=== PATIENT | male | born 1980 | race African-American/Black ===

== ENCOUNTER 2019-01-09 17:43 | Emergency (ER) | payer OTHER ==
--- OUTSIDE RECORDS SUMMARY | 2019-01-09 17:47 | XMS REPORT | Summary of Care ---
:1980 Author Name Emily Michael Address Unavailable Unavailable , Care Team Providers Name Role Phone Emily Michael Unavailable Unavailable BENJA Mcfadden, ROBERT Unavailable Unavailable BIJOU N.P., JERNAE Unavailable Unavailable HINCKS DO UT, SERJIO L Unavailable Unavailable HINCKS D.O., SERJIO Unavailable Unavailable TAMMY LOJA UT, VÍCTOR MAYS Unavailable Unavailable BENJA LOJA UT, POURSTEPHEN Unavailable Unavailable BIJOU [employer] UT, JERNAE F Unavailable Unavailable SY LOJA, LIANET Unavailable Unavailable Unavailable Unavailable Unavailable Functional Status Name Dates Details Functional status health issues are not documented Status: Name Dates Details Cognitive status health issues are not documented Status: Problems Name Dates Details Carpal tunnel syndrome of right wrist (354.0, G56.01) Status: Active Cubital tunnel syndrome on right (354.2, G56.21) Status: Active Obstructive sleep apnea, adult (327.23, G47.33) Status: Active Acute pain of right knee (719.46, M25.561) Status: Active Chronic GERD (530.81, K21.9) Status: Active Acute pharyngitis (462, J02.9) Status: Active Migraine headache (346.90, G43.909) Status: Active Benign essential HTN (401.1, I10) Status: Active Cyclical vomiting (536.2, G43.A0) Status: Active Medications Name Dates Details amLODIPine Besylate 10 MG Oral Tablet TAKE 1 TABLET DAILY. Quantity: 90 Refills: 3 ROBERT YOUSIF M.D. Start : 03-Jun-2018 Active Omeprazole 40 MG Oral Capsule Delayed Release TAKE 1 CAPSULE DAILY Quantity: 30 Refills: 1 BIJOU N.P., JERNAE Start : 15-Jul-2018 Active Ondansetron HCl - 4 MG Oral Tablet Take 1 tablet every 6 hours prn for nausea Quantity: 40 Refills: 0 BIJOU N.P., JERNAE Start : 22-Jul-2018 Active SUMAtriptan Succinate 6 MG/0.5ML Subcutaneous Solution Auto-injector inject PRN onset of the cluster headaches, may repeat in 2 h, if headache persists. Quantity: 6 Refills: 11 ROBERT YOUSIF M.D. Start : 02-Oct-2018 Active 2 x 0.5 ML Syringe Allergies and Adverse Reactions Name Dates Details Acetaminophen TABS (Allergy) Reaction: Headache Status: Active Past Medical History Name Dates Details History of arthritis (V13.4, Z87.39) Status: Resolved History of asthma (V12.69, Z87.09) Status: Resolved History of back pain (V13.59, Z87.39) Status: Resolved History of Cubital tunnel syndrome on right (354.2, G56.21) Status: Resolved History of essential hypertension (V12.59, Z86.79) Status: Resolved History of Infection of skin and subcutaneous tissue due to fungus (111.9, B36.9) Status: Resolved History of viral gastroenteritis (V12.09, Z86.19) Status: Resolved Procedures Procedure Dates Details History of Cubital tunnel repair Completed History of Appendectomy Completed History of Wrist surgery Completed History of Hemorrhoidectomy Completed Immunization Name Dates Details Fluzone Quadrivalent 0.5 ML Intramuscular Suspension on: 03-Jun-2018 Lot #: [id number] Family History Name Dates Details Family history of diabetes mellitus (V18.0, Z83.3) Comments: Family History Status: Active Family history of Heart trouble (429.9, I51.9) Comments: Family History Status: Active Family history of hypertension (V17.49, Z82.49) Comments: Family History Status: Active Family history of arthritis (V17.7, Z82.61) Comments: Family History Status: Active Family history of malignant neoplasm (V16.9, Z80.9) Comments: Family History Status: Active Family history of cerebrovascular accident (CVA) (V17.1, Z82.3) Comments: Family History Status: Active Name Dates Details Family history of asthma (V17.5, Z82.5) Status: Active Name Dates Details Family history of multiple sclerosis (V17.2, Z82.0) Status: Active Name Dates Details Family history of Knee pain (719.46, M25.569) Status: Active Social History Name Dates Details - Status: Name Dates Details Former smoker Vital Signs Date Test Result Details No Known Vitals to report Results Date Description Value Details Results not documented Plan of Care Name Dates Details Planned Observations Planned Goals not documented Planned Encounters Appointment; MICHAEL LICONA M.D. On: 13-Mar-2019 9:00 Instructions Name Dates Details Instructions not documented Encounters Appointment; SERJIO HUERTA D.O. On: 03-Jun-2018 13:45 Encounter Diagnosis: Problem not documented Appointment; ANNETTE MUNOZ M.D. On: 17-Jun-2018 15:45 Encounter Diagnosis: Problem not documented Appointment; SERJIO HUERTA D.O. On: 19-Jun-2018 8:15 Encounter Diagnosis: Problem not documented Appointment; ANNETTE MUNOZ M.D. On: 30-Jun-2018 10:15 Encounter Diagnosis: Problem not documented Appointment; ANNETTE MUNOZ M.D. On: 09-Jul-2018 13:00 Encounter Diagnosis: Problem not documented Appointment; ANNETTE MUNOZ M.D. On: 15-Jul-2018 10:30 Encounter Diagnosis: Problem not documented Appointment; ANNETTE MUNOZ M.D. On: 22-Jul-2018 11:15 Encounter Diagnosis: Problem not documented Appointment; LORENZA SCHMITT M.D. On: 25-Jul-2018 10:30 Encounter Diagnosis: Problem not documented Appointment; ANNETTE MUNOZ M.D. On: 29-Jul-2018 14:30 Encounter Diagnosis: Problem not documented Appointment; ANNETTE MUNOZ M.D. On: 22-Aug-2018 9:30 Encounter Diagnosis: Problem not documented Appointment; ROBERT YOUSIF M.D. On: 22-Sep-2018 15:30 Encounter Diagnosis: Problem not documented Appointment; BRANT CEJA NP On: 25-Sep-2018 10:30 Encounter Diagnosis: Problem not documented Appointment; ROBERT YOUSIF M.D. On: 02-Oct-2018 15:00 Encounter Diagnosis: Problem not documented
--- OUTSIDE RECORDS SUMMARY | 2019-01-09 17:47 | XMS REPORT | Clinical Summary ---
:1980 Author Organization [facility] Address [address] [place] [address] Care Team Providers Name Role Phone Asked, No Pcp Primary Care Provider Unavailable Allergies No Known Allergies Medications Medication Sig Dispensed Refills Start Date End Date Status amLODIPine (NORVASC) Take 1 tablet 30 tablet 0 05/26/2018 05/26/2019 Active 10 mg tablet (10 mg total) by mouth daily. atorvastatin (LIPITOR) Take 1 tablet 30 tablet 0 05/26/2018 05/26/2019 Active 10 MG tablet (10 mg total) by mouth daily. Active Problems Problem Noted Date Syncope 05/25/2018 Encounters Date Type Specialty Care Team Description 05/25/2018 - Emergency General Internal Rivenes, Marzena Syncope, unspecified syncope type (Primary Dx); 05/26/2018 Husam Miller MD Elevated CK Indra Farrell MD after 01/08/2018 Social History Tobacco Use Types Packs/Day Years Used Date Former Smoker Cigarettes Quit: 04/25/2018 Smokeless Tobacco: Never Used Alcohol Use Drinks/Week oz/Week Comments No Sex Assigned at Date Recorded Not on file Job Start Date Occupation Industry Not on file Not on file Not on file Travel History Travel Start Travel End No recent travel history available. Last Filed Vital Signs Vital Sign Reading Time Taken Blood Pressure 146/83 05/26/2018 11:34 AM CDT Pulse 57 05/26/2018 11:34 AM CDT Temperature 36.6 C (97.8 F) 05/26/2018 11:34 AM CDT Respiratory Rate 16 05/26/2018 11:34 AM CDT Oxygen Saturation 97% 05/26/2018 11:34 AM CDT Inhaled Oxygen Concentration - - Weight 144 kg (318 lb) 05/26/2018 6:26 AM CDT Height 190.5 cm (6' 3") 05/25/2018 9:22 AM CDT Body Mass Index 39.75 05/25/2018 9:22 AM CDT Plan of Treatment Health Maintenance Due Date Last Done Comments INFLUENZA VACCINE 03/12/2019 Procedures Procedure Name Priority Date/Time Associated Comments Diagnosis ECHOCARDIOGRAM 2D Routine 05/26/2018 10:10 Results for this COMPLETE W MMODE AM CDT procedure are in SPECTRAL COLOR DOPPLER the results (31954) section. EEG AWAKE/DROWSY LESS Routine 05/26/2018 8:50 Results for this THAN 41 MIN AM CDT procedure are in the results section. ESTIMATED GFR Routine 05/26/2018 5:15 Results for this AM CDT procedure are in the results section. TROPONIN Timed 05/26/2018 5:15 Results for this AM CDT procedure are in the results section. MAGNESIUM LEVEL Routine 05/26/2018 5:15 Results for this AM CDT procedure are in the results section. BASIC METABOLIC PANEL Routine 05/26/2018 5:15 Results for this AM CDT procedure are in the results section. CREATINE KINASE, TOTAL Routine 05/26/2018 5:15 Results for this (CPK) AM CDT procedure are in the results section. HC COMPLETE BLD COUNT Routine 05/26/2018 5:15 Results for this W/AUTO DIFF AM CDT procedure are in the results section. TROPONIN Timed 05/25/2018 10:25 Results for this PM CDT procedure are in the results section. CREATINE KINASE, TOTAL Timed 05/25/2018 10:25 Results for this (CPK) PM CDT procedure are in the results section. MRI BRAIN WO CONTRAST STAT 05/25/2018 7:42 Results for this PM CDT procedure are in the results section. T4, FREE Routine 05/25/2018 5:30 Results for this PM CDT procedure are in the results section. THYROID STIMULATING Routine 05/25/2018 5:30 Results for this HORMONE PM CDT procedure are in the results section. LIPID PANEL Routine 05/25/2018 5:30 Results for this PM CDT procedure are in the results section. HEMOGLOBIN A1C Routine 05/25/2018 5:30 Results for this PM CDT procedure are in the results section. ALCOHOL LEVEL, BLOOD Routine 05/25/2018 5:30 Results for this PM CDT procedure are in the results section. SALICYLATE LEVEL Routine 05/25/2018 5:30 Results for this PM CDT procedure are in the results section. US RENAL STAT 05/25/2018 4:56 Results for this PM CDT procedure are in the results section. US CAROTID DUPLEX Routine 05/25/2018 4:55 Results for this BILATERAL PM CDT procedure are in the results section. TROPONIN Timed 05/25/2018 3:16 Results for this PM CDT procedure are in the results section. CREATINE KINASE, TOTAL STAT 05/25/2018 1:00 Results for this (CPK) PM CDT procedure are in the results section. URINE DRUGS OF ABUSE STAT 05/25/2018 11:44 Results for this SCREEN AM CDT procedure are in the results section. URINALYSIS SCREEN AND Routine 05/25/2018 11:44 Results for this MICROSCOPY, WITH REFLEX AM CDT procedure are in TO CULTURE the results section. GRAM STAIN Routine 05/25/2018 11:24 Results for this AM CDT procedure are in the results section. URINE CULTURE Routine 05/25/2018 11:24 Results for this AM CDT procedure are in the results section. CT HEAD WO CONTRAST STAT 05/25/2018 10:05 Results for this AM CDT procedure are in the results section. ECG 12-LEAD STAT 05/25/2018 9:48 Results for this AM CDT procedure are in the results section. ECG ED PRELIMINARY Routine 05/25/2018 9:42 Results for this INTERPRETATION AM CDT procedure are in the results section. TROPONIN STAT 05/25/2018 9:40 Results for this AM CDT procedure are in the results section. ESTIMATED GFR STAT 05/25/2018 9:40 Results for this AM CDT procedure are in the results section. B NATRIURETIC PEPTIDE STAT 05/25/2018 9:40 Results for this AM CDT procedure are in the results section. LIPASE LEVEL STAT 05/25/2018 9:40 Results for this AM CDT procedure are in the results section. CREATINE KINASE, TOTAL STAT 05/25/2018 9:40 Results for this (CPK) AM CDT procedure are in the results section. COMPREHENSIVE METABOLIC STAT 05/25/2018 9:40 Results for this PANEL AM CDT procedure are in the results section. HC COMPLETE BLD COUNT STAT 05/25/2018 9:40 Results for this W/AUTO DIFF AM CDT procedure are in the results section. POC GLUCOSE Routine 05/25/2018 9:33 Results for this AM CDT procedure are in the results section. after 01/08/2018 Results Echocardiogram complete w contrast and 3D if needed (05/26/2018 10:10 AM CDT) Velocity Ratio (V1/V2) 0.86 m/s [facility] IVS,d 1.33 cm [facility] Ao root annulus 3.05 cm [facility] EF 73.80 % [facility] LVPWD,d 1.29 cm [facility] AoV Mean PG 4.97 mmHg [facility] AV LVOT peak gradient 6.47 mmHg [facility] MV valve area p 1/2 method 3.60 cm2 [facility] PV Pk Grad 3.80 mmHg [facility] E/A ratio 1.45 [facility] E wave decelartion time 210.78 msec [facility] IVRT 86.51 msec [facility] LVOT Diam,S 2.52 cm [facility] LVOT area 4.99 cm2 [facility] LVOT Vmax 1.27 m/s [facility] LVOT VTI 0.28 m [facility] AoV Peak PG 8.63 mmHg [facility] MV Peak E Eric 1.00 m/s [facility] MV stenosis pressure 1/2 time 61.13 ms [facility] MV Peak A Eric 0.69 m/s [facility] AoV Area, Vmax 4.32 cm2 [facility] AoV Area, VTI 4.38 cm2 [facility] AoV Vmax 1.47 m/s [facility] IVS/LVPW,2D 1.03 [facility] LV,d 5.05 cm [facility] LV,s 2.88 cm [facility] PV VMAX 0.97 m/s [facility] RVSP (TR) 25.05 mmHg [facility] TR Vpeak 1.94 mm/s [facility] MV E A ratio 1.46 [facility] TR pk grad 15.05 mmHg [facility] RVSP 25.05 mmHg [facility] LV SYS VOL 31.70 ml [facility] LV MARIE VOL 120.98 ml [facility] LV SV Teich 2D 89.28 ml [facility] LV Vol s Teich PSAX 31.70 ml [facility] AoV Vmn 1.07 [facility] LA Ao Ratio Mmode 1.56 [facility] LV FS Cube 2D 42.94 [facility] LV FS Teich 2D 42.94 [facility] AoV VTI 0.32 m [facility] LV EF,2D 81.42 % [facility] MV AE ratio 0.68 [facility] LVOT Vmn 1.03 [facility] Aov area Vmn 4.77 cm2 [facility] LVOT mean grad 4.44 mmHg [facility] MAX Pred HR 182.03 [facility] 85 of MPHR 154.73 [facility] Calc MPHR 182.03 bpm [facility] LV SV Cube 2D 104.83 ml [facility] LV vol d cube 2D 128.75 ml [facility] LV vol s cube 2D 23.92 ml [facility] MV Decel slope 4.76 m/s2 [facility] Pred Exer Dur R1 12.09 [facility] Pred METS R1 12.30 [facility] Specimen Narrative Performed At Left ventricular systolic function is normal. [facility] Left Ventricular ejection fraction is 60 - 65%. No pericardial effusion Right Ventricle: Normal right ventricular size, wall thickness and global function. No evidence of pulmonary hypertension present. Spectral Doppler shows normal pattern of LV diastolic filling. Normal LV filling pressure. No significant valvular heart disease Performing Organization Address City/State/Zipcode Phone Number [facility] [address] [place] [address] EEG (routine) (05/26/2018 8:50 AM CDT) Narrative Performed At Date of Service: May 26, 2018. [facility] DEPARTMENT OF PATHOLOGY AND Date of EEG interpretation: May 26, 2018. GENOMIC MEDICINE Routine Inpatient Electroencephalogram Report History: 37 y.o. male with a history of syncope evaluated for underlying cerebral activity and epileptic seizures. Technical Description: The record consists of a greater than 20 minute digitally recorded multi-montage EEG with 21 electrodes placed according to the International 10/20 system.An EKG strip was recorded continuously.True eye leads were not employed.True temporal leads were not employed. EEG Description: When maximally aroused, the awake background was characterized by a well-developed 9-10 Hz, 20 to 40 microvolts symmetric posterior rhythm that attenuated appropriately to eye opening.The patient becomes drowsy over the course of the recording as evidenced by the dropout of the posterior rhythm and the emergence of a diffuse 2 to 7 Hz, 40 to 60 microvolts irregular slow activity. Sleep Recording: Sleep was not recorded. Activation Procedures: Hyperventilation was not performed. Photic stimulation utilizing flash frequencies ranging from 5 to 30 Hz did not elicit any paroxysmal discharges. EEG Interpretation:This was a normal awake and drowsy EEG. 1. No paroxysmal discharges were observed. Clinical Correlation: Findings are consistent with: 1. The absence of interictal epileptiform discharges does not rule out an underlying tendency for unprovoked seizures (epilepsy).Note, however, that an EEG recording preceded by sleep deprivation or a prolonged recording during sleep would increase the statistical likelihood of detecting interictal discharges, and should be considered if pursuing a diagnosis of epilepsy. Performing Organization Address [facility] Phone Number [facility] DEPARTMENT OF PATHOLOGY [address] [place] [address]. [place] [address] AND [email or web address] Estimated GFR (05/26/2018 5:15 AM CDT)Only the most recent of2 resultswithin the time period is included. [facility] Estimated GFR >=90 mL/min/1.73 [facility] DEPARTMENT Comment: m2 OF PATHOLOGY AND CatergoryUnitsInterpretation GENOMIC MEDICINE G1 >=90 Normal or high G2 60-89Mildly decreased [id number] to moderately decreased G4s96-31Djbnacitom to severely decreased G4 15-29Severely decreased G5 <15Kidney failure The eGFR was calculated using the Chronic Kidney Disease Epidemiology Collaboration (CKD-EPI) equation. Interpretation is based on recommendations of the National Kidney Foundation-Kidney Disease Outcomes Quality Initiative (NKF-KDOQI) published in 2014. Specimen Plasma specimen Performing Organization Address [facility] Phone Number [facility] DEPARTMENT OF PATHOLOGY [address] [place] [address]. [place] [address] AND [employer] [facility] Troponin (05/26/2018 5:15 AM CDT)Only the most recent of4 resultswithin the time period is included. Pathologist [facility] Troponin <0.30 0.00 - 0.30 [facility] DEPARTMENT OF Comment: ng/mL PATHOLOGY AND 0.11 - 1.49 ng/mlMay indicate increased risk of acute GENOMIC MEDICINE coronary syndrome. >=1.5 ng/mlConsistent with acute myocardial infarction. The diagnostic value of a single normal or non-diagnostic result is questionable.Serial samples at 2-6 hour intervals are required to rule out acute myocardial injury. Specimen Plasma specimen Performing Organization Address [facility] Phone Number [facility] DEPARTMENT OF PATHOLOGY [address] [place] [id number] AND [facility] CBC with platelet and differential (05/26/2018 5:15 AM CDT)Only the most recent of2 resultswithin the time period is included. WBC 6.9 4.5 - 11.0 k/uL [facility] DEPARTMENT OF PATHOLOGY AND GENOMIC MEDICINE RBC 4.76 4.40 - 6.00 [facility] DEPARTMENT OF m/uL PATHOLOGY AND GENOMIC MEDICINE HGB 13.4 (L) 14.0 - 18.0 [facility] DEPARTMENT OF g/dL PATHOLOGY AND GENOMIC MEDICINE HCT 42.0 41.0 - 51.0 % [facility] DEPARTMENT OF PATHOLOGY AND GENOMIC MEDICINE MCV 88.2 82.0 - 100.0 fL [facility] DEPARTMENT OF PATHOLOGY AND GENOMIC MEDICINE MCH 28.2 27.0 - 34.0 pg [facility] DEPARTMENT OF PATHOLOGY AND GENOMIC MEDICINE MCHC 31.9 31.0 - 37.0 [facility] DEPARTMENT OF g/dL PATHOLOGY AND GENOMIC MEDICINE RDW - SD 47.4 37.0 - 55.0 fL [facility] DEPARTMENT OF PATHOLOGY AND GENOMIC MEDICINE MPV 11.2 (H) 6.9 - 11.0 fL [facility] DEPARTMENT OF PATHOLOGY AND GENOMIC MEDICINE Platelet count 160 150 - 400 K/uL [facility] DEPARTMENT OF PATHOLOGY AND GENOMIC MEDICINE Nucleated RBC 0.00 /100 WBC [facility] DEPARTMENT OF PATHOLOGY AND GENOMIC MEDICINE Neutrophils 42.7 39.0 - 69.0 % [facility] DEPARTMENT OF PATHOLOGY AND GENOMIC MEDICINE Lymphocytes 44.9 25.0 - 45.0 % [facility] DEPARTMENT OF PATHOLOGY AND GENOMIC MEDICINE Monocytes 6.7 0.0 - 10.0 % [facility] DEPARTMENT OF PATHOLOGY AND GENOMIC MEDICINE Eosinophils 5.2 (H) 0.0 - 5.0 % [facility] DEPARTMENT OF PATHOLOGY AND GENOMIC MEDICINE Basophils 0.4 0.0 - 1.0 % [facility] DEPARTMENT OF PATHOLOGY AND GENOMIC MEDICINE Immature granulocytes 0.1 0.0 - 1.0 % [facility] DEPARTMENT OF PATHOLOGY AND GENOMIC MEDICINE Specimen Blood Performing Organization Address City/[facility]/Zipcode Phone Number [facility] DEPARTMENT OF PATHOLOGY [id number] [place] [id number] AND [facility] Magnesium level (05/26/2018 5:15 AM CDT) Magnesium 1.8 1.6 - 2.6 mg/dL [facility] DEPARTMENT OF PATHOLOGY AND GENOMIC MEDICINE Specimen Plasma specimen Performing Organization Address City/[facility] Phone Number [facility] DEPARTMENT OF PATHOLOGY [address] [place] [address] AND [facility] Creatine kinase, total (CPK) (05/26/2018 5:15 AM CDT)Only the most recent of4 resultswithin the time period is included. Creatine kinase 828 (H) 39 - 308 U/L [facility] DEPARTMENT OF PATHOLOGY [facility] Specimen Plasma specimen Performing Organization Address [facility] Phone Number [facility] DEPARTMENT OF PATHOLOGY [address] [place] [address] AND [facility] Basic metabolic panel (05/26/2018 5:15 AM CDT) Sodium 142 135 - 148 mEq/L [facility] DEPARTMENT OF PATHOLOGY AND GENOMIC MEDICINE Potassium 4.3 3.5 - 5.0 mEq/L [facility] DEPARTMENT OF PATHOLOGY AND GENOMIC MEDICINE Chloride 111 98 - 112 mEq/L [facility] DEPARTMENT OF PATHOLOGY AND GENOMIC MEDICINE CO2 20 (L) 24 - 31 mEq/L [facility] DEPARTMENT OF PATHOLOGY AND GENOMIC MEDICINE Anion gap 11@ANIO 7 - 15 mEq/L [facility] DEPARTMENT OF PATHOLOGY AND GENOMIC MEDICINE BUN 14 6 - 20 mg/dL [facility] DEPARTMENT OF PATHOLOGY AND GENOMIC MEDICINE Creatinine 1.13 0.70 - 1.20 mg/dL [facility] DEPARTMENT OF PATHOLOGY AND GENOMIC MEDICINE Glucose 94 65 - 99 mg/dL [facility] DEPARTMENT OF PATHOLOGY AND GENOMIC MEDICINE Calcium 8.5 8.3 - 10.2 mg/dL [facility] DEPARTMENT OF PATHOLOGY AND [employer] MEDICINE Specimen Plasma specimen Performing Organization Address [facility] Phone Number [facility] DEPARTMENT OF PATHOLOGY [address] [place] [address] AND [facility] MRI Brain Wo Contrast (05/25/2018 7:42 PM CDT) Specimen Narrative Performed At This [facility] has an attachment that is not available. EXAM: MRI BRAIN WO CONTRAST RADIANT CLINICAL HISTORY: dizzinesssyncope and collapsed TECHNIQUE: Multiplanar and multisequence MRI imaging of the brain was obtained without contrast. COMPARISON:CT brain, same day FINDINGS: No diffusion restriction to suggest acute infarct. Parenchymal volume is within normal limits. No acute intracranial hemorrhage, mass, hydrocephalus, or extra-axial fluid collection identified. Although this examination is not optimized for the sella, pituitary is grossly normal in appearance. Midline structures are maintained. The major flow voids in the skull base are identified. Orbits are unremarkable. Paranasal sinuses are clear. Mastoid air cells are normally pneumatized. IMPRESSION: No acute intracranial abnormality identified. [facility]-[id number] Procedure Note Interface, Radiology Results Incoming - 05/25/2018 7:55 PM CDT EXAM: MRI BRAIN WO CONTRAST CLINICAL HISTORY: dizziness syncope and collapsed TECHNIQUE: Multiplanar and multisequence MRI imaging of the brain was obtained without contrast. COMPARISON: CT brain, same day FINDINGS: No diffusion restriction to suggest acute infarct. Parenchymal volume is within normal limits. No acute intracranial hemorrhage, mass, hydrocephalus, or extra-axial fluid collection identified. Although this examination is not optimized for the sella, pituitary is grossly normal in appearance. Midline structures are maintained. The major flow voids in the skull base are identified. Orbits are unremarkable. Paranasal sinuses are clear. Mastoid air cells are normally pneumatized. IMPRESSION: No acute intracranial abnormality identified. [facility]-[id number] Performing Organization Address [facility]/Zipcode Phone Number [facility] [address] [place] [address] Thyroid stimulating hormone (05/25/2018 5:30 PM CDT) TSH 1.46 0.27 - 4.20 uIU/mL [facility] DEPARTMENT OF PATHOLOGY AND GENOMIC MEDICINE Specimen Plasma specimen Performing Organization Address [facility] Phone Number [facility] DEPARTMENT OF PATHOLOGY [id number] [place] [address] AND [facility] T4, free (05/25/2018 5:30 PM CDT) T4, free 1.3 0.9 - 1.7 ng/dL [facility] DEPARTMENT OF PATHOLOGY AND GENOMIC MEDICINE Specimen Plasma specimen Performing Organization Address [facility] Cent[facility]ode Phone Number [facility] DEPARTMENT OF PATHOLOGY [address] [place] [address] AND [facility] Hemoglobin A1c (05/25/2018 5:30 PM CDT) Hemoglobin A1C 5.6 4.0 - 6.0 % [facility] DEPARTMENT OF Comment: PATHOLOGY AND GENOMIC MEDICINE Less than 6% - Goal of therapy for Type II Diabetes Less than 7%-Goal of therapy for Type I Diabetes Less than 8%-Acceptable control for Type I or Type II Diabetes Greater than 8%-Unacceptable control; action indicated. (ADA94) Specimen Blood Performing Organization Address City/State/Zipcode Phone Number [facility] DEPARTMENT OF PATHOLOGY [address] [place] [address] AND [facility] MEDICINE Alcohol level, blood (05/25/2018 5:30 PM CDT) Alcohol None Detected mg/dL [facility] DEPARTMENT OF Comment: PATHOLOGY AND Normal None Detected GENOMIC MEDICINE Legal Intoxication in [place]80 mg/dL (0.08%) - Whole Blood Toxic Pkezrxspjmuos329 mg/dL (0.2%) Potentially Cogfb210 - 500 mg/dL (0.35 - 0.5%) Alcohol percent None Detected % [facility] DEPARTMENT OF PATHOLOGY AND GENOMIC MEDICINE Specimen Plasma specimen Performing Organization Address City/[facility]/Zipcode Phone Number [facility] DEPARTMENT OF PATHOLOGY [address] [place] [address] AND [facility] Salicylate level (05/25/2018 5:30 PM CDT) Salicylate <0.4 (L) 3.0 - 30.0 mg/dL [facility] DEPARTMENT OF PATHOLOGY AND GENOMIC MEDICINE Specimen Plasma specimen Performing Organization Address City/[facility] Centercode Phone Number [facility] DEPARTMENT OF PATHOLOGY [address] [place] [address] AND [facility] Lipid panel (05/25/2018 5:30 PM CDT) Cholesterol 204 (H) 0 - 199 [facility] DEPARTMENT mg/dL OF PATHOLOGY AND GENOMIC MEDICINE Triglycerides 51 0 - 149 [facility] DEPARTMENT mg/dL OF PATHOLOGY AND GENOMIC MEDICINE HDL cholesterol 63 40 - 99,999 [facility] DEPARTMENT mg/dL OF PATHOLOGY AND GENOMIC MEDICINE LDL cholesterol 140 (H) 0 - 99 [facility] DEPARTMENT mg/dL OF PATHOLOGY AND GENOMIC MEDICINE Lipid panel See below [facility] DEPARTMENT interpretation Comment: OF PATHOLOGY AND Total Cholesterol (mg/dL) GENOMIC MEDICINE <200 Desirable 413-633Bfgekcdjss-xiww >=240High Triglycerides (mg/dL) <150 Normal 189-882Uyqbsusvbb-zjsp 200-499High >=500Very high HDL Cholesterol (mg/dL) <40Low (male) <50Low (female) LDL Cholesterol (mg/dL) <100 Optimal 100-129Near or above optimal 221-139Hfavkjkcox-cgzu 160-189High >=190Very high Risk Catergories that modify LDL goals. Risk CatergoriesLDL goal (mg/dL) CHD and CHD risk equivalent<100 (10-year risk >20%) Multiple (2+) risk factors <130 (10-year risk=<20%) 0-1 risk factors <160 (<10-year risk) Defining levels of lipids in metabolic syndrome Triglycerides>=150 mg/dL HDL Cholesterol Men<40 mg/dL Women<50 mg/dL Non-HDL cholesterol is a second target for therapy in persons with high triglycerides (>=200 mg/dL) Specimen Plasma specimen Performing Organization Address City/State/Zipcode Phone Number [facility] DEPARTMENT OF PATHOLOGY [address] [place] [address] AND [employer] MEDICINE Renal (05/25/2018 4:56 PM CDT) Specimen Narrative Performed At [facility] CLINICAL INDICATION:Renal failureacute (kidney injury) COMPARISON:None. FINDINGS: The exam is moderately limited given patient's body habitus and associated acoustic windows. No distinct renal mass or hydronephrosis is identified within limits. There is no shadowing calculus. The right kidney measures 5.3 x 7.8 x 12.9 cm. The left kidney measures 5.6 x 6.1 x 12.0 cm. The urinary bladder is unremarkable. IMPRESSION: Limited renal ultrasound as described without hydronephrosis. Thank you for allowing us to participate in the care of your patient. [facility]-[id number] Procedure Note Interface, Radiology Results Incoming - 05/25/2018 5:07 PM CDT US RENAL CLINICAL INDICATION: Renal failure acute (kidney injury) COMPARISON: None. FINDINGS: The exam is moderately limited given patient's body habitus and associated acoustic windows. No distinct renal mass or hydronephrosis is identified within limits. There is no shadowing calculus. The right kidney measures 5.3 x 7.8 x 12.9 cm. The left kidney measures 5.6 x 6.1 x 12.0 cm. The urinary bladder is unremarkable. IMPRESSION: Limited renal ultrasound as described without hydronephrosis. Thank you for allowing us to participate in the care of your patient. [facility]-[id number] Performing Organization Address [facility] Centercode Phone Number [facility] [address] [place] [address] Pv carotid duplex (05/25/2018 4:55 PM CDT) Specimen Narrative Performed At [facility] Exam: Bilateral carotid artery Doppler History: syncope Technique: Examination includes full duplex Doppler scan of the blood vessels (real-time B mode grayscale, Doppler spectral analysis, Doppler color flow imaging) of the common carotid, internal carotid, external carotid, and vertebral arteries. Velocity parameters are based upon studies using the distal internal carotid artery as a denominator for stenosis calculation. Findings: *No significant atherosclerotic plaque in either carotid artery. *The peak systolic velocity in the right internal carotid artery is 52 cm/s and the peak systolic velocity in the right common carotid artery is 137 cm/s. *The peak systolic velocity in the left internal carotid artery is 64 cm/s and the peak systolic velocity in the left common carotid artery is 187 cm/s. *The vertebral arteries are patent and demonstrate antegrade flow. Impression: 1. No significant atherosclerotic plaque or stenosis in either carotid artery. 2 .The vertebral arteries are patent and demonstrate antegrade flow. [id number] Procedure Note Interface, Radiology Results Incoming - 05/25/2018 5:01 PM CDT Exam: Bilateral carotid artery Doppler History: syncope Technique: Examination includes full duplex Doppler scan of the blood vessels ( real-time B mode grayscale, Doppler spectral analysis, Doppler color flow imaging) of the common carotid, internal carotid, external carotid, and vertebral arteries. Velocity parameters are based upon studies using the distal internal carotid artery as a denominator for stenosis calculation. Findings: * No significant atherosclerotic plaque in either carotid artery. * The peak systolic velocity in the right internal carotid artery is 52 cm/s and the peak systolic velocity in the right common carotid artery is 137 cm/s. * The peak systolic velocity in the left internal carotid artery is 64 cm/s and the peak systolic velocity in the left common carotid artery is 187 cm/s. * The vertebral arteries are patent and demonstrate antegrade flow. Impression: 1. No significant atherosclerotic plaque or stenosis in either carotid artery. 2 .The vertebral arteries are patent and demonstrate antegrade flow. [id number] Performing Organization Address [facility] Centercode Phone Number [facility] [address] [place] [phone] Urinalysis screen and microscopy, with reflex to culture (05/25/2018 11:44 AM CDT) Specimen site Clean catch [facility] DEPARTMENT OF PATHOLOGY AND GENOMIC MEDICINE Color, UA Yellow [facility] DEPARTMENT OF PATHOLOGY AND GENOMIC MEDICINE Appearance, UA Clear [facility] DEPARTMENT OF PATHOLOGY AND GENOMIC MEDICINE Specific gravity, UA 1.020 1.001 - 1.030 [facility] DEPARTMENT OF PATHOLOGY AND GENOMIC MEDICINE pH, UA 6.0 5.0 - 9.0 [facility] DEPARTMENT OF PATHOLOGY AND GENOMIC MEDICINE Protein, UA Negative Negative [facility] DEPARTMENT OF PATHOLOGY AND GENOMIC MEDICINE Glucose, UA Negative Negative [facility] DEPARTMENT OF PATHOLOGY AND GENOMIC MEDICINE Ketones, UA Negative Negative [facility] DEPARTMENT OF PATHOLOGY AND GENOMIC MEDICINE Bilirubin, UA Negative Negative [facility] DEPARTMENT OF PATHOLOGY AND GENOMIC MEDICINE Blood, UA Negative Negative [facility] DEPARTMENT OF PATHOLOGY AND GENOMIC MEDICINE Nitrite, UA Negative Negative [facility] DEPARTMENT OF PATHOLOGY AND GENOMIC MEDICINE Urobilinogen, UA <2.0 <2.0 E.U./dL [facility] DEPARTMENT OF PATHOLOGY AND GENOMIC MEDICINE Leukocyte esterase, Negative Negative [facility] DEPARTMENT OF UA PATHOLOGY AND GENOMIC MEDICINE Epithelial cells, UA <1 /HPF [facility] DEPARTMENT OF PATHOLOGY AND GENOMIC MEDICINE Round epithelial <1 0 - 5 /HPF [facility] DEPARTMENT OF cells, UA PATHOLOGY AND GENOMIC MEDICINE WBC, UA 7 (H) 0 - 1 /HPF [facility] DEPARTMENT OF PATHOLOGY AND GENOMIC MEDICINE RBC, UA 2 0 - 5 /HPF [facility] DEPARTMENT OF PATHOLOGY AND GENOMIC MEDICINE Bacteria, UA None seen None seen [facility] DEPARTMENT OF PATHOLOGY AND GENOMIC MEDICINE Yeast, UA None seen [facility] DEPARTMENT OF PATHOLOGY AND GENOMIC MEDICINE Yeast with None seen [facility] DEPARTMENT OF pseudohyphae, UA PATHOLOGY AND GENOMIC MEDICINE Specimen Urine Performing Organization Address City/State/Zipcode Phone Number [facility] DEPARTMENT OF PATHOLOGY [address] [place] [address] AND [facility] Urine drugs of abuse screen (05/25/2018 11:44 AM CDT) Pathologist [facility] Amphetamine screen, Negative [facility] DEPARTMENT urine OF PATHOLOGY AND GENOMIC MEDICINE Barbiturate screen, Negative [facility] DEPARTMENT urine OF PATHOLOGY AND GENOMIC MEDICINE Benzodiazepine Negative [facility] DEPARTMENT screen, urine OF PATHOLOGY AND GENOMIC MEDICINE Cannabinoid screen, Positive (A) [facility] DEPARTMENT urine OF PATHOLOGY AND GENOMIC MEDICINE Cocaine screen, urine Negative [facility] DEPARTMENT OF PATHOLOGY AND GENOMIC MEDICINE Methadone metabolite Negative [facility] DEPARTMENT (EDDP), urine OF PATHOLOGY AND GENOMIC MEDICINE Opiates screen, urine Negative [facility] DEPARTMENT OF PATHOLOGY AND GENOMIC MEDICINE Phencyclidine screen, Positive (A) [facility] DEPARTMENT urine OF PATHOLOGY AND [facility] MEDICINE Tricyclic screen, Negative [facility] DEPARTMENT urine Comment: OF PATHOLOGY AND Drug screen minimum concentration of detectability GENOMIC MEDICINE [id number] ng/mL Barbiturates 200 ng/mL Nnmjqbzpfrmqxut920 ng/mL Bgmffkh266 ng/mL Ifddrslcw032 ng/mL Sqdrirf712 ng/mL Phencyclidine 25 ng/mL Tbldntghjjkr00 ng/mL Mymejrymza2496 ng/mL Negative test results indicates presumptive evidence of lack of clinically significant drug concentration in this urine specimen. Positive test results are presumptive evidence of clinically significant drug concentration in this urine specimen. Testing performed for medical purposes only. Specimen Urine Performing Organization Address City/[facility]/Zipcode Phone Number [facility] DEPARTMENT OF PATHOLOGY [address] [place] [address] AND [facility] MEDICINE Gram stain (05/25/2018 11:24 AM CDT) Gram stain result No WBC's or organisms seen. [facility] DEPARTMENT OF Comment: PATHOLOGY AND Specimen Information GENOMIC MEDICINE Specimen Source: Urine Specimen Site: Clean catch Specimen Urine Performing Organization Address City/[facility] Centercode Phone Number [facility] DEPARTMENT OF PATHOLOGY AND [address] [place] [phone] [facility] Urine culture (05/25/2018 11:24 AM CDT) Urine culture Mixed Gram positive yoselin [facility] DEPARTMENT OF isolate 10-2 cfu/ml PATHOLOGY AND (A) GENOMIC MEDICINE Comment: Specimen Information Specimen Source: Urine Specimen Site: Clean catch Specimen Urine Performing Organization Address [facility] Centercode Phone Number [facility] DEPARTMENT OF PATHOLOGY AND [address] [place], [place] [id number] [facility] CT Head Wo Contrast (05/25/2018 10:05 AM CDT) Specimen Narrative Performed At EXAMINATION:CT HEAD WO CONTRAST RADIANT CLINICAL HISTORY:syncope COMPARISON:None. TECHNIQUE: Noncontrast head CT performed using radiation dose reduction techniques.Technical factors are evaluated and adjusted to ensure appropriate moderation of exposure.Automated dose management technology is applied to adjust radiation exposure while achieving a diagnostic quality image. FINDINGS: The brain appears unremarkable with no evidence of hemorrhage, mass lesion, or midline shift. Albert-white matter differentiation is preserved with no evidence of acute territorial infarction. Ventricles, sulci, and cisterns are normal in size and configuration. There is no extra-axial fluid collection. Visualized paranasal sinuses and mastoid air cells are clear. Bones, orbits, and soft tissues are unremarkable. IMPRESSION: Unremarkable head CT with no acute intracranial abnormality. [facility]-[id number] Procedure Note Hm Interface, Radiology Results Incoming - 05/25/2018 10:15 AM CDT EXAMINATION: CT HEAD WO CONTRAST CLINICAL HISTORY: syncope COMPARISON: None. TECHNIQUE: Noncontrast head CT performed using radiation dose reduction techniques. Technical factors are evaluated and adjusted to ensure appropriate moderation of exposure. Automated dose management technology is applied to adjust radiation exposure while achieving a diagnostic quality image. FINDINGS: The brain appears unremarkable with no evidence of hemorrhage, mass lesion, or midline shift. Albert-white matter differentiation is preserved with no evidence of acute territorial infarction. Ventricles, sulci, and cisterns are normal in size and configuration. There is no extra-axial fluid collection. Visualized paranasal sinuses and mastoid air cells are clear. Bones, orbits, and soft tissues are unremarkable. IMPRESSION: Unremarkable head CT with no acute intracranial abnormality. [facility]-[id number] Performing Organization Address [facility] Centercomo Phone Number [facility] [address] [place] [address] ECG 12 lead (05/25/2018 9:48 AM CDT) [facility] Ventricular rate 73 [facility] Atrial rate 73 [facility] RI interval 228 [facility] QRSD interval 84 [facility] QT interval 342 [facility] QTC interval 376 [facility] P axis 1 49 [facility] QRS axis 1 -12 [facility] T wave axis 73 [facility] EKG impression Sinus rhythm with 1st [facility] degree AV block-Minimal voltage criteria for LVH, may be normal variant-Anterior infarct , age undetermined-Abnormal ECG-No previous ECGs available-Electronicall y Signed By Israel Cedeno MD ([id number]) on 05/26/2018 5:47:13 AM Specimen Performing Organization Address [facility] Centercomo Phone Number [facility] MUSE [address] [place] [address] ECG ED Preliminary Interpretation - NOT AN ORDER (05/25/2018 9:42 AM CDT) Narrative Performed At Brennan Cano NP 05/25/20187:17 PM ECG ED Preliminary Interpretation - Not an Order Performed by: BRENNAN CANO Authorized by: MARZENA CALIXTO ECG reviewed by ED Physician in the absence of a burrer machine: yes Interpretation: Interpretation: abnormal Rate: ECG rate:73 ECG rate assessment: normal Rhythm: Rhythm: sinus rhythm and A-V block Ectopy: Ectopy: none QRS: QRS axis:Normal (84) QRS intervals:Normal Conduction: Conduction: abnormal Abnormal conduction: 1st degree B natriuretic peptide (05/25/2018 9:40 AM CDT) BNP 44 0 - 100 pg/mL [facility] DEPARTMENT OF PATHOLOGY AND GENOMIC MEDICINE Specimen Blood Performing Organization Address City/[facility] Centercode Phone Number [facility] DEPARTMENT OF PATHOLOGY [address] [place] [address] AND [facility] Lipase level (05/25/2018 9:40 AM CDT) Lipase 16 13 - 60 U/L [facility] DEPARTMENT OF PATHOLOGY AND GENOMIC MEDICINE Specimen Plasma specimen Performing Organization Address City/[facility] Centercode Phone Number [facility] DEPARTMENT OF PATHOLOGY [address] [place] [address] AND [facility] Comprehensive metabolic panel (05/25/2018 9:40 AM CDT) Sodium 140 135 - 148 mEq/L [facility] DEPARTMENT OF PATHOLOGY AND GENOMIC MEDICINE Potassium 4.0 3.5 - 5.0 mEq/L [facility] DEPARTMENT OF PATHOLOGY AND GENOMIC MEDICINE Chloride 104 98 - 112 mEq/L [facility] DEPARTMENT OF PATHOLOGY AND GENOMIC MEDICINE CO2 25 24 - 31 mEq/L [facility] DEPARTMENT OF PATHOLOGY AND GENOMIC MEDICINE Anion gap 11@ANIO 7 - 15 mEq/L [facility] DEPARTMENT OF PATHOLOGY AND GENOMIC MEDICINE BUN 14 6 - 20 mg/dL [facility] DEPARTMENT OF PATHOLOGY AND GENOMIC MEDICINE Creatinine 1.25 (H) 0.70 - 1.20 [facility] DEPARTMENT OF mg/dL PATHOLOGY AND GENOMIC MEDICINE Glucose 103 (H) 65 - 99 mg/dL [facility] DEPARTMENT OF PATHOLOGY AND GENOMIC MEDICINE Calcium 9.9 8.3 - 10.2 [facility] DEPARTMENT OF mg/dL PATHOLOGY AND GENOMIC MEDICINE Protein 7.5 6.3 - 8.3 g/dL [facility] DEPARTMENT OF PATHOLOGY AND GENOMIC MEDICINE Albumin 4.4 3.5 - 5.0 g/dL [facility] DEPARTMENT OF PATHOLOGY AND GENOMIC MEDICINE A/G ratio 1.4 0.7 - 3.8 [facility] DEPARTMENT OF PATHOLOGY AND GENOMIC MEDICINE Alkaline phosphatase 82 40 - 129 U/L [facility] DEPARTMENT OF PATHOLOGY AND GENOMIC MEDICINE AST 35 10 - 50 U/L [facility] DEPARTMENT OF PATHOLOGY AND GENOMIC MEDICINE ALT 30 5 - 50 U/L [facility] DEPARTMENT OF PATHOLOGY AND GENOMIC MEDICINE Total bilirubin 0.8 0.2 - 1.2 mg/dL [facility] DEPARTMENT OF PATHOLOGY AND GENOMIC MEDICINE Specimen Plasma specimen Performing Organization Address City/State/Zipcode Phone Number [facility] DEPARTMENT OF PATHOLOGY [address] [place] [address] AND GENOMIC MEDICINE POC glucose (05/25/2018 9:33 AM CDT) POC glucose 118 (H) 65 - 99 mg/dL [facility] DEPARTMENT OF Comment: PATHOLOGY AND Meter ID: [id number] GENOMIC MEDICINE Picture Frames Inspector: Bryan Tafoya Specimen Performing Organization Address City/State/Zipcode Phone Number [facility] DEPARTMENT OF PATHOLOGY [address] [place] [address] AND GENOMIC MEDICINE after 01/08/2018 Advance Directives Patient has advance care planning documents on file. For more information, please contact:[place] [address]
--- NOTE | 2019-01-09 18:25 | RAD REPORT ---
EXAM DESCRIPTION: RAD - Hand Right 3 View - 01/09/2019 6:11 pm CLINICAL HISTORY: Right hand pain status post injury FINDINGS: No acute fracture or dislocation is seen.
[2019-01-09] MEDS ORDERED: HYDROCODONE/APAP 5/325 MG TAB ONE (18:43)
--- NOTE | 2019-01-09 19:09 | EDPHYS ---
Physician Documentation [facility] Name: Terry Akins Sr Age: 38 yrs Sex: Male : 1980 Arrival Date: 01/09/2019 Time: 17:44 Bed 6 Private MD: ED Physician Stephane Rizvi HPI: 01/09 18:00 This 38 yrs old Black Male presents to ER via Ambulatory with complaints of Hand Injury.jmm 18:00 The patient or guardian reports injury, pain. Onset: The symptoms/episode jmm began/occurred acutely, today. Modifying factors: the symptoms are aggravated by movement. Associated signs and symptoms: Pertinent negatives: cyanosis distally, decreased sensation distally, numbness distally, tingling distally, vomiting. This is a 38 year old male with no chronic medical conditions that presents to the ED with complaints of pain to his right hand. Patient states he punched a cabinet. . Historical: - Allergies: 17:49 No Known Allergies; sv - PMHx: 17:49 None; sv - PSHx: 17:49 Appendectomy; Hemorrhoidectomy; Ulinerve transplantation BUE; Carpal Tunnel Repair; sv Tendonitis left arm; - Immunization history:: Adult Immunizations. - Social history:: Smoking status: . - Ebola Screening: : Patient denies travel to an Ebola-affected area in the 21 days before illness onset. ROS: 18:00 Constitutional: Negative for fever, chills, and weight loss, Cardiovascular: Negative jmm for chest pain, palpitations, and edema, Respiratory: Negative for shortness of breath, cough, wheezing, and pleuritic chest pain. 18:00 MS/extremity: Positive for injury or acute deformity, pain, swelling. 18:00 All other systems are negative. Exam: 18:00 Constitutional: This is a well developed, well nourished patient who is awake, alert, jmm and in no acute distress. Head/Face: atraumatic. Eyes: EOMI, no conjunctival erythema appreciated ENT: Moist Mucus Membranes Neck: Trachea midline, Supple Chest/axilla: Normal chest wall appearance and motion. Cardiovascular: Regular rate and rhythm. No edema appreciated Respiratory: Normal respirations, no respiratory distress appreciated Abdomen/GI: Non distended, soft Back: Normal ROM Skin: General appearance color normal 18:00 Musculoskeletal/extremity: ROM: intact in all extremities, FROM appreciated to the right hand, mild swelling noted, < 2sec dist cap refill, pain is elicited on palpation of the 3rd metacarpal. compartments are soft, NVI. 18:00 Skin: Appearance: Color: normal in color. 18:00 Neuro: Orientation: is normal, Mentation: is normal, Memory: is normal. 18:00 Psych: Behavior/mood is pleasant, cooperative. Vital Signs: 17:49 BP 155 / 95; Pulse 103; Resp 20; Temp 99; Pulse Ox 98% ; Weight 131.54 kg; Height 6 ft. sv 3 in. (190.50 cm); Pain 10/10; 19:20 BP 149 / 87; Pulse 98; Resp 18 S; Temp 98.9(O); Pulse Ox 99% on R/A; cc3 17:49 Body Mass Index 36.25 (131.54 kg, 190.50 cm) sv MDM: 18:00 Patient medically screened. [facility] 19:07 Data reviewed: vital signs, nurses notes. Counseling: I had a detailed discussion with trixie the patient and/or guardian regarding: the historical points, exam findings, and any diagnostic results supporting the discharge/admit diagnosis, radiology results, the need for outpatient follow up, to return to the emergency department if symptoms worsen or persist or if there are any questions or concerns that arise at home. ED course: xray negative. no snuff box tenderness. patient advised to follow up with orth for reevaluation. . 01/09 17:56 Order name: Hand Right 3 View XRAY; Complete Time: 18:42 [facility] Administered Medications: 18:30 Drug: Dover 5 mg-325 mg 1 tabs Route: PO; tw2 19:15 Follow up: Response: No adverse reaction; Pain is unchanged, physician notified cc3 19:26 Drug: Ibuprofen 800 mg Route: PO; hb 19:40 Follow up: Response: No adverse reaction; Pain is decreased cc3 Disposition: 01/09/19 19:08 Discharged to Home. Impression: Sprain of unspecified part of wrist and hand. - Condition is Stable. - Discharge Instructions: Hand Contusion, Wrist Sprain. - Prescriptions for Ultracet 37.5- 325 mg Oral Tablet - take 1 tablet by ORAL route every 6 hours - for up to 5 days; do not exceed 8 tablets per day.; 12 tablet. - Medication Reconciliation Form, Thank You Letter, Antibiotic Education, Prescription Opioid Use, Work release form form. - Follow up: Sawyer Patrick MD; When: 2 - 3 days; Reason: Recheck today's complaints, Continuance of care, Re-evaluation by your physician. Addendum: 01/12/2019 07:01 Co-signature as Attending Physician, Stephane Rizvi MD I agree with the assessment and k dr plan of care. Signatures: Dispatcher [employer] EDFlavia Yang, RN RN Stephane Rizvi MD MD [facility] Angel Pedroza PA PA [facility] Sophie Garcia RN RN Leti Flor RN RN 2 Cynthia Cadena cc3 Corrections: (The following items were deleted from the chart) 01/09 19:40 18:47 Splint - Wrist ordered. [facility] cc3 19:41 19:08 01/09/2019 19:08 Discharged to Home. Impression: Sprain of unspecified part of cc3 wrist and hand. Condition is Stable. Forms are Work release form, Medication Reconciliation Form, Thank You Letter, Antibiotic Education, Prescription Opioid Use. Follow up: Dr. Sawyer Patrick; When: 2 - 3 days; Reason: Recheck today's complaints, Continuance of care, Re-evaluation by your physician. [facility]
--- NOTE | 2019-01-09 19:09 | ER ---
Nurse's Notes [facility] Name: Terry Akins Sr Age: 38 yrs Sex: Male : 1980 Arrival Date: 01/09/2019 Time: 17:44 Bed 6 Private MD: Diagnosis: Sprain of unspecified part of wrist and hand Presentation: 01/09 17:47 Presenting complaint: Patient states: right hand pain after punching a wall. Transition sv of care: patient was not received from another setting of care. Onset of symptoms was January 09, 2019. Initial Sepsis Screen: Does the patient meet any 2 criteria? No. Patient's initial sepsis screen is negative. Does the patient have a suspected source of infection? No. Patient's initial sepsis screen is negative. Care prior to arrival: None. 17:47 Method Of Arrival: Ambulatory sv 17:47 Acuity: SARITHA 4 sv 17:53 Risk Assessment: Do you want to hurt yourself or someone else?. tw2 Triage Assessment: 17:53 General: Appears in no apparent distress. Behavior is cooperative, appropriate for age. tw2 Injury Description: pt punched a wall. Historical: - Allergies: 17:49 No Known Allergies; sv - PMHx: 17:49 None; sv - PSHx: 17:49 Appendectomy; Hemorrhoidectomy; Ulinerve transplantation BUE; Carpal Tunnel Repair; sv Tendonitis left arm; - Immunization history:: Adult Immunizations. - Social history:: Smoking status: . - Ebola Screening: : Patient denies travel to an Ebola-affected area in the 21 days before illness onset. Screenin:51 Abuse screen: Denies threats or abuse. Nutritional screening: No deficits noted. tw2 Tuberculosis screening: No symptoms or risk factors identified. Fall Risk None identified. Assessment: 17:52 General: Appears in no apparent distress. Pain: Complains of pain in right hand. Neuro: tw2 Level of Consciousness is awake, alert, obeys commands, Oriented to person, place, time, situation. Cardiovascular: Patient's skin is warm and dry. Respiratory: Airway is patent Respiratory effort is even, unlabored, Respiratory pattern is regular, symmetrical. GI: No signs and/or symptoms were reported involving the gastrointestinal system. : No signs and/or symptoms were reported regarding the genitourinary system. EENT: No signs and/or symptoms were reported regarding the EENT system. Derm: No signs and/or symptoms reported regarding the dermatologic system. Musculoskeletal: Range of motion: intact in all extremities, Swelling present in right hand. 19:15 Reassessment: Patient appears in no apparent distress at this time. Patient and/or cc3 family updated on plan of care and expected duration. Pain level reassessed. Patient is alert, oriented x 3, equal unlabored respirations, skin warm/dry/pink. Received this male patient from morning shift BRYN Landeros as a case of right hand pain. No IV cannula in situ. 19:40 Reassessment: Patient appears in no apparent distress at this time. Patient and/or cc3 family updated on plan of care and expected duration. Pain level reassessed. Patient is alert, oriented x 3, equal unlabored respirations, skin warm/dry/pink. CLAY Pedroza discharged the patient home with prescription given. Patient refused for wrist splint and opted for haley wrap instead CLAY Pedroza informed. No IV cannula in situ. Patient left ER vitally stable and ambulatory. Patient denies pain at this time. Patient states feeling better. Patient states symptoms have improved. Vital Signs: 17:49 BP 155 / 95; Pulse 103; Resp 20; Temp 99; Pulse Ox 98% ; Weight 131.54 kg; Height 6 ft. sv 3 in. (190.50 cm); Pain 10/10; 19:20 BP 149 / 87; Pulse 98; Resp 18 S; Temp 98.9(O); Pulse Ox 99% on R/A; cc3 17:49 Body Mass Index 36.25 (131.54 kg, 190.50 cm) sv ED Course: 17:44 Patient arrived in ED. mr 17:48 Triage completed. sv 17:50 Arm band placed on. sv 17:50 Bed in low position. Call light in reach. tw2 17:51 Angel Pedroza PA is PHCP. [facility] 17:51 Stephane Rizvi MD is Attending Physician. m 17:51 Leti Flor RN is Primary Nurse. tw2 18:13 Hand Right 3 View XRAY In Process Unspecified. EDMS 19:02 Report given to BRYN Marie. tw2 19:08 Sawyer Patrick MD is Referral Physician. [facility] 19:40 No provider procedures requiring assistance completed. Patient did not have IV access cc3 during this emergency room visit. Administered Medications: 18:30 Drug: [place] 5 mg-325 mg 1 tabs Route: PO; tw2 19:15 Follow up: Response: No adverse reaction; Pain is unchanged, physician notified cc3 19:26 Drug: Ibuprofen 800 mg Route: PO; hb 19:40 Follow up: Response: No adverse reaction; Pain is decreased cc3 Outcome: 19:08 Discharge ordered by . latasha 19:40 Discharged to home ambulatory. cc3 19:40 Condition: stable 19:40 Discharge instructions given to patient, Instructed on discharge instructions, follow up and referral plans. medication usage, Demonstrated understanding of instructions, follow-up care, medications, Prescriptions given X 1. 19:41 Patient left the ED. cc3 Signatures: Dispatcher [employer] EDFlavia Yang RN RN sv Mickail, Joel, PA PA [facility] Ghislaine Reddy Sophie Garcia RN RN Leti Flor RN RN 2 Cynthia Cadena cc3
[2019-01-09] MEDS ORDERED: IBUPROFEN 400 MG TAB ONE (19:34)
== END 2019-01-09 19:41 | disposition home or self-care (01) ==
LOC: ER 17:43
DX: S63.91XA Sprain of unspecified part of right wrist and hand, initial encounter (principal); W22.09XA Striking against other stationary object, initial encounter; Y93.89 Activity, other specified; Y92.9 Unspecified place or not applicable
CPT/HCPCS: 99283

== ENCOUNTER 2019-04-12 12:59 | Emergency (ER) | payer OTHER ==
--- OUTSIDE RECORDS SUMMARY | 2019-04-12 13:03 | XMS REPORT | Summary of Care ---
:1980 Author Name Jennifer Guevara Address [facility] Unavailable , Care Team Providers Name Role Phone BENJA Mcfadden, ROBERT Unavailable Unavailable BIJOU N.P., JERNAE Unavailable Unavailable HINCKS DO [facility], SERJIO L Unavailable Unavailable BENJA LOJA [facility], POURSTEPHEN Unavailable Unavailable BIJOU HEAD OF ART, JERNAE F Unavailable Unavailable SY LOJA, LIANET Unavailable Unavailable HINCKS D.O., SERJIO Unavailable Unavailable TAMMY LOJA NE, VÍCTOR MAYS Unavailable Unavailable Unavailable Unavailable Unavailable Functional Status [...] ML Intramuscular Suspension on: 03-Jun-2018 Lot #: [id number] Family History Name Dates Details Family history [...] Details Planned Observations Planned Goals not documented Instructions Name Dates Details Instructions not documented [...] 02-Oct-2018 15:00 Encounter Diagnosis: Problem not documented Appointment; MICHAEL LICONA M.D. On: 13-Mar-2019 9:00 Encounter Diagnosis: Problem not documented
--- OUTSIDE RECORDS SUMMARY | 2019-04-12 13:03 | XMS REPORT | Clinical Summary ---
:1980 Author Organization [facility] Address [address] [place] [address] Care Team Providers Name Role Phone Asked, [...] MD Elevated CK Indra Farrell MD after 04/11/2018 Social History Tobacco Use Types Packs/Day Years [...] Vital Signs Vital Sign Reading Time Taken Comments Blood Pressure 146/83 05/26/2018 11:34 AM CDT [...] are in SPECTRAL COLOR DOPPLER the results (35900) section. EEG AWAKE/DROWSY LESS Routine 05/26/2018 8:50 [...] procedure are in the results section. after 04/11/2018 Results Echocardiogram complete w contrast and 3D [...] Organization Address City/State/Zipcode Phone Number [facility] [address] [place] [address] EEG (routine) (05/26/2018 8:50 AM CDT) Narrative Performed At Date of Service: May 26, 2018. [facility] DEPARTMENT OF PATHOLOGY AND Date of EEG [...] a diagnosis of epilepsy. Performing Organization Address [facility] Phone Number [facility] DEPARTMENT OF PATHOLOGY [address] [place] [address]. [place] [address] AND [employer] Estimated GFR (05/26/2018 5:15 AM CDT)Only the most recent of2 resultswithin the time period is included. [facility] Estimated GFR >=90 mL/min/1.73 [facility] DEPARTMENT Comment: m2 OF PATHOLOGY AND CatergoryUnitsInterpretation GENOMIC MEDICINE G1 >=90 Normal or high G2 60-89Mildly decreased N4c76-67Tbtykj to moderately decreased W9c74-33Jillwjhsvl to severely decreased G4 15-29Severely decreased G5 <15Kidney failure The eGFR was calculated using the Chronic Kidney Disease Epidemiology Collaboration (CKD-EPI) equation. Interpretation is based on recommendations of the National Kidney Foundation-Kidney Disease Outcomes Quality Initiative (NKF-KDOQI) published in 2014. Specimen Plasma specimen Performing Organization Address [facility] Phone Number [facility] DEPARTMENT OF PATHOLOGY [address] [place] [address]. [place] [address] AND [employer] [facility] Troponin (05/26/2018 5:15 AM CDT)Only the most recent of4 resultswithin the time period is included. Pathologist [facility] Troponin <0.30 0.00 - 0.30 [facility] DEPARTMENT OF Comment: ng/mL PATHOLOGY AND 0.11 - 1.49 ng/mlMay indicate increased risk of acute GENOMIC MEDICINE coronary syndrome. >=1.5 ng/mlConsistent with acute myocardial infarction. The diagnostic value of a single normal or non-diagnostic result is questionable.Serial samples at 2-6 hour intervals are required to rule out acute myocardial injury. Specimen Plasma specimen Performing Organization Address [facility] Phone Number [facility] DEPARTMENT OF PATHOLOGY [address] [place] [address] AND [facility] CBC with platelet and differential (05/26/2018 5:15 AM CDT)Only the most recent of2 resultswithin the time period is included. WBC 6.9 4.5 - 11.0 k/uL [facility] DEPARTMENT OF PATHOLOGY AND GENOMIC MEDICINE RBC 4.76 4.40 - 6.00 [facility] DEPARTMENT OF m/uL PATHOLOGY AND GENOMIC MEDICINE HGB 13.4 (L) 14.0 - 18.0 [facility] DEPARTMENT OF g/dL PATHOLOGY AND GENOMIC MEDICINE HCT 42.0 41.0 - 51.0 % [facility] DEPARTMENT OF PATHOLOGY AND GENOMIC MEDICINE MCV 88.2 82.0 - 100.0 fL [facility] DEPARTMENT OF PATHOLOGY AND GENOMIC MEDICINE MCH 28.2 27.0 - 34.0 pg [facility] DEPARTMENT OF PATHOLOGY AND GENOMIC MEDICINE MCHC 31.9 31.0 - 37.0 [facility] DEPARTMENT OF g/dL PATHOLOGY AND GENOMIC MEDICINE RDW - SD 47.4 37.0 - 55.0 fL [facility] DEPARTMENT OF PATHOLOGY AND GENOMIC MEDICINE MPV 11.2 (H) 6.9 - 11.0 fL [facility] DEPARTMENT OF PATHOLOGY AND GENOMIC MEDICINE Platelet count 160 150 - 400 K/uL [facility] DEPARTMENT OF PATHOLOGY AND GENOMIC MEDICINE Nucleated RBC 0.00 /100 WBC [facility] DEPARTMENT OF PATHOLOGY AND GENOMIC MEDICINE Neutrophils 42.7 39.0 - 69.0 % [facility] DEPARTMENT OF PATHOLOGY AND GENOMIC MEDICINE Lymphocytes 44.9 25.0 - 45.0 % [facility] DEPARTMENT OF PATHOLOGY AND GENOMIC MEDICINE Monocytes 6.7 0.0 - 10.0 % [facility] DEPARTMENT OF PATHOLOGY AND GENOMIC MEDICINE Eosinophils 5.2 (H) 0.0 - 5.0 % [facility] DEPARTMENT OF PATHOLOGY AND GENOMIC MEDICINE Basophils 0.4 0.0 - 1.0 % [facility] DEPARTMENT OF PATHOLOGY AND GENOMIC MEDICINE Immature granulocytes 0.1 0.0 - 1.0 % [facility] DEPARTMENT OF PATHOLOGY AND GENOMIC MEDICINE Specimen Blood Performing Organization Address City/[facility]/Zipcode Phone Number [facility] DEPARTMENT OF PATHOLOGY [id number] [place] [address] AND [facility] Magnesium level (05/26/2018 5:15 AM CDT) Magnesium 1.8 1.6 - 2.6 mg/dL [facility] DEPARTMENT OF PATHOLOGY AND GENOMIC MEDICINE Specimen Plasma specimen Performing Organization Address City/[facility] Phone Number [facility] DEPARTMENT OF PATHOLOGY [address] [place] [address] AND [facility] Creatine kinase, total (CPK) (05/26/2018 5:15 AM CDT)Only the most recent of4 resultswithin the time period is included. Creatine kinase 828 (H) 39 - 308 U/L [facility] DEPARTMENT OF PATHOLOGY [facility] Specimen Plasma specimen Performing Organization Address [facility] Phone Number [facility] DEPARTMENT OF PATHOLOGY [address] [place] [address] AND [facility] Basic metabolic panel (05/26/2018 5:15 AM CDT) Sodium 142 135 - 148 mEq/L [facility] DEPARTMENT OF PATHOLOGY AND GENOMIC MEDICINE Potassium 4.3 3.5 - 5.0 mEq/L [facility] DEPARTMENT OF PATHOLOGY AND GENOMIC MEDICINE Chloride 111 98 - 112 mEq/L [facility] DEPARTMENT OF PATHOLOGY AND GENOMIC MEDICINE CO2 20 (L) 24 - 31 mEq/L [facility] DEPARTMENT OF PATHOLOGY AND GENOMIC MEDICINE Anion gap 11@ANIO 7 - 15 mEq/L [facility] DEPARTMENT OF PATHOLOGY AND GENOMIC MEDICINE BUN 14 6 - 20 mg/dL [facility] DEPARTMENT OF PATHOLOGY AND GENOMIC MEDICINE Creatinine 1.13 0.70 - 1.20 mg/dL [facility] DEPARTMENT OF PATHOLOGY AND GENOMIC MEDICINE Glucose 94 65 - 99 mg/dL [facility] DEPARTMENT OF PATHOLOGY AND GENOMIC MEDICINE Calcium 8.5 8.3 - 10.2 mg/dL [facility] DEPARTMENT OF PATHOLOGY AND [employer] MEDICINE Specimen Plasma specimen Performing Organization Address [facility] Phone Number [facility] DEPARTMENT OF PATHOLOGY [address] [place] [address] AND [facility] MRI Brain Wo Contrast (05/25/2018 7:42 PM CDT) Specimen Narrative Performed At This [facility] has an attachment that is not available. [...] pneumatized. IMPRESSION: No acute intracranial abnormality identified. [facility]-[id number] Procedure Note Interface, Radiology Results Incoming - [...] pneumatized. IMPRESSION: No acute intracranial abnormality identified. [facility]-[id number] Performing Organization Address [facility]/Zipcode Phone Number [facility] [address] [place] [address] Thyroid stimulating hormone (05/25/2018 5:30 PM CDT) TSH 1.46 0.27 - 4.20 uIU/mL [facility] DEPARTMENT OF PATHOLOGY AND GENOMIC MEDICINE Specimen Plasma specimen Performing Organization Address [facility] Phone Number [facility] DEPARTMENT OF PATHOLOGY [id number] [place] [address] AND [facility] T4, free (05/25/2018 5:30 PM CDT) T4, free 1.3 0.9 - 1.7 ng/dL [facility] DEPARTMENT OF PATHOLOGY AND GENOMIC MEDICINE Specimen Plasma specimen Performing Organization Address [facility] Phone Number [facility] DEPARTMENT OF PATHOLOGY [address] [place] [address] AND [facility] Hemoglobin A1c (05/25/2018 5:30 PM CDT) Hemoglobin A1C 5.6 4.0 - 6.0 % [facility] DEPARTMENT OF Comment: PATHOLOGY AND GENOMIC MEDICINE Less than 6% - Goal of therapy for Type II Diabetes Less than 7%-Goal of therapy for Type I Diabetes Less than 8%-Acceptable control for Type I or Type II Diabetes Greater than 8%-Unacceptable control; action indicated. (ADA94) Specimen Blood Performing Organization Address City/State/Zipcode Phone Number [facility] DEPARTMENT OF PATHOLOGY [address] [place] [address] AND [facility] MEDICINE Alcohol level, blood (05/25/2018 5:30 PM CDT) Alcohol None Detected mg/dL [facility] DEPARTMENT OF Comment: PATHOLOGY AND Normal None Detected GENOMIC MEDICINE Legal Intoxication in [place]80 mg/dL (0.08%) - Whole Blood Toxic Hemlxkhhqxccw538 mg/dL (0.2%) Potentially Jzmgn652 - 500 mg/dL (0.35 - 0.5%) Alcohol percent None Detected % [facility] DEPARTMENT OF PATHOLOGY AND GENOMIC MEDICINE Specimen Plasma specimen Performing Organization Address City/[facility]/Zipcode Phone Number [facility] DEPARTMENT OF PATHOLOGY [address] [place] [address] AND [facility] Salicylate level (05/25/2018 5:30 PM CDT) Salicylate <0.4 (L) 3.0 - 30.0 mg/dL [facility] DEPARTMENT OF PATHOLOGY AND GENOMIC MEDICINE Specimen Plasma specimen Performing Organization Address City/[facility] Phone Number [facility] DEPARTMENT OF PATHOLOGY [address] [place] [address] AND [facility] Lipid panel (05/25/2018 5:30 PM CDT) Cholesterol 204 (H) 0 - 199 [facility] DEPARTMENT mg/dL OF PATHOLOGY AND GENOMIC MEDICINE Triglycerides 51 0 - 149 [facility] DEPARTMENT mg/dL OF PATHOLOGY AND GENOMIC MEDICINE HDL cholesterol 63 40 - 99,999 [facility] DEPARTMENT mg/dL OF PATHOLOGY AND GENOMIC MEDICINE LDL cholesterol 140 (H) 0 - 99 [facility] DEPARTMENT mg/dL OF PATHOLOGY AND GENOMIC MEDICINE Lipid panel See below [facility] DEPARTMENT interpretation Comment: OF PATHOLOGY AND Total Cholesterol (mg/dL) GENOMIC MEDICINE <200 Desirable 135-136Qujljdmqfg-oxat >=240High Triglycerides (mg/dL) <150 Normal 792-781Oenqvnjqvj-gpay 200-499High >=500Very high HDL Cholesterol (mg/dL) <40Low (male) <50Low (female) LDL Cholesterol (mg/dL) <100 Optimal 100-129Near or above optimal [phone]-ivdy 160-189High >=190Very high Risk Catergories that modify [...] specimen Performing Organization Address City/State/Zipcode Phone Number [facility] DEPARTMENT OF PATHOLOGY [address] [place] [address] AND [employer] MEDICINE Renal (05/25/2018 4:56 PM CDT) Specimen Narrative Performed At [facility] CLINICAL INDICATION:Renal failureacute (kidney injury) COMPARISON:None. [...] participate in the care of your patient. [facility]-[id number] Procedure Note Interface, Radiology Results Incoming - [...] participate in the care of your patient. [facility]-[id number] Performing Organization Address [facility] Phone Number [facility] [address] [facility] [place] [address] Pv carotid duplex (05/25/2018 4:55 PM CDT) Specimen Narrative Performed At [facility] Exam: Bilateral carotid artery Doppler History: syncope [...] arteries are patent and demonstrate antegrade flow. [id number] Procedure Note Interface, Radiology Results Incoming - [...] arteries are patent and demonstrate antegrade flow. [id number] Performing Organization Address [facility] Phone Number [facility] [address] [place] [address] Urinalysis screen and microscopy, with reflex to culture (05/25/2018 11:44 AM CDT) Specimen site Clean catch [facility] DEPARTMENT OF PATHOLOGY AND GENOMIC MEDICINE Color, UA Yellow [facility] DEPARTMENT OF PATHOLOGY AND GENOMIC MEDICINE Appearance, UA Clear [facility] DEPARTMENT OF PATHOLOGY AND GENOMIC MEDICINE Specific gravity, UA 1.020 1.001 - 1.030 [facility] DEPARTMENT OF PATHOLOGY AND GENOMIC MEDICINE pH, UA 6.0 5.0 - 9.0 [facility] DEPARTMENT OF PATHOLOGY AND GENOMIC MEDICINE Protein, UA Negative Negative [facility] DEPARTMENT OF PATHOLOGY AND GENOMIC MEDICINE Glucose, UA Negative Negative [facility] DEPARTMENT OF PATHOLOGY AND GENOMIC MEDICINE Ketones, UA Negative Negative [facility] DEPARTMENT OF PATHOLOGY AND GENOMIC MEDICINE Bilirubin, UA Negative Negative [facility] DEPARTMENT OF PATHOLOGY AND GENOMIC MEDICINE Blood, UA Negative Negative [facility] DEPARTMENT OF PATHOLOGY AND GENOMIC MEDICINE Nitrite, UA Negative Negative [facility] DEPARTMENT OF PATHOLOGY AND GENOMIC MEDICINE Urobilinogen, UA <2.0 <2.0 E.U./dL [facility] DEPARTMENT OF PATHOLOGY AND GENOMIC MEDICINE Leukocyte esterase, Negative Negative [facility] DEPARTMENT OF UA PATHOLOGY AND GENOMIC MEDICINE Epithelial cells, UA <1 /HPF [facility] DEPARTMENT OF PATHOLOGY AND GENOMIC MEDICINE Round epithelial <1 0 - 5 /HPF [facility] DEPARTMENT OF cells, UA PATHOLOGY AND GENOMIC MEDICINE WBC, UA 7 (H) 0 - 1 /HPF [facility] DEPARTMENT OF PATHOLOGY AND GENOMIC MEDICINE RBC, UA 2 0 - 5 /HPF [facility] DEPARTMENT OF PATHOLOGY AND GENOMIC MEDICINE Bacteria, UA None seen None seen [facility] DEPARTMENT OF PATHOLOGY AND GENOMIC MEDICINE Yeast, UA None seen [facility] DEPARTMENT OF PATHOLOGY AND GENOMIC MEDICINE Yeast with None seen [facility] DEPARTMENT OF pseudohyphae, UA PATHOLOGY AND GENOMIC MEDICINE Specimen Urine Performing Organization Address City/State/Zipcode Phone Number [facility] DEPARTMENT OF PATHOLOGY [address] [place] [address] AND [facility] Urine drugs of abuse screen (05/25/2018 11:44 AM CDT) Pathologist [facility] Amphetamine screen, Negative [facility] DEPARTMENT urine OF PATHOLOGY AND GENOMIC MEDICINE Barbiturate screen, Negative [facility] DEPARTMENT urine OF PATHOLOGY AND GENOMIC MEDICINE Benzodiazepine Negative [facility] DEPARTMENT screen, urine OF PATHOLOGY AND GENOMIC MEDICINE Cannabinoid screen, Positive (A) [facility] DEPARTMENT urine OF PATHOLOGY AND GENOMIC MEDICINE Cocaine screen, urine Negative [facility] DEPARTMENT OF PATHOLOGY AND GENOMIC MEDICINE Methadone metabolite Negative [facility] DEPARTMENT (EDDP), urine OF PATHOLOGY AND GENOMIC MEDICINE Opiates screen, urine Negative [facility] DEPARTMENT OF PATHOLOGY AND GENOMIC MEDICINE Phencyclidine screen, Positive (A) [facility] DEPARTMENT urine OF PATHOLOGY AND [facility] MEDICINE Tricyclic screen, Negative [facility] DEPARTMENT urine Comment: OF PATHOLOGY AND Drug screen minimum concentration of detectability GENOMIC MEDICINE Cijuocqradjy4283 ng/mL Barbiturates 200 ng/mL Uunsyltbcgkohml264 ng/mL Tvsqole726 ng/mL Iwktfpsex525 ng/mL Sxibtja487 ng/mL Phencyclidine 25 ng/mL Frbfkbqdeiqn04 ng/mL Zbylxzqbjv7504 ng/mL Negative test results indicates presumptive evidence of lack of clinically significant drug concentration in this urine specimen. Positive test results are presumptive evidence of clinically significant drug concentration in this urine specimen. Testing performed for medical purposes only. Specimen Urine Performing Organization Address City/[facility]/Zipcode Phone Number [facility] DEPARTMENT OF PATHOLOGY [address] [place] [address] AND [facility] MEDICINE Gram stain (05/25/2018 11:24 AM CDT) Gram stain result No WBC's or organisms seen. [facility] DEPARTMENT OF Comment: PATHOLOGY AND Specimen Information GENOMIC MEDICINE Specimen Source: Urine Specimen Site: Clean catch Specimen Urine Performing Organization Address City/[facility] Phone Number [facility] DEPARTMENT OF PATHOLOGY AND [address] [place] [address] [facility] Urine culture (05/25/2018 11:24 AM CDT) Urine culture Mixed Gram positive yoselin [facility] DEPARTMENT OF isolate 10-2 cfu/ml PATHOLOGY AND (A) GENOMIC MEDICINE Comment: Specimen Information Specimen Source: Urine Specimen Site: Clean catch Specimen Urine Performing Organization Address [facility] Phone Number [facility] DEPARTMENT OF PATHOLOGY AND [address] [place], [place] [phone] [facility] CT Head Wo Contrast (05/25/2018 10:05 AM [...] head CT with no acute intracranial abnormality. [facility]-[id number] Procedure Note Hm Interface, Radiology Results Incoming [...] head CT with no acute intracranial abnormality. [facility]-[id number] Performing Organization Address [facility] Phone Number [facility] [address] [place] [address] ECG 12 lead (05/25/2018 9:48 AM CDT) [facility] Ventricular rate 73 [facility] Atrial rate 73 [facility] SC interval 228 [facility] QRSD interval 84 [...] 05/26/2018 5:47:13 AM Specimen Performing Organization Address [facility] Phone Number [facility] MUSE [address] [place] [address] ECG ED Preliminary Interpretation - NOT AN ORDER (05/25/2018 9:42 AM CDT) Narrative Performed At Brennan Cano NP 05/25/20187:17 PM ECG ED Preliminary Interpretation - Not an Order Performed by: BRENNAN CANO Authorized by: MARZENA CALIXTO ECG reviewed by ED Physician in the absence of a co supervisor grounds and landscape: yes Interpretation: Interpretation: abnormal Rate: ECG rate:73 ECG rate assessment: normal Rhythm: Rhythm: sinus rhythm and A-V block Ectopy: Ectopy: none QRS: QRS axis:Normal (84) QRS intervals:Normal Conduction: Conduction: abnormal Abnormal conduction: 1st degree B natriuretic peptide (05/25/2018 9:40 AM CDT) BNP 44 0 - 100 pg/mL [facility] DEPARTMENT OF PATHOLOGY AND GENOMIC MEDICINE Specimen Blood Performing Organization Address City/[facility] Phone Number [facility] DEPARTMENT OF PATHOLOGY [address] [place] [address] AND [facility] Lipase level (05/25/2018 9:40 AM CDT) Lipase 16 13 - 60 U/L [facility] DEPARTMENT OF PATHOLOGY AND GENOMIC MEDICINE Specimen Plasma specimen Performing Organization Address City/[facility] Phone Number [facility] DEPARTMENT OF PATHOLOGY [address] [place] [address] AND [facility] Comprehensive metabolic panel (05/25/2018 9:40 AM CDT) Sodium 140 135 - 148 mEq/L [facility] DEPARTMENT OF PATHOLOGY AND GENOMIC MEDICINE Potassium 4.0 3.5 - 5.0 mEq/L [facility] DEPARTMENT OF PATHOLOGY AND GENOMIC MEDICINE Chloride 104 98 - 112 mEq/L [facility] DEPARTMENT OF PATHOLOGY AND GENOMIC MEDICINE CO2 25 24 - 31 mEq/L [facility] DEPARTMENT OF PATHOLOGY AND GENOMIC MEDICINE Anion gap 11@ANIO 7 - 15 mEq/L [facility] DEPARTMENT OF PATHOLOGY AND GENOMIC MEDICINE BUN 14 6 - 20 mg/dL [facility] DEPARTMENT OF PATHOLOGY AND GENOMIC MEDICINE Creatinine 1.25 (H) 0.70 - 1.20 [facility] DEPARTMENT OF mg/dL PATHOLOGY AND GENOMIC MEDICINE Glucose 103 (H) 65 - 99 mg/dL [facility] DEPARTMENT OF PATHOLOGY AND GENOMIC MEDICINE Calcium 9.9 8.3 - 10.2 [facility] DEPARTMENT OF mg/dL PATHOLOGY AND GENOMIC MEDICINE Protein 7.5 6.3 - 8.3 g/dL [facility] DEPARTMENT OF PATHOLOGY AND GENOMIC MEDICINE Albumin 4.4 3.5 - 5.0 g/dL [facility] DEPARTMENT OF PATHOLOGY AND GENOMIC MEDICINE A/G ratio 1.4 0.7 - 3.8 [facility] DEPARTMENT OF PATHOLOGY AND GENOMIC MEDICINE Alkaline phosphatase 82 40 - 129 U/L [facility] DEPARTMENT OF PATHOLOGY AND GENOMIC MEDICINE AST 35 10 - 50 U/L [facility] DEPARTMENT OF PATHOLOGY AND GENOMIC MEDICINE ALT 30 5 - 50 U/L [facility] DEPARTMENT OF PATHOLOGY AND GENOMIC MEDICINE Total bilirubin 0.8 0.2 - 1.2 mg/dL [facility] DEPARTMENT OF PATHOLOGY AND GENOMIC MEDICINE Specimen Plasma specimen Performing Organization Address City/State/Zipcode Phone Number [facility] DEPARTMENT OF PATHOLOGY [id number] [place] [address] AND GENOMIC MEDICINE POC glucose (05/25/2018 9:33 AM CDT) POC glucose 118 (H) 65 - 99 mg/dL [facility] DEPARTMENT OF Comment: PATHOLOGY AND Meter ID: [id number] GENOMIC MEDICINE Electric Organ Inspector And Repairer: Bryan Tafoya Specimen Performing Organization Address City/State/Zipcode Phone Number [facility] DEPARTMENT OF PATHOLOGY [address] [place] [address] AND GENOMIC MEDICINE after 04/11/2018 Advance Directives For more information, please contact: [phone] 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
[2019-04-12] MEDS ORDERED: NA CHLORIDE 0.9% 1,000 ML ONE (13:52)
[2019-04-12] MEDS ORDERED: FAMOTIDINE 20 MG/2 ML VIAL IV ONE (13:52)
[2019-04-12] MEDS ORDERED: ONDANSETRON 4 MG/2 ML VIAL ONE ×2 (13:52→15:23)
[2019-04-12 14:09] LABS: Absolute Lymphocytes (CBC) 1.1 K/uL (0.7-4.9); Basophils % 0.2 % (0-1.3); Hematocrit 48.2 % (39.6-49.0); MPV 9.4 fL (7.6-11.3); RBC Red Blood Cell Count 5.51 M/uL (4.33-5.43)
[2019-04-12 14:14] LABS: Protime INR 0.95
[2019-04-12 14:22] LABS: Urine Blood NEGATIVE (NEG); Urine Glucose NEGATIVE (NEG); Urine Protein 2+ (NEG); Urine pH 5.5 (5.0-7.0)
[2019-04-12 14:28] LABS: ALT/SGPT 24 U/L (12-78); AST/SGOT 14 U/L (15-37); Albumin 3.9 g/dL (3.4-5.0); Alkaline Phosphatase 96 U/L (45-117); BUN Blood Urea Nitrogen 13 mg/dL (7-18); Bicarbonate 27 mmol/L (21-32); Bilirubin Direct 0.2 mg/dL (0-0.2); Bilirubin Total 0.7 mg/dL (0.2-1.0); Glucose Level 106 mg/dL (74-106); Lipase 68 U/L (73-393); Magnesium 1.9 mg/dL (1.8-2.4); NT PRO-BNP 57 pg/mL (<125); Potassium 3.9 mmol/L (3.5-5.1); Protein, Total 7.2 g/dL (6.4-8.2); Sodium Level 143 mmol/L (136-145); Troponin (Emerg Dept Use Only) < 0.02 ng/mL (0.0-0.045)
[2019-04-12] MEDS ORDERED: MORPHINE 4 MG/ML SYR ONE (15:23)
--- NOTE | 2019-04-12 16:33 | RAD REPORT ---
EXAM DESCRIPTION: CT - Head Brain Wo Cont - 04/12/2019 4:09 pm CLINICAL HISTORY: Headache COMPARISON: None. TECHNIQUE: Computed axial tomography of the head was obtained. IV contrast was not requested. All CT scans are performed using dose optimization technique as appropriate and may include automated exposure control or mA/KV adjustment according to patient size. FINDINGS: An intracranial bleed is not seen . The ventricles are normal in caliber. No extra-axial fluid collection is noted. Fluid within the sinuses/ mastoids is not seen. Mild to moderate mucoperiosteal thickening involves t he right maxillary sinus indicative of chronic sinusitis IMPRESSION: No acute intracranial abnormality is seen. If patient's symptoms persist MRI of the bra in would be recommended.
--- NOTE | 2019-04-12 16:38 | RAD REPORT ---
EXAM DESCRIPTION: CT - Abdomen Pelvis W Contrast - 04/12/2019 4:10 pm CLINICAL HISTORY: Abdominal pain with vomiting COMPARISON: none. TECHNIQUE: Computed axial tomography of the abdomen pelvis was obtained. 100 cc Isovue-300 was admin istered intravenously. Oral contrast was given All CT scans are performed using dose optimization technique as appropriate and may include automated exposure control or mA/KV adjustment according to patient size. FINDINGS: The liver, spleen, pancreas, adrenal and left kidney appear unremarkable. 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 Wall of the rectum appears mildly thickened IMPRESSION: Apparent mild thickening of the wall of the rectum may be secondary to incomplete disten tion or proctitis
--- NOTE | 2019-04-12 16:40 | RAD REPORT ---
EXAM DESCRIPTION: Audie Single View04/12/2019 2:42 pm CLINICAL HISTORY: Chest pain COMPARISON: none FINDINGS: 1 centimeter nodular opacity overlies the right lung base. Left lung appears clear. The heart is normal size IMPRESSION: 1 centimeter nodular opacity which overlies the right lung base probably represents a ni pple shadow, less likely pulmonary nodule. Follow-up chest x-ray in 3 months with right nipple marker and oblique views recommended
--- NOTE | 2019-04-12 16:43 | ER ---
Nurse's Notes [facility] Name: Terry Akins Sr Age: 38 yrs Sex: Male : 1980 Arrival Date: 04/12/2019 Time: 13:01 Bed 5 Private MD: Diagnosis: Vomiting;Headache;Essential (primary) hypertension;Abdominal tenderness-rectal wall thickening, proctitis Presentation: 04/12 13:02 Presenting complaint: EMS states: N/V/D x 2 days. Pt reports vomit smells and looks hb like feces. Transition of care: patient was not received from another setting of care. Onset of symptoms was March 11, 2019. Risk Assessment: Do you want to hurt yourself or someone else? Patient reports no desire to harm self or others. Initial Sepsis Screen: Does the patient meet any 2 criteria? No. Patient's initial sepsis screen is negative. Does the patient have a suspected source of infection? No. Patient's initial sepsis screen is negative. Care prior to arrival: IV initiated. 22 GA, in the right antecubital area. 13:02 Method Of Arrival: EMS: [facility] 13:02 Acuity: SARITHA 3 hb Triage Assessment: 13:05 General: Appears in no apparent distress. uncomfortable, Behavior is cooperative, bp appropriate for age, anxious. Pain: Complains of pain in back. EENT: No deficits noted. Neuro: No deficits noted. Cardiovascular: No deficits noted. Respiratory: No deficits noted. GI: Reports nausea, vomiting. : No signs and/or symptoms were reported regarding the genitourinary system. Derm: No deficits noted. Musculoskeletal: No deficits noted. Historical: - Allergies: 13:04 No Known Allergies; hb - PMHx: 13:04 GERD; hb 13:04 Hypertension; hb - PSHx: 13:04 Appendectomy; Hemorrhoidectomy; Ulinerve transplantation BUE; Carpal Tunnel Repair; hb Tendonitis left arm; - Immunization history:: Adult Immunizations up to date. - Social history:: Smoking status: Patient/guardian denies using tobacco. - Ebola Screening: : No symptoms or risks identified at this time. Screenin:00 Abuse screen: Denies threats or abuse. Denies injuries from another. Nutritional bp screening: No deficits noted. Tuberculosis screening: No symptoms or risk factors identified. Fall Risk None identified. Assessment: 13:05 General: SEE TRIAGE NOTE. GI: Abdomen is non-distended. bp 14:00 Reassessment: PT DRINKING PO CONTRAST. bp 15:00 Reassessment: PO CONTRAST COMPLETED, CT NOTIFIED. bp 16:17 Reassessment: PT RETURNED FROM CT. bp 16:40 Reassessment: ALL CURRENT ORDERS COMPLETED, RESULTS PENDING. bp 17:00 Reassessment: D/C ON HOLD FOR IVF AND ABX. bp 17:42 Reassessment: PT D/C HOME AMBULATORY WITH FAMILY, DX WITH PROCTITIS. bp Vital Signs: 13:03 BP 140 / 80; Pulse 75; Resp 16; Temp 98.3; Pulse Ox 97% on R/A; Weight 129.27 kg; hb Height 6 ft. 3 in. (190.50 cm); Pain 9/10; 15:10 BP 151 / 76; Pulse 84; Resp 16; Pulse Ox 97% ; bp 16:40 BP 129 / 97; Pulse 52; Resp 16; Pulse Ox 98% ; bp 17:43 BP 131 / 87; Pulse 67; Resp 17; Temp 98.5; Pulse Ox 97% ; bp 13:03 Body Mass Index 35.62 (129.27 kg, 190.50 cm) hb ED Course: 13:01 Patient arrived in ED. hb 13:03 Triage completed. hb 13:03 Arm band placed on. hb 13:11 Milind Pierce, RN is Primary Nurse. bp 13:39 Talon Whitt MD is Attending Physician. sin 14:00 Patient has correct armband on for positive identification. Bed in low position. Call bp light in reach. Side rails up X2. 14:00 Maintain EMS IV. Dressing intact. Good blood return noted. Site clean \T\ dry. Gauge \T\ bp site: 20 GAUGE LEFT AC. 14:44 XRAY Chest (1 view) In Process Unspecified. EDMS 15:30 Inserted saline lock: 20 gauge in right antecubital area, using aseptic technique. IV bp discontinued. 16:10 CT completed. Patient tolerated procedure well. Patient moved back from CT. mw3 16:10 CT Abd/Pelvis - PO and IV Contrast In Process Unspecified. EDMS 16:10 CT Head Brain wo Cont In Process Unspecified. EDMS 16:41 Dirk Patel MD is Referral Physician. sin 16:44 Rehana Lieberman MD is Referral Physician. sin 17:43 No provider procedures requiring assistance completed. IV discontinued, intact, bp bleeding controlled, No redness/swelling at site. Pressure dressing applied. Administered Medications: 14:00 Drug: NS 0.9% 1000 ml Route: IV; Rate: 1 bolus; Site: left antecubital; bp 15:08 Follow up: IV Status: Completed infusion; IV Intake: 1000ml bp 14:00 Drug: Zofran 4 mg Route: IVP; Site: left antecubital; bp 15:08 Follow up: Response: No adverse reaction bp 14:00 Drug: Pepcid 20 mg Route: IVP; Site: left antecubital; bp 15:07 Follow up: Response: No adverse reaction bp 15:30 Drug: morphine 4 mg Route: IVP; Site: right antecubital; bp 16:41 Follow up: Response: No adverse reaction; Pain is decreased bp 15:30 Drug: Zofran 4 mg Route: IVP; Site: right antecubital; bp 16:41 Follow up: Response: No adverse reaction bp 16:59 Drug: Cipro 500 mg Route: PO; bp 17:00 Follow up: Response: No adverse reaction bp 16:59 Drug: Flagyl 500 mg Volume: 100 ml; Route: IVPB; Rate: 200 ml/hr; Infused Over: 30 bp mins; Site: right antecubital; 16:59 Follow up: IV Status: Completed infusion bp 17:30 Drug: LoMOTIL 1 tabs Route: PO; bp 17:32 Follow up: Response: Medication administered at discharge. bp Intake: 15:08 IV: 1000ml; Total: 1000ml. bp Outcome: 16:42 Discharge ordered by . sin 17:43 Discharged to home ambulatory, with family. bp 17:43 Condition: stable 17:43 Discharge instructions given to patient, Instructed on discharge instructions, follow up and referral plans. medication usage, Demonstrated understanding of instructions, follow-up care, medications, Prescriptions given X 4. 17:44 Patient left the ED. bp Signatures: Dispatcher [employer] EDCA Talon Whitt MD MD cha Baxter, Heather, RN RN Milind White RN RN bp Cinthia Cody mw3
--- NOTE | 2019-04-12 16:44 | EDPHYS ---
Physician Documentation [facility] Name: Terry Akins Sr Age: 38 yrs Sex: Male : 1980 Arrival Date: 04/12/2019 Time: 13:01 Bed 5 Private MD: ED Physician Talon Whitt HPI: 04/12 15:27 This 38 yrs old Black Male presents to ER via EMS with complaints of sin Nausea/Vomiting/Diarrhea. Historical: - Allergies: 13:04 No Known Allergies; hb - PMHx: 13:04 GERD; hb 13:04 Hypertension; hb - PSHx: 13:04 Appendectomy; Hemorrhoidectomy; Ulinerve transplantation BUE; Carpal Tunnel Repair; hb Tendonitis left arm; - Immunization history:: Adult Immunizations up to date. - Social history:: Smoking status: Patient/guardian denies using tobacco. - Ebola Screening: : No symptoms or risks identified at this time. ROS: 15:31 Constitutional: Negative for fever, chills, and weight loss, Eyes: Negative for injury, sin pain, redness, and discharge, ENT: Negative for injury, pain, and discharge, Neck: Negative for injury, pain, and swelling, Cardiovascular: Negative for chest pain, palpitations, and edema, Respiratory: Negative for shortness of breath, cough, wheezing, and pleuritic chest pain, Back: Negative for injury and pain, : Negative for injury, bleeding, discharge, and swelling, MS/Extremity: Negative for injury and deformity, Skin: Negative for injury, rash, and discoloration, Psych: Negative for depression, anxiety, suicide ideation, homicidal ideation, and hallucinations, Allergy/Immunology: Negative for hives, rash, and allergies, Endocrine: Negative for neck swelling, polydipsia, polyuria, polyphagia, and marked weight changes, Hematologic/Lymphatic: Negative for swollen nodes, abnormal bleeding, and unusual bruising. 15:31 Neuro: Positive for headache. Exam: 15:31 Constitutional: This is a well developed, well nourished patient who is awake, alert, sin and in no acute distress. Head/Face: Normocephalic, atraumatic. Eyes: Pupils equal round and reactive to light, extra-ocular motions intact. Lids and lashes normal. Conjunctiva and sclera are non-icteric and not injected. Cornea within normal limits. Periorbital areas with no swelling, redness, or edema. ENT: Nares patent. No nasal discharge, no septal abnormalities noted. Tympanic membranes are normal and external auditory canals are clear. Oropharynx with no redness, swelling, or masses, exudates, or evidence of obstruction, uvula midline. Mucous membranes moist. Neck: Trachea midline, no thyromegaly or masses palpated, and no cervical lymphadenopathy. Supple, full range of motion without nuchal rigidity, or vertebral point tenderness. No Meningismus. Chest/axilla: Normal chest wall appearance and motion. Nontender with no deformity. No lesions are appreciated. Cardiovascular: Regular rate and rhythm with a normal S1 and S2. No gallops, murmurs, or rubs. Normal PMI, no JVD. No pulse deficits. Respiratory: Lungs have equal breath sounds bilaterally, clear to auscultation and percussion. No rales, rhonchi or wheezes noted. No increased work of breathing, no retractions or nasal flaring. Abdomen/GI: Soft, non-tender, with normal bowel sounds. No distension or tympany. No guarding or rebound. No evidence of tenderness throughout. Back: No spinal tenderness. No costovertebral tenderness. Full range of motion. Male : Normal genitalia with no discharge or lesions. Skin: Warm, dry with normal turgor. Normal color with no rashes, no lesions, and no evidence of cellulitis. MS/ Extremity: Pulses equal, no cyanosis. Neurovascular intact. Full, normal range of motion. Neuro: Awake and alert, GCS 15, oriented to person, place, time, and situation. Cranial nerves II-XII grossly intact. Motor strength 5/5 in all extremities. Sensory grossly intact. Cerebellar exam normal. Normal gait. Psych: Awake, alert, with orientation to person, place and time. Behavior, mood, and affect are within normal limits. Vital Signs: 13:03 BP 140 / 80; Pulse 75; Resp 16; Temp 98.3; Pulse Ox 97% on R/A; Weight 129.27 kg; hb Height 6 ft. 3 in. (190.50 cm); Pain 9/10; 15:10 BP 151 / 76; Pulse 84; Resp 16; Pulse Ox 97% ; bp 16:40 BP 129 / 97; Pulse 52; Resp 16; Pulse Ox 98% ; bp 17:43 BP 131 / 87; Pulse 67; Resp 17; Temp 98.5; Pulse Ox 97% ; bp 13:03 Body Mass Index 35.62 (129.27 kg, 190.50 cm) hb MDM: 13:39 Patient medically screened. [facility] 15:32 Data reviewed: vital signs, nurses notes, lab test result(s), EKG, radiologic studies, [facility] CT scan, plain films. 04/12 13:47 Order name: Basic Metabolic Panel; Complete Time: 15:02 [facility] 04/12 13:47 Order name: CBC with Diff; Complete Time: 15:02 [facility] 04/12 13:47 Order name: LFT's; Complete Time: 15:02 [facility] 04/12 13:47 Order name: Magnesium; Complete Time: 15:02 [facility] 04/12 13:47 Order name: NT PRO-BNP; Complete Time: 15:02 [facility] 04/12 13:47 Order name: PT-INR; Complete Time: 15:02 [facility] 04/12 13:47 Order name: Troponin (emerg Dept Use Only); Complete Time: 15:02 [facility] 04/12 13:47 Order name: XRAY Chest (1 view) [facility] 04/12 13:47 Order name: Lipase; Complete Time: 15:02 [facility] 04/12 13:47 Order name: CT Abd/Pelvis - PO and IV Contrast [facility] 04/12 14:04 Order name: Urine Dipstick--Ancillary (enter results); Complete Time: 15:02 04/12 15:27 Order name: CT Head Brain wo Cont; Complete Time: 16:37 [facility] 04/12 13:47 Order name: EKG; Complete Time: 13:48 [facility] 04/12 13:47 Order name: Cardiac monitoring; Complete Time: 13:49 [facility] 04/12 13:47 Order name: EKG - Nurse/Tech; Complete Time: 14:15 [facility] 04/12 13:47 Order name: IV Saline Lock; Complete Time: 14:09 [facility] 04/12 13:47 Order name: Labs collected and sent; Complete Time: 14:10 [facility] 04/12 13:47 Order name: O2 Per Protocol; Complete Time: 13:49 [facility] 04/12 13:47 Order name: O2 Sat Monitoring; Complete Time: 13:49 [facility] 04/12 13:47 Order name: Urine Dipstick-Ancillary (obtain specimen); Complete Time: 14:17 sin Administered Medications: 14:00 Drug: NS 0.9% 1000 ml Route: IV; Rate: 1 bolus; Site: left antecubital; bp 15:08 Follow up: IV Status: Completed infusion; IV Intake: 1000ml bp 14:00 Drug: Zofran 4 mg Route: IVP; Site: left antecubital; bp 15:08 Follow up: Response: No adverse reaction bp 14:00 Drug: Pepcid 20 mg Route: IVP; Site: left antecubital; bp 15:07 Follow up: Response: No adverse reaction bp 15:30 Drug: morphine 4 mg Route: IVP; Site: right antecubital; bp 16:41 Follow up: Response: No adverse reaction; Pain is decreased bp 15:30 Drug: Zofran 4 mg Route: IVP; Site: right antecubital; bp 16:41 Follow up: Response: No adverse reaction bp 16:59 Drug: Cipro 500 mg Route: PO; bp 17:00 Follow up: Response: No adverse reaction bp 16:59 Drug: Flagyl 500 mg Volume: 100 ml; Route: IVPB; Rate: 200 ml/hr; Infused Over: 30 bp mins; Site: right antecubital; 16:59 Follow up: IV Status: Completed infusion bp 17:30 Drug: LoMOTIL 1 tabs Route: PO; bp 17:32 Follow up: Response: Medication administered at discharge. bp Disposition: 04/12/19 16:42 Discharged to Home. Impression: Vomiting, Headache, Essential (primary) hypertension, Abdominal tenderness - rectal wall thickening, proctitis. - Condition is Stable. - Discharge Instructions: General Headache Without Cause, Migraine Headache, Hypertension, Nausea and Vomiting, Adult, How to Take a Sitz Bath, Nausea and Vomiting, Adult, Zuht-[id number], Hypertension, Vfmh-pz-Eprd, Migraine Headache, Gegf-en-Mupc, How to Take Your Blood Pressure, Jlzm-xi-Nogt, General Headache Without Cause, Clob-qa-Fiyl, Managing Your Hypertension, Colitis. - Prescriptions for Pepcid 20 mg Oral Tablet - take 1 tablet by ORAL route every 12 hours for 10 days; 20 tablet. Tylenol- Codeine #3 300-30 mg Oral Tablet - take 2 tablets by ORAL route every 6 hours As needed; 20 tablet. Zofran 4 mg Oral Tablet - take 1 tablet by ORAL route every 12 hours As needed; 20 tablet. Flagyl 500 mg Oral Tablet - take 1 tablet by ORAL route every 8 hours for 7 days; 30 tablet. Cipro 500 mg Oral Tablet - take 1 tablet by ORAL route every 12 hours for 7 days; 14 tablet. - Medication Reconciliation Form, Thank You Letter, Antibiotic Education, Prescription Opioid Use form. - Follow up: Private Physician; When: 2 - 3 days; Reason: Recheck today's complaints, Continuance of care, Re-evaluation by your physician. Follow up: Dirk Patel; When: 2 - 3 days; Reason: Recheck today's complaints, Continuance of care, Re-evaluation by your physician. Follow up: Rehana Lieberman MD; When: 2 - 3 days; Reason: Recheck today's complaints, Re-evaluation by your physician. - Problem is new. - Symptoms have improved. Signatures: Dispatcher [employer] EDMS Talon Whitt MD MD cha Baxter, Heather, RN RN Milind Pierce RN RN bp Corrections: (The following items were deleted from the chart) 16:44 16:42 04/12/2019 16:42 Discharged to Home. Impression: Vomiting; Headache; Essential sin (primary) hypertension; Abdominal tenderness - rectal wall thickening, proctitis. Condition is Stable. Discharge Instructions: General Headache Without Cause, Migraine Headache, Hypertension, Nausea and Vomiting, Adult, Nausea and Vomiting, Adult, [id number]-[id number], Hypertension, Mjis-rl-Nmlc, Migraine Headache, Xdgw-xr-Xbhd, How to Take Your Blood Pressure, Ndev-yl-Vaoy, General Headache Without Cause, Dhct-rf-Nywx, Managing Your Hypertension. Prescriptions for Pepcid 20 mg Oral Tablet - take 1 tablet by ORAL route every 12 hours for 10 days; 20 tablet, Tylenol-Codeine #3 300-30 mg Oral Tablet - take 2 tablets by ORAL route every 6 hours As needed; 20 tablet, Zofran 4 mg Oral Tablet - take 1 tablet by ORAL route every 12 hours As needed; 20 tablet. and Forms are Medication Reconciliation Form, Thank You Letter, Antibiotic Education, Prescription Opioid Use. Follow up: Private Physician; When: 2 - 3 days; Reason: Recheck today's complaints, Continuance of care, Re-evaluation by your physician. Follow up: Dirk Patel; When: 2 - 3 days; Reason: Recheck today's complaints, Continuance of care, Re-evaluation by your physician. Problem is new. Symptoms have improved. sin 17:44 16:44 04/12/2019 16:42 Discharged to Home. Impression: Vomiting; Headache; Essential bp (primary) hypertension; Abdominal tenderness - rectal wall thickening, proctitis. Condition is Stable. Discharge Instructions: General Headache Without Cause, Migraine Headache, Hypertension, Nausea and Vomiting, Adult, Nausea and Vomiting, Adult, Sohf-yx-Ledd, Hypertension, Omgp-qk-Fjlk, Migraine Headache, Nfze-zb-Yyqv, How to Take Your Blood Pressure, Cqae-if-Brfj, General Headache Without Cause, Xjjy-am-Xsuz, Managing Your Hypertension, Colitis. Prescriptions for Pepcid 20 mg Oral Tablet - take 1 tablet by ORAL route every 12 hours for 10 days; 20 tablet, Tylenol-Codeine #3 300-30 mg Oral Tablet - take 2 tablets by ORAL route every 6 hours As needed; 20 tablet, Zofran 4 mg Oral Tablet - take 1 tablet by ORAL route every 12 hours As needed; 20 tablet, Cipro 500 mg Oral Tablet - take 1 tablet by ORAL route every 12 hours for 7 days; 14 tablet, Flagyl 500 mg Oral Tablet - take 1 tablet by ORAL route every 8 hours for 7 days; 30 tablet. and Forms are Medication Reconciliation Form, Thank You Letter, Antibiotic Education, Prescription Opioid Use. Follow up: Private Physician; When: 2 - 3 days; Reason: Recheck today's complaints, Continuance of care, Re-evaluation by your physician. Follow up: Dirk Patel; When: 2 - 3 days; Reason: Recheck today's complaints, Continuance of care, Re-evaluation by your physician. Follow up: Rehana Lieberman; When: 2 - 3 days; Reason: Recheck today's complaints, Re-evaluation by your physician. Problem is new. Symptoms have improved. [facility]
[2019-04-12] MEDS ORDERED: CIPROFLOXACIN HCL 500 MG TAB ONE (16:56)
[2019-04-12] MEDS ORDERED: METRONIDAZOLE 500mg IVPB 500 MG/100 ML BAG IV ONE (16:56)
[2019-04-12] MEDS ORDERED: DIPHENOX/ATROP SULF 1 TAB PO ONE (17:20)
--- NOTE | 2019-04-13 08:38 | EKG ---
Test Date: 2019-04-12 Test Time: 14:13:10 Continuous Miner Operator: RALPH MEASUREMENT RESULTS: Intervals: Rate: 0 NV: QRSD: 0 QT: 0 QTc: 0 [place]: P: NV: QRS: 0 T: 0 INTERPRETIVE STATEMENTS: No QRS complexes found, no ECG analysis possible No previous ECG available for comparison Electronically Signed On 04-13-19 08:36:07 CDT by Agus Fisher
== END 2019-04-12 17:44 | disposition home or self-care (01) ==
LOC: ER 12:59
DX: K62.89 Other specified diseases of anus and rectum (principal); R10.819 Abdominal tenderness, unspecified site; R51 Headache; I10 Essential (primary) hypertension
CPT/HCPCS: 96361; 93005; 85025; 80048; 36415; 83735; 85610; 80076; 81003; 84484; 83690; 83880; 70450; 74177; 71045; 96375; 96374; 99284; Q9967; J7030; J2405 ×2

== ENCOUNTER 2019-04-21 09:15 | Emergency (ER) | payer OTHER ==
--- OUTSIDE RECORDS SUMMARY | 2019-04-21 09:18 | XMS REPORT | Clinical Summary ---
:1980 Author Organization [employer] Address [address] [place] [address] Care Team Providers Name Role Phone Asked, [...] MD Elevated CK Indra Farrell MD after 04/20/2018 Social History Tobacco Use Types Packs/Day Years [...] are in SPECTRAL COLOR DOPPLER the results (80308) section. EEG AWAKE/DROWSY LESS Routine 05/26/2018 8:50 [...] procedure are in the results section. after 04/20/2018 Results Echocardiogram complete w contrast and 3D [...] Organization Address City/State/Zipcode Phone Number [facility] [address] [place] [address] EEG (routine) (05/26/2018 8:50 AM CDT) Narrative Performed At Date of Service: May 26, 2018. [facility] DEPARTMENT OF PATHOLOGY AND Date of [...] a diagnosis of epilepsy. Performing Organization Address [facility] Phone Number [facility] DEPARTMENT OF PATHOLOGY [address] [place] [address]. [place] [address] AND [email or web address] Estimated GFR (05/26/2018 5:15 AM CDT)Only the most recent of2 resultswithin the time period is included. [facility] Estimated GFR >=90 mL/min/1.73 [facility] DEPARTMENT Comment: m2 OF PATHOLOGY AND CatergoryUnitsInterpretation GENOMIC MEDICINE G1 >=90 Normal or high G2 60-89Mildly decreased R9v64-32Rcxovh to moderately decreased K5b66-33Vpyrlumvwi to severely decreased G4 15-29Severely decreased G5 <15Kidney failure The eGFR was calculated using the Chronic Kidney Disease Epidemiology Collaboration (CKD-EPI) equation. Interpretation is based on recommendations of the National Kidney Foundation-Kidney Disease Outcomes Quality Initiative (NKF-KDOQI) published in 2014. Specimen Plasma specimen Performing Organization Address [facility] Phone Number [facility] DEPARTMENT OF PATHOLOGY [address] [place] [address]. [place] [address] AND [employer] [facility] Troponin (05/26/2018 5:15 AM CDT)Only the most recent of4 resultswithin the time period is included. Pathologist [facility] Troponin <0.30 0.00 - 0.30 [facility] DEPARTMENT OF Comment: ng/mL PATHOLOGY AND 0.11 - 1.49 ng/mlMay indicate increased risk of acute GENOMIC MEDICINE coronary syndrome. >=1.5 ng/mlConsistent with acute myocardial infarction. The diagnostic value of a single normal or non-diagnostic result is questionable.Serial samples at 2-6 hour intervals are required to rule out acute myocardial injury. Specimen Plasma specimen Performing Organization Address [facility] Phone Number [facility] DEPARTMENT OF PATHOLOGY [address] [place] [address] AND [facility] CBC with platelet and differential (05/26/2018 5:15 AM CDT)Only the most recent of2 resultswithin the time period is included. WBC 6.9 4.5 - 11.0 k/uL [facility] DEPARTMENT OF PATHOLOGY AND GENOMIC MEDICINE RBC 4.76 4.40 - 6.00 [facility] DEPARTMENT OF m/uL PATHOLOGY AND GENOMIC MEDICINE HGB 13.4 (L) 14.0 - 18.0 [facility] DEPARTMENT OF g/dL PATHOLOGY AND GENOMIC MEDICINE HCT 42.0 41.0 - 51.0 % [facility] DEPARTMENT OF PATHOLOGY AND GENOMIC MEDICINE MCV 88.2 82.0 - 100.0 fL [facility] DEPARTMENT OF PATHOLOGY AND GENOMIC MEDICINE MCH 28.2 27.0 - 34.0 pg [facility] DEPARTMENT OF PATHOLOGY AND GENOMIC MEDICINE MCHC 31.9 31.0 - 37.0 [facility] DEPARTMENT OF g/dL PATHOLOGY AND GENOMIC MEDICINE RDW - SD 47.4 37.0 - 55.0 fL [facility] DEPARTMENT OF PATHOLOGY AND GENOMIC MEDICINE MPV 11.2 (H) 6.9 - 11.0 fL [facility] DEPARTMENT OF PATHOLOGY AND GENOMIC MEDICINE Platelet count 160 150 - 400 K/uL [facility] DEPARTMENT OF PATHOLOGY AND GENOMIC MEDICINE Nucleated RBC 0.00 /100 WBC [facility] DEPARTMENT OF PATHOLOGY AND GENOMIC MEDICINE Neutrophils 42.7 39.0 - 69.0 % [facility] DEPARTMENT OF PATHOLOGY AND GENOMIC MEDICINE Lymphocytes 44.9 25.0 - 45.0 % [facility] DEPARTMENT OF PATHOLOGY AND GENOMIC MEDICINE Monocytes 6.7 0.0 - 10.0 % [facility] DEPARTMENT OF PATHOLOGY AND GENOMIC MEDICINE Eosinophils 5.2 (H) 0.0 - 5.0 % [facility] DEPARTMENT OF PATHOLOGY AND GENOMIC MEDICINE Basophils 0.4 0.0 - 1.0 % [facility] DEPARTMENT OF PATHOLOGY AND GENOMIC MEDICINE Immature granulocytes 0.1 0.0 - 1.0 % [facility] DEPARTMENT OF PATHOLOGY AND GENOMIC MEDICINE Specimen Blood Performing Organization Address City/[facility]/Zipcode Phone Number [facility] DEPARTMENT OF PATHOLOGY [id number] [place] [address] AND [facility] Magnesium level (05/26/2018 5:15 AM CDT) Magnesium 1.8 1.6 - 2.6 mg/dL [facility] DEPARTMENT OF PATHOLOGY AND GENOMIC MEDICINE Specimen Plasma specimen Performing Organization Address City/[facility] Phone Number [facility] DEPARTMENT OF PATHOLOGY [address] [place] [address] AND [facility] Creatine kinase, total (CPK) (05/26/2018 5:15 AM CDT)Only the most recent of4 resultswithin the time period is included. Creatine kinase 828 (H) 39 - 308 U/L [facility] DEPARTMENT OF PATHOLOGY [facility] Specimen Plasma specimen Performing Organization Address [facility] Phone Number [facility] DEPARTMENT OF PATHOLOGY [address] [place] [address] AND [facility] Basic metabolic panel (05/26/2018 5:15 AM CDT) Sodium 142 135 - 148 mEq/L [facility] DEPARTMENT OF PATHOLOGY AND GENOMIC MEDICINE Potassium 4.3 3.5 - 5.0 mEq/L [facility] DEPARTMENT OF PATHOLOGY AND GENOMIC MEDICINE Chloride 111 98 - 112 mEq/L [facility] DEPARTMENT OF PATHOLOGY AND GENOMIC MEDICINE CO2 20 (L) 24 - 31 mEq/L [facility] DEPARTMENT OF PATHOLOGY AND GENOMIC MEDICINE Anion gap 11@ANIO 7 - 15 mEq/L [facility] DEPARTMENT OF PATHOLOGY AND GENOMIC MEDICINE BUN 14 6 - 20 mg/dL [facility] DEPARTMENT OF PATHOLOGY AND GENOMIC MEDICINE Creatinine 1.13 0.70 - 1.20 mg/dL [facility] DEPARTMENT OF PATHOLOGY AND GENOMIC MEDICINE Glucose 94 65 - 99 mg/dL [facility] DEPARTMENT OF PATHOLOGY AND GENOMIC MEDICINE Calcium 8.5 8.3 - 10.2 mg/dL [facility] DEPARTMENT OF PATHOLOGY AND [employer] [facility] Specimen Plasma specimen Performing Organization Address [facility] Phone Number [facility] DEPARTMENT OF PATHOLOGY [address] [place] [address] AND [facility] MRI Brain Wo Contrast (05/25/2018 7:42 PM CDT) Specimen Narrative Performed At This [facility] has an attachment that is not [...] pneumatized. IMPRESSION: No acute intracranial abnormality identified. [facility]-[id number] Procedure Note Interface, Radiology Results Incoming - [...] pneumatized. IMPRESSION: No acute intracranial abnormality identified. [facility]-[id number] Performing Organization Address [facility]/Zipcode Phone Number [facility] [address] [place] [address] Thyroid stimulating hormone (05/25/2018 5:30 PM CDT) TSH 1.46 0.27 - 4.20 uIU/mL [facility] DEPARTMENT OF PATHOLOGY AND GENOMIC MEDICINE Specimen Plasma specimen Performing Organization Address [facility] Phone Number [facility] DEPARTMENT OF PATHOLOGY [id number] [place] [address] AND [facility] T4, free (05/25/2018 5:30 PM CDT) T4, free 1.3 0.9 - 1.7 ng/dL [facility] DEPARTMENT OF PATHOLOGY AND GENOMIC MEDICINE Specimen Plasma specimen Performing Organization Address [facility] Phone Number [facility] DEPARTMENT OF PATHOLOGY [address] [place] [address] AND [facility] Hemoglobin A1c (05/25/2018 5:30 PM CDT) Hemoglobin A1C 5.6 4.0 - 6.0 % [facility] DEPARTMENT OF Comment: PATHOLOGY AND GENOMIC MEDICINE Less than 6% - Goal of therapy for Type II Diabetes Less than 7%-Goal of therapy for Type I Diabetes Less than 8%-Acceptable control for Type I or Type II Diabetes Greater than 8%-Unacceptable control; action indicated. (ADA94) Specimen Blood Performing Organization Address City/State/Zipcode Phone Number [facility] DEPARTMENT OF PATHOLOGY [address] [place] [address] AND [facility] Alcohol level, blood (05/25/2018 5:30 PM CDT) Alcohol None Detected mg/dL [facility] DEPARTMENT OF Comment: PATHOLOGY AND Normal None Detected GENOMIC MEDICINE Legal Intoxication in [place]80 mg/dL (0.08%) - Whole Blood Toxic Abzhabbbltlwu836 mg/dL (0.2%) Potentially Iuunc532 - 500 mg/dL (0.35 - 0.5%) Alcohol percent None Detected % [facility] DEPARTMENT OF PATHOLOGY AND GENOMIC MEDICINE Specimen Plasma specimen Performing Organization Address City/[facility]/Zipcode Phone Number [facility] DEPARTMENT OF PATHOLOGY [address] [place] [address] AND [facility] Salicylate level (05/25/2018 5:30 PM CDT) Salicylate <0.4 (L) 3.0 - 30.0 mg/dL [facility] DEPARTMENT OF PATHOLOGY AND GENOMIC MEDICINE Specimen Plasma specimen Performing Organization Address City/[facility] Phone Number [facility] DEPARTMENT OF PATHOLOGY [address] [place] [address] AND [facility] Lipid panel (05/25/2018 5:30 PM CDT) Cholesterol 204 (H) 0 - 199 [facility] DEPARTMENT mg/dL OF PATHOLOGY AND GENOMIC MEDICINE Triglycerides 51 0 - 149 [facility] DEPARTMENT mg/dL OF PATHOLOGY AND GENOMIC MEDICINE HDL cholesterol 63 40 - 99,999 [facility] DEPARTMENT mg/dL OF PATHOLOGY AND GENOMIC MEDICINE LDL cholesterol 140 (H) 0 - 99 [facility] DEPARTMENT mg/dL OF PATHOLOGY AND GENOMIC MEDICINE Lipid panel See below [facility] DEPARTMENT interpretation Comment: OF PATHOLOGY AND Total Cholesterol (mg/dL) GENOMIC MEDICINE <200 Desirable 927-553Oqycqjtort-nowz >=240High Triglycerides (mg/dL) <150 Normal 491-985Feyctrzcio-avfv 200-499High >=500Very high HDL Cholesterol (mg/dL) <40Low (male) <50Low (female) LDL Cholesterol (mg/dL) <100 Optimal 100-129Near or above optimal 690-390Hzssznelll-iwps 160-189High >=190Very high Risk Catergories that modify [...] specimen Performing Organization Address City/State/Zipcode Phone Number [facility] DEPARTMENT OF PATHOLOGY [address] [place] [address] AND [employer] [facility] Renal (05/25/2018 4:56 PM CDT) Specimen Narrative Performed At [facility] CLINICAL INDICATION:Renal failureacute (kidney injury) COMPARISON:None. FINDINGS: [...] participate in the care of your patient. [facility]-[id number] Procedure Note Interface, Radiology Results Incoming - [...] participate in the care of your patient. [facility]-[id number] Performing Organization Address [facility] Phone Number [facility] [address] [place] [address] Pv carotid duplex (05/25/2018 4:55 PM CDT) Specimen Narrative Performed At [facility] Exam: Bilateral carotid artery Doppler History: syncope [...] arteries are patent and demonstrate antegrade flow. [id number] Procedure Note Interface, Radiology Results Incoming - [...] arteries are patent and demonstrate antegrade flow. [id number] Performing Organization Address [facility] Phone Number [facility] [address] [place] [id number] Urinalysis screen and microscopy, with reflex to culture (05/25/2018 11:44 AM CDT) Specimen site Clean catch [facility] DEPARTMENT OF PATHOLOGY AND GENOMIC MEDICINE Color, UA Yellow [facility] DEPARTMENT OF PATHOLOGY AND GENOMIC MEDICINE Appearance, UA Clear [facility] DEPARTMENT OF PATHOLOGY AND GENOMIC MEDICINE Specific gravity, UA 1.020 1.001 - 1.030 [facility] DEPARTMENT OF PATHOLOGY AND GENOMIC MEDICINE pH, UA 6.0 5.0 - 9.0 [facility] DEPARTMENT OF PATHOLOGY AND GENOMIC MEDICINE Protein, UA Negative Negative [facility] DEPARTMENT OF PATHOLOGY AND GENOMIC MEDICINE Glucose, UA Negative Negative [facility] DEPARTMENT OF PATHOLOGY AND GENOMIC MEDICINE Ketones, UA Negative Negative [facility] DEPARTMENT OF PATHOLOGY AND GENOMIC MEDICINE Bilirubin, UA Negative Negative [facility] DEPARTMENT OF PATHOLOGY AND GENOMIC MEDICINE Blood, UA Negative Negative [facility] DEPARTMENT OF PATHOLOGY AND GENOMIC MEDICINE Nitrite, UA Negative Negative [facility] DEPARTMENT OF PATHOLOGY AND GENOMIC MEDICINE Urobilinogen, UA <2.0 <2.0 E.U./dL [facility] DEPARTMENT OF PATHOLOGY AND GENOMIC MEDICINE Leukocyte esterase, Negative Negative [facility] DEPARTMENT OF UA PATHOLOGY AND GENOMIC MEDICINE Epithelial cells, UA <1 /HPF [facility] DEPARTMENT OF PATHOLOGY AND GENOMIC MEDICINE Round epithelial <1 0 - 5 /HPF [facility] DEPARTMENT OF cells, UA PATHOLOGY AND GENOMIC MEDICINE WBC, UA 7 (H) 0 - 1 /HPF [facility] DEPARTMENT OF PATHOLOGY AND GENOMIC MEDICINE RBC, UA 2 0 - 5 /HPF [facility] DEPARTMENT OF PATHOLOGY AND GENOMIC MEDICINE Bacteria, UA None seen None seen [facility] DEPARTMENT OF PATHOLOGY AND GENOMIC MEDICINE Yeast, UA None seen [facility] DEPARTMENT OF PATHOLOGY AND GENOMIC MEDICINE Yeast with None seen [facility] DEPARTMENT OF pseudohyphae, UA PATHOLOGY AND GENOMIC MEDICINE Specimen Urine Performing Organization Address City/State/Zipcode Phone Number [facility] DEPARTMENT OF PATHOLOGY [address] [place] [address] AND [facility] Urine drugs of abuse screen (05/25/2018 11:44 AM CDT) Pathologist [facility] Amphetamine screen, Negative [facility] DEPARTMENT urine OF PATHOLOGY AND GENOMIC MEDICINE Barbiturate screen, Negative [facility] DEPARTMENT urine OF PATHOLOGY AND GENOMIC MEDICINE Benzodiazepine Negative [facility] DEPARTMENT screen, urine OF PATHOLOGY AND GENOMIC MEDICINE Cannabinoid screen, Positive (A) [facility] DEPARTMENT urine OF PATHOLOGY AND GENOMIC MEDICINE Cocaine screen, urine Negative [facility] DEPARTMENT OF PATHOLOGY AND GENOMIC MEDICINE Methadone metabolite Negative [facility] DEPARTMENT (EDDP), urine OF PATHOLOGY AND GENOMIC MEDICINE Opiates screen, urine Negative [facility] DEPARTMENT OF PATHOLOGY AND GENOMIC MEDICINE Phencyclidine screen, Positive (A) [facility] DEPARTMENT urine OF PATHOLOGY AND [facility] Tricyclic screen, Negative [facility] DEPARTMENT urine Comment: OF PATHOLOGY AND Drug screen minimum concentration of detectability GENOMIC MEDICINE Kpwmdagjseuy8600 ng/mL Barbiturates 200 ng/mL Dcthswqhtdilpon136 ng/mL Tjndegm142 ng/mL Nyvjwazig055 ng/mL Nihavjm194 ng/mL Phencyclidine 25 ng/mL Bjvbaxxtofkm37 ng/mL Rgwfcxabti5826 ng/mL Negative test results indicates presumptive evidence of lack of clinically significant drug concentration in this urine specimen. Positive test results are presumptive evidence of clinically significant drug concentration in this urine specimen. Testing performed for medical purposes only. Specimen Urine Performing Organization Address City/[facility]/Zipcode Phone Number [facility] DEPARTMENT OF PATHOLOGY [address] [place] [address] AND [facility] Gram stain (05/25/2018 11:24 AM CDT) Gram stain result No WBC's or organisms seen. [facility] DEPARTMENT OF Comment: PATHOLOGY AND Specimen Information GENOMIC MEDICINE Specimen Source: Urine Specimen Site: Clean catch Specimen Urine Performing Organization Address City/[facility] Phone Number [facility] DEPARTMENT OF PATHOLOGY AND [address] [place] [address] [facility] Urine culture (05/25/2018 11:24 AM CDT) Urine culture Mixed Gram positive yoselin [facility] DEPARTMENT OF isolate 10-2 cfu/ml PATHOLOGY AND (A) GENOMIC MEDICINE Comment: Specimen Information Specimen Source: Urine Specimen Site: Clean catch Specimen Urine Performing Organization Address [facility] Phone Number [facility] DEPARTMENT OF PATHOLOGY AND [address] [place], [place] [id number] [facility] CT Head Wo Contrast (05/25/2018 10:05 AM [...] head CT with no acute intracranial abnormality. [facility]-[id number] Procedure Note Hm Interface, Radiology Results Incoming [...] head CT with no acute intracranial abnormality. [facility]-[id number] Performing Organization Address [facility] Phone Number [facility] [address] [place] [address] ECG 12 lead (05/25/2018 9:48 AM CDT) [facility] Ventricular rate 73 [facility] Atrial rate 73 [facility] NV interval 228 [facility] QRSD interval 84 [...] 05/26/2018 5:47:13 AM Specimen Performing Organization Address [facility] Phone Number [facility] MUSE [address] [place] [address] ECG ED Preliminary Interpretation - NOT AN ORDER (05/25/2018 9:42 AM CDT) Narrative Performed At Brennan Cano NP 05/25/20187:17 PM ECG ED Preliminary Interpretation - Not an Order Performed by: BRENNAN CANO Authorized by: MARZENA CALIXTO ECG reviewed by ED Physician in the absence of a wrapper stripper: yes Interpretation: Interpretation: abnormal Rate: ECG rate:73 ECG rate assessment: normal Rhythm: Rhythm: sinus rhythm and A-V block Ectopy: Ectopy: none QRS: QRS axis:Normal (84) QRS intervals:Normal Conduction: Conduction: abnormal Abnormal conduction: 1st degree B natriuretic peptide (05/25/2018 9:40 AM CDT) BNP 44 0 - 100 pg/mL [facility] DEPARTMENT OF PATHOLOGY AND GENOMIC MEDICINE Specimen Blood Performing Organization Address City/[facility] Phone Number [facility] DEPARTMENT OF PATHOLOGY [address] [place] [address] AND [facility] Lipase level (05/25/2018 9:40 AM CDT) Lipase 16 13 - 60 U/L [facility] DEPARTMENT OF PATHOLOGY AND GENOMIC MEDICINE Specimen Plasma specimen Performing Organization Address City/[facility] Phone Number [facility] DEPARTMENT OF PATHOLOGY [address] [place] [address] AND [facility] Comprehensive metabolic panel (05/25/2018 9:40 AM CDT) Sodium 140 135 - 148 mEq/L [facility] DEPARTMENT OF PATHOLOGY AND GENOMIC MEDICINE Potassium 4.0 3.5 - 5.0 mEq/L [facility] DEPARTMENT OF PATHOLOGY AND GENOMIC MEDICINE Chloride 104 98 - 112 mEq/L [facility] DEPARTMENT OF PATHOLOGY AND GENOMIC MEDICINE CO2 25 24 - 31 mEq/L [facility] DEPARTMENT OF PATHOLOGY AND GENOMIC MEDICINE Anion gap 11@ANIO 7 - 15 mEq/L [facility] DEPARTMENT OF PATHOLOGY AND GENOMIC MEDICINE BUN 14 6 - 20 mg/dL [facility] DEPARTMENT OF PATHOLOGY AND GENOMIC MEDICINE Creatinine 1.25 (H) 0.70 - 1.20 [facility] DEPARTMENT OF mg/dL PATHOLOGY AND GENOMIC MEDICINE Glucose 103 (H) 65 - 99 mg/dL [facility] DEPARTMENT OF PATHOLOGY AND GENOMIC MEDICINE Calcium 9.9 8.3 - 10.2 [facility] DEPARTMENT OF mg/dL PATHOLOGY AND GENOMIC MEDICINE Protein 7.5 6.3 - 8.3 g/dL [facility] DEPARTMENT OF PATHOLOGY AND GENOMIC MEDICINE Albumin 4.4 3.5 - 5.0 g/dL [facility] DEPARTMENT OF PATHOLOGY AND GENOMIC MEDICINE A/G ratio 1.4 0.7 - 3.8 [facility] DEPARTMENT OF PATHOLOGY AND GENOMIC MEDICINE Alkaline phosphatase 82 40 - 129 U/L [facility] DEPARTMENT OF PATHOLOGY AND GENOMIC MEDICINE AST 35 10 - 50 U/L [facility] DEPARTMENT OF PATHOLOGY AND GENOMIC MEDICINE ALT 30 5 - 50 U/L [facility] DEPARTMENT OF PATHOLOGY AND GENOMIC MEDICINE Total bilirubin 0.8 0.2 - 1.2 mg/dL [facility] DEPARTMENT OF PATHOLOGY AND GENOMIC MEDICINE Specimen Plasma specimen Performing Organization Address City/State/Zipcode Phone Number [facility] DEPARTMENT OF PATHOLOGY [id number] [place] [phone] AND GENOMIC MEDICINE POC glucose (05/25/2018 9:33 AM CDT) POC glucose 118 (H) 65 - 99 mg/dL [facility] DEPARTMENT OF Comment: PATHOLOGY AND Meter ID: [id number] GENOMIC MEDICINE [address] Production Manager: Bryan Tafoya Specimen Performing Organization Address City/State/Zipcode Phone Number [facility] DEPARTMENT OF PATHOLOGY [address] [place] [address] AND GENOMIC MEDICINE after 04/20/2018 Advance Directives For more information, please contact: [phone] Type Date Recorded 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
[2019-04-21] MEDS ORDERED: ACETAMINOPHEN 500 MG TAB ONE (09:46)
--- NOTE | 2019-04-21 09:48 | ER ---
Nurse's Notes [facility] Name: Terry Akins Sr Age: 38 yrs Sex: Male : 1980 Arrival Date: 04/21/2019 Time: 09:19 Bed 14 Private MD: Diagnosis: Cellulitis of abdominal wall Presentation: 04/21 09:26 Presenting complaint: Patient states: got bit by something last night, redness and iw itchiness increased today, redness and swelling noted to LLQ. Transition of care: patient was not received from another setting of care. Onset of symptoms was April 20, 2019. Risk Assessment: Do you want to hurt yourself or someone else? Patient reports no desire to harm self or others. Initial Sepsis Screen: Does the patient meet any 2 criteria? No. Patient's initial sepsis screen is negative. Does the patient have a suspected source of infection? No. Patient's initial sepsis screen is negative. Care prior to arrival: None. 09:26 Method Of Arrival: Ambulatory iw 09:26 Acuity: SARITHA 4 iw Triage Assessment: :30 Bite description: bite sustained to left lower quadrant by an unknown animal, animal jl7 information: vaccination(s) is not applicable. General: Appears in no apparent distress. uncomfortable, Behavior is calm, cooperative, appropriate for age. Historical: - Allergies: : No Known Allergies; iw - PMHx: : GERD; Hypertension; iw - PSHx: :28 Appendectomy; Hemorrhoidectomy; Ulinerve transplantation BUE; Carpal Tunnel Repair; iw Tendonitis left arm; - Immunization history:: Adult Immunizations not up to date. - Social history:: Smoking status: . - Ebola Screening: : Patient negative for fever greater than or equal to 101.5 degrees Fahrenheit, and additional compatible Ebola Virus Disease symptoms Patient denies exposure to infectious person Patient denies travel to an Ebola-affected area in the 21 days before illness onset No symptoms or risks identified at this time. Screenin:30 Abuse screen: Denies threats or abuse. Denies injuries from another. Nutritional jl7 screening: No deficits noted. Tuberculosis screening: No symptoms or risk factors identified. Fall Risk None identified. Assessment: 09:30 General: Appears in no apparent distress. uncomfortable, Behavior is calm, cooperative, jl7 appropriate for age. Pain: Complains of pain in left lower quadrant Pain currently is 9 out of 10 on a pain scale. Neuro: Level of Consciousness is awake, alert, obeys commands, Oriented to person, place, time, situation. Cardiovascular: Patient's skin is warm and dry. Respiratory: Airway is patent Respiratory effort is even, unlabored, Respiratory pattern is regular, symmetrical. GI: No signs and/or symptoms were reported involving the gastrointestinal system. : No signs and/or symptoms were reported regarding the genitourinary system. EENT: No signs and/or symptoms were reported regarding the EENT system. Derm: Skin is intact, Skin is pink, warm \T\ dry. Abscess located on left lower quadrant is dime sized, has no drainage, is hot to touch, is red. Vital Signs: 09:27 BP 163 / 94; Pulse 77; Resp 16; Temp 98.2; Pulse Ox 100% ; Weight 131.54 kg; Height 6 iw ft. 3 in. (190.50 cm); Pain 9/10; 10:20 BP 142 / 68; Pulse 67; Resp 16 S; Pulse Ox 100% on R/A; jl7 09:27 Body Mass Index 36.25 (131.54 kg, 190.50 cm) iw ED Course: 09:19 Patient arrived in ED. mr 09:22 Angel Pedroza PA is PHCP. jmm 09:23 Kwame Ortiz MD is Attending Physician. jm 09:26 Lety Otero, BRYN is Primary Nurse. jl7 09:27 Triage completed. iw 09:30 Patient has correct armband on for positive identification. Bed in low position. Call jl7 light in reach. Side rails up X 1. Pulse ox on. NIBP on. 09:30 Arm band placed on right wrist. jl7 10:20 No provider procedures requiring assistance completed. Patient did not have IV access jl7 during this emergency room visit. Administered Medications: :47 Drug: Tylenol 1000 mg Route: PO; jl7 10:00 Follow up: Response: Medication administered at discharge. jl7 Outcome: :47 Discharge ordered by . jmm 10:20 Discharged to home ambulatory. jl7 10:20 Condition: stable 10:20 Discharge instructions given to patient, family, Instructed on discharge instructions, follow up and referral plans. medication usage, Demonstrated understanding of instructions, follow-up care, medications, Prescriptions given X 2. 10:24 Patient left the ED. jl7 Signatures: Angel Pedroza PA PA jmm Rivera Ghislaine Glendy Phillips RN RN iw Leal, Jahala, RN RN jl7
--- NOTE | 2019-04-21 09:49 | EDPHYS ---
Physician Documentation [facility] Name: Terry Akins Sr Age: 38 yrs Sex: Male : 1980 Arrival Date: 04/21/2019 Time: 09:19 Bed 14 Private MD: ED Physician Kwame Ortiz HPI: 04/21 09:41 This 38 yrs old Black Male presents to ER via Ambulatory with complaints of Insect Bite.jmm 09:41 the patient presents with a swollen area of the left lower quadrant. Onset: The jmm symptoms/episode began/occurred gradually, 1 day(s) ago. Possible cause(s): spider bite. Associated signs and symptoms: Pertinent positives: erythema, headache, Pertinent negatives: fever. This is a 38 year old male with a history of htn that presents to the ED with complaints of redness and swelling to his abdomen. Denies fever but states having a headache. . Historical: - Allergies: 09:28 No Known Allergies; iw - PMHx: 09:28 GERD; Hypertension; iw - PSHx: 09:28 Appendectomy; Hemorrhoidectomy; Ulinerve transplantation BUE; Carpal Tunnel Repair; iw Tendonitis left arm; - Immunization history:: Adult Immunizations not up to date. - Social history:: Smoking status: . - Ebola Screening: : Patient negative for fever greater than or equal to 101.5 degrees Fahrenheit, and additional compatible Ebola Virus Disease symptoms Patient denies exposure to infectious person Patient denies travel to an Ebola-affected area in the 21 days before illness onset No symptoms or risks identified at this time. ROS: 09:41 Constitutional: Negative for fever, chills, and weight loss, Cardiovascular: Negative jmm for chest pain, palpitations, and edema, Respiratory: Negative for shortness of breath, cough, wheezing, and pleuritic chest pain, Abdomen/GI: Negative for abdominal pain, nausea, vomiting, diarrhea, and constipation. 09:41 Skin: Positive for erythema. 09:41 All other systems are negative. Exam: 09:41 Constitutional: This is a well developed, well nourished patient who is awake, alert, jmm and in no acute distress. Head/Face: atraumatic. Eyes: EOMI, no conjunctival erythema appreciated ENT: Moist Mucus Membranes Neck: Trachea midline, Supple Chest/axilla: Normal chest wall appearance and motion. Cardiovascular: Regular rate and rhythm. No edema appreciated Respiratory: Normal respirations, no respiratory distress appreciated 09:41 MS/ Extremity: Moves all extremities, no obvious deformities appreciated, no edema noted to the lower extremities Neuro: Awake and alert, normal gait Psych: Behavior is normal, Mood is normal, Patient is cooperative and pleasant 09:41 Abdomen/GI: erythema and induration noted to the left lower quadrant. mildly ttp, no fluctuance appreciated. . 09:41 Skin: erythema noted to the to the llq with induration. Vital Signs: 09:27 BP 163 / 94; Pulse 77; Resp 16; Temp 98.2; Pulse Ox 100% ; Weight 131.54 kg; Height 6 iw ft. 3 in. (190.50 cm); Pain 9/10; 10:20 BP 142 / 68; Pulse 67; Resp 16 S; Pulse Ox 100% on R/A; jl7 09:27 Body Mass Index 36.25 (131.54 kg, 190.50 cm) iw MDM: 09:39 Patient medically screened. [facility] 09:46 Data reviewed: vital signs, nurses notes. Counseling: I had a detailed discussion with latasha the patient and/or guardian regarding: the historical points, exam findings, and any diagnostic results supporting the discharge/admit diagnosis, the need for outpatient follow up, to return to the emergency department if symptoms worsen or persist or if there are any questions or concerns that arise at home. ED course: Patient is alert and non toxic in appearance in the ED. Patient advised to follow up with pcp and otherwise given strict return precautions. Patient understood and agrees with the plan of care. . Administered Medications: 09:47 Drug: Tylenol 1000 mg Route: PO; jl7 10:00 Follow up: Response: Medication administered at discharge. jl7 Disposition: 11:05 Co-signature as Attending Physician, Kwame Ortiz MD. rn Disposition: 04/21/19 09:47 Discharged to Home. Impression: Cellulitis of abdominal wall. - Condition is Stable. - Discharge Instructions: Cellulitis, Adult. - Prescriptions for Bactrim DS 800- 160 mg Oral Tablet - take 1 tablet by ORAL route every 12 hours for 10 days; 20 tablet. Doxycycline Monohydrate 100 mg Oral Tablet - take 1 tablet by ORAL route every 12 hours for 10 days; 20 tablet. - Medication Reconciliation Form, Thank You Letter, Antibiotic Education, Prescription Opioid Use, Work release form, Family Work Release form. - Follow up: Private Physician; When: 2 - 3 days; Reason: Recheck today's complaints, Continuance of care, Re-evaluation by your physician. Signatures: Angel Pedroza PA PA jmm Williams, Irene, Kwame Solis RN, MD MD rn Leal, Jahala, RN RN jl7 Corrections: (The following items were deleted from the chart) 10:24 09:47 04/21/2019 09:47 Discharged to Home. Impression: Cellulitis of abdominal wall. jl7 Condition is Stable. Forms are Medication Reconciliation Form, Thank You Letter, Antibiotic Education, Prescription Opioid Use. Follow up: Private Physician; When: 2 - 3 days; Reason: Recheck today's complaints, Continuance of care, Re-evaluation by your physician. latasha
[2019-04-21 10:30] VITALS: BP 163/94; TEMP 98.2; O2SAT 100
== END 2019-04-21 10:24 | disposition home or self-care (01) ==
LOC: ER 09:15
DX: L03.311 Cellulitis of abdominal wall (principal)
CPT/HCPCS: 99283

== ENCOUNTER 2019-06-19 11:07 | Emergency (ER) | payer OTHER ==
[2019-06-19 12:31] LABS: Absolute Lymphocytes (CBC) 1.2 K/uL (0.7-4.9); Basophils % 0.6 % (0-1.3); Hematocrit 45.8 % (39.6-49.0); Lymphocytes % 24.9 % (15.3-44.8); MPV 9.5 fL (7.6-11.3); RBC Red Blood Cell Count 5.36 M/uL (4.33-5.43)
[2019-06-19] MEDS ORDERED: ONDANSETRON 4 MG/2 ML VIAL ONE ×2 (12:34→14:21)
[2019-06-19] MEDS ORDERED: MORPHINE 4 MG/ML SYR ONE ×2 (12:34→14:21)
[2019-06-19] MEDS ORDERED: FAMOTIDINE 20 MG/2 ML VIAL IV ONE (12:34)
[2019-06-19 12:50] LABS: Albumin 3.9 g/dL (3.4-5.0); Bilirubin Direct 0.2 mg/dL (0-0.2); Bilirubin Total 0.7 mg/dL (0.2-1.0); Potassium 4.1 mmol/L (3.5-5.1); Protein, Total 7.2 g/dL (6.4-8.2)
--- NOTE | 2019-06-19 12:54 | RAD REPORT ---
EXAM DESCRIPTION: RAD - Knee Right 3 View - 06/19/2019 12:38 pm CLINICAL HISTORY: PAIN COMPARISON: <Comparisons> FINDINGS: No acute fracture or dislocation. No joint effusion. IMPRESSION: No acute findings seen.
--- NOTE | 2019-06-19 13:30 | RAD REPORT ---
EXAM DESCRIPTION: CT - Abdomen Pelvis W Contrast - 06/19/2019 1:10 pm CLINICAL HISTORY: ABD PAIN COMPARISON: CT April 12, 2019 TECHNIQUE: Biphasic, helical CT imaging of the abdomen and pelvis was performed following 100 ml non -ionic IV contrast. No oral contrast administered. All CT scans are performed using dose optimization technique as appropriate and may include automated exposure control or mA/KV adjustment according to patient size. FINDINGS: No suspicious findings in the lung bases. The liver, spleen, and pancreas show no suspicious findings. Gallbladder and biliary tree are also wi thout suspicious finding. Symmetric renal function is seen with no hydronephrosis or suspicious renal mass. No pyelonephritis o r acute parenchymal process. No bladder abnormalities. No adrenal abnormalities. No gastric dilatation or gastric wall thickening. No dilated small bowel loops. A few mildly prominen t loops jejunum are present. This is very nonspecific. Small bowel enteritis would be possible. No ap pendicitis findings. A few small mesenteric lymph nodes are seen in the abdomen. Minimal sigmoid dive rticulosis is present. The questionable rectal wall thickening detailed April 12 is not evident on this examination. No free air, free fluid or inflammatory stranding. No hernia, mass or bulky lymp hadenopathy. No suspicious bony findings. IMPRESSION: Contrast-enhanced CT imaging shows no emergent CT finding. A few loops of jejunum are prominent. This is a nonspecific pattern but can indicate enteritis.
--- NOTE | 2019-06-19 13:46 | RAD REPORT ---
EXAM DESCRIPTION: US - Abdomen Exam Limited - 06/19/2019 1:33 pm CLINICAL HISTORY: ABD PAIN COMPARISON: Abdomen Pelvis W Contrast dated 06/19/2019 FINDINGS: No gallstones, sludge or other abnormalities within the gallbladder lumen. There is no wal l thickening or pericholecystic fluid. No common duct stone or biliary tree dilatation identified. IMPRESSION: Normal gallbladder and biliary tree ultrasound.
--- NOTE | 2019-06-19 14:00 | ER ---
Nurse's Notes [facility] Name: Terry Akins Sr Age: 39 yrs Sex: Male : 1980 Arrival Date: 06/19/2019 Time: 11:11 Bed 26 Private MD: Diagnosis: Abdominal tenderness;Vomiting Presentation: 06/19 11:21 Presenting complaint: Patient states: "First its my knee, it feels like its a ton of aj1 bricks. I can barely lift it. 3 days ago I had a migraine so I took aspirin and ibuprofen and it went away but the next day, every time I eat my stomach hurts. I can't eat anything without it hurting. Its been going on 3 days now" Patient also reports vomiting, diarrhea. Denies fever. Transition of care: patient was not received from another setting of care. Onset of symptoms was June 2019. Risk Assessment: Do you want to hurt yourself or someone else? Patient reports no desire to harm self or others. Initial Sepsis Screen: Does the patient meet any 2 criteria? No. Patient's initial sepsis screen is negative. Does the patient have a suspected source of infection? Yes: Acute abdominal pain. Care prior to arrival: None. 11:21 Method Of Arrival: Ambulatory aj1 11:21 Acuity: SARITHA 3 aj1 Triage Assessment: 11:23 General: Appears in no apparent distress. uncomfortable, Behavior is calm, cooperative, aj1 appropriate for age. Pain: Complains of pain in abdomen Pain currently is 10 out of 10 on a pain scale. Neuro: Level of Consciousness is awake, alert, obeys commands. Cardiovascular: Patient's skin is warm and dry. Respiratory: Airway is patent Respiratory effort is even, unlabored, Respiratory pattern is regular, symmetrical. GI: Reports lower abdominal pain, upper abdominal pain, nausea, vomiting. Historical: - Allergies: 11:23 No Known Allergies; aj1 - Home Meds: 11:23 None [Active]; aj1 - PMHx: 11:23 GERD; Hypertension; aj1 - Immunization history:: Flu vaccine is not up to date. - Social history:: Smoking status: Patient uses tobacco products, denies chronic smoking, but will smoke occasionally. - Ebola Screening: : Patient denies travel to an Ebola-affected area in the 21 days before illness onset. Screenin:28 Abuse screen: Denies threats or abuse. Nutritional screening: No deficits noted. la1 Tuberculosis screening: No symptoms or risk factors identified. Fall Risk None identified. Assessment: 12:27 General: Appears in no apparent distress. Behavior is calm, cooperative. Pain: la1 Complains of pain in abdomen. Neuro: Level of Consciousness is awake, alert, obeys commands. Cardiovascular: Capillary refill < 3 seconds Patient's skin is warm and dry. Respiratory: Airway is patent Respiratory effort is even, unlabored, Respiratory pattern is regular, symmetrical. GI: Abdomen is obese, Bowel sounds present X 4 quads. Abd is soft X 4 quads Reports nausea, vomiting. : No signs and/or symptoms were reported regarding the genitourinary system. 14:35 Reassessment: Patient appears in no apparent distress at this time. No changes from la1 previously documented assessment. Patient and/or family updated on plan of care and expected duration. Pain level reassessed. Patient is alert, oriented x 3, equal unlabored respirations, skin warm/dry/pink. Patient states symptoms have improved. Vital Signs: 11:23 BP 147 / 111; Pulse 76; Resp 18; Temp 97.9; Pulse Ox 98% on R/A; Weight 130.63 kg (R); aj1 Height 6 ft. 3 in. (190.50 cm) (R); Pain 10/10; 12:08 BP 147 / 90 LA (auto/lg); Pulse 62; Temp 98.2(O); Pulse Ox 97% on R/A; Pain 10/10; jp3 13:25 BP 145 / 79; Pulse 87; Resp 16; Pulse Ox 98% on R/A; la1 11:23 Body Mass Index 36.00 (130.63 kg, 190.50 cm) aj1 ED Course: 11:11 Patient arrived in ED. mr 11:22 Triage completed. aj1 11:23 Arm band placed on Patient placed in waiting room, Patient notified of wait time. aj1 11:55 Talon Whitt MD is Attending Physician. [facility] 12:01 Pino Fairchild, BRYN is Primary Nurse. la1 12:28 Patient has correct armband on for positive identification. la1 12:28 Initial lab(s) drawn, by me, sent to lab. Inserted saline lock: 20 gauge in right jp3 antecubital area, using aseptic technique. Blood collected. Patient maintains SpO2 saturation greater than 95% on room air. 12:30 Placed in gown. Bed in low position. Call light in reach. Side rails up X 1. Warm jp3 blanket given. Verbal reassurance given. Lights dimmed. Pulse ox on. NIBP on. 12:39 Knee Right 3 View XRAY In Process Unspecified. EDMS 13:07 CT completed. Patient tolerated procedure well. Patient moved to CT via wheelchair. sw Patient moved back from CT. 13:10 CT Abd/Pelvis - IV Contrast Only In Process Unspecified. EDMS 13:34 US Abdomen Limited In Process Unspecified. EDMS 13:59 Rehana Lieberman MD is Referral Physician. [facility] 14:36 No provider procedures requiring assistance completed. IV discontinued, intact, la1 bleeding controlled, No redness/swelling at site. Pressure dressing applied. Administered Medications: 12:40 Drug: Zofran 4 mg Route: IVP; Site: right antecubital; la1 12:40 Drug: Pepcid 20 mg Route: IVP; Site: right antecubital; la1 14:36 Follow up: Response: No adverse reaction la1 12:41 Drug: morphine 4 mg Route: IVP; Site: right antecubital; la1 14:36 Follow up: Response: No adverse reaction; Pain is decreased la1 14:24 Drug: morphine 4 mg {Note: RASS:0.} Route: IVP; Site: right antecubital; tr5 14:35 Follow up: Response: No adverse reaction; Pain is decreased la1 14:24 Drug: Zofran 4 mg Route: IVP; Site: right antecubital; tr5 14:36 Follow up: Response: No adverse reaction la1 Outcome: 13:59 Discharge ordered by . sin 14:37 Discharged to home ambulatory. la1 14:37 Condition: stable 14:37 Discharge instructions given to patient, Instructed on discharge instructions, follow up and referral plans. medication usage, Demonstrated understanding of instructions, follow-up care, medications, Prescriptions given X 4. 14:37 Patient left the ED. la1 Signatures: Dispatcher [employer] EDMS Fern Davila RN RN aj1 Talon Whitt MD MD cha Rivera, Mary mr Attema, Lee, RN RN la1 Piedad Graf Jacob jp3 Jeromy Gunn, RN RN tr5
--- NOTE | 2019-06-19 14:01 | EDPHYS ---
Physician Documentation [facility] Name: Terry Akins Sr Age: 39 yrs Sex: Male : 1980 Arrival Date: 06/19/2019 Time: 11:11 Bed 26 Private MD: ED Physician Talon Whitt HPI: 06/19 12:59 This 39 yrs old Black Male presents to ER via Ambulatory with complaints of Knee Pain, sin Abdominal Pain. 12:59 The patient presents with abdominal pain in the epigastric area, in the upper abdomen, sin abdominal distention in the epigastric area, in the upper abdomen. Onset: The symptoms/episode began/occurred 2 day(s) ago. The symptoms do not radiate. Associated signs and symptoms: none. The symptoms are described as constant, crampy. Modifying factors: The symptoms are alleviated by nothing, the symptoms are aggravated by food. Severity of pain: At its worst the pain was mild moderate in the emergency department the pain is unchanged. The patient has not experienced similar symptoms in the past. Historical: - Allergies: 11:23 No Known Allergies; aj1 - Home Meds: :23 None [Active]; aj1 - PMHx: 11:23 GERD; Hypertension; aj1 - Immunization history:: Flu vaccine is not up to date. - Social history:: Smoking status: Patient uses tobacco products, denies chronic smoking, but will smoke occasionally. - Ebola Screening: : Patient denies travel to an Ebola-affected area in the 21 days before illness onset. ROS: 12:59 Constitutional: Negative for fever, chills, and weight loss, Eyes: Negative for injury, sin pain, redness, and discharge, ENT: Negative for injury, pain, and discharge, Neck: Negative for injury, pain, and swelling, Cardiovascular: Negative for chest pain, palpitations, and edema, Respiratory: Negative for shortness of breath, cough, wheezing, and pleuritic chest pain, Back: Negative for injury and pain, : Negative for injury, bleeding, discharge, and swelling, MS/Extremity: Negative for injury and deformity, Skin: Negative for injury, rash, and discoloration, Neuro: Negative for headache, weakness, numbness, tingling, and seizure, Psych: Negative for depression, anxiety, suicide ideation, homicidal ideation, and hallucinations, Allergy/Immunology: Negative for hives, rash, and allergies, Endocrine: Negative for neck swelling, polydipsia, polyuria, polyphagia, and marked weight changes, Hematologic/Lymphatic: Negative for swollen nodes, abnormal bleeding, and unusual bruising. 12:59 Abdomen/GI: Positive for abdominal pain, of the epigastric area, right upper quadrant and left upper quadrant. Exam: 12:59 Constitutional: This is a well developed, well nourished patient who is awake, alert, sin and in no acute distress. Head/Face: Normocephalic, atraumatic. Eyes: Pupils equal round and reactive to light, extra-ocular motions intact. Lids and lashes normal. Conjunctiva and sclera are non-icteric and not injected. Cornea within normal limits. Periorbital areas with no swelling, redness, or edema. ENT: Nares patent. No nasal discharge, no septal abnormalities noted. Tympanic membranes are normal and external auditory canals are clear. Oropharynx with no redness, swelling, or masses, exudates, or evidence of obstruction, uvula midline. Mucous membranes moist. Neck: Trachea midline, no thyromegaly or masses palpated, and no cervical lymphadenopathy. Supple, full range of motion without nuchal rigidity, or vertebral point tenderness. No Meningismus. Chest/axilla: Normal chest wall appearance and motion. Nontender with no deformity. No lesions are appreciated. Cardiovascular: Regular rate and rhythm with a normal S1 and S2. No gallops, murmurs, or rubs. Normal PMI, no JVD. No pulse deficits. Respiratory: Lungs have equal breath sounds bilaterally, clear to auscultation and percussion. No rales, rhonchi or wheezes noted. No increased work of breathing, no retractions or nasal flaring. Back: No spinal tenderness. No costovertebral tenderness. Full range of motion. Male : Normal genitalia with no discharge or lesions. Skin: Warm, dry with normal turgor. Normal color with no rashes, no lesions, and no evidence of cellulitis. MS/ Extremity: Pulses equal, no cyanosis. Neurovascular intact. Full, normal range of motion. Neuro: Awake and alert, GCS 15, oriented to person, place, time, and situation. Cranial nerves II-XII grossly intact. Motor strength 5/5 in all extremities. Sensory grossly intact. Cerebellar exam normal. Normal gait. Psych: Awake, alert, with orientation to person, place and time. Behavior, mood, and affect are within normal limits. 12:59 Abdomen/GI: Inspection: distension, Bowel sounds: normal, Liver: no appreciated palpable abnormalities, Hernia: not appreciated. Vital Signs: 11:23 BP 147 / 111; Pulse 76; Resp 18; Temp 97.9; Pulse Ox 98% on R/A; Weight 130.63 kg (R); aj1 Height 6 ft. 3 in. (190.50 cm) (R); Pain 10/10; 12:08 BP 147 / 90 LA (auto/lg); Pulse 62; Temp 98.2(O); Pulse Ox 97% on R/A; Pain 10/10; jp3 13:25 BP 145 / 79; Pulse 87; Resp 16; Pulse Ox 98% on R/A; la1 11:23 Body Mass Index 36.00 (130.63 kg, 190.50 cm) aj MDM: 11:55 Patient medically screened. [facility] 13:01 Data reviewed: vital signs, nurses notes, lab test result(s), EKG, radiologic studies, [facility] CT scan, plain films, ultrasound. 11 12:07 Order name: Basic Metabolic Panel; Complete Time: 12:58 [facility] 06/19 12:07 Order name: CBC with Diff; Complete Time: 12:58 [facility] 06/19 12:07 Order name: Creatinine for Radiology; Complete Time: 12:58 [facility] 06/19 12:07 Order name: Hepatic Function; Complete Time: 12:58 [facility] 06/19 12:07 Order name: Lipase; Complete Time: 12:58 [facility] 06/19 12:07 Order name: Knee Right 3 View XRAY; Complete Time: 13:55 [facility] 06/19 12:07 Order name: IV Saline Lock; Complete Time: 12:31 [facility] 06/19 12:40 Order name: CT Abd/Pelvis - IV Contrast Only; Complete Time: 13:55 [facility] 06/19 12:58 Order name: US Abdomen Limited; Complete Time: 13:55 [facility] 06/19 12:07 Order name: Labs collected and sent; Complete Time: 12:31 la Administered Medications: 12:40 Drug: Zofran 4 mg Route: IVP; Site: right antecubital; la1 12:40 Drug: Pepcid 20 mg Route: IVP; Site: right antecubital; la1 14:36 Follow up: Response: No adverse reaction la1 12:41 Drug: morphine 4 mg Route: IVP; Site: right antecubital; la1 14:36 Follow up: Response: No adverse reaction; Pain is decreased la1 14:24 Drug: morphine 4 mg {Note: RASS:0.} Route: IVP; Site: right antecubital; tr5 14:35 Follow up: Response: No adverse reaction; Pain is decreased la1 14:24 Drug: Zofran 4 mg Route: IVP; Site: right antecubital; tr5 14:36 Follow up: Response: No adverse reaction la1 Disposition: 06/19/19 13:59 Discharged to Home. Impression: Abdominal tenderness, Vomiting. - Condition is Stable. - Discharge Instructions: Abdominal Pain, Adult, Nausea and Vomiting, Adult, Nausea and Vomiting, Adult, [id number], Abdominal Pain, Adult, [id number]. - Prescriptions for Bentyl 20 mg Oral Tablet - take 1 tablet by ORAL route every 6 hours As needed; 20 tablet. Flagyl 500 mg Oral Tablet - take 1 tablet by ORAL route every 12 hours for 7 days; 14 tablet. Pepcid 20 mg Oral Tablet - take 1 tablet by ORAL route every 12 hours for 10 days; 20 tablet. Zofran 4 mg Oral Tablet - take 1 tablet by ORAL route every 12 hours As needed; 20 tablet. Cipro 500 mg Oral Tablet - take 1 tablet by ORAL route every 12 hours for 7 days; 14 tablet. - Medication Reconciliation Form, Thank You Letter, Antibiotic Education, Prescription Opioid Use, Work release form form. - Follow up: Private Physician; When: 2 - 3 days; Reason: Recheck today's complaints, Continuance of care, Re-evaluation by your physician. Follow up: Rehana Lieberman MD; When: 2 - 3 days; Reason: Recheck today's complaints, Re-evaluation by your physician. - Problem is new. - Symptoms have improved. Signatures: Dispatcher [employer] EDFern Fowler RN RN aj1 Talon Whitt MD MD cha Attema, Lee, RN RN la1 Jeromy Gunn RN RN tr5 Corrections: (The following items were deleted from the chart) 14:37 13:59 06/19/2019 13:59 Discharged to Home. Impression: Abdominal tenderness; Vomiting. la1 Condition is Stable. Forms are Medication Reconciliation Form, Thank You Letter, Antibiotic Education, Prescription Opioid Use. Follow up: Private Physician; When: 2 - 3 days; Reason: Recheck today's complaints, Continuance of care, Re-evaluation by your physician. Follow up: Rehana Lieberman; When: 2 - 3 days; Reason: Recheck today's complaints, Re-evaluation by your physician. Problem is new. Symptoms have improved. sin
[2019-06-19 19:36] VITALS: TEMP 98.2
[2019-06-19 19:38] VITALS: BP 145/79; O2SAT 98
== END 2019-06-19 14:37 | disposition home or self-care (01) ==
LOC: ER 11:07
DX: R11.10 Vomiting, unspecified (principal); I10 Essential (primary) hypertension; Z72.0 Tobacco use
CPT/HCPCS: 36415; 74177; 76705; 80048; 80076; 83690; 85025; 96374; 96375; 99285; J2405; Q9967

== ENCOUNTER 2019-07-28 18:54 | Emergency (ER) | payer OTHER ==
[2019-07-28] MEDS ORDERED: ACETAMINOPHEN 500 MG TAB ONE (20:21)
[2019-07-28] MEDS ORDERED: DIPHENHYDRAMINE 50 MG/ML VIAL ONE (20:21)
[2019-07-28] MEDS ORDERED: dexAMETHasone 10 MG/ML VIAL ONE (20:21)
[2019-07-28] MEDS ORDERED: NA CHLORIDE 0.9% 1,000 ML ONE (20:21)
[2019-07-28] MEDS ORDERED: METOCLOPRAMIDE 10 MG/2mL INJ ONE (20:21)
--- NOTE | 2019-07-28 20:29 | RAD REPORT ---
EXAM DESCRIPTION: CT - [id number] - 07/28/2019 8:07 pm CLINICAL HISTORY: Head trauma, sleepiness, somnolence COMPARISON: None. TECHNIQUE: Axial 5 mm thick images of the head were obtained. Axial 2 mm thick images of the cervic al spine were obtained with sagittal and coronal reconstruction images generated and reviewed. All CT scans are performed using dose optimization technique as appropriate and may include automated exposure control or mA/KV adjustment according to patient size. FINDINGS: No intracranial hemorrhage, mass, edema or acute intracranial finding. No suspicion for acute infarct ion. No extra-axial fluid collections. Mastoid air cells and paranasal sinuses are clear. No globe or orbit abnormality seen. Cervical body height and alignment are normal. No disk space narrowing. No fracture or acute bony abn ormality. No paraspinal mass or hematoma. IMPRESSION: Negative CT head examination for acute or significant finding. Negative CT cervical spine examination for acute or significant finding.
--- NOTE | 2019-07-28 20:31 | RAD REPORT ---
EXAM DESCRIPTION: RAD - Wrist Left 3 View - 07/28/2019 8:07 pm CLINICAL HISTORY: Wrist pain, trauma COMPARISON: None. FINDINGS: No fracture is identified. There is no dislocation or periosteal reaction noted. No foreig n body or other soft tissue abnormality. IMPRESSION: Negative left wrist examination.
[2019-07-28 20:43] LABS: Absolute Lymphocytes (CBC) 2.3 K/uL (0.7-4.9); Basophils % 0.9 % (0-1.3); Hematocrit 42.4 % (39.6-49.0); Lymphocytes % 32.3 % (15.3-44.8); MPV 9.7 fL (7.6-11.3); RBC Red Blood Cell Count 4.94 M/uL (4.33-5.43)
[2019-07-28 20:53] LABS: Albumin 3.5 g/dL (3.4-5.0); Bilirubin Total 0.5 mg/dL (0.2-1.0); Protein, Total 6.5 g/dL (6.4-8.2)
[2019-07-28 20:59] LABS: Barbiturates NEGATIVE (NEGATIVE); Benzodiazepines NEGATIVE (NEGATIVE); Cocaine NEGATIVE (NEGATIVE); METHAMPHETAM NEGATIVE (NEGATIVE); Methadone NEGATIVE (NEGATIVE); Opiates NEGATIVE (NEGATIVE); Phencyclidine NEGATIVE (NEGATIVE); THC Cannibis POSITIVE (NEGATIVE)
[2019-07-28 21:01] LABS: Urine Bacteria <20 /HPF (NONE SEEN); Urine Culture Reflex Order NOT NEEDED; Urine Mucus 1+ /HPF (NONE SEEN); Urine RBC <5 /HPF (NONE SEEN)
[2019-07-28 21:02] LABS: Urine Blood NEGATIVE (NEG); Urine Glucose NEGATIVE (NEG); Urine Protein NEGATIVE (NEG); Urine Specific Gravity 1.025 (1.005-1.030); Urine pH 5.5 (5.0-7.0)
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
[2019-07-28] MEDS ORDERED: KETOROLAC 30 MG/ML INJ ONE (21:30)
[2019-07-28 23:09] VITALS: TEMP 98.2
[2019-07-28 23:10] VITALS: BP 141/89; O2SAT 99
== END 2019-07-28 21:56 | disposition home or self-care (01) ==
LOC: ER 18:54
DX: S09.90XA Unspecified injury of head, initial encounter (principal); W22.8XXA Striking against or struck by other objects, initial encounter; Y93.89 Activity, other specified; Y92.828 Other wilderness area as the place of occurrence of the external cause; I10 Essential (primary) hypertension
CPT/HCPCS: 96361; 85025; 36415; 80307 ×8; 80053; 70450; 72125; 73110; 96375; 96374; 99284; J2765; J1200; J1100; J7030; 81003; 81015

== ENCOUNTER 2020-02-23 14:24 | Emergency (ER) | payer OTHER ==
[2020-02-23] MEDS ORDERED: ONDANSETRON 4 MG/2 ML VIAL ONE ×2 (17:45→20:09)
[2020-02-23] MEDS ORDERED: NA CHLORIDE 0.9% 1,000 ML ONE ×2 (17:46→19:00)
--- OUTSIDE RECORDS SUMMARY | 2020-02-23 17:52 | XMS REPORT ---
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), combined type Problem Migraine without aura and without G43.009 Active status migrainosus, not intractable Problem Tobacco use disorder F17.200 Active Problem GERD without esophagitis K21.9 Act vince Assessment Fever, unspecified R50.9 Active Assessment Nausea R11.0 Active Problem Pain in right knee M25.561 Active Assessment Diarrhea, unspecified type R19.7 A ctive Problem Depression with anxiety F41.8 Acti ve Medications Medication Code Code Instructions Start End Status Dosage System Date Date Zofran [facility] 96009348069 8 MG Orally Active 1 tablet Once a day PRN as needed Nausea Adderall XR ND 94230288197 20 MG Orally Active 1 c apsule Once a day in the morning Omeprazole ND 14857648656 40 MG Orally Active 1 ca psule Once a day 30 minutes before morning meal Dicyclomine HCl ND 14857611823 20 MG Orally Active 1 tablet PRN Losartan ND 71467623607 50-12.5 MG Active 1 tablet Potassium-HCTZ Orally Once a day Hydrocodone-Acet ND 17980178299 5-325 MG Orally Act vince 1 tablet aminophen PRN as needed Promethazine HCl ND 66790446888 25 mg Orally NovemberDecember 12, Active 1 tablet every 6-8 hrs 2019 as needed for n/v Results No Known Results Summary Purpose eClinicalWorks Submission
--- OUTSIDE RECORDS SUMMARY | 2020-02-23 17:52 | XMS REPORT ---
:1980 Author Organization eClinicalWorks Care Team Providers Name Role Phone Sawyer Patrick Provider Role Unavailable Allergies, Adverse Reactions, Alerts Substance Reaction Event Type N.K.D.A. Info Not Available Non Drug Allergy Problems Problem Type Condition Code Onset Dates [...] GERD without esophagitis K21.9 Act vince Assessment Pain, joint, knee, right M25.561 Act vince Problem Pain in right knee M25.561 Active Assessment Primary osteoarthritis of right M17.11 Active knee Problem Depression with anxiety F41.8 Acti ve Medications Medication Code Code Instructions Start End Status Dosage System Date Date Dicyclomine HCl ND 80112704211 20 MG Orally PRN Act vince 1 tablet Hydrocodone-[place] ND 83560971991 5-325 MG Orally Acti ve 1 tablet taminophen PRN as needed Zofran ND 32561600218 8 MG Orally Once Active 1 t ablet a day PRN Nausea as need ed Losartan ND 72191897564 50-12.5 MG Active 1 tablet Potassium-HCTZ Orally Once a day Adderall XR [facility] 42400314995 20 MG Orally Active 1 c apsule Once a day in the morning Omeprazole ND 41730352112 40 MG Orally Active 1 ca psule Once a day 30 minutes before morning meal Results No Known Results Summary Purpose eClinicalWorks Submission
--- OUTSIDE RECORDS SUMMARY | 2020-02-23 17:52 | XMS REPORT | Continuity of Care Document ---
:1980 Author Organization [facility] t Address [address] [place] [address] [address] [place] [address] Care Team Providers Name Role Phone Asked, Pcp Primary Care Physician Unavailable Sintia Hooks Attending Clinician MONAE Attending Clinician Unavailable BENJA Attending Clinician Unavailable MARCIAL Attending Clinician Unavailable TAMMY Attending Clinician Unavailable KESHIA Attending Clinician Unavailable GONZALEZ Attending Clinician Unavailable BRADLEY Attending Clinician Unavailable Problems Condition Condition Condition Status Onset Resolution Last Treating Co mments Source Name Details Category Date Date Treatment Clinician Date Syncope Syncope Disease Active 2017-08 [facility] 0-14 Methodi 00:00: st 00 Mild Mild Problem Active [facility] intermitte intermitte Bernice kes - nt asthma nt asthma David katarzyna with with l allergic allergic Outpat i rhinitis, rhinitis, ent unspecifie unspecifie Cl inics d whether d whether complicate complicate d d Hypertensi Hypertensi Problem Active [facility] on, on, [facility] - unspecifie unspecifie Me moria d type d type l Outpati ent Clinics Non-season Non-season Problem Active [facility] al al [facility] - allergic allergic Memori a rhinitis, rhinitis, l unspecifie unspecifie Ou tpati d trigger d trigger ent Clinics Mixed Mixed Problem Active [facility] hyperlipid hyperlipid Bernice kes - emia emia Memoria l Outpati ent Clinics Other Other Problem Active [facility] chronic chronic [facility] - pain pain Memoria l Outpati ent Clinics Primary Primary Problem Active [facility] osteoarthr osteoarthr Bernice kes - itis of itis of Memoria right knee right knee l Outpati ent Clinics Attention Attention Problem Active [facility] deficit deficit [facility] - hyperactiv hyperactiv Me moria ity ity l disorder disorder Outpat i (ADHD), (ADHD), 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 Migraine Migraine Problem Active [facility] without without [facility] - aura and aura and Memori a without without l status status Outpati migrainosu migrainosu en t s, not s, not Clinics intractabl intractabl e e Tobacco Tobacco Problem Active [facility] use use [facility] - disorder disorder Memori a l Outpati ent Clinics GERD GERD Problem Active [facility] without without [facility] - esophagiti esophagiti Me moria s s l Outpati ent Clinics Pain in Pain in Problem Active [facility] right knee right knee Bernice kes - Memoria l Outpati ent Clinics Depression Depression Problem Active [facility] with with [facility] - anxiety anxiety Memoria l Outpati ent Clinics Cubital Cubital Problem Active Univers tunnel tunnel ity of syndrome syndrome [place] on right on right Physic i ans History of History of Problem Resolve Univers essential essential d ity of hypertens[place]ens[place] on Physici ans Carpal Carpal Problem Active Univers tunnel tunnel ity of syndrome syndrome [place] of right of right Physic i wrist wrist ans Benign Benign Problem Active Univers essential essential ity of HTN HTN [place] Physici ans Obstructiv Obstructiv Problem Active U nivers e sleep e sleep ity of apnea, apnea, [place] adult adult Physici ans Migraine Migraine Problem Active Unive rs headache headache ity of [place] Physici ans Chronic Chronic Problem Active Univers GERD GERD ity of [place] Physici ans History of History of Problem Resolve Univers arthritis arthritis d ity of [place] Physici ans History of History of Problem Resolve Univers asthma asthma d ity of [place] Physici ans History of History of Problem Resolve Univers back pain back pain d ity of [place] Physici ans History of History of Problem Resolve Univers Infection Infection d ity of of skin of skin [place] and and Physici subcutaneo subcutaneo an s us tissue us tissue due to due to fungus fungus Acute pain Acute pain Problem Active U nivers of right of right ity of knee knee [place] Physici ans History of History of Problem Resolve Univers viral viral d ity of gastroente gastroente [place] ritis ritis Physici ans Acute Acute Problem Active Univers pharyngiti pharyngiti it y of s s [place] Physici ans Cyclical Cyclical Problem Active Unive rs vomiting vomiting ity of [place] Physici ans Allergies, Adverse Reactions, Alerts Allergy Allergy Status Severity Reaction(s) Onset Inactive Treating Comm ents Source Name Type Date Date Clinician Acetamin drug Active Headache Univer s ophen allergy ity of TABS [place] Physici ans Family History Family Member Diagnosis Comments Start Date Stop Date Source natural son Family history of Univer sity of asthma [place] Physicia ns Mother Family history of Univers ity of multiple sclerosis [place] [facility] Father Family history of Univers ity of Knee pain [place] Physicia ns Unknown Family history of Family History Uni versity of Family Member diabetes mellitus [place] [facility] Unknown Family history of Family History Uni versity of Family Member Heart trouble [place] Ph ysicians Unknown Family history of Family History Uni versity of Family Member hypertension [place] Phy sicians Unknown Family history of Family History Uni versity of Family Member arthritis [place] Physi cians Unknown Family history of Family History Uni versity of Family Member malignant neoplasm Norber[place] as Physicians Unknown Family history of Family History Uni versity of Family Member cerebrovascular [place] [facility]icians accident (CVA) Social History Social Habit Start Date Stop Date Quantity Comments Source Sex Assigned At [facility] M ethodist Alcohol intake 2018-05-25 2018-05-25 [facility] non-drinker of alcohol (finding) History of 2018-04-25 Current smoker [facility] tobacco use 00:00:00 Smoking Status Start Date Stop Date Source Former smoker 2018-05-25 00:00:00 2018-05-25 00:00:00 [facility] Medications Ordered Filled Start Stop Current Ordering Indication Dosage Frequency Signature Comments Components Source Medication Medication Date Date Medication? Clinician (SIG) Name Name Promethazin Promethazin 2019-0 2020- Yes Norah [address] [facility] [facility] e HCl e HCl 4-28 05-03 [place] as needed [facility] - 00:00: 00:00 for n/v Memoria 00 :00 l Outpati ent Clinics SUMAtriptan SUMAtriptan Yes POURAN inject PRN Univers Succinate 6 Succinate 6 2-21 BENJA onset of ity of MG/0.5ML MG/0.5ML 00:00: MKimberly the [place] Subcutaneou Subcutaneou 00 cluster Physici s Solution s Solution headaches, ans Auto-inject Auto-inject may repeat or or in 2 h, if headache persists. Ondansetron Ondansetron 2017-08 Yes JERNAE 1 Take 1 Univers HCl - 4 MG HCl - 4 MG 2-11 BIJOU N.P. tablet ity of Oral Tablet Oral Tablet 00:00: every 6 [place] 00 hours prn Physici for nausea ans Omeprazole Omeprazole 2017-08 Yes JERNAE 1 QD TAKE 1 Univers 40 MG Oral 40 MG Oral 2-04 BIJOU N.P. CAPSULE ity of Capsule Capsule 00:00: DAILY [place] Delayed Delayed 00 Physici Release Release ans amLODIPine amLODIPine 2017-08 Yes POURAN 1 QD TAKE 1 Univers Besylate 10 Besylate 10 0-23 BENJA TABLET ity of MG Oral MG Oral 00:00: M.D. DAILY. [place] Tablet Tablet 00 Physici ans amLODIPine 2017-08- No 10mg QD Take 1 [place] (NORVASC) 0-15 10-15 tablet (10 Met hodi 10 mg 00:00: 23:59 mg total) st tablet 00 :00 by mouth daily. atorvastati 2017-08- No 10mg QD Take 1 Michelle ston n (LIPITOR) 0-15 10-15 tablet (10 M ethodi 10 MG 00:00: 23:59 mg total) st tablet 00 :00 by mouth daily. Zofran Zofran Yes Norah 1 tablet [facility] [place] as [facility] Losartan Losartan Yes Norah [address] Potassium-H Potassium-H [place] [facility] - CTZ CTZ Memoria l [facility] Hydrocodone Hydrocodone Yes Norah [address] -Acetaminop -Acetaminop [place] as needed [facility] Adderall XR Adderall XR Yes Norah [address] [facility] [place] in the [facility] - morning [facility] Omeprazole Omeprazole Yes Norah [address] [facility] [facility] [place] 30 minutes [facility] - before Memoria morning l meal [facility] Dicyclomine Dicyclomine Yes Norah [address] HCl HCl [place] [facility] Immunizations Ordered Immunization Filled Immunization Date Status Commen ts Source Name Name Fluzone Quadrivalent 2018-06-03 Completed Univ ersity of 0.5 ML Intramuscular 14:35:00 [place] Suspension Vital Signs Vital Name Observation Time Observation Value Comments Source BP Systolic 2018-10-02 155 mm[Hg] Location: [facility] :: Position: [place] Physician s Sitting BP Diastolic 2018-10-02 88 mm[Hg] Location: [facility] ::00 Position: [place] Physician s Sitting Height 2018-10-02 75 [in_us] [facility] :: [place] Physician s Weight 2018-10-02 302 [lb_av] [facility] :: [place] Physician s Body Mass Index 2018-10-02 37.75 kg/m2 University o f Calculated 15::00 [place] Physician s Temperature 2018-10-02 98 [degF] Method: Oral [facility] :: [place] Physician s Heart Rate 2018-10-02 63 /min Location: [facility] :: Apical; [place] Physician s BP Systolic 2018-09-25 154 mm[Hg] Location: [facility] :: Position: [place] Physician s Sitting BP Diastolic 2018-09-25 98 mm[Hg] Location: [facility] ::00 Position: [place] Physician s Sitting Heart Rate 2018-09-25 70 /min Quality: Normal University o f 10::00 [place] Physician s BP Systolic 2018-09-25 169 mm[Hg] Location: [facility] ::00 Position: [place] Physician s Sitting BP Diastolic 2018-09-25 65 mm[Hg] Location: [facility] ::00 Position: [place] Physician s Sitting Heart Rate 2018-09-25 67 /min Quality: Normal University o f 10:25:00 [place] Physician s Height 2018-09-25 75 [in_us] University of ::00 [place] Physician s Weight 2018-09-25 295 [lb_av] University of :: [place] Physician s Body Mass Index 2018-09-25 36.87 kg/m2 University o f Calculated :25:00 [place] Physician s Temperature 2018-09-25 98.3 [degF] Method: Oral [facility] of 10::00 [place] Physician s O2 SAT 2018-09-25 99 % University of ::00 [place] Physician s BP Systolic 2018-06-03 136 mm[Hg] Location: [facility] :: Position: [place] Physician s Sitting BP Diastolic 2018-06-03 75 mm[Hg] Location: [facility] :: Position: [place] Physician s Sitting Height 2018-06-03 75 [in_us] [facility] 14:09:00 [place] Physician s Weight 2018-06-03 317 [lb_av] [facility] ::00 [place] Physician s Body Mass Index 2018-06-03 39.62 kg/m2 University o f Calculated 14:: [place] Physician s Temperature 2018-06-03 97.9 [degF] Method: Oral [facility] ::00 [place] Physician s Heart Rate 2018-06-03 74 /min [facility] :: [place] Physician s Procedures Procedure Date / Time Performing Clinician Source Performed [U] XRAY KNEE 4 OR MORE 2018-07-24 00:00:00 [facility] VWS RIGHT [id number] Physicians Emg/Ncv 2018-06-20 00:00:00 [facility] o f [place] Physicians [facility] Sleep Lab - Sleep 2018-06-03 00:00:00 [facility] Study Split Night Physicians History of Cubital tunnel [facility] repair Physicians History of Appendectomy [facility] Physicians History of Wrist surgery [facility] Physicians History of [facility] xa Hemorrhoidectomy Physicians Plan of Care Planned Activity Planned Date Details Comments Source Future Scheduled 2020-03-12 INFLUENZA VACCINE [place] [facility] Test 00:00:00 [code = INFLUENZA VACCINE] Diagnostic Test 2018-06-20 Emg/Ncv [code = [facility] [place] Pending 00:00:00 Emg/Ncv] Physicians Diagnostic Test 2018-06-20 Emg/Ncv [code = [facility] [place] Pending 00:00:00 Emg/Ncv] Physicians Encounters Start End Encounter Admission Attending Care Care Encounter Source Date/Time Date/Time Type Type Clinicians Facility Department ID 2019-12-10 2019-12-10 Outpatient Daniel Shirley [id number] [facility] [address] 15[facility]39[facility] Medicine Outpati ent Clinics 2019-12-08 2019-12-08 Outpatient Daniel Shirley [id number] [address] 13:40:00 13:40:00 t [facility] ent [facility] 2019-12-07 2019-12-07 [facility] [id number] [address] 12:05:00 12:05:00 t [facility] ent [facility] 2019-11-16 2019-11-16 [facility] [id number] [address] 11:00:00 11:00:00 [facility] 2019-10-21 2019-10-21 Emergency Blaire Guevara [facility] [id number] 11:24:16 14:51:00 Sintia Armstrong [id number] [place] [id number] [place] [id number] 2019-09-29 2019-09-29 [facility] [id number] 09:21:00 09:21:00 t [facility] ent [facility] 2019-09-21 2019-09-21 [facility] [id number] 14:00:00 14:00:00 t [facility] ent Clinics 2019-03-13 2019-03-13 Appointmen EUNICE LICONA [facility] [id number] Univers 09:00:00 09:00:00 t; Lesa RODRIGUEZ it y Mirna LICONA Physici M.D. ans 2018-10-02 2018-10-02 Appointmen EUNICE YOUSIF [place] [id number] Univers 15:00:00 15:00:00 t; Asher JONES M.D. [place] POURAN, Physici M.D. ans 2018-09-25 2018-09-25 Appointmen EUNICE CEJA [facility] [id number] Univers 10:30:00 10:30:00 t; BRANT CEJA NP Health and ity SHANE GUO [facility] Valery Scott ans 2018-09-22 2018-09-22 [facility] [place]a [id number] Univers 15:30:00 15:30:00 t; Asher JONES M.D. [place] Valery JONES M.D. ans 2018-08-22 2018-08-22 [facility] [id number] Univers 09:30:00 09:30:00 t; Lesa BRYANT y of [place], [place] Valery BRYANT M.D. ans 2018-07-29 2018-07-29 [facility] [id number] Univers 14:30:00 14:30:00 t; Lesa BRYANT [place], [place] Valery BRYANT M.D. ans 2018-07-25 2018-07-[id number] Univers 10:30:00 10:30:00 t; Lesa BRITT [place], [place] Valery BRITT M.D. ans 2018-07-22 2018-[facility] [id number] Univers 11:15:00 11:15:00 t; Lesa [facility]ANT [facility] [place] as Valery BRYANT M.D. ans 2018-07-15 2018-07-[facility] [id number] Univers 10:30:00 10:30:00 t; Lesa BRYANT [facility], Orthopedics Norberto as Valery BRYANT M.D. ans 2018-07-09 2018-07-[facility] [id number] Univers 13:00:00 13:00:00 t; Lesa BRYANT [place], [place] Valery BRYANT M.D. ans 2018-06-30 2018-06-30 [facility]oint[facility] [id number] Univers 10:15:00 10:15:00 t; [facility], Orthopedics Norberto as Valery BRYANT M.D. ans 2018-06-20 2018-06-20 Appointmen [facility] [id number] Univers 13:40:00 13:40:00 t; SHANE MONROE [facility] ty of GONZALEZ, Orthopedics T su MONROE NP Physi ci ans 2018-06-19 2018-06-19 Appoint[facility] [id number] Univers 08:15:00 08:15:00 t; SERJIO HUERTA D.O. ity [place], [place] Clarissa Physici ans 2018-06-17 2018-06-17 [facility] [id number] Univers 15:45:00 15:45:00 t; Lesa BRYANT [facility] narayan [facility] Orthopedics Nor[place]to as Val[place] BRYANT M.D. ans 2018-06-03 2018-06-03 [facility] [id number] Univers 13:45:00 13:45:00 t; SERJIO HUERTA [place] ity [place], [place] Clarissa Physici ans Results Test Description Test Time Test Comments Results Result Sour e Comments [U] XRAY ELBOW 2 2018-06-17 Images Universi ty of VWS RIGHT [id number] 15:57:00 acquired, not [place] reported on Physicians this accession number. [U] XRAY WRIST 2018-06-17 Images University of MIN 3 VWS RIGHT 15:57:00 acquired, not [place] [id number] reported on Physicians this accession number.
--- OUTSIDE RECORDS SUMMARY | 2020-02-23 17:52 | XMS REPORT ---
:1980 Author Organization eClinicalWorks Care Team Providers Name Role Phone John Vazquez Provider Role Unavailable Allergies No Known Allergies Problems Problem Type Condition Code Onset Dates Condition Statu s Problem Mild intermittent asthma with J45.20 Active allergic rhinitis, unspecified whether complicated Problem Hypertension, unspecified type I10 Active Problem Non-seasonal allergic rhinitis, J30.89 Active unspecified trigger Problem Pain in right knee M25.561 Active Problem Depression with anxiety F41.8 Acti ve Problem Mixed hyperlipidemia E78.2 Active Problem Other chronic pain G89.29 Active Problem Primary osteoarthritis of right M17.11 Active knee Problem 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
--- OUTSIDE RECORDS SUMMARY | 2020-02-23 17:52 | XMS REPORT | Clinical Summary ---
:1980 Author Organization [employer] Address [address] [place] [address] Care Team Providers Name Role Phone Asked, No Pcp Primary Care Provider Unavailable Allergies No Known Allergies Medications Medication Sig Dispensed Refills Start Date End Date Status amLODIPine (NORVASC) Take 1 tablet 30 tablet 0 05/26/201805/12 10 mg tablet (10 mg total) by mouth daily. atorvastatin (LIPITOR) Take 1 tablet 30 tablet 0 05/26/2018 10 MG tablet (10 mg total) by mouth daily. Active Problems Problem Noted Date Syncope 05/25/2018 Social History Tobacco Use Types Packs/Day Years Used Date Former Smoker Cigarettes Quit: 04/25/20 18 Smokeless Tobacco: Never Used Alcohol Use Drinks/Week oz/Week Comments No Sex Assigned at Date Recorded Not on file Job Start Date Occupation Industry Not on file Not on file Not on file Travel History Travel Start Travel End No recent travel history available. Last Filed Vital Signs Not on file Plan of Treatment Health Maintenance Due Date Last Done Comments INFLUENZA VACCINE 03/12/2020 Results Not on fileafter 02/22/2019 Advance Directives For more information, please contact: [phone] Type Date Recorded Patient Engineer Remote Control Diesel Explanati on Advance Directives, Living 05/25/2018 10:46 AM Will and Medical Power of Manager Medical Affairs
--- OUTSIDE RECORDS SUMMARY | 2020-02-23 17:52 | XMS REPORT ---
[...] Medications Results No Known Results Summary Purpose eClinicalProteoMediX Submission
[2020-02-23 18:15] LABS: Absolute Lymphocytes (CBC) 1.3 K/uL (0.7-4.9); Basophils % 0.6 % (0-1.3); Hematocrit 45.9 % (39.6-49.0); Lymphocytes % 10.9 % (15.3-44.8); MPV 9.5 fL (7.6-11.3); RBC Red Blood Cell Count 5.34 M/uL (4.33-5.43)
--- NOTE | 2020-02-23 18:22 | RAD REPORT ---
EXAM DESCRIPTION: CT - Head Brain Wo Cont - 02/23/2020 6:02 pm CLINICAL HISTORY: Headache COMPARISON: 2019 TECHNIQUE: Computed axial tomography of the head was obtained. IV contrast was not requested. All CT scans are performed using dose optimization technique as appropriate and may include automated exposure control or mA/KV adjustment according to patient size. FINDINGS: An intracranial bleed is not seen . The ventricles are normal in caliber. No extra-axial fluid collection is noted. Fluid within the sinuses/ mastoids is not seen. IMPRESSION: No acute intracranial abnormality is seen. If patient's symptoms persist MRI of the bra in would be recommended.
--- NOTE | 2020-02-23 18:23 | RAD REPORT ---
EXAM DESCRIPTION: Audie Single View02/23/2020 6:09 pm CLINICAL HISTORY: cough COMPARISON: none FINDINGS: The lungs appear clear of acute infiltrate. The heart is normal size IMPRESSION: No acute abnormalities displayed
[2020-02-23 18:26] LABS: Albumin 3.9 g/dL (3.4-5.0); Bilirubin Total 1.2 mg/dL (0.2-1.0); Potassium 4.2 mmol/L (3.5-5.1); Protein, Total 7.3 g/dL (6.4-8.2)
--- NOTE | 2020-02-23 18:43 | ER ---
Nurse's Notes [facility] Name: Terry Akins Sr Age: 39 yrs Sex: Male : 1980 Arrival Date: 02/23/2020 Time: 14:28 Bed 8 Private MD: Diagnosis: Headache;Vomiting;Diarrhea, unspecified Presentation: 02/22 14:41 Chief complaint: Patient states: Abdominal pain with nausea and ADAMSON's for 1 week. Cough ll1 for 2 days. N/V/D since yesterday. Coronavirus screen: Surgical mask placed on patient. Patient moved to private room, placed in contact and droplet isolation with eye protection until further assessment. Patient reports a cough. Patient reports shortness of breath or difficulty breathing. Patient denies measured and/or subjective temperature greater than 100.4F prior to today's visit. Patient denies travel on a cruise ship or to a country the [facility] currently lists as an affected area. Patient reports contact with known and/or suspected case of COVID-19. Ebola Screen: Patient denies travel to an Ebola-affected area in the 21 days before illness onset. Initial Sepsis Screen: Does the patient meet any 2 criteria? No. Patient's initial sepsis screen is negative. Risk Assessment: Do you want to hurt yourself or someone else? Patient reports no desire to harm self or others. Onset of symptoms was February 16, 2020. 14:41 Method Of Arrival: Ambulatory ll1 14:41 Acuity: SARITHA 3 ll1 17:30 Initial Sepsis Screen: Does the patient have a suspected source of infection? No. aa5 Patient's initial sepsis screen is negative. Triage Assessment: 20:10 Headache History: Denies prior headaches. General: Appears comfortable. General: rv Behavior is calm, cooperative. Pain: Also complains of no other associated symptoms. Pain: Pain began suddenly. Historical: - Allergies: 14:43 No Known Allergies; ll1 - PMHx: 14:43 Hypertension; GERD; ll1 - PSHx: 14:43 Appendectomy; ll1 - Immunization history:: Flu vaccine is up to date. - Social history:: Smoking status: Patient reports the use of cigarette tobacco products, smokes one-half pack cigarettes per day, cigars, Patient uses alcohol, only on a social basis. Patient/guardian denies using street drugs. - Family history:: not pertinent. Screenin:40 Abuse screen: Denies threats or abuse. Nutritional screening: No deficits noted. aa5 Tuberculosis screening: No symptoms or risk factors identified. Fall Risk None identified. Assessment: 17:30 General: Appears uncomfortable, Behavior is calm, cooperative. Pain: Complains of pain aa5 in head, upper abdomen Pain does not radiate. Pain currently is 10 out of 10 on a pain scale. Quality of pain is described as sharp, Is continuous. Neuro: Level of Consciousness is awake, alert, obeys commands, Oriented to person, place, time, situation. Cardiovascular: Heart tones S1 S2 present Rhythm is regular. Respiratory: Reports cough Airway is patent Respiratory effort is even, unlabored, Respiratory pattern is regular, symmetrical, Denies shortness of breath. GI: Abdomen is round Bowel sounds present X 4 quads. Abd is soft and non tender X 4 quads. Reports diarrhea, nausea, vomited blood x 3-4 hrs [employer]. Patient currently denies bloody stool. : No signs and/or symptoms were reported regarding the genitourinary system. EENT: No signs and/or symptoms were reported regarding the EENT system. Derm: Skin is dry, Skin is normal, Skin temperature is warm. Musculoskeletal: Range of motion: intact in all extremities. 18:00 Reassessment: Pt taken to CT via wheelchair. . aa5 18:55 Neuro: Level of Consciousness is awake, alert, obeys commands, Oriented to person, aa5 place, time, situation. Respiratory: Airway is patent Respiratory effort is even, unlabored, Respiratory pattern is regular, symmetrical. Derm: Skin is dry, Skin is normal, Skin temperature is warm. 18:55 Pain: Pain currently is 10 out of 10 on a pain scale. aa5 19:30 Reassessment: Patient appears in no apparent distress at this time. Patient and/or mg2 family updated on plan of care and expected duration. Pain level reassessed. Patient is alert/active/playful, equal unlabored respirations, skin warm/dry/pink. Vital Signs: 14:41 BP 184 / 92; Pulse 82; Resp 19; Temp 98.6; Pulse Ox 97% ; Pain 10/10; ll1 17:55 BP 144 / 80; Pulse 61; Resp 20 S; Pulse Ox 98% on R/A; aa5 20:10 BP 135 / 80; Pulse 58; Resp 17; Temp 98.5; Pulse Ox 98% on R/A; rv Omar Coma Score: 18:03 Eye Response: spontaneous(4). Verbal Response: oriented(5). Motor Response: obeys sin commands(6). Total: 15. ED Course: 14:28 Patient arrived in ED. bp1 14:43 Triage completed. ll1 14:44 Arm band placed on Patient notified of wait time. ll1 17:22 Rain Mann RN is Primary Nurse. aa5 17:29 Talon Whitt MD is Attending Physician. sin 17:30 Patient has correct armband on for positive identification. Placed in gown. Bed in low aa5 position. Call light in reach. Side rails up X2. 17:45 COVID-19 and flu swabs collected and sent to lab. aa5 17:55 Initial lab(s) drawn, by de, sent to lab. Inserted saline lock: 20 gauge in left aa5 antecubital area, using aseptic technique. Blood collected. 18:02 CT Head Brain wo Cont In Process Unspecified. EDMS 18:09 Chest Single View XRAY In Process Unspecified. EDMS 19:00 Report given to BRYN Mahan. aa5 20:09 No provider procedures requiring assistance completed. IV discontinued, intact, rv bleeding controlled, No redness/swelling at site. Pressure dressing applied. Administered Medications: 17:55 Drug: NS 0.9% 1000 ml Route: IV; Rate: 1 bolus; Site: left antecubital; aa5 19:37 Follow up: Response: No adverse reaction; IV Status: Completed infusion; IV Intake: mg2 1000ml 17:55 Drug: Zofran (Ondansetron) 4 mg Route: IVP; Site: left antecubital; aa5 18:20 Follow up: Response: No adverse reaction aa5 18:55 Drug: NS 0.9% 1000 ml Route: IV; Rate: 1 bolus; Site: left antecubital; aa5 20:09 Follow up: IV Status: Completed infusion; IV Intake: 1000ml rv 20:17 Follow up: Response: No adverse reaction mg2 18:55 Drug: TORadol 30 mg Route: IVP; Site: left antecubital; aa5 19:37 Follow up: Response: No adverse reaction mg2 20:09 Drug: Zofran (Ondansetron) 4 mg Route: IVP; Site: left antecubital; rv 20:09 Follow up: Response: No adverse reaction rv Intake: 19:37 IV: 1000ml; Total: 1000ml. mg2 20:09 IV: 1000ml; Total: 2000ml. rv Outcome: 18:43 Discharge ordered by . sin 20:10 Discharged to home ambulatory. rv 20:10 Condition: good 20:10 Discharge instructions given to patient, Instructed on discharge instructions, follow up and referral plans. medication usage, Demonstrated understanding of instructions, follow-up care, medications, Prescriptions given X 3. 20:11 Patient left the ED. rv Addendum: 02/29/2020 13:36 Addendum: COVID-19 Result: Negative result given to RN to notify pt. Contacted by: too Montelongo RN. Notified pt of negative COVID 19 swab results. Pt advised that even with a negative test result they should remain in isolation until symptom free for 3 days without medication. Pt also advised to return to the ED for worsening symptoms. Signatures: Dispatcher [employer] EDMS Xochitl Stack RN RN dmTalon Reardon MD MD cha Calderon, Audri RN RN aa5 Negrito Senior RN RN mg2 Sacha Lieberman RN RN rv Lewis, Lynsay, RN RN ll1 Yara Reddy [facility] Corrections: (The following items were deleted from the chart) 02/22 18:00 17:59 BP 144 / 80; mary aa5
--- NOTE | 2020-02-23 18:44 | EDPHYS ---
Physician Documentation [facility] Name: Terry Akins Sr Age: 39 yrs Sex: Male : 1980 Arrival Date: 02/23/2020 Time: 14:28 Bed 8 Private MD: NIKOLAS Physician Talon Whitt HPI: 02/22 18:01 This 39 yrs old Black Male presents to ER via Ambulatory with complaints of Headache, sin Nausea/Vomiting. 18:01 The patient complains of pain to the top of head, forehead, left frontal area, left sin side of the back of head, left occipital area, left base of the skull, right frontal area, right side of the back of head, right occipital area and right base of the skull. The patient describes the headache as aching. Onset: The symptoms/episode began/occurred 2 day(s) ago. Associated signs and symptoms: Pertinent positives: nausea, vomiting. Severity of symptoms: At its worst the pain was mild, in the emergency department the pain is unchanged. Headache History: The patient has had previous headaches and this one is similar to previous episodes. The symptoms are alleviated by nothing. the symptoms are aggravated by nothing. The patient has not experienced similar symptoms in the past. Historical: - Allergies: 14:43 No Known Allergies; ll1 - PMHx: 14:43 Hypertension; GERD; ll1 - PSHx: 14:43 Appendectomy; ll1 - Immunization history:: Flu vaccine is up to date. - Social history:: Smoking status: Patient reports the use of cigarette tobacco products, smokes one-half pack cigarettes per day, cigars, Patient uses alcohol, only on a social basis. Patient/guardian denies using street drugs. - Family history:: not pertinent. ROS: 18:02 Constitutional: Negative for fever, chills, and weight loss, Eyes: Negative for injury, sin pain, redness, and discharge, ENT: Negative for injury, pain, and discharge, Neck: Negative for injury, pain, and swelling, Cardiovascular: Negative for chest pain, palpitations, and edema, Respiratory: Negative for shortness of breath, cough, wheezing, and pleuritic chest pain, Back: Negative for injury and pain, : Negative for injury, bleeding, discharge, and swelling, MS/Extremity: Negative for injury and deformity, Skin: Negative for injury, rash, and discoloration, Neuro: Negative for headache, weakness, numbness, tingling, and seizure, Psych: Negative for depression, anxiety, suicide ideation, homicidal ideation, and hallucinations, Allergy/Immunology: Negative for hives, rash, and allergies, Endocrine: Negative for neck swelling, polydipsia, polyuria, polyphagia, and marked weight changes, Hematologic/Lymphatic: Negative for swollen nodes, abnormal bleeding, and unusual bruising. 18:02 Abdomen/GI: Positive for abdominal pain, nausea and vomiting, diarrhea, abdominal cramps. Exam: 18:02 Constitutional: This is a well developed, well nourished patient who is awake, alert, sin and in no acute distress. Head/Face: Normocephalic, atraumatic. Eyes: Pupils equal round and reactive to light, extra-ocular motions intact. Lids and lashes normal. Conjunctiva and sclera are non-icteric and not injected. Cornea within normal limits. Periorbital areas with no swelling, redness, or edema. ENT: Nares patent. No nasal discharge, no septal abnormalities noted. Tympanic membranes are normal and external auditory canals are clear. Oropharynx with no redness, swelling, or masses, exudates, or evidence of obstruction, uvula midline. Mucous membranes moist. Neck: Trachea midline, no thyromegaly or masses palpated, and no cervical lymphadenopathy. Supple, full range of motion without nuchal rigidity, or vertebral point tenderness. No Meningismus. Chest/axilla: Normal chest wall appearance and motion. Nontender with no deformity. No lesions are appreciated. Cardiovascular: Regular rate and rhythm with a normal S1 and S2. No gallops, murmurs, or rubs. Normal PMI, no JVD. No pulse deficits. Respiratory: Lungs have equal breath sounds bilaterally, clear to auscultation and percussion. No rales, rhonchi or wheezes noted. No increased work of breathing, no retractions or nasal flaring. Abdomen/GI: Soft, non-tender, with normal bowel sounds. No distension or tympany. No guarding or rebound. No evidence of tenderness throughout. Back: No spinal tenderness. No costovertebral tenderness. Full range of motion. Male : Normal genitalia with no discharge or lesions. Skin: Warm, dry with normal turgor. Normal color with no rashes, no lesions, and no evidence of cellulitis. MS/ Extremity: Pulses equal, no cyanosis. Neurovascular intact. Full, normal range of motion. Neuro: Awake and alert, GCS 15, oriented to person, place, time, and situation. Cranial nerves II-XII grossly intact. Motor strength 5/5 in all extremities. Sensory grossly intact. Cerebellar exam normal. Normal gait. Psych: Awake, alert, with orientation to person, place and time. Behavior, mood, and affect are within normal limits. Vital Signs: 14:41 BP 184 / 92; Pulse 82; Resp 19; Temp 98.6; Pulse Ox 97% ; Pain 10/10; ll1 17:55 BP 144 / 80; Pulse 61; Resp 20 S; Pulse Ox 98% on R/A; aa5 20:10 BP 135 / 80; Pulse 58; Resp 17; Temp 98.5; Pulse Ox 98% on R/A; rv [place] Coma Score: 18:03 Eye Response: spontaneous(4). Verbal Response: oriented(5). Motor Response: obeys sin commands(6). Total: 15. MDM: 17:29 Patient medically screened. sin 18:03 Differential diagnosis: cluster headache, Nonspecific abd pain, gastritis, sin cholecystitis, pancreatitis, viral gastroenteritis, gastroenteritis, migraine. Data reviewed: vital signs, nurses notes, lab test result(s), radiologic studies. Data interpreted: laboratory monitor: rate is 61 beats/min, Pulse oximetry: on room air is 98 %. Test interpretation: by ED physician or midlevel provider: plain radiologic studies. Counseling: I had a detailed discussion with the patient and/or guardian regarding: the historical points, exam findings, and any diagnostic results supporting the discharge/admit diagnosis, lab results, radiology results, the need for outpatient follow up, for definitive care, a family practitioner. 18:41 ED course: pt much improved, positive po, will dc with Zofran 4 mg odt. [facility] 02/22 17:31 Order name: CBC with Diff; Complete Time: 18:30 [facility] 02/22 17:31 Order name: Comprehensive Metabolic Panel; Complete Time: 18:30 [facility] 02/22 17:31 Order name: COVID-19 [facility] 02/22 17:31 Order name: Influenza Screen (a \T\ B); Complete Time: 18:30 [facility] 02/22 17:31 Order name: Chest Single View XRAY; Complete Time: 18:30 [facility] 02/22 17:31 Order name: Lipase; Complete Time: 18:30 [facility] 02/22 17:31 Order name: CT Head Brain wo Cont; Complete Time: 18:30 [facility] Administered Medications: 17:55 Drug: NS 0.9% 1000 ml Route: IV; Rate: 1 bolus; Site: left antecubital; aa5 19:37 Follow up: Response: No adverse reaction; IV Status: Completed infusion; IV Intake: mg2 1000ml 17:55 Drug: Zofran (Ondansetron) 4 mg Route: IVP; Site: left antecubital; aa5 18:20 Follow up: Response: No adverse reaction aa5 18:55 Drug: NS 0.9% 1000 ml Route: IV; Rate: 1 bolus; Site: left antecubital; aa5 20:09 Follow up: IV Status: Completed infusion; IV Intake: 1000ml rv 20:17 Follow up: Response: No adverse reaction mg2 18:55 Drug: TORadol 30 mg Route: IVP; Site: left antecubital; aa5 19:37 Follow up: Response: No adverse reaction mg2 20:09 Drug: Zofran (Ondansetron) 4 mg Route: IVP; Site: left antecubital; rv 20:09 Follow up: Response: No adverse reaction rv Disposition: 02/23/20 18:43 Discharged to Home. Impression: Headache, Vomiting, Diarrhea, unspecified. - Condition is Stable. - Discharge Instructions: Diarrhea, Adult, General Headache Without Cause, Nausea and Vomiting, Adult, Nausea and Vomiting, Adult, [id number], Diarrhea, Adult, [id number], General Headache Without Cause, [id number]. - Prescriptions for Zofran 4 mg Oral Tablet - take 1 tablet by ORAL route every 12 hours As needed; 20 tablet. Fioricet with Codeine 50- 325-40-30 mg Oral capsule - take 1 capsule by ORAL route every 4 hours as needed not to exceed 6 capsules per 24hrs; 20 capsule. Pepcid 20 mg Oral Tablet - take 1 tablet by ORAL route every 12 hours for 10 days; 20 tablet. - Medication Reconciliation Form, Thank You Letter, Antibiotic Education, Prescription Opioid Use form. - Follow up: Private Physician; When: 2 - 3 days; Reason: Recheck today's complaints, Continuance of care, Re-evaluation by your physician. - Problem is new. - Symptoms have improved. Signatures: Dispatcher [employer] EDTalon Coker MD MD cha Calderon, Audri RN RN aa5 Negrito Senior RN RN mg2 Sacha Lieberman RN RN rv Anand Badillo RN RN ll1 Corrections: (The following items were deleted from the chart) 20:11 18:43 02/23/2020 18:43 Discharged to Home. Impression: Headache; Vomiting; Diarrhea, rv unspecified. Condition is Stable. Forms are Medication Reconciliation Form, Thank You Letter, Antibiotic Education, Prescription Opioid Use. Follow up: Private Physician; When: 2 - 3 days; Reason: Recheck today's complaints, Continuance of care, Re-evaluation by your physician. Problem is new. Symptoms have improved. sin
[2020-02-23] MEDS ORDERED: KETOROLAC 30 MG/ML INJ ONE (19:04)
[2020-02-23 20:19] VITALS: O2SAT 98
[2020-02-23 20:28] VITALS: BP 135/80; TEMP 98.5
== END 2020-02-23 20:11 | disposition home or self-care (01) ==
LOC: ER 14:24
DX: R11.10 Vomiting, unspecified (principal); Z20.828 Contact with and (suspected) exposure to other viral communicable diseases; R19.7 Diarrhea, unspecified; I10 Essential (primary) hypertension; F17.210 Nicotine dependence, cigarettes, uncomplicated
CPT/HCPCS: 96361; 85025; 36415; 83690; 80053; 87804 ×2; 70450; 71045; 96375; 96374; 99284; U0002; J7030 ×2; J2405 ×2

== ENCOUNTER 2020-06-05 22:02 | Emergency (ER) | payer OTHER ==
--- OUTSIDE RECORDS SUMMARY | 2020-06-05 22:04 | XMS REPORT | Clinical Summary ---
:1980 Author Organization [facility] Address [address] [place] [id number] Care Team Providers Name Role Phone Asked, No Pcp Primary Care Provider Unavailable Allergies No Known Active Allergies Medications No known medications Active Problems Problem Noted Date Syncope 05/25/2018 Surgical History Surgery Date Site/Laterality Comments APPENDECTOMY Social History Tobacco Use Types Packs/Day Years Used Date Former Smoker Cigarettes Quit: 04/25/20 18 Smokeless Tobacco: Never Used Alcohol Use Drinks/Week oz/Week Comments No Sex Assigned at Date Recorded Not on file Last Filed Vital Signs Not on file Plan of Treatment Health Maintenance Due Date Last Done Comments INFLUENZA VACCINE 03/12/2020 Results Not on fileafter 2019 Advance Directives For more information, please contact: [phone] Type Date Recorded Patient [employer] Explanati on Advance Directives, Living 05/25/2018 10:46 AM Will and Medical Power of Supervisor Blood
--- OUTSIDE RECORDS SUMMARY | 2020-06-05 22:05 | XMS REPORT | Continuity of Care Document ---
:1980 Author Organization [facility] t Address [address] [place] [address] Care Team Providers Name Role Phone Asked, [...] Clinician Date Syncope Syncope Disease Active 2017-08 Gracey 0-14 Methodi 00:00: st 00 Cubital Cubital Problem Active Univers tunnel tunnel [...] sleep e sleep ity of apnea, apnea, [place] adult adult Physici ans Migraine Migraine Problem Active Unive rs headache headache ity of [place] [facility] Chronic Chronic Problem Active Univers GERD GERD [facility] of [place] [facility] History of History of Problem Resolve Univers arthritis arthritis d ity of [place] [facility] ans History of History of Problem Resolve Univers asthma asthma d [facility]y of [place] [facility] ans History of History of Problem [...] History Uni versity of Family Member cerebrovascular [place] [facility] accident (CVA) Social History Social Habit Start Date Stop Date Quantity Comments Source Sex Assigned At [facility] ethodi Tobacco use and 2018-05-25 2018-05-25 Never used [facility] ethodi exposure 00:00:00 00:00:00 Alcohol intake 2018-05-25 2018-05-25 Current [facility] thodist 00:00:00 00:00:00 non-drinker of alcohol (finding) History of 2018-04-25 Current smoker [facility] tobacco use 00:00:00 Smoking Status Start Date Stop Date Source Former smoker 2018-05-25 00:00:00 2018-05-25 00:00:00 [facility] Medications Ordered Filled Start Stop Current Ordering Indication Dosage Frequency Signature Comments Components Source Medication Medication Date Date Medication? Clinician (SIG) Name Name Marysol Carrilloethazin 2019-0 2020- No Norah [address] [facility] HCl e HCl 4-28 05-03 [place] [facility] needed [facility]: [facility]:00 for n/v [facility] 00 :[facility] SUMAtriptan SUMAtriptan Yes POURAN inject PRN Univers Succinate 6 Succinate 6 2-21 BENJA onset of ity of MG/0.5ML MG/0.5ML 00:00: M.D. the [place] Subcutaneou Subcutaneou 00 cluster Physici s Solution [...] DAILY. [place] Tablet Tablet 00 Physici ans Zofran Zofran Yes Norah 1 tablet [facility] [place] [facility] Losartan Losartan Yes Norah [address] Potassium-H Potassium-H [place] [facility] - CTZ CTZ [facility] l [facility] Hydrocodone Hydrocodone Yes Norah [address] [facility] [address] -Acetaminop -Acetaminop [place] as needed [facility] hen hen [facility] Adderall XR Adderall XR Yes Norah [address] [facility] [place] in the [facility] - morning [facility] Omeprazole Omeprazole Yes Norah [address] [facility] [place] 30 minutes [facility] - before Memoria morning l meal [facility] Dicyclomine Dicyclomine Yes Norah [address] [facility] HCl HCl [place] [facility] Immunizations Ordered Immunization Filled Immunization Date Status Commen ts Source Name Name Taryn Quadrivalent 2018-06-03 Completed Univ ersity of 0.5 [place] Intramuscular 14:35:00 [place] Sus[place] Vital Signs Vital Name Observation Time Observation Value Comments Source BP Systolic 2018-10-02 155 mm[Hg] Location: [facility] ::00 Position: [place] Physician s Sitting BP Diastolic 2018-10-02 88 mm[Hg] Location: [facility] ::00 Position: [place] Physician s Sitting Height 2018-10-02 75 [in_us] [facility] ::00 [place] Phys[facility] s Weight 2018-10-02 302 [lb_av] [facility] :: [place] Physician s Body Mass Index 2018-10-02 37.75 kg/m2 University o f Calculated 15::00 [place] Physician s Temperature 2018-10-02 98 [degF] Method: Oral [facility] :: [place] Physician s Heart Rate 2018-10-02 63 /min Location: [facility] ::00 Apical; [place] Physician s BP Systolic 2018-09-25 154 mm[Hg] Location: [facility] ::00 Position: [place] Physician s Sitting BP Diastolic 2018-09-25 98 mm[Hg] Location: [facility] ::00 Position: [place] Physician s Sitting Heart Rate 2018-09-25 70 /min Quality: Normal University o f 10:26:00 [place] Physician s BP Systolic 2018-09-25 169 mm[Hg] Location: [facility] ::00 Position: [place] Physician s Sitting BP Diastolic 2018-09-25 65 mm[Hg] Location: [facility] ::00 Position: [place] Physician s Sitting Heart Rate 2018-09-25 67 /min Quality: Normal University o f 10:25:00 [place] Physician s Height 2018-09-25 75 [in_us] [facility] ::00 [place] Phys[facility] s Weight 2018-09-25 295 [lb_av] [facility] of ::00 [place] Phys[facility] s Body Mass Index 2018-09-25 36.87 kg/m2 University o f Calculated 10:25:00 [place] Phys[facility] s Temperature 2018-09-25 98.3 [degF] Method: Oral [place] of 10:25:00 [place] Physician s O2 SAT 2018-09-25 99 % [facility] 10:25:00 [place] Physician s BP Systolic 2018-06-03 136 mm[Hg] Location: [facility] :09: Position: [place] Physician s Sitting BP Diastolic 2018-06-03 75 mm[Hg] Location: [facility]; [facility] :09: Position: [place] Physician s Sitting Height 2018-06-03 75 [in_us] [facility] :09:00 [place] Phys[facility] s Weight 2018-06-03 317 [lb_av] [facility] :09: [place] Phys[facility] s Body Mass Index 2018-06-03 39.62 kg/m2 University o f Calculated 14:: [place] Phys[facility] s Temperature 2018-06-03 97.9 [degF] Method: Oral [facility] :: [place] Physician s Heart Rate 2018-06-03 74 /min [facility] :: [place] Physician s Procedures Procedure Date / Time Performing Clinician Source Performed [U] XRAY KNEE 4 OR MORE 2018-07-24 00:00:00 [facility] VWS RIGHT [id number] Physicians Emg/Ncv 2018-06-20 00:00:00 [place] o f [place] [facility] - Sleep 2018-06-03 00:00:00 [facility] Study Split Night Physicians History of Cubital tunnel [facility] repair Physicians History of Appendectomy [facility] Physicians History of Wrist surgery [facility] Physicians History of [facility] [place] Hemorrhoidectomy Physicians Plan of Care Planned Activity Planned Date Details Comments Source Future Scheduled 2020-03-12 INFLUENZA VACCINE [place] [facility] Test 00:00:00 [code = INFLUENZA VACCINE] Diagnostic Test 2018-06-20 Emg/Ncv [code = [facility] [place] Pending 00:00:00 Emg/Ncv] Physicians Diagnostic Test 2018-06-20 Emg/Ncv [code = [facility] [place] Pending 00:00:00 Emg/Ncv] Physicians Encounters Start End Encounter Admission Attending Care Care Encounter Source Date/Time Date/Time Type Type Clinicians Facility Department ID 2020-05-23 2020-05-23 Outpatient [facility]MLC [facility] [id number] [facility] 2020-02-24 2020-02-24 [facility] [id number] 14:42:00 14:42:00 t [employer] [facility] - [facility] 2020-02-22 2020-02-22 [facility] [id number] 13:51:00 13:51:00 t [facility] s - Road [facility] 2019-12-10 2019-12-10 [facility] [id number] 15:39:00 15:39:00 t [facility] s - Road [facility] Medicine Outpati ent Clinics 2019-12-08 2019-12-08 [facility] [id number] 13:40:00 13:40:00 t [facility] s - Road [facility] 2019-12-07 2019-12-07 [facility] [id number] 12:05:00 12:05:00 t [facility] s Road [facility] 2019-11-16 2019-11-16 [facility] [id number] 11:00:00 11:00:00 [facility] 2019-10-21 2019-10-21 Emergency Blaire Guevara [facility] [id number] 11:24:16 14:51:00 Sintia Armstrong [id number] [place] [id number] [place] [id number] 2019-09-29 2019-09-29 [facility] [id number] 09:21:00 09:21:00 t [facility] 2019-09-21 2019-09-21 [facility] [id number] 14:00:00 14:00:00 t [facility] Clinics 2019-03-13 2019-03-13 [facility]u [facility] [id number] Univers 09:00:00 09:00:00 t; Lesa RODRIGUEZ y of [place] Valery RODRIGUEZ M.D. ans 2018-10-02 2018-10-02 [facility] EUNICE YOUSIF [facility] [id number] Univers 15:00:00 15:00:00 t; Asher JONES M.D. [place] Val[place] JONES M.D. ans 2018-09-25 2018-09-25 [facility] [id number] Univers 10:30:00 10:30:00 t; BRANT CEJA NP Health and sadiey SHANE GUO [facility] Valery Scott ans 2018-09-22 2018-09-22 [facility] [id number] Univers 15:30:00 15:30:00 t; Asher JONES stephen YOUSIF M.D. [place] Valery JONES M.D. ans 2018-08-22 2018-08-22 [facility] [id number] Univers 09:30:00 09:30:00 t; Lesa BRYANT y of [place], [place] Valery BRYANT M.D. ans 2018-07-29 2018-07-29 [facility] [id number] Univers 14:30:00 14:30:00 t; Lesa BRYANT y of [place], [place] Valery BRYANT M.D. ans 2018-07-25 2018-07-25 [facility] [id number] Univers 10:30:00 10:30:00 t; Lesa BRITT at [facility] [place], [place] Valery BRITT M.D. ans 2018-07-22 2018-07-22 [facility] TAMMY [facility] [id number] Univers 11:15:00 11:15:00 t; Lesa BRYANT [facility] Orthopedics [facility] Valery BRYANT M.D. ans 2018-07-15 2018-07-15 [facility] [id number] Univers 10:30:00 10:30:00 t; Lesa BRYANT [facility], Orthopedics [place] Val[place] BRYANT M.D. ans 2018-07-09 2018-07-09 Appointmen [facility] [id number] Univers 13:00:00 13:00:00 t; Lesa BRYANT it of [place], [place] Valery BRYANT M.D. ans 2018-06-30 2018-06-30 [facility] [id number] Univers 10:15:00 10:15:00 t; Lesa BRYANT [facility], Orthopedics Norberto as Val[place] BRYANT M.D. ans 2018-06-20 2018-06-20 [id number] Univers 13:40:00 13:40:00 t; SHANE MONROE [facility], [place]oped[place] SHANE MONROE Physi ci ans 2018-06-19 2018-06-19 [facility] [id number] Univers 08:15:00 08:15:00 t; SERJIO HUERTA D.O. ity [facility] Mirna Romo Physicsp ans 2018-06-17 2018-06-17 [facility] [id number] Univers 15:45:00 15:45:00 t; Lesa BRYANT [facility], Orthopedics [place]to as Val[place] BRYANT M.D. ans 2018-06-03 2018-06-03 [facility] [id number] Univers 13:45:00 13:45:00 t; SERJIO HUERTA D.[place]. [place] ity [facility] Mirna Romo Physici ans Results Test Description Test Time Test Comments Results Result [facility] e Comments [U] XRAY ELBOW 2 2018-06-17 Images Universi ty of VWS RIGHT [id number] 15:57:00 acquired, not [place] reported on Physicians this accession number. [U] XRAY WRIST 2018-06-17 Images University of MIN 3 VWS RIGHT 15:57:00 acquired, not [place] [address] reported on Physicians this accession number.
--- OUTSIDE RECORDS SUMMARY | 2020-06-05 22:05 | XMS REPORT ---
:1980 Author Organization [facility] Address [address] [place], [address] [place] [address] Care Team Providers Name Role Phone Vazquez Unavailable [phone] PROBLEMS Type Condition ICD9-CM OXI13-RZ Onset Condition SNOMED Code Notes Code Code Dates Status Problem Non-seasonal J30.89 Active 82921121 allergic rhinitis, unspecified trigger Problem Mild intermittent J45.20 Active 249801112 asthma with allergic rhinitis, unspecified whether complicated Problem Depression with F41.8 Active 081656354 anxiety Problem Migraine without G43.009 Active 992030751 aura and without status migrainosus, not intractable Problem Attention deficit F90.2 Active 76733294 hyperactivity disorder (ADHD), combined type Problem Primary M17.11 Active 988743557926343 osteoarthritis of right knee Problem Pain in right M25.561 Active 21337711 knee Problem Left maxillary J32.0 Active 72513506 sinusitis Problem Hypertension, I10 Active 59545319 unspecified type Problem GERD without K21.9 Active 953709167 esophagitis Problem Tobacco use F17.200 Active 054974453 disorder Problem Other chronic G89.29 Active 10267497 pain Problem Mixed E78.2 Active 136225365 hyperlipidemia ALLERGIES No Known Allergies ENCOUNTERS from 1980 to 2020-05-23 Encounter Location Date Provider Diagnosis [facility] [address] [place], John Vazquez Non -recurrent acute Family Medicine [address] [place], [place] [address] of both ears H 65.03 and Left maxill brandon sinusitis J32.0 IMMUNIZATIONS Vaccine Route Administration Date Status Bupivicaine [place] Unknown November 16, 2019 Administered Kenalog (Triamcinolone) IM Intramuscular May 23, 2020 Adminis tered Kenalog (Triamcinolone) Unknown November 16, 2019 Administ ered SOCIAL HISTORY Tobacco Use: Social History Observation Description Date Details (start date - stop date) Current Smoker Sex Assigned At : Social History Observation Description Sex Assigned At Unknown PHQ9 Question Answer Notes Little interest or pleasure in doing things Several days Feeling down, depressed, or hopeless Several days Trouble falling or staying asleep or sleeping too much Sever al days Feeling tired or having little energy Several days Poor appetite or overeating Several days Feeling bad about yourself, or that you are a failure, Sever al days or have let yourself or your family down Trouble concentrating on things, such as reading the More th an half the days newspaper or watching television Moving or speaking so slowly that other people could Not at all have noticed; or the opposite, being so fidgety or restless that you have been moving around a lot more than usual Total Score 8 Interpretation Mild Depression Thoughts that you would be better off or of Not at all hurting yourself in some way Alcohol Screen Question Answer Notes Did you have a drink containing alcohol in the past year? Ye s Points 0 Interpretation Negative How often did you have a drink containing alcohol in the pas t Never (0 points) year? Tobacco Use/Smoking Question Answer Notes Are you a current smoker REASON FOR REFERRAL No Information VITAL SIGNS Height 72 in May, Weight 314.4 lbs May, Temperature 97.2 degrees Fahrenheit May, BMI 42.64 kg/m2 May, Oximetry 98 % May, Respiratory Rate 18 /min May, Blood pressure systolic 140 mm Hg May, Blood pressure diastolic 74 mm Hg May, MEDICATIONS Medication SIG (Take, Route, Start Date End Date Status Frequency, Duration) Losartan Potassium-HCTZ 1 tablet Orally Once a Active 50-12.5 MG day for 30 day(s) Adderall XR 20 MG 1 capsule in the Not-Ta veena morning Orally Once a day Hydrocodone-Acetaminophen 1 tablet as needed Not-Taking 5-325 MG Orally PRN Omeprazole 40 MG 1 capsule 30 minutes Act vince before morning meal Orally Once a day for 30 days Zofran 8 MG 1 tablet as needed Active Orally Once a day PRN Nausea Amoxicillin-Pot 1 tablet Orally every May, May, Act vince Clavulanate 875-125 MG 12 hrs for 10 day(s) Dicyclomine HCl 20 MG 1 tablet Orally PRN Active PROCEDURES No Information RESULTS No Results REASON FOR VISIT Ear MEDICAL (GENERAL) HISTORY Type Description Date Medical History Hypertension, unspecified type Medical History Depression with anxiety Medical History GERD without esophagitis Medical History Migraine without aura and without status migrainosus, not intractable Medical History Non-seasonal allergic rhinitis, unspecif ied trigger Medical History Mild intermittent asthma with allergic r hinitis, unspecified whether complicated Medical History Attention deficit hyperactivity disorder (ADHD), combined type Medical History Pain in right knee Medical History Other chronic pain Surgical History Appendectomy 2013 Surgical History RIGHT AND LEFT Carpal tunnel 2018 Surgical 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 ful l strength in 5944-4938 either arm Surgical History Tendonitis 2016 Surgical History Right and left elbow Goals Section No Information Health Concerns No Information MEDICAL EQUIPMENT No Information MENTAL STATUS No Information FUNCTIONAL STATUS No Information ASSESSMENTS Encounter Date Diagnosis Notes May, Non-recurrent acute serous otitis media of both ears (ICD-10 - H65.03) May, Left maxillary sinusitis (ICD-10 - J32.0 ) PLAN OF TREATMENT Medication Medication Name Sig Start Date Stop Date Amoxicillin-Pot Clavulanate 1 tablet Orally every 12 May, 0 May, 875-125 MG hrs for 10 day(s) Treatment Notes Assessment Notes Clinical Notes Non-recurrent acute serous With the duration and severity Av oid Q-tip usage. Avoid otitis media of both ears of symptoms/PE, will treat exposur e to swimming pool with Augmentin for 10 days and or lakes during treatment. Kenalog IM for therapeutic reasons. Side effect discussed with patient. In addition, discussed supportive measures and home remedies for symptomatic relief. Increase hydration. Advised on signs/symptoms to monitor. If able to take, OK to use OTC Tylenol and/or NSAIDs for pain and fever, temporarily. It is important to rest and take your medication as recommended by the doctor. You should clean your hands frequently. You should remain indoors and cover your mouth when coughing. If necessary you may have to wear a mask to keep from infecting others. You should also change your toothbrush within 24-48 hours of starting any antibiotics. Salt water gargles three times a day is recommended for pharyngeal irritation and congestion. Nasal saline sprays three times a day to the nostrils may help with the nasal congestion. You may also take Mucinex OTC for chest congestion. If the symptoms persists or worsen after 24-48 hours especially if taking medication, then you are to call back for reevaluation or go to the ER. Next Appt Details 08/2020 [facility] Reason: Provider Name:John Vazquez, 2020-08-30 0 9:30:00 AM, [address], [place], [address], Insurance Providers Payer Name Payer Payer Insured Patient Coverage Coverage End Address Phone Name Relationship to Start Date [place]ac[place] e Insured COMM[employer] [phone] TashiArvind self 2018 [employer] [id number] [address] [facility] [phone]
[2020-06-05] MEDS ORDERED: METOCLOPRAMIDE 10 MG/2mL INJ ONE (22:54)
[2020-06-05] MEDS ORDERED: NA CHLORIDE 0.9% 1,000 ML ONE (22:54)
[2020-06-05] MEDS ORDERED: DIPHENHYDRAMINE 50 MG/ML VIAL ONE (22:54)
[2020-06-05] MEDS ORDERED: ACETAMINOPHEN 500 MG TAB ONE (23:04)
[2020-06-06] MEDS ORDERED: KETOROLAC 30 MG/ML INJ ONE (00:03)
[2020-06-06] MEDS ORDERED: NEOMY/POLY/HC 1% OTIC DROPS ONE (00:03)
--- NOTE | 2020-06-06 00:39 | EDPHYS ---
Physician Documentation [facility] Name: Terry Akins Sr Age: 40 yrs Sex: Male : 1980 Arrival Date: 06/05/2020 Time: 22:03 Bed 5 Private MD: ED Physician Gigi Ramirez HPI: 06/05 22:45 This 40 yrs old Black Male presents to ER via Ambulatory with complaints of Ear Pain, mh7 Headache. 22:45 The patient presents with pain, moderate. The complaints affect the left ear. Onset: mh7 The symptoms/episode began/occurred 2 week(s) ago. Modifying factors: The symptoms are alleviated by nothing, the symptoms are aggravated by loud noise. Associated signs and symptoms: Pertinent positives: Headache, Pertinent negatives: cough, fever, lightheadedness, nausea, rhinorrhea, sinus trouble, shortness of breath, sore throat, tinnitus, vertigo, vomiting. Severity of symptoms: At their worst the symptoms were moderate today, in the emergency department the symptoms are unchanged. The patient has been recently seen by a physician: the patient's primary care provider, 2 week(s) ago. Patient states that he saw his doctor two weeks ago due to left inner ear pain. He states that he was started on Amoxicillin for ear canal infection at that time. He states that his pain has not improved since then and has aggravated his migraine headaches. Denies any fever, chest pain, abdominal pain, nausea, vomiting, SOB, sore throat, cough, dizziness, numbness/tingling. or weakness.. Historical: - Allergies: 22:12 No Known Allergies; - Home Meds: 22:12 None [Active]; - PMHx: 22:12 GERD; Hypertension; Carpal Tunnel; - PSHx: 22:12 Appendectomy; - Immunization history:: Adult Immunizations not up to date. - Social history:: Smoking status: Patient/guardian denies using. ROS: 22:45 Constitutional: Negative for fever, chills, and weight loss, Eyes: Negative for injury, mh7 pain, redness, and discharge, Neck: Negative for injury, pain, and swelling, Cardiovascular: Negative for chest pain, palpitations, and edema, Respiratory: Negative for shortness of breath, cough, wheezing, and pleuritic chest pain, Abdomen/GI: Negative for abdominal pain, nausea, vomiting, diarrhea, and constipation, Back: Negative for injury and pain, : Negative for injury, bleeding, discharge, and swelling, MS/Extremity: Negative for injury and deformity, Skin: Negative for injury, rash, and discoloration, Psych: Negative for depression, anxiety, suicide ideation, homicidal ideation, and hallucinations, Allergy/Immunology: Negative for hives, rash, and allergies, Endocrine: Negative for neck swelling, polydipsia, polyuria, polyphagia, and marked weight changes, Hematologic/Lymphatic: Negative for swollen nodes, abnormal bleeding, and unusual bruising. Exam: 22:45 Head/Face: Normocephalic, atraumatic. Eyes: Pupils equal round and reactive to light, mh7 extra-ocular motions intact. Lids and lashes normal. Conjunctiva and sclera are non-icteric and not injected. Cornea within normal limits. Periorbital areas with no swelling, redness, or edema. 22:45 Neck: Trachea midline, no thyromegaly or masses palpated, and no cervical lymphadenopathy. Supple, full range of motion without nuchal rigidity, or vertebral point tenderness. No Meningismus. Chest/axilla: Normal chest wall appearance and motion. Nontender with no deformity. No lesions are appreciated. Cardiovascular: Regular rate and rhythm with a normal S1 and S2. No gallops, murmurs, or rubs. Normal PMI, no JVD. No pulse deficits. Respiratory: Lungs have equal breath sounds bilaterally, clear to auscultation and percussion. No rales, rhonchi or wheezes noted. No increased work of breathing, no retractions or nasal flaring. Abdomen/GI: Soft, non-tender, with normal bowel sounds. No distension or tympany. No guarding or rebound. No evidence of tenderness throughout. Back: No spinal tenderness. No costovertebral tenderness. Full range of motion. Skin: Warm, dry with normal turgor. Normal color with no rashes, no lesions, and no evidence of cellulitis. MS/ Extremity: Pulses equal, no cyanosis. Neurovascular intact. Full, normal range of motion. Neuro: Awake and alert, GCS 15, oriented to person, place, time, and situation. Cranial nerves II-XII grossly intact. Motor strength 5/5 in all extremities. Sensory grossly intact. Cerebellar exam normal. Normal gait. Psych: Awake, alert, with orientation to person, place and time. Behavior, mood, and affect are within normal limits. 22:45 Constitutional: The patient appears in no acute distress, alert, awake, uncomfortable. 22:45 ENT: External ear(s): are unremarkable, Ear canal(s): swelling, that is moderate, of the left canal, TM's: are normal, Examination of the other ear shows no obvious abnormality, Nose: is normal, Mouth: is normal, Posterior pharynx: is normal, Dental exam: normal, Voice: is normal. Vital Signs: 22:10 BP 158 / 89; Pulse 83; Resp 18; Temp 97.9; Pulse Ox 100% ; Weight 135.17 kg; Height 6 wh ft. 3 in. (190.50 cm); Pain 8/10; 23:35 BP 129 / 64; Pulse 72; Resp 16; Pulse Ox 98% on R/A; rv 06/06 00:23 BP 120 / 66; Pulse 79; Resp 16; Pulse Ox 96% on R/A; wh 06/05 22:10 Body Mass Index 37.25 (135.17 kg, 190.50 cm) wh MDM: 06/05 22:34 Patient medically screened. mh7 06/06 00:36 Differential diagnosis: otitis media, otitis externa, ruptured TM, foreign body, acute mh7 otalgia, cerumen impaction, barotrauma , serotympanum, Headache, Migraine, Tension Headache, Cluster Headache. Data reviewed: vital signs, nurses notes, old medical records, radiologic studies, CT scan. Data interpreted: Pulse oximetry: on room air is 96 %. Interpretation: normal. Counseling: I had a detailed discussion with the patient and/or guardian regarding: the historical points, exam findings, and any diagnostic results supporting the discharge/admit diagnosis, lab results, radiology results, the need for outpatient follow up, an ENT specialist, to return to the emergency department if symptoms worsen or persist or if there are any questions or concerns that arise at home. Response to treatment: the patient's symptoms have markedly improved after treatment. 06/05 22:43 Order name: CT Head Brain wo Cont mh7 Administered Medications: 06/05 22:48 Drug: NS 0.9% 1000 ml Route: IV; Rate: 1000 ml; Site: right antecubital; 06/06 00:50 Follow up: Response: No adverse reaction; IV Status: Completed infusion 06/05 22:50 Drug: Benadryl 50 mg Route: IVP; Site: right antecubital; 06/06 00:50 Follow up: Response: No adverse reaction 06/05 22:52 Drug: Reglan 10 mg Route: IVP; Site: right antecubital; 06/06 00:50 Follow up: Response: No adverse reaction 06/05 22:52 Drug: Tylenol 1000 mg Route: PO; 06/06 00:49 Follow up: Response: No adverse reaction; Pain is decreased 06/05 23:54 Drug: TORadol 30 mg Route: IVP; Site: right antecubital; 06/06 00:49 Follow up: Response: No adverse reaction; Pain is decreased 06/05 23:54 Drug: Cortisporin Drops 4 drops Route: Otic; Site: left ear; 06/06 00:49 Follow up: Response: No adverse reaction Disposition: 06/06/20 00:39 Discharged to Home. Impression: Otitis externa in other diseases classified elsewhere, left ear, Headache. - Condition is Stable. - Discharge Instructions: Ear Drops, Adult, Migraine Headache, Otitis Externa, [id number]. - Prescriptions for Cortisporin- TC 3.3-3-10-0.5 mg/mL Otic Suspension - instill 4 drop by OTIC route every 6 hours; 1 bottle. Ibuprofen 800 mg Oral Tablet - take 1 tablet by ORAL route every 8 hours As needed take with food; 15 tablet. Tylenol- Codeine #3 300-30 mg Oral Tablet - take 2 tablets by ORAL route every 6 hours As needed; 15 tablet. Cipro 500 mg Oral Tablet - take 1 tablet by ORAL route every 12 hours for 10 days; 20 tablet. - Medication Reconciliation Form, Thank You Letter, Antibiotic Education, Prescription Opioid Use form. - Follow up: Private Physician; When: 1 - 2 days; Reason: Worsening of condition, Recheck today's complaints, Continuance of care, Re-evaluation by your physician. Follow up: Flavia Lane MD; When: 1 - 2 days; Reason: Worsening of condition, Recheck today's complaints. - Problem is an ongoing problem. - Symptoms have improved. Signatures: Dispatcher [employer] EDMichel Valle RN RN Mina Cui Maurice, MD MD mh7 Corrections: (The following items were deleted from the chart) 00:50 00:39 06/06/2020 00:39 Discharged to Home. Impression: Otitis externa in other diseases wh classified elsewhere, left ear; Headache. Condition is Stable. Forms are Medication Reconciliation Form, Thank You Letter, Antibiotic Education, Prescription Opioid Use. Follow up: Private Physician; When: 1 - 2 days; Reason: Worsening of condition, Recheck today's complaints, Continuance of care, Re-evaluation by your physician. Follow up: Flavia Lane; When: 1 - 2 days; Reason: Worsening of condition, Recheck today's complaints. Problem is an ongoing problem. Symptoms have improved. mh7
--- NOTE | 2020-06-06 00:39 | ER ---
Nurse's Notes [facility] Name: Terry Akins Sr Age: 40 yrs Sex: Male : 1980 Arrival Date: 06/05/2020 Time: 22:03 Bed 5 Private MD: Diagnosis: Otitis externa in other diseases classified elsewhere, left ear;Headache Presentation: 06/05 22:10 Chief complaint: Patient states: was diagnosed with ear infection 2 weeks ago and was wh started on antibiotics. Pt now C/O ear pain is getting worse now radiating to left side of face and jaw. Coronavirus screen: Client denies travel out of the [place] in the last 14 days. At this time, the client does not indicate any symptoms associated with coronavirus-19. Ebola Screen: Patient negative for fever greater than or equal to 101.5 degrees Fahrenheit, and additional compatible Ebola Virus Disease symptoms Patient denies exposure to infectious person. Initial Sepsis Screen: Does the patient meet any 2 criteria? No. Patient's initial sepsis screen is negative. Does the patient have a suspected source of infection? Yes: Other: ear infection. Risk Assessment: Do you want to hurt yourself or someone else? Patient reports no desire to harm self or others. Onset of symptoms was June 05, 2020. 22:10 Method Of Arrival: Ambulatory 22:10 Acuity: SARITHA 4 Historical: - Allergies: 22:12 No Known Allergies; - Home Meds: 22:12 None [Active]; - PMHx: 22:12 GERD; Hypertension; Carpal Tunnel; - PSHx: 22:12 Appendectomy; - Immunization history:: Adult Immunizations not up to date. - Social history:: Smoking status: Patient/guardian denies using. Screenin:14 Abuse screen: Denies threats or abuse. Denies injuries from another. Nutritional screening: No deficits noted. Tuberculosis screening: No symptoms or risk factors identified. Fall Risk None identified. Assessment: 22:12 General: Appears in no apparent distress. Behavior is calm, cooperative, appropriate for age. Pain: Complains of pain in left ear Pain radiates to left jaw and left cheek Pain currently is 8 out of 10 on a pain scale. Neuro: Level of Consciousness is awake, alert, obeys commands, Oriented to person, place, time, situation, Appropriate for age. Cardiovascular: Capillary refill < 3 seconds. Respiratory: Airway is patent Respiratory effort is even, unlabored, Respiratory pattern is regular, symmetrical. GI: Abdomen is flat, non-distended. : No signs and/or symptoms were reported regarding the genitourinary system. EENT: Reports pain in left ear. Derm: Skin is intact, is healthy with good turgor, Skin is pink, warm \T\ dry. normal. Musculoskeletal: Circulation, motion, and sensation intact. 23:15 Reassessment: Patient appears in no apparent distress at this time. No changes from previously documented assessment. Patient and/or family updated on plan of care and expected duration. Pain level reassessed. Patient is alert, oriented x 3, equal unlabored respirations, skin warm/dry/pink. 06/06 00:23 Reassessment: Patient appears in no apparent distress at this time. Patient and/or family updated on plan of care and expected duration. Pain level reassessed. Patient is alert, oriented x 3, equal unlabored respirations, skin warm/dry/pink. Patient states feeling better. Patient states symptoms have improved. Vital Signs: 06/05 22:10 BP 158 / 89; Pulse 83; Resp 18; Temp 97.9; Pulse Ox 100% ; Weight 135.17 kg; Height 6 wh ft. 3 in. (190.50 cm); Pain 8/10; 23:35 BP 129 / 64; Pulse 72; Resp 16; Pulse Ox 98% on R/A; rv 06/06 00:23 BP 120 / 66; Pulse 79; Resp 16; Pulse Ox 96% on R/A; wh 06/05 22:10 Body Mass Index 37.25 (135.17 kg, 190.50 cm) ED Course: 06/05 22:03 Patient arrived in ED. cl3 22:04 Mina Damon is Primary Nurse. 22:12 Triage completed. 22:14 Arm band placed on right wrist. 22:14 Patient has correct armband on for positive identification. Bed in low position. Call light in reach. Side rails up X 1. Pulse ox on. NIBP on. 22:17 Gigi Ramirez MD is Attending Physician. [facility] 22:45 Inserted saline lock: 20 gauge in right antecubital area, using aseptic technique. oe 23:07 CT Head Brain wo Cont In Process Unspecified. EDMS 23:36 Awaiting radiology results. 06/06 00:[address] MD is Referral Physician. [facility] 00:48 No provider procedures requiring assistance completed. IV discontinued, intact, bleeding controlled, No redness/swelling at site. Administered Medications: 06/05 22:48 Drug: NS 0.9% 1000 ml Route: IV; Rate: 1000 ml; Site: right antecubital; 06/06 00:50 Follow up: Response: No adverse reaction; IV Status: Completed infusion 06/05 22:50 Drug: Benadryl 50 mg Route: IVP; Site: right antecubital; 06/06 00:50 Follow up: Response: No adverse reaction 06/05 22:52 Drug: Reglan 10 mg Route: IVP; Site: right antecubital; 06/06 00:50 Follow up: Response: No adverse reaction 06/05 22:52 Drug: Tylenol 1000 mg Route: PO; 06/06 00:49 Follow up: Response: No adverse reaction; Pain is decreased 06/05 23:54 Drug: TORadol 30 mg Route: IVP; Site: right antecubital; 06/06 00:49 Follow up: Response: No adverse reaction; Pain is decreased 06/05 23:54 Drug: Cortisporin Drops 4 drops Route: Otic; Site: left ear; 06/06 00:49 Follow up: Response: No adverse reaction Outcome: 00:39 Discharge ordered by . [facility] 00:49 Discharged to home ambulatory. 00:49 Condition: stable 00:49 Discharge instructions given to patient, Instructed on discharge instructions, follow up and referral plans. no drinking with medication, no driving heavy equipment, medication usage, POC Demonstrated understanding of instructions, follow-up care, medications, POC Prescriptions given X 4. 00:50 Patient left the ED. Signatures: Dispatcher [employer] EDMS Jag Ritchie Winsy Sacha Lieberman, BRYN RN Gary Samuel cl3 Gigi Ramirez MD MD [facility]
[2020-06-06 01:40] VITALS: TEMP 97.9
[2020-06-06 01:43] VITALS: BP 120/66; O2SAT 96
--- NOTE | 2020-06-06 12:27 | RAD REPORT ---
EXAM DESCRIPTION: Head Brain Wo Cont CLINICAL HISTORY: 40-year-old male with headache. COMPARISON: None. TECHNIQUE: CT brain without contrast. This exam was performed according to our departmental dose opt imization program which includes use of automated exposure control, adjustment of the mA and/or kV ac cording to patient size and/or use of iterative reconstruction technique. FINDINGS: The ventricles, sulci, and cisterns are within normal limits. The abdi-white matter diff erentiation is preserved. There is no mass effect, midline shift, intra- or extra-axial fluid colle ction/acute hemorrhage. The osseous structures are unremarkable. The paranasal sinuses and mastoi d air cells are clear. IMPRESSION: No acute intracranial abnormalities. Electronically signed by: Margoth Moreland MD 06/05/2020 11:30 PM CDT Due to temporary technical issues with the PACS/Fluency reporting system, reports are being signed by the in house radiologist without review as a courtesy to ensure prompt reporting. The interpreting r adiologist is fully responsible for the content of the report.
== END 2020-06-06 00:50 | disposition home or self-care (01) ==
LOC: ER 22:02
DX: H60.92 Unspecified otitis externa, left ear (principal); R51.9 Headache, unspecified; I10 Essential (primary) hypertension
CPT/HCPCS: 96361; 70450; 96375; 96374; 99284; J2765; J1200; J7030

== ENCOUNTER 2020-06-06 08:35 | Emergency (ER) | payer OTHER ==
--- NOTE | 2020-06-06 09:01 | ER ---
Nurse's Notes [facility] Name: Terry Akins Sr Age: 40 yrs Sex: Male : 1980 Arrival Date: 06/06/2020 Time: 08:36 Bed 7 Private MD: John Vazquez Diagnosis: Otitis media, unspecified, left ear;Otitis externa;Migraine Presentation: 06/06 08:38 Chief complaint: Patient states: was seen here yesterday for left ear pain, ear wick aa5 was placed and wick came out. Pt was sent home with prescriptions for Cipro, Cortisporin, Tylenol # 3, and Ibuprofen. 08:38 Coronavirus screen: Client denies travel out of the [place] in the last 14 days. Ebola aa5 Screen: Patient negative for fever greater than or equal to 101.5 degrees Fahrenheit, and additional compatible Ebola Virus Disease symptoms. Initial Sepsis Screen: Does the patient meet any 2 criteria? No. Patient's initial sepsis screen is negative. Does the patient have a suspected source of infection? No. Patient's initial sepsis screen is negative. Risk Assessment: Do you want to hurt yourself or someone else? Patient reports no desire to harm self or others. Onset of symptoms was May 2020. 08:38 Acuity: SARITHA 4 aa5 08:38 Method Of Arrival: Ambulatory aa5 Historical: - Allergies: 08:43 No Known Allergies; jl7 - Home Meds: 08:43 None [Active]; jl7 - PMHx: 08:43 carpal tunnel; GERD; Hypertension; jl7 - PSHx: 08:43 Appendectomy; jl7 - Immunization history:: Adult Immunizations. - Social history:: Smoking status: . Screenin:40 Abuse screen: Denies threats or abuse. Denies injuries from another. Nutritional jl7 screening: No deficits noted. Tuberculosis screening: No symptoms or risk factors identified. Fall Risk None identified. Assessment: 08:40 General: Appears in no apparent distress. uncomfortable, Behavior is calm, cooperative, tw2 appropriate for age. Pain: Complains of pain in left ear. Neuro: Level of Consciousness is awake, alert, obeys commands, Oriented to person, place, time, situation. Cardiovascular: Patient's skin is warm and dry. Respiratory: Airway is patent Respiratory effort is even, unlabored, Respiratory pattern is regular, symmetrical. GI: No signs and/or symptoms were reported involving the gastrointestinal system. : No signs and/or symptoms were reported regarding the genitourinary system. EENT: Reports pain in left ear. Derm: No signs and/or symptoms reported regarding the dermatologic system. Musculoskeletal: Range of motion: intact in all extremities. Vital Signs: 08:40 BP 153 / 90; Pulse 72; Resp 18 S; Temp 98.3(TE); Pulse Ox 98% on R/A; aa5 09:30 BP 141 / 85; Pulse 64; Resp 15; Pulse Ox 100% ; jl7 ED Course: 08:36 Patient arrived in ED. ag5 08:38 Talon Whitt MD is Attending Physician. sin 08:38 John Vazquez DO is Private Physician. ag5 08:40 Lety Otero RN is Primary Nurse. jl7 08:40 Patient has correct armband on for positive identification. Bed in low position. Call jl7 light in reach. Side rails up X 1. Pulse ox on. NIBP on. 08:43 Patient has correct armband on for positive identification. Bed in low position. Call 5 light in reach. Adult w/ patient. Pulse ox on. NIBP on. 08:43 Arm band placed on. tw2 08:47 Triage completed. aa5 08:59 John Vazquez DO is Referral Physician. sin 09:[address] MD is Referral Physician. sin 09:22 No provider procedures requiring assistance completed. Patient did not have IV access jl7 during this emergency room visit. Administered Medications: 09:00 Not Given (Other Intervention Used): CIPRODEX 4 drops Otic in left ear once aa5 09:13 Drug: Rocephin (cefTRIAXone) 1 grams {Note: administered with 2.1 mL 1% lidocaine.} jl7 Route: IM; Site: right ventrogluteal; 09:35 Follow up: Response: No adverse reaction jl7 09:14 Drug: Phenergan 25 mg Route: IM; Site: right deltoid; jl7 09:35 Follow up: Response: No adverse reaction jl7 09:15 Drug: Demerol 50 mg Route: IM; Site: left deltoid; jl7 09:35 Follow up: Response: No adverse reaction jl7 09:20 Drug: Gatifloxacin 0.3 % 1 drops {Note: administered in left ear as ordered.} Route: jl7 Ophthalmic; Site: left eye; 09:35 Follow up: Response: No adverse reaction jl7 09:21 Drug: Bactrim (160 mg-800 mg (DS) 1 tablet Route: PO; jl7 09:35 Follow up: Response: No adverse reaction jl7 09:22 Drug: LevOfloxacin 500 mg Route: PO; jl7 09:35 Follow up: Response: No adverse reaction jl7 Outcome: 09:00 Discharge ordered by . sin 09:34 Discharged to home ambulatory, with family. 09:34 Condition: stable 09:34 Discharge instructions given to patient, family, Instructed on discharge instructions, follow up and referral plans. medication usage, Demonstrated understanding of instructions, follow-up care, medications, Prescriptions given X 4. 09:36 Patient left the ED. jl7 Signatures: Talon Whitt MD MD cha Calderon, Audri, RN RN aa5 Leti Flor RN RN 2 Nya Cage 5 Lety Otero RN RN jl7 Corin Bunch ag5 Corrections: (The following items were deleted from the chart) 09:22 09:13 Rocephin (cefTRIAXone) 1 grams IM in left ventrogluteal jl7 jl7
--- NOTE | 2020-06-06 09:01 | EDPHYS ---
Physician Documentation [facility] Name: Terry Akins Sr Age: 40 yrs Sex: Male : 1980 Arrival Date: 06/06/2020 Time: 08:36 Bed 7 Private MD: George [facility] ED Physician Talon Whitt HPI: 06/06 08:56 This 40 yrs old Black Male presents to ER via Ambulatory with complaints of Ear Pain. [facility] 08:56 The patient presents with pain, swelling, tenderness. The complaints affect the left [facility] ear. Onset: The symptoms/episode began/occurred 3 day(s) ago. Modifying factors: The symptoms are alleviated by nothing, the symptoms are aggravated by pulling on ears, touching. Associated signs and symptoms: The patient has no apparent associated signs or symptoms. Severity of symptoms: At their worst the symptoms were mild moderate in the emergency department the symptoms are unchanged. The patient has not experienced similar symptoms in the past. Historical: - Allergies: 08:43 No Known Allergies; jl7 - Home Meds: 08:43 None [Active]; jl7 - PMHx: 08:43 carpal tunnel; GERD; Hypertension; jl7 - PSHx: 08:43 Appendectomy; jl7 - Immunization history:: Adult Immunizations. - Social history:: Smoking status: . ROS: 08:57 Constitutional: Negative for fever, chills, and weight loss, Eyes: Negative for injury, sin pain, redness, and discharge, Neck: Negative for injury, pain, and swelling, Cardiovascular: Negative for chest pain, palpitations, and edema, Respiratory: Negative for shortness of breath, cough, wheezing, and pleuritic chest pain, Abdomen/GI: Negative for abdominal pain, nausea, vomiting, diarrhea, and constipation, Back: Negative for injury and pain, : Negative for injury, bleeding, discharge, and swelling, MS/Extremity: Negative for injury and deformity, Skin: Negative for injury, rash, and discoloration, Neuro: Negative for headache, weakness, numbness, tingling, and seizure, Psych: Negative for depression, anxiety, suicide ideation, homicidal ideation, and hallucinations, Allergy/Immunology: Negative for hives, rash, and allergies, Endocrine: Negative for neck swelling, polydipsia, polyuria, polyphagia, and marked weight changes, Hematologic/Lymphatic: Negative for swollen nodes, abnormal bleeding, and unusual bruising. 08:57 ENT: Positive for ear pain. Exam: 08:57 Constitutional: This is a well developed, well nourished patient who is awake, alert, sin and in no acute distress. Head/Face: Normocephalic, atraumatic. Eyes: Pupils equal round and reactive to light, extra-ocular motions intact. Lids and lashes normal. Conjunctiva and sclera are non-icteric and not injected. Cornea within normal limits. Periorbital areas with no swelling, redness, or edema. Neck: Trachea midline, no thyromegaly or masses palpated, and no cervical lymphadenopathy. Supple, full range of motion without nuchal rigidity, or vertebral point tenderness. No Meningismus. Chest/axilla: Normal chest wall appearance and motion. Nontender with no deformity. No lesions are appreciated. Cardiovascular: Regular rate and rhythm with a normal S1 and S2. No gallops, murmurs, or rubs. Normal PMI, no JVD. No pulse deficits. Respiratory: Lungs have equal breath sounds bilaterally, clear to auscultation and percussion. No rales, rhonchi or wheezes noted. No increased work of breathing, no retractions or nasal flaring. Abdomen/GI: Soft, non-tender, with normal bowel sounds. No distension or tympany. No guarding or rebound. No evidence of tenderness throughout. Back: No spinal tenderness. No costovertebral tenderness. Full range of motion. Male : Normal genitalia with no discharge or lesions. Skin: Warm, dry with normal turgor. Normal color with no rashes, no lesions, and no evidence of cellulitis. MS/ Extremity: Pulses equal, no cyanosis. Neurovascular intact. Full, normal range of motion. Neuro: Awake and alert, GCS 15, oriented to person, place, time, and situation. Cranial nerves II-XII grossly intact. Motor strength 5/5 in all extremities. Sensory grossly intact. Cerebellar exam normal. Normal gait. Psych: Awake, alert, with orientation to person, place and time. Behavior, mood, and affect are within normal limits. 08:57 ENT: Ear canal(s): bloody discharge, erythema, purulent discharge, that is minimal, that is moderate, in the left canal, TM's: dullness, erythema, that is moderate, on the left. 08:57 Neck: Exam negative for Vital Signs: 08:40 BP 153 / 90; Pulse 72; Resp 18 S; Temp 98.3(TE); Pulse Ox 98% on R/A; aa5 09:30 BP 141 / 85; Pulse 64; Resp 15; Pulse Ox 100% ; jl7 MDM: 08:41 Patient medically screened. [facility] 08:58 Differential diagnosis: otitis media, otitis externa. Data reviewed: vital signs, [facility] nurses notes. Data interpreted: monitoring manager: not applicable for this patient encounter. rate is 72 beats/min, rhythm is regular. Counseling: I had a detailed discussion with the patient and/or guardian regarding: the historical points, exam findings, and any diagnostic results supporting the discharge/admit diagnosis. Administered Medications: 09:00 Not Given (Other Intervention Used): CIPRODEX 4 drops Otic in left ear once aa5 09:13 Drug: Rocephin (cefTRIAXone) 1 grams {Note: administered with 2.1 mL 1% lidocaine.} jl7 Route: IM; Site: right ventrogluteal; 09:35 Follow up: Response: No adverse reaction jl7 09:14 Drug: Phenergan 25 mg Route: IM; Site: right deltoid; jl7 09:35 Follow up: Response: No adverse reaction jl7 09:15 Drug: Demerol 50 mg Route: IM; Site: left deltoid; jl7 09:35 Follow up: Response: No adverse reaction jl7 09:20 Drug: Gatifloxacin 0.3 % 1 drops {Note: administered in left ear as ordered.} Route: jl7 Ophthalmic; Site: left eye; 09:35 Follow up: Response: No adverse reaction jl7 09:21 Drug: Bactrim (160 mg-800 mg (DS) 1 tablet Route: PO; jl7 09:35 Follow up: Response: No adverse reaction jl7 09:22 Drug: LevOfloxacin 500 mg Route: PO; jl7 09:35 Follow up: Response: No adverse reaction jl7 Disposition: 06/06/20 09:00 Discharged to Home. Impression: Otitis media, unspecified, left ear, Otitis externa, Migraine. - Condition is Stable. - Discharge Instructions: Otitis Media, Adult, Otitis Externa, Migraine Headache, Otitis Media, Adult, [id number]. - Prescriptions for Fioricet with Codeine 50- 325-40-30 mg Oral capsule - take 1 capsule by ORAL route every 4 hours as needed not to exceed 6 capsules per 24hrs; 20 capsule. Levaquin 750 mg Oral Tablet - take 1 tablet by ORAL route once daily for 10 days; 10 tablet. Ciprodex 0.3- 0.1 % Otic Drops, Suspension - instill 4 drops by OTIC route every 12 hours for 7 days to left ear only; 1 Container. Bactrim DS 800- 160 mg Oral Tablet - take 1 tablet by ORAL route every 12 hours for 10 days; 20 tablet. - Medication Reconciliation Form, Thank You Letter, Antibiotic Education, Prescription Opioid Use, Work release form form. - Follow up: John Vazquez DO; When: 2 - 3 days; Reason: Recheck today's complaints, Continuance of care, Re-evaluation by your physician. Follow up: Flavia Lane MD; When: 2 - 3 days; Reason: Recheck today's complaints, Re-evaluation by your physician. - Problem is new. - Symptoms have improved. Signatures: Talon Whitt MD MD cha Calderon, Audri, RN RN aa5 Leti Flor RN RN tw2 Lety Otero RN RN jl7 Corrections: (The following items were deleted from the chart) 09:36 09:00 06/06/2020 09:00 Discharged to Home. Impression: Otitis media, unspecified, left jl7 ear; Otitis externa; Migraine. Condition is Stable. Forms are Medication Reconciliation Form, Thank You Letter, Antibiotic Education, Prescription Opioid Use. Follow up: John Vazquez; When: 2 - 3 days; Reason: Recheck today's complaints, Continuance of care, Re-evaluation by your physician. Follow up: Flavia Lane; When: 2 - 3 days; Reason: Recheck today's complaints, Re-evaluation by your physician. Problem is new. Symptoms have improved. sin
--- OUTSIDE RECORDS SUMMARY | 2020-06-06 09:14 | XMS REPORT | Clinical Summary ---
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
--- OUTSIDE RECORDS SUMMARY | 2020-06-06 09:14 | XMS REPORT | Continuity of Care Document ---
:[address] [facility] t Address [address] [place] [address] Care Team Providers Name Role Phone Asked, [...] Clinician Date Syncope Syncope Disease Active 2017-08 [place] 0-14 Methodi 00:00: st 00 Cubital Cubital [...] sleep e sleep ity of apnea, apnea, [place] adult adult Physici ans Migraine Migraine Problem Active Unive rs headache headache [facility] of [place] [facility] Chronic Chronic Problem Active Univers GERD GERD [facility] [place] [facility] ans History of History of Problem Resolve Univers arthritis arthritis d [facility] [place] [facility] History of History of Problem Resolve Univers asthma asthma d [facility] [place] [facility] ans History of History of Problem [...] History Uni versity of Family Member cerebrovascular [place] [facility] accident (CVA) Social History Social Habit Start Date Stop Date Quantity Comments Source Sex Assigned At [facility] [place] ethodi Tobacco use and 2018-05-25 2018-05-25 Never used [facility] [place] ethodist exposure 00:00:00 00:00:00 Alcohol intake 2018-05-25 2018-05-25 Current [facility] thodist 00:00:00 00:00:00 non-drinker of alcohol (finding) History of 2018-04-25 [facility] [place] [facility]:00 Smoking Status Start Date Stop Date Source Former smoker 2018-05-25 00:00:00 2018-05-25 00:00:00 [facility] Medications Ordered Filled Start Stop Current Ordering Indication Dosage Frequency Signature Comments Components Source Medication Medication Date Date Medication? Clinician (SIG) Name Name Marysol Carrilloethazin 2019-0 2020- No Norah [address] [facility] [address] e HCl e HCl 4-28 05-03 [place] as needed [facility] - 00:[facility]: 00:00 for n/v [facility]oria 00 :00 l [facility] SUMAtriptan SUMAtriptan Yes POURAN inject PRN Univers Succinate 6 Succinate 6 2-21 BENJA onset of ity of MG/0.5ML MG/0.5ML 00:00: M.D. the [place] Subcutaneou Subcutaneou 00 cluster Physici s Solution [...] [place] as needed [facility] Losartan Losartan Yes Norah [address] Potassium-H Potassium-H [place] [facility] - CTZ CTZ Memoria l [facility] Hydrocodone Hydrocodone Yes Norah [address] [address] -Acetaminop -Acetaminop [place] as needed [facility] - hen hen [facility]oria l [facility] Adderall XR Adderall XR Yes Norah [address] [facility] [place] in the [facility] - morning Memoria l [facility] Omeprazole Omeprazole Yes Norah [address] [facility] [address] [place] 30 minutes [facility] - before Memoria morning l meal [facility] Dicyclomine Dicyclomine Yes Norah [address] HCl HCl Maulik [facility] Outpat[facility] ent Clinics Immunizations Ordered Immunization Filled Immunization Date Status Commen ts Source Name Name Taryn Quadrivalent 2018-06-03 Completed Univ ersity of 0.5 ML Intramuscular 14:35:00 [place] [facility] Suspension Vital Signs Vital Name Observation Time Observation Value Comments Source BP Systolic 2018-10-02 155 mm[Hg] Location: [facility] ::00 Position: [place] Phys[facility] s Sitting BP Diastolic 2018-10-02 88 mm[Hg] Location: [facility] :: Position: [place] Physician s Sitting Height 2018-10-02 75 [in_us] [facility] :26:00 [place] Phys[facility] s Weight 2018-10-02 302 [lb_av] [facility] :: [place] Physician s Body Mass Index 2018-10-02 37.75 kg/m2 University o f Calculated 15:26:00 [place] Phys[facility] s Temperature 2018-10-02 98 [degF] Method: Oral [facility] :: [place] Physician s Heart Rate 2018-10-02 63 /min Location: [facility] ::00 Apical; [place] [facility] BP Systolic 2018-09-25 154 mm[Hg] Location: [facility] ::00 Position: [place] Physician s Sitting BP Diastolic 2018-09-25 98 mm[Hg] Location: [facility] ::00 Position: [place] Physician s Sitting Heart Rate 2018-09-25 70 /min Quality: Normal University o f 10:26:00 [place] [facility] s BP Systolic 2018-09-25 169 mm[Hg] Location: [facility] :25:00 Position: [place] Physician s Sitting BP Diastolic 2018-09-25 65 mm[Hg] Location: [facility] :25:00 Position: [place] Physician s Sitting Heart Rate 2018-09-25 67 /min Quality: Normal University o f 10:25:00 [place] Phys[facility] s Height 2018-09-25 75 [in_us] University of 10:25:00 [place] [facility] s Weight 2018-09-25 295 [lb_av] [facility] 10:25:00 [place] [facility] s Body Mass Index 2018-09-25 36.87 kg/m2 University o f Calculated 10:25:00 [place] Phys[facility] s Temperature 2018-09-25 98.3 [degF] Method: Oral University 10:25:00 [place] [facility] O2 SAT 2018-09-25 99 % University 10:25:00 [place] [facility] s BP Systolic 2018-06-03 136 mm[Hg] Location: [facility] ::00 Position: [place] Physician s Sitting BP Diastolic 2018-06-03 75 mm[Hg] Location: [facility] :: Position: [place] [facility]ician s Sitting Height 2018-06-03 75 [in_us] University ::00 [place] [facility] Weight 2018-06-03 317 [lb_av] University :: [place] [facility] Body Mass Index 2018-06-03 39.62 kg/m2 University o f Calculated 14:: [place] [facility] Temperature 2018-06-03 97.9 [degF] Method: Oral [facility] :: [place] [facility] Heart Rate 2018-06-03 74 /min [facility] :: [place] [facility] s Procedures Procedure Date / Time Performing Clinician Source Performed [U] XRAY KNEE 4 OR MORE 2018-07-24 00:00:00 [facility] VWS RIGHT [id number] Physicians Emg/Ncv 2018-06-20 00:00:00 [place] o f [place] [facility] H Sleep Lab - Sleep 2018-06-03 00:00:00 [facility] Study Split Night Physicians History of Cubital tunnel [facility] repair Physicians History of Appendectomy [facility] Physicians History of Wrist surgery [facility] Physicians History of [facility] Hemorrhoidectomy Physicians Plan of Care Planned Activity Planned Date Details Comments Source Future Scheduled 2020-03-12 INFLUENZA VACCINE [place] [facility] Test 00:00:00 [code = INFLUENZA VACCINE] Diagnostic Test 2018-06-20 Emg/Ncv [code = [facility] [place] Pending 00:00:00 Emg/Ncv] Physicians Diagnostic Test 2018-06-20 Emg/Ncv [code = [facility] [place] Pending 00:00:00 Emg/Ncv] Physicians Encounters Start End Encounter Admission Attending Care Care Encounter Source Date/Time Date/Time Type Type Clinicians Facility Department ID 2020-05-23 2020-05-23 Outpatient [facility]MLC [facility] [id number] [facility] 2020-02-24 2020-02-24 [facility] [id number] 14:42:00 14:42:[address] [place] [address] [facility] - [facility] Outpati ent Clinics 2020-02-22 2020-02-22 [facility] [id number] 13:51:00 13:51:[address] [facility] [address] [place] - Road [facility] Outpati ent Clinics 2019-12-10 2019-12-10 [facility] [id number] 15:39:00 15:39:00 t [facility] - Road [facility] Medicine Outpati ent Clinics 2019-12-08 2019-12-08 [facility] [id number] 13:40:00 13:40:00 [facility] - [facility] 2019-12-07 2019-12-07 [facility] [id number] 12:05:00 12:05:00 t [facility] s - Road [facility] Outpati ent Clinics 2019-11-16 2019-11-16 [facility] [id number] 11:00:00 11:00:00 [facility] Clin[facility] 2019-10-21 2019-10-21 Emergency Blaire Guevara [facility] [id number] 11:24:16 14:51:00 Sintia Armstrong [id number] [place] [id number] [place] [id number] 2019-09-29 2019-09-29 [facility] [id number] 09:21:00 09:21:00 t [facility] 2019-09-21 2019-09-21 [facility] [id number] 14:00:00 14:00:00 t [facility] Clinics 2019-03-13 2019-03-13 Appointmen [facility] [id number] Univers 09:00:00 09:00:00 t; Lesa RODRIGUEZ y Mirna Ho Physici M.D. ans 2018-10-02 2018-10-02 Appointmen BENJA [facility] [id number] Univers 15:00:00 15:00:00 t; Asher JONES M.D. [place] Valery JONES M.D. ans 2018-09-25 2018-09-25 Appointmen MARCIAL [facility] [id number] Univers 10:30:00 10:30:00 t; BRANT CEJA NP Health and Luz NP Wellness [facility] Valery Scott ans 2018-09-22 2018-09-22 Appointmen BENJA [facility] [id number] Univers 15:30:00 15:30:00 t; Asher JONES M.D. [place] Val[place] JONES M.D. ans 2018-08-22 2018-08-22 App[facility] [id number] Univers 09:30:00 09:30:00 t; Lesa BRYANT y of Mirna MUNOZ Physici M.D. ans 2018-07-29 2018-07-29 Appointmen TAMMY [facility] [id number] Univers 14:30:00 14:30:00 t; Lesa BRYANT y of TAMMY [place] Valery BRYANT M.D. ans 2018-07-25 2018-07-25 Appointmen KESHIA [facility] Orthopedics [id number] Univers 10:30:00 10:30:00 t; Lesa BRITT [facility] y of KESHIA [place] Valery BRITT M.D. ans 2018-07-22 2018-07-22 Appointmen TAMMY [facility] [id number] Univers 11:15:00 11:15:00 t; Lesa BRYANT [facility] sadiey TAMMY Orthopedics Norberto Valery BRYANT M.D. ans 2018-07-15 2018-07-15 [facility] [id number] Univers 10:30:00 10:30:00 t; Lesa BRYANT [facility], Orthopedics Norberto as Valery BRYANT M.D. ans 2018-07-09 2018-07-09 Appointmen TAMMY [facility] [id number] Univers 13:00:00 13:00:00 t; Lesa BRYANT it [place], [place] Valery BRYANT M.D. ans 2018-06-30 2018-06-30 [facility] [id number] Univers 10:15:00 10:15:00 t; Lesa BRYANT [facility], Orthopedics Norberto as Valery BRYANT M.D. ans 2018-06-20 2018-06-20 [facility] [id number] Univers 13:40:00 13:40:00 t; SHANE MONROE [facility], [place] SHANE MONROE Physi ci ans 2018-06-19 2018-06-19 [facility] [id number] Univers 08:15:00 08:15:00 t; SERJIO HUERTA D.O. ity [place], [place] Clarissa Physicsp ans 2018-06-17 2018-06-17 [facility] [id number] Univers 15:45:00 15:45:00 t; Lesa BRYANT [facility], Orthopedics Norberto as Valery BRYANT M.D. ans 2018-06-03 2018-06-03 App[facility] [id number] Univers 13:45:00 13:45:00 t; SERJIO HUERTA D.O. [facility] [place] X[facility]e Physici ans Results Test Description Test Time Test Comments Results Result Sour e Comments [U] XRAY ELBOW 2 2018-06-17 Images Universi ty of VWS RIGHT [id number] 15:57:00 acquired, not [place] reported on Physicians this accession number. [U] XRAY WRIST 2018-06-17 Images University of MIN 3 VWS RIGHT 15:57:00 acquired, not [place] [id number] reported on Physicians this accession number.
[2020-06-06] MEDS ORDERED: SMZ./TMP. 800/160 MG TABLET ONE (09:15)
[2020-06-06] MEDS ORDERED: PROMETHAZINE INJ 25 MG/ML AMP ONE (09:15)
[2020-06-06] MEDS ORDERED: levoFLOXacin 500 MG TAB ONE (09:15)
[2020-06-06] MEDS ORDERED: CEFTRIAXONE 1000 MG/VIAL ONE (09:15)
[2020-06-06] MEDS ORDERED: MEPERIDINE HCL 50 MG/ML ONE (09:15)
[2020-06-06] MEDS ORDERED: Gatifloxacin Ophth 0.5% (2.5 ML BTL) OPTH ONE (09:15)
--- OUTSIDE RECORDS SUMMARY | 2020-06-06 09:15 | XMS REPORT ---
:1980 Author Organization [facility] Address [address] [place], [address] [place] [address] Care Team Providers Name Role Phone Vazquez Unavailable [phone] PROBLEMS Type Condition ICD9-CM VFR57-UB Onset Condition SNOMED Code Notes Code Code Dates Status Problem Non-seasonal J30.89 Active 69296408 allergic rhinitis, unspecified trigger Problem Mild intermittent J45.20 Active 204729989 asthma with allergic rhinitis, unspecified whether complicated Problem Depression with F41.8 Active 780316050 anxiety Problem Migraine without G43.009 Active 523796538 aura and without status migrainosus, not intractable Problem Attention deficit F90.2 Active 04012197 hyperactivity disorder (ADHD), combined type Problem Primary M17.11 Active 176242212148690 osteoarthritis of right knee Problem Pain in right M25.561 Active 54613386 knee Problem Left maxillary J32.0 Active 11903550 sinusitis Problem Hypertension, I10 Active 76959770 unspecified type Problem GERD without K21.9 Active 927439604 esophagitis Problem Tobacco use F17.200 Active 462091364 disorder Problem Other chronic G89.29 Active 90079321 pain Problem Mixed E78.2 Active 253058649 hyperlipidemia ALLERGIES No Known Allergies ENCOUNTERS from 1980 to 2020-05-23 Encounter Location Date Provider Diagnosis [facility] [address] [place] JUANJOSE May, John Vazquez Non -recurrent acute Family Medicine [address], [place] [address] of both ears H 65.03 and Left maxill brandon sinusitis J32.0 IMMUNIZATIONS Vaccine Route Administration Date Status Bupivicaine [place] Unknown November 16, 2019 Administered Kenalog (Triamcinolone) [...] nerve transplant-dont have ful l strength in 2033-6163 either arm Surgical History Tendonitis 2016 Surgical [...] Name:John Vazquez, 2020-08-30 0 9:30:00 AM, [address], [address], [place], [address], Insurance Providers Payer Name Payer Payer Insured Patient Coverage Coverage End Address Phone Name Relationship to Start Date [employer] e [employer] [phone] TashiArvind self [address] [employer] [id number] [address] [facility] [address]
[2020-06-06] MEDS ORDERED: LIDOCAINE 1% MPF 2 ML AMPULE ONE (09:16)
[2020-06-06 09:41] VITALS: TEMP 98.3
[2020-06-06 09:43] VITALS: BP 141/85; O2SAT 100
== END 2020-06-06 09:36 | disposition home or self-care (01) ==
LOC: ER 08:35
DX: H66.92 Otitis media, unspecified, left ear (principal); H60.92 Unspecified otitis externa, left ear; G43.909 Migraine, unspecified, not intractable, without status migrainosus; I10 Essential (primary) hypertension
CPT/HCPCS: 96372; 99283; J2550; J2175; J2001

== ENCOUNTER 2020-06-17 20:19 | Emergency (ER) | payer OTHER ==
--- OUTSIDE RECORDS SUMMARY | 2020-06-17 20:22 | XMS REPORT ---
:1980 Author Organization [facility] Address [address] [place], [address] [place] [address] Care Team Providers Name Role Phone Vazquez Unavailable [phone] PROBLEMS Type Condition ICD9-CM KSG82-PT Onset Condition SNOMED Code Notes Code Code Dates Status Problem Non-seasonal J30.89 Active 37394914 allergic rhinitis, unspecified trigger Problem Mild intermittent J45.20 Active 759038176 asthma with allergic rhinitis, unspecified whether complicated Problem Depression with F41.8 Active 824776970 anxiety Problem Migraine without G43.009 Active 764293828 aura and without status migrainosus, not intractable Problem Attention deficit F90.2 Active 94517268 hyperactivity disorder (ADHD), combined type Problem Primary M17.11 Active [id number] osteoarthritis of right knee Problem Pain in right M25.561 Active 91251225 knee Problem Left maxillary J32.0 Active 62842342 sinusitis Problem Hypertension, I10 Active 38873895 unspecified type Problem GERD without K21.9 Active 832711978 esophagitis Problem Tobacco use F17.200 Active 591422134 disorder Problem Other chronic G89.29 Active 71093227 pain Problem Mixed E78.2 Active 258522494 hyperlipidemia ALLERGIES No Known Allergies ENCOUNTERS from 1980 to 2020-05-23 Encounter Location Date Provider Diagnosis [facility] [address] Drake [place] May, John Vazquez Non -recurrent acute Family Medicine [address], [place] [address] of both ears H 65.03 and Left maxill brandon sinusitis J32.0 IMMUNIZATIONS Vaccine Route Administration Date Status Bupivicaine [place] Unknown November 16, 2019 Administered Kenalog (Triamcinolone) [...] nerve transplant-dont have ful l strength in [id number] either arm Surgical History Tendonitis 2016 Surgical [...] Name:John Vazquez, 2020-08-30 0 9:30:00 AM, [address], [address], [place], [address], Insurance Providers Payer Name Payer Payer Insured Patient Coverage Coverage End Address Phone Name Relationship to Start Date Fracisco e Insured COMM[employer]ITY [phone] TashiArvind self 2018 [employer] [id number] [facility] [address]
--- OUTSIDE RECORDS SUMMARY | 2020-06-17 20:22 | XMS REPORT | Continuity of Care Document ---
:1980 Author Organization [facility] t Address [address] [place] [address] Care Team Providers Name Role Phone Asked, [...] Clinician Date Syncope Syncope Disease Active 2017-08 [place] 0-14 Methodi 00:00: st 00 Cubital Cubital [...] sleep e sleep ity of apnea, apnea, [place] adult adult Physici ans Migraine Migraine Problem Active Unive rs headache headache ity of [place] Physici ans Chronic Chronic Problem Active Univers GERD GERD ity of [place] [facility] ans History of History of Problem Resolve Univers arthritis arthritis d ity of [place] [facility] ans History of History of Problem Resolve Univers asthma asthma d ity of [place] [facility] ans History of History of Problem [...] History Uni versity of Family Member cerebrovascular [place] [facility] accident (CVA) Social History Social Habit Start Date Stop Date Quantity Comments Source Sex Assigned At [facility] ethodi Tobacco use and 2018-05-25 2018-05-25 Never used [facility] ethodist exposure 00:00:00 00:00:00 Alcohol intake 2018-05-25 2018-05-25 Current [facility] thodist 00:00:00 00:00:00 non-drinker of alcohol (finding) History of 2018-04-25 [facility] Smoking Status Start Date Stop Date Source Former smoker 2018-05-25 00:00:00 2018-05-25 00:00:00 [facility] Medications Ordered Filled Start Stop Current Ordering Indication Dosage Frequency Signature Comments Components Source Medication Medication Date Date Medication? Clinician (SIG) Name Name Marysol Carrilloethazin 2019-0 2020- No Norah [address] [facility] e HCl e HCl 4-28 05-03 [place] as needed [facility]: [facility] for n[facility]v [facility] SUMAtriptan SUMAtriptan Yes POURAN inject PRN Univers Succinate 6 Succinate 6 2-21 BENJA onset of ity of MG/0.5ML MG/0.5ML 00:00: M.D. the [place] Subcutaneou Subcutaneou 00 cluster Physici s Solution [...] [place] as needed [facility] Losartan Losartan Yes Norah [address] Potassium-H Potassium-H [place] [facility] CTZ CTZ [facility] Hydrocodone Hydrocodone Yes Norah [address] [facility] [address] -Acetaminop -Acetaminop [place] as needed [facility] Adderall XR Adderall XR Yes Norah [address] [facility] [place] in the [facility] - morning [facility] Omeprazole Omeprazole Yes Norah [address] [facility] [place] 30 minutes [facility] - before Memoria morning l meal [facility] Dicyclomine Dicyclomine Yes Norah [address] [facility] HCl HCl Maulik [facility] Clinics Immunizations Ordered Immunization Filled Immunization Date Status Commen ts Source Name Name Taryn Quadrivalent 2018-06-03 Completed Univ ersity of 0.5 ML Intramuscular 14:35:00 [place] Vital Signs Vital Name Observation Time Observation Value Comments Source BP Systolic 2018-10-02 155 mm[Hg] Location: [facility] ::00 Position: [place] Physician s Sitting BP Diastolic 2018-10-02 88 mm[Hg] Location: [facility] :: Position: [place] Physician s Sitting Height [...] s BP Systolic 2018-09-25 154 mm[Hg] Location: [facility] ::00 Position: [place] Physician s Sitting BP Diastolic 2018-09-25 98 mm[Hg] Location: [facility] ::00 Position: [place] Physician s Sitting Heart Rate 2018-09-25 70 /min Quality: Normal University o f 10:26:00 [place] Physician s BP Systolic 2018-09-25 169 mm[Hg] Location: [facility] :25:00 Position: [place] Physician s Sitting BP Diastolic 2018-09-25 65 mm[Hg] Location: [facility] :25:00 Position: [place] Physician s Sitting Heart Rate 2018-09-25 67 /min Quality: Normal University o f 10:25:00 [place] Phys[facility] s Height 2018-09-25 75 [in_us] University of 10:25:00 [place] [facility] s Weight 2018-09-25 295 [lb_av] [facility] 10:25:00 [place] [facility] s Body Mass Index 2018-09-25 36.87 kg/m2 University o f Calculated 10:25:00 [place] Phys[facility] s Temperature 2018-09-25 98.3 [degF] Method: Oral University 10:25:00 [place] [facility] s O2 SAT 2018-09-25 99 % University 10:25:00 [place] Phys[facility] s BP Systolic 2018-06-03 136 mm[Hg] Location: [facility] ::00 Position: [place] Physician s Sitting BP Diastolic 2018-06-03 75 mm[Hg] Location: [facility] :: Position: [place] Physician s Sitting Height 2018-06-03 75 [in_us] University ::00 [place] Phys[facility] s Weight 2018-06-03 317 [lb_av] University :: [place] [facility]ician s Body Mass Index 2018-06-03 39.62 kg/m2 University o f Calculated 14:: [place] [facility] s Temperature 2018-06-03 97.9 [degF] Method: Oral [facility] :: [place] [facility] s Heart Rate 2018-06-03 74 /min [facility] :: [place] Physician s Procedures Procedure Date / Time Performing Clinician Source Performed [U] XRAY KNEE 4 OR MORE 2018-07-24 00:00:00 [facility] VWS RIGHT [id number] Physicians Emg/Ncv 2018-06-20 00:00:00 [facility] f [place] [facility] H Sleep Lab - Sleep 2018-06-03 00:00:00 [facility] Study Split Night Physicians History of Cubital tunnel [facility] repair Physicians History of Appendectomy [facility] Physicians History of Wrist surgery [facility] Physicians History of [facility] Hemorrhoidectomy Physicians Plan of Care Planned Activity Planned Date Details Comments Source Future Scheduled 2020-03-12 INFLUENZA VACCINE [place] [facility] Test 00:00:00 [code = INFLUENZA VACCINE] Diagnostic Test 2018-06-20 Emg/Ncv [code = [facility] [place] Pending 00:00:00 Emg/Ncv] Physicians Diagnostic Test 2018-06-20 Emg/Ncv [code = [facility] [place] Pending 00:00:00 Emg/Ncv] Physicians Encounters Start End Encounter Admission Attending Care Care Encounter Source Date/Time Date/Time Type Type Clinicians Facility Department ID 2020-05-23 2020-05-23 Outpatient [facility]MLC [facility] [id number] [facility] 2020-02-24 2020-02-24 [facility] [id number] 14:42:00 14:42:[address] [place] [address] [facility] - [facility] 2020-02-22 2020-02-22 [facility] [id number] 13:51:00 13:51:00 t [facility] [address] [place] [facility] - [facility] 2019-12-10 2019-12-10 [facility] [id number] 15:39:00 15:39:00 t [facility] s - Road [facility] Medicine Outpati ent Clinics 2019-12-08 2019-12-08 [facility] [id number] 13:40:00 13:40:00 t [facility] s - Road [facility] 2019-12-07 2019-12-07 [facility] [id number] 12:05:00 12:05:00 t [facility] s - Road [facility] 2019-11-16 2019-11-16 [facility] [id number] 11:00:00 11:00:00 [facility] Clinics 2019-10-21 2019-10-21 Emergency Blaire Guevaar [facility] [id number] 11:24:16 14:51:00 Sintia Armstrong [id number] [place] [id number] [place] [id number] 2019-09-29 2019-09-29 [facility] [id number] 09:21:00 09:21:00 [facility] ent [facility] 2019-09-21 2019-09-21 [facility] [id number] 14:00:00 14:00:00 [facility] ent Clinics 2019-03-13 2019-03-13 [facility] [id number] Univers 09:00:00 09:00:00 t; Lesa RODRIGUEZ y Mirna Ho Physici M.D. ans 2018-10-02 2018-10-02 Appointmen BENJA [facility] [id number] Univers 15:00:00 15:00:00 t; Asher JONES M.D. [place] Valery JONES M.D. ans 2018-09-25 2018-09-25 Appointmen MARCIAL [facility] [id number] Univers 10:30:00 10:30:00 t; BRANT CEJA NP Health and Luz NP Wellness [facility] Valery Scott ans 2018-09-22 2018-09-22 Appointmen BENJA [facility] [id number] Univers 15:30:00 15:30:00 t; Asher JONES M.D. [place] Valery JONES M.D. ans 2018-08-22 2018-08-22 App[facility]men [facility] [id number] Univers 09:30:00 09:30:00 t; Lesa BRYANT y of Mirna MUNOZ Physici M.D. ans 2018-07-29 2018-07-29 Appointmen [facility] [id number] Univers 14:30:00 14:30:00 t; Lesa BRYANT y of TAMMY [place] Valery BRYANT M.D. ans 2018-07-25 2018-07-25 Appointmen [facility] Orthopedics [id number] Univers 10:30:00 10:30:00 t; Lesa BRITT [facility] y of KESHIA [place] Valery BRITT M.D. ans 2018-07-22 2018-07-22 Appointmen TAMMY [facility] [id number] Univers 11:15:00 11:15:00 t; Lesa BRYANT [facility] sadiey TAMMY Orthopedics [place]ber[place] Valery BRYANT M.D. ans 2018-07-15 2018-07-15 [facility] [id number] Univers 10:30:00 10:30:00 t; Lesa BRYANT [facility], Orthopedics Norberto as Valery BRYANT M.D. ans 2018-07-09 2018-07-09 Appointmen [facility] [id number] Univers 13:00:00 13:00:00 t; Lesa BRYANT it [place], [place] Valery BRYANT M.D. ans 2018-06-30 2018-06-30 [facility] [id number] Univers 10:15:00 10:15:00 t; Lesa BRYANT [facility], Orthopedics Norberto as Valery BRYANT M.D. ans 2018-06-20 2018-06-20 [facility] [id number] Univers 13:40:00 13:40:00 t; SHANE MONROE [facility], Orthopedics [place] SHANE MONROE Physi ci ans 2018-06-19 2018-06-19 Appointmen [facility] [id number] Univers 08:15:00 08:15:00 t; SERJIO HUERTA D.O. ity [place], [place] Clarissa Physicsp ans 2018-06-17 2018-06-17 [facility] [id number] Univers 15:45:00 15:45:00 t; Lesa BRYANT [facility], Orthopedics Norberto as Valery BRYANT M.D. ans 2018-06-03 2018-06-03 [facility] [id number] Univers 13:45:00 13:45:00 t; SERJIO HUERTA D.O. [facility] [place], [place] XeniaOClemente Physici ans Results Test Description Test Time Test Comments Results Result Sour e Comments [U] XRAY ELBOW 2 2018-06-17 Images Universi ty of VWS RIGHT [id number] 15:57:00 acquired, not [place] reported on Physicians this accession number. [U] XRAY WRIST 2018-06-17 Images University of MIN 3 VWS RIGHT 15:57:00 acquired, not [place] [id number] reported on Physicians this accession number.
--- OUTSIDE RECORDS SUMMARY | 2020-06-17 20:22 | XMS REPORT | Clinical Summary ---
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
--- NOTE | 2020-06-17 20:46 | EDPHYS ---
Physician Documentation [facility] Name: Terry Akins Sr Age: 40 yrs Sex: Male : 1980 Arrival Date: 06/17/2020 Time: 20:21 Bed 18 Private MD: ED Physician Jordin Guillaume HPI: 06/17 20:49 This 40 yrs old Black Male presents to ER via Ambulatory with complaints of Arm Pain. snw 20:49 The patient or guardian complains of decreased range of motion, pain, that is acute, snw tenderness. The complaints affect the left elbow. Context: resulted from. Onset: The symptoms/episode began/occurred gradually, 3 day(s) ago, and became worse. Associated signs and symptoms: Pertinent positives: decreased range of motion, pain, weakness. Severity of symptoms: At their worst the symptoms were moderate, severe. The patient has experienced similar episodes in the past. It is unknown whether or not the patient has recently seen a physician. Historical: - Allergies: 20:38 No Known Allergies; jb4 - Home Meds: 20:38 None [Active]; jb4 - PMHx: 20:38 carpal tunnel; GERD; Hypertension; jb4 - PSHx: 20:38 Appendectomy; jb4 - Immunization history:: Adult Immunizations up to date. - Social history:: Smoking status: Patient reports the use of cigarette tobacco products, Patient uses alcohol, occasionally. Patient/guardian denies using street drugs. ROS: 20:50 Constitutional: Negative for fever, chills, and weight loss, Eyes: Negative for injury, snw pain, redness, and discharge, ENT: Negative for injury, pain, and discharge, Neck: Negative for injury, pain, and swelling, Cardiovascular: Negative for chest pain, palpitations, and edema, Respiratory: Negative for shortness of breath, cough, wheezing, and pleuritic chest pain, Abdomen/GI: Negative for abdominal pain, nausea, vomiting, diarrhea, and constipation, Back: Negative for injury and pain, : Negative for injury, bleeding, discharge, and swelling, Skin: Negative for injury, rash, and discoloration, Neuro: Negative for headache, weakness, numbness, tingling, and seizure, Psych: Negative for depression, anxiety, suicide ideation, homicidal ideation, and hallucinations. 20:50 MS/extremity: Positive for injury or acute deformity, pain, swelling, tenderness, of the left elbow. Exam: 20:50 Constitutional: This is a well developed, well nourished patient who is awake, alert, snw and in no acute distress. Head/Face: Normocephalic, atraumatic. Eyes: Pupils equal round and reactive to light, extra-ocular motions intact. Lids and lashes normal. Conjunctiva and sclera are non-icteric and not injected. Cornea within normal limits. Periorbital areas with no swelling, redness, or edema. ENT: Nares patent. No nasal discharge, no septal abnormalities noted. Tympanic membranes are normal and external auditory canals are clear. Oropharynx with no redness, swelling, or masses, exudates, or evidence of obstruction, uvula midline. Mucous membranes moist. Neck: Trachea midline, no thyromegaly or masses palpated, and no cervical lymphadenopathy. Supple, full range of motion without nuchal rigidity, or vertebral point tenderness. No Meningismus. Chest/axilla: Normal chest wall appearance and motion. Nontender with no deformity. No lesions are appreciated. Cardiovascular: Regular rate and rhythm with a normal S1 and S2. No gallops, murmurs, or rubs. Normal PMI, no JVD. No pulse deficits. Respiratory: Lungs have equal breath sounds bilaterally, clear to auscultation and percussion. No rales, rhonchi or wheezes noted. No increased work of breathing, no retractions or nasal flaring. Abdomen/GI: Soft, non-tender, with normal bowel sounds. No distension or tympany. No guarding or rebound. No evidence of tenderness throughout. Back: No spinal tenderness. No costovertebral tenderness. Full range of motion. Skin: Warm, dry with normal turgor. Normal color with no rashes, no lesions, and no evidence of cellulitis. Neuro: Awake and alert, GCS 15, oriented to person, place, time, and situation. Cranial nerves II-XII grossly intact. Motor strength 5/5 in all extremities. Sensory grossly intact. Cerebellar exam normal. Normal gait. Psych: Awake, alert, with orientation to person, place and time. Behavior, mood, and affect are within normal limits. 20:50 Musculoskeletal/extremity: Extremities: grossly normal except: noted in the point tenderness over lateral epicondyle: Circulation is intact in all extremities. Sensation intact. Compartment Syndrome exam of affected extremity: is normal. Vital Signs: 20:25 BP 151 / 85; Pulse 82; Resp 16; Temp 98.4(O); Pulse Ox 100% on R/A; Weight 135.17 kg jb4 (R); Height 6 ft. 3 in. (190.50 cm) (R); Pain 10/10; 20:25 Body Mass Index 37.25 (135.17 kg, 190.50 cm) jb4 MDM: 20:31 Patient medically screened. snw 20:48 Data reviewed: vital signs, nurses notes. Data interpreted: Pulse oximetry: on room air snw is 100 %. Interpretation: normal. Counseling: I had a detailed discussion with the patient and/or guardian regarding: the historical points, exam findings, and any diagnostic results supporting the discharge/admit diagnosis, the need for outpatient follow up, to return to the emergency department if symptoms worsen or persist or if there are any questions or concerns that arise at home. Special discussion: I have referred the patient to see his PCP for further evaluation of high blood pressure. Based on the history and exam findings, there is no indication for further emergent testing or inpatient evaluation. I discussed with the patient/guardian the need to see the orthopedic surgeon for further evaluation of the symptoms. I discussed with the patient/guardian the need to see the primary care provider for further evaluation of the symptoms. Administered Medications: 21:20 Drug: Gabapentin 300 mg Route: PO; jb4 21:31 Follow up: Response: Medication administered at discharge. jb4 21:20 Drug: predniSONE 40 mg Route: PO; jb4 21:31 Follow up: Response: Medication administered at discharge. jb4 21:20 Drug: Pepcid 20 mg Route: PO; jb4 21:31 Follow up: Response: Medication administered at discharge. jb4 21:20 Drug: [place] 5 mg-325 mg 1 tabs Route: PO; jb4 21:31 Follow up: Response: No adverse reaction; Medication administered at discharge. jb4 Disposition: 06/18 05:20 Co-signature as Attending Physician, Jordin Guillaume MD I agree with the assessment and 4 plan of care. Disposition: 06/17/20 20:45 Discharged to Home. Impression: Lateral epicondylitis, left elbow, Neuropathy. - Condition is Stable. - Discharge Instructions: Tennis Elbow, Neuropathic Pain, Cryotherapy, Heat Therapy. - Prescriptions for Prednisone 20 mg Oral Tablet - take 2 tablet by ORAL route once daily for 5 days; 10 tablet. Pepcid 20 mg Oral Tablet - take 1 tablet by ORAL route once daily; 20 tablet. Ultram 50 mg Oral Tablet - take 1 tablet by ORAL route every 6 hours As needed; 12 tablet. - Medication Reconciliation Form, Thank You Letter, Antibiotic Education, Prescription Opioid Use form. - Follow up: Emergency Department; When: As needed; Reason: Worsening of condition. Follow up: Private Physician; When: 2 - 3 days; Reason: Recheck today's complaints, Continuance of care, Re-evaluation by your physician. Signatures: Jenn Obregon FNP-C VP TRANSPORTATION-[employer] George Kim, RN RN jb4 Jordin Guillaume MD MD tw4 Corrections: (The following items were deleted from the chart) 06/17 21:32 20:45 06/17/2020 20:45 Discharged to Home. Impression: Lateral epicondylitis, left jb4 elbow; Neuropathy. Condition is Stable. Forms are Medication Reconciliation Form, Thank You Letter, Antibiotic Education, Prescription Opioid Use. Follow up: Emergency Department; When: As needed; Reason: Worsening of condition. Follow up: Private Physician; When: 2 - 3 days; Reason: Recheck today's complaints, Continuance of care, Re-evaluation by your physician. snw
--- NOTE | 2020-06-17 20:46 | ER ---
Nurse's Notes [facility] Name: Terry Akins Sr Age: 40 yrs Sex: Male : 1980 Arrival Date: 06/17/2020 Time: 20:21 Bed 18 Private MD: Diagnosis: Lateral epicondylitis, left elbow;Neuropathy Presentation: 06/17 20:25 Chief complaint: Patient states: I overworked my left arm for the past 3 days. I have jb4 nerve problems and it is just shooting pain up to my left shoulder and my left hand. 20:25 Coronavirus screen: Client denies travel out of the [place] in the last 14 days. At this jb4 time, the client does not indicate any symptoms associated with coronavirus-19. Ebola Screen: No symptoms or risks identified at this time. Initial Sepsis Screen: Does the patient meet any 2 criteria? No. Patient's initial sepsis screen is negative. Does the patient have a suspected source of infection? No. Patient's initial sepsis screen is negative. Risk Assessment: Do you want to hurt yourself or someone else? Patient reports no desire to harm self or others. Onset of symptoms was June 14, 2020. Transition of care: patient was not received from another setting of care. 20:25 Method Of Arrival: Ambulatory jb4 20:25 Acuity: SARITHA 4 jb4 Historical: - Allergies: 20:38 No Known Allergies; jb4 - Home Meds: 20:38 None [Active]; jb4 - PMHx: 20:38 carpal tunnel; GERD; Hypertension; jb4 - PSHx: 20:38 Appendectomy; jb4 - Immunization history:: Adult Immunizations up to date. - Social history:: Smoking status: Patient reports the use of cigarette tobacco products, Patient uses alcohol, occasionally. Patient/guardian denies using street drugs. Screenin:30 Abuse screen: Denies threats or abuse. Nutritional screening: No deficits noted. jb4 Tuberculosis screening: No symptoms or risk factors identified. Fall Risk None identified. Assessment: 20:30 General: Appears in no apparent distress. uncomfortable, Behavior is calm, cooperative, jb4 appropriate for age. Pain: Complains of pain in left elbow Pain radiates to anterior aspect of left shoulder and left wrist Pain currently is 10 out of 10 on a pain scale. Quality of pain is described as shooting, Pain began 2-3 days ago. Neuro: Level of Consciousness is awake, alert, obeys commands, Oriented to person, place, time, situation. Cardiovascular: Patient's skin is warm and dry. Respiratory: Airway is patent Respiratory effort is even, unlabored, Respiratory pattern is regular, symmetrical. GI: No signs and/or symptoms were reported involving the gastrointestinal system. : No signs and/or symptoms were reported regarding the genitourinary system. EENT: No signs and/or symptoms were reported regarding the EENT system. Derm: Skin is intact, Skin is pink, warm \T\ dry. Musculoskeletal: Circulation, motion, and sensation intact. Range of motion: intact in all extremities, Swelling present in left elbow. 21:29 Reassessment: Patient appears in no apparent distress at this time. Patient and/or jb4 family updated on plan of care and expected duration. Pain level reassessed. Patient is alert, oriented x 3, equal unlabored respirations, skin warm/dry/pink. Vital Signs: 20:25 BP 151 / 85; Pulse 82; Resp 16; Temp 98.4(O); Pulse Ox 100% on R/A; Weight 135.17 kg jb4 (R); Height 6 ft. 3 in. (190.50 cm) (R); Pain 10/10; 20:25 Body Mass Index 37.25 (135.17 kg, 190.50 cm) jb4 ED Course: 20:21 Patient arrived in ED. bp1 20:30 Jenn Obregon FNP-C is PHCP. snw 20:30 Patient has correct armband on for positive identification. Bed in low position. Call jb4 light in reach. Side rails up X 1. Pulse ox on. NIBP on. 20:31 Jordin Guillaume MD is Attending Physician. snw 20:36 George Kim RN is Primary Nurse. jb4 20:38 Triage completed. jb4 20:38 Arm band placed on right wrist. jb4 21:30 No provider procedures requiring assistance completed. Patient did not have IV access jb4 during this emergency room visit. Administered Medications: 21:20 Drug: Gabapentin 300 mg Route: PO; jb4 21:31 Follow up: Response: Medication administered at discharge. jb4 21:20 Drug: predniSONE 40 mg Route: PO; jb4 21:31 Follow up: Response: Medication administered at discharge. jb4 21:20 Drug: Pepcid 20 mg Route: PO; jb4 21:31 Follow up: Response: Medication administered at discharge. jb4 21:20 Drug: [place] 5 mg-325 mg 1 tabs Route: PO; jb4 21:31 Follow up: Response: No adverse reaction; Medication administered at discharge. jb4 Outcome: 20:45 Discharge ordered by . joby 21:30 Discharged to home ambulatory, with family. jb4 21:30 Condition: stable 21:30 Discharge instructions given to patient, Instructed on discharge instructions, follow up and referral plans. medication usage, Demonstrated understanding of instructions, follow-up care, medications, Prescriptions given X 3. 21:32 Patient left the ED. jb4 Signatures: Jenn Obregon, BATH TESTER-C BATH TESTER-Csnw George Kim, RN RN jb4 Yara Reddy [facility]
[2020-06-17] MEDS ORDERED: GABAPENTIN 300 MG CAP ONE (21:21)
[2020-06-17] MEDS ORDERED: HYDROCODONE/APAP 5/325 MG TAB ONE (21:22)
[2020-06-17] MEDS ORDERED: predniSONE 20 MG TAB ONE ×2 (21:22→21:31)
[2020-06-17] MEDS ORDERED: FAMOTIDINE 20 MG TAB ONE (21:22)
[2020-06-17 21:58] VITALS: BP 151/85; TEMP 98.4; O2SAT 100
== END 2020-06-17 21:32 | disposition home or self-care (01) ==
LOC: ER 20:19
DX: M77.12 Lateral epicondylitis, left elbow (principal); G62.9 Polyneuropathy, unspecified; I10 Essential (primary) hypertension; Z72.0 Tobacco use
CPT/HCPCS: 99283; J7512 ×2

== ENCOUNTER 2020-07-10 22:53 | Emergency (ER) | payer OTHER ==
--- OUTSIDE RECORDS SUMMARY | 2020-07-10 22:55 | XMS REPORT | Clinical Summary ---
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
--- OUTSIDE RECORDS SUMMARY | 2020-07-10 22:55 | XMS REPORT | Continuity of Care Document ---
:1980 Author Organization [facility] t Address [address] [place] [address] Care Team Providers Name Role Phone Asked, [...] Clinician Date Syncope Syncope Disease Active 2017-08 [place] 0-14 Methodi 00:00: st 00 Cubital Cubital [...] Univers essential essential ity of HTN HTN [place] [facility] Obstructiv Obstructiv Problem Active U nivers e sleep e sleep ity of apnea, apnea, [place] adult adult Physici ans Migraine Migraine Problem Active Unive rs headache headache ity of [place] [facility] Chronic Chronic Problem Active Univers GERD GERD ity of [place] [facility] History of History of Problem Resolve Univers arthritis arthritis d [facility] of [place] [facility] History of History of Problem Resolve Univers asthma asthma d [facility]y of [place] [facility] History of History of Problem [...] History Uni versity of Family Member cerebrovascular [place] [facility] accident (CVA) Social History Social Habit Start Date Stop Date Quantity Comments Source Sex Assigned At [facility] ethodi Tobacco use and 2018-05-25 2018-05-25 Never used [facility] ethodist exposure 00:00:00 00:00:00 Alcohol intake 2018-05-25 2018-05-25 Current [facility] thodist 00:00:00 00:00:00 non-drinker of alcohol (finding) History of 2018-04-25 [facility] Smoking Status Start Date Stop Date Source Former smoker 2018-05-25 00:00:00 2018-05-25 00:00:00 [place] [facility] Medications Ordered Filled Start Stop Current Ordering Indication Dosage Frequency Signature Comments Components Source Medication Medication Date Date Medication? Clinician (SIG) Name Name Marysol Promethazin 2019-0 2020- No Norah [address] [facility] e HCl e HCl 4-28 05-03 [place] as needed [facility] - 00:[facility]: 00:00 for n/v [facility] 00 :00 [facility] SUMAtriptan SUMAtriptan Yes POURAN inject PRN Univers Succinate 6 Succinate 6 2-21 BENJA onset of ity of MG/0.5ML MG/0.5ML 00:00: M.D. the [place] Subcutaneou Subcutaneou 00 cluster Physici s Solution [...] [facility] Losartan Losartan Yes Norah [address] Potassium-H Potassium-H [place] [facility] - CTZ CTZ Memoria l [facility] Hydrocodone Hydrocodone Yes Norah [address] [facility] [address] -Acetaminop -Acetaminop [place] as needed [facility] - hen hen [facility] l [facility] Adderall XR Adderall XR Yes Norah [address] [facility] [place] in the [facility] - morning [facility] Omeprazole Omeprazole Yes Norah [address] [facility] [place] 30 minutes [facility] - before Memoria morning l meal [facility] Dicyclomine Dicyclomine Yes Norah [address] [facility] [address] HCl HCl Maulik [facility] ent Clinics Immunizations Ordered Immunization Filled Immunization Date Status Commen ts Source Name Name Taryn Quadrivalent 2018-06-03 Completed Univ ersity of 0.5 ML Intramuscular 14:35:00 [place] [facility] Sus[place] Vital Signs Vital Name Observation Time Observation Value Comments Source BP Systolic 2018-10-02 155 mm[Hg] Location: [facility] ::00 Position: [place] Physician s Sitting BP Diastolic 2018-10-02 88 mm[Hg] Location: [facility] :: Position: [place] Physician s Sitting Height 2018-10-02 75 [in_us] [facility] :26:00 [place] Physician s Weight 2018-10-02 302 [lb_av] [facility] :: [place] Physician s Body Mass Index 2018-10-02 37.75 kg/m2 University o f Calculated 15:26:00 [place] Physician s Temperature 2018-10-02 98 [degF] Method: Oral [facility] ::00 [place] [facility] Heart Rate 2018-10-02 63 /min Location: [facility] ::00 Apical; [place] [facility] BP Systolic 2018-09-25 154 mm[Hg] Location: [facility] ::00 Position: [place] Physician s Sitting BP Diastolic 2018-09-25 98 mm[Hg] Location: [facility] ::00 Position: [place] Physician s Sitting Heart Rate 2018-09-25 70 /min Quality: Normal University o f 10:26:00 [place] Physician s BP Systolic 2018-09-25 169 mm[Hg] Location: [facility] 10:25:00 Position: [place] Physician s Sitting BP Diastolic 2018-09-25 65 mm[Hg] Location: [facility] :25:00 Position: [place] Physician s Sitting Heart Rate 2018-09-25 67 /min Quality: Normal University o f 10:25:00 [place] Phys[facility] s Height 2018-09-25 75 [in_us] [facility] of 10:25:00 [place] [facility] s Weight 2018-09-25 295 [lb_av] University 10:25:00 [place] [facility] Body Mass Index 2018-09-25 36.87 kg/m2 University o f Calculated 10:25:00 [place] [facility] s Temperature 2018-09-25 98.3 [degF] Method: Oral University 10:25:00 [place] [facility] O2 SAT 2018-09-25 99 % University 10:25:00 [place] [facility] BP Systolic 2018-06-03 136 mm[Hg] Location: [facility] :: Position: [place] Physician s Sitting BP Diastolic 2018-06-03 75 mm[Hg] Location: [facility] :: Position: [place] [facility] Sitting Height 2018-06-03 75 [in_us] University :: [place] [facility] s Weight 2018-06-03 317 [lb_av] University :: [place] [facility] Body Mass Index 2018-06-03 39.62 kg/m2 University o f Calculated 14:: [place] [facility] s Temperature 2018-06-03 97.9 [degF] Method: Oral [facility] :: [place] [facility] Heart Rate 2018-06-03 74 /min [facility] :: [place] [facility] s Procedures Procedure Date / Time Performing Clinician Source Performed [U] XRAY KNEE 4 OR MORE 2018-07-24 00:00:00 [facility] VWS RIGHT [id number] Physicians Emg/Ncv 2018-06-20 00:00:00 [place] [facility] [place] [facility] H Sleep Lab - Sleep 2018-06-03 00:00:00 [facility] Study Split Night Physicians History of Cubital tunnel [facility] repair Physicians History of Appendectomy [facility] Physicians History of Wrist surgery [facility] Physicians History of [facility] Hemorrhoidectomy Physicians Plan of Care Planned Activity Planned Date Details Comments Source Future Scheduled 2020-03-12 INFLUENZA VACCINE [place] [facility] Test 00:00:00 [code = INFLUENZA VACCINE] Diagnostic Test 2018-06-20 Emg/Ncv [code = [facility] [place] Pending 00:00:00 Emg/Ncv] Physicians Diagnostic Test 2018-06-20 Emg/Ncv [code = [facility] [place] Pending 00:00:00 Emg/Ncv] Physicians Encounters Start End Encounter Admission Attending Care Care Encounter Source Date/Time Date/Time Type Type Clinicians Facility Department ID 2020-05-23 2020-05-23 Outpatient [facility] [id number] [facility] 2020-02-24 2020-02-24 [facility] [id number] [address] 14:42:00 14:42:[address] [facility] - [address] [facility] Outpati ent Clinics 2020-02-22 2020-02-22 [facility] [id number] 13:51:00 13:51:00 t [facility] - Road [facility] Outpati ent Clinics 2019-12-10 2019-12-10 [facility] [id number] 15:39:00 15:39:00 [facility] - Road [facility] Outpati ent Clinics 2019-12-08 2019-12-08 [facility] [id number] 13:40:00 13:40:00 t [facility] - Road [facility] 2019-12-07 2019-12-07 [facility] [id number] 12:05:00 12:05:00 t [facility] Road [facility] Outpati ent Clinics 2019-11-16 2019-11-16 [facility] [id number] 11:00:00 11:00:00 [facility] Clinics 2019-10-21 2019-10-21 Emergency Blaire Guevara [facility] [id number] 11:24:16 14:51:00 Sintia Armstrong [id number] [place] [id number] [place] [id number] 2019-09-29 2019-09-29 [facility] [id number] 09:21:00 09:21:00 t [facility] 2019-09-21 2019-09-21 [facility] [id number] 14:00:00 14:00:00 t [facility] Clinics 2019-03-13 2019-03-13 [facility] [id number] Univers 09:00:00 09:00:00 t; Lesa RODRIGUEZ y Mirna Ho Physici M.D. ans 2018-10-02 2018-10-02 Appointmen BENJA [facility] [id number] Univers 15:00:00 15:00:00 t; Asher JONES M.D. [place] Valery JONES M.D. ans 2018-09-25 2018-09-25 Appointmen MARCIAL [facility] [id number] Univers 10:30:00 10:30:00 t; BRANT CEJA NP Health and Luz NP Wellness [facility] Valery Scott [facility] 2018-09-22 2018-09-22 Appointmen BENJA [facility] [id number] Univers 15:30:00 15:30:00 t; Asher JONES M.D. [place] Valery JONES M.D. ans 2018-08-22 2018-08-22 [facility] [id number] Univers 09:30:00 09:30:00 t; Lesa BRYANT y Mirna MUNOZ Physici M.D. ans 2018-07-29 2018-07-29 Appointmen TAMMY [facility] [id number] Univers 14:30:00 14:30:00 t; Lesa BRYANT y Mirna MUNOZ Physici M.D. ans 2018-07-25 2018-07-25 Appointmen KESHIA [facility] Orthopedics [id number] Univers 10:30:00 10:30:00 t; Lesa BRITT [facility] Mirna SCHMITT Physici M.D. ans 2018-07-22 2018-07-22 Appointmen TAMMY [facility] [id number] Univers 11:15:00 11:15:00 t; Lesa BRYANT [facility] narayan TAMMY Orthopedics [facility] Valery BRYANT M.D. ans 2018-07-15 2018-07-15 [facility] [id number] Univers 10:30:00 10:30:00 t; Lesa BRYANT [facility], Orthopedics Nor[place]to as Valery BRYANT M.D. ans 2018-07-09 2018-07-09 [facility] [id number] Univers 13:00:00 13:00:00 t; Lesa BRYANT [place], [place] Valery BRYANT M.D. ans 2018-06-30 2018-06-30 [facility] [id number] Univers 10:15:00 10:15:00 t; Lesa BRYANT [facility], Orthopedics Norberto as Valery BRYANT M.D. ans 2018-06-20 2018-06-20 [facility] [id number] Univers 13:40:00 13:40:00 t; [facility] [place] SHANE MONROE Physi ci ans 2018-06-19 2018-06-19 [facility] [id number] Univers 08:15:00 08:15:00 t; SERJIO HUERTA D.O. [place], [place] Clar[place] Physici ans 2018-06-17 2018-06-17 [facility] [id number] Univers 15:45:00 15:45:00 t; Lesa BRYANT [facility], Orthopedics Norberto as Valery BRYANT M.D. ans 2018-06-03 2018-06-03 [facility] [id number] Univers 13:45:00 13:45:00 t; SERJIO HUERTA D.O. [facility] [place], [place] XeniaOClemente Physici ans Results Test Description Test Time Test Comments Results Result Sour e Comments [U] XRAY ELBOW 2 2018-06-17 Images Universi ty of S RIGHT [id number] 15:57:00 acquired, not [place] reported on Physicians this accession number. [U] XRAY WRIST 2018-06-17 Images University of MIN 3 VWS RIGHT 15:57:00 acquired, not [place] [id number] reported on Physicians this accession number.
--- NOTE | 2020-07-10 23:24 | ER ---
Nurse's Notes [facility] Name: Terry Akins Sr Age: 40 yrs Sex: Male : 1980 Arrival Date: 07/10/2020 Time: 22:56 Bed 2 Private MD: Diagnosis: Tinnitus, left ear Presentation: 07/10 22:59 Acuity: SARITHA 5 sg 22:59 Chief complaint: Patient states: My left ear has been bothering me since May, [place] sg been seen here and they put the wick thing in and gave me medications but I have not had a chance to follow up with the ENT because I work a lot and they closed when I get off work. Coronavirus screen: Client denies travel out of the [place] in the last 14 days. At this time, the client does not indicate any symptoms associated with coronavirus-19. Ebola Screen: Patient negative for fever greater than or equal to 101.5 degrees Fahrenheit, and additional compatible Ebola Virus Disease symptoms Patient denies exposure to infectious person. Patient denies travel to an Ebola-affected area in the 21 days before illness onset. No symptoms or risks identified at this time. Initial Sepsis Screen: Does the patient meet any 2 criteria? No. Patient's initial sepsis screen is negative. Does the patient have a suspected source of infection? No. Patient's initial sepsis screen is negative. Risk Assessment: Do you want to hurt yourself or someone else? Patient reports no desire to harm self or others. Onset of symptoms was July 10, 2020. Care prior to arrival: None. Transition of care: patient was not received from another setting of care. 22:59 Method Of Arrival: Ambulatory sg 23:11 Note side note pt reports having been seen on the 6th for shoulder and arm pain, sg reports no real improvement. Historical: - Allergies: 23:06 No Known Allergies; sg - PMHx: 23:06 carpal tunnel; GERD; Hypertension; sg - PSHx: 23:06 Appendectomy; sg - Immunization history:: Adult Immunizations up to date. - Social history:: Smoking status: Patient denies any tobacco usage or history of. Smoking status: Patient/guardian denies using alcohol, street drugs, The patient lives with family. - Family history:: not pertinent. Screenin:10 Abuse screen: Denies threats or abuse. Denies injuries from another. Nutritional rr5 screening: No deficits noted. Tuberculosis screening: No symptoms or risk factors identified. Fall Risk None identified. Total Moss Fall Scale indicates No Risk (0-24 pts). Assessment: 23:10 General: Appears in no apparent distress. uncomfortable, Behavior is calm, cooperative, rr5 appropriate for age. Pain: Complains of pain in left ear Pain radiates to left eye Pain currently is 10 out of 10 on a pain scale. Quality of pain is described as aching, Pain began gradually, Is intermittent. Neuro: Level of Consciousness is awake, alert, obeys commands, Oriented to person, place, time, situation. Cardiovascular: Capillary refill < 3 seconds Patient's skin is warm and dry. Respiratory: Airway is patent Respiratory effort is even, unlabored, Respiratory pattern is regular, symmetrical. GI: No signs and/or symptoms were reported involving the gastrointestinal system. : No signs and/or symptoms were reported regarding the genitourinary system. EENT: Reports pain in left ear Pain is 10 out of 10 on a pain scale. Derm: Skin is intact, is healthy with good turgor, Skin temperature is warm. Musculoskeletal: Circulation, motion, and sensation intact. Capillary refill < 3 seconds. 23:34 Reassessment: Patient and/or family updated on plan of care and expected duration. Pain ea level reassessed. Patient is alert, oriented x 3, equal unlabored respirations, skin warm/dry/pink. Discharge instruction given to patient, verbalized the understanding of instruction . pt left ED tolerating well. Vital Signs: 22:59 BP 151 / 76; Pulse 77; Resp 16; Temp 98.4; Pulse Ox 98% ; Weight 142.88 kg; Height 6 rr5 ft. 3 in. (190.50 cm); Pain 10/10; 22:59 Body Mass Index 39.37 (142.88 kg, 190.50 cm) rr5 ED Course: 22:56 Patient arrived in ED. bp1 22:59 Triage completed. sg 23:00 Arm band placed on right wrist. rr5 23:00 Patient has correct armband on for positive identification. Bed in low position. Call rr5 light in reach. 23:02 Alexandr Jenkins RN is Primary Nurse. rr5 23:04 Alia Kumar MD is Attending Physician. ma2 23:06 Arm band placed on. sg 23:[address] MD is Referral Physician. [facility] 23:33 No provider procedures requiring assistance completed. Patient did not have IV access ea during this emergency room visit. Administered Medications: 23:28 Drug: [place] 5 mg-325 mg 1 tabs Route: PO; ll2 23:30 Follow up: Response: No adverse reaction ea Outcome: : Discharge ordered by . [facility] :33 Discharged to home ambulatory. ea 23:33 Condition: stable 23:33 Discharge instructions given to patient, Instructed on discharge instructions, follow up and referral plans. medication usage, Demonstrated understanding of instructions, follow-up care, medications, Prescriptions given X 1. 23:34 Patient left the ED. ea Signatures: Michel Giles, RN RN Laverne Rider RN RN Alia Saba MD MD ma2 Alexandr Jenkins RN RN rr5 Lili Ennis RN RN 2 Yara Reddy [facility]
--- NOTE | 2020-07-10 23:24 | EDPHYS ---
Physician Documentation [facility] Name: Terry Akins Sr Age: 40 yrs Sex: Male : 1980 Arrival Date: 07/10/2020 Time: 22:56 Bed 2 Private MD: ED Physician Alia Kumar HPI: 07/10 23:22 This 40 yrs old Black Male presents to ER via Ambulatory with complaints of Hearing ma2 Loss, Ear Pressure. 23:22 The patient presents with tinnitus. Onset: The symptoms/episode began/occurred ma2 gradually, 2 week(s) ago. Associated signs and symptoms: Pertinent negatives: rhinorrhea, shortness of breath, vertigo, vomiting. Severity of symptoms: At their worst the symptoms were mild in the emergency department the symptoms are unchanged. The patient has experienced similar episodes in the past. Historical: - Allergies: 23:06 No Known Allergies; sg - PMHx: 23:06 carpal tunnel; GERD; Hypertension; sg - PSHx: 23:06 Appendectomy; sg - Immunization history:: Adult Immunizations up to date. - Social history:: Smoking status: Patient denies any tobacco usage or history of. Smoking status: Patient/guardian denies using alcohol, street drugs, The patient lives with family. - Family history:: not pertinent. ROS: 23:22 Constitutional: Negative for fever, chills, and weight loss. ma2 23:22 All other systems are negative. Exam: 23:22 Constitutional: This is a well developed, well nourished patient who is awake, alert, ma2 and in no acute distress. Head/Face: Normocephalic, atraumatic. Eyes: Pupils equal round and reactive to light, extra-ocular motions intact. Lids and lashes normal. Conjunctiva and sclera are non-icteric and not injected. Cornea within normal limits. Periorbital areas with no swelling, redness, or edema. ENT: Nares patent. No nasal discharge, no septal abnormalities noted. Tympanic membranes are normal and external auditory canals are clear. Oropharynx with no redness, swelling, or masses, exudates, or evidence of obstruction, uvula midline. Mucous membranes moist. Neck: Trachea midline, no thyromegaly or masses palpated, and no cervical lymphadenopathy. Supple, full range of motion without nuchal rigidity, or vertebral point tenderness. No Meningismus. Chest/axilla: Normal chest wall appearance and motion. Nontender with no deformity. No lesions are appreciated. Cardiovascular: Regular rate and rhythm with a normal S1 and S2. No gallops, murmurs, or rubs. Normal PMI, no JVD. No pulse deficits. Vital Signs: 22:59 BP 151 / 76; Pulse 77; Resp 16; Temp 98.4; Pulse Ox 98% ; Weight 142.88 kg; Height 6 rr5 ft. 3 in. (190.50 cm); Pain 10/10; 22:59 Body Mass Index 39.37 (142.88 kg, 190.50 cm) rr5 MDM: 23:04 Patient medically screened. ma2 23:22 Differential diagnosis: acute otalgia, barotrauma , serotympanum. Differential ma2 diagnosis: serotympanum, inner ear issue. Data reviewed: vital signs, nurses notes. Counseling: I had a detailed discussion with the patient and/or guardian regarding: the historical points, exam findings, and any diagnostic results supporting the discharge/admit diagnosis, the presence of at least one elevated blood pressure reading (>120/80) during this emergency department visit, the need for outpatient follow up. Response to treatment: There is no appreciated change of the patient's symptoms at this time. Administered Medications: 23:28 Drug: [employer] 5 mg-325 mg 1 tabs Route: PO; ll2 23:30 Follow up: Response: No adverse reaction ea Disposition: 07/10/20 23:23 Discharged to Home. Impression: Tinnitus, left ear. - Condition is Stable. - Discharge Instructions: Tinnitus. - Prescriptions for Diclofenac Sodium 75 mg Oral Tablet Sustained Release - take 1 tablet by ORAL route 2 times per day; 30 tablet. - Medication Reconciliation Form, Thank You Letter, Antibiotic Education, Prescription Opioid Use form. - Follow up: Flavia Lane MD; When: Tomorrow; Reason: Continuance of care. Signatures: Michel Giles RN BRYN Laverne Rider RN RN ea Alzahri, Mohammad, MD MD ma2 Lili Ennis RN RN ll2 Corrections: (The following items were deleted from the chart) 23:34 23:23 07/10/2020 23:23 Discharged to Home. Impression: Tinnitus, left ear. Condition is ea Stable. Forms are Medication Reconciliation Form, Thank You Letter, Antibiotic Education, Prescription Opioid Use. Follow up: Flavia Lane; When: Tomorrow; Reason: Continuance of care. ma2
[2020-07-10] MEDS ORDERED: HYDROCODONE/APAP 5/325 MG TAB ONE (23:40)
[2020-07-11 04:24] VITALS: BP 151/76; TEMP 98.4; O2SAT 98
== END 2020-07-10 23:34 | disposition home or self-care (01) ==
LOC: ER 22:53
DX: H93.12 Tinnitus, left ear (principal); K21.9 Gastro-esophageal reflux disease without esophagitis; I10 Essential (primary) hypertension; G56.00 Carpal tunnel syndrome, unspecified upper limb
CPT/HCPCS: 99283

== ENCOUNTER 2020-08-04 04:43 | Emergency (ER) | payer OTHER ==
--- OUTSIDE RECORDS SUMMARY | 2020-08-04 04:45 | XMS REPORT | Clinical Summary ---
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
--- OUTSIDE RECORDS SUMMARY | 2020-08-04 04:46 | XMS REPORT ---
:1980 Author Organization [facility] Address [address] [place], [address] [place] [address] Care Team Providers Name Role Phone Vazquez Unavailable [phone] PROBLEMS Type Condition ICD9-CM [id number] Onset Condition SNOMED Code Notes Code Code Dates Status Problem Mild intermittent J45.20 Active 732208831 asthma with allergic rhinitis, unspecified whether complicated Problem Hypertension, I10 Active 67358338 unspecified type Problem Non-seasonal J30.89 Active 97930207 allergic rhinitis, unspecified trigger Problem Migraine without G43.009 Active 323514062 aura and without status migrainosus, not intractable Problem Attention deficit F90.2 Active 66551118 hyperactivity disorder (ADHD), combined type Problem GERD without K21.9 Active 670402831 esophagitis Problem Left maxillary J32.0 Active 43496198 sinusitis Problem Depression with F41.8 Active 156468921 anxiety Problem Decreased hearing H91.92 Active 787522622 of left ear Problem Pain in right M25.561 Active 28265153 knee Problem Tobacco use F17.200 Active 682227261 disorder Problem Other chronic G89.29 Active 90971012 pain Problem Mixed E78.2 Active 391715263 hyperlipidemia Problem Primary M17.11 Active 858315102858322 osteoarthritis of right knee ALLERGIES No Known Allergies ENCOUNTERS from 1980 to 2020-07-12 Encounter Location Date Provider Diagnosis [facility] [address] [place], John Vazquez Wilber lgia, left ear Family [facility] [address], [address] ; [place] [address] hearing of lef t ear H91.92 ; Sensat ion of fullness in left ear H93.8X2 ; L eft elbow pain M25. 522 and Other chron ic pain G89.29 IMMUNIZATIONS Vaccine Route Administration Date Status Bupivicaine [place] Unknown November 16, 2019 Administered Kenalog (Triamcinolone) [...] reading the More th an half the newspaper or watching television Moving or speaking [...] No Information VITAL SIGNS Height 72 in Jul, Weight 318.3 lbs Jul, Temperature 97.5 degrees Fahrenheit Jul, BMI 43.16 kg/m2 Jul, Oximetry 97 % Jul, Respiratory Rate 18 /min Jul, Blood pressure systolic 129 mm Hg Jul, Blood pressure diastolic 64 mm Hg Jul, MEDICATIONS Medication SIG (Take, Route, Notes Start Date End Date Status Frequency, Duration) Losartan Potassium-HCTZ 1 tablet Orally Once a Active 50-12.5 MG day for 30 day(s) Dicyclomine HCl 20 MG 1 tablet Orally PRN Active Adderall XR 20 MG 1 capsule in the N ot-Taking morning Orally Once a day Omeprazole 40 MG 1 capsule 30 minutes Active before morning meal Orally Once a day for 30 days Zofran 8 MG 1 tablet as needed Activ e Orally Once a day PRN Nausea Hydrocodone-Acetaminophen 1 tablet as needed Not-Taking 5-325 MG Orally PRN PROCEDURES No Information RESULTS No Results REASON FOR VISIT Fluid behind ear/need ref to ENT. In office. MEDICAL (GENERAL) HISTORY Type Description Date Medical [...] nerve transplant-dont have ful l strength in 3951-8159 either arm Surgical History Tendonitis 2016 Surgical History Right and left elbow Goals Section No Information Health Concerns No Information MEDICAL EQUIPMENT No Information MENTAL STATUS No Information FUNCTIONAL STATUS No Information ASSESSMENTS Encounter Date Diagnosis Assessment Notes Treatment Notes Treatm ent Clinical Notes Jul, Otalgia, left ear Discussed (ICD-10 - H92.02) differential diagnosis with patient. Education given. ER course reviewed. Referral to ENT for further evaluation management. Discussed supportive measures for symptomatic relief. Jul, Decreased hearing of left ear (ICD-10 - H91.92) Jul, Sensation of fullness in left ear (ICD-10 - H93.8X2) Jul, Left elbow pain . Discussed (ICD-10 - differential M25.522) diagnosis with patient. Education given. Avoid any exacerbating activity. Activity modification discussed. Referral to Ortho for further evaluation management Jul, Other chronic pain (ICD-10 - G89.29) Jul, Other -- Medication reviewed and updated. -- Dietary and Lifestyle modifications addressed regarding diet, exercise and weight managemen t. -- Treatment options, risks and benefits, side effects reviewed in detail. -- Advised on signs/symptoms to monitor and when to call clinic and/or visit the nearest ER. Patient verbalized understanding and agreeable with plan. PLAN OF TREATMENT Treatment Notes Assessment Notes Clinical Notes Otalgia, left ear Discussed differential diagnosis with angeli moscoso. Education given. ER course reviewed. R eferral to ENT for further evaluation management. Discussed supportive measures for symptomatic reli ef. Left elbow pain . Discussed differential diagnosis with patient. Education given. Avoid any exacerbating activity. Activity modification discussed. Referr al to Ortho for further evaluation management Next Appt Details as scheduled Reason: Provider Name:John Vazquez, 2020-08-30 0 9:30:00 AM, [address], [place], [address], Insurance Providers Payer Name Payer Payer Insured Patient Coverage Coverage End Address Phone Name Relationship to Start Date [employer] [phone] Arvind Akins self 2018 [employer] [id number] [facility] [phone]
--- OUTSIDE RECORDS SUMMARY | 2020-08-04 04:46 | XMS REPORT ---
:1980 Author Organization [facility] Address [address] [place], [address] [place] [address] Care Team Providers Name Role Phone Vazquez Unavailable [phone] PROBLEMS Type Condition ICD9-CM [id number] Onset Condition SNOMED Code Notes Code Code Dates Status Problem Mild intermittent J45.20 Active 206229473 asthma with allergic rhinitis, unspecified whether complicated Problem Hypertension, I10 Active 61177191 unspecified type Problem Non-seasonal J30.89 Active 24979903 allergic rhinitis, unspecified trigger Problem Migraine without G43.009 Active 546211749 aura and without status migrainosus, not intractable Problem Attention deficit F90.2 Active 10972058 hyperactivity disorder (ADHD), combined type Problem GERD without K21.9 Active 855109783 esophagitis Problem Left maxillary J32.0 Active 30682609 sinusitis Problem Depression with F41.8 Active 360719777 anxiety Problem Decreased hearing H91.92 Active 620217463 of left ear Problem Pain in right M25.561 Active 71205573 knee Problem Tobacco use F17.200 Active 185502225 disorder Problem Other chronic G89.29 Active 00935315 pain Problem Mixed E78.2 Active 086080515 hyperlipidemia Problem Primary M17.11 Active 131680382686572 osteoarthritis of right knee ALLERGIES No Known Allergies ENCOUNTERS from 1980 to 2020-07-20 Encounter Location Date Provider Diagnosis [facility] [address], [place] [address] IMMUNIZATIONS Vaccine Route Administration Date Status Bupivicaine [place] Unknown November 16, 2019 Administered Kenalog (Triamcinolone) IM Intramuscular May 23, 2020 Adminis tered Kenalog (Triamcinolone) Unknown November 16, 2019 Administ miriam SOCIAL HISTORY Tobacco Use: Social History Observation [...] REASON FOR REFERRAL No Information VITAL SIGNS No information MEDICATIONS Medication SIG (Take, Route, Notes Start [...] Information RESULTS No Results REASON FOR VISIT Needs referral change MEDICAL (GENERAL) HISTORY Type Description Date Medical [...] Surgical History RIGHT AND LEFT Carpal tunnel 2019 Surgical 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 ful l strength in [id number] either arm Surgical History Tendonitis 2016 Surgical History Right and left elbow Goals Section No Information Health Concerns No Information MEDICAL EQUIPMENT No Information MENTAL STATUS No Information FUNCTIONAL STATUS No Information ASSESSMENTS No Information PLAN OF TREATMENT Next Appt Details Provider Name:[facility], 2020-08-30 0 9:30:00 AM, [address], [place], [address], Insurance Providers Payer Name Payer Payer Insured Patient Coverage Coverage End Address Phone Name Relationship to Start Date [employer] [phone] Arvind Akins self 2018 [employer] [phone] [facility] [address]
--- OUTSIDE RECORDS SUMMARY | 2020-08-04 04:46 | XMS REPORT | Continuity of Care Document ---
:1980 Author Organization [facility] t Address [address] [place] [address] Care Team Providers Name Role Phone Asked, Pcp Primary Care Physician Unavailable Doctor Unassigned, Name Attending Clinician Unavailable Sintia Hooks Attending Clinician MONAE Attending Clinician Unavailable BENJA Attending Clinician Unavailable MARCIAL Attending Clinician Unavailable TAMMY Attending Clinician Unavailable KESHIA Attending Clinician Unavailable GONZALEZ Attending Clinician Unavailable BRADLEY Attending Clinician Unavailable Problems Condition Condition Condition Status Onset Resolution Last Treating Co mments Source Name Details Category Date Date Treatment Clinician Date Syncope Syncope Disease Active 2017-08 [place] 0-14 Methodi 00:00: st 00 Cubital Cubital [...] sleep e sleep ity of apnea, apnea, [place] adult adult Physici ans Migraine Migraine Problem Active Unive rs headache headache [facility] [place] [facility] ans Chronic Chronic Problem Active Univers GERD GERD [facility] of [place] [facility] ans History of History of Problem Resolve Univers arthritis arthritis d [facility] of [place] Phys[facility] ans History of History of Problem [...] History Uni versity of Family Member cerebrovascular [place] [facility] accident (CVA) Social History Social Habit Start Date Stop Date Quantity Comments Source Sex Assigned At [facility] ethodist Tobacco use and 2018-05-25 2018-05-25 Never used [facility] ethodist exposure 00:00:00 00:00:00 Alcohol intake 2018-05-25 2018-05-25 Current [facility] thodist 00:00:00 00:00:00 non-drinker of alcohol (finding) History of 2018-04-25 [facility] Smoking Status Start Date Stop Date Source Former smoker 2018-05-25 00:00:00 2018-05-25 00:00:00 [place] Jainism Medications Ordered Filled Start Stop Current Ordering Indication Dosage Frequency Signature Comments Components Source Medication Medication Date Date Medication? Clinician (SIG) Name Name Marysol Promethazin 2019-0 2020- No Norah [address] [facility] e HCl e HCl 4-28 05-03 [place] as needed [facility] 00:[facility]: [facility]:00 for n/v [facility] 00 :[facility] SUMAtriptan SUMAtriptan Yes POURAN inject PRN Univers Succinate 6 Succinate 6 2-21 BENJA onset of ity of MG/0.5ML MG/0.5ML 00:00: M.D. the [place] Subcutaneou Subcutaneou 00 cluster Physici s Solution [...] [facility] Losartan Losartan Yes Norah [address] Potassium-H Potassium-H [place] [facility] - CTZ CTZ [facility] Hydrocodone Hydrocodone Yes Norah [address] [facility] -Acetaminop -Acetaminop [place] as needed [facility] Adderall XR Adderall XR Yes Norah [address] [facility] [place] in the [facility] - morning [facility] Omeprazole Omeprazole Yes Norah [address] [facility] [place] 30 minutes [facility] - before Memoria morning l meal [facility] Dicyclomine Dicyclomine Yes Norah [address] [facility] [address] HCl HCl Maulik [facility] - Mike [facility] Outpat[facility] ent Clinics Immunizations Ordered Immunization Filled Immunization Date Status Commen ts Source Name Name Taryn Gaytanivalent 2018-06-03 Completed Univ ersity of 0.5 ML Intramuscular 14:35:00 [place] Sus[place] Vital Signs Vital Name Observation Time Observation Value Comments Source BP Systolic 2018-10-02 155 mm[Hg] Location: [facility] ::00 Position: [place] Physician s Sitting BP Diastolic 2018-10-02 88 mm[Hg] Location: [facility] :: Position: [place] Physician s Sitting Height 2018-10-02 75 [in_us] [facility] ::00 [place] Phys[place] s Weight 2018-10-02 302 [lb_av] [facility] :: [place] Physician s Body Mass Index 2018-10-02 37.75 kg/m2 University o f Calculated 15:26:00 [place] Phys[facility] s Temperature 2018-10-02 98 [degF] Method: Oral [facility] :: [place] Phys[facility] s Heart Rate 2018-10-02 63 /min Location: [facility] ::00 Apical; [place] Phys[facility] s BP Systolic 2018-09-25 154 mm[Hg] Location: [facility] ::00 Position: [place] Physician s Sitting BP Diastolic 2018-09-25 98 mm[Hg] Location: [facility] ::00 Position: [place] Physician s Sitting Heart Rate 2018-09-25 70 /min Quality: Normal University o f 10:26:00 [place] [facility] s BP Systolic 2018-09-25 169 mm[Hg] Location: [facility] ::00 Position: [place] Physician s Sitting BP Diastolic 2018-09-25 65 mm[Hg] Location: [facility] ::00 Position: [place] Physician s Sitting Heart Rate 2018-09-25 67 /min Quality: Normal University o f 10:25:00 [place] [facility] s Height 2018-09-25 75 [in_us] University of :25:00 [place] [facility] s Weight 2018-09-25 295 [lb_av] [facility] :25:00 [place] [facility] s Body Mass Index 2018-09-25 36.87 kg/m2 University o f Calculated 10:25:00 [place] [facility] s Temperature 2018-09-25 98.3 [degF] Method: Oral University of 10:25:00 [place] Phys[facility] s O2 SAT 2018-09-25 99 % University 10:25:00 [place] Phys[facility] s BP Systolic 2018-06-03 136 mm[Hg] Location: [facility] :09:00 Position: [place] Physician s Sitting BP Diastolic 2018-06-03 75 mm[Hg] Location: [facility]; [facility] :09:00 Position: [place] Physician s Sitting Height 2018-06-03 75 [in_us] University :09:00 [place] [facility] s Weight 2018-06-03 317 [lb_av] University :09: [place] [facility] s Body Mass Index 2018-06-03 39.62 kg/m2 University o f Calculated 14:09:00 [place] [facility] s Temperature 2018-06-03 97.9 [degF] Method: Oral [facility] ::00 [place] [facility] s Heart Rate 2018-06-03 74 /min [facility] ::00 [place] [facility] s Procedures Procedure Date / Time Performing Clinician Source Performed [U] XRAY KNEE 4 OR MORE 2018-07-24 00:00:00 [facility] VWS RIGHT [id number] Physicians Emg/Ncv 2018-06-20 00:00:00 [place] [facility] [place] [facility] Sleep Lab - Sleep 2018-06-03 00:00:00 [facility] Study Split Night Physicians History of Cubital tunnel [facility] repair Physicians History of Appendectomy [facility] Physicians History of Wrist surgery [facility] Physicians History of [facility] [place] Hemorrhoidectomy Physicians Plan of Care Planned Activity Planned Date Details Comments Source Future Scheduled 2020-03-12 INFLUENZA VACCINE [place] [facility] Test 00:00:00 [code = INFLUENZA VACCINE] Diagnostic Test 2018-06-20 Emg/Ncv [code = [facility] [place] Pending 00:00:00 Emg/Ncv] Physicians Diagnostic Test 2018-06-20 Emg/Ncv [code = [facility] [place] Pending 00:00:00 Emg/Ncv] Physicians Future Scheduled 1996 COVID-19 VACCINE [place] [facility] Test 00:00:00 (#1) [code = COVID-19 VACCINE (#1)] Encounters Start End Encounter Admission Attending Care Care Encounter Source Date/Time Date/Time Type Type Clinicians Facility Department ID 2020-07-20 2020-07-20 Outpatient [facility] [id number] Clinics 2020-07-20 2020-07-20 Orders Doctor HOLCOMB [id number] 00:00:00 00:00:00 Only Unassigned, ABDULKADIR [id number] [place] [facility] [id number] 2020-07-12 2020-07-12 Outpatient [facility] [id number] [facility] Out[facility] Clinics 2020-05-23 2020-05-23 [id number] Out[facility] Clinics 2020-02-24 2020-02-24 [facility] [id number] [address] 14:42:00 14:42:00 t [employer] [facility] Outpati ent Clinics 2020-02-22 2020-02-22 [facility] [id number] 13:51:00 13:51:00 t [facility] Medicine Outpati ent Clinics 2019-12-10 2019-12-10 [facility] [id number] 15:39:00 15:39:00 t [facility] Medicine Outpati ent Clinics 2019-12-08 2019-12-08 [facility] [id number] 13:40:00 13:40:00 t [facility] Medicine Outpati ent Clinics 2019-12-07 2019-12-07 [facility] [id number] 12:05:00 12:05:00 t [facility] Medicine Outpati ent Clinics 2019-11-16 2019-11-16 [facility] [id number] 11:00:00 11:00:00 [facility] Clinics 2019-10-21 2019-10-21 Emergency Blaire Guevara [facility] [id number] 11:24:16 14:51:00 Sintia Armstrong [id number] [place] [id number] [place] [id number] 2019-09-29 2019-09-29 [facility] [id number] 09:21:00 09:21:00 [facility] ent Clinics 2019-09-21 2019-09-21 [facility] [id number] 14:00:00 14:00:00 [facility] ent Clinics 2019-03-13 2019-03-13 Appointmen EUNICE LICONA [id number] Univers 09:00:00 09:00:00 t; Lesa RODRIGUEZ [place] NANCY, Physici M.D. ans 2018-10-02 2018-10-02 Appointmen EUNICE YOUSIF [id number] Univers 15:00:00 15:00:00 t; Asher JONES M.D. [place] POURAN, Physici M.D. ans 2018-09-25 2018-09-25 Appointmen EUNICE CEJA [facility] [id number] Univers 10:30:00 10:30:00 t; BRANT CEJA NP Health and itIvan NP Wellness [facility] [place] [facility] Valery Santosberg ans 2018-09-22 2018-09-22 Appointmen EUNICE YOUSIF [id number] Univers 15:30:00 15:30:00 t; Asher JONES M.D. [place] Valery JONES M.D. ans 2018-08-22 2018-08-22 Appointmen EUNICE MUNOZ [id number] Univers 09:30:00 09:30:00 t; Lesa BRYANT [place] GEOFF, Physici M.D. ans 2018-07-29 2018-07-29 [facility] [id number] Univers 14:30:00 14:30:00 t; Lesa BRYANT of [place], [place] Valery BRYANT M.D. ans 2018-07-25 2018-07-25 Appointmen [facility] Orthopedics [id number] Univers 10:30:00 10:30:00 t; Lesa BRITT at [place], [place] Valery BRITT M.D. ans 2018-07-22 2018-07-22 [facility] [id number] Univers 11:15:00 11:15:00 t; Lesa BRYANT [facility], Orthopedics Norberto as Valery BRYANT M.D. ans 2018-07-15 2018-07-15 [facility] [id number] Univers 10:30:00 10:30:00 t; Lesa BRYANT [facility], Orthopedics Norberto as Valery BRYANT M.D. ans 2018-07-09 2018-07-09 [facility] [id number] Univers 13:00:00 13:00:00 t; Lesa BRYANT [place], [place] Valery BRYANT M.D. ans 2018-06-30 2018-06-30 [facility] [id number] Univers 10:15:00 10:15:00 t; Lesa BRYANT [facility], Orthopedics Norberto as Valery BRYANT M.D. ans 2018-06-20 2018-06-20 [id number] Univers 13:40:00 13:40:00 t; [facility] SHANE MONROE Physi ci ans 2018-06-19 2018-06-19 [facility] [id number] Univers 08:15:00 08:15:00 t; SERJIO HUERTA D.O. ity of [place], [place] Clarissa Physicsp ans 2018-06-17 2018-06-17 Appointmen EUNICE MUNOZ [facility] [id number] Univers 15:45:00 15:45:00 t; Lesa BRYANT [facility] itkatarzyna [facility], Orthopedics Norberto as Valery BRYANT M.D. ans 2018-06-03 2018-06-03 Appointmen JOEEUNICE AWAN [facility] [id number] Univers 13:45:00 13:45:00 t; SERJIO HUERTA D.O. [place], [place] Clarissa Physici ans Results Test Description Test Time Test Comments Results Result Sour e Comments [U] XRAY ELBOW 2 2018-06-17 Images Universi ty of VWS RIGHT [id number] 15:57:00 acquired, not [place] reported on Physicians this accession number. [U] XRAY WRIST 2018-06-17 Images University of [facility] 3 VWS RIGHT 15:57:00 acquired, not [place] [id number] reported on Physicians this accession number.
--- OUTSIDE RECORDS SUMMARY | 2020-08-04 04:46 | XMS REPORT | Summary of Care ---
:1980 Author Organization [facility] - Health Address [address] [place] [address] Care Team Providers Name Role Phone Thomas Vazquez Primary Care Provider Encounter Details Date Type Department Care Team Description 07/20/2020 Orders Only [facility] Doctor Unassigned, No [address] [facility] [place] [address] [address] [place] [address] Allergies No Known Allergiesdocumented as of this encounter (statuses as of 07/27/2020) Medications Medication Sig Dispensed Refills Start Date End Date Status ondansetron (ZOFRAN Take 1 tablet by 10 tablet 0 10/21/2019 Active ODT) 4 mg mouth every 8 disintegrating (eight) hours as tabletIndications: needed for Viral bronchitis Nausea and Vomiting (N/V). benzonatate 200 mg Take 1 capsule 20 capsule 0 10/21/2019 Active capsuleIndications: by mouth 3 Viral bronchitis (three) times daily as needed for Cough for up to 20 doses. ibuprofen 600 mg Take 1 tablet by 30 tablet 0 10/21/2019 Active tabletIndications: mouth every 6 Viral bronchitis (six) hours as needed for Pain (scale 4-6). documented as of this encounter (statuses as of 07/27/2020) Active Problems Not on filedocumented as of this encounter (statuses as of 07/27/2020) Social History Tobacco Use Types Packs/Day Years Used Date Never Assessed Sex Assigned at Date Recorded Not on file documented as of this encounter Last Filed Vital Signs Not on filedocumented in this encounter Plan of Treatment Health Maintenance Due Date Last Done Comments Depression Screening 1992 DTaP,Tdap,and Td Vaccines ( - 1999 Tdap) INFLUENZA VACCINE (#1) 2020 PNEUMOCOCCAL 0-64 YEARS COMBINED Aged Out No longer eligible based on SERIES patient's age to complete this topic documented as of this encounter Procedures Procedure Name Priority Date/Time Associated Diagnosis Comme nts REFERRAL- Routine 07/20/2020 12:01 AM [employer] REQUEST/RESPONSE documented in this encounter Results Not on filedocumented in this encounter Insurance Payer Benefit Plan / Subscriber ID Effective Phone Address [facility] [id number] 2019-Prese [address] Medic aid HEALTH CHOICE - [place] [id number] MANAGED MEDICAID [place], [place] [phone] documented as of this encounter
--- NOTE | 2020-08-04 05:06 | ER ---
Nurse's Notes [facility] Name: Terry Akins Sr Age: 40 yrs Sex: Male : 1980 Arrival Date: 08/04/2020 Time: 04:46 Bed 18 Private MD: Diagnosis: Tinnitus, left ear;Migraine Presentation: 08/04 04:55 Chief complaint: Patient states: i was here before for ear infection but now I can't mg2 hear from my left ear , feels so much pressure causing my migraine headache with n/v. took imitrex, ibuprofen 5 hours ago but not working. Coronavirus screen: Client denies travel out of the [place] in the last 14 days. At this time, the client does not indicate any symptoms associated with coronavirus-19. Ebola Screen: No symptoms or risks identified at this time. Initial Sepsis Screen: Does the patient meet any 2 criteria? No. Patient's initial sepsis screen is negative. Does the patient have a suspected source of infection? No. Patient's initial sepsis screen is negative. Risk Assessment: Do you want to hurt yourself or someone else? Patient reports no desire to harm self or others. Onset of symptoms was August 03, 2020. 04:55 Method Of Arrival: Ambulatory mg2 04:55 Acuity: SARITHA 4 mg2 Triage Assessment: 07:30 Pain: Also complains of. ph Historical: - Allergies: 04:59 No Known Allergies; mg2 - Home Meds: 04:59 None [Active]; mg2 - PMHx: 04:59 carpal tunnel; GERD; Hypertension; mg2 - PSHx: 04:59 Carpal Tunnel Repair; Appendectomy; mg2 - Immunization history:: Flu vaccine status is unknown. - Social history:: Smoking status: Patient reports the use of cigarette tobacco products, denies chronic smoking, but will smoke occasionally, Patient uses alcohol, occasionally. Patient/guardian denies using street drugs, IV drugs. - Family history:: not pertinent. Screenin:00 Abuse screen: Denies threats or abuse. Nutritional screening: No deficits noted. ll2 Tuberculosis screening: No symptoms or risk factors identified. Fall Risk None identified. Assessment: 05:00 General: Appears in no apparent distress. uncomfortable, Behavior is calm, cooperative, ll2 appropriate for age. Pain: Complains of pain in left ear. Neuro: Level of Consciousness is awake, alert, obeys commands, Oriented to person, place, time, situation. Cardiovascular: Patient's skin is warm and dry. Respiratory: Airway is patent Respiratory effort is even, unlabored, Respiratory pattern is regular, symmetrical. GI: No signs and/or symptoms were reported involving the gastrointestinal system. : No signs and/or symptoms were reported regarding the genitourinary system. EENT: Reports decreased hearing in left ear. Derm: Skin is intact, is healthy with good turgor, Skin is dry, Skin is normal, Skin temperature is warm. Musculoskeletal: Circulation, motion, and sensation intact. Range of motion: intact in all extremities. 05:35 Reassessment: attempted to D/C pt, pt returned to ER complaining of lingering H/A. ERD ll2 notified. 06:13 Reassessment: Patient and/or family updated on plan of care and expected duration. Pain ll2 level reassessed. Patient is alert, oriented x 3, equal unlabored respirations, skin warm/dry/pink. Vital Signs: 04:55 BP 137 / 79; Pulse 79; Resp 18; Pulse Ox 100% ; Weight 142.88 kg; Height 6 ft. 3 in. mg2 (190.50 cm); Pain 10/10; 05:00 BP 140 / 79; Pulse 60; Resp 18; Temp 98.6; Pulse Ox 100% on R/A; ll2 06:00 BP 121 / 78; Pulse 59; Resp 18; Pulse Ox 100% on R/A; ll2 04:55 Body Mass Index 39.37 (142.88 kg, 190.50 cm) mg2 ED Course: 04:46 Patient arrived in ED. bp1 04:48 Alia Kumar MD is Attending Physician. ma2 04:58 Triage completed. mg2 04:58 Arm band placed on. mg2 05:00 Patient has correct armband on for positive identification. Bed in low position. Call ll2 light in reach. Side rails up X 1. Pulse ox on. NIBP on. 05:00 No provider procedures requiring assistance completed. IV discontinued. ll2 05:[address] MD is Referral Physician. ma2 05:31 Lili Ennis RN is Primary Nurse. ll2 06:03 Inserted saline lock: 20 gauge in right hand, using aseptic technique. rv Administered Medications: 05:07 Drug: Goodrich (7.5 mg-325 mg) 1 tabs Route: PO; ll2 05:42 Follow up: Response: No adverse reaction; Medication administered at discharge. ll2 05:07 Drug: Reglan 10 mg Route: IM; Site: left deltoid; ll2 07:29 Follow up: Response: No adverse reaction ph 05:41 Not Given (Other Intervention Used): Reglan 10 mg PO once ll2 06:12 Drug: Benadryl 50 mg Route: IVP; Site: right hand; ll2 07:29 Follow up: Response: No adverse reaction ph 06:12 Drug: TORadol 30 mg Route: IVP; Site: right hand; ll2 07:29 Follow up: Response: No adverse reaction ph 06:13 Drug: NS 0.9% 1000 ml Route: IV; Rate: 1 bolus; Site: right hand; ll2 07:29 Follow up: Response: No adverse reaction; IV Status: Completed infusion; IV Intake: ph 1000ml Intake: 07:29 IV: 1000ml; Total: 1000ml. ph Outcome: 05:06 Discharge ordered by . ma2 05:25 Discharged to home ambulatory. ll2 05:25 Condition: stable 05:25 Discharge instructions given to patient, Instructed on discharge instructions, follow up and referral plans. medication usage, Demonstrated understanding of instructions, follow-up care, medications, Prescriptions given X 1. 07:30 Patient left the ED. ph Signatures: Marisol Melo RN RN Alia Kumar MD MD ma2 Negrito Senior RN RN [facility] Sacha Lieberman RN RN rv [place], Lacie, RN RN 2 Yara Reddy Corrections: (The following items were deleted from the chart) 05:33 05:00 IV discontinued, intact, bleeding controlled, No redness/swelling at site. ll2 Pressure dressing applied, ll2 05:39 05:07 Goodrich (7.5 mg-325 mg) 2 tabs PO ll2 ll2 05:42 05:41 Reglan 10 mg IM in left deltoid ll2 ll2
--- NOTE | 2020-08-04 05:06 | EDPHYS ---
Physician Documentation [facility] Name: Terry Akins Sr Age: 40 yrs Sex: Male : 1980 Arrival Date: 08/04/2020 Time: 04:46 Bed 18 Private MD: ED Physician Alia Kumar HPI: 08/04 05:03 This 40 yrs old Black Male presents to ER via Ambulatory with complaints of Headache, ma2 Ear Pain. 05:03 The patient complains of pain to the left ear. Onset: The symptoms/episode ma2 began/occurred gradually, 1 week(s) ago. Associated signs and symptoms: Pertinent negatives: dizziness, malaise, paresthesias, sinus congestion, vision loss, weakness. Severity of symptoms: At its worst the pain was mild, in the emergency department the pain is unchanged. The patient has not experienced similar symptoms in the past. 05:03 The patient has not experienced similar symptoms in the past, The patient has ma2 experienced similar episodes in the past, several times. Historical: - Allergies: 04:59 No Known Allergies; mg2 - Home Meds: 04:59 None [Active]; mg2 - PMHx: 04:59 carpal tunnel; GERD; Hypertension; mg2 - PSHx: 04:59 Carpal Tunnel Repair; Appendectomy; mg2 - Immunization history:: Flu vaccine status is unknown. - Social history:: Smoking status: Patient reports the use of cigarette tobacco products, denies chronic smoking, but will smoke occasionally, Patient uses alcohol, occasionally. Patient/guardian denies using street drugs, IV drugs. - Family history:: not pertinent. ROS: 05:03 Constitutional: Negative for fever, chills, and weight loss. ma2 05:03 All other systems are negative. Exam: 05:03 Constitutional: This is a well developed, well nourished patient who is awake, alert, ma2 and in no acute distress. Head/Face: Normocephalic, atraumatic. Eyes: Pupils equal round and reactive to light, extra-ocular motions intact. Lids and lashes normal. Conjunctiva and sclera are non-icteric and not injected. Cornea within normal limits. Periorbital areas with no swelling, redness, or edema. ENT: Nares patent. No nasal discharge, no septal abnormalities noted. Tympanic membranes are normal and external auditory canals are clear. Oropharynx with no redness, swelling, or masses, exudates, or evidence of obstruction, uvula midline. Mucous membranes moist. Neck: Trachea midline, no thyromegaly or masses palpated, and no cervical lymphadenopathy. Supple, full range of motion without nuchal rigidity, or vertebral point tenderness. No Meningismus. Chest/axilla: Normal chest wall appearance and motion. Nontender with no deformity. No lesions are appreciated. Cardiovascular: Regular rate and rhythm with a normal S1 and S2. No gallops, murmurs, or rubs. Normal PMI, no JVD. No pulse deficits. Respiratory: Lungs have equal breath sounds bilaterally, clear to auscultation and percussion. No rales, rhonchi or wheezes noted. No increased work of breathing, no retractions or nasal flaring. Vital Signs: 04:55 BP 137 / 79; Pulse 79; Resp 18; Pulse Ox 100% ; Weight 142.88 kg; Height 6 ft. 3 in. mg2 (190.50 cm); Pain 10/10; 05:00 BP 140 / 79; Pulse 60; Resp 18; Temp 98.6; Pulse Ox 100% on R/A; ll2 06:00 BP 121 / 78; Pulse 59; Resp 18; Pulse Ox 100% on R/A; ll2 04:55 Body Mass Index 39.37 (142.88 kg, 190.50 cm) mg2 MDM: 04:48 Patient medically screened. [facility] 05:03 Differential diagnosis: migraine, otitis, trigeminal neuralgia, uremia. Data reviewed: [facility] vital signs, nurses notes, EMS record, custodial records. Counseling: I had a detailed discussion with the patient and/or guardian regarding: the historical points, exam findings, and any diagnostic results supporting the discharge/admit diagnosis, the presence of at least one elevated blood pressure reading (>120/80) during this emergency department visit, the need for outpatient follow up. Response to treatment: the patient's symptoms have markedly improved after treatment. 05:03 Data reviewed: Data reviewed:. [facility] Administered Medications: 05:07 Drug: [place] (7.5 mg-325 mg) 1 tabs Route: PO; 2 05:42 Follow up: Response: No adverse reaction; Medication administered at discharge. 2 05:07 Drug: Reglan 10 mg Route: IM; Site: left deltoid; ll2 07:29 Follow up: Response: No adverse reaction ph 05:41 Not Given (Other Intervention Used): Reglan 10 mg PO once ll2 06:12 Drug: Benadryl 50 mg Route: IVP; Site: right hand; ll2 07:29 Follow up: Response: No adverse reaction ph 06:12 Drug: TORadol 30 mg Route: IVP; Site: right hand; ll2 07:29 Follow up: Response: No adverse reaction ph 06:13 Drug: NS 0.9% 1000 ml Route: IV; Rate: 1 bolus; Site: right hand; ll2 07:29 Follow up: Response: No adverse reaction; IV Status: Completed infusion; IV Intake: ph 1000ml Disposition: 08/04/20 05:06 Discharged to Home. Impression: Tinnitus, left ear, Migraine. - Condition is Stable. - Discharge Instructions: Tinnitus, Migraine Headache. - Prescriptions for Reglan 10 mg Oral Tablet - take 1 tablet by ORAL route every 6 hours take 30 minutes before meals and at bedtime; 20 tablet. - Medication Reconciliation Form, Thank You Letter, Antibiotic Education, Prescription Opioid Use form. - Follow up: Private Physician; When: Tomorrow; Reason: If symptoms return. Follow up: Flavia Lane MD; When: Tomorrow; Reason: If symptoms return. Signatures: Marisol Melo RN RN Alia Kumar MD MD nj2 Negrito Senior RN RN [facility] Lili Ennis RN RN 2 Corrections: (The following items were deleted from the chart) 05:07 05:06 08/04/2020 05:06 Discharged to Home. Impression: Tinnitus, left ear; Migraine. ma2 Condition is Stable. Prescriptions for Reglan 10 mg Oral Tablet - take 1 tablet by ORAL route every 6 hours take 30 minutes before meals and at bedtime; 20 tablet. and Forms are Medication Reconciliation Form, Thank You Letter, Antibiotic Education, Prescription Opioid Use. Follow up: Private Physician; When: Tomorrow; Reason: If symptoms return. ma2 07:30 05:07 08/04/2020 05:06 Discharged to Home. Impression: Tinnitus, left ear; Migraine. ph Condition is Stable. Discharge Instructions: Tinnitus, Migraine Headache. Prescriptions for Reglan 10 mg Oral Tablet - take 1 tablet by ORAL route every 6 hours take 30 minutes before meals and at bedtime; 20 tablet. and Forms are Medication Reconciliation Form, Thank You Letter, Antibiotic Education, Prescription Opioid Use. Follow up: Private Physician; When: Tomorrow; Reason: If symptoms return. Follow up: Flavia Lane; When: Tomorrow; Reason: If symptoms return. ma2
[2020-08-04] MEDS ORDERED: METOCLOPRAMIDE 10 MG/2mL INJ ONE (05:26)
[2020-08-04] MEDS ORDERED: HYDROCODONE/APAP 7.5/325 MG TAB ONE (05:27)
[2020-08-04] MEDS ORDERED: ONDANSETRON 4 MG (ODT) TAB ONE (05:31)
[2020-08-04 07:34] VITALS: O2SAT 100
[2020-08-04 07:35] VITALS: TEMP 98.6
[2020-08-04 07:37] VITALS: BP 121/78
== END 2020-08-04 07:30 | disposition home or self-care (01) ==
LOC: ER 04:43
DX: H93.12 Tinnitus, left ear (principal); G43.909 Migraine, unspecified, not intractable, without status migrainosus; I10 Essential (primary) hypertension; Z72.0 Tobacco use
CPT/HCPCS: 96361; 96375; 96372; 96374; 99284; J2765; J1200; J7030

== ENCOUNTER 2020-09-02 14:37 | Emergency (ER) | payer OTHER ==
--- OUTSIDE RECORDS SUMMARY | 2020-09-02 14:40 | XMS REPORT | Continuity of Care Document ---
:1980 Author Organization [facility] t Address [address] [place] [address] Care Team Providers Name Role Phone Asked, [...] Clinician Date Syncope Syncope Disease Active 2017-08 [place] 0-14 Methodi 00:00: st 00 Cubital Cubital [...] Univers essential essential ity of HTN HTN [place] [facility] Obstructiv Obstructiv Problem Active U nivers e sleep e sleep ity of apnea, apnea, [place] adult adult Physici ans Migraine Migraine Problem Active Unive rs headache headache ity of [place] [facility] Chronic Chronic Problem Active Univers GERD GERD [facility] of [place] [facility] History of History of Problem Resolve Univers arthritis arthritis d ity of [place] [facility] History of History of Problem [...] History Uni versity of Family Member cerebrovascular [place] [facility] accident (CVA) Social History Social Habit Start Date Stop Date Quantity Comments Source Sex Assigned At [facility] ethodist Tobacco use and 2018-05-25 2018-05-[address] [facility] ethodist exposure 00:00:00 00:00:00 Alcohol intake 2018-05-25 2018-05-25 Current [facility] thodist 00:00:00 00:00:00 non-drinker of alcohol (finding) History of 2018-04-25 [facility] Smoking Status Start Date Stop Date Source Former smoker 2018-05-25 00:00:00 2018-05-25 00:00:00 [facility] Medications Ordered Filled Start Stop Current Ordering Indication Dosage Frequency Signature Comments Components Source Medication Medication Date Date Medication? Clinician (SIG) Name Name Promethazin Promethazin 2019-0 2020- No Norah [address] [facility] [address] e HCl e HCl 4-28 05-03 [place] [facility] needed [facility]: [facility] for n/v [facility] 00 :[facility] SUMAtriptan SUMAtriptan Yes POURAN inject PRN Univers Succinate 6 Succinate 6 2-21 BENJA onset of ity of MG/0.5ML MG/0.5ML 00:00: M.D. the [place] Subcutaneou Subcutaneou 00 cluster Physici s Solution [...] 1 Univers Besylate 10 Besylate 10 0-23 BEJNA TABLET ity of MG Oral MG Oral 00:00: M.D. DAILY. [place] Tablet Tablet 00 Physici ans Zofran Zofran Yes Norah 1 tablet [facility] [place] [facility] Losartan Losartan Yes Norah [address] Potassium-H Potassium-H [place] [facility] CT[facility]Z [facility] Hydrocodone Hydrocodone Yes Norah [address] -Acetaminop -Acetaminop [place] as needed [facility] Adderall XR Adderall XR Yes Norah [address] [facility] [place] in the [facility] - morning [facility] Omeprazole Omeprazole Yes Norah [address] [facility] [place] 30 minutes [facility] - before [facility] morning l meal [facility] Dicyclomine Dicyclomine Yes Norah [address] HCl HCl [place] [facility] Immunizations Ordered Immunization Filled Immunization Date Status Commen ts Source Name Name Taryn Quadrivalent 2018-06-03 Completed Univ ersity of 0.5 ML Intramuscular 14:35:00 [place] [facility] Sus[place] Vital Signs Vital Name Observation Time Observation Value Comments Source BP Systolic 2018-10-02 155 mm[Hg] [facility] :: Position: [place] [facility] Sitting BP Diastolic 2018-10-02 88 mm[Hg] [facility] :: Position: [place] [facility] Sitting Height 2018-10-02 75 [in_us] [facility] ::00 [place] [facility] s Weight 2018-10-02 302 [lb_av] [facility] :: [place] [facility] Body Mass Index 2018-10-02 37.75 kg/m2 University o f Calculated 15:26:00 [place] [facility] Temperature 2018-10-02 98 [degF] Method: Oral [facility] :: [place] [facility] Heart Rate 2018-10-02 63 /min Location: [facility] ::00 Apical; [place] [facility] BP Systolic 2018-09-25 154 mm[Hg] [facility] ::00 Position: [place] [facility] Sitting BP Diastolic 2018-09-25 98 mm[Hg] [facility] ::00 Position: [place] [facility] Sitting Heart Rate 2018-09-25 70 /min Quality: Normal University o f 10:26:00 [place] [facility] BP Systolic 2018-09-25 169 mm[Hg] [facility] 10:25:00 Position: [place] [facility] Sitting BP Diastolic 2018-09-25 65 mm[Hg] [facility] ::00 Position: [place] [facility] Sitting Heart Rate 2018-09-25 67 /min Quality: Normal University o f 10:25:00 [place] [facility] Height 2018-09-25 75 [in_us] University of :25:00 [place] [facility] Weight 2018-09-25 295 [lb_av] [facility] ::00 [place] [facility] Body Mass Index 2018-09-25 36.87 kg/m2 University o f Calculated 10:25:00 [place] [facility] Temperature 2018-09-25 98.3 [degF] Method: Oral University of 10:25:00 [place] [facility] O2 SAT 2018-09-25 99 % University 10:25:00 [place] [facility] BP Systolic 2018-06-03 136 mm[Hg] [facility] :09:00 Position: [place] [facility] Sitting BP Diastolic 2018-06-03 75 mm[Hg] [facility] :09:00 Position: [place] [facility] Sitting Height 2018-06-03 75 [in_us] University :09:00 [place] [facility] Weight 2018-06-03 317 [lb_av] [facility] :09: [place] [facility] Body Mass Index 2018-06-03 39.62 kg/m2 University o f Calculated 14:09:00 [place] [facility] Temperature 2018-06-03 97.9 [degF] Method: Oral [facility] ::00 [place] [facility] Heart Rate 2018-06-03 74 /min [facility] ::00 [place] [facility] Procedures Procedure Date / Time Performing Clinician Source Performed [U] XRAY KNEE 4 OR MORE 2018-07-24 00:00:00 [facility] VWS RIGHT [id number] Physicians Emg/Ncv 2018-06-20 00:00:00 [place] o f [place] [facility] Sleep Lab - Sleep 2018-06-03 00:00:00 [facility] Study Split Night Physicians History of Cubital tunnel [facility] repair Physicians History of Appendectomy [facility] Physicians History of Wrist surgery [facility] Physicians History of [facility] [place] Hemorrhoidectomy Physicians Plan of Care Planned Activity Planned Date Details Comments Source Future Scheduled 2020-03-12 INFLUENZA VACCINE [place] [facility] Test 00:00:00 [code = INFLUENZA VACCINE] Diagnostic Test 2018-06-20 Emg/Ncv [code = [facility] [place] Pending 00:00:00 Emg/Ncv] Physicians Diagnostic Test 2018-06-20 Emg/Ncv [code = [facility] [place] Pending 00:00:00 Emg/Ncv] Physicians Future Scheduled 1996 COVID-19 VACCINE (1 [place] [facility] Test 00:00:00 of 2) [code = COVID-19 VACCINE (1 of 2)] Encounters Start End Encounter Admission Attending Care Care Encounter Source Date/Time Date/Time Type Type Clinicians Facility Department ID 2020-07-20 2020-07-20 Orders Doctor AICHA [id number] 00:00:00 00:00:00 Only Unassigned, ABDULKADIR [id number] [facility] [id number] 2020-07-20 2020-07-20 Outpatient [facility] [id number] [facility] 2020-07-12 2020-07-12 Out[facility] [id number] [facility] 2020-05-23 2020-05-23 Outpatient [facility] [id number] [facility] 2020-02-24 2020-02-24 [facility] [id number] [address] 14:42:00 14:42:00 t [facility] Medicine Outpati ent Clinics 2020-02-22 2020-02-22 [facility] [id number] 13:51:00 13:51:00 [facility] Medicine Outpat[facility] Clinics 2019-12-10 2019-12-10 [facility] [id number] 15[facility]39:00 15:39:00 [facility] Medicine Outpat[facility] Clinics 2019-12-08 2019-12-08 [facility] [id number] 13:40:00 13:40:00 [facility] Medicine Outpati ent Clinics 2019-12-07 2019-12-07 [facility] [id number] 12:05:00 12:05:00 [facility] Medicine Outpati ent Clinics 2019-11-16 2019-11-16 [facility] [id number] 11:00:00 11:00:00 [facility] 2019-10-21 2019-10-21 Emergency Blaire Guevara [facility] [id number] 11:24:16 14:51:00 Sintia Armstrong [id number] [place] [id number] [place] [id number] 2019-09-29 2019-09-29 [facility] [id number] 09:21:00 09:21:00 [facility] Clin[facility] 2019-09-21 2019-09-21 [facility] [id number] 14:00:00 14:00:00 t [facility] ent Clinics 2019-03-13 2019-03-13 Appointmen EUNICE LICONA [id number] Univers 09:00:00 09:00:00 t; Lesa RODRIGUEZ [place] NANCY, Physici M.D. ans 2018-10-02 2018-10-02 Appointmen EUNICE YOUSIF [id number] Univers 15:00:00 15:00:00 t; Asher JONES M.D. [place] POURAN, Physici M.D. ans 2018-09-25 2018-09-25 Appointmen EUNICE CEJA [facility] [id number] Univers 10:30:00 10:30:00 t; BRANT CEJA NP Health and Luz NP Wellness [facility] Valery Scott ans 2018-09-22 2018-09-22 Appointmen EUNICE YOUSIF [id number] Univers 15:30:00 15:30:00 t; Asher JONES M.D. [place] POURAN, Physici M.D. ans 2018-08-22 2018-08-22 Appointmen EUNICE MUNOZ [id number] Univers 09:30:00 09:30:00 t; Lesa BRYANT [place] GEOFF, Physici M.D. ans 2018-07-29 2018-07-29 [facility] [id number] Univers 14:30:00 14:30:00 t; Lesa BRYANT [place], [place] Valery BRYANT M.D. ans 2018-07-25 2018-07-25 Appointmen [facility] Orthopedics [id number] Univers 10:30:00 10:30:00 t; Lesa BRITT at [place], [place] Valery BRITT M.D. ans 2018-07-22 2018-07-22 [facility] [id number] Univers 11:15:00 11:15:00 t; Lesa BRYANT [facility], Orthopedics Norberto as Valery BRYANT M.D. ans 2018-07-15 2018-07-15 [facility] [id number] Univers 10:30:00 10:30:00 t; Lesa BRYANT [facility], Orthopedics Norberto as Valery BRYANT M.D. ans 2018-07-09 2018-07-09 [facility] [id number] Univers 13:00:00 13:00:00 t; Lesa BRYANT [place], [place] Valery BRYANT M.D. ans 2018-06-30 2018-06-30 [facility] [id number] Univers 10:15:00 10:15:00 t; Lesa BRYANT [facility], Orthopedics Norberto as Valery BRYANT M.D. ans 2018-06-20 2018-06-20 [facility] [id number] Univers 13:40:00 13:40:00 t; SHANE MONROE [facility] ty of [place], [place] SHANE MONROE Physi ci ans 2018-06-19 2018-06-19 App[facility] [id number] Univers 08:15:00 08:15:00 t; SERJIO HUERTA D.O. ity of [place], [place] Tricia.OClemente Physici ans 2018-06-17 2018-06-17 Appointmen EUNICE MUNOZ [facility] [id number] Univers 15:45:00 15:45:00 t; Lesa BRYANT [facility] narayan [facility], Orthopedics Norberto as Valery BRYANT M.D. ans 2018-06-03 2018-06-03 Appointmen EUNICE HUERTA [facility] [id number] Univers 13:45:00 13:45:00 t; SERJIO HUERTA D.O. [facility].OClemente Physici ans Results Test Description Test Time Test Comments Results Result Sour e Comments [U] XRAY ELBOW 2 2018-06-17 [facility] RIGHT [id number] 15:57:00 acquired, not [place] reported on Physicians this accession number. [U] XRAY WRIST 2018-06-17 Images University [facility] 3 VWS RIGHT 15:57:00 acquired, not [place] [id number] reported on Physicians this accession number.
--- OUTSIDE RECORDS SUMMARY | 2020-09-02 14:40 | XMS REPORT | Clinical Summary ---
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
[2020-09-02 16:54] LABS: Absolute Lymphocytes (CBC) 2.2 K/uL (0.7-4.9); Basophils % 0.8 % (0-1.3); Hematocrit 46.6 % (39.6-49.0); Lymphocytes % 31.6 % (15.3-44.8); MPV 9.5 fL (7.6-11.3); RBC Red Blood Cell Count 5.43 M/uL (4.33-5.43)
[2020-09-02] MEDS ORDERED: DIPHENHYDRAMINE 50 MG/ML VIAL ONE (17:03)
[2020-09-02] MEDS ORDERED: DIAZEPAM 10 MG/2 ML INJ SYRINGE ONE (17:04)
[2020-09-02] MEDS ORDERED: KETOROLAC 30 MG/ML INJ ONE (17:05)
[2020-09-02] MEDS ORDERED: NA CHLORIDE 0.9% 1,000 ML ONE (17:05)
[2020-09-02 17:18] LABS: Potassium 4.3 mmol/L (3.5-5.1)
--- NOTE | 2020-09-02 17:48 | RAD REPORT ---
EXAM DESCRIPTION: Shoulder Right 2 View - 09/02/2020 5:17 pm CLINICAL HISTORY: PAIN, soft tissue injury, bug bite, painful range of motion COMPARISON: No comparisons TECHNIQUE: Internal and external rotation views of the right shoulder were obtained. FINDINGS: There is no fracture or dislocation. Mild AC joint degenerative changes are present prima rily along the superior margin of the acromion. Acromial humeral joint space is narrowed slightly. No abnormal soft tissue calcifications seen. Clothing artifacts are seen. Punctate hyperdensities could be skin or clothing artifact or even possibly tattoos. No acute or destructive process. No air or suspicious foreign body in the soft tissues. IMPRESSION: Minimal shoulder joint degenerative change as detailed. No acute findings seen.
--- NOTE | 2020-09-02 18:31 | ER ---
Nurse's Notes [facility] Name: Terry Akins Sr Age: 40 yrs Sex: Male : 1980 Arrival Date: 09/02/2020 Time: 14:40 Bed 18 Private MD: Diagnosis: Insect bite (nonvenomous) of right shoulder;Headache;Pain in right shoulder Presentation: 09/02 15:00 Chief complaint: Patient states: Been bit by a spider 3x this morning on my R shoulder. ca1 Now am having pain on my R shoulder and neck, R anterior shoulder. Feels like there is something squeezing on my neck and my head is going to explode. Denies difficulty swallowing and breathing. My R arm feels heavy right now. This is my 4th time to be bit by a spider. One was on belly and it made me swell up all over. I feel very tired and dizzy right now. Coronavirus screen: Client denies travel out of the [place] in the last 14 days. At this time, the client does not indicate any symptoms associated with coronavirus-19. Ebola Screen: Patient negative for fever greater than or equal to 101.5 degrees Fahrenheit, and additional compatible Ebola Virus Disease symptoms Patient denies exposure to infectious person. Patient denies travel to an Ebola-affected area in the 21 days before illness onset. No symptoms or risks identified at this time. Initial Sepsis Screen: Does the patient meet any 2 criteria? No. Patient's initial sepsis screen is negative. Does the patient have a suspected source of infection? No. Patient's initial sepsis screen is negative. Risk Assessment: Do you want to hurt yourself or someone else? Patient reports no desire to harm self or others. Onset of symptoms was September 02, 2020. 15:00 Method Of Arrival: Ambulatory ca1 15:00 Acuity: SARITHA 3 ca1 Triage Assessment: 17:02 Headache History: The patient has had previous headaches and this one is similar to jd3 previous episodes. Pain: Pain at worst was 10 out of 10 on a pain scale. Pain began gradually, Also complains of sleeplessness. Historical: - Allergies: 15:06 No Known Allergies; ca1 - PMHx: 15:06 carpal tunnel; GERD; Hypertension; ca1 - PSHx: 15:06 Appendectomy; ca1 - Immunization history:: Last tetanus immunization: unknown, Flu vaccine is not up to date. - Social history:: Smoking status: Patient reports the use of cigarette tobacco products, cigars. Screenin:01 Abuse screen: Denies threats or abuse. Nutritional screening: No deficits noted. jd3 Tuberculosis screening: No symptoms or risk factors identified. Fall Risk Ambulatory Aid- None/Bed Rest/Nurse Assist (0 pts). Gait- Normal/Bed Rest/Wheelchair (0 pts) Mental Status- Oriented to own ability (0 pts). Total Moss Fall Scale indicates No Risk (0-24 pts). Assessment: 15:57 Reassessment: Pt states, "my body feels heavy now, I am having trouble breathing and my ca1 pain is going to my chest". Notified provider. No order. No rooms/bed available at this time. 15:57 Respiratory: Airway is patent Respiratory effort is even, unlabored, Respiratory ca1 pattern is regular, symmetrical, Breath sounds are clear bilaterally. 16:59 General: Appears in no apparent distress. uncomfortable, Behavior is calm, cooperative, jd3 appropriate for age. Pain: Complains of pain in right scapular area Quality of pain is described as aching, pressure. Neuro: Level of Consciousness is awake, alert, obeys commands, Oriented to person, place, time, situation. Cardiovascular: Denies chest pain, Capillary refill < 3 seconds Patient's skin is warm and dry. GI: No signs and/or symptoms were reported involving the gastrointestinal system. : No signs and/or symptoms were reported regarding the genitourinary system. EENT: No signs and/or symptoms were reported regarding the EENT system. Derm: Skin is intact, Skin is dry, Skin is normal, Skin temperature is warm. Musculoskeletal: Circulation, motion, and sensation intact. Range of motion: intact in all extremities. 18:13 Reassessment: Patient appears in no apparent distress at this time. Patient and/or jd3 family updated on plan of care and expected duration. Pain level reassessed. Patient is alert, oriented x 3, equal unlabored respirations, skin warm/dry/pink. Patient states feeling better. Patient states symptoms have improved. 18:54 Reassessment: Patient appears in no apparent distress at this time. Patient and/or jd3 family updated on plan of care and expected duration. Pain level reassessed. Patient is alert, oriented x 3, equal unlabored respirations, skin warm/dry/pink. even and steady gait upon discharge to [facility] lobby to wait for family. Patient states feeling better. Vital Signs: 15:00 BP 156 / 94; Pulse 75; Resp 16 S; Temp 97.1(TE); Pulse Ox 99% on R/A; Weight 140.61 kg ca1 (R); Height 6 ft. 3 in. (190.50 cm) (R); Pain 10/10; 15:57 Pulse 71; Resp 17 S; Pulse Ox 99% on R/A; ca1 16:04 BP 113 / 96; ca1 17:02 BP 138 / 83; Pulse 75; Resp 17 S; Pulse Ox 99% on R/A; jd3 18:13 BP 150 / 82; Pulse 82; Resp 17 S; Pulse Ox 100% on R/A; jd3 15:00 Body Mass Index 38.75 (140.61 kg, 190.50 cm) ca1 ED Course: 14:40 Patient arrived in ED. as 15:05 Triage completed. ca1 15:06 Arm band placed on right wrist. ca1 16:23 Talon Lakhani PA is PHCP. cp 16:23 Jordin uGillaume MD is Attending Physician. cp 16:29 Osito Roland RN is Primary Nurse. jd3 16:59 Inserted saline lock: 20 gauge in right antecubital area, using aseptic technique. jd3 Blood collected. 17:01 Patient has correct armband on for positive identification. Bed in low position. Call jd3 light in reach. Side rails up X 1. Pulse ox on. NIBP on. 18:08 XRAY Shoulder RIGHT 2 view Sent. sv 18:08 BMP Sent. sv 18:08 CBC with Diff Sent. sv 18:53 No provider procedures requiring assistance completed. IV discontinued, intact, jd3 bleeding controlled, No redness/swelling at site. Pressure dressing applied. Administered Medications: 16:58 Drug: NS 0.9% 1000 ml Route: IV; Rate: 1 bolus; Site: right antecubital; jd3 17:50 Follow up: Response: No adverse reaction; IV Status: Completed infusion; IV Intake: jd3 1000ml 16:58 Drug: TORadol - Ketorolac 15 mg Route: IVP; Site: right antecubital; jd3 17:50 Follow up: Response: No adverse reaction jd3 16:58 Drug: Benadryl 12.5 mg Route: IVP; Site: right antecubital; jd3 17:50 Follow up: Response: No adverse reaction jd3 16:59 Drug: Diazepam 5 mg Route: IVP; Site: right antecubital; jd3 17:00 Follow up: Response: No adverse reaction; RASS: Alert and Calm (0) jd3 18:37 Drug: fentaNYL (PF) 25 mcg Route: IVP; Site: right antecubital; jd3 18:56 Follow up: Response: No adverse reaction; RASS: Alert and Calm (0) jd3 Intake: 17:50 IV: 1000ml; Total: 1000ml. jd3 Outcome: 18:30 Discharge ordered by MD. cp 18:53 Discharged to home ambulatory, with family. jd3 18:53 Condition: stable 18:53 Discharge instructions given to patient, Instructed on discharge instructions, follow up and referral plans. medication usage, Demonstrated understanding of instructions, follow-up care, medications, Prescriptions given X 3. 18:56 Patient left the ED. jd3 Signatures: Flavia Rivera, RN RN Zoya Riley Corey, PA PA cp Davies, Jonathon, RN RN jd3 Acob, Cheryl, RN RN ca1 Corrections: (The following items were deleted from the chart) 18:55 18:54 Reassessment: Patient appears in no apparent distress at this time. Patient jd3 and/or family updated on plan of care and expected duration. Pain level reassessed. Patient is alert, oriented x 3, equal unlabored respirations, skin warm/dry/pink. Patient states feeling better. jd3 18:56 18:56 Response: No adverse reaction jd3 jd3
--- NOTE | 2020-09-02 18:31 | EDPHYS ---
Physician Documentation [facility] Name: Terry Akins Sr Age: 40 yrs Sex: Male : 1980 Arrival Date: 09/02/2020 Time: 14:40 Bed 18 Private MD: ED Physician Jordin Guillaume HPI: 09/02 16:35 This 40 yrs old Black Male presents to ER via Ambulatory with complaints of Shoulder cp Pain, Headache, Insect Bite. 16:35 The patient or guardian complains of a bite, spider, pain, that is acute. right cp scapular area. 16:35 Onset: The symptoms/episode began/occurred this morning. cp 16:35 Associated signs and symptoms: Pertinent positives: neck pain, headache, Pertinent cp negatives: abdominal pain, chest pain, diaphoresis, Numbness in right arm shortness of breath, fever. Treatment prior to arrival includes: no previous treatment. Historical: - Allergies: 15:06 No Known Allergies; ca1 - PMHx: 15:06 carpal tunnel; GERD; Hypertension; ca1 - PSHx: 15:06 Appendectomy; ca1 - Immunization history:: Last tetanus immunization: unknown, Flu vaccine is not up to date. - Social history:: Smoking status: Patient reports the use of cigarette tobacco products, cigars. ROS: 16:45 Constitutional: Negative for body aches, chills, fever, poor PO intake. cp 16:45 Eyes: Negative for injury, pain, redness, and discharge. cp 16:45 ENT: Negative for ear pain, sore throat, difficulty swallowing, difficulty handling secretions. 16:45 Neck: Positive for pain with movement, pain at rest, stiffness, tenderness, of the right side of neck. 16:45 Cardiovascular: Negative for chest pain, edema, palpitations. 16:45 Respiratory: Negative for cough, shortness of breath, wheezing. 16:45 Abdomen/GI: Negative for abdominal pain, nausea, vomiting, and diarrhea. 16:45 Back: Negative for pain at rest, pain with movement. 16:45 Skin: Negative for cellulitis, rash. 16:45 Neuro: Positive for headache, Negative for altered mental status, dizziness, weakness. 16:45 All other systems are negative. Exam: 16:50 Constitutional: The patient appears in no acute distress, alert, awake, cp non-diaphoretic, non-toxic, well developed, well nourished, obese. 16:50 Head/Face: Normocephalic, atraumatic. cp 16:50 Eyes: Periorbital structures: appear normal, Pupils: equal, round, and reactive to light and accomodation, Extraocular movements: intact throughout, Conjunctiva: normal, no exudate, no injection, Sclera: no appreciated abnormality, Lids and lashes: appear normal, bilaterally. 16:50 ENT: External ear(s): are unremarkable, Nose: is normal, Posterior pharynx: Airway: no evidence of obstruction, patent. 16:50 Neck: External neck: tenderness, that is moderate, right lateral neck, ROM/movement: pain, that is moderate, with rotation to the right, limited range of motion, is not appreciated, Meningeal signs: are not present. 16:50 Chest/axilla: Inspection: normal, Palpation: is normal, no crepitus, no tenderness. 16:50 Cardiovascular: Rate: normal, Rhythm: regular, Pulses: Pulses are 2+ in right radial artery. 16:50 Respiratory: the patient does not display signs of respiratory distress, Respirations: normal, no use of accessory muscles, no retractions, labored breathing, is not present, intercostal retractions, are absent, Breath sounds: are clear throughout, no decreased breath sounds, no stridor, no wheezing. 16:50 Abdomen/GI: Exam negative for discomfort, distension, guarding, Inspection: abdomen appears normal. 16:50 Back: pain, that is moderate, of the right trapezius and right scapular area, mild swelling noted, mild erythema, small superficial bite wound noted. 16:50 Neuro: Orientation: to person, place \T\ time. Mentation: is normal, Cerebellar function: is grossly normal, Motor: moves all fours, strength is normal, Sensation: is normal. Vital Signs: 15:00 BP 156 / 94; Pulse 75; Resp 16 S; Temp 97.1(TE); Pulse Ox 99% on R/A; Weight 140.61 kg ca1 (R); Height 6 ft. 3 in. (190.50 cm) (R); Pain 10/10; 15:57 Pulse 71; Resp 17 S; Pulse Ox 99% on R/A; ca1 16:04 BP 113 / 96; ca1 17:02 BP 138 / 83; Pulse 75; Resp 17 S; Pulse Ox 99% on R/A; jd3 18:13 BP 150 / 82; Pulse 82; Resp 17 S; Pulse Ox 100% on R/A; jd3 15:00 Body Mass Index 38.75 (140.61 kg, 190.50 cm) ca1 MDM: 16:24 Patient medically screened. cp 17:00 Differential diagnosis: tendonitis, allergic reaction, cellulitis, abscess. cp 18:30 Data reviewed: vital signs, nurses notes, lab test result(s), radiologic studies, plain cp films. 18:30 Counseling: I had a detailed discussion with the patient and/or guardian regarding: the cp historical points, exam findings, and any diagnostic results supporting the discharge/admit diagnosis, lab results, radiology results, the need for outpatient follow up, a family practitioner, to return to the emergency department if symptoms worsen or persist or if there are any questions or concerns that arise at home. Response to treatment: the patient's symptoms have markedly improved after treatment, VSS. Pain improved. Will discharge to home for continued monitoring. 09/02 16:29 Order name: CBC with Diff cp 09/02 16:29 Order name: BMP cp 09/02 16:29 Order name: XRAY Shoulder RIGHT 2 view cp 09/02 17:03 Order name: CBC with Automated Diff; Complete Time: 17:40 EDMS 09/02 17:18 Order name: Basic Metabolic Panel; Complete Time: 17:40 EDMS 09/02 17:40 Interpretation: Normal except: CL 109; GLUC 109; GFR 78. cp 09/02 17:49 Order name: RAD; Complete Time: 18:08 EDMS 09/02 16:29 Order name: IV; Complete Time: 16:45 cp Administered Medications: 16:58 Drug: NS 0.9% 1000 ml Route: IV; Rate: 1 bolus; Site: right antecubital; jd3 17:50 Follow up: Response: No adverse reaction; IV Status: Completed infusion; IV Intake: jd3 1000ml 16:58 Drug: TORadol - Ketorolac 15 mg Route: IVP; Site: right antecubital; jd3 17:50 Follow up: Response: No adverse reaction jd3 16:58 Drug: Benadryl 12.5 mg Route: IVP; Site: right antecubital; jd3 17:50 Follow up: Response: No adverse reaction jd3 16:59 Drug: Diazepam 5 mg Route: IVP; Site: right antecubital; jd3 17:00 Follow up: Response: No adverse reaction; RASS: Alert and Calm (0) jd3 18:37 Drug: fentaNYL (PF) 25 mcg Route: IVP; Site: right antecubital; jd3 18:56 Follow up: Response: No adverse reaction; RASS: Alert and Calm (0) j Disposition: 09/02/20 18:30 Discharged to Home. Impression: Insect bite (nonvenomous) of right shoulder, Headache, Pain in right shoulder. - Condition is Stable. - Discharge Instructions: General Headache Without Cause, Shoulder Pain, Spider Bite, Shoulder Range of Motion Exercises. - Prescriptions for Cyclobenzaprine 10 mg Oral Tablet - take 1 tablet by ORAL route every 8 hours As needed; 20 tablet. Diclofenac Sodium 75 mg Oral Tablet, Delayed Release (E.C.) - take 1 tablet by ORAL route 2 times per day; 20 tablet. Bactrim DS 800- 160 mg Oral Tablet - take 1 tablet by ORAL route every 12 hours for 7 days; 14 tablet. - Medication Reconciliation Form, Thank You Letter, Antibiotic Education, Prescription Opioid Use, Work release form form. - Follow up: Private Physician; When: 2 - 3 days; Reason: Worsening of condition. - Problem is new. - Symptoms have improved. Addendum: 09/05/2020 06:25 Co-signature as Attending Physician, Jordin Guillaume MD I agree with the assessment and t w4 plan of care. Signatures: Dispatcher [employer] EDMS Talon Lakhani PA PA cp Davies, Jonathon, RN RN jd3 Wadley, Terrence, MD MD tw4 Nely Hinson RN RN ca1 Corrections: (The following items were deleted from the chart) 09/02 18:56 18:30 09/02/2020 18:30 Discharged to Home. Impression: Insect bite (nonvenomous) of jd3 right shoulder; Headache; Pain in right shoulder. Condition is Stable. Forms are Medication Reconciliation Form, Thank You Letter, Antibiotic Education, Prescription Opioid Use. Follow up: Private Physician; When: 2 - 3 days; Reason: Worsening of condition. Problem is new. Symptoms have improved. cp
[2020-09-02] MEDS ORDERED: FENTANYL CITR 100 MCG/2 ML ONE (18:49)
[2020-09-02 19:01] VITALS: TEMP 97.1
[2020-09-02 19:05] VITALS: BP 150/82; O2SAT 100
== END 2020-09-02 18:56 | disposition home or self-care (01) ==
LOC: ER 14:37
DX: S40.261A Insect bite (nonvenomous) of right shoulder, initial encounter (principal); R51.9 Headache, unspecified; I10 Essential (primary) hypertension; F17.290 Nicotine dependence, other tobacco product, uncomplicated
CPT/HCPCS: 96361; 85025; 80048; 36415; 73030; 96375; 96374; 99284; J1200; J3360; J3010; J7030

== ENCOUNTER 2020-12-12 04:57 | Emergency (ER) | payer OTHER ==
--- OUTSIDE RECORDS SUMMARY | 2020-12-12 05:01 | XMS REPORT | Continuity of Care Document ---
:1980 Author Organization [facility] t Address [address] [place] [address] Care Team Providers Name Role Phone Asked, Pcp Primary Care Physician Unavailable Sintia Hooks Attending Clinician Doctor Unassigned, Name Attending Clinician Unavailable BEHAALFONZON Attending Clinician Unavailable BENJA Attending Clinician Unavailable BIBLAIRU Attending Clinician Unavailable TAMMY Attending Clinician Unavailable KESHIA Attending Clinician Unavailable ROTH Attending Clinician Unavailable BRADLEY Attending Clinician Unavailable Problems Condition Condition Condition Status Onset Resolution Last Treating Co mments Source Name Details Category Date Date Treatment Clinician Date Syncope Syncope Disease Active 2017-08 [place] 0-14 Methodi 00:00: st 00 Cubital Cubital [...] Univers essential essential ity of HTN HTN [place] [facility] Obstructiv Obstructiv Problem Active U [...] Start Date Stop Date Quantity Comments Source Tobacco use and 2018-05-25 2018-05-25 Never used [facility] ethodist exposure 00:00:00 00:00:00 Alcohol intake 2018-05-25 2018-05-25 Current [facility] thodist 00:00:00 00:00:00 non-drinker of alcohol (finding) History of 2018-04-25 Current smoker [facility] thodist tobacco use 00:00:00 Sex Ass[birth year] At [birth year] [facility] ethodist 00:00:00 00:00:00 Smoking Status Start Date Stop Date Source Former smoker 2018-05-25 00:00:00 2018-05-25 00:00:00 [place] [facility] Medications Ordered Filled Start Stop Current Ordering Indication Dosage Frequency Signature Comments Components Source Medication Medication Date Date Medication? Clinician (SIG) Name Name Marysol Gregg 0 2020- No Norah [address] [facility] e HCl e HCl 4-28 05-03 [place] [facility]: [facility] for n/v [facility] 00 :[facility] SUMAtriptan SUMAtriptan [...] [place] [facility] Losartan Losartan Yes Norah [address] Potassium-H Potassium-H [place] [facility] CTZ CTZ [facility] Hydrocodone Hydrocodone Yes Norah [address] [facility] -Acetaminop -Acetaminop [place] as needed [facility] Adderall XR Adderall XR Yes Norah [address] [facility] [place] in the [facility] morning [facility] Omeprazole Omeprazole Yes Norah [address] [facility] [place] 30 minutes [facility] - before Memoria morning l meal [facility] Dicyclomine Dicyclomine Yes Norah [address] [facility] HCl HCl [place] [facility] Immunizations Ordered Immunization Filled Immunization Date Status Commen ts Source Name Name Taryn Stephen 2018-06-03 Completed Univ ersity of 0.5 [place] Intramuscular 14:[place] [facility] Vital Signs Vital Name Observation Time Observation Value Comments Source BP Systolic 2018-10-02 155 mm[Hg] Location: [facility] ::00 Position: [place] [facility] Sitting BP Diastolic 2018-10-02 88 mm[Hg] Location: [facility] ::00 Position: [place] [facility] Height 2018-10-02 75 [in_us] [facility] ::00 [place] [facility] Weight 2018-10-02 302 [lb_av] [facility] ::00 [place] [facility] Body Mass Index 2018-10-02 37.75 kg/m2 University o f Calculated 15:26:00 [place] [facility] Temperature 2018-10-02 98 [degF] Method: Oral [facility] 15::00 [place] [facility] Heart Rate 2018-10-02 63 /min Location: [facility] ::00 Apical; [place] [facility] BP Systolic 2018-09-25 154 mm[Hg] Location: [facility] ::00 Position: [place] [facility] Sitting BP Diastolic 2018-09-25 98 mm[Hg] Location: [facility] ::00 Position: [place] [facility] Sitting Heart Rate 2018-09-25 70 /min Quality: Normal University o f 10:26:00 [place] [facility] BP Systolic 2018-09-25 169 mm[Hg] Location: [facility] 10:25:00 Position: [place] [facility] Sitting BP Diastolic 2018-09-25 65 mm[Hg] Location: [facility] 10:25:00 Position: [place] [facility] Sitting Heart Rate 2018-09-25 67 /min Quality: Normal University o f 10:25:00 [place] [facility] Height 2018-09-25 75 [in_us] [facility] 10:25:00 [place] [facility] Weight 2018-09-25 295 [lb_av] [place] of 10:25:00 [place] [facility] Body Mass Index 2018-09-25 36.87 kg/m2 University o f Calculated 10:25:00 [place] [facility] Temperature 2018-09-25 98.3 [degF] Method: Oral University 10:25:00 [place] [facility] O2 SAT 2018-09-25 99 % University 10:25:00 [place] [facility] BP Systolic 2018-06-03 136 mm[Hg] Location: [facility] :09:00 Position: [place] [facility] Sitting BP Diastolic 2018-06-03 75 mm[Hg] Location: [facility] :09:00 Position: [place] [facility] Sitting Height 2018-06-03 75 [in_us] University 14:09:00 [place] [facility] Weight 2018-06-03 317 [lb_av] [facility] :: [place] [facility] Body Mass Index 2018-06-03 39.62 kg/m2 University o f Calculated 14:09:00 [place] [facility] Temperature 2018-06-03 97.9 [degF] Method: Oral [facility] ::00 [place] [facility] Heart Rate 2018-06-03 74 /min [facility] ::00 [place] [facility] Procedures Procedure Date / Time Performing Clinician Source Performed [U] XRAY KNEE 4 OR MORE 2018-07-24 00:00:00 [facility] VWS RIGHT [id number] Physicians Emg/Ncv 2018-06-20 00:00:00 [place] [facility] f [place] [facility] Sleep Lab - Sleep 2018-06-03 00:00:00 [facility] Study Split Night Physicians History of Cubital tunnel [facility] repair Physicians History of Appendectomy [facility] Physicians History of Wrist surgery [facility] Physicians History of [facility] xa Hemorrhoidectomy Physicians Plan of Care Planned Activity Planned Date Details Comments Source Future Scheduled 2021-03-12 INFLUENZA VACCINE [place] [facility] Test 00:00:00 [code = INFLUENZA VACCINE] Diagnostic Test 2018-06-20 Emg/Ncv [code = [facility] [place] Pending 00:00:00 Emg/Ncv] Physicians Diagnostic Test 2018-06-20 Emg/Ncv [code = [facility] [place] Pending 00:00:00 Emg/Ncv] Physicians Future Scheduled 1998 Hepatitis C U[facility] [place] hodist Test 00:00:00 screening (procedure) [code = 217545761] Future Scheduled 1996 COVID-19 VACCINE [place] Taoist Test 00:00:00 (1) [code = COVID-19 VACCINE (1)] Encounters Start End Encounter Admission Attending Care Care Encounter Source Date/Time Date/Time Type Type Clinicians Facility Department ID 2020-11-21 2020-11-21 Emergency Blaire Guevara [facility] [id number] 16:01:00 20:48:00 Sintia Armstrong [id number] [place] [id number] [place] [id number] 2020-11-21 2020-11-21 Orders Doctor AICHA [id number] 00:00:00 00:00:00 Only Unassigned, ABDULKADIR [id number] 2020-07-20 2020-07-20 Orders Doctor AICHA [id number] 00:00:00 00:00:00 Only Unassigned, ABDULKADIR [id number] 2020-07-20 2020-07-20 Outpatient [facility] [id number] [facility] 2020-07-12 2020-07-12 Outpatient [facility] [id number] [facility] 2020-05-23 2020-05-23 Outpatient [facility] [id number] [facility] 2020-02-24 2020-02-24 [facility] [id number] 14:42:00 14:42:00 t [email or web address] [facility] [employer] [facility] Family Medicine l Medicine Outpati ent Clinics 2020-02-22 2020-02-22 [facility] [id number] 13:51:00 13:51:00 t [facility] [employer] [facility] Family Medicine l Medicine Outpati ent Clinics 2019-12-10 2019-12-10 [facility] [id number] 15:39:00 15:39:00 t [facility] ent Clinics 2019-12-08 2019-12-08 [facility] [id number] 13:40:00 13:40:00 t [facility] ent Clinics 2019-12-07 2019-12-07 [facility] [id number] 12:05:00 12:05:00 t [facility] ent Clinics 2019-11-16 2019-11-16 [facility] [id number] 11:00:00 11:00:00 t [facility] 2019-10-21 2019-10-21 Emergency PaolaBlaire [facility] [id number] 11:24:16 14:51:00 [facility] [id number] [place] [id number] [place] [id number] 2019-09-29 2019-09-29 [facility] [id number] 09:21:00 09:21:00 t [facility] ent Clinics 2019-09-21 2019-09-21 [facility] [id number] 14:00:00 14:00:00 t [facility] ent Clinics 2019-03-13 2019-03-13 Appointmen EUNICE LICONA [id number] Univers 09:00:00 09:00:00 t; Lesa RODRIGUEZ [place] NANCY, Physici M.D. ans 2018-10-02 2018-10-02 Appointmen EUNICE YOUSIFa [id number] Univers 15:00:00 15:00:00 t; Asher JONES M.D. [place] POURAN, Physici M.D. ans 2018-09-25 2018-09-25 Appointmen MARCIAL [facility] [id number] Univers 10:30:00 10:30:00 t; BRANT CEJA, SHANE Health and ity stephen GUO, RADIOTELEPHONE OPERATOR [facility] Valery Scott ans 2018-09-22 2018-09-22 Appointmen EUNICE YOUSIF [facility] [id number] Univers 15:30:00 15:30:00 t; ROBERT [facility] sadiey stephen YOUSIF M.D. [place] Valery JONES M.D. ans 2018-08-22 2018-08-22 [facility] [id number] Univers 09:30:00 09:30:00 t; Lesa BRYANT y of [place], [place] Valery BRYANT M.D. ans 2018-07-29 2018-07-29 Appointmen TAMMY [facility] [id number] Univers 14:30:00 14:30:00 t; Lesa BRYANT y of [place], [place] Valery BRYANT M.D. ans 2018-07-25 2018-07-25 Appointmen [facility] Orthopedics [id number] Univers 10:30:00 10:30:00 t; Lesa BRITT at [place], [place] Valery BRITT M.D. ans 2018-07-22 2018-07-22 Appointmen TAMMY [facility] [id number] Univers 11:15:00 11:15:00 t; Lesa BRYANT [facility]en [facility], Orthopedics Norberto as Valery BRYANT M.D. ans 2018-07-15 2018-07-15 [facility] [id number] Univers 10:30:00 10:30:00 t; Lesa BRYANT [facility] sadieHelen [facility], Orthopedics Norberto as Valery BRYANT M.D. ans 2018-07-09 2018-07-09 Appointmen TAMMY [facility] [id number] Univers 13:00:00 13:00:00 t; Lesa BRYANT y of [place], [place] Valery BRYANT M.D. ans 2018-06-30 2018-06-30 [facility] [id number] Univers 10:15:00 10:15:00 t; Lesa BRYANT [facility], Orthopedics Norberto as Valery BRYANT M.D. ans 2018-06-20 2018-06-20 [facility] [id number] Univers 13:40:00 13:40:00 t; SHANE MONROE [facility] ty of ROTH, Orthopedics [place] SHANE MONROE Physi ci ans 2018-06-19 2018-06-19 [facility] [id number] Univers 08:15:00 08:15:00 t; SERJIO HUERTA [place]. [place] Tricia.OClemente Physicsp ans 2018-06-17 2018-06-17 [facility] [id number] Univers 15:45:00 15:45:00 t; Lesa BRYANT [facility], Orthopedics Nor[place]to as Valery BRYANT M.D. ans 2018-06-03 2018-06-03 Appointmen BRADLEY [facility] [id number] Univers 13:45:00 13:45:00 t; SERJIO HUERTA D.O. [facility] [place], [place] D.OClemente Physici ans Results Test Description Test Time Test Comments Results Result Sour e Comments [U] XRAY ELBOW 2 2018-06-17 Images Universi ty of VWS RIGHT [id number] 15:57:00 acquired, not [place] reported on Physicians this accession number. [U] XRAY WRIST 2018-06-17 Images University of MIN 3 VWS RIGHT 15:57:00 acquired, not [place] [id number] reported on Physicians this accession number.
[2020-12-12] MEDS ORDERED: NA CHLORIDE 0.9% 1,000 ML ONE (05:59)
[2020-12-12] MEDS ORDERED: dexAMETHasone 10 MG/ML VIAL ONE (05:59)
[2020-12-12] MEDS ORDERED: METOCLOPRAMIDE 10 MG/2mL INJ ONE (05:59)
[2020-12-12] MEDS ORDERED: DIPHENHYDRAMINE 50 MG/ML VIAL ONE (05:59)
--- NOTE | 2020-12-12 08:07 | EDPHYS ---
Physician Documentation [facility] Name: Terry Akins Sr Age: 40 yrs Sex: Male : 1980 Arrival Date: 12/12/2020 Time: 04:59 Bed 17 Private MD: ED Physician Gigi Ramirez HPI: 12/12 05:24 This 40 yrs old Black Male presents to ER via Ambulatory with complaints of Headache, mh7 Vomiting, Blurred Vision. 05:24 The patient complains of pain to the top of head. The patient describes the headache as mh7 intermittent, throbbing. Onset: The symptoms/episode began/occurred 1 day(s) ago. Associated signs and symptoms: Pertinent positives: nausea, Photophobia vomiting, Pertinent negatives: altered mental status, dizziness, fever, malaise, neck stiffness, paresthesias, rash, sinus congestion, sinus tenderness, vision changes, vision loss, weakness, vertigo. Severity of symptoms: At its worst the pain was moderate, last night, in the emergency department the pain is unchanged. Headache History: The patient has had previous headaches and this one is similar to previous episodes. The symptoms are alleviated by nothing. the symptoms are aggravated by lights, noise. The patient has experienced similar episodes in the past, multiple times. Historical: - Allergies: 05:07 No Known Allergies; iw - Home Meds: 05:07 None [Active]; iw - PMHx: 05:07 carpal tunnel; GERD; Hypertension; iw - PSHx: 05:07 Appendectomy; iw - Immunization history:: Adult Immunizations not up to date. - Social history:: Smoking status: Patient denies any tobacco usage or history of. ROS: 05:24 Constitutional: Negative for fever, chills, and weight loss, Eyes: Negative for injury, mh7 pain, redness, and discharge. 05:24 Neck: Negative for injury, pain, and swelling, Cardiovascular: Negative for chest pain, palpitations, and edema, Respiratory: Negative for shortness of breath, cough, wheezing, and pleuritic chest pain, Back: Negative for injury and pain, : Negative for injury, bleeding, discharge, and swelling, MS/Extremity: Negative for injury and deformity, Skin: Negative for injury, rash, and discoloration, Psych: Negative for depression, anxiety, suicide ideation, homicidal ideation, and hallucinations, Allergy/Immunology: Negative for hives, rash, and allergies, Endocrine: Negative for neck swelling, polydipsia, polyuria, polyphagia, and marked weight changes, Hematologic/Lymphatic: Negative for swollen nodes, abnormal bleeding, and unusual bruising. 05:24 ENT: Positive for Nasal congestion. Exam: 05:24 Head/Face: Normocephalic, atraumatic. Eyes: Pupils equal round and reactive to light, mh7 extra-ocular motions intact. Lids and lashes normal. Conjunctiva and sclera are non-icteric and not injected. Cornea within normal limits. Periorbital areas with no swelling, redness, or edema. Neck: Trachea midline, no thyromegaly or masses palpated, and no cervical lymphadenopathy. Supple, full range of motion without nuchal rigidity, or vertebral point tenderness. No Meningismus. Chest/axilla: Normal chest wall appearance and motion. Nontender with no deformity. No lesions are appreciated. Cardiovascular: Regular rate and rhythm with a normal S1 and S2. No gallops, murmurs, or rubs. Normal PMI, no JVD. No pulse deficits. Respiratory: Lungs have equal breath sounds bilaterally, clear to auscultation and percussion. No rales, rhonchi or wheezes noted. No increased work of breathing, no retractions or nasal flaring. Abdomen/GI: Soft, non-tender, with normal bowel sounds. No distension or tympany. No guarding or rebound. No evidence of tenderness throughout. Back: No spinal tenderness. No costovertebral tenderness. Full range of motion. Skin: Warm, dry with normal turgor. Normal color with no rashes, no lesions, and no evidence of cellulitis. MS/ Extremity: Pulses equal, no cyanosis. Neurovascular intact. Full, normal range of motion. Neuro: Awake and alert, GCS 15, oriented to person, place, time, and situation. Cranial nerves II-XII grossly intact. Motor strength 5/5 in all extremities. Sensory grossly intact. Cerebellar exam normal. Normal gait. Psych: Awake, alert, with orientation to person, place and time. Behavior, mood, and affect are within normal limits. 05:24 Constitutional: The patient appears in no acute distress, alert, awake, uncomfortable. Vital Signs: 05:05 BP 153 / 106; Pulse 88; Resp 18 S; Temp 97.2; Pulse Ox 100% on R/A; Weight 142.88 kg; iw Height 6 ft. 3 in. (190.50 cm); Pain 10/10; 07:01 BP 156 / 83; Pulse 80; Resp 17; Pulse Ox 99% ; Pain 6/10; rr5 05:05 Body Mass Index 39.37 (142.88 kg, 190.50 cm) iw [place] Coma Score: 08:04 Eye Response: spontaneous(4). Verbal Response: oriented(5). Motor Response: obeys ma2 commands(6). Total: 15. MDM: 06:57 Transition of care: After a detail discussion of the patient's case, care is mh7 transferred to Alia Kumar MD. 08:04 Differential diagnosis: hypoglycemia, otitis, uremia. Differential diagnosis: ma2 hypoglycemia, migraine, sinusitis, vasomotor headache. Data reviewed: vital signs, nurses notes. Counseling: I had a detailed discussion with the patient and/or guardian regarding: the historical points, exam findings, and any diagnostic results supporting the discharge/admit diagnosis, the presence of at least one elevated blood pressure reading (>120/80) during this emergency department visit, the need for outpatient follow up. Response to treatment: the patient's symptoms have markedly improved after treatment. 08:06 Patient medically screened. ma2 Administered Medications: 05:40 Drug: NS 0.9% 1000 ml Route: IV; Rate: 1000 ml; Site: left antecubital; rr5 07:20 Follow up: IV Status: Completed infusion; IV Intake: 1000ml em 05:40 Drug: Reglan (metoCLOPramide) 10 mg Route: IVP; Site: left antecubital; rr5 07:10 Follow up: Response: No adverse reaction; Marked relief of symptoms rr5 05:43 Drug: Benadryl (diphenhydrAMINE) 50 mg Route: IVP; Site: left antecubital; rr5 06:45 Follow up: Response: No adverse reaction; Marked relief of symptoms rr5 05:45 Drug: Decadron - Dexamethasone 10 mg Route: IVP; Site: left antecubital; rr5 06:45 Follow up: Response: No adverse reaction; Marked relief of symptoms rr5 Disposition: 12/12/20 08:06 Discharged to Home. Impression: Migraine. - Condition is Stable. - Discharge Instructions: Migraine Headache. - Prescriptions for Reglan 10 mg Oral Tablet - take 1 tablet by ORAL route every 6 hours take 30 minutes before meals and at bedtime; 20 tablet. - Medication Reconciliation Form, Thank You Letter, Antibiotic Education, Prescription Opioid Use form. - Follow up: Private Physician; When: Tomorrow; Reason: Continuance of care. Signatures: Tristan Pleitez RN RN em Williams, Irene, RN RN Alia Kumar MD MD ma2 Alexandr Jenkins RN RN rr5 Gigi Ramirez MD MD mh7 Corrections: (The following items were deleted from the chart) 08:28 08:06 12/12/2020 08:06 Discharged to Home. Impression: Migraine. Condition is Stable. em Forms are Medication Reconciliation Form, Thank You Letter, Antibiotic Education, Prescription Opioid Use. Follow up: Private Physician; When: Tomorrow; Reason: Continuance of care. ma2
--- NOTE | 2020-12-12 08:07 | ER ---
Nurse's Notes [facility] Name: Terry Akins Sr Age: 40 yrs Sex: Male : 1980 Arrival Date: 12/12/2020 Time: 04:59 Bed 17 Private MD: Diagnosis: Migraine Presentation: 12/12 05:05 Chief complaint: Patient states: migraine since yesterday, +hx of migraines, also iw vomited [employer] and has a lot of nasal congestion today , + chills, no fever, no cough. Coronavirus screen: Client presents with at least one sign or symptom that may indicate coronavirus-19. Ebola Screen: Patient negative for fever greater than or equal to 101.5 degrees Fahrenheit, and additional compatible Ebola Virus Disease symptoms Patient denies exposure to infectious person. Patient denies travel to an Ebola-affected area in the 21 days before illness onset. No symptoms or risks identified at this time. Initial Sepsis Screen: Does the patient meet any 2 criteria? No. Patient's initial sepsis screen is negative. Does the patient have a suspected source of infection? No. Patient's initial sepsis screen is negative. Risk Assessment: Do you want to hurt yourself or someone else? Patient reports no desire to harm self or others. Onset of symptoms was December 11, 2020. 05:05 Method Of Arrival: Ambulatory iw 05:05 Acuity: SARITHA 3 iw Historical: - Allergies: 05:07 No Known Allergies; iw - Home Meds: 05:07 None [Active]; iw - PMHx: 05:07 carpal tunnel; GERD; Hypertension; iw - PSHx: 05:07 Appendectomy; iw - Immunization history:: Adult Immunizations not up to date. - Social history:: Smoking status: Patient denies any tobacco usage or history of. Screenin:20 Abuse screen: Denies threats or abuse. Denies injuries from another. Nutritional rr5 screening: No deficits noted. Tuberculosis screening: No symptoms or risk factors identified. Fall Risk IV access (20 points). Total Moss Fall Scale indicates No Risk (0-24 pts). Assessment: 06:00 General: Appears in no apparent distress. uncomfortable, ill, Behavior is calm, rr5 cooperative. 06:00 Pain: Complains of pain in top of head Pain currently is 10 out of 10 on a pain scale. rr5 Quality of pain is described as aching, Pain began gradually, Is intermittent. Neuro: Level of Consciousness is awake, alert, obeys commands, Oriented to person, place, time, Reports blurred vision headache. Cardiovascular: Capillary refill < 3 seconds Patient's skin is warm and dry. Respiratory: Airway is patent Respiratory effort is even, unlabored, Respiratory pattern is regular, symmetrical. GI: Reports nausea. : No signs and/or symptoms were reported regarding the genitourinary system. EENT: No signs and/or symptoms were reported regarding the EENT system. Derm: Skin is intact, is healthy with good turgor, Skin temperature is warm. Musculoskeletal: Capillary refill < 3 seconds. 06:36 Reassessment: Patient appears in no apparent distress at this time. Patient is alert, rr5 oriented x 3, equal unlabored respirations, skin warm/dry/pink. Patient states feeling better. Patient states symptoms have improved. 07:20 Reassessment: Patient appears in no apparent distress at this time. Patient and/or em family updated on plan of care and expected duration. Pain level reassessed. Patient is alert, oriented x 3, equal unlabored respirations, skin warm/dry/pink. Vital Signs: 05:05 BP 153 / 106; Pulse 88; Resp 18 S; Temp 97.2; Pulse Ox 100% on R/A; Weight 142.88 kg; iw Height 6 ft. 3 in. (190.50 cm); Pain 10/10; 07:01 BP 156 / 83; Pulse 80; Resp 17; Pulse Ox 99% ; Pain 6/10; rr5 05:05 Body Mass Index 39.37 (142.88 kg, 190.50 cm) iw Omar Coma Score: 08:04 Eye Response: spontaneous(4). Verbal Response: oriented(5). Motor Response: obeys ma2 commands(6). Total: 15. ED Course: 04:59 Patient arrived in ED. bp1 05:07 Triage completed. iw 05:07 Arm band placed on. iw 05:08 Gigi Ramirez MD is Attending Physician. mh7 05:30 Patient has correct armband on for positive identification. Bed in low position. Call rr5 light in reach. 05:40 Inserted saline lock: 20 gauge in left antecubital area, using aseptic technique. Blood rr5 collected. 06:57 Alexandr Jenkins, RN is Primary Nurse. rr5 07:09 Primary Nurse role handed off by Alexandr eJnkins RN bd 08:14 No provider procedures requiring assistance completed. em 08:24 IV discontinued, intact, bleeding controlled, No redness/swelling at site. Pressure em dressing applied. Administered Medications: 05:40 Drug: NS 0.9% 1000 ml Route: IV; Rate: 1000 ml; Site: left antecubital; rr5 07:20 Follow up: IV Status: Completed infusion; IV Intake: 1000ml em 05:40 Drug: Reglan (metoCLOPramide) 10 mg Route: IVP; Site: left antecubital; rr5 07:10 Follow up: Response: No adverse reaction; Marked relief of symptoms rr5 05:43 Drug: Benadryl (diphenhydrAMINE) 50 mg Route: IVP; Site: left antecubital; rr5 06:45 Follow up: Response: No adverse reaction; Marked relief of symptoms rr5 05:45 Drug: Decadron - Dexamethasone 10 mg Route: IVP; Site: left antecubital; rr5 06:45 Follow up: Response: No adverse reaction; Marked relief of symptoms rr5 Intake: 07:20 IV: 1000ml; Total: 1000ml. em Outcome: 08:06 Discharge ordered by . verna 08:24 Discharged to home ambulatory, with family. em 08:24 Condition: improved 08:24 Discharge instructions given to patient, family, Instructed on discharge instructions, follow up and referral plans. medication usage, Demonstrated understanding of instructions, follow-up care, medications, Prescriptions given X 1. 08:28 Patient left the ED. em Signatures: Tracie Olivia Edgar, RN RN em Williams, Irene, RN RN iw Alzahri, Mohammad, MD MD ma2 Alexandr Jenkins RN RN rr5 Yara Reddy Maurice, MD MD mh7
[2020-12-12 08:35] VITALS: TEMP 97.2
[2020-12-12 08:36] VITALS: BP 156/83; O2SAT 99
== END 2020-12-12 08:28 | disposition home or self-care (01) ==
LOC: ER 04:57
DX: G43.909 Migraine, unspecified, not intractable, without status migrainosus (principal); I10 Essential (primary) hypertension
CPT/HCPCS: J2765; J1200; J1100; J7030; 96361; 96374; 96375; 99284

== ENCOUNTER 2020-12-20 18:40 | Emergency (ER) | payer OTHER ==
--- OUTSIDE RECORDS SUMMARY | 2020-12-20 18:43 | XMS REPORT | Continuity of Care Document ---
:1980 Author Organization [facility] t Address [address] [place] [address] Care Team Providers Name Role Phone Sintia Hooks Attending Clinician Doctor Unassigned, Name Attending Clinician Unavailable MONAE Attending Clinician Unavailable BENJA Attending Clinician Unavailable MARCIAL Attending Clinician Unavailable TAMMY Attending Clinician Unavailable KESHIA Attending Clinician Unavailable GONZALEZ Attending Clinician Unavailable BRADLEY Attending Clinician Unavailable Problems Condition Condition Condition Status Onset Resolution Last Treating Co mments Source Name Details Category Date Date Treatment Clinician Date Cubital Cubital Problem Active Univers tunnel tunnel [...] sleep e sleep ity of apnea, apnea, [place] adult adult Physici ans Migraine Migraine Problem [...] cerebrovascular [place] [facility] accident (CVA) Social History Smoking Status Start Date Stop Date Source Former smoker [facility] Physicians Medications Ordered Filled Start Stop Current Ordering [...] onset of ity of MG/0.5ML MG/0.5ML 00:00: M.DClemente the [place] Subcutaneou Subcutaneou 00 cluster Physici [...] [place] as needed [facility] Losartan Losartan Yes Norah [address] Potassium-H Potassium-H [place] [facility] Hydrocodone Hydrocodone Yes Norah [address] -Acetaminop -Acetaminop [place] as needed [facility] hen hen [facility] l [facility] Adderall XR Adderall XR Yes Norah [address] [facility] [place] in the [facility] - morning [facility] Omeprazole Omeprazole Yes Norah [address] [facility] [place] 30 minutes [facility] - before [facility] morning l meal [facility] Dicyclomine Dicyclomine Yes Norah [address] HCl HCl [place] [facility] Immunizations Ordered Immunization Filled Immunization Date Status Commen ts Source Name Name Fluzone Quadrivalent 2018-06-03 Completed Univ ersity of 0.5 ML Intramuscular 14:35:00 Moshe jansen Physicians Suspension Vital Signs Vital Name Observation Time Observation Value Comments Source BP Systolic 2018-10-02 155 mm[Hg] Location: [facility] 15:26:00 Position: [place] Physician s Sitting BP Diastolic 2018-10-02 88 mm[Hg] Location: [facility] 15:26:00 Position: [place] Physician s Sitting Height 2018-10-02 75 [in_us] University 15:26:00 [place] [facility] s Weight 2018-10-02 302 [lb_av] University of 15::00 [place] [facility] s Body Mass Index 2018-10-02 37.75 kg/m2 University o f Calculated 15::00 [place] Physician s Temperature 2018-10-02 98 [degF] Method: Oral [facility] of 15::00 [place] [facility] s Heart Rate 2018-10-02 63 /min Location: [facility] 15::00 Apical; [place] Physician s BP Systolic 2018-09-25 154 mm[Hg] Location: [facility]; [facility] 10::00 Position: [place] Physician s Sitting BP Diastolic 2018-09-25 98 mm[Hg] Location: [facility]; [facility] 10::00 Position: [place] Physician s Sitting Heart Rate 2018-09-25 70 /min Quality: Normal University o f 10::00 [place] [facility]ician s BP Systolic 2018-09-25 169 mm[Hg] Location: [facility] ::00 Position: [place] Physician s Sitting BP Diastolic 2018-09-25 65 mm[Hg] Location: [facility] ::00 Position: [place] Physician s Sitting Heart Rate 2018-09-25 67 /min Quality: Normal University o f 10:25:00 [place] Physician s Height 2018-09-25 75 [in_us] University of 10:25:00 [place] Physician s Weight 2018-09-25 295 [lb_av] University of 10:25:00 [place] Physician s Body Mass Index 2018-09-25 36.87 kg/m2 University o f Calculated 10:25:00 [place] Physician s Temperature 2018-09-25 98.3 [degF] Method: Oral University of 10:25:00 [place] Physician s O2 SAT 2018-09-25 99 % University of 10:25:00 [place] Physician s BP Systolic 2018-06-03 136 mm[Hg] Location: [facility] 14:09:00 Position: [place] Physician s Sitting BP Diastolic 2018-06-03 75 mm[Hg] Location: [facility] 14:09:00 Position: [place] Physician s Sitting Height 2018-06-03 75 [in_us] University of 14:09:00 [place] [facility] s Weight 2018-06-03 317 [lb_av] [facility] of 14:09:00 [place] [facility] s Body Mass Index 2018-06-03 39.62 kg/m2 University o f Calculated 14:09:00 [place] [facility] s Temperature 2018-06-03 97.9 [degF] Method: Oral [facility] 14:09:00 [place] [facility] Heart Rate 2018-06-03 74 /min [facility] 14:09:00 [place] [facility] s Procedures Procedure Date / Time Performing Clinician Source Performed [U] XRAY KNEE 4 OR MORE 2018-07-24 00:00:00 [facility] VWS RIGHT [id number] Physicians Emg/Ncv 2018-06-20 00:00:00 [place] o f [place] [facility] Sleep Lab - Sleep 2018-06-03 00:00:00 [facility] Study Split Night Physicians History of Cubital tunnel [facility] repair Physicians History of Appendectomy [facility] Physicians History of Wrist surgery [facility] Physicians History of [facility] [place] Hemorrhoidectomy Physicians Plan of Care Planned Activity Planned Date Details Comments Source Diagnostic Test 2018-06-20 Emg/Ncv [code = [facility] Pending 00:00:00 Emg/Ncv] Physicians Diagnostic Test 2018-06-20 Emg/Ncv [code = [facility] Pending 00:00:00 Emg/Ncv] Physicians Encounters Start End Encounter Admission Attending Care Care Encounter Source Date/Time Date/Time Type Type Clinicians Facility Department ID 2020-11-21 2020-11-21 Emergency Blaire Guevara [facility] [id number] 16:01:00 20:48:00 Sintia Armstrong [id number] [place] [id number] [place] [id number] 2020-11-21 2020-11-21 Orders Doctor AICHA [id number] 00:00:00 00:00:00 Only Unassigned, ABDULKADIR [id number] [place] [id number] [id number] 2020-07-20 2020-07-20 Outpatient STLMLC STLMLC [id number] [facility] 00:00:00 00:00:00 [facility] 2020-07-20 2020-07-20 Orders Doctor AICHA [id number] 00:00:00 00:00:00 Only Unassigned, ABDULKADIR [id number] [place] [facility] [id number] 2020-07-12 2020-07-12 [facility] [id number]00 [facility] 2020-05-23 2020-05-23 [facility] [id number] [facility] 00[facility]00 [facility] Outpati ent Clinics 2020-02-24 2020-02-24 [facility] [id number] 14:42:00 14:42:00 t [place] [facility] [place] [facility] 2020-02-22 2020-02-22 [facility] [id number] 13:51:00 13:51:00 t [facility] 2019-12-10 2019-12-10 [facility] [id number] 15:39:00 15:39:00 t [facility] 2019-12-08 2019-12-08 [facility] [id number] 13:40:00 13:40:00 [facility] 2019-12-07 2019-12-07 [facility] [id number] 12:05:00 12:05:00 t [facility] 2019-11-16 2019-11-16 [facility] [id number] 11:00:00 11:00:00 t [facility] a Clinic of Clinic [facility] 2019-10-21 2019-10-21 Emergency Blaire Guevara [facility] [id number] 11:24:16 14:51:00 Sintia Armstrong [id number] [place] [id number] 2019-09-29 2019-09-29 [facility] [id number] 09:21:00 09:21:00 t [facility] ent Clinics 2019-09-21 2019-09-21 [facility] [id number] 14:00:00 14:00:00 t [facility] Clinic [facility] ent Clinics 2019-03-13 2019-03-13 Appointmen MONAE [facility] [id number] Univers 09:00:00 09:00:00 t; Lesa RODRIGUEZ y Mirna Ho Physici M.D. [facility] 2018-10-02 2018-10-02 Appointmen EUNICE YOUSIF [facility] [id number] Univers 15:00:00 15:00:00 t; Asher JONES M.D. [place] Val[place] JONES M.D. [facility] 2018-09-25 2018-09-25 Appointmen EUNICE CEJA [facility] [id number] Univers 10:30:00 10:30:00 t; BRANT CEJA NP Health and Luz NP Wellness [facility] Valery Scott [facility] 2018-09-22 2018-09-22 Appointmen EUNICE YOUSIF [facility] [id number] Univers 15:30:00 15:30:00 t; Asher JONES M.D. [place] Valery JONES M.D. [facility] 2018-08-22 2018-08-22 Appointmen EUNICE MUNOZ [facility] [id number] Univers 09:30:00 09:30:00 t; Lesa BRYANT y of Mirna MUNOZ Physici M.D. ans 2018-07-29 2018-07-29 AppointEUNICE Paul [facility] [id number] Univers 14:30:00 14:30:00 t; Lesa BRYANT y of Mirna MUNOZ Physici M.D. ans 2018-07-25 2018-07-25 [id number] Univers 10:30:00 10:30:00 t; Lesa BRITT at [place], [place] Valery BRITT M.D. ans 2018-07-22 2018-07-22 [facility] [id number] Univers 11:15:00 11:15:00 t; Lesa BRYANT [facility] Orthopedics Norberto as Valery BRYANT M.D. ans 2018-07-15 2018-07-15 [facility] [id number] Univers 10:30:00 10:30:00 t; Lesa BRYANT [facility], Orthopedics Norberto as Valery BRYANT M.D. ans 2018-07-09 2018-07-09 [facility] [id number] Univers 13:00:00 13:00:00 t; Lesa BRYANT [place], [place] Valery BRYANT M.D. ans 2018-06-30 2018-06-30 [facility] [id number] Univers 10:15:00 10:15:00 t; Lesa BRYANT [facility], Orthopedics Norberto as Valery BRYANT M.D. ans 2018-06-20 2018-06-20 [facility] [id number] Univers 13:40:00 13:40:00 t; SH[facility], Orthopedics T su MONROE NP Physi ci ans 2018-06-19 2018-06-19 [facility] [id number] Univers 08:15:00 08:15:00 t; SERJIO HUERTA D.O. ity of [facility] Mirna Romo Physicsp ans 2018-06-17 2018-06-17 [facility] [id number] Univers 15:45:00 15:45:00 t; Lesa BRYANT [facility], Orthopedics Norberto as Valery BRYANT M.D. ans 2018-06-03 2018-06-03 [facility] EUNICE HUERTA [place] [id number] Univers 13:45:00 13:45:00 t; [facility] ans Results Test Description Test Time Test Comments Results Result Sour e Comments [U] XRAY ELBOW 2 2018-06-17 Images [facility] RIGHT [id number] 15:57:00 acquired, not [place] reported on Physicians this accession number. [U] XRAY WRIST 2018-06-17 Images [facility] 3 [facility] RIGHT 15:57:00 acquired, not [place] [id number] reported on Physicians this accession number.
[2020-12-20] MEDS ORDERED: KETOROLAC 30 MG/ML INJ ONE (20:21)
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
[2020-12-20] MEDS ORDERED: OXYMETAZOLINE HCL 0.05% 15ML NAS ONE (21:27)
[2020-12-20 21:31] VITALS: TEMP 98.4; O2SAT 98
[2020-12-20 21:33] VITALS: BP 155/85
== END 2020-12-20 21:26 | disposition home or self-care (01) ==
LOC: ER 18:40
DX: S00.83XA Contusion of other part of head, initial encounter (principal); Y04.8XXA Assault by other bodily force, initial encounter; I10 Essential (primary) hypertension
CPT/HCPCS: 70450; 70486; 76377; 96372; 99284

== ENCOUNTER 2021-01-02 08:24 | Emergency (ER) | payer OTHER ==
--- OUTSIDE RECORDS SUMMARY | 2021-01-02 08:27 | XMS REPORT | Continuity of Care Document ---
:1980 Author Organization [facility] t Address [address] [place] [address] Care Team Providers Name Role Phone Asked, [...] Clinician Date Syncope Syncope Disease Active 2017-08 [place] 0-14 Methodi 00:00: st 00 Cubital Cubital [...] Univers essential essential ity of HTN HTN [place] Phys[facility] ans Obstructiv Obstructiv Problem Active U nivers e sleep e sleep ity of apnea, apnea, [place] adult adult Physici ans Migraine Migraine Problem Active Unive rs headache headache ity of [place] Physici ans Chronic Chronic Problem Active Univers GERD GERD ity of [place] Physici ans History of History of Problem Resolve Univers arthritis arthritis d ity of [place] Physici ans History of History of Problem [...] Uni versity of Family Member malignant neoplasm Norbet[place] as Physicians Unknown Family history of Family History Uni versity of Family Member cerebrovascular [place] [facility] accident (CVA) Social History Social Habit Start Date Stop Date Quantity Comments Source Tobacco use and 2018-05-25 2018-05-25 Never used [facility] ethodist exposure 00:00:00 00:00:00 Alcohol intake 2018-05-25 2018-05-[address] [facility] thodist 00:00:00 00:00:00 non-drinker of alcohol (finding) History of 2018-04-[address] [facility] thodist tobacco use 00:00:00 Sex Ass[birth year] At [birth year] [facility] ethodist 00:00:00 00:00:00 Smoking Status Start Date Stop Date Source Former smoker 2018-05-25 00:00:00 2018-05-25 00:00:00 [place] [facility] Medications Ordered Filled Start Stop Current Ordering Indication Dosage Frequency Signature Comments Components Source Medication Medication Date Date Medication? Clinician (SIG) Name Name Marysol Gregg 0 2020- No Norah [address] [facility] [address] e HCl e HCl 4-28 05-03 [place] [facility] needed [facility] 00:[facility]: 00:00 for n/v [facility] 00 :00 [facility] SUMAtriptan SUMAtriptan Yes POURAN inject PRN Univers Succinate 6 Succinate 6 2-21 BENJA onset of ity of MG/0.5ML MG/0.5ML 00:00: M.D. the [place] Subcutaneou Subcutaneou 00 cluster Physici s Solution [...] [place] as needed [facility] Losartan Losartan Yes Norah [address] Potassium-H Potassium-H [place] [facility] CTZ CTZ [facility] Hydrocodone Hydrocodone Yes Norah [address] -Acetaminop -Acetaminop [place] as needed [facility] Adderall XR Adderall XR Yes Norah [address] [facility] [place] in the [facility] Omeprazole Omeprazole Yes Norah [address] [facility] [place] 30 minutes [facility] - before [facility]oria morning l meal [facility] Dicyclomine Dicyclomine Yes Norah [address] HCl HCl [place] [facility] Immunizations Ordered Immunization Filled Immunization Date Status Commen ts Source Name Name Taryn Stephen 2018-06-03 Completed Univ ersity of 0.5 ML Intramuscular 14:35:00 [place] Susp[place] Vital Signs Vital Name Observation Time Observation Value Comments Source BP Systolic 2018-10-02 155 mm[Hg] Location: [facility] ::00 Position: [place] Physician s Sitting BP Diastolic 2018-10-02 88 mm[Hg] Location: [facility] ::00 Position: [place] Phys[facility] s Sitting Height 2018-10-02 75 [in_us] [facility] ::00 [place] [facility] s Weight 2018-10-02 302 [lb_av] [facility] ::00 [place] [facility] s Body Mass Index 2018-10-02 37.75 kg/m2 University o f Calculated 15:26:00 [place] Physician s Temperature 2018-10-02 98 [degF] Method: Oral [facility] 15::00 [place] Phys[facility] s Heart Rate 2018-10-02 63 /min Location: [facility] ::00 Apical; [place] Physician s BP Systolic 2018-09-25 154 mm[Hg] Location: [facility] ::00 Position: [place] Physician s Sitting BP Diastolic 2018-09-25 98 mm[Hg] Location: [facility] ::00 Position: [place] Physician s Sitting Heart Rate 2018-09-25 70 /min Quality: Normal University o f 10:26:00 [place] Physician s BP Systolic 2018-09-25 169 mm[Hg] Location: [facility] 10:25:00 Position: [place] Physician s Sitting BP Diastolic 2018-09-25 65 mm[Hg] Location: [facility] 10:25:00 Position: [place] Physician s Sitting Heart Rate 2018-09-25 67 /min Quality: Normal University o f 10:25:00 [place] Phys[facility] s Height 2018-09-25 75 [in_us] [facility] 10:25:00 [place] [facility] s Weight 2018-09-25 295 [lb_av] Essie of 10:25:00 [place] [facility] s Body Mass Index 2018-09-25 36.87 kg/m2 University o f Calculated 10:25:00 [place] Phys[facility] s Temperature 2018-09-25 98.3 [degF] Method: Oral University 10:25:00 [place] [facility] s O2 SAT 2018-09-25 99 % University 10:25:00 [place] [facility] s BP Systolic 2018-06-03 136 mm[Hg] Location: [facility] :09:00 Position: [place] Physician s Sitting BP Diastolic 2018-06-03 75 mm[Hg] Location: [facility] :09:00 Position: [place] Physician s Sitting Height 2018-06-03 75 [in_us] University 14:09:00 [place] [facility] s Weight 2018-06-03 317 [lb_av] [facility] :: [place] [facility] s Body Mass Index 2018-06-03 39.62 kg/m2 University o f Calculated 14:09:00 [place] [facility] s Temperature 2018-06-03 97.9 [degF] Method: Oral [facility] ::00 [place] [facility] s Heart Rate 2018-06-03 74 /min [facility] ::00 [place] Physician s Procedures Procedure Date / Time Performing Clinician Source Performed [U] XRAY KNEE 4 OR MORE 2018-07-24 00:00:00 [facility] VWS RIGHT [id number] Physicians Emg/Ncv 2018-06-20 00:00:00 Essie o f [place] [facility] Sleep Lab - Sleep 2018-06-03 00:00:00 [facility] Study Split Night Physicians History of Cubital tunnel [facility] repair Physicians History of Appendectomy [facility] Physicians History of Wrist surgery [facility] Physicians History of [facility] xa Hemorrhoidectomy Physicians Plan of Care Planned Activity Planned Date Details Comments Source Future Scheduled 2021-03-12 INFLUENZA VACCINE [place] [facility] Test 00:00:00 [code = INFLUENZA VACCINE] Diagnostic Test 2018-06-20 Emg/Ncv [code = [facility] [place] Pending 00:00:00 Emg/Ncv] Physicians Diagnostic Test 2018-06-20 Emg/Ncv [code = [facility] [place] Pending 00:00:00 Emg/Ncv] Physicians Future Scheduled 1998 Hepatitis C Ulices Damon hodist Test 00:00:00 screening (procedure) [code = 258054449] Future Scheduled 1992 COVID-19 VACCINE [place] [facility] Test 00:00:00 (1) [code = COVID-19 VACCINE (1)] Encounters Start End Encounter Admission Attending Care Care Encounter Source Date/Time Date/Time Type Type Clinicians Facility Department ID 2020-11-21 2020-11-21 Emergency Blaire Guevara [facility] [id number] 16:01:00 20:48:00 Sintia Armstrong [id number] [place] [id number] [place] [id number] 2020-11-21 2020-11-21 Orders Doctor AICHA [id number] 00:00:00 00:00:00 Only UnassignedABDULKADIR [id number] [id number] 2020-07-20 2020-07-20 Outpatient [facility] [id number] [facility] 2020-07-20 2020-07-20 Orders Doctor AICHA [id number] 00:00:00 00:00:00 Only UnassignedABDULKADIR [id number] 2020-07-12 2020-07-12 Outpatient [facility] [id number] [facility] 2020-05-23 2020-05-23 Out[facility] [id number] [facility] 2020-02-24 2020-02-24 [facility] [id number] 14:42:00 14:42:00 t [employer] [facility] Lentigen [facility] Family Medicine l Medicine Outpati ent Clinics 2020-02-22 2020-02-22 [facility] [id number] 13:51:00 13:51:00 t [facility] [employer] [place] [employer] [facility] Family Medicine l Medicine Outpati ent Clinics 2019-12-10 2019-12-10 [facility] [id number] 15:39:00 15:39:00 t [facility] ent Clinics 2019-12-08 2019-12-08 [facility] [id number] 13:40:00 13:40:00 t [facility] ent Clinics 2019-12-07 2019-12-07 [facility] [id number] 12:05:00 12:05:00 t [facility] ent Clinics 2019-11-16 2019-11-16 [facility] [id number] 11:00:00 11:00:00 t [facility] 2019-10-21 2019-10-21 Emergency PaolaBlaire [facility] [id number] 11:24:16 14:51:00 [facility] [id number] [place] [id number] [place] [id number] 2019-09-29 2019-09-29 [facility] [id number] 09:21:00 09:21:00 t [facility] Clin[facility] 2019-09-21 2019-09-21 [facility] [id number] 14:00:00 14:00:00 t [facility] 2019-03-13 2019-03-13 Appointmen EUNICE LICONA [id number] Univers 09:00:00 09:00:00 t; Lesa RODRIGUEZ [place] NANCY, Physici M.D. ans 2018-10-02 2018-10-02 Appointmen EUNICE YOUSIFa [id number] Univers 15:00:00 15:00:00 t; Asher JONES M.D. [place] POURAN, Physici M.D. ans 2018-09-25 2018-09-25 Appointmen MARCIAL [facility] [id number] Univers 10:30:00 10:30:00 t; BRANT CEJA, SHANE Health and ity stephen GUO, [employer] [facility] Valery Scott ans 2018-09-22 2018-09-22 Appointmen EUNICE YOUSIF [facility] [id number] Univers 15:30:00 15:30:00 t; ROBERT [facility] sadiey stephen YOUSIF M.D. [place] Valery JONES M.D. ans 2018-08-22 2018-08-22 [facility] [id number] Univers 09:30:00 09:30:00 t; Lesa BRYANT y of [place], [place] Valery BRYANT M.D. ans 2018-07-29 2018-07-29 Appointmen T[facility] [id number] Univers 14:30:00 14:30:00 t; Lesa BRYANT y of [place], [place] Valery BRYANT M.D. ans 2018-07-25 2018-07-25 Appointmen [facility] Orthopedics [id number] Univers 10:30:00 10:30:00 t; Lesa BRITT at [place], [place] Valery BRITT M.D. ans 2018-07-22 2018-07-22 Appointmen TAMMY [facility] [id number] Univers 11:15:00 11:15:00 t; Lesa [facility]ANT [facility] Norberto as Valery BRYANT M.D. ans 2018-07-15 2018-07-15 [facility] [id number] Univers 10:30:00 10:30:00 t; Lesa [facility]ANT [facility] Norberto as Valery BRYANT M.D. ans 2018-07-09 2018-07-09 Appointmen T[facility] [id number] Univers 13:00:00 13:00:00 t; Lesa BRYANT y of [place], [place] Valery BRYANT M.D. ans 2018-06-30 2018-06-30 [facility] [id number] Univers 10:15:00 10:15:00 t; Lesa BRYANT [facility], Orthopedics Norberto as Valery BRYANT M.D. ans 2018-06-20 2018-06-20 [facility] [id number] Univers 13:40:00 13:40:00 t; SHANE MONROE [facility] ty of ROTH, Orthopedics [place] SHANE MONROE Physi ci ans 2018-06-19 2018-06-19 Appointmen [facility] [id number] Univers 08:15:00 08:15:00 t; SERJIO HUERTA D.O. [place], [place] Tricia.OClemente Physicsp ans 2018-06-17 2018-06-17 Appoint[facility] [id number] Univers 15:45:00 15:45:00 t; Lesa BRYANT [facility], Orthopedics Norberto as Valery BRYANT M.D. ans 2018-06-03 2018-06-03 Appointmen [facility] [id number] Univers 13:45:00 13:45:00 t; SERJIO HUERTA D.O. [facility] [place], [place] D.OClemente Physici ans Results Test Description Test Time Test Comments Results Result Sour e Comments [U] XRAY ELBOW 2 2018-06-17 Images Universi ty of VWS RIGHT [id number] 15:57:00 acquired, not [place] reported on Physicians this accession number. [U] XRAY WRIST 2018-06-17 Images University of MIN 3 VWS RIGHT 15:57:00 acquired, not [place] [id number] reported on Physicians this accession number.
--- NOTE | 2021-01-02 09:02 | RAD REPORT ---
EXAM DESCRIPTION: CT - Head Brain Wo Cont - 01/02/2021 8:49 am CLINICAL HISTORY: Dizziness;Headache COMPARISON: Facial Bones W/ Mpr dated 12/20/2020 TECHNIQUE: Axial 5 mm thick images of the head were obtained without IV contrast. All CT scans are performed using dose optimization technique as appropriate and may include automated exposure control or mA/KV adjustment according to patient size. FINDINGS: No intracranial hemorrhage, mass, edema or shift of mid-line structures. No acute infarcti on changes seen. No abnormal extra-axial fluid collections. Ventricles are normal. Mastoid air cells and visualized portions of the paranasal sinuses are clear. Maxillary sinuses are o nly partially imaged. Likelihood of a significant finding along the floor of each sinus is doubtful. No acute bony findings. IMPRESSION: Negative non-contrast CT head examination.
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
[2021-01-02] MEDS ORDERED: HYDROCODONE/APAP 10/325 TAB ONE (10:47)
[2021-01-02] MEDS ORDERED: KETOROLAC 30 MG/ML INJ ONE ×2 (10:47→11:04)
[2021-01-02] MEDS ORDERED: AMOX/K CLAV 875 MG TAB ONE (10:47)
[2021-01-02] MEDS ORDERED: HYDROMORPHONE HCL 2 MG/ML inj ONE (11:04)
[2021-01-02] MEDS ORDERED: PROMETHAZINE INJ 25 MG/ML AMP ONE (11:04)
[2021-01-02 11:08] VITALS: TEMP 97.1; O2SAT 99
[2021-01-02 11:11] VITALS: BP 181/111
== END 2021-01-02 11:03 | disposition home or self-care (01) ==
LOC: ER 08:24
DX: S02.2XXA Fracture of nasal bones, initial encounter for closed fracture (principal); Y04.2XXA Assault by strike against or bumped into by another person, initial encounter; I10 Essential (primary) hypertension
CPT/HCPCS: 70450; 70486; 76377; J2550; J1170; 96372; 99283

== ENCOUNTER 2021-01-02 20:40 | Emergency (ER) | payer OTHER ==
--- OUTSIDE RECORDS SUMMARY | 2021-01-02 20:43 | XMS REPORT | Continuity of Care Document ---
:[address] [facility] t Address [address] [place] [address] Care Team Providers Name Role Phone Asked, [...] Clinician Date Syncope Syncope Disease Active 2017-08 Baker 0-14 Methodi 00:00: st 00 Cubital Cubital [...] Univers essential essential ity of HTN HTN [place] Physici ans Obstructiv Obstructiv Problem Active U nivers e sleep e sleep ity of apnea, apnea, [place] adult adult Physici ans Migraine Migraine Problem Active Unive rs headache headache ity of [place] Physici ans Chronic Chronic Problem Active Univers GERD GERD ity of [place] Physici ans History of History of Problem Resolve Univers arthritis arthritis d ity of [place] Physici ans History of History of Problem [...] Tobacco use and 2018-05-25 2018-05-25 Never used [facility] ethodist exposure 00:00:00 00:00:00 Alcohol intake 2018-05-25 2018-05-25 Current [facility] thodist 00:00:00 00:00:00 non-drinker of alcohol (finding) History of 2018-04-25 Current smoker [facility] thodist tobacco use 00:00:00 Sex Ass[birth year] At [birth year] [facility] ethodist 00:00:00 00:00:00 Smoking Status Start Date Stop Date Source Former smoker 2018-05-25 00:00:00 2018-05-25 00:00:00 [facility] Medications Ordered Filled Start Stop Current Ordering Indication Dosage Frequency Signature Comments Components Source Medication Medication Date Date Medication? Clinician (SIG) Name Name Marysol Gregg 0 2020- No Norah [address] [facility] e HCl e HCl 4-28 05-03 [place] [facility] needed [facility] 00[facility]: [facility]:00 for n/v [facility] 00 :00 l [facility] SUMAtriptan SUMAtriptan Yes POURAN inject PRN Univers Succinate 6 Succinate 6 2-21 BENJA onset of ity of MG/0.5ML MG/0.5ML 00:00: M.D. the [place] Subcutaneou Subcutaneou 00 cluster Physici s Solution [...] [place] as needed [facility] Losartan Losartan Yes Norah [address] Potassium-H Potassium-H [place] [facility] CTZ CTZ [facility] Hydrocodone Hydrocodone Yes Norah [address] [facility] -Acetaminop -Acetaminop [place] as needed [facility] Adderall XR Adderall XR Yes Norah [address] [facility] [place] in the [facility] - morning [facility] Omeprazole Omeprazole Yes Norah [address] [facility] [place] 30 minutes [facility] - before Memoria morning l meal [facility] Dicyclomine Dicyclomine Yes Norah [address] [facility] HCl HCl [place] [facility] Immunizations Ordered Immunization Filled Immunization Date Status Commen ts Source Name Name Taryn Stephen 2018-06-03 Completed Univ ersity of 0.5 [place] Intramuscular 14:35:00 [place] Sus[place] Vital Signs Vital Name Observation Time Observation Value Comments Source BP Systolic 2018-10-02 155 mm[Hg] Location: [facility] ::00 Position: [place] Physician s Sitting BP Diastolic 2018-10-02 88 mm[Hg] Location: [facility] ::00 Position: [place] Physician s Sitting Height 2018-10-02 75 [in_us] [facility] ::00 [place] Physician s Weight 2018-10-02 302 [lb_av] [facility] ::00 [place] Physician s Body Mass Index 2018-10-02 37.75 kg/m2 University o f Calculated 15:26:00 [place] Physician s Temperature 2018-10-02 98 [degF] Method: Oral [facility] 15::00 [place] Physician s Heart Rate 2018-10-02 63 /min Location: [facility] ::00 Apical; [place] Physician s BP Systolic 2018-09-25 154 mm[Hg] Location: [facility] ::00 Position: [place] Physician s Sitting BP Diastolic 2018-09-25 98 mm[Hg] Location: [facility] ::00 Position: [place] Physician s Sitting Heart Rate 2018-09-25 70 /min Quality: Normal University o f 10:26:00 [place] Physician s BP Systolic 2018-09-25 169 mm[Hg] Location: [facility] 10:25:00 Position: [place] Physician s Sitting BP Diastolic 2018-09-25 65 mm[Hg] Location: [facility] 10:25:00 Position: [place] Physician s Sitting Heart Rate 2018-09-25 67 /min Quality: Normal University o f 10:25:00 [place] Physician s Height 2018-09-25 75 [in_us] [facility] 10:25:00 [place] Physician s Weight 2018-09-25 295 [lb_av] [place] [facility] 10:25:00 [place] Physician s Body Mass Index 2018-09-25 36.87 kg/m2 University o f Calculated 10:25:00 [place] Physician s Temperature 2018-09-25 98.3 [degF] Method: Oral University 10:25:00 [place] Physician s O2 SAT 2018-09-25 99 % University 10:25:00 [place] Physician s BP Systolic 2018-06-03 136 mm[Hg] Location: [facility] :09:00 Position: [place] Physician s Sitting BP Diastolic 2018-06-03 75 mm[Hg] Location: [facility] :09:00 Position: [place] Physician s Sitting Height 2018-06-03 75 [in_us] University 14:09:00 [place] Physician s Weight 2018-06-03 317 [lb_av] [facility] :: [place] Physician s Body Mass Index 2018-06-03 39.62 kg/m2 University o f Calculated 14:09:00 [place] Physician s Temperature 2018-06-03 97.9 [degF] Method: Oral [facility] ::00 [place] Physician s Heart Rate 2018-06-03 74 /min [facility] ::00 [place] Physician s Procedures Procedure Date / Time Performing Clinician Source Performed [U] XRAY KNEE 4 OR MORE 2018-07-24 00:00:00 [facility] VWS RIGHT [id number] Physicians Emg/Ncv 2018-06-20 00:00:00 [place] [facility] f [place] Physicians [facility] Sleep Lab - Sleep 2018-06-03 00:00:00 [facility] Study Split Night Physicians History of Cubital tunnel [facility] repair Physicians History of Appendectomy [facility] Physicians History of Wrist surgery [facility] Physicians History of [facility] xa Hemorrhoidectomy Physicians Plan of Care Planned Activity Planned Date Details Comments Source Future Scheduled 2021-03-12 INFLUENZA VACCINE [place] [facility] Test 00:00:00 [code = INFLUENZA VACCINE] Diagnostic Test 2018-06-20 Emg/Ncv [code = [facility] [place] Pending 00:00:00 Emg/Ncv] Physicians Diagnostic Test 2018-06-20 Emg/Ncv [code = [facility] [place] Pending 00:00:00 Emg/Ncv] Physicians Future Scheduled 1998 Hepatitis C Ulices [facility] hodist Test 00:00:00 screening (procedure) [code = 931723113] Future Scheduled 1992 COVID-19 VACCINE [facility] Test 00:00:00 (1) [code = COVID-19 VACCINE (1)] Encounters Start End Encounter Admission Attending Care Care Encounter Source Date/Time Date/Time Type Type Clinicians Facility Department ID 2020-11-21 2020-11-21 Emergency Blaire Guevara [facility] [id number] 16:01:00 20:48:00 Sintia Armstrong [id number] [place] [id number] [place] [id number] 2020-11-21 2020-11-21 Orders Doctor AICHA [id number] 00:00:00 00:00:00 Only UnassignedABDULKADIR [id number] [id number] 2020-07-20 2020-07-[facility] [id number] [facility] 2020-07-20 2020-07-20 Orders Doctor AICHA [id number] 00:00:00 00:00:00 Only UnassignedABDULKADIR [id number] 2020-07-12 2020-07-12 [facility] [id number] [facility] 2020-05-23 2020-05-[address] [facility] [id number] [facility] 2020-02-24 2020-02-24 [facility] [id number] 14:42:00 14:42:00 [place] [facility] Family Medicine l Medicine Outpati ent Clinics 2020-02-22 2020-02-22 [facility] [id number] 13:51:00 13:51:00 t [facility] RETAIL PRO Ollie Zase [facility] Family Medicine l Medicine Outpati ent Clinics 2019-12-10 2019-12-10 [facility] [id number] 15:39:00 15:39:00 t [facility] ent Clinics 2019-12-08 2019-12-08 [facility] [id number] 13:40:00 13:40:00 t [facility] ent Clinics 2019-12-07 2019-12-07 [facility] [id number] 12:05:00 12:05:00 t [facility] ent Clinics 2019-11-16 2019-11-16 [facility] [id number] 11:00:00 11:00:00 [facility] 2019-10-21 2019-10-[address] [facility] [id number] 11:24:16 14:51:00 [facility] [id number] [place] [id number] [place] [id number] 2019-09-29 2019-09-29 [facility] [id number] 09:21:00 09:21:00 t [facility] 2019-09-21 2019-09-21 [facility] [id number] 14:00:00 14:00:00 t [facility] 2019-03-13 2019-03-13 Appointmen EUNICE LICONA [id number] Univers 09:00:00 09:00:00 t; Lesa RODRIGUEZ [place] NANCY, Physici M.D. ans 2018-10-02 2018-10-02 Appointmen EUNICE YOUSIFa [id number] Univers 15:00:00 15:00:00 t; Asher JONES M.D. [place] POURAN, Physici M.D. ans 2018-09-25 2018-09-25 Appointmen MARCIAL [facility] [id number] Univers 10:30:00 10:30:00 t; BRANT CEJA, SHANE [facility] ity stephen GUO, DEVELOPER SUPPORT ENGINEER Wellness [facility] Valery Scott ans 2018-09-22 2018-09-22 Appointmen EUNICE YOUSIF [facility] [id number] Univers 15:30:00 15:30:00 t; ROBERT [facility] sadiey stephen YOUSIF M.D. [place] Valery JONES M.D. ans 2018-08-22 2018-08-22 [facility] [id number] Univers 09:30:00 09:30:00 t; Lesa BRYANT [facility] [place], [place] Valery BRYANT M.D. ans 2018-07-29 2018-07-29 Appointmen [facility] [id number] Univers 14:30:00 14:30:00 t; Lesa BRYANT y of [place], [place] Valery BRYANT M.D. ans 2018-07-25 2018-07-25 Appointmen [facility] [id number] Univers 10:30:00 10:30:00 t; Lesa BRITT at [place], [place] Valery BRITT M.D. ans 2018-07-22 2018-07-22 Appointmen [facility] [id number] Univers 11:15:00 11:15:00 t; Lesa BRYANT [facility], Orthopedics Nor[place]to as Valery BRYANT M.D. ans 2018-07-15 2018-07-15 [facility] [id number] Univers 10:30:00 10:30:00 t; Lesa BRYANT [facility], Orthopedics Norberto as Valery BRYANT M.D. ans 2018-07-09 2018-07-09 Appointmen [facility] [id number] Univers 13:00:00 13:00:00 t; Lesa BRYANT y [facility] [place], [place] Valery BRYANT M.D. ans 2018-06-30 2018-06-30 [facility] [id number] Univers 10:15:00 10:15:00 t; Lesa BRYANT [facility], Orthopedics Norberto as Valery BRYANT M.D. ans 2018-06-20 2018-06-20 [facility] [id number] Univers 13:40:00 13:40:00 t; SHANE MONROE [facility] ty of ROTH, Orthopedics [place] SHANE MONROE Physi ci ans 2018-06-19 2018-06-19 [facility] [id number] Univers 08:15:00 08:15:00 t; [place] Tricia.OClemente Physicsp ans 2018-06-17 2018-06-17 [facility] [id number] Univers 15:45:00 15:45:00 t; Lesa BRYANT [facility], Orthopedics [place]to as Valery BRYANT M.D. ans 2018-06-03 2018-06-03 Appointmen [facility] [id number] Univers 13:45:00 13:45:00 t; SERJIO HUERTA [facility]. [facility] [place], [place] D.OClemente Physici ans Results Test Description Test Time Test Comments Results Result Sour e Comments [U] XRAY ELBOW 2 2018-06-17 Images Universi ty of VWS RIGHT [id number] 15:57:00 acquired, not [place] reported on Physicians this accession number. [U] XRAY WRIST 2018-06-17 Images University of MIN 3 VWS RIGHT 15:57:00 acquired, not [place] [id number] reported on Physicians this accession number.
[2021-01-02] MEDS ORDERED: ONDANSETRON 4 MG (ODT) TAB ONE (22:28)
[2021-01-02] MEDS ORDERED: KETOROLAC 30 MG/ML INJ ONE (22:28)
[2021-01-02] MEDS ORDERED: HYDROCODONE/APAP 5/325 MG TAB ONE (22:28)
--- NOTE | 2021-01-02 22:46 | EDPHYS ---
Physician Documentation [facility] Name: Terry Akins Sr Age: 40 yrs Sex: Male : 1980 Arrival Date: 01/02/2021 Time: 20:41 Bed 8 Private MD: ED Physician Jordin Guillaume HPI: 01/03 04:51 This 40 yrs old Black Male presents to ER via Ambulatory with complaints of Headache. tw4 04:51 The patient complains of pain to the forehead. The patient describes the headache as tw4 constant. Onset: The symptoms/episode began/occurred today. Associated signs and symptoms: The patient has no apparent associated signs or symptoms. Severity of symptoms: At its worst the pain was moderate, in the emergency department the pain is unchanged. The patient has not experienced similar symptoms in the past. 04:51 The patient has been recently seen at the [facility] Emergency tw4 Department, today, last week, for similar complaints. Historical: - Allergies: 01/02 20:48 No Known Allergies; ca1 - PMHx: 20:48 carpal tunnel; GERD; Hypertension; ca1 - PSHx: 20:48 Appendectomy; ca1 - Immunization history:: Client reports having NOT received the Covid vaccine. Flu vaccine is not up to date. - Social history:: Smoking status: Patient denies any tobacco usage or history of. ROS: 01/03 04:51 Constitutional: Negative for fever, chills, and weight loss, Eyes: Negative for injury, tw4 pain, redness, and discharge. Exam: 04:53 Constitutional: This is a well developed, well nourished patient who is awake, alert, tw4 and in no acute distress. Head/Face: Normocephalic, atraumatic. Chest/axilla: Normal chest wall appearance and motion. Nontender with no deformity. No lesions are appreciated. Cardiovascular: Regular rate and rhythm with a normal S1 and S2. No gallops, murmurs, or rubs. Normal PMI, no JVD. No pulse deficits. Respiratory: Lungs have equal breath sounds bilaterally, clear to auscultation and percussion. No rales, rhonchi or wheezes noted. No increased work of breathing, no retractions or nasal flaring. Abdomen/GI: Soft, non-tender, with normal bowel sounds. No distension or tympany. No guarding or rebound. No evidence of tenderness throughout. Back: No spinal tenderness. No costovertebral tenderness. Full range of motion. Skin: Warm, dry with normal turgor. Normal color with no rashes, no lesions, and no evidence of cellulitis. MS/ Extremity: Pulses equal, no cyanosis. Neurovascular intact. Full, normal range of motion. Neuro: Awake and alert, GCS 15, oriented to person, place, time, and situation. Cranial nerves II-XII grossly intact. Motor strength 5/5 in all extremities. Sensory grossly intact. Cerebellar exam normal. Normal gait. Vital Signs: 01/02 20:44 BP 177 / 102; Pulse 91; Resp 16 S; Temp 97.7(TE); Pulse Ox 99% on R/A; Weight 176.45 kg ca1 (R); Height 6 ft. 3 in. (190.50 cm) (R); Pain 10/10; 22:55 BP 168 / 89; Pulse 90; Resp 16; Pulse Ox 99% ; ea 20:44 Body Mass Index 48.62 (176.45 kg, 190.50 cm) ca1 Omar Coma Score: 01/03 04:54 Eye Response: spontaneous(4). Verbal Response: oriented(5). Motor Response: obeys tw4 commands(6). Total: 15. MDM: 01/02 21:50 Patient medically screened. tw4 01/03 04:54 Data reviewed: vital signs, nurses notes. Counseling: I had a detailed discussion with 4 the patient and/or guardian regarding: the historical points, exam findings, and any diagnostic results supporting the discharge/admit diagnosis. Special discussion: I discussed with the patient/guardian in detail that at this point there is no indication for admission to the hospital. It is understood, however, that if the symptoms persist or worsen the patient needs to return immediately for re-evaluation. Administered Medications: 01/02 22:13 Drug: TORadol (ketorolac) 60 mg Route: IM; Site: right deltoid; ea 22:50 Follow up: Response: No adverse reaction ea 22:13 Drug: [place] (HYDROcodone-acetaminophen) 5 mg-325 mg 1 tabs Route: PO; ea 22:50 Follow up: Response: No adverse reaction ea 22:13 Drug: Ondansetron 4 mg Route: PO; ea 22:50 Follow up: Response: No adverse reaction ea Disposition: 01/02/21 22:45 Discharged to Home. Impression: Concussion, Migraine without aura, intractable, without status migrainosus, Fracture of nasal bones. - Condition is Stable. - Discharge Instructions: Concussion, Adult, Migraine Headache, Nasal Fracture, Post-Concussion Syndrome. - Prescriptions for Fiorinal 50- 325-40 mg Oral Capsule - take 1 capsule by ORAL route every 4 hours As needed - not to exceed 6 capsules per day; 20 capsule. Imitrex 25 mg Oral Tablet - take 1 tablet by ORAL route one time - x 1 dose with fluids as early as possible after the onset of a migraine attack; if headache returns, the dose may be repeated after 2 hours, not to exceed a total daily dose of 8 tablets;. promethazine 25 mg Oral Tablet - take 1 tablet by ORAL route every 6 hours As needed; 20 tablet. - Medication Reconciliation Form, Thank You Letter, Antibiotic Education, Prescription Opioid Use form. - Follow up: Private Physician; When: Upon discharge from the Emergency Department; Reason: Recheck today's complaints, Continuance of care, Re-evaluation by your physician. - Problem is new. - Symptoms have improved. Signatures: Laverne Rider RN RN ea Wadley, Terrence, MD MD tw4 Nely Hinson RN RN ca1 Corrections: (The following items were deleted from the chart) 22:56 22:45 01/02/2021 22:45 Discharged to Home. Impression: Concussion; Migraine without ea aura, intractable, without status migrainosus; Fracture of nasal bones. Condition is Stable. Forms are Medication Reconciliation Form, Thank You Letter, Antibiotic Education, Prescription Opioid Use. Follow up: Private Physician; When: Upon discharge from the Emergency Department; Reason: Recheck today's complaints, Continuance of care, Re-evaluation by your physician. Problem is new. Symptoms have improved. tw4 22:57 22:56 01/02/2021 22:45 Discharged to Home. Impression: Concussion; Migraine without ea aura, intractable, without status migrainosus; Fracture of nasal bones. Condition is Stable. Discharge Instructions: Concussion, Adult, Migraine Headache, Nasal Fracture, Post-Concussion Syndrome. Prescriptions for Fiorinal 50-325-40 mg Oral Capsule - take 1 capsule by ORAL route every 4 hours As needed - not to exceed 6 capsules per day; 20 capsule, Imitrex 25 mg Oral Tablet - take 1 tablet by ORAL route one time - x 1 dose with fluids as early as possible after the onset of a migraine attack; if headache returns, the dose may be repeated after 2 hours, not to exceed a total daily dose of 8 tablets;, Zofran 4 mg Oral Tablet - take 1 tablet by ORAL route every 12 hours As needed; 6 tablet. and Forms are Medication Reconciliation Form, Thank You Letter, Antibiotic Education, Prescription Opioid Use. Follow up: Private Physician; When: Upon discharge from the Emergency Department; Reason: Recheck today's complaints, Continuance of care, Re-evaluation by your physician. Problem is new. Symptoms have improved. ea
--- NOTE | 2021-01-02 22:46 | ER ---
Nurse's Notes [facility] Name: Terry Akins Sr Age: 40 yrs Sex: Male : 1980 Arrival Date: 01/02/2021 Time: 20:41 Bed 8 Private MD: Diagnosis: Concussion;Migraine without aura, intractable, without status migrainosus;Fracture of nasal bones Presentation: 01/02 20:44 Chief complaint: Patient states: was here today for headaches, was treated and sent ca1 home. Was feeling better but when I woke up from my nap, my head is hurting again. Took Ibuprofen and Reglan, no relief. This morning they also said I had multiple nasal bone fractures buy am here now for my migraine. Coronavirus screen: Client denies travel out of the [place] in the last 14 days. At this time, the client does not indicate any symptoms associated with coronavirus-19. Ebola Screen: Patient negative for fever greater than or equal to 101.5 degrees Fahrenheit, and additional compatible Ebola Virus Disease symptoms Patient denies exposure to infectious person. Patient denies travel to an Ebola-affected area in the 21 days before illness onset. No symptoms or risks identified at this time. Initial Sepsis Screen: Does the patient meet any 2 criteria? No. Patient's initial sepsis screen is negative. Does the patient have a suspected source of infection? No. Patient's initial sepsis screen is negative. Risk Assessment: Do you want to hurt yourself or someone else? Patient reports no desire to harm self or others. Onset of symptoms was January 02, 2021. 20:44 Method Of Arrival: Ambulatory ca1 20:44 Acuity: SARITHA 3 ca1 Triage Assessment: 22:15 Headache History: The patient has had previous headaches and this one is similar to ea previous episodes. General: Appears in no apparent distress. Behavior is appropriate for age. Pain: Pain currently is 10 out of 10 on a pain scale. Pain began this AM Also complains of photophobia. Historical: - Allergies: 20:48 No Known Allergies; ca1 - PMHx: 20:48 carpal tunnel; GERD; Hypertension; ca1 - PSHx: 20:48 Appendectomy; ca1 - Immunization history:: Client reports having NOT received the Covid vaccine. Flu vaccine is not up to date. - Social history:: Smoking status: Patient denies any tobacco usage or history of. Screenin:51 Abuse screen: Denies threats or abuse. Nutritional screening: No deficits noted. ea Tuberculosis screening: No symptoms or risk factors identified. Fall Risk None identified. Assessment: 22:05 General: Appears in no apparent distress. Behavior is appropriate for age. Pain: ea Complains of pain in headache. Neuro: Level of Consciousness is awake, alert, obeys commands, Oriented to person, place, time. Respiratory: Airway is patent Respiratory effort is even, unlabored, Respiratory pattern is regular, symmetrical. Derm: Skin is pink, warm \T\ dry. 22:54 Reassessment: Patient and/or family updated on plan of care and expected duration. Pain ea level reassessed. Patient is alert, oriented x 3, equal unlabored respirations, skin warm/dry/pink. Discharge instruction given to patient verbalized the understanding of instruction. Pt left ED ambulatory tolerating well. Accompanied by family. Vital Signs: 20:44 BP 177 / 102; Pulse 91; Resp 16 S; Temp 97.7(TE); Pulse Ox 99% on R/A; Weight 176.45 kg ca1 (R); Height 6 ft. 3 in. (190.50 cm) (R); Pain 10/10; 22:55 BP 168 / 89; Pulse 90; Resp 16; Pulse Ox 99% ; ea 20:44 Body Mass Index 48.62 (176.45 kg, 190.50 cm) ca1 Omar Coma Score: 01/03 04:54 Eye Response: spontaneous(4). Verbal Response: oriented(5). Motor Response: obeys tw4 commands(6). Total: 15. ED Course: 01/02 20:41 Patient arrived in ED. ag3 20:48 Triage completed. ca1 20:48 Arm band placed on right wrist. ca1 21:50 Jordin Guillaume MD is Attending Physician. tw4 21:50 Laverne Rider RN is Primary Nurse. ea 21:51 Patient has correct armband on for positive identification. Bed in low position. Call ea light in reach. Side rails up X 1. 22:55 No provider procedures requiring assistance completed. Patient did not have IV access ea during this emergency room visit. Administered Medications: 22:13 Drug: TORadol (ketorolac) 60 mg Route: IM; Site: right deltoid; ea 22:50 Follow up: Response: No adverse reaction ea 22:13 Drug: [place] (HYDROcodone-acetaminophen) 5 mg-325 mg 1 tabs Route: PO; ea 22:50 Follow up: Response: No adverse reaction ea 22:13 Drug: Ondansetron 4 mg Route: PO; ea 22:50 Follow up: Response: No adverse reaction ea Outcome: 22:45 Discharge ordered by . chito 22:55 Discharged to home ambulatory, with family. ea 22:55 Condition: stable 22:55 Discharge instructions given to patient, Instructed on discharge instructions, follow up and referral plans. medication usage, Demonstrated understanding of instructions, follow-up care, medications, Prescriptions given X 3. 22:56 Patient left the ED. ea 22:57 Patient left the ED. ea Signatures: Laverne Rider, RN RN Jordin Khan MD MD tw4 Candice Sanchez 3 Nely Hinson RN RN ca1
[2021-01-02 23:52] VITALS: TEMP 97.7; O2SAT 99
[2021-01-02 23:54] VITALS: BP 168/89
== END 2021-01-02 22:57 | disposition home or self-care (01) ==
LOC: ER 20:40
DX: S06.0X0A Concussion without loss of consciousness, initial encounter (principal); S02.2XXA Fracture of nasal bones, initial encounter for closed fracture; G43.019 Migraine without aura, intractable, without status migrainosus; I10 Essential (primary) hypertension
CPT/HCPCS: 96372; 99283

== ENCOUNTER 2021-01-26 22:46 | Emergency (ER) | payer OTHER ==
--- OUTSIDE RECORDS SUMMARY | 2021-01-26 22:49 | XMS REPORT | Continuity of Care Document ---
:1980 Author Organization [facility] t Address [address] [place] [address] Care Team Providers Name Role Phone Asked, Pcp Primary Care Physician Unavailable Evaristo Hernadez DO Attending Clinician Sintia Hooks Attending Clinician Doctor Unassigned, Name Attending Clinician Unavailable MONAE Attending Clinician Unavailable BENJA Attending Clinician Unavailable MARCIAL Attending Clinician Unavailable TAMMY Attending Clinician Unavailable KESHIA Attending Clinician Unavailable GONZALEZ Attending Clinician Unavailable BRADLEY Attending Clinician Unavailable Problems Condition Condition Condition Status Onset Resolution Last Treating Co mments Source Name Details Category Date Date Treatment Clinician Date Syncope Syncope Disease Active 2017-08 [place] 0-14 Methodi 00:00: st 00 Cubital Cubital [...] essential essential ity of HTN HTN [place] [facility] Obstructiv Obstructiv Problem Active U nivers e sleep e sleep ity of apnea, apnea, [place] adult adult Physici ans Migraine Migraine Problem Active Unive rs headache headache ity of [place] Phys[facility] Chronic Chronic Problem Active Univers [...] History Uni versity of Family Member cerebrovascular [place] [facility] accident (CVA) Social History Social Habit Start Date Stop Date Quantity Comments Source Tobacco use and 2018-05-25 2018-05-25 Never used [facility] ethodist exposure 00:00:00 00:00:00 Alcohol intake 2018-05-25 2018-05-25 Current [facility] thodist 00:00:00 00:00:00 non-drinker of alcohol (finding) History of 2018-04-25 [facility]00 Sex Assigned At [birth year] [facility] ethodist 00:00:00 00:00:00 Smoking Status Start Date Stop Date Source Former smoker 2018-05-25 00:00:00 2018-05-25 00:00:00 [place] [facility] Medications Ordered Filled Start Stop Current Ordering Indication Dosage Frequency Signature Comments Components Source Medication Medication Date Date Medication? Clinician (SIG) Name Name Marysol Gregg 2019-0 2020- No Norah [address] [facility] e HCl e HCl 4-28 05-03 [place] as needed [facility] for n[facility]v [facility] :[facility] SUMAtriptan SUMAtriptan Yes POURAN inject PRN Univers Succinate 6 Succinate 6 2-21 BENJA onset of ity of MG/0.5ML MG/0.5ML 00:00: M.D. the [place] Subcutaneou Subcutaneou 00 cluster Physici s Solution [...] [place] as needed [facility] Losartan Losartan Yes Noarh [address] Potassium-H Potassium-H [place] [facility] CTZ CTZ [facility] Hydrocodone Hydrocodone Yes Norah [address] [facility] -Acetaminop -Acetaminop [place] as needed [facility] Adderall XR Adderall XR Yes Norah [address] [facility] [place] in the [facility] morning [facility] Omeprazole Omeprazole Yes Norah [address] [facility] [place] 30 minutes [facility] - before Memoria morning l meal [facility] Dicyclomine Dicyclomine Yes Norah [address] [facility] [address] HCl HCl [place] [facility] Immunizations Ordered Immunization Filled Immunization Date Status Commen ts Source Name Name Taryn Gaytanivalent 2018-06-03 Completed Univ ersity of 0.5 ML Intramuscular 14:35:00 [place] [facility] Vital Signs Vital Name Observation Time Observation Value Comments Source BP Systolic 2018-10-02 155 mm[Hg] Location: [facility] ::00 Position: [place] Phys[facility] Sitting BP Diastolic 2018-10-02 88 mm[Hg] Location: [facility] ::00 Position: [place] Physician s Sitting Height 2018-10-02 75 [in_us] [facility] ::00 [place] Physician s Weight 2018-10-02 302 [lb_av] [facility] ::00 [place] Physician s Body Mass Index 2018-10-02 37.75 kg/m2 University o f Calculated 15:26:00 [place] Physician s Temperature 2018-10-02 98 [degF] Method: Oral [facility] 15:26:00 [place] [facility] Heart Rate 2018-10-02 63 /min Location: [facility] ::00 Apical; [place] [facility] BP Systolic 2018-09-25 154 mm[Hg] [facility] ::[facility] Position: [place] Physician s Sitting BP Diastolic 2018-09-25 98 mm[Hg] Location: [facility] ::00 Position: [place] Physician s Sitting Heart Rate 2018-09-25 70 /min Quality: Normal University o f 10:26:00 [place] Physician s BP Systolic 2018-09-25 169 mm[Hg] Location: [facility] 10:25:00 Position: [place] Physician s Sitting BP Diastolic 2018-09-25 65 mm[Hg] Location: [facility] :25:00 Position: [place] Physician s Sitting Heart Rate 2018-09-25 67 /min Quality: Normal University o f 10:25:00 [place] Physician s Height 2018-09-25 75 [in_us] [facility] 10:25:00 [place] Physician s Weight 2018-09-25 295 [lb_av] University of 10:25:00 [place] Physician s Body Mass Index 2018-09-25 36.87 kg/m2 University o f Calculated 10:25:00 [place] Physician s Temperature 2018-09-25 98.3 [degF] Method: Oral [facility] of 10:25:00 [place] Physician s O2 SAT 2018-09-25 99 % University of 10:: [place] Physician s BP Systolic 2018-06-03 136 mm[Hg] Location: [facility]; [facility] :09: Position: [place] Physician s Sitting BP Diastolic 2018-06-03 75 mm[Hg] Location: [facility] [place]; [facility] :09: Position: [place] Physician s Sitting Height 2018-06-03 75 [in_us] University :: [place] Physician s Weight 2018-06-03 317 [lb_av] University :: [place] Physician s Body Mass Index 2018-06-03 39.62 kg/m2 University o f Calculated 14::00 [place] Physician s Temperature 2018-06-03 97.9 [degF] Method: Oral [facility] :: [place] Physician s Heart Rate 2018-06-03 74 /min University :: [place] [facility] Procedures Procedure Date / Time Performing Clinician Source Performed [U] XRAY KNEE 4 OR MORE 2018-07-24 00:00:00 [facility] VWS RIGHT [id number] Physicians Emg/Ncv 2018-06-20 00:00:00 University o f [place] [facility] Sleep Lab - Sleep 2018-06-03 00:00:00 [facility] Study Split Night Physicians History of Cubital tunnel [facility] repair Physicians History of Appendectomy [facility] Physicians History of Wrist surgery [facility] Physicians History of [facility] xa Hemorrhoidectomy Physicians Plan of Care Planned Activity Planned Date Details Comments Source Future Scheduled 2021-03-12 INFLUENZA VACCINE [place] [facility] Test 00:00:00 [code = INFLUENZA VACCINE] Diagnostic Test 2018-06-20 Emg/Ncv [code = [facility] [place] Pending 00:00:00 Emg/Ncv] Physicians Diagnostic Test 2018-06-20 Emg/Ncv [code = [facility] [place] Pending 00:00:00 Emg/Ncv] Physicians Future Scheduled 1998 Hepatitis C [facility] hodist Test 00:00:00 screening (procedure) [code = 271728434] Future Scheduled 1992 COVID-19 VACCINE [place] [facility] Test 00:00:00 (1) [code = COVID-19 VACCINE (1)] Encounters Start End Encounter Admission Attending Care Care Encounter Source Date/Time Date/Time Type Type Clinicians Facility Department ID 2021-01-17 2021-01-17 Emergency Satya, [facility] [id number] 19:28:00 19:33:00 Isabella Armstrong [id number] Raph[place] [id number] [place] [id number] 2020-11-21 2020-11-21 Emergency Blaire Guevara [facility] [id number] 16:01:00 20:48:00 Sintia Armstrong [id number] Raph[place] [id number] [place] [id number] 2020-11-21 2020-11-21 Orders Doctor AICHA [id number] 00:00:00 00:00:00 Only Unassigned, ABDULKADIR [id number] 2020-07-20 2020-07-20 Outpatient [facility] [id number] [facility] 2020-07-20 2020-07-20 Orders Doctor HOLCOMB [id number] 00:00:00 00:00:00 Only UnassignedABDULKADIR [id number] [id number] 2020-07-12 2020-07-12 Outpatient [facility] [id number] [facility] 2020-05-23 2020-05-23 Outpatient [facility] [id number] [facility] 2020-02-24 2020-02-24 [facility] [id number] 14:42:00 14:42:[address] - Drive [facility] Out[facility] ent Clinics 2020-02-22 2020-02-22 [facility] [id number] 13:51:00 13:51:00 t [facility] s Road [facility] Clinics 2019-12-10 2019-12-10 [facility] [id number] 15:39:00 15:39:00 t [facility] s - Road [facility] Outpati ent Clinics 2019-12-08 2019-12-08 [facility] [id number] 13:40:00 13:40:00 t [facility] [place] [facility] Clinics 2019-12-07 2019-12-07 [facility] [id number] 12:05:00 12:05:00 t [facility] center ent Clinics 2019-11-16 2019-11-16 [facility] [id number] 11[facility]00:00 11:00:00 [facility] Clin[facility] 2019-10-21 2019-10-21 Emergency Blaire Guevara [facility] [id number] 11:24:16 14:51:00 Sintia Armstrong [id number] [place] [id number] [place] [id number] 2019-09-29 2019-09-29 [facility] [id number] 09:21:00 09:21:00 t [facility] ent Clinics 2019-09-21 2019-09-21 [facility] [id number] 14:00:00 14:00:00 t [facility] Clinics 2019-03-13 2019-03-13 EUNICE Diaz [id number] Univers 09:00:00 09:00:00 t; Lesa RODRIGUEZ it y [place], [place] Valery RODRIGUEZ M.D. ans 2018-10-02 2018-10-02 Appointmen EUNICE YOUSIF [facility] [id number] Univers 15:00:00 15:00:00 t; ROBERT [facility] Lesa YOUSIF [place] Valery JONES M.D. ans 2018-09-25 2018-09-25 Appointmen MARCIAL [facility] [id number] Univers 10:30:00 10:30:00 t; BRANT CEJA, DIPPER FISH Health and ity BRANT, DIPPER [facility] [place] [facility] Valery Scott ans 2018-09-22 2018-09-22 Appointmen EUNICE YOUSIF [facility] [id number] Univers 15:30:00 15:30:00 t; ROBERT [facility] Lesa YOUSIF [place] Valery JONES M.D. ans 2018-08-22 2018-08-22 [facility] [id number] Univers 09:30:00 09:30:00 t; Lesa BRYANT it y of [place], [place] Valery BRYANT M.D. ans 2018-07-29 2018-07-29 Appointmen TAMMY [facility] [id number] Univers 14:30:00 14:30:00 t; Lesa BRYANT it y of [place], [place] Valery BRYANT M.D. ans 2018-07-25 2018-07-25 [facility] [id number] Univers 10:30:00 10:30:00 t; Lesa BRITT at [facility] of [place], [place] Valery BRITT M.D. ans 2018-07-22 2018-07-22 Appointmen TAMMY [facility] [id number] Univers 11:15:00 11:15:00 t; Lesa BRYANT [facility] Orthopedics Norberto Valery BRYANT M.D. ans 2018-07-15 2018-07-15 Appointmen TAMMY [facility] [id number] Univers 10:30:00 10:30:00 t; Lesa BRYANT [facility] ity [facility], Orthopedics Norberto as Valery BRYANT M.D. ans 2018-07-09 2018-07-09 [facility] [id number] Univers 13:00:00 13:00:00 t; Lesa BRYANT it y of [place], [place] Vlaery BRYANT M.D. ans 2018-06-30 2018-06-30 [id number] Univers 10:15:00 10:15:00 t; Lesa BRYANT [facility], Orthopedics Norberto as Val[place] BRYANT M.D. ans 2018-06-20 2018-06-20 [id number] Univers 13:40:00 13:40:00 t; SHANE MONROE [facility] ty of [place], [place] SHANE MONROE Physi ci ans 2018-06-19 2018-06-19 [facility] [id number] Univers 08:15:00 08:15:00 t; SERJIO HUERTA D.O. ity [place], [place] XeniaOClemente Physicsp ans 2018-06-17 2018-06-17 [facility] [id number] Univers 15:45:00 15:45:00 t; Lesa BRYANT [facility], Orthopedics Norberto as Valery BRYANT M.D. ans 2018-06-03 2018-06-03 [facility] [id number] Univers 13:45:00 13:45:00 t; SERJIO [place]ERTA [place] ity [place], [place] Tricia.OClemente Physici ans Results Test Description Test Time Test Comments Results Result Sour e Comments [U] XRAY ELBOW 2 2018-06-17 Images Universi ty of VWS RIGHT [id number] 15:57:00 acquired, not [place] reported on Physicians this accession number. [U] XRAY WRIST 2018-06-17 Images University of MIN 3 VWS RIGHT 15:57:00 acquired, not [place] [id number] reported on Physicians this accession number.
--- NOTE | 2021-01-27 00:03 | EDPHYS ---
Physician Documentation [facility] Name: Terry Akins Sr Age: 40 yrs Sex: Male : 1980 Arrival Date: 01/26/2021 Time: 23:01 Bed 13 Private MD: ED Physician Talon Whitt HPI: 01/26 23:52 This 40 yrs old Black Male presents to ER via Ambulatory with complaints of sin Nausea/Vomiting/Diarrhea. 23:52 The patient presents to the emergency department with nausea, vomiting, that is sin continuous. Onset: The symptoms/episode began/occurred just prior to arrival. Possible causes: unknown. The symptoms are aggravated by food , The symptoms are alleviated by nothing. Associated signs and symptoms: The patient has no apparent associated signs or symptoms. Severity of symptoms: At their worst the symptoms were mild in the emergency department the symptoms are unchanged. The patient has not experienced similar symptoms in the past. Historical: - Allergies: 23:17 No Known Allergies; em - PMHx: 23:17 carpal tunnel; GERD; Hypertension; em - PSHx: 23:17 Appendectomy; em - Immunization history:: Adult Immunizations up to date. - Social history:: Smoking status: Patient reports the use of cigarette tobacco products, denies chronic smoking, but will smoke occasionally. - Family history:: not pertinent. ROS: 23:52 Constitutional: Negative for fever, chills, and weight loss, Eyes: Negative for injury, sin pain, redness, and discharge, ENT: Negative for injury, pain, and discharge, Neck: Negative for injury, pain, and swelling, Cardiovascular: Negative for chest pain, palpitations, and edema, Respiratory: Negative for shortness of breath, cough, wheezing, and pleuritic chest pain, Back: Negative for injury and pain, : Negative for injury, bleeding, discharge, and swelling, MS/Extremity: Negative for injury and deformity, Skin: Negative for injury, rash, and discoloration, Neuro: Negative for headache, weakness, numbness, tingling, and seizure, Psych: Negative for depression, anxiety, suicide ideation, homicidal ideation, and hallucinations, Allergy/Immunology: Negative for hives, rash, and allergies, Endocrine: Negative for neck swelling, polydipsia, polyuria, polyphagia, and marked weight changes, Hematologic/Lymphatic: Negative for swollen nodes, abnormal bleeding, and unusual bruising. 23:52 Abdomen/GI: Positive for nausea and vomiting, diarrhea. Exam: 23:52 Constitutional: This is a well developed, well nourished patient who is awake, alert, sin and in no acute distress. Head/Face: Normocephalic, atraumatic. Eyes: Pupils equal round and reactive to light, extra-ocular motions intact. Lids and lashes normal. Conjunctiva and sclera are non-icteric and not injected. Cornea within normal limits. Periorbital areas with no swelling, redness, or edema. ENT: Nares patent. No nasal discharge, no septal abnormalities noted. Tympanic membranes are normal and external auditory canals are clear. Oropharynx with no redness, swelling, or masses, exudates, or evidence of obstruction, uvula midline. Mucous membranes moist. Neck: Trachea midline, no thyromegaly or masses palpated, and no cervical lymphadenopathy. Supple, full range of motion without nuchal rigidity, or vertebral point tenderness. No Meningismus. Chest/axilla: Normal chest wall appearance and motion. Nontender with no deformity. No lesions are appreciated. Cardiovascular: Regular rate and rhythm with a normal S1 and S2. No gallops, murmurs, or rubs. Normal PMI, no JVD. No pulse deficits. Respiratory: Lungs have equal breath sounds bilaterally, clear to auscultation and percussion. No rales, rhonchi or wheezes noted. No increased work of breathing, no retractions or nasal flaring. Abdomen/GI: Soft, non-tender, with normal bowel sounds. No distension or tympany. No guarding or rebound. No evidence of tenderness throughout. Back: No spinal tenderness. No costovertebral tenderness. Full range of motion. Male : Normal genitalia with no discharge or lesions. Skin: Warm, dry with normal turgor. Normal color with no rashes, no lesions, and no evidence of cellulitis. MS/ Extremity: Pulses equal, no cyanosis. Neurovascular intact. Full, normal range of motion. Neuro: Awake and alert, GCS 15, oriented to person, place, time, and situation. Cranial nerves II-XII grossly intact. Motor strength 5/5 in all extremities. Sensory grossly intact. Cerebellar exam normal. Normal gait. Psych: Awake, alert, with orientation to person, place and time. Behavior, mood, and affect are within normal limits. Vital Signs: 23:15 BP 137 / 74; Pulse 91; Resp 16; Temp 97.8; Pulse Ox 96% on R/A; Weight 150.14 kg; em Height 6 ft. 3 in. (190.50 cm); Pain 7/10; 01/27 00:15 BP 128 / 70; Pulse 88; Resp 18; Pulse Ox 98% on R/A; ea 01/26 23:15 Body Mass Index 41.37 (150.14 kg, 190.50 cm) em MDM: 01/26 23:10 Patient medically screened. sin 23:54 Differential diagnosis: Nonspecific abd pain, gastritis, viral gastroenteritis, sin gastroenteritis. Data reviewed: vital signs, nurses notes, lab test result(s), CBC, electrolytes, hepatic panel. Data interpreted: engine monitor: not applicable for this patient encounter. rate is 91 beats/min, rhythm is regular, Pulse oximetry: on room air is 96 %. Counseling: I had a detailed discussion with the patient and/or guardian regarding: the historical points, exam findings, and any diagnostic results supporting the discharge/admit diagnosis, lab results. 01/26 23:11 Order name: IV Saline Lock; Complete Time: 23:52 ea 01/26 23:11 Order name: Labs collected and sent; Complete Time: 23:53 ea Administered Medications: 01/27 00:06 Drug: Zofran (Ondansetron) 4 mg Route: IVP; Site: right antecubital; ea 00:25 Follow up: Response: No adverse reaction ea Disposition: 01/27/21 00:02 Discharged to Home. Impression: Nausea, Nausea and vomiting. - Condition is Stable. - Discharge Instructions: Nausea and Vomiting, Adult, Nausea, Adult, Nausea and Vomiting, Adult, [id number]. - Prescriptions for Zofran 4 mg Oral Tablet - take 1 tablet by ORAL route every 12 hours As needed; 20 tablet. - Work release form, Medication Reconciliation Form, Thank You Letter, Antibiotic Education, Prescription Opioid Use form. - Follow up: Private Physician; When: 2 - 3 days; Reason: Recheck today's complaints, Continuance of care, Re-evaluation by your physician. - Problem is new. - Symptoms have improved. Signatures: Dispatcher [employer] Talon Vargas MD MD sin Pleitez, Tristan, RN RN Laverne Duncan, RN RN ea Corrections: (The following items were deleted from the chart) 00:23 01/26 23:11 CBC+H.LAB.BRZ ordered. [facility] 01/27 00:24 01/26 23:11 BASIC METABOLIC PANEL+C.LAB.BRZ ordered. [facility] 01/27 00:24 01/26 23:11 HEPATIC FUNCTION+C.LAB.BRZ ordered. [facility] 01/27 00:24 01/26 23:11 LIPASE+C.LAB.BRZ ordered. [facility] 01/27 00:24 00:02 01/27/2021 00:02 Discharged to Home. Impression: Nausea; Nausea and vomiting. ea Condition is Stable. Discharge Instructions: Nausea and Vomiting, Adult, Nausea, Adult, Nausea and Vomiting, Adult, [id number]. Prescriptions for Zofran 4 mg Oral Tablet - take 1 tablet by ORAL route every 12 hours As needed; 20 tablet. and Forms are Work release form, Medication Reconciliation Form, Thank You Letter, Antibiotic Education, Prescription Opioid Use. Follow up: Private Physician; When: 2 - 3 days; Reason: Recheck today's complaints, Continuance of care, Re-evaluation by your physician. Problem is new. Symptoms have improved. sin
--- NOTE | 2021-01-27 00:03 | ER ---
Nurse's Notes [facility] Name: Terry Akins Sr Age: 40 yrs Sex: Male : 1980 Arrival Date: 01/26/2021 Time: 23:01 Bed 13 Private MD: Diagnosis: Nausea;Nausea and vomiting Presentation: 01/26 23:15 Chief complaint: Patient states: ate a beef and cheese taco from convenient store, em started N/V/D about 1.5 hour after eating it, also reports abdominal pain. Coronavirus screen: Client denies travel out of the [place] in the last 14 days. Ebola Screen: Patient negative for fever greater than or equal to 101.5 degrees Fahrenheit, and additional compatible Ebola Virus Disease symptoms Patient denies exposure to infectious person. Patient denies travel to an Ebola-affected area in the 21 days before illness onset. No symptoms or risks identified at this time. Initial Sepsis Screen: Does the patient meet any 2 criteria? HR > 90 bpm. No. Patient's initial sepsis screen is negative. Does the patient have a suspected source of infection? No. Patient's initial sepsis screen is negative. Risk Assessment: Do you want to hurt yourself or someone else? Patient reports no desire to harm self or others. Onset of symptoms was January 26, 2021. 23:15 Method Of Arrival: Ambulatory em 23:15 Acuity: SARITHA 3 em Historical: - Allergies: 23:17 No Known Allergies; em - PMHx: 23:17 carpal tunnel; GERD; Hypertension; em - PSHx: 23:17 Appendectomy; em - Immunization history:: Adult Immunizations up to date. - Social history:: Smoking status: Patient reports the use of cigarette tobacco products, denies chronic smoking, but will smoke occasionally. - Family history:: not pertinent. Screenin:39 Abuse screen: Denies threats or abuse. Nutritional screening: No deficits noted. ea Tuberculosis screening: No symptoms or risk factors identified. Fall Risk IV access (20 points). Assessment: 23:42 General: Appears in no apparent distress. Behavior is calm, cooperative, appropriate ea for age. Pain: Complains of pain in abdomen, headache. Neuro: Level of Consciousness is awake, alert, obeys commands, Oriented to person, place, time. Respiratory: Airway is patent Respiratory effort is even, unlabored, Respiratory pattern is regular, symmetrical. GI: Abdomen is non-distended. Derm: Skin is pink, warm \T\ dry. 01/27 00:24 Reassessment: Patient and/or family updated on plan of care and expected duration. Pain ea level reassessed. Patient is alert, oriented x 3, equal unlabored respirations, skin warm/dry/pink. Vital Signs: 01/26 23:15 BP 137 / 74; Pulse 91; Resp 16; Temp 97.8; Pulse Ox 96% on R/A; Weight 150.14 kg; em Height 6 ft. 3 in. (190.50 cm); Pain 7/10; 01/27 00:15 BP 128 / 70; Pulse 88; Resp 18; Pulse Ox 98% on R/A; ea 01/26 23:15 Body Mass Index 41.37 (150.14 kg, 190.50 cm) em ED Course: 01/26 23:01 Patient arrived in ED. am4 23:10 Laverne Rider RN is Primary Nurse. ea 23:10 Talon Whitt MD is Attending Physician. [facility] 23:17 Triage completed. 23:17 Arm band placed on. em 23:39 Patient has correct armband on for positive identification. Bed in low position. Call ea light in reach. Side rails up X2. 23:39 Inserted saline lock: 20 gauge in right antecubital area, using aseptic technique. ea Blood collected. 01/27 00:24 No provider procedures requiring assistance completed. IV discontinued, intact, ea bleeding controlled, No redness/swelling at site. Pressure dressing applied. Administered Medications: 00:06 Drug: Zofran (Ondansetron) 4 mg Route: IVP; Site: right antecubital; ea 00:25 Follow up: Response: No adverse reaction ea Outcome: 00:02 Discharge ordered by . [facility] 00:24 Discharged to home ambulatory. ea 00:24 Condition: stable 00:24 Discharge instructions given to patient, Instructed on discharge instructions, follow up and referral plans. medication usage, Demonstrated understanding of instructions, follow-up care, medications, Prescriptions given X 1. 00:24 Patient left the ED. ea Signatures: Talon Whitt MD MD cha Munoz, Edgar RN RN Laverne Rider RN RN ea Martinez, Ashley am4
[2021-01-27] MEDS ORDERED: ONDANSETRON 4 MG/2 ML VIAL ONE (00:15)
[2021-01-27 00:32] VITALS: BP 137/74; TEMP 97.8; O2SAT 96
== END 2021-01-27 00:24 | disposition home or self-care (01) ==
LOC: ER 22:46
DX: R11.2 Nausea with vomiting, unspecified (principal); R19.7 Diarrhea, unspecified; K21.9 Gastro-esophageal reflux disease without esophagitis; I10 Essential (primary) hypertension; F17.210 Nicotine dependence, cigarettes, uncomplicated

== ENCOUNTER 2021-03-31 09:44 | Emergency (ER) | payer OTHER ==
--- OUTSIDE RECORDS SUMMARY | 2021-03-31 09:49 | XMS REPORT | Continuity of Care Document ---
:1980 Author Organization [facility] t Address [address] [place] [address] Care Team Providers Name Role Phone Asked, Pcp Primary Care Physician Unavailable 1, Audio Sound Suite Attending Clinician Unavailable MONAE Attending Clinician Unavailable BENJA Attending Clinician Unavailable MARCIAL Attending Clinician Unavailable TAMMY Attending Clinician Unavailable KESHIA Attending Clinician Unavailable GONZALEZ Attending Clinician Unavailable BRADLEY Attending Clinician Unavailable Problems Condition Condition Condition Status Onset Resolution Last Treating Co mments Source Name Details Category Date Date Treatment Clinician Date Syncope Syncope Disease Active 2017-[facility] l Cubital Cubital Problem Active Univers tunnel tunnel [...] Active Unive rs headache headache [facility] [place] [facility] Chronic Chronic Problem Active [facility] GERD GERD [facility] [place] [facility] History of History of Problem Resolve [facility] arthritis arthritis [facility] [place] [facility] History of History of Problem Resolve [facility] asthma asthma [facility] [place] [facility] History of History of Problem [...] Tobacco use and 2018-05-25 2018-05-25 Never used [facility] exposure 00:00:00 00:00:00 Hospital Alcohol intake 2018-05-25 2018-05-25 Current Taoist 00:00:00 00:00:00 non-drinker of Hospital alcohol (finding) History of 2018-04-25 Current smoker [facility] tobacco use 00:00:00 Hospital Sex Assigned At [birth year] [facility] 00:00:00 00:00:00 Hospital Smoking Status Start Date Stop Date Source Former smoker 2018-05-25 00:00:00 2018[facility] Start Stop Current Ordering Indication Dosage Frequency Signature Comments Components Source Medication Medication Date Date Medication? Clinician (SIG) Name Name Marysol Carrilloethazin 2019-0 2020- No Norah [address] [facility] HCl e HCl 4-28 05-03 [place] [facility] needed [facility]: [facility] for n/v [facility] 00 :[facility] SUMAtriptan SUMAtriptan Yes POURAN inject PRN Univers Succinate 6 Succinate 6 2-21 BENJA onset of ity of MG/0.5ML MG/0.5ML 00:00: M.D. the [place] Subcutaneou Subcutaneou 00 cluster Physici s Solution [...] DAILY. [place] Tablet Tablet 00 Physici ans No known No [facility] medications [facility] Zofran Zofran Yes Norah 1 tablet [facility] [place] [facility] Losartan Losartan Yes Norah [address] Potassium-H Potassium-H [place] [facility] CTZ CTZ [facility] Hydrocodone Hydrocodone Yes Norah [address] -Acetaminop -Acetaminop [place] as needed [facility] Adderall XR Adderall XR Yes Norah [address] [facility] [place] in the [facility] morning [facility] Omeprazole Omeprazole Yes Norah [address] [facility] [address] [place] 30 minutes [facility] - before [facility] morning l meal [facility] Dicyclomine Dicyclomine Yes Norah [address] HCl HCl [place] [facility] Immunizations Ordered Immunization Filled Immunization Date Status Commen ts Source Name Name Taryn Quadrivalent 2018-06-03 Completed Univ ersity of 0.5 ML Intramuscular 14:35:00 Norbertoa s Physicians Suspension Vital Signs Vital Name Observation Time Observation Value Comments Source BP Systolic 2018-10-02 155 mm[Hg] Location: [facility] ::00 Position: [place] Physician s Sitting BP Diastolic 2018-10-02 88 mm[Hg] Location: [facility] ::00 Position: [place] Physician s Sitting Height 2018-10-02 75 [in_us] [facility] ::00 [place] Physician s Weight 2018-10-02 302 [lb_av] [facility] :: [place] Physician s Body Mass Index 2018-10-02 37.75 kg/m2 University o f Calculated 15:26:00 [place] Physician s Temperature 2018-10-02 98 [degF] Method: Oral [facility] ::00 [place] Physician s Heart Rate 2018-10-02 63 /min Location: [facility] ::00 Apical; [place] Physician s BP Systolic 2018-09-25 154 mm[Hg] Location: [facility] ::00 Position: [place] Physician s Sitting BP Diastolic 2018-09-25 98 mm[Hg] Location: [facility] ::00 Position: [place] Physician s Sitting Heart Rate 2018-09-25 70 /min Quality: Normal University o f 10:26:00 [place] Physician s BP Systolic 2018-09-25 169 mm[Hg] Location: [facility] 10:25:00 Position: [place] Physician s Sitting BP Diastolic 2018-09-25 65 mm[Hg] Location: [facility] :25:00 Position: [place] Physician s Sitting Heart Rate 2018-09-25 67 /min Quality: Normal University o f 10:25:00 [place] Physician s Height 2018-09-25 75 [in_us] [facility] 10:25:00 [place] Physician s Weight 2018-09-25 295 [lb_av] [facility] 10:25:00 [place] Physician s Body Mass Index 2018-09-25 36.87 kg/m2 University o f Calculated 10:25:00 [place] Physician s Temperature 2018-09-25 98.3 [degF] Method: Oral University 10:25:00 [place] Physician s O2 SAT 2018-09-25 99 % University 10:25:00 [place] Physician s BP Systolic 2018-06-03 136 mm[Hg] Location: [facility] :09: Position: [place] Physician s Sitting BP Diastolic 2018-06-03 75 mm[Hg] Location: [facility] :09:00 Position: [place] Physician s Sitting Height 2018-06-03 75 [in_us] University :09:00 [place] Physician s Weight 2018-06-03 317 [lb_av] [facility] :: [place] Physician s Body Mass Index 2018-06-03 39.62 kg/m2 University o f Calculated 14:: [place] [facility] s Temperature 2018-06-03 97.9 [degF] Method: Oral [facility] :09:00 [place] [facility] Heart Rate 2018-06-03 74 /min [facility] :09:00 [place] [facility] s Procedures Procedure Date / Time Performing Clinician Source Performed [U] XRAY KNEE 4 OR MORE 2018-07-24 00:00:00 [facility] VWS RIGHT [id number] Physicians Emg/Ncv 2018-06-20 00:00:00 [facility] [place] [facility] Sleep Lab - Sleep 2018-06-03 00:00:00 [facility] Study Split Night Physicians History of Cubital tunnel [facility] repair Physicians History of Appendectomy [facility] Physicians History of Wrist surgery [facility] Physicians History of [facility] xa Hemorrhoidectomy Physicians Plan of Care Planned Activity Planned Date Details Comments Source Diagnostic Test 2018-06-20 Emg/Ncv [code = [facility] [place] Pending 00:00:00 Emg/Ncv] Physicians Diagnostic Test 2018-06-20 Emg/Ncv [code = [facility] Pending 00:00:00 Emg/Ncv] Physicians Future Scheduled COVID-[address] [facility] Test (1) [code = COVID-19 VACCINE (1)] Future Scheduled Hepatitis C [facility] Test screening (procedure) [code = 862403650] Future Scheduled INFLUENZA VACCINE [facility] Test [code = INFLUENZA VACCINE] Encounters Start End Encounter Admission Attending Care Care Encounter Source Date/Time Date/Time Type Type Clinicians Facility Department ID 2021-03-21 2021-03-21 Ancillary 1, Cristopher FOSTER [id number] 14:21:34 15:15:15 Visit Audio Sound Y [id number] [facility] [id number] [facility] [id number] BLDG. [id number] 2020-07-20 2020-07-20 Outpatient [facility] [id number] [facility] 2020-07-12 2020-07-12 [facility] [id number] [facility] 2020-05-23 2020-05-23 Out[facility] [id number] [facility] 2020-02-24 2020-02-24 [facility] [id number] [address] 14:42:00 14:42:00 t [employer] [facility] l Medicine Outpati ent Clinics 2020-02-22 2020-02-22 [facility] [id number] 13:51:00 13:51:[address] [facility] l Medicine Outpati ent Clinics 2019-12-10 2019-12-10 [facility] [id number] 15:39:00 15:39:00 t [facility] Medicine l Medicine Outpati ent Clinics 2019-12-08 2019-12-08 [facility] [id number] 13:40:00 13:40:00 t [facility] [employer] [facility] Medicine Medicine Outpati ent Clinics 2019-12-07 2019-12-07 [facility] [id number] 12:05:00 12:05:00 t [place] [facility] l Medicine Outpati ent Clinics 2019-11-16 2019-11-16 [facility] [id number] 11:00:00 11:00:00 t [facility] Clinics 2019-09-29 2019-09-29 [facility] [id number] 09:21:00 09:21:00 t [facility] ent Clinics 2019-09-21 2019-09-21 [facility] [id number] 14:00:00 14:00:00 t [facility] ent Clinics 2019-03-13 2019-03-13 Appointmen EUNICE LICONA [id number] Univers 09:00:00 09:00:00 t; Lesa RODRIGUEZ y Mirna Ho Physici M.D. ans 2018-10-02 2018-10-02 Appointmen EUNICE YOUSIF [id number] Univers 15:00:00 15:00:00 t; Asher JONES stephen YOUSIF M.D. [place] Valery JONES M.D. ans 2018-09-25 2018-09-25 Appointmen EUNICE CEJA [facility] [id number] Univers 10:30:00 10:30:00 t; BRANT CEJA, [facility], [facility] [place] [facility] Valery Santosberg ans 2018-09-22 2018-09-22 Appointmen EUNICE YOUSIF [id number] Univers 15:30:00 15:30:00 t; ROBERT [facility] Janay M.D. [place] Valery JONES M.D. ans 2018-08-22 2018-08-22 Appointmen EUNICE MUNOZ [id number] Univers 09:30:00 09:30:00 t; Lesa BRYANT y Mirna Cyr Physici M.D. ans 2018-07-29 2018-07-29 Appointmen EUNICE MUNOZ [id number] Univers 14:30:00 14:30:00 t; Lesa BRYANT y Mirna Cyr Physici M.D. ans 2018-07-25 2018-07-25 Appointmen [facility] Orthopedics [id number] Univers 10:30:00 10:30:00 t; Lesa BRITT at [place], [place] Valery BRITT M.D. ans 2018-07-22 2018-07-22 [facility] [id number] Univers 11:15:00 11:15:00 t; Lesa BRYANT [facility], Orthopedics Norberto as Valery BRYANT M.D. ans 2018-07-15 2018-07-15 [facility] [id number] Univers 10:30:00 10:30:00 t; [facility] Norberto as Valery BRYANT M.D. ans 2018-07-09 2018-07-09 [facility] [id number] Univers 13:00:00 13:00:00 t; Lesa BRYANT [place], [place] Valery BRYANT M.D. ans 2018-06-30 2018-06-30 [facility] [id number] Univers 10:15:00 10:15:00 t; Lesa BRYANT [facility], Orthopedics Norberto as Valery BRYANT M.D. ans 2018-06-20 2018-06-20 Appointmen [facility] [id number] Univers 13:40:00 13:40:00 t; [facility] [place] SHANE MONROE Physi ci ans 2018-06-19 2018-06-19 [facility] [id number] Univers 08:15:00 08:15:00 t; SERJIO HUERTA D.O. ity of [place], [place] Tricia.OClemente Physicsp ans 2018-06-17 2018-06-17 [facility] [id number] Univers 15:45:00 15:45:00 t; Lesa BRYANT [facility], Orthopedics Norberto as Valery BRYANT M.D. ans 2018-06-03 2018-06-03 Appointmen EUNICE HUERTA Francisca [id number] Univers 13:45:00 13:45:00 t; SERJIO HUERTA D.O. [facility] Mirna Rasmussen ans Results Test Description Test Time Test Comments Results Result Sour e Comments [U] XRAY ELBOW 2 2018-06-17 Images [facility] RIGHT [id number] 15:57:00 acquired, not [place] reported on Physicians this accession number. [U] XRAY WRIST 2018-06-[address] [facility] 3 [facility] RIGHT 15:57:00 acquired, not [place] [id number] reported on Physicians this accession number.
[2021-03-31 11:12] LABS: Absolute Lymphocytes (CBC) 1.9 K/uL (0.7-4.9); Basophils % 0.8 % (0-1.3); Hematocrit 41.8 % (39.6-49.0); Lymphocytes % 32.4 % (15.3-44.8); MPV 8.9 fL (7.6-11.3); RBC Red Blood Cell Count 4.92 M/uL (4.33-5.43)
[2021-03-31 11:35] LABS: Potassium 4.2 mmol/L (3.5-5.1)
--- NOTE | 2021-03-31 11:37 | RAD REPORT ---
EXAM DESCRIPTION: CT - CTHCSPWOC - 03/31/2021 10:54 am CLINICAL HISTORY: PAIN COMPARISON: Head C Spine Mpr Wo Con dated 07/28/2019 TECHNIQUE: Axial 5 mm thick images of the head were obtained. Axial 2 mm thick images of the cervic al spine were obtained with sagittal and coronal reconstruction images generated and reviewed. All CT scans are performed using dose optimization technique as appropriate and may include automated exposure control or mA/KV adjustment according to patient size. FINDINGS: No intracranial hemorrhage, mass, edema or acute intracranial finding. No suspicion for ac guzman infarction. No extra-axial fluid collections. Paranasal sinuses are clear. No globe or orbit abno rmality seen. Right-side mastoid air cells and middle ear clear. There is complete opacification of the left mastoid air cells and partial opacification of the middle here. Debris is seen in the external auditory canal. Patient detailed a history of some sort of tube put in to the left ear with CSF drainage. No tubing or device evident on this study. No cortical dis ruption or other finding to indicate communication with the CSF spaces. Cervical body height and alignment are normal. No disk space narrowing. No fracture or acute bony abn ormality. Central canal detail is inherently limited. No paraspinal mass or hematoma. IMPRESSION: No pneumocephalus, mass, hemorrhage or other acute intracranial finding. Intracranial fi ndings are not clearly different from 2019 comparison. Complete opacification of the left side mastoid air cells and partial opacification of the middle her e. Patient detailed left ear procedure resulting in CSF drainage. There is no bone disruption, pneumocep halus or other finding that would identify possible site of communication with the CSF spaces. Negative CT cervical spine examination for acute or significant finding.
[2021-03-31] MEDS ORDERED: ONDANSETRON 4 MG/2 ML VIAL ONE (11:44)
[2021-03-31] MEDS ORDERED: NA CHLORIDE 0.9% 1,000 ML ONE (11:44)
[2021-03-31] MEDS ORDERED: MORPHINE 4 MG/ML SYR ONE (11:44)
--- NOTE | 2021-03-31 12:09 | ER ---
Nurse's Notes [facility] Name: Terry Akins Sr Age: 40 yrs Sex: Male : 1980 Arrival Date: 03/31/2021 Time: 09:46 Bed DIS2 Private MD: John Vazquez Diagnosis: Otitis media, unspecified, left ear;Headache Presentation: 03/31 09:54 Chief complaint: Patient states: head ache. Coronavirus screen: Client denies travel da3 out of the [place] in the last 14 days. Ebola Screen: No symptoms or risks identified at this time. Risk Assessment: Do you want to hurt yourself or someone else? Patient reports no desire to harm self or others. 09:54 Method Of Arrival: Ambulatory da3 09:54 Acuity: SARITHA 3 da3 12:40 Initial Sepsis Screen: Does the patient meet any 2 criteria? No. Patient's initial ll1 sepsis screen is negative. Does the patient have a suspected source of infection? Yes: Other: ear infection. Onset of symptoms is unknown. Triage Assessment: 09:59 Headache History: The patient has had previous headaches and this one is similar to da3 previous episodes. 12:40 Pain: Pain currently is 10 out of 10 on a pain scale. Pain began 2-3 days ago. Also ll1 complains of no other associated symptoms. Historical: - Allergies: 12:40 No Known Allergies; ll1 - PMHx: 12:40 carpal tunnel; GERD; Hypertension; ll1 - Immunization history:: Client reports having NOT received the Covid vaccine. - Social history:: Smoking status: unknown. Screenin:39 Abuse screen: Denies threats or abuse. Nutritional screening: No deficits noted. ll1 Tuberculosis screening: No symptoms or risk factors identified. Fall Risk Total Moss Fall Scale indicates No Risk (0-24 pts). Assessment: 11:25 General: Appears uncomfortable, Behavior is calm, cooperative, appropriate for age. ll1 Pain: Complains of pain in L head Quality of pain is described as aching, throbbing. Neuro: Level of Consciousness is awake, alert, obeys commands, Oriented to person, place, time, situation, Appropriate for age Playground Equipment Erector are equal bilaterally Moves all extremities. Full function Gait is steady, Speech is normal, Facial symmetry appears normal, Reports headache. Cardiovascular: No deficits noted. Respiratory: No deficits noted. 12:53 Reassessment: Upon discharge pt became agitated, demanding the provider prescribe him jl7 hydrocodone for home. Informed pt that the ER providers cannot prescribe hydrocodone. Pt states "I'll just check back in if my head still hurts." Pt discharged and ambulated out of ER with steady gate. Vital Signs: 09:57 BP 167 / 105; Pulse 85; Resp 18; Temp 98; Pulse Ox 98% on R/A; da3 ED Course: 09:46 Patient arrived in ED. as 09:46 John Vazquez DO is Private Physician. as 09:56 Triage completed. da3 10:45 Rain Stevens FNP-C is PHCP. kb 10:45 Stephane Rizvi MD is Attending Physician. kb 10:54 CT Head C Spine In Process Unspecified. EDMS 11:02 Initial lab(s) drawn, by me, sent to lab. Inserted saline lock: 20 gauge in left dh3 antecubital area, using aseptic technique. Blood collected. 12:23 Anand Badillo, RN is Primary Nurse. ll1 12:39 Arm band placed on Patient placed in a hallway bed, in a wheelchair. ll1 12:40 No provider procedures requiring assistance completed. ll1 12:40 Patient has correct armband on for positive identification. Bed in low position. Call ll1 light in reach. Cardiac monitoring not applicable on this patient. 12:53 IV discontinued, intact, bleeding controlled, No redness/swelling at site. Pressure jl7 dressing applied. Administered Medications: 11:28 Drug: NS 0.9% 1000 ml Route: IV; Rate: 1000 ml; Site: left antecubital; ll1 12:35 Follow up: Response: No adverse reaction; IV Status: Completed infusion; IV Intake: ll1 1000ml 11:28 Drug: Zofran (Ondansetron) 4 mg Route: IVP; Site: left antecubital; ll1 12:35 Follow up: Response: No adverse reaction ll1 11:28 Drug: morphine 4 mg Route: IVP; Site: left antecubital; ll1 12:35 Follow up: Response: No adverse reaction ll1 12:35 Drug: [place] (HYDROcodone-acetaminophen) 10 mg-325 mg 1 tabs Route: PO; ll1 12:35 Drug: Ketorolac 30 mg Route: IVP; Site: left antecubital; ll1 Intake: 12:35 IV: 1000ml; Total: 1000ml. ll1 Outcome: 12:08 Discharge ordered by . tony 12:53 Discharged to home ambulatory. jl7 12:53 Condition: stable 12:53 Discharge instructions given to patient, Instructed on discharge instructions, follow up and referral plans. medication usage, Demonstrated understanding of instructions, follow-up care, medications, Prescriptions given X 1. 12:58 Patient left the ED. jl7 Signatures: Dispatcher [employer] EDMS Rain Stevens, ICER HAND-C ICER HAND-Zoya Amaral Jahala, RN RN jl7 Liz[address] Lynsay, RN RN ll1 Jamal Allen, RN RN da3
--- NOTE | 2021-03-31 12:09 | EDPHYS ---
Physician Documentation [facility] [place] [facility] Name: Terry Akins Sr Age: 40 yrs Sex: Male : 1980 Arrival Date: 03/31/2021 Time: 09:46 Bed DIS2 Private MD: [facility] ED Physician Stephane Rizvi HPI: 03/31 16:36 This 40 yrs old Black Male presents to ER via Ambulatory with complaints of Headache, kb High Blood Pressure. 16:36 The patient complains of pain to the left side of head. The patient describes the kb headache as constant. Onset: The symptoms/episode began/occurred yesterday. Associated signs and symptoms: The patient has no apparent associated signs or symptoms. Severity of symptoms: At its worst the pain was moderate, in the emergency department the pain is unchanged. Headache History: The patient has had previous headaches. The symptoms are alleviated by nothing. the symptoms are aggravated by nothing. The patient has not experienced similar symptoms in the past. The patient has not recently seen a physician. Historical: - Allergies: 12:40 No Known Allergies; ll1 - PMHx: 12:40 carpal tunnel; GERD; Hypertension; ll1 - Immunization history:: Client reports having NOT received the Covid vaccine. - Social history:: Smoking status: unknown. ROS: 16:35 Constitutional: Negative for fever, chills, and weight loss. kb 16:35 Neuro: Positive for headache. 16:35 All other systems are negative. Exam: 16:36 Constitutional: This is a well developed, well nourished patient who is awake, alert, kb and in no acute distress. Head/Face: Normocephalic, atraumatic. Eyes: Pupils equal round and reactive to light, extra-ocular motions intact. Lids and lashes normal. Conjunctiva and sclera are non-icteric and not injected. Cornea within normal limits. Periorbital areas with no swelling, redness, or edema. Cardiovascular: Regular rate and rhythm with a normal S1 and S2. No gallops, murmurs, or rubs. No pulse deficits. Respiratory: Respirations even and unlabored. No increased work of breathing, no retractions or nasal flaring. Skin: Warm, dry with normal turgor. Normal color. MS/ Extremity: Pulses equal, no cyanosis. Neurovascular intact. Full, normal range of motion. Neuro: Awake and alert, GCS 15, oriented to person, place, time, and situation. Moves all extremities. Normal gait. Psych: Awake, alert, with orientation to person, place and time. Behavior, mood, and affect are within normal limits. Vital Signs: 09:57 BP 167 / 105; Pulse 85; Resp 18; Temp 98; Pulse Ox 98% on R/A; da3 MDM: 10:45 Patient medically screened. kb 12:05 Data reviewed: vital signs, nurses notes. Data interpreted: Pulse oximetry: on room air kb is 98 %. Interpretation: normal. Counseling: I had a detailed discussion with the patient and/or guardian regarding: the historical points, exam findings, and any diagnostic results supporting the discharge/admit diagnosis, lab results, radiology results, the need for outpatient follow up, an ENT specialist, to return to the emergency department if symptoms worsen or persist or if there are any questions or concerns that arise at home. Physician consultation: Flower Ashford MD was contacted at 12:05, regarding consult, patient's condition, recommends outpatient treatment with levaquin for 14 days. States she has referred pt to a neuro for follow up and has coordinated that through the office. Pt is supposed to be waiting for a call for the appt time. . 03/31 10:46 Order name: CBC with Diff; Complete Time: 11:33 kb 03/31 10:46 Order name: Basic Metabolic Panel; Complete Time: 11:35 kb 03/31 10:45 Order name: CT Head C Spine; Complete Time: 11:38 kb 03/31 10:46 Order name: IV Start; Complete Time: 11:04 kb Administered Medications: 11:28 Drug: NS 0.9% 1000 ml Route: IV; Rate: 1000 ml; Site: left antecubital; ll1 12:35 Follow up: Response: No adverse reaction; IV Status: Completed infusion; IV Intake: ll1 1000ml 11:28 Drug: Zofran (Ondansetron) 4 mg Route: IVP; Site: left antecubital; ll1 12:35 Follow up: Response: No adverse reaction ll1 11:28 Drug: morphine 4 mg Route: IVP; Site: left antecubital; ll1 12:35 Follow up: Response: No adverse reaction ll1 12:35 Drug: [place] (HYDROcodone-acetaminophen) 10 mg-325 mg 1 tabs Route: PO; ll1 12:35 Drug: Ketorolac 30 mg Route: IVP; Site: left antecubital; ll1 Disposition: 14:47 Co-signature as Attending Physician, Stephane Rizvi MD I agree with the assessment and kdr plan of care. Disposition Summary: 03/31/21 12:08 Discharge Ordered Location: Home kb Condition: Stable kb Diagnosis - Otitis media, unspecified, left ear kb - Headache kb Followup: kb - With: Emergency Department - When: As needed - Reason: Worsening of condition Followup: kb - With: Private Physician - When: 2 - 3 days - Reason: Recheck today's complaints, Continuance of care, Re-evaluation by your physician Discharge Instructions: - Discharge Summary Sheet kb - Ear Drops, Adult kb - Otitis Media, Adult, [id number] kb Forms: - Medication Reconciliation Form kb - Thank You Letter kb - Antibiotic Education kb - Prescription Opioid Use kb - Work release form ll1 Prescriptions: - levofloxacin 500 mg Oral Tablet - take 1 tablet by ORAL route once daily for 14 days; 14 tablet; Refills: 0, kb Product Selection Permitted Signatures: Dispatcher [employer] EDMS Rain Stevens, DEREK-C STAFF PHYSICIAN-Stephane Murillo MD MD kdr Anand Badillo, RN RN ll1 Jamal Allen RN RN da3
[2021-03-31] MEDS ORDERED: KETOROLAC 30 MG/ML INJ ONE (12:50)
[2021-03-31] MEDS ORDERED: HYDROCODONE/APAP 10/325 TAB ONE (12:50)
[2021-03-31 13:06] VITALS: BP 167/105; TEMP 98; O2SAT 98
== END 2021-03-31 12:58 | disposition home or self-care (01) ==
LOC: ER 09:44
DX: H66.92 Otitis media, unspecified, left ear (principal); I10 Essential (primary) hypertension
CPT/HCPCS: 96361; 85025; 80048; 36415; 70450; 72125; 96375; 96374; 99284; J7030; J2405

== ENCOUNTER 2021-04-05 12:30 | Emergency (ER) | payer OTHER ==
--- OUTSIDE RECORDS SUMMARY | 2021-04-05 12:33 | XMS REPORT | Continuity of Care Document ---
:1980 Author Organization [facility] t Address [address] [place] [address] Care Team Providers Name Role Phone Asked, Pcp Primary Care Physician Unavailable KAMERON Attending Clinician Unavailable Doctor Unassigned, Name Attending Clinician Unavailable 1, Audio Sound Suite Attending Clinician Unavailable MONAE Attending Clinician Unavailable BENJA Attending Clinician Unavailable MARCIAL Attending Clinician Unavailable TAMMY Attending Clinician Unavailable KESHIA Attending Clinician Unavailable GONZALEZ Attending Clinician Unavailable BRADLEY Attending Clinician Unavailable Payers Payer Name Policy Type Policy Effective Expiration Source Number Date Date [facility] [id number] 2019 [facility]i ty of [facility]NAGED 00:00:00 [place] Me dical MEDICAIDCOMMUNITY Branch HEALTH CHOICE [id number]/13 020-[id number], [place] [address]Medicaid Problems Condition Condition Condition Status Onset Resolution [...] vomiting vomiting ity of [place] [facility] No known No known Disease Unive rs active active ity of problems problems [place] [facility] Allergies, Adverse Reactions, Alerts Allergy Allergy Status [...] Start Date Stop Date Quantity Comments Source Exposure to Not sure University of SARS-CoV-2 [place] [facility] (event) Branch Tobacco use and 2018-05-25 2018-05-25 Never used [facility] exposure 00:00:00 00:00:00 Alcohol intake 2018-05-25 2018-05-25 Current [facility] 00:00:00 00:00:00 non-drinker of alcohol (finding) History of 2018-04-25 Cigarette Smoker [facility] tobacco use 00:00:00 Sex Assigned At [birth year] [facility] 00:00:00 00:00:00 Smoking Status Start Date Stop Date Source Unknown if ever smoked Universit y [facility] Former smoker 2018-05-25 00:00:00 2018-05-25 00:00:00 [facility] Medications Ordered Filled Start Stop Current Ordering Indication Dosage Frequency Signature Comments Components Source Medication Medication Date Date Medication? Clinician (SIG) Name Name levoFLOXaci Yes TAKE 1 Univ ers n 750 mg 8-02 TABLET BY ity of tablet 00:00: MOUTH [place] 00 EVERY DAY Medical FOR 10 Branch DAYS CIPRODEX Yes INSTILL 4 Univ ers 0.3-0.1 % 7-20 DROPS IN ity of otic drops 00:00: LEFT EAR Norberto as 00 TWICE A Medical DAY FOR 10 Branch DAYS amoxicillin Yes TAKE 1 Univ ers -pot 6-09 TABLET BY ity of clavulanate 00:00: MOUTH [place] 1,000-62.5 00 TWICE A Medica l mg 12 hr DAY FOR 10 Branc h tablet DAYS ofloxacin Yes INSTILL 10 Un janette 0.3 % otic 6-09 DROPS IN ity o f drops 00:00: LEFT EAR [place] 00 TWICE A Medical DAY Branch butalbital- Yes TAKE 1 Univ ers aspirin-caf 5-25 CAPSULE BY it y of feine 00:00: MOUTH [place] 50-325-40 00 EVERY 4 Medical mg per HOURS PPA Branch capsule (MAX OF 6 CAPSULES DAILY) proMETHazin Yes TAKE 1 Univ ers e 25 mg 5-25 TABLET BY ity of tablet 00:00: MOUTH [place] 00 EVERY 6 Medical HOURS Branch NEEDED FOR NAUSEA SUMAtriptan Yes TAKE 1 Univ ers 25 mg 5-25 TABLET BY ity of tablet 00:00: MOUTH AT [place] 00 ONSET OF Medical MIGRAINE. Branch MAY REPEAT IN 2 HOURS IF NEEDED (MAX OF 8 DAILY) amoxicillin Yes TAKE 1 Univ ers -clavulanat 5-24 TABLET BY ity of e 875-125 00:00: MOUTH [place] mg per 00 EVERY 12 Medical tablet HOURS FOR Branch 10 DAYS Promethazin Promethazin 2020- No Norah [address] [facility] HCl e HCl 4-28 05-03 [place] [facility] needed [facility] 00:[facility]: [facility]:00 for n/v [facility] 00 :00 l Outpati ent Clinics ondansetron Yes [id number] 4mg Take 1 Univers (ZOFRAN 3-11 tablet by ity of ODT) 4 mg 00:00: mouth [place] disintegrat 00 every 8 Medic al ing tablet (eight) Branch hours as needed for Nausea and Vomiting (N/V). benzonatate Yes [id number] 200mg Take 1 Univers 200 mg 3-11 capsule by ity of capsule 00:00: mouth 3 [place] 00 (three) Medical times Branch daily as needed for Cough for up to 20 doses. ibuprofen Yes [id number] 600mg Take 1 U nivers 600 mg 3-11 tablet by ity of tablet 00:00: mouth [place] 00 every 6 Medical (six) Branch hours as needed for Pain (scale 4-6). SUMAtriptan SUMAtriptan Yes POURAN inject PRN Univers Succinate 6 Succinate 6 2-21 BENJA onset of ity of MG/0.5ML MG/0.5ML 00:00: M.D. [facility] Physici s Solution s Solution [...] MG Oral MG Oral 00:00: M.D. DAILY. [place] Tablet Tablet 00 Physici ans No known No [facility] No known [facility] Zofran Zofran Yes Norah [facility] [place] [facility] Losartan Losartan Yes Norah [address] Potassium-H Potassium-H [place] [facility] - CTZ CTZ [facility] Hydrocodone Hydrocodone Yes Norah [address] -Acetaminop -Acetaminop [place] as needed [facility] Adderall XR Adderall XR Yes Norah [address] [facility] [place] in the [facility] - morning [facility] Omeprazole Omeprazole Yes Norah [address] [place] 30 minutes [facility] - before [facility] morning l meal [facility] ent [facility] Dicyclomine Dicyclomine Yes Norah [address] HCl HCl [place] [facility] Immunizations Ordered Immunization Filled Immunization Date Status Commen ts Source Name Name Fluzone Quadrivalent 2018-06-03 Completed Univ ersity of 0.5 ML Intramuscular 14:35:00 Moshe jansen Physicians Suspension Vital Signs Vital Name Observation Time Observation Value Comments Source BP Systolic 2018-10-02 155 mm[Hg] Location: [facility] :26:00 Position: [place] [facility] Sitting BP Diastolic 2018-10-02 88 mm[Hg] Location: [facility] :26:00 Position: [place] [facility] Sitting Height 2018-10-02 75 [in_us] [facility] 15:26:00 [place] [facility] s Weight 2018-10-02 302 [lb_av] [facility] 15:26:00 [place] [facility] s Body Mass Index 2018-10-02 37.75 kg/m2 [place] o f Calculated 15:26:00 [place] [facility] s Temperature 2018-10-02 98 [degF] Method: Oral [facility] 15:26:00 [place] [facility] Heart Rate 2018-10-02 63 /min Location: [facility] 15:26:00 Apical; [place] [facility] s BP Systolic 2018-09-25 154 mm[Hg] Location: [facility] ::00 Position: [place] [facility] s Sitting BP Diastolic 2018-09-25 98 mm[Hg] Location: [place]; [facility] ::00 Position: [place] [facility] s Sitting Heart Rate 2018-09-25 70 /min Quality: Normal University o f 10:26:00 [place] [facility] s BP Systolic 2018-09-25 169 mm[Hg] Location: [facility]; [facility] 10:25:00 Position: [place] [facility] s Sitting BP Diastolic 2018-09-25 65 mm[Hg] Location: [place]; [facility] 10::00 Position: [place] [facility]ician s Sitting Heart Rate 2018-09-25 67 /min Quality: Normal University o f 10:25:00 [place] [facility] s Height 2018-09-25 75 [in_us] University 10:25:00 [place] [facility] s Weight 2018-09-25 295 [lb_av] [facility] ::00 [place] [facility] s Body Mass Index 2018-09-25 36.87 kg/m2 University o f Calculated 10:25:00 [place] [facility] s Temperature 2018-09-25 98.3 [degF] Method: Oral University of 10:25:00 [place] [facility] s O2 SAT 2018-09-25 99 % University of 10::00 [place] [facility] BP Systolic 2018-06-03 136 mm[Hg] Location: [facility] :: Position: [place] [facility] s Sitting BP Diastolic 2018-06-03 75 mm[Hg] Location: [place]; [facility] :: Position: [place] [facility] s Sitting Height 2018-06-03 75 [in_us] University ::00 [place] [facility] s Weight 2018-06-03 317 [lb_av] University of :: [place] [facility] s Body Mass Index 2018-06-03 39.62 kg/m2 University o f Calculated 14:09:00 [place] [facility] s Temperature 2018-06-03 97.9 [degF] Method: Oral University of 14:: [place] [facility] Heart Rate 2018-06-03 74 /min University of 14:09:00 [place] [facility] s Procedures Procedure Date / Time Performing Clinician Source Performed REFERRAL- REQUEST/RESPONSE 2021-03-30 05:01:00 Doctor Unassigned , [facility] [U] XRAY KNEE 4 OR MORE 2018-07-24 00:00:00 [facility] VWS RIGHT [id number] Physicians Emg/Ncv 2018-06-20 00:00:00 [facility] Physicians [facility] Sleep Lab - Sleep 2018-06-03 00:00:00 [facility] Study Split Night Physicians History of Cubital tunnel [facility] repair Physicians History of Appendectomy [facility] Physicians History of Wrist surgery [facility] Physicians History of [employer] [facility] [place] Hemorrhoidectomy Physicians Plan of Care Planned Activity Planned Date Details Comments Source Diagnostic Test 2018-06-20 Emg/Ncv [code = [facility] Pending 00:00:00 Emg/Ncv] Physicians Diagnostic Test 2018-06-20 Emg/Ncv [code = [facility] Pending 00:00:00 Emg/Ncv] Physicians Future Scheduled COVID-[address] [facility] Test (1) [code = COVID-19 VACCINE (1)] Future Scheduled [facility] screening (procedure) [code = 781705017] Future Scheduled INFLUENZA VACCINE [facility] [code = INFLUENZA VACCINE] Future Scheduled [facility]INE [facility] [code = INFLUENZA VACCINE] Future Scheduled COVID-[address] [facility] Test (1) [code = COVID-19 VACCINE (1)] Future Scheduled [facility] Test screening (procedure) [code = 791178420] Encounters Start End Encounter Admission Attending Care Care Encounter Source Date/Time Date/Time Type Type Clinicians Facility Department ID 2021-04-03 [facility] [id number] [place] 11:27:45 JUNIOR Healdeo 2021-03-31 2021-03-31 Outpatient [facility] [id number] [facility] St 00:00:00 00:00:00 [facility] Out[facility] Clinics 2021-03-30 2021-03-30 Orders Doctor AICHA [id number] 00:00:00 00:00:00 Only Unassigned, ABDULKADIR [id number] [facility] [id number] 2021-03-30 2021-03-30 Orders Doctor AICHA [id number] Univers 00:00:00 00:00:00 Only Unassigned, ABDULKADIR [id number] ity of [facility] [id number] [place] as [id number] [place] [address] Branch 2021-03-21 2021-03-21 Ancillary 1, [facility] [id number] 14:21:34 15:15:15 Visit Audio Sound Y [id number] [facility] [id number] BANK [id number] BLDG. [id number] 2020-07-20 2020-07-20 [facility] [id number] 2020-07-12 2020-07-12 [facility] [id number] [facility] 2020-05-23 2020-05-23 [facility] [id number] [facility] 2020-02-24 2020-02-24 [facility] [id number] 14:42:00 14:42:00 t [employer] [place] [facility] Medicine l Medicine Outpati ent Clinics 2020-02-22 2020-02-22 [facility] [id number] 13:51:00 13:51:00 t [facility] [employer] [facility] Medicine l Medicine Outpati ent Clinics 2019-12-10 2019-12-10 [facility] [id number] 15:39:00 15:39:00 t [facility] [employer] [facility] Medicine l Medicine Outpati ent Clinics 2019-12-08 2019-12-08 [facility] [id number] 13[facility]40[facility]00 13:40[facility]00 [facility] Medicine l Medicine Outpati ent Clinics 2019-12-07 2019-12-07 [facility] [id number] 12:05:00 12:05:00 t [facility] ent Clinics 2019-11-16 2019-11-16 [facility] [id number] 11:00:00 11:00:00 t [facility] 2019-09-29 2019-09-29 [facility] [id number] 09:21:00 09:21:00 t [facility] ent Clinics 2019-09-21 2019-09-21 [facility] [id number] 14:00:00 14:00:00 t [facility] ent [facility] 2019-03-13 2019-03-13 Appointmen EUNICE LICONA [id number] Univers 09:00:00 09:00:00 t; Lesa RODRIGUEZ [place] NANCY, Physici M.D. [facility] 2018-10-02 2018-10-02 Appointmen EUNICE YOUSIF [id number] Univers 15:00:00 15:00:00 t; Asher JONES M.D. [place] Valery JONES M.D. [facility] 2018-09-25 2018-09-25 Appointmen EUNICE CEJA [facility] [id number] Univers 10:30:00 10:30:00 t; BRANT CEJA NP Health and itIvan NP Wellness [facility] Valery Scott [facility] 2018-09-22 2018-09-22 Appointmen EUNICE YOUSIF [id number] Univers 15:30:00 15:30:00 t; Asher JONES M.D. [place] Valery JONES M.D. [facility] 2018-08-22 2018-08-22 Appointmen EUNICE MUNOZ [id number] Univers 09:30:00 09:30:00 t; Lesa BRYANT [place] GEOFF, Physici M.D. [facility] 2018-07-29 2018-07-29 App[facility] [id number] Univers 14:30:00 14:30:00 t; Lesa BRYANT of [place], [place] Valery BRYANT M.D. ans 2018-07-25 2018-07-25 [facility] [id number] Univers 10:30:00 10:30:00 t; Lesa BRITT at [facility] [place], [place] Valery BRITT M.D. ans 2018-07-22 2018-07-22 [facility] [id number] Univers 11:15:00 11:15:00 t; [facility], Orthopedics Norberto as Valery BRYANT M.D. ans 2018-07-15 2018-07-15 [facility] [id number] Univers 10:30:00 10:30:00 t; Lesa BRYANT [facility] Norberto as Valery BRYANT M.D. ans 2018-07-09 2018-07-09 [facility] [id number] Univers 13:00:00 13:00:00 t; Lesa BRYANT [place], [place] Valery BRYANT M.D. ans 2018-06-30 2018-06-30 [facility] [id number] Univers 10:15:00 10:15:00 t; Lesa BRYANT [facility], Orthopedics Norberto as Valery BRYANT M.D. ans 2018-06-20 2018-06-20 [facility] [id number] Univers 13:40:00 13:40:00 t; SHANE MONROE [facility], Orthopedics T su MONROE NP Physi ci ans 2018-06-19 2018-06-19 [facility] [id number] Univers 08:15:00 08:15:00 t; SERJIO HUERTA D.O. ity of [facility] Mirna Romo Physici ans 2018-06-17 2018-06-17 Appointmen [place] [id number] Univers 15:45:00 15:45:00 t; Lesa BRYANT [facility] narayan TAMMY, Orthopedics Norberto as Valery BRYANT M.D. ans 2018-06-03 2018-06-03 Appointmen JOEEUNICE AWAN [facility] [id number] Univers 13:45:00 13:45:00 t; SERJIO HUERTA D.O. [place], [place] Clarissa Physicsp ans Results Test Description Test Time Test Comments Results Result Sour e Comments [U] XRAY ELBOW 2 2018-06-17 Images Universi ty of VWS RIGHT [id number] 15:57:00 acquired, not [place] reported on Physicians this accession number. [U] XRAY WRIST 2018-06-17 Images University of [facility] 3 VWS RIGHT 15:57:00 acquired, not [place] [id number] reported on Physicians this accession number.
[2021-04-05] MEDS ORDERED: NA CHLORIDE 0.9% 500 ML ONE ×2 (15:41→17:19)
[2021-04-05] MEDS ORDERED: ASPIRIN 81 MG CHEWABLE TABLET ONE ×2 (15:41→17:19)
--- NOTE | 2021-04-05 15:46 | RAD REPORT ---
EXAM DESCRIPTION: RAD - Chest Single View - 04/05/2021 3:40 pm CLINICAL HISTORY: CHEST PAIN Chest pain. COMPARISON: Chest Single View dated 02/23/2020; Chest Single View dated 04/12/2019 FINDINGS: Portable technique limits examination quality. The lungs are grossly clear. The heart is normal in size. No displaced fractures. IMPRESSION: No acute intrathoracic process suspected.
[2021-04-05 15:48] LABS: Protime INR 1.07
[2021-04-05 15:52] LABS: Absolute Lymphocytes (CBC) 0.2 K/uL (0.7-4.9); Basophils % 0.2 % (0-1.3); Hematocrit 42.4 % (39.6-49.0); RBC Red Blood Cell Count 5.07 M/uL (4.33-5.43)
[2021-04-05 16:04] LABS: ALT/SGPT 36 U/L (12-78); AST/SGOT 13 U/L (15-37); Alkaline Phosphatase 103 U/L (45-117); BUN Blood Urea Nitrogen 13 mg/dL (7-18); Bicarbonate 28 mmol/L (21-32); Bilirubin Direct 0.1 mg/dL (0-0.2); Bilirubin Total 0.4 mg/dL (0.2-1.0); Glucose Level 106 mg/dL (74-106); Magnesium 1.8 mg/dL (1.8-2.4); NT PRO-BNP 117 pg/mL (<125); Potassium 3.6 mmol/L (3.5-5.1); Protein, Total 7.6 g/dL (6.4-8.2); Sodium Level 137 mmol/L (136-145); Troponin (Emerg Dept Use Only) < 0.02 ng/mL (0.0-0.045)
[2021-04-05] MEDS ORDERED: ACETAMINOPHEN 325 MG TABLET ONE (16:07)
[2021-04-05] MEDS ORDERED: ONDANSETRON 4 MG/2 ML VIAL ONE ×2 (16:08→19:13)
--- NOTE | 2021-04-05 16:40 | RAD REPORT ---
EXAM DESCRIPTION: CT - Chest For Pe Angio - 04/05/2021 4:33 pm CLINICAL HISTORY: Chest pain. CHEST PAIN COMPARISON: No comparisons TECHNIQUE: CT angiogram of the pulmonary arteries was performed with MIP. All CT scans are performed using dose optimization technique as appropriate and may include automated exposure control or mA/KV adjustment according to patient size. FINDINGS: No evidence of pulmonary thromboembolism. No acute aortic finding demonstrated. Small 18 mm ground-glass opacity in the left upper lobe is noted. This may be related to pulmonary in fection. No significant pericardial or pleural fluid. No concerning bony finding. IMPRESSION: No evidence of pulmonary thromboembolism. Small focus of ground-glass opacity in the left upper lobe may be related to pulmonary infection.
--- NOTE | 2021-04-05 16:44 | ER ---
Nurse's Notes [facility] Name: Terry Akins Sr Age: 40 yrs Sex: Male : 1980 Arrival Date: 04/05/2021 Time: 12:56 Bed 12 Private MD: Diagnosis: Coronavirus infection, unspecified;Fever, unspecified;Chest pain, unspecified;Chest pain on breathing Presentation: 04/05 13:04 Chief complaint: Patient states: "COVID". Body aches, chills and generally not feeling ss well that began Saturday. Pt believes he may have covid. Denies fever. Coronavirus screen: Client presents with at least one sign or symptom that may indicate coronavirus-19. Ebola Screen: Patient denies exposure to infectious person. Patient denies travel to an Ebola-affected area in the 21 days before illness onset. Initial Sepsis Screen: Does the patient meet any 2 criteria? No. Patient's initial sepsis screen is negative. Does the patient have a suspected source of infection? No. Patient's initial sepsis screen is negative. Risk Assessment: Do you want to hurt yourself or someone else? Patient reports no desire to harm self or others. Onset of symptoms was April 03, 2021. 13:04 Method Of Arrival: Ambulatory ss 13:04 Acuity: SARITHA 4 ss Triage Assessment: 15:34 General: Appears in no apparent distress. Behavior is calm, cooperative, appropriate kg for age, quiet. Pain:. Historical: - Allergies: 13:05 No Known Allergies; ss - Home Meds: 13:05 None [Active]; ss - PMHx: 13:05 carpal tunnel; GERD; Hypertension; Hypertensive disorder; ss - Immunization history:: Client reports having NOT received the Covid vaccine. - Social history:: Smoking status: Reported history of juuling and/or vaping. - Family history:: not pertinent. Screenin:34 Abuse screen: Denies threats or abuse. Denies injuries from another. Nutritional kg screening: No deficits noted. Tuberculosis screening: No symptoms or risk factors identified. Fall Risk None identified. Assessment: 15:15 General: Appears uncomfortable, Behavior is calm, cooperative, appropriate for age, kg quiet. Pain: Complains of pain in Head Pain radiates to Generalized Pain currently is 10 out of 10 on a pain scale. Neuro: No deficits noted. Cardiovascular: No deficits noted. Respiratory: No deficits noted. GI: Reports nausea. : No deficits noted. EENT: No deficits noted. Derm: No deficits noted. Musculoskeletal: No deficits noted. Vital Signs: 13:04 Pulse 105; Resp 18; Pulse Ox 99% on R/A; Weight 86.18 kg; Height 6 ft. 3 in. (190.50 ss cm); Pain 10/10; 13:06 BP 162 / 91; ss 13:06 Temp 99.8(O); ss 16:00 BP 139 / 73; Pulse 74; Resp 21; Pulse Ox 98% on R/A; kg 17:00 BP 143 / 92; Pulse 98; Resp 20; Pulse Ox 98% on R/A; kg 17:15 BP 142 / 92; Pulse 89; Resp 20; Pulse Ox 99% on R/A; kg 17:35 BP 149 / 75; Pulse 86; Resp 20; Pulse Ox 99% ; kg 17:45 BP 139 / 69; Pulse 71; Resp 20; Pulse Ox 100% on R/A; kg 18:00 BP 145 / 79; Pulse 84; Resp 20; Pulse Ox 100% on R/A; kg 18:15 BP 151 / 83; Pulse 66; Resp 20; Pulse Ox 97% on R/A; kg 18:50 BP 144 / 82; Pulse 82; Resp 20; Pulse Ox 100% on R/A; kg 19:15 BP 135 / 73; Pulse 77; Resp 20; Pulse Ox 97% ; kg 19:30 BP 129 / 64; Pulse 76; Resp 20; Pulse Ox 98% on R/A; kg 13:04 Body Mass Index 23.75 (86.18 kg, 190.50 cm) ss ED Course: 12:56 Patient arrived in ED. as 13:05 Triage completed. ss 13:05 Arm band placed on right wrist. ss 14:58 Talon Whitt MD is Attending Physician. sin 15:13 Nancy Wolff, BRYN is Primary Nurse. kg 15:22 XRAY Chest (1 view) Sent. kg 15:25 Inserted saline lock: 20 gauge in left antecubital area, using aseptic technique. Blood kg collected. 15:31 NT PRO-BNP Sent. kg 15:31 Magnesium Sent. kg 15:31 CBC with Automated Diff Sent. kg 15:31 Liver (Hepatic) Function Sent. kg 15:31 Basic Metabolic Panel Sent. kg 15:31 Basic Metabolic Panel Sent. kg 15:31 CBC with Diff Sent. kg 15:31 Magnesium Sent. kg 15:31 LFT's Sent. kg 15:31 NT PRO-BNP Sent. kg 15:31 PT-INR Sent. kg 15:31 Troponin (emerg Dept Use Only) Sent. kg 15:40 XRAY Chest (1 view) In Process Unspecified. EDMS 16:32 CT Chest For PE Angio Sent. kg 16:33 CT Chest For PE Angio In Process Unspecified. EDMS 16:43 Chemo Sawyer MD is Referral Physician. sin 17:44 Patient has correct armband on for positive identification. kg 17:44 No provider procedures requiring assistance completed. kg 19:49 IV discontinued, intact, bleeding controlled, No redness/swelling at site. Pressure kg dressing applied. Administered Medications: 15:21 Drug: Aspirin 162 mg Route: PO; kg 15:36 Follow up: Response: No adverse reaction kg 15:31 Drug: NS 0.9% 500 ml Route: IV; Rate: bolus; Site: left antecubital; kg 16:00 Follow up: Response: No adverse reaction; IV Status: Completed infusion; IV Intake: kg 500ml 15:35 Drug: Rocephin (cefTRIAXone) 1 grams Route: IV; Rate: per protocol; Site: left kg antecubital; 15:40 Follow up: Response: No adverse reaction; IV Status: Completed infusion; IV Intake: 10mlkg 15:40 Drug: Tylenol 650 mg Route: PO; kg 18:39 Follow up: Response: No adverse reaction kg 15:40 Drug: Zofran (Ondansetron) 4 mg Route: IVP; Site: left antecubital; kg 18:39 Follow up: Response: No adverse reaction kg 16:48 Drug: NS 0.9% 1000 ml Route: IV; Rate: 125 ml/hr; Site: left antecubital; kg 19:10 Follow up: Response: No adverse reaction; IV Status: Completed infusion kg 17:30 Drug: Pepcid (famotidine) 40 mg Route: IVP; Site: left antecubital; kg 18:38 Follow up: Response: No adverse reaction kg 17:30 Drug: Aspirin Chewable Tablet 162 mg Route: PO; kg 18:38 Follow up: Response: No adverse reaction kg 17:36 Drug: Zithromax (azithromycin) 500 mg Route: PO; kg 18:38 Follow up: Response: No adverse reaction kg 17:43 Drug: REGEN-COV Dose Pack 120 mg/mL-120 mg/mL (EUA) 1 vials Route: IV; Rate: 1 per kg protocol; Site: left antecubital; 18:48 Follow up: Response: No adverse reaction; IV Status: Completed infusion; IV Intake: kg 260ml 18:55 Drug: Zofran (Ondansetron) 4 mg Route: IVP; Site: left antecubital; kg 18:56 Follow up: Response: No adverse reaction kg 18:56 Drug: morphine 4 mg Route: IVP; Site: left antecubital; kg 18:56 Follow up: Response: No adverse reaction kg Intake: 15:40 IV: 10ml; Total: 10ml. kg 16:00 IV: 500ml; Total: 510ml. kg 18:48 IV: 260ml; Total: 770ml. kg Outcome: 16:44 Discharge ordered by MD. vogt 19:49 Discharged to home ambulatory. kg 19:49 Condition: improved 19:49 Discharge instructions given to patient, Instructed on discharge instructions, follow up and referral plans. Demonstrated understanding of instructions, follow-up care, medications, Prescriptions given X 4. 20:00 Patient left the ED. kg Signatures: Dispatcher [employer] EDMS Talon Whitt MD MD cha Martinez, Amelia as Smirch, Shelby, RN RN Nancy Wolff RN RN kg Corrections: (The following items were deleted from the chart) 15:58 15:51 CORONAVIRUS+MR.LAB.BRZ drawn and sent. kg EDMS
--- NOTE | 2021-04-05 16:45 | EDPHYS ---
Physician Documentation [facility] Name: Terry Akins Sr Age: 40 yrs Sex: Male : 1980 Arrival Date: 04/05/2021 Time: 12:56 Bed 12 Private MD: ED Physician Talon Whitt HPI: 04/05 16:33 This 40 yrs old Black Male presents to ER via Ambulatory with complaints of Weakness, sin Chest Tightness. 16:33 The patient or guardian reports chest pain that is located primarily in the substernal sin area. Onset: 2 day(s) ago. The pain does not radiate. Associated signs and symptoms: Pertinent positives: cough, shortness of breath. The chest pain is described as a pressure. Duration: The patient or guardian reports multiple episodes, with no pattern. Modifying factors: The symptoms are alleviated by nothing. the symptoms are aggravated by nothing. Severity of pain: At its worst the pain was moderate in the emergency department the pain is unchanged. Historical: - Allergies: 13:05 No Known Allergies; ss - Home Meds: 13:05 None [Active]; ss - PMHx: 13:05 carpal tunnel; GERD; Hypertension; Hypertensive disorder; ss - Immunization history:: Client reports having NOT received the Covid vaccine. - Social history:: Smoking status: Reported history of juuling and/or vaping. - Family history:: not pertinent. ROS: 16:33 Constitutional: Negative for fever, chills, and weight loss, Eyes: Negative for injury, sin pain, redness, and discharge, ENT: Negative for injury, pain, and discharge, Neck: Negative for injury, pain, and swelling, Abdomen/GI: Negative for abdominal pain, nausea, vomiting, diarrhea, and constipation, Back: Negative for injury and pain, : Negative for injury, bleeding, discharge, and swelling, MS/Extremity: Negative for injury and deformity, Skin: Negative for injury, rash, and discoloration, Neuro: Negative for headache, weakness, numbness, tingling, and seizure, Psych: Negative for depression, anxiety, suicide ideation, homicidal ideation, and hallucinations, Allergy/Immunology: Negative for hives, rash, and allergies, Endocrine: Negative for neck swelling, polydipsia, polyuria, polyphagia, and marked weight changes, Hematologic/Lymphatic: Negative for swollen nodes, abnormal bleeding, and unusual bruising. 16:33 Constitutional: Positive for chills, fatigue, fever. 16:33 Cardiovascular: Positive for chest pain, of the chest. Exam: 16:33 Constitutional: This is a well developed, well nourished patient who is awake, alert, sin and in no acute distress. Head/Face: Normocephalic, atraumatic. Eyes: Pupils equal round and reactive to light, extra-ocular motions intact. Lids and lashes normal. Conjunctiva and sclera are non-icteric and not injected. Cornea within normal limits. Periorbital areas with no swelling, redness, or edema. ENT: Nares patent. No nasal discharge, no septal abnormalities noted. Tympanic membranes are normal and external auditory canals are clear. Oropharynx with no redness, swelling, or masses, exudates, or evidence of obstruction, uvula midline. Mucous membranes moist. Neck: Trachea midline, no thyromegaly or masses palpated, and no cervical lymphadenopathy. Supple, full range of motion without nuchal rigidity, or vertebral point tenderness. No Meningismus. Chest/axilla: Normal chest wall appearance and motion. Nontender with no deformity. No lesions are appreciated. Respiratory: Lungs have equal breath sounds bilaterally, clear to auscultation and percussion. No rales, rhonchi or wheezes noted. No increased work of breathing, no retractions or nasal flaring. 16:33 Abdomen/GI: Inspection: distension, Bowel sounds: normal, Palpation: nontender, Liver: no appreciated palpable abnormalities, Hernia: not appreciated. 16:49 ECG was reviewed by the Attending Physician. [facility] Vital Signs: 13:04 Pulse 105; Resp 18; Pulse Ox 99% on R/A; Weight 86.18 kg; Height 6 ft. 3 in. (190.50 ss cm); Pain 10/10; 13:06 BP 162 / 91; ss 13:06 Temp 99.8(O); ss 16:00 BP 139 / 73; Pulse 74; Resp 21; Pulse Ox 98% on R/A; kg 17:00 BP 143 / 92; Pulse 98; Resp 20; Pulse Ox 98% on R/A; kg 17:15 BP 142 / 92; Pulse 89; Resp 20; Pulse Ox 99% on R/A; kg 17:35 BP 149 / 75; Pulse 86; Resp 20; Pulse Ox 99% ; kg 17:45 BP 139 / 69; Pulse 71; Resp 20; Pulse Ox 100% on R/A; kg 18:00 BP 145 / 79; Pulse 84; Resp 20; Pulse Ox 100% on R/A; kg 18:15 BP 151 / 83; Pulse 66; Resp 20; Pulse Ox 97% on R/A; kg 18:50 BP 144 / 82; Pulse 82; Resp 20; Pulse Ox 100% on R/A; kg 19:15 BP 135 / 73; Pulse 77; Resp 20; Pulse Ox 97% ; kg 19:30 BP 129 / 64; Pulse 76; Resp 20; Pulse Ox 98% on R/A; kg 13:04 Body Mass Index 23.75 (86.18 kg, 190.50 cm) ss MDM: 14:58 Patient medically screened. sin 16:36 Differential diagnosis: abnormal EKG, acute myocardial infarction, anxiety, chest wall sin pain, congestive heart failure hiatal hernia, pancreatitis, pneumonia, pulmonary embolus, stable angina, unstable angina. HEART Score: History: Slightly Suspicious (0), ECG: Non specific repolarization disturbance / LBTB / PM (1), Age: < or = 45 years (0), Risk Factors: > or = 3 Risk factors for atherosclerotic disease (2), [Hypertension] [+ Family HX] [Obesity] Troponin: < or = 1 x Normal Limit (0), Total Score = 3. The patient was given aspirin in the Emergency Department. The patient's deep vein thrombosis risk score was calculated as follows: Total Score: 0. This patient was found to be at low risk for a deep vein thrombosis by using the Well's assessment criteria. The patient's pulmonary embolism risk score was calculated as follows: Total Score: 0-2 points. This patient was found to be at low risk for a pulmonary embolism by using the Well's assessment criteria. DESTINEY Risk Score: 1 - Three or more CAD risk factors, TOTAL SCORE = 2. Data reviewed: vital signs, nurses notes, lab test result(s), EKG, radiologic studies, CT scan, plain films. Data interpreted: property assessment monitor: rate is 105 beats/min, rhythm is regular, Pulse oximetry: on room air is 99 %. Test interpretation: by ED physician or midlevel provider: ECG, plain radiologic studies. Counseling: I had a detailed discussion with the patient and/or guardian regarding: the historical points, exam findings, and any diagnostic results supporting the discharge/admit diagnosis, lab results, radiology results. 04/05 14:59 Order name: Basic Metabolic Panel [facility] 04/05 14:59 Order name: CBC with Diff [facility] 04/05 14:59 Order name: LFT's [facility] 04/05 14:59 Order name: Magnesium [facility] 04/05 14:59 Order name: NT PRO-BNP [facility] 04/05 14:59 Order name: PT-INR; Complete Time: 16:11 [facility] 04/05 14:59 Order name: Troponin (emerg Dept Use Only); Complete Time: 16:11 [facility] 04/05 14:59 Order name: D-Dimer; Complete Time: 16:11 [facility] 04/05 14:59 Order name: Basic Metabolic Panel; Complete Time: 16:11 [facility] 04/05 14:59 Order name: CBC with Automated Diff; Complete Time: 16:11 [facility] 04/05 14:59 Order name: Liver (Hepatic) Function; Complete Time: 16:11 [facility] 04/05 14:59 Order name: Magnesium; Complete Time: 16:11 [facility] 04/05 14:59 Order name: NT PRO-BNP; Complete Time: 16:11 [facility] 04/05 14:59 Order name: XRAY Chest (1 view); Complete Time: 16:11 [facility] 04/05 16:12 Order name: CT Chest For PE Angio; Complete Time: 16:48 [facility] 04/05 16:32 Order name: Flu; Complete Time: 18:48 [facility] 04/05 16:40 Order name: SARS-COV-2 RT PCR; Complete Time: 16:48 [facility] 04/05 14:59 Order name: EKG; Complete Time: 15:00 [facility] 04/05 14:59 Order name: Cardiac monitoring; Complete Time: 15:31 [facility] 04/05 14:59 Order name: EKG - Nurse/Tech; Complete Time: 16:32 [facility] 04/05 14:59 Order name: IV Saline Lock; Complete Time: 15:31 [facility] 04/05 14:59 Order name: Labs collected and sent; Complete Time: 15:31 [facility] 04/05 14:59 Order name: O2 Per Protocol; Complete Time: 15:31 [facility] 04/05 14:59 Order name: O2 Sat Monitoring; Complete Time: 15:31 sin EC:49 Rate is 98 beats/min. Rhythm is regular. QRS [place] is Normal. MS interval is normal. QRS sin interval is normal. QT interval is normal. No Q waves. T waves are Normal. No ST changes noted. Clinical impression: NSR w/ Non-specific ST/T Changes and No evidence of ischemia. Interpreted by me. Reviewed by me. Administered Medications: 15:21 Drug: Aspirin 162 mg Route: PO; kg 15:36 Follow up: Response: No adverse reaction kg 15:31 Drug: NS 0.9% 500 ml Route: IV; Rate: bolus; Site: left antecubital; kg 16:00 Follow up: Response: No adverse reaction; IV Status: Completed infusion; IV Intake: kg 500ml 15:35 Drug: Rocephin (cefTRIAXone) 1 grams Route: IV; Rate: per protocol; Site: left kg antecubital; 15:40 Follow up: Response: No adverse reaction; IV Status: Completed infusion; IV Intake: 10mlkg 15:40 Drug: Tylenol 650 mg Route: PO; kg 18:39 Follow up: Response: No adverse reaction kg 15:40 Drug: Zofran (Ondansetron) 4 mg Route: IVP; Site: left antecubital; kg 18:39 Follow up: Response: No adverse reaction kg 16:48 Drug: NS 0.9% 1000 ml Route: IV; Rate: 125 ml/hr; Site: left antecubital; kg 19:10 Follow up: Response: No adverse reaction; IV Status: Completed infusion kg 17:30 Drug: Pepcid (famotidine) 40 mg Route: IVP; Site: left antecubital; kg 18:38 Follow up: Response: No adverse reaction kg 17:30 Drug: Aspirin Chewable Tablet 162 mg Route: PO; kg 18:38 Follow up: Response: No adverse reaction kg 17:36 Drug: Zithromax (azithromycin) 500 mg Route: PO; kg 18:38 Follow up: Response: No adverse reaction kg 17:43 Drug: REGEN-COV Dose Pack 120 mg/mL-120 mg/mL (EUA) 1 vials Route: IV; Rate: 1 per kg protocol; Site: left antecubital; 18:48 Follow up: Response: No adverse reaction; IV Status: Completed infusion; IV Intake: kg 260ml 18:55 Drug: Zofran (Ondansetron) 4 mg Route: IVP; Site: left antecubital; kg 18:56 Follow up: Response: No adverse reaction kg 18:56 Drug: morphine 4 mg Route: IVP; Site: left antecubital; kg 18:56 Follow up: Response: No adverse reaction kg Disposition Summary: 04/05/21 16:44 Discharge Ordered Location: Home [facility] Problem: new [facility] Symptoms: have improved sin Condition: Stable sin Diagnosis - Coronavirus infection, unspecified sin - Fever, unspecified sin - Chest pain, unspecified sin - Chest pain on breathing sin Followup: sin - With: Private Physician - When: 2 - 3 days - Reason: Recheck today's complaints, Continuance of care, Re-evaluation by your physician Followup: sin - With: Chemo Sawyer MD - When: 2 - 3 days - Reason: Recheck today's complaints Discharge Instructions: - Discharge Summary Sheet sin - Nonspecific Chest Pain, Adult sin - Nonspecific Chest Pain, Adult, [id number] [facility] - Aspirin and Your Heart [facility] - COVID-19 [facility] Forms: - Medication Reconciliation Form [facility] - Thank You Letter [facility] - Antibiotic Education [facility] - Prescription Opioid Use [facility] Prescriptions: - albuterol sulfate 90 mcg/actuation Inhalation HFA aerosol inhaler - inhale 2 puff by INHALATION route every 6 hours; 1 Pump; Refills: 0, Product [facility] Selection Permitted - ivermectin 3 mg Oral tablet - take 6 tablet by ORAL route once daily; 30 tablet; Refills: 0, Product [facility] Selection Permitted - Pepcid 20 mg Oral Tablet - take 1 tablet by ORAL route every 12 hours for 10 days; 20 tablet; Refills: 0, [facility] Product Selection Permitted - Zithromax 500 mg Oral Tablet - take 1 tablet by ORAL route once daily for 5 days; 5 tablet; Refills: 0, [facility] Product Selection Permitted Signatures: Dispatcher [employer] EDMS Talon Whitt MD MD cha Smirch, Shelby, RN RN Nancy Wolff RN RN kg Corrections: (The following items were deleted from the chart) 15:58 15:36 CORONAVIRUS+BRZ ordered. EDIN EDMS
[2021-04-05] MEDS ORDERED: AZITHROMYCIN 250 MG TAB ONE (17:19)
[2021-04-05] MEDS ORDERED: CEFTRIAXONE/SWI 1gm 1 GM/10 ML SYR ONE ×2 (17:20→17:28)
[2021-04-05] MEDS ORDERED: CASIRIVIMAB/IMDEVIMAB 10 ML VIAL ONE (17:20)
[2021-04-05] MEDS ORDERED: FAMOTIDINE 20 MG/2 ML VIAL IV ONE (17:20)
[2021-04-05] MEDS ORDERED: KETOROLAC 30 MG/ML INJ ONE (17:21)
[2021-04-05] MEDS ORDERED: NA CHLORIDE 0.9% 250 ML ONE (17:29)
[2021-04-05] MEDS ORDERED: MORPHINE 4 MG/ML SYR ONE (19:12)
[2021-04-05 20:07] VITALS: TEMP 99.8
[2021-04-05 20:20] VITALS: BP 129/64; O2SAT 98
== END 2021-04-05 20:00 | disposition home or self-care (01) ==
LOC: ER 12:30
DX: U07.1 COVID-19 (principal); R50.9 Fever, unspecified; I10 Essential (primary) hypertension
CPT/HCPCS: 96365; 96361; 93005; 85025; 80048; 36415; 83735; 85610; 85379; 80076; 84484; 83880; 87804 ×2; 71275; 71045; 96375; 99284; U0003; Q9967; J0696 ×2; J7050; J7040 ×2; J2405 ×2

== ENCOUNTER 2021-04-14 03:16 | Emergency (ER) | payer OTHER ==
--- OUTSIDE RECORDS SUMMARY | 2021-04-14 03:20 | XMS REPORT | Continuity of Care Document ---
:1980 Author Organization [facility] t Address [address] [place] [address] Care Team Providers Name Role Phone Asked, Pcp Primary Care Physician Unavailable KAMERON Attending Clinician Unavailable Doctor Unassigned, Name Attending Clinician Unavailable 1, Audio Sound Suite Attending Clinician Unavailable SUSANN Attending Clinician Unavailable BENJA Attending Clinician Unavailable MARCIAL Attending Clinician Unavailable TAMMY Attending Clinician Unavailable KESHIA Attending Clinician Unavailable GONZALEZ Attending Clinician Unavailable BRADLEY Attending Clinician Unavailable Payers Payer Name Policy Policy Number Effective Expiration Source Type Date Date [facility] MEDICAID STAR [id number] 2018 00:00:00 [facility] [id number] 2019 Universi ty of [facility] - MANAGED 00:00:00 [place] Me dical MEDICAIDCOMMUNITY Branch HEALTH CHOICE [id number]/2019-Present[id number], [place] [address]Medicaid Problems Condition Condition Condition Status [...] rs active active ity of problems problems [place] [facility] Allergies, Adverse Reactions, Alerts Allergy [...] Comments Source Exposure to Not sure University SARS-CoV-2 [place] [facility] (event) Branch Tobacco use and 2018-05-25 2018-05-25 Never used [facility] exposure 00:00:00 00:00:00 Alcohol intake 2018-05-25 2018-05-25 Current [facility] 00:00:00 00:00:00 non-drinker of alcohol (finding) History of 2018-04-25 Cigarette Smoker [facility] tobacco use 00:00:00 Sex Assigned At [birth year] [facility] 00:00:00 00:00:00 Smoking Status Start Date Stop Date Source Unknown if ever smoked [facility] Former smoker 2018-05-25 00:00:00 2018-05-25 00:00:00 [facility] Medications Ordered Filled Start Stop Current Ordering [...] Medical HOURS Branch NEEDED FOR NAUSEA SUMAtriptan 2021-0 Yes TAKE 1 Univ ers 25 mg [...] :00 l Outpati ent Clinics ondansetron Yes [id number] 4mg Take 1 Univers (ZOFRAN 3-11 tablet by ity of ODT) 4 mg 00:00: mouth [place] disintegrat 00 every 8 Medic al ing tablet (eight) Branch hours as needed for Nausea and Vomiting (N/V). benzonatate Yes [id number] 200mg Take 1 Univers 200 mg 3-11 capsule by ity of capsule 00:00: mouth 3 [place] 00 (three) Medical times Branch daily as needed for Cough for up to 20 doses. ibuprofen Yes [id number] 600mg Take 1 U nivers 600 mg 3-11 tablet by ity of tablet 00:00: mouth [place] 00 every 6 Medical (six) Branch hours as needed for Pain (scale 4-6). SUMAtriptan SUMAtriptan Yes POURAN inject PRN Univers Succinate 6 Succinate 6 2-21 BENJA onset of ity of MG/0.5ML MG/0.5ML 00:00: M.D. the [place] Subcutaneou Subcutaneou 00 cluster Physici s Solution [...] 00 Physici Release Release ans amLODIPine amLODIPine 2017- Yes POURAN 1 QD TAKE 1 Univers Besylate 10 Besylate 10 0-23 BENJA TABLET ity of MG Oral MG Oral 00:00: M.D. DAILY. [place] Tablet Tablet 00 Physici ans Zofran Zofran Yes Norah 1 tablet [facility] [place] [facility] Losartan Losartan Yes Norah [address] Potassium-H Potassium-H [place] [facility] CT[facility] CTZ [facility]ics Hydrocodone Hydrocodone Yes Norah [address] -Acetaminop -Acetaminop [place] as needed [facility] ent [facility] Adderall XR Adderall XR Yes Norah [address] [facility] [address] [place] in the [facility]ics Omeprazole Omeprazole Yes Norah [address] [facility] [place] 30 minutes [facility] Dicyclomine Dicyclomine Yes Norah [address] HCl HCl [place] [facility] No known No [facility] No known No [facility] Immunizations Ordered Immunization Filled Immunization Date Status Commen ts Source Name Name Fluzone Quadrivalent 2018-06-03 Completed Univ ersity of 0.5 ML Intramuscular 14:35:00 [facility] Suspension Vital Signs Vital Name Observation Time Observation Value Comments Source BP Systolic 2018-10-02 155 mm[Hg] Location: [facility] ::00 Position: [place] Physician s Sitting BP Diastolic 2018-10-02 88 mm[Hg] Location: [facility] ::00 Position: [place] Physician s Sitting Height 2018-10-02 75 [in_us] [facility] 15::00 [place] [facility] s Weight 2018-10-02 302 [lb_av] [facility] :: [place] [facility]ician s Body Mass Index 2018-10-02 37.75 kg/m2 [place] o f Calculated 15:26:00 [place] Phys[facility] s Temperature 2018-10-02 98 [degF] Method: Oral [facility] ::00 [place] [facility] s Heart Rate 2018-10-02 63 /min Location: [facility] 15:26:00 Apical; [place] Physician s BP Systolic 2018-09-25 154 mm[Hg] Location: [place]; [facility] :: Position: [place] Physician s Sitting BP Diastolic 2018-09-25 98 mm[Hg] Location: [place]; [facility] ::00 Position: [place] Physician s Sitting Heart Rate 2018-09-25 70 /min Quality: Normal University o f 10:26:00 [place] Physician s BP Systolic 2018-09-25 169 mm[Hg] Location: [place]; [facility] 10::00 Position: [place] Physician s Sitting BP Diastolic 2018-09-25 65 mm[Hg] Location: [place]; [facility] ::00 Position: [place] Physician [...] 2018-09-25 98.3 [degF] Method: Oral University of 10::00 [place] Physician s O2 SAT 2018-09-25 99 % University of ::00 [place] Physician s BP Systolic 2018-06-03 136 mm[Hg] Location: [place]; [facility] :: Position: [place] Physician s Sitting BP Diastolic 2018-06-03 75 mm[Hg] Location: [place]; [facility] :: Position: [place] Physician s Sitting Height 2018-06-03 75 [in_us] University of ::00 [place] Physician s Weight 2018-06-03 317 [lb_av] University of :: [place] Physician s Body Mass Index 2018-06-03 39.62 kg/m2 University o f Calculated 14::00 [place] Physician s Temperature 2018-06-03 97.9 [degF] Method: Oral University of 14::00 [place] Physician s Heart Rate 2018-06-03 74 /min University of 14::00 [place] Physician s Procedures Procedure Date / Time Performing Clinician Source Performed REFERRAL- REQUEST/RESPONSE 2021-03-30 05:01:00 Doctor Unassigned , [facility] [place] [facility] [U] XRAY KNEE 4 OR MORE 2018-07-24 00:00:00 [facility] VWS RIGHT [id number] Physicians Emg/Ncv 2018-06-20 00:00:00 [place] o f [place] [facility] Sleep Lab - Sleep 2018-06-03 00:00:00 [facility] Study Split Night Physicians History of Cubital tunnel [facility] repair Physicians History of Appendectomy [facility] Physicians History of Wrist surgery Univers [facility] Physicians History of [facility] [place] Hemorrhoidectomy Physicians Plan of Care Planned Activity Planned Date Details Comments Source Diagnostic Test 2018-06-20 Emg/Ncv [code = [facility] Pending 00:00:00 Emg/Ncv] Physicians Diagnostic Test 2018-06-20 Emg/Ncv [code = [facility] Pending 00:00:00 Emg/Ncv] Physicians Future Scheduled COVID-[address] [facility] Test (1) [code = COVID-19 VACCINE (1)] Future Scheduled [facility] screening (procedure) [code = 316282082] Future Scheduled INFLUENZA VACCINE [facility] [code = INFLUENZA VACCINE] Future Scheduled COVID-[address] [facility] Test (1) [code = COVID-19 VACCINE (1)] Future Scheduled [facility] Test screening (procedure) [code = 516682309] Future Scheduled INFLUENZA VACCINE [facility] Test [code = INFLUENZA VACCINE] Encounters Start End Encounter Admission Attending Care Care Encounter Source Date/Time Date/Time Type Type Clinicians Facility Department ID 2021-04-03 [facility] [id number] [place] 11:27:45 [facility] 2021-04-06 2021-04-06 Outpatient [facility] [id number] [facility] 2021-04-06 2021-04-06 Outpatient [facility] [id number] [facility] 2021-03-31 2021-03-31 Outpatient [facility] [id number] [facility] 2021-03-30 2021-03-30 Orders Doctor AICHA [id number] 00:00:00 00:00:00 Only Unassigned, ABDULKADIR [id number] [place] [facility] [id number] 2021-03-30 2021-03-30 Orders Doctor AICHA [id number] Univers 00:00:00 00:00:00 Only Unassigned, ABDULKADIR [id number] ity of [place] [facility] [id number] Nor[place] as [id number] [facility] jose m 009 Branch 2021-03-21 2021-03-21 Ancillary 1, Gal UNIVERSIT [id number] 14:21:34 15:15:15 Visit Audio Sound Y [id number] [facility] [id number] [facility] [id number] [facility]. 141 2020-07-20 2020-07-20 [facility] [id number] 2020-07-12 2020-07-12 Outpatient [facility] [id number] [facility] 2020-05-23 2020-05-23 Outpatient [facility] [id number] [facility] 2020-02-24 2020-02-24 [facility] [id number] 14:42:00 14:42:00 [employer] [facility] Medicine l Medicine Outpati ent Clinics 2020-02-22 2020-02-22 [facility] [id number] 13:51:00 13:51:00 [employer] [facility] Medicine l Medicine Outpati ent Clinics 2019-12-10 2019-12-10 [facility] [id number] 15:39:00 15:39:00 [employer] [facility] ent [facility] 2019-12-08 2019-12-08 [facility] [id number] 13:40:00 13:40:00 t [facility] 2019-12-07 2019-12-07 [facility] [id number] 12:05:00 12:05:00 t [facility] 2019-11-16 2019-11-16 [facility] [id number] 11:00:00 11:00:00 t [facility] 2019-09-29 2019-09-29 [facility] [id number] 09:21:00 09:21:00 t [facility] 2019-09-21 2019-09-21 [facility] [id number] 14:00:00 14:00:00 t [facility] 2019-03-13 2019-03-13 Appointmen EUNICE LICONA [facility] [id number] Univers 09:00:00 09:00:00 t; Lesa RODRIGUEZ [facility] MONAE [place] Valery RODRIGUEZ M.D. ans 2018-10-02 2018-10-02 Appointmen EUNICE YOUSIF [id number] Univers 15:00:00 15:00:00 t; Asher JONES M.D. [place] JONES M.D. ans 2018-09-25 2018-09-25 Appointmen EUNICE CEJA [facility] [id number] Univers 10:30:00 10:30:00 t; BRANT CEJA NP Health and itIvan NP [facility] Valery Scott ans 2018-09-22 2018-09-22 Appointmen EUNICE YOUSIFa [id number] Univers 15:30:00 15:30:00 [facility] YOUSIF [place] Valery JONES M.D. ans 2018-08-22 2018-08-22 [facility] [id number] Univers 09:30:00 09:30:00 t; Lesa BRYANT y of [place], [place] Valery BRYANT M.D. ans 2018-07-29 2018-07-29 [facility] [id number] Univers 14:30:00 14:30:00 t; Lesa BRYANT y of [place], [place] Val[place] BRYANT M.D. ans 2018-07-25 2018-07-25 [facility] [id number] Univers 10:30:00 10:30:00 t; Lesa BRITT at [place], [place] Valery BRITT M.D. ans 2018-07-22 2018-07-22 [facility] [id number] Univers 11:15:00 11:15:00 t; Lesa BRYANT [facility], Orthopedics Norberto as Valery BRYANT M.D. ans 2018-07-15 2018-07-15 [facility] [id number] Univers 10:30:00 10:30:00 t; Lesa BRYANT [facility], Orthopedics Norberto as Valery BRYANT M.D. ans 2018-07-09 2018-07-09 [facility] [id number] Univers 13:00:00 13:00:00 t; Lesa BRYANT y [place], [place] Valery BRYANT M.D. ans 2018-06-30 2018-06-30 [facility] [id number] Univers 10:15:00 10:15:00 t; Lesa BRYANT [facility], Orthopedics Norberto as Valery BRYANT M.D. ans 2018-06-20 2018-06-20 [facility] [id number] Univers 13:40:00 13:40:00 t; SHANE MONROE [facility] ty of ROTH, Orthopedics T su MONROE NP Physi ci ans 2018-06-19 2018-06-19 Appointmen EUNICE HUERTA [facility] [id number] Univers 08:15:00 08:15:00 t; SERJIO HUERTA D.O. ity [place], [place] Tricia.OClemente Physici ans 2018-06-17 2018-06-17 Appointmen TAMMY [facility] [id number] Univers 15:45:00 15:45:00 t; Lesa BRYANT [facility] ity [facility], Orthopedics Norberto as Valery BRYANT M.D. ans 2018-06-03 2018-06-03 Appointmen EUNICE HUERTA [facility] [id number] Univers 13:45:00 13:45:00 t; SERJIO HUERTA D.O. [facility] [place], [place] Clarissa Physici ans Results Test Description Test Time Test Comments Results Result Sour e Comments [U] XRAY ELBOW 2 2018-06-17 Images Universi ty of VWS RIGHT [id number] 15:57:00 acquired, not [place] reported on Physicians this accession number. [U] XRAY WRIST 2018-06-17 Images University of MIN 3 VWS RIGHT 15:57:00 acquired, not [place] [id number] reported on Physicians this accession number.
--- NOTE | 2021-04-14 04:59 | ER ---
Nurse's Notes [facility] Name: Terry Akins Sr Age: 40 yrs Sex: Male : 1980 Arrival Date: 04/14/2021 Time: 03:17 Bed 12 Private MD: Diagnosis: Migraine Presentation: 04/14 03:45 Chief complaint: Patient states: he started having a migraine earlier today and has not bb been able to sleep currently he is being treated for and ear infection with levofloxacin. Coronavirus screen: headache. Ebola Screen: No symptoms or risks identified at this time. Initial Sepsis Screen: Does the patient meet any 2 criteria? No. Patient's initial sepsis screen is negative. Does the patient have a suspected source of infection? No. Patient's initial sepsis screen is negative. Risk Assessment: Do you want to hurt yourself or someone else? Patient reports no desire to harm self or others. Onset of symptoms was April 13, 2021. 03:45 Method Of Arrival: Ambulatory bb 03:45 Acuity: SARITHA 4 bb Triage Assessment: 04:01 Headache History: The patient has had previous headaches and this one is more severe bb than previous episodes. General: Appears in no apparent distress. uncomfortable, Behavior is cooperative, anxious. Pain: Complains of pain in head Pain currently is 10 out of 10 on a pain scale. Pain began suddenly, Also complains of sleeplessness. Neuro: Level of Consciousness is awake, alert, obeys commands, Oriented to person, place, time, situation. Cardiovascular: Capillary refill < 3 seconds Patient's skin is warm and dry. Respiratory: Respiratory effort is even, unlabored, Respiratory pattern is regular. GI: No signs and/or symptoms were reported involving the gastrointestinal system. Derm: Skin is dry, Skin is normal, Skin temperature is warm. Musculoskeletal: Circulation, motion, and sensation intact. Historical: - Allergies: 04:01 No Known Allergies; bb - Home Meds: 04:01 None [Active]; bb - PMHx: 04:01 GERD; Hypertension; bb - PSHx: 04:01 carpal tunnel right; left hand tendonitis; Appendectomy; hernia; bb - Immunization history:: Adult Immunizations up to date, Client reports having NOT received the Covid vaccine. - Social history:: Smoking status: Reported history of juuling and/or vaping. Patient uses alcohol, occasionally. Patient/guardian denies using street drugs. Screenin:45 Abuse screen: Denies threats or abuse. Nutritional screening: No deficits noted. bb Tuberculosis screening: No symptoms or risk factors identified. Fall Risk None identified. Assessment: 03:45 Reassessment: No changes from previously documented assessment. Patient is alert, bb oriented x 3, equal unlabored respirations, skin warm/dry/pink. see triage assessment. Pain: Complains of pain in headache. Vital Signs: 03:45 BP 158 / 86; Pulse 83; Resp 20 S; Temp 98.9(TE); Pulse Ox 95% on R/A; Weight 127.01 kg bb (R); Height 6 ft. 3 in. (190.50 cm) (R); Pain 10/10; 06:11 BP 132 / 87; Pulse 74; Resp 16; Pulse Ox 98% ; Pain 0/10; ms4 03:45 Body Mass Index 35.00 (127.01 kg, 190.50 cm) bb ED Course: 03:17 Patient arrived in ED. wm 03:45 Patient has correct armband on for positive identification. Bed in low position. Call bb light in reach. Side rails up X 1. Warm blanket given. 03:45 No provider procedures requiring assistance completed. Inserted saline lock: 20 gauge bb in left antecubital area, using aseptic technique. 03:50 Dallas Christine MD is Attending Physician. pkl 04:01 Triage completed. bb 04:01 Arm band placed on Patient placed in an exam room, on a stretcher. bb 06:11 IV discontinued, intact, bleeding controlled. ms4 Administered Medications: 04:45 Drug: Demerol (meperidine) 50 mg Route: IVP; Site: left antecubital; ms4 04:45 Drug: Benadryl (diphenhydrAMINE) 25 mg Route: IVP; Site: left antecubital; ms4 04:46 Drug: Zofran (Ondansetron) 4 mg Route: IVP; Site: left antecubital; ms4 04:46 Drug: Ketorolac 30 mg Route: IVP; Site: left antecubital; ms4 Outcome: 04:59 Discharge ordered by . pkl 06:11 Discharged to home ambulatory. ms4 06:11 Condition: stable 06:11 Discharge instructions given to patient, Instructed on discharge instructions, follow up and referral plans. Demonstrated understanding of instructions, follow-up care. 06:11 Patient left the ED. ms4 Signatures: Dallas Christine MD MD pkl Ballard, Brenda, RN RN Maddy Jordan Mikaela, RN RN ms4 Corrections: (The following items were deleted from the chart) 04:02 04:01 PMHx: carpal tunnel; kali bass 04:02 04:01 PMHx: Hypertensive disorder; kali bass
--- NOTE | 2021-04-14 05:00 | EDPHYS ---
Physician Documentation [facility] Name: Terry Akins Sr Age: 40 yrs Sex: Male : 1980 Arrival Date: 04/14/2021 Time: 03:17 Bed 12 Private MD: ED Physician Dallas Christine HPI: 04/14 04:36 This 40 yrs old Black Male presents to ER via Ambulatory with complaints of Headache - pkl MIGRAINE. 04:36 The patient complains of pain to the forehead. The patient describes the headache as pkl constant. Onset: The symptoms/episode began/occurred today. The patient has experienced similar episodes in the past, several times, today's symptoms are similar, to previous headaches. Historical: - Allergies: 04:01 No Known Allergies; bb - Home Meds: 04:01 None [Active]; bb - PMHx: 04:01 GERD; Hypertension; bb - PSHx: 04:01 carpal tunnel right; left hand tendonitis; Appendectomy; hernia; bb - Immunization history:: Adult Immunizations up to date, Client reports having NOT received the Covid vaccine. - Social history:: Smoking status: Reported history of juuling and/or vaping. Patient uses alcohol, occasionally. Patient/guardian denies using street drugs. ROS: 04:36 Eyes: Negative for injury, pain, redness, and discharge, ENT: Negative for injury, pkl pain, and discharge, Neck: Negative for injury, pain, and swelling, Cardiovascular: Negative for chest pain, palpitations, and edema, Respiratory: Negative for shortness of breath, cough, wheezing, and pleuritic chest pain, Abdomen/GI: Negative for abdominal pain, nausea, vomiting, diarrhea, and constipation, Back: Negative for injury and pain, : Negative for injury, bleeding, discharge, and swelling, MS/Extremity: Negative for injury and deformity, Skin: Negative for injury, rash, and discoloration. 04:36 Neuro: Positive for headache, of the forehead. Exam: 04:36 Head/Face: Normocephalic, atraumatic. Eyes: Pupils equal round and reactive to light, pkl extra-ocular motions intact. Lids and lashes normal. Conjunctiva and sclera are non-icteric and not injected. Cornea within normal limits. Periorbital areas with no swelling, redness, or edema. ENT: Nares patent. No nasal discharge, no septal abnormalities noted. Tympanic membranes are normal and external auditory canals are clear. Oropharynx with no redness, swelling, or masses, exudates, or evidence of obstruction, uvula midline. Mucous membranes moist. Neck: Trachea midline, no thyromegaly or masses palpated, and no cervical lymphadenopathy. Supple, full range of motion without nuchal rigidity, or vertebral point tenderness. No Meningismus. Chest/axilla: Normal chest wall appearance and motion. Nontender with no deformity. No lesions are appreciated. Cardiovascular: Regular rate and rhythm with a normal S1 and S2. No gallops, murmurs, or rubs. Normal PMI, no JVD. No pulse deficits. Respiratory: Lungs have equal breath sounds bilaterally, clear to auscultation and percussion. No rales, rhonchi or wheezes noted. No increased work of breathing, no retractions or nasal flaring. Abdomen/GI: Soft, non-tender, with normal bowel sounds. No distension or tympany. No guarding or rebound. No evidence of tenderness throughout. Back: No spinal tenderness. No costovertebral tenderness. Full range of motion. Skin: Warm, dry with normal turgor. Normal color with no rashes, no lesions, and no evidence of cellulitis. MS/ Extremity: Pulses equal, no cyanosis. Neurovascular intact. Full, normal range of motion. Neuro: Awake and alert, GCS 15, oriented to person, place, time, and situation. Cranial nerves II-XII grossly intact. Motor strength 5/5 in all extremities. Sensory grossly intact. Cerebellar exam normal. Normal gait. Vital Signs: 03:45 BP 158 / 86; Pulse 83; Resp 20 S; Temp 98.9(TE); Pulse Ox 95% on R/A; Weight 127.01 kg bb (R); Height 6 ft. 3 in. (190.50 cm) (R); Pain 10/10; 06:11 BP 132 / 87; Pulse 74; Resp 16; Pulse Ox 98% ; Pain 0/10; ms4 03:45 Body Mass Index 35.00 (127.01 kg, 190.50 cm) bb MDM: 03:50 Patient medically screened. pkl 04:36 Data reviewed: vital signs, nurses notes. pkl 04:56 ED course: Patient has appt. with his Neurologist next Saturday ( 04/18/21 ) Advised pkl patient to keep this appt. Patient understood instruction. Administered Medications: 04:45 Drug: Demerol (meperidine) 50 mg Route: IVP; Site: left antecubital; ms4 04:45 Drug: Benadryl (diphenhydrAMINE) 25 mg Route: IVP; Site: left antecubital; ms4 04:46 Drug: Zofran (Ondansetron) 4 mg Route: IVP; Site: left antecubital; ms4 04:46 Drug: Ketorolac 30 mg Route: IVP; Site: left antecubital; ms4 Disposition Summary: 04/14/21 04:59 Discharge Ordered Location: Home pkl Problem: new pkl Symptoms: have improved pkl Condition: Stable pkl Diagnosis - Migraine pkl Followup: pkl - With: Private Physician - When: 5 - 6 days - Reason: Re-evaluation by your physician Forms: - Medication Reconciliation Form pkl - Thank You Letter pkl - Antibiotic Education pkl - Prescription Opioid Use pkl Signatures: Dallas Christine MD MD pkl Maryan Amin RN RN bb Danita Lugo RN RN ms4 Corrections: (The following items were deleted from the chart) 04:02 04:01 PMHx: carpal tunnel; kali bass 04:02 04:01 PMHx: Hypertensive disorder; kali bass
[2021-04-14] MEDS ORDERED: DIPHENHYDRAMINE 50 MG/ML VIAL ONE (05:01)
[2021-04-14] MEDS ORDERED: MEPERIDINE HCL 50 MG/ML ONE (05:01)
[2021-04-14] MEDS ORDERED: NA CHLORIDE 0.9% 50 ML ONE (05:02)
[2021-04-14] MEDS ORDERED: ONDANSETRON 4 MG/2 ML VIAL ONE (05:10)
[2021-04-14] MEDS ORDERED: KETOROLAC 30 MG/ML INJ ONE (05:10)
[2021-04-14 06:24] VITALS: TEMP 98.9
[2021-04-14 06:25] VITALS: BP 132/87; O2SAT 98
== END 2021-04-14 06:11 | disposition home or self-care (01) ==
LOC: ER 03:16
DX: G43.909 Migraine, unspecified, not intractable, without status migrainosus (principal); I10 Essential (primary) hypertension
CPT/HCPCS: 96375; 96374; 99283; J1200; J2175; J2405

== ENCOUNTER 2021-05-07 21:17 | Emergency (ER) | payer OTHER ==
[2021-05-07 22:30] LABS: Basophils % 0.4 % (0-1.3); Hematocrit 41.9 % (39.6-49.0); Lymphocytes % 21.7 % (15.3-44.8); MPV 9.1 fL (7.6-11.3); RBC Red Blood Cell Count 5.01 M/uL (4.33-5.43)
[2021-05-07 22:33] LABS: Potassium 3.4 mmol/L (3.5-5.1)
[2021-05-07] MEDS ORDERED: PANTOPRAZOLE 40 MG INJ ONE (22:37)
[2021-05-07] MEDS ORDERED: ONDANSETRON 4 MG/2 ML VIAL ONE ×2 (22:37→23:43)
[2021-05-07] MEDS ORDERED: NA CHLORIDE 0.9% 1,000 ML ONE (22:37)
[2021-05-07] MEDS ORDERED: MEPERIDINE HCL 50 MG/ML ONE ×2 (22:37→23:43)
--- NOTE | 2021-05-08 00:32 | EDPHYS ---
Physician Documentation [facility] Name: Terry Akins Sr Age: 40 yrs Sex: Male : 1980 Arrival Date: 05/07/2021 Time: 21:24 Bed 19 Private MD: ED Physician Kwame Ortiz HPI: 05/07 21:50 This 40 yrs old Black Male presents to ER via Ambulatory with complaints of Headache. rn 21:50 The patient complains of pain to the all over. The patient describes the headache as rn aching. 21:51 Onset: The symptoms/episode began/occurred this morning. Associated signs and symptoms: rn Pertinent positives: nausea, vomiting, Pertinent negatives: altered mental status, rash, vision changes, vision loss. Severity of symptoms: At its worst the pain was moderate, "similar to past headaches", in the emergency department the pain is unchanged. Headache History: The patient has had previous headaches and this one is similar to previous episodes. The symptoms are alleviated by nothing. the symptoms are aggravated by lights, movement, stress. The patient has experienced similar episodes in the past, chronically. The patient has not recently seen a physician. Patient reports headache, got worse this morning. Reports headache present for 1 year at least with multiple ER visits and ENT follow-ups. Told by ENT that may have fluid buildup eye with drainage, has tried tympanostomy without alleviation. States headache feels similar to previous headaches but a little bit worse today. States comes into ER about once a month for shots for migraine. Also reports today was feeling nauseated and threw up red-tinged emesis without blood clots. Patient denies any blood thinners. Reports history of gastric ulcers.. Historical: - Allergies: 21:31 No Known Allergies; kg - Home Meds: 21:31 None [Active]; kg - PMHx: 21:31 CSF leak; Hypertension; GERD; kg - PSHx: 21:31 Nerve transplantion; Appendectomy; carpal tunnel right; hernia; left hand tendonitis; kg - Immunization history:: Adult Immunizations not up to date, Client reports receiving the 2nd dose of the Covid vaccine, Date received: April 15, 2021 [employer] Client reports receiving the 1st dose of the Covid vaccine, May 06, 2021 [employer] . - Social history:: Smoking status: Reported history of juuling and/or vaping. Patient uses alcohol, occasionally. - Family history:: not pertinent. - Hospitalizations: : No recent hospitalization is reported. ROS: 21:51 Constitutional: Negative for fever, chills, and weight loss, Eyes: Negative for injury, rn pain, redness, and discharge, ENT: Negative for injury, pain, and discharge, Neck: Negative for injury, and swelling, Cardiovascular: Negative for chest pain, palpitations, and edema, Respiratory: Negative for shortness of breath, cough, wheezing, and pleuritic chest pain, Abdomen/GI: Negative for abdominal pain, diarrhea, and constipation, Back: Negative for injury and pain, : Negative for injury, bleeding, discharge, and swelling, MS/Extremity: Negative for injury and deformity, Skin: Negative for injury, rash, and discoloration, Neuro: Negative for numbness, tingling, and seizure. Exam: 21:54 Constitutional: This is a well developed, well nourished patient who is awake, alert, rn and in no acute distress. Head/Face: Normocephalic, atraumatic. Eyes: Pupils equal round and reactive to light, extra-ocular motions intact. Lids and lashes normal. Conjunctiva and sclera are non-icteric and not injected. Cornea within normal limits. Periorbital areas with no swelling, redness, or edema. ENT: Moist mucous membranes Neck: Trachea midline, no masses palpated, and no cervical lymphadenopathy. Supple, full range of motion without nuchal rigidity, or vertebral point tenderness. No Meningismus. Cardiovascular: Regular rate and rhythm. No pulse deficits. Respiratory: No increased work of breathing, no retractions or nasal flaring. Abdomen/GI: Soft, non-tender Skin: Warm, dry MS/ Extremity: Pulses equal, no cyanosis. Neuro: Awake and alert, GCS 15, oriented to person, place, time, and situation. Cranial nerves II-XII grossly intact. Motor strength 5/5 in all extremities. Sensory grossly intact. Cerebellar exam normal. Normal gait. Vital Signs: 21:24 BP 142 / 103; Pulse 94; Resp 20; Temp 99.2(O); Pulse Ox 100% on R/A; Weight 131.54 kg kg (R); Height 6 ft. 3 in. (190.50 cm) (R); Pain 10/10; 22:55 BP 167 / 82; Pulse 85; Resp 17; Pulse Ox 100% on R/A; bc5 05/08 00:34 BP 133 / 74; Pulse 87; Resp 17; Temp 98.5(O); Pulse Ox 97% on R/A; Pain 5/10; bc5 05/07 21:24 Body Mass Index 36.25 (131.54 kg, 190.50 cm) kg Lometa Coma Score: 00:30 Eye Response: spontaneous(4). Verbal Response: oriented(5). Motor Response: obeys rn commands(6). Total: 15. MDM: 05/07 21:37 Patient medically screened. rn 05/08 00:29 ED course: Pt improved. Awaiting ct angio results.. rn 00:30 Differential diagnosis: cluster headache, hypertensive headache, migraine, tension rn headache, vasomotor headache. Data reviewed: vital signs, nurses notes, lab test result(s), radiologic studies, CT scan, and as a result, I will discharge patient. Counseling: I had a detailed discussion with the patient and/or guardian regarding: the historical points, exam findings, and any diagnostic results supporting the discharge/admit diagnosis, lab results, radiology results, the need for outpatient follow up, to return to the emergency department if symptoms worsen or persist or if there are any questions or concerns that arise at home. Counseling: I had a detailed discussion with the patient and/or guardian regarding: the presence of at least one elevated blood pressure reading (>120/80) during this emergency department visit. Response to treatment: the patient's symptoms have mildly improved after treatment, and as a result, I will discharge patient. Special discussion: I have referred the patient to see his PCP for further evaluation of high blood pressure. 05/07 21:45 Order name: CBC with Diff; Complete Time: 22:52 rn 05/07 21:45 Order name: Basic Metabolic Panel; Complete Time: 22:52 rn 05/07 21:45 Order name: CT Head Brain wo Cont rn 05/07 21:45 Order name: CT Head Angio rn 05/07 21:45 Order name: CT Neck Angio rn 05/07 21:45 Order name: IV Start; Complete Time: 22:14 rn Administered Medications: 05/07 22: Drug: ProTONIX (pantoprazole) 40 mg Route: IVP; Site: left antecubital; 5 :26 Follow up: Response: No adverse reaction :26 Drug: Zofran (Ondansetron) 4 mg Route: IVP; Site: left antecubital; 5 :26 Follow up: Response: Nausea unchanged : Drug: NS 0.9% 1000 ml Route: IV; Rate: 1000 ml; Site: left antecubital; 05/08 00:34 Follow up: IV Status: Completed infusion 05/07 22:26 Drug: Demerol (meperidine) 50 mg Route: IVP; Site: left antecubital; 5 23:26 Follow up: Response: Pain is unchanged, physician notified : Drug: Zofran (Ondansetron) 4 mg Route: IVP; Site: left antecubital; 05/08 00:34 Follow up: Response: Vomiting decreased 05/07 23:26 Drug: Demerol (meperidine) 50 mg Route: IVP; Site: left antecubital; 05/08 00:35 Follow up: Response: Pain is decreased 01:18 Drug: Flexeril (cyclobenzaprine) 10 mg Route: PO; 01:18 Follow up: Response: Medication administered at discharge. [facility] Disposition Summary: 05/08/21 00:31 Discharge Ordered Location: Home rn Problem: chronic rn Symptoms: have improved rn Condition: Stable rn Diagnosis - Migraine without aura, not intractable rn - Vomiting rn Followup: rn - With: Private Physician - When: As needed - Reason: Recheck today's complaints, Re-evaluation by your physician Discharge Instructions: - Discharge Summary Sheet rn - Migraine Headache rn - Recurrent Migraine Headache rn Forms: - Medication Reconciliation Form rn - Thank You Letter rn - Antibiotic heel burnisher - Prescription Opioid Use rn Prescriptions: - ondansetron 4 mg Oral tablet,disintegrating - place 1 tablet by TRANSLINGUAL route every 8 hours As needed; 20 tablet; rn Refills: 0, Product Selection Permitted Signatures: Dispatcher [employer] EDKwame Monet MD MD rn Graham, Kristen, RN RN kg Corado, Bella RN RN bc5
--- NOTE | 2021-05-08 00:32 | ER ---
Nurse's Notes [facility] Name: Terry Akins Sr Age: 40 yrs Sex: Male : 1980 Arrival Date: 05/07/2021 Time: 21:24 Bed 19 Private MD: Diagnosis: Migraine without aura, not intractable;Vomiting Presentation: 05/07 21:24 Chief complaint: Patient states: Headache/pressure in head, vomiting bright red blood, kg fevers, stiff neck, ringing ears starting at 0300. Pt is being seen by Stacy Ulloa ([facility]ary[facility]ology) for CSF leak. Coronavirus screen: Vaccine status: Patient reports receiving the 2nd dose of the covid vaccine. Date May 06, 2021 [employer] Patient reports receiving the 1st dose of the Covid vaccine. Date April 15, 2021 [employer] Client denies travel out of the [place] in the last 14 days. Client presents with at least one sign or symptom that may indicate coronavirus-19. Standard/surgical mask placed on the client. Provider contacted for isolation considerations. Ebola Screen: Patient negative for fever greater than or equal to 101.5 degrees Fahrenheit, and additional compatible Ebola Virus Disease symptoms Patient denies exposure to infectious person. Patient denies travel to an Ebola-affected area in the 21 days before illness onset. Initial Sepsis Screen: Does the patient meet any 2 criteria? No. Patient's initial sepsis screen is negative. Does the patient have a suspected source of infection? No. Patient's initial sepsis screen is negative. Risk Assessment: Do you want to hurt yourself or someone else? Patient reports no desire to harm self or others. Onset of symptoms was May 07, 2021 at 03:00. 21:24 Method Of Arrival: Ambulatory kg 21:24 Acuity: SARITHA 3 kg Triage Assessment: 21:31 General: Appears in no apparent distress. Behavior is calm, cooperative, appropriate kg for age, quiet. Pain: Complains of pain in Head. Historical: - Allergies: 21:31 No Known Allergies; kg - Home Meds: 21:31 None [Active]; kg - PMHx: 21:31 CSF leak; Hypertension; GERD; kg - PSHx: 21:31 Nerve transplantion; Appendectomy; carpal tunnel right; hernia; left hand tendonitis; kg - Immunization history:: Adult Immunizations not up to date, Client reports receiving the 2nd dose of the Covid vaccine, Date received: April 15, 2021 [employer] Client reports receiving the 1st dose of the Covid vaccine, May 06, 2021 [employer] . - Social history:: Smoking status: Reported history of juuling and/or vaping. Patient uses alcohol, occasionally. - Family history:: not pertinent. - Hospitalizations: : No recent hospitalization is reported. Screenin:30 Abuse screen: Denies threats or abuse. Denies injuries from another. Nutritional kg screening: No deficits noted. Tuberculosis screening: No symptoms or risk factors identified. Fall Risk None identified. Assessment: 23:09 Reassessment: Pt returned from CT, c/o continued ADAMSON and nausea, notified and bc5 gave verbal for 50 mg Demerol IVP 4 mg Zofran IVP. Vital Signs: 21:24 BP 142 / 103; Pulse 94; Resp 20; Temp 99.2(O); Pulse Ox 100% on R/A; Weight 131.54 kg kg (R); Height 6 ft. 3 in. (190.50 cm) (R); Pain 10/10; 22:55 BP 167 / 82; Pulse 85; Resp 17; Pulse Ox 100% on R/A; bc5 05/08 00:34 BP 133 / 74; Pulse 87; Resp 17; Temp 98.5(O); Pulse Ox 97% on R/A; Pain 5/10; bc5 05/07 21:24 Body Mass Index 36.25 (131.54 kg, 190.50 cm) kg Omar Coma Score: 00:30 Eye Response: spontaneous(4). Verbal Response: oriented(5). Motor Response: obeys rn commands(6). Total: 15. ED Course: 05/07 21:24 Patient arrived in ED. cf2 21:30 Triage completed. kg 21:30 Patient has correct armband on for positive identification. kg 21:31 Arm band placed on left wrist. kg 21:37 Kwame Ortiz MD is Attending Physician. rn 21:47 Bibi Wells, BRYN is Primary Nurse. bc5 22:10 Inserted saline lock: 20 gauge in left antecubital area, using aseptic technique. Blood ds4 collected. 22:14 CBC with Diff Sent. ds4 22:14 Basic Metabolic Panel Sent. ds4 23:34 CT Head Brain wo Cont In Process Unspecified. EDMS 23:35 CT Head Angio In Process Unspecified. EDMS 23:35 CT Neck Angio In Process Unspecified. EDMS 05/08 00:37 No provider procedures requiring assistance completed. bc5 00:37 IV discontinued, intact, bleeding controlled, No redness/swelling at site. Pressure bc5 dressing applied. Administered Medications: 05/07 22:26 Drug: ProTONIX (pantoprazole) 40 mg Route: IVP; Site: left antecubital; bc5 23:26 Follow up: Response: No adverse reaction bc5 22:26 Drug: Zofran (Ondansetron) 4 mg Route: IVP; Site: left antecubital; bc5 23:26 Follow up: Response: Nausea unchanged bc5 : Drug: NS 0.9% 1000 ml Route: IV; Rate: 1000 ml; Site: left antecubital; bc5 05/08 00:34 Follow up: IV Status: Completed infusion bc5 05/07 22:26 Drug: Demerol (meperidine) 50 mg Route: IVP; Site: left antecubital; bc5 23:26 Follow up: Response: Pain is unchanged, physician notified bc5 23:26 Drug: Zofran (Ondansetron) 4 mg Route: IVP; Site: left antecubital; bc5 05/08 00:34 Follow up: Response: Vomiting decreased bc5 05/07 23:26 Drug: Demerol (meperidine) 50 mg Route: IVP; Site: left antecubital; bc5 05/08 00:35 Follow up: Response: Pain is decreased bc5 01:18 Drug: Flexeril (cyclobenzaprine) 10 mg Route: PO; bc5 01:18 Follow up: Response: Medication administered at discharge. bc5 Outcome: 00:31 Discharge ordered by . rn 00:37 Condition: improved bc5 00:37 Discharged to home ambulatory. bc5 00:42 Discharge instructions given to patient, Instructed on discharge instructions, follow bc5 up and referral plans. Prescriptions given X 1. 01:19 Patient left the ED. 5 Signatures: Dispatcher [employer] EDMS Kwame Ortiz MD MD rn Prieto Cox ds4 Richard Kern cf2 Nancy Wolff, BRYN RN kg Bibi Wells RN RN bc5 Corrections: (The following items were deleted from the chart) 05/07 21:38 21:24 Chief complaint: Patient states: Headache/pressure in head, vomiting bright red kg blood, fevers, stiff neck, ringing ears starting at 0300 kg 23:28 23:09 Reassessment: Pt returned from CT, c/o continued ADAMSON and nausea, notified bc5 and gave verbal for 50 mg Demerol IVP 4 mg Zofran bc5
[2021-05-08 01:32] VITALS: BP 133/74; TEMP 98.5; O2SAT 97
[2021-05-08] MEDS ORDERED: CYCLOBENZAPRINE 10 MG TAB ONE (01:36)
--- NOTE | 2021-05-08 11:24 | RAD REPORT ---
EXAM DESCRIPTION: CT - Head Brain Wo Cont - 05/08/2021 5:23 am CLINICAL HISTORY: Headache COMPARISON: CT Head/Brain Without Contrast 06/05/2020 TECHNIQUE: Head/brain axial images acquired without contrast. Coronal and sagittal reformats created . Exam performed according to departmental dose-optimization program which includes automated exposur e control, adjustment of mA and/or kV according to patient size, and/or use of iterative reconstructi on technique. FINDINGS: No midline shift, mass effect, intracranial hemorrhage, or hydrocephalus. Brain parenchyma unremarkable. Paranasal sinuses clear. Marked left mastoid air cell opacification. No skull fracture or significant skull lesion. IMPRESSION: 1. Unremarkable CT brain appearance. 2. Left mastoid air cells show marked opacification that may represent fluid/effusion or mastoiditis. Electronically signed by: Alfredo Sharma MD 05/07/2021 11:48 PM CDT Due to temporary technical issues with the PACS/Fluency reporting system, reports are being signed by the in house radiologist without review as a courtesy to ensure prompt reporting. The interpreting r adiologist is fully responsible for the content of the report.
--- NOTE | 2021-05-08 11:39 | RAD REPORT ---
EXAM DESCRIPTION: CT - Head angio - 05/08/2021 5:23 am CLINICAL HISTORY: Headache COMPARISON: CT Head/Brain Without Contrast 05/07/2021 at 11:50 PM TECHNIQUE: Head and neck CTA axial images acquired after mL Isovue 370 IV contrast. Coronal and sa gittal CTA MIPs and MPRs created. 3D volume rendered images created. Exam performed according to [facility] dose-optimization program which includes automated exposure control, adjustment of mA and/or kV according to patient size, and/or use of iterative reconstruction technique. FINDINGS: Both intracranial vertebral, basilar, and both posterior cerebral arteries unremarkable. Both intracranial internal carotid, both middle cerebral, anterior communicating, and both anterior c erebral arteries unremarkable. No evidence of large intracranial arterial occlusion, aneurysm, or AVM. IMPRESSION: Unremarkable CTA head/brain with contrast Electronically signed by: Alfredo Sharma MD 05/07/2021 11:57 PM CDT Due to temporary technical issues with the PACS/Fluency reporting system, reports are being signed by the in house radiologist without review as a courtesy to ensure prompt reporting. The interpreting r adiologist is fully responsible for the content of the report.
--- NOTE | 2021-05-08 12:30 | RAD REPORT ---
EXAM DESCRIPTION: CT - Neck Angio - 05/08/2021 5:24 am CLINICAL HISTORY: Headache COMPARISON: CT cervical spine 03/31/2021 TECHNIQUE: Neck CTA axial images acquired after IV contrast. Coronal and sagittal CTA MIPs and MPRs created. 3D volume rendered images created. Exam performed according to departmental dose-optimizatio n program which includes automated exposure control, adjustment of mA and/or kV according to patient size, and/or use of iterative reconstruction technique. FINDINGS: Aortic arch unremarkable. Both vertebral arteries unremarkable. Both carotid arteries unremarkable. No significant carotid artery stenosis (by NASCET criteria). Mild cervical spine degenerative disease. IMPRESSION: Unremarkable CTA neck with contrast Electronically signed by: Alfredo Sharma MD 05/08/2021 12:07 AM CDT Due to temporary technical issues with the PACS/Fluency reporting system, reports are being signed by the in house radiologist without review as a courtesy to ensure prompt reporting. The interpreting r adiologist is fully responsible for the content of the report.
== END 2021-05-08 01:19 | disposition home or self-care (01) ==
LOC: ER 21:17
DX: G43.009 Migraine without aura, not intractable, without status migrainosus (principal); R11.10 Vomiting, unspecified; I10 Essential (primary) hypertension
CPT/HCPCS: 96361; 85025; 80048; 36415; 70450; 70496; 70498; 96375; 96374; 99284; Q9967; C9113; J2175 ×2; J7030; J2405 ×2

== ENCOUNTER 2021-08-02 11:37 | Emergency (ER) | payer OTHER ==
--- OUTSIDE RECORDS SUMMARY | 2021-08-02 11:40 | XMS REPORT | Continuity of Care Document ---
:1980 Author Organization [facility] t Address [address] [place] [address] Care Team Providers Name Role Phone Asked, Pcp Primary Care Physician Unavailable Stacy LOJA Attending Clinician Doctor Unassigned, Name Attending Clinician Unavailable 1, Audio Sound Suite Attending Clinician Unavailable RENZO Attending Clinician Unavailable Evaristo JIMENEZ Attending Clinician Unavailable MARIAN PADRON Attending Clinician Unavailable MONAE Attending Clinician Unavailable BENJA Attending Clinician Unavailable MARCIAL Attending Clinician Unavailable TAMMY Attending Clinician Unavailable KESHIA Attending Clinician Unavailable GONZALEZ Attending Clinician Unavailable BRADLEY Attending Clinician Unavailable MARIAN PADRON Admitting Clinician Unavailable Payers Payer Name Policy Type Policy Effective Expiration Source Number Date Date [facility] [id number] 2019 [facility] - MANAGED 00:00:00 [place] Me dical MEDICAIDCOMMUNITY Branch HEALTH CHOICE [id number]/08/13 020-[address] [address]Medicaid Problems Condition Condition Condition Status Onset Resolution Last Treating Co mments Source Name Details Category Date Date Treatment Clinician Date CSF CSF Disease Active [facility] otorrhea otorrhea 9- Health 00:00: 00 Syncope Syncope Disease Active 2017-[address] [facility] l No known No known Disease Unive rs active active ity of problems problems [facility] Cubital Cubital Problem Active Univers tunnel tunnel [...] sleep e sleep ity of apnea, apnea, [place] adult adult Physici ans Migraine Migraine Problem Active Unive rs headache headache ity of [place] Physici ans Chronic Chronic Problem Active Univers GERD GERD ity of [place] Physici ans History of History of Problem Resolve Univers arthritis arthritis d ity of [place] Physici ans History of History of Problem [...] ents Source Name Type Date Date Clinician NO KNOWN Drug Active Univers ALLERGIE Class ity of S [facility] Branch Acetamin drug Active Headache Univer s ophen [...] History Uni versity of Family Member cerebrovascular [place] [facility] accident (CVA) Social History Social Habit Start Date Stop Date Quantity Comments Source Exposure to Not sure University SARS-CoV-2 [place] Medical (event) Branch Alcohol intake 2021-05-03 2021-05-03 Current drinker [place] [facility] alth 00:00:00 00:00:00 of alcohol (finding) Tobacco use and 2021-04-18 2021-04-18 Smokeless tobacco [facility] exposure 00:00:00 00:00:00 non-user History of 2018-04-25 [facility] Ass[facility] At [birth year] [facility] 00:00:00 00:00:00 Smoking Status Start Date Stop Date Source Unknown if ever smoked [facility] y [facility] Branch Ex-smoker 2021-04-18 00:00:00 2021-04-18 00:00:00 [facility] Medications Ordered Filled Start Stop Current Ordering Indication Dosage Frequency Signature Comments Components Source Medication Medication Date Date Medication? Clinician (SIG) Name Name ProAir HFA Yes INHALE 2 [facility] 108 (90 8-26 [facility] Health Base) 00:00: EVERY 6 MCG/ACT 00 HOURS inhaler levoFLOXaci Yes TAKE 1 Univ ers n [...] 00 :00 l Outpati ent Clinics ondansetron 2019-0 Yes [id number] 4mg Take 1 Univers (ZOFRAN 3-11 tablet by ity of ODT) 4 mg 00:00: mouth [place] disintegrat 00 every 8 Medic al ing tablet (eight) Branch hours as needed for Nausea and Vomiting (N/V). benzonatate 2019- Yes [id number] 200mg Take 1 Univers 200 mg 3-11 capsule by ity of capsule 00:00: mouth 3 [place] 00 (three) Medical times Branch daily as needed for Cough for up to 20 doses. ibuprofen 2019-0 Yes [id number] 600mg Take 1 U nivers 600 mg 3-11 tablet by ity of tablet 00:00: mouth [place] 00 every 6 Medical (six) Branch hours as needed for Pain (scale 4-6). SUMAtriptan SUMAtriptan Yes POURAN inject PRN Univers Succinate 6 Succinate 6 2-21 BENJA onset of ity of MG/0.5ML MG/0.5ML 00:00: M.D. the [place] Subcutaneou Subcutaneou 00 cluster Physici s Solution [...] MG Oral MG Oral 00:00: M.D. DAILY. [place] Tablet Tablet 00 Physici ans No known No [facility] Zofran Zofran Yes Norah 1 tablet [facility] [place] [facility] Losartan Losartan Yes Norah [address] Potassium-H Potassium-H [place] [facility] Hydrocodone Hydrocodone Yes Norah [address] -Acetaminop -Acetaminop [place] as needed [facility] Adderall XR Adderall XR Yes Norah [address] [facility] [place] in the [facility]ics Omeprazole Omeprazole Yes Norah [address] [facility] [place] 30 minutes [facility] morning l meal [facility] Dicyclomine Dicyclomine Yes Norah [address] HCl HCl [place] [facility] Clinics Immunizations Ordered Immunization Filled Immunization Date Status Commen ts Source Name Name COVID-19 [email or web address] 2021-05-06 Completed [facility] Vaccination 00:00:00 COVID-19 Pfizer 2021-04-15 Completed [facility] Vaccination 00:00:00 Fluzone Quadrivalent 2018-06-03 Completed Univ ersity of 0.5 ML Intramuscular 14:35:00 [place] Susp[place] Vital Signs Vital Name Observation Time Observation Value Comments Source BP Systolic 2018-10-02 155 mm[Hg] Location: [facility] : Position: [place] Physician s Sitting BP Diastolic 2018-10-02 88 mm[Hg] Location: [facility] :: Position: [place] Physician s Sitting Height 2018-10-02 75 [in_us] [facility] :: [place] Physician s Weight 2018-10-02 302 [lb_av] [facility] :: [place] Physician s Body Mass Index 2018-10-02 37.75 kg/m2 University o f Calculated 15::00 [place] Physician s Temperature 2018-10-02 98 [degF] Method: Oral [facility] :: [place] Physician s Heart Rate 2018-10-02 63 /min Location: [facility] :: Apical; [place] Physician s BP Systolic 2018-09-25 154 mm[Hg] Location: [facility] : Position: [place] Physician s Sitting BP Diastolic 2018-09-25 98 mm[Hg] Location: [facility] :: Position: [place] Physician s Sitting Heart Rate 2018-09-25 70 /min Quality: Normal University o f 10::00 [place] Physician s BP Systolic 2018-09-25 169 mm[Hg] Location: [facility] ::00 Position: [place] Physician s Sitting BP Diastolic 2018-09-25 65 mm[Hg] Location: [facility] ::00 Position: [place] Physician s Sitting Heart Rate 2018-09-25 67 /min Quality: Normal University o f 10:25:00 [place] Physician s Height 2018-09-25 75 [in_us] University of ::00 [place] Physician s Weight 2018-09-25 295 [lb_av] University of :: [place] Physician s Body Mass Index 2018-09-25 36.87 kg/m2 University o f Calculated :25:00 [place] Physician s Temperature 2018-09-25 98.3 [degF] Method: Oral [facility] ::00 [place] Physician s O2 SAT 2018-09-25 99 % University of :: [place] Physician s BP Systolic 2018-06-03 136 mm[Hg] Location: [facility] :: Position: [place] Physician s Sitting BP Diastolic 2018-06-03 75 mm[Hg] Location: [facility] :: Position: [place] Physician s Sitting Height 2018-06-03 75 [in_us] [facility] 14:09:00 [place] Physician s Weight 2018-06-03 317 [lb_av] [facility] :09: [place] Physician s Body Mass Index 2018-06-03 39.62 kg/m2 [place] Calculated 14:: [place] Physician s Temperature 2018-06-03 97.9 [degF] Method: Oral [facility] 14::00 [place] Physician s Heart Rate 2018-06-03 74 /min [facility] :: [place] Physician s Procedures Procedure Date / Time Performing Clinician Source Performed REFERRAL- REQUEST/RESPONSE 2021-03-30 05:01:00 Doctor Unassigned , [facility] [U] XRAY KNEE 4 OR MORE 2018-07-24 00:00:00 [facility] VWS RIGHT [id number] Physicians Emg/Ncv 2018-06-20 00:00:00 [place] f [place] [facility] Sleep Lab - Sleep 2018-06-03 00:00:00 [facility] Study Split Night Physicians History of Cubital tunnel [facility] repair Physicians History of Appendectomy [facility] Physicians History of Wrist surgery [facility] Physicians History of University [facility] xas Hemorrhoidectomy Physicians Plan of Care Planned Activity Planned Date Details Comments Source Diagnostic Test 2018-06-20 Emg/Ncv [code = [facility] Pending 00:00:00 Emg/Ncv] Physicians Diagnostic Test 2018-06-20 Emg/Ncv [code = [facility] y [facility] Pending 00:00:00 Emg/Ncv] Physicians Future Scheduled COVID-[address] [facility] Test (1) [code = COVID-19 VACCINE (1)] Future Scheduled Hepatitis [facility] Test screening (procedure) [code = 330484868] Future Scheduled INFLUENZA VACCINE [facility] Test [code = INFLUENZA VACCINE] Encounters Start End Encounter Admission Attending Care Care Encounter Source Date/Time Date/Time Type Type Clinicians Facility Department ID 2021-08-02 2021-08-02 EUNICE Carias [id number] [place] 00:00:00 00:00:[address] [id number] [facility] [id number] 2021-05-11 2021-05-11 [facility] [id number] 2021-04-06 2021-04-06 [id number] 2021-04-06 2021-04-06 [facility] [id number] 2021-03-31 2021-03-31 [facility] [id number] [facility] 2021-03-30 2021-03-30 Orders Doctor AICHA [id number] Univers 00:00:00 00:00:00 Only Unassigned, ABDULKADIR [id number] [facility] [id number] [facility] as [id number] [address] 2021-03-30 2021-03-30 Orders Doctor AICHA [id number] 00:00:00 00:00:00 Only Unassigned, ABDULKADIR [id number] [facility] [id number] [facility] 2021-03-21 2021-03-21 Ancillary 1, Gal UNIVERSIT [id number] 14:21:34 15:15:15 Visit Audio Sound Y [id number] [facility] [id number] [employer] [id number] BLDG. [id number] 2021-03-21 2021-03-[address] [facility] [id number] Univers 14:30:00 14:30:00 [id number] ity [facility] [place] [facility] 2021-03-21 2021-03-[address] [facility] [id number] Univers 13:45:00 13:45:00 FABY katarzyna [facility] [place] [facility] 2021-01-17 2021-01-17 Emergency X BARBARA, [facility] ERT [id number] Univers 19:28:00 19:28:00 [facility] 2020-11-21 2020-11-21 Emergency X [facility] ERT [id number] Univers 15:51:00 15:51:00 [facility] 2020-07-20 2020-07-20 Outpatient [facility] [id number] [facility] 2020-07-12 2020-07-12 Outpatient [facility]MLC [facility] [id number] [facility] 2020-05-23 2020-05-23 Outpatient STLMLC [facility] [id number] [facility] 2020-02-24 2020-02-24 [facility] [id number] 14:42:00 14:42:00 t Apptimize [facility] Family Medicine l Medicine Outpati ent Clinics 2020-02-22 2020-02-22 [facility] [id number] 13:51:00 13:51:00 t [facility] Medicine l Medicine Outpati ent Clinics 2019-12-10 2019-12-10 [facility] [id number] 15:39:00 15:39:00 t [facility] [employer] [facility] Family Medicine l Medicine Outpati ent Clinics 2019-12-08 2019-12-08 [facility] [id number] 13:40:00 13:40:00 t [facility] [employer] [facility] Medicine l Medicine Outpati ent Clinics 2019-12-07 2019-12-07 [facility] [id number] 12:05:00 12:05:00 t [facility] [employer] - [address] Family [facility] ent Clinics 2019-11-16 2019-11-16 [facility] [id number] 11:00:00 11:00:00 t [facility] ent Clinics 2019-10-21 2019-10-21 Emergency X Blaire PADRON [facility] ERT [id number] Univers 11:24:16 14:51:00 ity of [facility] 2019-09-29 2019-09-29 [facility] [id number] 09:21:00 09:21:00 t [facility] ent Clinics 2019-09-21 2019-09-21 [facility] [id number] 14:00:00 14:00:00 t [facility] ent Clinics 2019-03-13 2019-03-13 Appointmen EUNICE LICONA [id number] Univers 09:00:00 09:00:00 t; Lesa RODRIGUEZ [facility] Mirna LICONA Physici M.D. ans 2018-10-02 2018-10-02 Appointmen EUNICE YOUSIF [id number] Univers 15:00:00 15:00:00 t; Asher JONES M.D. [place] Valery JONES M.D. ans 2018-09-25 2018-09-25 Appointmen EUNICE CEJA [facility] [id number] Univers 10:30:00 10:30:00 t; BRANT CEJA NP Health and ity stephen GUO NP Wellness [facility] Valery Scott ans 2018-09-22 2018-09-22 Appointmen EUNICE YOUSIF [id number] Univers 15:30:00 15:30:00 t; Asher JONES M.D. [place] Valery JONES M.D. ans 2018-08-22 2018-08-22 Appointmen EUNICE MUNOZ [id number] Univers 09:30:00 09:30:00 t; Lesa BRYANT it y of [place], [place] Valery BRYANT M.D. ans 2018-07-29 2018-07-29 [facility] [id number] Univers 14:30:00 14:30:00 t; Lesa BRYANT it y of [place], [place] aVlery BRYANT M.D. ans 2018-07-25 2018-07-25 [id number] Univers 10:30:00 10:30:00 t; Lesa BRITT at [facility] y of [place], [place] Valery BRITT M.D. ans 2018-07-22 2018-07-22 [facility] [id number] Univers 11:15:00 11:15:00 t; Lesa BRYANT [facility], Orthopedics [place] as Valery BRYANT M.D. ans 2018-07-15 2018-07-15 [facility] [id number] Univers 10:30:00 10:30:00 t; Lesa BRYANT [facility], Orthopedics [place] as Valery RBYANT M.D. ans 2018-07-09 2018-07-09 [facility] [id number] Univers 13:00:00 13:00:00 t; Lesa BRYANT it y [place], [place] Valery BRYANT M.D. ans 2018-06-30 2018-06-30 [facility] [id number] Univers 10:15:00 10:15:00 t; Lesa BRYANT [facility], Orthopedics [place]to as Valery BRYANT M.D. ans 2018-06-20 2018-06-20 [id number] Univers 13:40:00 13:40:00 t; SHANE MONROE [facility], [place] SHANE MONROE Physi ci ans 2018-06-19 2018-06-19 [facility] [id number] Univers 08:15:00 08:15:00 t; SERJIO HUERTA D.O. ity [place], [place] D.OClemente Physici ans 2018-06-17 2018-06-17 Appointmen EUNICE MUNOZ [facility] [id number] Univers 15:45:00 15:45:00 t; Lesa BRYANT [facility] ity [facility], Orthopedics Norberto as Valery BRYANT M.D. ans 2018-06-03 2018-06-03 Appointmen EUNICE HUERTA [facility] [id number] Univers 13:45:00 13:45:00 t; SERJIO HUERT[facility] [place], [place] D.OClemente Physici ans Results Test Description Test Time Test Comments Results Result [facility] e Comments [U] XRAY ELBOW 2 2018-06-17 Images Universi ty of S RIGHT [id number] 15:57:00 acquired, not [place] reported on Physicians this accession number. [U] XRAY WRIST 2018-06-17 Images University [facility] 3 VW RIGHT 15:57:00 acquired, not [place] [id number] reported on Physicians this accession number.
[2021-08-02] MEDS ORDERED: ONDANSETRON 4 MG/2 ML VIAL ONE (12:49)
--- NOTE | 2021-08-02 12:57 | RAD REPORT ---
EXAM DESCRIPTION: CT - Head Brain Wo Cont - 08/02/2021 12:30 pm CLINICAL HISTORY: CSF leak from left ear COMPARISON: Head Brain Wo Cont dated 05/07/2021; Head angio dated 05/07/2021; Head C Spine Mpr Wo Con dated 03/31/2021 TECHNIQUE: All CT scans are performed using dose optimization technique as appropriate and may inclu de automated exposure control or mA/KV adjustment according to patient size. FINDINGS: No intracranial hemorrhage, hydrocephalus or extra-axial fluid collection.No areas of brai n edema or evidence of midline shift. Left mastoid effusion is unchanged. The calvarium is intact. IMPRESSION: No acute intracranial abnormality. Left mastoid effusion is unchanged.
[2021-08-02 13:02] LABS: Absolute Lymphocytes (CBC) 1.7 K/uL (0.7-4.9); Basophils % 0.7 % (0-1.3); Hematocrit 44.1 % (39.6-49.0); Lymphocytes % 29.2 % (15.3-44.8); MPV 9.1 fL (7.6-11.3); RBC Red Blood Cell Count 5.19 M/uL (4.33-5.43)
[2021-08-02 13:14] LABS: Potassium 4.2 mmol/L (3.5-5.1)
--- NOTE | 2021-08-02 14:21 | ER ---
Nurse's Notes [facility] Name: Terry Akins Sr Age: 41 yrs Sex: Male : 1980 Arrival Date: 08/02/2021 Time: 11:38 Bed 18 Private MD: Diagnosis: Left ear drainage, left periauricular discomfort -both of which are chronic Presentation: 08/02 11:40 Chief complaint: Patient states: the fluid is leaking out of my ear again, the spinal iw fluid is bloody red every morning and it drains to the back of my throat and it gags me, is having a lot of pressure on the side of his face, has been more angry than usual , has hx of CSF leak for past year , sees Dr. Kumar in [place] [facility]. Coronavirus screen: At this time, the client does not indicate any symptoms associated with coronavirus-19. Ebola Screen: Patient negative for fever greater than or equal to 101.5 degrees Fahrenheit, and additional compatible Ebola Virus Disease symptoms Patient denies exposure to infectious person. Patient denies travel to an Ebola-affected area in the 21 days before illness onset. No symptoms or risks identified at this time. Initial Sepsis Screen: Does the patient meet any 2 criteria? No. Patient's initial sepsis screen is negative. Does the patient have a suspected source of infection? No. Patient's initial sepsis screen is negative. Risk Assessment: Do you want to hurt yourself or someone else? Patient reports no desire to harm self or others. Onset of symptoms. 11:40 Method Of Arrival: Ambulatory iw 11:40 Acuity: SARITHA 3 iw Triage Assessment: 11:48 General: Appears in no apparent distress. comfortable. General: Behavior is calm, jh5 cooperative. Pain: Denies pain. Historical: - Allergies: 11:45 No Known Allergies; iw - PMHx: 11:44 CSF leak; GERD; Hypertension; iw - PSHx: 11:44 Appendectomy; carpal tunnel right; hernia; left hand tendonitis; Nerve transplantion; iw - Immunization history:: Adult Immunizations up to date. - Social history:: Smoking status: Smoking status: unknown. Screenin:48 Abuse screen: Denies threats or abuse. Denies injuries from another. Nutritional jh5 screening: No deficits noted. Tuberculosis screening: No symptoms or risk factors identified. Fall Risk None identified. Assessment: 12:51 Reassessment: Pt states; "I need that migraine cocktail. It's the Benadryl and i dont jh5 know the other, I start with a D i think"?. 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 pt tw2 informed that provider is with a critical pt and we would be with his as soon as possible. pt agreeable at this time. 14:12 Reassessment: Pt continues to ding call light asking every staff member he sees for jh5 either discharge papers, another blanket or pain medicine. Pt was educated that his needs are important, however, there are multiple patients being seen at this time and we will do our best to get him out of here as soon as possible per his request. Vital Signs: 11:43 BP 170 / 111; Pulse 91; Resp 18; Temp 98.3; Pulse Ox 100% on R/A; Weight 131.54 kg; iw Height 6 ft. 2 in. (187.96 cm); 14:16 BP 168 / 105; Pulse 70; Resp 10; Temp 98.7; Pulse Ox 97% ; jh5 11:43 Body Mass Index 37.23 (131.54 kg, 187.96 cm) iw ED Course: 11:38 Patient arrived in ED. ds1 11:42 Triage completed. iw 11:47 Haleigh Ho, RN is Primary Nurse. jh5 11:47 Patient has correct armband on for positive identification. Placed in gown. Bed in low mh5 position. Call light in reach. Side rails up X 1. monitoring analyst on. Pulse ox on. NIBP on. 11:48 No provider procedures requiring assistance completed. jh5 12:01 EKG done, by ED staff, reviewed by Stephane Rizvi MD. mh5 12:02 Stephane Rizvi MD is Attending Physician. kdr 12:26 CT Head Brain wo Cont In Process Unspecified. EDMS 12:45 CBC with Diff Sent. jh5 12:45 Chem 7 Sent. jh5 14:16 Antipyretic given from triage as ordered by the ER provider. Arm band placed on right 5 wrist. Patient placed in an exam room. Administered Medications: 12:50 Drug: Zofran (Ondansetron) 4 mg Route: IVP; Site: left antecubital; [facility] 14:26 Drug: Lisinopril 20 mg Route: PO; [facility] Outcome: 14:16 Condition: good [facility] 14:20 Discharge ordered by . [facility] 14:45 Patient left the ED. [facility] Signatures: Dispatcher [employer] EDMS Stephane Rizvi MD MD kdr [place], Demi ds1 Glendy Hernadez RN RN iw Leti Flor RN RN 2 Nya Cage [facility] Haleigh Ho RN RN [facility] Corrections: (The following items were deleted from the chart) 11:45 11:43 BP 170 / 111; Pulse 91bpm; Resp 18bpm; Pulse Ox 100% RA; kaylin ewing
--- NOTE | 2021-08-02 14:21 | EDPHYS ---
Physician Documentation [facility] [place] [facility] Name: Terry Akins Sr Age: 41 yrs Sex: Male : 1980 Arrival Date: 08/02/2021 Time: 11:38 Bed 18 Private MD: ED Physician Stephane Rizvi HPI: 08/03 07:26 This 41 yrs old Black Male presents to ER via Ambulatory with complaints of Head kdr Pressure, Facial Pain. 07:26 The patient presents with fullness around his left ear and drainage. This is a common kdr recurrent problem with this individual. Patient has had interventions by ENT and others to provide a drainage system. Patient's been seen here a number of times for similar same complaints. Denies any significant systemic changes. He indicates he occasionally has bloody pinkish discharge. This is the same issue that he has presented with previously. He does not appear toxic or in any way seriously ill.. Onset: The symptoms/episode began/occurred This is a chronic problem that brings the patient to the emergency department on a semiregular basis. Patient states that there is no difference in his symptoms now as on prior presentations to the ED. Severity of symptoms: At their worst the symptoms were mild in the emergency department the symptoms are unchanged. The patient has experienced similar episodes in the past, chronically, This is been intermittent and ongoing for the last year or more. Routine care with his ENT. Historical: - Allergies: 08/02 11:45 No Known Allergies; iw - PMHx: 11:44 CSF leak; GERD; Hypertension; iw - PSHx: 11:44 Appendectomy; carpal tunnel right; hernia; left hand tendonitis; Nerve transplantion; iw - Immunization history:: Adult Immunizations up to date. - Social history:: Smoking status: Smoking status: unknown. ROS: 08/03 07:26 Constitutional: Negative for fever, chills, and weight loss, fullness to the left side kdr of his face and periauricular area Eyes: Negative for injury, pain, redness, and discharge, Neck: Negative for injury, pain, and swelling, Cardiovascular: Negative for chest pain, palpitations, and edema, Respiratory: Negative for shortness of breath, cough, wheezing, and pleuritic chest pain, Abdomen/GI: Negative for abdominal pain, nausea, vomiting, diarrhea, and constipation, Back: Negative for injury and pain, : Negative for injury, bleeding, discharge, and swelling, MS/Extremity: Negative for injury and deformity, Skin: Negative for injury, rash, and discoloration. Neuro: Negative for headache, weakness, numbness, tingling, and seizure activity. Psych: Negative for depression, anxiety, suicide ideation, homicidal ideation, and hallucinations, Allergy/Immunology: Negative for hives, rash, and allergies, Endocrine: Negative for neck swelling, polydipsia, polyuria, polyphagia, and marked weight changes, Hematologic/Lymphatic: Negative for swollen nodes, abnormal bleeding, and unusual bruising. ENT: Positive for drainage from ear(s), ear pain. Exam: 08/02 13:04 ECG was reviewed by the Attending Physician. kdr 18:50 Constitutional: This is a well developed, well nourished patient who is awake, alert, kdr and in no acute distress. Head/Face: Normocephalic, atraumatic. Eyes: Pupils equal round and reactive to light, extra-ocular motions intact. Lids and lashes normal. Conjunctiva and sclera are non-icteric and not injected. Cornea within normal limits. Periorbital areas with no swelling, redness, or edema. Neck: Trachea midline, no thyromegaly or masses palpated, and no cervical lymphadenopathy. Supple, full range of motion without nuchal rigidity, or vertebral point tenderness. No Meningismus. Chest/axilla: Normal chest wall appearance and motion. Nontender with no deformity. No lesions are appreciated. Cardiovascular: Regular rate and rhythm with a normal S1 and S2. No gallops, murmurs, or rubs. Normal PMI, no JVD. No pulse deficits. Respiratory: Lungs have equal breath sounds bilaterally, clear to auscultation and percussion. No rales, rhonchi or wheezes noted. No increased work of breathing, no retractions or nasal flaring. Abdomen/GI: Soft, non-tender, with normal bowel sounds. No distension or tympany. No guarding or rebound. No evidence of tenderness throughout. Back: No spinal tenderness. No costovertebral tenderness. Full range of motion. 18:50 ENT: External ear(s): are unremarkable, Ear canal(s): swelling, that is minimal, of the left canal, Thick secretions which the patient states is his normal discharge, TM's: bulging, dullness, on the left. Vital Signs: 11:43 BP 170 / 111; Pulse 91; Resp 18; Temp 98.3; Pulse Ox 100% on R/A; Weight 131.54 kg; iw Height 6 ft. 2 in. (187.96 cm); 14:16 BP 168 / 105; Pulse 70; Resp 10; Temp 98.7; Pulse Ox 97% ; jh5 11:43 Body Mass Index 37.23 (131.54 kg, 187.96 cm) iw MDM: 14:20 Patient medically screened. kdr 08/03 07:26 Data reviewed: vital signs, nurses notes, lab test result(s), radiologic studies. kdr Counseling: I had a detailed discussion with the patient and/or guardian regarding: the historical points, exam findings, and any diagnostic results supporting the discharge/admit diagnosis, lab results, radiology results, the need for outpatient follow up. ED course: Patient was stable in the emergency department. He was ambulatory and conversant without any indication of acute illness. Patient was completely nontoxic appearing at all times in the ED and vital signs were stable. I reviewed the CAT scan results with the patient and recommended close follow-up with his ENT. Patient was happy with the care provided the plan for discharge and follow-up. 08/02 12:12 Order name: CBC with Diff; Complete Time: 13:04 kdr 08/02 12:12 Order name: Chem 7; Complete Time: 13:42 [facility] 08/02 12:01 Order name: EKG - Nurse/Tech; Complete Time: 12:03 [facility] 08/02 12:12 Order name: CT Head Brain wo Cont; Complete Time: 13:04 kdr EC/22 13:04 Rate is 75 beats/min. Rhythm is regular, Sinus Rhythm with No ectopy. QRS [place] is kdr Normal. FL interval is normal. QRS interval is normal. QT interval is normal. Clinical impression: NSR w/ Non-specific ST/T Changes. Administered Medications: 12:50 Drug: Zofran (Ondansetron) 4 mg Route: IVP; Site: left antecubital; 5 14:26 Drug: Lisinopril 20 mg Route: PO; jh5 Disposition Summary: 08/02/21 14:20 Discharge Ordered Location: Home kdr Condition: Stable kdr Diagnosis - Left ear drainage, left periauricular discomfort -both of which are chronic kdr Followup: kdr - With: Private Physician - When: 2 - 3 days - Reason: If symptoms return, Further diagnostic work-up, Recheck today's complaints, Continuance of care, Re-evaluation by your physician Discharge Instructions: - Discharge Summary Sheet kdr Forms: - Medication Reconciliation Form kdr - Thank You Letter kdr - Antibiotic Education kdr - Prescription Opioid Use kdr - Work release form [facility] Prescriptions: - Lisinopril 20 mg Oral Tablet - take 1 tablet by ORAL route once daily; 20 tablet; Refills: 0, Product kdr Selection Permitted Signatures: Dispatcher [employer] EDMS Stephane Rizvi MD MD [facility] Glendy Hernadez RN RN Nya Cage [facility] Haleigh Ho RN RN [facility]
[2021-08-02] MEDS ORDERED: lisinopriL 20 MG TAB ONE (14:24)
[2021-08-02 14:53] VITALS: BP 168/105; TEMP 98.7; O2SAT 97
== END 2021-08-02 14:45 | disposition home or self-care (01) ==
LOC: ER 11:37
DX: H92.12 Otorrhea, left ear (principal); I10 Essential (primary) hypertension
CPT/HCPCS: 93005; 85025; 80048; 36415; 70450; 96374; 99284; J2405

== ENCOUNTER 2021-08-22 01:43 | Emergency (ER) | payer OTHER ==
--- OUTSIDE RECORDS SUMMARY | 2021-08-22 01:47 | XMS REPORT | Continuity of Care Document ---
:1980 Author Organization [facility] t Address [address] [place] [place] [id number] Care Team Providers Name Role Phone Hincks DO Primary Care Physician Stacy LOJA Attending Clinician Doctor Unassigned, Name [...] Policy Effective Expiration Source Number Date Date [facility] [id number] 2019 [facility] - MANAGED 00:00:00 [place] Me dical MEDICAIDCOMMUNITY [facility] [id number]/08/13 020-PresentP[address], [place] [address]Medicaid Problems Condition Condition Condition Status Onset Resolution Last Treating Co mments Source Name Details Category Date Date Treatment Clinician Date CSF CSF Disease Active [place] otorrhea otorrhea 9- Health 00:00: 00 Syncope Syncope Disease Active 2017-[address] [facility] l No known No known Disease Unive rs active active ity of problems problems [facility] Cubital Cubital Problem Active Univers tunnel tunnel [...] sleep e sleep ity of apnea, apnea, [place] adult adult Physici ans Migraine Migraine Problem Active Unive rs headache headache ity of [place] Physici ans Chronic Chronic Problem Active Univers GERD GERD ity of [place] Physici ans History of History of Problem Resolve Univers arthritis arthritis d ity of [place] Physici ans History of History of Problem Resolve Univers asthma asthma d ity of [place] [facility] ans History of History of Problem Resolve [facility] back pain back pain d ity of [place] [facility] ans History of History of Problem Resolve Univers Infection Infection d ity of of skin of skin [place] and and Physici subcutaneo subcutaneo an s [...] allergy ity of TABS [place] [facility] ans NO KNOWN Drug Active Univers ALLERGIE Class ity of S [facility] Family History Family Member Diagnosis Comments Start [...] History Uni versity of Family Member cerebrovascular [place] [facility] accident (CVA) Social History Social Habit Start Date Stop Date Quantity Comments Source Exposure to Not sure [facility] SARS-CoV-2 [place] Medical (event) Branch Alcohol intake 2021-05-03 2021-05-03 Current drinker [place] [facility] alth 00:00:00 00:00:00 of alcohol (finding) Tobacco use and 2021-04-18 2021-04-18 Smokeless tobacco [place] [facility] exposure 00:00:00 00:00:00 non-user History of 2018-04-25 Cigarette Smoker [facility] tobacco use 00:00:00 Sex Assigned At [birth year] [place] [facility] 00:00:00 00:00:00 Smoking Status Start Date Stop Date Source Unknown if [facility] Medical Branch Ex-smoker 2021-04-18 00:00:00 2021-04-18 00:00:00 [facility] [...] l Outpati ent Clinics ondansetron 2019-0 Yes [id number] 4mg Take 1 Univers (ZOFRAN 3-11 tablet by ity of ODT) 4 mg 00:00: mouth [place] disintegrat 00 every 8 Medic al ing tablet (eight) Branch hours as needed for Nausea and Vomiting (N/V). benzonatate 2019- Yes [id number] 200mg Take 1 Univers 200 mg 3-11 capsule by ity of capsule 00:00: mouth 3 [place] 00 (three) Medical times Branch daily as needed for Cough for up to 20 doses. ibuprofen 2019-0 Yes [id number] 600mg Take 1 U nivers 600 mg 3-11 tablet by ity of tablet 00:00: mouth [place] 00 every 6 Medical (six) Branch hours as needed for Pain (scale 4-6). SUMAtriptan SUMAtriptan Yes POURAN inject PRN Univers Succinate 6 Succinate 6 2-21 BENJA onset of ity of MG/0.5ML MG/0.5ML 00:00: M.D. the [place] Subcutaneou Subcutaneou 00 cluster Physici s Solution [...] MG Oral MG Oral 00:00: M.D. DAILY. [place] Tablet Tablet 00 Physici ans Zofran Zofran Yes Norah 1 tablet [facility] [place] [facility] Losartan Losartan Yes Norah [address] Potassium-H Potassium-H [place] [facility] Hydrocodone Hydrocodone Yes Norah [address] -Acetaminop -Acetaminop [place] as needed [facility] Adderall XR Adderall XR Yes Norah [address] [facility] [place] in the [facility] Omeprazole Omeprazole Yes Norah [address] [facility] [place] 30 minutes [facility] before [facility]oria morning l meal [facility] Dicyclomine Dicyclomine Yes Norah [address] HCl HCl [place] [facility] No known No [facility] Immunizations Ordered Immunization Filled Immunization Date Status Commen ts Source Name Name [email or web address] 2021-05-06 Completed [facility] Vaccination 00:00:00 COVID-19 [email or web address] 2021-04-15 Completed [facility] Vaccination 00:00:00 Fluzone Quadrivalent 2018-06-03 Completed Univ ersity of 0.5 ML Intramuscular 14:35:00 [place] Susp[place] Vital Signs Vital Name Observation Time Observation Value Comments Source BP Systolic 2018-10-02 155 mm[Hg] Location: [facility] ::00 Position: [place] Physician s Sitting BP Diastolic 2018-10-02 88 mm[Hg] Location: [facility] ::00 Position: [place] Physician s Sitting Height 2018-10-02 75 [in_us] [facility] ::00 [place] [facility] s Weight 2018-10-02 302 [lb_av] [facility] :: [place] [facility] s Body Mass Index 2018-10-02 37.75 kg/m2 University o f Calculated 15::00 [place] [facility] s Temperature 2018-10-02 98 [degF] Method: Oral [place] of :: [place] [facility] s Heart Rate 2018-10-02 63 /min Location: [facility] :: Apical; [place] [facility] s BP Systolic 2018-09-25 154 mm[Hg] Location: [facility] ::00 Position: [place] Physician s Sitting BP Diastolic 2018-09-25 98 mm[Hg] Location: [facility] ::00 Position: [place] Phys[facility] s Sitting Heart Rate 2018-09-25 70 /min Quality: Normal University o f 10:26:00 [place] [facility] s BP Systolic 2018-09-25 169 mm[Hg] Location: [facility] ::00 Position: [place] Physician s Sitting BP Diastolic 2018-09-25 65 mm[Hg] Location: [facility] ::00 Position: [place] [facility] s Sitting Heart Rate 2018-09-25 67 /min Quality: Normal University o f 10:25:00 [place] [facility] s Height 2018-09-25 75 [in_us] University of :25:00 [place] [facility] s Weight 2018-09-25 295 [lb_av] University of :: [place] [facility] s Body Mass Index 2018-09-25 36.87 kg/m2 University o f Calculated :25:00 [place] [facility] s Temperature 2018-09-25 98.3 [degF] Method: Oral University :25:00 [place] [facility] s O2 SAT 2018-09-25 99 % University of ::00 [place] [facility] s BP Systolic 2018-06-03 136 mm[Hg] Location: [facility] :09:00 Position: [place] Physician s Sitting BP Diastolic 2018-06-03 75 mm[Hg] Location: [facility] :: Position: [place] Physician s Sitting Height 2018-06-03 75 [in_us] University 14:09:00 [place] [facility] s Weight 2018-06-03 317 [lb_av] [facility] ::00 [place] Physician s Body Mass Index 2018-06-03 39.62 kg/m2 [place] o f Calculated 14:09:00 [place] [facility] s Temperature 2018-06-03 97.9 [degF] Method: Oral [facility] 14::00 [place] Phys[facility] s Heart Rate 2018-06-03 74 /min [facility] :: [place] Physician s Procedures Procedure Date / Time Performing Clinician Source Performed REFERRAL- REQUEST/RESPONSE 2021-03-30 05:01:00 Doctor Unassigned , [facility] [place] [facility] [U] XRAY KNEE 4 OR MORE 2018-07-24 00:00:00 [facility] VWS RIGHT [id number] Physicians Emg/Ncv 2018-06-20 00:00:00 [place] o f [place] [facility] H Sleep Lab - Sleep 2018-06-03 00:00:00 [facility] Study Split Night Physicians History of Cubital tunnel [facility] repair Physicians History of Appendectomy [facility] Physicians History of Wrist surgery [facility] Physicians History of [facility] xas Hemorrhoidectomy Physicians Plan of Care Planned Activity Planned Date Details Comments Source Diagnostic Test 2018-06-20 Emg/Ncv [[facility] Pending 00:00:00 Emg/Ncv] Physicians Diagnostic Test 2018-06-20 Emg/Ncv [code = [facility] Pending 00:00:00 Emg/Ncv] Physicians Future Scheduled COVID-[address] [facility] Test (1) [code = COVID-19 VACCINE (1)] Future Scheduled [facility] screening (procedure) [code = 620217229] Future Scheduled INFLUENZA VACCINE [facility] Test [code = INFLUENZA VACCINE] Encounters Start End Encounter Admission Attending Care Care Encounter Source Date/Time Date/Time Type Type Clinicians Facility Department ID 2021-08-02 2021-08-02 Telephone EUNICE Kumar [id number] [place] 00:00:00 00:00:[address] [id number] [facility] [id number] 2021-05-11 2021-05-11 [id number] 2021-04-06 2021-04-06 [facility] [id number] 2021-04-06 2021-04-06 [facility] [id number] [facility] 2021-03-31 2021-03-31 [facility] [id number] 2021-03-30 2021-03-30 Orders Doctor AICHA [id number] 00:00:00 00:00:00 Only Unassigned, ABDULKADIR [id number] [place] [facility] [id number] 2021-03-30 2021-03-30 Orders Doctor AICHA [id number] [facility] 00:00:00 00:00:00 Only Unassigned, ABDULKADIR [id number] ity of [place] [facility] [id number] Norberto as [id number] [address] 2021-03-21 2021-03-21 Ancillary 1, Gal UNIVERSIT [id number] 14:21:34 15:15:15 Visit Audio Sound Y [id number] [facility] [id number] BANK [id number] BLDG. 141 2021-03-21 2021-03-21 Outpatient R [facility] [id number] Univers 14:30:00 14:30:00 [id number] ity of [facility] 2021-03-21 2021-03-21 Outpatient R RENZO [facility] [id number] Univers 13:45:00 13:45:00 FABY [facility] 2021-01-17 2021-01-17 Emergency X BARBARA, [facility] [id number] Univers 19:28:00 19:28:00 LAURENCE [facility] 2020-11-21 2020-11-21 Emergency X [facility] [id number] Univers 15:51:00 15:51:00 [facility] 2020-07-20 2020-07-20 Outpatient [facility]MLC [facility] [id number] [facility] 2020-07-12 2020-07-12 Outpatient STLMLC [facility] [id number] [facility] 2020-05-23 2020-05-23 Outpatient STLMLC [facility] [id number] [facility] 2020-02-24 2020-02-24 [facility] [id number] 14:42:00 14:42:00 t [employer] [facility] Medicine l Medicine Outpati ent Clinics 2020-02-22 2020-02-22 [facility] [id number] 13:51:00 13:51:00 t WIB [place] [facility] Medicine l Medicine Outpati ent Clinics 2019-12-10 2019-12-10 [facility] [id number] 15:39:00 15:39:00 t WIB [employer] [facility] - [facility] Medicine l Medicine Outpati ent Clinics 2019-12-08 2019-12-08 [facility] [id number] 13:40:00 13:40:00 t [facility] Rel[employer] DA s - [facility] Medicine l Medicine Outpati ent Clinics 2019-12-07 2019-12-07 [facility] [id number] 12:05:00 12:05:[address] [facility] Clin[facility] 2019-11-16 2019-11-16 [facility] [id number] 11:00:00 11:00:00 t Bone [facility] and [facility] [place] 2019-10-21 2019-10-21 Emergency X Blaire PADRON [facility] E[facility] [id number] Univers 11:24:16 14:51:00 ity of [facility] 2019-09-29 2019-09-29 [facility] [id number] 09:21:00 09:21:00 t Bone [facility] [place] ent Clinics 2019-09-21 2019-09-21 [facility] [id number] 14:00:00 14:00:00 t Bone [facility] [place] [place] ent Clinics 2019-03-13 2019-03-13 Appointmen EUNICE LICONA [id number] Univers 09:00:00 09:00:00 t; Lesa RODRIGUEZ [facility] Mirna LICONA Physici M.D. [facility] 2018-10-02 2018-10-02 Appointmen EUNICE YOUSIF [id number] Univers 15:00:00 15:00:00 t; Asher JONES M.D. [place] Valery JONES M.D. [facility] 2018-09-25 2018-09-25 Appointmen EUNICE CEJA [facility] [id number] Univers 10:30:00 10:30:00 t; BRANT CEJA NP Health and ity stephen GUO NP Wellness [facility] Valery Scott [facility] 2018-09-22 2018-09-22 Appointmen EUNICE YOUSIF [id number] Univers 15:30:00 15:30:00 t; Asher JONES M.D. [place] Valery JONES M.D. [facility] 2018-08-22 2018-08-22 Appointmen EUNICE MUNOZ [id number] Univers 09:30:00 09:30:00 t; Lesa BRYANT y of [place], [place] Valery BRYANT M.D. ans 2018-07-29 2018-07-29 [facility] [id number] Univers 14:30:00 14:30:00 t; Lesa BRYANT y of [place], [place] Valery BRYANT M.D. ans 2018-07-25 2018-07-25 [facility] [id number] Univers 10:30:00 10:30:00 t; Lesa BRITT at [facility] y [place], [place] Valery BRITT M.D. ans 2018-07-22 2018-07-22 [facility] [id number] Univers 11:15:00 11:15:00 t; Lesa BRYANT [facility], Orthopedics Nor[place]to as Valery BRYANT M.D. ans 2018-07-15 2018-07-15 [facility] [id number] Univers 10:30:00 10:30:00 t; Lesa BRYANT [facility], Orthopedics Norberto as Valery BRYANT M.D. ans 2018-07-09 2018-07-09 [facility] [id number] Univers 13:00:00 13:00:00 t; Lesa BRYANT y [place], [place] Valery BRYANT M.D. ans 2018-06-30 2018-06-30 [facility] [id number] Univers 10:15:00 10:15:00 t; Lesa BRYANT [facility], Orthopedics Norberto as Valery BRYANT M.D. ans 2018-06-20 2018-06-20 [facility] [id number] Univers 13:40:00 13:40:00 t; SHANE MONROE [facility] ty of ROTH, Orthopedics T su MONROE NP Physi ci ans 2018-06-19 2018-06-19 [facility] [id number] Univers 08:15:00 08:15:00 t; SERJIO HUERTA D.O. ity [place], [place] Clarissa Physici ans 2018-06-17 2018-06-17 Appointmen EUNICE MUNOZ [facility] [id number] Univers 15:45:00 15:45:00 t; Lesa BRYANT [facility] itkatarzyna [facility], Orthopedics Norebrto as Valery BRYANT M.D. ans 2018-06-03 2018-06-03 Appointmen EUNICE HUERTA [facility] [id number] Univers 13:45:00 13:45:00 t; SERJIO HUERTA D.O. [facility] [place], [place] Clarissa Physici ans Results Test Description Test Time Test Comments Results Result [facility] e Comments [U] XRAY ELBOW 2 2018-06-17 Images [facility] [place] [facility] of S RIGHT [id number] 15:57:00 acquired, not [place] reported on Physicians this accession number. [U] XRAY WRIST 2018-06-17 Images [facility] 3 VWS RIGHT 15:57:00 acquired, not [place] [id number] reported on Physicians this accession number.
[2021-08-22] MEDS ORDERED: MORPHINE 4 MG/ML SYR ONE (02:53)
[2021-08-22] MEDS ORDERED: ONDANSETRON 4 MG/2 ML VIAL ONE (02:53)
[2021-08-22] MEDS ORDERED: HYDROMORPHONE HCL 1 MG/ML INJ ONE (03:12)
[2021-08-22] MEDS ORDERED: NA CHLORIDE 0.9% 1,000 ML ONE (03:14)
[2021-08-22] MEDS ORDERED: NA CHLORIDE 0.9% 500 ML ONE (03:14)
[2021-08-22] MEDS ORDERED: CEFTRIAXONE 1000 MG/VIAL ONE (03:14)
[2021-08-22] MEDS ORDERED: CLINDAMYCIN 900MG/D5W 900 MG/50 ML IVPB IV ONE (03:15)
[2021-08-22 03:25] LABS: Protime INR 0.86
[2021-08-22 03:26] LABS: Absolute Lymphocytes (CBC) 3.3 K/uL (0.7-4.9); Lymphocytes % 39.7 % (15.3-44.8); MPV 9.5 fL (7.6-11.3); RBC Red Blood Cell Count 5.19 M/uL (4.33-5.43)
[2021-08-22 04:14] LABS: ALT/SGPT 36 U/L (12-78); AST/SGOT 25 U/L (15-37); Albumin 3.6 g/dL (3.4-5.0); Alkaline Phosphatase 141 U/L (45-117); BUN Blood Urea Nitrogen 14 mg/dL (7-18); Bicarbonate 26 mmol/L (21-32); Bilirubin Direct < 0.1 mg/dL (0-0.2); Bilirubin Total 0.4 mg/dL (0.2-1.0); Glucose Level 134 mg/dL (74-106); NT PRO-BNP 17 pg/mL (<125); Potassium 3.9 mmol/L (3.5-5.1); Protein, Total 7.4 g/dL (6.4-8.2); Sodium Level 141 mmol/L (136-145)
--- NOTE | 2021-08-22 06:19 | EDPHYS ---
Physician Documentation [facility] Name: Terry Akins Sr Age: 41 yrs Sex: Male : 1980 Arrival Date: 08/22/2021 Time: 01:44 Bed 14 Private MD: NIKOLAS Physician Talon Whitt HPI: 08/22 03:08 This 41 yrs old Black Male presents to ER via Ambulatory with complaints of LEFT SIDE sin PAIN FROM FACE TO SHOULDER, Chest Pain > 30 y/o. 03:08 The patient or guardian reports chest pain that is located primarily in the anterior sin chest wall, left. Onset: 2 day(s) ago. Historical: - Allergies: 02:27 No Known Allergies; bb - PMHx: :27 CSF leak; GERD; Hypertension; bb - PSHx: 02:27 Appendectomy; carpal tunnel right; hernia; left hand tendonitis; Nerve transplantion; bb - Immunization history:: Client reports receiving the 2nd dose of the Covid vaccine. - Social history:: Smoking status: unknown. ROS: 03:09 Constitutional: Negative for fever, chills, and weight loss, Eyes: Negative for injury, sin pain, redness, and discharge, Neck: Negative for injury, pain, and swelling, Cardiovascular: Negative for chest pain, palpitations, and edema, Respiratory: Negative for shortness of breath, cough, wheezing, and pleuritic chest pain, Abdomen/GI: Negative for abdominal pain, nausea, vomiting, diarrhea, and constipation, Back: Negative for injury and pain, : Negative for injury, bleeding, discharge, and swelling, MS/Extremity: Negative for injury and deformity, Skin: Negative for injury, rash, and discoloration, Neuro: Negative for headache, weakness, numbness, tingling, and seizure, Psych: Negative for depression, anxiety, suicide ideation, homicidal ideation, and hallucinations, Allergy/Immunology: Negative for hives, rash, and allergies, Endocrine: Negative for neck swelling, polydipsia, polyuria, polyphagia, and marked weight changes, Hematologic/Lymphatic: Negative for swollen nodes, abnormal bleeding, and unusual bruising. 03:09 ENT: Positive for drainage from ear(s), ear pain. Exam: 03:09 Constitutional: This is a well developed, well nourished patient who is awake, alert, sin and in no acute distress. Head/Face: Normocephalic, atraumatic. Eyes: Pupils equal round and reactive to light, extra-ocular motions intact. Lids and lashes normal. Conjunctiva and sclera are non-icteric and not injected. Cornea within normal limits. Periorbital areas with no swelling, redness, or edema. Neck: Trachea midline, no thyromegaly or masses palpated, and no cervical lymphadenopathy. Supple, full range of motion without nuchal rigidity, or vertebral point tenderness. No Meningismus. Chest/axilla: Normal chest wall appearance and motion. Nontender with no deformity. No lesions are appreciated. Cardiovascular: Regular rate and rhythm with a normal S1 and S2. No gallops, murmurs, or rubs. Normal PMI, no JVD. No pulse deficits. Respiratory: Lungs have equal breath sounds bilaterally, clear to auscultation and percussion. No rales, rhonchi or wheezes noted. No increased work of breathing, no retractions or nasal flaring. Abdomen/GI: Soft, non-tender, with normal bowel sounds. No distension or tympany. No guarding or rebound. No evidence of tenderness throughout. Back: No spinal tenderness. No costovertebral tenderness. Full range of motion. Male : Normal genitalia with no discharge or lesions. Skin: Warm, dry with normal turgor. Normal color with no rashes, no lesions, and no evidence of cellulitis. MS/ Extremity: Pulses equal, no cyanosis. Neurovascular intact. Full, normal range of motion. Neuro: Awake and alert, GCS 15, oriented to person, place, time, and situation. Cranial nerves II-XII grossly intact. Motor strength 5/5 in all extremities. Sensory grossly intact. Cerebellar exam normal. Normal gait. Psych: Awake, alert, with orientation to person, place and time. Behavior, mood, and affect are within normal limits. 03:09 ENT: Ear canal(s): no acute changes, TM's: dullness, erythema, fluid levels, on the left. 03:09 ECG was reviewed by the Attending Physician. 06:18 ENT: non toxic, no mastoid erythema or edema , no fever , wbc normal , not cofused. [facility] Vital Signs: 02:24 BP 180 / 122; Pulse 85; Resp 20 S; Temp 97.1(TE); Pulse Ox 100% on R/A; bb 03:01 BP 167 / 98; Pulse 82; Resp 16; Pulse Ox 100% on R/A; Pain 10/10; kd3 03:54 BP 169 / 98; Pulse 82; Resp 16; Pulse Ox 97% on R/A; Pain 10/10; kd3 06:30 BP 143 / 47; Pulse 75; Resp 16; Pulse Ox 100% ; kd3 MDM: 02:44 Patient medically screened. sin 03:18 Differential diagnosis: otitis media, otitis externa, ruptured TM, acute otalgia, sin barotrauma , abnormal EKG, anxiety, pneumonia. HEART Score: History: Slightly Suspicious (0), ECG: Non specific repolarization disturbance / LBTB / PM (1), Age: < or = 45 years (0), Risk Factors: > or = 3 Risk factors for atherosclerotic disease (2), [Hypertension] [+ Family HX] [Obesity] Troponin: < or = 1 x Normal Limit (0), Total Score = 1. The patient was not given aspirin in the Emergency Department. Not indicated due to patient's past medical history. The patient's deep vein thrombosis risk score was calculated as follows: Total Score: 0. This patient was found to be at low risk for a deep vein thrombosis by using the Well's assessment criteria. The patient's pulmonary embolism risk score was calculated as follows: Total Score: 0-2 points. This patient was found to be at low risk for a pulmonary embolism by using the Well's assessment criteria. DESTINEY Risk Score: 1 - Three or more CAD risk factors, TOTAL SCORE = 1. Data reviewed: vital signs, nurses notes, lab test result(s), EKG, radiologic studies, CT scan, plain films. Data interpreted: family caseworker: rate is 82 beats/min. Test interpretation: by ED physician or midlevel provider: ECG, plain radiologic studies. Counseling: I had a detailed discussion with the patient and/or guardian regarding: the historical points, exam findings, and any diagnostic results supporting the discharge/admit diagnosis, lab results, radiology results, the need for outpatient follow up, for definitive care, an ENT specialist, a neurosurgeon. 06:20 Physician consultation: Flower Ashford MD was called at 06:15, after a discussion of the sin case, a recommendation for transfer for higher level of care is made, want pt to contact [facility] md ent TODAY. ED course: PT TO CALL [facility] ENT TODAY, CALL AND SEE. 08/22 03:03 Order name: Basic Metabolic Panel [facility] 08/22 03:03 Order name: CBC with Diff [facility] 08/22 03:03 Order name: LFT's [facility] 08/22 03:03 Order name: Magnesium [facility] 08/22 03:03 Order name: NT PRO-BNP; Complete Time: 06:09 [facility] 08/22 03:03 Order name: PT-INR; Complete Time: 03:53 [facility] 08/22 03:03 Order name: XRAY Chest (1 view) [facility] 08/22 03:03 Order name: Soft Tissue Neck W/Contr CT [facility] 08/22 03:04 Order name: Basic Metabolic Panel; Complete Time: 06:09 [facility] 08/22 03:04 Order name: CBC with Automated Diff; Complete Time: 03:53 [facility] 08/22 03:04 Order name: Liver (Hepatic) Function; Complete Time: 06:09 [facility] 08/22 03:04 Order name: Magnesium; Complete Time: 06:09 [facility] 08/22 03:28 Order name: Troponin High Sensitivity; Complete Time: 06:09 [facility] 08/22 03:03 Order name: EKG; Complete Time: 03:04 [facility] 08/22 03:03 Order name: Cardiac monitoring; Complete Time: 03:16 [facility] 08/22 03:03 Order name: EKG - Nurse/Tech; Complete Time: 03:17 [facility] 08/22 03:03 Order name: IV Saline Lock; Complete Time: 03:04 [facility] 08/22 03:03 Order name: Labs collected and sent; Complete Time: 03:40 [facility] 08/22 03:03 Order name: O2 Per Protocol; Complete Time: 03:17 [facility] 08/22 03:03 Order name: O2 Sat Monitoring; Complete Time: 03:17 [facility] 08/22 03:04 Order name: CT Head Brain wo Cont sin EC:09 Rate is 67 beats/min. Rhythm is regular. QRS [place] is Normal. MN interval is prolonged sin at 234 msec. QRS interval is normal. QT interval is normal. No Q waves. T waves are Normal. No ST changes noted. Clinical impression: NSR w/ Non-specific ST/T Changes and No evidence of ischemia. Interpreted by me. Reviewed by me. Administered Medications: 08:02 Discontinued: NS 0.9% 1000 ml IV at 125 ml/hr continuous jg9 03:04 Drug: morphine 4 mg Route: IVP; Site: left antecubital; kd3 03:04 Drug: Zofran (Ondansetron) 4 mg Route: IVP; Site: left antecubital; kd3 03:19 Drug: NS 0.9% 500 ml Route: IV; Rate: bolus; Site: left antecubital; kd3 03:24 Drug: Rocephin (cefTRIAXone) 2 grams Route: IV; Rate: per protocol; Site: left kd3 antecubital; 03:42 Drug: Clindamycin 900 mg Route: IVPB; Infused Over: 30 mins; Site: left antecubital; kd3 08:02 Follow up: Response: No adverse reaction jg9 03:58 Drug: Dilaudid (HYDROmorphone) 1 mg Route: IVP; Site: left antecubital; kd3 08:01 Follow up: Response: No adverse reaction; Other jg9 04:52 Drug: NS 0.9% 1000 ml Route: IV; Rate: 125 ml/hr; Site: left antecubital; kd3 06:30 Drug: levofloxacin 750 mg Volume: 150 ml; Route: IVPB; Infused Over: 90 mins; Site: kd3 left antecubital; 08:01 Follow up: IV Status: Completed infusion; IV Intake: 150ml jg9 Disposition Summary: 08/22/21 06:18 Discharge Ordered Location: Home sin Problem: new sin Symptoms: have improved sin Condition: Stable sin Diagnosis - Acute serous otitis media, recurrent, left ear sin - Acute mastoiditis - on chronic sin Followup: sin - With: Private Physician - When: 2 - 3 days - Reason: Recheck today's complaints, Continuance of care, Re-evaluation by your physician Followup: sin - With: - When: Tomorrow - Reason: Recheck today's complaints, Continuance of care, Re-evaluation by your physician Discharge Instructions: - Discharge Summary Sheet sin - Otitis Media, Adult sin - Otitis Media, Adult, [place] sin - Mastoiditis, Pediatric sin Forms: - Medication Reconciliation Form sin - Thank You Letter sin - Antibiotic Education sin - Prescription Opioid Use sin - Work release form ss Prescriptions: - Augmentin 875-125 mg Oral Tablet - take 1 tablet by ORAL route every 12 hours for 10 days; 20 tablet; Refills: 0, sin Product Selection Permitted - Tylenol-Codeine #3 300 mg-30 mg Oral - take 2 tablet by ORAL route every 4-6 hours; 20 tablet; Refills: 0, Product sin Selection Permitted - Medrol (Elpidio) 4 mg Oral Tablets, Dose Pack - take 1 tablet by ORAL route as directed - follow package instructions; 1 sin packet; Refills: 0, Product Selection Permitted - levofloxacin 750 mg Oral Tablet - take 1 tablet by ORAL route once daily; 10 tablet; Refills: 0, Product sin Selection Permitted Signatures: Dispatcher [employer] Talon Vargas MD MD cha Ballard, Brenda RN RN Jacqui Zafar RN RN kd3 Dorothy Shannon RN jg9 Corrections: (The following items were deleted from the chart) 03:28 03:04 TROPONIN (EMERG DEPT USE ONLY)+C.TOMÁS.FELIPE ordered. ED[facility] EDMS
--- NOTE | 2021-08-22 06:19 | ER ---
Nurse's Notes [facility] [place] [place] Name: Terry Akins Sr Age: 41 yrs Sex: Male : 1980 Arrival Date: 08/22/2021 Time: 01:44 Bed 14 Private MD: Diagnosis: Acute serous otitis media, recurrent, left ear;Acute mastoiditis-on chronic Presentation: 08/22 02:24 Chief complaint: Patient states: he is having facial pain radiating down his neck to bb his shoulder and chest is supposed to see a neurosurgeon for a CSF leak has a "tube". Coronavirus screen: At this time, the client does not indicate any symptoms associated with coronavirus-19. Ebola Screen: No symptoms or risks identified at this time. Initial Sepsis Screen: Does the patient meet any 2 criteria? No. Patient's initial sepsis screen is negative. Does the patient have a suspected source of infection? No. Patient's initial sepsis screen is negative. Risk Assessment: Do you want to hurt yourself or someone else? Patient reports no desire to harm self or others. Onset of symptoms is unknown. 02:24 Method Of Arrival: Ambulatory bb 02:24 Acuity: SARITHA 2 bb Triage Assessment: 02:47 General: Appears distressed, Behavior is calm, cooperative, appropriate for age. Pain: kd3 Complains of pain in left ear. Neuro: Level of Consciousness is awake, alert, obeys commands. Cardiovascular: No deficits noted. Respiratory: Airway is patent. GI: No deficits noted. : No deficits noted. Derm: No deficits noted. Musculoskeletal: No deficits noted. Historical: - Allergies: 02:27 No Known Allergies; bb - PMHx: 02:27 CSF leak; GERD; Hypertension; bb - PSHx: 02:27 Appendectomy; carpal tunnel right; hernia; left hand tendonitis; Nerve transplantion; bb - Immunization history:: Client reports receiving the 2nd dose of the Covid vaccine. - Social history:: Smoking status: unknown. Screenin:32 Abuse screen: Denies threats or abuse. Denies injuries from another. Nutritional kd3 screening: No deficits noted. Tuberculosis screening: No symptoms or risk factors identified. Fall Risk None identified. Assessment: 02:46 Pain: Pain radiates to left ear, back and left arm Pain began 2-3 days ago. kd3 Cardiovascular: No deficits noted. Patient's skin is warm and dry. Vital Signs: 02:24 BP 180 / 122; Pulse 85; Resp 20 S; Temp 97.1(TE); Pulse Ox 100% on R/A; bb 03:01 BP 167 / 98; Pulse 82; Resp 16; Pulse Ox 100% on R/A; Pain 10/10; kd3 03:54 BP 169 / 98; Pulse 82; Resp 16; Pulse Ox 97% on R/A; Pain 10/10; kd3 06:30 BP 143 / 47; Pulse 75; Resp 16; Pulse Ox 100% ; kd3 ED Course: 01:44 Patient arrived in ED. wm 02:27 Triage completed. bb 02:27 Arm band placed on Patient placed in an exam room, on a stretcher, on pulse oximetry. bb 02:29 Jacqui Arroyo, RN is Primary Nurse. kd3 02:32 Patient has correct armband on for positive identification. Bed in low position. Call kd3 light in reach. Side rails up X 1. 02:43 Talon Whitt MD is Attending Physician. sin 02:48 Inserted saline lock: 22 gauge in left antecubital area, using aseptic technique. kd3 03:01 NIBP on. Door closed. Noise minimized. Lights dimmed. Warm blanket given. kd3 03:02 Patient maintains SpO2 saturation greater than 95% on room air. kd3 03:40 Magnesium Sent. kd3 03:40 LFT's Sent. kd3 03:40 CBC with Diff Sent. kd3 03:40 Basic Metabolic Panel Sent. kd3 03:42 XRAY Chest (1 view) In Process Unspecified. EDMS 04:49 Soft Tissue Neck W/Contr CT In Process Unspecified. EDMS 04:49 CT Head Brain wo Cont In Process Unspecified. EDMS 06:18 Flower Ashford MD is Referral Physician. sin 06:56 Primary Nurse role handed off by Jacqui Arroyo, RN 2 06:57 Jacqui Arroyo, RN is Primary Nurse. kd3 Administered Medications: 08:02 Discontinued: NS 0.9% 1000 ml IV at 125 ml/hr continuous jg9 03:04 Drug: morphine 4 mg Route: IVP; Site: left antecubital; kd3 03:04 Drug: Zofran (Ondansetron) 4 mg Route: IVP; Site: left antecubital; kd3 03:19 Drug: NS 0.9% 500 ml Route: IV; Rate: bolus; Site: left antecubital; kd3 03:24 Drug: Rocephin (cefTRIAXone) 2 grams Route: IV; Rate: per protocol; Site: left kd3 antecubital; 03:42 Drug: Clindamycin 900 mg Route: IVPB; Infused Over: 30 mins; Site: left antecubital; kd3 08:02 Follow up: Response: No adverse reaction jg9 03:58 Drug: Dilaudid (HYDROmorphone) 1 mg Route: IVP; Site: left antecubital; kd3 08:01 Follow up: Response: No adverse reaction; Other jg9 04:52 Drug: NS 0.9% 1000 ml Route: IV; Rate: 125 ml/hr; Site: left antecubital; kd3 06:30 Drug: levofloxacin 750 mg Volume: 150 ml; Route: IVPB; Infused Over: 90 mins; Site: 3 left antecubital; 08:01 Follow up: IV Status: Completed infusion; IV Intake: 150ml jg9 Intake: 08:01 IV: 150ml; Total: 150ml. jg9 Outcome: 06:18 Discharge ordered by . sin 06:55 Patient left the ED. marlyn 08:26 Patient left the ED. 1 Signatures: Dispatcher [employer] EDMS Talon Whitt MD MD cha Ballard, Brenda, RN RN bb [place], MyKena 2 Anand Badillo RN RN 1 Maddy Roberts Kyli, RN RN kd3 Dorothy Shannon RN RN jg9
[2021-08-22] MEDS ORDERED: Levofloxacin 750mg IV 750 MG/150 ML BAG IV ONE (06:27)
[2021-08-22 07:03] VITALS: TEMP 97.1
[2021-08-22 07:09] VITALS: BP 143/47; O2SAT 100
--- NOTE | 2021-08-22 08:35 | RAD REPORT ---
EXAM DESCRIPTION: RAD - Chest Single View - 08/22/2021 3:42 am CLINICAL HISTORY: COUGH Chest pain. COMPARISON: Chest Single View dated 04/05/2021; Chest Single View dated 02/23/2020; Chest Single View dated 04/12/2019 FINDINGS: Portable technique limits examination quality. Mild interstitial lung opacities are seen which may indicate mild viral infection. The heart is krishna l in size. No displaced fractures.
--- NOTE | 2021-08-22 11:53 | RAD REPORT ---
EXAM DESCRIPTION: CT Head/Brain Without Contrast CLINICAL HISTORY: Headache COMPARISON: CT Head/Brain Without Contrast 08/02/2021 TECHNIQUE: Head/brain axial images acquired without contrast. Coronal and sagittal reformats created . Exam performed according to departmental dose-optimization program which includes automated exposur e control, adjustment of mA and/or kV according to patient size, and/or use of iterative reconstructi on technique. FINDINGS: No midline shift, mass effect, intracranial hemorrhage, or hydrocephalus. Brain parenchyma unremarkable. Paranasal sinuses clear. Left mastoid air cells show marked opacification that may represent fluid/effusion or mastoiditis. No skull fracture or significant skull lesion. IMPRESSION: 1. No CT evidence of acute intracranial abnormality. 2. Marked left mastoid air cell opacification. This may represent fluid/effusion or mastoiditis. Electronically signed by: Alfredo Sharma MD 08/22/2021 5:11 AM JUVENILE DETENTION OFFICER Due to temporary technical issues with the PACS/Fluency reporting system, reports are being signed by the in house radiologists without review as a courtesy to insure prompt reporting. The interpreting radiologist is fully responsible for the content of the report.
--- NOTE | 2021-08-22 14:41 | RAD REPORT ---
EXAM DESCRIPTION: Soft Tissue Neck W/Contr CLINICAL HISTORY: 41 years Male, Facial pain;Pain COMPARISON: 09/02/2020 TECHNIQUE: CT of the neck soft tissues obtained following the intravenous administration of iodinate d contrast. This exam was performed according to our departmental dose-optimization program, which in cludes automated exposure control, adjustment of the mA and/or kV according to patient size and/or us e of iterative reconstruction technique. FINDINGS: Soft tissue: No abnormality of the visualized globes and intraorbital contents. The paroti d and submandibular glands are unremarkable. The tongue base is symmetric. Mild prominence of the ton sils without fluid collection. Parapharyngeal or retropharyngeal soft tissues are unremarkable. Few m ildly prominent lymph nodes are likely reactive. The visualized thyroid gland is unremarkable. Normal epiglottis. Bones: Multilevel endplate spondylosis and facet arthropathy of the cervical spine. No acute facial b one fractures. Opacities in the left mastoid air cells. IMPRESSION: 1. Mildly prominent tonsils without fluid collection. Findings could be seen with tonsil litis. 2. Stable left mastoid effusion. Electronically signed by: Kiran Simon 08/22/2021 5:27 AM WATER METER MECHANIC Due to temporary technical issues with the PACS/Fluency reporting system, reports are being signed by the in house radiologists without review as a courtesy to insure prompt reporting. The interpreting radiologist is fully responsible for the content of the report.
--- NOTE | 2021-08-23 07:50 | EKG ---
Test Date: 2021-08-22 Test Time: 03:08:43 Systems Lead: ELISA MEASUREMENT RESULTS: Intervals: Rate: 67 DE: 234 QRSD: 86 QT: 350 QTc: 369 [place]: P: 52 DE: 234 QRS: 44 T: 68 INTERPRETIVE STATEMENTS: Sinus rhythm with 1st degree AV block Nonspecific T wave abnormality Abnormal ECG Compared to ECG 08/02/2021 11:56:04 T-wave abnormality now present Left ventricular hypertrophy no longer present Myocardial infarct finding no longer present Electronically Signed On 08-23-21 07:45:55 MANAGER [employer]PORATE MARKETING by Agus Fisher
== END 2021-08-22 08:26 | disposition home or self-care (01) ==
LOC: ER 01:43
DX: H65.02 Acute serous otitis media, left ear (principal); H70.12 Chronic mastoiditis, left ear; I10 Essential (primary) hypertension
CPT/HCPCS: 93005; 85025; 80048; 36415; 83735; 85610; 80076; 84484; 83880; 70450; 70491; 71045; Q9967; J1170; J7040; J7030; J2405; 96365; 96366; 96375; 99284

== ENCOUNTER 2021-09-28 16:45 | Emergency (ER) | payer OTHER ==
--- OUTSIDE RECORDS SUMMARY | 2021-09-28 16:50 | XMS REPORT | Continuity of Care Document ---
:1980 Author Organization [facility] t Address [address] [place] [address] Care Team Providers Name Role Phone Asked, Pcp Primary Care Physician Unavailable COCO OSORIOWOOD Attending Clinician Unavailable George Attending Clinician Unavailable Rakesh OTT Attending Clinician Unavailable Stacy LOJA Attending Clinician Doctor Unassigned, [...] Admitting Clinician Unavailable Payers Payer Name Policy Policy Number Effective Expiration Source Type Date Date [facility] MEDICAID STAR [id number] 2018 00:00:00 [facility] [id number] 2019 [facility] 00:00:00 [place] Me dical MEDICAIDCOMMUNITY Branch HEALTH CHOICE [id number]/2019-PresentP.[address], [place] [address]Medicaid Problems Condition Condition Condition Status Onset Resolution Last Treating Co mments Source Name Details Category Date Date Treatment Clinician Date CSF CSF Disease Active [facility] otorrhea otorrhea 05-09 Health 00:00: 00 Syncope Syncope Disease Active 2017-08 [facility]osp[facility] 00 l No known No known Disease Unive rs active active ity of problems problems [facility] Cubital Cubital Problem Active Univers tunnel tunnel [...] sleep e sleep ity of apnea, apnea, [place] adult adult Physici ans Migraine Migraine Problem [...] d ity of of skin of skin [place] and and Physici subcutaneo subcutaneo an s [...] Active Univers ALLERGIE Class ity of S [facility] Acetamin drug Active Headache Univer s ophen [...] Quantity Comments Source Exposure to Not sure [place] [facility] SARS-CoV-2 (event) Alcohol intake 2021-09-07 2021-09-07 Current drinker [facility] alth 00:00:00 00:00:00 of alcohol (finding) Tobacco use and 2021-04-18 2021-04-18 Smokeless tobacco [facility] exposure 00:00:00 00:00:00 non-user History of 2018-04-25 Cigarette Smoker Methodis t tobacco use 00:00:00 Hospital Sex Assigned At [birth year] M [place] [facility] 00:00:00 00:00:00 Smoking Status Start Date Stop Date Source Unknown if ever smoked Universit y [facility] Ex-smoker 2021-04-18 00:00:00 2021-04-18 00:00:00 [facility] Medications Ordered Filled Start Stop Current Ordering Indication Dosage Frequency Signature Comments Components Source Medication Medication Date Date Medication? Clinician (SIG) Name Name ProAir HFA Yes INHALE 2 UT 108 (90 8-26 [facility]) 00:00: EVERY 6 MCG/ACT 00 HOURS inhaler ProAir HFA Yes INHALE 2 UT 108 (90 8-26 [facility]) 00:00: EVERY 6 MCG/ACT 00 HOURS inhaler ProAir HFA Yes INHALE 2 UT 108 (90 8-26 [facility]) 00:00: EVERY 6 MCG/ACT 00 HOURS inhaler ProAir HFA Yes INHALE 2 UT 108 (90 8-26 [facility]) 00:00: EVERY 6 MCG/ACT 00 HOURS inhaler ProAir HFA Yes INHALE 2 UT 108 (90 8-26 [facility]) 00:00: EVERY 6 MCG/ACT 00 HOURS inhaler ProAir HFA Yes INHALE 2 UT 108 (90 8-26 [facility]) 00:00: EVERY 6 MCG/ACT 00 HOURS inhaler ProAir HFA Yes INHALE 2 UT 108 [...] 00:00 for n/v Memoria 00 :00 l [facility] ent [facility] ondansetron Yes [id number] 4mg Take 1 Univers (ZOFRAN 3-11 tablet by ity of ODT) 4 mg 00:00: mouth [place] disintegrat 00 every 8 Medic al ing tablet (eight) Branch hours as needed for Nausea and Vomiting (N/V). benzonatate Yes [id number] 200mg Take 1 Univers 200 mg 3-11 capsule by ity of capsule 00:00: mouth 3 [place] 00 (three) Medical times Branch daily as needed for Cough for up to 20 doses. ibuprofen Yes [id number] 600mg Take 1 U nivers 600 mg 3-11 tablet by ity of tablet 00:00: mouth [place] 00 every 6 Medical (six) Branch hours as needed for Pain (scale 4-6). SUMAtriptan SUMAtriptan Yes POURAN inject PRN Univers Succinate 6 Succinate 6 2-21 BENJA onset of ity of MG/0.5ML MG/0.5ML 00:00: M.D. the [place] Subcutaneou Subcutaneou 00 cluster Physici s Solution [...] [place] as needed [facility] Clinics Losartan Losartan Yes Norah [address] Potassium-H Potassium-H [place] [facility] CTZ CTZ [facility] Hydrocodone Hydrocodone Yes Norah [address] -Acetaminop -Acetaminop [place] as needed [facility] - hen hen [facility] Adderall XR Adderall XR Yes Norah [address] [facility] [place] in the [facility] - morning [facility] Omeprazole Omeprazole Yes Norah [address] [facility] [place] 30 minutes [facility] - before [facility] morning l meal [facility] Dicyclomine Dicyclomine Yes Norah [address] HCl HCl [place] kes - [facility] No known No Methodi medications st Hospita l Immunizations Ordered Immunization Filled Immunization Date Status Commen ts Source Name Name COVID-19 Pfizer & 2021-05-06 Completed [facility] Vaccination 00:00:00 COVID-19 Pfizer & 2021-05-06 Completed [facility] Vaccination 00:00:00 COVID-19 Pfizer & 2021-05-06 Completed [facility] Vaccination 00:00:00 COVID-19 Pfizer & 2021-05-06 Completed [facility] Vaccination 00:00:00 COVID-19 Pfizer & 2021-05-06 Completed [facility] Vaccination 00:00:00 COVID-19 Pfizer & 2021-05-06 Completed [facility] Vaccination 00:00:00 COVID-19 Pfizer & 2021-05-06 Completed [facility] Vaccination 00:00:00 COVID-19 Pfizer & 2021-04-15 Completed [facility] Vaccination 00:00:00 COVID-19 Pfizer & 2021-04-15 Completed [facility] Vaccination 00:00:00 COVID-19 Pfizer & 2021-04-15 Completed [facility] Vaccination 00:00:00 COVID-19 Pfizer & 2021-04-15 Completed [facility] Vaccination 00:00:00 COVID-19 Pfizer & 2021-04-15 Completed [facility] Vaccination 00:00:00 COVID-19 Pfizer 12 & 2021-04-15 Completed [facility] Vaccination 00:00:00 COVID-19 Pfizer 12 & 2021-04-15 Completed [facility] Vaccination 00:00:00 Fluzone Quadrivalent 2018-06-03 Completed Univ ersity of 0.5 ML Intramuscular 14:35:00 Moshe jansen Physicians Suspension Vital Signs Vital Name Observation Time Observation Value Comments Source BP Systolic 2018-10-02 155 mm[Hg] Location: [facility] ::00 Position: [place] Physician s Sitting BP Diastolic 2018-10-02 88 mm[Hg] Location: [facility] :: Position: [place] Physician s Sitting Height 2018-10-02 75 [in_us] [facility] ::00 [place] Physician s Weight 2018-10-02 302 [lb_av] [facility] :: [place] Physician s Body Mass Index 2018-10-02 37.75 kg/m2 University o f Calculated 15:26:00 [place] Physician s Temperature 2018-10-02 98 [degF] Method: Oral [facility] 15::00 [place] Physician s Heart Rate 2018-10-02 63 /min Location: [facility] ::00 Apical; [place] Physician s BP Systolic 2018-09-25 154 mm[Hg] Location: [facility] ::00 Position: [place] Physician s Sitting BP Diastolic 2018-09-25 98 mm[Hg] Location: [facility] ::00 Position: [place] Physician s Sitting Heart Rate 2018-09-25 70 /min Quality: Normal University o f 10:26:00 [place] Physician s BP Systolic 2018-09-25 169 mm[Hg] Location: [facility] :25:00 Position: [place] Physician s Sitting BP Diastolic 2018-09-25 65 mm[Hg] Location: [facility] ::00 Position: [place] Physician s Sitting Heart Rate 2018-09-25 67 /min Quality: Normal University o f 10:25:00 [place] Physician s Height 2018-09-25 75 [in_us] University 10:25:00 [place] Physician s Weight 2018-09-25 295 [lb_av] [facility] 10:25:00 [place] Physician s Body Mass Index 2018-09-25 36.87 kg/m2 University o f Calculated 10:25:00 [place] Physician s Temperature 2018-09-25 98.3 [degF] Method: Oral University 10:25:00 [place] Physician s O2 SAT 2018-09-25 99 % University 10:: [place] Physician s BP Systolic 2018-06-03 136 mm[Hg] Location: [facility] :09:00 Position: [place] Physician s Sitting BP Diastolic 2018-06-03 75 mm[Hg] Location: [facility] :: Position: [place] Physician s Sitting Height 2018-06-03 75 [in_us] University :: [place] Physician s Weight 2018-06-03 317 [lb_av] University :: [place] Physician s Body Mass Index 2018-06-03 39.62 kg/m2 University o f Calculated 14::00 [place] Physician s Temperature 2018-06-03 97.9 [degF] Method: Oral [facility] :: [place] Physician s Heart Rate 2018-06-03 74 /min [facility] :: [place] Physician s Procedures Procedure Date / Time Performing Clinician Source Performed REFERRAL- REQUEST/RESPONSE 2021-03-30 05:01:00 Doctor Unassigned , [facility] [U] XRAY KNEE 4 OR MORE 2018-07-24 00:00:00 [facility] VWS RIGHT [id number] Physicians Emg/Ncv 2018-06-20 00:00:00 [place] [facility] [place] [facility] Physicians [facility] Sleep Lab - Sleep 2018-06-03 00:00:00 [facility] Study Split Night Physicians History of Cubital tunnel [facility] repair Physicians History of Appendectomy [facility] Physicians History of Wrist surgery [facility] Physicians History of [facility] xas Hemorrhoidectomy Physicians Plan of Care Planned Activity Planned Date Details Comments Source Diagnostic Test 2018-06-20 Emg/Ncv [code = [facility] Pending 00:00:00 Emg/Ncv] Physicians Diagnostic Test 2018-06-20 Emg/Ncv [code = [facility] Pending 00:00:00 Emg/Ncv] Physicians Future Scheduled COVID-19 VACCINE [facility] Test (1) [code = COVID-19 VACCINE (1)] Future Scheduled [facility] screening (procedure) [code = 379789127] Future Scheduled INFLUENZA VACCINE [facility] Test [code = INFLUENZA VACCINE] Encounters Start End Encounter Admission Attending Care Care Encounter Source Date/Time Date/Time Type Type Clinicians Facility Department ID 2021-09-28 Outpatient DAY, [facility] [id number] [place] 16:10:44 Health 2021-09-06 Outpatient Vazquez, [facility] [id number] [facility] 12[facility]12:10 John [id number] [facility] 2021-09-06 Outpatient [facility]azquez, [facility] [id number] 12:10:54 John [id number] [facility] 2021-09-06 Outpatient Vazquez, [facility] [id number] 12:09:52 John [id number] [facility] 2021-09-06 Outpatient Vazquez, [facility] [id number] 11:54:05 John [id number] [facility] 2021-09-06 Outpatient Vazquez, [facility] [id number] 11:06:57 John [id number] [facility] 2021-09-06 Outpatient Vazquez, [facility] [id number] 11:06:47 John [id number] [facility] 2021-09-22 2021-09-22 Telephone Day, Mj UTP 6400 1.2.840.114 [id number] [place] 00:00:00 00:00:[address] [id number] Health [id number] 2021-09-18 2021-09-18 Telephone Amelia Cameron UTP 6400 1.2.840.11 [id number] [place] 00:00:00 00:00:[address] [id number] Health [id number] 2021-09-07 2021-09-07 Office Stacy UTP 6400 1.2.840.114 [id number] [place] 13:30:00 14:35:02 Visit Roman JOYCE [id number] Health [id number] 2021-09-07 2021-09-07 Telephone Patki, UTP 6400 1.2.840.114 [id number] [place] 00:00:00 00:00:00 Roman JOYCE [id number] Health [id number] 2021-09-05 2021-09-05 Telephone Patki, UTP 6400 1.2.840.114 [id number] [place] 00:00:00 00:00:00 Roman JOYCE [id number] Health [id number] 2021-09-03 2021-09-03 Telephone Patki, UTP 6400 1.2.840.114 [id number] [place] 00:00:00 00:00:00 Roman JOYCE [id number] Health [id number] 2021-08-02 2021-08-02 Telephone Patki, UTP 6400 1.2.840.114 [id number] [place] 00:00:00 00:00:00 Roman JOYCE [id number] Health [id number] 2021-05-11 2021-05-11 Outpatient [facility] [id number] [facility] St 00:00:00 00:00:00 [facility] 2021-04-06 2021-04-06 Outpatient [facility] [id number] [facility] 2021-04-06 2021-04-06 Outpatient [facility] [id number] [facility] 2021-03-31 2021-03-31 Outpatient [facility] [id number] [facility] 2021-03-30 2021-03-30 Orders Doctor AICHA 1.2.840.114 [id number] 00:00:00 00:00:00 Only Unassigned, ABDULKADIR [id number] [facility] [id number] [id number] 2021-03-30 2021-03-30 Orders Doctor AICHA 1.2.840.114 [id number] Univers 00:00:00 00:00:00 Only Unassigned, ABDULKADIR [id number] ity of [facility] [id number] Norberto as [id number] [address] 2021-03-21 2021-03-21 Ancillary 1, Gal UNIVERSIT 1.2.840.114 [id number] 14:21:34 15:15:15 Visit Audio Sound Y [id number] Suite [facility] [id number] BANK [id number] BLDG. 141 2021-03-21 2021-03-21 Outpatient R [facility] [id number] Univers 14:30:00 14:30:00 [id number] [facility] 2021-03-21 2021-03-21 [id number] Univers 13:45:00 13:45:00 FABY [facility] 2021-01-17 2021-01-17 [facility] [id number] Univers 19:28:00 19:28:00 LAURENCE [facility] 2020-11-21 2020-11-21 Emergency X [facility] ERT [id number] Univers 15:51:00 15:51:00 [facility] 2020-07-20 2020-07-20 Outpatient [facility] [id number] [facility] 2020-07-12 2020-07-12 Outpatient [facility] [id number] [facility] 2020-05-23 2020-05-23 [facility] [id number] [facility]00 [facility] 2020-02-24 2020-02-24 [facility] [id number] 14:42:00 14:42:[address] [place] - Drive [facility] Medicine Outpati ent Clinics 2020-02-22 2020-02-22 [facility] [id number] 13:51:00 13:51:00 t [facility] Medicine Outpati ent Clinics 2019-12-10 2019-12-10 [facility] [id number] 15:39:00 15:39:00 t [facility] Medicine Outpati ent Clinics 2019-12-08 2019-12-08 [facility] [id number] 13:40:00 13:40:00 t [facility] Medicine Outpati ent Clinics 2019-12-07 2019-12-07 [facility] [id number] 12:05:00 12:05:00 t [facility] Medicine Outpati ent Clinics 2019-11-16 2019-11-16 [facility] [id number] 11:00:00 11:00:00 t [facility] ent Clinics 2019-10-21 2019-10-21 Emergency X Blaire PADRON [facility] ERT [id number] Univers 11:24:16 14:51:00 ity of [facility] 2019-09-29 2019-09-29 [facility] [id number] 09:21:00 09:21:00 t [facility] ent Clinics 2019-09-21 2019-09-21 [facility] [id number] 14:00:00 14:00:00 t [facility] ent Clinics 2019-03-13 2019-03-13 [address]ICE LICONA [facility] [id number] Univers 09:00:00 09:00:00 t; Lesa RODRIGUEZ y of Mirna LICONA Physici M.D. ans 2018-10-02 2018-10-02 Appointmen EUNICE YOUSIF [id number] Univers 15:00:00 15:00:00 t; Asher JONES M.D. [place] Valery JONES M.D. ans 2018-09-25 2018-09-25 Appointmen EUNICE CEJA [facility] [id number] Univers 10:30:00 10:30:00 t; BRANT CEJA NP Health and Luz NP Wellness [facility] Valery Santosberg ans 2018-09-22 2018-09-22 Appointmen EUNICE YOUSIFnna [id number] Univers 15:30:00 15:30:00 t; Asher JONES M.D. [place] Valery JONES M.D. ans 2018-08-22 2018-08-22 [address]ointmen [address]UNOZ [facility] [id number] Univers 09:30:00 09:30:00 t; Lesa [place] Valery BRYANT M.D. ans 2018-07-29 2018-07-29 Appointmen EUNICE MUNOZ [facility] [id number] Univers 14:30:00 14:30:00 t; Lesa BRYANT y of [place], [place] Valery BRYANT M.D. ans 2018-07-25 2018-07-[address] [facility] Orthopedics [id number] Univers 10:30:00 10:30:00 t; Lesa BRITT [facility] of Mirna SCHMITT Physici M.D. ans 2018-07-22 2018-07-22 Appointmen EUNICE MUNOZ [facility] [id number] Univers 11:15:00 11:15:00 t; Lesa BR[facility], Orthopedics Norberto as Valery BRYANT M.D. ans 2018-07-15 2018-07-15 [facility] [id number] Univers 10:30:00 10:30:00 t; Lesa BRYANT [facility], Orthopedics Norberto as Valery BRYANT M.D. ans 2018-07-09 2018-07-09 [facility] [id number] Univers 13:00:00 13:00:00 t; Lesa BRYANT [place], [place] Valery BRYANT M.D. ans 2018-06-30 2018-06-30 [facility] [id number] Univers 10:15:00 10:15:00 t; Lesa BRYANT [facility], Orthopedics Norberto as Valery BRYANT M.D. ans 2018-06-20 2018-06-20 Appointmen [facility] [id number] Univers 13:40:00 13:40:00 t; SHANE MONROE [facility] ty of [place], [place] SHANE MONROE Physi ci ans 2018-06-19 2018-06-19 [facility] [id number] Univers 08:15:00 08:15:00 t; [place] Tricia.OClemente Physici ans 2018-06-17 2018-06-17 [facility] [id number] Univers 15:45:00 15:45:00 t; Lesa BRYANT [facility], Orthopedics Norberto as Valery BRYANT M.D. ans 2018-06-03 2018-06-03 Appointmen EUNICE HUERTA [id number] Univers 13:45:00 13:45:00 t; SERJIO HUERTA [facility]. [facility] [place], [place] D.OClemente Physici ans Results Test Description Test Time Test Comments Results Result Sourc e Comments [U] XRAY ELBOW 2 2018-06-17 Images Universi ty of S RIGHT [id number] 15:57:00 acquired, not [place] reported on Physicians this accession number. [U] XRAY WRIST 2018-06-17 Images [facility] 3 VWS RIGHT 15:57:00 acquired, not [place] [id number] reported on Physicians this accession number.
[2021-09-28] MEDS ORDERED: PROMETHAZINE INJ 25 MG/ML AMP ONE (19:41)
--- NOTE | 2021-09-28 19:41 | ER ---
Nurse's Notes [facility] [place] [facility] Name: Terry Akins Sr Age: 41 yrs Sex: Male : 1980 Arrival Date: 09/28/2021 Time: 16:48 Bed 11 Private MD: Diagnosis: Headache;Other headache syndrome-CFS leak Presentation: 09/28 17:35 Chief complaint: Patient states: headache that began at 0200 this morning. Pt reports ss he occasionally has to have spinal fluid drained because of the excess and is supposed to schedule surgery. Coronavirus screen: Client denies travel out of the [place] in the last 14 days. Ebola Screen: Patient denies exposure to infectious person. Patient denies travel to an Ebola-affected area in the 21 days before illness onset. Initial Sepsis Screen: Does the patient meet any 2 criteria? No. Patient's initial sepsis screen is negative. Does the patient have a suspected source of infection? No. Patient's initial sepsis screen is negative. Risk Assessment: Do you want to hurt yourself or someone else? Patient reports no desire to harm self or others. Onset of symptoms was September 28, 2021. 17:35 Method Of Arrival: Ambulatory ss 17:35 Acuity: SARITHA 3 ss Triage Assessment: 20:20 Pain: Pain began chronically for the last year due to CSF leak Also complains of. ss7 20:21 General: Appears uncomfortable. ss7 Historical: - Allergies: 17:37 No Known Allergies; ss - PMHx: 17:37 CSF leak; GERD; Hypertension; ss - PSHx: 17:37 Appendectomy; carpal tunnel right; hernia; left hand tendonitis; Nerve transplantion; ss - Immunization history:: Client reports receiving the 2nd dose of the Covid vaccine. - Social history:: Smoking status: Reported history of juuling and/or vaping. Patient uses. - Family history:: not pertinent. Screenin:20 Abuse screen: Denies threats or abuse. Nutritional screening: No deficits noted. ss7 Tuberculosis screening: No symptoms or risk factors identified. Fall Risk None identified. Assessment: 20:18 General: Appears uncomfortable, Behavior is calm, cooperative, anxious. Pain: Complains ss7 of pain in headache Pain currently is 8 out of 10 on a pain scale. at worst was 13 out of 10 on a pain scale. Neuro: No deficits noted. Cardiovascular: No deficits noted. Respiratory: No deficits noted. GI: No deficits noted. : No deficits noted. EENT: No deficits noted. Derm: No deficits noted. Musculoskeletal: No deficits noted. 20:21 Reassessment: Pt ambulatory to check out with all personal belongings in NAD. Spouse to ss7 drive pt home. SS. Vital Signs: 17:35 BP 148 / 86; Pulse 70; Resp 16; Temp 97.8(TE); Pulse Ox 100% on R/A; Weight 154.22 kg; ss Height 6 ft. 3 in. (190.50 cm); Pain 10/10; 20:22 BP 155 / 93; Pulse 64; Resp 18; Pulse Ox 96% on R/A; ss7 17:35 Body Mass Index 42.50 (154.22 kg, 190.50 cm) ss Omar Coma Score: 19:35 Eye Response: spontaneous(4). Verbal Response: oriented(5). Motor Response: obeys sin commands(6). Total: 15. ED Course: 16:48 Patient arrived in ED. mr 17:37 Triage completed. ss 17:37 Arm band placed on right wrist. ss 19:18 Shalini Harris, BRYN is Primary Nurse. sf1 19:19 Talon Whitt MD is Attending Physician. sin 19:40 Dirk Patel MD is Referral Physician. sin 20:20 No provider procedures requiring assistance completed. ss7 20:21 Patient has correct armband on for positive identification. ss7 20:22 Patient did not have IV access during this emergency room visit. ss7 Administered Medications: 19:51 Drug: Demerol (meperidine) 75 mg Route: IM; Site: left ventrogluteal; sf1 20:23 Follow up: Response: No adverse reaction ss7 19:51 Drug: Phenergan (promethazine) 25 mg Route: IM; Site: right deltoid; sf1 20:23 Follow up: Response: No adverse reaction 7 19:52 Drug: Ketorolac 60 mg Route: IM; Site: right ventrogluteal; sf1 20:22 Follow up: Response: No adverse reaction 7 Outcome: 19:41 Discharge ordered by . sin 20:21 Discharged to home ambulatory, with family. ss7 20:21 Condition: improved 20:21 Discharge instructions given to patient, Prescriptions given X 2. 20:22 Patient left the ED. bb Signatures: Talon Whitt MD MD cha Rivera Ghislaine Maryan Dan, RN RN bb Natasha Holm, RN RN ss Steven, BRYN Loya RN sf1 Lenora Jenkins RN RN ss7
--- NOTE | 2021-09-28 19:41 | EDPHYS ---
Physician Documentation [facility] Name: Terry Akisn Sr Age: 41 yrs Sex: Male : 1980 Arrival Date: 09/28/2021 Time: 16:48 Bed 11 Private MD: ED Physician Talon Whitt HPI: 09/28 19:35 This 41 yrs old Black Male presents to ER via Ambulatory with complaints of Headache. sin 19:35 The patient complains of pain to the left ear, left latter day, left frontal area, left sin side of the back of head, left temporal area and left occipital area. The patient describes the headache as waxing and waning. Onset: The symptoms/episode began/occurred 3 week(s) ago. Associated signs and symptoms: The patient has no apparent associated signs or symptoms. Severity of symptoms: At its worst the pain was moderate, in the emergency department the pain is unchanged. Headache History: The patient has had previous headaches and this one is similar to previous episodes. The symptoms are alleviated by nothing. the symptoms are aggravated by movement, noise. The patient has experienced similar episodes in the past, multiple times. Historical: - Allergies: 17:37 No Known Allergies; ss - PMHx: 17:37 CSF leak; GERD; Hypertension; ss - PSHx: 17:37 Appendectomy; carpal tunnel right; hernia; left hand tendonitis; Nerve transplantion; ss - Immunization history:: Client reports receiving the 2nd dose of the Covid vaccine. - Social history:: Smoking status: Reported history of juuling and/or vaping. Patient uses. - Family history:: not pertinent. ROS: 19:35 Constitutional: Negative for fever, chills, and weight loss, Eyes: Negative for injury, sin pain, redness, and discharge, ENT: Negative for injury, pain, and discharge, Neck: Negative for injury, pain, and swelling, Cardiovascular: Negative for chest pain, palpitations, and edema, Respiratory: Negative for shortness of breath, cough, wheezing, and pleuritic chest pain, Abdomen/GI: Negative for abdominal pain, nausea, vomiting, diarrhea, and constipation, Back: Negative for injury and pain, : Negative for injury, bleeding, discharge, and swelling, MS/Extremity: Negative for injury and deformity, Skin: Negative for injury, rash, and discoloration, Psych: Negative for depression, anxiety, suicide ideation, homicidal ideation, and hallucinations, Allergy/Immunology: Negative for hives, rash, and allergies, Endocrine: Negative for neck swelling, polydipsia, polyuria, polyphagia, and marked weight changes, Hematologic/Lymphatic: Negative for swollen nodes, abnormal bleeding, and unusual bruising. 19:35 Neuro: Positive for headache. Exam: 19:35 Constitutional: This is a well developed, well nourished patient who is awake, alert, sin and in no acute distress. Head/Face: Normocephalic, atraumatic. Eyes: Pupils equal round and reactive to light, extra-ocular motions intact. Lids and lashes normal. Conjunctiva and sclera are non-icteric and not injected. Cornea within normal limits. Periorbital areas with no swelling, redness, or edema. ENT: Nares patent. No nasal discharge, no septal abnormalities noted. Tympanic membranes are normal and external auditory canals are clear. Oropharynx with no redness, swelling, or masses, exudates, or evidence of obstruction, uvula midline. Mucous membranes moist. Neck: Trachea midline, no thyromegaly or masses palpated, and no cervical lymphadenopathy. Supple, full range of motion without nuchal rigidity, or vertebral point tenderness. No Meningismus. Chest/axilla: Normal chest wall appearance and motion. Nontender with no deformity. No lesions are appreciated. Cardiovascular: Regular rate and rhythm with a normal S1 and S2. No gallops, murmurs, or rubs. Normal PMI, no JVD. No pulse deficits. Respiratory: Lungs have equal breath sounds bilaterally, clear to auscultation and percussion. No rales, rhonchi or wheezes noted. No increased work of breathing, no retractions or nasal flaring. Abdomen/GI: Soft, non-tender, with normal bowel sounds. No distension or tympany. No guarding or rebound. No evidence of tenderness throughout. Back: No spinal tenderness. No costovertebral tenderness. Full range of motion. Skin: Warm, dry with normal turgor. Normal color with no rashes, no lesions, and no evidence of cellulitis. MS/ Extremity: Pulses equal, no cyanosis. Neurovascular intact. Full, normal range of motion. Neuro: Awake and alert, GCS 15, oriented to person, place, time, and situation. Cranial nerves II-XII grossly intact. Motor strength 5/5 in all extremities. Sensory grossly intact. Cerebellar exam normal. Normal gait. Psych: Awake, alert, with orientation to person, place and time. Behavior, mood, and affect are within normal limits. Vital Signs: 17:35 BP 148 / 86; Pulse 70; Resp 16; Temp 97.8(TE); Pulse Ox 100% on R/A; Weight 154.22 kg; ss Height 6 ft. 3 in. (190.50 cm); Pain 10/10; 20:22 BP 155 / 93; Pulse 64; Resp 18; Pulse Ox 96% on R/A; ss7 17:35 Body Mass Index 42.50 (154.22 kg, 190.50 cm) ss Parker Coma Score: 19:35 Eye Response: spontaneous(4). Verbal Response: oriented(5). Motor Response: obeys sin commands(6). Total: 15. MDM: 19:19 Patient medically screened. sin 19:35 Differential diagnosis: cluster headache, temporal arteritis, tension headache. Data sin reviewed: vital signs, nurses notes. 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 Counseling: I had a detailed discussion with the patient and/or guardian regarding: the historical points, exam findings, and any diagnostic results supporting the discharge/admit diagnosis, the need for outpatient follow up, for definitive care, a neurologist, a neurosurgeon. Administered Medications: 19:51 Drug: Demerol (meperidine) 75 mg Route: IM; Site: left ventrogluteal; sf1 20:23 Follow up: Response: No adverse reaction 7 19:51 Drug: Phenergan (promethazine) 25 mg Route: IM; Site: right deltoid; sf1 20:23 Follow up: Response: No adverse reaction ss7 19:52 Drug: Ketorolac 60 mg Route: IM; Site: right ventrogluteal; sf1 20:22 Follow up: Response: No adverse reaction ss7 Disposition Summary: 09/28/21 19:41 Discharge Ordered Location: Home sin Problem: new sin Symptoms: have improved sin Condition: Stable sin Diagnosis - Headache sin - Other headache syndrome - CFS leak sni Followup: sin - With: Private Physician - When: 2 - 3 days - Reason: Recheck today's complaints, Continuance of care, Re-evaluation by your physician Followup: sin - With: Dirk Patel MD - When: 2 - 3 days - Reason: Recheck today's complaints, Continuance of care, Re-evaluation by your physician Discharge Instructions: - Discharge Summary Sheet sin - Spinal Headache sin - Migraine Headache sin - Migraine Headache, [id number] [facility] Forms: - Medication Reconciliation Form sin - Thank You Letter sin - Antibiotic Education sin - Prescription Opioid Use [facility] Prescriptions: - ondansetron 4 mg Oral tablet,disintegrating - take 1 tablet by ORAL route every 8 hours; 20 tablet; Refills: 0, Product [facility] Selection Permitted - Tylenol-Codeine #3 300 mg-30 mg Oral - take 2 tablet by ORAL route every 6 hours; 20 tablet; Refills: 0, Product [facility] Selection Permitted Signatures: Talon Whitt MD MD cha Smirch, Shelby, RN RN ss FillerShalini jansen RN RN sf1 Lenora Jenkins RN ss7
[2021-09-28] MEDS ORDERED: KETOROLAC 30 MG/ML INJ ONE (19:42)
[2021-09-28] MEDS ORDERED: MEPERIDINE HCL 25 MG/ML SYR ONE (19:42)
[2021-09-28] MEDS ORDERED: MEPERIDINE HCL 50 MG/ML ONE (19:42)
[2021-09-28 21:20] VITALS: TEMP 97.8
[2021-09-28 21:21] VITALS: BP 155/93; O2SAT 96
== END 2021-09-28 20:22 | disposition home or self-care (01) ==
LOC: ER 16:45
DX: G44.89 Other headache syndrome (principal); I10 Essential (primary) hypertension
CPT/HCPCS: 96372; 99283; J2550; J2175 ×2

== ENCOUNTER 2021-10-08 11:46 | Emergency (ER) | payer OTHER ==
--- OUTSIDE RECORDS SUMMARY | 2021-10-08 11:50 | XMS REPORT | Continuity of Care Document ---
:1980 [facility] t Address [address] [place] [address] Care Team Providers Name Role Phone Asked, Pcp Primary Care Physician Unavailable Vazquez Attending Clinician Unavailable DAY, L Attending Clinician Unavailable Alec Medeiros MD Attending Clinician Doctor Unassigned, Name Attending Clinician Unavailable 1, Audio Sound Suite Attending Clinician Unavailable RENZO Attending Clinician Unavailable Evaristo JIMENEZ Attending Clinician Unavailable MARIAN PADRON Attending Clinician Unavailable MONAE Attending Clinician Unavailable BENJA Attending Clinician Unavailable MARCIAL Attending Clinician Unavailable TAMMY Attending Clinician Unavailable KESHIA Attending Clinician Unavailable ROTH Attending Clinician Unavailable HINCREINIER Attending Clinician Unavailable DAY, L Admitting Clinician Unavailable MARIAN PADRON Admitting Clinician Unavailable Payers Payer Name Policy Type Policy Effective Expiration Source Number Date Date [facility] [id number] 2019 [facility] - MANAGED 00:00:00 [place] Me dical MEDICAIDCOMMUNITY Branch HEALTH CHOICE [id number]/08/13 020-PresentP[address], [place] [address]Medicaid Problems Condition Condition Condition Status Onset Resolution Last Treating Co mments Source Name Details Category Date Date Treatment Clinician Date CSF CSF Disease Active [facility] otorrhea otorrhea 05-09 Health 00:00: 00 Syncope Syncope Disease Active 2017-08 [facility] 00 l No known No known Disease Unive rs active active ity of problems problems [facility] Cubital Cubital Problem Active Univers tunnel tunnel [...] sleep e sleep ity of apnea, apnea, [place] adult adult Physici ans Migraine Migraine Problem [...] back pain back pain d ity of [place] Physici ans History of History of Problem [...] Active Univers ALLERGIE Class ity of S [facility] Acetamin drug Active Headache Univer s ophen [...] History Uni versity of Family Member cerebrovascular [place] [facility]icians accident (CVA) Social History Social Habit Start Date Stop Date Quantity Comments Source Exposure to Not sure [place] [facility] SARS-CoV-2 (event) Alcohol intake 2021-09-07 2021-09-07 Current drinker [facility] alth 00:00:00 00:00:00 of alcohol (finding) Tobacco use and 2021-04-18 2021-04-18 Smokeless tobacco [place] [facility] exposure 00:00:00 00:00:00 non-user History of 2018-04-25 Cigarette Smoker Methodis t tobacco use 00:00:00 Hospital Sex Assigned At [birth year] M [place] [facility] 00:00:00 00:00:00 Smoking Status Start Date Stop Date Source Unknown if ever smoked [facility] Ex-smoker 2021-04-18 00:00:00 2021-04-18 00:00:00 [place] [facility] Medications Ordered Filled Start Stop Current Ordering Indication Dosage Frequency Signature Comments Components Source Medication Medication Date Date Medication? Clinician (SIG) Name Name HYDROcodone 2021- Yes [id number] 1{tbl} Q6H Take 1 [facility] -acetaminop 10-04 03-04 tablet by Harpreet canchola ([place]) 00:00: 05:59 mouth 5-325 MG 00 :00 every 6 tablet (six) hours if needed (pain) for up to 8 days. ProAir HFA Yes INHALE 2 UT 108 [...] l Outpati ent Clinics ondansetron 2019-0 Yes [id number] 4mg Take 1 Univers (ZOFRAN 3-11 tablet by ity of ODT) 4 mg 00:00: mouth [place] disintegrat 00 every 8 Medic al ing tablet (eight) Branch hours as needed for Nausea and Vomiting (N/V). benzonatate 2019-0 Yes [id number] 200mg Take 1 Univers 200 mg 3-11 capsule by ity of capsule 00:00: mouth 3 [place] 00 (three) Medical times Branch daily as needed for Cough for up to 20 doses. ibuprofen Yes [id number] 600mg Take 1 U nivers 600 mg 3-11 tablet by ity of tablet 00:00: mouth [place] 00 every 6 Medical (six) Branch hours as needed for Pain (scale 4-6). SUMAtriptan SUMAtriptan Yes POURAN inject PRN Univers Succinate 6 Succinate 6 2-21 BENJA onset of ity of MG/0.5ML MG/0.5ML 00:00: M.D. the [place] Subcutaneou Subcutaneou 00 cluster Physici s Solution [...] [place] as needed [facility] Losartan Losartan Yes Norah [address] Potassium-H Potassium-H [place] [facility] Hydrocodone Hydrocodone Yes Norah [address] [facility] [address] -Acetaminop -Acetaminop [place] as needed [facility] Adderall XR Adderall XR Yes Norah [address] [facility] [place] in the [facility] Omeprazole Omeprazole Yes Norah [address] [facility] [place] 30 minutes [facility] morning l meal Outpati ent Clinics Dicyclomine Dicyclomine Yes Norah [address] HCl HCl [place] [facility] No known No Methodi medications [...] BP Systolic 2018-10-02 155 mm[Hg] Location: [facility] ::00 Position: [place] Physician s Sitting BP Diastolic 2018-10-02 88 mm[Hg] Location: [facility] :: Position: [place] Physician s Sitting Height 2018-10-02 75 [in_us] [facility] ::00 [place] Physician s Weight 2018-10-02 302 [lb_av] [facility] ::00 [place] Physician s Body Mass Index 2018-10-02 37.75 kg/m2 University o f Calculated 15:26:00 [place] Physician s Temperature 2018-10-02 98 [degF] Method: Oral [facility] 15::00 [place] Physician s Heart Rate 2018-10-02 63 /min Location: [facility] ::00 Apical; [place] Physician s BP Systolic 2018-09-25 154 mm[Hg] Location: [facility] :: Position: [place] Physician s Sitting BP Diastolic 2018-09-25 98 mm[Hg] Location: [facility] ::00 Position: [place] Physician s Sitting Heart Rate 2018-09-25 70 /min Quality: Normal University o f 10:26:00 [place] Physician s BP Systolic 2018-09-25 169 mm[Hg] Location: [facility] :25:00 Position: [place] Physician s Sitting BP Diastolic 2018-09-25 65 mm[Hg] Location: [facility] ::00 Position: [place] Physician s Sitting Heart Rate 2018-09-25 67 /min Quality: Normal University o f 10:25:00 [place] Physician s Height 2018-09-25 75 [in_us] University of 10:25:00 [place] Physician s Weight 2018-09-25 295 [lb_av] University 10:25:00 [place] Physician s Body Mass Index 2018-09-25 36.87 kg/m2 University o f Calculated 10:25:00 [place] Physician s Temperature 2018-09-25 98.3 [degF] Method: Oral [facility] 10:25:00 [place] Physician s O2 SAT 2018-09-25 99 % University 10::00 [place] Physician s BP Systolic 2018-06-03 136 mm[Hg] Location: [facility]; [facility] :09:00 Position: [place] Physician s Sitting BP Diastolic 2018-06-03 75 mm[Hg] Location: [facility] :: Position: [place] Physician s Sitting Height 2018-06-03 75 [in_us] University ::00 [place] Physician s Weight 2018-06-03 317 [lb_av] University ::00 [place] Physician s Body Mass Index 2018-06-03 39.62 kg/m2 University o f Calculated 14::00 [place] Phys[place] s Temperature 2018-06-03 97.9 [degF] Method: Oral University ::00 [place] Physician s Heart Rate 2018-06-03 74 /min University ::00 [place] Physician s Procedures Procedure Date / Time Performing Clinician Source Performed REFERRAL- REQUEST/RESPONSE 2021-03-30 05:01:00 Doctor Unassigned , [facility] [place] [facility] [U] XRAY KNEE 4 OR MORE 2018-07-24 00:00:00 [facility] VWS RIGHT [id number] Physicians Emg/Ncv 2018-06-20 00:00:00 University o [facility] Physicians [facility] Sleep Lab - Sleep 2018-06-03 00:00:00 [facility] Study Split Night Physicians History of Cubital tunnel [facility] repair Physicians History of Appendectomy [facility] Physicians History of Wrist surgery Univers [facility] Physicians History of University [facility] Hemorrhoidectomy Physicians Plan of Care Planned Activity Planned Date Details Comments Source Diagnostic Test 2018-06-20 Emg/Ncv [code = [facility] Pending 00:00:00 Emg/Ncv] Physicians Diagnostic Test 2018-06-20 [facility] Pending 00:00:00 Emg/Ncv] Physicians Future Scheduled COVID-[address] [facility] Test (1) [code = COVID-19 VACCINE (1)] Future Scheduled [facility] screening (procedure) [code = 473916915] Future Scheduled INFLUENZA VACCINE [facility] Test [code = INFLUENZA VACCINE] Encounters Start End Encounter Admission Attending Care Care Encounter Source Date/Time Date/Time Type Type Clinicians Facility Department ID 2021-09-06 Outpatient Vazquez, [facility] [id number] 12:12:10 John [id number] [facility] 2021-09-06 Outpatient Vazquez, [facility] [id number] 12:10:54 John [id number] [facility] 2021-09-06 Outpatient Vazquez, [facility] [id number] 12:09:52 John [id number] [facility] 2021-09-06 Outpatient Vazquez, [facility] [id number] 11:54:05 John [id number] [facility] 2021-09-06 Outpatient Vazquez, [facility] [id number] 11:06:57 John [id number] [facility] 2021-09-06 Outpatient Vazquez, [facility] [id number] 11:06:47 John [id number] [facility] 2021-10-03 2021-10-05 Inpatient DAY, [facility] [id number] [facility] 05:15:00 10:21:00 2021-10-04 2021-10-04 Telephone Day, Mj [facility] [id number] [place] 00:00:00 00:00:00 Alec JOYCE [id number] Health [id number] 2021-05-11 2021-05-11 Outpatient [facility] [id number] [facility] 2021-04-06 2021-04-06 Outpatient [facility] [id number] [facility] 2021-04-06 2021-04-06 Outpatient [facility] [id number] [facility] 2021-03-31 2021-03-31 Outpatient [facility] [id number] [facility] 2021-03-30 2021-03-30 Orders Doctor AICHA [id number] Univers 00:00:00 00:00:00 Only Unassigned, ABDULKADIR [id number] ity of [place] [facility] [id number] Norberto as [id number] [address] 2021-03-30 2021-03-30 Orders Doctor AICHA [id number] 00:00:00 00:00:00 Only Unassigned, ABDULKADIR [id number] [place] [facility] [id number] 2021-03-21 2021-03-21 Ancillary 1, Gal UNIVERSIT [id number] 14:21:34 15:15:15 Visit Audio Sound Y [id number] [facility] [id number] BANK [id number] BLDG. [id number] 2021-03-21 2021-03-21 Outpatient R [facility] [id number] Univers 14:30:00 14:30:00 [id number] [facility] 2021-03-21 2021-03-21 [id number] Univers 13:45:00 13:45:00 FABY [facility] 2021-01-17 2021-01-17 Emergency X BARBARA [facility] ERT [id number] Univers 19:28:00 19:28:00 LAURENCE [facility] 2020-11-21 2020-11-21 Emergency X [facility] ERT [id number] Univers 15:51:00 15:51:00 ity of [facility] 2020-07-20 2020-07-20 [facility] [id number] [facility] 2020-07-12 2020-07-12 Outpatient [facility] [id number] [facility] 00[facility]00 [facility] 2020-05-23 2020-05-23 [facility] [id number] [facility]00 [facility] 2020-02-24 2020-02-24 [facility] [id number] 14:42:00 14:42:00 t [employer] [place] [facility] Medicine Outpati ent Clinics 2020-02-22 2020-02-22 [facility] [id number] 13:51:00 13:51:00 t [facility] Medicine [facility] ent Clinics 2019-12-10 2019-12-10 [facility] [id number] 15:39:00 15:39:00 t [facility] Clin[facility] 2019-12-08 2019-12-08 [facility] [id number] 13:40:00 13:40:00 t [facility] Medicine Outpati ent Clinics 2019-12-07 2019-12-07 [facility] [id number] 12:05:00 12:05:00 t [facility] Medicine Outpati ent Clinics 2019-11-16 2019-11-16 [facility] [id number] 11:00:00 11:00:00 t [facility] 2019-10-21 2019-10-21 Emergency X Blaire PADRON [facility] ERT [id number] Univers 11:24:16 14:51:00 ity of [facility] 2019-09-29 2019-09-29 [facility] [id number] 09:21:00 09:21:00 t [facility] ent Clinics 2019-09-21 2019-09-21 [facility] [id number] [facility] 14:00:00 14:00:00 t [facility] ent Clinics 2019-03-13 2019-03-13 Appointmen EUNICE LICONA [facility] [id number] Univers 09:00:00 09:00:00 t; Lesa RODRIGUEZ y Mirna Ho Physici M.D. [facility] 2018-10-02 2018-10-02 Appointmen EUNICE YOUSIF [id number] Univers 15:00:00 15:00:00 t; ROBERT [facility] ity stephen YOUSIF M.D. [place] Valery JONES M.D. ans 2018-09-25 2018-09-25 Appointmen EUNICE CEJA [facility] [id number] Univers 10:30:00 10:30:00 t; BRANT CEJA NP Health and itIvan NP Wellness [facility] 2018-09-22 2018-09-22 Appointmen EUNICE YOUSIFa [id number] Univers 15:30:00 15:30:00 t; ROBERT [facility] ity stephen YOUSIF M.D. [place] Valery JONES M.D. ans 2018-08-22 2018-08-22 Appointmen EUNICE MUNOZ [id number] Univers 09:30:00 09:30:00 t; Lesa BRYANT y of Mirna MUNOZ Physici M.D. ans 2018-07-29 2018-07-29 Appointmen EUNICE MUNOZ [id number] Univers 14:30:00 14:30:00 t; Lesa BRYANT y of Mirna MUNOZ Physici M.D. ans 2018-07-25 2018-07-25 [facility] [id number] Univers 10:30:00 10:30:00 t; Lesa BRITT at [place], [place] Valery BRITT M.D. ans 2018-07-22 2018-07-22 [id number] Univers 11:15:00 11:15:00 t; Lesa BRYANT [facility], Orthopedics Norberto as Valery BRYANT M.D. ans 2018-07-15 2018-07-15 [facility] [id number] Univers 10:30:00 10:30:00 t; Lesa [facility]ANT [facility] Norberto as Valery BRYANT M.D. ans 2018-07-09 2018-07-09 [facility] [id number] Univers 13:00:00 13:00:00 t; Lesa BRYANT [place], [place] Val[place] BRYANT M.D. ans 2018-06-30 2018-06-30 [facility] [id number] Univers 10:15:00 10:15:00 t; Lesa BRYANT [facility], Orthopedics Norberto as Valery BRYANT M.D. ans 2018-06-20 2018-06-20 [facility] [id number] Univers 13:40:00 13:40:00 t; [facility], Orthopedics T su MONROE NP Physi ci ans 2018-06-19 2018-06-19 [facility] [id number] Univers 08:15:00 08:15:00 t; SERJIO HUERTA D.O. ity of [place], [place] Clarissa Physicsp ans 2018-06-17 2018-06-17 [facility] [id number] Univers 15:45:00 15:45:00 t; Lesa BRYANT [facility], Orthopedics Norberto as Valery BRYANT M.D. ans 2018-06-03 2018-06-03 Appointmen EUNICE HUERTA [id number] Univers 13:45:00 13:45:00 t; SERJIO HUERTA D.O. [facility] D[facility]. Physici ans Results Test Description Test Time Test Comments Results Result Sour e Comments [U] XRAY ELBOW 2 2018-06-17 Images [facility] RIGHT [id number] 15:57:00 acquired, not [place] reported on Physicians this accession number. [U] XRAY WRIST 2018-06-17 Images University of [facility] 3 VWS RIGHT 15:57:00 acquired, not [place] [id number] reported on Physicians this accession number.
[2021-10-08] MEDS ORDERED: ACETAMINOPHEN 500 MG TAB ONE (12:31)
[2021-10-08] MEDS ORDERED: METOCLOPRAMIDE 10 MG/2mL INJ ONE (12:31)
[2021-10-08] MEDS ORDERED: HYDROMORPHONE HCL 0.5 MG/0.5 ML INJ ONE ×2 (12:32→15:53)
[2021-10-08] MEDS ORDERED: NA CHLORIDE 0.9% 1,000 ML ONE (12:32)
[2021-10-08 12:39] LABS: Absolute Lymphocytes (CBC) 1.3 K/uL (0.7-4.9); Hematocrit 45.1 % (39.6-49.0); Lymphocytes % 20.9 % (15.3-44.8); MPV 9.1 fL (7.6-11.3); RBC Red Blood Cell Count 5.32 M/uL (4.33-5.43)
--- NOTE | 2021-10-08 12:56 | RAD REPORT ---
EXAM DESCRIPTION: RAD - Chest Single View - 10/08/2021 12:49 pm CLINICAL HISTORY: post shunt COMPARISON: Chest Single View dated 08/22/2021; Chest Single View dated 04/05/2021; Chest Single View dated 02/23/2020; Chest Single View dated 04/12/2019 FINDINGS: Lines: IDENTIFICATION AND RECORDS COMMANDER shunt. Lungs: No evidence of edema or pneumonia. Pleural: No significant pleural effusions or pneumothorax. Cardiac: The heart size is within normal limits. Bones: No acute fractures. Other: IMPRESSION: No acute cardiopulmonary disease.
[2021-10-08 12:58] LABS: Albumin 3.8 g/dL (3.4-5.0); Bilirubin Direct 0.1 mg/dL (0-0.2); Bilirubin Total 0.5 mg/dL (0.2-1.0); Potassium 4.3 mmol/L (3.5-5.1); Protein, Total 7.8 g/dL (6.4-8.2)
[2021-10-08 13:18] LABS: Urine Blood Negative (Negative); Urine Glucose Negative (Negative); Urine Protein Negative (Negative)
--- NOTE | 2021-10-08 13:49 | RAD REPORT ---
EXAM DESCRIPTION: CT - Head Brain Wo Cont - 10/08/2021 1:25 pm CLINICAL HISTORY: pain recent shunt COMPARISON: Head Brain Wo Cont dated 08/22/2021; Head Brain Wo Cont dated 08/02/2021 TECHNIQUE: All CT scans are performed using dose optimization technique as appropriate and may inclu de automated exposure control or mA/KV adjustment according to patient size. FINDINGS: No intracranial hemorrhage, hydrocephalus or extra-axial fluid collection.No areas of brai n edema or evidence of midline shift. Interval placement for right frontal approach ventriculostomy. Slight decompression of the ventricular system is noted which is essentially completely decompressed. Mild soft tissue swelling at the ventriculostomy and reservoir site. The reservoir has some surround ing fluid. No evidence of shunt discontinuity. Trace pneumocephalus likely postoperative. The paranasal sinuses and mastoids are clear. IMPRESSION: Postsurgical changes from recent right-sided ventriculostomy placement. Fluid adjacent t o the reservoir may be postoperative. No hydrocephalus. Increased decompression of the lateral ventri cles is noted.
--- NOTE | 2021-10-08 13:51 | RAD REPORT ---
EXAM DESCRIPTION: CTAbdomen Pelvis W Contrast - 10/08/2021 1:36 pm CLINICAL HISTORY: abd pain recent shunt COMPARISON: Abdomen Pelvis W Contrast dated 06/19/2019; Abdomen Pelvis W Contrast dated 04/12/2019 TECHNIQUE: CT of the abdomen and pelvis was performed. All CT scans are performed using dose optimization technique as appropriate and may include automated exposure control or mA/KV adjustment according to patient size. FINDINGS: Lower chest: No acute abnormality. Liver: No acute abnormality or suspicious lesions. Biliary: No biliary ductal dilatation. Stomach: No significant focal abnormality. Duodenum: No significant focal abnormality. Pancreas: No significant abnormality. Spleen: No significant abnormality. Adrenal: No suspicious lesions. Kidney/ureter: No hydronephrosis. No renal calculi. Retroperitoneum: No retroperitoneal adenopathy. Vascular: No aneurysm. Bowel: No significant focal abnormality. Peritoneum: No ascites or free air. Bladder: Grossly unremarkable. Reproductive: No adnexal masses. Bones: No acute fracture. Other: Interval placement of a right-sided CROCODILE FARMER shunt. The peritoneal portion has retracted out of the abdominal cavity. A fluid collection is present measuring 8.7 by 8.4 cm . IMPRESSION: Right-sided CROCODILE FARMER shunt placement. The peritoneal portion of the shunt tubing has retracted and is not intraperitoneal. It terminates in the abdominal wall. A fluid collection is now present a long the end of the catheter in the abdominal wall.
--- NOTE | 2021-10-08 14:44 | EDPHYS ---
Physician Documentation [facility] Name: Terry Akins Sr Age: 41 yrs Sex: Male : 1980 Arrival Date: 10/08/2021 Time: 11:48 Bed 20 Private MD: ED Physician Akira De León HPI: 10/08 12:52 This 41 yrs old Black Male presents to ER via Wheelchair with complaints of Post jr11 Surgical Pain. 12:52 The patient complains of pain to the top of head and forehead. The patient describes jr11 the headache as aching. Onset: The symptoms/episode began/occurred just prior to arrival, today. Associated signs and symptoms: Pertinent positives: nausea, weakness, Pertinent negatives: neck stiffness, Photophobia sinus congestion. Severity of symptoms: At its worst the pain was severe, in the emergency department the pain is actually worse. Pt with h/u MANAGER WIND shunt placed 5 days ago by [facility]. Pt withe for both ADAMSON abd abdominal pain at site of shunt insertion. Historical: - Allergies: 11:59 Amoxicillin; ll1 - PMHx: 11:59 CSF leak; GERD; Hypertension; ll1 - PSHx: 11:59 Appendectomy; carpal tunnel right; hernia; left hand tendonitis; Nerve transplantion; ll1 shunt; - Immunization history:: Client reports receiving the 2nd dose of the Covid vaccine. - Social history:: Smoking status: Reported history of juuling and/or vaping. Patient denies any tobacco usage or history of. ROS: 12:52 Eyes: Negative for injury, pain, redness, and discharge, Neck: Negative for injury, jr11 pain, and swelling, Cardiovascular: Negative for chest pain, palpitations, and edema, Respiratory: Negative for shortness of breath, cough Back: Negative for injury and pain, : Negative for injury, bleeding, discharge, and swelling, MS/Extremity: Negative for injury and deformity, Skin: Negative for injury, rash, and discoloration, Psych: Negative for depression, anxiety, suicide ideation, homicidal ideation, and hallucinations, Allergy/Immunology: Negative for hives, rash, and allergies. Exam: 12:52 Constitutional: This is a well developed, well nourished patient who is awake, alert, jr11 and in moderate distress 2/2 pain 12:52 Head/Face: Normocephalic, atraumatic. Eyes: Extra-ocular motions intact. Lids and lashes normal. Conjunctiva and sclera are non-icteric and not injected. Cornea within normal limits. Periorbital areas with no swelling, redness, or edema. ENT: Nares patent. No nasal discharge, no septal abnormalities noted. Oropharynx with no redness, swelling, or masses, exudates, or evidence of obstruction, uvula midline. Mucous membranes moist. Neck: Trachea midline, no thyromegaly or masses palpated, and no cervical lymphadenopathy. Supple, full range of motion without nuchal rigidity, or vertebral point tenderness. No Meningismus. Respiratory: Lungs have equal breath sounds bilaterally, clear to auscultation and percussion. No rales, rhonchi or wheezes noted. No increased work of breathing, no retractions or nasal flaring. Abdomen/GI: TTP around incision, appropriate, no peritonitis Skin: incisions to scalp and abdomen c/d/i MS/ Extremity: Pulses equal, no cyanosis. Neurovascular intact. Full, normal range of motion. Neuro: Awake and alert, GCS 15, oriented to person, place, time, and situation. No gross motor or sensory deficits. 12:52 ECG was reviewed by the Attending Physician. Interpreted by me shows normal sinus jr11 rhythm, normal axis, normal intervals except for prolonged NE at 218, first-degree AV block. No acute ST changes Vital Signs: 12:00 Weight 156.49 kg; Height 6 ft. 3 in. (190.50 cm); Pain 10/10; ll1 12:03 BP 158 / 100; Pulse 96; Resp 22; Temp 99.0; Pulse Ox 100% ; cs9 13:52 BP 118 / 85; Pulse 64; Resp 17; Pulse Ox 99% ; Pain 2/10; eo2 14:00 BP 132 / 65; Pulse 69; Resp 14; Pulse Ox 100% ; eo2 15:00 BP 107 / 95; Pulse 75; Resp 13; Temp 98.4; Pulse Ox 96% ; eo2 16:00 BP 138 / 75; Pulse 76; Resp 17; Pulse Ox 98% ; Pain 3/10; eo2 16:18 Pain 3/10; eo2 12:00 Body Mass Index 43.12 (156.49 kg, 190.50 cm) ll1 MDM: 12:18 Patient medically screened. [facility] 12:52 Differential diagnosis: ADAMSON, hypertension. [facility] 14:44 Data reviewed: vital signs, nurses notes, lab test result(s), EKG. ED course: Spoke to piyush Dr Day telephone collector, requesting [place] for dislodged MANAGER WIND shunt to to see NSG. 10/08 12:19 Order name: Basic Metabolic Panel; Complete Time: 13:57 [facility] 10/08 12:19 Order name: Blood Culture Adult (2) [facility] 10/08 12:19 Order name: CBC with Diff; Complete Time: 13:57 [facility] 10/08 12:19 Order name: LFT's; Complete Time: 13:57 [facility] 10/08 12:19 Order name: Lactate; Complete Time: 13:57 [facility] 10/08 12:19 Order name: Protime (+inr); Complete Time: 13:57 [facility] 10/08 12:19 Order name: Ptt, Activated; Complete Time: 13:57 [facility] 10/08 12:19 Order name: Chest Single View XRAY; Complete Time: 13:57 [facility] 10/08 12:24 Order name: CT Head Brain wo Cont; Complete Time: 13:57 [facility] 10/08 12:24 Order name: CT Abd/Pelvis - IV Contrast Only; Complete Time: 13:57 [facility] 10/08 13:18 Order name: Urine Dipstick-Ancillary; Complete Time: 13:57 [facility] 10/08 14:24 Order name: SARS-COV-2 RT PCR (Document "Date of Onset" if Symptomatic) 10/08 12:19 Order name: Cardiac monitoring; Complete Time: 12:40 [facility] 10/08 12:19 Order name: EKG - Nurse/Tech; Complete Time: 12:40 [facility] 10/08 12:19 Order name: IV Saline Lock - Large Bore; Complete Time: 12:40 [facility] 10/08 12:19 Order name: Labs collected and sent; Complete Time: 12:40 [facility] 10/08 12:19 Order name: O2 Per Protocol; Complete Time: 12:40 [facility] 10/08 12:19 Order name: O2 Sat Monitoring; Complete Time: 12:40 [facility] 10/08 12:19 Order name: Urine Dipstick-Ancillary (obtain specimen); Complete Time: 13:13 jr11 Administered Medications: 12:35 Drug: Reglan (metoCLOPramide) 10 mg Route: IVP; Site: right antecubital; eo2 13:51 Follow up: Response: No adverse reaction eo2 12:39 Drug: NS 0.9% 1000 ml Route: IV; Rate: 1000 ml; Site: right antecubital; eo2 14:00 Follow up: Response: No adverse reaction; IV Status: Completed infusion; IV Intake: eo2 1000ml 12:39 Drug: Tylenol 1000 mg Route: PO; eo2 13:51 Follow up: Response: No adverse reaction; Pain is decreased eo2 12:40 Drug: Dilaudid (HYDROmorphone) 0.5 mg Route: IVP; Site: right antecubital; eo2 13:51 Follow up: Response: No adverse reaction; Pain is decreased eo2 15:52 Drug: Dilaudid (HYDROmorphone) 0.5 mg Route: IVP; Site: right antecubital; eo2 16:18 Follow up: Pain 3/10 Adult; Response: No adverse reaction; Pain is decreased eo2 16:42 Not Given (Physician Discretion): Dilaudid (HYDROmorphone) 0.5 mg IVP once; RASS on eo2 ADMIN: Combtv4, Very Agttd3, Agttd2, Rstlss1, AlertClm0, Drwsy-1, Lt Sdtn-2, Mod Sdtn-3, Dp Sdtn-4, UnArsble-5 Disposition Summary: 10/08/21 14:44 Transfer Ordered Transfer Location: [facility]11 Reason: Higher level of care jr11 Condition: Stable jr11 Problem: new jr11 Symptoms: are unchanged jr11 Accepting Physician: Vidal Vann(10/08/21 16:55) ss Diagnosis - Dislodged MANAGER WIND shunt jr11 - Headache jr11 - Abdominal pain, Generalized jr11 Forms: - Medication Reconciliation Form jr11 - SBAR form jr11 Signatures: Dispatcher [employer] EDNatasha Garcia RN RN ss Anand Badillo RN RN ll1 Mey Cassidy RN RN eo2 Akira De León MD MD jr11 Corrections: (The following items were deleted from the chart) 14:44 14:44 Vidal Vann jr11 jr11 16:55 14:44 Vidal Vann jr11 ss
--- NOTE | 2021-10-08 14:44 | ER ---
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 Medeiros). ll1 Significant pain since to head, neck, and RUQ surgical wound. On amoxicillin now. Subjective fever. Coronavirus screen: Vaccine status: Patient reports receiving the 2nd dose of the covid vaccine. Client denies travel out of the [place] in the last 14 days. At this time, the client does not indicate any symptoms associated with coronavirus-19. Ebola Screen: Patient denies travel to an Ebola-affected area in the 21 days before illness onset. Initial Sepsis Screen: Does the patient meet any 2 criteria? No. Patient's initial sepsis screen is negative. Does the patient have a suspected source of infection? Yes: Skin breakdown/wound. Risk Assessment: Do you want to hurt yourself or someone else? Patient reports no desire to harm self or others. Onset of symptoms was October 03, 2021. 12:00 Method Of Arrival: Wheelchair ll1 12:00 Acuity: ASRITHA 3 ll1 Triage Assessment: 12:03 General: Appears ill, Behavior is calm, cooperative, appropriate for age. Pain: ll1 Complains of pain in head/ RUQ. Historical: - Allergies: 11:59 Amoxicillin; ll1 - PMHx: 11:59 CSF leak; GERD; Hypertension; ll1 - PSHx: 11:59 Appendectomy; carpal tunnel right; hernia; left hand tendonitis; Nerve transplantion; ll1 shunt; - Immunization history:: Client reports receiving the 2nd dose of the Covid vaccine. - Social history:: Smoking status: Reported history of juuling and/or vaping. Patient denies any tobacco usage or history of. Screenin:04 Abuse screen: Denies threats or abuse. Denies injuries from another. Nutritional eo2 screening: No deficits noted. Tuberculosis screening: No symptoms or risk factors identified. Fall Risk None identified. Assessment: 12:04 General: Appears in no apparent distress. uncomfortable, Behavior is calm, cooperative. eo2 Pain: Complains of pain in face, abdomen and neck. Neuro: Level of Consciousness is awake, alert, obeys commands, Oriented to person, place, time, situation, Reports s/p brain shunt placement on 10/03/21 d/t CSF leakage, now with pain at surgical sites radiating to right parietal head to right neck into right abdomen, incisions without drainage, and intact. Cardiovascular: Denies chest pain, shortness of breath, Heart tones S1 S2 Capillary refill < 3 seconds. Respiratory: Airway is patent Breath sounds are clear bilaterally. Denies shortness of breath. GI: Abdomen is round Bowel sounds present X 4 quads. Reports lower abdominal pain. 15:51 Reassessment: Received order for dilaudid 0.5mg IV Push once from Dr. De León, order eo2 placed. Vital Signs: 12:00 Weight 156.49 kg; Height 6 ft. 3 in. (190.50 cm); Pain 10/10; ll1 12:03 BP 158 / 100; Pulse 96; Resp 22; Temp 99.0; Pulse Ox 100% ; cs9 13:52 BP 118 / 85; Pulse 64; Resp 17; Pulse Ox 99% ; Pain 2/10; eo2 14:00 BP 132 / 65; Pulse 69; Resp 14; Pulse Ox 100% ; eo2 15:00 BP 107 / 95; Pulse 75; Resp 13; Temp 98.4; Pulse Ox 96% ; eo2 16:00 BP 138 / 75; Pulse 76; Resp 17; Pulse Ox 98% ; Pain 3/10; eo2 16:18 Pain 3/10; eo2 12:00 Body Mass Index 43.12 (156.49 kg, 190.50 cm) ll1 ED Course: 11:48 Patient arrived in ED. mr 11:54 Akira De León MD is Attending Physician. jr11 11:54 Mey Cassidy, BRYN is Primary Nurse. eo2 11:59 Arm band placed on Patient placed in an exam room, on a stretcher. ll1 12:03 Triage completed. ll1 12:04 Patient has correct armband on for positive identification. school bus monitor on. Pulse eo2 ox on. NIBP on. Door closed. Noise minimized. 12:04 No provider procedures requiring assistance completed. eo2 12:25 Inserted saline lock: 22 gauge in right antecubital area, using aseptic technique. eo2 Blood collected. 12:40 Chest Single View XRAY Sent. eo2 12:49 Chest Single View XRAY In Process Unspecified. EDMS 13:25 CT Head Brain wo Cont In Process Unspecified. EDMS 13:36 CT Abd/Pelvis - IV Contrast Only In Process Unspecified. EDMS 14:[address] Mj Medeiros office called at [phone]/ message left with answering eb service/ if he does not call back in 20 minutes to call back and they will re page. 14:16 Neurosurgeon connected the clinical application consultant neurosurgeon clinical application consultant from [facility] with Dr. jordy De León for patient consultation. 14:25 initiated a transfer with Mikayla from the [facility] Transfer [place]. eb 14:33 administrative approval given by Mikayla Castellon Rn/ patient has been accepted to [facility] ER/ Dr. Vidal Vann has accepted the patient without conference with Dr. De León/ report to be called to [phone]. 15:22 Report given to Wendy Hernandez RN at [facility]. eo2 15:34 SARS-COV-2 RT PCR (Document "Date of Onset" if Symptomatic) Sent. cs9 16:42 Report given to [facility]. eo2 16:43 Patient transferred, IV remains in place. eo2 Administered Medications: 12:35 Drug: Reglan (metoCLOPramide) 10 mg Route: IVP; Site: right antecubital; eo2 13:51 Follow up: Response: No adverse reaction eo2 12:39 Drug: NS 0.9% 1000 ml Route: IV; Rate: 1000 ml; Site: right antecubital; eo2 14:00 Follow up: Response: No adverse reaction; IV Status: Completed infusion; IV Intake: eo2 1000ml 12:39 Drug: Tylenol 1000 mg Route: PO; eo2 13:51 Follow up: Response: No adverse reaction; Pain is decreased eo2 12:40 Drug: Dilaudid (HYDROmorphone) 0.5 mg Route: IVP; Site: right antecubital; eo2 13:51 Follow up: Response: No adverse reaction; Pain is decreased eo2 15:52 Drug: Dilaudid (HYDROmorphone) 0.5 mg Route: IVP; Site: right antecubital; eo2 16:18 Follow up: Pain 3/10 Adult; Response: No adverse reaction; Pain is decreased eo2 16:42 Not Given (Physician Discretion): Dilaudid (HYDROmorphone) 0.5 mg IVP once; RASS on eo2 ADMIN: Combtv4, Very Agttd3, Agttd2, Rstlss1, AlertClm0, Drwsy-1, Lt Sdtn-2, Mod Sdtn-3, Dp Sdtn-4, UnArsble-5 Intake: 14:00 IV: 1000ml; Total: 1000ml. eo2 Outcome: 14:44 ER care complete, transfer ordered by . piyush 16:43 Transferred by ground EMS to [facility]. eo2 16:43 Transferred 16:43 Condition: stable 16:43 Instructed on the need for transfer. 16:55 Patient left the ED. Signatures: Dispatcher [employer] Ghislaine Nathan Shelby, RN RN Alva Barney Lynsay, RN RN ll1 Josselin Mckeon cs9 Mey Cassidy RN RN eo2 Akira De León MD MD jr11
[2021-10-08 17:22] VITALS: TEMP 98.4
[2021-10-08 17:23] VITALS: BP 138/75; O2SAT 98
== END 2021-10-08 16:55 | disposition short-term general hospital (02) ==
LOC: ER 11:46
DX: T85.09XA Other mechanical complication of ventricular intracranial (communicating) shunt, initial encounter (principal); R10.84 Generalized abdominal pain; I10 Essential (primary) hypertension; Z88.1 Allergy status to other antibiotic agents; Z20.822 Contact with and (suspected) exposure to COVID-19
CPT/HCPCS: 96361; 93005; 87040 ×2; 85025; 80048; 36415; 85610; 80076; 83605; 85730; 81003; 70450; 74177; 71045; 96375; 96374; 99285; U0003; Q9967; J2765; J1170 ×2; J7030

== ENCOUNTER 2021-10-12 14:09 | Emergency (ER) | payer OTHER ==
--- OUTSIDE RECORDS SUMMARY | 2021-10-12 14:12 | XMS REPORT | Continuity of Care Document ---
:1980 Author Organization [facility] t Address [address] [place] [address] Care Team Providers Name Role Phone Asked, [...] Attending Clinician Unavailable BRADLEY Attending Clinician Unavailable DAY, L Admitting Clinician Unavailable MARIAN PADRON Admitting Clinician Unavailable Payers Payer Name Policy Type Policy Effective Expiration Source Number Date Date [facility] [id number] 2019 [facility] - MANAGED 00:00:00 [place] Me dical MEDICAIDCOMMUNITY Branch HEALTH CHOICE [id number]/08/13 020-Present[address], [place] [address]Medicaid Problems Condition Condition Condition Status Onset Resolution Last Treating Co mments Source Name Details Category Date Date Treatment Clinician Date CSF CSF Disease Active [place] otorrhea otorrhea 05-09 Health 00:00: 00 Syncope Syncope Disease Active 2017-08 [facility] 00 l No known No known Disease Unive rs active active ity of problems problems [facility] Cubital Cubital Problem Active Univers [...] sleep e sleep ity of apnea, apnea, [place] adult adult Physici ans Migraine Migraine Problem [...] Active Univers ALLERGIE Class ity of S [facility] Acetamin drug Active Headache Univer s ophen [...] Uni versity of Family Member malignant neoplasm Norebrto as Physicians Unknown Family history of Family History Uni versity of Family Member cerebrovascular [place] [facility] accident (CVA) Social History Social Habit Start Date Stop Date Quantity Comments Source Exposure to Not sure [facility] SARS-CoV-2 (event) Alcohol intake 2021-09-07 2021-09-07 Current drinker [facility] alth 00:00:00 00:00:00 of alcohol (finding) Tobacco use and 2021-04-18 2021-04-18 Smokeless tobacco [facility] exposure 00:00:00 00:00:00 non-user History of 2018-04-25 Cigarette Smoker Methodis t tobacco use 00:00:00 Hospital Sex Assigned At [birth year] M [facility] 00:00:00 00:00:00 Smoking Status Start Date Stop Date Source Unknown if ever smoked [facility] Ex-smoker 2021-04-18 00:00:00 2021-04-18 00:00:00 [place] [facility] Medications Ordered Filled Start Stop Current Ordering Indication Dosage Frequency Signature Comments Components Source Medication Medication Date Date Medication? Clinician (SIG) Name Name HYDROcodone 2021- Yes [id number] 1{tbl} Q6H Take 1 [facility] -acetaminop 2- 03-04 tablet by Harpreet canchola (Quinn) 00:00: 05:59 mouth 5-325 MG 00 :00 [...] 00 :00 l Outpati ent Clinics ondansetron 2019- Yes [id number] 4mg Take 1 Univers (ZOFRAN 3-11 tablet by ity of ODT) 4 mg 00:00: mouth [place] disintegrat 00 every 8 Medic al ing tablet (eight) Branch hours as needed for Nausea and Vomiting (N/V). benzonatate 2019- Yes [id number] 200mg Take 1 Univers 200 mg 3-11 capsule by ity of capsule 00:00: mouth 3 [place] 00 (three) Medical times Branch daily as needed for Cough for up to 20 doses. ibuprofen Yes [id number] 600mg Take 1 U nivers 600 mg [...] Commen ts Source Name Name COVID-19 Pfizer 12 & 2021-05-06 Completed [facility] Vaccination 00:00:00 COVID-19 Pfizer & 2021-04-15 Completed [facility] Vacc[facility] 00:00:00 Fluzone Quadrivalent 2018-06-03 Completed Univ ersity of 0.5 ML Intramuscular 14:35:00 [place] Sus[place] Vital Signs Vital Name Observation Time Observation Value Comments Source BP Systolic 2018-10-02 155 mm[Hg] Location: [facility] ::00 Position: [place] Physician s Sitting BP Diastolic 2018-10-02 88 mm[Hg] Location: [facility] ::00 Position: [place] Physician s Sitting Height 2018-10-02 75 [in_us] [facility] ::00 [place] Physician s Weight 2018-10-02 302 [lb_av] [facility] ::00 [place] Physician s Body Mass Index 2018-10-02 37.75 kg/m2 University o f Calculated 15:26:00 [place] Physician s Temperature 2018-10-02 98 [degF] Method: Oral [facility] 15::00 [place] Physician s Heart Rate 2018-10-02 63 /min Location: [facility] 15::00 Apical; [place] Physician s BP Systolic 2018-09-25 154 mm[Hg] Location: [facility] ::00 Position: [place] Physician s Sitting BP Diastolic 2018-09-25 98 mm[Hg] Location: [facility] ::00 Position: [place] Physician s Sitting Heart Rate 2018-09-25 70 /min Quality: Normal University o f 10:26:00 [place] Physician s BP Systolic 2018-09-25 169 mm[Hg] Location: [facility] 10:25:00 Position: [place] Physician s Sitting BP Diastolic 2018-09-25 65 mm[Hg] Location: [facility] :25:00 Position: [place] Physician s Sitting Heart Rate 2018-09-25 67 /min Quality: Normal University o f 10:25:00 [place] Physician s Height 2018-09-25 75 [in_us] University 10:25:00 [place] Physician s Weight 2018-09-25 295 [lb_av] University 10::00 [place] Physician s Body Mass Index 2018-09-25 36.87 kg/m2 University o f Calculated 10:25:00 [place] Physician s Temperature 2018-09-25 98.3 [degF] Method: Oral [facility] 10:25:00 [place] Physician s O2 SAT 2018-09-25 99 % University 10:25:00 [place] Physician s BP Systolic 2018-06-03 136 mm[Hg] Location: [facility]; [facility] :09:00 Position: [place] Physician s Sitting BP Diastolic 2018-06-03 75 mm[Hg] Location: [facility] ::00 Position: [place] Physician s Sitting Height 2018-06-03 75 [in_us] University :09:00 [place] Physician s Weight 2018-06-03 317 [lb_av] University ::00 [place] Physician s Body Mass Index 2018-06-03 39.62 kg/m2 University o f Calculated 14::00 [place] Physician s Temperature 2018-06-03 97.9 [degF] Method: Oral [facility] 14::00 [place] Physician s Heart Rate 2018-06-03 74 /min [facility] ::00 [place] Physician s Procedures Procedure Date / Time Performing Clinician Source Performed REFERRAL- REQUEST/RESPONSE 2021-03-30 05:01:00 Doctor Unassigned , [facility] [U] XRAY KNEE 4 OR MORE 2018-07-24 00:00:00 [facility] VWS RIGHT [id number] Physicians Emg/Ncv 2018-06-20 00:00:00 University o [facility] Physicians [facility] Sleep Lab - Sleep 2018-06-03 00:00:00 [facility] Study Split Night Physicians History of Cubital tunnel [facility] repair Physicians History of Appendectomy [facility] Physicians History of Wrist surgery [facility] Physicians History of [facility] xa Hemorrhoidectomy Physicians Plan of Care Planned Activity Planned Date Details Comments Source Diagnostic Test 2018-06-20 Emg/Ncv [code = [facility] Pending 00:00:00 Emg/Ncv] Physicians Diagnostic Test 2018-06-20 Emg/Ncv [facility] Pending 00:00:00 Emg/Ncv] Physicians Future Scheduled COVID-[address] [facility] Test (1) [code = COVID-19 VACCINE (1)] Future Scheduled [facility] Test screening (procedure) [code = 076273292] Future Scheduled INFLUENZA VACCINE [facility] Test [code = INFLUENZA VACCINE] Encounters Start End Encounter Admission Attending Care Care Encounter Source Date/Time Date/Time Type Type Clinicians Facility Department ID 2021-09-06 Out[facility], [facility] [id number] [facility] [address] 12:12:10 John [id number] [facility] 2021-09-06 Outpatient Vazquez, [facility] [id number] 12:10:54 John [id number] [facility] 2021-09-06 Outpatient Vazquez, [facility] [id number] 12:09:52 John [id number] [facility] 2021-09-06 Outpatient Vazquez, [facility] [id number] 11:54:05 John [id number] [facility] 2021-09-06 Outpatient Vazquez, [facility] [id number] 11:06:57 John [id number] [facility] 2021-09-06 Outpatient Vazquez, [facility] [id number] 11:06:47 John [id number] [facility] 2021-10-08 2021-10-10 Inpatient E DAY, [facility] [address] [facility] 19:58:00 09:48:00 2021-10-03 2021-10-05 Inpatient DAY, [facility] [id number] [facility] 05:15:00 10:21:00 2021-10-04 2021-10-04 Telephone Day, Mj [facility] 6400 [id number] [place] 00:00:[place] 00:00:00 [place] CHRISTINE [id number] [facility] [id number] 2021-05-11 2021-05-11 Outpatient [facility] [id number] [facility] 2021-04-06 2021-04-06 Outpatient [facility] [id number] [facility] 2021-04-06 2021-04-[address] [facility] [id number] [facility] 2021-03-31 2021-03-31 Outpatient [facility] [id number] [facility] 2021-03-30 2021-03-30 Orders Doctor AICHA [id number] Univers 00:00:00 00:00:00 Only Unassigned, ABDULKADIR [id number] [facility] [id number] [facility] as [id number] [address] 2021-03-30 2021-03-30 Orders Doctor AICHA [id number] 00:00:00 00:00:00 Only Unassigned, ABDULKADIR [id number] [facility] [id number] [facility] 2021-03-21 2021-03-21 Ancillary 1, Gal UNIVERSIT [id number] 14:21:34 15:15:15 Visit Audio Sound Y [id number] [facility] [id number] [facility] [id number] BLDG. 141 2021-03-21 2021-03-21 Outpatient R [facility] [id number] Univers 14:30:00 14:30:00 [id number] [facility] 2021-03-21 2021-03-21 [id number] Univers 13:45:00 13:45:00 FABY [facility] 2021-01-17 2021-01-17 [facility] [id number] Univers 19:28:00 19:28:00 LAURENCE [facility] 2020-11-21 2020-11-21 Emergency X [facility] ERT [id number] Univers 15:51:00 15:51:00 [facility] 2020-07-20 2020-07-20 [facility] [id number] [facility] 2020-07-12 2020-07-12 [facility] [id number] [facility] 2020-05-23 2020-05-23 [facility] [id number] [facility]00 [facility] 2020-02-24 2020-02-24 [facility] [id number] 14:42:00 14:42:00 t Verimatrix Roy s [facility] Outpati ent Clinics 2020-02-22 2020-02-22 [facility] [id number] 13:51:00 13:51:00 t [facility] Outpati ent Clinics 2019-12-10 2019-12-10 [facility] [id number] 15:39:00 15:39:00 t [facility] Outpati ent Clinics 2019-12-08 2019-12-08 [facility] [id number] 13:40:00 13:40:00 t [facility] Outpati ent Clinics 2019-12-07 2019-12-07 [facility] [id number] 12:05:00 12:05:00 t [facility] Outpati ent Clinics 2019-11-16 2019-11-16 [facility] [id number] 11:00:00 11:00:00 t [facility] ent Clinics 2019-10-21 2019-10-21 Emergency X Blaire PADRON [facility] ERT [id number] Univers 11:24:16 14:51:00 ity of [facility] 2019-09-29 2019-09-29 [facility] [id number] 09:21:00 09:21:00 t [facility] ent Clinics 2019-09-21 2019-09-21 [facility] [id number] 14:00:00 14:00:00 t [facility] ent Clinics 2019-03-13 2019-03-13 Appointmen EUNICE LICONA [id number] Univers 09:00:00 09:00:00 t; Lesa RODRIGUEZ y Mirna Ho Physici M.D. ans 2018-10-02 2018-10-02 Appointmen EUNICE YOUSIF [id number] Univers 15:00:00 15:00:00 t; Asher JONES M.D. [place] Valery JONES M.D. [facility] 2018-09-25 2018-09-25 Appointmen EUNICE CEJA [facility] [id number] Univers 10:30:00 10:30:00 t; BRANT CEJA NP Health and ity stephen GUO NP Wellness [facility] Valery Scott [facility] 2018-09-22 2018-09-22 Appointmen EUNICE YOUSIF [id number] Univers 15:30:00 15:30:00 t; Asher JONES M.D. [place] Valery JONES M.D. [facility] 2018-08-22 2018-08-22 Appointmen EUNICE MUNOZ [id number] Univers 09:30:00 09:30:00 t; Lesa BRYANT y Mirna Cyr Physici M.D. ans 2018-07-29 2018-07-29 AppointEUNICE Paul [id number] Univers 14:30:00 14:30:00 t; Lesa BRYANT y of [place], [place] Valery BRYANT M.D. ans 2018-07-25 2018-07-[id number] Univers 10:30:00 10:30:00 t; Lesa BRITT at [place], [place] Valery BRITT M.D. ans 2018-07-22 2018-07-22 [facility] [id number] Univers 11:15:00 11:15:00 t; Lesa BRYANT [facility], Orthopedics Norberto as Valery BRYANT M.D. ans 2018-07-15 2018-07-15 [facility] [id number] Univers 10:30:00 10:30:00 t; Lesa BRYANT [facility], Orthopedics Norberto as Valery BRYANT M.D. ans 2018-07-09 2018-07-09 [facility] [id number] Univers 13:00:00 13:00:00 t; Lesa BRYANT [place], [place] Valery BRYANT M.D. ans 2018-06-30 2018-06-30 [facility] [id number] Univers 10:15:00 10:15:00 t; Lesa BRYANT [facility], Orthopedics Norberto as Valery BRYANT M.D. ans 2018-06-20 2018-06-20 [facility] [id number] Univers 13:40:00 13:40:00 t; [facility], Orthopedics T exbrooklyn MONROE NP Physi ci ans 2018-06-19 2018-06-19 [facility] [id number] Univers 08:15:00 08:15:00 t; SERJIO HUERTA D.O. ity of [facility].OClemente Physici ans 2018-06-17 2018-06-17 [facility] [id number] Univers 15:45:00 15:45:00 t; Lesa [facility]ANT [facility] Norberto as Valery BRYANT M.D. ans 2018-06-03 2018-06-03 Appointmen EUNICE HUERTA [id number] Univers 13:45:00 13:45:00 t; SERJIO HUERTA D.O. [place], [place] Clarissa Physicsp ans Results Test Description Test Time Test Comments Results Result Sour e Comments [U] XRAY ELBOW 2 2018-06-17 Images Universi ty of [facility] RIGHT [id number] 15:57:00 acquired, not [place] reported on Physicians this accession number. [U] XRAY WRIST 2018-06-17 Images University [facility] 3 [facility] RIGHT 15:57:00 acquired, not [place] [id number] reported on Physicians this accession number.
[2021-10-12 14:57] LABS: Absolute Lymphocytes (CBC) 1.1 K/uL (0.7-4.9); Hematocrit 46.1 % (39.6-49.0); Lymphocytes % 6.3 % (15.3-44.8); MPV 9.1 fL (7.6-11.3); RBC Red Blood Cell Count 5.46 M/uL (4.33-5.43)
[2021-10-12 15:05] LABS: Protime INR 0.94
[2021-10-12 15:19] LABS: ALT/SGPT 27 U/L (12-78); AST/SGOT 16 U/L (15-37); Alkaline Phosphatase 112 U/L (45-117); BUN Blood Urea Nitrogen 13 mg/dL (7-18); Bicarbonate 25 mmol/L (21-32); Bilirubin Direct < 0.1 mg/dL (0-0.2); Bilirubin Total 0.4 mg/dL (0.2-1.0); Glucose Level 140 mg/dL (74-106); Lipase 59 U/L (73-393); NT PRO-BNP 57 pg/mL (<125); Protein, Total 8.3 g/dL (6.4-8.2); Sodium Level 140 mmol/L (136-145)
--- NOTE | 2021-10-12 15:31 | RAD REPORT ---
EXAM DESCRIPTION: CT - CTHCSPWOC - 10/12/2021 3:01 pm CLINICAL HISTORY: PAIN, headache, history of recent shunt placement or replacement, date of procedur e not detailed COMPARISON: Soft Tissue Neck W/Contr dated 08/22/2021; Head Brain Wo Cont dated 10/08/2021 TECHNIQUE: Axial 5 mm thick images of the head were obtained. Axial 2 mm thick images of the cervic al spine were obtained with sagittal and coronal reconstruction images generated and reviewed. All CT scans are performed using dose optimization technique as appropriate and may include automated exposure control or mA/KV adjustment according to patient size. FINDINGS: No intracranial hemorrhage, mass, edema or acute intracranial finding. No infarction es are present. There is no volume loss present. Shunt tube is in place via right frontal access site . Tip of the shunt is in the midline anterior frontal horn region matching the October 08 examinatio n. Ventricles are decompressed. No extra-axial fluid collections. Mastoid air cells and paranasal sin uses are clear. No globe or orbit abnormality seen. Cervical bodies are normal in height. There is straightening and slight reversal of the usual cervica l lordosis could be from muscle spasm or positioning artifact in the scanner. No subluxation abnormal ities. Anterior endplate spurring changes are present C4-C6. No disk space narrowing. No fracture or acute bony abnormality. Central canal detail is inherently limited. No paraspinal mass or hematoma. IMPRESSION: No shunt malfunction findings. Right frontal shunt tube positioning matches the October 08 study. Ventricles are decompressed. No acute brain parenchymal finding. Negative CT cervical spine examination for acute or significant finding.
[2021-10-12] MEDS ORDERED: NA CHLORIDE 0.9% 1,000 ML ONE (15:42)
[2021-10-12] MEDS ORDERED: PANTOPRAZOLE 40 MG INJ ONE (15:42)
[2021-10-12] MEDS ORDERED: MORPHINE 4 MG/ML SYR ONE (15:42)
[2021-10-12] MEDS ORDERED: ONDANSETRON 4 MG/2 ML VIAL ONE (15:42)
--- NOTE | 2021-10-12 16:13 | RAD REPORT ---
EXAM DESCRIPTION: RAD - Shuntogram - 10/12/2021 3:39 pm CLINICAL HISTORY: ABDOMINAL DISTENTION COMPARISON: Abdomen Pelvis W Contrast dated 10/08/2021 TECHNIQUE: Multiple projections of the head, neck, chest and abdomen/ pelvis obtained as a shuntogra m series. FINDINGS: No abnormal bend, kink or disruption of the BUSINESS OPERATIONS SPECIALIST shunt tubing. Shunt terminates in the right mid abdomen. No unexpected finding near the valve mechanism. Shunt tube enters via a right frontal a ccess site. Tip of the shunt is in the anterior midline. IMPRESSION: Negative shunt series
--- NOTE | 2021-10-12 17:00 | ER ---
Nurse's Notes [facility] Name: Terry Akins Sr Age: 41 yrs Sex: Male : 1980 Arrival Date: 10/12/2021 Time: 14:29 Bed 13 Private MD: Diagnosis: Vomiting;Nausea with vomiting, unspecified;Elevated white blood cell count Presentation: 10/12 15:18 Chief complaint: EMS states: abdominal pain, n/v, had a ICP shunt replaced a few days cb5 ago. Coronavirus screen: Client denies travel out of the [place] in the last 14 days. Ebola Screen: Patient negative for fever greater than or equal to 101.5 degrees Fahrenheit, and additional compatible Ebola Virus Disease symptoms. Initial Sepsis Screen: Does the patient meet any 2 criteria? No. Patient's initial sepsis screen is negative. Does the patient have a suspected source of infection? No. Patient's initial sepsis screen is negative. Risk Assessment: Do you want to hurt yourself or someone else? Patient reports no desire to harm self or others. 15:18 Method Of Arrival: EMS: [facility] cb5 15:18 Acuity: SARITHA 3 cb5 Triage Assessment: 14:30 General: Appears comfortable, Behavior is calm, cooperative, appropriate for age. Pain: cb5 Complains of pain in abdomen Pain currently is 4 out of 10 on a pain scale. Historical: - PSHx: 15:24 Appendectomy; carpal tunnel right; hernia; left hand tendonitis; Nerve transplantion; cb5 shunt; - Immunization history:: Adult Immunizations up to date. - Social history:: Smoking status: unknown. - Family history:: not pertinent. Screenin:30 Abuse screen: Denies threats or abuse. Denies injuries from another. Nutritional cb5 screening: No deficits noted. Tuberculosis screening: No symptoms or risk factors identified. Fall Risk None identified. Assessment: 14:30 General: Appears uncomfortable, obese, well groomed, well developed, Behavior is calm, cb5 cooperative, appropriate for age, restless. Pain: Complains of pain in abdomen Pain currently is 4 out of 10 on a pain scale. Neuro: Level of Consciousness is awake, alert, obeys commands, Oriented to person, place, time, situation, Appropriate for age Reports Having ICP shunt replaced a few days ago. Cardiovascular: No deficits noted. Respiratory: No deficits noted. GI: Reports lower abdominal pain, diarrhea, nausea, vomiting, dark stools. : No deficits noted. EENT: No deficits noted. Derm: No deficits noted. Musculoskeletal: No deficits noted. 15:00 General: Pt is having CT done. cb5 15:29 General: pt is not in ED department at this time. cb5 15:30 Reassessment: Patient and/or family updated on plan of care and expected duration. Pain cb5 level reassessed. 16:15 Pain: Complains of pain in abdomen Pain currently is 2 out of 10 on a pain scale. cb5 16:28 Reassessment: Patient and/or family updated on plan of care and expected duration. Pain cb5 level reassessed. Vital Signs: 15:18 BP 131 / 77; Pulse 80; Resp 16; Temp 98.6; Pulse Ox 99% ; Pain 4/10; cb5 ED Course: 14:29 Patient arrived in ED. ll1 14:30 Kimi Monsalve, BRYN is Primary Nurse. cb5 14:30 Arm band placed on. cb5 14:31 aTlon Whitt MD is Attending Physician. sin 14:54 Inserted saline lock: 22 gauge in right hand, using aseptic technique. Blood collected. tp1 14:54 Inserted saline lock: 20 gauge in left antecubital area, using aseptic technique. tp1 14:55 Missed attempt(s): 20 gauge in right antecubital area. Bleeding controlled, band aid tp1 applied, catheter tip intact. 15:00 CT Head C Spine In Process Unspecified. EDMS 15:22 Triage completed. cb5 15:25 Patient has correct armband on for positive identification. Bed in low position. Call cb5 light in reach. Side rails up X 1. 15:28 PT-INR Sent. cb5 15:28 Magnesium Sent. cb5 15:28 LFT's Sent. cb5 15:28 CBC with Diff Sent. cb5 15:28 Basic Metabolic Panel Sent. cb5 15:29 Type And Screen Sent. cb5 15:38 Shuntogram XRAY In Process Unspecified. EDMS 15:48 SARS-COV-2 RT PCR (Document "Date of Onset" if Symptomatic) Sent. cb5 Administered Medications: 15:47 Drug: morphine 4 mg Route: IVP; Site: left antecubital; cb5 15:47 Drug: Zofran (Ondansetron) 8 mg Route: IVP; Site: left antecubital; cb5 15:47 Drug: NS 0.9% 1000 ml Route: IV; Rate: 1 bolus; Site: left antecubital; cb5 15:48 Drug: ProTONIX (pantoprazole) 40 mg Route: IVP; Site: left antecubital; cb5 16:55 CANCELLED (Duplicate Order): Rocephin (cefTRIAXone) 2 grams IV at per protocol once; sin Given slow IV push per pharmarcy instructions 16:55 CANCELLED (Duplicate Order): vancoMYCIN 1 grams IVPB once over 2 hrs sin Outcome: 16:59 Discharge ordered by . sin 17:11 Patient left the ED. ss Signatures: Dispatcher [employer] EDMS Talon Whitt MD MD cha Smirch, Shelby, RN RN ss Anand Badillo RN RN ll1 Jennifer Mejia tp1 Kimi Monsalve RN RN cb5 Corrections: (The following items were deleted from the chart) 15:25 15:24 PMHx: GERD; cb5 cb5 15:25 15:24 PMHx: Hypertension; cb5 cb5 15:25 15:24 PMHx: CSF leak; 5 cb5 15:29 15:28 PROBNP+C.LAB.BRZ drawn and sent. [address]
--- NOTE | 2021-10-12 17:00 | EDPHYS ---
Physician Documentation [facility] Name: Terry Akins Sr Age: 41 yrs Sex: Male : 1980 Arrival Date: 10/12/2021 Time: 14:29 Bed 13 Private MD: ED Physician Talon Whitt HPI: 10/12 16:56 This 41 yrs old Black Male presents to ER via EMS with complaints of nausea and sin vomiting, food posioning. 16:56 The patient presents with abdominal pain in the upper abdomen, in the lower abdomen, sin abdominal distention in the upper abdomen, in the lower abdomen. Onset: The symptoms/episode began/occurred this morning. The patient presents to the emergency department with nausea, vomiting, that is continuous. Onset: The symptoms/episode began/occurred this morning. Possible causes: bad food exposure. The symptoms are aggravated by nothing. The symptoms are alleviated by nothing. Associated signs and symptoms: The patient has no apparent associated signs or symptoms. The symptoms do not radiate. Modifying factors: The symptoms are alleviated by nothing, the symptoms are aggravated by food. Historical: - PSHx: 15:24 Appendectomy; carpal tunnel right; hernia; left hand tendonitis; Nerve transplantion; cb5 shunt; - Immunization history:: Adult Immunizations up to date. - Social history:: Smoking status: unknown. - Family history:: not pertinent. ROS: 16:56 Constitutional: Negative for fever, chills, and weight loss, Eyes: Negative for injury, sin pain, redness, and discharge, ENT: Negative for injury, pain, and discharge, Neck: Negative for injury, pain, and swelling, Cardiovascular: Negative for chest pain, palpitations, and edema, Respiratory: Negative for shortness of breath, cough, wheezing, and pleuritic chest pain, Back: Negative for injury and pain, : Negative for injury, bleeding, discharge, and swelling, MS/Extremity: Negative for injury and deformity, Skin: Negative for injury, rash, and discoloration, Neuro: Negative for headache, weakness, numbness, tingling, and seizure, Psych: Negative for depression, anxiety, suicide ideation, homicidal ideation, and hallucinations, Allergy/Immunology: Negative for hives, rash, and allergies, Endocrine: Negative for neck swelling, polydipsia, polyuria, polyphagia, and marked weight changes, Hematologic/Lymphatic: Negative for swollen nodes, abnormal bleeding, and unusual bruising. 16:56 Abdomen/GI: Positive for nausea, vomiting. Exam: 16:56 Constitutional: This is a well developed, well nourished patient who is awake, alert, sin and in no acute distress. Head/Face: Normocephalic, atraumatic. Eyes: Pupils equal round and reactive to light, extra-ocular motions intact. Lids and lashes normal. Conjunctiva and sclera are non-icteric and not injected. Cornea within normal limits. Periorbital areas with no swelling, redness, or edema. ENT: Nares patent. No nasal discharge, no septal abnormalities noted. Tympanic membranes are normal and external auditory canals are clear. Oropharynx with no redness, swelling, or masses, exudates, or evidence of obstruction, uvula midline. Mucous membranes moist. Neck: Trachea midline, no thyromegaly or masses palpated, and no cervical lymphadenopathy. Supple, full range of motion without nuchal rigidity, or vertebral point tenderness. No Meningismus. Chest/axilla: Normal chest wall appearance and motion. Nontender with no deformity. No lesions are appreciated. Cardiovascular: Regular rate and rhythm with a normal S1 and S2. No gallops, murmurs, or rubs. Normal PMI, no JVD. No pulse deficits. Respiratory: Lungs have equal breath sounds bilaterally, clear to auscultation and percussion. No rales, rhonchi or wheezes noted. No increased work of breathing, no retractions or nasal flaring. Abdomen/GI: Soft, non-tender, with normal bowel sounds. No distension or tympany. No guarding or rebound. No evidence of tenderness throughout. Back: No spinal tenderness. No costovertebral tenderness. Full range of motion. Male : Normal genitalia with no discharge or lesions. Skin: Warm, dry with normal turgor. Normal color with no rashes, no lesions, and no evidence of cellulitis. MS/ Extremity: Pulses equal, no cyanosis. Neurovascular intact. Full, normal range of motion. Neuro: Awake and alert, GCS 15, oriented to person, place, time, and situation. Cranial nerves II-XII grossly intact. Motor strength 5/5 in all extremities. Sensory grossly intact. Cerebellar exam normal. Normal gait. Psych: Awake, alert, with orientation to person, place and time. Behavior, mood, and affect are within normal limits. Vital Signs: 15:18 BP 131 / 77; Pulse 80; Resp 16; Temp 98.6; Pulse Ox 99% ; Pain 4/10; cb5 MDM: 14:31 Patient medically screened. sin 14:31 Patient medically screened. [facility] 10/12 14:45 Order name: Basic Metabolic Panel [facility] 10/12 14:45 Order name: CBC with Diff [facility] 10/12 14:45 Order name: LFT's [facility] 10/12 14:45 Order name: Magnesium [facility] 10/12 14:45 Order name: PT-INR [facility] 10/12 14:45 Order name: Troponin HS; Complete Time: 16:51 [facility] 10/12 14:45 Order name: Lipase; Complete Time: 16:51 [facility] 10/12 14:45 Order name: SARS-COV-2 RT PCR (Document "Date of Onset" if Symptomatic) [facility] 10/12 14:45 Order name: Lactate; Complete Time: 16:51 [facility] 10/12 14:45 Order name: Type And Screen; Complete Time: 16:51 [facility] 10/12 14:45 Order name: Basic Metabolic Panel; Complete Time: 16:51 EDMS 10/12 14:45 Order name: CBC with Automated Diff [facility] 10/12 14:45 Order name: Liver (Hepatic) Function; Complete Time: 16:51 EDMS 10/12 14:45 Order name: EKG; Complete Time: 14:45 [facility] 10/12 14:45 Order name: Cardiac monitoring; Complete Time: 15:28 [facility] 10/12 14:45 Order name: EKG - Nurse/Tech; Complete Time: 15:28 [facility] 10/12 14:45 Order name: IV Saline Lock; Complete Time: 15:28 [facility] 10/12 14:45 Order name: CT Head C Spine; Complete Time: 16:51 [facility] 10/12 14:45 Order name: Shuntogram XRAY; Complete Time: 16:51 [facility] 10/12 14:45 Order name: Magnesium; Complete Time: 16:51 EDMS 10/12 14:45 Order name: NT PRO-BNP; Complete Time: 16:51 EDMS 10/12 14:45 Order name: Protime (+INR); Complete Time: 16:51 EDMS 10/12 14:45 Order name: Labs collected and sent; Complete Time: 15:28 [facility] 10/12 14:45 Order name: O2 Per Protocol; Complete Time: 15:28 [facility] 10/12 14:45 Order name: O2 Sat Monitoring; Complete Time: 15:28 sin Administered Medications: 15:47 Drug: morphine 4 mg Route: IVP; Site: left antecubital; cb5 15:47 Drug: Zofran (Ondansetron) 8 mg Route: IVP; Site: left antecubital; cb5 15:47 Drug: NS 0.9% 1000 ml Route: IV; Rate: 1 bolus; Site: left antecubital; cb5 15:48 Drug: ProTONIX (pantoprazole) 40 mg Route: IVP; Site: left antecubital; cb5 16:55 CANCELLED (Duplicate Order): Rocephin (cefTRIAXone) 2 grams IV at per protocol once; sin Given slow IV push per pharmarcy instructions 16:55 CANCELLED (Duplicate Order): vancoMYCIN 1 grams IVPB once over 2 hrs sin Disposition Summary: 10/12/21 16:59 Discharge Ordered Location: Home sin Problem: new sin Symptoms: have improved sin Condition: Stable sin Diagnosis - Vomiting sin - Nausea with vomiting, unspecified sin - Elevated white blood cell count sin Followup: sin - With: Private Physician - When: 1 - 2 days - Reason: Recheck today's complaints, Continuance of care, Re-evaluation by your physician Discharge Instructions: - Discharge Summary Sheet sin - Nausea and Vomiting, Adult sin - Nausea, Adult sin - Nausea and Vomiting, Adult, [id number] sin - Vomiting, Adult sin Forms: - Medication Reconciliation Form sin - Thank You Letter sin - Antibiotic Education sin - Prescription Opioid Use sin Prescriptions: - ondansetron 8 mg Oral tablet,disintegrating - take 1 tablet by ORAL route every 8 hours; 20 tablet; Refills: 0, Product sin Selection Permitted Signatures: Dispatcher [employer] Talon Vargas MD MD cha Boman, Colleen, RN RN cb5 Corrections: (The following items were deleted from the chart) 15:10 14:45 Chest Single View+RAD.RAD.BRZ ordered. EDMS EDMS 15:25 15:24 PMHx: GERD; cb5 cb5 15:25 15:24 PMHx: Hypertension; cb5 cb5 15:25 15:24 PMHx: CSF leak; cb5 cb5 15: 14:45 PROBNP+C.LAB.BRZ ordered. EDMS EDMS 16 16:52 Rocephin (cefTRIAXone) 2 grams IV at per protocol once; Given slow IV push per [facility] pharmarcy instructions ordered. [facility] 16:52 vancoMYCIN 1 grams IVPB once over 2 hrs ordered. [facility]
[2021-10-12 18:49] VITALS: BP 131/77; TEMP 98.6; O2SAT 99
[2021-10-12 20:55] LABS: Blood Morphology Comment NOT SEEN (NOT SEEN); Platelet Estimate ADEQ
--- NOTE | 2021-10-13 11:32 | EKG ---
Test Date: 2021-10-12 Test Time: 14:43:08 [employer] Business Development Manager: MEASUREMENT RESULTS: Intervals: Rate: 101 NH: 200 QRSD: 76 QT: 338 QTc: 438 [place]: P: 64 NH: 200 QRS: -4 T: 64 INTERPRETIVE STATEMENTS: Sinus tachycardia with frequent premature ventricular complexes Possible Left atrial enlargement Left ventricular hypertrophy Cannot rule out Septal infarct, age undetermined Abnormal ECG Compared to ECG 10/08/2021 12:39:53 Ventricular premature complex(es) now present Left ventricular hypertrophy now present Sinus rhythm no longer present First degree AV block no longer present Myocardial infarct finding still present Electronically Signed On 10-13-21 11:29:10 REPAIRER AND CHECKER by Agus Fisher
== END 2021-10-12 17:11 | disposition home or self-care (01) ==
LOC: ER 14:09
DX: R11.10 Vomiting, unspecified (principal); D72.829 Elevated white blood cell count, unspecified; Z20.822 Contact with and (suspected) exposure to COVID-19
CPT/HCPCS: 93005; 85025; 80048; 36415; 86900; 83735; 86850; 85610; 86901; 80076; 83605; 84484; 83690; 83880; 70450; 72125; 75809; 49427; 96375; 96374; 99284; U0003; C9113; J7030; J2405

== ENCOUNTER 2022-01-06 23:45 | Emergency (ER) | payer OTHER ==
--- OUTSIDE RECORDS SUMMARY | 2022-01-06 23:49 | XMS REPORT | Continuity of Care Document ---
:1980 Author Organization [facility] t Address [address] [place] [address] Care Team Providers Name Role Phone Asked, Pcp Primary Care Physician Unavailable Tricia MICHELLE Attending Clinician Unavailable George Attending Clinician Unavailable Alec Medeiros MD Attending Clinician DAYToney Attending Clinician Unavailable Doctor Unassigned, Name Attending Clinician Unavailable 1, Audio Sound Suite Attending Clinician Unavailable RENZO Attending Clinician Unavailable Evaristo JIMENEZ Attending Clinician Unavailable MARIAN PADRON Attending Clinician Unavailable MONAE Attending Clinician Unavailable BENJA Attending Clinician Unavailable MARCIAL Attending Clinician Unavailable TAMMY Attending Clinician Unavailable KESHIA Attending Clinician Unavailable GONZALEZ Attending Clinician Unavailable BRADLEY Attending Clinician Unavailable DAY L Admitting Clinician Unavailable MARIAN PADRON Admitting Clinician Unavailable Payers Payer Name Policy Type Policy Effective Expiration Source Number Date Date [facility] [id number] 2019 [facility] - MANAGED 00:00:00 [place] Me dical MEDICAIDCOMMUNITY Branch HEALTH CHOICE [id number]/13 020-[address], [place] [address]Medicaid Problems Condition Condition Condition Status Onset Resolution Last Treating Co mments Source Name Details Category Date Date Treatment Clinician Date Cerebrospi Cerebrospi Disease Active U T nal fluid nal fluid 3-14 Heal th leak leak 00:00: 00 CSF CSF Disease Active UT otorrhea otorrhea 9-28 Health 00:00: 00 Syncope Syncope Disease Active 2017-08 [facility]i [facility]osp[facility] 00 l No known No known Disease Unive rs active active ity of problems problems [facility] Cubital Cubital Problem Active UT tunnel tunnel Physici syndrome syndrome ans on right on right History of History of Problem Resolve UT essential essential d Phys ici hypertensi hypertensi an s on on Carpal Carpal Problem Active UT tunnel tunnel Physici syndrome syndrome ans of right of right wrist wrist Benign Benign Problem Active UT essential essential Phys ici HTN HTN ans Obstructiv Obstructiv Problem Active U T e sleep e sleep Physici apnea, apnea, ans adult adult Migraine Migraine Problem Active UT headache headache Physic i ans Chronic Chronic Problem Active UT GERD GERD Physici ans History of History of Problem Resolve UT arthritis arthritis d Phys ici ans History of History of Problem Resolve UT asthma asthma d Physici ans History of History of Problem Resolve UT back pain back pain d Phys ici ans History of History of Problem Resolve UT Infection Infection d Phys ici of skin of skin ans and and subcutaneo subcutaneo us tissue us tissue due to due to fungus fungus Acute pain Acute pain Problem Active U T of right of right Physic i knee knee ans History of History of Problem Resolve UT viral viral d Physici gastroente gastroente an s ritis ritis Acute Acute Problem Active UT pharyngiti pharyngiti Ph ysici s s ans Cyclical Cyclical Problem Active UT vomiting vomiting Physic i ans Allergies, Adverse Reactions, Alerts Allergy Allergy Status Severity Reaction(s) Onset Inactive Treating Comm ents Source Name Type Date Date Clinician NO KNOWN Drug Active Univers ALLERGIE Class ity of S [facility] Acetamin drug Active Headache UT ophen allergy Physici TABS ans Family History Family Member Diagnosis Comments Start Date Stop Date Source natural son Family history of [facility] Ph[facility] sicians asthma Mother Family history of [facility] Phys icians multiple sclerosis Father Family history of Knee [facility] pain Unknown Family Family history of Family History [facility] Member diabetes mellitus Unknown Family Family history of Family History [facility] Member Heart trouble Unknown Family Family history of Family History [facility] Member hypertension Unknown Family Family history of Family History [facility] Member arthritis Unknown Family Family history of Family History [facility] Member malignant neoplasm Unknown Family Family history of Family History [facility] Member cerebrovascular accident (CVA) Social History Social Habit Start Date Stop Date Quantity Comments Source Exposure to Not sure University of SARS-CoV-2 [place] [facility] (event) Branch History [facility] Alcohol Frequency History [facility] Alcohol Std Drinks History [facility] Alcohol Binge Alcohol Comment 2021-10-18 2021-10-18 Ocassionally [facility] 00:00:00 00:00:00 Alcohol intake 2021-10-18 2021-10-18 Current drinker of [facility] 00:00:00 00:00:00 alcohol (finding) Tobacco use and 2021-04-18 2021-04-18 Smokeless tobacco [facility] exposure 00:00:00 00:00:00 non-user History of 2018-04-25 Cigarette Smoker Methodis t tobacco use 00:00:00 Hospital Sex Assigned At [birth year] M [facility] 00:00:00 00:00:00 Smoking Status Start Date Stop Date Source Unknown if ever smoked [facility] [place] Ex-smoker 2021-04-18 00:00:00 2021-04-18 00:00:[facility] Medications Ordered Filled Start Stop Current Ordering Indication Dosage Frequency Signature Comments Components Source Medication Medication Date Date Medication? Clinician (SIG) Name Name No known No No known [place] medications 3-11 medication He alth 13:38: s 44 levoFLOXaci Yes TAKE 1 Univ ers n [...] Promethazin Promethazin 2020- No Norah 1 tablet Common e HCl e HCl 4-28 05-03 [place] as needed Spirit 00:00: 00:00 for n/v - [facility] 00 :00 [facility] ondansetron 2019-0 Yes [id number] 4mg Take 1 Univers (ZOFRAN 3-11 tablet by ity of ODT) 4 mg 00:00: mouth [place] disintegrat 00 every 8 Medic al ing tablet (eight) Branch hours as needed for Nausea and Vomiting (N/V). benzonatate 2019-0 Yes [id number] 200mg Take 1 Univers 200 mg 3-11 capsule by ity of capsule 00:00: mouth 3 [place] 00 (three) Medical times Branch daily as needed for Cough for up to 20 doses. ibuprofen 2019-0 Yes [id number] 600mg Take 1 U nivers 600 mg 3-11 tablet by ity of tablet 00:00: mouth [place] 00 every 6 Medical (six) Branch hours as needed for Pain (scale 4-6). SUMAtriptan SUMAtriptan Yes POURAN inject PRN UT Succinate 6 Succinate 6 2-21 BENJA onset of Physici MG/0.5ML MG/0.5ML 00:00: M.D. the ans Subcutaneou Subcutaneou 00 cluster s Solution s Solution headaches, Auto-inject Auto-inject may repeat or or in 2 h, if headache persists. Ondansetron Ondansetron 2017-08 Yes JERNAE 1 Take 1 UT HCl - 4 MG HCl - 4 MG 2-11 BIJOU N.P. tablet Physici Oral Tablet Oral Tablet 00:00: every 6 ans 00 hours prn for nausea Omeprazole Omeprazole 2017-08 Yes JERNAE 1 QD TAKE 1 UT 40 MG Oral 40 MG Oral 2-04 BIJOU N.P. CAPSULE Physici Capsule Capsule 00:00: DAILY ans Delayed Delayed 00 Release Release amLODIPine amLODIPine 2017-08 Yes POURAN 1 QD TAKE 1 UT Besylate 10 Besylate 10 0-23 BENJA TABLET Physici MG Oral MG Oral 00:00: M.D. DAILY. ans Tablet Tablet 00 Zofran Zofran Yes Norah 1 tablet Commo n [place] as needed [facility] Losartan Losartan Yes Norah 1 tablet C ommon Potassium-H Potassium-H [place] [facility] CTZ CTZ [facility] Hydrocodone Hydrocodone Yes Norah 1 tablet Common -Acetaminop -Acetaminop [place] [facility] needed [facility] hen hen [facility] Adderall XR Adderall XR Yes Norah 1 capsule Common [place] in the [facility] Omeprazole Omeprazole Yes Norah 1 capsule Common [place] 30 minutes [facility] before [facility] Dicyclomine Dicyclomine Yes Norah 1 tablet Common HCl HCl [place] [facility] No known No Methodi medications [facility]osp[facility] Immunizations Ordered Immunization Filled Immunization Date Status Commen ts Source Name Name COVID-19 [place] 2021-05-06 Completed [facility] Vaccination 00:00:00 (PURPLE-DILUTE) COVID-19 Pfizer & 2021-04-15 Completed [facility] Vaccination 00:00:00 (PURPLE-DILUTE) Fluzone Quadrivalent 2018-06-03 Completed [facility] 0.5 ML Intramuscular 14:35:00 Suspension Vital Signs Vital Name Observation Time Observation Value Comments Source BP Systolic 2018-10-02 15:26:00 155 mm[Hg] Location: LUE; [facility] Position: Sitting BP Diastolic 2018-10-02 15:26:00 88 mm[Hg] Location: LUE; [facility] Position: Sitting Height 2018-10-02 15:26:00 75 [in_us] [facility] Weight 2018-10-02 15:26:00 302 [lb_av] [facility] Body Mass Index 2018-10-02 15:26:00 37.75 kg/m2 [facility] Calculated Temperature 2018-10-02 15:26:00 98 [degF] Method: Oral [facility] Heart Rate 2018-10-02 15:26:00 63 /min Location: [facility] Apical; BP Systolic 2018-09-25 10:26:00 154 mm[Hg] Location: LUE; [facility] Position: Sitting BP Diastolic 2018-09-25 10:26:00 98 mm[Hg] Location: LUE; [facility] Position: Sitting Heart Rate 2018-09-25 10:26:00 70 /min Quality: Normal [facility] BP Systolic 2018-09-25 10:25:00 169 mm[Hg] Location: LUE; [facility] Position: Sitting BP Diastolic 2018-09-25 10:25:00 65 mm[Hg] Location: LUE; [facility] Position: Sitting Heart Rate 2018-09-25 10:25:00 67 /min Quality: Normal [facility] Height 2018-09-25 10:25:00 75 [in_us] [facility] Weight 2018-09-25 10:25:00 295 [lb_av] [facility] Body Mass Index 2018-09-25 10:25:00 36.87 kg/m2 [facility] Calculated Temperature 2018-09-25 10:25:00 98.3 [degF] Method: Oral [facility] O2 SAT 2018-09-25 10:25:00 99 % [facility] BP Systolic 2018-06-03 14:09:00 136 mm[Hg] Location: LUE; [facility] Position: Sitting BP Diastolic 2018-06-03 14:09:00 75 mm[Hg] Location: LUE; [facility] Position: Sitting Height 2018-06-03 14:09:00 75 [in_us] [facility] Weight 2018-06-03 14:09:00 317 [lb_av] [facility] Body Mass Index 2018-06-03 14:09:00 39.62 kg/m2 [facility] Calculated Temperature 2018-06-03 14:09:00 97.9 [degF] Method: Oral [facility] Heart Rate 2018-06-03 14:09:00 74 /min [facility] Procedures Procedure Date / Time Performing Clinician Source Performed REFERRAL- REQUEST/RESPONSE 2021-03-30 05:01:00 Doctor Unassigned , [facility] [place] [facility] [U] XRAY KNEE 4 OR MORE 2018-07-24 00:00:00 [facility] P [facility]ys[facility] VWS RIGHT [id number] Emg/Ncv 2018-06-20 00:00:00 [place] Physician s [facility] Sleep Lab - Sleep 2018-06-03 00:00:00 [facility] Study Split Night History of Cubital tunnel [facility] repair History of Appendectomy [facility] History of Wrist surgery [facility] History of [facility] Hemorrhoidectomy Plan of Care Planned Activity Planned Date Details Comments Source Diagnostic Test 2018-06-20 Emg/Ncv [code = UT Physic ians Pending 00:00:00 Emg/Ncv] Diagnostic Test 2018-06-20 Emg/Ncv [code = [facility] Physic ians Pending 00:00:00 Emg/Ncv] Future Scheduled Test COVID-19 VACCINE [facility] (1) [code = COVID-19 VACCINE (1)] Future Scheduled Test Hepatitis C Method [facility] screening (procedure) [code = 843283474] Future Scheduled Test INFLUENZA VACCINE [facility] [code = INFLUENZA VACCINE] Encounters Start End Encounter Admission Attending Care Care Encounter Source Date/Time Date/Time Type Type Clinicians Facility Department ID 2021-10-25 Outpatient MIGUEL ANGEL [facility] ANAY [address] [facility] 11:23:00 GERONIMO 2021-09-06 Outpatient ZOLTAN Vazquez [facility] [id number] Common 12:12:10 John [id number] [facility] 2021-09-[address] [facility] [id number] Common 12:10:54 John [id number] [facility] 2021-09-06 Outpatient Vazquez, STLMLC ST[facility] [id number] Common 12:09:52 John [id number] [facility] 2021-09-06 Outpatient Vazquez, STLMLC [facility] [id number] Common 11:54:05 John 80711 [facility] 2021-09-06 [facility] [id number] Common 11:06:57 John [id number] [facility] 2021-09-06 [facility] [id number] Common 11:06:47 John [id number] [facility] 2022-01-01 2022-01-01 Telephone Day, Mj DAWSON 6400 [id number] [place] 00:00:00 00:00:00 [facility] [id number] [facility] [id number] 2021-10-08 2021-10-10 [facility] E [facility] 19:58:00 09:48:00 2021-10-03 2021-10-05 Inpatient DAY, MJ [facility] 7[address] [facility] 05:15:00 10:21:00 2021-05-11 2021-05-11 Outpatient STLMLC STLC [id number] Common 00:00:00 00:00:00 [facility] 2021-04-06 2021-04-06 Outpatient STLMLC STLC [id number] Common 00:00:00 00:00:00 [facility] 2021-04-06 2021-04-06 Outpatient STLMLC STLMLC [id number] Common 00:00:00 00:00:00 [facility] 2021-03-31 2021-03-31 Outpatient STLMLC STLMLC [id number] Common 00:00:00 00:00:00 [facility] 2021-03-30 2021-03-30 Yolanda HOLCOMB [id number] Univers 00:00:00 00:00:00 Only Unassigned, ABDULKADIR [id number] ity of [place] [facility] [id number] Norberto as [id number] [address] 2021-03-30 2021-03-30 Orders Doctor AICHA [id number] 00:00:00 00:00:00 Only Unassigned, ABDULKADIR [id number] [place] [facility] [id number] [facility] 2021-03-21 2021-03-21 Ancillary 1, Gal UNIVERSIT [id number] 14:21:34 15:15:15 Visit Audio Sound Y [id number] [facility] [id number] BANK [id number] BLDG. 141 2021-03-21 2021-03-21 Outpatient R [facility] [id number] Univers 14:30:00 14:30:00 [id number] [facility] 2021-03-21 2021-03-21 [id number] Univers 13:45:00 13:45:00 FABY [facility] 2021-01-17 2021-01-17 Emergency X BARBARA, [facility] ERT [id number] Univers 19:28:00 19:28:00 LAURENCE [facility] 2020-11-21 2020-11-21 Emergency X [facility] ERT [id number] Univers 15:51:00 15:51:00 [facility] 2020-07-20 2020-07-20 Outpatient STLMLC STLMLC [id number] Common 00:00:00 00:00:00 [facility] 2020-07-12 2020-07-12 Outpatient STLMLC STLMLC [id number] Common 00:00:00 00:00:00 [facility] 2020-05-23 2020-05-23 Outpatient STLMLC STLMLC [id number] Common 00:00:00 00:00:00 [facility] 2020-02-24 2020-02-24 [facility] [id number] Common 14:42:00 14:42:[address] [facility] 2020-02-22 2020-02-22 Outpatient [facility] [id number] Common 13:51:00 13:51:[address] [facility] 2019-12-10 2019-12-10 Outpatient [facility] [id number] Common 15:39:00 15:39:[address] [facility] 2019-12-08 2019-12-08 Outpatient [facility] [id number] Common 13:40:00 13:40:[address] [facility] 2019-12-07 2019-12-07 Outpatient [facility] [id number] Common 12:05:00 12:05:[address] [facility] 2019-11-16 2019-11-16 Outpatient [facility] [id number] Common 11:00:00 11:00:00 t [facility] Sp[facility] t [facility] 2019-10-21 2019-10-21 Emergency X NEREIDA, K [facility] ERT [id number] Univers 11:24:16 14:51:00 ity of [facility] 2019-09-29 2019-09-29 Out[facility] [id number] Common 09:21:00 09:21:00 t Bone Bone and Spiri t and Joint [facility] - [facility] 2019-09-21 2019-09-21 Outpatient [facility] [id number] Common 14:00:00 14:00:00 t Bone Bone and Spiri t and Joint [facility] 2019-03-13 2019-03-13 EUNICE Diaz [id number] [facility] 09:00:00 09:00:00 t; Lesa [facility]OD[facility]IGUEZ [facility] M.[facility] 2018-10-02 2018-10-02 [facility] [id number] [place] 15:00:00 15:00:00 t; Asher JONES i, M.D. ans POURAN, M.D. 2018-09-25 2018-09-25 [facility] [id number] [place] 10:30:00 10:30:00 t; BRANT CEJA, SHANE Health and Valery GUO, SHANE Well[facility] 2018-09-22 2018-09-22 [facility] [id number] [place] 15:30:00 15:30:00 t; Asher JONES i, M.D. ans POURAN, M.D. 2018-08-22 2018-08-22 [facility] [id number] [place] 09:30:00 09:30:00 t; Lesa BRYANT savannah Rios M.D. 2018-07-29 2018-07-29 [facility] [id number] [place] 14:30:00 14:30:00 t; Lesa BRYANT savannah Rios M.D. 2018-07-25 2018-07-25 [facility] [id number] [place] 10:30:00 10:30:00 t; Lesa BRITT [facility] savannah Monk M.D. 2018-07-22 2018-07-22 [facility] [id number] [place] 11:15:00 11:15:00 t; Lesa BRYANT [facility] Physici TAMMY, Orthopedics savannah BRYANT M.D. 2018-07-15 2018-07-15 [facility] [id number] [place] 10:30:00 10:30:00 t; Lesa BRYANT [facility] Physici TAMMY, Orthopedics savannah BRYANT M.D. 2018-07-09 2018-07-09 [facility] [id number] [place] 13:00:00 13:00:00 t; Lesa BRYANT savannah Rios M.D. 2018-06-30 2018-06-30 [facility] [id number] [place] 10:15:00 10:15:00 t; Lesa BRYANT [facility] Valery MUNOZ, Orthopedics [place] BRYANT M.D. 2018-06-20 2018-06-20 [facility] [id number] [place] 13:40:00 13:40:00 t; SHANE MONROE [facility] P hysigeovanni ROTH, Orthopedics a boyd MONROE NP 2018-06-19 2018-06-19 [facility] [id number] [place] 08:15:00 08:15:00 t; SERJIO HUERTA D.O. Physici KERRY, ans D.O. 2018-06-17 2018-06-17 [facility] [id number] [place] 15:45:00 15:45:00 t; Lesa BRYANT [facility] Valery MUNOZ, Orthopedics sav[place] BRYANT M.D. 2018-06-03 2018-06-03 [facility] [id number] [place] 13:45:00 13:45:00 t; SERJIO HUERTA D.O. [facility] savannah Vora D.O. Results Test Description Test Time Test Comments Results Result Sour e Comments [U] XRAY ELBOW 2 2018-06-17 Images [facility] VWS RIGHT [id number] 15:57:00 acquired, not reported on this accession number. [U] XRAY WRIST MIN 2018-06-17 Images [facility] 3 VWS RIGHT [id number] 15:57:00 acquired, not reported on this accession number.
[2022-01-07] MEDS ORDERED: ONDANSETRON 4 MG/2 ML VIAL ONE (00:25)
[2022-01-07] MEDS ORDERED: MORPHINE 4 MG/ML SYR ONE (00:25)
[2022-01-07 00:44] LABS: Absolute Lymphocytes (CBC) 3.3 K/uL (0.7-4.9); Hematocrit 43.9 % (39.6-49.0); Lymphocytes % 41.1 % (15.3-44.8); MPV 9.1 fL (7.6-11.3); RBC Red Blood Cell Count 5.23 M/uL (4.33-5.43)
[2022-01-07 00:51] LABS: Protime INR 0.98
[2022-01-07 01:03] LABS: Potassium 3.9 mmol/L (3.5-5.1)
[2022-01-07] MEDS ORDERED: LIDOCAINE VISCOUS 2% SOLN 15 ML UDC ONE (02:20)
[2022-01-07] MEDS ORDERED: MEPERIDINE HCL 50 MG/ML ONE (02:20)
[2022-01-07] MEDS ORDERED: HYDROCODONE/APAP 10/325 TAB ONE ×2 (04:41→07:18)
--- NOTE | 2022-01-07 05:47 | EDPHYS ---
Physician Documentation [facility] Name: Terry Akins Sr Age: 41 yrs Sex: Male : 1980 Arrival Date: 01/06/2022 Time: 23:51 Bed 14 Private MD: ED Physician Kwame Ortiz HPI: 01/07 03:00 This 41 yrs old Black Male presents to ER via Ambulatory with complaints of DIRECTOR RECREATION Shunt rn Pain. 03:01 Pt reports had DIRECTOR RECREATION shunt this year, had problem with intrabdominal portion with re-do of rn that portion. Comes back in today for 2 weeks of nasal drainage, feels like coming from shunt, and having pain along entire course of shunt. No fever. NO trauma. . Onset: The symptoms/episode began/occurred 2 week(s) ago. Severity of symptoms: At their worst the symptoms were moderate in the emergency department the symptoms are unchanged. The patient has experienced a previous episode. The patient has not recently seen a physician. Historical: - Allergies: 01/06 23:55 No Known Allergies; ld1 - PMHx: 23:55 Hypertensive disorder; ld1 - PSHx: 23:55 Appendectomy; carpal tunnel right; hernia; left hand tendonitis; Nerve transplantion; ld1 shunt; - Immunization history:: Adult Immunizations up to date, Client reports receiving the 2nd dose of the Covid vaccine. - Social history:: Smoking status: Reported history of juuling and/or vaping. Patient uses street drugs, marijuana, Patient/guardian denies using alcohol. - Family history:: not pertinent. - Hospitalizations: : No recent hospitalization is reported. ROS: 01/07 03:01 Constitutional: Negative for fever, chills, and weight loss, Eyes: Negative for injury, rn pain, redness, and discharge, ENT: + nasal drainage and sore throat Neck: Negative for injury, pain, and swelling, Cardiovascular: Negative for chest pain, palpitations, and edema, Respiratory: Negative for shortness of breath, cough, wheezing, and pleuritic chest pain, Abdomen/GI: Negative for nausea, vomiting, diarrhea, and constipation, Back: Negative for injury and pain, MS/Extremity: Negative for injury and deformity, Skin: Negative for injury, rash, and discoloration, Neuro: Negative for weakness, numbness, tingling, and seizure. Exam: 03:01 Constitutional: This is a well developed, well nourished patient who is awake, alert, rn and in no acute distress. Head/Face: Normocephalic, atraumatic. Eyes: Pupils equal round and reactive to light, extra-ocular motions intact. Lids and lashes normal. Conjunctiva and sclera are non-icteric and not injected. Cornea within normal limits. Periorbital areas with no swelling, redness, or edema. Neck: Trachea midline, no masses palpated, and no cervical lymphadenopathy. Supple, full range of motion without nuchal rigidity, or vertebral point tenderness. No Meningismus. Cardiovascular: Regular rate and rhythm. No pulse deficits. Respiratory: No increased work of breathing, no retractions or nasal flaring. Abdomen/GI: Soft, non-tender, non-distended, no peritoneal signs Skin: Warm, dry MS/ Extremity: Pulses equal, no cyanosis Neuro: Awake and alert, GCS 15, oriented to person, place, time, and situation. Cranial nerves II-XII grossly intact. Motor strength 5/5 in all extremities. Sensory grossly intact. Cerebellar exam normal. Vital Signs: 01/06 23:52 BP 153 / 109; Pulse 90; Resp 18; Temp 97.9(TE); Pulse Ox 99% on R/A; Weight 104.33 kg; ld1 Height 6 ft. 3 in. (190.50 cm); Pain 10/10; 01/07 00:55 BP 123 / 74; Pulse 74; Resp 18; Pulse Ox 100% on R/A; ll3 01:40 BP 132 / 64; Pulse 72; Resp 18; Pulse Ox 98% on R/A; ll3 03:26 BP 139 / 79; Pulse 65; Resp 17; Pulse Ox 96% on R/A; ll3 04:38 BP 125 / 56; Pulse 70; Resp 17; Pulse Ox 98% on R/A; Pain 8/10; ll3 07:00 BP 118 / 47; Pulse 62; Resp 16; Pulse Ox 100% ; bp 07:57 BP 121 / 61; Pulse 67; Resp 17; Pulse Ox 100% ; bp 01/06 23:52 Body Mass Index 28.75 (104.33 kg, 190.50 cm) ld1 MDM: 01/06 23:52 Patient medically screened. rn 01/07 05:44 Differential Diagnosis shunt pain, shunt malfunction. Data reviewed: vital signs, rn nurses notes, radiologic studies, CT scan, and as a result, I will discharge patient. Counseling: I had a detailed discussion with the patient and/or guardian regarding: the historical points, exam findings, and any diagnostic results supporting the discharge/admit diagnosis, radiology results, the need for outpatient follow up, to return to the emergency department if symptoms worsen or persist or if there are any questions or concerns that arise at home. Response to treatment: the patient's symptoms have markedly improved after treatment, and as a result, I will discharge patient. ED course: Pt reports pain better. CT head does not show signs to indicate shunt malfunction. Xray machine down tonight, and radiology department has still not done shunt xray to evaluate, despite patient being here for 6 hours. Patient does not want to wait any longer, wants to go home. Stable vitals. Normal neuro exam. . 07:20 Transition of care: After a detail discussion of the patient's case, care is rn transferred to Stephane Rizvi MD. ED course: Care transferred to Dr. Rizvi pending Shuntogram films to confirm shunt positioning. Plan is to DC home if shuntogram is negative with f/u with his neurosurgeon. . 01/07 00:06 Order name: CBC with Diff; Complete Time: 01:52 rn 01/07 00:06 Order name: Basic Metabolic Panel; Complete Time: 01:52 rn 01/07 00:06 Order name: Protime (+inr); Complete Time: : rn 01/07 00:06 Order name: Ptt, Activated; Complete Time: : rn 01/07 00:06 Order name: Shuntogram XRAY rn 01/07 00:06 Order name: CT Head Brain wo Cont rn 01/07 00:06 Order name: IV Start; Complete Time: 00:42 rn Administered Medications: 00:45 Drug: Zofran (Ondansetron) 4 mg Route: IVP; Site: left antecubital; ll3 01:56 Follow up: Response: No adverse reaction ll3 00:50 Drug: morphine 4 mg Route: IVP; Infused Over: 4 mins; Site: left antecubital; ll3 01:56 Follow up: Response: No adverse reaction; No change in condition ll3 02:19 Drug: Demerol (meperidine) 50 mg Route: IVP; Site: left antecubital; kd3 04:37 Follow up: Response: No adverse reaction ll3 02:19 Drug: Viscous Lidocaine Liquid (4 %) 5 ml Route: Mucous Membrane; kd3 04:37 Follow up: Response: No adverse reaction; Marked relief of symptoms ll3 04:37 Drug: [place] (HYDROcodone-acetaminophen) 10 mg-325 mg 1 tabs Route: PO; ll3 07:19 Follow up: Response: Pain is decreased ll3 07:10 Drug: [place] (HYDROcodone-acetaminophen) 10 mg-325 mg 1 tabs Route: PO; ll3 07:19 Follow up: Response: Pain is decreased ll3 Disposition Summary: 01/07/22 05:47 Discharge Ordered Location: Home rn Problem: an ongoing problem rn Symptoms: have improved rn Condition: Stable rn Diagnosis - Headache rn Followup: rn - With: Private Physician - When: As needed - Reason: Recheck today's complaints, Re-evaluation by your physician Discharge Instructions: - Discharge Summary Sheet rn - Brain Shunt Home Guide rn - Brain Shunt Placement, Care After rn Forms: - Medication Reconciliation Form rn - Thank You Letter rn - Antibiotic prosecuting attorney - Prescription Opioid Use rn - Work release form ll3 Signatures: Dispatcher [employer] Kwame Giron MD MD rn Dibbern, Lauren RN RN ld1 Kaley Johnson RN RN ll3 Jacqui Arroyo, RN RN kd3
--- NOTE | 2022-01-07 05:47 | ER ---
Nurse's Notes [facility] Name: Terry Akins Sr Age: 41 yrs Sex: Male : 1980 Arrival Date: 01/06/2022 Time: 23:51 Bed 14 Private MD: Diagnosis: Headache Presentation: 01/06 23:52 Chief complaint: Patient states: Sore throat since yesterday - spitting up white sputum ld1 with blood due to yelling at graduation. 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 I have been feeling the fluid drop down my throat, it used to not do that. Coronavirus screen: At this time, the client does not indicate any symptoms associated with coronavirus-19. Ebola Screen: No symptoms or risks identified at this time. Initial Sepsis Screen: Does the patient meet any 2 criteria? No. Patient's initial sepsis screen is negative. Does the patient have a suspected source of infection? No. Patient's initial sepsis screen is negative. Risk Assessment: Do you want to hurt yourself or someone else? Patient reports no desire to harm self or others. Onset of symptoms was January 06, 2022. 23:52 Method Of Arrival: Ambulatory ld1 23:52 Acuity: SARITHA 3 ld1 Triage Assessment: 23:55 General: Appears in no apparent distress. comfortable, Behavior is calm, cooperative, ld1 appropriate for age. Pain: Complains of pain in face and scalp Pain does not radiate. Pain currently is 9 out of 10 on a pain scale. EENT: No signs and/or symptoms were reported regarding the EENT system. Neuro: Level of Consciousness is awake, alert, obeys commands, Oriented to person, place, time, situation. Cardiovascular: Capillary refill < 3 seconds Patient's skin is warm and dry. Respiratory: Airway is patent Respiratory effort is even, unlabored. Historical: - Allergies: 23:55 No Known Allergies; ld1 - PMHx: 23:55 Hypertensive disorder; ld1 - PSHx: 23:55 Appendectomy; carpal tunnel right; hernia; left hand tendonitis; Nerve transplantion; ld1 shunt; - Immunization history:: Adult Immunizations up to date, Client reports receiving the 2nd dose of the Covid vaccine. - Social history:: Smoking status: Reported history of juuling and/or vaping. Patient uses street drugs, marijuana, Patient/guardian denies using alcohol. - Family history:: not pertinent. - Hospitalizations: : No recent hospitalization is reported. Screenin/29 00:56 Abuse screen: Denies threats or abuse. Nutritional screening: No deficits noted. ll3 Tuberculosis screening: No symptoms or risk factors identified. Fall Risk No fall in past 12 months (0 pts). No secondary diagnosis (0 pts). IV access (20 points). Ambulatory Aid- None/Bed Rest/Nurse Assist (0 pts). Gait- Normal/Bed Rest/Wheelchair (0 pts) Mental Status- Oriented to own ability (0 pts). Total Moss Fall Scale indicates No Risk (0-24 pts). Assessment: 00:00 EENT: Throat is clear Reports Sore throat, and something dripping down throat. ll3 00:00 General: Appears uncomfortable, Behavior is calm, cooperative. Pain: Complains of pain ll3 in face Pain currently is 10 out of 10 on a pain scale. Neuro: No deficits noted. Level of Consciousness is awake, alert, obeys commands, Oriented to person, place, time, situation, Denies headache. Respiratory: No deficits noted. Respiratory effort is even, unlabored, Breath sounds are clear bilaterally. GI: Reports upper abdominal pain, States AMBULANCE OFFICER shunt in abdomen is out of place and is hurting, states its been going on for the past 3 days. Derm: Skin is pink, warm \T\ dry. Musculoskeletal: Circulation, motion, and sensation intact. 01:38 Reassessment: Pt states pain medicine did not help and wore off fast, c/o pain 05/21, ll3 ERP notified. 03:26 Reassessment: Patient and/or family updated on plan of care and expected duration. Pain ll3 level reassessed. Patient is alert, oriented x 3, equal unlabored respirations, skin warm/dry/pink. Patient states feeling better. 07:00 Reassessment: RECD REPORT FROM DAYANARA CLEMENTE. 41YO BM P/W SORE THROAT AND HEAD PAIN. RAD bp RESULTS PENDING. 07:57 Reassessment: PT D/C HOME AMBULATORY. bp Vital Signs: 01/06 23:52 BP 153 / 109; Pulse 90; Resp 18; Temp 97.9(TE); Pulse Ox 99% on R/A; Weight 104.33 kg; ld1 Height 6 ft. 3 in. (190.50 cm); Pain 10/10; 01/07 00:55 BP 123 / 74; Pulse 74; Resp 18; Pulse Ox 100% on R/A; ll3 01:40 BP 132 / 64; Pulse 72; Resp 18; Pulse Ox 98% on R/A; ll3 03:26 BP 139 / 79; Pulse 65; Resp 17; Pulse Ox 96% on R/A; ll3 04:38 BP 125 / 56; Pulse 70; Resp 17; Pulse Ox 98% on R/A; Pain 8/10; ll3 07:00 BP 118 / 47; Pulse 62; Resp 16; Pulse Ox 100% ; bp 07:57 BP 121 / 61; Pulse 67; Resp 17; Pulse Ox 100% ; bp 01/06 23:52 Body Mass Index 28.75 (104.33 kg, 190.50 cm) ld1 ED Course: 01/06 23:51 Patient arrived in ED. bp1 23:52 Kwame Ortiz MD is Attending Physician. rn 23:52 Chelsey Em RN is Primary Nurse. ld1 23:55 Triage completed. ld1 23:55 Arm band placed on right wrist. ld1 01/07 00:31 Missed attempt(s): 20 gauge in right antecubital area. mw2 00:32 Inserted saline lock: 20 gauge in left antecubital area, using aseptic technique. Blood mw2 collected. 00:49 CT Head Brain wo Cont In Process Unspecified. EDMS 00:56 Patient has correct armband on for positive identification. Bed in low position. Call ll3 light in reach. Side rails up X 1. 00:56 No provider procedures requiring assistance completed. ll3 06:31 Shuntogram XRAY In Process Unspecified. EDMS 07:57 IV discontinued, intact, bleeding controlled, No redness/swelling at site. Pressure bp dressing applied. Administered Medications: 00:45 Drug: Zofran (Ondansetron) 4 mg Route: IVP; Site: left antecubital; ll3 01:56 Follow up: Response: No adverse reaction ll3 00:50 Drug: morphine 4 mg Route: IVP; Infused Over: 4 mins; Site: left antecubital; ll3 01:56 Follow up: Response: No adverse reaction; No change in condition ll3 02:19 Drug: Demerol (meperidine) 50 mg Route: IVP; Site: left antecubital; kd3 04:37 Follow up: Response: No adverse reaction ll3 02:19 Drug: Viscous Lidocaine Liquid (4 %) 5 ml Route: Mucous Membrane; kd3 04:37 Follow up: Response: No adverse reaction; Marked relief of symptoms ll3 04:37 Drug: [place] (HYDROcodone-acetaminophen) 10 mg-325 mg 1 tabs Route: PO; ll3 07:19 Follow up: Response: Pain is decreased ll3 07:10 Drug: [place] (HYDROcodone-acetaminophen) 10 mg-325 mg 1 tabs Route: PO; ll3 07:19 Follow up: Response: Pain is decreased ll3 Medication: 00:00 VIS not applicable for this client. ll3 Outcome: 05:47 Discharge ordered by . rn 07:57 Discharged to home ambulatory. bp 07:57 Condition: stable 07:57 Discharge instructions given to patient, Instructed on discharge instructions, follow up and referral plans. Demonstrated understanding of instructions, follow-up care. 08:00 Patient left the ED. bp Signatures: Dispatcher [employer] EDMS Kwame Ortiz MD MD rn Peltier, Brian, RN RN Ly Wooten 2 Yara Reddy Lauren RN RN ld1 Dayanara Johnson RN RN ll3 Jacqui Arroyo RN RN kd3
[2022-01-07 08:15] VITALS: TEMP 97.9
[2022-01-07 08:26] VITALS: O2SAT 100
[2022-01-07 08:27] VITALS: BP 121/61
--- NOTE | 2022-01-08 16:45 | RAD REPORT ---
EXAM DESCRIPTION: Shuntogram CLINICAL HISTORY: Pain from shunt, placed this year with re-do COMPARISON: October 12, 2021 FINDINGS: A right transparietal ventriculostomy catheter is noted. The catheter traverses the right neck, right chest and abdomen. No catheter kink or break. The catheter terminates within the upper ab domen. IMPRESSION: No CRACKER DOUGH MIXER shunt catheter kink or break. RECOMMENDATIONS: Electronically signed by: Richy Cowan MD 01/07/2022 7:24 AM CDT Due to temporary technical issues with the PACS/Fluency reporting system, reports are being signed by the in house radiologists without review as a courtesy to insure prompt reporting. The interpreting radiologist is fully responsible for the content of the report.
--- NOTE | 2022-01-08 16:55 | RAD REPORT ---
EXAM DESCRIPTION: CT head without IV contrast CLINICAL HISTORY: 41 years Male Intracranial shunt placement, follow up TECHNIQUE: Multiple axial CT images of the brain were performed followed by sagittal and coronal rec onstructed images. The CT study is performed according to ALARA (as low as reasonably achievable) or ALARA/IMAGE GENTLY, with automatic adjustment of mA and/or kV according to patient size. Performed on: 01/07/2022 at 12:32 AM COMPARISON: CT head without contrast performed on 10/12/2021. FINDINGS: Brain: There is no evidence of mass, acute mass effect or midline shift. There are no acut e extra-axial fluid collections. There is no evidence of acute intracranial hemorrhage. There is a stable right frontal ventricular shunt catheter. The tip of the catheter terminates in the region of the foramen of [place], similar to the prior study. There is stable decompression of the ventricles. Th e cerebral sulci are grossly within normal limits and are stable. No new focal abnormal areas of incr eased or decreased attenuation are identified. Paranasal Sinuses and Mastoids: There is trace mucosal thickening of the paranasal sinuses. The masto id air cells are essentially clear. There may be trace opacification of the left mastoid air cells. Orbits: The orbital contents are grossly unremarkable. Bones: No acute osseous abnormalities are identified. Soft Tissues: No focal soft tissue abnormalities are identified. IMPRESSION: 1. No evidence of acute intracranial pathology. 2. Stable right frontal ventricular shunt catheter with stable decompression of the ventricles. Electronically signed by: Yeimy Zamora DO 01/07/2022 1:54 AM CDT Due to temporary technical issues with the PACS/Fluency reporting system, reports are being signed by the in house radiologists without review as a courtesy to insure prompt reporting. The interpreting radiologist is fully responsible for the content of the report.
== END 2022-01-07 08:00 | disposition home or self-care (01) ==
LOC: ER 23:45
DX: R51.9 Headache, unspecified (principal); I10 Essential (primary) hypertension
CPT/HCPCS: 36415; 49427; 70450; 75809; 80048; 85025; 85610; 85730; 96374; 96375; 99284; J2175; J2405

== ENCOUNTER 2022-03-14 10:22 | Emergency (ER) | payer OTHER ==
--- OUTSIDE RECORDS SUMMARY | 2022-03-14 10:25 | XMS REPORT | Continuity of Care Document ---
:1980 Author Organization [facility] t Address [address] [place] [address] Care Team Providers Name Role Phone Asked, No Pcp Primary Care Physician Unavailable GERONIMO MICHELLE Attending Clinician Unavailable John Vazquez Attending Clinician Unavailable NOAH OSORIO Attending Clinician Unavailable MICHAEL LICONA M.D. Attending Clinician Unavailable ROBERT YOUSIF M.D. Attending Clinician Unavailable BRANT CEJA NP Attending Clinician Unavailable ANNETTE MUNOZ M.D. Attending Clinician Unavailable LORENZA SCHMITT M.D. Attending Clinician Unavailable FER ROTH NP Attending Clinician Unavailable SERJIO HUERTA D.O. Attending Clinician Unavailable NOAH OSORIO Admitting Clinician Unavailable Problems Condition Condition Condition Status Onset Resolution Last Treating Co mments Source Name Details Category Date Date Treatment Clinician Date Syncope Syncope Disease Active 2017-08 [facility] 0-14 00:00: [facility]osp[facility] 00 l Cubital Cubital Problem Active [facility] tunnel tunnel [...] Date Date Clinician Acetamin drug Active Headache [facility] ophen allergy Physici TABS ans Family History Family Member Diagnosis Comments Start Date Stop Date Source natural son Family history of [facility] asthma Mother Family history of [facility] multiple sclerosis Father Family history of [place] [facility] pain Unknown Family Family history of Family History [facility] Member diabetes mellitus Unknown Family Family history of Family History [facility] Member Heart trouble Unknown Family Family history of Family History [facility] Member hypertension Unknown Family Family history of Family History [facility] Member arthritis Unknown Family Family history of Family History [facility] Member malignant neoplasm Unknown Family Family history of Family History [facility] Member cerebrovascular accident (CVA) Social History Social Habit Start Date Stop Date Quantity Comments Source Tobacco use and 2018-05-25 2018-05-25 Never used [facility] exposure 00:00:00 00:00:00 Hospital Alcohol intake 2018-05-25 2018-05-25 Current [facility] 00:00:00 00:00:00 non-drinker of Hospital alcohol (finding) History of 2018-04-25 Cigarette Smoker Method[facility] t tobacco use 00:00:00 Hospital Sex Assigned At [birth year] [facility] 00:00:00 00:00:00 Hospital Smoking Status Start Date Stop Date Source Former smoker 2018-05-25 00:00:00 2018-05-25 00:00:00 [facility] Medications Ordered Filled Start Stop Current Ordering Indication Dosage Frequency Signature Comments Components Source Medication Medication Date Date Medication? Clinician (SIG) Name Name Marysol Gregg 2019-0 2020- No Norah 1 tablet Common e HCl e HCl 4-28 05-03 [place] as needed Spirit 00:00: 00:00 for n/v - [facility] 00 :00 [facility] SUMAtriptan SUMAtriptan Yes POURAN inject PRN UT [...] 1 tablet Commo n [place] as needed [facility] Losartan Losartan Yes Norah 1 tablet C ommon Potassium-H Potassium-H [place] [facility] CTZ CTZ [facility] Hydrocodone Hydrocodone Yes Norah 1 tablet Common -Acetaminop -Acetaminop [place] as needed [facility] hen hen [facility] Adderall XR Adderall XR Yes Norah 1 capsule Common [place] in the [facility] Omeprazole Omeprazole Yes Norah 1 capsule Common [place] 30 minutes [facility] before [facility] Dicyclomine Dicyclomine Yes Norah 1 tablet Common HCl HCl [place] [facility] No known No Methodi medications [facility] l Immunizations Ordered Immunization Filled Immunization Date Status Commen ts Source Name Name Taryn Quadrivalent 2018-06-03 Completed [facility] 0.5 [...] Systolic 2018-06-03 14:09:00 136 mm[Hg] Location: LUE; [facility] Position: Sitting BP Diastolic 2018-06-03 14:09:00 75 mm[Hg] Location: LUE; [facility] Position: Sitting Height 2018-06-03 14:09:00 75 [in_us] [facility] Weight 2018-06-03 14:09:00 317 [lb_av] [facility] Body Mass Index 2018-06-03 14:09:00 39.62 kg/m2 [facility] Calculated Temperature 2018-06-03 14:09:00 97.9 [degF] Method: Oral [facility] Heart Rate 2018-06-03 14:09:00 74 /min [facility] Procedures Procedure Date / Time Performed Performing Clinician [facility] e [U] XRAY KNEE 4 OR MORE VWS 2018-07-24 00:00:00 [facility] RIGHT [id number] Emg/Ncv 2018-06-20 00:00:00 [facility] s [facility] Sleep Lab - Sleep Study 2018-06-03 00:00:00 [facility] Split Night History of Cubital tunnel [facility] repair History of Appendectomy [facility] History of Wrist surgery [facility] History of Hemorrhoidectomy [facility] Plan of Care Planned Activity Planned Date Details Comments Source Diagnostic Test 2018-06-20 Emg/Ncv [code = [facility] Pending 00:00:00 Emg/Ncv] Diagnostic Test 2018-06-20 Emg/Ncv [code = [facility] Pending 00:00:00 Emg/Ncv] Future Scheduled Test COVID-19 VACCINE [facility] (1) [code = COVID-19 VACCINE (1)] Future Scheduled Test Hepatitis C [facility] screening (procedure) [code = 382364151] Future Scheduled Test INFLUENZA VACCINE [facility] [code = INFLUENZA VACCINE] Encounters Start End Encounter Admission Attending Care Care Encounter Source Date/Time Date/Time Type Type Clinicians Facility Department ID 2021-10-25 Outpatient MIGUEL ANGEL [facility] [address] [facility] 11:23:00 GERONIMO 2021-09-[address] [facility] [id number] Common 12:12:10 John [id number] [facility] 2021-09-06 Outpatient Vazquez, STLMLC STLMLC [id number] Common 12:10:54 John [id number] [facility] 2021-09-06 Outpatient Vazquez, STLMLC STLMLC [id number] Common 12:09:52 John 13010 [facility] 2021-09-06 Outpatient Vazquez, STLMLC STLMLC [id number] Common 11:54:05 John 76117 [facility] 2021-09-06 Outpatient Vazquez, STLMLC STLMLC [id number] Common 11:06:57 John [id number] [facility] 2021-09-06 Outpatient Vazquez, STLMLC STLMLC [id number] Common 11:06:47 John [id number] [facility] 2021-10-08 2021-10-10 Inpatient E DAY, NOAH [facility] 2057 [facility] 19:58:00 09:48:00 2021-10-03 2021-10-05 Inpatient DAY, NOAH [facility] 7505 [facility] 05:15:00 10:21:00 2021-05-11 2021-05-11 Outpatient STLMLC STLMLC [id number] Common 00:00:00 00:00:00 [facility] 2021-04-06 2021-04-06 Outpatient STLMLC STLMLC [id number] Common 00:00:00 00:00:00 [facility] 2021-04-06 2021-04-06 Outpatient STLMLC STLMLC [id number] Common 00:00:00 00:00:00 [facility] 2021-03-31 2021-03-31 Outpatient STLMLC STLMLC [id number] Common 00:00:00 00:00:00 [facility] 2020-07-20 2020-07-20 Outpatient STLMLC STLMLC [id number] Common 00:00:00 00:00:00 [facility] 2020-07-12 2020-07-12 Outpatient STLMLC STLMLC [id number] Common 00:00:00 00:00:00 [facility] 2020-05-23 2020-05-23 Outpatient STLMLC STLMLC [id number] Common 00:00:00 00:00:00 [facility] 2020-02-24 2020-02-24 [facility] [id number] Common 14:42:00 14:42:[address] [facility] 2020-02-22 2020-02-22 [facility] [id number] Common 13:51:00 13:51:[address] [facility] 2019-12-10 2019-12-10 [facility] [id number] Common 15:39:00 15:39:[address] [facility] 2019-12-08 2019-12-08 [facility] [id number] Common 13:40:00 13:40:[address] [facility] 2019-12-07 2019-12-07 [facility] [id number] Common 12:05:00 12:05:[address] [facility] 2019-11-16 2019-11-16 [facility] [id number] Common 11:00:00 11:00:00 [facility] 2019-09-29 2019-09-29 [facility] [id number] Common 09:21:00 09:21:00 t [facility] 2019-09-21 2019-09-21 [facility] [id number] Common 14:00:00 14:00:00 t [facility] 2019-03-13 2019-03-13 EUNICE Diaz [id number] [facility] 09:00:00 09:00:00 t; Lesa RODRIGUEZ Ph savannah Roberto M.D. 2018-10-02 2018-10-02 [facility] [id number] [place] 15:00:00 15:00:00 t; Asher JONES i, M.D. ans POURAN, M.D. 2018-09-25 2018-09-25 [facility] [id number] [place] 10:30:00 10:30:00 t; BRANT CEJA, SHANE Health and Valery GUO, SHANE Wellness [facility] 2018-09-22 2018-09-22 [facility] BENJAVA [facility] [id number] [place] 15:30:00 15:30:00 t; ROBERT [facility] Lesa Cruz i, M.D. 2018-08-22 2018-08-22 [facility] [id number] [place] 09:30:00 09:30:00 t; [facility] 2018-07-29 2018-07-29 [facility] [id number] [place] 14:30:00 14:30:00 t; [facility] 2018-07-25 2018-07-25 [facility] [id number] [place] 10:30:00 10:30:00 t; Lesa BRITT [facility] KESHIAsavannah M.D. 2018-07-22 2018-07-22 [facility] [id number] [place] 11:15:00 11:15:00 t; Lesa BRYANT [facility] Valery MUNOZ, Orthopedics savannah BRYANT M.D. 2018-07-15 2018-07-15 [facility] [id number] [place] 10:30:00 10:30:00 t; Lesa [facility] MUN[facility], Orthopedics savannah BRYANT M.D. 2018-07-09 2018-07-09 [facility] [id number] [place] 13:00:00 13:00:00 t; Lesa BRYANT savannah Rios M.D. 2018-06-30 2018-06-30 [facility] [id number] [place] 10:15:00 10:15:00 t; Lesa BRYANT [facility] Valery MUNOZ, Orthopedics savannah BRYANT M.D. 2018-06-20 2018-06-20 [facility] [id number] [place] 13:40:00 13:40:00 t; SHANE MONROE [facility] P hysici GONZALEZ, Orthopedics a boyd MONROE NP 2018-06-19 2018-06-19 [facility] [id number] [place] 08:15:00 08:15:00 t; SERJIO HUERTA D.O. Physici KERRY, ans D.O. 2018-06-17 2018-06-17 [facility] [id number] [place] 15:45:00 15:45:00 t; Lesa BRYANT [facility] Valery MUNOZ Orthopedics savannah BRYANT M.D. 2018-06-03 2018-06-03 [facility] BRADLEYVA [facility] [id number] [place] 13:45:00 13:45:00 t; SERJIO HUERTA D.O. [facility] savannah Vora D.O. Results Test Description Test Time Test Comments Results Result Sour e Comments [U] XRAY ELBOW 2 2018-06-17 Images [facility] VWS RIGHT [id number] 15:57:00 acquired, not reported on this accession number. [U] XRAY WRIST MIN 2018-06-17 [facility] 3 VWS RIGHT [id number] 15:57:00 acquired, not reported on this accession number.
[2022-03-14 11:23] LABS: Absolute Lymphocytes (CBC) 1.5 K/uL (0.7-4.9); Hematocrit 42.9 % (39.6-49.0); Lymphocytes % 9.7 % (15.3-44.8); MCV 83.8 fL (80-100); MPV 9.1 fL (7.6-11.3); RBC Red Blood Cell Count 5.12 M/uL (4.33-5.43)
[2022-03-14] MEDS ORDERED: METOCLOPRAMIDE 10 MG/2mL INJ ONE (11:24)
[2022-03-14] MEDS ORDERED: CEFTRIAXONE 1000 MG/VIAL ONE (11:25)
[2022-03-14] MEDS ORDERED: DIPHENHYDRAMINE 50 MG/ML VIAL ONE (11:25)
[2022-03-14] MEDS ORDERED: KETOROLAC 30 MG/ML INJ ONE (11:25)
[2022-03-14] MEDS ORDERED: NA CHLORIDE 0.9% 100 ML ONE (11:26)
[2022-03-14] MEDS ORDERED: NA CHLORIDE 0.9% 1,000 ML ONE (11:26)
[2022-03-14 11:36] LABS: Albumin 3.4 g/dL (3.4-5.0); Bilirubin Total 0.6 mg/dL (0.2-1.0); Protein, Total 7.2 g/dL (6.4-8.2)
[2022-03-14 11:37] LABS: Potassium 4.5 mmol/L (3.5-5.1)
[2022-03-14] MEDS ORDERED: AMOX/K CLAV 875 MG TAB ONE (12:47)
--- NOTE | 2022-03-14 13:04 | RAD REPORT ---
EXAM DESCRIPTION: RAD - Shuntogram - 03/14/2022 12:30 pm CLINICAL HISTORY: PAIN, history COMPARISON: Shuntogram dated 01/07/2022 TECHNIQUE: Multiple images of the head, neck, chest and abdomen were obtained as a shunt series. FINDINGS: No break of the shunt tubing. No abnormal bend or kink of the tubing seen. Intracranial po rtion of the shunt tube is unremarkable. Tubing terminates in the upper abdomen. No significant e noted from the 01/07/2022 study. IMPRESSION: Negative shunt series.
--- NOTE | 2022-03-14 13:09 | EDPHYS ---
Physician Documentation [facility] Name: Terry Akins Sr Age: 41 yrs Sex: Male : 1980 Arrival Date: 03/14/2022 Time: 10:24 Bed 10 Private MD: ED Physician Talon Whitt HPI: 03/14 11:55 This 41 yrs old Black Male presents to ER via Ambulatory with complaints of Headache. sin 11:55 The patient complains of pain to the left ear, right side of the back of head, right sin occipital area and right base of the skull. The patient describes the headache as aching. Onset: The symptoms/episode began/occurred 2 day(s) ago. Associated signs and symptoms: The patient has no apparent associated signs or symptoms. Severity of symptoms: At its worst the pain was mild, moderate, in the emergency department the pain is unchanged. Headache History: The patient has had previous headaches and this one is similar to previous episodes. The symptoms are alleviated by nothing. the symptoms are aggravated by nothing. The patient has experienced similar episodes in the past, multiple times. Historical: - Allergies: 10:33 No Known Allergies; tw2 - Home Meds: 10:33 None [Active]; tw2 - PMHx: 10:33 Hypertensive disorder; tw2 - PSHx: 10:33 Appendectomy; carpal tunnel right; hernia; left hand tendonitis; Nerve transplantion; tw2 shunt; - Immunization history:: Client reports receiving the 2nd dose of the Covid vaccine. - Social history:: Smoking status: Reported history of juuling and/or vaping. Patient uses street drugs, marijuana. - Family history:: not pertinent. ROS: 11:55 Constitutional: Negative for fever, chills, and weight loss, Eyes: Negative for injury, sin pain, redness, and discharge, ENT: Negative for injury, pain, and discharge, Neck: Negative for injury, pain, and swelling, Cardiovascular: Negative for chest pain, palpitations, and edema, Respiratory: Negative for shortness of breath, cough, wheezing, and pleuritic chest pain, Abdomen/GI: Negative for abdominal pain, nausea, vomiting, diarrhea, and constipation, Back: Negative for injury and pain, : Negative for injury, bleeding, discharge, and swelling, MS/Extremity: Negative for injury and deformity, Skin: Negative for injury, rash, and discoloration, Psych: Negative for depression, anxiety, suicide ideation, homicidal ideation, and hallucinations, Allergy/Immunology: Negative for hives, rash, and allergies, Endocrine: Negative for neck swelling, polydipsia, polyuria, polyphagia, and marked weight changes. 11:55 Neuro: Positive for headache. Exam: 11:55 Constitutional: This is a well developed, well nourished patient who is awake, alert, sin and in no acute distress. Head/Face: Normocephalic, atraumatic. Eyes: Pupils equal round and reactive to light, extra-ocular motions intact. Lids and lashes normal. Conjunctiva and sclera are non-icteric and not injected. Cornea within normal limits. Periorbital areas with no swelling, redness, or edema. ENT: Nares patent. No nasal discharge, no septal abnormalities noted. Tympanic membranes are normal and external auditory canals are clear. Oropharynx with no redness, swelling, or masses, exudates, or evidence of obstruction, uvula midline. Mucous membranes moist. Neck: Trachea midline, no thyromegaly or masses palpated, and no cervical lymphadenopathy. Supple, full range of motion without nuchal rigidity, or vertebral point tenderness. No Meningismus. Chest/axilla: Normal chest wall appearance and motion. Nontender with no deformity. No lesions are appreciated. Cardiovascular: Regular rate and rhythm with a normal S1 and S2. No gallops, murmurs, or rubs. Normal PMI, no JVD. No pulse deficits. Respiratory: Lungs have equal breath sounds bilaterally, clear to auscultation and percussion. No rales, rhonchi or wheezes noted. No increased work of breathing, no retractions or nasal flaring. Abdomen/GI: Soft, non-tender, with normal bowel sounds. No distension or tympany. No guarding or rebound. No evidence of tenderness throughout. Back: No spinal tenderness. No costovertebral tenderness. Full range of motion. Male : Normal genitalia with no discharge or lesions. Skin: Warm, dry with normal turgor. Normal color with no rashes, no lesions, and no evidence of cellulitis. MS/ Extremity: Pulses equal, no cyanosis. Neurovascular intact. Full, normal range of motion. Neuro: Awake and alert, GCS 15, oriented to person, place, time, and situation. Cranial nerves II-XII grossly intact. Motor strength 5/5 in all extremities. Sensory grossly intact. Cerebellar exam normal. Normal gait. Psych: Awake, alert, with orientation to person, place and time. Behavior, mood, and affect are within normal limits. 11:55 Neck: External neck: is normal, no acute changes, C-spine: appears grossly normal, no acute changes, Thyroid: appears normal, Trachea: is midline with no obvious abnormalities, ROM/movement: is normal, is supple, without pain, no range of motions limitations, no meningismus, no nuchal rigidity, negative Brudzinski's sign, negative Kernig's sign. Vital Signs: 10:29 BP 170 / 103; Pulse 87; Resp 17; Temp 97.8(TE); Pulse Ox 100% on R/A; Pain 10/10; tw2 11:10 BP 155 / 95; Pulse 87; Resp 18 S; Pulse Ox 99% on R/A; Pain 9/10; ha1 13:15 BP 146 / 83; Pulse 67; Resp 18 S; Pulse Ox 100% on R/A; Pain 2/10; ha1 14:00 BP 146 / 83; Pulse 75; Resp 16 S; Pulse Ox 100% on R/A; Pain 2/10; aa5 Omar Coma Score: 11:57 Eye Response: spontaneous(4). Verbal Response: oriented(5). Motor Response: obeys sin commands(6). Total: 15. MDM: 10:43 Patient medically screened. sin 11:57 Differential diagnosis: hypertensive headache, intracerebral hemorrhage, migraine, sin otitis, subarachnoid bleed, tension headache. Data reviewed: vital signs, nurses notes, lab test result(s), radiologic studies, CT scan, plain films. Data interpreted: quality assurance monitor final: rate is 87 beats/min, rhythm is regular, Pulse oximetry: on room air is 100 %. Test interpretation: by ED physician or midlevel provider: plain radiologic studies. Counseling: I had a detailed discussion with the patient and/or guardian regarding: the historical points, exam findings, and any diagnostic results supporting the discharge/admit diagnosis, lab results, radiology results, the need for outpatient follow up, for definitive care, an design intern, a neurologist. 03/14 10:45 Order name: CBC with Diff; Complete Time: 11:54 [facility] 03/14 10:45 Order name: Comprehensive Metabolic Panel; Complete Time: 11:54 [facility] 03/14 11:54 Order name: Shuntogram XRAY; Complete Time: 13:07 [facility] 03/14 10:47 Order name: IV Start; Complete Time: 11:09 tw2 Administered Medications: 11:25 Drug: NS 0.9% 1000 ml Route: IV; Rate: 1 bolus; Site: right antecubital; ha1 11:25 Drug: Ketorolac 30 mg Route: IVP; Site: right antecubital; ha1 11:28 Drug: Reglan (metoCLOPramide) 10 mg Route: IVP; Site: right antecubital; ha1 11:29 Drug: Benadryl (diphenhydrAMINE) 50 mg Route: IVP; Site: right antecubital; ha1 12:43 Drug: Augmentin (Amoxicillin-Clavulanate) 875 mg Route: PO; ha1 12:50 Drug: Rocephin (cefTRIAXone) 1 grams Route: IV; Rate: per protocol; Site: right ha1 antecubital; Disposition Summary: 03/14/22 13:08 Discharge Ordered Location: Home sin Problem: new sin Symptoms: have improved sin Condition: Stable sin Diagnosis - Essential (primary) hypertension sin - Headache - presence of MANAGER EXCHANGE Shunt sin - Elevated white blood cell count sin Followup: sin - With: Private Physician - When: 2 - 3 days - Reason: Recheck today's complaints, Continuance of care, Re-evaluation by your physician Followup: sin - With: - When: 2 - 3 days - Reason: Recheck today's complaints, Re-evaluation by your physician Discharge Instructions: - Migraine Headache sin - Hypertension, Adult sin - Brain Shunt Home Guide sin - Hypertension, Adult, [id number] sin - How to Take Your Blood Pressure, [id number] sin - Brain Shunt Placement, Care After sin - Discharge Summary Sheet tw2 - Managing Your Hypertension sin Forms: - Medication Reconciliation Form sin - Thank You Letter sin - Antibiotic Education sin - Work release form tw2 - Prescription Opioid Use sin Prescriptions: - Augmentin 875-125 mg Oral Tablet - take 1 tablet by ORAL route every 12 hours for 10 days; 20 tablet; Refills: 0, sin Product Selection Permitted - Tramadol 50 mg Oral Tablet - take 1 tablet by ORAL route every 8 hours as needed; 20 tablet; Refills: 0, sin Product Selection Permitted Signatures: Dispatcher [employer] Talon Vargas, Leti Correa MD, cha RN RN tw2 Anne Donovan RN RN ha1 Corrections: (The following items were deleted from the chart) 11:00 10:45 Head Brain Wo [email or web address] ordered. EDMS EDMS
--- NOTE | 2022-03-14 13:09 | ER ---
Nurse's Notes [facility] Name: Terry Akins Sr Age: 41 yrs Sex: Male : 1980 Arrival Date: 03/14/2022 Time: 10:24 Bed 10 Private MD: Diagnosis: Essential (primary) hypertension;Headache-presence of REGULATORY AFFAIRS INTERN Shunt;Elevated white blood cell count Presentation: 03/14 10:29 Note pt in restroom at this time. tw2 10:29 Chief complaint: Patient states: i have had a migraine since yesterday. [facility] to [facility] and they gave me a whole bunch of medicine and it worked but its back this morning. pain all on my LEFT side. i need a mastoidectomy i have had an ear infection on the LEFT ear and the infection never goes away no matter what kind of medicine they give me. Coronavirus screen: At this time, the client does not indicate any symptoms associated with coronavirus-19. Ebola Screen: Patient denies travel to an Ebola-affected area in the 21 days before illness onset. Initial Sepsis Screen: Does the patient meet any 2 criteria? No. Patient's initial sepsis screen is negative. Does the patient have a suspected source of infection? No. Patient's initial sepsis screen is negative. Risk Assessment: Do you want to hurt yourself or someone else? Patient reports no desire to harm self or others. Onset of symptoms was March 14, 2022. 10:29 Method Of Arrival: Ambulatory tw2 10:29 Acuity: SARITHA 3 tw2 Triage Assessment: 10:33 Headache History: The patient has had previous headaches and this one is more severe tw2 than previous episodes. General: Appears in no apparent distress. uncomfortable, Behavior is calm, cooperative, appropriate for age. Pain: Complains of pain in left ear and left side of head. Pain: Pain currently is 8 out of 10 on a pain scale. Pain began couple months Also complains of nausea. EENT: Neuro: Reports headache. Historical: - Allergies: 10:33 No Known Allergies; tw2 - Home Meds: 10:33 None [Active]; tw2 - PMHx: 10:33 Hypertensive disorder; tw2 - PSHx: 10:33 Appendectomy; carpal tunnel right; hernia; left hand tendonitis; Nerve transplantion; tw2 shunt; - Immunization history:: Client reports receiving the 2nd dose of the Covid vaccine. - Social history:: Smoking status: Reported history of juuling and/or vaping. Patient uses street drugs, marijuana. - Family history:: not pertinent. Screenin:37 Abuse screen: Denies threats or abuse. Nutritional screening: No deficits noted. tw2 Tuberculosis screening: No symptoms or risk factors identified. Fall Risk None identified. Assessment: 10:32 General: Appears comfortable, Behavior is calm, cooperative, Reports headache that has ha1 been off and on after shunt insertion for over a year. 10:32 Pain: Complains of pain in left frontal area, left temporal area and left ear Pain does ha1 not radiate. Pain at worst was 10 out of 10 on a pain scale. Quality of pain is described as throbbing, Pain began pt. stated it has been over a year Is intermittent, Alleviated by medications, rest. Neuro: Level of Consciousness is awake, alert, obeys commands, Oriented to person, place, time, situation. 10:32 Cardiovascular: Heart tones S1 S2 present Capillary refill < 3 seconds. Respiratory: ha1 Airway is patent Respiratory pattern is regular, symmetrical. GI: No signs and/or symptoms were reported involving the gastrointestinal system. : No signs and/or symptoms were reported regarding the genitourinary system. EENT: No signs and/or symptoms were reported regarding the EENT system. Derm: Skin is intact, is healthy with good turgor, Skin is warm and dry. color normal to its complexion. Musculoskeletal: Capillary refill < 3 seconds, Range of motion: intact in all extremities. 11:48 Reassessment: Patient and/or family updated on plan of care and expected duration. Pain ha1 level reassessed. on the phone talking to relative. denies any concerns. 13:00 Reassessment: Patient and/or family updated on plan of care and expected duration. Pain ha1 level reassessed. Patient is alert, oriented x 3, equal unlabored respirations, skin warm/dry/pink. provided a sandwich and soda. 14:05 Reassessment: Patient and/or family updated on plan of care and expected duration. Pain ha1 level reassessed. stated that pain has been relieved. pain 09/21. 14:20 Neuro: Level of Consciousness is awake, alert, obeys commands, Oriented to person, aa5 place, time, situation. Respiratory: Airway is patent Respiratory effort is even, unlabored, Respiratory pattern is regular, symmetrical. Derm: Skin is dry, Skin is normal, Skin temperature is warm. Vital Signs: 10:29 BP 170 / 103; Pulse 87; Resp 17; Temp 97.8(TE); Pulse Ox 100% on R/A; Pain 10/10; tw2 11:10 BP 155 / 95; Pulse 87; Resp 18 S; Pulse Ox 99% on R/A; Pain 9/10; ha1 13:15 BP 146 / 83; Pulse 67; Resp 18 S; Pulse Ox 100% on R/A; Pain 2/10; ha1 14:00 BP 146 / 83; Pulse 75; Resp 16 S; Pulse Ox 100% on R/A; Pain 2/10; aa5 Omar Coma Score: 11:57 Eye Response: spontaneous(4). Verbal Response: oriented(5). Motor Response: obeys [facility] commands(6). Total: 15. ED Course: 10:24 Patient arrived in ED. mr 10:33 Triage completed. tw2 10:35 Arm band placed on. tw2 10:36 Bed in low position. Call light in reach. Pulse ox on. NIBP on. tw2 10:43 Talon Whitt MD is Attending Physician. sin 11:09 Inserted saline lock: 20 gauge in right antecubital area, using aseptic technique. mb7 Blood collected. 11:09 Comprehensive Metabolic Panel Sent. mb7 11:09 CBC with Diff Sent. mb7 11:11 Anne Donovan RN is Primary Nurse. ha1 12:32 Shuntogram XRAY In Process Unspecified. EDMS 13:08 Dirk Patel MD is Referral Physician. sin 14:20 No provider procedures requiring assistance completed. IV discontinued, intact, aa5 bleeding controlled, No redness/swelling at site. Pressure dressing applied. Administered Medications: 11:25 Drug: NS 0.9% 1000 ml Route: IV; Rate: 1 bolus; Site: right antecubital; ha1 11:25 Drug: Ketorolac 30 mg Route: IVP; Site: right antecubital; ha1 11:28 Drug: Reglan (metoCLOPramide) 10 mg Route: IVP; Site: right antecubital; ha1 11:29 Drug: Benadryl (diphenhydrAMINE) 50 mg Route: IVP; Site: right antecubital; ha1 12:43 Drug: Augmentin (Amoxicillin-Clavulanate) 875 mg Route: PO; ha1 12:50 Drug: Rocephin (cefTRIAXone) 1 grams Route: IV; Rate: per protocol; Site: right ha1 antecubital; Medication: 10:38 VIS not applicable for this client. tw2 Outcome: 13:08 Discharge ordered by MD. vogt 14:20 Discharged to home ambulatory. aa5 14:20 Condition: improved 14:20 Discharge instructions given to patient, Instructed on discharge instructions, follow up and referral plans. medication usage, Demonstrated understanding of instructions, follow-up care, medications, Prescriptions given X 2. 14:26 Patient left the ED. aa5 Signatures: Dispatcher [employer] EDMS Talon Whitt MD MD cha Rivera, Mary mr Calderon, Audri, RN RN aa5 Leti Flor RN RN 2 Ghislaine Arredondo 7 Anne Donovan, BRYN RN 1 Corrections: (The following items were deleted from the chart) 14:25 11:45 BP 155 / 95; Pulse 87bpm; Resp 18bpm; Spontaneous; Pulse Ox 99% RA; Pain 9/10; ha1ha1
[2022-03-14 15:30] VITALS: TEMP 97.8
[2022-03-14 15:35] VITALS: BP 146/83; O2SAT 100
== END 2022-03-14 14:26 | disposition home or self-care (01) ==
LOC: ER 10:22
DX: R51.9 Headache, unspecified (principal); I10 Essential (primary) hypertension; D72.829 Elevated white blood cell count, unspecified; Z98.2 Presence of cerebrospinal fluid drainage device
CPT/HCPCS: 85025; 36415; 80053; 75809; 49427; J2765; J1200; J7030

== ENCOUNTER 2022-03-26 12:46 | Emergency (ER) | payer OTHER ==
--- OUTSIDE RECORDS SUMMARY | 2022-03-26 12:49 | XMS REPORT | Continuity of Care Document ---
:1980 Author Organization [facility] t Address [address] [place] [address] Care Team Providers Name Role Phone Asked, [...] Tobacco use and 2018-05-25 2018-05-25 Never used Alevism exposure 00:00:00 00:00:00 Hospital Alcohol intake 2018-05-25 2018-05-25 Current Alevism 00:00:00 00:00:00 non-drinker of Hospital alcohol (finding) History of 2018-04-25 Cigarette Smoker Methodis t tobacco use 00:00:00 Hospital Sex Assigned At [birth year] Alevism 00:00:00 00:00:00 Hospital Smoking Status Start Date Stop Date Source Former smoker 2018-05-25 00:00:00 2018-05-25 00:00:00 [facility] Medications Ordered Filled Start Stop Current Ordering Indication Dosage Frequency Signature Comments Components Source Medication Medication Date Date Medication? Clinician (SIG) Name Name Marysol Gregg 2019-0 2020- No Norah 1 tablet Common e HCl e HCl 4-28 05-03 [place] as needed [facility] 00:00: 00:00 for n/v - [facility] 00 :00 [facility] SUMAtriptan SUMAtriptan Yes POURAN inject PRN [place] [...] 1 tablet Commo n [place] as needed [facility] Losartan Losartan Yes Norah 1 tablet C ommon Potassium-H Potassium-H [place] [facility] CTZ CTZ [facility] Hydrocodone Hydrocodone Yes Norah 1 tablet Common -Acetaminop -Acetaminop [place] as needed [facility] hen hen [facility] Adderall XR Adderall XR Yes Norah 1 capsule Common [place] in the [facility] Omeprazole Omeprazole Yes Norah 1 capsule Common [place] 30 minutes [facility] before [facility] Dicyclomine Dicyclomine Yes Norah 1 tablet Common HCl HCl [place] [facility] No known No Methodi medications [facility] l Immunizations Ordered Immunization Filled Immunization Date [...] Systolic 2018-06-03 14:09:00 136 mm[Hg] Location: LUE; [facility] Position: Sitting BP Diastolic 2018-06-03 14:09:00 75 mm[Hg] Location: LUE; [facility] Position: Sitting Height 2018-06-03 14:09:00 75 [in_us] [facility] Weight 2018-06-03 14:09:00 317 [lb_av] [facility] Body Mass Index 2018-06-03 14:09:00 39.62 kg/m2 [facility] Calculated Temperature 2018-06-03 14:09:00 97.9 [degF] Method: Oral [facility] Heart Rate 2018-06-03 14:09:00 74 /min [facility] Procedures Procedure Date / Time Performed Performing Clinician [facility] e [U] XRAY KNEE 4 OR MORE VWS 2018-07-24 00:00:00 [facility] RIGHT [id number] Emg/Ncv 2018-06-20 00:00:00 [facility] Sleep Lab - Sleep Study 2018-06-03 00:00:00 [facility] Split Night History of Cubital tunnel [...] 00:00:00 Emg/Ncv] Future Scheduled Test COVID-19 VACCINE [facility] (1) [code = COVID-19 VACCINE (1)] Future Scheduled Test Hepatitis C Method [facility] Hospital screening (procedure) [code = 454167238] Future Scheduled Test INFLUENZA VACCINE [facility] [code = INFLUENZA VACCINE] Encounters Start End Encounter Admission Attending Care Care Encounter Source Date/Time Date/Time Type Type Clinicians Facility Department ID 2021-10-25 Outpatient MIGUEL ANGEL [facility] ANAY [address] [facility] 11:23:00 GERONIMO 2021-09-06 Outpatient George [facility] [id number] Common 12:12:10 John [id number] [facility] 2021-09-06 Outpatient Vazquez, STLMLC STLMLC [id number] Common 12:10:54 John [id number] [facility] 2021-09-06 Outpatient Vazquez, STLMLC STLMLC [id number] Common 12:09:52 John [id number] [facility] 2021-09-06 Outpatient Vazquez, STLMLC STLMLC [id number] Common 11:54:05 John [id number] [facility] 2021-09-06 Outpatient Vazquez, STLMLC STLMLC [id number] Common 11:06:57 John [id number] [facility] 2021-09-06 Outpatient Vazquez, STLMLC STLMLC [id number] Common 11:06:47 John [id number] [facility] 2021-10-08 2021-10-10 Inpatient E DAY, NOAH [facility] [id number] [facility] 19:58:00 09:48:00 2021-10-03 2021-10-05 Inpatient DAY, NOAH [facility] [id number] [facility] 05:15:00 10:21:00 2021-05-11 2021-05-11 Outpatient STLMLC STLMLC [id number] Common 00:00:00 00:00:00 [facility] 2021-04-06 2021-04-06 Outpatient STLMLC STLMLC [id number] Common 00:00:00 00:00:00 [facility] 2021-04-06 2021-04-06 Outpatient STLMLC STLMLC [id number] Common 00:00:00 00:00:00 [facility] 2021-03-31 2021-03-31 Outpatient STLMLC STLMLC [id number] Common 00:00:00 00:00:00 [facility] 2020-07-20 2020-07-20 Outpatient STLMLC STLMLC [id number] Common 00:00:00 00:00:00 [facility] 2020-07-12 2020-07-12 Outpatient STLMLC STLMLC [id number] Common 00:00:00 00:00:00 [facility] 2020-05-23 2020-05-23 Outpatient STLMLC STLMLC [id number] Common 00:00:00 00:00:00 [facility] 2020-02-24 2020-02-24 [facility] [id number] Common 14:42:00 14:42:00 [place] [address] [facility] 2020-02-22 2020-02-22 [facility] [id number] Common 13:51:00 13:51:[address] [facility] 2019-12-10 2019-12-10 [facility] [id number] Common 15:39:00 15:39:[address] [facility] 2019-12-08 2019-12-08 [facility] [id number] Common 13:40:00 13:40:[address] [facility] 2019-12-07 2019-12-07 [facility] [id number] Common 12:05:00 12:05:[address] [facility] 2019-11-16 2019-11-16 [facility] [id number] Common 11:00:00 11:00:00 [facility] 2019-09-29 2019-09-29 [facility] [id number] Common 09:21:00 09:21:00 t [facility] 2019-09-21 2019-09-21 [facility] [id number] Common 14:00:00 14:00:00 t [facility] 2019-03-13 2019-03-13 EUNICE Diaz [id number] [facility] 09:00:00 09:00:00 t; Lesa RODRIGUEZ Ph savannah Roberto M.D. 2018-10-02 2018-10-02 [facility] [id number] [place] 15:00:00 15:00:00 t; Asher JONES i, M.D. ans POURAN, M.D. 2018-09-25 2018-09-25 [facility] [id number] [place] 10:30:00 10:30:00 t; BRANT CEJA, SHANE Health and Valery GUO, SHANE Wellness [facility] 2018-09-22 2018-09-22 [facility] [id number] [place] 15:30:00 15:30:00 t; ROBERT [facility] Lesa Cruz i, M.D. 2018-08-22 2018-08-22 [facility] [id number] [place] 09:30:00 09:30:00 t; [facility] 2018-07-29 2018-07-29 [facility] [id number] [place] 14:30:00 14:30:00 t; Lesa [facility] M[facility] 2018-07-25 2018-07-25 [facility] [id number] [place] 10:30:00 10:30:00 t; Lesa BRITT [facility] KESHIAsavannah M.D. 2018-07-22 2018-07-22 [facility] [id number] [place] 11:15:00 11:15:00 t; Lesa BRYANT [facility] Valery MUNOZ, Orthopedics savannah BRYANT M.D. 2018-07-15 2018-07-15 [facility] [id number] [place] 10:30:00 10:30:00 t; [facility], Orthoped[facility] savannah BRYANT M.D. 2018-07-09 2018-07-09 [facility] [id number] [place] 13:00:00 13:00:00 t; Lesa BRYANT savannah Rios M.D. 2018-06-30 2018-06-30 [facility] [id number] [place] 10:15:00 10:15:00 t; Lesa BRYANT [facility] Valery MUNOZ, Orthopedics savannah BRYANT M.D. 2018-06-20 2018-06-20 [facility] [id number] [place] 13:40:00 13:40:00 t; SHANE MONROE [facility] P hysici GONZALEZ, Orthopedics a boyd MONROE NP 2018-06-19 2018-06-19 [facility] [id number] [place] 08:15:00 08:15:00 t; SERJIO HUERTA D.O. Physici KERRY, ans D.O. 2018-06-17 2018-06-17 [facility] [id number] [place] 15:45:00 15:45:00 t; Lesa BRYANT [facility] Valery MUNOZ Orthopedics savannah BRYANT M.D. 2018-06-03 2018-06-03 [facility] [id number] [place] 13:45:00 13:45:00 t; SERJIO HUERTA D.O. [facility] savannah Vora D.O. Results Test Description Test Time Test Comments Results Result Sour e Comments [U] XRAY ELBOW 2 2018-06-17 [facility] VWS RIGHT [id number] 15:57:00 acquired, not reported on this accession number. [U] XRAY WRIST MIN 2018-06-17 [facility] 3 VWS RIGHT [id number] 15:57:00 acquired, not reported on this accession number.
[2022-03-26] MEDS ORDERED: PANTOPRAZOLE 40 MG INJ ONE (13:05)
[2022-03-26] MEDS ORDERED: NA CHLORIDE 0.9% 1,000 ML ONE ×2 (13:05→15:25)
[2022-03-26] MEDS ORDERED: MORPHINE 4 MG/ML SYR ONE (13:05)
[2022-03-26] MEDS ORDERED: ONDANSETRON 4 MG/2 ML VIAL ONE ×2 (13:05→16:58)
[2022-03-26 13:06] LABS: Absolute Lymphocytes (CBC) 1.5 K/uL (0.7-4.9); Hematocrit 48.1 % (39.6-49.0); Lymphocytes % 16.4 % (15.3-44.8); MCV 84.1 fL (80-100); MPV 8.9 fL (7.6-11.3); RBC Red Blood Cell Count 5.72 M/uL (4.33-5.43)
[2022-03-26 13:15] LABS: Protime INR 0.92
[2022-03-26] MEDS ORDERED: HYDRALAZINE HCL 20 MG/ML VIAL ONE (13:34)
[2022-03-26 13:56] LABS: Albumin 3.9 g/dL (3.4-5.0); Bilirubin Direct 0.2 mg/dL (0-0.2); Bilirubin Total 0.8 mg/dL (0.2-1.0); Magnesium 2.1 mg/dL (1.8-2.4); Potassium 4.4 mmol/L (3.5-5.1); Protein, Total 7.9 g/dL (6.4-8.2); Troponin High Sensitivity 6.6 pg/mL (<58.9)
--- NOTE | 2022-03-26 14:27 | RAD REPORT ---
EXAM DESCRIPTION: Audie Single View03/26/2022 1:29 pm CLINICAL HISTORY: Abdominal pain COMPARISON: September 2021 FINDINGS: The lungs appear clear of acute infiltrate. The heart is normal size IMPRESSION: No acute abnormalities displayed
[2022-03-26] MEDS ORDERED: DIPHENHYDRAMINE 50 MG/ML VIAL ONE (14:30)
[2022-03-26] MEDS ORDERED: HYDROMORPHONE HCL 1 MG/ML INJ ONE ×2 (14:31→16:58)
--- NOTE | 2022-03-26 14:34 | RAD REPORT ---
EXAM DESCRIPTION: CT - Head Brain Wo Cont - 03/26/2022 2:12 pm CLINICAL HISTORY: Headache COMPARISON: December 2021 TECHNIQUE: Computed axial tomography of the head was obtained. IV contrast was not requested. All CT scans are performed using dose optimization technique as appropriate and may include automated exposure control or mA/KV adjustment according to patient size. FINDINGS: An intracranial bleed is not seen . Right ventriculostomy in place with decompression of the ventricles. No change in the appearance of t he ventricles since the prior exam No extra-axial fluid collection is noted. Fluid within the sinuses/ mastoids is not seen. IMPRESSION: Small ventricles unchanged from the prior exam may be normal for the patient or indicate slit ventricle syndrome
--- NOTE | 2022-03-26 14:44 | RAD REPORT ---
EXAM DESCRIPTION: CT - Abdomen Pelvis Wo Contrast - 03/26/2022 2:14 pm CLINICAL HISTORY: Abdominal pain COMPARISON: September 2021 TECHNIQUE: Computed axial tomography of the abdomen and pelvis was obtained. IV and oral contrast we re not requested. All CT scans are performed using dose optimization technique as appropriate and may include automated exposure control or mA/KV adjustment according to patient size. FINDINGS: The evaluation of solid organs, vessels and bowel is limited secondary to the lack of con trast administration. The liver, spleen, pancreas, adrenals and left kidney appear grossly normal. Mild malrotation right kidney. REGISTRATION MANAGER shunt with its tip in the right lower quadrant. No surrounding fluid collection. Small inguinal hernias contain fat. There is no evidence of diverticulitis. IMPRESSION: No acute abnormality is displayed.
[2022-03-26] MEDS ORDERED: DIAZEPAM 10 MG/2 ML INJ SYRINGE ONE (15:25)
[2022-03-26 15:27] LABS: Urine Blood Negative (Negative); Urine Glucose Negative (Negative); Urine Protein 1+ (Negative); Urine Specific Gravity 1.025 (1.005-1.030); Urine pH 6.5 (5.0-7.0)
[2022-03-26 15:49] LABS: Urine Bacteria <20 /HPF (<20); Urine Mucus 1+ /HPF (None Seen)
[2022-03-26 15:53] LABS: Barbiturates NEGATIVE (NEGATIVE); Benzodiazepines NEGATIVE (NEGATIVE); Cocaine NEGATIVE (NEGATIVE); METHAMPHETAM NEGATIVE (NEGATIVE); Methadone NEGATIVE (NEGATIVE); Opiates POSITIVE (NEGATIVE); Phencyclidine NEGATIVE (NEGATIVE); THC Cannibis POSITIVE (NEGATIVE)
--- NOTE | 2022-03-26 16:07 | ER ---
Nurse's Notes [facility] Name: Terry Akins Sr Age: 41 yrs Sex: Male : 1980 Arrival Date: 03/26/2022 Time: 12:47 Bed 16 Private MD: Diagnosis: Upper abdominal pain, unspecified;Nausea with vomiting, unspecified;Headache;Hypertensive heart disease without heart failure Presentation: 03/26 12:40 Chief complaint: Patient states: Patient reports abdominal pain that started last week jg9 that has worsened, patient seen in ed recently for same complaint, reports that this happens when he eats red meat but he has not had any, reports of n/v/d since last night. Patient also report he has a a/v shunt and is having headache of the left side near mastoid, hx of ear infection x3 years per patient, pain 10/10 in abdomen-mid to left epigastric region. Coronavirus screen: Vaccine status: Patient reports receiving the 2nd dose of the covid vaccine. Ebola Screen: Patient negative for fever greater than or equal to 101.5 degrees Fahrenheit, and additional compatible Ebola Virus Disease symptoms Patient denies exposure to infectious person. Patient denies travel to an Ebola-affected area in the 21 days before illness onset. Initial Sepsis Screen: Does the patient meet any 2 criteria? No. Patient's initial sepsis screen is negative. Does the patient have a suspected source of infection? No. Patient's initial sepsis screen is negative. Risk Assessment: Do you want to hurt yourself or someone else? Patient reports no desire to harm self or others. Onset of symptoms is unknown. 12:40 Method Of Arrival: EMS: [facility] jg9 12:40 Acuity: SARITHA 3 jg9 Triage Assessment: 12:40 General: Appears distressed, uncomfortable, Behavior is agitated, anxious. Pain: jg9 Complains of pain in left ear, left yarsani, left frontal area, left side of the back of head, left temporal area, left occipital area, left base of the skull, epigastric area and left upper quadrant Pain currently is 10 out of 10 on a pain scale. EENT: No deficits noted. Neuro: Reports headache in left parietal area. Cardiovascular: No deficits noted. Respiratory: No deficits noted. GI: Reports upper abdominal pain, diarrhea, nausea, vomiting. : No deficits noted. Derm: No deficits noted. Historical: - Allergies: 12:51 No Known Allergies; jg9 - PMHx: 12:51 Hypertensive disorder; jg9 - PSHx: 12:51 Appendectomy; carpal tunnel right; hernia; Nerve transplantion; left hand tendonitis; jg9 shunt; - Immunization history:: Adult Immunizations Client reports receiving the 2nd dose of the Covid vaccine, Pneumococcal vaccine is not up to date, Flu vaccine is not up to date. - Social history:: Smoking status: Reported history of juuling and/or vaping. Screenin:53 Abuse screen: Denies threats or abuse. Denies injuries from another. Nutritional jg9 screening: No deficits noted. Tuberculosis screening: No symptoms or risk factors identified. Fall Risk None identified. Assessment: 13:23 Reassessment: No changes from previously documented assessment. Patient and/or family jg9 updated on plan of care and expected duration. Pain level reassessed. Patient is alert, oriented x 3, equal unlabored respirations, skin warm/dry/pink. 14:00 Reassessment: No changes from previously documented assessment. Patient and/or family jg9 updated on plan of care and expected duration. Pain level reassessed. Patient is alert, oriented x 3, equal unlabored respirations, skin warm/dry/pink. Patient states symptoms have not improved. 15:05 Reassessment: Patient yelling in room stating his abdomen is cramping around where the jg9 tube is in his abdomen-provider notified. 16:00 Reassessment: No changes from previously documented assessment. Patient and/or family jg9 updated on plan of care and expected duration. Pain level reassessed. Patient is alert, oriented x 3, equal unlabored respirations, skin warm/dry/pink. Patient states symptoms have not improved. Vital Signs: 12:40 BP 211 / 106; Pulse 94; Resp 18 S; Temp 98.0(O); Pulse Ox 96% on R/A; Weight 158.76 kg jg9 (R); Height 6 ft. 3 in. (190.50 cm) (R); Pain 10/10; 13:30 BP 176 / 97; Pulse 108; Resp 20 S; Pulse Ox 97% ; Pain 10/10; jg9 13:30 BP 174 / 74; Pulse 93; Resp 15 S; Pulse Ox 99% ; Pain 9/10; jg9 14:50 BP 150 / 106; Pulse 104; Resp 20 S; Pulse Ox 95% ; Pain 10/10; jg9 15:05 BP 178 / 72; Pulse 99; Resp 15; Pulse Ox 100% ; Pain 8/10; jg9 16:30 BP 142 / 60; Pulse 82; Resp 19 S; Pulse Ox 100% on R/A; Pain 8/10; jg9 17:30 BP 140 / 65; Pulse 80; Resp 14 S; Pulse Ox 98% on R/A; Pain 6/10; jg9 12:40 Body Mass Index 43.75 (158.76 kg, 190.50 cm) jg9 ED Course: 12:47 Patient arrived in ED. vg1 12:47 Dorothy Shannon, BRYN is Primary Nurse. jg9 12:47 Talon Lakhani PA is PHCP. cp 12:47 Mathieu Orellana DO is Attending Physician. cp 12:47 Inserted saline lock: 20 gauge in right antecubital area, using aseptic technique. tp1 Blood collected. 12:47 Maintain EMS IV. Dressing intact. Good blood return noted. Site clean \T\ dry. Gauge \T\ tp 1 site: 20 G L AC. 12:51 Triage completed. jg9 12:53 Arm band placed on left wrist. jg9 12:53 Patient has correct armband on for positive identification. Bed in low position. Call jg9 light in reach. Side rails up X 1. 13:30 XRAY Chest (1 view) In Process Unspecified. EDMS 14:14 CT Head Brain wo Cont In Process Unspecified. EDMS 14:16 Abdomen In Process Unspecified. EDMS 16:03 Kelvin Marcial MD is Referral Physician. cp 17:42 No provider procedures requiring assistance completed. jg9 17:43 IV discontinued. jg9 Administered Medications: 13:20 Drug: Zofran (Ondansetron) 4 mg Route: IVP; Site: left antecubital; jg9 14:00 Follow up: Response: No adverse reaction; Nausea is decreased jg9 13:20 Drug: morphine 4 mg Route: IVP; Infused Over: 4 mins; Site: left antecubital; jg9 14:00 Follow up: Response: No adverse reaction; Pain is unchanged, physician notified jg9 13:22 Drug: NS 0.9% 1000 ml Route: IV; Rate: 1000 ml/hr; Site: left antecubital; jg9 16:10 Follow up: IV Status: Completed infusion; IV Intake: 1000ml jg9 13:23 Drug: ProTONIX (pantoprazole) 40 mg Route: IVP; Site: left antecubital; jg9 14:00 Follow up: Response: No adverse reaction jg9 13:33 Drug: hydrALAZINE 10 mg Route: IVP; Site: left antecubital; jg9 14:50 Follow up: BP 150 / 106; Pulse 104 bpm; Resp 20 bpm Spontaneous; Pulse Ox 95% ; Pain jg9 1010 Adult 14:25 Drug: Benadryl (diphenhydrAMINE) 25 mg Route: IVP; Site: left antecubital; jg9 15:03 Follow up: Response: No adverse reaction jg9 14:26 Drug: Dilaudid (HYDROmorphone) 1 mg Route: IVP; Site: left antecubital; jg9 15:02 Follow up: Response: No adverse reaction; Pain is unchanged, physician notified jg9 15:10 CANCELLED (Physician Discretion): Ativan (LORazepam) 1 mg IVP once cp 15:25 Drug: Valium (diazepam) 5 mg Route: IVP; Site: left antecubital; jg9 16:20 Follow up: Response: No adverse reaction; Anxiety decreased jg9 16:15 Drug: NS 0.9% 1000 ml Route: IV; Rate: 1 bolus; Site: left antecubital; jg9 17:45 Follow up: IV Status: Completed infusion; IV Intake: 1000ml jg9 16:25 Drug: Lisinopril 20 mg Route: PO; jg9 16:51 Follow up: Response: No adverse reaction jg9 16:25 Drug: GI Cocktail without - (Maalox Suspension 30 ml, Lidocaine Liquid 2 % 15 jg9 ml) Route: PO; 16:51 Follow up: Response: No adverse reaction; No change in condition jg9 16:53 Drug: Dilaudid (HYDROmorphone) 1 mg Route: IVP; Site: left antecubital; jg9 17:30 Follow up: Response: No adverse reaction; Pain is decreased jg9 16:53 Drug: Zofran (Ondansetron) 4 mg Route: IVP; Site: left antecubital; jg9 17:20 Follow up: Response: No adverse reaction jg9 Medication: 17:43 VIS not applicable for this client. jg9 Intake: 16:10 IV: 1000ml; Total: 1000ml. jg9 17:45 IV: 1000ml; Total: 2000ml. jg9 Outcome: 16:06 Discharge ordered by MD. cp 17:42 Discharged to home ambulatory. jg9 17:42 Condition: improved 17:42 Discharge instructions given to patient, Instructed on discharge instructions, follow up and referral plans. Demonstrated understanding of instructions, follow-up care, Prescriptions given X 6 17:46 Patient left the ED. jg9 Signatures: Dispatcher [employer] EDMS Talon Lakhani PA PA cp Garcia, Victoria RN RN vg1 Jennifer Mejia RN RN tp1 Dorothy Shannon RN RN jg9 Corrections: (The following items were deleted from the chart) 15:03 15:02 Response: No adverse reaction; Pain is unchanged, physician notified jg9 jg9 16:55 13:30 BP 176 / 97; Pulse 108bpm; Resp 20bpm; Spontaneous; Pulse Ox 97%; jg9 jg9 16:55 15:05 BP 178 / 72; Pulse 99bpm; Resp 15bpm; Pulse Ox 100%; Pain 9/10; jg9 jg9 17:44 17:42 Discharge instructions given to patient, Instructed on discharge instructions, jg9 follow up and referral plans. Demonstrated understanding of instructions, follow-up care, Prescriptions given X 5 jg9
--- NOTE | 2022-03-26 16:07 | EDPHYS ---
Physician Documentation [facility] Name: Terry Akins Sr Age: 41 yrs Sex: Male : 1980 Arrival Date: 03/26/2022 Time: 12:47 Bed 16 Private MD: ED Physician Mathieu Orellana HPI: 03/26 12:55 This 41 yrs old Black Male presents to ER via EMS with complaints of Abdominal Pain, cp Nausea/Vomiting. 12:55 The patient presents with abdominal pain in the epigastric area. cp 12:55 Onset: The symptoms/episode began/occurred 1 week(s) ago. Associated signs and cp symptoms: Pertinent positives: nausea and vomiting, headache, Pertinent negatives: blood in stools, chest pain, constipation, diarrhea, fever, vomiting blood. 12:55 The symptoms are described as constant. Severity of pain: in the emergency department cp the pain is unchanged despite home interventions. Historical: - Allergies: 12:51 No Known Allergies; jg9 - PMHx: 12:51 Hypertensive disorder; jg9 - PSHx: 12:51 Appendectomy; carpal tunnel right; hernia; Nerve transplantion; left hand tendonitis; jg9 shunt; - Immunization history:: Adult Immunizations Client reports receiving the 2nd dose of the Covid vaccine, Pneumococcal vaccine is not up to date, Flu vaccine is not up to date. - Social history:: Smoking status: Reported history of juuling and/or vaping. ROS: 13:00 Constitutional: Negative for body aches, chills, fever. cp 13:00 Eyes: Negative for injury, pain, redness, and discharge. cp 13:00 ENT: Negative for drainage from ear(s), ear pain, sore throat, difficulty swallowing, difficulty handling secretions. 13:00 Cardiovascular: Negative for chest pain, edema, palpitations. 13:00 Respiratory: Negative for cough, shortness of breath, wheezing. 13:00 Abdomen/GI: Positive for abdominal pain, nausea and vomiting, Negative for diarrhea, constipation, hematemesis, black/tarry stool, rectal bleeding. 13:00 : Negative for urinary symptoms, testicular pain 13:00 Skin: Negative for cellulitis, rash. 13:00 Neuro: Positive for headache, Negative for altered mental status, dizziness, numbness, tingling, weakness. 13:00 All other systems are negative. Exam: 13:05 Constitutional: The patient appears in no acute distress, alert, awake, cp non-diaphoretic, non-toxic, well developed, well nourished, obese, in obvious pain, uncomfortable. 13:05 Head/Face: Normocephalic, atraumatic. cp 13:05 Eyes: Periorbital structures: appear normal, Pupils: equal, round, and reactive to light and accomodation, Extraocular movements: intact throughout, Conjunctiva: normal, no exudate, no injection, Sclera: no appreciated abnormality, Lids and lashes: appear normal, bilaterally. 13:05 ENT: External ear(s): are unremarkable, Nose: is normal, Mouth: Lips: moist, Oral mucosa: pink and intact, moist, Posterior pharynx: Airway: no evidence of obstruction, patent. 13:05 Neck: ROM/movement: is normal, is supple, without pain, no range of motions limitations, no meningismus. 13:05 Chest/axilla: Inspection: normal, Palpation: is normal, no crepitus, no tenderness. 13:05 Cardiovascular: Rate: normal, Rhythm: regular, Edema: is not appreciated, JVD: is not appreciated. 13:05 Respiratory: the patient does not display signs of respiratory distress, Respirations: normal, no use of accessory muscles, no retractions, labored breathing, is not present, Breath sounds: are clear throughout, no decreased breath sounds, no stridor, no wheezing. 13:05 Abdomen/GI: Inspection: obese scar(s), are noted in the right upper quadrant and right lower quadrant, Bowel sounds: active, all quadrants, Palpation: soft, in all quadrants, severe abdominal tenderness, in the epigastric area, rebound tenderness, is not appreciated, voluntary guarding, is elicited in the epigastric area. 13:05 Back: CVA tenderness, is absent. 13:05 Neuro: Orientation: to person, place \T\ time. Mentation: is normal, Motor: moves all fours, strength is normal, Sensation: is normal. 13:17 ECG was reviewed by the Attending Physician. cp Vital Signs: 12:40 BP 211 / 106; Pulse 94; Resp 18 S; Temp 98.0(O); Pulse Ox 96% on R/A; Weight 158.76 kg jg9 (R); Height 6 ft. 3 in. (190.50 cm) (R); Pain 10/10; 13:30 BP 176 / 97; Pulse 108; Resp 20 S; Pulse Ox 97% ; Pain 10/10; jg9 13:30 BP 174 / 74; Pulse 93; Resp 15 S; Pulse Ox 99% ; Pain 9/10; jg9 14:50 BP 150 / 106; Pulse 104; Resp 20 S; Pulse Ox 95% ; Pain 10/10; jg9 15:05 BP 178 / 72; Pulse 99; Resp 15; Pulse Ox 100% ; Pain 8/10; jg9 16:30 BP 142 / 60; Pulse 82; Resp 19 S; Pulse Ox 100% on R/A; Pain 8/10; jg9 17:30 BP 140 / 65; Pulse 80; Resp 14 S; Pulse Ox 98% on R/A; Pain 6/10; jg9 12:40 Body Mass Index 43.75 (158.76 kg, 190.50 cm) 9 MDM: 12:50 Patient medically screened. 16:05 Data reviewed: vital signs, nurses notes, lab test result(s), EKG, radiologic studies, cp CT scan, plain films. 16:05 Differential diagnosis: bowel obstruction, cholecystitis, Cholelithiasis, cp diverticulitis, non-specific abd pain, pancreatitis, Pyelonephritis, Testicular Torsion, Ureterolithiasis, urinary tract infection. Test interpretation: by ED physician or midlevel provider: ECG, plain radiologic studies. 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 Response to treatment: Pain and nausea improved, vomiting resolved. Discussed results of labs, EKG and radiology studies. Will discharge to home for continued monitoring. 03/26 12:49 Order name: Basic Metabolic Panel; Complete Time: 14:05 cp 03/26 14:05 Interpretation: Normal except: GLUC 138; BUN 19; CRE 1.56; GFR 57. / 12:49 Order name: CBC with Diff; Complete Time: 13:22 cp 03/26 13:22 Interpretation: Normal except: WBC 9.30; RBC 5.72; SKIP% 77.1. cp / 12:49 Order name: LFT's; Complete Time: 14:05 03/26 14:06 Interpretation: Normal except: ALK 136; GLOB 4.0; A/G 1.0. cp / 12:49 Order name: Magnesium; Complete Time: 14:05 cp 03/26 12:49 Order name: NT PRO-BNP; Complete Time: 14:05 03/26 12:49 Order name: PT-INR; Complete Time: 13:22 03/26 12:49 Order name: Troponin HS; Complete Time: 14:05 03/26 12:49 Order name: XRAY Chest (1 view); Complete Time: 14:44 03/26 14:44 Interpretation: Report review. 03/26 12:49 Order name: CT Head Brain wo Cont; Complete Time: 14:44 cp 03/26 14:45 Interpretation: Report reviewed. 03/26 12:49 Order name: UDS; Complete Time: 15:56 cp 03/26 15:57 Interpretation: Normal except: THC POSITIVE; OPI POSITIVE. 03/26 12:49 Order name: Urine Microscopic Only; Complete Time: 15:56 cp 03/26 15:56 Interpretation: Reviewed. 03/26 12:50 Order name: Lipase; Complete Time: 14:05 03/26 14:06 Interpretation: LIP 104; Reviewed. 03/26 15:28 Order name: Urine Dipstick-Ancillary; Complete Time: 15:46 EDMS 03/26 15:46 Interpretation: Normal except: UPROT 1+. cp 03/26 12:49 Order name: EKG; Complete Time: 12:54 cp 03/26 14:13 Order name: Abdomen ; Complete Time: 14:48 EDMS 03/26 14:48 Interpretation: Report reviewed. 03/26 12:49 Order name: Cardiac monitoring; Complete Time: 12:54 cp 03/26 12:49 Order name: EKG - Nurse/Tech; Complete Time: 13:22 cp 03/26 12:49 Order name: IV Saline Lock; Complete Time: 13:22 cp 03/26 12:49 Order name: Labs collected and sent; Complete Time: 13:22 cp 03/26 12:49 Order name: O2 Sat Monitoring; Complete Time: 12:54 cp 03/26 12:49 Order name: Urine Dipstick-Ancillary (obtain specimen); Complete Time: 16:19 cp 03/26 15:12 Order name: PO challenge; Complete Time: 16:27 cp EC:17 Rate is 86 beats/min. Rhythm is regular. SC interval is prolonged at 200 msec. QRS cp interval is normal. QT interval is normal. T waves are Inverted in leads aVL, aVR. Interpreted by me. Reviewed by me. Administered Medications: 13:20 Drug: Zofran (Ondansetron) 4 mg Route: IVP; Site: left antecubital; jg9 14:00 Follow up: Response: No adverse reaction; Nausea is decreased j9 13:20 Drug: morphine 4 mg Route: IVP; Infused Over: 4 mins; Site: left antecubital; jg9 14:00 Follow up: Response: No adverse reaction; Pain is unchanged, physician notified jg9 13:22 Drug: NS 0.9% 1000 ml Route: IV; Rate: 1000 ml/hr; Site: left antecubital; jg9 16:10 Follow up: IV Status: Completed infusion; IV Intake: 1000ml jg9 13:23 Drug: ProTONIX (pantoprazole) 40 mg Route: IVP; Site: left antecubital; jg9 14:00 Follow up: Response: No adverse reaction jg9 13:33 Drug: hydrALAZINE 10 mg Route: IVP; Site: left antecubital; jg9 14:50 Follow up: BP 150 / 106; Pulse 104 bpm; Resp 20 bpm Spontaneous; Pulse Ox 95% ; Pain jg9 1010 Adult 14:25 Drug: Benadryl (diphenhydrAMINE) 25 mg Route: IVP; Site: left antecubital; jg9 15:03 Follow up: Response: No adverse reaction jg9 14:26 Drug: Dilaudid (HYDROmorphone) 1 mg Route: IVP; Site: left antecubital; jg9 15:02 Follow up: Response: No adverse reaction; Pain is unchanged, physician notified jg9 15:10 CANCELLED (Physician Discretion): Ativan (LORazepam) 1 mg IVP once cp 15:25 Drug: Valium (diazepam) 5 mg Route: IVP; Site: left antecubital; jg9 16:20 Follow up: Response: No adverse reaction; Anxiety decreased jg9 16:15 Drug: NS 0.9% 1000 ml Route: IV; Rate: 1 bolus; Site: left antecubital; jg9 17:45 Follow up: IV Status: Completed infusion; IV Intake: 1000ml jg9 16:25 Drug: Lisinopril 20 mg Route: PO; jg9 16:51 Follow up: Response: No adverse reaction jg9 16:25 Drug: GI Cocktail without - (Maalox Suspension 30 ml, Lidocaine Liquid 2 % 15 jg9 ml) Route: PO; 16:51 Follow up: Response: No adverse reaction; No change in condition jg9 16:53 Drug: Dilaudid (HYDROmorphone) 1 mg Route: IVP; Site: left antecubital; jg9 17:30 Follow up: Response: No adverse reaction; Pain is decreased jg9 16:53 Drug: Zofran (Ondansetron) 4 mg Route: IVP; Site: left antecubital; jg9 17:20 Follow up: Response: No adverse reaction jg9 Disposition: 21:57 Co-signature as Attending Physician, Mathieu Orellana DO I agree with the assessment and ms3 plan of care. Disposition Summary: 03/26/22 16:06 Discharge Ordered Location: Home cp Problem: an ongoing problem cp Symptoms: have improved cp Condition: Stable cp Diagnosis - Upper abdominal pain, unspecified cp - Nausea with vomiting, unspecified cp - Headache cp - Hypertensive heart disease without heart failure cp Followup: cp - With: Kelvin Marcial MD - When: 2 - 3 days - Reason: Recheck today's complaints Discharge Instructions: - Discharge Summary Sheet cp - Abdominal Pain, Adult cp - Gastritis, Adult cp Forms: - Medication Reconciliation Form cp - Thank You Letter cp - Antibiotic Education cp - Prescription Opioid Use cp - Work release form jg9 Prescriptions: - Lisinopril 20 mg Oral Tablet - take 1 tablet by ORAL route once daily; 20 tablet; Refills: 0, Product cp Selection Permitted - Protonix 40 mg Oral Tablet - take 1 tablet by ORAL route once daily; 30 tablet; Refills: 0, Product cp Selection Permitted - Carafate 1 gram Oral Tablet - take 2 tablets by ORAL route every 12 hours take on an empty stomach, beginning cp on waking and last dose at bedtime. dissolve tablets in 8 oz warm water prior to ingestion; 100 tablet; Refills: 0, Product Selection Permitted - promethazine 25 mg Oral Tablet - take 1 tablet by ORAL route every 6 hours As needed; 20 tablet; Refills: 0, cp Product Selection Permitted - Cyclobenzaprine 10 mg Oral Tablet - take 1 tablet by ORAL route every 8 hours As needed; 20 tablet; Refills: 0, cp Product Selection Permitted - Tramadol 50 mg Oral Tablet - take 1 tablet by ORAL route every 8 hours as needed; 12 tablet; Refills: 0, cp Product Selection Permitted Signatures: Dispatcher [employer] EDMS Talon Lakhani PA PA cp Sims, Marcus, DO DO ms3 Dorothy Shannon RN RN jg9 Corrections: (The following items were deleted from the chart) 13:22 13:22 Normal except: WBC 9.30; RBC 5.72. cp cp 14:13 12:55 Abdomen Pelvis W Con+[id number].RAD.BRZ ordered. EDMS EDMS 15:10 15:02 Ativan (LORazepam) 1 mg IVP once ordered. cp cp 16:19 12:49 Oxygen Per Protocol ordered. cp jg9
[2022-03-26] MEDS ORDERED: MAGNES/ALUMIN/SIMET 30ML UCUP ONE (16:29)
[2022-03-26] MEDS ORDERED: LIDOCAINE VISCOUS 2% SOLN 15 ML UDC ONE (16:30)
[2022-03-26] MEDS ORDERED: lisinopriL 20 MG TAB ONE (16:30)
[2022-03-26 18:31] VITALS: BP 140/65; O2SAT 98
--- NOTE | 2022-03-27 08:14 | EKG ---
Test Date: 2022-03-26 Test Time: 13:12:16 Nut Feeder: [facility] MEASUREMENT RESULTS: Intervals: Rate: 86 MI: 200 QRSD: 78 QT: 310 QTc: 370 [place]: P: 66 MI: 200 QRS: 4 T: 66 INTERPRETIVE STATEMENTS: Sinus rhythm with sinus arrhythmia with occasional premature ventricular complexes Moderate voltage criteria for LVH, may be normal variant Cannot rule out Septal infarct, age undetermined Abnormal ECG Compared to ECG 10/12/2021 14:43:08 Sinus tachycardia no longer present Myocardial infarct finding still present Electronically Signed On 03-27-22 08:11:13 CDT by Agus Fisher
== END 2022-03-26 17:46 | disposition home or self-care (01) ==
LOC: ER 12:46
DX: R10.13 Epigastric pain (principal); R11.2 Nausea with vomiting, unspecified; R51.9 Headache, unspecified; I11.9 Hypertensive heart disease without heart failure
CPT/HCPCS: 96361; 93005; 85025; 80048; 36415; 83735; 85610; 80076; 84484; 83690; 83880; 80307; 70450; 74176; 71045; 96375; 96374; 99284; J0360; J1200; C9113; J3360; J1170 ×2; J7030 ×2; J2405 ×2; 81003; 81015

== ENCOUNTER 2022-04-04 09:32 | Emergency (ER) | payer OTHER ==
--- OUTSIDE RECORDS SUMMARY | 2022-04-04 09:35 | XMS REPORT | Continuity of Care Document ---
:1980 Author Organization [facility] t Address [address] [place] [address] Care Team Providers Name Role Phone Asked, [...] Tobacco use and 2018-05-25 2018-05-25 Never used [employer] exposure 00:00:00 00:00:00 Hospital Alcohol intake 2018-05-25 2018-05-25 Current [employer] Catholic 00:00:00 00:00:00 non-drinker of Hospital alcohol (finding) History of 2018-04-25 Cigarette Smoker Methodis t tobacco use 00:00:00 Hospital Sex Assigned At [birth year] [employer] 00:00:00 00:00:00 Hospital Smoking Status Start Date Stop Date Source Former smoker 2018-05-25 00:00[facility]00 [facility] F[facility] Start Stop Current Ordering Indication Dosage Frequency Signature Comments Components Source Medication Medication Date Date Medication? Clinician (SIG) Name Name Marysol Gregg 2019-0 2020- No Norah 1 tablet Common e HCl e HCl 4-28 05-03 [place] as needed Spirit 00:00: 00:00 for n/v - [facility] 00 :00 [facility] SUMAtriptan SUMAtriptan Yes POURAN inject [...] 00:00: M.D. DAILY. ans Tablet Tablet 00 Hydrocodone Hydrocodone Yes Norah 1 tablet Common -Acetaminop -Acetaminop [place] as needed [facility] hen hen [facility] Adderall XR Adderall XR Yes Norah 1 capsule Common [place] in the [facility] Omeprazole Omeprazole Yes Norah 1 capsule Common [place] 30 minutes [facility] before [facility] Dicyclomine Dicyclomine Yes Norah 1 tablet Common HCl HCl [place] [facility] No known No [facility] Zofran Zofran Yes Norah 1 tablet Commo n [place] as needed [facility] Losartan Losartan Yes Norah 1 tablet C ommon Potassium-H Potassium-H [place] [facility] CTZ CTZ - [facility] Immunizations Ordered Immunization Filled Immunization Date Status [...] Systolic 2018-06-03 14:09:00 136 mm[Hg] Location: LUE; [facility] Position: Sitting BP Diastolic 2018-06-03 14:09:00 75 mm[Hg] Location: LUE; [facility] Position: Sitting Height 2018-06-03 14:09:00 75 [in_us] [facility] Weight 2018-06-03 14:09:00 317 [lb_av] [facility] Body Mass Index 2018-06-03 14:09:00 39.62 kg/m2 [facility] Calculated Temperature 2018-06-03 14:09:00 97.9 [degF] Method: Oral [facility] Heart Rate 2018-06-03 14:09:00 74 /min [facility] Procedures Procedure Date / Time Performed Performing Clinician [facility] e [U] XRAY KNEE 4 OR MORE VWS 2018-07-24 00:00:00 [facility] RIGHT [id number] Emg/Ncv 2018-06-20 00:00:00 [place] [facility] Sleep Lab - Sleep Study 2018-06-03 00:00:00 [facility] Split Night History of Cubital tunnel [...] 00:00:00 Emg/Ncv] Future Scheduled Test COVID-[address] [facility] (1) [code = COVID-19 VACCINE (1)] Future Scheduled Test Hepatitis C [facility] screening (procedure) [code = 654296843] Future Scheduled Test INFLUENZA VACCINE [facility] [code = INFLUENZA VACCINE] Encounters Start End Encounter Admission Attending Care Care Encounter Source Date/Time Date/Time Type Type Clinicians Facility Department ID 2021-10-[address] [facility] 7[address] [facility] 11:23:00 GEROINMO 2021-09-06 Outpatient George [facility] [id number] Common 12:12:10 John [id number] [facility] 2021-09-06 Outpatient Vazquez, STLMLC STLMLC [id number] Common 12:10:54 John [id number] [facility] 2021-09-06 Outpatient Vazquez, STLMLC STLMLC [id number] Common 12:09:52 John [id number] [facility] 2021-09-06 Outpatient Vazquez, STLMLC STLMLC [id number] Common 11:54:05 John [id number] [facility] 2021-09-06 Outpatient Vazquez, STLMLC STLMLC [id number] Common 11:06:57 John [id number] [facility] 2021-09-06 Outpatient Vazquez, STLMLC STLMLC [id number] Common 11:06:47 John [id number] [facility] 2021-10-08 2021-10-10 Inpatient E DAY, NOAH [facility] [address] [facility] 19:58:00 09:48:00 2021-10-03 2021-10-05 Inpatient DAY, NOAH [facility] [id number] [facility] 05:15:00 10:21:00 2021-05-11 2021-05-11 Outpatient STLMLC STLMLC [id number] Common 00:00:00 00:00:00 [facility] 2021-04-06 2021-04-06 Outpatient STLMLC STLMLC [id number] Common 00:00:00 00:00:00 [facility] 2021-04-06 2021-04-06 Outpatient STLMLC STLMLC [id number] Common 00:00:00 00:00:00 [facility] 2021-03-31 2021-03-31 Outpatient STLMLC STLMLC [id number] Common 00:00:00 00:00:00 [facility] 2020-07-20 2020-07-20 Outpatient STLMLC STLMLC [id number] Common 00:00:00 00:00:00 [facility] 2020-07-12 2020-07-12 Outpatient STLMLC STLMLC [id number] Common 00:00:00 00:00:00 [facility] 2020-05-23 2020-05-23 Outpatient STLMLC STLMLC [id number] Common 00:00:00 00:00:00 [facility] 2020-02-24 2020-02-24 [facility] [id number] Common 14:42:00 14:42:[address] [facility] 2020-02-22 2020-02-22 [facility] [id number] Common 13:51:00 13:51:[address] [facility] 2019-12-10 2019-12-10 [facility] [id number] Common 15:39:00 15:39:[address] [facility] 2019-12-08 2019-12-08 [facility] [id number] Common 13:40:00 13:40:[address] [facility] 2019-12-07 2019-12-07 [facility] [id number] Common 12:05:00 12:05:[address] [facility] 2019-11-16 2019-11-16 [facility] [id number] Common 11:00:00 11:00:00 [facility] 2019-09-29 2019-09-29 [facility] [id number] Common 09:21:00 09:21:00 [facility] 2019-09-21 2019-09-21 [facility] [id number] Common 14:00:00 14:00:00 t [facility] 2019-03-13 2019-03-13 EUNICE Diaz [id number] [facility] 09:00:00 09:00:00 t; Lesa RODRIGUEZ Ph savannah Roberto M.D. 2018-10-02 2018-10-02 [facility] [id number] [place] 15:00:00 15:00:00 t; Asher JONES i, M.D. ans POURAN, M.D. 2018-09-25 2018-09-25 [facility] [id number] [place] 10:30:00 10:30:00 t; BRANT CEJA, SHANE Health and Valery GUO, SHANE Wellness [facility] 2018-09-22 2018-09-22 [facility] [id number] [place] 15:30:00 15:30:00 t; ROBERT [facility] Lesa Cruz i, M.D. 2018-08-22 2018-08-22 [facility] [id number] [place] 09:30:00 09:30:00 t; Lesa [facility]ANT [facility] 2018-07-29 2018-07-29 [facility] [id number] [place] 14:30:00 14:30:00 t; Lesa [facility]ANT [facility] M[facility] 2018-07-25 2018-07-25 [facility]opedics [id number] [place] 10:30:00 10:30:00 t; Lesa BRITT [facility] KESHIAsavannah M.D. 2018-07-22 2018-07-22 [facility] [id number] [place] 11:15:00 11:15:00 t; Lesa BRYANT [facility] Valery MUNOZ, Orthopedics savannah BRYANT M.D. 2018-07-15 2018-07-15 [facility] [id number] [place] 10:30:00 10:30:00 t; [facility] MUN[facility]Z, Orthopedics savannah BRYANT M.D. 2018-07-09 2018-07-09 [facility] [id number] [place] 13:00:00 13:00:00 t; Lesa BRYANT savannah Rios M.D. 2018-06-30 2018-06-30 [facility] [id number] [place] 10:15:00 10:15:00 t; Lesa BRYANT [facility] Valery MUNOZ, Orthopedics savannah BRYANT M.D. 2018-06-20 2018-06-20 [facility] [id number] [place] 13:40:00 13:40:00 t; SHANE MONROE [facility] P hysici GONZALEZ, Orthopedics a boyd MONROE NP 2018-06-19 2018-06-19 [facility] [id number] [place] 08:15:00 08:15:00 t; SERJIO HUERTA D.O. Physici KERRY, ans D.O. 2018-06-17 2018-06-17 [facility] [id number] [place] 15:45:00 15:45:00 t; Lesa BRYANT [facility] Valery MUNOZ Orthopedics savannah BRYANT M.D. 2018-06-03 2018-06-03 [facility] [id number] [place] 13:45:00 13:45:00 t; SERJIO HUERTA D.O. [facility] savannah Vora D.O. Results Test Description Test Time Test Comments Results Result Sour e Comments [U] XRAY ELBOW 2 2018-06-17 [facility] VWS RIGHT [id number] 15:57:00 acquired, not reported on this accession number. [U] XRAY WRIST MIN 2018-06-17 [facility] 3 VWS RIGHT [id number] 15:57:00 acquired, not reported on this accession number.
[2022-04-04] MEDS ORDERED: METOCLOPRAMIDE 10 MG/2mL INJ ONE (10:13)
[2022-04-04] MEDS ORDERED: DIPHENHYDRAMINE 50 MG/ML VIAL ONE (10:13)
[2022-04-04] MEDS ORDERED: KETOROLAC 30 MG/ML INJ ONE (10:14)
[2022-04-04] MEDS ORDERED: NA CHLORIDE 0.9% 1,000 ML ONE (10:14)
[2022-04-04] MEDS ORDERED: MEPERIDINE HCL 50 MG/ML ONE (11:15)
[2022-04-04] MEDS ORDERED: ONDANSETRON 4 MG/2 ML VIAL ONE (11:15)
--- NOTE | 2022-04-04 11:48 | ER ---
Nurse's Notes [facility] Name: Terry Akins Sr Age: 41 yrs Sex: Male : 1980 Arrival Date: 04/04/2022 Time: 09:40 Bed 25 Private MD: Diagnosis: Headache;Tension-type headache, unspecified, not intractable Presentation: 04/04 09:45 Chief complaint: Patient states: he is experiencing a continued migraine that began ap3 yesterday. Patient states that he gets them frequently. Coronavirus screen: At this time, the client does not indicate any symptoms associated with coronavirus-19. Ebola Screen: No symptoms or risks identified at this time. Initial Sepsis Screen: Does the patient meet any 2 criteria? No. Patient's initial sepsis screen is negative. Does the patient have a suspected source of infection? No. Patient's initial sepsis screen is negative. Risk Assessment: Do you want to hurt yourself or someone else? Patient reports no desire to harm self or others. Onset of symptoms was April 03, 2022. 09:45 Method Of Arrival: Ambulatory ap3 09:45 Acuity: SARITHA 3 ap3 Triage Assessment: 09:47 Headache History: The patient has had previous headaches and this one is similar to ap3 previous episodes. General: Appears uncomfortable, Behavior is restless. Pain: Complains of pain in head Pain currently is 10 out of 10 on a pain scale. Pain began gradually, 1 day ago. Also complains of nausea. Neuro: Level of Consciousness is awake, alert, obeys commands, Oriented to person, place, time, situation, Speech is normal. Cardiovascular: Patient's skin is warm and dry. Respiratory: Airway is patent Respiratory effort is even, unlabored, Respiratory pattern is regular, symmetrical. 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 - Social history:: Smoking status: Reported history of juuling and/or vaping. Screenin:48 Abuse screen: Denies threats or abuse. Nutritional screening: No deficits noted. ap3 Tuberculosis screening: No symptoms or risk factors identified. 09:53 Fall Risk No fall in past 12 months (0 pts). No secondary diagnosis (0 pts). IV access vg1 (20 points). Ambulatory Aid- None/Bed Rest/Nurse Assist (0 pts). Gait- Normal/Bed Rest/Wheelchair (0 pts) Mental Status- Oriented to own ability (0 pts). Total Moss Fall Scale indicates No Risk (0-24 pts). Assessment: 09:53 General: Appears in no apparent distress. uncomfortable, Behavior is cooperative. Pain: vg1 Complains of pain in head Pain currently is 10 out of 10 on a pain scale. Pain began 1 day ago. Noted to be grimacing, moaning. Neuro: Level of Consciousness is awake, alert, obeys commands, Oriented to person, place, time, situation, Reports dizziness, headache photophobia Denies weakness blurred vision. Cardiovascular: Patient's skin is warm and dry. Respiratory: Airway is patent Respiratory effort is even, unlabored. GI: Abdomen is round non-distended, obese, Reports nausea. : No signs and/or symptoms were reported regarding the genitourinary system. EENT: No signs and/or symptoms were reported regarding the EENT system. Derm: Skin is pink, warm \T\ dry. Musculoskeletal: Circulation, motion, and sensation intact. 11:00 Reassessment: Patient appears in no apparent distress at this time. No changes from vg1 previously documented assessment. Patient and/or family updated on plan of care and expected duration. Pain level reassessed. Patient is alert, oriented x 3, equal unlabored respirations, skin warm/dry/pink. 12:28 Reassessment: Patient appears in no apparent distress at this time. Patient and/or vg1 family updated on plan of care and expected duration. Pain level reassessed. Patient is alert, oriented x 3, equal unlabored respirations, skin warm/dry/pink. Patient states feeling better. Vital Signs: 09:45 BP 166 / 116; Pulse 71; Resp 18; Temp 98.3; Pulse Ox 99% ; Weight 145.15 kg; Height 6 ap3 ft. 3 in. (190.50 cm); Pain 10/10; 09:59 BP 166 / 98; vg1 11:16 BP 164 / 90; Pulse 70; Resp 16; Pulse Ox 97% on R/A; vg1 12:28 BP 146 / 81; Pulse 67; Resp 16; Pulse Ox 98% on R/A; vg1 09:45 Body Mass Index 40.00 (145.15 kg, 190.50 cm) ap3 ED Course: 09:40 Patient arrived in ED. am2 09:46 Triage completed. ap3 09:48 Arm band placed on right wrist. ap3 09:50 Stephane Rizvi MD is Attending Physician. kdr 09:51 Tiffany Sánchez RN is Primary Nurse. vg1 09:53 Patient has correct armband on for positive identification. Bed in low position. Call vg1 light in reach. Side rails up X 1. 10:13 Inserted saline lock: 20 gauge in left antecubital area, using aseptic technique. vg1 11:47 Dirk Patel MD is Referral Physician. kdr 12:28 No provider procedures requiring assistance completed. IV discontinued, intact, vg1 bleeding controlled, No redness/swelling at site. Pressure dressing applied. Administered Medications: 10:15 Drug: Ketorolac 30 mg Route: IVP; Site: left antecubital; vg1 11:15 Follow up: Response: No adverse reaction; No change in condition vg1 10:17 Drug: Benadryl (diphenhydrAMINE) 50 mg Route: IVP; Site: left antecubital; vg1 11:16 Follow up: Response: No adverse reaction vg1 10:20 Drug: Reglan (metoCLOPramide) 10 mg Route: IVP; Site: left antecubital; vg1 11:16 Follow up: Response: No adverse reaction; No change in condition vg1 10:20 Drug: NS 0.9% 1000 ml Route: IV; Rate: 1 bolus; Site: left antecubital; vg1 12:29 Follow up: IV Status: Completed infusion; IV Intake: 1000ml vg1 11:08 Drug: Zofran (Ondansetron) 4 mg Route: IVP; Site: left antecubital; vg1 12:29 Follow up: Response: No adverse reaction; Marked relief of symptoms vg1 11:10 Drug: Demerol (meperidine) 50 mg Route: IVP; Site: left antecubital; vg1 12:29 Follow up: Response: No adverse reaction; Marked relief of symptoms vg1 Medication: 09:53 VIS not applicable for this client. vg1 Intake: 12:29 IV: 1000ml; Total: 1000ml. vg1 Outcome: 11:48 Discharge ordered by . kdr 12:28 Discharged to home ambulatory. vg1 12:28 Condition: good 12:28 Discharge instructions given to patient, Instructed on discharge instructions, follow up and referral plans. Demonstrated understanding of instructions, follow-up care. 12:29 Patient left the ED. vg1 Signatures: Stephane Rizvi MD MD kdr Lisa Edmonds Amanda, RN RN ap3 Tiffany Sánchez, RN RN vg1
--- NOTE | 2022-04-04 11:49 | EDPHYS ---
Physician Documentation [facility] Name: Terry Akins Sr Age: 41 yrs Sex: Male : 1980 Arrival Date: 04/04/2022 Time: 09:40 Bed 25 Private MD: ED Physician Stephane Rizvi HPI: 04/04 10:09 This 41 yrs old Black Male presents to ER via Ambulatory with complaints of Headache,. kdr 10:09 The patient complains of pain to the forehead, left frontal area, left side of the back kdr of head, left temporal area, right frontal area, right side of the back of head and right temporal area. The patient describes the headache as aching, constant, a pressure, unrelenting. Onset: The symptoms/episode began/occurred yesterday. Associated signs and symptoms: Pertinent positives: nausea, Pertinent negatives: altered mental status, dizziness, fever, malaise, neck stiffness, paresthesias, Photophobia rash, sinus congestion, sinus tenderness, vision changes, vision loss, vomiting, weakness, vertigo. Severity of symptoms: At its worst the pain was moderate, severe, "similar to past headaches", in the emergency department the pain is unchanged. Headache History: Other The patient states there is nothing new about this headache. Occasionally when he has headaches, they are constant and focal and localized without movement. On the other hand there are other times when he has headaches move around more around his head. This instance is the latter. The symptoms are alleviated by nothing. the symptoms are aggravated by lights, movement, noise. The patient has experienced similar episodes in the past, multiple times. The patient has been recently seen by a physician: The patient has been recently seen at the [facility] Emergency Department, a couple of weeks ago. 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 - Social history:: Smoking status: Reported history of juuling and/or vaping. ROS: 10:09 Constitutional: Negative for fever, chills, and weight loss, Eyes: Negative for injury, kdr pain, redness, and discharge, ENT: Negative for injury, pain, and discharge, Neck: Negative for injury, pain, and swelling, Cardiovascular: Negative for chest pain, palpitations, and edema, Respiratory: Negative for shortness of breath, cough, wheezing, and pleuritic chest pain, Abdomen/GI: Negative for abdominal pain, nausea, vomiting, diarrhea, and constipation, Back: Negative for injury and pain, : Negative for injury, bleeding, discharge, and swelling, MS/Extremity: Negative for injury and deformity, Skin: Negative for injury, rash, and discoloration, Psych: Negative for depression, anxiety, suicide ideation, homicidal ideation, and hallucinations, Allergy/Immunology: Negative for hives, rash, and allergies, Endocrine: Negative for neck swelling, polydipsia, polyuria, polyphagia, and marked weight changes, Hematologic/Lymphatic: Negative for swollen nodes, abnormal bleeding, and unusual bruising. 10:09 Neuro: Positive for headache, Negative for altered mental status, dizziness, numbness, seizure activity, speech changes, syncope, near syncope, tinnitus, tremor, visual changes, weakness. Exam: 10:09 Constitutional: This is a well developed, well nourished patient who is awake, alert, kdr and in mild distress. Head/Face: Normocephalic, atraumatic. Eyes: Pupils equal round and reactive to light, extra-ocular motions intact. Lids and lashes normal. Conjunctiva and sclera are non-icteric and not injected. Cornea within normal limits. Periorbital areas with no swelling, redness, or edema. Neck: Trachea midline, no thyromegaly or masses palpated, and no cervical lymphadenopathy. Supple, full range of motion without nuchal rigidity, or vertebral point tenderness. No Meningismus. Chest/axilla: Normal chest wall appearance and motion. Nontender with no deformity. No lesions are appreciated. Cardiovascular: Regular rate and rhythm with a normal S1 and S2. No gallops, murmurs, or rubs. Normal PMI, no JVD. No pulse deficits. Respiratory: Lungs have equal breath sounds bilaterally, clear to auscultation and percussion. No rales, rhonchi or wheezes noted. No increased work of breathing, no retractions or nasal flaring. Abdomen/GI: Soft, non-tender, with normal bowel sounds. No distension or tympany. No guarding or rebound. No evidence of tenderness throughout. Back: No spinal tenderness. No costovertebral tenderness. Full range of motion. Skin: Warm, dry with normal turgor. Normal color with no rashes, no lesions, and no evidence of cellulitis. 10:09 Neck: ROM/movement: no acute changes, Meningeal signs: are not present, nuchal rigidity, is not appreciated. Vital Signs: 09:45 BP 166 / 116; Pulse 71; Resp 18; Temp 98.3; Pulse Ox 99% ; Weight 145.15 kg; Height 6 ap3 ft. 3 in. (190.50 cm); Pain 1010; 09:59 BP 166 / 98; vg1 11:16 BP 164 / 90; Pulse 70; Resp 16; Pulse Ox 97% on R/A; vg1 12:28 BP 146 / 81; Pulse 67; Resp 16; Pulse Ox 98% on R/A; vg1 09:45 Body Mass Index 40.00 (145.15 kg, 190.50 cm) ap3 MDM: 10:09 Data reviewed: vital signs, nurses notes, old medical records. Counseling: I had a kdr detailed discussion with the patient and/or guardian regarding: the historical points, exam findings, and any diagnostic results supporting the discharge/admit diagnosis, lab results, radiology results, the need for outpatient follow up. 11:48 Patient medically screened. kdr Administered Medications: 10:15 Drug: Ketorolac 30 mg Route: IVP; Site: left antecubital; vg1 11:15 Follow up: Response: No adverse reaction; No change in condition vg1 10:17 Drug: Benadryl (diphenhydrAMINE) 50 mg Route: IVP; Site: left antecubital; vg1 11:16 Follow up: Response: No adverse reaction vg1 10:20 Drug: Reglan (metoCLOPramide) 10 mg Route: IVP; Site: left antecubital; vg1 11:16 Follow up: Response: No adverse reaction; No change in condition vg1 10:20 Drug: NS 0.9% 1000 ml Route: IV; Rate: 1 bolus; Site: left antecubital; vg1 12:29 Follow up: IV Status: Completed infusion; IV Intake: 1000ml vg1 11:08 Drug: Zofran (Ondansetron) 4 mg Route: IVP; Site: left antecubital; vg1 12:29 Follow up: Response: No adverse reaction; Marked relief of symptoms vg1 11:10 Drug: Demerol (meperidine) 50 mg Route: IVP; Site: left antecubital; vg1 12:29 Follow up: Response: No adverse reaction; Marked relief of symptoms vg1 Disposition Summary: 04/04/22 11:48 Discharge Ordered Location: Home kdr Problem: an acute exacerbation kdr Symptoms: have improved kdr Condition: Stable kdr Diagnosis - Headache kdr - Tension-type headache, unspecified, not intractable kdr Followup: kdr - With: Private Physician - When: 2 - 3 days - Reason: If symptoms return, Further diagnostic work-up, Recheck today's complaints, Continuance of care, Re-evaluation by your physician Followup: kdr - With: Dirk Patel MD - When: 2 - 3 days - Reason: If symptoms return, Further diagnostic work-up, Recheck today's complaints, Continuance of care, Re-evaluation by your physician Discharge Instructions: - Discharge Summary Sheet kdr - Tension Headache, Adult, Knat-sn-Mesx kdr - General Headache Without Cause, Euaw-vz-Uley kdr Forms: - Medication Reconciliation Form kdr - Thank You Letter kdr Signatures: Dispatcher [employer] Stephane Bryan MD MD kdr Lisa Fuller RN RN ap3 Tiffany Sánchez RN RN vg1 Corrections: (The following items were deleted from the chart) 09:57 09:51 IV Saline Lock ordered. kdr kdr 09:58 09:51 Labs collected and sent ordered. kdr kdr 10:18 09:51 Head Brain Wo Cont+CT.RAD.BRZ ordered. EDMS EDMS
[2022-04-04 13:08] VITALS: TEMP 98.3
[2022-04-04 13:14] VITALS: BP 146/81; O2SAT 98
== END 2022-04-04 12:29 | disposition home or self-care (01) ==
LOC: ER 09:32
DX: G44.209 Tension-type headache, unspecified, not intractable (principal); I10 Essential (primary) hypertension
CPT/HCPCS: J2765; J1200; J2175; J7030; J2405

== ENCOUNTER 2022-04-22 14:06 | Emergency (ER) | payer OTHER ==
--- OUTSIDE RECORDS SUMMARY | 2022-04-22 14:10 | XMS REPORT | Continuity of Care Document ---
:1980 Author Organization [facility] t Address [address] [place] [address] Care Team Providers Name Role Phone Asked, No Pcp Primary Care Physician Unavailable GERONIMO MICHELLE Attending Clinician Unavailable John Vazquez Attending Clinician Unavailable NOAH OSORIO Attending Clinician Unavailable MICHAEL LICONA M.D. Attending Clinician Unavailable ROBERT YOUSIF M.D. Attending Clinician Unavailable BRANT CEJA NP Attending Clinician Unavailable ANNETTE MUNOZ M.D. Attending Clinician Unavailable LORENZA SCHMITT M.D. Attending Clinician Unavailable FRE ROTH NP Attending Clinician Unavailable SERJIO HUERTA [...] Start Date Stop Date Quantity Comments Source Alcohol intake 2018-05-25 2018-05-25 Current [facility] 00:00:00 00:00:00 non-drinker of Hospital alcohol (finding) Tobacco use and 2018-05-25 2018-05-25 Never used [facility]ism exposure 00:00:00 00:00:00 Hospital History of 2018-04-25 Cigarette Smoker Methodis t tobacco use 00:00:00 Hospital Sex Assigned At [birth year] [facility]aoism 00:00:00 00:00:00 Hospital Smoking Status Start Date Stop Date Source Former smoker 2018-05-25 00:00:00 2018-05-25 00:00:00 [facility] Medications Ordered Filled Start Stop Current Ordering Indication Dosage Frequency Signature Comments Components Source Medication Medication Date Date Medication? Clinician (SIG) Name Name Marysol Gregg 0 2020- No Norah 1 tablet Common e HCl e HCl 4-28 05-03 [place] as needed Spirit 00:00: 00:00 for n/v - [facility] 00 :00 [facility] SUMAtriptan SUMAtriptan Yes POURAN inject PRN [...] 00:00: M.D. DAILY. ans Tablet Tablet 00 No known 2017-08 No No known Metho di medications 0-[address] 19:40: s [facility]osp[facility] 04 l Zofran Zofran Yes Norah 1 tablet Commo n [place] as needed [facility] Losartan Losartan Yes Norah 1 tablet C ommon Potassium-H Potassium-H [place] [facility] CTZ CTZ [facility] Hydrocodone Hydrocodone Yes Norah 1 tablet Common -Acetaminop -Acetaminop [place] as needed [facility] hen hen [facility] Adderall XR Adderall XR Yes Norah 1 capsule Common [place] in the [facility] morning [facility] Omeprazole Omeprazole Yes Norah 1 capsule Common [place] 30 minutes [facility] before [facility] Dicyclomine Dicyclomine Yes Norah 1 tablet Common HCl HCl [place] [facility] No known No [facility] Immunizations Ordered Immunization Filled Immunization Date Status Commen ts Source Name Name Taryn Gaytanivalent 2018-06-03 Completed [facility] 0.5 ML [...] BP Systolic 2018-06-03 14:09:00 136 mm[Hg] Location: [place]; [facility] Position: Sitting BP Diastolic 2018-06-03 14:09:00 75 mm[Hg] Location: [place]; [facility] Position: Sitting Height 2018-06-03 14:09:00 75 [in_us] [facility] Weight 2018-06-03 14:09:00 317 [lb_av] [facility] Body Mass Index 2018-06-03 14:09:00 39.62 kg/m2 [facility] Calculated Temperature 2018-06-03 14:09:00 97.9 [degF] Method: Oral [facility] Heart Rate 2018-06-03 14:09:00 74 /min [facility] Procedures Procedure Date / Time Performed Performing Clinician Sour e [U] XRAY KNEE 4 OR MORE VWS 2018-07-24 00:00:00 [facility] RIGHT [id number] Emg/Ncv 2018-06-20 00:00:00 [facility] Sleep Lab - Sleep Study 2018-06-03 00:00:00 [facility] Split Night History of Cubital tunnel [facility] repair History of Appendectomy [facility] History of Wrist surgery [facility] History of Hemorrhoidectomy [facility] Plan of Care Planned Activity Planned Date Details Comments Source Future Scheduled Test 2022-04-13 HEPATITIS B Method [facility] 21:38:54 VACCINES (1 of 3 - 3-dose series) [code = HEPATITIS B VACCINES (1 of 3 - 3-dose series)] Future Scheduled Test 2022-04-13 COVID-19 VACCINE [facility] 21:38:54 (#1) [code = COVID-19 VACCINE (#1)] Future Scheduled Test 2022-04-13 INFLUENZA VACCINE [facility] 21:38:54 [code = INFLUENZA VACCINE] Diagnostic Test 2018-06-20 Emg/Ncv [code = [facility] Pending 00:00:00 Emg/Ncv] Diagnostic Test 2018-06-20 Emg/Ncv [code = [facility] Pending 00:00:00 Emg/Ncv] Future Scheduled Test COVID-19 VACCINE [facility] (1) [code = COVID-19 VACCINE (1)] Future Scheduled Test Hepatitis C Method [facility] screening (procedure) [code = 760058193] Future Scheduled Test INFLUENZA VACCINE [facility] [code = INFLUENZA VACCINE] Encounters Start End Encounter Admission Attending Care Care Encounter Source Date/Time Date/Time Type Type Clinicians Facility Department ID 2021-10-25 Outpatient MIGUEL ANGEL, [facility] [id number] [facility] 11:23:00 GERONIMO 2021-09-06 Outpatient Vazquez, STLMLC STLC [id number] Common 12:12:10 John [id number] [facility] 2021-09-06 Outpatient Vazquez, STLMLC STLC [id number] Common 12:10:54 John 95514 [facility] 2021-09-06 Outpatient Vazquez, STLMLC STLC [id number] Common 12:09:52 John [id number] [facility] 2021-09-06 Outpatient Vazquez, STLMLC STLC [id number] Common 11:54:05 John [id number] [facility] 2021-09-06 Outpatient Vazquez, STLMLC STLC [id number] Common 11:06:57 John [id number] [facility] 2021-09-06 Outpatient Vazquez, STLMLC STLC [id number] Common 11:06:47 John [id number] [facility] 2021-10-08 2021-10-10 Inpatient E DAY, [facility] [address] [facility] 19:58:00 09:48:00 2021-10-03 2021-10-05 Inpatient DAY, [facility] [id number] [facility] 05:15:00 10:21:00 2021-05-11 2021-05-11 Outpatient STLMLC STLC [id number] Common 00:00:00 00:00:00 [facility] 2021-04-06 2021-04-06 Outpatient STLMLC STLC [id number] Common 00:00:00 00:00:00 [facility] 2021-04-06 2021-04-06 Outpatient STLMLC STLMLC [id number] Common 00:00:00 00:00:00 [facility] 2021-03-31 2021-03-31 Outpatient STLMLC STLMLC [id number] Common 00:00:00 00:00:00 [facility] 2020-07-20 2020-07-20 Outpatient STLMLC STLMLC [id number] Common 00:00:00 00:00:00 [facility] 2020-07-12 2020-07-12 Outpatient STLMLC STLMLC [id number] Common 00:00:00 00:00:00 [facility] 2020-05-23 2020-05-23 Outpatient STLMLC STLMLC [id number] Common 00:00:00 00:00:00 [facility] 2020-02-24 2020-02-24 [facility] [id number] Common 14:42:00 14:42:00 t Mobile Authentication Sp[address] [facility] 2020-02-22 2020-02-22 [facility] [id number] Common 13:51:00 13:51:[address] [facility] 2019-12-10 2019-12-10 [facility] [id number] Common 15:39:00 15:39:[address] [facility] 2019-12-08 2019-12-08 [facility] [id number] Common 13:40:00 13:40:[address] [facility] 2019-12-07 2019-12-07 [facility] [id number] Common 12:05:00 12:05:[address] [facility] 2019-11-16 2019-11-16 [facility] [id number] Common 11:00:00 11:00:00 [facility] 2019-09-29 2019-09-29 [facility] [id number] Common 09:21:00 09:21:00 t [facility] Sp[facility] - [facility] 2019-09-21 2019-09-21 [facility] [id number] Common 14:00:00 14:00:00 t [facility] Bone [facility] Spiri t and Joint [facility] 2019-03-13 2019-03-13 [facility] [id number] [place] 09:00:00 09:00:00 t; Lesa RODRIGUEZ Ph savannah Roberto M.D. 2018-10-02 2018-10-02 Verito YOUSIF [facility] [id number] [place] 15:00:00 15:00:00 t; Asher JONES i, M.D. ans POURAN, M.D. 2018-09-25 2018-09-25 [facility] [id number] [place] 10:30:00 10:30:00 t; BRANT CEJA NP Health and Valery GUO NP Wellness [facility] 2018-09-22 2018-09-22 Verito YOUSIF [facility] [id number] [place] 15:30:00 15:30:00 t; Asher JONES i, M.D. ans POURAN, M.D. 2018-08-22 2018-08-22 Verito MUNOZ [facility] [id number] [place] 09:30:00 09:30:00 t; Lesa BRYANT Ph savannah Rios M.D. 2018-07-29 2018-07-29 Verito MUNOZ [facility] [id number] [place] 14:30:00 14:30:00 t; Lesa BRYANT Ph savannah Rios M.D. 2018-07-25 2018-07-25 [facility]u [facility] [id number] [place] 10:30:00 10:30:00 t; Lesa BRITT [facility] KESHIAsavannah M.D. 2018-07-22 2018-07-22 [facility] TAMMY, [facility] [id number] [place] 11:15:00 11:15:00 t; Lesa BRYANT [facility] Physici TAMMY, Orthopedics savannah BRYANT M.D. 2018-07-15 2018-07-15 [facility] [id number] [place] 10:30:00 10:30:00 t; Lesa BRYANT [facility] Carlitosi TAMMY, Orthopedics savannah BRYANT M.D. 2018-07-09 2018-07-09 [facility] [id number] [place] 13:00:00 13:00:00 t; Lesa BRYANT [facility] savannah MUNOZ M.D. 2018-06-30 2018-06-30 [facility] [id number] [place] 10:15:00 10:15:00 t; Lesa BRYANT [facility] Valery MUNOZ, Orthopedics savannah BRYANT M.D. 2018-06-20 2018-06-20 [facility] [id number] [place] 13:40:00 13:40:00 t; [facility] ROTH, Orthopedics a boyd MONROE NP 2018-06-19 2018-06-19 [facility] [id number] [place] 08:15:00 08:15:00 t; SERJIO HUERTA D.O. Physici KERRY, ans D.O. 2018-06-17 2018-06-17 [facility] [id number] [place] 15:45:00 15:45:00 t; Lesa BRYANT [facility] Valery MUNOZ, Orthopedics savannah BRYANT M.D. 2018-06-03 2018-06-03 [facility] [id number] [place] 13:45:00 13:45:00 t; SERJIO HUERTA D.O. [facility] savannah Vora D.O. Results Test Description Test Time Test Comments Results Result [facility] e Comments [U] XRAY ELBOW 2 2018-06-17 [facility] VWS RIGHT [id number] 15:57:00 acquired, not reported on this accession number. [U] XRAY WRIST MIN 2018-06-17 [facility] 3 VWS RIGHT [id number] 15:57:00 acquired, not reported on this accession number.
[2022-04-22] MEDS ORDERED: KETOROLAC 30 MG/ML INJ ONE (15:06)
[2022-04-22] MEDS ORDERED: DIPHENHYDRAMINE 50 MG/ML VIAL ONE (15:06)
[2022-04-22] MEDS ORDERED: HYDROMORPHONE HCL 0.5 MG/0.5 ML INJ ONE (15:06)
[2022-04-22] MEDS ORDERED: METOCLOPRAMIDE 10 MG/2mL INJ ONE (15:06)
[2022-04-22] MEDS ORDERED: NA CHLORIDE 0.9% 1,000 ML ONE (15:07)
--- NOTE | 2022-04-22 15:50 | EDPHYS ---
[facility] Name: Terry Akins Sr Age: 41 yrs Sex: Male : 1980 Arrival Date: 04/22/2022 Time: 14:15 Bed 12 Private MD: NIKOLAS Physician Talon Whitt HPI: 04/22 14:53 This 41 yrs old Black Male presents to ER via Ambulatory with complaints of migraine jl9 headache. Patient reports that he gets migraines often and sees a specialist but he just needs his pain resolved today. . 14:53 Onset: The symptoms/episode began/occurred this morning. Modifying factors: The jl9 symptoms are alleviated by nothing, the symptoms are aggravated by loud noise. Associated signs and symptoms: Pertinent positives: nausea. Severity of symptoms: Pain is currently a 10 / 10. The patient has experienced similar episodes in the past. Historical: - Allergies: 14:32 No Known Allergies; ss - PMHx: 14:32 Hypertensive disorder; Migraine; ss - PSHx: 14:32 Appendectomy; carpal tunnel right; hernia; left hand tendonitis; Nerve transplantion; ss shunt; - Immunization history:: Client reports receiving the 2nd dose of the Covid vaccine. - Social history:: Smoking status: Reported history of juuling and/or vaping. ROS: 14:54 Constitutional: Negative for fever, chills, and weight loss, Eyes: Negative for injury, jl9 pain, redness, and discharge, ENT: Negative for injury, pain, and discharge, Neck: Negative for injury, pain, and swelling, Cardiovascular: Negative for chest pain, palpitations, and edema, Respiratory: Negative for shortness of breath, cough, wheezing, and pleuritic chest pain, Abdomen/GI: Negative for abdominal pain, nausea, vomiting, diarrhea, and constipation, Back: Negative for injury and pain, MS/Extremity: Negative for injury and deformity, Skin: Negative for injury, rash, and discoloration. 14:54 Psych: Negative for depression, anxiety, suicide ideation, homicidal ideation, and hallucinations, Allergy/Immunology: Negative for hives, rash, and allergies, Endocrine: Negative for neck swelling, polydipsia, polyuria, polyphagia, and marked weight changes, Hematologic/Lymphatic: Negative for swollen nodes, abnormal bleeding, and unusual bruising. 14:54 Neuro: Positive for headache. Exam: 14:55 Constitutional: This is a well developed, well nourished patient who is awake, alert, jl9 and in no acute distress. Head/Face: Normocephalic, atraumatic. Eyes: Pupils equal round and reactive to light, extra-ocular motions intact. Lids and lashes normal. Conjunctiva and sclera are non-icteric and not injected. Cornea within normal limits. Periorbital areas with no swelling, redness, or edema. ENT: Mucous membranes moist. Neck: Trachea midline, no thyromegaly or masses palpated, and no cervical lymphadenopathy. Supple, full range of motion without nuchal rigidity, or vertebral point tenderness. No Meningismus. Chest/axilla: Normal chest wall appearance and motion. Nontender with no deformity. No lesions are appreciated. Cardiovascular: Regular rate and rhythm with a normal S1 and S2. No gallops, murmurs, or rubs. Normal PMI, no JVD. No pulse deficits. Respiratory: Lungs have equal breath sounds bilaterally, clear to auscultation and percussion. No rales, rhonchi or wheezes noted. No increased work of breathing, no retractions or nasal flaring. Abdomen/GI: Soft, non-tender, with normal bowel sounds. No distension or tympany. No guarding or rebound. No evidence of tenderness throughout. Back: No spinal tenderness. No costovertebral tenderness. Full range of motion. Skin: Warm, dry with normal turgor. Normal color with no rashes, no lesions, and no evidence of cellulitis. MS/ Extremity: Pulses equal, no cyanosis. Neurovascular intact. Full, normal range of motion. 14:55 Neuro: Orientation: is normal, Mentation: is normal, Memory: is normal. Vital Signs: 14:32 Height 6 ft. 3 in. (190.50 cm); Pain 10/10; ss 14:32 Resp 16; ss 14:33 Pulse 85; Temp 98.2; Pulse Ox 100% on R/A; ss 14:34 BP 158 / 102; ss MDM: 14:37 Patient medically screened. sin 14:57 Data reviewed: vital signs, nurses notes, old medical records. jl9 15:31 Response to treatment: the patient's symptoms have resolved after treatment. jl9 15:49 Differential diagnosis: Migraine. Counseling: I had a detailed discussion with the jl9 patient and/or guardian regarding: the historical points, exam findings, and any diagnostic results supporting the discharge/admit diagnosis, the need for outpatient follow up, to return to the emergency department if symptoms worsen or persist or if there are any questions or concerns that arise at home. 04/22 14:52 Order name: IV Saline Lock; Complete Time: 15:10 jl9 Administered Medications: 15:10 Drug: NS 0.9% 1000 ml Route: IV; Rate: 1000 ml; Site: right antecubital; hb 16:00 Follow up: Response: No adverse reaction; IV Status: Infusion continued; IV Intake: hb 1000ml 15:10 Drug: Dilaudid (HYDROmorphone) 0.5 mg Route: IVP; Site: right antecubital; hb 16:00 Follow up: Response: No adverse reaction hb 15:10 Drug: Benadryl (diphenhydrAMINE) 50 mg Route: IVP; Site: right antecubital; hb 16:00 Follow up: Response: No adverse reaction hb 15:10 Drug: Reglan (metoCLOPramide) 10 mg Route: IVP; Site: right antecubital; hb 16:00 Follow up: Response: No adverse reaction hb 15:10 Drug: Ketorolac 30 mg Route: IVP; Site: right antecubital; hb 16:00 Follow up: Response: No adverse reaction hb Disposition Summary: 04/22/22 15:50 Discharge Ordered Location: Home jl9 Condition: Stable jl9 Diagnosis - Migraine without aura, intractable jl9 Followup: jl9 - With: Private Physician - When: 1 - 2 days - Reason: Recheck today's complaints, Continuance of care, Re-evaluation by your physician Discharge Instructions: - Discharge Summary Sheet jl9 - Migraine Headache, [id number] jl9 Forms: - Medication Reconciliation Form jl9 - Thank You Letter jl9 - Antibiotic Education jl9 - Prescription Opioid Use jl9 Signatures: Talon Whitt MD MD cha Smirch, Shelby, RN RN Sophie Fox RN RN Deuce Black jl9
--- NOTE | 2022-04-22 15:50 | ER ---
Nurse's Notes [facility] Name: Terry Akins Sr Age: 41 yrs Sex: Male : 1980 Arrival Date: 04/22/2022 Time: 14:15 Bed 12 Private MD: Diagnosis: Migraine without aura, intractable Presentation: 04/22 14:30 Chief complaint: Patient states: "Same thing that always brings me in. My migraines ss cause by my CLEAN UP PERSON shunt." Pt reports pain began at 0200 this morning. Coronavirus screen: Client denies travel out of the [place] in the last 14 days. Ebola Screen: Patient denies exposure to infectious person. Patient denies travel to an Ebola-affected area in the 21 days before illness onset. Initial Sepsis Screen: Does the patient meet any 2 criteria? No. Patient's initial sepsis screen is negative. Does the patient have a suspected source of infection? No. Patient's initial sepsis screen is negative. Risk Assessment: Do you want to hurt yourself or someone else? Patient reports no desire to harm self or others. Onset of symptoms was April 22, 2022. 14:30 Method Of Arrival: Ambulatory ss 14:30 Acuity: SARITHA 3 ss 14:34 Note Pt states, "I went to [facility] and they weren't going to give me my usual ss cocktail that Dr. Whitt gave me. Benadryl, Toradol, Dilaudid and the nausea medicine usually work and they said that couldn't give me that.". Historical: - Allergies: 14:32 No Known Allergies; ss - PMHx: 14:32 Hypertensive disorder; Migraine; ss - PSHx: 14:32 Appendectomy; carpal tunnel right; hernia; left hand tendonitis; Nerve transplantion; ss shunt; - Immunization history:: Client reports receiving the 2nd dose of the Covid vaccine. - Social history:: Smoking status: Reported history of juuling and/or vaping. Screenin:11 Abuse screen: Denies threats or abuse. Denies injuries from another. Nutritional hb screening: No deficits noted. Tuberculosis screening: No symptoms or risk factors identified. Fall Risk None identified. Assessment: 15:11 General: Appears in no apparent distress. Behavior is calm, cooperative. Pain: Pain hb currently is 10 out of 10 on a pain scale. Neuro: Level of Consciousness is awake, alert, obeys commands, Oriented to person, place, time, situation. Cardiovascular: Patient's skin is warm and dry. Respiratory: Respiratory effort is even, unlabored, Respiratory pattern is regular, symmetrical. GI: No signs and/or symptoms were reported involving the gastrointestinal system. : No signs and/or symptoms were reported regarding the genitourinary system. EENT: Reports left ear pain and headache. Derm: Skin is pink, warm \\T\\ dry. Musculoskeletal: No signs and/or symptoms reported regarding the musculoskeletal system. 16:03 Reassessment: Patient appears in no apparent distress at this time. Patient and/or hb family updated on plan of care and expected duration. Pain level reassessed. Patient is alert, oriented x 3, equal unlabored respirations, skin warm/dry/pink. Patient states feeling better. Patient states symptoms have improved. Vital Signs: 14:32 Height 6 ft. 3 in. (190.50 cm); Pain 10/10; ss 14:32 Resp 16; ss 14:33 Pulse 85; Temp 98.2; Pulse Ox 100% on R/A; ss 14:34 BP 158 / 102; ss ED Course: 14:15 Patient arrived in ED. mr 14:23 Jenn Obregon FNP-C [facility] snw 14:23 Talon Whitt MD is Attending Physician. snw 14:32 Triage completed. ss 14:32 Arm band placed on left wrist. ss 14:43 Deuce Wellington is PHCP. jl9 14:43 Talon Whitt MD is Attending Physician. jl9 14:52 Sophie Garcia, BRYN is Primary Nurse. hb 15:05 Inserted saline lock: 20 gauge in right antecubital area, using aseptic technique. hb 16:03 Patient has correct armband on for positive identification. hb 16:03 No provider procedures requiring assistance completed. IV discontinued, intact, hb bleeding controlled, No redness/swelling at site. Administered Medications: 15:10 Drug: NS 0.9% 1000 ml Route: IV; Rate: 1000 ml; Site: right antecubital; hb 16:00 Follow up: Response: No adverse reaction; IV Status: Infusion continued; IV Intake: hb 1000ml 15:10 Drug: Dilaudid (HYDROmorphone) 0.5 mg Route: IVP; Site: right antecubital; hb 16:00 Follow up: Response: No adverse reaction hb 15:10 Drug: Benadryl (diphenhydrAMINE) 50 mg Route: IVP; Site: right antecubital; hb 16:00 Follow up: Response: No adverse reaction hb 15:10 Drug: Reglan (metoCLOPramide) 10 mg Route: IVP; Site: right antecubital; hb 16:00 Follow up: Response: No adverse reaction hb 15:10 Drug: Ketorolac 30 mg Route: IVP; Site: right antecubital; hb 16:00 Follow up: Response: No adverse reaction hb Medication: 16:04 VIS not applicable for this client. hb Intake: 16:00 IV: 1000ml; Total: 1000ml. hb Outcome: 15:50 Discharge ordered by MD. rubi 16:03 Discharged to home ambulatory. hb 16:03 Condition: stable 16:03 Discharge instructions given to patient, Instructed on discharge instructions, follow up and referral plans. medication usage, Demonstrated understanding of instructions, follow-up care, medications. 16:12 Patient left the ED. hb Signatures: Jenn Obregon, SCHOLARSHIP COUNSELOR-C SCHOLARSHIP COUNSELOR-Csnw Ghislaine Reddy mr Natasha Holm RN RN ss Baxter, Heather, RN RN hb Linares, John jl9
[2022-04-22 16:54] VITALS: TEMP 98.2; O2SAT 100
[2022-04-22 17:03] VITALS: BP 158/102
== END 2022-04-22 16:12 | disposition home or self-care (01) ==
LOC: ER 14:06
DX: G43.019 Migraine without aura, intractable, without status migrainosus (principal); I10 Essential (primary) hypertension
CPT/HCPCS: 96361; 96375; 96374; 99283; J2765; J1200; J1170; J7030

== ENCOUNTER 2022-05-11 04:41 | Emergency (ER) | payer OTHER ==
--- OUTSIDE RECORDS SUMMARY | 2022-05-11 04:45 | XMS REPORT | Continuity of Care Document ---
:1980 Author Organization [facility] t Address [address] [place] [address] Care Team Providers Name Role Phone Asked, [...] Comments Source Alcohol intake 2018-05-25 2018-05-25 Current Buddhist 00:00:00 00:00:00 non-drinker of Hospital alcohol (finding) Tobacco use and 2018-05-25 2018-05-25 Smokeless tobacco Me thodist exposure 00:00:00 00:00:00 non-user Hospital History of 2018-04-25 Cigarette Smoker Methodis t tobacco use 00:00:00 Hospital Sex Assigned At [birth year] Buddhist 00:00:00 00:00:00 Hospital Smoking Status Start Date Stop Date Source Ex-smoker 2018-05-25 00:00:00 2018-05-25 00:00:00 [facility] Medications Ordered Filled Start Stop Current Ordering Indication Dosage Frequency Signature Comments Components Source Medication Medication Date Date Medication? Clinician (SIG) Name Name Marysol Gregg 0 2020- No Norah 1 tablet Common e HCl e HCl 4-28 05-03 [place] as needed [facility] 00:00: 00:00 for n/v - [facility] 00 :00 [facility] SUMAtriptan SUMAtriptan Yes POURAN inject PRN [...] medication [facility] No known 2017-08 No No known Metho di medications 0-[address] 19:40: [facility] 04 l Zofran Zofran Yes Norah 1 tablet Commo n [place] as needed [facility] Losartan Losartan Yes Norah 1 tablet C ommon Potassium-H Potassium-H [place] [facility] CTZ CTZ [facility] Hydrocodone Hydrocodone Yes Norah 1 tablet Common -Acetaminop -Acetaminop [place] as needed [facility] hen hen [facility] Adderall XR Adderall XR Yes Norah 1 capsule Common [place] in the [facility] morning [facility] Omeprazole Omeprazole Yes Norah 1 capsule Common [place] 30 minutes [facility] before - [facility] morning [facility] Dicyclomine Dicyclomine Yes Norah 1 tablet Common HCl HCl [place] [facility] No known No [facility] Immunizations Ordered Immunization Filled Immunization Date Status Commen ts Source Name Name Fluzone Quadrivalent 2018-06-03 Completed [facility] [...] BP Systolic 2018-09-25 10:26:00 154 mm[Hg] Location[facility] [place]; [facility] Position: Sitting BP Diastolic [...] Systolic 2018-06-03 14:09:00 136 mm[Hg] Location: [facility]; [facility] Position: Sitting BP Diastolic 2018-06-03 14:09:00 75 mm[Hg] [facility]: [facility]; [facility] Position: Sitting Height 2018-06-03 14:09:00 [...] MORE VWS 2018-07-24 00:00:00 [facility] RIGHT [id number] Emg/Ncv 2018-06-20 00:00:00 [facility] Sleep Lab - Sleep Study 2018-06-03 00:00:00 [facility] Split Night History of Cubital tunnel [facility] repair History of Appendectomy [facility] History of Wrist surgery [facility] History of Hemorrhoidectomy [facility] Plan of Care Planned Activity Planned Date Details Comments Source Future Scheduled Test 2022-04-13 HEPATITIS B Method [facility] 21:38:54 VACCINES (1 of 3 - 3-dose series) [code = HEPATITIS B VACCINES (1 of 3 - 3-dose series)] Future Scheduled Test 2022-04-13 COVID-19 VACCINE [facility] 21:38:54 (#1) [code = COVID-19 VACCINE (#1)] Future Scheduled Test 2022-04-13 INFLUENZA VACCINE [facility] 21:38:54 [code = INFLUENZA VACCINE] Future Scheduled Test 2022-04-13 HEPATITIS B Method [facility] 21:38:54 VACCINES (1 of 3 - 3-dose series) [code = HEPATITIS B VACCINES (1 of 3 - 3-dose series)] Future Scheduled Test 2022-04-13 COVID-19 VACCINE [facility] 21:38:54 (#1) [code = COVID-19 VACCINE (#1)] Future Scheduled Test 2022-04-13 INFLUENZA VACCINE [facility] 21:38:54 [code = INFLUENZA VACCINE] Diagnostic Test 2018-06-20 Emg/Ncv [code = [facility] Pending 00:00:00 Emg/Ncv] Diagnostic Test 2018-06-20 Emg/Ncv [code = [facility] Pending 00:00:00 Emg/Ncv] Future Scheduled Test COVID-19 VACCINE [facility] (1) [code = COVID-19 VACCINE (1)] Future Scheduled Test Hepatitis C Method [facility] screening (procedure) [code = 236424797] Future Scheduled Test INFLUENZA VACCINE [facility] [code = INFLUENZA VACCINE] Encounters Start End Encounter Admission Attending Care Care Encounter Source Date/Time Date/Time Type Type Clinicians Facility Department ID 2021-10-25 Outpatient MIGUEL ANGEL, [facility] ANAY [address] [facility] 11:23:00 GERONIMO 2021-09-06 Outpatient Vazquez, STLMLC ST[facility] [id number] Common 12:12:10 John [address] [facility] 2021-09-06 Outpatient Vazquez, STLMLC STLC [id number] Common 12:10:54 John [address]60 [facility] 2021-09-06 Outpatient Vazquez, STLMLC STLC [id number] Common 12:09:52 John 94988 [facility] 2021-09-06 Outpatient Vazquez, STLMLC STLC [id number] Common 11:54:05 John 98013 [facility] 2021-09-06 Outpatient Vazquez, STLMLC STLC [id number] Common 11:06:57 John 60440 [facility] 2021-09-06 Outpatient Vazquez, STLMLC STLC [id number] Common 11:06:47 John 85407 [facility] 2021-10-08 2021-10-10 Inpatient E DAY, [facility] 2057 [facility] 19:58:00 09:48:00 2021-10-03 2021-10-05 Inpatient DAY, NOAH [facility] 7505 [facility] 05:15:00 10:21:00 2021-05-11 2021-05-11 Outpatient STLMLC STLMLC [id number] Common 00:00:00 00:00:00 [facility] 2021-04-06 2021-04-06 Outpatient STLMLC STLMLC [id number] Common 00:00:00 00:00:00 [facility] 2021-04-06 2021-04-06 Outpatient STLMLC STLMLC [id number] Common 00:00:00 00:00:00 [facility] 2021-03-31 2021-03-31 Outpatient STLMLC STLMLC [id number] Common 00:00:00 00:00:00 [facility] 2020-07-20 2020-07-20 Outpatient STLMLC STLMLC [id number] Common 00:00:00 00:00:00 [facility] 2020-07-12 2020-07-12 Outpatient STLMLC STLMLC [id number] Common 00:00:00 00:00:00 [facility] 2020-05-23 2020-05-23 Outpatient STLMLC STLMLC [id number] Common 00:00:00 00:00:00 [facility] 2020-02-24 2020-02-24 [facility] [id number] Common 14:42:00 14:42:00 t [employer] [facility] [address] [facility] 2020-02-22 2020-02-22 [facility] [id number] Common 13:51:00 13:51:00 t [employer] [facility] [address] [facility] 2019-12-10 2019-12-10 [facility] [id number] Common 15:39:00 15:39:00 t [employer] [facility] [address] [facility] 2019-12-08 2019-12-08 [facility] [id number] Common 13:40:00 13:40:00 t [facility] Sp[address] [facility] 2019-12-07 2019-12-07 [facility] [id number] Common 12:05:00 12:05:00 t [facility] [address] [facility] 2019-11-16 2019-11-16 [facility] [id number] Common 11:00:00 11:00:00 t [facility] 2019-09-29 2019-09-29 [facility] [id number] Common 09:21:00 09:21:00 t [facility] 2019-09-21 2019-09-21 [facility] [id number] Common 14:00:00 14:00:00 t [facility] Sp[facility] 2019-03-13 2019-03-13 AppointEUNICE Serra [facility] [id number] [place] 09:00:00 09:00:00 t; Lesa RODRIGUEZ savannah Roberto M.D. 2018-10-02 2018-10-02 [facility] EUNICE YOUSIF [facility] [id number] [place] 15:00:00 15:00:00 t; Asher JONES i, M.D. ans POURAN, M.D. 2018-09-25 2018-09-25 Appointmen EUNICE CEJA [facility] [id number] [place] 10:30:00 10:30:00 t; BRANT CEJA NP Health and Valery GUO NP [facility] 2018-09-22 2018-09-22 AppointEUNICE Ibrahim [facility] [id number] [place] 15:30:00 15:30:00 t; Asher JONES i, M.D. ans POURAN, M.D. 2018-08-22 2018-08-22 [facility] TAMMYBOB [facility] [id number] [place] 09:30:00 09:30:00 t; Lesa BRYANT Ph savannah Rios M.D. 2018-07-29 2018-07-29 [facility]BOB [facility] [id number] [place] 14:30:00 14:30:00 t; Lesa BRYANT Ph savannah Rios M.D. 2018-07-25 2018-07-25 [facility] [id number] [place] 10:30:00 10:30:00 t; [facility] 2018-07-22 2018-07-22 [facility] [id number] [place] 11:15:00 11:15:00 t; Lesa BRYANT [facility] Valery MUNOZ, Orthopedics savannah BRYANT M.D. 2018-07-15 2018-07-15 [facility] [id number] [place] 10:30:00 10:30:00 t; Lesa BRYANT [facility] Physici TAMMY, Orthopedics savannah BRYANT M.D. 2018-07-09 2018-07-09 [facility] T[facility]BOB [facility] [id number] [place] 13:00:00 13:00:00 t; Lesa BRYANT Ph savannah Rios M.D. 2018-06-30 2018-06-30 [facility] [id number] [place] 10:15:00 10:15:00 t; Lesa BRYANT [facility] TAMMY, Orthopedics savannah BRYANT M.D. 2018-06-20 2018-06-20 [facility] [id number] [place] 13:40:00 13:40:00 t; SHANE MONROE [facility] lesia ROTH, Orthopedics bernice MONROE NP 2018-06-19 2018-06-19 [facility] [id number] [place] 08:15:00 08:15:00 t; SERJIO HUERTA D.O. Physici KERRY, ans D.O. 2018-06-17 2018-06-17 [facility] [id number] [place] 15:45:00 15:45:00 t; Lesa BRYANT [facility] Valery MUNOZ, Orthopedics savannah BRYANT M.D. 2018-06-03 2018-06-03 Appointmen [facility] [id number] [place] 13:45:00 13:45:00 t; SERJIO HUERTA D.O. [facility] savannah Vora D.O. Results Test Description Test Time Test Comments Results Result Sour e Comments [U] XRAY ELBOW 2 2018-06-17 [facility] VWS RIGHT [id number] 15:57:00 acquired, not reported on this accession number. [U] XRAY WRIST MIN 2018-06-17 [facility] 3 VWS RIGHT [id number] 15:57:00 acquired, not reported on this accession number.
[2022-05-11] MEDS ORDERED: PROMETHAZINE INJ 25 MG/ML AMP ONE (04:53)
[2022-05-11] MEDS ORDERED: HYDROMORPHONE HCL 1 MG/ML INJ ONE (04:53)
[2022-05-11] MEDS ORDERED: NA CHLORIDE 0.9% 1,000 ML ONE (04:53)
[2022-05-11] MEDS ORDERED: LIDOCAINE VISCOUS 2% SOLN 15 ML UDC ONE (05:07)
[2022-05-11] MEDS ORDERED: MAGNES/ALUMIN/SIMET 30ML UCUP ONE (05:10)
[2022-05-11] MEDS ORDERED: MEPERIDINE HCL 50 MG/ML ONE ×2 (05:52→12:20)
[2022-05-11] MEDS ORDERED: dexAMETHasone 10 MG/ML VIAL ONE (06:28)
[2022-05-11] MEDS ORDERED: METOCLOPRAMIDE 10 MG/2mL INJ ONE ×2 (06:28→12:20)
[2022-05-11] MEDS ORDERED: DIPHENHYDRAMINE 50 MG/ML VIAL ONE ×2 (06:28→12:21)
[2022-05-11] MEDS ORDERED: NA CHLORIDE 0.9% 100 ML ONE (06:28)
--- NOTE | 2022-05-11 08:07 | RAD REPORT ---
EXAM DESCRIPTION: RAD - Abdomen 1 View (KUB) - 05/11/2022 7:56 am CLINICAL HISTORY: Abnormal x-ray. 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 On the oblique view the shunt makes an angle of approximately 100 degrees. This is not felt to be a s ignificant kink.
[2022-05-11] MEDS ORDERED: HYDROCODONE/APAP 10/325 TAB ONE ×2 (08:12→11:49)
--- NOTE | 2022-05-11 11:08 | RAD REPORT ---
EXAM DESCRIPTION: MRI - Brain Wo Cont - 05/11/2022 10:53 am CLINICAL HISTORY: Headache COMPARISON: Head CT May 11, 2022 TECHNIQUE: Axial, sagittal, and coronal magnetic resonance images of the brain were obtained. FINDINGS: Artifact from the report for the ROVING WINDER shunt results in artifact obscuring detail of portions of the right parietal and right frontal lobes. A right sided shunt enters the right lateral ventricle. No significant abnormal signal within the brain. Diffusion-weighted/ADC mapping does not reveal evidence of acute infarction. The ventricles are small An extra-axial fluid collection is not noted. Fluid within the left mastoids IMPRESSION: Small ventricles. 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
--- NOTE | 2022-05-11 11:37 | ER ---
Nurse's Notes [facility] Name: Terry Akins Sr Age: 41 yrs Sex: Male : 1980 Arrival Date: 05/11/2022 Time: 04:43 Bed 14 Private MD: Diagnosis: Headache;SLIDE ATTENDANT Shunt Presentation: 05/11 04:50 Chief complaint: Patient states: "I have a horrible migraine and acid reflux. I think as6 my shunt is acting up". Coronavirus screen: At this time, the client does not indicate any symptoms associated with coronavirus-19. Ebola Screen: No symptoms or risks identified at this time. Initial Sepsis Screen: Does the patient meet any 2 criteria? No. Patient's initial sepsis screen is negative. Does the patient have a suspected source of infection? No. Patient's initial sepsis screen is negative. Risk Assessment: Do you want to hurt yourself or someone else? Patient reports no desire to harm self or others. Onset of symptoms was May 10, 2022. 04:50 Method Of Arrival: Ambulatory as6 04:50 Acuity: SARITHA 3 as6 Triage Assessment: 04:52 Headache History: The patient has had previous headaches and this one is more severe as6 than previous episodes. General: Appears uncomfortable, Behavior is cooperative, restless. Pain: Complains of pain in head Pain currently is 10 out of 10 on a pain scale. 05:35 Pain: Also complains of nausea, photophobia. aa9 12:56 Pain: Pain began gradually. kr3 Historical: - Allergies: 04:52 No Known Allergies; as6 - Home Meds: 04:52 lisinopril Oral [Active]; as6 - PMHx: 04:52 Hypertensive disorder; Migraine; as6 - PSHx: 04:52 Appendectomy; carpal tunnel right; hernia; left hand tendonitis; Nerve transplantion; as6 shunt; - Immunization history:: Client reports receiving the 2nd dose of the Covid vaccine, pfizer. - Social history:: Smoking status: Reported history of juuling and/or vaping. - Family history:: not pertinent. - Hospitalizations: : No recent hospitalization is reported. Screenin:35 Abuse screen: Denies threats or abuse. Denies injuries from another. Nutritional aa9 screening: No deficits noted. Tuberculosis screening: No symptoms or risk factors identified. Fall Risk None identified. Assessment: 04:50 General: Appears distressed, uncomfortable, Behavior is cooperative, anxious. Pain: aa9 Complains of pain in head Pain currently is 10 out of 10 on a pain scale. Pain: Noted to be grimacing, moaning. Neuro: Level of Consciousness is awake, alert, obeys commands, Oriented to person, place, time, situation. Cardiovascular: Patient's skin is warm and dry. Respiratory: Airway is patent Respiratory effort is even, unlabored, Respiratory pattern is regular. 05:12 GI: Pt is actively vomiting undigested food. aa9 08:05 General: Appears in no apparent distress. uncomfortable, Behavior is calm, cooperative, kr3 appropriate for age, Reports headache. 09:14 Reassessment: Patient and/or family updated on plan of care and expected duration. Pain kr3 level reassessed. Patient states symptoms have improved. 10:15 Reassessment: No changes from previously documented assessment. Patient and/or family kr3 updated on plan of care and expected duration. Pain level reassessed. 11:15 Reassessment: Patient states symptoms have not improved. head hurting again 10/[address] scan noise. 12:06 Reassessment: No changes from previously documented assessment. given sandwich, apple ss sauce, crackers, and water. 12:53 Reassessment: Patient states feeling better. Patient states symptoms have improved. kr3 Vital Signs: 04:50 BP 174 / 117; Pulse 94; Resp 18 S; Temp 98.9(O); Pulse Ox 100% on R/A; Weight 158.76 kg as6 (R); Height 6 ft. 3 in. (190.50 cm) (R); Pain 10/10; 08:15 BP 152 / 75; Pulse 59; Resp 18; Pulse Ox 100% on R/A; kr3 09:14 BP 137 / 93; Pulse 63; Resp 18; Pulse Ox 99% on R/A; kr3 10:15 BP 144 / 83; Pulse 67; Resp 18; Pulse Ox 100% on R/A; kr3 11:15 BP 130 / 73; Pulse 58; Resp 18; Pulse Ox 100% on R/A; kr3 12:30 BP 164 / 92; Pulse 64; Resp 18; Pulse Ox 100% on R/A; kr3 04:50 Body Mass Index 43.75 (158.76 kg, 190.50 cm) as6 ED Course: 04:43 Patient arrived in ED. ja2 04:44 Kwame Ortiz MD is Attending Physician. rn 04:45 Akua Wilson, BRYN is Primary Nurse. aa9 04:52 Triage completed. as6 04:52 Arm band placed on. as6 04:52 Inserted saline lock: 20 gauge in right antecubital area, using aseptic technique. aa9 05:35 Patient has correct armband on for positive identification. Bed in low position. Call aa9 light in reach. Side rails up X2. 06:22 Inserted saline lock: 22 gauge in right hand, using aseptic technique. kd3 07:00 Attending Physician role handed off by Kwame Ortiz MD kdr 07:00 Stephane Rizvi MD is Attending Physician. kdr 08:16 Primary Nurse role handed off by Akua Wilson, BRYN eb 08:18 aCndace Nair, BRYN is Primary Nurse. kr3 12:55 No provider procedures requiring assistance completed. IV discontinued, intact, kr3 bleeding controlled, No redness/swelling at site. Pressure dressing applied. Administered Medications: 05:04 Drug: Phenergan (promethazine) 12.5 mg Route: IVP; Site: right antecubital; aa9 05:05 Follow up: Response: No adverse reaction aa9 05:05 Drug: Dilaudid (HYDROmorphone) 1 mg Route: IVP; Site: right antecubital; aa9 05:05 Follow up: Response: No adverse reaction aa9 05:53 Follow up: Response: No adverse reaction; RASS: Restless (+1); RASS: Alert and Calm (0) aa9 05:13 Drug: NS 0.9% 1000 ml Route: IV; Rate: 1000 ml; Site: right antecubital; aa9 11:26 Follow up: Response: No adverse reaction; IV Status: Completed infusion; IV Intake: kr3 1000ml 05:13 Drug: GI Cocktail without - (Maalox Suspension 30 ml, Lidocaine Liquid 2 % 15 aa9 ml) Route: PO; 11:27 Follow up: Response: No adverse reaction kr3 06:35 Drug: Reglan (metoCLOPramide) 10 mg Route: IVP; Site: right hand; kd3 11:27 Follow up: Response: No adverse reaction kr3 06:35 Drug: Benadryl (diphenhydrAMINE) 25 mg Route: IVP; Site: right hand; kd3 11:28 Follow up: Response: No adverse reaction kr3 06:35 Drug: Decadron - Dexamethasone 10 mg Route: IVP; Site: right hand; kd3 11:28 Follow up: Response: No adverse reaction kr3 06:36 Drug: Demerol (meperidine) 50 mg Route: IVP; Site: right hand; kd3 11:27 Follow up: Response: No adverse reaction; RASS: Alert and Calm (0) kr3 08:21 Drug: Coaldale (HYDROcodone-acetaminophen) 10 mg-325 mg 1 tabs Route: PO; kr3 11:29 Follow up: Response: No adverse reaction; RASS: Alert and Calm (0) kr3 12:35 Drug: Reglan (metoCLOPramide) 10 mg Route: IVP; Site: right hand; kr3 12:58 Follow up: Response: No adverse reaction kr3 12:35 Drug: Demerol (meperidine) 50 mg Route: IVP; Site: right hand; kr3 12:58 Follow up: Response: No adverse reaction; RASS: Alert and Calm (0) kr3 12:35 Drug: Benadryl (diphenhydrAMINE) 25 mg Route: IVP; Site: right hand; kr3 12:57 Follow up: Response: No adverse reaction kr3 12:38 Not Given (Patient Refused): [place]ald[place] (HYDROcodone-acetaminophen) 10 mg-325 mg 1 tabs PO kr3 once 12:38 Not Given (Patient Refused): Neurontin (gabapentin) 300 mg PO once kr3 Medication: 12:57 VIS not applicable for this client. kr3 Intake: 11:26 IV: 1000ml; Total: 1000ml. kr3 Outcome: 11:36 Discharge ordered by . kdr 12:56 Discharged to home ambulatory. kr3 12:56 Condition: stable 12:56 Discharge instructions given to patient, family, Instructed on discharge instructions, follow up and referral plans. medication usage, Demonstrated understanding of instructions, follow-up care, medications, Prescriptions given X 2. 12:57 Patient left the ED. kr3 Signatures: Stephane Rizvi MD MD kdr Nieto, Roman, MD MD rn Smirch, Shelby, RN RN Alva White Jessica ja2 Slawson, Ashby, RN RN as6 Jacqui Arroyo RN RN kd3 Akua Wilson RN RN aa9 Candace Nair RN RN kr3 Corrections: (The following items were deleted from the chart) 08:20 08:18 BP 152 / 75; Pulse 59bpm; Resp 18bpm; Pulse Ox 100% RA; kr3 kr3
--- NOTE | 2022-05-11 11:37 | EDPHYS ---
Physician Documentation [facility] Name: Terry Akins Sr Age: 41 yrs Sex: Male : 1980 Arrival Date: 05/11/2022 Time: 04:43 Bed 14 Private MD: ED Physician Stephane Rizvi HPI: 05/11 04:50 This 41 yrs old Black Male presents to ER via Unassigned with complaints of Headache. rn 04:50 The patient complains of pain to the top of head and forehead. The patient describes rn the headache as aching. Onset: The symptoms/episode began/occurred last night. Associated signs and symptoms: Pertinent positives: nausea, Pertinent negatives: altered mental status, fever, neck stiffness, rash, vision changes, vision loss, vertigo. Severity of symptoms: At its worst the pain was severe, "similar to past headaches", in the emergency department the pain is unchanged. Headache History: The patient has had previous headaches and this one is similar to previous episodes. The patient has experienced similar episodes in the past. The patient has not recently seen a physician. 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 No fever. NO focal neuro complaints. . Historical: - Allergies: 04:52 No Known Allergies; as6 - Home Meds: 04:52 lisinopril Oral [Active]; as6 - PMHx: 04:52 Hypertensive disorder; Migraine; as6 - PSHx: 04:52 Appendectomy; carpal tunnel right; hernia; left hand tendonitis; Nerve transplantion; as6 shunt; - Immunization history:: Client reports receiving the 2nd dose of the Covid vaccine, pfizer. - Social history:: Smoking status: Reported history of juuling and/or vaping. - Family history:: not pertinent. - Hospitalizations: : No recent hospitalization is reported. ROS: 04:50 Constitutional: Negative for fever, chills, and weight loss, Eyes: Negative for injury, rn pain, redness, and discharge, Neck: Negative for injury, pain, and swelling, Cardiovascular: Negative for chest pain, palpitations, and edema, Respiratory: Negative for shortness of breath, cough, wheezing, and pleuritic chest pain, Abdomen/GI: Negative for abdominal pain, vomiting, diarrhea, and constipation, MS/Extremity: Negative for injury and deformity, Skin: Negative for injury, rash, and discoloration, Neuro: Negative for weakness, numbness, tingling, and seizure. Exam: 04:50 Constitutional: This is a well developed, well nourished patient who is awake, alert, rn appears uncomfortable, but ambulatory to room wtihout difficulty or assistance. Head/Face: Normocephalic, atraumatic. Eyes: Pupils equally round. Periorbital areas with no swelling, redness, or edema. Neck: No Meningismus. Cardiovascular: Regular rate and rhythm. No pulse deficits. Respiratory: No increased work of breathing, no retractions or nasal flaring. MS/ Extremity: Pulses equal, no cyanosis. Neurovascular intact. Full, normal range of motion. Equal circumference. Neuro: Awake and alert, GCS 15, oriented to person, place, time, and situation. Cranial nerves II-XII grossly intact. Motor strength 5/5 in all extremities. Sensory grossly intact. Cerebellar exam normal. Normal gait. Vital Signs: 04:50 BP 174 / 117; Pulse 94; Resp 18 S; Temp 98.9(O); Pulse Ox 100% on R/A; Weight 158.76 kg as6 (R); Height 6 ft. 3 in. (190.50 cm) (R); Pain 10/10; 08:15 BP 152 / 75; Pulse 59; Resp 18; Pulse Ox 100% on R/A; kr3 09:14 BP 137 / 93; Pulse 63; Resp 18; Pulse Ox 99% on R/A; kr3 10:15 BP 144 / 83; Pulse 67; Resp 18; Pulse Ox 100% on R/A; kr3 11:15 BP 130 / 73; Pulse 58; Resp 18; Pulse Ox 100% on R/A; kr3 12:30 BP 164 / 92; Pulse 64; Resp 18; Pulse Ox 100% on R/A; kr3 04:50 Body Mass Index 43.75 (158.76 kg, 190.50 cm) as6 MDM: 04:44 Patient medically screened. rn 08:02 Data reviewed: vital signs, nurses notes. ED course: . kdr 11:47 ED course: Patient states that he was feeling much better and that his headache had kdr subsided until he went to MRI. He stated that the noise in the MRI suite exacerbated his headache. I discussed with Dr. Patel the patient's presentation and MRI findings. He suggested that we begin Topamax and Ubrelvy and that he would see the patient in follow-up. I explained the findings to the patient with regard to the shunt series and the MRI. He was happy with the care provided (other than the MRI sound) and said he would follow-up with Dr. Patel if he would see him. Patient otherwise had no focal neurologic deficits and was otherwise stable in the ED.. 05/11 04:50 Order name: CT Head Brain wo Cont rn 05/11 04:50 Order name: Shuntogram XRAY rn 05/11 08:08 Order name: RAD; Complete Time: 08:11 EDMS 05/11 08:30 Order name: MRI - Brain Wo Cont kdr 05/11 11:09 Order name: MRI; Complete Time: 11:19 EDMS 05/11 04:50 Order name: IV Start; Complete Time: 05:13 rn Administered Medications: 05:04 Drug: Phenergan (promethazine) 12.5 mg Route: IVP; Site: right antecubital; aa9 05:05 Follow up: Response: No adverse reaction aa9 05:05 Drug: Dilaudid (HYDROmorphone) 1 mg Route: IVP; Site: right antecubital; aa9 05:05 Follow up: Response: No adverse reaction aa9 05:53 Follow up: Response: No adverse reaction; RASS: Restless (+1); RASS: Alert and Calm (0) aa9 05:13 Drug: NS 0.9% 1000 ml Route: IV; Rate: 1000 ml; Site: right antecubital; aa9 11:26 Follow up: Response: No adverse reaction; IV Status: Completed infusion; IV Intake: kr3 1000ml 05:13 Drug: GI Cocktail without - (Maalox Suspension 30 ml, Lidocaine Liquid 2 % 15 aa9 ml) Route: PO; 11:27 Follow up: Response: No adverse reaction kr3 06:35 Drug: Reglan (metoCLOPramide) 10 mg Route: IVP; Site: right hand; kd3 11:27 Follow up: Response: No adverse reaction kr3 06:35 Drug: Benadryl (diphenhydrAMINE) 25 mg Route: IVP; Site: right hand; kd3 11:28 Follow up: Response: No adverse reaction kr3 06:35 Drug: Decadron - Dexamethasone 10 mg Route: IVP; Site: right hand; kd3 11:28 Follow up: Response: No adverse reaction kr3 06:36 Drug: Demerol (meperidine) 50 mg Route: IVP; Site: right hand; kd3 11:27 Follow up: Response: No adverse reaction; RASS: Alert and Calm (0) kr3 08:21 Drug: [place] (HYDROcodone-acetaminophen) 10 mg-325 mg 1 tabs Route: PO; kr3 11:29 Follow up: Response: No adverse reaction; RASS: Alert and Calm (0) kr3 12:35 Drug: Reglan (metoCLOPramide) 10 mg Route: IVP; Site: right hand; kr3 12:58 Follow up: Response: No adverse reaction kr3 12:35 Drug: Demerol (meperidine) 50 mg Route: IVP; Site: right hand; kr3 12:58 Follow up: Response: No adverse reaction; RASS: Alert and Calm (0) kr3 12:35 Drug: Benadryl (diphenhydrAMINE) 25 mg Route: IVP; Site: right hand; kr3 12:57 Follow up: Response: No adverse reaction kr3 12:38 Not Given (Patient Refused): [place] (HYDROcodone-acetaminophen) 10 mg-325 mg 1 tabs PO kr3 once 12:38 Not Given (Patient Refused): Neurontin (gabapentin) 300 mg PO once kr3 Disposition Summary: 05/11/22 11:36 Discharge Ordered Location: Home kdr Problem: new kdr Symptoms: have improved kdr Condition: Stable kdr Diagnosis - Headache kdr - HELP DESK SUPPORT Shunt kdr Followup: kdr - With: Private Physician - When: 2 - 3 days - Reason: If symptoms return, Further diagnostic work-up, Recheck today's complaints, Continuance of care, Re-evaluation by your physician Discharge Instructions: - Discharge Summary Sheet kdr - General Headache Without Cause kdr - Brain Shunt Home Guide kdr Forms: - Medication Reconciliation Form kdr - Thank You Letter kdr Prescriptions: - Topamax 25 mg Oral tablet - take 1 tablet by ORAL route every 12 hours for 10 days; 20 tablet; Refills: 0, kdr Product Selection Permitted - Ubrelvy 100 mg Oral tablet - take 1 tablet by ORAL route as directed As needed may repeat dose once after 2 kdr hours if needed, not to exceed 200 mg in 24 hours; 10 tablet; Refills: 0, Product Selection Permitted Signatures: Dispatcher [employer] Stephane Bryan MD MD kdr Kwame Ortiz MD MD rn Slawson, Ashby, RN RN as6 Jacqui Arroyo RN RN kd3 Akua Wilosn, RN RN aa9 Candace Nair, RN RN kr3
[2022-05-11] MEDS ORDERED: GABAPENTIN 400 MG CAP ONE (11:48)
--- NOTE | 2022-05-11 18:13 | RAD REPORT ---
EXAM DESCRIPTION: CT - Head Brain Wo Cont - 05/11/2022 5:38 am CLINICAL HISTORY: Headache, [employer] shunt TECHNIQUE: 5 mm axial images were obtained through the brain without IV contrast. This exam was perf ormed according to our departmental dose-optimization program which includes use of Automated Exposur e Control, adjustment of the mA and/or kV according to patient size and/or use of iterative reconstru ction technique. COMPARISON: Head CT, 03/26/2022 FINDINGS: The brain parenchyma appears age appropriate. Right frontal ventriculostomy shunt appears stable in position with the tip near the foramen of Monro as on the previous exam. There is no intra- axial or extra-axial bleed seen. There is no mass or mass effect. There is no evidence of hydrocephal us. The orbital contents appear unremarkable. The visualized paranasal sinuses and mastoid air cells are patent. No fracture is present. IMPRESSION: Stable appearance of the brain with no acute intracranial abnormality. Right frontal ventriculostomy shunt is unchanged. No hydrocephalus. Electronically signed by: Angel Pinto MD 05/11/2022 6:20 AM CDT Due to temporary technical issues with the PACS/Fluency reporting system, reports are being signed by the in house radiologists without review as a courtesy to insure prompt reporting. The interpreting radiologist is fully responsible for the content of the report.
--- NOTE | 2022-05-11 18:15 | RAD REPORT ---
EXAM DESCRIPTION: RAD - Shuntogram - 05/11/2022 5:55 am CLINICAL HISTORY: 41 years Male headache, eval shunt TECHNIQUE: Multiple images of the head, neck, chest and abdomen were obtained on 05/11/2022 at 5: 36 AM as part of a shunt series . COMPARISON: Shuntogram report from 03/14/2022. The images were unavailable for review. FINDINGS: There is a right frontal ventriculoperitoneal shunt catheter. The opaque portions of the s rodriguez appear intact. The shunt catheter extends along the right side of the neck and along the anterio r right chest wall and extends along the right abdomen. The catheter crosses the midline and terminat es in the left lower quadrant. There may be a partial kink within the catheter just above the right c lavicle and within the right upper quadrant. This could be projectional in nature. The visualized lungs are grossly clear. The bowel gas pattern is nonspecific and nonobstructive. No a cute osseous abnormalities are identified. There is degenerative spondylosis along the mid cervical s pine. IMPRESSION: 1. Right frontal ventriculoperitoneal shunt catheter as described above. 2. There may be a partial kink within the catheter just above the right clavicle and within the rig ht upper quadrant. These potential areas of kinking may be projectional in nature. Electronically signed by: Yeimy Zamora DO 05/11/2022 6:58 AM CDT Due to temporary technical issues with the PACS/Fluency reporting system, reports are being signed by the in house radiologists without review as a courtesy to insure prompt reporting. The interpreting radiologist is fully responsible for the content of the report.
[2022-05-12 02:40] VITALS: TEMP 98.9
[2022-05-12 02:44] VITALS: O2SAT 100
[2022-05-12 02:46] VITALS: BP 164/92
== END 2022-05-11 12:57 | disposition home or self-care (01) ==
LOC: ER 04:41
DX: R51.9 Headache, unspecified (principal); Z98.2 Presence of cerebrospinal fluid drainage device; I10 Essential (primary) hypertension
CPT/HCPCS: 70450; 74018; 75809; 49427; 70551; 99283; J2765 ×2; J2550; J1200 ×2; J1100; J2175 ×2; J1170; J7030

== ENCOUNTER 2022-05-12 01:05 | Emergency (ER) | payer OTHER ==
--- OUTSIDE RECORDS SUMMARY | 2022-05-12 01:22 | XMS REPORT | Continuity of Care Document ---
:1980 Author Organization [facility] t Address [address] [place] [address] Care Team Providers Name Role Phone Asked, No Pcp Primary Care Physician Unavailable GERONIMO BALDERAS Attending Clinician Unavailable John Vazquez Attending Clinician Unavailable Noah LOJA Attending Clinician Geronimo Balderas Attending Clinician Day, Noah Ziegler Attending Clinician DAY, NOAH Ziegler Attending Clinician Unavailable Kasi Fried Attending Clinician Doctor Unassigned, [place] Attending Clinician Unavailable Audio Sound Suite Attending Clinician Unavailable FABY MULLER Attending Clinician Unavailable LAURENCE JIMENEZ Attending Clinician Unavailable Blaire PADRON Attending Clinician Unavailable MICHAEL LICONA M.D. Attending Clinician Unavailable ROBERT YOUSIF M.D. Attending Clinician Unavailable BRANT CEJA NP Attending Clinician Unavailable ANNETTE VALLE M.D. Attending Clinician Unavailable LORENZA SCHMITT M.D. Attending Clinician Unavailable Migue Valle Attending Clinician Geovanna Huerta Attending Clinician FER ROTH NP Attending Clinician Unavailable GEOVANNA HUERTA D.O. Attending Clinician Unavailable Jose Crenshaw Attending Clinician NOAH OSORIO Admitting Clinician Unavailable Noah Osorio Admitting Clinician Blaire PADRON Admitting Clinician Unavailable Migue Valle Admitting Clinician Geovanna Huerta Admitting Clinician Payers Payer Name Policy Policy Number Effective Expiration Source Type Date Date [facility] MEDICAID TRIMBLE [id number] 2018 00:00:00 [facility] [id number] 2019 [facility] 00:00:00 [place] [facility] HEALTH CHOICE [id number]/2019-PresentP[id number], [place] [address]Medicaid Problems Condition Condition Condition Status Onset Resolution Last Treating Co mments Source Name Details Category Date Date Treatment Clinician Date UNSPECIFIE UNSPECIFI Diagnosis Active 2021-10-26 Memoria D ED 3-15 18:20:00 l ABDOMINAL ABDOMINAL 00:00: Herm faina PAIN PAIN 00 Active 10/24/2021 [facility] DISPLACED DISPLACED Diagnosis Active 2021-10-08 Memoria EVALUATION SPECIALIST SHUNT EVALUATION SPECIALIST SHUNT 10-08 19:39:00 l Active 00:00: [place] 10/08/[address] [facility] EVALUATION SPECIALIST SHUNT EVALUATION SPECIALIST SHUNT Diagnosis Active 2021-10-26 Memoria MALF MALF 10-08 18:20:00 l Active 00:00: [place] 10/08/[address] [facility] G96.00 G96.00 Diagnosis Active 2021-10-26 Me moria Active 09-28 18:20:00 l 09/28/2021 00:00: Sadi n [address] MD LOJA Diagnosis Active 2021-05-10 Mem oria REFERRAL/ REFERRAL/ 05-10 20:33:00 l FLUIDS FLUIDS 00:00: [place] LEAKING LEAKING 00 FROM EAR FROM EAR Active 05/10/2021 [facility] CSF CSF Disease Active [facility] otorrhea otorrhea 05-09 Health 00:00: 00 Syncope Syncope Disease Active 2017-08 [facility] 00 l No known No known Disease Unive rs active active ity of problems problems [facility] Cubital Cubital Problem Active [facility] tunnel tunnel [...] Active [place] vomiting vomiting Physic i ans Lesion of Lesion of Problem 2019-01-26 Memoria ulnar ulnar 15:19:24 l nerve, nerve, [place] right right upper limb upper limb 9 [facility] Unspecifie Problem 2019-01-26 M emoria d Unspecifie 15:19:24 l osteoarthr d Sadi n itis, osteoarthr unspecifie itis, d site unspecifie d site 01/26/2019 [facility] Sleep Sleep Problem 2019-01-26 Memor ia apnea, apnea, 15:19:24 l unspecifie unspecifie He rmann d d 01/26/2019 [facility] Unspecifie Unspecifi Problem 2019-01-26 Memoria d asthma, ed asthma, 15:19:24 l uncomplica uncomplica He rmann leydi leydi 01/26/2019 [facility] Anxiety Anxiety Problem 2019-01-26 In moria disorder, disorder, 15:19:24 l unspecifie unspecifie He rmann d d 01/26/2019 [facility] Gastro-eso Gastro-es Problem 2019-01-26 Memoria phageal ophageal 15:19:24 l reflux reflux [place] disease disease without without esophagiti esophagiti s s 01/26/2019 [facility] Essential Essential Problem 2019-01-26 Memoria (primary) (primary) 15:19:24 l hypertensi hypertensi He rmann on on 01/26/2019 [facility] Personal Personal Problem 2019-01-26 Memoria history of history of 15:19:24 l nicotine nicotine Sadi n dependence dependence 01/26/2019 [facility] Allergy Allergy Problem 2019-01-26 In moria status to status to 15:19:24 l analgesic analgesic Herm faina agent agent status status 01/26/2019 [facility] correction correction Problem 2019-01-26 Memoria (current) (current) 15:19:24 l use of use of [place] non-steroi non-steroi siddharth siddharth anti-infla anti-infla mmatories mmatories (NSAID) (NSAID) 01/26/2019 [facility] Dependence Dependenc Problem 2019-01-26 Memoria on other e on other 15:19:24 l enabling enabling Sadi n machines machines and and devices devices 01/26/2019 [facility] Arthrodesi Arthrodes Problem 2019-01-26 Memoria s status is status 15:19:24 l 01/26/2019 Sadi n [facility] Hypertensi Hypertens Problem Resolve 2021-10-27 Memoria ve vince d 23:21:02 l disorder, disorder, Herm faina systemic systemic arterial arterial (disorder) (disorder) Resolved Problem 10/27/2021 [facility], RHODA Cedeño, RHODA BurrM H [facility] Cerebrospi Cerebrosp Problem Active 2021-10-27 Memoria nal fluid inal fluid 23:21:02 l leak leak [place] (disorder) (disorder) Active Problem 10/27/2021 [facility], RHODA Cedeño, RHODA Burr Chest pain Chest Problem Active 2021-10-27 Memoria (finding) pain 23:21:02 l (finding) [place] Active Problem 10/27/2021 [facility], RHODA Cedeño, RHODA Burr,[facility] Morbid Morbid Problem Active 2021-10-27 Mem oria obesity obesity 23:21:02 l (disorder) (disorder) He rmann Active Problem 10/27/2021 [facility], RHODA Cedeño, RHODA Burr Rhabdomyol Rhabdomyo Problem Active 2021-10-27 Memoria ysis lysis 23:21:02 l (disorder) (disorder) He rmann Active Problem 10/27/2021 [facility], RHODA Cedeño, RHODA Burr,[facility] Smoker Smoker Problem Active 2021-10-27 David katarzyna (finding) (finding) 23:21:02 l Active [place] Problem 10/27/2021 [facility], RHODA Cedeño, RHODA Burr MECH COMPL MECH Diagnosis Active 2021-10-26 Memoria OF COMPL OF 18:20:00 l VENTRICULA VENTRICULA jose alfredo R R INTRACRANI INTRACRANI AL S AL S Active [facility] R10.30 - R10.30 - Diagnosis Active 2021-10-26 Memoria LOWER LOWER 18:20:00 l ABDOMINAL ABDOMINAL Herm faina PAIN, PAIN, UNSPECIF UNSPECIF Active RHODA Cedeño R10.84 - R10.84 - Diagnosis Active 2022-01-10 Memoria GENERALIZE GENERALIZE 14:35:00 l D Tricia Cedeño ABDOMINAL ABDOMINAL PAIN PAIN Active RHODA Burr Sprain of Sprain Problem Resolve 2011-2021-10-27 2021-10-27 Memoria ligament of d 5-13 23:21:02 23:21:02 l of finger ligament 00:00: Kelly nn (disorder) of finger 00 (disorder) Resolved 12/23/2011 Problem 10/27/2021 [facility], RHODA Cedeño, Thomas Renteria [facility] History of Past Illness Condition Condition Condition Status Onset Resolution Last Treating Co mments Source Name Details Category Date Date Treatment Clinician Date Headache, Headache, Problem 2021-05-13 2021-05-13 Memoria unspecifie unspecifie 05-10 21:21:08 21:21:08 l d d 17:00: [place] 05/10/2021 00 05/13/2021 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, syndrome, 04:59: Herm faina right right 41 upper limb upper limb 07/17/2018 01/26/2019 [facility] Obstructiv Problem 2017-082019-01-11 2019-01-11 Memoria e sleep Obstructiv 08-28 11:08:48 11:08:48 l apnea e sleep 05:23: [place] (adult) apnea 17 (pediatric (adult) ) (pediatric ) 06/28/2018 01/11/2019 [facility] Unspecifie Unspecifi Problem 2017-082018-12-03 2018-12-03 Memoria d ed 0-11 14:53:30 14:53:30 l mononeurop mononeurop 04:28: Harpreet veliz athkatarzyna of athy of 42 right right upper limb upper limb 05/22/2018 12/03/2018 [facility] Pain in Pain in Problem 2017-082018-12-03 2018-12-03 Memmarlene arm, arm, 0-05 14:53:30 14:53:30 l unspecifie unspecifie 05:00: Harpreet veliz d d 00 05/16/2018 12/03/2018 [facility] Allergies, Adverse Reactions, Alerts Allergy Allergy Status Severity Reaction(s) Onset Inactive Treating Comm ents Source Name Type Date Date Clinician NO KNOWN Drug Active Univers ALLERGIE Class ity of S [facility] Acetamin drug Active Headache [place] ophen allergy [...] Start Date Stop Date Quantity Comments [facility] Alcohol Std [facility]inks [facility] Alcohol Binge History of Current sm[facility] tobacco use Exposure to Not sure [facility] SARS-CoV-2 (event) Alcohol Comment 2021-10-18 2021-10-18 [facility]ionally [facility] 00:00:00 00:00:00 Social History 2021-10-02 2021-10-02 [facility] 17:59:17 17:59:17 Tobacco use and 2021-04-18 2021-04-18 Smokeless tobacco [facility] exposure 00:00:00 00:00:00 non-user Alcohol intake 2018-05-25 2018-05-25 Current non-drinker M ethodist 00:00:00 00:00:00 of [facility] (finding) Sex Assigned At [birth year] Sabianist 00:00:00 00:00:00 Hospital Smoking Status Start Date Stop Date Source Unknown if [facility] Ex-[facility]oker 2021-10-18 00:00:00 2021-10-18 00:00:00 [facility] Medications Ordered Filled Start Stop Current Ordering Indication Dosage Frequency Signature Comments Components Source Medication Medication Date Date Medication? Clinician (SIG) Name Name No known No No known [place] medications 3-11 medication He alth 13:38: s 44 Cefazolin No Notes: Memori a 3- (Same As: l 04:00: [place] Kovacs 00 Kefzol) MEDICATION WASTE Product Size: 1000 mg Product Wasted: ___ mg Oxycodone No 10 mg, Memori a 2-28 Route: PO, l 21:36: Drug form: [place] 00 TAB, ONCE, Dosing Weight 156, kg, PRN Pain Score 7-10, Start date: 10/09/21 15:36:00 COMBAT SYSTEMS ENGINEER Ofirmev No or = 50 Memori a 2-28 kg, Start l 21:19: date: 10/09/21 15:19:00 COMBAT SYSTEMS ENGINEER sugammadex No Route: IV, M emoria (ANES) 10-09 Drug form: l 21:05: SOLN, ONCE, Stop date: 10/09/21 15:05:00 COMBAT SYSTEMS ENGINEER Hydromorpho No Notes: David katarzyna ne 10-09 Same as l 21:02: Dilaudid Flumazenil No Notes: Memor ia 10-09 (Same as: l 21:02: Romazicon) Naloxone No Notes: Memoria 10-09 Same as l 21:02: Narcan Ondansetron No 4 mg, Memor ia 10-09 Route: l 21:02: IVP, ONCE, Dosing Weight 156, kg, PRN Nausea & Vomiting, Start date: 10/09/21 15:02:00 COMBAT SYSTEMS ENGINEER ondansetron No Route: IV, Memoria (ANES) 10-09 Drug form: l 21:00: INJ, ONCE, Stop date: 10/09/21 15:00:00 COMBAT SYSTEMS ENGINEER ceFAZolin No Route: IV, Me moria (ANES) 10-09 Drug form: l 20:38: INJ, ONCE, Stop date: 10/09/21 14:38:00 COMBAT SYSTEMS ENGINEER propofol No Route: IV, Mem oria (ANES) 10-09 Drug form: l 20:33: INJ, ONCE, Stop date: 10/09/21 14:33:00 COMBAT SYSTEMS ENGINEER rocuronium No Route: IV, M emoria (ANES) 10-09 Drug form: l 20:33: INJ, ONCE, Stop date: 10/09/21 14:33:00 COMBAT SYSTEMS ENGINEER fentaNYL No Route: IV, Mem oria (ANES) 10-09 Drug form: l 20:33: INJ, ONCE, Stop date: 10/09/21 14:33:00 COMBAT SYSTEMS ENGINEER dexamethaso No Route: IV, Memoria ne (ANES) 10-09 Drug form: l 20:33: INJ, ONCE, Stop date: 10/09/21 14:33:00 COMBAT SYSTEMS ENGINEER lidocaine No Route: IV, Me moria (ANES) 10-09 Drug form: l 20:28: INJ, ONCE, Stop date: 10/09/21 14:28:00 COMBAT SYSTEMS ENGINEER Isolyte S No Route: IV, Me moria PH 7.4 10-09 Total l (ANES) 1000 19:29: Volume: Her jones mL 00 1,000, Start date: 10/09/21 13:29:00 COMBAT SYSTEMS ENGINEER, Stop date: 10/09/21 14:29:00 COMBAT SYSTEMS ENGINEER Epinephrine Yes Notes: David katarzyna 0.01 MG/ML 10-09 (Same as: l / Lidocaine 18:26: Xylocaine H ermann Hydrochlori 00 w/Epinephr de 10 MG/ML ine) Injectable Solution Lidocaine No 1 patch, David katarzyna 0.05 MG/MG 10-09 Route: l Transdermal 15:00: TOP, Sadi n Patch 00 Daily, Drug form: FILM, Start date: 10/09/21 9:00:00 COMBAT SYSTEMS ENGINEER, Duration: 30 day, Stop date: 11/07/21 9:00:00 CDT, 0 Levetiracet No 500 mg, 1 M emoria am 500 MG 10-09 tab, l Oral Tablet 15:00: Route: PO, [place] [Keppra] Drug form: TAB, Q12H, Dosing Weight 156, kg, Start date: 10/09/21 9:00:00 COMBAT SYSTEMS ENGINEER, Duration: 30 day, Stop date: 11/07/21 21:00:00 CDT, 0 Hydromorpho No Notes: David katarzyna ne - Same as l 13:57: Dilaudid Reglan No Notes: Memoria - (Same as: l 08:15: Reglan) Dilaudid No Notes: Memoria -28 Same as l 08:15: Dilaudid Sodium No 1,000 mL, Memori a Chloride 10-09 Rate: 75 l 0.9% IV 06:49: ml/hr, Davidson 1,000 mL 00 Infuse over: 13.3 hr, Route: IV, Dosing Weight 156 kg, Total Volume: 1,000, Start date: 10/09/21 0:49:00 COMBAT SYSTEMS ENGINEER, Duration: 30 day, Stop date: 11/08/21 0:48:00 CDT, BSA: 2.9 m2, 0 Docusate No Notes: Memoria 2- (Same as: l 03:00: Colace) [place] (Do Not Crush) sennosides, No Notes: David katarzyna [facility]CI - (Same as: l 03:00: Senokot) [place] 00 Saline No Notes: Memoria Flush 0.9% - (Same as: l 03:00: BD [place] 00 Posiflush) Sodium No 1,000 mL, Memori a Chloride 10-09 Rate: 50 l 0.9% IV 01:57: ml/hr, [place] 1,000 mL 00 Infuse over: 20 hr, Route: IV, Dosing Weight 156 kg, Total Volume: 1,000, Start date: 10/08/21 19:57:00 COMBAT SYSTEMS ENGINEER, Duration: 30 day, Stop date: 11/07/21 19:56:00 CDT, BSA: 2.9 m2, 0 Acetaminoph No Notes: Do M emoria en - not exceed l 01:57: 4 gm/day. [place] 00 (Same as: Tylenol) Acetaminoph No Notes: David katarzyna en 325 MG / 10-09 (Same as: l Hydrocodone 01:57: Esbon Kelly nn Bitartrate 00 325/5) Do 5 MG Oral not exceed Tablet 4gm/day of acetaminop hen. Morphine No Notes: Memoria 2- (Same l 01:57: as:MORPhin [place] 00 e Sulfate) Bisacodyl No Notes: Memori a 2- (Same As: l 01:57: Dulcolax, [place] 00 Bisco-Lax) Ondansetron No Notes: David katarzyna 2-28 (Same as: l 01:57: Zofran) [place] 00 MEDICATION WASTE Product Size: 4 mg Product Wasted: ___ mg Hydralazine No Notes: David katarzyna - (Same as: l :57: Apresoline ) Push over 5 minutes Labetalol No 10 mg, 2 David katarzyna 2-28 mL, Route: l 01:57: IVP, Drug form: INJ, Q15Min, Dosing Weight 156, kg, PRN Hypertensi on, Start date: 10/08/21 19:57:00 COMBAT SYSTEMS ENGINEER, Duration: 3 doses or times, Stop date: Limited # of times, 0 Saline No Notes: Memoria Flush 0.9% 10-09 (Same as: l :57: BD Posiflush) Insulin No Notes: Memoria regular - (Same as: l :57: Humulin R) Roll in palms of hands gently; Do not shake vigorously . WASTE: F/P - Black; E - Municipal Trash Bin Stable for 31 days at room temperatur e Expires in days from ____Date Dilaudid No Notes: Memoria 10-09 Same as l 01:30: Dilaudid Levetiracet Yes 500 mg = 1 Memoria am 500 MG 2-24 tab, PO, l Oral Tablet 13:52: Q12H, # 60 [place] [Keppra] 00 tab, 0 Refill(s), Pharmacy: [facility] #[id number], 190.5, cm, 10/03/21 6:40:00 COMBAT SYSTEMS ENGINEER, Height, 159.3, kg, 10/03/21 6:40:00 COMBAT SYSTEMS ENGINEER, Weight docusate Yes 2 cap, PO, Mem oria sodium 50 2-24 QPM, X 10 l MG / 13:52: day, # 20 [place] sennosides, 00 cap, 0 FCI 8.6 MG Refill(s), Oral Pharmacy: [facility] #[id number], 190.5, cm, 10/03/21 6:40:00 COMBAT SYSTEMS ENGINEER, Height, 159.3, kg, 10/03/21 6:40:00 COMBAT SYSTEMS ENGINEER, Weight magnesium Yes 8.725 gm = Me moria citrate 2-24 150 ml, l 58.2 MG/ML 13:52: PO, ONCE, He rmann Oral 00 if no Solution bowel movement in couple days, # 300 ml, 0 Refill(s), Pharmacy: [facility] #[id number], 190.5, cm, 10/03/21 6:40:00 COMBAT SYSTEMS ENGINEER, Height, 159.3, kg, 10/03/21 6:40:00 COMBAT SYSTEMS ENGINEER, Weight POLYETHYLEN Yes 17 gm, PO, Memoria E GLYCOL 2-24 Daily, X l 3350 142 13:52: 10 day, # Herm faina MG/ML Oral 00 170 gm, 0 Solution Refill(s), [Miralax] Pharmacy: [facility] #[id number], 190.5, cm, 10/03/21 6:40:00 COMBAT SYSTEMS ENGINEER, Height, 159.3, kg, 10/03/21 6:40:00 COMBAT SYSTEMS ENGINEER, Weight Ondansetron No 4 mg = 1 Me moria 4 MG Oral 2-24 tab, PO, l Tablet 13:52: Q8H, PRN [place] [Zofran] 00 Nausea/vom iting, X 3 day, # 10 tab, 0 Refill(s), Pharmacy: [facility] #[id number], 190.5, cm, 10/03/21 6:40:00 COMBAT SYSTEMS ENGINEER, Height, 159.3, kg, 10/03/21 6:40:00 COMBAT SYSTEMS ENGINEER, Weight Acetaminoph Yes 1 tab, PO, Memoria en 325 MG / 2-24 Q4-6H, PRN l Hydrocodone 13:52: Pain Score [place] Bitartrate 00 4-6, X 5 5 MG Oral day, # 30 Tablet tab, 0 [[place] Refill(s), 5/325] other heparin No Notes: Memoria 5000 2-23 porcine l units/mL 22:00: heparin Sadi n injectable 00 solution Saline No Notes: Memoria Flush 0.9% 2-23 Same as: l 03:00: BD [place] 00 Posiflush Sterile Levetiracet No Notes: David katarzyna am 500 MG 10-04 (Same l Oral Tablet 03:00: as:Keppra) [Keppra] Cefazolin No Notes: Memori a -23 (Same as l 02:00: Ancef) Docusate No Notes: Memoria 22 (Same as: l 23:00: Colace) (Do Not Crush) sennosides, No Notes: David katarzyna FCI 10-03 (Same as: l 23:00: Senokot) Famotidine No Notes: Memor ia 20 MG Oral 10-03 (Same as: l Tablet 23:00: Pepcid) Hydromorpho No 0.5 mg, Mem oria ne 10-03 Route: l 20:05: IVP, ONCE, Dosing Weight 159.3, kg, Priority: STAT, Start date: 10/03/21 14:05:00 COMBAT SYSTEMS ENGINEER, Stop date: 10/03/21 14:05:00 COMBAT SYSTEMS ENGINEER metoprolol No Route: IV, M emoria (ANES) 10-03 Drug form: l 19:20: INJ, ONCE, Stop date: 10/03/21 13:20:00 COMBAT SYSTEMS ENGINEER Oxycodone No 10 mg, Memori a Hydrochlori 10-03 Route: PO, l de 5 MG 19:16: Drug form: Herm faina Oral Tablet 00 TAB, Q4H, Dosing Weight 159.3, kg, PRN Pain Score 7-10, Start date: 10/03/21 13:16:00 COMBAT SYSTEMS ENGINEER, Duration: 30 day, Stop date: 11/02/21 13:15:00 CDT sugammadex No Route: IV, M emoria (ANES) 10-03 Drug form: l 18:37: SOLN, 00 ONCE, Stop date: 10/03/21 12:37:00 COMBAT SYSTEMS ENGINEER ondansetron No Route: IV, Memoria (ANES) 10-03 Drug form: l 18:22: INJ, ONCE, Stop date: 10/03/21 12:22:00 COMBAT SYSTEMS ENGINEER Dexamethaso No Notes: David katarzyna ne 2-22 Give with l 18:00: food. [place] (Same As: Decadron) Sodium No 1,000 mL, Memori a Chloride -22 Rate: 100 l 0.9% IV 17:50: ml/hr, [place] 1,000 mL 00 Infuse over: 10 hr, Route: IV, Dosing Weight 159.3 kg, Total Volume: 1,000, Start date: 10/03/21 11:50:00 COMBAT SYSTEMS ENGINEER, Duration: 30 day, Stop date: 11/02/21 11:49:00 CDT, BSA: 2.93 m2, 0 Labetalol No 10 mg, 2 David katarzyna 2-22 mL, Route: l 17:50: IVP, Drug form: INJ, Q15Min, Dosing Weight 159.3, kg, PRN Hypertensi on, Start date: 10/03/21 11:50:00 COMBAT SYSTEMS ENGINEER, Duration: 3 doses or times, Stop date: 10/04/21 0:00:00 COMBAT SYSTEMS ENGINEER, 0 Hydralazine No Notes: David katarzyna 2-22 (Same as: l 17:50: Apresoline ) Push over 5 minutes Ondansetron No Notes: David katarzyna 2-22 (Same as: l 17:50: Zofran) MEDICATION WASTE Product Size: 4 mg Product Wasted: ___ mg Acetaminoph No Notes: Do M emoria en 325 MG / - not exceed l Hydrocodone 17:50: 4gm/day of [place] Bitartrate 00 acetaminop 10 MG Oral hen. (Same Tablet as: [place] [[place] 325/10) 10/325] Dilaudid No Notes: Memoria 2-22 Same as l 17:50: Dilaudid Benadryl No Notes: Memoria 2-22 (Same as: l 17:50: Benadryl) phenol No Notes: Memoria 2-22 Chlorasept l 17:50: ic [place] (Same as: Chlorasept ic, Sore Throat [place]) WASTE: F/P - Black; E - Municipal Trash Bin Bisacodyl No Notes: Memori a 2-22 (Same As: l 17:50: Dulcolax, Bisco-Lax) Robaxin No Notes: Memoria 2-22 (Same l 17:50: as:Robaxin ) Melatonin 3 No Notes: David katarzyna MG Extended - (Same as: l Release 17:50: Melatonin) Herm faina Tablet 00 Tylenol No Notes: Do Memor ia 2- not exceed l 17:50: 4 gm/day. [place] (Same as: Tylenol) Reglan No Notes: Memoria 2- (Same as: l 17:50: Reglan) Phenergan No Notes: Do Mem oria - not give l 17:50: IV push. (Same as: Phenergan) Saline No Notes: Memoria Flush 0.9% - Same as: l 17:50: BD Posiflush Sterile lidocaine No Route: IV, Me moria (ANES) 10-03 Drug form: l 16:45: INJ, ONCE, Stop date: 10/03/21 10:45:00 COMBAT SYSTEMS ENGINEER rocuronium No Route: IV, M emoria (ANES) 10-03 Drug form: l 16:45: INJ, ONCE, Stop date: 10/03/21 10:45:00 COMBAT SYSTEMS ENGINEER dexamethaso No Route: IV, Memoria ne (ANES) - Drug form: l 16:45: INJ, ONCE, Stop date: 10/03/21 10:45:00 COMBAT SYSTEMS ENGINEER phenylephri No Route: IV, Memoria ne (ANES) 2- Drug form: l 16:40: INJ, ONCE, Stop date: 10/03/21 10:40:00 COMBAT SYSTEMS ENGINEER Hydralazine No Notes: David katarzyna 2-22 (Same as: l 16:37: Apresoline ) Push over 5 minutes Labetalol No 10 mg, 2 David katarzyna 2-22 mL, Route: l 16:37: IVP, Drug form: INJ, Q5Min, Dosing Weight 159.3, kg, PRN Elevated BP, Start date: 10/03/21 10:37:00 COMBAT SYSTEMS ENGINEER, Duration: 5 doses or times, Stop date: 10/04/21 0:00:00 COMBAT SYSTEMS ENGINEER, 0 Oxycodone No Notes: Memori a Hydrochlori - (Same as: l de 5 MG 16:37: Roxicodone Herm faina Oral Tablet ) Hydromorpho No Notes: David katarzyna ne - Same as l 16:37: Dilaudid Flumazenil No Notes: Memor ia - (Same as: l 16:37: Romazicon) Naloxone No Notes: Memoria - Same as l 16:37: Narcan Ondansetron No Notes: David katarzyna -22 (Same as: l 16:37: Zofran) MEDICATION WASTE Product Size: 4 mg Product Wasted: ___ mg propofol No Route: IV, Mem oria (ANES) 10-03 Drug form: l 16:35: INJ, ONCE, Stop date: 10/03/21 10:35:00 COMBAT SYSTEMS ENGINEER fentaNYL No Route: IV, Mem oria (ANES) 10-03 Drug form: l 16:35: INJ, ONCE, Stop date: 10/03/21 10:35:00 COMBAT SYSTEMS ENGINEER midazolam No Route: IV, Me moria (ANES) 10-03 Drug form: l 16:24: SOLN, ONCE, Stop date: 10/03/21 10:24:00 COMBAT SYSTEMS ENGINEER ceFAZolin No Route: IV, Me moria (ANES) 10-03 Drug form: l 16:24: INJ, ONCE, Stop date: 10/03/21 10:24:00 COMBAT SYSTEMS ENGINEER levETIRAcet No Route: IV, Memoria am (ANES) 10-03 Drug form: l 100 mg 16:20: INJ, Start Kelly nn 00 date: 10/03/21 10:20:00 COMBAT SYSTEMS ENGINEER, Stop date: 10/03/21 11:20:00 COMBAT SYSTEMS ENGINEER propofol No Route: IV, Mem oria (ANES) 10 10-03 Drug form: l mg 15:26: INJ, Start [place] 00 date: 10/03/21 9:26:00 COMBAT SYSTEMS ENGINEER, Stop date: 10/03/21 10:26:00 COMBAT SYSTEMS ENGINEER Isolyte S No Route: IV, Me moria PH 7.4 10-03 Total l (ANES) 1000 14:26: Volume: Her jones mL 00 1,000, Start date: 10/03/21 8:26:00 COMBAT SYSTEMS ENGINEER, Stop date: 10/03/21 9:26:00 COMBAT SYSTEMS ENGINEER Isolyte S No Notes: Memori a PH 7.4 10-03 (Same as: l 1,000 mL 12:35: Isolyte S Herm faina 00 PH7.4, Normosol-R PH 7.4, Plasma-Lyt e A ) Acetaminoph No 1,000 mg, M emoria en 10-03 Route: PO, l 12:35: Drug form: [place] 00 TAB, PRE OP, Dosing Weight 160.3, kg, Priority: NOW, Start date: 10/03/21 6:35:00 COMBAT SYSTEMS ENGINEER, Duration: 1 doses or times NS + KCL No Notes: Memoria 20mEq/L 10-03 PREMIX IV l 1000ml 12:00: - Do Not [place] (Premix) 00 Alter 1,000 mL WASTE: F/P - Sink; E - Municipal Trash Bin ceFAZolin + No Notes: David katarzyna sterile 10-03 (Same As: l water 30 mL 12:00: Ancef, Herm faina 00 Kefzol) MEDICATION WASTE Product Size: 1000 mg Product Wasted: ___ mg Acetaminoph No 1 tab, PO, Memoria en 300 MG / 2-21 PRN, PRN l Codeine 18:02: Headache Sadi n Phosphate 00 1-5, 0 30 MG Oral Refill(s) Tablet [Tylenol with Codeine #3] Zofran 0 No PRN, 0 Memoria 10-02 Refill(s) l 18:02: [facility] Sodium 2021-0 No 250 mL, Memoria Chloride 10-02 Rate: To l 0.9% 17:06: [place] (titrate) 00 and flush 250 mL remaining blood products., Dosing Weight 160.3, kg, Route: IV, Total Volume: 250, Start Date: 10/02/21 11:06:00 [employer], Duration: 1 day, Stop date: 10/03/21 11:05:00 [employer], Replace Every: 24 hr, 0 Acetaminoph 0 No 1 tab, David katarzyna en 325 MG / 05-11 Route: PO, l Hydrocodone 12:17: Drug Form: [facility] Bitartrate 00 TAB, 5 MG Oral Dosing Tablet Weight 139.409, kg, ONCE, STAT, Start date: 05/11/21 7:17:00 CDT, Stop date: 05/11/21 7:17:00 CDT Acetaminoph 0 No 1,000 mg, M emoria en 05-11 Route: PO, l 07:46: ONCE, [place] Dosing Weight 139.409, kg, Start date: 05/11/21 2:46:00 CDT, Stop date: 05/11/21 2:46:00 CDT Iohexol 0 No 100 mL, Memoria 05-11 Route: l 07:23: IVP, Drug Form: SOLN, Dosing Weight 139.409, kg, ONCALL, STAT, Start date: 05/11/21 2:23:00 CDT, Duration: 1 doses or times, Dose = 2.2ml/kg, Max dose = 100ml -- "To be infused by Radiology Staff ONLY" ProAir HFA Yes INHALE 2 UT 108 [...] 00:00 for n/v - [facility] 00 :00 [facility] ondansetron 2019-0 Yes [id number] 4mg Take 1 [facility] (ZOFRAN 3-11 tablet by ity of ODT) 4 mg 00:00: mouth [place] disintegrat 00 every 8 Medic al ing tablet (eight) Branch hours as needed for Nausea and Vomiting (N/V). benzonatate 2019-0 Yes [id number] 200mg Take 1 [facility] 200 mg 3-11 capsule by ity of capsule 00:00: mouth 3 [place] 00 (three) Medical times Branch daily as needed for Cough for up to 20 doses. ibuprofen 2019-0 Yes [id number] 600mg Take 1 U nivers 600 mg [...] DAILY ans Delayed Delayed 00 Release Release Oxycodone 2017-08 No 5 mg, Memoria Hydrochlori 09-08 Route: PO, l de 5 MG 22:24: Drug form: Herm faina Oral Tablet 00 TAB, ONCE, Dosing Weight 139.409, kg, PRN Pain Score 4-6, Start date: 07/09/18 16:24:00 COMBAT SYSTEMS ENGINEER Promethazin 2017-08 No Notes: Do M emoria e 09-08 not give l 21:26: IV push. (Same as: Phenergan) Lorazepam 2017-08 No Notes: Memori a 09-08 (Same as: l 21:26: Ativan) Dexamethaso 2017-08 No Notes: David katarzyna ne 09-08 Concentrat l 21:26: ion: 4mg/ml Racepinephr 2017-08 No Notes: David katarzyna ine 09-08 (racepinep l 21:26: hrine *2.25% inh 0.5ml SOLN) (Same as:S2) Glycopyrrol 2017-08 No Notes: David katarzyna ate 09-08 (Same as: l 21:26: Robinul) Albuterol 2017-08 No Notes: SEE Me moria 0.83 MG/ML 09-08 RT l Inhalant 21:26: DOCUMENTAT Her jones Solution 00 ION (Same as: Proventil) Diphenhydra 2017-08 No Notes: David katarzyna mine 09-08 (Same as: l 21:26: Benadryl) Ondansetron 2017-08 No Notes: David katarzyna 09-08 (Same as: l 21:26: Zofran) MEDICATION WASTE Product Size: 4 mg Product Wasted: __0_ mg Meperidine 2017-08 No Notes: Memor ia 09-08 (Same as: l 21:26: Demerol) "Use Precaution in Elderly, Seizure disorders, and Renal impairment " Hydromorpho 2017-08 No Notes: David katarzyna ne 09-08 Same as: l 21:26: Dilaudid [place] 00 Naloxone 2017-08 No Notes: Memoria 09-08 Same as l 21:26: Narcan Ephedrine 2017-08 No Notes: Memori a 09-08 final l 21:26: concentrat [place] 00 ion 5 mg/mL Acetaminoph 2017-08 No Notes: Max Memoria en 09-08 acetaminop l 21:26: hen 4000 [place] 00 mg/day (4 gm/day). (Same as: Tylenol Extra Strength) Fentanyl 2017-08 No Notes: Memoria 09-08 (Same as: l 21:26: Sublimaze) [place] 00 Preservati ve free. Hydralazine 2017-08 No Notes: David katarzyna 09-08 (Same as: l 21:26: Apresoline ) Push over 5 minutes Labetalol 2017-08 No 10 mg, 2 David katarzyna - mL, Route: l 21:26: IVP, Drug form: INJ, Q5Min, Dosing Weight 139.409, kg, PRN Elevated BP, Start date: 07/09/18 15:26:00 COMBAT SYSTEMS ENGINEER, Duration: 5 doses or times, Stop date: Limited # of times Insulin 2017-08 No Notes: Memoria Lispro 09-08 (Same as: l 21:26: Humalog ) Roll in palms of hands gently; Do not shake `vigorousl y. "Single Patient Use Only " WASTE: F/P - Black; E - Municipal Trash Bin Stable for 28 days at room temperatur e. Expires in days from ____Date ondansetron 2017-08 No Route: IV, Memoria (ANES) 09-08 Drug form: l 21:19: INJ, ONCE, Stop date: 07/09/18 15:19:00 COMBAT SYSTEMS ENGINEER ceFAZolin 2017-08 No Route: IV, Me moria (ANES) 09-08 Drug form: l 20:43: INJ, ONCE, Stop date: 07/09/18 14:43:00 COMBAT SYSTEMS ENGINEER lidocaine 2017-08 No Route: IV, Me moria (ANES) 09-08 Drug form: l 20:43: INJ, ONCE, Stop date: 07/09/18 14:43:00 COMBAT SYSTEMS ENGINEER propofol 2017-08 No Route: IV, Mem oria (ANES) 09-08 Drug form: l 20:43: INJ, ONCE, Stop date: 07/09/18 14:43:00 COMBAT SYSTEMS ENGINEER fentaNYL 2017-08 No Route: IV, Mem oria (ANES) 09-08 Drug form: l 20:43: INJ, ONCE, Stop date: 07/09/18 14:43:00 COMBAT SYSTEMS ENGINEER metoclopram 2017-08 No Route: IV, Memoria debbie (ANES) 09-08 Drug form: l 20:38: INJ, ONCE, Stop date: 07/09/18 14:38:00 COMBAT SYSTEMS ENGINEER famotidine 2017-08 No Route: IV, M emoria (ANES) 09-08 Drug form: l 20:38: INJ, ONCE, Stop date: 07/09/18 14:38:00 COMBAT SYSTEMS ENGINEER dexamethaso 2017-08 No Route: IV, Memoria ne (ANES) 09-08 Drug form: l 20:38: INJ, ONCE, Stop date: 07/09/18 14:38:00 COMBAT SYSTEMS ENGINEER midazolam 2017-08 No Route: IV, Me moria (ANES) 09-08 Drug form: l 20:38: SOLN, ONCE, Stop date: 07/09/18 14:38:00 COMBAT SYSTEMS ENGINEER Lactated 2017-08 No Route: IV, Mem oria Ringers 09-08 Total l Injection 19:45: Volume: Kelly nn IV (ANES) 00 1,000, 1000 mL Start date: 07/09/18 13:45:00 COMBAT SYSTEMS ENGINEER, Stop date: 07/09/18 14:45:00 COMBAT SYSTEMS ENGINEER Famotidine 2017-08 No Notes: Memor ia 40 MG Oral 09-08 (Same as: l Tablet 19:37: Pepcid) [place] [Pepcid] 00 Celebrex 2017-08 No 200 mg, Memori a 09-08 Route: PO, l 19:00: Drug form: [place] 00 CAP, ONCALL, Dosing Weight 140.909, kg, Start date: 07/09/18 13:00:00 COMBAT SYSTEMS ENGINEER, Duration: 30 day, Stop date: 08/08/18 12:59:00 COMBAT SYSTEMS ENGINEER Lidocaine 2017-08 No Notes: Memori a Hydrochlori 09-08 Preservati l de 10 MG/ML 19:00: ve free. He rmann Injectable 00 (Same as: Solution Xylocaine MPF) Famotidine 2017-08 No Notes: Memor ia 09-08 (Same as: l 19:00: Pepcid) [place] 00 Can be dilute in 5-10cc NS IVP: Slow IV push over at least 2 minutes. Zofran 2017-08 No 4 mg, Memoria 09-08 Route: l 18:53: IVP, Drug [place] 00 form: INJ, ONCE, Dosing Weight 139.409, kg, Priority: STAT, Start date: 07/09/18 12:53:00 COMBAT SYSTEMS ENGINEER, Stop date: 07/09/18 12:53:00 COMBAT SYSTEMS ENGINEER Tylenol 2017-08 No 1,000 mg, Memor ia 09-08 Route: PO, l 18:20: ONCE, [place] 00 Dosing Weight 140.909, kg, Priority: STAT, Start date: 07/09/18 12:20:00 COMBAT SYSTEMS ENGINEER, Stop date: 07/09/18 12:20:00 COMBAT SYSTEMS ENGINEER Insulin 2017-08 No Notes: Memoria Lispro 09-08 (Same as: l 18:18: Humalog ) [place] 00 Roll in palms of hands gently; Do not shake `vigorousl y. "Single Patient Use Only " WASTE: F/P - Black; E - Municipal Trash Bin Stable for 28 days at room temperatur e. Expires in days from ____Date Calcium 2017-08 No 1,000 mL, Memor ia Chloride 09-08 Rate: 25 l 0.0014 18:18: ml/hr, [place] MEQ/ML / 00 Infuse Potassium over: 40 Chloride hr, Route: 0.004 IV, Dosing MEQ/ML / Weight Sodium 140.909 Chloride kg, Total 0.103 Volume: MEQ/ML / 1,000, Sodium Start Lactate date: 0.028 07/09/18 MEQ/ML 12:18:00 Injectable COMBAT SYSTEMS ENGINEER, Solution Duration: 30 day, Stop date: 08/08/18 12:17:00 COMBAT SYSTEMS ENGINEER, 2.75, m2 ceFAZolin + 2017-08 No Notes: David katarzyna sterile 09-08 (Same As: l water 30 mL 12:00: Ancef, Herm faina 00 Kefzol) MEDICATION WASTE Product Size: 1000 mg Product Wasted: ___ mg Lactated 2017-08 No 1,000 mL, David katarzyna Ringers 09-08 Rate: KVO l Injection 12:00: rate, [place] IV 1,000 mL 00 Route: IV, Dosing Weight 140.909 kg, Total Volume: 1,000, Start date: 07/09/18 6:00:00 COMBAT SYSTEMS ENGINEER, Duration: 30 day, Stop date: 08/08/18 5:59:00 COMBAT SYSTEMS ENGINEER, 2.75, m2 Norvasc 2017-08 Yes See Memoria 09-07 Instructio l 18:43: ns, PO [place] 00 Daily, 0 Refill(s) Amlodipine 2017-08 Yes See Memoria 09-07 Instructio l 18:42: ns, PO [place] 00 Daily, 0 Refill(s) amLODIPine amLODIPine 2017-08 Yes POURAN 1 QD [...] medication st 19:40: [facility] l gabapentin 2017-08 Yes 300 mg = 1 M emoria 300 MG Oral 0-05 cap, PO, l Capsule 12:28: TID, take Kelly nn [Neurontin] 00 1 day 1. Take 1 BID on day 2. Then TID, # 90 cap, 0 Refill(s) Acetaminoph 2017-08 No 1 tab, PO, Memoria en 300 MG / 0-05 Q6H, PRN l Codeine 12:28: as needed Kelly nn Phosphate 00 for pain, 30 MG Oral X 4 day, # Tablet 12 tab, 0 [Tylenol Refill(s) with Codeine #3] Morphine 2017-08 No Notes: Memoria 0-05 (Same l 11:34: as:MORPhin [place] 00 e Sulfate) Dexamethaso 2017-08 No 8 mg, Memor ia ne 0-05 Route: IM, l 11:01: ONCE, Dosing Weight 144.091, kg, Priority: STAT, Start date: 05/16/18 6:01:00 CDT, Stop date: 05/16/18 6:01:00 CDT Zofran ODT 2017-08 No 4 mg, Memori a 0-05 Route: PO, l 11:01: Drug form: [place] 00 TABDIS, ONCE, Dosing Weight 144.091, kg, Priority: STAT, Start date: 05/16/18 6:01:00 CDT, Stop date: 05/16/18 6:01:00 CDT Morphine 2017-08 No 8 mg, Memoria 0-05 Route: IM, l 11:01: ONCE, Dosing Weight 144.091, kg, Priority: STAT, Start date: 05/16/18 6:01:00 CDT, Stop date: 05/16/18 6:01:00 CDT Zofran Zofran Yes Norah 1 tablet Commo n [place] as needed [place] Losartan Losartan Yes Norah 1 tablet C ommon Potassium-H Potassium-H [place] [facility] CTZ CTZ [facility] Hydrocodone Hydrocodone Yes Norah 1 tablet Common -Acetaminop -Acetaminop [place] as needed [facility] Adderall XR Adderall XR Yes Norah 1 capsule Common [place] in the [facility] morning [facility] Omeprazole Omeprazole Yes Norah 1 capsule Common [place] 30 minutes Spirit before - [facility] morning [facility] Dicyclomine Dicyclomine Yes Norah 1 tablet Common HCl HCl [place] [facility] - [facility] No known No [facility] Immunizations Ordered Immunization Filled Immunization Date Status Commen ts Source Name Name COVID-19 Pfizer & 2021-05-06 [facility] (PURPLE-DILUTE) COVID-19 Pfizer & 2021-05-06 [facility] 00:[facility]:00 COVID-19 Pfizer & 2021-04-15 [facility]pleted [facility] 00:00:00 (PURPLE-DILUTE) COVID-19 Pfizer & 2021-04-15 [facility] 00:00:00 Fluzone Quadrivalent 2018-06-03 Completed [facility] 0.5 ML Intramuscular 14:35:00 Suspension Vital Signs Vital Name Observation Time Observation Value Comments Source Heart Rate 2021-10-10 Magdalene Joyneran n 14:08:15 Systolic (mm Hg) 2021-10-10 [facility] Harpreet rmann 14:07:42 Diastolic (mm Hg) 2021-10-10 [facility] ermann 14:07:42 Heart Rate 2021-10-10 [facility] Sadi n 14:07:42 Temperature Oral 2021-10-10 99.2 F [facility] Harpreet rmann (F) 14:07:27 Heart Rate 2021-10-10 [facility] Sadi n 10:20:56 Respitory Rate 2021-10-10 [facility] 10:20:56 Systolic (mm Hg) 2021-10-10 [facility] Harpreet rmann 10:20:37 Diastolic (mm Hg) 2021-10-10 [facility] ermann 10:20:37 Temperature Oral 2021-10-10 98.1 F [facility] Harpreet rmann (F) 10:19:31 Respitory Rate 2021-10-10 [facility] 05:19:58 Systolic (mm Hg) 2021-10-10 [facility] rmann 05:19:44 Diastolic (mm Hg) 2021-10-10 [facility] 05:19:44 Temperature Oral 2021-10-10 98.7 F [facility] r[facility] (F) 05:18:56 Respitory Rate 2021-10-10 [facility] 01:47:26 Height 2021-10-09 190.5 cm [facility] Sadi n 10:00:00 Weight 2021-10-09 [facility] S[facility] n 10:00:00 BMI Calculated 2021-10-09 [facility] 10:00:00 Heart Rate 2021-10-09 [facility] Sadi n 09:21:12 Respitory Rate 2021-10-09 [facility] 09:21:12 Systolic (mm Hg) 2021-10-09 [facility] 09:21:01 Diastolic (mm Hg) 2021-10-09 [facility] 09:21:01 Heart Rate 2021-10-09 [facility] Sadi n 09:21:01 Temperature Oral 2021-10-09 98.4 F [facility] Harpreet rmann (F) 09:20:59 Systolic (mm Hg) 2021-10-09 [facility] 06:55:11 Diastolic (mm Hg) 2021-10-09 [facility] 06:55:11 Heart Rate 2021-10-09 [facility] Sadi n 06:55:11 Systolic (mm Hg) 2021-10-09 [facility] 06:02:00 Diastolic (mm Hg) 2021-10-09 [facility] 06:02:00 Respitory Rate 2021-10-09 [facility] 06:02:00 Respitory Rate 2021-10-09 [facility] 03:17:00 Height 2021-10-08 190.5 cm [facility] Sadi n 23:44:00 BMI Calculated 2021-10-08 [facility] 23:44:00 Weight 2021-10-08 [facility] Sadi n 23:44:00 Temperature Oral 2021-10-08 98.6 F [facility] Harpreet rmann (F) 23:44:00 Heart Rate 2021-10-05 [facility] Sadi n 13:48:13 Respitory Rate 2021-10-05 [facility] 13:48:13 Systolic (mm Hg) 2021-10-05 [facility] 13:47:41 Diastolic (mm Hg) 2021-10-05 [facility] 13:47:41 Heart Rate 2021-10-05 [facility] Sadi n 13:47:41 Temperature Oral 2021-10-05 99.2 F [facility] Harpreet rmann (F) 13:47:17 Heart Rate 2021-10-05 [facility] Sadi n 09:39:43 Respitory Rate 2021-10-05 [facility] 09:39:43 Systolic (mm Hg) 2021-10-05 [facility] 09:39:35 Diastolic (mm Hg) 2021-10-05 [facility] 09:39:35 Temperature Oral 2021-10-05 98.4 F [facility] Harpreet rmann (F) 09:38:41 Respitory Rate 2021-10-05 [facility] 06:44:26 Systolic (mm Hg) 2021-10-05 [facility] rmann 06:44:17 Diastolic (mm Hg) 2021-10-05 [facility] 06:44:17 Temperature Oral 2021-10-05 98.7 F [facility] Harpreet rmann (F) 06:42:51 Height 2021-10-03 190.5 cm [facility] Sadi n 12:40:00 Weight 2021-10-03 [facility] 12:40:00 BMI Calculated 2021-10-03 [facility] 12:40:00 Height 2021-10-02 190.5 cm [facility] Sadi n 16:30:00 Weight 2021-10-02 [facility] 16:30:00 BMI Calculated 2021-10-02 [facility] 16:30:00 Systolic (mm Hg) 2021-05-11 [facility] 13:50:00 Diastolic (mm Hg) 2021-05-11 [facility] H ermann 13:50:00 Temperature Oral 2021-05-11 98.5 F [facility] Harpreet rmann (F) 13:50:00 Systolic (mm Hg) 2021-05-11 [facility] 12:22:00 Diastolic (mm Hg) 2021-05-11 [facility] 12:22:00 Systolic (mm Hg) 2021-05-11 [facility] 11:21:00 Diastolic (mm Hg) 2021-05-11 [facility] H ermann 11:21:00 Respitory Rate 2021-05-11 [facility] 11:21:00 Respitory Rate 2021-05-11 [facility] 10:42:00 Respitory Rate 2021-05-11 [facility] Herm faina 09:02:00 Temperature Oral 2021-05-11 98.4 F [facility] Harpreet rmann (F) 08:30:00 Heart Rate 2021-05-11 [facility] Sadi n 06:50:00 Heart Rate 2021-05-11 [facility] Sadi n 06:18:00 Heart Rate 2021-05-11 Magdalene Joyneran n 00:55:00 Temperature Oral 2021-05-11 98.2 F [facility] Harpreet rmann (F) 00:55:00 BP Systolic 2018-10-02 155 mm[Hg] Location: LUE; [facility] 15:26:00 Position: Sitting BP Diastolic 2018-10-02 88 mm[Hg] Location: LUE; [facility] 15:26:00 Position: Sitting Height 2018-10-02 75 [in_us] [facility] 15:26:00 Weight 2018-10-02 302 [lb_av] [facility] 15:26:00 Body Mass Index 2018-10-02 37.75 kg/m2 [facility] Calculated 15:26:00 Temperature 2018-10-02 98 [degF] Method: Oral [facility] 15:26:00 Heart Rate 2018-10-02 63 /min Location: [facility] 15:26:00 Apical; BP Systolic 2018-09-25 154 mm[Hg] Location: LUE; [facility] 10:26:00 Position: Sitting BP Diastolic 2018-09-25 98 mm[Hg] Location: LUE; [facility] 10:26:00 Position: Sitting Heart Rate 2018-09-25 70 /min Quality: Normal [facility] 10:26:00 BP Systolic 2018-09-25 169 mm[Hg] Location: LUE; [facility] 10:25:00 Position: Sitting BP Diastolic 2018-09-25 65 mm[Hg] Location: LUE; [facility] 10:25:00 Position: Sitting Heart Rate 2018-09-25 67 /min Quality: Normal [facility] 10:25:00 Height 2018-09-25 75 [in_us] [facility] 10:25:00 Weight 2018-09-25 295 [lb_av] [facility] 10:25:00 Body Mass Index 2018-09-25 36.87 kg/m2 [facility] Calculated 10:25:00 Temperature 2018-09-25 98.3 [degF] Method: Oral [facility] 10:25:00 O2 SAT 2018-09-25 99 % [facility] 10:25:00 Systolic (mm Hg) 2018-07-10 [facility] 00:00:00 Diastolic (mm Hg) 2018-07-10 [facility] 00:00:00 Respitory Rate 2018-07-10 [facility] 00:00:00 Systolic (mm Hg) 2018-07-09 [facility] 23:45:00 Diastolic (mm Hg) 2018-07-09 [facility] 23:45:00 Respitory Rate 2018-07-09 [facility] 23:45:00 Systolic (mm Hg) 2018-07-09 [facility] 23:30:00 Diastolic (mm Hg) 2018-07-09 [facility] 23:30:00 Respitory Rate 2018-07-09 [facility] 23:30:00 BMI Calculated 2018-07-09 [facility] 18:52:00 Weight 2018-07-09 [facility] Sadi n 18:52:00 Height 2018-07-09 190.5 cm [facility] S[facility] n 18:52:00 BMI Calculated 2018-07-09 [facility] 18:21:00 Height 2018-07-09 190.5 cm [facility] n 18:21:00 Weight 2018-07-09 [facility] 18:21:00 Weight 2018-07-09 [facility] 18:19:00 BMI Calculated 2018-07-09 [facility] 18:19:00 Height 2018-07-09 190.5 cm [facility] 18:19:00 BP Systolic 2018-06-03 136 mm[Hg] Location: [place] [facility] 14:09:00 Position: Sitting BP Diastolic 2018-06-03 75 mm[Hg] Location: [place]; [facility] 14:09:00 Position: Sitting Height 2018-06-03 75 [in_us] [facility] 14:09:00 Weight 2018-06-03 317 [lb_av] [facility] 14:09:00 Body Mass Index 2018-06-03 39.62 kg/m2 [facility] Calculated 14:09:00 Temperature 2018-06-03 97.9 [degF] Method: Oral [facility] 14:09:00 Heart Rate 2018-06-03 74 /min [facility] 14:09:00 Respitory Rate 2018-05-16 [facility] 13:32:00 Systolic (mm Hg) 2018-05-16 [facility] Harpreet rmann 13:32:00 Diastolic (mm Hg) 2018-05-16 [facility] 13:32:00 Heart Rate 2018-05-16 Magdalene Sadi n 13:32:00 Systolic (mm Hg) 2018-05-16 [facility] Harpreet rmann 12:29:00 Diastolic (mm Hg) 2018-05-16 [facility] 12:29:00 Respitory Rate 2018-05-16 [facility] 12:29:00 Heart Rate 2018-05-16 [facility] S[facility] n 12:29:00 Temperature Oral 2018-05-16 98.4 F Magdalene Mullins rmann (F) 12:29:00 Systolic (mm Hg) 2018-05-16 [facility] Harpreet rmann 11:50:00 Diastolic (mm Hg) 2018-05-16 [facility] Richa ermann 11:50:00 Heart Rate 2018-05-16 Magdalene Sadi n 11:50:00 Respitory Rate 2018-05-16 [facility] 11:50:00 Temperature Oral 2018-05-16 98.8 F [facility] Harpreet rmann (F) 10:56:00 Weight 2018-05-16 Magdalene Joyneran n 10:56:00 Procedures Procedure Date / Time Performing Clinician Source Performed REFERRAL- REQUEST/RESPONSE 2021-03-30 05:01:00 Doctor Unassigned , [facility] Myringotomy 2020-10-10 00:00:00 Magdalene jones [U] XRAY KNEE 4 OR MORE 2018-07-24 00:00:00 [facility] VWS RIGHT [id number] Emg/Ncv 2018-06-20 00:00:00 [facility] Sleep Lab - Sleep 2018-06-03 00:00:00 [facility] Study Split Night Ulnar nerve decompression 2015-08-12 00:00:00 Me morial [place] History of Cubital tunnel [facility] repair History of Wrist [facility] of [facility] tooth Memor ial [place] Append[facility] Plan of Care Planned Activity Planned Date Details Comments Source Future Scheduled Test 2022-04-13 HEPATITIS B [facility] 21:38:54 VACCINES (1 of 3 - 3-dose series) [code = HEPATITIS B VACCINES (1 of 3 - 3-dose series)] Future Scheduled Test 2022-04-13 COVID-19 VACCINE [facility] 21:38:54 (#1) [code = COVID-19 VACCINE (#1)] Future Scheduled Test 2022-04-13 INFLUENZA VACCINE [facility] 21:38:54 [code = INFLUENZA VACCINE] Future Scheduled Test 2022-04-13 HEPATITIS B [facility] 21:38:54 VACCINES (1 of 3 - 3-dose series) [code = HEPATITIS B VACCINES (1 of 3 - 3-dose series)] Future Scheduled Test 2022-04-13 COVID-19 VACCINE [facility] 21:38:54 (#1) [code = COVID-19 VACCINE (#1)] Future Scheduled Test 2022-04-13 INFLUENZA VACCINE [facility] 21:38:54 [code = INFLUENZA VACCINE] Future Scheduled Test 2022-04-13 HEPATITIS B [facility] 21:38:54 VACCINES (1 of 3 - 3-dose series) [code = HEPATITIS B VACCINES (1 of 3 - 3-dose series)] Future Scheduled Test 2022-04-13 COVID-19 VACCINE [facility] 21:38:54 (#1) [code = COVID-19 VACCINE (#1)] Future Scheduled Test 2022-04-13 INFLUENZA VACCINE [facility] 21:38:54 [code = INFLUENZA VACCINE] Diagnostic Test 2018-06-20 Emg/Ncv [code = [facility] 00:00:00 Emg/Ncv] Diagnostic Test 2018-06-20 Emg/Ncv [code = [facility] Pending 00:00:00 Emg/Ncv] Future Scheduled Test COVID-19 VACCINE [facility] (1) [code = COVID-19 VACCINE (1)] Future Scheduled Test Hepatitis C [facility] screening (procedure) [code = 191772074] Future Scheduled Test INFLUENZA VACCINE [facility] [code = INFLUENZA VACCINE] Encounters Start End Encounter Admission Attending Care Care Encounter Source Date/Time Date/Time Type Type Clinicians Facility Department ID 2022-04-23 Outpatient [facility] [id number] [place] 18:16:42 [id number] Health 2022-03-20 Outpatient [facility] [id number] [place] 17:49:20 [id number] Health 2021-10-25 [facility] [id number] [facility] 11:23:00 GERONIMO 2021-09-06 Outpatient Vazquez, [facility] [id number] Common 12:12:10 John [id number] [place] 2021-09-06 Outpatient Vazquez, [facility] [id number] Common 12:10:54 John [id number] [place] 2021-09-06 [facility] [id number] Common 12:09:52 John [id number] [place] 2021-09-06 Out[facility], [facility] [id number] Common 11:54:05 John [id number] [place] 2021-09-06 Out[facility] Vaz[facility], [facility] [id number] Common 11:06:57 John [id number] [place] 2021-09-06 Out[facility] [id number] Common 11:06:47 John [id number] [place] 2022-03-14 2022-03-14 Telephone DayNoah EUNICE 6400 [id number] [place] 00:00:00 00:00:00 Alec KING [id number] [facility] [id number] 2021-10-25 2021-10-26 Outpt Diag nullFlavo [facility] [id number] Memoria 18:11:00 04:59:00 Services r Outpatient 01 l Imaging [facility] [place] 2021-10-25 2021-10-25 Outpatient Miguel Angel, MHOIP OIP [id number] 13:11:00 23:59:00 Geronimo D 2021-10-18 2021-10-19 Outpt Diag nullFlavo [facility] [id number] Memoria 17:43:00 05:59:00 Services r Outpatient 00 l Imaging [facility] [place] 2021-10-18 2021-10-18 Outpatient Day, Noah [facility] [id number] 11:43:00 23:59:00 L 00 2021-10-08 2021-10-10 Inpatient [facility] hospital [id number] Memoria 23:43:00 15:48:00 r [place] 58 [facility] 2021-10-08 2021-10-10 Inpatient E DAY, NOAH [facility] 2057 [facility] 19:58:00 09:48:00 2021-10-08 2021-10-10 Outpatient Day, Noah [facility] [id number] 17:43:00 09:48:00 L 58 2021-10-08 2021-10-08 Outpatient Day, Noah [facility] [id number] 17:43:00 17:43:00 L 58 2021-10-03 2021-10-05 Inpatient Critical access hospital [id number] Memoria 11:15:00 16:21:00 r [place] 05 [facility] 2021-10-03 2021-10-05 Outpatient Day, Noah [facility] [id number] 05:15:00 10:21:00 L 05 2021-10-03 2021-10-05 Outpatient Day, Noah [facility] [id number] 05:15:00 10:21:00 L 05 2021-10-03 2021-10-05 Inpatient DAY, NOAH [facility] [address] 05:15:00 10:21:00 2021-09-20 2021-09-20 Telephone Day, Noah [facility] 6400 [id number] [place] 00:00:00 00:00:00 [facility] [id number] [facility] [id number] 2021-05-11 2021-05-11 Emergency [facility] access hospital [id number] [facility] 00:42:19 14:08:00 [place] [place] [facility] 2021-05-10 2021-05-11 Outpatient Corky, [facility] [id number] 19:42:19 09:08:00 Kasi Robin 2021-05-11 2021-05-11 Outpatient STLMLC STLMLC [id number] Common 00:00:00 00:00:00 [place] 2021-04-06 2021-04-06 Outpatient STLMLC STLMLC [id number] Common 00:00:00 00:00:00 [place] 2021-04-06 2021-04-06 Outpatient STLMLC STLMLC [id number] Common 00:00:00 00:00:00 [place] 2021-03-31 2021-03-31 Outpatient STLMLC STLMLC [id number] Common 00:00:00 00:00:00 [place] 2021-03-30 2021-03-30 Orders Doctor AICHA [id number] [facility] 00:00:00 00:00:00 Only Unassigned, ABDULKADIR [id number] ity [facility] [id number] [facility] [phone] [address] 2021-03-30 2021-03-30 Orders Doctor AICHA [id number] 00:00:00 00:00:00 Only Unassigned, ABDULKADIR [id number] [facility] [id number] [facility] 2021-03-21 2021-03-21 Ancillary 1, Gal [facility] [id number] 14:21:34 15:15:15 Visit Audio Sound Y [id number] [facility] [id number] [facility] [id number] DG. 141 2021-03-21 2021-03-[address] [facility] [id number] Univers 14:30:00 14:30:00 [id number] [facility] 2021-03-21 2021-03-21 [facility] [id number] Univers 13:45:00 13:45:00 FABY [facility] 2021-01-17 2021-01-17 Emergency X BARBARA, [facility] ERT [id number] Univers 19:28:00 19:28:00 LAURENCE [facility] 2020-11-21 2020-11-21 Emergency X [facility] ERT [id number] Univers 15:51:00 15:51:[facility] 2020-07-20 Outpatient STLMLC STLMLC [id number] Common 00:00:00 00:00:00 [place] 2020-07-12 2020-07-12 Outpatient STLMLC STLMLC [id number] Common 00:00:00 00:00:00 [place] 2020-05-23 2020-05-23 Outpatient STLMLC STLMLC [id number] Common 00:00:00 00:00:00 [place] 2020-02-24 2020-02-24 [facility] [id number] Common 14:42:00 14:42:[address] [facility] 2020-02-22 2020-02-22 [facility] [id number] Common 13:51:00 13:51:[address] [facility] 2019-12-10 2019-12-10 [facility] [id number] Common 15:39:00 15:39:[address] [facility] 2019-12-08 2019-12-08 Out[facility] [id number] Common 13:40:00 13:40:[address] [facility] 2019-12-07 2019-12-07 Out[facility] [id number] Common 12:05:00 12:05:[address] [facility] 2019-11-16 2019-11-16 [facility] [id number] Common 11:00:00 11:00:00 t [facility] 2019-10-21 2019-10-21 Emergency X Blaire PADRON [facility] ERT [id number] Univers 11:24:16 14:51:00 ity [facility] 2019-09-29 2019-09-29 [facility] [id number] Common 09:21:00 09:21:00 t Bone Bone and Spiri t and Joint [facility] - [facility] 2019-09-21 2019-09-21 [facility] [id number] Common 14:00:00 14:00:00 t Bone Bone and Spiri t and Joint [facility] 2019-03-13 2019-03-13 [facility] [id number] [place] 09:00:00 09:00:00 t; Lesa RODRIGUEZ Ph savannah Roberto M.D. 2018-10-02 2018-10-02 Verito YOUSIF [facility] [id number] [place] 15:00:00 15:00:00 t; Asher JONES i, M.D. ans POURAN, M.D. 2018-09-25 2018-09-25 Verito CEJALa [facility] [id number] [place] 10:30:00 10:30:00 t; BRANT CEJA NP Health and Valery GUO NP Wellness [facility] 2018-09-22 2018-09-22 Verito YOUSIF [facility] [id number] [place] 15:30:00 15:30:00 t; Asher JONES i, M.D. ans POURAN, M.D. 2018-08-22 2018-08-22 Veirto [facility] [id number] [place] 09:30:00 09:30:00 t; Lesa BRYANT Ph savannah Rios M.D. 2018-07-29 2018-07-29 Verito [facility] [id number] [place] 14:30:00 14:30:00 t; Lesa BRYANT Ph savannah Rios M.D. 2018-07-25 2018-07-25 [facility]u [facility] [id number] [place] 10:30:00 10:30:00 t; [facility] 2018-07-22 2018-07-22 [facility] [id number] [place] 11:15:00 11:15:00 t; Lesa BRYANT [facility] TORI, Orthopedics savannah BRYANT M.D. 2018-07-15 2018-07-15 [facility] [id number] [place] 10:30:00 10:30:00 t; Lesa BRYANT [facility] TORI, Orthopedics savannah BRYANT M.D. 2018-07-09 2018-07-10 Day nullFlavo [facility] [id number] Memoria 18:05:00 00:00:00 Surgery r [place] 03 l [facility] Kelly 2018-07-09 2018-07-09 Outpatient Tori, MHSL MHSL [id number] 12:05:00 18:00:00 Migue Campos 2018-07-09 2018-07-09 [facility] [id number] [place] 13:00:00 13:00:00 t; Lesa BRYANT savannah Rios M.D. 2018-06-30 2018-06-30 [facility] [id number] [place] 10:15:00 10:15:00 t; Lesa BRYANT [facility] TORI, Orthopedics savannah BRYANT M.D. 2018-06-24 2018-06-24 Outpatient nullFlavo [facility] [id number] Memoria 00:15:00 05:59:00 r [place] 02 l Armstrong Kelly 2018-06-23 2018-06-23 Outpatient Hincks, MHSL MHSL [id number] 18:15:00 23:59:00 Geovanna Boykin 02 2018-06-20 2018-06-20 [id number] [place] 13:40:00 13:40:00 t; SHANE MONROE [facility] hybeatriz ROTH, Orthopedics a boyd MONROE NP 2018-06-19 2018-06-19 [facility] [id number] [place] 08:15:00 08:15:00 t; GEOVANNA HUERTA D.O. Physici KERRY, ans D.O. 2018-06-17 2018-06-17 [facility] [id number] [place] 15:45:00 15:45:00 t; Lesa BRYANT [facility] Valery VALLE, Orthopedics savannah BRYANT M.D. 2018-06-03 2018-06-03 [facility] [id number] [place] 13:45:00 13:45:00 t; GEOVANNA HUERTA D.O. [facility] savannah Vora D.O. 2018-05-16 2018-05-16 Emergency nullFlavo [facility] [id number] [facility] 10:52:00 13:34:00 chace Cedeño 01 l Armstrong Kelly 2018-05-16 2018-05-16 Outpatient Jose Crenshaw [facility] [id number] 05:52:00 08:34:00 01 Results Test Description Test Time Test Comments Results Result Comments Source CHEM PANEL 2021-10-09 21:33:00 Test Item Value Reference Range Interpretation Comme nts Glucose Lvl (test code = Glucose Lvl) 114 70-99 [facility] [id number] 21:33:00 Test Item Value Reference Range Interpretation Comments BUN (test code = BUN) 14 7-22 [id number] 21:33:00 Test Item Value Reference Range Interpretation Comments Creatinine Lvl (test code = Creatinine 1.36 0.50-1.40 Lvl) [facility] [id number] 21:33:00 Test Item Value Reference Range Interpretation Comments Sodium Lvl (test code = Sodium Lvl) 139 135-145 [facility] [id number] 21:33:00 Test Item Value Reference Range Interpretation Comments Potassium Lvl (test code = Potassium 4.6 3.5-5.1 Lvl) [facility] [id number] 21:33:00 Test Item Value Reference Range Interpretation Comments Chloride Lvl (test code = Chloride Lvl) 104 95-109 [facility] [id number] 21:33:00 Test Item Value Reference Range Interpretation Comments CO2 (test code = CO2) 29 24-32 [facility] [id number] 21:33:00 Test Item Value Reference Range Interpretation Comments Calcium Lvl (test code = Calcium Lvl) 9.3 8.5-10.5 [facility] [id number] 21:33:00 Test Item Value Reference Range Interpretation Comments AGAP (test code = AGAP) 10.6 10.0-20.0 [facility] [id number] 21:33:00 Test Item Value Reference Range Interpretation Comments eGFR (test code = eGFR) 64 [facility]ix[facility]ikNQENFJSECR9179-21-73 21:33:00 Test Item Value Reference Range Interpretation Comments WBC (test code = WBC) 5.9 3.7-10.4 [facility] CenterNuujamiLNINVGSHJN9884-72-73 21:33:00 Test Item Value Reference Range Interpretation Comments RBC (test code = RBC) 4.85 4.70-6.10 [facility] CenterRndcthyYQZJRMCFGR5299-17-55 21:33:00 Test Item Value Reference Range Interpretation Comments Hgb (test code = Hgb) 13.7 14.0-18.0 [facility] CenterEvnllxdLAACGXHNJQ2846-41-67 21:33:00 Test Item Value Reference Range Interpretation Comments Hct (test code = Hct) 41.5 42.0-54.0 [facility] CenterAdtwrwkGQWZQKKOVP1182-45-53 21:33:00 Test Item Value Reference Range Interpretation Comments MCV (test code = MCV) 85.4 80.0-94.0 [facility] CenterHohuvrzDFPKBOENJQ2360-86-60 21:33:00 Test Item Value Reference Range Interpretation Comments MCH (test code = MCH) 28.2 pg 27.0-31.0 [place] 161372-02-28 21:33:00 Test Item Value Reference Range Interpretation Comments MCHC (test code = MCHC) 33.0 32.0-36.0 [place] 161372-02-28 21:33:00 Test Item Value Reference Range Interpretation Comments RDW (test code = RDW) 14.0 11.5-14.5 [facility] CenterCauzezqYFGQHHDVJG8613-46-88 21:33:00 Test Item Value Reference Range Interpretation Comments Platelet (test code = Platelet) 186 133-450 [facility] CenterTynvlunCPKLJTCLMA9437-36-40 21:33:00 Test Item Value Reference Range Interpretation Comments MPV (test code = MPV) 9.1 7.4-10.4 [place] [address]-02-28 21:33:00 Test Item Value Reference Range Interpretation Comments PT (test code = PT) 12.4 s 12.0-14.7 [place] [address]-02-28 21:33:00 Test Item Value Reference Range Interpretation Comments INR (test code = INR) 0.93 1 0.85-1.17 [place] [address]-02-28 21:33:00 Test Item Value Reference Range Interpretation Comments PTT (test code = PTT) 27.8 s 22.9-35.8 [place] [address]-02-28 21:33:00 Test Item Value Reference Range Interpretation Comments Segs (test code = Segs) 73.9 45.0-75.0 [place] [address]-02-28 21:33:00 Test Item Value Reference Range Interpretation Comments Lymphocytes (test code = Lymphocytes) 18.2 20.0-40.0 [place] 161372-02-28 21:33:00 Test Item Value Reference Range Interpretation Comments Monocytes (test code = Monocytes) 3.4 2.0-12.0 [place] [address]-02-28 21:33:00 Test Item Value Reference Range Interpretation Comments Eosinophils (test code = 4.2 See_Comment [A utomated message] The Eosinophils) system which ge nerated this result tra nsmitted reference range : <=4.0. The reference r caleb was not used to int erpret this result as normal/abnormal . [place] [address]-02-28 21:33:00 Test Item Value Reference Range Interpretation Comments Basophils (test code = 0.3 See_Comment [Aut omated message] The Basophils) system which ge nerated this result tra nsmitted reference range : <=1.0. The reference r caleb was not used to int erpret this result as normal/abnormal . [place] [address]-02-28 21:33:00 Test Item Value Reference Range Interpretation Comments Neutrophils # (test code = Neutrophils 4.4 1.5-8.1 #) [place] 161372-02-28 21:33:00 Test Item Value Reference Range Interpretation Comments Lymphocytes # (test code = Lymphocytes 1.1 1.0-5.5 #) [facility] CenterVfczxwsFPVKZDAVBN9335-77-33 21:33:00 Test Item Value Reference Range Interpretation Comments Monocytes # (test code 0.2 See_Comment [Aut omated message] The = Monocytes #) system which generated this result tra nsmitted reference range : <=0.8. The reference r caleb was not used to int erpret this result as normal/abnormal . [facility] CenterEaeekxnFBXWJOWTJJ3654-63-32 21:33:00 Test Item Value Reference Range Interpretation Comments Eosinophils # (test code 0.2 See_Comment [A utomated message] The = Eosinophils #) system whic h generated this result tra nsmitted reference range : <=0.5. The reference r caleb was not used to int erpret this result as normal/abnormal . [facility]2022-02-28 20:31:00 Test Item Value Reference Range Interpretation Comments Glucose CSF (test code = Glucose CSF) 77 45-80 [facility]2022-02-28 20:31:00 Test Item Value Reference Range Interpretation Comments Protein CSF (test code = Protein CSF) 33 15-45 [facility]2022-02-28 20:31:00 Test Item Value Reference Range Interpretation Comments Tube Num CSF (test xxxxxxx (10/09/21 2:31 code = Tube Num CSF) PM) [facility]2022-02-28 20:31:00 Test Item Value Reference Range Interpretation Comments Color CSF (test code Colorless (10/09/21 2:31 = Color CSF) PM) [facility]2022-02-28 20:31:00 Test Item Value Reference Range Interpretation Comments Clarity CSF (test code = Clear (10/09/21 2:31 Clarity CSF) PM) [place] 016802-02-28 20:31:00 Test Item Value Reference Range Interpretation Comments Supernat CSF (test Colorless (10/09/21 2:31 code = Supernat CSF) PM) [place] 016802-02-28 20:31:00 Test Item Value Reference Range Interpretation Comments Nucleated Cells CSF 9 See_Comment [Automa leydi message] The (test code = Nucleated syste m which generated Cells CSF) this result tra nsmitted reference range : <=53. The reference r caleb was not used to int erpret this result as normal/abnormal . [facility] System[facility]fou.[facility] [id number] 20:31:00 Test Item Value Reference Range Interpretation Comments RBC CSF (test code = 280 See_Comment [Autom ated message] The RBC CSF) system which ge nerated this result transmit leydi reference range : <=03. The reference range was not used to interpr et this result as krishna l/abnormal. [facility] [id number] 20:31:00 Test Item Value Reference Range Interpretation Comments Neutrophils CSF (test 64 See_Comment [Auto mated message] The code = Neutrophils CSF) syst em which generated this result tra nsmitted reference range : <=6. The reference r caleb was not used to int erpret this result as normal/abnormal . [facility] [id number] 20:31:00 Test Item Value Reference Range Interpretation Comments Lymph CSF (test code = Lymph CSF) 30 40-80 [facility] [id number] 20:31:00 Test Item Value Reference Range Interpretation Comments Monocyte CSF (test code = Monocyte CSF) 6 15-45 [facility] SystemCulture: Esoiffvsk3097-08-70 20:31:00 Test Item Value Reference Range Interpretation Comments Culture: Anaerobic No Anaerobes Isolated (test code = Culture: After 3 Days Anaerobic) [facility] SystemGram Stain [id number] 20:31:00 Test Item Value Reference Range Interpretation Comments Gram Stain Report Few Wbc'S; No Organisms (test code = Gram Seen Stain Report) [facility] SystemCulture: CSF w/Gram [id number] 20:31:00 Test Item Value Reference Range Interpretation Comments Culture: CSF w/Gram 72 Hour Report - No Stain (test code = Growth, Holding Culture: CSF w/Gram Stain) [facility] [id number] 08:57:00 Test Item Value Reference Range Interpretation Comments Glucose Lvl (test code = Glucose Lvl) 109 70-99 [facility] [id number] 08:57:00 Test Item Value Reference Range Interpretation Comments BUN (test code = BUN) 17 7-22 [facility] [id number] 08:57:00 Test Item Value Reference Range Interpretation Comments Creatinine Lvl (test code = Creatinine 1.28 0.50-1.40 Lvl) [place] 412502-02-28 08:57:00 Test Item Value Reference Range Interpretation Comments Sodium Lvl (test code = Sodium Lvl) 140 135-145 [place] 412502-02-28 08:57:00 Test Item Value Reference Range Interpretation Comments Potassium Lvl (test code = Potassium 3.9 3.5-5.1 Lvl) [place] 412502-02-28 08:57:00 Test Item Value Reference Range Interpretation Comments Chloride Lvl (test code = Chloride Lvl) 108 95-109 [place] 412502-02-28 08:57:00 Test Item Value Reference Range Interpretation Comments CO2 (test code = CO2) 27 24-32 [place] 412502-02-28 08:57:00 Test Item Value Reference Range Interpretation Comments Calcium Lvl (test code = Calcium Lvl) 9.5 8.5-10.5 [place] 412502-02-28 08:57:00 Test Item Value Reference Range Interpretation Comments AGAP (test code = AGAP) 8.9 10.0-20.0 [place] 412502-02-28 08:57:00 Test Item Value Reference Range Interpretation Comments eGFR (test code = eGFR) 69 [place] 161372-02-28 08:57:00 Test Item Value Reference Range Interpretation Comments WBC (test code = WBC) 8.5 3.7-10.4 [place] [address]-02-28 08:57:00 Test Item Value Reference Range Interpretation Comments RBC (test code = RBC) 4.69 4.70-6.10 [place] [address]-02-28 08:57:00 Test Item Value Reference Range Interpretation Comments Hgb (test code = Hgb) 13.3 14.0-18.0 [place] [address]-02-28 08:57:00 Test Item Value Reference Range Interpretation Comments Hct (test code = Hct) 40.4 42.0-54.0 [place] [address]-02-28 08:57:00 Test Item Value Reference Range Interpretation Comments MCV (test code = MCV) 86.1 80.0-94.0 [place] [address]-02-28 08:57:00 Test Item Value Reference Range Interpretation Comments MCH (test code = MCH) 28.3 pg 27.0-31.0 [place] 161372-02-28 08:57:00 Test Item Value Reference Range Interpretation Comments MCHC (test code = MCHC) 32.9 32.0-36.0 [place] 161372-02-28 08:57:00 Test Item Value Reference Range Interpretation Comments RDW (test code = RDW) 14.1 11.5-14.5 [place] 161372-02-28 08:57:00 Test Item Value Reference Range Interpretation Comments Platelet (test code = Platelet) 192 133-450 [place] 161372-02-28 08:57:00 Test Item Value Reference Range Interpretation Comments MPV (test code = MPV) 9.2 7.4-10.4 [place] 161372-02-28 08:57:00 Test Item Value Reference Range Interpretation Comments R-time (test code = R-time) 6.0 min 5.0-10.0 [place] 161372-02-28 08:57:00 Test Item Value Reference Range Interpretation Comments K-time (test code = K-time) 1.4 min 1.0-3.0 [place] 161372-02-28 08:57:00 Test Item Value Reference Range Interpretation Comments Angle (test code = Angle) 69.7 degrees 53.0-72.0 [facility] CenterHosegmlBRFOWPZJWH2606-94-84 08:57:00 Test Item Value Reference Range Interpretation Comments Max Amp (test code = Max Amp) 66.3 mm 50.0-70.0 [facility] CenterOlfwrklQBRHRGAWGQ9802-89-51 08:57:00 Test Item Value Reference Range Interpretation Comments G-value (test code = G-value) 9.8 4.5-11.0 [place] 161372-02-28 08:57:00 Test Item Value Reference Range Interpretation Comments Ly30 (test code = 0.6 See_Comment [Automate d message] The Ly30) system which ge nerated this result transmit leydi reference range : <=7.5. The reference range was not used to interpr et this result as krishna l/abnormal. [facility] CenterRrkyxkmFZZVSHWRVJ7172-89-32 08:57:00 Test Item Value Reference Range Interpretation Comments Coag Index (test code 1.2 1 See_Comment [Auto mated message] The = Coag Index) system which g enerated this result transmit leydi reference range : <=3.0. The reference range was not used to interpr et this result as krishna l/abnormal. [place] [address]-02-28 08:57:00 Test Item Value Reference Range Interpretation Comments TEG Data (test code = See Note (10/09/21 2:57 TEG Data) AM) [place] 161372-02-28 08:57:00 Test Item Value Reference Range Interpretation Comments PT (test code = PT) 12.1 s 12.0-14.7 [place] [address]-02-28 08:57:00 Test Item Value Reference Range Interpretation Comments INR (test code = INR) 0.90 1 0.85-1.17 [place] [address]-02-28 08:57:00 Test Item Value Reference Range Interpretation Comments PTT (test code = PTT) 27.6 s 22.9-35.8 [place] [address]-02-28 08:57:00 Test Item Value Reference Range Interpretation Comments Segs (test code = Segs) 52.0 45.0-75.0 [place] [address]-02-28 08:57:00 Test Item Value Reference Range Interpretation Comments Lymphocytes (test code = Lymphocytes) 33.8 20.0-40.0 [place] [address]-02-28 08:57:00 Test Item Value Reference Range Interpretation Comments Monocytes (test code = Monocytes) 8.0 2.0-12.0 [place] [address]-02-28 08:57:00 Test Item Value Reference Range Interpretation Comments Eosinophils (test code = 5.8 See_Comment [A utomated message] The Eosinophils) system which ge nerated this result tra nsmitted reference range : <=4.0. The reference r caleb was not used to int erpret this result as normal/abnormal . [place] 161372-02-28 08:57:00 Test Item Value Reference Range Interpretation Comments Basophils (test code = 0.4 See_Comment [Aut omated message] The Basophils) system which ge nerated this result tra nsmitted reference range : <=1.0. The reference r caleb was not used to int erpret this result as normal/abnormal . [address]02-28 08:57:00 Test Item Value Reference Range Interpretation Comments Neutrophils # (test code = Neutrophils 4.4 1.5-8.1 #) [address]02-28 08:57:00 Test Item Value Reference Range Interpretation Comments Lymphocytes # (test code = Lymphocytes 2.9 1.0-5.5 #) [place] [address]-02-28 08:57:00 Test Item Value Reference Range Interpretation Comments Monocytes # (test code 0.7 See_Comment [Aut omated message] The = Monocytes #) system which generated this result tra nsmitted reference range : <=0.8. The reference r caleb was not used to int erpret this result as normal/abnormal . [place] [address]-02-28 08:57:00 Test Item Value Reference Range Interpretation Comments Eosinophils # (test code 0.5 See_Comment [A utomated message] The = Eosinophils #) system whic h generated this result tra nsmitted reference range : <=0.5. The reference r caleb was not used to int erpret this result as normal/abnormal . [place] 161372-02-28 08:57:00 Test Item Value Reference Range Interpretation Comments TEG Interp (test Thrombelastograph results code = TEG are within reference ranges. Interp) Note that TEG does not show effect of NSAIDs or P2Y12 inhibitors. CPT:58803 [place] 412502-02-28 02:07:26 Test Item Value Reference Range Interpretation Comments Glucose Lvl (test code = Glucose Lvl) 95 70-99 [place] 412502-02-28 02:07:26 Test Item Value Reference Range Interpretation Comments BUN (test code = BUN) 13 7-22 [place] 412502-02-28 02:07:26 Test Item Value Reference Range Interpretation Comments Creatinine Lvl (test code = Creatinine 1.24 0.50-1.40 Lvl) [place] 412502-02-28 02:07:26 Test Item Value Reference Range Interpretation Comments Sodium Lvl (test code = Sodium Lvl) 140 135-145 [place] 412502-02-28 02:07:26 Test Item Value Reference Range Interpretation Comments Potassium Lvl (test code = Potassium 3.7 3.5-5.1 Lvl) [place] 412502-02-28 02:07:26 Test Item Value Reference Range Interpretation Comments Chloride Lvl (test code = Chloride Lvl) 106 95-109 [place] 412502-02-28 02:07:26 Test Item Value Reference Range Interpretation Comments CO2 (test code = CO2) 30 24-32 [place] 412502-02-28 02:07:26 Test Item Value Reference Range Interpretation Comments Calcium Lvl (test code = Calcium Lvl) 9.5 8.5-10.5 [place] 412502-02-28 02:07:26 Test Item Value Reference Range Interpretation Comments AGAP (test code = AGAP) 7.7 10.0-20.0 [place] 412502-02-28 02:07:26 Test Item Value Reference Range Interpretation Comments eGFR (test code = eGFR) 72 [place] 161372-02-28 02:07:26 Test Item Value Reference Range Interpretation Comments WBC X 10x3 (test code = WBC X 10x3) 7.4 3.7-10.4 [place] 161372-02-28 02:07:26 Test Item Value Reference Range Interpretation Comments RBC X 10x6 (test code = RBC X 10x6) 5.06 4.70-6.10 [place] 161372-02-28 02:07:26 Test Item Value Reference Range Interpretation Comments Hgb (test code = Hgb) 14.0 14.0-18.0 [place] 161372-02-28 02:07:26 Test Item Value Reference Range Interpretation Comments Hct (test code = Hct) 43.5 42.0-54.0 [address]02-28 02:07:26 Test Item Value Reference Range Interpretation Comments MCV (test code = MCV) 85.9 80.0-94.0 [place] 161372-02-28 02:07:26 Test Item Value Reference Range Interpretation Comments MCH (test code = MCH) 27.7 pg 27.0-31.0 [place] 161372-02-28 02:07:26 Test Item Value Reference Range Interpretation Comments MCHC (test code = MCHC) 32.3 32.0-36.0 [place] 161372-02-28 02:07:26 Test Item Value Reference Range Interpretation Comments RDW (test code = RDW) 13.9 11.5-14.5 [place] 161372-02-28 02:07:26 Test Item Value Reference Range Interpretation Comments Platelet (test code = Platelet) 192 133-450 [place] 161372-02-28 02:07:26 Test Item Value Reference Range Interpretation Comments MPV (test code = MPV) 9.1 7.4-10.4 [place] 161372-02-28 02:07:26 Test Item Value Reference Range Interpretation Comments ACT (TEG) Rapid (test code = ACT (TEG) 128 s 86-118 Rapid) [place] 161372-02-28 02:07:26 Test Item Value Reference Range Interpretation Comments Split Point Rapid (test code = Split 0.7 min Point Rapid) [place] 161372-02-28 02:07:26 Test Item Value Reference Range Interpretation Comments R-time Rapid (test code = R-time 0.8 min 0.4-0.7 Rapid) [place] 161372-02-28 02:07:26 Test Item Value Reference Range Interpretation Comments K-time Rapid (test code = K-time 1.1 min 0.6-2.3 Rapid) [place] [address]-02-28 02:07:26 Test Item Value Reference Range Interpretation Comments Angle Rapid (test code = Angle 76 degrees 64-80 Rapid) [place] 161372-02-28 02:07:26 Test Item Value Reference Range Interpretation Comments Max Amplitude Rapid (test code = Max 71 mm 52-71 Amplitude Rapid) [place] [address]-02-28 02:07:26 Test Item Value Reference Range Interpretation Comments G-value Rapid (test code = G-value 12.1 5.0-11.6 Rapid) [place] 161372-02-28 02:07:26 Test Item Value Reference Range Interpretation Comments Estimated % Lysis Rapid 0.8 See_Comment [Au tomated message] The (test code = Estimated syste m which generated % Lysis Rapid) this result t ransmitted reference range : <=7.5. The reference r caleb was not used to int erpret this result as normal/abnormal . [place] 161372-02-28 02:07:26 Test Item Value Reference Range Interpretation Comments PT (test code = PT) 12.5 s 12.0-14.7 [place] [address]-02-28 02:07:26 Test Item Value Reference Range Interpretation Comments INR (test code = INR) 0.94 1 0.85-1.17 [place] [address]-02-28 02:07:26 Test Item Value Reference Range Interpretation Comments PTT (test code = PTT) 29.6 s 22.9-35.8 [place] [address]-02-28 02:07:26 Test Item Value Reference Range Interpretation Comments Segs (test code = Segs) 57.2 45.0-75.0 [place] [address]-02-28 02:07:26 Test Item Value Reference Range Interpretation Comments Lymphocytes (test code = Lymphocytes) 30.9 20.0-40.0 [place] [address]-02-28 02:07:26 Test Item Value Reference Range Interpretation Comments Monocytes (test code = Monocytes) 5.6 2.0-12.0 [place] [address]-02-28 02:07:26 Test Item Value Reference Range Interpretation Comments Eosinophils (test code = 5.6 See_Comment [A utomated message] The Eosinophils) system which ge nerated this result tra nsmitted reference range : <=4.0. The reference r caleb was not used to int erpret this result as normal/abnormal . [place] 161372-02-28 02:07:26 Test Item Value Reference Range Interpretation Comments Basophils (test code = 0.7 See_Comment [Aut omated message] The Basophils) system which ge nerated this result tra nsmitted reference range : <=1.0. The reference r caleb was not used to int erpret this result as normal/abnormal . [place] 161372-02-28 02:07:26 Test Item Value Reference Range Interpretation Comments Neutrophils # (test code = Neutrophils 4.3 1.5-8.1 #) [place] [address]-02-28 02:07:26 Test Item Value Reference Range Interpretation Comments Lymphocytes # (test code = Lymphocytes 2.3 1.0-5.5 #) [facility]ub[facility]qqOAPOVCJVRW4460-78-18 02:07:26 Test Item Value Reference Range Interpretation Comments Monocytes # (test code 0.4 See_Comment [Aut omated message] The = Monocytes #) system which generated this result tra nsmitted reference range : <=0.8. The reference r caleb was not used to int erpret this result as normal/abnormal . [facility] CenterCkffnynQGYZJBLBWF1611-63-38 02:07:26 Test Item Value Reference Range Interpretation Comments Eosinophils # (test code 0.4 See_Comment [A utomated message] The = Eosinophils #) system whic h generated this result tra nsmitted reference range : <=0.5. The reference r caleb was not used to int erpret this result as normal/abnormal . [facility]tsdirhPRBJZLCRYD1276-52-66 02:07:26 Test Item Value Reference Range Interpretation Comments Coronavirus (COVID-19) Not Detected (10/08/21 LIZBETH (test code = 8:07 PM) Coronavirus (COVID-19) LIZBETH) [facility] [id number] 01:55:00 Test Item Value Reference Range Interpretation Comments ABO/Rh (test code = ABO/Rh) O POS [facility] [employer] [facility] [id number] 01:55:00 Test Item Value Reference Range Interpretation Comments Antibody Scrn (test Negative (10/08/21 7:55 code = Antibody Scrn) PM) [facility] [id number] 19:46:00 Test Item Value Reference Range Interpretation Comments Glucose Lvl (test code = Glucose Lvl) 133 70-99 [facility] [id number] 19:46:00 Test Item Value Reference Range Interpretation Comments BUN (test code = BUN) 14 7-22 [facility] [employer] [id number] 19:46:00 Test Item Value Reference Range Interpretation Comments Creatinine Lvl (test code = Creatinine 1.22 0.50-1.40 Lvl) [facility] [id number] 19:46:00 Test Item Value Reference Range Interpretation Comments Sodium Lvl (test code = Sodium Lvl) 138 135-145 [facility] [id number] 19:46:00 Test Item Value Reference Range Interpretation Comments Potassium Lvl (test code = Potassium 4.1 3.5-5.1 Lvl) [place] 412502-02-22 19:46:00 Test Item Value Reference Range Interpretation Comments Chloride Lvl (test code = Chloride Lvl) 108 95-109 [place] 412502-02-22 19:46:00 Test Item Value Reference Range Interpretation Comments CO2 (test code = CO2) 26 24-32 [place] 412502-02-22 19:46:00 Test Item Value Reference Range Interpretation Comments Calcium Lvl (test code = Calcium Lvl) 8.6 8.5-10.5 [place] 412502-02-22 19:46:00 Test Item Value Reference Range Interpretation Comments AGAP (test code = AGAP) 8.1 10.0-20.0 [place] 412502-02-22 19:46:00 Test Item Value Reference Range Interpretation Comments eGFR (test code = eGFR) 73 [facility] CenterEnzokyhRBKYXNNKHS7556-65-01 19:46:00 Test Item Value Reference Range Interpretation Comments WBC (test code = WBC) 6.2 3.7-10.4 [place] 161372-02-22 19:46:00 Test Item Value Reference Range Interpretation Comments RBC (test code = RBC) 4.91 4.70-6.10 [place] 161372-02-22 19:46:00 Test Item Value Reference Range Interpretation Comments Hgb (test code = Hgb) 13.7 14.0-18.0 [place] 161372-02-22 19:46:00 Test Item Value Reference Range Interpretation Comments Hct (test code = Hct) 42.1 42.0-54.0 [place] 161372-02-22 19:46:00 Test Item Value Reference Range Interpretation Comments MCV (test code = MCV) 85.8 80.0-94.0 [place] 161372-02-22 19:46:00 Test Item Value Reference Range Interpretation Comments MCH (test code = MCH) 27.9 pg 27.0-31.0 [place] 161372-02-22 19:46:00 Test Item Value Reference Range Interpretation Comments MCHC (test code = MCHC) 32.6 32.0-36.0 [place] [address]-02-22 19:46:00 Test Item Value Reference Range Interpretation Comments RDW (test code = RDW) 14.3 11.5-14.5 [place] 161372-02-22 19:46:00 Test Item Value Reference Range Interpretation Comments Platelet (test code = Platelet) 153 133-450 [place] 161372-02-22 19:46:00 Test Item Value Reference Range Interpretation Comments MPV (test code = MPV) 9.5 7.4-10.4 [place] 161372-02-22 19:46:00 Test Item Value Reference Range Interpretation Comments PT (test code = PT) 12.2 s 12.0-14.7 [place] 161372-02-22 19:46:00 Test Item Value Reference Range Interpretation Comments INR (test code = INR) 0.91 1 0.85-1.17 [place] 161372-02-22 19:46:00 Test Item Value Reference Range Interpretation Comments PTT (test code = PTT) 27.1 s 22.9-35.8 [place] 161372-02-22 19:46:00 Test Item Value Reference Range Interpretation Comments Plt Morph (test code = Normal (10/03/21 1:46 Plt Morph) PM) [place] 161372-02-22 19:46:00 Test Item Value Reference Range Interpretation Comments Segs (test code = Segs) 83.7 45.0-75.0 [place] 161372-02-22 19:46:00 Test Item Value Reference Range Interpretation Comments Lymphocytes (test code = Lymphocytes) 12.3 20.0-40.0 [place] 161372-02-22 19:46:00 Test Item Value Reference Range Interpretation Comments Monocytes (test code = Monocytes) 1.6 2.0-12.0 [place] 161372-02-22 19:46:00 Test Item Value Reference Range Interpretation Comments Eosinophils (test code = 2.0 See_Comment [A utomated message] The Eosinophils) system which ge nerated this result tra nsmitted reference range : <=4.0. The reference r caleb was not used to int erpret this result as normal/abnormal . [facility] CenterJxqutluLNQFZWZVVM5606-47-85 19:46:00 Test Item Value Reference Range Interpretation Comments Basophils (test code = 0.4 See_Comment [Aut omated message] The Basophils) system which ge nerated this result tra nsmitted reference range : <=1.0. The reference r caleb was not used to int erpret this result as normal/abnormal . [facility] CenterEhwygafXBOHYRSIHU7659-52-55 19:46:00 Test Item Value Reference Range Interpretation Comments Neutrophils # (test code = Neutrophils 5.2 1.5-8.1 #) [facility] CenterRviiahxQFMTIQLXCD8037-40-11 19:46:00 Test Item Value Reference Range Interpretation Comments Lymphocytes # (test code = Lymphocytes 0.8 1.0-5.5 #) [facility] CenterTvemwpxKCROSUPFUU5859-37-63 19:46:00 Test Item Value Reference Range Interpretation Comments Monocytes # (test code 0.1 See_Comment [Aut omated message] The = Monocytes #) system which generated this result tra nsmitted reference range : <=0.8. The reference r caleb was not used to int erpret this result as normal/abnormal . [facility] CenterVqswceqVQQMZGOIJQ6692-53-77 19:46:00 Test Item Value Reference Range Interpretation Comments Eosinophils # (test code 0.1 See_Comment [A utomated message] The = Eosinophils #) system whic h generated this result tra nsmitted reference range : <=0.5. The reference r caleb was not used to int erpret this result as normal/abnormal . [facility] [employer] [facility] [id number] 17:31:00 Test Item Value Reference Range Interpretation Comments ABO/Rh (test code = ABO/Rh) O POS [facility] [id number] 17:31:00 Test Item Value Reference Range Interpretation Comments Antibody Scrn (test Negative (10/02/21 code = Antibody Scrn) 11:31 AM) [facility] [id number] 17:31:00 Test Item Value Reference Range Interpretation Comments Glucose Lvl (test code = Glucose Lvl) 92 70-99 [facility] [id number] 17:31:00 Test Item Value Reference Range Interpretation Comments BUN (test code = BUN) 17 7- [facility] [id number] 17:31:00 Test Item Value Reference Range Interpretation Comments Creatinine Lvl (test code = Creatinine 1.21 0.50-1.40 Lvl) [place] 412502-02-21 17:31:00 Test Item Value Reference Range Interpretation Comments Sodium Lvl (test code = Sodium Lvl) 140 135-145 [place] 412502-02-21 17:31:00 Test Item Value Reference Range Interpretation Comments Potassium Lvl (test code = Potassium 4.2 3.5-5.1 Lvl) [place] 412502-02-21 17:31:00 Test Item Value Reference Range Interpretation Comments Chloride Lvl (test code = Chloride Lvl) 108 95-109 [place] 412502-02-21 17:31:00 Test Item Value Reference Range Interpretation Comments CO2 (test code = CO2) 26 24-32 [place] 412502-02-21 17:31:00 Test Item Value Reference Range Interpretation Comments Calcium Lvl (test code = Calcium Lvl) 9.4 8.5-10.5 [place] 412502-02-21 17:31:00 Test Item Value Reference Range Interpretation Comments AGAP (test code = AGAP) 10.2 10.0-20.0 [place] 412502-02-21 17:31:00 Test Item Value Reference Range Interpretation Comments eGFR (test code = eGFR) 74 [place] 161372-02-21 17:31:00 Test Item Value Reference Range Interpretation Comments PTT (test code = PTT) 28.1 s 22.9-35.8 [place] [address]-02-21 17:31:00 Test Item Value Reference Range Interpretation Comments PT (test code = PT) 11.8 s 12.0-14.7 [place] [address]-02-21 17:31:00 Test Item Value Reference Range Interpretation Comments INR (test code = INR) 0.87 1 0.85-1.17 [place] [address]-02-21 17:31:00 Test Item Value Reference Range Interpretation Comments WBC (test code = WBC) 5.4 3.7-10.4 [place] [address]-02-21 17:31:00 Test Item Value Reference Range Interpretation Comments RBC (test code = RBC) 4.90 4.70-6.10 [place] [address]-02-21 17:31:00 Test Item Value Reference Range Interpretation Comments Hgb (test code = Hgb) 13.7 14.0-18.0 [place] 161372-02-21 17:31:00 Test Item Value Reference Range Interpretation Comments Hct (test code = Hct) 42.0 42.0-54.0 [place] 161372-02-21 17:31:00 Test Item Value Reference Range Interpretation Comments MCV (test code = MCV) 85.6 80.0-94.0 [place] 161372-02-21 17:31:00 Test Item Value Reference Range Interpretation Comments MCH (test code = MCH) 27.9 pg 27.0-31.0 [place] 161372-02-21 17:31:00 Test Item Value Reference Range Interpretation Comments MCHC (test code = MCHC) 32.6 32.0-36.0 [place] 161372-02-21 17:31:00 Test Item Value Reference Range Interpretation Comments RDW (test code = RDW) 14.1 11.5-14.5 [place] 161372-02-21 17:31:00 Test Item Value Reference Range Interpretation Comments Platelet (test code = Platelet) 173 133-450 [place] 161372-02-21 17:31:00 Test Item Value Reference Range Interpretation Comments MPV (test code = MPV) 10.1 7.4-10.4 [place] 161372-02-21 17:31:00 Test Item Value Reference Range Interpretation Comments Segs (test code = Segs) 54.1 45.0-75.0 [place] 161372-02-21 17:31:00 Test Item Value Reference Range Interpretation Comments Lymphocytes (test code = Lymphocytes) 30.9 20.0-40.0 [place] [address]-02-21 17:31:00 Test Item Value Reference Range Interpretation Comments Monocytes (test code = Monocytes) 6.7 2.0-12.0 [place] 161372-02-21 17:31:00 Test Item Value Reference Range Interpretation Comments Eosinophils (test code = 7.7 See_Comment [A utomated message] The Eosinophils) system which ge nerated this result tra nsmitted reference range : <=4.0. The reference r caleb was not used to int erpret this result as normal/abnormal . [facility] CenterBywwnuoPJAHWBGQNL5627-82-04 17:31:00 Test Item Value Reference Range Interpretation Comments Basophils (test code = 0.6 See_Comment [Aut omated message] The Basophils) system which ge nerated this result tra nsmitted reference range : <=1.0. The reference r caleb was not used to int erpret this result as normal/abnormal . [facility] CenterHqxyzuxRXFZYUKRRS9494-22-76 17:31:00 Test Item Value Reference Range Interpretation Comments Neutrophils # (test code = Neutrophils 2.9 1.5-8.1 #) [facility] CenterEtvdayoGECEENLDXO2717-47-46 17:31:00 Test Item Value Reference Range Interpretation Comments Lymphocytes # (test code = Lymphocytes 1.7 1.0-5.5 #) [facility] CenterCpabwdiBZGMLIPDQI9734-72-09 17:31:00 Test Item Value Reference Range Interpretation Comments Monocytes # (test code 0.4 See_Comment [Aut omated message] The = Monocytes #) system which generated this result tra nsmitted reference range : <=0.8. The reference r caleb was not used to int erpret this result as normal/abnormal . [facility] CenterVyhotlgCFXRJDZYPU1196-99-97 17:31:00 Test Item Value Reference Range Interpretation Comments Eosinophils # (test code 0.4 See_Comment [A utomated message] The = Eosinophils #) system whic h generated this result tra nsmitted reference range : <=0.5. The reference r caleb was not used to int erpret this result as normal/abnormal . [facility] SystemAptznfeTDXOGWNCRX4254-15-85 17:31:00 Test Item Value Reference Range Interpretation Comments Coronavirus (COVID-19) Not Detected (10/02/21 LIZBETH (test code = 11:31 AM) Coronavirus (COVID-19) LIZBETH) [facility] [id number] 17:31:00 Test Item Value Reference Range Interpretation Comments Hgb A1C (test code = Hgb A1C) 5.7 [facility] CenterSmzfaksYGCNKUNHGE5081-22-17 07:37:00 Test Item Value Reference Range Interpretation Comments Sed Rate (test code = 2 See_Comment [Auto mated message] The Sed Rate) system which ge nerated this result transmit leydi reference range : <=15. The reference range was not used to interpr et this result as krishna l/abnormal. [facility] SystemTtvwaclRQJQIWXUJY8636-67-12 07:37:00 Test Item Value Reference Range Interpretation Comments C-REACTIVE PROTEIN (test code = 8.4 C-REACTIVE PROTEIN) [place] 412501-09-30 01:10:00 Test Item Value Reference Range Interpretation Comments Glucose Lvl (test code = Glucose Lvl) 115 70-99 [place] 412501-09-30 01:10:00 Test Item Value Reference Range Interpretation Comments BUN (test code = BUN) 13 7-22 [place] 412501-09-30 01:10:00 Test Item Value Reference Range Interpretation Comments Creatinine Lvl (test code = Creatinine 1.21 0.50-1.40 Lvl) [place] 412501-09-30 01:10:00 Test Item Value Reference Range Interpretation Comments Sodium Lvl (test code = Sodium Lvl) 141 135-145 [place] 412501-09-30 01:10:00 Test Item Value Reference Range Interpretation Comments Potassium Lvl (test code = Potassium 3.8 3.5-5.1 Lvl) [place] 412501-09-30 01:10:00 Test Item Value Reference Range Interpretation Comments Chloride Lvl (test code = Chloride Lvl) 110 95-109 [place] 412501-09-30 01:10:00 Test Item Value Reference Range Interpretation Comments CO2 (test code = CO2) 25 24-32 [place] 412501-09-30 01:10:00 Test Item Value Reference Range Interpretation Comments Calcium Lvl (test code = Calcium Lvl) 9.1 8.5-10.5 [place] 412501-09-30 01:10:00 Test Item Value Reference Range Interpretation Comments AGAP (test code = AGAP) 9.8 10.0-20.0 [place] 412501-09-30 01:10:00 Test Item Value Reference Range Interpretation Comments eGFR (test code = eGFR) 74 [place] 161371-09-30 01:10:00 Test Item Value Reference Range Interpretation Comments WBC X 10x3 (test code = WBC X 10x3) 5.9 3.7-10.4 [place] 161371-09-30 01:10:00 Test Item Value Reference Range Interpretation Comments RBC X 10x6 (test code = RBC X 10x6) 4.92 4.70-6.10 [facility] CenterSkojzynPEGKVGHVXA9826-29-86 01:10:00 Test Item Value Reference Range Interpretation Comments Hgb (test code = Hgb) 13.8 14.0-18.0 [place] 161371-09-30 01:10:00 Test Item Value Reference Range Interpretation Comments Hct (test code = Hct) 41.8 42.0-54.0 [place] 161371-09-30 01:10:00 Test Item Value Reference Range Interpretation Comments MCV (test code = MCV) 84.9 80.0-94.0 [facility] CenterMtveukvQIRZWGOPYJ1893-66-02 01:10:00 Test Item Value Reference Range Interpretation Comments MCH (test code = MCH) 28.0 pg 27.0-31.0 [facility] CenterPxqyukgEFLIAMOPQT5428-37-80 01:10:00 Test Item Value Reference Range Interpretation Comments MCHC (test code = MCHC) 33.0 32.0-36.0 [facility] CenterQzlcdtfTZSJAAHXVY7950-38-75 01:10:00 Test Item Value Reference Range Interpretation Comments RDW (test code = RDW) 14.0 11.5-14.5 [facility] CenterXjdypyhZDQDQUPZCW4131-48-39 01:10:00 Test Item Value Reference Range Interpretation Comments Platelet (test code = Platelet) 171 133-450 [facility] CenterVpgmllpHXFIODCOOP9406-46-05 01:10:00 Test Item Value Reference Range Interpretation Comments MPV (test code = MPV) 8.8 7.4-10.4 [facility] CenterSpuzwqxYHGLTQSIUM1105-39-63 01:10:00 Test Item Value Reference Range Interpretation Comments Segs (test code = Segs) 42.2 45.0-75.0 [place] 161371-09-30 01:10:00 Test Item Value Reference Range Interpretation Comments Lymphocytes (test code = Lymphocytes) 37.9 20.0-40.0 [place] 161371-09-30 01:10:00 Test Item Value Reference Range Interpretation Comments Monocytes (test code = Monocytes) 7.0 2.0-12.0 [facility] CenterZbksfauLCIOLTXEOK1223-98-44 01:10:00 Test Item Value Reference Range Interpretation Comments Eosinophils (test code = 11.6 See_Comment [A utomated message] The Eosinophils) system which ge nerated this result tra nsmitted reference range : <=4.0. The reference r caleb was not used to int erpret this result as normal/abnormal . [facility] CenterMtmbqyqMEYECCHYVR4564-50-93 01:10:00 Test Item Value Reference Range Interpretation Comments Basophils (test code = 1.3 See_Comment [Aut omated message] The Basophils) system which ge nerated this result tra nsmitted reference range : <=1.0. The reference r caleb was not used to int erpret this result as normal/abnormal . [facility] CenterDhmcodcPAGBVDIPCE0757-74-64 01:10:00 Test Item Value Reference Range Interpretation Comments Neutrophils # (test code = Neutrophils 2.5 1.5-8.1 #) [facility] CenterStieikwCGTCJECTGF3683-27-15 01:10:00 Test Item Value Reference Range Interpretation Comments Lymphocytes # (test code = Lymphocytes 2.2 1.0-5.5 #) [facility] CenterEbzhvhsRGSPBMYDLK2279-97-34 01:10:00 Test Item Value Reference Range Interpretation Comments Monocytes # (test code 0.4 See_Comment [Aut omated message] The = Monocytes #) system which generated this result tra nsmitted reference range : <=0.8. The reference r caleb was not used to int erpret this result as normal/abnormal . [facility] CenterGtuineoNSQOWGEVCS7712-03-85 01:10:00 Test Item Value Reference Range Interpretation Comments Eosinophils # (test code 0.7 See_Comment [A utomated message] The = Eosinophils #) system whic h generated this result tra nsmitted reference range : <=0.5. The reference r caleb was not used to int erpret this result as normal/abnormal . [facility] CenterMrhabgaCCLWPLVZVD5428-03-46 01:10:00 Test Item Value Reference Range Interpretation Comments Basophils # (test code 0.1 See_Comment [Aut omated message] The = Basophils #) system which generated this result tra nsmitted reference range : <=0.2. The reference r caleb was not used to int erpret this result as normal/abnormal . [facility]2018-11-27 18:20:00 Test Item Value Reference Range Interpretation Comments eGFR (test code = eGFR) 90 [facility]2018-11-27 18:20:00 Test Item Value Reference Range Interpretation Comments AGAP (test code = AGAP) 4.2 10.0-20.0 [facility]2018-11-27 18:20:00 Test Item Value Reference Range Interpretation Comments Calcium Lvl (test code = Calcium Lvl) 8.6 8.5-10.5 [facility]2018-11-27 18:20:00 Test Item Value Reference Range Interpretation Comments CO2 (test code = CO2) 30 24-32 [facility]2018-11-27 18:20:00 Test Item Value Reference Range Interpretation Comments Chloride Lvl (test code = Chloride Lvl) 109 95-109 [facility]2018-11-27 18:20:00 Test Item Value Reference Range Interpretation Comments Potassium Lvl (test code = Potassium 4.2 3.5-5.1 Lvl) [facility]2018-11-27 18:20:00 Test Item Value Reference Range Interpretation Comments Sodium Lvl (test code = Sodium Lvl) 139 135-145 [facility]2018-11-27 18:20:00 Test Item Value Reference Range Interpretation Comments Glucose Lvl (test code = Glucose Lvl) 111 70-99 [facility]2018-11-27 18:20:00 Test Item Value Reference Range Interpretation Comments BUN (test code = BUN) 18 7-22 [facility]2018-11-27 18:20:00 Test Item Value Reference Range Interpretation Comments Creatinine Lvl (test code = Creatinine 1.18 0.50-1.40 Lvl) [facility][U] XRAY ELBOW 2 VWS RIGHT [id number] 15:57:00Images acquired, not reported on this accession number.[facility][U] XRAY WRIST MIN 3 VWS RIGHT [id number] 15:57:00Images acquired, not reported on this accession number[facility]
--- NOTE | 2022-05-12 02:12 | EDPHYS ---
Physician Documentation [facility] – [place], [place] Name: Terry Akins Sr Age: 41 yrs Sex: Male : 1980 Arrival Date: 05/12/2022 Time: 01:09 Bed 16 Private MD: NIKOLAS Physician Talon Whitt HPI: 05/12 02:06 This 41 yrs old Black Male presents to ER via Ambulatory with complaints of Headache. sin 02:06 The patient complains of pain to the left ear and left base of the skull. The patient sin describes the headache as aching, constant. Onset: The symptoms/episode began/occurred 2 day(s) ago. Associated signs and symptoms: The patient has no apparent associated signs or symptoms. Severity of symptoms: At its worst the pain was moderate, in the emergency department the pain is unchanged. Headache History: The patient has had previous headaches and this one is similar to previous episodes. The symptoms are alleviated by nothing. the symptoms are aggravated by nothing. The patient has not experienced similar symptoms in the past. Historical: - Allergies: 01:23 No Known Allergies; tw5 - PMHx: :23 Hypertensive disorder; Migraine; tw5 - PSHx: 01:23 Appendectomy; carpal tunnel right; hernia; left hand tendonitis; Nerve transplantion; tw5 shunt; - Immunization history:: Flu vaccine is not up to date. - Social history:: Smoking status: Reported history of juuling and/or vaping. - Family history:: not pertinent. ROS: 02:06 Constitutional: Negative for fever, chills, and weight loss, Eyes: Negative for injury, sin pain, redness, and discharge, ENT: Negative for injury, pain, and discharge, Neck: Negative for injury, pain, and swelling, Cardiovascular: Negative for chest pain, palpitations, and edema, Respiratory: Negative for shortness of breath, cough, wheezing, and pleuritic chest pain, Abdomen/GI: Negative for abdominal pain, nausea, vomiting, diarrhea, and constipation, Back: Negative for injury and pain, : Negative for injury, bleeding, discharge, and swelling, MS/Extremity: Negative for injury and deformity, Skin: Negative for injury, rash, and discoloration, Psych: Negative for depression, anxiety, suicide ideation, homicidal ideation, and hallucinations, Allergy/Immunology: Negative for hives, rash, and allergies, Endocrine: Negative for neck swelling, polydipsia, polyuria, polyphagia, and marked weight changes, Hematologic/Lymphatic: Negative for swollen nodes, abnormal bleeding, and unusual bruising. 02:06 Neuro: Positive for headache, of the pinna of left ear and left mastoid area. Exam: 02:06 Constitutional: This is a well developed, well nourished patient who is awake, alert, sin and in no acute distress. Head/Face: Normocephalic, atraumatic. Eyes: Pupils equal round and reactive to light, extra-ocular motions intact. Lids and lashes normal. Conjunctiva and sclera are non-icteric and not injected. Cornea within normal limits. Periorbital areas with no swelling, redness, or edema. Neck: Trachea midline, no thyromegaly or masses palpated, and no cervical lymphadenopathy. Supple, full range of motion without nuchal rigidity, or vertebral point tenderness. No Meningismus. Chest/axilla: Normal chest wall appearance and motion. Nontender with no deformity. No lesions are appreciated. Cardiovascular: Regular rate and rhythm with a normal S1 and S2. No gallops, murmurs, or rubs. Normal PMI, no JVD. No pulse deficits. Respiratory: Lungs have equal breath sounds bilaterally, clear to auscultation and percussion. No rales, rhonchi or wheezes noted. No increased work of breathing, no retractions or nasal flaring. Abdomen/GI: Soft, non-tender, with normal bowel sounds. No distension or tympany. No guarding or rebound. No evidence of tenderness throughout. Back: No spinal tenderness. No costovertebral tenderness. Full range of motion. Male : Normal genitalia with no discharge or lesions. Skin: Warm, dry with normal turgor. Normal color with no rashes, no lesions, and no evidence of cellulitis. MS/ Extremity: Pulses equal, no cyanosis. Neurovascular intact. Full, normal range of motion. Neuro: Awake and alert, GCS 15, oriented to person, place, time, and situation. Cranial nerves II-XII grossly intact. Motor strength 5/5 in all extremities. Sensory grossly intact. Cerebellar exam normal. Normal gait. Psych: Awake, alert, with orientation to person, place and time. Behavior, mood, and affect are within normal limits. 02:06 ENT: left mastoid tenderness. Vital Signs: 01:21 BP 165 / 101; Pulse 85; Resp 18; Temp 98.7; Pulse Ox 99% on R/A; Weight 145.15 kg; tw5 Height 6 ft. 3 in. (190.50 cm); Pain 10/10; 03:00 BP 134 / 73; Pulse 76; Resp 17; Temp 98.6; Pulse Ox 99% ; Pain 7/10; ke1 03:07 Pain 3/10; ke1 01:21 Body Mass Index 40.00 (145.15 kg, 190.50 cm) tw5 [place] Coma Score: 02:09 Eye Response: spontaneous(4). Verbal Response: oriented(5). Motor Response: obeys sin commands(6). Total: 15. MDM: 01:34 Patient medically screened. sin 02:09 Differential diagnosis: cluster headache, hyponatremia, intracerebral hemorrhage, sin meningitis, migraine, neoplasm, sinusitis, subdural hematoma, temporal arteritis, tension headache, vasomotor headache. Data reviewed: vital signs, nurses notes, lab test result(s), radiologic studies, MRI. Data interpreted: classroom monitor: rate is 85 beats/min, Pulse oximetry: on room air is 99 %. Counseling: I had a detailed discussion with the patient and/or guardian regarding: the historical points, exam findings, and any diagnostic results supporting the discharge/admit diagnosis, lab results. 05/12 02:06 Order name: CBC with Diff [facility] 05/12 02:06 Order name: Comprehensive Metabolic Panel [facility] 05/12 02:06 Order name: SARS RAPID [facility] 05/12 02:44 Order name: SARS-COV-2 Antigen Rapid; Complete Time: 03:09 EDWV 05/12 02:46 Order name: CBC with Automated Diff; Complete Time: 03:09 EDMS 05/12 03:06 Order name: Comprehensive Metabolic Panel; Complete Time: 03:09 EDMS Administered Medications: 02:52 Drug: Dilaudid (HYDROmorphone) 1 mg Route: IVP; Site: left hand; ke1 03:07 Follow up: Pain 3/10 Adult; Response: Pain is decreased ke1 02:52 Drug: Zofran (Ondansetron) 4 mg Route: IVP; Site: left hand; ke1 03:07 Follow up: Response: Nausea is decreased ke1 03:33 Drug: Dilaudid (HYDROmorphone) 1 mg Route: IVP; Site: left hand; ke1 03:38 Follow up: Response: Medication administered at discharge. 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
--- NOTE | 2022-05-12 02:12 | ER ---
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 It is causing my head hurt and my earing is muffled. I was in here already this morning, they told me to come back if it got worse, and it got worse.". Coronavirus screen: Vaccine status: Patient reports receiving the 2nd dose of the covid vaccine. [employer]. Ebola Screen: Patient negative for fever greater than or equal to 101.5 degrees Fahrenheit, and additional compatible Ebola Virus Disease symptoms Patient denies exposure to infectious person. Patient denies travel to an Ebola-affected area in the 21 days before illness onset. Initial Sepsis Screen: Does the patient meet any 2 criteria? No. Patient's initial sepsis screen is negative. Does the patient have a suspected source of infection? No. Patient's initial sepsis screen is negative. Risk Assessment: Do you want to hurt yourself or someone else? Patient reports no desire to harm self or others. Onset of symptoms was May 11, 2022. 01:21 Method Of Arrival: Ambulatory tw5 01:21 Acuity: SARITHA 3 tw5 Triage Assessment: 01:23 Headache History: The patient has had previous headaches. General: Appears in no tw5 apparent distress. Behavior is calm, cooperative. Pain: Pain currently is 10 out of 10 on a pain scale. Pain began gradually, Also complains of photophobia. Neuro: Level of Consciousness is awake, alert, obeys commands, Oriented to person, place, time, situation. Historical: - Allergies: : No Known Allergies; tw5 - PMHx: : Hypertensive disorder; Migraine; tw5 - PSHx: :23 Appendectomy; carpal tunnel right; hernia; left hand tendonitis; Nerve transplantion; tw5 shunt; - Immunization history:: Flu vaccine is not up to date. - Social history:: Smoking status: Reported history of juuling and/or vaping. - Family history:: not pertinent. Screenin:00 Abuse screen: Denies threats or abuse. Nutritional screening: No deficits noted. ke1 Tuberculosis screening: No symptoms or risk factors identified. Fall Risk None identified. Assessment: 02:59 Reassessment: report given to Matilda CLEMENTE. ke1 03:20 Pain: Pain currently is 7 out of 10 on a pain scale. ke1 Vital Signs: 01:21 BP 165 / 101; Pulse 85; Resp 18; Temp 98.7; Pulse Ox 99% on R/A; Weight 145.15 kg; tw5 Height 6 ft. 3 in. (190.50 cm); Pain 10/10; 03:00 BP 134 / 73; Pulse 76; Resp 17; Temp 98.6; Pulse Ox 99% ; Pain 7/10; ke1 03:07 Pain 3/10; ke1 01:21 Body Mass Index 40.00 (145.15 kg, 190.50 cm) tw5 [place] Coma Score: 02:09 Eye Response: spontaneous(4). Verbal Response: oriented(5). Motor Response: obeys sin commands(6). Total: 15. ED Course: 01:09 Patient arrived in ED. bp1 01:23 Triage completed. tw5 01:23 Arm band placed on. tw5 01:34 Talon Whitt MD is Attending Physician. sin 01:38 Carina Lomeli RN is Primary Nurse. ke1 02:00 Placed in gown. Bed in low position. ke1 02:20 Dr Whitt initiated transfer of Pt to [facility], spoke with Rangel Reyes. wm 02:39 Pt accepted for transfer to [facility] ER by Dr. Glory Cullen per Rangel Reyes. wm 02:51 Inserted saline lock: 22 gauge in left hand, using aseptic technique. ke1 03:41 No provider procedures requiring assistance completed. Patient transferred, IV remains ke1 in place. Administered Medications: 02:52 Drug: Dilaudid (HYDROmorphone) 1 mg Route: IVP; Site: left hand; ke1 03:07 Follow up: Pain 3/10 Adult; Response: Pain is decreased ke1 02:52 Drug: Zofran (Ondansetron) 4 mg Route: IVP; Site: left hand; ke1 03:07 Follow up: Response: Nausea is decreased ke1 03:33 Drug: Dilaudid (HYDROmorphone) 1 mg Route: IVP; Site: left hand; ke1 03:38 Follow up: Response: Medication administered at discharge. ke1 03:34 Drug: Rocephin (cefTRIAXone) 2 grams Route: IV; Rate: per protocol; Site: left hand; ke1 03:38 Follow up: Response: No adverse reaction ke1 03:40 Follow up: IV Status: Completed infusion ke1 Medication: 03:41 VIS not applicable for this client. ke1 Outcome: 02:12 ER care complete, transfer ordered by MD. vogt 03:41 Transferred by ground EMS to [facility]. ke1 03:41 Condition: good 03:41 Instructed on the need for transfer. 03:42 Patient left the ED. ke1 Signatures: Talon Whitt MD MD cha [place], Brittany bp1 Marsh, Wendy wm Wood, Tiffany [facility] Carina Lomeli, BRYN RN ke1
[2022-05-12] MEDS ORDERED: ONDANSETRON 4 MG/2 ML VIAL ONE (02:17)
[2022-05-12] MEDS ORDERED: HYDROMORPHONE HCL 1 MG/ML INJ ONE ×2 (02:17→03:26)
[2022-05-12 02:44] LABS: SARS-CoV-2 Antigen Rapid Res Negative (Negative)
[2022-05-12 02:45] LABS: Absolute Lymphocytes (CBC) 1.5 K/uL (0.7-4.9); Hematocrit 39.6 % (39.6-49.0); Lymphocytes % 10.7 % (15.3-44.8); MCV 84.1 fL (80-100); MPV 9.2 fL (7.6-11.3); RBC Red Blood Cell Count 4.71 M/uL (4.33-5.43)
[2022-05-12 03:05] LABS: Albumin 3.5 g/dL (3.4-5.0); Bilirubin Total 0.4 mg/dL (0.2-1.0); Protein, Total 7.2 g/dL (6.4-8.2)
[2022-05-12 03:06] LABS: Potassium 4.5 mmol/L (3.5-5.1)
[2022-05-12] MEDS ORDERED: CEFTRIAXONE 2000 MG/VIAL ONE (03:26)
[2022-05-12 12:58] VITALS: O2SAT 99
[2022-05-12 13:09] VITALS: BP 134/73; TEMP 98.6
== END 2022-05-12 03:42 | disposition short-term general hospital (02) ==
LOC: ER 01:05
DX: R51.9 Headache, unspecified (principal); H70.009 Acute mastoiditis without complications, unspecified ear; Z20.822 Contact with and (suspected) exposure to COVID-19; D72.829 Elevated white blood cell count, unspecified; I10 Essential (primary) hypertension; Z98.2 Presence of cerebrospinal fluid drainage device
CPT/HCPCS: 85025; 36415; 80053; 96375; 96374; 99285; 87811; J1170 ×2; J2405; J0696

== ENCOUNTER 2022-05-14 11:44 | Emergency (ER) | payer OTHER ==
--- OUTSIDE RECORDS SUMMARY | 2022-05-14 11:49 | XMS REPORT | Continuity of Care Document ---
:1980 Author Organization [facility] t Address [address] [place] [address] Care Team Providers Name Role Phone Lennysukumar Antonia SANTANAry Primary Care Physician GERONIMO MICHELLE Attending Clinician Unavailable John Vazquez Attending Clinician Unavailable SONIA ROBERTS Attending Clinician Unavailable Noah Osorio MD Attending Clinician NOAH OSORIO Attending Clinician Unavailable Doctor Unassigned, [place] Attending Clinician Unavailable [employer] Attending Clinician Unavailable FABY MULLER Attending Clinician Unavailable LAURENCE JIMENEZ Attending Clinician Unavailable Blaire PADRON Attending Clinician Unavailable MICHAEL LICONA M.D. Attending Clinician Unavailable ROBERT YOUSIF M.D. Attending Clinician Unavailable BRANT CEJA NP Attending Clinician Unavailable ANNETTE MUNOZ M.D. Attending Clinician Unavailable LORENZA SCHMITT M.D. Attending Clinician Unavailable FER ROTH NP Attending Clinician Unavailable GEOVANNA HUERTA D.O. Attending Clinician Unavailable JUSTO NOGUEIRA Admitting Clinician Unavailable DEVON, NOAH L Admitting Clinician Unavailable Blaire PADRON Admitting Clinician Unavailable Payers Payer Name Policy Policy Number Effective Expiration Source Type Date Date [facility] MEDICAID STAR [id number] 2018 00:00:00 [facility] [id number] 2019 [facility] 00:00:00 [place] [facility] MEDICAIDCOMMUNITY Branch HEALTH CHOICE [id number]/2019-PresentP.[address]. 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 Diagnosis Active 2021-10-26 Memoria MALF MALF 10-08 18:20:00 l Active 00:00: Williams 10/08/2021 00 [facility] G96.00 G96.00 Diagnosis Active 2021-10-26 M emoria Active 09-28 18:20:00 l 09/28/2021 00:00: Sadi gresham [address] MD LOJA Diagnosis Active 2021-05-10 Mem oria REFERRAL/ REFERRAL/ 05-10 20:33:00 l FLUIDS FLUIDS 00:00: Davidson LEAKING LEAKING 00 FROM EAR FROM EAR Active 05/10/2021 [facility] CSF CSF Disease Active [facility] otorrhea otorrhea 05-09 Health 00:00: 00 Syncope Syncope Disease Active 2017-[facility] 00 l No known No known Disease Unive rs active active ity of problems problems [facility] Cubital Cubital Problem Active [facility] tunnel tunnel [...] vomiting Physic i ans Lesion of Lesion Problem 2019-01-26 Memoria ulnar of ulnar 15:19:24 l nerve, nerve, Davidson right right upper limb upper limb 01/26/2019 [place] Unspecifie Unspecifi Problem 2019-01-26 Memoria d ed 15:19:24 l osteoarthr osteoarthr He jose alfredo itis, itis, unspecifie unspecifie d site d site 01/26/2019 [place] Sleep Sleep Problem 2019-01-26 Memor ia apnea, apnea, 15:19:24 l unspecifie unspecifie He jose alfredo d d 01/26/2019 [place] Unspecifie Unspecifi Problem 2019-01-26 Memoria d asthma, ed asthma, 15:19:24 l uncomplica uncomplica He jose alfredo holley leydi 01/26/2019 [place] Anxiety Anxiety Problem 2019-01-26 Me moria disorder, disorder, 15:19:24 l unspecifie unspecifie He rmann d d 01/26/2019 [place] Gastro-eso Gastro-es Problem 2019-01-26 Memoria phageal ophageal 15:19:24 l reflux reflux Williams disease disease without without esophagiti esophagiti s s 01/26/2019 [place] Essential Essential Problem 2019-01-26 Memoria (primary) (primary) 15:19:24 l hypertensi hypertensi He rmann on on 01/26/2019 [place] Personal Personal Problem 2019-01-26 Memoria history of history of 15:19:24 l nicotine nicotine Sadi n dependence dependence 01/26/2019 [place] Allergy Allergy Problem 2019-01-26 Me moria status to status to 15:19:24 l analgesic analgesic Herm faina agent agent status status 01/26/2019 [place] 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 Memoria (current) (current) 15:19:24 l use of use of Williams non-steroi non-steroi siddharth siddharth anti-infla anti-infla mmatories mmatories (NSAID) (NSAID) 01/26/2019 [place] Dependence Dependenc Problem 2019-01-26 Memoria on other e on other 15:19:24 l enabling enabling Sadi n machines machines and and devices devices 01/26/2019 [place] Arthrodesi Problem 2019-01-26 M emoria s status Arthrodesi 15:19:24 l s status Williams 01/26/2019 [place] Hypertensi Hypertens Problem Resolve 2021-10-27 Memoria ve vince d 23:21:02 l disorder, disorder, Herm faina systemic systemic arterial arterial (disorder) (disorder) Resolved Problem 10/27/2021 [facility], RHODA Cedeño, RHODA Burr,M H [place] Cerebrospi Cerebrosp Problem Active 2021-10-27 Memoria nal fluid inal fluid 23:21:02 l leak leak Davidson (disorder) (disorder) Active Problem 10/27/2021 [facility], RHODA Cedeño, RHODA Burr Chest pain Chest Problem Active 2021-10-27 M emoria (finding) pain 23:21:02 l (finding) [place] Active Problem 10/27/2021 [facility], RHODA Cedeño, RHODA Burr,M [facility] [place] Morbid Morbid Problem Active 2021-10-27 David katarzyna obesity obesity 23:21:02 l (disorder) (disorder) He rmfaina Active Problem 10/27/2021 [facility], RHODA Cedeño, RHODA Burr Rhabdomyol Rhabdomyo Problem Active 2021-10-27 Memoria ysis lysis 23:21:02 l (disorder) (disorder) He rmfaina Active Problem 10/27/2021 [facility], RHODA Cedeño, RHODA Burr,M H [place] Smoker Smoker Problem Active 2021-10-27 David katarzyna (finding) (finding) 23:21:02 l Active [place] Problem 10/27/2021 [facility], RHODA Cedeño, RHODA Burr MECH COMPL MECH Diagnosis Active 2021-10-26 Memoria OF COMPL OF 18:20:00 l VENTRICULA VENTRICULA jose alfredo R R INTRACRANI INTRACRANI AL S AL S Active [facility] R10.30 - R10.30 - Diagnosis Active 2021-10-26 Memoria LOWER LOWER 18:20:00 l ABDOMINAL ABDOMINAL Herm faina PAIN, PAIN, UNSPECIF UNSPECIF Active RHODA Cedeño R10.84 - R10.84 - Diagnosis Active 2022-01-10 Memoria GENERALIZE GENERALIZE 14:35:00 l D D [place] ABDOMINAL ABDOMINAL PAIN PAIN Active RHODA Burr Sprain of Sprain of Problem Resolve 2021-10-27 2021-10-27 Memoria ligament ligament d 5-13 23:21:02 23:21:02 l of finger of finger 00:00: Herm faina (disorder) (disorder) 00 Resolved 12/23/2011 Problem 10/27/2021 [facility], RHODA Cedeño, RHODA Burr,M [facility] [place] History of Past Illness Condition Condition Condition Status Onset Resolution Last Treating Co mments Source Name Details Category Date Date Treatment Clinician Date Headache, Headache, Problem 2021-05-13 2021-05-13 Memoria unspecifie unspecifie 05-10 21:21:08 21:21:08 l d d 17:00: Davidson 05/10/2021 00 05/13/2021 [facility] Carpal Carpal Problem 2017-2019-01-26 2019-01-26 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:19:24 15:19:24 l syndrome, syndrome, 04:59: Anya eisenberg right right 41 upper limb upper limb 8 01/26/2019 [place] Obstructiv Obstructi Problem 2017-2019-01-11 2019-01-11 Mike bhakta sleep ve sleep 08-28 11:08:48 11:08:48 l apnea apnea 05:23: Davidson (adult) (adult) 17 (pediatric (pediatric ) ) 06/28/2018 01/11/2019 [place] Unspecifie Unspecifi Problem 2017-082018-12-03 2018-12-03 Mike d ed 0-11 14:53:30 14:53:30 l mononeurop mononeurop 04:28: Harpreet veliz athkatarzyna of athy of 42 right right upper limb upper limb 05/22/2018 12/03/2018 [place] Pain in Pain in Problem 2017-082018-12-03 2018-12-03 Mike arm, arm, 0-05 14:53:30 14:53:30 l unspecifie unspecifie 05:00: Harpreet gage d 00 05/16/2018 12/03/2018 [place] Allergies, Adverse Reactions, Alerts Allergy Allergy Status Severity Reaction(s) Onset Inactive Treating Comm ents Source Name Type Date Date Clinician NO KNOWN Drug Active [facility] ALLERGIE Class ity of S [facility] Acetamin drug Active Headache [facility] allergy [...] Date Stop Date Quantity Comments Source History SDOH [facility] Alcohol Frequency History SDOH [facility] Alcohol Std Drinks History SDOH [facility] Alcohol Binge History of Current smoker [facility] tobacco use Exposure to Not sure [facility] SARS-CoV-2 (event) Alcohol Comment 2021-10-18 2021-10-18 [facility] 00:[facility] 00:00:00 Tobacco use and 2021-04-18 2021-04-18 Smokeless tobacco [facility] exposure 00:00:00 00:00:00 non-user Social History 2018-07-08 2018-07-08 [facility] ranjit 18:40:37 18:40:37 Alcohol intake 2018-05-25 2018-05-25 Current non-drinker M ethodist 00:00:00 00:00:00 of [facility] (finding) Sex Assigned At [birth year] [facility] 00:00:00 00:00:00 [facility] Smoking Status Start Date Stop Date Source Unknown if ever smoked General acute hospital Ex-smoker 2021-10-18 00:00:00 2021-10-18 00:[facility]:00 [facility] Medic[facility] Ordered Filled Start Stop Current Ordering Indication Dosage Frequency Signature Comments Components Source Medication Medication Date Date Medication? Clinician (SIG) Name Name No known No No known [place] medications 10-20 medication He alth 13:38: s 44 Cefazolin No Notes: Memori a 10-10 (Same As: l 04:00: [place] Kovacs 00 Kefzol) MEDICATION WASTE Product Size: 1000 mg Product Wasted: ___ mg Oxycodone No 10 mg, Memori a 10-09 Route: PO, l 21:36: Drug form: Davidson TAB, ONCE, Dosing Weight 156, kg, PRN Pain Score 7-10, Start date: 10/09/21 15:36:00 DIETIST Ofirmev No or = 50 Memori a 10-09 kg, Start l 21:19: date: Williams 00 10/09/21 15:19:00 DIETIST sugammadex No Route: IV, M emoria (ANES) 10-09 Drug form: l 21:05: [place] DAVE 00 ONCE, Stop date: 10/09/21 15:05:00 DIETIST Hydromorpho No Notes: David katarzyna ne 2-28 Same as l 21:02: Dilaudid Flumazenil No Notes: Memor ia 10-09 (Same as: l 21:02: Romazicon) Naloxone No Notes: Memoria 10-09 Same as l 21:02: Narcan Ondansetron No 4 mg, Memor ia 10-09 Route: l 21:02: IVP, ONCE, Dosing Weight 156, kg, PRN Nausea & Vomiting, Start date: 10/09/21 15:02:00 DIETIST ondansetron No Route: IV, Memoria (ANES) 10-09 Drug form: l 21:00: INJ, ONCE, Stop date: 10/09/21 15:00:00 DIETIST ceFAZolin No Route: IV, Me moria (ANES) 10-09 Drug form: l 20:38: INJ, ONCE, Stop date: 10/09/21 14:38:00 DIETIST propofol No Route: IV, Mem oria (ANES) 10-09 Drug form: l 20:33: INJ, ONCE, Stop date: 10/09/21 14:33:00 DIETIST rocuronium No Route: IV, M emoria (ANES) 10-09 Drug form: l 20:33: INJ, ONCE, Stop date: 10/09/21 14:33:00 DIETIST fentaNYL No Route: IV, Mem oria (ANES) 10-09 Drug form: l 20:33: INJ, ONCE, Stop date: 10/09/21 14:33:00 DIETIST dexamethaso No Route: IV, Memoria ne (ANES) 10-09 Drug form: l 20:33: INJ, ONCE, Stop date: 10/09/21 14:33:00 DIETIST lidocaine No Route: IV, Me moria (ANES) 10-09 Drug form: l 20:28: INJ, ONCE, Stop date: 10/09/21 14:28:00 DIETIST Isolyte S 2022-0 No Route: IV, Me moria PH 7.4 10-09 Total l (ANES) 1000 19:29: Volume: Her jones mL 00 1,000, Start date: 10/09/21 13:29:00 DIETIST, Stop date: 10/09/21 14:29:00 DIETIST Epinephrine 2021- Yes Notes: David katarzyna 0.01 MG/ML 10-09 (Same as: l / Lidocaine 18:26: Xylocaine H ermann Hydrochlori 00 w/Epinephr de 10 MG/ML ine) Injectable Solution Lidocaine No 1 patch, David katarzyna 0.05 MG/MG 10-09 Route: l Transdermal 15:00: TOP, Sadi n Patch 00 Daily, Drug form: FILM, Start date: 10/09/21 9:00:00 DIETIST, Duration: 30 day, Stop date: 11/07/21 9:00:00 CDT, 0 Levetiracet No 500 mg, 1 M emoria am 500 MG 10-09 tab, l Oral Tablet 15:00: Route: PO, Davidson [Keppra] 00 Drug form: TAB, Q12H, Dosing Weight 156, kg, Start date: 10/09/21 9:00:00 DIETIST, Duration: 30 day, Stop date: 11/07/21 21:00:00 CDT, 0 Hydromorpho No Notes: David katarzyna ne 10-09 Same as l 13:57: Dilaudid [place] 00 Reglan No Notes: Memoria - (Same as: l 08:15: Reglan) Davidson 00 Dilaudid No Notes: Memoria 2-28 Same as l 08:15: Dilaudid Williams 00 Sodium No 1,000 mL, Memori a Chloride 10-09 Rate: 75 l 0.9% IV 06:49: ml/hr, Williams 1,000 mL 00 Infuse over: 13.3 hr, Route: IV, Dosing Weight 156 kg, Total Volume: 1,000, Start date: 10/09/21 0:49:00 DIETIST, Duration: 30 day, Stop date: 11/08/21 0:48:00 CDT, BSA: 2.9 m2, 0 Docusate No Notes: Memoria 2- (Same as: l 03:00: Colace) Williams (Do Not Crush) sennosides, No Notes: David katarzyna LONGTERM - (Same as: l 03:00: Senokot) Davidson Saline No Notes: Memoria Flush 0.9% 10-09 (Same as: l 03:00: BD Davidson 00 Posiflush) Sodium No 1,000 mL, Memori a Chloride 10-09 Rate: 50 l 0.9% IV 01:57: ml/hr, Williams 1,000 mL 00 Infuse over: 20 hr, Route: IV, Dosing Weight 156 kg, Total Volume: 1,000, Start date: 10/08/21 19:57:00 DIETIST, Duration: 30 day, Stop date: 11/07/21 19:56:00 CDT, BSA: 2.9 m2, 0 Acetaminoph No Notes: Do M emoria en - not exceed l 01:57: 4 gm/day. Williams (Same as: Tylenol) Acetaminoph No Notes: David katarzyna en 325 MG / 10-09 (Same as: l Hydrocodone 01:57: Hundred Kelly nn Bitartrate 00 325/5) Do 5 MG Oral not exceed Tablet 4gm/day of acetaminop hen. Morphine No Notes: Memoria - (Same l 01:57: as:MORPhin e Sulfate) Bisacodyl No Notes: Memori a - (Same As: l 01:57: Dulcolax, Davidson 00 Bisco-Lax) Ondansetron No Notes: David katarzyna - (Same as: l 01:57: Zofran) MEDICATION WASTE Product Size: 4 mg Product Wasted: ___ mg Hydralazine No Notes: David katarzyna -28 (Same as: l 01:57: Apresoline ) Push over 5 minutes Labetalol No 10 mg, 2 David katarzyna 2-28 mL, Route: l 01:57: IVP, Drug form: INJ, Q15Min, Dosing Weight 156, kg, PRN Hypertensi on, Start date: 10/08/21 19:57:00 DIETIST, Duration: 3 doses or times, Stop date: Limited # of times, 0 Saline No Notes: Memoria Flush 0.9% 10-09 (Same as: l 01:57: BD Posiflush) Insulin No Notes: Memoria regular 10-09 (Same as: l 01:57: Humulin R) Roll in palms of hands [...] Davidson [Keppra] 00 tab, 0 Refill(s), Pharmacy: [id number], 190.5, cm, 10/03/21 6:40:00 DIETIST, Height, 159.3, kg, 10/03/21 6:40:00 DIETIST, Weight docusate Yes 2 cap, PO, Mem oria sodium 50 2-24 QPM, X 10 l MG / 13:52: day, # 20 Davidson sennosides, 00 cap, 0 LONGTERM 8.6 MG Refill(s), Oral Pharmacy: [id number], 190.5, cm, 10/03/21 6:40:00 DIETIST, Height, 159.3, kg, 10/03/21 6:40:00 DIETIST, Weight magnesium Yes 8.725 gm = Me moria citrate 2-24 150 ml, l 58.2 MG/ML 13:52: PO, ONCE, He rmann Oral 00 if no Solution bowel movement in couple days, # 300 ml, 0 Refill(s), Pharmacy: [id number], 190.5, cm, 10/03/21 6:40:00 DIETIST, Height, 159.3, kg, 10/03/21 6:40:00 DIETIST, Weight POLYETHYLEN Yes 17 gm, PO, Memoria E GLYCOL 2-24 Daily, X l 3350 142 13:52: 10 day, # Herm faina MG/ML Oral 00 170 gm, 0 Solution Refill(s), [Miralax] Pharmacy: [id number], 190.5, cm, 10/03/21 6:40:00 DIETIST, Height, 159.3, kg, 10/03/21 6:40:00 DIETIST, Weight Ondansetron No 4 mg = 1 Me moria 4 MG Oral 2-24 tab, PO, l Tablet 13:52: Q8H, PRN [place] [Zofran] 00 Nausea/vom iting, X 3 day, # 10 tab, 0 Refill(s), Pharmacy: [id number], 190.5, cm, 10/03/21 6:40:00 DIETIST, Height, 159.3, kg, 10/03/21 6:40:00 DIETIST, Weight Acetaminoph Yes 1 tab, PO, Memoria en 325 MG / 2-24 Q4-6H, PRN l Hydrocodone 13:52: Pain Score [place] Bitartrate 00 4-6, X 5 5 MG Oral day, # 30 Tablet tab, 0 [Hundred Refill(s), 5/325] other heparin No Notes: Memoria 5000 2-23 porcine l units/mL 22:00: heparin Sadi n injectable 00 solution Saline No Notes: Memoria Flush 0.9% 2-23 Same as: l 03:00: BD [place] 00 Posiflush Sterile Levetiracet No Notes: David katarzyna am 500 MG 2-23 (Same l Oral Tablet 03:00: as:Keppra) Williams [Keppra] 00 Cefazolin No Notes: Memori a 2-23 (Same as l 02:00: Ancef) Williams 00 Docusate No Notes: Memoria 2-22 (Same as: l 23:00: Colace) (Do Not Crush) sennosides, No Notes: David katarzyna LONGTERM 10-03 (Same as: l 23:00: Senokot) Famotidine No Notes: Memor ia 20 MG Oral 10-03 (Same as: l Tablet 23:00: Pepcid) Hydromorpho No 0.5 mg, Mem oria ne 10-03 Route: l 20:05: IVP, ONCE, Dosing Weight 159.3, kg, Priority: STAT, Start date: 10/03/21 14:05:00 DIETIST, Stop date: 10/03/21 14:05:00 DIETIST metoprolol No Route: IV, M emoria (ANES) 10-03 Drug form: l 19:20: INJ, ONCE, Stop date: 10/03/21 13:20:00 DIETIST Oxycodone No 10 mg, Memori a Hydrochlori 10-03 Route: PO, l de 5 MG 19:16: Drug form: Herm faina Oral Tablet 00 TAB, Q4H, Dosing Weight 159.3, kg, PRN Pain Score 7-10, Start date: 10/03/21 13:16:00 DIETIST, Duration: 30 day, Stop date: 11/02/21 13:15:00 CDT sugammadex No Route: IV, M emoria (ANES) 10-03 Drug form: l 18:37: SOLN, ONCE, Stop date: 10/03/21 12:37:00 DIETIST ondansetron No Route: IV, Memoria (ANES) 10-03 Drug form: l 18:22: INJ, ONCE, Stop date: 10/03/21 12:22:00 DIETIST Dexamethaso No Notes: David katarzyna ne - Give with l 18:00: food. (Same As: Decadron) Hydralazine No Notes: David katarzyna 2- (Same as: l 17:50: Apresoline ) Push over 5 minutes Ondansetron No Notes: David katarzyna 2-22 (Same as: l 17:50: Zofran) MEDICATION WASTE Product Size: 4 mg Product Wasted: ___ mg Acetaminoph No Notes: Do M emoria en 325 MG / 2-22 not exceed l Hydrocodone 17:50: 4gm/day of Bitartrate acetaminop 10 MG Oral hen. (Same Tablet as: Hundred [Hundred 325/10) 10/325] Dilaudid No Notes: Memoria 2-22 Same as l 17:50: Dilaudid Benadryl No Notes: Memoria 2-22 (Same as: l 17:50: Benadryl) phenol No Notes: Memoria 2-22 Chlorasept l 17:50: ic [place] (Same as: Chlorasept ic, Sore Throat [place]) WASTE: F/P - Black; E - Municipal Trash Bin Bisacodyl No Notes: Memori a 2-22 (Same As: l 17:50: Dulcolax, Bisco-Lax) Robaxin No Notes: Memoria 2-22 (Same l 17:50: as:Robaxin ) Melatonin 3 No Notes: David katarzyna MG Extended 2-22 (Same as: l Release 17:50: Melatonin) 00 Tylenol No Notes: Do Memor ia 2-22 not exceed l 17:50: 4 gm/day. (Same as: Tylenol) Reglan No Notes: Memoria 2-22 (Same as: l 17:50: Reglan) Phenergan No Notes: Do Mem oria 2-22 not give l 17:50: IV push. (Same as: Phenergan) Saline No Notes: Memoria Flush 0.9% 2-22 Same as: l 17:50: BD Posiflush Sterile Sodium No 1,000 mL, Memori a Chloride 2-22 Rate: 100 l 0.9% IV 17:50: ml/hr, Williams 1,000 mL 00 Infuse over: 10 hr, Route: IV, Dosing Weight 159.3 kg, Total Volume: 1,000, Start date: 10/03/21 11:50:00 DIETIST, Duration: 30 day, Stop date: 11/02/21 11:49:00 CDT, BSA: 2.93 m2, 0 Labetalol No 10 mg, 2 David katarzyna 2-22 mL, Route: l 17:50: IVP, Drug form: INJ, Q15Min, Dosing Weight 159.3, kg, PRN Hypertensi on, Start date: 10/03/21 11:50:00 DIETIST, Duration: 3 doses or times, Stop date: 10/04/21 0:00:00 DIETIST, 0 lidocaine 2021- No Route: IV, Me moria (ANES) 10-03 Drug form: l 16:45: INJ, ONCE, Stop date: 10/03/21 10:45:00 DIETIST rocuronium 2021-0 No Route: IV, M emoria (ANES) 10-03 Drug form: l 16:45: INJ, ONCE, Stop date: 10/03/21 10:45:00 DIETIST dexamethaso 2021-0 No Route: IV, Memoria ne (ANES) 2- Drug form: l 16:45: INJ, ONCE, Stop date: 10/03/21 10:45:00 DIETIST phenylephri 2021-0 No Route: IV, Memoria ne (ANES) 2- Drug form: l 16:40: INJ, ONCE, Stop date: 10/03/21 10:40:00 DIETIST Hydralazine 2021-0 No Notes: David katarzyna 2-22 (Same as: l 16:37: Apresoline ) Push over 5 minutes Labetalol 2021-0 No 10 mg, 2 David katarzyna 2-22 mL, Route: l 16:37: IVP, Drug form: INJ, Q5Min, Dosing Weight 159.3, kg, PRN Elevated BP, Start date: 10/03/21 10:37:00 DIETIST, Duration: 5 doses or times, Stop date: 10/04/21 0:00:00 DIETIST, 0 Oxycodone No Notes: Memori a Hydrochlori 10-03 (Same as: l de 5 MG 16:37: Roxicodone Herm faina Oral Tablet ) Hydromorpho No Notes: David katarzyna ne 10-03 Same as l 16:37: Dilaudid Flumazenil No Notes: Memor ia 10-03 (Same as: l 16:37: Romazicon) Naloxone No Notes: Memoria 10-03 Same as l 16:37: Narcan Ondansetron No Notes: David katarzyna 10-03 (Same as: l 16:37: Zofran) MEDICATION WASTE Product Size: 4 mg Product Wasted: ___ mg propofol No Route: IV, Mem oria (ANES) 10-03 Drug form: l 16:35: INJ, ONCE, Stop date: 10/03/21 10:35:00 DIETIST fentaNYL No Route: IV, Mem oria (ANES) - Drug form: l 16:35: INJ, ONCE, Stop date: 10/03/21 10:35:00 DIETIST midazolam No Route: IV, Me moria (ANES) - Drug form: l 16:24: SOLN, ONCE, Stop date: 10/03/21 10:24:00 DIETIST ceFAZolin No Route: IV, Me moria (ANES) 2- Drug form: l 16:24: INJ, ONCE, Stop date: 10/03/21 10:24:00 DIETIST levETIRAcet No Route: IV, Memoria am (ANES) 2- Drug form: l 100 mg 16:20: INJ, Start Kelly date: 10/03/21 10:20:00 DIETIST, Stop date: 10/03/21 11:20:00 DIETIST propofol No Route: IV, Mem oria (ANES) 10 10-03 Drug form: l mg 15:26: INJ, Start Davidson 00 date: 10/03/21 9:26:00 DIETIST, Stop date: 10/03/21 10:26:00 DIETIST Isolyte S No Route: IV, Me moria PH 7.4 10-03 Total l (ANES) 1000 14:26: Volume: Her jones mL 00 1,000, Start date: 10/03/21 8:26:00 DIETIST, Stop date: 10/03/21 9:26:00 DIETIST Isolyte S No Notes: Memori a PH 7.4 10-03 (Same as: l 1,000 mL 12:35: Isolyte S Herm faina 00 PH7.4, Normosol-R PH 7.4, Plasma-Lyt e A ) Acetaminoph No 1,000 mg, M emoria en 10-03 Route: PO, l 12:35: Drug form: Williams 00 TAB, PRE OP, Dosing Weight 160.3, kg, Priority: NOW, Start date: 10/03/21 6:35:00 DIETIST, Duration: 1 doses or times NS + KCL No Notes: Memoria 20mEq/L 10-03 PREMIX IV l 1000ml 12:00: - Do Not Williams (Premix) 00 Alter 1,000 mL WASTE: F/P [...] Refill(s) Tablet [Tylenol with Codeine #3] Zofran No PRN, 0 Memoria 2-21 Refill(s) l 18:02: [place] 00 Sodium No 250 mL, Memoria Chloride 2-21 Rate: To l 0.9% 17:06: prime line Williams (titrate) 00 and flush 250 mL remaining blood products., Dosing Weight 160.3, kg, Route: IV, Total Volume: 250, Start Date: 10/02/21 11:06:00 DIETIST, Duration: 1 day, Stop date: 10/03/21 11:05:00 DIETIST, Replace Every: 24 hr, 0 Acetaminoph 0 No 1 tab, David katarzyna en 325 MG / 05-11 Route: PO, l Hydrocodone 12:17: Drug Form: [place] Bitartrate 00 TAB, 5 MG Oral Dosing Tablet Weight 139.409, kg, ONCE, STAT, Start date: 05/11/21 7:17:00 CDT, Stop date: 05/11/21 7:17:00 CDT Acetaminoph No 1,000 mg, M emoria en 05-11 Route: PO, l 07:46: ONCE, Williams Dosing Weight 139.409, kg, Start date: 05/11/21 2:46:00 CDT, Stop date: 05/11/21 2:46:00 CDT Iohexol No 100 mL, Memoria 05-11 Route: l [...] FOR 10 Branc h tablet DAYS ofloxacin 2021-0 Yes INSTILL 10 Un janette 0.3 % [...] 00:00 for n/v - [facility] 00 :00 [facility] ondansetron 2019-0 Yes [id number] 4mg Take 1 [facility] (ZOFRAN 3-11 tablet by ity of ODT) 4 mg 00:00: mouth [place] disintegrat 00 every 8 Medic al ing tablet (eight) Branch hours as needed for Nausea and Vomiting (N/V). benzonatate 0 Yes [id number] 200mg Take 1 [facility] 200 mg 3-11 capsule by ity of capsule 00:00: mouth 3 [place] 00 (three) Medical times Branch daily as needed for Cough for up to 20 doses. ibuprofen 2019-0 Yes [id number] 600mg Take 1 U nivers 600 mg [...] if headache persists. Ondansetron Ondansetron 2017-08 Yes BRANT 1 Take 1 UT HCl - 4 MG HCl - 4 MG 2-11 B[facility]OU N[facility]P. tablet [facility] Oral Tablet Oral Tablet 00:00: every 6 ans 00 hours prn for nausea Omeprazole Omeprazole 2017-08 Yes JENNYNAE 1 QD TAKE 1 UT 40 MG Oral 40 MG Oral 2-04 [facility] N[facility] CAPSULE [facility] Capsule Capsule 00:00: DAILY ans Delayed Delayed 00 Release Release Oxycodone 2017-08 No 5 mg, Memoria Hydrochlori 09-08 Route: PO, l de 5 MG 22:24: Drug form: Herm faina Oral Tablet 00 TAB, ONCE, Dosing Weight 139.409, kg, PRN Pain Score 4-6, Start date: 07/09/18 16:24:00 DIETIST Promethazin 2017-08 No Notes: Do M emoria e 09-08 not give l 21:26: IV push. (Same as: Phenergan) Lorazepam 2017-08 No Notes: Memori a 09-08 (Same as: l 21:26: Ativan) Dexamethaso 2017-08 No Notes: David katarzyna ne 09-08 Concentrat l 21:26: ion: [place] 00 4mg/ml Racepinephr 2017-08 No Notes: David katarzyna [...] ne 09-08 Same as: l 21:26: Dilaudid Naloxone 2017-08 No Notes: Memoria 09-08 Same as l 21:26: Narcan Ephedrine 2017-08 No Notes: Memori a 09-08 final l 21:26: concentrat ion 5 mg/mL Acetaminoph 2017-08 No Notes: Max Memoria en 09-08 acetaminop l 21:26: hen 4000 Williams 00 mg/day (4 gm/day). (Same as: Tylenol Extra Strength) Fentanyl 2017-08 No Notes: Memoria 09-08 (Same as: l 21:26: Sublimaze) Preservati ve free. Hydralazine 2017-08 No Notes: David katarzyna 09-08 (Same as: l 21:26: Apresoline ) Push over 5 minutes Labetalol 2017-08 No 10 mg, 2 David katarzyna 09-08 mL, Route: l 21:26: IVP, Drug form: INJ, Q5Min, Dosing Weight 139.409, kg, PRN Elevated BP, Start date: 07/09/18 15:26:00 DIETIST, Duration: 5 doses or times, Stop date: [...] 21:19: INJ, ONCE, Stop date: 07/09/18 15:19:00 DIETIST ceFAZolin 2017-08 No Route: IV, Me moria (ANES) 09-08 Drug form: l 20:43: INJ, ONCE, Stop date: 07/09/18 14:43:00 DIETIST lidocaine 2017-08 No Route: IV, Me moria (ANES) 09-08 Drug form: l 20:43: INJ, ONCE, Davidson 00 Stop date: 07/09/18 14:43:00 DIETIST propofol 2017-08 No Route: IV, Mem oria (ANES) 09-08 Drug form: l 20:43: INJ, ONCE, Stop date: 07/09/18 14:43:00 DIETIST fentaNYL 2017-08 No Route: IV, Mem oria (ANES) 09-08 Drug form: l 20:43: INJ, ONCE, Stop date: 07/09/18 14:43:00 DIETIST metoclopram 2017-08 No Route: IV, Memoria debbie (ANES) 09-08 Drug form: l 20:38: INJ, ONCE, Stop date: 07/09/18 14:38:00 DIETIST famotidine 2017-08 No Route: IV, M emoria (ANES) 09-08 Drug form: l 20:38: INJ, ONCE, Stop date: 07/09/18 14:38:00 DIETIST dexamethaso 2017-08 No Route: IV, Memoria ne (ANES) 09-08 Drug form: l 20:38: INJ, ONCE, Stop date: 07/09/18 14:38:00 DIETIST midazolam 2017-08 No Route: IV, Me moria (ANES) 09-08 Drug form: l 20:38: SOLN, Davidson 00 ONCE, Stop date: 07/09/18 14:38:00 DIETIST Lactated 2017-08 No Route: IV, Mem oria Ringers 09-08 Total l Injection 19:45: Volume: Kelly nn IV (ANES) 00 1,000, 1000 mL Start date: 07/09/18 13:45:00 DIETIST, Stop date: 07/09/18 14:45:00 DIETIST Famotidine 2017-08 No Notes: Memor ia 40 MG Oral 09-08 (Same as: l Tablet 19:37: Pepcid) Davidson [Pepcid] 00 Celebrex 2017-08 No 200 mg, Memori a 09-08 Route: PO, l 19:00: Drug form: Williams 00 MARITZA CALIXTO, Dosing Weight 140.909, kg, Start date: 07/09/18 13:00:00 DIETIST, Duration: 30 day, Stop date: 08/08/18 12:59:00 DIETIST Lidocaine 2017-08 No Notes: Memori a Hydrochlori 09-08 Preservati l de 10 MG/ML 19:00: ve free. He rmann Injectable 00 (Same as: Solution Xylocaine MPF) Famotidine 2017-08 No Notes: Memor ia 09-08 (Same as: l 19:00: Pepcid) Williams 00 Can be dilute in 5-10cc NS IVP: Slow IV push over at least 2 minutes. Zofran 2017-08 No 4 mg, Memoria 09-08 Route: l 18:53: IVP, Drug Davidson 00 form: INJ, ONCE, Dosing Weight 139.409, kg, Priority: STAT, Start date: 07/09/18 12:53:00 DIETIST, Stop date: 07/09/18 12:53:00 DIETIST Tylenol 2017-08 No 1,000 mg, Memor ia 09-08 Route: PO, l 18:20: ONCE, Williams 00 Dosing Weight 140.909, kg, Priority: STAT, Start date: 07/09/18 12:20:00 DIETIST, Stop date: 07/09/18 12:20:00 DIETIST Insulin 2017-08 No Notes: Memoria Lispro 09-08 (Same as: l 18:18: Humalog ) Williams 00 Roll in palms of hands gently; Do not shake `vigorousl y. "Single Patient Use Only " WASTE: F/P - Black; E - Municipal Trash Bin Stable for 28 days at room temperatur e. Expires in days from ____Date Calcium 2017-08 No 1,000 mL, Memor ia Chloride 09-08 Rate: 25 l 0.0014 18:18: ml/hr, Davidson MEQ/ML / 00 Infuse Potassium over: 40 Chloride hr, Route: 0.004 IV, Dosing MEQ/ML / Weight Sodium 140.909 Chloride kg, Total 0.103 Volume: MEQ/ML / 1,000, Sodium Start Lactate date: 0.028 07/09/18 MEQ/ML 12:18:00 Injectable DIETIST, Solution Duration: 30 day, Stop date: 08/08/18 12:17:00 DIETIST, 2.75, m2 ceFAZolin + 2017-08 No Notes: David katarzyna sterile 09-08 (Same As: l water 30 mL 12:00: Ancef, Herm faina 00 Kefzol) MEDICATION WASTE Product Size: 1000 mg Product Wasted: ___ mg Lactated 2017-08 No 1,000 mL, David katarzyna Ringers 09-08 Rate: KVO l Injection 12:00: rate, Williams IV 1,000 mL 00 Route: IV, Dosing Weight 140.909 kg, Total Volume: 1,000, Start date: 07/09/18 6:00:00 DIETIST, Duration: 30 day, Stop date: 08/08/18 5:59:00 DIETIST, 2.75, m2 Norvasc 2017-08 Yes See Memoria 09-07 Instructio l 18:43: ns, PO Williams 00 Daily, 0 Refill(s) Amlodipine 2017-08 Yes See Memoria 09-07 Instructio l 18:42: ns, PO Davidson 00 Daily, 0 Refill(s) amLODIPine amLODIPine 2017-08 [...] Notes: Memoria 0-05 (Same l 11:34: as:MORPhin Williams 00 e Sulfate) Dexamethaso 2017-08 No 8 mg, Memor ia ne 0-05 Route: IM, l 11:01: ONCE, Dosing Weight 144.091, kg, Priority: STAT, Start date: 05/16/18 6:01:00 CDT, Stop date: 05/16/18 6:01:00 CDT Zofran ODT 2017-08 No 4 mg, Memori a 0-05 Route: PO, l 11:01: Drug form: TABDIS, ONCE, Dosing Weight 144.091, kg, Priority: STAT, Start date: 05/16/18 6:01:00 CDT, Stop date: 05/16/18 6:01:00 CDT Morphine 2017-08 No 8 mg, Memoria 0-05 Route: IM, l 11:01: ONCE, Dosing Weight 144.091, kg, Priority: STAT, Start date: 05/16/18 6:01:00 CDT, Stop date: 05/16/18 6:01:00 CDT Zofran Zofran Yes Norah 1 tablet Commo n [place] as needed [facility] Losartan Losartan Yes Norah 1 tablet C ommon Potassium-H Potassium-H [place] [facility] CTZ [facility] Hydrocodone Hydrocodone Yes Norah 1 tablet Common -Acetaminop -Acetaminop [place] as needed [facility] Adderall XR Adderall XR Yes Norah 1 capsule Common [place] in [facility] - [facility] Omeprazole Omeprazole Yes Noarh 1 capsule Common [place] 30 minutes [facility] before - [facility] Dicyclomine Dicyclomine Yes Norah 1 tablet Common HCl HCl [place] [facility] No known No Methodi medications [facility] [...] Observation Value Comments Source Heart Rate 2021-10-10 [facility] Sadi n 14:08:15 Systolic (mm Hg) 2021-10-10 [facility] rmann 14:07:42 Diastolic (mm Hg) 2021-10-10 [facility] ermann 14:07:42 Heart Rate 2021-10-10 [facility] Sadi n 14:07:42 Temperature Oral 2021-10-10 99.2 F [facility] rmann (F) 14:07:27 Heart Rate 2021-10-10 [facility] Sadi n 10:20:56 Respitory Rate 2021-10-10 [facility] faina 10:20:56 Systolic (mm Hg) 2021-10-10 [facility] rmann 10:20:37 Diastolic (mm Hg) 2021-10-10 [facility] ermann 10:20:37 Temperature Oral 2021-10-10 98.1 F [facility] rmann (F) 10:19:31 Respitory Rate 2021-10-10 [facility] faina 05:19:58 Systolic (mm Hg) 2021-10-10 [facility] rmann 05:19:44 Diastolic (mm Hg) 2021-10-10 [facility] ermann 05:19:44 Temperature Oral 2021-10-10 98.7 F [...] n 09:21:01 Temperature Oral 2021-10-09 98.4 F [facility] (F) 09:20:59 Systolic (mm Hg) 2021-10-09 [...] 23:44:00 Temperature Oral 2021-10-08 98.6 F [facility] (F) 23:44:00 Heart Rate 2021-10-05 [facility] Sadi n 13:48:13 Respitory Rate 2021-10-05 [facility] faina 13:48:13 Systolic (mm Hg) 2021-10-05 [facility] 13:47:41 Diastolic (mm Hg) 2021-10-05 [facility] ermann 13:47:41 Heart Rate 2021-10-05 [facility] Sadi n 13:47:41 Temperature Oral 2021-10-05 99.2 F [facility] Harpreet rmann (F) 13:47:17 Heart Rate 2021-10-05 [facility] Sadi n 09:39:43 Respitory Rate 2021-10-05 [facility] faina 09:39:43 Systolic (mm Hg) 2021-10-05 [facility] 09:39:35 Diastolic (mm Hg) 2021-10-05 [facility] ermann 09:39:35 Temperature Oral 2021-10-05 98.4 F [facility]mann (F) 09:38:41 Respitory Rate 2021-10-05 [facility] faina 06:44:26 Systolic (mm Hg) 2021-10-05 [facility] 06:44:17 Diastolic (mm Hg) 2021-10-05 [facility] ermann 06:44:17 Temperature Oral 2021-10-05 98.7 F [facility] Harpreet rmann (F) 06:42:51 Height 2021-10-03 190.5 cm [facility] Sadi n 12:40:00 Weight 2021-10-03 [facility] S[facility] n 12:40:00 BMI Calculated 2021-10-03 [facility] faina 12:40:00 Height 2021-10-02 190.5 cm [facility] Sadi n 16:30:00 Weight 2021-10-02 [facility] Sadi n 16:30:00 BMI Calculated 2021-10-02 [facility] faina 16:30:00 Systolic (mm Hg) 2021-05-11 [facility] 13:50:00 Diastolic (mm Hg) 2021-05-11 [facility] ermann 13:50:00 Temperature Oral 2021-05-11 98.5 F [facility] Harpreet rmann (F) 13:50:00 Systolic (mm Hg) 2021-05-11 [facility] 12:22:00 Diastolic (mm Hg) 2021-05-11 [facility] ermann 12:22:00 Systolic (mm Hg) 2021-05-11 [facility] r[facility] 11:21:00 Diastolic (mm Hg) 2021-05-11 [facility] ermann 11:21:00 Respitory Rate 2021-05-11 [facility] faina 11:21:00 Respitory Rate 2021-05-11 [facility] faina 10:42:00 Respitory Rate 2021-05-11 [facility] faina 09:02:00 Temperature Oral 2021-05-11 98.4 F Magdalene Mullins rmann (F) 08:30:00 Heart Rate 2021-05-11 [facility] n 06:50:00 Heart Rate 2021-05-11 [facility] n 06:18:00 Heart Rate 2021-05-11 Magdalene Avitia n 00:55:00 Temperature Oral 2021-05-11 98.2 F [facility] Harpreet rmann (F) 00:55:00 BP Systolic 2018-10-02 155 mm[Hg] Location: LUE; [facility] 15:26:00 Position: Sitting BP Diastolic 2018-10-02 88 mm[Hg] Location: LUE; [facility] 15:26:00 Position: Sitting Height 2018-10-02 75 [...] 18:19:00 BP Systolic 2018-06-03 136 mm[Hg] Location: LUE; [facility] 14:09:00 Position: Sitting BP Diastolic 2018-06-03 75 mm[Hg] Location: SHREYAS; [facility] 14:09:00 Position: Sitting Height 2018-06-03 75 [in_us] [facility] 14:09:00 Weight 2018-06-03 317 [lb_av] [facility] 14:09:00 Body Mass Index 2018-06-03 39.62 kg/m2 [facility] Calculated 14:09:00 Temperature 2018-06-03 97.9 [degF] Method: Oral [facility] 14:09:00 Heart Rate 2018-06-03 74 /min [facility] 14:09:00 Respitory Rate 2018-05-16 [facility] 13:32:00 Systolic (mm Hg) 2018-05-16 [facility] 13:32:00 Diastolic (mm Hg) 2018-05-16 [facility] ermann 13:32:00 Heart Rate 2018-05-16 [facility] Sadi n 13:32:00 Systolic (mm Hg) 2018-05-16 [...] Magdalene Sadi n 11:50:00 Respitory Rate 2018-05-16 Magdalene Herm faina 11:50:00 Temperature Oral 2018-05-16 98.8 F [facility] Harpreet rmann (F) 10:56:00 Weight 2018-05-16 Magdalene Joyneran n 10:56:00 Procedures Procedure Date / Time Performing Clinician Source Performed REFERRAL- REQUEST/RESPONSE 2021-03-30 05:01:00 Doctor Unassigned , [facility] Myringotomy 2020-10-10 00:00:00 [facility] Her jones [U] XRAY KNEE 4 OR MORE 2018-07-24 00:00:00 [facility] VWS RIGHT [id number] Emg/Ncv 2018-06-20 00:00:00 [facility] Sleep Lab - Sleep 2018-06-03 00:00:00 [facility] Study Split Night Ulnar nerve decompression 2015-08-12 00:00:00 Ny morial Williams History of Cubital tunnel [facility] repair History of Wrist surgery [facility] Operation [facility] of [facility] tooth Memor ial Davidson Appendectomy [facility] Plan of Care Planned Activity Planned Date Details Comments Source Future Scheduled Test 2022-04-13 COVID-19 VACCINE [facility] 21:38:54 (#1) [code = COVID-19 VACCINE (#1)] Future Scheduled Test 2022-04-13 INFLUENZA VACCINE [facility] 21:38:54 [code = INFLUENZA VACCINE] Future Scheduled Test 2022-04-13 HEPATITIS B Method [facility] 21:38:54 VACCINES (1 of 3 - 3-dose series) [code = HEPATITIS B VACCINES (1 of 3 - 3-dose series)] Future Scheduled Test 2022-04-13 COVID-19 VACCINE [facility] 21:38:54 (#1) [code = COVID-19 VACCINE (#1)] Future Scheduled Test 2022-04-13 INFLUENZA VACCINE [facility] 21:38:54 [code = INFLUENZA VACCINE] Future Scheduled Test 2022-04-13 HEPATITIS B Method [facility] 21:38:54 VACCINES (1 of 3 - 3-dose series) [code = HEPATITIS B VACCINES (1 of 3 - 3-dose series)] Future Scheduled Test 2022-04-13 COVID-19 VACCINE [facility] 21:38:54 (#1) [code = COVID-19 VACCINE (#1)] Future Scheduled Test 2022-04-13 INFLUENZA VACCINE [facility] 21:38:54 [code = INFLUENZA VACCINE] Future Scheduled Test 2022-04-13 HEPATITIS B Method [facility] 21:38:54 VACCINES (1 of 3 - 3-dose series) [code = HEPATITIS B VACCINES (1 of 3 - 3-dose series)] Future Scheduled Test 2022-04-13 COVID-19 VACCINE [facility] 21:38:54 (#1) [code = COVID-19 VACCINE (#1)] Future Scheduled Test 2022-04-13 INFLUENZA VACCINE [facility] 21:38:54 [code = INFLUENZA VACCINE] Future Scheduled Test 2022-04-13 HEPATITIS B Method [facility] 21:38:54 VACCINES (1 of 3 - 3-dose series) [code = HEPATITIS B VACCINES (1 of 3 - 3-dose series)] Future Scheduled Test 2022-04-13 HEPATITIS B Method [facility] 21:38:54 VACCINES (1 of 3 - 3-dose series) [code = HEPATITIS B VACCINES (1 of 3 - 3-dose series)] Future Scheduled Test 2022-04-13 COVID-19 VACCINE [facility] 21:38:54 (#1) [code = COVID-19 VACCINE (#1)] Future Scheduled Test 2022-04-13 INFLUENZA VACCINE [facility] 21:38:54 [code = INFLUENZA VACCINE] Future Scheduled Test 2022-04-13 COVID-19 VACCINE [facility] 21:38:54 (#1) [code = COVID-19 VACCINE (#1)] Future Scheduled Test 2022-04-13 INFLUENZA VACCINE [facility] 21:38:54 [code = INFLUENZA VACCINE] Future Scheduled Test 2022-04-13 HEPATITIS B Method [facility] 21:38:54 VACCINES (1 of 3 - 3-dose series) [code = HEPATITIS B VACCINES (1 of 3 - 3-dose series)] Diagnostic Test 2018-06-20 Emg/Ncv [code = [facility] Pending 00:00:00 Emg/Ncv] Diagnostic Test 2018-06-20 Emg/Ncv [code = [facility] Pending 00:00:00 Emg/Ncv] Future Scheduled Test COVID-19 VACCINE [facility] (1) [code = COVID-19 VACCINE (1)] Future Scheduled Test Hepatitis C Method [facility] screening (procedure) [code = 007742274] Future Scheduled Test INFLUENZA VACCINE [facility] [code = INFLUENZA VACCINE] Encounters Start End Encounter Admission Attending Care Care Encounter Source Date/Time Date/Time Type Type Clinicians Facility Department ID 2022-04-23 Outpatient [facility] [id number] [place] 18:16:42 [id number] [facility] 2022-03-20 Outpatient [facility] [id number] [place] 17:49:20 [id number] [facility] 2021-10-25 Outpatient MIGUEL ANGEL [facility] ANAY [id number] [facility] 11:23:00 GERONIMO 2021-09-06 Outpatient Vazquez, [facility] [id number] Common 12:12:10 John [id number] [facility] 2021-09-06 [facility] [id number] Common 12:10:54 [facility] [address] [facility] 2021-09-06 [facility], [facility] [id number] Common 12:09:52 [facility] [address] [facility] 2021-09-06 [facility] [id number] Common 11:54:05 John [id number] [facility] 2021-09-06 Out[facility] Vazquez, [facility] [id number] Common 11:06:57 John [id number] [facility] 2021-09-06 [facility] [id number] Common 11:06:47 John [id number] [facility] 2022-05-12 2022-05-12 Emergency E ROBERTS, [facility] 2274 [facility] 03:16:00 21:21:00 SONIA 2022-03-14 2022-03-14 Telephone Day, Noah UTP 6400 [id number] [place] 00:00:00 00:00:00 Alec KING [id number] Health [id number] 2021-10-25 2021-10-26 Outpt Diag nullFlavo [facility] [id number] Memoria 18:11:00 04:59:00 Services r Outpatient 01 l Imaging [facility] 2021-10-18 2021-10-19 Outpt Diag nullFlavo [facility] [id number] Memoria 17:43:00 05:59:00 Services r Outpatient 00 l Imaging [facility] 2021-10-08 2021-10-10 Inpatient nullFlavo [facility] [id number] Memoria 23:43:00 15:48:00 [facility] 58 [facility] 2021-10-08 2021-10-10 Inpatient E DAY, NOAH [facility] 2057 [facility] 19:58:00 09:48:00 2021-10-03 2021-10-05 Inpatient nullFlavo [facility] [id number] Memoria 11:15:00 16:21:00 chace Williams 05 [facility] 2021-10-03 2021-10-05 Inpatient DAY, NOAH [facility] 7505 [facility] 05:15:00 10:21:00 2021-09-20 2021-09-20 Telephone Day, Noah EUNICE 6400 [id number] [place] 00:00:00 00:00:[address] [id number] [facility] [id number] 2021-05-11 2021-05-11 Emergency [facility] [id number] [facility] 00:42:19 14:08:[address] 2021-05-11 2021-05-11 Outpatient STLMLC [facility] [id number] Common 00:00:00 00:00:00 [facility] 2021-04-06 2021-04-06 Outpatient STLMLC STLMLC [id number] Common 00:00:00 00:00:00 [facility] 2021-04-06 2021-04-06 Outpatient STLMLC STLMLC [id number] Common 00:00:00 00:00:00 [facility] 2021-03-31 2021-03-31 Outpatient STLC STLC [id number] Common 00:00:00 00:00:00 [facility] 2021-03-30 2021-03-30 Orders Doctor AICHA [id number] 00:00:00 00:00:00 Only Unassigned, ABDULKADIR [id number] [place] [facility] [id number] 2021-03-30 2021-03-30 Orders Doctor AICHA [id number] [facility] 00:00:00 00:00:00 Only Unassigned, ABDULKADIR [id number] ity of [place] [facility] [id number] Norberto as [id number] [facility] 009 Branch 2021-03-21 2021-03-21 Ancillary 1, Gal [facility] [id number] 14:21:34 15:15:15 Visit Audio Sound Y [id number] [address] [id number] BANK [id number] BLDG. 141 2021-03-21 2021-03-21 Outpatient R [facility] [id number] Univers 14:30:00 14:30:00 [id number] [facility] 2021-03-21 2021-03-21 Outpatient R RENZO, [facility] [id number] Univers 13:45:00 13:45:00 FABY [facility] 2021-01-17 2021-01-17 Emergency X BARBARA, [facility] ERT [id number] Univers 19:28:00 19:28:00 LAURENCE [facility] 2020-11-21 2020-11-21 Emergency X [facility] ERT [id number] Univers 15:51:00 15:51:00 [facility] 2020-07-20 2020-07-20 Outpatient STLMLC STL[facility]C [id number] Common 00:00:00 00:00:00 [facility] 2020-07-12 2020-07-12 Outpatient STLMLC STLMLC [id number] Common 00:00:00 00:00:00 [facility] 2020-05-23 2020-05-23 Outpatient STLMLC STLMLC [id number] Common 00:00:00 00:00:00 [facility] 2020-02-24 2020-02-24 Out[facility] [id number] Common 14:42:00 14:42:[address] [facility] 2020-02-22 2020-02-22 Out[facility] [id number] Common 13:51:00 13:51:00 t [employer] [address] [facility] 2019-12-10 2019-12-10 Out[facility] [id number] Common 15:39:00 15:39:00 t [employer] [address] [facility] 2019-12-08 2019-12-08 Outpatient [facility] [id number] Common 13:40:00 13:40:[address] [facility] 2019-12-07 2019-12-07 Outpatient [facility] [id number] Common 12:05:00 12:05:00 t [employer] [address] [facility] 2019-11-16 2019-11-16 Outpatient [facility] [id number] Common 11:00:00 11:00:00 [facility] 2019-10-21 2019-10-21 Emergency X Blaire PADRON [facility] ERT [id number] Univers 11:24:16 14:51:00 ity of [facility] 2019-09-29 2019-09-29 Outpatient [facility] [id number] Common 09:21:00 09:21:00 t [facility] 2019-09-21 2019-09-21 Out[facility] [id number] Common 14:00:00 14:00:00 [facility] 2019-03-13 2019-03-13 AppointEUNICE Serra [facility] [id number] [place] 09:00:00 09:00:00 t; Lesa RODRIGUEZ Ph savannah Roberto M.D. 2018-10-02 2018-10-02 AppointEUNICE Ibrahim [facility] [id number] [place] 15:00:00 15:00:00 t; Asher JONES i, M.D. ans POURAN, M.D. 2018-09-25 2018-09-25 AppointEUNICE [facility] [id number] [place] 10:30:00 10:30:00 t; BRANT CEJA NP Health and Valery GUO NP Wellness [facility] 2018-09-22 2018-09-22 AppointEUNICE Ibrahim Francisca [id number] [place] 15:30:00 15:30:00 t; Asher JONES i, M.D. ans POURAN, M.D. 2018-08-22 2018-08-22 AppointEUNICE Paul [facility] [id number] [place] 09:30:00 09:30:00 t; Lesa BRYANT Ph savannah Rios M.D. 2018-07-29 2018-07-29 [facility] [id number] [place] 14:30:00 14:30:00 t; Lesa BRYANT savannah Rios M.D. 2018-07-25 2018-07-25 [facility] [id number] [place] 10:30:00 10:30:00 t; [facility] 2018-07-22 2018-07-22 [facility] [id number] [place] 11:15:00 11:15:00 t; Lesa BRYANT [facility] Valery MUNOZ, Orthopedics savannah BRYANT M.D. 2018-07-15 2018-07-15 [facility] [id number] [place] 10:30:00 10:30:00 t; Lesa BRYANT [facility] Physici TAMMY, Orthopedics savannah BRYANT M.D. 2018-07-09 2018-07-10 [facility] [id number] Memoria 18:05:00 00:00:00 Surgery r [place] 03 l [place] 2018-07-09 2018-07-09 [facility] [id number] [place] 13:00:00 13:00:00 t; Lesa BRYANT Ph savannah Rios M.D. 2018-06-30 2018-06-30 [facility] [id number] [place] 10:15:00 10:15:00 t; Lesa BRYANT [facility] Carlitosi TAMMY, Orthopedics savannah BRYANT M.D. 2018-06-24 2018-06-24 Outpatient [facility] [id number] Memoria 00:15:00 05:59:00 r Williams 02 l [place] 2018-06-20 2018-06-20 [facility] [id number] [place] 13:40:00 13:40:00 t; [facility], Orthopedics a SHANE MONROE 2018-06-19 2018-06-19 [facility] [id number] [place] 08:15:00 08:15:00 t; GEOVANNA HUERTA D.O. Physici KERRY, ans D.O. 2018-06-17 2018-06-17 [facility] T[facility] [id number] [place] 15:45:00 15:45:00 t; Lesa BRYANT [facility] Valery MUNOZ, Orthopedics ans Lesa BRYANT 2018-06-03 2018-06-03 [facility] [id number] [place] 13:45:00 13:45:00 t; GEOVNANA HUERTA D.O. [facility] sav[facility] Vora D.O. 2018-05-16 2018-05-16 [facility] [id number] [facility] 10:52:00 13:34:00 r [place] 01 l [place] nn Results Test Description Test Time Test Comments Results Result Comments Source CHEM PANEL 2021-10-09 21:33:00 Test Item Value Reference Range Interpretation Comme nts Glucose Lvl (test code = Glucose Lvl) 114 70-[facility] [id number] 21:33:00 Test Item Value Reference Range Interpretation Comments BUN (test code = BUN) 14 7-22 [facility] [id number] 21:33:00 Test Item Value Reference Range Interpretation Comments Creatinine Lvl (test code = Creatinine 1.36 0.50-1.40 Lvl) [facility] [id number] 21:33:00 Test Item Value Reference Range Interpretation Comments Sodium Lvl (test code = Sodium Lvl) 139 135-145 [facility] [id number] 21:33:00 Test Item Value Reference Range Interpretation Comments Potassium Lvl (test code = Potassium 4.6 3.5-5.1 Lvl) [facility] [employer] [id number] 21:33:00 Test Item Value Reference Range Interpretation Comments Chloride Lvl (test code = Chloride Lvl) 104 95-109 [facility] [id number] 21:33:00 Test Item Value Reference Range Interpretation Comments CO2 (test code = CO2) 29 24-32 [id number] 21:33:00 Test Item Value Reference Range Interpretation Comments Calcium Lvl (test code = Calcium Lvl) 9.3 8.5-10.5 [place] 102222-02-28 21:33:00 Test Item Value Reference Range Interpretation Comments AGAP (test code = AGAP) 10.6 10.0-20.0 [place] 102222-02-28 21:33:00 Test Item Value Reference Range Interpretation Comments eGFR (test code = eGFR) 64 [place] 762532-02-28 21:33:00 Test Item Value Reference Range Interpretation Comments WBC (test code = WBC) 5.9 3.7-10.4 [place] 762532-02-28 21:33:00 Test Item Value Reference Range Interpretation Comments RBC (test code = RBC) 4.85 4.70-6.10 [place] [address]-02-28 21:33:00 Test Item Value Reference Range Interpretation Comments Hgb (test code = Hgb) 13.7 14.0-18.0 [place] 762532-02-28 21:33:00 Test Item Value Reference Range Interpretation Comments Hct (test code = Hct) 41.5 42.0-54.0 [place] [address]-02-28 21:33:00 Test Item Value Reference Range Interpretation Comments MCV (test code = MCV) 85.4 80.0-94.0 [place] [address]-02-28 21:33:00 Test Item Value Reference Range Interpretation Comments MCH (test code = MCH) 28.2 pg 27.0-31.0 [place] 762532-02-28 21:33:00 Test Item Value Reference Range Interpretation Comments MCHC (test code = MCHC) 33.0 32.0-36.0 [place] 762532-02-28 21:33:00 Test Item Value Reference Range Interpretation Comments RDW (test code = RDW) 14.0 11.5-14.5 [place] 762532-02-28 21:33:00 Test Item Value Reference Range Interpretation Comments Platelet (test code = Platelet) 186 133-450 [place] 762532-02-28 21:33:00 Test Item Value Reference Range Interpretation Comments MPV (test code = MPV) 9.1 7.4-10.4 [place] 762532-02-28 21:33:00 Test Item Value Reference Range Interpretation Comments PT (test code = PT) 12.4 s 12.0-14.7 [place] 762532-02-28 21:33:00 Test Item Value Reference Range Interpretation Comments INR (test code = INR) 0.93 1 0.85-1.17 [place] 762532-02-28 21:33:00 Test Item Value Reference Range Interpretation Comments PTT (test code = PTT) 27.8 s 22.9-35.8 [place] 762532-02-28 21:33:00 Test Item Value Reference Range Interpretation Comments Segs (test code = Segs) 73.9 45.0-75.0 [place] 762532-02-28 21:33:00 Test Item Value Reference Range Interpretation Comments Lymphocytes (test code = Lymphocytes) 18.2 20.0-40.0 [place] 762532-02-28 21:33:00 Test Item Value Reference Range Interpretation Comments Monocytes (test code = Monocytes) 3.4 2.0-12.0 [place] 762532-02-28 21:33:00 Test Item Value Reference Range Interpretation Comments Eosinophils (test code = 4.2 See_Comment [A utomated message] The Eosinophils) system which ge nerated this result tra nsmitted reference range : <=4.0. The reference r caleb was not used to int erpret this result as normal/abnormal . [place] 762532-02-28 21:33:00 Test Item Value Reference Range Interpretation Comments Basophils (test code = 0.3 See_Comment [Aut omated message] The Basophils) system which ge nerated this result tra nsmitted reference range : <=1.0. The reference r caleb was not used to int erpret this result as normal/abnormal . [place] 762532-02-28 21:33:00 Test Item Value Reference Range Interpretation Comments Neutrophils # (test code = Neutrophils 4.4 1.5-8.1 #) [place] 762532-02-28 21:33:00 Test Item Value Reference Range Interpretation Comments Lymphocytes # (test code = Lymphocytes 1.1 1.0-5.5 #) [id number] 21:33:00 Test Item Value Reference Range Interpretation Comments Monocytes # (test code 0.2 See_Comment [Aut omated message] The = Monocytes #) system which generated this result tra nsmitted reference range : <=0.8. The reference r caleb was not used to int erpret this result as normal/abnormal . [facility]AllenKbjgxqsJIBGFLVUSV6194-16-33 21:33:00 Test Item Value Reference Range Interpretation Comments Eosinophils # (test code 0.2 See_Comment [A utomated message] The = Eosinophils #) system whic h generated this result tra nsmitted reference range : <=0.5. The reference r caleb was not used to int erpret this result as normal/abnormal . [facility] [id number] 20:31:00 Test Item Value Reference Range Interpretation Comments Glucose CSF (test code = Glucose CSF) 77 45-80 [facility]2022-02-28 20:31:00 Test Item Value Reference Range Interpretation Comments Protein CSF (test code = Protein CSF) 33 15-45 [place] 662612-02-28 20:31:00 Test Item Value Reference Range Interpretation Comments Tube Num CSF (test xxxxxxx (10/09/21 2:31 code = Tube Num CSF) PM) [place] 662612-02-28 20:31:00 Test Item Value Reference Range Interpretation Comments Color CSF (test code Colorless (10/09/21 2:31 = Color CSF) PM) [place] 662612-02-28 20:31:00 Test Item Value Reference Range Interpretation Comments Clarity CSF (test code = Clear (10/09/21 2:31 Clarity CSF) PM) [place] 662612-02-28 20:31:00 Test Item Value Reference Range Interpretation Comments Supernat CSF (test Colorless (10/09/21 2:31 code = Supernat CSF) PM) [place] 662612-02-28 20:31:00 Test Item Value Reference Range Interpretation Comments Nucleated Cells CSF 9 See_Comment [Automa leydi message] The (test code = Nucleated syste m which generated Cells CSF) this result tra nsmitted reference range : <=53. The reference r caleb was not used to int erpret this result as normal/abnormal . [facility] [employer]2022-02-28 20:31:00 Test Item Value Reference Range Interpretation Comments RBC CSF (test code = 280 See_Comment [Autom ated message] The RBC CSF) system which ge nerated this result transmit leydi reference range : <=03. The reference range was not used to interpr et this result as krishna l/abnormal. [facility] [id number] 20:31:00 Test Item Value Reference Range Interpretation Comments Neutrophils CSF (test 64 See_Comment [Auto mated message] The code = Neutrophils CSF) syst em which generated this result tra nsmitted reference range : <=6. The reference r caleb was not used to int erpret this result as normal/abnormal . [facility] [employer]2022-02-28 20:31:00 Test Item Value Reference Range Interpretation Comments Lymph CSF (test code = Lymph CSF) 30 40-80 [facility] [id number] 20:31:00 Test Item Value Reference Range Interpretation Comments Monocyte CSF (test code = Monocyte CSF) 6 15-45 [facility] HospitalEyefreightCulture: [id number] 20:31:00 Test Item Value Reference Range Interpretation Comments Culture: Anaerobic No Anaerobes Isolated (test code = Culture: After 3 Days Anaerobic) [facility] HospitalEyefreightGram Stain [id number] 20:31:00 Test Item Value Reference Range Interpretation Comments Gram Stain Report Few Wbc'S; No Organisms (test code = Gram Seen Stain Report) [facility] HospitalEyefreightCulture: CSF w/Gram [id number] 20:31:00 Test Item Value Reference Range Interpretation Comments Culture: CSF w/Gram 72 Hour Report - No Stain (test code = Growth, Holding Culture: CSF w/Gram Stain) [facility] [employer] [id number] 08:57:00 Test Item Value Reference Range Interpretation Comments Glucose Lvl (test code = Glucose Lvl) 109 70-99 [facility] [employer]2022-02-28 08:57:00 Test Item Value Reference Range Interpretation Comments BUN (test code = BUN) 17 7-22 [facility] [employer] [id number] 08:57:00 Test Item Value Reference Range Interpretation Comments Creatinine Lvl (test code = Creatinine 1.28 0.50-1.40 Lvl) [facility] [employer] [id number] 08:57:00 Test Item Value Reference Range Interpretation Comments Sodium Lvl (test code = Sodium Lvl) 140 135-145 [place] 102222-02-28 08:57:00 Test Item Value Reference Range Interpretation Comments Potassium Lvl (test code = Potassium 3.9 3.5-5.1 Lvl) [place] 102222-02-28 08:57:00 Test Item Value Reference Range Interpretation Comments Chloride Lvl (test code = Chloride Lvl) 108 95-109 [place] 102222-02-28 08:57:00 Test Item Value Reference Range Interpretation Comments CO2 (test code = CO2) 27 24-32 [place] 102222-02-28 08:57:00 Test Item Value Reference Range Interpretation Comments Calcium Lvl (test code = Calcium Lvl) 9.5 8.5-10.5 [place] 102222-02-28 08:57:00 Test Item Value Reference Range Interpretation Comments AGAP (test code = AGAP) 8.9 10.0-20.0 [place] 102222-02-28 08:57:00 Test Item Value Reference Range Interpretation Comments eGFR (test code = eGFR) 69 [place] [address]-02-28 08:57:00 Test Item Value Reference Range Interpretation Comments WBC (test code = WBC) 8.5 3.7-10.4 [place] [address]-02-28 08:57:00 Test Item Value Reference Range Interpretation Comments RBC (test code = RBC) 4.69 4.70-6.10 [place] [address]-02-28 08:57:00 Test Item Value Reference Range Interpretation Comments Hgb (test code = Hgb) 13.3 14.0-18.0 [address]02-28 08:57:00 Test Item Value Reference Range Interpretation Comments Hct (test code = Hct) 40.4 42.0-54.0 [place] [address]-02-28 08:57:00 Test Item Value Reference Range Interpretation Comments MCV (test code = MCV) 86.1 80.0-94.0 [address]02-28 08:57:00 Test Item Value Reference Range Interpretation Comments MCH (test code = MCH) 28.3 pg 27.0-31.0 [place] 762532-02-28 08:57:00 Test Item Value Reference Range Interpretation Comments MCHC (test code = MCHC) 32.9 32.0-36.0 [place] 762532-02-28 08:57:00 Test Item Value Reference Range Interpretation Comments RDW (test code = RDW) 14.1 11.5-14.5 [place] 762532-02-28 08:57:00 Test Item Value Reference Range Interpretation Comments Platelet (test code = Platelet) 192 133-450 [place] 762532-02-28 08:57:00 Test Item Value Reference Range Interpretation Comments MPV (test code = MPV) 9.2 7.4-10.4 [place] 762532-02-28 08:57:00 Test Item Value Reference Range Interpretation Comments R-time (test code = R-time) 6.0 min 5.0-10.0 [place] 762532-02-28 08:57:00 Test Item Value Reference Range Interpretation Comments K-time (test code = K-time) 1.4 min 1.0-3.0 [place] [address]-02-28 08:57:00 Test Item Value Reference Range Interpretation Comments Angle (test code = Angle) 69.7 degrees 53.0-72.0 [place] 762532-02-28 08:57:00 Test Item Value Reference Range Interpretation Comments Max Amp (test code = Max Amp) 66.3 mm 50.0-70.0 [place] 762532-02-28 08:57:00 Test Item Value Reference Range Interpretation Comments G-value (test code = G-value) 9.8 4.5-11.0 [place] 762532-02-28 08:57:00 Test Item Value Reference Range Interpretation Comments Ly30 (test code = 0.6 See_Comment [Automate d message] The Ly30) system which ge nerated this result transmit leydi reference range : <=7.5. The reference range was not used to interpr et this result as krishna l/abnormal. [place] 762532-02-28 08:57:00 Test Item Value Reference Range Interpretation Comments Coag Index (test code 1.2 1 See_Comment [Auto mated message] The = Coag Index) system which g enerated this result transmit leydi reference range : <=3.0. The reference range was not used to interpr et this result as krishna l/abnormal. [place] 762532-02-28 08:57:00 Test Item Value Reference Range Interpretation Comments TEG Data (test code = See Note (10/09/21 2:57 TEG Data) AM) [place] [address]-02-28 08:57:00 Test Item Value Reference Range Interpretation Comments PT (test code = PT) 12.1 s 12.0-14.7 [place] 762532-02-28 08:57:00 Test Item Value Reference Range Interpretation Comments INR (test code = INR) 0.90 1 0.85-1.17 [place] [address]-02-28 08:57:00 Test Item Value Reference Range Interpretation Comments PTT (test code = PTT) 27.6 s 22.9-35.8 [place] [address]-02-28 08:57:00 Test Item Value Reference Range Interpretation Comments Segs (test code = Segs) 52.0 45.0-75.0 [place] [address]-02-28 08:57:00 Test Item Value Reference Range Interpretation Comments Lymphocytes (test code = Lymphocytes) 33.8 20.0-40.0 [place] 762532-02-28 08:57:00 Test Item Value Reference Range Interpretation Comments Monocytes (test code = Monocytes) 8.0 2.0-12.0 [place] [address]-02-28 08:57:00 Test Item Value Reference Range Interpretation Comments Eosinophils (test code = 5.8 See_Comment [A utomated message] The Eosinophils) system which ge nerated this result tra nsmitted reference range : <=4.0. The reference r caleb was not used to int erpret this result as normal/abnormal . [place] 762532-02-28 08:57:00 Test Item Value Reference Range Interpretation Comments Basophils (test code = 0.4 See_Comment [Aut omated message] The Basophils) system which ge nerated this result tra nsmitted reference range : <=1.0. The reference r caleb was not used to int erpret this result as normal/abnormal . [address]02-28 08:57:00 Test Item Value Reference Range Interpretation Comments Neutrophils # (test code = Neutrophils 4.4 1.5-8.1 #) [address]02-28 08:57:00 Test Item Value Reference Range Interpretation Comments Lymphocytes # (test code = Lymphocytes 2.9 1.0-5.5 #) [address]02-28 08:57:00 Test Item Value Reference Range Interpretation Comments Monocytes # (test code 0.7 See_Comment [Aut omated message] The = Monocytes #) system which generated this result tra nsmitted reference range : <=0.8. The reference r caleb was not used to int erpret this result as normal/abnormal . [address]02-28 08:57:00 Test Item Value Reference Range Interpretation Comments Eosinophils # (test code 0.5 See_Comment [A utomated message] The = Eosinophils #) system whic h generated this result tra nsmitted reference range : <=0.5. The reference r caleb was not used to int erpret this result as normal/abnormal . [place] [address]-02-28 08:57:00 Test Item Value Reference Range Interpretation Comments TEG Interp (test Thrombelastograph results code = TEG are within reference ranges. Interp) Note that TEG does not show effect of NSAIDs or P2Y12 inhibitors. CPT:[id number] [place] 102222-02-28 02:07:26 Test Item Value Reference Range Interpretation Comments Glucose Lvl (test code = Glucose Lvl) 95 70-99 [place] 102222-02-28 02:07:26 Test Item Value Reference Range Interpretation Comments BUN (test code = BUN) 13 7-22 [place] [address]-02-28 02:07:26 Test Item Value Reference Range Interpretation Comments Creatinine Lvl (test code = Creatinine 1.24 0.50-1.40 Lvl) [place] 102222-02-28 02:07:26 Test Item Value Reference Range Interpretation Comments Sodium Lvl (test code = Sodium Lvl) 140 135-145 [place] 102222-02-28 02:07:26 Test Item Value Reference Range Interpretation Comments Potassium Lvl (test code = Potassium 3.7 3.5-5.1 Lvl) [place] 102222-02-28 02:07:26 Test Item Value Reference Range Interpretation Comments Chloride Lvl (test code = Chloride Lvl) 106 95-109 [place] 102222-02-28 02:07:26 Test Item Value Reference Range Interpretation Comments CO2 (test code = CO2) 30 24-32 [place] 102222-02-28 02:07:26 Test Item Value Reference Range Interpretation Comments Calcium Lvl (test code = Calcium Lvl) 9.5 8.5-10.5 [place] 102222-02-28 02:07:26 Test Item Value Reference Range Interpretation Comments AGAP (test code = AGAP) 7.7 10.0-20.0 [place] 102222-02-28 02:07:26 Test Item Value Reference Range Interpretation Comments eGFR (test code = eGFR) 72 [place] 762532-02-28 02:07:26 Test Item Value Reference Range Interpretation Comments WBC X 10x3 (test code = WBC X 10x3) 7.4 3.7-10.4 [place] 762532-02-28 02:07:26 Test Item Value Reference Range Interpretation Comments RBC X 10x6 (test code = RBC X 10x6) 5.06 4.70-6.10 [place] 762532-02-28 02:07:26 Test Item Value Reference Range Interpretation Comments Hgb (test code = Hgb) 14.0 14.0-18.0 [place] 762532-02-28 02:07:26 Test Item Value Reference Range Interpretation Comments Hct (test code = Hct) 43.5 42.0-54.0 [place] 762532-02-28 02:07:26 Test Item Value Reference Range Interpretation Comments MCV (test code = MCV) 85.9 80.0-94.0 [place] 762532-02-28 02:07:26 Test Item Value Reference Range Interpretation Comments MCH (test code = MCH) 27.7 pg 27.0-31.0 [place] 762532-02-28 02:07:26 Test Item Value Reference Range Interpretation Comments MCHC (test code = MCHC) 32.3 32.0-36.0 [place] [address]-02-28 02:07:26 Test Item Value Reference Range Interpretation Comments RDW (test code = RDW) 13.9 11.5-14.5 [place] [address]-02-28 02:07:26 Test Item Value Reference Range Interpretation Comments Platelet (test code = Platelet) 192 133-450 [place] 762532-02-28 02:07:26 Test Item Value Reference Range Interpretation Comments MPV (test code = MPV) 9.1 7.4-10.4 [place] [address]-02-28 02:07:26 Test Item Value Reference Range Interpretation Comments ACT (TEG) Rapid (test code = ACT (TEG) 128 s 86-118 Rapid) [address]02-28 02:07:26 Test Item Value Reference Range Interpretation Comments Split Point Rapid (test code = Split 0.7 min Point Rapid) [address]02-28 02:07:26 Test Item Value Reference Range Interpretation Comments R-time Rapid (test code = R-time 0.8 min 0.4-0.7 Rapid) [place] [address]-02-28 02:07:26 Test Item Value Reference Range Interpretation Comments K-time Rapid (test code = K-time 1.1 min 0.6-2.3 Rapid) [place] [address]-02-28 02:07:26 Test Item Value Reference Range Interpretation Comments Angle Rapid (test code = Angle 76 degrees 64-80 Rapid) [place] [address]-02-28 02:07:26 Test Item Value Reference Range Interpretation Comments Max Amplitude Rapid (test code = Max 71 mm 52-71 Amplitude Rapid) [place] [address]-02-28 02:07:26 Test Item Value Reference Range Interpretation Comments G-value Rapid (test code = G-value 12.1 5.0-11.6 Rapid) [place] [address]-02-28 02:07:26 Test Item Value Reference Range Interpretation Comments Estimated % Lysis Rapid 0.8 See_Comment [Au tomated message] The (test code = Estimated syste m which generated % Lysis Rapid) this result t ransmitted reference range : <=7.5. The reference r caleb was not used to int erpret this result as normal/abnormal . [place] 762532-02-28 02:07:26 Test Item Value Reference Range Interpretation Comments PT (test code = PT) 12.5 s 12.0-14.7 [place] 762532-02-28 02:07:26 Test Item Value Reference Range Interpretation Comments INR (test code = INR) 0.94 1 0.85-1.17 [place] 762532-02-28 02:07:26 Test Item Value Reference Range Interpretation Comments PTT (test code = PTT) 29.6 s 22.9-35.8 [place] 762532-02-28 02:07:26 Test Item Value Reference Range Interpretation Comments Segs (test code = Segs) 57.2 45.0-75.0 [place] [address]-02-28 02:07:26 Test Item Value Reference Range Interpretation Comments Lymphocytes (test code = Lymphocytes) 30.9 20.0-40.0 [place] 762532-02-28 02:07:26 Test Item Value Reference Range Interpretation Comments Monocytes (test code = Monocytes) 5.6 2.0-12.0 [place] 762532-02-28 02:07:26 Test Item Value Reference Range Interpretation Comments Eosinophils (test code = 5.6 See_Comment [A utomated message] The Eosinophils) system which ge nerated this result tra nsmitted reference range : <=4.0. The reference r caleb was not used to int erpret this result as normal/abnormal . [place] 762532-02-28 02:07:26 Test Item Value Reference Range Interpretation Comments Basophils (test code = 0.7 See_Comment [Aut omated message] The Basophils) system which ge nerated this result tra nsmitted reference range : <=1.0. The reference r caleb was not used to int erpret this result as normal/abnormal . [place] 762532-02-28 02:07:26 Test Item Value Reference Range Interpretation Comments Neutrophils # (test code = Neutrophils 4.3 1.5-8.1 #) [place] 762532-02-28 02:07:26 Test Item Value Reference Range Interpretation Comments Lymphocytes # (test code = Lymphocytes 2.3 1.0-5.5 #) [place] 762532-02-28 02:07:26 Test Item Value Reference Range Interpretation Comments Monocytes # (test code 0.4 See_Comment [Aut omated message] The = Monocytes #) system which generated this result tra nsmitted reference range : <=0.8. The reference r caleb was not used to int erpret this result as normal/abnormal . [facility]gapignTCVROHTIKX[facility]160[facility] 02:07:26 Test Item Value Reference Range Interpretation Comments Eosinophils # (test code 0.4 See_Comment [A utomated message] The = Eosinophils #) system whic h generated this result tra nsmitted reference range : <=0.5. The reference r caleb was not used to int erpret this result as normal/abnormal . [facility] CenterGhqdynhHGFKIVHONT8543-00-92 02:07:26 Test Item Value Reference Range Interpretation Comments Coronavirus (COVID-19) Not Detected (10/08/21 LIZBETH (test code = 8:07 PM) Coronavirus (COVID-19) LIZBETH) [facility] [employer] [id number] 01:55:00 Test Item Value Reference Range Interpretation Comments ABO/Rh (test code = ABO/Rh) O POS [facility] [employer] [id number] 01:55:00 Test Item Value Reference Range Interpretation Comments Antibody Scrn (test Negative (10/08/21 7:55 code = Antibody Scrn) PM) [facility] [employer]2022-02-22 19:46:00 Test Item Value Reference Range Interpretation Comments Glucose Lvl (test code = Glucose Lvl) 133 70-99 [facility] [employer]2022-02-22 19:46:00 Test Item Value Reference Range Interpretation Comments BUN (test code = BUN) 14 7-22 [employer]2022-02-22 19:46:00 Test Item Value Reference Range Interpretation Comments Creatinine Lvl (test code = Creatinine 1.22 0.50-1.40 Lvl) [employer]2022-02-22 19:46:00 Test Item Value Reference Range Interpretation Comments Sodium Lvl (test code = Sodium Lvl) 138 135-145 [facility] [employer]2022-02-22 19:46:00 Test Item Value Reference Range Interpretation Comments Potassium Lvl (test code = Potassium 4.1 3.5-5.1 Lvl) [place] 102222-02-22 19:46:00 Test Item Value Reference Range Interpretation Comments Chloride Lvl (test code = Chloride Lvl) 108 95-109 [place] 102222-02-22 19:46:00 Test Item Value Reference Range Interpretation Comments CO2 (test code = CO2) 26 24-32 [place] 102222-02-22 19:46:00 Test Item Value Reference Range Interpretation Comments Calcium Lvl (test code = Calcium Lvl) 8.6 8.5-10.5 [place] 102222-02-22 19:46:00 Test Item Value Reference Range Interpretation Comments AGAP (test code = AGAP) 8.1 10.0-20.0 [place] 102222-02-22 19:46:00 Test Item Value Reference Range Interpretation Comments eGFR (test code = eGFR) 73 [place] 762532-02-22 19:46:00 Test Item Value Reference Range Interpretation Comments WBC (test code = WBC) 6.2 3.7-10.4 [place] 762532-02-22 19:46:00 Test Item Value Reference Range Interpretation Comments RBC (test code = RBC) 4.91 4.70-6.10 [place] 762532-02-22 19:46:00 Test Item Value Reference Range Interpretation Comments Hgb (test code = Hgb) 13.7 14.0-18.0 [place] [address]-02-22 19:46:00 Test Item Value Reference Range Interpretation Comments Hct (test code = Hct) 42.1 42.0-54.0 [place] 762532-02-22 19:46:00 Test Item Value Reference Range Interpretation Comments MCV (test code = MCV) 85.8 80.0-94.0 [place] [address]-02-22 19:46:00 Test Item Value Reference Range Interpretation Comments MCH (test code = MCH) 27.9 pg 27.0-31.0 [place] [address]-02-22 19:46:00 Test Item Value Reference Range Interpretation Comments MCHC (test code = MCHC) 32.6 32.0-36.0 [place] 762532-02-22 19:46:00 Test Item Value Reference Range Interpretation Comments RDW (test code = RDW) 14.3 11.5-14.5 [place] 762532-02-22 19:46:00 Test Item Value Reference Range Interpretation Comments Platelet (test code = Platelet) 153 133-450 [place] 762532-02-22 19:46:00 Test Item Value Reference Range Interpretation Comments MPV (test code = MPV) 9.5 7.4-10.4 [place] 762532-02-22 19:46:00 Test Item Value Reference Range Interpretation Comments PT (test code = PT) 12.2 s 12.0-14.7 [place] 762532-02-22 19:46:00 Test Item Value Reference Range Interpretation Comments INR (test code = INR) 0.91 1 0.85-1.17 [place] 762532-02-22 19:46:00 Test Item Value Reference Range Interpretation Comments PTT (test code = PTT) 27.1 s 22.9-35.8 [place] 762532-02-22 19:46:00 Test Item Value Reference Range Interpretation Comments Plt Morph (test code = Normal (10/03/21 1:46 Plt Morph) PM) [place] 762532-02-22 19:46:00 Test Item Value Reference Range Interpretation Comments Segs (test code = Segs) 83.7 45.0-75.0 [place] 762532-02-22 19:46:00 Test Item Value Reference Range Interpretation Comments Lymphocytes (test code = Lymphocytes) 12.3 20.0-40.0 [place] 762532-02-22 19:46:00 Test Item Value Reference Range Interpretation Comments Monocytes (test code = Monocytes) 1.6 2.0-12.0 [place] [address]-02-22 19:46:00 Test Item Value Reference Range Interpretation Comments Eosinophils (test code = 2.0 See_Comment [A utomated message] The Eosinophils) system which ge nerated this result tra nsmitted reference range : <=4.0. The reference r caleb was not used to int erpret this result as normal/abnormal . [place] 762532-02-22 19:46:00 Test Item Value Reference Range Interpretation Comments Basophils (test code = 0.4 See_Comment [Aut omated message] The Basophils) system which ge nerated this result tra nsmitted reference range : <=1.0. The reference r caleb was not used to int erpret this result as normal/abnormal . [facility]OazxceuTUIWDCKUIT8147-86-01 19:46:00 Test Item Value Reference Range Interpretation Comments Neutrophils # (test code = Neutrophils 5.2 1.5-8.1 #) [facility] McAllenTmzltcoUEWVTJTZPT3780-14-29 19:46:00 Test Item Value Reference Range Interpretation Comments Lymphocytes # (test code = Lymphocytes 0.8 1.0-5.5 #) [facility] McAllenKelcupmWLWZZDVPUQ4038-10-71 19:46:00 Test Item Value Reference Range Interpretation Comments Monocytes # (test code 0.1 See_Comment [Aut omated message] The = Monocytes #) system which generated this result tra nsmitted reference range : <=0.8. The reference r caleb was not used to int erpret this result as normal/abnormal . [facility] McAllenQkvkfqbKRTISKZNFR9130-04-81 19:46:00 Test Item Value Reference Range Interpretation Comments Eosinophils # (test code 0.1 See_Comment [A utomated message] The = Eosinophils #) system whic h generated this result tra nsmitted reference range : <=0.5. The reference r caleb was not used to int erpret this result as normal/abnormal . [facility] [id number] 17:31:00 Test Item Value Reference Range Interpretation Comments ABO/Rh (test code = ABO/Rh) O POS [facility] [id number] 17:31:00 Test Item Value Reference Range Interpretation Comments Antibody Scrn (test Negative (10/02/21 code = Antibody Scrn) 11:31 AM) [facility] [id number] 17:31:00 Test Item Value Reference Range Interpretation Comments Glucose Lvl (test code = Glucose Lvl) 92 70-99 [facility] [id number] 17:31:00 Test Item Value Reference Range Interpretation Comments BUN (test code = BUN) 17 - [facility] [id number] 17:31:00 Test Item Value Reference Range Interpretation Comments Creatinine Lvl (test code = Creatinine 1.21 0.50-1.40 Lvl) [place] 102222-02-21 17:31:00 Test Item Value Reference Range Interpretation Comments Sodium Lvl (test code = Sodium Lvl) 140 135-145 [place] 102222-02-21 17:31:00 Test Item Value Reference Range Interpretation Comments Potassium Lvl (test code = Potassium 4.2 3.5-5.1 Lvl) [place] 102222-02-21 17:31:00 Test Item Value Reference Range Interpretation Comments Chloride Lvl (test code = Chloride Lvl) 108 95-109 [place] 102222-02-21 17:31:00 Test Item Value Reference Range Interpretation Comments CO2 (test code = CO2) 26 24-32 [place] 102222-02-21 17:31:00 Test Item Value Reference Range Interpretation Comments Calcium Lvl (test code = Calcium Lvl) 9.4 8.5-10.5 [place] 102222-02-21 17:31:00 Test Item Value Reference Range Interpretation Comments AGAP (test code = AGAP) 10.2 10.0-20.0 [place] 102222-02-21 17:31:00 Test Item Value Reference Range Interpretation Comments eGFR (test code = eGFR) 74 [place] 762532-02-21 17:31:00 Test Item Value Reference Range Interpretation Comments PTT (test code = PTT) 28.1 s 22.9-35.8 [place] [address]-02-21 17:31:00 Test Item Value Reference Range Interpretation Comments PT (test code = PT) 11.8 s 12.0-14.7 [place] [address]-02-21 17:31:00 Test Item Value Reference Range Interpretation Comments INR (test code = INR) 0.87 1 0.85-1.17 [address]02-21 17:31:00 Test Item Value Reference Range Interpretation Comments WBC (test code = WBC) 5.4 3.7-10.4 [place] [address]-02-21 17:31:00 Test Item Value Reference Range Interpretation Comments RBC (test code = RBC) 4.90 4.70-6.10 [place] [address]-02-21 17:31:00 Test Item Value Reference Range Interpretation Comments Hgb (test code = Hgb) 13.7 14.0-18.0 [facility] McAllenGvedeujZDJKOCQKHU4732-67-41 17:31:00 Test Item Value Reference Range Interpretation Comments Hct (test code = Hct) 42.0 42.0-54.0 [facility] McAllenUokwaisLZUGANMEMO7987-53-21 17:31:00 Test Item Value Reference Range Interpretation Comments MCV (test code = MCV) 85.6 80.0-94.0 [facility] McAllenZzhjpssRMRHMFCFQE2496-80-62 17:31:00 Test Item Value Reference Range Interpretation Comments MCH (test code = MCH) 27.9 pg 27.0-31.0 [facility] McAllenBopnsvbDUCTSVTIJI5454-57-95 17:31:00 Test Item Value Reference Range Interpretation Comments MCHC (test code = MCHC) 32.6 32.0-36.0 [facility] McAllenFohkkrlYZONXALVGG7775-84-16 17:31:00 Test Item Value Reference Range Interpretation Comments RDW (test code = RDW) 14.1 11.5-14.5 [facility] McAllenTfbykvqHIQEJCGCLE5992-11-34 17:31:00 Test Item Value Reference Range Interpretation Comments Platelet (test code = Platelet) 173 133-450 [facility] McAllenDutvyvnZVRJDXXBAO2274-36-24 17:31:00 Test Item Value Reference Range Interpretation Comments MPV (test code = MPV) 10.1 7.4-10.4 [facility] McAllenOwnwbrjHKCKYAZTZX7235-27-90 17:31:00 Test Item Value Reference Range Interpretation Comments Segs (test code = Segs) 54.1 45.0-75.0 [facility] McAllenTpkkcgvSNAMMQMKRO8395-11-53 17:31:00 Test Item Value Reference Range Interpretation Comments Lymphocytes (test code = Lymphocytes) 30.9 20.0-40.0 [place] 762532-02-21 17:31:00 Test Item Value Reference Range Interpretation Comments Monocytes (test code = Monocytes) 6.7 2.0-12.0 [place] 762532-02-21 17:31:00 Test Item Value Reference Range Interpretation Comments Eosinophils (test code = 7.7 See_Comment [A utomated message] The Eosinophils) system which ge nerated this result tra nsmitted reference range : <=4.0. The reference r caleb was not used to int erpret this result as normal/abnormal . [place] 762532-02-21 17:31:00 Test Item Value Reference Range Interpretation Comments Basophils (test code = 0.6 See_Comment [Aut omated message] The Basophils) system which ge nerated this result tra nsmitted reference range : <=1.0. The reference r caleb was not used to int erpret this result as normal/abnormal . [facility] McAllenVltuwveQYWZJAQWWK2680-25-37 17:31:00 Test Item Value Reference Range Interpretation Comments Neutrophils # (test code = Neutrophils 2.9 1.5-8.1 #) [facility]4602-68-61 17:31:00 Test Item Value Reference Range Interpretation Comments Lymphocytes # (test code = Lymphocytes 1.7 1.0-5.5 #) [facility] McAllenRcyvivxQRBSJLMPDQ8517-85-50 17:31:00 Test Item Value Reference Range Interpretation Comments Monocytes # (test code 0.4 See_Comment [Aut omated message] The = Monocytes #) system which generated this result tra nsmitted reference range : <=0.8. The reference r caleb was not used to int erpret this result as normal/abnormal . [facility] McAllenIdgvxdvZTTHENEIOJ1432-51-42 17:31:00 Test Item Value Reference Range Interpretation Comments Eosinophils # (test code 0.4 See_Comment [A utomated message] The = Eosinophils #) system whic h generated this result tra nsmitted reference range : <=0.5. The reference r caleb was not used to int erpret this result as normal/abnormal . [facility] CenterXehjaafYPLNZPXUML5385-00-79 17:31:00 Test Item Value Reference Range Interpretation Comments Coronavirus (COVID-19) Not Detected (10/02/21 LIZBETH (test code = 11:31 AM) Coronavirus (COVID-19) LIZBETH) [facility] LZHGTYRYC0015-03-03 17:31:00 Test Item Value Reference Range Interpretation Comments Hgb A1C (test code = Hgb A1C) 5.7 [facility] McAllenYvlnxquAGFRCSNKFT8391-65-43 07:37:00 Test Item Value Reference Range Interpretation Comments Sed Rate (test code = 2 See_Comment [Auto mated message] The Sed Rate) system which ge nerated this result transmit leydi reference range : <=15. The reference range was not used to interpr et this result as krishna l/abnormal. [facility]jkfPUEIDETZDJ9547-74-10 07:37:00 Test Item Value Reference Range Interpretation Comments C-REACTIVE PROTEIN (test code = 8.4 C-REACTIVE PROTEIN) [place] 102221-09-30 01:10:00 Test Item Value Reference Range Interpretation Comments Glucose Lvl (test code = Glucose Lvl) 115 70-99 [place] 102221-09-30 01:10:00 Test Item Value Reference Range Interpretation Comments BUN (test code = BUN) 13 7-22 [place] 102221-09-30 01:10:00 Test Item Value Reference Range Interpretation Comments Creatinine Lvl (test code = Creatinine 1.21 0.50-1.40 Lvl) [place] 102221-09-30 01:10:00 Test Item Value Reference Range Interpretation Comments Sodium Lvl (test code = Sodium Lvl) 141 135-145 [place] 102221-09-30 01:10:00 Test Item Value Reference Range Interpretation Comments Potassium Lvl (test code = Potassium 3.8 3.5-5.1 Lvl) [place] 102221-09-30 01:10:00 Test Item Value Reference Range Interpretation Comments Chloride Lvl (test code = Chloride Lvl) 110 95-109 [place] 102221-09-30 01:10:00 Test Item Value Reference Range Interpretation Comments CO2 (test code = CO2) 25 24-32 [place] 102221-09-30 01:10:00 Test Item Value Reference Range Interpretation Comments Calcium Lvl (test code = Calcium Lvl) 9.1 8.5-10.5 [place] 102221-09-30 01:10:00 Test Item Value Reference Range Interpretation Comments AGAP (test code = AGAP) 9.8 10.0-20.0 [place] 102221-09-30 01:10:00 Test Item Value Reference Range Interpretation Comments eGFR (test code = eGFR) 74 [place] 762531-09-30 01:10:00 Test Item Value Reference Range Interpretation Comments WBC X 10x3 (test code = WBC X 10x3) 5.9 3.7-10.4 [place] 762531-09-30 01:10:00 Test Item Value Reference Range Interpretation Comments RBC X 10x6 (test code = RBC X 10x6) 4.92 4.70-6.10 [facility] McAllenRkrpyihUVNLIAJLCT6062-30-54 01:10:00 Test Item Value Reference Range Interpretation Comments Hgb (test code = Hgb) 13.8 14.0-18.0 [place] 762531-09-30 01:10:00 Test Item Value Reference Range Interpretation Comments Hct (test code = Hct) 41.8 42.0-54.0 [facility] McAllenBkkhlpmFSBTRZTZKL1235-82-80 01:10:00 Test Item Value Reference Range Interpretation Comments MCV (test code = MCV) 84.9 80.0-94.0 [place] 762531-09-30 01:10:00 Test Item Value Reference Range Interpretation Comments MCH (test code = MCH) 28.0 pg 27.0-31.0 [facility] McAllenZzaegddXCFDGTLCCV7146-10-48 01:10:00 Test Item Value Reference Range Interpretation Comments MCHC (test code = MCHC) 33.0 32.0-36.0 [place] 762531-09-30 01:10:00 Test Item Value Reference Range Interpretation Comments RDW (test code = RDW) 14.0 11.5-14.5 [place] 762531-09-30 01:10:00 Test Item Value Reference Range Interpretation Comments Platelet (test code = Platelet) 171 133-450 [facility] McAllenPlcnhmvZGSOUYPFHS5816-06-46 01:10:00 Test Item Value Reference Range Interpretation Comments MPV (test code = MPV) 8.8 7.4-10.4 [place] 762531-09-30 01:10:00 Test Item Value Reference Range Interpretation Comments Segs (test code = Segs) 42.2 45.0-75.0 [place] 762531-09-30 01:10:00 Test Item Value Reference Range Interpretation Comments Lymphocytes (test code = Lymphocytes) 37.9 20.0-40.0 [place] 762531-09-30 01:10:00 Test Item Value Reference Range Interpretation Comments Monocytes (test code = Monocytes) 7.0 2.0-12.0 [place] 762531-09-30 01:10:00 Test Item Value Reference Range Interpretation Comments Eosinophils (test code = 11.6 See_Comment [A utomated message] The Eosinophils) system which ge nerated this result tra nsmitted reference range : <=4.0. The reference r caleb was not used to int erpret this result as normal/abnormal . [facility] McAllenYlmqhsiWBJBOOHDRQ2581-68-44 01:10:00 Test Item Value Reference Range Interpretation Comments Basophils (test code = 1.3 See_Comment [Aut omated message] The Basophils) system which ge nerated this result tra nsmitted reference range : <=1.0. The reference r caleb was not used to int erpret this result as normal/abnormal . [facility] McAllenZmrbvlgIKJIBTGWEI4576-09-68 01:10:00 Test Item Value Reference Range Interpretation Comments Neutrophils # (test code = Neutrophils 2.5 1.5-8.1 #) [facility] McAllenCgdbvcxPMGYEYIGJU2845-96-20 01:10:00 Test Item Value Reference Range Interpretation Comments Lymphocytes # (test code = Lymphocytes 2.2 1.0-5.5 #) [facility] McAllenVyhdnloLCJLCGXCCG4319-66-63 01:10:00 Test Item Value Reference Range Interpretation Comments Monocytes # (test code 0.4 See_Comment [Aut omated message] The = Monocytes #) system which generated this result tra nsmitted reference range : <=0.8. The reference r caleb was not used to int erpret this result as normal/abnormal . [facility] McAllenCyihahsQEJAIMMVCD9994-75-26 01:10:00 Test Item Value Reference Range Interpretation Comments Eosinophils # (test code 0.7 See_Comment [A utomated message] The = Eosinophils #) system whic h generated this result tra nsmitted reference range : <=0.5. The reference r caleb was not used to int erpret this result as normal/abnormal . [facility] McAllenSwynsqiPEHFASGBDS5952-43-33 01:10:00 Test Item Value Reference Range Interpretation Comments Basophils # (test code 0.1 See_Comment [Aut omated message] The = Basophils #) system which generated this result tra nsmitted reference range : <=0.2. The reference r caleb was not used to int erpret this result as normal/abnormal . [facility] CenterBookBub [id number] 18:20:00 Test Item Value Reference Range Interpretation Comments eGFR (test code = eGFR) 90 [facility]Book[facility] [id number] 18:20:00 Test Item Value Reference Range Interpretation Comments AGAP (test code = AGAP) 4.2 10.0-20.0 [facility]2018-11-27 18:20:00 Test Item Value Reference Range Interpretation Comments Calcium Lvl (test code = Calcium Lvl) 8.6 8.5-10.5 [facility]2018-11-27 18:20:00 Test Item Value Reference Range Interpretation Comments CO2 (test code = CO2) 30 24-32 [facility]2018-11-27 18:20:00 Test Item Value Reference Range Interpretation Comments Chloride Lvl (test code = Chloride Lvl) 109 95-109 [facility]2018-11-27 18:20:00 Test Item Value Reference Range Interpretation Comments Potassium Lvl (test code = Potassium 4.2 3.5-5.1 Lvl) [facility]2018-11-27 18:20:00 Test Item Value Reference Range Interpretation Comments Sodium Lvl (test code = Sodium Lvl) 139 135-145 [facility]2018-11-27 18:20:00 Test Item Value Reference Range Interpretation Comments Glucose Lvl (test code = Glucose Lvl) 111 70-99 [facility]2018-11-27 18:20:00 Test Item Value Reference Range Interpretation Comments BUN (test code = BUN) 18 7-22 [facility]2018-11-27 18:20:00 Test Item Value Reference Range Interpretation Comments Creatinine Lvl (test code = Creatinine 1.18 0.50-1.40 Lvl) [facility][U] XRAY ELBOW 2 VWS RIGHT [id number] 15:57:00Images acquired, not reported on this accession number.[facility][U] XRAY WRIST MIN 3 VWS RIGHT [id number] 15:57:00Images acquired, not reported on this accession number.[facility]
[2022-05-14] MEDS ORDERED: ACETAMINOPHEN 500 MG TAB ONE (12:48)
[2022-05-14] MEDS ORDERED: KETOROLAC 30 MG/ML INJ ONE (12:48)
[2022-05-14] MEDS ORDERED: NA CHLORIDE 0.9% 1,000 ML ONE (12:49)
[2022-05-14] MEDS ORDERED: METOCLOPRAMIDE 10 MG/2mL INJ ONE (12:49)
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
[2022-05-14] MEDS ORDERED: dexAMETHasone 10 MG/ML VIAL ONE (13:40)
[2022-05-14 14:18] LABS: Absolute Lymphocytes (CBC) 2.1 K/uL (0.7-4.9); Hematocrit 38.2 % (39.6-49.0); Lymphocytes % 34.9 % (15.3-44.8); MCV 83.8 fL (80-100); MPV 9.2 fL (7.6-11.3); RBC Red Blood Cell Count 4.56 M/uL (4.33-5.43)
[2022-05-14 14:29] LABS: Albumin 3.1 g/dL (3.4-5.0); Bilirubin Total 0.3 mg/dL (0.2-1.0); Potassium 4.4 mmol/L (3.5-5.1); Protein, Total 6.5 g/dL (6.4-8.2)
--- NOTE | 2022-05-14 15:23 | ER ---
Nurse's Notes [facility] Name: Terry Akins Sr Age: 41 yrs Sex: Male : 1980 Arrival Date: 05/14/2022 Time: 11:46 Bed 8 Private MD: Diagnosis: Low back pain Presentation: 05/14 11:54 Chief complaint: Patient states: he was evaluated at this facility 05/11/2022 when he ap3 was transferred and had a spinal tap. patient states he believes he is leaking spinal fluid from his tap site. Patient complains of severe headache and neck pain that is greater than a 10 on a scale of 0-10. Coronavirus screen: At this time, the client does not indicate any symptoms associated with coronavirus-19. Ebola Screen: No symptoms or risks identified at this time. Initial Sepsis Screen: Does the patient meet any 2 criteria? No. Patient's initial sepsis screen is negative. Does the patient have a suspected source of infection? No. Patient's initial sepsis screen is negative. Risk Assessment: Do you want to hurt yourself or someone else? Patient reports no desire to harm self or others. Onset of symptoms was May 11, 2022. 11:54 Method Of Arrival: Ambulatory ap3 11:54 Acuity: SARITHA 2 ap3 Triage Assessment: 11:59 General: Appears uncomfortable, Behavior is calm, cooperative. Pain: Complains of pain ap3 in head and neck. Neuro: Level of Consciousness is awake, alert, obeys commands, Oriented to person, place, time, situation, Gait is steady, Speech is normal, Facial symmetry appears normal. Neuro: Reports headache. Cardiovascular: Patient's skin is warm and dry. Respiratory: Airway is patent Respiratory effort is even, unlabored, Respiratory pattern is regular, symmetrical. Historical: - Allergies: 12:00 No Known Allergies; ap3 - PMHx: 11:57 Hypertensive disorder; Migraine; ap3 - PSHx: 11:57 Appendectomy; carpal tunnel right; hernia; left hand tendonitis; Nerve transplantion; ap3 shunt; - Immunization history:: Client reports receiving the 2nd dose of the Covid vaccine. - Social history:: Smoking status: Reported history of juuling and/or vaping. Screenin:59 Abuse screen: Denies threats or abuse. Nutritional screening: No deficits noted. ap3 Tuberculosis screening: No symptoms or risk factors identified. 12:28 Fall Risk None identified. No fall in past 12 months (0 pts). No secondary diagnosis (0 db pts). No IV (0 pts). Ambulatory Aid- None/Bed Rest/Nurse Assist (0 pts). Gait- Normal/Bed Rest/Wheelchair (0 pts) Mental Status- Oriented to own ability (0 pts). Total Moss Fall Scale indicates No Risk (0-24 pts). Assessment: 11:47 Reassessment: Pt ambulated with steady gait to ER exam room 8. Respirations even and ss unlabored. Pt talking calmly as he is walking down the hallway. c/o neck pain ever since he had a spinal tap at [facility] in [place]. 12:10 Reassessment: Pt pressed call light. PT is upset, crying stating, "I hurt everywhere ss and that doctor doesn't seem to care!" Attempted to give verbal reassurance that the doctor has to preform his assessment and that is the beginning process of his ER visit. Pt is still upset, loudly talking about how he is in pain and that [place] [facility] told him that he has spinal fluid leaking. 12:20 Reassessment: Pt pressed call light again, BRYN Starkey at bedside. ss 12:28 Reassessment: Patient is alert, oriented x 3, equal unlabored respirations, skin db warm/dry/pink. General: Appears in no apparent distress. comfortable, Behavior is agitated, anxious. Pain: Complains of pain in back of head, neck and back Pain began gradually, 2-3 days ago. Neuro: Level of Consciousness is awake, alert, obeys commands, Oriented to person, place, time, Appropriate for age Speech is normal, Facial symmetry appears normal, Pupils are PERRLA, Neuro:. Cardiovascular: No deficits noted. Reports None. Respiratory: No deficits noted. Airway is patent. GI: No deficits noted. : No deficits noted. EENT: No deficits noted. Derm: No deficits noted. Musculoskeletal: No deficits noted. 12:33 Reassessment: Patient in the hallway yelling states "I'm going to have a stroke. My db blood pressure is high. Help I need pain medication." Patient is loud, agitated and yelling at staff. 12:43 Reassessment: PT refusing blood patch. ss 12:54 Reassessment: Patient to CT. db 13:12 Reassessment: Patient appears in no apparent distress at this time. No changes from db previously documented assessment. Patient and/or family updated on plan of care and expected duration. Pain level reassessed. Patient is alert, oriented x 3, equal unlabored respirations, skin warm/dry/pink. Patient ambulatory to restroom with steady gate. In no apparent distress. General: Appears in no apparent distress. comfortable, Behavior is calm, cooperative, quiet. 13:54 Reassessment: Patient labs hemolyzed. Needs recollect. Unable to obtain specimen or IV db line at this time. 15:05 Reassessment: Patient appears in no apparent distress at this time. No changes from db previously documented assessment. Patient and/or family updated on plan of care and expected duration. Pain level reassessed. Patient is alert, oriented x 3, equal unlabored respirations, skin warm/dry/pink. Patient is sitting up talking on the phone. Pain: Complains of pain in back Pain currently is 10 out of 10 on a pain scale. 16:05 Reassessment: Patient appears in no apparent distress at this time. No changes from db previously documented assessment. Patient and/or family updated on plan of care and expected duration. Pain level reassessed. Patient is alert, oriented x 3, equal unlabored respirations, skin warm/dry/pink. Patient states feeling better. Patient states symptoms have improved. 16:25 Reassessment: Patient states feeling better. Patient states symptoms have improved. ss Vital Signs: 11:54 BP 190 / 123; Pulse 71; Resp 18; Temp 98.4; Pulse Ox 100% ; Weight 149.69 kg; Height 6 ap3 ft. 3 in. (190.50 cm); Pain 10/10; 12:27 BP 184 / 109; Pulse 68; Resp 18; Pulse Ox 100% ; Pain 10/10; db 13:00 BP 180 / 98; Pulse 61; Resp 18; Pulse Ox 100% ; Pain 10/10; db 15:34 BP 158 / 89; Pulse 57; Resp 16; Pulse Ox 100% ; Pain 5/10; db 11:54 Body Mass Index 41.25 (149.69 kg, 190.50 cm) ap3 Omar Coma Score: 12:27 Eye Response: spontaneous(4). Verbal Response: oriented(5). Motor Response: obeys db commands(6). Total: 15. ED Course: 11:46 Patient arrived in ED. rg4 11:49 Arm band placed on Patient placed in an exam room, on a stretcher. ll1 11:52 Akira De León MD is Attending Physician. jr11 11:57 Triage completed. ap3 12:00 Patient has correct armband on for positive identification. Bed in low position. Call ap3 light in reach. Pulse ox on. NIBP on. Door closed. Noise minimized. 12:16 Jaky Lara, RN is Primary Nurse. db 13:32 Missed attempt(s): 20 gauge in right antecubital area. Bleeding controlled, band aid db applied, catheter tip intact. 13:54 Missed attempt(s): 22 gauge in right hand. Bleeding controlled, band aid applied, ph catheter tip intact. Missed attempt(s): 22 gauge in left antecubital area. Bleeding controlled, band aid applied, catheter tip intact. 14:02 Inserted saline lock: 22 gauge in left antecubital area, using aseptic technique. Blood ss collected. 16:25 No provider procedures requiring assistance completed. IV discontinued, intact, ss bleeding controlled, No redness/swelling at site. Pressure dressing applied. Administered Medications: 12:53 Drug: Tylenol 1000 mg Route: PO; db 15:45 Follow up: Response: No adverse reaction db 14:10 Drug: Dexamethasone 10 mg Route: IVP; Site: left antecubital; db 15:44 Follow up: Response: No adverse reaction db 14:11 Drug: NS 0.9% 1000 ml Route: IV; Rate: 1 bolus; Site: left antecubital; db 15:46 Follow up: Response: No adverse reaction db 16:15 Follow up: Response: No adverse reaction; IV Status: Completed infusion; IV Intake: db 1000ml 14:11 Drug: Reglan (metoCLOPramide) 10 mg Route: IVP; Site: left antecubital; db 15:45 Follow up: Response: No adverse reaction db 14:11 Drug: Ketorolac 15 mg Route: IVP; Site: left antecubital; db 15:45 Follow up: Response: No adverse reaction db 15:43 Drug: Dilaudid (HYDROmorphone) 0.5 mg Route: IVP; Site: left antecubital; db 16:28 Follow up: Response: No adverse reaction db 15:43 Drug: Lidoderm Patch 5 % (700 mg/patch) 1 patches {Note: upper middle back.} Route: db Topical; Site: affected area; 16:28 Follow up: Response: No adverse reaction db Medication: 12:00 VIS not applicable for this client. ap3 Intake: 16:15 IV: 1000ml; Total: 1000ml. db Outcome: 15:23 Discharge ordered by . [email or web address] 16:25 Discharged to home ambulatory. 16:25 Condition: good 16:25 Discharge instructions given to patient, Instructed on discharge instructions, follow up and referral plans. medication usage, Demonstrated understanding of instructions, follow-up care, medications, Prescriptions given X 2. 16:26 Patient left the ED. ss Signatures: Natasha Holm RN RN ss Marisol Melo RN RN Diane Garcia4 Lisa Fuller RN RN ap3 Anand Badillo RN RN ll1 Akira De León MD MD jr11 Jaky Lara RN RN db
--- NOTE | 2022-05-14 15:23 | EDPHYS ---
Physician Documentation [facility] Name: Terry Akins Sr Age: 41 yrs Sex: Male : 1980 Arrival Date: 05/14/2022 Time: 11:46 Bed 8 Private MD: ED Physician Akira De León HPI: 05/14 12:21 This 41 yrs old Black Male presents to ER via Ambulatory with complaints of Neck Pain, jr11 <24hrs Old, Back Pain. 12:21 The patient or guardian complains of decreased range of motion, pain, that is acute. jr11 The symptoms are located diffusely. Onset: The symptoms/episode began/occurred yesterday. Context: The problem was sustained denies trauma, states he went to [facility] for a spinal tap, now with pain from base of skull to bottom . Associated signs and symptoms: Pertinent negatives: constipation, numbness, tingling, weakness. The pain does not radiate. Modifying factors: The symptoms are alleviated by nothing. the symptoms are aggravated by movement. Severity of symptoms: At their worst the symptoms were severe, in the emergency department the symptoms are unchanged. Historical: - Allergies: 12:00 No Known Allergies; ap3 - PMHx: 11:57 Hypertensive disorder; Migraine; ap3 - PSHx: 11:57 Appendectomy; carpal tunnel right; hernia; left hand tendonitis; Nerve transplantion; ap3 shunt; - Immunization history:: Client reports receiving the 2nd dose of the Covid vaccine. - Social history:: Smoking status: Reported history of juuling and/or vaping. ROS: 12:47 All other systems are negative. jr11 Exam: 12:47 Constitutional: This is a well developed, well nourished patient who is awake, alert, jr11 and in no acute distress. Head/Face: Normocephalic, atraumatic. Eyes: Extra-ocular motions intact. Lids and lashes normal. Conjunctiva and sclera are non-icteric and not injected. Cornea within normal limits. Periorbital areas with no swelling, redness, or edema. ENT: Nares patent. No nasal discharge, no septal abnormalities noted. Oropharynx with no redness, swelling, or masses, exudates, or evidence of obstruction, uvula midline. Mucous membranes moist. Neck: Trachea midline, no thyromegaly or masses palpated, and no cervical lymphadenopathy. Supple, full range of motion without nuchal rigidity, or vertebral point tenderness. No Meningismus. Chest/axilla: Normal chest wall appearance and motion. Nontender with no deformity. No lesions are appreciated. Cardiovascular: Regular rate and rhythm with a normal S1 and S2. No gallops, murmurs, or rubs. Normal PMI, no JVD. No pulse deficits. Respiratory: Lungs have equal breath sounds bilaterally, clear to auscultation and percussion. No rales, rhonchi or wheezes noted. No increased work of breathing, no retractions or nasal flaring. Abdomen/GI: Soft, non-tender, with normal bowel sounds. No distension or tympany. No guarding or rebound. No evidence of tenderness throughout. Back: diffuse ttp, no midline, L4-5 tap site with resolving ecchymosis, N/V intact distally MS/ Extremity: Pulses equal, no cyanosis. Neurovascular intact. Full, normal range of motion. Neuro: Awake and alert, GCS 15, oriented to person, place, time, and situation. No gross motor or sensory deficits. Vital Signs: 11:54 BP 190 / 123; Pulse 71; Resp 18; Temp 98.4; Pulse Ox 100% ; Weight 149.69 kg; Height 6 ap3 ft. 3 in. (190.50 cm); Pain 10/10; 12:27 BP 184 / 109; Pulse 68; Resp 18; Pulse Ox 100% ; Pain 10/10; db 13:00 BP 180 / 98; Pulse 61; Resp 18; Pulse Ox 100% ; Pain 10/10; db 15:34 BP 158 / 89; Pulse 57; Resp 16; Pulse Ox 100% ; Pain 5/10; db 11:54 Body Mass Index 41.25 (149.69 kg, 190.50 cm) ap3 Omar Coma Score: 12:27 Eye Response: spontaneous(4). Verbal Response: oriented(5). Motor Response: obeys db commands(6). Total: 15. MDM: 12:11 Patient medically screened. jr11 12:21 Differential diagnosis: arthritis, cervical strain, Degenerative Disc Disease. Data jr11 reviewed: vital signs, nurses notes. ED course: I went to take history from patient, asked if he has any trauma, started yelling at me that he didn't mention trauma. I told him I needed to ask multiple questions to sort out what was going on. Pt irritated, I stepped out to de-escalate situation. . 12:47 ED course: Pt states that he is here for symptomatic relief, does not want a blood jr11 patch at this time. We will send labs, doubt spinal hematoma, no neuro concerns, local pain radiating up does not make sense for that. . 15:22 ED course: Pt wants to leave, ER warnings given . jr11 05/14 12:42 Order name: CBC with Diff 11 05/14 12:42 Order name: CMP jr11 05/14 12:46 Order name: CRP jr11 05/14 14:23 Order name: CBC with Automated Diff; Complete Time: 14:53 EDMS 05/14 14:29 Order name: Comprehensive Metabolic Panel; Complete Time: 14:53 EDMS 05/14 14:36 Order name: C-Reactive Protein; Complete Time: 14:53 EDMS 05/14 12:46 Order name: CT Head Brain wo Cont 11 05/14 13:12 Order name: CT; Complete Time: 13:52 EDMS 05/14 12:42 Order name: IV Saline Lock; Complete Time: 14:11 jr11 05/14 12:42 Order name: Labs collected and sent; Complete Time: 13:33 jr11 Administered Medications: 12:53 Drug: Tylenol 1000 mg Route: PO; db 15:45 Follow up: Response: No adverse reaction db 14:10 Drug: Dexamethasone 10 mg Route: IVP; Site: left antecubital; db 15:44 Follow up: Response: No adverse reaction db 14:11 Drug: NS 0.9% 1000 ml Route: IV; Rate: 1 bolus; Site: left antecubital; db 15:46 Follow up: Response: No adverse reaction db 16:15 Follow up: Response: No adverse reaction; IV Status: Completed infusion; IV Intake: db 1000ml 14:11 Drug: Reglan (metoCLOPramide) 10 mg Route: IVP; Site: left antecubital; db 15:45 Follow up: Response: No adverse reaction db 14:11 Drug: Ketorolac 15 mg Route: IVP; Site: left antecubital; db 15:45 Follow up: Response: No adverse reaction db 15:43 Drug: Dilaudid (HYDROmorphone) 0.5 mg Route: IVP; Site: left antecubital; db 16:28 Follow up: Response: No adverse reaction db 15:43 Drug: Lidoderm Patch 5 % (700 mg/patch) 1 patches {Note: upper middle back.} Route: db Topical; Site: affected area; 16:28 Follow up: Response: No adverse reaction db Disposition Summary: 05/14/22 15:23 Discharge Ordered Location: Home jr Condition: Stable jr11 Diagnosis - Low back pain jr11 Discharge Instructions: - Discharge Summary Sheet jr11 - Acute Back Pain, Adult jr11 Forms: - Medication Reconciliation Form jr11 - Thank You Letter jr11 - Antibiotic Education jr11 - Prescription Opioid Use jr11 Prescriptions: - Lidoderm 5 % Topical adhesive patch,medicated - apply 1 patch by TRANSDERMAL route once daily; 12 patch; Refills: 0, Product jr11 Selection Permitted Signatures: Dispatcher [employer] Lisa Ramey RN RN ap3 Akira De León MD MD jr11 Jaky Lara RN RN db
[2022-05-14] MEDS ORDERED: HYDROMORPHONE HCL 0.5 MG/0.5 ML INJ ONE (15:31)
[2022-05-14] MEDS ORDERED: LIDOCAINE 4% PATCH ONE (15:31)
[2022-05-14 17:34] VITALS: TEMP 98.4; O2SAT 100
[2022-05-14 17:38] VITALS: BP 158/89
== END 2022-05-14 16:26 | disposition home or self-care (01) ==
LOC: ER 11:44
DX: M54.50 Low back pain, unspecified (principal); I10 Essential (primary) hypertension; G43.909 Migraine, unspecified, not intractable, without status migrainosus; F17.290 Nicotine dependence, other tobacco product, uncomplicated
CPT/HCPCS: 96361; 85025; 36415; 80053; 86140; 70450; 96375; 96374; 99284; J2765; J2001; J1100; J1170; J7030

== ENCOUNTER 2022-09-07 19:09 | Emergency (ER) | payer OTHER ==
--- OUTSIDE RECORDS SUMMARY | 2022-09-07 19:19 | XMS REPORT | Continuity of Care Document ---
:1980 Author Organization [facility] t Address [address] [place] [address] Care Team Providers Name Role Phone Geovanna Huerta DO Primary Care Physician John Vazquez Attending Clinician Unavailable GERONIMO BALDERAS Attending Clinician Unavailable NOAH OSORIO Attending Clinician Unavailable JUNIOR KUMAR Attending Clinician Unavailable MANASA NOGUEIRA Attending Clinician Unavailable ANU TUCKER Attending Clinician Unavailable NOAH OSORIO Attending Clinician Unavailable SNOIA ROBERTS Attending Clinician Unavailable Marcella CLEMENTE, Rae Attending Clinician Unavailable Layne Sánchez MA Attending Clinician Unavailable Geronimo Balderas MD Attending Clinician Dorothea Delgadillo MA Attending Clinician Unavailable Amelia Cameron MA Attending Clinician Unavailable Brii Howard MA Attending Clinician Unavailable Doctor Unassigned, [place] Attending Clinician Unavailable 1, [employer] Attending Clinician Unavailable FABY MULLER Attending Clinician Unavailable LAURECNE JIMENEZ Attending Clinician Unavailable Blaire PADRON Attending Clinician Unavailable MICHAEL LICONA M.D. Attending Clinician Unavailable ROBERT YOUSIF M.D. Attending Clinician Unavailable BRANT CEJA NP Attending Clinician Unavailable ANNETTE MUNOZ M.D. Attending Clinician Unavailable LORENZA SCHMITT M.D. Attending Clinician Unavailable FER ROTH NP Attending Clinician Unavailable GEOVANNA HUERTA D.O. Attending Clinician Unavailable NOAH OSORIO Admitting Clinician Unavailable MANASA NOGUEIRA Admitting Clinician Unavailable Blaire PADRON Admitting Clinician Unavailable Payers Payer Name Policy Policy Number Effective Expiration Source Type Date Date [facility] [place] [id number] 2018 00:00:00 [facility] [id number] 2018 Common S pirit CHOICE 00:00:00 - [facility] [id number] 2018 Common S pirit CHOICE 00:00:00 - [facility] [id number] 2018 Common S pirit CHOICE 00:00:00 - [facility] [id number] 2018 Common S pirit CHOICE 00:00:00 - [facility] [id number] 2019 Formerly [facility] - MANAGED 00:00:00 [facility] MEDICAIDCOMMUNITY [facility] CHOICE [id number]/2019-PresentP[address], [place] [address]MedicaidFormerly [facility] [id number] 2018 Common S pirit CHOICE 00:00:00 - [facility] [id number] 2018 Common S pirit CHOICE 00:00:00 - [facility] [id number] 2018 Common S pirit CHOICE 00:00:00 - [facility] Problems Condition Condition Condition Status Onset Resolution Last Treating Co mments Source Name Details Category Date Date Treatment Clinician Date BMI BMI Disease Active 2021-08 [place] 40.0-44.9, 40.0-44.9, 0-07 He alth adult adult 00:00: 00 UNSPECIFIE UNSPECIFI Diagnosis Active 2021-10-26 Memoria D ED 3-15 18:20:00 l ABDOMINAL ABDOMINAL 00:00: Herm faina PAIN PAIN 00 Active 10/24/2021 [facility] DISPLACED DISPLACED Diagnosis Active 2021-10-08 Memoria 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 10-08 19:39:00 l Active 00:00: [place] 10/08/2021 00 [facility] 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 Diagnosis Active 2021-10-26 Memoria MALF MALF 10-08 18:20:00 l Active 00:00: [place] 10/08/2021 00 [facility] G96.00 G96.00 Diagnosis Active 2021-10-26 Me moria Active 09-28 18:20:00 l 09/28/2021 00:00: Sadi n [address] MD LOJA Diagnosis Active 2021-05-10 Mem oria REFERRAL/ REFERRAL/ 05-10 20:33:00 l FLUIDS FLUIDS 00:00: [place] LEAKING LEAKING 00 FROM EAR FROM EAR Active 05/10/2021 [facility] CSF CSF Disease Active [facility] otorrhea otorrhea 05-09 Health 00:00: 00 Syncope Syncope Disease Active 2017-08 [facility] 00 l Lesion of Lesion of Problem 2019-01-26 Memoria ulnar ulnar 15:19:24 l nerve, nerve, [place] right right upper limb upper limb 01/26/2019 [facility] Unspecifie Unspecifi Problem 2019-01-26 Memoria d ed 15:19:24 l osteoarthr osteoarthr Harpreet veliz itis, itis, unspecifie unspecifie d site d site 01/26/2019 [facility] Sleep Sleep Problem 2019-01-26 Memor ia apnea, apnea, 15:19:24 l unspecifie unspecifie He anirudhann d d 01/26/2019 [facility] Unspecifie Unspecifi Problem 2019-01-26 Memoria d asthma, ed asthma, 15:19:24 l uncomplica uncomplica He jose alfredo holley leydi 01/26/2019 [facility] Anxiety Anxiety Problem 2019-01-26 [place] moribernice disorder, disorder, 15:19:24 l unspecifie unspecifie He rmfaina d d 01/26/2019 [facility] Gastro-eso Gastro-es Problem 2019-01-26 Memoria phageal ophageal 15:19:24 l reflux reflux [place] disease disease without without esophagiti esophagiti s s 01/26/2019 [facility] Essential Problem 2019-01-26 Me moria (primary) Essential 15:19:24 l hypertensi (primary) Her jones on hypertensi on 01/26/2019 [facility] Personal Personal Problem 2019-01-26 Memoria history of history of 15:19:24 l nicotine nicotine Sadi n dependence dependence 9 [facility] Allergy Allergy Problem 2019-01-26 [place] mckenna status to status to 15:19:24 l analgesic analgesic Herm faina agent agent status status 01/26/2019 [facility] 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-01-26 Memoria (current) (current) 15:19:24 l use of use of [place] non-steroi non-steroi siddharth siddharth anti-infla anti-infla mmatories mmatories (NSAID) (NSAID) 01/26/2019 [facility] Dependence Dependenc Problem 2019-01-26 Memoria on other e on other 15:19:24 l enabling enabling Sadi n machines machines and and devices devices 01/26/2019 [facility] Arthrodesi Arthrodes Problem 2019-01-26 Memoria s status is status 15:19:24 l 01/26/2019 Sadi n [facility] Cerebrospi Cerebrosp Problem Active 2021-10-27 Memoria nal fluid inal fluid 23:21:02 l leak leak Davidson (disorder) (disorder) Active Problem 10/27/2021 [facility], RHODA Cedeño, OPID [place] Chest pain Chest Problem Active 2021-10-27 M emoria (finding) pain 23:21:02 l (finding) [place] Active Problem 10/27/2021 [facility] RHODA Cedeño, RHODA Burr,M H [facility] Morbid Morbid Problem Active 2021-10-27 David katarzyna obesity obesity 23:21:02 l (disorder) (disorder) He rmann Active Problem 10/27/2021 [facility], RHODA Cedeño, RHODA Burr Rhabdomyol Rhabdomyo Problem Active 2021-10-27 Memoria ysis lysis 23:21:02 l (disorder) (disorder) He rmann Active Problem 10/27/2021 [facility], RHODA Cedeño, RHODA Burr,M H [facility] Smoker Smoker Problem Active 2021-10-27 David katarzyna (finding) (finding) 23:21:02 l Active [place] Problem 10/27/2021 [facility], RHODA Cedeño, RHODA Burr MECH COMPL MECH Diagnosis Active 2021-10-26 Memoria OF COMPL OF 18:20:00 l VENTRICULA VENTRICULA He jose alfredo R R INTRACRANI INTRACRANI AL S AL S Active [facility] R10.30 - R10.30 - Diagnosis Active 2021-10-26 Memoria LOWER LOWER 18:20:00 l ABDOMINAL ABDOMINAL Herm faina PAIN, PAIN, UNSPECIF UNSPECIF Active RHODA Cedeño R10.84 - R10.84 - Diagnosis Active 2022-01-10 Memoria GENERALIZE GENERALIZE 14:35:00 l D Tricia Cedeño ABDOMINAL ABDOMINAL PAIN PAIN Active RHODA Brur No known No known Disease Unive rs active active ity of problems problems [facility] 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 [id number] Mild Problem Common intermitte Spirit nt asthma - CHI with allergic [facility] rhinitis, [facility] unspecifie Center d whether complicate d [id number] Depression Problem Co mmon with Spirit anxiety - CHI [facility] [id number] Migraine Problem Comm on without Spirit aura and - CHI without [facility] migrainosu Medica l s, not Center intractabl e [id number] Attention Problem Comm on deficit Spirit hyperactiv - CHI ity [facility] (ADHD), Medical combined Center type [id number] [place] [address] osteoarthr Spirit itis of - CHI right knee [facility] [id number] Pain in Problem Common right knee Spirit [facility] [id number] Left Problem Common maxillary Spirit sinusitis - [facility] [id number] Hypertensi Problem Com mon on, Spirit unspecifie - CHI d type [facility] [id number] GERD Problem Common without Spirit esophagiti - CHI s [facility] [id number] Tobacco Problem Commo n use Spirit disorder - [facility] [id number] Other Problem Common chronic Spirit pain - [facility] [id number] Mixed Problem Common hyperlipid Spirit emia - [facility] [id number] Decreased Problem Com mon hearing of Spirit left ear - [facility] [id number] Loss of Problem Common taste Spirit - [facility] Sprain of Sprain of Problem Resolve 2021-10-27 2021-10-27 Memoria ligament ligament d - 23:21:02 23:21:02 l of finger of finger 00:00: Herm faina (disorder) (disorder) 00 Resolved 12/23/2011 Problem 10/27/2021 [facility], RHODA Cedeño, Thomas Renteria [facility] History of Past Illness Condition Condition Condition Status Onset Resolution Last Treating Co mments Source Name Details Category Date Date Treatment Clinician Date Headache, Headache, Problem 2021-05-13 2021-05-13 Memoria unspecifie unspecifie 05-10 21:21:08 21:21:08 l d d 17:00: [place] 05/10/2021 00 [facility] Carpal Carpal Problem 2017-2019-01-26 2019-01-26 Memoria tunnel tunnel 2- 15:19:24 15:19:24 l syndrome, syndrome, 04:59: Anya eisenberg right right 41 upper limb upper limb 07/17/2018 01/26/2019 [facility] Obstructiv Obstructi Problem 2017-082019-01-11 2019-01-11 Mike e sleep ve sleep 08-28 11:08:48 11:08:48 l apnea apnea 05:23: [place] (adult) (adult) 17 (pediatric (pediatric ) ) 06/28/2018 01/11/2019 [facility] Unspecifie Unspecifi Problem 2017-082018-12-03 2018-12-03 Memmarlene d ed 0-11 14:53:30 14:53:30 l mononeurop mononeurop 04:28: Harpreet veliz athy of athy of 42 right right upper limb upper limb 05/22/2018 12/03/2018 [facility] Pain in Pain in Problem 2017-082018-12-03 2018-12-03 Mike arm, arm, 0-05 14:53:30 14:53:30 l unspecifie unspecifie 05:00: He rmann d d 00 05/16/2018 12/03/2018 [facility] Allergies, Adverse Reactions, Alerts Allergy Allergy Status Severity Reaction(s) Onset Inactive Treating Comm ents Source Name Type Date Date Clinician NO KNOWN Drug Active Univers ALLERGIE Class ity of [facility] Acetamin drug Active Headache [place] ophen allergy [...] Date Stop Date Quantity Comments Source History of Current Smoker Common Spi rit - Tobacco Use [facility] Alcohol Frequency History [facility] Alcohol Std Drinks History [facility] Alcohol Binge Exposure to 2022-05-06 2022-05-16 Not sure [facility] SARS-CoV-2 00:00:00 14:58:00 (event) Alcohol Comment 2021-10-18 2021-10-18 [facility]ally [facility] 00:00:00 00:00:00 Tobacco use and 2021-10-18 2021-10-18 Smokeless tobacco [facility] exposure 00:00:00 00:00:00 non-user Social History 2018-07-08 2018-07-08 [facility] 18:40:37 18:40:37 Alcohol intake 2018-05-25 2018-05-25 Current non-drinker M ethodist 00:00:00 00:00:00 of [facility] (finding) Sex Assigned At [birth year] Confucianist 00:00:00 00:00:00 Hospital Smoking Status Start Date Stop Date Source Unknown if ever smoked [facility] Current Smoker 2022-06-22 00:00:00 Common Spiri t - [facility] nter Ex-smoker 2021-10-18 00:00:00 2021-10-18 00:00:00 [facility] Medications Ordered Filled Start Stop Current Ordering Indication Dosage Frequency Signature Comments Components Source Medication Medication Date Date Medication? Clinician (SIG) Name Name Lisinopril Lisinopril 2021-08 No 1{table QD Lisinopril 40 MG 40 MG 08-22 t} 40 MG 00:00: 00 Ondansetron Ondansetron 2021-08 No 1{table Ondansetro 4 MG 4 MG 08-22 t_on_th n 4 MG 00:00: e_tongu 00 e_and_a llow_to _dissol ve} Pantoprazol Pantoprazol 2021-08 No 1{table QD Pantoprazo e Sodium 40 e Sodium 40 11 t} le Sodium MG MG 00:00: 40 MG 00 Lisinopril Lisinopril 2021-08 No 1{table QD Lisinopril 40 MG 40 MG 11 t} 40 MG 00:00: 00 Ondansetron Ondansetron 2021-08 No 1{table Ondansetro 4 MG 4 MG -11 t_on_th n 4 MG 00:00: e_tongu 00 e_and_a llow_to _dissol ve} Pantoprazol Pantoprazol 2021-08 No 1{table QD Pantoprazo e Sodium 40 e Sodium 40 08-22 t} le Sodium MG MG 00:00: 40 MG 00 Lisinopril Lisinopril 2021-08 No 1{table QD Lisinopril 40 MG 40 MG 11 t} 40 MG 00:00: 00 Ondansetron Ondansetron 2021-08 No 1{table Ondansetro 4 MG 4 MG -11 t_on_th n 4 MG 00:00: e_tongu 00 e_and_a llow_to _dissol ve} Pantoprazol Pantoprazol 2021-08 No 1{table QD Pantoprazo e Sodium 40 e Sodium 40 11 t} le Sodium MG MG 00:00: 40 MG 00 Lisinopril Lisinopril 2021-08 No 1{table QD Lisinopril 40 MG 40 MG 11 t} 40 MG 00:00: 00 Pantoprazol Pantoprazol 2021-08 No 1{table QD Pantoprazo e Sodium 40 e Sodium 40 11 t} le Sodium MG MG 00:00: 40 MG 00 Ondansetron Ondansetron 2021-08 No 1{table Ondansetro 4 MG 4 MG -11 t_on_th n 4 MG 00:00: e_tongu 00 e_and_a llow_to _dissol ve} No known 2021-08 No No known UT medications 0-05 medication He alth 15:32: s 45 amoxicillin 2021-08 Yes 1{tbl} Q12H Take 1 UT -clavulanat 0-03 tablet by Hea lth e 00:00: mouth (Augmentin) 00 every 12 875-125 MG (twelve) tablet hours. FOR 7 DAYS topiramate 2021-08 Yes TAKE 1 UT (Topamax) 0-03 TABLET BY Healt h 25 MG 00:00: MOUTH tablet 00 EVERY 12 HOURS FOR 10 DAYS ofloxacin Yes INSTILL 4 UT (Floxin) 6-15 DROPS INTO Healt h 0.3 % otic 00:00: LEFT EAR solution 00 TWICE A DAY No known No No known UT medications 3-11 medication He alth 13:38: s 44 Cefazolin No Notes: Memori a 3 (Same As: l 04:00: [place] Kovacs Kefzol) MEDICATION WASTE Product Size: 1000 mg Product Wasted: ___ mg Oxycodone No 10 mg, Memori a 10-09 Route: PO, l 21:36: Drug form: TAB, ONCE, Dosing Weight 156, kg, PRN Pain Score 7-10, Start date: 10/09/21 15:36:00 [employer]IA [employer] Ofirmev No or = 50 Memori a 2-28 kg, Start l 21:19: date: 10/09/21 15:19:00 [employer] sugammadex No Route: IV, M emoria (ANES) 10-09 Drug form: l 21:05: [place] DAVE ONCE, Stop date: 10/09/21 15:05:00 [employer] Hydromorpho No Notes: David katarzyna ne 10-09 Same as l 21:02: Dilaudid Flumazenil No Notes: Memor ia 10-09 (Same as: l 21:02: Romazicon) Naloxone No Notes: Memoria 10-09 Same as l 21:02: Narcan Ondansetron No 4 mg, Memor ia 10-09 Route: l 21:02: IVP, ONCE, Dosing Weight 156, kg, PRN Nausea & Vomiting, Start date: 10/09/21 15:02:00 MEDIA CONSULT[employer] ondansetron No Route: IV, Memoria (ANES) 10-09 Drug form: l 21:00: INJ, ONCE, Stop date: 10/09/21 15:00:00 MEDIA CONSULT[employer] ceFAZolin No Route: IV, Me moria (ANES) 10-09 Drug form: l 20:38: INJ, ONCE, Stop date: 10/09/21 14:38:00 MEDIA CONS[employer] propofol No Route: IV, Mem oria (ANES) 10-09 Drug form: l 20:33: INJ, ONCE, Stop date: 10/09/21 14:33:00 MEDIA CONSULTANT [employer] rocuronium No Route: IV, M emoria (ANES) 10-09 Drug form: l 20:33: INJ, ONCE, Stop date: 10/09/21 14:33:00 MEDIA CONSULTANT [employer] SAL[employer] fentaNYL No Route: IV, Mem oria (ANES) 10-09 Drug form: l 20:33: INJ, ONCE, Stop date: 10/09/21 14:33:00 MEDIA CONSULTANT [employer] dexamethaso No Route: IV, Memoria ne (ANES) 10-09 Drug form: l 20:33: INJ, ONCE, Stop date: 10/09/21 14:33:00 [employer] CONS[employer] lidocaine No Route: IV, Me moria (ANES) 10-09 Drug form: l 20:28: INJ, ONCE, Stop date: 10/09/21 14:28:00 MEDIA CONSULTANT [employer] Isolyte S No Route: IV, Me moria PH 7.4 10-09 Total l (ANES) 1000 19:29: Volume: Her jones mL 00 1,000, Start date: 10/09/21 13:29:00 MEDIA CONSULT[employer], Stop date: 10/09/21 14:29:00 MEDIA CONS[employer] Epinephrine Yes Notes: David katarzyna 0.01 MG/ML 10-09 (Same as: l / Lidocaine 18:26: Xylocaine H ermann Hydrochlori 00 w/Epinephr de 10 MG/ML ine) Injectable Solution Lidocaine No 1 patch, David katarzyna 0.05 MG/MG 10-09 Route: l Transdermal 15:00: TOP, Sadi n Patch 00 Daily, Drug form: FILM, Start date: 10/09/21 9:00:00 MED[employer], Duration: 30 day, Stop date: 11/07/21 9:00:00 CDT, 0 Levetiracet No 500 mg, 1 M emoria am 500 MG 10-09 tab, l Oral Tablet 15:00: Route: PO, [place] [Keppra] 00 Drug form: TAB, Q12H, Dosing Weight 156, kg, Start date: 10/09/21 9:00:00 MED[employer], Duration: 30 day, Stop date: 11/07/21 21:00:00 CDT, 0 Hydromorpho No Notes: David katarzyna ne - Same as l 13:57: Dilaudid [place] 00 Reglan No Notes: Memoria 2-28 (Same as: l 08:15: Reglan) [place] 00 Dilaudid No Notes: Memoria 2-28 Same as l 08:15: Dilaudid Sodium No 1,000 mL, Memori a Chloride - Rate: 75 l 0.9% IV 06:49: ml/hr, Thornton 1,000 mL 00 Infuse over: 13.3 hr, Route: IV, Dosing Weight 156 kg, Total Volume: 1,000, Start date: 10/09/21 0:49:00 MED[employer], Duration: 30 day, Stop date: 11/08/21 0:48:00 CDT, BSA: 2.9 m2, 0 Docusate No Notes: Memoria 2-28 (Same as: l 03:00: Colace) [place] (Do Not Crush) sennosides, No Notes: David katarzyna INTERMEDIATE - (Same as: l 03:00: Senokot) [place] Saline No Notes: Memoria Flush 0.9% 2-28 (Same as: l 03:00: BD [place] Posiflush) Sodium No 1,000 mL, Memori a Chloride 2-28 Rate: 50 l 0.9% IV 01:57: ml/hr, Thornton 1,000 mL 00 Infuse over: 20 hr, Route: IV, Dosing Weight 156 kg, Total Volume: 1,000, Start date: 10/08/21 19:57:00 [employer], Duration: 30 day, Stop date: 11/07/21 19:56:00 CDT, BSA: 2.9 m2, 0 Acetaminoph No Notes: Do M emoria en 2-28 not exceed l 01:57: 4 gm/day. Davidson 00 (Same as: Tylenol) Acetaminoph No Notes: David katarzyna en 325 MG / 2-28 (Same as: l Hydrocodone 01:57: [place] Kelly nn Bitartrate 00 325/5) Do 5 MG Oral not exceed Tablet 4gm/day of acetaminop hen. Morphine No Notes: Memoria 2-28 (Same l 01:57: as:MORPhin [place] 00 e Sulfate) Bisacodyl No Notes: Memori a 2-28 (Same As: l 01:57: Dulcolax, Thornton Bisco-Lax) Ondansetron No Notes: David katarzyna 2-28 (Same as: l 01:57: Zofran) MEDICATION WASTE Product Size: 4 mg Product Wasted: ___ mg Hydralazine No Notes: David katarzyna 2-28 (Same as: l 01:57: Apresoline Thornton 00 ) Push over 5 minutes Labetalol No 10 mg, 2 David katarzyna 2-28 mL, Route: l 01:57: IVP, Drug form: INJ, Q15Min, Dosing Weight 156, kg, PRN Hypertensi on, Start date: 10/08/21 19:57:00 [employer], Duration: 3 doses or times, Stop date: Limited # of times, 0 Saline No Notes: Memoria Flush 0.9% - (Same as: l 01:57: BD [place] 00 Posiflush) Insulin No Notes: Memoria regular 2-28 (Same as: l 01:57: Humulin R) Davidson 00 Roll in palms of hands gently; Do not shake vigorously . WASTE: F/P - Black; E - Municipal Trash Bin Stable for 31 days at room temperatur e Expires in days from ____Date Dilaudid No Notes: Memoria 2-28 Same as l 01:30: Dilaudid [place] Levetiracet Yes 500 mg = 1 Memoria am 500 MG 2-24 tab, PO, l Oral Tablet 13:52: Q12H, # 60 [place] [Keppra] 00 tab, 0 Refill(s), Pharmacy: [id number], 190.5, cm, 10/03/21 6:40:00 [employer], Height, 159.3, kg, 10/03/21 6:40:00 [employer], Weight docusate Yes 2 cap, PO, Mem oria sodium 50 2-24 QPM, X 10 l MG / 13:52: day, # 20 Davidson sennosides, 00 cap, 0 INTERMEDIATE 8.6 MG Refill(s), Oral Pharmacy: [id number], 190.5, cm, 10/03/21 6:40:00 [employer], Height, 159.3, kg, 10/03/21 6:40:00 [employer], Weight magnesium Yes 8.725 gm = Me moria citrate 2-24 150 ml, l 58.2 MG/ML 13:52: PO, ONCE, He rmann Oral 00 if no Solution bowel movement in couple days, # 300 ml, 0 Refill(s), Pharmacy: [email or web address] #[id number], 190.5, cm, 10/03/21 6:40:00 [employer], Height, 159.3, kg, 10/03/21 6:40:00 [employer], Weight POLYETHYLEN Yes 17 gm, PO, Memoria E GLYCOL 2-24 Daily, X l 3350 142 13:52: 10 day, # Herm faina MG/ML Oral 00 170 gm, 0 Solution Refill(s), [Miralax] Pharmacy: [email or web address] #[id number], 190.5, cm, 10/03/21 6:40:00 [employer], Height, 159.3, kg, 10/03/21 6:40:00 [employer], Weight Ondansetron No 4 mg = 1 Me moria 4 MG Oral 2-24 tab, PO, l Tablet 13:52: Q8H, PRN [Zofran] Nausea/vom iting, X 3 day, # 10 tab, 0 Refill(s), Pharmacy: [id number], 190.5, cm, 10/03/21 6:40:00 [employer], Height, 159.3, kg, 10/03/21 6:40:00 [employer], Weight Acetaminoph Yes 1 tab, PO, Memoria en 325 MG / 2-24 Q4-6H, PRN l Hydrocodone 13:52: Pain Score [place] Bitartrate 00 4-6, X 5 5 MG Oral day, # 30 Tablet tab, 0 [[place] Refill(s), 5/325] other heparin No Notes: Memoria 5000 2-23 porcine l units/mL 22:00: heparin Sadi n injectable 00 solution Saline No Notes: Memoria Flush 0.9% 2-23 Same as: l 03:00: BD Posiflush Sterile Levetiracet No Notes: David katarzyna am 500 MG 2-23 (Same l Oral Tablet 03:00: as:Keppra) [Keppra] 00 Cefazolin No Notes: Memori a 2-23 (Same as l 02:00: Ancef) Docusate No Notes: Memoria 2-22 (Same as: l 23:00: Colace) (Do Not Crush) sennosides, No Notes: David katarzyna INTERMEDIATE 2-22 (Same as: l 23:00: Senokot) Famotidine No Notes: Memor ia 20 MG Oral -22 (Same as: l Tablet 23:00: Pepcid) Hydromorpho No 0.5 mg, Mem oria ne 10-03 Route: l 20:05: IVP, ONCE, Dosing Weight 159.3, kg, Priority: STAT, Start date: 10/03/21 14:05:00 [employer], Stop date: 10/03/21 14:05:00 [employer] metoprolol No Route: IV, M emoria (ANES) 10-03 Drug form: l 19:20: INJ, ONCE, Stop date: 10/03/21 13:20:00 [employer] Oxycodone No 10 mg, Memori a Hydrochlori 10-03 Route: PO, l de 5 MG 19:16: Drug form: Herm faina Oral Tablet 00 TAB, Q4H, Dosing Weight 159.3, kg, PRN Pain Score 7-10, Start date: 10/03/21 13:16:00 [employer], Duration: 30 day, Stop date: 11/02/21 13:15:00 CDT sugammadex No Route: IV, M emoria (ANES) 10-03 Drug form: l 18:37: SOLN, 00 ONCE, Stop date: 10/03/21 12:37:00 [employer] ondansetron No Route: IV, Memoria (ANES) 10-03 Drug form: l 18:22: INJ, ONCE, Stop date: 10/03/21 12:22:00 [employer] Dexamethaso No Notes: David katarzyna ne - Give with l 18:00: food. (Same As: Decadron) Hydralazine No Notes: David katarzyna - (Same as: l 17:50: Apresoline ) Push over 5 minutes Ondansetron No Notes: David katarzyna 2-22 (Same as: l 17:50: Zofran) MEDICATION WASTE Product Size: 4 mg Product Wasted: ___ mg Acetaminoph No Notes: Do M emoria en 325 MG / 10-03 not exceed l Hydrocodone 17:50: 4gm/day of [place] Bitartrate 00 acetaminop 10 MG Oral hen. (Same Tablet as: [place] [[place] 325/10) [id number]] Dilaudid No Notes: Memoria 2-22 Same as l 17:50: Dilaudid Benadryl No Notes: Memoria 2-22 (Same as: l 17:50: Benadryl) [place] phenol No Notes: Memoria 2-22 Chlorasept l 17:50: ic [place] (Same as: Chlorasept ic, Sore Throat [place]) WASTE: F/P - Black; E - Municipal Trash Bin Bisacodyl No Notes: Memori a 2-22 (Same As: l 17:50: Dulcolax, Bisco-Lax) Robaxin No Notes: Memoria 2-22 (Same l 17:50: as:Robaxin ) Melatonin 3 No Notes: David katarzyna MG Extended 2-22 (Same as: l Release 17:50: Melatonin) Herm faina Tablet Tylenol No Notes: Do Memor ia 2-22 not exceed l 17:50: 4 gm/day. Thornton (Same as: Tylenol) Reglan No Notes: Memoria 2-22 (Same as: l 17:50: Reglan) Phenergan No Notes: Do Mem oria 2-22 not give l 17:50: IV push. (Same as: Phenergan) Saline No Notes: Memoria Flush 0.9% 2-22 Same as: l 17:50: BD Posiflush Sterile Sodium No 1,000 mL, Memori a Chloride 2-22 Rate: 100 l 0.9% IV 17:50: ml/hr, Thornton 1,000 mL 00 Infuse over: 10 hr, Route: IV, Dosing Weight 159.3 kg, Total Volume: 1,000, Start date: 10/03/21 11:50:00 [employer], Duration: 30 day, Stop date: 11/02/21 11:49:00 CDT, BSA: 2.93 m2, 0 Labetalol No 10 mg, 2 David katarzyna 2-22 mL, Route: l 17:50: IVP, Drug form: INJ, Q15Min, Dosing Weight 159.3, kg, PRN Hypertensi on, Start date: 10/03/21 11:50:00 [employer], Duration: 3 doses or times, Stop date: 10/04/21 0:00:00 [employer], 0 lidocaine No Route: IV, Me moria (ANES) 2- Drug form: l 16:45: INJ, ONCE, Stop date: 10/03/21 10:45:00 [employer] rocuronium No Route: IV, M emoria (ANES) - Drug form: l 16:45: INJ, ONCE, Stop date: 10/03/21 10:45:00 [employer] dexamethaso No Route: IV, Memoria ne (ANES) - Drug form: l 16:45: INJ, ONCE, Stop date: 10/03/21 10:45:00 [employer] phenylephri No Route: IV, Memoria ne (ANES) 10-03 Drug form: l 16:40: INJ, ONCE, Stop date: 10/03/21 10:40:00 [employer] Hydralazine No Notes: David katarzyna 2-22 (Same as: l 16:37: Apresoline ) Push over 5 minutes Labetalol No 10 mg, 2 David katarzyna 2-22 mL, Route: l 16:37: IVP, Drug form: INJ, Q5Min, Dosing Weight 159.3, kg, PRN Elevated BP, Start date: 10/03/21 10:37:00 [employer], Duration: 5 doses or times, Stop date: 10/04/21 0:00:00 [employer], 0 Oxycodone No Notes: Memori a Hydrochlori - (Same as: l de 5 MG 16:37: Roxicodone Herm faina Oral Tablet ) Hydromorpho No Notes: David katarzyna ne 2-22 Same as l 16:37: Dilaudid Flumazenil No Notes: Memor ia - (Same as: l 16:37: Romazicon) Naloxone No Notes: Memoria 2-22 Same as l 16:37: Narcan Ondansetron No Notes: David katarzyna 10-03 (Same as: l 16:37: Zofran) MEDICATION WASTE Product Size: 4 mg Product Wasted: ___ mg propofol No Route: IV, Mem oria (ANES) 10-03 Drug form: l 16:35: INJ, ONCE, Stop date: 10/03/21 10:35:00 [employer] fentaNYL No Route: IV, Mem oria (ANES) 10-03 Drug form: l 16:35: INJ, ONCE, Stop date: 10/03/21 10:35:00 [employer] midazolam No Route: IV, Me moria (ANES) 10-03 Drug form: l 16:24: SOLN, ONCE, Stop date: 10/03/21 10:24:00 [employer] ceFAZolin No Route: IV, Me moria (ANES) 10-03 Drug form: l 16:24: INJ, ONCE, Stop date: 10/03/21 10:24:00 [employer] levETIRAcet No Route: IV, Memoria am (ANES) 10-03 Drug form: l 100 mg 16:20: INJ, Start Kelly date: 10/03/21 10:20:00 [employer], Stop date: 10/03/21 11:20:00 [employer] propofol No Route: IV, Mem oria (ANES) 10 10-03 Drug form: l mg 15:26: INJ, Start date: 10/03/21 9:26:00 [employer], Stop date: 10/03/21 10:26:00 [employer] Isolyte S No Route: IV, Me moria PH 7.4 10-03 Total l (ANES) 1000 14:26: Volume: Her jones mL 00 1,000, Start date: 10/03/21 8:26:00 [employer], Stop date: 10/03/21 9:26:00 [employer] Isolyte S No Notes: Memori a PH 7.4 - (Same as: l 1,000 mL 12:35: Isolyte S Herm faina 00 PH7.4, Normosol-R PH 7.4, Plasma-Lyt e A ) Acetaminoph No 1,000 mg, M emoria en 10-03 Route: PO, l 12:35: Drug form: Davidson 00 TAB, PRE OP, Dosing Weight 160.3, kg, Priority: NOW, Start date: 10/03/21 6:35:00 [employer], Duration: 1 doses or times NS + KCL No Notes: Memoria 20mEq/L 10-03 PREMIX IV l 1000ml 12:00: - Do Not Davidson (Premix) 00 Alter 1,000 mL WASTE: F/P - Sink; E - Municipal Trash Bin ceFAZolin + No Notes: David katarzyna sterile 10-03 (Same As: l water 30 mL 12:00: Ancef, Herm faina Kefzol) MEDICATION WASTE Product Size: 1000 mg Product Wasted: ___ mg Acetaminoph No 1 tab, PO, Memoria en 300 MG / 10-02 PRN, PRN l Codeine 18:02: Headache Sadi n Phosphate 00 1-5, 0 30 MG Oral Refill(s) Tablet [Tylenol with Codeine #3] Zofran No PRN, 0 Memoria 10-02 Refill(s) l 18:02: Thornton 00 Sodium No 250 mL, Memoria Chloride 10-02 Rate: To l 0.9% 17:06: prime line Thornton (titrate) 00 and flush 250 mL remaining blood products., Dosing Weight 160.3, kg, Route: IV, Total Volume: 250, Start Date: 10/02/21 11:06:00 [employer], Duration: 1 day, Stop date: 10/03/21 11:05:00 [employer], Replace Every: 24 hr, 0 Acetaminoph No 1 tab, David katarzyna en 325 MG / 05-11 Route: PO, l Hydrocodone 12:17: Drug Form: Thornton Bitartrate 00 TAB, 5 MG Oral Dosing Tablet Weight 139.409, kg, ONCE, STAT, Start date: 05/11/21 7:17:00 CDT, Stop date: 05/11/21 7:17:00 CDT Acetaminoph 2020-0 No 1,000 mg, M havena en 05-11 Route: PO, l 07:46: ONCE, Davidson 00 Dosing Weight 139.409, kg, Start date: 05/11/21 2:46:00 CDT, Stop date: 05/11/21 2:46:00 CDT Iohexol 2020-0 No 100 mL, Memoria 05-11 Route: l 07:23: IVP, Drug Form: SOLN, Dosing Weight 139.409, kg, ONCALL, STAT, Start date: 05/11/21 2:23:00 CDT, Duration: 1 doses or times, Dose = 2.2ml/kg, Max dose = 100ml -- "To be infused by Radiology Staff ONLY" ProAir HFA 2020-0 Yes INHALE 2 UT 108 (90 8-26 [facility]) 00:00: EVERY 6 MCG/ACT 00 HOURS inhaler Acetaminoph Acetaminoph 1-0 No 1{table Acetaminop en-Codeine en-Codeine 8-20 t_as_ne hen-Codein 300-30 MG 300-30 MG 00:00: eded} e 300-30 00 MG Acetaminoph Acetaminoph 2021-0 No 1{table Acetaminop en-Codeine en-Codeine 8-20 t_as_ne hen-Codein 300-30 MG 300-30 MG 00:00: eded} e 300-30 00 MG Acetaminoph Acetaminoph 2021-0 No 1{table Acetaminop en-Codeine en-Codeine 8-20 t_as_ne hen-Codein 300-30 MG 300-30 MG 00:00: eded} e 300-30 00 MG Acetaminoph Acetaminoph 2021-0 No 1{table Acetaminop en-Codeine en-Codeine 8-20 t_as_ne hen-Codein 300-30 MG 300-30 MG 00:00: eded} e 300-30 00 MG Acetaminoph Acetaminoph 2021-0 No 1{table Acetaminop en-Codeine en-Codeine 8-20 t_as_ne hen-Codein 300-30 MG 300-30 MG 00:00: eded} e 300-30 00 MG Acetaminoph Acetaminoph 2021-0 No 1{table Acetaminop en-Codeine en-Codeine 8-20 t_as_ne hen-Codein 300-30 MG 300-30 MG 00:00: eded} e 300-30 00 MG Acetaminoph Acetaminoph 2021-0 No 1{table Acetaminop en-Codeine en-Codeine 8-20 t_as_ne hen-Codein 300-30 MG 300-30 MG 00:00: eded} e 300-30 00 MG Acetaminoph Acetaminoph 2021-0 No 1{table Acetaminop en-Codeine en-Codeine 8-20 t_as_ne hen-Codein 300-30 MG 300-30 MG 00:00: eded} e 300-30 00 MG Acetaminoph Acetaminoph 2021-0 No 1{table Acetaminop en-Codeine en-Codeine 8-20 t_as_ne hen-Codein 300-30 MG 300-30 MG 00:00: eded} e 300-30 00 MG levoFLOXaci Yes TAKE 1 Univ ers n 750 mg 8-02 TABLET BY ity of tablet 00:00: MOUTH [place] 00 EVERY DAY Medical FOR 10 Branch DAYS CIPRODEX 0 Yes INSTILL 4 Univ ers 0.3-0.1 % [...] Medical tablet HOURS FOR Branch 10 DAYS Kenalog Kenalog 2019-08 No 40mg Common (Triamcinol (Triamcinol 0-12 S pirit one) one) 00:00: - [facility] 00 [facility] Kenalog Kenalog 2019-08 No 40mg Common (Triamcinol (Triamcinol 0-12 S pirit one) one) 00:00: - [facility] 00 [facility] Kenalog Kenalog 2019-08 No 40mg Common (Triamcinol (Triamcinol 0-12 S pirit one) one) 00:00: - [facility] 00 [facility] Kenalog Kenalog 2019-08 No 40mg Common (Triamcinol (Triamcinol 0-12 S pirit one) one) 00:00: - [facility] 00 [facility] Kenalog Kenalog 2019- No 40mg Common (Triamcinol (Triamcinol 0-12 S pirit one) one) 00:00: - [facility] Amoxicillin Amoxicillin 2019-08 2020- No 1{table BID Amoxicilli -Pot -Pot 0-12 06-02 t} n-Pot Clavulanate Clavulanate 00:00: 00:00 Clavulanat 875-125 MG 875-125 MG 00 :00 e 875-125 MG Promethazin Promethazin 2019-0 2020- No Norah 1 tablet Common e HCl e HCl 4- 05-03 [place] as needed [facility] 00:00: 00:00 for n/v - [facility] 00 :00 [facility] Bupivicaine Bupivicaine 2019-0 No 4mL Common [place] 4[place]06 [facility] 00:00: - [facility] 00 [facility] Kenalog Kenalog 2020-0 No 40mg Common (Triamcinol (Triamcinol 4-06 S pirit one) one) 00:00: - [facility] 00 [facility] Bupivicaine Bupivicaine 2020-0 No 4mL Common [place] 4[place]06 [facility] 00:00: - [facility] 00 [facility] Kenalog Kenalog 2020-0 No 40mg Common (Triamcinol (Triamcinol 4-06 S pirit one) one) 00:00: - [facility] 00 [facility] Bupivicaine Bupivicaine 2020-0 No 4mL Common [place] 4-06 [facility] 00:00: - [facility] 00 [facility] Kenalog Kenalog 2020-0 No 40mg Common (Triamcinol (Triamcinol 4-06 S pirit one) one) 00:00: - [facility] 00 [facility] Bupivicaine Bupivicaine 2020-0 No 4mL Common [place] 4-06 [facility] 00:00: - [facility] 00 [facility] Kenalog Kenalog 2020-0 No 40mg Common (Triamcinol (Triamcinol 4-06 S pirit one) one) 00:00: - [facility] 00 [facility] Bupivicaine Bupivicaine 2020-0 No 4mL Common [place] 4-06 [facility] 00:00: - [facility] 00 [facility] Kenalog Kenalog 2020-0 No 40mg Common (Triamcinol (Triamcinol 4-06 S pirit one) one) 00:00: - [facility] 00 [facility] ondansetron 2020-0 Yes [id number] 4mg Take 1 Univers (ZOFRAN 3-11 tablet by ity of ODT) 4 mg 00:00: mouth [place] disintegrat 00 every 8 Medic al ing tablet (eight) Branch hours as needed for Nausea and Vomiting (N/V). benzonatate 2020-0 Yes [id number] 200mg Take 1 Univers 200 mg 3-11 capsule by ity of capsule 00:00: mouth 3 [place] 00 (three) Medical times Branch daily as needed for Cough for up to 20 doses. ibuprofen 2020-0 Yes [id number] 600mg Take 1 U nivers 600 mg [...] Pain Score 4-6, Start date: 07/09/18 16:24:00 [employer] Promethazin 2017-08 No Notes: Do M emoria [...] Memori a 09-08 final l 21:26: concentrat Thornton 00 ion 5 mg/mL Acetaminoph 2017-08 No Notes: Max Memoria en 09-08 acetaminop l 21:26: hen 4000 Davidson 00 mg/day (4 gm/day). (Same as: Tylenol [...] PRN Elevated BP, Start date: 07/09/18 15:26:00 [employer], Duration: 5 doses or times, Stop date: [...] 09-08 Drug form: l 21:19: INJ, ONCE, Davidson 00 Stop date: 07/09/18 15:19:00 [employer] ceFAZolin 2017-08 No Route: IV, Me moria (ANES) 09-08 Drug form: l 20:43: INJ, ONCE, Davidson 00 Stop date: 07/09/18 14:43:00 [employer] lidocaine 2017-08 No Route: IV, Me moria (ANES) 09-08 Drug form: l 20:43: INJ, ONCE, Davidson 00 Stop date: 07/09/18 14:43:00 [employer] propofol 2017-08 No Route: IV, Mem oria (ANES) 09-08 Drug form: l 20:43: INJ, ONCE, Stop date: 07/09/18 14:43:00 [employer] fentaNYL 2017-08 No Route: IV, Mem oria (ANES) 09-08 Drug form: l 20:43: INJ, ONCE, Stop date: 07/09/18 14:43:00 [employer] metoclopram 2017-08 No Route: IV, Memoria debbie (ANES) 09-08 Drug form: l 20:38: INJ, ONCE, Stop date: 07/09/18 14:38:00 [employer] famotidine 2017-08 No Route: IV, M emoria (ANES) 09-08 Drug form: l 20:38: INJ, ONCE, Stop date: 07/09/18 14:38:00 [employer] dexamethaso 2017-08 No Route: IV, Memoria ne (ANES) 09-08 Drug form: l 20:38: INJ, ONCE, Davidson 00 Stop date: 07/09/18 14:38:00 [employer] midazolam 2017-08 No Route: IV, Me moria (ANES) 09-08 Drug form: l 20:38: SOLN, Davidson 00 ONCE, Stop date: 07/09/18 14:38:00 [employer] Lactated 2017-08 No Route: IV, Mem oria Ringers 09-08 Total l Injection 19:45: Volume: Kelly nn IV (ANES) 00 1,000, 1000 mL Start date: 07/09/18 13:45:00 [employer], Stop date: 07/09/18 14:45:00 [employer] Famotidine 2017-08 No Notes: Memor ia 40 MG Oral 09-08 (Same as: l Tablet 19:37: Pepcid) Davidson [Pepcid] 00 Celebrex 2017-08 No 200 mg, Memori a 09-08 Route: PO, l 19:00: Drug form: Davidson 00 CAP, ONCALL, Dosing Weight 140.909, kg, Start date: 07/09/18 13:00:00 [employer], Duration: 30 day, Stop date: 08/08/18 12:59:00 [employer] Lidocaine 2017-08 No Notes: Memori a Hydrochlori [...] kg, Priority: STAT, Start date: 07/09/18 12:53:00 [employer], Stop date: 07/09/18 12:53:00 [employer] Tylenol 2017-08 No 1,000 mg, Memor ia 09-08 Route: PO, l 18:20: ONCE, Thornton 00 Dosing Weight 140.909, kg, Priority: STAT, Start date: 07/09/18 12:20:00 [employer], Stop date: 07/09/18 12:20:00 [employer] Insulin 2017-08 No Notes: Memoria Lispro 09-08 (Same as: l 18:18: Humalog ) Davidson 00 Roll in palms of hands gently; Do not shake `vigorousl y. "Single Patient Use Only " WASTE: F/P - Black; E - Municipal Trash Bin Stable for 28 days at room temperatur e. Expires in days from ____Date Calcium 2017-08 No 1,000 mL, Memor ia Chloride 09-08 Rate: 25 l 0.0014 18:18: ml/hr, Thornton MEQ/ML / 00 Infuse Potassium over: 40 Chloride hr, Route: 0.004 IV, Dosing MEQ/ML / Weight Sodium 140.909 Chloride kg, Total 0.103 Volume: MEQ/ML / 1,000, Sodium Start Lactate date: 0.028 07/09/18 MEQ/ML 12:18:00 Injectable [employer], Solution Duration: 30 day, Stop date: 08/08/18 12:17:00 [employer], 2.75, m2 ceFAZolin + 2017-08 No Notes: David katarzyna sterile 09-08 (Same As: l water 30 mL 12:00: Ancef, Herm faina 00 Kefzol) MEDICATION WASTE Product Size: 1000 mg Product Wasted: ___ mg Lactated 2017-08 No 1,000 mL, David katarzyna Ringers 09-08 Rate: KVO l Injection 12:00: rate, Thornton IV 1,000 mL 00 Route: IV, Dosing Weight 140.909 kg, Total Volume: 1,000, Start date: 07/09/18 6:00:00 [employer], Duration: 30 day, Stop date: 08/08/18 5:59:00 [employer], 2.75, m2 Norvasc 2017-08 Yes See Memoria 09-07 Instructio l 18:43: ns, PO Thornton 00 Daily, 0 Refill(s) Amlodipine 2017-08 Yes See Memoria 09-07 Instructio l 18:42: ns, PO Thornton 00 Daily, 0 Refill(s) amLODIPine amLODIPine 2017-08 [...] Notes: Memoria 0-05 (Same l 11:34: as:MORPhin Thornton 00 e Sulfate) Dexamethaso 2017-08 No 8 [...] 6:01:00 CDT, Stop date: 05/16/18 6:01:00 CDT No known No [facility] Zofran Zofran Yes Norah 1 tablet Commo n [place] as needed [facility] Losartan Losartan Yes Norah 1 tablet C ommon Potassium-H Potassium-H [place] [facility] CT[facility] CTZ [facility] Hydrocodone Hydrocodone Yes Norah 1 tablet Common -Acetaminop -Acetaminop [place] as needed [facility] Adderall XR Adderall XR Yes Norah 1 capsule Common [place] in the [facility] morning [facility] Omeprazole Omeprazole Yes Norah 1 capsule Common [place] 30 minutes [facility] before [facility] Dicyclomine Dicyclomine Yes Norah 1 tablet Common HCl HCl [place] [facility] Omeprazole Omeprazole No QD Omeprazole 40 MG 40 MG 40 MG Losartan Losartan No 1{table QD Losartan Potassium-H Potassium-H t} Potassium- CTZ 50-12.5 CTZ 50-12.5 HCTZ MG MG 50-12.5 MG Adderall XR Adderall XR No 1{capsu QD Adderall 20 MG 20 MG le_in_t XR 20 MG he_morn ing} HYDROcodone HYDROcodone No 1{table HYDROcodon -Acetaminop -Acetaminop t_as_ne e-Acetamin hen 5-325 hen 5-325 eded} ophen MG MG 5-325 MG Dicyclomine Dicyclomine No 1{table Dicyclomin HCl 20 MG HCl 20 MG t} e HCl 20 MG Zofran 8 MG Zofran 8 MG No 1{table Zofran 8 t_as_ne MG eded} Omeprazole Omeprazole No QD Omeprazole 40 MG 40 MG 40 MG Losartan Losartan No 1{table QD Losartan Potassium-H Potassium-H t} Potassium- CTZ 50-12.5 CTZ 50-12.5 HCTZ MG MG 50-12.5 MG Adderall XR Adderall XR No 1{capsu QD Adderall 20 MG 20 MG le_in_t XR 20 MG he_morn ing} HYDROcodone HYDROcodone No 1{table HYDROcodon -Acetaminop -Acetaminop t_as_ne e-Acetamin hen 5-325 hen 5-325 eded} ophen MG MG 5-325 MG Dicyclomine Dicyclomine No 1{table Dicyclomin HCl 20 MG HCl 20 MG t} e HCl 20 MG Zofran 8 MG Zofran 8 MG No 1{table Zofran 8 t_as_ne MG eded} Omeprazole Omeprazole No QD Omeprazole 40 MG 40 MG 40 MG Losartan Losartan No 1{table QD Losartan Potassium-H Potassium-H t} Potassium- CTZ 50-12.5 CTZ 50-12.5 HCTZ MG MG 50-12.5 MG Adderall XR Adderall XR No 1{capsu QD Adderall 20 MG 20 MG le_in_t XR 20 MG he_morn ing} HYDROcodone HYDROcodone No 1{table HYDROcodon -Acetaminop -Acetaminop t_as_ne e-Acetamin hen 5-325 hen 5-325 eded} ophen MG MG 5-325 MG Dicyclomine Dicyclomine No 1{table Dicyclomin HCl 20 MG HCl 20 MG t} e HCl 20 MG Zofran 8 MG Zofran 8 MG No 1{table Zofran 8 t_as_ne MG eded} Omeprazole Omeprazole No QD Omeprazole 40 MG 40 MG 40 MG Losartan Losartan No 1{table QD Losartan Potassium-H Potassium-H t} Potassium- CTZ 50-12.5 CTZ 50-12.5 HCTZ MG MG 50-12.5 MG Adderall XR Adderall XR No 1{capsu QD Adderall 20 MG 20 MG le_in_t XR 20 MG he_morn ing} Pantoprazol Pantoprazol No 1{table QD Pantoprazo e Sodium 40 e Sodium 40 t} le Sodium MG MG 40 MG HYDROcodone HYDROcodone No 1{table HYDROcodon -Acetaminop -Acetaminop t_as_ne e-Acetamin hen 5-325 hen 5-325 eded} ophen MG MG 5-325 MG Dicyclomine Dicyclomine No 1{table Dicyclomin HCl 20 MG HCl 20 MG t} e HCl 20 MG Topiramate Topiramate No 1{table QD Topiramate 25 MG 25 MG t} 25 MG tramadol tramadol No tramadol Zofran 8 MG Zofran 8 MG No 1{table Zofran 8 t_as_ne MG eded} Adderall XR Adderall XR No 1{capsu QD Adderall 20 MG 20 MG le_in_t XR 20 MG he_morn ing} Pantoprazol Pantoprazol No 1{table QD Pantoprazo e Sodium 40 e Sodium 40 t} le Sodium MG MG 40 MG HYDROcodone HYDROcodone No 1{table HYDROcodon -Acetaminop -Acetaminop t_as_ne e-Acetamin hen 5-325 hen 5-325 eded} ophen MG MG 5-325 MG Dicyclomine Dicyclomine No 1{table Dicyclomin HCl 20 MG HCl 20 MG t} e HCl 20 MG Topiramate Topiramate No 1{table QD Topiramate 25 MG 25 MG t} 25 MG tramadol tramadol No tramadol Zofran 8 MG Zofran 8 MG No 1{table Zofran 8 t_as_ne MG eded} Adderall XR Adderall XR No 1{capsu QD Adderall 20 MG 20 MG le_in_t XR 20 MG he_morn ing} Pantoprazol Pantoprazol No 1{table QD Pantoprazo e Sodium 40 e Sodium 40 t} le Sodium MG MG 40 MG HYDROcodone HYDROcodone No 1{table HYDROcodon -Acetaminop -Acetaminop t_as_ne e-Acetamin hen 5-325 hen 5-325 eded} ophen MG MG 5-325 MG Dicyclomine Dicyclomine No 1{table Dicyclomin HCl 20 MG HCl 20 MG t} e HCl 20 MG Topiramate Topiramate No 1{table QD Topiramate 25 MG 25 MG t} 25 MG tramadol tramadol No tramadol Zofran 8 MG Zofran 8 MG No 1{table Zofran 8 t_as_ne MG eded} Adderall XR Adderall XR No 1{capsu QD Adderall 20 MG 20 MG le_in_t XR 20 MG he_morn ing} Topiramate Topiramate No 1{table QD Topiramate 25 MG 25 MG t} 25 MG Pantoprazol Pantoprazol No 1{table QD Pantoprazo e Sodium 40 e Sodium 40 t} le Sodium MG MG 40 MG Dicyclomine Dicyclomine No 1{table Dicyclomin HCl 20 MG HCl 20 MG t} e HCl 20 MG Adderall XR Adderall XR No 1{capsu QD Adderall 20 MG 20 MG le_in_t XR 20 MG he_morn ing} tramadol tramadol No tramadol Zofran 8 MG Zofran 8 MG No 1{table Zofran 8 t_as_ne MG eded} HYDROcodone HYDROcodone No 1{table HYDROcodon -Acetaminop -Acetaminop t_as_ne e-Acetamin hen 5-325 hen 5-325 eded} ophen MG MG 5-325 MG Losartan Losartan No 1{table QD Losartan Potassium-H Potassium-H t} Potassium- CTZ 50-12.5 CTZ 50-12.5 HCTZ MG MG 50-12.5 MG Adderall XR Adderall XR No 1{capsu QD Adderall 20 MG 20 MG le_in_t XR 20 MG he_morn ing} Hydrocodone Hydrocodone No 1{table Hydrocodon -Acetaminop -Acetaminop t_as_ne e-Acetamin hen 5-325 hen 5-325 eded} ophen MG MG 5-325 MG Omeprazole Omeprazole No QD Omeprazole 40 MG 40 MG 40 MG Zofran 8 MG Zofran 8 MG No 1{table Zofran 8 t_as_ne MG eded} Dicyclomine Dicyclomine No 1{table Dicyclomin HCl 20 MG HCl 20 MG t} e HCl 20 MG Losartan Losartan No 1{table QD Losartan Potassium-H Potassium-H t} Potassium- CTZ 50-12.5 CTZ 50-12.5 HCTZ MG MG 50-12.5 MG Dicyclomine Dicyclomine No 1{table Dicyclomin HCl 20 MG HCl 20 MG t} e HCl 20 MG Adderall XR Adderall XR No 1{capsu QD Adderall 20 MG 20 MG le_in_t XR 20 MG he_morn ing} Omeprazole Omeprazole No QD Omeprazole 40 MG 40 MG 40 MG Zofran 8 MG Zofran 8 MG No 1{table Zofran 8 t_as_ne MG eded} Hydrocodone Hydrocodone No 1{table Hydrocodon -Acetaminop -Acetaminop t_as_ne e-Acetamin hen 5-325 hen 5-325 eded} ophen MG MG 5-325 MG Losartan Losartan No 1{table QD Losartan Potassium-H Potassium-H t} Potassium- CTZ 50-12.5 CTZ 50-12.5 HCTZ MG MG 50-12.5 MG Dicyclomine Dicyclomine No 1{table Dicyclomin HCl 20 MG HCl 20 MG t} e HCl 20 MG Adderall XR Adderall XR No 1{capsu QD Adderall 20 MG 20 MG le_in_t XR 20 MG he_morn ing} Omeprazole Omeprazole No QD Omeprazole 40 MG 40 MG 40 MG Zofran 8 MG Zofran 8 MG No 1{table Zofran 8 t_as_ne MG eded} Hydrocodone Hydrocodone No 1{table Hydrocodon -Acetaminop -Acetaminop t_as_ne e-Acetamin hen 5-325 hen 5-325 eded} ophen MG MG 5-325 MG Losartan Losartan No 1{table QD Losartan Potassium-H Potassium-H t} Potassium- CTZ 50-12.5 CTZ 50-12.5 HCTZ MG MG 50-12.5 MG Adderall XR Adderall XR No 1{capsu QD Adderall 20 MG 20 MG le_in_t XR 20 MG he_morn ing} HYDROcodone HYDROcodone No 1{table HYDROcodon -Acetaminop -Acetaminop t_as_ne e-Acetamin hen 5-325 hen 5-325 eded} ophen MG MG 5-325 MG Omeprazole Omeprazole No QD Omeprazole 40 MG 40 MG 40 MG Zofran 8 MG Zofran 8 MG No 1{table Zofran 8 t_as_ne MG eded} Dicyclomine Dicyclomine No 1{table Dicyclomin HCl 20 MG HCl 20 MG t} e HCl 20 MG HYDROcodone HYDROcodone No 1{table HYDROcodon -Acetaminop -Acetaminop t_as_ne e-Acetamin hen 5-325 hen 5-325 eded} ophen MG MG 5-325 MG Dicyclomine Dicyclomine No 1{table Dicyclomin HCl 20 MG HCl 20 MG t} e HCl 20 MG Zofran 8 MG Zofran 8 MG No 1{table Zofran 8 t_as_ne MG eded} Immunizations Ordered Immunization Filled Immunization Date Status Commen ts Source Name Name Influenza, 2022-05-19 [address]pleted [facility] injectable, 00:00:00 quadrivalent (afluria, fluzone) COVID-19 Pfizer & 2021-05-06 [facility]) [facility] 2020-05-23 Completed [facility] - (Triamcinolone) (Triamcinolone) 11:35:00 [facility] Jaci Beatty 2020-05-23 Completed [facility] - (Triamcinolone) (Triamcinolone) 11:35:00 [facility] Jaci Beatty 2020-05-23 Completed [facility] - (Triamcinolone) (Triamcinolone) 11:35:00 [facility] Jaci Beatty 2020-05-23 Completed [facility] - (Triamcinolone) (Triamcinolone) 11:35:00 [facility] Jaci Beatty 2020-05-23 Completed [facility] - (Triamcinolone) (Triamcinolone) 11:35:00 [facility] Jaci [employer] 2020-05-23 Completed [facility] - (Triamcinolone) (Triamcinolone) 11:35:00 [facility] Kenalog Kenalog 2020-05-23 Completed [facility] - (Triamcinolone) (Triamcinolone) 11:35:00 [facility] Bupivicaine [place] Bupivicaine [place] 2019-11-16 Completed [facility] - 11:23:00 [facility] Bupivicaine [place] Bupivicaine [place] 2019-11-16 Completed [facility] - 11:23:00 [facility] Bupivicaine [place] Bupivicaine [place] 2019-11-16 Completed [facility] - 11:23:00 [facility] Bupivicaine [place] Bupivicaine [place] 2019-11-16 Completed [facility] - 11::00 [facility] Bupivicaine [place] Bupivicaine [place] 2019-11-16 Completed [facility] - 11::00 [facility] Bupivicaine [place] Bupivicaine [place] 2019-11-16 Completed [facility] - 11::00 [facility] Bupivicaine [place] Bupivicaine [place] 2019-11-16 Completed [facility] - 11::00 [facility] Kenalog Kenalog 2019-11-16 Completed [facility] - (Triamcinolone) (Triamcinolone) 11::00 [facility] Kenalog Kenalog 2019-11-16 Completed [facility] - (Triamcinolone) (Triamcinolone) 11::00 [facility] Kenalog Kenalog 2019-11-16 Completed [facility] - (Triamcinolone) (Triamcinolone) 11:22:00 [facility] [facility] Kenalog Kenalog 2019-11-16 Completed [facility] (Triamcinolone) (Triamcinolone) 11::00 [facility] Kenalog Kenalog 2019-11-16 Completed [facility] (Triamcinolone) (Triamcinolone) 11:22:00 [facility] Kenalog Kenalog 2019-11-16 Completed [facility] (Triamcinolone) (Triamcinolone) 11::00 [facility] Kenalog Kenalog 2019-11-16 Completed [facility] (Triamcinolone) (Triamcinolone) 11:22:00 [facility] Fluzone Quadrivalent 2018-06-03 Completed [facility] 0.5 ML Intramuscular 14:35:00 Suspension Vital Signs Vital Name Observation Time Observation Value Comments Source Body height 2022-07-27 190.5 cm [facility] 14:41:00 Body weight 2022-07-27 158.305 kg [facility] 14:41:00 BMI 2022-07-27 43.62 kg/m2 [facility] 14:41:00 height 2022-06-22 72 [in_i] [facility] 11:20:00 [facility] weight 2022-06-22 343 [lb_av] [facility] - 11:20:00 [facility] temperature 2022-06-22 96.5 [degF] [facility] - 11:20:00 [facility] bmi 2022-06-22 46.51 kg/m2 [facility] - 11:20:00 [facility] oximetry 2022-06-22 97 % [facility] - 11:20:00 [facility] respiratory rate 2022-06-22 18 /min [facility] 11:20[facility]00 [facility] blood pressure 2022-06-22 141 mm[Hg] [facility] - systolic 11:20:00 [facility] blood pressure 2022-06-22 74 mm[Hg] [facility] - diastolic 11:20:00 [facility] Systolic blood 2022-05-16 110 mm[Hg] [facility] pressure 20:28:00 Diastolic blood 2022-05-16 72 mm[Hg] [facility] pressure 20:28:00 Heart rate 2022-05-16 60 /min [facility] 20:28:00 Body temperature 2022-05-16 36.11 Chrissie [facility] 20:17:00 Body height 2022-05-16 190.5 cm [facility] 20:17:00 Body weight 2022-05-16 158.305 kg [facility] 20:17:00 BMI 2022-05-16 43.62 kg/m2 [facility] 20:17:00 height 2021-04-06 72 [in_i] [facility] 14:30:00 [facility] weight 2021-04-06 319 [lb_av] [facility] 14:30:00 [facility] temperature 2021-04-06 98 [degF] [facility] - 14:30:00 [facility] bmi 2021-04-06 43.26 kg/m2 [facility] - 14:30:00 [facility] blood pressure 2021-04-06 121 mm[Hg] [facility] - systolic 14:30:00 [facility] blood pressure 2021-04-06 76 mm[Hg] [facility] - diastolic 14:30:00 [facility] height 2020-07-12 72 [in_i] [facility] 16:30:00 [facility] weight 2020-07-12 318.3 [lb_av] [facility] 16:30:00 [facility] temperature 2020-07-12 97.5 [degF] [facility] 16:30:00 [facility] bmi 2020-07-12 43.16 kg/m2 [facility] 16:30:00 [facility] oximetry 2020-07-12 97 % [facility] - 16:30:00 [facility] respiratory rate 2020-07-12 18 /min [facility] - 16:30:00 [facility] blood pressure 2020-07-12 129 mm[Hg] [facility] - systolic 16:30:00 [facility] blood pressure 2020-07-12 64 mm[Hg] [facility] - diastolic 16:30:00 [facility] height 2020-05-23 72 [in_i] [facility] 11:20:00 [facility] weight 2020-05-23 314.4 [lb_av] [facility] 11:20:00 [facility] temperature 2020-05-23 97.2 [degF] [facility] 11:20:00 [facility] bmi 2020-05-23 42.64 kg/m2 [facility] - 11:20:00 [facility] oximetry 2020-05-23 98 % [facility] - 11:20:00 [facility] respiratory rate 2020-05-23 18 /min [facility] 11:20[facility]00 [facility] blood pressure 2020-05-23 140 mm[Hg] [facility] - systolic 11:20:00 [facility] blood pressure 2020-05-23 74 mm[Hg] [facility] - diastolic 11:20:00 [facility] Heart [facility] 2021-10-10 [facility] 14:[facility] Systolic (mm Hg) 2021-10-10 [facility] 14:07:42 Diastolic (mm Hg) 2021-10-10 [facility] 14:07:42 Heart Rate 2021-10-10 [facility] 14:07:42 Temperature Oral 2021-10-10 99.2 F [facility] (F) 14:07:27 Heart Rate 2021-10-10 [facility] 10:20:56 Respitory Rate 2021-10-10 [facility] 10:20:56 Systolic (mm Hg) 2021-10-10 [facility] 10:20:37 Diastolic (mm Hg) 2021-10-10 [facility] 10:20:37 Temperature Oral 2021-10-10 98.1 F [facility] (F) 10:19:31 Respitory Rate 2021-10-10 [facility] 05:19:58 Systolic (mm Hg) 2021-10-10 [facility] 05:19:44 Diastolic (mm Hg) 2021-10-10 [facility] [...] n 23:44:00 Temperature Oral 2021-10-08 98.6 F [facility] rmann (F) 23:44:00 Heart Rate 2021-10-05 [facility] 13:48:13 Respitory Rate 2021-10-05 [facility] 13:48:13 Systolic (mm Hg) 2021-10-05 [facility] 13:47:41 Diastolic (mm Hg) 2021-10-05 [facility] 13:47:41 Heart Rate 2021-10-05 [facility] 13:47:41 Temperature Oral 2021-10-05 99.2 F [facility] Harpreet rmann (F) 13:47:17 Heart Rate 2021-10-05 [facility] 09:39:43 Respitory Rate 2021-10-05 [facility] 09:39:43 Systolic (mm Hg) 2021-10-05 [facility] 09:39:35 Diastolic (mm Hg) 2021-10-05 [facility] 09:39:35 Temperature Oral 2021-10-05 98.4 F [facility] He rmann (F) 09:38:41 Respitory Rate 2021-10-05 [facility] 06:44:26 Systolic (mm Hg) 2021-10-05 [facility] 06:44:17 Diastolic (mm Hg) 2021-10-05 [facility] 06:44:17 Temperature Oral 2021-10-05 98.7 F [facility] (F) 06:42:51 Height 2021-10-03 190.5 cm [facility] Sadi n 12:40:00 Weight 2021-10-03 [facility] 12:40:00 BMI Calculated 2021-10-03 [facility] 12:40:00 Height 2021-10-02 190.5 cm [facility] 16:30:00 Weight 2021-10-02 [facility] 16:30:00 BMI Calculated 2021-10-02 [facility] 16:30:00 Systolic (mm Hg) 2021-05-11 [facility] rmann 13:50:00 Diastolic (mm Hg) 2021-05-11 [facility] H ermann 13:50:00 Temperature Oral 2021-05-11 98.5 F [facility] rmann (F) 13:50:00 Systolic (mm Hg) 2021-05-11 [facility] rmann 12:22:00 Diastolic (mm Hg) 2021-05-11 [facility] ermann 12:22:00 Systolic (mm Hg) 2021-05-11 [facility] rmann 11:21:00 Diastolic (mm Hg) 2021-05-11 [facility] H ermann 11:21:00 Respitory Rate 2021-05-11 [facility] 11:21:00 Respitory Rate 2021-05-11 [facility] 10:42:00 Respitory Rate 2021-05-11 [facility] 09:02:00 Temperature Oral 2021-05-11 98.4 F [facility] Harpreet rmann (F) 08:30:00 Heart Rate 2021-05-11 [facility] 06:50:00 Heart Rate 2021-05-11 [facility] Sadi n 06:18:00 Heart Rate 2021-05-11 [facility] 00:55:00 Temperature Oral 2021-05-11 98.2 F [facility] rmann (F) 00:55:00 BP Systolic 2018-10-02 155 mm[Hg] Location: E; [facility] 15:26:00 Position: Sitting BP Diastolic 2018-10-02 88 mm[Hg] Location: E; [facility] 15:26:00 Position: Sitting Height 2018-10-02 75 [...] [facility] 10:25:00 Systolic (mm Hg) 2018-07-10 [facility] rmann 00:00:00 Diastolic (mm Hg) 2018-07-10 [facility] ermann 00:00:00 Respitory Rate 2018-07-10 [facility] 00:00:00 Systolic (mm Hg) 2018-07-09 [facility] rmann 23:45:00 Diastolic (mm Hg) 2018-07-09 [facility] ermann 23:45:00 Respitory Rate 2018-07-09 [facility] 23:45:00 Systolic (mm Hg) 2018-07-09 [facility] rmann 23:30:00 Diastolic (mm Hg) 2018-07-09 [facility] ermann 23:30:00 Respitory Rate 2018-07-09 [facility] Herm faina 23:30:00 BMI Calculated 2018-07-09 [facility] Herm faina 18:52:00 Weight 2018-07-09 [facility] [...] BP Systolic 2018-06-03 136 mm[Hg] Location: LUE; [facility] 14:09:00 Position: Sitting BP Diastolic 2018-06-03 75 mm[Hg] Location: SHREYAS; [facility] 14:09:00 Position: Sitting Height 2018-06-03 75 [...] n 13:32:00 Systolic (mm Hg) 2018-05-16 [facility] 12:29:00 Diastolic (mm Hg) 2018-05-16 [facility] 12:29:00 Respitory Rate 2018-05-16 [facility] 12:29:00 Heart Rate 2018-05-16 [facility] 12:29:00 Temperature Oral 2018-05-16 98.4 F [facility] (F) 12:29:00 Systolic (mm Hg) 2018-05-16 [facility] 11:50:00 Diastolic (mm Hg) 2018-05-16 [facility] 11:50:00 Heart Rate 2018-05-16 [facility] 11:50:00 Respitory Rate 2018-05-16 Magdalene Joyner faina 11:50:00 Temperature Oral 2018-05-16 98.8 F Magdalene veliz (F) 10:56:00 Weight 2018-05-16 Magdalene Avtiia n 10:56:00 Procedures Procedure Date / Time Performing Clinician Source Performed REFERRAL- REQUEST/RESPONSE 2021-03-30 05:01:00 Doctor Unassigned , [facility] Myringotomy 2020-10-10 00:00:00 [facility] Her jones [U] XRAY KNEE 4 OR MORE 2018-07-24 00:00:00 [facility] VWS RIGHT [id number] Emg/Ncv 2018-06-20 00:00:00 [facility] Lab - Sleep 2018-06-03 00:00:00 [facility] Study Split Night Ulnar nerve decompression 2015-08-12 00:00:00 Me morial [address] [facility] of wisdom tooth Memor ial [facility] History of Cubital tunnel [facility] repair History of [facility]rist [facility] Plan of Care Planned Activity Planned Date Details Comments Source Future Scheduled Test 2022-09-07 COVID-19 VACCINE [facility] 19:13:43 (#1) [code = COVID-19 VACCINE (#1)] Future Scheduled Test 2022-09-07 INFLUENZA VACCINE [facility] 19:13:43 [code = INFLUENZA VACCINE] Future Scheduled Test 2022-07-28 COVID-19 VACCINE [facility] 16:56:35 (#1) [code = COVID-19 VACCINE (#1)] Future Scheduled Test 2022-07-28 INFLUENZA VACCINE [facility] 16:56:35 [code = INFLUENZA VACCINE] Future Scheduled Test 2022-07-28 COVID-19 VACCINE [facility] 16:56:35 (#1) [code = COVID-19 VACCINE (#1)] Future Scheduled Test 2022-07-28 INFLUENZA VACCINE [facility] 16:56:35 [code = INFLUENZA VACCINE] Future Scheduled Test 2022-04-13 HEPATITIS B Method [facility] 21:38:54 VACCINES (1 of 3 - 3-dose series) [code = HEPATITIS B VACCINES (1 of 3 - 3-dose series)] Future Scheduled Test 2022-04-13 COVID-19 VACCINE [facility] 21:38:54 (#1) [code = COVID-19 VACCINE (#1)] Future Scheduled Test 2022-04-13 INFLUENZA VACCINE [facility] 21:38:54 [code = INFLUENZA VACCINE] Future Scheduled Test 2022-04-13 HEPATITIS B Method [facility] 21:38:54 VACCINES (1 of 3 - 3-dose series) [code = HEPATITIS B VACCINES (1 of 3 - 3-dose series)] Future Scheduled Test 2022-04-13 COVID-19 VACCINE [facility] 21:38:54 (#1) [code = COVID-19 VACCINE (#1)] Future Scheduled Test 2022-04-13 INFLUENZA VACCINE [facility] 21:38:54 [code = INFLUENZA VACCINE] Future Scheduled Test 2022-04-13 HEPATITIS B Method [facility] 21:38:54 VACCINES (1 of 3 - 3-dose series) [code = HEPATITIS B VACCINES (1 of 3 - 3-dose series)] Future Scheduled Test 2022-04-13 COVID-19 VACCINE [facility] 21:38:54 (#1) [code = COVID-19 VACCINE (#1)] Future Scheduled Test 2022-04-13 INFLUENZA VACCINE [facility] 21:38:54 [code = INFLUENZA VACCINE] Future Scheduled Test 2022-04-13 HEPATITIS B Method [facility] 21:38:54 VACCINES (1 of 3 - 3-dose series) [code = HEPATITIS B VACCINES (1 of 3 - 3-dose series)] Future Scheduled Test 2022-04-13 COVID-19 VACCINE [facility] 21:38:54 (#1) [code = COVID-19 VACCINE (#1)] Future Scheduled Test 2022-04-13 INFLUENZA VACCINE [facility] 21:38:54 [code = INFLUENZA VACCINE] Future Scheduled Test 2022-04-13 HEPATITIS B Method [facility] 21:38:54 VACCINES (1 of 3 - 3-dose series) [code = HEPATITIS B VACCINES (1 of 3 - 3-dose series)] Future Scheduled Test 2022-04-13 COVID-19 VACCINE [facility] 21:38:54 (#1) [code = COVID-19 VACCINE (#1)] Future Scheduled Test 2022-04-13 INFLUENZA VACCINE [facility] 21:38:54 [code = INFLUENZA VACCINE] Future Scheduled Test 2022-04-13 HEPATITIS B Method [facility] 21:38:54 VACCINES (1 of 3 - 3-dose series) [code = HEPATITIS B VACCINES (1 of 3 - 3-dose series)] Future Scheduled Test 2022-04-13 COVID-19 VACCINE [facility] 21:38:54 (#1) [code = COVID-19 VACCINE (#1)] Future Scheduled Test 2022-04-13 INFLUENZA VACCINE [facility] 21:38:54 [code = INFLUENZA VACCINE] Diagnostic Test 2018-06-20 Emg/Ncv [code = [facility] Pending 00:00:00 Emg/Ncv] Diagnostic Test 2018-06-20 Emg/Ncv [code = [facility] Pending 00:00:00 Emg/Ncv] Future Scheduled Test COVID-19 VACCINE [facility] (1) [code = COVID-19 VACCINE (1)] Future Scheduled Test Hepatitis C Method [facility] screening (procedure) [code = 080150822] Future Scheduled Test INFLUENZA VACCINE [facility] [code = INFLUENZA VACCINE] Encounters Start End Encounter Admission Attending Care Care Encounter Source Date/Time Date/Time Type Type Clinicians Facility Department ID 2022-09-04 Outpatient [facility] [id number] [place] 09:48:26 [id number] [facility] 2022-09-03 Outpatient [facility] [id number] [place] 10:22:47 [id number] [facility] 2022-08-15 Outpatient [facility] [id number] [place] 08:54:00 [id number] [facility] 2022-07-30 Outpatient [facility] [id number] [place] 09:03:26 [id number] [facility] 2022-07-27 Outpatient [facility] [id number] [place] 09:39:00 [id number] [facility] 2022-06-22 [facility] [id number] [facility] 11:03:01 [facility] [address] [facility] 2022-06-20 Outpatient [facility] [id number] [place] 15:53:00 [id number] [facility] 2022-06-20 Outpatient Vazquez, STLMLC STLMLC [id number] Common 09:33:01 John [id number] [facility] 2022-06-19 Outpatient [facility] [id number] [place] 15:00:31 [id number] [facility] 2022-06-12 Outpatient [facility] [id number] [place] 09:35:34 [id number] [facility] 2022-05-25 Outpatient [facility] [id number] [place] 13:39:31 [id number] [facility] 2021-10-25 Outpatient MIGUEL ANGEL, [facility] ANAY [address] [facility] 11:23:00 HELMETTA 2021-09-28 Outpatient DAY, NOAH [facility] [id number] [place] 16:10:44 [facility] 2021-09-06 Outpatient Vazquez, STLMLC STLMLC [id number] Common 12:12:10 [facility] [id number] [facility] 2021-09-06 Outpatient Vazquez, STLMLC STLMLC [id number] Common 12:10:54 John [id number] [facility] 2021-09-06 Outpatient Vazquez, STLMLC STLMLC [id number] Common 12:09:52 John [id number] [facility] 2021-09-06 Outpatient Vazquez, STLMLC STLMLC [id number] Common 11:54:05 John [id number] [facility] 2021-09-06 Outpatient Vazquez, STLMLC STLMLC [id number] Common 11:06:57 John 20225 [facility] 2021-09-06 Outpatient Vazquez, STLMLC STLMLC [id number] Common 11:06:47 John [id number] [facility] 2021-04-18 Outpatient PATKI, [facility] [id number] [place] 14:45:53 [facility] 2022-09-26 2022-09-26 Outpatient YUKSEL, [facility] [id number] [place] 13:15:00 [facility]15:[facility] 2022-08-16 2022-08-16 Outpatient TUCKER, [facility] [id number] [place] 14:30:00 14:30:00 [facility] 2022-08-01 2022-08-01 Outpatient TUCKER, [facility] [id number] [place] 11:00:00 11:00:00 [facility] 2022-07-27 2022-07-27 Office Alyse, UTP 6400 [id number] [place] 08:30:00 09:48:28 Visit Manasa JOYCE [id number] [facility] [id number] 2022-07-25 2022-07-25 (TEL) STLMLC STLMLC [id number] Co mmon 00:00:00 00:00:00 [facility] 2022-06-22 2022-06-22 (TEL) STLMLC STLMLC [id number] Co mmon 00:00:00 00:00:00 [facility] 2022-06-22 2022-06-22 OFFICE STLMLC STLMLC [id number] Co mmon 00:00:00 00:00:[address] [facility] LEVEL 4 [facility] 2022-06-20 2022-06-20 Outpatient DAY, NOAH [facility] [id number] [place] 14:00:00 14:00:00 [facility] 2022-06-13 2022-06-13 Outpatient DAY, NOAH [facility] [id number] [place] 13:15:00 13:15:00 [facility] 2022-06-06 2022-06-06 (TEL) STLMLC STLMLC [id number] Co mmon 00:00:00 00:00:00 [facility] 2022-06-06 2022-06-06 (TEL) STLMLC STLMLC [id number] Co mmon 00:00:00 00:00:00 [facility] 2022-05-17 2022-05-19 Outpatient E DAY, NOAH [facility] [id number] [facility] 10:13:00 11:40:00 2022-05-16 2022-05-16 Office DAY, NOAH [facility] 6400 [id number] [id number] [place] 15:45:00 15:45:[address] [id number] Health [id number] [id number] 2022-05-12 2022-05-12 Emergency E ALEJANDRA, [facility] [id number] [facility] 03:16:00 21:21:00 SONIA 2022-03-21 2022-03-21 Outpatient DAY, NOAH [facility] [id number] [place] 15:00:00 15:00:00 Health 2022-03-14 2022-03-14 Telephone Day, Noah UTP 6400 1.2.840.114 [id number] [place] 00:00:00 00:00:[address] [place] [address] [id number] Health [id number] [id number] 2022-03-14 2022-03-14 Telephone Patki, UTP 6400 1.2.840.114 [id number] [place] 00:00:00 00:00:[address] [id number] Health [id number] [id number] 3 2022-03-14 2022-03-14 Telephone Day, Noah UTP 6400 1.2.840.114 [id number] [place] 00:00:00 00:00:[address] [place] [address] [id number] Health [id number] [id number] 2022-03-13 2022-03-13 Telephone Day, Noah UTP 6400 1.2.840.114 [id number] [place] 00:00:00 00:00:[address] [place] [address] [id number] Health [id number] [id number] 2022-01-01 2022-01-01 Telephone Day, Noah UTP 6400 1.2.840.114 [id number] [place] 00:00:[place] 00:00:[address] [place] [address] [id number] Health [id number] [id number] 2021-12-28 2021-12-28 Telephone Day, Noah UTP 6400 1.2.840.114 [id number] [place] 00:00:00 00:00:[address] [id number] Health 9.2.7.2.686 [id number] 2021-12-06 2021-12-06 Telephone Day, Noah UTP 6400 1.2.840.114 [id number] [place] 00:00:00 00:00:[address] [place] [address] [id number] Health 9.2.7.2.686 [id number] 2021-11-27 2021-11-27 Telephone Day, Noah UTP 6400 1.2.840.114 [id number] [place] 00:00:00 00:00:[address] [place] [address] [id number] Health 9.2.7.2.686 [id number] 2021-11-01 2021-11-01 Telephone Day, Noah UTP 6400 1.2.840.114 [id number] [place] 00:00:00 00:00:[address] [place] [address] [id number] Health 9.2.7.2.686 [id number] 2021-10-30 2021-10-30 Telephone Rae Naranjo UTP 1.2.840 .114 [id number] [place] 00:00:00 00:00:00 Rae Naranjo NIKOLAI [id number] Health MEDICAL 9.2.7.2.686 [facility] [id number] 1 2021-10-27 2021-10-27 Telephone Day, Noah UTP 6410 1.2.840.114 [id number] [place] 00:00:00 00:00:[address] [place] [address] [id number] Health 9.2.7.2.686 [id number] 2021-10-25 2021-10-26 Outpt Diag Tracio [facility] [id number] [facility] 18:11:00 04:59:00 Services [place] [id number] cooper Cedeño [place] 2021-10-24 2021-10-24 Telephone Layne Sánchez UTP 6400 1.2.840.1 [id number] [place] 00:00:00 00:00:[address]ánchezN ST [id number] Health 9.2.7.2.686 [id number] 2021-10-24 2021-10-24 Telephone Day, Noah UTP 6400 1.2.840.114 [id number] [place] 00:00:00 00:00:[address] [place] [address] [id number] Health 9.2.7.2.686 [id number] 2021-10-20 2021-10-20 Office Miguel Angel, EUNICE 1.2.840.114 [id number] [place] 13:30:00 14:18:52 Visit Geronimo MENCHACA [id number] H [facility] MEDICAL 9.2.7.2.686 [facility] [id number] 1 2021-10-18 2021-10-19 Outpt Diag nullFlavo [facility] [id number] [facility] 17:43:00 05:59:00 Services r Outpatient 00 l Imaging Davidson Cedeño 2021-10-18 2021-10-18 Office Day, Noah UTP 6400 1.2.840.114 1 [id number] [place] 10:00:00 10:15:[address] [id number] Health 9.2.7.2.686 [id number] 2021-10-18 2021-10-18 Telephone Day, Noah UTP 6400 1.2.840.114 [id number] [place] 00:00:00 00:00:[address] [id number] Health 9.2.7.2.686 [id number] 2021-10-18 2021-10-18 Telephone Day, Noah UTP 6400 1.2.840.114 [id number] [place] 00:00:00 00:00:[address] [place] [address] [id number] Health 9.2.7.2.686 [id number] 2021-10-17 2021-10-17 Telephone Day, Noah UTP 6400 1.2.840.114 [id number] [place] 00:00:00 00:00:[address] [place] [address] [id number] Health 9.2.7.2.686 [id number] 2021-10-13 2021-10-13 Telephone Day, Noah UTP 6400 1.2.840.114 [id number] [place] 00:00:00 00:00:[address] [place] [address] [id number] Health 9.2.7.2.686 [id number] 2021-10-08 2021-10-10 Inpatient [facility] [id number] Memoria 23:43:00 15:48:[address] 2021-10-08 2021-10-10 Inpatient E DAY, NOAH [facility] [address]57 [facility] 19:58:00 09:48:00 2021-10-03 2021-10-05 Inpatient [facility] [id number] Memoria 11:15:00 16:21:[address] 2021-10-03 2021-10-05 Inpatient DAY, NOAH [facility] 7505 [facility] 05:15:00 10:21:00 2021-10-04 2021-10-04 Telephone Day, Noah UTP 6400 1.2.840.114 [id number] [place] 00:00:00 00:00:[address] [place] [address] [id number] Health 9.2.7.2.686 [id number] 2021-09-28 2021-09-28 Telephone Day, Noah UTP 6400 1.2.840.114 [id number] [place] 00:00:00 00:00:[address] [place] [address] [id number] Health 9.2.7.2.686 [id number] 2021-09-28 2021-09-28 Telephone Dorothea Delgadillo UTP 6400 1.2.84 0.114 [id number] [place] 00:00:00 00:00:[address] [id number] Health 9.2.7.2.686 [id number] 2021-09-22 2021-09-22 Telephone Day, Noah UTP 6400 1.2.840.114 [id number] [place] 00:00:00 00:00:[address] [id number] Health 9.2.7.2.686 [id number] 2021-09-20 2021-09-20 Telephone Day, Noah UTP 6400 1.2.840.114 [id number] [place] 00:00:00 00:00:[address] [id number] Health 9.2.7.2.686 [id number] 2021-09-18 2021-09-18 Telephone Amelia Cameron UTP 6400 1.2.840.11 4 [id number] [place] 00:00:00 00:00:[address] 350.1.13.58 Health 9.2.7.2.686 [id number] 2021-09-07 2021-09-07 Office [place], UTP 6400 1.2.840.114 [id number] [place] 13:30:00 14:35:02 [address] 350.1.13.58 Health 9.2.7.2.686 [id number] 3 2021-09-07 2021-09-07 Telephone [place], UTP 6400 1.2.840.114 [id number] [place] 00:00:00 00:00:[address] 350.1.13.58 Health 9.2.7.2.686 [id number] 3 2021-09-05 2021-09-05 Telephone [place], UTP 6400 1.2.840.114 [id number] [place] 00:00:00 00:00:[address] 350.1.13.58 Health 9.2.7.2.686 [id number] 3 2021-09-03 2021-09-03 Telephone Patki, UTP 6400 1.2.840.114 [id number] [place] 00:00:00 00:00:[address] [id number] Health [id number] 3 2021-08-02 2021-08-02 Telephone Stacy, EUNICE 6400 1.2.840.114 [id number] [place] 00:00:00 00:00:[address] [id number] Health [id number] [id number] 3 2021-05-18 2021-05-18 Orders Brii Howard UTP 6400 1.2.840.114 [id number] [place] 00:00:00 00:00:[address] [id number] Health 9.2.7.2.686 [id number] 3 2021-05-18 2021-05-18 Orders EUNICE Kumar 6400 1.2.840.114 [id number] [place] 00:00:00 00:00:[address] [id number] Health 9.2.7.2.686 [id number] 3 2021-05-15 2021-05-15 Telephone Stacy, EUNICE 6400 1.2.840.114 [id number] [place] 00:00:00 00:00:[address] [id number] Health 9.2.7.2.686 [id number] 3 2021-05-11 2021-05-11 [facility] [id number] [facility] 00:42:19 14:08:[address] 2021-05-11 2021-05-11 (TEL) STLC STLC [id number] Co mmon 00:00:00 00:00:00 [facility] 2021-05-09 2021-05-09 Telephone Stacy, EUNICE 6400 1.2.840.114 [id number] [place] 00:00:00 00:00:[address] [id number] Health 9.2.7.2.686 [id number] 3 2021-05-08 2021-05-08 Telephone Patki, UTP 6400 1.2.840.114 [id number] [place] 00:00:00 00:00:[address] [id number] Health 9.2.7.2.686 [id number] 3 2021-05-08 2021-05-08 Telephone Patki, UTP 6400 1.2.840.114 [id number] [place] 00:00:00 00:00:[address] [id number] Health 9.2.7.2.686 [id number] 3 2021-05-08 2021-05-08 Telephone Patki, UTP 6400 1.2.840.114 [id number] [place] 00:00:00 00:00:[address] [id number] Health 9.2.7.2.686 [id number] 3 2021-05-03 2021-05-03 Office Patki, UTP 6400 1.2.840.114 [id number] [place] 13:38:06 14:42:[address] [id number] Health 9.2.7.2.686 [id number] 3 2021-05-03 2021-05-03 Office Patki, UTP 6400 1.2.840.114 [id number] [place] 13:38:06 14:42:[address] [id number] Health 9.2.7.2.686 [id number] 3 2021-04-18 2021-04-18 Office Patki, UTP 6400 1.2.840.114 [id number] [place] 13:09:45 14:44:[address] [id number] Health 9.2.7.2.686 [id number] 3 2021-04-18 2021-04-18 Office Patki, UTP 6400 1.2.840.114 [id number] [place] 13:09:45 14:44:[address] [id number] Health 9.2.7.2.686 [id number] 3 2021-04-06 2021-04-06 [facility] [id number] Co mmon 00:00:00 00:00:00 VISIT EST Spir it PT LEVEL 3 - [facility] 2021-04-06 2021-04-06 (TEL) STLMLC STLC [id number] Co mmon 00:00:00 00:00:00 [facility] 2021-03-31 2021-03-31 [facility] [id number] Co mmon 00:00:00 00:00:00 [facility] 2021-03-30 2021-03-30 Orders Doctor AICHA 1.2.840.114 [id number] 00:00:00 00:00:00 Only Unassigned, ABDULKADIR 350.1.13.10 [place] [facility] 4.2.7.2.686 [id number] 2021-03-30 2021-03-30 Orders Doctor AICHA 1.2.840.114 [id number] [facility] 00:00:00 00:00:00 Only Unassigned, ABDULKADIR [id number] ity of [place] [facility] 4.2.7.2.686 Norberto as [id number] [address] 2021-03-21 2021-03-21 Ancillary 1, Gal UNIVERSIT 1.2.840.114 [id number] 14:21:34 15:15:15 Visit Audio Sound Y 350.1.13.10 [address] 4.2.7.2.686 [facility] [id number] DG. 141 2021-03-21 2021-03-21 Outpatient R RENZO [facility] [id number] Univers 13:45:00 13:45:00 FABY ity [facility] 2021-01-17 2021-01-17 Emergency X BARBARA [facility] ERT [id number] Univers 19:28:00 19:28:00 LAURENCE ity [facility] 2020-11-21 2020-11-21 Emergency X [facility] ERT [id number] Univers 15:51:00 15:51:00 ity [facility] 2020-07-20 2020-07-20 (TEL) STLMLC STLMLC [id number] Co mmon 00:00:00 00:00:00 Spirit - [facility] 2020-07-12 2020-07-12 OFFICE STLMLC STLMLC [id number] Co mmon 00:00:00 00:00:00 VISIT EST Spir it PT LEVEL 3 - [facility] 2020-05-23 2020-05-23 OFFICE STLMLC STLMLC [id number] Co mmon 00:00:00 00:00:00 VISIT EST Spir it PT LEVEL 3 [facility] 2020-02-24 2020-02-24 [facility] [id number] Common 14:42:00 14:42:[address] [facility] 2020-02-22 2020-02-22 [facility] [id number] Common 13:51:00 13:51:[address] [facility] 2019-12-10 2019-12-10 [facility] [id number] Common 15:39:00 15:39:[address] [facility] 2019-12-08 2019-12-08 [facility] [id number] Common 13:40:00 13:40:[address] [facility] 2019-12-07 2019-12-07 [facility] 30 [id number] Common 12:05:00 12:05:[address] [facility] 2019-11-16 2019-11-16 [facility] [id number] Common 11:00:00 11:00:00 t [facility] Bone [facility] Spiri t and Joint [facility] - [facility] 2019-10-21 2019-10-21 Emergency X Blaire PADRON [facility] ERT [id number] Univers 11:24:16 14:51:00 ity of [facility] 2019-09-29 2019-09-29 [facility] [id number] Common 09:21:00 09:21:00 t Bone Bone and Spiri t and Joint Joint - [facility] 2019-09-21 2019-09-21 [facility] [id number] Common 14:00:00 14:00:00 t Bone Bone and Spiri t and Joint Joint - [facility] 2019-03-13 2019-03-13 Appointritu [facility] [id number] [place] 09:00:00 09:00:00 t; Lesa RODRIGUEZ Ph savannah Roberto M.D. 2018-10-02 2018-10-02 [facility]EN[facility] [id number] [place] 15:00:00 15:00:00 t; Asher JONES i, M.D. ans POURAN, M.D. 2018-09-25 2018-09-25 Appointritu CEJA [facility] [id number] [place] 10:30:00 10:30:00 t; BRANT CEJA NP Health and Valery GUO NP Wellness [facility] 2018-09-22 2018-09-[address] [facility] [id number] [place] 15:30:00 15:30:00 t; Asher JONES i, M.D. ans POURAN, M.D. 2018-08-22 2018-08-22 Appointritu MUNO[facility] [id number] [place] 09:30:00 09:30:00 t; Lesa BRYANT Ph savannah Rios M.D. 2018-07-29 2018-07-29 AppointEUNICE Paul [facility] [id number] [place] 14:30:00 14:30:00 t; Lesa BRYANT Ph savannah Rios M.D. 2018-07-25 2018-07-25 EUNICE [facility] [id number] [place] 10:30:00 10:30:00 t; Lesa BRITT [facility] savannah Monk M.D. 2018-07-22 2018-07-22 [facility] [id number] [place] 11:15:00 11:15:00 t; Lesa BRYANT [facility] Valery MUNOZ, Orthopedics savannah BRYANT M.D. 2018-07-15 2018-07-15 [facility] [id number] [place] 10:30:00 10:30:00 t; Lesa BRYANT [facility] Valery MUNOZ, Orthopedics savannah BRYANT M.D. 2018-07-09 2018-07-10 [facility] [id number] Memoria 18:05:00 00:00:00 Surgery r [place] 03 l [facility] 2018-07-09 2018-07-09 [facility] [id number] [place] 13:00:00 13:00:00 t; [facility] 2018-06-30 2018-06-30 [facility] [id number] [place] 10:15:00 10:15:00 t; Lesa BRYANT [facility] Valery MUNOZ, Orthopedics savannah BRYANT M.D. 2018-06-24 2018-06-24 [facility] [id number] Memoria 00:15:00 05:59:00 r Thornton 02 l [facility] 2018-06-20 2018-06-20 [facility] [id number] [place] 13:40:00 13:40:00 t; SHANE MONROE [facility] hybeatriz ROTH, Orthopedics a boyd MONROE NP 2018-06-19 2018-06-19 [facility] [id number] [place] 08:15:00 08:15:00 t; GEOVANNA HUERTA D.O. Physici KERRY, ans D.O. 2018-06-17 2018-06-17 [facility] [id number] [place] 15:45:00 15:45:00 t; Lesa BRYANT [facility] Valery MUNOZ, Orthopedics savannah BRYANT M.D. 2018-06-03 2018-06-03 Appointmen BRADLEYEUNICE Francisca [id number] [place] 13:45:00 13:45:00 t; GEOVANNA HUERTA D.O. [facility] savannah BASSETT D.O. 2018-05-16 2018-05-16 Emergency nullFlavo [facility] [id number] Memoria 10:52:00 13:34:00 r Davidson 01 l [facility] nn Results Test Description Test Time Test Comments Results Result Comments Source CHEM PANEL 2021-10-09 21:33:00 Test Item Value Reference Range Interpretation Comme nts Glucose Lvl (test code = Glucose Lvl) 114 70-99 [facility]2022-02-28 21:33:00 Test Item Value Reference Range Interpretation Comments BUN (test code = BUN) 14 7-22 [facility]2022-02-28 21:33:00 Test Item Value Reference Range Interpretation Comments Creatinine Lvl (test code = Creatinine 1.36 0.50-1.40 Lvl) [facility]2022-02-28 21:33:00 Test Item Value Reference Range Interpretation Comments Sodium Lvl (test code = Sodium Lvl) 139 135-145 [facility]2022-02-28 21:33:00 Test Item Value Reference Range Interpretation Comments Potassium Lvl (test code = Potassium 4.6 3.5-5.1 Lvl) [facility]2022-02-28 21:33:00 Test Item Value Reference Range Interpretation Comments Chloride Lvl (test code = Chloride Lvl) 104 95-109 [facility]2022-02-28 21:33:00 Test Item Value Reference Range Interpretation Comments CO2 (test code = CO2) 29 24-32 [facility]2022-02-28 21:33:00 Test Item Value Reference Range Interpretation Comments Calcium Lvl (test code = Calcium Lvl) 9.3 8.5-10.5 [facility]2022-02-28 21:33:00 Test Item Value Reference Range Interpretation Comments AGAP (test code = AGAP) 10.6 10.0-20.0 [facility]2022-02-28 21:33:00 Test Item Value Reference Range Interpretation Comments eGFR (test code = eGFR) 64 [facility]riptLMLCAWXSBS6901-20-57 21:33:00 Test Item Value Reference Range Interpretation Comments WBC (test code = WBC) 5.9 3.7-10.4 [facility] CenterLxoisdnKCOAZALKDA1012-77-72 21:33:00 Test Item Value Reference Range Interpretation Comments RBC (test code = RBC) 4.85 4.70-6.10 [facility] CenterBwfqbeoBRMXXZFARL0744-80-29 21:33:00 Test Item Value Reference Range Interpretation Comments Hgb (test code = Hgb) 13.7 14.0-18.0 [facility] CenterPqpmknlCWJLBMUJNV4833-84-27 21:33:00 Test Item Value Reference Range Interpretation Comments Hct (test code = Hct) 41.5 42.0-54.0 [facility] CenterAkqgkwaSDWSDFCOOV2587-64-95 21:33:00 Test Item Value Reference Range Interpretation Comments MCV (test code = MCV) 85.4 80.0-94.0 [facility] CenterDlssdgtBAKONYTSVU5720-01-43 21:33:00 Test Item Value Reference Range Interpretation Comments MCH (test code = MCH) 28.2 pg 27.0-31.0 [facility] CenterNamubefVSIZMEFVOT7013-09-53 21:33:00 Test Item Value Reference Range Interpretation Comments MCHC (test code = MCHC) 33.0 32.0-36.0 [facility] CenterXobqmjqPTGLBSGOFD3949-67-32 21:33:00 Test Item Value Reference Range Interpretation Comments RDW (test code = RDW) 14.0 11.5-14.5 [facility] CenterDurnlufINSVQATIED4195-48-30 21:33:00 Test Item Value Reference Range Interpretation Comments Platelet (test code = Platelet) 186 133-450 [facility] CenterOhoumqgYEMNPUPBUT5875-55-63 21:33:00 Test Item Value Reference Range Interpretation Comments MPV (test code = MPV) 9.1 7.4-10.4 [place] 020152-02-28 21:33:00 Test Item Value Reference Range Interpretation Comments PT (test code = PT) 12.4 s 12.0-14.7 [facility] CenterIqcdydnLCYGMQUZOE9524-43-50 21:33:00 Test Item Value Reference Range Interpretation Comments INR (test code = INR) 0.93 1 0.85-1.17 [facility] CenterCdoukyzEKHIQCQUWX9825-83-87 21:33:00 Test Item Value Reference Range Interpretation Comments PTT (test code = PTT) 27.8 s 22.9-35.8 [place] 020152-02-28 21:33:00 Test Item Value Reference Range Interpretation Comments Segs (test code = Segs) 73.9 45.0-75.0 [place] 020152-02-28 21:33:00 Test Item Value Reference Range Interpretation Comments Lymphocytes (test code = Lymphocytes) 18.2 20.0-40.0 [place] 020152-02-28 21:33:00 Test Item Value Reference Range Interpretation Comments Monocytes (test code = Monocytes) 3.4 2.0-12.0 [place] 020152-02-28 21:33:00 Test Item Value Reference Range Interpretation Comments Eosinophils (test code = 4.2 See_Comment [A utomated message] The Eosinophils) system which ge nerated this result tra nsmitted reference range : <=4.0. The reference r caleb was not used to int erpret this result as normal/abnormal . [place] 020152-02-28 21:33:00 Test Item Value Reference Range Interpretation Comments Basophils (test code = 0.3 See_Comment [Aut omated message] The Basophils) system which ge nerated this result tra nsmitted reference range : <=1.0. The reference r caleb was not used to int erpret this result as normal/abnormal . [facility] CenterTxgulplKTOIFTZBYN8046-76-36 21:33:00 Test Item Value Reference Range Interpretation Comments Neutrophils # (test code = Neutrophils 4.4 1.5-8.1 #) [place] 020152-02-28 21:33:00 Test Item Value Reference Range Interpretation Comments Lymphocytes # (test code = Lymphocytes 1.1 1.0-5.5 #) [place] 020152-02-28 21:33:00 Test Item Value Reference Range Interpretation Comments Monocytes # (test code 0.2 See_Comment [Aut omated message] The = Monocytes #) system which generated this result tra nsmitted reference range : <=0.8. The reference r caleb was not used to int erpret this result as normal/abnormal . [place] 020152-02-28 21:33:00 Test Item Value Reference Range Interpretation Comments Eosinophils # (test code 0.2 See_Comment [A utomated message] The = Eosinophils #) system whic h generated this result tra nsmitted reference range : <=0.5. The reference r caleb was not used to int erpret this result as normal/abnormal . [facility]2022-02-28 20:31:00 Test Item Value Reference Range Interpretation Comments Glucose CSF (test code = Glucose CSF) 77 45-80 [facility]2022-02-28 20:31:00 Test Item Value Reference Range Interpretation Comments Protein CSF (test code = Protein CSF) 33 15-45 [facility]2022-02-28 20:31:00 Test Item Value Reference Range Interpretation Comments Tube Num CSF (test xxxxxxx (10/09/21 2:31 code = Tube Num CSF) PM) [facility]2022-02-28 20:31:00 Test Item Value Reference Range Interpretation Comments Color CSF (test code Colorless (10/09/21 2:31 = Color CSF) PM) [facility]2022-02-28 20:31:00 Test Item Value Reference Range Interpretation Comments Clarity CSF (test code = Clear (10/09/21 2:31 Clarity CSF) PM) [facility] [id number] 20:31:00 Test Item Value Reference Range Interpretation Comments Supernat CSF (test Colorless (10/09/21 2:31 code = Supernat CSF) PM) [facility]2022-02-28 20:31:00 Test Item Value Reference Range Interpretation Comments Nucleated Cells CSF 9 See_Comment [Automa leydi message] The (test code = Nucleated syste m which generated Cells CSF) this result tra nsmitted reference range : <=53. The reference r caleb was not used to int erpret this result as normal/abnormal . [facility] KKXRSO3717-43-55 20:31:00 Test Item Value Reference Range Interpretation Comments RBC CSF (test code = 280 See_Comment [Autom ated message] The RBC CSF) system which ge nerated this result transmit leydi reference range : <=03. The reference range was not used to interpr et this result as krishna l/abnormal. [facility] [id number] 20:31:00 Test Item Value Reference Range Interpretation Comments Neutrophils CSF (test 64 See_Comment [Auto mated message] The code = Neutrophils CSF) syst em which generated this result tra nsmitted reference range : <=6. The reference r caleb was not used to int erpret this result as normal/abnormal . [facility] [id number] 20:31:00 Test Item Value Reference Range Interpretation Comments Lymph CSF (test code = Lymph CSF) 30 40-80 [facility] [id number] 20:31:00 Test Item Value Reference Range Interpretation Comments Monocyte CSF (test code = Monocyte CSF) 6 15-45 [facility] Xwnkqxqid4015-70-67 20:31:00 Test Item Value Reference Range Interpretation Comments Culture: Anaerobic No Anaerobes Isolated (test code = Culture: After 3 Days Anaerobic) [facility] Stain Brdtgr8411-58-02 20:31:00 Test Item Value Reference Range Interpretation Comments Gram Stain Report Few Wbc'S; No Organisms (test code = Gram Seen Stain Report) [facility] w/Gram Obltw5630-54-79 20:31:00 Test Item Value Reference Range Interpretation Comments Culture: CSF w/Gram 72 Hour Report - No Stain (test code = Growth, Holding Culture: CSF w/Gram Stain) [facility] [id number] 08:57:00 Test Item Value Reference Range Interpretation Comments Glucose Lvl (test code = Glucose Lvl) 109 70-99 [facility] [id number] 08:57:00 Test Item Value Reference Range Interpretation Comments BUN (test code = BUN) 17 7-22 [facility]2022-02-28 08:57:00 Test Item Value Reference Range Interpretation Comments Creatinine Lvl (test code = Creatinine 1.28 0.50-1.40 Lvl) [facility] OOOCI1624-38-26 08:57:00 Test Item Value Reference Range Interpretation Comments Sodium Lvl (test code = Sodium Lvl) 140 135-145 [facility] [id number] 08:57:00 Test Item Value Reference Range Interpretation Comments Potassium Lvl (test code = Potassium 3.9 3.5-5.1 Lvl) [facility] [id number] 08:57:00 Test Item Value Reference Range Interpretation Comments Chloride Lvl (test code = Chloride Lvl) 108 95-109 [facility] [id number] 08:57:00 Test Item Value Reference Range Interpretation Comments CO2 (test code = CO2) 27 24-32 [place] 668242-02-28 08:57:00 Test Item Value Reference Range Interpretation Comments Calcium Lvl (test code = Calcium Lvl) 9.5 8.5-10.5 [place] 668242-02-28 08:57:00 Test Item Value Reference Range Interpretation Comments AGAP (test code = AGAP) 8.9 10.0-20.0 [place] 668242-02-28 08:57:00 Test Item Value Reference Range Interpretation Comments eGFR (test code = eGFR) 69 [facility] CenterKtmdhrwJWQVMFJAPE2179-35-48 08:57:00 Test Item Value Reference Range Interpretation Comments WBC (test code = WBC) 8.5 3.7-10.4 [place] 020152-02-28 08:57:00 Test Item Value Reference Range Interpretation Comments RBC (test code = RBC) 4.69 4.70-6.10 [place] 020152-02-28 08:57:00 Test Item Value Reference Range Interpretation Comments Hgb (test code = Hgb) 13.3 14.0-18.0 [place] 020152-02-28 08:57:00 Test Item Value Reference Range Interpretation Comments Hct (test code = Hct) 40.4 42.0-54.0 [place] 020152-02-28 08:57:00 Test Item Value Reference Range Interpretation Comments MCV (test code = MCV) 86.1 80.0-94.0 [place] 020152-02-28 08:57:00 Test Item Value Reference Range Interpretation Comments MCH (test code = MCH) 28.3 pg 27.0-31.0 [place] 020152-02-28 08:57:00 Test Item Value Reference Range Interpretation Comments MCHC (test code = MCHC) 32.9 32.0-36.0 [place] 020152-02-28 08:57:00 Test Item Value Reference Range Interpretation Comments RDW (test code = RDW) 14.1 11.5-14.5 [place] 020152-02-28 08:57:00 Test Item Value Reference Range Interpretation Comments Platelet (test code = Platelet) 192 133-450 [place] 75326-02-28 08:57:00 Test Item Value Reference Range Interpretation Comments MPV (test code = MPV) 9.2 7.4-10.4 [place] 75[address]-02-28 08:57:00 Test Item Value Reference Range Interpretation Comments R-time (test code = R-time) 6.0 min 5.0-10.0 [place] 75[address]-02-28 08:57:00 Test Item Value Reference Range Interpretation Comments K-time (test code = K-time) 1.4 min 1.0-3.0 [place] 75[address]-02-28 08:57:00 Test Item Value Reference Range Interpretation Comments Angle (test code = Angle) 69.7 degrees 53.0-72.0 [place] [address]-02-28 08:57:00 Test Item Value Reference Range Interpretation Comments Max Amp (test code = Max Amp) 66.3 mm 50.0-70.0 [place] [address]-02-28 08:57:00 Test Item Value Reference Range Interpretation Comments G-value (test code = G-value) 9.8 4.5-11.0 [place] [address]-02-28 08:57:00 Test Item Value Reference Range Interpretation Comments Ly30 (test code = 0.6 See_Comment [Automate d message] The Ly30) system which ge nerated this result transmit leydi reference range : <=7.5. The reference range was not used to interpr et this result as krishna l/abnormal. [place] 020152-02-28 08:57:00 Test Item Value Reference Range Interpretation Comments Coag Index (test code 1.2 1 See_Comment [Auto mated message] The = Coag Index) system which g enerated this result transmit leydi reference range : <=3.0. The reference range was not used to interpr et this result as krishna l/abnormal. [place] 020152-02-28 08:57:00 Test Item Value Reference Range Interpretation Comments TEG Data (test code = See Note (10/09/21 2:57 TEG Data) AM) [place] [address]-02-28 08:57:00 Test Item Value Reference Range Interpretation Comments PT (test code = PT) 12.1 s 12.0-14.7 [place] 020152-02-28 08:57:00 Test Item Value Reference Range Interpretation Comments INR (test code = INR) 0.90 1 0.85-1.17 [place] 020152-02-28 08:57:00 Test Item Value Reference Range Interpretation Comments PTT (test code = PTT) 27.6 s 22.9-35.8 [place] 020152-02-28 08:57:00 Test Item Value Reference Range Interpretation Comments Segs (test code = Segs) 52.0 45.0-75.0 [place] [address]-02-28 08:57:00 Test Item Value Reference Range Interpretation Comments Lymphocytes (test code = Lymphocytes) 33.8 20.0-40.0 [place] [address]-02-28 08:57:00 Test Item Value Reference Range Interpretation Comments Monocytes (test code = Monocytes) 8.0 2.0-12.0 [place] 020152-02-28 08:57:00 Test Item Value Reference Range Interpretation Comments Eosinophils (test code = 5.8 See_Comment [A utomated message] The Eosinophils) system which ge nerated this result tra nsmitted reference range : <=4.0. The reference r caleb was not used to int erpret this result as normal/abnormal . [place] 020152-02-28 08:57:00 Test Item Value Reference Range Interpretation Comments Basophils (test code = 0.4 See_Comment [Aut omated message] The Basophils) system which ge nerated this result tra nsmitted reference range : <=1.0. The reference r caleb was not used to int erpret this result as normal/abnormal . [place] 020152-02-28 08:57:00 Test Item Value Reference Range Interpretation Comments Neutrophils # (test code = Neutrophils 4.4 1.5-8.1 #) [place] 020152-02-28 08:57:00 Test Item Value Reference Range Interpretation Comments Lymphocytes # (test code = Lymphocytes 2.9 1.0-5.5 #) [place] 020152-02-28 08:57:00 Test Item Value Reference Range Interpretation Comments Monocytes # (test code 0.7 See_Comment [Aut omated message] The = Monocytes #) system which generated this result tra nsmitted reference range : <=0.8. The reference r caleb was not used to int erpret this result as normal/abnormal . [place] 020152-02-28 08:57:00 Test Item Value Reference Range Interpretation Comments Eosinophils # (test code 0.5 See_Comment [A utomated message] The = Eosinophils #) system whic h generated this result tra nsmitted reference range : <=0.5. The reference r caleb was not used to int erpret this result as normal/abnormal . [place] 020152-02-28 08:57:00 Test Item Value Reference Range Interpretation Comments TEG Interp (test Thrombelastograph results code = TEG are within reference ranges. Interp) Note that TEG does not show effect of NSAIDs or P2Y12 inhibitors. CPT:66431 [place] 668242-02-28 02:07:26 Test Item Value Reference Range Interpretation Comments Glucose Lvl (test code = Glucose Lvl) 95 70-99 [place] 668242-02-28 02:07:26 Test Item Value Reference Range Interpretation Comments BUN (test code = BUN) 13 7-22 [place] 668242-02-28 02:07:26 Test Item Value Reference Range Interpretation Comments Creatinine Lvl (test code = Creatinine 1.24 0.50-1.40 Lvl) [place] 668242-02-28 02:07:26 Test Item Value Reference Range Interpretation Comments Sodium Lvl (test code = Sodium Lvl) 140 135-145 [place] 668242-02-28 02:07:26 Test Item Value Reference Range Interpretation Comments Potassium Lvl (test code = Potassium 3.7 3.5-5.1 Lvl) [place] 668242-02-28 02:07:26 Test Item Value Reference Range Interpretation Comments Chloride Lvl (test code = Chloride Lvl) 106 95-109 [place] 668242-02-28 02:07:26 Test Item Value Reference Range Interpretation Comments CO2 (test code = CO2) 30 24-32 [place] 668242-02-28 02:07:26 Test Item Value Reference Range Interpretation Comments Calcium Lvl (test code = Calcium Lvl) 9.5 8.5-10.5 [facility]2022-02-28 02:07:26 Test Item Value Reference Range Interpretation Comments AGAP (test code = AGAP) 7.7 10.0-20.0 [facility]2022-02-28 02:07:26 Test Item Value Reference Range Interpretation Comments eGFR (test code = eGFR) 72 [facility]sn[facility]LEESILQPFT6781[facility]74[facility]46 02:07:26 Test Item Value Reference Range Interpretation Comments WBC X 10x3 (test code = WBC X 10x3) 7.4 3.7-10.4 [place] 020152-02-28 02:07:26 Test Item Value Reference Range Interpretation Comments RBC X 10x6 (test code = RBC X 10x6) 5.06 4.70-6.10 [place] 020152-02-28 02:07:26 Test Item Value Reference Range Interpretation Comments Hgb (test code = Hgb) 14.0 14.0-18.0 [place] 020152-02-28 02:07:26 Test Item Value Reference Range Interpretation Comments Hct (test code = Hct) 43.5 42.0-54.0 [facility]BpyuxnvTVMAYXXAWZ3582-51-33 02:07:26 Test Item Value Reference Range Interpretation Comments MCV (test code = MCV) 85.9 80.0-94.0 [place] 020152-02-28 02:07:26 Test Item Value Reference Range Interpretation Comments MCH (test code = MCH) 27.7 pg 27.0-31.0 [facility] CenterYcefslzTGJAGRRRHC9164-55-75 02:07:26 Test Item Value Reference Range Interpretation Comments MCHC (test code = MCHC) 32.3 32.0-36.0 [place] 020152-02-28 02:07:26 Test Item Value Reference Range Interpretation Comments RDW (test code = RDW) 13.9 11.5-14.5 [place] 020152-02-28 02:07:26 Test Item Value Reference Range Interpretation Comments Platelet (test code = Platelet) 192 133-450 [place] 020152-02-28 02:07:26 Test Item Value Reference Range Interpretation Comments MPV (test code = MPV) 9.1 7.4-10.4 [place] 020152-02-28 02:07:26 Test Item Value Reference Range Interpretation Comments ACT (TEG) Rapid (test code = ACT (TEG) 128 s 86-118 Rapid) [place] 020152-02-28 02:07:26 Test Item Value Reference Range Interpretation Comments Split Point Rapid (test code = Split 0.7 min Point Rapid) [place] 020152-02-28 02:07:26 Test Item Value Reference Range Interpretation Comments R-time Rapid (test code = R-time 0.8 min 0.4-0.7 Rapid) [place] 020152-02-28 02:07:26 Test Item Value Reference Range Interpretation Comments K-time Rapid (test code = K-time 1.1 min 0.6-2.3 Rapid) [address]02-28 02:07:26 Test Item Value Reference Range Interpretation Comments Angle Rapid (test code = Angle 76 degrees 64-80 Rapid) [place] [address]-02-28 02:07:26 Test Item Value Reference Range Interpretation Comments Max Amplitude Rapid (test code = Max 71 mm 52-71 Amplitude Rapid) [place] [address]-02-28 02:07:26 Test Item Value Reference Range Interpretation Comments G-value Rapid (test code = G-value 12.1 5.0-11.6 Rapid) [place] [address]-02-28 02:07:26 Test Item Value Reference Range Interpretation Comments Estimated % Lysis Rapid 0.8 See_Comment [Au tomated message] The (test code = Estimated syste m which generated % Lysis Rapid) this result t ransmitted reference range : <=7.5. The reference r caleb was not used to int erpret this result as normal/abnormal . [place] 020152-02-28 02:07:26 Test Item Value Reference Range Interpretation Comments PT (test code = PT) 12.5 s 12.0-14.7 [place] [address]-02-28 02:07:26 Test Item Value Reference Range Interpretation Comments INR (test code = INR) 0.94 1 0.85-1.17 [place] [address]-02-28 02:07:26 Test Item Value Reference Range Interpretation Comments PTT (test code = PTT) 29.6 s 22.9-35.8 [place] 020152-02-28 02:07:26 Test Item Value Reference Range Interpretation Comments Segs (test code = Segs) 57.2 45.0-75.0 [place] 020152-02-28 02:07:26 Test Item Value Reference Range Interpretation Comments Lymphocytes (test code = Lymphocytes) 30.9 20.0-40.0 [place] 020152-02-28 02:07:26 Test Item Value Reference Range Interpretation Comments Monocytes (test code = Monocytes) 5.6 2.0-12.0 [place] 020152-02-28 02:07:26 Test Item Value Reference Range Interpretation Comments Eosinophils (test code = 5.6 See_Comment [A utomated message] The Eosinophils) system which ge nerated this result tra nsmitted reference range : <=4.0. The reference r caleb was not used to int erpret this result as normal/abnormal . [place] 020152-02-28 02:07:26 Test Item Value Reference Range Interpretation Comments Basophils (test code = 0.7 See_Comment [Aut omated message] The Basophils) system which ge nerated this result tra nsmitted reference range : <=1.0. The reference r caleb was not used to int erpret this result as normal/abnormal . [facility] CenterVrmonsySKKKLQBMKP8353-89-26 02:07:26 Test Item Value Reference Range Interpretation Comments Neutrophils # (test code = Neutrophils 4.3 1.5-8.1 #) [place] 020152-02-28 02:07:26 Test Item Value Reference Range Interpretation Comments Lymphocytes # (test code = Lymphocytes 2.3 1.0-5.5 #) [place] 020152-02-28 02:07:26 Test Item Value Reference Range Interpretation Comments Monocytes # (test code 0.4 See_Comment [Aut omated message] The = Monocytes #) system which generated this result tra nsmitted reference range : <=0.8. The reference r caleb was not used to int erpret this result as normal/abnormal . [place] 020152-02-28 02:07:26 Test Item Value Reference Range Interpretation Comments Eosinophils # (test code 0.4 See_Comment [A utomated message] The = Eosinophils #) system whic h generated this result tra nsmitted reference range : <=0.5. The reference r caleb was not used to int erpret this result as normal/abnormal . [facility] HhcvjixJFTONQAUDG0711-97-40 02:07:26 Test Item Value Reference Range Interpretation Comments Coronavirus (COVID-19) Not Detected (10/08/21 LIZBETH (test code = 8:07 PM) Coronavirus (COVID-19) LIZBETH) [facility] [employer] [id number] 01:55:00 Test Item Value Reference Range Interpretation Comments ABO/Rh (test code = ABO/Rh) O POS [facility] [employer] [id number] 01:55:00 Test Item Value Reference Range Interpretation Comments Antibody Scrn (test Negative (10/08/21 7:55 code = Antibody Scrn) PM) [facility] [employer] [id number] 19:46:00 Test Item Value Reference Range Interpretation Comments Glucose Lvl (test code = Glucose Lvl) 133 70-99 [facility] [employer] [id number] 19:46:00 Test Item Value Reference Range Interpretation Comments BUN (test code = BUN) 14 03-02 [facility] [employer] [id number] 19:46:00 Test Item Value Reference Range Interpretation Comments Creatinine Lvl (test code = Creatinine 1.22 0.50-1.40 Lvl) [facility] [employer] [id number] 19:46:00 Test Item Value Reference Range Interpretation Comments Sodium Lvl (test code = Sodium Lvl) 138 135-145 [facility] [employer] [id number] 19:46:00 Test Item Value Reference Range Interpretation Comments Potassium Lvl (test code = Potassium 4.1 3.5-5.1 Lvl) [facility]2022-02-22 19:46:00 Test Item Value Reference Range Interpretation Comments Chloride Lvl (test code = Chloride Lvl) 108 95-109 [facility] [employer] [id number] 19:46:00 Test Item Value Reference Range Interpretation Comments CO2 (test code = CO2) 26 -32 [facility] [employer] [id number] 19:46:00 Test Item Value Reference Range Interpretation Comments Calcium Lvl (test code = Calcium Lvl) 8.6 8.5-10.5 [facility]2022-02-22 19:46:00 Test Item Value Reference Range Interpretation Comments AGAP (test code = AGAP) 8.1 10.0-20.0 [facility] [id number] 19:46:00 Test Item Value Reference Range Interpretation Comments eGFR (test code = eGFR) 73 [place] 020152-02-22 19:46:00 Test Item Value Reference Range Interpretation Comments WBC (test code = WBC) 6.2 3.7-10.4 [place] 020152-02-22 19:46:00 Test Item Value Reference Range Interpretation Comments RBC (test code = RBC) 4.91 4.70-6.10 [place] 020152-02-22 19:46:00 Test Item Value Reference Range Interpretation Comments Hgb (test code = Hgb) 13.7 14.0-18.0 [place] 020152-02-22 19:46:00 Test Item Value Reference Range Interpretation Comments Hct (test code = Hct) 42.1 42.0-54.0 [place] 020152-02-22 19:46:00 Test Item Value Reference Range Interpretation Comments MCV (test code = MCV) 85.8 80.0-94.0 [place] 020152-02-22 19:46:00 Test Item Value Reference Range Interpretation Comments MCH (test code = MCH) 27.9 pg 27.0-31.0 [facility] CenterDghsaiiMXDXVSIQKW6245-25-21 19:46:00 Test Item Value Reference Range Interpretation Comments MCHC (test code = MCHC) 32.6 32.0-36.0 [place] 020152-02-22 19:46:00 Test Item Value Reference Range Interpretation Comments RDW (test code = RDW) 14.3 11.5-14.5 [place] 020152-02-22 19:46:00 Test Item Value Reference Range Interpretation Comments Platelet (test code = Platelet) 153 133-450 [facility] CenterZewtxdqEJPJXCXSCY4043-12-87 19:46:00 Test Item Value Reference Range Interpretation Comments MPV (test code = MPV) 9.5 7.4-10.4 [place] 020152-02-22 19:46:00 Test Item Value Reference Range Interpretation Comments PT (test code = PT) 12.2 s 12.0-14.7 [place] 020152-02-22 19:46:00 Test Item Value Reference Range Interpretation Comments INR (test code = INR) 0.91 1 0.85-1.17 [place] 020152-02-22 19:46:00 Test Item Value Reference Range Interpretation Comments PTT (test code = PTT) 27.1 s 22.9-35.8 [place] 020152-02-22 19:46:00 Test Item Value Reference Range Interpretation Comments Plt Morph (test code = Normal (10/03/21 1:46 Plt Morph) PM) [place] 020152-02-22 19:46:00 Test Item Value Reference Range Interpretation Comments Segs (test code = Segs) 83.7 45.0-75.0 [place] 020152-02-22 19:46:00 Test Item Value Reference Range Interpretation Comments Lymphocytes (test code = Lymphocytes) 12.3 20.0-40.0 [place] 020152-02-22 19:46:00 Test Item Value Reference Range Interpretation Comments Monocytes (test code = Monocytes) 1.6 2.0-12.0 [place] 020152-02-22 19:46:00 Test Item Value Reference Range Interpretation Comments Eosinophils (test code = 2.0 See_Comment [A utomated message] The Eosinophils) system which ge nerated this result tra nsmitted reference range : <=4.0. The reference r caleb was not used to int erpret this result as normal/abnormal . [facility] CenterFdjsfbcHLMKBCUHDD2783-66-97 19:46:00 Test Item Value Reference Range Interpretation Comments Basophils (test code = 0.4 See_Comment [Aut omated message] The Basophils) system which ge nerated this result tra nsmitted reference range : <=1.0. The reference r caleb was not used to int erpret this result as normal/abnormal . [place] 020152-02-22 19:46:00 Test Item Value Reference Range Interpretation Comments Neutrophils # (test code = Neutrophils 5.2 1.5-8.1 #) [place] 020152-02-22 19:46:00 Test Item Value Reference Range Interpretation Comments Lymphocytes # (test code = Lymphocytes 0.8 1.0-5.5 #) [facility] CenterIzxixujQNLUSMKBJJ6006-55-96 19:46:00 Test Item Value Reference Range Interpretation Comments Monocytes # (test code 0.1 See_Comment [Aut omated message] The = Monocytes #) system which generated this result tra nsmitted reference range : <=0.8. The reference r caleb was not used to int erpret this result as normal/abnormal . [facility] CenterKnftopjKVDWXXZXEM5576-55-23 19:46:00 Test Item Value Reference Range Interpretation Comments Eosinophils # (test code 0.1 See_Comment [A utomated message] The = Eosinophils #) system whic h generated this result tra nsmitted reference range : <=0.5. The reference r caleb was not used to int erpret this result as normal/abnormal . [facility] [id number] 17:31:00 Test Item Value Reference Range Interpretation Comments ABO/Rh (test code = ABO/Rh) O POS [facility] [id number] 17:31:00 Test Item Value Reference Range Interpretation Comments Antibody Scrn (test Negative (10/02/21 code = Antibody Scrn) 11:31 AM[facility] [id number] 17:31:00 Test Item Value Reference Range Interpretation Comments Glucose Lvl (test code = Glucose Lvl) 92 70-99 [facility] [id number] 17:31:00 Test Item Value Reference Range Interpretation Comments BUN (test code = BUN) 17 7-22 [facility] [id number] 17:31:00 Test Item Value Reference Range Interpretation Comments Creatinine Lvl (test code = Creatinine 1.21 0.50-1.40 Lvl) [facility] [id number] 17:31:00 Test Item Value Reference Range Interpretation Comments Sodium Lvl (test code = Sodium Lvl) 140 135-145 [facility] [employer] [id number] 17:31:00 Test Item Value Reference Range Interpretation Comments Potassium Lvl (test code = Potassium 4.2 3.5-5.1 Lvl) [facility] [id number] 17:31:00 Test Item Value Reference Range Interpretation Comments Chloride Lvl (test code = Chloride Lvl) 108 95-109 [place] 668242-02-21 17:31:00 Test Item Value Reference Range Interpretation Comments CO2 (test code = CO2) 26 24-32 [place] [address]-02-21 17:31:00 Test Item Value Reference Range Interpretation Comments Calcium Lvl (test code = Calcium Lvl) 9.4 8.5-10.5 [place] 668242-02-21 17:31:00 Test Item Value Reference Range Interpretation Comments AGAP (test code = AGAP) 10.2 10.0-20.0 [place] 668242-02-21 17:31:00 Test Item Value Reference Range Interpretation Comments eGFR (test code = eGFR) 74 [place] 020152-02-21 17:31:00 Test Item Value Reference Range Interpretation Comments PTT (test code = PTT) 28.1 s 22.9-35.8 [place] [address]-02-21 17:31:00 Test Item Value Reference Range Interpretation Comments PT (test code = PT) 11.8 s 12.0-14.7 [place] [address]-02-21 17:31:00 Test Item Value Reference Range Interpretation Comments INR (test code = INR) 0.87 1 0.85-1.17 [place] [address]-02-21 17:31:00 Test Item Value Reference Range Interpretation Comments WBC (test code = WBC) 5.4 3.7-10.4 [place] [address]-02-21 17:31:00 Test Item Value Reference Range Interpretation Comments RBC (test code = RBC) 4.90 4.70-6.10 [place] [address]-02-21 17:31:00 Test Item Value Reference Range Interpretation Comments Hgb (test code = Hgb) 13.7 14.0-18.0 [place] [address]-02-21 17:31:00 Test Item Value Reference Range Interpretation Comments Hct (test code = Hct) 42.0 42.0-54.0 [place] [address]-02-21 17:31:00 Test Item Value Reference Range Interpretation Comments MCV (test code = MCV) 85.6 80.0-94.0 [place] [address]-02-21 17:31:00 Test Item Value Reference Range Interpretation Comments MCH (test code = MCH) 27.9 pg 27.0-31.0 [facility] CenterQtvtoxdRBWLAUMVZL1086-50-39 17:31:00 Test Item Value Reference Range Interpretation Comments MCHC (test code = MCHC) 32.6 32.0-36.0 [facility] CenterJebwahnDJWGRLABKV9635-93-97 17:31:00 Test Item Value Reference Range Interpretation Comments RDW (test code = RDW) 14.1 11.5-14.5 [facility] CenterInokuyuPEEPKOVGQY0465-11-81 17:31:00 Test Item Value Reference Range Interpretation Comments Platelet (test code = Platelet) 173 133-450 [facility] CenterEfswwzsYACJFKLXJN6590-67-86 17:31:00 Test Item Value Reference Range Interpretation Comments MPV (test code = MPV) 10.1 7.4-10.4 [place] 020152-02-21 17:31:00 Test Item Value Reference Range Interpretation Comments Segs (test code = Segs) 54.1 45.0-75.0 [facility] CenterBokvsqyMFKJROKOVI7341-25-30 17:31:00 Test Item Value Reference Range Interpretation Comments Lymphocytes (test code = Lymphocytes) 30.9 20.0-40.0 [facility] CenterDifuukzJGMLXYCOSS2786-23-35 17:31:00 Test Item Value Reference Range Interpretation Comments Monocytes (test code = Monocytes) 6.7 2.0-12.0 [facility] CenterOnrsxosMVVJPVOGWF8259-25-77 17:31:00 Test Item Value Reference Range Interpretation Comments Eosinophils (test code = 7.7 See_Comment [A utomated message] The Eosinophils) system which ge nerated this result tra nsmitted reference range : <=4.0. The reference r caleb was not used to int erpret this result as normal/abnormal . [facility] CenterPijmcjcJHSCAAKMVC2957-36-49 17:31:00 Test Item Value Reference Range Interpretation Comments Basophils (test code = 0.6 See_Comment [Aut omated message] The Basophils) system which ge nerated this result tra nsmitted reference range : <=1.0. The reference r caleb was not used to int erpret this result as normal/abnormal . [facility] CenterAdiejdgJKHDWNMNXH8877-36-80 17:31:00 Test Item Value Reference Range Interpretation Comments Neutrophils # (test code = Neutrophils 2.9 1.5-8.1 #) [place] 020152-02-21 17:31:00 Test Item Value Reference Range Interpretation Comments Lymphocytes # (test code = Lymphocytes 1.7 1.0-5.5 #) [facility] CenterWdhgkboEBYDEGTFCG2842-05-58 17:31:00 Test Item Value Reference Range Interpretation Comments Monocytes # (test code 0.4 See_Comment [Aut omated message] The = Monocytes #) system which generated this result tra nsmitted reference range : <=0.8. The reference r caleb was not used to int erpret this result as normal/abnormal . [facility] CenterFxcapifDPORDDIVFA3870-07-13 17:31:00 Test Item Value Reference Range Interpretation Comments Eosinophils # (test code 0.4 See_Comment [A utomated message] The = Eosinophils #) system whic h generated this result tra nsmitted reference range : <=0.5. The reference r caleb was not used to int erpret this result as normal/abnormal . [facility] HospitalIyvnedsGAPJMDXFJH4510-01-19 17:31:00 Test Item Value Reference Range Interpretation Comments Coronavirus (COVID-19) Not Detected (10/02/21 LIZBETH (test code = 11:31 AM) Coronavirus (COVID-19) LIZBETH) [facility] [id number] 17:31:00 Test Item Value Reference Range Interpretation Comments Hgb A1C (test code = Hgb A1C) 5.7 [facility] CenterOtywqszHMZUIBMDQW1287-86-27 07:37:00 Test Item Value Reference Range Interpretation Comments Sed Rate (test code = 2 See_Comment [Auto mated message] The Sed Rate) system which ge nerated this result transmit leydi reference range : <=15. The reference range was not used to interpr et this result as krishna l/abnormal. [facility] HospitalLzskaesMCFYERDXQY9668-85-81 07:37:00 Test Item Value Reference Range Interpretation Comments C-REACTIVE PROTEIN (test code = 8.4 C-REACTIVE PROTEIN) [facility] CenterCnmpiodMSUJJTECHF7443-56-69 01:10:00 Test Item Value Reference Range Interpretation Comments Lymphocytes (test code = Lymphocytes) 37.9 20.0-40.0 [facility] CenterYyweiasFDPBJODIIE0902-30-79 01:10:00 Test Item Value Reference Range Interpretation Comments Monocytes (test code = Monocytes) 7.0 2.0-12.0 [place] 020151-09-30 01:10:00 Test Item Value Reference Range Interpretation Comments Eosinophils (test code = 11.6 See_Comment [A utomated message] The Eosinophils) system which ge nerated this result tra nsmitted reference range : <=4.0. The reference r caleb was not used to int erpret this result as normal/abnormal . [place] 020151-09-30 01:10:00 Test Item Value Reference Range Interpretation Comments Basophils (test code = 1.3 See_Comment [Aut omated message] The Basophils) system which ge nerated this result tra nsmitted reference range : <=1.0. The reference r caleb was not used to int erpret this result as normal/abnormal . [place] 020151-09-30 01:10:00 Test Item Value Reference Range Interpretation Comments Neutrophils # (test code = Neutrophils 2.5 1.5-8.1 #) [place] 020151-09-30 01:10:00 Test Item Value Reference Range Interpretation Comments Lymphocytes # (test code = Lymphocytes 2.2 1.0-5.5 #) [place] 020151-09-30 01:10:00 Test Item Value Reference Range Interpretation Comments Monocytes # (test code 0.4 See_Comment [Aut omated message] The = Monocytes #) system which generated this result tra nsmitted reference range : <=0.8. The reference r caleb was not used to int erpret this result as normal/abnormal . [facility] CenterZgqeuvbCAULJAOOVG6658-55-35 01:10:00 Test Item Value Reference Range Interpretation Comments Eosinophils # (test code 0.7 See_Comment [A utomated message] The = Eosinophils #) system whic h generated this result tra nsmitted reference range : <=0.5. The reference r caleb was not used to int erpret this result as normal/abnormal . [place] 020151-09-30 01:10:00 Test Item Value Reference Range Interpretation Comments Basophils # (test code 0.1 See_Comment [Aut omated message] The = Basophils #) system which generated this result tra nsmitted reference range : <=0.2. The reference r caleb was not used to int erpret this result as normal/abnormal . [facility]2021-09-30 01:10:00 Test Item Value Reference Range Interpretation Comments Glucose Lvl (test code = Glucose Lvl) 115 70-99 [place] 668241-09-30 01:10:00 Test Item Value Reference Range Interpretation Comments BUN (test code = BUN) 13 7-22 [place] 668241-09-30 01:10:00 Test Item Value Reference Range Interpretation Comments Creatinine Lvl (test code = Creatinine 1.21 0.50-1.40 Lvl) [place] 668241-09-30 01:10:00 Test Item Value Reference Range Interpretation Comments Sodium Lvl (test code = Sodium Lvl) 141 135-145 [place] 668241-09-30 01:10:00 Test Item Value Reference Range Interpretation Comments Potassium Lvl (test code = Potassium 3.8 3.5-5.1 Lvl) [place] 668241-09-30 01:10:00 Test Item Value Reference Range Interpretation Comments Chloride Lvl (test code = Chloride Lvl) 110 95-109 [place] 668241-09-30 01:10:00 Test Item Value Reference Range Interpretation Comments CO2 (test code = CO2) 25 24-32 [place] 668241-09-30 01:10:00 Test Item Value Reference Range Interpretation Comments Calcium Lvl (test code = Calcium Lvl) 9.1 8.5-10.5 [place] 668241-09-30 01:10:00 Test Item Value Reference Range Interpretation Comments AGAP (test code = AGAP) 9.8 10.0-20.0 [place] 668241-09-30 01:10:00 Test Item Value Reference Range Interpretation Comments eGFR (test code = eGFR) 74 [place] 020151-09-30 01:10:00 Test Item Value Reference Range Interpretation Comments WBC X 10x3 (test code = WBC X 10x3) 5.9 3.7-10.4 [place] 020151-09-30 01:10:00 Test Item Value Reference Range Interpretation Comments RBC X 10x6 (test code = RBC X 10x6) 4.92 4.70-6.10 [place] 020151-09-30 01:10:00 Test Item Value Reference Range Interpretation Comments Hgb (test code = Hgb) 13.8 14.0-18.0 [facility] CenterHljepdqSMJHOGDLID0588-05-61 01:10:00 Test Item Value Reference Range Interpretation Comments Hct (test code = Hct) 41.8 42.0-54.0 [facility] CenterWiegylgUWRHRHDFFJ0498-82-22 01:10:00 Test Item Value Reference Range Interpretation Comments MCV (test code = MCV) 84.9 80.0-94.0 [facility] CenterSeepbtkJXQWBYYLIR8706-94-95 01:10:00 Test Item Value Reference Range Interpretation Comments MCH (test code = MCH) 28.0 pg 27.0-31.0 [id number] 01:10:00 Test Item Value Reference Range Interpretation Comments MCHC (test code = MCHC) 33.0 32.0-36.0 [id number] 01:10:00 Test Item Value Reference Range Interpretation Comments RDW (test code = RDW) 14.0 11.5-14.5 [facility] [id number] 01:10:00 Test Item Value Reference Range Interpretation Comments Platelet (test code = Platelet) 171 133-450 [facility] [id number] 01:10:00 Test Item Value Reference Range Interpretation Comments MPV (test code = MPV) 8.8 7.4-10.4 [facility] [id number] 01:10:00 Test Item Value Reference Range Interpretation Comments Segs (test code = Segs) 42.2 45.0-75.0 [facility]2018-11-27 18:20:00 Test Item Value Reference Range Interpretation Comments eGFR (test code = eGFR) 90 [facility]2018-11-27 18:20:00 Test Item [...] (test code = Creatinine 1.18 0.50-1.40 Lvl) [facility][U] XRAY ELBOW 2 VWS RIGHT [id number] 15:57:00Images acquired, not reported on this accession number.[facility][U] XRAY WRIST MIN 3 VWS RIGHT [id number] 15:57:00Images acquired, not reported on this accession number.[facility]
[2022-09-07] MEDS ORDERED: NA CHLORIDE 0.9% 1,000 ML ONE (20:04)
[2022-09-07] MEDS ORDERED: dexAMETHasone 10 MG/ML VIAL ONE (20:04)
[2022-09-07] MEDS ORDERED: KETOROLAC 30 MG/ML INJ ONE (20:05)
[2022-09-07] MEDS ORDERED: METOCLOPRAMIDE 10 MG/2mL INJ ONE (20:05)
[2022-09-07] MEDS ORDERED: DIPHENHYDRAMINE 50 MG/ML VIAL ONE (20:05)
[2022-09-07 20:33] LABS: Hematocrit 41.1 % (39.6-49.0); Lymphocytes % 35.9 % (15.3-44.8); MCV 84.8 fL (80-100); MPV 9.1 fL (7.6-11.3); RBC Red Blood Cell Count 4.85 M/uL (4.33-5.43)
[2022-09-07 20:47] LABS: Potassium 3.8 mmol/L (3.5-5.1)
[2022-09-07] MEDS ORDERED: MAGNES/ALUMIN/SIMET 30ML UCUP ONE (20:58)
[2022-09-07] MEDS ORDERED: LIDOCAINE VISCOUS 2% SOLN 15 ML UDC ONE (20:58)
--- NOTE | 2022-09-07 21:00 | EDPHYS ---
Physician Documentation [facility] Name: Terry Akins Sr Age: 42 yrs Sex: Male : 1980 Arrival Date: 09/07/2022 Time: 19:12 Bed 10 Private MD: ED Physician Mathieu Orellana HPI: 09/07 21:00 This 42 yrs old Black Male presents to ER via Ambulatory with complaints of Headache, ms3 Bleeding From Ear. 21:00 42-year-old male with past medical history of hypertension, migraines, CSF leak ms3 presents for left ear bleeding for 8 days. Patient states discomfort is 10/10 described as pressure. Patient endorses nausea. Patient denies fevers, chills, vomiting. Patient states this is an ongoing problem for 3 years.. Historical: - Allergies: 19:24 No Known Allergies; lg3 - Home Meds: 19:24 lisinopril 40 mg oral tab once daily [Active]; pantoprazole oral [Active]; Omeprazole lg3 Oral [Active]; Topamax Oral [Active]; - PMHx: 19:24 Hypertensive disorder; Migraine; lg3 - PSHx: 19:24 Appendectomy; carpal tunnel right; hernia; left hand tendonitis; Nerve transplantion; lg3 shunt; - Immunization history:: Adult Immunizations up to date, Client reports receiving the 2nd dose of the Covid vaccine, Flu vaccine is up to date. - Social history:: Smoking status: Patient/guardian denies using tobacco, Stopped _ months ago 1 Patient uses alcohol, occasionally. Patient/guardian denies using street drugs. ROS: 21:00 Constitutional: Negative for fever, and chills. ms3 21:00 Neck: Negative for injury, pain, and swelling, MS/Extremity: Negative for injury and deformity, Skin: Negative for injury, rash, and discoloration. 21:00 ENT: Positive for ear pain. 21:00 All other systems are negative. Exam: 21:00 Constitutional: This is a well developed, well nourished patient who is awake, alert, ms3 and in no acute distress. Head/Face: Normocephalic, atraumatic. 21:00 Skin: Warm, dry with normal turgor. Normal color with no rashes, no lesions, and no evidence of cellulitis. 21:00 ENT: Ear canal(s): bloody discharge, that is minimal, in the left canal, TM's: erythema, on the left, PE tubes visualized. PE tubes patent, intact, draining in ear canal Vital Signs: 19:18 BP 170 / 117; Pulse 75; Resp 18 S; Temp 98.6(TE); Pulse Ox 100% ; Weight 158.76 kg (R); lg3 Height 6 ft. 3 in. (190.50 cm) (R); Pain 8/10; 19:18 Body Mass Index 43.75 (158.76 kg, 190.50 cm) lg3 MDM: 19:35 Patient medically screened. ms3 21:00 Differential diagnosis: migraine, otitis, sinusitis. Data reviewed: vital signs, nurses ms3 notes, lab test result(s), and as a result, I will discharge patient. Counseling: I had a detailed discussion with the patient and/or guardian regarding: the historical points, exam findings, and any diagnostic results supporting the discharge/admit diagnosis, lab results, the need for outpatient follow up, to return to the emergency department if symptoms worsen or persist or if there are any questions or concerns that arise at home. ED course: Discussed labs with patient. Patient states symptoms have resolved at this time. Patient to follow-up with ENT in [place] as scheduled next week. Patient understands agrees with plan. All questions were answered. Return precautions discussed include fevers, chills, neck pain, headache, or any other concerns.. 09/07 19:41 Order name: CBC with Diff; Complete Time: 20:56 ms3 09/07 19:41 Order name: BMP; Complete Time: 20:56 ms3 Administered Medications: 20:00 Drug: NS 0.9% 1000 ml Route: IV; Rate: 1000 ml; Site: left antecubital; kl 20:00 Drug: Decadron - Dexamethasone 10 mg Route: IVP; Site: left antecubital; kl 20:05 Drug: Ketorolac 10 mg 10 mg Route: IVP; Site: left antecubital; kl 20:10 Drug: Benadryl (diphenhydrAMINE) 25 mg Route: IVP; Site: left antecubital; kl 20:20 Drug: Reglan (metoCLOPramide) 10 mg Route: IVP; Site: left antecubital; kl 20:58 Drug: GI Cocktail without - (Maalox Suspension 30 ml, Lidocaine Liquid 2 % 15 kl ml) Route: PO; Disposition Summary: 09/07/22 20:59 Discharge Ordered Location: Home ms3 Condition: Stable ms3 Diagnosis - Headache ms3 - Left ear pain ms3 - Acute suppurative otitis media ms3 Followup: ms3 - With: Private Physician - When: 2 - 3 days - Reason: Recheck today's complaints Discharge Instructions: - Discharge Summary Sheet ms3 - General Headache Without Cause ms3 - Otitis Media, Adult, [id number] ms3 Forms: - Medication Reconciliation Form ms3 - Thank You Letter ms3 - Antibiotic Education ms3 - Prescription Opioid Use ms3 Prescriptions: - Ciprodex 0.3-0.1 % Otic Drops, Suspension - instill 4 drops by OTIC route every 12 hours for 7 days , for ears ONLY; 1 ms3 Container; Refills: 0, Product Selection Permitted Signatures: Dispatcher [employer] Shanthi Ordonez RN RN kl Gibson, Lacie, RN RN 3 Mathieu Orellana, DO ms3
--- NOTE | 2022-09-07 21:00 | ER ---
Nurse's Notes [facility] Name: Terry Akins Sr Age: 42 yrs Sex: Male : 1980 Arrival Date: 09/07/2022 Time: 19:12 Bed 10 Private MD: Diagnosis: Headache;Left ear pain;Acute suppurative otitis media Presentation: 09/07 19:18 Chief complaint: Patient states: left ear pain and drainage for 8 days. recently had lg3 tube placed. now having migraine. STUDENT ADVISOR shunt placed Sep 2021. nausea present. Coronavirus screen: Client denies travel out of the [place] in the last 14 days. At this time, the client does not indicate any symptoms associated with coronavirus-19. Ebola Screen: No symptoms or risks identified at this time. Initial Sepsis Screen: Does the patient meet any 2 criteria? No. Patient's initial sepsis screen is negative. Risk Assessment: Do you want to hurt yourself or someone else? Patient reports no desire to harm self or others. Onset of symptoms is unknown. 19:18 Method Of Arrival: Ambulatory lg3 19:18 Acuity: SARITHA 3 lg3 19:18 Initial Sepsis Screen: Does the patient have a suspected source of infection? No. lg3 Patient's initial sepsis screen is negative. Triage Assessment: 19:24 Headache History: The patient has had previous headaches and this one is similar to lg3 previous episodes. General: Appears in no apparent distress. comfortable, Behavior is calm, cooperative. Pain: Complains of pain in left ear Pain currently is 8 out of 10 on a pain scale. Pain began 8 days ago Also complains of nausea, photophobia. EENT: Reports pain in left ear. Neuro: No deficits noted. Navarro Agitation-Sedation Scale (RASS): 0 - Alert and Calm Level of Consciousness is awake, alert, obeys commands, Oriented to person, place, time, situation. Cardiovascular: No deficits noted. Denies chest pain, shortness of breath, Capillary refill < 3 seconds Clubbing of nail beds is absent JVD is absent Patient's skin is warm and dry. Respiratory: No deficits noted. Airway is patent Trachea midline Respiratory effort is even, unlabored, Respiratory pattern is regular, symmetrical. GI: No deficits noted. No signs and/or symptoms were reported involving the gastrointestinal system. Abdomen is round non-distended. : No deficits noted. No signs and/or symptoms were reported regarding the genitourinary system. Derm: Skin is intact, is healthy with good turgor, Skin is dry, Skin is normal, Skin temperature is warm. Musculoskeletal: No deficits noted. No signs and/or symptoms reported regarding the musculoskeletal system. Circulation, motion, and sensation intact. Range of motion: intact in all extremities. Historical: - Allergies: 19:24 No Known Allergies; lg3 - Home Meds: 19:24 lisinopril 40 mg oral tab once daily [Active]; pantoprazole oral [Active]; Omeprazole lg3 Oral [Active]; Topamax Oral [Active]; - PMHx: 19:24 Hypertensive disorder; Migraine; lg3 - PSHx: 19:24 Appendectomy; carpal tunnel right; hernia; left hand tendonitis; Nerve transplantion; lg3 shunt; - Immunization history:: Adult Immunizations up to date, Client reports receiving the 2nd dose of the Covid vaccine, Flu vaccine is up to date. - Social history:: Smoking status: Patient/guardian denies using tobacco, Stopped _ months ago 1 Patient uses alcohol, occasionally. Patient/guardian denies using street drugs. Screenin:29 [facility] ED Fall Risk Assessment (Adult) History of falling in the last 3 months, lg3 including since admission No falls in past 3 months (0 pts). Abuse screen: Denies threats or abuse. Denies injuries from another. Nutritional screening: No deficits noted. Tuberculosis screening: No symptoms or risk factors identified. Assessment: 21:04 General: Appears in no apparent distress. comfortable, Behavior is calm, cooperative, aa9 appropriate for age. Respiratory: Airway is patent Respiratory effort is even, unlabored. 21:05 Reassessment: Patient states feeling better. aa9 Vital Signs: 19:18 BP 170 / 117; Pulse 75; Resp 18 S; Temp 98.6(TE); Pulse Ox 100% ; Weight 158.76 kg (R); lg3 Height 6 ft. 3 in. (190.50 cm) (R); Pain 8/10; 19:18 Body Mass Index 43.75 (158.76 kg, 190.50 cm) lg3 ED Course: 19:12 Patient arrived in ED. rg4 19:15 Mathieu Orellana DO is Attending Physician. ms3 19:16 Mathieu Orellana DO is Attending Physician. ms3 19:24 Triage completed. lg3 19:24 Arm band placed on right wrist. lg3 19:29 Patient has correct armband on for positive identification. lg3 20:22 Inserted saline lock: 20 gauge in left antecubital area, using aseptic technique. Blood ls5 collected. 20:24 BMP Sent. kl 20:24 CBC with Diff Sent. kl 21:04 No provider procedures requiring assistance completed. IV discontinued, intact, aa9 bleeding controlled, No redness/swelling at site. Pressure dressing applied. Administered Medications: 20:00 Drug: NS 0.9% 1000 ml Route: IV; Rate: 1000 ml; Site: left antecubital; kl 20:00 Drug: Decadron - Dexamethasone 10 mg Route: IVP; Site: left antecubital; kl 20:05 Drug: Ketorolac 10 mg 10 mg Route: IVP; Site: left antecubital; kl 20:10 Drug: Benadryl (diphenhydrAMINE) 25 mg Route: IVP; Site: left antecubital; kl 20:20 Drug: Reglan (metoCLOPramide) 10 mg Route: IVP; Site: left antecubital; kl 20:58 Drug: GI Cocktail without - (Maalox Suspension 30 ml, Lidocaine Liquid 2 % 15 kl ml) Route: PO; Medication: 21:05 VIS not applicable for this client. aa9 Outcome: 20:59 Discharge ordered by MD. ms3 21:04 Discharged to home ambulatory. aa9 21:04 Condition: stable 21:04 Discharge instructions given to patient, Instructed on discharge instructions, follow up and referral plans. medication usage, Demonstrated understanding of instructions, follow-up care, medications, Prescriptions given X 1. 21:06 Patient left the ED. aa9 Signatures: Shanthi Badillo RN RN kl Garcia, Rubi rg4 Lili Mims RN RN lg3 Mathieu Orellana DO DO ms3 Akua Wilson, RN RN aa9 Reinier Romero ls5
[2022-09-07 21:45] VITALS: BP 170/117; TEMP 98.6; O2SAT 100
== END 2022-09-07 21:06 | disposition home or self-care (01) ==
LOC: ER 19:09
DX: H66.002 Acute suppurative otitis media without spontaneous rupture of ear drum, left ear (principal); R51.9 Headache, unspecified; I10 Essential (primary) hypertension
CPT/HCPCS: 85025; 80048; 36415; 96375; 96374; 99284; J2765; J1200; J1100; J7030

== ENCOUNTER 2022-09-18 11:51 | Emergency (ER) | payer OTHER ==
--- OUTSIDE RECORDS SUMMARY | 2022-09-18 12:00 | XMS REPORT | Continuity of Care Document ---
:1980 Author Organization [facility] t Address [address] [place] [id number] Care Team Providers Name Role Phone Asked, No Pcp Primary Care Physician Unavailable John Vazquez Attending Clinician Unavailable GERONIMO BALDERAS Attending Clinician Unavailable NOAH OSORIO Attending Clinician Unavailable JUNIOR KUMAR Attending Clinician Unavailable MANASA NOGUEIRA Attending Clinician Unavailable ANU TUCEKR Attending Clinician Unavailable NOAH OSORIO Attending Clinician Unavailable SONIA ROBERTS Attending Clinician Unavailable Rae Naranjo RN Attending Clinician Unavailable Layne Sánchez MA Attending Clinician Unavailable Geronimo Balderas MD Attending Clinician Dorothea Delgadillo MA Attending Clinician Unavailable Amelia Cameron MA Attending Clinician Unavailable Brii Howard MA Attending Clinician Unavailable Doctor Unassigned, Brantley Attending Clinician Unavailable 1, [employer] [...] Number Effective Expiration Source Type Date Date [facility] MEDICAID [place] [id number] 2018 00:00:00 [facility] [id number] 2018 Common S pirit CHOICE 00:00:00 - [facility] [id number] 2018 Common S pirit CHOICE 00:00:00 - [facility] [id number] 2018 Common S pirit CHOICE 00:00:00 - [facility] [id number] 2018 Common S pirit CHOICE 00:00:00 - [facility] [id number] 2019 [facility] CHOICE - MANAGED 00:00:00 [facility] MEDICAIDCOMMUNITY [facility] CHOICE [id number]/2019-Present[address] [address] [id number] 2018 Common S pirit CHOICE 00:00:00 - [facility] [id number] 2018 Common S pirit CHOICE 00:00:00 - [facility] [id number] 2018 Common S pirit CHOICE 00:00:00 - [facility] Problems Condition Condition Condition Status Onset Resolution Last Treating Co mments Source Name Details Category Date Date Treatment Clinician Date BMI BMI Disease Active 2021-08 [place] 40.0-44.9, 40.0-44.9, 0-07 He alth adult adult 00:00: 00 UNSPECIFIE UNSPECIFI Diagnosis Active 2021-10-26 Memoria D ED 3-15 18:20:00 l ABDOMINAL ABDOMINAL 00:00: Herm faina PAIN PAIN 00 Active 10/24/2021 [facility] DISPLACED Diagnosis Active 2021-10-08 Memoria PACKAGER HEAD SHUNT DISPLACED 10-08 19:39:00 l PACKAGER HEAD SHUNT 00:00: [place] Active 00 10/08/2021 [facility] PACKAGER HEAD SHUNT PACKAGER HEAD SHUNT Diagnosis Active 2021-10-26 Memoria MALF MALF 10-08 18:20:00 l Active 00:00: U[place]ling 10/08/2021 00 [facility] G96.00 G96.00 Diagnosis Active 2021-10-26 Me moria Active 09-28 18:20:00 l 09/28/2021 00:00: Sadi n [address] MD LOJA Diagnosis Active 2021-05-10 Mem oria REFERRAL/ REFERRAL/ 05-10 20:33:00 l FLUIDS FLUIDS 00:00: Davidson LEAKING LEAKING 00 FROM EAR FROM EAR Active 05/10/2021 [facility] CSF CSF Disease Active [facility] otorrhea otorrhea 05-09 Health 00:00: 00 Syncope Syncope Disease Active 2017-[facility] 00 l Lesion of Lesion of Problem 2019-01-26 Memoria ulnar ulnar 15:19:24 l nerve, nerve, Davidson right right upper limb upper limb 01/26/2019 [place] Unspecifie Unspecifi Problem 2019-01-26 Memoria d ed 15:19:24 l osteoarthr osteoarthr Harpreet veliz itis, itis, unspecifie unspecifie d site d site 01/26/2019 [place] Sleep Sleep Problem 2019-01-26 Memor ia apnea, apnea, 15:19:24 l unspecifie unspecifie He anirudhann d d 01/26/2019 [place] Unspecifie Unspecifi Problem 2019-01-26 Memoria d asthma, ed asthma, 15:19:24 l uncomplica uncomplica He jose alfredo leydi leydi 01/26/2019 [place] Anxiety Anxiety Problem 2019-01-26 De moria disorder, disorder, 15:19:24 l unspecifie unspecifie He jose alfredo d d 01/26/2019 [place] Gastro-eso Gastro-es Problem 2019-01-26 Memoria phageal ophageal 15:19:24 l reflux reflux Davidson disease disease without without esophagiti esophagiti s s 01/26/2019 [place] Essential Essential Problem 2019-01-26 Memoria (primary) (primary) 15:19:24 l hypertensi hypertensi Harpreet rmann on on 01/26/2019 [place] Personal Personal Problem 2019-01-26 Memoria history of history of 15:19:24 l nicotine nicotine Sadi n dependence dependence 9 [place] Allergy Allergy Problem 2019-01-26 Me moria status to status to 15:19:24 l analgesic analgesic Herm faina agent agent status status 01/26/2019 [place] 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) (current) 15:19:24 l use of use of [place] non-steroi non-steroi siddharth siddharth anti-infla anti-infla mmatories mmatories (NSAID) (NSAID) 01/26/2019 [place] Dependence Problem 2019-01-26 M emoria on other Dependence 15:19:24 l enabling on other Sadi n machines enabling and machines devices and devices 01/26/2019 [place] Arthrodesi Arthrodes Problem 2019-01-26 Memoria s status is status 15:19:24 l 01/26/2019 Sadi n [place] Cerebrospi Cerebrosp Problem Active 2021-10-27 Memoria nal fluid inal fluid 23:21:02 l leak leak Davidson (disorder) (disorder) Active Problem 10/27/2021 [facility], RHODA Cedeño, RHODA [place] Chest pain Chest Problem Active 2021-10-27 M emoria (finding) pain 23:21:02 l (finding) Davidson Active Problem 10/27/2021 [facility], RHODA Cedeño, RHODA Burr,M H [place] Morbid Morbid Problem Active 2021-10-27 David katarzyna obesity obesity 23:21:02 l (disorder) (disorder) He rmann Active Problem 10/27/2021 [facility], RHODA Cedeño, RHODA Burr Rhabdomyol Rhabdomyo Problem Active 2021-10-27 Memoria ysis lysis 23:21:02 l (disorder) (disorder) He rmann Active Problem 10/27/2021 [facility], RHODA Cedeño, RHODA Burr,M H [place] Smoker Smoker Problem Active 2021-10-27 Mem oria (finding) (finding) 23:21:02 l Active Davidson Problem 10/27/2021 [facility], RHODA Cedeño, RHODA Burr MECH COMPL MECH Diagnosis Active 2021-10-26 Memoria OF COMPL OF 18:20:00 l VENTRICULA VENTRICULA jose alfredo R R INTRACRANI INTRACRANI AL S AL S Active [facility] R10.30 - R10.30 - Diagnosis Active 2021-10-26 Memoria LOWER LOWER 18:20:00 l ABDOMINAL ABDOMINAL Herm faina PAIN, PAIN, UNSPECIF UNSPECIF Active RHODA Cedeño R10.84 - R10.84 - Diagnosis Active 2022-01-10 Memoria GENERALIZE GENERALIZE 14:35:00 l D Tricia Cedeño ABDOMINAL ABDOMINAL PAIN PAIN Active RHODA Burr No known No known Disease Unive rs active active ity of problems problems [facility] Cubital Cubital Problem Active UT tunnel tunnel [...] Active [place] vomiting vomiting Physic i ans [id number] 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 migrainosu Medica l s, not Center intractabl e [id number] Attention Problem Comm on deficit Spirit hyperactiv - CHI ity [facility] (ADHD), Medical [facility] Center type [id number] Primary Problem Comm on osteoarthr Spirit itis of - CHI right knee [facility] [id number] Pain in Problem Common right knee Spirit - [facility] [id number] Left Problem Common maxillary Spirit sinusitis - [facility] [id number] Hypertensi Problem Com mon on, Spirit unspecifie - CHI d type [facility] [id number] GERD Problem Common without Spirit esophagiti - CHI s [facility] [id number] Tobacco Problem Commo n use Spirit disorder - [facility] [id number] Other Problem Common chronic Spirit pain - [facility] [id number] Mixed Problem Common hyperlipid Spirit emia - [facility] [id number] Decreased Problem Com mon hearing of Spirit left ear - [facility] [id number] Loss of Problem Common taste Spirit - [facility] Sprain of Sprain Problem Resolve 2021-10-27 2021-10-27 Memoria ligament of d 12-22 23:21:02 23:21:02 l of finger ligament 00:00: Kelly nn (disorder) of finger 00 (disorder) Resolved 12/23/2011 Problem 10/27/2021 [facility], RHODA Cedeño, Thomas Renteria [place] History of Past Illness Condition Condition Condition Status Onset Resolution Last Treating Co mments Source Name Details Category Date Date Treatment Clinician Date Headache, Headache, Problem 2021-05-13 2021-05-13 Memoria unspecifie unspecifie 05-10 21:21:08 21:21:08 l d d 17:00: Davidson 05/10/2021 00 [facility] Carpal Carpal Problem 2017-082019-01-26 2019-01-26 Memoria tunnel tunnel 2- 15:19:24 15:19:24 l syndrome, syndrome, 04:59: Herm faina right right 41 upper limb upper limb 07/17/2018 9 [place] Obstructiv Obstructi Problem 2017-082019-01-11 2019-01-11 Mike e sleep ve sleep 08-28 11:08:48 11:08:48 l apnea apnea 05:23: Davidson (adult) (adult) 17 (pediatric (pediatric ) ) 06/28/2018 01/11/2019 [place] Unspecifie Unspecifi Problem 2017-082018-12-03 2018-12-03 Memmarlene d ed 0-11 14:53:30 14:53:30 l mononeurop mononeurop 04:28: Harpreet veliz athy of athy of 42 right right upper limb upper limb 8 12/03/2018 [place] Pain in Pain in Problem 2017-082018-12-03 2018-12-03 Memmarlene arm, arm, 0-05 14:53:30 14:53:30 l unspecifie unspecifie 05:00: He rmann d d 00 05/16/2018 12/03/2018 [place] Allergies, Adverse Reactions, Alerts Allergy Allergy Status Severity Reaction(s) Onset Inactive Treating Comm ents Source Name Type Date Date Clinician NO KNOWN Drug Active Univers ALLERGIE Class ity of S [facility] Acetamin drug Active Headache [place] ophen [...] Date Stop Date Quantity Comments Source History [facility] Health Alcohol Frequency History [facility] Health Alcohol Std Drinks History [facility] Binge History of Current smoker [facility] tobacco use History of Current Smoker Common Spi rit - Tobacco Use [facility] Exposure to 2022-05-06 2022-05-16 Not sure [facility] SARS-CoV-2 00:00:00 14:58:00 (event) Alcohol Comment 2021-10-18 2021-10-18 Ocassionally [facility] 00:00:00 00:00:00 Tobacco use and 2021-10-18 2021-10-18 Smokeless tobacco [facility] exposure 00:00:00 00:00:00 non-user Social History 2018-07-08 2018-07-08 [facility] 18:40:37 18:40:37 Alcohol intake 2018-05-25 2018-05-25 Current non-drinker M ethodist 00:00:00 00:00:00 of [facility] (finding) Sex Assigned At [birth year] [facility] 00:00:00 00:00:00 Hospital Smoking Status Start Date Stop Date Source Unknown if ever smoked [facility] Current Smoker 2022-06-22 00:00:00 Common Spiri t - [facility] Ex-smoker 2021-10-18 00:00:00 2021-10-18 00:00:00 [facility] Medications Ordered Filled Start Stop Current Ordering [...] Pantoprazo e Sodium 40 e Sodium 40 -11 t} le Sodium MG MG 00:00: 40 [...] Pain Score 7-10, Start date: 10/09/21 15:36:00 WHOLESALER Ofirmev No or = 50 Memori a 2- kg, Start l 21:19: date: 10/09/21 15:19:00 WHOLESALER sugammadex No Route: IV, M emoria (ANES) 10-09 Drug form: l 21:05: Davidson DAVE ONCE, Stop date: 10/09/21 15:05:00 WHOLESALER Hydromorpho No Notes: David katarzyna ne 10-09 Same as l 21:02: Dilaudid Flumazenil No Notes: Memor ia 10-09 (Same as: l 21:02: Romazicon) Naloxone No Notes: Memoria 10-09 Same as l 21:02: Narcan Ondansetron No 4 mg, Memor ia - Route: l 21:02: IVP, ONCE, Dosing Weight 156, kg, PRN Nausea & Vomiting, Start date: 10/09/21 15:02:00 WHOLESALER ondansetron No Route: IV, Memoria (ANES) 10-09 Drug form: l 21:00: INJ, ONCE, Stop date: 10/09/21 15:00:00 WHOLESALER ceFAZolin No Route: IV, Me moria (ANES) 10-09 Drug form: l 20:38: INJ, ONCE, Stop date: 10/09/21 14:38:00 WHOLESALER propofol No Route: IV, Mem oria (ANES) 10-09 Drug form: l 20:33: INJ, ONCE, Stop date: 10/09/21 14:33:00 WHOLESALER rocuronium No Route: IV, M emoria (ANES) 10-09 Drug form: l 20:33: INJ, ONCE, Stop date: 10/09/21 14:33:00 WHOLESALER fentaNYL No Route: IV, Mem oria (ANES) 10-09 Drug form: l 20:33: INJ, ONCE, Stop date: 10/09/21 14:33:00 WHOLESALER dexamethaso No Route: IV, Memoria ne (ANES) 10-09 Drug form: l 20:33: INJ, ONCE, Stop date: 10/09/21 14:33:00 WHOLESALER lidocaine No Route: IV, Me moria (ANES) 10-09 Drug form: l 20:28: INJ, ONCE, Stop date: 10/09/21 14:28:00 WHOLESALER Isolyte S No Route: IV, Me moria PH 7.4 10-09 Total l (ANES) 1000 19:29: Volume: Her jones mL 00 1,000, Start date: 10/09/21 13:29:00 WHOLESALER, Stop date: 10/09/21 14:29:00 WHOLESALER Epinephrine Yes Notes: David katarzyna 0.01 MG/ML 10-09 (Same as: l / Lidocaine 18:26: Xylocaine H ermann Hydrochlori 00 w/Epinephr de 10 MG/ML ine) Injectable Solution Lidocaine No 1 patch, David katarzyna 0.05 MG/MG 10-09 Route: l Transdermal 15:00: TOP, Sadi n Patch 00 Daily, Drug form: FILM, Start date: 10/09/21 9:00:00 WHOLESALER, Duration: 30 day, Stop date: 11/07/21 9:00:00 CDT, 0 Levetiracet No 500 mg, 1 M emoria am 500 MG 10-09 tab, l Oral Tablet 15:00: Route: PO, [place] [Keppra] 00 Drug form: TAB, Q12H, Dosing Weight 156, kg, Start date: 10/09/21 9:00:00 WHOLESALER, Duration: 30 day, Stop date: 11/07/21 21:00:00 CDT, 0 Hydromorpho No Notes: David katarzyna ne 10-09 Same as l 13:57: Dilaudid Davidson 00 Reglan No Notes: Memoria 2-28 (Same as: l 08:15: Reglan) Davidson 00 Dilaudid No Notes: Memoria 2-28 Same as l 08:15: Dilaudid Sodium No 1,000 mL, Memori a Chloride - Rate: 75 l 0.9% IV 06:49: ml/hr, Uehling 1,000 mL 00 Infuse over: 13.3 hr, Route: IV, Dosing Weight 156 kg, Total Volume: 1,000, Start date: 10/09/21 0:49:00 WHOLESALER, Duration: 30 day, Stop date: 11/08/21 0:48:00 CDT, BSA: 2.9 m2, 0 Docusate No Notes: Memoria 2-28 (Same as: l 03:00: Colace) Davidson (Do Not Crush) sennosides, No Notes: David katarzyna CARE HOME -28 (Same as: l 03:00: Senokot) [place]ling 00 Saline No Notes: Memoria Flush 0.9% 2-28 (Same as: l 03:00: BD Davidson 00 Posiflush) Sodium No 1,000 mL, Memori a Chloride 2-28 Rate: 50 l 0.9% IV 01:57: ml/hr, U[place]ling 1,000 mL 00 Infuse over: 20 hr, Route: IV, Dosing Weight 156 kg, Total Volume: 1,000, Start date: 10/08/21 19:57:00 WHOLESALER, Duration: 30 day, Stop date: 11/07/21 19:56:00 CDT, BSA: 2.9 m2, 0 Acetaminoph No Notes: Do M emoria en -28 not exceed l 01:57: 4 gm/day. Davidson 00 (Same as: Tylenol) Acetaminoph No Notes: David katarzyna en 325 MG / - (Same as: l Hydrocodone 01:57: [place] Kelly nn Bitartrate 00 325/5) Do 5 MG Oral not exceed Tablet 4gm/day of acetaminop hen. Morphine No Notes: Memoria 2-28 (Same l 01:57: as:MORPhin [place]ling 00 e Sulfate) Bisacodyl No Notes: Memori a 2-28 (Same As: l 01:57: Dulcolax, Uehling Bisco-Lax) Ondansetron No Notes: David katarzyna 2-28 (Same as: l :57: Zofran) MEDICATION WASTE Product Size: 4 mg Product Wasted: ___ mg Hydralazine No Notes: David katarzyna 2-28 (Same as: l 01:57: Apresoline ) Push over 5 minutes Labetalol No 10 mg, 2 David katarzyna 2-28 mL, Route: l 01:57: IVP, Drug form: INJ, Q15Min, Dosing Weight 156, kg, PRN Hypertensi on, Start date: 10/08/21 19:57:00 WHOLESALER, Duration: 3 doses or times, Stop date: Limited # of times, 0 Saline No Notes: Memoria Flush 0.9% 10-09 (Same as: l 01:57: BD Davidson 00 Posiflush) Insulin No Notes: Memoria regular -28 (Same as: l 01:57: Humulin R) Uehling 00 Roll in palms of hands gently; Do not shake vigorously . WASTE: F/P - Black; E - Municipal Trash Bin Stable for 31 days at room temperatur e Expires in days from ____Date Dilaudid No Notes: Memoria 2-28 Same as l 01:30: Dilaudid [place] Levetiracet Yes 500 mg = 1 Memoria am 500 MG 2-24 tab, PO, l Oral Tablet 13:52: Q12H, # 60 [place] [Keppra] 00 tab, 0 Refill(s), Pharmacy: [id number], 190.5, cm, 10/03/21 6:40:00 WHOLESALER, Height, 159.3, kg, 10/03/21 6:40:00 WHOLESALER, Weight docusate Yes 2 cap, PO, Mem oria sodium 50 2-24 QPM, X 10 l MG / 13:52: day, # 20 [place] sennosides, 00 cap, 0 CARE HOME 8.6 MG Refill(s), Oral Pharmacy: [facility] #[id number], 190.5, cm, 10/03/21 6:40:00 WHOLESALER, Height, 159.3, kg, 10/03/21 6:40:00 WHOLESALER, Weight magnesium Yes 8.725 gm = Me moria citrate 2-24 150 ml, l 58.2 MG/ML 13:52: PO, ONCE, He rmann Oral 00 if no Solution bowel movement in couple days, # 300 ml, 0 Refill(s), Pharmacy: [facility] #[id number], 190.5, cm, 10/03/21 6:40:00 WHOLESALER, Height, 159.3, kg, 10/03/21 6:40:00 WHOLESALER, Weight POLYETHYLEN Yes 17 gm, PO, Memoria E GLYCOL 2-24 Daily, X l 3350 142 13:52: 10 day, # Herm faina MG/ML Oral 00 170 gm, 0 Solution Refill(s), [Miralax] Pharmacy: [facility] #[id number], 190.5, cm, 10/03/21 6:40:00 WHOLESALER, Height, 159.3, kg, 10/03/21 6:40:00 WHOLESALER, Weight Ondansetron No 4 mg = 1 Me moria 4 MG Oral 2-24 tab, PO, l Tablet 13:52: Q8H, PRN [place] [Zofran] Nausea/vom iting, X 3 day, # 10 tab, 0 Refill(s), Pharmacy: [facility] #[id number], 190.5, cm, 10/03/21 6:40:00 WHOLESALER, Height, 159.3, kg, 10/03/21 6:40:00 WHOLESALER, Weight Acetaminoph Yes 1 tab, PO, Memoria en 325 MG / 2-24 Q4-6H, PRN l Hydrocodone 13:52: Pain Score U[place] Bitartrate 00 4-6, X 5 5 MG Oral day, # 30 Tablet tab, 0 [[place] Refill(s), 5/325] other heparin No Notes: Memoria 5000 2-23 porcine l units/mL 22:00: heparin Sadi n injectable 00 solution Saline No Notes: Memoria Flush 0.9% 2-23 Same as: l 03:00: BD Posiflush Sterile Levetiracet No Notes: David katarzyna am 500 MG 2-23 (Same l Oral Tablet 03:00: as:Keppra) [Keppra] Cefazolin No Notes: Memori a 2-23 (Same as l 02:00: Ancef) Docusate No Notes: Memoria 2-22 (Same as: l 23:00: Colace) (Do Not Crush) sennosides, No Notes: David katarzyna CARE HOME 2-22 (Same as: l 23:00: Senokot) Famotidine No Notes: Memor ia 20 MG Oral -22 (Same as: l Tablet 23:00: Pepcid) Hydromorpho No 0.5 mg, Mem oria ne - Route: l 20:05: IVP, ONCE, Dosing Weight 159.3, kg, Priority: STAT, Start date: 10/03/21 14:05:00 WHOLESALER, Stop date: 10/03/21 14:05:00 WHOLESALER metoprolol No Route: IV, M emoria (ANES) 10-03 Drug form: l 19:20: INJ, ONCE, Stop date: 10/03/21 13:20:00 WHOLESALER Oxycodone No 10 mg, Memori a Hydrochlori 10-03 Route: PO, l de 5 MG 19:16: Drug form: Herm faina Oral Tablet 00 TAB, Q4H, Dosing Weight 159.3, kg, PRN Pain Score 7-10, Start date: 10/03/21 13:16:00 WHOLESALER, Duration: 30 day, Stop date: 11/02/21 13:15:00 CDT sugammadex No Route: IV, M emoria (ANES) 10-03 Drug form: l 18:37: SOLN, 00 ONCE, Stop date: 10/03/21 12:37:00 WHOLESALER ondansetron No Route: IV, Memoria (ANES) 10-03 Drug form: l 18:22: INJ, ONCE, Stop date: 10/03/21 12:22:00 WHOLESALER Dexamethaso No Notes: David katarzyna ne - Give with l 18:00: food. (Same As: Decadron) Hydralazine No Notes: David katarzyna - (Same as: l 17:50: Apresoline ) Push over 5 minutes Ondansetron No Notes: David katarzyna -22 (Same as: l 17:50: Zofran) MEDICATION WASTE Product Size: 4 mg Product Wasted: ___ mg Acetaminoph No Notes: Do M emoria en 325 MG / 10-03 not exceed l Hydrocodone 17:50: 4gm/day of [place] Bitartrate 00 acetaminop 10 MG Oral hen. (Same Tablet as: [place] [[place] 325/10) 10/325] Dilaudid No Notes: Memoria 2-22 Same as l 17:50: Dilaudid Benadryl No Notes: Memoria 2-22 (Same as: l 17:50: Benadryl) [place] phenol No Notes: Memoria 2-22 Chlorasept l 17:50: ic [place] (Same as: Chlorasept ic, Sore Throat [place]) WASTE: F/P - Black; E - Municipal Trash Bin Bisacodyl No Notes: Memori a 2-22 (Same As: l 17:50: Dulcolax, Uehling 00 Bisco-Lax) Robaxin No Notes: Memoria 2-22 (Same l 17:50: as:Robaxin ) Melatonin 3 No Notes: David katarzyna MG Extended 2- (Same as: l Release 17:50: Melatonin) Herm faina Tablet Tylenol No Notes: Do Memor ia 2-22 not exceed l 17:50: 4 gm/day. [place] (Same as: Tylenol) Reglan No Notes: Memoria 2-22 (Same as: l 17:50: Reglan) Phenergan No Notes: Do Mem oria 2-22 not give l 17:50: IV push. (Same as: Phenergan) Saline No Notes: Memoria Flush 0.9% 2-22 Same as: l 17:50: BD Posiflush Sterile Sodium No 1,000 mL, Memori a Chloride - Rate: 100 l 0.9% IV 17:50: ml/hr, Davidson 1,000 mL 00 Infuse over: 10 hr, Route: IV, Dosing Weight 159.3 kg, Total Volume: 1,000, Start date: 10/03/21 11:50:00 WHOLESALER, Duration: 30 day, Stop date: 11/02/21 11:49:00 CDT, BSA: 2.93 m2, 0 Labetalol No 10 mg, 2 David katarzyna 2-22 mL, Route: l 17:50: IVP, Drug form: INJ, Q15Min, Dosing Weight 159.3, kg, PRN Hypertensi on, Start date: 10/03/21 11:50:00 WHOLESALER, Duration: 3 doses or times, Stop date: 10/04/21 0:00:00 WHOLESALER, 0 lidocaine No Route: IV, Me moria (ANES) - Drug form: l 16:45: INJ, ONCE, Stop date: 10/03/21 10:45:00 WHOLESALER rocuronium No Route: IV, M emoria (ANES) 10-03 Drug form: l 16:45: INJ, ONCE, Stop date: 10/03/21 10:45:00 WHOLESALER dexamethaso No Route: IV, Memoria ne (ANES) 10-03 Drug form: l 16:45: INJ, ONCE, Stop date: 10/03/21 10:45:00 WHOLESALER phenylephri No Route: IV, Memoria ne (ANES) 10-03 Drug form: l 16:40: INJ, ONCE, Stop date: 10/03/21 10:40:00 WHOLESALER Hydralazine No Notes: David katarzyna - (Same as: l 16:37: Apresoline ) Push over 5 minutes Labetalol No 10 mg, 2 David katarzyna 2-22 mL, Route: l 16:37: IVP, Drug form: INJ, Q5Min, Dosing Weight 159.3, kg, PRN Elevated BP, Start date: 10/03/21 10:37:00 WHOLESALER, Duration: 5 doses or times, Stop date: 10/04/21 0:00:00 WHOLESALER, 0 Oxycodone No Notes: Memori a Hydrochlori [...] 16:35: INJ, ONCE, Stop date: 10/03/21 10:35:00 WHOLESALER fentaNYL No Route: IV, Mem oria (ANES) 10-03 Drug form: l 16:35: INJ, ONCE, Stop date: 10/03/21 10:35:00 WHOLESALER midazolam No Route: IV, Me moria (ANES) 10-03 Drug form: l 16:24: SOLN, ONCE, Stop date: 10/03/21 10:24:00 WHOLESALER ceFAZolin No Route: IV, Me moria (ANES) 10-03 Drug form: l 16:24: INJ, ONCE, Stop date: 10/03/21 10:24:00 WHOLESALER levETIRAcet No Route: IV, Memoria am (ANES) 10-03 Drug form: l 100 mg 16:20: INJ, Start date: 10/03/21 10:20:00 WHOLESALER, Stop date: 10/03/21 11:20:00 WHOLESALER propofol No Route: IV, Mem oria (ANES) 10 10-03 Drug form: l mg 15:26: INJ, Start date: 10/03/21 9:26:00 WHOLESALER, Stop date: 10/03/21 10:26:00 WHOLESALER Isolyte S No Route: IV, Me moria PH 7.4 10-03 Total l (ANES) 1000 14:26: Volume: Her jones mL 00 1,000, Start date: 10/03/21 8:26:00 WHOLESALER, Stop date: 10/03/21 9:26:00 WHOLESALER Isolyte S No Notes: Memori a PH 7.4 10-03 (Same as: l 1,000 mL 12:35: Isolyte S Herm faina 00 PH7.4, Normosol-R PH 7.4, Plasma-Lyt e A ) Acetaminoph No 1,000 mg, M emoria en 10-03 Route: PO, l 12:35: Drug form: [place] 00 TAB, PRE OP, Dosing Weight 160.3, kg, Priority: NOW, Start date: 10/03/21 6:35:00 WHOLESALER, Duration: 1 doses or times NS + KCL No Notes: Memoria 20mEq/L 10-03 PREMIX IV l 1000ml 12:00: - Do Not Uehling (Premix) 00 Alter 1,000 mL WASTE: F/P [...] PRN, 0 Memoria 10-02 Refill(s) l 18:02: Uehling 00 Sodium No 250 mL, Memoria Chloride 10-02 Rate: To l 0.9% 17:06: prime line Uehling (titrate) 00 and flush 250 mL remaining blood products., Dosing Weight 160.3, kg, Route: IV, Total Volume: 250, Start Date: 10/02/21 11:06:00 WHOLESALER, Duration: 1 day, Stop date: 10/03/21 11:05:00 WHOLESALER, Replace Every: 24 hr, 0 Acetaminoph No 1 tab, David katarzyna en 325 MG / 05-11 Route: PO, l Hydrocodone 12:17: Drug Form: Davidson Bitartrate 00 TAB, 5 MG Oral Dosing Tablet Weight 139.409, kg, ONCE, STAT, Start date: 05/11/21 7:17:00 CDT, Stop date: 05/11/21 7:17:00 CDT Acetaminoph 2020-0 No 1,000 mg, M havena en 05-11 Route: PO, l 07:46: ONCE, Dosing Weight 139.409, kg, Start date: 05/11/21 2:46:00 CDT, Stop date: 05/11/21 2:46:00 CDT Iohexol 1-0 No 100 mL, [facility]oria 05-11 Route: l [...] 6 MCG/ACT 00 HOURS inhaler Acetaminoph Acetaminoph 2021-0 No 1{table Acetaminop en-Codeine [...] capsule (MAX OF 6 CAPSULES DAILY) proMETHazin 2021-0 Yes TAKE 1 Univ ers e 25 [...] pirit one) one) 00:00: - [facility] 00 [facility] Kenalog Kenalog 2019- No 40mg Common (Triamcinol (Triamcinol 0-12 S pirit one) one) 00:00: - [facility] 00 [facility] Kenalog Kenalog 2019- No 40mg [facility] (Triamcinol (Triamcinol 0-12 S pirit one) one) 00:00: - [facility] 00 [facility] Kenalog Kenalog 2019- No 40mg Common (Triamcinol (Triamcinol 0-12 S pirit one) one) 00:00: - [facility] 00 [facility] Kenalog Kenalog 2019- No 40mg [facility] (Triamcinol (Triamcinol 0-12 S pirit one) one) 00:00: - [facility] 00 [facility] Amoxicillin Amoxicillin 2019-08 2020- No 1{table BID Amoxicilli -Pot -Pot 0-12 06-02 t} n-Pot Clavulanate Clavulanate 00:00: 00:00 Clavulanat 875-125 MG 875-125 MG 00 :00 e 875-125 MG Promethazin Promethazin 2019-0 2020- No Norah 1 tablet Common e HCl e HCl 4-28 05-03 [place] as needed [facility] 00:00: 00:00 for n/v - [facility] 00 :00 [facility] Bupivicaine Bupivicaine 2019-0 No 4mL [facility] [place] 4[place]06 [facility] 00:00: - [facility] 00 [facility] Kenalog Kenalog 2020-0 No 40mg Common (Triamcinol (Triamcinol 4-06 S pirit one) one) 00:00: - [facility] 00 [facility] Bupivicaine Bupivicaine 2020-0 No 4mL Common [place] 4[place]06 [facility] 00:00: - [facility] 00 [facility] Kenalog Kenalog 2020-0 No 40mg Common (Triamcinol (Triamcinol 4-06 S pirit one) one) 00:00: - [facility] 00 [facility] Bupivicaine Bupivicaine 2020-0 No 4mL Common [place] 4[place]06 [facility] 00:00: - [facility] 00 [facility] Kenalog Kenalog 2020-0 No 40mg Common (Triamcinol (Triamcinol 4-06 S pirit one) one) 00:00: - [facility] 00 [facility] Bupivicaine Bupivicaine 2020-0 No 4mL Common [place] 4[place]06 [facility] 00:00: - [facility] 00 [facility] Kenalog Kenalog 2020-0 No 40mg Common (Triamcinol (Triamcinol 4-06 S pirit one) one) 00:00: - [facility] 00 [facility] Bupivicaine Bupivicaine 2020-0 No 4mL Common [place] 4[place]06 [facility] 00:00: - [facility] 00 [facility] Kenalog Kenalog 2020-0 No 40mg [facility] (Triamcinol (Triamcinol 4-06 S pirit one) one) 00:00: - [facility] 00 [facility] ondansetron 2020-0 Yes [id number] 4mg Take 1 [facility] (ZOFRAN 3-11 tablet by ity of ODT) 4 mg 00:00: mouth [place] disintegrat 00 every 8 Medic al ing tablet (eight) Branch hours as needed for Nausea and Vomiting (N/V). benzonatate 2020-0 Yes [id number] 200mg Take 1 [facility] 200 mg 3-11 capsule by ity of capsule 00:00: mouth 3 [place] 00 (three) Medical times Branch daily as needed for Cough for up to 20 doses. ibuprofen 2020-0 Yes [id number] 600mg Take 1 U nivers 600 mg [...] Pain Score 4-6, Start date: 07/09/18 16:24:00 WHOLESALER Promethazin 2017-08 No Notes: Do M emoria [...] PRN Elevated BP, Start date: 07/09/18 15:26:00 WHOLESALER, Duration: 5 doses or times, Stop date: [...] ONCE, [place] 00 Stop date: 07/09/18 15:19:00 WHOLESALER ceFAZolin 2017-08 No Route: IV, Me moria (ANES) 09-08 Drug form: l 20:43: INJ, ONCE, [place] 00 Stop date: 07/09/18 14:43:00 WHOLESALER lidocaine 2017-08 No Route: IV, Me moria (ANES) 09-08 Drug form: l 20:43: INJ, ONCE, [place] 00 Stop date: 07/09/18 14:43:00 WHOLESALER propofol 2017-08 No Route: IV, Mem oria (ANES) 09-08 Drug form: l 20:43: INJ, ONCE, [place] 00 Stop date: 07/09/18 14:43:00 WHOLESALER fentaNYL 2017-08 No Route: IV, Mem oria (ANES) 09-08 Drug form: l 20:43: INJ, ONCE, Stop date: 07/09/18 14:43:00 WHOLESALER metoclopram 2017-08 No Route: IV, Memoria debbie (ANES) 09-08 Drug form: l 20:38: INJ, ONCE, Stop date: 07/09/18 14:38:00 WHOLESALER famotidine 2017-08 No Route: IV, M emoria (ANES) 09-08 Drug form: l 20:38: INJ, ONCE, [place] 00 Stop date: 07/09/18 14:38:00 WHOLESALER dexamethaso 2017-08 No Route: IV, Memoria ne (ANES) 09-08 Drug form: l 20:38: INJ, ONCE, [place] 00 Stop date: 07/09/18 14:38:00 WHOLESALER midazolam 2017-08 No Route: IV, Me moria (ANES) 09-08 Drug form: l 20:38: SOLN, [place] 00 ONCE, Stop date: 07/09/18 14:38:00 WHOLESALER Lactated 2017-08 No Route: IV, Mem oria Ringers 09-08 Total l Injection 19:45: Volume: Kelly nn IV (ANES) 00 000, 1000 mL Start date: 07/09/18 13:45:00 WHOLESALER, Stop date: 07/09/18 14:45:00 WHOLESALER Famotidine 2017-08 No Notes: Memor ia 40 MG Oral 09-08 (Same as: l Tablet 19:37: Pepcid) [place] [Pepcid] 00 Celebrex 2017-08 No 200 mg, Memori a 09-08 Route: PO, l 19:00: Drug form: [place] 00 CAP, ONCALL, Dosing Weight 140.909, kg, Start date: 07/09/18 13:00:00 WHOLESALER, Duration: 30 day, Stop date: 08/08/18 12:59:00 WHOLESALER Lidocaine 2017-08 No Notes: Memori a Hydrochlori 09-08 Preservati l de 10 MG/ML 19:00: ve free. He rmann Injectable 00 (Same as: Solution Xylocaine MPF) Famotidine 2017-08 No Notes: Memor ia 09-08 (Same as: l 19:00: Pepcid) [place] 00 Can be dilute in 5-10cc NS IVP: Slow IV push over at least 2 minutes. Zofran 2017-08 No 4 mg, Memoria 09-08 Route: l 18:53: IVP, Drug [place] 00 form: INJ, ONCE, Dosing Weight 139.409, kg, Priority: STAT, Start date: 07/09/18 12:53:00 WHOLESALER, Stop date: 07/09/18 12:53:00 WHOLESALER Tylenol 2017-08 No 1,000 mg, Memor ia 09-08 Route: PO, l 18:20: ONCE, [place] 00 Dosing Weight 140.909, kg, Priority: STAT, Start date: 07/09/18 12:20:00 WHOLESALER, Stop date: 07/09/18 12:20:00 WHOLESALER Insulin 2017-08 No Notes: Memoria Lispro 09-08 (Same as: l 18:18: Humalog ) [place] 00 Roll in palms of hands gently; Do not shake `vigorousl y. "Single Patient Use Only " WASTE: F/P - Black; E - Municipal Trash Bin Stable for 28 days at room temperatur e. Expires in days from ____Date Calcium 2017-08 No 1,000 mL, Memor ia Chloride 09-08 Rate: 25 l 0.0014 18:18: ml/hr, [place] MEQ/ML / 00 Infuse Potassium over: 40 Chloride hr, Route: 0.004 IV, Dosing MEQ/ML / Weight Sodium 140.909 Chloride kg, Total 0.103 Volume: MEQ/ML / 1,000, Sodium Start Lactate date: 0.028 07/09/18 MEQ/ML 12:18:00 Injectable WHOLESALER, Solution Duration: 30 day, Stop date: 08/08/18 12:17:00 WHOLESALER, 2.75, m2 ceFAZolin + 2017-08 No Notes: David katarzyna sterile 09-08 (Same As: l water 30 mL 12:00: Ancef, Herm faina 00 Kefzol) MEDICATION WASTE Product Size: 1000 mg Product Wasted: ___ mg Lactated 2017-08 No 1,000 mL, David katarzyna Ringers 09-08 Rate: KVO l Injection 12:00: rate, [place] IV 1,000 mL 00 Route: IV, Dosing Weight 140.909 kg, Total Volume: 1,000, Start date: 07/09/18 6:00:00 WHOLESALER, Duration: 30 day, Stop date: 08/08/18 5:59:00 WHOLESALER, 2.75, m2 Norvasc 2017-08 Yes See Memoria 09-07 Instructio l 18:43: ns, PO [place] 00 Daily, 0 Refill(s) Amlodipine 2017-08 Yes See Memoria 09-07 Instructio l 18:42: ns, PO [place] 00 Daily, 0 Refill(s) amLODIPine amLODIPine 2017-08 [...] Notes: Memoria 0-05 (Same l 11:34: as:MORPhin [place] 00 e Sulfate) Dexamethaso 2017-08 No 8 [...] Memoria 0-05 Route: IM, l 11:01: ONCE, [place] 00 Dosing Weight 144.091, kg, Priority: STAT, Start date: 05/16/18 6:01:00 CDT, Stop date: 05/16/18 6:01:00 CDT No known [facility] Zofran Zofran Yes Norah 1 tablet Commo n [place] as needed [facility] Losartan Losartan Yes Norah 1 tablet C ommon Potassium-H Potassium-H [place] [facility] CT[facility] CTZ [facility] Hydrocodone Hydrocodone Yes Norah 1 tablet Common -Acetaminop -Acetaminop [place] as needed [facility] hen [facility] Adderall XR Adderall XR Yes Norah 1 capsule Common [place] in the [facility] Omeprazole Omeprazole Yes Norah 1 capsule Common [place] 30 minutes [facility] before [facility] Dicyclomine Dicyclomine Yes Norah 1 tablet Common HCl HCl [place] [facility] Omeprazole Omeprazole No QD Omeprazole 40 MG [...] H ealth Over Vaccination 00:00:00 (PURPLE-DILUTE) [employer]michel 2020-05-23 Completed [facility] - (Triamcinolone) (Triamcinolone) 11:35:00 [facility] Jaci Landrumalog 2020-05-23 Completed [facility] - (Triamcinolone) (Triamcinolone) 11:35:00 [facility] Jaci Landrumalog 2020-05-23 Completed [facility] - (Triamcinolone) (Triamcinolone) 11:35:00 [facility] Jaci Landrumalog 2020-05-23 Completed [facility] - (Triamcinolone) (Triamcinolone) 11:35:00 [facility] Jaci Landrumalog 2020-05-23 Completed [facility] - (Triamcinolone) (Triamcinolone) 11:35:00 [facility] Jaci Landrumalog 2020-05-23 Completed [facility] - (Triamcinolone) (Triamcinolone) 11:35:00 [facility] Kenalog Kenalog 2020-05-23 Completed [facility] - (Triamcinolone) (Triamcinolone) 11:35:00 [facility] Bupivicaine [place] Bupivicaine [place] 2019-11-16 Completed [facility] - 11:23:00 [facility] Bupivicaine [place] Bupivicaine [place] 2019-11-16 Completed [facility] - 11:23:00 [facility] Bupivicaine [place] Bupivicaine [place] 2019-11-16 Completed [facility] - 11::00 [facility] Bupivicaine [place] Bupivicaine [place] 2019-11-16 Completed [facility] - 11:23:00 [facility] Bupivicaine [place] Bupivicaine [place] 2019-11-16 Completed [facility] - 11::00 [facility] Bupivicaine [place] Bupivicaine [place] 2019-11-16 Completed [facility] - 11::00 [facility] Bupivicaine [place] Bupivicaine [place] 2019-11-16 Completed [facility] - 11::00 [facility] Kenalog Kenalog 2019-11-16 Completed [facility] - (Triamcinolone) (Triamcinolone) 11:: [facility] Kenalog Kenalog 2019-11-16 Completed [facility] - (Triamcinolone) (Triamcinolone) 11::00 [facility] Kenalog Kenalog 2019-11-16 Completed [facility] - (Triamcinolone) (Triamcinolone) 11:22:00 [facility] Kenalog Kenalog 2019-11-16 Completed [facility] - (Triamcinolone) (Triamcinolone) 11::00 [facility] Kenalog Kenalog 2019-11-16 Completed [facility] - (Triamcinolone) (Triamcinolone) 11:22:00 [facility] Kenalog Kenalog 2019-11-16 Completed [facility] - (Triamcinolone) (Triamcinolone) 11::00 [facility] Kenalog Kenalog 2019-11-16 Completed [facility] - (Triamcinolone) (Triamcinolone) 11:22:00 [facility] Fluzone Quadrivalent 2018-06-03 Completed [facility] 0.5 ML Intramuscular 14:35:00 [facility] Vital Signs Vital Name Observation Time Observation Value Comments Source Body height 2022-07-27 190.5 cm [facility] 14:41:00 Body weight 2022-07-27 158.305 kg [facility] 14:41:00 BMI 2022-07-27 43.62 kg/m2 [facility] 14:41:00 height 2022-06-22 72 [in_i] [facility] - 11:20:00 [facility] weight 2022-06-22 343 [lb_av] [facility] - 11:20:00 [facility] temperature 2022-06-22 96.5 [degF] [facility] - 11:20:00 [facility] bmi 2022-06-22 46.51 kg/m2 [facility] - 11:20:00 [facility] oximetry 2022-06-22 97 % [facility] - 11:20:00 [facility] respiratory rate 2022-06-22 18 /min [facility] - 11:20:00 [facility] blood pressure 2022-06-22 141 mm[Hg] Common [facility] - systolic 11:20:00 [facility] blood pressure 2022-06-22 74 mm[Hg] Common [facility] - diastolic 11:20:00 [facility] Systolic blood 2022-05-16 110 mm[Hg] [facility] pressure 20:28:00 Diastolic blood 2022-05-16 72 mm[Hg] [facility] pressure 20:28:00 Heart rate 2022-05-16 60 /min [facility] 20:28:00 Body temperature 2022-05-16 36.11 Chrissie [facility] 20:17:00 Body height 2022-05-16 190.5 cm [facility] 20:17:00 Body weight 2022-05-16 158.305 kg [facility] 20:17:00 BMI 2022-05-16 43.62 kg/m2 [facility] 20:17:00 height 2021-04-06 72 [in_i] [facility] - 14:30:00 [facility] weight 2021-04-06 319 [lb_av] [facility] - 14:30:00 [facility] temperature 2021-04-06 98 [degF] [facility] - 14:30:00 [facility] bmi 2021-04-06 43.26 kg/m2 [facility] - 14:30:00 [facility] blood pressure 2021-04-06 121 mm[Hg] [facility] - systolic 14:30:00 [facility] blood pressure 2021-04-06 76 mm[Hg] [facility] - diastolic 14:30:00 [facility] height 2020-07-12 72 [in_i] [facility] - 16:30:00 [facility] weight 2020-07-12 318.3 [lb_av] [facility] - 16:30:00 [facility] temperature 2020-07-12 97.5 [degF] [facility] - 16:30:00 [facility] bmi 2020-07-12 43.16 kg/m2 [facility] - 16:30:00 [facility] oximetry 2020-07-12 97 % [facility] - 16:30:00 [facility] respiratory rate 2020-07-12 18 /min [facility] - 16:30:00 [facility] blood pressure 2020-07-12 129 mm[Hg] [facility] - systolic 16:30:00 [facility] blood pressure 2020-07-12 64 mm[Hg] [facility] - diastolic 16:30:00 [facility] height 2020-05-23 72 [in_i] [facility] - 11:20:00 [facility] weight 2020-05-23 314.4 [lb_av] [facility] - 11:20:00 [facility] temperature 2020-05-23 97.2 [degF] [facility] - 11:20:00 [facility] bmi 2020-05-23 42.64 kg/m2 [facility] - 11:20:00 [facility] oximetry 2020-05-23 98 % [facility] - 11:20:00 [facility] respiratory rate 2020-05-23 18 /min [facility] - 11:20:00 [facility] blood pressure 2020-05-23 140 mm[Hg] [facility] - systolic 11:20:00 [facility] blood pressure 2020-05-23 74 mm[Hg] [facility] - diastolic 11:20:00 [facility] Heart Rate 2021-10-10 [facility] 14:08:15 [...] ermann 05:19:44 Temperature Oral 2021-10-10 98.7 F [facility] He rmann (F) 05:18:56 Respitory Rate 2021-10-10 [...] n 23:44:00 Temperature Oral 2021-10-08 98.6 F [facility] rmann (F) 23:44:00 Heart Rate 2021-10-05 [facility] 13:48:13 Respitory Rate 2021-10-05 [facility] 13:48:13 Systolic (mm Hg) 2021-10-05 [facility] 13:47:41 Diastolic (mm Hg) 2021-10-05 [facility] 13:47:41 Heart Rate 2021-10-05 [facility] 13:47:41 Temperature Oral 2021-10-05 99.2 F [facility] rmann (F) 13:47:17 Heart Rate 2021-10-05 [facility] 09:39:43 Respitory Rate 2021-10-05 [facility] 09:39:43 Systolic (mm Hg) 2021-10-05 [facility] 09:39:35 Diastolic (mm Hg) 2021-10-05 [facility] 09:39:35 Temperature Oral 2021-10-05 98.4 F [facility] He rmann (F) 09:38:41 Respitory Rate 2021-10-05 [facility] 06:44:26 Systolic (mm Hg) 2021-10-05 [facility] 06:44:17 Diastolic (mm Hg) 2021-10-05 [facility] 06:44:17 Temperature Oral 2021-10-05 98.7 F [facility] rmann (F) 06:42:51 Height 2021-10-03 190.5 cm [facility] 12:40:00 Weight 2021-10-03 [facility] 12:40:00 BMI Calculated 2021-10-03 [facility] 12:40:00 Height 2021-10-02 190.5 cm [facility] 16:30:00 Weight 2021-10-02 [facility] 16:30:00 BMI Calculated 2021-10-02 [facility] 16:30:00 Systolic (mm Hg) 2021-05-11 [facility] rmann 13:50:00 Diastolic (mm Hg) 2021-05-11 [facility] ermann 13:50:00 Temperature Oral 2021-05-11 98.5 F [facility] Harpreet rmann (F) 13:50:00 Systolic (mm Hg) 2021-05-11 [facility] rmann 12:22:00 Diastolic (mm Hg) 2021-05-11 [facility] H ermann 12:22:00 Systolic (mm Hg) 2021-05-11 [facility] He rmann 11:21:00 Diastolic (mm Hg) 2021-05-11 [facility] H ermann 11:21:00 Respitory Rate 2021-05-11 [facility] 11:21:00 Respitory Rate 2021-05-11 [facility] 10:42:00 Respitory Rate 2021-05-11 [facility] 09:02:00 Temperature Oral 2021-05-11 98.4 F [facility] Harpreet rmann (F) 08:30:00 Heart Rate 2021-05-11 [facility] 06:50:00 Heart Rate 2021-05-11 [facility] 06:18:00 Heart Rate 2021-05-11 [facility] 00:55:00 Temperature Oral 2021-05-11 98.2 F [facility] rmann (F) 00:55:00 BP Systolic 2018-10-02 155 mm[Hg] Location: LUE; [facility] 15:26:00 Position: Sitting BP Diastolic 2018-10-02 88 mm[Hg] Location: LUE; [facility] 15:26:00 Position: Sitting Height 2018-10-02 75 [...] [facility] 10:25:00 Systolic (mm Hg) 2018-07-10 [facility] rmann 00:00:00 Diastolic (mm Hg) 2018-07-10 [facility] ermann 00:00:00 Respitory Rate 2018-07-10 [facility] faina 00:00:00 Systolic (mm Hg) 2018-07-09 [facility] rmann 23:45:00 Diastolic (mm Hg) 2018-07-09 [facility] 23:45:00 Respitory Rate 2018-07-09 [facility] 23:45:00 Systolic (mm Hg) 2018-07-09 [facility] r[facility] 23:30:00 Diastolic (mm Hg) 2018-07-09 [facility] H ermann 23:30:00 Respitory Rate 2018-07-09 [facility] [...] BP Systolic 2018-06-03 136 mm[Hg] Location: LUE; [facility] 14:09:00 Position: Sitting BP Diastolic 2018-06-03 75 mm[Hg] Location: [place]; [facility] 14:09:00 Position: Sitting Height 2018-06-03 75 [...] Magdalene veliz (F) 10:56:00 Weight 2018-05-16 Magdalene Avitia n 10:56:00 Procedures Procedure Date / Time Performing Clinician Source Performed REFERRAL- REQUEST/RESPONSE 2021-03-30 05:01:00 Doctor Unassigned , [facility] Myringotomy 2020-10-10 00:00:00 [facility] Her jones [U] XRAY KNEE 4 OR MORE 2018-07-24 00:00:00 [facility] VWS RIGHT [id number] Emg/Ncv 2018-06-20 00:00:00 [facility] - Sleep 2018-06-03 00:00:00 [facility] Study Split Night Ulnar nerve decompression 2015-08-12 00:00:00 Me morial [place] [facility] of wisdom tooth Memor ial [place] [facility] History of Cubital tunnel [facility] repair History of Wrist [facility] Plan of Care Planned Activity Planned Date Details Comments Source Future Scheduled Test 2022-09-18 INFLUENZA VACCINE [facility] 11:55:25 [code = INFLUENZA VACCINE] Future Scheduled Test 2022-09-18 COVID-19 VACCINE [facility] 11:55:25 (#1) [code = COVID-19 VACCINE (#1)] Future Scheduled Test 2022-09-07 COVID-19 VACCINE [facility] 19:13:43 (#1) [code = COVID-19 VACCINE (#1)] Future Scheduled Test 2022-09-07 INFLUENZA VACCINE [facility] 19:13:43 [code = INFLUENZA VACCINE] Future Scheduled Test 2022-07-28 COVID-19 VACCINE [facility] 16:56:35 (#1) [code = COVID-19 VACCINE (#1)] Future Scheduled Test 2022-07-28 INFLUENZA VACCINE [facility] 16:56:35 [code = INFLUENZA VACCINE] Future Scheduled Test 2022-07-28 COVID-19 VACCINE [facility] 16:56:35 (#1) [code = COVID-19 VACCINE (#1)] Future Scheduled Test 2022-07-28 INFLUENZA VACCINE [facility] 16:56:35 [code = INFLUENZA VACCINE] Future Scheduled Test 2022-04-13 HEPATITIS B [facility] 21:38:54 VACCINES (1 of 3 - 3-dose series) [code = HEPATITIS B VACCINES (1 of 3 - 3-dose series)] Future Scheduled Test 2022-04-13 COVID-19 VACCINE [facility] 21:38:54 (#1) [code = COVID-19 VACCINE (#1)] Future Scheduled Test 2022-04-13 INFLUENZA VACCINE [facility] 21:38:54 [code = INFLUENZA VACCINE] Future Scheduled Test 2022-04-13 HEPATITIS B [facility] 21:38:54 VACCINES (1 of 3 - 3-dose series) [code = HEPATITIS B VACCINES (1 of 3 - 3-dose series)] Future Scheduled Test 2022-04-13 COVID-19 VACCINE [facility] 21:38:54 (#1) [code = COVID-19 VACCINE (#1)] Future Scheduled Test 2022-04-13 INFLUENZA VACCINE [facility] 21:38:54 [code = INFLUENZA VACCINE] Future Scheduled Test 2022-04-13 HEPATITIS B [facility] 21:38:54 VACCINES (1 of 3 - 3-dose series) [code = HEPATITIS B VACCINES (1 of 3 - 3-dose series)] Future Scheduled Test 2022-04-13 COVID-19 VACCINE [facility] 21:38:54 (#1) [code = COVID-19 VACCINE (#1)] Future Scheduled Test 2022-04-13 INFLUENZA VACCINE [facility] 21:38:54 [code = INFLUENZA VACCINE] Future Scheduled Test 2022-04-13 HEPATITIS B [facility] 21:38:54 VACCINES (1 of 3 - 3-dose series) [code = HEPATITIS B VACCINES (1 of 3 - 3-dose series)] Future Scheduled Test 2022-04-13 COVID-19 VACCINE [facility] 21:38:54 (#1) [code = COVID-19 VACCINE (#1)] Future Scheduled Test 2022-04-13 INFLUENZA VACCINE [facility] 21:38:54 [code = INFLUENZA VACCINE] Future Scheduled Test 2022-04-13 HEPATITIS B [facility] 21:38:54 VACCINES (1 of 3 - 3-dose series) [code = HEPATITIS B VACCINES (1 of 3 - 3-dose series)] Future Scheduled Test 2022-04-13 COVID-19 VACCINE [facility] 21:38:54 (#1) [code = COVID-19 VACCINE (#1)] Future Scheduled Test 2022-04-13 INFLUENZA VACCINE [facility] 21:38:54 [code = INFLUENZA VACCINE] Future Scheduled Test 2022-04-13 HEPATITIS B [facility] 21:38:54 VACCINES (1 of 3 - 3-dose series) [code = HEPATITIS B VACCINES (1 of 3 - 3-dose series)] Future Scheduled Test 2022-04-13 COVID-19 VACCINE [facility] 21:38:54 (#1) [code = COVID-19 VACCINE (#1)] Future Scheduled Test 2022-04-13 INFLUENZA VACCINE [facility] 21:38:54 [code = INFLUENZA VACCINE] Diagnostic Test 2018-06-20 Emg/Ncv [code [facility] 00:00:00 Emg/Ncv] Diagnostic Test 2018-06-20 Emg/Ncv [code = [facility] Pending 00:00:00 Emg/Ncv] Future Scheduled Test COVID-19 VACCINE [facility] (1) [code = COVID-19 VACCINE (1)] Future Scheduled Test Hepatitis C [facility] screening (procedure) [code = 955963419] Future Scheduled Test INFLUENZA VACCINE [facility] [code = INFLUENZA VACCINE] Encounters Start End Encounter Admission Attending Care Care Encounter Source Date/Time Date/Time Type Type Clinicians Facility Department ID 2022-09-04 Outpatient [facility] [id number] [place] 09:48:26 [id number] [facility] 2022-09-03 Outpatient [facility] [id number] [place] 10:22:47 [id number] [facility] 2022-08-15 Outpatient [facility] [id number] [place] 08:54:00 [id number] [facility] 2022-07-30 Outpatient [facility] [id number] [place] 09:03:26 [id number] [facility] 2022-07-27 Outpatient [facility] [id number] [place] 09:39:00 [id number] [facility] 2022-06-22 Outpatient Vazquez, STLMLC STLMLC [id number] Common 11:03:01 John [id number] [facility] 2022-06-20 Outpatient [facility] [id number] [place] 15:53:00 [id number] [facility] 2022-06-20 Outpatient Vazquez, STLMLC STLMLC [id number] [facility] 09:33:01 John [id number] [facility] 2022-06-19 Outpatient [facility] [id number] [place] 15:00:31 [id number] [facility] 2022-06-12 Outpatient [facility] [id number] [place] 09:35:34 [id number] [facility] 2022-05-25 Outpatient [facility] [id number] [place] 13:39:31 [id number] [facility] 2021-10-25 Outpatient MIGUEL ANGEL, [facility] A[facility] [address] [facility] 11:23:00 [place] 2021-09-28 Outpatient DEVON, NOAH [facility] [id number] [place] 16:10:44 [facility] 2021-09-06 Outpatient Vazquez, STLMLC STLMLC [id number] [facility] 12:12:10 John [id number] [facility] 2021-09-06 Outpatient Vazquez, STLMLC STLMLC [id number] [facility] 12:10:54 John [id number] [facility] 2021-09-06 Outpatient Vazquez, STLMLC STLMLC [id number] [facility] 12:09:52 John [id number] [facility] 2021-09-06 Outpatient Vazquez, STLMLC STLMLC [id number] Common 11:54:05 John [id number] [facility] 2021-09-06 Outpatient Vazquez, STLMLC STLMLC [id number] Common 11:06:57 John [id number] [facility] 2021-09-06 Outpatient Vazquez, STLMLC STLMLC [id number] Common 11:06:47 John [id number] [facility] 2021-04-18 Outpatient PATKI, [facility] [id number] [place] 14:45:53 JUNIOR [place] h 2022-09-26 2022-09-26 [facility]SEL[facility] [facility] [id number] [place] 13:15:00 13:15:00 MANASA [facility] 2022-08-16 2022-08-16 Outpatient TUCKER, [facility] [id number] [place] 14:30:00 14:30:00 [facility]-01 2022-08-01 Outpatient TUCKER, [facility] [id number] [place] 11:00:00 11:00:00 [facility] 2022-07-27 2022-07-27 Office Alyse, [facility] 6400 1.2.840.114 [id number] [place] 08:30:00 09:48:28 Visit Manasa KING 350.1.13.58 [facility] 9.2.7.2.686 [id number] 5 2022-07-25 2022-07-25 (TEL) STLMLC STLMLC [id number] Co mmon 00:00:00 00:00:00 [facility] 2022-06-22 2022-06-22 (TEL) STLMLC STLMLC [id number] Co mmon 00:00:00 00:00:00 [facility] 2022-06-22 2022-06-22 OFFICE STLMLC STLMLC [id number] Co mmon 00:00:00 00:00:00 VISIT [facility] LEVEL 4 [facility] 2022-06-20 2022-06-20 Outpatient DAY, NOAH [facility] [id number] [place] 14:00:00 14:00:00 Health 2022-06-13 2022-06-13 Outpatient DAY, NOAH [facility] [id number] [place] 13:15:00 13:15:00 Health 2022-06-06 2022-06-06 (TEL) STLMLC STLMLC [id number] Co mmon 00:00:00 00:00:00 [facility] 2022-06-06 2022-06-06 (TEL) STLMLC STLMLC [id number] Co mmon 00:00:00 00:00:00 [facility] 2022-05-17 2022-05-19 Outpatient E DAY, NOAH [facility] [address] [facility] 10:13:00 11:40:00 2022-05-16 2022-05-16 Office DAY, NOAH [facility] 6400 1.2.840.114 1 [id number] [place] 15:45:00 15:45:[address] 350.1.13.58 Health 9.2.7.2.686 [id number] 0 2022-05-12 2022-05-12 Emergency E ROBERTS, [facility] [address] [facility] 03:16:00 21:21:00 SONIA 2022-03-21 2022-03-21 Outpatient DAY, NOAH [facility] [id number] [place] 15:00:00 15:00:00 Health 2022-03-14 2022-03-14 Telephone Day, Noah [facility] 6400 1.2.840.114 [id number] [place] 00:00:00 00:00:[address] 350.1.13.58 Health 9.2.7.2.686 [id number] 0 2022-03-14 2022-03-14 Telephone Patkenji, [facility] 6400 1.2.840.114 [id number] [place] 00:00:00 00:00:[address] 350.1.13.58 Health 9.2.7.2.686 [id number] 3 2022-03-14 2022-03-14 Telephone Day, Noah [facility] 6400 1.2.840.114 [id number] [place] 00:00:00 00:00:[address] 350.1.13.58 Health 9.2.7.2.686 [id number] 0 2022-03-13 2022-03-13 Telephone Day, Noah [facility] 6400 1.2.840.114 [id number] [place] 00:00:00 00:00:[address] 350.1.13.58 Health 9.2.7.2.686 [id number] 0 2022-01-01 2022-01-01 Telephone Day, Noah [facility] 6400 1.2.840.114 [id number] [place] 00:00:00 00:00:[address] 350.1.13.58 Health 9.2.7.2.686 [id number] 0 2021-12-28 2021-12-28 Telephone Day, Noah [facility] 6400 1.2.840.114 [id number] [place] 00:00:00 00:00:[address] 350.1.13.58 Health 9.2.7.2.686 [id number] 0 2021-12-06 2021-12-06 Telephone Day, Noah [facility] 6400 1.2.840.114 [id number] [place] 00:00:00 00:00:[address] 350.1.13.58 Health 9.2.7.2.686 [id number] 0 2021-11-27 2021-11-27 Telephone Day, Noah [facility] 6400 1.2.840.114 [id number] [place] 00:00:00 00:00:[address] 350.1.13.58 Health 9.2.7.2.686 [id number] 0 2021-11-01 2021-11-01 Telephone Day, Noah [facility]TP 6400 1.2.840.114 [id number] [place] 00:00:00 00:00:[address] 350.1.13.58 Health 9.2.7.2.686 [id number] 0 2021-10-30 2021-10-30 Telephone Rae Naranjo UTP 1.2.840 .114 [id number] [place] 00:00:00 00:00:00 Rae NaranjoDELFINO 350.1.13.58 Health MEDICAL 9.2.7.2.686 BUILDING [id number] 1 2021-10-27 2021-10-27 Telephone Day, Noah [facility] 6410 1.2.840.114 [id number] [place] 00:00:00 00:00:[address] 350.1.13.58 Health 9.2.7.2.686 [id number] 8 2021-10-252021-10-26 Outpt Diag nullFlavo [facility] [id number] [facility] 18:11:00 04:59:00 Services r Outpatient 01 l Imaging Davidson [place] 2021-10-24 2021-10-24 Telephone Layne Sánchez UTP 6400 1.2.840.1 14 [id number] [place] 00:00:00 00:00:[address]ánchezN ST 350.1.13.58 Health 9.2.7.2.686 [id number] 3 2021-10-24 2021-10-24 Telephone Day, Noah UTP 6400 1.2.840.114 [id number] [place] 00:00:00 00:00:[address] 350.1.13.58 Health 9.2.7.2.686 [id number] 0 2021-10-20 2021-10-20 Office Miguel Anegl, UTP 1.2.840.114 [id number] [place] 13:30:00 14:18:52 Visit Geronimo MENCHACA 350.1.13.58 H [facility] 9.2.7.2.686 [facility] [id number] 1 2021-10-18 2021-10-19 Outpt Diag nullFlavo [facility] [id number] [facility] 17:43:00 05:59:00 Services r Outpatient 00 l Imaging Davidson Cedeño 2021-10-18 2021-10-18 Office Day, Noah [facility]TP 6400 1.2.840.114 1 [id number] [place] 10:00:00 10:15:[address] 350.1.13.58 Health 9.2.7.2.686 [id number] 0 2021-10-18 2021-10-18 Telephone Day, Noah UTP 6400 1.2.840.114 [id number] [place] 00:00:00 00:00:[address] 350.1.13.58 Health 9.2.7.2.686 [id number] 0 2021-10-18 2021-10-18 Telephone Day, Noah [facility]TP 6400 1.2.840.114 [id number] [place] 00:00:00 00:00:[address] 350.1.13.58 Health 9.2.7.2.686 [id number] 0 2021-10-17 2021-10-17 Telephone Day, Noah [facility]TP 6400 1.2.840.114 [id number] [place] 00:00:00 00:00:[address] 350.1.13.58 Health 9.2.7.2.686 [id number] 0 2021-10-13 2021-10-13 Telephone Day, Noah [facility]TP 6400 1.2.840.114 [id number] [place] 00:00:00 00:00:[address] 350.1.13.58 Health 9.2.7.2.686 [id number] 0 2021-10-08 2021-10-10 Inpatient [facility] [id number] Memoria 23:43:00 15:48:00 [facility] 58 [facility] 2021-10-08 2021-10-10 Inpatient E DAY, NOAH [facility] [address] [facility] 19:58:00 09:48:00 2021-10-03 2021-10-05 Inpatient [facility] [id number] Memoria 11:15:00 16:21:00 [facility] 05 [facility] 2021-10-03 2021-10-05 Inpatient DAY, NOAH [facility] [address] [facility] 05:15:00 10:21:00 2021-10-04 2021-10-04 Telephone Day, Noah DAWSON 6400 1.2.840.114 [id number] [place] 00:00:00 00:00:[address] 350.1.13.58 Health 9.2.7.2.686 [id number] 0 2021-09-28 2021-09-28 Telephone Day, Noah [facility] 6400 1.2.840.114 [id number] [place] 00:00:00 00:00:[address] 350.1.13.58 Health 9.2.7.2.686 [id number] 0 2021-09-28 2021-09-28 Telephone Dorothea Delgadillo [facility]TP 6400 1.2.84 0.114 [id number] [place] 00:00:00 00:00:[address] 350.1.13.58 Health 9.2.7.2.686 [id number] 3 2021-09-22 2021-09-22 Telephone Day, Noah [facility] 6400 1.2.840.114 [id number] [place] 00:00:00 00:00:[address] 350.1.13.58 Health 9.2.7.2.686 [id number] 0 2021-09-20 2021-09-20 Telephone Day, Noah [facility] 6400 1.2.840.114 [id number] [place] 00:00:00 00:00:[address] 350.1.13.58 Health 9.2.7.2.686 [id number] 7 2021-09-18 2021-09-18 Telephone Amelia Cameron [facility]TP 6400 1.2.840.11 4 [id number] [place] 00:00:00 00:00:[address] 350.1.13.58 Health 9.2.7.2.686 [id number] 5 2021-09-07 2021-09-07 Office Stacy, [facility] 6400 1.2.840.114 [id number] [place] 13:30:00 14:35:[address] 350.1.13.58 Health 9.2.7.2.686 [id number] 3 2021-09-07 2021-09-07 Telephone Patkenji, [facility]TP 6400 1.2.840.114 134 [id number] [place] 00:00:00 00:00:[address] 350.1.13.58 Health 9.2.7.2.686 [id number] 3 2021-09-05 2021-09-05 Telephone Stacy, [facility] 6400 1.2.840.114 [id number] [place] 00:00:00 00:00:[address] 350.1.13.58 Health 9.2.7.2.686 [id number] 3 2021-09-03 2021-09-03 Telephone Stacy, EUNICE 6400 1.2.840.114 [id number] [place] 00:00:00 00:00:[address] 350.1.13.58 Health 9.2.7.2.686 [id number] 3 2021-08-02 2021-08-02 Telephone Stacy, EUNICE 6400 1.2.840.114 [id number] [place] 00:00:00 00:00:[address] 350.1.13.58 Health 9.2.7.2.686 [id number] 3 2021-05-18 2021-05-18 Orders Brii Howard [facility] 6400 1.2.840.114 [id number] [place] 00:00:00 00:00:[address] 350.1.13.58 Health 9.2.7.2.686 [id number] 3 2021-05-18 2021-05-18 Orders Stacy [facility] 6400 1.2.840.114 [id number] [place] 00:00:00 00:00:[address] 350.1.13.58 Health 9.2.7.2.686 [id number] 3 2021-05-15 2021-05-15 Telephone Stacy, EUNICE 6400 1.2.840.114 [id number] [place] 00:00:00 00:00:[address] 350.1.13.58 Health 9.2.7.2.686 [id number] 3 2021-05-11 2021-05-11 Emergency [facility] [id number] [facility] 00:[facility] 14:08:[address] 2021-05-11 2021-05-11 (TEL) STLMLC STLMLC [id number] Co mmon 00:00:00 00:00:00 [facility] 2021-05-09 2021-05-09 Telephone Stacy, UTP 6400 1.2.840.114 [id number] [place] 00:00:00 00:00:[address] 350.1.13.58 Health 9.2.7.2.686 [id number] 3 2021-05-08 2021-05-08 Telephone Patki, [facility]TP 6400 1.2.840.114 127 [id number] [place] 00:00:00 00:00:[address] 350.1.13.58 Health 9.2.7.2.686 [id number] 3 2021-05-08 2021-05-08 Telephone Patki, [facility]TP 6400 1.2.840.114 127 [id number] UT 00:00:00 00:00:[address] 350.1.13.58 Health 9.2.7.2.686 [id number] 3 2021-05-08 2021-05-08 Telephone Patki, [facility] 6400 1.2.840.114 127 [id number] UT 00:00:00 00:00:[address] 350.1.13.58 Health 9.2.7.2.686 [id number] 3 2021-05-03 2021-05-03 Office Patkenji, [facility]TP 6400 1.2.840.114 [id number] [place] 13:38:06 14:42:[address] 350.1.13.58 Health 9.2.7.2.686 [id number] 3 2021-05-03 2021-05-03 Office Patki, [facility]TP 6400 1.2.840.114 [id number] UT 13:38:06 14:42:[address] 350.1.13.58 Health 9.2.7.2.686 [id number] 3 2021-04-18 2021-04-18 Office Patki, [facility] 6400 1.2.840.114 [id number] [place] 13:09:45 14:44:[address] 350.1.13.58 Health 9.2.7.2.686 [id number] 3 2021-04-18 2021-04-18 Office EUNICE Kumar 6400 1.2.840.114 [id number] [place] 13:09:45 14:44:18 Visit Junior KING 350.1.13.58 [facility] 9.2.7.2.686 [id number] 3 2021-04-06 2021-04-06 OFFICE STLMLC STLMLC [id number] Co mmon 00:00:00 00:00:00 VISIT EST Spir it PT LEVEL 3 - [facility] 2021-04-06 2021-04-06 (TEL) STLMLC STLMLC [id number] Co mmon 00:00:00 00:00:00 [facility] 2021-03-31 2021-03-31 (TEL) STLMLC STLMLC [id number] Co mmon 00:00:00 00:00:00 [facility] 2021-03-30 2021-03-30 Orders Doctor AICHA 1.2.840.114 [id number] Univers 00:00:00 00:00:00 Only Unassigned, ABDULKADIR 350.1.13.10 ity Brantley [facility] 4.2.7.2.686 Norberto as [id number] [address] 2021-03-30 2021-03-30 Orders Doctor AICHA 1.2.840.114 [id number] 00:00:00 00:00:00 Only Unassigned, ABDULKADIR 350.1.13.10 Brantley [facility] 4.2.7.2.686 [id number] [facility] 2021-03-21 2021-03-21 Ancillary 1, Gal UNIVERSIT 1.2.840.114 [id number] 14:21:34 15:15:15 Visit Audio Sound Y 350.1.13.10 [address] 4.2.7.2.686 [facility] [id number] BLDG. 141 2021-03-21 2021-03-21 Outpatient R RENZO [facility] [id number] [facility] 13:45:00 13:45:00 FABY ity [facility] 2021-01-17 2021-01-17 Emergency X BARBARA [facility] ERT [id number] Univers 19:28:00 19:28:00 LAURENCE ity [facility] 2020-11-21 2020-11-21 Emergency X [facility] ERT [id number] Univers 15:51:00 15:51:00 ity [facility] 2020-07-20 2020-07-20 (TEL) STLMLC STLMLC [id number] Co mmon 00:00:00 00:00:00 Spirit - [facility] 2020-07-12 2020-07-12 OFFICE STLMLC STLMLC [id number] Co mmon 00:00:00 00:00:00 VISIT EST Spir it PT LEVEL 3 [facility] 2020-05-23 2020-05-23 OFFICE STLMLC STLMLC [id number] Co mmon 00:00:00 00:00:00 VISIT EST Spir it PT LEVEL 3 [facility] 2020-02-24 2020-02-24 Outpatient [facility] [id number] Common 14:42:00 14:42:[address] [facility] 2020-02-22 2020-02-22 Outpatient [facility] 31 [id number] Common 13:51:00 13:51:[address] [facility] 2019-12-10 2019-12-10 Outpatient [facility] [id number] Common 15:39:00 15:39:[address] [facility] 2019-12-08 2019-12-08 Outpatient [facility] [id number] Common 13:40:00 13:40:[address] [facility] 2019-12-07 2019-12-07 Outpatient [facility] 30 [id number] Common 12:05:00 12:05:[address] [facility] 2019-11-16 2019-11-16 Outpatient [facility] [id number] Common 11:00:00 11:00:00 t Bone Bone and Spiri t and Joint [facility] - [facility] 2019-10-21 2019-10-21 Emergency X Blaire PADRON [facility] ERT [id number] Univers 11:24:16 14:51:00 ity of [facility] 2019-09-29 2019-09-29 [facility] [id number] Common 09:21:00 09:21:00 t Bone Bone and Spiri t and Joint [facility] - [facility] of 2019-09-21 2019-09-21 Outpatient [facility] [id number] Common 14:00:00 14:00:00 t Bone Bone and Spiri t and Joint [facility] - [facility] 2019-03-13 2019-03-13 AppointEUNICE Serra [facility] [id number] [place] 09:00:00 09:00:00 t; Lesa RODRIGUEZ Ph savannah Roberto M.D. 2018-10-02 2018-10-02 AppointEUNICE Ibrahim [facility] [id number] [place] 15:00:00 15:00:00 t; Asher JONES i, M.D. ans POURAN, M.D. 2018-09-25 2018-09-25 Appointritu CEJA [facility] [id number] [place] 10:30:00 10:30:00 t; BRANT CEJA NP Health and Valery GUO, SHANE [facility] 2018-09-22 2018-09-22 AppointEUNICE Ibrahim [facility] [id number] [place] 15:30:00 15:30:00 t; Asher JONES i, M.D. ans POURAN, M.D. 2018-08-22 2018-08-22 AppointEUNICE Paul [facility] [id number] UT 09:30:00 09:30:00 t; Lesa BRYANT Ph savannah Rios M.D. 2018-07-29 2018-07-29 AppointEUNICE Paul [facility] [id number] [place] 14:30:00 14:30:00 t; Lesa BRYANT Ph savannah Rios M.D. 2018-07-25 2018-07-25 [facility] [id number] [place] 10:30:00 10:30:00 t; [facility]a [facility] 2018-07-22 2018-07-22 [facility] [id number] [place] 11:15:00 11:15:00 t; Lesa BRYANT [facility] Valery MUNOZ, Orthopedics savannah BRYANT M.D. 2018-07-15 2018-07-15 [facility] [id number] [place] 10:30:00 10:30:00 t; Lesa BRYANT [facility] Valery MUNOZ, Orthopedics savannah BRYANT M.D. 2018-07-09 2018-07-10 [facility] [id number] Memoria 18:05:00 00:00:00 Surgery r [place] 03 l [place] Kelly 2018-07-09 2018-07-09 [facility] [id number] [place] 13:00:00 13:00:00 t; Lesa BRYANT savannah Rios M.D. 2018-06-30 2018-06-30 [facility] [id number] [place] 10:15:00 10:15:00 t; Lesa BRYANT [facility] Valery MUNOZ Orthopedics savannah BRYANT M.D. 2018-06-24 2018-06-24 [facility] 4547 [id number] Memoria 00:15:00 05:59:00 r Uehling 02 l [place] Kelly 2018-06-20 2018-06-20 [facility] [id number] [place] 13:40:00 13:40:00 t; SHANE MONROE [facility] leisa ROTH, Orthopedics a boyd MONROE NP 2018-06-19 2018-06-19 [facility] [id number] [place] 08:15:00 08:15:00 t; SERJIO HUERTA D.O. Physici KERRY, ans D.O. 2018-06-17 2018-06-17 Appointmen TAMMY [facility] [id number] [place] 15:45:00 15:45:00 t; Lesa BRYANT [facility] Valery MUNOZ Orthopedics savannah BRYANT M.D. 2018-06-03 2018-06-03 Appointmen EUNICE HUERTA [id number] UT 13:45:00 13:45:00 t; SERJIO HUERTA D.O. [facility] savannah Vora D.O. 2018-05-16 2018-05-16 Emergency nullFlavo [facility] 59835 [id number] Memoria 10:52:00 13:34:00 r Uehling 01 l [place] Kelly nn Results Test Description Test Time Test Comments Results Result Comments Source CHEM PANEL 2021-10-09 21:33:00 Test Item Value Reference Range Interpretation Comme nts Glucose Lvl (test code = Glucose Lvl) 114 70-99 [facility] [id number] 21:33:00 Test Item Value Reference Range Interpretation Comments BUN (test code = BUN) 14 -22 [facility] [id number] 21:33:00 Test Item Value Reference Range Interpretation Comments Creatinine Lvl (test code = Creatinine 1.36 0.50-1.40 Lvl) [facility] [id number] 21:33:00 Test Item Value Reference Range Interpretation Comments Sodium Lvl (test code = Sodium Lvl) 139 135-145 [facility] [id number] 21:33:00 Test Item Value Reference Range Interpretation Comments Potassium Lvl (test code = Potassium 4.6 3.5-5.1 Lvl) [facility] [id number] 21:33:00 Test Item Value Reference Range Interpretation Comments Chloride Lvl (test code = Chloride Lvl) 104 95-109 [facility] [id number] 21:33:00 Test Item Value Reference Range Interpretation Comments CO2 (test code = CO2) 29 24-32 [facility] [id number] 21:33:00 Test Item Value Reference Range Interpretation Comments Calcium Lvl (test code = Calcium Lvl) 9.3 8.5-10.5 [facility] [id number] 21:33:00 Test Item Value Reference Range Interpretation Comments AGAP (test code = AGAP) 10.6 10.0-20.0 [facility]2022-02-28 21:33:00 Test Item Value Reference Range Interpretation Comments eGFR (test code = eGFR) 64 [facility]FFDUIFRHO3901-66-16 21:33:00 Test Item Value Reference Range Interpretation Comments WBC (test code = WBC) 5.9 3.7-10.4 [facility] [id number] 21:33:00 Test Item Value Reference Range Interpretation Comments RBC (test code = RBC) 4.85 4.70-6.10 [place] 700332-02-28 21:33:00 Test Item Value Reference Range Interpretation Comments Hgb (test code = Hgb) 13.7 14.0-18.0 [facility] SystemMbwsnihZEPXVTEALE9209-28-87 21:33:00 Test Item Value Reference Range Interpretation Comments Hct (test code = Hct) 41.5 42.0-54.0 [facility] SystemHpexhqoHSRCAOLJIJ1802-69-43 21:33:00 Test Item Value Reference Range Interpretation Comments MCV (test code = MCV) 85.4 80.0-94.0 [facility] SystemTvzodjsGERQEGSHZV0178-84-63 21:33:00 Test Item Value Reference Range Interpretation Comments MCH (test code = MCH) 28.2 pg 27.0-31.0 [facility] SystemEjjlnidCZHCALRNVF4229-36-80 21:33:00 Test Item Value Reference Range Interpretation Comments MCHC (test code = MCHC) 33.0 32.0-36.0 [facility] SystemIxjtehxCPEZEXCYJW7969-57-45 21:33:00 Test Item Value Reference Range Interpretation Comments RDW (test code = RDW) 14.0 11.5-14.5 [place] [id number] 21:33:00 Test Item Value Reference Range Interpretation Comments Platelet (test code = Platelet) 186 133-450 [facility] SystemQeshozpCSQGHKWNMJ6988-99-87 21:33:00 Test Item Value Reference Range Interpretation Comments MPV (test code = MPV) 9.1 7.4-10.4 [place] [id number] 21:33:00 Test Item Value Reference Range Interpretation Comments PT (test code = PT) 12.4 s 12.0-14.7 [place] 700332-02-28 21:33:00 Test Item Value Reference Range Interpretation Comments INR (test code = INR) 0.93 1 0.85-1.17 [place] [address]00-02-28 21:33:00 Test Item Value Reference Range Interpretation Comments PTT (test code = PTT) 27.8 s 22.9-35.8 [place] 700332-02-28 21:33:00 Test Item Value Reference Range Interpretation Comments Segs (test code = Segs) 73.9 45.0-75.0 [place] [address]-02-28 21:33:00 Test Item Value Reference Range Interpretation Comments Lymphocytes (test code = Lymphocytes) 18.2 20.0-40.0 [place] [address]-02-28 21:33:00 Test Item Value Reference Range Interpretation Comments Monocytes (test code = Monocytes) 3.4 2.0-12.0 [place] [address]-02-28 21:33:00 Test Item Value Reference Range Interpretation Comments Eosinophils (test code = 4.2 See_Comment [A utomated message] The Eosinophils) system which ge nerated this result tra nsmitted reference range : <=4.0. The reference r caleb was not used to int erpret this result as normal/abnormal . [place] [address]-02-28 21:33:00 Test Item Value Reference Range Interpretation Comments Basophils (test code = 0.3 See_Comment [Aut omated message] The Basophils) system which ge nerated this result tra nsmitted reference range : <=1.0. The reference r caleb was not used to int erpret this result as normal/abnormal . [place] 700332-02-28 21:33:00 Test Item Value Reference Range Interpretation Comments Neutrophils # (test code = Neutrophils 4.4 1.5-8.1 #) [place] [address]-02-28 21:33:00 Test Item Value Reference Range Interpretation Comments Lymphocytes # (test code = Lymphocytes 1.1 1.0-5.5 #) [place] 700332-02-28 21:33:00 Test Item Value Reference Range Interpretation Comments Monocytes # (test code 0.2 See_Comment [Aut omated message] The = Monocytes #) system which generated this result tra nsmitted reference range : <=0.8. The reference r caleb was not used to int erpret this result as normal/abnormal . [facility]akvdlpJVPNNUICAS7452-47-19 21:33:00 Test Item Value Reference Range Interpretation Comments Eosinophils # (test code 0.2 See_Comment [A utomated message] The = Eosinophils #) system whic h generated this result tra nsmitted reference range : <=0.5. The reference r caleb was not used to int erpret this result as normal/abnormal . [facility]2022-02-28 20:31:00 Test Item Value Reference Range Interpretation Comments Glucose CSF (test code = Glucose CSF) 77 45-80 [facility]2022-02-28 20:31:00 Test Item Value Reference Range Interpretation Comments Protein CSF (test code = Protein CSF) 33 15-45 [facility]2022-02-28 20:31:00 Test Item Value Reference Range Interpretation Comments Tube Num CSF (test xxxxxxx (10/09/21 2:31 code = Tube Num CSF) PM) [facility]2022-02-28 20:31:00 Test Item Value Reference Range Interpretation Comments Color CSF (test code Colorless (10/09/21 2:31 = Color CSF) PM) [facility]2022-02-28 20:31:00 Test Item Value Reference Range Interpretation Comments Clarity CSF (test code = Clear (10/09/21 2:31 Clarity CSF) PM) [facility]2022-02-28 20:31:00 Test Item Value Reference Range Interpretation Comments Supernat CSF (test Colorless (10/09/21 2:31 code = Supernat CSF) PM) [place] [id number] 20:31:00 Test Item Value Reference Range Interpretation Comments Nucleated Cells CSF 9 See_Comment [Automa leydi message] The (test code = Nucleated syste m which generated Cells CSF) this result tra nsmitted reference range : <=53. The reference r caleb was not used to int erpret this result as normal/abnormal . [facility] [id number] 20:31:00 Test Item Value Reference Range Interpretation Comments RBC CSF (test code = 280 See_Comment [Autom ated message] The RBC CSF) system which ge nerated this result transmit leydi reference range : <=03. The reference range was not used to interpr et this result as krishna l/abnormal. [facility]2022-02-28 20:31:00 Test Item Value Reference Range Interpretation Comments Neutrophils CSF (test 64 See_Comment [Auto mated message] The code = Neutrophils CSF) syst em which generated this result tra nsmitted reference range : <=6. The reference r caleb was not used to int erpret this result as normal/abnormal . [facility] [id number] 20:31:00 Test Item Value Reference Range Interpretation Comments Lymph CSF (test code = Lymph CSF) 30 40-80 [facility] [id number] 20:31:00 Test Item Value Reference Range Interpretation Comments Monocyte CSF (test code = Monocyte CSF) 6 15-45 [facility] [employer]: [id number] 20:31:00 Test Item Value Reference Range Interpretation Comments Culture: Anaerobic No Anaerobes Isolated (test code = Culture: After 3 Days Anaerobic) [facility]co[facility]udd[facility]™ InteractiveGram Stain [id number] 20:31:00 Test Item Value Reference Range Interpretation Comments Gram Stain Report Few Wbc'S; No Organisms (test code = Gram Seen Stain Report) [facility] CSF w/Gram [id number] 20:31:00 Test Item Value Reference Range Interpretation Comments Culture: CSF w/Gram 72 Hour Report - No Stain (test code = Growth, Holding Culture: CSF w/Gram Stain) [facility] [id number] 08:57:00 Test Item Value Reference Range Interpretation Comments Glucose Lvl (test code = Glucose Lvl) 109 70-99 [facility] [id number] 08:57:00 Test Item Value Reference Range Interpretation Comments BUN (test code = BUN) 17 7-22 [facility] [id number] 08:57:00 Test Item Value Reference Range Interpretation Comments Creatinine Lvl (test code = Creatinine 1.28 0.50-1.40 Lvl) [facility] [id number] 08:57:00 Test Item Value Reference Range Interpretation Comments Sodium Lvl (test code = Sodium Lvl) 140 135-145 [facility] [id number] 08:57:00 Test Item Value Reference Range Interpretation Comments Potassium Lvl (test code = Potassium 3.9 3.5-5.1 Lvl) [place] 889062-02-28 08:57:00 Test Item Value Reference Range Interpretation Comments Chloride Lvl (test code = Chloride Lvl) 108 95-109 [place] 889062-02-28 08:57:00 Test Item Value Reference Range Interpretation Comments CO2 (test code = CO2) 27 24-32 [place] 889062-02-28 08:57:00 Test Item Value Reference Range Interpretation Comments Calcium Lvl (test code = Calcium Lvl) 9.5 8.5-10.5 [place] 889062-02-28 08:57:00 Test Item Value Reference Range Interpretation Comments AGAP (test code = AGAP) 8.9 10.0-20.0 [place] 889062-02-28 08:57:00 Test Item Value Reference Range Interpretation Comments eGFR (test code = eGFR) 69 [place] 700332-02-28 08:57:00 Test Item Value Reference Range Interpretation Comments WBC (test code = WBC) 8.5 3.7-10.4 [place] 700332-02-28 08:57:00 Test Item Value Reference Range Interpretation Comments RBC (test code = RBC) 4.69 4.70-6.10 [place] 700332-02-28 08:57:00 Test Item Value Reference Range Interpretation Comments Hgb (test code = Hgb) 13.3 14.0-18.0 [place] 700332-02-28 08:57:00 Test Item Value Reference Range Interpretation Comments Hct (test code = Hct) 40.4 42.0-54.0 [place] [address]-02-28 08:57:00 Test Item Value Reference Range Interpretation Comments MCV (test code = MCV) 86.1 80.0-94.0 [place] 700332-02-28 08:57:00 Test Item Value Reference Range Interpretation Comments MCH (test code = MCH) 28.3 pg 27.0-31.0 [place] 700332-02-28 08:57:00 Test Item Value Reference Range Interpretation Comments MCHC (test code = MCHC) 32.9 32.0-36.0 [place] [address]-02-28 08:57:00 Test Item Value Reference Range Interpretation Comments RDW (test code = RDW) 14.1 11.5-14.5 [place] [address]-02-28 08:57:00 Test Item Value Reference Range Interpretation Comments Platelet (test code = Platelet) 192 133-450 [place] 700332-02-28 08:57:00 Test Item Value Reference Range Interpretation Comments MPV (test code = MPV) 9.2 7.4-10.4 [place] [address]-02-28 08:57:00 Test Item Value Reference Range Interpretation Comments R-time (test code = R-time) 6.0 min 5.0-10.0 [place] [address]-02-28 08:57:00 Test Item Value Reference Range Interpretation Comments K-time (test code = K-time) 1.4 min 1.0-3.0 [place] 700332-02-28 08:57:00 Test Item Value Reference Range Interpretation Comments Angle (test code = Angle) 69.7 degrees 53.0-72.0 [place] [address]-02-28 08:57:00 Test Item Value Reference Range Interpretation Comments Max Amp (test code = Max Amp) 66.3 mm 50.0-70.0 [place] [address]-02-28 08:57:00 Test Item Value Reference Range Interpretation Comments G-value (test code = G-value) 9.8 4.5-11.0 [place] 700332-02-28 08:57:00 Test Item Value Reference Range Interpretation Comments Ly30 (test code = 0.6 See_Comment [Automate d message] The Ly30) system which ge nerated this result transmit leydi reference range : <=7.5. The reference range was not used to interpr et this result as krishna l/abnormal. [place] [address]-02-28 08:57:00 Test Item Value Reference Range Interpretation Comments Coag Index (test code 1.2 1 See_Comment [Auto mated message] The = Coag Index) system which g enerated this result transmit leydi reference range : <=3.0. The reference range was not used to interpr et this result as krishna l/abnormal. [place] [address]-02-28 08:57:00 Test Item Value Reference Range Interpretation Comments TEG Data (test code = See Note (10/09/21 2:57 TEG Data) AM) [place] [address]-02-28 08:57:00 Test Item Value Reference Range Interpretation Comments PT (test code = PT) 12.1 s 12.0-14.7 [place] [address]-02-28 08:57:00 Test Item Value Reference Range Interpretation Comments INR (test code = INR) 0.90 1 0.85-1.17 [place] [address]-02-28 08:57:00 Test Item Value Reference Range Interpretation Comments PTT (test code = PTT) 27.6 s 22.9-35.8 [place] [address]-02-28 08:57:00 Test Item Value Reference Range Interpretation Comments Segs (test code = Segs) 52.0 45.0-75.0 [place] [address]-02-28 08:57:00 Test Item Value Reference Range Interpretation Comments Lymphocytes (test code = Lymphocytes) 33.8 20.0-40.0 [place] [address]-02-28 08:57:00 Test Item Value Reference Range Interpretation Comments Monocytes (test code = Monocytes) 8.0 2.0-12.0 [place] [address]-02-28 08:57:00 Test Item Value Reference Range Interpretation Comments Eosinophils (test code = 5.8 See_Comment [A utomated message] The Eosinophils) system which ge nerated this result tra nsmitted reference range : <=4.0. The reference r caleb was not used to int erpret this result as normal/abnormal . [place] 700332-02-28 08:57:00 Test Item Value Reference Range Interpretation Comments Basophils (test code = 0.4 See_Comment [Aut omated message] The Basophils) system which ge nerated this result tra nsmitted reference range : <=1.0. The reference r caleb was not used to int erpret this result as normal/abnormal . [place] 700332-02-28 08:57:00 Test Item Value Reference Range Interpretation Comments Neutrophils # (test code = Neutrophils 4.4 1.5-8.1 #) [place] 700332-02-28 08:57:00 Test Item Value Reference Range Interpretation Comments Lymphocytes # (test code = Lymphocytes 2.9 1.0-5.5 #) [place] [address]-02-28 08:57:00 Test Item Value Reference Range Interpretation Comments Monocytes # (test code 0.7 See_Comment [Aut omated message] The = Monocytes #) system which generated this result tra nsmitted reference range : <=0.8. The reference r caleb was not used to int erpret this result as normal/abnormal . [place] 700332-02-28 08:57:00 Test Item Value Reference Range Interpretation Comments Eosinophils # (test code 0.5 See_Comment [A utomated message] The = Eosinophils #) system whic h generated this result tra nsmitted reference range : <=0.5. The reference r caleb was not used to int erpret this result as normal/abnormal . [place] [address]-02-28 08:57:00 Test Item Value Reference Range Interpretation Comments TEG Interp (test Thrombelastograph results code = TEG are within reference ranges. Interp) Note that TEG does not show effect of NSAIDs or P2Y12 inhibitors. CPT:[id number] [place] 889062-02-28 02:07:26 Test Item Value Reference Range Interpretation Comments Glucose Lvl (test code = Glucose Lvl) 95 70-99 [place] 889062-02-28 02:07:26 Test Item Value Reference Range Interpretation Comments BUN (test code = BUN) 13 7-22 [place] 889062-02-28 02:07:26 Test Item Value Reference Range Interpretation Comments Creatinine Lvl (test code = Creatinine 1.24 0.50-1.40 Lvl) [place] 889062-02-28 02:07:26 Test Item Value Reference Range Interpretation Comments Sodium Lvl (test code = Sodium Lvl) 140 135-145 [place] 889062-02-28 02:07:26 Test Item Value Reference Range Interpretation Comments Potassium Lvl (test code = Potassium 3.7 3.5-5.1 Lvl) [place] 889062-02-28 02:07:26 Test Item Value Reference Range Interpretation Comments Chloride Lvl (test code = Chloride Lvl) 106 95-109 [place] 889062-02-28 02:07:26 Test Item Value Reference Range Interpretation Comments CO2 (test code = CO2) 30 24-32 [place] 889062-02-28 02:07:26 Test Item Value Reference Range Interpretation Comments Calcium Lvl (test code = Calcium Lvl) 9.5 8.5-10.5 [place] 889062-02-28 02:07:26 Test Item Value Reference Range Interpretation Comments AGAP (test code = AGAP) 7.7 10.0-20.0 [place] 889062-02-28 02:07:26 Test Item Value Reference Range Interpretation Comments eGFR (test code = eGFR) 72 [place] 700332-02-28 02:07:26 Test Item Value Reference Range Interpretation Comments WBC X 10x3 (test code = WBC X 10x3) 7.4 3.7-10.4 [place] 700332-02-28 02:07:26 Test Item Value Reference Range Interpretation Comments RBC X 10x6 (test code = RBC X 10x6) 5.06 4.70-6.10 [place] 700332-02-28 02:07:26 Test Item Value Reference Range Interpretation Comments Hgb (test code = Hgb) 14.0 14.0-18.0 [place] 700332-02-28 02:07:26 Test Item Value Reference Range Interpretation Comments Hct (test code = Hct) 43.5 42.0-54.0 [place] 700332-02-28 02:07:26 Test Item Value Reference Range Interpretation Comments MCV (test code = MCV) 85.9 80.0-94.0 [place] 700332-02-28 02:07:26 Test Item Value Reference Range Interpretation Comments MCH (test code = MCH) 27.7 pg 27.0-31.0 [place] [address]-02-28 02:07:26 Test Item Value Reference Range Interpretation Comments MCHC (test code = MCHC) 32.3 32.0-36.0 [place] [address]-02-28 02:07:26 Test Item Value Reference Range Interpretation Comments RDW (test code = RDW) 13.9 11.5-14.5 [place] [address]-02-28 02:07:26 Test Item Value Reference Range Interpretation Comments Platelet (test code = Platelet) 192 133-450 [place] 700332-02-28 02:07:26 Test Item Value Reference Range Interpretation Comments MPV (test code = MPV) 9.1 7.4-10.4 [place] [address]-02-28 02:07:26 Test Item Value Reference Range Interpretation Comments ACT (TEG) Rapid (test code = ACT (TEG) 128 s 86-118 Rapid) [place] 700332-02-28 02:07:26 Test Item Value Reference Range Interpretation Comments Split Point Rapid (test code = Split 0.7 min Point Rapid) [place] [address]-02-28 02:07:26 Test Item Value Reference Range Interpretation Comments R-time Rapid (test code = R-time 0.8 min 0.4-0.7 Rapid) [address]02-28 02:07:26 Test Item Value Reference Range Interpretation Comments K-time Rapid (test code = K-time 1.1 min 0.6-2.3 Rapid) [place] 700332-02-28 02:07:26 Test Item Value Reference Range Interpretation Comments Angle Rapid (test code = Angle 76 degrees 64-80 Rapid) [place] [address]-02-28 02:07:26 Test Item Value Reference Range Interpretation Comments Max Amplitude Rapid (test code = Max 71 mm 52-71 Amplitude Rapid) [place] 700332-02-28 02:07:26 Test Item Value Reference Range Interpretation Comments G-value Rapid (test code = G-value 12.1 5.0-11.6 Rapid) [place] [address]-02-28 02:07:26 Test Item Value Reference Range Interpretation Comments Estimated % Lysis Rapid 0.8 See_Comment [Au tomated message] The (test code = Estimated syste m which generated % Lysis Rapid) this result t ransmitted reference range : <=7.5. The reference r caleb was not used to int erpret this result as normal/abnormal . [place] 700332-02-28 02:07:26 Test Item Value Reference Range Interpretation Comments PT (test code = PT) 12.5 s 12.0-14.7 [place] 700332-02-28 02:07:26 Test Item Value Reference Range Interpretation Comments INR (test code = INR) 0.94 1 0.85-1.17 [facility]vvlztxERJBYPLYQU3455-65-69 02:07:26 Test Item Value Reference Range Interpretation Comments PTT (test code = PTT) 29.6 s 22.9-35.8 [place] 700332-02-28 02:07:26 Test Item Value Reference Range Interpretation Comments Segs (test code = Segs) 57.2 45.0-75.0 [place] 700332-02-28 02:07:26 Test Item Value Reference Range Interpretation Comments Lymphocytes (test code = Lymphocytes) 30.9 20.0-40.0 [place] 700332-02-28 02:07:26 Test Item Value Reference Range Interpretation Comments Monocytes (test code = Monocytes) 5.6 2.0-12.0 [facility] SystemXqigkxvERMONGYSYG7115-25-81 02:07:26 Test Item Value Reference Range Interpretation Comments Eosinophils (test code = 5.6 See_Comment [A utomated message] The Eosinophils) system which ge nerated this result tra nsmitted reference range : <=4.0. The reference r caleb was not used to int erpret this result as normal/abnormal . [facility] SystemZntckuyOBYUAIAHDW0390-77-90 02:07:26 Test Item Value Reference Range Interpretation Comments Basophils (test code = 0.7 See_Comment [Aut omated message] The Basophils) system which ge nerated this result tra nsmitted reference range : <=1.0. The reference r caleb was not used to int erpret this result as normal/abnormal . [facility] SystemCjhutxvIFZRNDCTDZ2576-82-12 02:07:26 Test Item Value Reference Range Interpretation Comments Neutrophils # (test code = Neutrophils 4.3 1.5-8.1 #) [place] 700332-02-28 02:07:26 Test Item Value Reference Range Interpretation Comments Lymphocytes # (test code = Lymphocytes 2.3 1.0-5.5 #) [place] 700332-02-28 02:07:26 Test Item Value Reference Range Interpretation Comments Monocytes # (test code 0.4 See_Comment [Aut omated message] The = Monocytes #) system which generated this result tra nsmitted reference range : <=0.8. The reference r caleb was not used to int erpret this result as normal/abnormal . [facility] ArlingtonLahtqsdTEUYRBURBL5082-69-20 02:07:26 Test Item Value Reference Range Interpretation Comments Eosinophils # (test code 0.4 See_Comment [A utomated message] The = Eosinophils #) system whic h generated this result tra nsmitted reference range : <=0.5. The reference r caleb was not used to int erpret this result as normal/abnormal . [facility] ArlingtonObqodmkCXHYDSYDHU8980-16-89 02:07:26 Test Item Value Reference Range Interpretation Comments Coronavirus (COVID-19) Not Detected (10/08/21 LIZBETH (test code = 8:07 PM) Coronavirus (COVID-19) LIZBETH) [facility] [id number] 01:55:00 Test Item Value Reference Range Interpretation Comments ABO/Rh (test code = ABO/Rh) O POS [facility] [id number] 01:55:00 Test Item Value Reference Range Interpretation Comments Antibody Scrn (test Negative (10/08/21 7:55 code = Antibody Scrn) PM) [facility]2022-02-22 19:46:00 Test Item Value Reference Range Interpretation Comments Glucose Lvl (test code = Glucose Lvl) 133 70-99 [facility]392022-02-22 19:46:00 Test Item Value Reference Range Interpretation Comments BUN (test code = BUN) 14 7-22 [facility]2022-02-22 19:46:00 Test Item Value Reference Range Interpretation Comments Creatinine Lvl (test code = Creatinine 1.22 0.50-1.40 Lvl) [facility]2022-02-22 19:46:00 Test Item Value Reference Range Interpretation Comments Sodium Lvl (test code = Sodium Lvl) 138 135-145 [facility]2022-02-22 19:46:00 Test Item Value Reference Range Interpretation Comments Potassium Lvl (test code = Potassium 4.1 3.5-5.1 Lvl) [facility]2022-02-22 19:46:00 Test Item Value Reference Range Interpretation Comments Chloride Lvl (test code = Chloride Lvl) 108 95-109 [facility]2022-02-22 19:46:00 Test Item Value Reference Range Interpretation Comments CO2 (test code = CO2) 26 24-32 [facility]2022-02-22 19:46:00 Test Item Value Reference Range Interpretation Comments Calcium Lvl (test code = Calcium Lvl) 8.6 8.5-10.5 [facility]2022-02-22 19:46:00 Test Item Value Reference Range Interpretation Comments AGAP (test code = AGAP) 8.1 10.0-20.0 [facility]2022-02-22 19:46:00 Test Item Value Reference Range Interpretation Comments eGFR (test code = eGFR) 73 [facility] SystemWdwdgluJUYMGCYRCC8634-99-43 19:46:00 Test Item Value Reference Range Interpretation Comments WBC (test code = WBC) 6.2 3.7-10.4 [facility] SystemHokowpyPBTQEDHHOV4481-62-73 19:46:00 Test Item Value Reference Range Interpretation Comments RBC (test code = RBC) 4.91 4.70-6.10 [facility] SystemUhzpgdyFJDXJDILLA4677-71-70 19:46:00 Test Item Value Reference Range Interpretation Comments Hgb (test code = Hgb) 13.7 14.0-18.0 [facility] SystemRlfevyxAACHMMLGDQ3016-21-07 19:46:00 Test Item Value Reference Range Interpretation Comments Hct (test code = Hct) 42.1 42.0-54.0 [facility] SystemMlgozsxZDOXRLLYOB9322-34-76 19:46:00 Test Item Value Reference Range Interpretation Comments MCV (test code = MCV) 85.8 80.0-94.0 [place] 700332-02-22 19:46:00 Test Item Value Reference Range Interpretation Comments MCH (test code = MCH) 27.9 pg 27.0-31.0 [facility] SystemUdnetexQPPKXVPLDM0289-37-77 19:46:00 Test Item Value Reference Range Interpretation Comments MCHC (test code = MCHC) 32.6 32.0-36.0 [place] 700332-02-22 19:46:00 Test Item Value Reference Range Interpretation Comments RDW (test code = RDW) 14.3 11.5-14.5 [place] 700332-02-22 19:46:00 Test Item Value Reference Range Interpretation Comments Platelet (test code = Platelet) 153 133-450 [place] 700332-02-22 19:46:00 Test Item Value Reference Range Interpretation Comments MPV (test code = MPV) 9.5 7.4-10.4 [place] 700332-02-22 19:46:00 Test Item Value Reference Range Interpretation Comments PT (test code = PT) 12.2 s 12.0-14.7 [place] 700332-02-22 19:46:00 Test Item Value Reference Range Interpretation Comments INR (test code = INR) 0.91 1 0.85-1.17 [place] 700332-02-22 19:46:00 Test Item Value Reference Range Interpretation Comments PTT (test code = PTT) 27.1 s 22.9-35.8 [place] 700332-02-22 19:46:00 Test Item Value Reference Range Interpretation Comments Plt Morph (test code = Normal (10/03/21 1:46 Plt Morph) PM) [place] 700332-02-22 19:46:00 Test Item Value Reference Range Interpretation Comments Segs (test code = Segs) 83.7 45.0-75.0 [place] 700332-02-22 19:46:00 Test Item Value Reference Range Interpretation Comments Lymphocytes (test code = Lymphocytes) 12.3 20.0-40.0 [place] 700332-02-22 19:46:00 Test Item Value Reference Range Interpretation Comments Monocytes (test code = Monocytes) 1.6 2.0-12.0 [place] 700332-02-22 19:46:00 Test Item Value Reference Range Interpretation Comments Eosinophils (test code = 2.0 See_Comment [A utomated message] The Eosinophils) system which ge nerated this result tra nsmitted reference range : <=4.0. The reference r caleb was not used to int erpret this result as normal/abnormal . [place] 700332-02-22 19:46:00 Test Item Value Reference Range Interpretation Comments Basophils (test code = 0.4 See_Comment [Aut omated message] The Basophils) system which ge nerated this result tra nsmitted reference range : <=1.0. The reference r caleb was not used to int erpret this result as normal/abnormal . [place] 700332-02-22 19:46:00 Test Item Value Reference Range Interpretation Comments Neutrophils # (test code = Neutrophils 5.2 1.5-8.1 #) [facility] SystemDaasboxQLUSPXXRUU9431-61-20 19:46:00 Test Item Value Reference Range Interpretation Comments Lymphocytes # (test code = Lymphocytes 0.8 1.0-5.5 #) [facility] SystemVpvujhaAOXQFVWLCE4893-63-63 19:46:00 Test Item Value Reference Range Interpretation Comments Monocytes # (test code 0.1 See_Comment [Aut omated message] The = Monocytes #) system which generated this result tra nsmitted reference range : <=0.8. The reference r caleb was not used to int erpret this result as normal/abnormal . [facility] SystemHunfgzbRVSDRJFWCX4099-43-02 19:46:00 Test Item Value Reference Range Interpretation Comments Eosinophils # (test code 0.1 See_Comment [A utomated message] The = Eosinophils #) system whic h generated this result tra nsmitted reference range : <=0.5. The reference r caleb was not used to int erpret this result as normal/abnormal . [facility] [id number] 17:31:00 Test Item Value Reference Range Interpretation Comments ABO/Rh (test code = ABO/Rh) O POS [facility]woodNXVIS[facility]ERVFTBSQW9062-48-70 17:31:00 Test Item Value Reference Range Interpretation Comments Antibody Scrn (test Negative (10/02/21 code = Antibody Scrn) 11:31 AM) [facility]woodStemBio[facility] [id number] 17:31:00 Test Item Value Reference Range Interpretation Comments Glucose Lvl (test code = Glucose Lvl) 92 70-99 [facility]woodSt[facility] [id number] 17:31:00 Test Item Value Reference Range Interpretation Comments BUN (test code = BUN) 17 7-22 [facility] [id number] 17:31:00 Test Item Value Reference Range Interpretation Comments Creatinine Lvl (test code = Creatinine 1.21 0.50-1.40 Lvl) [facility]woodStemBioSys [id number] 17:31:00 Test Item Value Reference Range Interpretation Comments Sodium Lvl (test code = Sodium Lvl) 140 135-145 [facility] [id number] 17:31:00 Test Item Value Reference Range Interpretation Comments Potassium Lvl (test code = Potassium 4.2 3.5-5.1 Lvl) [place] 889062-02-21 17:31:00 Test Item Value Reference Range Interpretation Comments Chloride Lvl (test code = Chloride Lvl) 108 95-109 [place] 889062-02-21 17:31:00 Test Item Value Reference Range Interpretation Comments CO2 (test code = CO2) 26 24-32 [place] 889062-02-21 17:31:00 Test Item Value Reference Range Interpretation Comments Calcium Lvl (test code = Calcium Lvl) 9.4 8.5-10.5 [place] 889062-02-21 17:31:00 Test Item Value Reference Range Interpretation Comments AGAP (test code = AGAP) 10.2 10.0-20.0 [place] 889062-02-21 17:31:00 Test Item Value Reference Range Interpretation Comments eGFR (test code = eGFR) 74 [place] 700332-02-21 17:31:00 Test Item Value Reference Range Interpretation Comments PTT (test code = PTT) 28.1 s 22.9-35.8 [place] 700332-02-21 17:31:00 Test Item Value Reference Range Interpretation Comments PT (test code = PT) 11.8 s 12.0-14.7 [place] [address]-02-21 17:31:00 Test Item Value Reference Range Interpretation Comments INR (test code = INR) 0.87 1 0.85-1.17 [place] 700332-02-21 17:31:00 Test Item Value Reference Range Interpretation Comments WBC (test code = WBC) 5.4 3.7-10.4 [place] [address]-02-21 17:31:00 Test Item Value Reference Range Interpretation Comments RBC (test code = RBC) 4.90 4.70-6.10 [place] [address]-02-21 17:31:00 Test Item Value Reference Range Interpretation Comments Hgb (test code = Hgb) 13.7 14.0-18.0 [place] [address]-02-21 17:31:00 Test Item Value Reference Range Interpretation Comments Hct (test code = Hct) 42.0 42.0-54.0 [place] [address]-02-21 17:31:00 Test Item Value Reference Range Interpretation Comments MCV (test code = MCV) 85.6 80.0-94.0 [place] [address]-02-21 17:31:00 Test Item Value Reference Range Interpretation Comments MCH (test code = MCH) 27.9 pg 27.0-31.0 [place] [address]-02-21 17:31:00 Test Item Value Reference Range Interpretation Comments MCHC (test code = MCHC) 32.6 32.0-36.0 [place] 700332-02-21 17:31:00 Test Item Value Reference Range Interpretation Comments RDW (test code = RDW) 14.1 11.5-14.5 [place] [address]-02-21 17:31:00 Test Item Value Reference Range Interpretation Comments Platelet (test code = Platelet) 173 133-450 [place] 700332-02-21 17:31:00 Test Item Value Reference Range Interpretation Comments MPV (test code = MPV) 10.1 7.4-10.4 [place] 700332-02-21 17:31:00 Test Item Value Reference Range Interpretation Comments Segs (test code = Segs) 54.1 45.0-75.0 [place] 700332-02-21 17:31:00 Test Item Value Reference Range Interpretation Comments Lymphocytes (test code = Lymphocytes) 30.9 20.0-40.0 [place] [id number] 17:31:00 Test Item Value Reference Range Interpretation Comments Monocytes (test code = Monocytes) 6.7 2.0-12.0 [place] [id number] 17:31:00 Test Item Value Reference Range Interpretation Comments Eosinophils (test code = 7.7 See_Comment [A utomated message] The Eosinophils) system which ge nerated this result tra nsmitted reference range : <=4.0. The reference r caleb was not used to int erpret this result as normal/abnormal . [place] [id number] 17:31:00 Test Item Value Reference Range Interpretation Comments Basophils (test code = 0.6 See_Comment [Aut omated message] The Basophils) system which ge nerated this result tra nsmitted reference range : <=1.0. The reference r caleb was not used to int erpret this result as normal/abnormal . [id number] 17:31:00 Test Item Value Reference Range Interpretation Comments Neutrophils # (test code = Neutrophils 2.9 1.5-8.1 #) [id number] 17:31:00 Test Item Value Reference Range Interpretation Comments Lymphocytes # (test code = Lymphocytes 1.7 1.0-5.5 #) [facility] S[id number] 17:31:00 Test Item Value Reference Range Interpretation Comments Monocytes # (test code 0.4 See_Comment [Aut omated message] The = Monocytes #) system which generated this result tra nsmitted reference range : <=0.8. The reference r caleb was not used to int erpret this result as normal/abnormal . [facility] SystemKswqengOKOGQZHJZY4337-34-46 17:31:00 Test Item Value Reference Range Interpretation Comments Eosinophils # (test code 0.4 See_Comment [A utomated message] The = Eosinophils #) system whic h generated this result tra nsmitted reference range : <=0.5. The reference r caleb was not used to int erpret this result as normal/abnormal . [facility]DP6207-17-60 17:31:00 Test Item Value Reference Range Interpretation Comments Coronavirus (COVID-19) Not Detected (10/02/21 LIZBETH (test code = 11:31 AM) Coronavirus (COVID-19) LIZBETH) [facility] [id number] 17:31:00 Test Item Value Reference Range Interpretation Comments Hgb A1C (test code = Hgb A1C) 5.7 [facility] [id number] 07:37:00 Test Item Value Reference Range Interpretation Comments Sed Rate (test code = 2 See_Comment [Auto mated message] The Sed Rate) system which ge nerated this result transmit leydi reference range : <=15. The reference range was not used to interpr et this result as krishna l/abnormal. [facility]RtxcuxgGNDDNEABPP6370-98-72 07:37:00 Test Item Value Reference Range Interpretation Comments C-REACTIVE PROTEIN (test code = 8.4 C-REACTIVE PROTEIN) [id number] 01:10:00 Test Item Value Reference Range Interpretation Comments Monocytes (test code = Monocytes) 7.0 2.0-12.0 [place] [id number] 01:10:00 Test Item Value Reference Range Interpretation Comments Eosinophils (test code = 11.6 See_Comment [A utomated message] The Eosinophils) system which ge nerated this result tra nsmitted reference range : <=4.0. The reference r caleb was not used to int erpret this result as normal/abnormal . [place] 700331-09-30 01:10:00 Test Item Value Reference Range Interpretation Comments Basophils (test code = 1.3 See_Comment [Aut omated message] The Basophils) system which ge nerated this result tra nsmitted reference range : <=1.0. The reference r caleb was not used to int erpret this result as normal/abnormal . [place] 700331-09-30 01:10:00 Test Item Value Reference Range Interpretation Comments Neutrophils # (test code = Neutrophils 2.5 1.5-8.1 #) [place] 700331-09-30 01:10:00 Test Item Value Reference Range Interpretation Comments Lymphocytes # (test code = Lymphocytes 2.2 1.0-5.5 #) [place] 700331-09-30 01:10:00 Test Item Value Reference Range Interpretation Comments Monocytes # (test code 0.4 See_Comment [Aut omated message] The = Monocytes #) system which generated this result tra nsmitted reference range : <=0.8. The reference r caleb was not used to int erpret this result as normal/abnormal . [place] 700331-09-30 01:10:00 Test Item Value Reference Range Interpretation Comments Eosinophils # (test code 0.7 See_Comment [A utomated message] The = Eosinophils #) system whic h generated this result tra nsmitted reference range : <=0.5. The reference r caleb was not used to int erpret this result as normal/abnormal . [place] 700331-09-30 01:10:00 Test Item Value Reference Range Interpretation Comments Basophils # (test code 0.1 See_Comment [Aut omated message] The = Basophils #) system which generated this result tra nsmitted reference range : <=0.2. The reference r caleb was not used to int erpret this result as normal/abnormal . [place] 889061-09-30 01:10:00 Test Item Value Reference Range Interpretation Comments Glucose Lvl (test code = Glucose Lvl) 115 70-99 [place] 889061-09-30 01:10:00 Test Item Value Reference Range Interpretation Comments BUN (test code = BUN) 13 7-22 [place] 889061-09-30 01:10:00 Test Item Value Reference Range Interpretation Comments Creatinine Lvl (test code = Creatinine 1.21 0.50-1.40 Lvl) [place] 889061-09-30 01:10:00 Test Item Value Reference Range Interpretation Comments Sodium Lvl (test code = Sodium Lvl) 141 135-145 [place] 889061-09-30 01:10:00 Test Item Value Reference Range Interpretation Comments Potassium Lvl (test code = Potassium 3.8 3.5-5.1 Lvl) [place] 889061-09-30 01:10:00 Test Item Value Reference Range Interpretation Comments Chloride Lvl (test code = Chloride Lvl) 110 95-109 [place] 889061-09-30 01:10:00 Test Item Value Reference Range Interpretation Comments CO2 (test code = CO2) 25 24-32 [place] 889061-09-30 01:10:00 Test Item Value Reference Range Interpretation Comments Calcium Lvl (test code = Calcium Lvl) 9.1 8.5-10.5 [place] 889061-09-30 01:10:00 Test Item Value Reference Range Interpretation Comments AGAP (test code = AGAP) 9.8 10.0-20.0 [place] 889061-09-30 01:10:00 Test Item Value Reference Range Interpretation Comments eGFR (test code = eGFR) 74 [place] 700331-09-30 01:10:00 Test Item Value Reference Range Interpretation Comments WBC X 10x3 (test code = WBC X 10x3) 5.9 3.7-10.4 [place] 700331-09-30 01:10:00 Test Item Value Reference Range Interpretation Comments RBC X 10x6 (test code = RBC X 10x6) 4.92 4.70-6.10 [facility]EaazmijMYNGZUNRUP4830-02-26 01:10:00 Test Item Value Reference Range Interpretation Comments Hgb (test code = Hgb) 13.8 14.0-18.0 [facility] SystemDpgvxyaZMIKIMMYUK3398-42-71 01:10:00 Test Item Value Reference Range Interpretation Comments Hct (test code = Hct) 41.8 42.0-54.0 [facility] SystemPudjzyfEVBOFCHLMJ4968-34-20 01:10:00 Test Item Value Reference Range Interpretation Comments MCV (test code = MCV) 84.9 80.0-94.0 [facility] SystemNpvtvgeHGEIQRSAKD5407-07-00 01:10:00 Test Item Value Reference Range Interpretation Comments MCH (test code = MCH) 28.0 pg 27.0-31.0 [facility] SystemNktkbrgBLRSWMODIP8621-25-42 01:10:00 Test Item Value Reference Range Interpretation Comments MCHC (test code = MCHC) 33.0 32.0-36.0 [facility] SystemQvceizyEEPFMMFKQU7111-00-48 01:10:00 Test Item Value Reference Range Interpretation Comments RDW (test code = RDW) 14.0 11.5-14.5 [facility] SystemZfyrxefVJIVYNCIOH1572-15-03 01:10:00 Test Item Value Reference Range Interpretation Comments Platelet (test code = Platelet) 171 133-450 [facility] SystemShesinaYLWEVSSEYS2667-40-92 01:10:00 Test Item Value Reference Range Interpretation Comments MPV (test code = MPV) 8.8 7.4-10.4 [facility] SystemQlzlxyfLHGMRPDZTT6591-56-31 01:10:00 Test Item Value Reference Range Interpretation Comments Segs (test code = Segs) 42.2 45.0-75.0 [facility] SystemHmwdqsmKFXABEQWZW3372-03-29 01:10:00 Test Item Value Reference Range Interpretation Comments Lymphocytes (test code = Lymphocytes) 37.9 20.0-40.0 [facility]2018-11-27 18:20:00 Test Item Value Reference Range Interpretation Comments eGFR (test code = eGFR) 90 [facility]2018-11-27 18:20:00 Test Item Value Reference Range Interpretation Comments AGAP (test code = AGAP) 4.2 10.0-20.0 [facility]2018-11-27 18:20:00 Test Item Value Reference Range Interpretation Comments Calcium Lvl (test code = Calcium Lvl) 8.6 8.5-10.5 [facility]2018-11-27 18:20:00 Test Item Value Reference Range Interpretation Comments CO2 (test code = CO2) 30 24-32 [facility]2018-11-27 18:20:00 Test Item Value Reference Range Interpretation Comments Chloride Lvl (test code = Chloride Lvl) 109 95-109 [facility]2018-11-27 18:20:00 Test Item Value Reference Range Interpretation Comments Potassium Lvl (test code = Potassium 4.2 3.5-5.1 Lvl) [facility]2018-11-27 18:20:00 Test Item Value Reference Range Interpretation Comments Sodium Lvl (test code = Sodium Lvl) 139 135-145 [facility]2018-11-27 18:20:00 Test Item Value Reference Range Interpretation Comments Glucose Lvl (test code = Glucose Lvl) 111 70-99 [facility]2018-11-27 18:20:00 Test Item Value Reference Range Interpretation Comments BUN (test code = BUN) 18 7-22 [facility]2018-11-27 18:20:00 Test Item Value Reference Range Interpretation Comments Creatinine Lvl (test code = Creatinine 1.18 0.50-1.40 Lvl) [facility][U] XRAY ELBOW 2 VWS RIGHT [id number] 15:57:00Images acquired, not reported on this accession number.[facility][U] XRAY WRIST MIN 3 VWS RIGHT [id number] 15:57:00Images acquired, not reported on this accession number.[facility]
[2022-09-18] MEDS ORDERED: ONDANSETRON 4 MG/2 ML VIAL ONE (12:46)
[2022-09-18] MEDS ORDERED: NA CHLORIDE 0.9% 1,000 ML ONE (12:47)
[2022-09-18] MEDS ORDERED: KETOROLAC 30 MG/ML INJ ONE (12:47)
[2022-09-18 13:15] LABS: Absolute Lymphocytes (CBC) 1.6 K/uL (0.7-4.9); Hematocrit 40.7 % (39.6-49.0); Lymphocytes % 27.2 % (15.3-44.8); MCV 85.2 fL (80-100); MPV 8.9 fL (7.6-11.3); RBC Red Blood Cell Count 4.78 M/uL (4.33-5.43)
[2022-09-18 13:32] LABS: Albumin 3.2 g/dL (3.4-5.0); Bilirubin Total 0.5 mg/dL (0.2-1.0); Potassium 3.9 mmol/L (3.5-5.1); Protein, Total 6.7 g/dL (6.4-8.2)
--- NOTE | 2022-09-18 14:05 | RAD REPORT ---
EXAM DESCRIPTION: CT - Head Brain Wo Cont - 09/18/2022 1:49 pm CLINICAL HISTORY: HEADACHE COMPARISON: Head Brain Wo Cont dated 05/14/2022; Head Brain Wo Cont dated 05/11/2022 TECHNIQUE: All CT scans are performed using dose optimization technique as appropriate and may inclu de automated exposure control or mA/KV adjustment according to patient size. FINDINGS: No intracranial hemorrhage, hydrocephalus or extra-axial fluid collection.HAND STRIPER shunt positio n unchanged since prior examinations.No areas of brain edema or evidence of midline shift. The paranasal sinuses and right mastoid are clear. Significant fluid is seen in the left mastoid air cell with soft tissue filling the middle ear. This is likely a otomastoiditis. The calvarium is intact. IMPRESSION: No acute intracranial abnormality. Significant left-sided otomastoiditis.
--- NOTE | 2022-09-18 14:06 | RAD REPORT ---
EXAM DESCRIPTION: CTAbdomen Pelvis W Contrast - 09/18/2022 1:49 pm CLINICAL HISTORY: Abdominal pain. ABD PAIN COMPARISON: Abdomen Pelvis W Contrast dated 10/08/2021; Abdomen Pelvis W Contrast dated 06/19/2019 ; Abdomen Pelvis W Contrast dated 04/12/2019 TECHNIQUE: Biphasic CT imaging of the abdomen and pelvis was performed with 100 ml non-ionic IV cont rast. All CT scans are performed using dose optimization technique as appropriate and may include automated exposure control or mA/KV adjustment according to patient size. FINDINGS: The lung bases are clear. The liver, spleen, pancreas, adrenal glands and kidneys are within normal limits. No bowel obstruction, free air, free fluid or abscess. Right BANQUET LEAD shunt tubing noted. Appendix is absen t. No evidence of significant lymphadenopathy. No suspicious bony findings. IMPRESSION: No acute intra-abdominal or pelvic finding.
[2022-09-18] MEDS ORDERED: METOCLOPRAMIDE 10 MG/2mL INJ ONE (14:32)
[2022-09-18] MEDS ORDERED: DIPHENHYDRAMINE 50 MG/ML VIAL ONE (14:32)
--- NOTE | 2022-09-18 15:12 | ER ---
Nurse's Notes [facility] Name: Terry A[facility] Sr Age: 42 yrs Sex: Male : 1980 Arrival Date: 09/18/2022 Time: 11:56 Bed 11 Private MD: John Vazquez Diagnosis: Headache;Upper abdominal pain, unspecified;Essential (primary) hypertension Presentation: 09/18 12:16 Chief complaint: Patient states: headache, nausea, RUQ pain and dizziness that began ss when patient woke up this morning at 0914 today. Coronavirus screen: Client denies travel out of the [place] in the last 14 days. Ebola Screen: Patient denies exposure to infectious person. Patient denies travel to an Ebola-affected area in the 21 days before illness onset. Initial Sepsis Screen: Does the patient meet any 2 criteria? No. Patient's initial sepsis screen is negative. Does the patient have a suspected source of infection? No. Patient's initial sepsis screen is negative. Risk Assessment: Do you want to hurt yourself or someone else? Patient reports no desire to harm self or others. Onset of symptoms was September 18, 2022. 12:16 Method Of Arrival: Ambulatory ss 12:16 Acuity: SARITHA 3 ss Historical: - Allergies: 12:17 No Known Allergies; ss - Home Meds: 12:17 lisinopril 40 mg Oral tab once daily [Active]; pantoprazole Oral [Active]; ss - PMHx: 12:17 Hypertensive disorder; Migraine; ss - PSHx: 12:17 Appendectomy; carpal tunnel right; hernia; left hand tendonitis; Nerve transplantion; ss shunt; - Immunization history:: Client reports receiving the 2nd dose of the Covid vaccine. - Social history:: Smoking status: Patient denies any tobacco usage or history of. Screenin:04 [facility] ED Fall Risk Assessment (Adult) History of falling in the last 3 months, jl7 including since admission No falls in past 3 months (0 pts) Confusion or Disorientation No (0 pts) Intoxicated or Sedated No (0 pts) Impaired Gait No (0 pts) Mobility Assist Device Used No (0 pt) Altered Elimination No (0 pt) Score/Fall Risk Level 0 - 2 = Low Risk Oriented to surroundings, Maintained a safe environment. Abuse screen: Denies threats or abuse. Denies injuries from another. Nutritional screening: No deficits noted. Tuberculosis screening: No symptoms or risk factors identified. Assessment: 12:30 General: Appears in no apparent distress. uncomfortable, Behavior is cooperative, jl7 anxious, crying. Pain: Complains of pain in occipital area Pain radiates to left parietal area and right parietal area Pain currently is 10 out of 10 on a pain scale. Neuro: Level of Consciousness is awake, alert, obeys commands, Oriented to person, place, time, situation. Cardiovascular: Patient's skin is warm and dry. Respiratory: Airway is patent Respiratory effort is even, unlabored, Respiratory pattern is regular, symmetrical. Derm: Skin is pink, warm \T\ dry. 13:30 Reassessment: Patient appears in no apparent distress at this time. No changes from jl7 previously documented assessment. Patient and/or family updated on plan of care and expected duration. Pain level reassessed. Patient is alert, oriented x 3, equal unlabored respirations, skin warm/dry/pink. 14:30 Reassessment: Patient appears in no apparent distress at this time. No changes from jl7 previously documented assessment. Patient and/or family updated on plan of care and expected duration. Pain level reassessed. Patient is alert, oriented x 3, equal unlabored respirations, skin warm/dry/pink. 15:04 Reassessment: Patient denies pain at this time. Patient states feeling better. Patient jl7 states symptoms have improved. 15:26 Reassessment: Pt will discharged once Dr. Orellana talks to PCP. jl7 16:15 Reassessment: Pt requesting to be discharged, reports significant improvement in jl7 symptoms and does not want to wait any longer. Vital Signs: 12:16 BP 170 / 115; Pulse 71; Resp 18; Temp 98.2(TE); Pulse Ox 100% on R/A; Weight 158.76 kg; Height 6 ft. 3 in. (190.50 cm); Pain 10/10; 13:32 BP 150 / 101; Pulse 75; Resp 15; Pulse Ox 100% ; Pain 10/10; jl7 12:16 Body Mass Index 43.75 (158.76 kg, 190.50 cm) ED Course: 11:56 Patient arrived in ED. mr 11:56 Mathieu Orellana DO is Attending Physician. ms3 11:56 John Vazquez DO is Private Physician. mr 12:17 Triage completed. ss 12:17 Arm band placed on right wrist. ss 12:42 Lety Otero, BRYN is Primary Nurse. jl7 12:45 Initial lab(s) drawn, by me, sent to lab. Inserted saline lock: 20 gauge in left jl7 antecubital area, using aseptic technique. Blood collected. 13:51 CT Abd/Pelvis - IV Contrast Only In Process Unspecified. EDMS 13:51 CT Head Brain wo Cont In Process Unspecified. EDMS 15:04 Patient has correct armband on for positive identification. jl7 15:26 No provider procedures requiring assistance completed. jl7 16:10 IV discontinued, intact, bleeding controlled, No redness/swelling at site. Pressure jl7 dressing applied. Administered Medications: 12:25 Drug: Zofran (Ondansetron) 4 mg Route: IVP; Site: left antecubital; jl7 15:03 Follow up: Response: No adverse reaction jl7 12:55 Drug: NS 0.9% 1000 ml Route: IV; Rate: 1 bolus; Site: left antecubital; jl7 14:00 Follow up: Response: No adverse reaction; IV Status: Completed infusion; IV Intake: jl7 1000ml 12:58 Drug: TORadol - (ketorolac) 15 mg Route: IVP; Site: left antecubital; jl7 13:33 Follow up: Response: No adverse reaction; Pain is unchanged, physician notified jl7 14:40 Drug: Benadryl (diphenhydrAMINE) 25 mg Route: IVP; Site: left antecubital; jl7 15:00 Follow up: Response: No adverse reaction; Pain is decreased jl7 14:43 Drug: Reglan (metoCLOPramide) 10 mg Route: IVP; Site: left antecubital; jl7 15:03 Follow up: Response: No adverse reaction; Pain is decreased jl7 Medication: 15:04 VIS not applicable for this client. jl7 Intake: 14:00 IV: 1000ml; Total: 1000ml. jl7 Outcome: 15:12 Discharge ordered by MD. ms3 16:10 Discharged to home ambulatory. jl7 16:10 Condition: stable 16:10 Discharge instructions given to patient, Instructed on discharge instructions, follow up and referral plans. Demonstrated understanding of instructions, follow-up care. 16:19 Patient left the ED. ss Signatures: Dispatcher [employer] Ghislaine Nathan Shelby RN RN Lety Mcbride RN RN jl7 Mathieu Orellana DO DO ms3
--- NOTE | 2022-09-18 15:12 | EDPHYS ---
Physician Documentation [facility] Name: Terry Akins Sr Age: 42 yrs Sex: Male : 1980 Arrival Date: 09/18/2022 Time: 11:56 Bed 11 Private MD: George Counts Include 234 Beds At [facility] ED Physician Mathieu Orellana HPI: 09/18 12:24 This 42 yrs old Black Male presents to ER via Ambulatory with complaints of Headache, ms3 Abdominal Pain, Dizziness. 12:24 42-year-old male with past medical history of hypertension and migraines presents for ms3 headache and right upper quadrant abdominal pain. Patient states he was sent to the emergency department by Dr. Santana for CT of his head and CT of his abdomen. Patient states his pain is a 10/10. Patient endorses nausea. Patient denies vomiting, fevers, chills. . Historical: - Allergies: 12:17 No Known Allergies; ss - Home Meds: 12:17 lisinopril 40 mg Oral tab once daily [Active]; pantoprazole Oral [Active]; ss - PMHx: 12:17 Hypertensive disorder; Migraine; ss - PSHx: 12:17 Appendectomy; carpal tunnel right; hernia; left hand tendonitis; Nerve transplantion; ss shunt; - Immunization history:: Client reports receiving the 2nd dose of the Covid vaccine. - Social history:: Smoking status: Patient denies any tobacco usage or history of. ROS: 12:24 Constitutional: Negative for fever, and chills. Neck: Negative for injury, pain, and ms3 swelling, Cardiovascular: Negative for chest pain, and palpitations. Respiratory: Negative for shortness of breath, cough, wheezing, and pleuritic chest pain, Back: Negative for injury and pain, MS/Extremity: Negative for injury and deformity, Skin: Negative for injury, rash, and discoloration. 12:24 Abdomen/GI: Positive for abdominal pain. 12:24 Neuro: Positive for headache. Exam: 12:24 Constitutional: This is a well developed, well nourished patient who is awake, alert, ms3 and in no acute distress. Head/Face: Normocephalic, atraumatic. Eyes: Pupils equal round and reactive to light, extra-ocular motions intact. Lids and lashes normal. Conjunctiva and sclera are non-icteric and not injected. Periorbital areas with no swelling, redness, or edema. Neck: Trachea midline, no cervical lymphadenopathy. Supple, full range of motion without nuchal rigidity, or vertebral point tenderness. No Meningismus. Chest/axilla: Normal chest wall appearance and motion. Nontender with no deformity. Cardiovascular: Regular rate and rhythm with a normal S1 and S2. No gallops, murmurs, or rubs. Normal PMI, no JVD. No pulse deficits. Respiratory: Lungs have equal breath sounds bilaterally, clear to auscultation and percussion. No rales, rhonchi or wheezes noted. No increased work of breathing, no retractions or nasal flaring. Abdomen/GI: Soft, non-tender, with normal bowel sounds. No distension or tympany. No guarding or rebound. No evidence of tenderness throughout. Skin: Warm, dry with normal turgor. Normal color with no rashes, no lesions, and no evidence of cellulitis. MS/ Extremity: Pulses equal, no cyanosis. Neurovascular intact. Full, normal range of motion. Vital Signs: 12:16 BP 170 / 115; Pulse 71; Resp 18; Temp 98.2(TE); Pulse Ox 100% on R/A; Weight 158.76 kg; ss Height 6 ft. 3 in. (190.50 cm); Pain 10/10; 13:32 BP 150 / 101; Pulse 75; Resp 15; Pulse Ox 100% ; Pain 10/10; jl7 12:16 Body Mass Index 43.75 (158.76 kg, 190.50 cm) ss MDM: 12:06 Patient medically screened. ms3 12:24 Differential diagnosis: migraine, shunt malfunction vs cholecystitis. ms3 14:14 ED course: Discussed with patient calling Dr Santana, patient states he will be following ms3 up with him tomorrow and there was not a need to call him.. 18:06 Data reviewed: vital signs, nurses notes, lab test result(s), radiologic studies, and ms3 as a result, I will discharge patient. Management of patient was discussed with the following: Housetrailer Servicer: Dr Romano- Unable to get patient to come to clinic. Patient will need Temporal bone CT. No need for abx at this time.. I considered the following discharge prescriptions or medication management in the emergency department Medications were administered in the Emergency Department. See MAR. Independent interpretation of the following test(s) in the Emergency Department CT Scan: My interpretation is CT scan images reviewed by me do not reveal intracranial hemorrhage.. Counseling: I had a detailed discussion with the patient and/or guardian regarding: the historical points, exam findings, and any diagnostic results supporting the discharge/admit diagnosis, lab results, radiology results, the need for outpatient follow up. ED course: After discussion with I went to patient's room to discuss Dr. Romano's recommendations. Nursing informed me patient stated he had to leave and left the emergency department.. 09/18 12:15 Order name: CBC with Diff; Complete Time: 13:56 ms3 09/18 12:15 Order name: CMP; Complete Time: 13:56 ms3 09/18 12:15 Order name: Lipase; Complete Time: 13:56 ms3 09/18 12:15 Order name: CT Abd/Pelvis - IV Contrast Only; Complete Time: 14:10 ms3 09/18 12:16 Order name: CT Head Brain wo Cont; Complete Time: 14:10 ms3 09/18 12:15 Order name: IV Saline Lock; Complete Time: 13:29 ms3 09/18 12:15 Order name: Labs collected and sent; Complete Time: 13:29 ms3 Administered Medications: 12:25 Drug: Zofran (Ondansetron) 4 mg Route: IVP; Site: left antecubital; jl7 15:03 Follow up: Response: No adverse reaction jl7 12:55 Drug: NS 0.9% 1000 ml Route: IV; Rate: 1 bolus; Site: left antecubital; jl7 14:00 Follow up: Response: No adverse reaction; IV Status: Completed infusion; IV Intake: jl7 1000ml 12:58 Drug: TORadol - (ketorolac) 15 mg Route: IVP; Site: left antecubital; jl7 13:33 Follow up: Response: No adverse reaction; Pain is unchanged, physician notified jl7 14:40 Drug: Benadryl (diphenhydrAMINE) 25 mg Route: IVP; Site: left antecubital; jl7 15:00 Follow up: Response: No adverse reaction; Pain is decreased jl7 14:43 Drug: Reglan (metoCLOPramide) 10 mg Route: IVP; Site: left antecubital; jl7 15:03 Follow up: Response: No adverse reaction; Pain is decreased jl7 Disposition Summary: 09/18/22 15:12 Discharge Ordered Location: Home ms3 Condition: Stable ms3 Diagnosis - Headache ms3 - Upper abdominal pain, unspecified ms3 - Essential (primary) hypertension ms3 Followup: ms3 - With: Private Physician - When: Tomorrow - Reason: Recheck today's complaints Discharge Instructions: - Discharge Summary Sheet ms3 - Abdominal Pain, Adult ms3 - General Headache Without Cause ms3 - Hypertension, Adult ms3 Forms: - Medication Reconciliation Form ms3 - Thank You Letter ms3 - Antibiotic Education ms3 - Prescription Opioid Use ms3 Signatures: Dispatcher [employer] Natasha Geiger, RN Lety Cherry RN RN jl7 Mathieu Orellana DO DO ms3
[2022-09-18 16:32] VITALS: TEMP 98.2; O2SAT 100
[2022-09-18 16:38] VITALS: BP 150/101
== END 2022-09-18 16:19 | disposition home or self-care (01) ==
LOC: ER 11:51
DX: R51.9 Headache, unspecified (principal); R10.11 Right upper quadrant pain; I10 Essential (primary) hypertension
CPT/HCPCS: 85025; 36415; 83690; 80053; 70450; 74177; Q9967; J2765; J1200; J7030; J2405

== ENCOUNTER 2022-09-22 12:21 | Emergency (ER) | payer OTHER ==
--- OUTSIDE RECORDS SUMMARY | 2022-09-22 12:29 | XMS REPORT | Continuity of Care Document ---
:1980 [facility] t Address [address] Hernandez [address] [place] [id number] Care Team Providers Name Role Phone Asked, [...] Howard MA Attending Clinician Unavailable Doctor Unassigned, [place] Attending Clinician Unavailable 1, Gal Audio Sound [...] Expiration Source Type Date Date [facility] MEDICAID [place] [id number] 2018 00:00:00 [facility] [id number] 2018 Common S pirit CHOICE 00:00:00 - [facility] [id number] 2018 Common S pirit CHOICE 00:00:00 - [facility] [id number] 2018 Common S pirit CHOICE 00:00:00 - [facility] [id number] 2018 Common S pirit CHOICE 00:00:00 - [facility] [id number] 2019 [facility] CHOICE - MANAGED 00:00:00 [facility] MEDICAIDCOMMUNITY [facility] CHOICE [id number]/2019-Present[address], [place] [address] [id number] 2018 Common S pirit CHOICE 00:00:00 - [facility] [id number] 2018 Common S pirit CHOICE 00:00:00 - [facility] [id number] 2018 Common S pirit CHOICE 00:00:00 - [facility] Problems Condition Condition Condition Status Onset Resolution Last Treating Co mments Source Name Details Category Date Date Treatment Clinician Date BMI BMI Disease Active 2021-08 UT 40.0-44.9, 40.0-44.9, 0-07 He alth adult adult 00:00: 00 UNSPECIFIE UNSPECIFI Diagnosis Active 2021-10-26 Memoria D ED 3-15 18:20:00 l ABDOMINAL ABDOMINAL 00:00: Herm faina PAIN PAIN 00 Active 10/24/2021 [facility] DISPLACED DISPLACED Diagnosis Active 2021-10-08 Memoria 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 10-08 19:39:00 l Active 00:00: [place] 10/08/2021 00 [facility] 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 Diagnosis Active 2021-10-26 Memoria MALF MALF 10-08 18:20:00 l Active 00:00: Davidson 10/08/2021 00 [facility] G96.00 G96.00 Diagnosis Active 2021-10-26 Me moria Active 09-28 18:20:00 l 09/28/2021 00:00: Sadi n [address] MD LOJA Diagnosis Active 2021-05-10 Mem oria REFERRAL/ REFERRAL/ 05-10 20:33:00 l FLUIDS FLUIDS 00:00: [place] LEAKING LEAKING 00 FROM EAR FROM EAR Active 05/10/2021 [facility] CSF CSF Disease Active [facility] otorrhea otorrhea 05-09 Health 00:00: 00 Syncope Syncope Disease Active 2017-[address] [facility] 00 l Lesion of Lesion of Problem 2019-01-26 Memoria ulnar ulnar 15:19:24 l nerve, nerve, Davidson right right upper limb upper limb 01/26/2019 [place] Unspecifie Unspecifi Problem 2019-01-26 Memoria d ed 15:19:24 l osteoarthr osteoarthr Harpreet veliz itis, itis, unspecifie unspecifie d site d site 01/26/2019 [place] Sleep Sleep Problem 2019-01-26 Memor ia apnea, apnea, 15:19:24 l unspecifie unspecifie He rmann d d 01/26/2019 [place] Unspecifie Unspecifi Problem 2019-01-26 Memoria d asthma, ed asthma, 15:19:24 l uncomplica uncomplica He jose alfredo holley leydi 01/26/2019 [place] Anxiety Anxiety Problem 2019-01-26 Wi moria disorder, disorder, 15:19:24 l unspecifie unspecifie He rmfaina d d 01/26/2019 [place] Gastro-eso Gastro-es Problem 2019-01-26 Memoria phageal ophageal 15:19:24 l reflux reflux Lyons disease disease without without esophagiti esophagiti s s 01/26/2019 [place] Essential Problem 2019-01-26 Wi moria (primary) Essential 15:19:24 l hypertensi (primary) Her jones on hypertensi on 01/26/2019 [place] Personal Personal Problem 2019-01-26 Memoria history of history of 15:19:24 l nicotine nicotine Sadi n dependence dependence 9 [place] Allergy Allergy Problem 2019-01-26 Wi moria status to status to 15:19:24 l analgesic analgesic Herm faina agent agent status status 01/26/2019 [place] 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 Memoria (current) (current) 15:19:24 l use of use of Davidson non-steroi non-steroi siddharth siddharth anti-infla anti-infla mmatories mmatories (NSAID) (NSAID) 01/26/2019 [place] Dependence Dependenc Problem 2019-01-26 Memoria on other e on other 15:19:24 l enabling enabling Sadi n machines machines and and devices devices 01/26/2019 [place] Arthrodesi Arthrodes Problem 2019-01-26 Memoria s status is status 15:19:24 l 01/26/2019 Sadi n [place] Cerebrospi Cerebrosp Problem Active 2021-10-27 Memoria nal fluid inal fluid 23:21:02 l leak leak Davidson (disorder) (disorder) Active Problem 10/27/2021 [facility], RHODA Cedeño, RHODA [place] Chest pain Chest Problem Active 2021-10-27 M emoria (finding) pain 23:21:02 l (finding) Davidson Active Problem 10/27/2021 [facility], RHODA Cedeño, RHODA Burr,M H [place] Morbid Morbid Problem Active 2021-10-27 David katarzyna obesity obesity 23:21:02 l (disorder) (disorder) He rmann Active Problem 10/27/2021 [facility], RHODA Cedeño, RHODA Burr Rhabdomyol Rhabdomyo Problem Active 2021-10-27 Memoria ysis lysis 23:21:02 l (disorder) (disorder) He rmann Active Problem 10/27/2021 [facility], RHODA Cedeño, RHODA Burr,M H [place] Smoker Smoker Problem Active 2021-10-27 David katarzyna (finding) (finding) 23:21:02 l Active [place] Problem 10/27/2021 [facility], RHODA Cedeño, RHODA Burr MECH COMPL MECH Diagnosis Active 2021-10-26 Memoria OF COMPL OF 18:20:00 l VENTRICULA VENTRICULA jose alfredo R R INTRACRANI INTRACRANI AL S AL S Active [facility] R10.30 - R10.30 - Diagnosis Active 2021-10-26 Memoria LOWER LOWER 18:20:00 l ABDOMINAL ABDOMINAL Herm faina PAIN, PAIN, UNSPECIF UNSPECIF Active RHODA Cedeño R10.84 - R10.84 - Diagnosis Active 2022-01-10 Memoria GENERALIZE GENERALIZE 14:35:00 l D Tricia Cedeño ABDOMINAL ABDOMINAL PAIN PAIN Active RHODA Burr No known No known Disease Unive rs active active ity of problems problems [facility] Cubital Cubital Problem Active UT [...] Active UT vomiting vomiting Physic i ans [id number] MANAGER GAMES Problem 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 d trigger [facility] [id number] Mild Problem Common intermitte Spirit nt asthma - CHI with allergic [facility] rhinitis, [facility] unspecifie Center d whether complicate d [id number] Depression Problem Co mmon with Spirit anxiety - [facility] [id number] Migraine Problem Comm on without Spirit aura and - CHI without [facility] migrainosu Medica l s, not Center intractabl e [id number] Attention Problem Comm on deficit Spirit hyperactiv - CHI ity [facility] (ADHD), [facility] Center type [id number] Primary Problem Comm on osteoarthr Spirit itis of - CHI right knee [facility] [id number] Pain in Problem Common right knee Spirit [facility] [id number] Left Problem Common maxillary Spirit sinusitis - [facility] [id number] Hypertensi Problem Com mon on, Spirit unspecifie - CHI d type [facility] [id number] GERD Problem Common without Spirit esophagiti - CHI s [facility] [id number] Tobacco Problem Commo n use Spirit disorder - [facility] [id number] Other Problem Common chronic Spirit pain - [facility] [id number] Mixed Problem Common hyperlipid Spirit emia - [facility] [id number] Decreased Problem Com mon hearing of Spirit left ear - [facility] [id number] Loss of Problem Common taste Spirit - [facility] Sprain of Sprain of Problem Resolve 2021-10-27 2021-10-27 Memoria ligament ligament d 12-22 23:21:02 23:21:02 l of finger of finger 00:00: Herm faina (disorder) (disorder) 00 Resolved 12/23/2011 Problem 10/27/2021 [facility], RHODA Cedeño, Thomas Renteria [place] History of Past Illness Condition Condition Condition Status Onset Resolution Last Treating Co mments Source Name Details Category Date Date Treatment Clinician Date Headache, Headache, Problem 2021-05-13 2021-05-13 Memoria unspecifie unspecifie 05-10 21:21:08 21:21:08 l d d 17:00: Davidson 05/10/2021 00 [facility] Carpal Carpal Problem 2017-2019-01-26 2019-01-26 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:19:24 15:19:24 l syndrome, syndrome, 04:59: Herm faina right right 41 upper limb upper limb 07/17/2018 01/26/2019 [place] Obstructiv Obstructi Problem 2017-082019-01-11 2019-01-11 Mike e sleep ve sleep 08-28 11:08:48 11:08:48 l apnea apnea 05:23: [place] (adult) (adult) 17 (pediatric (pediatric ) ) 06/28/2018 01/11/2019 [place] Unspecifie Unspecifi Problem 2017-082018-12-03 2018-12-03 Memmarlene d ed 0-11 14:53:30 14:53:30 l mononeurop mononeurop 04:28: Harpreet veliz athy of athy of 42 right right upper limb upper limb 05/22/2018 12/03/2018 [place] Pain in Pain in Problem 2017-082018-12-03 2018-12-03 Memmarlene arm, arm, 0-05 14:53:30 14:53:30 l unspecifie unspecifie 05:00: He rmann d d 00 05/16/2018 12/03/2018 [place] Allergies, Adverse Reactions, Alerts Allergy Allergy Status Severity Reaction(s) Onset Inactive Treating Comm ents Source Name Type Date Date Clinician NO KNOWN Drug Active Univers ALLERGIE Class ity of S [facility] Acetamin drug Active Headache UT [...] Date Stop Date Quantity Comments Source History [facility] Drinks [facility] Alcohol Binge History of Current Smoker Common Spi rit - Tobacco Use [facility] Exposure to 2022-05-06 2022-05-16 Not sure [facility] SARS-CoV-2 00:00:00 14:58:00 (event) Alcohol Comment 2021-10-18 2021-10-18 Ocassionally [facility] 00:00:00 00:00:00 Tobacco use and 2021-10-18 2021-10-18 Smokeless tobacco [facility] exposure 00:00:00 00:00:00 non-user Social History 2018-07-08 2018-07-08 [facility] ranjit 18:40:37 18:40:37 Alcohol intake 2018-05-25 2018-05-25 Current non-drinker M ethodist 00:00:00 00:00:00 of [facility] (finding) Sex Ass[birth year] At [birth year] Spiritism 00:00:00 00:00:00 Hospital Smoking Status Start Date Stop Date Source Unknown if ever smoked [facility] Current Smoker 2022-06-22 00:00:00 Common Spiri t - [facility] nter Ex-smoker 2021-10-18 00:00:00 2021-10-18 00:00:00 [facility] Medications Ordered Filled Start Stop Current Ordering Indication Dosage Frequency Signature Comments Components Source Medication Medication Date Date Medication? Clinician (SIG) Name Name Lisinopril Lisinopril 2021-08 No 1{table QD Lisinopril 40 MG 40 MG 08-22 t} 40 MG 00:00: 00 Ondansetron Ondansetron 2021-08 No 1{table Ondansetro 4 MG 4 MG 08-22 t__ n 4 MG 00:00: e_tongu 00 e_and_a llow_to _dissol ve} Pantoprazol Pantoprazol 2021-08 No 1{table QD Pantoprazo e Sodium 40 e Sodium 40 11 t} le Sodium MG MG 00:00: 40 MG 00 Lisinopril Lisinopril 2021-08 No 1{table QD Lisinopril 40 MG 40 MG 11 t} 40 MG 00:00: 00 Ondansetron Ondansetron 2021-08 No 1{table Ondansetro 4 MG 4 MG 11 t_on_th n 4 MG 00:00: e_tongu 00 e_and_a llow_to _dissol ve} Pantoprazol Pantoprazol 2021-08 No 1{table QD Pantoprazo e Sodium 40 e Sodium 40 08-22 t} le Sodium MG MG 00:00: 40 MG 00 Lisinopril Lisinopril 2021-08 No 1{table QD Lisinopril 40 MG 40 MG 08-22 t} 40 MG 00:00: 00 Ondansetron Ondansetron 2021-08 No 1{table Ondansetro 4 MG 4 MG 11 t_on_th n 4 MG 00:00: e_tongu 00 [...] 10-09 Route: PO, l 21:36: Drug form: [place] TAB, ONCE, Dosing Weight 156, kg, PRN Pain Score 7-10, Start date: 10/09/21 15:36:00 FISHER NET Ofirmev No or = 50 Memori a - kg, Start l 21:19: date: 10/09/21 15:19:00 FISHER NET sugammadex No Route: IV, M emoria (ANES) 10-09 Drug form: l 21:05: [place] DAVE ONCE, Stop date: 10/09/21 15:05:00 FISHER NET Hydromorpho No Notes: David katarzyna ne 10-09 Same as l 21:02: Dilaudid Flumazenil No Notes: Memor ia 10-09 (Same as: l 21:02: Romazicon) Naloxone No Notes: Memoria 10-09 Same as l 21:02: Narcan Ondansetron No 4 mg, Memor ia 10-09 Route: l 21:02: IVP, ONCE, Dosing Weight 156, kg, PRN Nausea & Vomiting, Start date: 10/09/21 15:02:00 FISHER NET ondansetron No Route: IV, Memoria (ANES) 10-09 Drug form: l 21:00: INJ, ONCE, Stop date: 10/09/21 15:00:00 FISHER NET ceFAZolin No Route: IV, Me moria (ANES) 10-09 Drug form: l 20:38: INJ, ONCE, Stop date: 10/09/21 14:38:00 FISHER NET propofol No Route: IV, Mem oria (ANES) 10-09 Drug form: l 20:33: INJ, ONCE, Stop date: 10/09/21 14:33:00 FISHER NET rocuronium No Route: IV, M emoria (ANES) 10-09 Drug form: l 20:33: INJ, ONCE, Stop date: 10/09/21 14:33:00 FISHER NET fentaNYL No Route: IV, Mem oria (ANES) 10-09 Drug form: l 20:33: INJ, ONCE, Stop date: 10/09/21 14:33:00 FISHER NET dexamethaso No Route: IV, Memoria ne (ANES) 10-09 Drug form: l 20:33: INJ, ONCE, Stop date: 10/09/21 14:33:00 FISHER NET lidocaine No Route: IV, Me moria (ANES) 10-09 Drug form: l 20:28: INJ, ONCE, Stop date: 10/09/21 14:28:00 FISHER NET Isolyte S No Route: IV, Me moria PH 7.4 10-09 Total l (ANES) 1000 19:29: Volume: Her jones mL 00 1,000, Start date: 10/09/21 13:29:00 FISHER NET, Stop date: 10/09/21 14:29:00 FISHER NET Epinephrine Yes Notes: David katarzyna 0.01 MG/ML 10-09 (Same as: l / Lidocaine 18:26: Xylocaine H ermann Hydrochlori 00 w/Epinephr de 10 MG/ML ine) Injectable Solution Lidocaine No 1 patch, David katarzyna 0.05 MG/MG 10-09 Route: l Transdermal 15:00: TOP, Sadi n Patch 00 Daily, Drug form: FILM, Start date: 10/09/21 9:00:00 FISHER NET, Duration: 30 day, Stop date: 11/07/21 9:00:00 CDT, 0 Levetiracet No 500 mg, 1 M emoria am 500 MG - tab, l Oral Tablet 15:00: Route: PO, [place] [Keppra] 00 Drug form: TAB, Q12H, Dosing Weight 156, kg, Start date: 10/09/21 9:00:00 FISHER NET, Duration: 30 day, Stop date: 11/07/21 21:00:00 CDT, 0 Hydromorpho No Notes: David katarzyna ne - Same as l 13:57: Dilaudid [place] 00 Reglan No Notes: Memoria -28 (Same as: l 08:15: Reglan) [place] 00 Dilaudid No Notes: Memoria 2-28 Same as l 08:15: Dilaudid Sodium No 1,000 mL, Memori a Chloride - Rate: 75 l 0.9% IV 06:49: ml/hr, [place]ons 1,000 mL 00 Infuse over: 13.3 hr, Route: IV, Dosing Weight 156 kg, Total Volume: 1,000, Start date: 10/09/21 0:49:00 FISHER NET, Duration: 30 day, Stop date: 11/08/21 0:48:00 CDT, BSA: 2.9 m2, 0 Docusate No Notes: Memoria 2-28 (Same as: l 03:00: Colace) [place] (Do Not Crush) sennosides, No Notes: David katarzyna RETIREMENT - (Same as: l 03:00: Senokot) [place] Saline No Notes: Memoria Flush 0.9% - (Same as: l 03:00: BD [place] 00 Posiflush) Sodium No 1,000 mL, Memori a Chloride - Rate: 50 l 0.9% IV 01:57: ml/hr, [place]ons 1,000 mL 00 Infuse over: 20 hr, Route: IV, Dosing Weight 156 kg, Total Volume: 1,000, Start date: 10/08/21 19:57:00 FISHER NET, Duration: 30 day, Stop date: 11/07/21 19:56:00 CDT, BSA: 2.9 m2, 0 Acetaminoph No Notes: Do M emoria en - not exceed l 01:57: 4 gm/day. [place] 00 (Same as: Tylenol) Acetaminoph No Notes: David katarzyna en 325 MG / - (Same as: l Hydrocodone 01:57: [place] Kelly nn Bitartrate 00 325/5) Do 5 MG Oral not exceed Tablet 4gm/day of acetaminop hen. Morphine No Notes: Memoria 2-28 (Same l 01:57: as:MORPhin [place] 00 e Sulfate) Bisacodyl No Notes: Memori a - (Same As: l 01:57: Dulcolax, [place] 00 Bisco-Lax) Ondansetron No Notes: David katarzyna -28 (Same as: l 01:57: Zofran) MEDICATION WASTE Product Size: 4 mg Product Wasted: ___ mg Hydralazine No Notes: David katarzyna 2-28 (Same as: l 01:57: Apresoline ) Push over 5 minutes Labetalol No 10 mg, 2 David katarzyna 2-28 mL, Route: l 01:57: IVP, Drug form: INJ, Q15Min, Dosing Weight 156, kg, PRN Hypertensi on, Start date: 10/08/21 19:57:00 FISHER NET, Duration: 3 doses or times, Stop date: Limited # of times, 0 Saline No Notes: Memoria Flush 0.9% 10-09 (Same as: l 01:57: BD [place] 00 Posiflush) Insulin No Notes: Memoria regular - (Same as: l 01:57: Humulin R) Roll in palms of hands gently; Do not shake vigorously . WASTE: F/P - Black; E - Municipal Trash Bin Stable for 31 days at room temperatur e Expires in days from ____Date Dilaudid No Notes: Memoria 2-28 Same as l 01:30: Dilaudid [place] 00 Levetiracet Yes 500 mg = 1 Memoria am 500 MG 2-24 tab, PO, l Oral Tablet 13:52: Q12H, # 60 [place] [Keppra] 00 tab, 0 Refill(s), Pharmacy: [id number], 190.5, cm, 10/03/21 6:40:00 FISHER NET, Height, 159.3, kg, 10/03/21 6:40:00 FISHER NET, Weight docusate Yes 2 cap, PO, Mem oria sodium 50 2-24 QPM, X 10 l MG / 13:52: day, # 20 [place] sennosides, 00 cap, 0 RETIREMENT 8.6 MG Refill(s), Oral Pharmacy: [id number], 190.5, cm, 10/03/21 6:40:00 FISHER NET, Height, 159.3, kg, 10/03/21 6:40:00 FISHER NET, Weight magnesium Yes 8.725 gm = Me moria citrate 2-24 150 ml, l 58.2 MG/ML 13:52: PO, ONCE, He rmann Oral 00 if no Solution bowel movement in couple days, # 300 ml, 0 Refill(s), Pharmacy: [id number], 190.5, cm, 10/03/21 6:40:00 FISHER NET, Height, 159.3, kg, 10/03/21 6:40:00 FISHER NET, Weight POLYETHYLEN Yes 17 gm, PO, Memoria E GLYCOL 2-24 Daily, X l 3350 142 13:52: 10 day, # Herm faina MG/ML Oral 00 170 gm, 0 Solution Refill(s), [Miralax] Pharmacy: [facility] #[id number], 190.5, cm, 10/03/21 6:40:00 FISHER NET, Height, 159.3, kg, 02/22/22 6:40:00 FISHER NET, Weight Ondansetron No 4 mg = 1 Me moria 4 MG Oral 2-24 tab, PO, l Tablet 13:52: Q8H, PRN [place] [Zofran] 00 Nausea/vom iting, X 3 day, # 10 tab, 0 Refill(s), Pharmacy: [id number], 190.5, cm, 10/03/21 6:40:00 FISHER NET, Height, 159.3, kg, 10/03/21 6:40:00 FISHER NET, Weight Acetaminoph Yes 1 tab, PO, Memoria en 325 MG / 2-24 Q4-6H, PRN l Hydrocodone 13:52: Pain Score [place] Bitartrate 00 4-6, X 5 5 MG Oral day, # 30 Tablet tab, 0 [[place] Refill(s), 5/325] other heparin No Notes: Memoria 5000 2-23 porcine l units/mL 22:00: heparin Sadi n injectable 00 solution Saline No Notes: Memoria Flush 0.9% 2-23 Same as: l 03:00: BD Posiflush Sterile Levetiracet No Notes: David katarzyna am 500 MG 2-23 (Same l Oral Tablet 03:00: as:Keppra) [place] [Keppra] 00 Cefazolin No Notes: Memori a 2-23 (Same as l 02:00: Ancef) Docusate No Notes: Memoria 2-22 (Same as: l 23:00: Colace) (Do Not Crush) sennosides, No Notes: David katarzyna RETIREMENT 2-22 (Same as: l 23:00: Senokot) Famotidine No Notes: Memor ia 20 MG Oral 2-22 (Same as: l Tablet 23:00: Pepcid) Hydromorpho No 0.5 mg, Mem oria ne -22 Route: l 20:05: IVP, ONCE, Dosing Weight 159.3, kg, Priority: STAT, Start date: 10/03/21 14:05:00 FISHER NET, Stop date: 10/03/21 14:05:00 FISHER NET metoprolol No Route: IV, M emoria (ANES) 10-03 Drug form: l 19:20: INJ, ONCE, [place] Stop date: 10/03/21 13:20:00 FISHER NET Oxycodone No 10 mg, Memori a Hydrochlori 10-03 Route: PO, l de 5 MG 19:16: Drug form: Herm faina Oral Tablet 00 TAB, Q4H, Dosing Weight 159.3, kg, PRN Pain Score 7-10, Start date: 10/03/21 13:16:00 FISHER NET, Duration: 30 day, Stop date: 11/02/21 13:15:00 CDT sugammadex No Route: IV, M emoria (ANES) 10-03 Drug form: l 18:37: SOLN, [place] 00 ONCE, Stop date: 10/03/21 12:37:00 FISHER NET ondansetron No Route: IV, Memoria (ANES) 10-03 Drug form: l 18:22: INJ, ONCE, [place] 00 Stop date: 10/03/21 12:22:00 FISHER NET Dexamethaso No Notes: David katarzyna ne - Give with l 18:00: food. (Same As: Decadron) Hydralazine No Notes: David katarzyna - (Same as: l 17:50: Apresoline ) Push over 5 minutes Ondansetron No Notes: David katarzyna -22 (Same as: l 17:50: Zofran) [place] 00 MEDICATION WASTE Product Size: 4 mg Product Wasted: ___ mg Acetaminoph No Notes: Do M emoria en 325 MG / 10-03 not exceed l Hydrocodone 17:50: 4gm/day of [place] Bitartrate 00 acetaminop 10 MG Oral hen. (Same Tablet as: [place] [[place] 325/10) 10/325] Dilaudid No Notes: Memoria 2-22 Same as l 17:50: Dilaudid Benadryl No Notes: Memoria 2-22 (Same as: l 17:50: Benadryl) [place] phenol No Notes: Memoria 2-22 Chlorasept l 17:50: ic [place] (Same as: Chlorasept ic, Sore Throat [place]) WASTE: F/P - Black; E - Municipal [...] Total Volume: 1,000, Start date: 10/03/21 11:50:00 FISHER NET, Duration: 30 day, Stop date: 11/02/21 11:49:00 CDT, BSA: 2.93 m2, 0 Labetalol No 10 mg, 2 David katarzyna 2-22 mL, Route: l 17:50: IVP, Drug form: INJ, Q15Min, Dosing Weight 159.3, kg, PRN Hypertensi on, Start date: 10/03/21 11:50:00 FISHER NET, Duration: 3 doses or times, Stop date: 10/04/21 0:00:00 FISHER NET, 0 lidocaine No Route: IV, Me moria (ANES) 2- Drug form: l 16:45: INJ, ONCE, Stop date: 10/03/21 10:45:00 FISHER NET rocuronium No Route: IV, M emoria (ANES) 10-03 Drug form: l 16:45: INJ, ONCE, Stop date: 10/03/21 10:45:00 FISHER NET dexamethaso No Route: IV, Memoria ne (ANES) - Drug form: l 16:45: INJ, ONCE, Stop date: 10/03/21 10:45:00 FISHER NET phenylephri No Route: IV, Memoria ne (ANES) 10-03 Drug form: l 16:40: INJ, ONCE, Stop date: 10/03/21 10:40:00 FISHER NET Hydralazine No Notes: David katarzyna 2-22 (Same as: l 16:37: Apresoline ) Push over 5 minutes Labetalol No 10 mg, 2 David katarzyna 2-22 mL, Route: l 16:37: IVP, Drug form: INJ, Q5Min, Dosing Weight 159.3, kg, PRN Elevated BP, Start date: 10/03/21 10:37:00 FISHER NET, Duration: 5 doses or times, Stop date: 10/04/21 0:00:00 FISHER NET, 0 Oxycodone No Notes: Memori a Hydrochlori - (Same as: l de 5 MG 16:37: Roxicodone Herm faina Oral Tablet ) Hydromorpho No Notes: David katarzyna ne 2-22 Same as l 16:37: Dilaudid Flumazenil No Notes: Memor ia 2- (Same as: l 16:37: Romazicon) Naloxone No Notes: Memoria 2-22 Same as l 16:37: Narcan Ondansetron No Notes: David katarzyna 10-03 (Same as: l 16:37: Zofran) MEDICATION WASTE Product Size: 4 mg Product Wasted: ___ mg propofol No Route: IV, Mem oria (ANES) 10-03 Drug form: l 16:35: INJ, ONCE, Stop date: 10/03/21 10:35:00 FISHER NET fentaNYL No Route: IV, Mem oria (ANES) 10-03 Drug form: l 16:35: INJ, ONCE, Stop date: 10/03/21 10:35:00 FISHER NET midazolam No Route: IV, Me moria (ANES) 10-03 Drug form: l 16:24: SOLN, ONCE, Stop date: 10/03/21 10:24:00 FISHER NET ceFAZolin No Route: IV, Me moria (ANES) 10-03 Drug form: l 16:24: INJ, ONCE, Stop date: 10/03/21 10:24:00 FISHER NET levETIRAcet No Route: IV, Memoria am (ANES) 10-03 Drug form: l 100 mg 16:20: INJ, Start date: 10/03/21 10:20:00 FISHER NET, Stop date: 10/03/21 11:20:00 FISHER NET propofol No Route: IV, Mem oria (ANES) 10 10-03 Drug form: l mg 15:26: INJ, Start Lyons 00 date: 10/03/21 9:26:00 FISHER NET, Stop date: 10/03/21 10:26:00 FISHER NET Isolyte S No Route: IV, Me moria PH 7.4 10-03 Total l (ANES) 1000 14:26: Volume: Her jones mL 00 1,000, Start date: 10/03/21 8:26:00 FISHER NET, Stop date: 10/03/21 9:26:00 FISHER NET Isolyte S No Notes: Memori a PH 7.4 10-03 (Same as: l 1,000 mL 12:35: Isolyte S Herm faina 00 PH7.4, Normosol-R PH 7.4, Plasma-Lyt e A ) Acetaminoph No 1,000 mg, M emoria en 10-03 Route: PO, l 12:35: Drug form: Lyons 00 TAB, PRE OP, Dosing Weight 160.3, kg, Priority: NOW, Start date: 10/03/21 6:35:00 FISHER NET, Duration: 1 doses or times NS + [...] Codeine #3] Zofran No PRN, 0 Memoria - Refill(s) l 18:02: [place] 00 Sodium 0 No 250 mL, Memoria Chloride 10-02 Rate: To l 0.9% 17:06: prime line Lyons (titrate) 00 and flush 250 mL remaining blood products., Dosing Weight 160.3, kg, Route: IV, Total Volume: 250, Start Date: 10/02/21 11:06:00 FISHER NET, Duration: 1 day, Stop date: 10/03/21 11:05:00 FISHER NET, Replace Every: 24 hr, 0 Acetaminoph No 1 tab, David katarzyna en 325 MG / 30 Route: PO, l Hydrocodone 12:17: Drug Form: [place] Bitartrate 00 TAB, 5 MG Oral Dosing Tablet Weight 139.409, kg, ONCE, STAT, Start date: 05/11/21 7:17:00 CDT, Stop date: 05/11/21 7:17:00 CDT Acetaminoph 1-0 No 1,000 mg, M emoria en 05-11 [...] infused by Radiology Staff ONLY" ProAir HFA 0 Yes INHALE 2 UT 108 (90 8-26 [...] pirit one) one) 00:00: - [facility] 00 [facility] Kenalog Kenalog 2019-08 No 40mg Common (Triamcinol (Triamcinol 0-12 S pirit one) one) 00:00: - [facility] Kenalog Kenalog 2019-08 No 40mg Common (Triamcinol (Triamcinol 0-12 S pirit one) one) 00:00: - [facility] Kenalog Kenalog 2019-08 No 40mg Common (Triamcinol (Triamcinol 0-12 S pirit one) one) 00:00: - [facility] Kenalog Kenalog 2019-08 No 40mg Common (Triamcinol (Triamcinol 0-12 S pirit one) one) 00:00: - [facility] Amoxicillin Amoxicillin 2019-08 2020- No 1{table BID Amoxicilli -Pot -Pot 0-12 10-22 t} n-Pot Clavulanate Clavulanate 00:00: 00:00 Clavulanat 875-125 MG 875-125 MG 00 :00 e 875-125 MG Promethazin Promethazin 2019-0 2020- No Norah 1 tablet Common e HCl e HCl 4-28 05-03 [place] as needed Spirit 00:00: 00:00 for n/v - [facility] 00 :00 [facility] Bupivicaine Bupivicaine 2019-0 No 4mL Common Glover Glover 4-06 Spirit 00:00: - [facility] 00 [facility] Kenalog Kenalog No 40mg Common (Triamcinol (Triamcinol 4-06 S pirit one) one) 00:00: - [facility] 00 [facility] Bupivicaine Bupivicaine 2020-0 No 4mL Common Glover Glover 4-06 Spirit 00:00: - [facility] 00 [facility] Kenalog Kenalog 2020-0 No 40mg Common (Triamcinol (Triamcinol 4-06 S pirit one) one) 00:00: - [facility] 00 [facility] Bupivicaine Bupivicaine 2020-0 No 4mL Common Glover Glover 4-06 Spirit 00:00: - [facility] 00 [facility] Kenalog Kenalog 2020-0 No 40mg Common (Triamcinol (Triamcinol 4-06 S pirit one) one) 00:00: - [facility] 00 [facility] Bupivicaine Bupivicaine 2020-0 No 4mL Common Glover Glover 4-06 Spirit 00:00: - [facility] 00 [facility] Kenalog Kenalog 2020-0 No 40mg Common (Triamcinol (Triamcinol 4-06 S pirit one) one) 00:00: - [facility] 00 [facility] Bupivicaine Bupivicaine 2020-0 No 4mL Common Glover Glover 4-06 Spirit 00:00: - [facility] 00 [facility] Kenalog Kenalog 2020-0 No 40mg Common (Triamcinol (Triamcinol 4-06 S pirit one) one) 00:00: - [facility] 00 [facility] ondansetron 2020-0 Yes [id number] 4mg Take 1 [facility] (ZOFRAN 3-11 tablet by ity of ODT) 4 mg 00:00: mouth [place] disintegrat 00 every 8 Medic al ing tablet (eight) Branch hours as needed for Nausea and Vomiting (N/V). benzonatate 2020-0 Yes [id number] 200mg Take 1 [facility] 200 mg 3-11 capsule by ity of capsule 00:00: mouth 3 [place] 00 (three) Medical times Branch daily as needed for Cough for up to 20 doses. ibuprofen 2020-0 Yes [id number] 600mg Take 1 U nivers 600 mg [...] Pain Score 4-6, Start date: 07/09/18 16:24:00 FISHER NET Promethazin 2017-08 No Notes: Do M emoria e 09-08 not give l 21:26: IV push. (Same as: Phenergan) Lorazepam 2017-08 No Notes: Memori a 09-08 (Same as: l 21:26: Ativan) Dexamethaso 2017-08 No Notes: David katarzyna ne 09-08 Concentrat l 21:26: ion: 00 4mg/ml Racepinephr 2017-08 No Notes: David [...] ne 09-08 Same as: l 21:26: Dilaudid Davidson 00 Naloxone 2017-08 No Notes: Memoria 09-08 Same as l 21:26: Narcan Ephedrine 2017-08 No Notes: Memori a 09-08 final l 21:26: concentrat Lyons 00 ion 5 mg/mL Acetaminoph 2017-08 No Notes: Max Memoria en 09-08 acetaminop l 21:26: hen 4000 Davidson 00 mg/day (4 gm/day). (Same as: Tylenol Extra Strength) Fentanyl 2017-08 No Notes: Memoria 09-08 (Same as: l 21:26: Sublimaze) Preservati ve free. Hydralazine 2017-08 No Notes: David katarzyna 09-08 (Same as: l 21:26: Apresoline [place]ons 00 ) Push over 5 minutes Labetalol 2017-08 No 10 mg, 2 David katarzyna 09-08 mL, Route: l 21:26: IVP, Drug form: INJ, Q5Min, Dosing Weight 139.409, kg, PRN Elevated BP, Start date: 07/09/18 15:26:00 FISHER NET, Duration: 5 doses or times, Stop date: [...] 21:19: INJ, ONCE, Stop date: 07/09/18 15:19:00 FISHER NET ceFAZolin 2017-08 No Route: IV, Me moria (ANES) 09-08 Drug form: l 20:43: INJ, ONCE, Stop date: 07/09/18 14:43:00 FISHER NET lidocaine 2017-08 No Route: IV, Me moria (ANES) 09-08 Drug form: l 20:43: INJ, ONCE, Stop date: 07/09/18 14:43:00 FISHER NET propofol 2017-08 No Route: IV, Mem oria (ANES) 09-08 Drug form: l 20:43: INJ, ONCE, Stop date: 07/09/18 14:43:00 FISHER NET fentaNYL 2017-08 No Route: IV, Mem oria (ANES) 09-08 Drug form: l 20:43: INJ, ONCE, Stop date: 07/09/18 14:43:00 FISHER NET metoclopram 2017-08 No Route: IV, Memoria debbie (ANES) 09-08 Drug form: l 20:38: INJ, ONCE, Stop date: 07/09/18 14:38:00 FISHER NET famotidine 2017-08 No Route: IV, M emoria (ANES) 09-08 Drug form: l 20:38: INJ, ONCE, Stop date: 07/09/18 14:38:00 FISHER NET dexamethaso 2017-08 No Route: IV, Memoria ne (ANES) 09-08 Drug form: l 20:38: INJ, ONCE, Stop date: 07/09/18 14:38:00 FISHER NET midazolam 2017-08 No Route: IV, Me moria (ANES) 09-08 Drug form: l 20:38: SOLN, [place]ons 00 ONCE, Stop date: 07/09/18 14:38:00 FISHER NET Lactated 2017-08 No Route: IV, Mem oria Ringers 09-08 Total l Injection 19:45: Volume: Kelly nn IV (ANES) 00 1,000, 1000 mL Start date: 07/09/18 13:45:00 FISHER NET, Stop date: 07/09/18 14:45:00 FISHER NET Famotidine 2017-08 No Notes: Memor ia 40 MG Oral 09-08 (Same as: l Tablet 19:37: Pepcid) Davidson [Pepcid] 00 Celebrex 2017-08 No 200 mg, Memori a 09-08 Route: PO, l 19:00: Drug form: Davidson 00 CAP, ONCALL, Dosing Weight 140.909, kg, Start date: 07/09/18 13:00:00 FISHER NET, Duration: 30 day, Stop date: 08/08/18 12:59:00 FISHER NET Lidocaine 2017-08 No Notes: Memori a Hydrochlori 09-08 Preservati l de 10 MG/ML 19:00: ve free. He rmann Injectable 00 (Same as: Solution Xylocaine MPF) Famotidine 2017-08 No Notes: Memor ia 09-08 (Same as: l 19:00: Pepcid) Lyons 00 Can be dilute in 5-10cc NS IVP: Slow IV push over at least 2 minutes. Zofran 2017-08 No 4 mg, Memoria 09-08 Route: l 18:53: IVP, Drug Davidson form: INJ, ONCE, Dosing Weight 139.409, kg, Priority: STAT, Start date: 07/09/18 12:53:00 FISHER NET, Stop date: 07/09/18 12:53:00 FISHER NET Tylenol 2017-08 No 1,000 mg, Memor ia 09-08 Route: PO, l 18:20: ONCE, Davidson 00 Dosing Weight 140.909, kg, Priority: STAT, Start date: 07/09/18 12:20:00 FISHER NET, Stop date: 07/09/18 12:20:00 FISHER NET Insulin 2017-08 No Notes: Memoria Lispro 09-08 (Same as: l 18:18: Humalog ) Lyons 00 Roll in palms of hands gently; Do not shake `vigorousl y. "Single Patient Use Only " WASTE: F/P - Black; E - Municipal Trash Bin Stable for 28 days at room temperatur e. Expires in days from ____Date Calcium 2017-08 No 1,000 mL, Memor ia Chloride 09-08 Rate: 25 l 0.0014 18:18: ml/hr, Lyons MEQ/ML / 00 Infuse Potassium over: 40 Chloride hr, Route: 0.004 IV, Dosing MEQ/ML / Weight Sodium 140.909 Chloride kg, Total 0.103 Volume: MEQ/ML / 1,000, Sodium Start Lactate date: 0.028 07/09/18 MEQ/ML 12:18:00 Injectable FISHER NET, Solution Duration: 30 day, Stop date: 08/08/18 12:17:00 FISHER NET, 2.75, m2 ceFAZolin + 2017-08 No Notes: David katarzyna sterile 09-08 (Same As: l water 30 mL 12:00: Ancef, Herm faina 00 Kefzol) MEDICATION WASTE Product Size: 1000 mg Product Wasted: ___ mg Lactated 2017-08 No 1,000 mL, David katarzyna Ringers 09-08 Rate: KVO l Injection 12:00: rate, Davidson IV 1,000 mL 00 Route: IV, Dosing Weight 140.909 kg, Total Volume: 1,000, Start date: 07/09/18 6:00:00 FISHER NET, Duration: 30 day, Stop date: 08/08/18 5:59:00 FISHER NET, 2.75, m2 Norvasc 2017-08 Yes See Memoria 09-07 Instructio l 18:43: ns, PO Lyons 00 Daily, 0 Refill(s) Amlodipine 2017-08 Yes [...] Notes: Memoria 0-05 (Same l 11:34: as:MORPhin Lyons 00 e Sulfate) Dexamethaso 2017-08 No 8 [...] 1 tablet Commo n [place] as needed [facility] Losartan Losartan Yes Norah 1 tablet C ommon Potassium-H Potassium-H [place] [facility] Hydrocodone Hydrocodone Yes Norah 1 tablet Common -Acetaminop -Acetaminop [place] as needed Spirit hen hen [facility] Adderall XR Adderall XR Yes Norah 1 capsule Common [place] in the [facility] morning [facility] Omeprazole Omeprazole Yes Norah 1 capsule Common [place] [address] [facility] before [facility] Dicyclomine Dicyclomine Yes Norah 1 tablet Common HCl HCl [place] [facility] Omeprazole Omeprazole No QD Omeprazole 40 [...] H ealth Over Vaccination 00:00:00 (PURPLE-DILUTE) Jaci Beatty 2020-05-23 Completed [facility] - (Triamcinolone) (Triamcinolone) 11:35:00 [facility] 2020-05-23 Completed [facility] - (Triamcinolone) (Triamcinolone) 11:35:00 [facility] Jaci Beatty 2020-05-23 Completed [facility] - (Triamcinolone) (Triamcinolone) 11:35:00 [facility] 2020-05-23 Completed [facility] - (Triamcinolone) (Triamcinolone) 11:35:00 [facility] Kenalog 2020-05-23 Completed [facility] - (Triamcinolone) (Triamcinolone) 11:35:00 [facility] Jaci Beatty 2020-05-23 Completed [facility] - (Triamcinolone) (Triamcinolone) 11:35:00 [facility] Kenalog Kenalog 2020-05-23 Completed [facility] - (Triamcinolone) (Triamcinolone) 11:35:00 [facility] Bupivicaine Glover Bupivicaine Glover 2019-11-16 Completed [facility] - 11:23:00 [facility] Bupivicaine Glover Bupivicaine Glover 2019-11-16 Completed [facility] - 11:23:00 [facility] Bupivicaine Glover Bupivicaine Glover 2019-11-16 Completed [facility] - 11:23:00 [facility] Bupivicaine Glover Bupivicaine Glover 2019-11-16 Completed [facility] - 11::00 [facility] Bupivicaine Glover Bupivicaine Glover 2019-11-16 Completed [facility] - 11:23:00 [facility] Bupivicaine Glover Bupivicaine Glover 2019-11-16 Completed [facility] - 11::00 [facility] Bupivicaine Glover Bupivicaine Glover 2019-11-16 Completed [facility] - 11::00 [facility] Kenalog Kenalog 2019-11-16 Completed [facility] - (Triamcinolone) (Triamcinolone) 11::00 [facility] Kenalog Kenalog 2019-11-16 Completed [facility] - (Triamcinolone) (Triamcinolone) 11::00 [facility] Kenalog Kenalog 2019-11-16 Completed [facility] - (Triamcinolone) (Triamcinolone) 11:22:00 [facility] Kenalog Kenalog 2019-11-16 Completed [facility] - (Triamcinolone) (Triamcinolone) 11:22:00 [facility] Kenalog Kenalog 2019-11-16 Completed [facility] - (Triamcinolone) (Triamcinolone) 11:22:00 [facility] Kenalog Kenalog 2019-11-16 Completed [facility] - (Triamcinolone) (Triamcinolone) 11:22:00 [facility] Kenalog Kenalog 2019-11-16 Completed [facility] - (Triamcinolone) (Triamcinolone) 11:22:00 [facility] Fluzone Quadrivalent 2018-06-03 Completed [facility] 0.5 ML Intramuscular 14:35:00 Suspension Vital Signs Vital Name Observation Time Observation Value Comments Source Body height 2022-07-27 190.5 cm [facility] 14:41:00 Body weight 2022-07-27 158.305 kg [facility] 14:41:00 BMI 2022-07-27 43.62 kg/m2 [facility] 14:41:00 height 2022-06-22 72 [in_i] [facility] - 11:20:00 [facility] weight 2022-06-22 343 [lb_av] [facility] - 11:20:00 [facility] temperature 2022-06-22 96.5 [degF] [facility] Spirit - 11:20:00 [facility] bmi 2022-06-22 46.51 kg/m2 [facility] Spirit - 11:20:00 [facility] oximetry 2022-06-22 97 % [facility] Spirit - 11:20:00 [facility] respiratory rate 2022-06-22 18 /min [facility] it - 11:20:00 [facility] blood pressure 2022-06-22 141 mm[Hg] [facility] - systolic 11:20:00 [facility] blood pressure 2022-06-22 74 mm[Hg] [facility] - diastolic 11:20:00 [facility] Systolic blood 2022-05-16 110 mm[Hg] [facility] pressure 20:28:00 Diastolic blood 2022-05-16 72 mm[Hg] [facility] pressure 20:28:00 Heart rate 2022-05-16 60 /min [facility] 20:28:00 Body temperature 2022-05-16 36.11 Chrissie [facility] 20:17:00 Body height 2022-05-16 190.5 cm [facility] 20:17:00 Body weight 2022-05-16 158.305 kg [facility] 20:17:00 BMI 2022-05-16 43.62 kg/m2 [facility] 20:17:00 height 2021-04-06 72 [in_i] [facility] - 14:30:00 [facility] weight 2021-04-06 319 [lb_av] [facility] - 14:30:00 [facility] temperature 2021-04-06 98 [degF] [facility] - 14:30:00 [facility] bmi 2021-04-06 43.26 kg/m2 [facility] - 14:30:00 [facility] blood pressure 2021-04-06 121 mm[Hg] [facility] - systolic 14:30:00 [facility] blood pressure 2021-04-06 76 mm[Hg] [facility] - diastolic 14:30:00 [facility] height 2020-07-12 72 [in_i] [facility] - 16:30:00 [facility] weight 2020-07-12 318.3 [lb_av] [facility] - 16:30:00 [facility] temperature 2020-07-12 97.5 [degF] [facility] - 16:30:00 [facility] bmi 2020-07-12 43.16 kg/m2 [facility] - 16:30:00 [facility] oximetry 2020-07-12 97 % [facility] - 16:30:00 [facility] respiratory rate 2020-07-12 18 /min [facility] - 16:30:00 [facility] blood pressure 2020-07-12 129 mm[Hg] [facility] - systolic 16:30:00 [facility] blood pressure 2020-07-12 64 mm[Hg] [facility] - diastolic 16:30:00 [facility] height 2020-05-23 72 [in_i] [facility] - 11:20:00 [facility] weight 2020-05-23 314.4 [lb_av] [facility] - 11:20:00 [facility] temperature 2020-05-23 97.2 [degF] [facility] - 11:20:00 [facility] bmi 2020-05-23 42.64 kg/m2 [facility] - 11:20:00 [facility] oximetry 2020-05-23 98 % [facility] - 11:20:00 [facility] respiratory rate 2020-05-23 18 /min [facility] it - 11:20:00 [facility] blood pressure 2020-05-23 140 mm[Hg] [facility] - systolic 11:20:00 [facility] blood pressure 2020-05-23 74 mm[Hg] [facility] - diastolic 11:20:00 [facility] Heart Rate 2021-10-10 [facility] [...] ermann 10:20:37 Temperature Oral 2021-10-10 98.1 F [facility] He rmann (F) 10:19:31 Respitory Rate 2021-10-10 [facility] 05:19:58 Systolic (mm Hg) 2021-10-10 [facility] 05:19:44 Diastolic (mm Hg) 2021-10-10 [facility] 05:19:44 Temperature Oral 2021-10-10 98.7 F [facility] Harpreet rmann (F) 05:18:56 Respitory Rate 2021-10-10 [facility] [...] n 09:21:01 Temperature Oral 2021-10-09 98.4 F [facility] He rmann (F) 09:20:59 Systolic (mm Hg) [...] n 23:44:00 Temperature Oral 2021-10-08 98.6 F [facility] He rmann (F) 23:44:00 Heart Rate 2021-10-05 [facility] 13:48:13 Respitory Rate 2021-10-05 [facility] 13:48:13 Systolic (mm Hg) 2021-10-05 [facility] 13:47:41 Diastolic (mm Hg) 2021-10-05 [facility] 13:47:41 Heart Rate 2021-10-05 [facility] 13:47:41 Temperature Oral 2021-10-05 99.2 F [facility] He rmann (F) 13:47:17 Heart Rate 2021-10-05 [facility] [...] Herm faina 12:40:00 Height 2021-10-02 190.5 cm [facility] 16:30:00 Weight 2021-10-02 [facility] 16:30:00 BMI Calculated 2021-10-02 [facility] 16:30:00 Systolic (mm Hg) 2021-05-11 [facility] He rmann 13:50:00 Diastolic (mm Hg) 2021-05-11 [facility] ermann 13:50:00 Temperature Oral 2021-05-11 98.5 F [facility] Harpreet rmann (F) 13:50:00 Systolic (mm Hg) 2021-05-11 [facility] rmann 12:22:00 Diastolic (mm Hg) 2021-05-11 [facility] ermann 12:22:00 Systolic (mm Hg) 2021-05-11 [facility] rmann 11:21:00 Diastolic (mm Hg) 2021-05-11 [facility] ermann 11:21:00 Respitory Rate 2021-05-11 [facility] 11:21:00 Respitory Rate 2021-05-11 [facility] 10:42:00 Respitory Rate 2021-05-11 [facility] 09:02:00 Temperature Oral 2021-05-11 98.4 F [facility] Harpreet rmann (F) 08:30:00 Heart Rate 2021-05-11 [facility] 06:50:00 Heart Rate 2021-05-11 [facility] 06:18:00 Heart Rate 2021-05-11 [facility] 00:55:00 Temperature Oral 2021-05-11 98.2 F [facility] rmann (F) 00:55:00 BP Systolic 2018-10-02 155 mm[Hg] Location: [facility] 15:26:00 Position: Sitting BP Diastolic 2018-10-02 88 mm[Hg] Location: [facility] 15:26:00 Position: Sitting Height 2018-10-02 75 [in_us] [facility] 15:26:00 Weight 2018-10-02 302 [lb_av] [facility] 15:26:00 Body Mass Index 2018-10-02 37.75 [...] BP Systolic 2018-06-03 136 mm[Hg] Location: [place]; [facility] 14:09:00 Position: Sitting BP Diastolic 2018-06-03 75 mm[Hg] Location: [place]; [facility] 14:09:00 Position: Sitting Height 2018-06-03 75 [in_us] [facility] 14:09:00 Weight 2018-06-03 317 [lb_av] [facility] 14:09:00 Body Mass Index 2018-06-03 39.62 [...] [facility] 11:50:00 Respitory Rate 2018-05-16 [facility] 11:50:00 Temperature Oral 2018-05-16 98.8 F [facility] Harpreet rmann (F) 10:56:00 Weight 2018-05-16 Magdalene Avitia n 10:56:00 Procedures Procedure Date / Time Performing Clinician Source Performed REFERRAL- REQUEST/RESPONSE 2021-03-30 05:01:00 Doctor Unassigned , [facility] Myringotomy 2020-10-10 00:00:00 [facility] Her jones [U] XRAY KNEE 4 OR MORE 2018-07-24 00:00:00 [facility] VWS RIGHT [id number] Emg/Ncv 2018-06-20 00:00:00 [facility] Sleep Lab - Sleep 2018-06-03 00:00:00 [facility] Study Split Night Ulnar nerve decompression 2015-08-12 00:00:00 Me morial [place] Sadi n Extraction of wisdom tooth Memor ial [place] App[facility] History of Cubital tunnel [facility] repair History of Wrist surgery [facility] Plan of Care Planned Activity Planned Date Details Comments Source Future Scheduled Test 2022-09-18 COVID-19 VACCINE [facility] 11:55:25 (#1) [code = COVID-19 VACCINE (#1)] Future Scheduled Test 2022-09-18 INFLUENZA VACCINE [facility] 11:55:25 [code = INFLUENZA VACCINE] Future Scheduled Test 2022-09-18 INFLUENZA VACCINE [facility] 11:55:25 [code = INFLUENZA VACCINE] Future Scheduled Test 2022-09-18 COVID-19 VACCINE [facility] 11:55:25 (#1) [code = COVID-19 VACCINE (#1)] Future Scheduled Test 2022-09-07 COVID-19 VACCINE [facility] 19:13:43 (#1) [code = COVID-19 VACCINE (#1)] Future Scheduled Test 2022-09-07 INFLUENZA VACCINE [facility] 19:13:43 [code = INFLUENZA VACCINE] Future Scheduled Test 2022-07-28 COVID-19 VACCINE [facility] 16:56:35 (#1) [code = COVID-19 VACCINE (#1)] Future Scheduled Test 2022-07-28 INFLUENZA VACCINE [facility] 16:56:35 [code = INFLUENZA VACCINE] Future Scheduled Test 2022-07-28 COVID-19 VACCINE [facility] 16:56:35 (#1) [code = COVID-19 VACCINE (#1)] Future Scheduled Test 2022-07-28 INFLUENZA VACCINE [facility] 16:56:35 [code = INFLUENZA VACCINE] Future Scheduled Test 2022-04-13 HEPATITIS B Method [facility] 21:38:54 VACCINES (1 of 3 - 3-dose series) [code = HEPATITIS B VACCINES (1 of 3 - 3-dose series)] Future Scheduled Test 2022-04-13 COVID-19 VACCINE [facility] 21:38:54 (#1) [code = COVID-19 VACCINE (#1)] Future Scheduled Test 2022-04-13 INFLUENZA VACCINE [facility] 21:38:54 [code = INFLUENZA VACCINE] Future Scheduled Test 2022-04-13 HEPATITIS B Method [facility] 21:38:54 VACCINES (1 of 3 - 3-dose series) [code = HEPATITIS B VACCINES (1 of 3 - 3-dose series)] Future Scheduled Test 2022-04-13 COVID-19 VACCINE [facility] 21:38:54 (#1) [code = COVID-19 VACCINE (#1)] Future Scheduled Test 2022-04-13 INFLUENZA VACCINE [facility] 21:38:54 [code = INFLUENZA VACCINE] Future Scheduled Test 2022-04-13 HEPATITIS B Method [facility] 21:38:54 VACCINES (1 of 3 - 3-dose series) [code = HEPATITIS B VACCINES (1 of 3 - 3-dose series)] Future Scheduled Test 2022-04-13 COVID-19 VACCINE [facility] 21:38:54 (#1) [code = COVID-19 VACCINE (#1)] Future Scheduled Test 2022-04-13 INFLUENZA VACCINE [facility] 21:38:54 [code = INFLUENZA VACCINE] Future Scheduled Test 2022-04-13 HEPATITIS B Method [facility] 21:38:54 VACCINES (1 of 3 - 3-dose series) [code = HEPATITIS B VACCINES (1 of 3 - 3-dose series)] Future Scheduled Test 2022-04-13 COVID-19 VACCINE [facility] 21:38:54 (#1) [code = COVID-19 VACCINE (#1)] Future Scheduled Test 2022-04-13 INFLUENZA VACCINE [facility] 21:38:54 [code = INFLUENZA VACCINE] Future Scheduled Test 2022-04-13 HEPATITIS B Method [facility] 21:38:54 VACCINES (1 of 3 - 3-dose series) [code = HEPATITIS B VACCINES (1 of 3 - 3-dose series)] Future Scheduled Test 2022-04-13 COVID-19 VACCINE [facility] 21:38:54 (#1) [code = COVID-19 VACCINE (#1)] Future Scheduled Test 2022-04-13 INFLUENZA VACCINE [facility] 21:38:54 [code = INFLUENZA VACCINE] Future Scheduled Test 2022-04-13 HEPATITIS B Method [facility] 21:38:54 VACCINES (1 of 3 - 3-dose series) [code = HEPATITIS B VACCINES (1 of 3 - 3-dose series)] Future Scheduled Test 2022-04-13 COVID-19 VACCINE [facility] 21:38:54 (#1) [code = COVID-19 VACCINE (#1)] Future Scheduled Test 2022-04-13 INFLUENZA VACCINE [facility] 21:38:54 [code = INFLUENZA VACCINE] Diagnostic Test 2018-06-20 Emg/Ncv [code = [facility] 00:00:00 Emg/Ncv] Diagnostic Test 2018-06-20 Emg/Ncv [code = [facility] 00:00:00 Emg/Ncv] Future Scheduled Test COVID-19 VACCINE [facility] (1) [code = COVID-19 VACCINE (1)] Future Scheduled Test Hepatitis C Method [facility] screening (procedure) [code = 577175372] Future Scheduled Test INFLUENZA VACCINE [facility] [code = INFLUENZA VACCINE] Encounters Start End Encounter Admission Attending Care Care Encounter Source Date/Time Date/Time Type Type Clinicians Facility Department ID 2022-09-20 Outpatient [facility] [id number] [facility] 09:01:19 [id number] [facility] 2022-09-18 Outpatient [facility] [id number] [facility] 13:05:14 [id number] [facility] 2022-09-04 Outpatient [facility] [id number] [facility] 09:48:26 [id number] [facility] 2022-09-03 Outpatient [facility] [id number] [facility] 10:22:47 [id number] [facility] 2022-08-15 Outpatient [facility] [id number] [facility] 08:54:00 [id number] [facility] 2022-07-30 Outpatient [facility] [id number] [place] 09:03:26 [id number] [facility] 2022-07-27 Outpatient [facility] [facility] [id number] [place] 09:39:00 [id number] [facility] 2022-06-22 Outpatient Vazquez, STLMLC STLMLC [id number] Common 11:03:01 [facility] 2022-06-20 Outpatient [facility] [id number] [place] 15:53:00 [id number] [facility] 2022-06-20 Outpatient Vazquez, STLMLC STLMLC [id number] Common 09:33:01 [facility] 2022-06-19 Outpatient [facility] [id number] [place] 15:00:31 [id number] [facility] 2022-06-12 Outpatient [facility] [id number] [place] 09:35:34 [id number] [facility] 2022-05-25 Outpatient [facility] [id number] [place] 13:39:31 [id number] [facility] 2021-10-25 Outpatient MIGUEL ANGEL, [facility] ANAY 7506 [facility] 11:23:00 ARTESIA 2021-09-28 Outpatient DAY, NOAH [facility] [id number] [place] 16:10:44 [facility] 2021-09-06 Outpatient Vazquez, STLMLC STLMLC [id number] Common 12:12:10 John 48599 [facility] 2021-09-06 Outpatient Vazquez, STLMLC STLMLC [id number] Common 12:10:54 John 34207 [facility] 2021-09-06 Outpatient Vazquez, STLMLC STLMLC [id number] Common 12:09:52 John 69280 [facility] 2021-09-06 Outpatient Vazquez, STLMLC STLMLC [id number] Common 11:54:05 John 30152 [facility] 2021-09-06 Outpatient Vazquez, STLMLC STLC [id number] Common 11:06:57 [facility] 63635 [facility] 2021-09-06 Outpatient Vazquez, STLMLC STLC [id number] Common 11:06:47 [facility] 58321 [facility] 2021-04-18 Outpatient PATKI, [facility] [id number] [place] 14:45:53 [facility] 2022-09-26 2022-09-26 Outpatient YUKSEL, [facility] [id number] [place] 13:15:00 13:15:00 [facility] 2022-09-20 2022-09-20 Outpatient YUKSEL, [facility] [id number] [place] 08:45:00 08:45:00 [facility] 2022-08-16 2022-08-16 Outpatient TUCKER, [facility] [id number] [place] 14:30:00 14:30:00 [facility] 2022-08-01 2022-08-01 Outpatient TUCKER, [facility] [id number] [place] 11:00:00 11:00:00 [facility] 2022-07-27 2022-07-27 Office Yuharmeet, UTP 6400 1.2.840.114 [id number] [place] 08:30:00 09:48:28 Visit Manasa KING [id number] [facility] 9.2.7.2.686 [id number] 5 2022-07-25 2022-07-25 [facility]EL[facility] [id number] Co mmon 00:00:00 00:00:00 [facility] 2022-06-22 2022-06-22 (TEL) STLC STLC [id number] Co mmon 00:00:00 00:00:00 [facility] 2022-06-22 2022-06-22 OFFICE STLC STLC [id number] Co mmon 00:00:00 00:00:00 VISIT [facility] LEVEL 4 [facility] 2022-06-20 2022-06-20 Outpatient DAY, NOAH [facility] [id number] [place] 14:00:00 14:00:00 Health 2022-06-13 2022-06-13 Outpatient DAY, NOAH [facility] [id number] [place] 13:15:00 13:15:00 Health 2022-06-06 2022-06-06 (TEL) [facility] [id number] Co mmon 00:00:00 00:00:00 [facility] 2022-06-06 2022-06-06 [facility]EL) [facility] [id number] Co mmon 00:00:00 00:00:00 [facility] 2022-05-17 2022-05-19 Outpatient E DAY, NOAH [facility] 750 [id number] [facility] 10:13:00 11:40:00 2022-05-16 2022-05-16 Office DAY, NOAH UTP 6400 1.2.840.114 1 [id number] [place] 15:45:00 15:45:[address] 350.1.13.58 Health 9.2.7.2.686 [id number] 0 2022-05-12 2022-05-12 Emergency E ROBERTS, [facility] 2274 [facility] 03:16:00 21:21:00 SONIA 2022-03-21 2022-03-21 Outpatient DAY, NOAH [facility] [id number] [place] 15:00:00 15:00:00 Health 2022-03-14 2022-03-14 Telephone Day, Noah EUNICE 6400 1.2.840.114 [id number] [place] 00:00:00 00:00:[address] [place] [address] 350.1.13.58 Health 9.2.7.2.686 [id number] 0 2022-03-14 2022-03-14 Telephone PatEUNICE phillip 6400 1.2.840.114 [id number] [place] 00:00:00 00:00:[address] 350.1.13.58 Health 9.2.7.2.686 [id number] 3 2022-03-14 2022-03-14 Telephone Day, Noah DAWSON 6400 1.2.840.114 [id number] [place] 00:00:00 00:00:[address] [place] [address] 350.1.13.58 Health 9.2.7.2.686 [id number] 0 2022-03-13 2022-03-13 Telephone Day, Noah DAWSON 6400 1.2.840.114 [id number] [place] 00:00:00 00:00:[address] [place] [address] 350.1.13.58 Health 9.2.7.2.686 [id number] 0 2022-01-01 2022-01-01 Telephone Day, Noah DAWSON 6400 1.2.840.114 [id number] [place] 00:00:00 00:00:[address] 350.1.13.58 Health 9.2.7.2.686 [id number] 0 2021-12-28 2021-12-28 Telephone Day, Noah DAWSON 6400 1.2.840.114 [id number] [place] 00:00:00 00:00:[address] [place] [address] 350.1.13.58 Health 9.2.7.2.686 [id number] 0 2021-12-06 2021-12-06 Telephone Day, Noah DAWSON 6400 1.2.840.114 [id number] [place] 00:00:00 00:00:[address] 350.1.13.58 Health 9.2.7.2.686 [id number] 0 2021-11-27 2021-11-27 Telephone Day, Noah DAWSON 6400 1.2.840.114 [id number] [place] 00:00:00 00:00:[address] 350.1.13.58 Health 9.2.7.2.686 [id number] 0 2021-11-01 2021-11-01 Telephone Day, Noah DAWSON 6400 1.2.840.114 [id number] [place] 00:00:00 00:00:[address] 350.1.13.58 Health 9.2.7.2.686 [id number] 0 2021-10-30 2021-10-30 Telephone Rae Naranjo UTP 1.2.840 .114 [id number] [place] 00:00:00 00:00:00 Rae Naranjo 350.1.13.58 Health MEDICAL 9.2.7.2.686 BUILDING [id number] 1 2021-10-27 2021-10-27 Telephone Day, Noah UTP 6410 1.2.840.114 [id number] [place] 00:00:00 00:00:[address] [place] [address] 350.1.13.58 Health 9.2.7.2.686 [id number] 8 2021-10-25 2021-10-26 Outpt Diag nullFlavo [facility] 89260 [id number] [facility] 18:11:00 04:59:00 Services r Outpatient 01 l Imaging [facility] 2021-10-24 2021-10-24 Telephone Layne Sánchez UTP 6400 1.2.840.1 14 [id number] [place] 00:00:00 00:00:[address]N ST 350.1.13.58 Health 9.2.7.2.686 [id number] 3 2021-10-24 2021-10-24 Telephone Day, Noah UTP 6400 1.2.840.114 [id number] [place] 00:00:00 00:00:[address] 350.1.13.58 Health 9.2.7.2.686 [id number] 0 2021-10-20 2021-10-20 Office Miguel Angel EUNICE 1.2.840.114 [id number] [place] 13:30:00 14:18:52 Visit Geronimo MENCHACA 350.1.13.58 H [facility] MEDICAL 9.2.7.2.686 BUILDING [id number] 1 2021-10-18 2021-10-19 Outpt Diag nullFlavo [facility] [id number] [facility] 17:43:00 05:59:00 Services r Outpatient 00 l Imaging Davidson Lyons 2021-10-18 2021-10-18 Office Day, Noah UTP 6400 1.2.840.114 1 [id number] [place] 10:00:00 10:15:00 [place] [address] 350.1.13.58 Health 9.2.7.2.686 [id number] 0 2021-10-18 2021-10-18 Telephone Day, Noah UTP 6400 1.2.840.114 [id number] [place] 00:00:00 00:00:[address] 350.1.13.58 Health 9.2.7.2.686 [id number] 0 2021-10-18 2021-10-18 Telephone Day, Noah UTP 6400 1.2.840.114 [id number] [place] 00:00:00 00:00:[address] 350.1.13.58 Health 9.2.7.2.686 [id number] 0 2021-10-17 2021-10-17 Telephone Day, Noah UTP 6400 1.2.840.114 [id number] [place] 00:00:00 00:00:[address] 350.1.13.58 Health 9.2.7.2.686 [id number] 0 2021-10-13 2021-10-13 Telephone Day, Noah UTP 6400 1.2.840.114 [id number] [place] 00:00:00 00:00:[address] [place] [address] 350.1.13.58 Health 9.2.7.2.686 [id number] 0 2021-10-08 2021-10-[address] [facility] [id number] Memoria 23:43:00 15:48:[address] 2021-10-08 2021-10-10 Inpatient E DAY, NOAH [facility] 2057 [facility] 19:58:00 09:48:00 2021-10-03 2021-10-[address] [facility] [id number] Memoria 11:15:00 16:21:[address] 2021-10-03 2021-10-05 Inpatient DAY, NOAH [facility] 7505 [facility] 05:15:00 10:21:00 2021-10-04 2021-10-04 Telephone Day, Noah UTP 6400 1.2.840.114 [id number] [place] 00:00:00 00:00:[address] 350.1.13.58 Health 9.2.7.2.686 [id number] 0 2021-09-28 2021-09-28 Telephone Day, Noah UTP 6400 1.2.840.114 [id number] [place] 00:00:00 00:00:[address] 350.1.13.58 Health 9.2.7.2.686 [id number] 0 2021-09-28 2021-09-28 Telephone Dorothea Delgadillo UTP 6400 1.2.84 0.114 [id number] [place] 00:00:00 00:00:[address] 350.1.13.58 Health 9.2.7.2.686 [id number] 3 2021-09-22 2021-09-22 Telephone Day, Noah UTP 6400 1.2.840.114 [id number] [place] 00:00:00 00:00:[address] [place] [address] 350.1.13.58 Health 9.2.7.2.686 [id number] 0 2021-09-20 2021-09-20 Telephone Day, Noah UTP 6400 1.2.840.114 [id number] [place] 00:00:00 00:00:[address] 350.1.13.58 Health 9.2.7.2.686 [id number] 7 2021-09-18 2021-09-18 Telephone Amelia Cameron UTP 6400 1.2.840.11 4 [id number] UT 00:00:00 00:00:[address] 350.1.13.58 Health 9.2.7.2.686 [id number] 5 2021-09-07 2021-09-07 Office Evelynekenji UTP 6400 1.2.840.114 [id number] [place] 13:30:00 14:35:[address] 350.1.13.58 Health 9.2.7.2.686 [id number] 3 2021-09-07 2021-09-07 Telephone Patki, UTP 6400 1.2.840.114 [id number] [place] 00:00:00 00:00:[address] 350.1.13.58 Health 9.2.7.2.686 [id number] 3 2021-09-05 2021-09-05 Telephone Patki, UTP 6400 1.2.840.114 134 [id number] [place] 00:00:00 00:00:[address] 350.1.13.58 Health 9.2.7.2.686 [id number] 3 2021-09-03 2021-09-03 Telephone Patki, UTP 6400 1.2.840.114 [id number] [place] 00:00:00 00:00:[address] 350.1.13.58 Health 9.2.7.2.686 [id number] 3 2021-08-02 2021-08-02 Telephone Patki, UTP 6400 1.2.840.114 133 [id number] [place] 00:00:00 00:00:00 Junior JOYCE 350.1.13.58 Health 9.2.7.2.686 [id number] 3 2021-05-18 2021-05-18 Orders rBii Howard UTP 6400 1.2.840.114 [id number] UT 00:00:00 00:00:[address] 350.1.13.58 Health 9.2.7.2.686 [id number] 3 2021-05-18 2021-05-18 Orders Stacy, UTP 6400 1.2.840.114 [id number] [place] 00:00:00 00:00:[address] 350.1.13.58 Health 9.2.7.2.686 [id number] 3 2021-05-15 2021-05-15 Telephone Patki, UTP 6400 1.2.840.114 [id number] [place] 00:00:00 00:00:[address] 350.1.13.58 Health 9.2.7.2.686 [id number] 3 2021-05-11 2021-05-[address] [facility] [id number] [facility] 00:42:19 14:08:[address] 2021-05-11 2021-05-11 (TEL) STLMLC STLMLC [id number] Co mmon 00:00:00 00:00:00 [facility] 2021-05-09 2021-05-09 Telephone Patki, UTP 6400 1.2.840.114 [id number] [place] 00:00:00 00:00:[address] 350.1.13.58 Health 9.2.7.2.686 [id number] 3 2021-05-08 2021-05-08 Telephone Patki, UTP 6400 1.2.840.114 127 [id number] UT 00:00:00 00:00:[address] 350.1.13.58 Health 9.2.7.2.686 [id number] 3 2021-05-08 2021-05-08 Telephone Patki, UTP 6400 1.2.840.114 127 [id number] [place] 00:00:00 00:00:[address] 350.1.13.58 Health 9.2.7.2.686 [id number] 3 2021-05-08 2021-05-08 Telephone Patki, UTP 6400 1.2.840.114 127 [id number] [place] 00:00:00 00:00:[address] 350.1.13.58 Health 9.2.7.2.686 [id number] 3 2021-05-03 2021-05-03 Office Patki, UTP 6400 1.2.840.114 [id number] [place] 13:38:06 14:42:[address] 350.1.13.58 Health 9.2.7.2.686 [id number] 3 2021-05-03 2021-05-03 Office Stacy, EUNICE 6400 1.2.840.114 [id number] [place] 13:38:06 14:42:46 Visit Junior JOYCE 350.1.13.58 Health 9.2.7.2.686 [id number] 3 2021-04-18 2021-04-18 Office EUNICE Kumar 6400 1.2.840.114 [id number] [place] 13:09:45 14:44:18 Visit Junior JOYCE 350.1.13.58 Health 9.2.7.2.686 [id number] 3 2021-04-18 2021-04-18 Office EUNICE Kumar 6400 1.2.840.114 [id number] [place] 13:09:45 14:44:18 Visit Junior JOYCE 350.1.13.58 Health 9.2.7.2.686 [id number] 3 2021-04-06 2021-04-06 [facility] [id number] Co mmon 00:00:00 00:00:00 VISIT EST Spir it PT LEVEL 3 [facility] 2021-04-06 2021-04-06 (TEL) STLC STLC [id number] Co mmon 00:00:00 00:00:00 [facility] 2021-03-31 2021-03-31 (TEL) [facility] [id number] Co mmon 00:00:00 00:00:00 [facility] 2021-03-30 2021-03-30 Orders Doctor AICHA 1.2.840.114 [id number] Univers 00:00:00 00:00:00 Only Unassigned, ABDULKADIR 350.1.13.10 ity of [place] [facility] 4.2.7.2.686 Norberto as [id number] [address] 2021-03-30 2021-03-30 Orders Doctor AICHA Hernandez2.840.114 [id number] 00:00:00 00:00:00 Only Unassigned, ABDULKADIR 350.1.13.10 [place] [facility] 4.2.7.2.686 [id number] 2021-03-21 2021-03-21 Ancillary 1Cristopher [facility]ERS[facility] 1.2.840.114 [id number] 14:21:34 15:15:15 Visit Audio Sound Y 350.1.13.10 [facility] 4.2.7.2.686 [facility] [id number] BLDG. 141 2021-03-21 2021-03-21 Outpatient R RENZO, [facility] [id number] Univers 13:45:00 13:45:00 FABY [facility] 2021-01-17 2021-01-17 Emergency X BARBARA, [facility] ERT [id number] Univers 19:28:00 19:28:00 LAURENCE [facility] 2020-11-21 2020-11-21 Emergency X [facility] ERT [id number] Univers 15:51:00 15:51:00 [facility] 2020-07-20 2020-07-20 (TEL) STLMLC STLMLC [id number] Co mmon 00:00:00 00:00:00 [facility] 2020-07-12 2020-07-12 OFFICE STLMLC STLMLC [id number] Co mmon 00:00:00 00:00:00 VISIT EST Spir it PT LEVEL 3 - [facility] 2020-05-23 2020-05-23 OFFICE STLMLC STLMLC [id number] Co mmon 00:00:00 00:00:00 VISIT EST Spir it PT LEVEL 3 - [facility] 2020-02-24 2020-02-24 [facility] [id number] Common 14:42:00 14:42:00 t Notice [employer]iosk [address]ir [address] [facility] 2020-02-22 2020-02-22 [facility] [id number] Common 13:51:00 13:51:00 t [employer] [address] [facility] 2019-12-10 2019-12-10 [facility] [id number] Common 15:39:00 15:39:00 t [facility] [address] [facility] 2019-12-08 2019-12-08 [facility] [id number] Common 13:40:00 13:40:00 t [facility] [address] [facility] 2019-12-07 2019-12-07 [facility] [id number] Common 12:05:00 12:05:[address] [facility] [address] [facility] 2019-11-16 2019-11-16 [facility] [id number] Common 11:00:00 11:00:00 t Bone Bone [facility] Sp[facility] t [facility] 2019-10-21 2019-10-21 Emergency X Blaire PADRON [facility] ERT [id number] Univers 11:24:16 14:51:00 ity of [facility] 2019-09-29 2019-09-29 [facility] [id number] Common 09:21:00 09:21:00 t Bone Bone and Spiri t and Joint [facility] - [facility] 2019-09-21 2019-09-21 [facility] [id number] Common 14:00:00 14:00:00 t Bone Bone and Spiri t and Joint [facility] - [facility] 2019-03-13 2019-03-13 AppointEUNICE Serra [facility] [id number] [place] 09:00:00 09:00:00 t; Lesa [facility]OD[facility]IGUEZ [facility] M.[facility] 2018-10-02 2018-10-02 AppointEUNICE Ibrahim [facility] [id number] [place] 15:00:00 15:00:00 t; Asher JONES i, M.D. ans POURAN, M.D. 2018-09-25 2018-09-25 AppointEUNICE [facility] [id number] [place] 10:30:00 10:30:00 t; BRANT CEJA NP Health and Valery GUO NP [facility] 2018-09-22 2018-09-22 AppointEUNICE Ibrahim [facility] [id number] [place] 15:30:00 15:30:00 t; Asher JONES i, M.D. ans POURAN, M.D. 2018-08-22 2018-08-22 [facility] [id number] [place] 09:30:00 09:30:00 t; Lesa BRYANT Ph savannah Rios M.D. 2018-07-29 2018-07-29 [facility] [id number] [place] 14:30:00 14:30:00 t; Lesa BRYANT Ph savannah Rios M.D. 2018-07-25 2018-07-25 [facility]ics [id number] [place] 10:30:00 10:30:00 t; Lesa BRITT [facility] savannah Monk M.D. 2018-07-22 2018-07-22 [facility] [id number] [place] 11:15:00 11:15:00 t; Lesa BRYANT [facility] Physicsp MUNOZ, Orthopedics savannah BRYANT M.D. 2018-07-15 2018-07-15 [facility] [id number] [place] 10:30:00 10:30:00 t; Lesa BRYANT [facility] MUNOZ, Orthopedics savannah BRYANT M.D. 2018-07-09 2018-07-10 [facility] [id number] [facility] 18:05:00 00:00:00 Surgery r Lyons 03 l [place] Kelly nn 2018-07-09 2018-07-09 [facility] [id number] [place] 13:00:00 13:00:00 t; Lesa BRYANT Ph savannah Rios M.D. 2018-06-30 2018-06-30 [facility] [id number] [place] 10:15:00 10:15:00 t; Lesa BRYANT [facility] Physici TAMMY, Orthopedics savannah BRYANT M.D. 2018-06-24 2018-06-24 Outpatient nullFlavo [facility] 4547 [id number] Memoria 00:15:00 05:59:00 r Lyons 02 l [place] Kelly nn 2018-06-20 2018-06-20 [facility] [id number] [place] 13:40:00 13:40:00 t; SHANE MONROE [place] [facility] GONZALEZ, Orthopedics a ns SHANE MONROE 2018-06-19 2018-06-19 Appointmen [facility] [id number] [place] 08:15:00 08:15:00 t; SERJIO HUERTA D.O. Physici KERRY, ans D.Judson 2018-06-17 2018-06-17 [facility] [id number] [place] 15:45:00 15:45:00 t; Lesa BRYANT [facility] Valery MUNOZ, Orthopedics savannah BRYANT M.D. 2018-06-03 2018-06-03 [facility] [id number] [place] 13:45:00 13:45:00 t; SERJIO HUERTA D.O. [facility] savannah Vora.Judson 2018-05-16 2018-05-16 [facility] [id number] Memoria 10:52:00 13:34:00 r Davidson 01 l [place] Kelly Results Test Description Test Time Test Comments Results Result Comments Source CHEM PANEL 2021-10-09 21:33:00 Test Item Value Reference Range Interpretation Comme nts Glucose Lvl (test code = Glucose Lvl) 114 70-99 [facility] [place] [id number] 21:33:00 Test Item Value Reference Range Interpretation Comments BUN (test code = BUN) 14 7-22 [facility] [employer] [id number] 21:33:00 Test Item Value Reference Range Interpretation Comments Creatinine Lvl (test code = Creatinine 1.36 0.50-1.40 Lvl) [facility] [place] [id number] 21:33:00 Test Item Value Reference Range Interpretation Comments Sodium Lvl (test code = Sodium Lvl) 139 135-145 [facility] [place] [id number] 21:33:00 Test Item Value Reference Range Interpretation Comments Potassium Lvl (test code = Potassium 4.6 3.5-5.1 Lvl) [place] [id number] 21:33:00 Test Item Value Reference Range Interpretation Comments Chloride Lvl (test code = Chloride Lvl) 104 95-109 [place] [id number] 21:33:00 Test Item Value Reference Range Interpretation Comments CO2 (test code = CO2) 29 24-32 [place] [id number] 21:33:00 Test Item Value Reference Range Interpretation Comments Calcium Lvl (test code = Calcium Lvl) 9.3 8.5-10.5 [place] [id number] 21:33:00 Test Item Value Reference Range Interpretation Comments AGAP (test code = AGAP) 10.6 10.0-20.0 [place] [id number] 21:33:00 Test Item Value Reference Range Interpretation Comments eGFR (test code = eGFR) 64 [place] 113512-02-28 21:33:00 Test Item Value Reference Range Interpretation Comments WBC (test code = WBC) 5.9 3.7-10.4 [place] 113512-02-28 21:33:00 Test Item Value Reference Range Interpretation Comments RBC (test code = RBC) 4.85 4.70-6.10 [place] 113512-02-28 21:33:00 Test Item Value Reference Range Interpretation Comments Hgb (test code = Hgb) 13.7 14.0-18.0 [place] 113512-02-28 21:33:00 Test Item Value Reference Range Interpretation Comments Hct (test code = Hct) 41.5 42.0-54.0 [place] [address]-02-28 21:33:00 Test Item Value Reference Range Interpretation Comments MCV (test code = MCV) 85.4 80.0-94.0 [place] 113512-02-28 21:33:00 Test Item Value Reference Range Interpretation Comments MCH (test code = MCH) 28.2 pg 27.0-31.0 [place] 113512-02-28 21:33:00 Test Item Value Reference Range Interpretation Comments MCHC (test code = MCHC) 33.0 32.0-36.0 [address]02-28 21:33:00 Test Item Value Reference Range Interpretation Comments RDW (test code = RDW) 14.0 11.5-14.5 [place] [address]-02-28 21:33:00 Test Item Value Reference Range Interpretation Comments Platelet (test code = Platelet) 186 133-450 [place] [address]-02-28 21:33:00 Test Item Value Reference Range Interpretation Comments MPV (test code = MPV) 9.1 7.4-10.4 [place] [address]-02-28 21:33:00 Test Item Value Reference Range Interpretation Comments PT (test code = PT) 12.4 s 12.0-14.[address]02-28 21:33:00 Test Item Value Reference Range Interpretation Comments INR (test code = INR) 0.93 1 0.85-1.[address]02-28 21:33:00 Test Item Value Reference Range Interpretation Comments PTT (test code = PTT) 27.8 s 22.9-35.8 [place] [address]-02-28 21:33:00 Test Item Value Reference Range Interpretation Comments Segs (test code = Segs) 73.9 45.0-75.0 [address]02-28 21:33:00 Test Item Value Reference Range Interpretation Comments Lymphocytes (test code = Lymphocytes) 18.2 20.0-40.0 [place] [address]-02-28 21:33:00 Test Item Value Reference Range Interpretation Comments Monocytes (test code = Monocytes) 3.4 2.0-12.0 [place] [address]-02-28 21:33:00 Test Item Value Reference Range Interpretation Comments Eosinophils (test code = 4.2 See_Comment [A utomated message] The Eosinophils) system which ge nerated this result tra nsmitted reference range : <=4.0. The reference r caleb was not used to int erpret this result as normal/abnormal . [place] [address]-02-28 21:33:00 Test Item Value Reference Range Interpretation Comments Basophils (test code = 0.3 See_Comment [Aut omated message] The Basophils) system which ge nerated this result tra nsmitted reference range : <=1.0. The reference r caleb was not used to int erpret this result as normal/abnormal . [place] 113512-02-28 21:33:00 Test Item Value Reference Range Interpretation Comments Neutrophils # (test code = Neutrophils 4.4 1.5-8.1 #) [place] 113512-02-28 21:33:00 Test Item Value Reference Range Interpretation Comments Lymphocytes # (test code = Lymphocytes 1.1 1.0-5.5 #) [place] [address]-02-28 21:33:00 Test Item Value Reference Range Interpretation Comments Monocytes # (test code 0.2 See_Comment [Aut omated message] The = Monocytes #) system which generated this result tra nsmitted reference range : <=0.8. The reference r caleb was not used to int erpret this result as normal/abnormal . [place] [address]-02-28 21:33:00 Test Item Value Reference Range Interpretation Comments Eosinophils # (test code 0.2 See_Comment [A utomated message] The = Eosinophils #) system whic h generated this result tra nsmitted reference range : <=0.5. The reference r caleb was not used to int erpret this result as normal/abnormal . [facility]2022-02-28 20:31:00 Test Item Value Reference Range Interpretation Comments Glucose CSF (test code = Glucose CSF) 77 45-80 [place] 472512-02-28 20:31:00 Test Item Value Reference Range Interpretation Comments Protein CSF (test code = Protein CSF) 33 15-45 [place] 472512-02-28 20:31:00 Test Item Value Reference Range Interpretation Comments Tube Num CSF (test xxxxxxx (10/09/21 2:31 code = Tube Num CSF) PM) [place] 472512-02-28 20:31:00 Test Item Value Reference Range Interpretation Comments Color CSF (test code Colorless (10/09/21 2:31 = Color CSF) PM) [place] 472512-02-28 20:31:00 Test Item Value Reference Range Interpretation Comments Clarity CSF (test code = Clear (10/09/21 2:31 Clarity CSF) PM) [place] [address]-02-28 20:31:00 Test Item Value Reference Range Interpretation Comments Supernat CSF (test Colorless (10/09/21 2:31 code = Supernat CSF) PM) [id number] 20:31:00 Test Item Value Reference Range Interpretation Comments Nucleated Cells CSF 9 See_Comment [Automa leydi message] The (test code = Nucleated syste m which generated Cells CSF) this result tra nsmitted reference range : <=53. The reference r caleb was not used to int erpret this result as normal/abnormal . [facility] H[id number] 20:31:00 Test Item Value Reference Range Interpretation Comments RBC CSF (test code = 280 See_Comment [Autom ated message] The RBC CSF) system which ge nerated this result transmit leydi reference range : <=03. The reference range was not used to interpr et this result as krishna l/abnormal. [facility] Ho[id number] 20:31:00 Test Item Value Reference Range Interpretation Comments Neutrophils CSF (test 64 See_Comment [Auto mated message] The code = Neutrophils CSF) syst em which generated this result tra nsmitted reference range : <=6. The reference r caleb was not used to int erpret this result as normal/abnormal . [facility] HospitalSemanticator [id number] 20:31:00 Test Item Value Reference Range Interpretation Comments Lymph CSF (test code = Lymph CSF) 30 40-80 [facility] HospitalSemanticator [id number] 20:31:00 Test Item Value Reference Range Interpretation Comments Monocyte CSF (test code = Monocyte CSF) 6 15-45 [facility] HospitalCulture: [id number] 20:31:00 Test Item Value Reference Range Interpretation Comments Culture: Anaerobic No Anaerobes Isolated (test code = Culture: After 3 Days Anaerobic) [facility] HospitalGram Stain [id number] 20:31:00 Test Item Value Reference Range Interpretation Comments Gram Stain Report Few Wbc'S; No Organisms (test code = Gram Seen Stain Report) [facility] HospitalCulture: CSF w/Gram [id number] 20:31:00 Test Item Value Reference Range Interpretation Comments Culture: CSF w/Gram 72 Hour Report - No Stain (test code = Growth, Holding Culture: CSF w/Gram Stain) [facility] HospitalCHEM [id number] 08:57:00 Test Item Value Reference Range Interpretation Comments Glucose Lvl (test code = Glucose Lvl) 109 70-99 [place] 866402-02-28 08:57:00 Test Item Value Reference Range Interpretation Comments BUN (test code = BUN) 17 7-22 [place] 866402-02-28 08:57:00 Test Item Value Reference Range Interpretation Comments Creatinine Lvl (test code = Creatinine 1.28 0.50-1.40 Lvl) [place] 866402-02-28 08:57:00 Test Item Value Reference Range Interpretation Comments Sodium Lvl (test code = Sodium Lvl) 140 135-145 [place] 866402-02-28 08:57:00 Test Item Value Reference Range Interpretation Comments Potassium Lvl (test code = Potassium 3.9 3.5-5.1 Lvl) [place] 866402-02-28 08:57:00 Test Item Value Reference Range Interpretation Comments Chloride Lvl (test code = Chloride Lvl) 108 95-109 [place] 866402-02-28 08:57:00 Test Item Value Reference Range Interpretation Comments CO2 (test code = CO2) 27 24-32 [place] 866402-02-28 08:57:00 Test Item Value Reference Range Interpretation Comments Calcium Lvl (test code = Calcium Lvl) 9.5 8.5-10.5 [place] 866402-02-28 08:57:00 Test Item Value Reference Range Interpretation Comments AGAP (test code = AGAP) 8.9 10.0-20.0 [place] 866402-02-28 08:57:00 Test Item Value Reference Range Interpretation Comments eGFR (test code = eGFR) 69 [place] 113512-02-28 08:57:00 Test Item Value Reference Range Interpretation Comments WBC (test code = WBC) 8.5 3.7-10.4 [place] [address]-02-28 08:57:00 Test Item Value Reference Range Interpretation Comments RBC (test code = RBC) 4.69 4.70-6.10 [place] [address]-02-28 08:57:00 Test Item Value Reference Range Interpretation Comments Hgb (test code = Hgb) 13.3 14.0-18.0 [place] 113512-02-28 08:57:00 Test Item Value Reference Range Interpretation Comments Hct (test code = Hct) 40.4 42.0-54.0 [place] 113512-02-28 08:57:00 Test Item Value Reference Range Interpretation Comments MCV (test code = MCV) 86.1 80.0-94.0 [place] 113512-02-28 08:57:00 Test Item Value Reference Range Interpretation Comments MCH (test code = MCH) 28.3 pg 27.0-31.0 [place] 113512-02-28 08:57:00 Test Item Value Reference Range Interpretation Comments MCHC (test code = MCHC) 32.9 32.0-36.0 [place] 113512-02-28 08:57:00 Test Item Value Reference Range Interpretation Comments RDW (test code = RDW) 14.1 11.5-14.5 [place] 113512-02-28 08:57:00 Test Item Value Reference Range Interpretation Comments Platelet (test code = Platelet) 192 133-450 [facility] CenterPolrahmDMQOVTDNOU8209-17-29 08:57:00 Test Item Value Reference Range Interpretation Comments MPV (test code = MPV) 9.2 7.4-10.4 [place] 113512-02-28 08:57:00 Test Item Value Reference Range Interpretation Comments R-time (test code = R-time) 6.0 min 5.0-10.0 [place] 113512-02-28 08:57:00 Test Item Value Reference Range Interpretation Comments K-time (test code = K-time) 1.4 min 1.0-3.0 [place] 113512-02-28 08:57:00 Test Item Value Reference Range Interpretation Comments Angle (test code = Angle) 69.7 degrees 53.0-72.0 [place] 113512-02-28 08:57:00 Test Item Value Reference Range Interpretation Comments Max Amp (test code = Max Amp) 66.3 mm 50.0-70.0 [place] 113512-02-28 08:57:00 Test Item Value Reference Range Interpretation Comments G-value (test code = G-value) 9.8 4.5-11.0 [place] 113512-02-28 08:57:00 Test Item Value Reference Range Interpretation Comments Ly30 (test code = 0.6 See_Comment [Automate d message] The Ly30) system which ge nerated this result transmit leydi reference range : <=7.5. The reference range was not used to interpr et this result as krishna l/abnormal. [place] [address]-02-28 08:57:00 Test Item Value Reference Range Interpretation Comments Coag Index (test code 1.2 1 See_Comment [Auto mated message] The = Coag Index) system which g enerated this result transmit leydi reference range : <=3.0. The reference range was not used to interpr et this result as krishna l/abnormal. [place] 113512-02-28 08:57:00 Test Item Value Reference Range Interpretation Comments TEG Data (test code = See Note (10/09/21 2:57 TEG Data) AM) [address]02-28 08:57:00 Test Item Value Reference Range Interpretation Comments PT (test code = PT) 12.1 s 12.0-14.7 [place] [address]-02-28 08:57:00 Test Item Value Reference Range Interpretation Comments INR (test code = INR) 0.90 1 0.85-1.17 [place] [address]-02-28 08:57:00 Test Item Value Reference Range Interpretation Comments PTT (test code = PTT) 27.6 s 22.9-35.8 [place] [address]-02-28 08:57:00 Test Item Value Reference Range Interpretation Comments Segs (test code = Segs) 52.0 45.0-75.0 [place] [address]-02-28 08:57:00 Test Item Value Reference Range Interpretation Comments Lymphocytes (test code = Lymphocytes) 33.8 20.0-40.0 [place] [address]-02-28 08:57:00 Test Item Value Reference Range Interpretation Comments Monocytes (test code = Monocytes) 8.0 2.0-12.0 [place] [address]-02-28 08:57:00 Test Item Value Reference Range Interpretation Comments Eosinophils (test code = 5.8 See_Comment [A utomated message] The Eosinophils) system which ge nerated this result tra nsmitted reference range : <=4.0. The reference r caleb was not used to int erpret this result as normal/abnormal . [place] 113512-02-28 08:57:00 Test Item Value Reference Range Interpretation Comments Basophils (test code = 0.4 See_Comment [Aut omated message] The Basophils) system which ge nerated this result tra nsmitted reference range : <=1.0. The reference r caleb was not used to int erpret this result as normal/abnormal . [place] 113512-02-28 08:57:00 Test Item Value Reference Range Interpretation Comments Neutrophils # (test code = Neutrophils 4.4 1.5-8.1 #) [address]02-28 08:57:00 Test Item Value Reference Range Interpretation Comments Lymphocytes # (test code = Lymphocytes 2.9 1.0-5.5 #) [address]02-28 08:57:00 Test Item Value Reference Range Interpretation Comments Monocytes # (test code 0.7 See_Comment [Aut omated message] The = Monocytes #) system which generated this result tra nsmitted reference range : <=0.8. The reference r caleb was not used to int erpret this result as normal/abnormal . [place] 113512-02-28 08:57:00 Test Item Value Reference Range Interpretation Comments Eosinophils # (test code 0.5 See_Comment [A utomated message] The = Eosinophils #) system whic h generated this result tra nsmitted reference range : <=0.5. The reference r caleb was not used to int erpret this result as normal/abnormal . [place] 113512-02-28 08:57:00 Test Item Value Reference Range Interpretation Comments TEG Interp (test Thrombelastograph results code = TEG are within reference ranges. Interp) Note that TEG does not show effect of NSAIDs or P2Y12 inhibitors. CPT:[id number] [place] 866402-02-28 02:07:26 Test Item Value Reference Range Interpretation Comments Glucose Lvl (test code = Glucose Lvl) 95 70-99 [place] 866402-02-28 02:07:26 Test Item Value Reference Range Interpretation Comments BUN (test code = BUN) 13 7-22 [place] 866402-02-28 02:07:26 Test Item Value Reference Range Interpretation Comments Creatinine Lvl (test code = Creatinine 1.24 0.50-1.40 Lvl) [place] 866402-02-28 02:07:26 Test Item Value Reference Range Interpretation Comments Sodium Lvl (test code = Sodium Lvl) 140 135-145 [place] 866402-02-28 02:07:26 Test Item Value Reference Range Interpretation Comments Potassium Lvl (test code = Potassium 3.7 3.5-5.1 Lvl) [place] 866402-02-28 02:07:26 Test Item Value Reference Range Interpretation Comments Chloride Lvl (test code = Chloride Lvl) 106 95-109 [place] 866402-02-28 02:07:26 Test Item Value Reference Range Interpretation Comments CO2 (test code = CO2) 30 24-32 [place] 866402-02-28 02:07:26 Test Item Value Reference Range Interpretation Comments Calcium Lvl (test code = Calcium Lvl) 9.5 8.5-10.5 [place] 866402-02-28 02:07:26 Test Item Value Reference Range Interpretation Comments AGAP (test code = AGAP) 7.7 10.0-20.0 [place] 866402-02-28 02:07:26 Test Item Value Reference Range Interpretation Comments eGFR (test code = eGFR) 72 [place] 113512-02-28 02:07:26 Test Item Value Reference Range Interpretation Comments WBC X 10x3 (test code = WBC X 10x3) 7.4 3.7-10.4 [place] 113512-02-28 02:07:26 Test Item Value Reference Range Interpretation Comments RBC X 10x6 (test code = RBC X 10x6) 5.06 4.70-6.10 [place] [address]-02-28 02:07:26 Test Item Value Reference Range Interpretation Comments Hgb (test code = Hgb) 14.0 14.0-18.0 [place] [address]-02-28 02:07:26 Test Item Value Reference Range Interpretation Comments Hct (test code = Hct) 43.5 42.0-54.0 [place] 113512-02-28 02:07:26 Test Item Value Reference Range Interpretation Comments MCV (test code = MCV) 85.9 80.0-94.0 [place] 113512-02-28 02:07:26 Test Item Value Reference Range Interpretation Comments MCH (test code = MCH) 27.7 pg 27.0-31.0 [place] 113512-02-28 02:07:26 Test Item Value Reference Range Interpretation Comments MCHC (test code = MCHC) 32.3 32.0-36.0 [place] 113512-02-28 02:07:26 Test Item Value Reference Range Interpretation Comments RDW (test code = RDW) 13.9 11.5-14.5 [place] 113512-02-28 02:07:26 Test Item Value Reference Range Interpretation Comments Platelet (test code = Platelet) 192 133-450 [place] 113512-02-28 02:07:26 Test Item Value Reference Range Interpretation Comments MPV (test code = MPV) 9.1 7.4-10.4 [place] 113512-02-28 02:07:26 Test Item Value Reference Range Interpretation Comments ACT (TEG) Rapid (test code = ACT (TEG) 128 s 86-118 Rapid) [place] 113512-02-28 02:07:26 Test Item Value Reference Range Interpretation Comments Split Point Rapid (test code = Split 0.7 min Point Rapid) [place] 113512-02-28 02:07:26 Test Item Value Reference Range Interpretation Comments R-time Rapid (test code = R-time 0.8 min 0.4-0.7 Rapid) [place] 113512-02-28 02:07:26 Test Item Value Reference Range Interpretation Comments K-time Rapid (test code = K-time 1.1 min 0.6-2.3 Rapid) [place] [address]-02-28 02:07:26 Test Item Value Reference Range Interpretation Comments Angle Rapid (test code = Angle 76 degrees 64-80 Rapid) [place] 113512-02-28 02:07:26 Test Item Value Reference Range Interpretation Comments Max Amplitude Rapid (test code = Max 71 mm 52-71 Amplitude Rapid) [place] 113512-02-28 02:07:26 Test Item Value Reference Range Interpretation Comments G-value Rapid (test code = G-value 12.1 5.0-11.6 Rapid) [place] 113512-02-28 02:07:26 Test Item Value Reference Range Interpretation Comments Estimated % Lysis Rapid 0.8 See_Comment [Au tomated message] The (test code = Estimated syste m which generated % Lysis Rapid) this result t ransmitted reference range : <=7.5. The reference r caleb was not used to int erpret this result as normal/abnormal . [place] 113512-02-28 02:07:26 Test Item Value Reference Range Interpretation Comments PT (test code = PT) 12.5 s 12.0-14.7 [place] 113512-02-28 02:07:26 Test Item Value Reference Range Interpretation Comments INR (test code = INR) 0.94 1 0.85-1.17 [place] [address]-02-28 02:07:26 Test Item Value Reference Range Interpretation Comments PTT (test code = PTT) 29.6 s 22.9-35.8 [place] 113512-02-28 02:07:26 Test Item Value Reference Range Interpretation Comments Segs (test code = Segs) 57.2 45.0-75.0 [place] 113512-02-28 02:07:26 Test Item Value Reference Range Interpretation Comments Lymphocytes (test code = Lymphocytes) 30.9 20.0-40.0 [place] 113512-02-28 02:07:26 Test Item Value Reference Range Interpretation Comments Monocytes (test code = Monocytes) 5.6 2.0-12.0 [place] [address]-02-28 02:07:26 Test Item Value Reference Range Interpretation Comments Eosinophils (test code = 5.6 See_Comment [A utomated message] The Eosinophils) system which ge nerated this result tra nsmitted reference range : <=4.0. The reference r caleb was not used to int erpret this result as normal/abnormal . [place] 113512-02-28 02:07:26 Test Item Value Reference Range Interpretation Comments Basophils (test code = 0.7 See_Comment [Aut omated message] The Basophils) system which ge nerated this result tra nsmitted reference range : <=1.0. The reference r caleb was not used to int erpret this result as normal/abnormal . [facility] HospitalRcnjequTXYGJQVJKN8565-04-74 02:07:26 Test Item Value Reference Range Interpretation Comments Neutrophils # (test code = Neutrophils 4.3 1.5-8.1 #) [facility] CenterNclsivpXNUEWNUXJB4915-93-84 02:07:26 Test Item Value Reference Range Interpretation Comments Lymphocytes # (test code = Lymphocytes 2.3 1.0-5.5 #) [facility] CenterOzwcvklLOGAPCSPGH9672-61-89 02:07:26 Test Item Value Reference Range Interpretation Comments Monocytes # (test code 0.4 See_Comment [Aut omated message] The = Monocytes #) system which generated this result tra nsmitted reference range : <=0.8. The reference r caleb was not used to int erpret this result as normal/abnormal . [facility] CenterLbjflpaZYJBOVJYSG9241-18-19 02:07:26 Test Item Value Reference Range Interpretation Comments Eosinophils # (test code 0.4 See_Comment [A utomated message] The = Eosinophils #) system whic h generated this result tra nsmitted reference range : <=0.5. The reference r caleb was not used to int erpret this result as normal/abnormal . [facility] HospitalZntgfseNABCEACYZK2970-92-72 02:07:26 Test Item Value Reference Range Interpretation Comments Coronavirus (COVID-19) Not Detected (10/08/21 LIZBETH (test code = 8:07 PM) Coronavirus (COVID-19) LIZBETH) [facility] [id number] 01:55:00 Test Item Value Reference Range Interpretation Comments ABO/Rh (test code = ABO/Rh) O POS [facility] [email or web address] [id number] 01:55:00 Test Item Value Reference Range Interpretation Comments Antibody Scrn (test Negative (10/08/21 7:55 code = Antibody Scrn) PM) [facility] [email or web address] 19:46:00 Test Item Value Reference Range Interpretation Comments Glucose Lvl (test code = Glucose Lvl) 133 70-99 [facility] DistrictA [place] [id number] 19:46:00 Test Item Value Reference Range Interpretation Comments BUN (test code = BUN) 14 7-22 [facility] [email or web address] 19:46:00 Test Item Value Reference Range Interpretation Comments Creatinine Lvl (test code = Creatinine 1.22 0.50-1.40 Lvl) [place] 866402-02-22 19:46:00 Test Item Value Reference Range Interpretation Comments Sodium Lvl (test code = Sodium Lvl) 138 135-145 [place] 866402-02-22 19:46:00 Test Item Value Reference Range Interpretation Comments Potassium Lvl (test code = Potassium 4.1 3.5-5.1 Lvl) [place] 866402-02-22 19:46:00 Test Item Value Reference Range Interpretation Comments Chloride Lvl (test code = Chloride Lvl) 108 95-109 [place] 866402-02-22 19:46:00 Test Item Value Reference Range Interpretation Comments CO2 (test code = CO2) 26 24-32 [place] 866402-02-22 19:46:00 Test Item Value Reference Range Interpretation Comments Calcium Lvl (test code = Calcium Lvl) 8.6 8.5-10.5 [place] 866402-02-22 19:46:00 Test Item Value Reference Range Interpretation Comments AGAP (test code = AGAP) 8.1 10.0-20.0 [place] 866402-02-22 19:46:00 Test Item Value Reference Range Interpretation Comments eGFR (test code = eGFR) 73 [place] 113512-02-22 19:46:00 Test Item Value Reference Range Interpretation Comments WBC (test code = WBC) 6.2 3.7-10.4 [place] [address]-02-22 19:46:00 Test Item Value Reference Range Interpretation Comments RBC (test code = RBC) 4.91 4.70-6.10 [place] [address]-02-22 19:46:00 Test Item Value Reference Range Interpretation Comments Hgb (test code = Hgb) 13.7 14.0-18.0 [place] [address]-02-22 19:46:00 Test Item Value Reference Range Interpretation Comments Hct (test code = Hct) 42.1 42.0-54.0 [place] [address]-02-22 19:46:00 Test Item Value Reference Range Interpretation Comments MCV (test code = MCV) 85.8 80.0-94.0 [place] 113512-02-22 19:46:00 Test Item Value Reference Range Interpretation Comments MCH (test code = MCH) 27.9 pg 27.0-31.0 [facility] CenterKhrihuxXAEFKBIBUZ6202-42-53 19:46:00 Test Item Value Reference Range Interpretation Comments MCHC (test code = MCHC) 32.6 32.0-36.0 [facility] CenterDeayjmtLCJCMCMCOT9567-87-42 19:46:00 Test Item Value Reference Range Interpretation Comments RDW (test code = RDW) 14.3 11.5-14.5 [facility] CenterHjyswtmBANEYFTPKS9632-66-28 19:46:00 Test Item Value Reference Range Interpretation Comments Platelet (test code = Platelet) 153 133-450 [facility] CenterLkbqocySNUFMMOLRI9156-42-35 19:46:00 Test Item Value Reference Range Interpretation Comments MPV (test code = MPV) 9.5 7.4-10.4 [place] 113512-02-22 19:46:00 Test Item Value Reference Range Interpretation Comments PT (test code = PT) 12.2 s 12.0-14.7 [facility] CenterAvgqhyxYKKVNLBYYK3205-27-83 19:46:00 Test Item Value Reference Range Interpretation Comments INR (test code = INR) 0.91 1 0.85-1.17 [facility] CenterPhsvlhaXKAPCQJSEX5323-33-27 19:46:00 Test Item Value Reference Range Interpretation Comments PTT (test code = PTT) 27.1 s 22.9-35.8 [place] 113512-02-22 19:46:00 Test Item Value Reference Range Interpretation Comments Plt Morph (test code = Normal (10/03/21 1:46 Plt Morph) PM) [facility] CenterNpmuzhxYRYFXYOITF6107-48-12 19:46:00 Test Item Value Reference Range Interpretation Comments Segs (test code = Segs) 83.7 45.0-75.0 [place] 113512-02-22 19:46:00 Test Item Value Reference Range Interpretation Comments Lymphocytes (test code = Lymphocytes) 12.3 20.0-40.0 [place] 113512-02-22 19:46:00 Test Item Value Reference Range Interpretation Comments Monocytes (test code = Monocytes) 1.6 2.0-12.0 [place] 113512-02-22 19:46:00 Test Item Value Reference Range Interpretation Comments Eosinophils (test code = 2.0 See_Comment [A utomated message] The Eosinophils) system which ge nerated this result tra nsmitted reference range : <=4.0. The reference r caleb was not used to int erpret this result as normal/abnormal . [facility] CenterTbziuzcKHMAOUKLRN3518-63-45 19:46:00 Test Item Value Reference Range Interpretation Comments Basophils (test code = 0.4 See_Comment [Aut omated message] The Basophils) system which ge nerated this result tra nsmitted reference range : <=1.0. The reference r caleb was not used to int erpret this result as normal/abnormal . [facility] CenterWkwzlprOJDOGDQKUZ1067-98-89 19:46:00 Test Item Value Reference Range Interpretation Comments Neutrophils # (test code = Neutrophils 5.2 1.5-8.1 #) [facility] CenterYnxofeyADSXMAPEPG5071-09-03 19:46:00 Test Item Value Reference Range Interpretation Comments Lymphocytes # (test code = Lymphocytes 0.8 1.0-5.5 #) [facility] CenterPyobegqSZFUCQCVHJ5642-16-87 19:46:00 Test Item Value Reference Range Interpretation Comments Monocytes # (test code 0.1 See_Comment [Aut omated message] The = Monocytes #) system which generated this result tra nsmitted reference range : <=0.8. The reference r caleb was not used to int erpret this result as normal/abnormal . [facility] CenterKxtdxbiFHLLSIPYCF0942-85-89 19:46:00 Test Item Value Reference Range Interpretation Comments Eosinophils # (test code 0.1 See_Comment [A utomated message] The = Eosinophils #) system whic h generated this result tra nsmitted reference range : <=0.5. The reference r caleb was not used to int erpret this result as normal/abnormal . [facility] [email or web address] [id number] 17:31:00 Test Item Value Reference Range Interpretation Comments ABO/Rh (test code = ABO/Rh) O POS [facility] [id number] 17:31:00 Test Item Value Reference Range Interpretation Comments Antibody Scrn (test Negative (10/02/21 code = Antibody Scrn) 11:31 AM) [facility] [id number] 17:31:00 Test Item Value Reference Range Interpretation Comments Glucose Lvl (test code = Glucose Lvl) 92 70-99 [place] 866402-02-21 17:31:00 Test Item Value Reference Range Interpretation Comments BUN (test code = BUN) 17 7- [place] 866402-02-21 17:31:00 Test Item Value Reference Range Interpretation Comments Creatinine Lvl (test code = Creatinine 1.21 0.50-1.40 Lvl) [place] 866402-02-21 17:31:00 Test Item Value Reference Range Interpretation Comments Sodium Lvl (test code = Sodium Lvl) 140 135-145 [place] 866402-02-21 17:31:00 Test Item Value Reference Range Interpretation Comments Potassium Lvl (test code = Potassium 4.2 3.5-5.1 Lvl) [place] 866402-02-21 17:31:00 Test Item Value Reference Range Interpretation Comments Chloride Lvl (test code = Chloride Lvl) 108 95-109 [place] 866402-02-21 17:31:00 Test Item Value Reference Range Interpretation Comments CO2 (test code = CO2) 26 24-32 [place] [id number] 17:31:00 Test Item Value Reference Range Interpretation Comments Calcium Lvl (test code = Calcium Lvl) 9.4 8.5-10.5 [place] [id number] 17:31:00 Test Item Value Reference Range Interpretation Comments AGAP (test code = AGAP) 10.2 10.0-20.0 [place] [id number] 17:31:00 Test Item Value Reference Range Interpretation Comments eGFR (test code = eGFR) 74 [place] 113512-02-21 17:31:00 Test Item Value Reference Range Interpretation Comments PTT (test code = PTT) 28.1 s 22.9-35.8 [place] [address]-02-21 17:31:00 Test Item Value Reference Range Interpretation Comments PT (test code = PT) 11.8 s 12.0-14.7 [place] [address]-02-21 17:31:00 Test Item Value Reference Range Interpretation Comments INR (test code = INR) 0.87 1 0.85-1.17 [place] [address]-02-21 17:31:00 Test Item Value Reference Range Interpretation Comments WBC (test code = WBC) 5.4 3.7-10.4 [facility] CenterTnvqppiSNZBDYFEAL4597-53-68 17:31:00 Test Item Value Reference Range Interpretation Comments RBC (test code = RBC) 4.90 4.70-6.10 [facility] CenterDltxmvtUPGERKCBJS4685-89-20 17:31:00 Test Item Value Reference Range Interpretation Comments Hgb (test code = Hgb) 13.7 14.0-18.0 [facility] CenterAvrpuawODBLZFHATA7017-68-37 17:31:00 Test Item Value Reference Range Interpretation Comments Hct (test code = Hct) 42.0 42.0-54.0 [facility] CenterWpnfyvyPKLYPMMHBG4386-39-16 17:31:00 Test Item Value Reference Range Interpretation Comments MCV (test code = MCV) 85.6 80.0-94.0 [facility] CenterKeznibdHONTOBPPCA5176-90-98 17:31:00 Test Item Value Reference Range Interpretation Comments MCH (test code = MCH) 27.9 pg 27.0-31.0 [facility] CenterHjgsoflPIEFBQYQFI9884-25-05 17:31:00 Test Item Value Reference Range Interpretation Comments MCHC (test code = MCHC) 32.6 32.0-36.0 [facility] CenterQwzziupTXDQTPLYXG8587-33-97 17:31:00 Test Item Value Reference Range Interpretation Comments RDW (test code = RDW) 14.1 11.5-14.5 [facility] CenterYlltulsCPEKMMCWAM8426-03-76 17:31:00 Test Item Value Reference Range Interpretation Comments Platelet (test code = Platelet) 173 133-450 [facility] CenterVmyekvhFUMQJAFEUA3674-01-04 17:31:00 Test Item Value Reference Range Interpretation Comments MPV (test code = MPV) 10.1 7.4-10.4 [facility] CenterScappunHEVDRDZCZT1122-88-71 17:31:00 Test Item Value Reference Range Interpretation Comments Segs (test code = Segs) 54.1 45.0-75.0 [facility] CenterKpfnyhaGDTPERYBKS3467-57-21 17:31:00 Test Item Value Reference Range Interpretation Comments Lymphocytes (test code = Lymphocytes) 30.9 20.0-40.0 [facility] CenterFcvryjoUYKYGANXJO0950-16-75 17:31:00 Test Item Value Reference Range Interpretation Comments Monocytes (test code = Monocytes) 6.7 2.0-12.0 [facility] 17:31:00 Test Item Value Reference Range Interpretation Comments Eosinophils (test code = 7.7 See_Comment [A utomated message] The Eosinophils) system which ge nerated this result tra nsmitted reference range : <=4.0. The reference r caleb was not used to int erpret this result as normal/abnormal . [facility] CenterCvnqggiZBJOYEJALX3452-76-97 17:31:00 Test Item Value Reference Range Interpretation Comments Basophils (test code = 0.6 See_Comment [Aut omated message] The Basophils) system which ge nerated this result tra nsmitted reference range : <=1.0. The reference r caleb was not used to int erpret this result as normal/abnormal . [facility] CenterKirnlcpUSJTNDSOFK6357-30-75 17:31:00 Test Item Value Reference Range Interpretation Comments Neutrophils # (test code = Neutrophils 2.9 1.5-8.1 #) [facility] CenterGmvezqpICZPOMDVIG3668-84-30 17:31:00 Test Item Value Reference Range Interpretation Comments Lymphocytes # (test code = Lymphocytes 1.7 1.0-5.5 #) [facility] CenterUqmlaqmDAVKGPXQCR6713-15-51 17:31:00 Test Item Value Reference Range Interpretation Comments Monocytes # (test code 0.4 See_Comment [Aut omated message] The = Monocytes #) system which generated this result tra nsmitted reference range : <=0.8. The reference r caleb was not used to int erpret this result as normal/abnormal . [facility] CenterGjhpzpuJQEMAGRDAP0994-06-74 17:31:00 Test Item Value Reference Range Interpretation Comments Eosinophils # (test code 0.4 See_Comment [A utomated message] The = Eosinophils #) system whic h generated this result tra nsmitted reference range : <=0.5. The reference r caleb was not used to int erpret this result as normal/abnormal . [facility]MwwalutXTJUAEFEUS0125-67-04 17:31:00 Test Item Value Reference Range Interpretation Comments Coronavirus (COVID-19) Not Detected (10/02/21 LIZBETH (test code = 11:31 AM) Coronavirus (COVID-19) LIZBETH) [facility] VULTDNGJQ5325-80-09 17:31:00 Test Item Value Reference Range Interpretation Comments Hgb A1C (test code = Hgb A1C) 5.7 [place] 113511-09-30 07:37:00 Test Item Value Reference Range Interpretation Comments Sed Rate (test code = 2 See_Comment [Auto mated message] The Sed Rate) system which ge nerated this result transmit leydi reference range : <=15. The reference range was not used to interpr et this result as krishna l/abnormal. [facility] HospitalHldftpsTFHLMLCQCY5297-88-68 07:37:00 Test Item Value Reference Range Interpretation Comments C-REACTIVE PROTEIN (test code = 8.4 C-REACTIVE PROTEIN) [place] 866401-09-30 01:10:00 Test Item Value Reference Range Interpretation Comments Calcium Lvl (test code = Calcium Lvl) 9.1 8.5-10.5 [place] 866401-09-30 01:10:00 Test Item Value Reference Range Interpretation Comments AGAP (test code = AGAP) 9.8 10.0-20.0 [place] 866401-09-30 01:10:00 Test Item Value Reference Range Interpretation Comments eGFR (test code = eGFR) 74 [place] 113511-09-30 01:10:00 Test Item Value Reference Range Interpretation Comments WBC X 10x3 (test code = WBC X 10x3) 5.9 3.7-10.4 [place] 113511-09-30 01:10:00 Test Item Value Reference Range Interpretation Comments RBC X 10x6 (test code = RBC X 10x6) 4.92 4.70-6.10 [place] 113511-09-30 01:10:00 Test Item Value Reference Range Interpretation Comments Hgb (test code = Hgb) 13.8 14.0-18.0 [place] 113511-09-30 01:10:00 Test Item Value Reference Range Interpretation Comments Hct (test code = Hct) 41.8 42.0-54.0 [place] 113511-09-30 01:10:00 Test Item Value Reference Range Interpretation Comments MCV (test code = MCV) 84.9 80.0-94.0 [place] 113511-09-30 01:10:00 Test Item Value Reference Range Interpretation Comments MCH (test code = MCH) 28.0 pg 27.0-31.0 [facility] CenterVpowzgeWASBWMBLIK6802-72-64 01:10:00 Test Item Value Reference Range Interpretation Comments MCHC (test code = MCHC) 33.0 32.0-36.0 [facility] CenterDhxcwkpIXNOWLKLSD0503-55-16 01:10:00 Test Item Value Reference Range Interpretation Comments RDW (test code = RDW) 14.0 11.5-14.5 [facility] CenterBhtrxuxINUHBLBTMV0992-24-13 01:10:00 Test Item Value Reference Range Interpretation Comments Platelet (test code = Platelet) 171 133-450 [facility] CenterTihhebxRBJNLMWWMU0725-14-57 01:10:00 Test Item Value Reference Range Interpretation Comments MPV (test code = MPV) 8.8 7.4-10.4 [place] 113511-09-30 01:10:00 Test Item Value Reference Range Interpretation Comments Segs (test code = Segs) 42.2 45.0-75.0 [facility] CenterUlycykrFAPYLQPGFI4570-15-26 01:10:00 Test Item Value Reference Range Interpretation Comments Lymphocytes (test code = Lymphocytes) 37.9 20.0-40.0 [facility] CenterXhgnzsdYHAWZIANWH3465-61-83 01:10:00 Test Item Value Reference Range Interpretation Comments Monocytes (test code = Monocytes) 7.0 2.0-12.0 [facility] CenterIibfmsuBTMTTWEOYH2990-60-08 01:10:00 Test Item Value Reference Range Interpretation Comments Eosinophils (test code = 11.6 See_Comment [A utomated message] The Eosinophils) system which ge nerated this result tra nsmitted reference range : <=4.0. The reference r caleb was not used to int erpret this result as normal/abnormal . [facility] CenterVwlpovwTDVAWNPMRE0747-05-82 01:10:00 Test Item Value Reference Range Interpretation Comments Basophils (test code = 1.3 See_Comment [Aut omated message] The Basophils) system which ge nerated this result tra nsmitted reference range : <=1.0. The reference r caleb was not used to int erpret this result as normal/abnormal . [facility] CenterLhwpimdXQMKJKPCMA7767-01-08 01:10:00 Test Item Value Reference Range Interpretation Comments Neutrophils # (test code = Neutrophils 2.5 1.5-8.1 #) [place] 113511-09-30 01:10:00 Test Item Value Reference Range Interpretation Comments Lymphocytes # (test code = Lymphocytes 2.2 1.0-5.5 #) [place] 113511-09-30 01:10:00 Test Item Value Reference Range Interpretation Comments Monocytes # (test code 0.4 See_Comment [Aut omated message] The = Monocytes #) system which generated this result tra nsmitted reference range : <=0.8. The reference r caleb was not used to int erpret this result as normal/abnormal . [place] 113511-09-30 01:10:00 Test Item Value Reference Range Interpretation Comments Eosinophils # (test code 0.7 See_Comment [A utomated message] The = Eosinophils #) system whic h generated this result tra nsmitted reference range : <=0.5. The reference r caleb was not used to int erpret this result as normal/abnormal . [place] 113511-09-30 01:10:00 Test Item Value Reference Range Interpretation Comments Basophils # (test code 0.1 See_Comment [Aut omated message] The = Basophils #) system which generated this result tra nsmitted reference range : <=0.2. The reference r caleb was not used to int erpret this result as normal/abnormal . [place] 866401-09-30 01:10:00 Test Item Value Reference Range Interpretation Comments Glucose Lvl (test code = Glucose Lvl) 115 70-99 [place] 866401-09-30 01:10:00 Test Item Value Reference Range Interpretation Comments BUN (test code = BUN) 13 7-22 [place] 866401-09-30 01:10:00 Test Item Value Reference Range Interpretation Comments Creatinine Lvl (test code = Creatinine 1.21 0.50-1.40 Lvl) [place] 866401-09-30 01:10:00 Test Item Value Reference Range Interpretation Comments Sodium Lvl (test code = Sodium Lvl) 141 135-145 [place] 866401-09-30 01:10:00 Test Item Value Reference Range Interpretation Comments Potassium Lvl (test code = Potassium 3.8 3.5-5.1 Lvl) [place] 866401-09-30 01:10:00 Test Item Value Reference Range Interpretation Comments Chloride Lvl (test code = Chloride Lvl) 110 95-109 [facility]2021-09-30 01:10:00 Test Item Value Reference Range Interpretation Comments CO2 (test code = CO2) 25 - [facility]2018-11-27 18:20:00 Test Item [...] Comments CO2 (test code = CO2) 30 - [facility]2018-11-27 18:20:00 Test Item [...] Comments BUN (test code = BUN) 18 -22 [facility]2018-11-27 18:20:00 Test Item Value Reference Range Interpretation Comments Creatinine Lvl (test code = Creatinine 1.18 0.50-1.40 Lvl) [facility][U] XRAY ELBOW 2 VWS RIGHT [id number] 15:57:00Images acquired, not reported on this accession number.[facility][U] XRAY WRIST MIN 3 VWS RIGHT [id number] 15:57:00Images acquired, not reported on this accession number.[facility]
--- NOTE | 2022-09-22 13:27 | RAD REPORT ---
EXAM DESCRIPTION: CT - Head Brain Wo Cont - 09/22/2022 1:22 pm CLINICAL HISTORY: Pain COMPARISON: 09/18/2022 TECHNIQUE: All CT scans are performed using dose optimization technique as appropriate and may inclu de automated exposure control or mA/KV adjustment according to patient size. FINDINGS: No intracranial hemorrhage, hydrocephalus or extra-axial fluid collection.No areas of brai n edema or evidence of midline shift. Right frontal approach ventriculostomy which terminates at the level of the third ventricle midline. Chronic left mastoid effusion. The calvarium is intact. IMPRESSION: No acute intracranial abnormality. Unchanged left mastoid effusion.
--- NOTE | 2022-09-22 13:52 | RAD REPORT ---
EXAM DESCRIPTION: RAD - Shuntogram - 09/22/2022 1:44 pm CLINICAL HISTORY: [place] COMPARISON: Abdomen Pelvis W Contrast dated 09/18/2022; Head Brain Wo Cont dated 09/22/2022 FINDINGS/IMPRESSION: Right frontal approach ventriculostomy. No evidence of shunt discontinuity. The shunt terminates in the epigastrium. The lungs are clear. The bowel gas pattern is nonobstructive.
--- NOTE | 2022-09-22 14:00 | EDPHYS ---
Physician Documentation [facility] Name: Terry Akins Sr Age: 42 yrs Sex: Male : 1980 Arrival Date: 09/22/2022 Time: 12:23 Bed 13 Private MD: ED Physician Talon Whitt HPI: 09/22 13:34 This 42 yrs old Black Male presents to ER via Unassigned with complaints of Headache, snw Nausea. 13:34 The patient complains of pain to the forehead, left side of the back of head, left side snw of forehead, left temporal area, right side of the back of head, right temporal area and right side of forehead. The patient describes the headache as constant. Onset: The symptoms/episode began/occurred gradually. Associated signs and symptoms: Pertinent positives: nausea, blurred vision. Severity of symptoms: At its worst the pain was severe. Headache History: Other pt was here earlier in the week with same. Sees Dr. Vazquez. Has a [employer] shunt per Dr. Medeiros, Neurosurgery at [place]. Also sees Dr. Johnston for mastoiditis (chronic). The patient has experienced similar episodes in the past, multiple times. as noted. Historical: - Allergies: 13:55 No Known Allergies; ss - PMHx: 13:55 Hypertensive disorder; Migraine; ss - PSHx: 13:55 Appendectomy; carpal tunnel right; hernia; left hand tendonitis; Nerve transplantion; ss shunt; - Immunization history:: Adult Immunizations. - Social history:: Smoking status: unknown. ROS: 13:53 Eyes: Negative for injury, pain, redness, and discharge, +blurry vision ENT: Negative snw for injury, pain, and discharge, Neck: Negative for injury, pain, and swelling, Cardiovascular: Negative for chest pain, palpitations, and edema, Respiratory: Negative for shortness of breath, cough, wheezing, and pleuritic chest pain. 13:53 Back: Negative for injury and pain, : Negative for injury, bleeding, discharge, and swelling, MS/Extremity: Negative for injury and deformity, Skin: Negative for injury, rash, and discoloration, Psych: Negative for depression, anxiety, suicide ideation, homicidal ideation, and hallucinations. 13:53 Constitutional: Positive for body aches, fatigue, malaise. 13:53 Abdomen/GI: Positive for nausea and vomiting. 13:53 Neuro: Positive for headache. Exam: 13:10 Head/Face: Normocephalic, atraumatic. snw 13:10 ENT: Nares patent. No nasal discharge, no septal abnormalities noted. Tympanic membranes are normal and external auditory canals are clear. Oropharynx with no redness, swelling, or masses, exudates, or evidence of obstruction, uvula midline. Mucous membranes moist. Neck: Trachea midline, no thyromegaly or masses palpated, and no cervical lymphadenopathy. Supple, full range of motion without nuchal rigidity, or vertebral point tenderness. No Meningismus. Chest/axilla: Normal chest wall appearance and motion. Nontender with no deformity. No lesions are appreciated. Cardiovascular: Regular rate and rhythm with a normal S1 and S2. No gallops, murmurs, or rubs. Normal PMI, no JVD. No pulse deficits. Respiratory: Lungs have equal breath sounds bilaterally, clear to auscultation and percussion. No rales, rhonchi or wheezes noted. No increased work of breathing, no retractions or nasal flaring. Abdomen/GI: Soft, non-tender, with normal bowel sounds. No distension or tympany. No guarding or rebound. No evidence of tenderness throughout. Back: No spinal tenderness. No costovertebral tenderness. Full range of motion. Skin: Warm, dry with normal turgor. Normal color with no rashes, no lesions, and no evidence of cellulitis. MS/ Extremity: Pulses equal, no cyanosis. Neurovascular intact. Full, normal range of motion. 13:10 Constitutional: The patient appears alert, awake, anxious, obese, restless, uncomfortable. 13:10 Eyes: Periorbital structures: appear normal, keeping closed 2nd to photophobia. 13:10 Neuro: Orientation: is normal, Mentation: is normal, Memory: is normal, Gait: is steady, Abnormal movements: there are no abnormal movements. 15:58 Neuro: Cranial nerves: grossly normal, is grossly normal based on the patient's age, no sin acute changes, Cerebellar function: is grossly normal, is grossly normal based on the patient's age, no acute changes, Motor: is normal, no acute changes, moves all fours, strength is normal, strength is 5/5 in all extremities, Sensation: is normal, no obvious gross deficits, appropriate no acute changes, numbness, is not appreciated, tingling, is not appreciated. Vital Signs: 13:54 BP 179 / 107; Pulse 71; Resp 18; Temp 97.8(TE); Pulse Ox 100% on R/A; ss 16:30 BP 168 / 88; Pulse 62; Resp 18; Pulse Ox 98% on R/A; Pain 0/10; db 16:38 BP 150 / 91; Pulse 61; Resp 18; Pulse Ox 98% on R/A; db 17:00 BP 143 / 86; Pulse 56; Resp 18; Pulse Ox 98% on R/A; db Woodruff Coma Score: 14:01 Eye Response: spontaneous(4). Verbal Response: oriented(5). Motor Response: obeys snw commands(6). Total: 15. MDM: 13:10 Patient medically screened. snw 14:01 Differential diagnosis: hypertensive headache, hyponatremia, migraine, sinusitis. Data snw reviewed: vital signs, nurses notes, radiologic studies, CT scan, plain films. External Records Reviewed: pt was here recently for same s/s, pt has not followed up with his Neurosurgeon or in regards to his chronic mastoid effusion. Counseling: I had a detailed discussion with the patient and/or guardian regarding: the historical points, exam findings, and any diagnostic results supporting the discharge/admit diagnosis, the presence of at least one elevated blood pressure reading (>120/80) during this emergency department visit, radiology results, the need for outpatient follow up, for definitive care, to return to the emergency department if symptoms worsen or persist or if there are any questions or concerns that arise at home. Special discussion: I have referred the patient to see his PCP for further evaluation of high blood pressure. Based on the history and exam findings, there is no indication for further emergent testing or inpatient evaluation. Neurosurgery. 16:02 ED course: Pt hostile, states he wants benadryl which he has already taken at home. Pt snw refuses to leave ED. Requests seeing Dr. Whitt. Dr. Whitt took over care of patient.. 09/22 13:11 Order name: SARS RAPID; Complete Time: 17:19 snw 09/22 13:08 Order name: CT Head Brain wo Cont; Complete Time: 13:45 snw 02/11 13:08 Order name: Shuntogram XRAY; Complete Time: 13:53 snw 09/22 15:58 Order name: Oxygen: 2 liter; Complete Time: 17:49 sin Administered Medications: 14:15 Drug: Phenergan (promethazine) 25 mg Route: IM; Site: right deltoid; db 16:44 Follow up: Response: No adverse reaction db 14:15 Drug: Ketorolac 30 mg Route: IM; Site: right deltoid; db 16:44 Follow up: Response: No adverse reaction db 16:44 Drug: NS 0.9% 1000 ml Route: IV; Rate: 1 bolus; Site: right antecubital; db 17:49 Follow up: Response: No adverse reaction; IV Status: Completed infusion; IV Intake: db 1000ml 16:44 Drug: Ketorolac 30 mg Route: IVP; Site: right antecubital; db 17:49 Follow up: Response: No adverse reaction; Pain is decreased db 16:44 Drug: Reglan (metoCLOPramide) 10 mg Route: IVP; Site: right antecubital; db 17:49 Follow up: Response: No adverse reaction; Pain is decreased db 16:44 Drug: Benadryl (diphenhydrAMINE) 50 mg Route: IVP; Site: right antecubital; db 17:48 Follow up: Response: No adverse reaction; Pain is decreased db Disposition: 16:00 Co-signature as Attending Physician, Talon Whitt MD I agree with the assessment and sin plan of care. Disposition Summary: 09/22/22 13:59 Discharge Ordered Location: Home snw Condition: Stable snw Diagnosis - Chronic Mastoiditis, Acute headache, Essential hypertension snw Followup: snw - With: Emergency Department - When: As needed - Reason: Worsening of condition Followup: snw - With: Private Physician - When: 1 - 2 days - Reason: Recheck today's complaints, Continuance of care, Re-evaluation by your physician Discharge Instructions: - Discharge Summary Sheet snw - Cervicogenic Headache snw - Hypertension, Adult snw - Managing Your Hypertension snw - Form - Headache Record snw Forms: - Medication Reconciliation Form snw - Thank You Letter snw - Antibiotic Education snw - Prescription Opioid Use snw Prescriptions: - orphenadrine citrate 100 mg Oral Tablet Sustained Release - take 1 tablet by ORAL route 2 times per day As needed; 20 tablet; Refills: 0, snw Product Selection Permitted Signatures: Dispatcher [employer] Talon Vargas MD MD cha Waters, Shelly, ADJUNCT BUSINESS INSTRUCTOR-C ADJUNCT BUSINESS INSTRUCTOR-Yolyw Natasha Holm, RN RN ss Jaky Lara RN RN db
--- NOTE | 2022-09-22 14:00 | ER ---
Nurse's Notes [facility] Name: Terry Akins Sr Age: 42 yrs Sex: Male : 1980 Arrival Date: 09/22/2022 Time: 12:23 Bed 13 Private MD: Diagnosis: Chronic Mastoiditis, Acute headache, Essential hypertension Presentation: 09/22 13:54 Chief complaint: Patient states: c/o ADAMSON and nausea. Coronavirus screen: Client denies ss travel out of the [place] in the last 14 days. Ebola Screen: Patient denies exposure to infectious person. Patient denies travel to an Ebola-affected area in the 21 days before illness onset. Initial Sepsis Screen: Does the patient meet any 2 criteria? No. Patient's initial sepsis screen is negative. Does the patient have a suspected source of infection? No. Patient's initial sepsis screen is negative. Risk Assessment: Do you want to hurt yourself or someone else? Patient reports no desire to harm self or others. Onset of symptoms was September 22, 2022. 13:54 Method Of Arrival: Ambulatory ss 13:54 Acuity: SARITHA 3 ss Triage Assessment: 15:00 Headache History: The patient has had previous headaches and this one is similar to db previous episodes. General: Behavior is agitated. General: Appears in no apparent distress. uncomfortable. Pain: Pain currently is 10 out of 10 on a pain scale. at worst was 10 out of 10 on a pain scale. Pain began gradually, Also complains of. Historical: - Allergies: 13:55 No Known Allergies; ss - PMHx: 13:55 Hypertensive disorder; Migraine; ss - PSHx: 13:55 Appendectomy; carpal tunnel right; hernia; left hand tendonitis; Nerve transplantion; ss shunt; - Immunization history:: Adult Immunizations. - Social history:: Smoking status: unknown. Screenin:29 [facility] ED Fall Risk Assessment (Adult) History of falling in the last 3 months, db including since admission No falls in past 3 months (0 pts) Confusion or Disorientation No (0 pts) Intoxicated or Sedated No (0 pts) Impaired Gait No (0 pts) Mobility Assist Device Used No (0 pt) Altered Elimination No (0 pt) Score/Fall Risk Level 0 - 2 = Low Risk Oriented to surroundings, Maintained a safe environment. Abuse screen: Denies threats or abuse. Denies injuries from another. Nutritional screening: No deficits noted. Tuberculosis screening: No symptoms or risk factors identified. Assessment: 14:00 Reassessment: patient refused covid swab. db 14:15 Reassessment: Patient appears in no apparent distress at this time. Patient and/or db family updated on plan of care and expected duration. Pain level reassessed. Patient is alert, oriented x 3, equal unlabored respirations, skin warm/dry/pink. patient states has migraine with nausea and pain started suddenly. General: Appears in no apparent distress. comfortable. Pain: Complains of pain in left temporal area and left side of forehead. Pain: Complains of pain in right side of forehead and right temporal area. Neuro: No deficits noted. Neuro: Level of Consciousness is awake, alert, obeys commands, Oriented to person, place, time, situation, Speech is normal. 14:29 Reassessment: Patient appears in no apparent distress at this time. discharged patient. db Patient states does not want to leave wants headache cocktail and benadryl. States toradol is not strong enough. States wants to speak to Dr. Whitt. Notified provider Justyna Obregon and Dr. Whitt that patient would like to stay and does not want to leave until he gets the headache cocktail that he always gets. 15:00 Reassessment: Patient appears in no apparent distress at this time. Patient calling db nurse states refuses to leave until Dr. Whitt orders more medications. 15:00 Reassessment: Security at patient bedside. BRYN Kaur charge at patient bedside. db Patient refuses to leave. Arguing with staff. Patient becoming belligerent with staff and yelling. 15:25 Reassessment: patient spoke to Dr. Whitt. Patient upset because physician will not db order more pain medications. Patient is arguing with staff. 15:51 Reassessment: patient yelling at francoise Jansen. Yelling at staff now at doctors db desk. 15:51 Reassessment: Jennifer Brown called on patient due to becoming belligerent and yelling at db staff. 16:30 Reassessment: Patient appears in no apparent distress at this time. Patient and/or db family updated on plan of care and expected duration. Pain level reassessed. Patient is alert, oriented x 3, equal unlabored respirations, skin warm/dry/pink. patient has calmed down and apologized for yelling at staff. 17:49 Reassessment: Patient appears in no apparent distress at this time. Patient and/or db family updated on plan of care and expected duration. Pain level reassessed. Patient is alert, oriented x 3, equal unlabored respirations, skin warm/dry/pink. Patient states feeling better. Patient states symptoms have improved. Reassessment: states pain has gone away now. General: Appears in no apparent distress. comfortable, Behavior is calm, cooperative. General: Appears in no apparent distress. comfortable, Behavior is calm, cooperative. Pain: Denies pain. Respiratory: No deficits noted. Airway is patent Respiratory effort is even, unlabored, Respiratory pattern is regular, symmetrical. Vital Signs: 13:54 BP 179 / 107; Pulse 71; Resp 18; Temp 97.8(TE); Pulse Ox 100% on R/A; ss 16:30 BP 168 / 88; Pulse 62; Resp 18; Pulse Ox 98% on R/A; Pain 0/10; db 16:38 BP 150 / 91; Pulse 61; Resp 18; Pulse Ox 98% on R/A; db 17:00 BP 143 / 86; Pulse 56; Resp 18; Pulse Ox 98% on R/A; db Omar Coma Score: 14:01 Eye Response: spontaneous(4). Verbal Response: oriented(5). Motor Response: obeys snw commands(6). Total: 15. ED Course: 12:23 Patient arrived in ED. rg4 13:10 Jenn Obregon FNP-C is PHCP. snw 13:12 Talon Whitt MD is Attending Physician. snw 13:23 CT Head Brain wo Cont In Process Unspecified. EDMS 13:45 Jenn Obregon FNP-C is PHCP. snw 13:45 Talon Whitt MD is Attending Physician. snw 13:46 Shuntogram XRAY In Process Unspecified. EDMS 13:55 Triage completed. ss 13:55 Arm band placed on right wrist. ss 14:09 Jaky Lara, RN is Primary Nurse. db 14:29 No provider procedures requiring assistance completed. db 15:52 Police [place] [employer] CALLED / DISPATCH WILL BE SENDING AN OFFICER. eb 16:30 IV discontinued, intact, bleeding controlled, No redness/swelling at site. db 16:38 Missed attempt(s): 20 gauge in left antecubital area. Bleeding controlled, band aid db applied, catheter tip intact. 16:40 Inserted saline lock: 22 gauge in right antecubital area, using aseptic technique. db Blood collected. 17:08 Bed in low position. Call light in reach. Side rails up X 1. Pulse ox on. NIBP on. Warm db blanket given. Administered Medications: 14:15 Drug: Phenergan (promethazine) 25 mg Route: IM; Site: right deltoid; db 16:44 Follow up: Response: No adverse reaction db 14:15 Drug: Ketorolac 30 mg Route: IM; Site: right deltoid; db 16:44 Follow up: Response: No adverse reaction db 16:44 Drug: NS 0.9% 1000 ml Route: IV; Rate: 1 bolus; Site: right antecubital; db 17:49 Follow up: Response: No adverse reaction; IV Status: Completed infusion; IV Intake: db 1000ml 16:44 Drug: Ketorolac 30 mg Route: IVP; Site: right antecubital; db 17:49 Follow up: Response: No adverse reaction; Pain is decreased db 16:44 Drug: Reglan (metoCLOPramide) 10 mg Route: IVP; Site: right antecubital; db 17:49 Follow up: Response: No adverse reaction; Pain is decreased db 16:44 Drug: Benadryl (diphenhydrAMINE) 50 mg Route: IVP; Site: right antecubital; db 17:48 Follow up: Response: No adverse reaction; Pain is decreased db Medication: 17:08 VIS not applicable for this client. db Intake: 17:49 IV: 1000ml; Total: 1000ml. db Outcome: 13:59 Discharge ordered by MD. snw 14:31 Discharged to patient refusing discharge at this time. db 16:30 Discharged to home ambulatory. db 16:30 Condition: stable 16:30 Discharge instructions given to patient, Prescriptions given X 1. 17:52 Patient left the ED. db Signatures: Dispatcher [employer] EDJenn Cheung, REESE REED-Natasha Mcclure RN RN ss Garcia, Rubi rg4 Alva Barney Danielle, RN RN db
[2022-09-22] MEDS ORDERED: PROMETHAZINE INJ 25 MG/ML AMP ONE (14:18)
[2022-09-22] MEDS ORDERED: KETOROLAC 30 MG/ML INJ ONE ×2 (14:19→16:25)
[2022-09-22] MEDS ORDERED: NA CHLORIDE 0.9% 1,000 ML ONE (16:25)
[2022-09-22] MEDS ORDERED: DIPHENHYDRAMINE 50 MG/ML VIAL ONE (16:25)
[2022-09-22] MEDS ORDERED: NA CHLORIDE 0.9% 50 ML ONE (16:25)
[2022-09-22] MEDS ORDERED: METOCLOPRAMIDE 10 MG/2mL INJ ONE (16:26)
[2022-09-22 17:06] LABS: SARS-CoV-2 Antigen Rapid Res Negative (Negative)
[2022-09-22 17:57] VITALS: TEMP 97.8
[2022-09-22 17:58] VITALS: O2SAT 98
[2022-09-22 18:01] VITALS: BP 143/86
== END 2022-09-22 17:52 | disposition home or self-care (01) ==
LOC: ER 12:21
DX: R51.9 Headache, unspecified (principal); H70.10 Chronic mastoiditis, unspecified ear; I10 Essential (primary) hypertension; Z98.2 Presence of cerebrospinal fluid drainage device; Z20.822 Contact with and (suspected) exposure to COVID-19
CPT/HCPCS: 96361; 36415; 70450; 75809; 49427; 96375; 96372; 96374; 99284; 87811; J2765; J2550; J1200; J7030

== ENCOUNTER 2022-12-12 13:27 | Emergency (ER) | payer OTHER ==
--- OUTSIDE RECORDS SUMMARY | 2022-12-12 13:38 | XMS REPORT | Continuity of Care Document ---
:1980 Author Organization [facility] t Address [address] [facility] [address] [place] [address] Care Team Providers Name Role Phone Asked, No Pcp Primary Care Physician Unavailable John Vazquez Attending Clinician Unavailable GERONIMO BALDERAS Attending Clinician Unavailable NOAH OSORIO Attending Clinician Unavailable JUNIOR KUMAR Attending Clinician Unavailable CRIS JAIMES Attending Clinician Unavailable Scarlett Lamas MD Attending Clinician [phone] SCARLETT LAMAS Attending Clinician Unavailable Manasa Nogueira MD Attending Clinician ANU TUCKER Attending Clinician Unavailable NOAH OSORIO Attending Clinician Unavailable SONIA ROBERTS Attending Clinician Unavailable Marcella CLEMENTE, Rae Attending Clinician Unavailable Gonzalo OTT, Layne Attending Clinician Unavailable Geronimo Balderas MD Attending Clinician Dorothea Delgadillo MA Attending Clinician Unavailable Amelia Cameron MA Attending Clinician Unavailable Brii Howard MA Attending Clinician Unavailable Doctor Unassigned, Frederica Attending Clinician Unavailable 1, [employer] [...] Number Effective Expiration Source Type Date Date [facility] MEDICA[facility] STAR [id number] 2018 00:00:00 [facility] [id number] 2018 [facility] CHO[facility] 00:00:00 - [facility] [id number] 2018 Common S pirit CHOICE 00:00:00 - [facility] [id number] 2018 Common S pirit CHOICE 00:00:00 - [facility] [id number] 2018 Common S pirit CHOICE 00:00:00 - [facility] [id number] 2019 Arlene espinoza [facility] 00:00:00 [place] [facility] MEDICAIDCOMMUNITY [facility] [id number]/2019-Present[address], [place] [address]Medicaid [facility] [id number] 2018 Common S pirit CHOICE 00:00:00 - [facility] [id number] 2018 Common S pirit CHOICE 00:00:00 - [facility] [id number] 2018 Common S pirit CHOICE 00:00:00 - [facility] Problems Condition Condition Condition Status Onset Resolution Last Treating Co mments Source Name Details Category Date Date Treatment Clinician Date BMI BMI Disease Active 2021-08 [place] 40.0-44.9, 40.0-44.9, 0-07 He alth adult adult 00:00: 00 UNSPECIFIE UNSPECIFI Diagnosis Active 2021-10-26 Memoria D ED 3-15 18:20:00 l ABDOMINAL ABDOMINAL 00:00: Herm faina PAIN PAIN 00 Active 10/24/2021 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 STATE ASSESSED PROPERTIES DIRECTOR SHUNT STATE ASSESSED PROPERTIES DIRECTOR SHUNT Diagnosis Active 2021-10-26 Memoria MALF MALF 10-08 18:20:00 l Active 00:00: Davidson 10/08/[address] [facility] G96.00 G96.00 Diagnosis Active 2021-10-26 Me moria Active 09-28 18:20:00 l 09/28/2021 00:00: Sadi gresham [address] MD LOJA Diagnosis Active 2021-05-10 Mem oria REFERRAL/ REFERRAL/ 05-10 20:33:00 l FLUIDS FLUIDS 00:00: [place] LEAKING LEAKING 00 FROM EAR FROM EAR Active 05/10/2021 [facility] CSF CSF Disease Active [facility] otorrhea otorrhea 05-09 Health 00:00: 00 Syncope Syncope Disease Active 2017-08 [facility] 00 l Lesion of Lesion of Problem 2019-01-26 Memoria ulnar ulnar 15:19:24 l nerve, nerve, Davidson right right upper limb upper limb 01/26/2019 [place] Unspecifie Unspecifi Problem 2019-01-26 Memoria d ed 15:19:24 l osteoarthr osteoarthr He rmann itis, itis, unspecifie unspecifie d site d site 01/26/2019 [place] Sleep Sleep Problem 2019-01-26 Memor ia apnea, apnea, 15:19:24 l unspecifie unspecifie He rmann d d 01/26/2019 [place] Unspecifie Unspecifi Problem 2019-01-26 Memoria d asthma, ed asthma, 15:19:24 l uncomplica uncomplica He rmann leydi leydi 01/26/2019 [place] Anxiety Anxiety Problem 2019-01-26 [place] moria disorder, disorder, 15:19:24 l unspecifie unspecifie He rmann d d 01/26/2019 [place] Gastro-eso Gastro-es Problem 2019-01-26 Memoria phageal ophageal 15:19:24 l reflux reflux Davidson disease disease without without esophagiti esophagiti s s 01/26/2019 [place] Essential Essential Problem 2019-01-26 Memoria (primary) (primary) 15:19:24 l hypertensi hypertensi He rmann on on 01/26/2019 [place] Personal Personal Problem 2019-01-26 Memoria history of history of 15:19:24 l nicotine nicotine Sadi n dependence dependence 01/26/2019 [place] Allergy Allergy Problem 2019-01-26 [place] moria status to status to 15:19:24 l analgesic analgesic Herm faina agent agent status status 01/26/2019 [place] long term long term Problem 2019-01-26 Memoria (current) (current) 15:19:24 l use of use of Davidson non-steroi non-steroi siddharth siddharth anti-infla anti-infla mmatories mmatories (NSAID) (NSAID) 01/26/2019 [place] Dependence Dependenc Problem 2019-01-26 Memoria on other e on other 15:19:24 l enabling enabling Sadi n machines machines and and devices devices 01/26/2019 [place] Arthrodesi Arthrodes Problem 2019-01-26 Memoria s status is status 15:19:24 l 01/26/2019 Sadi n [place] Cerebrospi Cerebrosp Problem Active 2021-10-27 Memoria nal fluid inal fluid 23:21:02 l leak leak Davidson (disorder) (disorder) Active Problem 10/27/2021 [facility], RHODA Cedeño, RHODA Burr Chest pain Chest Problem Active 2021-10-27 M emoria (finding) pain 23:21:02 l (finding) Davidson Active Problem 10/27/2021 [facility], RHODA Cedeño, RHODA Burr,M H [place] Morbid Morbid Problem Active 2021-10-27 David katarzyna obesity obesity 23:21:02 l (disorder) (disorder) He rmann Active Problem 10/27/2021 [facility], RHODA Cedeño, RHODA Burr Rhabdomyol Rhabdomyo Problem Active 2021-10-27 Memoria ysis lysis 23:21:02 l (disorder) (disorder) He rmann Active Problem 10/27/2021 [facility], RHODA Cedeño, RHODA Burr,M H [place] Smoker Smoker Problem Active 2021-10-27 David katarzyna (finding) (finding) 23:21:02 l Active Davidson Problem 10/27/2021 [facility], RHODA Cedeño, RHODA Burr MECH COMPL MECH Diagnosis Active 2021-10-26 Memoria OF COMPL OF 18:20:00 l VENTRICULA VENTRICULA He jose alfredo R R INTRACRANI INTRACRANI AL S AL S Active 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 [facility] [id number] Non-season Problem Com mon al Spirit allergic - [facility], [id number] Mild Problem Common intermitte Spirit nt asthma - CHI with allergic [facility] rhinitis, [facility] unspecifie Center d whether complicate d [id number] Depression Problem Co mmon with Spirit anxiety - [facility] [id number] Migraine Problem Comm on without Spirit aura and - CHI without [facility] migrainosu Medica l s, not Center intractabl e [id number] Attention Problem Comm on deficit Spirit hyperactiv - CHI ity [facility] (ADHD), Medical combined Center type [id number] Primary Problem Comm on osteoarthr Spirit itis of - CHI right knee [facility] [id number] Pain in Problem Common right knee Spirit - CHI [facility] [id number] Left Problem Common maxillary Spirit sinusitis - [facility] [id number] Hypertensi Problem Com mon on, Spirit unspecifie - CHI d type [facility] [id number] GERD Problem Common without Spirit esophagiti - CHI s [facility] [id number] Tobacco Problem Commo n use Spirit disorder - [facility] [id number] Other Problem Common chronic Spirit pain - [facility] [id number] Mixed Problem Common hyperlipid Spirit emia - [facility] [id number] Decreased Problem Com mon hearing of Spirit left ear - [facility] [id number] Loss of Problem Common taste Spirit [facility] Sprain of Sprain of Problem Resolve 2021-10-27 2021-10-27 Memoria ligament ligament d 5-13 23:21:02 23:21:02 l of finger of finger 00:00: Anya eisenberg (disorder) (disorder) 00 Resolved 12/23/2011 Problem 10/27/2021 [facility], RHODA Cedeño, RHODA Burr,M [place] History of Past Illness Condition Condition Condition Status Onset Resolution Last Treating Co mments Source Name Details Category Date Date Treatment Clinician Date Headache, Headache, Problem 2021-05-13 2021-05-13 Memoria unspecifie unspecifie 05-10 21:21:08 21:21:08 l d d 17:00: Davidson 05/10/2021 00 05/13/2021 [facility] Carpal Carpal Problem 2017-2019-01-26 2019-01-26 Memoria tunnel tunnel 2- 15:19:24 15:19:24 l syndrome, syndrome, 04:59: Anya eisenberg right right 41 upper limb upper limb 07/17/2018 01/26/2019 [place] Obstructiv Obstructi Problem 2017-082019-01-11 2019-01-11 Mike e sleep ve sleep 08-28 11:08:48 11:08:48 l apnea apnea 05:23: [place] (adult) (adult) 17 (pediatric (pediatric ) ) 06/28/2018 01/11/2019 [place] Unspecifie Problem 2017-082018-12-03 2018-12-03 Memoria d Unspecifie 0-11 14:53:30 14:53:30 l mononeurop d 04:28: Sadi gresham athy of mononeurop 42 right athy of upper limb right upper limb 05/22/2018 12/03/2018 [place] Pain in Pain in Problem 2017-082018-12-03 2018-12-03 Memoria arm, arm, 0-05 14:53:30 14:53:30 l unspecifie unspecifie 05:00: Harpreet veliz d d 00 05/16/2018 12/03/2018 [place] Allergies, Adverse Reactions, Alerts Allergy Allergy Status Severity Reaction(s) Onset Inactive Treating Comm ents Source Name Type Date Date Clinician NO KNOWN Drug Active Univers ALLERGIE Class ity of S [facility] Acetamin drug Active Headache [facility] ophen allergy Physici TABS ans NO KNOWN Allergy Active [facility] Family History Family Member Diagnosis Comments Start Date Stop Date Source Other Diabetes [facility] natural son Family history of [facility] Phy sicians asthma Mother Family history of [facility] Phys icians multiple sclerosis Father Family history of [facility] Phys icians Knee pain Unknown Family history of Family History [facility] Physicians Family Member diabetes mellitus Unknown Family history of Family History [facility] Physicians Family Member Heart trouble Unknown Family history of Family History [facility] Physicians Family Member hypertension Unknown Family history of Family History [facility] Family Member arthritis Unknown Family history of Family History [facility] Family Member malignant neoplasm Unknown Family history of Family History [facility] Family Member cerebrovascular accident (CVA) Social History Social Habit Start Date Stop Date Quantity Comments Source History [facility] Alcohol Frequency History [facility] Alcohol Std Drinks History [facility] Health Alcohol Binge Gender identity [facility] History of tobacco Current smoker [facility] Tobacco use and 2022-11-14 2022-11-14 Smokeless tobacco [facility] exposure 00:00:00 00:00:00 non-user [facility] Tobacco Comment 2022-11-14 2022-11-14 Pt quit few years [facility] 00:[facility] Exposure to 2022-09-18 2022-09-28 Not sure [facility] SARS-CoV-2 (event) 00:00:00 14:46:00 Alcohol Comment 2021-10-18 2021-10-18 Ocassionally [facility] 00:[facility]:00 00:00:00 Social History 2018-07-08 2018-07-08 [place] ranjit 18:40:37 18:40:37 Alcohol intake 2018-05-25 2018-05-25 Current non-drinker M ethodist 00:00:00 00:00:00 of [facility] (finding) Sex Assigned At [address] [facility] Bernice ogdens 00:00:00 00:00:00 Medical Center Smoking Status Start Date Stop Date Source Unknown if ever smoked [facility] Ex-smoker 2022-11-14 00:00:00 2022-11-14 00:00:00 [facility] Current Smoker 2022-06-22 00:00:00 Common Spiri t - [facility] Medical Ce nter Medications Ordered Filled Start Stop Current Ordering Indication Dosage Frequency Signature Comments Components Source Medication Medication Date Date Medication? Clinician (SIG) Name Name ondansetron Yes [address] (Zofran) 8 4-06 as needed Luke s MG tablet 16:50: Medical 17 Center traMADol 2022- Yes [id number] 50mg Q6H Take 1 UT (Ultram) 50 09-28 9106 tablet (50 H ealth MG tablet 00:00: 05:59 mg total) 00 :00 by mouth every 6 (six) hours if needed for severe pain for up to 5 days. omeprazole Yes [address] (PriLOSEC) 2-16 30 minutes Ariel es 40 MG 00:00: before Medical capsule 00 morning Center meal losartan 0 Yes 100mg QD Take [address] (COZAAR) 2-16 tablet [facility] 100 MG 00:00: (100 mg Medical tablet 00 total) by Center mouth in the morning. omeprazole 0 Yes UT (PriLOSEC) 2-[address] 00:00: capsule 00 losartan-hy 0 Yes UT droCHLOROth 2-16 Health iazide 00:00: (Hyzaar) 00 100-25 MG tablet ondansetron 2022- Yes 105 4mg UT (Zofran) 09-18-12 Health tablet 4 mg 16:42: 16:41 42 :42 traMADol 0 2022- Yes [id number] 50mg Q6H Take 1 UT (Ultram) 50 09-18- 9103 tablet (50 H ealth MG tablet 00:00: 05:59 mg total) 00 :00 by mouth every 6 (six) hours if needed for severe pain for up to 5 days. lisinopriL 0 Yes 40mg QD Take 1 CHI S t (PRINIVIL,Z 2-06 tablet (40 Bernice kes ESTRIL) 40 00:00: mg total) Me dical MG tablet 00 by mouth Center in the morning. ciprofloxac 2022- No [id number] 10[drp] Q.5D Administer UT in-dexameth 09-07 67182 10 drops He alth asone 00:00: 05:59 into each (Ciprodex) 00 :00 ear in the otic morning suspension and 10 drops in the evening. Do all this for 10 days. Lisinopril Lisinopril 2021-08 No 1{table QD Lisinopril 40 MG 40 MG 1-11 t} 40 MG 00:00: 00 Ondansetron Ondansetron 2021-08 No 1{table Ondansetro 4 MG 4 MG 1-11 t_on_th n 4 MG 00:00: e_tongu 00 e_and_a llow_to _dissol ve} Pantoprazol Pantoprazol 2021-08 No 1{table QD Pantoprazo e Sodium 40 e Sodium 40 1-11 t} le Sodium MG MG 00:00: 40 MG 00 Lisinopril Lisinopril 2021-08 No 1{table QD Lisinopril 40 MG 40 MG 1-11 t} 40 MG 00:00: 00 Ondansetron Ondansetron 2021-08 No 1{table Ondansetro 4 MG 4 MG 1-11 t_on n 4 MG 00:00: e_tongu 00 e_and_a llow_to _dissol ve} Pantoprazol Pantoprazol 2021-08 No 1{table QD Pantoprazo e Sodium 40 e Sodium 40 1-11 t} le Sodium MG MG 00:00: 40 MG 00 Lisinopril Lisinopril 2021-08 No 1{table QD Lisinopril 40 MG 40 MG 1-11 t} 40 MG 00:00: 00 Ondansetron Ondansetron 2021-08 No 1{table Ondansetro 4 MG 4 MG 1-11 t_on_th n 4 MG 00:00: e_tongu 00 e_and_a llow_to _dissol ve} Pantoprazol Pantoprazol 2021-08 No 1{table QD Pantoprazo e Sodium 40 e Sodium 40 1-11 t} le Sodium MG MG 00:00: 40 MG 00 Lisinopril Lisinopril 2021-08 No 1{table QD Lisinopril 40 MG 40 MG 08-22 t} 40 MG 00:00: 00 Pantoprazol Pantoprazol [...] Take 1 UT -clavulanat 0-03 tablet by [facility] e 00:00: mouth (Augmentin) 00 every 12 875-125 MG (twelve) tablet hours. FOR 7 DAYS topiramate 2021-08 Yes TAKE 1 UT (Topamax) 0-03 TABLET BY Healt h 25 MG 00:00: MOUTH tablet 00 EVERY 12 HOURS FOR 10 DAYS amoxicillin 2021-08 Yes 1{tbl} Q12H Take 1 UT -clavulanat 0-03 tablet by [facility] e 00:00: mouth (Augmentin) 00 every 12 875-125 MG (twelve) tablet hours. FOR 7 DAYS topiramate 2021-08 Yes TAKE 1 UT (Topamax) 0-03 TABLET BY Healt h 25 MG 00:00: MOUTH tablet 00 EVERY 12 HOURS FOR 10 DAYS amoxicillin 2021-08 Yes 1{tbl} Q12H Take 1 UT -clavulanat 0-03 tablet by [facility] e 00:00: mouth (Augmentin) 00 every 12 875-125 MG (twelve) tablet hours. FOR 7 DAYS topiramate 2021-08 Yes TAKE 1 UT (Topamax) 0-03 TABLET BY Healt h 25 MG 00:00: MOUTH tablet 00 EVERY 12 HOURS FOR 10 DAYS lisinopril Yes 20mg QD Take 20 mg U T 20 MG 8-16 by mouth 1 Health tablet 00:00: (one) time 00 each day. lisinopril Yes 20mg QD Take 20 mg U T 20 MG 8-16 by mouth 1 Health tablet 00:00: (one) time 00 each day. ofloxacin Yes INSTILL 4 UT (Floxin) 6-15 DROPS INTO Healt h 0.3 % otic 00:00: LEFT EAR solution 00 TWICE A DAY ofloxacin Yes INSTILL 4 UT (Floxin) 6-15 DROPS INTO Healt h 0.3 % otic 00:00: LEFT EAR solution 00 TWICE A DAY ofloxacin Yes INSTILL 4 UT (Floxin) 6-15 [...] Pain Score 7-10, Start date: 10/09/21 15:36:00 [employer] Ofirmev No or = 50 Memori a - kg, Start l 21:19: date: 10/09/21 15:19:00 [employer] sugammadex No Route: IV, M emoria (ANES) 10-09 Drug form: l 21:05: [place] DAVE ONCE, Stop date: 10/09/21 15:05:00 [employer] Hydromorpho No Notes: David katarzyna ne 10-09 Same as l 21:02: Dilaudid Flumazenil No Notes: Memor ia 10-09 (Same as: l 21:02: Romazicon) Naloxone No Notes: Memoria 10-09 Same as l 21:02: Narcan Ondansetron No 4 mg, Memor ia 10-09 Route: l 21:02: IVP, ONCE, Dosing Weight 156, kg, PRN Nausea & Vomiting, Start date: 10/09/21 15:02:00 [employer] ondansetron No Route: IV, Memoria (ANES) 10-09 Drug form: l 21:00: INJ, ONCE, Stop date: 10/09/21 15:00:00 [employer] ceFAZolin No Route: IV, Me moria (ANES) 10-09 Drug form: l 20:38: INJ, ONCE, Stop date: 10/09/21 14:38:00 [employer] propofol No Route: IV, Mem oria (ANES) 10-09 Drug form: l 20:33: INJ, ONCE, Stop date: 10/09/21 14:33:00 [employer] rocuronium No Route: IV, M emoria (ANES) 10-09 Drug form: l 20:33: INJ, ONCE, Stop date: 10/09/21 14:33:00 [employer] fentaNYL No Route: IV, Mem oria (ANES) 10-09 Drug form: l 20:33: INJ, ONCE, Stop date: 10/09/21 14:33:00 [employer] dexamethaso No Route: IV, Memoria ne (ANES) 10-09 Drug form: l 20:33: INJ, ONCE, Stop date: 10/09/21 14:33:00 [employer] lidocaine No Route: IV, Me moria (ANES) 10-09 Drug form: l 20:28: INJ, ONCE, Stop date: 10/09/21 14:28:00 [employer] Isolyte S No Route: IV, Me moria PH 7.4 10-09 Total l (ANES) 1000 19:29: Volume: Her jones mL 00 1,000, Start date: 10/09/21 13:29:00 [employer], Stop date: 10/09/21 14:29:00 [employer] Epinephrine Yes Notes: David katarzyna 0.01 MG/ML 10-09 (Same as: l / Lidocaine 18:26: Xylocaine H ermann Hydrochlori 00 w/Epinephr de 10 MG/ML ine) Injectable Solution Lidocaine No 1 patch, David katarzyna 0.05 MG/MG 10-09 Route: l Transdermal 15:00: TOP, Sadi n Patch 00 Daily, Drug form: FILM, Start date: 10/09/21 9:00:00 [employer], Duration: 30 day, Stop date: 11/07/21 9:00:00 CDT, 0 Levetiracet No 500 mg, 1 M emoria am 500 MG 10-09 tab, l Oral Tablet 15:00: Route: PO, [place] [Keppra] 00 Drug form: TAB, Q12H, Dosing Weight 156, kg, Start date: 10/09/21 9:00:00 [employer], Duration: 30 day, Stop date: 11/07/21 21:00:00 CDT, 0 Hydromorpho No Notes: David katarzyna ne 10-09 Same as l 13:57: Dilaudid [place] 00 Reglan No Notes: Memoria 2-28 (Same as: l 08:15: Reglan) [place] 00 Dilaudid No Notes: Memoria 2-28 Same as l 08:15: Dilaudid Sodium No 1,000 mL, Memori a Chloride - Rate: 75 l 0.9% IV 06:49: ml/hr, [place] 1,000 mL 00 Infuse over: 13.3 hr, Route: IV, Dosing Weight 156 kg, Total Volume: 1,000, Start date: 10/09/21 0:49:00 [employer], Duration: 30 day, Stop date: 11/08/21 0:48:00 CDT, BSA: 2.9 m2, 0 Docusate No Notes: Memoria 2-28 (Same as: l 03:00: Colace) [place] (Do Not Crush) sennosides, No Notes: David katarzyna LONG-TERM -28 (Same as: l 03:00: Senokot) [place] 00 Saline No Notes: Memoria Flush 0.9% 2-28 (Same as: l 03:00: BD [place] 00 Posiflush) Sodium No 1,000 mL, Memori a Chloride 2-28 Rate: 50 l 0.9% IV 01:57: ml/hr, [place] 1,000 mL 00 Infuse over: 20 hr, Route: IV, Dosing Weight 156 kg, Total Volume: 1,000, Start date: 10/08/21 19:57:00 [employer], Duration: 30 day, Stop date: 11/07/21 19:56:00 CDT, BSA: 2.9 m2, 0 Acetaminoph No Notes: Do M emoria en 2-28 not exceed l 01:57: 4 gm/day. [place] 00 (Same as: Tylenol) Acetaminoph No Notes: David katarzyna en 325 MG / 2-28 (Same as: l Hydrocodone 01:57: [place] Kelly nn Bitartrate 00 325/5) Do 5 MG Oral not exceed Tablet 4gm/day of acetaminop hen. Morphine No Notes: Memoria 2-28 (Same l 01:57: as:MORPhin [place] 00 e Sulfate) Bisacodyl No Notes: Memori a 2-28 (Same As: l 01:57: Dulcolax, [place] Bisco-Lax) Ondansetron No Notes: David katarzyna 2-28 [...] PRN Hypertensi on, Start date: 10/08/21 19:57:00 [employer], Duration: 3 doses or times, Stop date: Limited # of times, 0 Saline No Notes: Memoria Flush 0.9% - (Same as: l 01:57: BD [place] 00 Posiflush) Insulin No Notes: Memoria regular 2-28 (Same as: l 01:57: Humulin R) [place] 00 Roll in palms of hands gently; Do not shake vigorously . WASTE: F/P - Black; E - Municipal Trash Bin Stable for 31 days at room temperatur e Expires in days from ____Date Dilaudid No Notes: Memoria 2-28 Same as l 01:30: Dilaudid [place] Levetiracet Yes 500 mg = 1 Memoria am 500 MG 2-24 tab, PO, l Oral Tablet 13:52: Q12H, # 60 [place] [Keppra] 00 tab, 0 Refill(s), Pharmacy: [id number], 190.5, cm, 10/03/21 6:40:00 [employer], Height, 159.3, kg, 10/03/21 6:40:00 [employer], Weight docusate Yes 2 cap, PO, Mem oria sodium 50 2-24 QPM, X 10 l MG / 13:52: day, # 20 [place] sennosides, 00 cap, 0 LONG-TERM 8.6 MG Refill(s), Oral Pharmacy: [id number], 190.5, cm, 10/03/21 6:40:00 [employer], Height, 159.3, kg, 10/03/21 6:40:00 [employer], Weight magnesium Yes 8.725 gm = Me moria citrate 2-24 150 ml, l 58.2 MG/ML 13:52: PO, ONCE, He rmann Oral 00 if no Solution bowel movement in couple days, # 300 ml, 0 Refill(s), Pharmacy: [id number], 190.5, cm, 10/03/21 6:40:00 [employer], Height, 159.3, kg, 10/03/21 6:40:00 [employer], Weight POLYETHYLEN Yes 17 gm, PO, Memoria E GLYCOL 2-24 Daily, X l 3350 142 13:52: 10 day, # Herm faina MG/ML Oral 00 170 gm, 0 Solution Refill(s), [Miralax] Pharmacy: [id number], 190.5, cm, 10/03/21 6:40:00 [employer], Height, 159.3, kg, 10/03/21 6:40:00 [employer], Weight Ondansetron No 4 mg = 1 Me moria 4 MG Oral 2-24 tab, PO, l Tablet 13:52: Q8H, PRN [Zofran] Nausea/vom iting, X 3 day, # 10 tab, 0 Refill(s), Pharmacy: [id number], 190.5, cm, 10/03/21 6:40:00 [employer], Height, 159.3, kg, 10/03/21 6:40:00 [employer], Weight Acetaminoph Yes 1 tab, PO, Memoria en 325 MG / 2-24 Q4-6H, PRN l Hydrocodone 13:52: Pain Score [place] Bitartrate 00 4-6, X 5 5 MG Oral day, # 30 Tablet tab, 0 [[place] Refill(s), 5/325] other heparin No Notes: Memoria [...] Not Crush) sennosides, No Notes: David katarzyna LONG-TERM 2-22 (Same as: l 23:00: Senokot) Famotidine No Notes: Memor ia 20 MG Oral -22 (Same as: l Tablet 23:00: Pepcid) Hydromorpho No 0.5 mg, Mem oria ne 10-03 Route: l 20:05: IVP, ONCE, Dosing Weight 159.3, kg, Priority: STAT, Start date: 10/03/21 14:05:00 [employer], Stop date: 10/03/21 14:05:00 [employer] metoprolol No Route: IV, M emoria (ANES) 10-03 Drug form: l 19:20: INJ, ONCE, Stop date: 10/03/21 13:20:00 [employer] Oxycodone No 10 mg, Memori a Hydrochlori 10-03 Route: PO, l de 5 MG 19:16: Drug form: Herm faina Oral Tablet 00 TAB, Q4H, Dosing Weight 159.3, kg, PRN Pain Score 7-10, Start date: 10/03/21 13:16:00 [employer], Duration: 30 day, Stop date: 11/02/21 13:15:00 CDT sugammadex No Route: IV, M emoria (ANES) 10-03 Drug form: l 18:37: SOLN, 00 ONCE, Stop date: 10/03/21 12:37:00 [employer] ondansetron No Route: IV, Memoria (ANES) 10-03 Drug form: l 18:22: INJ, ONCE, Stop date: 10/03/21 12:22:00 [employer] Dexamethaso No Notes: David katarzyna ne - [...] not exceed l Hydrocodone 17:50: 4gm/day of [place] Bitartrate 00 acetaminop 10 MG Oral hen. (Same Tablet as: [place] [[place] 325/10) 10325] Dilaudid No Notes: Memoria 2-22 Same as l 17:50: Dilaudid Benadryl No Notes: Memoria 2-22 (Same as: l 17:50: Benadryl) [place] phenol No Notes: Memoria 2-22 Chlorasept l 17:50: ic [place] (Same as: Chlorasept ic, Sore Throat [place]) WASTE: F/P - Black; E - [facility] Bisacodyl No Notes: Memori a 2-22 (Same As: l 17:50: Dulcolax, [place] 00 [place]-Lax) Robaxin No Notes: Memoria 2-22 (Same l 17:50: as:Robaxin ) Melatonin 3 No Notes: David katarzyna MG Extended 2-22 (Same as: l Release 17:50: Melatonin) Herm faina Tablet Tylenol No Notes: Do Memor ia 2-22 not exceed l 17:50: 4 gm/day. [place] 00 (Same as: Tylenol) Reglan No Notes: Memoria 2-22 (Same as: l 17:50: Reglan) Phenergan No Notes: Do Mem oria 2-22 not give l 17:50: IV push. (Same as: Phenergan) Saline No Notes: Memoria Flush 0.9% 2-22 Same as: l 17:50: BD Posiflush Sterile Sodium No 1,000 mL, Memori a Chloride 2-22 Rate: 100 l 0.9% IV 17:50: ml/hr, [place] 1,000 mL 00 Infuse over: 10 hr, Route: IV, Dosing Weight 159.3 kg, Total Volume: 1,000, Start date: 10/03/21 11:50:00 [employer], Duration: 30 day, Stop date: 11/02/21 11:49:00 CDT, BSA: 2.93 m2, 0 Labetalol No 10 mg, 2 David katarzyna 2-22 mL, Route: l 17:50: IVP, Drug form: INJ, Q15Min, Dosing Weight 159.3, kg, PRN Hypertensi on, Start date: 10/03/21 11:50:00 [employer], Duration: 3 doses or times, Stop date: 10/04/21 0:00:00 [employer], 0 lidocaine No Route: IV, Me moria (ANES) 2- Drug form: l 16:45: INJ, ONCE, Stop date: 10/03/21 10:45:00 [employer] rocuronium No Route: IV, M emoria (ANES) 10-03 Drug form: l 16:45: INJ, ONCE, Stop date: 10/03/21 10:45:00 [employer] dexamethaso No Route: IV, Memoria ne (ANES) - Drug form: l 16:45: INJ, ONCE, Stop date: 10/03/21 10:45:00 [employer] phenylephri No Route: IV, Memoria ne (ANES) 10-03 Drug form: l 16:40: INJ, ONCE, Stop date: 10/03/21 10:40:00 [employer] Hydralazine No Notes: David katarzyna 2-22 (Same as: l 16:37: Apresoline ) Push over 5 minutes Labetalol No 10 mg, 2 David katarzyna 2-22 mL, Route: l 16:37: IVP, Drug form: INJ, Q5Min, Dosing Weight 159.3, kg, PRN Elevated BP, Start date: 10/03/21 10:37:00 [employer], Duration: 5 doses or times, Stop date: 10/04/21 0:00:00 [employer], 0 Oxycodone No Notes: Memori a Hydrochlori [...] 16:35: INJ, ONCE, Stop date: 10/03/21 10:35:00 [employer] fentaNYL No Route: IV, Mem oria (ANES) 10-03 Drug form: l 16:35: INJ, ONCE, Stop date: 10/03/21 10:35:00 [employer] midazolam No Route: IV, Me moria (ANES) 10-03 Drug form: l 16:24: SOLN, ONCE, Stop date: 10/03/21 10:24:00 [employer] ceFAZolin No Route: IV, Me moria (ANES) 10-03 Drug form: l 16:24: INJ, ONCE, Stop date: 10/03/21 10:24:00 [employer] levETIRAcet No Route: IV, Memoria am (ANES) 10-03 Drug form: l 100 mg 16:20: INJ, Start date: 10/03/21 10:20:00 [employer], Stop date: 10/03/21 11:20:00 [employer] propofol No Route: IV, Mem oria (ANES) 10 10-03 Drug form: l mg 15:26: INJ, Start date: 10/03/21 9:26:00 [employer], Stop date: 10/03/21 10:26:00 [employer] Isolyte S No Route: IV, Me moria PH 7.4 - Total l (ANES) 1000 14:26: Volume: Her jones mL 00 1,000, Start date: 10/03/21 8:26:00 [employer], Stop date: 10/03/21 9:26:00 [employer] Isolyte S No Notes: Memori a PH 7.4 (Same as: l 1,000 mL 12:35: Isolyte S Herm faina 00 PH7.4, Normosol-R PH 7.4, Plasma-Lyt e A ) Acetaminoph No 1,000 mg, M emoria en 10-03 Route: PO, l 12:35: Drug form: [place] 00 TAB, PRE OP, Dosing Weight 160.3, kg, Priority: NOW, Start date: 10/03/21 6:35:00 [employer], Duration: 1 doses or times NS + KCL No Notes: Memoria 20mEq/L 10-03 PREMIX IV l 1000ml 12:00: - Do Not [place] (Premix) 00 Alter 1,000 mL WASTE: F/P [...] PRN, 0 Memoria 10-02 Refill(s) l 18:02: [place] 00 Sodium 0 No 250 mL, Memoria Chloride 10-02 Rate: To l 0.9% 17:06: prime line [place] (titrate) 00 and flush 250 mL remaining blood products., Dosing Weight 160.3, kg, Route: IV, Total Volume: 250, Start Date: 10/02/21 11:06:00 [employer], Duration: 1 day, Stop date: 10/03/21 11:05:00 [employer], Replace Every: 24 hr, 0 Acetaminoph No [...] pirit one) one) 00:00: - CHI 00 [facility] Kenalog Kenalog 2019- No 40mg Common (Triamcinol (Triamcinol 0-12 S pirit one) one) 00:00: - CHI 00 [facility] Kenalog Kenalog 2019- No 40mg Common (Triamcinol (Triamcinol 0-12 S pirit one) one) 00:00: - CHI 00 [facility] Kenalog Kenalog 2019-08 No 40mg Common (Triamcinol (Triamcinol 0-12 S pirit one) one) 00:00: - CHI 00 [facility] Kenalog Kenalog 2019- No 40mg Common (Triamcinol (Triamcinol 0-12 S pirit one) one) 00:00: - CHI 00 [facility] Amoxicillin Amoxicillin 2019-08 2020- No 1{table BID Amoxicilli -Pot -Pot 0-12 06-02 t} n-Pot Clavulanate Clavulanate 00:00: 00:00 Clavulanat 875-125 MG 875-125 MG 00 :00 e 875-125 MG Promethazin Promethazin 2019-0 2020- No Norah 1 tablet Common e HCl e HCl 4-28 05-03 [place] as needed [facility] 00:00: 00:00 for n/v - CHI 00 :00 [facility] Bupivicaine Bupivicaine 2019-0 No 4mL Common [place]ot 4-06 Spirit 00:00: - CHI 00 [facility] Kenalog Kenalog 2020-0 No 40mg Common (Triamcinol (Triamcinol 4-06 S pirit one) one) 00:00: - CHI 00 [facility] Bupivicaine Bupivicaine 2020-0 No 4mL Common [place] 4-06 [facility] 00:00: - CHI 00 [facility] Kenalog Kenalog 2020-0 No 40mg Common (Triamcinol (Triamcinol 4-06 S pirit one) one) 00:00: - CHI 00 [facility] Bupivicaine Bupivicaine 2020-0 No 4mL Common [place] 4-06 [facility] 00:00: - CHI 00 [facility] Kenalog Kenalog 2020-0 No 40mg Common (Triamcinol (Triamcinol 4-06 S pirit one) one) 00:00: - CHI 00 [facility] Bupivicaine Bupivicaine 2020-0 No 4mL [facility] [place] 4-06 [facility] 00:00: - CHI 00 [facility] Kenalog Kenalog 2020-0 No 40mg Common (Triamcinol (Triamcinol 4-06 S pirit one) one) 00:00: - CHI 00 [facility] Bupivicaine Bupivicaine 2020-0 No 4mL Common [place] 4-06 [facility] 00:00: - CHI 00 [facility] Kenalog Kenalog 2020-0 No 40mg Common (Triamcinol (Triamcinol 4-06 S pirit one) one) 00:00: - CHI 00 [facility] ondansetron 2020-0 Yes [id number] 4mg Take 1 [facility] (ZOFRAN 3-11 tablet by ity of ODT) 4 mg 00:00: mouth [place] disintegrat 00 every 8 Medic al ing tablet (eight) Branch hours as needed for Nausea and Vomiting (N/V). benzonatate 2020-0 Yes [id number] 200mg Take 1 [facility] 200 mg 3-11 capsule by ity of capsule 00:00: mouth 3 [place] 00 (three) Medical times Branch daily as needed for Cough for up to 20 doses. ibuprofen 2020-0 Yes [id number] 600mg Take 1 U nivers 600 mg [...] Pain Score 4-6, Start date: 07/09/18 16:24:00 [employer] Promethazin 2017-08 No Notes: Do M emoria [...] en 09-08 acetaminop l 21:26: hen 4000 [place] 00 mg/day (4 gm/day). (Same as: Tylenol [...] PRN Elevated BP, Start date: 07/09/18 15:26:00 [employer], Duration: 5 doses or times, Stop date: [...] 09-08 Drug form: l 21:19: INJ, ONCE, [place] 00 Stop date: 07/09/18 15:19:00 [employer] ceFAZolin 2017-08 No Route: IV, Me moria (ANES) 09-08 Drug form: l 20:43: INJ, ONCE, [place] 00 Stop date: 07/09/18 14:43:00 [employer] lidocaine 2017-08 No Route: IV, Me moria (ANES) 09-08 Drug form: l 20:43: INJ, ONCE, [place] 00 Stop date: 07/09/18 14:43:00 [employer] propofol 2017-08 No Route: IV, Mem oria (ANES) 09-08 Drug form: l 20:43: INJ, ONCE, [place] 00 Stop date: 07/09/18 14:43:00 [employer] fentaNYL 2017-08 No Route: IV, Mem oria (ANES) 09-08 Drug form: l 20:43: INJ, ONCE, Stop date: 07/09/18 14:43:00 [employer] metoclopram 2017-08 No Route: IV, Memoria debbie (ANES) 09-08 Drug form: l 20:38: INJ, ONCE, Stop date: 07/09/18 14:38:00 [employer] famotidine 2017-08 No Route: IV, M emoria (ANES) 09-08 Drug form: l 20:38: INJ, ONCE, [place] 00 Stop date: 07/09/18 14:38:00 [employer] dexamethaso 2017-08 No Route: IV, Memoria ne (ANES) 09-08 Drug form: l 20:38: INJ, ONCE, [place] 00 Stop date: 07/09/18 14:38:00 [employer] midazolam 2017-08 No Route: IV, Me moria (ANES) 09-08 Drug form: l 20:38: SOLN, [place] 00 ONCE, Stop date: 07/09/18 14:38:00 [employer] Lactated 2017-08 No Route: IV, Mem oria Ringers 09-08 Total l Injection 19:45: Volume: Kelly nn IV (ANES) 00 1,000, 1000 mL Start date: 07/09/18 13:45:00 [employer], Stop date: 07/09/18 14:45:00 [employer] Famotidine 2017-08 No Notes: Memor ia 40 MG Oral 09-08 (Same as: l Tablet 19:37: Pepcid) [place] [Pepcid] 00 Celebrex 2017-08 No 200 mg, Memori a 09-08 Route: PO, l 19:00: Drug form: [place] 00 CAP, ONCALL, Dosing Weight 140.909, kg, Start date: 07/09/18 13:00:00 [employer], Duration: 30 day, Stop date: 08/08/18 12:59:00 [employer] Lidocaine 2017-08 No Notes: Memori a Hydrochlori [...] kg, Priority: STAT, Start date: 07/09/18 12:53:00 [employer], Stop date: 07/09/18 12:53:00 [employer] Tylenol 2017-08 No 1,000 mg, Memor ia 09-08 Route: PO, l 18:20: ONCE, [place] 00 Dosing Weight 140.909, kg, Priority: STAT, Start date: 07/09/18 12:20:00 [employer], Stop date: 07/09/18 12:20:00 [employer] Insulin 2017-08 No Notes: Memoria Lispro 09-08 [...] Lactate date: 0.028 07/09/18 MEQ/ML 12:18:00 Injectable [employer], Solution Duration: 30 day, Stop date: 08/08/18 12:17:00 [employer], 2.75, m2 ceFAZolin + 2017-08 No Notes: David katarzyna sterile 09-08 (Same As: l water 30 mL 12:00: Ancef, Herm faina 00 Kefzol) MEDICATION WASTE Product Size: 1000 mg Product Wasted: ___ mg Lactated 2017-08 No 1,000 mL, David katarzyna Ringers 09-08 Rate: KVO l Injection 12:00: rate, [place] IV 1,000 mL 00 Route: IV, Dosing Weight 140.909 kg, Total Volume: 1,000, Start date: 07/09/18 6:00:00 [employer], Duration: 30 day, Stop date: 08/08/18 5:59:00 [employer], 2.75, m2 Norvasc 2017-08 Yes See Memoria 09-07 Instructio l 18:43: ns, PO [place] 00 Daily, 0 Refill(s) Amlodipine 2017-08 Yes See Memoria 09-07 Instructio l 18:42: ns, PO [place] 00 Daily, 0 Refill(s) amLODIPine amLODIPine 2017-08 [...] 19:40: [facility] l No known 2018-1 No No known Metho di medications 0-14 [...] 19:40: [facility] 04 l No known 2017- No No known Metho di medications 0-14 [...] Notes: Memoria 0-05 (Same l 11:34: as:MORPhin e Sulfate) Dexamethaso 2017-08 No 8 mg, [...] tablet Commo n [place] as needed [facility] Losartan Losartan Yes Norah 1 tablet C ommon Potassium-H Potassium-H [place] [facility] Hydrocodone Hydrocodone Yes Norah 1 tablet Common -Acetaminop -Acetaminop [place] as needed [facility] hen hen [facility] Adderall XR Adderall XR Yes Norah 1 capsule Common [place] in the [facility] morning [facility] Omeprazole Omeprazole Yes Norah 1 capsule Common [place] 30 minutes [facility] before [facility] Dicyclomine Dicyclomine Yes Norah 1 tablet Common HCl HCl [place] [facility] Omeprazole Omeprazole No QD Omeprazole [...] No 1{table Zofran 8 t_as_ne MG eded} No known No Methodi medications [facility] l Immunizations Ordered Immunization Filled Immunization Date Status Commen ts Source Name Name Influenza, 2022-05-19 Completed [facility] injectable, 00:00:00 quadrivalent (afluria, fluzone) Influenza, 2022-05-19 Completed [facility] injectable, 00:00:00 quadrivalent (afluria, fluzone) Influenza, 2022-05-19 Completed [facility] injectable, 00:00:00 [...] [facility] Kenalog Kenalog 2020-05-23 Completed [facility] - (Triamcinolone) (Triamcinolone) 11:35:00 [facility] Kenalog Kenalog 2020-05-23 Completed [facility] - (Triamcinolone) (Triamcinolone) 11:35:00 [facility] Kenalog Kenalog 2020-05-23 Completed [facility] - (Triamcinolone) (Triamcinolone) 11:35:00 [facility] Kenalog Kenalog 2020-05-23 Completed [facility] - (Triamcinolone) (Triamcinolone) 11:35:00 [facility] Kenalog Kenalog 2020-05-23 Completed [facility] - (Triamcinolone) (Triamcinolone) 11:35:00 [facility] Kenalog Kenalog 2020-05-23 Completed [facility] - (Triamcinolone) (Triamcinolone) 11:35:00 [facility] Kenalog Kenalog 2020-05-23 Completed [facility] - (Triamcinolone) (Triamcinolone) 11:35:00 [facility] Bupivicaine [place] Bupivicaine [place] 2019-11-16 Completed [facility] - 11:23:00 [facility] Bupivicaine [place] Bupivicaine [place] 2019-11-16 Completed [facility] - 11:23:00 [facility] Bupivicaine [place] Bupivicaine [place] 2019-11-16 Completed [facility] - 11:23:00 [facility] Bupivicaine [place] Bupivicaine [place] 2019-11-16 Completed [facility] - 11:23:00 [facility] Bupivicaine [place] Bupivicaine [place] 2019-11-16 Completed [facility] - 11:23:00 [facility] Bupivicaine [place] Bupivicaine [place] 2019-11-16 Completed [facility] - 11:23:00 [facility] Bupivicaine [place] Bupivicaine [place] 2019-11-16 Completed [facility] - 11:23:00 [facility] Kenalog Kenalog 2019-11-16 Completed [facility] - (Triamcinolone) (Triamcinolone) 11:22:00 [facility] Kenalog Kenalog 2019-11-16 Completed [facility] - (Triamcinolone) (Triamcinolone) 11:22:00 [facility] Dialloalog Dialloalog 2019-11-16 Completed [facility] - (Triamcinolone) (Triamcinolone) 11:22:00 [facility] 2019-11-16 Completed [facility] - (Triamcinolone) (Triamcinolone) 11:22:00 [facility] 2019-11-16 Completed [facility] - (Triamcinolone) (Triamcinolone) 11:22:00 [facility] 2019-11-16 Completed [facility] - (Triamcinolone) (Triamcinolone) 11:22:00 [facility] 2019-11-16 Completed [facility] - (Triamcinolone) (Triamcinolone) 11:22:00 [facility] Fluzone Quadrivalent 2018-06-03 [facility] 0.5 ML Intramuscular 14:35:00 [facility] Vital Signs Vital Name Observation Time Observation Value Comments Source HEIGHT 2022-11-14 184.2 cm 14:00:00 WEIGHT 2022-11-14 165.518 kg 14:00:00 HEIGHT 2022-11-14 184.2 cm 14:00:00 WEIGHT 2022-11-14 165.518 kg 14:00:00 Body height 2022-09-28 160 cm [facility] 21:52:00 Body weight 2022-09-28 158.759 kg [facility] 21:52:00 BMI 2022-09-28 62.00 kg/m2 [facility] 21:52:00 Body height 2022-09-20 190.5 cm [facility] 14:46:00 Body weight 2022-09-20 158.759 kg [facility] 14:46:00 BMI 2022-09-20 43.75 kg/m2 [facility] 14:46:00 Body height 2022-07-27 190.5 cm [facility] 14:41:00 Body weight 2022-07-27 158.305 kg [facility] 14:41:00 BMI 2022-07-27 43.62 kg/m2 [facility] 14:41:00 height 2022-06-22 72 [in_i] [facility] - 11:20:00 [facility] weight 2022-06-22 343 [lb_av] [facility] - 11:20:00 [facility] temperature 2022-06-22 96.5 [degF] [facility] - 11:20:00 [facility] bmi 2022-06-22 46.51 kg/m2 [facility] - 11:20:00 [facility] oximetry 2022-06-22 97 % [facility] - 11:20:00 [facility] respiratory rate 2022-06-22 18 /min [facility] - 11:20:00 [facility] blood pressure 2022-06-22 141 mm[Hg] [facility] - systolic 11:20:00 [facility] blood pressure 2022-06-22 74 mm[Hg] [facility] - diastolic 11:20:00 [facility] Systolic blood 2022-05-16 110 mm[Hg] [facility] pressure 20:28:00 Diastolic blood 2022-05-16 72 mm[Hg] [facility] pressure 20:28:00 Heart rate 2022-05-16 60 /min [facility] 20:28:00 Body temperature 2022-05-16 36.11 Chrissie [facility] 20:17:00 Body height 2022-05-16 190.5 cm [facility] 20:17:00 Body weight 2022-05-16 158.305 kg [facility] 20:17:00 BMI 2022-05-16 43.62 kg/m2 [facility] 20:17:00 height 2021-04-06 72 [in_i] [facility] - 14:30:00 [facility] weight 2021-04-06 319 [lb_av] [facility] - 14:30:00 [facility] temperature 2021-04-06 98 [degF] [facility] - 14:30:00 [facility] bmi 2021-04-06 43.26 kg/m2 [facility] - 14:30:00 [facility] blood pressure 2021-04-06 121 mm[Hg] [facility] - systolic 14:30:00 [facility] blood pressure 2021-04-06 76 mm[Hg] [facility] - diastolic 14:30:00 [facility] height 2020-07-12 72 [in_i] [facility] - 16:30:00 [facility] weight 2020-07-12 318.3 [lb_av] [facility] - 16:30:00 [facility] temperature 2020-07-12 97.5 [degF] [facility] - 16:30:00 [facility] bmi 2020-07-12 43.16 kg/m2 [facility] - 16:30:00 [facility] oximetry 2020-07-12 97 % [facility] - 16:30:00 [facility] respiratory rate 2020-07-12 18 /min [facility] - 16:30:00 [facility] blood pressure 2020-07-12 129 mm[Hg] [facility] - systolic 16:30:00 [facility] blood pressure 2020-07-12 64 mm[Hg] [facility] - diastolic 16:30:00 [facility] height 2020-05-23 72 [in_i] [facility] - 11:20:00 [facility] weight 2020-05-23 314.4 [lb_av] [facility] - 11:20:00 [facility] temperature 2020-05-23 97.2 [degF] [facility] - 11:20:00 [facility] bmi 2020-05-23 42.64 kg/m2 [facility] - 11:20:00 [facility] oximetry 2020-05-23 98 % [facility] - 11:20:00 [facility] respiratory rate 2020-05-23 18 /min [facility] - 11:20:00 [facility] blood pressure 2020-05-23 140 mm[Hg] [facility] - systolic 11:20:00 [facility] blood pressure 2020-05-23 74 mm[Hg] [facility] - diastolic 11:20:00 [facility] Systolic blood 2022-11-14 149 mm[Hg] [facility] pressure 14:13:00 [facility] Diastolic blood 2022-11-14 93 mm[Hg] [facility] pressure 14:13:00 [facility] Heart rate 2022-11-14 73 /min [facility] 14:13:00 [facility] Body temperature 2022-11-[address] [facility] 14:[facility]:00 [facility] Body height 2022-11-[address] [facility] 14:00:00 [facility] Body weight 2022-11-[address] [facility] 14:00:00 [facility] BMI 2022-11-14 48.81 kg/m2 [facility] 14:00:00 [facility] Heart Rate 2021-10-10 [facility] 14:[facility]15 Systolic (mm Hg) 2021-10-10 [facility] 14:07:42 Diastolic (mm Hg) 2021-10-10 [facility] 14:07:42 Heart Rate 2021-10-10 [facility] 14:07:42 Temperature Oral 2021-10-10 99.2 F [facility] rmann (F) 14:07:27 Heart Rate 2021-10-10 [facility] 10:20:56 Respitory Rate 2021-10-10 [facility] 10:20:56 Systolic (mm Hg) 2021-10-10 [facility] He rmann 10:20:37 Diastolic (mm Hg) 2021-10-10 [facility] H ermann 10:20:37 Temperature Oral 2021-10-10 98.1 F [facility] He rmann (F) 10:19:31 Respitory Rate 2021-10-10 [facility] 05:19:58 Systolic (mm Hg) 2021-10-10 [facility] 05:19:44 Diastolic (mm Hg) 2021-10-10 [facility] H ermann 05:19:44 Temperature Oral 2021-10-10 98.7 F [facility] rmann (F) 05:18:56 Respitory Rate 2021-10-10 [facility] [...] n 09:21:01 Temperature Oral 2021-10-09 98.4 F [facility] Harpreet rmann (F) 09:20:59 Systolic (mm Hg) [...] n 23:44:00 Temperature Oral 2021-10-08 98.6 F [facility] rmann (F) 23:44:00 Heart Rate 2021-10-05 [facility] 13:48:13 Respitory Rate 2021-10-05 [facility] 13:48:13 Systolic (mm Hg) 2021-10-05 [facility] 13:47:41 Diastolic (mm Hg) 2021-10-05 [facility] 13:47:41 Heart Rate 2021-10-05 [facility] 13:47:41 Temperature Oral 2021-10-05 99.2 F [facility] rmann (F) 13:47:17 Heart Rate 2021-10-05 [facility] 09:39:43 Respitory Rate 2021-10-05 [facility] 09:39:43 Systolic (mm Hg) 2021-10-05 [facility] 09:39:35 Diastolic (mm Hg) 2021-10-05 [facility] 09:39:35 Temperature Oral 2021-10-05 98.4 F [facility] rmann (F) 09:38:41 Respitory Rate 2021-10-05 [facility] 06:44:26 Systolic (mm Hg) 2021-10-05 [facility] rmann 06:44:17 Diastolic (mm Hg) 2021-10-05 [facility] H ermann 06:44:17 Temperature Oral 2021-10-05 98.7 F [facility] rmann (F) 06:42:51 Height 2021-10-03 190.5 cm [facility] 12:40:00 Weight 2021-10-03 [facility] 12:40:00 BMI Calculated 2021-10-03 [facility] 12:40:00 Height 2021-10-02 190.5 cm [facility] 16[facility]30:00 Weight 2021-10-02 [facility] 16:30:00 BMI Calculated 2021-10-02 [facility] 16:30:00 Systolic (mm Hg) 2021-05-11 [facility] rmann 13:50:00 Diastolic (mm Hg) 2021-05-11 [place] ermann 13:50:00 Temperature Oral 2021-05-11 98.5 F [facility] rmann (F) 13:50:00 Systolic (mm Hg) 2021-05-11 [facility] rmann 12:22:00 Diastolic (mm Hg) 2021-05-11 [place] ermann 12:22:00 Systolic (mm Hg) 2021-05-11 [facility] rmann 11:21:00 Diastolic (mm Hg) 2021-05-11 [place] ermann 11:21:00 Respitory Rate 2021-05-11 [facility] 11:21:00 Respitory Rate 2021-05-11 [facility] 10:42:00 Respitory Rate 2021-05-11 [facility] 09:02:00 Temperature Oral 2021-05-11 98.4 F [facility] rmann (F) 08:30:00 Heart Rate 2021-05-11 [facility] 06:50:00 Heart Rate 2021-05-11 [facility] 06:18:00 Heart Rate 2021-05-11 [facility] 00:55:00 Temperature Oral 2021-05-11 98.2 F [facility] rmann (F) 00:55:00 BP Systolic 2018-10-02 155 mm[Hg] Location: E; [facility] 15:26:00 Position: Sitting BP Diastolic 2018-10-02 88 mm[Hg] Location: E; [facility] 15:26:00 Position: Sitting Height 2018-10-02 75 [...] [facility] 10:25:00 Systolic (mm Hg) 2018-07-10 [facility] He rmann 00:00:00 Diastolic (mm Hg) 2018-07-10 [place] ermann 00:00:00 Respitory Rate 2018-07-10 [facility] Herm faina 00:00:00 Systolic (mm Hg) 2018-07-09 [facility] He rmann 23:45:00 Diastolic (mm Hg) 2018-07-09 [facility] H ermann 23:45:00 Respitory Rate 2018-07-09 [facility] Herm faina 23:45:00 Systolic (mm Hg) 2018-07-09 [facility] rmann 23:30:00 Diastolic (mm Hg) 2018-07-09 [place] ermann 23:30:00 Respitory Rate 2018-07-09 [facility] BP Systolic 2018-06-03 136 mm[Hg] Location: LUE; [facility] 14:09:00 Position: Sitting BP Diastolic 2018-06-03 75 mm[Hg] Location: LUE; [facility] 14:09:00 Position: Sitting Height 2018-06-03 75 [...] He rmann 11:50:00 Diastolic (mm Hg) 2018-05-16 Magdalene Cameron ermann 11:50:00 Heart Rate 2018-05-16 Magdalene Avitia n 11:50:00 Respitory Rate 2018-05-16 Magdalene Joyner faina 11:50:00 Temperature Oral 2018-05-16 98.8 F Magdalene Mullins rmann (F) 10:56:00 Weight 2018-05-16 Magdalene Avitia n 10:56:00 Procedures Procedure Date / Time Performing Clinician Source Performed REFERRAL- REQUEST/RESPONSE 2021-03-30 05:01:00 Doctor Unassigned , [facility] Myringotomy 2020-10-10 00:00:00 [facility] Her jones [U] XRAY KNEE 4 OR MORE 2018-07-24 00:00:00 [facility] P hys[facility] VWS RIGHT [id number] Emg/Ncv 2018-06-20 00:00:[address] [facility] Sleep Lab - Sleep 2018-06-03 00:00:00 [facility] Study Split Night Ulnar nerve decompression 2015-08-12 00:00:00 Me morial [place] [facility] Extraction of wisdom tooth Memor ial [place] Appendectomy [facility] History of Cubital tunnel [facility] repair History of Wrist surgery [facility] Plan of Care Planned Activity Planned Date Details Comments Source Future Scheduled 2023-11-[address] [facility] Test 00:00:00 [facility] Screening (12+) [code = Tobacco Cessation Counseling and Screening (12+)] Future Scheduled 2022-12-12 COVID-19 VACCINE [facility] Test 13:32:14 (#1) [code = COVID-19 VACCINE (#1)] Future Scheduled 2022-12-12 [facility]ZA [facility]ACCINE [facility] Test 13:32:14 [code = INFLUENZA VACCINE] Future Scheduled 2022-09-18 COVID-19 VACCINE [facility] Test 11:55:25 (#1) [code = COVID-19 VACCINE (#1)] Future Scheduled 2022-09-18 [facility]ACCINE [facility] Test 11:55:25 [code = INFLUENZA VACCINE] Future Scheduled 2022-09-18 COVID-19 VACCINE [facility] Test 11:55:25 (#1) [code = COVID-19 VACCINE (#1)] Future Scheduled 2022-09-18 IN[facility]ZA VACCINE [facility] Test 11:55:25 [code = INFLUENZA VACCINE] Future Scheduled 2022-09-07 COVID-19 VACCINE [facility] Test 19:13:43 (#1) [code = COVID-19 VACCINE (#1)] Future Scheduled 2022-09-07 IN[facility]ZA VACCINE [facility] Test 19:13:43 [code = INFLUENZA VACCINE] Future Scheduled 2022-08-12 DEPRESSION SCREENING [facility] Test 00:00:00 (12+) [code = [facility] DEPRESSION SCREENING (12+)] Future Scheduled 2022-07-28 COVID-19 VACCINE [facility] Test 16:56:35 (#1) [code = COVID-19 VACCINE (#1)] Future Scheduled 2022-07-28 INFLUENZA VACCINE [facility] Test 16:56:35 [code = INFLUENZA VACCINE] Future Scheduled 2022-07-28 COVID-19 VACCINE [facility] Test 16:56:35 (#1) [code = COVID-19 VACCINE (#1)] Future Scheduled 2022-07-28 INFLUENZA VACCINE [facility] Test 16:56:35 [code = INFLUENZA VACCINE] Future Scheduled 2022-04-13 HEPATITIS B VACCINES [facility] Test 21:38:54 (1 of 3 - 3-dose series) [code = HEPATITIS B VACCINES (1 of 3 - 3-dose series)] Future Scheduled 2022-04-13 COVID-19 VACCINE [facility] Test 21:38:54 (#1) [code = COVID-19 VACCINE (#1)] Future Scheduled 2022-04-13 INFLUENZA VACCINE [facility] Test 21:38:54 [code = INFLUENZA VACCINE] Future Scheduled 2022-04-13 HEPATITIS B VACCINES [facility] Test 21:38:54 (1 of 3 - 3-dose series) [code = HEPATITIS B VACCINES (1 of 3 - 3-dose series)] Future Scheduled 2022-04-13 COVID-19 VACCINE [facility] Test 21:38:54 (#1) [code = COVID-19 VACCINE (#1)] Future Scheduled 2022-04-13 IN[facility]ENZA VACCINE [facility] Test 21:38:54 [code = INFLUENZA VACCINE] Future Scheduled 2022-04-13 HEPATITIS B VACCINES [facility] Test 21:38:54 (1 of 3 - 3-dose series) [code = HEPATITIS B VACCINES (1 of 3 - 3-dose series)] Future Scheduled 2022-04-13 [facility] 21:38:54 (#1) [code = COVID-19 VACCINE (#1)] Future Scheduled 2022-04-13 INFLUENZA VACCINE [facility] Test 21:38:54 [code = INFLUENZA VACCINE] Future Scheduled 2022-04-13 HEPATITIS B VACCINES [facility] Test 21:38:54 (1 of 3 - 3-dose series) [code = HEPATITIS B VACCINES (1 of 3 - 3-dose series)] Future Scheduled 2022-04-13 [facility] Test 21:38:54 (#1) [code = COVID-19 VACCINE (#1)] Future Scheduled 2022-04-13 INFLUENZA VACCINE [facility] 21:38:54 [code = INFLUENZA VACCINE] Future Scheduled 2022-04-13 HEPATITIS B VACCINES [facility] Test 21:38:54 (1 of 3 - 3-dose series) [code = HEPATITIS B VACCINES (1 of 3 - 3-dose series)] Future Scheduled 2022-04-13 [facility] Test 21:38:54 (#1) [code = COVID-19 VACCINE (#1)] Future Scheduled 2022-04-13 INFLUENZA VACCINE [facility] Test 21:38:54 [code = INFLUENZA VACCINE] Future Scheduled 2022-04-13 HEPATITIS B VACCINES [facility] Test 21:38:54 (1 of 3 - 3-dose series) [code = HEPATITIS B VACCINES (1 of 3 - 3-dose series)] Future Scheduled 2022-04-13 [facility] Test 21:38:54 (#1) [code = COVID-19 VACCINE (#1)] Future Scheduled 2022-04-13 INFLUENZA VACCINE [facility] Test 21:38:54 [code = INFLUENZA VACCINE] Future Scheduled 2021-07-01 COVID-19 VACCINE ([address] [facility] Test 00:00:00 - Booster for Pfizer [facility] series) [code = COVID-19 VACCINE (3 - Booster for Pfizer series)] Diagnostic Test 2018-06-20 Emg/Ncv [code = [facility] Pending 00:00:00 Emg/Ncv] Diagnostic Test 2018-06-20 Emg/Ncv [code = [facility] Pending 00:00:00 Emg/Ncv] Future Scheduled [address] [facility] Test 00:00:00 (procedure) [code = Medical Center [id number]] Future Scheduled 1999 DTAP/TDAP/TD [facility] Test 00:00:00 VACCINES (1 - Tdap) Medical Center [code = DTAP/TDAP/TD VACCINES (1 - Tdap)] Future Scheduled [address] [facility] Test 00:00:00 SCREENING [code = Medical nter HEPATITIS C SCREENING] Future Scheduled COVID-19 VACCINE (1) [facility] [code = COVID-19 VACCINE (1)] Future Scheduled [facility] screening (procedure) [code = 189002411] Future Scheduled INFLUENZA VACCINE [facility] Test [code = INFLUENZA VACCINE] Encounters Start End Encounter Admission Attending Care Care Encounter Source Date/Time Date/Time Type Type Clinicians Facility Department ID 2022-09-27 Outpatient [facility] [id number] [place] 15:49:39 [id number] [facility] 2022-09-[address] [facility] [id number] [facility] 10:35:01 [facility] [address] [facility] 2022-09-20 Outpatient [facility] [id number] [place] 09:01:19 [id number] [facility] 2022-09-18 Outpatient [facility] [id number] UT 13:05:14 [id number] [facility] 2022-09-04 Outpatient [facility] [id number] UT 09:48:26 [id number] [facility] 2022-09-03 Outpatient [facility] [id number] UT 10:22:47 [id number] [facility] 2022-08-15 Outpatient [facility] [id number] UT 08:54:00 [id number] [facility] 2022-07-30 Outpatient [facility] [id number] UT 09:03:26 [id number] [facility] 2022-07-27 Outpatient [facility] [id number] UT 09:39:00 [id number] [facility] 2022-06-22 Outpatient Vazquez, STLMLC STLMLC [id number] Common 11:03:01 [facility] 2022-06-20 Outpatient [facility] [id number] UT 15:53:00 [id number] [facility] 2022-06-20 Outpatient Vazquez, STLMLC STLMLC [id number] Common 09:33:01 [facility] 2022-06-19 Outpatient [facility] [id number] [place] 15:00:31 [id number] [facility] 2022-06-12 Outpatient [facility] [id number] [place] 09:35:34 [id number] [facility] 2022-05-25 Outpatient [facility] [id number] [place] 13:39:31 [id number] [facility] 2021-10-25 Outpatient MIGUEL ANGEL, [facility] [id number] [facility] 11:23:00 [place] 2021-09-28 Outpatient DAY, NOAH [facility] [id number] [place] 16:10:44 [facility] 2021-09-06 Outpatient Vazquez, STLMLC STLMLC [id number] Common 12:12:10 John 939[address] [facility] 2021-09-06 Outpatient Vazquez, STLMLC STLMLC [id number] Common 12:10:54 John [id number] [facility] 2021-09-06 Outpatient Vazquez, STLMLC STLMLC [id number] Common 12:09:52 John [id number] [facility] 2021-09-06 Outpatient Vazquez, STLMLC STLMLC [id number] Common 11:54:05 John [id number] [facility] 2021-09-06 Outpatient Vazquez, STLMLC STLMLC [id number] Common 11:06:57 John 28922 [facility] 2021-09-06 Outpatient Vazquez, STLMLC STLMLC [id number] Common 11:06:47 John [id number] [facility] 2021-04-18 Outpatient PATKI, [facility] [id number] UT 14:45:53 JUNIOR cameron 2023-01-10 2023-01-10 Outpatient CORCORAN [facility] [id number] UT 13:00:00 13:00:00 Karthik WILHELM 2022-11-14 2022-11-14 Office Adams [facility] [id number] 14:30:00 15:33:44 Visit [facility] 2022-11-14 2022-11-14 Outpatient CAROLYN [facility]AMS [facility] [id number] 13:44:22 15:33:44 [facility] 2022-09-28 2022-09-28 Office Alyse, EUNICE 6400 1.2.840.114 [id number] [place] 15:00:00 16:43:[address] [id number] Health 9.2.7.2.686 [id number] 5 2022-09-26 2022-09-26 Outpatient ALBERTODEANN, [facility] [id number] [place] 13:15:00 13:15:00 [facility] 2022-09-20 2022-09-20 Office EUNICE NOGUEIRA 6400 1.2.840.114 [id number] [place] 08:45:00 08:45:[address] 350.1.13.58 Health 9.2.7.2.686 [id number] 5 2022-08-16 2022-08-16 Outpatient TUCKER, [facility] [id number] UT 14:30:00 14:30:00 ANU [employer] 2022-08-01 2022-08-01 Outpatient TUCKER, [facility] [id number] UT 11:00:00 11:00:00 [facility] 2022-07-27 2022-07-27 Office EUNICE Nogueira 6400 1.2.840.114 [id number] UT 08:30:00 09:48:[address] [id number] Health 9.2.7.2.686 [id number] 5 2022-07-25 2022-07-25 (TEL) STLMLC STLMLC [id number] Co mmon 00:00:00 00:00:00 [facility] 2022-06-22 2022-06-22 (TEL) STLMLC STLMLC [id number] Co mmon 00:00:00 00:00:00 [facility] 2022-06-22 2022-06-22 OFFICE STLMLC STLMLC [id number] Co mmon 00:00:00 00:00:00 VISIT [facility] 4 [facility] 2022-06-20 2022-06-20 Outpatient DAY, NOAH [facility] [id number] [place] 14:00:00 14:00:00 Health 2022-06-13 2022-06-13 Outpatient DAY, NOAH [facility] [id number] [place] 13:15:00 13:15:00 Health 2022-06-06 2022-06-06 (TEL) STLMLC STLMLC [id number] Co mmon 00:00:00 00:00:00 [facility] 2022-06-06 2022-06-06 (TEL) STLMLC STLMLC [id number] Co mmon 00:00:00 00:00:00 [facility] 2022-05-17 2022-05-19 Outpatient E DAY, NOAH [facility] [id number] [facility] 10:13:00 11:40:00 2022-05-16 2022-05-16 Office DAY, NOAH UTP 6400 1.2.840.114 1 [id number] UT 15:45:00 15:45:00 Visit CHRISTINE 350.1.13.58 [facility] 9.2.7.2.686 [id number] 0 2022-05-12 2022-05-12 Emergency E ROBERTS, [facility] [id number] [facility] 03:16:00 21:21:00 SONIA 2022-03-21 2022-03-21 Outpatient DAY, NOAH [facility] [id number] [place] 15:00:00 15:00:00 Health 2022-03-14 2022-03-14 Telephone Day, Noah DAWSON 6400 1.2.840.114 [id number] [place] 00:00:00 00:00:[address] 350.1.13.58 Health 9.2.7.2.686 [id number] 0 2022-03-14 2022-03-14 Telephone Patki, UTP 6400 1.2.840.114 [id number] [place] 00:00:00 00:00:[address] 350.1.13.58 Health 9.2.7.2.686 [id number] 3 2022-03-14 2022-03-14 Telephone Day, Noah UTP 6400 1.2.840.114 [id number] [place] 00:00:00 00:00:[address] 350.1.13.58 Health 9.2.7.2.686 [id number] 0 2022-03-13 2022-03-13 Telephone Day, Noah UTP 6400 1.2.840.114 [id number] [place] 00:00:00 00:00:[address] 350.1.13.58 Health 9.2.7.2.686 [id number] 0 2022-01-01 2022-01-01 Telephone Day, Noah UTP 6400 1.2.840.114 [id number] [place] 00:00:00 00:00:[address] 350.1.13.58 Health 9.2.7.2.686 [id number] 0 2021-12-28 2021-12-28 Telephone Day, Noah UTP 6400 1.2.840.114 [id number] UT 00:00:00 00:00:[address] 350.1.13.58 Health 9.2.7.2.686 [id number] 0 2021-12-06 2021-12-06 Telephone Day, Noah UTP 6400 1.2.840.114 [id number] [place] 00:00:00 00:00:[address] 350.1.13.58 Health 9.2.7.2.686 [id number] 0 2021-11-27 2021-11-27 Telephone Day, Noah UTP 6400 1.2.840.114 [id number] UT 00:00:00 00:00:[address] 350.1.13.58 Health 9.2.7.2.686 [id number] 0 2021-11-01 2021-11-01 Telephone Day, Noah UTP 6400 1.2.840.114 [id number] [place] 00:00:00 00:00:[address] 350.1.13.58 Health 9.2.7.2.686 [id number] 0 2021-10-30 2021-10-30 Telephone Rae Naranjo UTP 1.2.840 .114 [id number] UT 00:00:00 00:00:00 Rae Naranjo 350.1.13.58 Health MEDICAL 9.2.7.2.686 BUILDING [id number] 1 2021-10-27 2021-10-27 Telephone Day, Noah UTP 6410 1.2.840.114 [id number] [place] 00:00:00 00:00:[address] 350.1.13.58 Health 9.2.7.2.686 [id number] 8 2021-10-25 2021-10-26 Outpt Diag nullFlavo [facility] [id number] [facility] 18:11:00 04:59:00 Services r Outpatient [address] [place] [address] 2021-10-24 2021-10-24 Telephone Layne Sánchez UTP 6400 1.2.840.1 14 [id number] UT 00:00:00 00:00:[address]chezN ST 350.1.13.58 Health 9.2.7.2.686 [id number] 3 2021-10-24 2021-10-24 Telephone Day, Noah UTP 6400 1.2.840.114 [id number] [place] 00:00:00 00:00:[address] 350.1.13.58 Health 9.2.7.2.686 [id number] 0 2021-10-20 2021-10-20 Office EUNICE Balderas 1.2.840.114 [id number] [place] 13:30:00 14:18:52 Visit Geronimo MENCHACA 350.1.13.58 H [facility] 9.2.7.2.686 [facility] [id number] 1 2021-10-18 2021-10-19 Outpt Diag nullFlavo [facility] [id number] Memoria 17:43:00 05:59:00 Services r Outpatient 00 l Tree Cedeño 2021-10-18 2021-10-18 Office Day, oNah DAWSON 6400 1.2.840.114 1 [id number] [place] 10:00:00 10:15:[address] [place] [address] 350.1.13.58 Health 9.2.7.2.686 [id number] 0 2021-10-18 2021-10-18 Telephone Day, Noah DAWSON 6400 1.2.840.114 [id number] [place] 00:00:00 00:00:[address] 350.1.13.58 Health 9.2.7.2.686 [id number] 0 2021-10-18 2021-10-18 Telephone Day, Noah UTP 6400 1.2.840.114 [id number] [place] 00:00:00 00:00:[address] 350.1.13.58 Health 9.2.7.2.686 [id number] 0 2021-10-17 2021-10-17 Telephone Day, Noah UTP 6400 1.2.840.114 [id number] [place] 00:00:00 00:00:[address] 350.1.13.58 Health 9.2.7.2.686 [id number] 0 2021-10-13 2021-10-13 Telephone Day, Noah UTP 6400 1.2.840.114 [id number] [place] 00:00:00 00:00:[address] 350.1.13.58 Health 9.2.7.2.686 [id number] 0 2021-10-08 2021-10-10 Inpatient nullFlavo [facility] [id number] Memoria 23:43:00 15:48:00 chace Cedeño 58 l [facility] 2021-10-08 2021-10-10 Inpatient E DAY, NOAH [facility] [id number] [facility] 19:58:00 09:48:00 2021-10-03 2021-10-05 Inpatient [facility] [id number] [facility] 11:15:00 16:21:00 r [place] 05 l [facility] 2021-10-03 2021-10-05 Inpatient DAY, NOAH [facility] [id number] [facility] 05:15:00 10:21:00 2021-10-04 2021-10-04 Telephone Day, Noah UTP 6400 1.2.840.114 [id number] [place] 00:00:00 00:00:[address] 350.1.13.58 Health 9.2.7.2.686 [id number] 0 2021-09-28 2021-09-28 Telephone Day, Noah UTP 6400 1.2.840.114 [id number] [place] 00:00:00 00:00:[address] 350.1.13.58 Health 9.2.7.2.686 [id number] 0 2021-09-28 2021-09-28 Telephone Dorothea Delgadillo UTP 6400 1.2.84 0.114 [id number] [place] 00:00:00 00:00:[address] 350.1.13.58 Health 9.2.7.2.686 [id number] 3 2021-09-22 2021-09-22 Telephone Day, Noah UTP 6400 1.2.840.114 [id number] UT 00:00:00 00:00:[address] 350.1.13.58 Health 9.2.7.2.686 [id number] 0 2021-09-20 2021-09-20 Telephone Day, Noah UTP 6400 1.2.840.114 [id number] UT 00:00:00 00:00:[address] 350.1.13.58 Health 9.2.7.2.686 [id number] 7 2021-09-18 2021-09-18 Telephone Amelia Cameron UTP 6400 1.2.840.11 4 [id number] [place] 00:00:00 00:00:[address] 350.1.13.58 Health 9.2.7.2.686 [id number] 5 2021-09-07 2021-09-07 Office Patkenji, UTP 6400 1.2.840.114 [id number] [place] 13:30:00 14:35:[address] 350.1.13.58 Health 9.2.7.2.686 [id number] 3 2021-09-07 2021-09-07 Telephone Stcay, UTP 6400 1.2.840.114 134 [id number] [place] 00:00:00 00:00:[address] 350.1.13.58 Health 9.2.7.2.686 [id number] 3 2021-09-05 2021-09-05 Telephone Stacy, UTP 6400 1.2.840.114 134 [id number] [place] 00:00:00 00:00:[address] 350.1.13.58 Health 9.2.7.2.686 [id number] 3 2021-09-03 2021-09-03 Telephone Stacy, UTP 6400 1.2.840.114 [id number] [place] 00:00:00 00:00:[address] 350.1.13.58 Health 9.2.7.2.686 [id number] 3 2021-08-02 2021-08-02 Telephone Stacy, UTP 6400 1.2.840.114 [id number] [place] 00:00:00 00:00:[address] 350.1.13.58 Health 9.2.7.2.686 [id number] 3 2021-05-18 2021-05-18 Orders Brii Howard UTP 6400 1.2.840.114 [id number] [place] 00:00:00 00:00:[address] 350.1.13.58 Health 9.2.7.2.686 [id number] 3 2021-05-18 2021-05-18 Orders Stacy, EUNICE 6400 1.2.840.114 [id number] [place] 00:00:00 00:00:[address] 350.1.13.58 Health 9.2.7.2.686 [id number] 3 2021-05-15 2021-05-15 Telephone Stacy, EUNICE 6400 1.2.840.114 [id number] [place] 00:00:00 00:00:[address] 350.1.13.58 Health 9.2.7.2.686 [id number] 3 2021-05-11 2021-05-11 [facility] [id number] [facility] 00:42:19 14:08:[address] 2021-05-11 2021-05-11 (TEL) [facility] [id number] Co mmon 00:00:00 00:00:00 [facility] 2021-05-09 2021-05-09 Telephone Stacy, EUNICE 6400 1.2.840.114 [id number] [place] 00:00:00 00:00:[address] 350.1.13.58 Health 9.2.7.2.686 [id number] 3 2021-05-08 2021-05-08 Telephone Stacy, EUNICE 6400 1.2.840.114 [id number] UT 00:00:00 00:00:[address] 350.1.13.58 Health 9.2.7.2.686 [id number] 3 2021-05-08 2021-05-08 Telephone Stacy, EUNICE 6400 1.2.840.114 127 [id number] [place] 00:00:00 00:00:[address] 350.1.13.58 Health 9.2.7.2.686 [id number] 3 2021-05-08 2021-05-08 Telephone EUNICE Kumar 6400 1.2.840.114 127 [id number] [place] 00:00:00 00:00:[address] 350.1.13.58 Health 9.2.7.2.686 [id number] 3 2021-05-03 2021-05-03 Office Stacy, EUNICE 6400 1.2.840.114 [id number] UT 13:38:06 14:42:46 Visit Junior JOYCE 350.1.13.58 Health 9.2.7.2.686 [id number] 3 2021-05-03 2021-05-03 Office Stacy, EUNICE 6400 1.2.840.114 [id number] UT 13:38:06 14:42:46 Visit Junior JOYCE 350.1.13.58 Health 9.2.7.2.686 [id number] 3 2021-04-18 2021-04-18 Office Stacy, EUNICE 6400 1.2.840.114 [id number] [place] 13:09:45 14:44:[address] 350.1.13.58 Health 9.2.7.2.686 [id number] 3 2021-04-18 2021-04-18 Office EUNICE Kumar 6400 1.2.840.114 [id number] [place] 13:09:45 14:44:[address] 350.1.13.58 Health 9.2.7.2.686 [id number] 3 2021-04-06 2021-04-06 OFFICE STLMLC STLMLC [id number] Co mmon 00:00:00 00:00:00 VISIT EST Spir it PT LEVEL 3 - [facility] 2021-04-06 2021-04-06 (TEL) STLMLC STLMLC [id number] Co mmon 00:00:00 00:00:00 Spirit [facility] 2021-03-31 2021-03-31 (TEL) STLMLC STLMLC [id number] Co mmon 00:00:00 00:00:00 [facility] 2021-03-30 2021-03-30 Orders Doctor AICHA 1.2.840.114 [id number] 00:00:00 00:00:00 Only Unassigned, ABDULKADIR 350.1.13.10 [facility] 4.2.7.2.686 [id number] 009 2021-03-30 2021-03-30 Orders Doctor AICHA 1.2.840.114 [id number] Univers 00:00:00 00:00:00 Only Unassigned, ABDULKADIR 350.1.13.10 [facility] 4.2.7.2.686 Norberto as [id number] [place] [address] Branch 2021-03-21 2021-03-21 Ancillary 1, Gal [facility]ERSIT 1.2.840.114 [id number] 14:21:34 15:15:15 Visit Audio Sound Y 350.1.13.10 [address] 4.2.7.2.686 BANK [id number] BLDG. 141 2021-03-21 2021-03-21 Outpatient R [facility] [id number] Univers 13:45:00 13:45:00 FABY [facility] 2021-01-17 2021-01-17 Emergency X BARBARA [facility] ERT [id number] Univers 19:28:00 19:28:00 LAURENCE [facility] 2020-11-21 2020-11-21 Emergency X [facility] ERT [id number] Univers 15:51:00 15:51:00 ity [facility] 2020-07-20 2020-07-20 (TEL) STLMLC STLMLC [id number] Co mmon 00:00:00 00:00:00 [facility] 2020-07-12 2020-07-12 OFFICE STLMLC STLMLC [id number] Co mmon 00:00:00 00:00:00 VISIT EST Spir it PT LEVEL 3 [facility] 2020-05-23 2020-05-23 OFFICE STLMLC STLMLC [id number] Co mmon 00:00:00 00:00:00 VISIT EST Spir it PT LEVEL 3 [facility] 2020-02-24 2020-02-24 [facility] [id number] Common 14:42:00 14:42:[address] [facility] 2020-02-22 2020-02-22 [facility] [id number] Common 13:51:00 13:51:[address] [facility] 2019-12-10 2019-12-10 [facility] [id number] Common 15:39:00 15:39:[address] [facility] 2019-12-08 2019-12-08 [facility] [id number] Common 13:40:00 13:40:[address] [facility] 2019-12-07 2019-12-07 [facility] [id number] Common 12:05:00 12:05:[address] [facility] 2019-11-16 2019-11-16 [facility] [id number] Common 11:00:00 11:00:00 t Bone Bone and Spiri t and Joint [facility] - [facility] 2019-10-21 2019-10-21 Emergency X NEREIDA, K [facility] ERT [id number] Univers 11:24:16 14:51:00 [facility]y of [facility] 2019-09-29 2019-09-29 [facility] [id number] Common 09:21:00 09:21:00 t Bone Bone and Spiri t and Joint Joint - [facility] 2019-09-21 2019-09-21 [facility] [id number] Common 14:00:00 14:00:00 t Bone Bone and Spiri t and Joint Joint - [facility] 2019-03-13 2019-03-13 EUNICE Diaz [id number] [facility] 09:00:00 09:00:00 t; Kriss RODRIGUEZ. Ph savannah Roberto M.D. 2018-10-02 2018-10-02 [facility] [id number] [place] 15:00:00 15:00:00 t; Asher JONES i, M.D. ans POURAN, M.D. 2018-09-25 2018-09-25 [facility] [id number] [place] 10:30:00 10:30:00 t; BRANT CEJA, SHANE Health and Valery GUO, SHANE [facility] 2018-09-22 2018-09-22 [facility] [id number] [place] 15:30:00 15:30:00 t; Asher JONES i, M.D. ans POURAN, M.D. 2018-08-22 2018-08-22 [facility] [id number] [place] 09:30:00 09:30:00 t; Lesa BRYANT savannah Rios M.D. 2018-07-29 2018-07-29 [facility] [id number] [place] 14:30:00 14:30:00 t; Lesa BRYANT savannah Rios M.D. 2018-07-25 2018-07-25 [facility] [id number] [place] 10:30:00 10:30:00 t; [facility]ITT [facility] 2018-07-22 2018-07-22 [facility] [id number] [place] 11:15:00 11:15:00 t; Lesa BRYANT [facility] TAMMY, Orthopedics savannah BRYANT M.D. 2018-07-15 2018-07-15 [facility] [id number] [place] 10:30:00 10:30:00 t; Lesa BRYANT [facility] Physici TAMMY, Orthopedics savannah BRYANT M.D. 2018-07-09 2018-07-10 [facility] [id number] [facility] 18:05:00 00:00:00 Surgery r [place] 03 l [place] Kelly 2018-07-09 2018-07-09 [facility] [id number] [place] 13:00:00 13:00:00 t; Lesa BRYANT savannah Rios M.D. 2018-06-30 2018-06-30 [facility] [id number] [place] 10:15:00 10:15:00 t; Lesa BRYANT [facility] Valery MUNOZ, Orthopedics savannah BRYANT M.D. 2018-06-24 2018-06-24 Outpatient nullFlavo [facility] [id number] [place] 00:15:00 05:59:00 r [place] 02 l [place] Kelly 2018-06-20 2018-06-20 [facility] [id number] [place] 13:40:00 13:40:00 t; SHANE MONROE [facility] hygeovanni ROTH, Orthopedics a boyd MONROE NP 2018-06-19 2018-06-19 [facility] [id number] [place] 08:15:00 08:15:00 t; SERJIO HUERTA D.O. Physici KERRY, ans D.OClemente 2018-06-17 2018-06-17 [facility] [id number] [place] 15:45:00 15:45:00 t; Lesa BRYANT [facility] Valery MUNOZ, Orthopedics savannah BRYANT M.D. 2018-06-03 2018-06-03 [facility] [id number] [place] 13:45:00 13:45:00 t; SERJIO HUERTA D.O. [facility] savannah Vora.OClemente 2018-05-16 2018-05-16 Emergency nullFlavo [facility] [id number] [place] 10:52:00 13:34:00 r [place] 01 l [place] Kelly Results Test Description Test Time Test Comments Results Result Comments Source CHEM PANEL 2021-10-09 21:33:00 Test Item Value Reference Range Interpretation Comme nts Glucose Lvl (test code = Glucose Lvl) 114 70-99 [place] [id number] 21:33:00 Test Item Value Reference Range Interpretation Comments BUN (test code = BUN) 14 7-22 [place] 059082-02-28 21:33:00 Test Item Value Reference Range Interpretation Comments Creatinine Lvl (test code = Creatinine 1.36 0.50-1.40 Lvl) [place] 059082-02-28 21:33:00 Test Item Value Reference Range Interpretation Comments Sodium Lvl (test code = Sodium Lvl) 139 135-145 [place] 059082-02-28 21:33:00 Test Item Value Reference Range Interpretation Comments Potassium Lvl (test code = Potassium 4.6 3.5-5.1 Lvl) [place] 059082-02-28 21:33:00 Test Item Value Reference Range Interpretation Comments Chloride Lvl (test code = Chloride Lvl) 104 95-109 [place] 059082-02-28 21:33:00 Test Item Value Reference Range Interpretation Comments CO2 (test code = CO2) 29 24-32 [place] 059082-02-28 21:33:00 Test Item Value Reference Range Interpretation Comments Calcium Lvl (test code = Calcium Lvl) 9.3 8.5-10.5 [place] 059082-02-28 21:33:00 Test Item Value Reference Range Interpretation Comments AGAP (test code = AGAP) 10.6 10.0-20.0 [place] 059082-02-28 21:33:00 Test Item Value Reference Range Interpretation Comments eGFR (test code = eGFR) 64 [place] [address]-02-28 21:33:00 Test Item Value Reference Range Interpretation Comments WBC (test code = WBC) 5.9 3.7-10.4 [place] [address]-02-28 21:33:00 Test Item Value Reference Range Interpretation Comments RBC (test code = RBC) 4.85 4.70-6.10 [place] [address]-02-28 21:33:00 Test Item Value Reference Range Interpretation Comments Hgb (test code = Hgb) 13.7 14.0-18.0 [place] [address]-02-28 21:33:00 Test Item Value Reference Range Interpretation Comments Hct (test code = Hct) 41.5 42.0-54.0 [facility]BdihrirSMZAPYWOMF8496-23-02 21:33:00 Test Item Value Reference Range Interpretation Comments MCV (test code = MCV) 85.4 80.0-94.0 [place] 621922-02-28 21:33:00 Test Item Value Reference Range Interpretation Comments MCH (test code = MCH) 28.2 pg 27.0-31.0 [facility] CenterBpgbpfnGOCXDMUUDO7338-15-47 21:33:00 Test Item Value Reference Range Interpretation Comments MCHC (test code = MCHC) 33.0 32.0-36.0 [facility] CenterGqtteglZAAJTQVTIY8079-21-36 21:33:00 Test Item Value Reference Range Interpretation Comments RDW (test code = RDW) 14.0 11.5-14.5 [facility] CenterYabrfurKKWTFIKBRZ5591-43-81 21:33:00 Test Item Value Reference Range Interpretation Comments Platelet (test code = Platelet) 186 133-450 [facility] CenterXnyvrurUKTBEAPOPK2008-57-83 21:33:00 Test Item Value Reference Range Interpretation Comments MPV (test code = MPV) 9.1 7.4-10.4 [place] 621922-02-28 21:33:00 Test Item Value Reference Range Interpretation Comments PT (test code = PT) 12.4 s 12.0-14.7 [place] 621922-02-28 21:33:00 Test Item Value Reference Range Interpretation Comments INR (test code = INR) 0.93 1 0.85-1.17 [facility] CenterCbauluiZLYSVPMBAW2408-62-30 21:33:00 Test Item Value Reference Range Interpretation Comments PTT (test code = PTT) 27.8 s 22.9-35.8 [place] 621922-02-28 21:33:00 Test Item Value Reference Range Interpretation Comments Segs (test code = Segs) 73.9 45.0-75.0 [place] 621922-02-28 21:33:00 Test Item Value Reference Range Interpretation Comments Lymphocytes (test code = Lymphocytes) 18.2 20.0-40.0 [facility] CenterZdvraamDZEQZPJFAE2196-97-57 21:33:00 Test Item Value Reference Range Interpretation Comments Monocytes (test code = Monocytes) 3.4 2.0-12.0 [address]02-28 21:33:00 Test Item Value Reference Range Interpretation Comments Eosinophils (test code = 4.2 See_Comment [A utomated message] The Eosinophils) system which ge nerated this result tra nsmitted reference range : <=4.0. The reference r caleb was not used to int erpret this result as normal/abnormal . [place] 621922-02-28 21:33:00 Test Item Value Reference Range Interpretation Comments Basophils (test code = 0.3 See_Comment [Aut omated message] The Basophils) system which ge nerated this result tra nsmitted reference range : <=1.0. The reference r caleb was not used to int erpret this result as normal/abnormal . [place] 621922-02-28 21:33:00 Test Item Value Reference Range Interpretation Comments Neutrophils # (test code = Neutrophils 4.4 1.5-8.1 #) [place] 621922-02-28 21:33:00 Test Item Value Reference Range Interpretation Comments Lymphocytes # (test code = Lymphocytes 1.1 1.0-5.5 #) [place] 621922-02-28 21:33:00 Test Item Value Reference Range Interpretation Comments Monocytes # (test code 0.2 See_Comment [Aut omated message] The = Monocytes #) system which generated this result tra nsmitted reference range : <=0.8. The reference r caleb was not used to int erpret this result as normal/abnormal . [facility] CenterWjvlchjQQXZTCOQVC6459-49-36 21:33:00 Test Item Value Reference Range Interpretation Comments Eosinophils # (test code 0.2 See_Comment [A utomated message] The = Eosinophils #) system whic h generated this result tra nsmitted reference range : <=0.5. The reference r caleb was not used to int erpret this result as normal/abnormal . [facility] XGLEJE3827-21-07 20:31:00 Test Item Value Reference Range Interpretation Comments Glucose CSF (test code = Glucose CSF) 77 45-80 [place] 750042-02-28 20:31:00 Test Item Value Reference Range Interpretation Comments Protein CSF (test code = Protein CSF) 33 15-45 [place] 750042-02-28 20:31:00 Test Item Value Reference Range Interpretation Comments Tube Num CSF (test xxxxxxx (10/09/21 2:31 code = Tube Num CSF) PM) [facility]2022-02-28 20:31:00 Test Item Value Reference Range Interpretation Comments Color CSF (test code Colorless (10/09/21 2:31 = Color CSF) PM) [facility]2022-02-28 20:31:00 Test Item Value Reference Range Interpretation Comments Clarity CSF (test code = Clear (10/09/21 2:31 Clarity CSF) PM) [facility]2022-02-28 20:31:00 Test Item Value Reference Range Interpretation Comments Supernat CSF (test Colorless (10/09/21 2:31 code = Supernat CSF) PM) [facility]2022-02-28 20:31:00 Test Item Value Reference Range Interpretation Comments Nucleated Cells CSF 9 See_Comment [Automa leydi message] The (test code = Nucleated syste m which generated Cells CSF) this result tra nsmitted reference range : <=53. The reference r caleb was not used to int erpret this result as normal/abnormal . [facility]2022-02-28 20:31:00 Test Item Value Reference Range Interpretation Comments RBC CSF (test code = 280 See_Comment [Autom ated message] The RBC CSF) system which ge nerated this result transmit leydi reference range : <=03. The reference range was not used to interpr et this result as krishna l/abnormal. [facility]2022-02-28 20:31:00 Test Item Value Reference Range Interpretation Comments Neutrophils CSF (test 64 See_Comment [Auto mated message] The code = Neutrophils CSF) syst em which generated this result tra nsmitted reference range : <=6. The reference r caleb was not used to int erpret this result as normal/abnormal . [facility]2022-02-28 20:31:00 Test Item Value Reference Range Interpretation Comments Lymph CSF (test code = Lymph CSF) 30 40-80 [facility]2022-02-28 20:31:00 Test Item Value Reference Range Interpretation Comments Monocyte CSF (test code = Monocyte CSF) 6 15-45 [facility]: Fuqdavhcv5759-96-89 20:31:00 Test Item Value Reference Range Interpretation Comments Culture: Anaerobic No Anaerobes Isolated (test code = Culture: After 3 Days Anaerobic) [facility] CenterGram Stain Nhsews6394-51-26 20:31:00 Test Item Value Reference Range Interpretation Comments Gram Stain Report Few Wbc'S; No Organisms (test code = Gram Seen Stain Report) [facility] Center[facility]: CSF w/Gram Ehqfo8166-20-89 20:31:00 Test Item Value Reference Range Interpretation Comments Culture: CSF w/Gram 72 Hour Report - No Stain (test code = Growth, Holding Culture: CSF w/Gram Stain) [facility]2022-02-28 08:57:00 Test Item Value Reference Range Interpretation Comments Glucose Lvl (test code = Glucose Lvl) 109 70-[address] [facility]2022-02-28 08:57:00 Test Item Value Reference Range Interpretation Comments BUN (test code = BUN) 17 -[address] [facility]2022-02-28 08:57:00 Test Item Value Reference Range Interpretation Comments Creatinine Lvl (test code = Creatinine 1.28 0.50-1.40 Lvl) [facility]2022-02-28 08:57:00 Test Item Value Reference Range Interpretation Comments Sodium Lvl (test code = Sodium Lvl) 140 135-[address] [facility]2022-02-28 08:57:00 Test Item Value Reference Range Interpretation Comments Potassium Lvl (test code = Potassium 3.9 3.5-5.1 Lvl) [facility]2022-02-28 08:57:00 Test Item Value Reference Range Interpretation Comments Chloride Lvl (test code = Chloride Lvl) 108 95-[address] [facility]2022-02-28 08:57:00 Test Item Value Reference Range Interpretation Comments CO2 (test code = CO2) 27 24-[address] [facility]2022-02-28 08:57:00 Test Item Value Reference Range Interpretation Comments Calcium Lvl (test code = Calcium Lvl) 9.5 8.5-10.[address] [facility]2022-02-28 08:57:00 Test Item Value Reference Range Interpretation Comments AGAP (test code = AGAP) 8.9 10.0-20.0 [place] 059082-02-28 08:57:00 Test Item Value Reference Range Interpretation Comments eGFR (test code = eGFR) 69 [place] 621922-02-28 08:57:00 Test Item Value Reference Range Interpretation Comments WBC (test code = WBC) 8.5 3.7-10.4 [place] 621922-02-28 08:57:00 Test Item Value Reference Range Interpretation Comments RBC (test code = RBC) 4.69 4.70-6.10 [place] [address]-02-28 08:57:00 Test Item Value Reference Range Interpretation Comments Hgb (test code = Hgb) 13.3 14.0-18.0 [place] [address]-02-28 08:57:00 Test Item Value Reference Range Interpretation Comments Hct (test code = Hct) 40.4 42.0-54.0 [place] [address]-02-28 08:57:00 Test Item Value Reference Range Interpretation Comments MCV (test code = MCV) 86.1 80.0-94.0 [place] [address]-02-28 08:57:00 Test Item Value Reference Range Interpretation Comments MCH (test code = MCH) 28.3 pg 27.0-31.0 [place] 621922-02-28 08:57:00 Test Item Value Reference Range Interpretation Comments MCHC (test code = MCHC) 32.9 32.0-36.0 [place] 621922-02-28 08:57:00 Test Item Value Reference Range Interpretation Comments RDW (test code = RDW) 14.1 11.5-14.5 [place] 621922-02-28 08:57:00 Test Item Value Reference Range Interpretation Comments Platelet (test code = Platelet) 192 133-450 [place] 621922-02-28 08:57:00 Test Item Value Reference Range Interpretation Comments MPV (test code = MPV) 9.2 7.4-10.4 [place] [address]-02-28 08:57:00 Test Item Value Reference Range Interpretation Comments R-time (test code = R-time) 6.0 min 5.0-10.0 [place] [address]-02-28 08:57:00 Test Item Value Reference Range Interpretation Comments K-time (test code = K-time) 1.4 min 1.0-3.0 [place] [address]-02-28 08:57:00 Test Item Value Reference Range Interpretation Comments Angle (test code = Angle) 69.7 degrees 53.0-72.0 [place] 621922-02-28 08:57:00 Test Item Value Reference Range Interpretation Comments Max Amp (test code = Max Amp) 66.3 mm 50.0-70.0 [place] 621922-02-28 08:57:00 Test Item Value Reference Range Interpretation Comments G-value (test code = G-value) 9.8 4.5-11.0 [place] 621922-02-28 08:57:00 Test Item Value Reference Range Interpretation Comments Ly30 (test code = 0.6 See_Comment [Automate d message] The Ly30) system which ge nerated this result transmit leydi reference range : <=7.5. The reference range was not used to interpr et this result as krishna l/abnormal. [place] 621922-02-28 08:57:00 Test Item Value Reference Range Interpretation Comments Coag Index (test code 1.2 1 See_Comment [Auto mated message] The = Coag Index) system which g enerated this result transmit leydi reference range : <=3.0. The reference range was not used to interpr et this result as krishna l/abnormal. [place] 621922-02-28 08:57:00 Test Item Value Reference Range Interpretation Comments TEG Data (test code = See Note (10/09/21 2:57 TEG Data) AM) [place] 621922-02-28 08:57:00 Test Item Value Reference Range Interpretation Comments PT (test code = PT) 12.1 s 12.0-14.7 [place] [address]-02-28 08:57:00 Test Item Value Reference Range Interpretation Comments INR (test code = INR) 0.90 1 0.85-1.17 [place] 621922-02-28 08:57:00 Test Item Value Reference Range Interpretation Comments PTT (test code = PTT) 27.6 s 22.9-35.8 [place] 621922-02-28 08:57:00 Test Item Value Reference Range Interpretation Comments Segs (test code = Segs) 52.0 45.0-75.0 [place] [address]-02-28 08:57:00 Test Item Value Reference Range Interpretation Comments Lymphocytes (test code = Lymphocytes) 33.8 20.0-40.0 [place] 621922-02-28 08:57:00 Test Item Value Reference Range Interpretation Comments Monocytes (test code = Monocytes) 8.0 2.0-12.0 [facility] CenterXipuagqUIFLQPDWRX7203-03-56 08:57:00 Test Item Value Reference Range Interpretation Comments Eosinophils (test code = 5.8 See_Comment [A utomated message] The Eosinophils) system which ge nerated this result tra nsmitted reference range : <=4.0. The reference r caleb was not used to int erpret this result as normal/abnormal . [place] [address]-02-28 08:57:00 Test Item Value Reference Range Interpretation Comments Basophils (test code = 0.4 See_Comment [Aut omated message] The Basophils) system which ge nerated this result tra nsmitted reference range : <=1.0. The reference r caleb was not used to int erpret this result as normal/abnormal . [facility] CenterKycykqsVYJAMIUEFO6116-60-16 08:57:00 Test Item Value Reference Range Interpretation Comments Neutrophils # (test code = Neutrophils 4.4 1.5-8.1 #) [place] 621922-02-28 08:57:00 Test Item Value Reference Range Interpretation Comments Lymphocytes # (test code = Lymphocytes 2.9 1.0-5.5 #) [place] 621922-02-28 08:57:00 Test Item Value Reference Range Interpretation Comments Monocytes # (test code 0.7 See_Comment [Aut omated message] The = Monocytes #) system which generated this result tra nsmitted reference range : <=0.8. The reference r caleb was not used to int erpret this result as normal/abnormal . [place] 621922-02-28 08:57:00 Test Item Value Reference Range Interpretation Comments Eosinophils # (test code 0.5 See_Comment [A utomated message] The = Eosinophils #) system whic h generated this result tra nsmitted reference range : <=0.5. The reference r caleb was not used to int erpret this result as normal/abnormal . [place] 621922-02-28 08:57:00 Test Item Value Reference Range Interpretation Comments TEG Interp (test Thrombelastograph results code = TEG are within reference ranges. Interp) Note that TEG does not show effect of NSAIDs or P2Y12 inhibitors. CPT:[address] [facility]2022-02-28 02:07:26 Test Item Value Reference Range Interpretation Comments Glucose Lvl (test code = Glucose Lvl) 95 70-99 [place] 059082-02-28 02:07:26 Test Item Value Reference Range Interpretation Comments BUN (test code = BUN) 13 7-22 [place] 059082-02-28 02:07:26 Test Item Value Reference Range Interpretation Comments Creatinine Lvl (test code = Creatinine 1.24 0.50-1.40 Lvl) [place] 059082-02-28 02:07:26 Test Item Value Reference Range Interpretation Comments Sodium Lvl (test code = Sodium Lvl) 140 135-145 [place] 059082-02-28 02:07:26 Test Item Value Reference Range Interpretation Comments Potassium Lvl (test code = Potassium 3.7 3.5-5.1 Lvl) [place] 059082-02-28 02:07:26 Test Item Value Reference Range Interpretation Comments Chloride Lvl (test code = Chloride Lvl) 106 95-109 [place] 059082-02-28 02:07:26 Test Item Value Reference Range Interpretation Comments CO2 (test code = CO2) 30 24-32 [place] 059082-02-28 02:07:26 Test Item Value Reference Range Interpretation Comments Calcium Lvl (test code = Calcium Lvl) 9.5 8.5-10.5 [place] 059082-02-28 02:07:26 Test Item Value Reference Range Interpretation Comments AGAP (test code = AGAP) 7.7 10.0-20.0 [place] 059082-02-28 02:07:26 Test Item Value Reference Range Interpretation Comments eGFR (test code = eGFR) 72 [place] 621922-02-28 02:07:26 Test Item Value Reference Range Interpretation Comments WBC X 10x3 (test code = WBC X 10x3) 7.4 3.7-10.4 [place] 621922-02-28 02:07:26 Test Item Value Reference Range Interpretation Comments RBC X 10x6 (test code = RBC X 10x6) 5.06 4.70-6.10 [facility] CenterIefhyzaMPJOEIVNAE2913-41-17 02:07:26 Test Item Value Reference Range Interpretation Comments Hgb (test code = Hgb) 14.0 14.0-18.0 [place] 621922-02-28 02:07:26 Test Item Value Reference Range Interpretation Comments Hct (test code = Hct) 43.5 42.0-54.0 [place] 621922-02-28 02:07:26 Test Item Value Reference Range Interpretation Comments MCV (test code = MCV) 85.9 80.0-94.0 [place] 621922-02-28 02:07:26 Test Item Value Reference Range Interpretation Comments MCH (test code = MCH) 27.7 pg 27.0-31.0 [place] 621922-02-28 02:07:26 Test Item Value Reference Range Interpretation Comments MCHC (test code = MCHC) 32.3 32.0-36.0 [facility] CenterBzsioyfISNVHCSJVV3945-66-05 02:07:26 Test Item Value Reference Range Interpretation Comments RDW (test code = RDW) 13.9 11.5-14.5 [facility] CenterRlbhqsaTKKDLRSAGQ9323-02-72 02:07:26 Test Item Value Reference Range Interpretation Comments Platelet (test code = Platelet) 192 133-450 [facility] CenterYleczuwKOPIFEGVFF3704-32-27 02:07:26 Test Item Value Reference Range Interpretation Comments MPV (test code = MPV) 9.1 7.4-10.4 [place] 621922-02-28 02:07:26 Test Item Value Reference Range Interpretation Comments ACT (TEG) Rapid (test code = ACT (TEG) 128 s 86-118 Rapid) [place] 621922-02-28 02:07:26 Test Item Value Reference Range Interpretation Comments Split Point Rapid (test code = Split 0.7 min Point Rapid) [place] 621922-02-28 02:07:26 Test Item Value Reference Range Interpretation Comments R-time Rapid (test code = R-time 0.8 min 0.4-0.7 Rapid) [place] 621922-02-28 02:07:26 Test Item Value Reference Range Interpretation Comments K-time Rapid (test code = K-time 1.1 min 0.6-2.3 Rapid) [place] 621922-02-28 02:07:26 Test Item Value Reference Range Interpretation Comments Angle Rapid (test code = Angle 76 degrees 64-80 Rapid) [place] [address]-02-28 02:07:26 Test Item Value Reference Range Interpretation Comments Max Amplitude Rapid (test code = Max 71 mm 52-71 Amplitude Rapid) [place] [address]-02-28 02:07:26 Test Item Value Reference Range Interpretation Comments G-value Rapid (test code = G-value 12.1 5.0-11.6 Rapid) [place] [address]-02-28 02:07:26 Test Item Value Reference Range Interpretation Comments Estimated % Lysis Rapid 0.8 See_Comment [Au tomated message] The (test code = Estimated syste m which generated % Lysis Rapid) this result t ransmitted reference range : <=7.5. The reference r caleb was not used to int erpret this result as normal/abnormal . [place] 621922-02-28 02:07:26 Test Item Value Reference Range Interpretation Comments PT (test code = PT) 12.5 s 12.0-14.7 [place] [address]-02-28 02:07:26 Test Item Value Reference Range Interpretation Comments INR (test code = INR) 0.94 1 0.85-1.17 [place] [address]-02-28 02:07:26 Test Item Value Reference Range Interpretation Comments PTT (test code = PTT) 29.6 s 22.9-35.8 [place] [address]-02-28 02:07:26 Test Item Value Reference Range Interpretation Comments Segs (test code = Segs) 57.2 45.0-75.0 [place] [address]-02-28 02:07:26 Test Item Value Reference Range Interpretation Comments Lymphocytes (test code = Lymphocytes) 30.9 20.0-40.0 [place] [address]-02-28 02:07:26 Test Item Value Reference Range Interpretation Comments Monocytes (test code = Monocytes) 5.6 2.0-12.0 [place] [address]-02-28 02:07:26 Test Item Value Reference Range Interpretation Comments Eosinophils (test code = 5.6 See_Comment [A utomated message] The Eosinophils) system which ge nerated this result tra nsmitted reference range : <=4.0. The reference r caleb was not used to int erpret this result as normal/abnormal . [facility] CenterQxvazquUGJDMCCXGY0391-64-28 02:07:26 Test Item Value Reference Range Interpretation Comments Basophils (test code = 0.7 See_Comment [Aut omated message] The Basophils) system which ge nerated this result tra nsmitted reference range : <=1.0. The reference r caleb was not used to int erpret this result as normal/abnormal . [facility] CenterUlwzuldQYVHUSFRQF0289-34-71 02:07:26 Test Item Value Reference Range Interpretation Comments Neutrophils # (test code = Neutrophils 4.3 1.5-8.1 #) [facility] CenterQjifuxxSCXPGJCUWF6256-04-69 02:07:26 Test Item Value Reference Range Interpretation Comments Lymphocytes # (test code = Lymphocytes 2.3 1.0-5.5 #) [facility] CenterKftlznrAKNASIVVHC5547-83-11 02:07:26 Test Item Value Reference Range Interpretation Comments Monocytes # (test code 0.4 See_Comment [Aut omated message] The = Monocytes #) system which generated this result tra nsmitted reference range : <=0.8. The reference r caleb was not used to int erpret this result as normal/abnormal . [facility] CenterVjeizpcGFWWIWTXBY7838-95-20 02:07:26 Test Item Value Reference Range Interpretation Comments Eosinophils # (test code 0.4 See_Comment [A utomated message] The = Eosinophils #) system whic h generated this result tra nsmitted reference range : <=0.5. The reference r caleb was not used to int erpret this result as normal/abnormal . [id number] 02:07:26 Test Item Value Reference Range Interpretation Comments Coronavirus (COVID-19) Not Detected (10/08/21 LIZBETH (test code = 8:07 PM) Coronavirus (COVID-19) LIZBETH) [employer] [id number] 01:55:00 Test Item Value Reference Range Interpretation Comments ABO/Rh (test code = ABO/Rh) O POS [facility] [employer] [id number] 01:55:00 Test Item Value Reference Range Interpretation Comments Antibody Scrn (test Negative (10/08/21 7:55 code = Antibody Scrn) PM) [facility]2022-02-22 19:46:00 Test Item Value Reference Range Interpretation Comments Glucose Lvl (test code = Glucose Lvl) 133 70-[address] [facility]2022-02-22 19:46:00 Test Item Value Reference Range Interpretation Comments BUN (test code = BUN) 14 03-[address] [facility]2022-02-22 19:46:00 Test Item Value Reference Range Interpretation Comments Creatinine Lvl (test code = Creatinine 1.22 0.50-1.40 Lvl) [facility]2022-02-22 19:46:00 Test Item Value Reference Range Interpretation Comments Sodium Lvl (test code = Sodium Lvl) 138 135-[address] [facility]2022-02-22 19:46:00 Test Item Value Reference Range Interpretation Comments Potassium Lvl (test code = Potassium 4.1 3.5-5.1 Lvl) [facility]2022-02-22 19:46:00 Test Item Value Reference Range Interpretation Comments Chloride Lvl (test code = Chloride Lvl) 108 95-[address] [facility]2022-02-22 19:46:00 Test Item Value Reference Range Interpretation Comments CO2 (test code = CO2) 26 -[address] [facility]2022-02-22 19:46:00 Test Item Value Reference Range Interpretation Comments Calcium Lvl (test code = Calcium Lvl) 8.6 8.5-10.5 [place] 059082-02-22 19:46:00 Test Item Value Reference Range Interpretation Comments AGAP (test code = AGAP) 8.1 10.0-20.[address] [facility]2022-02-22 19:46:00 Test Item Value Reference Range Interpretation Comments eGFR (test code = eGFR) 73 [facility]OlxveosRLKYPWLGVB0576-[facility] 19:46:00 Test Item Value Reference Range Interpretation Comments WBC (test code = WBC) 6.2 3.7-10.4 [place] 621922-02-22 19:46:00 Test Item Value Reference Range Interpretation Comments RBC (test code = RBC) 4.91 4.70-6.10 [facility] CenterNrpqsjsZXSPJKABYG0865-53-62 19:46:00 Test Item Value Reference Range Interpretation Comments Hgb (test code = Hgb) 13.7 14.0-18.0 [facility] CenterCxncpytEGWMZBAFSB5179-50-54 19:46:00 Test Item Value Reference Range Interpretation Comments Hct (test code = Hct) 42.1 42.0-54.0 [facility] CenterBsacsclMPCPMRJUZT4467-59-91 19:46:00 Test Item Value Reference Range Interpretation Comments MCV (test code = MCV) 85.8 80.0-94.0 [place] 621922-02-22 19:46:00 Test Item Value Reference Range Interpretation Comments MCH (test code = MCH) 27.9 pg 27.0-31.0 [facility] CenterQumaxirKTMOMTTWLS6409-35-77 19:46:00 Test Item Value Reference Range Interpretation Comments MCHC (test code = MCHC) 32.6 32.0-36.0 [facility] CenterAxixioeNANTPFOBCG7237-31-12 19:46:00 Test Item Value Reference Range Interpretation Comments RDW (test code = RDW) 14.3 11.5-14.5 [facility] CenterUeisjjrLZVWJNTQOF8917-75-54 19:46:00 Test Item Value Reference Range Interpretation Comments Platelet (test code = Platelet) 153 133-450 [facility] CenterFxgyfueQATCYEPNWS5406-01-97 19:46:00 Test Item Value Reference Range Interpretation Comments MPV (test code = MPV) 9.5 7.4-10.4 [facility] CenterQgvpsnsFTXQKAKQRO1485-20-51 19:46:00 Test Item Value Reference Range Interpretation Comments PT (test code = PT) 12.2 s 12.0-14.7 [place] 621922-02-22 19:46:00 Test Item Value Reference Range Interpretation Comments INR (test code = INR) 0.91 1 0.85-1.17 [place] 621922-02-22 19:46:00 Test Item Value Reference Range Interpretation Comments PTT (test code = PTT) 27.1 s 22.9-35.8 [place] 621922-02-22 19:46:00 Test Item Value Reference Range Interpretation Comments Plt Morph (test code = Normal (10/03/21 1:46 Plt Morph) PM) [place] [address]-02-22 19:46:00 Test Item Value Reference Range Interpretation Comments Segs (test code = Segs) 83.7 45.0-75.0 [place] 621922-02-22 19:46:00 Test Item Value Reference Range Interpretation Comments Lymphocytes (test code = Lymphocytes) 12.3 20.0-40.0 [place] [address]-02-22 19:46:00 Test Item Value Reference Range Interpretation Comments Monocytes (test code = Monocytes) 1.6 2.0-12.0 [place] [address]-02-22 19:46:00 Test Item Value Reference Range Interpretation Comments Eosinophils (test code = 2.0 See_Comment [A utomated message] The Eosinophils) system which ge nerated this result tra nsmitted reference range : <=4.0. The reference r caleb was not used to int erpret this result as normal/abnormal . [address]02-22 19:46:00 Test Item Value Reference Range Interpretation Comments Basophils (test code = 0.4 See_Comment [Aut omated message] The Basophils) system which ge nerated this result tra nsmitted reference range : <=1.0. The reference r caleb was not used to int erpret this result as normal/abnormal . [place] 621922-02-22 19:46:00 Test Item Value Reference Range Interpretation Comments Neutrophils # (test code = Neutrophils 5.2 1.5-8.1 #) [place] 621922-02-22 19:46:00 Test Item Value Reference Range Interpretation Comments Lymphocytes # (test code = Lymphocytes 0.8 1.0-5.5 #) [place] 621922-02-22 19:46:00 Test Item Value Reference Range Interpretation Comments Monocytes # (test code 0.1 See_Comment [Aut omated message] The = Monocytes #) system which generated this result tra nsmitted reference range : <=0.8. The reference r caleb was not used to int erpret this result as normal/abnormal . [place] [address]-02-22 19:46:00 Test Item Value Reference Range Interpretation Comments Eosinophils # (test code 0.1 See_Comment [A utomated message] The = Eosinophils #) system whic h generated this result tra nsmitted reference range : <=0.5. The reference r caleb was not used to int erpret this result as normal/abnormal . [facility] [id number] 17:31:00 Test Item Value Reference Range Interpretation Comments Hgb A1C (test code = Hgb A1C) 5.7 [facility] [place] [id number] 17:31:00 Test Item Value Reference Range Interpretation Comments ABO/Rh (test code = ABO/Rh) O POS [facility] [place] [id number] 17:31:00 Test Item Value Reference Range Interpretation Comments Antibody Scrn (test Negative (10/02/21 code = Antibody Scrn) 11:31 AM) [facility] [employer] [id number] 17:31:00 Test Item Value Reference Range Interpretation Comments Glucose Lvl (test code = Glucose Lvl) 92 70-99 [facility] [employer] [id number] 17:31:00 Test Item Value Reference Range Interpretation Comments BUN (test code = BUN) 17 - [facility] Falls[facility] [id number] 17:31:00 Test Item Value Reference Range Interpretation Comments Creatinine Lvl (test code = Creatinine 1.21 0.50-1.40 Lvl) [facility] [employer] [id number] 17:31:00 Test Item Value Reference Range Interpretation Comments Sodium Lvl (test code = Sodium Lvl) 140 135-145 [facility] [employer] [id number] 17:31:00 Test Item Value Reference Range Interpretation Comments Potassium Lvl (test code = Potassium 4.2 3.5-5.1 Lvl) [facility] [id number] 17:31:00 Test Item Value Reference Range Interpretation Comments Chloride Lvl (test code = Chloride Lvl) 108 95-109 [facility] [employer] [id number] 17:31:00 Test Item Value Reference Range Interpretation Comments CO2 (test code = CO2) 24-32 [facility] [employer] [id number] 17:31:00 Test Item Value Reference Range Interpretation Comments Calcium Lvl (test code = Calcium Lvl) 9.4 8.5-10.5 [facility] [employer] [id number] 17:31:00 Test Item Value Reference Range Interpretation Comments AGAP (test code = AGAP) 10.2 10.0-20.[address] [facility]2022-02-21 17:31:00 Test Item Value Reference Range Interpretation Comments eGFR (test code = eGFR) 74 [facility] CenterDrcxyhzCBRNSFZUCL5866-48-76 17:31:00 Test Item Value Reference Range Interpretation Comments PTT (test code = PTT) 28.1 s 22.9-35.8 [place] 621922-02-21 17:31:00 Test Item Value Reference Range Interpretation Comments PT (test code = PT) 11.8 s 12.0-14.7 [place] 621922-02-21 17:31:00 Test Item Value Reference Range Interpretation Comments INR (test code = INR) 0.87 1 0.85-1.17 [place] 621922-02-21 17:31:00 Test Item Value Reference Range Interpretation Comments WBC (test code = WBC) 5.4 3.7-10.4 [place] 621922-02-21 17:31:00 Test Item Value Reference Range Interpretation Comments RBC (test code = RBC) 4.90 4.70-6.10 [place] 621922-02-21 17:31:00 Test Item Value Reference Range Interpretation Comments Hgb (test code = Hgb) 13.7 14.0-18.0 [place] 621922-02-21 17:31:00 Test Item Value Reference Range Interpretation Comments Hct (test code = Hct) 42.0 42.0-54.0 [place] 621922-02-21 17:31:00 Test Item Value Reference Range Interpretation Comments MCV (test code = MCV) 85.6 80.0-94.0 [place] 621922-02-21 17:31:00 Test Item Value Reference Range Interpretation Comments MCH (test code = MCH) 27.9 pg 27.0-31.0 [place] 621922-02-21 17:31:00 Test Item Value Reference Range Interpretation Comments MCHC (test code = MCHC) 32.6 32.0-36.0 [place] 621922-02-21 17:31:00 Test Item Value Reference Range Interpretation Comments RDW (test code = RDW) 14.1 11.5-14.5 [place] [address]-02-21 17:31:00 Test Item Value Reference Range Interpretation Comments Platelet (test code = Platelet) 173 133-450 [place] 621922-02-21 17:31:00 Test Item Value Reference Range Interpretation Comments MPV (test code = MPV) 10.1 7.4-10.4 [place] 621922-02-21 17:31:00 Test Item Value Reference Range Interpretation Comments Segs (test code = Segs) 54.1 45.0-75.0 [place] 621922-02-21 17:31:00 Test Item Value Reference Range Interpretation Comments Lymphocytes (test code = Lymphocytes) 30.9 20.0-40.0 [place] [address]-02-21 17:31:00 Test Item Value Reference Range Interpretation Comments Monocytes (test code = Monocytes) 6.7 2.0-12.0 [place] [address]-02-21 17:31:00 Test Item Value Reference Range Interpretation Comments Eosinophils (test code = 7.7 See_Comment [A utomated message] The Eosinophils) system which ge nerated this result tra nsmitted reference range : <=4.0. The reference r caleb was not used to int erpret this result as normal/abnormal . [place] 621922-02-21 17:31:00 Test Item Value Reference Range Interpretation Comments Basophils (test code = 0.6 See_Comment [Aut omated message] The Basophils) system which ge nerated this result tra nsmitted reference range : <=1.0. The reference r caleb was not used to int erpret this result as normal/abnormal . [place] 621922-02-21 17:31:00 Test Item Value Reference Range Interpretation Comments Neutrophils # (test code = Neutrophils 2.9 1.5-8.1 #) [place] 621922-02-21 17:31:00 Test Item Value Reference Range Interpretation Comments Lymphocytes # (test code = Lymphocytes 1.7 1.0-5.5 #) [place] 621922-02-21 17:31:00 Test Item Value Reference Range Interpretation Comments Monocytes # (test code 0.4 See_Comment [Aut omated message] The = Monocytes #) system which generated this result tra nsmitted reference range : <=0.8. The reference r caleb was not used to int erpret this result as normal/abnormal . [place] 621922-02-21 17:31:00 Test Item Value Reference Range Interpretation Comments Eosinophils # (test code 0.4 See_Comment [A utomated message] The = Eosinophils #) system whic h generated this result tra nsmitted reference range : <=0.5. The reference r caleb was not used to int erpret this result as normal/abnormal . [place] 787202-02-21 17:31:00 Test Item Value Reference Range Interpretation Comments Coronavirus (COVID-19) Not Detected (10/02/21 LIZBETH (test code = 11:31 AM) Coronavirus (COVID-19) LIZBETH) [place] 621921-09-30 07:37:00 Test Item Value Reference Range Interpretation Comments Sed Rate (test code = 2 See_Comment [Auto mated message] The Sed Rate) system which ge nerated this result transmit leydi reference range : <=15. The reference range was not used to interpr et this result as krishna l/abnormal. [place] 787201-09-30 07:37:00 Test Item Value Reference Range Interpretation Comments C-REACTIVE PROTEIN (test code = 8.4 C-REACTIVE PROTEIN) [place] 059081-09-30 01:10:00 Test Item Value Reference Range Interpretation Comments Glucose Lvl (test code = Glucose Lvl) 115 70-99 [place] 059081-09-30 01:10:00 Test Item Value Reference Range Interpretation Comments BUN (test code = BUN) 13 7-22 [place] 059081-09-30 01:10:00 Test Item Value Reference Range Interpretation Comments Creatinine Lvl (test code = Creatinine 1.21 0.50-1.40 Lvl) [place] 059081-09-30 01:10:00 Test Item Value Reference Range Interpretation Comments Sodium Lvl (test code = Sodium Lvl) 141 135-145 [place] 059081-09-30 01:10:00 Test Item Value Reference Range Interpretation Comments Potassium Lvl (test code = Potassium 3.8 3.5-5.1 Lvl) [place] 059081-09-30 01:10:00 Test Item Value Reference Range Interpretation Comments Chloride Lvl (test code = Chloride Lvl) 110 95-[address] [facility]2021-09-30 01:10:00 Test Item Value Reference Range Interpretation Comments CO2 (test code = CO2) 25 24-32 [place] 059081-09-30 01:10:00 Test Item Value Reference Range Interpretation Comments Calcium Lvl (test code = Calcium Lvl) 9.1 8.5-10.5 [place] 059081-09-30 01:10:00 Test Item Value Reference Range Interpretation Comments AGAP (test code = AGAP) 9.8 10.0-20.[address] [facility]2021-09-30 01:10:00 Test Item Value Reference Range Interpretation Comments eGFR (test code = eGFR) 74 [facility] CenterFdcuwskBBOTPUOLQS4744-93-10 01:10:00 Test Item Value Reference Range Interpretation Comments WBC X 10x3 (test code = WBC X 10x3) 5.9 3.7-10.4 [place] 621921-09-30 01:10:00 Test Item Value Reference Range Interpretation Comments RBC X 10x6 (test code = RBC X 10x6) 4.92 4.70-6.10 [place] 621921-09-30 01:10:00 Test Item Value Reference Range Interpretation Comments Hgb (test code = Hgb) 13.8 14.0-18.0 [place] 621921-09-30 01:10:00 Test Item Value Reference Range Interpretation Comments Hct (test code = Hct) 41.8 42.0-54.0 [place] 621921-09-30 01:10:00 Test Item Value Reference Range Interpretation Comments MCV (test code = MCV) 84.9 80.0-94.0 [place] 621921-09-30 01:10:00 Test Item Value Reference Range Interpretation Comments MCH (test code = MCH) 28.0 pg 27.0-31.0 [place] 621921-09-30 01:10:00 Test Item Value Reference Range Interpretation Comments MCHC (test code = MCHC) 33.0 32.0-36.0 [place] 621921-09-30 01:10:00 Test Item Value Reference Range Interpretation Comments RDW (test code = RDW) 14.0 11.5-14.5 [place] 621921-09-30 01:10:00 Test Item Value Reference Range Interpretation Comments Platelet (test code = Platelet) 171 133-450 [place] 621921-09-30 01:10:00 Test Item Value Reference Range Interpretation Comments MPV (test code = MPV) 8.8 7.4-10.4 [place] 621921-09-30 01:10:00 Test Item Value Reference Range Interpretation Comments Segs (test code = Segs) 42.2 45.0-75.0 [place] 621921-09-30 01:10:00 Test Item Value Reference Range Interpretation Comments Lymphocytes (test code = Lymphocytes) 37.9 20.0-40.0 [place] 621921-09-30 01:10:00 Test Item Value Reference Range Interpretation Comments Monocytes (test code = Monocytes) 7.0 2.0-12.0 [place] 621921-09-30 01:10:00 Test Item Value Reference Range Interpretation Comments Eosinophils (test code = 11.6 See_Comment [A utomated message] The Eosinophils) system which ge nerated this result tra nsmitted reference range : <=4.0. The reference r caleb was not used to int erpret this result as normal/abnormal . [facility] CenterYcrczlaWFGHNMZHAL1601-07-25 01:10:00 Test Item Value Reference Range Interpretation Comments Basophils (test code = 1.3 See_Comment [Aut omated message] The Basophils) system which ge nerated this result tra nsmitted reference range : <=1.0. The reference r caleb was not used to int erpret this result as normal/abnormal . [facility] CenterLepptpmOMLLNXDPDS9889-83-79 01:10:00 Test Item Value Reference Range Interpretation Comments Neutrophils # (test code = Neutrophils 2.5 1.5-8.1 #) [place] 621921-09-30 01:10:00 Test Item Value Reference Range Interpretation Comments Lymphocytes # (test code = Lymphocytes 2.2 1.0-5.5 #) [place] 621921-09-30 01:10:00 Test Item Value Reference Range Interpretation Comments Monocytes # (test code 0.4 See_Comment [Aut omated message] The = Monocytes #) system which generated this result tra nsmitted reference range : <=0.8. The reference r caleb was not used to int erpret this result as normal/abnormal . [facility] CenterHxqnbofQIHMBJVUUP1830-99-19 01:10:00 Test Item Value Reference Range Interpretation Comments Eosinophils # (test code 0.7 See_Comment [A utomated message] The = Eosinophils #) system whic h generated this result tra nsmitted reference range : <=0.5. The reference r caleb was not used to int erpret this result as normal/abnormal . [facility] CenterPydnsdnNBPULPEJTM2605-62-19 01:10:00 Test Item Value Reference Range Interpretation Comments Basophils # (test code 0.1 See_Comment [Aut omated message] The = Basophils #) system which generated this result tra nsmitted reference range : <=0.2. The reference r caleb was not used to int erpret this result as normal/abnormal . [facility]2018-11-27 18:20:00 Test Item Value Reference Range Interpretation Comments eGFR (test code = eGFR) [address] [facility]2018-11-27 18:20:00 Test Item Value Reference Range Interpretation Comments AGAP (test code = AGAP) 4.2 10.0-20.[address] [facility]2018-11-27 18:20:00 Test Item Value Reference Range Interpretation Comments Calcium Lvl (test code = Calcium Lvl) 8.6 8.5-10.[address] [facility]2018-11-27 18:20:00 Test Item Value Reference Range Interpretation Comments CO2 (test code = CO2) 30 24-[address] [facility]2018-11-27 18:20:00 Test Item Value Reference Range Interpretation Comments Chloride Lvl (test code = Chloride Lvl) 109 95-[address] [facility]2018-11-27 18:20:00 Test Item Value Reference Range Interpretation Comments Potassium Lvl (test code = Potassium 4.2 3.5-5.1 Lvl) [facility]2018-11-27 18:20:00 Test Item Value Reference Range Interpretation Comments Sodium Lvl (test code = Sodium Lvl) 139 135-[address] [facility]2018-11-27 18:20:00 Test Item Value Reference Range Interpretation Comments Glucose Lvl (test code = Glucose Lvl) 111 70-99 [facility] [id number] 18:20:00 Test Item Value Reference Range Interpretation Comments BUN (test code = BUN) 18 7-[address] [facility]2018-11-27 18:20:00 Test Item Value Reference Range Interpretation Comments Creatinine Lvl (test code = Creatinine 1.18 0.50-1.40 Lvl) [facility][U] XRAY ELBOW 2 VWS RIGHT [id number] 15:57:00Images acquired, not reported on this accession number.[employer] [facility][U] XRAY WRIST MIN 3 VWS RIGHT [id number] 15:57:00Images acquired, not reported on this accession number.[employer] [facility]
[2022-12-12] MEDS ORDERED: KETOROLAC 30 MG/ML INJ ONE (15:01)
[2022-12-12] MEDS ORDERED: ONDANSETRON 4 MG/2 ML VIAL ONE (15:01)
[2022-12-12] MEDS ORDERED: FAMOTIDINE 20 MG/2 ML VIAL IV ONE (15:02)
[2022-12-12] MEDS ORDERED: NA CHLORIDE 0.9% 1,000 ML ONE (15:02)
[2022-12-12 15:21] LABS: Absolute Lymphocytes (CBC) 1.7 K/uL (0.7-4.9); Hematocrit 44.2 % (39.6-49.0); Lymphocytes % 21.8 % (15.3-44.8); MCV 84.3 fL (80-100); MPV 8.7 fL (7.6-11.3); RBC Red Blood Cell Count 5.25 M/uL (4.33-5.43)
[2022-12-12 15:40] LABS: Albumin 3.7 g/dL (3.4-5.0); Bilirubin Total 0.9 mg/dL (0.2-1.0); Potassium 3.6 mEq/L (3.5-5.1); Protein, Total 7.7 g/dL (6.4-8.2)
--- NOTE | 2022-12-12 16:15 | ER ---
Nurse's Notes [facility] Name: Terry Akins Sr Age: 42 yrs Sex: Male : 1980 Arrival Date: 12/12/2022 Time: 13:27 Bed 8 Private MD: Diagnosis: Nausea with vomiting, unspecified;Diarrhea, unspecified Presentation: 12/12 13:50 Chief complaint: Patient states: abd cramping, headache, nausea that began this aa5 morning. Pt also reports vomiting and diarrhea. Coronavirus screen: vomiting. Ebola Screen: Patient denies travel to an Ebola-affected area in the 21 days before illness onset. Initial Sepsis Screen: Does the patient meet any 2 criteria? No. Patient's initial sepsis screen is negative. Does the patient have a suspected source of infection? No. Patient's initial sepsis screen is negative. Risk Assessment: Do you want to hurt yourself or someone else? Patient reports no desire to harm self or others. Onset of symptoms was December 12, 2022. 13:50 Acuity: SARITHA 3 aa5 13:50 Method Of Arrival: Wheelchair aa5 Historical: - Allergies: 13:51 No Known Allergies; aa5 - PMHx: 13:51 Hypertensive disorder; Migraine; aa5 - PSHx: 13:51 Appendectomy; carpal tunnel right; hernia; left hand tendonitis; Nerve transplantion; aa5 shunt; - Immunization history:: Adult Immunizations unknown. - Social history:: Smoking status: Patient denies any tobacco usage or history of. Screenin:22 [facility] ED Fall Risk Assessment (Adult) History of falling in the last 3 months, mb9 including since admission No falls in past 3 months (0 pts) Confusion or Disorientation No (0 pts) Intoxicated or Sedated No (0 pts) Impaired Gait No (0 pts) Mobility Assist Device Used No (0 pt) Altered Elimination No (0 pt) Score/Fall Risk Level 0 - 2 = Low Risk Oriented to surroundings, Maintained a safe environment, Educated pt \T\ family on fall prevention, incl call for assistance when getting out of bed. Abuse screen: Denies threats or abuse. Nutritional screening: No deficits noted. Tuberculosis screening: No symptoms or risk factors identified. Assessment: 15:21 General: Appears uncomfortable. Pain: Complains of pain in abdomen Pain does not mb9 radiate. Pain currently is 8 out of 10 on a pain scale. Quality of pain is described as throbbing, Pain began suddenly. Neuro: Level of Consciousness is awake, alert, obeys commands, Oriented to person, place, time, situation, Appropriate for age. Respiratory: Airway is patent Respiratory effort is even, unlabored, Respiratory pattern is regular, symmetrical. GI: Abdomen is obese, Reports diarrhea, nausea, vomiting. Derm: Skin is pink, warm \T\ dry. Musculoskeletal: Range of motion: intact in all extremities. 16:13 Reassessment: Patient states feeling better. Patient states symptoms have improved. mb9 Vital Signs: 13:50 BP 169 / 106; Pulse 84; Resp 18 S; Temp 97.5(TE); Pulse Ox 100% on R/A; Weight 158.76 aa5 kg (R); Height 6 ft. 3 in. (R); 16:13 BP 147 / 80; Pulse 78; Resp 18; Pulse Ox 100% ; mb9 13:50 Body Mass Index 43.75 (158.76 kg, 190.5 cm) aa5 ED Course: 13:28 Patient arrived in ED. am2 13:50 Arm band placed on. aa5 13:51 Triage completed. aa5 13:56 Rain Stevens [facility]-C [facility]. kb 13:56 Talon Whitt MD is Attending Physician. kb 14:53 Ghislaine Arredondo, BRYN is Primary Nurse. mb9 15:15 Inserted saline lock: 22 gauge in right wrist, using aseptic technique. mb9 15:16 CBC with Diff Sent. mb9 15:16 CMP Sent. mb9 15:16 Lipase Sent. mb9 15:21 Placed in gown. Bed in low position. Call light in reach. Side rails up X 1. Client mb9 placed on continuous cardiac and pulse oximetry monitoring. NIBP monitoring applied. 15:22 No provider procedures requiring assistance completed. mb9 16:26 IV discontinued, intact, bleeding controlled, No redness/swelling at site. Pressure mb9 dressing applied. Administered Medications: 15:05 Drug: NS 0.9% IV 1000 ml Route: IV; Rate: 1 bolus; Site: right wrist; mb9 15:05 Drug: Ondansetron IVP 4 mg Route: IVP; Site: right wrist; mb9 15:08 Drug: Famotidine IVP 20 mg Route: IVP; Site: right wrist; mb9 15:17 Drug: TORadol - Ketorolac IVP 15 mg Route: IVP; Site: right wrist; mb9 Medication: 15:22 VIS not applicable for this client. mb9 Outcome: 16:14 Discharge ordered by MD. jimenez 16:26 Discharged to home ambulatory. mb9 16:26 Condition: stable 16:26 Discharge instructions given to patient, Instructed on discharge instructions, follow up and referral plans. Demonstrated understanding of instructions, follow-up care, medications, Prescriptions given X 2. 16:46 Patient left the ED. Signatures: Rain Stevens, DEREK-C SENIOR BUSINESS MANAGER-Rain Roy RN RN aa5 Natasha Holm RN RN Lisa Edmonds Mary Beth RN RN mb9 Corrections: (The following items were deleted from the chart) 13:53 13:50 Pulse 84bpm; Resp 18bpm; Spontaneous; Pulse Ox 100% RA; Temp 97.5F Temporal; aa5 158.76 kg Reported; Height 6 ft. 3 in. Reported; BMI: 43.7; aa5
--- NOTE | 2022-12-12 16:15 | EDPHYS ---
Physician Documentation [facility] Name: Terry Akins Sr Age: 42 yrs Sex: Male : 1980 Arrival Date: 12/12/2022 Time: 13:27 Bed 8 Private MD: ED Physician Talon Whitt HPI: 12/12 16:42 This 42 yrs old Black Male presents to ER via Wheelchair with complaints of kb Nausea/Vomiting/Diarrhea, Headache, Chest Pressure, Epigastric Pain. 16:42 The patient presents to the emergency department with nausea, vomiting, diarrhea. kb Onset: The symptoms/episode began/occurred last night. Possible causes: bad food exposure. The symptoms are aggravated by nothing. The symptoms are alleviated by nothing. Associated signs and symptoms: Pertinent positives: diarrhea, nausea, vomiting, headache. Severity of symptoms: At their worst the symptoms were moderate in the emergency department the symptoms are unchanged. The patient has not experienced similar symptoms in the past. The patient has not recently seen a physician. Pt reports he ate some tunisian food last night and started vomiting about an hour later. Then started having diarrhea as well. States he hasn't been able to tolerate anything by mouth since then. Historical: - Allergies: 13:51 No Known Allergies; aa5 - PMHx: 13:51 Hypertensive disorder; Migraine; aa5 - PSHx: 13:51 Appendectomy; carpal tunnel right; hernia; left hand tendonitis; Nerve transplantion; aa5 shunt; - Immunization history:: Adult Immunizations unknown. - Social history:: Smoking status: Patient denies any tobacco usage or history of. ROS: 16:42 Constitutional: Negative for fever, chills, and weight loss. kb 16:42 Abdomen/GI: Positive for nausea, vomiting, and diarrhea, Negative for abdominal pain. 16:42 Neuro: Positive for headache. 16:42 All other systems are negative. Exam: 16:42 Constitutional: This is a well developed, well nourished patient who is awake, alert, kb and in no acute distress. Head/Face: Normocephalic, atraumatic. ENT: Moist Mucous membranes Cardiovascular: Regular rate and rhythm with a normal S1 and S2. No gallops, murmurs, or rubs. No pulse deficits. Respiratory: Respirations even and unlabored. No increased work of breathing. Talking in full sentences Abdomen/GI: Soft, non-tender. No distention Skin: Warm, dry with normal turgor. Normal color. MS/ Extremity: Pulses equal, no cyanosis. Neurovascular intact. Full, normal range of motion. Neuro: Awake and alert, GCS 15, oriented to person, place, time, and situation. Moves all extremities. Normal gait. Vital Signs: 13:50 BP 169 / 106; Pulse 84; Resp 18 S; Temp 97.5(TE); Pulse Ox 100% on R/A; Weight 158.76 aa5 kg (R); Height 6 ft. 3 in. (R); 16:13 BP 147 / 80; Pulse 78; Resp 18; Pulse Ox 100% ; mb9 13:50 Body Mass Index 43.75 (158.76 kg, 190.5 cm) aa5 MDM: 13:56 Patient medically screened. kb 16:42 Differential diagnosis: gastritis, pancreatitis, viral gastroenteritis, food poisoning. kb Data reviewed: vital signs, nurses notes. Counseling: I had a detailed discussion with the patient and/or guardian regarding: the historical points, exam findings, and any diagnostic results supporting the discharge/admit diagnosis, lab results, the need for outpatient follow up, a family practitioner, to return to the emergency department if symptoms worsen or persist or if there are any questions or concerns that arise at home. ED course: Pt feeling better, tolerating po intake, nontoxic in appearance. 05 14:03 Order name: CBC with Diff; Complete Time: 15:46 kb 12/12 14:03 Order name: CMP; Complete Time: 15:46 kb 03 14:03 Order name: Lipase; Complete Time: 15:46 kb 03 14:03 Order name: IV Saline Lock; Complete Time: 15:16 kb 03 14:03 Order name: Labs collected and sent; Complete Time: 15:16 kb 03 15:46 Order name: PO challenge; Complete Time: 16:02 kb Administered Medications: 15:05 Drug: NS 0.9% IV 1000 ml Route: IV; Rate: 1 bolus; Site: right wrist; mb9 15:05 Drug: Ondansetron IVP 4 mg Route: IVP; Site: right wrist; mb9 15:08 Drug: Famotidine IVP 20 mg Route: IVP; Site: right wrist; mb9 15:17 Drug: TORadol - Ketorolac IVP 15 mg Route: IVP; Site: right wrist; mb9 Disposition Summary: 12/12/22 16:14 Discharge Ordered Location: Home kb Condition: Stable kb Diagnosis - Nausea with vomiting, unspecified kb - Diarrhea, unspecified kb Followup: kb - With: Emergency Department - When: As needed - Reason: Worsening of condition Followup: kb - With: Private Physician - When: 2 - 3 days - Reason: Recheck today's complaints, Continuance of care, Re-evaluation by your physician Discharge Instructions: - Discharge Summary Sheet kb - Food Choices to Help Relieve Diarrhea, Adult kb - Food Poisoning, [id number] kb Forms: - Medication Reconciliation Form kb - Thank You Letter kb - Antibiotic Education kb - Prescription Opioid Use kb Prescriptions: - ondansetron 4 mg Oral Tablet,disintegrating - take 1 tablet by ORAL route every 6 hours As needed; 15 tablet; Refills: 0, kb Product Selection Permitted - dicyclomine 20 mg Oral Tablet - take 1 tablet by ORAL route 4 times per day As needed; 20 tablet; Refills: 0, kb Product Selection Permitted Signatures: Dispatcher [employer] Rain Chaparro, REESE RITCHIEP-Rain Roy, RN RN aa5 Ghislaine Arredondo RN RN mb9
[2022-12-12 17:03] VITALS: TEMP 97.5; O2SAT 100
[2022-12-12 17:08] VITALS: BP 147/80
== END 2022-12-12 16:46 | disposition home or self-care (01) ==
LOC: ER 13:27
DX: R11.2 Nausea with vomiting, unspecified (principal); R19.7 Diarrhea, unspecified; I10 Essential (primary) hypertension
CPT/HCPCS: 85025; 36415; 83690; 80053; J2405; J7030; 96374; 96375; 99284

== ENCOUNTER 2023-02-08 20:01 | Emergency (ER) | payer OTHER ==
--- OUTSIDE RECORDS SUMMARY | 2023-02-08 20:17 | XMS REPORT | Continuity of Care Document ---
:1980 Author Organization [facility] t Address [address] [facility] [address] [place] [address] Care Team Providers Name Role Phone Joemiguel angelsukumar SANTANA Geovanna Primary Care Physician MANASA CULLEN Attending Clinician Unavailable John Vazquez Attending Clinician Unavailable GERONIMO MICHELLE Attending Clinician Unavailable NOAH OSORIO Attending Clinician Unavailable JUNIOR KUMAR Attending Clinician Unavailable NANETTE HONEYCUTT Attending Clinician Unavailable CRIS JAIMES Attending Clinician Unavailable Kelly LOJA, Karen Trent Attending Clinician Darshan LOJA, Julian Attending Clinician Aidan Lindsey Attending Clinician Cecil LOJA, Jimmy Amato Attending Clinician [phone] Manasa Cullen MD Attending Clinician Manasa Cullen Attending Clinician ANU TUCKER Attending Clinician Unavailable DAYNOAH Attending Clinician Unavailable DayNoah Attending Clinician Sonia Treviño Attending Clinician SONIA TREVIÑO Attending Clinician Unavailable Rae Naranjo RN Attending Clinician Unavailable Geronimo Michelle Attending Clinician Layne Sánchez MA Attending Clinician Unavailable Geronimo Michelle MD Attending Clinician Dorothea Delgadillo MA Attending Clinician Unavailable Amelia Cameron MA Attending Clinician Unavailable Brii Howard MA Attending Clinician Unavailable Kasi Fried Attending Clinician Doctor Unassigned, Peggs Attending Clinician Unavailable 1, [employer] Attending Clinician Unavailable FABY MULLER Attending Clinician Unavailable LAURENCE JIMENEZ Attending Clinician Unavailable Blaire PADRON Attending Clinician Unavailable MICHAEL LICONA M.D. Attending Clinician Unavailable ROBERT YOUSIF M.D. Attending Clinician Unavailable BRANT CEJA NP Attending Clinician Unavailable ANNETTE VALLE M.D. Attending Clinician Unavailable LORENZA SCHMITT M.D. Attending Clinician Unavailable Migue Valle Attending Clinician Geovanna Foley Attending Clinician FER ROTH NP Attending Clinician Unavailable GEOVANNA FOLEY D.O. Attending Clinician Unavailable Jose Crenshaw Attending Clinician JULIAN SEXTON Admitting Clinician Unavailable DAYNOAH Admitting Clinician Unavailable DayNoah Admitting Clinician Manasa Cullen Admitting Clinician MANASA CULLEN Admitting Clinician Unavailable Blaire PADRON Admitting Clinician Unavailable Migue Valle Admitting Clinician Geovanna Foley Admitting Clinician Payers Payer Name Policy Policy Number Effective Expiration Source Type Date Date [facility] MEDICAID STAR [id number] 2018 00:00:00 [facility] [id number] 2018 Common S pirit CHOICE 00:00:00 - [facility] [place] [id number] 2018 Common S pirit CHOICE 00:00:00 - [facility] [place] [id number] 2018 Common S pirit CHOICE 00:00:00 - [facility] [place] [id number] 2018 Common S pirit CHOICE 00:00:00 - [facility] [id number] 2019 [facility] of CHOICE - MANAGED 00:00:00 [facility] CHOICE [id number]/2019-PresentP[address], [place] [address]Medicaid [facility] [id number] 2018 Common S pirit CHOICE 00:00:00 - [facility] [place] [id number] 2018 Common S pirit CHOICE 00:00:00 - [facility] [id number] 2018 Common S pirit CHOICE 00:00:00 - [facility] Problems Condition Condition Condition Status Onset Resolution Last Treating Co mments Source Name Details Category Date Date Treatment Clinician Date CRANIAL CRANIAL Diagnosis Active 2023-02-04 Memoria CEREBROSPI CEREBROSPI 02-01 13:10:00 l NAL FLUID NAL FLUID 00:00: Herm faina LEAK, LEAK, 00 SPONTA SPONTA Active 02/01/2023 [facility] Intractabl Intractabl Disease Active M ethodi e vomiting e vomiting 01-06 st with with 00:00: Hospita nausea nausea 00 l Hematemesi Hematemesi Disease Active M ethodi s with s with 01-06 nausea nausea 00:00: Hospita 00 l Hypertensi Hypertensi Disease Active M ethodi ve urgency ve urgency 01-06 00:00: Hospita 00 l Acute Acute Disease Active Methodi intractabl intractabl 01-06 e headache e headache 00:00: Ho spita 00 l BMI BMI Disease Active 2021-08 UT 40.0-44.9, 40.0-44.9, 0-07 He alth adult adult 00:00: 00 SPINAL SPINAL Diagnosis Active 2021-082022-05-18 Me moria HEADACHE HEADACHE 0-05 08:44:00 l Active 12:00: [place] 05/16/2022 00 [facility] SENY BY SENY BY Diagnosis Active 2021-082022-05-16 Memoria PHYISICIAN PHYISICIAN 0-05 19:45:00 l Active 12:00: [place] 05/16/2022 00 [facility] L L Diagnosis Active 2021-082022-05-12 Mem oria MASTOIDITI MASTOIDITI 0-01 05:56:00 l S S Active 00:00: [place] 05/12/2022 00 [facility] UNSPECIFIE UNSPECIFI Diagnosis Active 2021-10-26 Memoria D ED 3-15 18:20:00 l ABDOMINAL ABDOMINAL 00:00: Anya faina PAIN PAIN 00 Active 10/24/2021 [facility] DISPLACED DISPLACED Diagnosis Active 2021-10-08 Memoria 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 10-08 19:39:00 l Active 00:00: [place] 10/08/2021 00 [facility] 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 Diagnosis Active 2021-10-26 Memoria MALF MALF 10-08 18:20:00 l Active 00:00: [place] 10/08/2021 00 [facility] G96.00 G96.00 Diagnosis Active 2021-10-26 Me moria Active 09-28 18:20:00 l 09/28/2021 00:00: Sadi gresham [address] MD LOJA Diagnosis Active 2021-05-10 Mem oria REFERRAL/ REFERRAL/ 05-10 20:33:00 l FLUIDS FLUIDS 00:00: [place] LEAKING LEAKING 00 FROM EAR FROM EAR Active 05/10/2021 [facility] CSF CSF Disease Active UT otorrhea otorrhea 05-09 Health 00:00: 00 Syncope Syncope Disease Active 2017-08 Methodi 0-14 st 00:00: Hospita 00 l [id number] GERD Problem Common without Spirit esophagiti - [facility] [id number] Tobacco Problem Commo n use Spirit disorder - [facility] [id number] Other Problem Common chronic Spirit pain - [facility] [id number] Mixed Problem Common hyperlipid Spirit emia - [facility] [id number] Decreased Problem Com mon hearing of Spirit left ear - [facility] [id number] Loss of Problem Common taste Spirit [facility] Lesion of Lesion of Problem 2019-01-26 Memoria ulnar ulnar 15:19:24 l nerve, nerve, [place] right right upper limb upper limb 9 [place] Unspecifie Unspecifi Problem 2019-01-26 Memoria d ed 15:19:24 l osteoarthr osteoarthr He jose alfredo itis, itis, unspecifie unspecifie d site d site 01/26/2019 [place] Sleep Sleep Problem 2019-01-26 Memor luis apnea, apnea, 15:19:24 l unspecifie unspecifie He jose alfredo d d 01/26/2019 [place] Unspecifie Unspecifi Problem 2019-01-26 Memoria d asthma, ed asthma, 15:19:24 l uncomplica uncomplica He jose alfredo holley leydi 01/26/2019 [place] Anxiety Anxiety Problem 2019-01-26 M emoria disorder, disorder, 15:19:24 l unspecifie unspecifie He jose alfredo d d 01/26/2019 [place] Gastro-eso Gastro-es Problem 2019-01-26 Memoria phageal ophageal 15:19:24 l reflux reflux [place] disease disease without without esophagiti esophagiti s s 01/26/2019 [place] Essential Essential Problem 2019-01-26 Memoria (primary) (primary) 15:19:24 l hypertensi hypertensi Harpreet veliz on on 01/26/2019 [place] Personal Personal Problem 2019-01-26 Memoria history of history of 15:19:24 l nicotine nicotine Sadi n dependence dependence 01/26/2019 [place] Allergy Allergy Problem 2019-01-26 Me moria status to status to 15:19:24 l analgesic analgesic Herm faina agent agent status status 01/26/2019 [place] watermaster snf Problem 2019-01-26 Memoria (current) (current) 15:19:24 l use of use of [place] non-steroi non-steroi siddharth siddharth anti-infla anti-infla mmatories mmatories (NSAID) (NSAID) 01/26/2019 [place] Dependence Dependenc Problem 2019-01-26 Memoria on other e on other 15:19:24 l enabling enabling Sadi n machines machines and and devices devices 01/26/2019 [place] Arthrodesi Arthrodes Problem 2019-01-26 Memoria s status is status 15:19:24 l 01/26/2019 Sadi n [place] MECH COMPL MECH Diagnosis Active 2021-10-26 Memoria OF COMPL OF 18:20:00 l VENTRICULA VENTRICULA Harpreet veliz R R INTRACRANI INTRACRANI AL S AL S Active [facility] R10.30 - R10.30 - Diagnosis Active 2021-10-26 Memoria LOWER LOWER 18:20:00 l ABDOMINAL ABDOMINAL Herm faina PAIN, PAIN, UNSPECIF UNSPECIF Active RHODA Cedeño R10.84 - R10.84 - Diagnosis Active 2022-01-10 Memoria GENERALIZE GENERALIZE 14:35:00 l D D [place] ABDOMINAL ABDOMINAL PAIN PAIN Active RHODA Burr Cerebrospi Cerebrosp Problem Active 2022-09-23 Memoria nal fluid inal fluid 07:26:44 l leak leak [place] (disorder) (disorder) Active Problem 09/23/2022 [facility], RHODA Cedeño, Thomas Renteria [facility] Chest pain Chest Problem Active 2022-09-23 M andrzej (finding) pain 07:26:44 l (finding) [place] Active Problem 09/23/2022 [facility], RHODA Cedeño, RHODA BurrM H [place],[facility] Headache Headache Problem Active 2022-09-23 Memoria (finding) (finding) 07:26:44 l Active [place] Problem 09/23/2022 [facility] Morbid Morbid Problem Active 2022-09-23 David katarzyna obesity obesity 07:26:44 l (disorder) (disorder) He rmann Active Problem 09/23/2022 [facility], RHODA Cedeño, RHODA Burr,[facility] Rhabdomyol Rhabdomyo Problem Active 2022-09-23 Memoria ysis lysis 07:26:44 l (disorder) (disorder) He rmann Active Problem 09/23/2022 [facility], RHODA Cedeño, RHODA Burr, H [place],[facility] Smoker Smoker Problem Active 2022-09-23 David katarzyna (finding) (finding) 07:26:44 l Active [place] Problem 09/23/2022 [facility], RHODA Cedeño, RHODA Burr,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 (finding) (finding) Active Problem 09/23/2022 [facility] OTHER OTHER Diagnosis Active 2022-05-18 Mem oria REACTION REACTION 08:44:00 l TO SPINAL TO SPINAL Herm faina AND LUMBAR AND LUMBAR PUNC PUNC Active [facility] G96.01 - G96.01 - Diagnosis Active 2022-09-20 Memoria CRANIAL CRANIAL 13:51:00 l CEREBROSPI CEREBROSPI He rmann NAL FLUID NAL FLUID LE LE Active RHODA Cedeño No known No known Disease Unive rs active active ity of problems problems [facility] Cubital Cubital Problem Active [...] Active [facility] vomiting vomiting Physic i ans [id number] Non-season Problem Com mon al Spirit allergic - [facility] rhinitis, unspecifie [facility] d [facility] Medical [place] [id number] Mild Problem Common intermitte Spirit nt asthma - [facility] with allergic [facility] rhinitis, Medical unspecifie Center d whether complicate d [id number] Depression Problem Co mmon with Spirit anxiety - [facility] [id number] Migraine Problem Comm on without Spirit aura and - [facility]I without St status [facility] migrainosu Medica l s, not Center intractabl e [id number] Attention Problem Comm on deficit Spirit hyperactiv - [facility] ity [facility] (ADHD), Medical combined Center type [id number] Primary Problem Comm on osteoarthr Spirit itis of - [facility]I right knee [facility] [id number] Pain in Problem Common right knee Spirit - [facility] [id number] Left Problem Common maxillary Spirit sinusitis - [facility] [id number] Hypertensi Problem Com mon on, Spirit unspecifie - [facility]I d type [facility] Sprain of Sprain of Problem Resolve 2022-05-21 2022-05-21 Memoria ligament ligament d 12-22 21:55:10 21:55:10 l of finger of finger 00:00: Anya eisenberg (disorder) (disorder) 00 Resolved 12/23/2011 Problem 05/21/2022 [facility], RHODA Cedeño, RHODA Burr,M H [place] History of Past Illness Condition Condition Condition Status Onset Resolution Last Treating Co mments Source Name Details Category Date Date Treatment Clinician Date Headache, Headache, Problem 2021-082022-05-14 2022-05-14 Memoria unspecifie unspecifie 0- 23:16:23 23:16:23 l d d 02:01: [place] 05/13/2022 00 [facility] Presence Presence Problem 2021-082022-05-14 2022-05-14 Memoria of of 0-02 23:16:23 23:16:23 l cerebrospi cerebrospi 02:01: Harpreet veliz nal fluid nal fluid 00 drainage drainage device device 05/13/2022 05/14/2022 [facility] Headache, Headache, Problem 2021-05-13 2021-05-13 Memoria unspecifie unspecifie 05-10 21:21:08 21:21:08 l d d 17:00: [place] 05/10/2021 00 [facility] Carpal Carpal Problem 2017-082019-01-26 2019-01-26 Memoria tunnel tunnel 2 15:19:24 15:19:24 l syndrome, syndrome, 04:59: Anya faina right right 41 upper limb upper limb 8 01/26/2019 [place] Obstructiv Obstructi Problem 2017-082019-01-11 2019-01-11 Mike e sleep ve sleep 08-28 11:08:48 11:08:48 l apnea apnea 05:23: [place] (adult) (adult) 17 (pediatric (pediatric ) ) 06/28/2018 01/11/2019 [place] Unspecifie Unspecifi Problem 2017-082018-12-03 2018-12-03 Mike d ed 0-11 14:53:30 14:53:30 l mononeurop mononeurop 04:28: Harpreet veliz athy of athy of 42 right right upper limb upper limb 05/22/2018 12/03/2018 [place] Pain in Pain in Problem 2017-082018-12-03 2018-12-03 Mike arm, arm, 0-05 14:53:30 14:53:30 l unspecifie unspecifie 05:00: Harpreet veliz d d 00 05/16/2018 12/03/2018 [place] Allergies, Adverse Reactions, Alerts Allergy Allergy Status Severity Reaction(s) Onset Inactive Treating Comm ents Source Name Type Date Date Clinician No Known No Known Active Memori a Medicati Medicati l on on [place] Allergie Allergie s s NO KNOWN Allergy Active [facility] NO KNOWN Drug Active Univers ALLERGIE Class ity of S [facility] Acetamin drug Active Headache UT ophen allergy Physici TABS ans Family History Family Member Diagnosis Comments Start Date Stop Date Source Other Diabetes [facility] natural son Family history of [facility] [...] [facility] Alcohol Frequency History SD[facility] Std [facility] B[facility] History of Social 2023-01-07 2023-01-[address] function 00:00:00 00:00:00 Hospital Tobacco use and 2023-01-06 2023-01-06 Smokeless tobacco Me thodist exposure 00:00:00 00:00:00 non-user Hospital Alcohol intake 2023-01-06 2023-01-06 Current non-drinker M ethodist 00:00:00 00:00:00 of alcohol Hospital (finding) Tobacco Comment 2022-11-14 2022-11-14 Pt quit few years [facility] I [facility] 00:00:00 00:00:00 [facility] Exposure to 2022-09-18 2022-09-28 Not sure [facility] SARS-CoV-2 (event) 00:00:00 14:46:00 Social History 2022-05-17 2022-05-17 [facility] 04:43:56 04:43:56 Alcohol Comment 2021-10-18 2021-10-18 [facility]ass[facility]ally [facility] 00:[facility] 00:00:00 History of tobacco 2018-04-25 Current smoker Me thodist use 00:00:00 Hospital Sex Assigned At [birth year] ALENA Price 00:00:00 00:00:00 Medical Center Smoking Status Start Date Stop Date Source Unknown if ever smoked [facility] Current Smoker 2022-06-22 00:00:00 Common Spiri t - [facility] Tobacco smoking status 2022-05-17 04:42:15 2022-05-17 04:42:15 M michaela Cedeño Medications Ordered Filled Start Stop Current Ordering Indication Dosage Frequency Signature Comments Components Source Medication Medication Date Date Medication? Clinician (SIG) Name Name lisinopriL Yes 40mg QD Take 1 Metho di (PRINIVIL) 5-30 tablet (40 st 40 mg 18:25: mg total) Hospita tablet 02 by mouth l [place]ADoL [place] [id number] 50mg Q24H Take 1 Method i (ULTRAM) 50 5-30 tablet (50 st mg tablet 18:25: mg total) Hos yumiko 02 by mouth l daily as needed for moderate pain .acute pain. omeprazole 2022-0 Yes 40mg QD Take 1 Metho di (PriLOSEC) 5-[address] 40 MG 18:25: (40 mg Hospita capsule 02 total) by l mouth daily. dicyclomine 0 Yes 20mg QD Take 1 Meth aubree (BENTYL) 20 5-30 tablet (20 st mg tablet 18:25: mg total) Hos yumiko 02 by mouth l daily. ondansetron 0 Yes 4mg Q8H Take 1 Meth aubree ODT 5-30 tablet (4 st (ZOFRAN-ODT 18:25: mg total) H ospita ) 4 MG 02 by mouth l disintegrat every 8 ing tablet (eight) hours as needed for nausea or vomiting. amLODIPine 0 2022- No 5mg QD Take 1 Meth aubree (NORVASC) 5 5-30 06-30 tablet (5 st mg tablet 00:00: 04:59 mg total) Ho spita 00 :00 by mouth l daily for 30 days. ciprofloxac 2022-0 2022- No 500mg Q.5D Take 1 Me thodi in (Cipro) 5-29 06-[address] 500 MG 00:00: 04:59 (500 mg Hospita tablet 00 :00 total) by l mouth 2 (two) times a day for 5 days. metroNIDAZO 2022- No 500mg Q.[id number] Take 1 Methodi LE (FlagyL) 01-[id number] 500 MG 00:00: 04:59 3D (500 mg Hospita tablet 00 :00 total) by l mouth 3 (three) times a day for 5 days. butalbital- 2022- No 1{tbl} Q6H Take 1 M ethodi acetaminoph 01-[address] en-caff 00:00: 04:59 mouth Hospita (FIORICET) 00 :00 every 6 l 50-325-40 (six) mg per hours as tablet needed for headaches for up to 2 days. ondansetron 0 Yes [address] (Zofran) 8 4-06 as needed Luke s MG tablet 16:50: [address] ondansetron 0 Yes [address] (Zofran) 8 4-06 as needed Luke s MG tablet 16:50: [address] ondansetron 0 Yes [address] (Zofran) 8 4-06 as needed Luke s MG tablet 16:50: [address] traMADol 2022- No [id number] 50mg Q6H Take 1 UT (Ultram) 50 2-17 10-04 9106 tablet (50 H ealth MG tablet 00:00: 05:59 mg total) 00 :00 by mouth every 6 (six) hours if needed for severe pain for up to 5 days. omeprazole 0 Yes UT (PriLOSEC) 2-[address] 00:00: capsule 00 losartan-hy 2022-0 Yes UT droCHLOROth 2-16 Health iazide 00:00: (Hyzaar) 00 100-25 MG tablet omeprazole 2022-0 Yes [address] (PriLOSEC) 2-16 30 minutes Ariel es 40 MG 00:00: before Medical capsule 00 morning Center meal losartan 2022-0 Yes 100mg QD Take [address] (COZAAR) 2-16 tablet [facility] 100 MG 00:00: (100 mg Medical tablet 00 total) by Center mouth in the morning. omeprazole 2023-0 Yes [address] (PriLOSEC) 2-16 30 minutes Ariel es 40 MG 00:00: before Medical capsule 00 morning Center meal losartan 2023-0 Yes 100mg QD Take [address] (COZAAR) 2-16 tablet [facility] 100 MG 00:00: (100 mg Medical tablet 00 total) by Center mouth in the morning. omeprazole 2023-0 Yes [address] (PriLOSEC) 2-16 30 minutes Ariel es 40 MG 00:00: before Medical capsule 00 morning Center meal losartan 2023-0 Yes 100mg QD Take [address] (COZAAR) 2-16 tablet [facility] 100 MG 00:00: (100 mg Medical tablet 00 total) by Center mouth in the morning. ondansetron 2022-2022- No 105 4mg UT (Zofran) 09-18 Health tablet 4 mg 16:42: 16:41 42 :42 traMADol 2022-0 2022- No [id number] 50mg Q6H Take 1 UT (Ultram) 50 09-18 9103 tablet (50 H ealth MG tablet 00:00: 05:59 mg total) 00 :00 by mouth every 6 (six) hours if needed for severe pain for up to 5 days. lisinopriL 2023-0 Yes 40mg QD Take 1 CHI S t (PRINIVIL,Z 2-06 tablet (40 Minnie kes ESTRIL) 40 00:00: mg total) Me dical MG tablet 00 by mouth Center in the morning. lisinopriL 2023-0 Yes 40mg QD Take 1 CHI S t (PRINIVIL,Z 2-06 tablet (40 Minnie kes ESTRIL) 40 00:00: mg total) Me dical MG tablet 00 by mouth Center in the morning. lisinopriL 2023-0 Yes 40mg QD Take 1 CHI S t (PRINIVIL,Z 2-06 tablet (40 Minnie kes ESTRIL) 40 00:00: mg total) Me dical MG tablet 00 by mouth Center in the morning. ciprofloxac 2022-0 3- No [id number] 10[drp] Q.5D Administer UT in-dexameth 09-07 76921 10 drops He alth asone 00:00: 05:59 [...] 1{table QD Lisinopril 40 MG 40 MG -11 t} 40 MG 00:00: 00 Ondansetron Ondansetron 2021-08 No 1{table Ondansetro 4 MG 4 MG -11 t_on_th n 4 MG 00:00: e_tongu 00 e_and_a llow_to _dissol ve} Pantoprazol Pantoprazol 2021-08 No 1{table QD Pantoprazo e Sodium 40 e Sodium 40 -11 t} le Sodium MG MG 00:00: 40 MG 00 Lisinopril Lisinopril 2021-08 No 1{table QD Lisinopril 40 MG 40 MG -11 t} 40 MG 00:00: 00 Ondansetron Ondansetron 2021-08 No 1{table Ondansetro 4 MG 4 MG -11 t_on_th n 4 MG 00:00: e_tongu 00 e_and_a llow_to _dissol ve} Pantoprazol Pantoprazol 2021-08 No 1{table QD Pantoprazo e Sodium 40 e Sodium 40 -11 t} le Sodium MG MG 00:00: 40 MG 00 Lisinopril Lisinopril 2021-08 No 1{table QD Lisinopril 40 MG 40 MG -11 t} 40 MG 00:00: 00 Pantoprazol Pantoprazol 2021-08 No 1{table QD Pantoprazo e Sodium 40 e Sodium 40 08-22 t} le Sodium MG MG 00:00: 40 MG 00 Ondansetron Ondansetron 2021-08 No 1{table Ondansetro 4 MG 4 MG 08-22 t_on_th n 4 MG 00:00: e_tongu 00 e_and_a llow_to _dissol ve} docusate 2021-08 Yes 100 mg = 1 Mem oria sodium 100 0-08 cap, PO, l mg oral 14:59: Q12H, # 14 Herm faina capsule 00 cap, 0 Refill(s), Pharmacy: [facility] #[id number], 190.5, cm, 05/16/22 23:38:00 CDT, Height, 159.001, kg, 05/16/22 23:38:00 CDT, Weight senna 8.6 2021-08 Yes 8.6 mg = 1 Me moria mg oral 0-08 tab, PO, l tablet 14:59: Q12H, X 7 Sadi n 00 day, # 14 tab, 0 Refill(s), Pharmacy: [facility][id number], 190.5, cm, 05/16/22 23:38:00 CDT, Height, 159.001, kg, 05/16/22 23:38:00 CDT, Weight polyethylen 2021-08 Yes 17 gm, PO, Memoria e glycol 0-08 BID, X 14 l 3350 oral 14:59: day, # 255 He rmann powder for 00 gm, 0 reconstitut Refill(s), ion Pharmacy: [facility] #[id number], 190.5, cm, 05/16/22 23:38:00 CDT, Height, 159.001, kg, 05/16/22 23:38:00 CDT, Weight celecoxib 2021-08 Yes 200 mg = 1 Me moria 200 mg oral 0-08 cap, PO, l capsule 13:50: BID, # 28 Kelly nn 00 cap, 0 Refill(s), Pharmacy: [facility] #[id number], 190.5, cm, 05/16/22 23:38:00 CDT, Height, 159.001, kg, 05/16/22 23:38:00 CDT, Weight Omnipaque 2021-08 No 100 mL, Memor ia 350 mg/mL 0-08 Route: l 02:52: IVP, Drug [place] 00 Form: SOLN, Dosing Weight 159.001, kg, ONCALL, STAT, Start date: 05/18/22 21:52:00 CDT, Duration: 1 doses or times, Dose = 2.2ml/kg, Max dose = 100ml -- "To be infused by Radiology Staff ONLY" ketOROLAC 2021-08 No 4 days. David katarzyna 15 mg/mL 0-08 l injectable 01:23: [place] solution 00 heparin 2021-08 No 5,000 Memoria 5000 0-08 unit, 1 l units/mL 01:00: mL, Route: Her jones injectable 00 SUB-Q, solution Drug form: INJ, Q8H, Dosing Weight 159.001, kg, Start date: 05/18/22 20:00:00 CDT, Duration: 30 day, Stop date: 06/17/22 16:00:00 BUFFER CHROME, 0 hydrOXYzine 2021-08 No Notes: David katarzyna 0-07 (Same as: l 22:45: Vistaril) [place] 00 Omnipaque 2021-08 No Notes: Memori a 350 mg/mL 0-07 (same l 21:28: as:Omnipaq [place] 00 ue 350). WASTE: F/P - Black; E - Municipal Trash [employer] heparin 2021-08 No Notes: Memoria 5000 0-07 porcine l units/mL 21:00: heparin Sadi n injectable 00 solution tramadol 50 2021-08 No Notes: Not Memoria mg oral 0-07 to exceed l tablet 17:20: 400mg/day. Kelly nn 00 (Same As: Ultram) Tylenol 2021-08 No Notes: Do Memor ia 0-07 not exceed l 17:20: 4 gm/day. [place] 00 (Same as: Tylenol) tramadol 50 2021-08 No Notes: Not Memoria mg oral 0-07 to exceed l tablet 16:55: 400mg/day. Kelly nn 00 (Same As: Ultram) tramadol 50 2021-08 Yes 50 mg = 1 M emoria mg oral 0-07 tab, PO, l tablet 12:42: Q6H, PRN [place] 00 Pain, not to exceed 400 mg/day, X 5 day, # 20 tab, 0 Refill(s), Pharmacy: [facility] #[id number], 190.5, cm, 05/16/22 23:38:00 CDT, Height, 159.001, kg, 05/16/22 23:38:00 CDT, Weight lisinopril 2021-08 No Notes: Memor ia 0-06 (Same as: l 17:27: Prinivil, [place] 00 Zestril) docusate 2021-08 No Notes: Memoria 0-06 (Same as: l 14:00: Colace) [place] 00 (Do Not Crush) senna 2021-08 No Notes: Memoria 0-06 (Same as: l 14:00: Senokot) [place] 00 ofloxacin 2021-08 No Notes: Memori a otic 0.3% 0-06 (Same as: l solution 14:00: Floxin [place] 00 Otic) pantoprazol 2021-08 No Notes: David katarzyna e 0-06 Tablet l 14:00: should not [place] 00 be chewed or crushed. (Same as: Protonix) topiramate 2021-08 No Notes: Memor ia 0-06 (Same As: l 14:00: Topamax) [place] 00 "Do Not Crush" Hazardous Drug Group 3:Reproduc tive risk Hazardous Drug -- Refer to safe handling procedure PPE Matrix ceFAZolin 2021-08 No Notes: Memori a (SCIP) 0-06 (Same as l 05:00: Ancef) [place] 00 Adult 2021-08 No 650 mg = 2 Memori a Aspirin 325 0-06 tab, PO, l mg oral 04:57: Q4H, 0 [place] tablet 00 Refill(s) Aspercreme 2021-08 Yes 1 patch, Mem oria Odor Free 0-06 TOP, l Max 04:56: Daily, 0 [place] Strength 00 Refill(s) Lidocaine Patches X-Large 4% topical film Saline 2021-08 No Notes: Memoria Flush 0.9% 0-06 (Same as: l 02:00: BD [place] 00 Posiflush) Keppra 500 2021-08 No Notes: Memor ia mg oral 0-06 (Same l tablet 02:00: as:Keppra) Kelly nn 00 sucralfate 2021-08 No Notes: December emoria 0-06 interfere l 02:00: w/enteral [place] 00 feeds - Take 1 hr before or 2 hr after antacids, dairy pdt, meals & minerals - On empty stomach. For patients unable to swallow tablet, dissolve in 10mL - 30mL of water or juice and stir before giving. (Same As: Carafate) Sodium 2021-08 No 1,000 mL, Memori a Chloride 0-06 Rate: 75 l 0.9% IV 00:53: ml/hr, [place] 1,000 mL 00 Infuse over: 13.3 hr, Route: IV, Dosing Weight 159.091 kg, Total Volume: 1,000, Start date: 05/16/22 19:53:00 CDT, Duration: 30 day, Stop date: 06/15/22 19:52:00 CDT, BSA: 2.93 m2, 0 topiramate 2021-08 Yes 25 mg = 1 Me moria 25 mg oral 0-06 tab, PO, l tablet 00:52: BID, # 120 Kelly nn 00 tab, 1 Refill(s) lisinopril 2021-08 Yes 20 mg = 1 Me moria 20 mg oral 0-06 tab, PO, l tablet 00:52: Daily, # [place] 00 30 tab, 0 Refill(s) pantoprazol 2021-08 Yes TAKE 1 David katarzyna e 40 mg 0-06 TABLET BY l oral 00:52: MOUTH [place] enteric 00 EVERY DAY coated tablet sucralfate 2021-08 Yes 1 gm = 1 Mem oria 1 g oral 0-06 tab, PO, l tablet 00:52: Before [place] 00 Meals & Bedtime, # 120 tab, 3 Refill(s) amoxicillin 2021-08 No 1 tab, PO, Memoria -clavulanat 0-06 BID, # 20 l e 875 00:52: tab, 0 [place] mg-125 mg 00 Refill(s) oral tablet metoclopram 2021-08 No 10 mg = 1 M emoria debbie 10 mg 0-06 tab, PO, l oral tablet 00:52: QID, # 56 H ermann 00 tab, 0 Refill(s) lidocaine 2021-08 No 0 Memoria topical 0-06 Refill(s) l patch (5% 00:52: [place] film) 00 tramadol 50 2021-08 No 50 mg = 1 M emoria mg oral 0-06 tab, PO, l tablet 00:52: Q6H, PRN [place] 00 Pain, # 40 tab, 0 Refill(s) cyclobenzap 2021-08 No TAKE 1 David katarzyna rine 10 mg 0-06 TABLET BY l oral tablet 00:52: MOUTH Kelly nn 00 EVERY 8 HOURS NEEDED FOR MUSCLE SPASM promethazin 2021-08 No TAKE 1 David katarzyna e 25 mg 0-06 TABLET BY l oral tablet 00:52: MOUTH Kelly nn 00 EVERY 6 HOURS NEEDED FOR NAUSEA levofloxaci 2021-08 No 750 mg = 1 Memoria n 750 mg 0-06 tab, PO, l oral tablet 00:52: Daily, # 5 [place] 00 tab, 0 Refill(s) ondansetron 2021-08 No 4 mg = 1 Me moria 4 mg oral 0-06 tab, PO, l tablet, 00:52: TID, PRN Sadi n disintegrat 00 Nausea / ing Vomiting, Dissolve tab under tongue, # 10 tab, 0 Refill(s) predniSONE 2021-08 No 10 mg = 1 Me moria 10 mg oral 0-06 tab, PO, l tablet 00:52: Daily, # [place] 00 30 tab, 3 Refill(s) ofloxacin 2021-08 No 5 drp, Memori a otic 0.3% 0-06 BOTH EARS, l solution 00:52: BID, # 5 Kelly nn 00 mL, 0 Refill(s) Sodium 2021-08 No 1,000 mL, Memori a Chloride 0-06 Rate: 50 l 0.9% IV 00:45: ml/hr, [place] 1,000 mL 00 Infuse over: 20 hr, Route: IV, Dosing Weight 159.091 kg, Total Volume: 1,000, Start date: 05/16/22 19:45:00 CDT, Duration: 30 day, Stop date: 06/15/22 19:44:00 CDT, BSA: 2.93 m2, 0 labetalol 2021-08 No 10 mg, 2 David katarzyna 0-06 mL, Route: l 00:45: IVP, Drug form: INJ, Q15Min, Dosing Weight 159.091, kg, PRN Hypertensi on, Start date: 05/16/22 19:45:00 CDT, Duration: 3 doses or times, Stop date: Limited # of times, 0 hydrALAZINE 2021-08 No Notes: David katarzyna 0-06 (Same as: l 00:45: Apresoline ) Push over 5 minutes ondansetron 2021-08 No Notes: David katarzyna 0-06 (Same as: l 00:45: Zofran) MEDICATION WASTE Product Size: 4 mg Product Wasted: ___ mg [place] 2021-08 No Notes: Do Memoria 10/325 oral 0-06 not exceed l tablet 00:45: 4gm/day of Kelly acetaminop hen. (Same as: [place] 325/10) Dilaudid 2021-08 No 0.5 mg, Memori a 0-06 0.25 mL, l 00:45: Route: [place] 00 IVP, Drug form: SOLN, Q3H, Dosing Weight 159.091, kg, PRN Pain Score 7-10, Start date: 05/16/22 19:45:00 CDT, Duration: 30 day, Stop date: 06/15/22 19:44:00 CDT, 0 Benadryl 2021-08 No Notes: Memoria 0-06 (Same as: l 00:45: Benadryl) Chlorasepti 2021-08 No Notes: David katarzyna c 1.4% 0-06 Chlorasept l spray 00:45: ic [place] (Same as: Chlorasept ic, Sore Throat [place]) WASTE: F/P - Black; E - Municipal Trash Bin bisacodyl 2021-08 No Notes: Memori a 0-06 (Same As: l 00:45: Dulcolax, Bisco-Lax) Saline 2021-08 No Notes: Memoria Flush 0.9% 0-06 (Same as: l 00:45: BD Posiflush) caffeine 2021-08 No Notes: Memoria 200 mg oral 0-05 Same as: l tablet 23:56: No Doz) morphine 2021-08 No 4 mg, Memoria Sulfate 0-05 Route: l 23:45: IVP, ONCE, Dosing Weight 159.091, kg, Priority: STAT, Start date: 05/16/22 18:45:00 CDT, Stop date: 05/16/22 18:45:00 CDT metoclopram 2021-08 No 10 mg, David katarzyna debbie 0-05 Route: l 23:44: IVP, Drug form: INJ, ONCE, Dosing Weight 159.091, kg, Priority: STAT, Start date: 05/16/22 18:44:00 CDT, Stop date: 05/16/22 18:44:00 CDT Tylenol 2021-08 No 1,000 mg, Memor ia 0-05 Route: PO, l 23:44: ONCE, Dosing Weight 159.091, kg, Start date: 05/16/22 18:44:00 CDT, Stop date: 05/16/22 18:44:00 CDT Lactated 2021-08 No 1,000 mL, David katarzyna Ringers 0-05 Infuse l (Bolus) IV 23:44: Over: 1 hr, Route: IV, ONCE, Priority: STAT, Dosing Weight 159.091 kg, Start date: 05/16/22 18:44:00 CDT, Stop date: 05/16/22 18:44:00 CDT No known 2021-08 No No known UT medications 0-05 medication He alth 15:32: s 45 amoxicillin 2021-08 Yes 1{tbl} Q12H Take 1 UT -clavulanat 0-03 tablet by [facility] e 00:00: mouth (Augmentin) 00 every 12 875-125 MG (twelve) tablet hours. FOR 7 DAYS topiramate 2021-08 Yes TAKE 1 UT ([facility]) [facility] 00:00: MOUTH tablet 00 [...] 00 EVERY 12 HOURS FOR 10 DAYS Augmentin 2021-08 Yes 875 mg = 1 Me moria 875 mg oral 0-02 tab, PO, l tablet 02:03: Q12H, X 7 Sadi n 00 day, # 14 tab, 0 Refill(s) Reglan 10 2021-08 Yes 10 mg = 1 Mem oria mg oral 0-02 tab, PO, l tablet 02:03: Q6H, PRN nausea and vomiting, X 5 day, # 20 tab, 0 Refill(s) ketOROLAC 2021-08 No 15 mg, Memori a 0-02 Route: l 01:29: IVP, Drug form: INJ, ONCE, Dosing Weight 145.455, kg, Priority: STAT, Start date: 05/12/22 20:29:00 CDT, Stop date: 05/12/22 20:29:00 CDT acetaminoph 2021-08 Yes Notes: Do M emoria en 0-02 not exceed l 01:19: 4 gm/day. (Same as: Tylenol) ibuprofen 2021-08 No 600 mg, Memor ia 0-02 Route: PO, l 01:19: ONCE, Dosing Weight 145.455, kg, Priority: STAT, Start date: 05/12/22 20:19:00 CDT, Stop date: 05/12/22 20:19:00 CDT Lactated 2021-08 No 1,000 mL, David katarzyna Ringers 0-02 Infuse l (Bolus) IV 01:19: Over: 1 hr, Route: IV, ONCE, Priority: STAT, Dosing Weight 145.455 kg, Start date: 05/12/22 20:19:00 CDT, Stop date: 05/12/22 20:19:00 CDT metoclopram 2021-08 No 10 mg, David katarzyna debbie 0-02 Route: l 01:18: IVP, Drug form: INJ, ONCE, Dosing Weight 145.455, kg, Priority: STAT, Start date: 05/12/22 20:18:00 CDT, Stop date: 05/12/22 20:18:00 CDT morphine 2021-08 No Notes: Memoria Sulfate 0-01 (Same l 22:33: as:MORPhin e Sulfate) fentaNYL 2021-08 No Notes: Memoria 0-01 (Same as: l 17:14: Sublimaze) Preservati ve free. lidocaine 2021-08 No Notes: Memori a 1% 0-01 (Same as: l 15:19: Xylocaine) morphine 2021-08 No Notes: Memoria Sulfate 0-01 (Same l 15:19: as:MORPhin [place] 00 e Sulfate) Benadryl 2021-08 No 25 mg, Memoria 0-01 Route: l 14:48: IVP, ONCE, Dosing Weight 145.455, kg, Priority: STAT, Start date: 05/12/22 9:48:00 CDT, Stop date: 05/12/22 9:48:00 CDT Isolyte S 2021-08 No 500 mL, Memor ia PH-7.4 0-01 Infuse l (Bolus) IV 14:48: Over: Herm hr, Route: IV, Drug form: INJ, ONCE, Priority: STAT, Dosing Weight 145.455 kg, Start date: 05/12/22 9:48:00 CDT, Stop date: 05/12/22 9:48:00 CDT, Bolus Dose Compazine 2021-08 No 10 mg, Memori a 0-01 Route: l 14:47: IVPB, Drug form: INJ, ONCE, Dosing Weight 145.455, kg, Priority: STAT, Start date: 05/12/22 9:47:00 CDT, Stop date: 05/12/22 9:47:00 CDT fentaNYL 2021- No 50 Memoria 0-01 microgram, l 13:26: Route: [place] 00 IVP, ONCE, Dosing Weight 145.455, kg, Priority: STAT, Start date: 05/12/22 8:26:00 CDT, Stop date: 05/12/22 8:26:00 CDT morphine 2021-08 No 4 mg, Memoria Sulfate 0-01 Route: l 13:23: IVP, ONCE, [place] 00 Dosing Weight 145.455, kg, Priority: STAT, Start date: 05/12/22 8:23:00 CDT, Stop date: 05/12/22 8:23:00 CDT ketOROLAC 2021-08 No 4 days Memor ia 0-01 l 10:21: MEDICATION WASTE Product Size: 30 mg Product Wasted: ___ mg lisinopril 2021-0 Yes 20mg QD Take 20 mg U T 20 MG 8-16 by mouth 1 Health tablet 00:00: (one) time 00 each day. lisinopril 2021-0 Yes 20mg QD Take 20 mg U T 20 MG 8-16 by mouth 1 Health tablet 00:00: (one) time 00 each day. ofloxacin Yes INSTILL 4 UT (Floxin) 6-15 DROPS INTO Healt h 0.3 % otic 00:00: LEFT EAR solution 00 TWICE A DAY ofloxacin 2021-0 Yes INSTILL 4 UT (Floxin) 6-15 DROPS INTO Healt h 0.3 % otic 00:00: LEFT EAR solution 00 TWICE A DAY ofloxacin 2021-0 Yes INSTILL 4 UT (Floxin) 6-15 DROPS INTO Healt h 0.3 % otic 00:00: LEFT EAR solution 00 TWICE A DAY No known 0 No No known UT medications 3-11 medication He alth 13:38: s 44 Cefazolin 2021-0 No Notes: Memori a 10-10 (Same As: l 04:00: Ancef, [place] 00 Kefzol) MEDICATION WASTE Product Size: 1000 mg Product Wasted: ___ mg Cefazolin No Notes: Memori a 3 (Same As: l 04:00: [place] K[place] Kefzol) MEDICATION WASTE Product Size: 1000 mg Product Wasted: ___ mg Oxycodone No 10 mg, Memori a 10-09 Route: PO, l 21:36: Drug form: [place] 00 TAB, ONCE, Dosing Weight 156, kg, PRN Pain Score 7-10, Start date: 10/09/21 15:36:00 BUFFER CHROME Oxycodone 0 No 10 mg, Memori a 10-09 Route: PO, l 21:36: Drug form: [place] 00 TAB, ONCE, Dosing Weight 156, kg, PRN Pain Score 7-10, Start date: 10/09/21 15:36:00 BUFFER CHROME Ofirmev 2021-0 No or = 50 Memori a 2-28 kg, Start l 21:19: date: 10/09/21 15:19:00 BUFFER CHROME Ofirmev 2021-0 No or = 50 Memori a 2-28 kg, Start l 21:19: date: 10/09/21 15:19:00 BUFFER CHROME sugammadex 0 No Route: IV, M emoria (ANES) 10-09 Drug form: l 21:05: [place] DAVE 00 ONCE, Stop date: 10/09/21 15:05:00 BUFFER CHROME sugammadex 2021-0 No Route: IV, M emoria (ANES) 10-09 Drug form: l 21:05: [place] DAVE 00 ONCE, Stop date: 10/09/21 15:05:00 BUFFER CHROME Hydromorpho 0 No Notes: David katarzyna ne 10-09 Same as l 21:02: Dilaudid Flumazenil No Notes: Memor ia 10-09 (Same as: l 21:02: Romazicon) Naloxone No Notes: Memoria 10-09 Same as l 21:02: Narcan Ondansetron No 4 mg, Memor ia 10-09 Route: l 21:02: IVP, ONCE, Dosing Weight 156, kg, PRN Nausea & Vomiting, Start date: 10/09/21 15:02:00 BUFFER CHROME Hydromorpho 2021-0 No Notes: David katarzyna ne 10-09 Same as l 21:02: Dilaudid Flumazenil No Notes: Memor ia 10-09 (Same as: l 21:02: Romazicon) Naloxone 2021-0 No Notes: Memoria 10-09 Same as l 21:02: Narcan Ondansetron No 4 mg, Memor ia 10-09 Route: l 21:02: IVP, ONCE, Dosing Weight 156, kg, PRN Nausea & Vomiting, Start date: 10/09/21 15:02:00 BUFFER CHROME ondansetron No Route: IV, Memoria (ANES) 10-09 Drug form: l 21:00: INJ, ONCE, Stop date: 10/09/21 15:00:00 BUFFER CHROME ondansetron 2021-0 No Route: IV, Memoria (ANES) 10-09 Drug form: l 21:00: INJ, ONCE, Stop date: 10/09/21 15:00:00 BUFFER CHROME ceFAZolin 2021-0 No Route: IV, Me moria (ANES) 10-09 Drug form: l 20:38: INJ, ONCE, Stop date: 10/09/21 14:38:00 BUFFER CHROME ceFAZolin 2021-0 No Route: IV, Me moria (ANES) 10-09 Drug form: l 20:38: INJ, ONCE, Stop date: 10/09/21 14:38:00 BUFFER CHROME propofol 2021-0 No Route: IV, Mem oria (ANES) 10-09 Drug form: l 20:33: INJ, ONCE, Stop date: 10/09/21 14:33:00 BUFFER CHROME rocuronium 2021-0 No Route: IV, M emoria (ANES) - Drug form: l 20:33: INJ, ONCE, Stop date: 10/09/21 14:33:00 BUFFER CHROME fentaNYL 2021-0 No Route: IV, Mem oria (ANES) 10-09 Drug form: l 20:33: INJ, ONCE, Stop date: 10/09/21 14:33:00 BUFFER CHROME dexamethaso No Route: IV, Memoria ne (ANES) 10-09 Drug form: l 20:33: INJ, ONCE, Stop date: 10/09/21 14:33:00 BUFFER CHROME propofol No Route: IV, Mem oria (ANES) 10-09 Drug form: l 20:33: INJ, ONCE, Stop date: 10/09/21 14:33:00 BUFFER CHROME rocuronium No Route: IV, M emoria (ANES) 10-09 Drug form: l 20:33: INJ, ONCE, Stop date: 10/09/21 14:33:00 BUFFER CHROME fentaNYL No Route: IV, Mem oria (ANES) 10-09 Drug form: l 20:33: INJ, ONCE, Stop date: 10/09/21 14:33:00 BUFFER CHROME dexamethaso No Route: IV, Memoria ne (ANES) 10-09 Drug form: l 20:33: INJ, ONCE, Stop date: 10/09/21 14:33:00 BUFFER CHROME lidocaine 0 No Route: IV, Me moria (ANES) 10-09 Drug form: l 20:28: INJ, ONCE, Stop date: 10/09/21 14:28:00 BUFFER CHROME lidocaine 2021-0 No Route: IV, Me moria (ANES) 10-09 Drug form: l 20:28: INJ, ONCE, Stop date: 10/09/21 14:28:00 BUFFER CHROME Isolyte S 0 No Route: IV, Me moria PH 7.4 10-09 Total l (ANES) 1000 19:29: Volume: Her jones mL 00 1,000, Start date: 10/09/21 13:29:00 BUFFER CHROME, Stop date: 10/09/21 14:29:00 BUFFER CHROME Isolyte S 0 No Route: IV, Me moria PH 7.4 - Total l (ANES) 1000 19:29: Volume: Her jones mL 00 1,000, Start date: 10/09/21 13:29:00 BUFFER CHROME, Stop date: 10/09/21 14:29:00 BUFFER CHROME Epinephrine 2021-0 Yes Notes: David katarzyna 0.01 MG/ML 2-28 (Same as: l / Lidocaine 18:26: Xylocaine H ermann Hydrochlori 00 w/Epinephr de 10 MG/ML ine) Injectable Solution Epinephrine 2021-0 Yes Notes: David katarzyna 0.01 MG/ML 2-28 (Same as: l / Lidocaine 18:26: Xylocaine H ermann Hydrochlori 00 w/Epinephr de 10 MG/ML ine) Injectable Solution Lidocaine 2021-0 No 1 patch, David katarzyna 0.05 MG/MG 2-28 Route: l Transdermal 15:00: TOP, Sadi n Patch 00 Daily, Drug form: FILM, Start date: 10/09/21 9:00:00 BUFFER CHROME, Duration: 30 day, Stop date: 11/07/21 9:00:00 CDT, 0 Levetiracet 2021-0 No 500 mg, 1 M emoria am 500 MG 2-28 tab, l Oral Tablet 15:00: Route: PO, [place] [Keppra] 00 Drug form: TAB, Q12H, Dosing Weight 156, kg, Start date: 10/09/21 9:00:00 BUFFER CHROME, Duration: 30 day, Stop date: 11/07/21 21:00:00 CDT, 0 Lidocaine 2021-0 No 1 patch, David katarzyna 0.05 MG/MG -28 Route: l Transdermal 15:00: TOP, Asdi n Patch 00 Daily, Drug form: FILM, Start date: 10/09/21 9:00:00 BUFFER CHROME, Duration: 30 day, Stop date: 11/07/21 9:00:00 CDT, 0 Levetiracet 2021-0 No 500 mg, 1 M emoria am 500 MG 2-28 tab, l Oral Tablet 15:00: Route: PO, [place] [Keppra] 00 Drug form: TAB, Q12H, Dosing Weight 156, kg, Start date: 10/09/21 9:00:00 BUFFER CHROME, Duration: 30 day, Stop date: 11/07/21 21:00:00 CDT, 0 Hydromorpho 2021-0 No Notes: David katarzyna ne 2-28 Same as l 13:57: Dilaudid [place] 00 Hydromorpho 2022-0 No Notes: David katarzyna ne - Same as l 13:57: Dilaudid [place] 00 Reglan No Notes: Memoria 2-28 (Same as: l 08:15: Reglan) [place] 00 Dilaudid No Notes: Memoria 2-28 Same as l 08:15: Dilaudid [place] 00 Reglan No Notes: Memoria 2-28 (Same as: l 08:15: Reglan) [place] 00 Dilaudid No Notes: Memoria 2-28 Same as l 08:15: Dilaudid [place] 00 Sodium No 1,000 mL, Memori a Chloride 10-09 Rate: 75 l 0.9% IV 06:49: ml/hr, [place] 1,000 mL 00 Infuse over: 13.3 hr, Route: IV, Dosing Weight 156 kg, Total Volume: 1,000, Start date: 10/09/21 0:49:00 BUFFER CHROME, Duration: 30 day, Stop date: 11/08/21 0:48:00 CDT, BSA: 2.9 m2, 0 Sodium No 1,000 mL, Memori a Chloride - Rate: 75 l 0.9% IV 06:49: ml/hr, [place] 1,000 mL 00 Infuse over: 13.3 hr, Route: IV, Dosing Weight 156 kg, Total Volume: 1,000, Start date: 10/09/21 0:49:00 BUFFER CHROME, Duration: 30 day, Stop date: 11/08/21 0:48:00 CDT, BSA: 2.9 m2, 0 Docusate No Notes: Memoria 2- (Same as: l 03:00: Colace) [place] 00 (Do Not Crush) sennosides, No Notes: David katarzyna CORRECTION - (Same as: l 03:00: Senokot) [place] 00 Saline No Notes: Memoria Flush 0.9% - (Same as: l 03:00: BD [place] 00 Posiflush) Docusate No Notes: Memoria 2-28 (Same as: l 03:00: Colace) [place] 00 (Do Not Crush) sennosides, No Notes: David katarzyna CORRECTION - (Same as: l 03:00: Senokot) [place] 00 Saline No Notes: Memoria Flush 0.9% - (Same as: l 03:00: BD Posiflush) Sodium No 1,000 mL, Memori a Chloride - Rate: 50 l 0.9% IV 01:57: ml/hr, [place] 1,000 mL 00 Infuse over: 20 hr, Route: IV, Dosing Weight 156 kg, Total Volume: 1,000, Start date: 10/08/21 19:57:00 BUFFER CHROME, Duration: 30 day, Stop date: 11/07/21 19:56:00 CDT, BSA: 2.9 m2, 0 Acetaminoph No Notes: Do M emoria en - not exceed l 01:57: 4 gm/day. (Same as: Tylenol) Acetaminoph No Notes: David katarzyna en 325 MG / - (Same as: l Hydrocodone 01:57: [place] Kelly nn Bitartrate 00 325/5) Do 5 MG Oral not exceed Tablet 4gm/day of acetaminop hen. Morphine No Notes: Memoria 2- (Same l 01:57: as:MORPhin e Sulfate) Bisacodyl No Notes: Memori a 2- (Same As: l 01:57: Dulcolax, Bisco-Lax) Ondansetron No Notes: David katarzyna 2-28 [...] PRN Hypertensi on, Start date: 10/08/21 19:57:00 BUFFER CHROME, Duration: 3 doses or times, Stop date: Limited # of times, 0 Saline No Notes: Memoria Flush 0.9% 10-09 (Same as: l 01:57: BD [place] 00 Posiflush) Insulin No Notes: Memoria regular - (Same as: l 01:57: Humulin R) [place] 00 Roll in palms of hands gently; Do not shake vigorously . WASTE: F/P - Black; E - Municipal Trash Bin Stable for 31 days at room temperatur e Expires in days from ____Date Sodium No 1,000 mL, Memori a Chloride 10-09 Rate: 50 l 0.9% IV 01:57: ml/hr, [place] 1,000 mL 00 Infuse over: 20 hr, Route: IV, Dosing Weight 156 kg, Total Volume: 1,000, Start date: 10/08/21 19:57:00 BUFFER CHROME, Duration: 30 day, Stop date: 11/07/21 19:56:00 CDT, BSA: 2.9 m2, 0 Acetaminoph No Notes: Do M emoria en - not exceed l 01:57: 4 gm/day. [place] (Same as: Tylenol) Acetaminoph No Notes: David katarzyna en 325 MG / - (Same as: l Hydrocodone 01:57: [place] Kelly nn Bitartrate 00 325/5) Do 5 MG Oral not exceed Tablet 4gm/day of acetaminop hen. Morphine No Notes: Memoria 2- (Same l 01:57: as:MORPhin [place] 00 e Sulfate) Bisacodyl No Notes: Memori a 2- (Same As: l 01:57: Dulcolax, [place] 00 Bisco-Lax) Ondansetron No Notes: David katarzyna - (Same as: l 01:57: Zofran) [place] 00 MEDICATION WASTE Product Size: 4 mg Product Wasted: ___ mg Hydralazine No Notes: David katarzyna -28 (Same as: l :57: Apresoline ) Push over 5 minutes Labetalol No 10 mg, 2 David katarzyna 2-28 mL, Route: l :57: IVP, Drug form: INJ, Q15Min, Dosing Weight 156, kg, PRN Hypertensi on, Start date: 10/08/21 19:57:00 BUFFER CHROME, Duration: 3 doses or times, Stop date: Limited # of times, 0 Saline No Notes: Memoria Flush 0.9% 10-09 (Same as: l :57: BD Posiflush) Insulin No Notes: Memoria regular - (Same as: l 57: Humulin R) Roll in palms of hands gently; Do not shake vigorously . WASTE: F/P - Black; E - Municipal Trash Bin Stable for 31 days at room temperatur e Expires in days from ____Date Dilaudid No Notes: Memoria 2- Same as l 01:30: Dilaudid Dilaudid No Notes: Memoria - Same as l 01:30: Dilaudid Levetiracet Yes 500 mg = 1 Memoria am 500 MG 2-24 tab, PO, l Oral Tablet 13:52: Q12H, # 60 [place] [Keppra] 00 tab, 0 Refill(s), Pharmacy: [facility] #[id number], 190.5, cm, 10/03/21 6:40:00 BUFFER CHROME, Height, 159.3, kg, 10/03/21 6:40:00 BUFFER CHROME, Weight docusate Yes 2 cap, PO, Mem oria sodium 50 2-24 QPM, X 10 l MG / 13:52: day, # 20 [place] sennosides, 00 cap, 0 CORRECTION 8.6 MG Refill(s), Oral Pharmacy: [facility] #[id number], 190.5, cm, 10/03/21 6:40:00 BUFFER CHROME, Height, 159.3, kg, 10/03/21 6:40:00 BUFFER CHROME, Weight magnesium Yes 8.725 gm = Me moria citrate 2-24 150 ml, l 58.2 MG/ML 13:52: PO, ONCE, He rmann Oral 00 if no Solution bowel movement in couple days, # 300 ml, 0 Refill(s), Pharmacy: [facility] #[id number], 190.5, cm, 10/03/21 6:40:00 BUFFER CHROME, Height, 159.3, kg, 10/03/21 6:40:00 BUFFER CHROME, Weight POLYETHYLEN Yes 17 gm, PO, Memoria E GLYCOL 2-24 Daily, X l 3350 142 13:52: 10 day, # Herm faina MG/ML Oral 00 170 gm, 0 Solution Refill(s), [Miralax] Pharmacy: [facility] #[id number], 190.5, cm, 10/03/21 6:40:00 BUFFER CHROME, Height, 159.3, kg, 10/03/21 6:40:00 BUFFER CHROME, Weight Ondansetron No 4 mg = 1 Me moria 4 MG Oral 2-24 tab, PO, l Tablet 13:52: Q8H, PRN [place] [Zofran] 00 Nausea/vom iting, X 3 day, # 10 tab, 0 Refill(s), Pharmacy: [facility] #[id number], 190.5, cm, 10/03/21 6:40:00 BUFFER CHROME, Height, 159.3, kg, 10/03/21 6:40:00 BUFFER CHROME, Weight Acetaminoph Yes 1 tab, PO, Memoria en 325 MG / 2-24 Q4-6H, PRN l Hydrocodone 13:52: Pain Score [place] Bitartrate 00 4-6, X 5 5 MG Oral day, # 30 Tablet tab, 0 [[place] Refill(s), 5/325] other Levetiracet Yes 500 mg = 1 Memoria am 500 MG 2-24 tab, PO, l Oral Tablet 13:52: Q12H, # 60 [place] [Keppra] 00 tab, 0 Refill(s), Pharmacy: [id number], 190.5, cm, 10/03/21 6:40:00 BUFFER CHROME, Height, 159.3, kg, 10/03/21 6:40:00 BUFFER CHROME, Weight docusate 0 Yes 2 cap, PO, Mem oria sodium 50 2-24 QPM, X 10 l MG / 13:52: day, # 20 [place] sennosides, 00 cap, 0 CORRECTION 8.6 MG Refill(s), Oral Pharmacy: [facility] #[id number], 190.5, cm, 10/03/21 6:40:00 BUFFER CHROME, Height, 159.3, kg, 10/03/21 6:40:00 BUFFER CHROME, Weight magnesium Yes 8.725 gm = Me moria citrate 2-24 150 ml, l 58.2 MG/ML 13:52: PO, ONCE, He rmann Oral 00 if no Solution bowel movement in couple days, # 300 ml, 0 Refill(s), Pharmacy: [facility] #[id number], 190.5, cm, 10/03/21 6:40:00 BUFFER CHROME, Height, 159.3, kg, 10/03/21 6:40:00 BUFFER CHROME, Weight POLYETHYLEN Yes 17 gm, PO, Memoria E GLYCOL 2-24 Daily, X l 3350 142 13:52: 10 day, # Herm faina MG/ML Oral 00 170 gm, 0 Solution Refill(s), [Miralax] Pharmacy: [facility] #[id number], 190.5, cm, 10/03/21 6:40:00 BUFFER CHROME, Height, 159.3, kg, 10/03/21 6:40:00 BUFFER CHROME, Weight Ondansetron No 4 mg = 1 Me moria 4 MG Oral 2-24 tab, PO, l Tablet 13:52: Q8H, PRN [place] [Zofran] 00 Nausea/vom iting, X 3 day, # 10 tab, 0 Refill(s), Pharmacy: [facility] #[id number], 190.5, cm, 10/03/21 6:40:00 BUFFER CHROME, Height, 159.3, kg, 10/03/21 6:40:00 BUFFER CHROME, Weight Acetaminoph 0 Yes 1 tab, PO, Memoria en 325 MG / 2-24 Q4-6H, PRN l Hydrocodone 13:52: Pain Score [place] Bitartrate 00 4-6, X 5 5 MG Oral day, # 30 Tablet tab, 0 [[facility] Refill(s), 5/325] other heparin No Notes: Memoria 5000 2-23 porcine l units/mL 22:00: heparin Sadi n injectable 00 solution heparin No Notes: Memoria 5000 2-23 porcine l units/mL 22:00: heparin Sadi n injectable 00 solution Saline No Notes: Memoria Flush 0.9% 2-23 Same as: l 03:00: BD [place] 00 Posiflush Sterile Levetiracet No Notes: David katarzyna am 500 MG 2-23 (Same l Oral Tablet 03:00: as:Keppra) [place] [Keppra] 00 Saline No Notes: Memoria Flush 0.9% 2-23 Same as: l 03:00: BD [place] 00 Posiflush Sterile Levetiracet No Notes: David katarzyna am 500 MG 2-23 (Same l Oral Tablet 03:00: as:Keppra) [place] [Keppra] 00 Cefazolin No Notes: Memori a 2-23 (Same as l 02:00: Ancef) [place] 00 Cefazolin No Notes: Memori a 2-23 (Same as l 02:00: Ancef) [place] 00 Docusate No Notes: Memoria 2-22 (Same as: l 23:00: Colace) [place] (Do Not Crush) sennosides, No Notes: David katarzyna CORRECTION 2-22 (Same as: l 23:00: Senokot) Famotidine No Notes: Memor ia 20 MG Oral 2-22 (Same as: l Tablet 23:00: Pepcid) [place] 00 Docusate No Notes: Memoria 2-22 (Same as: l 23:00: Colace) [place] (Do Not Crush) sennosides, No Notes: David katarzyna CORRECTION 2-22 (Same as: l 23:00: Senokot) Famotidine 2021-0 No Notes: Memor ia 20 MG Oral 10-03 (Same as: l Tablet 23:00: Pepcid) Hydromorpho 0 No 0.5 mg, Mem oria ne 10-03 Route: l 20:05: IVP, ONCE, Dosing Weight 159.3, kg, Priority: STAT, Start date: 10/03/21 14:05:00 BUFFER CHROME, Stop date: 10/03/21 14:05:00 BUFFER CHROME Hydromorpho 2021-0 No 0.5 mg, Mem oria ne 10-03 Route: l 20:05: IVP, ONCE, Dosing Weight 159.3, kg, Priority: STAT, Start date: 10/03/21 14:05:00 BUFFER CHROME, Stop date: 10/03/21 14:05:00 BUFFER CHROME metoprolol 2021-0 No Route: IV, M emoria (ANES) 10-03 Drug form: l 19:20: INJ, ONCE, Stop date: 10/03/21 13:20:00 BUFFER CHROME metoprolol 2021-0 No Route: IV, M emoria (ANES) 10-03 Drug form: l 19:20: INJ, ONCE, Stop date: 10/03/21 13:20:00 BUFFER CHROME Oxycodone 2021-0 No 10 mg, Memori a Hydrochlori 10-03 Route: PO, l de 5 MG 19:16: Drug form: Herm faina Oral Tablet 00 TAB, Q4H, Dosing Weight 159.3, kg, PRN Pain Score 7-10, Start date: 10/03/21 13:16:00 BUFFER CHROME, Duration: 30 day, Stop date: 11/02/21 13:15:00 CDT Oxycodone 2021-0 No 10 mg, Memori a Hydrochlori 10-03 Route: PO, l de 5 MG 19:16: Drug form: Herm faina Oral Tablet 00 TAB, Q4H, Dosing Weight 159.3, kg, PRN Pain Score 7-10, Start date: 10/03/21 13:16:00 BUFFER CHROME, Duration: 30 day, Stop date: 11/02/21 13:15:00 CDT sugammadex No Route: IV, M emoria (ANES) 2-22 Drug form: l 18:37: SOLN, [place] 00 ONCE, Stop date: 10/03/21 12:37:00 BUFFER CHROME sugammadex No Route: IV, M emoria (ANES) 2-22 Drug form: l 18:37: SOLN, [place] 00 ONCE, Stop date: 10/03/21 12:37:00 BUFFER CHROME ondansetron No Route: IV, Memoria (ANES) 2- Drug form: l 18:22: INJ, ONCE, [place] 00 Stop date: 10/03/21 12:22:00 BUFFER CHROME ondansetron No Route: IV, Memoria (ANES) 2- Drug form: l 18:22: INJ, ONCE, [place] 00 Stop date: 10/03/21 12:22:00 BUFFER CHROME Dexamethaso No Notes: David katarzyna ne 2-22 Give with l 18:00: food. (Same As: Decadron) Dexamethaso No Notes: David katarzyna ne 2-22 Give with l 18:00: food. (Same As: Decadron) Hydralazine No Notes: David katarzyna 2-22 (Same as: l 17:50: Apresoline ) Push over 5 minutes Ondansetron No Notes: David katarzyna 2-22 (Same as: l 17:50: Zofran) MEDICATION WASTE Product Size: 4 mg Product Wasted: ___ mg Acetaminoph No Notes: Do M emoria en 325 MG / -22 not exceed l Hydrocodone 17:50: 4gm/day of [place] Bitartrate 00 acetaminop 10 MG Oral hen. (Same Tablet as: [place] [W[place]wright 325/10) 10/325] Dilaudid No Notes: Memoria 2-22 Same as l 17:50: Dilaudid [place] Benadryl No Notes: Memoria 2-22 (Same as: l 17:50: Benadryl) [place] 00 phenol No Notes: Memoria 2-22 Chlorasept l 17:50: ic [place] (Same as: Chlorasept ic, Sore Throat [place]) WASTE: F/P - Black; E - Municipal Trash Bin Bisacodyl No Notes: Memori a 2-22 (Same As: l 17:50: Dulcolax, Bisco-Lax) Robaxin No Notes: Memoria 2-22 (Same l 17:50: as:Robaxin ) Melatonin 3 No Notes: David katarzyna MG Extended - (Same as: l Release 17:50: Melatonin) Tylenol No Notes: Do Memor ia 2-22 [...] Rate: 100 l 0.9% IV 17:50: ml/hr, [place] 1,000 mL 00 Infuse over: 10 hr, Route: IV, Dosing Weight 159.3 kg, Total Volume: 1,000, Start date: 10/03/21 11:50:00 BUFFER CHROME, Duration: 30 day, Stop date: 11/02/21 11:49:00 CDT, BSA: 2.93 m2, 0 Labetalol No 10 mg, 2 David katarzyna 2-22 mL, Route: l 17:50: IVP, Drug form: INJ, Q15Min, Dosing Weight 159.3, kg, PRN Hypertensi on, Start date: 10/03/21 11:50:00 BUFFER CHROME, Duration: 3 doses or times, Stop date: 10/04/21 0:00:00 BUFFER CHROME, 0 Sodium No 1,000 mL, Memori a Chloride 2-22 Rate: 100 l 0.9% IV 17:50: ml/hr, [place] 1,000 mL 00 Infuse over: 10 hr, Route: IV, Dosing Weight 159.3 kg, Total Volume: 1,000, Start date: 10/03/21 11:50:00 BUFFER CHROME, Duration: 30 day, Stop date: 11/02/21 11:49:00 CDT, BSA: 2.93 m2, 0 Labetalol No 10 mg, 2 David katarzyna 2-22 mL, Route: l 17:50: IVP, Drug form: INJ, Q15Min, Dosing Weight 159.3, kg, PRN Hypertensi on, Start date: 10/03/21 11:50:00 BUFFER CHROME, Duration: 3 doses or times, Stop date: 10/04/21 0:00:00 BUFFER CHROME, 0 Hydralazine No Notes: David katarzyna 2-22 [...] 10 MG Oral hen. (Same Tablet as: [place] [W[place] 325/10) 10/325] Dilaudid No Notes: Memoria 2-22 Same as l 17:50: Dilaudid Benadryl No Notes: Memoria 2-22 (Same as: l 17:50: Benadryl) [place] 00 phenol No Notes: Memoria 2-22 Chlorasept l 17:50: ic [place] (Same as: Chlorasept ic, Sore Throat [place]) WASTE: F/P - Black; E - Municipal Trash Bin Bisacodyl No Notes: Memori a 2- (Same As: l 17:50: Dulcolax, Bisco-Lax) Robaxin No Notes: Memoria 2- (Same l 17:50: as:Robaxin ) Melatonin 3 No Notes: David katarzyna MG Extended 10-03 (Same as: l Release 17:50: Melatonin) Herm Tylenol No Notes: Do Memor ia 10-03 not exceed l 17:50: 4 gm/day. [place] (Same as: Tylenol) Reglan No Notes: Memoria - (Same as: l 17:50: Reglan) Phenergan No Notes: Do Mem oria 10-03 not give l 17:50: IV push. (Same as: Phenergan) Saline No Notes: Memoria Flush 0.9% 10-03 Same as: l 17:50: BD Posiflush Sterile lidocaine No Route: IV, Me moria (ANES) 10-03 Drug form: l 16:45: INJ, ONCE, Stop date: 10/03/21 10:45:00 BUFFER CHROME rocuronium No Route: IV, M emoria (ANES) 10-03 Drug form: l 16:45: INJ, ONCE, Stop date: 10/03/21 10:45:00 BUFFER CHROME dexamethaso No Route: IV, Memoria ne (ANES) 10-03 Drug form: l 16:45: INJ, ONCE, Stop date: 10/03/21 10:45:00 BUFFER CHROME lidocaine No Route: IV, Me moria (ANES) 10-03 Drug form: l 16:45: INJ, ONCE, Stop date: 10/03/21 10:45:00 BUFFER CHROME rocuronium No Route: IV, M emoria (ANES) 10-03 Drug form: l 16:45: INJ, ONCE, Stop date: 10/03/21 10:45:00 BUFFER CHROME dexamethaso No Route: IV, Memoria ne (ANES) 2-22 Drug form: l 16:45: INJ, ONCE, Stop date: 10/03/21 10:45:00 BUFFER CHROME phenylephri No Route: IV, Memoria ne (ANES) 2-22 Drug form: l 16:40: INJ, ONCE, Stop date: 10/03/21 10:40:00 BUFFER CHROME phenylephri No Route: IV, Memoria ne (ANES) 2-22 Drug form: l 16:40: INJ, ONCE, Stop date: 10/03/21 10:40:00 BUFFER CHROME Hydralazine No Notes: David katarzyna 2-22 (Same as: l 16:37: Apresoline ) Push over 5 minutes Labetalol No 10 mg, 2 David katarzyna 2-22 mL, Route: l 16:37: IVP, Drug form: INJ, Q5Min, Dosing Weight 159.3, kg, PRN Elevated BP, Start date: 10/03/21 10:37:00 BUFFER CHROME, Duration: 5 doses or times, Stop date: 10/04/21 0:00:00 BUFFER CHROME, 0 Oxycodone No Notes: Memori a Hydrochlori 2-22 (Same as: l de 5 MG 16:37: Roxicodone Herm faina Oral Tablet ) Hydromorpho No Notes: David katarzyna ne 2-22 Same as l 16:37: Dilaudid Flumazenil No Notes: Memor ia 2-22 (Same as: l 16:37: Romazicon) Naloxone No Notes: Memoria 2-22 Same as l 16:37: Narcan Ondansetron No Notes: David katarzyna 2-22 (Same as: l 16:37: Zofran) MEDICATION WASTE Product Size: 4 mg Product Wasted: ___ mg Hydralazine No Notes: David katarzyna 2-22 (Same as: l 16:37: Apresoline [place] ) Push over 5 minutes Labetalol 2022-0 No 10 mg, 2 David katarzyna 2-22 mL, Route: l 16:37: IVP, Drug form: INJ, Q5Min, Dosing Weight 159.3, kg, PRN Elevated BP, Start date: 10/03/21 10:37:00 BUFFER CHROME, Duration: 5 doses or times, Stop date: 10/04/21 0:00:00 BUFFER CHROME, 0 Oxycodone No Notes: Memori a Hydrochlori 2-22 (Same as: l de 5 MG 16:37: Roxicodone Herm faina Oral Tablet ) Hydromorpho No Notes: David katarzyna ne 2-22 Same as l 16:37: Dilaudid Flumazenil No Notes: Memor ia 2-22 (Same as: l 16:37: Romazicon) Naloxone No Notes: Memoria 2-22 Same as l 16:37: Narcan Ondansetron No Notes: David katarzyna 2-22 (Same as: l 16:37: Zofran) MEDICATION WASTE Product Size: 4 mg Product Wasted: ___ mg propofol No Route: IV, Mem oria (ANES) 2-22 Drug form: l 16:35: INJ, ONCE, Stop date: 10/03/21 10:35:00 BUFFER CHROME fentaNYL No Route: IV, Mem oria (ANES) 2-22 Drug form: l 16:35: INJ, ONCE, Stop date: 10/03/21 10:35:00 BUFFER CHROME propofol No Route: IV, Mem oria (ANES) 2-22 Drug form: l 16:35: INJ, ONCE, Stop date: 10/03/21 10:35:00 BUFFER CHROME fentaNYL No Route: IV, Mem oria (ANES) 2-22 Drug form: l 16:35: INJ, ONCE, Stop date: 10/03/21 10:35:00 BUFFER CHROME midazolam No Route: IV, Me moria (ANES) 2-22 Drug form: l 16:24: SOLN, [place] 00 ONCE, Stop date: 10/03/21 10:24:00 BUFFER CHROME ceFAZolin No Route: IV, Me moria (ANES) 10-03 Drug form: l 16:24: INJ, ONCE, [place] 00 Stop date: 10/03/21 10:24:00 BUFFER CHROME midazolam No Route: IV, Me moria (ANES) 10-03 Drug form: l 16:24: SOLN, ONCE, Stop date: 10/03/21 10:24:00 BUFFER CHROME ceFAZolin No Route: IV, Me moria (ANES) 10-03 Drug form: l 16:24: INJ, ONCE, [place] 00 Stop date: 10/03/21 10:24:00 BUFFER CHROME levETIRAcet No Route: IV, Memoria am (ANES) 10-03 Drug form: l 100 mg 16:20: INJ, Start date: 10/03/21 10:20:00 BUFFER CHROME, Stop date: 10/03/21 11:20:00 BUFFER CHROME levETIRAcet No Route: IV, Memoria am (ANES) 10-03 Drug form: l 100 mg 16:20: INJ, Start Kelly date: 10/03/21 10:20:00 BUFFER CHROME, Stop date: 10/03/21 11:20:00 BUFFER CHROME propofol No Route: IV, Mem oria (ANES) 10 10-03 Drug form: l mg 15:26: INJ, Start date: 10/03/21 9:26:00 BUFFER CHROME, Stop date: 10/03/21 10:26:00 BUFFER CHROME propofol No Route: IV, Mem oria (ANES) 10 10-03 Drug form: l mg 15:26: INJ, Start date: 10/03/21 9:26:00 BUFFER CHROME, Stop date: 10/03/21 10:26:00 BUFFER CHROME Isolyte S No Route: IV, Me moria PH 7.4 10-03 Total l (ANES) 1000 14:26: Volume: Her jones mL 00 1,000, Start date: 10/03/21 8:26:00 BUFFER CHROME, Stop date: 10/03/21 9:26:00 BUFFER CHROME Isolyte S No Route: IV, Me moria PH 7.4 2- Total l (ANES) 1000 14:26: Volume: Her jones mL 00 1,000, Start date: 10/03/21 8:26:00 BUFFER CHROME, Stop date: 10/03/21 9:26:00 BUFFER CHROME Isolyte S No Notes: Memori a PH 7.4 10-03 (Same as: l 1,000 mL 12:35: Isolyte S Herm faina 00 PH7.4, Normosol-R PH 7.4, Plasma-Lyt e A ) Acetaminoph No 1,000 mg, M emoria en 10-03 Route: PO, l 12:35: Drug form: [place] 00 TAB, PRE OP, Dosing Weight 160.3, kg, Priority: NOW, Start date: 10/03/21 6:35:00 BUFFER CHROME, Duration: 1 doses or times Isolyte S No Notes: Memori a PH 7.4 10-03 (Same as: l 1,000 mL 12:35: Isolyte S Herm faina 00 PH7.4, Normosol-R PH 7.4, Plasma-Lyt e A ) Acetaminoph No 1,000 mg, M emoria en 10-03 Route: PO, l 12:35: Drug form: [place] 00 TAB, PRE OP, Dosing Weight 160.3, kg, Priority: NOW, Start date: 10/03/21 6:35:00 BUFFER CHROME, Duration: 1 doses or times NS + KCL No Notes: Memoria 20mEq/L 2-22 PREMIX IV l 1000ml 12:00: - Do Not [place] (Premix) 00 Alter 1,000 mL WASTE: F/P - Sink; E - Municipal Trash Bin ceFAZolin + No Notes: David katarzyna sterile 10-03 (Same As: l water 30 mL 12:00: Ancef, Herm faina 00 Kefzol) MEDICATION WASTE Product Size: 1000 mg Product Wasted: ___ mg NS + KCL No Notes: Memoria 20mEq/L 2-22 PREMIX IV l 1000ml 12:00: - Do Not [place] (Premix) 00 Alter 1,000 mL WASTE: F/P - Sink; E - Municipal Trash Bin ceFAZolin + No Notes: David katarzyna sterile -22 (Same As: l water 30 mL 12:00: AncefAnya faina 00 Kefzol) MEDICATION WASTE Product Size: 1000 mg Product Wasted: ___ mg Acetaminoph No 1 tab, PO, Memoria en 300 MG / 2-21 PRN, PRN l Codeine 18:02: Headache Sadi n Phosphate 00 1-5, 0 30 MG Oral Refill(s) Tablet [Tylenol with Codeine #3] Zofran 0 No PRN, 0 Memoria 2-21 Refill(s) l 18:02: [place] 00 Acetaminoph 2021-0 No 1 tab, PO, Memoria en 300 MG / 2-21 PRN, PRN l Codeine 18:02: Headache Sadi n Phosphate 00 1-5, 0 30 MG Oral Refill(s) Tablet [Tylenol with Codeine #3] Zofran 0 No PRN, 0 Memoria 2-21 Refill(s) l 18:02: [place] 00 Sodium 2021-0 No 250 mL, Memoria Chloride 2-21 Rate: To l 0.9% 17:06: prime line [place] (titrate) 00 and flush 250 mL remaining blood products., Dosing Weight 160.3, kg, Route: IV, Total Volume: 250, Start Date: 10/02/21 11:06:00 BUFFER CHROME, Duration: 1 day, Stop date: 10/03/21 11:05:00 BUFFER CHROME, Replace Every: 24 hr, 0 Sodium 2021-0 No 250 mL, Memoria Chloride 2-21 Rate: To l 0.9% 17:06: prime line [place] (titrate) 00 and flush 250 mL remaining blood products., Dosing Weight 160.3, kg, Route: IV, Total Volume: 250, Start Date: 10/02/21 11:06:00 BUFFER CHROME, Duration: 1 day, Stop date: 10/03/21 11:05:00 BUFFER CHROME, Replace Every: 24 hr, 0 Acetaminoph No 1 tab, David katarzyna en 325 MG / 9-30 Route: PO, l Hydrocodone 12:17: Drug Form: [place] Bitartrate 00 TAB, 5 MG Oral Dosing Tablet Weight 139.409, kg, ONCE, STAT, Start date: 05/11/21 7:17:00 CDT, Stop date: 05/11/21 7:17:00 CDT Acetaminoph 2021-0 No 1 tab, David katarzyna en 325 MG / 05-11 Route: PO, l Hydrocodone 12:17: Drug Form: [place] Bitartrate 00 TAB, 5 MG Oral Dosing Tablet Weight 139.409, kg, ONCE, STAT, Start date: 05/11/21 7:17:00 CDT, Stop date: 05/11/21 7:17:00 CDT Acetaminoph 2021-0 No 1,000 mg, M emoria en 05-11 Route: PO, l 07:46: ONCE, [place] 00 Dosing Weight 139.409, kg, Start date: 05/11/21 2:46:00 CDT, Stop date: 05/11/21 2:46:00 CDT Acetaminoph 2021-0 No 1,000 mg, M emoria en 05-11 Route: PO, l 07:46: ONCE, [place] 00 Dosing Weight 139.409, kg, Start date: 05/11/21 2:46:00 CDT, Stop date: 05/11/21 2:46:00 CDT Iohexol 2021-0 No 100 mL, Memoria 05-11 Route: l 07:23: IVP, Drug [place] 00 Form: SOLN, Dosing Weight 139.409, kg, ONCALL, STAT, Start date: 05/11/21 2:23:00 CDT, Duration: 1 doses or times, Dose = 2.2ml/kg, Max dose = 100ml -- "To be infused by Radiology Staff ONLY" Iohexol 2021-0 No 100 mL, Memoria 05-11 Route: l 07:23: IVP, Drug [place] 00 Form: SOLN, Dosing Weight 139.409, kg, ONCALL, STAT, Start date: 05/11/21 2:23:00 CDT, Duration: 1 doses or times, Dose = 2.2ml/kg, Max dose = 100ml -- "To be infused by Radiology Staff ONLY" ProAir HFA 2020-0 Yes INHALE 2 UT 108 (90 8-[facility] 00:00: EVERY 6 MCG/ACT 00 HOURS inhaler [...] eded} e 300-30 00 MG Acetaminoph Acetaminoph No 1{table Acetaminop en-Codeine en-Codeine 8-20 t_as_ne [...] pirit one) one) 00:00: - [facility] Kenalog Kenalog 2019-08 No 40mg Common (Triamcinol (Triamcinol 0-12 S pirit one) one) 00:00: - [facility] Kenalog Kenalog 2020-1 No 40mg Common (Triamcinol (Triamcinol 0-12 S pirit one) one) 00:00: - [facility] Kenalog Kenalog 2020-1 No 40mg Common (Triamcinol (Triamcinol 0-12 S pirit one) one) 00:00: - [facility] Kenalog Kenalog 2020-1 No 40mg Common (Triamcinol (Triamcinol 0-12 S pirit one) one) 00:00: - [facility] Amoxicillin Amoxicillin 2019-1 2020- No 1{table BID Amoxicilli -Pot -Pot 0-12 06-02 t} n-Pot Clavulanate Clavulanate 00:00: 00:00 Clavulanat 875-125 MG 875-125 MG 00 :00 e 875-125 MG Promethazin Promethazin 2019-0 2020- No Norah 1 tablet Common e HCl e HCl 28 05-03 [place] as needed Spirit 00:00: 00:00 for n/v - [facility] 00 [facility]00 [facility] Bupivicaine Bupivicaine 2020-0 No 4mL Common [place] 4-06 Spirit 00:00: - [facility] Kenalog Kenalog 2020-0 No 40mg Common (Triamcinol (Triamcinol 4-06 S pirit one) one) 00:00: - [facility] Bupivicaine Bupivicaine 2020-0 No 4mL Common [place] 4-06 Spirit 00:00: - [facility] Kenalog Kenalog 2020-0 No 40mg Common (Triamcinol (Triamcinol 4-06 S pirit one) one) 00:00: - [facility] Bupivicaine Bupivicaine 2020-0 No 4mL Common [place] 4-06 Spirit 00:00: - [facility] Kenalog Kenalog 2020-0 No 40mg Common (Triamcinol (Triamcinol 4-06 S pirit one) one) 00:00: - [facility] Bupivicaine Bupivicaine 2020-0 No 4mL Common [place] 4-06 Spirit 00:00: - [facility] Kenalog Kenalog 2020-0 No 40mg Common (Triamcinol (Triamcinol 4-06 S pirit one) one) 00:00: - [facility] Bupivicaine Bupivicaine 2020-0 No 4mL Common [place] 4-06 Spirit 00:00: - [facility] Kenalog Kenalog 2019-0 No 40mg Common (Triamcinol (Triamcinol 4-06 S pirit one) one) 00:00: - [facility] ondansetron 0 Yes [id number] 4mg Take 1 [facility] (ZOFRAN 3-11 tablet by ity of ODT) 4 mg 00:00: mouth [place] disintegrat 00 every 8 Medic al ing tablet (eight) Branch hours as needed for Nausea and Vomiting (N/V). benzonatate 2019-0 Yes [id number] 200mg Take 1 [facility] 200 mg 3-11 capsule by ity of capsule 00:00: mouth 3 [place] 00 (three) Medical times Branch daily as needed for Cough for up to 20 doses. ibuprofen 2019-0 Yes [id number] 600mg Take 1 U nivers 600 mg [...] if headache persists. Ondansetron Ondansetron 2017-08 Yes JENNYNAE 1 Take 1 UT HCl - 4 [...] Pain Score 4-6, Start date: 07/09/18 16:24:00 BUFFER CHROME Oxycodone 2017-08 No 5 mg, Memoria Hydrochlori 09-08 Route: PO, l de 5 MG 22:24: Drug form: Herm faina Oral Tablet 00 TAB, ONCE, Dosing Weight 139.409, kg, PRN Pain Score 4-6, Start date: 07/09/18 16:24:00 BUFFER CHROME Promethazin 2017-08 No Notes: Do M emoria [...] Memori a 09-08 final l 21:26: concentrat 00 ion 5 mg/mL Acetaminoph 2017-08 No Notes: Max Memoria en 09-08 acetaminop l 21:26: hen 4000 [place] 00 mg/day (4 gm/day). (Same as: Tylenol Extra Strength) Fentanyl 2017-08 No Notes: Memoria 09-08 (Same as: l 21:26: Sublimaze) [place] 00 Preservati ve free. Hydralazine 2017-08 No Notes: David katarzyna 09-08 (Same as: l 21:26: Apresoline ) Push over 5 minutes Labetalol 2017-08 No 10 mg, 2 David katarzyna 09-08 mL, Route: l 21:26: IVP, Drug form: INJ, Q5Min, Dosing Weight 139.409, kg, PRN Elevated BP, Start date: 07/09/18 15:26:00 BUFFER CHROME, Duration: 5 doses or times, Stop date: Limited # of times Insulin 2017-08 No Notes: Memoria Lispro 09-08 (Same as: l 21:26: Humalog ) Roll in palms of hands gently; Do not shake `vigorousl y. "Single Patient Use Only " WASTE: F/P - Black; E - Municipal Trash Bin Stable for 28 days at room temperatur e. Expires in days from ____Date Promethazin 2017-08 No Notes: Do M emoria e 09-08 not give l 21:26: IV push. (Same as: Phenergan) Lorazepam 2017-08 No Notes: Memori a 09-08 (Same as: l 21:26: Ativan) Dexamethaso 2017-08 No Notes: David katarzyna ne 09-08 Concentrat l 21:26: ion: [place] 00 4mg/ml Racepinephr 2017-08 No Notes: Daivd katarzyna ine 09-08 (racepinep l 21:26: hrine [...] en 09-08 acetaminop l 21:26: hen 4000 mg/day (4 gm/day). (Same as: Tylenol Extra [...] PRN Elevated BP, Start date: 07/09/18 15:26:00 BUFFER CHROME, Duration: 5 doses or times, Stop date: [...] 21:19: INJ, ONCE, Stop date: 07/09/18 15:19:00 BUFFER CHROME ondansetron 2017-08 No Route: IV, Memoria (ANES) 09-08 Drug form: l 21:19: INJ, ONCE, Stop date: 07/09/18 15:19:00 BUFFER CHROME ceFAZolin 2017-08 No Route: IV, Me moria (ANES) 09-08 Drug form: l 20:43: INJ, ONCE, Stop date: 07/09/18 14:43:00 BUFFER CHROME lidocaine 2017-08 No Route: IV, Me moria (ANES) 09-08 Drug form: l 20:43: INJ, ONCE, Stop date: 07/09/18 14:43:00 BUFFER CHROME propofol 2017-08 No Route: IV, Mem oria (ANES) 09-08 Drug form: l 20:43: INJ, ONCE, Stop date: 07/09/18 14:43:00 BUFFER CHROME fentaNYL 2017-08 No Route: IV, Mem oria (ANES) 09-08 Drug form: l 20:43: INJ, ONCE, Stop date: 07/09/18 14:43:00 BUFFER CHROME ceFAZolin 2017-08 No Route: IV, Me moria (ANES) 09-08 Drug form: l 20:43: INJ, ONCE, Stop date: 07/09/18 14:43:00 BUFFER CHROME lidocaine 2017-08 No Route: IV, Me moria (ANES) 09-08 Drug form: l 20:43: INJ, ONCE, Stop date: 07/09/18 14:43:00 BUFFER CHROME propofol 2017-08 No Route: IV, Mem oria (ANES) 09-08 Drug form: l 20:43: INJ, ONCE, Stop date: 07/09/18 14:43:00 BUFFER CHROME fentaNYL 2017-08 No Route: IV, Mem oria (ANES) 09-08 Drug form: l 20:43: INJ, ONCE, Stop date: 07/09/18 14:43:00 BUFFER CHROME metoclopram 2017-08 No Route: IV, Memoria debbie (ANES) 09-08 Drug form: l 20:38: INJ, ONCE, Stop date: 07/09/18 14:38:00 BUFFER CHROME famotidine 2017-08 No Route: IV, M emoria (ANES) 09-08 Drug form: l 20:38: INJ, ONCE, Stop date: 07/09/18 14:38:00 BUFFER CHROME dexamethaso 2017-08 No Route: IV, Memoria ne (ANES) 09-08 Drug form: l 20:38: INJ, ONCE, Stop date: 07/09/18 14:38:00 BUFFER CHROME midazolam 2017-08 No Route: IV, Me moria (ANES) 09-08 Drug form: l 20:38: SOLN, [place] 00 ONCE, Stop date: 07/09/18 14:38:00 BUFFER CHROME metoclopram 2017-08 No Route: IV, Memoria debbie (ANES) 09-08 Drug form: l 20:38: INJ, ONCE, Stop date: 07/09/18 14:38:00 BUFFER CHROME famotidine 2017-08 No Route: IV, M emoria (ANES) 09-08 Drug form: l 20:38: INJ, ONCE, Stop date: 07/09/18 14:38:00 BUFFER CHROME dexamethaso 2017-08 No Route: IV, Memoria ne (ANES) 09-08 Drug form: l 20:38: INJ, ONCE, Stop date: 07/09/18 14:38:00 BUFFER CHROME midazolam 2017-08 No Route: IV, Me moria (ANES) 09-08 Drug form: l 20:38: [place] DAVE 00 ONCE, Stop date: 07/09/18 14:38:00 BUFFER CHROME Lactated 2017-08 No Route: IV, Mem oria Ringers 09-08 Total l Injection 19:45: Volume: Kelly nn IV (ANES) 00 1,000, 1000 mL Start date: 07/09/18 13:45:00 BUFFER CHROME, Stop date: 07/09/18 14:45:00 BUFFER CHROME Lactated 2017-08 No Route: IV, Mem oria Ringers 28 Total l Injection 19:45: Volume: Kelly nn IV (ANES) 00 1,000, 1000 mL Start date: 07/09/18 13:45:00 BUFFER CHROME, Stop date: 07/09/18 14:45:00 BUFFER CHROME Famotidine 2017-08 No Notes: Memor ia 40 MG Oral 09-08 (Same as: l Tablet 19:37: Pepcid) [place] [Pepcid] 00 Famotidine 2017-08 No Notes: Memor ia 40 MG Oral 09-08 (Same as: l Tablet 19:37: Pepcid) [place] [Pepcid] 00 Celebrex 2017-08 No 200 mg, Memori a 09-08 Route: PO, l 19:00: Drug form: [place] 00 MARITZA CALIXTO, Dosing Weight 140.909, kg, Start date: 07/09/18 13:00:00 BUFFER CHROME, Duration: 30 day, Stop date: 08/08/18 12:59:00 BUFFER CHROME Lidocaine 2017-08 No Notes: Memori a Hydrochlori 09-08 Preservati l de 10 MG/ML 19:00: ve free. He rmann Injectable 00 (Same as: Solution Xylocaine MPF) Famotidine 2017-08 No Notes: [facility] 09-08 (Same as: l 19:00: Pepcid) [place] 00 Can be dilute in 5-10cc NS IVP: Slow IV push over at least 2 minutes. Celebrex 2017-08 No 200 mg, Memori a 09-08 Route: PO, l 19:00: Drug form: [place] 00 MARITZA CALIXTO, Dosing Weight 140.909, kg, Start date: 07/09/18 13:00:00 BUFFER CHROME, Duration: 30 day, Stop date: 08/08/18 12:59:00 BUFFER CHROME Lidocaine 2017-08 No Notes: Memori a Hydrochlori [...] kg, Priority: STAT, Start date: 07/09/18 12:53:00 BUFFER CHROME, Stop date: 07/09/18 12:53:00 BUFFER CHROME Zofran 2017-08 No 4 mg, Memoria 09-08 Route: l 18:53: IVP, Drug [place] 00 form: INJ, ONCE, Dosing Weight 139.409, kg, Priority: STAT, Start date: 07/09/18 12:53:00 BUFFER CHROME, Stop date: 07/09/18 12:53:00 BUFFER CHROME Tylenol 2017-08 No 1,000 mg, [facility] 09-08 Route: PO, l 18:20: ONCE, [place] Dosing Weight 140.909, kg, Priority: STAT, Start date: 07/09/18 12:20:00 BUFFER CHROME, Stop date: 07/09/18 12:20:00 BUFFER CHROME Tylenol 2017-08 No 1,000 mg, [facility] 09-08 Route: PO, l 18:20: ONCE, [place] 00 Dosing Weight 140.909, kg, Priority: STAT, Start date: 07/09/18 12:20:00 BUFFER CHROME, Stop date: 07/09/18 12:20:00 BUFFER CHROME Insulin 2017-08 No Notes: [facility] Lispro 09-08 [...] 09-08 Rate: 25 l 0.0014 18:18: ml/hr, [place] MEQ/ML / 00 Infuse Potassium over: 40 Chloride hr, Route: 0.004 IV, Dosing MEQ/ML / Weight Sodium 140.909 Chloride kg, Total 0.103 Volume: MEQ/ML / 1,000, Sodium Start Lactate date: 0.028 07/09/18 MEQ/ML 12:18:00 Injectable BUFFER CHROME, Solution Duration: 30 day, Stop date: 08/08/18 12:17:00 BUFFER CHROME, 2.75, m2 Insulin 2017-08 No Notes: [facility] Lispro 09-08 (Same as: l 18:18: Humalog ) [place] 00 Roll in palms of hands gently; Do not shake `vigorousl y. "Single Patient Use Only " WASTE: F/P - Black; E - Leap Medical Trash Bin Stable for 28 days at room temperatur e. Expires in days from ____Date Calcium 2017-08 No 1,000 mL, [facility] Chloride 09-08 Rate: 25 l 0.0014 18:18: ml/hr, [place] MEQ/ML / 00 Infuse Potassium over: 40 Chloride hr, Route: 0.004 IV, Dosing MEQ/ML / Weight Sodium 140.909 Chloride kg, Total 0.103 Volume: MEQ/ML / 1,000, Sodium Start Lactate date: 0.028 07/09/18 MEQ/ML 12:18:00 Injectable BUFFER CHROME, Solution Duration: 30 day, Stop date: 08/08/18 12:17:00 BUFFER CHROME, 2.75, m2 ceFAZolin + 2017-08 No Notes: David katarzyna sterile 09-08 (Same As: l water 30 mL 12:00: Ancef, Herm faina 00 Kefzol) MEDICATION WASTE Product Size: 1000 mg Product Wasted: ___ mg Lactated 2017-08 No 1,000 mL, David katarzyna Ringers 09-08 Rate: KVO l Injection 12:00: rate, [place] IV 1,000 mL 00 Route: IV, Dosing Weight 140.909 kg, Total Volume: 1,000, Start date: 07/09/18 6:00:00 BUFFER CHROME, Duration: 30 day, Stop date: 08/08/18 5:59:00 BUFFER CHROME, 2.75, m2 ceFAZolin + 2017-08 No Notes: David katarzyna sterile 09-08 (Same As: l water 30 mL 12:00: Ancef, Herm faina 00 Kefzol) MEDICATION WASTE Product Size: 1000 mg Product Wasted: ___ mg Lactated 2017-08 No 1,000 mL, David katarzyna Ringers 09-08 Rate: KVO l Injection 12:00: rate, [place] IV 1,000 mL 00 Route: IV, Dosing Weight 140.909 kg, Total Volume: 1,000, Start date: 07/09/18 6:00:00 BUFFER CHROME, Duration: 30 day, Stop date: 08/08/18 5:59:00 BUFFER CHROME, 2.75, m2 Norvasc 2017-08 Yes See Memoria 09-07 Instructio l 18:43: ns, PO [place] 00 Daily, 0 Refill(s) Norvasc 2017-08 Yes See Memoria 09-07 Instructio l 18:43: ns, PO [place] 00 Daily, 0 Refill(s) Amlodipine 2017-08 Yes See Memoria 09-07 Instructio l 18:42: ns, PO [place] 00 Daily, 0 Refill(s) Amlodipine 2017-08 Yes See Memoria 09-07 Instructio l 18:42: ns, PO [place] 00 Daily, 0 Refill(s) amLODIPine amLODIPine 2017-08 [...] tab, 0 [Tylenol Refill(s) with Codeine #3] gabapentin 2017-08 Yes 300 mg = 1 [...] l 11:34: as:MORPhin [place] 00 e Sulfate) Morphine 2017-08 No Notes: Memoria 0-05 (Same l 11:34: as:MORPhin [place] 00 e Sulfate) Dexamethaso 2017-08 No 8 mg, Memor ia ne 0-05 Route: IM, l 11:01: ONCE, Dosing Weight 144.091, kg, Priority: STAT, Start date: 05/16/18 6:01:00 CDT, Stop date: 05/16/18 6:01:00 CDT Zofran ODT 2018-1 No 4 mg, Memori a 0-05 Route: PO, l 11:01: Drug form: Davidson 00 TABDIS, ONCE, Dosing Weight 144.091, kg, Priority: STAT, Start date: 05/16/18 6:01:00 CDT, Stop date: 05/16/18 6:01:00 CDT Morphine 2017- No 8 mg, Memoria 0-05 Route: IM, l 11:01: ONCE, Dosing Weight 144.091, kg, Priority: STAT, Start date: 05/16/18 6:01:00 CDT, Stop date: 05/16/18 6:01:00 CDT Dexamethaso 2017-1 No 8 mg, Memor ia ne 0-05 Route: IM, l 11:01: ONCE, Dosing Weight 144.091, kg, Priority: STAT, Start date: 05/16/18 6:01:00 CDT, Stop date: 05/16/18 6:01:00 CDT Zofran ODT 2017-1 No 4 mg, Memori a 0-05 Route: PO, l 11:01: Drug form: TABDIS, ONCE, Dosing Weight 144.091, kg, Priority: STAT, Start date: 05/16/18 6:01:00 CDT, Stop date: 05/16/18 6:01:00 CDT Morphine 2017-1 No 8 mg, Memoria 0-05 Route: IM, l 11:01: ONCE, Dosing Weight 144.091, kg, Priority: STAT, Start date: 05/16/18 6:01:00 CDT, Stop date: 05/16/18 6:01:00 CDT No known [facility] Zofran Zofran Yes Norah 1 tablet Commo n [place] as needed [facility] Losartan Losartan Yes Norah 1 tablet C ommon Potassium-H Potassium-H [place] [facility] Hydrocodone Hydrocodone Yes Norah 1 tablet Common -Acetaminop -Acetaminop [place] as needed [facility] hen hen - [facility] Adderall XR Adderall XR Yes Norah 1 capsule Common [place] in the [facility] morning [facility] Omeprazole Omeprazole Yes Norah 1 capsule Common [place] 30 minutes [facility] before - [facility] morning [facility] Dicyclomine Dicyclomine Yes Norah 1 tablet Common HCl HCl [place] [facility] - [facility] Omeprazole Omeprazole No QD Omeprazole 40 [...] Date Status Commen ts Source Name Name influenza virus 2022-05-19 Completed [facility] [place] vaccine, inactivated 15:57:00 Influenza, 2022-05-19 Completed [facility] injectable, 00:00:00 quadrivalent (afluria, fluzone) Influenza, 2022-05-19 Completed [facility] injectable, 00:00:00 quadrivalent (afluria, fluzone) Influenza, [...] [facility]00 (PURPLE-DILUTE) Kenalog Kenalog 2020-05-23 Completed [facility] - (Triamcinolone) (Triamcinolone) 11:35:00 [facility] Kenalog Kenalog 2020-05-23 Completed [facility] - (Triamcinolone) (Triamcinolone) 11:35:00 [facility] Kenalog Kenalog 2020-05-23 Completed [facility] - (Triamcinolone) (Triamcinolone) 11:35:00 [facility] Kenalog Kenalog 2020-05-23 Completed [facility] - (Triamcinolone) (Triamcinolone) 11:35:00 [facility] Kenalog Kenalog 2020-05-23 Completed [facility] - (Triamcinolone) (Triamcinolone) 11:35:00 [facility] Kenalog Kenalog 2020-05-23 Completed [facility] - (Triamcinolone) (Triamcinolone) 11:35:00 [facility] Kenalog Kenalog 2020-05-23 Completed [facility] - (Triamcinolone) (Triamcinolone) 11:35:00 [facility] Bupivicaine [place] Bupivicaine [place] 2019-11-16 Completed [facility] - 11:23:00 [facility] Bupivicaine [place] Bupivicaine [place] 2019-11-16 Completed [facility] - 11:23:00 [facility] Bupivicaine [place] Bupivicaine [place] 2019-11-16 Completed [facility] - 11:23:00 [facility] Bupivicaine [place] Bupivicaine [place] 2019-11-16 Completed [facility] - 11:23:00 [facility] Bupivicaine [place] Bupivicaine [place] 2019-11-16 Completed [facility] - 11:23:00 [facility] Bupivicaine [place] Bupivicaine [place] 2019-11-16 Completed [facility] - 11:23:00 [facility] Bupivicaine [place] Bupivicaine [place] 2019-11-16 Completed [facility] - 11:23:00 [facility] Kenalog Kenalog 2019-11-16 Completed [facility] - (Triamcinolone) (Triamcinolone) 11:22:00 [facility] Kenalog Kenalog 2019-11-16 Completed [facility] - (Triamcinolone) (Triamcinolone) 11::00 [facility] Kenalog Kenalog 2019-11-16 Completed [facility] - (Triamcinolone) (Triamcinolone) 11::00 [facility] Kenalog Kenalog 2019-11-16 Completed [facility] - (Triamcinolone) (Triamcinolone) 11::00 [facility] Kenalog Kenalog 2019-11-16 Completed [facility] - (Triamcinolone) (Triamcinolone) 11:22:00 [facility] Kenalog Kenalog 2019-11-16 Completed [facility] - (Triamcinolone) (Triamcinolone) 11:22:00 [facility] Kenalog Kenalog 2019-11-16 Completed [facility] - (Triamcinolone) (Triamcinolone) 11:22:00 [facility] Fluzone Quadrivalent 2018-06-03 Completed [facility] [...] 2022-06-22 72 [in_i] [facility] - 11:20:00 [facility] weight 2022-06-22 343 [lb_av] [facility] - 11:20:00 [facility] temperature 2022-06-22 96.5 [degF] [facility] - 11:20:00 [facility] bmi 2022-06-22 46.51 kg/m2 [facility] - 11:20:00 [facility] oximetry 2022-06-22 97 % [facility] - 11:20:00 [facility] respiratory rate 2022-06-22 18 /min [facility] - 11:20:00 [facility] blood pressure 2022-06-22 141 mm[Hg] [facility] - systolic 11:20:00 [facility] blood pressure 2022-06-22 74 mm[Hg] [facility] - diastolic 11:20:00 [facility] Systolic blood 2022-05-16 110 mm[Hg] [facility] pressure 20:28:00 Diastolic blood 2022-05-16 72 mm[Hg] [facility] pressure 20:28:00 Heart rate 2022-05-16 60 /min [facility] 20:28:00 Body temperature 2022-05-16 36.11 Chrissie [facility] 20:17:00 Body height 2022-05-16 190.5 cm [facility] 20:17:00 Body weight 2022-05-16 158.305 kg [facility] 20:17:00 BMI 2022-05-16 43.62 kg/m2 [facility] 20:17:00 height 2021-04-06 72 [in_i] [facility] - 14:30:00 [facility] weight 2021-04-06 319 [lb_av] [facility] - 14:30:00 [facility] temperature 2021-04-06 98 [degF] [facility] - 14:30:00 [facility] bmi 2021-04-06 43.26 kg/m2 [facility] - 14:30:00 [facility] blood pressure 2021-04-06 121 mm[Hg] [facility] - systolic 14:30:00 [facility] blood pressure 2021-04-06 76 mm[Hg] [facility] - diastolic 14:30:00 [facility] height 2020-07-12 72 [in_i] [facility] - 16:30:00 [facility] weight 2020-07-12 318.3 [lb_av] [facility] - 16:30:00 [facility] temperature 2020-07-12 97.5 [degF] [facility] - 16:30:00 [facility] bmi 2020-07-12 43.16 kg/m2 [facility] - 16:30:00 [facility] oximetry 2020-07-12 97 % [facility] - 16:30:00 [facility] respiratory rate 2020-07-12 18 /min [facility] - 16:30:00 [facility] blood pressure 2020-07-12 129 mm[Hg] [facility] - systolic 16:30:00 [facility] blood pressure 2020-07-12 64 mm[Hg] [facility] - diastolic 16:30:00 [facility] height 2020-05-23 72 [in_i] [facility] - 11:20:00 [facility] weight 2020-05-23 314.4 [lb_av] [facility] - 11:20:00 [facility] temperature 2020-05-23 97.2 [degF] [facility] - 11:20:00 [facility] bmi 2020-05-23 42.64 kg/m2 [facility] - 11:20:00 [facility] oximetry 2020-05-23 98 % [facility] - 11:20:00 [facility] respiratory rate 2020-05-23 18 /min [facility] - 11:20:00 [facility] blood pressure 2020-05-23 140 mm[Hg] [facility] - systolic 11:20:00 [facility] blood pressure 2020-05-23 74 mm[Hg] [facility] - diastolic 11:20:00 [facility] Systolic blood 2023-01-07 167 mm[Hg] [facility] pressure 21:28:57 [facility] Diastolic blood 2023-01-07 79 mm[Hg] [facility] pressure 21:28:57 Hospital Heart rate 2023-01-07 104 /min [facility] 21:28:57 [facility] Body temperature 2023-01-07 35.67 Chrissie [facility] 21:28:57 [facility] Respiratory rate 2023-01-07 16 /min [facility] 21:28:57 Hospital Oxygen saturation 2023-01-07 96 /min [facility] in Arterial blood 21:28:57 Hospital by Pulse oximetry Body height 2023-01-07 190.5 cm [facility] 03:49:11 Hospital Body weight 2023-01-07 162.751 kg [facility] 03:49:11 Hospital BMI 2023-01-07 44.85 kg/m2 [facility] 03:49:11 Hospital Systolic blood 2022-11-14 149 mm[Hg] [facility] pressure 14:13:00 [facility] Diastolic blood 2022-11-14 93 mm[Hg] [facility] pressure 14:13:00 [facility] Heart rate 2022-11-14 73 /min [facility] 14:13:00 [facility] Body temperature 2022-11-[address] [facility] 14:[facility]:00 [facility] Body height 2022-11-[address] [facility] 14:00:00 [facility] Body weight 2022-11-[address] [facility] 14:00:00 [facility] BMI 2022-11-14 48.81 kg/m2 [facility] 14:00:00 [facility] Respitory Rate 2022-05-19 [facility] faina 14:30:00 Respitory Rate 2022-05-19 [facility] 14:00:00 Systolic (mm Hg) 2022-05-19 [facility] rmann 14:00:00 Diastolic (mm Hg) 2022-05-19 [facility] ermann 14:00:00 Respitory Rate 2022-05-19 [facility] faina 13:00:00 Systolic (mm Hg) 2022-05-19 [facility] rmann 13:00:00 Diastolic (mm Hg) 2022-05-19 [facility] ermann 13:00:00 Temperature Oral 2022-05-19 98.3 F [facility] rmann (F) 12:36:32 Systolic (mm Hg) 2022-05-19 [facility] rmann 12:00:00 Diastolic (mm Hg) 2022-05-19 [facility] ermann 12:00:00 Temperature Oral 2022-05-19 97.4 F [facility] rmann (F) 08:24:17 Temperature Oral 2022-05-19 98.5 F [facility] rmann (F) 03:59:28 Height 2022-05-17 190.5 cm [facility] Sadi n 04:38:00 Weight 2022-05-17 [facility] n 04:38:00 BMI Calculated 2022-05-17 [facility] faina 04:38:00 Heart Rate 2022-05-17 [facility]adi n 04:04:00 Height 2022-05-16 [facility] 22[facility] Calculated 2022-05-16 [facility] 22:05:00 Weight 2022-05-16 [facility] 22:05:00 Heart Rate 2022-05-16 [facility] 22:05:00 Systolic (mm Hg) 2022-05-13 [facility] 00:29:00 Diastolic (mm Hg) 2022-05-13 [facility] 00:29:00 Respitory Rate 2022-05-13 [facility] faina 00:29:00 Respitory Rate 2022-05-12 [facility] 18:10:00 Systolic (mm Hg) 2022-05-12 [facility] 18:10:00 Diastolic (mm Hg) 2022-05-12 [facility] 18:10:00 Heart Rate 2022-05-12 [facility] 14:49:57 Systolic (mm Hg) 2022-05-12 [facility] 14:49:51 Diastolic (mm Hg) 2022-05-12 [facility] 14:49:51 Heart Rate 2022-05-12 [facility] 14:49:51 Temperature Oral 2022-05-12 98.5 F [facility] (F) 14:49:13 Respitory Rate 2022-05-12 [facility] faina 13:00:00 Height 2022-05-12 190.5 cm [facility] 09:38:00 BMI Calculated 2022-05-12 [facility] faina 09:38:00 Weight 2022-05-12 [facility] 09:38:00 Heart Rate 2022-05-12 [facility] 09:38:00 Temperature Oral 2022-05-12 97.7 F [facility] (F) 09:38:00 Heart Rate 2021-10-10 [facility] 14:08:15 [...] ermann 10:20:37 Temperature Oral 2021-10-10 98.1 F [facility] rmann (F) 10:19:31 Respitory Rate 2021-10-10 [facility] faina 05:19:58 Systolic (mm Hg) 2021-10-10 [facility] 05:19:44 Diastolic (mm Hg) 2021-10-10 [facility] 05:19:44 Temperature Oral 2021-10-10 98.7 F [facility] Harpreet rmann (F) 05:18:56 Respitory Rate [...] n 09:21:01 Temperature Oral 2021-10-09 98.4 F [facility]reet rmann (F) 09:20:59 Systolic (mm [...] He rmann 13:47:41 Diastolic (mm Hg) 2021-10-05 [facility] ermann 13:47:41 Heart Rate 2021-10-05 [facility] 13:47:41 Temperature Oral 2021-10-05 99.2 F [facility] He rmann (F) 13:47:17 Heart Rate 2021-10-05 [facility] 09:39:43 Respitory Rate 2021-10-05 [facility] faina 09:39:43 Systolic (mm Hg) 2021-10-05 [facility] rmann 09:39:35 Diastolic (mm Hg) 2021-10-05 [facility] ermann 09:39:35 Temperature Oral 2021-10-05 98.4 F [facility] He rmann (F) 09:38:41 Respitory Rate 2021-10-05 [facility] faina 06:44:26 Systolic (mm Hg) 2021-10-05 [facility] 06:44:17 Diastolic (mm Hg) 2021-10-05 [facility] ermann 06:44:17 Temperature Oral 2021-10-05 98.7 F [facility] rmann (F) 06:42:51 Height 2021-10-03 190.5 cm [facility] 12:40:00 Weight 2021-10-03 [facility] 12:40:00 BMI Calculated 2021-10-03 [facility] faina 12:40:00 Height 2021-10-02 190.5 cm [facility] 16:30:00 Weight 2021-10-02 [facility] 16:30:00 BMI Calculated 2021-10-02 [facility] faina 16:30:00 Systolic (mm Hg) 2021-05-11 [facility] 13:50:00 Diastolic (mm Hg) 2021-05-11 [facility] ermann 13:50:00 Temperature Oral 2021-05-11 98.5 F [facility] rmann (F) 13:50:00 Systolic (mm Hg) 2021-05-11 [facility] rmann 12:22:00 Diastolic (mm Hg) 2021-05-11 [facility] ermann 12:22:00 Systolic (mm Hg) 2021-05-11 [facility] rmann 11:21:00 Diastolic (mm Hg) 2021-05-11 [facility] ermann 11:21:00 Respitory Rate 2021-05-11 [facility] 11:21:00 Respitory Rate 2021-05-11 [facility] 10:42:00 Respitory Rate 2021-05-11 [facility] faina 09:02:00 Temperature Oral 2021-05-11 98.4 F [facility] rmann (F) 08:30:00 Heart Rate 2021-05-11 [facility] 06:50:00 Heart Rate 2021-05-11 [facility] 06:18:00 Heart Rate 2021-05-11 [facility]adi n 00:55:00 Temperature Oral 2021-05-11 98.2 F [facility] rmann (F) 00:55:00 BP Systolic 2018-10-02 155 mm[Hg] Location: [place]; [facility] 15:26:00 Position: Sitting BP Diastolic 2018-10-02 88 mm[Hg] Location: [place]; [facility] 15:26:00 Position: Sitting Height 2018-10-02 75 [in_us] [facility] 15:26:00 Weight 2018-10-02 302 [lb_av] [facility] 15:26:00 Body Mass Index 2018-10-02 37.75 kg/m2 [facility] Calculated 15:26:00 Temperature 2018-10-02 98 [degF] Method: Oral [facility] 15:26:00 Heart Rate 2018-10-02 63 /min Location: [facility] 15:26:00 Apical; BP Systolic 2018-09-25 154 mm[Hg] Location: [place]; [facility] 10:26:00 Position: Sitting BP Diastolic 2018-09-25 98 mm[Hg] Location: [place]; [facility] 10:26:00 Position: Sitting Heart Rate 2018-09-25 70 /min Quality: Normal [facility] 10:26:00 BP Systolic 2018-09-25 169 mm[Hg] Location: [place]; [facility] 10:25:00 Position: Sitting BP Diastolic 2018-09-25 65 mm[Hg] Location: [facility]; [facility] 10:25:00 Position: Sitting Heart Rate 2018-09-25 [...] 18:19:00 BP Systolic 2018-06-03 136 mm[Hg] Location: [place]; [facility] 14:09:00 Position: Sitting BP Diastolic 2018-06-03 75 mm[Hg] Location: [place]; [facility] 14:09:00 Position: Sitting Height 2018-06-03 75 [...] faina 11:50:00 Temperature Oral 2018-05-16 98.8 F [facility] rmann (F) 10:56:00 Weight 2018-05-16 [facility] 10:56:00 Procedures Procedure Date / Time Performing Clinician Source Performed CBC WITH PLATELET AND 2023-01-07 [facility] DIFFERENTIAL COMPREHENSIVE METABOLIC 2023-01-07 09:31:00 [facility] PANEL ESTIMATED GFR 2023-01-07 09:31:00 Julian Sexton [facility] BLOOD CULTURE, AEROBIC & 2023-01-07 05:36[facility]00 [facility], AEROBIC & 2023-01-07 05:34:[address] [facility] ANAEROBIC CT HEAD WO CONTRAST 2023-01-07 03:33:37 Karen Mendoza [facility] URINE CULTURE 2023-01-07 01:58:[address] [facility] URINALYSIS SCREEN AND 2023-01-07 01:58:00 Karen Mendoza [facility] MICROSCOPY, WITH REFLEX TO CULTURE ABO AND RH CONFIRMATION BY 2023-01-07 00:55:[address] [facility] PROTOCOL CTA ABD/PEL FOR BLEEDING 2023-01-07 00:48:[address] [facility] CBC WITH PLATELET AND 2023-01-06 23:02:00 Karen Mendoza [facility] DIFFERENTIAL PROTHROMBIN TIME WITH INR 2023-01-06 23:02:[address] [facility] PARTIAL THROMBOPLASTIN 2023-01-06 23:02:00 Karen Mendoza [facility] TIME (PTT) COMPREHENSIVE METABOLIC 2023-01-06 23:02:00 [facility]EV[facility] 2023-01-06 23:02:[address] [facility] LIPASE LEVEL 2023-01-06 23:02:[address] [facility] TYPE AND SCREEN 2023-01-06 23:02:[address] [facility] ESTIMATED GFR 2023-01-06 23:02:[address] [facility] Injection, epidural, of 2022-05-18 17:43:21 David Cedeño blood or clot patch REFERRAL- REQUEST/RESPONSE 2021-03-30 05:01:00 Doctor Unassigned , [facility] Myringotomy 2020-10-10 00:00:00 [facility] jones [U] XRAY KNEE 4 OR MORE 2018-07-24 00:00:00 [facility] V[facility] RIGHT [id number] Emg/Ncv 2018-06-20 00:00:[facility] Sleep Lab - Sleep 2018-06-03 00:00:00 [facility] Study Split Night Ulnar nerve decompression 2017-08-12 00:00:00 Me morial [place] Ulnar nerve decompression 2015-08-12 00:00:00 Wi morial [facility] Operation [facility] Ext[facility] of wisdom tooth [facility] Appendectomy [facility] History of Cubital tunnel [facility] repair History of Wrist surgery [facility] Plan of Care Planned Activity Planned Date Details Comments Source Future Scheduled 2023-11-[address] [facility] Test 00:00:00 [facility] (12+) [code = Tobacco Cessation Counseling and Screening (12+)] Future Scheduled 2023-11-[address] [facility] Test 00:00:00 [facility] (12+) [code = Tobacco Cessation Counseling and Screening (12+)] Future Scheduled 2023-11-[address] [facility] Test 00:00:00 [facility] (12+) [code = Tobacco Cessation Counseling and Screening (12+)] Future Scheduled 2023-01-26 Pneumococcal Vaccine: [facility] Test 16:56:13 Pediatrics (0 to 5 Years) and At-Risk Patients (6 to 64 Years) (1 - PCV) [code = Pneumococcal Vaccine: Pediatrics (0 to 5 Years) and At-Risk Patients (6 to 64 Years) (1 - PCV)] Future Scheduled 2023-01-26 Hepatitis C screening [facility] Test 16:56:13 (procedure) [code = 793213578] Future Scheduled 2023-01-26 COVID-19 VACCINE (3 - [facility] Test 16:56:13 Pfizer series) [code = COVID-19 VACCINE (3 - Pfizer series)] Future Scheduled 2023-01-26 INFLUENZA VACCINE [facility] Test 16:56:13 [code = INFLUENZA VACCINE] Future Scheduled 2022-12-12 COVID-19 VACCINE (#1) [facility] Test 13:32:14 [code = COVID-19 VACCINE (#1)] Future Scheduled 2022-12-12 INFLUENZA VACCINE [facility] Test 13:32:14 [code = INFLUENZA VACCINE] Future Scheduled 2022-12-12 COVID-19 [facility]ACCINE (#[facility] 13:32:14 [code = COVID-19 VACCINE (#1)] Future Scheduled 2022-12-12 INFLUENZA VACCINE Method [facility] Test 13:32:14 [code = INFLUENZA VACCINE] Future Scheduled 2022-09-18 COVID-19 VACCINE (#1) [facility] 11:55:25 [code = COVID-19 VACCINE (#1)] Future Scheduled 2022-09-18 INFLUENZA VACCINE Method [facility] Test 11:55:25 [code = INFLUENZA VACCINE] Future Scheduled 2022-09-18 COVID-19 VACCINE (#1) [facility] 11:55:25 [code = COVID-19 VACCINE (#1)] Future Scheduled 2022-09-18 INFLUENZA VACCINE Method [facility] Test 11:55:25 [code = INFLUENZA VACCINE] Future Scheduled 2022-09-07 [facility] 19:13[facility]43 [code = COVID-19 VACCINE (#1)] Future Scheduled 2022-09-07 INFLUENZA VACCINE Method [facility] Test 19:13:43 [code = INFLUENZA VACCINE] Future Scheduled 2022-08-[address] [facility] Test 00:00:00 (12+) [code = Medical Center DEPRESSION SCREENING (12+)] Future Scheduled 2022-08-[address] [facility] Test 00:00:00 (12+) [code = Medical Center DEPRESSION SCREENING (12+)] Future Scheduled 2022-08-[address] [facility] Test 00:00:00 (12+) [code = Medical Center DEPRESSION SCREENING (12+)] Future Scheduled 2022-07-28 COVID-19 VACCINE (#1) [facility] 16:56:35 [code = COVID-19 VACCINE (#1)] Future Scheduled 2022-07-28 INFLUENZA VACCINE Method [facility] Test 16:56:35 [code = INFLUENZA VACCINE] Future Scheduled 2022-07-28 COVID[facility] 16:56[facility]35 [code = COVID-19 VACCINE (#1)] Future Scheduled 2022-07-28 INFLUENZA VACCINE Method [facility] Test 16:56:35 [code = INFLUENZA VACCINE] Future Scheduled 2022-04-13 HEPATITIS B VACCINES [facility] Test 21:38:54 (1 of 3 - 3-dose series) [code = HEPATITIS B VACCINES (1 of 3 - 3-dose series)] Future Scheduled 2022-04-13 COVID-19 VACCINE (#1) [facility] Test 21:38:54 [code = COVID-19 VACCINE (#1)] Future Scheduled 2022-04-13 INFLUENZA VACCINE [facility] Test 21:38:54 [code = INFLUENZA VACCINE] Future Scheduled 2022-04-13 HEPATITIS B VACCINES [facility] Test 21:38:54 (1 of 3 - 3-dose series) [code = HEPATITIS B VACCINES (1 of 3 - 3-dose series)] Future Scheduled 2022-04-13 COVID-19 VACCINE (#1) [facility] Test 21:38:54 [code = COVID-19 VACCINE (#1)] Future Scheduled 2022-04-13 INFLUENZA VACCINE [facility] Test 21:38:54 [code = INFLUENZA VACCINE] Future Scheduled 2022-04-13 HEPATITIS B VACCINES [facility] [facility] Test 21:38:54 (1 of 3 - 3-dose series) [code = HEPATITIS B VACCINES (1 of 3 - 3-dose series)] Future Scheduled 2022-04-13 COVID-19 VACCINE (#1) [facility] Test 21:38:54 [code = COVID-19 VACCINE (#1)] Future Scheduled 2022-04-13 INFLUENZA VACCINE Method [facility] Hospital Test 21:38:54 [code = INFLUENZA VACCINE] Future Scheduled 2022-04-13 HEPATITIS B VACCINES Met [facility] Test 21:38:54 (1 of 3 - 3-dose series) [code = HEPATITIS B VACCINES (1 of 3 - 3-dose series)] Future Scheduled 2022-04-13 COVID-19 VACCINE (#1) [facility] Test 21:38:54 [code = COVID-19 VACCINE (#1)] Future Scheduled 2022-04-13 INFLUENZA VACCINE Method [facility] Test 21:38:54 [code = INFLUENZA VACCINE] Future Scheduled 2022-04-13 HEPATITIS B VACCINES [facility] Test 21:38:54 (1 of 3 - 3-dose series) [code = HEPATITIS B VACCINES (1 of 3 - 3-dose series)] Future Scheduled 2022-04-13 COVID-19 VACCINE (#1) [facility] Hospital Test 21:38:54 [code = COVID-19 VACCINE (#1)] Future Scheduled 2022-04-13 INFLUENZA VACCINE Method [facility] Hospital Test 21:38:54 [code = INFLUENZA VACCINE] Future Scheduled 2022-04-13 HEPATITIS B VACCINES [facility] Test 21:38:54 (1 of 3 - 3-dose series) [code = HEPATITIS B VACCINES (1 of 3 - 3-dose series)] Future Scheduled 2022-04-13 COVID-19 VACCINE (#1) [facility] Hospital Test 21:38:54 [code = COVID-19 VACCINE (#1)] Future Scheduled 2022-04-13 INFLUENZA VACCINE Method [facility] Hospital Test 21:38:54 [code = INFLUENZA VACCINE] Future Scheduled 2021-07-01 COVID-19 VACCINE (3 - [facility] Test 00:[facility]:00 Booster for Pfizer Medical C enter series) [code = COVID-19 VACCINE (3 - Booster for Pfizer series)] Future Scheduled 2021-07-01 COVID-19 VACCINE (3 - [facility] Test 00:00:00 Booster for Pfizer Medical C enter series) [code = COVID-19 VACCINE (3 - Booster for Pfizer series)] Future Scheduled 2021-07-01 COVID-19 VACCINE (3 - [facility] Test 00:00:00 Booster for Pfizer Medical C enter series) [code = COVID-19 VACCINE (3 - Booster for Pfizer series)] Diagnostic Test 2018-06-20 Emg/Ncv [code = [facility] 00:00:00 Emg/Ncv] Diagnostic Test 2018-06-20 Emg/Ncv [code = [facility] 00:00:00 Emg/Ncv] Future Scheduled [address] [facility] Test 00:00:00 (procedure) [code = [facility] [id number]] Future Scheduled [address] [facility] Test 00:00:00 (procedure) [code = [facility] [id number]] Future Scheduled [address] [facility] Test 00:00:00 (procedure) [code = [facility] [id number]] Future Scheduled 1999 DTAP/TDAP/TD VACCINES [facility] Test 00:00:00 (1 - Tdap) [code = Medical C enter DTAP/TDAP/TD VACCINES (1 - Tdap)] Future Scheduled 1999 DTAP/TDAP/TD VACCINES [facility] Test 00:00:00 (1 - Tdap) [code = Medical C enter DTAP/TDAP/TD VACCINES (1 - Tdap)] Future Scheduled 1999 DTAP/TDAP/TD VACCINES [facility] Test 00:00:00 (1 - Tdap) [code = Medical C enter DTAP/TDAP/TD VACCINES (1 - Tdap)] Future Scheduled 1998 HEPATITIS C [facility]CRE[facility]ING [facility] Test 00:00:00 [code = HEPATITIS C [facility] Center SCREENING] Future Scheduled 1998 HEPATITIS C [facility]CRE[facility]ING [facility] Test 00:00:00 [code = HEPATITIS C Medical Center SCREENING] Future Scheduled 1998 HEPATITIS C [facility]ING [facility] Test 00:00:00 [code = HEPATITIS C Medical Center SCREENING] Future Scheduled COVID[facility]19 [facility]ACC[facility] [code = COVID-19 VACCINE (1)] Future Scheduled Hepatitis C screening [facility] Test (procedure) [code = [id number]] Future Scheduled INFLUENZA VACCINE [facility] Test [code = INFLUENZA VACCINE] Encounters Start End Encounter Admission Attending Care Care Encounter Source Date/Time Date/Time Type Type Clinicians Facility Department ID 2023-02-04 Outpatient [facility] [id number] [place] 16:00:55 [id number] [facility] 2023-02-04 Inpatient YUKSEL, [facility] [id number] [facility] H 13:10:28 SANCAK 2023-01-04 Outpatient [facility] [id number] [place] 10:29:46 [id number] [facility] 2022-12-21 [facility] [id number] Common 09:37:00 [facility] [id number] [place] [address] 2022-09-27 Outpatient [facility] [id number] [place] 15:49:39 [id number] [facility] 2022-09-25 Outpatient VazquezFUAD fraustoLC STLMLC [id number] Common 10:35:01 [facility] [address] [facility] 2022-09-20 Outpatient [facility] [id number] [place] 09:01:19 [id number] [facility] 2022-09-18 Outpatient [facility] [id number] [place] 13:05:14 [id number] [facility] 2022-09-04 Outpatient [facility] [id number] UT 09:48:26 [id number] [facility] 2022-09-03 Outpatient [facility] [id number] UT 10:22:47 [id number] [facility] 2022-08-15 Outpatient [facility] [id number] UT 08:54:00 [id number] [facility] 2022-07-30 Outpatient [facility] [id number] [place] 09:03:26 [id number] [facility] 2022-07-27 Outpatient [facility] [id number] [place] 09:39:00 [id number] [facility] 2022-06-22 Outpatient Vazquez, STLMLC STLMLC [id number] Common 11:03:01 [facility] 2022-06-20 Outpatient [facility] [id number] [place] 15:53:00 [id number] [facility] 2022-06-20 Outpatient Vazquez, STLMLC STLMLC [id number] Common 09:33:01 [facility] 2022-06-19 Outpatient [facility] [id number] UT 15:00:31 [id number] [facility] 2022-06-12 Outpatient [facility] [id number] [place] 09:35:34 [id number] [facility] 2022-05-25 Outpatient [facility] [id number] UT 13:39:31 [id number] [facility] 2021-10-25 Outpatient MIGUEL ANGEL [facility] ANAY [address] [facility] 11:23:00 MINDEN 2021-09-28 Outpatient DAY, NOAH [facility] [id number] [place] 16:10:44 [facility] 2021-09-06 Outpatient Vazquez, STLMLC STLMLC [id number] Common 12:12:10 [facility] [id number] [facility] 2021-09-06 Outpatient Vazquez, STLMLC STLMLC [id number] Common 12:10:54 John [id number] [facility] 2021-09-06 [facility] [id number] Common 12:09:52 John [id number] [facility] 2021-09-06 [facility] [id number] Common 11:54:05 John [id number] [facility] 2021-09-06 [facility] [id number] Common 11:06:57 John [id number] [facility] 2021-09-06 [facility] [id number] Common 11:06:47 John [id number] [facility] 2021-04-18 Outpatient PATKI, [facility] [id number] [place] 14:45:53 [facility] 2023-04-23 2023-04-23 Outpatient NAM, NANETTE [facility] [id number] [place] 14:00:00 14:00:00 Health 2023-01-10 2023-01-10 Outpatient CORCORAN [facility] [id number] [place] 13:00:00 13:00:00 Karthik WILHELM 2023-01-06 2023-01-07 Emergency Karen Mendoza . 1.2.840.1 [id number] Methodi 17:24:00 18:25:00 Julian Sexton [address]65.1.[address] César Aidan 3.430.2.7 Hospita .3.088572 l .8 2023-01-06 2023-01-07 Outpatient [facility] [id number] [place] 00:00:00 00:00:[address] 2023-01-06 2023-01-06 Travel 1.2.840.1 1.2.643.324 [id number] Methodi 00:00:00 00:00:[address] 3.430.2.7 0.2.7.3.698 spita .3.488271 084.8 l .8 2022-11-14 2022-11-[address] [facility] [id number] 14:30:00 15:33:44 [facility] 2022-11-14 2022-11-[address] [facility] [id number] 14:30:00 15:33:44 [facility] 2022-09-28 2022-09-28 Office Alyse [facility] 6400 1.2.840.114 [id number] [place] 15:00:00 16:43:[address] 350.1.13.58 Health 9.2.7.2.686 [id number] 5 2022-09-26 2022-09-26 Outpatient ALYSE, [facility] [id number] [place] 13:15:00 13:15:00 [facility] 2022-09-20 2022-09-21 Outpt Diag MARCELA [facility] [id number] Memoria 19:41:00 05:59:00 Services Outpatient 03 l Imaging Davidson Cedeño 2022-09-20 2022-09-20 Outpatient Alyse [facility] [id number] 13:41:00 23:59:00 [facility] 03 2022-09-20 2022-09-20 Office ALYSE [facility] 6400 1.2.840.114 [id number] [place] 08:45:00 08:45:[address] 350.1.13.58 Health 9.2.7.2.686 [id number] 5 2022-08-16 2022-08-16 Outpatient CAITLIN, [facility] [id number] UT 14:30:00 14:30:00 [facility] 2022-08-01 2022-08-01 Outpatient CAITLIN, [facility] [id number] UT 11:00:00 11:00:00 [facility] 2022-07-27 2022-07-27 Office Alyse [facility] 6400 1.2.840.114 [id number] UT 08:30:00 09:48:28 Visit Manasa KING 350.1.13.58 [facility] 9.2.7.2.686 [id number] 5 2022-07-25 2022-07-25 (TEL) STLMLC STLMLC [id number] Co mmon 00:00:00 00:00:00 [facility] 2022-06-22 2022-06-22 (TEL) STLMLC STLMLC [id number] Co mmon 00:00:00 00:00:00 [facility] 2022-06-22 2022-06-22 OFFICE STLMLC STLMLC [id number] Co mmon 00:00:00 00:00:00 VISIT [facility] [address] [facility] 2022-06-20 2022-06-20 Outpatient DAY, NOAH [facility] [id number] [place] 14:00:00 14:00:00 Health 2022-06-13 2022-06-13 Outpatient DAY, NOAH [facility] [id number] UT 13:15:00 13:15:00 [facility] 2022-06-06 2022-06-06 (TEL) STLMLC STLMLC [id number] Co mmon 00:00:00 00:00:00 [facility] 2022-06-06 2022-06-06 (TEL) STLMLC STLMLC [id number] Co mmon 00:00:00 00:00:00 [facility] 2022-05-16 2022-05-19 [facility] [id number] Memoria 21:39:42 16:40:[address] 2022-05-17 2022-05-19 Outpatient E DAY, NOAH [facility] [id number] [facility] 10:13:00 11:40:00 2022-05-16 2022-05-19 Outpatient Day, Noah [facility] [id number] 16:39:42 11:40:00 L 2022-05-16 2022-05-19 Outpatient Day, Noah [facility] [id number] 16:39:42 11:40:00 L 07 2022-05-16 2022-05-16 Office DAY, NOAH [facility] 6400 1.2.840.114 1 [id number] UT 15:45:00 15:45:[address] 350.1.13.58 Health 9.2.7.2.686 [id number] 0 2022-05-12 2022-05-13 Emergency [facility] [id number] Memoria 09:35:00 02:21:[address] 2022-05-12 2022-05-12 Outpatient Treviño, [facility] [id number] 04:35:00 21:21:[address] [place] [address] 2022-05-12 2022-05-12 Emergency E ALEJANDRA, [facility] [id number] [facility] 03:16:00 21:21:00 SONIA 2022-03-21 2022-03-21 Outpatient DAY, NOAH [facility] [id number] MT 15:00:00 15:00:00 Health 2022-03-14 2022-03-14 Telephone Day, Noah [facility] 6400 1.2.840.114 [id number] MT 00:00:00 00:00:[address] 350.1.13.58 Health 9.2.7.2.686 [id number] 0 2022-03-14 2022-03-14 Telephone Patki, [facility] 6400 1.2.840.114 [id number] UT 00:00:00 00:00:[address] 350.1.13.58 Health 9.2.7.2.686 [id number] 3 2022-03-14 2022-03-14 Telephone Day, Noah [facility] 6400 1.2.840.114 [id number] [place] 00:00:00 00:00:[address] 350.1.13.58 Health 9.2.7.2.686 [id number] 0 2022-03-13 2022-03-13 Telephone Day, Noah [facility] 6400 1.2.840.114 [id number] UT 00:00:00 00:00:[address] 350.1.13.58 Health 9.2.7.2.686 [id number] 0 2022-01-01 2022-01-01 Telephone Day, Noah [facility] 6400 1.2.840.114 [id number] UT 00:00:00 00:00:[address] 350.1.13.58 Health 9.2.7.2.686 [id number] 0 2021-12-28 2021-12-28 Telephone Day, Noah [facility] 6400 1.2.840.114 [id number] UT 00:00:00 00:00:[address] 350.1.13.58 Health 9.2.7.2.686 [id number] 0 2021-12-06 2021-12-06 Telephone Day, Noah [facility] 6400 1.2.840.114 [id number] UT 00:00:00 00:00:[address] 350.1.13.58 Health 9.2.7.2.686 [id number] 0 2021-11-27 2021-11-27 Telephone Day, Noah [facility] 6400 1.2.840.114 [id number] UT 00:00:00 00:00:[address] 350.1.13.58 Health 9.2.7.2.686 [id number] 0 2021-11-01 2021-11-01 Telephone Day, Noah [facility] 6400 1.2.840.114 [id number] UT 00:00:00 00:00:[address] 350.1.13.58 Health 9.2.7.2.686 [id number] 0 2021-10-30 2021-10-30 Telephone Rae Naranjo [facility] 1.2.840 .114 [id number] UT 00:00:00 00:00:00 Rae Naranjo NIKOLAI 350.1.13.58 Health MEDICAL 9.2.7.2.686 BUILDING [id number] 1 2021-10-27 2021-10-27 Telephone Day, Naoh [facility] 6410 1.2.840.114 [id number] UT 00:00:00 00:00:[address] 350.1.13.58 Health 9.2.7.2.686 [id number] 8 2021-10-25 2021-10-26 Outpt Diag nullFlavo [facility] [id number] Memoria 18:11:00 04:59:00 Services r Outpatient 01 l Imaging [facility] 2021-10-25 2021-10-26 Outpt Diag nullFlavo [facility] [id number] Memoria 18:11:00 04:59:00 Services r Outpatient 01 l Imaging [facility] 2021-10-25 2021-10-25 Outpatient Miguel Angel OIP [facility] [id number] 13:11:00 23:59:00 Geronimo Clarke 01 2021-10-24 2021-10-24 Telephone Layne Sánchez [facility] 6400 1.2.840.1 14 [id number] MT 00:00:00 00:00:[address] ST 350.1.13.58 Health 9.2.7.2.686 [id number] 3 2021-10-24 2021-10-24 Telephone Noah Osorio [facility] 6400 1.2.840.114 [id number] [place] 00:00:00 00:00:[address] 350.1.13.58 Health 9.2.7.2.686 [id number] 0 2021-10-20 2021-10-20 Office EUNICE Michelle 1.2.840.114 [id number] MT 13:30:00 14:18:52 Visit Geronimo MENCHACA 350.1.13.58 H [facility] 9.2.7.2.686 [facility] [id number] 1 2021-10-18 2021-10-19 Outpt Diag nullFlavo [facility] [id number] Memoria 17:43:00 05:59:00 Services r Outpatient 00 l Imaging [facility] 2021-10-18 2021-10-19 Outpt Diag nullFlavo [facility] [id number] Memoria 17:43:00 05:59:00 Services r Outpatient 00 l Imaging [facility] 2021-10-18 2021-10-18 Outpatient Day, Noah [facility] [id number] 11:43:00 23:59:00 L 00 2021-10-18 2021-10-18 Office Day, Noah [facility] 6400 1.2.840.114 1 [id number] UT 10:00:00 10:15:[address] 350.1.13.58 Health 9.2.7.2.686 [id number] 0 2021-10-18 2021-10-18 Telephone Day, Noah [facility] 6400 1.2.840.114 [id number] UT 00:00:00 00:00:[address] 350.1.13.58 Health 9.2.7.2.686 [id number] 0 2021-10-18 2021-10-18 Telephone Day, Noah [facility] 6400 1.2.840.114 [id number] UT 00:00:00 00:00:[address] 350.1.13.58 Health 9.2.7.2.686 [id number] 0 2021-10-17 2021-10-17 Telephone Day, Noah [facility] 6400 1.2.840.114 [id number] MT 00:00:00 00:00:[address] 350.1.13.58 Health 9.2.7.2.686 [id number] 0 2021-10-13 2021-10-13 Telephone Day, Noah [facility] 6400 1.2.840.114 [id number] MT 00:00:00 00:00:[address] 350.1.13.58 Health 9.2.7.2.686 [id number] 0 2021-10-08 2021-10-10 Inpatient [facility] [id number] Memoria 23:43:00 15:48:[address] 2021-10-08 2021-10-10 Inpatient [facility] [id number] Memoria 23:43:00 15:48:[address] 2021-10-08 2021-10-10 Inpatient E DAY, NOAH [facility] 2057 [facility] 19:58:00 09:48:00 2021-10-08 2021-10-10 Outpatient Day, Noah [facility] [id number] 17:43:00 09:48:00 L 58 2021-10-08 2021-10-08 Outpatient Day, Noah [facility] [id number] 17:43:00 17:43:00 L 58 2021-10-03 2021-10-05 Inpatient [facility] [id number] Memoria 11:15:00 16:21:[address] 2021-10-03 2021-10-05 Inpatient [facility] [id number] Memoria 11:15:00 16:21:[address] 2021-10-03 2021-10-05 Outpatient Day, Noah [facility] [id number] 05:15:00 10:21:00 L 05 2021-10-03 2021-10-05 Outpatient Day, Noah [facility] [id number] 05:15:00 10:21:00 L 05 2021-10-03 2021-10-05 Inpatient DAY, NOAH [facility] [id number] [facility] 05:15:00 10:21:00 2021-10-04 2021-10-04 Telephone Day, Noah [facility] 6400 1.2.840.114 [id number] UT 00:00:00 00:00:[address] 350.1.13.58 Health 9.2.7.2.686 [id number] 0 2021-09-28 2021-09-28 Telephone Day, Noah [facility] 6400 1.2.840.114 [id number] UT 00:00:00 00:00:[address] 350.1.13.58 Health 9.2.7.2.686 [id number] 0 2021-09-28 2021-09-28 Telephone Dorothea Delgadillo [facility] 6400 1.2.84 0.114 [id number] UT 00:00:00 00:00:[address] 350.1.13.58 Health 9.2.7.2.686 [id number] 3 2021-09-22 2021-09-22 Telephone Day, Noah [facility] 6400 1.2.840.114 [id number] UT 00:00:00 00:00:[address] 350.1.13.58 Health 9.2.7.2.686 [id number] 0 2021-09-20 2021-09-20 Telephone Day, Noah [facility] 6400 1.2.840.114 [id number] UT 00:00:00 00:00:[address] 350.1.13.58 Health 9.2.7.2.686 [id number] 7 2021-09-18 2021-09-18 Telephone Amelia Cameron [facility] 6400 1.2.840.11 4 [id number] MT 00:00:00 00:00:[address] 350.1.13.58 Health 9.2.7.2.686 [id number] 5 2021-09-07 2021-09-07 Office Patkenji, [facility] 6400 1.2.840.114 [id number] UT 13:30:00 14:35:[address] 350.1.13.58 Health 9.2.7.2.686 [id number] 3 2021-09-07 2021-09-07 Telephone Stacy, [facility] 6400 1.2.840.114 [id number] UT 00:00:00 00:00:[address] 350.1.13.58 Health 9.2.7.2.686 [id number] 3 2021-09-05 2021-09-05 Telephone Stacy, [facility] 6400 1.2.840.114 134 [id number] UT 00:00:00 00:00:[address] 350.1.13.58 Health 9.2.7.2.686 [id number] 3 2021-09-03 2021-09-03 Telephone Stacy, [facility] 6400 1.2.840.114 [id number] UT 00:00:00 00:00:00 Junior JOYCE 350.1.13.58 Health 9.2.7.2.686 [id number] 3 2021-08-02 2021-08-02 EUNICE Carias 6400 1.2.840.114 [id number] UT 00:00:00 00:00:00 Junior JOYCE 350.1.13.58 Health 9.2.7.2.686 [id number] 3 2021-05-18 2021-05-18 Orders Brii Howard [facility] 6400 1.2.840.114 [id number] UT 00:00:00 00:00:00 Only Brii Howard 350.1.13.58 Health 9.2.7.2.686 [id number] 3 2021-05-18 2021-05-18 Orders EUNICE Kumar 6400 1.2.840.114 [id number] UT 00:00:00 00:00:00 Only Junior JOYCE 350.1.13.58 Health 9.2.7.2.686 [id number] 3 2021-05-15 2021-05-15 EUNICE Carias 6400 1.2.840.114 [id number] UT 00:00:00 00:00:00 Junior JOYCE 350.1.13.58 Health 9.2.7.2.686 [id number] 3 2021-05-11 2021-05-11 Emergency [facility] [id number] Memoria 00:42:19 14:08:[address] 2021-05-11 2021-05-11 Emergency [facility] [id number] Memoria 00:42:19 14:08:[address] 2021-05-10 2021-05-11 Outpatient Corky [facility] [id number] 19:42:19 09:08:00 Kasi Galeah 2021-05-11 2021-05-11 [facility]TEL) [facility] [id number] Co mmon 00:00:00 00:00:00 [facility] 2021-05-09 2021-05-09 Telephone Patki, [facility] 6400 1.2.840.114 [id number] UT 00:00:00 00:00:[address] 350.1.13.58 Health 9.2.7.2.686 [id number] 3 2021-05-08 2021-05-08 Telephone Patki, [facility] 6400 1.2.840.114 [id number] UT 00:00:00 00:00:[address] 350.1.13.58 Health 9.2.7.2.686 [id number] 3 2021-05-08 2021-05-08 Telephone Patki, [facility] 6400 1.2.840.114 [id number] UT 00:00:00 00:00:[address] 350.1.13.58 Health 9.2.7.2.686 [id number] 3 2021-05-08 2021-05-08 Telephone Patki, [facility] 6400 1.2.840.114 [id number] UT 00:00:00 00:00:[address] 350.1.13.58 Health 9.2.7.2.686 [id number] 3 2021-05-03 2021-05-03 Office Patki, [facility] 6400 1.2.840.114 [id number] UT 13:38:06 14:42:[address] 350.1.13.58 Health 9.2.7.2.686 [id number] 3 2021-05-03 2021-05-03 Office Patki, [facility] 6400 1.2.840.114 [id number] UT 13:38:06 14:42:[address] 350.1.13.58 Health 9.2.7.2.686 [id number] 3 2021-04-18 2021-04-18 Office Patki, UTP 6400 1.2.840.114 [id number] [place] 13:09:45 14:44:[address] 350.1.13.58 Health 9.2.7.2.686 [id number] 3 2021-04-18 2021-04-18 Office EUNICE Kumar 6400 1.2.840.114 [id number] [place] 13:09:45 14:44:[address] 350.1.13.58 Health 9.2.7.2.686 [id number] 3 2021-04-06 2021-04-[address] [facility] [id number] Co mmon 00:00:00 00:00:00 VISIT EST Spir it PT LEVEL 3 [facility] 2021-04-06 2021-04-06 (TEL) STLMLC STLC [id number] Co mmon 00:00:00 00:00:00 [facility] 2021-03-31 2021-03-31 (TEL) STLC STLMLC [id number] Co mmon 00:00:00 00:00:00 [facility] 2021-03-30 2021-03-30 Orders Doctor AICHA 1.2.840.114 [id number] 00:00:00 00:00:00 Only Unassigned, ABDULKADIR 350.1.13.10 [place] [facility] 4.2.7.2.686 [id number] 2021-03-30 2021-03-30 Orders Doctor AICHA 1.2.840.114 [id number] Univers 00:00:00 00:00:00 Only Unassigned, ABDULKADIR 350.1.13.10 ity of [place] [facility] 4.2.7.2.686 Norberto as [id number] [place] [address] [place] 2021-03-21 2021-03-21 Ancillary 1, Gal [facility]ERS[facility] 1.2.840.114 [id number] 14:21:34 15:15:15 Visit [employer] Y 350.1.13.10 [address] 4.2.7.2.686 BANK [id number] BLDG. 141 2021-03-21 2021-03-21 Outpatient R RENZO, [facility] [id number] Univers 13:45:00 13:45:00 FABY itkatarzyna [facility] 2021-01-17 2021-01-17 Emergency X BARBARA, [facility] ERT [id number] Univers 19:28:00 19:28:00 LAURENCE itkatarzyna [facility] 2020-11-21 2020-11-21 Emergency X [facility] ERT [id number] Univers 15:51:00 15:51:00 ity [facility] 2020-07-20 2020-07-20 (TEL) STLMLC STLMLC [id number] Co mmon 00:00:00 00:00:00 [facility] 2020-07-12 2020-07-12 OFFICE STLMLC STLMLC [id number] Co mmon 00:00:00 00:00:00 VISIT EST Spir it PT LEVEL 3 [facility] 2020-05-23 2020-05-23 OFFICE STLMLC STLMLC [id number] Co mmon 00:00:00 00:00:00 VISIT EST Spir it PT LEVEL 3 [facility] 2020-02-24 2020-02-24 [facility] [id number] Common 14:42:00 14:42:[address] [facility] 2020-02-22 2020-02-22 [facility] [id number] Common 13:51:00 13:51:[address] [facility] 2019-12-10 2019-12-10 [facility] [id number] Common 15:39:00 15:39:[address] [facility] 2019-12-08 2019-12-08 Outpatient [facility] [id number] Common 13:40:00 13:40:00 t [facility] [address] [facility] 2019-12-07 2019-12-07 Out[facility] 30 [id number] Common 12:05:00 12:05:[address] [facility] 2019-11-16 2019-11-16 Out[facility] [id number] Common 11:00:00 11:00:00 t Bone Bone and Spiri t and Joint Joint - [facility] 2019-10-21 2019-10-21 Emergency X Blaire [facility] ERT [id number] Univers 11:24:16 14:51:00 ity of [facility] 2019-09-29 2019-09-29 [facility] [id number] Common 09:21:00 09:21:00 t Bone Bone and Spiri t and Joint Joint - [facility] 2019-09-21 2019-09-21 [facility] [id number] Common 14:00:00 14:00:00 t Bone Bone and Spiri t and Joint Joint - [facility] 2019-03-13 2019-03-13 AppointEUNICE Serra [facility] [id number] [place] 09:00:00 09:00:00 t; Lesa RODIRGUEZ Ph savannah Roberto M.D. 2018-10-02 2018-10-02 AppointEUNICE Ibrahim [facility] [id number] [place] 15:00:00 15:00:00 t; Asher JONES i, M.D. ans POURAN, M.D. 2018-09-25 2018-09-25 Appointmen EUNICE CEJA [facility] [id number] [place] 10:30:00 10:30:00 t; BRANT CJEA NP Health and Valery GUO NP Wellness [facility] 2018-09-22 2018-09-22 AppointEUNICE Ibrahim [facility] [id number] [place] 15:30:00 15:30:00 t; Asher JONES i, M.D. ans POURAN, M.D. 2018-08-22 2018-08-22 AppointEUNICE Paul [facility] [id number] [place] 09:30:00 09:30:00 t; Lesa BRYANT Ph savannah Rios M.D. 2018-07-29 2018-07-29 [facility] [id number] [place] 14:30:00 14:30:00 t; Lesa BRYANT savannah Rios M.D. 2018-07-25 2018-07-25 [facility] [id number] [place] 10:30:00 10:30:00 t; [facility] RUBIOHAMsavannah M.D. 2018-07-22 2018-07-22 [facility] [id number] [place] 11:15:00 11:15:00 t; [facility] savannah BRYANT M.D. 2018-07-15 2018-07-15 [facility] [id number] [place] 10:30:00 10:30:00 t; Lesa BRYANT [facility] TORI, Orthopedics savannah BRYANT M.D. 2018-07-09 2018-07-10 [facility] [id number] Memoria 18:05:00 00:00:00 Surgery r [place] 03 l [place] 2018-07-09 2018-07-10 [facility] [id number] Memoria 18:05:00 00:00:00 Surgery r [place] 03 l [place] 2018-07-09 2018-07-09 Outpatient Tori, SL S [id number] 12:05:00 18:00:00 Migue Campos 2018-07-09 2018-07-09 [facility] [id number] [place] 13:00:00 13:00:00 t; Lesa BRYANT Ph savannah Rios M.D. 2018-06-30 2018-06-30 [facility] [id number] [place] 10:15:00 10:15:00 t; [facility] Orthopedics savannah BRYANT M.D. 2018-06-24 2018-06-24 [facility] [id number] Memoria 00:15:00 05:59:00 r [place] 02 l [place] Kelly 2018-06-24 2018-06-24 [facility] [id number] Memoria 00:15:00 05:59:00 r [place] 02 l [place] Kelly 2018-06-23 2018-06-23 Outpatient Joemiguel angelsukumarMARCIASL [facility] [id number] 18:15:00 23:59:00 Geovanna Colunga 2018-06-20 2018-06-20 [facility] [place] [id number] [place] 13:40:00 13:40:00 t; SHANE MONROE [place] hysigeovanni ROTH, Orthopedics a ns SHANE MONROE 2018-06-19 2018-06-19 [facility] JOEMIGUEL [facility]SU[facility] [id number] [place] 08:15:00 08:15:00 t; GEOVANNA FOLEY D.O. Physici KERRY, ans D.OClemente 2018-06-17 2018-06-17 [facility] [id number] [place] 15:45:00 15:45:00 t; Lesa BRYANT [facility] Valery VALLE Orthopedics savannah BRYANT M.D. 2018-06-03 2018-06-03 [facility]EMIGUEL [facility]SUK[facility] [id number] [place] 13:45:00 13:45:00 t; GEOVANNA FOLEY D.O. [facility] savannah Vora.OClemente 2018-05-16 2018-05-16 [facility] [id number] Memoria 10:52:00 13:34:00 r [place] 01 l [place] Kelly 2018-05-16 2018-05-16 [facility] [id number] Memoria 10:52:00 13:34:00 r [place] 01 l [place] Kelly 2018-05-16 2018-05-16 Outpatient Jose Crenshaw [facility] [id number] 05:52:00 08:34:00 01 Results Test Description Test Time Test Comments Results Result Comments Source Urine culture 2023-01-07 02:15:00 Test Item Value Reference Range Interpretation Comme nts Urine culture (test code = 7100457) SEE COMMENT Bacteriuria screen negative. [facility] [id number] 21:10:35 Test Item Value Reference Range Interpretation Comments RADRPT (test code = EXAM: CT TEMPORAL BONE RADRPT) WITHOUT CONTRASTDATE: 09/20/2022INDICATION: - G96.01 Cranial cerebrospinal fluid leak, spontaneous.COMPARISON: Temporal bone CT 05/11/2021TECHNIQUE: Volumetric CT of the temporal bones is acquired without contrast. Axial, coronal and sagittal images are provided.IV contrast: None.DLP: Refer to CT protocol formFINDINGS:LEFT:Mastoid air cells are well developed. There is complete opacification of the left mastoid air cells with partial opacification of the left middle ear cavity.External auditory canal is patent and normal caliber.The scutum is intact. Ossicular chain is normal. Tegmen tympani and mastoideum show areas of osseous thinning/dehiscence. Cochlea, vestibule and semicircular canals appear normal. The roof of the superior semicircular canal is intact. Normal course and caliber of the internal auditory and facial nerve canals. Vestibular aqueduct is not enlarged. Carotid canal and jugular bulb are unremarkable.RIGHT:Mastoid air cells are well developed and aerated.External auditory canal is patent and normal caliber.The middle ear cavity is well pneumatized and clear. The scutum is intact. Ossicular chain is normal. Small areas of osseous thinning/dehiscence along the right tegmen mastoideum and tympani.Cochlea, vestibule and semicircular canals appear normal. The roof of the superior semicircular canal is intact. Normal course and caliber of the internal auditory and facial nerve canals. Vestibular aqueduct is not enlarged. Carotid canal and jugular bulb are unremarkable.IMPRESSION:1. Redemonstrated complete opacification of the left mastoid air cells, as was noted on the CT temporal bone exam in 05/11/2021, however interval evacuation of the left mastoid air cells noted on the sagittal recent CT head 05/18/2022. Partial opacification of the left middle ear cavity. No convincing erosive changes in the ossicular chain.2. Small areas of osseous thinning/dehiscence along bilateral tegmen tympani and mastoideum, similar to prior CT temporal bone. [facility]2022-10-08 06:16:00 Test Item Value Reference Range Interpretation Comments UA Color (test code = Yellow *NA*(05/19/22 UA Color) 1:16 AM) [facility] AND [id number] 06:16:00 Test Item Value Reference Range Interpretation Comments UA Turbidity (test code = Clear (05/19/22 1:16 UA Turbidity) AM) [facility] AND [id number] 06:16:00 Test Item Value Reference Range Interpretation Comments UA Spec Grav (test code = UA Spec 1.010 1 Grav) [facility] AND [id number] 06:16:00 Test Item Value Reference Range Interpretation Comments UA pH (test code = UA pH) 6.0 1 5.0-8.0 [facility] AND [id number] 06:16:00 Test Item Value Reference Range Interpretation Comments UA Protein (test code = UA Negative mg/dL Protein) [facility] AND [id number] 06:16:00 Test Item Value Reference Range Interpretation Comments UA Glucose (test code = UA Negative mg/dL Glucose) [facility] AND [id number] 06:16:00 Test Item Value Reference Range Interpretation Comments UA Ketones (test code = UA Negative mg/dL Ketones) [facility] AND [id number] 06:16:00 Test Item Value Reference Range Interpretation Comments UA Bili (test code = Negative *NA*(05/19/22 UA Bili) 1:16 AM) [facility] AND [id number] 06:16:00 Test Item Value Reference Range Interpretation Comments UA Blood (test code = Negative (05/19/22 1:16 UA Blood) AM) [facility] AND [id number] 06:16:00 Test Item Value Reference Range Interpretation Comments UA Urobilinogen (test code = UA 0.2 0.1-1.0 Urobilinogen) [facility] AND [id number] 06:16:00 Test Item Value Reference Range Interpretation Comments UA Nitrite (test code Negative (05/19/22 1:16 = UA Nitrite) AM) [facility] AND [id number] 06:16:00 Test Item Value Reference Range Interpretation Comments UA Leuk Est (test Negative (05/19/22 1:16 code = UA Leuk Est) AM) [facility] [id number] 06:16:00 Test Item Value Reference Range Interpretation Comments UA Sq Epi (test code = UA Sq Epi) Rare /LPF [facility] [id number] 06:16:00 Test Item Value Reference Range Interpretation Comments UA WBC (test code = no gt See_Comment [Automa leydi message] The UA WBC) system which ge nerated this result transmit leydi reference range : <=5. The reference range was not used to interpr et this result as krishna l/abnormal. [facility] [id number] 06:16:00 Test Item Value Reference Range Interpretation Comments UA RBC (test code = 1 See_Comment [Automa leydi message] The UA RBC) system which ge nerated this result transmit leydi reference range : <=2. The reference range was not used to interpr et this result as krishna l/abnormal. [facility] [id number] 03:27:00 Test Item Value Reference Range Interpretation Comments HS Troponin I Baseline (test code = HS 48 Troponin I Baseline) [facility] [id number] 03:18:00 Test Item Value Reference Range Interpretation Comments HS Troponin I (test code = HS Troponin 59 I) [facility] [id number] 03:18:00 Test Item Value Reference Range Interpretation Comments Phosphorus (test code = Phosphorus) 2.7 2.5-4.5 [facility]orexannCHEM [id number] 03:18:00 Test Item Value Reference Range Interpretation Comments Magnesium Lvl (test code = Magnesium 2.2 1.8-2.4 Lvl) [facility]xannPARATHYROID [id number] 03:18:00 Test Item Value Reference Range Interpretation Comments Ca Ion WB (test code = Ca Ion WB) 1.07 1.05-1.25 [facility]xannPARATHYROID [id number] 03:18:00 Test Item Value Reference Range Interpretation Comments Ca Ion at pH 7.4 WB (test code = Ca Ion 1.09 1.05-1.25 at pH 7.4 WB) [facility] [id number] 01:30:00 Test Item Value Reference Range Interpretation Comments HS Troponin I 1 Hr (test code = HS 41 Troponin I 1 Hr) [facility] [id number] 01:30:00 Test Item Value Reference Range Interpretation Comments HS Troponin I 0 to 1 xxxxxxx (05/18/22 8:30 Hour Delta (test code = PM) HS Troponin I 0 to 1 Hour Delta) [facility]2022-10-08 01:30:00 Test Item Value Reference Range Interpretation Comments Glucose Lvl (test code = Glucose Lvl) 107 70-99 [facility]2022-10-08 01:30:00 Test Item Value Reference Range Interpretation Comments BUN (test code = BUN) 18 - [facility]2022-10-08 01:30:00 Test Item Value Reference Range Interpretation Comments Creatinine Lvl (test code = Creatinine 1.37 0.50-1.40 Lvl) [facility]2022-10-08 01:30:00 Test Item Value Reference Range Interpretation Comments Sodium Lvl (test code = Sodium Lvl) 137 135-145 [facility]2022-10-08 01:30:00 Test Item Value Reference Range Interpretation Comments Potassium Lvl (test code = Potassium 3.8 3.5-5.1 Lvl) [facility]2022-10-08 01:30:00 Test Item Value Reference Range Interpretation Comments Chloride Lvl (test code = Chloride Lvl) 107 95-109 [facility]2022-10-08 01:30:00 Test Item Value Reference Range Interpretation Comments CO2 (test code = CO2) 25 24-32 [place] 942902-10-08 01:30:00 Test Item Value Reference Range Interpretation Comments Calcium Lvl (test code = Calcium Lvl) 9.7 8.5-10.5 [facility]2022-10-08 01:30:00 Test Item Value Reference Range Interpretation Comments Total Protein (test code = Total 7.6 6.4-8.4 Protein) [facility]2022-10-08 01:30:00 Test Item Value Reference Range Interpretation Comments Albumin Lvl (test code = Albumin Lvl) 3.8 3.5-5.0 [facility]2022-10-08 01:30:00 Test Item Value Reference Range Interpretation Comments ALT (test code = ALT) 38 See_Comment [Auto mated message] The system which ge nerated this result transmit leydi reference range : <=65. The reference range was not used to interpr et this result as krishna l/abnormal. [facility]2022-10-08 01:30:00 Test Item Value Reference Range Interpretation Comments AST (test code = AST) 15 See_Comment [Auto mated message] The system which ge nerated this result transmit leydi reference range : <=37. The reference range was not used to interpr et this result as krishna l/abnormal. [facility]2022-10-08 01:30:00 Test Item Value Reference Range Interpretation Comments Alk Phos (test code = Alk Phos) 119 39-136 [facility] [id number] 01:30:00 Test Item Value Reference Range Interpretation Comments Bili Total (test code = Bili Total) 0.6 0.2-1.3 [facility]2022-10-08 01:30:00 Test Item Value Reference Range Interpretation Comments AGAP (test code = AGAP) 8.8 10.0-20.0 [facility]2022-10-08 01:30:00 Test Item Value Reference Range Interpretation Comments B/C Ratio (test code = B/C Ratio) 13 1 6-25 [facility] [id number] 01:30:00 Test Item Value Reference Range Interpretation Comments Globulin (test code = Globulin) 3.8 2.7-4.2 [facility]2022-10-08 01:30:00 Test Item Value Reference Range Interpretation Comments A/G Ratio (test code = A/G Ratio) 1.0 1 0.7-1.6 [facility]2022-10-08 01:30:00 Test Item Value Reference Range Interpretation Comments eGFR (test code = eGFR) 66 [facility] [id number] 01:30:00 Test Item Value Reference Range Interpretation Comments Lipase Lvl (test code = Lipase Lvl) 75 73-393 [facility] CorceuticalsCARDIAC [id number] 20:19:00 Test Item Value Reference Range Interpretation Comments HS Troponin I (test code = HS Troponin 7 I) [facility] [id number] 20:19:00 Test Item Value Reference Range Interpretation Comments Glucose Lvl (test code = Glucose Lvl) 101 70-99 [place] 942902-10-07 20:19:00 Test Item Value Reference Range Interpretation Comments BUN (test code = BUN) 17 7-22 [place] 942902-10-07 20:19:00 Test Item Value Reference Range Interpretation Comments Creatinine Lvl (test code = Creatinine 1.36 0.50-1.40 Lvl) [place] 942902-10-07 20:19:00 Test Item Value Reference Range Interpretation Comments Sodium Lvl (test code = Sodium Lvl) 139 135-145 [place] 942902-10-07 20:19:00 Test Item Value Reference Range Interpretation Comments Potassium Lvl (test code = Potassium 3.6 3.5-5.1 Lvl) [facility]2022-10-07 20:19:00 Test Item Value Reference Range Interpretation Comments Chloride Lvl (test code = Chloride Lvl) 106 95-109 [place] 942902-10-07 20:19:00 Test Item Value Reference Range Interpretation Comments CO2 (test code = CO2) 25 24-32 [place] 942902-10-07 20:19:00 Test Item Value Reference Range Interpretation Comments Calcium Lvl (test code = Calcium Lvl) 9.9 8.5-10.5 [facility]2022-10-07 20:19:00 Test Item Value Reference Range Interpretation Comments AGAP (test code = AGAP) 11.6 10.0-20.0 [facility]2022-10-07 20:19:00 Test Item Value Reference Range Interpretation Comments eGFR (test code = eGFR) 67 [place] 942902-10-07 20:19:00 Test Item Value Reference Range Interpretation Comments Lactic Acid Lvl (test code = Lactic 1.1 0.5-2.2 Acid Lvl) [facility] [id number] 20:19:00 Test Item Value Reference Range Interpretation Comments WBC (test code = WBC) 8.3 3.7-10.4 [place] 367702-10-07 20:19:00 Test Item Value Reference Range Interpretation Comments RBC (test code = RBC) 5.68 4.70-6.10 [place] 367702-10-07 20:19:00 Test Item Value Reference Range Interpretation Comments Hgb (test code = Hgb) 15.6 14.0-18.0 [facility] HospitalFezgeluUACMCWGZSR9557-25-17 20:19:00 Test Item Value Reference Range Interpretation Comments Hct (test code = Hct) 48.0 42.0-54.0 [facility] HospitalUioemxsHBOKSUOHQC1487-14-12 20:19:00 Test Item Value Reference Range Interpretation Comments MCV (test code = MCV) 84.5 80.0-94.0 [facility] HospitalFcaiirkTLEVPGUHEX5789-35-99 20:19:00 Test Item Value Reference Range Interpretation Comments MCH (test code = MCH) 27.4 pg 27.0-31.0 [facility] HospitalLfhphvsTYMUQOTZPP0109-45-22 20:19:00 Test Item Value Reference Range Interpretation Comments MCHC (test code = MCHC) 32.4 32.0-36.0 [facility] [id number] 20:19:00 Test Item Value Reference Range Interpretation Comments RDW (test code = RDW) 14.8 11.5-14.5 [facility] HospitalNmfkrkdJXFTVSOYFY2822-80-32 20:19:00 Test Item Value Reference Range Interpretation Comments Platelet (test code = Platelet) 207 133-450 [facility] Hos[id number] 20:19:00 Test Item Value Reference Range Interpretation Comments MPV (test code = MPV) 9.5 7.4-10.4 [facility] HospitalJbwoqrdMAUFFFHNLS7288-28-91 20:19:00 Test Item Value Reference Range Interpretation Comments PT (test code = PT) 12.0 s 12.0-14.7 [place] 367702-10-07 20:19:00 Test Item Value Reference Range Interpretation Comments INR (test code = INR) 0.89 1 0.85-1.17 [place] 79845-10-07 20:19:00 Test Item Value Reference Range Interpretation Comments PTT (test code = PTT) 27.2 s 22.9-35.8 [place] 367702-10-07 20:19:00 Test Item Value Reference Range Interpretation Comments Segs (test code = Segs) 51.5 45.0-75.0 [place] 367702-10-07 20:19:00 Test Item Value Reference Range Interpretation Comments Lymphocytes (test code = Lymphocytes) 38.1 20.0-40.0 [facility] Hospit[id number] 20:19:00 Test Item Value Reference Range Interpretation Comments Monocytes (test code = Monocytes) 6.0 2.0-12.0 [facility] HospitalLhoetfdEUQIEJAFPN7944-40-24 20:19:00 Test Item Value Reference Range Interpretation Comments Eosinophils (test code = 3.9 See_Comment [A utomated message] The Eosinophils) system which ge nerated this result tra nsmitted reference range : <=4.0. The reference r caleb was not used to int erpret this result as normal/abnormal . [facility] HospitalHtseyjzQZFCRUPEKW4352-34-25 20:19:00 Test Item Value Reference Range Interpretation Comments Basophils (test code = 0.5 See_Comment [Aut omated message] The Basophils) system which ge nerated this result tra nsmitted reference range : <=1.0. The reference r caleb was not used to int erpret this result as normal/abnormal . [facility] HospitalAgrkyswVLBRHOOWPU7685-45-32 20:19:00 Test Item Value Reference Range Interpretation Comments Neutrophils # (test code = Neutrophils 4.3 1.5-8.1 #) [facility] HospitalDkhzzgfYFKRRTMRJQ5545-25-56 20:19:00 Test Item Value Reference Range Interpretation Comments Lymphocytes # (test code = Lymphocytes 3.2 1.0-5.5 #) [facility] HospitalSsscepkOKIHQTTZWQ2487-26-25 20:19:00 Test Item Value Reference Range Interpretation Comments Monocytes # (test code 0.5 See_Comment [Aut omated message] The = Monocytes #) system which generated this result tra nsmitted reference range : <=0.8. The reference r caleb was not used to int erpret this result as normal/abnormal . [facility] HospitalOcyushlOOQAXSSGXD0378-48-00 20:19:00 Test Item Value Reference Range Interpretation Comments Eosinophils # (test code 0.3 See_Comment [A utomated message] The = Eosinophils #) system whic h generated this result tra nsmitted reference range : <=0.5. The reference r caleb was not used to int erpret this result as normal/abnormal . [facility] [id number] 05:26:00 Test Item Value Reference Range Interpretation Comments ABO/Rh (test code = ABO/Rh) O POS [facility] [id number] 05:26:00 Test Item Value Reference Range Interpretation Comments Antibody Scrn (test Negative (05/17/22 code = Antibody Scrn) 12:26 AM) [place] 942902-10-06 05:26:00 Test Item Value Reference Range Interpretation Comments Glucose Lvl (test code = Glucose Lvl) 94 70-99 [facility]2022-10-06 05:26:00 Test Item Value Reference Range Interpretation Comments BUN (test code = BUN) 17 7-22 [place] 942902-10-06 05:26:00 Test Item Value Reference Range Interpretation Comments Creatinine Lvl (test code = Creatinine 1.32 0.50-1.40 Lvl) [facility]2022-10-06 05:26:00 Test Item Value Reference Range Interpretation Comments Sodium Lvl (test code = Sodium Lvl) 140 135-145 [facility]2022-10-06 05:26:00 Test Item Value Reference Range Interpretation Comments Potassium Lvl (test code = Potassium 3.9 3.5-5.1 Lvl) [facility]2022-10-06 05:26:00 Test Item Value Reference Range Interpretation Comments Chloride Lvl (test code = Chloride Lvl) 108 95-109 [facility]2022-10-06 05:26:00 Test Item Value Reference Range Interpretation Comments CO2 (test code = CO2) 28 24-32 [facility]2022-10-06 05:26:00 Test Item Value Reference Range Interpretation Comments Calcium Lvl (test code = Calcium Lvl) 9.3 8.5-10.5 [place] 942902-10-06 05:26:00 Test Item Value Reference Range Interpretation Comments AGAP (test code = AGAP) 7.9 10.0-20.0 [facility]2022-10-06 05:26:00 Test Item Value Reference Range Interpretation Comments eGFR (test code = eGFR) 69 [facility] HospitalYwtiyfrLDUPLHTMCH3699-16-13 05:26:00 Test Item Value Reference Range Interpretation Comments Segs (test code = Segs) 46.4 45.0-75.0 [facility] HospitalXtaukwtLKJDBORCXD4873-15-04 05:26:00 Test Item Value Reference Range Interpretation Comments Lymphocytes (test code = Lymphocytes) 43.4 20.0-40.0 [place] 367702-10-06 05:26:00 Test Item Value Reference Range Interpretation Comments Monocytes (test code = Monocytes) 7.2 2.0-12.0 [facility] HospitalVilljtgHULWENABDZ0611-60-20 05:26:00 Test Item Value Reference Range Interpretation Comments Eosinophils (test code = 2.1 See_Comment [A utomated message] The Eosinophils) system which ge nerated this result tra nsmitted reference range : <=4.0. The reference r caleb was not used to int erpret this result as normal/abnormal . [facility] HospitalHjgrwfwHTZPUNEWSE3765-67-64 05:26:00 Test Item Value Reference Range Interpretation Comments Basophils (test code = 0.9 See_Comment [Aut omated message] The Basophils) system which ge nerated this result tra nsmitted reference range : <=1.0. The reference r caleb was not used to int erpret this result as normal/abnormal . [facility] HospitalDdyovmkYTVITOCWOP6777-01-23 05:26:00 Test Item Value Reference Range Interpretation Comments Neutrophils # (test code = Neutrophils 3.9 1.5-8.1 #) [facility] HospitalRafwaplSGDRKCVUWJ2261-46-65 05:26:00 Test Item Value Reference Range Interpretation Comments Lymphocytes # (test code = Lymphocytes 3.7 1.0-5.5 #) [facility] HospitalMmqykqiZZOSFRBSNH0921-33-07 05:26:00 Test Item Value Reference Range Interpretation Comments Monocytes # (test code 0.6 See_Comment [Aut omated message] The = Monocytes #) system which generated this result tra nsmitted reference range : <=0.8. The reference r caleb was not used to int erpret this result as normal/abnormal . [facility] HospitalHqgxzdqUKNHBIHXZY3622-75-46 05:26:00 Test Item Value Reference Range Interpretation Comments Eosinophils # (test code 0.2 See_Comment [A utomated message] The = Eosinophils #) system ic h generated this result tra nsmitted reference range : <=0.5. The reference r caleb was not used to int erpret this result as normal/abnormal . [facility] HospitalJpswwbqVYKSAYBKAJ8334-16-18 05:26:00 Test Item Value Reference Range Interpretation Comments Basophils # (test code 0.1 See_Comment [Aut omated message] The = Basophils #) system which generated this result tra nsmitted reference range : <=0.2. The reference r caleb was not used to int erpret this result as normal/abnormal . [facility] HospitalCtyyplfBMXZSTDHLV7845-53-16 05:26:00 Test Item Value Reference Range Interpretation Comments WBC (test code = WBC) 8.4 3.7-10.4 [facility] HospitalArtbaotQEMMUOUIRX7180-69-84 05:26:00 Test Item Value Reference Range Interpretation Comments RBC (test code = RBC) 4.95 4.70-6.10 [place] 367702-10-06 05:26:00 Test Item Value Reference Range Interpretation Comments Hgb (test code = Hgb) 13.7 14.0-18.0 [place] 367702-10-06 05:26:00 Test Item Value Reference Range Interpretation Comments Hct (test code = Hct) 41.5 42.0-54.0 [place] 367702-10-06 05:26:00 Test Item Value Reference Range Interpretation Comments MCV (test code = MCV) 83.7 80.0-94.0 [place] 367702-10-06 05:26:00 Test Item Value Reference Range Interpretation Comments MCH (test code = MCH) 27.6 pg 27.0-31.0 [facility] HospitalPnbzmyfCUFVUFUAMV6026-31-79 05:26:00 Test Item Value Reference Range Interpretation Comments MCHC (test code = MCHC) 33.0 32.0-36.0 [facility] HospitalAftqtvvPFKZAXPXYK0579-04-02 05:26:00 Test Item Value Reference Range Interpretation Comments RDW (test code = RDW) 14.6 11.5-14.5 [place] 367702-10-06 05:26:00 Test Item Value Reference Range Interpretation Comments Platelet (test code = Platelet) 187 133-450 [facility] HospitalKrxmzliAIYMSMUFKS4698-26-12 05:26:00 Test Item Value Reference Range Interpretation Comments MPV (test code = MPV) 9.7 7.4-10.4 [place] 367702-10-06 05:26:00 Test Item Value Reference Range Interpretation Comments PTT (test code = PTT) 25.7 s 22.9-35.8 [place] 367702-10-06 05:26:00 Test Item Value Reference Range Interpretation Comments PT (test code = PT) 11.9 s 12.0-14.7 [place] 367702-10-06 05:26:00 Test Item Value Reference Range Interpretation Comments INR (test code = INR) 0.88 1 0.85-1.17 [place] [address]-10-06 05:26:00 Test Item Value Reference Range Interpretation Comments TEG Interp (test Thromboelastograph results code = TEG show shortened value of R. Interp) This finding is suggestive of enzymatic hypercoagulation. CPT:[id number] [facility] HospitalAmzhdbgXPORFAAQQZ2746-87-21 05:26:00 Test Item Value Reference Range Interpretation Comments R-time (test code = R-time) 4.5 min 5.0-10.0 [place] 367702-10-06 05:26:00 Test Item Value Reference Range Interpretation Comments K-time (test code = K-time) 1.2 min 1.0-3.0 [place] 367702-10-06 05:26:00 Test Item Value Reference Range Interpretation Comments Angle (test code = Angle) 71.2 degrees 53.0-72.0 [place] 367702-10-06 05:26:00 Test Item Value Reference Range Interpretation Comments Max Amp (test code = Max Amp) 61.8 mm 50.0-70.0 [place] 367702-10-06 05:26:00 Test Item Value Reference Range Interpretation Comments G-value (test code = G-value) 8.1 4.5-11.0 [place] 367702-10-06 05:26:00 Test Item Value Reference Range Interpretation Comments Ly30 (test code = 0.3 See_Comment [Automate d message] The Ly30) system which ge nerated this result transmit leydi reference range : <=7.5. The reference range was not used to interpr et this result as krishna l/abnormal. [place] [address]-10-06 05:26:00 Test Item Value Reference Range Interpretation Comments Coag Index (test code 1.8 1 See_Comment [Auto mated message] The = Coag Index) system which g enerated this result transmit leydi reference range : <=3.0. The reference range was not used to interpr et this result as krishna l/abnormal. [facility] HospitalKtvhqteVAVBGMBQHY5272-56-47 05:26:00 Test Item Value Reference Range Interpretation Comments TEG Data (test code = See Note (05/17/22 12:26 TEG Data) AM) [facility] HospitalHqxktvuTRLDPNWVLL5694-48-80 03:56:00 Test Item Value Reference Range Interpretation Comments Coronavirus (COVID-19) Not Detected (05/16/22 LIZBETH (test code = 10:56 PM) Coronavirus (COVID-19) LIZBETH) [facility] HospitalHulclktDOSOOBYKIB5565-87-33 23:51:55 Test Item Value Reference Range Interpretation Comments WBC X 10x3 (test code = WBC X 10x3) 9.1 3.7-10.4 [facility] HospitalHzinyekRRHNFGTNIH3152-22-42 23:51:55 Test Item Value Reference Range Interpretation Comments RBC X 10x6 (test code = RBC X 10x6) 4.96 4.70-6.10 [facility] HospitalCclwddmCJJWQQNSEL4188-54-65 23:51:55 Test Item Value Reference Range Interpretation Comments Hgb (test code = Hgb) 13.7 14.0-18.0 [facility] HospitalZrridqdEHLZBJCPKS9673-84-81 23:51:55 Test Item Value Reference Range Interpretation Comments Hct (test code = Hct) 42.3 42.0-54.0 [facility] HospitalNpmqqjbSULNGXCJCN3359-78-96 23:51:55 Test Item Value Reference Range Interpretation Comments MCV (test code = MCV) 85.3 80.0-94.0 [facility] HospitalOpcnfwgKUBWSZZTAO0269-28-47 23:51:55 Test Item Value Reference Range Interpretation Comments MCH (test code = MCH) 27.6 pg 27.0-31.0 [facility]OzproesRDWUVODDXH7076-56-86 23:51:55 Test Item Value Reference Range Interpretation Comments MCHC (test code = MCHC) 32.4 32.0-36.0 [facility] HospitalNkzaovxAJSCTXRHHR4164-14-57 23:51:55 Test Item Value Reference Range Interpretation Comments RDW (test code = RDW) 14.7 11.5-14.5 [facility] HospitalOyjywyzGQBAMMKHEN2691-27-79 23:51:55 Test Item Value Reference Range Interpretation Comments Platelet (test code = Platelet) 183 133-450 [facility] HospitalCmxyqknEYVQVVKVIW0680-12-24 23:51:55 Test Item Value Reference Range Interpretation Comments MPV (test code = MPV) 9.2 7.4-10.4 [place] [address]-10-05 23:51:55 Test Item Value Reference Range Interpretation Comments Segs (test code = Segs) 56.1 45.0-75.0 [place] [address]-10-05 23:51:55 Test Item Value Reference Range Interpretation Comments Lymphocytes (test code = Lymphocytes) 35.0 20.0-40.0 [place] [address]-10-05 23:51:55 Test Item Value Reference Range Interpretation Comments Monocytes (test code = Monocytes) 6.5 2.0-12.0 [place] [address]-10-05 23:51:55 Test Item Value Reference Range Interpretation Comments Eosinophils (test code = 1.8 See_Comment [A utomated message] The Eosinophils) system which ge nerated this result tra nsmitted reference range : <=4.0. The reference r caleb was not used to int erpret this result as normal/abnormal . [facility] HospitalMlpyhpsDHALJGAUAA2293-81-29 23:51:55 Test Item Value Reference Range Interpretation Comments Basophils (test code = 0.6 See_Comment [Aut omated message] The Basophils) system which ge nerated this result tra nsmitted reference range : <=1.0. The reference r caleb was not used to int erpret this result as normal/abnormal . [facility] HospitalOudijukKPQPGJRWWU9274-17-55 23:51:55 Test Item Value Reference Range Interpretation Comments Neutrophils # (test code = Neutrophils 5.1 1.5-8.1 #) [place] [address]-10-05 23:51:55 Test Item Value Reference Range Interpretation Comments Lymphocytes # (test code = Lymphocytes 3.2 1.0-5.5 #) [place] [address]-10-05 23:51:55 Test Item Value Reference Range Interpretation Comments Monocytes # (test code 0.6 See_Comment [Aut omated message] The = Monocytes #) system which generated this result tra nsmitted reference range : <=0.8. The reference r caleb was not used to int erpret this result as normal/abnormal . [facility] HospitalNvedoksQZDXGUCNGO1432-88-87 23:51:55 Test Item Value Reference Range Interpretation Comments Eosinophils # (test code 0.2 See_Comment [A utomated message] The = Eosinophils #) system whic h generated this result tra nsmitted reference range : <=0.5. The reference r caleb was not used to int erpret this result as normal/abnormal . [facility] HospitalBACTERIAL - [id number] 17:30:00 Test Item Value Reference Range Interpretation Comments Source Strep (test code Cerebral Spinal Fluid = Source Strep) [facility] HospitalBACT[facility] - [id number] 17:30:00 Test Item Value Reference Range Interpretation Comments Strep pneumoniae Ag Negative (05/12/22 (test code = Strep 12:30 PM) pneumoniae Ag) [facility] [id number] 17:30:00 Test Item Value Reference Range Interpretation Comments Tube Num CSF (test code = Tube Num CSF) 1 1 [facility] [id number] 17:30:00 Test Item Value Reference Range Interpretation Comments Color CSF (test code Colorless (05/12/22 12:30 = Color CSF) PM) [facility] [id number] 17:30:00 Test Item Value Reference Range Interpretation Comments Clarity CSF (test code = Clear (05/12/22 12:30 Clarity CSF) PM) [facility] [id number] 17:30:00 Test Item Value Reference Range Interpretation Comments Supernat CSF (test Colorless (05/12/22 code = Supernat CSF) 12:30 PM) [facility] [id number] 17:30:00 Test Item Value Reference Range Interpretation Comments Nucleated Cells CSF 4 See_Comment [Automa leydi message] The (test code = Nucleated syste m which generated Cells CSF) this result tra nsmitted reference range : <=53. The reference r caleb was not used to int erpret this result as normal/abnormal . [facility] [id number] 17:30:00 Test Item Value Reference Range Interpretation Comments RBC CSF (test code = 1 See_Comment [Autom ated message] The RBC CSF) system which ge nerated this result transmit leydi reference range : <=03. The reference range was not used to interpr et this result as krishna l/abnormal. [facility]2022-10-01 17:30:00 Test Item Value Reference Range Interpretation Comments Comment CSF (test Differential not code = Comment CSF) performed on WBC count of less than 5. [facility] [id number] 17:30:00 Test Item Value Reference Range Interpretation Comments Glucose CSF (test code = Glucose CSF) 71 45-80 [facility] UTNOTK6831-55-27 17:30:00 Test Item Value Reference Range Interpretation Comments Protein CSF (test code = Protein CSF) 195 15-45 [facility] HospitalGram Stain Mudjhv2266-85-53 17:30:00 Test Item Value Reference Range Interpretation Comments Gram Stain Report Gram Stain Performed By: (test code = Gram [facility] Stain Report) [facility] w/Gram [id number] 17:30:00 Test Item Value Reference Range Interpretation Comments Culture: CSF w/Gram 48 Hour Report - No Stain (test code = Growth, Holding Culture: CSF w/Gram Stain) [facility] [id number] 10:41:00 Test Item Value Reference Range Interpretation Comments Glucose Lvl (test code = Glucose Lvl) 149 70-99 [facility] [id number] 10:41:00 Test Item Value Reference Range Interpretation Comments BUN (test code = BUN) 12 7-22 [facility] [id number] 10:41:00 Test Item Value Reference Range Interpretation Comments Creatinine Lvl (test code = Creatinine 1.37 0.50-1.40 Lvl) [facility] [id number] 10:41:00 Test Item Value Reference Range Interpretation Comments Sodium Lvl (test code = Sodium Lvl) 142 135-145 [facility] [id number] 10:41:00 Test Item Value Reference Range Interpretation Comments Potassium Lvl (test code = Potassium 3.9 3.5-5.1 Lvl) [facility] [id number] 10:41:00 Test Item Value Reference Range Interpretation Comments Chloride Lvl (test code = Chloride Lvl) 110 95-109 [facility] [id number] 10:41:00 Test Item Value Reference Range Interpretation Comments CO2 (test code = CO2) 26 24-32 [facility] [id number] 10:41:00 Test Item Value Reference Range Interpretation Comments Calcium Lvl (test code = Calcium Lvl) 9.3 8.5-10.5 [facility]2022-10-01 10:41:00 Test Item Value Reference Range Interpretation Comments AGAP (test code = AGAP) 9.9 10.0-20.0 [facility]2022-10-01 10:41:00 Test Item Value Reference Range Interpretation Comments eGFR (test code = eGFR) 66 [place] 942902-10-01 10:41:00 Test Item Value Reference Range Interpretation Comments Total Protein (test code = Total 7.2 6.4-8.4 Protein) [facility]2022-10-01 10:41:00 Test Item Value Reference Range Interpretation Comments Albumin Lvl (test code = Albumin Lvl) 3.5 3.5-5.0 [place] 942902-10-01 10:41:00 Test Item Value Reference Range Interpretation Comments Globulin (test code = Globulin) 3.7 2.7-4.2 [facility]2022-10-01 10:41:00 Test Item Value Reference Range Interpretation Comments A/G Ratio (test code = A/G Ratio) 0.9 1 0.7-1.6 [place] 942902-10-01 10:41:00 Test Item Value Reference Range Interpretation Comments ALANINE AMINOTRANSFERASE 32 See_Comment [A utomated message] (test code = ALANINE The sys tem which AMINOTRANSFERASE) generated this result transmitted ref erence range: <=65. Th e reference range was not used to int erpret this result as normal/abnormal . [facility]2022-10-01 10:41:00 Test Item Value Reference Range Interpretation Comments AST (test code = AST) 14 See_Comment [Auto mated message] The system which ge nerated this result transmit leydi reference range : <=37. The reference range was not used to interpr et this result as krishna l/abnormal. [place] 942902-10-01 10:41:00 Test Item Value Reference Range Interpretation Comments Alk Phos (test code = Alk Phos) 110 39-136 [facility]2022-10-01 10:41:00 Test Item Value Reference Range Interpretation Comments Bili Total (test code = Bili Total) 0.3 0.2-1.3 [facility]2022-10-01 10:41:00 Test Item Value Reference Range Interpretation Comments Bili Direct (test code no gt See_Comment [Aut omated message] The = Bili Direct) system which generated this result tra nsmitted reference range : <=0.3. The reference r caleb was not used to int erpret this result as krishna l/abnormal. [facility]2022-10-01 10:41:00 Test Item Value Reference Range Interpretation Comments Bili Indirect Unable to See_Comment [Automated (test code = Bili Calculate message] T he system Indirect) which generated this result transmitted reference range : <=1.0. The reference range was not used to interpret this result as normal/abnormal . [place] 367702-10-01 10:41:00 Test Item Value Reference Range Interpretation Comments WBC X 10x3 (test code = WBC X 10x3) 13.2 3.7-10.4 [place] 367702-10-01 10:41:00 Test Item Value Reference Range Interpretation Comments RBC X 10x6 (test code = RBC X 10x6) 4.65 4.70-6.10 [place] 367702-10-01 10:41:00 Test Item Value Reference Range Interpretation Comments Hgb (test code = Hgb) 12.7 14.0-18.0 [place] [address]-10-01 10:41:00 Test Item Value Reference Range Interpretation Comments Hct (test code = Hct) 39.8 42.0-54.0 [place] 367702-10-01 10:41:00 Test Item Value Reference Range Interpretation Comments MCV (test code = MCV) 85.5 80.0-94.0 [place] [address]-10-01 10:41:00 Test Item Value Reference Range Interpretation Comments MCH (test code = MCH) 27.4 pg 27.0-31.0 [place] 367702-10-01 10:41:00 Test Item Value Reference Range Interpretation Comments MCHC (test code = MCHC) 32.0 32.0-36.0 [place] 367702-10-01 10:41:00 Test Item Value Reference Range Interpretation Comments RDW (test code = RDW) 14.6 11.5-14.5 [facility] HospitalBlukphvWDCSNXLLLZ3472-24-18 10:41:00 Test Item Value Reference Range Interpretation Comments Platelet (test code = Platelet) 217 133-450 [facility] HospitalFmqnhggRXYWNVBLDM0932-64-36 10:41:00 Test Item Value Reference Range Interpretation Comments MPV (test code = MPV) 9.4 7.4-10.4 [facility] HospitalXngfxiwUWSYTUDWZU5336-46-23 10:41:00 Test Item Value Reference Range Interpretation Comments PT (test code = PT) 12.4 s 12.0-14.7 [facility] HospitalWpbyertPBUSSLISWH5311-34-97 10:41:00 Test Item Value Reference Range Interpretation Comments INR (test code = INR) 0.93 1 0.85-1.17 [facility] HospitalMmjsgsoWBWBZHWXQC6687-02-08 10:41:00 Test Item Value Reference Range Interpretation Comments PTT (test code = PTT) 27.5 s 22.9-35.8 [place] 367702-10-01 10:41:00 Test Item Value Reference Range Interpretation Comments Segs (test code = Segs) 80.2 45.0-75.0 [facility] HospitalBzvzxgrAZUHYVSCVN9420-56-76 10:41:00 Test Item Value Reference Range Interpretation Comments Lymphocytes (test code = Lymphocytes) 14.3 20.0-40.0 [facility] HospitalStabryqJLPLDYXITR2171-26-31 10:41:00 Test Item Value Reference Range Interpretation Comments Monocytes (test code = Monocytes) 4.8 2.0-12.0 [facility] HospitalHoahdibBQRBSYKMFM6046-93-16 10:41:00 Test Item Value Reference Range Interpretation Comments Eosinophils (test code = 0.4 See_Comment [A utomated message] The Eosinophils) system which ge nerated this result tra nsmitted reference range : <=4.0. The reference r caleb was not used to int erpret this result as normal/abnormal . [facility] HospitalUakjfcwNKPHKIECJI5090-63-06 10:41:00 Test Item Value Reference Range Interpretation Comments Basophils (test code = 0.3 See_Comment [Aut omated message] The Basophils) system which ge nerated this result tra nsmitted reference range : <=1.0. The reference r caleb was not used to int erpret this result as normal/abnormal . [facility] HospitalAfsvdfbYIXXYSYRPP1517-81-50 10:41:00 Test Item Value Reference Range Interpretation Comments Neutrophils # (test code = Neutrophils 10.6 1.5-8.1 #) [facility] HospitalHroaoseZXUWFMZAJB8307-75-19 10:41:00 Test Item Value Reference Range Interpretation Comments Lymphocytes # (test code = Lymphocytes 1.9 1.0-5.5 #) [place] 367702-10-01 10:41:00 Test Item Value Reference Range Interpretation Comments Monocytes # (test code 0.6 See_Comment [Aut omated message] The = Monocytes #) system which generated this result tra nsmitted reference range : <=0.8. The reference r caleb was not used to int erpret this result as normal/abnormal . [place] 367702-10-01 10:41:00 Test Item Value Reference Range Interpretation Comments Eosinophils # (test code 0.1 See_Comment [A utomated message] The = Eosinophils #) system whic h generated this result tra nsmitted reference range : <=0.5. The reference r caleb was not used to int erpret this result as normal/abnormal . [facility]ay[facility]BSIRKXHNK9010[facility] 10:41:00 Test Item Value Reference Range Interpretation Comments Hep C Ab (test code = Hep C Ab) NON-REACTIVE [place] [address]-10-01 10:41:00 Test Item Value Reference Range Interpretation Comments Hep Signal to Cut-Off (test code = Hep 0.07 1 Signal to Cut-Off) [place] [address]-10-01 10:41:00 Test Item Value Reference Range Interpretation Comments [facility] HIV 4th GEN (test Negative *NA*(05/12/22 code = CDC HIV 4th 5:41 AM) GEN) [facility]2022-02-28 21:33:00 Test Item Value Reference Range Interpretation Comments Glucose Lvl (test code = Glucose Lvl) 114 70-99 [facility]2022-02-28 21:33:00 Test Item Value Reference Range Interpretation Comments BUN (test code = BUN) 14 7-22 [facility]2022-02-28 21:33:00 Test Item Value Reference Range Interpretation Comments Creatinine Lvl (test code = Creatinine 1.36 0.50-1.40 Lvl) [place] 942902-02-28 21:33:00 Test Item Value Reference Range Interpretation Comments Sodium Lvl (test code = Sodium Lvl) 139 135-145 [place] 942902-02-28 21:33:00 Test Item Value Reference Range Interpretation Comments Potassium Lvl (test code = Potassium 4.6 3.5-5.1 Lvl) [place] 942902-02-28 21:33:00 Test Item Value Reference Range Interpretation Comments Chloride Lvl (test code = Chloride Lvl) 104 95-109 [place] 942902-02-28 21:33:00 Test Item Value Reference Range Interpretation Comments CO2 (test code = CO2) 29 24-32 [place] 942902-02-28 21:33:00 Test Item Value Reference Range Interpretation Comments Calcium Lvl (test code = Calcium Lvl) 9.3 8.5-10.5 [place] 942902-02-28 21:33:00 Test Item Value Reference Range Interpretation Comments AGAP (test code = AGAP) 10.6 10.0-20.0 [place] 942902-02-28 21:33:00 Test Item Value Reference Range Interpretation Comments eGFR (test code = eGFR) 64 [place] 367702-02-28 21:33:00 Test Item Value Reference Range Interpretation Comments WBC (test code = WBC) 5.9 3.7-10.4 [place] [address]-02-28 21:33:00 Test Item Value Reference Range Interpretation Comments RBC (test code = RBC) 4.85 4.70-6.10 [place] [address]-02-28 21:33:00 Test Item Value Reference Range Interpretation Comments Hgb (test code = Hgb) 13.7 14.0-18.0 [address]02-28 21:33:00 Test Item Value Reference Range Interpretation Comments Hct (test code = Hct) 41.5 42.0-54.0 [place] [address]-02-28 21:33:00 Test Item Value Reference Range Interpretation Comments MCV (test code = MCV) 85.4 80.0-94.0 [place] [address]-02-28 21:33:00 Test Item Value Reference Range Interpretation Comments MCH (test code = MCH) 28.2 pg 27.0-31.0 [facility] HospitalCudyrjvAHHHGOQHYA9532-59-92 21:33:00 Test Item Value Reference Range Interpretation Comments MCHC (test code = MCHC) 33.0 32.0-36.0 [facility] HospitalTvgoqivIQZWCILAPY7449-45-83 21:33:00 Test Item Value Reference Range Interpretation Comments RDW (test code = RDW) 14.0 11.5-14.5 [facility] [facility] Hos[id number] 21:33:00 Test Item Value Reference Range Interpretation Comments Platelet (test code = Platelet) 186 133-450 [facility] HospitalJsronigUKMNRYLHUS8507-90-42 21:33:00 Test Item Value Reference Range Interpretation Comments MPV (test code = MPV) 9.1 7.4-10.4 [place] 367702-02-28 21:33:00 Test Item Value Reference Range Interpretation Comments PT (test code = PT) 12.4 s 12.0-14.7 [facility] HospitalKdztmqlFHPKSHNHNK1644-08-36 21:33:00 Test Item Value Reference Range Interpretation Comments INR (test code = INR) 0.93 1 0.85-1.17 [facility] HospitalLdwnhifANZJSYJZUM9486-72-66 21:33:00 Test Item Value Reference Range Interpretation Comments PTT (test code = PTT) 27.8 s 22.9-35.8 [facility] HospitalGzfbttaJBGQQNDXZM0652-22-70 21:33:00 Test Item Value Reference Range Interpretation Comments Segs (test code = Segs) 73.9 45.0-75.0 [facility] HospitalAnbzfjpQPMGJOOBUA7375-99-94 21:33:00 Test Item Value Reference Range Interpretation Comments Lymphocytes (test code = Lymphocytes) 18.2 20.0-40.0 [place] 367702-02-28 21:33:00 Test Item Value Reference Range Interpretation Comments Monocytes (test code = Monocytes) 3.4 2.0-12.0 [place] 367702-02-28 21:33:00 Test Item Value Reference Range Interpretation Comments Eosinophils (test code = 4.2 See_Comment [A utomated message] The Eosinophils) system which ge nerated this result tra nsmitted reference range : <=4.0. The reference r caleb was not used to int erpret this result as normal/abnormal . [place] [address]-02-28 21:33:00 Test Item Value Reference Range Interpretation Comments Basophils (test code = 0.3 See_Comment [Aut omated message] The Basophils) system which ge nerated this result tra nsmitted reference range : <=1.0. The reference r caleb was not used to int erpret this result as normal/abnormal . [place] 367702-02-28 21:33:00 Test Item Value Reference Range Interpretation Comments Neutrophils # (test code = Neutrophils 4.4 1.5-8.1 #) [place] 367702-02-28 21:33:00 Test Item Value Reference Range Interpretation Comments Lymphocytes # (test code = Lymphocytes 1.1 1.0-5.5 #) [place] 367702-02-28 21:33:00 Test Item Value Reference Range Interpretation Comments Monocytes # (test code 0.2 See_Comment [Aut omated message] The = Monocytes #) system which generated this result tra nsmitted reference range : <=0.8. The reference r caleb was not used to int erpret this result as normal/abnormal . [place] 367702-02-28 21:33:00 Test Item Value Reference Range Interpretation Comments Eosinophils # (test code 0.2 See_Comment [A utomated message] The = Eosinophils #) system whic h generated this result tra nsmitted reference range : <=0.5. The reference r caleb was not used to int erpret this result as normal/abnormal . [facility]2022-02-28 21:33:00 Test Item Value Reference Range Interpretation Comments Glucose Lvl (test code = Glucose Lvl) 114 70-99 [place] 942902-02-28 21:33:00 Test Item Value Reference Range Interpretation Comments BUN (test code = BUN) 14 7-22 [place] 942902-02-28 21:33:00 Test Item Value Reference Range Interpretation Comments Creatinine Lvl (test code = Creatinine 1.36 0.50-1.40 Lvl) [place] 942902-02-28 21:33:00 Test Item Value Reference Range Interpretation Comments Sodium Lvl (test code = Sodium Lvl) 139 135-145 [place] 942902-02-28 21:33:00 Test Item Value Reference Range Interpretation Comments Potassium Lvl (test code = Potassium 4.6 3.5-5.1 Lvl) [place] 942902-02-28 21:33:00 Test Item Value Reference Range Interpretation Comments Chloride Lvl (test code = Chloride Lvl) 104 95-109 [place] 942902-02-28 21:33:00 Test Item Value Reference Range Interpretation Comments CO2 (test code = CO2) 29 24-32 [place] 942902-02-28 21:33:00 Test Item Value Reference Range Interpretation Comments Calcium Lvl (test code = Calcium Lvl) 9.3 8.5-10.5 [place] 942902-02-28 21:33:00 Test Item Value Reference Range Interpretation Comments AGAP (test code = AGAP) 10.6 10.0-20.0 [place] 942902-02-28 21:33:00 Test Item Value Reference Range Interpretation Comments eGFR (test code = eGFR) 64 [place] 367702-02-28 21:33:00 Test Item Value Reference Range Interpretation Comments WBC (test code = WBC) 5.9 3.7-10.4 [place] 367702-02-28 21:33:00 Test Item Value Reference Range Interpretation Comments RBC (test code = RBC) 4.85 4.70-6.10 [place] 367702-02-28 21:33:00 Test Item Value Reference Range Interpretation Comments Hgb (test code = Hgb) 13.7 14.0-18.0 [place] 367702-02-28 21:33:00 Test Item Value Reference Range Interpretation Comments Hct (test code = Hct) 41.5 42.0-54.0 [place] 367702-02-28 21:33:00 Test Item Value Reference Range Interpretation Comments MCV (test code = MCV) 85.4 80.0-94.0 [place] [address]-02-28 21:33:00 Test Item Value Reference Range Interpretation Comments MCH (test code = MCH) 28.2 pg 27.0-31.0 [place] 367702-02-28 21:33:00 Test Item Value Reference Range Interpretation Comments MCHC (test code = MCHC) 33.0 32.0-36.0 [place] [address]-02-28 21:33:00 Test Item Value Reference Range Interpretation Comments RDW (test code = RDW) 14.0 11.5-14.5 [address]02-28 21:33:00 Test Item Value Reference Range Interpretation Comments Platelet (test code = Platelet) 186 133-450 [place] 367702-02-28 21:33:00 Test Item Value Reference Range Interpretation Comments MPV (test code = MPV) 9.1 7.4-10.4 [place] [address]-02-28 21:33:00 Test Item Value Reference Range Interpretation Comments PT (test code = PT) 12.4 s 12.0-14.7 [address]02-28 21:33:00 Test Item Value Reference Range Interpretation Comments INR (test code = INR) 0.93 1 0.85-1.17 [address]02-28 21:33:00 Test Item Value Reference Range Interpretation Comments PTT (test code = PTT) 27.8 s 22.9-35.8 [place] [address]-02-28 21:33:00 Test Item Value Reference Range Interpretation Comments Segs (test code = Segs) 73.9 45.0-75.0 [place] [address]-02-28 21:33:00 Test Item Value Reference Range Interpretation Comments Lymphocytes (test code = Lymphocytes) 18.2 20.0-40.0 [place] [address]-02-28 21:33:00 Test Item Value Reference Range Interpretation Comments Monocytes (test code = Monocytes) 3.4 2.0-12.0 [place] [address]-02-28 21:33:00 Test Item Value Reference Range Interpretation Comments Eosinophils (test code = 4.2 See_Comment [A utomated message] The Eosinophils) system which ge nerated this result tra nsmitted reference range : <=4.0. The reference r caleb was not used to int erpret this result as normal/abnormal . [place] [address]-02-28 21:33:00 Test Item Value Reference Range Interpretation Comments Basophils (test code = 0.3 See_Comment [Aut omated message] The Basophils) system which ge nerated this result tra nsmitted reference range : <=1.0. The reference r caleb was not used to int erpret this result as normal/abnormal . [place] 367702-02-28 21:33:00 Test Item Value Reference Range Interpretation Comments Neutrophils # (test code = Neutrophils 4.4 1.5-8.1 #) [place] 367702-02-28 21:33:00 Test Item Value Reference Range Interpretation Comments Lymphocytes # (test code = Lymphocytes 1.1 1.0-5.5 #) [place] 367702-02-28 21:33:00 Test Item Value Reference Range Interpretation Comments Monocytes # (test code 0.2 See_Comment [Aut omated message] The = Monocytes #) system which generated this result tra nsmitted reference range : <=0.8. The reference r caleb was not used to int erpret this result as normal/abnormal . [place] 367702-02-28 21:33:00 Test Item Value Reference Range Interpretation Comments Eosinophils # (test code 0.2 See_Comment [A utomated message] The = Eosinophils #) system whic h generated this result tra nsmitted reference range : <=0.5. The reference r caleb was not used to int erpret this result as normal/abnormal . [facility]2022-02-28 20:31:00 Test Item Value Reference Range Interpretation Comments Glucose CSF (test code = Glucose CSF) 77 45-80 [facility]2022-02-28 20:31:00 Test Item Value Reference Range Interpretation Comments Protein CSF (test code = Protein CSF) 33 15-45 [place] 694442-02-28 20:31:00 Test Item Value Reference Range Interpretation Comments Tube Num CSF (test xxxxxxx (10/09/21 2:31 code = Tube Num CSF) PM) [place] 694442-02-28 20:31:00 Test Item Value Reference Range Interpretation Comments Color CSF (test code Colorless (10/09/21 2:31 = Color CSF) PM) [place] 694442-02-28 20:31:00 Test Item Value Reference Range Interpretation Comments Clarity CSF (test code = Clear (10/09/21 2:31 Clarity CSF) PM) [place] 694442-02-28 20:31:00 Test Item Value Reference Range Interpretation Comments Supernat CSF (test Colorless (10/09/21 2:31 code = Supernat CSF) PM) [facility]2022-02-28 20:31:00 Test Item Value Reference Range Interpretation Comments Nucleated Cells CSF 9 See_Comment [Automa leydi message] The (test code = Nucleated syste m which generated Cells CSF) this result tra nsmitted reference range : <=53. The reference r caleb was not used to int erpret this result as normal/abnormal . [facility]2022-02-28 20:31:00 Test Item Value Reference Range Interpretation Comments RBC CSF (test code = 280 See_Comment [Autom ated message] The RBC CSF) system which ge nerated this result transmit leydi reference range : <=03. The reference range was not used to interpr et this result as krishna l/abnormal. [facility]2022-02-28 20:31:00 Test Item Value Reference Range Interpretation Comments Neutrophils CSF (test 64 See_Comment [Auto mated message] The code = Neutrophils CSF) syst em which generated this result tra nsmitted reference range : <=6. The reference r caleb was not used to int erpret this result as normal/abnormal . [facility]2022-02-28 20:31:00 Test Item Value Reference Range Interpretation Comments Lymph CSF (test code = Lymph CSF) 30 40-80 [facility]2022-02-28 20:31:00 Test Item Value Reference Range Interpretation Comments Monocyte CSF (test code = Monocyte CSF) 6 15-45 [facility] [id number] 20:31:00 Test Item Value Reference Range Interpretation Comments Culture: Anaerobic No Anaerobes Isolated (test code = Culture: After 3 Days Anaerobic) [facility] Hospital[facility] Stain [id number] 20:31:00 Test Item Value Reference Range Interpretation Comments Gram Stain Report Few Wbc'S; No Organisms (test code = Gram Seen Stain Report) [facility] CSF w/Gram [id number] 20:31:00 Test Item Value Reference Range Interpretation Comments Culture: CSF w/Gram 72 Hour Report - No Stain (test code = Growth, Holding Culture: CSF w/Gram Stain) [facility]2022-02-28 20:31:00 Test Item Value Reference Range Interpretation Comments Glucose CSF (test code = Glucose CSF) 77 45-80 [facility]2022-02-28 20:31:00 Test Item Value Reference Range Interpretation Comments Protein CSF (test code = Protein CSF) 33 15-45 [facility]2022-02-28 20:31:00 Test Item Value Reference Range Interpretation Comments Tube Num CSF (test xxxxxxx (10/09/21 2:31 code = Tube Num CSF) PM) [facility]2022-02-28 20:31:00 Test Item Value Reference Range Interpretation Comments Color CSF (test code Colorless (10/09/21 2:31 = Color CSF) PM) [facility]2022-02-28 20:31:00 Test Item Value Reference Range Interpretation Comments Clarity CSF (test code = Clear (10/09/21 2:31 Clarity CSF) PM) [facility]2022-02-28 20:31:00 Test Item Value Reference Range Interpretation Comments Supernat CSF (test Colorless (10/09/21 2:31 code = Supernat CSF) PM) [facility]2022-02-28 20:31:00 Test Item Value Reference Range Interpretation Comments Nucleated Cells CSF 9 See_Comment [Automa leydi message] The (test code = Nucleated syste m which generated Cells CSF) this result tra nsmitted reference range : <=53. The reference r caleb was not used to int erpret this result as normal/abnormal . [facility]2022-02-28 20:31:00 Test Item Value Reference Range Interpretation Comments RBC CSF (test code = 280 See_Comment [Autom ated message] The RBC CSF) system which ge nerated this result transmit leydi reference range : <=03. The reference range was not used to interpr et this result as krishna l/abnormal. [facility]2022-02-28 20:31:00 Test Item Value Reference Range Interpretation Comments Neutrophils CSF (test 64 See_Comment [Auto mated message] The code = Neutrophils CSF) syst em which generated this result tra nsmitted reference range : <=6. The reference r caleb was not used to int erpret this result as normal/abnormal . [facility]2022-02-28 20:31:00 Test Item Value Reference Range Interpretation Comments Lymph CSF (test code = Lymph CSF) 30 40-80 [facility] [id number] 20:31:00 Test Item Value Reference Range Interpretation Comments Monocyte CSF (test code = Monocyte CSF) 6 15-45 [facility]: [id number] 20:31:00 Test Item Value Reference Range Interpretation Comments Culture: Anaerobic No Anaerobes Isolated (test code = Culture: After 3 Days Anaerobic) [facility] HospitalGram Stain [id number] 20:31:00 Test Item Value Reference Range Interpretation Comments Gram Stain Report Few Wbc'S; No Organisms (test code = Gram Seen Stain Report) [facility] CSF w/Gram [id number] 20:31:00 Test Item Value Reference Range Interpretation Comments Culture: CSF w/Gram 72 Hour Report - No Stain (test code = Growth, Holding Culture: CSF w/Gram Stain) [facility]2022-02-28 08:57:00 Test Item Value Reference Range Interpretation Comments Glucose Lvl (test code = Glucose Lvl) 109 70-99 [facility]2022-02-28 08:57:00 Test Item Value Reference Range Interpretation Comments BUN (test code = BUN) 17 7-22 [facility]2022-02-28 08:57:00 Test Item Value Reference Range Interpretation Comments Creatinine Lvl (test code = Creatinine 1.28 0.50-1.40 Lvl) [facility]2022-02-28 08:57:00 Test Item Value Reference Range Interpretation Comments Sodium Lvl (test code = Sodium Lvl) 140 135-145 [facility]2022-02-28 08:57:00 Test Item Value Reference Range Interpretation Comments Potassium Lvl (test code = Potassium 3.9 3.5-5.1 Lvl) [facility]2022-02-28 08:57:00 Test Item Value Reference Range Interpretation Comments Chloride Lvl (test code = Chloride Lvl) 108 95-109 [facility]2022-02-28 08:57:00 Test Item Value Reference Range Interpretation Comments CO2 (test code = CO2) 27 24-32 [facility]2022-02-28 08:57:00 Test Item Value Reference Range Interpretation Comments Calcium Lvl (test code = Calcium Lvl) 9.5 8.5-10.5 [facility] [id number] 08:57:00 Test Item Value Reference Range Interpretation Comments AGAP (test code = AGAP) 8.9 10.0-20.0 [facility] [id number] 08:57:00 Test Item Value Reference Range Interpretation Comments eGFR (test code = eGFR) 69 [facility] HospitalMujrxchPTRXCVMIQX8686-19-33 08:57:00 Test Item Value Reference Range Interpretation Comments WBC (test code = WBC) 8.5 3.7-10.4 [place] 367702-02-28 08:57:00 Test Item Value Reference Range Interpretation Comments RBC (test code = RBC) 4.69 4.70-6.10 [place] 367702-02-28 08:57:00 Test Item Value Reference Range Interpretation Comments Hgb (test code = Hgb) 13.3 14.0-18.0 [place] 367702-02-28 08:57:00 Test Item Value Reference Range Interpretation Comments Hct (test code = Hct) 40.4 42.0-54.0 [place] 367702-02-28 08:57:00 Test Item Value Reference Range Interpretation Comments MCV (test code = MCV) 86.1 80.0-94.0 [place] 367702-02-28 08:57:00 Test Item Value Reference Range Interpretation Comments MCH (test code = MCH) 28.3 pg 27.0-31.0 [place] 367702-02-28 08:57:00 Test Item Value Reference Range Interpretation Comments MCHC (test code = MCHC) 32.9 32.0-36.0 [place] 367702-02-28 08:57:00 Test Item Value Reference Range Interpretation Comments RDW (test code = RDW) 14.1 11.5-14.5 [place] 367702-02-28 08:57:00 Test Item Value Reference Range Interpretation Comments Platelet (test code = Platelet) 192 133-450 [facility] HospitalQhxxanbEBADAEBOLE3126-28-29 08:57:00 Test Item Value Reference Range Interpretation Comments MPV (test code = MPV) 9.2 7.4-10.4 [place] 367702-02-28 08:57:00 Test Item Value Reference Range Interpretation Comments R-time (test code = R-time) 6.0 min 5.0-10.0 [place] [address]-02-28 08:57:00 Test Item Value Reference Range Interpretation Comments K-time (test code = K-time) 1.4 min 1.0-3.0 [place] [address]-02-28 08:57:00 Test Item Value Reference Range Interpretation Comments Angle (test code = Angle) 69.7 degrees 53.0-72.0 [place] [address]-02-28 08:57:00 Test Item Value Reference Range Interpretation Comments Max Amp (test code = Max Amp) 66.3 mm 50.0-70.0 [place] [address]-02-28 08:57:00 Test Item Value Reference Range Interpretation Comments G-value (test code = G-value) 9.8 4.5-11.0 [place] [address]-02-28 08:57:00 Test Item Value Reference Range Interpretation Comments Ly30 (test code = 0.6 See_Comment [Automate d message] The Ly30) system which ge nerated this result transmit leydi reference range : <=7.5. The reference range was not used to interpr et this result as krishna l/abnormal. [place] 367702-02-28 08:57:00 Test Item Value Reference Range Interpretation Comments Coag Index (test code 1.2 1 See_Comment [Auto mated message] The = Coag Index) system which g enerated this result transmit leydi reference range : <=3.0. The reference range was not used to interpr et this result as krishna l/abnormal. [place] 367702-02-28 08:57:00 Test Item Value Reference Range Interpretation Comments TEG Data (test code = See Note (10/09/21 2:57 TEG Data) AM) [place] [address]-02-28 08:57:00 Test Item Value Reference Range Interpretation Comments PT (test code = PT) 12.1 s 12.0-14.7 [place] 367702-02-28 08:57:00 Test Item Value Reference Range Interpretation Comments INR (test code = INR) 0.90 1 0.85-1.17 [place] 367702-02-28 08:57:00 Test Item Value Reference Range Interpretation Comments PTT (test code = PTT) 27.6 s 22.9-35.8 [place] 367702-02-28 08:57:00 Test Item Value Reference Range Interpretation Comments Segs (test code = Segs) 52.0 45.0-75.0 [place] 367702-02-28 08:57:00 Test Item Value Reference Range Interpretation Comments Lymphocytes (test code = Lymphocytes) 33.8 20.0-40.0 [place] 367702-02-28 08:57:00 Test Item Value Reference Range Interpretation Comments Monocytes (test code = Monocytes) 8.0 2.0-12.0 [place] 367702-02-28 08:57:00 Test Item Value Reference Range Interpretation Comments Eosinophils (test code = 5.8 See_Comment [A utomated message] The Eosinophils) system which ge nerated this result tra nsmitted reference range : <=4.0. The reference r caleb was not used to int erpret this result as normal/abnormal . [place] 367702-02-28 08:57:00 Test Item Value Reference Range Interpretation Comments Basophils (test code = 0.4 See_Comment [Aut omated message] The Basophils) system which ge nerated this result tra nsmitted reference range : <=1.0. The reference r caleb was not used to int erpret this result as normal/abnormal . [place] 367702-02-28 08:57:00 Test Item Value Reference Range Interpretation Comments Neutrophils # (test code = Neutrophils 4.4 1.5-8.1 #) [place] 367702-02-28 08:57:00 Test Item Value Reference Range Interpretation Comments Lymphocytes # (test code = Lymphocytes 2.9 1.0-5.5 #) [place] 367702-02-28 08:57:00 Test Item Value Reference Range Interpretation Comments Monocytes # (test code 0.7 See_Comment [Aut omated message] The = Monocytes #) system which generated this result tra nsmitted reference range : <=0.8. The reference r caleb was not used to int erpret this result as normal/abnormal . [place] 367702-02-28 08:57:00 Test Item Value Reference Range Interpretation Comments Eosinophils # (test code 0.5 See_Comment [A utomated message] The = Eosinophils #) system [employer] h generated this result tra nsmitted reference range : <=0.5. The reference r caleb was not used to int erpret this result as normal/abnormal . [facility] HospitalFyqcomsEMKXPKBWYG3930-43-59 08:57:00 Test Item Value Reference Range Interpretation Comments TEG Interp (test Thrombelastograph results code = TEG are within reference ranges. Interp) Note that TEG does not show effect of NSAIDs or P2Y12 inhibitors. CPT:17308 [facility]2022-02-28 08:57:00 Test Item Value Reference Range Interpretation Comments Glucose Lvl (test code = Glucose Lvl) 109 70-99 [place] 942902-02-28 08:57:00 Test Item Value Reference Range Interpretation Comments BUN (test code = BUN) 17 7-22 [place] 942902-02-28 08:57:00 Test Item Value Reference Range Interpretation Comments Creatinine Lvl (test code = Creatinine 1.28 0.50-1.40 Lvl) [facility]2022-02-28 08:57:00 Test Item Value Reference Range Interpretation Comments Sodium Lvl (test code = Sodium Lvl) 140 135-145 [place] 942902-02-28 08:57:00 Test Item Value Reference Range Interpretation Comments Potassium Lvl (test code = Potassium 3.9 3.5-5.1 Lvl) [place] 942902-02-28 08:57:00 Test Item Value Reference Range Interpretation Comments Chloride Lvl (test code = Chloride Lvl) 108 95-109 [place] 942902-02-28 08:57:00 Test Item Value Reference Range Interpretation Comments CO2 (test code = CO2) 27 24-32 [place] 942902-02-28 08:57:00 Test Item Value Reference Range Interpretation Comments Calcium Lvl (test code = Calcium Lvl) 9.5 8.5-10.5 [place] 942902-02-28 08:57:00 Test Item Value Reference Range Interpretation Comments AGAP (test code = AGAP) 8.9 10.0-20.0 [place] 942902-02-28 08:57:00 Test Item Value Reference Range Interpretation Comments eGFR (test code = eGFR) 69 [facility] HospitalZxcgboaGXVBJTGAPV7843-51-58 08:57:00 Test Item Value Reference Range Interpretation Comments WBC (test code = WBC) 8.5 3.7-10.4 [facility] HospitalZvkgthdMAUAXKQPOE4281-90-87 08:57:00 Test Item Value Reference Range Interpretation Comments RBC (test code = RBC) 4.69 4.70-6.10 [place] 367702-02-28 08:57:00 Test Item Value Reference Range Interpretation Comments Hgb (test code = Hgb) 13.3 14.0-18.0 [place] 367702-02-28 08:57:00 Test Item Value Reference Range Interpretation Comments Hct (test code = Hct) 40.4 42.0-54.0 [place] 367702-02-28 08:57:00 Test Item Value Reference Range Interpretation Comments MCV (test code = MCV) 86.1 80.0-94.0 [place] 367702-02-28 08:57:00 Test Item Value Reference Range Interpretation Comments MCH (test code = MCH) 28.3 pg 27.0-31.0 [place] 367702-02-28 08:57:00 Test Item Value Reference Range Interpretation Comments MCHC (test code = MCHC) 32.9 32.0-36.0 [facility] HospitalNmofvynLEORXXEULZ9735-22-47 08:57:00 Test Item Value Reference Range Interpretation Comments RDW (test code = RDW) 14.1 11.5-14.5 [place] 367702-02-28 08:57:00 Test Item Value Reference Range Interpretation Comments Platelet (test code = Platelet) 192 133-450 [facility] HospitalWicrjfpGKALFALCUK8953-23-35 08:57:00 Test Item Value Reference Range Interpretation Comments MPV (test code = MPV) 9.2 7.4-10.4 [place] 367702-02-28 08:57:00 Test Item Value Reference Range Interpretation Comments R-time (test code = R-time) 6.0 min 5.0-10.0 [place] 367702-02-28 08:57:00 Test Item Value Reference Range Interpretation Comments K-time (test code = K-time) 1.4 min 1.0-3.0 [place] [address]-02-28 08:57:00 Test Item Value Reference Range Interpretation Comments Angle (test code = Angle) 69.7 degrees 53.0-72.0 [place] 367702-02-28 08:57:00 Test Item Value Reference Range Interpretation Comments Max Amp (test code = Max Amp) 66.3 mm 50.0-70.0 [place] 367702-02-28 08:57:00 Test Item Value Reference Range Interpretation Comments G-value (test code = G-value) 9.8 4.5-11.0 [place] [address]-02-28 08:57:00 Test Item Value Reference Range Interpretation Comments Ly30 (test code = 0.6 See_Comment [Automate d message] The Ly30) system which ge nerated this result transmit leydi reference range : <=7.5. The reference range was not used to interpr et this result as krishna l/abnormal. [place] [address]-02-28 08:57:00 Test Item Value Reference Range Interpretation Comments Coag Index (test code 1.2 1 See_Comment [Auto mated message] The = Coag Index) system which g enerated this result transmit leydi reference range : <=3.0. The reference range was not used to interpr et this result as krishna l/abnormal. [place] 367702-02-28 08:57:00 Test Item Value Reference Range Interpretation Comments TEG Data (test code = See Note (10/09/21 2:57 TEG Data) AM) [place] 367702-02-28 08:57:00 Test Item Value Reference Range Interpretation Comments PT (test code = PT) 12.1 s 12.0-14.7 [place] [address]-02-28 08:57:00 Test Item Value Reference Range Interpretation Comments INR (test code = INR) 0.90 1 0.85-1.17 [place] [address]-02-28 08:57:00 Test Item Value Reference Range Interpretation Comments PTT (test code = PTT) 27.6 s 22.9-35.8 [place] [address]-02-28 08:57:00 Test Item Value Reference Range Interpretation Comments Segs (test code = Segs) 52.0 45.0-75.0 [facility] HospitalYpezaftLNJAAESAPD9482-02-32 08:57:00 Test Item Value Reference Range Interpretation Comments Lymphocytes (test code = Lymphocytes) 33.8 20.0-40.0 [facility] HospitalGmdfosjFPSKCSIDME2683-50-14 08:57:00 Test Item Value Reference Range Interpretation Comments Monocytes (test code = Monocytes) 8.0 2.0-12.0 [facility] HospitalIymgsylGWEFPHJSVY7767-10-11 08:57:00 Test Item Value Reference Range Interpretation Comments Eosinophils (test code = 5.8 See_Comment [A utomated message] The Eosinophils) system which ge nerated this result tra nsmitted reference range : <=4.0. The reference r caleb was not used to int erpret this result as normal/abnormal . [facility] HospitalJnahokkUSRBMFVBIU1602-81-13 08:57:00 Test Item Value Reference Range Interpretation Comments Basophils (test code = 0.4 See_Comment [Aut omated message] The Basophils) system which ge nerated this result tra nsmitted reference range : <=1.0. The reference r caleb was not used to int erpret this result as normal/abnormal . [facility] HospitalNindkkqTGHRSKAFRV6077-44-52 08:57:00 Test Item Value Reference Range Interpretation Comments Neutrophils # (test code = Neutrophils 4.4 1.5-8.1 #) [facility] HospitalVkdadnmIQFEXLLKIS2600-57-57 08:57:00 Test Item Value Reference Range Interpretation Comments Lymphocytes # (test code = Lymphocytes 2.9 1.0-5.5 #) [place] 367702-02-28 08:57:00 Test Item Value Reference Range Interpretation Comments Monocytes # (test code 0.7 See_Comment [Aut omated message] The = Monocytes #) system which generated this result tra nsmitted reference range : <=0.8. The reference r caleb was not used to int erpret this result as normal/abnormal . [facility] HospitalFtuavcaCLMUHKDPKJ2350-72-20 08:57:00 Test Item Value Reference Range Interpretation Comments Eosinophils # (test code 0.5 See_Comment [A utomated message] The = Eosinophils #) system whic h generated this result tra nsmitted reference range : <=0.5. The reference r caleb was not used to int erpret this result as normal/abnormal . [place] 367702-02-28 08:57:00 Test Item Value Reference Range Interpretation Comments TEG Interp (test Thrombelastograph results code = TEG are within reference ranges. Interp) Note that TEG does not show effect of NSAIDs or P2Y12 inhibitors. CPT:[id number] [place] 942902-02-28 02:07:26 Test Item Value Reference Range Interpretation Comments Glucose Lvl (test code = Glucose Lvl) 95 70-99 [place] 942902-02-28 02:07:26 Test Item Value Reference Range Interpretation Comments BUN (test code = BUN) 13 7-22 [place] 942902-02-28 02:07:26 Test Item Value Reference Range Interpretation Comments Creatinine Lvl (test code = Creatinine 1.24 0.50-1.40 Lvl) [place] 942902-02-28 02:07:26 Test Item Value Reference Range Interpretation Comments Sodium Lvl (test code = Sodium Lvl) 140 135-145 [place] 942902-02-28 02:07:26 Test Item Value Reference Range Interpretation Comments Potassium Lvl (test code = Potassium 3.7 3.5-5.1 Lvl) [place] 942902-02-28 02:07:26 Test Item Value Reference Range Interpretation Comments Chloride Lvl (test code = Chloride Lvl) 106 95-109 [place] 942902-02-28 02:07:26 Test Item Value Reference Range Interpretation Comments CO2 (test code = CO2) 30 24-32 [place] 942902-02-28 02:07:26 Test Item Value Reference Range Interpretation Comments Calcium Lvl (test code = Calcium Lvl) 9.5 8.5-10.5 [place] 942902-02-28 02:07:26 Test Item Value Reference Range Interpretation Comments AGAP (test code = AGAP) 7.7 10.0-20.0 [place] 942902-02-28 02:07:26 Test Item Value Reference Range Interpretation Comments eGFR (test code = eGFR) 72 [place] 367702-02-28 02:07:26 Test Item Value Reference Range Interpretation Comments WBC X 10x3 (test code = WBC X 10x3) 7.4 3.7-10.4 [place] 367702-02-28 02:07:26 Test Item Value Reference Range Interpretation Comments RBC X 10x6 (test code = RBC X 10x6) 5.06 4.70-6.10 [place] 367702-02-28 02:07:26 Test Item Value Reference Range Interpretation Comments Hgb (test code = Hgb) 14.0 14.0-18.0 [place] 367702-02-28 02:07:26 Test Item Value Reference Range Interpretation Comments Hct (test code = Hct) 43.5 42.0-54.0 [place] 367702-02-28 02:07:26 Test Item Value Reference Range Interpretation Comments MCV (test code = MCV) 85.9 80.0-94.0 [place] 367702-02-28 02:07:26 Test Item Value Reference Range Interpretation Comments MCH (test code = MCH) 27.7 pg 27.0-31.0 [place] 367702-02-28 02:07:26 Test Item Value Reference Range Interpretation Comments MCHC (test code = MCHC) 32.3 32.0-36.0 [place] 367702-02-28 02:07:26 Test Item Value Reference Range Interpretation Comments RDW (test code = RDW) 13.9 11.5-14.5 [place] 367702-02-28 02:07:26 Test Item Value Reference Range Interpretation Comments Platelet (test code = Platelet) 192 133-450 [place] 367702-02-28 02:07:26 Test Item Value Reference Range Interpretation Comments MPV (test code = MPV) 9.1 7.4-10.4 [place] 367702-02-28 02:07:26 Test Item Value Reference Range Interpretation Comments ACT (TEG) Rapid (test code = ACT (TEG) 128 s 86-118 Rapid) [place] 367702-02-28 02:07:26 Test Item Value Reference Range Interpretation Comments Split Point Rapid (test code = Split 0.7 min Point Rapid) [place] 367702-02-28 02:07:26 Test Item Value Reference Range Interpretation Comments R-time Rapid (test code = R-time 0.8 min 0.4-0.7 Rapid) [place] 367702-02-28 02:07:26 Test Item Value Reference Range Interpretation Comments K-time Rapid (test code = K-time 1.1 min 0.6-2.3 Rapid) [place] [address]-02-28 02:07:26 Test Item Value Reference Range Interpretation Comments Angle Rapid (test code = Angle 76 degrees 64-80 Rapid) [place] [address]-02-28 02:07:26 Test Item Value Reference Range Interpretation Comments Max Amplitude Rapid (test code = Max 71 mm 52-71 Amplitude Rapid) [place] [address]-02-28 02:07:26 Test Item Value Reference Range Interpretation Comments G-value Rapid (test code = G-value 12.1 5.0-11.6 Rapid) [place] [address]-02-28 02:07:26 Test Item Value Reference Range Interpretation Comments Estimated % Lysis Rapid 0.8 See_Comment [Au tomated message] The (test code = Estimated syste m which generated % Lysis Rapid) this result t ransmitted reference range : <=7.5. The reference r caleb was not used to int erpret this result as normal/abnormal . [place] 367702-02-28 02:07:26 Test Item Value Reference Range Interpretation Comments PT (test code = PT) 12.5 s 12.0-14.7 [place] [address]-02-28 02:07:26 Test Item Value Reference Range Interpretation Comments INR (test code = INR) 0.94 1 0.85-1.17 [place] 367702-02-28 02:07:26 Test Item Value Reference Range Interpretation Comments PTT (test code = PTT) 29.6 s 22.9-35.8 [place] [address]-02-28 02:07:26 Test Item Value Reference Range Interpretation Comments Segs (test code = Segs) 57.2 45.0-75.0 [place] [address]-02-28 02:07:26 Test Item Value Reference Range Interpretation Comments Lymphocytes (test code = Lymphocytes) 30.9 20.0-40.0 [place] [address]-02-28 02:07:26 Test Item Value Reference Range Interpretation Comments Monocytes (test code = Monocytes) 5.6 2.0-12.0 [address]02-28 02:07:26 Test Item Value Reference Range Interpretation Comments Eosinophils (test code = 5.6 See_Comment [A utomated message] The Eosinophils) system which ge nerated this result tra nsmitted reference range : <=4.0. The reference r caleb was not used to int erpret this result as normal/abnormal . [facility] HospitalBrrezwhMQAXHJVGQQ7702-44-72 02:07:26 Test Item Value Reference Range Interpretation Comments Basophils (test code = 0.7 See_Comment [Aut omated message] The Basophils) system which ge nerated this result tra nsmitted reference range : <=1.0. The reference r caleb was not used to int erpret this result as normal/abnormal . [facility] HospitalHexnjtlFFOEXGWQGR5922-72-16 02:07:26 Test Item Value Reference Range Interpretation Comments Neutrophils # (test code = Neutrophils 4.3 1.5-8.1 #) [place] 367702-02-28 02:07:26 Test Item Value Reference Range Interpretation Comments Lymphocytes # (test code = Lymphocytes 2.3 1.0-5.5 #) [facility] HospitalHftdzvtWDHXRXTVNE4270-54-54 02:07:26 Test Item Value Reference Range Interpretation Comments Monocytes # (test code 0.4 See_Comment [Aut omated message] The = Monocytes #) system which generated this result tra nsmitted reference range : <=0.8. The reference r caleb was not used to int erpret this result as normal/abnormal . [facility] HospitalMbjelsqLSEKMXNHES2743-62-23 02:07:26 Test Item Value Reference Range Interpretation Comments Eosinophils # (test code 0.4 See_Comment [A utomated message] The = Eosinophils #) system whic h generated this result tra nsmitted reference range : <=0.5. The reference r caleb was not used to int erpret this result as normal/abnormal . [facility] HospitalJzzppysSKBCNCBKHN1091-53-97 02:07:26 Test Item Value Reference Range Interpretation Comments Coronavirus (COVID-19) Not Detected (10/08/21 LIZBETH (test code = 8:07 PM) Coronavirus (COVID-19) LIZBETH) [facility] HospitalCHEM [id number] 02:07:26 Test Item Value Reference Range Interpretation Comments Glucose Lvl (test code = Glucose Lvl) 95 70-99 [place] 942902-02-28 02:07:26 Test Item Value Reference Range Interpretation Comments BUN (test code = BUN) 13 7-22 [place] 942902-02-28 02:07:26 Test Item Value Reference Range Interpretation Comments Creatinine Lvl (test code = Creatinine 1.24 0.50-1.40 Lvl) [place] 942902-02-28 02:07:26 Test Item Value Reference Range Interpretation Comments Sodium Lvl (test code = Sodium Lvl) 140 135-145 [place] 942902-02-28 02:07:26 Test Item Value Reference Range Interpretation Comments Potassium Lvl (test code = Potassium 3.7 3.5-5.1 Lvl) [place] 942902-02-28 02:07:26 Test Item Value Reference Range Interpretation Comments Chloride Lvl (test code = Chloride Lvl) 106 95-109 [place] 942902-02-28 02:07:26 Test Item Value Reference Range Interpretation Comments CO2 (test code = CO2) 30 24-32 [place] 942902-02-28 02:07:26 Test Item Value Reference Range Interpretation Comments Calcium Lvl (test code = Calcium Lvl) 9.5 8.5-10.5 [place] 942902-02-28 02:07:26 Test Item Value Reference Range Interpretation Comments AGAP (test code = AGAP) 7.7 10.0-20.0 [place] 942902-02-28 02:07:26 Test Item Value Reference Range Interpretation Comments eGFR (test code = eGFR) 72 [place] 367702-02-28 02:07:26 Test Item Value Reference Range Interpretation Comments WBC X 10x3 (test code = WBC X 10x3) 7.4 3.7-10.4 [place] [address]-02-28 02:07:26 Test Item Value Reference Range Interpretation Comments RBC X 10x6 (test code = RBC X 10x6) 5.06 4.70-6.10 [place] [address]-02-28 02:07:26 Test Item Value Reference Range Interpretation Comments Hgb (test code = Hgb) 14.0 14.0-18.0 [place] [address]-02-28 02:07:26 Test Item Value Reference Range Interpretation Comments Hct (test code = Hct) 43.5 42.0-54.0 [place] 367702-02-28 02:07:26 Test Item Value Reference Range Interpretation Comments MCV (test code = MCV) 85.9 80.0-94.0 [place] [address]-02-28 02:07:26 Test Item Value Reference Range Interpretation Comments MCH (test code = MCH) 27.7 pg 27.0-31.0 [place] 367702-02-28 02:07:26 Test Item Value Reference Range Interpretation Comments MCHC (test code = MCHC) 32.3 32.0-36.0 [place] 367702-02-28 02:07:26 Test Item Value Reference Range Interpretation Comments RDW (test code = RDW) 13.9 11.5-14.5 [place] [address]-02-28 02:07:26 Test Item Value Reference Range Interpretation Comments Platelet (test code = Platelet) 192 133-450 [place] 367702-02-28 02:07:26 Test Item Value Reference Range Interpretation Comments MPV (test code = MPV) 9.1 7.4-10.4 [place] 367702-02-28 02:07:26 Test Item Value Reference Range Interpretation Comments ACT (TEG) Rapid (test code = ACT (TEG) 128 s 86-118 Rapid) [place] 367702-02-28 02:07:26 Test Item Value Reference Range Interpretation Comments Split Point Rapid (test code = Split 0.7 min Point Rapid) [place] 367702-02-28 02:07:26 Test Item Value Reference Range Interpretation Comments R-time Rapid (test code = R-time 0.8 min 0.4-0.7 Rapid) [place] 367702-02-28 02:07:26 Test Item Value Reference Range Interpretation Comments K-time Rapid (test code = K-time 1.1 min 0.6-2.3 Rapid) [place] [address]-02-28 02:07:26 Test Item Value Reference Range Interpretation Comments Angle Rapid (test code = Angle 76 degrees 64-80 Rapid) [place] 367702-02-28 02:07:26 Test Item Value Reference Range Interpretation Comments Max Amplitude Rapid (test code = Max 71 mm 52-71 Amplitude Rapid) [place] [address]-02-28 02:07:26 Test Item Value Reference Range Interpretation Comments G-value Rapid (test code = G-value 12.1 5.0-11.6 Rapid) [place] [address]-02-28 02:07:26 Test Item Value Reference Range Interpretation Comments Estimated % Lysis Rapid 0.8 See_Comment [Au tomated message] The (test code = Estimated syste m which generated % Lysis Rapid) this result t ransmitted reference range : <=7.5. The reference r caleb was not used to int erpret this result as normal/abnormal . [address]02-28 02:07:26 Test Item Value Reference Range Interpretation Comments PT (test code = PT) 12.5 s 12.0-14.7 [place] [address]-02-28 02:07:26 Test Item Value Reference Range Interpretation Comments INR (test code = INR) 0.94 1 0.85-1.17 [place] [address]-02-28 02:07:26 Test Item Value Reference Range Interpretation Comments PTT (test code = PTT) 29.6 s 22.9-35.8 [place] [address]-02-28 02:07:26 Test Item Value Reference Range Interpretation Comments Segs (test code = Segs) 57.2 45.0-75.0 [place] 367702-02-28 02:07:26 Test Item Value Reference Range Interpretation Comments Lymphocytes (test code = Lymphocytes) 30.9 20.0-40.0 [place] 367702-02-28 02:07:26 Test Item Value Reference Range Interpretation Comments Monocytes (test code = Monocytes) 5.6 2.0-12.0 [place] [address]-02-28 02:07:26 Test Item Value Reference Range Interpretation Comments Eosinophils (test code = 5.6 See_Comment [A utomated message] The Eosinophils) system which ge nerated this result tra nsmitted reference range : <=4.0. The reference r caleb was not used to int erpret this result as normal/abnormal . [place] 367702-02-28 02:07:26 Test Item Value Reference Range Interpretation Comments Basophils (test code = 0.7 See_Comment [Aut omated message] The Basophils) system which ge nerated this result tra nsmitted reference range : <=1.0. The reference r caleb was not used to int erpret this result as normal/abnormal . [facility] HospitalVhtrhspRZRWYPDYJB2322-79-93 02:07:26 Test Item Value Reference Range Interpretation Comments Neutrophils # (test code = Neutrophils 4.3 1.5-8.1 #) [facility] HospitalNlorbjnURSQYQOFVT0983-34-18 02:07:26 Test Item Value Reference Range Interpretation Comments Lymphocytes # (test code = Lymphocytes 2.3 1.0-5.5 #) [facility] HospitalTgbpsfdOCPQFJYRGE0947-57-13 02:07:26 Test Item Value Reference Range Interpretation Comments Monocytes # (test code 0.4 See_Comment [Aut omated message] The = Monocytes #) system which generated this result tra nsmitted reference range : <=0.8. The reference r caleb was not used to int erpret this result as normal/abnormal . [facility] HospitalTwxlfgwXHYZJDSUOK6195-97-96 02:07:26 Test Item Value Reference Range Interpretation Comments Eosinophils # (test code 0.4 See_Comment [A utomated message] The = Eosinophils #) system whic h generated this result tra nsmitted reference range : <=0.5. The reference r caleb was not used to int erpret this result as normal/abnormal . [facility] HospitalSsekwpoEJTYOBEKDQ3638-40-48 02:07:26 Test Item Value Reference Range Interpretation Comments Coronavirus (COVID-19) Not Detected (10/08/21 LIZBETH (test code = 8:07 PM) Coronavirus (COVID-19) LIZBETH) [facility] [id number] 01:55:00 Test Item Value Reference Range Interpretation Comments ABO/Rh (test code = ABO/Rh) O POS Feebbo [id number] 01:55:00 Test Item Value Reference Range Interpretation Comments Antibody Scrn (test Negative (10/08/21 7:55 code = Antibody Scrn) PM) [facility] [id number] 01:55:00 Test Item Value Reference Range Interpretation Comments ABO/Rh (test code = ABO/Rh) O POS [facility] [id number] 01:55:00 Test Item Value Reference Range Interpretation Comments Antibody Scrn (test Negative (10/08/21 7:55 code = Antibody Scrn) PM) [facility]2022-02-22 19:46:00 Test Item Value Reference Range Interpretation Comments Glucose Lvl (test code = Glucose Lvl) 133 70-99 [facility]2022-02-22 19:46:00 Test Item Value Reference Range Interpretation Comments BUN (test code = BUN) 14 03-02 [facility]2022-02-22 19:46:00 Test Item Value Reference Range Interpretation Comments Creatinine Lvl (test code = Creatinine 1.22 0.50-1.40 Lvl) [facility]2022-02-22 19:46:00 Test Item Value Reference Range Interpretation Comments Sodium Lvl (test code = Sodium Lvl) 138 135-145 [facility]2022-02-22 19:46:00 Test Item Value Reference Range Interpretation Comments Potassium Lvl (test code = Potassium 4.1 3.5-5.1 Lvl) [facility]2022-02-22 19:46:00 Test Item Value Reference Range Interpretation Comments Chloride Lvl (test code = Chloride Lvl) 108 95-109 [facility]2022-02-22 19:46:00 Test Item Value Reference Range Interpretation Comments CO2 (test code = CO2) 26 -32 [facility]2022-02-22 19:46:00 Test Item Value Reference Range Interpretation Comments Calcium Lvl (test code = Calcium Lvl) 8.6 8.5-10.5 [place] 942902-02-22 19:46:00 Test Item Value Reference Range Interpretation Comments AGAP (test code = AGAP) 8.1 10.0-20.0 [facility]2022-02-22 19:46:00 Test Item Value Reference Range Interpretation Comments eGFR (test code = eGFR) 73 [facility] HospitalJjazmhwTLQQVFYXBP5615-37-29 19:46:00 Test Item Value Reference Range Interpretation Comments WBC (test code = WBC) 6.2 3.7-10.4 [place] 367702-02-22 19:46:00 Test Item Value Reference Range Interpretation Comments RBC (test code = RBC) 4.91 4.70-6.10 [facility] HospitalCoxxtzdFLCEIYBVYX0073-75-86 19:46:00 Test Item Value Reference Range Interpretation Comments Hgb (test code = Hgb) 13.7 14.0-18.0 [facility] HospitalRuglppcLEXDMJZLIA1793-54-12 19:46:00 Test Item Value Reference Range Interpretation Comments Hct (test code = Hct) 42.1 42.0-54.0 [facility] HospitalLrjwokdRHKORKYPMJ2802-41-60 19:46:00 Test Item Value Reference Range Interpretation Comments MCV (test code = MCV) 85.8 80.0-94.0 [place] 367702-02-22 19:46:00 Test Item Value Reference Range Interpretation Comments MCH (test code = MCH) 27.9 pg 27.0-31.0 [facility] HospitalVrsdmbrVFKCFSTWVO0030-98-87 19:46:00 Test Item Value Reference Range Interpretation Comments MCHC (test code = MCHC) 32.6 32.0-36.0 [facility] HospitalEuxkemzCFYPPNKFQG2394-72-94 19:46:00 Test Item Value Reference Range Interpretation Comments RDW (test code = RDW) 14.3 11.5-14.5 [facility] HospitalCcvudvbSSDUPTSKDU0532-04-36 19:46:00 Test Item Value Reference Range Interpretation Comments Platelet (test code = Platelet) 153 133-450 [facility] HospitalFpejjleBYQOEKECAM3100-40-97 19:46:00 Test Item Value Reference Range Interpretation Comments MPV (test code = MPV) 9.5 7.4-10.4 [facility] HospitalBphkgqnTEXHDRWZRB7717-16-39 19:46:00 Test Item Value Reference Range Interpretation Comments PT (test code = PT) 12.2 s 12.0-14.7 [place] 367702-02-22 19:46:00 Test Item Value Reference Range Interpretation Comments INR (test code = INR) 0.91 1 0.85-1.17 [place] 367702-02-22 19:46:00 Test Item Value Reference Range Interpretation Comments PTT (test code = PTT) 27.1 s 22.9-35.8 [place] 367702-02-22 19:46:00 Test Item Value Reference Range Interpretation Comments Plt Morph (test code = Normal (10/03/21 1:46 Plt Morph) PM) [place] [address]-02-22 19:46:00 Test Item Value Reference Range Interpretation Comments Segs (test code = Segs) 83.7 45.0-75.0 [place] 367702-02-22 19:46:00 Test Item Value Reference Range Interpretation Comments Lymphocytes (test code = Lymphocytes) 12.3 20.0-40.0 [place] [address]-02-22 19:46:00 Test Item Value Reference Range Interpretation Comments Monocytes (test code = Monocytes) 1.6 2.0-12.0 [place] [address]-02-22 19:46:00 Test Item Value Reference Range Interpretation Comments Eosinophils (test code = 2.0 See_Comment [A utomated message] The Eosinophils) system which ge nerated this result tra nsmitted reference range : <=4.0. The reference r caleb was not used to int erpret this result as normal/abnormal . [address]02-22 19:46:00 Test Item Value Reference Range Interpretation Comments Basophils (test code = 0.4 See_Comment [Aut omated message] The Basophils) system which ge nerated this result tra nsmitted reference range : <=1.0. The reference r caleb was not used to int erpret this result as normal/abnormal . [place] 367702-02-22 19:46:00 Test Item Value Reference Range Interpretation Comments Neutrophils # (test code = Neutrophils 5.2 1.5-8.1 #) [place] 367702-02-22 19:46:00 Test Item Value Reference Range Interpretation Comments Lymphocytes # (test code = Lymphocytes 0.8 1.0-5.5 #) [place] 367702-02-22 19:46:00 Test Item Value Reference Range Interpretation Comments Monocytes # (test code 0.1 See_Comment [Aut omated message] The = Monocytes #) system which generated this result tra nsmitted reference range : <=0.8. The reference r caleb was not used to int erpret this result as normal/abnormal . [place] [address]-02-22 19:46:00 Test Item Value Reference Range Interpretation Comments Eosinophils # (test code 0.1 See_Comment [A utomated message] The = Eosinophils #) system whic h generated this result tra nsmitted reference range : <=0.5. The reference r caleb was not used to int erpret this result as normal/abnormal . [facility]2022-02-22 19:46:00 Test Item Value Reference Range Interpretation Comments Glucose Lvl (test code = Glucose Lvl) 133 70-99 [place] 942902-02-22 19:46:00 Test Item Value Reference Range Interpretation Comments BUN (test code = BUN) 14 7-22 [place] 942902-02-22 19:46:00 Test Item Value Reference Range Interpretation Comments Creatinine Lvl (test code = Creatinine 1.22 0.50-1.40 Lvl) [place] 942902-02-22 19:46:00 Test Item Value Reference Range Interpretation Comments Sodium Lvl (test code = Sodium Lvl) 138 135-145 [place] 942902-02-22 19:46:00 Test Item Value Reference Range Interpretation Comments Potassium Lvl (test code = Potassium 4.1 3.5-5.1 Lvl) [facility]2022-02-22 19:46:00 Test Item Value Reference Range Interpretation Comments Chloride Lvl (test code = Chloride Lvl) 108 95-109 [place] 942902-02-22 19:46:00 Test Item Value Reference Range Interpretation Comments CO2 (test code = CO2) 26 24-32 [place] 942902-02-22 19:46:00 Test Item Value Reference Range Interpretation Comments Calcium Lvl (test code = Calcium Lvl) 8.6 8.5-10.5 [facility]2022-02-22 19:46:00 Test Item Value Reference Range Interpretation Comments AGAP (test code = AGAP) 8.1 10.0-20.0 [facility]2022-02-22 19:46:00 Test Item Value Reference Range Interpretation Comments eGFR (test code = eGFR) 73 [facility]AlckcihJOJAVEOKOV7572-95-50 19:46:00 Test Item Value Reference Range Interpretation Comments WBC (test code = WBC) 6.2 3.7-10.4 [place] 367702-02-22 19:46:00 Test Item Value Reference Range Interpretation Comments RBC (test code = RBC) 4.91 4.70-6.10 [place] 367702-02-22 19:46:00 Test Item Value Reference Range Interpretation Comments Hgb (test code = Hgb) 13.7 14.0-18.0 [place] 367702-02-22 19:46:00 Test Item Value Reference Range Interpretation Comments Hct (test code = Hct) 42.1 42.0-54.0 [place] 367702-02-22 19:46:00 Test Item Value Reference Range Interpretation Comments MCV (test code = MCV) 85.8 80.0-94.0 [place] 367702-02-22 19:46:00 Test Item Value Reference Range Interpretation Comments MCH (test code = MCH) 27.9 pg 27.0-31.0 [place] 367702-02-22 19:46:00 Test Item Value Reference Range Interpretation Comments MCHC (test code = MCHC) 32.6 32.0-36.0 [place] 367702-02-22 19:46:00 Test Item Value Reference Range Interpretation Comments RDW (test code = RDW) 14.3 11.5-14.5 [place] 367702-02-22 19:46:00 Test Item Value Reference Range Interpretation Comments Platelet (test code = Platelet) 153 133-450 [facility] HospitalAphktlrZGXRBKGFQG1656-29-64 19:46:00 Test Item Value Reference Range Interpretation Comments MPV (test code = MPV) 9.5 7.4-10.4 [place] 367702-02-22 19:46:00 Test Item Value Reference Range Interpretation Comments PT (test code = PT) 12.2 s 12.0-14.7 [place] 367702-02-22 19:46:00 Test Item Value Reference Range Interpretation Comments INR (test code = INR) 0.91 1 0.85-1.17 [place] 367702-02-22 19:46:00 Test Item Value Reference Range Interpretation Comments PTT (test code = PTT) 27.1 s 22.9-35.8 [place] 367702-02-22 19:46:00 Test Item Value Reference Range Interpretation Comments Plt Morph (test code = Normal (10/03/21 1:46 Plt Morph) PM) [place] 367702-02-22 19:46:00 Test Item Value Reference Range Interpretation Comments Segs (test code = Segs) 83.7 45.0-75.0 [place] 367702-02-22 19:46:00 Test Item Value Reference Range Interpretation Comments Lymphocytes (test code = Lymphocytes) 12.3 20.0-40.0 [place] 367702-02-22 19:46:00 Test Item Value Reference Range Interpretation Comments Monocytes (test code = Monocytes) 1.6 2.0-12.0 [place] 367702-02-22 19:46:00 Test Item Value Reference Range Interpretation Comments Eosinophils (test code = 2.0 See_Comment [A utomated message] The Eosinophils) system which ge nerated this result tra nsmitted reference range : <=4.0. The reference r caleb was not used to int erpret this result as normal/abnormal . [place] 367702-02-22 19:46:00 Test Item Value Reference Range Interpretation Comments Basophils (test code = 0.4 See_Comment [Aut omated message] The Basophils) system which ge nerated this result tra nsmitted reference range : <=1.0. The reference r caleb was not used to int erpret this result as normal/abnormal . [place] 367702-02-22 19:46:00 Test Item Value Reference Range Interpretation Comments Neutrophils # (test code = Neutrophils 5.2 1.5-8.1 #) [place] 367702-02-22 19:46:00 Test Item Value Reference Range Interpretation Comments Lymphocytes # (test code = Lymphocytes 0.8 1.0-5.5 #) [place] 367702-02-22 19:46:00 Test Item Value Reference Range Interpretation Comments Monocytes # (test code 0.1 See_Comment [Aut omated message] The = Monocytes #) system which generated this result tra nsmitted reference range : <=0.8. The reference r caleb was not used to int erpret this result as normal/abnormal . [place] 367702-02-22 19:46:00 Test Item Value Reference Range Interpretation Comments Eosinophils # (test code 0.1 See_Comment [A utomated message] The = Eosinophils #) system whic h generated this result tra nsmitted reference range : <=0.5. The reference r caleb was not used to int erpret this result as normal/abnormal . [facility]2022-02-21 17:31:00 Test Item Value Reference Range Interpretation Comments eGFR (test code = eGFR) 74 [place] 367702-02-21 17:31:00 Test Item Value Reference Range Interpretation Comments PTT (test code = PTT) 28.1 s 22.9-35.8 [place] 367702-02-21 17:31:00 Test Item Value Reference Range Interpretation Comments PT (test code = PT) 11.8 s 12.0-14.7 [place] 367702-02-21 17:31:00 Test Item Value Reference Range Interpretation Comments INR (test code = INR) 0.87 1 0.85-1.17 [place] [address]-02-21 17:31:00 Test Item Value Reference Range Interpretation Comments WBC (test code = WBC) 5.4 3.7-10.4 [place] 367702-02-21 17:31:00 Test Item Value Reference Range Interpretation Comments RBC (test code = RBC) 4.90 4.70-6.10 [place] 367702-02-21 17:31:00 Test Item Value Reference Range Interpretation Comments Hgb (test code = Hgb) 13.7 14.0-18.0 [place] 367702-02-21 17:31:00 Test Item Value Reference Range Interpretation Comments Hct (test code = Hct) 42.0 42.0-54.0 [place] [address]-02-21 17:31:00 Test Item Value Reference Range Interpretation Comments MCV (test code = MCV) 85.6 80.0-94.0 [place] [address]-02-21 17:31:00 Test Item Value Reference Range Interpretation Comments MCH (test code = MCH) 27.9 pg 27.0-31.0 [place] 367702-02-21 17:31:00 Test Item Value Reference Range Interpretation Comments MCHC (test code = MCHC) 32.6 32.0-36.0 [place] 367702-02-21 17:31:00 Test Item Value Reference Range Interpretation Comments RDW (test code = RDW) 14.1 11.5-14.5 [place] [address]-02-21 17:31:00 Test Item Value Reference Range Interpretation Comments Platelet (test code = Platelet) 173 133-450 [place] 367702-02-21 17:31:00 Test Item Value Reference Range Interpretation Comments MPV (test code = MPV) 10.1 7.4-10.4 [place] [address]-02-21 17:31:00 Test Item Value Reference Range Interpretation Comments Segs (test code = Segs) 54.1 45.0-75.0 [place] 367702-02-21 17:31:00 Test Item Value Reference Range Interpretation Comments Lymphocytes (test code = Lymphocytes) 30.9 20.0-40.0 [place] [address]-02-21 17:31:00 Test Item Value Reference Range Interpretation Comments Monocytes (test code = Monocytes) 6.7 2.0-12.0 [place] 367702-02-21 17:31:00 Test Item Value Reference Range Interpretation Comments Eosinophils (test code = 7.7 See_Comment [A utomated message] The Eosinophils) system which ge nerated this result tra nsmitted reference range : <=4.0. The reference r caleb was not used to int erpret this result as normal/abnormal . [place] 367702-02-21 17:31:00 Test Item Value Reference Range Interpretation Comments Basophils (test code = 0.6 See_Comment [Aut omated message] The Basophils) system which ge nerated this result tra nsmitted reference range : <=1.0. The reference r caleb was not used to int erpret this result as normal/abnormal . [place] 367702-02-21 17:31:00 Test Item Value Reference Range Interpretation Comments Neutrophils # (test code = Neutrophils 2.9 1.5-8.1 #) [place] 367702-02-21 17:31:00 Test Item Value Reference Range Interpretation Comments Lymphocytes # (test code = Lymphocytes 1.7 1.0-5.5 #) [place] [address]-02-21 17:31:00 Test Item Value Reference Range Interpretation Comments Monocytes # (test code 0.4 See_Comment [Aut omated message] The = Monocytes #) system which generated this result tra nsmitted reference range : <=0.8. The reference r caleb was not used to int erpret this result as normal/abnormal . [facility]GH[facility]GDRN4100[facility]48-43 17:31:00 Test Item Value Reference Range Interpretation Comments Eosinophils # (test code 0.4 See_Comment [A utomated message] The = Eosinophils #) system whic h generated this result tra nsmitted reference range : <=0.5. The reference r caleb was not used to int erpret this result as normal/abnormal . [facility] HospitalToqphkaQSXQQEZKUY6339-93-49 17:31:00 Test Item Value Reference Range Interpretation Comments Coronavirus (COVID-19) Not Detected (10/02/21 LIZBETH (test code = 11:31 AM) Coronavirus (COVID-19) LIZBETH) [facility] [id number] 17:31:00 Test Item Value Reference Range Interpretation Comments Hgb A1C (test code = Hgb A1C) 5.7 [facility] [id number] 17:31:00 Test Item Value Reference Range Interpretation Comments ABO/Rh (test code = ABO/Rh) O POS [facility] [id number] 17:31:00 Test Item Value Reference Range Interpretation Comments Antibody Scrn (test Negative (10/02/21 code = Antibody Scrn) 11:31 AM) [facility] [id number] 17:31:00 Test Item Value Reference Range Interpretation Comments Glucose Lvl (test code = Glucose Lvl) 92 70-99 [facility]2022-02-21 17:31:00 Test Item Value Reference Range Interpretation Comments BUN (test code = BUN) 17 7-22 [facility]2022-02-21 17:31:00 Test Item Value Reference Range Interpretation Comments Creatinine Lvl (test code = Creatinine 1.21 0.50-1.40 Lvl) [facility]2022-02-21 17:31:00 Test Item Value Reference Range Interpretation Comments Sodium Lvl (test code = Sodium Lvl) 140 135-145 [facility]2022-02-21 17:31:00 Test Item Value Reference Range Interpretation Comments Potassium Lvl (test code = Potassium 4.2 3.5-5.1 Lvl) [place] 942902-02-21 17:31:00 Test Item Value Reference Range Interpretation Comments Chloride Lvl (test code = Chloride Lvl) 108 95-109 [place] 942902-02-21 17:31:00 Test Item Value Reference Range Interpretation Comments CO2 (test code = CO2) 26 24-32 [place] [address]-02-21 17:31:00 Test Item Value Reference Range Interpretation Comments Calcium Lvl (test code = Calcium Lvl) 9.4 8.5-10.5 [place] 942902-02-21 17:31:00 Test Item Value Reference Range Interpretation Comments AGAP (test code = AGAP) 10.2 10.0-20.0 [place] 942902-02-21 17:31:00 Test Item Value Reference Range Interpretation Comments eGFR (test code = eGFR) 74 [place] 367702-02-21 17:31:00 Test Item Value Reference Range Interpretation Comments PTT (test code = PTT) 28.1 s 22.9-35.8 [place] [address]-02-21 17:31:00 Test Item Value Reference Range Interpretation Comments PT (test code = PT) 11.8 s 12.0-14.7 [place] [address]-02-21 17:31:00 Test Item Value Reference Range Interpretation Comments INR (test code = INR) 0.87 1 0.85-1.17 [place] [address]-02-21 17:31:00 Test Item Value Reference Range Interpretation Comments WBC (test code = WBC) 5.4 3.7-10.4 [place] [address]-02-21 17:31:00 Test Item Value Reference Range Interpretation Comments RBC (test code = RBC) 4.90 4.70-6.10 [place] [address]-02-21 17:31:00 Test Item Value Reference Range Interpretation Comments Hgb (test code = Hgb) 13.7 14.0-18.0 [place] [address]-02-21 17:31:00 Test Item Value Reference Range Interpretation Comments Hct (test code = Hct) 42.0 42.0-54.0 [place] [address]-02-21 17:31:00 Test Item Value Reference Range Interpretation Comments MCV (test code = MCV) 85.6 80.0-94.0 [place] 367702-02-21 17:31:00 Test Item Value Reference Range Interpretation Comments MCH (test code = MCH) 27.9 pg 27.0-31.0 [facility] HospitalYaoiaahTZCRHBYFQB9823-30-79 17:31:00 Test Item Value Reference Range Interpretation Comments MCHC (test code = MCHC) 32.6 32.0-36.0 [facility] HospitalGvdxtqtEEKNREKJMT3990-41-32 17:31:00 Test Item Value Reference Range Interpretation Comments RDW (test code = RDW) 14.1 11.5-14.5 [place] 367702-02-21 17:31:00 Test Item Value Reference Range Interpretation Comments Platelet (test code = Platelet) 173 133-450 [facility] HospitalXtsprspWMOGUPYTKR0749-15-24 17:31:00 Test Item Value Reference Range Interpretation Comments MPV (test code = MPV) 10.1 7.4-10.4 [facility] HospitalBsiaqueBMVACCOVFZ4310-40-99 17:31:00 Test Item Value Reference Range Interpretation Comments Segs (test code = Segs) 54.1 45.0-75.0 [facility] HospitalXdsakfzECJDREGVEQ0049-35-59 17:31:00 Test Item Value Reference Range Interpretation Comments Lymphocytes (test code = Lymphocytes) 30.9 20.0-40.0 [facility] HospitalGmnpdzbGREWTECAHN1675-64-04 17:31:00 Test Item Value Reference Range Interpretation Comments Monocytes (test code = Monocytes) 6.7 2.0-12.0 [facility] HospitalDskrgvsMRKLMPMXWG1327-79-63 17:31:00 Test Item Value Reference Range Interpretation Comments Eosinophils (test code = 7.7 See_Comment [A utomated message] The Eosinophils) system which ge nerated this result tra nsmitted reference range : <=4.0. The reference r caleb was not used to int erpret this result as normal/abnormal . [facility] HospitalQxhzcpjSSCUUDUZLL1567-98-04 17:31:00 Test Item Value Reference Range Interpretation Comments Basophils (test code = 0.6 See_Comment [Aut omated message] The Basophils) system which ge nerated this result tra nsmitted reference range : <=1.0. The reference r caleb was not used to int erpret this result as normal/abnormal . [place] 367702-02-21 17:31:00 Test Item Value Reference Range Interpretation Comments Neutrophils # (test code = Neutrophils 2.9 1.5-8.1 #) [facility]GmgusgrYSOTXEMPUL0818-72-56 17:31:00 Test Item Value Reference Range Interpretation Comments Lymphocytes # (test code = Lymphocytes 1.7 1.0-5.5 #) [facility] HospitalYgktwlkEPXIHRKFNS8144-52-95 17:31:00 Test Item Value Reference Range Interpretation Comments Monocytes # (test code 0.4 See_Comment [Aut omated message] The = Monocytes #) system which generated this result tra nsmitted reference range : <=0.8. The reference r caleb was not used to int erpret this result as normal/abnormal . [facility] HospitalHkemhisRPSTMAMGXJ5077-34-10 17:31:00 Test Item Value Reference Range Interpretation Comments Eosinophils # (test code 0.4 See_Comment [A utomated message] The = Eosinophils #) system whic h generated this result tra nsmitted reference range : <=0.5. The reference r caleb was not used to int erpret this result as normal/abnormal . [facility] HospitalOtyvfviEXAOEDHEZL2232-40-13 17:31:00 Test Item Value Reference Range Interpretation Comments Coronavirus (COVID-19) Not Detected (10/02/21 LIZBETH (test code = 11:31 AM) Coronavirus (COVID-19) LIZBETH) [facility] [id number] 17:31:00 Test Item Value Reference Range Interpretation Comments Hgb A1C (test code = Hgb A1C) 5.7 [facility] [id number] 17:31:00 Test Item Value Reference Range Interpretation Comments ABO/Rh (test code = ABO/Rh) O POS [facility] [id number] 17:31:00 Test Item Value Reference Range Interpretation Comments Antibody Scrn (test Negative (10/02/21 code = Antibody Scrn) 11:31 AM) [facility] [id number] 17:31:00 Test Item Value Reference Range Interpretation Comments Glucose Lvl (test code = Glucose Lvl) 92 70-99 [facility]2022-02-21 17:31:00 Test Item Value Reference Range Interpretation Comments BUN (test code = BUN) 17 - [place] 942902-02-21 17:31:00 Test Item Value Reference Range Interpretation Comments Creatinine Lvl (test code = Creatinine 1.21 0.50-1.40 Lvl) [place] 942902-02-21 17:31:00 Test Item Value Reference Range Interpretation Comments Sodium Lvl (test code = Sodium Lvl) 140 135-145 [place] 942902-02-21 17:31:00 Test Item Value Reference Range Interpretation Comments Potassium Lvl (test code = Potassium 4.2 3.5-5.1 Lvl) [place] 942902-02-21 17:31:00 Test Item Value Reference Range Interpretation Comments Chloride Lvl (test code = Chloride Lvl) 108 95-109 [place] 942902-02-21 17:31:00 Test Item Value Reference Range Interpretation Comments CO2 (test code = CO2) 26 24-32 [place] 942902-02-21 17:31:00 Test Item Value Reference Range Interpretation Comments Calcium Lvl (test code = Calcium Lvl) 9.4 8.5-10.5 [place] 942902-02-21 17:31:00 Test Item Value Reference Range Interpretation Comments AGAP (test code = AGAP) 10.2 10.0-20.0 [place] 367701-09-30 07:37:00 Test Item Value Reference Range Interpretation Comments Sed Rate (test code = 2 See_Comment [Auto mated message] The Sed Rate) system which ge nerated this result transmit leydi reference range : <=15. The reference range was not used to interpr et this result as krishna l/abnormal. [place] 153931-09-30 07:37:00 Test Item Value Reference Range Interpretation Comments C-REACTIVE PROTEIN (test code = 8.4 C-REACTIVE PROTEIN) [place] 367701-09-30 07:37:00 Test Item Value Reference Range Interpretation Comments Sed Rate (test code = 2 See_Comment [Auto mated message] The Sed Rate) system which ge nerated this result transmit leydi reference range : <=15. The reference range was not used to interpr et this result as krishna l/abnormal. [place] 153931-09-30 07:37:00 Test Item Value Reference Range Interpretation Comments C-REACTIVE PROTEIN (test code = 8.4 C-REACTIVE PROTEIN) [place] 942901-09-30 01:10:00 Test Item Value Reference Range Interpretation Comments Glucose Lvl (test code = Glucose Lvl) 115 70-99 [place] 942901-09-30 01:10:00 Test Item Value Reference Range Interpretation Comments BUN (test code = BUN) 13 7-22 [place] 942901-09-30 01:10:00 Test Item Value Reference Range Interpretation Comments Creatinine Lvl (test code = Creatinine 1.21 0.50-1.40 Lvl) [place] 942901-09-30 01:10:00 Test Item Value Reference Range Interpretation Comments Sodium Lvl (test code = Sodium Lvl) 141 135-145 [place] 942901-09-30 01:10:00 Test Item Value Reference Range Interpretation Comments Potassium Lvl (test code = Potassium 3.8 3.5-5.1 Lvl) [place] 942901-09-30 01:10:00 Test Item Value Reference Range Interpretation Comments Chloride Lvl (test code = Chloride Lvl) 110 95-109 [place] 942901-09-30 01:10:00 Test Item Value Reference Range Interpretation Comments CO2 (test code = CO2) 25 24-32 [place] 942901-09-30 01:10:00 Test Item Value Reference Range Interpretation Comments Calcium Lvl (test code = Calcium Lvl) 9.1 8.5-10.5 [place] 942901-09-30 01:10:00 Test Item Value Reference Range Interpretation Comments AGAP (test code = AGAP) 9.8 10.0-20.0 [place] 942901-09-30 01:10:00 Test Item Value Reference Range Interpretation Comments eGFR (test code = eGFR) 74 [place] 367701-09-30 01:10:00 Test Item Value Reference Range Interpretation Comments WBC X 10x3 (test code = WBC X 10x3) 5.9 3.7-10.4 [place] 367701-09-30 01:10:00 Test Item Value Reference Range Interpretation Comments RBC X 10x6 (test code = RBC X 10x6) 4.92 4.70-6.10 [place] 367701-09-30 01:10:00 Test Item Value Reference Range Interpretation Comments Hgb (test code = Hgb) 13.8 14.0-18.0 [place] 367701-09-30 01:10:00 Test Item Value Reference Range Interpretation Comments Hct (test code = Hct) 41.8 42.0-54.0 [place] 367701-09-30 01:10:00 Test Item Value Reference Range Interpretation Comments MCV (test code = MCV) 84.9 80.0-94.0 [place] 367701-09-30 01:10:00 Test Item Value Reference Range Interpretation Comments MCH (test code = MCH) 28.0 pg 27.0-31.0 [facility] HospitalKulgzayKGMOEBPZJT5877-29-87 01:10:00 Test Item Value Reference Range Interpretation Comments MCHC (test code = MCHC) 33.0 32.0-36.0 [facility] HospitalBlcumhrKTFIEMRPTV1194-63-63 01:10:00 Test Item Value Reference Range Interpretation Comments RDW (test code = RDW) 14.0 11.5-14.5 [place] 367701-09-30 01:10:00 Test Item Value Reference Range Interpretation Comments Platelet (test code = Platelet) 171 133-450 [facility] HospitalNswkgaeWACKKVQFOR3366-74-45 01:10:00 Test Item Value Reference Range Interpretation Comments MPV (test code = MPV) 8.8 7.4-10.4 [place] 367701-09-30 01:10:00 Test Item Value Reference Range Interpretation Comments Segs (test code = Segs) 42.2 45.0-75.0 [place] 367701-09-30 01:10:00 Test Item Value Reference Range Interpretation Comments Lymphocytes (test code = Lymphocytes) 37.9 20.0-40.0 [place] 367701-09-30 01:10:00 Test Item Value Reference Range Interpretation Comments Monocytes (test code = Monocytes) 7.0 2.0-12.0 [place] 367701-09-30 01:10:00 Test Item Value Reference Range Interpretation Comments Eosinophils (test code = 11.6 See_Comment [A utomated message] The Eosinophils) system which ge nerated this result tra nsmitted reference range : <=4.0. The reference r caleb was not used to int erpret this result as normal/abnormal . [place] 367701-09-30 01:10:00 Test Item Value Reference Range Interpretation Comments Basophils (test code = 1.3 See_Comment [Aut omated message] The Basophils) system which ge nerated this result tra nsmitted reference range : <=1.0. The reference r caleb was not used to int erpret this result as normal/abnormal . [place] 367701-09-30 01:10:00 Test Item Value Reference Range Interpretation Comments Neutrophils # (test code = Neutrophils 2.5 1.5-8.1 #) [place] [id number] 01:10:00 Test Item Value Reference Range Interpretation Comments Lymphocytes # (test code = Lymphocytes 2.2 1.0-5.5 #) [place] 367701-09-30 01:10:00 Test Item Value Reference Range Interpretation Comments Monocytes # (test code 0.4 See_Comment [Aut omated message] The = Monocytes #) system which generated this result tra nsmitted reference range : <=0.8. The reference r caleb was not used to int erpret this result as normal/abnormal . [place] 367701-09-30 01:10:00 Test Item Value Reference Range Interpretation Comments Eosinophils # (test code 0.7 See_Comment [A utomated message] The = Eosinophils #) system whic h generated this result tra nsmitted reference range : <=0.5. The reference r caleb was not used to int erpret this result as normal/abnormal . [place] 367701-09-30 01:10:00 Test Item Value Reference Range Interpretation Comments Basophils # (test code 0.1 See_Comment [Aut omated message] The = Basophils #) system which generated this result tra nsmitted reference range : <=0.2. The reference r caleb was not used to int erpret this result as normal/abnormal . [facility]2021-09-30 01:10:00 Test Item Value Reference Range Interpretation Comments Glucose Lvl (test code = Glucose Lvl) 115 70-99 [place] [id number] 01:10:00 Test Item Value Reference Range Interpretation Comments BUN (test code = BUN) 13 7-22 [place] 942901-09-30 01:10:00 Test Item Value Reference Range Interpretation Comments Creatinine Lvl (test code = Creatinine 1.21 0.50-1.40 Lvl) [place] 942901-09-30 01:10:00 Test Item Value Reference Range Interpretation Comments Sodium Lvl (test code = Sodium Lvl) 141 135-145 [place] 942901-09-30 01:10:00 Test Item Value Reference Range Interpretation Comments Potassium Lvl (test code = Potassium 3.8 3.5-5.1 Lvl) [place] 942901-09-30 01:10:00 Test Item Value Reference Range Interpretation Comments Chloride Lvl (test code = Chloride Lvl) 110 95-109 [place] 942901-09-30 01:10:00 Test Item Value Reference Range Interpretation Comments CO2 (test code = CO2) 25 24-32 [place] 942901-09-30 01:10:00 Test Item Value Reference Range Interpretation Comments Calcium Lvl (test code = Calcium Lvl) 9.1 8.5-10.5 [place] 942901-09-30 01:10:00 Test Item Value Reference Range Interpretation Comments AGAP (test code = AGAP) 9.8 10.0-20.0 [place] 942901-09-30 01:10:00 Test Item Value Reference Range Interpretation Comments eGFR (test code = eGFR) 74 [place] 367701-09-30 01:10:00 Test Item Value Reference Range Interpretation Comments WBC X 10x3 (test code = WBC X 10x3) 5.9 3.7-10.4 [place] 367701-09-30 01:10:00 Test Item Value Reference Range Interpretation Comments RBC X 10x6 (test code = RBC X 10x6) 4.92 4.70-6.10 [place] 367701-09-30 01:10:00 Test Item Value Reference Range Interpretation Comments Hgb (test code = Hgb) 13.8 14.0-18.0 [place] 367701-09-30 01:10:00 Test Item Value Reference Range Interpretation Comments Hct (test code = Hct) 41.8 42.0-54.0 [place] 367701-09-30 01:10:00 Test Item Value Reference Range Interpretation Comments MCV (test code = MCV) 84.9 80.0-94.0 [place] 367701-09-30 01:10:00 Test Item Value Reference Range Interpretation Comments MCH (test code = MCH) 28.0 pg 27.0-31.0 [place] 367701-09-30 01:10:00 Test Item Value Reference Range Interpretation Comments MCHC (test code = MCHC) 33.0 32.0-36.0 [place] 367701-09-30 01:10:00 Test Item Value Reference Range Interpretation Comments RDW (test code = RDW) 14.0 11.5-14.5 [place] 367701-09-30 01:10:00 Test Item Value Reference Range Interpretation Comments Platelet (test code = Platelet) 171 133-450 [facility]OPFL[facility]16[facility] 01:10:00 Test Item Value Reference Range Interpretation Comments MPV (test code = MPV) 8.8 7.4-10.4 [place] 367701-09-30 01:10:00 Test Item Value Reference Range Interpretation Comments Segs (test code = Segs) 42.2 45.0-75.0 [place] 367701-09-30 01:10:00 Test Item Value Reference Range Interpretation Comments Lymphocytes (test code = Lymphocytes) 37.9 20.0-40.0 [place] 367701-09-30 01:10:00 Test Item Value Reference Range Interpretation Comments Monocytes (test code = Monocytes) 7.0 2.0-12.0 [place] 367701-09-30 01:10:00 Test Item Value Reference Range Interpretation Comments Eosinophils (test code = 11.6 See_Comment [A utomated message] The Eosinophils) system which ge nerated this result tra nsmitted reference range : <=4.0. The reference r caleb was not used to int erpret this result as normal/abnormal . [place] 367701-09-30 01:10:00 Test Item Value Reference Range Interpretation Comments Basophils (test code = 1.3 See_Comment [Aut omated message] The Basophils) system which ge nerated this result tra nsmitted reference range : <=1.0. The reference r caleb was not used to int erpret this result as normal/abnormal . [place] 367701-09-30 01:10:00 Test Item Value Reference Range Interpretation Comments Neutrophils # (test code = Neutrophils 2.5 1.5-8.1 #) [id number] 01:10:00 Test Item Value Reference Range Interpretation Comments Lymphocytes # (test code = Lymphocytes 2.2 1.0-5.5 #) [place] 367701-09-30 01:10:00 Test Item Value Reference Range Interpretation Comments Monocytes # (test code 0.4 See_Comment [Aut omated message] The = Monocytes #) system which generated this result tra nsmitted reference range : <=0.8. The reference r caleb was not used to int erpret this result as normal/abnormal . [place] 367701-09-30 01:10:00 Test Item Value Reference Range Interpretation Comments Eosinophils # (test code 0.7 See_Comment [A utomated message] The = Eosinophils #) system whic h generated this result tra nsmitted reference range : <=0.5. The reference r caleb was not used to int erpret this result as normal/abnormal . [id number] 01:10:00 Test Item Value Reference Range Interpretation Comments Basophils # (test code 0.1 See_Comment [Aut omated message] The = Basophils #) system which generated this result tra nsmitted reference range : <=0.2. The reference r caleb was not used to int erpret this result as normal/abnormal . [facility] [id number] 18:20:00 Test Item Value Reference Range Interpretation Comments eGFR (test code = eGFR) 90 [facility] [id number] 18:20:00 Test Item Value Reference Range Interpretation Comments AGAP (test code = AGAP) 4.2 10.0-20.0 [facility] [id number] 18:20:00 Test Item Value Reference Range Interpretation Comments Calcium Lvl (test code = Calcium Lvl) 8.6 8.5-10.5 [facility] [id number] 18:20:00 Test Item Value Reference Range Interpretation Comments CO2 (test code = CO2) 30 24-32 [facility]2018-11-27 18:20:00 Test Item Value Reference Range Interpretation Comments Chloride Lvl (test code = Chloride Lvl) 109 95-109 [facility]2018-11-27 18:20:00 Test Item Value Reference Range Interpretation Comments Potassium Lvl (test code = Potassium 4.2 3.5-5.1 Lvl) [facility]2018-11-27 18:20:00 Test Item Value Reference Range Interpretation Comments Sodium Lvl (test code = Sodium Lvl) 139 135-145 [facility]2018-11-27 18:20:00 Test Item Value Reference Range Interpretation Comments Glucose Lvl (test code = Glucose Lvl) 111 70-99 [facility]2018-11-27 18:20:00 Test Item Value Reference Range Interpretation Comments BUN (test code = BUN) 18 03-02 [facility]2018-11-27 18:20:00 Test Item Value Reference Range Interpretation Comments Creatinine Lvl (test code = Creatinine 1.18 0.50-1.40 Lvl) [facility]2018-11-27 18:20:00 Test Item Value Reference Range Interpretation Comments eGFR (test code = eGFR) 90 [facility]2018-11-27 18:20:00 Test Item Value Reference Range Interpretation Comments AGAP (test code = AGAP) 4.2 10.0-20.0 [facility]2018-11-27 18:20:00 Test Item Value Reference Range Interpretation Comments Calcium Lvl (test code = Calcium Lvl) 8.6 8.5-10.5 [facility]2018-11-27 18:20:00 Test Item Value Reference Range Interpretation Comments CO2 (test code = CO2) 30 -32 [facility]2018-11-27 18:20:00 Test Item Value Reference Range Interpretation Comments Chloride Lvl (test code = Chloride Lvl) 109 95-109 [facility]2018-11-27 18:20:00 Test Item Value Reference Range Interpretation Comments Potassium Lvl (test code = Potassium 4.2 3.5-5.1 Lvl) [facility]2018-11-27 18:20:00 Test Item Value Reference Range Interpretation Comments Sodium Lvl (test code = Sodium Lvl) 139 135-145 [facility] [id number] 18:20:00 Test Item Value Reference Range Interpretation Comments Glucose Lvl (test code = Glucose Lvl) 111 70-99 [facility] [id number] 18:20:00 Test Item Value Reference Range Interpretation Comments BUN (test code = BUN) 18 7-22 [facility] [id number] 18:20:00 Test Item Value Reference Range Interpretation Comments Creatinine Lvl (test code = Creatinine 1.18 0.50-1.40 Lvl) [facility][U] XRAY ELBOW 2 VWS RIGHT [id number] 15:57:00Images acquired, not reported on this accession number.[facility][U] XRAY WRIST MIN 3 VWS RIGHT [id number] 15:57:00Images acquired, not reported on this accession number.[facility] Notes Date/Time Note Provider Source 2022-09-20 EXAM: CT TEMPORAL BONE WITHOUT CONTRAST [place] 13:55:00-00:00 DATE: 09/20/2022 INDICATION: - G96.01 Cranial cerebrospinal fluid leak, spontaneous. COMPARISON: Temporal bone CT 05/11/2021 TECHNIQUE: Volumetric CT of the temporal bones is acquired without contrast. Axial, coronal and sagittal images are provided. IV contrast: None. DLP: Refer to CT protocol form FINDINGS: LEFT: Mastoid air cells are well d eveloped. There is complete opacification of the left mastoid air cells with partial opacification of the left middle ear cavity. External auditory canal is patent and normal jose m iber. The scutum is intact. Ossicu lar chain is normal. Tegmen tympani and mastoideum show areas of osseous thinning/dehiscence. Cochlea, vestibule and semic ircular canals appear normal. The roof of the superior semicircular canal is intact. Normal course and caliber of the internal auditory and facial nerve canals. Vestibular aqueduct is not enlarged. Carotid canal and jugular bulb are unremarkable. RIGHT: Mastoid air cells are well developed and aerated . External auditory canal is patent and normal jose m iber. The middle ear cavity is wel l pneumatized and clear. The scutum is intact. Ossicular chain is normal. Small areas of osseous thinning/dehiscence along the right tegmen mastoideum and tympani. Cochlea, vestibule and semic ircular canals appear normal. The roof of the superior semicircular canal is intact. Normal course and caliber of the internal auditory and facial nerve canals. Vestibular aqueduct is not enlarged. Carotid canal and jugular bulb are unremarkable. IMPRESSION: 1. Redemonstrated complete o pacification of the left mastoid air cells, as was noted on the CT temporal bone exam in 05/11/2021, however interval evacuation of the left mastoid air cells noted on the sa gittal recent CT head 2021. Partial opacification of the left middle ear cavity. No convincing erosive changes in the ossicular chain. 2. Small areas of osseous th inning/dehiscence along bilateral tegmen tympani and mastoideum, similar to prior CT temporal bone. 2022-05-19 EXAM: XR CHEST 1 VIEW [facility] 00:44:00-00:00 DATE: 05/19/2022 0:00 Center INDICATION: - inc O2 requriements COMPARISON: Chest x-ray dated 05/18/2022 TECHNIQUE: AP chest, portable radiograph IMPRESSION: 1. Cardiomediastinal silhouette is normal in siz e and contour. 2. Lung volumes are low comp ared to prior study. No parenchymal consolidation. No pleural effusion. No perceptible pneumothorax. 3. No acute osseous abnormality. 4. Right side [employer] shunt tube superimposing over the right side of the neck and chest. 2022-05-18 EXAM: CTA CHEST WITH CONTRAST [facility] 21:20:00-00:00 DATE: 05/18/2022 20:21 Center INDICATION: diaphoresis, tahcycardia, COMPARISON: None TECHNIQUE: Volumetric CT of the chest is acquired during pulmonary arterial phase following intravenous administration of contrast. Axial, sagittal, coronal, and oblique MIP reconstructions are created at the acquisition workstation. FINDINGS: [employer] Opt[employer] Cable Splicer: Noncontributory. Lines and tubes: [employer] shunt co urses along the anterior right hemithorax soft tissues, extending into the abdomen and below the field of view. Lower neck: Unremarkable. Axilla: Clear. Airway: Clear. Lungs and pleura: Gas along the right lung apex (series 5 images 30 through 41) is felt to be extrapleural subcutaneous emphysema and not pneumothorax. Mediastinum, sho and intrathoracic lymph nodes: Normal. Heart, pericardium and great vessels: Pulmonary emboli: No pulmona ry embolus is identified to the subsegmental level. Pulmonary trunk: Upper limits of normal, measuri ng 3.1 cm Ascending aorta: 3.1 cm, normal Heart: Normal. No right heart strain. RV:LV rati o is Normal Pericardium: No pericardial fluid. Upper abdomen: Unremarkable. Bones: Gas noted within the canal throughout the thoracic spine. Soft tissues: Normal. IMPRESSION: 1. No pulmonary embolus is identified to the sub segmental level. 2. No evidence of pneumonia. 3. Gas throughout the thoracic canal likely from recent epidural blood patch. [place] SECTION: Chest 2022-05-18 EXAM: CT ABDOMEN AND PELVIS WITH CONTRAST [facility] 21:20:00-00:00 DATE: 05/18/2022 20:21 Center INDICATION: - right epigrastric pain, left lower quadrant pain, diaphorees ADDITIONAL INFORMATION: None. COMPARISON: CT abdomen pelvis 10/25/2021 TECHNIQUE: Volumetric CT acq uisition of the abdomen and pelvis after the intravenous administration contrast. Axial, coronal and sagittal reconstructions. IV CONTRAST: 100 mL of Omnipaque 350 ORAL CONTRAST: None RADIATION DOSE: Total DLP: See MAR mGy*cm Estimated effective dose: DLP x 0.015 mSv COMPLICATIONS: None FINDINGS: Lines and tubes: [employer] shunt ca theter extends to the right upper abdomen and enters the peritoneal cavity within the right upper quadrant with tip near the right mid lateral paracolic gutter. No CSF-navneet. Lower thorax: See concurrent chest CT report for more details of thoracic findings. Liver: Too small to characte rize hepatic hypodensity within segment 8 of the liver. No enhancing hepatic lesions. Biliary tree: No intra- or extrahepatic biliary ductal dilation. Gallbladder: No radiopaque g allstones. No wall thickening or pericholecystic fluid. Pancreas: No ductal dilatation. Spleen: No splenomegaly or focal lesions. Splenule. Adrenals: No nodules. Kidneys and ureters: Symmetrical enhancement of the kidneys. 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 No hydronephrosis or definite hydroureter. Bladder: Partially distended. No dense radiopaqu e stones. Reproductive organs: No CT abnormality. Gastrointestinal tract: Stomach: No outlet obstruction. . Small intestines:No obstruction. Colon: No obstruction. Moder ate stool. Scattered colonic diverticulosis without diverticulitis. Scattered colonic diverticulosis without diverticulitis. No fluid collections. Malrotated right kidney with right extrarenal pe lvis. Appendix: Not visualized. No fluid collections. Peritoneum and retroperitoneum: No organized collections. No free air. No CSF-navneet at the tip of the [employer] shunt catheter. Lymph nodes: Reactive peripo rtal lymph node measures 0.9 cm likely reactive. Subcentimeter retroperitoneal and pelvic lymph nodes not enlarged in size. Vasculature: Aorta and branches: Normal caliber. Scattered va scular calcifications. IVC and branches: Normal caliber. Portal system: Patent Bones: Age associated degenerative changes. Sclerotic focus at the T12 vertebral body unchan ged. Soft tissues: Thinning of th e linea alba with tiny fat-containing medical hernia. IMPRESSION: 1. No bowel obstruction. Moderate stool burden. 2. Scattered colonic diverticulosis without dive rticulitis. 3. No intraperitoneal collections. No CSFoma at [employer] shunt tip. 4. Too small to characterize hepatic hypodensity . 5. 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 6. Please see concurrent [facility] CT report for more details of thoracic findings. 2022-05-18 EXAM: CT HEAD WITHOUT CONTRAST [facility] 21:20:00-00:00 DATE: 05/18/2022 20:21 Center INDICATION: 41 years old Male patient with - hea dache. TECHNIQUE: Multiple axial im ages were obtained through the head from vertex to the skull base. Axial bone algorithm reconstruction images are provided. COMPARISON: CT head 05/11/2022 FINDINGS: No acute intracranial hemorr lito is identified. Right frontal approach shunt catheter terminating near the foramen Monro. The ventricles are unchanged in size. The abdi-white matter differ entiation is maintained. No midline shift shift is identified. No pathologic extra axial fluid is identified. The paranasal sinuses are clear. No mastoid effu barbara is identified. IMPRESSION: 1. No CT evidence of acute intracranial abnormal ity. 2022-05-18 EXAM: XR CHEST 1 VIEW [facility] 15:45:01-00:00 DATE: 05/18/2022 15:19 Center INDICATION: - SOB COMPARISON: Chest x-ray dated 10/18/2021 TECHNIQUE: AP chest, portable radiograph IMPRESSION: 1. Cardiomediastinal silhouette is normal in siz e and contour. 2. Lung volumes are low comp ared to prior study. No parenchymal consolidation. No pleural effusion. No perceptible pneumothorax. 3. No acute osseous abnormality. 4. Right chest wall the gus ent superimposing over the right side of the neck and chest. 2022-05-18 EXAM: THERAPEUTIC EPIDURAL BLOOD PATCH WITH FLUO ROSCOPIC GUIDANCE [facility] 12:03:37-00:00 DATE: 05/18/2022 14:36 Center INDICATION: '-blood patch for spinal csf leak'. COMPARISON: Blood patch performed yesterday. TECHNIQUE AND FINDINGS: Consent: Informed written an d verbal consent were obtained from the patient. The benefits, risks, and alternatives to the procedure were explained and all questions were answered. Procedure setup: A sterile p eripheral venous line was placed. The patient was then brought to the fluoroscopy room, placed on the fluoroscopy table, and a time out procedure was performed. The appropria te level was localized using fluoroscopic guidance. The lower back was prepped and draped in the usual sterile fashion. Procedure: Under fluoroscopi c guidance the needle was advanced into the epidural space using loss of resistance technique and confirmed with a small volume of epidural contrast injection. The patient&am p;apos;s own blood was drawn from the venous line using sterile technique and subsequently injected into the epidural space. The needle was removed and a bandage was applied. Procedure details: - Level: L2-L3 interlaminar space - Needle gauge: 20 - Needle length: 6 in - Volume of contrast: 3 mL - Volume of blood: 20 mL - Patient position: Prone Nicholas Acuna MD was present for the pr ocedure. Fluoroscopy time: 4 sec Skin dose: 86.6 mGy IMPRESSION: Successful fluoroscopically guided epidural bloo d patch. 2022-05-17 EXAM: THERAPEUTIC EPIDURAL BLOOD PATCH WITH FLUO ROSCOPIC GUIDANCE [facility] 09:00:00-00:00 DATE: 05/17/2022 16:48 Center INDICATION: 'Other- See Reas on for Consult - blood patch needed for spinal csf leak'. COMPARISON: None TECHNIQUE AND FINDINGS: Consent: Informed written an d verbal consent were obtained from the patient. The benefits, risks, and alternatives to the procedure were explained and all questions were answered. Procedure setup: A sterile p eripheral venous line was placed. The patient was then brought to the fluoroscopy room, placed on the fluoroscopy table, and a time out procedure was performed. The appropria te level was localized using fluoroscopic guidance. The lower back was prepped and draped in the usual sterile fashion. Procedure: Under fluoroscopi c guidance the needle was advanced into the epidural space using loss of resistance technique. Contrast was then injected and seen projecting over the midline on the AP view over the expected epidural s pace. The patient's own blood was drawn from the venous line using sterile technique and subsequently injected, approximately 15 cc. The needle was then removed and upon retrieval only 6 cm fra gment of the needle was obtained. Repeat radiograph demonstrated residual needle fragment overlying the posterior paraspinous soft tissue and the overlying subcutaneous tissu e with its superficial chuckie n closer to the radiographic skin margin. Interventional radiology (Dr. Jenn Chapman, IR faculty and Dr Lamb, IR fellow) was consulted for assistance with retained 9 cm needle fragment removal, who then performed the procedure. Initial attempt to retrieve retained fragment from the initial needle skin entry site was unsuccessful by them given the distance from initial skin e ntry site. Next, 2 small ski n incisions cephalad to the initial skin entry site were made, and the retained needle fragment was retrieved completely under fluoroscopic guidance. Postprocedure imaging de monstrated no radiopaque residual needle fragmen t. The initial skin entry site was closed with single suture. Dermabond was applied to the 2 additional skin incision site cephalad to initial entry site. Procedure details: - Level: L4-L5 interlaminar space - Needle gauge: 20 - Needle length: 6 inches - Volume of contrast: 3 mL - Volume of blood: 15 mL - Patient position: Prone Regulo Miller MD was present for the procedure. Fluoroscopy time: 2 minutes 14 seconds Skin dose: 408.1 mGy IMPRESSION: Fluoroscopically guided epidural blood patch as above. Intraprocedural needle break , with retained needle fragment in posterior paraspinous soft tissue and subcutaneous soft tissue, that was successfully retrieved by interventional radiology service, and confirmed with postprocedural imaging. The findings of procedure we re discussed by Dr. Jamal Stephenson with neurosurgery nurse practitioner customer experience professional pager, and with neurosurgery resident Dr. Morales, following the procedure. Additionally, the f indings of procedure were di scussed by Dr. Regulo Miller with Dr. Morales on 05/17/2022 at 1245 hours. The procedural details were discussed with patient as well as his spouse. Patient reported improvement in headache following the procedure as well as 6 hours following the procedure, with no new complaint. 2022-05-12 EXAM: MRI BRAIN WITHOUT CONTRAST [facility] 05:56:00-00:00 DATE: 05/12/2022 Center INDICATION: - headache. Outs debbie brain magnetic resonance imaging submitted for 2nd opinion. COMPARISON: Head CTs dated from 05/10/2021 to TECHNIQUE: Brain magnetic re sonance imaging performed at [facility] on 05/11/2022. IV contrast: None. FINDINGS: Artifact along the right fro ntoparietal region is observed secondary to extracranial [employer] shunt system. Redemonstrated right frontal approach ventriculostomy catheter with distal tip in the right frontal horn adjacent to the foramen of [place]. The ventricles are decompressed and is slightly smaller compared to CTs from September 2021. The basal brain parenchyma d emonstrates restricted diffusion to suggest acute ischemia. No brain parenchymal signal abnormalities, mass effect, midline shift or downward herniations. The basal cisterns are patent. The intracranial arterial and venous str uctures demonstrate normal flow voids. There is effusion in the lef t mastoid air cells. The paranasal sinuses are clear. IMPRESSION: 1. Decompressed supratentori al ventricular system suggestive of slit ventricles. 2. Unchanged position of a right frontal approac h ventriculostomy catheter. 3. No other intracranial abnormality. 4. Left mastoid air cells effusion. 2021-10-25 Radiation Dose CTDIVOL = 0 (mGy): DLP = 1199.84 (mGy-cm) RHODA Burr 14:16:11-00:00 PROCEDURE INFORMATION: Exam: CT Abdomen And Pelvis With Contrast Exam date and time: 10/25/2021 2:42 PM Age: 41 years old Clinical indication: Generalized abdominal pain; Additional info: /r10.84 generalized abdominal pain TECHNIQUE: Imaging protocol: Computed tomography of the abdomen and pelvis with contrast. Radiation optimization: All CT scans at this facility use at least one of these dose optimization techniques: automated exposure control; mA and/or kV adjustment per patient size (includes targeted e xams where dose is matched to clinical indication); or iterative reconstructio n. Contrast material: OMNI 300; Contrast volume: 10 0 ml; Contrast route: INTRAVENOUS (IV); Other contrast: Oral, omni/water, 900; COMPARISON: OT ABDOMEN/PELVIS W IV CONTRAST CT 10/08/2021 8:0 6 PM RADIATION DOSE METRICS: Total DLP (mGy-cm): 1199.84 FINDINGS: Lungs: Clear lung bases. Liver: Unenhanced liver grossly normal. Gallbladder and bile ducts: Gallbladder and bili brandon system normal. Pancreas: Pancreas normal. Spleen: Spleen normal. Adrenal glands: Adrenals normal. Kidneys and ureters: Incompletely rotated right kidney. No renal mass, calculus, hydronephrosis or perinephric strandin g. Stomach and bowel: No intestinal lesion or mesen teric inflammatory change. Appendix: Appendix not visualized. Intraperitoneal space: No ascites. Vasculature: Unremarkable. Lymph nodes: No adenopathy. Urinary bladder: Urinary bladder empty. Reproductive: Prostate not remarkable. Bones/joints: Minor spondylosis. Soft tissues: Tiny fat containing umbilical tristian ia. Approximate 5.3 x 6.3 cm subcutaneous fluid collection upper right abdome n adjacent to shunt tubing, slightly decreased in size and and more circumsc ribed, likely seroma. Shunt tubing terminates in the anterior upper abdomen. IMPRESSION: 1. Right subcutaneous fluid collection adjacent to the shunt tubing as described, likely seroma. 2. Shunt tubing terminates in the upper anterior abdomen. Kelvin Pate MD On 10/26/2021 18:10:05; KENZIE [id number] 2021-10-18 EXAM: XR ABDOMEN 4 VIEWS RHODA Cedeño 11:56:35-00:00 DATE: 10/18/2021 11:55 BUFFER CHROME INDICATION: - R10.30 Lower abdominal pain, unspe cified ADDITIONAL INFORMATION: None. COMPARISON: CT the abdomen and pelvis of 022 TECHNIQUE: Supine and uprigh t AP views of the abdomen as well as bilateral lateral decubitus views FINDINGS: Lines and tubes: Ventriculop eritoneal shunt catheter is partially visualized coursing into the right upper quadrant and looping upon itself and terminating in the left upper quadrant. Lower thorax: No lung parenc hymal or pleural abnormalities are seen. Cardiac mediastinal silhouette, hilar, and pulmonary vascular structures are normal in appearance. A portion of a right-sided [employer] shunt catheter is visualized Bowel: Nonobstructive bowel gas pattern. No pneu matosis is seen. Free air: None Solid organs: No abnormal ma ss or organomegaly seen. No abnormal intra- abdominal calcifications are seen. Bones: No acute abnormalities. IMPRESSION: 1. Right-sided [employer] shunt cath eter in place looped upon itself in the right upper quadrant and terminating in the left upper quadrant. 2. Bowel gas pattern is nonobstructive. No free air is seen. 2021-10-08 EXAM: CT ABDOMEN AND PELVIS WITH CONTRAST [facility] 20:09:19-00:00 DATE: 10/08/2021 20:06 BUFFER CHROME Center INDICATION: - outside films/[employer] shunt displacemen t ADDITIONAL INFORMATION: None. COMPARISON: None. TECHNIQUE: Volumetric CT of the abdomen and pelvis acquired following the intravenous administration of contrast. Axial, coronal and sagittal images are provided. IV contrast: Refer to MAR/magnetic resonance technologist docume ntation Enteric contrast: None. DLP (mGy-cm): Refer to MAR/magnetic resonance technologist docum entation FINDINGS: Fibre Optic Cable Splicer: Noncontributory. Lines, tubes and hardware: R ight sided [employer] shunt with the distal tip terminating in the subcutaneous soft tissues of the right upper ventral abdomen with associated fluid collection. Lower thorax: Minimal left basilar dependent sub segmental atelectasis.. Liver: Normal. Biliary tree: No intra- or extrahepatic bile judah t dilation. Gallbladder: Normal. Pancreas: Normal. Spleen: Normal. Adrenals: Normal. Kidneys and ureters: Malrota leydi right kidney with mild pelviectasis. No hydronephrosis or nephrolithiasis bilaterally. Facing anteriorly. No hydroureteronephrosis. No obstructive calculi. Bladder: Decompressed or not fully distended. Reproductive organs: Prostate and seminal vesicl es are unremarkable. Gastrointestinal tract: Lower esophagus: Normal. Stomach: Normal. Small bowel: Normal. Colon: Normal. Appendix: Not seen. No inflammation. Peritoneum, mesentery and re troperitoneum: No free air, ascites or loculated fluid. Lymph nodes: Normal. Vasculature: Aorta and branches: Normal. IVC and veins: Normal. Portal and mesenteric vasculature: Normal. Bones: No acute abnormality. Anterior vertebral body osteophyte formation most significantly at T11-T12 vertebral bodies. Soft tissues: Small fat-cont aining umbilical hernia. Fat stranding noted in the region of the distal, malpositioned [employer] shunt in the right lower quadrant abdominal soft tissues with associated fluid miguel ection measuring approximately 8.2 x 5.4 x 3.9 c m (transverse, AP, CC). IMPRESSION: Malpositioned [employer] catheter wi th the distal tip in the right upper quadrant ventral abdominal soft tissues with associated fluid collection. 2021-10-08 Critical finding of new left frontal lobe hypoattenuation along the right frontal shunt catheter possibly textile designs sales representative of an infectious process was communicated to and acknowledged by Trenton Mcfadden at 10/08/2021 21:26 BUFFER CHROME by Armond Sultana MD. [facility] 20:09:12-00:00 EXAM: CT BRAIN WITHOUT CONTRAST Center DATE: 10/08/2021 20:07 BUFFER CHROME INDICATION: - outside films/[employer] shunt displacemen t COMPARISON: CT brain 10/04/2021. TECHNIQUE: Axial CT images o f the brain were obtained. Sagittal and coronal reformats. IV contrast: None. DLP: Refer to CT protocol form FINDINGS: Unchanged positioning of rig ht frontal approach ventricular peritoneal shunt terminating at the third ventricle. There is interval mild vasog enic edema in the parenchyma around the shunt catheter close to the cerebral cortex. This could represent a superadded infection. There is no intracranial bleed. There is no intr acranial mass effect. There is no chronic abnormality. There is no fracture of the skull, skull base, or visible facial bones. Residual foci of subcutaneous air present within the soft tissues overlying the right parietal region is appropriate (series 301 i mage 18, series 303 image 51 ) in setting of recent ventricular peritoneal shunt placement. IMPRESSION: Mild edema is noted in the b rain parenchyma around the right frontal shunt catheter close to the cerebral cortex. This is new compared to the prior noncontrast head CT done on 10/04/2021 and could represent infection. There is no ventriculomegaly. A pre and postcontrast brain MRI is recommended for further evaluation. 2021-10-04 EXAM: CT BRAIN WITHOUT CONTRAST [facility] 08:34:12-00:00 DATE: 10/04/2021 Center INDICATION: ' - evalshunt' ADDITIONAL INFORMATION: None COMPARISON: Head CT 10/03/2021 TECHNIQUE: Noncontrast axial CT images were acquired through the brain. 5 mm axial, sagittal, and coronal images were reviewed. IV contrast: None DLP: Refer to CT protocol form FINDINGS: New right transfrontal shunt catheter. No change in ventricular caliber. Expected droplets of intraventricular and right frontal convexity air. No large intracranial hemorrhage. No new parench ymal density abnormality. The ventricles are unchanged in caliber and conf iguration. IMPRESSION: New right transfrontal shunt catheter. 2021-10-03 Exam: Shunt series. [facility] ical 21:24:18-00:00 DATE: 10/03/2021. Center INDICATION: Evaluate shunt. COMPARISON: CT brain 10/04/2021, 10/03/2021 TECHNIQUE: AP and lateral ra diographs of the skull, chest and abdomen were obtained. FINDINGS: Placement of a rig ht-sided approach ventriculostomy catheter with intracranial limb terminating near the midline. The shunt tubing courses along the superficial soft tissues of the right scalp , neck and anterior chest/ab dominal wall and terminates in the right upper quadrant of the abdomen. No evidence of discontinuity or kinking. Suboptimal image of the calvarium for assessment of the shunt setting. Pneumocephalus and air along the right scalp related to recent shunt placement. IMPRESSION: Right-sided approach ventric uloperitoneal catheter the tip of the abdominal limb in the right upper quadrant. No catheter discontinuity or kinking. 2021-10-03 EXAM: CT BRAIN WITHOUT CONTRAST [facility] 08:36:56-00:00 DATE: 10/03/2021 0840 hours Cente r INDICATION: - preop planning COMPARISON: CT brain without contrast May 10, 2021 TECHNIQUE: Noncontrast axial imaging of the brain was acquired from the vertex to the skull base at 1 mm thickness as per standard Stealth protocol. Coronal and sagittal reformatted images were generated. FINDINGS: Limited evaluation due to streak artifact resulted from stereotactic frame. No evidence of acute intracranial hemorrhage, ma ss effect or midline shift. Calvarium and skull base are intact. Imaged portions of the paranasal sinuses and mastoid air cells are clear. A myringotomy tube is noted in the left tympanic membrane. The previously seen opacification of the left mastoid air cells and middle ear has resolved. IMPRESSION: 1. Stealth protocol for treatment planning. 2. Images are adequate for localization purpose. 3. No evidence of intracranial abnormality. 4. Note is made of a myringo harrison tube in the left tympanic membrane. The previously seen opacification of the left mastoid air cells and middle ear has resolved. 2021-05-11 EXAM: CT TEMPORAL BONE WITH CONTRAST [facility] 02:14:01-00:00 DATE: 05/11/2021 Center INDICATION: - Pt with L ear effusion, draining x1 year, headache, neck stiffness COMPARISON: Head CT 05/10/2021 TECHNIQUE: Axial noncontrast images of the temporal bone, with coronal reformatted images. Short and long axis reformatted images also generated. IV contrast: None. FINDINGS: RIGHT: Mastoid air cells are well developed and Completely opacified. External auditory canal has soft tissue thickeni ng. The middle ear cavity is wel l pneumatized and partially opacified. The scutum is intact. Ossicular chain is normal. Tegmen tympani and mastoideum are intact. Cochlea, vestibule and semic ircular canals appear normal. The roof of the superior semicircular canal is intact. Normal course and caliber of the internal auditory and facial nerve canals. Vestibular aqueduct is not enlarged. Carotid canal and jugular bulb are unremarkable. LEFT: Mastoid air cells are well developed and aerated . External auditory canal is patent and normal jose m iber. The middle ear cavity is wel l pneumatized and clear. The scutum is intact. Ossicular chain is normal. Tegmen tympani and mastoideum are intact. Cochlea, vestibule and semic ircular canals appear normal. The roof of the superior semicircular canal is intact. Normal course and caliber of the internal auditory and facial nerve canals. Vestibular aqueduct is not enlarged. Carotid canal and jugular bulb are unremarkable. IMPRESSION: Near complete opacification of the left mastoid air cells with minimal soft tissue thickening involving the middle ear cavity. No evidence of erosive changes of the mastoid air cell bony septa. No periosteal abscess or venous thrombosis. 2021-05-10 EXAM: CT BRAIN WITHOUT CONTRAST [facility] 22:34:45-00:00 DATE: 05/10/2021 22:24 CDT Center INDICATION: 40-year-old male patient with Daily headache COMPARISON: CT facial bone dated February 12, 2012. TECHNIQUE: Axial CT images o f the brain were obtained. Sagittal and coronal reformats. IV contrast: None. DLP: Refer to CT protocol form FINDINGS: There is no edema, hemorrhag e, mass lesion or other acute intracranial abnormality. There is no chronic abnormality. Benign calcific ation along the falx cerebri. Opacification of the left mastoid air cells. There is no acute fracture o f the skull, skull base, or visible facial bones. Chronic fracture of the right nasal bone, new from prior examination. IMPRESSION: 1. No acute intracranial abnormality. 2. Near complete left mastoid effusion. 3. Chronic fracture of the right nasal bone, new from prior examination.
[2023-02-08] MEDS ORDERED: NA CHLORIDE 0.9% 1,000 ML ONE (20:47)
[2023-02-08] MEDS ORDERED: ONDANSETRON 4 MG (ODT) TAB ONE (20:47)
[2023-02-08] MEDS ORDERED: MAGNES/ALUMIN/SIMET 30ML UCUP ONE (20:47)
[2023-02-08] MEDS ORDERED: CODEINE 30MG/APAP 300MG TAB ONE (20:47)
[2023-02-08] MEDS ORDERED: GUAIFENESIN/CODEINE 5ML UCUP ONE (20:52)
[2023-02-08 21:10] LABS: Absolute Lymphocytes (CBC) 1.7 K/uL (0.7-4.9); Hematocrit 41.2 % (39.6-49.0); MCV 84.8 fL (80-100); MPV 9.1 fL (7.6-11.3); RBC Red Blood Cell Count 4.86 M/uL (4.33-5.43)
--- NOTE | 2023-02-08 21:33 | RAD REPORT ---
EXAM DESCRIPTION: Audie Graf And Rony (2 Views)02/08/2023 9:22 pm CLINICAL HISTORY: Cough COMPARISON: 2021 FINDINGS: The lungs appear clear of acute infiltrate. The heart is normal size AIRPLANE COVERER shunt courses the right hemithorax IMPRESSION: No acute abnormalities displayed
--- NOTE | 2023-02-08 21:36 | RAD REPORT ---
EXAM DESCRIPTION: RAD - Knee Right 3 View - 02/08/2023 9:22 pm CLINICAL HISTORY: Right knee pain status post injury FINDINGS: No fracture or dislocation is seen. If the patient continues to have symptoms to suggest an occult fracture, ligamentous or meniscal inju ry then MRI would be recommended
[2023-02-08 21:38] LABS: Albumin 3.6 g/dL (3.4-5.0); Bilirubin Direct 0.1 mg/dL (0-0.2); Bilirubin Indirect, Calculated 0.3 mg/dL (0.2-0.8); Bilirubin Total 0.4 mg/dL (0.2-1.0)
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
[2023-02-08] MEDS ORDERED: IBUPROFEN 400 MG TAB ONE (23:04)
[2023-02-08 23:41] VITALS: TEMP 98
[2023-02-08 23:43] VITALS: BP 136/73; O2SAT 99
--- NOTE | 2023-02-11 19:34 | EKG ---
Test Date: 2023-02-08 Test Time: 20:41:32 Cq Developer: DIA MEASUREMENT RESULTS: Intervals: Rate: 87 MO: 238 QRSD: 80 QT: 342 QTc: 411 [place]: P: 67 MO: 238 QRS: -10 T: 100 INTERPRETIVE STATEMENTS: Sinus rhythm with 1st degree AV block T wave abnormality, consider lateral ischemia Abnormal ECG Compared to ECG 03/26/2022 13:12:16 First degree AV block now present T-wave abnormality now present Possible ischemia now present Sinus arrhythmia no longer present Ventricular premature complex(es) no longer present Left ventricular hypertrophy no longer present Myocardial infarct finding no longer present Electronically Signed On 02-11-23 19:29:38 CDT by Agus Fisher
== END 2023-02-08 23:02 | disposition home or self-care (01) ==
LOC: ER 20:01
DX: J68.0 Bronchitis and pneumonitis due to chemicals, gases, fumes and vapors (principal); S70.12XA Contusion of left thigh, initial encounter; S80.01XA Contusion of right knee, initial encounter; S83.91XA Sprain of unspecified site of right knee, initial encounter; K02.9 Dental caries, unspecified; K04.01 Reversible pulpitis; I10 Essential (primary) hypertension
CPT/HCPCS: 96361; 85025; 80048; 36415; 82550; 80076; 83880; 71046; 73562; 96360; 99285; Q0162; J7030; 93005

== ENCOUNTER 2023-03-08 14:31 | Emergency (ER) | payer OTHER ==
--- OUTSIDE RECORDS SUMMARY | 2023-03-08 14:48 | XMS REPORT | Continuity of Care Document ---
:1980 Author Organization [facility] t Address [address] [facility] [address] [place] [address] Care Team Providers Name Role Phone Geovanna Foley DO Primary Care Physician John Vazquez Attending Clinician Unavailable GERONIMO MICHELLE Attending Clinician Unavailable NOAH OSORIO Attending Clinician Unavailable JUNIOR KUMAR Attending Clinician Unavailable NANETTE HONEYCUTT Attending Clinician Unavailable MANASA CULLEN Attending Clinician Unavailable MANASA CULLEN Attending Clinician Unavailable CRIS JAIMES Attending Clinician Unavailable Kelly LOJA, Karen Trent Attending Clinician Darshan LOJA, Julian Attending Clinician César LOJA, Aidan Attending Clinician Cecil LOJA, Jimmy Amato Attending Clinician [phone] ANU ORTIZ Attending Clinician Unavailable NOAH OSORIO Attending Clinician Unavailable SONIA ROBERTS Attending Clinician Unavailable Marcella CLEMENTE, Rae Attending Clinician Unavailable Gonzalo OTT, Layne Attending Clinician Unavailable Miguel Angel LOJA, Geronimo Attending Clinician Dorothea Delgadillo MA Attending Clinician Unavailable Amelia Cameron MA Attending Clinician Unavailable Brii Howard MA Attending Clinician Unavailable Doctor Unassigned, Kinde Attending Clinician Unavailable 1, Gal [employer] [...] Unavailable GEOVANNA FOLEY D.O. Attending Clinician Unavailable MANASA CULLEN Admitting Clinician Unavailable JULIAN SEXTON Admitting Clinician Unavailable NOAH OSORIO Admitting Clinician Unavailable Blaire PADRON Admitting Clinician Unavailable Payers Payer Name Policy Policy Number Effective Expiration Source Type Date Date [facility] MEDICAID STAR [id number] 2019 00:00:00 [facility] [id number] 2018 Common S pirit CHOICE 00:00:00 [facility] [id number] 2018 Common S pirit CHOICE 00:00:00 [facility] [id number] 2018 Common S pirit CHOICE 00:00:00 - [facility] [id number] 2018 Common S pirit CHOICE 00:00:[address] - [facility] [id number] 2019 Universi ty of CHOICE - MANA[facility] [id number]-PresentP[address], [place] [address]Medicaid [facility] [id number] 2018 Common S pirit CHOICE 00:00:00 - [facility] [id number] 2018 Common S pirit CHOICE 00:00:00 - [facility] [id number] 2018 Common S pirit CHOICE 00:00:00 - [facility] Problems Condition Condition Condition Status Onset Resolution Last Treating Co mments Source Name Details Category Date Date Treatment Clinician Date CRANIAL CRANIAL Diagnosis Active 2023-02-04 Memoria CEREBROSPI CEREBROSPI 02-01 13:10:00 l NAL FLUID NAL FLUID 00:00: Herm faina LEAK, LEAK, 00 SPONTA SPONTA Active 02/01/2023 [facility] Intractabl Intractabl Disease Active M ethodi e vomiting e vomiting 01-06 st with with 00:00: Hospita nausea nausea 00 l Hematemesi Hematemesi Disease Active M ethodi s with s with 5- st nausea nausea 00:00: Hospita 00 l Hypertensi Hypertensi Disease Active M ethodi ve urgency ve urgency 01-06 st 00:00: Hospita 00 l Acute Acute Disease Active Methodi intractabl intractabl 5-28 st e headache e headache 00:00: Ho spita 00 l BMI BMI Disease Active 2021-08 UT 40.0-44.9, 40.0-44.9, 0-07 He alth adult adult 00:00: 00 SPINAL SPINAL Diagnosis Active 2021-082022-05-18 Me moria HEADACHE HEADACHE 0-05 08:44:00 l Active 12:00: [place] 05/16/2022 00 [facility] SENY BY SENY BY Diagnosis Active 2021-082022-05-16 Memoria PHYISICIAN PHYISICIAN 0-05 19:45:00 l Active 12:00: [place] 05/16/2022 00 [facility] L L Diagnosis Active 2021-082022-05-12 Mem oria MASTOIDITI MASTOIDITI 0- 05:56:00 l S S Active 00:00: [place] 05/12/2022 00 [facility] UNSPECIFIE UNSPECIFI Diagnosis Active 2021-10-26 Memoria D ED 3-15 18:20:00 l ABDOMINAL ABDOMINAL 00:00: Herm faina PAIN PAIN 00 Active 10/24/2021 [facility] DISPLACED DISPLACED Diagnosis Active 2021-10-08 Memoria 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 10-08 19:39:00 l Active 00:00: [place] 10/08/2021 00 [facility] 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 Diagnosis Active 2021-10-26 Memoria MALF MALF 10-08 18:20:00 l Active 00:00: [place] 10/08/2021 00 [facility] G96.00 G96.00 Diagnosis Active 2021-10-26 Me moria Active 09-28 18:20:00 l 09/28/2021 00:00: Sadi gresham [address] MD LOJA Diagnosis Active 2021-05-10 Mem oria REFERRAL/ REFERRAL/ 05-10 20:33:00 l FLUIDS FLUIDS 00:00: [place] LEAKING LEAKING 00 FROM EAR FROM EAR Active 05/10/2021 [facility] CSF CSF Disease Active [place] otorrhea otorrhea 05-09 Health 00:00: 00 Syncope Syncope Disease Active 2017-08 Methodi 0-14 [facility] 00:00: Hospita 00 l No known No known Disease Unive rs active active ity of problems problems [facility] Lesion of Lesion of Problem 2019-01-26 Memoria ulnar ulnar 15:19:24 l nerve, nerve, [place] right right upper limb upper limb 01/26/2019 [place] Unspecifie Unspecifi Problem 2019-01-26 Memoria d ed 15:19:24 l osteoarthr osteoarthr He rmann itis, itis, unspecifie unspecifie d site d site 01/26/2019 [place] Sleep Sleep Problem 2019-01-26 Memor ia apnea, apnea, 15:19:24 l unspecifie unspecifie He rmann d d 01/26/2019 [place] Unspecifie Unspecifi Problem 2019-01-26 Memoria d asthma, ed asthma, 15:19:24 l uncomplica uncomplica He jose alfredo leydi leydi 01/26/2019 [place] Anxiety Anxiety Problem 2019-01-26 Me moria disorder, disorder, 15:19:24 l unspecifie unspecifie He rmann d d 01/26/2019 [place] Gastro-eso Gastro-es Problem 2019-01-26 Memoria phageal ophageal 15:19:24 l reflux reflux [place] disease disease without without esophagiti esophagiti s s 01/26/2019 [place] Essential Problem 2019-01-26 [place] moria (primary) Essential 15:19:24 l hypertensi (primary) Her jones on hypertensi on 01/26/2019 [place] Personal Personal Problem 2019-01-26 Memoria history of history of 15:19:24 l nicotine nicotine Sadi n dependence dependence 9 [place] Allergy Allergy Problem 2019-01-26 [place] moria status to status to 15:19:24 l analgesic analgesic Herm faina agent agent status status 01/26/2019 [place] 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 Problem 2019-01-26 Memoria (current) (current) 15:19:24 l use of use of Advidson non-steroi non-steroi siddharth siddharth anti-infla anti-infla mmatories mmatories (NSAID) (NSAID) 01/26/2019 [place] Dependence Dependenc Problem 2019-01-26 Memoria on other e on other 15:19:24 l enabling enabling Sadi n machines machines and and devices devices 01/26/2019 [place] Arthrodesi Arthrodes Problem 2019-01-26 Memoria s status is status 15:19:24 l 01/26/2019 Sadi n [place] Cerebrospi Cerebrosp Problem Active 2022-09-23 Memoria nal fluid inal fluid 07:26:44 l leak leak [place] (disorder) (disorder) Active Problem 09/23/2022 [facility], RHODA Cedeño, RHODA Burr,M [facility] Chest pain Chest Problem Active 2022-09-23 M emoria (finding) pain 07:26:44 l (finding) [place] Active Problem 09/23/2022 [facility], RHODA Cedeño, RHODA Burr,M [facility] Morbid Morbid Problem Active 2022-09-23 David katarzyna obesity obesity 07:26:44 l (disorder) (disorder) He rmann Active Problem 09/23/2022 [facility], RHODA Cedeño, RHODA Burr,[facility] Rhabdomyol Rhabdomyo Problem Active 2022-09-23 Memoria ysis lysis 07:26:44 l (disorder) (disorder) He rmann Active Problem 09/23/2022 [facility], RHODA Cedeño, RHODA Burr,[facility] Smoker Smoker Problem Active 2022-09-23 David katarzyna (finding) (finding) 07:26:44 l Active [place] Problem 09/23/2022 [facility], RHODA Cedeño, RHODA Burr,[facility] MECH COMPL MECH Diagnosis Active 2021-10-26 Memoria OF COMPL OF 18:20:00 l VENTRICULA VENTRICULA He faina R R INTRACRANI INTRACRANI AL S AL S Active [facility] R10.30 - R10.30 - Diagnosis Active 2021-10-26 Memoria LOWER LOWER 18:20:00 l ABDOMINAL ABDOMINAL Herm faina PAIN, PAIN, UNSPECIF UNSPECIF Active RHODA Cedeño R10.84 - R10.84 - Diagnosis Active 2022-01-10 Memoria GENERALIZE GENERALIZE 14:35:00 l D D [place] ABDOMINAL ABDOMINAL PAIN PAIN Active RHODA Burr Headache Headache Problem Active 2022-09-23 Memoria (finding) (finding) 07:26:44 l Active [place] Problem 09/23/2022 [facility] 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 (finding) (finding) Active Problem 09/23/2022 [facility] OTHER OTHER Diagnosis Active 2022-05-18 Mem oria REACTION REACTION 08:44:00 l TO SPINAL TO SPINAL Herm faina AND LUMBAR AND LUMBAR PUNC PUNC Active [facility] G96.01 - G96.01 - Diagnosis Active 2022-09-20 Memoria CRANIAL CRANIAL 13:51:00 l CEREBROSPI CEREBROSPI He rmann NAL FLUID NAL FLUID LE LE Active OPID [place] Cubital Cubital Problem Active [facility] tunnel tunnel [...] Active [facility] vomiting vomiting Physic i ans [id number] Non-season Problem Com mon al Spirit allergic - [facility] rhinitis, St unspecifie [facility] [id number] Mild Problem Common intermitte Spirit nt asthma - [facility] with allergic [facility] rhinitis, Medical unspecifie Center d whether complicate d [id number] Depression Problem Co mmon with Spirit anxiety - [facility] [id number] Migraine Problem Comm on without Spirit aura and - [facility] without [facility] status [facility]rainos[facility], not Center intractabl e [id number] Attention Problem Comm on deficit Spirit hyperactiv - [facility] ity [facility] disorder [facility] ([facility] Medical combined Center type [id number] Primary Problem Comm on osteoarthr Spirit itis of - [facility] right knee [facility] [id number] Pain in Problem Common right knee [facility] [id number] Left Problem Common maxillary Spirit sinusitis - [facility] [id number] Hypertensi Problem Com mon on, Spirit unspecifie - [facility]I d type [facility] [id number] GERD Problem Common without Spirit esophagiti - [facility] s [facility] [id number] Tobacco Problem Commo n use Spirit disorder - [facility] [id number] Other Problem Common chronic Spirit pain - [facility] [id number] Mixed Problem Common hyperlipid Spirit emia - [facility] [id number] Decreased Problem Com mon hearing of Spirit left ear - [facility] [id number] Loss of Problem Common taste [facility] Sprain of Sprain of Problem Resolve 2022-05-21 2022-05-21 Memoria ligament ligament d 12-22 21:55:10 21:55:10 l of finger of finger 00:00: Anya eisenberg (disorder) (disorder) 00 Resolved 12/23/2011 Problem 05/21/2022 [facility], RHODA Cedeño, RHODA Burr,[facility] [place] History of Past Illness Condition Condition Condition Status Onset Resolution Last Treating Co mments Source Name Details Category Date Date Treatment Clinician Date Headache, Headache, Problem 2021-082022-05-14 2022-05-14 Memoria unspecifie unspecifie 0-02 23:16:23 23:16:23 l d d 02:01: [place] 05/13/2022 00 05/14/2022 [facility] Presence Presence Problem 2021-082022-05-14 2022-05-14 Memoria of of 0-02 23:16:23 23:16:23 l cerebrospi cerebrospi 02:01: Harpreet simons fluid nal fluid 00 drainage drainage device device 05/13/2022 05/14/2022 [facility] Carpal Carpal Problem 2017-2019-01-26 2019-01-26 Memoria tunnel tunnel 2- 15:19:24 15:19:24 l syndrome, syndrome, 04:59: Anya eisenberg right right 41 upper limb upper limb 07/17/2018 01/26/2019 [facility] [place] Obstructiv Obstructi Problem 2017-082019-01-11 2019-01-11 Mike bhakta sleep ve sleep - 11:08:48 11:08:48 l apnea apnea 05:23: [place] (adult) (adult) 17 (pediatric (pediatric ) ) 06/28/2018 01/11/2019 [facility] [place] Unspecifie Unspecifi Problem 2017-082018-12-03 2018-12-03 Mike d ed 0-11 14:53:30 14:53:30 l mononeurop mononeurop 04:28: He jose alfredo athy of athy of 42 right right upper limb upper limb 05/22/2018 9 [facility] [place] Pain in Pain in Problem 2017-082018-12-03 2018-12-03 Mike arm, arm, 0-05 14:53:30 14:53:30 l unspecifie unspecifie 05:00: He jose alfredo gage d 00 05/16/2018 9 [facility] [place] Allergies, Adverse Reactions, Alerts Allergy Allergy Status Severity Reaction(s) Onset Inactive Treating Comm ents Source Name Type Date Date Clinician NO KNOWN Allergy Active [facility] NO KNOWN Drug Active Univers ALLERGIE Class ity of S [facility] Acetamin drug Active Headache [facility] ophen allergy Physici TABS ans No Known No Known Active Memori a Medicati Medicati l on on [place] Aquino s s Family History Family Member Diagnosis Comments Start Date Stop Date Source Other Diabetes [facility] natural son Family history of [place] [...] Start Date Stop Date Quantity Comments Source Gender identity [facility] Sexual orientation [facility] Alcohol Frequency History [facility] B[facility] History of Social 2023-01-07 2023-01-[address] function 00:00:00 00:00:00 Hospital Tobacco use and 2023-01-06 2023-01-06 Smokeless tobacco Me thodist exposure 00:00:00 00:00:00 non-user Hospital Alcohol intake 2023-01-06 2023-01-06 Current non-drinker M ethodist 00:00:00 00:00:00 of alcohol Hospital (finding) Tobacco Comment 2022-11-14 2022-11-14 Pt quit few years [facility] Exposure to 2022-09-18 2022-09-28 Not sure [facility] SARS-CoV-2 (event) 00:00:00 14:46:00 Alcohol Comment 2021-10-18 2021-10-18 [facility] 00:[facility] 00:00:00 Social History 2018-07-08 2018-07-08 [facility] 18:40:37 18:40:37 History of tobacco 2018-04-25 Cigarette Smoker [facility] 00[facility] Sex [facility]igned At [birth year] [facility] Smoking Status Start Date Stop Date Source Unknown if ever smoked [facility] Current Smoker 2022-06-22 00:00:00 Common Spiri t - [facility] Tobacco smoking status 2022-05-17 04:42:15 2022-05-17 04:42:15 M michaela Cedeño Medications Ordered Filled Start Stop Current Ordering Indication Dosage Frequency Signature Comments Components Source Medication Medication Date Date Medication? Clinician (SIG) Name Name lisinopriL Yes 40mg QD Take 1 Metho di (PRINIVIL) 5-30 tablet (40 st 40 mg 18:25: mg total) Hospita tablet 02 by mouth [place] [id number] 50mg Q24H Take 1 Method i (ULTRAM) 50 5-30 tablet (50 st mg tablet 18:25: mg total) Hos yumiko 02 by mouth l daily as needed for moderate pain .acute pain. omeprazole Yes 40mg QD Take 1 Metho di (PriLOSEC) 5-[address] 40 MG 18:25: (40 mg Hospita capsule 02 total) by l mouth daily. dicyclomine 2023-0 Yes 20mg QD Take 1 Meth aubree (BENTYL) 20 5-30 tablet (20 st mg tablet 18:25: mg total) Hos yumiko 02 by mouth l daily. ondansetron 2023-0 Yes 4mg Q8H Take 1 Meth a[place]ree ODT 5-30 tablet (4 st (ZOFRAN-ODT 18:25: mg total) H ospita ) 4 MG 02 by mouth l disintegrat every 8 ing tablet (eight) hours as needed for nausea or vomiting. lisinopriL 2023-0 Yes 40mg QD Take 1 Metho di (PRINIVIL) 5-30 tablet (40 st 40 mg 18:25: mg total) Hospita tablet 02 by mouth l daily. traMADoL 2023-0 Yes [id number] 50mg Q24H Take 1 Method i (ULTRAM) 50 5-30 tablet (50 st mg tablet 18:25: mg total) Hos yumiko 02 by mouth l daily as needed for moderate pain .acute pain. omeprazole 2023-0 Yes 40mg QD Take 1 Metho di (PriLOSEC) 5-[address] 40 MG 18:25: (40 mg Hospita capsule 02 total) by l mouth daily. dicyclomine 2023-0 Yes 20mg QD Take 1 Meth a[place]ree (BENTYL) 20 5-30 tablet (20 st mg tablet 18:25: mg total) Hos yumiko 02 by mouth l daily. ondansetron 2023-0 Yes 4mg Q8H Take 1 Meth [place] ODT 5-30 tablet (4 st (ZOFRAN-ODT 18:25: mg total) H ospita ) 4 MG 02 by mouth l disintegrat every 8 ing tablet (eight) hours as needed for nausea or vomiting. lisinopriL 2023-0 Yes 40mg QD Take 1 Metho di (PRINIVIL) 5-30 tablet (40 st 40 mg 18:25: mg total) Hospita tablet 02 by mouth l daily. traMADoL 2023-0 Yes [id number] 50mg Q24H Take 1 Method i (ULTRAM) 50 5-30 tablet (50 st mg tablet 18:25: mg total) Hos yumiko 02 by mouth l daily as needed for moderate pain .acute pain. omeprazole 2023-0 Yes 40mg QD Take 1 Metho di (PriLOSEC) 5-[address] 40 MG 18:25: (40 mg Hospita capsule 02 total) by l mouth daily. dicyclomine 2023-0 Yes 20mg QD Take 1 Meth [place]ree (BENTYL) 20 5-30 tablet (20 st mg tablet 18:25: mg total) Hos yumiko 02 by mouth l daily. ondansetron 2023-0 Yes 4mg Q8H Take 1 Meth [place]ree ODT 5-30 tablet (4 st (ZOFRAN-ODT 18:25: mg total) H ospita ) 4 MG 02 by mouth l disintegrat every 8 ing tablet (eight) hours as needed for nausea or vomiting. lisinopriL 2023-0 Yes 40mg QD Take 1 Metho di (PRINIVIL) 5-30 tablet (40 st 40 mg 18:25: mg total) Hospita tablet 02 by mouth l daily. traMADoL 2023-0 Yes [id number] 50mg Q24H Take 1 Method i (ULTRAM) 50 5-30 tablet (50 st mg tablet 18:25: mg total) Hos yumiko 02 by mouth l daily as needed for moderate pain .acute pain. omeprazole 2023-0 Yes 40mg QD Take 1 Metho di (PriLOSEC) 5-[address] 40 MG 18:25: (40 mg Hospita capsule 02 total) by l mouth daily. dicyclomine 2023-0 Yes 20mg QD Take 1 Meth a[place]ree (BENTYL) 20 5-30 tablet (20 st mg tablet 18:25: mg total) Hos yumiko 02 by mouth l daily. ondansetron 2023-0 Yes 4mg Q8H Take 1 Meth [place] ODT 5-30 tablet (4 st (ZOFRAN-ODT 18:25: mg total) H ospita ) 4 MG 02 by mouth l disintegrat every 8 ing tablet (eight) hours as needed for nausea or vomiting. amLODIPine 2023-0 2023- No 5mg QD Take 1 Meth a[place]ree (NORVASC) 5 5-30 06-30 tablet (5 st mg tablet 00:00: 04:59 mg total) Ho spita 00 :00 by mouth l daily for 30 days. amLODIPine 2023-0 2023- No 5mg QD Take 1 Meth a[place]ree (NORVASC) 5 -30 -30 tablet (5 st mg tablet 00:00: 04:59 mg total) Ho spita 00 :00 by mouth l daily for 30 days. amLODIPine 2023-0 2023- No 5mg QD Take 1 Meth [place]ree (NORVASC) 5 5-30 -30 tablet (5 st mg tablet 00:00: 04:59 mg total) Ho spita 00 :00 by mouth l daily for 30 days. amLODIPine 2023-0 2023- No 5mg QD Take 1 Meth a[place]ree (NORVASC) 5 -30 -30 tablet (5 st mg tablet 00:00: 04:59 mg total) Ho spita 00 :00 by mouth l daily for 30 days. ciprofloxac 2023-0 2023- No 500mg Q.5D Take 1 Me thodi in (Cipro) 01-[address] 500 MG 00:00: 04:59 (500 mg Hospita tablet 00 :00 total) by l mouth 2 (two) times a day for 5 days. metroNIDAZO 2023-0 2023- No 500mg Q.[id number] Take 1 Methodi LE (FlagyL) 01-07- [id number] tablet st 500 MG 00:00: 04:59 3D (500 mg Hospita tablet 00 :00 total) by l mouth 3 (three) times a day for 5 days. ciprofloxac 3-0 2023- No 500mg Q.5D Take 1 Me thodi in (Cipro) 01-[address] 500 MG 00:00: 04:59 (500 mg Hospita tablet 00 :00 total) by l mouth 2 (two) times a day for 5 days. metroNIDAZO 2023-0 2023- No 500mg Q.[id number] Take 1 Methodi LE (FlagyL) 01-07- [id number] tablet st 500 MG 00:00: 04:59 3D (500 mg Hospita tablet 00 :00 total) by l mouth 3 (three) times a day for 5 days. ciprofloxac 2023-0 2023- No 500mg Q.5D Take 1 Me thodi in (Cipro) 01-[address] 500 MG 00:00: 04:59 (500 mg Hospita tablet 00 :00 total) by l mouth 2 (two) times a day for 5 days. metroNIDAZO 3-0 3- No 500mg Q.[id number] Take 1 Methodi LE (FlagyL) 01-[id number] 500 MG 00:00: 04:59 3D (500 mg Hospita tablet 00 :00 total) by l mouth 3 (three) times a day for 5 days. ciprofloxac 2022-0 2022- No 500mg Q.5D Take 1 Me thodi in (Cipro) 01-[address] 500 MG 00:00: :59 (500 mg Hospita tablet 00 :00 total) by l mouth 2 (two) times a day for 5 days. metroNIDAZO 2022-0 2022- No 500mg Q.[id number] Take 1 Methodi LE (FlagyL) 01-[id number] 500 MG 00:00: :59 3D (500 mg Hospita tablet 00 :00 total) by l mouth 3 (three) times a day for 5 days. butalbital- 2022-2022- No 1{tbl} Q6H Take 1 M ethodi acetaminoph 01-07- tablet by st en-caff 00:00: 04:59 mouth Hospita (FIORICET) 00 :00 every 6 l 50-325-40 (six) mg per hours as tablet needed for headaches for up to 2 days. butalbital- 2022-0 2022- No 1{tbl} Q6H Take 1 M ethodi acetaminoph 01-07- tablet by st en-caff 00:00: 04:59 mouth Hospita (FIORICET) 00 :00 every 6 l 50-325-40 (six) mg per hours as tablet needed for headaches for up to 2 days. butalbital- 2022-0 2022- No 1{tbl} Q6H Take 1 M ethodi acetaminoph 01-07- tablet by st en-caff 00:00: 04:59 mouth Hospita (FIORICET) 00 :00 every 6 l 50-325-40 (six) mg per hours as tablet needed for headaches for up to 2 days. butalbital- 2022- No 1{tbl} Q6H Take 1 M ethodi acetaminoph 01-[address] en-caff 00:00: 04:59 mouth Hospita (FIORICET) 00 :00 every 6 l 50-325-40 (six) mg per hours as tablet needed for headaches for up to 2 days. ondansetron 0 Yes [address] (Zofran) 8 4-06 as needed Luke s MG tablet 16:50: [address] ondansetron Yes [address] (Zofran) 8 4-06 as needed Luke s MG tablet 16:50: [address] ondansetron Yes [address] (Zofran) 8 4-06 as needed Luke s MG tablet 16:50: [address] ondansetron Yes [address] (Zofran) 8 4-06 as needed Luke s MG tablet 16:50: [address] ondansetron Yes [address] (Zofran) 8 4-06 as needed Luke s MG tablet 16:50: [address] ondansetron Yes [address] (Zofran) 8 4-06 as needed Luke s MG tablet 16:50: [address] traMADol 0 2022- No [id number] 50mg Q6H Take 1 UT (Ultram) 50 [id number] tablet (50 H ealth MG tablet 00:00: 05:59 mg total) 00 :00 by mouth every 6 (six) hours if needed for severe pain for up to 5 days. omeprazole 0 Yes [address] (PriLOSEC) 2-16 30 minutes Ariel es 40 MG 00:00: before Medical capsule 00 morning Center meal losartan 2022-0 Yes 100mg QD Take [address] (COZAAR) 2-16 tablet [facility] 100 MG 00:00: (100 mg Medical tablet 00 total) by Center mouth in the morning. omeprazole 0 Yes [address] (PriLOSEC) 2-16 30 minutes Ariel es 40 MG 00:00: before Medical capsule 00 morning Center meal losartan 2022-0 Yes 100mg QD Take [address] (COZAAR) 2-16 tablet [facility] 100 MG 00:00: (100 mg Medical tablet 00 total) by Center mouth in the morning. omeprazole 2022-0 Yes [address] (PriLOSEC) 2-16 30 minutes Ariel es 40 MG 00:00: before Medical capsule 00 morning Center meal losartan 2022-0 Yes 100mg QD Take [address] (COZAAR) 2-16 tablet [facility] 100 MG 00:00: (100 mg Medical tablet 00 total) by Center mouth in the morning. omeprazole 2022-0 Yes [address] (PriLOSEC) 2-16 30 minutes Ariel es 40 MG 00:00: before Medical capsule 00 morning Center meal losartan 2022-0 Yes 100mg QD Take [address] (COZAAR) 2-16 tablet [facility] 100 MG 00:00: (100 mg Medical tablet 00 total) by Center mouth in the morning. omeprazole 2022-0 Yes [address] (PriLOSEC) 2-16 30 minutes Ariel es 40 MG 00:00: before Medical capsule 00 morning Center meal losartan 2022-0 Yes 100mg QD Take [address] (COZAAR) 2-16 tablet [facility] 100 MG 00:00: (100 mg Medical tablet 00 total) by Center mouth in the morning. omeprazole 2022-0 Yes [address] (PriLOSEC) 2-16 30 minutes Ariel es 40 MG 00:00: before Medical capsule 00 morning Center meal losartan 2022-0 Yes 100mg QD Take [address] (COZAAR) 2-16 tablet [facility] 100 MG 00:00: (100 mg Medical tablet 00 total) by Center mouth in the morning. omeprazole 2022-0 Yes [facility] (PriLOSEC) 2-[address] 00:00: capsule 00 losartan-hy 2022-0 Yes UT droCHLOROth 2-16 Health iazide 00:00: (Hyzaar) 00 100-25 MG tablet ondansetron 2022-0 2022- No 105 4mg UT (Zofran) 2-07 02-12 Health tablet 4 mg 16:42: 16:41 42 :42 traMADol 2022-0 2022- No [id number] 50mg Q6H Take 1 UT (Ultram) 50 207 09-24 9103 tablet (50 H ealth MG tablet [...] mouth Center in the morning. ciprofloxac 2022-0 2022- No [id number] 10[drp] Q.5D Administer UT in-dexameth 09-07 92871 10 drops He alth asone 00:00: 05:59 [...] 1{table Ondansetro 4 MG 4 MG 1-11 t_on_ n 4 MG 00:00: e_tongu 00 e_and_a llow_to _dissol ve} docusate 2021-08 Yes 100 mg = 1 Mem oria sodium 100 0-08 cap, PO, l mg oral 14:59: Q12H, # 14 Herm faina capsule 00 cap, 0 Refill(s), Pharmacy: [facility] cy #[id number], 190.5, cm, 05/16/22 23:38:00 CDT, Height, 159.001, kg, 05/16/22 23:38:00 CDT, Weight senna 8.6 2021-08 Yes 8.6 mg = 1 Me moria mg oral 0-08 tab, PO, l tablet 14:59: Q12H, X 7 Sadi n 00 day, # 14 tab, 0 Refill(s), Pharmacy: [facility] cy #[id number], 190.5, cm, 05/16/22 23:38:00 CDT, Height, 159.001, kg, 05/16/22 23:38:00 CDT, Weight polyethylen 2021-08 Yes 17 gm, PO, Memoria e glycol 0-08 BID, X 14 l 3350 oral 14:59: day, # 255 He rmann powder for 00 gm, 0 reconstitut Refill(s), ion Pharmacy: [facility] #[id number], 190.5, cm, 05/16/22 23:38:00 CDT, Height, 159.001, kg, 05/16/22 23:38:00 CDT, Weight celecoxib 2021-08 Yes 200 mg = 1 Me moria 200 mg oral 0-08 cap, PO, l capsule 13:50: BID, # 28 Kelly nn 00 cap, 0 Refill(s), Pharmacy: [facility] cy #[id number], 190.5, cm, 05/16/22 23:38:00 CDT, Height, 159.001, kg, 05/16/22 23:38:00 CDT, Weight Omnipaque 2021-08 No 100 mL, Memor ia 350 mg/mL 0-08 Route: l 02:52: IVP, Drug Davidson 00 Form: SOLN, Dosing Weight 159.001, kg, ONCALL, STAT, Start date: 05/18/22 21:52:00 CDT, Duration: 1 doses or times, Dose = 2.2ml/kg, Max dose = 100ml -- "To be infused by Radiology Staff ONLY" ketOROLAC 2021-08 No 4 days. David katarzyna 15 mg/mL 0-08 l injectable 01:23: Troy solution 00 heparin 2021-08 No 5,000 Memoria 5000 0-08 unit, 1 l units/mL 01:00: mL, Route: Her jones injectable 00 SUB-Q, solution Drug form: INJ, Q8H, Dosing Weight 159.001, kg, Start date: 05/18/22 20:00:00 CDT, Duration: 30 day, Stop date: 06/17/22 16:00:00 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, 0 hydrOXYzine 2021-08 No Notes: David katarzyna 0-07 (Same as: l 22:45: Vistaril) [place] 00 Omnipaque 2021-08 No Notes: Memori a 350 mg/mL 0-07 (same l 21:28: as:Omnipaq Troy 00 ue 350). WASTE: F/P - Black; [...] 0-07 not exceed l 17:20: 4 gm/day. Troy 00 (Same as: Tylenol) tramadol 50 2021-08 No Notes: Not Memoria mg oral 0-07 to exceed l tablet 16:55: 400mg/day. Kelly nn 00 (Same As: Ultram) tramadol 50 2021-08 Yes 50 mg = 1 M emoria mg oral 0-07 tab, PO, l tablet 12:42: Q6H, PRN Davidson 00 Pain, not to exceed 400 mg/day, X 5 day, # 20 tab, 0 Refill(s), Pharmacy: [facility] #[id number], 190.5, cm, 05/16/22 23:38:00 CDT, Height, 159.001, kg, 05/16/22 23:38:00 CDT, Weight lisinopril 2021-08 No Notes: Memor ia 0-06 (Same as: l 17:27: Prinivil, Davidson 00 Zestril) docusate 2021-08 No Notes: Memoria 0-06 (Same as: l 14:00: Colace) [place] 00 (Do Not Crush) senna 2021-08 No Notes: Memoria 0-06 (Same as: l 14:00: Senokot) Davidson 00 ofloxacin 2021-08 No Notes: Memori a otic 0.3% 0-06 (Same as: l solution 14:00: Floxin Davidson 00 Otic) pantoprazol 2021-08 No Notes: David katarzyna e 0-06 Tablet l 14:00: should not Davidson 00 be chewed or crushed. (Same as: Protonix) topiramate 2021-08 No Notes: Memor ia 0-06 (Same As: l 14:00: Topamax) [place] 00 "Do Not Crush" Hazardous Drug Group 3:Reproduc tive risk Hazardous Drug -- Refer to safe handling procedure PPE Matrix ceFAZolin 2021-08 No Notes: Memori a (SCIP) 0-06 (Same as l 05:00: Ancef) Troy 00 Adult 2021-08 No 650 mg = 2 Memori a Aspirin 325 0-06 tab, PO, l mg oral 04:57: Q4H, 0 Davidson tablet 00 Refill(s) Aspercreme 2021-08 Yes 1 patch, Mem oria Odor Free 0-06 TOP, l Max 04:56: Daily, 0 Davidson Strength 00 Refill(s) Lidocaine Patches X-Large 4% topical film Saline 2021-08 No Notes: Memoria Flush 0.9% 0-06 (Same as: l 02:00: BD [place] 00 Posiflush) Keppra 500 2021-08 No Notes: Memor ia mg oral 0-06 (Same l tablet 02:00: as:Keppra) Kelly nn 00 sucralfate 2021-08 No Notes: May M emoria 0-06 interfere l 02:00: w/enteral Troy 00 feeds - Take 1 hr before or 2 hr after antacids, dairy pdt, meals & minerals - On empty stomach. For patients unable to swallow tablet, dissolve in 10mL - 30mL of water or juice and stir before giving. (Same As: Carafate) Sodium 2021-08 No 1,000 mL, Memori a Chloride 0-06 Rate: 75 l 0.9% IV 00:53: ml/hr, Troy 1,000 mL 00 Infuse over: 13.3 hr, [...] 0-06 TABLET BY l oral 00:52: MOUTH Troy enteric 00 EVERY DAY coated tablet sucralfate 2021-08 Yes 1 gm = 1 Mem oria 1 g oral 0-06 tab, PO, l tablet 00:52: Before Davidson 00 Meals & Bedtime, # 120 tab, 3 Refill(s) amoxicillin 2021-08 No 1 tab, PO, Memoria -clavulanat 0-06 BID, # 20 l e 875 00:52: tab, 0 Troy mg-125 mg 00 Refill(s) oral tablet metoclopram 2021-08 No 10 mg = 1 M emoria debbie 10 mg 0-06 tab, PO, l oral tablet 00:52: QID, # 56 H ermann 00 tab, 0 Refill(s) lidocaine 2021-08 No 0 Memoria topical 0-06 Refill(s) l patch (5% 00:52: Davidson film) 00 tramadol 50 2021-08 No 50 mg = 1 M emoria mg oral 0-06 tab, PO, l tablet 00:52: Q6H, PRN Troy 00 Pain, # 40 tab, 0 Refill(s) [...] l oral tablet 00:52: Daily, # 5 Troy 00 tab, 0 Refill(s) ondansetron 2021-08 No [...] 00:52: Daily, # Davidson 00 30 tab, 3 Refill(s) ofloxacin 2021-08 No 5 drp, Memori a otic 0.3% 0-06 BOTH EARS, l solution 00:52: BID, # 5 Kelly nn 00 mL, 0 Refill(s) Sodium 2021-08 No 1,000 mL, Memori a Chloride 0-06 Rate: 50 l 0.9% IV 00:45: ml/hr, Troy 1,000 mL 00 Infuse over: 20 hr, Route: IV, Dosing Weight 159.091 kg, Total Volume: 1,000, Start date: 05/16/22 19:45:00 CDT, Duration: 30 day, Stop date: 06/15/22 19:44:00 CDT, BSA: 2.93 m2, 0 labetalol 2021-08 No 10 mg, 2 David katarzyna 0-06 mL, Route: l 00:45: IVP, Drug [place] 00 form: INJ, Q15Min, Dosing Weight 159.091, kg, [...] Size: 4 mg Product Wasted: ___ mg [place] 2021-08 No Notes: Do Memoria 10/325 oral 0-06 not exceed l tablet 00:45: 4gm/day of Kelly acetaminop hen. (Same as: [place] 325/10) Dilaudid 2021-08 No 0.5 mg, Memori a 0-06 0.25 mL, l 00:45: Route: IVP, Drug form: SOLN, Q3H, Dosing Weight 159.091, kg, PRN Pain Score 7-10, Start date: 05/16/22 19:45:00 CDT, Duration: 30 day, Stop date: 06/15/22 19:44:00 CDT, 0 Benadryl 2021-08 No Notes: Memoria 0-06 (Same as: l 00:45: Benadryl) Chlorasepti 2021-08 No Notes: David katarzyna c 1.4% 0-06 Chlorasept l spray 00:45: ic [place] (Same as: Chlorasept ic, Sore Throat [place]) WASTE: F/P - Black; E - Municipal [...] Infuse l (Bolus) IV 23:44: Over: 1 Herm hr, Route: IV, ONCE, Priority: STAT, Dosing Weight 159.091 kg, Start date: 05/16/22 18:44:00 CDT, Stop date: 05/16/22 18:44:00 CDT No known 2021-08 No No known UT medications 0-05 medication He alth 15:32: s 45 amoxicillin 2021-08 Yes 1{tbl} Q12H Take 1 UT -clavulanat 0-03 tablet by [facility] e 00:00: mouth (Augmentin) 00 every 12 875-125 MG (twelve) tablet hours. FOR 7 DAYS topiramate 2021-08 Yes TAKE 1 UT (Topamax) 0-03 TABLET BY Healt h 25 MG 00:00: MOUTH tablet 00 EVERY 12 HOURS FOR 10 DAYS amoxicillin 2021-08 Yes 1{tbl} Q12H Take 1 UT -clavulanat 0-03 tablet by Hea lt e 00:00: mouth (Augmentin) 00 every 12 875-125 MG (twelve) tablet hours. FOR 7 DAYS topiramate 2021-08 Yes TAKE 1 UT (Topamax) 0-03 TABLET BY Healt h 25 MG 00:00: MOUTH tablet 00 EVERY 12 HOURS FOR 10 DAYS amoxicillin 2021-08 Yes 1{tbl} Q12H Take 1 UT -clavulanat 0-03 tablet by a lt e 00:00: mouth (Augmentin) 00 every 12 [...] tab, PO, l tablet 02:03: Q6H, PRN Davidson 00 nausea and vomiting, X 5 day, # [...] ia 0-02 Route: PO, l 01:19: ONCE, Troy 00 Dosing Weight 145.455, kg, Priority: STAT, Start date: 05/12/22 20:19:00 CDT, Stop date: 05/12/22 20:19:00 CDT Lactated 2021-08 No 1,000 mL, David katarzyna Ringers 0-02 Infuse l (Bolus) IV 01:19: Over: 1 Herm hr, Route: IV, ONCE, Priority: STAT, Dosing [...] Memoria Sulfate 0-01 (Same l 22:33: as:MORPhin [place] 00 e Sulfate) fentaNYL 2021-08 No Notes: Memoria 0-01 (Same as: l 17:14: Sublimaze) Preservati ve free. lidocaine 2021-08 No Notes: Memori a 1% 0-01 (Same as: l 15:19: Xylocaine) morphine 2021-08 No Notes: Memoria Sulfate 0-01 (Same l 15:19: as:MORPhin [place] 00 e Sulfate) Benadryl 2021-08 No 25 mg, Memoria 0-01 Route: l 14:48: IVP, ONCE, Dosing Weight 145.455, kg, Priority: STAT, Start date: 05/12/22 9:48:00 CDT, Stop date: 05/12/22 9:48:00 CDT Isolyte S 2021-08 No 500 mL, Memor ia PH-7.4 0-01 Infuse l (Bolus) IV 14:48: Over: 1 Herm faina 00 hr, Route: IV, Drug form: INJ, ONCE, Priority: STAT, Dosing Weight 145.455 kg, Start date: 05/12/22 9:48:00 CDT, Stop date: 05/12/22 9:48:00 CDT, Bolus Dose Compazine 2021-08 No 10 mg, Memori a 0-01 Route: l 14:47: IVPB, Drug form: INJ, ONCE, Dosing Weight 145.455, kg, Priority: STAT, Start date: 05/12/22 9:47:00 CDT, Stop date: 05/12/22 9:47:00 CDT fentaNYL 2021-08 No 50 Memoria 0-01 microgram, l 13:26: Route: Davidson 00 IVP, ONCE, Dosing Weight 145.455, kg, Priority: STAT, Start date: 05/12/22 8:26:00 CDT, Stop date: 05/12/22 8:26:00 CDT morphine 2021-08 No 4 mg, Memoria Sulfate 0 Route: l 13:23: IVP, ONCE, Dosing Weight 145.455, kg, Priority: STAT, Start date: 05/12/22 8:23:00 CDT, Stop date: 05/12/22 8:23:00 CDT ketOROLAC 2021-08 No 4 days Memor ia 0 l 10:21: MEDICATION WASTE Product Size: 30 mg Product Wasted: ___ mg lisinopril Yes 20mg QD Take 20 mg [...] EAR solution 00 TWICE A DAY ofloxacin 0 Yes INSTILL 4 UT (Floxin) 6-15 DROPS INTO Healt h 0.3 % otic 00:00: LEFT EAR solution 00 TWICE A DAY ofloxacin 0 Yes INSTILL 4 UT (Floxin) 6-15 DROPS INTO Healt h 0.3 % otic 00:00: LEFT EAR solution 00 TWICE A DAY No known No No known UT medications 311 medication He alth 13:38: s 44 Cefazolin 0 No Notes: Memori a 10-10 (Same As: l 04:00: [place] Kovacs Kefzol) MEDICATION WASTE Product Size: 1000 mg Product Wasted: ___ mg Cefazolin 0 No Notes: Memori a 3 (Same As: l 04:00: AncefDavidson Kefzol) MEDICATION WASTE Product Size: 1000 mg Product Wasted: ___ mg Oxycodone 2022-0 No 10 mg, Memori a 2- Route: PO, l 21:36: Drug form: [place] 00 TAB, ONCE, Dosing Weight 156, kg, PRN Pain Score 7-10, Start date: 10/09/21 15:36:00 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 Oxycodone 2021-0 No 10 mg, Memori a - Route: PO, l 21:36: Drug form: Davidson TAB, ONCE, Dosing Weight 156, kg, PRN Pain Score 7-10, Start date: 10/09/21 15:36:00 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 Ofirmev 2021-0 No or = 50 Memori a 2-28 kg, Start l 21:19: date: 10/09/21 15:19:00 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 Ofirmev 2021-0 No or = 50 Memori a 2-28 kg, Start l 21:19: date: 10/09/21 15:19:00 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 sugammadex 2021-0 No Route: IV, M emoria (ANES) 10-09 Drug form: l 21:05: BILLNDavidson 00 ONCE, Stop date: 10/09/21 15:05:00 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 sugammadex 2021-0 No Route: IV, M emoria (ANES) - Drug form: l 21:05: SOLN, Davidson 00 ONCE, Stop date: 10/09/21 15:05:00 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 Hydromorpho 2021-0 No Notes: David katarzyna ne - Same as l 21:02: Dilaudid Flumazenil No Notes: Memor ia - (Same as: l 21:02: Romazicon) Naloxone 2021-0 No Notes: Memoria 2-28 Same as l 21:02: Narcan Ondansetron 0 No 4 mg, Memor ia - Route: l 21:02: IVP, ONCE, Dosing Weight 156, kg, PRN Nausea & Vomiting, Start date: 10/09/21 15:02:00 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 Hydromorpho 2021-0 No Notes: David katarzyna ne -28 Same as l 21:02: Dilaudid Flumazenil 0 No Notes: Memor ia 2-28 (Same as: l 21:02: Romazicon) Naloxone 2021-0 No Notes: Memoria 10-09 Same as l 21:02: Narcan Ondansetron 0 No 4 mg, Memor ia 10-09 Route: l 21:02: IVP, ONCE, Dosing Weight 156, kg, PRN Nausea & Vomiting, Start date: 10/09/21 15:02:00 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 ondansetron 2021-0 No Route: IV, Memoria (ANES) 10-09 Drug form: l 21:00: INJ, ONCE, Stop date: 10/09/21 15:00:00 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 ondansetron 2021-0 No Route: IV, Memoria (ANES) 10-09 Drug form: l 21:00: INJ, ONCE, Stop date: 10/09/21 15:00:00 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 ceFAZolin 2021-0 No Route: IV, Me moria (ANES) 10-09 Drug form: l 20:38: INJ, ONCE, Stop date: 10/09/21 14:38:00 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 ceFAZolin 2021-0 No Route: IV, Me moria (ANES) 10-09 Drug form: l 20:38: INJ, ONCE, Stop date: 10/09/21 14:38:00 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 propofol 2021-0 No Route: IV, Mem oria (ANES) 10-09 Drug form: l 20:33: INJ, ONCE, Stop date: 10/09/21 14:33:00 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 rocuronium 2021-0 No Route: IV, M emoria (ANES) 10-09 Drug form: l 20:33: INJ, ONCE, Stop date: 10/09/21 14:33:00 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 fentaNYL 2021-0 No Route: IV, Mem oria (ANES) - Drug form: l 20:33: INJ, ONCE, Stop date: 10/09/21 14:33:00 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 dexamethaso 2021- No Route: IV, Memoria ne (ANES) 10-09 Drug form: l 20:33: INJ, ONCE, Stop date: 10/09/21 14:33:00 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 propofol 0 No Route: IV, Mem oria (ANES) 10-09 Drug form: l 20:33: INJ, ONCE, Stop date: 10/09/21 14:33:00 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 rocuronium No Route: IV, M emoria (ANES) 10-09 Drug form: l 20:33: INJ, ONCE, Stop date: 10/09/21 14:33:00 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 fentaNYL No Route: IV, Mem oria (ANES) 10-09 Drug form: l 20:33: INJ, ONCE, Stop date: 10/09/21 14:33:00 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 dexamethaso No Route: IV, Memoria ne (ANES) 10-09 Drug form: l 20:33: INJ, ONCE, Stop date: 10/09/21 14:33:00 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 lidocaine No Route: IV, Me moria (ANES) 10-09 Drug form: l 20:28: INJ, ONCE, Stop date: 10/09/21 14:28:00 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 lidocaine 2021-0 No Route: IV, Me moria (ANES) 10-09 Drug form: l 20:28: INJ, ONCE, Stop date: 10/09/21 14:28:00 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 Isolyte S 0 No Route: IV, Me moria PH 7.4 10-09 Total l (ANES) 1000 19:29: Volume: Her jones mL 00 1,000, Start date: 10/09/21 13:29:00 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, Stop date: 10/09/21 14:29:00 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 Isolyte S 0 No Route: IV, Me moria PH 7.4 10-09 Total l (ANES) 1000 19:29: Volume: Her jones mL 00 1,000, Start date: 10/09/21 13:29:00 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, Stop date: 10/09/21 14:29:00 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 Epinephrine 2021-0 Yes Notes: David katarzyna 0.01 MG/ML 10-09 (Same as: l / Lidocaine 18:26: Xylocaine H ermann Hydrochlori 00 w/Epinephr de 10 MG/ML ine) Injectable Solution Epinephrine Yes Notes: David katarzyna 0.01 MG/ML - (Same as: l / Lidocaine 18:26: Xylocaine H ermann Hydrochlori 00 w/Epinephr de 10 MG/ML ine) Injectable Solution Lidocaine No 1 patch, David katarzyna 0.05 MG/MG - Route: l Transdermal 15:00: TOP, Sadi n Patch 00 Daily, Drug form: FILM, Start date: 10/09/21 9:00:00 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, Duration: 30 day, Stop date: 11/07/21 9:00:00 CDT, 0 Levetiracet 0 No 500 mg, 1 M emoria am 500 MG 2-28 tab, l Oral Tablet 15:00: Route: PO, Davidson [Keppra] Drug form: TAB, Q12H, Dosing Weight 156, kg, Start date: 10/09/21 9:00:00 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, Duration: 30 day, Stop date: 11/07/21 21:00:00 CDT, 0 Lidocaine 2021-0 No 1 patch, David katarzyna 0.05 MG/MG 10-09 Route: l Transdermal 15:00: TOP, Sadi n Patch 00 Daily, Drug form: FILM, Start date: 10/09/21 9:00:00 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, Duration: 30 day, Stop date: 11/07/21 9:00:00 CDT, 0 Levetiracet 2021-0 No 500 mg, 1 M emoria am 500 MG 2-28 tab, l Oral Tablet 15:00: Route: PO, Davidson [Keppra] Drug form: TAB, Q12H, Dosing Weight 156, kg, Start date: 10/09/21 9:00:00 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, Duration: 30 day, Stop date: 11/07/21 21:00:00 CDT, 0 Hydromorpho 0 No Notes: David katarzyna ne 2-28 Same as l 13:57: Dilaudid Davidson 00 Hydromorpho No Notes: David katarzyna ne 2-28 Same as l 13:57: Dilaudid [place] Reglan No Notes: Memoria 2-28 (Same as: l 08:15: Reglan) Davidson 00 Dilaudid No Notes: Memoria 2-28 Same as l 08:15: Dilaudid [place] 00 Reglan No Notes: Memoria 2-28 (Same as: l 08:15: Reglan) [place] 00 Dilaudid No Notes: Memoria 2-28 Same as l 08:15: Dilaudid Davidson Sodium No 1,000 mL, Memori a Chloride 2-28 Rate: 75 l 0.9% IV 06:49: ml/hr, Troy 1,000 mL 00 Infuse over: 13.3 hr, Route: IV, Dosing Weight 156 kg, Total Volume: 1,000, Start date: 10/09/21 0:49:00 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, Duration: 30 day, Stop date: 11/08/21 0:48:00 CDT, BSA: 2.9 m2, 0 Sodium No 1,000 mL, Memori a Chloride 2-28 Rate: 75 l 0.9% IV 06:49: ml/hr, Davidson 1,000 mL 00 Infuse over: 13.3 hr, Route: IV, Dosing Weight 156 kg, Total Volume: 1,000, Start date: 10/09/21 0:49:00 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, Duration: 30 day, Stop date: 11/08/21 0:48:00 CDT, BSA: 2.9 m2, 0 Docusate No Notes: Memoria 2-28 (Same as: l 03:00: Colace) Davidson 00 (Do Not Crush) Docusate No Notes: Memoria 2-28 (Same as: l 03:00: Colace) Davidson 00 (Do Not Crush) sennosides, No Notes: David katarzyna PENITENTIARY 2-28 (Same as: l 03:00: Senokot) Davidson Saline No Notes: Memoria Flush 0.9% 2-28 (Same as: l 03:00: BD [place] 00 Posiflush) sennosides, No Notes: David katarzyna PENITENTIARY 2-28 (Same as: l 03:00: Senokot) Davidson 00 Saline No Notes: Memoria Flush 0.9% 2-28 (Same as: l 03:00: BD Davidson 00 Posiflush) Sodium No 1,000 mL, Memori a Chloride - Rate: 50 l 0.9% IV 01:57: ml/hr, Davidson 1,000 mL 00 Infuse over: 20 hr, Route: IV, Dosing Weight 156 kg, Total Volume: 1,000, Start date: 10/08/21 19:57:00 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, Duration: 30 day, Stop date: 11/07/21 19:56:00 CDT, BSA: 2.9 m2, 0 Acetaminoph No Notes: Do M emoria en 2-28 not exceed l 01:57: 4 gm/day. Troy (Same as: Tylenol) Acetaminoph No Notes: David katarzyna en 325 MG / - (Same as: l Hydrocodone 01:57: [place] Kelly nn Bitartrate 00 325/5) Do 5 MG Oral not exceed Tablet 4gm/day of acetaminop hen. Morphine No Notes: Memoria 2-28 (Same l 01:57: as:MORPhin [place] 00 e Sulfate) Bisacodyl No Notes: Memori a 2-28 (Same As: l 01:57: Dulcolax, Davidson 00 [...] PRN Hypertensi on, Start date: 10/08/21 19:57:00 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, Duration: 3 doses or times, Stop date: Limited # of times, 0 Saline No Notes: Memoria Flush 0.9% 2-28 (Same as: l 01:57: BD [place] Posiflush) Insulin No Notes: Memoria regular - (Same as: l 01:57: Humulin R) Davidson [...] Total Volume: 1,000, Start date: 10/08/21 19:57:00 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, Duration: 30 day, Stop date: 11/07/21 19:56:00 CDT, BSA: 2.9 m2, 0 Acetaminoph No Notes: Do M emoria en - not exceed l 01:57: 4 gm/day. Troy (Same as: Tylenol) Acetaminoph No Notes: David katarzyna en 325 MG / 10-09 (Same as: l Hydrocodone 01:57: [place] Kelly nn Bitartrate 00 325/5) Do 5 MG Oral not exceed Tablet 4gm/day of acetaminop hen. Morphine No Notes: Memoria - (Same l 01:57: as:MORPhin [place] 00 e Sulfate) Bisacodyl No Notes: Memori a - (Same As: l 01:57: Dulcolax, Troy 00 Bisco-Lax) Ondansetron No Notes: David katarzyna - (Same as: l 01:57: Zofran) MEDICATION WASTE Product Size: 4 mg Product Wasted: ___ mg Hydralazine No Notes: David katarzyna - (Same as: l 01:57: Apresoline [place] 00 ) Push over 5 minutes Labetalol No 10 mg, 2 David katarzyna 2-28 mL, Route: l 01:57: IVP, Drug form: INJ, Q15Min, Dosing Weight 156, kg, PRN Hypertensi on, Start date: 10/08/21 19:57:00 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, Duration: 3 doses or times, Stop date: Limited # of times, 0 Saline No Notes: Memoria Flush 0.9% - (Same as: l 01:57: BD Posiflush) Insulin No Notes: Memoria regular 2-28 (Same as: l 01:57: Humulin R) Roll in palms of hands gently; Do not shake vigorously . WASTE: F/P - Black; E - Municipal Trash Bin Stable for 31 days at room temperatur e Expires in days from ____Date Dilaudid No Notes: Memoria 2-28 Same as l 01:30: Dilaudid Dilaudid No Notes: Memoria 2-28 Same as l 01:30: Dilaudid Levetiracet Yes 500 mg = 1 Memoria am 500 MG 2-24 tab, PO, l Oral Tablet 13:52: Q12H, # 60 [place] [Keppra] 00 tab, 0 Refill(s), Pharmacy: [facility] cy #[id number], 190.5, cm, 10/03/21 6:40:00 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, Height, 159.3, kg, 10/03/21 6:40:00 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, Weight docusate Yes 2 cap, PO, Mem oria sodium 50 2-24 QPM, X 10 l MG / 13:52: day, # 20 Davidson sennosides, 00 cap, 0 PENITENTIARY 8.6 MG Refill(s), Oral Pharmacy: [facility] #[id number], 190.5, cm, 10/03/21 6:40:00 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, Height, 159.3, kg, 10/03/21 6:40:00 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, Weight magnesium Yes 8.725 gm = Me moria citrate 2-24 150 ml, l 58.2 MG/ML 13:52: PO, ONCE, He rmann Oral 00 if no Solution bowel movement in couple days, # 300 ml, 0 Refill(s), Pharmacy: [facility] #[id number], 190.5, cm, 10/03/21 6:40:00 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, Height, 159.3, kg, 10/03/21 6:40:00 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, Weight POLYETHYLEN Yes 17 gm, PO, Memoria E GLYCOL 2-24 Daily, X l 3350 142 13:52: 10 day, # Herm faina MG/ML Oral 00 170 gm, 0 Solution Refill(s), [Miralax] Pharmacy: [facility] #[id number], 190.5, cm, 10/03/21 6:40:00 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, Height, 159.3, kg, 10/03/21 6:40:00 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, Weight Ondansetron No 4 mg = 1 Me moria 4 MG Oral 2-24 tab, PO, l Tablet 13:52: Q8H, PRN [place] [Zofran] 00 Nausea/vom iting, X 3 day, # 10 tab, 0 Refill(s), Pharmacy: [facility] #[id number], 190.5, cm, 10/03/21 6:40:00 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, Height, 159.3, kg, 10/03/21 6:40:00 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, Weight Acetaminoph Yes 1 tab, PO, Memoria en 325 MG / 2-24 Q4-6H, PRN l Hydrocodone 13:52: Pain Score Davidson Bitartrate 00 4-6, X 5 5 MG Oral day, # 30 Tablet tab, 0 [[place] Refill(s), 5/325] other Levetiracet Yes 500 mg = 1 Memoria am 500 MG 2-24 tab, PO, l Oral Tablet 13:52: Q12H, # 60 [place] [Keppra] 00 tab, 0 Refill(s), Pharmacy: [facility] #[id number], 190.5, cm, 10/03/21 6:40:00 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, Height, 159.3, kg, 10/03/21 6:40:00 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, Weight docusate Yes 2 cap, PO, Mem oria sodium 50 2-24 QPM, X 10 l MG / 13:52: day, # 20 [place] sennosides, 00 cap, 0 PENITENTIARY 8.6 MG Refill(s), Oral Pharmacy: [facility] #[id number], 190.5, cm, 10/03/21 6:40:00 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, Height, 159.3, kg, 10/03/21 6:40:00 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, Weight magnesium 2021-0 Yes 8.725 gm = Me moria citrate 2-24 150 ml, l 58.2 MG/ML 13:52: PO, ONCE, He rmann Oral 00 if no Solution bowel movement in couple days, # 300 ml, 0 Refill(s), Pharmacy: [facility] #[id number], 190.5, cm, 10/03/21 6:40:00 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, Height, 159.3, kg, 10/03/21 6:40:00 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, Weight POLYETHYLEN 2021-0 Yes 17 gm, PO, Memoria E GLYCOL 2-24 Daily, X l 3350 142 13:52: 10 day, # Herm faina MG/ML Oral 00 170 gm, 0 Solution Refill(s), [Miralax] Pharmacy: [facility] [place] #[id number], 190.5, cm, 10/03/21 6:40:00 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, Height, 159.3, kg, 10/03/21 6:40:00 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, Weight Ondansetron 2021-0 No 4 mg = 1 Me moria 4 MG Oral 2-24 tab, PO, l Tablet 13:52: Q8H, PRN [place] [Zofran] 00 Nausea/vom iting, X 3 day, # 10 tab, 0 Refill(s), Pharmacy: [facility] #[id number], 190.5, cm, 10/03/21 6:40:00 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, Height, 159.3, kg, 10/03/21 6:40:00 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, Weight Acetaminoph 2021-0 Yes 1 tab, PO, Memoria en 325 MG / 2-24 Q4-6H, PRN l Hydrocodone 13:52: Pain Score [place] Bitartrate 00 4-6, X 5 5 MG Oral day, # 30 Tablet tab, 0 [[place] Refill(s), 5/325] other heparin No Notes: Memoria 5000 2-23 porcine l units/mL 22:00: heparin Sadi n injectable 00 solution heparin No Notes: Memoria 5000 2-23 porcine l units/mL 22:00: heparin Sadi n injectable 00 solution Saline No Notes: Memoria Flush 0.9% 2-23 Same as: l 03:00: BD [place] Posiflush Sterile Levetiracet No Notes: David katarzyna am 500 MG 2-23 (Same l Oral Tablet 03:00: as:Keppra) [place] [Keppra] 00 Saline No Notes: Memoria Flush 0.9% 2-23 Same as: l 03:00: BD [place] Posiflush Sterile Levetiracet No Notes: David katarzyna am 500 MG 2-23 (Same l Oral Tablet 03:00: as:Keppra) [place] [Keppra] 00 Cefazolin No Notes: Memori a 2-23 (Same as l 02:00: Ancef) [place] 00 Cefazolin No Notes: Memori a 2-23 (Same as l 02:00: Ancef) [place] 00 Docusate No Notes: Memoria 2-22 (Same as: l 23:00: Colace) (Do Not Crush) sennosides, No Notes: David katarzyna PENITENTIARY 2-22 (Same as: l 23:00: Senokot) Famotidine No Notes: Memor ia 20 MG Oral 2-22 (Same as: l Tablet 23:00: Pepcid) Docusate No Notes: Memoria 2-22 (Same as: l 23:00: Colace) [place] 00 (Do Not Crush) sennosides, No Notes: David katarzyna PENITENTI[facility] 2-22 (Same as: l 23:00: Senokot) Famotidine No Notes: Memor ia 20 MG Oral 2-22 (Same as: l Tablet 23:00: Pepcid) [place] 00 Hydromorpho 2021-0 No 0.5 mg, Mem oria ne 10-03 Route: l 20:05: IVP, ONCE, Dosing Weight 159.3, kg, Priority: STAT, Start date: 10/03/21 14:05:00 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, Stop date: 10/03/21 14:05:00 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 Hydromorpho 2021-0 No 0.5 mg, Mem oria ne 10-03 Route: l 20:05: IVP, ONCE, Dosing Weight 159.3, kg, Priority: STAT, Start date: 10/03/21 14:05:00 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, Stop date: 10/03/21 14:05:00 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 metoprolol 2021-0 No Route: IV, Thomas emoria (ANES) 10-03 Drug form: l 19:20: INJ, ONCE, Stop date: 10/03/21 13:20:00 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 metoprolol 2021-0 No Route: IV, M emoria (ANES) 10-03 Drug form: l 19:20: INJ, ONCE, Stop date: 10/03/21 13:20:00 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 Oxycodone 2021-0 No 10 mg, Memori a Hydrochlori 10-03 Route: PO, l de 5 MG 19:16: Drug form: Herm faina Oral Tablet 00 TAB, Q4H, Dosing Weight 159.3, kg, PRN Pain Score 7-10, Start date: 10/03/21 13:16:00 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, Duration: 30 day, Stop date: 11/02/21 13:15:00 CDT Oxycodone 2-0 No 10 mg, Memori a Hydrochlori 10-03 Route: PO, l de 5 MG 19:16: Drug form: Herm faina Oral Tablet 00 TAB, Q4H, Dosing Weight 159.3, kg, PRN Pain Score 7-10, Start date: 10/03/21 13:16:00 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, Duration: 30 day, Stop date: 11/02/21 13:15:00 CDT sugammadex 2021-0 No Route: IV, M emoria (ANES) 10-03 Drug form: l 18:37: SOLN, ONCE, Stop date: 10/03/21 12:37:00 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 sugammadex No Route: IV, M emoria (ANES) 10-03 Drug form: l 18:37: SOLN, ONCE, Stop date: 10/03/21 12:37:00 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 ondansetron No Route: IV, Memoria (ANES) 2- Drug form: l 18:22: INJ, ONCE, Stop date: 10/03/21 12:22:00 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 ondansetron No Route: IV, Memoria (ANES) 2- Drug form: l 18:22: INJ, ONCE, Stop date: 10/03/21 12:22:00 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 Dexamethaso No Notes: David katarzyna ne 2- Give with l 18:00: food. (Same As: Decadron) Dexamethaso No Notes: David katarzyna ne - [...] exceed l Hydrocodone 17:50: 4gm/day of Bitartrate 00 acetaminop 10 MG Oral hen. (Same Tablet as: [place] [[place] 325/10) 10/325] Dilaudid No Notes: Memoria 2- Same as l 17:50: Dilaudid Benadryl No Notes: Memoria 2-22 (Same as: l 17:50: Benadryl) phenol No Notes: Memoria 2- Chlorasept l 17:50: ic [place] (Same as: Chlorasept ic, Sore Throat [place]) WASTE: F/P - Black; E - Municipal Trash Bin Bisacodyl No Notes: Memori a 2-22 (Same As: l 17:50: Dulcolax, Bisco-Lax) Robaxin No Notes: Memoria 2-22 (Same l 17:50: as:Robaxin ) Melatonin 3 No Notes: David katarzyna MG Extended 2- (Same as: l Release 17:50: Melatonin) Herm faina Tablet 00 Tylenol No Notes: Do Memor ia 2-22 not exceed l 17:50: 4 gm/day. [place] (Same as: Tylenol) Reglan No Notes: Memoria 2-22 (Same as: l 17:50: Reglan) Phenergan No Notes: Do Mem oria 2- not give l 17:50: IV push. (Same as: Phenergan) Saline No Notes: Memoria Flush 0.9% 2-22 Same as: l 17:50: BD Posiflush Sterile Sodium No 1,000 mL, Memori a Chloride - Rate: 100 l 0.9% IV 17:50: ml/hr, [place] 1,000 mL 00 Infuse over: 10 hr, Route: IV, Dosing Weight 159.3 kg, Total Volume: 1,000, Start date: 10/03/21 11:50:00 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, Duration: 30 day, Stop date: 11/02/21 11:49:00 CDT, BSA: 2.93 m2, 0 Labetalol No 10 mg, 2 David katarzyna 2-22 mL, Route: l 17:50: IVP, Drug form: INJ, Q15Min, Dosing Weight 159.3, kg, PRN Hypertensi on, Start date: 10/03/21 11:50:00 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, Duration: 3 doses or times, Stop date: 10/04/21 0:00:00 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, 0 Hydralazine No Notes: David katarzyna 2-22 [...] 10 MG Oral hen. (Same Tablet as: [place] [[place] 325/10) 10/325] Dilaudid No Notes: Memoria 2-22 Same as l 17:50: Dilaudid Benadryl No Notes: Memoria 2-22 (Same as: l 17:50: Benadryl) phenol No Notes: Memoria 2-22 Chlorasept l 17:50: ic [place] (Same as: Chlorasept ic, Sore Throat [place]) WASTE: F/P - Black; E - Municipal [...] Total Volume: 1,000, Start date: 10/03/21 11:50:00 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, Duration: 30 day, Stop date: 11/02/21 11:49:00 CDT, BSA: 2.93 m2, 0 Labetalol 2021-0 No 10 mg, 2 David katarzyna 2-22 mL, Route: l 17:50: IVP, Drug form: INJ, Q15Min, Dosing Weight 159.3, kg, PRN Hypertensi on, Start date: 10/03/21 11:50:00 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, Duration: 3 doses or times, Stop date: 10/04/21 0:00:00 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, 0 lidocaine 2021-0 No Route: IV, Me moria (ANES) 10-03 Drug form: l 16:45: INJ, ONCE, Stop date: 10/03/21 10:45:00 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 rocuronium 2021-0 No Route: IV, M emoria (ANES) 10-03 Drug form: l 16:45: INJ, ONCE, Stop date: 10/03/21 10:45:00 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 dexamethaso 2021-0 No Route: IV, Memoria ne (ANES) - Drug form: l 16:45: INJ, ONCE, Stop date: 10/03/21 10:45:00 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 lidocaine 2021-0 No Route: IV, Me moria (ANES) - Drug form: l 16:45: INJ, ONCE, Stop date: 10/03/21 10:45:00 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 rocuronium 2021-0 No Route: IV, M emoria (ANES) 2- Drug form: l 16:45: INJ, ONCE, Stop date: 10/03/21 10:45:00 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 dexamethaso 2021-0 No Route: IV, Memoria ne (ANES) 2- Drug form: l 16:45: INJ, ONCE, Stop date: 10/03/21 10:45:00 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 phenylephri 2021-0 No Route: IV, Memoria ne (ANES) 2-22 Drug form: l 16:40: INJ, ONCE, [place] 00 Stop date: 10/03/21 10:40:00 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 phenylephri No Route: IV, Memoria ne (ANES) 2-22 Drug form: l 16:40: INJ, ONCE, [place] 00 Stop date: 10/03/21 10:40:00 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 Hydralazine No Notes: David katarzyna 2-22 (Same as: l 16:37: Apresoline [place] ) Push over 5 minutes Labetalol No 10 mg, 2 David katarzyna 2-22 mL, Route: l 16:37: IVP, Drug [place] form: INJ, Q5Min, Dosing Weight 159.3, kg, PRN Elevated BP, Start date: 10/03/21 10:37:00 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, Duration: 5 doses or times, Stop date: 10/04/21 0:00:00 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, 0 Oxycodone No Notes: Memori a Hydrochlori 2- (Same as: l de 5 MG 16:37: [...] katarzyna 2-22 (Same as: l 16:37: Apresoline [place] ) Push over 5 minutes Labetalol No 10 mg, 2 David katarzyna 2-22 mL, Route: l 16:37: IVP, Drug [place] form: INJ, Q5Min, Dosing Weight 159.3, kg, PRN Elevated BP, Start date: 10/03/21 10:37:00 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, Duration: 5 doses or times, Stop date: 10/04/21 0:00:00 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, 0 Oxycodone No Notes: Memori a Hydrochlori - (Same as: l de 5 MG 16:37: Roxicodone Herm faina Oral Tablet ) Hydromorpho No Notes: David katarzyna ne 10-03 Same as l 16:37: Dilaudid Flumazenil No Notes: Memor ia - (Same as: l 16:37: Romazicon) Naloxone No Notes: Memoria - Same as l 16:37: Narcan Ondansetron No Notes: David katarzyna - (Same as: l 16:37: Zofran) MEDICATION WASTE Product Size: 4 mg Product Wasted: ___ mg propofol No Route: IV, Mem oria (ANES) 2- Drug form: l 16:35: INJ, ONCE, Stop date: 10/03/21 10:35:00 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 fentaNYL No Route: IV, Mem oria (ANES) 2-22 Drug form: l 16:35: INJ, ONCE, Stop date: 10/03/21 10:35:00 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 propofol No Route: IV, Mem oria (ANES) 2-22 Drug form: l 16:35: INJ, ONCE, Stop date: 10/03/21 10:35:00 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 fentaNYL No Route: IV, Mem oria (ANES) 2-22 Drug form: l 16:35: INJ, ONCE, Stop date: 10/03/21 10:35:00 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 midazolam No Route: IV, Me moria (ANES) 2-22 Drug form: l 16:24: SOLN, ONCE, Stop date: 10/03/21 10:24:00 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 ceFAZolin No Route: IV, Me moria (ANES) 2-22 Drug form: l 16:24: INJ, ONCE, Stop date: 10/03/21 10:24:00 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 midazolam 2021-0 No Route: IV, Me moria (ANES) 10-03 Drug form: l 16:24: SOLN, ONCE, Stop date: 10/03/21 10:24:00 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 ceFAZolin 2021-0 No Route: IV, Me moria (ANES) 10-03 Drug form: l 16:24: INJ, ONCE, Stop date: 10/03/21 10:24:00 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 levETIRAcet 0 No Route: IV, Memoria am (ANES) 10-03 Drug form: l 100 mg 16:20: INJ, Start date: 10/03/21 10:20:00 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, Stop date: 10/03/21 11:20:00 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 levETIRAcet 2021- No Route: IV, Memoria am (ANES) 10-03 Drug form: l 100 mg 16:20: INJ, Start date: 10/03/21 10:20:00 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, Stop date: 10/03/21 11:20:00 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 propofol 2021-0 No Route: IV, Mem oria (ANES) 10 10-03 Drug form: l mg 15:26: INJ, Start date: 10/03/21 9:26:00 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, Stop date: 10/03/21 10:26:00 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 propofol 2021-0 No Route: IV, Mem oria (ANES) 10 10-03 Drug form: l mg 15:26: INJ, Start date: 10/03/21 9:26:00 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, Stop date: 10/03/21 10:26:00 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 Isolyte S No Route: IV, Me moria PH 7.4 - Total l (ANES) 1000 14:26: Volume: Her jones mL 00 1,000, Start date: 10/03/21 8:26:00 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, Stop date: 10/03/21 9:26:00 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 Isolyte S 2021-0 No Route: IV, Me moria PH 7.4 - Total l (ANES) 1000 14:26: Volume: Her jones mL 00 1,000, Start date: 10/03/21 8:26:00 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, Stop date: 10/03/21 9:26:00 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 Isolyte S No Notes: Memori a PH 7.4 2- (Same as: l 1,000 mL 12:35: Isolyte S Herm faina 00 PH7.4, Normosol-R PH 7.4, Plasma-Lyt e A ) Acetaminoph No 1,000 mg, M emoria en 10-03 Route: PO, l 12:35: Drug form: [place] 00 TAB, PRE OP, Dosing Weight 160.3, kg, Priority: NOW, Start date: 10/03/21 6:35:00 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, Duration: 1 doses or times Isolyte S No Notes: Memori a PH 7.4 - (Same as: l 1,000 mL 12:35: Isolyte S Herm faina 00 PH7.4, Normosol-R PH 7.4, Plasma-Lyt e A ) Acetaminoph No 1,000 mg, M emoria en 10-03 Route: PO, l 12:35: Drug form: [place] 00 TAB, PRE OP, Dosing Weight 160.3, kg, Priority: NOW, Start date: 10/03/21 6:35:00 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, Duration: 1 doses or times NS + KCL No Notes: Memoria 20mEq/L -22 PREMIX IV l 1000ml 12:00: - Do Not [place] (Premix) 00 Alter 1,000 mL WASTE: F/P - Sink; E - Municipal Trash Bin ceFAZolin + No Notes: David katarznya sterile 2-22 (Same As: l water 30 mL 12:00: Ancef, Herm faina 00 Kefzol) MEDICATION WASTE Product Size: 1000 mg Product Wasted: ___ mg NS + KCL No Notes: Memoria 20mEq/L 2-22 PREMIX IV l 1000ml 12:00: - Do Not [place] (Premix) 00 Alter 1,000 mL WASTE: F/P - Sink; E - Municipal Trash Bin ceFAZolin + No Notes: Daivd katarzyna sterile 2-22 (Same As: l water 30 mL 12:00: Ancef Herm faina 00 Kefzol) MEDICATION WASTE Product Size: 1000 mg Product Wasted: ___ mg Acetaminoph 2021-0 No 1 tab, PO, Memoria en 300 MG / 2-21 PRN, PRN l Codeine 18:02: Headache Sadi n Phosphate 00 1-5, 0 30 MG Oral Refill(s) Tablet [Tylenol with Codeine #3] Zofran No PRN, 0 Memoria 2-21 Refill(s) l 18:02: [place] 00 Acetaminoph 2021-0 No 1 tab, PO, Memoria en 300 MG / 2-21 PRN, PRN l Codeine 18:02: Headache Sadi n Phosphate 00 1-5, 0 30 MG Oral Refill(s) Tablet [Tylenol with Codeine #3] Zofran No PRN, 0 Memoria 2-21 Refill(s) l 18:02: [place] Sodium 2021-0 No 250 mL, Memoria Chloride 2-21 Rate: To l 0.9% 17:06: prime line [place] (titrate) 00 and flush 250 mL remaining blood products., Dosing Weight 160.3, kg, Route: IV, Total Volume: 250, Start Date: 10/02/21 11:06:00 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, Duration: 1 day, Stop date: 10/03/21 11:05:00 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, Replace Every: 24 hr, 0 Sodium 2021-0 No 250 mL, Memoria Chloride 2-21 Rate: To l 0.9% 17:06: prime line [place] (titrate) 00 and flush 250 mL remaining blood products., Dosing Weight 160.3, kg, Route: IV, Total Volume: 250, Start Date: 10/02/21 11:06:00 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, Duration: 1 day, Stop date: 10/03/21 11:05:00 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, Replace Every: 24 hr, 0 Acetaminoph 2020-0 No 1 tab, David katarzyna en 325 MG / 9-30 Route: PO, l Hydrocodone 12:17: Drug Form: [place] Bitartrate 00 TAB, 5 MG Oral Dosing Tablet Weight 139.409, kg, ONCE, STAT, Start date: 05/11/21 7:17:00 CDT, Stop date: 05/11/21 7:17:00 CDT Acetaminoph 2020-0 No 1 tab, David katarzyna en 325 MG / 05-11 Route: PO, l Hydrocodone 12:17: Drug Form: [place] Bitartrate 00 TAB, 5 MG Oral Dosing Tablet Weight 139.409, kg, ONCE, STAT, Start date: 05/11/21 7:17:00 CDT, Stop date: 05/11/21 7:17:00 CDT Acetaminoph 2020-0 No 1,000 mg, M emoria en 05-11 Route: PO, l 07:46: ONCE, [place] Dosing Weight 139.409, kg, Start date: 05/11/21 2:46:00 CDT, Stop date: 05/11/21 2:46:00 CDT Acetaminoph 2020-0 No 1,000 mg, M emoria en 05-11 Route: PO, l 07:46: ONCE, [place] Dosing Weight 139.409, kg, Start date: 05/11/21 2:46:00 CDT, Stop date: 05/11/21 2:46:00 CDT Iohexol 2020-0 No 100 mL, Memoria 05-11 Route: l 07:23: IVP, Drug [place] Form: SOLN, Dosing Weight 139.409, kg, ONCALL, STAT, Start date: 05/11/21 2:23:00 CDT, Duration: 1 doses or times, Dose = 2.2ml/kg, Max dose = 100ml -- "To be infused by Radiology Staff ONLY" Iohexol 2020-0 No 100 mL, Memoria 05-11 Route: l 07:23: IVP, Drug [place] Form: SOLN, Dosing Weight 139.409, kg, ONCALL, [...] HOURS FOR [place] 10 DAYS Kenalog Kenalog 2019- No 40mg Common (Triamcinol (Triamcinol 0-12 S pirit one) one) 00:00: - [facility] 00 [facility] Kenalog Kenalog 2019- No 40mg Common (Triamcinol (Triamcinol 0-12 S pirit one) one) 00:00: - [facility] Kenalog Kenalog 2019- No 40mg Common (Triamcinol (Triamcinol 0-12 S pirit one) one) 00:00: - [facility] Kenalog Kenalog 2020-1 No 40mg Common (Triamcinol (Triamcinol 0-12 S pirit one) one) 00:00: - [facility] Kenalog Kenalog 2020-1 No 40mg Common (Triamcinol (Triamcinol 0-12 S pirit one) one) 00:00: - [facility] Amoxicillin Amoxicillin 2019-1 2020- No 1{table BID Amoxicilli -Pot -Pot 0-12 10-22 t} n-Pot Clavulanate Clavulanate 00:00: 00:00 Clavulanat 875-125 MG 875-125 MG 00 :00 e 875-125 MG Promethazin Promethazin 2020-0 2020- No Norah 1 tablet Common e HCl e HCl 4-28 05-03 [place] as needed Spirit 00:00: 00:00 for n/v - [facility] 00 :00 [facility] Bupivicaine Bupivicaine 2020-0 No 4mL Common [place] 4-06 Spirit 00:00: - [facility] 00 [facility] Kenalog Kenalog 2020-0 No 40mg Common (Triamcinol (Triamcinol 4-06 S pirit one) one) 00:00: - [facility] Bupivicaine Bupivicaine 2020-0 No 4mL Common [place] 4-06 Spirit 00:00: - [facility] Kenalog Kenalog 2020-0 No 40mg Common (Triamcinol (Triamcinol 4-06 S pirit one) one) 00:00: - [facility] Bupivicaine Bupivicaine 2020-0 No 4mL Common [place] 4-06 Spirit 00:00: - [facility] Kenalog Kenalog 2020-0 No 40mg Common (Triamcinol (Triamcinol 4-06 S pirit one) one) 00:00: - [facility] Bupivicaine Bupivicaine 2020-0 No 4mL Common [place] 4-06 Spirit 00:00: - [facility] Kenalog Kenalog 2020-0 No 40mg Common (Triamcinol (Triamcinol 4-06 S pirit one) one) 00:00: - [facility] Bupivicaine Bupivicaine 2019-0 No 4mL Common [place] 4-06 Spirit 00:00: - [facility] Kenalog Kenalog 2019-0 No 40mg Common (Triamcinol (Triamcinol 4-06 S pirit one) one) 00:00: - [facility] ondansetron Yes [id number] 4mg Take 1 [facility] (ZOFRAN 3-11 tablet by ity of ODT) 4 mg 00:00: mouth [place] disintegrat 00 every 8 Medic al ing tablet (eight) Branch hours as needed for Nausea and Vomiting (N/V). benzonatate 0 Yes [id number] 200mg Take 1 [facility] 200 mg 3-11 capsule by ity of capsule 00:00: mouth 3 [place] 00 (three) Medical times [place] daily as needed for Cough for up to 20 doses. ibuprofen 2019-0 Yes [id number] 600mg Take 1 U nivers 600 mg [...] Oxycodone 2017-08 No 5 mg, Memoria Hydrochlori 1-28 Route: PO, l de 5 MG 22:24: Drug form: Herm faina Oral Tablet 00 TAB, ONCE, Dosing Weight 139.409, kg, PRN Pain Score 4-6, Start date: 07/09/18 16:24:00 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 Oxycodone 2017-08 No 5 mg, Memoria Hydrochlori 09-08 Route: PO, l de 5 MG 22:24: Drug form: Herm faina Oral Tablet 00 TAB, ONCE, Dosing Weight 139.409, kg, PRN Pain Score 4-6, Start date: 07/09/18 16:24:00 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 Promethazin 2017-08 No Notes: Do M emoria [...] ne 09-08 Same as: l 21:26: Dilaudid [place] 00 Naloxone 2017-08 No Notes: Memoria 09-08 Same as l 21:26: Narcan Ephedrine 2017-08 No Notes: Memori a 09-08 final l 21:26: concentrat ion 5 mg/mL Acetaminoph 2017-08 No Notes: Max Memoria en 09-08 acetaminop l 21:26: hen 4000 [place] 00 mg/day (4 gm/day). (Same as: Tylenol Extra Strength) Fentanyl 2017-08 No Notes: Memoria 09-08 (Same as: l 21:26: Sublimaze) Preservati ve free. Hydralazine 2017-08 No Notes: David katarzyna 09-08 (Same as: l 21:26: Apresoline ) Push over 5 minutes Labetalol 2017-08 No 10 mg, 2 David katarzyna -28 mL, Route: l 21:26: IVP, Drug form: INJ, Q5Min, Dosing Weight 139.409, kg, PRN Elevated BP, Start date: 07/09/18 15:26:00 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, Duration: 5 doses or times, Stop date: [...] PRN Elevated BP, Start date: 07/09/18 15:26:00 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, Duration: 5 doses or times, Stop date: [...] 21:19: INJ, ONCE, Stop date: 07/09/18 15:19:00 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 ondansetron 2017-08 No Route: IV, Memoria (ANES) 09-08 Drug form: l 21:19: INJ, ONCE, Stop date: 07/09/18 15:19:00 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 ceFAZolin 2017-08 No Route: IV, Me moria (ANES) 09-08 Drug form: l 20:43: INJ, ONCE, Stop date: 07/09/18 14:43:00 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 lidocaine 2017-08 No Route: IV, Me moria (ANES) 09-08 Drug form: l 20:43: INJ, ONCE, Stop date: 07/09/18 14:43:00 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 propofol 2017-08 No Route: IV, Mem oria (ANES) 09-08 Drug form: l 20:43: INJ, ONCE, Stop date: 07/09/18 14:43:00 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 fentaNYL 2017-08 No Route: IV, Mem oria (ANES) 09-08 Drug form: l 20:43: INJ, ONCE, Stop date: 07/09/18 14:43:00 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 ceFAZolin 2017-08 No Route: IV, Me moria (ANES) 09-08 Drug form: l 20:43: INJ, ONCE, Stop date: 07/09/18 14:43:00 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 lidocaine 2017-08 No Route: IV, Me moria (ANES) 09-08 Drug form: l 20:43: INJ, ONCE, Stop date: 07/09/18 14:43:00 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 propofol 2017-08 No Route: IV, Mem oria (ANES) 09-08 Drug form: l 20:43: INJ, ONCE, [place] 00 Stop date: 07/09/18 14:43:00 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 fentaNYL 2017-08 No Route: IV, Mem oria (ANES) 09-08 Drug form: l 20:43: INJ, ONCE, [place] 00 Stop date: 07/09/18 14:43:00 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 metoclopram 2017-08 No Route: IV, Memoria debbie (ANES) 09-08 Drug form: l 20:38: INJ, ONCE, [place] 00 Stop date: 07/09/18 14:38:00 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 famotidine 2017-08 No Route: IV, M emoria (ANES) 09-08 Drug form: l 20:38: INJ, ONCE, Stop date: 07/09/18 14:38:00 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 dexamethaso 2017-08 No Route: IV, Memoria ne (ANES) 09-08 Drug form: l 20:38: INJ, ONCE, Stop date: 07/09/18 14:38:00 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 midazolam 2017-08 No Route: IV, Me moria (ANES) 09-08 Drug form: l 20:38: SOLN, [place] ONCE, Stop date: 07/09/18 14:38:00 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 metoclopram 2017-08 No Route: IV, Memoria debbie (ANES) 09-08 Drug form: l 20:38: INJ, ONCE, Stop date: 07/09/18 14:38:00 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 famotidine 2017-08 No Route: IV, M emoria (ANES) 09-08 Drug form: l 20:38: INJ, ONCE, Stop date: 07/09/18 14:38:00 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 dexamethaso 2017-08 No Route: IV, Memoria ne (ANES) 09-08 Drug form: l 20:38: INJ, ONCE, [place] 00 Stop date: 07/09/18 14:38:00 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 midazolam 2017-08 No Route: IV, Me moria (ANES) 09-08 Drug form: l 20:38: SOLN, [place] 00 ONCE, Stop date: 07/09/18 14:38:00 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 Lactated 2017-08 No Route: IV, Mem oria Ringers 1-28 Total l Injection 19:45: Volume: Kelly nn IV (ANES) 00 1,000, 1000 mL Start date: 07/09/18 13:45:00 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, Stop date: 07/09/18 14:45:00 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 Lactated 2017-08 No Route: IV, Mem oria Ringers 1-28 Total l Injection 19:45: Volume: Kelly nn IV (ANES) 00 1,000, 1000 mL Start date: 07/09/18 13:45:00 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, Stop date: 07/09/18 14:45:00 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 Famotidine 2017-08 No Notes: Memor ia 40 MG Oral - (Same as: l Tablet 19:37: Pepcid) [place] [Pepcid] 00 Famotidine 2017-08 No Notes: Memor ia 40 MG Oral - (Same as: l Tablet 19:37: Pepcid) [place] [Pepcid] 00 Celebrex 2017-08 No 200 mg, Memori a 09-08 Route: PO, l 19:00: Drug form: [place] 00 MARITZA CALIXTO, Dosing Weight 140.909, kg, Start date: 07/09/18 13:00:00 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, Duration: 30 day, Stop date: 08/08/18 12:59:00 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 Lidocaine 2017-08 No Notes: Memori a Hydrochlori -28 Preservati l de 10 MG/ML 19:00: ve free. He rmann Injectable 00 (Same as: Solution Xylocaine MPF) Famotidine 2017-08 No Notes: [facility] ia 09-08 (Same as: l 19:00: Pepcid) [place] 00 Can be dilute in 5-10cc NS IVP: Slow IV push over at least 2 minutes. Celebrex 2017-08 No 200 mg, Memori a 09-08 Route: PO, l 19:00: Drug form: [place] 00 MARITZA CALIXTO, Dosing Weight 140.909, kg, Start date: 07/09/18 13:00:00 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, Duration: 30 day, Stop date: 08/08/18 12:59:00 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 Lidocaine 2017-08 No Notes: Memori a Hydrochlori -28 Preservati l de 10 MG/ML 19:00: ve free. He rmann Injectable 00 (Same as: Solution Xylocaine MPF) Famotidine 2017-08 No Notes: [facility] ia 09-08 (Same as: l 19:00: Pepcid) [place] 00 Can be dilute in 5-10cc NS IVP: Slow IV push over at least 2 minutes. Zofran 2017-08 No 4 mg, Memoria 09-08 Route: l 18:53: IVP, Drug [place] 00 form: INJ, ONCE, Dosing Weight 139.409, kg, Priority: STAT, Start date: 07/09/18 12:53:00 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, Stop date: 07/09/18 12:53:00 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 Zofran 2017-08 No 4 mg, [facility]oria 09-08 Route: l 18:53: IVP, Drug [place] 00 form: INJ, ONCE, Dosing Weight 139.409, kg, Priority: STAT, Start date: 07/09/18 12:53:00 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, Stop date: 07/09/18 12:53:00 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 Tylenol 2017-08 No 1,000 mg, [facility] 09-08 Route: PO, l 18:20: ONCE, [place] 00 Dosing Weight 140.909, kg, Priority: STAT, Start date: 07/09/18 12:20:00 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, Stop date: 07/09/18 12:20:00 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 Tylenol 2017-08 No 1,000 mg, [facility] 09-08 Route: PO, l 18:20: ONCE, [place] 00 Dosing Weight 140.909, kg, Priority: STAT, Start date: 07/09/18 12:20:00 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, Stop date: 07/09/18 12:20:00 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 Insulin 2017-08 No Notes: [facility] Lispro 09-08 (Same as: l 18:18: Humalog ) [place] 00 Roll in palms of hands gently; Do not shake `vigorousl y. "Single Patient Use Only " WASTE: F/P - Black; E - Municipal Trash Bin Stable for 28 days at room temperatur e. Expires in days from ____Date Calcium 2017-08 No 1,000 mL, [facility] ia Chloride 09-08 Rate: 25 l 0.0014 18:18: ml/hr, [place] MEQ/ML / 00 Infuse Potassium over: 40 Chloride hr, Route: 0.004 IV, Dosing MEQ/ML / Weight Sodium 140.909 Chloride kg, Total 0.103 Volume: MEQ/ML / 1,000, Sodium Start Lactate date: 0.028 07/09/18 MEQ/ML 12:18:00 Injectable 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, Solution Duration: 30 day, Stop date: 08/08/18 12:17:00 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, 2.75, m2 Insulin 2017-08 No Notes: Memoria [...] Lactate date: 0.028 07/09/18 MEQ/ML 12:18:00 Injectable 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, Solution Duration: 30 day, Stop date: 08/08/18 12:17:00 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, 2.75, m2 ceFAZolin + 2017-08 No Notes: David katarzyna sterile 09-08 (Same As: l water 30 mL 12:00: Ancef, Herm faina 00 Kefzol) MEDICATION WASTE Product Size: 1000 mg Product Wasted: ___ mg Lactated 2017-08 No 1,000 mL, David katarzyna Ringers 09-08 Rate: KVO l Injection 12:00: rate, [place] IV 1,000 mL 00 Route: IV, Dosing Weight 140.909 kg, Total Volume: 1,000, Start date: 07/09/18 6:00:00 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, Duration: 30 day, Stop date: 08/08/18 5:59:00 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, 2.75, m2 ceFAZolin + 2017-08 No Notes: [...] Total Volume: 1,000, Start date: 07/09/18 6:00:00 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, Duration: 30 day, Stop date: 08/08/18 5:59:00 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, 2.75, m2 Norvasc 2017-08 Yes See Memoria 09-07 Instructio l 18:43: ns, PO [place] 00 Daily, 0 Refill(s) Norvasc 2017-08 Yes See Memoria 09-07 Instructio l 18:43: ns, PO [place] 00 Daily, 0 Refill(s) Amlodipine 2017-08 Yes See Memoria 09-07 Instructio l 18:42: ns, PO [place] 00 Daily, 0 Refill(s) Amlodipine 2017-08 Yes See Memoria 09-07 Instructio l 18:42: ns, PO [place] 00 Daily, 0 Refill(s) amLODIPine amLODIPine 2017-08 [...] Notes: Memoria 0-05 (Same l 11:34: as:MORPhin [place] 00 e Sulfate) Morphine 2017-08 No Notes: Memoria 0-05 (Same l 11:34: as:MORPhin [place] 00 e Sulfate) Dexamethaso 2017-08 No 8 mg, Memor ia ne 0-05 Route: IM, l 11:01: ONCE, [place] [...] CDT, Stop date: 05/16/18 6:01:00 CDT Dexamethaso 2017- No 8 mg, Memor ia ne 0-05 Route: IM, l 11:01: ONCE, Dosing Weight 144.091, kg, Priority: STAT, Start date: 05/16/18 6:01:00 CDT, Stop date: 05/16/18 6:01:00 CDT Zofran ODT 2017- No 4 mg, Memori a 0-05 Route: [...] 1 tablet Commo n [place] as needed [facility] Losartan Losartan Yes Norah 1 tablet C ommon Potassium-H Potassium-H [place] [facility] Hydrocodone Yes Norah 1 tablet Common -Acetaminop -Acetaminop [place] as needed [facility]3] hen [facility] Adderall XR Adderall XR Yes Norah 1 capsule Common [place] in the [facility] Omeprazole Omeprazole Yes Norah 1 capsule Common [place] 30 minutes [facility] before - [facility] Dicyclomine Dicyclomine Yes Norah 1 tablet Common HCl HCl [place] [facility] Omeprazole Omeprazole No QD Omeprazole 40 MG [...] Source Name Name influenza virus 2022-05-19 Completed [facility] vaccine, inactivated 15:57:00 Influenza, 2022-05-19 Completed [facility] injectable, 00:00:00 quadrivalent (afluria, fluzone) Influenza, 2022-05-19 Completed [facility] injectable, 00:00:00 quadrivalent (afluria, fluzone) Influenza, 2022-05-19 Completed [facility] injectable, 00:00:00 quadrivalent (afluria, fluzone) COVID-19 Pfizer & 2021-05-06 Completed [facility] ealt Over Vaccination 00:00:00 COVID-19 Pfizer & 2021-05-06 [...] Completed [facility] - (Triamcinolone) (Triamcinolone) 11:35:00 [facility] Jaci Beatty 2020-05-23 Completed [facility] - (Triamcinolone) (Triamcinolone) 11:35:00 [facility] Jaci Beatty 2020-05-23 Completed [facility] - (Triamcinolone) (Triamcinolone) 11:35:00 [facility] Jaci Beatty 2020-05-23 Completed [facility] - (Triamcinolone) (Triamcinolone) 11:35:00 [facility] Jaci Beatty 2020-05-23 Completed [facility] - (Triamcinolone) (Triamcinolone) 11:35:00 [facility] Kenalog Kenalog 2020-05-23 Completed [facility] - (Triamcinolone) (Triamcinolone) 11:35:00 [facility] Kenalog Kenalog 2020-05-23 Completed [facility] - (Triamcinolone) (Triamcinolone) 11:35:00 [facility] Bupivicaine [place] Bupivicaine [place] 2019-11-16 Completed [facility] - 11:23:00 [facility] Bupivicaine [place] Bupivicaine [place] 2019-11-16 Completed [facility] - 11:23:00 [facility] Bupivicaine [place] Bupivicaine [place] 2019-11-16 Completed [facility] - 11::00 [facility] Bupivicaine [place] Bupivicaine [place] 2019-11-16 Completed [facility] - 11:23:00 [facility] Bupivicaine [place] Bupivicaine [place] 2019-11-16 Completed [facility] - 11::00 [facility] Bupivicaine [place] Bupivicaine [place] 2019-11-16 Completed [facility] - 11::00 [facility] Bupivicaine [place] Bupivicaine [place] 2019-11-16 Completed [facility] - 11::00 [facility] Kenalog Kenalog 2019-11-16 Completed [facility] - (Triamcinolone) (Triamcinolone) 11:: [facility] Kenalog Kenalog 2019-11-16 Completed [facility] - (Triamcinolone) (Triamcinolone) 11:22:00 [facility] Kenalog Kenalog 2019-11-16 Completed [facility] - (Triamcinolone) (Triamcinolone) 11:22:00 [facility] Kenalog Kenalog 2019-11-16 Completed [facility] - (Triamcinolone) (Triamcinolone) 11:22:00 [facility] Kenalog Kenalog 2019-11-16 Completed [facility] - (Triamcinolone) (Triamcinolone) 11:22:00 [facility] Kenalog Kenalog 2019-11-16 Completed [facility] - (Triamcinolone) (Triamcinolone) 11:22:00 [facility] Kenalog Kenalog 2019-11-16 Completed [facility] - (Triamcinolone) (Triamcinolone) 11:22:00 [facility] Fluzone Quadrivalent 2018-06-03 [facility] [...] 2022-06-22 72 [in_i] [facility] - 11:20:00 [facility] weight 2022-06-22 343 [lb_av] [facility] - 11:20:00 [facility] temperature 2022-06-22 96.5 [degF] [facility] - 11:20:00 [facility] bmi 2022-06-22 46.51 kg/m2 [facility] - 11:20:00 [facility] oximetry 2022-06-22 97 % [facility] - 11:20:00 [facility] respiratory rate 2022-06-22 18 /min [facility] - 11:20:00 [facility] blood pressure 2022-06-22 141 mm[Hg] [facility] - systolic 11:20:00 [facility] blood pressure 2022-06-22 74 mm[Hg] [facility] - diastolic 11:20:00 [facility] Systolic blood 2022-05-16 110 mm[Hg] [facility] pressure 20:28:00 Diastolic blood 2022-05-16 72 mm[Hg] [facility] pressure 20:28:00 Heart rate 2022-05-16 60 /min [facility] 20:28:00 Body temperature 2022-05-16 36.11 Chrissie [facility] 20:17:00 Body height 2022-05-16 190.5 cm [facility] 20:17:00 Body weight 2022-05-16 158.305 kg [facility] 20:17:00 BMI 2022-05-16 43.62 kg/m2 [facility] 20:17:00 height 2021-04-06 72 [in_i] [facility] - 14:30:00 [facility] weight 2021-04-06 319 [lb_av] [facility] - 14:30:00 [facility] temperature 2021-04-06 98 [degF] [facility] - 14:30:00 [facility] bmi 2021-04-06 43.26 kg/m2 [facility] - 14:30:00 [facility] blood pressure 2021-04-06 121 mm[Hg] [facility] - systolic 14:30:00 [facility] blood pressure 2021-04-06 76 mm[Hg] [facility] - diastolic 14:30:00 [facility] height 2020-07-12 72 [in_i] [facility] - 16:30:00 [facility] weight 2020-07-12 318.3 [lb_av] [facility] - 16:30:00 [facility] temperature 2020-07-12 97.5 [degF] [facility] - 16:30:00 [facility] bmi 2020-07-12 43.16 kg/m2 [facility] - 16:30:00 [facility] oximetry 2020-07-12 97 % [facility] - 16:30:00 [facility] respiratory rate 2020-07-12 18 /min [facility] - 16:30:00 [facility] blood pressure 2020-07-12 129 mm[Hg] [facility] - systolic 16:30:00 [facility] blood pressure 2020-07-12 64 mm[Hg] [facility] - diastolic 16:30:00 [facility] height 2020-05-23 72 [in_i] [facility] - 11:20: [facility] weight 2020-05-23 314.4 [lb_av] [facility] - 11:20:00 [facility] temperature 2020-05-23 97.2 [degF] [facility] - 11:20:00 [facility] bmi 2020-05-23 42.64 kg/m2 [facility] - 11:20:00 [facility] oximetry 2020-05-23 98 % [facility] - 11:20:00 [facility] respiratory rate 2020-05-23 18 /min [facility] - 11:20:00 [facility] blood pressure 2020-05-23 140 mm[Hg] [facility] - systolic 11:20:00 [facility] blood pressure 2020-05-23 74 mm[Hg] [facility] - diastolic 11:20:00 [facility] Systolic blood 2023-01-07 167 mm[Hg] [facility] 21[facility]28[facility]57 [facility] Diastolic blood 2023-01-07 79 mm[Hg] [facility] pressure 21:28:57 [facility] Heart rate 2023-01-07 104 /min [facility] 21:28:57 [facility] Body temperature 2023-01-07 35.67 Chrissie [facility] 21:28:57 [facility] Respiratory rate 2023-01-07 16 /min [facility] 21:28:57 [facility] Oxygen saturation 2023-01-07 96 /min [facility] in Arterial blood 21:28:57 [facility] by Pulse oximetry Body height 2023-01-07 190.5 cm [facility] 03:49:11 [facility] Body weight 2023-01-07 162.751 kg [facility] 03:49:11 [facility] BMI 2023-01-07 44.85 kg/m2 [facility] 03:49:11 [facility] Systolic blood 2022-11-14 149 mm[Hg] [facility] pressure 14:13:00 [facility] Diastolic blood 2022-11-14 93 mm[Hg] [facility] pressure 14:13:00 [facility] Heart rate 2022-11-14 73 /min [facility] 14:13:00 [facility] Body temperature 2022-11-[address] [facility] 14:[facility]:00 [facility] Body height 2022-11-[address] [facility] 14:00:00 [facility] Body weight 2022-11-[address] [facility] 14:00:00 [facility] BMI 2022-11-14 48.81 kg/m2 [facility] 14:00:00 [facility] Respitory Rate 2022-05-19 [facility] 14:30:00 Respitory Rate 2022-05-19 [facility] 14:00:00 Systolic (mm Hg) 2022-05-19 [facility] rmann 14:00:00 Diastolic (mm Hg) 2022-05-19 [facility] ermann 14:00:00 Respitory Rate 2022-05-19 [facility] 13:00:00 Systolic (mm Hg) 2022-05-19 [facility] rmann 13:00:00 Diastolic (mm Hg) 2022-05-19 [facility] ermann 13:00:00 Temperature Oral 2022-05-19 98.3 F [facility] rmann (F) 12:36:32 Systolic (mm Hg) 2022-05-19 [facility] rmann 12:00:00 Diastolic (mm Hg) 2022-05-19 [facility] ermann 12:00:00 Temperature Oral 2022-05-19 97.4 F [facility] rmann (F) 08:24:17 Temperature Oral 2022-05-19 98.5 F [facility] rmann (F) 03:59:28 Height 2022-05-17 190.5 cm [facility] 04:38:00 Weight 2022-05-17 [facility] 04:38:00 BMI Calculated 2022-05-17 [facility] 04:38:00 Heart Rate 2022-05-17 [facility] 04:04:00 Height 2022-05-16 190.5 cm [facility] 22:05:00 BMI Calculated 2022-05-16 [facility] [...] n 14:49:51 Temperature Oral 2022-05-12 98.5 F [facility] Harpreet rmann (F) 14:49:13 Respitory Rate 2022-05-12 [facility] 13:00:00 Height 2022-05-12 190.5 cm [facility] 09:38:00 BMI Calculated 2022-05-12 [facility] 09:38:00 Weight 2022-05-12 [facility] 09:38:00 Heart Rate 2022-05-12 [facility] 09:38:00 Temperature Oral 2022-05-12 97.7 F [facility] Harpreet rmann (F) 09:38:00 Heart Rate 2021-10-10 [facility] 14:08:15 Systolic (mm Hg) 2021-10-10 [facility] 14:07:42 Diastolic (mm Hg) 2021-10-10 [facility] 14:07:42 Heart Rate 2021-10-10 [facility] 14:07:42 Temperature Oral 2021-10-10 99.2 F [facility] rmann (F) 14:07:27 Heart Rate 2021-10-10 [...] ermann 05:19:44 Temperature Oral 2021-10-10 98.7 F [facility] Harpreet rmann (F) 05:18:56 Respitory Rate [...] n 09:21:01 Temperature Oral 2021-10-09 98.4 F [facility] rmann (F) 09:20:59 Systolic (mm Hg) 2021-10-09 [facility] 06:55:11 Diastolic (mm Hg) 2021-10-09 [facility] 06:55:11 Heart Rate 2021-10-09 [facility] 06:55:11 Systolic (mm Hg) 2021-10-09 [facility] 06:02:00 Diastolic (mm Hg) 2021-10-09 [facility] 06:02:00 Respitory Rate 2021-10-09 [facility] 06:02:00 Respitory Rate 2021-10-09 [facility] 03:17:00 Height 2021-10-08 190.5 cm [facility] 23:44:00 BMI Calculated 2021-10-08 [facility] 23:44:00 Weight 2021-10-08 [facility] 23:44:00 Temperature Oral 2021-10-08 98.6 F [facility] Harpreet rmann (F) 23:44:00 Heart Rate 2021-10-05 [facility] 13:48:13 Respitory Rate 2021-10-05 [facility] 13:48:13 Systolic (mm Hg) 2021-10-05 [facility] 13:47:41 Diastolic (mm Hg) 2021-10-05 [facility] 13:47:41 Heart Rate 2021-10-05 [facility] 13:47:41 Temperature Oral 2021-10-05 99.2 F [facility] rmann (F) 13:47:17 Heart Rate 2021-10-05 [facility] 09:39:43 Respitory Rate 2021-10-05 [facility] 09:39:43 Systolic (mm Hg) 2021-10-05 [facility] 09:39:35 Diastolic (mm Hg) 2021-10-05 [facility] 09:39:35 Temperature Oral 2021-10-05 98.4 F [facility] rmann (F) 09:38:41 Respitory Rate 2021-10-05 [facility] 06:44:26 Systolic (mm Hg) 2021-10-05 [facility] 06:44:17 Diastolic (mm Hg) 2021-10-05 [facility] ermann 06:44:17 Temperature Oral 2021-10-05 98.7 F [facility] rmann (F) 06:42:51 Height 2021-10-03 190.5 [...] ermann 13:50:00 Temperature Oral 2021-05-11 98.5 F [facility] rmann (F) 13:50:00 Systolic (mm Hg) 2021-05-11 [facility] 12:22:00 Diastolic (mm Hg) 2021-05-11 [facility] ermann 12:22:00 Systolic (mm Hg) 2021-05-11 [facility] 11:21:00 Diastolic (mm Hg) 2021-05-11 [facility] 11:21:00 Respitory Rate 2021-05-11 [facility] 11:21:00 Respitory Rate 2021-05-11 [facility] 10:42:00 Respitory Rate 2021-05-11 [facility] 09:02:00 Temperature Oral 2021-05-11 98.4 F [facility]reet rmann (F) 08:30:00 Heart Rate 2021-05-11 [facility] 06:50:00 Heart Rate 2021-05-11 [facility] 06[facility]18:00 Heart Rate 2021-05-11 [facility] 00:55:00 Temperature Oral 2021-05-11 98.2 F [facility] Harpreet rmann (F) 00:55:00 BP Systolic 2018-10-02 155 mm[Hg] Location: [place]; [facility] 15:26:00 Position: Sitting BP Diastolic 2018-10-02 88 mm[Hg] Location: [place]; [facility] 15:26:00 Position: Sitting Height 2018-10-02 75 [in_us] [facility] 15:26:00 Weight 2018-10-02 302 [lb_av] [facility] 15:26:00 Body Mass Index 2018-10-02 37.75 kg/m2 [facility] Calculated 15:26:00 Temperature 2018-10-02 98 [degF] Method: Oral [facility] 15:26:00 Heart Rate 2018-10-02 63 /min Location: [facility] 15:26:00 Apical; BP Systolic 2018-09-25 154 mm[Hg] Location: [place]; [facility] 10:26:00 Position: Sitting BP Diastolic 2018-09-25 98 mm[Hg] Location: [place]; [facility] 10:26:00 Position: Sitting Heart Rate 2018-09-25 70 /min Quality: Normal [facility] 10:26:00 BP Systolic 2018-09-25 169 mm[Hg] Location: [place]; [facility] 10:25:00 Position: Sitting BP Diastolic 2018-09-25 65 mm[Hg] Location: [place]; [facility] 10:25:00 Position: Sitting Heart Rate 2018-09-25 [...] BP Systolic 2018-06-03 136 mm[Hg] Location: [place]; [facility] 14:09:00 Position: Sitting BP Diastolic 2018-06-03 75 mm[Hg] Location: [place]; [facility] 14:09:00 Position: Sitting Height 2018-06-03 75 [...] 12:29:00 Temperature Oral 2018-05-16 98.4 F [facility] r[facility] (F) 12:29:00 Systolic (mm Hg) 2018-05-16 [facility] 11:50:00 Diastolic (mm Hg) 2018-05-16 [facility] 11:50:00 Heart Rate 2018-05-16 [facility] 11:50:00 Respitory Rate 2018-05-16 [facility] 11:50:00 Temperature Oral 2018-05-16 98.8 F [facility] Harpreet rmann (F) 10:56:00 Weight 2018-05-16 [facility] 10:56:00 Procedures Procedure Date / Time Performing Clinician Source Performed CBC WITH PLATELET AND [facility]23[facility]07 [facility] DIFFERENTIAL COMPREHENSIVE METABOLIC 2023-01-07 09:31:00 [facility] PANEL ESTIMATED GFR 2023-01-07 09:31:00 [facility] BLOOD CULTURE, AEROBIC & 2023-01-07 05:36:00 [facility] ANAEROBIC BLOOD CULTURE, AEROBIC & 2023-01-07 05:34:[address] [facility] [address] HEAD WO CONTRAST 2023-01-07 03:33:37 Karen Mendoza [facility] URINE CULTURE 2023-01-07 01:58:00 Karen Mendoza [facility] URINALYSIS SCREEN AND 2023-01-07 01:58:00 Karen Mendoza [facility] MICROSCOPY, WITH REFLEX TO CULTURE ABO AND RH CONFIRMATION BY 2023-01-07 00:55:00 Karen Mendoza [facility] PROTOCOL CTA ABD/PEL FOR BLEEDING 2023-01-07 00:48:48 Karen Mendoza [facility] CBC WITH PLATELET AND 2023-01-06 23:02:00 Karen Mendoza [facility] DIFFERENTIAL PROTHROMBIN TIME WITH INR 2023-01-06 23:02:00 Karen Mendoza [facility] PARTIAL THROMBOPLASTIN 2023-01-06 23:02:00 Karen Mendoza [facility] TIME (PTT) COMPREHENSIVE METABOLIC 2023-01-06 23:02:00 [facility]EL 2023-01-06 23:02:00 Karen Mendoza [facility] LIPASE LEVEL 2023-01-06 23:02:00 Karen Mendoza [facility] TYPE AND SCREEN 2023-01-06 23:02:00 Karen Mendoza [facility] ESTIMATED GFR 2023-01-06 23:02:00 Karen Mendoza [facility] Injection, epidural, of 2022-05-18 17:43:21 David Cedeño blood or clot patch REFERRAL- REQUEST/RESPONSE 2021-03-30 05:01:00 Doctor Unassigned , [facility] Myringotomy 2020-10-10 00:00:00 [facility] Her jones [U] XRAY KNEE 4 OR MORE 2018-07-24 00:00:00 [facility] VWS RIGHT [id number] Emg/Ncv 2018-06-20 00:00:00 [facility] Sleep Lab - Sleep 2018-06-03 00:00:00 [facility] gracia Study Split Night Ulnar nerve decompression 2017-08-12 00:00:00 [place] h[place] Ulnar nerve decompression 2015-08-12 00:00:00 Me morial [place] Operation [facility] Hemorrhoidectomy [facility] n Extraction of wisdom tooth Memor ial [place] Appendectomy [facility] History of Cubital tunnel [facility] repair History of [facility]rist [facility] Plan of Care Planned Activity Planned Date Details Comments Source Future Scheduled 2023-11-[address] [facility] Test 00:00:00 [facility] (12+) [code = Tobacco Cessation Counseling and Screening (12+)] Future Scheduled 2023-11-[address] [facility] Test 00:00:00 [facility] Screening [facility] (12+) [code = Tobacco Cessation Counseling and Screening (12+)] Future Scheduled 2023-11-[address] [facility] Test 00:00:00 [facility]ing [facility] Screening [facility] ical Center (12+) [code = Tobacco Cessation Counseling and Screening (12+)] Future Scheduled 2023-11-[address] [facility] Test 00:00:00 Counseling and Screening Med ical Center (12+) [code = Tobacco Cessation Counseling and Screening (12+)] Future Scheduled 2023-11-[address] [facility] Test 00:00:00 Counseling and Screening Med ical Center (12+) [code = Tobacco Cessation Counseling and Screening (12+)] Future Scheduled 2023-11-[address] [facility] Test 00:00:00 Counseling and Screening Med ical Center (12+) [code = Tobacco Cessation Counseling and Screening (12+)] Future Scheduled 2023-04-12 Influenza Vaccine (#1) [facility] 00:[facility]00 [code = Influenza Medical Ce nter Vaccine (#1)] Future Scheduled 2023-04-12 Influenza Vaccine (#1[facility] 00:00:00 [code = Influenza Medical Ce nter Vaccine (#1)] Future Scheduled 2023-04-12 Influenza Vaccine (#1) [facility] 00:00:00 [code = Influenza Medical Ce nter Vaccine (#1)] Future Scheduled 2023-03-08 Pneumococcal Vaccine: [facility] Test 14:34:41 Pediatrics (0 to 5 Years) and At-Risk Patients (6 to 64 Years) (1 - PCV) [code = Pneumococcal Vaccine: Pediatrics (0 to 5 Years) and At-Risk Patients (6 to 64 Years) (1 - PCV)] Future Scheduled 2023-03-08 Hepatitis C screening [facility] Test 14:34:41 (procedure) [code = 082190331] Future Scheduled 2023-03-08 COVID-19 VACCINE (3 - [facility] Test 14:34:41 Pfizer series) [code = COVID-19 VACCINE (3 - Pfizer series)] Future Scheduled 2023-03-08 INFLUENZA VACCINE [code [facility] Test 14:34:41 = INFLUENZA VACCINE] Future Scheduled 2023-03-04 Pneumococcal Vaccine: [facility] Test 12:22:41 Pediatrics (0 to 5 Years) and At-Risk Patients (6 to 64 Years) (1 - PCV) [code = Pneumococcal Vaccine: Pediatrics (0 to 5 Years) and At-Risk Patients (6 to 64 Years) (1 - PCV)] Future Scheduled 2023-03-04 Hepatitis C screening [facility] Test 12:22:41 (procedure) [code = 455933799] Future Scheduled 2023-03-04 COVID-19 VACCINE (3 - [facility] Test 12:22:41 Pfizer series) [code = COVID-19 VACCINE (3 - Pfizer series)] Future Scheduled 2023-03-04 INFLUENZA VACCINE [code [facility] Test 12:22:41 = INFLUENZA VACCINE] Future Scheduled 2023-02-11 Pneumococcal Vaccine: [facility] Test 11:22:44 Pediatrics (0 to 5 Years) and At-Risk Patients (6 to 64 Years) (1 - PCV) [code = Pneumococcal Vaccine: Pediatrics (0 to 5 Years) and At-Risk Patients (6 to 64 Years) (1 - PCV)] Future Scheduled 2023-02-11 Hepatitis C screening [facility] Test 11:22:44 (procedure) [code = [id number]] Future Scheduled 2023-02-11 COVID-19 VACCINE (3 - [facility] Test 11:22:44 Pfizer series) [code = COVID-19 VACCINE (3 - Pfizer series)] Future Scheduled 2023-02-11 INFLUENZA VACCINE [code [facility] Test 11:22:44 = INFLUENZA VACCINE] Future Scheduled 2023-01-26 Pneumococcal Vaccine: [facility] Test 16:56:13 Pediatrics (0 to 5 Years) and At-Risk Patients (6 to 64 Years) (1 - PCV) [code = Pneumococcal Vaccine: Pediatrics (0 to 5 Years) and At-Risk Patients (6 to 64 Years) (1 - PCV)] Future Scheduled 2023-01-26 Hepatitis C screening [facility] Test 16:56:13 (procedure) [code = [id number]] Future Scheduled 2023-01-26 COVID-19 VACCINE (3 - [facility] Test 16:56:13 Pfizer series) [code = COVID-19 VACCINE (3 - Pfizer series)] Future Scheduled 2023-01-26 INFLUENZA VACCINE [code [facility] 16:56:13 = INFLUENZA VACCINE] Future Scheduled 2022-12-12 COVID-19 VACCINE (#1) [facility] Test 13:32:14 [code = COVID-19 VACCINE (#1)] Future Scheduled 2022-12-12 INFLUENZA VACCINE [code [facility] 13:32:14 = INFLUENZA VACCINE] Future Scheduled 2022-12-12 COVID-19 VACCINE (#1) [facility] Test 13:32:14 [code = COVID-19 VACCINE (#1)] Future Scheduled 2022-12-12 INFLUENZA VACCINE [code [facility] 13:32:14 = INFLUENZA VACCINE] Future Scheduled 2022-09-18 COVID-19 VACCINE (#1) [facility] Test 11:55:25 [code = COVID-19 VACCINE (#1)] Future Scheduled 2022-09-18 INFLUENZA VACCINE [code [facility] 11:55:25 = INFLUENZA VACCINE] Future Scheduled 2022-09-18 COVID-19 VACCINE (#1) [facility] Test 11:55:25 [code = COVID-19 VACCINE (#1)] Future Scheduled 2022-09-18 INFLUENZA VACCINE [code [facility] 11:55:25 = INFLUENZA VACCINE] Future Scheduled 2022-09-07 COVID-19 VACCINE (#1) [facility] Test 19:13:43 [code = COVID-19 VACCINE (#1)] Future Scheduled 2022-09-07 INFLUENZA VACCINE [code [facility] 19:13:43 = INFLUENZA VACCINE] Future Scheduled 2022-08-[address] [facility] Test 00:00:00 (12+) [code = DEPRESSION Med ical Center SCREENING (12+)] Future Scheduled 2022-08-[address] [facility] Test 00:00:00 (12+) [code = DEPRESSION Med ical Center SCREENING (12+)] Future Scheduled 2022-08-[address] [facility] Test 00:00:00 (12+) [code = DEPRESSION Med ical Center SCREENING (12+)] Future Scheduled 2022-08-[address] [facility] Test 00:00:00 (12+) [code = DEPRESSION Med ical Center SCREENING (12+)] Future Scheduled 2022-08-[address] [facility] Test 00:00:00 (12+) [code = DEPRESSION Med ical Center SCREENING (12+)] Future Scheduled 2022-08-[address] [facility] Test 00:00:00 (12+) [code = DEPRESSION Med ical Center SCREENING (12+)] Future Scheduled 2022-07-28 COVID-19 VACCINE (#1) [facility] Test 16:56:35 [code = COVID-19 VACCINE (#1)] Future Scheduled 2022-07-28 INFLUENZA VACCINE [code [facility] 16:56:35 = INFLUENZA VACCINE] Future Scheduled 2022-07-28 COVID-19 VACCINE (#1) [facility] Test 16:56:35 [code = COVID-19 VACCINE (#1)] Future Scheduled 2022-07-28 INFLUENZA VACCINE [code [facility] 16:56:35 = INFLUENZA VACCINE] Future Scheduled 2022-04-13 HEPATITIS B VACCINES (1 [facility] 21:38:54 of 3 - 3-dose series) [code = HEPATITIS B VACCINES (1 of 3 - 3-dose series)] Future Scheduled 2022-04-13 COVID-19 VACCINE (#1) [facility] Test 21:38:54 [code = COVID-19 VACCINE (#1)] Future Scheduled 2022-04-13 INFLUENZA VACCINE [code [facility] 21:38:54 = INFLUENZA VACCINE] Future Scheduled 2022-04-13 HEPATITIS B VACCINES (1 [facility] 21:38:54 of 3 - 3-dose series) [code = HEPATITIS B VACCINES (1 of 3 - 3-dose series)] Future Scheduled 2022-04-13 COVID-19 VACCINE (#1) [facility] 21:38:54 [code = COVID-19 VACCINE (#1)] Future Scheduled 2022-04-13 INFLUENZA VACCINE [code [facility] 21:38:54 = INFLUENZA VACCINE] Future Scheduled 2022-04-13 HEPATITIS B VACCINES (1 [facility] 21:38:54 of 3 - 3-dose series) [code = HEPATITIS B VACCINES (1 of 3 - 3-dose series)] Future Scheduled 2022-04-13 COVID-19 VACCINE (#1) [facility] Test 21:38:54 [code = COVID-19 VACCINE (#1)] Future Scheduled 2022-04-13 INFLUENZA VACCINE [code [facility] 21:38:54 = INFLUENZA VACCINE] Future Scheduled 2022-04-13 HEPATITIS B VACCINES (1 [facility] 21:38:54 of 3 - 3-dose series) [code = HEPATITIS B VACCINES (1 of 3 - 3-dose series)] Future Scheduled 2022-04-13 COVID-19 VACCINE (#1) [facility] Test 21:38:54 [code = COVID-19 VACCINE (#1)] Future Scheduled 2022-04-13 INFLUENZA VACCINE [code [facility] 21:38:54 = INFLUENZA VACCINE] Future Scheduled 2022-04-13 HEPATITIS B VACCINES (1 [facility] 21:38:54 of 3 - 3-dose series) [code = HEPATITIS B VACCINES (1 of 3 - 3-dose series)] Future Scheduled 2022-04-13 COVID-19 VACCINE (#1) [facility] 21:38:54 [code = COVID-19 VACCINE (#1)] Future Scheduled 2022-04-13 INFLUENZA VACCINE [code [facility] 21:38:54 = INFLUENZA VACCINE] Future Scheduled 2022-04-13 HEPATITIS B VACCINES (1 [facility] 21:38:54 of 3 - 3-dose series) [code = HEPATITIS B VACCINES (1 of 3 - 3-dose series)] Future Scheduled 2022-04-13 COVID-19 VACCINE (#1) [facility] Test 21:38:54 [code = COVID-19 VACCINE (#1)] Future Scheduled 2022-04-13 INFLUENZA VACCINE [code [facility] 21:38:54 = INFLUENZA VACCINE] Future Scheduled 2021-07-01 COVID-19 [...] series)] Diagnostic Test 2018-06-20 Emg/Ncv [code = Emg/Ncv] [facility] 00:00:00 Diagnostic Test 2018-06-20 Emg/Ncv [code = Emg/Ncv] [facility] 00:00:00 Future Scheduled 2015 Lipid panel (procedure) [facility] Test 00:00:00 [code = 88336793] Medical Ce [facility]ter Future Scheduled 2015 Lipid panel (procedure) [facility] Test 00:00:00 [code = 25898715] Medical Ce nter Future Scheduled 2015 Lipid panel (procedure) [facility] Test 00:00:00 [code = 62964150] Medical Ce nter Future Scheduled 2015 Lipid panel (procedure) [facility] Test 00:00:00 [code = 22303802] Medical Ce nter Future Scheduled 2015 Lipid panel (procedure) [facility] Test 00:00:00 [code = 62400016] Medical Ce nter Future Scheduled 2015 Lipid panel (procedure) [facility] Test 00:00:00 [code = 15690829] Medical Ce nter Future Scheduled 1999 DTAP/TDAP/TD VACCINES ([address] [facility] Test 00:00:00 - Tdap) [code = Medical Cent er DTAP/TDAP/TD VACCINES (1 - Tdap)] Future Scheduled 1999 DTAP/TDAP/TD VACCINES ([address] [facility] Test 00:00:00 - Tdap) [code = Medical Cent er DTAP/TDAP/TD VACCINES (1 - Tdap)] Future Scheduled 1999 DTAP/TDAP/TD VACCINES ([address] [facility] Test 00:00:00 - Tdap) [code = Medical Cent er DTAP/TDAP/TD VACCINES (1 - Tdap)] Future Scheduled 1999 DTAP/TDAP/TD VACCINES ([address] [facility] Test 00:00:00 - Tdap) [code = Medical Cent er DTAP/TDAP/TD VACCINES (1 - Tdap)] Future Scheduled 1999 DTAP/TDAP/TD VACCINES ([address] [facility] Test 00:00:00 - Tdap) [code = Medical Cent er DTAP/TDAP/TD VACCINES (1 - Tdap)] Future Scheduled 1999 DTAP/TDAP/TD VACCINES ([address] [facility] Test 00:00:00 - Tdap) [code = Medical Cent er DTAP/TDAP/TD VACCINES (1 - Tdap)] Future Scheduled [...] HEPATITIS C Medical Center SCREENING] Future Scheduled [address] Human immunodeficiency [facility] virus screening [facility] (procedure) [code = 180865920] Future Scheduled [address] Human [address] [facility] 00:00:00 virus screening [facility] (procedure) [code = 617853618] Future Scheduled COVID-19 VACCINE (1) [facility] Test [code = COVID-19 VACCINE (1)] Future Scheduled Hepatitis C screening [facility] Test (procedure) [code = 723653852] Future Scheduled INFLUENZA VACCINE [code [facility] = INFLUENZA VACCINE] Encounters Start End Encounter Admission Attending Care Care Encounter Source Date/Time Date/Time Type Type Clinicians Facility Department ID 2023-02-19 Outpatient [facility] [id number] [place] 08:16:07 [id number] [facility] 2023-02-18 Outpatient [facility] [id number] [place] 07:32:15 [id number] [facility] 2023-02-04 Outpatient [facility] [id number] [place] 16:00:55 [id number] [facility] 2023-01-04 Outpatient [facility] [id number] [place] 10:29:46 [id number] [facility] 2022-12-[address] [facility] [id number] Common 09:37:00 [facility] [address] [facility] 2022-09-27 Outpatient [facility] [id number] [place] 15:49:39 [id number] [facility] 2022-09-[address] [facility] [id number] Common 10:35:01 [facility] [address] [facility] 2022-09-20 Outpatient [facility] [id number] [place] 09:01:19 [id number] [facility] 2022-09-18 Outpatient [facility] [id number] [place] 13:05:14 [id number] [facility] 2022-09-04 Outpatient [facility] [id number] [place] 09:48:26 [id number] [facility] 2022-09-03 Outpatient [facility] [id number] [place] 10:22:47 [id number] [facility] 2022-08-15 Outpatient [facility] [id number] [place] 08:54:00 [id number] [facility] 2022-07-30 Outpatient [facility] [id number] [place] 09:03:26 [id number] [facility] 2022-07-27 Outpatient [facility] [id number] [place] 09:39:00 [id number] [facility] 2022-06-22 Outpatient Vazquez, STLMLC STLMLC [id number] Common 11:03:01 [facility] 2022-06-20 Outpatient [facility] [id number] [place] 15:53:00 [id number] [facility] 2022-06-20 Outpatient Vazquez, STLMLC STLMLC [id number] Common 09:33:01 [facility] 2022-06-19 Outpatient [facility] [id number] [place] 15:00:31 [id number] [facility] 2022-06-12 Outpatient [facility] [id number] [place] 09:35:34 [id number] [facility] 2022-05-25 Outpatient [facility] [id number] [place] 13:39:31 [id number] [facility] 2021-10-25 Outpatient MIGUEL ANGEL, [facility] ANAY 7506 [facility] 11:23:00 OMAHA 2021-09-28 Outpatient DEVON, NOAH [facility] [id number] [place] 16:10:44 [facility] 2021-09-06 Outpatient Vazquez, STLMLC STLMLC [id number] Common 12:12:10 [facility] [address] [facility] 2021-09-06 Outpatient Vazquez, STLMLC STLMLC [id number] Common 12:10:54 [facility] [address] [facility] 2021-09-06 Outpatient Vazquez, STLMLC STLMLC [id number] Common 12:09:52 [facility] [address] [facility] 2021-09-06 Outpatient Vazquez, STLMLC STLMLC [id number] Common 11:54:05 [facility] [address] [facility] 2021-09-06 Out[facility], [facility] [id number] Common 11:06:57 [facility] [address] [facility] 2021-09-06 Outpatient Vazquez, STLMLC [facility] [id number] Common 11:06:47 [facility] [address] [facility] 2021-04-18 Outpatient PATKI, [facility] [id number] [place] 14:45:53 [facility] 2023-04-23 2023-04-23 Outpatient NAM, NANETTE [facility] [id number] [place] 14:00:00 14:00:00 [facility] 2023-03-13 2023-03-13 Outpatient YUKSEL, [facility] [id number] [place] 13:00:00 13:00:00 [facility] 2023-03-07 2023-03-07 Outpatient YUKSEL, [facility] [id number] [place] 14:15:00 14:15:00 [facility] 2023-02-14 2023-02-19 Inpatient YUKSEL, [facility] 7508 [facility] 09:24:00 17:51:00 [facility] 2023-01-10 2023-01-10 Outpatient CORCORAN [facility] [id number] [place] 13:00:00 13:00:00 Karthik WILHELM 2023-01-06 2023-01-07 Emergency Karen Mendoza. 1.2.840.1 [id number] Methodi 17:24:00 18:25:00 Julian Sexton [address]70.1.[address] [facility], [place] 3.430.2.7 Hospita .3.002846 l .8 2023-01-06 2023-01-07 Emergency Karen Mendoza. 1.2.840.1 [id number] Methodi 17:24:00 18:25:00 Julian Sexton 78684.1.[address] [place], [place] 3.430.2.7 Hospita .3.501011 l .8 2023-01-06 2023-01-06 Travel 1.2.840.1 1.2.585.648 [id number] Methodi 00:00:00 00:00:[address] 3.430.2.7 0.2.7.3.698 Ho spita .3.186958 084.8 l .8 2023-01-06 2023-01-06 Travel 1.2.840.1 1.2.296.963 [id number] Methodi 00:00:00 00:00:[address] 3.430.2.7 0.2.7.3.698 Ho spita .3.808048 084.8 l .8 2022-11-14 2022-11-14 [facility] [id number] 14:30:00 15:33:44 Visit [facility] 2022-11-14 2022-11-[address] [facility] [id number] 14:30:00 15:33:44 Visit [facility] 2022-09-28 2022-09-28 Office Alyse [facility] 6400 1.2.840.114 [id number] [place] 15:00:00 16:43:35 Visit Jose Cruzcak [address] 350.1.13.58 Health 9.2.7.2.686 [id number] 5 2022-09-26 2022-09-26 Outpatient ALBERTOREINIERCAROLYN [facility] [id number] [place] 13:15:00 13:15:00 [facility] 2022-09-20 2022-09-21 Outpt Kristinag [facility]NE[facility] [id number] Memoria 19:41:00 05:59:00 Services Outpatient 03 l Tree Cedeño 2022-09-20 2022-09-20 Office EUNICE CULLEN 6400 1.2.840.114 [id number] [place] 08:45:00 08:45:[address] 350.1.13.58 Health 9.2.7.2.686 [id number] 5 2022-08-16 2022-08-16 Outpatient TUCKER, [facility] [id number] [place] 14:30:00 14:30:00 [facility] 2022-08-01 2022-08-01 Outpatient TUCKER, [facility] [id number] [place] 11:00:00 11:00:00 [facility] 2022-07-27 2022-07-27 Office EUNICE Cullen 6400 1.2.840.114 [id number] [place] 08:30:00 09:48:28 Visit Manasa JOYCE 350.1.13.58 Health 9.2.7.2.686 [id number] 5 2022-07-25 2022-07-25 (TEL) STLMLC STLMLC [id number] Co mmon 00:00:00 00:00:00 [facility] 2022-06-22 2022-06-22 (TEL) STLMLC STLMLC [id number] Co mmon 00:00:00 00:00:00 [facility] 2022-06-22 2022-06-22 OFFICE STLMLC STLMLC [id number] Co mmon 00:00:00 00:00:00 VISIT [facility] LEVEL 4 [facility] 2022-06-20 2022-06-20 Outpatient DAY, NOAH [facility] [id number] [place] 14:00:00 14:00:00 [facility] 2022-06-13 2022-06-13 [facility] [id number] [place] 13:15:00 13:15:00 [facility] 2022-06-06 2022-06-06 (TEL) STLMLC STLMLC [id number] Co mmon 00:00:00 00:00:00 [facility] 2022-06-06 2022-06-06 (TEL) STLMLC STLMLC [id number] Co mmon 00:00:00 00:00:00 [facility] 2022-05-16 2022-05-19 [facility] [id number] Memoria 21:39:42 16:40:00 n [facility] 07 [facility] 2022-05-17 2022-05-19 Outpatient E DAY, NOAH [facility] [id number] [facility] 10:13:00 11:40:00 2022-05-16 2022-05-16 Office DAY, NOAH [facility] 6400 1.2.840.114 1 [id number] [place] 15:45:00 15:45:[address] 350.1.13.58 Health 9.2.7.2.686 [id number] 0 2022-05-12 2022-05-13 Emergency [facility] [id number] Memoria 09:35:00 02:21:00 [facility] 74 [facility] 2022-05-12 2022-05-12 Emergency E ROBERTS, [facility] 2274 [facility] 03:16:00 21:21:00 SONIA 2022-03-21 2022-03-21 Outpatient DAY, NOAH [facility] [id number] [place] 15:00:00 15:00:00 Health 2022-03-14 2022-03-14 Telephone Day, Noah [facility] 6400 1.2.840.114 [id number] [place] 00:00:00 00:00:[address] [place] [address] 350.1.13.58 Health 9.2.7.2.686 [id number] 0 2022-03-14 2022-03-14 Telephone Patki, [facility] 6400 1.2.840.114 [id number] [place] 00:00:00 00:00:[address] 350.1.13.58 Health 9.2.7.2.686 [id number] 3 2022-03-14 2022-03-14 Telephone Day, Noah [facility] 6400 1.2.840.114 [id number] [place] 00:00:00 00:00:[address] 350.1.13.58 Health 9.2.7.2.686 [id number] 0 2022-03-13 2022-03-13 Telephone Day, Noah [facility] 6400 1.2.840.114 [id number] [place] 00:00:00 00:00:[address] 350.1.13.58 Health 9.2.7.2.686 [id number] 0 2022-01-01 2022-01-01 Telephone Day, Noah [facility] 6400 1.2.840.114 [id number] [place] 00:00:00 00:00:[address] [place] [address] 350.1.13.58 Health 9.2.7.2.686 [id number] 0 2021-12-28 2021-12-28 Telephone Day, Noah [facility] 6400 1.2.840.114 [id number] [place] 00:00:00 00:00:[address] 350.1.13.58 Health 9.2.7.2.686 [id number] 0 2021-12-06 2021-12-06 Telephone Day, Noah [facility] 6400 1.2.840.114 [id number] [place] 00:00:00 00:00:[address] 350.1.13.58 Health 9.2.7.2.686 [id number] 0 2021-11-27 2021-11-27 Telephone Day, Noah [facility] 6400 1.2.840.114 [id number] [place] 00:00:00 00:00:[address] 350.1.13.58 Health 9.2.7.2.686 [id number] 0 2021-11-01 2021-11-01 Telephone Day, Noah [facility] 6400 1.2.840.114 [id number] [place] 00:00:00 00:00:[address] 350.1.13.58 Health 9.2.7.2.686 [id number] 0 2021-10-30 2021-10-30 Telephone Rae Naranjo UTP 1.2.840 .114 [id number] [place] 00:00:00 00:00:00 MarcellaRae gant NIKOLAI 350.1.13.58 Health MEDICAL 9.2.7.2.686 BUILDING [id number] 1 2021-10-27 2021-10-27 Telephone Day, Noah [facility] 6410 1.2.840.114 [id number] [place] 00:00:00 00:00:[address] [place] [address] 350.1.13.58 Health 9.2.7.2.686 [id number] 8 2021-10-25 2021-10-26 Outpt Diag nullFlavo [facility] [id number] [facility] 18:11:00 04:59:00 Services r Outpatient 01 l [facility] 2021-10-24 2021-10-24 Telephone Layne Sánchez UTP 6400 1.2.840.1 14 [id number] [place] 00:00:00 00:00:[address] 350.1.13.58 Health 9.2.7.2.686 [id number] 3 2021-10-24 2021-10-24 Telephone Day, Noah [facility]TP 6400 1.2.840.114 [id number] [place] 00:00:00 00:00:[address] [place] [address] 350.1.13.58 Health 9.2.7.2.686 [id number] 0 2021-10-20 2021-10-20 Office Miguel Angel, EUNICE 1.2.840.114 [id number] [place] 13:30:00 14:18:52 Visit Geronimo MENCHACA 350.1.13.58 H [facility] 9.2.7.2.686 [facility] [id number] 1 2021-10-18 2021-10-19 Outpt Diag nullFlavo [facility] [id number] [facility] 17:43:00 05:59:00 Services r Outpatient 00 l [facility] [place] 2021-10-18 2021-10-18 Office Day, Noah [facility] 6400 1.2.840.114 1 [id number] [place] 10:00:00 10:15:00 Visit [place] [address] 350.1.13.58 Health 9.2.7.2.686 [id number] 0 2021-10-18 2021-10-18 Telephone Day, Noah [facility] 6400 1.2.840.114 [id number] [place] 00:00:00 00:00:[address] [place] [address] 350.1.13.58 Health 9.2.7.2.686 [id number] 0 2021-10-18 2021-10-18 Telephone Day, Noah [facility] 6400 1.2.840.114 [id number] [place] 00:00:00 00:00:[address] 350.1.13.58 Health 9.2.7.2.686 [id number] 0 2021-10-17 2021-10-17 Telephone Day, Noah [facility] 6400 1.2.840.114 [id number] [place] 00:00:00 00:00:[address] [place] [address] 350.1.13.58 Health 9.2.7.2.686 [id number] 0 2021-10-13 2021-10-13 Telephone Day, Noah [facility] 6400 1.2.840.114 [id number] [place] 00:00:00 00:00:[address] [place] [address] 350.1.13.58 Health 9.2.7.2.686 [id number] 0 2021-10-08 2021-10-10 Inpatient [facility] [id number] Memoria 23:43:00 15:48:[address] 2021-10-08 2021-10-10 Inpatient E DAY, NOAH [facility] 2057 [facility] 19:58:00 09:48:00 2021-10-03 2021-10-05 Inpatient [facility] [id number] Memoria 11:15:00 16:21:00 [facility] 05 [facility] 2021-10-03 2021-10-05 Inpatient DAY, NOAH [facility] 7505 [facility] 05:15:00 10:21:00 2021-10-04 2021-10-04 Telephone Day, Noah [facility] 6400 1.2.840.114 [id number] [place] 00:00:00 00:00:[address] 350.1.13.58 Health 9.2.7.2.686 [id number] 0 2021-09-28 2021-09-28 Telephone Day, Noah [facility] 6400 1.2.840.114 [id number] [place] 00:00:00 00:00:[address] 350.1.13.58 Health 9.2.7.2.686 [id number] 0 2021-09-28 2021-09-28 Telephone Dorothea Delgadillo [facility] 6400 1.2.84 0.114 [id number] [place] 00:00:00 00:00:[address] 350.1.13.58 Health 9.2.7.2.686 [id number] 3 2021-09-22 2021-09-22 Telephone Day, Noah [facility] 6400 1.2.840.114 [id number] [place] 00:00:00 00:00:[address] 350.1.13.58 Health 9.2.7.2.686 [id number] 0 2021-09-20 2021-09-20 Telephone Day, Noah [facility] 6400 1.2.840.114 [id number] [place] 00:00:00 00:00:[address] 350.1.13.58 Health 9.2.7.2.686 [id number] 7 2021-09-18 2021-09-18 Telephone Amelia Cameron [facility] 6400 1.2.840.11 4 [id number] [place] 00:00:00 00:00:[address] 350.1.13.58 Health 9.2.7.2.686 [id number] 5 2021-09-07 2021-09-07 Office EUNICE Kumar 6400 1.2.840.114 [id number] [place] 13:30:00 14:35:[address] 350.1.13.58 Health 9.2.7.2.686 [id number] 3 2021-09-07 2021-09-07 Telephone EUNICE Kumar 6400 1.2.840.114 [id number] [place] 00:00:00 00:00:[address] 350.1.13.58 Health 9.2.7.2.686 [id number] 3 2021-09-05 2021-09-05 Telephone Patkenji, [facility] 6400 1.2.840.114 [id number] [place] 00:00:00 00:00:[address] 350.1.13.58 Health 9.2.7.2.686 [id number] 3 2021-09-03 2021-09-03 Telephone Patkenji, UTP 6400 1.2.840.114 [id number] [place] 00:00:00 00:00:[address] 350.1.13.58 Health 9.2.7.2.686 [id number] 3 2021-08-02 2021-08-02 Telephone Patkenji, [facility]TP 6400 1.2.840.114 [id number] [place] 00:00:00 00:00:[address] 350.1.13.58 Health 9.2.7.2.686 [id number] 3 2021-05-18 2021-05-18 Orders Brii Howard UTP 6400 1.2.840.114 [id number] [place] 00:00:00 00:00:[address] 350.1.13.58 Health 9.2.7.2.686 [id number] 3 2021-05-18 2021-05-18 Orders Stacy UTP 6400 1.2.840.114 [id number] [place] 00:00:00 00:00:[address] 350.1.13.58 Health 9.2.7.2.686 [id number] 3 2021-05-15 2021-05-15 Telephone [place], UTP 6400 1.2.840.114 127 [id number] [place] 00:00:00 00:00:[address] 350.1.13.58 Health 9.2.7.2.686 [id number] 3 2021-05-11 2021-05-11 [facility] [id number] [facility] 00:42:19 14:08:[address] 2021-05-11 2021-05-11 (TEL) STLMLC STLMLC [id number] Co mmon 00:00:00 00:00:00 [facility] 2021-05-09 2021-05-09 Telephone Patki, UTP 6400 1.2.840.114 127 [id number] [place] 00:00:00 00:00:[address] 350.1.13.58 Health 9.2.7.2.686 [id number] 3 2021-05-08 2021-05-08 Telephone Patki, UTP 6400 1.2.840.114 127 [id number] [place] 00:00:00 00:00:[address] 350.1.13.58 Health 9.2.7.2.686 [id number] 3 2021-05-08 2021-05-08 Telephone Patki, UTP 6400 1.2.840.114 127 [id number] [place] 00:00:00 00:00:[address] 350.1.13.58 Health 9.2.7.2.686 [id number] 3 2021-05-08 2021-05-08 Telephone Patki, UTP 6400 1.2.840.114 127 [id number] [place] 00:00:00 00:00:[address] 350.1.13.58 Health 9.2.7.2.686 [id number] 3 2021-05-03 2021-05-03 Office Patki, UTP 6400 1.2.840.114 [id number] [place] 13:38:06 14:42:[address] 350.1.13.58 Health 9.2.7.2.686 [id number] 3 2021-05-03 2021-05-03 Office Patki, UTP 6400 1.2.840.114 [id number] [place] 13:38:06 14:42:[address] 350.1.13.58 Health 9.2.7.2.686 [id number] 3 2021-04-18 2021-04-18 Office EUNICE Kumar 6400 1.2.840.114 [id number] [place] 13:09:45 14:44:[address] 350.1.13.58 Health 9.2.7.2.686 [id number] 3 2021-04-18 2021-04-18 Office EUNICE Kumar 6400 1.2.840.114 [id number] [place] 13:09:45 14:44:[address] 350.1.13.58 Health 9.2.7.2.686 [id number] 3 2021-04-06 2021-04-06 OFFICE STLMLC STLMLC [id number] Co mmon 00:00:00 00:00:00 VISIT EST Spir it PT LEVEL 3 [facility] 2021-04-06 2021-04-06 (TEL) STLMLC STLMLC [id number] Co mmon 00:00:00 00:00:00 [facility] 2021-03-31 2021-03-31 (TEL) STLMLC STLMLC [id number] Co mmon 00:00:00 00:00:00 [facility] 2021-03-30 2021-03-30 Orders Doctor AICHA 1.2.840.114 [id number] 00:00:00 00:00:00 Only Unassigned, ABDULKADIR 350.1.13.10 Kinde [facility] 4.2.7.2.686 [id number] [id number] 2021-03-30 2021-03-30 Orders Doctor AICHA 1.2.840.114 [id number] [facility] 00:00:00 00:00:00 Only Unassigned, ABDULKADIR 350.1.13.10 ity [facility] [id number] Norberto as [id number] [place] [address] Branch 2021-03-21 2021-03-21 Ancillary 1, Gal UNIVERSIT [id number] 14:21:34 15:15:15 Visit Audio Sound Y [id number] Suite NATIONAL [id number] BANK [id number] BLDG. 141 2021-03-21 2021-03-21 Outpatient R RENZO [facility] [id number] Univers 13:45:00 13:45:00 FABY katarzyna [facility] 2021-01-17 2021-01-17 Emergency X BARBARA, [facility] ERT [id number] Univers 19:28:00 19:28:00 LAURENCE [facility] 2020-11-21 2020-11-21 Emergency X [facility] ERT [id number] Univers 15:51:00 15:51:00 itFormerly [facility] 2020-07-20 2020-07-20 (TEL) STLMLC STLMLC [id number] Co mmon 00:00:00 00:00:00 Spirit [facility] 2020-07-12 2020-07-12 OFFICE STLMLC STLMLC [id number] Co mmon 00:00:00 00:00:00 VISIT EST Spir it PT LEVEL 3 [facility] 2020-05-23 2020-05-23 OFFICE STLMLC STLMLC [id number] Co mmon 00:00:00 00:00:00 VISIT EST Spir it PT LEVEL 3 [facility] 2020-02-24 2020-02-24 [facility] [id number] Common 14:42:00 14:42:00 t [employer] [address] [facility] 2020-02-22 2020-02-22 [facility] [id number] Common 13:51:00 13:51:[address] [facility] 2019-12-10 2019-12-10 [facility] [id number] Common 15:39:00 15:39:[address] [facility] 2019-12-08 2019-12-08 [facility] [id number] Common 13:40:00 13:40:[address] [facility] 2019-12-07 2019-12-07 [facility] [id number] Common 12:05:00 12:05:00 t [facility] [address] Family - [facility] Family Medicine [facility] 2019-11-16 2019-11-16 [facility] [id number] Common 11:00:00 11:00:00 t Bone Bone and Spiri t and Joint [facility] - [facility] 2019-10-21 2019-10-21 Emergency X Blaire PADRON [facility] ERT [id number] Univers 11:24:16 14:51:00 ity of [facility] 2019-09-29 2019-09-29 [facility] [id number] Common 09:21:00 09:21:00 t Bone Bone and Spiri t and Joint Joint - [facility] 2019-09-21 2019-09-21 [facility] [id number] Common 14:00:00 14:00:00 t Bone Bone and Spiri t and Joint Joint - [facility] 2019-03-13 2019-03-13 Appointritu [facility] [id number] [place] 09:00:00 09:00:00 t; Lesa RODRIGUEZ Ph savannah Roberto M.D. 2018-10-02 2018-10-02 AppointEUNICE Ibrahim [facility] [id number] [place] 15:00:00 15:00:00 t; Asher JONES i, M.D. ans POURAN, M.D. 2018-09-25 2018-09-25 Appointmen EUNICE CEJA [facility] [id number] [place] 10:30:00 10:30:00 t; BRANT CEJA NP Health and Valery GUO NP Wellness [facility] 2018-09-22 2018-09-22 AppointEUNICE Ibrahim [facility] [id number] [place] 15:30:00 15:30:00 t; Asher JONES i, M.D. ans POURAN, M.D. 2018-08-22 2018-08-22 Appointmen EUNICE MUNOZ [facility] [id number] [place] 09:30:00 09:30:00 t; Lesa BRYANT Ph savannah Rios M.D. 2018-07-29 2018-07-29 [facility] [id number] [place] 14:30:00 14:30:00 t; Lesa BRYANT Ph savannah Rios M.D. 2018-07-25 2018-07-25 [facility] [id number] [place] 10:30:00 10:30:00 t; Lesa BRITT [employer] [facility] Lesa BRITT 2018-07-22 2018-07-22 [facility] [id number] [place] 11:15:00 11:15:00 t; Lesa BRYANT [facility] Valery MUNOZ, Orthopedics savannah BRYANT M.D. 2018-07-15 2018-07-15 [facility] [id number] [place] 10:30:00 10:30:00 t; Lesa BRYANT [facility] Valery MUNOZ, Orthopedics savannah BRYANT M.D. 2018-07-09 2018-07-10 [facility] [id number] Memoria 18:05:00 00:00:00 Surgery r [place] 03 l [place] 2018-07-09 2018-07-09 [facility] [id number] [place] 13:00:00 13:00:00 t; Lesa BRYANT Ph savannah Rios M.D. 2018-06-30 2018-06-30 [facility] [id number] [place] 10:15:00 10:15:00 t; Lesa BRYANT [facility] Physicsp MUNOZ, Orthopedics savannah BRYANT M.D. 2018-06-24 2018-06-24 Outpatient [facility] [id number] Memoria 00:15:00 05:59:00 r [place] 02 l [place] 2018-06-20 2018-06-20 [facility] [id number] [place] 13:40:00 13:40:00 t; SHANE MONROE [facility] P leisa ROTH, Orthopedics bernice MONROE NP 2018-06-19 2018-06-19 App[facility]men [facility] [id number] [place] 08:15:00 08:15:00 t; GEOVANNA FOLEY D.O. Physici KERRY, ans D.O. 2018-06-17 2018-06-17 [facility] [id number] [place] 15:45:00 15:45:00 t; Lesa BRYANT [facility] Valery MUNOZ Orthopedics [facility] Lesa BRYANT 2018-06-03 2018-06-03 [facility] [id number] [place] 13:45:00 13:45:00 t; GEOVANNA FOLEY D.O. [facility] savannah Vora D.O. 2018-05-16 2018-05-16 [facility] [id number] [facility] 10:52:00 13:34:00 r [place] 01 l [place] Kelly nn Results Test Description Test Time Test Comments Results Result Comments Source Urine culture 2023-01-07 02:15:00 Test Item Value Reference Range Interpretation Comme nts Urine culture (test code = 8515741) SEE COMMENT Bacteriuria screen negative. [facility] [id number] 02:15:00 Test Item Value Reference Range Interpretation Comments Urine culture (test SEE COMMENT Bacteriu katarzyna screen code = 8277435) negative. [facility] [id number] 02:15:00 Test Item Value Reference Range Interpretation Comments Urine culture (test SEE COMMENT Bacteriu katarzyna screen code = 5735631) negative. [facility] [id number] 02:15:00 Test Item Value Reference Range Interpretation Comments Urine culture (test SEE COMMENT Bacteriu katarzyna screen code = 1929408) negative. [id number] 21:10:35 Test Item Value Reference Range Interpretation [...] mastoideum, similar to prior CT temporal bone. [facility] AnyaAndres AND [id number] 06:16:00 Test Item Value Reference Range Interpretation Comments UA Color (test code = Yellow *NA*(05/19/22 UA Color) 1:16 AM) [facility] AnyaAndres AND [id number] 06:16:00 Test Item Value Reference Range Interpretation Comments UA Turbidity (test code = Clear (05/19/22 1:16 UA Turbidity) AM) [facility] AnyaAndres [place] [id number] 06:16:00 Test Item Value Reference Range Interpretation Comments UA Spec Grav (test code = UA Spec 1.010 1 Grav) [facility] AND [id number] 06:16:00 Test Item Value Reference Range Interpretation Comments UA pH (test code = UA pH) 6.0 1 5.0-8.0 [facility] AND [id number] 06:16:00 Test Item Value Reference Range Interpretation Comments UA Protein (test code = UA Negative mg/dL Protein) [facility] AND [id number] 06:16:00 Test Item Value Reference Range Interpretation Comments UA Glucose (test code = UA Negative mg/dL Glucose) [facility] AND [id number] 06:16:00 Test Item Value Reference Range Interpretation Comments UA Ketones (test code = UA Negative mg/dL Ketones) [facility] AND [id number] 06:16:00 Test Item Value Reference Range Interpretation Comments UA Bili (test code = Negative *NA*(05/19/22 UA Bili) 1:16 AM) [facility] AND [id number] 06:16:00 Test Item Value Reference Range Interpretation Comments UA Blood (test code = Negative (05/19/22 1:16 UA Blood) AM) [facility] AND [id number] 06:16:00 Test Item Value Reference Range Interpretation Comments UA Urobilinogen (test code = UA 0.2 0.1-1.0 Urobilinogen) [facility] AND [id number] 06:16:00 Test Item Value Reference Range Interpretation Comments UA Nitrite (test code Negative (05/19/22 1:16 = UA Nitrite) AM) [facility] AND [id number] 06:16:00 Test Item Value Reference Range Interpretation Comments UA Leuk Est (test Negative (05/19/22 1:16 code = UA Leuk Est) AM) [facility] AND [id number] 06:16:00 Test Item Value Reference Range Interpretation Comments UA Sq Epi (test code = UA Sq Epi) Rare /LPF [facility] AND [id number] 06:16:00 Test Item Value Reference Range Interpretation Comments UA WBC (test code = no gt See_Comment [Automa leydi message] The UA WBC) system which ge nerated this result transmit leydi reference range : <=5. The reference range was not used to interpr et this result as krishna l/abnormal. [facility] [id number] 06:16:00 Test Item Value Reference Range Interpretation Comments UA RBC (test code = 1 See_Comment [Automa leydi message] The UA RBC) system which ge nerated this result transmit leydi reference range : <=2. The reference range was not used to interpr et this result as krishna l/abnormal. [facility] HermannCARDIAC [id number] 03:27:00 Test Item Value Reference Range Interpretation Comments HS Troponin I Baseline (test code = HS 48 Troponin I Baseline) [facility]CARD[facility] [id number] 03:18:00 Test Item Value Reference Range Interpretation Comments HS Troponin I (test code = HS Troponin 59 I) [facility]CHEM [id number] 03:18:00 Test Item Value Reference Range Interpretation Comments Phosphorus (test code = Phosphorus) 2.7 2.5-4.5 [facility] servtagannCHEM [id number] 03:18:00 Test Item Value Reference Range Interpretation Comments Magnesium Lvl (test code = Magnesium 2.2 1.8-2.4 Lvl) [facility]annPARATHYROID [id number] 03:18:00 Test Item Value Reference Range Interpretation Comments Ca Ion WB (test code = Ca Ion WB) 1.07 1.05-1.25 [facility]annPARATHYROID [id number] 03:18:00 Test Item Value Reference Range Interpretation Comments Ca Ion at pH 7.4 WB (test code = Ca Ion 1.09 1.05-1.25 at pH 7.4 WB) [facility] [id number] 01:30:00 Test Item Value Reference Range Interpretation Comments HS Troponin I 1 Hr (test code = HS 41 Troponin I 1 Hr) [facility] [id number] 01:30:00 Test Item Value Reference Range Interpretation Comments HS Troponin I 0 to 1 xxxxxxx (05/18/22 8:30 Hour Delta (test code = PM) HS Troponin I 0 to 1 Hour Delta) [facility] [employer] [id number] 01:30:00 Test Item Value Reference Range Interpretation Comments Glucose Lvl (test code = Glucose Lvl) 107 70-99 [place] [address]-10-08 01:30:00 Test Item Value Reference Range Interpretation Comments BUN (test code = BUN) 18 7-22 [place] [address]-10-08 01:30:00 Test Item Value Reference Range Interpretation Comments Creatinine Lvl (test code = Creatinine 1.37 0.50-1.40 Lvl) [place] [address]-10-08 01:30:00 Test Item Value Reference Range Interpretation Comments Sodium Lvl (test code = Sodium Lvl) 137 135-145 [place] [address]-10-08 01:30:00 Test Item Value Reference Range Interpretation Comments Potassium Lvl (test code = Potassium 3.8 3.5-5.1 Lvl) [place] [address]-10-08 01:30:00 Test Item Value Reference Range Interpretation Comments Chloride Lvl (test code = Chloride Lvl) 107 95-109 [place] [address]-10-08 01:30:00 Test Item Value Reference Range Interpretation Comments CO2 (test code = CO2) 25 24-32 [place] [address]-10-08 01:30:00 Test Item Value Reference Range Interpretation Comments Calcium Lvl (test code = Calcium Lvl) 9.7 8.5-10.5 [place] [address]-10-08 01:30:00 Test Item Value Reference Range Interpretation Comments Total Protein (test code = Total 7.6 6.4-8.4 Protein) [place] [address]-10-08 01:30:00 Test Item Value Reference Range Interpretation Comments Albumin Lvl (test code = Albumin Lvl) 3.8 3.5-5.0 [place] [address]-10-08 01:30:00 Test Item Value Reference Range Interpretation Comments ALT (test code = ALT) 38 See_Comment [Auto mated message] The system which ge nerated this result transmit leydi reference range : <=65. The reference range was not used to interpr et this result as krishna l/abnormal. [place] [address]-10-08 01:30:00 Test Item Value Reference Range Interpretation Comments AST (test code = AST) 15 See_Comment [Auto mated message] The system which ge nerated this result transmit leydi reference range : <=37. The reference range was not used to interpr et this result as krishna l/abnormal. [facility] [id number] 01:30:00 Test Item Value Reference Range Interpretation Comments Alk Phos (test code = Alk Phos) 119 39-136 [facility] [id number] 01:30:00 Test Item Value Reference Range Interpretation Comments Bili Total (test code = Bili Total) 0.6 0.2-1.3 [place] 158962-10-08 01:30:00 Test Item Value Reference Range Interpretation Comments AGAP (test code = AGAP) 8.8 10.0-20.0 [facility] [id number] 01:30:00 Test Item Value Reference Range Interpretation Comments B/C Ratio (test code = B/C Ratio) 13 1 6-25 [facility] [id number] 01:30:00 Test Item Value Reference Range Interpretation Comments Globulin (test code = Globulin) 3.8 2.7-4.2 [facility] [id number] 01:30:00 Test Item Value Reference Range Interpretation Comments A/G Ratio (test code = A/G Ratio) 1.0 1 0.7-1.6 [facility] [id number] 01:30:00 Test Item Value Reference Range Interpretation Comments eGFR (test code = eGFR) 66 [facility]2022-10-08 01:30:00 Test Item Value Reference Range Interpretation Comments Lipase Lvl (test code = Lipase Lvl) 75 73-393 [facility] [id number] 20:19:00 Test Item Value Reference Range Interpretation Comments HS Troponin I (test code = HS Troponin 7 I) [facility] [id number] 20:19:00 Test Item Value Reference Range Interpretation Comments Glucose Lvl (test code = Glucose Lvl) 101 70-99 [facility] [id number] 20:19:00 Test Item Value Reference Range Interpretation Comments BUN (test code = BUN) 17 7-22 [facility]2022-10-07 20:19:00 Test Item Value Reference Range Interpretation Comments Creatinine Lvl (test code = Creatinine 1.36 0.50-1.40 Lvl) [facility]2022-10-07 20:19:00 Test Item Value Reference Range Interpretation Comments Sodium Lvl (test code = Sodium Lvl) 139 135-145 [place] 158962-10-07 20:19:00 Test Item Value Reference Range Interpretation Comments Potassium Lvl (test code = Potassium 3.6 3.5-5.1 Lvl) [place] 158962-10-07 20:19:00 Test Item Value Reference Range Interpretation Comments Chloride Lvl (test code = Chloride Lvl) 106 95-109 [place] 158962-10-07 20:19:00 Test Item Value Reference Range Interpretation Comments CO2 (test code = CO2) 25 24-32 [place] 158962-10-07 20:19:00 Test Item Value Reference Range Interpretation Comments Calcium Lvl (test code = Calcium Lvl) 9.9 8.5-10.5 [place] 158962-10-07 20:19:00 Test Item Value Reference Range Interpretation Comments AGAP (test code = AGAP) 11.6 10.0-20.0 [place] 158962-10-07 20:19:00 Test Item Value Reference Range Interpretation Comments eGFR (test code = eGFR) 67 [facility]2022-10-07 20:19:00 Test Item Value Reference Range Interpretation Comments Lactic Acid Lvl (test code = Lactic 1.1 0.5-2.2 Acid Lvl) [place] 273712-10-07 20:19:00 Test Item Value Reference Range Interpretation Comments WBC (test code = WBC) 8.3 3.7-10.4 [place] [address]-10-07 20:19:00 Test Item Value Reference Range Interpretation Comments RBC (test code = RBC) 5.68 4.70-6.10 [place] [address]-10-07 20:19:00 Test Item Value Reference Range Interpretation Comments Hgb (test code = Hgb) 15.6 14.0-18.0 [place] 273712-10-07 20:19:00 Test Item Value Reference Range Interpretation Comments Hct (test code = Hct) 48.0 42.0-54.0 [place] 273712-10-07 20:19:00 Test Item Value Reference Range Interpretation Comments MCV (test code = MCV) 84.5 80.0-94.0 [id number] 20:19:00 Test Item Value Reference Range Interpretation Comments MCH (test code = MCH) 27.4 pg 27.0-31.0 [id number] 20:19:00 Test Item Value Reference Range Interpretation Comments MCHC (test code = MCHC) 32.4 32.0-36.0 [facility] Cl[id number] 20:19:00 Test Item Value Reference Range Interpretation Comments RDW (test code = RDW) 14.8 11.5-14.5 [facility] Clini[id number] 20:19:00 Test Item Value Reference Range Interpretation Comments Platelet (test code = Platelet) 207 133-450 [facility]i[id number] 20:19:00 Test Item Value Reference Range Interpretation Comments MPV (test code = MPV) 9.5 7.4-10.4 [facility] Cl[id number] 20:19:00 Test Item Value Reference Range Interpretation Comments PT (test code = PT) 12.0 s 12.0-14.7 [facility]icsCdhqeqdECJLZIJLYT2383-90-23 20:19:00 Test Item Value Reference Range Interpretation Comments INR (test code = INR) 0.89 1 0.85-1.17 [facility]icsKtclravCIOVPTKWBK3138-14-13 20:19:00 Test Item Value Reference Range Interpretation Comments PTT (test code = PTT) 27.2 s 22.9-35.8 [facility] ClinicsVczkxmgZSESOSTUMQ0033-09-14 20:19:00 Test Item Value Reference Range Interpretation Comments Segs (test code = Segs) 51.5 45.0-75.0 [place] 273712-10-07 20:19:00 Test Item Value Reference Range Interpretation Comments Lymphocytes (test code = Lymphocytes) 38.1 20.0-40.0 [facility] ClinicsHyacxuxAFKZDDZBYG6543-31-42 20:19:00 Test Item Value Reference Range Interpretation Comments Monocytes (test code = Monocytes) 6.0 2.0-12.0 [facility] ClinicsZfysbpzDIJTBHAJYJ7795-76-16 20:19:00 Test Item Value Reference Range Interpretation Comments Eosinophils (test code = 3.9 See_Comment [A utomated message] The Eosinophils) system which ge nerated this result tra nsmitted reference range : <=4.0. The reference r caleb was not used to int erpret this result as normal/abnormal . [facility]icsOzomwfpGDRYNIAECA9314-20-34 20:19:00 Test Item Value Reference Range Interpretation Comments Basophils (test code = 0.5 See_Comment [Aut omated message] The Basophils) system which ge nerated this result tra nsmitted reference range : <=1.0. The reference r caleb was not used to int erpret this result as normal/abnormal . [facility] ClinicsCygwpziEIRPIKKSXR4969-07-21 20:19:00 Test Item Value Reference Range Interpretation Comments Neutrophils # (test code = Neutrophils 4.3 1.5-8.1 #) [facility]icsIkqqugzMRNTKHMRKS7668-01-32 20:19:00 Test Item Value Reference Range Interpretation Comments Lymphocytes # (test code = Lymphocytes 3.2 1.0-5.5 #) [facility] ClinicsHupvvblAKDYMEPBQM3848-76-17 20:19:00 Test Item Value Reference Range Interpretation Comments Monocytes # (test code 0.5 See_Comment [Aut omated message] The = Monocytes #) system which generated this result tra nsmitted reference range : <=0.8. The reference r caleb was not used to int erpret this result as normal/abnormal . [facility] ClinicsIhskpliKSPVFYJHDI9869-37-79 20:19:00 Test Item Value Reference Range Interpretation Comments Eosinophils # (test code 0.3 See_Comment [A utomated message] The = Eosinophils #) system whic h generated this result tra nsmitted reference range : <=0.5. The reference r caleb was not used to int erpret this result as normal/abnormal . [facility] [employer] [id number] 05:26:00 Test Item Value Reference Range Interpretation Comments ABO/Rh (test code = ABO/Rh) O POS [facility] [employer] [id number] 05:26:00 Test Item Value Reference Range Interpretation Comments Antibody Scrn (test Negative (05/17/22 code = Antibody Scrn) 12:26 AM) [facility] [employer] [id number] 05:26:00 Test Item Value Reference Range Interpretation Comments Glucose Lvl (test code = Glucose Lvl) 94 70-99 [facility] [employer]2022-10-06 05:26:00 Test Item Value Reference Range Interpretation Comments BUN (test code = BUN) 17 7-22 [place] 158962-10-06 05:26:00 Test Item Value Reference Range Interpretation Comments Creatinine Lvl (test code = Creatinine 1.32 0.50-1.40 Lvl) [place] 158962-10-06 05:26:00 Test Item Value Reference Range Interpretation Comments Sodium Lvl (test code = Sodium Lvl) 140 135-145 [place] 158962-10-06 05:26:00 Test Item Value Reference Range Interpretation Comments Potassium Lvl (test code = Potassium 3.9 3.5-5.1 Lvl) [place] 158962-10-06 05:26:00 Test Item Value Reference Range Interpretation Comments Chloride Lvl (test code = Chloride Lvl) 108 95-109 [place] 158962-10-06 05:26:00 Test Item Value Reference Range Interpretation Comments CO2 (test code = CO2) 28 24-32 [place] 158962-10-06 05:26:00 Test Item Value Reference Range Interpretation Comments Calcium Lvl (test code = Calcium Lvl) 9.3 8.5-10.5 [place] 158962-10-06 05:26:00 Test Item Value Reference Range Interpretation Comments AGAP (test code = AGAP) 7.9 10.0-20.0 [place] 158962-10-06 05:26:00 Test Item Value Reference Range Interpretation Comments eGFR (test code = eGFR) 69 [place] 273712-10-06 05:26:00 Test Item Value Reference Range Interpretation Comments Segs (test code = Segs) 46.4 45.0-75.0 [place] 273712-10-06 05:26:00 Test Item Value Reference Range Interpretation Comments Lymphocytes (test code = Lymphocytes) 43.4 20.0-40.0 [place] 273712-10-06 05:26:00 Test Item Value Reference Range Interpretation Comments Monocytes (test code = Monocytes) 7.2 2.0-12.0 [place] 273712-10-06 05:26:00 Test Item Value Reference Range Interpretation Comments Eosinophils (test code = 2.1 See_Comment [A utomated message] The Eosinophils) system which ge nerated this result tra nsmitted reference range : <=4.0. The reference r caleb was not used to int erpret this result as normal/abnormal . [facility] ClinicsOiflthnGMSVAHMZHK2775-26-25 05:26:00 Test Item Value Reference Range Interpretation Comments Basophils (test code = 0.9 See_Comment [Aut omated message] The Basophils) system which ge nerated this result tra nsmitted reference range : <=1.0. The reference r caleb was not used to int erpret this result as normal/abnormal . [facility] Cl[id number] 05:26:00 Test Item Value Reference Range Interpretation Comments Neutrophils # (test code = Neutrophils 3.9 1.5-8.1 #) [facility] ClinicsEaokgflXFTSTSCIJI6273-11-25 05:26:00 Test Item Value Reference Range Interpretation Comments Lymphocytes # (test code = Lymphocytes 3.7 1.0-5.5 #) [place] 273712-10-06 05:26:00 Test Item Value Reference Range Interpretation Comments Monocytes # (test code 0.6 See_Comment [Aut omated message] The = Monocytes #) system which generated this result tra nsmitted reference range : <=0.8. The reference r caleb was not used to int erpret this result as normal/abnormal . [facility]icsIiipfnfGKDTCGNPFU4229-54-02 05:26:00 Test Item Value Reference Range Interpretation Comments Eosinophils # (test code 0.2 See_Comment [A utomated message] The = Eosinophils #) system whic h generated this result tra nsmitted reference range : <=0.5. The reference r caleb was not used to int erpret this result as normal/abnormal . [place] 273712-10-06 05:26:00 Test Item Value Reference Range Interpretation Comments Basophils # (test code 0.1 See_Comment [Aut omated message] The = Basophils #) system which generated this result tra nsmitted reference range : <=0.2. The reference r caleb was not used to int erpret this result as normal/abnormal . [facility]icsNbnnhxdNEOJSFWLVC4330-95-25 05:26:00 Test Item Value Reference Range Interpretation Comments WBC (test code = WBC) 8.4 3.7-10.4 [place] 273712-10-06 05:26:00 Test Item Value Reference Range Interpretation Comments RBC (test code = RBC) 4.95 4.70-6.10 [place] 273712-10-06 05:26:00 Test Item Value Reference Range Interpretation Comments Hgb (test code = Hgb) 13.7 14.0-18.0 [place] 273712-10-06 05:26:00 Test Item Value Reference Range Interpretation Comments Hct (test code = Hct) 41.5 42.0-54.0 [place] 273712-10-06 05:26:00 Test Item Value Reference Range Interpretation Comments MCV (test code = MCV) 83.7 80.0-94.0 [place] 273712-10-06 05:26:00 Test Item Value Reference Range Interpretation Comments MCH (test code = MCH) 27.6 pg 27.0-31.0 [place] 273712-10-06 05:26:00 Test Item Value Reference Range Interpretation Comments MCHC (test code = MCHC) 33.0 32.0-36.0 [place] 273712-10-06 05:26:00 Test Item Value Reference Range Interpretation Comments RDW (test code = RDW) 14.6 11.5-14.5 [place] 273712-10-06 05:26:00 Test Item Value Reference Range Interpretation Comments Platelet (test code = Platelet) 187 133-450 [facility]icsRblftdiDOBPVOFDKI6585-36-37 05:26:00 Test Item Value Reference Range Interpretation Comments MPV (test code = MPV) 9.7 7.4-10.4 [place] 273712-10-06 05:26:00 Test Item Value Reference Range Interpretation Comments PTT (test code = PTT) 25.7 s 22.9-35.8 [place] [address]-10-06 05:26:00 Test Item Value Reference Range Interpretation Comments PT (test code = PT) 11.9 s 12.0-14.7 [place] [address]-10-06 05:26:00 Test Item Value Reference Range Interpretation Comments INR (test code = INR) 0.88 1 0.85-1.17 [place] 273712-10-06 05:26:00 Test Item Value Reference Range Interpretation Comments TEG Interp (test Thromboelastograph results code = TEG show shortened value of R. Interp) This finding is suggestive of enzymatic hypercoagulation. CPT:13688 [facility]icsApuhxctZIWYGINZVN4995-49-30 05:26:00 Test Item Value Reference Range Interpretation Comments R-time (test code = R-time) 4.5 min 5.0-10.0 [place] 273712-10-06 05:26:00 Test Item Value Reference Range Interpretation Comments K-time (test code = K-time) 1.2 min 1.0-3.0 [facility]icsPxgrhkwXRHHZIHRCY6677-82-57 05:26:00 Test Item Value Reference Range Interpretation Comments Angle (test code = Angle) 71.2 degrees 53.0-72.0 [facility]icsOxmbwlkJVUIVUVABD5231-79-55 05:26:00 Test Item Value Reference Range Interpretation Comments Max Amp (test code = Max Amp) 61.8 mm 50.0-70.0 [place] 273712-10-06 05:26:00 Test Item Value Reference Range Interpretation Comments G-value (test code = G-value) 8.1 4.5-11.0 [facility]icsDlvqxezYIPDIPDPCH8442-91-64 05:26:00 Test Item Value Reference Range Interpretation Comments Ly30 (test code = 0.3 See_Comment [Automate d message] The Ly30) system which ge nerated this result transmit leydi reference range : <=7.5. The reference range was not used to interpr et this result as krishna l/abnormal. [facility]icsXzknfvlDVDCGLXAUS0358-36-00 05:26:00 Test Item Value Reference Range Interpretation Comments Coag Index (test code 1.8 1 See_Comment [Auto mated message] The = Coag Index) system which g enerated this result transmit leydi reference range : <=3.0. The reference range was not used to interpr et this result as krishna l/abnormal. [place] 273712-10-06 05:26:00 Test Item Value Reference Range Interpretation Comments TEG Data (test code = See Note (05/17/22 12:26 TEG Data) AM) [facility]TeoahkqPUKAUQIQDJ5994-35-15 03:56:00 Test Item Value Reference Range Interpretation Comments Coronavirus (COVID-19) Not Detected (05/16/22 LIZBETH (test code = 10:56 PM) Coronavirus (COVID-19) LIZBETH) [facility]icsPbjghqlOISFRBANZH4092-14-68 23:51:55 Test Item Value Reference Range Interpretation Comments WBC X 10x3 (test code = WBC X 10x3) 9.1 3.7-10.4 [facility]icsLecvqyjVXVYETOYLK7007-59-08 23:51:55 Test Item Value Reference Range Interpretation Comments RBC X 10x6 (test code = RBC X 10x6) 4.96 4.70-6.10 [place] 273712-10-05 23:51:55 Test Item Value Reference Range Interpretation Comments Hgb (test code = Hgb) 13.7 14.0-18.0 [place] 273712-10-05 23:51:55 Test Item Value Reference Range Interpretation Comments Hct (test code = Hct) 42.3 42.0-54.0 [place] 273712-10-05 23:51:55 Test Item Value Reference Range Interpretation Comments MCV (test code = MCV) 85.3 80.0-94.0 [facility]icsZljrgxaSIMXRQNQND8294-17-69 23:51:55 Test Item Value Reference Range Interpretation Comments MCH (test code = MCH) 27.6 pg 27.0-31.0 [facility]icsJjledmgAPFSMJZKZA7093-14-70 23:51:55 Test Item Value Reference Range Interpretation Comments MCHC (test code = MCHC) 32.4 32.0-36.0 [place] 273712-10-05 23:51:55 Test Item Value Reference Range Interpretation Comments RDW (test code = RDW) 14.7 11.5-14.5 [place] 273712-10-05 23:51:55 Test Item Value Reference Range Interpretation Comments Platelet (test code = Platelet) 183 133-450 [facility]icsFxfgqizGWBBKUNAHD1403-63-91 23:51:55 Test Item Value Reference Range Interpretation Comments MPV (test code = MPV) 9.2 7.4-10.4 [place] 273712-10-05 23:51:55 Test Item Value Reference Range Interpretation Comments Segs (test code = Segs) 56.1 45.0-75.0 [place] 273712-10-05 23:51:55 Test Item Value Reference Range Interpretation Comments Lymphocytes (test code = Lymphocytes) 35.0 20.0-40.0 [facility]icsKkrdcaiRGQJJORWDR7415-34-70 23:51:55 Test Item Value Reference Range Interpretation Comments Monocytes (test code = Monocytes) 6.5 2.0-12.0 [facility]icsFcchqdqXMITWZANTU2699-52-45 23:51:55 Test Item Value Reference Range Interpretation Comments Eosinophils (test code = 1.8 See_Comment [A utomated message] The Eosinophils) system which ge nerated this result tra nsmitted reference range : <=4.0. The reference r caleb was not used to int erpret this result as normal/abnormal . [facility]icsByrjjwgEDHSIBTERX1325-03-67 23:51:55 Test Item Value Reference Range Interpretation Comments Basophils (test code = 0.6 See_Comment [Aut omated message] The Basophils) system which ge nerated this result tra nsmitted reference range : <=1.0. The reference r caleb was not used to int erpret this result as normal/abnormal . [facility]icsGpoupllPDPKBNHAFP6055-62-18 23:51:55 Test Item Value Reference Range Interpretation Comments Neutrophils # (test code = Neutrophils 5.1 1.5-8.1 #) [facility]icsThaeevuDPOLUUQHSV6709-31-37 23:51:55 Test Item Value Reference Range Interpretation Comments Lymphocytes # (test code = Lymphocytes 3.2 1.0-5.5 #) [facility]icsSugqfpzXCCDWGNTXZ0548-01-97 23:51:55 Test Item Value Reference Range Interpretation Comments Monocytes # (test code 0.6 See_Comment [Aut omated message] The = Monocytes #) system which generated this result tra nsmitted reference range : <=0.8. The reference r caleb was not used to int erpret this result as normal/abnormal . [facility]icsEgpkgtvBVDISCNJRJ8465-31-74 23:51:55 Test Item Value Reference Range Interpretation Comments Eosinophils # (test code 0.2 See_Comment [A utomated message] The = Eosinophils #) system whic h generated this result tra nsmitted reference range : <=0.5. The reference r caleb was not used to int erpret this result as normal/abnormal . [facility]ennialBACTERIAL - [id number] 17:30:00 Test Item Value Reference Range Interpretation Comments Source Strep (test code Cerebral Spinal Fluid = Source Strep) [facility]ennialBACTERIAL - [id number] 17:30:00 Test Item Value Reference Range Interpretation Comments Strep pneumoniae Ag Negative (05/12/22 (test code = Strep 12:30 PM) pneumoniae Ag) [facility] [id number] 17:30:00 Test Item Value Reference Range Interpretation Comments Tube Num CSF (test code = Tube Num CSF) 1 1 [facility]2022-10-01 17:30:00 Test Item Value Reference Range Interpretation Comments Color CSF (test code Colorless (05/12/22 12:30 = Color CSF) PM) [facility]2022-10-01 17:30:00 Test Item Value Reference Range Interpretation Comments Clarity CSF (test code = Clear (05/12/22 12:30 Clarity CSF) PM) [facility]2022-10-01 17:30:00 Test Item Value Reference Range Interpretation Comments Supernat CSF (test Colorless (05/12/22 code = Supernat CSF) 12:30 PM) [facility]2022-10-01 17:30:00 Test Item Value Reference Range Interpretation Comments Nucleated Cells CSF 4 See_Comment [Automa leydi message] The (test code = Nucleated syste m which generated Cells CSF) this result tra nsmitted reference range : <=53. The reference r caleb was not used to int erpret this result as normal/abnormal . [facility]2022-10-01 17:30:00 Test Item Value Reference Range Interpretation Comments RBC CSF (test code = 1 See_Comment [Autom ated message] The RBC CSF) system which ge nerated this result transmit leydi reference range : <=03. The reference range was not used to interpr et this result as krishna l/abnormal. [facility]2022-10-01 17:30:00 Test Item Value Reference Range Interpretation Comments Comment CSF (test Differential not code = Comment CSF) performed on WBC count of less than 5. [facility]2022-10-01 17:30:00 Test Item Value Reference Range Interpretation Comments Glucose CSF (test code = Glucose CSF) 71 45-80 [facility]2022-10-01 17:30:00 Test Item Value Reference Range Interpretation Comments Protein CSF (test code = Protein CSF) 195 15-45 [facility]ennialG[facility] Stain Kgbolg8907-23-79 17:30:00 Test Item Value Reference Range Interpretation Comments Gram Stain Report Gram Stain Performed By: (test code = Gram [facility] Stain Report) [facility] w/Gram [id number] 17:30:00 Test Item Value Reference Range Interpretation Comments Culture: CSF w/Gram 48 Hour Report - No Stain (test code = Growth, Holding Culture: CSF w/Gram Stain) [facility] [id number] 10:41:00 Test Item Value Reference Range Interpretation Comments Glucose Lvl (test code = Glucose Lvl) 149 70-99 [facility] [id number] 10:41:00 Test Item Value Reference Range Interpretation Comments BUN (test code = BUN) 12 7-22 [facility] [id number] 10:41:00 Test Item Value Reference Range Interpretation Comments Creatinine Lvl (test code = Creatinine 1.37 0.50-1.40 Lvl) [facility] [id number] 10:41:00 Test Item Value Reference Range Interpretation Comments Sodium Lvl (test code = Sodium Lvl) 142 135-145 [facility] [id number] 10:41:00 Test Item Value Reference Range Interpretation Comments Potassium Lvl (test code = Potassium 3.9 3.5-5.1 Lvl) [facility] [id number] 10:41:00 Test Item Value Reference Range Interpretation Comments Chloride Lvl (test code = Chloride Lvl) 110 95-109 [facility] [id number] 10:41:00 Test Item Value Reference Range Interpretation Comments CO2 (test code = CO2) 26 24-32 [facility] [id number] 10:41:00 Test Item Value Reference Range Interpretation Comments Calcium Lvl (test code = Calcium Lvl) 9.3 8.5-10.5 [facility] [id number] 10:41:00 Test Item Value Reference Range Interpretation Comments AGAP (test code = AGAP) 9.9 10.0-20.0 [facility] [id number] 10:41:00 Test Item Value Reference Range Interpretation Comments eGFR (test code = eGFR) 66 [place] 158962-10-01 10:41:00 Test Item Value Reference Range Interpretation Comments Total Protein (test code = Total 7.2 6.4-8.4 Protein) [place] [address]-10-01 10:41:00 Test Item Value Reference Range Interpretation Comments Albumin Lvl (test code = Albumin Lvl) 3.5 3.5-5.0 [place] 158962-10-01 10:41:00 Test Item Value Reference Range Interpretation Comments Globulin (test code = Globulin) 3.7 2.7-4.2 [place] [address]-10-01 10:41:00 Test Item Value Reference Range Interpretation Comments A/G Ratio (test code = A/G Ratio) 0.9 1 0.7-1.6 [place] [address]-10-01 10:41:00 Test Item Value Reference Range Interpretation Comments ALANINE AMINOTRANSFERASE 32 See_Comment [A utomated message] (test code = ALANINE The sys tem which AMINOTRANSFERASE) generated this result transmitted ref erence range: <=65. Th e reference range was not used to int erpret this result as normal/abnormal . [place] 158962-10-01 10:41:00 Test Item Value Reference Range Interpretation Comments AST (test code = AST) 14 See_Comment [Auto mated message] The system which ge nerated this result transmit leydi reference range : <=37. The reference range was not used to interpr et this result as krishna l/abnormal. [place] 158962-10-01 10:41:00 Test Item Value Reference Range Interpretation Comments Alk Phos (test code = Alk Phos) 110 39-136 [place] [address]-10-01 10:41:00 Test Item Value Reference Range Interpretation Comments Bili Total (test code = Bili Total) 0.3 0.2-1.3 [place] [address]-10-01 10:41:00 Test Item Value Reference Range Interpretation Comments Bili Direct (test code no gt See_Comment [Aut omated message] The = Bili Direct) system which generated this result tra nsmitted reference range : <=0.3. The reference r caleb was not used to int erpret this result as krishna l/abnormal. [facility] 10:41:00 Test Item Value Reference Range Interpretation Comments Bili Indirect Unable to See_Comment [Automated (test code = Bili Calculate message] T he system Indirect) which generated this result transmitted reference range : <=1.0. The reference range was not used to interpret this result as normal/abnormal . [place] 273712-10-01 10:41:00 Test Item Value Reference Range Interpretation Comments WBC X 10x3 (test code = WBC X 10x3) 13.2 3.7-10.4 [facility]icsHfmnbknZDSTTRKJNW2749-89-76 10:41:00 Test Item Value Reference Range Interpretation Comments RBC X 10x6 (test code = RBC X 10x6) 4.65 4.70-6.10 [place] 273712-10-01 10:41:00 Test Item Value Reference Range Interpretation Comments Hgb (test code = Hgb) 12.7 14.0-18.0 [place] [address]-10-01 10:41:00 Test Item Value Reference Range Interpretation Comments Hct (test code = Hct) 39.8 42.0-54.0 [place] 273712-10-01 10:41:00 Test Item Value Reference Range Interpretation Comments MCV (test code = MCV) 85.5 80.0-94.0 [place] 273712-10-01 10:41:00 Test Item Value Reference Range Interpretation Comments MCH (test code = MCH) 27.4 pg 27.0-31.0 [facility]icsLgssnrkBUXADLKQUD5017-37-83 10:41:00 Test Item Value Reference Range Interpretation Comments MCHC (test code = MCHC) 32.0 32.0-36.0 [place] 273712-10-01 10:41:00 Test Item Value Reference Range Interpretation Comments RDW (test code = RDW) 14.6 11.5-14.5 [place] [address]-10-01 10:41:00 Test Item Value Reference Range Interpretation Comments Platelet (test code = Platelet) 217 133-450 [facility]icsRtgxzmlPZZQTCPWKG5316-35-74 10:41:00 Test Item Value Reference Range Interpretation Comments MPV (test code = MPV) 9.4 7.4-10.4 [place] 273712-10-01 10:41:00 Test Item Value Reference Range Interpretation Comments PT (test code = PT) 12.4 s 12.0-14.7 [place] 273712-10-01 10:41:00 Test Item Value Reference Range Interpretation Comments INR (test code = INR) 0.93 1 0.85-1.17 [place] [address]-10-01 10:41:00 Test Item Value Reference Range Interpretation Comments PTT (test code = PTT) 27.5 s 22.9-35.8 [place] 273712-10-01 10:41:00 Test Item Value Reference Range Interpretation Comments Segs (test code = Segs) 80.2 45.0-75.0 [place] [address]-10-01 10:41:00 Test Item Value Reference Range Interpretation Comments Lymphocytes (test code = Lymphocytes) 14.3 20.0-40.0 [place] [address]-10-01 10:41:00 Test Item Value Reference Range Interpretation Comments Monocytes (test code = Monocytes) 4.8 2.0-12.0 [place] 273712-10-01 10:41:00 Test Item Value Reference Range Interpretation Comments Eosinophils (test code = 0.4 See_Comment [A utomated message] The Eosinophils) system which ge nerated this result tra nsmitted reference range : <=4.0. The reference r caleb was not used to int erpret this result as normal/abnormal . [facility]icsPxtluyiKJXGXEFSUN2850-57-52 10:41:00 Test Item Value Reference Range Interpretation Comments Basophils (test code = 0.3 See_Comment [Aut omated message] The Basophils) system which ge nerated this result tra nsmitted reference range : <=1.0. The reference r caleb was not used to int erpret this result as normal/abnormal . [place] 273712-10-01 10:41:00 Test Item Value Reference Range Interpretation Comments Neutrophils # (test code = Neutrophils 10.6 1.5-8.1 #) [place] 273712-10-01 10:41:00 Test Item Value Reference Range Interpretation Comments Lymphocytes # (test code = Lymphocytes 1.9 1.0-5.5 #) [place] 273712-10-01 10:41:00 Test Item Value Reference Range Interpretation Comments Monocytes # (test code 0.6 See_Comment [Aut omated message] The = Monocytes #) system which generated this result tra nsmitted reference range : <=0.8. The reference r caleb was not used to int erpret this result as normal/abnormal . [place] 273712-10-01 10:41:00 Test Item Value Reference Range Interpretation Comments Eosinophils # (test code 0.1 See_Comment [A utomated message] The = Eosinophils #) system [facility] generated this result tra nsmitted reference range : <=0.5. The reference r caleb was not used to int erpret this result as normal/abnormal . [place] [address]-10-01 10:41:00 Test Item Value Reference Range Interpretation Comments Hep C Ab (test code = Hep C Ab) NON-REACTIVE [place] 555182-10-01 10:41:00 Test Item Value Reference Range Interpretation Comments Hep Signal to Cut-Off (test code = Hep 0.07 1 Signal to Cut-Off) [place] [address]-10-01 10:41:00 Test Item Value Reference Range Interpretation Comments [facility] HIV 4th GEN (test Negative *NA*(05/12/22 code = [facility] HIV 4th 5:41 AM) GEN) [place] 273712-02-28 21:33:00 Test Item Value Reference Range Interpretation Comments Neutrophils # (test code = Neutrophils 4.4 1.5-8.1 #) [place] 273712-02-28 21:33:00 Test Item Value Reference Range Interpretation Comments Lymphocytes # (test code = Lymphocytes 1.1 1.0-5.5 #) [place] 273712-02-28 21:33:00 Test Item Value Reference Range Interpretation Comments Monocytes # (test code 0.2 See_Comment [Aut omated message] The = Monocytes #) system which generated this result tra nsmitted reference range : <=0.8. The reference r caleb was not used to int erpret this result as normal/abnormal . [place] 273712-02-28 21:33:00 Test Item Value Reference Range Interpretation Comments Eosinophils # (test code 0.2 See_Comment [A utomated message] The = Eosinophils #) system [facility] [employer] generated this result tra nsmitted reference range : <=0.5. The reference r caleb was not used to int erpret this result as normal/abnormal . [place] 158962-02-28 21:33:00 Test Item Value Reference Range Interpretation Comments Glucose Lvl (test code = Glucose Lvl) 114 70-99 [place] 158962-02-28 21:33:00 Test Item Value Reference Range Interpretation Comments BUN (test code = BUN) 14 7-22 [place] 158962-02-28 21:33:00 Test Item Value Reference Range Interpretation Comments Creatinine Lvl (test code = Creatinine 1.36 0.50-1.40 Lvl) [place] 158962-02-28 21:33:00 Test Item Value Reference Range Interpretation Comments Sodium Lvl (test code = Sodium Lvl) 139 135-145 [place] 158962-02-28 21:33:00 Test Item Value Reference Range Interpretation Comments Potassium Lvl (test code = Potassium 4.6 3.5-5.1 Lvl) [place] 158962-02-28 21:33:00 Test Item Value Reference Range Interpretation Comments Chloride Lvl (test code = Chloride Lvl) 104 95-109 [place] 158962-02-28 21:33:00 Test Item Value Reference Range Interpretation Comments CO2 (test code = CO2) 29 24-32 [place] 158962-02-28 21:33:00 Test Item Value Reference Range Interpretation Comments Calcium Lvl (test code = Calcium Lvl) 9.3 8.5-10.5 [place] 158962-02-28 21:33:00 Test Item Value Reference Range Interpretation Comments AGAP (test code = AGAP) 10.6 10.0-20.0 [place] 158962-02-28 21:33:00 Test Item Value Reference Range Interpretation Comments eGFR (test code = eGFR) 64 [place] 273712-02-28 21:33:00 Test Item Value Reference Range Interpretation Comments WBC (test code = WBC) 5.9 3.7-10.4 [place] [address]-02-28 21:33:00 Test Item Value Reference Range Interpretation Comments RBC (test code = RBC) 4.85 4.70-6.10 [place] 273712-02-28 21:33:00 Test Item Value Reference Range Interpretation Comments Hgb (test code = Hgb) 13.7 14.0-18.0 [facility]icsXwnnkmeXHEQLZVIGK4629-61-79 21:33:00 Test Item Value Reference Range Interpretation Comments Hct (test code = Hct) 41.5 42.0-54.0 [facility]icsRjhijwnDELWQZPVDL6098-03-70 21:33:00 Test Item Value Reference Range Interpretation Comments MCV (test code = MCV) 85.4 80.0-94.0 [facility]icsAiouhjjBMYVDGMJYW6673-74-83 21:33:00 Test Item Value Reference Range Interpretation Comments MCH (test code = MCH) 28.2 pg 27.0-31.0 [facility]icsOdpqamuZFJREXMUKW3198-51-71 21:33:00 Test Item Value Reference Range Interpretation Comments MCHC (test code = MCHC) 33.0 32.0-36.0 [facility]icsXpkgproLPPFMBTJWD5723-47-44 21:33:00 Test Item Value Reference Range Interpretation Comments RDW (test code = RDW) 14.0 11.5-14.5 [facility]icsGygezjzXUODGUKWZJ5443-40-62 21:33:00 Test Item Value Reference Range Interpretation Comments Platelet (test code = Platelet) 186 133-450 [facility] ClinicsUcfacqsZFLRTVANQM6439-85-04 21:33:00 Test Item Value Reference Range Interpretation Comments MPV (test code = MPV) 9.1 7.4-10.4 [place] 273712-02-28 21:33:00 Test Item Value Reference Range Interpretation Comments PT (test code = PT) 12.4 s 12.0-14.7 [place] 273712-02-28 21:33:00 Test Item Value Reference Range Interpretation Comments INR (test code = INR) 0.93 1 0.85-1.17 [facility]icsYthfmioDYFEQQYUWS5658-73-16 21:33:00 Test Item Value Reference Range Interpretation Comments PTT (test code = PTT) 27.8 s 22.9-35.8 [place] 273712-02-28 21:33:00 Test Item Value Reference Range Interpretation Comments Segs (test code = Segs) 73.9 45.0-75.0 [facility] ClinicsLzjomkiELFXPNJKQB5661-48-02 21:33:00 Test Item Value Reference Range Interpretation Comments Lymphocytes (test code = Lymphocytes) 18.2 20.0-40.0 [place] 273712-02-28 21:33:00 Test Item Value Reference Range Interpretation Comments Monocytes (test code = Monocytes) 3.4 2.0-12.0 [place] 273712-02-28 21:33:00 Test Item Value Reference Range Interpretation Comments Eosinophils (test code = 4.2 See_Comment [A utomated message] The Eosinophils) system which ge nerated this result tra nsmitted reference range : <=4.0. The reference r caleb was not used to int erpret this result as normal/abnormal . [place] 273712-02-28 21:33:00 Test Item Value Reference Range Interpretation Comments Basophils (test code = 0.3 See_Comment [Aut omated message] The Basophils) system which ge nerated this result tra nsmitted reference range : <=1.0. The reference r caleb was not used to int erpret this result as normal/abnormal . [place] 273712-02-28 21:33:00 Test Item Value Reference Range Interpretation Comments Neutrophils # (test code = Neutrophils 4.4 1.5-8.1 #) [place] 273712-02-28 21:33:00 Test Item Value Reference Range Interpretation Comments Lymphocytes # (test code = Lymphocytes 1.1 1.0-5.5 #) [place] [address]-02-28 21:33:00 Test Item Value Reference Range Interpretation Comments Monocytes # (test code 0.2 See_Comment [Aut omated message] The = Monocytes #) system which generated this result tra nsmitted reference range : <=0.8. The reference r caleb was not used to int erpret this result as normal/abnormal . [place] 273712-02-28 21:33:00 Test Item Value Reference Range Interpretation Comments Eosinophils # (test code 0.2 See_Comment [A utomated message] The = Eosinophils #) system whic h generated this result tra nsmitted reference range : <=0.5. The reference r caleb was not used to int erpret this result as normal/abnormal . [facility]2022-02-28 21:33:00 Test Item Value Reference Range Interpretation Comments Glucose Lvl (test code = Glucose Lvl) 114 70-99 [place] 158962-02-28 21:33:00 Test Item Value Reference Range Interpretation Comments BUN (test code = BUN) 14 7-22 [place] 158962-02-28 21:33:00 Test Item Value Reference Range Interpretation Comments Creatinine Lvl (test code = Creatinine 1.36 0.50-1.40 Lvl) [place] 158962-02-28 21:33:00 Test Item Value Reference Range Interpretation Comments Sodium Lvl (test code = Sodium Lvl) 139 135-145 [place] 158962-02-28 21:33:00 Test Item Value Reference Range Interpretation Comments Potassium Lvl (test code = Potassium 4.6 3.5-5.1 Lvl) [place] 158962-02-28 21:33:00 Test Item Value Reference Range Interpretation Comments Chloride Lvl (test code = Chloride Lvl) 104 95-109 [place] 158962-02-28 21:33:00 Test Item Value Reference Range Interpretation Comments CO2 (test code = CO2) 29 24-32 [place] 158962-02-28 21:33:00 Test Item Value Reference Range Interpretation Comments Calcium Lvl (test code = Calcium Lvl) 9.3 8.5-10.5 [place] 158962-02-28 21:33:00 Test Item Value Reference Range Interpretation Comments AGAP (test code = AGAP) 10.6 10.0-20.0 [place] 158962-02-28 21:33:00 Test Item Value Reference Range Interpretation Comments eGFR (test code = eGFR) 64 [place] 273712-02-28 21:33:00 Test Item Value Reference Range Interpretation Comments WBC (test code = WBC) 5.9 3.7-10.4 [place] [address]-02-28 21:33:00 Test Item Value Reference Range Interpretation Comments RBC (test code = RBC) 4.85 4.70-6.10 [place] [address]-02-28 21:33:00 Test Item Value Reference Range Interpretation Comments Hgb (test code = Hgb) 13.7 14.0-18.0 [place] [address]-02-28 21:33:00 Test Item Value Reference Range Interpretation Comments Hct (test code = Hct) 41.5 42.0-54.0 [place] [address]-02-28 21:33:00 Test Item Value Reference Range Interpretation Comments MCV (test code = MCV) 85.4 80.0-94.0 [place] 273712-02-28 21:33:00 Test Item Value Reference Range Interpretation Comments MCH (test code = MCH) 28.2 pg 27.0-31.0 [place] 273712-02-28 21:33:00 Test Item Value Reference Range Interpretation Comments MCHC (test code = MCHC) 33.0 32.0-36.0 [place] 273712-02-28 21:33:00 Test Item Value Reference Range Interpretation Comments RDW (test code = RDW) 14.0 11.5-14.5 [place] [address]-02-28 21:33:00 Test Item Value Reference Range Interpretation Comments Platelet (test code = Platelet) 186 133-450 [place] 273712-02-28 21:33:00 Test Item Value Reference Range Interpretation Comments MPV (test code = MPV) 9.1 7.4-10.4 [place] 273712-02-28 21:33:00 Test Item Value Reference Range Interpretation Comments PT (test code = PT) 12.4 s 12.0-14.7 [place] 273712-02-28 21:33:00 Test Item Value Reference Range Interpretation Comments INR (test code = INR) 0.93 1 0.85-1.17 [place] 273712-02-28 21:33:00 Test Item Value Reference Range Interpretation Comments PTT (test code = PTT) 27.8 s 22.9-35.8 [place] [address]-02-28 21:33:00 Test Item Value Reference Range Interpretation Comments Segs (test code = Segs) 73.9 45.0-75.0 [place] [address]-02-28 21:33:00 Test Item Value Reference Range Interpretation Comments Lymphocytes (test code = Lymphocytes) 18.2 20.0-40.0 [place] 273712-02-28 21:33:00 Test Item Value Reference Range Interpretation Comments Monocytes (test code = Monocytes) 3.4 2.0-12.0 [facility]icsNuduvfnSUXDIAPPLM6952-96-66 21:33:00 Test Item Value Reference Range Interpretation Comments Eosinophils (test code = 4.2 See_Comment [A utomated message] The Eosinophils) system which ge nerated this result tra nsmitted reference range : <=4.0. The reference r caleb was not used to int erpret this result as normal/abnormal . [facility]icsLhriiujGNMXIESQUR3782-31-21 21:33:00 Test Item Value Reference Range Interpretation Comments Basophils (test code = 0.3 See_Comment [Aut omated message] The Basophils) system which ge nerated this result tra nsmitted reference range : <=1.0. The reference r caleb was not used to int erpret this result as normal/abnormal . [facility] [id number] 20:31:00 Test Item Value Reference Range Interpretation Comments Glucose CSF (test code = Glucose CSF) 77 45-80 [facility] [id number] 20:31:00 Test Item Value Reference Range Interpretation Comments Protein CSF (test code = Protein CSF) 33 15-45 [facility] [id number] 20:31:00 Test Item Value Reference Range Interpretation Comments Tube Num CSF (test xxxxxxx (10/09/21 2:31 code = Tube Num CSF) PM) [place] 233642-02-28 20:31:00 Test Item Value Reference Range Interpretation Comments Color CSF (test code Colorless (10/09/21 2:31 = Color CSF) PM) [place] 233642-02-28 20:31:00 Test Item Value Reference Range Interpretation Comments Clarity CSF (test code = Clear (10/09/21 2:31 Clarity CSF) PM) [facility] [id number] 20:31:00 Test Item Value Reference Range Interpretation Comments Supernat CSF (test Colorless (10/09/21 2:31 code = Supernat CSF) PM) [facility] [id number] 20:31:00 Test Item Value Reference Range Interpretation Comments Nucleated Cells CSF 9 See_Comment [Automa leydi message] The (test code = Nucleated syste m which generated Cells CSF) this result tra nsmitted reference range : <=53. The reference r caleb was not used to int erpret this result as normal/abnormal . [facility]ennialSprayCoolFYSBZH6759-59-04 20:31:00 Test Item Value Reference Range Interpretation Comments RBC CSF (test code = 280 See_Comment [Autom ated message] The RBC CSF) system which ge nerated this result transmit leydi reference range : <=03. The reference range was not used to interpr et this result as krishna l/abnormal. [facility]2022-02-28 20:31:00 Test Item Value Reference Range Interpretation Comments Neutrophils CSF (test 64 See_Comment [Auto mated message] The code = Neutrophils CSF) syst em which generated this result tra nsmitted reference range : <=6. The reference r caleb was not used to int erpret this result as normal/abnormal . [facility] [id number] 20:31:00 Test Item Value Reference Range Interpretation Comments Lymph CSF (test code = Lymph CSF) 30 40-80 [facility]2022-02-28 20:31:00 Test Item Value Reference Range Interpretation Comments Monocyte CSF (test code = Monocyte CSF) 6 15-45 [facility]ennialCulture: Rubvafqbf1031-82-06 20:31:00 Test Item Value Reference Range Interpretation Comments Culture: Anaerobic No Anaerobes Isolated (test code = Culture: After 3 Days Anaerobic) [facility] CentennialGram Stain Wbhggt1950-31-03 20:31:00 Test Item Value Reference Range Interpretation Comments Gram Stain Report Few Wbc'S; No Organisms (test code = Gram Seen Stain Report) [facility]ennialCulture: CSF w/Gram [id number] 20:31:00 Test Item Value Reference Range Interpretation Comments Culture: CSF w/Gram 72 Hour Report - No Stain (test code = Growth, Holding Culture: CSF w/Gram Stain) [facility]2022-02-28 20:31:00 Test Item Value Reference Range Interpretation Comments Glucose CSF (test code = Glucose CSF) 77 45-80 [facility] [id number] 20:31:00 Test Item Value Reference Range Interpretation Comments Protein CSF (test code = Protein CSF) 33 15-45 [facility]2022-02-28 20:31:00 Test Item Value Reference Range Interpretation Comments Tube Num CSF (test xxxxxxx (10/09/21 2:31 code = Tube Num CSF) PM) [facility] [id number] 20:31:00 Test Item Value Reference Range Interpretation Comments Color CSF (test code Colorless (10/09/21 2:31 = Color CSF) PM) [facility]2022-02-28 20:31:00 Test Item Value Reference Range Interpretation Comments Clarity CSF (test code = Clear (10/09/21 2:31 Clarity CSF) PM) [facility]2022-02-28 20:31:00 Test Item Value Reference Range Interpretation Comments Supernat CSF (test Colorless (10/09/21 2:31 code = Supernat CSF) PM) [facility]2022-02-28 20:31:00 Test Item Value Reference Range Interpretation Comments Nucleated Cells CSF 9 See_Comment [Automa leydi message] The (test code = Nucleated syste m which generated Cells CSF) this result tra nsmitted reference range : <=53. The reference r caleb was not used to int erpret this result as normal/abnormal . [facility]2022-02-28 20:31:00 Test Item Value Reference Range Interpretation Comments RBC CSF (test code = 280 See_Comment [Autom ated message] The RBC CSF) system which ge nerated this result transmit leydi reference range : <=03. The reference range was not used to interpr et this result as krishna l/abnormal. [facility]2022-02-28 20:31:00 Test Item Value Reference Range Interpretation Comments Neutrophils CSF (test 64 See_Comment [Auto mated message] The code = Neutrophils CSF) syst em which generated this result tra nsmitted reference range : <=6. The reference r caleb was not used to int erpret this result as normal/abnormal . [facility]2022-02-28 20:31:00 Test Item Value Reference Range Interpretation Comments Lymph CSF (test code = Lymph CSF) 30 40-80 [facility] [id number] 20:31:00 Test Item Value Reference Range Interpretation Comments Monocyte CSF (test code = Monocyte CSF) 6 15-45 [facility]ennial[facility]: Vkxnkmeci5336-21-24 20:31:00 Test Item Value Reference Range Interpretation Comments Culture: Anaerobic No Anaerobes Isolated (test code = Culture: After 3 Days Anaerobic) [facility]ennialGram Stain [id number] 20:31:00 Test Item Value Reference Range Interpretation Comments Gram Stain Report Few Wbc'S; No Organisms (test code = Gram Seen Stain Report) [facility]ennial[facility]: CSF w/Gram [id number] 20:31:00 Test Item Value Reference Range Interpretation Comments Culture: CSF w/Gram 72 Hour Report - No Stain (test code = Growth, Holding Culture: CSF w/Gram Stain) [facility]2022-02-28 08:57:00 Test Item Value Reference Range Interpretation Comments Glucose Lvl (test code = Glucose Lvl) 109 70-99 [place] 158962-02-28 08:57:00 Test Item Value Reference Range Interpretation Comments BUN (test code = BUN) 17 7-22 [place] 158962-02-28 08:57:00 Test Item Value Reference Range Interpretation Comments Creatinine Lvl (test code = Creatinine 1.28 0.50-1.40 Lvl) [facility]2022-02-28 08:57:00 Test Item Value Reference Range Interpretation Comments Sodium Lvl (test code = Sodium Lvl) 140 135-145 [place] 158962-02-28 08:57:00 Test Item Value Reference Range Interpretation Comments Potassium Lvl (test code = Potassium 3.9 3.5-5.1 Lvl) [facility]2022-02-28 08:57:00 Test Item Value Reference Range Interpretation Comments Chloride Lvl (test code = Chloride Lvl) 108 95-109 [place] 158962-02-28 08:57:00 Test Item Value Reference Range Interpretation Comments CO2 (test code = CO2) 27 24-32 [place] 158962-02-28 08:57:00 Test Item Value Reference Range Interpretation Comments Calcium Lvl (test code = Calcium Lvl) 9.5 8.5-10.5 [place] 158962-02-28 08:57:00 Test Item Value Reference Range Interpretation Comments AGAP (test code = AGAP) 8.9 10.0-20.0 [place] 158962-02-28 08:57:00 Test Item Value Reference Range Interpretation Comments eGFR (test code = eGFR) 69 [facility]:57:00 Test Item Value Reference Range Interpretation Comments WBC (test code = WBC) 8.5 3.7-10.4 [place] 273712-02-28 08:57:00 Test Item Value Reference Range Interpretation Comments RBC (test code = RBC) 4.69 4.70-6.10 [place] 273712-02-28 08:57:00 Test Item Value Reference Range Interpretation Comments Hgb (test code = Hgb) 13.3 14.0-18.0 [place] 273712-02-28 08:57:00 Test Item Value Reference Range Interpretation Comments Hct (test code = Hct) 40.4 42.0-54.0 [facility] ClinicsLaeiqltMDPPLTGIAR5793-10-64 08:57:00 Test Item Value Reference Range Interpretation Comments MCV (test code = MCV) 86.1 80.0-94.0 [place] 273712-02-28 08:57:00 Test Item Value Reference Range Interpretation Comments MCH (test code = MCH) 28.3 pg 27.0-31.0 [place] 273712-02-28 08:57:00 Test Item Value Reference Range Interpretation Comments MCHC (test code = MCHC) 32.9 32.0-36.0 [id number] 08:57:00 Test Item Value Reference Range Interpretation Comments RDW (test code = RDW) 14.1 11.5-14.5 [place] 273712-02-28 08:57:00 Test Item Value Reference Range Interpretation Comments Platelet (test code = Platelet) 192 133-450 [facility] ClinicsLtdhksrGNIXUJOUEA2781-44-88 08:57:00 Test Item Value Reference Range Interpretation Comments MPV (test code = MPV) 9.2 7.4-10.4 [place] 273712-02-28 08:57:00 Test Item Value Reference Range Interpretation Comments R-time (test code = R-time) 6.0 min 5.0-10.0 [place] 273712-02-28 08:57:00 Test Item Value Reference Range Interpretation Comments K-time (test code = K-time) 1.4 min 1.0-3.0 [place] 273712-02-28 08:57:00 Test Item Value Reference Range Interpretation Comments Angle (test code = Angle) 69.7 degrees 53.0-72.0 [place] 273712-02-28 08:57:00 Test Item Value Reference Range Interpretation Comments Max Amp (test code = Max Amp) 66.3 mm 50.0-70.0 [place] [address]-02-28 08:57:00 Test Item Value Reference Range Interpretation Comments G-value (test code = G-value) 9.8 4.5-11.0 [place] [address]-02-28 08:57:00 Test Item Value Reference Range Interpretation Comments Ly30 (test code = 0.6 See_Comment [Automate d message] The Ly30) system which ge nerated this result transmit leydi reference range : <=7.5. The reference range was not used to interpr et this result as krishna l/abnormal. [place] [address]-02-28 08:57:00 Test Item Value Reference Range Interpretation Comments Coag Index (test code 1.2 1 See_Comment [Auto mated message] The = Coag Index) system which g enerated this result transmit leydi reference range : <=3.0. The reference range was not used to interpr et this result as krishna l/abnormal. [place] 273712-02-28 08:57:00 Test Item Value Reference Range Interpretation Comments TEG Data (test code = See Note (10/09/21 2:57 TEG Data) AM) [address]02-28 08:57:00 Test Item Value Reference Range Interpretation Comments PT (test code = PT) 12.1 s 12.0-14.7 [place] [address]-02-28 08:57:00 Test Item Value Reference Range Interpretation Comments INR (test code = INR) 0.90 1 0.85-1.17 [place] [address]-02-28 08:57:00 Test Item Value Reference Range Interpretation Comments PTT (test code = PTT) 27.6 s 22.9-35.8 [place] [address]-02-28 08:57:00 Test Item Value Reference Range Interpretation Comments Segs (test code = Segs) 52.0 45.0-75.0 [place] [address]-02-28 08:57:00 Test Item Value Reference Range Interpretation Comments Lymphocytes (test code = Lymphocytes) 33.8 20.0-40.0 [place] [address]-02-28 08:57:00 Test Item Value Reference Range Interpretation Comments Monocytes (test code = Monocytes) 8.0 2.0-12.0 [place] [address]-02-28 08:57:00 Test Item Value Reference Range Interpretation Comments Eosinophils (test code = 5.8 See_Comment [A utomated message] The Eosinophils) system which ge nerated this result tra nsmitted reference range : <=4.0. The reference r caleb was not used to int erpret this result as normal/abnormal . [place] [address]-02-28 08:57:00 Test Item Value Reference Range Interpretation Comments Basophils (test code = 0.4 See_Comment [Aut omated message] The Basophils) system which ge nerated this result tra nsmitted reference range : <=1.0. The reference r caleb was not used to int erpret this result as normal/abnormal . [place] [address]-02-28 08:57:00 Test Item Value Reference Range Interpretation Comments Neutrophils # (test code = Neutrophils 4.4 1.5-8.1 #) [place] [address]-02-28 08:57:00 Test Item Value Reference Range Interpretation Comments Lymphocytes # (test code = Lymphocytes 2.9 1.0-5.5 #) [place] [address]-02-28 08:57:00 Test Item Value Reference Range Interpretation Comments Monocytes # (test code 0.7 See_Comment [Aut omated message] The = Monocytes #) system which generated this result tra nsmitted reference range : <=0.8. The reference r caleb was not used to int erpret this result as normal/abnormal . [place] 273712-02-28 08:57:00 Test Item Value Reference Range Interpretation Comments Eosinophils # (test code 0.5 See_Comment [A utomated message] The = Eosinophils #) system whic h generated this result tra nsmitted reference range : <=0.5. The reference r caleb was not used to int erpret this result as normal/abnormal . [place] 273712-02-28 08:57:00 Test Item Value Reference Range Interpretation Comments TEG Interp (test Thrombelastograph results code = TEG are within reference ranges. Interp) Note that TEG does not show effect of NSAIDs or P2Y12 inhibitors. CPT:[id number] [place] 158962-02-28 08:57:00 Test Item Value Reference Range Interpretation Comments Glucose Lvl (test code = Glucose Lvl) 109 70-99 [place] 158962-02-28 08:57:00 Test Item Value Reference Range Interpretation Comments BUN (test code = BUN) 17 7-22 [place] 158962-02-28 08:57:00 Test Item Value Reference Range Interpretation Comments Creatinine Lvl (test code = Creatinine 1.28 0.50-1.40 Lvl) [place] 158962-02-28 08:57:00 Test Item Value Reference Range Interpretation Comments Sodium Lvl (test code = Sodium Lvl) 140 135-145 [place] 158962-02-28 08:57:00 Test Item Value Reference Range Interpretation Comments Potassium Lvl (test code = Potassium 3.9 3.5-5.1 Lvl) [place] 158962-02-28 08:57:00 Test Item Value Reference Range Interpretation Comments Chloride Lvl (test code = Chloride Lvl) 108 95-109 [place] 158962-02-28 08:57:00 Test Item Value Reference Range Interpretation Comments CO2 (test code = CO2) 27 24-32 [place] 158962-02-28 08:57:00 Test Item Value Reference Range Interpretation Comments Calcium Lvl (test code = Calcium Lvl) 9.5 8.5-10.5 [place] 158962-02-28 08:57:00 Test Item Value Reference Range Interpretation Comments AGAP (test code = AGAP) 8.9 10.0-20.0 [place] 158962-02-28 08:57:00 Test Item Value Reference Range Interpretation Comments eGFR (test code = eGFR) 69 [place] 273712-02-28 08:57:00 Test Item Value Reference Range Interpretation Comments WBC (test code = WBC) 8.5 3.7-10.4 [place] [address]-02-28 08:57:00 Test Item Value Reference Range Interpretation Comments RBC (test code = RBC) 4.69 4.70-6.10 [place] 273712-02-28 08:57:00 Test Item Value Reference Range Interpretation Comments Hgb (test code = Hgb) 13.3 14.0-18.0 [facility]icsGjwpkdxPYHDGARGGF6629-55-10 08:57:00 Test Item Value Reference Range Interpretation Comments Hct (test code = Hct) 40.4 42.0-54.0 [place] 273712-02-28 08:57:00 Test Item Value Reference Range Interpretation Comments MCV (test code = MCV) 86.1 80.0-94.0 [place] 273712-02-28 08:57:00 Test Item Value Reference Range Interpretation Comments MCH (test code = MCH) 28.3 pg 27.0-31.0 [place] 273712-02-28 08:57:00 Test Item Value Reference Range Interpretation Comments MCHC (test code = MCHC) 32.9 32.0-36.0 [place] 273712-02-28 08:57:00 Test Item Value Reference Range Interpretation Comments RDW (test code = RDW) 14.1 11.5-14.5 [place] 273712-02-28 08:57:00 Test Item Value Reference Range Interpretation Comments Platelet (test code = Platelet) 192 133-450 [facility] ClinicsVbmrecrCFRAPBFQJC5951-90-88 08:57:00 Test Item Value Reference Range Interpretation Comments MPV (test code = MPV) 9.2 7.4-10.4 [place] 273712-02-28 08:57:00 Test Item Value Reference Range Interpretation Comments R-time (test code = R-time) 6.0 min 5.0-10.0 [place] 273712-02-28 08:57:00 Test Item Value Reference Range Interpretation Comments K-time (test code = K-time) 1.4 min 1.0-3.0 [place] 273712-02-28 08:57:00 Test Item Value Reference Range Interpretation Comments Angle (test code = Angle) 69.7 degrees 53.0-72.0 [place] 273712-02-28 08:57:00 Test Item Value Reference Range Interpretation Comments Max Amp (test code = Max Amp) 66.3 mm 50.0-70.0 [place] 273712-02-28 08:57:00 Test Item Value Reference Range Interpretation Comments G-value (test code = G-value) 9.8 4.5-11.0 [place] [address]-02-28 08:57:00 Test Item Value Reference Range Interpretation Comments Ly30 (test code = 0.6 See_Comment [Automate d message] The Ly30) system which ge nerated this result transmit leydi reference range : <=7.5. The reference range was not used to interpr et this result as krishna l/abnormal. [place] 273712-02-28 08:57:00 Test Item Value Reference Range Interpretation Comments Coag Index (test code 1.2 1 See_Comment [Auto mated message] The = Coag Index) system which g enerated this result transmit leydi reference range : <=3.0. The reference range was not used to interpr et this result as krishna l/abnormal. [address]02-28 08:57:00 Test Item Value Reference Range Interpretation Comments TEG Data (test code = See Note (10/09/21 2:57 TEG Data) AM) [place] [address]-02-28 08:57:00 Test Item Value Reference Range Interpretation Comments PT (test code = PT) 12.1 s 12.0-14.7 [place] [address]-02-28 08:57:00 Test Item Value Reference Range Interpretation Comments INR (test code = INR) 0.90 1 0.85-1.17 [place] [address]-02-28 08:57:00 Test Item Value Reference Range Interpretation Comments PTT (test code = PTT) 27.6 s 22.9-35.8 [place] [address]-02-28 08:57:00 Test Item Value Reference Range Interpretation Comments Segs (test code = Segs) 52.0 45.0-75.0 [place] [address]-02-28 08:57:00 Test Item Value Reference Range Interpretation Comments Lymphocytes (test code = Lymphocytes) 33.8 20.0-40.0 [place] [address]-02-28 08:57:00 Test Item Value Reference Range Interpretation Comments Monocytes (test code = Monocytes) 8.0 2.0-12.0 [place] [address]-02-28 08:57:00 Test Item Value Reference Range Interpretation Comments Eosinophils (test code = 5.8 See_Comment [A utomated message] The Eosinophils) system which ge nerated this result tra nsmitted reference range : <=4.0. The reference r caleb was not used to int erpret this result as normal/abnormal . [place] 273712-02-28 08:57:00 Test Item Value Reference Range Interpretation Comments Basophils (test code = 0.4 See_Comment [Aut omated message] The Basophils) system which ge nerated this result tra nsmitted reference range : <=1.0. The reference r caleb was not used to int erpret this result as normal/abnormal . [place] 273712-02-28 08:57:00 Test Item Value Reference Range Interpretation Comments Neutrophils # (test code = Neutrophils 4.4 1.5-8.1 #) [place] 273712-02-28 08:57:00 Test Item Value Reference Range Interpretation Comments Lymphocytes # (test code = Lymphocytes 2.9 1.0-5.5 #) [place] 273712-02-28 08:57:00 Test Item Value Reference Range Interpretation Comments Monocytes # (test code 0.7 See_Comment [Aut omated message] The = Monocytes #) system which generated this result tra nsmitted reference range : <=0.8. The reference r caleb was not used to int erpret this result as normal/abnormal . [facility]YpqvchfXMCNIJWUMT1269-23-79 08:57:00 Test Item Value Reference Range Interpretation Comments Eosinophils # (test code 0.5 See_Comment [A utomated message] The = Eosinophils #) system whic h generated this result tra nsmitted reference range : <=0.5. The reference r caleb was not used to int erpret this result as normal/abnormal . [facility]icsAacjfcrDSRZEQRJYG8654-81-83 08:57:00 Test Item Value Reference Range Interpretation Comments TEG Interp (test Thrombelastograph results code = TEG are within reference ranges. Interp) Note that TEG does not show effect of NSAIDs or P2Y12 inhibitors. CPT:[id number] [place] 158962-02-28 02:07:26 Test Item Value Reference Range Interpretation Comments Glucose Lvl (test code = Glucose Lvl) 95 70-99 [place] 158962-02-28 02:07:26 Test Item Value Reference Range Interpretation Comments BUN (test code = BUN) 13 7-22 [place] 158962-02-28 02:07:26 Test Item Value Reference Range Interpretation Comments Creatinine Lvl (test code = Creatinine 1.24 0.50-1.40 Lvl) [place] 158962-02-28 02:07:26 Test Item Value Reference Range Interpretation Comments Sodium Lvl (test code = Sodium Lvl) 140 135-145 [place] 158962-02-28 02:07:26 Test Item Value Reference Range Interpretation Comments Potassium Lvl (test code = Potassium 3.7 3.5-5.1 Lvl) [place] 158962-02-28 02:07:26 Test Item Value Reference Range Interpretation Comments Chloride Lvl (test code = Chloride Lvl) 106 95-109 [place] 158962-02-28 02:07:26 Test Item Value Reference Range Interpretation Comments CO2 (test code = CO2) 30 24-32 [place] 158962-02-28 02:07:26 Test Item Value Reference Range Interpretation Comments Calcium Lvl (test code = Calcium Lvl) 9.5 8.5-10.5 [place] 158962-02-28 02:07:26 Test Item Value Reference Range Interpretation Comments AGAP (test code = AGAP) 7.7 10.0-20.0 [place] 158962-02-28 02:07:26 Test Item Value Reference Range Interpretation Comments eGFR (test code = eGFR) 72 [place] 273712-02-28 02:07:26 Test Item Value Reference Range Interpretation Comments WBC X 10x3 (test code = WBC X 10x3) 7.4 3.7-10.4 [place] [address]-02-28 02:07:26 Test Item Value Reference Range Interpretation Comments RBC X 10x6 (test code = RBC X 10x6) 5.06 4.70-6.10 [place] 273712-02-28 02:07:26 Test Item Value Reference Range Interpretation Comments Hgb (test code = Hgb) 14.0 14.0-18.0 [place] [address]-02-28 02:07:26 Test Item Value Reference Range Interpretation Comments Hct (test code = Hct) 43.5 42.0-54.0 [place] [address]-02-28 02:07:26 Test Item Value Reference Range Interpretation Comments MCV (test code = MCV) 85.9 80.0-94.0 [place] 273712-02-28 02:07:26 Test Item Value Reference Range Interpretation Comments MCH (test code = MCH) 27.7 pg 27.0-31.0 [place] 273712-02-28 02:07:26 Test Item Value Reference Range Interpretation Comments MCHC (test code = MCHC) 32.3 32.0-36.0 [place] 273712-02-28 02:07:26 Test Item Value Reference Range Interpretation Comments RDW (test code = RDW) 13.9 11.5-14.5 [place] [address]-02-28 02:07:26 Test Item Value Reference Range Interpretation Comments Platelet (test code = Platelet) 192 133-450 [place] 273712-02-28 02:07:26 Test Item Value Reference Range Interpretation Comments MPV (test code = MPV) 9.1 7.4-10.4 [place] 273712-02-28 02:07:26 Test Item Value Reference Range Interpretation Comments ACT (TEG) Rapid (test code = ACT (TEG) 128 s 86-118 Rapid) [place] 273712-02-28 02:07:26 Test Item Value Reference Range Interpretation Comments Split Point Rapid (test code = Split 0.7 min Point Rapid) [place] [address]-02-28 02:07:26 Test Item Value Reference Range Interpretation Comments R-time Rapid (test code = R-time 0.8 min 0.4-0.7 Rapid) [place] [address]-02-28 02:07:26 Test Item Value Reference Range Interpretation Comments K-time Rapid (test code = K-time 1.1 min 0.6-2.3 Rapid) [place] [address]-02-28 02:07:26 Test Item Value Reference Range Interpretation Comments Angle Rapid (test code = Angle 76 degrees 64-80 Rapid) [place] [address]-02-28 02:07:26 Test Item Value Reference Range Interpretation Comments Max Amplitude Rapid (test code = Max 71 mm 52-71 Amplitude Rapid) [place] [address]-02-28 02:07:26 Test Item Value Reference Range Interpretation Comments G-value Rapid (test code = G-value 12.1 5.0-11.6 Rapid) [place] 273712-02-28 02:07:26 Test Item Value Reference Range Interpretation Comments Estimated % Lysis Rapid 0.8 See_Comment [Au tomated message] The (test code = Estimated syste m which generated % Lysis Rapid) this result t ransmitted reference range : <=7.5. The reference r caleb was not used to int erpret this result as normal/abnormal . [address]02-28 02:07:26 Test Item Value Reference Range Interpretation Comments PT (test code = PT) 12.5 s 12.0-14.7 [place] [address]-02-28 02:07:26 Test Item Value Reference Range Interpretation Comments INR (test code = INR) 0.94 1 0.85-1.17 [place] 273712-02-28 02:07:26 Test Item Value Reference Range Interpretation Comments PTT (test code = PTT) 29.6 s 22.9-35.8 [place] [address]-02-28 02:07:26 Test Item Value Reference Range Interpretation Comments Segs (test code = Segs) 57.2 45.0-75.0 [place] 273712-02-28 02:07:26 Test Item Value Reference Range Interpretation Comments Lymphocytes (test code = Lymphocytes) 30.9 20.0-40.0 [place] 273712-02-28 02:07:26 Test Item Value Reference Range Interpretation Comments Monocytes (test code = Monocytes) 5.6 2.0-12.0 [place] [address]-02-28 02:07:26 Test Item Value Reference Range Interpretation Comments Eosinophils (test code = 5.6 See_Comment [A utomated message] The Eosinophils) system which ge nerated this result tra nsmitted reference range : <=4.0. The reference r caleb was not used to int erpret this result as normal/abnormal . [place] 273712-02-28 02:07:26 Test Item Value Reference Range Interpretation Comments Basophils (test code = 0.7 See_Comment [Aut omated message] The Basophils) system which ge nerated this result tra nsmitted reference range : <=1.0. The reference r caleb was not used to int erpret this result as normal/abnormal . [facility]icsLnpvdmcVOQWLMPDNC7857-40-20 02:07:26 Test Item Value Reference Range Interpretation Comments Neutrophils # (test code = Neutrophils 4.3 1.5-8.1 #) [place] 273712-02-28 02:07:26 Test Item Value Reference Range Interpretation Comments Lymphocytes # (test code = Lymphocytes 2.3 1.0-5.5 #) [place] 273712-02-28 02:07:26 Test Item Value Reference Range Interpretation Comments Monocytes # (test code 0.4 See_Comment [Aut omated message] The = Monocytes #) system which generated this result tra nsmitted reference range : <=0.8. The reference r caleb was not used to int erpret this result as normal/abnormal . [place] 273712-02-28 02:07:26 Test Item Value Reference Range Interpretation Comments Eosinophils # (test code 0.4 See_Comment [A utomated message] The = Eosinophils #) system whic h generated this result tra nsmitted reference range : <=0.5. The reference r caleb was not used to int erpret this result as normal/abnormal . [facility]mgtxkUDQWRUALHA5448-89-08 02:07:26 Test Item Value Reference Range Interpretation Comments Coronavirus (COVID-19) Not Detected (10/08/21 LIZBETH (test code = 8:07 PM) Coronavirus (COVID-19) LIZBETH) [facility]2022-02-28 02:07:26 Test Item Value Reference Range Interpretation Comments Glucose Lvl (test code = Glucose Lvl) 95 70-99 [place] 158962-02-28 02:07:26 Test Item Value Reference Range Interpretation Comments BUN (test code = BUN) 13 7- [place] 158962-02-28 02:07:26 Test Item Value Reference Range Interpretation Comments Creatinine Lvl (test code = Creatinine 1.24 0.50-1.40 Lvl) [place] 158962-02-28 02:07:26 Test Item Value Reference Range Interpretation Comments Sodium Lvl (test code = Sodium Lvl) 140 135-145 [place] 158962-02-28 02:07:26 Test Item Value Reference Range Interpretation Comments Potassium Lvl (test code = Potassium 3.7 3.5-5.1 Lvl) [place] 158962-02-28 02:07:26 Test Item Value Reference Range Interpretation Comments Chloride Lvl (test code = Chloride Lvl) 106 95-109 [place] 158962-02-28 02:07:26 Test Item Value Reference Range Interpretation Comments CO2 (test code = CO2) 30 24-32 [place] 158962-02-28 02:07:26 Test Item Value Reference Range Interpretation Comments Calcium Lvl (test code = Calcium Lvl) 9.5 8.5-10.5 [place] 158962-02-28 02:07:26 Test Item Value Reference Range Interpretation Comments AGAP (test code = AGAP) 7.7 10.0-20.0 [place] 158962-02-28 02:07:26 Test Item Value Reference Range Interpretation Comments eGFR (test code = eGFR) 72 [place] 273712-02-28 02:07:26 Test Item Value Reference Range Interpretation Comments WBC X 10x3 (test code = WBC X 10x3) 7.4 3.7-10.4 [place] 273712-02-28 02:07:26 Test Item Value Reference Range Interpretation Comments RBC X 10x6 (test code = RBC X 10x6) 5.06 4.70-6.10 [place] 273712-02-28 02:07:26 Test Item Value Reference Range Interpretation Comments Hgb (test code = Hgb) 14.0 14.0-18.0 [place] [address]-02-28 02:07:26 Test Item Value Reference Range Interpretation Comments Hct (test code = Hct) 43.5 42.0-54.0 [place] [address]-02-28 02:07:26 Test Item Value Reference Range Interpretation Comments MCV (test code = MCV) 85.9 80.0-94.0 [place] [address]-02-28 02:07:26 Test Item Value Reference Range Interpretation Comments MCH (test code = MCH) 27.7 pg 27.0-31.0 [place] [address]-02-28 02:07:26 Test Item Value Reference Range Interpretation Comments MCHC (test code = MCHC) 32.3 32.0-36.0 [place] [address]-02-28 02:07:26 Test Item Value Reference Range Interpretation Comments RDW (test code = RDW) 13.9 11.5-14.5 [place] [address]-02-28 02:07:26 Test Item Value Reference Range Interpretation Comments Platelet (test code = Platelet) 192 133-450 [place] 273712-02-28 02:07:26 Test Item Value Reference Range Interpretation Comments MPV (test code = MPV) 9.1 7.4-10.4 [place] [address]-02-28 02:07:26 Test Item Value Reference Range Interpretation Comments ACT (TEG) Rapid (test code = ACT (TEG) 128 s 86-118 Rapid) [address]02-28 02:07:26 Test Item Value Reference Range Interpretation Comments Split Point Rapid (test code = Split 0.7 min Point Rapid) [place] 273712-02-28 02:07:26 Test Item Value Reference Range Interpretation Comments R-time Rapid (test code = R-time 0.8 min 0.4-0.7 Rapid) [address]02-28 02:07:26 Test Item Value Reference Range Interpretation Comments K-time Rapid (test code = K-time 1.1 min 0.6-2.3 Rapid) [place] [address]-02-28 02:07:26 Test Item Value Reference Range Interpretation Comments Angle Rapid (test code = Angle 76 degrees 64-80 Rapid) [place] [address]-02-28 02:07:26 Test Item Value Reference Range Interpretation Comments Max Amplitude Rapid (test code = Max 71 mm 52-71 Amplitude Rapid) [place] [address]-02-28 02:07:26 Test Item Value Reference Range Interpretation Comments G-value Rapid (test code = G-value 12.1 5.0-11.6 Rapid) [place] [address]-02-28 02:07:26 Test Item Value Reference Range Interpretation Comments Estimated % Lysis Rapid 0.8 See_Comment [Au tomated message] The (test code = Estimated syste m which generated % Lysis Rapid) this result t ransmitted reference range : <=7.5. The reference r caleb was not used to int erpret this result as normal/abnormal . [facility]icsYqwkwfnWASSPEDJOQ6446-71-43 02:07:26 Test Item Value Reference Range Interpretation Comments PT (test code = PT) 12.5 s 12.0-14.7 [place] 273712-02-28 02:07:26 Test Item Value Reference Range Interpretation Comments INR (test code = INR) 0.94 1 0.85-1.17 [place] 273712-02-28 02:07:26 Test Item Value Reference Range Interpretation Comments PTT (test code = PTT) 29.6 s 22.9-35.8 [place] [address]-02-28 02:07:26 Test Item Value Reference Range Interpretation Comments Segs (test code = Segs) 57.2 45.0-75.0 [place] 273712-02-28 02:07:26 Test Item Value Reference Range Interpretation Comments Lymphocytes (test code = Lymphocytes) 30.9 20.0-40.0 [place] 273712-02-28 02:07:26 Test Item Value Reference Range Interpretation Comments Monocytes (test code = Monocytes) 5.6 2.0-12.0 [facility]icsOubthlsSPATVQVMIA8210-62-99 02:07:26 Test Item Value Reference Range Interpretation Comments Eosinophils (test code = 5.6 See_Comment [A utomated message] The Eosinophils) system which ge nerated this result tra nsmitted reference range : <=4.0. The reference r caleb was not used to int erpret this result as normal/abnormal . [place] 273712-02-28 02:07:26 Test Item Value Reference Range Interpretation Comments Basophils (test code = 0.7 See_Comment [Aut omated message] The Basophils) system which ge nerated this result tra nsmitted reference range : <=1.0. The reference r caleb was not used to int erpret this result as normal/abnormal . [place] 273712-02-28 02:07:26 Test Item Value Reference Range Interpretation Comments Neutrophils # (test code = Neutrophils 4.3 1.5-8.1 #) [place] 273712-02-28 02:07:26 Test Item Value Reference Range Interpretation Comments Lymphocytes # (test code = Lymphocytes 2.3 1.0-5.5 #) [facility]icsExldeguJLCLPDWJBU9019-66-18 02:07:26 Test Item Value Reference Range Interpretation Comments Monocytes # (test code 0.4 See_Comment [Aut omated message] The = Monocytes #) system which generated this result tra nsmitted reference range : <=0.8. The reference r caleb was not used to int erpret this result as normal/abnormal . [facility]icsEnyswxyWCULRAWTZB8696-19-18 02:07:26 Test Item Value Reference Range Interpretation Comments Eosinophils # (test code 0.4 See_Comment [A utomated message] The = Eosinophils #) system whic h generated this result tra nsmitted reference range : <=0.5. The reference r caleb was not used to int erpret this result as normal/abnormal . [facility]ennialSpxkqhxWFVBSLMKDI3091-43-73 02:07:26 Test Item Value Reference Range Interpretation Comments Coronavirus (COVID-19) Not Detected (10/08/21 LIZBETH (test code = 8:07 PM) Coronavirus (COVID-19) LIZBETH) [facility] [id number] 01:55:00 Test Item Value Reference Range Interpretation Comments ABO/Rh (test code = ABO/Rh) O POS [facility] [employer] [facility] [id number] 01:55:00 Test Item Value Reference Range Interpretation Comments Antibody Scrn (test Negative (10/08/21 7:55 code = Antibody Scrn) PM) [facility] [id number] 01:55:00 Test Item Value Reference Range Interpretation Comments ABO/Rh (test code = ABO/Rh) O POS [facility] [id number] 01:55:00 Test Item Value Reference Range Interpretation Comments Antibody Scrn (test Negative (10/08/21 7:55 code = Antibody Scrn) PM) [facility] [id number] 19:46:00 Test Item Value Reference Range Interpretation Comments Glucose Lvl (test code = Glucose Lvl) 133 70-99 [facility]2022-02-22 19:46:00 Test Item Value Reference Range Interpretation Comments BUN (test code = BUN) 14 7-22 [place] 158962-02-22 19:46:00 Test Item Value Reference Range Interpretation Comments Creatinine Lvl (test code = Creatinine 1.22 0.50-1.40 Lvl) [place] 158962-02-22 19:46:00 Test Item Value Reference Range Interpretation Comments Sodium Lvl (test code = Sodium Lvl) 138 135-145 [place] 158962-02-22 19:46:00 Test Item Value Reference Range Interpretation Comments Potassium Lvl (test code = Potassium 4.1 3.5-5.1 Lvl) [place] 158962-02-22 19:46:00 Test Item Value Reference Range Interpretation Comments Chloride Lvl (test code = Chloride Lvl) 108 95-109 [place] 158962-02-22 19:46:00 Test Item Value Reference Range Interpretation Comments CO2 (test code = CO2) 26 24-32 [place] 158962-02-22 19:46:00 Test Item Value Reference Range Interpretation Comments Calcium Lvl (test code = Calcium Lvl) 8.6 8.5-10.5 [place] 158962-02-22 19:46:00 Test Item Value Reference Range Interpretation Comments AGAP (test code = AGAP) 8.1 10.0-20.0 [place] 158962-02-22 19:46:00 Test Item Value Reference Range Interpretation Comments eGFR (test code = eGFR) 73 [facility]icsYsbwmunLOOCWIGBEL5218-33-72 19:46:00 Test Item Value Reference Range Interpretation Comments WBC (test code = WBC) 6.2 3.7-10.4 [place] 273712-02-22 19:46:00 Test Item Value Reference Range Interpretation Comments RBC (test code = RBC) 4.91 4.70-6.10 [place] 273712-02-22 19:46:00 Test Item Value Reference Range Interpretation Comments Hgb (test code = Hgb) 13.7 14.0-18.0 [place] 273712-02-22 19:46:00 Test Item Value Reference Range Interpretation Comments Hct (test code = Hct) 42.1 42.0-54.0 [place] 273712-02-22 19:46:00 Test Item Value Reference Range Interpretation Comments MCV (test code = MCV) 85.8 80.0-94.0 [place] 273712-02-22 19:46:00 Test Item Value Reference Range Interpretation Comments MCH (test code = MCH) 27.9 pg 27.0-31.0 [place] 273712-02-22 19:46:00 Test Item Value Reference Range Interpretation Comments MCHC (test code = MCHC) 32.6 32.0-36.0 [place] 273712-02-22 19:46:00 Test Item Value Reference Range Interpretation Comments RDW (test code = RDW) 14.3 11.5-14.5 [place] 273712-02-22 19:46:00 Test Item Value Reference Range Interpretation Comments Platelet (test code = Platelet) 153 133-450 [place] 273712-02-22 19:46:00 Test Item Value Reference Range Interpretation Comments MPV (test code = MPV) 9.5 7.4-10.4 [place] 273712-02-22 19:46:00 Test Item Value Reference Range Interpretation Comments PT (test code = PT) 12.2 s 12.0-14.7 [place] 273712-02-22 19:46:00 Test Item Value Reference Range Interpretation Comments INR (test code = INR) 0.91 1 0.85-1.17 [place] 273712-02-22 19:46:00 Test Item Value Reference Range Interpretation Comments PTT (test code = PTT) 27.1 s 22.9-35.8 [place] 273712-02-22 19:46:00 Test Item Value Reference Range Interpretation Comments Plt Morph (test code = Normal (10/03/21 1:46 Plt Morph) PM) [place] 273712-02-22 19:46:00 Test Item Value Reference Range Interpretation Comments Segs (test code = Segs) 83.7 45.0-75.0 [place] 273712-02-22 19:46:00 Test Item Value Reference Range Interpretation Comments Lymphocytes (test code = Lymphocytes) 12.3 20.0-40.0 [place] 273712-02-22 19:46:00 Test Item Value Reference Range Interpretation Comments Monocytes (test code = Monocytes) 1.6 2.0-12.0 [place] 273712-02-22 19:46:00 Test Item Value Reference Range Interpretation Comments Eosinophils (test code = 2.0 See_Comment [A utomated message] The Eosinophils) system which ge nerated this result tra nsmitted reference range : <=4.0. The reference r caleb was not used to int erpret this result as normal/abnormal . [facility]icsFjbxqojGWONGQFNKQ6762-48-85 19:46:00 Test Item Value Reference Range Interpretation Comments Basophils (test code = 0.4 See_Comment [Aut omated message] The Basophils) system which ge nerated this result tra nsmitted reference range : <=1.0. The reference r caleb was not used to int erpret this result as normal/abnormal . [facility]icsFpyembaVWGBMMETJQ4877-14-17 19:46:00 Test Item Value Reference Range Interpretation Comments Neutrophils # (test code = Neutrophils 5.2 1.5-8.1 #) [facility]icsTnikwgqTIRDZTKAEM7372-21-80 19:46:00 Test Item Value Reference Range Interpretation Comments Lymphocytes # (test code = Lymphocytes 0.8 1.0-5.5 #) [facility]icsEykrdgwDRJQCBLNMA9810-50-07 19:46:00 Test Item Value Reference Range Interpretation Comments Monocytes # (test code 0.1 See_Comment [Aut omated message] The = Monocytes #) system which generated this result tra nsmitted reference range : <=0.8. The reference r caleb was not used to int erpret this result as normal/abnormal . [facility]icsQpuwktdTLLOAXKKVX0783-12-14 19:46:00 Test Item Value Reference Range Interpretation Comments Eosinophils # (test code 0.1 See_Comment [A utomated message] The = Eosinophils #) system whic h generated this result tra nsmitted reference range : <=0.5. The reference r caleb was not used to int erpret this result as normal/abnormal . [facility]ennial[facility] [id number] 19:46:00 Test Item Value Reference Range Interpretation Comments Glucose Lvl (test code = Glucose Lvl) 133 70-99 [facility]ennial[facility] [id number] 19:46:00 Test Item Value Reference Range Interpretation Comments BUN (test code = BUN) 14 7-22 [place] 158962-02-22 19:46:00 Test Item Value Reference Range Interpretation Comments Creatinine Lvl (test code = Creatinine 1.22 0.50-1.40 Lvl) [place] 158962-02-22 19:46:00 Test Item Value Reference Range Interpretation Comments Sodium Lvl (test code = Sodium Lvl) 138 135-145 [place] 158962-02-22 19:46:00 Test Item Value Reference Range Interpretation Comments Potassium Lvl (test code = Potassium 4.1 3.5-5.1 Lvl) [place] 158962-02-22 19:46:00 Test Item Value Reference Range Interpretation Comments Chloride Lvl (test code = Chloride Lvl) 108 95-109 [place] 158962-02-22 19:46:00 Test Item Value Reference Range Interpretation Comments CO2 (test code = CO2) 26 24-32 [place] 158962-02-22 19:46:00 Test Item Value Reference Range Interpretation Comments Calcium Lvl (test code = Calcium Lvl) 8.6 8.5-10.5 [place] 158962-02-22 19:46:00 Test Item Value Reference Range Interpretation Comments AGAP (test code = AGAP) 8.1 10.0-20.0 [place] 158962-02-22 19:46:00 Test Item Value Reference Range Interpretation Comments eGFR (test code = eGFR) 73 [place] 273712-02-22 19:46:00 Test Item Value Reference Range Interpretation Comments WBC (test code = WBC) 6.2 3.7-10.4 [place] 273712-02-22 19:46:00 Test Item Value Reference Range Interpretation Comments RBC (test code = RBC) 4.91 4.70-6.10 [place] [address]-02-22 19:46:00 Test Item Value Reference Range Interpretation Comments Hgb (test code = Hgb) 13.7 14.0-18.0 [place] [address]-02-22 19:46:00 Test Item Value Reference Range Interpretation Comments Hct (test code = Hct) 42.1 42.0-54.0 [place] 273712-02-22 19:46:00 Test Item Value Reference Range Interpretation Comments MCV (test code = MCV) 85.8 80.0-94.0 [place] 273712-02-22 19:46:00 Test Item Value Reference Range Interpretation Comments MCH (test code = MCH) 27.9 pg 27.0-31.0 [place] 273712-02-22 19:46:00 Test Item Value Reference Range Interpretation Comments MCHC (test code = MCHC) 32.6 32.0-36.0 [facility]icsK[id number] 19:46:00 Test Item Value Reference Range Interpretation Comments RDW (test code = RDW) 14.3 11.5-14.5 [place] 273712-02-22 19:46:00 Test Item Value Reference Range Interpretation Comments Platelet (test code = Platelet) 153 133-450 [facility]icsCmkbagoIDQJIRANTI7465-10-17 19:46:00 Test Item Value Reference Range Interpretation Comments MPV (test code = MPV) 9.5 7.4-10.4 [place] 273712-02-22 19:46:00 Test Item Value Reference Range Interpretation Comments PT (test code = PT) 12.2 s 12.0-14.7 [place] 273712-02-22 19:46:00 Test Item Value Reference Range Interpretation Comments INR (test code = INR) 0.91 1 0.85-1.17 [place] 273712-02-22 19:46:00 Test Item Value Reference Range Interpretation Comments PTT (test code = PTT) 27.1 s 22.9-35.8 [place] 273712-02-22 19:46:00 Test Item Value Reference Range Interpretation Comments Plt Morph (test code = Normal (10/03/21 1:46 Plt Morph) PM) [place] 273712-02-22 19:46:00 Test Item Value Reference Range Interpretation Comments Segs (test code = Segs) 83.7 45.0-75.0 [place] 273712-02-22 19:46:00 Test Item Value Reference Range Interpretation Comments Lymphocytes (test code = Lymphocytes) 12.3 20.0-40.0 [place] 273712-02-22 19:46:00 Test Item Value Reference Range Interpretation Comments Monocytes (test code = Monocytes) 1.6 2.0-12.0 [facility]icsGddflqeCLJNWOUSQL4237-82-63 19:46:00 Test Item Value Reference Range Interpretation Comments Eosinophils (test code = 2.0 See_Comment [A utomated message] The Eosinophils) system which ge nerated this result tra nsmitted reference range : <=4.0. The reference r caleb was not used to int erpret this result as normal/abnormal . [facility]icsVisbnjwTMYXRTBWME1021-63-61 19:46:00 Test Item Value Reference Range Interpretation Comments Basophils (test code = 0.4 See_Comment [Aut omated message] The Basophils) system which ge nerated this result tra nsmitted reference range : <=1.0. The reference r caleb was not used to int erpret this result as normal/abnormal . [facility]icsQwsugnfHNNRSDMFZM8398-60-49 19:46:00 Test Item Value Reference Range Interpretation Comments Neutrophils # (test code = Neutrophils 5.2 1.5-8.1 #) [facility]icsWjrnlcbBXQGWMNZVB7740-97-62 19:46:00 Test Item Value Reference Range Interpretation Comments Lymphocytes # (test code = Lymphocytes 0.8 1.0-5.5 #) [facility]icsRgqgexzTQTXSTDUJC2327-86-65 19:46:00 Test Item Value Reference Range Interpretation Comments Monocytes # (test code 0.1 See_Comment [Aut omated message] The = Monocytes #) system which generated this result tra nsmitted reference range : <=0.8. The reference r caleb was not used to int erpret this result as normal/abnormal . [facility]icsPitwkgqQAAFPQMDTT7428-19-28 19:46:00 Test Item Value Reference Range Interpretation Comments Eosinophils # (test code 0.1 See_Comment [A utomated message] The = Eosinophils #) system whic h generated this result tra nsmitted reference range : <=0.5. The reference r caleb was not used to int erpret this result as normal/abnormal . [facility] [id number] 17:31:00 Test Item Value Reference Range Interpretation Comments ABO/Rh (test code = ABO/Rh) O [facility] [id number] 17:31:00 Test Item Value Reference Range Interpretation Comments Antibody Scrn (test Negative (10/02/21 code = Antibody Scrn) 11:31 AM) [place] [address]-02-21 17:31:00 Test Item Value Reference Range Interpretation Comments Glucose Lvl (test code = Glucose Lvl) 92 70-99 [place] [address]-02-21 17:31:00 Test Item Value Reference Range Interpretation Comments BUN (test code = BUN) 17 7-22 [place] [address]-02-21 17:31:00 Test Item Value Reference Range Interpretation Comments Creatinine Lvl (test code = Creatinine 1.21 0.50-1.40 Lvl) [place] 158962-02-21 17:31:00 Test Item Value Reference Range Interpretation Comments Sodium Lvl (test code = Sodium Lvl) 140 135-145 [place] 158962-02-21 17:31:00 Test Item Value Reference Range Interpretation Comments Potassium Lvl (test code = Potassium 4.2 3.5-5.1 Lvl) [place] 158962-02-21 17:31:00 Test Item Value Reference Range Interpretation Comments Chloride Lvl (test code = Chloride Lvl) 108 95-109 [place] [address]-02-21 17:31:00 Test Item Value Reference Range Interpretation Comments CO2 (test code = CO2) 26 24-32 [place] 158962-02-21 17:31:00 Test Item Value Reference Range Interpretation Comments Calcium Lvl (test code = Calcium Lvl) 9.4 8.5-10.5 [place] 158962-02-21 17:31:00 Test Item Value Reference Range Interpretation Comments AGAP (test code = AGAP) 10.2 10.0-20.0 [place] 158962-02-21 17:31:00 Test Item Value Reference Range Interpretation Comments eGFR (test code = eGFR) 74 [place] [address]-02-21 17:31:00 Test Item Value Reference Range Interpretation Comments PTT (test code = PTT) 28.1 s 22.9-35.8 [place] [address]-02-21 17:31:00 Test Item Value Reference Range Interpretation Comments PT (test code = PT) 11.8 s 12.0-14.7 [place] [address]-02-21 17:31:00 Test Item Value Reference Range Interpretation Comments INR (test code = INR) 0.87 1 0.85-1.17 [facility]icsVnuiwuuTDXYNMHNYJ9948-34-99 17:31:00 Test Item Value Reference Range Interpretation Comments WBC (test code = WBC) 5.4 3.7-10.4 [facility]icsQhzfxaeKAZPGMFBGI6836-04-92 17:31:00 Test Item Value Reference Range Interpretation Comments RBC (test code = RBC) 4.90 4.70-6.10 [facility]icsHzraxwuYNDAKZGWGP4402-96-22 17:31:00 Test Item Value Reference Range Interpretation Comments Hgb (test code = Hgb) 13.7 14.0-18.0 [facility]icsNcmoucyZCWYQMPGXA0318-07-74 17:31:00 Test Item Value Reference Range Interpretation Comments Hct (test code = Hct) 42.0 42.0-54.0 [facility]icsIdrbjpcTTHBEOFVGO1254-29-15 17:31:00 Test Item Value Reference Range Interpretation Comments MCV (test code = MCV) 85.6 80.0-94.0 [facility]icsKugwhyeEIHZOBEOSQ2944-57-21 17:31:00 Test Item Value Reference Range Interpretation Comments MCH (test code = MCH) 27.9 pg 27.0-31.0 [facility]icsMfrnbazJDYFSWOAJW4003-67-62 17:31:00 Test Item Value Reference Range Interpretation Comments MCHC (test code = MCHC) 32.6 32.0-36.0 [facility]icsYrsypwtBMDOPNARWR3048-82-33 17:31:00 Test Item Value Reference Range Interpretation Comments RDW (test code = RDW) 14.1 11.5-14.5 [facility]icsFwttdveROVFAANKKN4394-31-27 17:31:00 Test Item Value Reference Range Interpretation Comments Platelet (test code = Platelet) 173 133-450 [facility] ClinicsBstfkqnNFTQHDXGIQ4785-86-92 17:31:00 Test Item Value Reference Range Interpretation Comments MPV (test code = MPV) 10.1 7.4-10.4 [facility]icsGpxpcgtUOWMUQIGXH6369-96-61 17:31:00 Test Item Value Reference Range Interpretation Comments Segs (test code = Segs) 54.1 45.0-75.0 [facility]icsYewpyetVRZUPMJKET3436-79-81 17:31:00 Test Item Value Reference Range Interpretation Comments Lymphocytes (test code = Lymphocytes) 30.9 20.0-40.0 [place] 273712-02-21 17:31:00 Test Item Value Reference Range Interpretation Comments Monocytes (test code = Monocytes) 6.7 2.0-12.0 [place] 273712-02-21 17:31:00 Test Item Value Reference Range Interpretation Comments Eosinophils (test code = 7.7 See_Comment [A utomated message] The Eosinophils) system which ge nerated this result tra nsmitted reference range : <=4.0. The reference r caleb was not used to int erpret this result as normal/abnormal . [place] 273712-02-21 17:31:00 Test Item Value Reference Range Interpretation Comments Basophils (test code = 0.6 See_Comment [Aut omated message] The Basophils) system which ge nerated this result tra nsmitted reference range : <=1.0. The reference r caleb was not used to int erpret this result as normal/abnormal . [place] 273712-02-21 17:31:00 Test Item Value Reference Range Interpretation Comments Neutrophils # (test code = Neutrophils 2.9 1.5-8.1 #) [place] 273712-02-21 17:31:00 Test Item Value Reference Range Interpretation Comments Lymphocytes # (test code = Lymphocytes 1.7 1.0-5.5 #) [facility]icsHfznacgLJMHSMFDGF5584-12-83 17:31:00 Test Item Value Reference Range Interpretation Comments Monocytes # (test code 0.4 See_Comment [Aut omated message] The = Monocytes #) system which generated this result tra nsmitted reference range : <=0.8. The reference r caleb was not used to int erpret this result as normal/abnormal . [place] 273712-02-21 17:31:00 Test Item Value Reference Range Interpretation Comments Eosinophils # (test code 0.4 See_Comment [A utomated message] The = Eosinophils #) system whic h generated this result tra nsmitted reference range : <=0.5. The reference r caleb was not used to int erpret this result as normal/abnormal . [facility]ennialYphuxjwRXJNLVFWLR6617-43-47 17:31:00 Test Item Value Reference Range Interpretation Comments Coronavirus (COVID-19) Not Detected (10/02/21 LIZBETH (test code = 11:31 AM) Coronavirus (COVID-19) LIZBETH) [facility] [id number] 17:31:00 Test Item Value Reference Range Interpretation Comments Hgb A1C (test code = Hgb A1C) 5.7 [facility] [id number] 17:31:00 Test Item Value Reference Range Interpretation Comments ABO/Rh (test code = ABO/Rh) O POS [facility] [id number] 17:31:00 Test Item Value Reference Range Interpretation Comments Antibody Scrn (test Negative (10/02/21 code = Antibody Scrn) 11:31 AM) [facility] [employer] [id number] 17:31:00 Test Item Value Reference Range Interpretation Comments Glucose Lvl (test code = Glucose Lvl) 92 70-99 [facility] [id number] 17:31:00 Test Item Value Reference Range Interpretation Comments BUN (test code = BUN) 17 03-02 [facility] [id number] 17:31:00 Test Item Value Reference Range Interpretation Comments Creatinine Lvl (test code = Creatinine 1.21 0.50-1.40 Lvl) [facility] [id number] 17:31:00 Test Item Value Reference Range Interpretation Comments Sodium Lvl (test code = Sodium Lvl) 140 135-145 [facility] [id number] 17:31:00 Test Item Value Reference Range Interpretation Comments Potassium Lvl (test code = Potassium 4.2 3.5-5.1 Lvl) [facility] [id number] 17:31:00 Test Item Value Reference Range Interpretation Comments Chloride Lvl (test code = Chloride Lvl) 108 95-109 [facility] [id number] 17:31:00 Test Item Value Reference Range Interpretation Comments CO2 (test code = CO2) 26 24-32 [facility] [employer]2022-02-21 17:31:00 Test Item Value Reference Range Interpretation Comments Calcium Lvl (test code = Calcium Lvl) 9.4 8.5-10.5 [facility] [id number] 17:31:00 Test Item Value Reference Range Interpretation Comments AGAP (test code = AGAP) 10.2 10.0-20.0 [facility] [id number] 17:31:00 Test Item Value Reference Range Interpretation Comments eGFR (test code = eGFR) 74 [place] 273712-02-21 17:31:00 Test Item Value Reference Range Interpretation Comments PTT (test code = PTT) 28.1 s 22.9-35.8 [place] [address]-02-21 17:31:00 Test Item Value Reference Range Interpretation Comments PT (test code = PT) 11.8 s 12.0-14.7 [place] [address]-02-21 17:31:00 Test Item Value Reference Range Interpretation Comments INR (test code = INR) 0.87 1 0.85-1.17 [place] [address]-02-21 17:31:00 Test Item Value Reference Range Interpretation Comments WBC (test code = WBC) 5.4 3.7-10.4 [place] [address]-02-21 17:31:00 Test Item Value Reference Range Interpretation Comments RBC (test code = RBC) 4.90 4.70-6.10 [place] [address]-02-21 17:31:00 Test Item Value Reference Range Interpretation Comments Hgb (test code = Hgb) 13.7 14.0-18.0 [place] [address]-02-21 17:31:00 Test Item Value Reference Range Interpretation Comments Hct (test code = Hct) 42.0 42.0-54.0 [place] [address]-02-21 17:31:00 Test Item Value Reference Range Interpretation Comments MCV (test code = MCV) 85.6 80.0-94.0 [place] [address]-02-21 17:31:00 Test Item Value Reference Range Interpretation Comments MCH (test code = MCH) 27.9 pg 27.0-31.0 [place] [address]-02-21 17:31:00 Test Item Value Reference Range Interpretation Comments MCHC (test code = MCHC) 32.6 32.0-36.0 [place] [address]-02-21 17:31:00 Test Item Value Reference Range Interpretation Comments RDW (test code = RDW) 14.1 11.5-14.5 [place] [address]-02-21 17:31:00 Test Item Value Reference Range Interpretation Comments Platelet (test code = Platelet) 173 133-450 [place] 273712-02-21 17:31:00 Test Item Value Reference Range Interpretation Comments MPV (test code = MPV) 10.1 7.4-10.4 [place] 273712-02-21 17:31:00 Test Item Value Reference Range Interpretation Comments Segs (test code = Segs) 54.1 45.0-75.0 [place] 273712-02-21 17:31:00 Test Item Value Reference Range Interpretation Comments Lymphocytes (test code = Lymphocytes) 30.9 20.0-40.0 [place] 273712-02-21 17:31:00 Test Item Value Reference Range Interpretation Comments Monocytes (test code = Monocytes) 6.7 2.0-12.0 [place] 273712-02-21 17:31:00 Test Item Value Reference Range Interpretation Comments Eosinophils (test code = 7.7 See_Comment [A utomated message] The Eosinophils) system which ge nerated this result tra nsmitted reference range : <=4.0. The reference r caleb was not used to int erpret this result as normal/abnormal . [place] 273712-02-21 17:31:00 Test Item Value Reference Range Interpretation Comments Basophils (test code = 0.6 See_Comment [Aut omated message] The Basophils) system which ge nerated this result tra nsmitted reference range : <=1.0. The reference r caleb was not used to int erpret this result as normal/abnormal . [facility]icsPsbgizbKQHERQALJK1252-15-65 17:31:00 Test Item Value Reference Range Interpretation Comments Neutrophils # (test code = Neutrophils 2.9 1.5-8.1 #) [place] 273712-02-21 17:31:00 Test Item Value Reference Range Interpretation Comments Lymphocytes # (test code = Lymphocytes 1.7 1.0-5.5 #) [place] 273712-02-21 17:31:00 Test Item Value Reference Range Interpretation Comments Monocytes # (test code 0.4 See_Comment [Aut omated message] The = Monocytes #) system which generated this result tra nsmitted reference range : <=0.8. The reference r caleb was not used to int erpret this result as normal/abnormal . [place] [address]-02-21 17:31:00 Test Item Value Reference Range Interpretation Comments Eosinophils # (test code 0.4 See_Comment [A utomated message] The = Eosinophils #) system whic h generated this result tra nsmitted reference range : <=0.5. The reference r caleb was not used to int erpret this result as normal/abnormal . [facility]ennialIsgyyzpQJGHSKZRIS2189-47-96 17:31:00 Test Item Value Reference Range Interpretation Comments Coronavirus (COVID-19) Not Detected (10/02/21 LIZBETH (test code = 11:31 AM) Coronavirus (COVID-19) LIZBETH) [facility] [id number] 17:31:00 Test Item Value Reference Range Interpretation Comments Hgb A1C (test code = Hgb A1C) 5.7 [facility]icsYsbifzlNPGGJFUTWK3887-64-65 07:37:00 Test Item Value Reference Range Interpretation Comments Sed Rate (test code = 2 See_Comment [Auto mated message] The Sed Rate) system which ge nerated this result transmit leydi reference range : <=15. The reference range was not used to interpr et this result as krishna l/abnormal. [facility] CentennialQlfujclTGBFMUGFSC8697-07-50 07:37:00 Test Item Value Reference Range Interpretation Comments C-REACTIVE PROTEIN (test code = 8.4 C-REACTIVE PROTEIN) [facility]icsOfxuzdfXGAICWGKDM9155-53-96 07:37:00 Test Item Value Reference Range Interpretation Comments Sed Rate (test code = 2 See_Comment [Auto mated message] The Sed Rate) system which ge nerated this result transmit leydi reference range : <=15. The reference range was not used to interpr et this result as krishna l/abnormal. [facility] CentennialXdijbqmUROUKTDLJD7136-41-11 07:37:00 Test Item Value Reference Range Interpretation Comments C-REACTIVE PROTEIN (test code = 8.4 C-REACTIVE PROTEIN) [facility]ennial[facility] [id number] 01:10:00 Test Item Value Reference Range Interpretation Comments Glucose Lvl (test code = Glucose Lvl) 115 70-99 [facility] [id number] 01:10:00 Test Item Value Reference Range Interpretation Comments BUN (test code = BUN) 13 7-22 [facility] [id number] 01:10:00 Test Item Value Reference Range Interpretation Comments Creatinine Lvl (test code = Creatinine 1.21 0.50-1.40 Lvl) [place] 158961-09-30 01:10:00 Test Item Value Reference Range Interpretation Comments Sodium Lvl (test code = Sodium Lvl) 141 135-145 [place] 158961-09-30 01:10:00 Test Item Value Reference Range Interpretation Comments Potassium Lvl (test code = Potassium 3.8 3.5-5.1 Lvl) [place] 158961-09-30 01:10:00 Test Item Value Reference Range Interpretation Comments Chloride Lvl (test code = Chloride Lvl) 110 95-109 [place] 158961-09-30 01:10:00 Test Item Value Reference Range Interpretation Comments CO2 (test code = CO2) 25 24-32 [place] 158961-09-30 01:10:00 Test Item Value Reference Range Interpretation Comments Calcium Lvl (test code = Calcium Lvl) 9.1 8.5-10.5 [place] 158961-09-30 01:10:00 Test Item Value Reference Range Interpretation Comments AGAP (test code = AGAP) 9.8 10.0-20.0 [place] 158961-09-30 01:10:00 Test Item Value Reference Range Interpretation Comments eGFR (test code = eGFR) 74 [place] 273711-09-30 01:10:00 Test Item Value Reference Range Interpretation Comments WBC X 10x3 (test code = WBC X 10x3) 5.9 3.7-10.4 [place] 273711-09-30 01:10:00 Test Item Value Reference Range Interpretation Comments RBC X 10x6 (test code = RBC X 10x6) 4.92 4.70-6.10 [place] 273711-09-30 01:10:00 Test Item Value Reference Range Interpretation Comments Hgb (test code = Hgb) 13.8 14.0-18.0 [place] 273711-09-30 01:10:00 Test Item Value Reference Range Interpretation Comments Hct (test code = Hct) 41.8 42.0-54.0 [place] 273711-09-30 01:10:00 Test Item Value Reference Range Interpretation Comments MCV (test code = MCV) 84.9 80.0-94.0 [facility]icsUtokwprKMOVYTUFAV0956-14-78 01:10:00 Test Item Value Reference Range Interpretation Comments MCH (test code = MCH) 28.0 pg 27.0-31.0 [facility]icsLccepbqTKKCWROPDK7810-45-24 01:10:00 Test Item Value Reference Range Interpretation Comments MCHC (test code = MCHC) 33.0 32.0-36.0 [facility]icsBtluybyFKDEDEQQUT5949-25-63 01:10:00 Test Item Value Reference Range Interpretation Comments RDW (test code = RDW) 14.0 11.5-14.5 [facility]icsVloifrnPRPGGQQFOB4019-28-29 01:10:00 Test Item Value Reference Range Interpretation Comments Platelet (test code = Platelet) 171 133-450 [facility]icsUaysrxcDQCDXYMYVV9411-34-50 01:10:00 Test Item Value Reference Range Interpretation Comments MPV (test code = MPV) 8.8 7.4-10.4 [facility]icsSjhmkqxXYEAOHCACE4032-24-33 01:10:00 Test Item Value Reference Range Interpretation Comments Segs (test code = Segs) 42.2 45.0-75.0 [facility]icsPhbptuvKMGJXDPCTV4760-34-82 01:10:00 Test Item Value Reference Range Interpretation Comments Lymphocytes (test code = Lymphocytes) 37.9 20.0-40.0 [facility]icsUtwyfdaXKXWRIRQIY4594-38-62 01:10:00 Test Item Value Reference Range Interpretation Comments Monocytes (test code = Monocytes) 7.0 2.0-12.0 [facility] ClinicsPuddopyWQKIRDQRYT7336-29-96 01:10:00 Test Item Value Reference Range Interpretation Comments Eosinophils (test code = 11.6 See_Comment [A utomated message] The Eosinophils) system which ge nerated this result tra nsmitted reference range : <=4.0. The reference r caleb was not used to int erpret this result as normal/abnormal . [facility] ClinicsLwolmhhGXKIZSHDHZ3188-05-66 01:10:00 Test Item Value Reference Range Interpretation Comments Basophils (test code = 1.3 See_Comment [Aut omated message] The Basophils) system which ge nerated this result tra nsmitted reference range : <=1.0. The reference r caleb was not used to int erpret this result as normal/abnormal . [place] 273711-09-30 01:10:00 Test Item Value Reference Range Interpretation Comments Neutrophils # (test code = Neutrophils 2.5 1.5-8.1 #) [place] 273711-09-30 01:10:00 Test Item Value Reference Range Interpretation Comments Lymphocytes # (test code = Lymphocytes 2.2 1.0-5.5 #) [place] 273711-09-30 01:10:00 Test Item Value Reference Range Interpretation Comments Monocytes # (test code 0.4 See_Comment [Aut omated message] The = Monocytes #) system which generated this result tra nsmitted reference range : <=0.8. The reference r caleb was not used to int erpret this result as normal/abnormal . [place] 273711-09-30 01:10:00 Test Item Value Reference Range Interpretation Comments Eosinophils # (test code 0.7 See_Comment [A utomated message] The = Eosinophils #) system whic h generated this result tra nsmitted reference range : <=0.5. The reference r caleb was not used to int erpret this result as normal/abnormal . [place] 273711-09-30 01:10:00 Test Item Value Reference Range Interpretation Comments Basophils # (test code 0.1 See_Comment [Aut omated message] The = Basophils #) system which generated this result tra nsmitted reference range : <=0.2. The reference r caleb was not used to int erpret this result as normal/abnormal . [place] 158961-09-30 01:10:00 Test Item Value Reference Range Interpretation Comments Glucose Lvl (test code = Glucose Lvl) 115 70-99 [place] 158961-09-30 01:10:00 Test Item Value Reference Range Interpretation Comments BUN (test code = BUN) 13 7-22 [place] 158961-09-30 01:10:00 Test Item Value Reference Range Interpretation Comments Creatinine Lvl (test code = Creatinine 1.21 0.50-1.40 Lvl) [place] 158961-09-30 01:10:00 Test Item Value Reference Range Interpretation Comments Sodium Lvl (test code = Sodium Lvl) 141 135-145 [place] 158961-09-30 01:10:00 Test Item Value Reference Range Interpretation Comments Potassium Lvl (test code = Potassium 3.8 3.5-5.1 Lvl) [place] 158961-09-30 01:10:00 Test Item Value Reference Range Interpretation Comments Chloride Lvl (test code = Chloride Lvl) 110 95-109 [place] 158961-09-30 01:10:00 Test Item Value Reference Range Interpretation Comments CO2 (test code = CO2) 25 24-32 [place] 158961-09-30 01:10:00 Test Item Value Reference Range Interpretation Comments Calcium Lvl (test code = Calcium Lvl) 9.1 8.5-10.5 [place] 158961-09-30 01:10:00 Test Item Value Reference Range Interpretation Comments AGAP (test code = AGAP) 9.8 10.0-20.0 [place] 158961-09-30 01:10:00 Test Item Value Reference Range Interpretation Comments eGFR (test code = eGFR) 74 [place] 273711-09-30 01:10:00 Test Item Value Reference Range Interpretation Comments WBC X 10x3 (test code = WBC X 10x3) 5.9 3.7-10.4 [place] 273711-09-30 01:10:00 Test Item Value Reference Range Interpretation Comments RBC X 10x6 (test code = RBC X 10x6) 4.92 4.70-6.10 [place] 273711-09-30 01:10:00 Test Item Value Reference Range Interpretation Comments Hgb (test code = Hgb) 13.8 14.0-18.0 [place] 273711-09-30 01:10:00 Test Item Value Reference Range Interpretation Comments Hct (test code = Hct) 41.8 42.0-54.0 [place] 273711-09-30 01:10:00 Test Item Value Reference Range Interpretation Comments MCV (test code = MCV) 84.9 80.0-94.0 [place] [id number] 01:10:00 Test Item Value Reference Range Interpretation Comments MCH (test code = MCH) 28.0 pg 27.0-31.0 [place] 273711-09-30 01:10:00 Test Item Value Reference Range Interpretation Comments MCHC (test code = MCHC) 33.0 32.0-36.0 [id number] 01:10:00 Test Item Value Reference Range Interpretation Comments RDW (test code = RDW) 14.0 11.5-14.5 [id number] 01:10:00 Test Item Value Reference Range Interpretation Comments Platelet (test code = Platelet) 171 133-450 [id number] 01:10:00 Test Item Value Reference Range Interpretation Comments MPV (test code = MPV) 8.8 7.4-10.4 [place] 273711-09-30 01:10:00 Test Item Value Reference Range Interpretation Comments Segs (test code = Segs) 42.2 45.0-75.0 [place] 273711-09-30 01:10:00 Test Item Value Reference Range Interpretation Comments Lymphocytes (test code = Lymphocytes) 37.9 20.0-40.0 [place] 273711-09-30 01:10:00 Test Item Value Reference Range Interpretation Comments Monocytes (test code = Monocytes) 7.0 2.0-12.0 [id number] 01:10:00 Test Item Value Reference Range Interpretation Comments Eosinophils (test code = 11.6 See_Comment [A utomated message] The Eosinophils) system which ge nerated this result tra nsmitted reference range : <=4.0. The reference r caleb was not used to int erpret this result as normal/abnormal . [id number] 01:10:00 Test Item Value Reference Range Interpretation Comments Basophils (test code = 1.3 See_Comment [Aut omated message] The Basophils) system which ge nerated this result tra nsmitted reference range : <=1.0. The reference r caleb was not used to int erpret this result as normal/abnormal . [id number] 01:10:00 Test Item Value Reference Range Interpretation Comments Neutrophils # (test code = Neutrophils 2.5 1.5-8.1 #) [id number] 01:10:00 Test Item Value Reference Range Interpretation Comments Lymphocytes # (test code = Lymphocytes 2.2 1.0-5.5 #) [place] 273711-09-30 01:10:00 Test Item Value Reference Range Interpretation Comments Monocytes # (test code 0.4 See_Comment [Aut omated message] The = Monocytes #) system which generated this result tra nsmitted reference range : <=0.8. The reference r caleb was not used to int erpret this result as normal/abnormal . [id number] 01:10:00 Test Item Value Reference Range Interpretation Comments Eosinophils # (test code 0.7 See_Comment [A utomated message] The = Eosinophils #) system whic h generated this result tra nsmitted reference range : <=0.5. The reference r caleb was not used to int erpret this result as normal/abnormal . [id number] 01:10:00 Test Item Value Reference Range Interpretation Comments Basophils # (test code 0.1 See_Comment [Aut omated message] The = Basophils #) system which generated this result tra nsmitted reference range : <=0.2. The reference r caleb was not used to int erpret this result as normal/abnormal . [facility] [id number] 18:20:00 Test Item Value Reference Range Interpretation Comments eGFR (test code = eGFR) 90 [facility] [id number] 18:20:00 Test Item Value Reference Range Interpretation Comments AGAP (test code = AGAP) 4.2 10.0-20.0 [facility] [id number] 18:20:00 Test Item Value Reference Range Interpretation Comments Calcium Lvl (test code = Calcium Lvl) 8.6 8.5-10.5 [facility] [id number] 18:20:00 Test Item Value Reference Range Interpretation Comments CO2 (test code = CO2) 30 24-32 [facility] [id number] 18:20:00 Test Item Value Reference Range Interpretation Comments Chloride Lvl (test code = Chloride Lvl) 109 95-109 [facility] [id number] 18:20:00 Test Item Value Reference Range Interpretation Comments Potassium Lvl (test code = Potassium 4.2 3.5-5.1 Lvl) [facility]2018-11-27 18:20:00 Test Item Value Reference Range Interpretation Comments Sodium Lvl (test code = Sodium Lvl) 139 135-145 [facility]2018-11-27 18:20:00 Test Item Value Reference Range Interpretation Comments Glucose Lvl (test code = Glucose Lvl) 111 70-99 [facility]2018-11-27 18:20:00 Test Item Value Reference Range Interpretation Comments BUN (test code = BUN) 18 - [facility]2018-11-27 18:20:00 Test Item Value Reference Range Interpretation Comments Creatinine Lvl (test code = Creatinine 1.18 0.50-1.40 Lvl) [facility]2018-11-27 18:20:00 Test Item Value Reference Range Interpretation Comments eGFR (test code = eGFR) 90 [facility]2018-11-27 18:20:00 Test Item Value Reference Range Interpretation Comments AGAP (test code = AGAP) 4.2 10.0-20.0 [facility]2018-11-27 18:20:00 Test Item Value Reference Range Interpretation Comments Calcium Lvl (test code = Calcium Lvl) 8.6 8.5-10.5 [facility]2018-11-27 18:20:00 Test Item Value Reference Range Interpretation Comments CO2 (test code = CO2) 30 24-32 [facility]2018-11-27 18:20:00 Test Item Value Reference Range Interpretation Comments Chloride Lvl (test code = Chloride Lvl) 109 95-109 [facility]2018-11-27 18:20:00 Test Item Value Reference Range Interpretation Comments Potassium Lvl (test code = Potassium 4.2 3.5-5.1 Lvl) [facility]2018-11-27 18:20:00 Test Item Value Reference Range Interpretation Comments Sodium Lvl (test code = Sodium Lvl) 139 135-145 [facility]2018-11-27 18:20:00 Test Item Value Reference Range Interpretation Comments Glucose Lvl (test code = Glucose Lvl) 111 70-99 [facility]2018-11-27 18:20:00 Test Item Value Reference Range Interpretation Comments BUN (test code = BUN) 18 7- [facility]2018-11-27 18:20:00 Test Item Value Reference Range Interpretation Comments Creatinine Lvl (test code = Creatinine 1.18 0.50-1.40 Lvl) [facility][U] XRAY ELBOW 2 VWS RIGHT [id number] 15:57:00Images acquired, not reported on this accession number.[facility][U] XRAY WRIST MIN 3 VWS RIGHT [id number] 15:57:00Images acquired, not reported on this accession number.[facility] Notes Date/Time Note Provider Source 2022-09-20 EXAM: CT TEMPORAL BONE WITHOUT CONTRAST RHODA Cedeño 13:55:00-00:00 DATE: 09/20/2022 INDICATION: - G96.01 Cranial [...] bone. 2022-05-19 EXAM: XR CHEST 1 VIEW [facility] 00:44:00-00:00 DATE: 05/19/2022 0:00 Center INDICATION: - inc O2 requriements COMPARISON: Chest x-ray dated 05/18/2022 TECHNIQUE: AP chest, portable radiograph IMPRESSION: 1. Cardiomediastinal silhouette is normal in siz e and contour. 2. Lung volumes are low comp ared to prior study. No parenchymal consolidation. No pleural effusion. No perceptible pneumothorax. 3. No acute osseous abnormality. 4. Right side BULBS FARMWORKER shunt tube superimposing over the right side of the neck and chest. 2022-05-18 EXAM: CTA CHEST WITH CONTRAST [facility] 21:20:00-00:00 DATE: 05/18/2022 20:21 Center INDICATION: diaphoresis, tahcycardia, COMPARISON: None TECHNIQUE: Volumetric CT of the chest is acquired during pulmonary arterial phase following intravenous administration of contrast. Axial, sagittal, coronal, and oblique MIP reconstructions are created at the acquisition workstation. FINDINGS: Hand Roller: Noncontributory. Lines and tubes: BULBS FARMWORKER shunt co urses along the anterior right [...] EXAM: CT ABDOMEN AND PELVIS WITH CONTRAST [facility] 21:20:00-00:00 DATE: 05/18/2022 20:21 Center INDICATION: - [...] mSv COMPLICATIONS: None FINDINGS: Lines and tubes: BULBS FARMWORKER shunt ca theter extends to the right [...] No CSF-navneet at the tip of the BULBS FARMWORKER shunt catheter. Lymph nodes: Reactive peripo rtal [...] 3. No intraperitoneal collections. No CSFoma at BULBS FARMWORKER shunt tip. 4. Too small to characterize hepatic hypodensity . 5. 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 6. Please see concurrent [facility] CT report for more details of thoracic findings. 2022-05-18 EXAM: CT HEAD WITHOUT CONTRAST [facility] 21:20:00-00:00 DATE: 05/18/2022 20:21 Center INDICATION: 41 [...] ity. 2022-05-18 [facility] DATE: 05/18/2022 15:19 Center INDICATION: - [...] EPIDURAL BLOOD PATCH WITH FLUO ROSCOPIC GUIDANCE [facility] 12:03:37-00:00 DATE: 05/18/2022 14:36 Center INDICATION: '-blood [...] EPIDURAL BLOOD PATCH WITH FLUO ROSCOPIC GUIDANCE [facility] 09:00:00-00:00 DATE: 05/17/2022 16:48 Center INDICATION: 'Other- [...] Dr. Jamal Stephenson with neurosurgery nurse practitioner procurement professional logistics pager, and with neurosurgery resident Dr. Morales, [...] complaint. 2022-05-12 EXAM: MRI BRAIN WITHOUT CONTRAST [facility] 05:56:00-00:00 DATE: 05/12/2022 Center INDICATION: - headache. Outs debbie brain magnetic resonance imaging submitted for 2nd opinion. COMPARISON: Head CTs dated from 05/10/2021 to TECHNIQUE: Brain magnetic re sonance imaging performed at [facility] on 05/11/2022. IV contrast: None. FINDINGS: Artifact along the right fro ntoparietal region is observed secondary to extracranial BULBS FARMWORKER shunt system. Redemonstrated right frontal approach ventriculostomy [...] Kelvin Pate MD On 10/26/2021 18:10:05; KENZIE [id number] 2021-10-18 EXAM: XR ABDOMEN 4 VIEWS RHODA Cedeño 11:56:35-00:00 DATE: 10/18/2021 11:55 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 INDICATION: - R10.30 Lower abdominal pain, unspe [...] in appearance. A portion of a right-sided BULBS FARMWORKER shunt catheter is visualized Bowel: Nonobstructive bowel gas pattern. No pneu matosis is seen. Free air: None Solid organs: No abnormal ma ss or organomegaly seen. No abnormal intra- abdominal calcifications are seen. Bones: No acute abnormalities. IMPRESSION: 1. Right-sided BULBS FARMWORKER shunt cath eter in place looped upon itself in the right upper quadrant and terminating in the left upper quadrant. 2. Bowel gas pattern is nonobstructive. No free air is seen. 2021-10-08 EXAM: CT ABDOMEN AND PELVIS WITH CONTRAST [facility] 20:09:19-00:00 DATE: 10/08/2021 20:06 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 Center INDICATION: - outside films/BULBS FARMWORKER shunt displacemen t ADDITIONAL INFORMATION: None. COMPARISON: None. TECHNIQUE: Volumetric CT of the abdomen and pelvis acquired following the intravenous administration of contrast. Axial, coronal and sagittal images are provided. IV contrast: Refer to MAR/ct scan special procedures technologist docume ntation Enteric contrast: None. DLP (mGy-cm): Refer to MAR/ct scan special procedures technologist docum entation FINDINGS: Hand Roller: Noncontributory. Lines, tubes and hardware: R ight sided BULBS FARMWORKER shunt with the distal tip terminating in [...] in the region of the distal, malpositioned BULBS FARMWORKER shunt in the right lower quadrant abdominal soft tissues with associated fluid miguel ection measuring approximately 8.2 x 5.4 x 3.9 c m (transverse, AP, CC). IMPRESSION: Malpositioned BULBS FARMWORKER catheter wi th the distal tip in the right upper quadrant ventral abdominal soft tissues with associated fluid collection. 2021-10-08 Critical finding of new left frontal lobe hypoattenuation along the right frontal shunt catheter possibly textile machinery sales representative of an infectious process was communicated to and acknowledged by Trenton Mcfadden at 10/08/2021 21:26 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 by Armond Sultana MD. [facility] 20:09:12-00:00 EXAM: CT BRAIN WITHOUT CONTRAST Center DATE: 10/08/2021 20:07 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 INDICATION: - outside films/BULBS FARMWORKER shunt displacemen t COMPARISON: CT brain 10/04/2021. [...] evaluation. 2021-10-04 EXAM: CT BRAIN WITHOUT CONTRAST [facility] 08:34:12-00:00 DATE: 10/04/2021 Center INDICATION: ' - [...] transfrontal shunt catheter. 2021-10-03 Exam: Shunt series. [facility] I Do Now I Don't ical 21:24:18-00:00 DATE: 10/03/2021. Center INDICATION: Evaluate [...] kinking. 2021-10-03 EXAM: CT BRAIN WITHOUT CONTRAST [facility] 08:36:56-00:00 DATE: 10/03/2021 0840 hours Cente r [...] 2021-05-11 EXAM: CT TEMPORAL BONE WITH CONTRAST [facility] 02:14:01-00:00 DATE: 05/11/2021 Center INDICATION: - Pt [...] thrombosis. 2021-05-10 EXAM: CT BRAIN WITHOUT CONTRAST [facility] 22:34:45-00:00 DATE: 05/10/2021 22:24 CDT Center INDICATION: [...]
[2023-03-08 15:18] LABS: Protime INR 0.99
[2023-03-08 15:24] LABS: Hematocrit 39.2 % (39.6-49.0); Lymphocytes % 36.1 % (15.3-44.8); MPV 9.2 fL (7.6-11.3); RBC Red Blood Cell Count 4.61 M/uL (4.33-5.43)
[2023-03-08] MEDS ORDERED: HYDROMORPHONE HCL 1 MG/ML INJ ONE ×2 (15:28→16:06)
[2023-03-08] MEDS ORDERED: ONDANSETRON 4 MG/2 ML VIAL ONE (15:28)
[2023-03-08] MEDS ORDERED: CEFTRIAXONE 1000 MG/VIAL ONE (15:28)
[2023-03-08] MEDS ORDERED: NA CHLORIDE 0.9% 1,000 ML ONE (15:28)
[2023-03-08 15:29] LABS: ALT/SGPT 53 U/L (16-61); Albumin 3.4 g/dL (3.4-5.0); Alkaline Phosphatase 124 U/L (45-117); BUN Blood Urea Nitrogen 14 mg/dL (7-18); Bicarbonate 24 mEq/L (21-32); Bilirubin Total 0.2 mg/dL (0.2-1.0); Glomerular Filtration Rate 85 ml/min (=/>90); Glucose Level 108 mg/dL (74-106); NT PRO-BNP 50 pg/mL (<125); Protein, Total 7.1 g/dL (6.4-8.2); Sodium Level 140 mEq/L (136-145); Troponin High Sensitivity 8.2 pg/mL (<58.9)
[2023-03-08] MEDS ORDERED: NA CHLORIDE 0.9% 50 ML ONE (15:29)
[2023-03-08 15:34] LABS: AST/SGOT 23 U/L (15-37); Bilirubin Direct < 0.1 mg/dL (0-0.2); Bilirubin Indirect, Calculated ND mg/dL (0.2-0.8); Magnesium 2.2 mg/dL (1.6-2.4); Potassium 4.4 mEq/L (3.5-5.1)
--- NOTE | 2023-03-08 15:49 | RAD REPORT ---
EXAM DESCRIPTION: CT - Head Brain Wo Cont - 03/08/2023 3:23 pm CLINICAL HISTORY: Headache COMPARISON: March 04, 2023 and 2021 TECHNIQUE: Computed axial tomography of the head was obtained. IV contrast was not requested. All CT scans are performed using dose optimization technique as appropriate and may include automated exposure control or mA/KV adjustment according to patient size. FINDINGS: Postoperative changes left mastoids again demonstrated. Fluid is present within residual m astoid air cells. Right ventricular shunt in place. Split ventricles unchanged No extra-axial fluid collection. No significant hypodensity within the brain No intracranial bleed IMPRESSION: Postoperative changes left mastoids Slip ventricles unchanged
--- NOTE | 2023-03-08 16:06 | ER ---
Nurse's Notes [facility] Name: Terry Akins Sr Age: 42 yrs Sex: Male : 1980 Arrival Date: 03/08/2023 Time: 14:31 Bed 2 Private MD: Diagnosis: Otalgia, left ear-SP SURGERY;Essential (primary) hypertension Presentation: 03/08 14:45 Chief complaint: Had mastoid sx 02/[address] Therese Tang at , reports sudden onset hb severe left sided facial pain followed by numbness that started at approx 1420 today. Coronavirus screen: At this time, the client does not indicate any symptoms associated with coronavirus-19. Ebola Screen: No symptoms or risks identified at this time. Initial Sepsis Screen: Does the patient meet any 2 criteria? No. Patient's initial sepsis screen is negative. Does the patient have a suspected source of infection? No. Patient's initial sepsis screen is negative. Risk Assessment: Do you want to hurt yourself or someone else? Patient reports no desire to harm self or others. Onset of symptoms was March 08, 2023. 14:45 Method Of Arrival: Ambulatory hb 14:45 Acuity: SARITHA 3 hb Historical: - Allergies: 14:37 No Known Allergies; hb - Immunization history:: Adult Immunizations up to date. - Social history:: Smoking status: . Screenin:48 [facility] ED Fall Risk Assessment (Adult) History of falling in the last 3 months, cm10 including since admission No falls in past 3 months (0 pts) Confusion or Disorientation No (0 pts) Intoxicated or Sedated No (0 pts) Impaired Gait No (0 pts) Mobility Assist Device Used No (0 pt) Altered Elimination No (0 pt) Score/Fall Risk Level 0 - 2 = Low Risk Oriented to surroundings, Maintained a safe environment, Hourly rounding (assess needs \T\ fall precautionary measures) done. Abuse screen: Denies threats or abuse. Denies injuries from another. Nutritional screening: No deficits noted. Tuberculosis screening: No symptoms or risk factors identified. Assessment: 15:48 General: Appears in no apparent distress. uncomfortable, Behavior is calm, cooperative. cm10 Pain: Complains of pain in left base of the skull and left zygomatic area and left uatsdin and left occipital area and left temporal area and left ear Pain currently is 12 out of 10 on a pain scale. Neuro: No deficits noted. Level of Consciousness is awake, alert, obeys commands, Oriented to person, place, time, situation, Numbness in left ear and left cheek. Cardiovascular: No deficits noted. Capillary refill < 3 seconds Rhythm is sinus rhythm. Respiratory: No deficits noted. Airway is patent Respiratory effort is even, unlabored, Respiratory pattern is regular, symmetrical. EENT: Reports pain in left ear. Vital Signs: 14:45 BP 154 / 104; Pulse 91; Resp 18; Temp 98.6; Pulse Ox 100% on R/A; Weight 154.22 kg; hb Height 6 ft. 3 in. ; Pain 10/10; 15:22 BP 149 / 87; Pulse 77; Resp 16; Pulse Ox 97% ; cm10 15:30 BP 133 / 80; Pulse 71; Resp 16; Pulse Ox 97% on R/A; cm10 16:00 BP 138 / 73; Pulse 63; Resp 16; Pulse Ox 96% on R/A; cm10 16:30 BP 130 / 97; Pulse 59; Resp 16; Pulse Ox 96% on R/A; cm10 14:45 Body Mass Index 42.50 (154.22 kg, 190.5 cm) hb 14:45 Pain Scale: Adult hb Omar Coma Score: 15:09 Eye Response: spontaneous(4). Motor Response: obeys commands(6). Verbal Response: sin oriented(5). Total: 15. 15:12 Eye Response: spontaneous(4). Motor Response: obeys commands(6). Verbal Response: sin oriented(5). Total: 15. ED Course: 14:37 Patient arrived in ED. hb 14:48 Triage completed. hb 14:48 Arm band placed on. hb 14:50 Roxanne Cage, RN is Primary Nurse. cm10 14:51 Talon Whitt MD is Attending Physician. sin 15:01 Basic Metabolic Panel Sent. cm10 15:01 CBC with Diff Sent. cm10 15:01 LFT's Sent. cm10 15:01 Magnesium Sent. cm10 15:01 NT PRO-BNP Sent. cm10 15:01 PT-INR Sent. cm10 15:01 Troponin HS Sent. cm10 15:02 Initial lab(s) drawn, by me, sent to lab. Inserted saline lock: 18 gauge in right cm10 forearm, using aseptic technique. Blood collected. 15:24 CT Head Brain wo Cont In Process Unspecified. EDMS 15:48 Patient has correct armband on for positive identification. Bed in low position. Call cm10 light in reach. Side rails up X2. Provided Education on: N/A. Client placed on continuous cardiac and pulse oximetry monitoring. NIBP monitoring applied. 15:49 XRAY Chest (1 view) In Process Unspecified. EDMS 16:09 No provider procedures requiring assistance completed. cm10 16:45 IV discontinued, intact, bleeding controlled, No redness/swelling at site. Pressure cm10 dressing applied. Administered Medications: 15:32 Drug: NS 0.9% IV 1000 ml Route: IV; Rate: 125 ml/hr; Site: right forearm; cm10 15:32 Drug: HYDROmorphone IVP 1 mg Route: IVP; Site: right forearm; cm10 15:47 Follow up: Response: No adverse reaction; Pain is unchanged, physician notified cm10 15:32 Drug: Ondansetron IVP 4 mg Route: IVP; Site: right forearm; cm10 15:47 Follow up: Response: No adverse reaction cm10 15:32 Drug: Rocephin IV 1 grams Route: IV; Rate: per protocol; Site: right forearm; cm10 15:47 Follow up: Response: No adverse reaction; IV Status: Completed infusion; IV Intake: [id number] 15:59 Drug: HYDROmorphone IVP 1 mg Route: IVP; Site: right forearm; cm10 16:44 Follow up: Response: No adverse reaction; Pain is decreased cm10 16:44 Drug: Amoxicillin-Clavulanate PO 875 mg Route: PO; cm10 16:44 Follow up: Response: No adverse reaction cm10 Medication: 15:50 VIS not applicable for this client. cm10 Intake: 15:47 IV: 50ml; Total: 50ml. cm10 Outcome: 16:06 Discharge ordered by . sin 16:45 Discharged to home ambulatory, with family. cm10 16:45 Condition: good 16:45 Discharge instructions given to patient, Instructed on discharge instructions, follow up and referral plans. medication usage, Demonstrated understanding of instructions, follow-up care, medications, Prescriptions given X 2. 16:46 Patient left the ED. cm10 Signatures: Dispatcher [employer] Talon Vargas MD MD cha Baxter, Heather, RN RN hb Martinez, Clarissa, RN RN cm10
--- NOTE | 2023-03-08 16:06 | EDPHYS ---
Physician Documentation [facility] Name: Terry Akins Sr Age: 42 yrs Sex: Male : 1980 Arrival Date: 03/08/2023 Time: 14:31 Bed 2 Private MD: NIKOLAS Physician Talon Whitt HPI: 03/08 15:09 This 42 yrs old Black Male presents to ER via Ambulatory with complaints of LEFT EAR sin PAIN, NUMBNESS. 15:09 The patient or guardian reports pain, tenderness. The complaints affect the left ear, sin left temporal area, left occipital area, left hinduism, left zygomatic area and left base of the skull. Context of injury: The problem was sustained at SURGERY 6TH. Onset: The symptoms/episode began/occurred this morning, today. Associated signs and symptoms: Loss of consciousness: This patient did not experience any loss of consciousness. Pertinent positives: headache. The patient presents with pain, tenderness. The complaints affect the left ear, left temporal area, left occipital area, left hinduism and left zygomatic area. Modifying factors: The symptoms are alleviated by nothing, the symptoms are aggravated by nothing. Severity of symptoms: At their worst the symptoms were moderate, in the emergency department the symptoms are unchanged. Severity of symptoms: At their worst the symptoms were moderate in the emergency department the symptoms are unchanged. The patient has experienced similar episodes in the past, several times. Historical: - Allergies: 14:37 No Known Allergies; hb - Immunization history:: Adult Immunizations up to date. - Social history:: Smoking status: . ROS: 15:12 Constitutional: Negative for fever, chills, and weight loss, Eyes: Negative for injury, sin pain, redness, and discharge, Neck: Negative for injury, pain, and swelling, Cardiovascular: Negative for chest pain, palpitations, and edema, Respiratory: Negative for shortness of breath, cough, wheezing, and pleuritic chest pain, Abdomen/GI: Negative for abdominal pain, nausea, vomiting, diarrhea, and constipation, Back: Negative for injury and pain, : Negative for injury, bleeding, discharge, and swelling, MS/Extremity: Negative for injury and deformity, Skin: Negative for injury, rash, and discoloration, Neuro: Negative for headache, weakness, numbness, tingling, and seizure, Psych: Negative for depression, anxiety, suicide ideation, homicidal ideation, and hallucinations, Allergy/Immunology: Negative for hives, rash, and allergies, Endocrine: Negative for neck swelling, polydipsia, polyuria, polyphagia, and marked weight changes, Hematologic/Lymphatic: Negative for swollen nodes, abnormal bleeding, and unusual bruising. 15:12 ENT: Positive for ear pain. Exam: 15:12 Constitutional: This is a well developed, well nourished patient who is awake, alert, sin and in no acute distress. Head/Face: Normocephalic, atraumatic. Eyes: Pupils equal round and reactive to light, extra-ocular motions intact. Lids and lashes normal. Conjunctiva and sclera are non-icteric and not injected. Cornea within normal limits. Periorbital areas with no swelling, redness, or edema. ENT: Nares patent. No nasal discharge, no septal abnormalities noted. Tympanic membranes are normal and external auditory canals are clear. Oropharynx with no redness, swelling, or masses, exudates, or evidence of obstruction, uvula midline. Mucous membranes moist. Neck: Trachea midline, no thyromegaly or masses palpated, and no cervical lymphadenopathy. Supple, full range of motion without nuchal rigidity, or vertebral point tenderness. No Meningismus. Chest/axilla: Normal chest wall appearance and motion. Nontender with no deformity. No lesions are appreciated. Cardiovascular: Regular rate and rhythm with a normal S1 and S2. No gallops, murmurs, or rubs. Normal PMI, no JVD. No pulse deficits. Respiratory: Lungs have equal breath sounds bilaterally, clear to auscultation and percussion. No rales, rhonchi or wheezes noted. No increased work of breathing, no retractions or nasal flaring. Abdomen/GI: Soft, non-tender, with normal bowel sounds. No distension or tympany. No guarding or rebound. No evidence of tenderness throughout. Back: No spinal tenderness. No costovertebral tenderness. Full range of motion. Male : Normal genitalia with no discharge or lesions. Skin: Warm, dry with normal turgor. Normal color with no rashes, no lesions, and no evidence of cellulitis. MS/ Extremity: Pulses equal, no cyanosis. Neurovascular intact. Full, normal range of motion. Neuro: Awake and alert, GCS 15, oriented to person, place, time, and situation. Cranial nerves II-XII grossly intact. Motor strength 5/5 in all extremities. Sensory grossly intact. Cerebellar exam normal. Normal gait. Psych: Awake, alert, with orientation to person, place and time. Behavior, mood, and affect are within normal limits. 15:44 ECG was reviewed by the Attending Physician. sin 15:44 Musculoskeletal/extremity: Exam is negative for DVT Exam: No signs of deep vein thrombosis. no pain, no swelling, no tenderness, negative Homans' sign noted on exam, no appreciated bluish discoloration, no erythema, no increased warmth. Vital Signs: 14:45 BP 154 / 104; Pulse 91; Resp 18; Temp 98.6; Pulse Ox 100% on R/A; Weight 154.22 kg; hb Height 6 ft. 3 in. ; Pain 10/10; 15:22 BP 149 / 87; Pulse 77; Resp 16; Pulse Ox 97% ; cm10 15:30 BP 133 / 80; Pulse 71; Resp 16; Pulse Ox 97% on R/A; cm10 16:00 BP 138 / 73; Pulse 63; Resp 16; Pulse Ox 96% on R/A; cm10 16:30 BP 130 / 97; Pulse 59; Resp 16; Pulse Ox 96% on R/A; cm10 14:45 Body Mass Index 42.50 (154.22 kg, 190.5 cm) hb 14:45 Pain Scale: Adult hb Sawyer Coma Score: 15:09 Eye Response: spontaneous(4). Motor Response: obeys commands(6). Verbal Response: sin oriented(5). Total: 15. 15:12 Eye Response: spontaneous(4). Motor Response: obeys commands(6). Verbal Response: sin oriented(5). Total: 15. MDM: 14:51 Patient medically screened. sin 15:12 Differential diagnosis: Contusion of Hematoma on otitis media, otitis externa. Data [facility] reviewed: vital signs, nurses notes, lab test result(s), EKG, radiologic studies, CT scan, plain films. Consideration of Admission/Observation Escalation of care including admission/observation considered. I considered the following discharge prescriptions or medication management in the emergency department Medications were administered in the Emergency Department. See MAR. Test considered but Not performed: MRI: MRI BRAIN. Historians other than the Patient: PT ONLY , WELL KNOWN. Care significantly affected by the following chronic conditions:. 03/08 14:52 Order name: Basic Metabolic Panel; Complete Time: 15:35 [facility] 03/08 14:52 Order name: CBC with Diff; Complete Time: 15:35 [facility] 03/08 14:52 Order name: LFT's; Complete Time: 15:35 [facility] 03/08 14:52 Order name: Magnesium; Complete Time: 15:35 [facility] 03/08 14:52 Order name: NT PRO-BNP; Complete Time: 15:35 [facility] 03/08 14:52 Order name: PT-INR; Complete Time: 15:35 [facility] 03/08 14:52 Order name: Troponin HS; Complete Time: 15:35 [facility] 03/08 14:52 Order name: XRAY Chest (1 view) 03/08 15:05 Order name: CT Head Brain wo Cont; Complete Time: 16:06 [facility] 03/08 14:52 Order name: EKG; Complete Time: 14:53 [facility] 03/08 14:52 Order name: Cardiac monitoring; Complete Time: 15:45 03/08 14:52 Order name: EKG - Nurse/Tech; Complete Time: 15:45 03/08 14:52 Order name: IV Saline Lock; Complete Time: 15:01 [facility] 03/08 14:52 Order name: Labs collected and sent; Complete Time: 15:01 [facility] 03/08 14:52 Order name: O2 Per Protocol; Complete Time: 15:45 03/08 14:52 Order name: O2 Sat Monitoring; Complete Time: 15:45 [facility] EC:44 Rate is 68 beats/min. Rhythm is regular. QRS Hope is Normal. GA interval is normal. QRS sin interval is normal. QT interval is normal. No Q waves. T waves are Normal. No ST changes noted. Clinical impression: NSR w/ Non-specific ST/T Changes, 1st degree heart block, and No evidence of ischemia. Interpreted by me. Administered Medications: 15:32 Drug: NS 0.9% IV 1000 ml Route: IV; Rate: 125 ml/hr; Site: right forearm; cm10 15:32 Drug: HYDROmorphone IVP 1 mg Route: IVP; Site: right forearm; cm10 15:47 Follow up: Response: No adverse reaction; Pain is unchanged, physician notified cm10 15:32 Drug: Ondansetron IVP 4 mg Route: IVP; Site: right forearm; cm10 15:47 Follow up: Response: No adverse reaction cm10 15:32 Drug: Rocephin IV 1 grams Route: IV; Rate: per protocol; Site: right forearm; cm10 15:47 Follow up: Response: No adverse reaction; IV Status: Completed infusion; IV Intake: [id number] 15:59 Drug: HYDROmorphone IVP 1 mg Route: IVP; Site: right forearm; cm10 16:44 Follow up: Response: No adverse reaction; Pain is decreased cm10 16:44 Drug: Amoxicillin-Clavulanate PO 875 mg Route: PO; cm10 16:44 Follow up: Response: No adverse reaction cm10 Disposition Summary: 03/08/23 16:06 Discharge Ordered Location: Home sin Problem: new sin Symptoms: have improved sin Condition: Stable sin Diagnosis - Otalgia, left ear - SP SURGERY sin - Essential (primary) hypertension sin Followup: sin - With: Private Physician - When: 2 - 3 days - Reason: Recheck today's complaints, Continuance of care, Re-evaluation by your physician Discharge Instructions: - Discharge Summary Sheet sin - Otitis Media, Adult sin - Otitis Media, Adult, [id number] sin - How to Take Your Blood Pressure, [id number] [facility] - Managing Your Hypertension [facility] Forms: - Medication Reconciliation Form [facility] - Thank You Letter sin - Antibiotic Education sin - Prescription Opioid Use sin - Patient Portal Instructions [facility] Prescriptions: - acetaminophen-codeine 300-30 mg Oral tablet - take 2 tablet by ORAL route 4 times per day as needed for pain; 20 tablet; [facility] Refills: 0, Product Selection Permitted - Augmentin 875-125 mg Oral Tablet - take 1 tablet by ORAL route every 12 hours for 10 days; 20 tablet; Refills: 0, [facility] Product Selection Permitted Signatures: Dispatcher [employer] Talon Vargas MD MD cha Baxter, Heather, RN RN hb Martinez, Clarissa, RN RN cm10
--- NOTE | 2023-03-08 16:18 | RAD REPORT ---
EXAM DESCRIPTION: Audie Single View03/08/2023 3:47 pm CLINICAL HISTORY: Chest pain COMPARISON: January 2023 FINDINGS: The lungs appear clear of acute infiltrate. The heart is normal size A [employer] shunt courses the right hemithorax IMPRESSION: No acute abnormalities displayed
[2023-03-08] MEDS ORDERED: AMOX/K CLAV 875 MG TAB ONE (16:47)
[2023-03-08 16:58] VITALS: TEMP 98.6
[2023-03-08 17:01] VITALS: O2SAT 96
[2023-03-08 17:02] VITALS: BP 130/97
--- NOTE | 2023-03-10 13:15 | EKG ---
Test Date: 2023-03-08 Test Time: 15:41:36 Mmd Unit Teacher: GUSTAVO MEASUREMENT RESULTS: Intervals: Rate: 68 AK: 222 QRSD: 86 QT: 386 QTc: 410 Celeste: P: 56 AK: 222 QRS: 12 T: 150 INTERPRETIVE STATEMENTS: Sinus rhythm with 1st degree AV block T wave abnormality, consider lateral ischemia Abnormal ECG Compared to ECG 02/08/2023 20:41:32 No significant changes Electronically Signed On 03-10-23 13:12:19 CDT by Nick Esteban
== END 2023-03-08 16:46 | disposition home or self-care (01) ==
LOC: ER 14:31
DX: H92.02 Otalgia, left ear (principal); I10 Essential (primary) hypertension; Z98.890 Other specified postprocedural states
CPT/HCPCS: 93005; 85025; 80048; 36415; 83735; 85610; 80076; 84484; 83880; 70450; 71045; 96375; 96374; 99284; J1170 ×2; J2405; J7030; J0696

== ENCOUNTER 2023-03-26 13:33 | Emergency (ER) | payer OTHER ==
--- OUTSIDE RECORDS SUMMARY | 2023-03-26 13:48 | XMS REPORT | Continuity of Care Document ---
:1980 Author Organization [facility] t Address [address] [facility] [address] [place] [address] Care Team Providers Name Role Phone Geovanna Foley DO Primary Care Physician John Vazquez Attending Clinician Unavailable GERONIMO MICHELLE Attending Clinician Unavailable NOAH OSORIO Attending Clinician Unavailable JUNIOR KUMAR Attending Clinician Unavailable MANASA CULLEN Attending Clinician Unavailable NANETTE HONEYCUTT Attending Clinician Unavailable MANASA CULLEN Attending Clinician Unavailable CRIS JAIMES Attending Clinician Unavailable Kelly LOJA, Karen Trent Attending Clinician Darshan LOJA, Julian Attending Clinician César LOJA, Aidan Attending Clinician Cecil LOJA, Jimmy Amato Attending Clinician [phone] ANU ORTIZ Attending Clinician Unavailable NOAH OSORIO Attending Clinician Unavailable SONIA ROBERTS Attending Clinician Unavailable Marcella CLEMENTE, Rae Attending Clinician Unavailable Gonzalo OTT, Layne Attending Clinician Unavailable Miguel Angel LOJA, Geronimo Attending Clinician Dorothea Delgadillo MA Attending Clinician Unavailable Amelia Cameron MA Attending Clinician Unavailable Brii Howard MA Attending Clinician Unavailable Doctor Unassigned, [place] Attending Clinician Unavailable 1, [employer] [...] Effective Expiration Source Type Date Date [facility] MEDICAID STAR [id number] 2019 00:00:00 [facility] [id number] 2018 Common S pirit CHOICE 00:00:00 [facility] [id number] 2018 Common S pirit CHOICE 00:00:00 [facility] [id number] 2018 Common S pirit CHOICE 00:00:00 - [facility] [id number] 2018 Common S pirit CHOICE 00:00:00 - [facility] [id number] 2019 Universi ty of CHOICE - MANAGED 00:00:00 [facility] dical MEDICAIDCOMMUNITY [facility] [id number]/2019-PresentP[address], [place] [address]Medicaid [facility] [id number] 2018 Common S pirit CHOICE 00:00:00 - [facility] [id number] 2018 Common S pirit CHOICE 00:00:00 - [facility] [id number] 2018 Common S pirit CHOICE 00:00:00 - [facility] Problems Condition Condition Condition Status Onset Resolution Last Treating Co mments Source Name Details Category Date Date Treatment Clinician Date CRANIAL CRANIAL Diagnosis Active 2023-02-04 Memoria CEREBROSPI CEREBROSPI 02-01 13:10:00 l NAL FLUID NAL FLUID 00:00: Herm faina LEAK, LEAK, 00 SPONTA SPONTA Active 02/01/2023 [facility] Intractabl Intractabl Disease Active M ethodi e vomiting e vomiting 01-06 st with with 00:00: Hospita nausea nausea 00 l Hematemesi Hematemesi Disease Active M ethodi s with s with 5 st nausea nausea 00:00: Hospita 00 l Hypertensi Hypertensi Disease Active M ethodi ve urgency ve urgency - st 00:00: Hospita 00 l Acute Acute Disease Active Methodi intractabl intractabl 5-28 st e headache e headache 00:00: Ho spita 00 l BMI BMI Disease Active 2021-08 UT 40.0-44.9, 40.0-44.9, 0-07 He alth adult adult 00:00: 00 SPINAL SPINAL Diagnosis Active 2021-082022-05-18 Me moria HEADACHE HEADACHE 0-05 08:44:00 l Active 12:00: [place] 05/16/2022 00 [facility] SENY BY SENY BY Diagnosis Active 2021-082022-05-16 Memoria PHYISICIAN PHYISICIAN 0-05 19:45:00 l Active 12:00: [place] 05/16/2022 00 [facility] L L Diagnosis Active 2021-082022-05-12 Mem oria MASTOIDITI MASTOIDITI 0- 05:56:00 l S S Active 00:00: [place] 05/12/2022 00 [facility] UNSPECIFIE UNSPECIFI Diagnosis Active 2021-10-26 Memoria D ED 3-15 18:20:00 l ABDOMINAL ABDOMINAL 00:00: Herm faina PAIN PAIN 00 Active 10/24/2021 [facility] DISPLACED DISPLACED Diagnosis Active 2021-10-08 Memoria PUMP ERECTOR SHUNT PUMP ERECTOR SHUNT 10-08 19:39:00 l Active 00:00: [place] 10/08/2021 00 [facility] PUMP ERECTOR SHUNT PUMP ERECTOR SHUNT Diagnosis Active 2021-10-26 Memoria MALF MALF 10-08 18:20:00 l Active 00:00: [place] 10/08/2021 00 [facility] G96.00 G96.00 Diagnosis Active 2021-10-26 Me moria Active 09-28 18:20:00 l 09/28/2021 00:00: Sadi gresham [address] MD LOJA Diagnosis Active 2021-05-10 Mem oria REFERRAL/ REFERRAL/ 05-10 20:33:00 l FLUIDS FLUIDS 00:00: [place] LEAKING LEAKING 00 FROM EAR FROM EAR Active 05/10/2021 [facility] CSF CSF Disease Active UT otorrhea otorrhea 05-09 Health 00:00: 00 Syncope Syncope Disease Active 2017-08 Methodi 0-14 [facility] 00:00: Hospita 00 l Lesion of Lesion of Problem 2019-01-26 Memoria ulnar ulnar 15:19:24 l nerve, nerve, [place] right right upper limb upper limb 01/26/2019 [facility] Unspecifie Problem 2019-01-26 M emoria d Unspecifie 15:19:24 l osteoarthr d Sadi n itis, osteoarthr unspecifie itis, d site unspecifie d site 01/26/2019 [facility] Sleep Sleep Problem 2019-01-26 Memor ia apnea, apnea, 15:19:24 l unspecifie unspecifie He rmann d d 01/26/2019 [facility] Unspecifie Unspecifi Problem 2019-01-26 Memoria d asthma, ed asthma, 15:19:24 l uncomplica uncomplica He rmfaina leydi leydi 01/26/2019 [facility] Anxiety Anxiety Problem 2019-01-26 Me moria disorder, disorder, 15:19:24 l unspecifie unspecifie He rmann d d 01/26/2019 [facility] Gastro-eso Gastro-es Problem 2019-01-26 Memoria phageal ophageal 15:19:24 l reflux reflux [place] disease disease without without esophagiti esophagiti s s 01/26/2019 [facility] Essential Essential Problem 2019-01-26 Memoria (primary) (primary) 15:19:24 l hypertensi hypertensi He rmann on on 01/26/2019 [facility] Personal Personal Problem 2019-01-26 Memoria history of history of 15:19:24 l nicotine nicotine Sadi n dependence dependence 01/26/2019 [facility] Allergy Allergy Problem 2019-01-26 Ks moria status to status to 15:19:24 l analgesic analgesic Herm faina agent agent status status 01/26/2019 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 2019-01-26 Memoria (current) (current) 15:19:24 l use of use of [place] non-steroi non-steroi siddharth siddharth anti-infla anti-infla mmatories mmatories (NSAID) (NSAID) 01/26/2019 [facility] Dependence Dependenc Problem 2019-01-26 Memoria on other e on other 15:19:24 l enabling enabling Sadi n machines machines and and devices devices 01/26/2019 [facility] Arthrodesi Arthrodes Problem 2019-01-26 Memoria s status is status 15:19:24 l 01/26/2019 Sadi n Poth Cerebrospi Cerebrosp Problem Active 2022-09-23 Memoria nal fluid inal fluid 07:26:44 l leak leak [place] (disorder) (disorder) Active Problem 09/23/2022 [facility], RHODA Cedeño,[facility] [place],[facility] Chest pain Chest Problem Active 2022-09-23 M emoria (finding) pain 07:26:44 l (finding) [place] Active Problem 09/23/2022 [facility], RHODA Cedeño, RHODA Burr,[facility] Morbid Morbid Problem Active 2022-09-23 David katarzyna obesity obesity 07:26:44 l (disorder) (disorder) He rmann Active Problem 09/23/2022 [facility], [facility] Cede[facility] Rhabdomyol Rhabdomyo Problem Active 2022-09-23 Memoria ysis lysis 07:26:44 l (disorder) (disorder) He rmann Active Problem 09/23/2022 [facility], RHODA Cedeño, RHODA Burr,[facility] Smoker Smoker Problem Active 2022-09-23 Mem oria (finding) (finding) 07:26:44 l Active [place] Problem 09/23/2022 [facility], RHODA Cedeño, RHODA Burr,[facility] MECH COMPL MECH Diagnosis Active 2021-10-26 Memoria OF COMPL OF 18:20:00 l VENTRICULA VENTRICULA He jose alfredo R R INTRACRANI INTRACRANI AL S AL S Active [facility] R10.30 - R10.30 - Diagnosis Active 2021-10-26 Memoria LOWER LOWER 18:20:00 l ABDOMINAL ABDOMINAL Herm faina PAIN, PAIN, UNSPECIF UNSPECIF Active RHODA Cedeño R10.84 - R10.84 - Diagnosis Active 2022-01-10 Memoria GENERALIZE GENERALIZE 14:35:00 l D D [place] ABDOMINAL ABDOMINAL PAIN PAIN [facility] Headache Headache Problem Active 2022-09-23 Memoria (finding) (finding) 07:26:44 l Active [place] Problem 09/23/2022 [facility] 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 (finding) (finding) Active Problem 09/23/2022 [facility] OTHER OTHER Diagnosis Active 2022-05-18 Mem oria REACTION REACTION 08:44:00 l TO SPINAL TO SPINAL Herm faina AND LUMBAR AND LUMBAR PUNC PUNC Active [facility] G96.01 - G96.01 - Diagnosis Active 2022-09-20 Memoria CRANIAL CRANIAL 13:51:00 l CEREBROSPI CEREBROSPI He rmann NAL FLUID NAL FLUID LE LE Active OPID [place] No known No known Disease Unive rs active active ity of problems problems [facility] Cubital Cubital Problem Active UT tunnel tunnel [...] Active UT vomiting vomiting Physic i ans [id number] Non-season Problem Com mon al Spirit allergic - [facility] rhinitis, St unspecifie [facility] [id number] Mild Problem Common intermitte Spirit nt asthma - [facility] with St allergic kes rhinitis, Medical unspecifie Center d whether complicate d [id number] Depression Problem Co mmon with Spirit anxiety - [facility] [id number] Migraine Problem Comm on without Spirit aura and - [facility] without [facility] status [facility] migrainos[facility] Medica [facility] s, not Center intractabl e [id number] Attention Problem Comm on deficit Spirit hyperactiv - [facility] ity [facility] disorder [facility] (ADHD), Medical combined Center type [id number] Primary Problem Comm on osteoarthr Spirit itis of - [facility] right knee [facility] [id number] Pain in Problem Common right knee Spirit [facility] [id number] Left Problem Common maxillary Spirit sinusitis - [facility] [id number] Hypertensi Problem Com mon on, Spirit unspecifie - [facility]I d type [facility] [id number] GERD Problem Common without Spirit esophagiti - [facility] s [facility] [id number] Tobacco Problem Commo n use Spirit disorder - [facility] [id number] Other Problem Common chronic Spirit pain - [facility] [id number] Mixed Problem Common hyperlipid Spirit emia - [facility] [id number] Decreased Problem Com mon hearing of Spirit left ear - [facility] [id number] Loss of Problem Common taste [facility] Sprain of Sprain of Problem Resolve 2022-05-21 2022-05-21 Memoria ligament ligament d 12-22 21:55:10 21:55:10 l of finger of finger 00:00: Anya eisenberg (disorder) (disorder) 00 Resolved 12/23/2011 Problem 05/21/2022 [facility], RHODA Cedeño, RHODA Burr,[facility] Poth History of Past Illness Condition Condition Condition Status Onset Resolution Last Treating Co mments Source Name Details Category Date Date Treatment Clinician Date Headache, Headache, Problem 2021-082022-05-14 2022-05-14 Memoria unspecifie unspecifie 0-02 23:16:23 23:16:23 l d d 02:01: [place] 05/13/2022 00 [facility] Presence Presence Problem 2021-082022-05-14 2022-05-14 Memoria of of 0-02 23:16:23 23:16:23 l cerebrospi cerebrospi 02:01: Harpreet simons fluid nal fluid 00 drainage drainage device device 05/13/2022 05/14/2022 [facility] Carpal Carpal Problem 2017-2019-01-26 2019-01-26 Memoria tunnel tunnel 2- 15:19:24 15:19:24 l syndrome, syndrome, 04:59: Herm faina right right 41 upper limb upper limb 07/17/2018 01/26/2019 [facility] Obstructiv Obstructi Problem 2017-082019-01-11 2019-01-11 Mike bhakta sleep ve sleep - 11:08:48 11:08:48 l apnea apnea 05:23: [place] (adult) (adult) 17 (pediatric (pediatric ) ) 06/28/2018 01/11/2019 MH [facility] Unspecifie Unspecifi Problem 2017-082018-12-03 2018-12-03 Memoria d ed 0-11 14:53:30 14:53:30 l mononeurop mononeurop 04:28: He jose alfredo athy of athy of 42 right right upper limb upper limb 05/22/2018 12/03/2018 Poth Pain in Pain in Problem 2017-082018-12-03 2018-12-03 Mike arm, arm, 0-05 14:53:30 14:53:30 l unspecifie unspecifie 05:00: He jose alfredo gage d 00 05/16/2018 12/03/2018 Poth Allergies, Adverse Reactions, Alerts Allergy Allergy Status Severity Reaction(s) Onset Inactive Treating Comm ents Source Name Type Date Date Clinician No Known No Known Active Memori a Medicati Medicati l on on [place] Allergie Allergie s s NO KNOWN Drug Active Univers ALLERGIE Class ity of S [facility] Acetamin drug Active Headache [facility] ophen allergy Physici TABS ans NO KNOWN Allergy Active [facility] Family History Family Member Diagnosis Comments Start Date Stop Date Source Other Diabetes [facility] natural son Family history of [facility] [...] Drinks History SDOH [facility] Alcohol Binge Gender identity [facility] Sexual orientation [facility] History [...] Center Exposure to 2022-09-18 2022-09-28 Not sure [facility] SARS-CoV-2 (event) 00:00:00 14:46:00 Alcohol Comment 2021-10-18 2021-10-18 Ocassionally [facility] 00:00:00 00:00:00 Social History 2018-07-08 2018-07-08 [facility] 18:40:37 18:40:37 History of tobacco 2018-04-25 Cigarette Smoker [facility] use 00:00:00 Hospital Sex Assigned At [address] [facility] 00:00:00 00:[facility]:00 Medical Center Smoking Status Start Date Stop Date Source Unknown if ever smoked [facility] Current Smoker 2022-06-22 00:00:00 Common Spiri t - [facility] Medical Ce nter Ex-smoker 2021-10-18 00:00:00 2021-10-18 00:00:00 [facility] Medications Ordered Filled Start Stop Current Ordering Indication Dosage Frequency Signature Comments Components Source Medication Medication Date Date Medication? Clinician (SIG) Name Name ciprofloxac 2022- Yes [id number] 10[drp] Q.5D Administer UT in-dexameth 03-13 39303 10 drops He alth asone 00:00: 04:59 into the (Ciprodex) 00 :00 left ear otic in the suspension morning and 10 drops in the evening. Do all this for 7 days. acetaminoph 2022- Yes [id number] 1{tbl} Q6H Take 1 UT en-codeine 8-02 08-08 tablet by [facility] (Tylenol w/ 00:00: 04:59 mouth Codeine #3) 00 :00 every 6 300-30 MG (six) tablet hours if needed for severe pain for up to 5 days. amLODIPine 2023-0 Yes 5mg QD Take 5 mg UT (Norvasc) 5 7-11 by mouth 1 He alth MG tablet 00:00: (one) time 00 each day. lisinopriL 2023-0 Yes 40mg QD Take 1 Metho di (PRINIVIL) 5-30 tablet (40 st 40 mg 18:25: mg total) Hospita tablet 02 by mouth l daily. traMADoL 2023-0 Yes [id number] 50mg Q24H Take 1 Method i (ULTRAM) [...] by mouth l daily. traMADoL 2023-0 Yes [id number] 50mg Q24H Take 1 Method i (ULTRAM) [...] by mouth l daily. traMADoL 2023-0 Yes [id number] 50mg Q24H Take 1 Method i (ULTRAM) [...] by mouth l daily. traMADoL 2023-0 Yes [id number] 50mg Q24H Take 1 Method i (ULTRAM) [...] by mouth l daily. traMADoL 2023-0 Yes [id number] 50mg Q24H Take 1 Method i (ULTRAM) [...] QD Take 1 Meth aubree (NORVASC) 5 01-08-30 tablet (5 st mg tablet 00:00: 04:59 mg total) Ho spita 00 :00 by mouth l daily for 30 days. amLODIPine 2022-0 202- No 5mg QD Take 1 Meth aubree (NORVASC) 5 30 -30 tablet (5 st mg tablet 00:00: 04:59 mg total) Ho spita 00 :00 by mouth l daily for 30 days. amLODIPine 2022-0 202- No 5mg QD Take 1 Meth aubree (NORVASC) 5 01-08-30 tablet (5 st mg tablet 00:00: 04:59 mg total) Ho spita 00 :00 by mouth l daily for 30 days. amLODIPine 2022-0 2022- No 5mg QD Take 1 Meth aubree (NORVASC) 5 01-08-30 tablet (5 st mg tablet 00:00: 04:59 mg total) Ho spita 00 :00 by mouth l daily for 30 days. ciprofloxac 2022-0 202- No 500mg Q.5D Take 1 Me thodi in (Cipro) 01-[address] 500 MG 00:00: 04:59 (500 mg Hospita tablet 00 :00 total) by l mouth 2 (two) times a day for 5 days. metroNIDAZO 3-0 2022- No 500mg Q.06426077 Take 1 Methodi LE (FlagyL) 01-[id number] 500 MG 00:00: 04:59 3D [...] 5 days. metroNIDAZO 2023-0 2023- No 500mg Q.89549560 Take 1 Methodi LE (FlagyL) 01-[id number] 500 MG 00:00: 04:59 3D [...] 5 days. metroNIDAZO 2023-0 2023- No 500mg Q.11128418 Take 1 Methodi LE (FlagyL) 01-[id number] 500 MG 00:00: 04:59 3D [...] 5 days. metroNIDAZO 2023-0 2023- No 500mg Q.32254343 Take 1 Methodi LE (FlagyL) 01-[id number] 500 MG 00:00: 04:59 3D [...] 5 days. metroNIDAZO 2023-0 2023- No 500mg Q.49570626 Take 1 Methodi LE (FlagyL) 01-[id number] 500 MG 00:00: 04:59 3D (500 mg Hospita tablet 00 :00 total) by l mouth 3 (three) times a day for 5 days. butalbital- 2023-0 2023- No 1{tbl} Q6H Take 1 M ethodi acetaminoph 01-[address] en-caff 00:00: 04:59 mouth Hospita (FIORICET) 00 :00 every 6 l 50-325-40 (six) mg per hours as tablet needed for headaches for up to 2 days. butalbital- 2022- No 1{tbl} Q6H Take 1 M ethodi acetaminoph 5-29 06-[address] [facility] 00:00: 04:59 mouth Hospita (FIORICET) 00 :00 every 6 l 50-325-40 (six) mg per hours as tablet needed for headaches for up to 2 days. butalbital- 2022- No 1{tbl} Q6H Take 1 M ethodi acetaminoph 5-29 06- tablet by [facility] 00:00: 04:59 mouth Hospita (FIORICET) 00 :00 every 6 l 50-325-40 (six) mg per hours as tablet needed for headaches for up to 2 days. butalbital- 2022- No 1{tbl} Q6H Take 1 M ethodi acetaminoph 5-29 06- tablet by [facility] 00:00: 04:59 mouth Hospita (FIORICET) 00 :00 every 6 l 50-325-40 (six) mg per hours as tablet needed for headaches for up to 2 days. butalbital- 2022- No 1{tbl} Q6H Take 1 M ethodi acetaminoph 5-29 06- tablet by [facility] 00:00: 04:59 mouth Hospita (FIORICET) 00 :00 every 6 l 50-325-40 (six) mg per hours as tablet needed for headaches for up to 2 days. ondansetron 2022-0 Yes [address] (Zofran) 8 4-06 as needed Luke s MG tablet 16:50: [address] ondansetron 2022-0 Yes [address] (Zofran) 8 4-06 as needed Luke s MG tablet 16:50: [address] ondansetron 2022-0 Yes [address] (Zofran) 8 4-06 as needed Luke s MG tablet 16:50: [address] ondansetron 2022-0 Yes [address] (Zofran) 8 4-06 as needed Luke s MG tablet 16:50: [address] ondansetron 2022-0 Yes [address] (Zofran) 8 4-06 as needed Luke s MG tablet 16:50: [address] ondansetron 2022-0 Yes [address] (Zofran) 8 4-06 as needed Luke s MG tablet 16:50: [address] ondansetron 2022-0 Yes [address] (Zofran) 8 4-06 as needed Luke s MG tablet 16:50: [address] traMADol 0 2022- No [id number] 50mg Q6H Take 1 UT (Ultram) 50 210-04 9106 tablet (50 H ealth MG tablet 00:00: 05:59 mg total) 00 :00 by mouth every 6 (six) hours if needed for severe pain for up to 5 days. losartan 2022-0 Yes 100mg QD Take [address] (COZAAR) 2-16 tablet [facility] 100 MG 00:00: (100 mg Medical tablet 00 total) by Center mouth in the morning. omeprazole 2022-0 Yes [address] (PriLOSEC) 2-16 30 minutes Ariel es 40 MG 00:00: before Medical capsule 00 morning Center meal omeprazole 2022-0 Yes UT (PriLOSEC) 2-[address] 00:00: capsule 00 losartan-hy 2022-0 Yes UT droCHLOROth 2-16 Health iazide 00:00: (Hyzaar) 00 100-25 MG tablet omeprazole 2022-0 Yes UT (PriLOSEC) 2-[address] 00:00: capsule 00 losartan-hy 2022-0 Yes UT droCHLOROth 2-16 Health iazide 00:00: (Hyzaar) 00 100-25 MG tablet losartan 3-0 Yes 100mg QD Take [address] (COZAAR) 2-16 tablet [facility] 100 MG 00:00: (100 mg Medical tablet 00 total) by Center mouth in the morning. omeprazole 2022-0 Yes [address] (PriLOSEC) 2-16 30 minutes Ariel es 40 MG 00:00: before Medical capsule 00 morning Center meal losartan 3-0 Yes 100mg QD Take [address] (COZAAR) 2-16 tablet [facility] 100 MG 00:00: (100 mg Medical tablet 00 total) by Center mouth in the morning. omeprazole 3-0 Yes [address] (PriLOSEC) 2-16 30 minutes Ariel es 40 MG 00:00: before Medical capsule 00 morning Center meal losartan 3-0 Yes 100mg QD Take [address] (COZAAR) 2-16 tablet [facility] 100 MG 00:00: (100 mg Medical tablet 00 total) by Center mouth in the morning. omeprazole 3-0 Yes [address] (PriLOSEC) 2-16 30 minutes Ariel es 40 MG 00:00: before Medical capsule 00 morning Center meal losartan 3-0 Yes 100mg QD Take [address] (COZAAR) 2-16 tablet [facility] 100 MG 00:00: (100 mg Medical tablet 00 total) by Center mouth in the morning. omeprazole 2022-0 Yes [address] (PriLOSEC) 2-16 30 minutes Ariel es 40 MG 00:00: before Medical capsule 00 morning Center meal losartan 3-0 Yes 100mg QD Take [address] (COZAAR) 2-16 tablet [facility] 100 MG 00:00: (100 mg Medical tablet 00 total) by Center mouth in the morning. omeprazole 2022-0 Yes [address] (PriLOSEC) 2-16 30 minutes Ariel es 40 MG 00:00: before Medical capsule 00 morning Center meal losartan 3-0 Yes 100mg QD Take [address] (COZAAR) 2-16 tablet [facility] 100 MG 00:00: (100 mg Medical tablet 00 total) by Center mouth in the morning. omeprazole 2022-0 Yes [address] (PriLOSEC) 2-16 30 minutes Ariel es 40 MG 00:00: before Medical capsule 00 morning Center meal ondansetron 2022-2022- No 105 4mg UT (Zofran) 09-18 Health tablet 4 mg 16:42: 16:41 42 :42 traMADol 2022-0 2022- No [id number] 50mg Q6H Take 1 UT (Ultram) 50 [...] by mouth Center in the morning. ciprofloxac 2023-0 2023- No [id number] 10[drp] Q.5D Administer UT in-dexameth 1-09-21 [id number] 10 drops He alth asone 00:00: 05:59 [...] faina capsule 00 cap, 0 Refill(s), Pharmacy: [id number], 190.5, cm, 05/16/22 23:38:00 CDT, Height, 159.001, kg, 05/16/22 23:38:00 CDT, Weight senna 8.6 2021-08 Yes 8.6 mg = 1 Me moria mg oral 0-08 tab, PO, l tablet 14:59: Q12H, X 7 Sadi n 00 day, # 14 tab, 0 Refill(s), Pharmacy: [id number], 190.5, cm, 05/16/22 23:38:00 CDT, Height, 159.001, kg, 05/16/22 23:38:00 CDT, Weight polyethylen 2021-08 Yes 17 gm, PO, Memoria e glycol 0-08 BID, X 14 l 3350 oral 14:59: day, # 255 He rmann powder for 00 gm, 0 reconstitut Refill(s), ion Pharmacy: [id number], 190.5, cm, 05/16/22 23:38:00 CDT, Height, 159.001, kg, 05/16/22 23:38:00 CDT, Weight celecoxib 2021-08 Yes 200 mg = 1 Me moria 200 mg oral 0-08 cap, PO, l capsule 13:50: BID, # 28 Kelly nn 00 cap, 0 Refill(s), [facility]acy: [id number], 190.5, cm, 05/16/22 23:38:00 CDT, [...] Duration: 30 day, Stop date: 06/17/22 16:00:00 [employer]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 WASTE: F/P - Black; [...] 0-07 not exceed l 17:20: 4 gm/day. [place] 00 (Same as: Tylenol) tramadol 50 2021-08 No Notes: Not Memoria mg oral 0-07 to exceed l tablet 16:55: 400mg/day. Kelly nn 00 (Same As: Ultram) tramadol 50 2021-08 Yes 50 mg = 1 M emoria mg oral 0-07 tab, PO, l tablet 12:42: Q6H, PRN [place] 00 Pain, not to exceed 400 mg/day, X 5 day, # 20 tab, 0 Refill(s), Pharmacy: [id number], 190.5, cm, 05/16/22 23:38:00 CDT, Height, 159.001, kg, 05/16/22 23:38:00 CDT, Weight lisinopril 2021-08 No Notes: Memor ia 0-06 (Same as: l 17:27: Prinivil, [place] 00 Zestril) docusate 2021-08 No Notes: Memoria 0-06 (Same as: l 14:00: Colace) [place] 00 (Do Not Crush) senna 2021-08 No Notes: Memoria 0-06 (Same as: l 14:00: Senokot) [place] 00 ofloxacin 2021-08 No Notes: Memori a otic 0.3% 0-06 (Same as: l solution 14:00: Floxin [place] 00 Otic) pantoprazol 2021-08 No Notes: David katarzyna e 0-06 Tablet l 14:00: should not [place] 00 be chewed or crushed. (Same as: Protonix) topiramate 2021-08 No Notes: Memor ia 0-06 (Same As: l 14:00: Topamax) [place] 00 "Do Not Crush" Hazardous Drug Group 3:Reproduc tive risk Hazardous Drug -- Refer to safe handling procedure PPE Matrix ceFAZolin 2021-08 No Notes: Memori a (SCIP) 0-06 (Same as l 05:00: Ancef) [place] 00 Adult 2021-08 No 650 mg = 2 Memori a Aspirin 325 0-06 tab, PO, l mg oral 04:57: Q4H, 0 [place] tablet 00 Refill(s) Aspercreme 2021-08 Yes 1 patch, Mem oria Odor Free 0-06 TOP, l Max 04:56: Daily, 0 [place] Strength 00 Refill(s) Lidocaine Patches X-Large 4% topical film Saline 2021-08 No Notes: Memoria Flush 0.9% 0-06 (Same as: l 02:00: BD [place] 00 Posiflush) Keppra 500 2021-08 No Notes: Memor ia mg oral 0-06 (Same l tablet 02:00: as:Keppra) Kelly nn 00 sucralfate 2021-08 No Notes: May M emoria 0-06 interfere l 02:00: w/enteral [place] 00 feeds - Take 1 hr before [...] tab, PO, l tablet 00:52: Daily, # [place] 00 30 tab, 0 Refill(s) pantoprazol 2021-08 Yes TAKE 1 David katarzyna e 40 mg 0-06 TABLET BY l oral 00:52: MOUTH [place] enteric 00 EVERY DAY coated tablet sucralfate 2021-08 Yes 1 gm = 1 Mem oria 1 g oral 0-06 tab, PO, l tablet 00:52: Before [place] 00 Meals & Bedtime, # 120 tab, 3 Refill(s) amoxicillin 2021-08 No 1 tab, PO, Memoria -clavulanat 0-06 BID, # 20 l e 875 00:52: tab, 0 [place] mg-125 mg 00 Refill(s) oral tablet metoclopram [...] tab, PO, l tablet 00:52: Q6H, PRN [place] 00 Pain, # 40 tab, 0 Refill(s) [...] l oral tablet 00:52: Daily, # 5 [place] 00 tab, 0 Refill(s) ondansetron 2021-08 No 4 mg = 1 Me moria 4 mg oral 0-06 tab, PO, l tablet, 00:52: TID, PRN Sadi n disintegrat 00 Nausea / ing Vomiting, Dissolve tab under tongue, # 10 tab, 0 Refill(s) predniSONE 2021-08 No 10 mg = 1 Me moria 10 mg oral 0-06 tab, PO, l tablet 00:52: Daily, # [place] 00 30 tab, 3 Refill(s) ofloxacin 2021-08 No 5 drp, Memori a otic 0.3% 0-06 BOTH EARS, l solution 00:52: BID, # 5 Kelly nn 00 mL, 0 Refill(s) Sodium 2021-08 No 1,000 mL, Memori a Chloride 0-06 Rate: 50 l 0.9% IV 00:45: ml/hr, [place] 1,000 mL 00 Infuse over: 20 hr, Route: IV, Dosing Weight 159.091 kg, Total Volume: 1,000, Start date: 05/16/22 19:45:00 CDT, Duration: 30 day, Stop date: 06/15/22 19:44:00 CDT, BSA: 2.93 m2, 0 labetalol 2021-08 No 10 mg, 2 David katarzyna 0-06 mL, Route: l 00:45: IVP, Drug [place] form: INJ, Q15Min, Dosing Weight 159.091, kg, [...] Size: 4 mg Product Wasted: ___ mg [place] 2021-08 No Notes: Do Memoria 10/325 oral 0-06 not exceed l tablet 00:45: 4gm/day of [place] acetaminop hen. (Same as: [place] 325/10) Dilaudid 2021-08 No 0.5 mg, Memori [...] 1.4% 0-06 Chlorasept l spray 00:45: ic [place] (Same as: Chlorasept ic, Sore Throat [place]) WASTE: F/P - Black; E - [employer] Trash [employer] bisacodyl 2021-08 No Notes: Memori a 0-06 (Same As: l 00:45: Dulcolax, Bisco-Lax) Saline 2021-08 No Notes: Memoria Flush 0.9% 0-06 (Same as: l 00:45: BD Posiflush) caffeine 2021-08 No Notes: Memoria 200 mg oral 0-05 Same as: l tablet 23:56: No Doz) morphine 2022-1 No 4 mg, Memoria Sulfate 0-05 Route: [...] Take 1 UT -clavulanat 0-03 tablet by [facility] e 00:00: mouth (Augmentin) 00 every 12 875-125 MG (twelve) tablet hours. FOR 7 DAYS topiramate 2021-08 Yes TAKE 1 UT (Topamax) 0-03 TABLET BY [facility]alt [facility] 25 MG 00:00: MOUTH tablet 00 EVERY 12 HOURS FOR 10 DAYS amoxicillin 2021-08 Yes 1{tbl} Q12H Take 1 UT -clavulanat 0-03 tablet by [facility] lt e 00:00: mouth (Augmentin) 00 every [...] ketOROLAC 2021-08 No 15 mg, Memori a 0- Route: l 01:29: IVP, Drug form: INJ, ONCE, Dosing Weight 145.455, kg, Priority: STAT, Start date: 05/12/22 20:29:00 CDT, Stop date: 05/12/22 20:29:00 CDT acetaminoph 2021-08 Yes Notes: Do M emoria en 0- not exceed l 01:19: 4 gm/day. (Same as: Tylenol) ibuprofen 2021-08 No 600 mg, Memor ia 0-02 Route: PO, l 01:19: ONCE, Dosing Weight 145.455, kg, Priority: STAT, Start date: 05/12/22 20:19:00 CDT, Stop date: 05/12/22 20:19:00 CDT Lactated 2021-08 No 1,000 mL, David katarzyna Ringers 0-02 Infuse l (Bolus) IV 01:19: Over: 1 Herm faina 00 hr, Route: IV, ONCE, Priority: STAT, Dosing [...] Memoria Sulfate 0-01 (Same l 22:33: as:MORPhin [place] 00 e Sulfate) fentaNYL 2021-08 No Notes: Memoria 0-01 (Same as: l 17:14: Sublimaze) Preservati ve free. lidocaine 2021-08 No Notes: Memori a 1% 0-01 (Same as: l 15:19: Xylocaine) morphine 2021-08 No Notes: Memoria Sulfate 0-01 (Same l 15:19: as:MORPhin [place] 00 e Sulfate) Benadryl 2021-08 No 25 [...] 50 Memoria 0-01 microgram, l 13:26: Route: IVP, ONCE, Dosing Weight 145.455, kg, Priority: STAT, Start date: 05/12/22 8:26:00 CDT, Stop date: 05/12/22 8:26:00 CDT morphine 2021-08 No 4 mg, Memoria Sulfate 0-01 Route: l 13:23: IVP, ONCE, Dosing Weight 145.455, kg, Priority: STAT, Start date: 05/12/22 8:23:00 CDT, Stop date: 05/12/22 8:23:00 CDT ketOROLAC 2021-08 No 4 days Memor ia 0-01 l 10:21: MEDICATION WASTE Product Size: 30 mg Product Wasted: ___ mg lisinopril 2022-0 Yes 20mg QD Take 20 mg U T 20 MG 8-16 by mouth 1 Health tablet 00:00: (one) time 00 each day. lisinopril 2022-0 Yes 20mg QD Take 20 mg U T 20 MG 8-16 by mouth 1 Health tablet 00:00: (one) time 00 each day. lisinopril 2022-0 Yes 20mg QD Take 20 mg U T 20 MG 8-16 by mouth 1 Health tablet 00:00: (one) time 00 each day. ofloxacin 2021-0 Yes INSTILL 4 UT (Floxin) 6-15 DROPS INTO [facility]alt [facility] 0.3 % otic 00:00: LEFT EAR solution 00 TWICE A DAY ofloxacin 2-0 Yes INSTILL 4 UT (Floxin) 6-15 DROPS INTO [facility]alt [facility] 0.3 % otic 00:00: LEFT EAR solution 00 TWICE A DAY ofloxacin 2-0 Yes INSTILL 4 UT (Floxin) 6-15 DROPS INTO [facility]alt [facility] 0.3 % otic 00:00: LEFT EAR solution 00 TWICE A DAY ofloxacin 2-0 Yes INSTILL 4 UT (Floxin) 6-15 DROPS INTO [facility]alt [facility] 0.3 % otic 00:00: LEFT EAR solution 00 TWICE A DAY No known No No known UT medications 3-11 medication He alth 13:38: s 44 Cefazolin No Notes: Memori a 10-10 (Same As: l 04:00: Ancef, [place] 00 Kefzol) MEDICATION WASTE Product Size: 1000 mg Product Wasted: ___ mg Cefazolin No Notes: Memori a 10-10 (Same As: l 04:00: Ancef, [place] 00 Kefzol) MEDICATION WASTE Product Size: 1000 mg Product Wasted: ___ mg Oxycodone No 10 mg, Memori a 10-09 Route: PO, l 21:36: Drug form: [place] 00 TAB, ONCE, Dosing Weight 156, kg, PRN Pain Score 7-10, Start date: 10/09/21 15:36:00 [employer] Oxycodone No 10 mg, Memori a 10-09 Route: PO, l 21:36: Drug form: [place] 00 TAB, ONCE, Dosing Weight 156, kg, PRN Pain Score 7-10, Start date: 10/09/21 15:36:00 [employer]ICER Ofirmev 2021-0 No or = 50 Memori a 2-28 kg, Start l 21:19: date: 10/09/21 15:19:00 [employer] OFFICER Ofirmev 0 No or = 50 Memori a 2-28 kg, Start l 21:19: date: 10/09/21 15:19:00 [employer]ER sugammadex 0 No Route: IV, M emoria (ANES) 10-09 Drug form: l 21:05: BILLNDavidson 00 ONCE, Stop date: 10/09/21 15:05:00 [employer] OFFICER sugammadex 2021-0 No Route: IV, M emoria (ANES) 10-09 Drug form: l 21:05: SOLNDavidson 00 ONCE, Stop date: 10/09/21 15:05:00 [employer]ER Hydromorpho 0 No Notes: David katarzyna ne 2- Same as l 21:02: Dilaudid Flumazenil 0 No Notes: Memor ia 2- (Same as: l 21:02: Romazicon) Naloxone 0 No Notes: Memoria - Same as l 21:02: Narcan Ondansetron 0 No 4 mg, Memor ia - Route: l 21:02: IVP, ONCE, Dosing Weight 156, kg, PRN Nausea & Vomiting, Start date: 10/09/21 15:02:00 [employer] OFFICER Hydromorpho 2021-0 No Notes: David katarzyna ne - Same as l 21:02: Dilaudid Flumazenil No Notes: Memor ia - (Same as: l 21:02: Romazicon) Naloxone No Notes: Memoria - Same as l 21:02: Narcan Ondansetron 0 No 4 mg, Memor ia 10-09 Route: l 21:02: IVP, ONCE, Dosing Weight 156, kg, PRN Nausea & Vomiting, Start date: 10/09/21 15:02:00 [employer]ER ondansetron 2021-0 No Route: IV, Memoria (ANES) - Drug form: l 21:00: INJ, ONCE, Stop date: 10/09/21 15:00:00 [employer]ER ondansetron 2021-0 No Route: IV, Memoria (ANES) 2- Drug form: l 21:00: INJ, ONCE, Stop date: 10/09/21 15:00:00 [employer] OFFICER ceFAZolin 2021-0 No Route: IV, Me moria (ANES) 2- Drug form: l 20:38: INJ, ONCE, Stop date: 10/09/21 14:38:00 [employer] OFFICER ceFAZolin 2021-0 No Route: IV, Me moria (ANES) 2- Drug form: l 20:38: INJ, ONCE, Stop date: 10/09/21 14:38:00 [employer]ER propofol 2021-0 No Route: IV, Mem oria (ANES) 2- Drug form: l 20:33: INJ, ONCE, Stop date: 10/09/21 14:33:00 [employer]ER rocuronium 2021-0 No Route: IV, Thomas emoria (ANES) - Drug form: l 20:33: INJ, ONCE, Stop date: 10/09/21 14:33:00 [employer]ICER fentaNYL 2021-0 No Route: IV, Mem oria (ANES) 10-09 Drug form: l 20:33: INJ, ONCE, Stop date: 10/09/21 14:33:00 [employer]ICER dexamethaso 0 No Route: IV, Memoria ne (ANES) 10-09 Drug form: l 20:33: INJ, ONCE, Stop date: 10/09/21 14:33:00 [employer]ICER propofol 2021-0 No Route: IV, Mem oria (ANES) 10-09 Drug form: l 20:33: INJ, ONCE, Stop date: 10/09/21 14:33:00 [employer] OFFICER rocuronium 2021-0 No Route: IV, Thomas emoria (ANES) 10-09 Drug form: l 20:33: INJ, ONCE, Stop date: 10/09/21 14:33:00 [employer] OFFICER fentaNYL 2021-0 No Route: IV, Mem oria (ANES) 10-09 Drug form: l 20:33: INJ, ONCE, Stop date: 10/09/21 14:33:00 [employer] OFFICER dexamethaso 2021-0 No Route: IV, Memoria ne (ANES) 10-09 Drug form: l 20:33: INJ, ONCE, Stop date: 10/09/21 14:33:00 [employer]ER lidocaine 2021-0 No Route: IV, Me moria (ANES) 10-09 Drug form: l 20:28: INJ, ONCE, Stop date: 10/09/21 14:28:00 [employer]ER lidocaine 2021-0 No Route: IV, Me moria (ANES) 10-09 Drug form: l 20:28: INJ, ONCE, Stop date: 10/09/21 14:28:00 [employer]ICER Isolyte S 0 No Route: IV, Me moria PH 7.4 2-28 Total l (ANES) 1000 19:29: Volume: Her jones mL 00 1,000, Start date: 10/09/21 13:29:00 [employer] OFF[employer]ER, Stop date: 10/09/21 14:29:00 [employer] OFFICER Isolyte S 2021-0 No Route: IV, Me moria PH 7.4 2-28 Total l (ANES) 1000 19:29: Volume: Her jones mL 00 1,000, Start date: 10/09/21 13:29:00 [employer] OFF[employer]ER, Stop date: 10/09/21 14:29:00 [employer]ER Epinephrine 2021-0 Yes Notes: David katarzyna 0.01 [...] Drug form: FILM, Start date: 10/09/21 9:00:00 [employer]ER, Duration: 30 day, Stop date: 11/07/21 9:00:00 CDT, 0 Levetiracet 2021-0 No 500 mg, 1 M emoria am 500 MG 2-28 tab, l Oral Tablet 15:00: Route: PO, [place] [Keppra] 00 Drug form: TAB, Q12H, Dosing Weight 156, kg, Start date: 10/09/21 9:00:00 [employer]ER, Duration: 30 day, Stop date: 11/07/21 21:00:00 CDT, 0 Lidocaine 2021-0 No 1 patch, David katarzyna 0.05 MG/MG 2-28 Route: l Transdermal 15:00: TOP, Sadi n Patch 00 Daily, Drug form: FILM, Start date: 10/09/21 9:00:00 [employer] OFFICER, Duration: 30 day, Stop date: 11/07/21 9:00:00 CDT, 0 Levetiracet No 500 mg, 1 M emoria am 500 MG 2-28 tab, l Oral Tablet 15:00: Route: PO, [place] [Keppra] 00 Drug form: TAB, Q12H, Dosing Weight 156, kg, Start date: 10/09/21 9:00:00 [employer] OFFICER, Duration: 30 day, Stop date: 11/07/21 21:00:00 CDT, 0 Hydromorpho No Notes: David katarzyna ne 2- Same as l 13:57: Dilaudid [place] Hydromorpho No Notes: David katarzyna ne 2-28 Same as l 13:57: Dilaudid [place] 00 Reglan No Notes: Memoria 2-28 (Same as: l 08:15: Reglan) [place] Dilaudid No Notes: Memoria 2-28 Same as l 08:15: Dilaudid [place] Reglan No Notes: Memoria 2-28 (Same as: l 08:15: Reglan) [place] Dilaudid No Notes: Memoria 2-28 Same as l 08:15: Dilaudid [place] Sodium No 1,000 mL, Memori a Chloride 10-09 Rate: 75 l 0.9% IV 06:49: ml/hr, [place] 1,000 mL 00 Infuse over: 13.3 hr, Route: IV, Dosing Weight 156 kg, Total Volume: 1,000, Start date: 10/09/21 0:49:00 [employer] OFFICER, Duration: 30 day, Stop date: 11/08/21 0:48:00 CDT, BSA: 2.9 m2, 0 Sodium No 1,000 mL, Memori a Chloride 10-09 Rate: 75 l 0.9% IV 06:49: ml/hr, [place] 1,000 mL 00 Infuse over: 13.3 hr, Route: IV, Dosing Weight 156 kg, Total Volume: 1,000, Start date: 10/09/21 0:49:00 [employer] OFFICER, Duration: 30 day, Stop date: 11/08/21 0:48:00 CDT, BSA: 2.9 m2, 0 Docusate No Notes: Memoria 2-28 (Same as: l 03:00: Colace) [place] 00 (Do Not Crush) Docusate No Notes: Memoria 2-28 (Same as: l 03:00: Colace) [place] 00 (Do Not Crush) sennosides, No Notes: David katarzyna LONG TERM - (Same as: l 03:00: Senokot) [place] 00 Saline No Notes: Memoria Flush 0.9% 2-28 (Same as: l 03:00: BD [place] 00 Posiflush) sennosides, No Notes: David katarzyna LONG TERM 2-28 (Same as: l 03:00: Senokot) [place] 00 Saline No Notes: Memoria Flush 0.9% 2-28 (Same as: l 03:00: BD [place] 00 Posiflush) Sodium No 1,000 mL, Memori a Chloride 10-09 Rate: 50 l 0.9% IV 01:57: ml/hr, [place] 1,000 mL 00 Infuse over: 20 hr, Route: IV, Dosing Weight 156 kg, Total Volume: 1,000, Start date: 10/08/21 19:57:00 [employer] OFFICER, Duration: 30 day, Stop date: 11/07/21 19:56:00 CDT, BSA: 2.9 m2, 0 Acetaminoph No Notes: Do M emoria en - not exceed l 01:57: 4 gm/day. [place] 00 (Same as: Tylenol) Acetaminoph No Notes: David katarzyna en 325 MG / 10-09 (Same as: l Hydrocodone 01:57: [place] Kelly nn Bitartrate 00 325/5) Do 5 MG Oral not exceed Tablet 4gm/day of acetaminop hen. Morphine No Notes: Memoria - (Same l 01:57: as:MORPhin [place] 00 e Sulfate) Bisacodyl No Notes: Memori a - (Same As: l 01:57: Dulcolax, [place] 00 Bisco-Lax) Ondansetron No Notes: David katarzyna 2-28 (Same as: l :57: Zofran) MEDICATION WASTE Product Size: 4 mg Product Wasted: ___ mg Hydralazine No Notes: David katarzyna -28 (Same as: l :57: Apresoline [place] 00 ) Push over 5 minutes Labetalol No 10 mg, 2 David katarzyna 2-28 mL, Route: l 01:57: IVP, Drug form: INJ, Q15Min, Dosing Weight 156, kg, PRN Hypertensi on, Start date: 10/08/21 19:57:00 [employer] OFFICER, Duration: 3 doses or times, Stop date: Limited # of times, 0 Saline No Notes: Memoria Flush 0.9% 10-09 (Same as: l :57: BD [place] 00 Posiflush) Insulin No Notes: [...] Rate: 50 l 0.9% IV 01:57: ml/hr, [place] 1,000 mL 00 Infuse over: 20 hr, Route: IV, Dosing Weight 156 kg, Total Volume: 1,000, Start date: 10/08/21 19:57:00 [employer] OFFICER, Duration: 30 day, Stop date: 11/07/21 19:56:00 CDT, BSA: 2.9 m2, 0 Acetaminoph No Notes: Do M emoria en - not exceed l 01:57: 4 gm/day. [place] 00 (Same as: Tylenol) Acetaminoph No Notes: David katarzyna en 325 MG / - (Same as: l Hydrocodone 01:57: [place] Kelly nn Bitartrate 00 325/5) Do 5 MG Oral not exceed Tablet 4gm/day of acetaminop hen. Morphine No Notes: Memoria 2-28 (Same l :57: as:MORPhin e Sulfate) Bisacodyl No Notes: Memori a 2- (Same As: l :57: Dulcolax, Bisco-Lax) Ondansetron No Notes: David katarzyna 2- (Same as: l :57: Zofran) MEDICATION WASTE Product Size: 4 mg Product Wasted: ___ mg Hydralazine No Notes: David katarzyna 2-28 (Same as: l :57: Apresoline ) Push over 5 minutes Labetalol No 10 mg, 2 David katarzyna 2-28 mL, Route: l :57: IVP, Drug form: INJ, Q15Min, Dosing Weight 156, kg, PRN Hypertensi on, Start date: 10/08/21 19:57:00 [employer] OFFICER, Duration: 3 doses or times, Stop [...] l Oral Tablet 13:52: Q12H, # 60 [place] [Keppra] 00 tab, 0 Refill(s), Pharmacy: [id number], 190.5, cm, 10/03/21 6:40:00 [employer]ICER, Height, 159.3, kg, 10/03/21 6:40:00 [employer] OFFICER, Weight docusate Yes 2 cap, PO, Mem oria sodium 50 2-24 QPM, X 10 l MG / 13:52: day, # 20 [place] sennosides, 00 cap, 0 LONG TERM 8.6 MG Refill(s), Oral Pharmacy: [id number], 190.5, cm, 10/03/21 6:40:00 [employer] OFFICER, Height, 159.3, kg, 10/03/21 6:40:00 [employer] OFFICER, Weight magnesium Yes 8.725 gm = Me moria citrate 2-24 150 ml, l 58.2 MG/ML 13:52: PO, ONCE, He rmann Oral 00 if no Solution bowel movement in couple days, # 300 ml, 0 Refill(s), Pharmacy: [facility] #[id number], 190.5, cm, 10/03/21 6:40:00 [employer] OFFICER, Height, 159.3, kg, 10/03/21 6:40:00 [employer] OFFICER, Weight POLYETHYLEN Yes 17 gm, PO, Memoria E GLYCOL 2-24 Daily, X l 3350 142 13:52: 10 day, # Herm faina MG/ML Oral 00 170 gm, 0 Solution Refill(s), [Miralax] Pharmacy: [facility] #[id number], 190.5, cm, 10/03/21 6:40:00 [employer] OFFICER, Height, 159.3, kg, 10/03/21 6:40:00 [employer] OFFICER, Weight Ondansetron No 4 mg = 1 Me moria 4 MG Oral 2-24 tab, PO, l Tablet 13:52: Q8H, PRN [place] [Zofran] 00 Nausea/vom iting, X 3 day, # 10 tab, 0 Refill(s), Pharmacy: [facility] #[id number], 190.5, cm, 10/03/21 6:40:00 [employer] OFFICER, Height, 159.3, kg, 10/03/21 6:40:00 [employer] OFFICER, Weight Acetaminoph Yes 1 tab, PO, Memoria en 325 MG / 2-24 Q4-6H, PRN l Hydrocodone 13:52: Pain Score [place] Bitartrate 00 4-6, X 5 5 MG Oral day, # 30 Tablet tab, 0 [[place] Refill(s), 5/325] other Levetiracet Yes 500 mg = 1 Memoria am 500 MG 2-24 tab, PO, l Oral Tablet 13:52: Q12H, # 60 [place] [Keppra] 00 tab, 0 Refill(s), Pharmacy: [facility] #[id number], 190.5, cm, 10/03/21 6:40:00 SEC[employer] OFFICER, Height, 159.3, kg, 10/03/21 6:40:00 [employer] OFFICER, Weight docusate Yes 2 cap, PO, Mem oria sodium 50 2-24 QPM, X 10 l MG / 13:52: day, # 20 [place] sennosides, 00 cap, 0 LONG TERM 8.6 MG Refill(s), Oral Pharmacy: [facility] #[id number], 190.5, cm, 10/03/21 6:40:00 SEC[employer]ILITY OFFICER, Height, 159.3, kg, 10/03/21 6:40:00 [employer] OFFICER, Weight magnesium 0 Yes 8.725 gm = Me moria citrate 2-24 150 ml, l 58.2 MG/ML 13:52: PO, ONCE, He rmann Oral 00 if no Solution bowel movement in couple days, # 300 ml, 0 Refill(s), Pharmacy: [facility] #[id number], 190.5, cm, 10/03/21 6:40:00 SEC[employer] UTILITY OFFICER, Height, 159.3, kg, 10/03/21 6:40:00 SEC[employer]ILITY OFFICER, Weight POLYETHYLEN 0 Yes 17 gm, PO, Memoria E GLYCOL 2-24 Daily, X l 3350 142 13:52: 10 day, # Herm faina MG/ML Oral 00 170 gm, 0 Solution Refill(s), [Miralax] Pharmacy: [facility] #[id number], 190.5, cm, 10/03/21 6:40:00 SEC[employer] UTILITY OFFICER, Height, 159.3, kg, 10/03/21 6:40:00 SEC[employer] UTILITY OFFICER, Weight Ondansetron No 4 mg = 1 Me moria 4 MG Oral 2-24 tab, PO, l Tablet 13:52: Q8H, PRN [place] [Zofran] Nausea/vom iting, X 3 day, # 10 tab, 0 Refill(s), Pharmacy: [facility] #[id number], 190.5, cm, 10/03/21 6:40:00 SEC[employer] UTILITY OFFICER, Height, 159.3, kg, 10/03/21 6:40:00 SEC[employer] UTILITY OFFICER, Weight Acetaminoph Yes 1 tab, PO, Memoria en 325 MG / 2-24 Q4-6H, PRN l Hydrocodone 13:52: Pain Score [place] Bitartrate 00 4-6, X 5 5 MG Oral day, # 30 Tablet tab, 0 [[place] Refill(s), 5/325] other heparin No Notes: Memoria [...] 2-23 (Same l Oral Tablet 03:00: as:Keppra) [place] [Keppra] 00 Cefazolin No Notes: Memori a 2-23 (Same as l 02:00: Ancef) [place] 00 Cefazolin No Notes: Memori a 2-23 (Same as l 02:00: Ancef) [place] 00 Docusate No Notes: Memoria 2-22 (Same as: l 23:00: Colace) [place] 00 (Do Not Crush) sennosides, No Notes: David katarzyna LONG TERM 10-03 (Same as: l 23:00: Senokot) Famotidine No Notes: Memor ia 20 MG Oral 10-03 (Same as: l Tablet 23:00: Pepcid) Docusate No Notes: Memoria 2- (Same as: l 23:00: Colace) (Do Not Crush) sennosides, No Notes: David katarzyna LONG TERM 10-03 (Same as: l 23:00: Senokot) Famotidine No Notes: Memor ia 20 MG Oral 10-03 (Same as: l Tablet 23:00: Pepcid) Hydromorpho No 0.5 mg, Mem oria ne 10-03 Route: l 20:05: IVP, ONCE, Dosing Weight 159.3, kg, Priority: STAT, Start date: 10/03/21 14:05:00 [employer] OFFICER, Stop date: 10/03/21 14:05:00 [employer] OFFICER Hydromorpho No 0.5 mg, Mem oria ne 10-03 Route: l 20:05: IVP, ONCE, Dosing Weight 159.3, kg, Priority: STAT, Start date: 10/03/21 14:05:00 [employer]ILITY OFFICER, Stop date: 10/03/21 14:05:00 [employer] OFFICER metoprolol No Route: IV, M emoria (ANES) 10-03 Drug form: l 19:20: INJ, ONCE, Stop date: 10/03/21 13:20:00 SEC[employer] UT[employer] OFFICER metoprolol No Route: IV, M emoria (ANES) 10-03 Drug form: l 19:20: INJ, ONCE, Stop date: 10/03/21 13:20:00 SEC[employer] OFFICER Oxycodone No 10 mg, Memori a Hydrochlori 10-03 Route: PO, l de 5 MG 19:16: Drug form: Herm faina Oral Tablet 00 TAB, Q4H, Dosing Weight 159.3, kg, PRN Pain Score 7-10, Start date: 10/03/21 13:16:00 [employer] OFFICER, Duration: 30 day, Stop date: 11/02/21 13:15:00 CDT Oxycodone 2021-0 No 10 mg, Memori a Hydrochlori - Route: PO, l de 5 MG 19:16: Drug form: Herm faina Oral Tablet 00 TAB, Q4H, Dosing Weight 159.3, kg, PRN Pain Score 7-10, Start date: 10/03/21 13:16:00 [employer]ILITY OFFICER, Duration: 30 day, Stop date: 11/02/21 13:15:00 CDT sugammadex 2021-0 No Route: IV, M emoria (ANES) 2- Drug form: l 18:37: SOLN, [place] 00 ONCE, Stop date: 10/03/21 12:37:00 [employer] OFFICER sugammadex 2021-0 No Route: IV, M emoria (ANES) 2- Drug form: l 18:37: SOLN, [place] 00 ONCE, Stop date: 10/03/21 12:37:00 SEC[employer] UTILITY OFFICER ondansetron 2021-0 No Route: IV, Memoria (ANES) 2- Drug form: l 18:22: INJ, ONCE, [place] 00 Stop date: 10/03/21 12:22:00 SEC[employer] UTILITY OFFICER ondansetron 2021-0 No Route: IV, Memoria (ANES) 2-22 Drug form: l 18:22: INJ, ONCE, [place] 00 Stop date: 10/03/21 12:22:00 SEC[employer] UTILITY OFFICER Dexamethaso 2021-0 No Notes: David katarzyna ne 2-22 Give with l 18:00: food. (Same As: Decadron) Dexamethaso 2021-0 No Notes: David katarzyna ne 2-22 Give with l 18:00: food. (Same As: Decadron) Hydralazine No Notes: David katarzyna 2-22 (Same as: l 17:50: Apresoline ) Push over 5 minutes Ondansetron 2021-0 No Notes: David katarzyna 2-22 (Same as: l 17:50: Zofran) MEDICATION WASTE Product Size: 4 mg Product Wasted: ___ mg Acetaminoph No Notes: Do M emoria en 325 MG / 2-22 not exceed l Hydrocodone 17:50: 4gm/day of [place] Bitartrate 00 acetaminop 10 MG Oral hen. (Same Tablet as: [place] [[place] 325/10) 10/325] Dilaudid No Notes: Memoria 2-22 Same as l 17:50: Dilaudid [place] Benadryl No Notes: Memoria 2-22 (Same as: l 17:50: Benadryl) [place] 00 phenol No Notes: Memoria 2-22 Chlorasept l 17:50: ic [place] (Same as: Chlorasept ic, Sore Throat [place]) WASTE: F/P - Black; E - Municipal Trash Bin Bisacodyl No Notes: Memori a 2-22 (Same As: l 17:50: Dulcolax, [place] Bisco-Lax) Robaxin No Notes: Memoria 2-22 (Same l 17:50: as:Robaxin ) Melatonin 3 No Notes: David katarzyna MG Extended 2-22 (Same as: l Release 17:50: Melatonin) Herm faina Tablet 00 Tylenol No Notes: Do Memor ia 2-22 not exceed l 17:50: 4 gm/day. [place] 00 (Same as: Tylenol) Reglan No Notes: Memoria 2-22 (Same as: l 17:50: Reglan) [place] Phenergan No Notes: Do Mem oria 2-22 not give l 17:50: IV push. [place] (Same as: Phenergan) Saline No Notes: Memoria Flush 0.9% 2-22 Same as: l 17:50: BD [place] 00 Posiflush Sterile Sodium No 1,000 mL, Memori a Chloride 2-22 Rate: 100 l 0.9% IV 17:50: ml/hr, [place] 1,000 mL 00 Infuse over: 10 hr, Route: IV, Dosing Weight 159.3 kg, Total Volume: 1,000, Start date: 10/03/21 11:50:00 [employer], Duration: 30 day, Stop date: 11/02/21 11:49:00 CDT, BSA: 2.93 m2, 0 Labetalol No 10 mg, 2 David katarzyna 2-22 mL, Route: l 17:50: IVP, Drug form: INJ, Q15Min, Dosing Weight 159.3, kg, PRN Hypertensi on, Start date: 10/03/21 11:50:00 [employer], Duration: 3 doses or times, Stop date: 10/04/21 0:00:00 [employer], 0 Hydralazine No Notes: David katarzyna 2-22 [...] 10 MG Oral hen. (Same Tablet as: [place] [[place] 325/10) 10/325] Dilaudid No Notes: Memoria 2-22 Same as l 17:50: Dilaudid Benadryl No Notes: Memoria 2-22 (Same as: l 17:50: Benadryl) phenol No Notes: Memoria 2-22 Chlorasept l 17:50: ic [place] (Same as: Chlorasept ic, Sore Throat [place]) WASTE: F/P - Black; E - Municipal Trash Bin Bisacodyl No Notes: Memori a 2-22 (Same As: l 17:50: Dulcolax, [place] 00 Bisco-Lax) Robaxin No Notes: Memoria 2-22 (Same l 17:50: as:Robaxin ) Melatonin 3 No Notes: David katarzyna MG Extended 2-22 (Same as: l Release 17:50: Melatonin) Herm faina Tablet Tylenol No Notes: Do Memor ia 10-03 not exceed l 17:50: 4 gm/day. [place] (Same as: Tylenol) Reglan No Notes: Memoria 10-03 (Same as: l 17:50: Reglan) Phenergan No Notes: Do Mem oria 10-03 not give l 17:50: IV push. [place] (Same as: Phenergan) Saline No Notes: Memoria Flush 0.9% 10-03 Same as: l 17:50: BD Posiflush Sterile Sodium No 1,000 mL, Memori a Chloride 10-03 Rate: 100 l 0.9% IV 17:50: ml/hr, [place] 1,000 mL 00 Infuse over: 10 hr, Route: IV, Dosing Weight 159.3 kg, Total Volume: 1,000, Start date: 10/03/21 11:50:00 SECURITY FLEX UTILITY OFFICER, Duration: 30 day, Stop date: 11/02/21 11:49:00 CDT, BSA: 2.93 m2, 0 Labetalol No 10 mg, 2 David katarzyna 2-22 mL, Route: l 17:50: IVP, Drug form: INJ, Q15Min, Dosing Weight 159.3, kg, PRN Hypertensi on, Start date: 10/03/21 11:50:00 SECURITY FLEX UTILITY OFFICER, Duration: 3 doses or times, Stop date: 10/04/21 0:00:00 SECURITY FLEX UTILITY OFFICER, 0 lidocaine No Route: IV, Me moria (ANES) 10-03 Drug form: l 16:45: INJ, ONCE, Stop date: 10/03/21 10:45:00 SECURITY FLEX UTILITY OFFICER rocuronium No Route: IV, M emoria (ANES) 10-03 Drug form: l 16:45: INJ, ONCE, Stop date: 10/03/21 10:45:00 SECURITY FLEX UTILITY OFFICER dexamethaso No Route: IV, Memoria ne (ANES) 10-03 Drug form: l 16:45: INJ, ONCE, Stop date: 10/03/21 10:45:00 SECURITY FLEX UTILITY OFFICER lidocaine No Route: IV, Me moria (ANES) 10-03 Drug form: l 16:45: INJ, ONCE, Stop date: 10/03/21 10:45:00 SECURITY FLEX UTILITY OFFICER rocuronium No Route: IV, M emoria (ANES) 10-03 Drug form: l 16:45: INJ, ONCE, Stop date: 10/03/21 10:45:00 SECURITY FLEX UTILITY OFFICER dexamethaso No Route: IV, Memoria ne (ANES) 10-03 Drug form: l 16:45: INJ, ONCE, Stop date: 10/03/21 10:45:00 SECURITY FLEX UTILITY OFFICER phenylephri No Route: IV, Memoria ne (ANES) 10-03 Drug form: l 16:40: INJ, ONCE, Stop date: 10/03/21 10:40:00 SECURITY FLEX UTILITY OFFICER phenylephri No Route: IV, Memoria ne (ANES) 10-03 Drug form: l 16:40: INJ, ONCE, Stop date: 10/03/21 10:40:00 SECURITY FLEX UTILITY OFFICER Hydralazine No Notes: David katarzyna - (Same as: l 16:37: Apresoline ) Push over 5 minutes Labetalol No 10 mg, 2 David katarzyna 2-22 mL, Route: l 16:37: IVP, Drug form: INJ, Q5Min, Dosing Weight 159.3, kg, PRN Elevated BP, Start date: 10/03/21 10:37:00 SECURITY FLEX UTILITY OFFICER, Duration: 5 doses or times, Stop date: 10/04/21 0:00:00 SECURITY FLEX UTILITY OFFICER, 0 Oxycodone No Notes: Memori a [...] PRN Elevated BP, Start date: 10/03/21 10:37:00 SECURITY FLEX UTILITY OFFICER, Duration: 5 doses or times, Stop date: 10/04/21 0:00:00 SECURITY FLEX UTILITY OFFICER, 0 Oxycodone No Notes: Memori a [...] 16:35: INJ, ONCE, Stop date: 10/03/21 10:35:00 SECURITY FLEX UTILITY OFFICER fentaNYL No Route: IV, Mem oria (ANES) 2-22 Drug form: l 16:35: INJ, ONCE, Stop date: 10/03/21 10:35:00 SECURITY FLEX UTILITY OFFICER propofol 2022-0 No Route: IV, Mem oria (ANES) 2- Drug form: l 16:35: INJ, ONCE, [place] 00 Stop date: 10/03/21 10:35:00 SECURITY FLEX UTILITY OFFICER fentaNYL 2021-0 No Route: IV, Mem oria (ANES) 2- Drug form: l 16:35: INJ, ONCE, [place] 00 Stop date: 10/03/21 10:35:00 SECURITY FLEX UTILITY OFFICER midazolam 2021-0 No Route: IV, Me moria (ANES) 2- Drug form: l 16:24: SOLN, [place] ONCE, Stop date: 10/03/21 10:24:00 SECURITY FLEX UTILITY OFFICER ceFAZolin 2021-0 No Route: IV, Me moria (ANES) 2- Drug form: l 16:24: INJ, ONCE, [place] 00 Stop date: 10/03/21 10:24:00 SECURITY FLEX UTILITY OFFICER midazolam 2021-0 No Route: IV, Me moria (ANES) 2- Drug form: l 16:24: SOLN, [place] 00 ONCE, Stop date: 10/03/21 10:24:00 SECURITY FLEX UTILITY OFFICER ceFAZolin 2021-0 No Route: IV, Me moria (ANES) 2- Drug form: l 16:24: INJ, ONCE, Stop date: 10/03/21 10:24:00 SECURITY FLEX UTILITY OFFICER levETIRAcet 2021-0 No Route: IV, Memoria am (ANES) 2- Drug form: l 100 mg 16:20: INJ, Start Kelly date: 10/03/21 10:20:00 SECURITY FLEX UTILITY OFFICER, Stop date: 10/03/21 11:20:00 SECURITY FLEX UTILITY OFFICER levETIRAcet 2021-0 No Route: IV, Memoria am (ANES) 2- Drug form: l 100 mg 16:20: INJ, Start Kelly date: 10/03/21 10:20:00 SECURITY FLEX UTILITY OFFICER, Stop date: 10/03/21 11:20:00 SECURITY FLEX UTILITY OFFICER propofol 2021-0 No Route: IV, Mem oria (ANES) 10 2- Drug form: l mg 15:26: INJ, Start [place] 00 date: 10/03/21 9:26:00 SECURITY FLEX UTILITY OFFICER, Stop date: 10/03/21 10:26:00 SECURITY FLEX UTILITY OFFICER propofol 2022-0 No Route: IV, Mem oria (ANES) 10 10-03 Drug form: l mg 15:26: INJ, Start [place] date: 10/03/21 9:26:00 SECURITY FLEX UTILITY OFFICER, Stop date: 10/03/21 10:26:00 SECURITY FLEX UTILITY OFFICER Isolyte S No Route: IV, Me moria PH 7.4 10-03 Total l (ANES) 1000 14:26: Volume: Her jones mL 00 1,000, Start date: 10/03/21 8:26:00 SECURITY FLEX UTILITY OFFICER, Stop date: 10/03/21 9:26:00 SECURITY FLEX UTILITY OFFICER Isolyte S No Route: IV, Me moria PH 7.4 10-03 Total l (ANES) 1000 14:26: Volume: Her jones mL 00 1,000, Start date: 10/03/21 8:26:00 SECURITY FLEX UTILITY OFFICER, Stop date: 10/03/21 9:26:00 SECURITY FLEX UTILITY OFFICER Isolyte S No Notes: Memori a PH 7.4 10-03 (Same as: l 1,000 mL 12:35: Isolyte S Herm faina 00 PH7.4, Normosol-R PH 7.4, Plasma-Lyt e A ) Acetaminoph No 1,000 mg, M emoria en 10-03 Route: PO, l 12:35: Drug form: [place] 00 TAB, PRE OP, Dosing Weight 160.3, kg, Priority: NOW, Start date: 10/03/21 6:35:00 SECURITY FLEX UTILITY OFFICER, Duration: 1 doses or times Isolyte S No Notes: Memori a PH 7.4 10-03 (Same as: l 1,000 mL 12:35: Isolyte S Herm faina 00 PH7.4, Normosol-R PH 7.4, Plasma-Lyt e A ) Acetaminoph No 1,000 mg, M emoria en 10-03 Route: PO, l 12:35: Drug form: [place] 00 TAB, PRE OP, Dosing Weight 160.3, kg, Priority: NOW, Start date: 10/03/21 6:35:00 SECURITY FLEX UTILITY OFFICER, Duration: 1 doses or times NS + KCL No Notes: Memoria 20mEq/L 10-03 PREMIX IV l 1000ml 12:00: - Do Not [place] (Premix) 00 Alter 1,000 mL WASTE: F/P - Sink; E - Municipal Trash Bin ceFAZolin + No Notes: David katarzyna sterile 2-22 (Same As: l water 30 mL 12:00: Ancef, Herm faina Kefzol) MEDICATION WASTE Product Size: 1000 mg Product Wasted: ___ mg NS + KCL No Notes: Memoria 20mEq/L 2- PREMIX IV l 1000ml 12:00: - Do Not [place] (Premix) 00 Alter 1,000 mL WASTE: F/P - Sink; E - Municipal Trash Bin ceFAZolin + No Notes: David katarzyna sterile 2-22 (Same As: l water [...] 2-21 Refill(s) l 18:02: [place] 00 Acetaminoph 0 No 1 tab, PO, Memoria en 300 MG / 2-21 PRN, PRN l Codeine 18:02: Headache Sadi n Phosphate 00 1-5, 0 30 MG Oral Refill(s) Tablet [Tylenol with Codeine #3] Zofran 0 No PRN, 0 Memoria 2-21 Refill(s) l 18:02: [place] 00 Sodium 0 No 250 mL, Memoria Chloride 2-21 Rate: To l 0.9% 17:06: prime line [place] (titrate) 00 and flush 250 mL remaining blood products., Dosing Weight 160.3, kg, Route: IV, Total Volume: 250, Start Date: 10/02/21 11:06:00 SECUR[employer]LEX UTILITY OFFICER, Duration: 1 day, Stop date: 10/03/21 11:05:00 SECURITY FLEX UTILITY OFFICER, Replace Every: 24 hr, 0 Sodium 2-0 No 250 mL, Memoria Chloride 10-02 Rate: To l 0.9% 17:06: prime line [place] (titrate) 00 and flush 250 mL remaining blood products., Dosing Weight 160.3, kg, Route: IV, Total Volume: 250, Start Date: 10/02/21 11:06:00 SECURITY FLEX UTILITY OFFICER, Duration: 1 day, Stop date: 10/03/21 11:05:00 SECURITY FLEX UTILITY OFFICER, Replace Every: 24 hr, 0 Acetaminoph 2021-0 No 1 tab, David katarzyna en 325 MG / 05-11 Route: PO, l Hydrocodone 12:17: Drug Form: [place] Bitartrate 00 TAB, 5 MG Oral Dosing Tablet Weight 139.409, kg, ONCE, STAT, Start date: 05/11/21 7:17:00 CDT, Stop date: 05/11/21 7:17:00 CDT Acetaminoph 1-0 No 1 tab, David katarzyna en 325 [...] CDT, Stop date: 05/11/21 2:46:00 CDT Acetaminoph 1-0 No 1,000 mg, M emoria en 05-11 Route: PO, l 07:46: ONCE, [place] Dosing Weight 139.409, kg, Start date: 05/11/21 2:46:00 CDT, Stop date: 05/11/21 2:46:00 CDT Iohexol 1-0 No 100 mL, Memoria 05-11 Route: l 07:23: IVP, Drug [place] 00 Form: SOLN, Dosing Weight 139.409, kg, ONCALL, STAT, Start date: 05/11/21 2:23:00 CDT, Duration: 1 doses or times, Dose = 2.2ml/kg, Max dose = 100ml -- "To be infused by Radiology Staff ONLY" Iohexol No 100 mL, Memoria 9-30 Route: l 07:23: IVP, Drug [place] Form: SOLN, Dosing Weight 139.409, kg, ONCALL, STAT, Start date: 05/11/21 2:23:00 CDT, Duration: 1 doses or times, Dose = 2.2ml/kg, Max dose = 100ml -- "To be infused by Radiology Staff ONLY" ProAir HFA 0 Yes INHALE 2 UT 108 (90 8-26 [facility]) 00:00: EVERY 6 MCG/ACT 00 HOURS inhaler Acetaminoph Acetaminoph 2020-0 No 1{table Acetaminop en-Codeine en-Codeine 8-20 t_as_ne [...] eded} e 300-30 00 MG Acetaminoph Acetaminoph 2020-0 No 1{table Acetaminop en-Codeine en-Codeine 8-20 t_as_ne hen-Codein 300-30 MG 300-30 MG 00:00: eded} e 300-30 00 MG Acetaminoph Acetaminoph 2020-0 No 1{table Acetaminop en-Codeine en-Codeine 8-20 t_as_ne hen-Codein 300-30 MG 300-30 MG 00:00: eded} e 300-30 00 MG Acetaminoph Acetaminoph 2020-0 No 1{table Acetaminop en-Codeine en-Codeine 8-20 t_as_ne [...] IF NEEDED (MAX OF 8 DAILY) amoxicillin 2020-0 Yes TAKE 1 Univ ers -clavulanat 5-24 TABLET BY ity of e 875-125 00:00: MOUTH [place] mg per 00 EVERY 12 Medical tablet HOURS FOR Branch 10 DAYS Kenalog Kenalog 2019-08 No 40mg Common (Triamcinol (Triamcinol 0-12 S pirit one) one) 00:00: - [facility] 00 [facility] Kenalog Kenalog 2019- No 40mg Common (Triamcinol (Triamcinol 0-12 S pirit one) one) 00:00: - [facility] 40mg Common (Triamcinol (Triamcinol 0-12 S pirit one) one) 00:00: - [facility] 00 [facility] Kenalog Kenalog 2019- No 40mg Common (Triamcinol (Triamcinol 0-12 S pirit one) one) 00:00: - [facility] 00 [facility] Kenalog Kenalog 2019-08 No 40mg Common (Triamcinol (Triamcinol 0-12 S pirit one) one) 00:00: - [facility]I 00 [facility] Amoxicillin Amoxicillin 2019-08 2020- No 1{table BID Amoxicilli -Pot -Pot 0-12 10-22 t} n-Pot Clavulanate Clavulanate 00:00: 00:00 Clavulanat 875-125 MG 875-125 MG 00 :00 e 875-125 MG Promethazin Promethazin 2019-0 2020- No Norah 1 tablet Common e HCl e HCl 4-28 05-03 [place] as needed Spirit 00:00: 00:00 for n/v - [facility]I 00 :00 [facility] Bupivicaine Bupivicaine 2020-0 No 4mL Common Nazlini Nazlini 4-06 Spirit 00:00: - [facility]I 00 [facility] Kenalog Kenalog 2019-0 No 40mg Common (Triamcinol (Triamcinol 4-06 S pirit one) one) 00:00: - [facility]I 00 [facility] Bupivicaine Bupivicaine 2019-0 No 4mL Common Nazlini Nazlini 4-06 Spirit 00:00: - [facility] 00 [facility] Kenalog Kenalog 2020-0 No 40mg Common (Triamcinol (Triamcinol 4-06 S pirit one) one) 00:00: - [facility]I 00 [facility] Bupivicaine Bupivicaine 2020-0 No 4mL Common Nazlini Nazlini 4-06 Spirit 00:00: - [facility] 00 [facility] Kenalog Kenalog 2020-0 No 40mg Common (Triamcinol (Triamcinol 4-06 S pirit one) one) 00:00: - [facility]I 00 [facility] Bupivicaine Bupivicaine 2020-0 No 4mL Common Nazlini Nazlini 4-06 Spirit 00:00: - CHI [facility] Kenalog Kenalog 2020-0 No 40mg Common (Triamcinol (Triamcinol 4-06 S pirit one) one) 00:00: - CHI [facility] Bupivicaine Bupivicaine 2020-0 No 4mL Common Nazlini Nazlini 4-06 Spirit 00:00: - CHI [facility] Kenalog Kenalog 2020-0 No 40mg Common (Triamcinol (Triamcinol 4-06 S pirit one) one) 00:00: - [facility]I 00 [facility] ondansetron 2019-0 Yes [id number] 4mg Take 1 Univers (ZOFRAN 3-11 tablet by ity of ODT) 4 mg 00:00: mouth [place] disintegrat 00 every 8 Medic al ing tablet (eight) [place] hours as needed for Nausea and Vomiting (N/V). benzonatate 2019-0 Yes [id number] 200mg Take 1 Univers 200 mg 3-11 capsule by ity of capsule 00:00: mouth 3 [place] 00 (three) Medical times [place] daily as needed for Cough for up to 20 doses. ibuprofen 2020-0 Yes [id number] 600mg Take 1 U nivers 600 mg 3-11 tablet by ity of tablet 00:00: mouth [place] 00 every 6 Medical (six) Branch hours as needed for Pain (scale 4-6). SUMAtriptan SUMAtriptan 2018-0 Yes POURAN inject PRN [place] Succinate 6 [...] Pain Score 4-6, Start date: 07/09/18 16:24:00 SECURITY FLEX UTILITY OFFICER Oxycodone 2017-08 No 5 mg, Memoria Hydrochlori 09-08 Route: PO, l de 5 MG 22:24: Drug form: Herm faina Oral Tablet 00 TAB, ONCE, Dosing Weight 139.409, kg, PRN Pain Score 4-6, Start date: 07/09/18 16:24:00 SECURITY FLEX UTILITY OFFICER Promethazin 2017-08 No Notes: Do M [...] PRN Elevated BP, Start date: 07/09/18 15:26:00 SECURITY FLEX UTILITY OFFICER, Duration: 5 doses or times, Stop [...] l Inhalant 21:26: DOCUMENTAT Her jones Solution ION (Same as: Proventil) Diphenhydra 2017-08 No [...] No Notes: Memoria 09-08 (Same as: l :: Sublimaze) Preservati ve free. Hydralazine 2017-08 No Notes: David katarzyna 09-08 (Same as: l 21:26: Apresoline ) Push over 5 minutes Labetalol 2017-08 No 10 mg, 2 David katarzyna 09-08 mL, Route: l 21:26: IVP, Drug form: INJ, Q5Min, Dosing Weight 139.409, kg, PRN Elevated BP, Start date: 07/09/18 15:26:00 SECURITY FLEX UTILITY OFFICER, Duration: 5 doses or times, Stop date: Limited # of times Insulin 2017-08 No Notes: Memoria Lispro 09-08 (Same as: l :: Humalog ) Roll in palms of hands gently; Do not shake `vigorousl y. "Single Patient Use Only " WASTE: F/P - Black; E - Municipal Trash Bin Stable for 28 days at room temperatur e. Expires in days from ____Date ondansetron 2017-08 No Route: IV, Memoria (ANES) 09-08 Drug form: l 21:19: INJ, ONCE, Stop date: 07/09/18 15:19:00 SECURITY FLEX UTILITY OFFICER ondansetron 2017-08 No Route: IV, Memoria (ANES) 09-08 Drug form: l 21:19: INJ, ONCE, Stop date: 07/09/18 15:19:00 SECURITY FLEX UTILITY OFFICER ceFAZolin 2017-08 No Route: IV, Me moria (ANES) 09-08 Drug form: l 20:43: INJ, ONCE, [place] 00 Stop date: 07/09/18 14:43:00 SECURITY FLEX UTILITY OFFICER lidocaine 2017-08 No Route: IV, Me moria (ANES) 09-08 Drug form: l 20:43: INJ, ONCE, [place] 00 Stop date: 07/09/18 14:43:00 SECURITY FLEX UTILITY OFFICER propofol 2017-08 No Route: IV, Mem oria (ANES) 09-08 Drug form: l 20:43: INJ, ONCE, [place] 00 Stop date: 07/09/18 14:43:00 SECURITY FLEX UTILITY OFFICER fentaNYL 2017-08 No Route: IV, Mem oria (ANES) 09-08 Drug form: l 20:43: INJ, ONCE, Stop date: 07/09/18 14:43:00 SECURITY FLEX UTILITY OFFICER ceFAZolin 2017-08 No Route: IV, Me moria (ANES) 09-08 Drug form: l 20:43: INJ, ONCE, Stop date: 07/09/18 14:43:00 SECURITY FLEX UTILITY OFFICER lidocaine 2017-08 No Route: IV, Me moria (ANES) 09-08 Drug form: l 20:43: INJ, ONCE, Stop date: 07/09/18 14:43:00 SECURITY FLEX UTILITY OFFICER propofol 2017-08 No Route: IV, Mem oria (ANES) 09-08 Drug form: l 20:43: INJ, ONCE, Stop date: 07/09/18 14:43:00 SECURITY FLEX UTILITY OFFICER fentaNYL 2017-08 No Route: IV, Mem oria (ANES) 09-08 Drug form: l 20:43: INJ, ONCE, Stop date: 07/09/18 14:43:00 SECURITY FLEX UTILITY OFFICER metoclopram 2017-08 No Route: IV, Memoria debbie (ANES) 09-08 Drug form: l 20:38: INJ, ONCE, Stop date: 07/09/18 14:38:00 SECURITY FLEX UTILITY OFFICER famotidine 2017-08 No Route: IV, M emoria (ANES) 09-08 Drug form: l 20:38: INJ, ONCE, Stop date: 07/09/18 14:38:00 SECURITY FLEX UTILITY OFFICER dexamethaso 2017-08 No Route: IV, Memoria ne (ANES) 09-08 Drug form: l 20:38: INJ, ONCE, [place] 00 Stop date: 07/09/18 14:38:00 SECURITY FLEX UTILITY OFFICER midazolam 2017-08 No Route: IV, Me moria (ANES) 09-08 Drug form: l 20:38: SOLN, [place] 00 ONCE, Stop date: 07/09/18 14:38:00 SECURITY FLEX UTILITY OFFICER metoclopram 2017-08 No Route: IV, Memoria debbie (ANES) 09-08 Drug form: l 20:38: INJ, ONCE, [place] 00 Stop date: 07/09/18 14:38:00 SECURITY FLEX UTILITY OFFICER famotidine 2017-08 No Route: IV, M emoria (ANES) 09-08 Drug form: l 20:38: INJ, ONCE, Stop date: 07/09/18 14:38:00 SECURITY FLEX UTILITY OFFICER dexamethaso 2017-08 No Route: IV, Memoria ne (ANES) 09-08 Drug form: l 20:38: INJ, ONCE, Stop date: 07/09/18 14:38:00 SECURITY FLEX UTILITY OFFICER midazolam 2017-08 No Route: IV, Me moria (ANES) 09-08 Drug form: l 20:38: SOLN, ONCE, Stop date: 07/09/18 14:38:00 SECURITY FLEX UTILITY OFFICER Lactated 2017-08 No Route: IV, Mem oria Ringers - Total l Injection 19:45: Volume: Kelly nn IV (ANES) 00 1,000, 1000 mL Start date: 07/09/18 13:45:00 SECURITY FLEX UTILITY OFFICER, Stop date: 07/09/18 14:45:00 SECURITY FLEX UTILITY OFFICER Lactated 2017-08 No Route: IV, Mem oria Ringers - Total l Injection 19:45: Volume: Kelly nn IV (ANES) 00 1,000, 1000 mL Start date: 07/09/18 13:45:00 SECURITY FLEX UTILITY OFFICER, Stop date: 07/09/18 14:45:00 SECURITY FLEX UTILITY OFFICER Famotidine 2017-08 No Notes: Memor ia 40 MG Oral 09-08 (Same as: l Tablet 19:37: Pepcid) [place] [Pepcid] Famotidine 2017-08 No Notes: Memor ia 40 MG Oral 09-08 (Same as: l Tablet 19:37: Pepcid) [place] [Pepcid] 00 Celebrex 2017-08 No 200 mg, Memori a 09-08 Route: PO, l 19:00: Drug form: MARITZA CALIXTO, Dosing Weight 140.909, kg, Start date: 07/09/18 13:00:00 SECURITY FLEX UTILITY OFFICER, Duration: 30 day, Stop date: 08/08/18 12:59:00 SECURITY FLEX UTILITY OFFICER Lidocaine 2017-08 No Notes: Memori a Hydrochlori 09-08 Preservati l de 10 MG/ML 19:00: ve free. He rmann Injectable 00 (Same as: Solution Xylocaine MPF) Famotidine 2017-08 No Notes: Memor ia 09-08 (Same as: l 19:00: Pepcid) [place] 00 Can be dilute in 5-10cc NS IVP: Slow IV push over at least 2 minutes. Celebrex 2017-08 No 200 mg, Memori a 09-08 Route: PO, l 19:00: Drug form: [place] 00 CAP, ONCALL, Dosing Weight 140.909, kg, Start date: 07/09/18 13:00:00 SECURITY FLEX UTILITY OFFICER, Duration: 30 day, Stop date: 08/08/18 12:59:00 SECURITY FLEX UTILITY OFFICER Lidocaine 2017-08 No Notes: Memori a Hydrochlori 09-08 Preservati l de 10 MG/ML 19:00: ve free. He r[place] Injectable 00 (Same as: Solution Xylocaine MPF) Famotidine 2017-08 No Notes: Memor ia 09-08 (Same as: l 19:00: Pepcid) [place] 00 Can be dilute in 5-10cc NS IVP: Slow IV push over at least 2 minutes. Zofran 2017-08 No 4 mg, Memoria 09-08 Route: l 18:53: IVP, Drug [place] form: INJ, ONCE, Dosing Weight 139.409, kg, Priority: STAT, Start date: 07/09/18 12:53:00 SECURITY FLEX UTILITY OFFICER, Stop date: 07/09/18 12:53:00 SECURITY FLEX UTILITY OFFICER Zofran 2017-08 No 4 mg, Memoria 09-08 Route: l 18:53: IVP, Drug [place] form: INJ, ONCE, Dosing Weight 139.409, kg, Priority: STAT, Start date: 07/09/18 12:53:00 SECURITY FLEX UTILITY OFFICER, Stop date: 07/09/18 12:53:00 SECURITY FLEX UTILITY OFFICER Tylenol 2017-08 No 1,000 mg, Memor ia 09-08 Route: PO, l 18:20: ONCE, [place] 00 Dosing Weight 140.909, kg, Priority: STAT, Start date: 07/09/18 12:20:00 SECURITY FLEX UTILITY OFFICER, Stop date: 07/09/18 12:20:00 SECURITY FLEX UTILITY OFFICER Tylenol 2017-08 No 1,000 mg, Memor ia 09-08 Route: PO, l 18:20: ONCE, [place] 00 Dosing Weight 140.909, kg, Priority: STAT, Start date: 07/09/18 12:20:00 SECURITY FLEX UTILITY OFFICER, Stop date: 07/09/18 12:20:00 SECURITY FLEX UTILITY OFFICER Insulin 2017-08 No Notes: Memoria Lispro [...] Lactate date: 0.028 07/09/18 MEQ/ML 12:18:00 Injectable SECURITY [employer]LEX UTILITY OFFICER, Solution Duration: 30 day, Stop date: 08/08/18 12:17:00 SECURITY FLEX UTILITY OFFICER, 2.75, m2 Insulin 2017-08 No Notes: Memoria Lispro 09-08 (Same as: l 18:18: Humalog ) [place] 00 Roll in palms of hands gently; [...] Lactate date: 0.028 07/09/18 MEQ/ML 12:18:00 Injectable SECURITY [employer]LEX UTILITY OFFICER, Solution Duration: 30 day, Stop date: 08/08/18 12:17:00 SECURITY FLEX UTILITY OFFICER, 2.75, m2 ceFAZolin + 2017-08 No Notes: David katarzyna sterile 09-08 (Same As: l water 30 mL 12:00: Ancef, Herm faina 00 Kefzol) MEDICATION WASTE Product Size: 1000 mg Product Wasted: ___ mg Lactated 2017-08 No 1,000 mL, David katarzyna Ringers 09-08 Rate: KVO l Injection 12:00: rate, [place] IV 1,000 mL 00 Route: IV, Dosing Weight 140.909 kg, Total Volume: 1,000, Start date: 07/09/18 6:00:00 SECURITY FLEX UTILITY OFFICER, Duration: 30 day, Stop date: 08/08/18 5:59:00 SECURITY FLEX UTILITY OFFICER, 2.75, m2 ceFAZolin + 2017-08 No Notes: David katarzyna sterile 09-08 (Same As: l water 30 mL 12:00: Ancef, Herm faina 00 Kefzol) MEDICATION WASTE Product Size: 1000 mg Product Wasted: ___ mg Lactated 2017-08 No 1,000 mL, David katarzyna Ringers 09-08 Rate: KVO l Injection 12:00: rate, [place] IV 1,000 mL 00 Route: IV, Dosing Weight 140.909 kg, Total Volume: 1,000, Start date: 07/09/18 6:00:00 SECURITY FLEX UTILITY OFFICER, Duration: 30 day, Stop date: 08/08/18 5:59:00 SECURITY FLEX UTILITY OFFICER, 2.75, m2 Norvasc 2017-08 Yes See Memoria 09-07 Instructio l 18:43: ns, PO [place] 00 Daily, 0 Refill(s) Norvasc 2017-08 Yes See Memoria 09-07 Instructio l 18:43: ns, PO [place] 00 Daily, 0 Refill(s) Amlodipine 2017-08 Yes See Memoria 09-07 Instructio l 18:42: ns, PO [place] 00 Daily, 0 Refill(s) Amlodipine 2017-08 Yes See Memoria 09-07 Instructio l 18:42: ns, PO [place] 00 Daily, 0 Refill(s) amLODIPine amLODIPine 2017-08 Yes POURAN 1 QD TAKE 1 UT Besylate 10 Besylate 10 0-23 BENJA TABLET [facility] MG Oral MG Oral 00:00: M.D. DAILY. ans Tablet Tablet 00 No known 2018- No No known Metho di medications 0-14 [...] Memoria 0-05 (Same l 11:34: as:MORPhin [place] e Sulfate) Morphine 2017- No Notes: Memoria 0-05 (Same l 11:34: as:MORPhin [place] 00 e Sulfate) Dexamethaso 2017- No 8 mg, Memor ia [...] 1 tablet Commo n [place] as needed [facility] Losartan Losartan Yes Norah 1 tablet C ommon Potassium-H Potassium-H [place] [facility] CTZ CTZ [facility] Hydrocodone Hydrocodone Yes Norah 1 tablet Common -Acetaminop -Acetaminop [place] as needed [facility] hen [facility] Adderall XR Adderall XR Yes Norah 1 capsule Common [place] in the [facility] Omeprazole Omeprazole Yes Norah 1 capsule Common [place] 30 minutes [facility] before [facility] Dicyclomine Dicyclomine Yes Norah 1 tablet Common HCl HCl [place] [facility] Omeprazole Omeprazole No QD Omeprazole 40 MG [...] Source Name Name influenza virus 2022-05-19 Completed [facility] vaccine, inactivated 15:57:00 Influenza, 2022-05-19 Completed [facility] injectable, 00:00:00 quadrivalent (afluria, fluzone) Influenza, 2022-05-19 Completed [facility] injectable, 00:00:00 quadrivalent (afluria, fluzone) Influenza, 2022-05-19 Completed [facility] injectable, 00:00:00 quadrivalent (afluria, fluzone) Influenza, 2022-05-19 Completed [facility] injectable, 00:00:00 quadrivalent (afluria, fluzone) COVID-19 Pfizer & 2021-05-06 [facility] Vacc[facility]:00 COVID-19 Pfizer & 2021-05-06 [facility]:00 (PURPLE-DILUTE) COVID-19 Pfizer 2021-05-06 Com[facility] Vacc[facility] 00:00:00 (PURPLE-DILUTE) COVID-19 Pfizer & 2021-05-06 [facility]pleted [facility] Vacc[facility] 00:00:00 (PURPLE-DILUTE) COVID-19 Pfizer 2021-05-06 [facility] Vacc[facility] 00:00:00 (PURPLE-DILUTE) COVID-19 Pfizer 2021-05-06 [facility] Vacc[facility] 00:00:00 (PURPLE-DILUTE) COVID-19 Pfizer 2021-05-06 [facility] [...] Completed [facility] - (Triamcinolone) (Triamcinolone) 11:35:00 [facility] Kenalog Kenalog 2020-05-23 Completed [facility] - (Triamcinolone) (Triamcinolone) 11:35:00 [facility] Kenalog Kenalog 2020-05-23 Completed [facility] - (Triamcinolone) (Triamcinolone) 11:35:00 [facility] Kenalog Kenalog 2020-05-23 Completed [facility] - (Triamcinolone) (Triamcinolone) 11:35:00 [facility] Kenalog Kenalog 2020-05-23 Completed [facility] - (Triamcinolone) (Triamcinolone) 11:35:00 [facility] Kenalog Kenalog 2020-05-23 Completed [facility] - (Triamcinolone) (Triamcinolone) 11:35:00 [facility] Kenalog Kenalog 2020-05-23 Completed [facility] - (Triamcinolone) (Triamcinolone) 11:35:00 [facility] Bupivicaine Nazlini Bupivicaine Nazlini 2019-11-16 Completed [facility] - 11:23:00 [facility] Bupivicaine Nazlini Bupivicaine Nazlini 2019-11-16 Completed [facility] - 11[facility]23:00 [facility] Bupivicaine Nazlini Bupivicaine Nazlini 2019-11-16 Completed [facility] 11:23:00 [facility] Bupivicaine Nazlini Bupivicaine Nazlini 2019-11-16 Completed [facility] - 11:23:00 [facility] Bupivicaine Nazlini Bupivicaine Nazlini 2019-11-16 Completed [facility] - 11:23:00 [facility] Bupivicaine Nazlini Bupivicaine Nazlini 2019-11-16 Completed [facility] - 11:23:00 [facility] Bupivicaine Nazlini Bupivicaine Nazlini 2019-11-16 Completed [facility] - 11:23:00 [facility] Kenalog Kenalog 2019-11-16 Completed [facility] - (Triamcinolone) (Triamcinolone) 11:22:00 [facility] Kenalog Kenalog 2019-11-16 Completed [facility] - (Triamcinolone) (Triamcinolone) 11::00 [facility] Kenalog Kenalog 2019-11-16 Completed [facility] - (Triamcinolone) (Triamcinolone) 11::00 [facility] Kenalog Kenalog 2019-11-16 Completed [facility] (Triamcinolone) (Triamcinolone) 11::00 [facility] Kenalog Kenalog 2019-11-16 Completed [facility] - (Triamcinolone) (Triamcinolone) 11::00 [facility] Kenalog Kenalog 2019-11-16 Completed [facility] (Triamcinolone) (Triamcinolone) 11::00 [facility] Kenalog Kenalog 2019-11-16 Completed [facility] (Triamcinolone) (Triamcinolone) 11::00 [facility] Fluzone Quadrivalent 2018-06-03 [facility] 0.5 ML [facility] 14:35:00 Suspension Vital Signs Vital Name Observation Time Observation Value Comments Source Body height 2023-03-13 190.5 cm [facility] 18:23:00 Body weight 2023-03-13 158 kg [facility] 18:23:00 BMI 2023-03-13 43.54 kg/m2 [facility] 18:23:00 HEIGHT 2022-11-14 184.2 cm 14:00:00 WEIGHT 2022-11-14 [...] [facility] 14:41:00 BMI 2022-07-27 43.62 kg/m2 [facility] 14:41:00 height 2022-06-22 72 [in_i] [facility] - 11:20:00 [facility] weight 2022-06-22 343 [lb_av] [facility] - 11:20:00 [facility] temperature 2022-06-22 96.5 [degF] [facility] - 11:20:00 [facility] bmi 2022-06-22 46.51 kg/m2 [facility] - 11:20:00 [facility] oximetry 2022-06-22 97 % [facility] - 11:20:00 [facility] respiratory rate 2022-06-22 18 /min [facility] - 11:20[facility]00 [facility] blood pressure 2022-06-22 141 mm[Hg] [facility] - systolic 11:20:00 [facility] blood pressure 2022-06-22 74 mm[Hg] [facility] - diastolic 11:20:00 [facility] Systolic blood 2022-05-16 110 mm[Hg] [facility] pressure 20:28:00 Diastolic blood 2022-05-16 72 mm[Hg] [facility] pressure 20:28:00 Heart rate 2022-05-16 60 /min [facility] 20:28:00 Body temperature 2022-05-16 36.11 Chrissie [facility] 20:17:00 Body height 2022-05-16 190.5 cm [facility] 20:17:00 Body weight 2022-05-16 158.305 kg [facility] 20:17:00 BMI 2022-05-16 43.62 kg/m2 [facility] 20:17:00 height 2021-04-06 72 [in_i] [facility] - 14:30:00 [facility] weight 2021-04-06 319 [lb_av] [facility] - 14:30:00 [facility] temperature 2021-04-06 98 [degF] [facility] - 14:30:00 [facility] bmi 2021-04-06 43.26 kg/m2 [facility] - 14:30:00 [facility] blood pressure 2021-04-06 121 mm[Hg] [facility] - systolic 14:30:00 [facility] blood pressure 2021-04-06 76 mm[Hg] [facility] - diastolic 14:30:00 [facility] height 2020-07-12 72 [in_i] [facility] - 16:30:00 [facility] weight 2020-07-12 318.3 [lb_av] [facility] - 16:30:00 [facility] temperature 2020-07-12 97.5 [degF] [facility] - 16:30:00 [facility] bmi 2020-07-12 43.16 kg/m2 [facility] - 16:30:00 [facility] oximetry 2020-07-12 97 % [facility] - 16:30:00 [facility] respiratory rate 2020-07-12 18 /min [facility] - 16:30:00 [facility] blood pressure 2020-07-12 129 mm[Hg] [facility] - systolic 16:30:00 [facility] blood pressure 2020-07-12 64 mm[Hg] [facility] - diastolic 16:30:00 [facility] height 2020-05-23 72 [in_i] [facility] - 11:20:00 [facility] weight 2020-05-23 314.4 [lb_av] [facility] - 11:20:00 [facility] temperature 2020-05-23 97.2 [degF] [facility] - 11:20:00 [facility] bmi 2020-05-23 42.64 kg/m2 [facility] - 11:20:00 [facility] oximetry 2020-05-23 98 % [facility] - 11:20:00 [facility] respiratory rate 2020-05-23 18 /min [facility] - 11:20[facility]00 [facility] blood pressure 2020-05-23 140 mm[Hg] [facility] - systolic 11:20:00 [facility] blood pressure 2020-05-23 74 mm[Hg] [facility] - diastolic 11:20:00 [facility] Systolic blood 2023-01-07 167 mm[Hg] [facility] 21[facility]57 [facility] Diastolic blood 2023-01-07 79 mm[Hg] [facility] 21:28:57 [facility] Heart rate 2023-01-07 104 /min [facility] 21:28:57 [facility] Body temperature 2023-01-07 35.67 Chrissie [facility] 21:28:57 [facility] Respiratory rate 2023-01-07 16 /min [facility] 21:28:57 [facility] Oxygen saturation 2023-01-07 96 /min [facility] in Arterial blood 21:28:57 [facility] oximetry Body height 2023-01-07 190.5 cm [facility] 03:49:11 [facility] Body weight 2023-01-07 162.751 kg [facility] 03:49:11 [facility] BMI 2023-01-07 44.85 kg/m2 [facility] 03:49:11 [facility] Systolic blood 2022-11-14 149 mm[Hg] [facility] pressure 14:13:00 [facility] Diastolic blood 2022-11-14 93 mm[Hg] [facility] pressure 14:13:00 [facility] Heart rate 2022-11-14 73 /min [facility] 14:13:00 [facility] Body temperature 2022-11-14 36.28 Chrissie [facility] 14[facility]00 [facility] Body height 2022-11-[address] [facility] 14:00:00 [facility] Body weight 2022-11-[address] [facility] 14:00:00 [facility] BMI 2022-11-14 48.81 kg/m2 [facility] 14:00:00 [facility] Center Respitory Rate 2022-05-19 [facility] Herm faina 14:30:00 Respitory Rate 2022-05-19 [facility] Anya eisenberg 14:00:00 Systolic (mm Hg) 2022-05-19 [facility] jose alfredo 14:00:00 Diastolic (mm Hg) 2022-05-19 [facility] H ermann 14:00:00 Respitory Rate 2022-05-19 [facility] 13:00:00 Systolic (mm Hg) 2022-05-19 [facility] rmann 13:00:00 Diastolic (mm Hg) 2022-05-19 [facility] ermann 13:00:00 Temperature Oral 2022-05-19 98.3 F [facility] rmann (F) 12:36:32 Systolic (mm Hg) 2022-05-19 [facility] rmann 12:00:00 Diastolic (mm Hg) 2022-05-19 [facility] ermann 12:00:00 Temperature Oral 2022-05-19 97.4 F [facility] rmann (F) 08:24:17 Temperature Oral 2022-05-19 98.5 F [facility] rmann (F) 03:59:28 Height 2022-05-17 190.5 [...] He rmann 00:29:00 Diastolic (mm Hg) 2022-05-13 [facility] ermann 00:29:00 Respitory Rate 2022-05-13 [facility] 00:29:00 Respitory Rate 2022-05-12 [facility] 18:10:00 Systolic (mm Hg) 2022-05-12 [facility] rmann 18:10:00 Diastolic (mm Hg) 2022-05-12 [facility] ermann 18:10:00 Heart Rate 2022-05-12 [facility] 14:49:57 Systolic (mm Hg) 2022-05-12 [facility] He rmann 14:49:51 Diastolic (mm Hg) 2022-05-12 [facility] ermann 14:49:51 Heart Rate 2022-05-12 [facility] [...] n 09:21:01 Temperature Oral 2021-10-[address] [facility] Harpreet rmann (F) 09:20:59 Systolic (mm [...] n 23:44:00 Temperature Oral 2021-10-[address] [facility] Harpreet rmann (F) 23:44:00 Heart Rate 2021-10-05 [facility] 13:48:13 Respitory Rate 2021-10-05 [facility] 13:48:13 Systolic (mm Hg) 2021-10-05 [facility] 13:47:41 Diastolic (mm Hg) 2021-10-05 [facility] 13:47:41 Heart Rate 2021-10-05 [facility] 13:47:41 Temperature Oral 2021-10-[address] [facility] Harpreet rmann (F) 13:47:17 Heart Rate 2021-10-05 [facility] 09:39:43 Respitory Rate 2021-10-05 [facility] 09:39:43 Systolic (mm Hg) 2021-10-05 [facility] 09:39:35 Diastolic (mm Hg) 2021-10-05 [facility] 09:39:35 Temperature Oral 2021-10-05 98.4 F [facility] rmann (F) 09:38:41 Respitory Rate 2021-10-05 [facility] 06:44:26 Systolic (mm Hg) 2021-10-05 [facility] 06:44:17 Diastolic (mm Hg) 2021-10-05 [facility] H ermann 06:44:17 Temperature Oral 2021-10-05 98.7 F [facility] rmann (F) 06:42:51 Height 2021-10-03 190.5 cm [facility] 12:40:00 Weight 2021-10-03 [facility] 12:40:00 BMI Calculated 2021-10-03 [facility] 12:40:00 Height 2021-10-02 190.5 cm [facility] 16:30:00 Weight 2021-10-02 [facility] 16:30:00 BMI Calculated 2021-10-02 [facility] 16:30:00 Systolic (mm Hg) 2021-05-11 [facility] rmann 13:50:00 Diastolic (mm Hg) 2021-05-11 [facility] ermann 13:50:00 Temperature Oral 2021-05-11 98.5 F [facility] rmann (F) 13:50:00 Systolic (mm Hg) 2021-05-11 [facility] rmann 12:22:00 Diastolic (mm Hg) 2021-05-11 [facility] H ermann 12:22:00 Systolic (mm Hg) 2021-05-11 [facility] He rmann 11:21:00 Diastolic (mm Hg) 2021-05-11 [facility] ermann 11:21:00 Respitory Rate 2021-05-11 [facility] 11:21:00 Respitory Rate 2021-05-11 [facility] 10:42:00 Respitory Rate 2021-05-11 [facility] 09:02:00 Temperature Oral 2021-05-11 98.4 F [facility] rmann (F) 08:30:00 Heart Rate 2021-05-11 [facility] 06:50:00 Heart Rate 2021-05-11 [facility] 06:18:00 Heart Rate 2021-05-11 [facility] 00:55:00 Temperature Oral 2021-05-11 98.2 F [facility] rmann (F) 00:55:00 BP Systolic 2018-10-02 155 mm[Hg] Location: LUE; [facility] 15:26:00 Position: Sitting BP Diastolic 2018-10-02 88 mm[Hg] Location: LUE; [facility] 15:26:00 Position: Sitting Height 2018-10-02 75 [...] 10:25:00 Temperature 2018-09-25 98.3 [degF] Method: Oral [facility] 10:25:00 O2 SAT 2018-09-25 99 % [facility] 10:25:00 Systolic (mm Hg) 2018-07-10 [facility] rmann 00:00:00 Diastolic (mm Hg) 2018-07-10 [facility] ermann 00:00:00 Respitory Rate 2018-07-10 [facility] faina 00:00:00 Systolic (mm Hg) 2018-07-09 [facility] rmann 23:45:00 Diastolic (mm Hg) 2018-07-09 [facility] ermann 23:45:00 Respitory Rate 2018-07-09 [facility] [...] BP Systolic 2018-06-03 136 mm[Hg] Location: LUE; [facility] 14:09:00 Position: Sitting BP Diastolic 2018-06-03 75 mm[Hg] Location: LUE; [facility] 14:09:00 Position: Sitting Height 2018-06-03 75 [...] [facility] 12:29:00 Heart Rate 2018-05-16 Magdalene Avitia n 12:29:00 Temperature Oral 2018-05-16 98.4 F Magdalene Mullins rmann (F) 12:29:00 Systolic (mm Hg) 2018-05-16 Magdalene Mullins rmann 11:50:00 Diastolic (mm Hg) 2018-05-16 Magdalene Chaudhry ermann 11:50:00 Heart Rate 2018-05-16 Magdalene Avitia n 11:50:00 Respitory Rate 2018-05-16 Magdalene Joyner fania 11:50:00 Temperature Oral 2018-05-16 98.8 F Magdalene Mullins rmann (F) 10:56:00 Weight 2018-05-16 Magdalene Avitia n 10:56:00 Procedures Procedure Date / Time Performing Clinician Source Performed CBC WITH PLATELET AND 2023-01-07 09:31:00 [facility] DIFFERENTIAL COMPREHENSIVE METABOLIC 2023-01-07 09:31:00 [facility] PANEL ESTIMATED GFR 2023-01-07 09:31:00 [facility] BLOOD CULTURE, AEROBIC & 2023-01-07 05:36:00 [facility] ANAEROBIC BLOOD CULTURE, AEROBIC & 2023-01-07 05:34:00 [facility] ANAEROBIC CT HEAD WO CONTRAST 2023-01-07 03:33:37 Karen Mendoza [facility] URINE CULTURE 2023-01-07 01:58:00 Karen Mendoza [facility] URINALYSIS SCREEN AND 2023-01-07 01:58:00 Karen Mendoza [facility] MICROSCOPY, WITH REFLEX TO CULTURE ABO AND RH CONFIRMATION BY 2023-01-07 00:55:00 Karen Mendoza [facility] PROTOCOL CTA ABD/PEL FOR BLEEDING 2023-01-07 00:48:48 Karen Mendoza [facility] CBC WITH PLATELET AND 2023-01-06 23:02:00 Karen Mendoza [facility] DIFFERENTIAL PROTHROMBIN TIME WITH INR 2023-01-06 23:02:00 Karen Mendoza [facility] PARTIAL THROMBOPLASTIN 2023-01-06 23:02:00 Karen Mendoza [facility] TIME (PTT) COMPREHENSIVE METABOLIC 2023-01-06 23:02:[address] [facility] PANEL AMYLASE LEVEL 2023-01-06 23:02:00 Karen Mendoza [facility] LIPASE LEVEL 2023-01-06 23:02:00 Karen Mendoza [facility] TYPE AND SCREEN 2023-01-06 23:02:00 Karen Mendoza [facility] ESTIMATED GFR 2023-01-06 23:02[facility] Injection, epidural, of 2022-05-18 17:43:21 David Cedeño blood or clot patch REFERRAL- REQUEST/RESPONSE 2021-03-30 05:01:00 Doctor Unassigned , [facility] Myringotomy 2020-10-10 00:00:00 [facility] Her jones [U] XRAY KNEE 4 OR MORE 2018-07-24 00:00:00 [facility] S RIGHT [id number] Emg/Ncv 2018-06-20 00:00:00 [facility] Sleep Lab - Sleep 2018-06-03 00:00:00 [facility] Phkatarzyna sicbreezy Study Split Night Ulnar nerve decompression 2017-08-12 00:00:00 K[place] morial [place] Ulnar nerve decompression 2015-08-12 00:00:00 [facility] morisania [facility] Extraction of wisdom tooth [facility] Append[facility] History of Cubital [facility] [...] Medical Ce nter Vaccine (#1)] Future Scheduled 2023-03-16 Pneumococcal Vaccine: [facility] Test 12:35:05 Pediatrics (0 to 5 Years) and At-Risk Patients (6 to 64 Years) (1 - PCV) [code = Pneumococcal Vaccine: Pediatrics (0 to 5 Years) and At-Risk Patients (6 to 64 Years) (1 - PCV)] Future Scheduled 2023-03-16 Hepatitis C screening [facility] Test 12:35:05 (procedure) [code = 592788740] Future Scheduled 2023-03-16 COVID-19 VACCINE (3 - [facility] Test 12:35:05 Pfizer series) [code = COVID-19 VACCINE (3 - Pfizer series)] Future Scheduled 2023-03-16 INFLUENZA VACCINE [code [facility] Test 12:35:05 = INFLUENZA VACCINE] Future Scheduled 2023-03-08 Pneumococcal Vaccine: [facility] Test 14:34:41 Pediatrics (0 to 5 Years) and At-Risk Patients (6 to 64 Years) (1 - PCV) [code = Pneumococcal Vaccine: Pediatrics (0 to 5 Years) and At-Risk Patients (6 to 64 Years) (1 - PCV)] Future Scheduled 2023-03-08 Hepatitis C screening [facility] Test 14:34:41 (procedure) [code = 729024959] Future Scheduled 2023-03-08 COVID-19 VACCINE (3 - [facility] Test 14:34:41 Pfizer series) [code = COVID-19 VACCINE (3 - Pfizer series)] Future Scheduled 2023-03-08 INFLUENZA VACCINE [code [facility] Test 14:34:41 = INFLUENZA VACCINE] Future Scheduled 2023-03-04 Pneumococcal Vaccine: [facility] Test 12:22:41 Pediatrics (0 to 5 Years) and At-Risk Patients (6 to 64 Years) (1 - PCV) [code = Pneumococcal Vaccine: Pediatrics (0 to 5 Years) and At-Risk Patients (6 to 64 Years) (1 - PCV)] Future Scheduled 2023-03-04 Hepatitis C screening [facility] Test 12:22:41 (procedure) [code = 075884545] Future Scheduled 2023-03-04 COVID-19 VACCINE (3 - [facility] Test 12:22:41 Pfizer series) [code = COVID-19 VACCINE (3 - Pfizer series)] Future Scheduled 2023-03-04 INFLUENZA VACCINE [code [facility] Test 12:22:41 = INFLUENZA VACCINE] Future Scheduled 2023-02-11 Pneumococcal Vaccine: [facility] Test 11:22:44 Pediatrics (0 to 5 Years) and At-Risk Patients (6 to 64 Years) (1 - PCV) [code = Pneumococcal Vaccine: Pediatrics (0 to 5 Years) and At-Risk Patients (6 to 64 Years) (1 - PCV)] Future Scheduled 2023-02-11 Hepatitis C screening [facility] Test 11:22:44 (procedure) [code = 849415607] Future Scheduled 2023-02-11 COVID-19 VACCINE (3 - [facility] Test 11:22:44 Pfizer series) [code = COVID-19 VACCINE (3 - Pfizer series)] Future Scheduled 2023-02-11 INFLUENZA VACCINE [code [facility] Test 11:22:44 = INFLUENZA VACCINE] Future Scheduled 2023-01-26 [facility] Test 16:56:13 Pediatrics (0 to 5 Years) and At-Risk Patients (6 to 64 Years) (1 - PCV) [code = Pneumococcal Vaccine: Pediatrics (0 to 5 Years) and At-Risk Patients (6 to 64 Years) (1 - PCV)] Future Scheduled 2023-01-26 [facility] 16:56:13 (procedure) [code = 457694392] Future Scheduled 2023-01-26 COVID-19 VACCINE (3 - [facility] Test 16:56:13 Pfizer series) [code = COVID-19 VACCINE (3 - Pfizer series)] Future Scheduled 2023-01-26 INFLUENZA VACCINE [code [facility] Test 16:56:13 = INFLUENZA VACCINE] Future Scheduled 2022-12-12 COVID-19 VACCINE (#1) [facility] Test 13:32:14 [code = COVID-19 VACCINE (#1)] Future Scheduled 2022-12-12 INFLUENZA VACCINE [code [facility] Test 13:32:14 = INFLUENZA VACCINE] Future Scheduled 2022-12-12 COVID-19 VACCINE (#1) [facility] Test 13:32:14 [code = COVID-19 VACCINE (#1)] Future Scheduled 2022-12-12 INFLUENZA VACCINE [code [facility] Test 13:32:14 = INFLUENZA VACCINE] Future Scheduled 2022-09-18 COVID-19 VACCINE (#1) [facility] Test 11:55:25 [code = COVID-19 VACCINE (#1)] Future Scheduled 2022-09-18 INFLUENZA VACCINE [code [facility] Test 11:55:25 = INFLUENZA VACCINE] Future Scheduled 2022-09-18 COVID-19 VACCINE (#1) [facility] Test 11:55:25 [code = COVID-19 VACCINE (#1)] Future Scheduled 2022-09-18 INFLUENZA VACCINE [code [facility] Test 11:55:25 = INFLUENZA VACCINE] Future Scheduled 2022-09-07 [facility]19 [facility]ACCINE (#[facility] 19:13:43 [code = COVID-19 VACCINE (#1)] Future Scheduled 2022-09-07 INFLUENZA VACCINE [code [facility] Test 19:13:43 = INFLUENZA VACCINE] Future [...] (12+)] Future Scheduled 2022-07-28 [facility] 16:56:35 [code = COVID-19 VACCINE (#1)] Future Scheduled 2022-07-28 INFLUENZA VACCINE [code [facility] Test 16:56:35 = INFLUENZA VACCINE] Future Scheduled 2022-07-28 COVID[facility] 16:56:35 [code = COVID-19 VACCINE (#1)] Future Scheduled 2022-07-28 INFLUENZA VACCINE [code [facility] Test 16:56:35 = INFLUENZA VACCINE] Future Scheduled 2022-04-13 HEPATITIS B VACCINES (1 [facility] Test 21:38:54 of 3 - 3-dose series) [code = HEPATITIS B VACCINES (1 of 3 - 3-dose series)] Future Scheduled 2022-04-13 COVID-19 VACCINE (#1) [facility] Test 21:38:54 [code = COVID-19 VACCINE (#1)] Future Scheduled 2022-04-13 INFLUENZA VACCINE [code [facility] Test 21:38:54 = INFLUENZA VACCINE] Future Scheduled 2022-04-13 HEPATITIS B VACCINES (1 [facility] Test 21:38:54 of 3 - 3-dose series) [code = HEPATITIS B VACCINES (1 of 3 - 3-dose series)] Future Scheduled 2022-04-13 COVID-19 VACCINE (#1) [facility] Test 21:38:54 [code = COVID-19 VACCINE (#1)] Future Scheduled 2022-04-13 INFLUENZA VACCINE [code [facility] Test 21:38:54 = INFLUENZA VACCINE] Future Scheduled 2022-04-13 HEPATITIS B VACCINES (1 [facility] Test 21:38:54 of 3 - 3-dose series) [code = HEPATITIS B VACCINES (1 of 3 - 3-dose series)] Future Scheduled 2022-04-13 [facility] 21:38:54 [code = COVID-19 VACCINE (#1)] Future Scheduled 2022-04-13 INFLUENZA VACCINE [code [facility] Test 21:38:54 = INFLUENZA VACCINE] Future Scheduled 2022-04-13 HEPATITIS B VACCINES (1 [facility] Test 21:38:54 of 3 - 3-dose series) [code = HEPATITIS B VACCINES (1 of 3 - 3-dose series)] Future Scheduled 2022-04-13 COVID-19 VACCINE (#1) [facility] Test 21:38:54 [code = COVID-19 VACCINE (#1)] Future Scheduled 2022-04-13 INFLUENZA VACCINE [code [facility] Test 21:38:54 = INFLUENZA VACCINE] Future Scheduled 2022-04-13 HEPATITIS B VACCINES (1 [facility] Test 21:38:54 of 3 - 3-dose series) [code = HEPATITIS B VACCINES (1 of 3 - 3-dose series)] Future Scheduled 2022-04-13 COVID-19 VACCINE (#1) [facility] Test 21:38:54 [code = COVID-19 VACCINE (#1)] Future Scheduled 2022-04-13 INFLUENZA VACCINE [code [facility] Test 21:38:54 = INFLUENZA VACCINE] Future Scheduled 2022-04-13 HEPATITIS B VACCINES (1 [facility] Test 21:38:54 of 3 - 3-dose series) [code = HEPATITIS B VACCINES (1 of 3 - 3-dose series)] Future Scheduled 2022-04-13 COVID-19 VACCINE (#1) [facility] Test 21:38:54 [code = COVID-19 VACCINE (#1)] Future Scheduled 2022-04-13 INFLUENZA VACCINE [code [facility] Test 21:38:54 = INFLUENZA VACCINE] Future [...] [facility] Test 00:00:00 [code = [id number]] Medical Ce nter Future Scheduled 2015 Lipid panel (procedure) [facility] Test 00:00:00 [code = 56941419] Medical Ce nter Future Scheduled 2015 Lipid panel (procedure) [facility] Test 00:00:00 [code = 46208518] Medical Ce nter Future Scheduled 2015 Lipid panel (procedure) [facility] Test 00:00:00 [code = 89452751] Medical Ce nter Future Scheduled 2015 Lipid panel (procedure) [facility] Test 00:00:00 [code = 09827470] Medical Ce nter Future Scheduled 2015 Lipid panel (procedure) [facility] Test 00:00:00 [code = 85550423] Medical Ce nter Future Scheduled 2015 Lipid panel (procedure) [facility] Test 00:00:00 [code = 74328398] Medical Ce nter Future Scheduled 1999 DTAP/TDAP/TD [...] [facility]procedure[facility] [code = 249194227] Future Scheduled 1995 Human immunodeficiency [facility] 00:[facility]00 [facility] screening [facility] (procedure) [code = 992230696] Future Scheduled 1995 Human immunodeficiency [facility] 00:00:00 virus screening [facility] (procedure) [code = 057595000] Future Scheduled COVID-19 VACCINE (1) [facility] Test [code = COVID-19 VACCINE (1)] Future Scheduled Hepatitis C screening [facility] Test (procedure) [code = 000274582] Future Scheduled INFLUENZA VACCINE [code [facility] Test = INFLUENZA VACCINE] Encounters Start End Encounter Admission Attending Care Care Encounter Source Date/Time Date/Time Type Type Clinicians Facility Department ID 2023-02-19 Outpatient [facility] [id number] [place] 08:16:07 [id number] [facility] 2023-02-18 Outpatient [facility] [id number] [place] 07:32:15 [id number] [facility] 2023-02-04 Outpatient [facility] [id number] [place] 16:00:55 [id number] [facility] 2023-01-04 Outpatient [facility] [id number] [place] 10:29:46 [id number] [facility] 2022-12-21 Outpatient Vazquez, STLMLC STLMLC [id number] [facility] 09:37:00 [facility] [id number] [facility] 2022-09-27 Outpatient [facility] [id number] [place] 15:49:39 [id number] [facility] 2022-09-25 Outpatient Vazquez, STLMLC STLMLC [id number] Common 10:35:01 [facility] [id number] [facility] 2022-09-20 Outpatient [facility] [id number] [place] 09:01:19 [id number] [facility] 2022-09-18 Outpatient [facility] [id number] [place] 13:05:14 [id number] [facility] 2022-09-04 Outpatient [facility] [id number] [place] 09:48:26 [id number] [facility] 2022-09-03 Outpatient [facility] [id number] [place] 10:22:47 [id number] [facility] 2022-08-15 Outpatient [facility] [id number] [place] 08:54:00 [id number] [facility] 2022-07-30 Outpatient [facility] [id number] [place] 09:03:26 [id number] [facility] 2022-07-27 Outpatient [facility] [id number] [place] 09:39:00 [id number] [facility] 2022-06-22 Outpatient Vazquez, STLMLC STLMLC [id number] Common 11:03:01 [facility] 95298 [facility] 2022-06-20 Outpatient [facility] [id number] [place] 15:53:00 [id number] [facility] 2022-06-20 Outpatient Vazquez, STLMLC STLMLC [id number] Common 09:33:01 John [id number] [facility] 2022-06-19 Outpatient [facility] [id number] [place] 15:00:31 [id number] [facility] 2022-06-12 Outpatient [facility] [id number] [place] 09:35:34 [id number] [facility] 2022-05-25 Outpatient [facility] [id number] [place] 13:39:31 [id number] [facility] 2021-10-25 Outpatient MIGUEL ANGEL, [facility] ANAY 7506 [facility] 11:23:00 MIAMI 2021-09-28 Outpatient DAY, NOAH [facility] [id number] [place] 16:10:44 [facility] 2021-09-06 Outpatient Vazquez, STLMLC STLMLC [id number] Common 12:12:10 John [id number] [facility] 2021-09-06 Outpatient Vazquez, STLMLC STLMLC [id number] Common 12:10:54 John [id number] [facility] 2021-09-06 Outpatient Vazquez, STLMLC STLMLC [id number] Common 12:09:52 John [id number] [facility] 2021-09-06 Outpatient Vazquez, STLMLC STLMLC [id number] Common 11:54:05 John [id number] [facility] 2021-09-06 Outpatient Vazquez, STLMLC STLMLC [id number] Common 11:06:57 John [id number] [facility] 2021-09-06 Outpatient Vazquez, STLMLC STLMLC [id number] Common 11:06:47 John [id number] [facility] 2021-04-18 Outpatient PATKI, [facility] [id number] [place] 14:45:53 JUNIOR [facility] 2023-04-23 2023-04-23 Outpatient YUKSEL, [facility] [id number] [place] 15:15:00 15:15:00 [facility] 2023-04-23 2023-04-23 Outpatient NANETTE HONEYCUTT [facility] [id number] [place] 14:00:00 14:00:00 Health 2023-03-13 2023-03-13 Office EUNICE Cullen 6400 1.2.840.114 [id number] [place] 13:00:00 13:52:59 Visit Manasa KING 350.1.13.58 Health 9.2.7.2.686 [id number] 5 2023-03-07 2023-03-07 Outpatient ALYSE, [facility] [id number] [place] 14:15:00 14:15:00 Critical access hospital 2023-02-14 2023-02-19 Inpatient ALYSE, [facility] [id number] [facility] 09:24:00 17:51:00 [facility] 2023-01-10 2023-01-10 Outpatient JEWELL [facility] [id number] [place] 13:00:00 13:00:00 Karthik WILHELM 2023-01-06 2023-01-07 Emergency [facility] K. 1.2.840.1 [id number] Methodi 17:24:00 18:25:00 Julian Sexton 19866.1.[address] [place], Aidan 3.430.2.7 Hospita .3.439470 l .8 2023-01-06 2023-01-07 Emergency [facility] K. 1.2.840.1 [id number] Methodi 17:24:00 18:25:00 Julian Sexton 91754.1.[address] [place], Aidan 3.430.2.7 Hospita .3.946334 l .8 2023-01-06 2023-01-06 Travel 1.2.840.1 1.2.018.002 [id number] Methodi 00:00:00 00:00:[address] 3.430.2.7 0.2.7.3.698 Ho spita .3.810557 084.8 l .8 2023-01-06 2023-01-06 Travel 1.2.840.1 1.2.121.763 [id number] Methodi 00:00:00 00:00:[address] 3.430.2.7 0.2.7.3.698 Ho spita .3.557004 084.8 l .8 2022-11-14 2022-11-14 [facility] [id number] 14:30:00 15:33:44 Visit [facility] 2022-11-14 2022-11-14 Office LIS[facility]ET [facility] [id number] 14:30:00 15:33:44 Visit [facility] 2022-09-28 2022-09-28 Office SaharasukumarlisbetEUNICE 6400 1.2.840.114 [id number] [place] 15:00:00 16:43:[address] 350.1.13.58 Health 9.2.7.2.686 [id number] 5 2022-09-26 2022-09-26 Outpatient ALYSE [facility] [id number] [place] 13:15:00 13:15:00 [facility] 2022-09-20 2022-09-21 Outpt Diag IE [facility] [id number] [facility] 19:41:00 05:59:00 Services Outpatient 03 l Imaging Davidson Cedeño 2022-09-20 2022-09-20 Office EUNICE CULLEN 6400 1.2.840.114 [id number] [place] 08:45:00 08:45:[address] 350.1.13.58 Health 9.2.7.2.686 [id number] 5 2022-08-16 2022-08-16 Outpatient CAITLIN [facility] [id number] [place] 14:30:00 14:30:00 [employer] 2022-08-01 2022-08-01 Outpatient CAITLIN [facility] [id number] [place] 11:00:00 11:00:00 [employer] 2022-07-27 2022-07-27 Office Alyse, UTP 6400 1.2.840.114 [id number] [place] 08:30:00 09:48:28 Visit Manasa JOYCE 350.1.13.58 [facility] 9.2.7.2.686 [id number] 5 2022-07-25 2022-07-25 (TEL) STLMLC STLMLC [id number] Co mmon 00:00:00 00:00:00 [facility] 2022-06-22 2022-06-22 (TEL) STLMLC STLMLC [id number] Co mmon 00:00:00 00:00:00 [facility] 2022-06-22 2022-06-22 OFFICE STLC STLC [id number] Co mmon 00:00:00 00:00:00 VISIT [facility] 4 [facility] 2022-06-20 2022-06-20 Outpatient DAY, NOAH [facility] [id number] [place] 14:00:00 14:00:00 [facility] 2022-06-13 2022-06-13 Outpatient DAY, NOAH [facility] [id number] [place] 13:15:00 13:15:00 [facility] 2022-06-06 2022-06-06 (TEL) STLC STLC [id number] Co mmon 00:00:00 00:00:00 [facility] 2022-06-06 2022-06-06 (TEL) STLC STLC [id number] Co mmon 00:00:00 00:00:00 [facility] 2022-05-16 2022-05-19 [facility] [id number] Memoria 21:39:42 16:40:00 marga Cedeño [address] [place] [address] 2022-05-17 2022-05-19 Outpatient E DAY, NOAH [facility] [address] [facility] 10:13:00 11:40:00 2022-05-16 2022-05-16 Office DAY, NOAH [facility] 6400 1.2.840.114 1 [id number] [place] 15:45:00 15:45:[address] 350.1.13.58 Health 9.2.7.2.686 [id number] 0 2022-05-12 2022-05-13 Emergency [facility] [id number] [facility] 09:35:00 02:21:[address] 2022-05-12 2022-05-12 Emergency E ROBETRS, [facility] [id number] [facility] 03:16:00 21:21:00 SONIA 2022-03-21 2022-03-21 Outpatient DAY, NOAH [facility] [id number] [place] 15:00:00 15:00:00 Health 2022-03-14 2022-03-14 Telephone Day, Noah UTP 6400 1.2.840.114 [id number] [place] 00:00:00 00:00:[address] 350.1.13.58 Health 9.2.7.2.686 [id number] 0 2022-03-14 2022-03-14 Telephone Patki, UTP 6400 1.2.840.114 [id number] [place] 00:00:00 00:00:[address] 350.1.13.58 Health 9.2.7.2.686 [id number] 3 2022-03-14 2022-03-14 Telephone Day, Noah UTP 6400 1.2.840.114 [id number] [place] 00:00:00 00:00:[address] 350.1.13.58 Health 9.2.7.2.686 [id number] 0 2022-03-13 2022-03-13 Telephone Day, Noah UTP 6400 1.2.840.114 [id number] [place] 00:00:00 00:00:[address] 350.1.13.58 Health 9.2.7.2.686 [id number] 0 2022-01-01 2022-01-01 Telephone Day, Noah UTP 6400 1.2.840.114 [id number] [place] 00:00:00 00:00:[address] 350.1.13.58 Health 9.2.7.2.686 [id number] 0 2021-12-28 2021-12-28 Telephone Day, Noah UTP 6400 1.2.840.114 [id number] [place] 00:00:00 00:00:[address] 350.1.13.58 Health 9.2.7.2.686 [id number] 0 2021-12-06 2021-12-06 Telephone Day, Noah UTP 6400 1.2.840.114 [id number] [place] 00:00:00 00:00:[address] 350.1.13.58 Health 9.2.7.2.686 [id number] 0 2021-11-27 2021-11-27 Telephone Day, Noah UTP 6400 1.2.840.114 [id number] [place] 00:00:00 00:00:[address] 350.1.13.58 Health 9.2.7.2.686 [id number] 0 2021-11-01 2021-11-01 Telephone Day, Noah UTP 6400 1.2.840.114 [id number] [place] 00:00:00 00:00:[address] 350.1.13.58 Health 9.2.7.2.686 [id number] 0 2021-10-30 2021-10-30 Telephone Rae Naranjo UTP 1.2.840 .114 [id number] [place] 00:00:00 00:00:00 Rae Naranjo NIKOLAI 350.1.13.[address]7.2.[address] [facility] [id number] 1 2021-10-27 2021-10-27 Telephone Day, Noah UTP 6410 1.2.840.114 [id number] [place] 00:00:00 00:00:[address] 350.1.13.58 Health 9.2.7.2.686 [id number] 8 2021-10-25 2021-10-26 Outpt Diag nullFlavo [facility] [id number] [facility] 18:11:00 04:59:00 Services r Outpatient 01 l Imaging [place] 2021-10-24 2021-10-24 Telephone Layne Sánchez UTP 6400 1.2.840.1 14 [id number] [place] 00:00:00 00:00:[address] Sán[address] ST 350.1.13.58 Health 9.2.7.2.686 [id number] 3 2021-10-24 2021-10-24 Telephone Day, Noah UTP 6400 1.2.840.114 [id number] [place] 00:00:00 00:00:[address] 350.1.13.58 Health 9.2.7.2.686 [id number] 0 2021-10-20 2021-10-20 Office Miguel AngelEUNICE 1.2.840.114 [id number] [place] 13:30:00 14:18:52 Visit Geronimo MENCHACA 350.1.13.58 H [facility] 9.2.7.2.686 [facility] [id number] 1 2021-10-18 2021-10-19 Outpt Diag nullFlavo [facility] [id number] 06117 [facility] 17:43:00 05:59:00 Services r Outpatient 00 l Imaging Davidson Cedeño 2021-10-18 2021-10-18 Office Day, Noah DAWSON 6400 1.2.840.114 1 [id number] [place] 10:00:00 10:15:[address] 350.1.13.58 Health 9.2.7.2.686 [id number] 0 2021-10-18 2021-10-18 Telephone Day, Noah UTP 6400 1.2.840.114 [id number] [place] 00:00:00 00:00:[address] 350.1.13.58 Health 9.2.7.2.686 [id number] 0 2021-10-18 2021-10-18 Telephone Day, Noah UTP 6400 1.2.840.114 [id number] [place] 00:00:00 00:00:[address] 350.1.13.58 Health 9.2.7.2.686 [id number] 0 2021-10-17 2021-10-17 Telephone Day, Noah UTP 6400 1.2.840.114 [id number] [place] 00:00:00 00:00:[address] 350.1.13.58 Health 9.2.7.2.686 [id number] 0 2021-10-13 2021-10-13 Telephone Day, Noah UTP 6400 1.2.840.114 [id number] [place] 00:00:00 00:00:[address] 350.1.13.58 Health 9.2.7.2.686 [id number] 0 2021-10-08 2021-10-10 Inpatient [facility] [id number] Memoria 23:43:00 15:48:00 [facility] 58 [facility] 2021-10-08 2021-10-10 Inpatient E DAY, NOAH [facility] [address] [facility] 19:58:00 09:48:00 2021-10-03 2021-10-05 Inpatient [facility] [id number] Memoria 11:15:00 16:21:[address] 2021-10-03 2021-10-05 Inpatient DAY, NOAH [facility] [address] [facility] 05:15:00 10:21:00 2021-10-04 2021-10-04 Telephone Day, Noah UTP 6400 1.2.840.114 [id number] [place] 00:00:00 00:00:[address] 350.1.13.58 Health 9.2.7.2.686 [id number] 0 2021-09-28 2021-09-28 Telephone Day, Noah UTP 6400 1.2.840.114 [id number] [place] 00:00:00 00:00:[address] 350.1.13.58 Health 9.2.7.2.686 [id number] 0 2021-09-28 2021-09-28 Telephone Dorothea Delgaidllo UTP 6400 1.2.84 0.114 [id number] [place] 00:00:00 00:00:[address] 350.1.13.58 Health 9.2.7.2.686 [id number] 3 2021-09-22 2021-09-22 Telephone Day, Noah UTP 6400 1.2.840.114 [id number] [place] 00:00:00 00:00:[address] 350.1.13.58 Health 9.2.7.2.686 [id number] 0 2021-09-20 2021-09-20 Telephone Day, Noah UTP 6400 1.2.840.114 [id number] [place] 00:00:00 00:00:[address] 350.1.13.58 Health 9.2.7.2.686 [id number] 7 2021-09-18 2021-09-18 Telephone Amelia Cameron UTP 6400 1.2.840.11 4 [id number] [place] 00:00:00 00:00:[address] 350.1.13.58 Health 9.2.7.2.686 [id number] 5 2021-09-07 2021-09-07 Office Patkenji, UTP 6400 1.2.840.114 [id number] [place] 13:30:00 14:35:[address] 350.1.13.58 Health 9.2.7.2.686 [id number] 3 2021-09-07 2021-09-07 Telephone Stacy, UTP 6400 1.2.840.114 134 [id number] [place] 00:00:00 00:00:[address] 350.1.13.58 Health 9.2.7.2.686 [id number] 3 2021-09-05 2021-09-05 Telephone Stacy, UTP 6400 1.2.840.114 134 [id number] [place] 00:00:00 00:00:[address] 350.1.13.58 Health 9.2.7.2.686 [id number] 3 2021-09-03 2021-09-03 Telephone Patki, UTP 6400 1.2.840.114 133 [id number] [place] 00:00:00 00:00:[address] 350.1.13.58 Health 9.2.7.2.686 [id number] 3 2021-08-02 2021-08-02 Telephone EUNICE Kumar 6400 1.2.840.114 133 [id number] [place] 00:00:00 00:00:[address] 350.1.13.58 Health 9.2.7.2.686 [id number] 3 2021-05-18 2021-05-18 Orders Brii Howard UTP 6400 1.2.840.114 [id number] [place] 00:00:00 00:00:[address] 350.1.13.58 Health 9.2.7.2.686 [id number] 3 2021-05-18 2021-05-18 Orders EUNICE Kumar 6400 1.2.840.114 [id number] [place] 00:00:00 00:00:[address] 350.1.13.58 Health 9.2.7.2.686 [id number] 3 2021-05-15 2021-05-15 Sami EUNICE Kumar 6400 1.2.840.114 127 [id number] [place] 00:00:00 00:00:[address] 350.1.13.58 Health 9.2.7.2.686 [id number] 3 2021-05-11 2021-05-11 Emergency [facility] [id number] [facility] 14:08:[address] 2021-05-11 2021-05-11 [facility] [id number] Co mmon 00:00:00 00:00:00 [facility] 2021-05-09 2021-05-09 Telephone EUNICE Kumar 6400 1.2.840.114 [id number] [place] 00:00:00 00:00:[address] 350.1.13.58 Health 9.2.7.2.686 [id number] 3 2021-05-08 2021-05-08 Telephone Patki, UTP 6400 1.2.840.114 127 [id number] [place] 00:00:00 00:00:00 Junior JOYCE 350.1.13.58 Health 9.2.7.2.686 [id number] 3 2021-05-08 2021-05-08 Telephone Patki, UTP 6400 1.2.840.114 127 [id number] [place] 00:00:00 00:00:00 Junior JOYCE 350.1.13.58 Health 9.2.7.2.686 [id number] 3 2021-05-08 2021-05-08 Telephone Patki, UTP 6400 1.2.840.114 127 [id number] [place] 00:00:00 00:00:00 Junior JOYCE 350.1.13.58 Health 9.2.7.2.686 [id number] 3 2021-05-03 2021-05-03 Office Patki, UTP 6400 1.2.840.114 [id number] [place] 13:38:06 14:42:46 Visit Junior JOYCE 350.1.13.58 Health 9.2.7.2.686 [id number] 3 2021-05-03 2021-05-03 Office Patki, UTP 6400 1.2.840.114 [id number] [place] 13:38:06 14:42:46 Visit Junior JOYCE 350.1.13.58 Health 9.2.7.2.686 [id number] 3 2021-04-18 2021-04-18 Office Patki, UTP 6400 1.2.840.114 [id number] [place] 13:09:45 14:44:18 Visit Junior JOYCE 350.1.13.58 Health 9.2.7.2.686 [id number] 3 2021-04-18 2021-04-18 Office Patki, UTP 6400 1.2.840.114 [id number] [place] 13:09:45 14:44:18 Visit Junior JOYCE 350.1.13.58 [facility] 9.2.7.2.686 [id number] 3 2021-04-06 2021-04-06 OFFICE STLMLC STLMLC [id number] Co mmon 00:00:00 00:00:00 VISIT EST Spir it PT LEVEL 3 - [facility] 2021-04-06 2021-04-06 (TEL) STLMLC STLMLC [id number] Co mmon 00:00:00 00:00:00 [facility] 2021-03-31 2021-03-31 (TEL) STLMLC STLMLC [id number] Co mmon 00:00:00 00:00:00 [facility] 2021-03-30 2021-03-30 Orders Doctor AICHA 1.2.840.114 [id number] 00:00:00 00:00:00 Only Unassigned, ABDULKADIR 350.1.13.10 [place] [facility] 4.2.7.2.686 [id number] 009 2021-03-30 2021-03-30 Orders Doctor AICHA 1.2.840.114 [id number] Univers 00:00:00 00:00:00 Only Unassigned, ABDULKADIR 350.1.13.10 ity of [place] [facility] 4.2.7.2.686 Norberto as [id number] [address] 2021-03-21 2021-03-21 Ancillary 1, Gal UNIVERSIT 1.2.840.114 [id number] 14:21:34 15:15:15 Visit Audio Sound Y 350.1.13.10 [address] 4.2.7.2.686 BANK [id number] BLDG. 141 2021-03-21 2021-03-21 Outpatient R RENZO [facility] [id number] [facility] 13:45:00 13:45:00 FABY busch [facility] 2021-01-17 2021-01-17 Emergency X [facility] ERT [id number] Univers 19:28:00 19:28:00 LAURENCE busch [facility] 2020-11-21 2020-11-21 Emergency X [facility] ERT [id number] Univers 15:51:00 15:51:00 ity [facility] 2020-07-20 2020-07-20 (TEL) STLMLC STLMLC [id number] Co mmon 00:00:00 00:00:00 Spirit - [facility] 2020-07-12 2020-07-12 OFFICE STLMLC STLMLC [id number] Co mmon 00:00:00 00:00:00 VISIT EST Spir it PT LEVEL 3 - [facility] 2020-05-23 2020-05-23 OFFICE STLMLC STLMLC [id number] Co mmon 00:00:00 00:00:00 VISIT EST Spir it PT LEVEL 3 [facility] 2020-02-24 2020-02-24 Outpatient [facility] [id number] Common 14:42:00 14:42:[address] [facility] 2020-02-22 2020-02-22 Outpatient [facility] [id number] Common 13:51:00 13:51:[address] [facility] [address] [facility] 2019-12-10 2019-12-10 Outpatient [facility] 30 [id number] Common 15:39:00 15:39:[address] [facility] 2019-12-08 2019-12-08 Outpatient [facility] [id number] Common 13:40:00 13:40:[address] [facility] 2019-12-07 2019-12-07 Outpatient [facility] 30 [id number] Common 12:05:00 12:05:[address] [facility] 2019-11-16 2019-11-16 Outpatient [facility] [id number] Common 11:00:00 11:00:00 t Bone Bone and Spiri t and Joint [facility] - [facility] 2019-10-21 2019-10-21 Emergency X Blaire [facility] ERT [id number] Univers 11:24:16 14:51:00 ity of [facility] 2019-09-29 2019-09-29 Outpatient [facility] [id number] Common 09:21:00 09:21:00 t Bone Bone and Spiri t and Joint Joint - [facility] 2019-09-21 2019-09-21 Outpatient [facility] 29 [id number] Common 14:00:00 14:00:00 t Bone Bone and Spiri t and Joint Joint - [facility] 2019-03-13 2019-03-13 [facility] [id number] [place] 09:00:00 09:00:00 t; Lesa RODRIGUEZ Ph savannah Roberto M.D. 2018-10-02 2018-10-02 Appointritu YOUSIF [facility] [id number] [place] 15:00:00 15:00:00 t; Asher JONES i, M.D. ans POURAN, M.D. 2018-09-25 2018-09-25 Appointritu [facility] [id number] [place] 10:30:00 10:30:00 t; BRANT CEJA NP Health and Valery GUO NP Wellness [facility] 2018-09-22 2018-09-22 Verito YOUSIF [facility] [id number] [place] 15:30:00 15:30:00 t; Asher JONES i, M.D. ans POURAN, M.D. 2018-08-22 2018-08-22 Verito MUNOZ [facility] [id number] [place] 09:30:00 09:30:00 t; Lesa BRYANT Ph savannah Rios M.D. 2018-07-29 2018-07-29 Verito MUNOZ [facility] [id number] [place] 14:30:00 14:30:00 t; Lesa BRYANT Ph savannah Rios M.D. 2018-07-25 2018-07-25 Verito [facility] Orthopedics [id number] [place] 10:30:00 10:30:00 t; Lesa BRITT at [facility] savannah SCHMITT M.D. 2018-07-22 2018-07-22 [facility] [id number] [place] 11:15:00 11:15:00 t; Lesa BRYANT [facility] [employer] MUNOZ, Orthopedics savannah BRYANT M.D. 2018-07-15 2018-07-15 [facility] [id number] 908 [place] 10:30:00 10:30:00 t; Lesa BRYANT [facility] [employer] MUNOZ, Orthopedics savannah BRYANT M.D. 2018-07-09 2018-07-10 [facility] [id number] Memoria 18:05:00 00:00:00 Surgery r [place] 03 l Poth Kelly 2018-07-09 2018-07-09 [facility] [id number] [place] 13:00:00 13:00:00 t; Lesa BRYANT [place] Rios M.D. 2018-06-30 2018-06-30 [facility] [id number] [place] 10:15:00 10:15:00 t; Lesa BRYANT [facility] [place] Valery MUNOZ, Orthopedics [place] BRYANT M.D. 2018-06-24 2018-06-24 [facility] [id number] Memoria 00:15:00 05:59:00 r [place] 02 l Poth Kelly 2018-06-20 2018-06-20 [facility] [id number] [place] 13:40:00 13:40:00 t; SHANE MONROE [facility] hybeatriz ROTH, Orthopedics a boyd MONROE NP 2018-06-19 2018-06-19 [facility] [id number] [place] 08:15:00 08:15:00 t; GEOVANNA FOLEY D.O. Physici KERRY, ans D.O. 2018-06-17 2018-06-17 [facility] [id number] [place] 15:45:00 15:45:00 t; Lesa BRYANT [facility] [place] Valery MUNOZ, Orthopedics [place] BRYANT M.D. 2018-06-03 2018-06-03 Appointmen EUNICE FOLEY [id number] [place] 13:45:00 13:45:00 t; GEOVANNA FOLEY D.O. [facility] [place] Vora D.O. 2018-05-16 2018-05-16 [facility] [id number] [facility] 10:52:00 13:34:00 r [place] 01 l Poth Kelly nn Results Test Description Test Time Test Comments Results Result Comments Source Urine culture 2023-01-07 02:15:00 Test Item Value Reference Range Interpretation Comme nts Urine culture (test code = 3186798) SEE COMMENT Bacteriuria screen negative. [facility] [id number] 02:15:00 Test Item Value Reference Range Interpretation Comments Urine culture (test SEE COMMENT Bacteriu katarzyna screen code = 2110035) negative. [facility]2023-05-29 02:15:00 Test Item Value Reference Range Interpretation Comments Urine culture (test SEE COMMENT Bacteriu katarzyna screen code = 0135726) negative. [facility]2023-05-29 02:15:00 Test Item Value Reference Range Interpretation Comments Urine culture (test SEE COMMENT Bacteriu katarzyna screen code = 7383913) negative. [facility] [id number] 02:15:00 Test Item Value Reference Range Interpretation Comments Urine culture (test SEE COMMENT Bacteriu katarzyna screen code = 1387513) negative. [id number]:10:35 Test Item Value Reference Range Interpretation [...] mastoideum, similar to prior CT temporal bone. [facility] [id number] 06:16:00 Test Item Value Reference Range Interpretation Comments UA Color (test code = Yellow *NA*(05/19/22 UA Color) 1:16 AM) [facility] [id number] 06:16:00 Test Item Value Reference Range Interpretation Comments UA Turbidity (test code = Clear (05/19/22 1:16 UA Turbidity) AM) [facility] [id number] 06:16:00 Test Item Value Reference Range Interpretation Comments UA Spec Grav (test code = UA Spec 1.010 [address]) [facility] [id number] 06:16:00 Test Item Value Reference Range Interpretation Comments UA pH (test code = UA pH) 6.0 1 5.0-8.0 [facility] AND [id number] 06:16:00 Test Item Value Reference Range Interpretation Comments UA Protein (test code = UA Negative mg/dL Protein) [facility] AND [id number] 06:16:00 Test Item Value Reference Range Interpretation Comments UA Glucose (test code = UA Negative mg/dL Glucose) [facility] AND [id number] 06:16:00 Test Item Value Reference Range Interpretation Comments UA Ketones (test code = UA Negative mg/dL Ketones) [facility] AND [id number] 06:16:00 Test Item Value Reference Range Interpretation Comments UA Bili (test code = Negative *NA*(05/19/22 UA Bili) 1:16 AM) [facility] AND [id number] 06:16:00 Test Item Value Reference Range Interpretation Comments UA Blood (test code = Negative (05/19/22 1:16 UA Blood) AM) [facility] AND [id number] 06:16:00 Test Item Value Reference Range Interpretation Comments UA Urobilinogen (test code = UA 0.2 0.1-1.0 Urobilinogen) [facility] AND [id number] 06:16:00 Test Item Value Reference Range Interpretation Comments UA Nitrite (test code Negative (05/19/22 1:16 = UA Nitrite) AM) [facility] AND [id number] 06:16:00 Test Item Value Reference Range Interpretation Comments UA Leuk Est (test Negative (05/19/22 1:16 code = UA Leuk Est) AM) [facility] AND [id number] 06:16:00 Test Item Value Reference Range Interpretation Comments UA Sq Epi (test code = UA Sq Epi) Rare /LPF [facility] AND [id number] 06:16:00 Test Item Value Reference Range Interpretation Comments UA WBC (test code = no gt See_Comment [Automa leydi message] The UA WBC) system which ge nerated this result transmit leydi reference range : <=5. The reference range was not used to interpr et this result as krishna l/abnormal. [facility] AND [id number] 06:16:00 Test Item Value Reference Range Interpretation Comments UA RBC (test code = 1 See_Comment [Automa leydi message] The UA RBC) system which ge nerated this result transmit leydi reference range : <=2. The reference range was not used to interpr et this result as krishna l/abnormal. [facility] [employer]2022-10-08 03:27:00 Test Item Value Reference Range Interpretation Comments HS Troponin I Baseline (test code = HS 48 Troponin I Baseline) [facility] [employer] [id number] 03:18:00 Test Item Value Reference Range Interpretation Comments HS Troponin I (test code = HS Troponin 59 I) [facility] [employer] [id number] 03:18:00 Test Item Value Reference Range Interpretation Comments Phosphorus (test code = Phosphorus) 2.7 2.5-4.5 [facility] [employer]2022-10-08 03:18:00 Test Item Value Reference Range Interpretation Comments Magnesium Lvl (test code = Magnesium 2.2 1.8-2.4 Lvl) [facility] GlownetPARATHYROID [id number] 03:18:00 Test Item Value Reference Range Interpretation Comments Ca Ion WB (test code = Ca Ion WB) 1.07 1.05-1.25 [facility] HypereightROID [id number] 03:18:00 Test Item Value Reference Range Interpretation Comments Ca Ion at pH 7.4 WB (test code = Ca Ion 1.09 1.05-1.25 at pH 7.4 WB) [facility] [employer]2022-10-08 01:30:00 Test Item Value Reference Range Interpretation Comments HS Troponin I 1 Hr (test code = HS 41 Troponin I [address]) [facility] [employer]2022-10-08 01:30:00 Test Item Value Reference Range Interpretation Comments HS Troponin I 0 to 1 xxxxxxx (05/18/22 8:30 Hour Delta (test code = PM) HS Troponin I 0 to 1 [address] Delta) [facility] [employer]2022-10-08 01:30:00 Test Item Value Reference Range Interpretation Comments Glucose Lvl (test code = Glucose Lvl) 107 70-99 [facility] [employer]2022-10-08 01:30:00 Test Item Value Reference Range Interpretation Comments BUN (test code = BUN) 18 03-02 [facility] [employer]2022-10-08 01:30:00 Test Item Value Reference Range Interpretation Comments Creatinine Lvl (test code = Creatinine 1.37 0.50-1.40 Lvl) [place] 722562-10-08 01:30:00 Test Item Value Reference Range Interpretation Comments Sodium Lvl (test code = Sodium Lvl) 137 135-145 [place] 722562-10-08 01:30:00 Test Item Value Reference Range Interpretation Comments Potassium Lvl (test code = Potassium 3.8 3.5-5.1 Lvl) [place] 722562-10-08 01:30:00 Test Item Value Reference Range Interpretation Comments Chloride Lvl (test code = Chloride Lvl) 107 95-109 [place] 722562-10-08 01:30:00 Test Item Value Reference Range Interpretation Comments CO2 (test code = CO2) 25 24-32 [place] 722562-10-08 01:30:00 Test Item Value Reference Range Interpretation Comments Calcium Lvl (test code = Calcium Lvl) 9.7 8.5-10.5 [place] 722562-10-08 01:30:00 Test Item Value Reference Range Interpretation Comments Total Protein (test code = Total 7.6 6.4-8.4 Protein) [place] 722562-10-08 01:30:00 Test Item Value Reference Range Interpretation Comments Albumin Lvl (test code = Albumin Lvl) 3.8 3.5-5.0 [place] 722562-10-08 01:30:00 Test Item Value Reference Range Interpretation Comments ALT (test code = ALT) 38 See_Comment [Auto mated message] The system which iKaaz nerated this result transmit leydi reference range : <=65. The reference range was not used to interpr et this result as krishna l/abnormal. [place] 722562-10-08 01:30:00 Test Item Value Reference Range Interpretation Comments AST (test code = AST) 15 See_Comment [Auto mated message] The system which iKaaz nerated this result transmit leydi reference range : <=37. The reference range was not used to interpr et this result as krishna l/abnormal. [place] [address]-10-08 01:30:00 Test Item Value Reference Range Interpretation Comments Alk Phos (test code = Alk Phos) 119 39-136 [address]10-08 01:30:00 Test Item Value Reference Range Interpretation Comments Bili Total (test code = Bili Total) 0.6 0.2-1.3 [place] 722562-10-08 01:30:00 Test Item Value Reference Range Interpretation Comments AGAP (test code = AGAP) 8.8 10.0-20.0 [place] 722562-10-08 01:30:00 Test Item Value Reference Range Interpretation Comments B/C Ratio (test code = B/C Ratio) 13 1 6-25 [place] 722562-10-08 01:30:00 Test Item Value Reference Range Interpretation Comments Globulin (test code = Globulin) 3.8 2.7-4.2 [place] 722562-10-08 01:30:00 Test Item Value Reference Range Interpretation Comments A/G Ratio (test code = A/G Ratio) 1.0 1 0.7-1.6 [place] 722562-10-08 01:30:00 Test Item Value Reference Range Interpretation Comments eGFR (test code = eGFR) 66 [facility]2022-10-08 01:30:00 Test Item Value Reference Range Interpretation Comments Lipase Lvl (test code = Lipase Lvl) 75 73-393 [facility] [id number] 20:19:00 Test Item Value Reference Range Interpretation Comments HS Troponin I (test code = HS Troponin 7 I) [facility]2022-10-07 20:19:00 Test Item Value Reference Range Interpretation Comments Glucose Lvl (test code = Glucose Lvl) 101 70-99 [facility]2022-10-07 20:19:00 Test Item Value Reference Range Interpretation Comments BUN (test code = BUN) 17 7-22 [facility]2022-10-07 20:19:00 Test Item Value Reference Range Interpretation Comments Creatinine Lvl (test code = Creatinine 1.36 0.50-1.40 Lvl) [facility]2022-10-07 20:19:00 Test Item Value Reference Range Interpretation Comments Sodium Lvl (test code = Sodium Lvl) 139 135-145 [facility] [id number] 20:19:00 Test Item Value Reference Range Interpretation Comments Potassium Lvl (test code = Potassium 3.6 3.5-5.1 Lvl) [facility]2022-10-07 20:19:00 Test Item Value Reference Range Interpretation Comments Chloride Lvl (test code = Chloride Lvl) 106 95-109 [place] 722562-10-07 20:19:00 Test Item Value Reference Range Interpretation Comments CO2 (test code = CO2) 25 24-32 [place] 722562-10-07 20:19:00 Test Item Value Reference Range Interpretation Comments Calcium Lvl (test code = Calcium Lvl) 9.9 8.5-10.5 [place] 722562-10-07 20:19:00 Test Item Value Reference Range Interpretation Comments AGAP (test code = AGAP) 11.6 10.0-20.0 [place] 722562-10-07 20:19:00 Test Item Value Reference Range Interpretation Comments eGFR (test code = eGFR) 67 [facility]2022-10-07 20:19:00 Test Item Value Reference Range Interpretation Comments Lactic Acid Lvl (test code = Lactic 1.1 0.5-2.2 Acid Lvl) [place] 199062-10-07 20:19:00 Test Item Value Reference Range Interpretation Comments WBC (test code = WBC) 8.3 3.7-10.4 [place] 199062-10-07 20:19:00 Test Item Value Reference Range Interpretation Comments RBC (test code = RBC) 5.68 4.70-6.10 [place] 199062-10-07 20:19:00 Test Item Value Reference Range Interpretation Comments Hgb (test code = Hgb) 15.6 14.0-18.0 [place] [address]-10-07 20:19:00 Test Item Value Reference Range Interpretation Comments Hct (test code = Hct) 48.0 42.0-54.0 [place] 199062-10-07 20:19:00 Test Item Value Reference Range Interpretation Comments MCV (test code = MCV) 84.5 80.0-94.0 [place] 199062-10-07 20:19:00 Test Item Value Reference Range Interpretation Comments MCH (test code = MCH) 27.4 pg 27.0-31.0 [place] 199062-10-07 20:19:00 Test Item Value Reference Range Interpretation Comments MCHC (test code = MCHC) 32.4 32.0-36.0 [facility] TexasHosygysFETQQFZPTR0024-77-00 20:19:00 Test Item Value Reference Range Interpretation Comments RDW (test code = RDW) 14.8 11.5-14.5 [facility] TexasYjucyjkBNWERWOLVJ3359-86-14 20:19:00 Test Item Value Reference Range Interpretation Comments Platelet (test code = Platelet) 207 133-450 [facility] TexasPxblvwgOFJUIEBMBO8262-94-05 20:19:00 Test Item Value Reference Range Interpretation Comments MPV (test code = MPV) 9.5 7.4-10.4 [facility] TexasTrpmkvpLUYCUBBXCK8614-78-60 20:19:00 Test Item Value Reference Range Interpretation Comments PT (test code = PT) 12.0 s 12.0-14.7 [facility] TexasNfdgmubAPZITURDYU1320-80-72 20:19:00 Test Item Value Reference Range Interpretation Comments INR (test code = INR) 0.89 1 0.85-1.17 [facility] TexasShqgtdkEJHQEIFLOR4735-45-05 20:19:00 Test Item Value Reference Range Interpretation Comments PTT (test code = PTT) 27.2 s 22.9-35.8 [facility] TexasOplvucwNZHDFAVFXP4026-71-70 20:19:00 Test Item Value Reference Range Interpretation Comments Segs (test code = Segs) 51.5 45.0-75.0 [facility] TexasDfuoepjELVANNZDSC2368-90-44 20:19:00 Test Item Value Reference Range Interpretation Comments Lymphocytes (test code = Lymphocytes) 38.1 20.0-40.0 [place] 199062-10-07 20:19:00 Test Item Value Reference Range Interpretation Comments Monocytes (test code = Monocytes) 6.0 2.0-12.0 [place] [address]-10-07 20:19:00 Test Item Value Reference Range Interpretation Comments Eosinophils (test code = 3.9 See_Comment [A utomated message] The Eosinophils) system which ge nerated this result tra nsmitted reference range : <=4.0. The reference r caleb was not used to int erpret this result as normal/abnormal . [facility] TexasPwrmyiyUVNBNDFOKJ8068-77-03 20:19:00 Test Item Value Reference Range Interpretation Comments Basophils (test code = 0.5 See_Comment [Aut omated message] The Basophils) system which ge nerated this result tra nsmitted reference range : <=1.0. The reference r caleb was not used to int erpret this result as normal/abnormal . [facility] TexasFiarfojNLBBOLTJHI2860-45-55 20:19:00 Test Item Value Reference Range Interpretation Comments Neutrophils # (test code = Neutrophils 4.3 1.5-8.1 #) [facility] TexasFnwjjtgOWAZZXMEZB5840-38-84 20:19:00 Test Item Value Reference Range Interpretation Comments Lymphocytes # (test code = Lymphocytes 3.2 1.0-5.5 #) [facility] TexasFkekjbhVTQOLTXWKV9945-23-86 20:19:00 Test Item Value Reference Range Interpretation Comments Monocytes # (test code 0.5 See_Comment [Aut omated message] The = Monocytes #) system which generated this result tra nsmitted reference range : <=0.8. The reference r caleb was not used to int erpret this result as normal/abnormal . [facility] TexasAispcojTXOLBKPOJT8488-17-14 20:19:00 Test Item Value Reference Range Interpretation Comments Eosinophils # (test code 0.3 See_Comment [A utomated message] The = Eosinophils #) system whic h generated this result tra nsmitted reference range : <=0.5. The reference r caleb was not used to int erpret this result as normal/abnormal . [facility] [id number] 05:26:00 Test Item Value Reference Range Interpretation Comments ABO/Rh (test code = ABO/Rh) O POS [facility] [id number] 05:26:00 Test Item Value Reference Range Interpretation Comments Antibody Scrn (test Negative (05/17/22 code = Antibody Scrn) 12:26 AM) [facility] [id number] 05:26:00 Test Item Value Reference Range Interpretation Comments Glucose Lvl (test code = Glucose Lvl) 94 70-99 [facility] [id number] 05:26:00 Test Item Value Reference Range Interpretation Comments BUN (test code = BUN) 17 7-22 [facility] ZSQZZ4527-75-06 05:26:00 Test Item Value Reference Range Interpretation Comments Creatinine Lvl (test code = Creatinine 1.32 0.50-1.40 Lvl) [facility]2022-10-06 05:26:00 Test Item Value Reference Range Interpretation Comments Sodium Lvl (test code = Sodium Lvl) 140 135-145 [place] 722562-10-06 05:26:00 Test Item Value Reference Range Interpretation Comments Potassium Lvl (test code = Potassium 3.9 3.5-5.1 Lvl) [place] 722562-10-06 05:26:00 Test Item Value Reference Range Interpretation Comments Chloride Lvl (test code = Chloride Lvl) 108 95-109 [place] 722562-10-06 05:26:00 Test Item Value Reference Range Interpretation Comments CO2 (test code = CO2) 28 24-32 [place] 722562-10-06 05:26:00 Test Item Value Reference Range Interpretation Comments Calcium Lvl (test code = Calcium Lvl) 9.3 8.5-10.5 [place] 722562-10-06 05:26:00 Test Item Value Reference Range Interpretation Comments AGAP (test code = AGAP) 7.9 10.0-20.0 [place] 722562-10-06 05:26:00 Test Item Value Reference Range Interpretation Comments eGFR (test code = eGFR) 69 [place] 199062-10-06 05:26:00 Test Item Value Reference Range Interpretation Comments Segs (test code = Segs) 46.4 45.0-75.0 [place] 199062-10-06 05:26:00 Test Item Value Reference Range Interpretation Comments Lymphocytes (test code = Lymphocytes) 43.4 20.0-40.0 [place] [address]-10-06 05:26:00 Test Item Value Reference Range Interpretation Comments Monocytes (test code = Monocytes) 7.2 2.0-12.0 [place] [address]-10-06 05:26:00 Test Item Value Reference Range Interpretation Comments Eosinophils (test code = 2.1 See_Comment [A utomated message] The Eosinophils) system which ge nerated this result tra nsmitted reference range : <=4.0. The reference r caleb was not used to int erpret this result as normal/abnormal . [place] 199062-10-06 05:26:00 Test Item Value Reference Range Interpretation Comments Basophils (test code = 0.9 See_Comment [Aut omated message] The Basophils) system which ge nerated this result tra nsmitted reference range : <=1.0. The reference r caleb was not used to int erpret this result as normal/abnormal . [place] 199062-10-06 05:26:00 Test Item Value Reference Range Interpretation Comments Neutrophils # (test code = Neutrophils 3.9 1.5-8.1 #) [facility] TexasQxbdpavWLIRWKWIZR2963-81-18 05:26:00 Test Item Value Reference Range Interpretation Comments Lymphocytes # (test code = Lymphocytes 3.7 1.0-5.5 #) [facility] TexasEwxbfxkHBSCSHVUTI5923-01-30 05:26:00 Test Item Value Reference Range Interpretation Comments Monocytes # (test code 0.6 See_Comment [Aut omated message] The = Monocytes #) system which generated this result tra nsmitted reference range : <=0.8. The reference r caleb was not used to int erpret this result as normal/abnormal . [facility] TexasKtrftovRXTZJMZTHI0767-97-53 05:26:00 Test Item Value Reference Range Interpretation Comments Eosinophils # (test code 0.2 See_Comment [A utomated message] The = Eosinophils #) system whic h generated this result tra nsmitted reference range : <=0.5. The reference r caleb was not used to int erpret this result as normal/abnormal . [facility] TexasFjtjpafHZSOFQPCYB2068-79-23 05:26:00 Test Item Value Reference Range Interpretation Comments Basophils # (test code 0.1 See_Comment [Aut omated message] The = Basophils #) system which generated this result tra nsmitted reference range : <=0.2. The reference r caleb was not used to int erpret this result as normal/abnormal . [facility] TexasYlyyuzxIJUICDWJYR5898-21-49 05:26:00 Test Item Value Reference Range Interpretation Comments WBC (test code = WBC) 8.4 3.7-10.4 [place] 199062-10-06 05:26:00 Test Item Value Reference Range Interpretation Comments RBC (test code = RBC) 4.95 4.70-6.10 [place] 199062-10-06 05:26:00 Test Item Value Reference Range Interpretation Comments Hgb (test code = Hgb) 13.7 14.0-18.0 [facility] TexasRtrgvjdKCALKFHRCG5550-95-96 05:26:00 Test Item Value Reference Range Interpretation Comments Hct (test code = Hct) 41.5 42.0-54.0 [facility] TexasVseygsaTSMICBPJJS1101-43-67 05:26:00 Test Item Value Reference Range Interpretation Comments MCV (test code = MCV) 83.7 80.0-94.0 [place] 199062-10-06 05:26:00 Test Item Value Reference Range Interpretation Comments MCH (test code = MCH) 27.6 pg 27.0-31.0 [facility] TexasXvfkifvMHUUNDGDWJ5430-01-36 05:26:00 Test Item Value Reference Range Interpretation Comments MCHC (test code = MCHC) 33.0 32.0-36.0 [facility] TexasIlpxtnrKHSPGNGZWM5331-14-90 05:26:00 Test Item Value Reference Range Interpretation Comments RDW (test code = RDW) 14.6 11.5-14.5 [place] 199062-10-06 05:26:00 Test Item Value Reference Range Interpretation Comments Platelet (test code = Platelet) 187 133-450 [facility] TexasDdipccrUADCRTMZPM4088-95-03 05:26:00 Test Item Value Reference Range Interpretation Comments MPV (test code = MPV) 9.7 7.4-10.4 [facility] TexasCgrkfgmREEYTCPHLR7105-17-40 05:26:00 Test Item Value Reference Range Interpretation Comments PTT (test code = PTT) 25.7 s 22.9-35.8 [place] 199062-10-06 05:26:00 Test Item Value Reference Range Interpretation Comments PT (test code = PT) 11.9 s 12.0-14.7 [place] [address]-10-06 05:26:00 Test Item Value Reference Range Interpretation Comments INR (test code = INR) 0.88 1 0.85-1.17 [place] 199062-10-06 05:26:00 Test Item Value Reference Range Interpretation Comments TEG Interp (test Thromboelastograph results code = TEG show shortened value of R. Interp) This finding is suggestive of enzymatic hypercoagulation. CPT:46160 [facility] TexasTeysgxqWVIOAPSOZH4596-21-64 05:26:00 Test Item Value Reference Range Interpretation Comments R-time (test code = R-time) 4.5 min 5.0-10.0 [place] 199062-10-06 05:26:00 Test Item Value Reference Range Interpretation Comments K-time (test code = K-time) 1.2 min 1.0-3.0 [facility] TexasCwgxynfTRRCXMQNVA7330-73-40 05:26:00 Test Item Value Reference Range Interpretation Comments Angle (test code = Angle) 71.2 degrees 53.0-72.0 [facility] TexasIrepiszTXRVCWMRSW8794-18-06 05:26:00 Test Item Value Reference Range Interpretation Comments Max Amp (test code = Max Amp) 61.8 mm 50.0-70.0 [facility] TexasXlmmbguVDJBIXXQWM4958-85-18 05:26:00 Test Item Value Reference Range Interpretation Comments G-value (test code = G-value) 8.1 4.5-11.0 [facility] TexasWqvnapcQMHWEGVYDY2591-09-88 05:26:00 Test Item Value Reference Range Interpretation Comments Ly30 (test code = 0.3 See_Comment [Automate d message] The Ly30) system which ge nerated this result transmit leydi reference range : <=7.5. The reference range was not used to interpr et this result as krishna l/abnormal. [facility] TexasLbspkkfKAMXCRPPCD1683-43-09 05:26:00 Test Item Value Reference Range Interpretation Comments Coag Index (test code 1.8 1 See_Comment [Auto mated message] The = Coag Index) system which g enerated this result transmit leydi reference range : <=3.0. The reference range was not used to interpr et this result as krishna l/abnormal. [facility] TexasEokpydvYGIXXUOCTB2715-88-23 05:26:00 Test Item Value Reference Range Interpretation Comments TEG Data (test code = See Note (05/17/22 12:26 TEG Data) AM) [facility]BUK4498[facility]-53 03:56:00 Test Item Value Reference Range Interpretation Comments Coronavirus (COVID-19) Not Detected (05/16/22 LIZBETH (test code = 10:56 PM) Coronavirus (COVID-19) LIZBETH) [facility] TexasVyipiwkCHGMITDOHE1020-88-09 23:51:55 Test Item Value Reference Range Interpretation Comments WBC X 10x3 (test code = WBC X 10x3) 9.1 3.7-10.4 [facility] TexasHiruxcdWFKUZTVIAK6454-72-69 23:51:55 Test Item Value Reference Range Interpretation Comments RBC X 10x6 (test code = RBC X 10x6) 4.96 4.70-6.10 [place] 199062-10-05 23:51:55 Test Item Value Reference Range Interpretation Comments Hgb (test code = Hgb) 13.7 14.0-18.0 [place] [address]-10-05 23:51:55 Test Item Value Reference Range Interpretation Comments Hct (test code = Hct) 42.3 42.0-54.0 [address]10-05 23:51:55 Test Item Value Reference Range Interpretation Comments MCV (test code = MCV) 85.3 80.0-94.0 [place] 199062-10-05 23:51:55 Test Item Value Reference Range Interpretation Comments MCH (test code = MCH) 27.6 pg 27.0-31.0 [place] [address]-10-05 23:51:55 Test Item Value Reference Range Interpretation Comments MCHC (test code = MCHC) 32.4 32.0-36.0 [facility] TexasJjibxasLFQVLWLXUT9211-94-89 23:51:55 Test Item Value Reference Range Interpretation Comments RDW (test code = RDW) 14.7 11.5-14.5 [facility] TexasXhmaqixXLQPVXGRUB8617-48-82 23:51:55 Test Item Value Reference Range Interpretation Comments Platelet (test code = Platelet) 183 133-450 [facility] TexasTviemhbGIULYHYYHX6010-44-13 23:51:55 Test Item Value Reference Range Interpretation Comments MPV (test code = MPV) 9.2 7.4-10.4 [place] [address]-10-05 23:51:55 Test Item Value Reference Range Interpretation Comments Segs (test code = Segs) 56.1 45.0-75.0 [facility] TexasCmqmweyWOMQPVMWJB6386-73-12 23:51:55 Test Item Value Reference Range Interpretation Comments Lymphocytes (test code = Lymphocytes) 35.0 20.0-40.0 [place] 199062-10-05 23:51:55 Test Item Value Reference Range Interpretation Comments Monocytes (test code = Monocytes) 6.5 2.0-12.0 [facility] TexasCtkrwcwENQFJHBYLG3741-21-85 23:51:55 Test Item Value Reference Range Interpretation Comments Eosinophils (test code = 1.8 See_Comment [A utomated message] The Eosinophils) system which ge nerated this result tra nsmitted reference range : <=4.0. The reference r caleb was not used to int erpret this result as normal/abnormal . [facility] TexasKlagomjZYTGGUXHND2277-09-45 23:51:55 Test Item Value Reference Range Interpretation Comments Basophils (test code = 0.6 See_Comment [Aut omated message] The Basophils) system which ge nerated this result tra nsmitted reference range : <=1.0. The reference r caleb was not used to int erpret this result as normal/abnormal . [facility] TexasKzxdrmmTKRZMPWJCY6421-77-60 23:51:55 Test Item Value Reference Range Interpretation Comments Neutrophils # (test code = Neutrophils 5.1 1.5-8.1 #) [facility] TexasDkybfsrEKWWYRKEQW5902-74-32 23:51:55 Test Item Value Reference Range Interpretation Comments Lymphocytes # (test code = Lymphocytes 3.2 1.0-5.5 #) [facility] TexasEzjosvqKGCQUXQVCR7202-80-06 23:51:55 Test Item Value Reference Range Interpretation Comments Monocytes # (test code 0.6 See_Comment [Aut omated message] The = Monocytes #) system which generated this result tra nsmitted reference range : <=0.8. The reference r caleb was not used to int erpret this result as normal/abnormal . [facility] TexasKmyewrdKTDWZHQVFF2501-31-35 23:51:55 Test Item Value Reference Range Interpretation Comments Eosinophils # (test code 0.2 See_Comment [A utomated message] The = Eosinophils #) system whic h generated this result tra nsmitted reference range : <=0.5. The reference r caleb was not used to int erpret this result as normal/abnormal . [facility] [id number] 17:30:00 Test Item Value Reference Range Interpretation Comments Source Strep (test code Cerebral Spinal Fluid = Source Strep) [facility] [id number] 17:30:00 Test Item Value Reference Range Interpretation Comments Strep pneumoniae Ag Negative (05/12/22 (test code = Strep 12:30 PM) pneumoniae Ag) [facility] [id number] 17:30:00 Test Item Value Reference Range Interpretation Comments Tube Num CSF (test code = Tube Num CSF) 1 1 [facility] [id number] 17:30:00 Test Item Value Reference Range Interpretation Comments Color CSF (test code Colorless (05/12/22 12:30 = Color CSF) PM) [facility]2022-10-01 17:30:00 Test Item Value Reference Range Interpretation Comments Clarity CSF (test code = Clear (05/12/22 12:30 Clarity CSF) PM) [facility]2022-10-01 17:30:00 Test Item Value Reference Range Interpretation Comments Supernat CSF (test Colorless (05/12/22 code = Supernat CSF) 12:30 PM) [facility]2022-10-01 17:30:00 Test Item Value Reference Range Interpretation Comments Nucleated Cells CSF 4 See_Comment [Automa leydi message] The (test code = Nucleated syste m which generated Cells CSF) this result tra nsmitted reference range : <=53. The reference r caleb was not used to int erpret this result as normal/abnormal . [facility] [id number] 17:30:00 Test Item Value Reference Range Interpretation Comments RBC CSF (test code = 1 See_Comment [Autom ated message] The RBC CSF) system which ge nerated this result transmit leydi reference range : <=03. The reference range was not used to interpr et this result as krishna l/abnormal. [facility] [id number] 17:30:00 Test Item Value Reference Range Interpretation Comments Comment CSF (test Differential not code = Comment CSF) performed on WBC count of less than 5. [facility] [id number] 17:30:00 Test Item Value Reference Range Interpretation Comments Glucose CSF (test code = Glucose CSF) 71 45-80 [facility]2022-10-01 17:30:00 Test Item Value Reference Range Interpretation Comments Protein CSF (test code = Protein CSF) 195 15-45 [facility] HospitalGram Stain [id number] 17:30:00 Test Item Value Reference Range Interpretation Comments Gram Stain Report Gram Stain Performed By: (test code = Gram [facility] St[facility] ReportLouisiana [facility] HospitalCulture: CSF w/Gram [id number] 17:30:00 Test Item Value Reference Range Interpretation Comments Culture: CSF w/Gram 48 Hour Report - No Stain (test code = Growth, Holding Culture: CSF w/Gram Stain) [facility]2022-10-01 10:41:00 Test Item Value Reference Range Interpretation Comments Glucose Lvl (test code = Glucose Lvl) 149 70-99 [facility]2022-10-01 10:41:00 Test Item Value Reference Range Interpretation Comments BUN (test code = BUN) 12 7-22 [facility]2022-10-01 10:41:00 Test Item Value Reference Range Interpretation Comments Creatinine Lvl (test code = Creatinine 1.37 0.50-1.40 Lvl) [facility]2022-10-01 10:41:00 Test Item Value Reference Range Interpretation Comments Sodium Lvl (test code = Sodium Lvl) 142 135-145 [facility]2022-10-01 10:41:00 Test Item Value Reference Range Interpretation Comments Potassium Lvl (test code = Potassium 3.9 3.5-5.1 Lvl) [facility]2022-10-01 10:41:00 Test Item Value Reference Range Interpretation Comments Chloride Lvl (test code = Chloride Lvl) 110 95-109 [facility]2022-10-01 10:41:00 Test Item Value Reference Range Interpretation Comments CO2 (test code = CO2) 26 24-32 [facility]2022-10-01 10:41:00 Test Item Value Reference Range Interpretation Comments Calcium Lvl (test code = Calcium Lvl) 9.3 8.5-10.5 [facility]2022-10-01 10:41:00 Test Item Value Reference Range Interpretation Comments AGAP (test code = AGAP) 9.9 10.0-20.0 [facility]2022-10-01 10:41:00 Test Item Value Reference Range Interpretation Comments eGFR (test code = eGFR) 66 [facility]2022-10-01 10:41:00 Test Item Value Reference Range Interpretation Comments Total Protein (test code = Total 7.2 6.4-8.4 Protein) [facility]2022-10-01 10:41:00 Test Item Value Reference Range Interpretation Comments Albumin Lvl (test code = Albumin Lvl) 3.5 3.5-5.0 [place] [address]-10-01 10:41:00 Test Item Value Reference Range Interpretation Comments Globulin (test code = Globulin) 3.7 2.7-4.2 [place] [address]-10-01 10:41:00 Test Item Value Reference Range Interpretation Comments A/G Ratio (test code = A/G Ratio) 0.9 1 0.7-1.6 [place] [address]-10-01 10:41:00 Test Item Value Reference Range Interpretation Comments ALANINE AMINOTRANSFERASE 32 See_Comment [A utomated message] (test code = ALANINE The sys tem which AMINOTRANSFERASE) generated this result transmitted ref erence range: <=65. Th e reference range was not used to int erpret this result as normal/abnormal . [place] [address]-10-01 10:41:00 Test Item Value Reference Range Interpretation Comments AST (test code = AST) 14 See_Comment [Auto mated message] The system which ge nerated this result transmit leydi reference range : <=37. The reference range was not used to interpr et this result as krishna l/abnormal. [place] 722562-10-01 10:41:00 Test Item Value Reference Range Interpretation Comments Alk Phos (test code = Alk Phos) 110 39-136 [place] [address]-10-01 10:41:00 Test Item Value Reference Range Interpretation Comments Bili Total (test code = Bili Total) 0.3 0.2-1.3 [place] [address]-10-01 10:41:00 Test Item Value Reference Range Interpretation Comments Bili Direct (test code no gt See_Comment [Aut omated message] The = Bili Direct) system which generated this result tra nsmitted reference range : <=0.3. The reference r caleb was not used to int erpret this result as krishna l/abnormal. [place] [address]-10-01 10:41:00 Test Item Value Reference Range Interpretation Comments Bili Indirect Unable to See_Comment [Automated (test code = Bili Calculate message] T he system Indirect) which generated this result transmitted reference range : <=1.0. The reference range was not used to interpret this result as normal/abnormal . [facility] TexasOfhzjwnEFVNXQPRCR5861-61-76 10:41:00 Test Item Value Reference Range Interpretation Comments WBC X 10x3 (test code = WBC X 10x3) 13.2 3.7-10.4 [place] 199062-10-01 10:41:00 Test Item Value Reference Range Interpretation Comments RBC X 10x6 (test code = RBC X 10x6) 4.65 4.70-6.10 [place] 199062-10-01 10:41:00 Test Item Value Reference Range Interpretation Comments Hgb (test code = Hgb) 12.7 14.0-18.0 [place] [address]-10-01 10:41:00 Test Item Value Reference Range Interpretation Comments Hct (test code = Hct) 39.8 42.0-54.0 [place] [address]-10-01 10:41:00 Test Item Value Reference Range Interpretation Comments MCV (test code = MCV) 85.5 80.0-94.0 [place] [address]-10-01 10:41:00 Test Item Value Reference Range Interpretation Comments MCH (test code = MCH) 27.4 pg 27.0-31.0 [place] [address]-10-01 10:41:00 Test Item Value Reference Range Interpretation Comments MCHC (test code = MCHC) 32.0 32.0-36.0 [place] [address]-10-01 10:41:00 Test Item Value Reference Range Interpretation Comments RDW (test code = RDW) 14.6 11.5-14.5 [place] 199062-10-01 10:41:00 Test Item Value Reference Range Interpretation Comments Platelet (test code = Platelet) 217 133-450 [place] 199062-10-01 10:41:00 Test Item Value Reference Range Interpretation Comments MPV (test code = MPV) 9.4 7.4-10.4 [place] [address]-10-01 10:41:00 Test Item Value Reference Range Interpretation Comments PT (test code = PT) 12.4 s 12.0-14.7 [place] 199062-10-01 10:41:00 Test Item Value Reference Range Interpretation Comments INR (test code = INR) 0.93 1 0.85-1.17 [facility] TexasAqtsiwaCCRWGUDVYW0307-85-32 10:41:00 Test Item Value Reference Range Interpretation Comments PTT (test code = PTT) 27.5 s 22.9-35.8 [facility] TexasAsbzjbeNAAZDEHSYQ2613-36-68 10:41:00 Test Item Value Reference Range Interpretation Comments Segs (test code = Segs) 80.2 45.0-75.0 [facility] TexasTqoxnbhQZNANEWTBA6026-05-18 10:41:00 Test Item Value Reference Range Interpretation Comments Lymphocytes (test code = Lymphocytes) 14.3 20.0-40.0 [facility] TexasHmewdteNZULEOPGSS0978-81-11 10:41:00 Test Item Value Reference Range Interpretation Comments Monocytes (test code = Monocytes) 4.8 2.0-12.0 [facility] TexasBpqxbdvNBOAWGZBZZ8678-94-75 10:41:00 Test Item Value Reference Range Interpretation Comments Eosinophils (test code = 0.4 See_Comment [A utomated message] The Eosinophils) system which ge nerated this result tra nsmitted reference range : <=4.0. The reference r caleb was not used to int erpret this result as normal/abnormal . [facility] TexasVcpzkvdAJRANSITHG9247-93-17 10:41:00 Test Item Value Reference Range Interpretation Comments Basophils (test code = 0.3 See_Comment [Aut omated message] The Basophils) system which ge nerated this result tra nsmitted reference range : <=1.0. The reference r caleb was not used to int erpret this result as normal/abnormal . [facility] TexasApucmqySRXZNGJMBW5386-38-65 10:41:00 Test Item Value Reference Range Interpretation Comments Neutrophils # (test code = Neutrophils 10.6 1.5-8.1 #) [facility] TexasGnkthwgPMHUEDMEWE9427-19-74 10:41:00 Test Item Value Reference Range Interpretation Comments Lymphocytes # (test code = Lymphocytes 1.9 1.0-5.5 #) [facility] TexasQuofkaoYWSOBMBNGW6468-89-09 10:41:00 Test Item Value Reference Range Interpretation Comments Monocytes # (test code 0.6 See_Comment [Aut omated message] The = Monocytes #) system which generated this result tra nsmitted reference range : <=0.8. The reference r caleb was not used to int erpret this result as normal/abnormal . [facility] TexasYzznztyLPFWHFIQIR3020-71-10 10:41:00 Test Item Value Reference Range Interpretation Comments Eosinophils # (test code 0.1 See_Comment [A utomated message] The = Eosinophils #) system [facility] [employer] generated this result tra nsmitted reference range : <=0.5. The reference r caleb was not used to int erpret this result as normal/abnormal . [facility] HospitalMtmeqyuQDGUYJPQIK4955-53-07 10:41:00 Test Item Value Reference Range Interpretation Comments Hep C Ab (test code = Hep C Ab) NON-REACTIVE [facility] HospitalSgexhbrYULTMSPGNQ5504-28-72 10:41:00 Test Item Value Reference Range Interpretation Comments Hep Signal to Cut-Off (test code = Hep 0.07 1 Signal to Cut-Off) [place] 484312-10-01 10:41:00 Test Item Value Reference Range Interpretation Comments [facility] HIV 4th GEN (test Negative *NA*(05/12/22 code = [facility] HIV 4th 5:41 AM) GEN) [place] 199062-02-28 21:33:00 Test Item Value Reference Range Interpretation Comments Neutrophils # (test code = Neutrophils 4.4 1.5-8.1 #) [facility] TexasOjoyvonUFXIBVWHMJ4374-34-87 21:33:00 Test Item Value Reference Range Interpretation Comments Lymphocytes # (test code = Lymphocytes 1.1 1.0-5.5 #) [facility] TexasCqbvkhsCJHWYPUDYN1063-07-57 21:33:00 Test Item Value Reference Range Interpretation Comments Monocytes # (test code 0.2 See_Comment [Aut omated message] The = Monocytes #) system which generated this result tra nsmitted reference range : <=0.8. The reference r caleb was not used to int erpret this result as normal/abnormal . [facility] TexasJbamykkROUTOXMZXO9300-98-35 21:33:00 Test Item Value Reference Range Interpretation Comments Eosinophils # (test code 0.2 See_Comment [A utomated message] The = Eosinophils #) system [facility] [employer] generated this result tra nsmitted reference range : <=0.5. The reference r caleb was not used to int erpret this result as normal/abnormal . [facility]2022-02-28 21:33:00 Test Item Value Reference Range Interpretation Comments Glucose Lvl (test code = Glucose Lvl) 114 70-99 [place] 722562-02-28 21:33:00 Test Item Value Reference Range Interpretation Comments BUN (test code = BUN) 14 7-22 [place] [address]-02-28 21:33:00 Test Item Value Reference Range Interpretation Comments Creatinine Lvl (test code = Creatinine 1.36 0.50-1.40 Lvl) [place] 722562-02-28 21:33:00 Test Item Value Reference Range Interpretation Comments Sodium Lvl (test code = Sodium Lvl) 139 135-145 [place] 722562-02-28 21:33:00 Test Item Value Reference Range Interpretation Comments Potassium Lvl (test code = Potassium 4.6 3.5-5.1 Lvl) [place] 722562-02-28 21:33:00 Test Item Value Reference Range Interpretation Comments Chloride Lvl (test code = Chloride Lvl) 104 95-109 [place] 722562-02-28 21:33:00 Test Item Value Reference Range Interpretation Comments CO2 (test code = CO2) 29 24-32 [place] 722562-02-28 21:33:00 Test Item Value Reference Range Interpretation Comments Calcium Lvl (test code = Calcium Lvl) 9.3 8.5-10.5 [place] 722562-02-28 21:33:00 Test Item Value Reference Range Interpretation Comments AGAP (test code = AGAP) 10.6 10.0-20.0 [place] 722562-02-28 21:33:00 Test Item Value Reference Range Interpretation Comments eGFR (test code = eGFR) 64 [place] 199062-02-28 21:33:00 Test Item Value Reference Range Interpretation Comments WBC (test code = WBC) 5.9 3.7-10.4 [place] [address]-02-28 21:33:00 Test Item Value Reference Range Interpretation Comments RBC (test code = RBC) 4.85 4.70-6.10 [place] [address]-02-28 21:33:00 Test Item Value Reference Range Interpretation Comments Hgb (test code = Hgb) 13.7 14.0-18.0 [place] [address]-02-28 21:33:00 Test Item Value Reference Range Interpretation Comments Hct (test code = Hct) 41.5 42.0-54.0 [facility] TexasBiwvadqGCRRHZDMIH1557-80-45 21:33:00 Test Item Value Reference Range Interpretation Comments MCV (test code = MCV) 85.4 80.0-94.0 [facility] TexasJvcnltkLVLIZYNCSV5738-49-01 21:33:00 Test Item Value Reference Range Interpretation Comments MCH (test code = MCH) 28.2 pg 27.0-31.0 [facility] TexasZdvyvwyZWSSLDIVBQ3444-53-98 21:33:00 Test Item Value Reference Range Interpretation Comments MCHC (test code = MCHC) 33.0 32.0-36.0 [facility] TexasXnauoqjBAKKDAVTQX4098-94-13 21:33:00 Test Item Value Reference Range Interpretation Comments RDW (test code = RDW) 14.0 11.5-14.5 [facility] TexasWgsuwqoHLZGOITZND1631-77-65 21:33:00 Test Item Value Reference Range Interpretation Comments Platelet (test code = Platelet) 186 133-450 [facility] TexasXllohovASHDNGBAGU8755-96-38 21:33:00 Test Item Value Reference Range Interpretation Comments MPV (test code = MPV) 9.1 7.4-10.4 [facility] TexasKcwogzbDJQQRWIMXA5053-70-85 21:33:00 Test Item Value Reference Range Interpretation Comments PT (test code = PT) 12.4 s 12.0-14.7 [facility] TexasFxlwowpACDSAEPRMO4245-93-49 21:33:00 Test Item Value Reference Range Interpretation Comments INR (test code = INR) 0.93 1 0.85-1.17 [facility] TexasMndodixGYCKNRDTFQ0582-84-34 21:33:00 Test Item Value Reference Range Interpretation Comments PTT (test code = PTT) 27.8 s 22.9-35.8 [place] 199062-02-28 21:33:00 Test Item Value Reference Range Interpretation Comments Segs (test code = Segs) 73.9 45.0-75.0 [place] 199062-02-28 21:33:00 Test Item Value Reference Range Interpretation Comments Lymphocytes (test code = Lymphocytes) 18.2 20.0-40.0 [facility] TexasWpjoebcKMIPWRLKPG0407-71-71 21:33:00 Test Item Value Reference Range Interpretation Comments Monocytes (test code = Monocytes) 3.4 2.0-12.0 [place] 199062-02-28 21:33:00 Test Item Value Reference Range Interpretation Comments Eosinophils (test code = 4.2 See_Comment [A utomated message] The Eosinophils) system which ge nerated this result tra nsmitted reference range : <=4.0. The reference r caleb was not used to int erpret this result as normal/abnormal . [place] 199062-02-28 21:33:00 Test Item Value Reference Range Interpretation Comments Basophils (test code = 0.3 See_Comment [Aut omated message] The Basophils) system which ge nerated this result tra nsmitted reference range : <=1.0. The reference r caleb was not used to int erpret this result as normal/abnormal . [place] 199062-02-28 21:33:00 Test Item Value Reference Range Interpretation Comments Neutrophils # (test code = Neutrophils 4.4 1.5-8.1 #) [place] 199062-02-28 21:33:00 Test Item Value Reference Range Interpretation Comments Lymphocytes # (test code = Lymphocytes 1.1 1.0-5.5 #) [place] [address]-02-28 21:33:00 Test Item Value Reference Range Interpretation Comments Monocytes # (test code 0.2 See_Comment [Aut omated message] The = Monocytes #) system which generated this result tra nsmitted reference range : <=0.8. The reference r caleb was not used to int erpret this result as normal/abnormal . [place] 199062-02-28 21:33:00 Test Item Value Reference Range Interpretation Comments Eosinophils # (test code 0.2 See_Comment [A utomated message] The = Eosinophils #) system whic h generated this result tra nsmitted reference range : <=0.5. The reference r caleb was not used to int erpret this result as normal/abnormal . [facility]Tou[facility] [id number] 21:33:00 Test Item Value Reference Range Interpretation Comments Glucose Lvl (test code = Glucose Lvl) 114 70-99 [place] 722562-02-28 21:33:00 Test Item Value Reference Range Interpretation Comments BUN (test code = BUN) 14 7-22 [facility] [id number] 21:33:00 Test Item Value Reference Range Interpretation Comments Creatinine Lvl (test code = Creatinine 1.36 0.50-1.40 Lvl) [place] 722562-02-28 21:33:00 Test Item Value Reference Range Interpretation Comments Sodium Lvl (test code = Sodium Lvl) 139 135-145 [place] 722562-02-28 21:33:00 Test Item Value Reference Range Interpretation Comments Potassium Lvl (test code = Potassium 4.6 3.5-5.1 Lvl) [place] 722562-02-28 21:33:00 Test Item Value Reference Range Interpretation Comments Chloride Lvl (test code = Chloride Lvl) 104 95-109 [place] 722562-02-28 21:33:00 Test Item Value Reference Range Interpretation Comments CO2 (test code = CO2) 29 -32 [place] 722562-02-28 21:33:00 Test Item Value Reference Range Interpretation Comments Calcium Lvl (test code = Calcium Lvl) 9.3 8.5-10.5 [place] 722562-02-28 21:33:00 Test Item Value Reference Range Interpretation Comments AGAP (test code = AGAP) 10.6 10.0-20.0 [place] 722562-02-28 21:33:00 Test Item Value Reference Range Interpretation Comments eGFR (test code = eGFR) 64 [place] 199062-02-28 21:33:00 Test Item Value Reference Range Interpretation Comments WBC (test code = WBC) 5.9 3.7-10.4 [place] [address]-02-28 21:33:00 Test Item Value Reference Range Interpretation Comments RBC (test code = RBC) 4.85 4.70-6.10 [place] [address]-02-28 21:33:00 Test Item Value Reference Range Interpretation Comments Hgb (test code = Hgb) 13.7 14.0-18.0 [place] [address]-02-28 21:33:00 Test Item Value Reference Range Interpretation Comments Hct (test code = Hct) 41.5 42.0-54.0 [place] [address]-02-28 21:33:00 Test Item Value Reference Range Interpretation Comments MCV (test code = MCV) 85.4 80.0-94.0 [place] 199062-02-28 21:33:00 Test Item Value Reference Range Interpretation Comments MCH (test code = MCH) 28.2 pg 27.0-31.0 [place] 199062-02-28 21:33:00 Test Item Value Reference Range Interpretation Comments MCHC (test code = MCHC) 33.0 32.0-36.0 [place] 199062-02-28 21:33:00 Test Item Value Reference Range Interpretation Comments RDW (test code = RDW) 14.0 11.5-14.5 [place] 199062-02-28 21:33:00 Test Item Value Reference Range Interpretation Comments Platelet (test code = Platelet) 186 133-450 [place] 199062-02-28 21:33:00 Test Item Value Reference Range Interpretation Comments MPV (test code = MPV) 9.1 7.4-10.4 [place] 199062-02-28 21:33:00 Test Item Value Reference Range Interpretation Comments PT (test code = PT) 12.4 s 12.0-14.7 [place] 199062-02-28 21:33:00 Test Item Value Reference Range Interpretation Comments INR (test code = INR) 0.93 1 0.85-1.17 [place] [address]-02-28 21:33:00 Test Item Value Reference Range Interpretation Comments PTT (test code = PTT) 27.8 s 22.9-35.8 [place] 199062-02-28 21:33:00 Test Item Value Reference Range Interpretation Comments Segs (test code = Segs) 73.9 45.0-75.0 [place] 199062-02-28 21:33:00 Test Item Value Reference Range Interpretation Comments Lymphocytes (test code = Lymphocytes) 18.2 20.0-40.0 [place] [address]-02-28 21:33:00 Test Item Value Reference Range Interpretation Comments Monocytes (test code = Monocytes) 3.4 2.0-12.0 [place] [address]-02-28 21:33:00 Test Item Value Reference Range Interpretation Comments Eosinophils (test code = 4.2 See_Comment [A utomated message] The Eosinophils) system which ge nerated this result tra nsmitted reference range : <=4.0. The reference r caleb was not used to int erpret this result as normal/abnormal . [facility] HospitalEbrudwoMQZFDYQPKM9672-56-72 21:33:00 Test Item Value Reference Range Interpretation Comments Basophils (test code = 0.3 See_Comment [Aut omated message] The Basophils) system which ge nerated this result tra nsmitted reference range : <=1.0. The reference r caleb was not used to int erpret this result as normal/abnormal . [facility] OILCGJ9451-75-04 20:31:00 Test Item Value Reference Range Interpretation Comments Glucose CSF (test code = Glucose CSF) 77 45-80 [facility]2022-02-28 20:31:00 Test Item Value Reference Range Interpretation Comments Protein CSF (test code = Protein CSF) 33 15-45 [facility]2022-02-28 20:31:00 Test Item Value Reference Range Interpretation Comments Tube Num CSF (test xxxxxxx (10/09/21 2:31 code = Tube Num CSF) PM) [facility]2022-02-28 20:31:00 Test Item Value Reference Range Interpretation Comments Color CSF (test code Colorless (10/09/21 2:31 = Color CSF) PM) [facility]2022-02-28 20:31:00 Test Item Value Reference Range Interpretation Comments Clarity CSF (test code = Clear (10/09/21 2:31 Clarity CSF) PM) [facility]2022-02-28 20:31:00 Test Item Value Reference Range Interpretation Comments Supernat CSF (test Colorless (10/09/21 2:31 code = Supernat CSF) PM) [facility]2022-02-28 20:31:00 Test Item Value Reference Range Interpretation Comments Nucleated Cells CSF 9 See_Comment [Automa leydi message] The (test code = Nucleated syste m which generated Cells CSF) this result tra nsmitted reference range : <=53. The reference r caleb was not used to int erpret this result as normal/abnormal . [facility] [id number] 20:31:00 Test Item Value Reference Range Interpretation Comments RBC CSF (test code = 280 See_Comment [Autom ated message] The RBC CSF) system which ge nerated this result transmit leydi reference range : <=03. The reference range was not used to interpr et this result as krishna l/abnormal. [facility]2022-02-28 20:31:00 Test Item Value Reference Range Interpretation Comments Neutrophils CSF (test 64 See_Comment [Auto mated message] The code = Neutrophils CSF) syst em which generated this result tra nsmitted reference range : <=6. The reference r caleb was not used to int erpret this result as normal/abnormal . [facility] [id number] 20:31:00 Test Item Value Reference Range Interpretation Comments Lymph CSF (test code = Lymph CSF) 30 40-80 [facility]2022-02-28 20:31:00 Test Item Value Reference Range Interpretation Comments Monocyte CSF (test code = Monocyte CSF) 6 15-45 [facility] [id number] 20:31:00 Test Item Value Reference Range Interpretation Comments Culture: Anaerobic No Anaerobes Isolated (test code = Culture: After 3 Days Anaerobic) [facility] [id number] 20:31:00 Test Item Value Reference Range Interpretation Comments Gram Stain Report Few Wbc'S; No Organisms (test code = Gram Seen Stain Report) [facility] CSF w/Gram [id number] 20:31:00 Test Item Value Reference Range Interpretation Comments Culture: CSF w/Gram 72 Hour Report - No Stain (test code = Growth, Holding Culture: CSF w/Gram Stain) [facility]2022-02-28 20:31:00 Test Item Value Reference Range Interpretation Comments Glucose CSF (test code = Glucose CSF) 77 45-80 [facility]2022-02-28 20:31:00 Test Item Value Reference Range Interpretation Comments Protein CSF (test code = Protein CSF) 33 15-45 [facility]2022-02-28 20:31:00 Test Item Value Reference Range Interpretation Comments Tube Num CSF (test xxxxxxx (10/09/21 2:31 code = Tube Num CSF) PM) [facility]2022-02-28 20:31:00 Test Item Value Reference Range Interpretation Comments Color CSF (test code Colorless (10/09/21 2:31 = Color CSF) PM) [facility]2022-02-28 20:31:00 Test Item Value Reference Range Interpretation Comments Clarity CSF (test code = Clear (10/09/21 2:31 Clarity CSF) PM) [facility]2022-02-28 20:31:00 Test Item Value Reference Range Interpretation Comments Supernat CSF (test Colorless (10/09/21 2:31 code = Supernat CSF) PM) [facility]2022-02-28 20:31:00 Test Item Value Reference Range Interpretation Comments Nucleated Cells CSF 9 See_Comment [Automa leydi message] The (test code = Nucleated syste m which generated Cells CSF) this result tra nsmitted reference range : <=53. The reference r caleb was not used to int erpret this result as normal/abnormal . [facility]2022-02-28 20:31:00 Test Item Value Reference Range Interpretation Comments RBC CSF (test code = 280 See_Comment [Autom ated message] The RBC CSF) system which ge nerated this result transmit leydi reference range : <=03. The reference range was not used to interpr et this result as krishna l/abnormal. [facility]2022-02-28 20:31:00 Test Item Value Reference Range Interpretation Comments Neutrophils CSF (test 64 See_Comment [Auto mated message] The code = Neutrophils CSF) syst em which generated this result tra nsmitted reference range : <=6. The reference r caleb was not used to int erpret this result as normal/abnormal . [facility]2022-02-28 20:31:00 Test Item Value Reference Range Interpretation Comments Lymph CSF (test code = Lymph CSF) 30 40-80 [facility] [id number] 20:31:00 Test Item Value Reference Range Interpretation Comments Monocyte CSF (test code = Monocyte CSF) 6 15-45 [facility]: [id number] 20:31:00 Test Item Value Reference Range Interpretation Comments Culture: Anaerobic No Anaerobes Isolated (test code = Culture: After 3 Days Anaerobic) [facility] [id number] 20:31:00 Test Item Value Reference Range Interpretation Comments Gram Stain Report Few Wbc'S; No Organisms (test code = Gram Seen Stain Report) [facility] CSF w/Gram [id number] 20:31:00 Test Item Value Reference Range Interpretation Comments Culture: CSF w/Gram 72 Hour Report - No Stain (test code = Growth, Holding Culture: CSF w/Gram Stain) [place] 722562-02-28 08:57:00 Test Item Value Reference Range Interpretation Comments Glucose Lvl (test code = Glucose Lvl) 109 70-99 [place] [address]-02-28 08:57:00 Test Item Value Reference Range Interpretation Comments BUN (test code = BUN) 17 7-22 [place] 722562-02-28 08:57:00 Test Item Value Reference Range Interpretation Comments Creatinine Lvl (test code = Creatinine 1.28 0.50-1.40 Lvl) [address]02-28 08:57:00 Test Item Value Reference Range Interpretation Comments Sodium Lvl (test code = Sodium Lvl) 140 135-145 [place] 722562-02-28 08:57:00 Test Item Value Reference Range Interpretation Comments Potassium Lvl (test code = Potassium 3.9 3.5-5.1 Lvl) [place] 722562-02-28 08:57:00 Test Item Value Reference Range Interpretation Comments Chloride Lvl (test code = Chloride Lvl) 108 95-109 [place] 722562-02-28 08:57:00 Test Item Value Reference Range Interpretation Comments CO2 (test code = CO2) 27 24-32 [place] 722562-02-28 08:57:00 Test Item Value Reference Range Interpretation Comments Calcium Lvl (test code = Calcium Lvl) 9.5 8.5-10.5 [place] 722562-02-28 08:57:00 Test Item Value Reference Range Interpretation Comments AGAP (test code = AGAP) 8.9 10.0-20.0 [place] 722562-02-28 08:57:00 Test Item Value Reference Range Interpretation Comments eGFR (test code = eGFR) 69 [place] [address]-02-28 08:57:00 Test Item Value Reference Range Interpretation Comments WBC (test code = WBC) 8.5 3.7-10.4 [place] [address]-02-28 08:57:00 Test Item Value Reference Range Interpretation Comments RBC (test code = RBC) 4.69 4.70-6.10 [place] [address]-02-28 08:57:00 Test Item Value Reference Range Interpretation Comments Hgb (test code = Hgb) 13.3 14.0-18.0 [place] 199062-02-28 08:57:00 Test Item Value Reference Range Interpretation Comments Hct (test code = Hct) 40.4 42.0-54.0 [place] 199062-02-28 08:57:00 Test Item Value Reference Range Interpretation Comments MCV (test code = MCV) 86.1 80.0-94.0 [place] 199062-02-28 08:57:00 Test Item Value Reference Range Interpretation Comments MCH (test code = MCH) 28.3 pg 27.0-31.0 [facility]WguuuhpZYHRTJXZOA6310-26-40 08:57:00 Test Item Value Reference Range Interpretation Comments MCHC (test code = MCHC) 32.9 32.0-36.0 [facility] TexasXaqphdmXGHSKIRJPM4781-30-78 08:57:00 Test Item Value Reference Range Interpretation Comments RDW (test code = RDW) 14.1 11.5-14.5 [place] 199062-02-28 08:57:00 Test Item Value Reference Range Interpretation Comments Platelet (test code = Platelet) 192 133-450 [facility] TexasFmohyyxAUNJXHXQET3732-66-04 08:57:00 Test Item Value Reference Range Interpretation Comments MPV (test code = MPV) 9.2 7.4-10.4 [place] 199062-02-28 08:57:00 Test Item Value Reference Range Interpretation Comments R-time (test code = R-time) 6.0 min 5.0-10.0 [place] 199062-02-28 08:57:00 Test Item Value Reference Range Interpretation Comments K-time (test code = K-time) 1.4 min 1.0-3.0 [place] 199062-02-28 08:57:00 Test Item Value Reference Range Interpretation Comments Angle (test code = Angle) 69.7 degrees 53.0-72.0 [place] 199062-02-28 08:57:00 Test Item Value Reference Range Interpretation Comments Max Amp (test code = Max Amp) 66.3 mm 50.0-70.0 [place] 199062-02-28 08:57:00 Test Item Value Reference Range Interpretation Comments G-value (test code = G-value) 9.8 4.5-11.0 [place] [address]-02-28 08:57:00 Test Item Value Reference Range Interpretation Comments Ly30 (test code = 0.6 See_Comment [Automate d message] The Ly30) system which ge nerated this result transmit leydi reference range : <=7.5. The reference range was not used to interpr et this result as krishna l/abnormal. [place] [address]-02-28 08:57:00 Test Item Value Reference Range Interpretation Comments Coag Index (test code 1.2 1 See_Comment [Auto mated message] The = Coag Index) system which g enerated this result transmit leydi reference range : <=3.0. The reference range was not used to interpr et this result as krishna l/abnormal. [address]02-28 08:57:00 Test Item Value Reference Range Interpretation Comments TEG Data (test code = See Note (10/09/21 2:57 TEG Data) AM) [place] [address]-02-28 08:57:00 Test Item Value Reference Range Interpretation Comments PT (test code = PT) 12.1 s 12.0-14.7 [place] [address]-02-28 08:57:00 Test Item Value Reference Range Interpretation Comments INR (test code = INR) 0.90 1 0.85-1.17 [place] [address]-02-28 08:57:00 Test Item Value Reference Range Interpretation Comments PTT (test code = PTT) 27.6 s 22.9-35.8 [place] [address]-02-28 08:57:00 Test Item Value Reference Range Interpretation Comments Segs (test code = Segs) 52.0 45.0-75.0 [place] [address]-02-28 08:57:00 Test Item Value Reference Range Interpretation Comments Lymphocytes (test code = Lymphocytes) 33.8 20.0-40.0 [place] [address]-02-28 08:57:00 Test Item Value Reference Range Interpretation Comments Monocytes (test code = Monocytes) 8.0 2.0-12.0 [place] [address]-02-28 08:57:00 Test Item Value Reference Range Interpretation Comments Eosinophils (test code = 5.8 See_Comment [A utomated message] The Eosinophils) system which ge nerated this result tra nsmitted reference range : <=4.0. The reference r caleb was not used to int erpret this result as normal/abnormal . [place] 199062-02-28 08:57:00 Test Item Value Reference Range Interpretation Comments Basophils (test code = 0.4 See_Comment [Aut omated message] The Basophils) system which ge nerated this result tra nsmitted reference range : <=1.0. The reference r caleb was not used to int erpret this result as normal/abnormal . [place] 199062-02-28 08:57:00 Test Item Value Reference Range Interpretation Comments Neutrophils # (test code = Neutrophils 4.4 1.5-8.1 #) [place] 199062-02-28 08:57:00 Test Item Value Reference Range Interpretation Comments Lymphocytes # (test code = Lymphocytes 2.9 1.0-5.5 #) [place] 199062-02-28 08:57:00 Test Item Value Reference Range Interpretation Comments Monocytes # (test code 0.7 See_Comment [Aut omated message] The = Monocytes #) system which generated this result tra nsmitted reference range : <=0.8. The reference r caleb was not used to int erpret this result as normal/abnormal . [facility] TexasXrnmpjpBGPQCLNQWM9470-98-87 08:57:00 Test Item Value Reference Range Interpretation Comments Eosinophils # (test code 0.5 See_Comment [A utomated message] The = Eosinophils #) system whic h generated this result tra nsmitted reference range : <=0.5. The reference r caleb was not used to int erpret this result as normal/abnormal . [place] 199062-02-28 08:57:00 Test Item Value Reference Range Interpretation Comments TEG Interp (test Thrombelastograph results code = TEG are within reference ranges. Interp) Note that TEG does not show effect of NSAIDs or P2Y12 inhibitors. CPT:45235 [place] 722562-02-28 08:57:00 Test Item Value Reference Range Interpretation Comments Glucose Lvl (test code = Glucose Lvl) 109 70-99 [place] 722562-02-28 08:57:00 Test Item Value Reference Range Interpretation Comments BUN (test code = BUN) 17 7-22 [place] 722562-02-28 08:57:00 Test Item Value Reference Range Interpretation Comments Creatinine Lvl (test code = Creatinine 1.28 0.50-1.40 Lvl) [place] 722562-02-28 08:57:00 Test Item Value Reference Range Interpretation Comments Sodium Lvl (test code = Sodium Lvl) 140 135-145 [place] 722562-02-28 08:57:00 Test Item Value Reference Range Interpretation Comments Potassium Lvl (test code = Potassium 3.9 3.5-5.1 Lvl) [place] 722562-02-28 08:57:00 Test Item Value Reference Range Interpretation Comments Chloride Lvl (test code = Chloride Lvl) 108 95-109 [place] 722562-02-28 08:57:00 Test Item Value Reference Range Interpretation Comments CO2 (test code = CO2) 27 24-32 [place] 722562-02-28 08:57:00 Test Item Value Reference Range Interpretation Comments Calcium Lvl (test code = Calcium Lvl) 9.5 8.5-10.5 [place] 722562-02-28 08:57:00 Test Item Value Reference Range Interpretation Comments AGAP (test code = AGAP) 8.9 10.0-20.0 [place] 722562-02-28 08:57:00 Test Item Value Reference Range Interpretation Comments eGFR (test code = eGFR) 69 [place] [address]-02-28 08:57:00 Test Item Value Reference Range Interpretation Comments WBC (test code = WBC) 8.5 3.7-10.4 [place] [address]-02-28 08:57:00 Test Item Value Reference Range Interpretation Comments RBC (test code = RBC) 4.69 4.70-6.10 [place] [address]-02-28 08:57:00 Test Item Value Reference Range Interpretation Comments Hgb (test code = Hgb) 13.3 14.0-18.0 [place] [address]-02-28 08:57:00 Test Item Value Reference Range Interpretation Comments Hct (test code = Hct) 40.4 42.0-54.0 [place] 199062-02-28 08:57:00 Test Item Value Reference Range Interpretation Comments MCV (test code = MCV) 86.1 80.0-94.0 [place] 199062-02-28 08:57:00 Test Item Value Reference Range Interpretation Comments MCH (test code = MCH) 28.3 pg 27.0-31.0 [facility] TexasIdbgmkeHWWHLAMTXK5344-69-86 08:57:00 Test Item Value Reference Range Interpretation Comments MCHC (test code = MCHC) 32.9 32.0-36.0 [place] 199062-02-28 08:57:00 Test Item Value Reference Range Interpretation Comments RDW (test code = RDW) 14.1 11.5-14.5 [place] 199062-02-28 08:57:00 Test Item Value Reference Range Interpretation Comments Platelet (test code = Platelet) 192 133-450 [facility] TexasAhscvipZRGHFLFVKF4262-58-33 08:57:00 Test Item Value Reference Range Interpretation Comments MPV (test code = MPV) 9.2 7.4-10.4 [place] 199062-02-28 08:57:00 Test Item Value Reference Range Interpretation Comments R-time (test code = R-time) 6.0 min 5.0-10.0 [place] 199062-02-28 08:57:00 Test Item Value Reference Range Interpretation Comments K-time (test code = K-time) 1.4 min 1.0-3.0 [place] 199062-02-28 08:57:00 Test Item Value Reference Range Interpretation Comments Angle (test code = Angle) 69.7 degrees 53.0-72.0 [place] 199062-02-28 08:57:00 Test Item Value Reference Range Interpretation Comments Max Amp (test code = Max Amp) 66.3 mm 50.0-70.0 [place] 199062-02-28 08:57:00 Test Item Value Reference Range Interpretation Comments G-value (test code = G-value) 9.8 4.5-11.0 [place] 199062-02-28 08:57:00 Test Item Value Reference Range Interpretation Comments Ly30 (test code = 0.6 See_Comment [Automate d message] The Ly30) system which ge nerated this result transmit leydi reference range : <=7.5. The reference range was not used to interpr et this result as krishna l/abnormal. [place] [address]-02-28 08:57:00 Test Item Value Reference Range Interpretation Comments Coag Index (test code 1.2 1 See_Comment [Auto mated message] The = Coag Index) system which g enerated this result transmit leydi reference range : <=3.0. The reference range was not used to interpr et this result as krishna l/abnormal. [place] 199062-02-28 08:57:00 Test Item Value Reference Range Interpretation Comments TEG Data (test code = See Note (10/09/21 2:57 TEG Data) AM) [place] [address]-02-28 08:57:00 Test Item Value Reference Range Interpretation Comments PT (test code = PT) 12.1 s 12.0-14.7 [place] [address]-02-28 08:57:00 Test Item Value Reference Range Interpretation Comments INR (test code = INR) 0.90 1 0.85-1.17 [place] [address]-02-28 08:57:00 Test Item Value Reference Range Interpretation Comments PTT (test code = PTT) 27.6 s 22.9-35.8 [place] [address]-02-28 08:57:00 Test Item Value Reference Range Interpretation Comments Segs (test code = Segs) 52.0 45.0-75.0 [place] [address]-02-28 08:57:00 Test Item Value Reference Range Interpretation Comments Lymphocytes (test code = Lymphocytes) 33.8 20.0-40.0 [place] [address]-02-28 08:57:00 Test Item Value Reference Range Interpretation Comments Monocytes (test code = Monocytes) 8.0 2.0-12.0 [place] [address]-02-28 08:57:00 Test Item Value Reference Range Interpretation Comments Eosinophils (test code = 5.8 See_Comment [A utomated message] The Eosinophils) system which ge nerated this result tra nsmitted reference range : <=4.0. The reference r caleb was not used to int erpret this result as normal/abnormal . [place] [address]062-02-28 08:57:00 Test Item Value Reference Range Interpretation Comments Basophils (test code = 0.4 See_Comment [Aut omated message] The Basophils) system which ge nerated this result tra nsmitted reference range : <=1.0. The reference r caleb was not used to int erpret this result as normal/abnormal . [place] 199062-02-28 08:57:00 Test Item Value Reference Range Interpretation Comments Neutrophils # (test code = Neutrophils 4.4 1.5-8.1 #) [place] [address]-02-28 08:57:00 Test Item Value Reference Range Interpretation Comments Lymphocytes # (test code = Lymphocytes 2.9 1.0-5.5 #) [place] [address]-02-28 08:57:00 Test Item Value Reference Range Interpretation Comments Monocytes # (test code 0.7 See_Comment [Aut omated message] The = Monocytes #) system which generated this result tra nsmitted reference range : <=0.8. The reference r caleb was not used to int erpret this result as normal/abnormal . [place] [address]062-02-28 08:57:00 Test Item Value Reference Range Interpretation Comments Eosinophils # (test code 0.5 See_Comment [A utomated message] The = Eosinophils #) system whic h generated this result tra nsmitted reference range : <=0.5. The reference r caleb was not used to int erpret this result as normal/abnormal . [place] 199062-02-28 08:57:00 Test Item Value Reference Range Interpretation Comments TEG Interp (test Thrombelastograph results code = TEG are within reference ranges. Interp) Note that TEG does not show effect of NSAIDs or P2Y12 inhibitors. CPT:33358 [place] 722562-02-28 02:07:26 Test Item Value Reference Range Interpretation Comments Glucose Lvl (test code = Glucose Lvl) 95 70-99 [place] 722562-02-28 02:07:26 Test Item Value Reference Range Interpretation Comments BUN (test code = BUN) 13 7-22 [place] 722562-02-28 02:07:26 Test Item Value Reference Range Interpretation Comments Creatinine Lvl (test code = Creatinine 1.24 0.50-1.40 Lvl) [place] 722562-02-28 02:07:26 Test Item Value Reference Range Interpretation Comments Sodium Lvl (test code = Sodium Lvl) 140 135-145 [place] 722562-02-28 02:07:26 Test Item Value Reference Range Interpretation Comments Potassium Lvl (test code = Potassium 3.7 3.5-5.1 Lvl) [place] 722562-02-28 02:07:26 Test Item Value Reference Range Interpretation Comments Chloride Lvl (test code = Chloride Lvl) 106 95-109 [place] 722562-02-28 02:07:26 Test Item Value Reference Range Interpretation Comments CO2 (test code = CO2) 30 24-32 [place] 722562-02-28 02:07:26 Test Item Value Reference Range Interpretation Comments Calcium Lvl (test code = Calcium Lvl) 9.5 8.5-10.5 [place] 722562-02-28 02:07:26 Test Item Value Reference Range Interpretation Comments AGAP (test code = AGAP) 7.7 10.0-20.0 [place] 722562-02-28 02:07:26 Test Item Value Reference Range Interpretation Comments eGFR (test code = eGFR) 72 [place] 199062-02-28 02:07:26 Test Item Value Reference Range Interpretation Comments WBC X 10x3 (test code = WBC X 10x3) 7.4 3.7-10.4 [place] [address]062-02-28 02:07:26 Test Item Value Reference Range Interpretation Comments RBC X 10x6 (test code = RBC X 10x6) 5.06 4.70-6.10 [place] [address]062-02-28 02:07:26 Test Item Value Reference Range Interpretation Comments Hgb (test code = Hgb) 14.0 14.0-18.0 [place] 199062-02-28 02:07:26 Test Item Value Reference Range Interpretation Comments Hct (test code = Hct) 43.5 42.0-54.0 [place] 199062-02-28 02:07:26 Test Item Value Reference Range Interpretation Comments MCV (test code = MCV) 85.9 80.0-94.0 [place] 199062-02-28 02:07:26 Test Item Value Reference Range Interpretation Comments MCH (test code = MCH) 27.7 pg 27.0-31.0 [facility] TexasPxywazaNEBSJWBWHJ9884-87-23 02:07:26 Test Item Value Reference Range Interpretation Comments MCHC (test code = MCHC) 32.3 32.0-36.0 [place] [address]062-02-28 02:07:26 Test Item Value Reference Range Interpretation Comments RDW (test code = RDW) 13.9 11.5-14.5 [place] 199062-02-28 02:07:26 Test Item Value Reference Range Interpretation Comments Platelet (test code = Platelet) 192 133-450 [place] 199062-02-28 02:07:26 Test Item Value Reference Range Interpretation Comments MPV (test code = MPV) 9.1 7.4-10.4 [place] 199062-02-28 02:07:26 Test Item Value Reference Range Interpretation Comments ACT (TEG) Rapid (test code = ACT (TEG) 128 s 86-118 Rapid) [facility] TexasHsdhieeLJTKSCCMIK0569-88-05 02:07:26 Test Item Value Reference Range Interpretation Comments Split Point Rapid (test code = Split 0.7 min Point Rapid) [place] [address]062-02-28 02:07:26 Test Item Value Reference Range Interpretation Comments R-time Rapid (test code = R-time 0.8 min 0.4-0.7 Rapid) [place] [address]062-02-28 02:07:26 Test Item Value Reference Range Interpretation Comments K-time Rapid (test code = K-time 1.1 min 0.6-2.3 Rapid) [place] [address]062-02-28 02:07:26 Test Item Value Reference Range Interpretation Comments Angle Rapid (test code = Angle 76 degrees 64-80 Rapid) [place] 199062-02-28 02:07:26 Test Item Value Reference Range Interpretation Comments Max Amplitude Rapid (test code = Max 71 mm 52-71 Amplitude Rapid) [place] 199062-02-28 02:07:26 Test Item Value Reference Range Interpretation Comments G-value Rapid (test code = G-value 12.1 5.0-11.6 Rapid) [address]02-28 02:07:26 Test Item Value Reference Range Interpretation Comments Estimated % Lysis Rapid 0.8 See_Comment [Au tomated message] The (test code = Estimated syste m which generated % Lysis Rapid) this result t ransmitted reference range : <=7.5. The reference r caleb was not used to int erpret this result as normal/abnormal . [place] [address]062-02-28 02:07:26 Test Item Value Reference Range Interpretation Comments PT (test code = PT) 12.5 s 12.0-14.7 [place] [address]062-02-28 02:07:26 Test Item Value Reference Range Interpretation Comments INR (test code = INR) 0.94 1 0.85-1.17 [place] [address]062-02-28 02:07:26 Test Item Value Reference Range Interpretation Comments PTT (test code = PTT) 29.6 s 22.9-35.8 [place] [address]062-02-28 02:07:26 Test Item Value Reference Range Interpretation Comments Segs (test code = Segs) 57.2 45.0-75.0 [place] [address]062-02-28 02:07:26 Test Item Value Reference Range Interpretation Comments Lymphocytes (test code = Lymphocytes) 30.9 20.0-40.0 [place] [address]062-02-28 02:07:26 Test Item Value Reference Range Interpretation Comments Monocytes (test code = Monocytes) 5.6 2.0-12.0 [place] [address]062-02-28 02:07:26 Test Item Value Reference Range Interpretation Comments Eosinophils (test code = 5.6 See_Comment [A utomated message] The Eosinophils) system which ge nerated this result tra nsmitted reference range : <=4.0. The reference r caleb was not used to int erpret this result as normal/abnormal . [facility] TexasYqjdghpAEFMSWZKGJ4406-23-76 02:07:26 Test Item Value Reference Range Interpretation Comments Basophils (test code = 0.7 See_Comment [Aut omated message] The Basophils) system which ge nerated this result tra nsmitted reference range : <=1.0. The reference r caleb was not used to int erpret this result as normal/abnormal . [place] [address]062-02-28 02:07:26 Test Item Value Reference Range Interpretation Comments Neutrophils # (test code = Neutrophils 4.3 1.5-8.1 #) [facility] TexasYwmeqvrWMPETQFEQM1349-57-68 02:07:26 Test Item Value Reference Range Interpretation Comments Lymphocytes # (test code = Lymphocytes 2.3 1.0-5.5 #) [facility] TexasXuetzdrUVLUVIASSU5417-78-81 02:07:26 Test Item Value Reference Range Interpretation Comments Monocytes # (test code 0.4 See_Comment [Aut omated message] The = Monocytes #) system which generated this result tra nsmitted reference range : <=0.8. The reference r caleb was not used to int erpret this result as normal/abnormal . [facility] TexasHfdwoymTCVHHDVIEE2801-49-76 02:07:26 Test Item Value Reference Range Interpretation Comments Eosinophils # (test code 0.4 See_Comment [A utomated message] The = Eosinophils #) system whic h generated this result tra nsmitted reference range : <=0.5. The reference r caleb was not used to int erpret this result as normal/abnormal . [facility]78[facility] 02:07:26 Test Item Value Reference Range Interpretation Comments Coronavirus (COVID-19) Not Detected (10/08/21 LIZBETH (test code = 8:07 PM) Coronavirus (COVID-19) LIZBETH) [facility]2022-02-28 02:07:26 Test Item Value Reference Range Interpretation Comments Glucose Lvl (test code = Glucose Lvl) 95 70-99 [facility]2022-02-28 02:07:26 Test Item Value Reference Range Interpretation Comments BUN (test code = BUN) 13 7-22 [place] 722562-02-28 02:07:26 Test Item Value Reference Range Interpretation Comments Creatinine Lvl (test code = Creatinine 1.24 0.50-1.40 Lvl) [facility]2022-02-28 02:07:26 Test Item Value Reference Range Interpretation Comments Sodium Lvl (test code = Sodium Lvl) 140 135-145 [place] 722562-02-28 02:07:26 Test Item Value Reference Range Interpretation Comments Potassium Lvl (test code = Potassium 3.7 3.5-5.1 Lvl) [place] 722562-02-28 02:07:26 Test Item Value Reference Range Interpretation Comments Chloride Lvl (test code = Chloride Lvl) 106 95-109 [place] 722562-02-28 02:07:26 Test Item Value Reference Range Interpretation Comments CO2 (test code = CO2) 30 24-32 [place] 722562-02-28 02:07:26 Test Item Value Reference Range Interpretation Comments Calcium Lvl (test code = Calcium Lvl) 9.5 8.5-10.5 [place] 722562-02-28 02:07:26 Test Item Value Reference Range Interpretation Comments AGAP (test code = AGAP) 7.7 10.0-20.0 [place] 722562-02-28 02:07:26 Test Item Value Reference Range Interpretation Comments eGFR (test code = eGFR) 72 [place] 199062-02-28 02:07:26 Test Item Value Reference Range Interpretation Comments WBC X 10x3 (test code = WBC X 10x3) 7.4 3.7-10.4 [place] 199062-02-28 02:07:26 Test Item Value Reference Range Interpretation Comments RBC X 10x6 (test code = RBC X 10x6) 5.06 4.70-6.10 [place] 199062-02-28 02:07:26 Test Item Value Reference Range Interpretation Comments Hgb (test code = Hgb) 14.0 14.0-18.0 [place] [address]-02-28 02:07:26 Test Item Value Reference Range Interpretation Comments Hct (test code = Hct) 43.5 42.0-54.0 [place] 199062-02-28 02:07:26 Test Item Value Reference Range Interpretation Comments MCV (test code = MCV) 85.9 80.0-94.0 [place] [address]-02-28 02:07:26 Test Item Value Reference Range Interpretation Comments MCH (test code = MCH) 27.7 pg 27.0-31.0 [place] [address]-02-28 02:07:26 Test Item Value Reference Range Interpretation Comments MCHC (test code = MCHC) 32.3 32.0-36.0 [place] 199062-02-28 02:07:26 Test Item Value Reference Range Interpretation Comments RDW (test code = RDW) 13.9 11.5-14.5 [place] 199062-02-28 02:07:26 Test Item Value Reference Range Interpretation Comments Platelet (test code = Platelet) 192 133-450 [place] 199062-02-28 02:07:26 Test Item Value Reference Range Interpretation Comments MPV (test code = MPV) 9.1 7.4-10.4 [place] [address]-02-28 02:07:26 Test Item Value Reference Range Interpretation Comments ACT (TEG) Rapid (test code = ACT (TEG) 128 s 86-118 Rapid) [address]02-28 02:07:26 Test Item Value Reference Range Interpretation Comments Split Point Rapid (test code = Split 0.7 min Point Rapid) [address]02-28 02:07:26 Test Item Value Reference Range Interpretation Comments R-time Rapid (test code = R-time 0.8 min 0.4-0.7 Rapid) [place] [address]-02-28 02:07:26 Test Item Value Reference Range Interpretation Comments K-time Rapid (test code = K-time 1.1 min 0.6-2.3 Rapid) [place] [address]-02-28 02:07:26 Test Item Value Reference Range Interpretation Comments Angle Rapid (test code = Angle 76 degrees 64-80 Rapid) [place] 199062-02-28 02:07:26 Test Item Value Reference Range Interpretation Comments Max Amplitude Rapid (test code = Max 71 mm 52-71 Amplitude Rapid) [place] [address]-02-28 02:07:26 Test Item Value Reference Range Interpretation Comments G-value Rapid (test code = G-value 12.1 5.0-11.6 Rapid) [place] [address]-02-28 02:07:26 Test Item Value Reference Range Interpretation Comments Estimated % Lysis Rapid 0.8 See_Comment [Au tomated message] The (test code = Estimated syste m which generated % Lysis Rapid) this result t ransmitted reference range : <=7.5. The reference r caleb was not used to int erpret this result as normal/abnormal . [place] 199062-02-28 02:07:26 Test Item Value Reference Range Interpretation Comments PT (test code = PT) 12.5 s 12.0-14.7 [place] 199062-02-28 02:07:26 Test Item Value Reference Range Interpretation Comments INR (test code = INR) 0.94 1 0.85-1.17 [place] 199062-02-28 02:07:26 Test Item Value Reference Range Interpretation Comments PTT (test code = PTT) 29.6 s 22.9-35.8 [place] [address]-02-28 02:07:26 Test Item Value Reference Range Interpretation Comments Segs (test code = Segs) 57.2 45.0-75.0 [place] [address]-02-28 02:07:26 Test Item Value Reference Range Interpretation Comments Lymphocytes (test code = Lymphocytes) 30.9 20.0-40.0 [place] [address]-02-28 02:07:26 Test Item Value Reference Range Interpretation Comments Monocytes (test code = Monocytes) 5.6 2.0-12.0 [place] 199062-02-28 02:07:26 Test Item Value Reference Range Interpretation Comments Eosinophils (test code = 5.6 See_Comment [A utomated message] The Eosinophils) system which ge nerated this result tra nsmitted reference range : <=4.0. The reference r caleb was not used to int erpret this result as normal/abnormal . [place] 199062-02-28 02:07:26 Test Item Value Reference Range Interpretation Comments Basophils (test code = 0.7 See_Comment [Aut omated message] The Basophils) system which ge nerated this result tra nsmitted reference range : <=1.0. The reference r caleb was not used to int erpret this result as normal/abnormal . [place] [address]062-02-28 02:07:26 Test Item Value Reference Range Interpretation Comments Neutrophils # (test code = Neutrophils 4.3 1.5-8.1 #) [place] [address]062-02-28 02:07:26 Test Item Value Reference Range Interpretation Comments Lymphocytes # (test code = Lymphocytes 2.3 1.0-5.5 #) [place] [address]062-02-28 02:07:26 Test Item Value Reference Range Interpretation Comments Monocytes # (test code 0.4 See_Comment [Aut omated message] The = Monocytes #) system which generated this result tra nsmitted reference range : <=0.8. The reference r caleb was not used to int erpret this result as normal/abnormal . [facility]HopsaivJZGHOHCBSF3707-32-67 02:07:26 Test Item Value Reference Range Interpretation Comments Eosinophils # (test code 0.4 See_Comment [A utomated message] The = Eosinophils #) system whic h generated this result tra nsmitted reference range : <=0.5. The reference r caleb was not used to int erpret this result as normal/abnormal . [facility] CgclouzGRVXFERGJH6141-73-42 02:07:26 Test Item Value Reference Range Interpretation Comments Coronavirus (COVID-19) Not Detected (10/08/21 LIZBETH (test code = 8:07 PM) Coronavirus (COVID-19) LIZBETH) [employer] [id number] 01:55:00 Test Item Value Reference Range Interpretation Comments ABO/Rh (test code = ABO/Rh) O POS [employer] [id number] 01:55:00 Test Item Value Reference Range Interpretation Comments Antibody Scrn (test Negative (10/08/21 7:55 code = Antibody Scrn) PM) [employer]2022-02-28 01:55:00 Test Item Value Reference Range Interpretation Comments ABO/Rh (test code = ABO/Rh) O POS [employer] [id number] 01:55:00 Test Item Value Reference Range Interpretation Comments Antibody Scrn (test Negative (10/08/21 7:55 code = Antibody Scrn) PM) [employer]2022-02-22 19:46:00 Test Item Value Reference Range Interpretation Comments Glucose Lvl (test code = Glucose Lvl) 133 70-99 [employer]2022-02-22 19:46:00 Test Item Value Reference Range Interpretation Comments BUN (test code = BUN) 14 7-22 [employer]2022-02-22 19:46:00 Test Item Value Reference Range Interpretation Comments Creatinine Lvl (test code = Creatinine 1.22 0.50-1.40 Lvl) [employer]2022-02-22 19:46:00 Test Item Value Reference Range Interpretation Comments Sodium Lvl (test code = Sodium Lvl) 138 135-145 [place] 722562-02-22 19:46:00 Test Item Value Reference Range Interpretation Comments Potassium Lvl (test code = Potassium 4.1 3.5-5.1 Lvl) [place] 722562-02-22 19:46:00 Test Item Value Reference Range Interpretation Comments Chloride Lvl (test code = Chloride Lvl) 108 95-109 [place] 722562-02-22 19:46:00 Test Item Value Reference Range Interpretation Comments CO2 (test code = CO2) 26 24-32 [place] 722562-02-22 19:46:00 Test Item Value Reference Range Interpretation Comments Calcium Lvl (test code = Calcium Lvl) 8.6 8.5-10.5 [place] 722562-02-22 19:46:00 Test Item Value Reference Range Interpretation Comments AGAP (test code = AGAP) 8.1 10.0-20.0 [place] 722562-02-22 19:46:00 Test Item Value Reference Range Interpretation Comments eGFR (test code = eGFR) 73 [place] 199062-02-22 19:46:00 Test Item Value Reference Range Interpretation Comments WBC (test code = WBC) 6.2 3.7-10.4 [place] [address]-02-22 19:46:00 Test Item Value Reference Range Interpretation Comments RBC (test code = RBC) 4.91 4.70-6.10 [place] [address]-02-22 19:46:00 Test Item Value Reference Range Interpretation Comments Hgb (test code = Hgb) 13.7 14.0-18.0 [address]02-22 19:46:00 Test Item Value Reference Range Interpretation Comments Hct (test code = Hct) 42.1 42.0-54.0 [address]02-22 19:46:00 Test Item Value Reference Range Interpretation Comments MCV (test code = MCV) 85.8 80.0-94.0 [address]02-22 19:46:00 Test Item Value Reference Range Interpretation Comments MCH (test code = MCH) 27.9 pg 27.0-31.0 [place] 199062-02-22 19:46:00 Test Item Value Reference Range Interpretation Comments MCHC (test code = MCHC) 32.6 32.0-36.0 [place] [address]062-02-22 19:46:00 Test Item Value Reference Range Interpretation Comments RDW (test code = RDW) 14.3 11.5-14.5 [place] [address]062-02-22 19:46:00 Test Item Value Reference Range Interpretation Comments Platelet (test code = Platelet) 153 133-450 [place] 199062-02-22 19:46:00 Test Item Value Reference Range Interpretation Comments MPV (test code = MPV) 9.5 7.4-10.4 [place] [address]062-02-22 19:46:00 Test Item Value Reference Range Interpretation Comments PT (test code = PT) 12.2 s 12.0-14.7 [place] [address]062-02-22 19:46:00 Test Item Value Reference Range Interpretation Comments INR (test code = INR) 0.91 1 0.85-1.17 [place] [address]062-02-22 19:46:00 Test Item Value Reference Range Interpretation Comments PTT (test code = PTT) 27.1 s 22.9-35.8 [place] 199062-02-22 19:46:00 Test Item Value Reference Range Interpretation Comments Plt Morph (test code = Normal (10/03/21 1:46 Plt Morph) PM) [place] [address]062-02-22 19:46:00 Test Item Value Reference Range Interpretation Comments Segs (test code = Segs) 83.7 45.0-75.0 [place] 199062-02-22 19:46:00 Test Item Value Reference Range Interpretation Comments Lymphocytes (test code = Lymphocytes) 12.3 20.0-40.0 [place] 199062-02-22 19:46:00 Test Item Value Reference Range Interpretation Comments Monocytes (test code = Monocytes) 1.6 2.0-12.0 [place] 199062-02-22 19:46:00 Test Item Value Reference Range Interpretation Comments Eosinophils (test code = 2.0 See_Comment [A utomated message] The Eosinophils) system which ge nerated this result tra nsmitted reference range : <=4.0. The reference r caleb was not used to int erpret this result as normal/abnormal . [facility] Tex[id number] 19:46:00 Test Item Value Reference Range Interpretation Comments Basophils (test code = 0.4 See_Comment [Aut omated message] The Basophils) system which ge nerated this result tra nsmitted reference range : <=1.0. The reference r caleb was not used to int erpret this result as normal/abnormal . [facility] TexasNquzwmcREBNGSWMWG3179-81-09 19:46:00 Test Item Value Reference Range Interpretation Comments Neutrophils # (test code = Neutrophils 5.2 1.5-8.1 #) [facility] TexasYlehqnfNLGBBWZTTC5222-87-91 19:46:00 Test Item Value Reference Range Interpretation Comments Lymphocytes # (test code = Lymphocytes 0.8 1.0-5.5 #) [facility] TexasAgjkfcrRCCQYBKVYO0491-69-97 19:46:00 Test Item Value Reference Range Interpretation Comments Monocytes # (test code 0.1 See_Comment [Aut omated message] The = Monocytes #) system which generated this result tra nsmitted reference range : <=0.8. The reference r caleb was not used to int erpret this result as normal/abnormal . [facility] TexasHrfxpzwFVSDHBWKDT1218-83-81 19:46:00 Test Item Value Reference Range Interpretation Comments Eosinophils # (test code 0.1 See_Comment [A utomated message] The = Eosinophils #) system ic h generated this result tra nsmitted reference range : <=0.5. The reference r caleb was not used to int erpret this result as normal/abnormal . [facility]2022-02-22 19:46:00 Test Item Value Reference Range Interpretation Comments Glucose Lvl (test code = Glucose Lvl) 133 70-99 [facility]2022-02-22 19:46:00 Test Item Value Reference Range Interpretation Comments BUN (test code = BUN) 14 7-22 [place] 722562-02-22 19:46:00 Test Item Value Reference Range Interpretation Comments Creatinine Lvl (test code = Creatinine 1.22 0.50-1.40 Lvl) [facility]2022-02-22 19:46:00 Test Item Value Reference Range Interpretation Comments Sodium Lvl (test code = Sodium Lvl) 138 135-145 [place] 722562-02-22 19:46:00 Test Item Value Reference Range Interpretation Comments Potassium Lvl (test code = Potassium 4.1 3.5-5.1 Lvl) [place] 722562-02-22 19:46:00 Test Item Value Reference Range Interpretation Comments Chloride Lvl (test code = Chloride Lvl) 108 95-109 [place] 722562-02-22 19:46:00 Test Item Value Reference Range Interpretation Comments CO2 (test code = CO2) 26 24-32 [place] 722562-02-22 19:46:00 Test Item Value Reference Range Interpretation Comments Calcium Lvl (test code = Calcium Lvl) 8.6 8.5-10.5 [place] 722562-02-22 19:46:00 Test Item Value Reference Range Interpretation Comments AGAP (test code = AGAP) 8.1 10.0-20.0 [place] 722562-02-22 19:46:00 Test Item Value Reference Range Interpretation Comments eGFR (test code = eGFR) 73 [place] 199062-02-22 19:46:00 Test Item Value Reference Range Interpretation Comments WBC (test code = WBC) 6.2 3.7-10.4 [place] [address]062-02-22 19:46:00 Test Item Value Reference Range Interpretation Comments RBC (test code = RBC) 4.91 4.70-6.10 [place] 199062-02-22 19:46:00 Test Item Value Reference Range Interpretation Comments Hgb (test code = Hgb) 13.7 14.0-18.0 [place] [address]-02-22 19:46:00 Test Item Value Reference Range Interpretation Comments Hct (test code = Hct) 42.1 42.0-54.0 [place] 199062-02-22 19:46:00 Test Item Value Reference Range Interpretation Comments MCV (test code = MCV) 85.8 80.0-94.0 [place] [address]-02-22 19:46:00 Test Item Value Reference Range Interpretation Comments MCH (test code = MCH) 27.9 pg 27.0-31.0 [address]02-22 19:46:00 Test Item Value Reference Range Interpretation Comments MCHC (test code = MCHC) 32.6 32.0-36.0 [place] [address]062-02-22 19:46:00 Test Item Value Reference Range Interpretation Comments RDW (test code = RDW) 14.3 11.5-14.5 [place] [address]062-02-22 19:46:00 Test Item Value Reference Range Interpretation Comments Platelet (test code = Platelet) 153 133-450 [place] 199062-02-22 19:46:00 Test Item Value Reference Range Interpretation Comments MPV (test code = MPV) 9.5 7.4-10.4 [place] [address]062-02-22 19:46:00 Test Item Value Reference Range Interpretation Comments PT (test code = PT) 12.2 s 12.0-14.7 [place] [address]062-02-22 19:46:00 Test Item Value Reference Range Interpretation Comments INR (test code = INR) 0.91 1 0.85-1.17 [place] [address]062-02-22 19:46:00 Test Item Value Reference Range Interpretation Comments PTT (test code = PTT) 27.1 s 22.9-35.8 [place] [address]062-02-22 19:46:00 Test Item Value Reference Range Interpretation Comments Plt Morph (test code = Normal (10/03/21 1:46 Plt Morph) PM) [place] [address]062-02-22 19:46:00 Test Item Value Reference Range Interpretation Comments Segs (test code = Segs) 83.7 45.0-75.0 [place] [address]062-02-22 19:46:00 Test Item Value Reference Range Interpretation Comments Lymphocytes (test code = Lymphocytes) 12.3 20.0-40.0 [place] [address]062-02-22 19:46:00 Test Item Value Reference Range Interpretation Comments Monocytes (test code = Monocytes) 1.6 2.0-12.0 [place] [address]062-02-22 19:46:00 Test Item Value Reference Range Interpretation Comments Eosinophils (test code = 2.0 See_Comment [A utomated message] The Eosinophils) system which ge nerated this result tra nsmitted reference range : <=4.0. The reference r caleb was not used to int erpret this result as normal/abnormal . [facility]JrieaoqADOVLHHGTN4912-82-86 19:46:00 Test Item Value Reference Range Interpretation Comments Basophils (test code = 0.4 See_Comment [Aut omated message] The Basophils) system which ge nerated this result tra nsmitted reference range : <=1.0. The reference r caleb was not used to int erpret this result as normal/abnormal . [facility] HospitalMvbfusdUNYBASIQNB1720-77-70 19:46:00 Test Item Value Reference Range Interpretation Comments Neutrophils # (test code = Neutrophils 5.2 1.5-8.1 #) [facility] TexasVoecguwLIFFQOGAZE7256-99-83 19:46:00 Test Item Value Reference Range Interpretation Comments Lymphocytes # (test code = Lymphocytes 0.8 1.0-5.5 #) [facility] TexasPjnhqfpVQURRDFDBJ9514-62-05 19:46:00 Test Item Value Reference Range Interpretation Comments Monocytes # (test code 0.1 See_Comment [Aut omated message] The = Monocytes #) system which generated this result tra nsmitted reference range : <=0.8. The reference r caleb was not used to int erpret this result as normal/abnormal . [facility] HospitalZrtrblyDYPZEDUAID1653-96-55 19:46:00 Test Item Value Reference Range Interpretation Comments Eosinophils # (test code 0.1 See_Comment [A utomated message] The = Eosinophils #) system whic h generated this result tra nsmitted reference range : <=0.5. The reference r caleb was not used to int erpret this result as normal/abnormal . [facility] [employer] [id number] 17:31:00 Test Item Value Reference Range Interpretation Comments ABO/Rh (test code = ABO/Rh) O POS [facility] [employer] HIOHNBA4079-23-18 17:31:00 Test Item Value Reference Range Interpretation Comments Antibody Scrn (test Negative (10/02/21 code = Antibody Scrn) 11:31 AM) [facility] [employer] [id number] 17:31:00 Test Item Value Reference Range Interpretation Comments Glucose Lvl (test code = Glucose Lvl) 92 70-99 [facility] [employer] [id number] 17:31:00 Test Item Value Reference Range Interpretation Comments BUN (test code = BUN) 17 7-22 [place] 722562-02-21 17:31:00 Test Item Value Reference Range Interpretation Comments Creatinine Lvl (test code = Creatinine 1.21 0.50-1.40 Lvl) [place] 722562-02-21 17:31:00 Test Item Value Reference Range Interpretation Comments Sodium Lvl (test code = Sodium Lvl) 140 135-145 [place] 722562-02-21 17:31:00 Test Item Value Reference Range Interpretation Comments Potassium Lvl (test code = Potassium 4.2 3.5-5.1 Lvl) [place] 722562-02-21 17:31:00 Test Item Value Reference Range Interpretation Comments Chloride Lvl (test code = Chloride Lvl) 108 95-109 [place] 722562-02-21 17:31:00 Test Item Value Reference Range Interpretation Comments CO2 (test code = CO2) 26 24-32 [place] 722562-02-21 17:31:00 Test Item Value Reference Range Interpretation Comments Calcium Lvl (test code = Calcium Lvl) 9.4 8.5-10.5 [place] 722562-02-21 17:31:00 Test Item Value Reference Range Interpretation Comments AGAP (test code = AGAP) 10.2 10.0-20.0 [place] 722562-02-21 17:31:00 Test Item Value Reference Range Interpretation Comments eGFR (test code = eGFR) 74 [place] 199062-02-21 17:31:00 Test Item Value Reference Range Interpretation Comments PTT (test code = PTT) 28.1 s 22.9-35.8 [place] [address]-02-21 17:31:00 Test Item Value Reference Range Interpretation Comments PT (test code = PT) 11.8 s 12.0-14.7 [place] [address]-02-21 17:31:00 Test Item Value Reference Range Interpretation Comments INR (test code = INR) 0.87 1 0.85-1.17 [place] [address]-02-21 17:31:00 Test Item Value Reference Range Interpretation Comments WBC (test code = WBC) 5.4 3.7-10.4 [place] 199062-02-21 17:31:00 Test Item Value Reference Range Interpretation Comments RBC (test code = RBC) 4.90 4.70-6.10 [place] [address]-02-21 17:31:00 Test Item Value Reference Range Interpretation Comments Hgb (test code = Hgb) 13.7 14.0-18.0 [place] [address]-02-21 17:31:00 Test Item Value Reference Range Interpretation Comments Hct (test code = Hct) 42.0 42.0-54.0 [place] [address]062-02-21 17:31:00 Test Item Value Reference Range Interpretation Comments MCV (test code = MCV) 85.6 80.0-94.0 [place] 199062-02-21 17:31:00 Test Item Value Reference Range Interpretation Comments MCH (test code = MCH) 27.9 pg 27.0-31.0 [place] [address]-02-21 17:31:00 Test Item Value Reference Range Interpretation Comments MCHC (test code = MCHC) 32.6 32.0-36.0 [place] 199062-02-21 17:31:00 Test Item Value Reference Range Interpretation Comments RDW (test code = RDW) 14.1 11.5-14.5 [place] [address]-02-21 17:31:00 Test Item Value Reference Range Interpretation Comments Platelet (test code = Platelet) 173 133-450 [place] 199062-02-21 17:31:00 Test Item Value Reference Range Interpretation Comments MPV (test code = MPV) 10.1 7.4-10.4 [place] [address]-02-21 17:31:00 Test Item Value Reference Range Interpretation Comments Segs (test code = Segs) 54.1 45.0-75.0 [place] [address]-02-21 17:31:00 Test Item Value Reference Range Interpretation Comments Lymphocytes (test code = Lymphocytes) 30.9 20.0-40.0 [place] [address]-02-21 17:31:00 Test Item Value Reference Range Interpretation Comments Monocytes (test code = Monocytes) 6.7 2.0-12.0 [place] [address]-02-21 17:31:00 Test Item Value Reference Range Interpretation Comments Eosinophils (test code = 7.7 See_Comment [A utomated message] The Eosinophils) system which ge nerated this result tra nsmitted reference range : <=4.0. The reference r caleb was not used to int erpret this result as normal/abnormal . [facility] TexasByjgtswDTXMLYCHUQ5263-72-32 17:31:00 Test Item Value Reference Range Interpretation Comments Basophils (test code = 0.6 See_Comment [Aut omated message] The Basophils) system which ge nerated this result tra nsmitted reference range : <=1.0. The reference r caleb was not used to int erpret this result as normal/abnormal . [facility] TexasRoytuoeRDGAAZPGTG6609-78-81 17:31:00 Test Item Value Reference Range Interpretation Comments Neutrophils # (test code = Neutrophils 2.9 1.5-8.1 #) [facility] TexasQhhblxsPZCWFQPYJJ9357-10-54 17:31:00 Test Item Value Reference Range Interpretation Comments Lymphocytes # (test code = Lymphocytes 1.7 1.0-5.5 #) [facility] TexasGnknykrDBLCQZVMSJ0168-67-20 17:31:00 Test Item Value Reference Range Interpretation Comments Monocytes # (test code 0.4 See_Comment [Aut omated message] The = Monocytes #) system which generated this result tra nsmitted reference range : <=0.8. The reference r caleb was not used to int erpret this result as normal/abnormal . [facility] TexasRfxbhmtNJSHWSHWGE3444-50-59 17:31:00 Test Item Value Reference Range Interpretation Comments Eosinophils # (test code 0.4 See_Comment [A utomated message] The = Eosinophils #) system whic h generated this result tra nsmitted reference range : <=0.5. The reference r caleb was not used to int erpret this result as normal/abnormal . [facility]2432[facility] 17:31:00 Test Item Value Reference Range Interpretation Comments Coronavirus (COVID-19) Not Detected (10/02/21 LIZBETH (test code = 11:31 AM) Coronavirus (COVID-19) LIZBETH) [facility] [id number] 17:31:00 Test Item Value Reference Range Interpretation Comments Hgb A1C (test code = Hgb A1C) 5.7 [facility] BANK [id number] 17:31:00 Test Item Value Reference Range Interpretation Comments ABO/Rh (test code = ABO/Rh) O POS [facility] BANK [id number] 17:31:00 Test Item Value Reference Range Interpretation Comments Antibody Scrn (test Negative (10/02/21 code = Antibody Scrn) 11:31 AM) [facility]2022-02-21 17:31:00 Test Item Value Reference Range Interpretation Comments Glucose Lvl (test code = Glucose Lvl) 92 70-99 [facility]2022-02-21 17:31:00 Test Item Value Reference Range Interpretation Comments BUN (test code = BUN) 17 - [facility]2022-02-21 17:31:00 Test Item Value Reference Range Interpretation Comments Creatinine Lvl (test code = Creatinine 1.21 0.50-1.40 Lvl) [facility]2022-02-21 17:31:00 Test Item Value Reference Range Interpretation Comments Sodium Lvl (test code = Sodium Lvl) 140 135-145 [facility]2022-02-21 17:31:00 Test Item Value Reference Range Interpretation Comments Potassium Lvl (test code = Potassium 4.2 3.5-5.1 Lvl) [facility]2022-02-21 17:31:00 Test Item Value Reference Range Interpretation Comments Chloride Lvl (test code = Chloride Lvl) 108 95-109 [facility]2022-02-21 17:31:00 Test Item Value Reference Range Interpretation Comments CO2 (test code = CO2) 26 24-32 [facility]2022-02-21 17:31:00 Test Item Value Reference Range Interpretation Comments Calcium Lvl (test code = Calcium Lvl) 9.4 8.5-10.5 [facility]2022-02-21 17:31:00 Test Item Value Reference Range Interpretation Comments AGAP (test code = AGAP) 10.2 10.0-20.0 [facility]2022-02-21 17:31:00 Test Item Value Reference Range Interpretation Comments eGFR (test code = eGFR) 74 [facility]UE[facility]1275[facility]30-84 17:31:00 Test Item Value Reference Range Interpretation Comments PTT (test code = PTT) 28.1 s 22.9-35.8 [place] [address]-02-21 17:31:00 Test Item Value Reference Range Interpretation Comments PT (test code = PT) 11.8 s 12.0-14.7 [place] [address]-02-21 17:31:00 Test Item Value Reference Range Interpretation Comments INR (test code = INR) 0.87 1 0.85-1.17 [place] 199062-02-21 17:31:00 Test Item Value Reference Range Interpretation Comments WBC (test code = WBC) 5.4 3.7-10.4 [place] 199062-02-21 17:31:00 Test Item Value Reference Range Interpretation Comments RBC (test code = RBC) 4.90 4.70-6.10 [place] 199062-02-21 17:31:00 Test Item Value Reference Range Interpretation Comments Hgb (test code = Hgb) 13.7 14.0-18.0 [place] [address]-02-21 17:31:00 Test Item Value Reference Range Interpretation Comments Hct (test code = Hct) 42.0 42.0-54.0 [place] 199062-02-21 17:31:00 Test Item Value Reference Range Interpretation Comments MCV (test code = MCV) 85.6 80.0-94.0 [place] [address]-02-21 17:31:00 Test Item Value Reference Range Interpretation Comments MCH (test code = MCH) 27.9 pg 27.0-31.0 [place] 199062-02-21 17:31:00 Test Item Value Reference Range Interpretation Comments MCHC (test code = MCHC) 32.6 32.0-36.0 [place] 199062-02-21 17:31:00 Test Item Value Reference Range Interpretation Comments RDW (test code = RDW) 14.1 11.5-14.5 [place] 199062-02-21 17:31:00 Test Item Value Reference Range Interpretation Comments Platelet (test code = Platelet) 173 133-450 [place] 199062-02-21 17:31:00 Test Item Value Reference Range Interpretation Comments MPV (test code = MPV) 10.1 7.4-10.4 [place] 199062-02-21 17:31:00 Test Item Value Reference Range Interpretation Comments Segs (test code = Segs) 54.1 45.0-75.0 [place] 199062-02-21 17:31:00 Test Item Value Reference Range Interpretation Comments Lymphocytes (test code = Lymphocytes) 30.9 20.0-40.0 [place] 199062-02-21 17:31:00 Test Item Value Reference Range Interpretation Comments Monocytes (test code = Monocytes) 6.7 2.0-12.0 [place] 199062-02-21 17:31:00 Test Item Value Reference Range Interpretation Comments Eosinophils (test code = 7.7 See_Comment [A utomated message] The Eosinophils) system which ge nerated this result tra nsmitted reference range : <=4.0. The reference r caleb was not used to int erpret this result as normal/abnormal . [place] [address]-02-21 17:31:00 Test Item Value Reference Range Interpretation Comments Basophils (test code = 0.6 See_Comment [Aut omated message] The Basophils) system which ge nerated this result tra nsmitted reference range : <=1.0. The reference r caleb was not used to int erpret this result as normal/abnormal . [place] 199062-02-21 17:31:00 Test Item Value Reference Range Interpretation Comments Neutrophils # (test code = Neutrophils 2.9 1.5-8.1 #) [place] 199062-02-21 17:31:00 Test Item Value Reference Range Interpretation Comments Lymphocytes # (test code = Lymphocytes 1.7 1.0-5.5 #) [place] [address]-02-21 17:31:00 Test Item Value Reference Range Interpretation Comments Monocytes # (test code 0.4 See_Comment [Aut omated message] The = Monocytes #) system which generated this result tra nsmitted reference range : <=0.8. The reference r caleb was not used to int erpret this result as normal/abnormal . [place] 199062-02-21 17:31:00 Test Item Value Reference Range Interpretation Comments Eosinophils # (test code 0.4 See_Comment [A utomated message] The = Eosinophils #) system wh h generated this result tra nsmitted reference range : <=0.5. The reference r caleb was not used to int erpret this result as normal/abnormal . [facility]QyccqauWBEHMYTIQK3229-57-73 17:31:00 Test Item Value Reference Range Interpretation Comments Coronavirus (COVID-19) Not Detected (10/02/21 LIZBETH (test code = 11:31 AM) Coronavirus (COVID-19) LIZBETH) [facility] [id number] 17:31:00 Test Item Value Reference Range Interpretation Comments Hgb A1C (test code = Hgb A1C) 5.7 [facility]DxewzhqHBSLOPLDHS1121-62-24 07:37:00 Test Item Value Reference Range Interpretation Comments Sed Rate (test code = 2 See_Comment [Auto mated message] The Sed Rate) system which ge nerated this result transmit leydi reference range : <=15. The reference range was not used to interpr et this result as krishna l/abnormal. [facility]8807[facility]50-84 07:37:00 Test Item Value Reference Range Interpretation Comments C-REACTIVE PROTEIN (test code = 8.4 C-REACTIVE PROTEIN) [facility]AdqoepeSDGIHAPLNM2940-96-39 07:37:00 Test Item Value Reference Range Interpretation Comments Sed Rate (test code = 2 See_Comment [Auto mated message] The Sed Rate) system which ge nerated this result transmit leydi reference range : <=15. The reference range was not used to interpr et this result as krishna l/abnormal. [facility] HospitalYutouogUAOELFIBRY4480-99-74 07:37:00 Test Item Value Reference Range Interpretation Comments C-REACTIVE PROTEIN (test code = 8.4 C-REACTIVE PROTEIN) [facility]2021-09-30 01:10:00 Test Item Value Reference Range Interpretation Comments Glucose Lvl (test code = Glucose Lvl) 115 70-99 [facility]2021-09-30 01:10:00 Test Item Value Reference Range Interpretation Comments BUN (test code = BUN) 13 7-22 [facility]2021-09-30 01:10:00 Test Item Value Reference Range Interpretation Comments Creatinine Lvl (test code = Creatinine 1.21 0.50-1.40 Lvl) [facility]2021-09-30 01:10:00 Test Item Value Reference Range Interpretation Comments Sodium Lvl (test code = Sodium Lvl) 141 135-145 [place] 722561-09-30 01:10:00 Test Item Value Reference Range Interpretation Comments Potassium Lvl (test code = Potassium 3.8 3.5-5.1 Lvl) [place] 722561-09-30 01:10:00 Test Item Value Reference Range Interpretation Comments Chloride Lvl (test code = Chloride Lvl) 110 95-109 [place] 722561-09-30 01:10:00 Test Item Value Reference Range Interpretation Comments CO2 (test code = CO2) 25 24-32 [place] 722561-09-30 01:10:00 Test Item Value Reference Range Interpretation Comments Calcium Lvl (test code = Calcium Lvl) 9.1 8.5-10.5 [place] 722561-09-30 01:10:00 Test Item Value Reference Range Interpretation Comments AGAP (test code = AGAP) 9.8 10.0-20.0 [place] 722561-09-30 01:10:00 Test Item Value Reference Range Interpretation Comments eGFR (test code = eGFR) 74 [place] 199061-09-30 01:10:00 Test Item Value Reference Range Interpretation Comments WBC X 10x3 (test code = WBC X 10x3) 5.9 3.7-10.4 [place] 199061-09-30 01:10:00 Test Item Value Reference Range Interpretation Comments RBC X 10x6 (test code = RBC X 10x6) 4.92 4.70-6.10 [place] 199061-09-30 01:10:00 Test Item Value Reference Range Interpretation Comments Hgb (test code = Hgb) 13.8 14.0-18.0 [place] 199061-09-30 01:10:00 Test Item Value Reference Range Interpretation Comments Hct (test code = Hct) 41.8 42.0-54.0 [place] 199061-09-30 01:10:00 Test Item Value Reference Range Interpretation Comments MCV (test code = MCV) 84.9 80.0-94.0 [place] 199061-09-30 01:10:00 Test Item Value Reference Range Interpretation Comments MCH (test code = MCH) 28.0 pg 27.0-31.0 [place] 199061-09-30 01:10:00 Test Item Value Reference Range Interpretation Comments MCHC (test code = MCHC) 33.0 32.0-36.0 [place] 199061-09-30 01:10:00 Test Item Value Reference Range Interpretation Comments RDW (test code = RDW) 14.0 11.5-14.5 [place] 199061-09-30 01:10:00 Test Item Value Reference Range Interpretation Comments Platelet (test code = Platelet) 171 133-450 [place] 199061-09-30 01:10:00 Test Item Value Reference Range Interpretation Comments MPV (test code = MPV) 8.8 7.4-10.4 [place] 199061-09-30 01:10:00 Test Item Value Reference Range Interpretation Comments Segs (test code = Segs) 42.2 45.0-75.0 [place] 199061-09-30 01:10:00 Test Item Value Reference Range Interpretation Comments Lymphocytes (test code = Lymphocytes) 37.9 20.0-40.0 [place] 199061-09-30 01:10:00 Test Item Value Reference Range Interpretation Comments Monocytes (test code = Monocytes) 7.0 2.0-12.0 [place] 199061-09-30 01:10:00 Test Item Value Reference Range Interpretation Comments Eosinophils (test code = 11.6 See_Comment [A utomated message] The Eosinophils) system which ge nerated this result tra nsmitted reference range : <=4.0. The reference r caleb was not used to int erpret this result as normal/abnormal . [place] 199061-09-30 01:10:00 Test Item Value Reference Range Interpretation Comments Basophils (test code = 1.3 See_Comment [Aut omated message] The Basophils) system which ge nerated this result tra nsmitted reference range : <=1.0. The reference r caleb was not used to int erpret this result as normal/abnormal . [place] 199061-09-30 01:10:00 Test Item Value Reference Range Interpretation Comments Neutrophils # (test code = Neutrophils 2.5 1.5-8.1 #) [facility] TexasUsjetooQEEOCUHXAI8512-03-74 01:10:00 Test Item Value Reference Range Interpretation Comments Lymphocytes # (test code = Lymphocytes 2.2 1.0-5.5 #) [place] [address]061-09-30 01:10:00 Test Item Value Reference Range Interpretation Comments Monocytes # (test code 0.4 See_Comment [Aut omated message] The = Monocytes #) system which generated this result tra nsmitted reference range : <=0.8. The reference r caleb was not used to int erpret this result as normal/abnormal . [place] 199061-09-30 01:10:00 Test Item Value Reference Range Interpretation Comments Eosinophils # (test code 0.7 See_Comment [A utomated message] The = Eosinophils #) system whic h generated this result tra nsmitted reference range : <=0.5. The reference r caleb was not used to int erpret this result as normal/abnormal . [place] 199061-09-30 01:10:00 Test Item Value Reference Range Interpretation Comments Basophils # (test code 0.1 See_Comment [Aut omated message] The = Basophils #) system which generated this result tra nsmitted reference range : <=0.2. The reference r caleb was not used to int erpret this result as normal/abnormal . [place] 722561-09-30 01:10:00 Test Item Value Reference Range Interpretation Comments Glucose Lvl (test code = Glucose Lvl) 115 70-99 [place] 722561-09-30 01:10:00 Test Item Value Reference Range Interpretation Comments BUN (test code = BUN) 13 7-22 [place] 722561-09-30 01:10:00 Test Item Value Reference Range Interpretation Comments Creatinine Lvl (test code = Creatinine 1.21 0.50-1.40 Lvl) [place] 722561-09-30 01:10:00 Test Item Value Reference Range Interpretation Comments Sodium Lvl (test code = Sodium Lvl) 141 135-145 [place] 722561-09-30 01:10:00 Test Item Value Reference Range Interpretation Comments Potassium Lvl (test code = Potassium 3.8 3.5-5.1 Lvl) [place] 722561-09-30 01:10:00 Test Item Value Reference Range Interpretation Comments Chloride Lvl (test code = Chloride Lvl) 110 95-109 [place] 722561-09-30 01:10:00 Test Item Value Reference Range Interpretation Comments CO2 (test code = CO2) 25 24-32 [place] 722561-09-30 01:10:00 Test Item Value Reference Range Interpretation Comments Calcium Lvl (test code = Calcium Lvl) 9.1 8.5-10.5 [place] 722561-09-30 01:10:00 Test Item Value Reference Range Interpretation Comments AGAP (test code = AGAP) 9.8 10.0-20.0 [place] 722561-09-30 01:10:00 Test Item Value Reference Range Interpretation Comments eGFR (test code = eGFR) 74 [place] 199061-09-30 01:10:00 Test Item Value Reference Range Interpretation Comments WBC X 10x3 (test code = WBC X 10x3) 5.9 3.7-10.4 [place] 199061-09-30 01:10:00 Test Item Value Reference Range Interpretation Comments RBC X 10x6 (test code = RBC X 10x6) 4.92 4.70-6.10 [place] 199061-09-30 01:10:00 Test Item Value Reference Range Interpretation Comments Hgb (test code = Hgb) 13.8 14.0-18.0 [place] 199061-09-30 01:10:00 Test Item Value Reference Range Interpretation Comments Hct (test code = Hct) 41.8 42.0-54.0 [place] 199061-09-30 01:10:00 Test Item Value Reference Range Interpretation Comments MCV (test code = MCV) 84.9 80.0-94.0 [place] 199061-09-30 01:10:00 Test Item Value Reference Range Interpretation Comments MCH (test code = MCH) 28.0 pg 27.0-31.0 [place] 199061-09-30 01:10:00 Test Item Value Reference Range Interpretation Comments MCHC (test code = MCHC) 33.0 32.0-36.0 [place] 199061-09-30 01:10:00 Test Item Value Reference Range Interpretation Comments RDW (test code = RDW) 14.0 11.5-14.5 [place] 199061-09-30 01:10:00 Test Item Value Reference Range Interpretation Comments Platelet (test code = Platelet) 171 133-450 [place] 199061-09-30 01:10:00 Test Item Value Reference Range Interpretation Comments MPV (test code = MPV) 8.8 7.4-10.4 [place] 199061-09-30 01:10:00 Test Item Value Reference Range Interpretation Comments Segs (test code = Segs) 42.2 45.0-75.0 [place] 199061-09-30 01:10:00 Test Item Value Reference Range Interpretation Comments Lymphocytes (test code = Lymphocytes) 37.9 20.0-40.0 [place] 199061-09-30 01:10:00 Test Item Value Reference Range Interpretation Comments Monocytes (test code = Monocytes) 7.0 2.0-12.0 [place] 199061-09-30 01:10:00 Test Item Value Reference Range Interpretation Comments Eosinophils (test code = 11.6 See_Comment [A utomated message] The Eosinophils) system which ge nerated this result tra nsmitted reference range : <=4.0. The reference r caleb was not used to int erpret this result as normal/abnormal . [place] 199061-09-30 01:10:00 Test Item Value Reference Range Interpretation Comments Basophils (test code = 1.3 See_Comment [Aut omated message] The Basophils) system which ge nerated this result tra nsmitted reference range : <=1.0. The reference r caleb was not used to int erpret this result as normal/abnormal . [place] 199061-09-30 01:10:00 Test Item Value Reference Range Interpretation Comments Neutrophils # (test code = Neutrophils 2.5 1.5-8.1 #) [place] 199061-09-30 01:10:00 Test Item Value Reference Range Interpretation Comments Lymphocytes # (test code = Lymphocytes 2.2 1.0-5.5 #) [place] 199061-09-30 01:10:00 Test Item Value Reference Range Interpretation Comments Monocytes # (test code 0.4 See_Comment [Aut omated message] The = Monocytes #) system which generated this result tra nsmitted reference range : <=0.8. The reference r caleb was not used to int erpret this result as normal/abnormal . [facility] TexasMnaqfdiENENDARRLS6488-01-48 01:10:00 Test Item Value Reference Range Interpretation Comments Eosinophils # (test code 0.7 See_Comment [A utomated message] The = Eosinophils #) system whic h generated this result tra nsmitted reference range : <=0.5. The reference r caleb was not used to int erpret this result as normal/abnormal . [facility] TexasUvefsmsPAHMTGLJGJ0431-63-18 01:10:00 Test Item Value Reference Range Interpretation Comments Basophils # (test code 0.1 See_Comment [Aut omated message] The = Basophils #) system which generated this result tra nsmitted reference range : <=0.2. The reference r caleb was not used to int erpret this result as normal/abnormal . [facility]2018-11-27 18:20:00 Test Item Value Reference Range Interpretation Comments eGFR (test code = eGFR) 90 [facility]2018-11-27 18:20:00 Test Item Value Reference Range Interpretation Comments AGAP (test code = AGAP) 4.2 10.0-20.0 [facility]2018-11-27 18:20:00 Test Item Value Reference Range Interpretation Comments Calcium Lvl (test code = Calcium Lvl) 8.6 8.5-10.5 [facility]2018-11-27 18:20:00 Test Item Value Reference Range Interpretation Comments CO2 (test code = CO2) 30 24-32 [facility]2018-11-27 18:20:00 Test Item Value Reference Range Interpretation Comments Chloride Lvl (test code = Chloride Lvl) 109 95-109 [facility]2018-11-27 18:20:00 Test Item Value Reference Range Interpretation Comments Potassium Lvl (test code = Potassium 4.2 3.5-5.1 Lvl) [facility]2018-11-27 18:20:00 Test Item Value Reference Range Interpretation Comments Sodium Lvl (test code = Sodium Lvl) 139 135-145 [facility]2018-11-27 18:20:00 Test Item Value Reference Range Interpretation Comments Glucose Lvl (test code = Glucose Lvl) 111 70-99 [facility]2018-11-27 18:20:00 Test Item Value Reference Range Interpretation Comments BUN (test code = BUN) 18 - [facility]2018-11-27 18:20:00 Test Item Value Reference Range Interpretation Comments Creatinine Lvl (test code = Creatinine 1.18 0.50-1.40 Lvl) [facility]2018-11-27 18:20:00 Test Item Value Reference Range Interpretation Comments eGFR (test code = eGFR) 90 [facility]2018-11-27 18:20:00 Test Item Value Reference Range Interpretation Comments AGAP (test code = AGAP) 4.2 10.0-20.0 [facility]2018-11-27 18:20:00 Test Item Value Reference Range Interpretation Comments Calcium Lvl (test code = Calcium Lvl) 8.6 8.5-10.5 [facility]2018-11-27 18:20:00 Test Item Value Reference Range Interpretation Comments CO2 (test code = CO2) 30 24-32 [facility]2018-11-27 18:20:00 Test Item Value Reference Range Interpretation Comments Chloride Lvl (test code = Chloride Lvl) 109 95-109 [facility]2018-11-27 18:20:00 Test Item Value Reference Range Interpretation Comments Potassium Lvl (test code = Potassium 4.2 3.5-5.1 Lvl) [facility]2018-11-27 18:20:00 Test Item Value Reference Range Interpretation Comments Sodium Lvl (test code = Sodium Lvl) 139 135-145 [facility]2018-11-27 18:20:00 Test Item Value Reference Range Interpretation Comments Glucose Lvl (test code = Glucose Lvl) 111 70-99 [facility]2018-11-27 18:20:00 Test Item Value Reference Range Interpretation Comments BUN (test code = BUN) 18 - [facility]2018-11-27 18:20:00 Test Item Value Reference Range Interpretation Comments Creatinine Lvl (test code = Creatinine 1.18 0.50-1.40 Lvl) [facility][U] XRAY ELBOW 2 VWS RIGHT [id number] 15:57:00Images acquired, not reported on this accession number.[facility][U] XRAY WRIST MIN 3 VWS RIGHT [id number] 15:57:00Images acquired, not reported on this accession number.[facility] Notes Date/Time Note Provider Source 2022-09-20 EXAM: CT TEMPORAL BONE WITHOUT CONTRAST MARCIA Cedeño 13:55:00-00:00 DATE: 09/20/2022 INDICATION: - G96.01 [...] bone. 2022-05-19 EXAM: XR CHEST 1 VIEW [facility] 00:44:00-00:00 DATE: 05/19/2022 0:00 Center INDICATION: - inc O2 requriements COMPARISON: Chest x-ray dated 05/18/2022 TECHNIQUE: AP chest, portable radiograph IMPRESSION: 1. Cardiomediastinal silhouette is normal in siz e and contour. 2. Lung volumes are low comp ared to prior study. No parenchymal consolidation. No pleural effusion. No perceptible pneumothorax. 3. No acute osseous abnormality. 4. Right side PUMP ERECTOR shunt tube superimposing over the right side of the neck and chest. 2022-05-18 EXAM: CTA CHEST WITH CONTRAST [facility] 21:20:00-00:00 DATE: 05/18/2022 20:21 Center INDICATION: diaphoresis, tahcycardia, COMPARISON: None TECHNIQUE: Volumetric CT of the chest is acquired during pulmonary arterial phase following intravenous administration of contrast. Axial, sagittal, coronal, and oblique MIP reconstructions are created at the acquisition workstation. FINDINGS: Aerospace Engineer: Noncontributory. Lines and tubes: PUMP ERECTOR shunt co urses along the anterior right [...] EXAM: CT ABDOMEN AND PELVIS WITH CONTRAST [facility] 21:20:00-00:00 DATE: 05/18/2022 20:21 Center INDICATION: - [...] mSv COMPLICATIONS: None FINDINGS: Lines and tubes: PUMP ERECTOR shunt ca theter extends to the right [...] No CSF-navneet at the tip of the PUMP ERECTOR shunt catheter. Lymph nodes: Reactive peripo rtal [...] 3. No intraperitoneal collections. No CSFoma at PUMP ERECTOR shunt tip. 4. Too small to characterize hepatic hypodensity . 5. 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 6. Please see concurrent [facility] report for more details of thoracic findings. 2022-05-18 EXAM: CT HEAD WITHOUT CONTRAST [facility] 21:20:00-00:00 DATE: 05/18/2022 20:21 Center [...] ity. 2022-05-18 EXAM: XR CHEST 1 VIEW [facility] 15:45:01-00:00 DATE: 05/18/2022 15:19 Center INDICATION: - [...] EPIDURAL BLOOD PATCH WITH FLUO ROSCOPIC GUIDANCE [facility] 12:03:37-00:00 DATE: 05/18/2022 14:36 Center INDICATION: '-blood [...] EPIDURAL BLOOD PATCH WITH FLUO ROSCOPIC GUIDANCE [facility] 09:00:00-00:00 DATE: 05/17/2022 16:48 Center INDICATION: 'Other- [...] Dr. Jamal Stephenson with neurosurgery nurse practitioner environmental journalist pager, and with neurosurgery resident Dr. Morales, [...] complaint. 2022-05-12 EXAM: MRI BRAIN WITHOUT CONTRAST [facility] 05:56:00-00:00 DATE: 05/12/2022 Center INDICATION: - headache. Outs debbie brain magnetic resonance imaging submitted for 2nd opinion. COMPARISON: Head CTs dated from 05/10/2021 to TECHNIQUE: Brain magnetic re sonance imaging performed at [facility] on 05/11/2022. IV contrast: None. FINDINGS: Artifact along the right fro ntoparietal region is observed secondary to extracranial PUMP ERECTOR shunt system. Redemonstrated right frontal approach ventriculostomy [...] Kelvin Pate MD On 10/26/2021 18:10:05; KENZIE [id number] 2021-10-18 EXAM: XR ABDOMEN 4 VIEWS RHODA Cedeño 11:56:35-00:00 DATE: 10/18/2021 11:55 SECURITY FLEX UTILITY OFFICER INDICATION: - R10.30 Lower abdominal pain, unspe [...] in appearance. A portion of a right-sided PUMP ERECTOR shunt catheter is visualized Bowel: Nonobstructive bowel gas pattern. No pneu matosis is seen. Free air: None Solid organs: No abnormal ma ss or organomegaly seen. No abnormal intra- abdominal calcifications are seen. Bones: No acute abnormalities. IMPRESSION: 1. Right-sided PUMP ERECTOR shunt cath eter in place looped upon itself in the right upper quadrant and terminating in the left upper quadrant. 2. Bowel gas pattern is nonobstructive. No free air is seen. 2021-10-08 EXAM: CT ABDOMEN AND PELVIS WITH CONTRAST [facility] 20:09:19-00:00 DATE: 10/08/2021 20:06 SECURITY FLEX UTILITY OFFICER Center INDICATION: - outside films/PUMP ERECTOR shunt displacemen t ADDITIONAL INFORMATION: None. COMPARISON: None. TECHNIQUE: Volumetric CT of the abdomen and pelvis acquired following the intravenous administration of contrast. Axial, coronal and sagittal images are provided. IV contrast: Refer to MAR/nuclear medical technologist docume ntation Enteric contrast: None. DLP (mGy-cm): Refer to MAR/nuclear medical technologist docum entation FINDINGS: Aerospace Engineer: Noncontributory. Lines, tubes and hardware: R ight sided PUMP ERECTOR shunt with the distal tip terminating in [...] in the region of the distal, malpositioned PUMP ERECTOR shunt in the right lower quadrant abdominal soft tissues with associated fluid miguel ection measuring approximately 8.2 x 5.4 x 3.9 c m (transverse, AP, CC). IMPRESSION: Malpositioned PUMP ERECTOR catheter wi th the distal tip in the right upper quadrant ventral abdominal soft tissues with associated fluid collection. 2021-10-08 Critical finding of new left frontal lobe hypoattenuation along the right frontal shunt catheter possibly dairy supplies sales representative of an infectious process was communicated to and acknowledged by Trenton Mcafdden at 10/08/2021 21:26 SECURITY FLEX UTILITY OFFICER by Armond Sultana MD. [facility] 20:09:12-00:00 EXAM: CT BRAIN WITHOUT CONTRAST Center DATE: 10/08/2021 20:07 SECURITY FLEX UTILITY OFFICER INDICATION: - outside films/PUMP ERECTOR shunt displacemen t COMPARISON: CT brain 10/04/2021. [...] evaluation. 2021-10-04 EXAM: CT BRAIN WITHOUT CONTRAST [facility] 08:34:12-00:00 DATE: 10/04/2021 Center INDICATION: ' - [...] transfrontal shunt catheter. 2021-10-03 Exam: Shunt series. [facility] ical 21:24:18-00:00 DATE: 10/03/2021. Center INDICATION: Evaluate [...] kinking. 2021-10-03 EXAM: CT BRAIN WITHOUT CONTRAST [facility] 08:36:56-00:00 DATE: 10/03/2021 0840 hours Cente r [...] 2021-05-11 EXAM: CT TEMPORAL BONE WITH CONTRAST [facility] 02:14:01-00:00 DATE: 05/11/2021 Center INDICATION: - Pt [...] thrombosis. 2021-05-10 EXAM: CT BRAIN WITHOUT CONTRAST [facility] 22:34:45-00:00 DATE: 05/10/2021 22:24 CDT Center INDICATION: [...]
--- NOTE | 2023-03-26 14:09 | ER ---
Nurse's Notes [facility] Name: Terry Akins Sr Age: 42 yrs Sex: Male : 1980 Arrival Date: 03/26/2023 Time: 13:33 Bed Treatment Private MD: John Vazquez Diagnosis: Chronic pain, not elsewhere classified;Neuralgia and neuritis, unspecified Presentation: 03/26 13:50 Chief complaint: Patient states: he had sx on 03/16/23, and had "a tube removed" form his ap3 ear. patient states he is having continued severe pain, and has been referred to pain management but hasn't been able to get in. patient states he called his provider who informed him to come to the ED for further evaluation. Coronavirus screen: At this time, the client does not indicate any symptoms associated with coronavirus-19. Ebola Screen: No symptoms or risks identified at this time. Initial Sepsis Screen: Does the patient meet any 2 criteria? No. Patient's initial sepsis screen is negative. Does the patient have a suspected source of infection? No. Patient's initial sepsis screen is negative. Risk Assessment: Do you want to hurt yourself or someone else? Patient reports no desire to harm self or others. Onset of symptoms was March 16, 2023. 13:50 Method Of Arrival: Ambulatory ap3 13:50 Acuity: SARITHA 3 ap3 Triage Assessment: 13:52 General: Appears uncomfortable, Behavior is cooperative. Pain: Complains of pain in ap3 left ear and left jaw Pain currently is 10 out of 10 on a pain scale. Neuro: Level of Consciousness is awake, alert, obeys commands, Oriented to person, place, time, situation. Cardiovascular: Patient's skin is warm and dry. Respiratory: Airway is patent Respiratory effort is even, unlabored, Respiratory pattern is regular, symmetrical. Historical: - Allergies: 13:52 No Known Allergies; ap3 - PMHx: 13:52 Hypertensive disorder; Migraine; ap3 - PSHx: 13:52 Appendectomy; carpal tunnel right; hernia; left hand tendonitis; Mastoid surgery; Nerve ap3 transplantion; shunt; - Immunization history:: Client reports receiving the 2nd dose of the Covid vaccine. - Social history:: Smoking status: Patient denies any tobacco usage or history of. Screenin:52 [facility] ED Fall Risk Assessment (Adult) History of falling in the last 3 months, ap3 including since admission No falls in past 3 months (0 pts). Abuse screen: Denies threats or abuse. Nutritional screening: No deficits noted. Tuberculosis screening: No symptoms or risk factors identified. Assessment: 13:53 Reassessment: see triage assessment. mb9 14:09 Reassessment: Entered room to answer pts call light. Pt upset and states "this medicine mb9 you all gave me isn't working. I need Dilaudid now. I need something now for this pain. I'm not leaving until this pain goes away. I want to speak to Dr. Whitt now. Or a doctor." VERONIQUE. Sabas, notified. 14:27 Reassessment: No changes from previously documented assessment. Patient and/or family mb9 updated on plan of care and expected duration. Pain level reassessed. Patient is alert, oriented x 3, equal unlabored respirations, skin warm/dry/pink. Vital Signs: 13:50 BP 151 / 113; Pulse 71; Resp 19; Temp 98.8; Pulse Ox 100% ; Weight 149.69 kg; Pain ap3 10/10; 14:02 BP 174 / 89; Pulse 74; Resp 18; Pulse Ox 98% on R/A; mb9 14:26 BP 160 / 87; Pulse 60; Resp 18; Pulse Ox 100% on R/A; mb9 13:50 Pain Scale: Adult ap3 ED Course: 13:34 Patient arrived in ED. rg4 13:34 John Vazquez DO is Private Physician. rg4 13:38 Jenn Obregon FNP-C is [facility]. snw 13:38 Kwame Ortiz MD is Attending Physician. snw 13:52 Triage completed. ap3 13:53 Ghislaine Arredondo, BRYN is Primary Nurse. mb9 13:53 Arm band placed on right wrist. ap3 13:53 Placed in gown. Bed in low position. Call light in reach. Side rails up X 1. Client mb9 placed on continuous cardiac and pulse oximetry monitoring. NIBP monitoring applied. 13:53 No provider procedures requiring assistance completed. mb9 14:08 John Vazquez DO is Referral Physician. snw 14:27 IV discontinued, intact, bleeding controlled, No redness/swelling at site. Pressure mb9 dressing applied. Administered Medications: 14:11 Drug: carBAMazepine PO 400 mg Route: PO; mb9 14:26 Follow up: Response: No adverse reaction mb9 14:11 Drug: Ketorolac IM 30 mg Route: IM; Site: left deltoid; mb9 14:26 Follow up: Response: No adverse reaction mb9 14:11 Drug: HYDROcodone-acetaminophen PO 5 mg-325 mg 1 tabs Route: PO; mb9 14:26 Follow up: Response: No adverse reaction mb9 Medication: 13:54 VIS not applicable for this client. mb9 Outcome: 14:09 Discharge ordered by MD. hemphill 14:27 Discharged to home ambulatory. mb9 14:27 Condition: stable 14:27 Discharge instructions given to patient, Instructed on discharge instructions, follow up and referral plans. Demonstrated understanding of instructions, follow-up care, medications, Prescriptions given X 2. 14:27 Patient left the ED. mb9 Signatures: Jenn Obregon, REJECTOR-C REJECTOR-Diane Manzo4 Lisa Fuller, RN RN ap3 Ghislaine Arredondo RN RN mb9
--- NOTE | 2023-03-26 14:09 | EDPHYS ---
Physician Documentation [facility] Name: Terry Akins Sr Age: 42 yrs Sex: Male : 1980 Arrival Date: 03/26/2023 Time: 13:33 Bed Treatment Private MD: Dannielle Vazquezh ED Physician Kwame Ortiz HPI: 03/26 14:29 This 42 yrs old Black Male presents to ER via Ambulatory with complaints of Facial pain.snw 14:29 Onset: The symptoms/episode began/occurred pt referred previously to pain management, snw had mastoidectomy in January. States severe pain since. The patient has experienced similar episodes in the past, chronically. Historical: - Allergies: 13:52 No Known Allergies; ap3 - PMHx: 13:52 Hypertensive disorder; Migraine; ap3 - PSHx: 13:52 Appendectomy; carpal tunnel right; hernia; left hand tendonitis; Mastoid surgery; Nerve ap3 transplantion; shunt; - Immunization history:: Client reports receiving the 2nd dose of the Covid vaccine. - Social history:: Smoking status: Patient denies any tobacco usage or history of. ROS: 14:26 Constitutional: Negative for fever, chills, and weight loss, Eyes: Negative for injury, snw pain, redness, and discharge, Neck: Negative for injury, pain, and swelling, Cardiovascular: Negative for chest pain, palpitations, and edema, Respiratory: Negative for shortness of breath, cough, wheezing, and pleuritic chest pain, Abdomen/GI: Negative for abdominal pain, nausea, vomiting, diarrhea, and constipation, Back: Negative for injury and pain, : Negative for injury, bleeding, discharge, and swelling, MS/Extremity: Negative for injury and deformity, Skin: Negative for injury, rash, and discoloration, Neuro: Negative for headache, weakness, numbness, tingling, and seizure, Psych: Negative for depression, anxiety, suicide ideation, homicidal ideation, and hallucinations. 14:26 ENT: Positive for ear pain, left facial pain . Exam: 14:23 Constitutional: This is a well developed, well nourished patient who is awake, alert, snw and in no acute distress. Neck: Trachea midline, no thyromegaly or masses palpated, and no cervical lymphadenopathy. Supple, full range of motion without nuchal rigidity, or vertebral point tenderness. No Meningismus. Chest/axilla: Normal chest wall appearance and motion. Nontender with no deformity. No lesions are appreciated. Cardiovascular: Regular rate and rhythm with a normal S1 and S2. No gallops, murmurs, or rubs. Normal PMI, no JVD. No pulse deficits. Respiratory: Lungs have equal breath sounds bilaterally, clear to auscultation and percussion. No rales, rhonchi or wheezes noted. No increased work of breathing, no retractions or nasal flaring. Abdomen/GI: Soft, non-tender, with normal bowel sounds. No distension or tympany. No guarding or rebound. No evidence of tenderness throughout. Back: No spinal tenderness. No costovertebral tenderness. Full range of motion. Skin: Warm, dry with normal turgor. Normal color with no rashes, no lesions, and no evidence of cellulitis. MS/ Extremity: Pulses equal, no cyanosis. Neurovascular intact. Full, normal range of motion. Neuro: Awake and alert, GCS 15, oriented to person, place, time, and situation. Cranial nerves II-XII grossly intact. Motor strength 5/5 in all extremities. Sensory grossly intact. Cerebellar exam normal. Normal gait. Psych: Awake, alert, with orientation to person, place and time. Behavior, mood, and affect are within normal limits. 14:23 Eyes: Pupils equal round and reactive to light, extra-ocular motions intact. Lids and lashes normal. Conjunctiva and sclera are non-icteric and not injected. Cornea within normal limits. Periorbital areas with no swelling, redness, or edema. 14:23 Head/face: Exam is negative for 14:23 Eyes: Periorbital structures: appear normal, Pupils: no acute changes, Extraocular movements: no acute changes. 14:23 ENT: TM's: are normal, Nose: is normal, Mouth: is normal, Voice: is normal. Vital Signs: 13:50 BP 151 / 113; Pulse 71; Resp 19; Temp 98.8; Pulse Ox 100% ; Weight 149.69 kg; Pain ap3 10/10; 14:02 BP 174 / 89; Pulse 74; Resp 18; Pulse Ox 98% on R/A; mb9 14:26 BP 160 / 87; Pulse 60; Resp 18; Pulse Ox 100% on R/A; mb9 13:50 Pain Scale: Adult ap3 MDM: 14:04 Patient medically screened. snw 14:27 Differential diagnosis: pain management, pt states T#3 and Dilaudid help pain and he snw cannot see pain mgmt until 04/17/23. Pt has PCP but was directed to ED. Data reviewed: vital signs, nurses notes. I considered the following discharge prescriptions or medication management in the emergency department Medications were administered in the Emergency Department. See MAR. Counseling: I had a detailed discussion with the patient and/or guardian regarding: the historical points, exam findings, and any diagnostic results supporting the discharge/admit diagnosis, the presence of at least one elevated blood pressure reading (>120/80) during this emergency department visit, the need for outpatient follow up, for definitive care. Special discussion: I have referred the patient to see his PCP for further evaluation of high blood pressure. Based on the history and exam findings, there is no indication for further emergent testing or inpatient evaluation. I discussed with the patient/guardian the need to see the spray painter helper for further evaluation of the symptoms. 14:34 ED course: discussed with patient that he cannot come to the ED for diluadid regularly snw prior to pain management appt. Administered Medications: 14:11 Drug: carBAMazepine PO 400 mg Route: PO; mb9 14:26 Follow up: Response: No adverse reaction mb9 14:11 Drug: Ketorolac IM 30 mg Route: IM; Site: left deltoid; mb9 14:26 Follow up: Response: No adverse reaction mb9 14:11 Drug: HYDROcodone-acetaminophen PO 5 mg-325 mg 1 tabs Route: PO; mb9 14:26 Follow up: Response: No adverse reaction mb9 Disposition: 16:31 Co-signature as Attending Physician, Kwame Ortiz MD I reviewed the patient's care rn provided by the Advanced Practice Provider and agree with the diagnosis and treatment plan. Disposition Summary: 03/26/23 14:09 Discharge Ordered Location: Home snw Condition: Stable snw Diagnosis - Chronic pain, not elsewhere classified snw - Neuralgia and neuritis, unspecified snw Followup: snw - With: Emergency Department - When: As needed - Reason: Worsening of condition Followup: snw - With: John Vazquez, DO - When: Tomorrow - Reason: Recheck today's complaints, Continuance of care, Re-evaluation by your physician Discharge Instructions: - Discharge Summary Sheet snw - Chronic Pain, Adult snw - Neuropathic Pain snw - How to Use Cold Therapy snw - Heat Therapy snw Forms: - Medication Reconciliation Form snw - Thank You Letter snw - Antibiotic Education snw - Prescription Opioid Use snw - Patient Portal Instructions snw - Leadership Thank You Letter snw Prescriptions: - Neurontin 300 mg Oral Capsule - take 1 capsule by ORAL route every 8 hours; 30 capsule; Refills: 0, Product snw Selection Permitted - Tegretol XR 200 mg Oral Tablet Sustained Release 12 hr - take 1 tablet by ORAL route every 12 hours; 60 tablet; Refills: 0, Product snw Selection Permitted Signatures: Jenn Obregon, WAREHOUSE INCENTIVE SELECTOR-C WAREHOUSE INCENTIVE SELECTOR-Csnw Kwame Ortiz MD MD rn Prokisch, Amanda, RN RN ap3 Ghislaine Arredondo RN RN mb9
[2023-03-26] MEDS ORDERED: HYDROCODONE/APAP 5/325 MG TAB ONE (14:17)
[2023-03-26] MEDS ORDERED: KETOROLAC 30 MG/ML INJ ONE (14:18)
[2023-03-26] MEDS ORDERED: carBAMazepine 200 MG TAB ONE (14:18)
[2023-03-26 14:32] VITALS: TEMP 98.8
[2023-03-26 14:35] VITALS: BP 160/87; O2SAT 100
== END 2023-03-26 14:27 | disposition home or self-care (01) ==
LOC: ER 13:33
DX: G89.29 Other chronic pain (principal); M79.2 Neuralgia and neuritis, unspecified; I10 Essential (primary) hypertension
CPT/HCPCS: 96372; 99284

== ENCOUNTER 2023-04-11 09:21 | Emergency (ER) | payer OTHER ==
--- OUTSIDE RECORDS SUMMARY | 2023-04-11 09:34 | XMS REPORT | Continuity of Care Document ---
:1980 Author Organization [facility] t Address [address] [place] [address] Care Team Providers Name Role Phone Geovanna Foley DO Primary Care Physician John Vazquez Attending Clinician Unavailable GERONIMO MICHELLE Attending Clinician Unavailable NOAH OSORIO Attending Clinician Unavailable JUNIOR KUMAR Attending Clinician Unavailable MANASA CULLEN Attending Clinician Unavailable NANETTE HONEYCUTT Attending Clinician Unavailable MAGNOLIA MONTES DE OCA Attending Clinician Unavailable Magnolia Nguyen Attending Clinician MANASA CULLEN Attending Clinician Unavailable CRIS JAIMES Attending Clinician Unavailable Kelly LOJA, Karen Trent Attending Clinician Darshan LOJA, Julian Attending Clinician César LOJA, Aidan Attending Clinician Cecil LOJA, Jimmy Amato Attending Clinician [phone] ANU ORTIZ Attending Clinician Unavailable NOAH OSORIO Attending Clinician Unavailable SONIA ROBERTS Attending Clinician Unavailable Marcella CLEMENTE, Rae Attending Clinician Unavailable Gonzalo OTT, Layne Attending Clinician Unavailable Geronimo Michelle MD Attending Clinician Dorothea Delgadillo MA Attending Clinician Unavailable Amelia Cameron MA Attending Clinician Unavailable Brii Howard MA Attending Clinician Unavailable Doctor Unassigned, [place] Attending Clinician Unavailable 1, [employer] [...] Unavailable GEOVANNA FOLEY D.O. Attending Clinician Unavailable MAGNOLIA MONTES DE OCA Admitting Clinician Unavailable MANASA CULLEN Admitting Clinician Unavailable JULIAN SEXTON Admitting Clinician Unavailable NOAH OSORIO Admitting Clinician Unavailable Blaire PADRON Admitting Clinician Unavailable Payers Payer Name Policy Type Policy Number Effective Date Expiration Date S ource [facility] MEDICAID [id number] 2019 [place] 00:00:00 [facility] [id number] 2019 HEALTH CHOICE 00:00:00 [facility] [id number] 2018 [facility] 00:00:00 - [facility] [id number] 2018 [facility] CHO[facility] 00:00:00 - [facility] [id number] 2018 [facility] CHOICE 00:00:00 - [facility] [id number] 2018 [facility] HE[facility] CHOICE 00:00:00 - [facility] [id number] 2018 [facility] CHO[facility] 00:00:00 - [facility] [id number] 2018 [facility] 00:00:00 - [facility] [id number] 2018 [facility] 00:00:00 - [facility] Problems Condition Condition Condition Status Onset Resolution Last Treating Co mments Source Name Details Category Date Date Treatment Clinician Date CRANIAL CRANIAL Diagnosis Active 2023-02-04 Memoria CEREBROSPI CEREBROSPI 02-01 13:10:00 l NAL FLUID NAL FLUID 00:00: Herm faina LEAK, LEAK, 00 SPONTA SPONTA Active 02/01/2023 [facility] Intractabl Intractabl Disease Active M ethodi e vomiting e vomiting 5-28 st with with 00:00: Hospita nausea nausea 00 l Hematemesi Hematemesi Disease Active M ethodi s with s with 5-28 st nausea nausea 00:00: Hospita 00 l Hypertensi Hypertensi Disease Active M ethodi ve urgency ve urgency 5- st 00:00: Hospita 00 l Acute Acute Disease Active Methodi intractabl intractabl 5-28 st e headache e headache 00:00: Ho spita 00 l BMI BMI Disease Active 2021-08 UT 40.0-44.9, 40.0-44.9, 0-07 He alth adult adult 00:00: 00 SPINAL SPINAL Diagnosis Active 2021-082022-05-18 M emoria HEADACHE HEADACHE 0-05 08:44:00 l Active 12:00: [place] 05/16/2022 00 [facility] SENY BY SUYAPA BY Diagnosis Active 2021-082022-05-16 Memoria PHYISICIAN PHYISICIAN 0-05 19:45:00 l Active 12:00: [place] 05/16/2022 00 [facility] L L Diagnosis Active 2021-082022-05-12 Mem oria MASTOIDITI MASTOIDITI 0- 05:56:00 l S S Active 00:00: [place] 05/12/2022 00 [facility] UNSPECIFIE UNSPECIFI Diagnosis Active 2021-10-26 Memoria D ED 3-15 18:20:00 l ABDOMINAL ABDOMINAL 00:00: Herm faina PAIN PAIN 00 Active 10/24/2021 [facility] DISPLACED Diagnosis Active 2021-10-08 Memoria PRINCIPAL TECHNICAL SPECIALIST SHUNT DISPLACED 10-08 19:39:00 l PRINCIPAL TECHNICAL SPECIALIST SHUNT 00:00: [place] Active 00 10/08/2021 [facility] PRINCIPAL TECHNICAL SPECIALIST SHUNT PRINCIPAL TECHNICAL SPECIALIST SHUNT Diagnosis Active 2021-10-26 Memoria MALF MALF 10-08 18:20:00 l Active 00:00: [place] 10/08/2021 00 [facility] G96.00 G96.00 Diagnosis Active 2021-10-26 Me moria Active 09-28 18:20:00 l 09/28/2021 00:00: Sadi gresham [address] MD LOJA Diagnosis Active 2021-05-10 Mem oria REFERRAL/ REFERRAL/ 05-10 20:33:00 l FLUIDS FLUIDS 00:00: [place] LEAKING LEAKING 00 FROM EAR FROM EAR Active 05/10/2021 [facility] CSF CSF Disease Active UT otorrhea otorrhea 05-09 Health 00:00: 00 Syncope Syncope Disease Active 2017-08 Methodi [facility] 00:00: Hospita 00 l [id number] Non-season Problem Com mon al Spirit allergic - [facility] rhinitis, St unspecifie [facility] [id number] Mild Problem Common intermitte Spirit nt asthma - [facility] with [facility] allergic [facility] rhinitis, [facility] unspecifie Center d whether complicate d [id number] Depression Problem Co mmon with Spirit anxiety - [facility] [id number] Migraine Problem Comm on without Spirit aura and - [facility] without [facility] status [facility]rain[facility], not Center intractabl e [id number] Attention Problem Comm on deficit Spirit hyperactiv - [facility] combined Center type [id number] Primary Problem Comm on osteoarthr Spirit itis of - [facility] right knee [facility] [id number] Pain in Problem Common right knee [facility] [id number] Left Problem Common maxillary Spirit sinusitis - [facility] [id number] Hypertensi Problem Com mon on, Spirit unspecifie - [facility] d type [facility] [id number] GERD Problem Common without Spirit esophagiti - CHI s [facility] [id number] Tobacco Problem Commo n use Spirit disorder - [facility] [id number] Other Problem Common chronic Spirit pain - [facility] [id number] Mixed Problem Common hyperlipid Spirit emia - [facility] [id number] Decreased Problem Com mon hearing of Spirit left ear - [facility] [id number] Loss of Problem Common taste [facility] Lesion of Lesion of Problem 2019-01-26 Memoria ulnar ulnar 15:19:24 l nerve, nerve, [place] right right upper limb upper limb 01/26/2019 [place] Unspecifie Unspecifi Problem 2019-01-26 Memoria d ed 15:19:24 l osteoarthr osteoarthr He jose alfredo itis, itis, unspecifie unspecifie d site d site 01/26/2019 [place] Sleep Sleep Problem 2019-01-26 Memor luis apnea, apnea, 15:19:24 l unspecifie unspecifie He jose alfredo d d 01/26/2019 [place] Unspecifie Unspecifi Problem 2019-01-26 Memoria d asthma, ed asthma, 15:19:24 l uncomplica uncomplica He jose alfredo leydi leydi 01/26/2019 [place] Anxiety Anxiety Problem 2019-01-26 Me moria disorder, disorder, 15:19:24 l unspecifie unspecifie He jose alfredo d d 01/26/2019 [place] Gastro-eso Gastro-es Problem 2019-01-26 Memoria phageal ophageal 15:19:24 l reflux reflux [place] disease disease without without esophagiti esophagiti s s 01/26/2019 [place] Essential Problem 2019-01-26 Me moria (primary) Essential 15:19:24 l hypertensi (primary) Her jones on hypertensi on 01/26/2019 [place] Personal Personal Problem 2019-01-26 Memoria history of history of 15:19:24 l nicotine nicotine Sadi n dependence dependence 9 [place] Allergy Allergy Problem 2019-01-26 Me moria status to status to 15:19:24 l analgesic analgesic Herm faina agent agent status status 01/26/2019 [place] 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 Memoria (current) (current) 15:19:24 l use of use of [place] non-steroi non-steroi siddharth siddharth anti-infla anti-infla mmatories mmatories (NSAID) (NSAID) 01/26/2019 [place] Dependence Dependenc Problem 2019-01-26 Memoria on other e on other 15:19:24 l enabling enabling Sadi n machines machines and and devices devices 01/26/2019 [place] Arthrodesi Arthrodes Problem 2019-01-26 Memoria s status is status 15:19:24 l 01/26/2019 Sadi n [place] Cerebrospi Cerebrosp Problem Active 2022-09-23 Memoria nal fluid inal fluid 07:26:44 l leak leak [place] (disorder) (disorder) Active Problem 09/23/2022 [facility], RHODA Cedeño, RHODA Burr,[facility] Chest pain Chest Problem Active 2022-09-23 M andrzej (finding) pain 07:26:44 l (finding) [place] Active Problem 09/23/2022 [facility], RHODA Cedeño, RHODA Burr,[facility] Morbid Morbid Problem Active 2022-09-23 David katarzyna obesity obesity 07:26:44 l (disorder) (disorder) He jose alfredo Active Problem 09/23/2022 [facility], RHODA Cedeño, RHODA Burr,[facility] Rhabdomyol Rhabdomyo Problem Active 2022-09-23 Memoria ysis lysis 07:26:44 l (disorder) (disorder) He rmfaina Active Problem 09/23/2022 [facility], RHODA Cedeño, RHODA Burr,M H [place],[facility] Smoker Smoker Problem Active 2022-09-23 David katarzyna (finding) (finding) 07:26:44 l Active [place] Problem 09/23/2022 [facility], RHODA Cedeño, RHODA Burr,M [facility] MECH COMPL MEC Diagnosis Active 2021-10-26 Memoria OF COMPL OF 18:20:00 l VENTRICULA VENTRICULA He rmann R R INTRACRANI INTRACRANI AL S AL S Active [facility] R10.30 - R10.30 - Diagnosis Active 2021-10-26 Memoria LOWER LOWER 18:20:00 l ABDOMINAL ABDOMINAL Herm faina PAIN, PAIN, UNSPECIF [facility]NSPECIF [facility] R10.84 - R10.84 - Diagnosis Active 2022-01-10 Memoria GENERALIZE GENERALIZE 14:35:00 l D D [place] ABDOMINAL ABDOMINAL PAIN PAIN Active RHODA Burr Headache Headache Problem Active 2022-09-23 Memoria (finding) (finding) 07:26:44 l Active [place] Problem 09/23/2022 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 OTHER OTHER Diagnosis Active 2022-05-18 Mem oria REACTION REACTION 08:44:00 l TO SPINAL TO SPINAL Herm faina AND LUMBAR AND LUMBAR PUNC PUNC Active [facility] G96.01 - G96.01 - Diagnosis Active 2022-09-20 Memoria CRANIAL CRANIAL 13:51:00 l CEREBROSPI CEREBROSPI He rmann NAL FLUID NAL FLUID LE LE Active [facility] Cubital Cubital Problem Active UT tunnel tunnel [...] Active UT vomiting vomiting Physic i ans No known No known Disease Unive rs active active ity of problems problems [facility] Sprain of Sprain of Problem Resolve 2011-2022-05-21 2022-05-21 Memoria ligament ligament d -13 21:55:10 21:55:10 l of finger of finger 00:00: Anya eisenberg (disorder) (disorder) 00 Resolved 12/23/2011 Problem 05/21/2022 [facility], RHODA Cedeño, RHODA Burr,M [place] History of Past Illness Condition Condition Condition Status Onset Resolution Last Treating Co mments Source Name Details Category Date Date Treatment Clinician Date Headache, Headache, Problem 2021-082022-05-14 2022-05-14 Memoria unspecifie unspecifie 0-02 23:16:23 23:16:23 l d d 02:01: [place] 05/13/2022 00 05/14/2022 [facility] Presence Presence Problem 2021-082022-05-14 2022-05-14 Memoria of of 0-02 23:16:23 23:16:23 l cerebrospi cerebrospi 02:01: He jose alfredo nal fluid nal fluid 00 drainage drainage device device 05/13/2022 [facility] Carpal Carpal Problem 2017-082019-01-26 2019-01-26 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:19:24 15:19:24 l syndrome, syndrome, 04:59: Herm faina right right 41 upper limb upper limb 8 01/26/2019 [place] Obstructiv Obstructi Problem 2017-082019-01-11 2019-01-11 Mike bhakta sleep ve sleep - 11:08:48 11:08:48 l apnea apnea 05:23: [place] (adult) (adult) 17 (pediatric (pediatric ) ) 06/28/2018 01/11/2019 [place] Unspecifie Unspecifi Problem 2017-082018-12-03 2018-12-03 Mike d ed 0-11 14:53:30 14:53:30 l mononeurop mononeurop 04:28: He jose alfredo athy of athy of 42 right right upper limb upper limb 05/22/2018 12/03/2018 [place] Pain in Pain in Problem 2017-082018-12-03 2018-12-03 Mike arm, arm, 0-05 14:53:30 14:53:30 l unspecifie unspecifie 05:00: He jose alfredo clarke d 00 05/16/2018 12/03/2018 [place] Allergies, Adverse Reactions, Alerts Allergy Allergy Status Severity Reaction(s) Onset Inactive Treating Comm ents Source Name Type Date Date Clinician No Known No Known Active Memori a Medicati Medicati l on on [place] Allergie Allergie s s Acetamin drug Active Headache [facility] ophen allergy Physici TABS ans NO KNOWN Drug Active Univers ALLERGIE Class ity of S [facility] NO KNOWN Allergy Active [facility] Family History Family Member Diagnosis Comments Start Date Stop Date Source Other Diabetes [facility] natural son Family history of [facility] [...] [facility]OH [facility] Binge Gender identity [facility] Sexual orientation [facility] History of Social 2023-01-07 2023-01-[address] function 00:00:00 00:00:00 Hospital Tobacco use and 2023-01-06 2023-01-06 Smokeless tobacco Me thodist exposure 00:00:00 00:00:00 non-user Hospital Alcohol intake 2023-01-06 2023-01-06 Current non-drinker M ethodist 00:00:00 00:00:00 of alcohol Hospital (finding) Tobacco Comment 2022-11-14 2022-11-14 Pt quit few years CH I [facility] 00:00:00 00:00:00 ago [facility] Exposure to 2022-09-18 2022-09-28 Not sure [facility] SARS-CoV-2 (event) 00:00:00 14:46:00 Alcohol Comment 2021-10-18 2021-10-18 Ocassionally [facility] 00:00:00 00:00:00 Social History 2018-07-08 2018-07-08 [facility] 18:40:37 18:40:37 History of tobacco 2018-04-25 Cigarette Smoker [facility] use 00:00:00 [facility] Sex Assigned At [birth year] [facility] 00:00:00 00:00:00 [facility] Smoking Status Start Date Stop Date Source Tobacco smoking [employer] [facility] [employer] [place] consumption unknown Medical Bran ch Current Smoker 2022-06-22 00:00:00 [facility] nter Ex-smoker 2021-10-18 00:00:00 2021-10-18 [facility] 00:00:00 Medications Ordered Filled Start Stop Current Ordering Indication Dosage Frequency Signature Comments Components Source Medication Medication Date Date Medication? Clinician (SIG) Name Name HYDROcodone 2022- No 1{tbl} 1 tablet, Univers -acetaminop 03-27 Oral, ity of [facility] (NORCO) 01:30: 00:52 [place] 10-325 mg 00 :00 dose, On Medica l tablet 1 Tue Branch tablet 03/26/23 at 2030, DAKSHA iopamidol 2022- No [id number] 100mL 100 mL, Univers (ISOVUE 03-27 Intravenou ity o f 370-500 mL) 00:30: 00:30 s, ONCE, 1 [place] injection 00 :00 dose, On Medica l 100 mL Tue Branch 03/26/23 at 1930, Routine acetaminoph 2022- Yes [id number] 1{tbl} Take 1 U nivers en-codeine 03-26 tablet by ity of 300-30 mg 00:00: 04:59 mouth [place] tablet 00 :00 every 6 Medical (six) Branch hours as needed for Pain (scale 7-10) for up to 7 days. Indication s: acute pain ciprofloxac 2022- Yes [id number] 10[drp] Q.5D Administer UT in-dexameth 03-13 20452 10 drops He alth asone 00:00: 04:59 into the (Ciprodex) 00 :00 left ear otic in the suspension morning and 10 drops in the evening. Do all this for 7 days. acetaminoph 2022- Yes [id number] 1{tbl} Q6H Take 1 UT en-codeine 03-13 tablet by [facility] (Tylenol w/ 00:00: 04:59 mouth Codeine #3) 00 :00 every 6 300-30 MG (six) tablet hours if needed for severe pain for up to 5 days. amLODIPine 2022-0 Yes 5mg QD Take 5 mg UT (Norvasc) 5 7-11 by mouth 1 He alth MG tablet 00:00: (one) time 00 each day. lisinopriL 2022-0 Yes 40mg QD Take 1 Metho di (PRINIVIL) 5-30 tablet (40 st 40 mg 18:25: mg total) Hospita tablet 02 by mouth l daily. traMADoL 2022-0 Yes [id number] 50mg Q24H Take 1 Method i (ULTRAM) 50 5-30 tablet (50 st mg tablet 18:25: mg total) Hos yumiko 02 by mouth l daily as needed for moderate pain .acute pain. omeprazole 2022-0 Yes 40mg QD Take 1 Metho di (PriLOSEC) 5-[address] 40 MG 18:25: (40 mg Hospita capsule 02 total) by l mouth daily. dicyclomine 2022-0 Yes 20mg QD Take 1 Meth aubree [...] by mouth l daily. traMADoL 2023-0 Yes [id number] 50mg Q24H Take 1 Method i (ULTRAM) [...] by mouth l daily. traMADoL 2023-0 Yes [id number] 50mg Q24H Take 1 Method i (ULTRAM) [...] by mouth l daily. traMADoL 2023-0 Yes [id number] 50mg Q24H Take 1 Method i (ULTRAM) [...] by mouth l daily. traMADoL 2023-0 Yes [id number] 50mg Q24H Take 1 Method i (ULTRAM) [...] by mouth l daily. traMADoL 2023-0 Yes [id number] 50mg Q24H Take 1 Method i (ULTRAM) [...] by mouth l daily. traMADoL 2023-0 Yes [id number] 50mg Q24H Take 1 Method i (ULTRAM) [...] QD Take 1 Meth aubree (NORVASC) 5 01-08 tablet (5 st mg tablet 00:00: 04:59 mg total) Ho spita 00 :00 by mouth l daily for 30 days. amLODIPine 2022-0 2022- No 5mg QD Take 1 Meth aubree (NORVASC) 5 01-08 tablet (5 st mg tablet 00:00: 04:59 mg total) Ho spita 00 :00 by mouth l daily for 30 days. ciprofloxac 2022-0 2023- No 500mg Q.5D Take 1 Me thodi in (Cipro) 01-[address] 500 MG 00:00: 04:59 (500 mg Hospita tablet 00 :00 total) by l mouth 2 (two) times a day for 5 days. metroNIDAZO 2022-0 2023- No 500mg Q.08616415 Take 1 Methodi LE (FlagyL) 01-[id number] 500 MG 00:00: 04:59 3D (500 mg Hospita tablet 00 :00 total) by l mouth 3 (three) times a day for 5 days. ciprofloxac 2022-0 3- No 500mg Q.5D Take 1 Me thodi in (Cipro) 01-[address] 500 MG 00:00: 04:59 (500 mg Hospita tablet 00 :00 total) by l mouth 2 (two) times a day for 5 days. metroNIDAZO 3-0 2023- No 500mg Q.[id number] Take 1 Methodi LE (FlagyL) 01-[id number] 500 MG 00:00: 04:59 3D (500 mg Hospita tablet 00 :00 total) by l mouth 3 (three) times a day for 5 days. ciprofloxac 2022-0 2023- No 500mg Q.5D Take 1 Me thodi in (Cipro) 01-[address] 500 MG 00:00: 04:59 (500 mg Hospita tablet 00 :00 total) by l mouth 2 (two) times a day for 5 days. metroNIDAZO 2023-0 2023- No 500mg Q.61202539 Take 1 Methodi LE (FlagyL) 01-[id number] 500 MG 00:00: 04:59 3D [...] 5 days. metroNIDAZO 2023-0 2023- No 500mg Q.83990773 Take 1 Methodi LE (FlagyL) 01-[id number] 500 MG 00:00: 04:59 3D [...] 5 days. metroNIDAZO 2023-0 2023- No 500mg Q.86001707 Take 1 Methodi LE (FlagyL) 01-[id number] 500 MG 00:00: 04:59 3D [...] 5 days. metroNIDAZO 2023-0 2023- No 500mg Q.28919492 Take 1 Methodi LE (FlagyL) 01-[id number] 500 MG 00:00: 04:59 3D [...] for 5 days. metroNIDAZO 2022- No 500mg Q.08632203 Take 1 Methodi LE (FlagyL) 01-[id number] 500 MG 00:00: 04:59 3D (500 mg Hospita tablet 00 :00 total) by l mouth 3 (three) times a day for 5 days. butalbital- 2022- No 1{tbl} Q6H Take 1 M ethodi acetaminoph 01-[address] [facility] 00:00: 04:59 mouth Hospita (FIORICET) 00 :00 every 6 l 50-325-40 (six) mg per hours as tablet needed for headaches for up to 2 days. butalbital- 2022- No 1{tbl} Q6H Take 1 M ethodi acetaminoph 01-[address] en-caf 00:00: 04:59 mouth Hospita (FIORICET) 00 :00 every 6 l 50-325-40 (six) mg per hours as tablet needed for headaches for up to 2 days. butalbital- 2022- No 1{tbl} Q6H Take 1 M ethodi acetaminoph 01-[address] en-caf 00:00: 04:59 mouth Hospita (FIORICET) 00 :00 every 6 l 50-325-40 (six) mg per hours as tablet needed for headaches for up to 2 days. butalbital- 2022- No 1{tbl} Q6H Take 1 M ethodi acetaminoph 01-[address] en-caf 00:00: 04:59 mouth Hospita (FIORICET) 00 :00 every 6 l 50-325-40 (six) mg per hours as tablet needed for headaches for up to 2 days. butalbital- 2022- No 1{tbl} Q6H Take 1 M ethodi acetaminoph 01-07- tablet by st en-caf 00:00: 04:59 mouth Hospita (FIORICET) 00 :00 every 6 l 50-325-40 (six) mg per hours as tablet needed for headaches for up to 2 days. butalbital- 2022-0 2022- No 1{tbl} Q6H Take 1 M ethodi acetaminoph -07 02- tablet by st en-caf 00:00: 04:59 mouth Hospita (FIORICET) 00 :00 every 6 l 50-325-40 (six) mg per hours as tablet needed for headaches for up to 2 days. butalbital- 2022-0 2022- No 1{tbl} Q6H Take 1 M ethodi acetaminoph 01-07- tablet by [facility] 00:00: 04:59 mouth Hospita (FIORICET) 00 :00 every 6 l 50-325-40 (six) mg per hours as tablet needed for headaches for up to 2 days. ondansetron 0 Yes [address] (Zofran) 8 4-06 as needed Luke s MG tablet 16:50: [address] ondansetron 2022-0 Yes [address] (Zofran) 8 4-06 as needed Luke s MG tablet 16:50: [address] ondansetron 2022-0 Yes [address] (Zofran) 8 4-06 as needed Luke s MG tablet 16:50: [address] ondansetron 2022-0 Yes [address] (Zofran) 8 4-06 as needed Luke s MG tablet 16:50: [address] ondansetron 3-0 Yes [address] (Zofran) 8 4-06 as needed Luke s MG tablet 16:50: [address] ondansetron 2022-0 Yes [address] (Zofran) 8 4-06 as needed Luke s MG tablet 16:50: [address] ondansetron 2022-0 Yes [address] (Zofran) 8 4-06 as needed Luke s MG tablet 16:50: [address] ondansetron 2022-0 Yes [address] (Zofran) 8 4-06 as needed Luke s MG tablet 16:50: Medical [facility] ondansetron 0 Yes [address] (Zofran) 8 4-06 as needed Luke s MG tablet 16:50: Medical [facility] traMADol 0 2022- No [id number] 50mg Q6H Take 1 UT (Ultram) 50 [...] by Center mouth in the morning. ondansetron 2023-0 2022- No 105 4mg UT (Zofran) 09-18 Health tablet 4 mg 16:42: 16:41 42 :42 traMADol 3-0 2022- No [id number] 50mg Q6H Take 1 UT (Ultram) 50 [...] in the morning. ciprofloxac 2022-0 2022- No [id number] 10[drp] Q.5D Administer UT in-dexameth 09-07 10 drops He alth asone 00:00: 05:59 into each (Ciprodex) 00 :00 ear in the otic morning suspension and 10 drops in the evening. Do all this for 10 days. Lisinopril Lisinopril 2021-08 No 1{table QD Lisinopril 40 MG 40 MG -11 t} 40 MG 00:00: 00 Ondansetron Ondansetron 2021-08 No 1{table Ondansetro 4 MG 4 MG -11 t_on n 4 MG 00:00: e_tongu 00 e_and_a llow_to _dissol ve} Pantoprazol Pantoprazol 2021-08 No 1{table QD Pantoprazo e Sodium 40 e Sodium 40 -11 t} le Sodium MG MG 00:00: 40 MG 00 Lisinopril Lisinopril 2021-08 No 1{table QD Lisinopril 40 MG 40 MG -11 t} 40 MG 00:00: 00 Ondansetron Ondansetron 2021-08 No 1{table Ondansetro 4 MG 4 MG -11 t_on n 4 MG 00:00: e_tongu 00 [...] 1{table Ondansetro 4 MG 4 MG 11 t_on_ n 4 MG 00:00: e_tongu 00 e_and_a llow_to _dissol ve} docusate 2021-08 Yes 100 mg = 1 Mem oria sodium 100 0-08 cap, PO, l mg oral 14:59: Q12H, # 14 Herm faina capsule 00 cap, 0 Refill(s), Pharmacy: [id number], 190.5, cm, 05/16/22 23:38:00 CDT, Height, 159.001, kg, 05/16/22 23:38:00 CDT, Weight senna 8.6 2021-08 Yes 8.6 mg = 1 Me moria mg oral 0-08 tab, PO, l tablet 14:59: Q12H, X 7 Sadi n 00 day, # 14 tab, 0 Refill(s), Pharmacy: [id number], 190.5, cm, 05/16/22 23:38:00 CDT, Height, 159.001, kg, 05/16/22 23:38:00 CDT, Weight polyethylen 2021-08 Yes 17 gm, PO, Memoria e glycol 0-08 BID, X 14 l 3350 oral 14:59: day, # 255 He rmann powder for 00 gm, 0 reconstitut Refill(s), ion Pharmacy: [id number], 190.5, cm, 05/16/22 23:38:00 CDT, Height, 159.001, kg, 05/16/22 23:38:00 CDT, Weight celecoxib 2021-08 Yes 200 mg = 1 Me moria 200 mg oral 0-08 cap, PO, l capsule 13:50: BID, # 28 Kelly nn 00 cap, 0 Refill(s), Pharmacy: [id number], 190.5, cm, 05/16/22 23:38:00 CDT, Height, [...] Duration: 30 day, Stop date: 06/17/22 16:00:00 W[employer]OW [employer] SEWER, 0 hydrOXYzine 2021-08 No Notes: David katarzyna 0-07 (Same as: l 22:45: Vistaril) [place] 00 Omnipaque 2021-08 No Notes: Memori a 350 mg/mL 0-07 (same l 21:28: as:Omnipaq [place] 00 ue 350). WASTE: F/P - Black; [...] 0-07 not exceed l 17:20: 4 gm/day. [place] 00 (Same as: Tylenol) tramadol 50 2021-08 No Notes: Not Memoria mg oral 0-07 to exceed l tablet 16:55: 400mg/day. Kelly nn 00 (Same As: Ultram) tramadol 50 2021-08 Yes 50 mg = 1 M emoria mg oral 0-07 tab, PO, l tablet 12:42: Q6H, PRN [place] 00 Pain, not to exceed 400 mg/day, X 5 day, # 20 tab, 0 Refill(s), Pharmacy: [facility] #[id number], 190.5, cm, 05/16/22 23:38:00 CDT, Height, [...] 0-06 (Same as: l solution 14:00: Floxin [place] 00 Otic) pantoprazol 2021-08 No Notes: David katarzyna e 0-06 Tablet l 14:00: should not [place] 00 be chewed or crushed. (Same as: Protonix) topiramate 2021-08 No Notes: Memor ia 0-06 (Same As: l 14:00: Topamax) [place] 00 "Do Not Crush" [facility] [...] 0-06 TOP, l Max 04:56: Daily, 0 [place] Strength 00 Refill(s) Lidocaine Patches X-Large 4% topical film Saline 2021-08 No Notes: Memoria Flush 0.9% 0-06 (Same as: l 02:00: BD [place] 00 Posiflush) Keppra 500 2021-08 No Notes: Memor ia mg oral 0-06 (Same l tablet 02:00: as:Keppra) Kelly nn 00 sucralfate 2021-08 No Notes: December emoria 0-06 interfere l 02:00: w/enteral [place] 00 feeds - Take 1 hr before or 2 hr after antacids, dairy pdt, meals & minerals - On empty stomach. For patients unable to swallow tablet, dissolve in 10mL - 30mL of water or juice and stir before giving. (Same As: Carafate) Sodium 2021-08 No 1,000 mL, Memori a Chloride 0-06 Rate: 75 l 0.9% IV 00:53: ml/hr, [place] 1,000 mL 00 Infuse over: 13.3 hr, [...] tab, PO, l tablet 00:52: Daily, # [place] 00 30 tab, 0 Refill(s) pantoprazol 2021-08 Yes TAKE 1 David katarzyna e 40 mg 0-06 TABLET BY l oral 00:52: MOUTH [place] enteric 00 EVERY DAY coated tablet sucralfate 2021-08 Yes 1 gm = 1 Mem oria 1 g oral 0-06 tab, PO, l tablet 00:52: Before [place] 00 Meals & Bedtime, # 120 tab, 3 Refill(s) amoxicillin 2021-08 No 1 tab, PO, Memoria -clavulanat 0-06 BID, # 20 l e 875 00:52: tab, 0 [place] mg-125 mg 00 Refill(s) oral tablet metoclopram [...] tab, PO, l tablet 00:52: Q6H, PRN [place] 00 Pain, # 40 tab, 0 Refill(s) [...] l oral tablet 00:52: Daily, # 5 [place] 00 tab, 0 Refill(s) ondansetron 2021-08 No [...] 0-06 mL, Route: l 00:45: IVP, Drug [place] 00 form: INJ, Q15Min, Dosing Weight 159.091, kg, PRN Hypertensi on, Start date: 05/16/22 19:45:00 CDT, Duration: 3 doses or times, Stop date: Limited # of times, 0 hydrALAZINE 2021-08 No Notes: David katarzyna 0-06 (Same as: l 00:45: Apresoline [place] 00 ) Push over 5 minutes ondansetron 2021-08 No Notes: David katarzyna 0-06 (Same as: l 00:45: Zofran) [place] MEDICATION WASTE Product Size: 4 mg Product Wasted: ___ mg Stehekin 2021-08 No Notes: Do Memoria 10/325 oral 0-06 not exceed l tablet 00:45: 4gm/day of Kelly nn 00 acetaminop hen. (Same as: Stehekin 325/10) Dilaudid 2021-08 No 0.5 mg, Memori [...] 1.4% 0-06 Chlorasept l spray 00:45: ic [place] (Same as: Chlorasept ic, Sore Throat [place]) WASTE: F/P - Black; E - Municipal [...] Take 1 UT -clavulanat 0-03 tablet by [facility] e 00:00: mouth (Augmentin) 00 every 12 875-125 MG (twelve) tablet hours. FOR 7 DAYS topiramate 2021-08 Yes TAKE 1 UT (Topamax) 0-03 TABLET [facility] 25 MG 00:00: MOUTH tablet 00 EVERY 12 HOURS FOR 10 DAYS amoxicillin 2021-08 Yes 1{tbl} Q12H Take 1 UT -clavulanat 0-03 tablet by [facility] e 00:00: mouth (Augmentin) 00 every 12 875-125 MG (twelve) tablet hours. FOR 7 DAYS topiramate 2021-08 Yes TAKE 1 UT (Topamax) 0-03 TABLET BY [facility]alt [facility] 25 MG 00:00: MOUTH tablet 00 EVERY 12 HOURS FOR 10 DAYS amoxicillin 2021-08 Yes 1{tbl} Q12H Take 1 UT -clavulanat 0-03 tablet by [facility] e 00:00: mouth (Augmentin) 00 every 12 875-125 MG (twelve) tablet hours. FOR 7 DAYS topiramate 2021-08 Yes TAKE 1 UT (Topamax) 0-03 TABLET BY [facility]alt [facility] 25 MG 00:00: MOUTH tablet 00 EVERY 12 HOURS FOR 10 DAYS amoxicillin 2021-08 Yes 1{tbl} Q12H Take 1 UT -clavulanat 0-03 tablet by [facility] e 00:00: mouth (Augmentin) 00 every [...] tab, PO, l tablet 02:03: Q6H, PRN [place] 00 nausea and vomiting, X 5 day, # 20 tab, 0 Refill(s) ketOROLAC 2021-08 No 15 mg, Memori a 0-02 Route: l 01:29: IVP, Drug form: INJ, ONCE, Dosing Weight 145.455, kg, Priority: STAT, Start date: 05/12/22 20:29:00 CDT, Stop date: 05/12/22 20:29:00 CDT acetaminoph 2021-08 Yes Notes: Do M emoria en 0-02 not exceed l 01:19: 4 gm/day. [place] 00 (Same as: Tylenol) ibuprofen 2021-08 No 600 [...] Memoria Sulfate 0-01 (Same l 15:19: as:MORPhin [place] 00 e Sulfate) Benadryl 2021-08 No 25 mg, Memoria 0-01 Route: l 14:48: IVP, ONCE, Dosing Weight 145.455, kg, Priority: STAT, Start date: 05/12/22 9:48:00 CDT, Stop date: 05/12/22 9:48:00 CDT Isolyte S 2021-08 No 500 mL, Memor ia PH-7.4 0-01 Infuse l (Bolus) IV 14:48: Over: 1 hr, Route: IV, Drug form: INJ, ONCE, [...] 00:00: (one) time 00 each day. ofloxacin 0 Yes INSTILL 4 UT (Floxin) [...] mg Cefazolin 0 No Notes: Memori a 10-10 (Same As: l 04:00: [place] Kovacs Kefzol) MEDICATION WASTE Product Size: 1000 mg Product Wasted: ___ mg Oxycodone 2021-0 No 10 mg, Memori a 10-09 Route: PO, l 21:36: Drug form: [place] 00 TAB, ONCE, Dosing Weight 156, kg, PRN Pain Score 7-10, Start date: 10/09/21 15:36:00 [employer] Oxycodone 2021-0 No 10 mg, Memori a 10-09 Route: PO, l 21:36: Drug form: [place] 00 TAB, ONCE, Dosing Weight 156, kg, PRN Pain Score 7-10, Start date: 10/09/21 15:36:00 [employer] Ofirmev 2022-0 No or = 50 Memori a 2-28 kg, Start l 21:19: date: 10/09/21 15:19:00 [employer] Ofirmev 2021-0 No or = 50 Memori a 2-28 kg, Start l 21:19: date: 10/09/21 15:19:00 [employer] sugammadex 2021-0 No Route: IV, M emoria (ANES) 2- Drug form: l 21:05: SOLN, [place] 00 ONCE, Stop date: 10/09/21 15:05:00 [employer] sugammadex 2021-0 No Route: IV, M emoria (ANES) 2-28 Drug form: l 21:05: SOLN, [place] 00 ONCE, Stop date: 10/09/21 15:05:00 [employer] Hydromorpho 2021-0 No Notes: David kaatrzyna ne 2-28 Same as l 21:02: Dilaudid Flumazenil 2021-0 No Notes: Memor ia 2-28 (Same as: l 21:02: Romazicon) Naloxone 2021-0 No Notes: Memoria 2-28 Same as l 21:02: Narcan Ondansetron 2021-0 No 4 mg, Memor ia 2-28 Route: l 21:02: IVP, ONCE, [place] 00 Dosing Weight 156, kg, PRN Nausea & Vomiting, Start date: 10/09/21 15:02:00 [employer] Hydromorpho 2021-0 No Notes: David katarzyna ne 2-28 Same as l 21:02: Dilaudid Flumazenil 2021-0 No Notes: Memor ia 2-28 (Same as: l 21:02: Romazicon) Naloxone 2021-0 No Notes: Memoria 2-28 Same as l 21:02: Narcan Ondansetron 2021-0 No 4 mg, Memor ia 2-28 Route: l 21:02: IVP, ONCE, [place] Dosing Weight 156, kg, PRN Nausea & Vomiting, Start date: 10/09/21 15:02:00 [employer] ondansetron 2021-0 No Route: IV, Memoria (ANES) 2-28 Drug form: l 21:00: INJ, ONCE, Stop date: 10/09/21 15:00:00 [employer] ondansetron 0 No Route: IV, Memoria (ANES) 10-09 Drug form: l 21:00: INJ, ONCE, Stop date: 10/09/21 15:00:00 [employer] ceFAZolin 2021-0 No Route: IV, Me moria (ANES) 10-09 Drug form: l 20:38: INJ, ONCE, Stop date: 10/09/21 14:38:00 [employer] ceFAZolin 2021-0 No Route: IV, Me moria (ANES) 10-09 Drug form: l 20:38: INJ, ONCE, Stop date: 10/09/21 14:38:00 [employer] propofol 2021-0 No Route: IV, Mem oria (ANES) 10-09 Drug form: l 20:33: INJ, ONCE, Stop date: 10/09/21 14:33:00 [employer] rocuronium 2021-0 No Route: IV, M emoria (ANES) 10-09 Drug form: l 20:33: INJ, ONCE, Stop date: 10/09/21 14:33:00 [employer] fentaNYL 2021-0 No Route: IV, Mem oria (ANES) 10-09 Drug form: l 20:33: INJ, ONCE, Stop date: 10/09/21 14:33:00 [employer] dexamethaso 2021-0 No Route: IV, Memoria ne (ANES) 10-09 Drug form: l 20:33: INJ, ONCE, Stop date: 10/09/21 14:33:00 [employer] propofol 2021-0 No Route: IV, Mem oria (ANES) 10-09 Drug form: l 20:33: INJ, ONCE, Stop date: 10/09/21 14:33:00 [employer] rocuronium 2021-0 No Route: IV, M emoria (ANES) 10-09 Drug form: l 20:33: INJ, ONCE, Stop date: 10/09/21 14:33:00 [employer] fentaNYL 2021-0 No Route: IV, Mem oria (ANES) 10-09 Drug form: l 20:33: INJ, ONCE, Stop date: 10/09/21 14:33:00 [employer] dexamethaso 2021-0 No Route: IV, Memoria ne (ANES) 10-09 Drug form: l 20:33: INJ, ONCE, Stop date: 10/09/21 14:33:00 [employer] lidocaine 2021-0 No Route: IV, Me moria (ANES) 10-09 Drug form: l 20:28: INJ, ONCE, Stop date: 10/09/21 14:28:00 [employer] lidocaine 2021-0 No Route: IV, Me moria (ANES) - Drug form: l 20:28: INJ, ONCE, Stop date: 10/09/21 14:28:00 [employer] Isolyte S 2021-0 No Route: IV, Me moria PH 7.4 2- Total l (ANES) 1000 19:29: Volume: Her jones mL 00 1,000, Start date: 10/09/21 13:29:00 [employer], Stop date: 10/09/21 14:29:00 [employer] Isolyte S 2021-0 No Route: IV, Me moria PH 7.4 2-28 Total l (ANES) 1000 19:29: Volume: Her jones mL 00 1,000, Start date: 10/09/21 13:29:00 [employer], Stop date: 10/09/21 14:29:00 [employer] Epinephrine 2021-0 Yes Notes: David katarzyna 0.01 MG/ML -28 (Same as: l / Lidocaine 18:26: Xylocaine H ermann Hydrochlori 00 w/Epinephr de 10 MG/ML ine) Injectable Solution Epinephrine 2021-0 Yes Notes: David katarzyna 0.01 MG/ML 2-28 (Same as: l / Lidocaine 18:26: Xylocaine H ermann Hydrochlori 00 w/Epinephr de 10 MG/ML ine) Injectable Solution Lidocaine 0 No 1 patch, David katarzyna 0.05 MG/MG 10-09 Route: l Transdermal 15:00: TOP, Sadi n Patch 00 Daily, Drug form: FILM, Start date: 10/09/21 9:00:00 [employer], Duration: 30 day, Stop date: 11/07/21 9:00:00 CDT, 0 Levetiracet 2021-0 No 500 mg, 1 M emoria am 500 MG 2-28 tab, l Oral Tablet 15:00: Route: PO, [place] [Keppra] 00 Drug form: TAB, Q12H, Dosing Weight 156, kg, Start date: 10/09/21 9:00:00 [employer], Duration: 30 day, Stop date: 11/07/21 21:00:00 CDT, 0 Lidocaine 2021-0 No 1 patch, David katarzyna 0.05 MG/MG 10-09 Route: l Transdermal 15:00: TOP, Sadi n Patch 00 Daily, Drug form: FILM, Start date: 10/09/21 9:00:00 [employer], Duration: 30 day, Stop date: 11/07/21 9:00:00 CDT, 0 Levetiracet 2021-0 No 500 mg, 1 M emoria am 500 MG 2-28 tab, l Oral Tablet 15:00: Route: PO, [place] [Keppra] Drug form: TAB, Q12H, Dosing Weight 156, kg, Start date: 10/09/21 9:00:00 [employer], Duration: 30 day, Stop date: 11/07/21 21:00:00 CDT, 0 Hydromorpho 2021-0 No Notes: David katarzyna ne - Same as l 13:57: Dilaudid [place] Hydromorpho No Notes: David katarzyna ne 2-28 Same as l 13:57: Dilaudid [place] 00 Reglan 2021-0 No Notes: Memoria 2-28 (Same as: l 08:15: Reglan) [place] 00 Dilaudid 2021-0 No Notes: Memoria 2-28 Same as l 08:15: Dilaudid [place] 00 Reglan 2021-0 No Notes: Memoria 2-28 (Same as: l 08:15: Reglan) [place] 00 Dilaudid 2021-0 No Notes: Memoria 2-28 Same as l 08:15: Dilaudid [place] 00 Sodium 2021-0 No 1,000 mL, Memori a Chloride - Rate: 75 l 0.9% IV 06:49: ml/hr, [place] 1,000 mL 00 Infuse over: 13.3 hr, Route: IV, Dosing Weight 156 kg, Total Volume: 1,000, Start date: 10/09/21 0:49:00 [employer], Duration: 30 day, Stop date: 11/08/21 0:48:00 CDT, BSA: 2.9 m2, 0 Sodium No 1,000 mL, Memori a Chloride 2-28 Rate: 75 l 0.9% IV 06:49: ml/hr, [place] 1,000 mL 00 Infuse over: 13.3 hr, Route: IV, Dosing Weight 156 kg, Total Volume: 1,000, Start date: 10/09/21 0:49:00 [employer], Duration: 30 day, Stop date: 11/08/21 0:48:00 CDT, BSA: 2.9 m2, 0 Docusate No Notes: Memoria 2-28 (Same as: l 03:00: Colace) [place] 00 (Do Not Crush) Docusate No Notes: Memoria 2-28 (Same as: l 03:00: Colace) [place] 00 (Do Not Crush) sennosides, No Notes: David katarzyna PRISON 2-28 (Same as: l 03:00: Senokot) [place] 00 Saline No Notes: Memoria Flush 0.9% 2-28 (Same as: l 03:00: BD [place] 00 Posiflush) sennosides, No Notes: David katarzyna PRISON 2-28 (Same as: l 03:00: Senokot) [place] 00 Saline No Notes: Memoria Flush 0.9% 2-28 (Same as: l 03:00: BD [place] 00 Posiflush) Sodium No 1,000 mL, Memori a Chloride 2-28 Rate: 50 l 0.9% IV 01:57: ml/hr, [place] 1,000 mL 00 Infuse over: 20 hr, Route: IV, Dosing Weight 156 kg, Total Volume: 1,000, Start date: 10/08/21 19:57:00 [employer], Duration: 30 day, Stop date: 11/07/21 19:56:00 CDT, BSA: 2.9 m2, 0 Acetaminoph No Notes: Do M emoria en - not exceed l 01:57: 4 gm/day. [place] (Same as: Tylenol) Acetaminoph No Notes: David katarzyna en 325 MG / - (Same as: l Hydrocodone 01:57: Stehekin Kelly nn Bitartrate 00 325/5) Do 5 MG Oral not exceed Tablet 4gm/day of acetaminop hen. Morphine No Notes: Memoria 2-28 (Same l 01:57: as:MORPhin e Sulfate) Bisacodyl No Notes: Memori a - (Same As: l 01:57: Dulcolax, Bisco-Lax) Ondansetron No Notes: David katarzyna - (Same as: l 01:57: Zofran) MEDICATION WASTE Product Size: 4 mg Product Wasted: ___ mg Hydralazine No Notes: David katarzyna - (Same as: l 01:57: Apresoline ) Push over 5 minutes Labetalol No 10 mg, 2 David katarzyna 2-28 mL, Route: l 01:57: IVP, Drug form: INJ, Q15Min, Dosing Weight 156, kg, PRN Hypertensi on, Start date: 10/08/21 19:57:00 [employer], Duration: 3 doses or times, Stop date: [...] Total Volume: 1,000, Start date: 10/08/21 19:57:00 [employer], Duration: 30 day, Stop date: 11/07/21 19:56:00 CDT, BSA: 2.9 m2, 0 Acetaminoph No Notes: Do M emoria en 2-28 not exceed l 01:57: 4 gm/day. [place] 00 (Same as: Tylenol) Acetaminoph No Notes: David katarzyna en 325 MG / - (Same as: l Hydrocodone 01:57: Stehekin Kelly nn Bitartrate 00 325/5) Do 5 MG Oral not exceed Tablet 4gm/day of acetaminop hen. Morphine No Notes: Memoria 2-28 (Same l 01:57: as:MORPhin [place] 00 e Sulfate) Bisacodyl No Notes: Memori a 2-28 (Same As: l 01:57: Dulcolax, [place] Bisco-Lax) Ondansetron No Notes: David katarzyna 2-28 [...] PRN Hypertensi on, Start date: 10/08/21 19:57:00 [employer], Duration: 3 doses or times, Stop date: Limited # of times, 0 Saline No Notes: Memoria Flush 0.9% - (Same as: l 01:57: BD [place] 00 Posiflush) Insulin No Notes: Memoria regular 2-28 (Same as: l 01:57: Humulin R) [place] 00 Roll in palms of hands gently; Do not shake vigorously . WASTE: F/P - Black; E - Municipal Trash Bin Stable for 31 days at room temperatur e Expires in days from ____Date Dilaudid No Notes: Memoria 2-28 Same as l 01:30: Dilaudid [place] Dilaudid No Notes: Memoria 2-28 Same as l 01:30: Dilaudid [place] 00 Levetiracet Yes 500 mg = 1 Memoria am 500 MG 2-24 tab, PO, l Oral Tablet 13:52: Q12H, # 60 [place] [Keppra] 00 tab, 0 Refill(s), Pharmacy: [facility] #[id number], 190.5, cm, 10/03/21 6:40:00 [employer], Height, 159.3, kg, 10/03/21 6:40:00 [employer], Weight docusate Yes 2 cap, PO, Mem oria sodium 50 2-24 QPM, X 10 l MG / 13:52: day, # 20 [place] sennosides, 00 cap, 0 PRISON 8.6 MG Refill(s), Oral Pharmacy: [facility] #[id number], 190.5, cm, 10/03/21 6:40:00 [employer], Height, 159.3, kg, 10/03/21 6:40:00 [employer], Weight magnesium Yes 8.725 gm = Me moria citrate 2-24 150 ml, l 58.2 MG/ML 13:52: PO, ONCE, He rmann Oral 00 if no Solution bowel movement in couple days, # 300 ml, 0 Refill(s), Pharmacy: [facility] #[id number], 190.5, cm, 10/03/21 6:40:00 [employer], Height, 159.3, kg, 10/03/21 6:40:00 [employer], Weight POLYETHYLEN Yes 17 gm, PO, Memoria E GLYCOL 2-24 Daily, X l 3350 142 13:52: 10 day, # Herm faina MG/ML Oral 00 170 gm, 0 Solution Refill(s), [Miralax] Pharmacy: [facility] #[id number], 190.5, cm, 10/03/21 6:40:00 [employer], Height, 159.3, kg, 10/03/21 6:40:00 [employer], Weight Ondansetron No 4 mg = 1 Me moria 4 MG Oral 2-24 tab, PO, l Tablet 13:52: Q8H, PRN [place] [Zofran] 00 Nausea/vom iting, X 3 day, # 10 tab, 0 Refill(s), Pharmacy: [email or web address] #[id number], 190.5, cm, 10/03/21 6:40:00 [employer], Height, 159.3, kg, 10/03/21 6:40:00 [employer], Weight Acetaminoph Yes 1 tab, PO, Memoria en 325 MG / 2-24 Q4-6H, PRN l Hydrocodone 13:52: Pain Score [place] Bitartrate 00 4-6, X 5 5 MG Oral day, # 30 Tablet tab, 0 [Stehekin Refill(s), 5/325] other Levetiracet Yes 500 mg = 1 Memoria am 500 MG 2-24 tab, PO, l Oral Tablet 13:52: Q12H, # 60 [place] [Keppra] 00 tab, 0 Refill(s), Pharmacy: [email or web address] #[id number], 190.5, cm, 10/03/21 6:40:00 [employer], Height, 159.3, kg, 10/03/21 6:40:00 [employer], Weight docusate Yes 2 cap, PO, Mem oria sodium 50 2-24 QPM, X 10 l MG / 13:52: day, # 20 [place] sennosides, 00 cap, 0 PRISON 8.6 MG Refill(s), Oral Pharmacy: [email or web address] #[id number], 190.5, cm, 10/03/21 6:40:00 [employer], Height, 159.3, kg, 10/03/21 6:40:00 [employer], Weight magnesium Yes 8.725 gm = Me moria citrate 2-24 150 ml, l 58.2 MG/ML 13:52: PO, ONCE, He rmann Oral 00 if no Solution bowel movement in couple days, # 300 ml, 0 Refill(s), Pharmacy: [facility] #[id number], 190.5, cm, 10/03/21 6:40:00 [employer], Height, 159.3, kg, 10/03/21 6:40:00 [employer], Weight POLYETHYLEN Yes 17 gm, PO, Memoria E GLYCOL 2-24 Daily, X l 3350 142 13:52: 10 day, # Herm faina MG/ML Oral 00 170 gm, 0 Solution Refill(s), [Miralax] Pharmacy: [facility] #[id number], 190.5, cm, 10/03/21 6:40:00 [employer], Height, 159.3, kg, 10/03/21 6:40:00 [employer], Weight Ondansetron No 4 mg = 1 Me moria 4 MG Oral 2-24 tab, PO, l Tablet 13:52: Q8H, PRN [place] [Zofran] 00 Nausea/vom iting, X 3 day, # 10 tab, 0 Refill(s), Pharmacy: [facility] #[id number], 190.5, cm, 10/03/21 6:40:00 [employer], Height, 159.3, kg, 10/03/21 6:40:00 [employer], Weight Acetaminoph Yes 1 tab, PO, Memoria en 325 MG / 2-24 Q4-6H, PRN l Hydrocodone 13:52: Pain Score [place] Bitartrate 00 4-6, X 5 5 MG Oral day, # 30 Tablet tab, 0 [Stehekin Refill(s), 5/325] other heparin No Notes: Memoria [...] l Oral Tablet 03:00: as:Keppra) [Keppra] 00 Saline No Notes: Memoria Flush 0.9% 2-23 Same as: l 03:00: BD Posiflush Sterile Levetiracet No Notes: David katarzyna am 500 MG 2-23 (Same l Oral Tablet 03:00: as:Keppra) [Keppra] 00 Cefazolin No Notes: Memori a 2-23 (Same as l 02:00: Ancef) Cefazolin No Notes: Memori a 2-23 (Same as l 02:00: Ancef) Docusate No Notes: Memoria 2-22 (Same as: l 23:00: Colace) (Do Not Crush) sennosides, No Notes: David katarzyna PRISON 2-22 (Same as: l 23:00: Senokot) Famotidine No Notes: Memor ia 20 MG Oral 2-22 (Same as: l Tablet 23:00: Pepcid) Docusate No Notes: Memoria 2-22 (Same as: l 23:00: Colace) (Do Not Crush) sennosides, No Notes: David katarzyna PRISON 2-22 (Same as: l 23:00: Senokot) Famotidine No Notes: Memor ia 20 MG Oral 2-22 (Same as: l Tablet 23:00: Pepcid) Hydromorpho No 0.5 mg, Mem oria ne 2-22 Route: l 20:05: IVP, ONCE, Dosing Weight 159.3, kg, Priority: STAT, Start date: 10/03/21 14:05:00 [employer], Stop date: 10/03/21 14:05:00 [employer] Hydromorpho No 0.5 mg, Mem oria ne -22 Route: l 20:05: IVP, ONCE, Dosing Weight 159.3, kg, Priority: STAT, Start date: 10/03/21 14:05:00 [employer], Stop date: 10/03/21 14:05:00 [employer] metoprolol 2021-0 No Route: IV, M emoria (ANES) 10-03 Drug form: l 19:20: INJ, ONCE, [place] 00 Stop date: 10/03/21 13:20:00 [employer] metoprolol 2021-0 No Route: IV, M emoria (ANES) 10-03 Drug form: l 19:20: INJ, ONCE, [place] 00 Stop date: 10/03/21 13:20:00 [employer] Oxycodone 2021-0 No 10 mg, Memori a Hydrochlori 10-03 Route: PO, l de 5 MG 19:16: Drug form: Herm faina Oral Tablet 00 TAB, Q4H, Dosing Weight 159.3, kg, PRN Pain Score 7-10, Start date: 10/03/21 13:16:00 [employer], Duration: 30 day, Stop date: 11/02/21 13:15:00 CDT Oxycodone 2021-0 No 10 mg, Memori a Hydrochlori 10-03 Route: PO, l de 5 MG 19:16: Drug form: Herm faina Oral Tablet 00 TAB, Q4H, Dosing Weight 159.3, kg, PRN Pain Score 7-10, Start date: 10/03/21 13:16:00 [employer], Duration: 30 day, Stop date: 11/02/21 13:15:00 CDT sugammadex 2021-0 No Route: IV, M emoria (ANES) 10-03 Drug form: l 18:37: SOLN [place] 00 ONCE, Stop date: 10/03/21 12:37:00 [employer] sugammadex 2-0 No Route: IV, M emoria (ANES) 10-03 Drug form: l 18:37: SOLN, [place] 00 ONCE, Stop date: 10/03/21 12:37:00 [employer] ondansetron 2021-0 No Route: IV, Memoria (ANES) 10-03 Drug form: l 18:22: INJ, ONCE, [place] 00 Stop date: 10/03/21 12:22:00 [employer] ondansetron 2021-0 No Route: IV, Memoria (ANES) 10-03 Drug form: l 18:22: INJ, ONCE, Stop date: 10/03/21 12:22:00 [employer] Dexamethaso No Notes: David katarzyna ne 2- Give with l 18:00: food. (Same As: Decadron) Dexamethaso No Notes: David katarzyna ne - Give with l 18:00: food. (Same As: Decadron) Hydralazine No Notes: David katarzyna 2- (Same as: l 17:50: Apresoline ) Push over 5 minutes Ondansetron No Notes: David katarzyna 2- (Same as: l 17:50: Zofran) MEDICATION WASTE Product Size: 4 mg Product Wasted: ___ mg Acetaminoph No Notes: Do M emoria en 325 MG / - not exceed l Hydrocodone 17:50: 4gm/day of Bitartrate 00 acetaminop 10 MG Oral hen. (Same Tablet as: Stehekin [Stehekin 325/10) 10/325] Dilaudid No Notes: Memoria 2-22 Same as l 17:50: Dilaudid Benadryl No Notes: Memoria 2-22 (Same as: l 17:50: Benadryl) phenol No Notes: Memoria 2- Chlorasept l 17:50: ic [place] (Same as: Chlorasept ic, Sore Throat [place]) WASTE: F/P - Black; E - Municipal Trash Bin Bisacodyl No Notes: Memori a 2-22 (Same As: l 17:50: Dulcolax, Bisco-Lax) Robaxin No Notes: Memoria 2-22 (Same l 17:50: as:Robaxin ) Melatonin 3 No Notes: David katarzyna MG Extended 10-03 (Same as: l Release 17:50: Melatonin) faina Tablet Tylenol No Notes: Do Memor ia 2-22 not exceed l 17:50: 4 gm/day. [place] 00 (Same as: Tylenol) Reglan No Notes: Memoria 2-22 (Same as: l 17:50: Reglan) [place] 00 Phenergan No Notes: Do Mem oria 2- not give l 17:50: IV push. [place] 00 (Same as: Phenergan) Saline No Notes: Memoria Flush 0.9% 2- Same as: l 17:50: BD [place] 00 Posiflush Sterile Sodium No 1,000 mL, Memori a Chloride 10-03 Rate: 100 l 0.9% IV 17:50: ml/hr, [place] 1,000 mL 00 Infuse over: 10 hr, Route: IV, Dosing Weight 159.3 kg, Total Volume: 1,000, Start date: 10/03/21 11:50:00 [employer], Duration: 30 day, Stop date: 11/02/21 11:49:00 CDT, BSA: 2.93 m2, 0 Labetalol No 10 mg, 2 David katarzyna 2-22 mL, Route: l 17:50: IVP, Drug form: INJ, Q15Min, Dosing Weight 159.3, kg, PRN Hypertensi on, Start date: 10/03/21 11:50:00 [employer], Duration: 3 doses or times, Stop date: 10/04/21 0:00:00 [employer], 0 Hydralazine No Notes: David katarzyna 2-22 (Same as: l 17:50: Apresoline ) Push over 5 minutes Ondansetron No Notes: David katarzyna 2-22 (Same as: l 17:50: Zofran) MEDICATION WASTE Product Size: 4 mg Product Wasted: ___ mg Acetaminoph No Notes: Do M emoria en 325 MG / 2-22 not exceed l Hydrocodone 17:50: 4gm/day of [place] Bitartrate 00 acetaminop 10 MG Oral hen. (Same Tablet as: Stehekin [Stehekin 325/10) 10] Dilaudid No Notes: Memoria 2-22 Same as l 17:50: Dilaudid Benadryl No Notes: Memoria 2-22 (Same as: l 17:50: Benadryl) phenol No Notes: Memoria 2-22 Chlorasept l 17:50: ic [place] (Same as: Chlorasept ic, Sore Throat [place]) WASTE: F/P - Black; E - Municipal Trash Bin Bisacodyl No Notes: Memori a 2-22 (Same As: l 17:50: Dulcolax, Bisco-Lax) Robaxin No Notes: Memoria 2-22 (Same l 17:50: as:Robaxin ) Melatonin 3 No Notes: David katarzyna MG Extended 2-22 (Same as: l Release 17:50: Melatonin) Tylenol [...] Total Volume: 1,000, Start date: 10/03/21 11:50:00 [employer], Duration: 30 day, Stop date: 11/02/21 11:49:00 CDT, BSA: 2.93 m2, 0 Labetalol No 10 mg, 2 David katarzyna 2-22 mL, Route: l 17:50: IVP, Drug form: INJ, Q15Min, Dosing Weight 159.3, kg, PRN Hypertensi on, Start date: 10/03/21 11:50:00 [employer], Duration: 3 doses or times, Stop date: 10/04/21 0:00:00 [employer], 0 lidocaine 2021-0 No Route: IV, Me moria (ANES) 10-03 Drug form: l 16:45: INJ, ONCE, Stop date: 10/03/21 10:45:00 [employer] rocuronium 2021-0 No Route: IV, M emoria (ANES) 2- Drug form: l 16:45: INJ, ONCE, Stop date: 10/03/21 10:45:00 [employer] dexamethaso 2021-0 No Route: IV, Memoria ne (ANES) 2- Drug form: l 16:45: INJ, ONCE, Stop date: 10/03/21 10:45:00 [employer] lidocaine 2021-0 No Route: IV, Me moria (ANES) 2 Drug form: l 16:45: INJ, ONCE, Stop date: 10/03/21 10:45:00 [employer] rocuronium 2021-0 No Route: IV, M emoria (ANES) 2- Drug form: l 16:45: INJ, ONCE, Stop date: 10/03/21 10:45:00 [employer] dexamethaso 2021-0 No Route: IV, Memoria ne (ANES) 2 Drug form: l 16:45: INJ, ONCE, Stop date: 10/03/21 10:45:00 [employer] phenylephri 2021-0 No Route: IV, Memoria ne (ANES) 2- Drug form: l 16:40: INJ, ONCE, Stop date: 10/03/21 10:40:00 [employer] phenylephri 2021-0 No Route: IV, Memoria ne (ANES) 2- Drug form: l 16:40: INJ, ONCE, Stop date: 10/03/21 10:40:00 [employer] Hydralazine 2021-0 No Notes: David katarzyna - (Same as: l 16:37: Apresoline ) Push over 5 minutes Labetalol 2022-0 No 10 mg, 2 David katarzyna 2-22 mL, Route: l 16:37: IVP, Drug form: INJ, Q5Min, Dosing Weight 159.3, kg, PRN Elevated BP, Start date: 10/03/21 10:37:00 [employer], Duration: 5 doses or times, Stop date: 10/04/21 0:00:00 [employer], 0 Oxycodone No Notes: Memori a Hydrochlori [...] katarzyna 2-22 (Same as: l 16:37: Apresoline [place] 00 ) Push over 5 minutes Labetalol No 10 mg, 2 David katarzyna 2-22 mL, Route: l 16:37: IVP, Drug form: INJ, Q5Min, Dosing Weight 159.3, kg, PRN Elevated BP, Start date: 10/03/21 10:37:00 [employer], Duration: 5 doses or times, Stop date: 10/04/21 0:00:00 [employer], 0 Oxycodone No Notes: Memori a Hydrochlori [...] 16:35: INJ, ONCE, Stop date: 10/03/21 10:35:00 [employer] fentaNYL 0 No Route: IV, Mem oria (ANES) 2- Drug form: l 16:35: INJ, ONCE, Stop date: 10/03/21 10:35:00 [employer] propofol 2021-0 No Route: IV, Mem oria (ANES) 2- Drug form: l 16:35: INJ, ONCE, Stop date: 10/03/21 10:35:00 [employer] fentaNYL 2021-0 No Route: IV, Mem oria (ANES) 2- Drug form: l 16:35: INJ, ONCE, Stop date: 10/03/21 10:35:00 [employer] midazolam 2021-0 No Route: IV, Me moria (ANES) 2- Drug form: l 16:24: SOLN, [place] ONCE, Stop date: 10/03/21 10:24:00 [employer] ceFAZolin 0 No Route: IV, Me moria (ANES) 2-22 Drug form: l 16:24: INJ, ONCE, Stop date: 10/03/21 10:24:00 [employer] midazolam 2021-0 No Route: IV, Me moria (ANES) 2-22 Drug form: l 16:24: SOLN, [place] ONCE, Stop date: 10/03/21 10:24:00 [employer] ceFAZolin 2021-0 No Route: IV, Me moria (ANES) 2-22 Drug form: l 16:24: INJ, ONCE, Stop date: 10/03/21 10:24:00 [employer] levETIRAcet No Route: IV, Memoria am (ANES) 10-03 Drug form: l 100 mg 16:20: INJ, Start Kelly date: 10/03/21 10:20:00 [employer], Stop date: 10/03/21 11:20:00 [employer] levETIRAcet No Route: IV, Memoria am (ANES) 10-03 Drug form: l 100 mg 16:20: INJ, Start Kelly date: 10/03/21 10:20:00 [employer], Stop date: 10/03/21 11:20:00 [employer] propofol No Route: IV, Mem oria (ANES) 10 10-03 Drug form: l mg 15:26: INJ, Start [place] 00 date: 10/03/21 9:26:00 [employer], Stop date: 10/03/21 10:26:00 [employer] propofol No Route: IV, Mem oria (ANES) 10 10-03 Drug form: l mg 15:26: INJ, Start date: 10/03/21 9:26:00 [employer], Stop date: 10/03/21 10:26:00 [employer] Isolyte S No Route: IV, Me moria PH 7.4 10-03 Total l (ANES) 1000 14:26: Volume: Her jones mL 00 1,000, Start date: 10/03/21 8:26:00 [employer], Stop date: 10/03/21 9:26:00 [employer] Isolyte S No Route: IV, Me moria PH 7.4 10-03 Total l (ANES) 1000 14:26: Volume: Her jones mL 00 1,000, Start date: 10/03/21 8:26:00 [employer], Stop date: 10/03/21 9:26:00 [employer] Isolyte S No Notes: Memori a PH 7.4 10-03 (Same as: l 1,000 mL 12:35: Isolyte S Herm faina 00 PH7.4, Normosol-R PH 7.4, Plasma-Lyt e A ) Acetaminoph No 1,000 mg, M emoria en 10-03 Route: PO, l 12:35: Drug form: [place] 00 TAB, PRE OP, Dosing Weight 160.3, kg, Priority: NOW, Start date: 10/03/21 6:35:00 [employer], Duration: 1 doses or times Isolyte S No Notes: Memori a PH 7.4 2- (Same as: l 1,000 mL 12:35: Isolyte S Herm faina 00 PH7.4, Normosol-R PH 7.4, Plasma-Lyt e A ) Acetaminoph No 1,000 mg, M emoria en 10-03 Route: PO, l 12:35: Drug form: [place] 00 TAB, PRE OP, Dosing Weight 160.3, kg, Priority: NOW, Start date: 10/03/21 6:35:00 [employer], Duration: 1 doses or times NS + KCL No Notes: Memoria 20mEq/L 10-03 PREMIX IV l 1000ml 12:00: - Do Not [place] (Premix) 00 Alter 1,000 mL WASTE: F/P - Sink; E - Municipal Trash Bin ceFAZolin + No Notes: David katarzyna sterile - (Same As: l water 30 mL 12:00: Ancef, Herm faina 00 Kefzol) MEDICATION WASTE Product Size: 1000 mg Product Wasted: ___ mg NS + KCL No Notes: Memoria 20mEq/L 10-03 PREMIX IV l 1000ml 12:00: - Do Not [place] (Premix) 00 Alter 1,000 mL WASTE: F/P - Sink; E - Municipal Trash Bin ceFAZolin + No Notes: David katarzyna sterile - (Same As: l water 30 mL 12:00: [...] 0 Memoria 2-21 Refill(s) l 18:02: [place] Sodium 0 No 250 mL, Memoria Chloride 2-21 Rate: To l 0.9% 17:06: prime line [place] (titrate) 00 and flush 250 mL remaining blood products., Dosing Weight 160.3, kg, Route: IV, Total Volume: 250, Start Date: 10/02/21 11:06:00 [employer], Duration: 1 day, Stop date: 10/03/21 11:05:00 [employer], Replace Every: 24 hr, 0 Sodium 0 No 250 mL, Memoria Chloride 2-21 Rate: To l 0.9% 17:06: prime line [place] (titrate) 00 and flush 250 mL remaining blood products., Dosing Weight 160.3, kg, Route: IV, Total Volume: 250, Start Date: 10/02/21 11:06:00 [employer], Duration: 1 day, Stop date: 10/03/21 11:05:00 [employer], Replace Every: 24 hr, 0 Acetaminoph 0 No 1 tab, David katarzyna en 325 MG / 05-11 Route: PO, l Hydrocodone 12:17: Drug Form: [place] Bitartrate 00 TAB, 5 MG Oral Dosing [...] 0 No 1,000 mg, M emoria en 9-30 Route: PO, l 07:46: ONCE, [place] Dosing Weight 139.409, kg, Start date: 05/11/21 [...] 00:00: eded} e 300-30 00 MG levoFLOXaci 2021-0 Yes TAKE 1 Univ ers n 750 mg 8-02 TABLET BY ity of tablet 00:00: MOUTH [place] 00 EVERY DAY Medical FOR 10 Branch DAYS levoFLOXaci 2021-0 Yes TAKE 1 Univ ers n 750 mg 8-02 TABLET BY ity of tablet 00:00: MOUTH [place] 00 EVERY DAY Medical FOR 10 Branch DAYS CIPRODEX 1-0 Yes INSTILL 4 Univ ers 0.3-0.1 % 7-20 DROPS IN ity of otic drops 00:00: LEFT EAR [place] as 00 TWICE A Medical DAY FOR 10 Branch DAYS CIPRODEX Yes INSTILL 4 Univ ers 0.3-0.1 % 7-20 DROPS IN ity of otic drops 00:00: LEFT EAR [place] as 00 TWICE A Medical DAY FOR 10 Branch DAYS ofloxacin Yes INSTILL 10 Un janette 0.3 % otic 6-09 DROPS IN ity o f drops 00:00: LEFT EAR [place] 00 TWICE A Medical DAY Branch amoxicillin Yes TAKE 1 Univ ers -pot 6-09 TABLET BY ity of clavulanate 00:00: MOUTH [place] 1,000-62.5 00 TWICE A Medica l mg 12 hr DAY FOR 10 Branc h tablet DAYS ofloxacin Yes INSTILL 10 Un janette 0.3 % otic 6-09 DROPS IN ity o f drops 00:00: LEFT EAR [place] 00 TWICE A Medical DAY Branch amoxicillin Yes TAKE 1 Univ ers -pot 6-09 TABLET BY ity of clavulanate 00:00: MOUTH [place] 1,000-62.5 00 TWICE A Medica l mg 12 hr DAY FOR 10 Branc h tablet DAYS proMETHazin Yes TAKE 1 Univ ers e 25 mg 5-25 TABLET BY ity of tablet 00:00: MOUTH [place] 00 EVERY 6 Medical HOURS Branch NEEDED FOR NAUSEA SUMAtriptan Yes TAKE 1 Univ ers 25 mg 5-25 TABLET BY ity of tablet 00:00: MOUTH AT [place] 00 ONSET OF Medical MIGRAINE. Branch MAY REPEAT IN 2 HOURS IF NEEDED (MAX OF 8 DAILY) butalbital- Yes TAKE 1 Univ ers aspirin-caf [...] HOURS IF NEEDED (MAX OF 8 DAILY) butalbital- 2021-0 Yes TAKE 1 Univ ers aspirin-caf 5-25 CAPSULE BY it y of ryan 00:00: MOUTH [place] 50-325-40 00 EVERY 4 Medical mg per HOURS PPA Branch capsule (MAX OF 6 CAPSULES DAILY) amoxicillin Yes TAKE 1 Univ ers -clavulanat 5-24 TABLET BY ity of e 875-125 00:00: MOUTH [place] mg per 00 EVERY 12 Medical tablet HOURS FOR Branch 10 DAYS amoxicillin 0 Yes TAKE 1 Univ ers -clavulanat 5-24 TABLET BY ity of e 875-125 00:00: MOUTH [place] mg per 00 EVERY 12 Medical tablet HOURS FOR Branch 10 DAYS Kenalog Kenalog 2019-08 No 40mg Common (Triamcinol (Triamcinol 0-12 S pirit one) one) 00:00: - [facility] 00 [facility] Kenalog Kenalog 2019-08 No 40mg Common (Triamcinol (Triamcinol 0-12 S pirit one) one) 00:00: - [facility]I 00 [facility] Kenalog Kenalog 2019- No 40mg Common (Triamcinol (Triamcinol 0-12 S pirit one) one) 00:00: - [facility]I 00 [facility] Kenalog Kenalog 2019- No 40mg Common (Triamcinol (Triamcinol 0-12 S pirit one) one) 00:00: - [facility]I 00 [facility] Kenalog Kenalog 2019- No 40mg Common (Triamcinol (Triamcinol 0-12 S pirit one) one) 00:00: - [facility]I 00 [facility] Amoxicillin Amoxicillin 2019-08 2020- No 1{table BID Amoxicilli -Pot -Pot 0-12 10-22 t} n-Pot Clavulanate Clavulanate 00:00: 00:00 Clavulanat 875-125 MG 875-125 MG 00 :00 e 875-125 MG Promethazin Promethazin 2019- 2020- No Norah 1 tablet Common e HCl e HCl 4-28 05-03 [place] as needed Spirit 00:00: 00:00 for n/v - [facility]I 00 :00 [facility] Bupivicaine Bupivicaine 2019-0 No 4mL Common Holcomb Holcomb 4-06 Spirit 00:00: - [facility]I 00 [facility] Kenalog Kenalog 2020-0 No 40mg Common (Triamcinol (Triamcinol 4-06 S pirit one) one) 00:00: - CHI 00 [facility] Bupivicaine Bupivicaine 2020-0 No 4mL Common Holcomb Holcomb 4-06 Spirit 00:00: - [facility]I 00 [facility] Kenalog Kenalog 2020-0 No 40mg Common (Triamcinol (Triamcinol 4-06 S pirit one) one) 00:00: - [facility]I 00 [facility] Bupivicaine Bupivicaine 2020-0 No 4mL Common Holcomb Holcomb 4-06 Spirit 00:00: - [facility]I 00 [facility] Kenalog Kenalog 2020-0 No 40mg Common (Triamcinol (Triamcinol 4-06 S pirit one) one) 00:00: - CHI 00 [facility] Bupivicaine Bupivicaine 2020-0 No 4mL Common Holcomb Holcomb 4-06 Spirit 00:00: - [facility]I 00 [facility] Kenalog Kenalog 2020-0 No 40mg Common (Triamcinol (Triamcinol 4-06 S pirit one) one) 00:00: - CHI 00 [facility] Bupivicaine Bupivicaine 2020-0 No 4mL Common Holcomb Holcomb 4-06 Spirit 00:00: - [facility]I 00 [facility] Kenalog Kenalog 2020-0 No 40mg Common (Triamcinol (Triamcinol 4-06 S pirit one) one) 00:00: - CHI [facility] ondansetron 2020-0 Yes [id number] 4mg Take 1 Univers (ZOFRAN 3-11 tablet by ity of ODT) 4 mg 00:00: mouth [place] disintegrat 00 every 8 Medic al ing tablet (eight) Branch hours as needed for Nausea and Vomiting (N/V). benzonatate 2020-0 Yes [id number] 200mg Take 1 Univers 200 mg 3-11 capsule by ity of capsule 00:00: mouth 3 [place] 00 (three) Medical times Branch daily as needed for Cough for up to 20 doses. ibuprofen 2020-0 Yes [id number] 600mg Take 1 U nivers 600 mg 3-11 tablet by ity of tablet 00:00: mouth [place] 00 every 6 Medical (six) Branch hours as needed for Pain (scale 4-6). ondansetron 2020-0 Yes [id number] 4mg Take 1 Univers (ZOFRAN 3-11 tablet by ity of ODT) 4 mg 00:00: mouth [place] disintegrat 00 every 8 Medic al ing tablet (eight) Branch hours as needed for Nausea and Vomiting (N/V). benzonatate 2020-0 Yes [id number] 200mg Take 1 Univers 200 mg 3-11 capsule by ity of capsule 00:00: mouth 3 [place] 00 (three) Medical times Branch daily as needed for Cough for up to 20 doses. ibuprofen 2020-0 Yes [id number] 600mg Take 1 U nivers 600 mg [...] Pain Score 4-6, Start date: 07/09/18 16:24:00 [employer] Oxycodone 2017- No 5 mg, Memoria Hydrochlori -28 Route: PO, l de 5 MG 22:24: Drug form: Herm faina Oral Tablet 00 TAB, ONCE, Dosing Weight 139.409, kg, PRN Pain Score 4-6, Start date: 07/09/18 16:24:00 [employer] Promethazin 2017-08 No Notes: Do M emoria e 09-08 not give l 21:26: IV push. [place] (Same as: Phenergan) Lorazepam 2017-08 No Notes: Memori a 09-08 (Same as: l 21:26: Ativan) Dexamethaso 2017-08 No Notes: David katarzyna ne 09-08 Concentrat l 21:26: ion: [place] 00 4mg/ml Racepinephr 2017-08 No Notes: David katarzyna ine 09-08 (racepinep l 21:26: hrine [place] 00 *2.25% inh 0.5ml SOLN) (Same as:S2) Glycopyrrol [...] ne 09-08 Same as: l 21:26: Dilaudid [place] 00 Naloxone 2017-08 No Notes: Memoria 09-08 Same as l 21:26: Narcan [place] 00 Ephedrine 2017-08 No Notes: Memori a 09-08 final l 21:26: concentrat [place] 00 ion 5 mg/mL Acetaminoph 2017-08 No Notes: Max Memoria en 09-08 acetaminop l 21:26: hen 4000 [place] 00 mg/day (4 gm/day). (Same as: Tylenol [...] PRN Elevated BP, Start date: 07/09/18 15:26:00 [employer], Duration: 5 doses or times, Stop date: [...] Renal impairment " Hydromorpho 2017-08 No Notes: Davdi katarzyna ne 09-08 Same as: l 21:26: Dilaudid [place] 00 Naloxone 2017-08 No Notes: Memoria 09-08 Same as l 21:26: Narcan Ephedrine 2017-08 No Notes: Memori a 09-08 final l 21:26: concentrat [place] 00 ion 5 mg/mL Acetaminoph 2017-08 No Notes: Max Memoria en 09-08 acetaminop l 21:26: hen 4000 [place] 00 mg/day (4 gm/day). (Same as: Tylenol Extra Strength) Fentanyl 2017-08 No Notes: Memoria 09-08 (Same as: l 21:26: Sublimaze) [place] 00 Preservati ve free. Hydralazine 2017-08 No Notes: David katarzyna 09-08 (Same as: l 21:26: Apresoline [place] 00 ) Push over 5 minutes Labetalol 2017-08 No 10 mg, 2 David katarzyna - mL, Route: l 21:26: IVP, Drug form: INJ, Q5Min, Dosing Weight 139.409, kg, PRN Elevated BP, Start date: 07/09/18 15:26:00 [employer], Duration: 5 doses or times, Stop date: [...] 21:19: INJ, ONCE, Stop date: 07/09/18 15:19:00 [employer] ondansetron 2017-08 No Route: IV, Memoria (ANES) 09-08 Drug form: l 21:19: INJ, ONCE, Stop date: 07/09/18 15:19:00 [employer] ceFAZolin 2017-08 No Route: IV, Me moria (ANES) 09-08 Drug form: l 20:43: INJ, ONCE, Stop date: 07/09/18 14:43:00 [employer] lidocaine 2017-08 No Route: IV, Me moria (ANES) 09-08 Drug form: l 20:43: INJ, ONCE, Stop date: 07/09/18 14:43:00 [employer] propofol 2017-08 No Route: IV, Mem oria (ANES) 09-08 Drug form: l 20:43: INJ, ONCE, Stop date: 07/09/18 14:43:00 [employer] fentaNYL 2017-08 No Route: IV, Mem oria (ANES) 09-08 Drug form: l 20:43: INJ, ONCE, Stop date: 07/09/18 14:43:00 [employer] ceFAZolin 2017-08 No Route: IV, Me moria (ANES) 09-08 Drug form: l 20:43: INJ, ONCE, Stop date: 07/09/18 14:43:00 [employer] lidocaine 2017-08 No Route: IV, Me moria (ANES) 09-08 Drug form: l 20:43: INJ, ONCE, Stop date: 07/09/18 14:43:00 [employer] propofol 2017-08 No Route: IV, Mem oria (ANES) 09-08 Drug form: l 20:43: INJ, ONCE, Stop date: 07/09/18 14:43:00 [employer] fentaNYL 2017-08 No Route: IV, Mem oria (ANES) 09-08 Drug form: l 20:43: INJ, ONCE, Stop date: 07/09/18 14:43:00 [employer] metoclopram 2017-08 No Route: IV, Memoria debbie (ANES) 09-08 Drug form: l 20:38: INJ, ONCE, [place] Stop date: 07/09/18 14:38:00 [employer] famotidine 2017-08 No Route: IV, Thomas emoria (ANES) 09-08 Drug form: l 20:38: INJ, ONCE, [place] Stop date: 07/09/18 14:38:00 [employer] dexamethaso 2017-08 No Route: IV, Memoria ne (ANES) 09-08 Drug form: l 20:38: INJ, ONCE, [place] Stop date: 07/09/18 14:38:00 [employer] midazolam 2017-08 No Route: IV, Me moria (ANES) 09-08 Drug form: l 20:38: SOLN, [place] ONCE, Stop date: 07/09/18 14:38:00 [employer] metoclopram 2017-08 No Route: IV, Memoria debbie (ANES) 09-08 Drug form: l 20:38: INJ, ONCE, [place] 00 Stop date: 07/09/18 14:38:00 [employer] famotidine 2017-08 No Route: IV, Thomas emoria (ANES) 09-08 Drug form: l 20:38: INJ, ONCE, [place] 00 Stop date: 07/09/18 14:38:00 [employer] dexamethaso 2017-08 No Route: IV, Memoria ne (ANES) 09-08 Drug form: l 20:38: INJ, ONCE, [place] Stop date: 07/09/18 14:38:00 [employer] midazolam 2017-08 No Route: IV, Me moria (ANES) 09-08 Drug form: l 20:38: SOLN, [place] 00 ONCE, Stop date: 07/09/18 14:38:00 [employer] Lactated 2017-08 No Route: IV, Mem oria Ringers 09-08 Total l Injection 19:45: Volume: Kelly nn IV (ANES) 00 1,000, 1000 mL Start date: 07/09/18 13:45:00 [employer], Stop date: 07/09/18 14:45:00 [employer] Lactated 2017-08 No Route: IV, Mem oria Ringers 09-08 Total l Injection 19:45: Volume: Kelly nn IV (ANES) 00 1,000, 1000 mL Start date: 07/09/18 13:45:00 [employer], Stop date: 07/09/18 14:45:00 [employer] Famotidine 2017-08 No Notes: Memor ia 40 MG Oral 09-08 (Same as: l Tablet 19:37: Pepcid) [place] [Pepcid] 00 Famotidine 2017-08 No Notes: Memor ia 40 MG Oral 09-08 (Same as: l Tablet 19:37: Pepcid) [place] [Pepcid] 00 Celebrex 2017-08 No 200 mg, Memori a 09-08 Route: PO, l 19:00: Drug form: [place] MARITZA Brown CAP, Dosing Weight 140.909, kg, Start date: 07/09/18 13:00:00 [employer], Duration: 30 day, Stop date: 08/08/18 12:59:00 [employer] Lidocaine 2017-08 No Notes: Memori a Hydrochlori 09-08 Preservati l de 10 MG/ML 19:00: ve free. He rmann Injectable 00 (Same as: Solution Xylocaine MPF) Famotidine 2017-08 No Notes: Memor ia 09-08 (Same as: l 19:00: Pepcid) [place] 00 Can be dilute in 5-10cc NS IVP: Slow IV push over at least 2 minutes. Celebrex 2017-08 No 200 mg, Memori a 09-08 Route: PO, l 19:00: Drug form: [place] MARITZA Brown CAP, Dosing Weight 140.909, kg, Start date: 07/09/18 13:00:00 [employer], Duration: 30 day, Stop date: 08/08/18 12:59:00 [employer] Lidocaine 2017-08 No Notes: Memori a Hydrochlori - Preservati l de 10 MG/ML 19:00: ve free. He rmann Injectable 00 (Same as: Solution Xylocaine MPF) Famotidine 2017-08 No Notes: Memor ia - (Same as: l 19:00: Pepcid) [place] 00 Can be dilute in 5-10cc NS IVP: Slow IV push over at least 2 minutes. Zofran 2017-08 No 4 mg, Memoria 09-08 Route: l 18:53: IVP, Drug [place] 00 form: INJ, ONCE, Dosing Weight 139.409, kg, Priority: STAT, Start date: 07/09/18 12:53:00 [employer], Stop date: 07/09/18 12:53:00 [employer] Zofran 2017-08 No 4 mg, Memoria 09-08 Route: l 18:53: IVP, Drug [place] form: INJ, ONCE, Dosing Weight 139.409, kg, Priority: STAT, Start date: 07/09/18 12:53:00 [employer], Stop date: 07/09/18 12:53:00 [employer] Tylenol 2017-08 No 1,000 mg, Memor ia 09-08 Route: PO, l 18:20: ONCE, [place] Dosing Weight 140.909, kg, Priority: STAT, Start date: 07/09/18 12:20:00 [employer], Stop date: 07/09/18 12:20:00 [employer] Tylenol 2017-08 No 1,000 mg, Memor ia 09-08 Route: PO, l 18:20: ONCE, [place] 00 Dosing Weight 140.909, kg, Priority: STAT, Start date: 07/09/18 12:20:00 [employer], Stop date: 07/09/18 12:20:00 [employer] Insulin 2017-08 No Notes: Memoria Lispro 09-08 (Same as: l 18:18: Humalog ) Roll in palms of hands [...] Lactate date: 0.028 07/09/18 MEQ/ML 12:18:00 Injectable [employer], Solution Duration: 30 day, Stop date: 08/08/18 12:17:00 [employer], 2.75, m2 Insulin 2017-08 No Notes: Memoria Lispro 09-08 (Same as: l 18:18: Humalog ) [place] 00 Roll in palms of hands gently; Do not shake `vigorousl y. "Single Patient Use Only " WASTE: F/P - Black; E - Municipal Trash Bin Stable for 28 days at room temperatur e. Expires in days from ____Date Calcium 2017-08 No 1,000 mL, Memor ia Chloride 09-08 Rate: 25 l 0.0014 18:18: ml/hr, [place] MEQ/ML / 00 Infuse Potassium over: 40 Chloride hr, Route: 0.004 IV, Dosing MEQ/ML / Weight Sodium 140.909 Chloride kg, Total 0.103 Volume: MEQ/ML / 1,000, Sodium Start Lactate date: 0.028 07/09/18 MEQ/ML 12:18:00 Injectable [employer], Solution Duration: 30 day, Stop date: 08/08/18 12:17:00 [employer], 2.75, m2 ceFAZolin + 2017-08 No Notes: David katarzyna sterile 09-08 (Same As: l water 30 mL 12:00: Ancef, Herm faina 00 Kefzol) MEDICATION WASTE Product Size: 1000 mg Product Wasted: ___ mg Lactated 2017-08 No 1,000 mL, David katarzyna Ringers 09-08 Rate: KVO l Injection 12:00: rate, [place] IV 1,000 mL 00 Route: IV, Dosing Weight 140.909 kg, Total Volume: 1,000, Start date: 07/09/18 6:00:00 [employer], Duration: 30 day, Stop date: 08/08/18 5:59:00 [employer], 2.75, m2 ceFAZolin + 2017-08 No Notes: David katarzyna sterile 09-08 (Same As: l water 30 mL 12:00: Ancef, Herm faina 00 Kefzol) MEDICATION WASTE Product Size: 1000 mg Product Wasted: ___ mg Lactated 2017-08 No 1,000 mL, David katarzyna Ringers 09-08 Rate: KVO l Injection 12:00: rate, [place] IV 1,000 mL 00 Route: IV, Dosing Weight 140.909 kg, Total Volume: 1,000, Start date: 07/09/18 6:00:00 [employer], Duration: 30 day, Stop date: 08/08/18 5:59:00 [employer], 2.75, m2 Norvasc 2017-08 Yes See Memoria 09-07 Instructio l 18:43: ns, PO [place] 00 Daily, 0 Refill(s) Norvasc 2017-08 Yes See Memoria 09-07 Instructio l 18:43: ns, PO [place] 00 Daily, 0 Refill(s) Amlodipine 2017-08 Yes See Memoria 09-07 Instructio l 18:42: ns, PO [place] 00 Daily, 0 Refill(s) Amlodipine 2017-08 Yes See Memoria 09-07 Instructio l 18:42: ns, PO [place] 00 Daily, 0 Refill(s) amLODIPine amLODIPine 2017-08 [...] [facility] 19:40: [facility] gabapentin 2017- Yes 300 mg = 1 M emoria [...] Notes: Memoria 0-05 (Same l 11:34: as:MORPhin [place] 00 e Sulfate) Morphine 2017-08 No Notes: Memoria 0-05 (Same l 11:34: as:MORPhin [place] 00 e Sulfate) Dexamethaso 2017-08 No 8 mg, Memor ia ne 0-05 Route: IM, l 11:01: ONCE, Dosing Weight 144.091, kg, Priority: STAT, Start date: 05/16/18 6:01:00 CDT, Stop date: 05/16/18 6:01:00 CDT Zofran ODT 2017-08 No 4 mg, Memori a 0-05 Route: PO, l 11:01: Drug form: [place] TABDIS, ONCE, Dosing Weight 144.091, kg, Priority: [...] tablet Commo n [place] as needed [facility] Losartan Losartan Yes Norah 1 tablet C ommon Potassium-H Potassium-H [place] [facility] CTZ [facility] Hydrocodone Hydrocodone Yes Norah 1 tablet Common -Acetaminop -Acetaminop [place] as needed [facility] hen hen [facility] Adderall XR Adderall XR Yes Norah 1 capsule Common [place] in the [facility] morning [facility] Omeprazole Omeprazole Yes Norah 1 capsule Common [place] 30 minutes [facility] before [facility] Dicyclomine Dicyclomine Yes Norah 1 tablet Common HCl HCl [place] [facility] Omeprazole Omeprazole No QD Omeprazole 40 [...] Source Name Name influenza virus 2022-05-[address] [facility] vaccine, inactivated 15:57:00 Influenza, 2022-05-19 Completed [facility] injectable, 00:00:00 quadrivalent (afluria, fluzone) Influenza, 2022-05-19 Completed [facility] injectable, 00:00:00 quadrivalent (afluria, fluzone) Influenza, 2022-05-19 Completed [facility] injectable, 00:00:00 quadrivalent (afluria, fluzone) Influenza, 2022-05-19 Completed [facility] injectable, 00:00:00 quadrivalent (afluria, fluzone) COVID-19 Mobile [facility] 7 & 2021-05-06 Completed [facility] 00:00:00 COVID-19 Pfizer & 2021-05-06 Completed [facility] 00:00:00 (PURPLE-DILUTE) COVID-19 Mobile System 7 & 2021-05-06 [facility]:00 (PURPLE-DILUTE) COVID-19 Mobile System 7 & 2021-05-06 Completed [facility] [...] Completed [facility]:00 Kenmichel Beatty 2020-05-23 Completed [facility] (Triamcinolone) (Triamcinolone) 11:35:00 [facility] Kenalog Kenalog 2020-05-23 Completed [facility] (Triamcinolone) (Triamcinolone) 11:35:00 [facility] Kenalog Kenalog 2020-05-23 Completed [facility] (Triamcinolone) (Triamcinolone) 11:35:00 [facility] Kenalog Kenalog 2020-05-23 Completed [facility] (Triamcinolone) (Triamcinolone) 11:35:00 [facility] Kenalog Kenalog 2020-05-23 Completed [facility] - (Triamcinolone) (Triamcinolone) 11:35:00 [facility] Kenalog Kenalog 2020-05-23 Completed [facility] (Triamcinolone) (Triamcinolone) 11:35:00 [facility] Kenalog Kenalog 2020-05-23 Completed [facility] - (Triamcinolone) (Triamcinolone) 11:35:00 [facility] Bupivicaine Holcomb Bupivicaine Holcomb 2019-11-16 Completed [facility] - 11:23:00 [facility] Bupivicaine Holcomb Bupivicaine Holcomb 2019-11-16 Completed [facility] - 11:23:00 [facility] Bupivicaine Holcomb Bupivicaine Holcomb 2019-11-16 Completed [facility] - 11:23:00 [facility] Bupivicaine Holcomb Bupivicaine Holcomb 2019-11-16 Completed [facility] - 11:23:00 [facility] Bupivicaine Holcomb Bupivicaine Holcomb 2019-11-16 Completed [facility] - 11::00 [facility] Bupivicaine Holcomb Bupivicaine Holcomb 2019-11-16 Completed [facility] - 11::00 [facility] Bupivicaine Holcomb Bupivicaine Holcomb 2019-11-16 Completed [facility] - 11::00 [facility] Kenalog Kenalog 2019-11-16 Completed [facility] - (Triamcinolone) (Triamcinolone) 11:22:00 [facility] Kenalog Kenalog 2019-11-16 Completed [facility] - (Triamcinolone) (Triamcinolone) 11:22:00 [facility] Kenalog Kenalog 2019-11-16 Completed [facility] - (Triamcinolone) (Triamcinolone) 11:22:00 [facility] Kenalog Kenalog 2019-11-16 Completed [facility] - (Triamcinolone) (Triamcinolone) 11:22:00 [facility] Kenalog Kenalog 2019-11-16 Completed [facility] - (Triamcinolone) (Triamcinolone) 11:22:00 [facility] Kenalog Kenalog 2019-11-16 Completed [facility] - (Triamcinolone) (Triamcinolone) 11:22:00 [facility] Kenalog Kenalog 2019-11-16 Completed [facility] - (Triamcinolone) (Triamcinolone) 11:22:00 [facility] Fluzone Quadrivalent 2018-06-03 Completed [facility] 0.5 ML Intramuscular 14:35:00 Suspension Vital Signs Vital Name Observation Time Observation Value Comments Source Systolic blood 2023-03-27 178 mm[Hg] [place] of pressure 01:00:00 [facility] Diastolic blood 2023-03-27 111 mm[Hg] [facility] f pressure 01:00:00 [facility] Heart rate 2023-03-27 74 /min [facility] 01:00:00 [facility] Body temperature 2023-03-27 36.67 Chrissie [facility] 01:00:00 [facility] Oxygen saturation 2023-03-27 99 /min [facility] Arterial blood 01:00:00 [facility] by Pulse oximetry [place] Respiratory rate 2023-03-26 18 /min [facility] 21:22:00 [facility] Body height 2023-03-26 190.5 cm [facility] 21:22:00 [facility] Body weight 2023-03-26 150.141 kg [facility] 21:22:00 [facility] BMI 2023-03-26 41.37 kg/m2 [facility] 21:22:00 [facility] Body height 2023-03-13 190.5 cm [facility] 18:23:00 Body weight 2023-03-13 158 kg [facility] 18:23:00 BMI 2023-03-13 43.54 kg/m2 [facility] 18:23:00 HEIGHT 2022-11-14 184.2 cm 14:00:00 WEIGHT 2022-11-14 165.518 kg 14:00:00 HEIGHT 2022-11-14 184.2 cm 14:00:00 WEIGHT 2022-11-14 165.518 kg 14:00:00 Body height 2022-09-28 160 cm [facility] 21:52:00 Body weight 2022-09-28 158.759 kg [facility] 21:52:00 BMI 2022-09-28 62.00 kg/m2 [facility] 21:52:00 Body height 2022-09-20 190.5 cm [facility] 14:46:00 Body weight 2022-09-20 158.759 [facility] 14:46:00 BMI 2022-09-20 43.75 kg/m2 [facility] 14:46:00 Body height 2022-07-27 190.5 cm [facility] 14:41:00 Body weight 2022-07-27 158.305 kg [facility] 14:41:00 BMI 2022-07-27 43.62 kg/m2 [facility] 14:41:00 height 2022-06-22 72 [in_i] [facility] - 11:20:00 [facility] weight 2022-06-22 343 [lb_av] [facility] - 11:20:00 [facility] temperature 2022-06-22 96.5 [degF] [facility] - 11:20:00 [facility] bmi 2022-06-22 46.51 kg/m2 [facility] - 11:20:00 [facility] oximetry 2022-06-22 97 % [facility] - 11:20:00 [facility] respiratory rate 2022-06-22 18 /min [facility] 11:20[facility]00 [facility] blood pressure 2022-06-22 141 mm[Hg] [facility] - systolic 11:20:00 [facility] blood pressure 2022-06-22 74 mm[Hg] [facility] diastolic 11:20:00 [facility] Systolic blood 2022-05-16 110 mm[Hg] [facility] pressure 20:28:00 Diastolic blood 2022-05-16 72 mm[Hg] [facility] pressure 20:28:00 Heart rate 2022-05-16 60 /min [facility] 20:28:00 Body temperature 2022-05-16 36.11 Chrissie [facility] 20:17:00 Body height 2022-05-16 190.5 cm [facility] 20:17:00 Body weight 2022-05-16 158.305 kg [facility] 20:17:00 BMI 2022-05-16 43.62 kg/m2 [facility] 20:17:00 blood pressure 2021-04-06 121 mm[Hg] [facility] - systolic 14:30:00 [facility] blood pressure 2021-04-06 76 mm[Hg] [facility] - diastolic 14:30:00 [facility] height 2021-04-06 72 [in_i] [facility] - 14:30:00 [facility] weight 2021-04-06 319 [lb_av] [facility] - 14:30:00 [facility] temperature 2021-04-06 98 [degF] [facility] - 14:30:00 [facility] bmi 2021-04-06 43.26 kg/m2 [facility] - 14:30:00 [facility] height 2020-07-12 72 [in_i] [facility] - 16:30:00 [facility] weight 2020-07-12 318.3 [lb_av] [facility] - 16:30:00 [facility] temperature 2020-07-12 97.5 [degF] [facility] - 16:30:00 [facility] bmi 2020-07-12 43.16 kg/m2 [facility] - 16:30:00 [facility] oximetry 2020-07-12 97 % [facility] - 16:30:00 [facility] respiratory rate 2020-07-12 18 /min [facility] - 16:30:00 [facility] blood pressure 2020-07-12 129 mm[Hg] [facility] - systolic 16:30:00 [facility] blood pressure 2020-07-12 64 mm[Hg] [facility] - diastolic 16:30:00 [facility] height 2020-05-23 72 [in_i] [facility] - 11:20:00 [facility] weight 2020-05-23 314.4 [lb_av] [facility] - 11:20:00 [facility] temperature 2020-05-23 97.2 [degF] [facility] - 11:20:00 [facility] bmi 2020-05-23 42.64 kg/m2 [facility] - 11:20:00 [facility] oximetry 2020-05-23 98 % [facility] - 11:20:00 [facility] respiratory rate 2020-05-23 18 /min [facility] - 11:20:00 [facility] blood pressure 2020-05-23 140 mm[Hg] [facility] - systolic 11:20:00 [facility] blood pressure 2020-05-23 74 mm[Hg] [facility] - diastolic 11:20:00 [facility] Systolic blood 2023-01-07 167 mm[Hg] [facility] 21:28:57 Hospital Diastolic blood 2023-01-07 79 mm[Hg] [facility] pressure 21:28:57 [facility] Heart rate 2023-01-07 104 /min [facility] 21:28:57 [facility] Body temperature 2023-01-07 35.67 Chrissie [facility] 21:28:57 Hospital Respiratory rate 2023-01-07 16 /min [facility] 21:28:57 Hospital Oxygen saturation 2023-01-07 96 /min [facility] in Arterial blood 21:28:57 [facility] by Pulse oximetry Body height 2023-01-07 190.5 cm [facility] 03:49:11 [facility] Body weight 2023-01-07 162.751 kg [facility] 03:49:11 [facility] BMI 2023-01-07 44.85 kg/m2 [facility] 03:49:11 [facility] Systolic blood 2022-11-14 149 mm[Hg] [facility] pressure 14:13:00 [facility] Diastolic blood 2022-11-14 93 mm[Hg] [facility] pressure 14:13:00 [facility] Heart rate 2022-11-14 73 /min [facility] 14[facility]13:00 [facility] Body temperature 2022-11-[address] [facility] 14:00:00 [facility] Body height 2022-11-[address] [facility] 14:00:00 [facility] Body weight 2022-11-[address] [facility] 14:00:00 [facility] BMI 2022-11-14 48.81 kg/m2 [facility] 14:00:00 [facility] Respitory Rate 2022-05-19 [facility] Herm faina 14:30:00 Respitory Rate 2022-05-19 [facility] 14:00:00 Systolic (mm Hg) 2022-05-19 [facility] rmann 14:00:00 Diastolic (mm Hg) 2022-05-19 [facility] ermann 14:00:00 Respitory Rate 2022-05-19 [facility] Herm faina 13:00:00 Systolic (mm Hg) 2022-05-19 [facility] rmann 13:00:00 Diastolic (mm Hg) 2022-05-19 [facility] ermann 13:00:00 Temperature Oral 2022-05-19 98.3 F [facility] rmann (F) 12:36:32 Systolic (mm Hg) 2022-05-19 [facility] 12:00:00 Diastolic (mm Hg) 2022-05-19 [facility] 12:00:00 Temperature Oral 2022-05-19 97.4 F [facility] Harpreet rmann (F) 08:24:17 Temperature Oral 2022-05-19 98.5 F [facility] rmann (F) 03:59:28 Height 2022-05-17 190.5 cm [...] He rmann 00:29:00 Diastolic (mm Hg) 2022-05-13 [facility] ermann 00:29:00 Respitory Rate 2022-05-13 [facility] 00:29:00 Respitory Rate 2022-05-12 [facility] 18:10:00 Systolic (mm Hg) 2022-05-12 [facility] 18:10:00 Diastolic (mm Hg) 2022-05-12 [facility] ermann 18:10:00 Heart Rate 2022-05-12 [facility] 14:49:57 Systolic (mm Hg) 2022-05-12 [facility] 14:49:51 Diastolic (mm Hg) 2022-05-12 [facility] ermann 14:49:51 Heart Rate 2022-05-12 [facility] 14:49:51 Temperature Oral 2022-05-12 98.5 F [facility] rmann (F) 14:49:13 Respitory Rate 2022-05-12 [facility] [...] ermann 05:19:44 Temperature Oral 2021-10-10 98.7 F [facility] He rmann (F) 05:18:56 Respitory Rate 2021-10-10 [...] n 09:21:01 Temperature Oral 2021-10-09 98.4 F [facility] Harpreet rmann (F) 09:20:59 Systolic [...] n 23:44:00 Temperature Oral 2021-10-08 98.6 F [facility] Harpreet rmann (F) 23:44:00 Heart Rate 2021-10-05 [facility] 13:48:13 Respitory Rate 2021-10-05 [facility] 13:48:13 Systolic (mm Hg) 2021-10-05 [facility] 13:47:41 Diastolic (mm Hg) 2021-10-05 [facility] 13:47:41 Heart Rate 2021-10-05 [facility] 13:47:41 Temperature Oral 2021-10-05 99.2 F [facility] Harpreet rmann (F) 13:47:17 Heart Rate 2021-10-05 [facility] 09:39:43 Respitory Rate 2021-10-05 [facility] 09:39:43 Systolic (mm Hg) 2021-10-05 [facility] 09:39:35 Diastolic (mm Hg) 2021-10-05 [facility] 09:39:35 Temperature Oral 2021-10-05 98.4 F [facility] He rmann (F) 09:38:41 Respitory Rate 2021-10-05 [facility] 06:44:26 Systolic (mm Hg) 2021-10-05 [facility] 06:44:17 Diastolic (mm Hg) 2021-10-05 [facility] H ermann 06:44:17 Temperature Oral 2021-10-05 98.7 F [facility] Harpreet rmann (F) 06:42:51 Height 2021-10-03 190.5 cm [facility] 12:40:00 Weight 2021-10-03 [facility] 12:40:00 BMI Calculated 2021-10-03 [facility] 12:40:00 Height 2021-10-02 190.5 cm [facility] 16:30:00 Weight 2021-10-02 [facility] 16:30:00 BMI Calculated 2021-10-02 [facility] 16:30:00 Systolic (mm Hg) 2021-05-11 [facility]mann 13:50:00 Diastolic (mm Hg) 2021-05-11 [facility] ermann 13:50:00 Temperature Oral 2021-05-11 98.5 F [facility] Harpreet rmann (F) 13:50:00 Systolic (mm Hg) 2021-05-11 [facility] 12:22:00 Diastolic (mm Hg) 2021-05-11 [facility] ermann 12:22:00 Systolic (mm Hg) 2021-05-11 [facility] rmann 11:21:00 Diastolic (mm Hg) 2021-05-11 [facility] ermann 11:21:00 Respitory Rate 2021-05-11 [facility] 11:21:00 Respitory Rate 2021-05-11 [facility] 10:42:00 Respitory Rate 2021-05-11 [facility] 09:02:00 Temperature Oral 2021-05-11 98.4 F [facility] Harpreet rmann (F) 08:30:00 Heart Rate 2021-05-11 [facility] 06:50:00 Heart Rate 2021-05-11 [facility] 06:18:00 Heart Rate 2021-05-11 [facility] 00:55:00 Temperature Oral 2021-05-11 98.2 F [facility] Harpreet rmann (F) 00:55:00 BP Systolic 2018-10-02 155 mm[Hg] Location: E; [facility] 15:26:00 Position: Sitting BP Diastolic 2018-10-02 88 mm[Hg] Location: E; [facility] 15:26:00 Position: Sitting Height 2018-10-02 75 [...] [facility] 10:25:00 Systolic (mm Hg) 2018-07-10 [facility]mann 00:00:00 Diastolic (mm Hg) 2018-07-10 [facility] ermann 00:00:00 Respitory Rate 2018-07-10 [facility] faina 00:00:00 Systolic (mm Hg) 2018-07-09 [facility] rmann 23:45:00 Diastolic (mm Hg) 2018-07-09 [facility] H ermann 23:45:00 Respitory Rate 2018-07-09 [facility] faina 23:45:00 Systolic (mm Hg) 2018-07-09 [facility] rmann 23:30:00 Diastolic (mm Hg) 2018-07-09 [facility] ermann 23:30:00 Respitory Rate 2018-07-09 [facility] [...] BP Systolic 2018-06-03 136 mm[Hg] Location: LUE; [facility] 14:09:00 Position: Sitting BP Diastolic 2018-06-03 75 mm[Hg] Location: SH[facility]; [facility] 14:09:00 Position: Sitting Height 2018-06-03 75 [...] [facility] ermann 11:50:00 Heart Rate 2018-05-16 Magdalene Joyneran n 11:50:00 Respitory Rate 2018-05-16 Magdalene Joyner faina 11:50:00 Temperature Oral 2018-05-16 98.8 F Magdalene Mullins rmann (F) 10:56:00 Weight 2018-05-16 Magdalene Avitia n 10:56:00 Procedures Procedure Date / Time Performing Clinician Source Performed COMP. METABOLIC PANEL 2023-03-26 22:04:00 Magnolia Montes De Oca [facility] ([id number]) [facility] SEDIMENTATION RATE 2023-03-26 22:04:00 Magnolia Montes De Oca [facility] CBC WITH DIFF 2023-03-26 22:04:00 Magnolia Montes De Oca [facility] ASSIGNMENT OF BENEFITS 2023-03-26 21:41:01 Doctor Unassigned, [facility] CONSENT/REFUSAL FOR 2023-03-26 20:58:29 Doctor Unassigned, [facility] DIAGNOSIS AND TREATMENT [facility] CBC WITH PLATELET AND 2023-01-07 09:31:00 [facility] DIFFERENTIAL COMPREHENSIVE METABOLIC 2023-01-07 09:31:00 [facility] PANEL ESTIMATED GFR 2023-01-07 09:31:00 [facility] BLOOD CULTURE, AEROBIC & 2023-01-07 05:36:00 [facility] ANAEROBIC BLOOD CULTURE, AEROBIC & 2023-01-07 05:34:[address] [facility] [address] HEAD WO CONTRAST 2023-01-07 03:33:37 Karen Mendoza [facility] URINE CULTURE 2023-01-07 01:58:00 Karen Mendoza [facility] URINALYSIS SCREEN AND 2023-01-07 01:58:00 Karen Mendoza [facility] MICROSCOPY, WITH REFLEX TO CULTURE ABO AND RH CONFIRMATION BY 2023-01-07 00:55:00 Karen Mendoza [facility] PROTOCOL CTA ABD/PEL FOR BLEEDING 2023-01-07 00:48:48 Karen Mendoza [facility] CBC WITH PLATELET AND 2023-01-06 23:02:00 Karen Mendoza [facility] DIFFERENTIAL PROTHROMBIN TIME WITH INR 2023-01-06 23:02:00 Karen Mendoza [facility] PARTIAL THROMBOPLASTIN 2023-01-06 23:02:00 Karen Mendoza [facility] TIME (PTT) COMPREHENSIVE METABOLIC 2023-01-06 23:02:00 Karen Mendoza [facility] PANEL AMYLASE LEVEL 2023-01-06 23:02:00 Karen Mendoza [facility] LIPASE LEVEL 2023-01-06 23:02:00 Karen Mendoza [facility] TYPE AND SCREEN 2023-01-06 23:02:00 Karen Mendoza [facility] ESTIMATED GFR 2023-01-06 23:02:00 Karen Mendoza [facility] Injection, epidural, of 2022-05-18 17:43:21 David chris Cedeño blood or clot patch REFERRAL- REQUEST/RESPONSE 2021-03-30 05:01:00 Doctor Unassigned , [facility] Myringotomy 2020-10-10 00:00:00 [facility] Her jones [U] XRAY KNEE 4 OR MORE 2018-07-24 00:00:00 [facility] VWS RIGHT [id number] Emg/Ncv 2018-06-20 00:00:00 [facility] Sleep Lab - Sleep 2018-06-03 00:00:00 [facility] Split Night Ulnar nerve decompression 2017-08-12 00:00:00 Tx morial [place] Ulnar nerve decompression 2015-08-12 00:00:00 Tx morial [place] Operation [facility] Hemorrhoidectomy [facility] n Extraction of wisdom tooth Memor ial [place] Appendectomy [facility] History of Cubital tunnel [facility] [...] Medical Ce nter Vaccine (#1)] Future Scheduled 2023-04-07 Pneumococcal Vaccine: [facility] Test 01:15:51 Pediatrics (0 to 5 Years) and At-Risk Patients (6 to 64 Years) (1 - PCV) [code = Pneumococcal Vaccine: Pediatrics (0 to 5 Years) and At-Risk Patients (6 to 64 Years) (1 - PCV)] Future Scheduled 2023-04-07 Hepatitis C screening [facility] Test 01:15:51 (procedure) [code = 061963430] Future Scheduled 2023-04-07 COVID-19 VACCINE (3 - [facility] Test 01:15:51 Pfizer series) [code = COVID-19 VACCINE (3 - Pfizer series)] Future Scheduled 2023-04-07 INFLUENZA VACCINE (#[facility]) [facility] Test 01:15:51 [code = INFLUENZA VACCINE (#1)] Future Scheduled 2023-04-07 Pneumococcal Vaccine: [facility] Test 01:15:51 Pediatrics (0 to 5 Years) and At-Risk Patients (6 to 64 Years) (1 - PCV) [code = Pneumococcal Vaccine: Pediatrics (0 to 5 Years) and At-Risk Patients (6 to 64 Years) (1 - PCV)] Future Scheduled 2023-04-07 Hepatitis C screening [facility] Test 01:15:51 (procedure) [code = 925692620] Future Scheduled 2023-04-07 COVID-19 VACCINE (3 - [facility] Test 01:15:51 Pfizer series) [code = COVID-19 VACCINE (3 - Pfizer series)] Future Scheduled 2023-04-07 INFLUENZA VACCINE (#1) [facility] Test 01:15:51 [code = INFLUENZA VACCINE (#1)] Future Scheduled 2023-03-16 Pneumococcal Vaccine: [facility] Test 12:35:05 Pediatrics (0 to 5 Years) and At-Risk Patients (6 to 64 Years) (1 - PCV) [code = Pneumococcal Vaccine: Pediatrics (0 to 5 Years) and At-Risk Patients (6 to 64 Years) (1 - PCV)] Future Scheduled 2023-03-16 Hepatitis C screening [facility] Test 12:35:05 (procedure) [code = [id number]] Future Scheduled 2023-03-16 COVID-19 VACCINE (3 - [facility] Test 12:35:05 Pfizer series) [code = COVID-19 VACCINE (3 - Pfizer series)] Future Scheduled 2023-03-16 INFLUENZA VACCINE [code [facility] Test 12:35:05 = INFLUENZA VACCINE] Future Scheduled 2023-03-08 Pneumococcal Vaccine: [facility] Test 14:34:41 Pediatrics (0 to 5 Years) and At-Risk Patients (6 to 64 Years) (1 - PCV) [code = Pneumococcal Vaccine: Pediatrics (0 to 5 Years) and At-Risk Patients (6 to 64 Years) (1 - PCV)] Future Scheduled 2023-03-08 Hepatitis C screening [facility] Test 14:34:41 (procedure) [code = [id number]] Future Scheduled 2023-03-08 COVID-19 VACCINE (3 - [facility] Test 14:34:41 Pfizer series) [code = COVID-19 VACCINE (3 - Pfizer series)] Future Scheduled 2023-03-08 INFLUENZA VACCINE [code [facility] Test 14:34:41 = INFLUENZA VACCINE] Future Scheduled 2023-03-04 Pneumococcal Vaccine: [facility] Test 12:22:41 Pediatrics (0 to 5 Years) and At-Risk Patients (6 to 64 Years) (1 - PCV) [code = Pneumococcal Vaccine: Pediatrics (0 to 5 Years) and At-Risk Patients (6 to 64 Years) (1 - PCV)] Future Scheduled 2023-03-04 Hepatitis C screening [facility] Test 12:22:41 (procedure) [code = [id number]] Future Scheduled 2023-03-04 COVID-19 VACCINE (3 - [facility] Test 12:22:41 Pfizer series) [code = COVID-19 VACCINE (3 - Pfizer series)] Future Scheduled 2023-03-04 INFLUENZA VACCINE [code [facility] Test 12:22:41 = INFLUENZA VACCINE] Future Scheduled 2023-02-11 [facility]: [facility] Test 11:22:44 Pediatrics (0 to 5 Years) and At-Risk Patients (6 to 64 Years) (1 - PCV) [code = Pneumococcal Vaccine: Pediatrics (0 to 5 Years) and At-Risk Patients (6 to 64 Years) (1 - PCV)] Future Scheduled 2023-02-11 Hepatitis C screening [facility] Test 11:22:44 (procedure) [code = [id number]] Future Scheduled 2023-02-11 COVID-19 VACCINE (3 - [facility] Test 11:22:44 Pfizer series) [code = COVID-19 VACCINE (3 - Pfizer series)] Future Scheduled 2023-02-11 INFLUENZA VACCINE [code [facility] Test 11:22:44 = INFLUENZA VACCINE] Future Scheduled 2023-01-26 Pneumococcal Vaccine: [facility] Test 16:56:13 Pediatrics (0 to 5 Years) and At-Risk Patients (6 to 64 Years) (1 - PCV) [code = Pneumococcal Vaccine: Pediatrics (0 to 5 Years) and At-Risk Patients (6 to 64 Years) (1 - PCV)] Future Scheduled 2023-01-26 [facility] Test 16:56:13 (procedure) [code = [id number]] Future Scheduled 2023-01-26 COVID-19 VACCINE (3 - [facility] Test 16:56:13 Pfizer series) [code = COVID-19 VACCINE (3 - Pfizer series)] Future Scheduled 2023-01-26 INFLUENZA VACCINE [code [facility] Test 16:56:13 = INFLUENZA VACCINE] Future Scheduled 2022-12-12 COVID-19 VACCINE (#1) [facility] Test 13:32:14 [code = COVID-19 VACCINE (#1)] Future Scheduled 2022-12-12 INFLUENZA VACCINE [code [facility] Test 13:32:14 = INFLUENZA VACCINE] Future Scheduled 2022-12-12 COVID-19 VACCINE (#1) [facility] Test 13:32:14 [code = COVID-19 VACCINE (#1)] Future Scheduled 2022-12-12 INFLUENZA VACCINE [code [facility] Test 13:32:14 = INFLUENZA VACCINE] Future Scheduled 2022-09-18 COVID-19 VACCINE (#[facility]) [facility] 11:55:25 [code = COVID-19 VACCINE (#1)] Future Scheduled 2022-09-18 INFLUENZA VACCINE [[facility] Test 11:55:25 = INFLUENZA VACCINE] Future Scheduled 2022-09-18 COVID-19 VACCINE (#[facility]) [facility] Test 11:55:25 [code = COVID-19 VACCINE (#1)] Future Scheduled 2022-09-18 INFLUENZA VACCINE [code [facility] Test 11:55:25 = INFLUENZA VACCINE] Future Scheduled 2022-09-07 COVID-19 VACCINE (#1) [facility] Test 19:13:43 [code = COVID-19 VACCINE (#1)] Future Scheduled 2022-09-07 INFLUENZA VACCINE [code [facility] Test 19:13:43 = INFLUENZA VACCINE] Future [...] (12+)] Future Scheduled 2022-08-[address] [facility] Test 00:00:00 (12+) [code = DEPRESSION [facility] SCREENING (12+)] Future Scheduled 2022-07-28 COVID-19 VACCINE (#1) [facility] Test 16:56:35 [code = COVID-19 VACCINE (#1)] Future Scheduled 2022-07-28 INFLUENZA VACCINE [code [facility] Test 16:56:35 = INFLUENZA VACCINE] Future Scheduled 2022-07-28 COVID-19 VACCINE (#1) [facility] Test 16:56:35 [code = COVID-19 VACCINE (#1)] Future Scheduled 2022-07-28 INFLUENZA VACCINE [code [facility] Test 16:56:35 = INFLUENZA VACCINE] Future Scheduled 2022-04-13 HEPATITIS B VACCINES (1 [facility] Test 21:38:54 of 3 - 3-dose series) [code = HEPATITIS B VACCINES (1 of 3 - 3-dose series)] Future Scheduled 2022-04-13 COVID[facility]19 [facility]INE (#[facility] Test 21:38:54 [code = COVID-19 VACCINE (#1)] Future Scheduled 2022-04-13 INFLUENZA VACCINE [code [facility] Test 21:38:54 = INFLUENZA VACCINE] Future Scheduled 2022-04-13 HEPATITIS B VACCINES (1 [facility] Test 21:38:54 of 3 - 3-dose series) [code = HEPATITIS B VACCINES (1 of 3 - 3-dose series)] Future Scheduled 2022-04-13 COVID-19 VACCINE (#1) [facility] Test 21:38:54 [code = COVID-19 VACCINE (#1)] Future Scheduled 2022-04-13 INFLUENZA VACCINE [code [facility] Test 21:38:54 = INFLUENZA VACCINE] Future Scheduled 2022-04-13 HEPATITIS B VACCINES (1 [facility] Test 21:38:54 of 3 - 3-dose series) [code = HEPATITIS B VACCINES (1 of 3 - 3-dose series)] Future Scheduled 2022-04-13 COVID-19 VACCINE (#1) [facility] Test 21:38:54 [code = COVID-19 VACCINE (#1)] Future Scheduled 2022-04-13 INFLUENZA VACCINE [code [facility] Test 21:38:54 = INFLUENZA VACCINE] Future Scheduled 2022-04-13 HEPATITIS B VACCINES (1 [facility] Test 21:38:54 of 3 - 3-dose series) [code = HEPATITIS B VACCINES (1 of 3 - 3-dose series)] Future Scheduled 2022-04-13 COVID-19 VACCINE (#1) [facility] Test 21:38:54 [code = COVID-19 VACCINE (#1)] Future Scheduled 2022-04-13 INFLUENZA VACCINE [code [facility] Test 21:38:54 = INFLUENZA VACCINE] Future Scheduled 2022-04-13 HEPATITIS B VACCINES (1 [facility] Test 21:38:54 of 3 - 3-dose series) [code = HEPATITIS B VACCINES (1 of 3 - 3-dose series)] Future Scheduled 2022-04-13 COVID-19 VACCINE (#1) [facility] Test 21:38:54 [code = COVID-19 VACCINE (#1)] Future Scheduled 2022-04-13 INFLUENZA VACCINE [code [facility] Test 21:38:54 = INFLUENZA VACCINE] Future Scheduled 2022-04-13 HEPATITIS B VACCINES (1 [facility] Test 21:38:54 of 3 - 3-dose series) [code = HEPATITIS B VACCINES (1 of 3 - 3-dose series)] Future Scheduled 2022-04-13 COVID-19 VACCINE (#1) [facility] Test 21:38:54 [code = COVID-19 VACCINE (#1)] Future Scheduled 2022-04-13 INFLUENZA VACCINE [code [facility] Test 21:38:54 = INFLUENZA VACCINE] Future [...] [facility] Test 00:00:00 [code = 36667146] Medical Ce nter Future Scheduled 2015 Lipid panel (procedure) [facility] Test 00:00:00 [code = 42131499] Medical Ce nter Future Scheduled 2015 Lipid panel (procedure) [facility] Test 00:00:00 [code = 80662298] Medical Ce nter Future Scheduled 2015 Lipid panel (procedure) [facility] Test 00:00:00 [code = 24752720] Medical Ce nter Future Scheduled 2015 Lipid panel (procedure) [facility] Test 00:00:00 [code = 53876558] Medical Ce nter Future Scheduled 2015 Lipid panel (procedure) [facility] Test 00:00:00 [code = 82767886] Medical Ce nter Future Scheduled 2015 Lipid panel (procedure) [facility] Test 00:00:00 [code = 97353581] Medical Ce nter Future Scheduled 2015 Lipid panel (procedure) [facility] Test 00:00:00 [code = 45469377] Medical Ce nter Future Scheduled 2015 Lipid panel (procedure) [facility] Test 00:00:00 [code = 35048771] Medical Ce nter Future Scheduled 1999 DTAP/TDAP/TD [...] screening [facility] (procedure[facility] [code = 917061832] Future Scheduled [address] [facility] immunodeficiency [facility] Test 00:00:00 virus screening [facility] (procedure) [code = 199270297] Future Scheduled [address] Human immunodeficiency [facility] Test 00:00:00 virus screening [facility] (procedure) [code = 886891722] Future Scheduled [address] Human immunodeficiency [facility] Test 00:00:00 virus screening [facility] (procedure) [code = 239322904] Future Scheduled [address] Human immunodeficiency [facility] Test 00:00:00 virus screening [facility] (procedure) [code = 374701926] Future Scheduled COVID-19 VACCINE (1) [facility] Test [code = COVID-19 VACCINE (1)] Future Scheduled Hepatitis C screening [facility] Test (procedure) [code = 785859432] Future Scheduled INFLUENZA VACCINE [code [facility] Test = INFLUENZA VACCINE] Encounters Start End Encounter Admission Attending Care Care Encounter Source Date/Time Date/Time Type Type Clinicians Facility Department ID 2023-03-27 [facility] [id number] Common 08:24:00 Counts Include 234 [facility] [address] [facility] 2023-02-19 Outpatient [facility] [id number] [place] 08:16:07 [id number] [facility] 2023-02-18 Outpatient [facility] [id number] [place] 07:32:15 [id number] [facility] 2023-02-04 Outpatient [facility] [id number] UT 16:00:55 [id number] [facility] 2023-01-04 Outpatient [facility] [id number] UT 10:29:46 [id number] [facility] 2022-12-21 Outpatient [facility]quez[facility]OLTAN [facility] [id number] Common 09:37:00 Counts Include 234 [facility] [address] [facility] 2022-09-27 Outpatient [facility] ER [id number] UT 15:49:39 [id number] [facility] 2022-09-25 [facility] [id number] Common 10:35:01 Counts Include 234 [facility] 99[address] [facility] 2022-09-20 Outpatient [facility] [id number] [place] 09:01:19 [id number] [facility] 2022-09-18 Outpatient [facility] [id number] UT 13:05:14 [id number] [facility] 2022-09-04 Outpatient [facility] [id number] UT 09:48:26 [id number] [facility] 2022-09-03 Outpatient [facility] [id number] UT 10:22:47 [id number] [facility] 2022-08-15 Outpatient [facility] [id number] UT 08:54:00 [id number] [facility] 2022-07-30 Outpatient [facility] [id number] UT 09:03:26 [id number] [facility] 2022-07-27 Outpatient [facility] [id number] UT 09:39:00 [id number] [facility] 2022-06-22 Outpatient Vazquez, STLMLC STLMLC [id number] Common 11:03:01 Counts Include [facility] 2022-06-20 Outpatient [facility] [id number] UT 15:53:00 [id number] [facility] 2022-06-20 Outpatient Vazquez, STLMLC STLMLC [id number] Common 09:33:01 Counts Include [facility] 2022-06-19 Outpatient [facility] [id number] UT 15:00:31 [id number] [facility] 2022-06-12 Outpatient [facility] [id number] UT 09:35:34 [id number] [facility] 2022-05-25 Outpatient [facility] [id number] UT 13:39:31 [id number] [facility] 2021-10-25 Outpatient MIGUEL ANGEL, [facility] ANAY 7506 [facility] 11:23:00 LINDSEY 2021-09-28 Outpatient DAY, NOAH [facility] [id number] [place] 16:10:44 [facility] 2021-09-06 Outpatient Vazquez, STLMLC STLMLC [id number] Common 12:12:10 John [id number] [facility] 2021-09-06 Outpatient Vazquez, STLMLC STLMLC [id number] Common 12:10:54 John 74880 [facility] 2021-09-06 Outpatient Vazquez, STLMLC STLMLC [id number] Common 12:09:52 John 68739 [facility] 2021-09-06 Outpatient Vazquez, STLMLC STLMLC [id number] Common 11:54:05 Counts Include 234 [facility] 87413 [facility] 2021-09-06 [facility] [id number] Common 11:06:57 Counts Include 234 [facility] 65562 [facility] 2021-09-06 [facility] [id number] Common 11:06:47 Counts Include 234 [facility] 98[address] [facility] 2021-04-18 Outpatient STACY, [facility] [id number] PR 14:45:53 [facility] 2023-04-23 2023-04-23 Outpatient YUREINIEREL, [facility] ER [id number] [place] 15:15:00 15:15:00 [facility] 2023-04-23 2023-04-23 Outpatient NANET[place] [facility] [place] [id number] [place] 14:00:00 14:00:00 Health 2023-04-08 2023-04-08 Outpatient SFA SFA [id number] [place] 14:50:30 14:50:30 0828 F Bowie 2023-03-26 2023-03-26 Emergency X MONTES DE OCA, [facility] [id number] [facility] 16:24:00 20:05:00 MAGNOLIA busch of [facility] 2023-03-26 2023-03-26 Emergency Montes De Oca, [facility] 1.2.840.114 [id number] [facility] 16:24:00 20:05:00 Magnolia YANG 350.1.13.10 i [facility] 4.2.7.2.686 [facility] [id number] [address] 2023-03-13 2023-03-13 Office EUNICE Cullen 6400 1.2.840.114 [id number] [place] 13:00:00 13:52:59 Visit Manasa WARDNIN 350.1.13.58 [facility] 9.2.7.2.686 [id number] 5 2023-03-07 2023-03-07 Outpatient JERO, [facility] [id number] [place] 14:15:00 14:15:[address] Health 2023-02-14 2023-02-19 Inpatient YUDEANN, [facility] 7508 [facility] 09:24:00 17:51:00 SANCAK 2023-01-10 2023-01-10 Outpatient [facility] [id number] [place] 13:00:00 13:00:00 Karthik WILHELM 2023-01-06 2023-01-07 Emergency Karen Mendoza K. 1.2.840.1 [id number] Methodi 17:24:00 18:25:00 Julian Sexton [address]759.1.[address] [place], Aidan 3.430.2.7 Hospita .3.586324 l .8 2023-01-06 2023-01-07 Emergency Karen Mendoza K. 1.2.840.1 [id number] Methodi 17:24:00 18:25:00 Darshan Julian [address]92.1.[address] [place], A[place] 3.430.2.7 Hospita .3.255607 l .8 2023-01-06 2023-01-06 Travel 1.2.840.1 1.2.205.584 [id number] Methodi 00:00:00 00:00:[address] 3.430.2.7 0.2.7.3.698 Ho spita .3.471364 084.8 l .8 2023-01-06 2023-01-06 Travel 1.2.840.1 1.2.397.130 5789 665800 Methodi 00:00:00 00:00:[address] 3.430.2.7 0.2.7.3.698 Ho spita .3.047906 084.8 l .8 2022-11-14 2022-11-14 Office Cecil [facility] [id number] 14:30:00 15:33:44 Visit [facility] 2022-11-14 2022-11-14 Office CAROLYN Jacob [facility] [id number] 14:30:00 15:33:44 Visit [facility] 2022-09-28 2022-09-28 Office EUNICE Cullen 6400 1.2.840.114 [id number] [place] 15:00:00 16:43:[address] 350.1.13.58 Health 9.2.7.2.686 [id number] 5 2022-09-26 2022-09-26 Outpatient JERO, [facility] [id number] [place] 13:15:00 13:15:00 [facility] 2022-09-20 2022-09-21 Outpt Diag IE [facility] [id number] Memoria 19:41:00 05:59:00 Services Outpatient 03 l Tree Cedeño 2022-09-20 2022-09-20 Office EUNICE CULLEN 6400 1.2.840.114 [id number] [place] 08:45:00 08:45:[address] 350.1.13.58 Health 9.2.7.2.686 [id number] 5 2022-08-16 2022-08-16 Outpatient CAITLIN, [facility] [id number] [place] 14:30:00 14:30:00 [facility] 2022-08-01 2022-08-01 Outpatient CAITLIN, [facility] [id number] UT 11:00:00 11:00:00 [facility] 2022-07-27 2022-07-27 Office EUNICE Cullen 6400 1.2.840.114 [id number] [place] 08:30:00 09:48:[address] 350.1.13.58 Health 9.2.7.2.686 [id number] 5 2022-07-25 2022-07-25 (TEL) STLMLC STLMLC [id number] Co mmon 00:00:00 00:00:00 [facility] 2022-06-22 2022-06-22 (TEL) STLMLC STLMLC [id number] Co mmon 00:00:00 00:00:00 [facility] 2022-06-22 2022-06-22 OFFICE STLMLC STLMLC [id number] Co mmon 00:00:00 00:00:00 VISIT [facility] LEVEL 4 [facility] 2022-06-20 2022-06-20 Outpatient DAY, NOAH [facility] [id number] [place] 14:00:00 14:00:00 Health 2022-06-13 2022-06-13 Outpatient DAY, NOAH [facility] [id number] UT 13:15:00 13:15:00 Health 2022-06-06 2022-06-06 (TEL) STLC STLC [id number] Co mmon 00:00:00 00:00:00 [facility] 2022-06-06 2022-06-06 (TEL) STLC STLC [id number] Co mmon 00:00:00 00:00:00 [facility] 2022-05-16 2022-05-19 [facility] 4547 [id number] Memoria 21:39:42 16:40:00 n chace Davidson 07 [facility] 2022-05-17 2022-05-19 Outpatient E DAY, NOAH [facility] 750 7 [facility] 10:13:00 11:40:00 2022-05-16 2022-05-16 Office DAY, NOAH UTP 6400 1.2.840.114 1 [id number] PR 15:45:00 15:45:00 Visit CHRISTINE JOYCE 350.1.13.58 [facility] 9.2.7.2.686 [id number] 0 2022-05-12 2022-05-13 Emergency [facility] 30595 37420 Memoria 09:35:00 02:21:00 r [place] 74 [facility] 2022-05-12 2022-05-12 Emergency E ROBERTS, [facility] 2274 [facility] 03:16:00 21:21:00 SONIA 2022-03-21 2022-03-21 Outpatient DAY, NOAH [facility] [id number] UT 15:00:00 15:00:00 Health 2022-03-14 2022-03-14 Telephone Day, Noah [facility]TP 6400 1.2.840.114 [id number] [place] 00:00:00 00:00:[address] [place] [address] 350.1.13.58 Health 9.2.7.2.686 [id number] 0 2022-03-14 2022-03-14 Telephone Patki, UTP 6400 1.2.840.114 [id number] [place] 00:00:00 00:00:[address] 350.1.13.58 Health 9.2.7.2.686 [id number] 3 2022-03-14 2022-03-14 Telephone Day, Noah UTP 6400 1.2.840.114 [id number] UT 00:00:00 00:00:[address] [place] [address] 350.1.13.58 Health 9.2.7.2.686 [id number] 0 2022-03-13 2022-03-13 Telephone Day, Noah UTP 6400 1.2.840.114 [id number] UT 00:00:00 00:00:[address] 350.1.13.58 Health 9.2.7.2.686 [id number] 0 2022-01-01 2022-01-01 Telephone Day, Noah UTP 6400 1.2.840.114 [id number] UT 00:00:00 00:00:[address] 350.1.13.58 Health 9.2.7.2.686 [id number] 0 2021-12-28 2021-12-28 Telephone Day, Noah UTP 6400 1.2.840.114 [id number] UT 00:00:00 00:00:[address] 350.1.13.58 Health 9.2.7.2.686 [id number] 0 2021-12-06 2021-12-06 Telephone Day, Noah UTP 6400 1.2.840.114 [id number] UT 00:00:00 00:00:[address] 350.1.13.58 Health 9.2.7.2.686 [id number] 0 2021-11-27 2021-11-27 Telephone Day, Noah UTP 6400 1.2.840.114 [id number] UT 00:00:00 00:00:[address] 350.1.13.58 Health 9.2.7.2.686 [id number] 0 2021-11-01 2021-11-01 Telephone Day, Noah UTP 6400 1.2.840.114 [id number] UT 00:00:00 00:00:[address] 350.1.13.58 Health 9.2.7.2.686 [id number] 0 2021-10-30 2021-10-30 Telephone Rae Naranjo UTP 1.2.840 .114 [id number] UT 00:00:00 00:00:00 Rae Naranjo 350.1.13.58 Health MEDICAL 9.2.7.2.686 BUILDING [id number] 1 2021-10-27 2021-10-27 Telephone Day, Noah UTP 6410 1.2.840.114 [id number] [place] 00:00:00 00:00:[address] [place] [address] 350.1.13.58 Health 9.2.7.2.686 [id number] 8 2021-10-25 2021-10-26 Outpt Diag nullFlavo [facility] 87343 [id number] [facility] 18:11:00 04:59:00 Services r Outpatient [address] [place] [address] 2021-10-24 2021-10-24 Telephone Jose Sánchezika UTP 6400 1.2.840.1 14 [id number] UT 00:00:00 00:00:[address] SánchezN ST 350.1.13.58 Health 9.2.7.2.686 [id number] 3 2021-10-24 2021-10-24 Telephone Day, Noah UTP 6400 1.2.840.114 [id number] [place] 00:00:00 00:00:[address] 350.1.13.58 Health 9.2.7.2.686 [id number] 0 2021-10-20 2021-10-20 Office EUNICE Michelle 1.2.840.114 [id number] UT 13:30:00 14:18:52 Visit Geronimo MENCHACA 350.1.13.58 H [facility] MEDICAL 9.2.7.2.686 [facility] [id number] 1 2021-10-18 2021-10-19 Outpt Diag nullFlavo [facility] [address] 84192 [facility] 17:43:00 05:59:00 Services r Outpatient 00 l [facility] 2021-10-18 2021-10-18 Office Day, Noah DAWSON 6400 1.2.840.114 1 [id number] PR 10:00:00 10:15:[address] [place] [address] 350.1.13.58 Health 9.2.7.2.686 [id number] 0 2021-10-18 2021-10-18 Telephone Day, Noah UTP 6400 1.2.840.114 [id number] UT 00:00:00 00:00:[address] [place] [address] 350.1.13.58 Health 9.2.7.2.686 [id number] 0 2021-10-18 2021-10-18 Telephone Day, Noah UTP 6400 1.2.840.114 [id number] UT 00:00:00 00:00:[address] 350.1.13.58 Health 9.2.7.2.686 [id number] 0 2021-10-17 2021-10-17 Telephone Day, Noah UTP 6400 1.2.840.114 [id number] UT 00:00:00 00:00:[address] 350.1.13.58 Health 9.2.7.2.686 [id number] 0 2021-10-13 2021-10-13 Telephone Day, Noah UTP 6400 1.2.840.114 [id number] UT 00:00:00 00:00:[address] [place] [address] 350.1.13.58 Health 9.2.7.2.686 [id number] 0 2021-10-08 2021-10-10 Inpatient [facility] [address] [facility] 15:48:[address] 2021-10-08 2021-10-10 Inpatient E DAY, NOAH [facility] 2057 [facility] 19:58:00 09:48:00 2021-10-03 2021-10-05 Inpatient [facility] 00322 60915 [facility] 11:15:00 16:21:[address] 2021-10-03 2021-10-05 Inpatient DAY, NOAH [facility] 7505 [facility] 05:15:00 10:21:00 2021-10-04 2021-10-04 Telephone Day, Noah UTP 6400 1.2.840.114 [id number] PR 00:00:00 00:00:[address] [place] [address] 350.1.13.58 Health 9.2.7.2.686 [id number] 0 2021-09-28 2021-09-28 Telephone Day, Noah UTP 6400 1.2.840.114 [id number] PR 00:00:00 00:00:[address] [place] [address] 350.1.13.58 Health 9.2.7.2.686 [id number] 0 2021-09-28 2021-09-28 Telephone Dorothea Delgadillo UTP 6400 1.2.84 0.114 [id number] PR 00:00:00 00:00:[address] 350.1.13.58 Health 9.2.7.2.686 [id number] 3 2021-09-22 2021-09-22 Telephone Day, Noah UTP 6400 1.2.840.114 [id number] PR 00:00:00 00:00:[address] [place] [address] 350.1.13.58 Health 9.2.7.2.686 [id number] 0 2021-09-20 2021-09-20 Telephone Day, Noah UTP 6400 1.2.840.114 [id number] PR 00:00:00 00:00:[address] 350.1.13.58 Health 9.2.7.2.686 [id number] 7 2021-09-18 2021-09-18 Telephone Amelia Cameron UTP 6400 1.2.840.11 4 [id number] PR 00:00:00 00:00:[address] 350.1.13.58 Health 9.2.7.2.686 [id number] 5 2021-09-07 2021-09-07 Office Patkenji, UTP 6400 1.2.840.114 [id number] [place] 13:30:00 14:35:[address] 350.1.13.58 Health 9.2.7.2.686 [id number] 3 2021-09-07 2021-09-07 Telephone Stacy, UTP 6400 1.2.840.114 134 [id number] PR 00:00:00 00:00:[address] 350.1.13.58 Health 9.2.7.2.686 [id number] 3 2021-09-05 2021-09-05 Telephone Stacy, UTP 6400 1.2.840.114 134 [id number] PR 00:00:00 00:00:[address] 350.1.13.58 Health 9.2.7.2.686 [id number] 3 2021-09-03 2021-09-03 Telephone Patkenji, UTP 6400 1.2.840.114 133 [id number] PR 00:00:00 00:00:[address] 350.1.13.58 Health 9.2.7.2.686 [id number] 3 2021-08-02 2021-08-02 Telephone Patkenji, UTP 6400 1.2.840.114 133 [id number] UT 00:00:00 00:00:[address] 350.1.13.58 Health 9.2.7.2.686 [id number] 3 2021-05-18 2021-05-18 Orders Brii Howard UTP 6400 1.2.840.114 [id number] UT 00:00:00 00:00:[address] 350.1.13.58 Health 9.2.7.2.686 [id number] 3 2021-05-18 2021-05-18 Orders Patkenji, UTP 6400 1.2.840.114 [id number] UT 00:00:00 00:00:[address] 350.1.13.58 Health 9.2.7.2.686 [id number] 3 2021-05-15 2021-05-15 Telephone Stacy, UTP 6400 1.2.840.114 127 [id number] UT 00:00:00 00:00:[address] 350.1.13.58 Health 9.2.7.2.686 [id number] 3 2021-05-11 2021-05-11 [facility] 61128 78285 [facility] 00:42:19 14:08:[address] 2021-05-11 2021-05-11 (TEL) [facility] [id number] Co mmon 00:00:00 00:00:00 [facility] 2021-05-09 2021-05-09 Telephone Stacy, UTP 6400 1.2.840.114 127 [id number] UT 00:00:00 00:00:[address] 350.1.13.58 Health 9.2.7.2.686 [id number] 3 2021-05-08 2021-05-08 Telephone Stacy, UTP 6400 1.2.840.114 127 [id number] UT 00:00:00 00:00:[address] 350.1.13.58 Health 9.2.7.2.686 [id number] 3 2021-05-08 2021-05-08 Telephone Evelyneki, UTP 6400 1.2.840.114 127 [id number] UT 00:00:00 00:00:[address] 350.1.13.58 Health 9.2.7.2.686 [id number] 3 2021-05-08 2021-05-08 Telephone Patki, UTP 6400 1.2.840.114 127 [id number] UT 00:00:00 00:00:00 Junior JOYCE 350.1.13.58 Health 9.2.7.2.686 [id number] 3 2021-05-03 2021-05-03 Office EUNICE Kumar 6400 1.2.840.114 [id number] UT 13:38:06 14:42:46 Visit Junior RUVALCABA.1.13.58 Health 9.2.7.2.686 [id number] 3 2021-05-03 2021-05-03 Office EUNICE Kumar 6400 1.2.840.114 [id number] UT 13:38:06 14:42:46 Visit Junior RUVALCABA.1.13.58 Health 9.2.7.2.686 [id number] 3 2021-04-18 2021-04-18 Office EUNICE Kumar 6400 1.2.840.114 [id number] UT 13:09:45 14:44:18 Visit Junior JOYCE 350.1.13.58 Health 9.2.7.2.686 [id number] 3 2021-04-18 2021-04-18 Office EUNICE Kumar 6400 1.2.840.114 [id number] UT 13:09:45 14:44:18 Visit Junior RUVALCABA.1.13.58 Health 9.2.7.2.686 [id number] 3 2021-04-06 2021-04-06 OFFICE STLC STLMLC [id number] Co mmon 00:00:00 00:00:00 VISIT EST Spir it PT LEVEL 3 - [facility] 2021-04-06 2021-04-06 (TEL) STLMLC STLMLC [id number] Co mmon 00:00:00 00:00:00 [facility] 2021-03-31 2021-03-31 (TEL) STLMLC STLMLC [id number] Co mmon 00:00:00 00:00:00 [facility] 2021-03-30 2021-03-30 Orders Doctor AICHA 1.2.840.114 [id number] 00:00:00 00:00:00 Only Unassigned, ABDULKADIR 350.1.13.10 [place] [facility] 4.2.7.2.686 [id number] [id number] 2021-03-30 2021-03-30 Orders Doctor AICHA 1.2.840.114 [id number] Univers 00:00:00 00:00:00 Only Unassigned, ABDULKADIR 350.1.13.10 [place] of [place] [facility] 4.2.7.2.686 Norberto as [id number] [place] [address] [place] 2021-03-21 2021-03-21 Ancillary 1, Gal [facility] 1.2.840.114 [id number] 14:21:34 15:15:15 Visit Audio Sound Y 350.1.13.10 Suite [facility] 4.2.7.2.686 BANK [id number] BLDG. 141 2021-03-21 2021-03-21 [facility] [id number] Univers 13:45:00 13:45:00 FABY [facility] 2021-01-17 2021-01-17 Emergency X [facility] ERT [id number] Univers 19:28:00 19:28:00 LAURENCE [facility] 2020-11-21 2020-11-21 Emergency [facility] ERT [id number] Univers 15:51:00 15:51:00 [facility] 2020-07-20 2020-07-20 (TEL) STLMLC STLMLC [id number] Co mmon 00:00:00 00:00:00 Spirit - [facility] 2020-07-12 2020-07-12 OFFICE STLMLC STLMLC [id number] Co mmon 00:00:00 00:00:00 VISIT EST Spir it PT LEVEL 3 - [facility] 2020-05-23 2020-05-23 OFFICE STLMLC STLMLC [id number] Co mmon 00:00:00 00:00:00 VISIT EST Spir it PT LEVEL 3 - [facility] 2020-02-24 2020-02-24 [facility] [id number] Common 14:42:00 14:42:[address] [facility] 2020-02-22 2020-02-22 [facility] [id number] Common 13:51:00 13:51:[address] [facility] 2019-12-10 2019-12-10 [facility] [id number] Common 15:39:00 15:39:[address] [facility] 2019-12-08 2019-12-08 [facility] [id number] Common 13:40:00 13:40:[address] [facility] 2019-12-07 2019-12-07 [facility] [id number] Common 12:05:00 12:05:[address] [facility] 2019-11-16 2019-11-16 [facility] [id number] Common 11:00:00 11:00:00 t Bone Bone and Spiri t and Joint Joint - [facility] 2019-10-21 2019-10-21 Emergency X Blaire [facility] ERT [id number] Univers 11:24:16 14:51:00 ity of [facility] 2019-09-29 2019-09-29 [facility] [id number] Common 09:21:00 09:21:00 t Bone Bone and Spiri t and Joint [facility] - [facility] 2019-09-21 2019-09-21 [facility] [id number] Common 14:00:00 14:00:00 t Bone Bone and Spiri t and Joint Joint - [facility] 2019-03-13 2019-03-13 Appointmen EUNICE LICONA [id number] [place] 09:00:00 09:00:00 t; [facility]IG[facility] 2018-10-02 2018-10-02 [facility] [id number] [place] 15:00:00 15:00:00 t; Asher JONES i, M.D. ans POURAN, M.D. 2018-09-25 2018-09-25 [facility] MARCIALLa [facility] [id number] [place] 10:30:00 10:30:00 t; BRANT CEJA, SHANE Health and Valery GUO, SHANE Wellness [facility] 2018-09-22 2018-09-22 [facility] [id number] [place] 15:30:00 15:30:00 t; Asher JONES i, M.D. ans POURAN, M.D. 2018-08-22 2018-08-22 [facility] [id number] [place] 09:30:00 09:30:00 t; Lesa BRYANT savannah Rios M.D. 2018-07-29 2018-07-29 [facility] [id number] [place] 14:30:00 14:30:00 t; Lesa BRYANT savannah Rios M.D. 2018-07-25 2018-07-25 [facility] [id number] [place] 10:30:00 10:30:00 t; Lesa BRITT [facility] savannah Monk M.D. 2018-07-22 2018-07-22 [facility] [id number] [place] 11:15:00 11:15:00 t; Lesa BRYANT [facility] Physici TAMMY, Orthopedics savannah BRYANT M.D. 2018-07-15 2018-07-15 [facility] [id number] [place] 10:30:00 10:30:00 t; Lesa BRYANT [facility] Physici TAMMY, Orthopedics savannah BRYANT M.D. 2018-07-09 2018-07-10 [facility] [id number] [facility] 18:05:00 00:00:00 Surgery r [place] 03 [place] 2018-07-09 2018-07-09 [facility] [id number] [place] 13:00:00 13:00:00 t; Lesa BRYANT savannah Rios M.D. 2018-06-30 2018-06-30 [facility] [id number] [place] 10:15:00 10:15:00 t; Lesa BRYANT [facility] Valery MUNOZ, Orthopedics savannah BRYANT M.D. 2018-06-24 2018-06-24 Outpatient nullFlavo [facility] [id number] Memoria 00:15:00 05:59:00 r [place] 02 [place] 2018-06-20 2018-06-20 [facility] [id number] [place] 13:40:00 13:40:00 t; SHANE MONROE [facility] P hysigeovanni ROTH, Orthopedics a boyd MONROE NP 2018-06-19 2018-06-19 [facility] [id number] [place] 08:15:00 08:15:00 t; GEOVANNA FOLEY D.O. Physici KERRY, ans D.OClemente 2018-06-17 2018-06-17 [facility] [id number] [place] 15:45:00 15:45:00 t; Lesa BRYANT [facility] Valery MUNOZ, Orthopedics savannah BRYANT M.D. 2018-06-03 2018-06-03 [facility] [id number] [place] 13:45:00 13:45:00 t; GEOVANNA FOLEY D.O. [facility] savannah Vora.OClemente 2018-05-16 2018-05-16 [facility] [id number] Memoria 10:52:00 13:34:00 r [place] 01 [place] Results Test Description Test Time Test Comments Results Result Comments Source SEDIMENTATION RATE 2023-03-26 23:40:46 Test Item Value Reference Range Interpretation Comme nts ESR (test code = 53887-2) 8 See_Comment [ Automated message] The system which generated this result transmitted ref erence range: 0 - 10 mm/HR. The r eference range was not used to int erpret this result as normal/abnor mal. Lab Interpretation (test code = Normal 63961-3) [facility]. METABOLIC PANEL ([id number])2023-03-26 23:32:47 Test Item Value Reference Range Interpretation Comments NA (test code = 141 mmol/L 135-145 8135829136) K (test code = 4.0 mmol/L 3.5-5.0 3999362812) CL (test code = 108 mmol/L 98-108 3649488915) CO2 TOTAL (test code 25 mmol/L 23-31 = 3928951434) AGAP (test code = 8 2-16 0657852950) BUN (test code = 10 mg/dL 7-23 6003593364) GLUCOSE (test code = 101 mg/dL 70-110 5067120234) CREATININE (test code 1.04 mg/dL 0.60-1.25 = 0271985966) TOTAL BILI (test code 0.4 mg/dL 0.1-1.1 = 8516481892) CALCIUM (test code = 9.1 mg/dL 8.6-10.6 4814354106) T PROTEIN (test code 7.5 g/dL 6.3-8.2 = 1581534118) ALBUMIN (test code = 4.2 g/dL 3.5-5.0 6790935092) ALK PHOS (test code = 113 U/L 34-122 8557175321) ALTv (test code = 42 U/L 5-50 2-6) AST(SGOT) (test code 27 U/L 13-40 = 0094155723) eGFR (test code = 78.3 mL/min/1.73m2 4257338558) RYNE (test code = RYNE) Association of Glomerular Filtration Rate (GFR) and Staging of Kidney Disease* + + +- +| GFR (mL/min/1.73 m2) ?| With Kidney Damage ?| ?Without Kidney Damage+ ------+ ----+ ------+| ?>90 ?| ?Stage one ?| ? Normal ?+ -+ + -+| ?60-89 ?| ?Stage two ?| ? Decreased GFR ? + + +- +| ?30-59 ?| ?Stage three ?| ? Stage three ? + + +- +| ?15-29 ?| ?Stage four ? | ? Stage four ?+ -+ + -+| ?<15 (or dialysis) ? ?| ?Stage five ? | ? Stage five ?+ -+ + -+ *Each stage assumes the associated GFR level has been in effect for at least three months. ?Stages 1 to 5, with or without kidney disease, indicate chronic kidney disease. Notes: Determination of stages one and two (with eGFR >59mL/min/1.73 m2) requires estimation of kidney damage for at least three months as defined by structural or functional abnormalities of the kidney, manifested by either:Pathological abnormalities or Markers of kidney damage (including abnormalities in the composition of the blood or urine or abnormalities in imaging tests). [facility] WITH [id number] 22:51:22 Test Item Value Reference Range Interpretation Comments WBC (test code = 6.03 See_Comment [Automated 4363-2) message] The sy stem which generated this result transmitted reference range : 4.20 - 10.70 10*3/?L. The reference range was not used to interpret this result as normal/abnormal . RBC (test code = 4.87 See_Comment [Automated 540-8) message] The sy stem which generated this result transmitted reference range : 4.26 - 5.52 10*6/?L. The reference range was not used to interpret this result as normal/abnormal . HGB (test code = 13.7 g/dL 12.2-16.4 718-7) HCT (test code = 42.9 % 38.4-49.3 4544-3) MCV (test code = 88.1 fL 81.7-95.6 787-2) MCH (test code = 28.1 pg 26.1-32.7 785-6) MCHC (test code = 31.9 g/dL 31.2-35.0 786-4) RDW-SD (test code = 47.2 fL 38.5-51.6 62034-0) RDW-CV (test code = 14.6 % 12.1-15.4 788-0) PLT (test code = 189 See_Comment [Automated 777-3) message] The sy stem which generated this result transmitted reference range : 150 - 328 10*3/ ?L. The reference r caleb was not used to interpret this result as normal/abnormal . MPV (test code = 11.1 fL 9.8-13.0 52020-8) NRBC/100 WBC (test 0.0 See_Comment [Automat ed code = 3987014886) message] The system which generated this result transmitted reference range : 0.0 - 10.0 /100 WBCs. The refer ence range was not u sed to interpret th is result as normal/abnormal . NRBC x10^3 (test code See_Comment [Auto mated = 0072702679) message] The s ystem which generated this result transmitted reference range : 10*3/?L. The reference range was not used to interpret this result as normal/abnormal . GRAN MAT (NEUT) % 43.5 % (test code = 770-8) IMM GRAN % (test code 0.20 % = 2404836892) LYMPH % (test code = 36.7 % 736-9) MONO % (test code = 6.1 % 5905-5) EOS % (test code = 12.8 % 713-8) BASO % (test code = 0.7 % 706-2) GRAN MAT x10^3(ANC) 2.63 10*3/uL 1.99-6.95 (test code = 4266520000) IMM GRAN x10^3 (test 0.00-0.06 code = 1428834998) LYMPH x10^3 (test code 2.21 10*3/uL 1.09-3.23 = 731-0) MONO x10^3 (test code 0.37 10*3/uL 0.36-1.02 = 742-7) EOS x10^3 (test code = 0.77 10*3/uL 0.06-0.53 H 711-2) BASO x10^3 (test code 0.04 10*3/uL 0.01-0.09 = 704-7) Lab Interpretation Abnormal (test code = 05623-2) [facility]2023-05-29 02:15:00 Test Item Value Reference Range Interpretation Comments Urine culture (test SEE COMMENT Bacteriu katarzyna screen code = 0086475) negative. [facility]2023-05-29 02:15:00 Test Item Value Reference Range Interpretation Comments Urine culture (test SEE COMMENT Bacteriu katarzyna screen code = 2625152) negative. [facility]2023-05-29 02:15:00 Test Item Value Reference Range Interpretation Comments Urine culture (test SEE COMMENT Bacteriu katarzyna screen code = 3711377) negative. [facility]2023-05-29 02:15:00 Test Item Value Reference Range Interpretation Comments Urine culture (test SEE COMMENT Bacteriu katarzyna screen code = 4929708) negative. [facility]2023-05-29 02:15:00 Test Item Value Reference Range Interpretation Comments Urine culture (test SEE COMMENT Bacteriu katarzyna screen code = 2614497) negative. [facility]2023-05-29 02:15:00 Test Item Value Reference Range Interpretation Comments Urine culture (test SEE COMMENT Bacteriu katarzyna screen code = 3926659) negative. [facility]2023-05-29 02:15:00 Test Item Value Reference Range Interpretation Comments Urine culture (test SEE COMMENT Bacteriu katarzyna screen code = 5836732) negative. [id number] 21:10:35 Test Item Value Reference Range Interpretation [...] mastoideum, similar to prior CT temporal bone. [facility] AND [id number] 06:16:00 Test Item Value Reference Range Interpretation Comments UA Color (test code = Yellow *NA*(05/19/22 UA Color) 1:16 AM) [facility] AND [id number] 06:16:00 Test Item Value Reference Range Interpretation Comments UA Turbidity (test code = Clear (05/19/22 1:16 UA Turbidity) AM) [facility] AND [id number] 06:16:00 Test Item Value Reference Range Interpretation Comments UA Spec Grav (test code = UA Spec 1.010 1 Grav) [facility] AND [id number] 06:16:00 Test Item Value Reference Range Interpretation Comments UA pH (test code = UA pH) 6.0 1 5.0-8.0 [facility] AND [id number] 06:16:00 Test Item Value Reference Range Interpretation Comments UA Protein (test code = UA Negative mg/dL Protein) [facility] AND [id number] 06:16:00 Test Item Value Reference Range Interpretation Comments UA Glucose (test code = UA Negative mg/dL Glucose) [facility] AND [id number] 06:16:00 Test Item Value Reference Range Interpretation Comments UA Ketones (test code = UA Negative mg/dL Ketones) [facility] AND [id number] 06:16:00 Test Item Value Reference Range Interpretation Comments UA Bili (test code = Negative *NA*(05/19/22 UA Bili) 1:16 AM) [facility] AND [id number] 06:16:00 Test Item Value Reference Range Interpretation Comments UA Blood (test code = Negative (05/19/22 1:16 UA Blood) AM) [facility] AND [id number] 06:16:00 Test Item Value Reference Range Interpretation Comments UA Urobilinogen (test code = UA 0.2 0.1-1.0 Urobilinogen) [facility] AND [id number] 06:16:00 Test Item Value Reference Range Interpretation Comments UA Nitrite (test code Negative (05/19/22 1:16 = UA Nitrite) AM) [facility] AND [id number] 06:16:00 Test Item Value Reference Range Interpretation Comments UA Leuk Est (test Negative (05/19/22 1:16 code = UA Leuk Est) AM) [facility] AND [id number] 06:16:00 Test Item Value Reference Range Interpretation Comments UA Sq Epi (test code = UA Sq Epi) Rare /LPF [facility] AND [id number] 06:16:00 Test Item Value Reference Range Interpretation Comments UA WBC (test code = no gt See_Comment [Automa leydi message] The UA WBC) system which ge nerated this result transmit leydi reference range : <=5. The reference range was not used to interpr et this result as krishna l/abnormal. [facility] AND [id number] 06:16:00 Test Item Value Reference Range Interpretation Comments UA RBC (test code = 1 See_Comment [Automa leydi message] The UA RBC) system which ge nerated this result transmit leydi reference range : <=2. The reference range was not used to interpr et this result as krishna l/abnormal. [facility] HospitalannCARDIAC [id number] 03:27:00 Test Item Value Reference Range Interpretation Comments HS Troponin I Baseline (test code = HS 48 Troponin I Baseline) [facility] NewsBreakAC [id number] 03:18:00 Test Item Value Reference Range Interpretation Comments HS Troponin I (test code = HS Troponin 59 I) [facility] eMinor [id number] 03:18:00 Test Item Value Reference Range Interpretation Comments Phosphorus (test code = Phosphorus) 2.7 2.5-4.5 [facility] [employer] [id number] 03:18:00 Test Item Value Reference Range Interpretation Comments Magnesium Lvl (test code = Magnesium 2.2 1.8-2.4 Lvl) [facility] LiveOpsPARATHYROID [id number] 03:18:00 Test Item Value Reference Range Interpretation Comments Ca Ion WB (test code = Ca Ion WB) 1.07 1.05-1.25 [facility] TellApartROID [id number] 03:18:00 Test Item Value Reference Range Interpretation Comments Ca Ion at pH 7.4 WB (test code = Ca Ion 1.09 1.05-1.25 at pH 7.4 WB) [facility] NewsBreak [id number] 01:30:00 Test Item Value Reference Range Interpretation Comments HS Troponin I 1 Hr (test code = HS 41 Troponin I 1 Hr) [facility] News[employer] [id number] 01:30:00 Test Item Value Reference Range Interpretation Comments HS Troponin I 0 to 1 xxxxxxx (05/18/22 8:30 Hour Delta (test code = PM) HS Troponin I 0 to 1 Hour Delta) [facility] eMin[employer] [id number] 01:30:00 Test Item Value Reference Range Interpretation Comments Glucose Lvl (test code = Glucose Lvl) 107 70-99 [facility] [employer] [id number] 01:30:00 Test Item Value Reference Range Interpretation Comments BUN (test code = BUN) 18 - [facility] e[employer] [id number] 01:30:00 Test Item Value Reference Range Interpretation Comments Creatinine Lvl (test code = Creatinine 1.37 0.50-1.40 Lvl) [facility] e[employer]or [id number] 01:30:00 Test Item Value Reference Range Interpretation Comments Sodium Lvl (test code = Sodium Lvl) 137 135-145 [place] 261572-10-08 01:30:00 Test Item Value Reference Range Interpretation Comments Potassium Lvl (test code = Potassium 3.8 3.5-5.1 Lvl) [place] 261572-10-08 01:30:00 Test Item Value Reference Range Interpretation Comments Chloride Lvl (test code = Chloride Lvl) 107 95-109 [place] 261572-10-08 01:30:00 Test Item Value Reference Range Interpretation Comments CO2 (test code = CO2) 25 24-32 [place] 261572-10-08 01:30:00 Test Item Value Reference Range Interpretation Comments Calcium Lvl (test code = Calcium Lvl) 9.7 8.5-10.5 [place] 261572-10-08 01:30:00 Test Item Value Reference Range Interpretation Comments Total Protein (test code = Total 7.6 6.4-8.4 Protein) [place] [id number] 01:30:00 Test Item Value Reference Range Interpretation Comments Albumin Lvl (test code = Albumin Lvl) 3.8 3.5-5.0 [place] 261572-10-08 01:30:00 Test Item Value Reference Range Interpretation Comments ALT (test code = ALT) 38 See_Comment [Auto mated message] The system which ge nerated this result transmit leydi reference range : <=65. The reference range was not used to interpr et this result as krishna l/abnormal. [place] 261572-10-08 01:30:00 Test Item Value Reference Range Interpretation Comments AST (test code = AST) 15 See_Comment [Auto mated message] The system which ge nerated this result transmit leydi reference range : <=37. The reference range was not used to interpr et this result as krishna l/abnormal. [place] 261572-10-08 01:30:00 Test Item Value Reference Range Interpretation Comments Alk Phos (test code = Alk Phos) 119 39-136 [place] 261572-10-08 01:30:00 Test Item Value Reference Range Interpretation Comments Bili Total (test code = Bili Total) 0.6 0.2-1.3 [place] [address]-10-08 01:30:00 Test Item Value Reference Range Interpretation Comments AGAP (test code = AGAP) 8.8 10.0-20.0 [facility]2022-10-08 01:30:00 Test Item Value Reference Range Interpretation Comments B/C Ratio (test code = B/C Ratio) 13 1 6-25 [place] 261572-10-08 01:30:00 Test Item Value Reference Range Interpretation Comments Globulin (test code = Globulin) 3.8 2.7-4.2 [facility]2022-10-08 01:30:00 Test Item Value Reference Range Interpretation Comments A/G Ratio (test code = A/G Ratio) 1.0 1 0.7-1.6 [place] 261572-10-08 01:30:00 Test Item Value Reference Range Interpretation Comments eGFR (test code = eGFR) 66 [facility]2022-10-08 01:30:00 Test Item Value Reference Range Interpretation Comments Lipase Lvl (test code = Lipase Lvl) 75 73-[address] [facility] [id number] 20:19:00 Test Item Value Reference Range Interpretation Comments HS Troponin I (test code = HS Troponin 7 I) [facility]2022-10-07 20:19:00 Test Item Value Reference Range Interpretation Comments Glucose Lvl (test code = Glucose Lvl) 101 70-99 [facility]2022-10-07 20:19:00 Test Item Value Reference Range Interpretation Comments BUN (test code = BUN) 17 7-22 [facility]2022-10-07 20:19:00 Test Item Value Reference Range Interpretation Comments Creatinine Lvl (test code = Creatinine 1.36 0.50-1.40 Lvl) [facility]2022-10-07 20:19:00 Test Item Value Reference Range Interpretation Comments Sodium Lvl (test code = Sodium Lvl) 139 135-145 [facility]2022-10-07 20:19:00 Test Item Value Reference Range Interpretation Comments Potassium Lvl (test code = Potassium 3.6 3.5-5.1 Lvl) [facility]2022-10-07 20:19:00 Test Item Value Reference Range Interpretation Comments Chloride Lvl (test code = Chloride Lvl) 106 95-109 [facility]2022-10-07 20:19:00 Test Item Value Reference Range Interpretation Comments CO2 (test code = CO2) 25 24-32 [place] 261572-10-07 20:19:00 Test Item Value Reference Range Interpretation Comments Calcium Lvl (test code = Calcium Lvl) 9.9 8.5-10.5 [place] 261572-10-07 20:19:00 Test Item Value Reference Range Interpretation Comments AGAP (test code = AGAP) 11.6 10.0-20.0 [place] 261572-10-07 20:19:00 Test Item Value Reference Range Interpretation Comments eGFR (test code = eGFR) 67 [facility]2022-10-07 20:19:00 Test Item Value Reference Range Interpretation Comments Lactic Acid Lvl (test code = Lactic 1.1 0.5-2.2 Acid Lvl) [place] 330192-10-07 20:19:00 Test Item Value Reference Range Interpretation Comments WBC (test code = WBC) 8.3 3.7-10.4 [place] 330192-10-07 20:19:00 Test Item Value Reference Range Interpretation Comments RBC (test code = RBC) 5.68 4.70-6.10 [place] 330192-10-07 20:19:00 Test Item Value Reference Range Interpretation Comments Hgb (test code = Hgb) 15.6 14.0-18.0 [place] [address]-10-07 20:19:00 Test Item Value Reference Range Interpretation Comments Hct (test code = Hct) 48.0 42.0-54.0 [place] 330192-10-07 20:19:00 Test Item Value Reference Range Interpretation Comments MCV (test code = MCV) 84.5 80.0-94.0 [place] [address]-10-07 20:19:00 Test Item Value Reference Range Interpretation Comments MCH (test code = MCH) 27.4 pg 27.0-31.0 [place] 330192-10-07 20:19:00 Test Item Value Reference Range Interpretation Comments MCHC (test code = MCHC) 32.4 32.0-36.0 [place] 330192-10-07 20:19:00 Test Item Value Reference Range Interpretation Comments RDW (test code = RDW) 14.8 11.5-14.5 [id number] 20:19:00 Test Item Value Reference Range Interpretation Comments Platelet (test code = Platelet) 207 133-450 [facility] [id number] 20:19:00 Test Item Value Reference Range Interpretation Comments MPV (test code = MPV) 9.5 7.4-10.4 [facility] [id number] 20:19:00 Test Item Value Reference Range Interpretation Comments PT (test code = PT) 12.0 s 12.0-14.7 [facility] CenterTvmjwwgBAECFURYNA9940-12-79 20:19:00 Test Item Value Reference Range Interpretation Comments INR (test code = INR) 0.89 1 0.85-1.17 [place] 330192-10-07 20:19:00 Test Item Value Reference Range Interpretation Comments PTT (test code = PTT) 27.2 s 22.9-35.8 [place] 330192-10-07 20:19:00 Test Item Value Reference Range Interpretation Comments Segs (test code = Segs) 51.5 45.0-75.0 [facility] CenterTlzboeoOXXBLMPDXC8714-14-25 20:19:00 Test Item Value Reference Range Interpretation Comments Lymphocytes (test code = Lymphocytes) 38.1 20.0-40.0 [facility] CenterAmlodwnUUGTOCOQFE8956-00-39 20:19:00 Test Item Value Reference Range Interpretation Comments Monocytes (test code = Monocytes) 6.0 2.0-12.0 [place] 330192-10-07 20:19:00 Test Item Value Reference Range Interpretation Comments Eosinophils (test code = 3.9 See_Comment [A utomated message] The Eosinophils) system which ge nerated this result tra nsmitted reference range : <=4.0. The reference r caleb was not used to int erpret this result as normal/abnormal . [place] 330192-10-07 20:19:00 Test Item Value Reference Range Interpretation Comments Basophils (test code = 0.5 See_Comment [Aut omated message] The Basophils) system which ge nerated this result tra nsmitted reference range : <=1.0. The reference r caleb was not used to int erpret this result as normal/abnormal . [facility] CenterJigkxfrDZXQKBOLDN0192-08-41 20:19:00 Test Item Value Reference Range Interpretation Comments Neutrophils # (test code = Neutrophils 4.3 1.5-8.1 #) [facility] CenterZlmkoowCRTDTMIFZO4559-97-50 20:19:00 Test Item Value Reference Range Interpretation Comments Lymphocytes # (test code = Lymphocytes 3.2 1.0-5.5 #) [facility] CenterDivgljcGHOXQBVHTV5374-82-22 20:19:00 Test Item Value Reference Range Interpretation Comments Monocytes # (test code 0.5 See_Comment [Aut omated message] The = Monocytes #) system which generated this result tra nsmitted reference range : <=0.8. The reference r caleb was not used to int erpret this result as normal/abnormal . [facility] CenterFgoujjmIMTREVVWVT5361-51-38 20:19:00 Test Item Value Reference Range Interpretation Comments Eosinophils # (test code 0.3 See_Comment [A utomated message] The = Eosinophils #) system whic h generated this result tra nsmitted reference range : <=0.5. The reference r caleb was not used to int erpret this result as normal/abnormal . [facility] [id number] 05:26:00 Test Item Value Reference Range Interpretation Comments ABO/Rh (test code = ABO/Rh) O POS [facility] [id number] 05:26:00 Test Item Value Reference Range Interpretation Comments Antibody Scrn (test Negative (05/17/22 code = Antibody Scrn) 12:26 AM) [facility] [id number] 05:26:00 Test Item Value Reference Range Interpretation Comments Glucose Lvl (test code = Glucose Lvl) 94 70-[address] [facility] CenterTr[facility] [id number] 05:26:00 Test Item Value Reference Range Interpretation Comments BUN (test code = BUN) 17 7-[address] [facility] Center[facility] [id number] 05:26:00 Test Item Value Reference Range Interpretation Comments Creatinine Lvl (test code = Creatinine 1.32 0.50-1.40 Lvl) [facility] Center[facility] [id number] 05:26:00 Test Item Value Reference Range Interpretation Comments Sodium Lvl (test code = Sodium Lvl) 140 135-[address] [facility] Center[facility] [id number] 05:26:00 Test Item Value Reference Range Interpretation Comments Potassium Lvl (test code = Potassium 3.9 3.5-5.1 Lvl) [place] 261572-10-06 05:26:00 Test Item Value Reference Range Interpretation Comments Chloride Lvl (test code = Chloride Lvl) 108 95-109 [place] 261572-10-06 05:26:00 Test Item Value Reference Range Interpretation Comments CO2 (test code = CO2) 28 24-32 [place] 261572-10-06 05:26:00 Test Item Value Reference Range Interpretation Comments Calcium Lvl (test code = Calcium Lvl) 9.3 8.5-10.5 [place] 261572-10-06 05:26:00 Test Item Value Reference Range Interpretation Comments AGAP (test code = AGAP) 7.9 10.0-20.0 [place] 261572-10-06 05:26:00 Test Item Value Reference Range Interpretation Comments eGFR (test code = eGFR) 69 [place] 330192-10-06 05:26:00 Test Item Value Reference Range Interpretation Comments Segs (test code = Segs) 46.4 45.0-75.0 [place] [address]-10-06 05:26:00 Test Item Value Reference Range Interpretation Comments Lymphocytes (test code = Lymphocytes) 43.4 20.0-40.0 [place] [address]-10-06 05:26:00 Test Item Value Reference Range Interpretation Comments Monocytes (test code = Monocytes) 7.2 2.0-12.0 [place] [address]-10-06 05:26:00 Test Item Value Reference Range Interpretation Comments Eosinophils (test code = 2.1 See_Comment [A utomated message] The Eosinophils) system which ge nerated this result tra nsmitted reference range : <=4.0. The reference r caleb was not used to int erpret this result as normal/abnormal . [place] 330192-10-06 05:26:00 Test Item Value Reference Range Interpretation Comments Basophils (test code = 0.9 See_Comment [Aut omated message] The Basophils) system which ge nerated this result tra nsmitted reference range : <=1.0. The reference r caleb was not used to int erpret this result as normal/abnormal . [facility] CenterKmiiapfPXATQEMRKQ8740-08-00 05:26:00 Test Item Value Reference Range Interpretation Comments Neutrophils # (test code = Neutrophils 3.9 1.5-8.1 #) [facility] CenterCbopcocPIRFARZXOI6705-33-19 05:26:00 Test Item Value Reference Range Interpretation Comments Lymphocytes # (test code = Lymphocytes 3.7 1.0-5.5 #) [facility] CenterYcdypizSXPFQVKGKS8499-70-26 05:26:00 Test Item Value Reference Range Interpretation Comments Monocytes # (test code 0.6 See_Comment [Aut omated message] The = Monocytes #) system which generated this result tra nsmitted reference range : <=0.8. The reference r caleb was not used to int erpret this result as normal/abnormal . [facility] CenterQnbhwfoSAVDDVBNNW7077-71-09 05:26:00 Test Item Value Reference Range Interpretation Comments Eosinophils # (test code 0.2 See_Comment [A utomated message] The = Eosinophils #) system whic h generated this result tra nsmitted reference range : <=0.5. The reference r caleb was not used to int erpret this result as normal/abnormal . [facility] CenterIdqufolIDQLBLVRFN2658-99-51 05:26:00 Test Item Value Reference Range Interpretation Comments Basophils # (test code 0.1 See_Comment [Aut omated message] The = Basophils #) system which generated this result tra nsmitted reference range : <=0.2. The reference r caleb was not used to int erpret this result as normal/abnormal . [facility] CenterEevwhyiBGXPIKNMVQ7485-11-35 05:26:00 Test Item Value Reference Range Interpretation Comments WBC (test code = WBC) 8.4 3.7-10.4 [facility] CenterYdpoabnWZXWDLKXRT7230-50-41 05:26:00 Test Item Value Reference Range Interpretation Comments RBC (test code = RBC) 4.95 4.70-6.10 [facility] CenterNbyvygcBZRNPSWIVI2687-42-46 05:26:00 Test Item Value Reference Range Interpretation Comments Hgb (test code = Hgb) 13.7 14.0-18.0 [facility] CenterLngpofkFMRPXBHDLI4783-84-37 05:26:00 Test Item Value Reference Range Interpretation Comments Hct (test code = Hct) 41.5 42.0-54.0 [place] 330192-10-06 05:26:00 Test Item Value Reference Range Interpretation Comments MCV (test code = MCV) 83.7 80.0-94.0 [place] 330192-10-06 05:26:00 Test Item Value Reference Range Interpretation Comments MCH (test code = MCH) 27.6 pg 27.0-31.0 [place] 330192-10-06 05:26:00 Test Item Value Reference Range Interpretation Comments MCHC (test code = MCHC) 33.0 32.0-36.0 [place] 330192-10-06 05:26:00 Test Item Value Reference Range Interpretation Comments RDW (test code = RDW) 14.6 11.5-14.5 [place] 330192-10-06 05:26:00 Test Item Value Reference Range Interpretation Comments Platelet (test code = Platelet) 187 133-450 [facility] CenterDfeuobqKGBACDWGWT8977-24-62 05:26:00 Test Item Value Reference Range Interpretation Comments MPV (test code = MPV) 9.7 7.4-10.4 [place] 330192-10-06 05:26:00 Test Item Value Reference Range Interpretation Comments PTT (test code = PTT) 25.7 s 22.9-35.8 [place] [address]-10-06 05:26:00 Test Item Value Reference Range Interpretation Comments PT (test code = PT) 11.9 s 12.0-14.7 [place] [address]-10-06 05:26:00 Test Item Value Reference Range Interpretation Comments INR (test code = INR) 0.88 1 0.85-1.17 [place] [address]-10-06 05:26:00 Test Item Value Reference Range Interpretation Comments TEG Interp (test Thromboelastograph results code = TEG show shortened value of R. Interp) This finding is suggestive of enzymatic hypercoagulation. CPT:74179 [facility] CenterGosrjdaIOKREWKHIX8160-91-69 05:26:00 Test Item Value Reference Range Interpretation Comments R-time (test code = R-time) 4.5 min 5.0-10.0 [place] 330192-10-06 05:26:00 Test Item Value Reference Range Interpretation Comments K-time (test code = K-time) 1.2 min 1.0-3.0 [facility] CenterTcnmzyqUVYWBMUEGQ6500-36-89 05:26:00 Test Item Value Reference Range Interpretation Comments Angle (test code = Angle) 71.2 degrees 53.0-72.0 [facility] CenterNipjrfoXJXHPVXMKV5234-94-24 05:26:00 Test Item Value Reference Range Interpretation Comments Max Amp (test code = Max Amp) 61.8 mm 50.0-70.0 [facility] CenterJiaemyzTIARLXRVOJ5177-79-63 05:26:00 Test Item Value Reference Range Interpretation Comments G-value (test code = G-value) 8.1 4.5-11.0 [facility] CenterHvprbnsHZMTMPFTQH9557-56-80 05:26:00 Test Item Value Reference Range Interpretation Comments Ly30 (test code = 0.3 See_Comment [Automate d message] The Ly30) system which ge nerated this result transmit leydi reference range : <=7.5. The reference range was not used to interpr et this result as krishna l/abnormal. [facility] CenterCbbomwrIGGJOHXRJL9067-81-44 05:26:00 Test Item Value Reference Range Interpretation Comments Coag Index (test code 1.8 1 See_Comment [Auto mated message] The = Coag Index) system which g enerated this result transmit leydi reference range : <=3.0. The reference range was not used to interpr et this result as krishna l/abnormal. [facility] CenterVqcrcsuILYXCZXIYE3128-38-18 05:26:00 Test Item Value Reference Range Interpretation Comments TEG Data (test code = See Note (05/17/22 12:26 TEG Data) AM) [facility] CenterLcrefltGHKYPOSXWA7643-32-81 03:56:00 Test Item Value Reference Range Interpretation Comments Coronavirus (COVID-19) Not Detected (05/16/22 LIZBETH (test code = 10:56 PM) Coronavirus (COVID-19) LIZBETH) [facility] CenterVzqxyrjKERSBJBTLK6861-16-36 23:51:55 Test Item Value Reference Range Interpretation Comments WBC X 10x3 (test code = WBC X 10x3) 9.1 3.7-10.4 [facility] CenterWrexmokMKFMCNXOEA1668-66-20 23:51:55 Test Item Value Reference Range Interpretation Comments RBC X 10x6 (test code = RBC X 10x6) 4.96 4.70-6.10 [place] 330192-10-05 23:51:55 Test Item Value Reference Range Interpretation Comments Hgb (test code = Hgb) 13.7 14.0-18.0 [place] 330192-10-05 23:51:55 Test Item Value Reference Range Interpretation Comments Hct (test code = Hct) 42.3 42.0-54.0 [place] 330192-10-05 23:51:55 Test Item Value Reference Range Interpretation Comments MCV (test code = MCV) 85.3 80.0-94.0 [place] [address]-10-05 23:51:55 Test Item Value Reference Range Interpretation Comments MCH (test code = MCH) 27.6 pg 27.0-31.0 [facility] CenterLrzwwhhWWBKJNLPKG3294-55-25 23:51:55 Test Item Value Reference Range Interpretation Comments MCHC (test code = MCHC) 32.4 32.0-36.0 [facility] CenterLlbnkliFROJHSDRQB2911-53-92 23:51:55 Test Item Value Reference Range Interpretation Comments RDW (test code = RDW) 14.7 11.5-14.5 [facility] CenterRhfenmvEPMCMPTKFY2551-24-54 23:51:55 Test Item Value Reference Range Interpretation Comments Platelet (test code = Platelet) 183 133-450 [facility] CenterMvlqwbrLFJHSPIPCL2839-83-33 23:51:55 Test Item Value Reference Range Interpretation Comments MPV (test code = MPV) 9.2 7.4-10.4 [place] [address]-10-05 23:51:55 Test Item Value Reference Range Interpretation Comments Segs (test code = Segs) 56.1 45.0-75.0 [facility] CenterGolcusvBJPZGQAYBJ6540-88-94 23:51:55 Test Item Value Reference Range Interpretation Comments Lymphocytes (test code = Lymphocytes) 35.0 20.0-40.0 [place] [address]-10-05 23:51:55 Test Item Value Reference Range Interpretation Comments Monocytes (test code = Monocytes) 6.5 2.0-12.0 [place] [address]-10-05 23:51:55 Test Item Value Reference Range Interpretation Comments Eosinophils (test code = 1.8 See_Comment [A utomated message] The Eosinophils) system which ge nerated this result tra nsmitted reference range : <=4.0. The reference r caleb was not used to int erpret this result as normal/abnormal . [facility] CenterAwhlgrrTBJJHJCDDI0227-08-07 23:51:55 Test Item Value Reference Range Interpretation Comments Basophils (test code = 0.6 See_Comment [Aut omated message] The Basophils) system which ge nerated this result tra nsmitted reference range : <=1.0. The reference r caleb was not used to int erpret this result as normal/abnormal . [facility] CenterVhycipiDLCPESJWWQ1139-27-84 23:51:55 Test Item Value Reference Range Interpretation Comments Neutrophils # (test code = Neutrophils 5.1 1.5-8.1 #) [facility] CenterIhyafokZEQUOLSMEO5328-62-17 23:51:55 Test Item Value Reference Range Interpretation Comments Lymphocytes # (test code = Lymphocytes 3.2 1.0-5.5 #) [facility] CenterRnxomfaKGAQDLJOZR9712-22-63 23:51:55 Test Item Value Reference Range Interpretation Comments Monocytes # (test code 0.6 See_Comment [Aut omated message] The = Monocytes #) system which generated this result tra nsmitted reference range : <=0.8. The reference r caleb was not used to int erpret this result as normal/abnormal . [facility] CenterRdznexsZLEQOXKOXG1203-29-02 23:51:55 Test Item Value Reference Range Interpretation Comments Eosinophils # (test code 0.2 See_Comment [A utomated message] The = Eosinophils #) system whic h generated this result tra nsmitted reference range : <=0.5. The reference r caleb was not used to int erpret this result as normal/abnormal . [facility] CenterBACTERIAL - [id number] 17:30:00 Test Item Value Reference Range Interpretation Comments Source Strep (test code Cerebral Spinal Fluid = Source Strep) [facility] CenterBACTERIAL - [id number] 17:30:00 Test Item Value Reference Range Interpretation Comments Strep pneumoniae Ag Negative (05/12/22 (test code = Strep 12:30 PM) pneumoniae Ag) [facility] [id number] 17:30:00 Test Item Value Reference Range Interpretation Comments Tube Num CSF (test code = Tube Num CSF) 1 1 [facility] [id number] 17:30:00 Test Item Value Reference Range Interpretation Comments Color CSF (test code Colorless (05/12/22 12:30 = Color CSF) PM) [facility] CenterSifteoUAMASW6230-10-71 17:30:00 Test Item Value Reference Range Interpretation Comments Clarity CSF (test code = Clear (05/12/22 12:30 Clarity CSF) PM) [facility] CenterSifteoDDEWYU9350-95-71 17:30:00 Test Item Value Reference Range Interpretation Comments Supernat CSF (test Colorless (05/12/22 code = Supernat CSF) 12:30 PM) [facility] CenterSifteoHVSKLS0138-01-16 17:30:00 Test Item Value Reference Range Interpretation Comments Nucleated Cells CSF 4 See_Comment [Automa leydi message] The (test code = Nucleated syste m which generated Cells CSF) this result tra nsmitted reference range : <=53. The reference r caleb was not used to int erpret this result as normal/abnormal . [facility] [id number] 17:30:00 Test Item Value Reference Range Interpretation Comments RBC CSF (test code = 1 See_Comment [Autom ated message] The RBC CSF) system which ge nerated this result transmit leydi reference range : <=03. The reference range was not used to interpr et this result as krishna l/abnormal. [facility] CenterSifteoDQFDTY1406-42-01 17:30:00 Test Item Value Reference Range Interpretation Comments Comment CSF (test Differential not code = Comment CSF) performed on WBC count of less than 5. [facility] CenterSifteoFKVLXM1486-74-90 17:30:00 Test Item Value Reference Range Interpretation Comments Glucose CSF (test code = Glucose CSF) 71 45-[address] [facility] CenterNanospectra Biosciences [id number] 17:30:00 Test Item Value Reference Range Interpretation Comments Protein CSF (test code = Protein CSF) 195 15-[address] CenterGram Stain [id number] 17:30:00 Test Item Value Reference Range Interpretation Comments Gram Stain Report Gram Stain Performed By: (test code = [facility]) [facility] w/Gram [id number] 17:30:00 Test Item Value Reference Range Interpretation Comments Culture: CSF w/Gram 48 Hour Report - No Stain (test code = Growth, Holding Culture: CSF w/Gram Stain) [facility]2022-10-01 10:41:00 Test Item Value Reference Range Interpretation Comments Glucose Lvl (test code = Glucose Lvl) 149 70-99 [facility]2022-10-01 10:41:00 Test Item Value Reference Range Interpretation Comments BUN (test code = BUN) 12 7-22 [place] 261572-10-01 10:41:00 Test Item Value Reference Range Interpretation Comments Creatinine Lvl (test code = Creatinine 1.37 0.50-1.40 Lvl) [facility]2022-10-01 10:41:00 Test Item Value Reference Range Interpretation Comments Sodium Lvl (test code = Sodium Lvl) 142 135-145 [place] 261572-10-01 10:41:00 Test Item Value Reference Range Interpretation Comments Potassium Lvl (test code = Potassium 3.9 3.5-5.1 Lvl) [facility]2022-10-01 10:41:00 Test Item Value Reference Range Interpretation Comments Chloride Lvl (test code = Chloride Lvl) 110 95-109 [facility]2022-10-01 10:41:00 Test Item Value Reference Range Interpretation Comments CO2 (test code = CO2) 26 24-32 [facility]2022-10-01 10:41:00 Test Item Value Reference Range Interpretation Comments Calcium Lvl (test code = Calcium Lvl) 9.3 8.5-10.5 [place] 261572-10-01 10:41:00 Test Item Value Reference Range Interpretation Comments AGAP (test code = AGAP) 9.9 10.0-20.0 [facility]2022-10-01 10:41:00 Test Item Value Reference Range Interpretation Comments eGFR (test code = eGFR) 66 [facility]2022-10-01 10:41:00 Test Item Value Reference Range Interpretation Comments Total Protein (test code = Total 7.2 6.4-8.4 Protein) [facility]2022-10-01 10:41:00 Test Item Value Reference Range Interpretation Comments Albumin Lvl (test code = Albumin Lvl) 3.5 3.5-5.0 [place] 261572-10-01 10:41:00 Test Item Value Reference Range Interpretation Comments Globulin (test code = Globulin) 3.7 2.7-4.2 [facility]2022-10-01 10:41:00 Test Item Value Reference Range Interpretation Comments A/G Ratio (test code = A/G Ratio) 0.9 1 0.7-1.6 [place] 261572-10-01 10:41:00 Test Item Value Reference Range Interpretation Comments ALANINE AMINOTRANSFERASE 32 See_Comment [A utomated message] (test code = ALANINE The sys tem which AMINOTRANSFERASE) generated this result transmitted ref erence range: <=65. Th e reference range was not used to int erpret this result as normal/abnormal . [facility]2022-10-01 10:41:00 Test Item Value Reference Range Interpretation Comments AST (test code = AST) 14 See_Comment [Auto mated message] The system which ge nerated this result transmit leydi reference range : <=37. The reference range was not used to interpr et this result as krishna l/abnormal. [place] 261572-10-01 10:41:00 Test Item Value Reference Range Interpretation Comments Alk Phos (test code = Alk Phos) 110 39-136 [place] 261572-10-01 10:41:00 Test Item Value Reference Range Interpretation Comments Bili Total (test code = Bili Total) 0.3 0.2-1.3 [place] 261572-10-01 10:41:00 Test Item Value Reference Range Interpretation Comments Bili Direct (test code no gt See_Comment [Aut omated message] The = Bili Direct) system which generated this result tra nsmitted reference range : <=0.3. The reference r caleb was not used to int erpret this result as krishna l/abnormal. [place] 261572-10-01 10:41:00 Test Item Value Reference Range Interpretation Comments Bili Indirect Unable to See_Comment [Automated (test code = Bili Calculate message] T he system Indirect) which generated this result transmitted reference range : <=1.0. The reference range was not used to interpret this result as normal/abnormal . [place] 330192-10-01 10:41:00 Test Item Value Reference Range Interpretation Comments WBC X 10x3 (test code = WBC X 10x3) 13.2 3.7-10.4 [place] 330192-10-01 10:41:00 Test Item Value Reference Range Interpretation Comments RBC X 10x6 (test code = RBC X 10x6) 4.65 4.70-6.10 [facility] CenterOhrztsnDNXDRYLTZO8571-86-51 10:41:00 Test Item Value Reference Range Interpretation Comments Hgb (test code = Hgb) 12.7 14.0-18.0 [facility] CenterSxwiumiKGGIFXBXYX9212-60-87 10:41:00 Test Item Value Reference Range Interpretation Comments Hct (test code = Hct) 39.8 42.0-54.0 [facility] CenterLrbtlxmEIULNGRWPN2821-60-92 10:41:00 Test Item Value Reference Range Interpretation Comments MCV (test code = MCV) 85.5 80.0-94.0 [facility] CenterSsfmlmsUIFSXYPOPB5520-34-68 10:41:00 Test Item Value Reference Range Interpretation Comments MCH (test code = MCH) 27.4 pg 27.0-31.0 [place] 330192-10-01 10:41:00 Test Item Value Reference Range Interpretation Comments MCHC (test code = MCHC) 32.0 32.0-36.0 [facility] CenterBcsnlwhQYUEGUFICG0269-56-77 10:41:00 Test Item Value Reference Range Interpretation Comments RDW (test code = RDW) 14.6 11.5-14.5 [facility] CenterQrgfaupJNPSCHADIN6374-67-27 10:41:00 Test Item Value Reference Range Interpretation Comments Platelet (test code = Platelet) 217 133-450 [facility] CenterJcuwlozZEOELCZCCE3757-75-40 10:41:00 Test Item Value Reference Range Interpretation Comments MPV (test code = MPV) 9.4 7.4-10.4 [facility] CenterQgssfblSODQYXKWOW4578-05-41 10:41:00 Test Item Value Reference Range Interpretation Comments PT (test code = PT) 12.4 s 12.0-14.7 [place] 330192-10-01 10:41:00 Test Item Value Reference Range Interpretation Comments INR (test code = INR) 0.93 1 0.85-1.17 [place] 330192-10-01 10:41:00 Test Item Value Reference Range Interpretation Comments PTT (test code = PTT) 27.5 s 22.9-35.8 [place] 330192-10-01 10:41:00 Test Item Value Reference Range Interpretation Comments Segs (test code = Segs) 80.2 45.0-75.0 [place] 330192-10-01 10:41:00 Test Item Value Reference Range Interpretation Comments Lymphocytes (test code = Lymphocytes) 14.3 20.0-40.0 [place] 330192-10-01 10:41:00 Test Item Value Reference Range Interpretation Comments Monocytes (test code = Monocytes) 4.8 2.0-12.0 [place] 330192-10-01 10:41:00 Test Item Value Reference Range Interpretation Comments Eosinophils (test code = 0.4 See_Comment [A utomated message] The Eosinophils) system which ge nerated this result tra nsmitted reference range : <=4.0. The reference r caleb was not used to int erpret this result as normal/abnormal . [place] 330192-10-01 10:41:00 Test Item Value Reference Range Interpretation Comments Basophils (test code = 0.3 See_Comment [Aut omated message] The Basophils) system which ge nerated this result tra nsmitted reference range : <=1.0. The reference r caleb was not used to int erpret this result as normal/abnormal . [facility] CenterKlcepwqGQLDEXRDTE3216-33-21 10:41:00 Test Item Value Reference Range Interpretation Comments Neutrophils # (test code = Neutrophils 10.6 1.5-8.1 #) [place] 330192-10-01 10:41:00 Test Item Value Reference Range Interpretation Comments Lymphocytes # (test code = Lymphocytes 1.9 1.0-5.5 #) [place] 330192-10-01 10:41:00 Test Item Value Reference Range Interpretation Comments Monocytes # (test code 0.6 See_Comment [Aut omated message] The = Monocytes #) system which generated this result tra nsmitted reference range : <=0.8. The reference r caleb was not used to int erpret this result as normal/abnormal . [place] 330192-10-01 10:41:00 Test Item Value Reference Range Interpretation Comments Eosinophils # (test code 0.1 See_Comment [A utomated message] The = Eosinophils #) system whic h generated this result tra nsmitted reference range : <=0.5. The reference r caleb was not used to int erpret this result as normal/abnormal . [place] 131632-10-01 10:41:00 Test Item Value Reference Range Interpretation Comments Hep C Ab (test code = Hep C Ab) NON-REACTIVE [place] 131632-10-01 10:41:00 Test Item Value Reference Range Interpretation Comments Hep Signal to Cut-Off (test code = Hep 0.07 1 Signal to Cut-Off) [place] [address]-10-01 10:41:00 Test Item Value Reference Range Interpretation Comments [facility] HIV 4th GEN (test Negative *NA*(05/12/22 code = CDC HIV 4th 5:41 AM) GEN) [place] 330192-02-28 21:33:00 Test Item Value Reference Range Interpretation Comments Neutrophils # (test code = Neutrophils 4.4 1.5-8.1 #) [place] 330192-02-28 21:33:00 Test Item Value Reference Range Interpretation Comments Lymphocytes # (test code = Lymphocytes 1.1 1.0-5.5 #) [place] 330192-02-28 21:33:00 Test Item Value Reference Range Interpretation Comments Monocytes # (test code 0.2 See_Comment [Aut omated message] The = Monocytes #) system which generated this result tra nsmitted reference range : <=0.8. The reference r caleb was not used to int erpret this result as normal/abnormal . [place] 330192-02-28 21:33:00 Test Item Value Reference Range Interpretation Comments Eosinophils # (test code 0.2 See_Comment [A utomated message] The = Eosinophils #) system whic h generated this result tra nsmitted reference range : <=0.5. The reference r caleb was not used to int erpret this result as normal/abnormal . [facility] Center[facility]ade[facility] [id number] 21:33:00 Test Item Value Reference Range Interpretation Comments Glucose Lvl (test code = Glucose Lvl) 114 70-99 [place] 261572-02-28 21:33:00 Test Item Value Reference Range Interpretation Comments BUN (test code = BUN) 14 7-22 [place] 261572-02-28 21:33:00 Test Item Value Reference Range Interpretation Comments Creatinine Lvl (test code = Creatinine 1.36 0.50-1.40 Lvl) [place] 261572-02-28 21:33:00 Test Item Value Reference Range Interpretation Comments Sodium Lvl (test code = Sodium Lvl) 139 135-145 [place] 261572-02-28 21:33:00 Test Item Value Reference Range Interpretation Comments Potassium Lvl (test code = Potassium 4.6 3.5-5.1 Lvl) [place] 261572-02-28 21:33:00 Test Item Value Reference Range Interpretation Comments Chloride Lvl (test code = Chloride Lvl) 104 95-109 [place] 261572-02-28 21:33:00 Test Item Value Reference Range Interpretation Comments CO2 (test code = CO2) 29 24-32 [place] 261572-02-28 21:33:00 Test Item Value Reference Range Interpretation Comments Calcium Lvl (test code = Calcium Lvl) 9.3 8.5-10.5 [place] 261572-02-28 21:33:00 Test Item Value Reference Range Interpretation Comments AGAP (test code = AGAP) 10.6 10.0-20.0 [place] 261572-02-28 21:33:00 Test Item Value Reference Range Interpretation Comments eGFR (test code = eGFR) 64 [place] 330192-02-28 21:33:00 Test Item Value Reference Range Interpretation Comments WBC (test code = WBC) 5.9 3.7-10.4 [place] 330192-02-28 21:33:00 Test Item Value Reference Range Interpretation Comments RBC (test code = RBC) 4.85 4.70-6.10 [place] [address]-02-28 21:33:00 Test Item Value Reference Range Interpretation Comments Hgb (test code = Hgb) 13.7 14.0-18.0 [place] [address]-02-28 21:33:00 Test Item Value Reference Range Interpretation Comments Hct (test code = Hct) 41.5 42.0-54.0 [place] [address]-02-28 21:33:00 Test Item Value Reference Range Interpretation Comments MCV (test code = MCV) 85.4 80.0-94.0 [address]02-28 21:33:00 Test Item Value Reference Range Interpretation Comments MCH (test code = MCH) 28.2 pg 27.0-31.0 [place] [address]-02-28 21:33:00 Test Item Value Reference Range Interpretation Comments MCHC (test code = MCHC) 33.0 32.0-36.0 [place] 330192-02-28 21:33:00 Test Item Value Reference Range Interpretation Comments RDW (test code = RDW) 14.0 11.5-14.5 [place] [address]-02-28 21:33:00 Test Item Value Reference Range Interpretation Comments Platelet (test code = Platelet) 186 133-450 [place] 330192-02-28 21:33:00 Test Item Value Reference Range Interpretation Comments MPV (test code = MPV) 9.1 7.4-10.4 [place] [address]-02-28 21:33:00 Test Item Value Reference Range Interpretation Comments PT (test code = PT) 12.4 s 12.0-14.7 [place] [address]-02-28 21:33:00 Test Item Value Reference Range Interpretation Comments INR (test code = INR) 0.93 1 0.85-1.17 [place] [address]-02-28 21:33:00 Test Item Value Reference Range Interpretation Comments PTT (test code = PTT) 27.8 s 22.9-35.8 [place] [address]-02-28 21:33:00 Test Item Value Reference Range Interpretation Comments Segs (test code = Segs) 73.9 45.0-75.0 [place] 330192-02-28 21:33:00 Test Item Value Reference Range Interpretation Comments Lymphocytes (test code = Lymphocytes) 18.2 20.0-40.0 [place] [address]-02-28 21:33:00 Test Item Value Reference Range Interpretation Comments Monocytes (test code = Monocytes) 3.4 2.0-12.0 [place] [address]-02-28 21:33:00 Test Item Value Reference Range Interpretation Comments Eosinophils (test code = 4.2 See_Comment [A utomated message] The Eosinophils) system which ge nerated this result tra nsmitted reference range : <=4.0. The reference r caleb was not used to int erpret this result as normal/abnormal . [place] [address]-02-28 21:33:00 Test Item Value Reference Range Interpretation Comments Basophils (test code = 0.3 See_Comment [Aut omated message] The Basophils) system which ge nerated this result tra nsmitted reference range : <=1.0. The reference r caleb was not used to int erpret this result as normal/abnormal . [place] 330192-02-28 21:33:00 Test Item Value Reference Range Interpretation Comments Neutrophils # (test code = Neutrophils 4.4 1.5-8.1 #) [place] 330192-02-28 21:33:00 Test Item Value Reference Range Interpretation Comments Lymphocytes # (test code = Lymphocytes 1.1 1.0-5.5 #) [place] [address]-02-28 21:33:00 Test Item Value Reference Range Interpretation Comments Monocytes # (test code 0.2 See_Comment [Aut omated message] The = Monocytes #) system which generated this result tra nsmitted reference range : <=0.8. The reference r caleb was not used to int erpret this result as normal/abnormal . [place] [address]-02-28 21:33:00 Test Item Value Reference Range Interpretation Comments Eosinophils # (test code 0.2 See_Comment [A utomated message] The = Eosinophils #) system whic h generated this result tra nsmitted reference range : <=0.5. The reference r caleb was not used to int erpret this result as normal/abnormal . [place] 261572-02-28 21:33:00 Test Item Value Reference Range Interpretation Comments Glucose Lvl (test code = Glucose Lvl) 114 70-99 [place] 261572-02-28 21:33:00 Test Item Value Reference Range Interpretation Comments BUN (test code = BUN) 14 7-22 [place] 261572-02-28 21:33:00 Test Item Value Reference Range Interpretation Comments Creatinine Lvl (test code = Creatinine 1.36 0.50-1.40 Lvl) [place] 261572-02-28 21:33:00 Test Item Value Reference Range Interpretation Comments Sodium Lvl (test code = Sodium Lvl) 139 135-145 [place] 261572-02-28 21:33:00 Test Item Value Reference Range Interpretation Comments Potassium Lvl (test code = Potassium 4.6 3.5-5.1 Lvl) [place] 261572-02-28 21:33:00 Test Item Value Reference Range Interpretation Comments Chloride Lvl (test code = Chloride Lvl) 104 95-109 [place] 261572-02-28 21:33:00 Test Item Value Reference Range Interpretation Comments CO2 (test code = CO2) 29 24-32 [place] 261572-02-28 21:33:00 Test Item Value Reference Range Interpretation Comments Calcium Lvl (test code = Calcium Lvl) 9.3 8.5-10.5 [place] 261572-02-28 21:33:00 Test Item Value Reference Range Interpretation Comments AGAP (test code = AGAP) 10.6 10.0-20.0 [place] 261572-02-28 21:33:00 Test Item Value Reference Range Interpretation Comments eGFR (test code = eGFR) 64 [place] 330192-02-28 21:33:00 Test Item Value Reference Range Interpretation Comments WBC (test code = WBC) 5.9 3.7-10.4 [place] [address]-02-28 21:33:00 Test Item Value Reference Range Interpretation Comments RBC (test code = RBC) 4.85 4.70-6.10 [place] [address]-02-28 21:33:00 Test Item Value Reference Range Interpretation Comments Hgb (test code = Hgb) 13.7 14.0-18.0 [place] [address]-02-28 21:33:00 Test Item Value Reference Range Interpretation Comments Hct (test code = Hct) 41.5 42.0-54.0 [place] [address]-02-28 21:33:00 Test Item Value Reference Range Interpretation Comments MCV (test code = MCV) 85.4 80.0-94.0 [place] [address]-02-28 21:33:00 Test Item Value Reference Range Interpretation Comments MCH (test code = MCH) 28.2 pg 27.0-31.0 [place] 330192-02-28 21:33:00 Test Item Value Reference Range Interpretation Comments MCHC (test code = MCHC) 33.0 32.0-36.0 [place] 330192-02-28 21:33:00 Test Item Value Reference Range Interpretation Comments RDW (test code = RDW) 14.0 11.5-14.5 [place] [address]-02-28 21:33:00 Test Item Value Reference Range Interpretation Comments Platelet (test code = Platelet) 186 133-450 [place] 330192-02-28 21:33:00 Test Item Value Reference Range Interpretation Comments MPV (test code = MPV) 9.1 7.4-10.4 [place] 330192-02-28 21:33:00 Test Item Value Reference Range Interpretation Comments PT (test code = PT) 12.4 s 12.0-14.7 [place] [address]-02-28 21:33:00 Test Item Value Reference Range Interpretation Comments INR (test code = INR) 0.93 1 0.85-1.17 [place] 330192-02-28 21:33:00 Test Item Value Reference Range Interpretation Comments PTT (test code = PTT) 27.8 s 22.9-35.8 [place] 330192-02-28 21:33:00 Test Item Value Reference Range Interpretation Comments Segs (test code = Segs) 73.9 45.0-75.0 [place] 330192-02-28 21:33:00 Test Item Value Reference Range Interpretation Comments Lymphocytes (test code = Lymphocytes) 18.2 20.0-40.0 [place] 330192-02-28 21:33:00 Test Item Value Reference Range Interpretation Comments Monocytes (test code = Monocytes) 3.4 2.0-12.0 [place] [address]-02-28 21:33:00 Test Item Value Reference Range Interpretation Comments Eosinophils (test code = 4.2 See_Comment [A utomated message] The Eosinophils) system which ge nerated this result tra nsmitted reference range : <=4.0. The reference r caleb was not used to int erpret this result as normal/abnormal . [place] 330192-02-28 21:33:00 Test Item Value Reference Range Interpretation Comments Basophils (test code = 0.3 See_Comment [Aut omated message] The Basophils) system which ge nerated this result tra nsmitted reference range : <=1.0. The reference r caleb was not used to int erpret this result as normal/abnormal . [facility] [id number] 20:31:00 Test Item Value Reference Range Interpretation Comments Glucose CSF (test code = Glucose CSF) 77 45-80 [facility]2022-02-28 20:31:00 Test Item Value Reference Range Interpretation Comments Protein CSF (test code = Protein CSF) 33 15-45 [facility]2022-02-28 20:31:00 Test Item Value Reference Range Interpretation Comments Tube Num CSF (test xxxxxxx (10/09/21 2:31 code = Tube Num CSF) PM) [facility]2022-02-28 20:31:00 Test Item Value Reference Range Interpretation Comments Color CSF (test code Colorless (10/09/21 2:31 = Color CSF) PM) [facility]2022-02-28 20:31:00 Test Item Value Reference Range Interpretation Comments Clarity CSF (test code = Clear (10/09/21 2:31 Clarity CSF) PM) [facility]2022-02-28 20:31:00 Test Item Value Reference Range Interpretation Comments Supernat CSF (test Colorless (10/09/21 2:31 code = Supernat CSF) PM) [place] 829842-02-28 20:31:00 Test Item Value Reference Range Interpretation Comments Nucleated Cells CSF 9 See_Comment [Automa leydi message] The (test code = Nucleated syste m which generated Cells CSF) this result tra nsmitted reference range : <=53. The reference r caleb was not used to int erpret this result as normal/abnormal . [facility] [id number] 20:31:00 Test Item Value Reference Range Interpretation Comments RBC CSF (test code = 280 See_Comment [Autom ated message] The RBC CSF) system which ge nerated this result transmit leydi reference range : <=03. The reference range was not used to interpr et this result as krishna l/abnormal. [facility] [id number] 20:31:00 Test Item Value Reference Range Interpretation Comments Neutrophils CSF (test 64 See_Comment [Auto mated message] The code = Neutrophils CSF) syst em which generated this result tra nsmitted reference range : <=6. The reference r caleb was not used to int erpret this result as normal/abnormal . [facility] [id number] 20:31:00 Test Item Value Reference Range Interpretation Comments Lymph CSF (test code = Lymph CSF) 30 40-80 [facility]2022-02-28 20:31:00 Test Item Value Reference Range Interpretation Comments Monocyte CSF (test code = Monocyte CSF) 6 15-[address] [facility] CenterCulture: [id number] 20:31:00 Test Item Value Reference Range Interpretation Comments Culture: Anaerobic No Anaerobes Isolated (test code = Culture: After 3 Days Anaerobic) [facility] CenterGram Stain [id number] 20:31:00 Test Item Value Reference Range Interpretation Comments Gram Stain Report Few Wbc'S; No Organisms (test code = Gram Seen Stain Report) [facility] CenterCulture: CSF w/Gram [id number] 20:31:00 Test Item Value Reference Range Interpretation Comments Culture: CSF w/Gram 72 Hour Report - No Stain (test code = Growth, Holding Culture: CSF w/Gram Stain) [facility]2022-02-28 20:31:00 Test Item Value Reference Range Interpretation Comments Glucose CSF (test code = Glucose CSF) 77 45-80 [facility]2022-02-28 20:31:00 Test Item Value Reference Range Interpretation Comments Protein CSF (test code = Protein CSF) 33 15-45 [facility]2022-02-28 20:31:00 Test Item Value Reference Range Interpretation Comments Tube Num CSF (test xxxxxxx (10/09/21 2:31 code = Tube Num CSF) PM) [facility]2022-02-28 20:31:00 Test Item Value Reference Range Interpretation Comments Color CSF (test code Colorless (10/09/21 2:31 = Color CSF) PM) [facility]2022-02-28 20:31:00 Test Item Value Reference Range Interpretation Comments Clarity CSF (test code = Clear (10/09/21 2:31 Clarity CSF) PM) [facility]2022-02-28 20:31:00 Test Item Value Reference Range Interpretation Comments Supernat CSF (test Colorless (10/09/21 2:31 code = Supernat CSF) PM) [facility] [id number] 20:31:00 Test Item Value Reference Range Interpretation Comments Nucleated Cells CSF 9 See_Comment [Automa leydi message] The (test code = Nucleated syste m which generated Cells CSF) this result tra nsmitted reference range : <=53. The reference r caleb was not used to int erpret this result as normal/abnormal . [facility] [id number] 20:31:00 Test Item Value Reference Range Interpretation Comments RBC CSF (test code = 280 See_Comment [Autom ated message] The RBC CSF) system which ge nerated this result transmit leydi reference range : <=03. The reference range was not used to interpr et this result as krishna l/abnormal. [facility] CenterSifteoUFPKHL0524-07-54 20:31:00 Test Item Value Reference Range Interpretation Comments Neutrophils CSF (test 64 See_Comment [Auto mated message] The code = Neutrophils CSF) syst em which generated this result tra nsmitted reference range : <=6. The reference r caleb was not used to int erpret this result as normal/abnormal . [facility] [id number] 20:31:00 Test Item Value Reference Range Interpretation Comments Lymph CSF (test code = Lymph CSF) 30 40-[address] [facility] [id number] 20:31:00 Test Item Value Reference Range Interpretation Comments Monocyte CSF (test code = Monocyte CSF) 6 15-[address] CenterCulture: [id number] 20:31:00 Test Item Value Reference Range Interpretation Comments Culture: Anaerobic No Anaerobes Isolated (test code = Culture: After 3 Days Anaerobic) [facility] HospitalNykaaGram Stain [id number] 20:31:00 Test Item Value Reference Range Interpretation Comments Gram Stain Report Few Wbc'S; No Organisms (test code = Gram Seen Stain Report) [facility] CenterCulture: CSF w/Gram [id number] 20:31:00 Test Item Value Reference Range Interpretation Comments Culture: CSF w/Gram 72 Hour Report - No Stain (test code = Growth, Holding Culture: CSF w/Gram Stain) [facility] HospitalTifen.[facility] [id number] 08:57:00 Test Item Value Reference Range Interpretation Comments Glucose Lvl (test code = Glucose Lvl) 109 70-99 [place] 261572-02-28 08:57:00 Test Item Value Reference Range Interpretation Comments BUN (test code = BUN) 17 7-22 [place] 261572-02-28 08:57:00 Test Item Value Reference Range Interpretation Comments Creatinine Lvl (test code = Creatinine 1.28 0.50-1.40 Lvl) [place] 261572-02-28 08:57:00 Test Item Value Reference Range Interpretation Comments Sodium Lvl (test code = Sodium Lvl) 140 135-145 [place] 261572-02-28 08:57:00 Test Item Value Reference Range Interpretation Comments Potassium Lvl (test code = Potassium 3.9 3.5-5.1 Lvl) [place] 261572-02-28 08:57:00 Test Item Value Reference Range Interpretation Comments Chloride Lvl (test code = Chloride Lvl) 108 95-109 [place] 261572-02-28 08:57:00 Test Item Value Reference Range Interpretation Comments CO2 (test code = CO2) 27 24-32 [place] 261572-02-28 08:57:00 Test Item Value Reference Range Interpretation Comments Calcium Lvl (test code = Calcium Lvl) 9.5 8.5-10.5 [place] 261572-02-28 08:57:00 Test Item Value Reference Range Interpretation Comments AGAP (test code = AGAP) 8.9 10.0-20.0 [place] 261572-02-28 08:57:00 Test Item Value Reference Range Interpretation Comments eGFR (test code = eGFR) 69 [place] [address]-02-28 08:57:00 Test Item Value Reference Range Interpretation Comments WBC (test code = WBC) 8.5 3.7-10.4 [place] [address]-02-28 08:57:00 Test Item Value Reference Range Interpretation Comments RBC (test code = RBC) 4.69 4.70-6.10 [place] [address]-02-28 08:57:00 Test Item Value Reference Range Interpretation Comments Hgb (test code = Hgb) 13.3 14.0-18.0 [place] [address]-02-28 08:57:00 Test Item Value Reference Range Interpretation Comments Hct (test code = Hct) 40.4 42.0-54.0 [facility] CenterSnyohlkYNNJGYEADH2288-59-51 08:57:00 Test Item Value Reference Range Interpretation Comments MCV (test code = MCV) 86.1 80.0-94.0 [facility] CenterQyvuigkOEEYKDEEUR1480-78-66 08:57:00 Test Item Value Reference Range Interpretation Comments MCH (test code = MCH) 28.3 pg 27.0-31.0 [facility] CenterIhplknaLTLNDSOLOI1440-11-64 08:57:00 Test Item Value Reference Range Interpretation Comments MCHC (test code = MCHC) 32.9 32.0-36.0 [facility] CenterIzplagwYKAVGTCHIC3604-78-42 08:57:00 Test Item Value Reference Range Interpretation Comments RDW (test code = RDW) 14.1 11.5-14.5 [facility] CenterRkbfwieDHEKFTOHDF7703-71-49 08:57:00 Test Item Value Reference Range Interpretation Comments Platelet (test code = Platelet) 192 133-450 [facility] CenterJxxvchzAUCDHRPQNL0152-24-81 08:57:00 Test Item Value Reference Range Interpretation Comments MPV (test code = MPV) 9.2 7.4-10.4 [place] 330192-02-28 08:57:00 Test Item Value Reference Range Interpretation Comments R-time (test code = R-time) 6.0 min 5.0-10.0 [facility] CenterXpcllloYZSLSHGIJH9086-13-19 08:57:00 Test Item Value Reference Range Interpretation Comments K-time (test code = K-time) 1.4 min 1.0-3.0 [place] 330192-02-28 08:57:00 Test Item Value Reference Range Interpretation Comments Angle (test code = Angle) 69.7 degrees 53.0-72.0 [place] 330192-02-28 08:57:00 Test Item Value Reference Range Interpretation Comments Max Amp (test code = Max Amp) 66.3 mm 50.0-70.0 [place] 330192-02-28 08:57:00 Test Item Value Reference Range Interpretation Comments G-value (test code = G-value) 9.8 4.5-11.0 [place] 330192-02-28 08:57:00 Test Item Value Reference Range Interpretation Comments Ly30 (test code = 0.6 See_Comment [Automate d message] The Ly30) system which ge nerated this result transmit leydi reference range : <=7.5. The reference range was not used to interpr et this result as krishna l/abnormal. [address]02-28 08:57:00 Test Item Value Reference Range Interpretation Comments Coag Index (test code 1.2 1 See_Comment [Auto mated message] The = Coag Index) system which g enerated this result transmit leydi reference range : <=3.0. The reference range was not used to interpr et this result as krishna l/abnormal. [address]02-28 08:57:00 Test Item Value Reference Range Interpretation Comments TEG Data (test code = See Note (10/09/21 2:57 TEG Data) AM) [address]02-28 08:57:00 Test Item Value Reference Range Interpretation Comments PT (test code = PT) 12.1 s 12.0-14.7 [place] [address]-02-28 08:57:00 Test Item Value Reference Range Interpretation Comments INR (test code = INR) 0.90 1 0.85-1.17 [address]02-28 08:57:00 Test Item Value Reference Range Interpretation Comments PTT (test code = PTT) 27.6 s 22.9-35.8 [address]02-28 08:57:00 Test Item Value Reference Range Interpretation Comments Segs (test code = Segs) 52.0 45.0-75.0 [place] [address]-02-28 08:57:00 Test Item Value Reference Range Interpretation Comments Lymphocytes (test code = Lymphocytes) 33.8 20.0-40.0 [place] [address]-02-28 08:57:00 Test Item Value Reference Range Interpretation Comments Monocytes (test code = Monocytes) 8.0 2.0-12.0 [address]02-28 08:57:00 Test Item Value Reference Range Interpretation Comments Eosinophils (test code = 5.8 See_Comment [A utomated message] The Eosinophils) system which ge nerated this result tra nsmitted reference range : <=4.0. The reference r caleb was not used to int erpret this result as normal/abnormal . [place] 330192-02-28 08:57:00 Test Item Value Reference Range Interpretation Comments Basophils (test code = 0.4 See_Comment [Aut omated message] The Basophils) system which ge nerated this result tra nsmitted reference range : <=1.0. The reference r caleb was not used to int erpret this result as normal/abnormal . [place] 330192-02-28 08:57:00 Test Item Value Reference Range Interpretation Comments Neutrophils # (test code = Neutrophils 4.4 1.5-8.1 #) [place] [address]-02-28 08:57:00 Test Item Value Reference Range Interpretation Comments Lymphocytes # (test code = Lymphocytes 2.9 1.0-5.5 #) [place] 330192-02-28 08:57:00 Test Item Value Reference Range Interpretation Comments Monocytes # (test code 0.7 See_Comment [Aut omated message] The = Monocytes #) system which generated this result tra nsmitted reference range : <=0.8. The reference r caleb was not used to int erpret this result as normal/abnormal . [place] 330192-02-28 08:57:00 Test Item Value Reference Range Interpretation Comments Eosinophils # (test code 0.5 See_Comment [A utomated message] The = Eosinophils #) system whic h generated this result tra nsmitted reference range : <=0.5. The reference r caleb was not used to int erpret this result as normal/abnormal . [place] 330192-02-28 08:57:00 Test Item Value Reference Range Interpretation Comments TEG Interp (test Thrombelastograph results code = TEG are within reference ranges. Interp) Note that TEG does not show effect of NSAIDs or P2Y12 inhibitors. CPT:41818 [place] 261572-02-28 08:57:00 Test Item Value Reference Range Interpretation Comments Glucose Lvl (test code = Glucose Lvl) 109 70-99 [place] 261572-02-28 08:57:00 Test Item Value Reference Range Interpretation Comments BUN (test code = BUN) 17 7-22 [place] 261572-02-28 08:57:00 Test Item Value Reference Range Interpretation Comments Creatinine Lvl (test code = Creatinine 1.28 0.50-1.40 Lvl) [place] 261572-02-28 08:57:00 Test Item Value Reference Range Interpretation Comments Sodium Lvl (test code = Sodium Lvl) 140 135-145 [place] 261572-02-28 08:57:00 Test Item Value Reference Range Interpretation Comments Potassium Lvl (test code = Potassium 3.9 3.5-5.1 Lvl) [place] 261572-02-28 08:57:00 Test Item Value Reference Range Interpretation Comments Chloride Lvl (test code = Chloride Lvl) 108 95-109 [place] 261572-02-28 08:57:00 Test Item Value Reference Range Interpretation Comments CO2 (test code = CO2) 27 24-32 [place] 261572-02-28 08:57:00 Test Item Value Reference Range Interpretation Comments Calcium Lvl (test code = Calcium Lvl) 9.5 8.5-10.5 [place] 261572-02-28 08:57:00 Test Item Value Reference Range Interpretation Comments AGAP (test code = AGAP) 8.9 10.0-20.0 [place] 261572-02-28 08:57:00 Test Item Value Reference Range Interpretation Comments eGFR (test code = eGFR) 69 [place] [address]-02-28 08:57:00 Test Item Value Reference Range Interpretation Comments WBC (test code = WBC) 8.5 3.7-10.4 [place] [address]-02-28 08:57:00 Test Item Value Reference Range Interpretation Comments RBC (test code = RBC) 4.69 4.70-6.10 [place] [address]-02-28 08:57:00 Test Item Value Reference Range Interpretation Comments Hgb (test code = Hgb) 13.3 14.0-18.0 [place] [address]-02-28 08:57:00 Test Item Value Reference Range Interpretation Comments Hct (test code = Hct) 40.4 42.0-54.0 [address]02-28 08:57:00 Test Item Value Reference Range Interpretation Comments MCV (test code = MCV) 86.1 80.0-94.0 [place] [address]-02-28 08:57:00 Test Item Value Reference Range Interpretation Comments MCH (test code = MCH) 28.3 pg 27.0-31.0 [facility]257[facility] 08:57:00 Test Item Value Reference Range Interpretation Comments MCHC (test code = MCHC) 32.9 32.0-36.0 [facility]yjikORGFVIZKQB3370-25-10 08:57:00 Test Item Value Reference Range Interpretation Comments RDW (test code = RDW) 14.1 11.5-14.5 [place] 330192-02-28 08:57:00 Test Item Value Reference Range Interpretation Comments Platelet (test code = Platelet) 192 133-450 [place] 330192-02-28 08:57:00 Test Item Value Reference Range Interpretation Comments MPV (test code = MPV) 9.2 7.4-10.4 [place] 330192-02-28 08:57:00 Test Item Value Reference Range Interpretation Comments R-time (test code = R-time) 6.0 min 5.0-10.0 [place] 330192-02-28 08:57:00 Test Item Value Reference Range Interpretation Comments K-time (test code = K-time) 1.4 min 1.0-3.0 [place] 330192-02-28 08:57:00 Test Item Value Reference Range Interpretation Comments Angle (test code = Angle) 69.7 degrees 53.0-72.0 [place] 330192-02-28 08:57:00 Test Item Value Reference Range Interpretation Comments Max Amp (test code = Max Amp) 66.3 mm 50.0-70.0 [place] 330192-02-28 08:57:00 Test Item Value Reference Range Interpretation Comments G-value (test code = G-value) 9.8 4.5-11.0 [place] 330192-02-28 08:57:00 Test Item Value Reference Range Interpretation Comments Ly30 (test code = 0.6 See_Comment [Automate d message] The Ly30) system which ge nerated this result transmit leydi reference range : <=7.5. The reference range was not used to interpr et this result as krishna l/abnormal. [facility] CenterXfhzhbfHUUIANBEOY5834-33-84 08:57:00 Test Item Value Reference Range Interpretation Comments Coag Index (test code 1.2 1 See_Comment [Auto mated message] The = Coag Index) system which g enerated this result transmit leydi reference range : <=3.0. The reference range was not used to interpr et this result as krishna l/abnormal. [place] [address]-02-28 08:57:00 Test Item Value Reference Range Interpretation Comments TEG Data (test code = See Note (10/09/21 2:57 TEG Data) AM) [place] 330192-02-28 08:57:00 Test Item Value Reference Range Interpretation Comments PT (test code = PT) 12.1 s 12.0-14.7 [place] [address]-02-28 08:57:00 Test Item Value Reference Range Interpretation Comments INR (test code = INR) 0.90 1 0.85-1.17 [place] [address]-02-28 08:57:00 Test Item Value Reference Range Interpretation Comments PTT (test code = PTT) 27.6 s 22.9-35.8 [place] [address]-02-28 08:57:00 Test Item Value Reference Range Interpretation Comments Segs (test code = Segs) 52.0 45.0-75.0 [place] 330192-02-28 08:57:00 Test Item Value Reference Range Interpretation Comments Lymphocytes (test code = Lymphocytes) 33.8 20.0-40.0 [place] 330192-02-28 08:57:00 Test Item Value Reference Range Interpretation Comments Monocytes (test code = Monocytes) 8.0 2.0-12.0 [place] [address]-02-28 08:57:00 Test Item Value Reference Range Interpretation Comments Eosinophils (test code = 5.8 See_Comment [A utomated message] The Eosinophils) system which ge nerated this result tra nsmitted reference range : <=4.0. The reference r caleb was not used to int erpret this result as normal/abnormal . [place] 330192-02-28 08:57:00 Test Item Value Reference Range Interpretation Comments Basophils (test code = 0.4 See_Comment [Aut omated message] The Basophils) system which ge nerated this result tra nsmitted reference range : <=1.0. The reference r caleb was not used to int erpret this result as normal/abnormal . [address]02-28 08:57:00 Test Item Value Reference Range Interpretation Comments Neutrophils # (test code = Neutrophils 4.4 1.5-8.1 #) [place] [address]-02-28 08:57:00 Test Item Value Reference Range Interpretation Comments Lymphocytes # (test code = Lymphocytes 2.9 1.0-5.5 #) [place] [address]-02-28 08:57:00 Test Item Value Reference Range Interpretation Comments Monocytes # (test code 0.7 See_Comment [Aut omated message] The = Monocytes #) system which generated this result tra nsmitted reference range : <=0.8. The reference r caleb was not used to int erpret this result as normal/abnormal . [place] [address]-02-28 08:57:00 Test Item Value Reference Range Interpretation Comments Eosinophils # (test code 0.5 See_Comment [A utomated message] The = Eosinophils #) system whic h generated this result tra nsmitted reference range : <=0.5. The reference r caleb was not used to int erpret this result as normal/abnormal . [place] 330192-02-28 08:57:00 Test Item Value Reference Range Interpretation Comments TEG Interp (test Thrombelastograph results code = TEG are within reference ranges. Interp) Note that TEG does not show effect of NSAIDs or P2Y12 inhibitors. [id number] [place] 261572-02-28 02:07:26 Test Item Value Reference Range Interpretation Comments Glucose Lvl (test code = Glucose Lvl) 95 70-99 [place] 261572-02-28 02:07:26 Test Item Value Reference Range Interpretation Comments BUN (test code = BUN) 13 7-22 [place] 261572-02-28 02:07:26 Test Item Value Reference Range Interpretation Comments Creatinine Lvl (test code = Creatinine 1.24 0.50-1.40 Lvl) [place]1572-02-28 02:07:26 Test Item Value Reference Range Interpretation Comments Sodium Lvl (test code = Sodium Lvl) 140 135-145 [place] 261572-02-28 02:07:26 Test Item Value Reference Range Interpretation Comments Potassium Lvl (test code = Potassium 3.7 3.5-5.1 Lvl) [place]1572-02-28 02:07:26 Test Item Value Reference Range Interpretation Comments Chloride Lvl (test code = Chloride Lvl) 106 95-109 [place] 261572-02-28 02:07:26 Test Item Value Reference Range Interpretation Comments CO2 (test code = CO2) 30 24-32 [place] 261572-02-28 02:07:26 Test Item Value Reference Range Interpretation Comments Calcium Lvl (test code = Calcium Lvl) 9.5 8.5-10.5 [place] 261572-02-28 02:07:26 Test Item Value Reference Range Interpretation Comments AGAP (test code = AGAP) 7.7 10.0-20.0 [place] 261572-02-28 02:07:26 Test Item Value Reference Range Interpretation Comments eGFR (test code = eGFR) 72 [place] 330192-02-28 02:07:26 Test Item Value Reference Range Interpretation Comments WBC X 10x3 (test code = WBC X 10x3) 7.4 3.7-10.4 [place] 330192-02-28 02:07:26 Test Item Value Reference Range Interpretation Comments RBC X 10x6 (test code = RBC X 10x6) 5.06 4.70-6.10 [place] 330192-02-28 02:07:26 Test Item Value Reference Range Interpretation Comments Hgb (test code = Hgb) 14.0 14.0-18.0 [place] [address]-02-28 02:07:26 Test Item Value Reference Range Interpretation Comments Hct (test code = Hct) 43.5 42.0-54.0 [address]02-28 02:07:26 Test Item Value Reference Range Interpretation Comments MCV (test code = MCV) 85.9 80.0-94.0 [place] [address]-02-28 02:07:26 Test Item Value Reference Range Interpretation Comments MCH (test code = MCH) 27.7 pg 27.0-31.0 [place] [address]-02-28 02:07:26 Test Item Value Reference Range Interpretation Comments MCHC (test code = MCHC) 32.3 32.0-36.0 [place] 330192-02-28 02:07:26 Test Item Value Reference Range Interpretation Comments RDW (test code = RDW) 13.9 11.5-14.5 [place] [address]-02-28 02:07:26 Test Item Value Reference Range Interpretation Comments Platelet (test code = Platelet) 192 133-450 [place] 330192-02-28 02:07:26 Test Item Value Reference Range Interpretation Comments MPV (test code = MPV) 9.1 7.4-10.4 [place] 330192-02-28 02:07:26 Test Item Value Reference Range Interpretation Comments ACT (TEG) Rapid (test code = ACT (TEG) 128 s 86-118 Rapid) [place] 330192-02-28 02:07:26 Test Item Value Reference Range Interpretation Comments Split Point Rapid (test code = Split 0.7 min Point Rapid) [place] 330192-02-28 02:07:26 Test Item Value Reference Range Interpretation Comments R-time Rapid (test code = R-time 0.8 min 0.4-0.7 Rapid) [place] 330192-02-28 02:07:26 Test Item Value Reference Range Interpretation Comments K-time Rapid (test code = K-time 1.1 min 0.6-2.3 Rapid) [place] 330192-02-28 02:07:26 Test Item Value Reference Range Interpretation Comments Angle Rapid (test code = Angle 76 degrees 64-80 Rapid) [place] 330192-02-28 02:07:26 Test Item Value Reference Range Interpretation Comments Max Amplitude Rapid (test code = Max 71 mm 52-71 Amplitude Rapid) [place] 330192-02-28 02:07:26 Test Item Value Reference Range Interpretation Comments G-value Rapid (test code = G-value 12.1 5.0-11.6 Rapid) [place] 330192-02-28 02:07:26 Test Item Value Reference Range Interpretation Comments Estimated % Lysis Rapid 0.8 See_Comment [Au tomated message] The (test code = Estimated syste m which generated % Lysis Rapid) this result t ransmitted reference range : <=7.5. The reference r caleb was not used to int erpret this result as normal/abnormal . [place] 330192-02-28 02:07:26 Test Item Value Reference Range Interpretation Comments PT (test code = PT) 12.5 s 12.0-14.7 [place] [address]-02-28 02:07:26 Test Item Value Reference Range Interpretation Comments INR (test code = INR) 0.94 1 0.85-1.17 [place] [address]-02-28 02:07:26 Test Item Value Reference Range Interpretation Comments PTT (test code = PTT) 29.6 s 22.9-35.8 [place] [address]-02-28 02:07:26 Test Item Value Reference Range Interpretation Comments Segs (test code = Segs) 57.2 45.0-75.0 [place] [address]-02-28 02:07:26 Test Item Value Reference Range Interpretation Comments Lymphocytes (test code = Lymphocytes) 30.9 20.0-40.0 [place] [address]-02-28 02:07:26 Test Item Value Reference Range Interpretation Comments Monocytes (test code = Monocytes) 5.6 2.0-12.0 [place] [address]-02-28 02:07:26 Test Item Value Reference Range Interpretation Comments Eosinophils (test code = 5.6 See_Comment [A utomated message] The Eosinophils) system which ge nerated this result tra nsmitted reference range : <=4.0. The reference r caleb was not used to int erpret this result as normal/abnormal . [place] 330192-02-28 02:07:26 Test Item Value Reference Range Interpretation Comments Basophils (test code = 0.7 See_Comment [Aut omated message] The Basophils) system which ge nerated this result tra nsmitted reference range : <=1.0. The reference r caleb was not used to int erpret this result as normal/abnormal . [place] 330192-02-28 02:07:26 Test Item Value Reference Range Interpretation Comments Neutrophils # (test code = Neutrophils 4.3 1.5-8.1 #) [place] 330192-02-28 02:07:26 Test Item Value Reference Range Interpretation Comments Lymphocytes # (test code = Lymphocytes 2.3 1.0-5.5 #) [place] 330192-02-28 02:07:26 Test Item Value Reference Range Interpretation Comments Monocytes # (test code 0.4 See_Comment [Aut omated message] The = Monocytes #) system which generated this result tra nsmitted reference range : <=0.8. The reference r caleb was not used to int erpret this result as normal/abnormal . [place] 330192-02-28 02:07:26 Test Item Value Reference Range Interpretation Comments Eosinophils # (test code 0.4 See_Comment [A utomated message] The = Eosinophils #) system whic h generated this result tra nsmitted reference range : <=0.5. The reference r caleb was not used to int erpret this result as normal/abnormal . [facility]ldfDOHVXYSFPR4568-04-26 02:07:26 Test Item Value Reference Range Interpretation Comments Coronavirus (COVID-19) Not Detected (10/08/21 LIZBETH (test code = 8:07 PM) Coronavirus (COVID-19) LIZBETH) [place]1572-02-28 02:07:26 Test Item Value Reference Range Interpretation Comments Glucose Lvl (test code = Glucose Lvl) 95 70-99 [place] 261572-02-28 02:07:26 Test Item Value Reference Range Interpretation Comments BUN (test code = BUN) 13 - [place] 261572-02-28 02:07:26 Test Item Value Reference Range Interpretation Comments Creatinine Lvl (test code = Creatinine 1.24 0.50-1.40 Lvl) [place] 261572-02-28 02:07:26 Test Item Value Reference Range Interpretation Comments Sodium Lvl (test code = Sodium Lvl) 140 135-145 [place] 261572-02-28 02:07:26 Test Item Value Reference Range Interpretation Comments Potassium Lvl (test code = Potassium 3.7 3.5-5.1 Lvl) [place] 261572-02-28 02:07:26 Test Item Value Reference Range Interpretation Comments Chloride Lvl (test code = Chloride Lvl) 106 95-109 [place] 261572-02-28 02:07:26 Test Item Value Reference Range Interpretation Comments CO2 (test code = CO2) 30 24-32 [facility]2022-02-28 02:07:26 Test Item Value Reference Range Interpretation Comments Calcium Lvl (test code = Calcium Lvl) 9.5 8.5-10.5 [facility]2022-02-28 02:07:26 Test Item Value Reference Range Interpretation Comments AGAP (test code = AGAP) 7.7 10.0-20.0 [place] 261572-02-28 02:07:26 Test Item Value Reference Range Interpretation Comments eGFR (test code = eGFR) 72 [place] 330192-02-28 02:07:26 Test Item Value Reference Range Interpretation Comments WBC X 10x3 (test code = WBC X 10x3) 7.4 3.7-10.4 [place] 330192-02-28 02:07:26 Test Item Value Reference Range Interpretation Comments RBC X 10x6 (test code = RBC X 10x6) 5.06 4.70-6.10 [place] 330192-02-28 02:07:26 Test Item Value Reference Range Interpretation Comments Hgb (test code = Hgb) 14.0 14.0-18.0 [place] [address]-02-28 02:07:26 Test Item Value Reference Range Interpretation Comments Hct (test code = Hct) 43.5 42.0-54.0 [place] 330192-02-28 02:07:26 Test Item Value Reference Range Interpretation Comments MCV (test code = MCV) 85.9 80.0-94.0 [place] [address]-02-28 02:07:26 Test Item Value Reference Range Interpretation Comments MCH (test code = MCH) 27.7 pg 27.0-31.0 [place] [address]-02-28 02:07:26 Test Item Value Reference Range Interpretation Comments MCHC (test code = MCHC) 32.3 32.0-36.0 [place] [address]-02-28 02:07:26 Test Item Value Reference Range Interpretation Comments RDW (test code = RDW) 13.9 11.5-14.5 [place] [address]-02-28 02:07:26 Test Item Value Reference Range Interpretation Comments Platelet (test code = Platelet) 192 133-450 [place] [address]-02-28 02:07:26 Test Item Value Reference Range Interpretation Comments MPV (test code = MPV) 9.1 7.4-10.4 [place] [address]-02-28 02:07:26 Test Item Value Reference Range Interpretation Comments ACT (TEG) Rapid (test code = ACT (TEG) 128 s 86-118 Rapid) [place] [address]-02-28 02:07:26 Test Item Value Reference Range Interpretation Comments Split Point Rapid (test code = Split 0.7 min Point Rapid) [place] [address]-02-28 02:07:26 Test Item Value Reference Range Interpretation Comments R-time Rapid (test code = R-time 0.8 min 0.4-0.7 Rapid) [address]02-28 02:07:26 Test Item Value Reference Range Interpretation Comments K-time Rapid (test code = K-time 1.1 min 0.6-2.3 Rapid) [place] [address]-02-28 02:07:26 Test Item Value Reference Range Interpretation Comments Angle Rapid (test code = Angle 76 degrees 64-80 Rapid) [place] [address]-02-28 02:07:26 Test Item Value Reference Range Interpretation Comments Max Amplitude Rapid (test code = Max 71 mm 52-71 Amplitude Rapid) [place] [address]-02-28 02:07:26 Test Item Value Reference Range Interpretation Comments G-value Rapid (test code = G-value 12.1 5.0-11.6 Rapid) [place] [address]-02-28 02:07:26 Test Item Value Reference Range Interpretation Comments Estimated % Lysis Rapid 0.8 See_Comment [Au tomated message] The (test code = Estimated syste m which generated % Lysis Rapid) this result t ransmitted reference range : <=7.5. The reference r caleb was not used to int erpret this result as normal/abnormal . [place] 330192-02-28 02:07:26 Test Item Value Reference Range Interpretation Comments PT (test code = PT) 12.5 s 12.0-14.7 [place] [address]-02-28 02:07:26 Test Item Value Reference Range Interpretation Comments INR (test code = INR) 0.94 1 0.85-1.17 [place] 330192-02-28 02:07:26 Test Item Value Reference Range Interpretation Comments PTT (test code = PTT) 29.6 s 22.9-35.8 [place] 330192-02-28 02:07:26 Test Item Value Reference Range Interpretation Comments Segs (test code = Segs) 57.2 45.0-75.0 [place] 330192-02-28 02:07:26 Test Item Value Reference Range Interpretation Comments Lymphocytes (test code = Lymphocytes) 30.9 20.0-40.0 [place] 330192-02-28 02:07:26 Test Item Value Reference Range Interpretation Comments Monocytes (test code = Monocytes) 5.6 2.0-12.0 [place] 330192-02-28 02:07:26 Test Item Value Reference Range Interpretation Comments Eosinophils (test code = 5.6 See_Comment [A utomated message] The Eosinophils) system which ge nerated this result tra nsmitted reference range : <=4.0. The reference r caleb was not used to int erpret this result as normal/abnormal . [facility]LkotlidOJOMAKUSWN7753-40-82 02:07:26 Test Item Value Reference Range Interpretation Comments Basophils (test code = 0.7 See_Comment [Aut omated message] The Basophils) system which ge nerated this result tra nsmitted reference range : <=1.0. The reference r caleb was not used to int erpret this result as normal/abnormal . [place] 330192-02-28 02:07:26 Test Item Value Reference Range Interpretation Comments Neutrophils # (test code = Neutrophils 4.3 1.5-8.1 #) [place] 330192-02-28 02:07:26 Test Item Value Reference Range Interpretation Comments Lymphocytes # (test code = Lymphocytes 2.3 1.0-5.5 #) [place] [address]-02-28 02:07:26 Test Item Value Reference Range Interpretation Comments Monocytes # (test code 0.4 See_Comment [Aut omated message] The = Monocytes #) system which generated this result tra nsmitted reference range : <=0.8. The reference r caleb was not used to int erpret this result as normal/abnormal . [facility] CenterIjylezlMUCTIUDIPA9683-08-89 02:07:26 Test Item Value Reference Range Interpretation Comments Eosinophils # (test code 0.4 See_Comment [A utomated message] The = Eosinophils #) system whic h generated this result tra nsmitted reference range : <=0.5. The reference r caleb was not used to int erpret this result as normal/abnormal . [facility] CenterJhbapnlQCSWEEUUIM4997-72-80 02:07:26 Test Item Value Reference Range Interpretation Comments Coronavirus (COVID-19) Not Detected (10/08/21 LIZBETH (test code = 8:07 PM) Coronavirus (COVID-19) LIZBETH) [facility] hiogi [id number] 01:55:00 Test Item Value Reference Range Interpretation Comments ABO/Rh (test code = ABO/Rh) [facility] [place] [id number] 01:55:00 Test Item Value Reference Range Interpretation Comments Antibody Scrn (test Negative (10/08/21 7:55 code = Antibody Scrn) PM) [facility] [id number] 01:55:00 Test Item Value Reference Range Interpretation Comments ABO/Rh (test code = ABO/Rh) [place] [id number] 01:55:00 Test Item Value Reference Range Interpretation Comments Antibody Scrn (test Negative (10/08/21 7:55 code = Antibody Scrn) PM) [facility]2022-02-22 19:46:00 Test Item Value Reference Range Interpretation Comments Glucose Lvl (test code = Glucose Lvl) 133 70-99 [facility] [employer]2022-02-22 19:46:00 Test Item Value Reference Range Interpretation Comments BUN (test code = BUN) 14 7-22 [facility]2022-02-22 19:46:00 Test Item Value Reference Range Interpretation Comments Creatinine Lvl (test code = Creatinine 1.22 0.50-1.40 Lvl) [facility]2022-02-22 19:46:00 Test Item Value Reference Range Interpretation Comments Sodium Lvl (test code = Sodium Lvl) 138 135-145 [facility]2022-02-22 19:46:00 Test Item Value Reference Range Interpretation Comments Potassium Lvl (test code = Potassium 4.1 3.5-5.1 Lvl) [place]1572-02-22 19:46:00 Test Item Value Reference Range Interpretation Comments Chloride Lvl (test code = Chloride Lvl) 108 95-109 [place] 261572-02-22 19:46:00 Test Item Value Reference Range Interpretation Comments CO2 (test code = CO2) 26 24-32 [place] 261572-02-22 19:46:00 Test Item Value Reference Range Interpretation Comments Calcium Lvl (test code = Calcium Lvl) 8.6 8.5-10.5 [place] 261572-02-22 19:46:00 Test Item Value Reference Range Interpretation Comments AGAP (test code = AGAP) 8.1 10.0-20.0 [place] 261572-02-22 19:46:00 Test Item Value Reference Range Interpretation Comments eGFR (test code = eGFR) 73 [place] 330192-02-22 19:46:00 Test Item Value Reference Range Interpretation Comments WBC (test code = WBC) 6.2 3.7-10.4 [place] 330192-02-22 19:46:00 Test Item Value Reference Range Interpretation Comments RBC (test code = RBC) 4.91 4.70-6.10 [place] 330192-02-22 19:46:00 Test Item Value Reference Range Interpretation Comments Hgb (test code = Hgb) 13.7 14.0-18.0 [place] 330192-02-22 19:46:00 Test Item Value Reference Range Interpretation Comments Hct (test code = Hct) 42.1 42.0-54.0 [place] 330192-02-22 19:46:00 Test Item Value Reference Range Interpretation Comments MCV (test code = MCV) 85.8 80.0-94.0 [place] [address]-02-22 19:46:00 Test Item Value Reference Range Interpretation Comments MCH (test code = MCH) 27.9 pg 27.0-31.0 [place] 330192-02-22 19:46:00 Test Item Value Reference Range Interpretation Comments MCHC (test code = MCHC) 32.6 32.0-36.0 [place] 330192-02-22 19:46:00 Test Item Value Reference Range Interpretation Comments RDW (test code = RDW) 14.3 11.5-14.5 [place] 330192-02-22 19:46:00 Test Item Value Reference Range Interpretation Comments Platelet (test code = Platelet) 153 133-450 [place] 330192-02-22 19:46:00 Test Item Value Reference Range Interpretation Comments MPV (test code = MPV) 9.5 7.4-10.4 [place] 330192-02-22 19:46:00 Test Item Value Reference Range Interpretation Comments PT (test code = PT) 12.2 s 12.0-14.7 [place] 330192-02-22 19:46:00 Test Item Value Reference Range Interpretation Comments INR (test code = INR) 0.91 1 0.85-1.17 [place] 330192-02-22 19:46:00 Test Item Value Reference Range Interpretation Comments PTT (test code = PTT) 27.1 s 22.9-35.8 [place] 330192-02-22 19:46:00 Test Item Value Reference Range Interpretation Comments Plt Morph (test code = Normal (10/03/21 1:46 Plt Morph) PM) [facility] CenterWznknttDLSACIXUJW4057-48-83 19:46:00 Test Item Value Reference Range Interpretation Comments Segs (test code = Segs) 83.7 45.0-75.0 [place] 330192-02-22 19:46:00 Test Item Value Reference Range Interpretation Comments Lymphocytes (test code = Lymphocytes) 12.3 20.0-40.0 [place] 330192-02-22 19:46:00 Test Item Value Reference Range Interpretation Comments Monocytes (test code = Monocytes) 1.6 2.0-12.0 [place] 330192-02-22 19:46:00 Test Item Value Reference Range Interpretation Comments Eosinophils (test code = 2.0 See_Comment [A utomated message] The Eosinophils) system which ge nerated this result tra nsmitted reference range : <=4.0. The reference r caleb was not used to int erpret this result as normal/abnormal . [facility]pOSRCPDEPQS[facility]19[facility]84-[facility] 19:46:00 Test Item Value Reference Range Interpretation Comments Basophils (test code = 0.4 See_Comment [Aut omated message] The Basophils) system which ge nerated this result tra nsmitted reference range : <=1.0. The reference r caleb was not used to int erpret this result as normal/abnormal . [facility] CenterYxsuicoRBNPUVQFPA2452-09-41 19:46:00 Test Item Value Reference Range Interpretation Comments Neutrophils # (test code = Neutrophils 5.2 1.5-8.1 #) [facility] CenterSdtiejqLRYHGGBJGF3999-01-25 19:46:00 Test Item Value Reference Range Interpretation Comments Lymphocytes # (test code = Lymphocytes 0.8 1.0-5.5 #) [place] 330192-02-22 19:46:00 Test Item Value Reference Range Interpretation Comments Monocytes # (test code 0.1 See_Comment [Aut omated message] The = Monocytes #) system which generated this result tra nsmitted reference range : <=0.8. The reference r caleb was not used to int erpret this result as normal/abnormal . [place] 330192-02-22 19:46:00 Test Item Value Reference Range Interpretation Comments Eosinophils # (test code 0.1 See_Comment [A utomated message] The = Eosinophils #) system whic h generated this result tra nsmitted reference range : <=0.5. The reference r caleb was not used to int erpret this result as normal/abnormal . [facility]2022-02-22 19:46:00 Test Item Value Reference Range Interpretation Comments Glucose Lvl (test code = Glucose Lvl) 133 70-99 [place] 261572-02-22 19:46:00 Test Item Value Reference Range Interpretation Comments BUN (test code = BUN) 14 7-22 [place] 261572-02-22 19:46:00 Test Item Value Reference Range Interpretation Comments Creatinine Lvl (test code = Creatinine 1.22 0.50-1.40 Lvl) [place] 261572-02-22 19:46:00 Test Item Value Reference Range Interpretation Comments Sodium Lvl (test code = Sodium Lvl) 138 135-145 [place] 261572-02-22 19:46:00 Test Item Value Reference Range Interpretation Comments Potassium Lvl (test code = Potassium 4.1 3.5-5.1 Lvl) [place] 261572-02-22 19:46:00 Test Item Value Reference Range Interpretation Comments Chloride Lvl (test code = Chloride Lvl) 108 95-109 [place] 261572-02-22 19:46:00 Test Item Value Reference Range Interpretation Comments CO2 (test code = CO2) 26 24-32 [place] 261572-02-22 19:46:00 Test Item Value Reference Range Interpretation Comments Calcium Lvl (test code = Calcium Lvl) 8.6 8.5-10.5 [place] 261572-02-22 19:46:00 Test Item Value Reference Range Interpretation Comments AGAP (test code = AGAP) 8.1 10.0-20.0 [place] 261572-02-22 19:46:00 Test Item Value Reference Range Interpretation Comments eGFR (test code = eGFR) 73 [place] 330192-02-22 19:46:00 Test Item Value Reference Range Interpretation Comments WBC (test code = WBC) 6.2 3.7-10.4 [place] 330192-02-22 19:46:00 Test Item Value Reference Range Interpretation Comments RBC (test code = RBC) 4.91 4.70-6.10 [place] 330192-02-22 19:46:00 Test Item Value Reference Range Interpretation Comments Hgb (test code = Hgb) 13.7 14.0-18.0 [place] [address]-02-22 19:46:00 Test Item Value Reference Range Interpretation Comments Hct (test code = Hct) 42.1 42.0-54.0 [place] [address]-02-22 19:46:00 Test Item Value Reference Range Interpretation Comments MCV (test code = MCV) 85.8 80.0-94.0 [place] [address]-02-22 19:46:00 Test Item Value Reference Range Interpretation Comments MCH (test code = MCH) 27.9 pg 27.0-31.0 [place] 330192-02-22 19:46:00 Test Item Value Reference Range Interpretation Comments MCHC (test code = MCHC) 32.6 32.0-36.0 [place] 330192-02-22 19:46:00 Test Item Value Reference Range Interpretation Comments RDW (test code = RDW) 14.3 11.5-14.5 [place] 330192-02-22 19:46:00 Test Item Value Reference Range Interpretation Comments Platelet (test code = Platelet) 153 133-450 [place] 330192-02-22 19:46:00 Test Item Value Reference Range Interpretation Comments MPV (test code = MPV) 9.5 7.4-10.4 [place] 330192-02-22 19:46:00 Test Item Value Reference Range Interpretation Comments PT (test code = PT) 12.2 s 12.0-14.7 [place] 330192-02-22 19:46:00 Test Item Value Reference Range Interpretation Comments INR (test code = INR) 0.91 1 0.85-1.17 [place] 330192-02-22 19:46:00 Test Item Value Reference Range Interpretation Comments PTT (test code = PTT) 27.1 s 22.9-35.8 [place] 330192-02-22 19:46:00 Test Item Value Reference Range Interpretation Comments Plt Morph (test code = Normal (10/03/21 1:46 Plt Morph) PM) [place] 330192-02-22 19:46:00 Test Item Value Reference Range Interpretation Comments Segs (test code = Segs) 83.7 45.0-75.0 [place] 330192-02-22 19:46:00 Test Item Value Reference Range Interpretation Comments Lymphocytes (test code = Lymphocytes) 12.3 20.0-40.0 [place] 330192-02-22 19:46:00 Test Item Value Reference Range Interpretation Comments Monocytes (test code = Monocytes) 1.6 2.0-12.0 [place] 330192-02-22 19:46:00 Test Item Value Reference Range Interpretation Comments Eosinophils (test code = 2.0 See_Comment [A utomated message] The Eosinophils) system which ge nerated this result tra nsmitted reference range : <=4.0. The reference r caleb was not used to int erpret this result as normal/abnormal . [place] 330192-02-22 19:46:00 Test Item Value Reference Range Interpretation Comments Basophils (test code = 0.4 See_Comment [Aut omated message] The Basophils) system which ge nerated this result tra nsmitted reference range : <=1.0. The reference r caleb was not used to int erpret this result as normal/abnormal . [facility] CenterOjhiqmaZBSHGWXRTP9816-96-25 19:46:00 Test Item Value Reference Range Interpretation Comments Neutrophils # (test code = Neutrophils 5.2 1.5-8.1 #) [facility] CenterNwqbkcxRSYVHALBRP1762-69-50 19:46:00 Test Item Value Reference Range Interpretation Comments Lymphocytes # (test code = Lymphocytes 0.8 1.0-5.5 #) [facility] CenterIynurzqUYDLHOLWCE6100-49-66 19:46:00 Test Item Value Reference Range Interpretation Comments Monocytes # (test code 0.1 See_Comment [Aut omated message] The = Monocytes #) system which generated this result tra nsmitted reference range : <=0.8. The reference r caleb was not used to int erpret this result as normal/abnormal . [facility] CenterDmslqbiJYPGFYUQVJ8193-25-80 19:46:00 Test Item Value Reference Range Interpretation Comments Eosinophils # (test code 0.1 See_Comment [A utomated message] The = Eosinophils #) system whic h generated this result tra nsmitted reference range : <=0.5. The reference r caleb was not used to int erpret this result as normal/abnormal . [facility] hiogi [id number] 17:31:00 Test Item Value Reference Range Interpretation Comments ABO/Rh (test code = ABO/Rh) O POS [facility] hiogi [id number] 17:31:00 Test Item Value Reference Range Interpretation Comments Antibody Scrn (test Negative (10/02/21 code = Antibody Scrn) 11:31 AM) [facility] [id number] 17:31:00 Test Item Value Reference Range Interpretation Comments Glucose Lvl (test code = Glucose Lvl) 92 70-99 [facility] [id number] 17:31:00 Test Item Value Reference Range Interpretation Comments BUN (test code = BUN) 17 7- [facility] QIDUK9866-14-02 17:31:00 Test Item Value Reference Range Interpretation Comments Creatinine Lvl (test code = Creatinine 1.21 0.50-1.40 Lvl) [place] 261572-02-21 17:31:00 Test Item Value Reference Range Interpretation Comments Sodium Lvl (test code = Sodium Lvl) 140 135-145 [place] 261572-02-21 17:31:00 Test Item Value Reference Range Interpretation Comments Potassium Lvl (test code = Potassium 4.2 3.5-5.1 Lvl) [place] 261572-02-21 17:31:00 Test Item Value Reference Range Interpretation Comments Chloride Lvl (test code = Chloride Lvl) 108 95-109 [place] 261572-02-21 17:31:00 Test Item Value Reference Range Interpretation Comments CO2 (test code = CO2) 26 24-32 [place] 261572-02-21 17:31:00 Test Item Value Reference Range Interpretation Comments Calcium Lvl (test code = Calcium Lvl) 9.4 8.5-10.5 [place] 261572-02-21 17:31:00 Test Item Value Reference Range Interpretation Comments AGAP (test code = AGAP) 10.2 10.0-20.0 [place] 261572-02-21 17:31:00 Test Item Value Reference Range Interpretation Comments eGFR (test code = eGFR) 74 [place] 330192-02-21 17:31:00 Test Item Value Reference Range Interpretation Comments PTT (test code = PTT) 28.1 s 22.9-35.8 [place] [address]-02-21 17:31:00 Test Item Value Reference Range Interpretation Comments PT (test code = PT) 11.8 s 12.0-14.7 [place] [address]-02-21 17:31:00 Test Item Value Reference Range Interpretation Comments INR (test code = INR) 0.87 1 0.85-1.17 [place] [address]-02-21 17:31:00 Test Item Value Reference Range Interpretation Comments WBC (test code = WBC) 5.4 3.7-10.4 [place] [address]-02-21 17:31:00 Test Item Value Reference Range Interpretation Comments RBC (test code = RBC) 4.90 4.70-6.10 [place] 330192-02-21 17:31:00 Test Item Value Reference Range Interpretation Comments Hgb (test code = Hgb) 13.7 14.0-18.0 [place] 330192-02-21 17:31:00 Test Item Value Reference Range Interpretation Comments Hct (test code = Hct) 42.0 42.0-54.0 [place] 330192-02-21 17:31:00 Test Item Value Reference Range Interpretation Comments MCV (test code = MCV) 85.6 80.0-94.0 [place] 330192-02-21 17:31:00 Test Item Value Reference Range Interpretation Comments MCH (test code = MCH) 27.9 pg 27.0-31.0 [place] 330192-02-21 17:31:00 Test Item Value Reference Range Interpretation Comments MCHC (test code = MCHC) 32.6 32.0-36.0 [place] 330192-02-21 17:31:00 Test Item Value Reference Range Interpretation Comments RDW (test code = RDW) 14.1 11.5-14.5 [place] 330192-02-21 17:31:00 Test Item Value Reference Range Interpretation Comments Platelet (test code = Platelet) 173 133-450 [place] 330192-02-21 17:31:00 Test Item Value Reference Range Interpretation Comments MPV (test code = MPV) 10.1 7.4-10.4 [place] 330192-02-21 17:31:00 Test Item Value Reference Range Interpretation Comments Segs (test code = Segs) 54.1 45.0-75.0 [place] 330192-02-21 17:31:00 Test Item Value Reference Range Interpretation Comments Lymphocytes (test code = Lymphocytes) 30.9 20.0-40.0 [place] [address]-02-21 17:31:00 Test Item Value Reference Range Interpretation Comments Monocytes (test code = Monocytes) 6.7 2.0-12.0 [place] [address]-02-21 17:31:00 Test Item Value Reference Range Interpretation Comments Eosinophils (test code = 7.7 See_Comment [A utomated message] The Eosinophils) system which ge nerated this result tra nsmitted reference range : <=4.0. The reference r caleb was not used to int erpret this result as normal/abnormal . [facility] CenterNoicmshCYXOMDWIIC6306-86-63 17:31:00 Test Item Value Reference Range Interpretation Comments Basophils (test code = 0.6 See_Comment [Aut omated message] The Basophils) system which ge nerated this result tra nsmitted reference range : <=1.0. The reference r caleb was not used to int erpret this result as normal/abnormal . [facility] 17:31:00 Test Item Value Reference Range Interpretation Comments Neutrophils # (test code = Neutrophils 2.9 1.5-8.1 #) [facility]riwrohIOLRBOSQYO4056-63-56 17:31:00 Test Item Value Reference Range Interpretation Comments Lymphocytes # (test code = Lymphocytes 1.7 1.0-5.5 #) [facility]kucaieOAMFJMRSMS4753-22-86 17:31:00 Test Item Value Reference Range Interpretation Comments Monocytes # (test code 0.4 See_Comment [Aut omated message] The = Monocytes #) system which generated this result tra nsmitted reference range : <=0.8. The reference r caleb was not used to int erpret this result as normal/abnormal . [facility] CenterJxrzhltRHZUNJVBWG8885-88-81 17:31:00 Test Item Value Reference Range Interpretation Comments Eosinophils # (test code 0.4 See_Comment [A utomated message] The = Eosinophils #) system whic h generated this result tra nsmitted reference range : <=0.5. The reference r caleb was not used to int erpret this result as normal/abnormal . [facility] CenterArbzvydWVGKRNVQHX9596-47-09 17:31:00 Test Item Value Reference Range Interpretation Comments Coronavirus (COVID-19) Not Detected (10/02/21 LIZ[place]ETH (test code = 11:31 AM) Coronavirus (COVID-19) LIZBETH) [facility] [id number] 17:31:00 Test Item Value Reference Range Interpretation Comments Hgb A1C (test code = Hgb A1C) 5.7 [facility] [id number] 17:31:00 Test Item Value Reference Range Interpretation Comments ABO/Rh (test code = ABO/Rh) O POS [facility] hiogi [id number] 17:31:00 Test Item Value Reference Range Interpretation Comments Antibody Scrn (test Negative (10/02/21 code = Antibody Scrn) 11:31 AM) [place] 261572-02-21 17:31:00 Test Item Value Reference Range Interpretation Comments Glucose Lvl (test code = Glucose Lvl) 92 70-99 [place] 261572-02-21 17:31:00 Test Item Value Reference Range Interpretation Comments BUN (test code = BUN) 17 7- [place] 261572-02-21 17:31:00 Test Item Value Reference Range Interpretation Comments Creatinine Lvl (test code = Creatinine 1.21 0.50-1.40 Lvl) [place] 261572-02-21 17:31:00 Test Item Value Reference Range Interpretation Comments Sodium Lvl (test code = Sodium Lvl) 140 135-145 [place] 261572-02-21 17:31:00 Test Item Value Reference Range Interpretation Comments Potassium Lvl (test code = Potassium 4.2 3.5-5.1 Lvl) [place] 261572-02-21 17:31:00 Test Item Value Reference Range Interpretation Comments Chloride Lvl (test code = Chloride Lvl) 108 95-109 [place] 261572-02-21 17:31:00 Test Item Value Reference Range Interpretation Comments CO2 (test code = CO2) 26 24-32 [place] 261572-02-21 17:31:00 Test Item Value Reference Range Interpretation Comments Calcium Lvl (test code = Calcium Lvl) 9.4 8.5-10.5 [place] 261572-02-21 17:31:00 Test Item Value Reference Range Interpretation Comments AGAP (test code = AGAP) 10.2 10.0-20.0 [place] 261572-02-21 17:31:00 Test Item Value Reference Range Interpretation Comments eGFR (test code = eGFR) 74 [place] 330192-02-21 17:31:00 Test Item Value Reference Range Interpretation Comments PTT (test code = PTT) 28.1 s 22.9-35.8 [place] 330192-02-21 17:31:00 Test Item Value Reference Range Interpretation Comments PT (test code = PT) 11.8 s 12.0-14.7 [place] 330192-02-21 17:31:00 Test Item Value Reference Range Interpretation Comments INR (test code = INR) 0.87 1 0.85-1.17 [place] 330192-02-21 17:31:00 Test Item Value Reference Range Interpretation Comments WBC (test code = WBC) 5.4 3.7-10.4 [place] 330192-02-21 17:31:00 Test Item Value Reference Range Interpretation Comments RBC (test code = RBC) 4.90 4.70-6.10 [place] 330192-02-21 17:31:00 Test Item Value Reference Range Interpretation Comments Hgb (test code = Hgb) 13.7 14.0-18.0 [place] 330192-02-21 17:31:00 Test Item Value Reference Range Interpretation Comments Hct (test code = Hct) 42.0 42.0-54.0 [place] 330192-02-21 17:31:00 Test Item Value Reference Range Interpretation Comments MCV (test code = MCV) 85.6 80.0-94.0 [place] 330192-02-21 17:31:00 Test Item Value Reference Range Interpretation Comments MCH (test code = MCH) 27.9 pg 27.0-31.0 [facility] CenterDyaddcnCQXLLNJSIE9869-03-65 17:31:00 Test Item Value Reference Range Interpretation Comments MCHC (test code = MCHC) 32.6 32.0-36.0 [place] 330192-02-21 17:31:00 Test Item Value Reference Range Interpretation Comments RDW (test code = RDW) 14.1 11.5-14.5 [place] 330192-02-21 17:31:00 Test Item Value Reference Range Interpretation Comments Platelet (test code = Platelet) 173 133-450 [place] 330192-02-21 17:31:00 Test Item Value Reference Range Interpretation Comments MPV (test code = MPV) 10.1 7.4-10.4 [place] 330192-02-21 17:31:00 Test Item Value Reference Range Interpretation Comments Segs (test code = Segs) 54.1 45.0-75.0 [place] 330192-02-21 17:31:00 Test Item Value Reference Range Interpretation Comments Lymphocytes (test code = Lymphocytes) 30.9 20.0-40.0 [facility] CenterBrqwstxHHUCHWGUGG7965-75-00 17:31:00 Test Item Value Reference Range Interpretation Comments Monocytes (test code = Monocytes) 6.7 2.0-12.0 [facility] CenterTtdrlqvHQRCJAHKMR2467-59-86 17:31:00 Test Item Value Reference Range Interpretation Comments Eosinophils (test code = 7.7 See_Comment [A utomated message] The Eosinophils) system which ge nerated this result tra nsmitted reference range : <=4.0. The reference r caleb was not used to int erpret this result as normal/abnormal . [facility] CenterSflrzjbHHUHULJOUH5347-03-18 17:31:00 Test Item Value Reference Range Interpretation Comments Basophils (test code = 0.6 See_Comment [Aut omated message] The Basophils) system which ge nerated this result tra nsmitted reference range : <=1.0. The reference r caleb was not used to int erpret this result as normal/abnormal . [facility] CenterCptgbqbBISUZVCXAU6801-21-06 17:31:00 Test Item Value Reference Range Interpretation Comments Neutrophils # (test code = Neutrophils 2.9 1.5-8.1 #) [facility] CenterRzxozagOVHCLKVXCB4885-60-55 17:31:00 Test Item Value Reference Range Interpretation Comments Lymphocytes # (test code = Lymphocytes 1.7 1.0-5.5 #) [facility] CenterSrmhyupCATWQBYQWR7969-51-63 17:31:00 Test Item Value Reference Range Interpretation Comments Monocytes # (test code 0.4 See_Comment [Aut omated message] The = Monocytes #) system which generated this result tra nsmitted reference range : <=0.8. The reference r caleb was not used to int erpret this result as normal/abnormal . [facility] CenterGnoaatsJNYLYDSKWL9363-17-10 17:31:00 Test Item Value Reference Range Interpretation Comments Eosinophils # (test code 0.4 See_Comment [A utomated message] The = Eosinophils #) system whic h generated this result tra nsmitted reference range : <=0.5. The reference r caleb was not used to int erpret this result as normal/abnormal . [facility] CenterRgduhyiKTMNGMJZWX8546-63-49 17:31:00 Test Item Value Reference Range Interpretation Comments Coronavirus (COVID-19) Not Detected (10/02/21 LIZBETH (test code = 11:31 AM) Coronavirus (COVID-19) LIZBETH) [facility] [id number] 17:31:00 Test Item Value Reference Range Interpretation Comments Hgb A1C (test code = Hgb A1C) 5.7 [facility]SAJDU1407[facility] 07:37:00 Test Item Value Reference Range Interpretation Comments Sed Rate (test code = 2 See_Comment [Auto mated message] The Sed Rate) system which ge nerated this result transmit leydi reference range : <=15. The reference range was not used to interpr et this result as krishna l/abnormal. [facility] CenterTcvruldVBNVKGTLMM7806-03-30 07:37:00 Test Item Value Reference Range Interpretation Comments C-REACTIVE PROTEIN (test code = 8.4 C-REACTIVE PROTEIN) [facility] CenterBqjkyxiFDXJOUXWUW6310-68-59 07:37:00 Test Item Value Reference Range Interpretation Comments Sed Rate (test code = 2 See_Comment [Auto mated message] The Sed Rate) system which ge nerated this result transmit leydi reference range : <=15. The reference range was not used to interpr et this result as krishna l/abnormal. [facility] CenterXctqmshMBHXAEYOLI2571-37-00 07:37:00 Test Item Value Reference Range Interpretation Comments C-REACTIVE PROTEIN (test code = 8.4 C-REACTIVE PROTEIN) [facility]2021-09-30 01:10:00 Test Item Value Reference Range Interpretation Comments Glucose Lvl (test code = Glucose Lvl) 115 70-99 [facility]2021-09-30 01:10:00 Test Item Value Reference Range Interpretation Comments BUN (test code = BUN) 13 7-22 [facility]2021-09-30 01:10:00 Test Item Value Reference Range Interpretation Comments Creatinine Lvl (test code = Creatinine 1.21 0.50-1.40 Lvl) [facility]2021-09-30 01:10:00 Test Item Value Reference Range Interpretation Comments Sodium Lvl (test code = Sodium Lvl) 141 135-145 [facility]2021-09-30 01:10:00 Test Item Value Reference Range Interpretation Comments Potassium Lvl (test code = Potassium 3.8 3.5-5.1 Lvl) [facility]2021-09-30 01:10:00 Test Item Value Reference Range Interpretation Comments Chloride Lvl (test code = Chloride Lvl) 110 95-109 [place] 261571-09-30 01:10:00 Test Item Value Reference Range Interpretation Comments CO2 (test code = CO2) 25 24-32 [place] 261571-09-30 01:10:00 Test Item Value Reference Range Interpretation Comments Calcium Lvl (test code = Calcium Lvl) 9.1 8.5-10.5 [place] 261571-09-30 01:10:00 Test Item Value Reference Range Interpretation Comments AGAP (test code = AGAP) 9.8 10.0-20.0 [place] 261571-09-30 01:10:00 Test Item Value Reference Range Interpretation Comments eGFR (test code = eGFR) 74 [place] 330191-09-30 01:10:00 Test Item Value Reference Range Interpretation Comments WBC X 10x3 (test code = WBC X 10x3) 5.9 3.7-10.4 [place] 330191-09-30 01:10:00 Test Item Value Reference Range Interpretation Comments RBC X 10x6 (test code = RBC X 10x6) 4.92 4.70-6.10 [place] 330191-09-30 01:10:00 Test Item Value Reference Range Interpretation Comments Hgb (test code = Hgb) 13.8 14.0-18.0 [place] 330191-09-30 01:10:00 Test Item Value Reference Range Interpretation Comments Hct (test code = Hct) 41.8 42.0-54.0 [place] 330191-09-30 01:10:00 Test Item Value Reference Range Interpretation Comments MCV (test code = MCV) 84.9 80.0-94.0 [place] 330191-09-30 01:10:00 Test Item Value Reference Range Interpretation Comments MCH (test code = MCH) 28.0 pg 27.0-31.0 [place] 330191-09-30 01:10:00 Test Item Value Reference Range Interpretation Comments MCHC (test code = MCHC) 33.0 32.0-36.0 [place] 330191-09-30 01:10:00 Test Item Value Reference Range Interpretation Comments RDW (test code = RDW) 14.0 11.5-14.5 [place] 330191-09-30 01:10:00 Test Item Value Reference Range Interpretation Comments Platelet (test code = Platelet) 171 133-450 [place] 330191-09-30 01:10:00 Test Item Value Reference Range Interpretation Comments MPV (test code = MPV) 8.8 7.4-10.4 [place] 330191-09-30 01:10:00 Test Item Value Reference Range Interpretation Comments Segs (test code = Segs) 42.2 45.0-75.0 [place] 330191-09-30 01:10:00 Test Item Value Reference Range Interpretation Comments Lymphocytes (test code = Lymphocytes) 37.9 20.0-40.0 [place] 330191-09-30 01:10:00 Test Item Value Reference Range Interpretation Comments Monocytes (test code = Monocytes) 7.0 2.0-12.0 [place] 330191-09-30 01:10:00 Test Item Value Reference Range Interpretation Comments Eosinophils (test code = 11.6 See_Comment [A utomated message] The Eosinophils) system which ge nerated this result tra nsmitted reference range : <=4.0. The reference r caelb was not used to int erpret this result as normal/abnormal . [place] 330191-09-30 01:10:00 Test Item Value Reference Range Interpretation Comments Basophils (test code = 1.3 See_Comment [Aut omated message] The Basophils) system which ge nerated this result tra nsmitted reference range : <=1.0. The reference r caleb was not used to int erpret this result as normal/abnormal . [place] [id number] 01:10:00 Test Item Value Reference Range Interpretation Comments Neutrophils # (test code = Neutrophils 2.5 1.5-8.1 #) [place] [id number] 01:10:00 Test Item Value Reference Range Interpretation Comments Lymphocytes # (test code = Lymphocytes 2.2 1.0-5.5 #) [place] [id number] 01:10:00 Test Item Value Reference Range Interpretation Comments Monocytes # (test code 0.4 See_Comment [Aut omated message] The = Monocytes #) system which generated this result tra nsmitted reference range : <=0.8. The reference r caleb was not used to int erpret this result as normal/abnormal . [place] 330191-09-30 01:10:00 Test Item Value Reference Range Interpretation Comments Eosinophils # (test code 0.7 See_Comment [A utomated message] The = Eosinophils #) system whic h generated this result tra nsmitted reference range : <=0.5. The reference r caleb was not used to int erpret this result as normal/abnormal . [place] 330191-09-30 01:10:00 Test Item Value Reference Range Interpretation Comments Basophils # (test code 0.1 See_Comment [Aut omated message] The = Basophils #) system which generated this result tra nsmitted reference range : <=0.2. The reference r caleb was not used to int erpret this result as normal/abnormal . [place] 261571-09-30 01:10:00 Test Item Value Reference Range Interpretation Comments Glucose Lvl (test code = Glucose Lvl) 115 70-99 [place] 261571-09-30 01:10:00 Test Item Value Reference Range Interpretation Comments BUN (test code = BUN) 13 7-22 [place] 261571-09-30 01:10:00 Test Item Value Reference Range Interpretation Comments Creatinine Lvl (test code = Creatinine 1.21 0.50-1.40 Lvl) [place] 261571-09-30 01:10:00 Test Item Value Reference Range Interpretation Comments Sodium Lvl (test code = Sodium Lvl) 141 135-145 [place] 261571-09-30 01:10:00 Test Item Value Reference Range Interpretation Comments Potassium Lvl (test code = Potassium 3.8 3.5-5.1 Lvl) [place] 261571-09-30 01:10:00 Test Item Value Reference Range Interpretation Comments Chloride Lvl (test code = Chloride Lvl) 110 95-109 [place] 261571-09-30 01:10:00 Test Item Value Reference Range Interpretation Comments CO2 (test code = CO2) 25 24-32 [place] 261571-09-30 01:10:00 Test Item Value Reference Range Interpretation Comments Calcium Lvl (test code = Calcium Lvl) 9.1 8.5-10.5 [facility]2021-09-30 01:10:00 Test Item Value Reference Range Interpretation Comments AGAP (test code = AGAP) 9.8 10.0-20.0 [facility]2021-09-30 01:10:00 Test Item Value Reference Range Interpretation Comments eGFR (test code = eGFR) 74 [facility] 01:10:00 Test Item Value Reference Range Interpretation Comments WBC X 10x3 (test code = WBC X 10x3) 5.9 3.7-10.4 [place] 330191-09-30 01:10:00 Test Item Value Reference Range Interpretation Comments RBC X 10x6 (test code = RBC X 10x6) 4.92 4.70-6.10 [place] 330191-09-30 01:10:00 Test Item Value Reference Range Interpretation Comments Hgb (test code = Hgb) 13.8 14.0-18.0 [place] 330191-09-30 01:10:00 Test Item Value Reference Range Interpretation Comments Hct (test code = Hct) 41.8 42.0-54.0 [facility]hwAEHEAUAWIS9623-14-80 01:10:00 Test Item Value Reference Range Interpretation Comments MCV (test code = MCV) 84.9 80.0-94.0 [place] 330191-09-30 01:10:00 Test Item Value Reference Range Interpretation Comments MCH (test code = MCH) 28.0 pg 27.0-31.0 [place] 330191-09-30 01:10:00 Test Item Value Reference Range Interpretation Comments MCHC (test code = MCHC) 33.0 32.0-36.0 [place] 330191-09-30 01:10:00 Test Item Value Reference Range Interpretation Comments RDW (test code = RDW) 14.0 11.5-14.5 [facility]WsjfuxwFZFWBPUJZP3232-83-20 01:10:00 Test Item Value Reference Range Interpretation Comments Platelet (test code = Platelet) 171 133-450 [facility]EehjqlxUZTSHYDUHL5606-88-71 01:10:00 Test Item Value Reference Range Interpretation Comments MPV (test code = MPV) 8.8 7.4-10.4 [place] 330191-09-30 01:10:00 Test Item Value Reference Range Interpretation Comments Segs (test code = Segs) 42.2 45.0-75.0 [facility]otdssvMDOAVLFQGI9063-58-29 01:10:00 Test Item Value Reference Range Interpretation Comments Lymphocytes (test code = Lymphocytes) 37.9 20.0-40.0 [place] 330191-09-30 01:10:00 Test Item Value Reference Range Interpretation Comments Monocytes (test code = Monocytes) 7.0 2.0-12.0 [place] 330191-09-30 01:10:00 Test Item Value Reference Range Interpretation Comments Eosinophils (test code = 11.6 See_Comment [A utomated message] The Eosinophils) system which ge nerated this result tra nsmitted reference range : <=4.0. The reference r caleb was not used to int erpret this result as normal/abnormal . [facility] CenterRyozottRPDWZPDZDO9299-13-05 01:10:00 Test Item Value Reference Range Interpretation Comments Basophils (test code = 1.3 See_Comment [Aut omated message] The Basophils) system which ge nerated this result tra nsmitted reference range : <=1.0. The reference r caleb was not used to int erpret this result as normal/abnormal . [facility] CenterGmfpcpkHURVMIHJRW9798-00-63 01:10:00 Test Item Value Reference Range Interpretation Comments Neutrophils # (test code = Neutrophils 2.5 1.5-8.1 #) [facility] CenterUysdfkvAWASMCZCUX8217-78-07 01:10:00 Test Item Value Reference Range Interpretation Comments Lymphocytes # (test code = Lymphocytes 2.2 1.0-5.5 #) [place] 330191-09-30 01:10:00 Test Item Value Reference Range Interpretation Comments Monocytes # (test code 0.4 See_Comment [Aut omated message] The = Monocytes #) system which generated this result tra nsmitted reference range : <=0.8. The reference r caleb was not used to int erpret this result as normal/abnormal . [place] 330191-09-30 01:10:00 Test Item Value Reference Range Interpretation Comments Eosinophils # (test code 0.7 See_Comment [A utomated message] The = Eosinophils #) system whic h generated this result tra nsmitted reference range : <=0.5. The reference r caleb was not used to int erpret this result as normal/abnormal . [facility] CenterElycnuuZABGAWEJRO0295-67-33 01:10:00 Test Item Value Reference Range Interpretation Comments Basophils # (test code 0.1 See_Comment [Aut omated message] The = Basophils #) system which generated this result tra nsmitted reference range : <=0.2. The reference r caleb was not used to int erpret this result as normal/abnormal . [facility]2018-11-27 18:20:00 Test Item Value Reference Range Interpretation Comments eGFR (test code = eGFR) 90 [facility]2018-11-27 18:20:00 Test Item Value Reference Range Interpretation Comments AGAP (test code = AGAP) 4.2 10.0-20.0 [facility]2018-11-27 18:20:00 Test Item Value Reference Range Interpretation Comments Calcium Lvl (test code = Calcium Lvl) 8.6 8.5-10.5 [facility]2018-11-27 18:20:00 Test Item Value Reference Range Interpretation Comments CO2 (test code = CO2) 30 24-32 [facility]2018-11-27 18:20:00 Test Item Value Reference Range Interpretation Comments Chloride Lvl (test code = Chloride Lvl) 109 95-109 [facility]2018-11-27 18:20:00 Test Item Value Reference Range Interpretation Comments Potassium Lvl (test code = Potassium 4.2 3.5-5.1 Lvl) [facility]2018-11-27 18:20:00 Test Item Value Reference Range Interpretation Comments Sodium Lvl (test code = Sodium Lvl) 139 135-145 [facility]2018-11-27 18:20:00 Test Item Value Reference Range Interpretation Comments Glucose Lvl (test code = Glucose Lvl) 111 70-99 [facility]2018-11-27 18:20:00 Test Item Value Reference Range Interpretation Comments BUN (test code = BUN) 18 7-22 [facility]2018-11-27 18:20:00 Test Item Value Reference Range Interpretation Comments Creatinine Lvl (test code = Creatinine 1.18 0.50-1.40 Lvl) [facility]2018-11-27 18:20:00 Test Item Value Reference Range Interpretation Comments eGFR (test code = eGFR) 90 [facility]2018-11-27 18:20:00 Test Item Value Reference Range Interpretation Comments AGAP (test code = AGAP) 4.2 10.0-20.0 [facility]2018-11-27 18:20:00 Test Item Value Reference Range Interpretation Comments Calcium Lvl (test code = Calcium Lvl) 8.6 8.5-10.5 [facility]2018-11-27 18:20:00 Test Item Value Reference Range Interpretation Comments CO2 (test code = CO2) 30 24-32 [facility]2018-11-27 18:20:00 Test Item Value Reference Range Interpretation Comments Chloride Lvl (test code = Chloride Lvl) 109 95-109 [facility]2018-11-27 18:20:00 Test Item Value Reference Range Interpretation Comments Potassium Lvl (test code = Potassium 4.2 3.5-5.1 Lvl) [facility]2018-11-27 18:20:00 Test Item Value Reference Range Interpretation Comments Sodium Lvl (test code = Sodium Lvl) 139 135-145 [facility]2018-11-27 18:20:00 Test Item Value Reference Range Interpretation Comments Glucose Lvl (test code = Glucose Lvl) 111 70-99 [facility]2018-11-27 18:20:00 Test Item Value Reference Range Interpretation Comments BUN (test code = BUN) 18 7-22 [facility]2018-11-27 18:20:00 Test Item Value Reference Range Interpretation Comments Creatinine Lvl (test code = Creatinine 1.18 0.50-1.40 Lvl) [facility][U] XRAY ELBOW 2 VWS RIGHT [id number] 15:57:00Images acquired, not reported on this accession number.[facility][U] XRAY WRIST MIN 3 VWS RIGHT [id number] 15:57:00Images acquired, not reported on this accession number.[facility] Notes Date/Time Note Provider Source 2023-03-26 Formatting of this note might be differe nt from the original. Julissa Chow RN [facility] 20:00:00-00:00 Pt given printed and verbal discharge instructions regarding chronic pain and facial pain Prescriptions provided Discussed Tylenol # 3 side a ffects and to avoid driving/operating machinery/or engaging in activities requiring alertness while taking. Pt verbalized understanding of instructions, pt awake alert oriented, resp reg unlabored, skin w/d, color appropriate for race, moves all ext well,pt encouraged to follow up with pcp Advised to seek medical attention for new/prolon ged/worsening of symptoms No adverse reaction to meds given in ER noted up on discharge PIV d'cd, dressing to site, catheter in tact. Awake, alert oriented, resp reg unlabored, skin w/d, pt leaving amb with steady gait, in no apparent distress 2023-03-26 Formatting of this note might be differe nt from the original. 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 Tube was removed on 02/14/2023. Patient followed up with surgeon last week and was referred to pain management but can't be seen until next month. Patient t Sylvia CLEMENTE old to go to ED if pain is s evere and needs help with his pain. T3 has helped and oxycodone. 2022-09-20 EXAM: CT TEMPORAL BONE WITHOUT CONTRAST [...] bone. 2022-05-19 EXAM: XR CHEST 1 VIEW [facility] 00:44:00-00:00 DATE: 05/19/2022 0:00 Center INDICATION: - inc O2 requriements COMPARISON: Chest x-ray dated 05/18/2022 TECHNIQUE: AP chest, portable radiograph IMPRESSION: 1. Cardiomediastinal silhouette is normal in siz e and contour. 2. Lung volumes are low comp ared to prior study. No parenchymal consolidation. No pleural effusion. No perceptible pneumothorax. 3. No acute osseous abnormality. 4. Right side PRINCIPAL TECHNICAL SPECIALIST shunt tube superimposing over the right side of the neck and chest. 2022-05-18 EXAM: CTA CHEST WITH CONTRAST [facility] 21:20:00-00:00 DATE: 05/18/2022 20:21 Center INDICATION: diaphoresis, tahcycardia, COMPARISON: None TECHNIQUE: Volumetric CT of the chest is acquired during pulmonary arterial phase following intravenous administration of contrast. Axial, sagittal, coronal, and oblique MIP reconstructions are created at the acquisition workstation. FINDINGS: Certified Pedorthotist: Noncontributory. Lines and tubes: PRINCIPAL TECHNICAL SPECIALIST shunt co urses along the anterior right [...] EXAM: CT ABDOMEN AND PELVIS WITH CONTRAST [facility] 21:20:00-00:00 DATE: 05/18/2022 20:21 Center [...] mSv COMPLICATIONS: None FINDINGS: Lines and tubes: PRINCIPAL TECHNICAL SPECIALIST shunt ca theter extends to the right [...] No CSF-navneet at the tip of the PRINCIPAL TECHNICAL SPECIALIST shunt catheter. Lymph nodes: Reactive peripo rtal [...] 3. No intraperitoneal collections. No CSFoma at PRINCIPAL TECHNICAL SPECIALIST shunt tip. 4. Too small to characterize hepatic hypodensity . 5. 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 6. Please see concurrent [facility] CT report for more details of thoracic findings. 2022-05-18 EXAM: CT HEAD WITHOUT CONTRAST [facility] 21:20:00-00:00 DATE: 05/18/2022 20:21 Center INDICATION: 41 [...] ity. 2022-05-18 EXAM: XR CHEST 1 VIEW [facility] 15:45:01-00:00 DATE: 05/18/2022 15:19 Center INDICATION: [...] EPIDURAL BLOOD PATCH WITH FLUO ROSCOPIC GUIDANCE [facility] 12:03:37-00:00 DATE: 05/18/2022 14:36 Center [...] 20 mL - Patient position: Prone Nicholas Riascos-Nolasco, MD was present for the pr ocedure. Fluoroscopy time: 4 sec Skin dose: 86.6 mGy IMPRESSION: Successful fluoroscopically guided epidural bloo d patch. 2022-05-17 EXAM: THERAPEUTIC EPIDURAL BLOOD PATCH WITH FLUO ROSCOPIC GUIDANCE [facility] 09:00:00-00:00 DATE: 05/17/2022 16:48 Center [...] Dr. Jamal Stephenson with neurosurgery nurse practitioner automotive consultant pager, and with neurosurgery resident Dr. Morales, [...] complaint. 2022-05-12 EXAM: MRI BRAIN WITHOUT CONTRAST [facility] 05:56:00-00:00 DATE: 05/12/2022 Center INDICATION: - headache. Outs debbie brain magnetic resonance imaging submitted for 2nd opinion. COMPARISON: Head CTs dated from 05/10/2021 to TECHNIQUE: Brain magnetic re sonance imaging performed at [facility] on 05/11/2022. IV contrast: None. FINDINGS: Artifact along the right fro ntoparietal region is observed secondary to extracranial PRINCIPAL TECHNICAL SPECIALIST shunt system. Redemonstrated right frontal approach ventriculostomy [...] = 0 (mGy): DLP = 1199.84 (mGy-cm) [facility] 14:16:11-00:00 PROCEDURE INFORMATION: Exam: CT Abdomen [...] Kelvin Pate MD On 10/26/2021 18:10:05; KENZIE [id number] 2021-10-18 EXAM: XR ABDOMEN 4 VIEWS [facility] 11:56:35-00:00 DATE: 10/18/2021 11:55 [employer] INDICATION: - R10.30 Lower abdominal pain, unspe [...] in appearance. A portion of a right-sided PRINCIPAL TECHNICAL SPECIALIST shunt catheter is visualized Bowel: Nonobstructive bowel gas pattern. No pneu matosis is seen. Free air: None Solid organs: No abnormal ma ss or organomegaly seen. No abnormal intra- abdominal calcifications are seen. Bones: No acute abnormalities. IMPRESSION: 1. Right-sided PRINCIPAL TECHNICAL SPECIALIST shunt cath eter in place looped upon itself in the right upper quadrant and terminating in the left upper quadrant. 2. Bowel gas pattern is nonobstructive. No free air is seen. 2021-10-08 EXAM: CT ABDOMEN AND PELVIS WITH CONTRAST [facility] 20:09:19-00:00 DATE: 10/08/2021 20:06 [employer] Center INDICATION: - outside films/PRINCIPAL TECHNICAL SPECIALIST shunt displacemen t ADDITIONAL INFORMATION: None. COMPARISON: None. TECHNIQUE: Volumetric CT of the abdomen and pelvis acquired following the intravenous administration of contrast. Axial, coronal and sagittal images are provided. IV contrast: Refer to MAR/cardiac cath lab radiology technologist docume ntation Enteric contrast: None. DLP (mGy-cm): Refer to MAR/cardiac cath lab radiology technologist docum entation FINDINGS: Certified Pedorthotist: Noncontributory. Lines, tubes and hardware: R ight sided PRINCIPAL TECHNICAL SPECIALIST shunt with the distal tip terminating in [...] in the region of the distal, malpositioned PRINCIPAL TECHNICAL SPECIALIST shunt in the right lower quadrant abdominal soft tissues with associated fluid miguel ection measuring approximately 8.2 x 5.4 x 3.9 c m (transverse, AP, CC). IMPRESSION: Malpositioned PRINCIPAL TECHNICAL SPECIALIST catheter wi th the distal tip in the right upper quadrant ventral abdominal soft tissues with associated fluid collection. 2021-10-08 Critical finding of new left frontal lobe hypoattenuation along the right frontal shunt catheter possibly open claims representative of an infectious process was communicated to and acknowledged by Trenton Mcfadden at 10/08/2021 21:26 [employer] by Armond Sultana MD. [facility] 20:09:12-00:00 EXAM: CT BRAIN WITHOUT CONTRAST Center DATE: 10/08/2021 20:07 [employer] INDICATION: - outside films/PRINCIPAL TECHNICAL SPECIALIST shunt displacemen t COMPARISON: CT brain 10/04/2021. [...] evaluation. 2021-10-04 EXAM: CT BRAIN WITHOUT CONTRAST [facility] 08:34:12-00:00 DATE: 10/04/2021 Center INDICATION: [...] transfrontal shunt catheter. 2021-10-03 Exam: Shunt series. [facility] 21:24:18-00:00 DATE: 10/03/2021. Center INDICATION: Evaluate [...] kinking. 2021-10-03 EXAM: CT BRAIN WITHOUT CONTRAST [facility] 08:36:56-00:00 DATE: 10/03/2021 0840 hours [...] 2021-05-11 EXAM: CT TEMPORAL BONE WITH CONTRAST [facility] 02:14:01-00:00 DATE: 05/11/2021 Center INDICATION: [...] thrombosis. 2021-05-10 EXAM: CT BRAIN WITHOUT CONTRAST [facility] 22:34:45-00:00 DATE: 05/10/2021 22:24 CDT [...]
[2023-04-11] MEDS ORDERED: NA CHLORIDE 0.9% 500 ML ONE (09:54)
[2023-04-11] MEDS ORDERED: PROMETHAZINE INJ 25 MG/ML AMP ONE (09:54)
[2023-04-11 10:04] LABS: Absolute Lymphocytes (CBC) 2.2 K/uL (0.7-4.9); Lymphocytes % 32.4 % (15.3-44.8); MCV 85.7 fL (80-100); MPV 8.9 fL (7.6-11.3); Platelets 198 thou/uL (152-406); RBC Red Blood Cell Count 5.13 M/uL (4.33-5.43)
--- NOTE | 2023-04-11 10:07 | RAD REPORT ---
EXAM DESCRIPTION: CT - Head Brain Wo Cont - 04/11/2023 9:43 am CLINICAL HISTORY: Headache COMPARISON: February 2023 TECHNIQUE: Computed axial tomography of the head was obtained. IV contrast was not requested. All CT scans are performed using dose optimization technique as appropriate and may include automated exposure control or mA/KV adjustment according to patient size. FINDINGS: An intracranial bleed is not seen The ventricles are normal in caliber No extra-axial fluid collection is noted. A right ventricular shunt enters the frontal horn right lateral ventricle. 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
[2023-04-11 10:18] LABS: SARS-CoV-2 Antigen Rapid Res Negative (Negative)
[2023-04-11 10:21] LABS: Albumin 3.9 g/dL (3.4-5.0); Bilirubin Total 0.4 mg/dL (0.2-1.0); Potassium 3.9 mEq/L (3.5-5.1); Protein, Total 7.7 g/dL (6.4-8.2)
[2023-04-11] MEDS ORDERED: ONDANSETRON 4 MG/2 ML VIAL ONE (11:41)
[2023-04-11] MEDS ORDERED: HYDROCODONE/APAP 5/325 MG TAB ONE (11:41)
--- NOTE | 2023-04-11 13:32 | EDPHYS ---
Physician Documentation [facility] Name: Terry Akins Sr Age: 42 yrs Sex: Male : 1980 Arrival Date: 04/11/2023 Time: 09:21 Bed 7 Private MD: ED Physician Kwame Ortiz HPI: 04/11 10:14 This 42 yrs old Black Male presents to ER via Ambulatory with complaints of Pain All rn Over, nausea and vomiting. 10:14 The patient presents to the emergency department with nausea, vomiting. Onset: The rn symptoms/episode began/occurred 3 day(s) ago. Possible causes: unknown. The symptoms are aggravated by nothing. The symptoms are alleviated by nothing. Severity of symptoms: At their worst the symptoms were moderate in the emergency department the symptoms are unchanged. The patient has experienced similar episodes in the past, chronically. The patient has not recently seen a physician. Patient reports nausea and vomiting for 3 days, no fever, no head injury. Reports migraines in the past. Mild headache today. Reports has episodes like this frequently and has appointment with GI today but could not handle the nausea. Nothing out of the ordinary.. Historical: - Allergies: 09:23 No Known Allergies; ll1 - PMHx: 09:23 Hypertensive disorder; Migraine; ll1 - PSHx: 09:23 Appendectomy; carpal tunnel right; hernia; left hand tendonitis; Mastoid surgery; Nerve ll1 transplantion; shunt; - Immunization history:: Adult Immunizations up to date. - Social history:: Smoking status: Patient denies any tobacco usage or history of. - Family history:: not pertinent. - Hospitalizations: : No recent hospitalization is reported. ROS: 10:14 Constitutional: Negative for fever, chills, and weight loss, Eyes: Negative for injury, rn pain, redness, and discharge, Neck: Negative for injury, pain, and swelling, Cardiovascular: Negative for chest pain, palpitations, and edema, Respiratory: Negative for shortness of breath, cough, wheezing, and pleuritic chest pain, Abdomen/GI: Positive for abdominal cramps/nausea/vomiting MS/Extremity: Negative for injury and deformity, Skin: Negative for injury, rash, and discoloration, Neuro: Positive for mild headache, negative for seizure or focal neurological problem Exam: 10:14 Constitutional: This is a well developed, well nourished patient who is awake, alert, rn holding emesis bag Head/Face: Normocephalic, atraumatic. Cardiovascular: Regular rate and rhythm. No pulse deficits. Respiratory: No increased work of breathing, no retractions or nasal flaring. Abdomen/GI: Soft, no focal abdominal tenderness MS/ Extremity: Pulses equal, no cyanosis. Neurovascular intact. Full, normal range of motion. Equal circumference. Neuro: Awake and alert, GCS 15, oriented to person, place, time, and situation. Cranial nerves II-XII grossly intact. Motor strength 5/5 in all extremities. Sensory grossly intact. Cerebellar exam normal. Normal gait. Vital Signs: 09:29 BP 128 / 109; Pulse 88; Resp 18; Temp 98.5; Pulse Ox 96% on R/A; Weight 152.86 kg; ll1 Height 6 ft. 3 in. ; Pain 10/10; 09:35 BP 150 / 76; Pulse 80; Resp 18; Pulse Ox 99% ; ko1 11:21 BP 133 / 76; rn 13:17 BP 123 / 61; Pulse 92; Resp 18; Pulse Ox 98% on R/A; ld1 09:29 Body Mass Index 42.12 (152.86 kg, 190.5 cm) ll1 09:29 Pain Scale: Adult ll1 MDM: 09:26 Patient medically screened. rn 11:21 ED course: Patient's symptoms have improved, negative work-up for acute findings. rn Improved vital signs. Upon reevaluation patient reports persistent nausea and request pain medication. After the Phenergan patient became extremely sleepy and oxygen dropped, I discussion with patient and told him that he was at his limits for any medication that would otherwise sedate him as he transiently became hypoxic.. 12:56 Differential diagnosis: gastritis, cholecystitis, pancreatitis, viral gastroenteritis, rn gastroenteritis. 13:31 Data reviewed: vital signs, nurses notes, lab test result(s), radiologic studies, CT rn scan, ultrasound, and as a result, I will discharge patient. Counseling: I had a detailed discussion with the patient and/or guardian regarding the historical points, exam findings, and any diagnostic results supporting the discharge/admit diagnosis, lab results, radiology results, the need for outpatient follow up, to return to the emergency department if symptoms worsen or persist or if there are any questions or concerns that arise at home. Response to treatment: the patient's symptoms have markedly improved after treatment, sleeping comfortably. Special discussion: I discussed with the patient/guardian in detail that at this point there is no indication for admission to the hospital. It is understood, however, that if the symptoms persist or worsen the patient needs to return immediately for re-evaluation. 04/11 09:34 Order name: SARS RAPID; Complete Time: 10:28 rn 04/11 09:34 Order name: Flu; Complete Time: 10: rn 04/11 09:34 Order name: CBC with Diff; Complete Time: 10:10 rn 04/11 09:34 Order name: CMP; Complete Time: 10: rn 04/11 09:34 Order name: Lipase; Complete Time: 10: rn 04/11 09:34 Order name: CT Head Brain wo Cont; Complete Time: 10: rn 04/11 12:38 Order name: US Abdomen Limited rn 04/11 09:34 Order name: IV Start; Complete Time: 09:55 rn 04/11 09:34 Order name: Labs collected and sent; Complete Time: 09:55 rn Administered Medications: 09:55 Drug: NS 0.9% IV 500 ml Route: IV; Rate: bolus; Site: right antecubital; ko1 09:55 Drug: Promethazine IVP 12.5 mg Route: IVP; Site: right antecubital; ko1 11:31 Drug: Ondansetron IVP 4 mg Route: IVP; Site: right forearm; ko1 11:31 Drug: [place] PO 5 mg-325 mg 1 tabs Route: PO; ko1 Disposition Summary: 04/11/23 13:31 Discharge Ordered Location: Home rn Problem: new rn Symptoms: have improved rn Condition: Stable rn Diagnosis - Nausea with vomiting, unspecified rn Followup: rn - With: Private Physician - When: As needed - Reason: Recheck today's complaints, Re-evaluation by your physician Discharge Instructions: - Discharge Summary Sheet rn - Nausea and Vomiting, Adult rn Forms: - Medication Reconciliation Form rn - Thank You Letter rn - Antibiotic 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
--- NOTE | 2023-04-11 13:32 | ER ---
Nurse's Notes [facility] Name: Terry Akins Sr Age: 42 yrs Sex: Male : 1980 Arrival Date: 04/11/2023 Time: 09:21 Bed 7 Private MD: Diagnosis: Nausea with vomiting, unspecified Presentation: 04/11 09:29 Chief complaint: Patient states: Abdominal pain, ADAMSON, N/V/D, body cramps for 2 days. ll1 Coronavirus screen: Vaccine status: Patient reports receiving the 2nd dose of the covid vaccine. Client denies travel out of the [place] in the last 14 days. cough unrelated to allergies, diarrhea, fatigue, headache, muscle pain, nausea, vomiting. Client presents with at least one sign or symptom that may indicate coronavirus-19. Standard/surgical mask placed on the client. Ebola Screen: Patient denies travel to an Ebola-affected area in the 21 days before illness onset. Initial Sepsis Screen: Does the patient meet any 2 criteria? No. Patient's initial sepsis screen is negative. Does the patient have a suspected source of infection? Yes: Acute abdominal pain. Risk Assessment: Do you want to hurt yourself or someone else? Patient reports no desire to harm self or others. Onset of symptoms was April 09, 2023. 09:29 Method Of Arrival: Ambulatory ll1 09:29 Acuity: SARITHA 3 ll1 Historical: - Allergies: 09:23 No Known Allergies; ll1 - PMHx: 09:23 Hypertensive disorder; Migraine; ll1 - PSHx: 09:23 Appendectomy; carpal tunnel right; hernia; left hand tendonitis; Mastoid surgery; Nerve ll1 transplantion; shunt; - Immunization history:: Adult Immunizations up to date. - Social history:: Smoking status: Patient denies any tobacco usage or history of. - Family history:: not pertinent. - Hospitalizations: : No recent hospitalization is reported. Screenin:35 [facility] ED Fall Risk Assessment (Adult) History of falling in the last 3 months, ko1 including since admission No falls in past 3 months (0 pts) Confusion or Disorientation No (0 pts) Intoxicated or Sedated No (0 pts) Impaired Gait No (0 pts) Mobility Assist Device Used No (0 pt) Altered Elimination No (0 pt) Score/Fall Risk Level 0 - 2 = Low Risk Oriented to surroundings, Maintained a safe environment, Educated pt \T\ family on fall prevention, incl call for assistance when getting out of bed, Assessed \T\ reinforced patient's understanding of fall precautions, Provided non-skid footwear, Hourly rounding (assess needs \T\ fall precautionary measures) done, Used ambulatory aids as needed (educated on \T\ assisted with), Used gait belt as appropriate. Abuse screen: Denies threats or abuse. Denies injuries from another. Nutritional screening: No deficits noted. Tuberculosis screening: No symptoms or risk factors identified. Assessment: 09:35 General: Appears distressed, uncomfortable, Behavior is cooperative, appropriate for ko1 age. Pain: Complains of pain in all over. Neuro: Reports headache. Cardiovascular: No deficits noted. Respiratory: No deficits noted. GI: Reports lower abdominal pain. : No deficits noted. EENT: No deficits noted. Derm: No deficits noted. Musculoskeletal: No deficits noted. Vital Signs: 09:29 BP 128 / 109; Pulse 88; Resp 18; Temp 98.5; Pulse Ox 96% on R/A; Weight 152.86 kg; ll1 Height 6 ft. 3 in. ; Pain 10/10; 09:35 BP 150 / 76; Pulse 80; Resp 18; Pulse Ox 99% ; ko1 11:21 BP 133 / 76; rn 13:17 BP 123 / 61; Pulse 92; Resp 18; Pulse Ox 98% on R/A; ld1 09:29 Body Mass Index 42.12 (152.86 kg, 190.5 cm) ll1 09:29 Pain Scale: Adult ll1 ED Course: 09:23 Patient arrived in ED. rg4 09:23 Arm band placed on Patient placed in an exam room, on a stretcher. ll1 09:26 wKame Ortiz MD is Attending Physician. rn 09:30 Triage completed. ll1 09:35 Patient has correct armband on for positive identification. Bed in low position. Call ko1 light in reach. Provided Education on: na. Pulse ox on. NIBP on. Door closed. Noise minimized. Lights dimmed. 09:35 No provider procedures requiring assistance completed. ko1 09:41 Chelsey Orellana, RN is Primary Nurse. ld1 09:44 CT Head Brain wo Cont In Process Unspecified. EDMS 09:55 CBC with Diff Sent. ko1 09:55 CMP Sent. ko1 09:55 Lipase Sent. ko1 09:55 Flu Sent. ko1 09:55 SARS RAPID Sent. ko1 09:55 Inserted saline lock: 20 gauge in right forearm, using aseptic technique. Blood ko1 collected. 12:59 Abdomen Limited In Process Unspecified. EDMS Administered Medications: 09:55 Drug: NS 0.9% IV 500 ml Route: IV; Rate: bolus; Site: right antecubital; ko1 09:55 Drug: Promethazine IVP 12.5 mg Route: IVP; Site: right antecubital; ko1 11:31 Drug: Ondansetron IVP 4 mg Route: IVP; Site: right forearm; ko1 11:31 Drug: [place] PO 5 mg-325 mg 1 tabs Route: PO; ko1 Medication: 09:35 VIS not applicable for this client. ko1 Outcome: 13:31 Discharge ordered by . rn 13:50 Discharged to home ambulatory. ld1 13:50 Condition: stable 13:50 Discharge instructions given to patient, Instructed on discharge instructions, follow up and referral plans. medication usage, Demonstrated understanding of instructions, follow-up care, medications, Prescriptions given X 1. 13:50 Patient left the ED. ld1 Signatures: Dispatcher [employer] EDMS Kwame Ortiz MD MD rn Garcia, Rubi rg4 Anand Badillo RN RN ll1 Chelsey Orellana RN RN ld1 Mis Chester RN RN ko1
--- NOTE | 2023-04-11 14:13 | RAD REPORT ---
EXAM DESCRIPTION: US - Abdomen Exam Limited - 04/11/2023 1:01 pm CLINICAL HISTORY: elevated alk phos COMPARISON: Shuntogram dated 09/22/2022; Abdomen Pelvis W Contrast dated 09/18/2022 TECHNIQUE: Sonographic grayscale and color flow images of the right upper abdominal quadrant were obtained. FINDINGS: The gallbladder demonstrates no gallstones. No pericholecystic fluid or gallbladder wall t hickening. The common bile duct is normal measuring 4 mm. The liver demonstrates no findings of intrahepatic biliary dilatation. IMPRESSION: Unremarkable right upper abdomen sonographic examination.
[2023-04-11 14:33] VITALS: TEMP 98.5
[2023-04-11 14:49] VITALS: BP 123/61; O2SAT 98
== END 2023-04-11 13:50 | disposition home or self-care (01) ==
LOC: ER 09:21
DX: R11.2 Nausea with vomiting, unspecified (principal); R51.9 Headache, unspecified; Z20.822 Contact with and (suspected) exposure to COVID-19; I10 Essential (primary) hypertension
CPT/HCPCS: 85025; 36415; 83690; 80053; 87804 ×2; 70450; 76705; 99284; 87811; J2550; J2405; J7040

== ENCOUNTER 2023-05-31 22:22 | Emergency (ER) | payer OTHER, SELFPAY ==
--- OUTSIDE RECORDS SUMMARY | 2023-05-31 22:36 | XMS REPORT | Continuity of Care Document ---
:1980 Author Organization [facility] t Address [address] [facility] [address] [place] [address] Care Team Providers Name Role Phone Geovanna Foley DO Primary Care Physician John Vazquez Attending Clinician Unavailable GERONIMO MICHELLE Attending Clinician Unavailable NOAH OSORIO Attending Clinician Unavailable JUNIOR MELO Attending Clinician Unavailable MANASA CULLEN Attending Clinician Unavailable DAVID RAGLAND Attending Clinician Unavailable JOHAN HONEYCUTT Attending Clinician Unavailable MAGNOLIA MONTES DE OCA Attending Clinician Unavailable Magnolia Nguyen Attending Clinician MANASA CULLEN Attending Clinician Unavailable CRIS JAIMES Attending Clinician Unavailable Kelly LOAJ, Karen Trent Attending Clinician Darshan LOJA, Julian Attending Clinician César LOJA, Aidan Attending Clinician Cecil LOJA, Jimmy Amato Attending Clinician [phone] ANU ORTIZ Attending Clinician Unavailable NOAH OSORIO Attending Clinician Unavailable SONIA ROBERTS Attending Clinician Unavailable Marcella CLEMENTE, Rae Attending Clinician Unavailable Layne Sánchez MA Attending Clinician Unavailable Geronimo Michelle MD Attending Clinician Dorothea Delgadillo MA Attending Clinician Unavailable Amelia Cameron MA Attending Clinician Unavailable Brii Howard MA Attending Clinician Unavailable Doctor Unassigned, Stoy Attending Clinician Unavailable , [employer] Attending Clinician Unavailable [...] Clinician Unavailable MANASA CULLEN Admitting Clinician Unavailable MANASA CULLEN Admitting Clinician Unavailable JULIAN SEXTON Admitting Clinician Unavailable NOAH OSORIO Admitting Clinician Unavailable Blaire PADRON Admitting Clinician Unavailable Payers Payer Name Policy Type Policy Number Effective Date Expiration Date S ource [facility] MEDICAID [id number] 2019 STAR 00:00:00 [facility] [id number] 2019 HEALTH CHOICE 00:00:00 [place] ST[place] [facility] [id number] 2018 [facility] 00:00:00 [facility] [id number] 2018 [facility] HEALTH CHOICE 00:00:00 [facility] [id number] 2018 [facility] HEALTH CHOICE 00:00:00 [facility] [id number] 2018 [facility] HEALTH CHOICE 00:00:00 [facility] [id number] 2018 [facility] HEALTH CHOICE 00:00:00 [facility] [id number] 2018 [facility] CHOICE 00:00:00 [facility] [id number] 2018 [facility] 00:00:00 [facility] Problems Condition Condition Condition Status Onset Resolution Last Treating Co mments Source Name Details Category Date Date Treatment Clinician Date CRANIAL CRANIAL Diagnosis Active 2023-02-04 Memoria CEREBROSPI CEREBROSPI 02-01 13:10:00 l NAL FLUID NAL FLUID 00:00: Herm faina LEAK, LEAK, 00 SPONTA SPONTA Active 02/01/2023 [facility] Intractabl Intractabl Disease Active M ethodi e vomiting e vomiting 01-06 st with with 00:00: Hospita nausea nausea 00 l Hematemesi Hematemesi Disease Active M ethodi s with s with 01-06 st nausea nausea 00:00: Hospita 00 l Hypertensi Hypertensi Disease Active M ethodi ve urgency ve urgency 01-06 st 00:00: Hospita 00 l Acute Acute Disease Active Methodi intractabl intractabl 01-06 st e headache e headache 00:00: Ho spita 00 l BMI BMI Disease Active 2021-08 UT 40.0-44.9, 40.0-44.9, 0-07 He alth adult adult 00:00: 00 SPINAL SPINAL Diagnosis Active 2021-082022-05-18 Me moria HEADACHE HEADACHE 0-05 08:44:00 l Active 12:00: [place] 05/16/2022 00 [facility] SENY BY SENY BY Diagnosis Active 2021-082022-05-16 Memoria PHYISICIAN PHYISICIAN 0-05 19:45:00 l Active 12:00: [place] 05/16/2022 00 [facility] L L Diagnosis Active 2021-082022-05-12 Mem oria MASTOIDITI MASTOIDITI 0- 05:56:00 l S S Active 00:00: [place] 05/12/2022 00 [facility] UNSPECIFIE Diagnosis Active 2021-10-26 Memoria D UNSPECIFIE 10-24 18:20:00 l ABDOMINAL D 00:00: [place] PAIN ABDOMINAL 00 PAIN Active 10/24/2021 [facility] DISPLACED DISPLACED Diagnosis Active 2021-10-08 Memoria [employer] CUSTODIAN SHUNT R[employer]ING [employer] CUSTODIAN SHUNT 10-08 19:39:00 l Active 00:00: [place] 10/08/2021 00 [facility] RIDING SILKS CUSTODIAN SHUNT RIDING SILKS CUSTODIAN SHUNT Diagnosis Active 2021-10-26 Memoria MALF MALF 10-08 18:20:00 l Active 00:00: [place] 10/08/2021 00 [facility] G96.00 G96.00 Diagnosis Active 2021-10-26 Me moria Active 09-28 18:20:00 l 09/28/2021 00:00: Sadi gresham [address] MD LOJA Diagnosis Active 2021-05-10 Mem oria REFERRAL/ REFERRAL/ 05-10 20:33:00 l FLUIDS FLUIDS 00:00: [place] LEAKING LEAKING 00 FROM EAR FROM EAR Active 05/10/2021 [facility] CSF CSF Disease Active [facility] otorrhea otorrhea 05-09 Health 00:00: 00 Syncope Syncope Disease Active 2017-08 Methodi 0-14 [facility] 00:00: Hospita 00 l [id number] Non-season Problem Com mon al Spirit allergic - [facility] rhinitis, St unspecifie [facility] [id number] Mild Problem Common intermitte Spirit nt asthma - [facility]I with St allergic [facility] rhinitis, Medical unspecie Center d whether complicate d [id number] Depression Problem Co mmon with Spirit anxiety - [facility] [id number] Migraine Problem Comm on without Spirit aura and - [facility] without [facility] migrainosu Medica l s, not Center intractabl e [id number] Attention Problem Comm on deficit Spirit hyperactiv - [facility] ity [facility] (ADHD), Medical combined Center type [id number] Primary Problem Comm on osteoarthr Spirit itis of - [facility] right knee [facility] [id number] Pain in Problem Common right knee Spirit - [facility] [id number] Left Problem Common maxillary Spirit sinusitis - [facility] [id number] Hypertensi Problem Com mon on, Spirit unspecifie - CHI d type [facility] [id number] GERD Problem Common without Spirit esophagiti - CHI s [facility] [id number] Tobacco Problem Commo n use Spirit disorder - [facility] [id number] Other Problem Common chronic Spirit pain - [facility] [id number] Mixed Problem Common hyperlipid Spirit emia - [facility] [id number] Decreased Problem Com mon hearing of Spirit left ear - [facility] [id number] Loss of Problem Common taste [facility] - [facility] Lesion of Lesion of Problem 2019-01-26 Memoria ulnar ulnar 15:19:24 l nerve, nerve, [place] right right upper limb upper limb 9 [facility] [place] Unspecifie Unspecifi Problem 2019-01-26 Memoria d ed 15:19:24 l osteoarthr osteoarthr He jose alfredo itis, itis, unspecifie unspecifie d site d site 01/26/2019 [place] Sleep Sleep Problem 2019-01-26 Foster smith apnea, apnea, 15:19:24 l unspecifie unspecifie Harpreet veliz d d 01/26/2019 [facility] [place] Unspecifie Unspecifi Problem 2019-01-26 Memoria d asthma, ed asthma, 15:19:24 l uncomplica uncomplica Harpreet holley 01/26/2019 [place] Anxiety Anxiety Problem 2019-01-26 Me moria disorder, disorder, 15:19:24 l unspecifie unspecifie Harpreet gage d 01/26/2019 [facility] [place] Gastro-eso Problem 2019-01-26 M emoria phageal Gastro-eso 15:19:24 l reflux phageal [place] disease reflux without disease esophagiti without s esophagiti s 01/26/2019 [place] Essential Essential Problem 2019-01-26 Memoria (primary) (primary) 15:19:24 l hypertensi hypertensi He rmann on on 01/26/2019 [place] Personal Personal Problem 2019-01-26 Memoria history of history of 15:19:24 l nicotine nicotine Sadi n dependence dependence 9 [place] Allergy Allergy Problem 2019-01-26 Me moria status to status to 15:19:24 l analgesic analgesic Herm faina agent agent status status 01/26/2019 [place] 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 Long Problem 2019-01-26 Me moria (current) term 15:19:24 l use of (current) [place] non-steroi use of siddharth non-steroi anti-infla siddharth mmatories anti-infla (NSAID) mmatories (NSAID) 01/26/2019 [place] Dependence Problem 2019-01-26 M emoria on other Dependence 15:19:24 l enabling on other Sdai n machines enabling and machines devices and devices 01/26/2019 [place] Arthrodesi Arthrodes Problem 2019-01-26 Memoria s status is status 15:19:24 l 01/26/2019 Sadi n [place] Cerebrospi Cerebrosp Problem Active 2022-09-23 Memoria nal fluid inal fluid 07:26:44 l leak leak [place] (disorder) (disorder) Active Problem 09/23/2022 [facility], RHODA Cedeño, Thomas Renteria [facility] Chest pain Chest Problem Active 2022-09-23 M emoria (finding) pain 07:26:44 l (finding) [place] Active Problem 09/23/2022 [facility], RHODA Cedeño, Thomas [facility] Morbid Morbid Problem Active 2022-09-23 David katarzyna obesity obesity 07:26:44 l (disorder) (disorder) He rmann Active Problem 09/23/2022 [facility], RHODA Cedeño, Thomas Renteria [facility] Rhabdomyol Rhabdomyo Problem Active 2022-09-23 Memoria ysis lysis 07:26:44 l (disorder) (disorder) He rmann Active Problem 09/23/2022 [facility], RHODA Cedeño, RHODA Burr,M [facility] [place],[facility] Smoker Smoker Problem Active 2022-09-23 David katarzyna (finding) (finding) 07:26:44 l Active [place] Problem 09/23/2022 [facility], RHODA Cedeño, RHODA Burr,M [facility] MEC COMPL MECH Diagnosis Active 2021-10-26 Memoria OF COMPL OF 18:20:00 l VENTRICULA VENTRICULA He rmann R R INTRACRANI INTRACRANI AL S AL S Active [facility] R10.30 - R10.30 - Diagnosis Active 2021-10-26 Memoria LOWER LOWER 18:20:00 l ABDOMINAL ABDOMINAL Herm faina PAIN, PAIN, UNSPECIF UNSPECIF Active RHODA Cedeño R10.84 - R10.84 - Diagnosis Active 2022-01-10 Memoria GENERALIZE GENERALIZE 14:35:00 l D D [place] ABDOMINAL ABDOMINAL PAIN PAIN Active RHODA Burr Headache Headache Problem Active 2022-09-23 Memoria (finding) (finding) 07:26:44 l Active [place] Problem 09/23/2022 [facility] 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 (finding) (finding) Active Problem 09/23/2022 [facility] OTHER OTHER Diagnosis Active 2022-05-18 Mem oria REACTION REACTION 08:44:00 l TO SPINAL TO SPINAL Herm faina AND LUMBAR AND LUMBAR PUNC PUNC Active [facility] G96.01 - G96.01 - Diagnosis Active 2022-09-20 Memoria CRANIAL CRANIAL 13:51:00 l CEREBROSPI CEREBROSPI He rmann NAL FLUID NAL FLUID LE LE Active RHODA [place] Cubital Cubital Problem Active [facility] tunnel [...] problems problems [facility] Sprain of Sprain of Problem Resolve 2022-05-21 2022-05-21 Memoria ligament ligament d 12-22 21:55:10 21:55:10 l of finger of finger 00:00: Anya eisenberg (disorder) (disorder) 00 Resolved 12/23/2011 Problem 05/21/2022 [facility], RHODA Cedeño, RHODA Burr,M [place] History of Past Illness Condition Condition Condition Status Onset Resolution Last Treating Co mments Source Name Details Category Date Date Treatment Clinician Date Headache, Problem 2021-082022-05-14 2022-05-14 Memoria unspecifie Headache, 0-02 23:16:23 23:16:23 l d unspecifie 02:01: Sadi gage 00 05/13/2022 05/14/2022 [facility] Presence Presence Problem 2021-082022-05-14 2022-05-14 Memoria of of 0-02 23:16:23 23:16:23 l cerebrospi cerebrospi 02:01: Harpreet veliz nal fluid nal fluid 00 drainage drainage device device 05/13/2022 05/14/2022 [facility] Carpal Carpal Problem 2017-082019-01-26 2019-01-26 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:19:24 15:19:24 l syndrome, syndrome, 04:59: Anya eisenberg right right 41 upper limb upper limb 07/17/2018 9 [facility] [place] Obstructiv Obstructi Problem 2017-082019-01-11 2019-01-11 Mike bhakta sleep ve sleep 08-28 11:08:48 11:08:48 l apnea apnea 05:23: [place] (adult) (adult) 17 (pediatric (pediatric ) ) 06/28/2018 9 [facility] [place] Unspecifie Unspecifi Problem 2017-082018-12-03 2018-12-03 Mike d ed 0-11 14:53:30 14:53:30 l mononeurop mononeurop 04:28: Harpreet pink of athy of 42 right right upper limb upper limb 8 12/03/2018 [facility] [place] Pain in Pain in Problem 2017-082018-12-03 2018-12-03 Mike arm, arm, 0-05 14:53:30 14:53:30 l unspecifie unspecifie 05:00: Harpreet gage d 00 05/16/2018 12/03/2018 [facility] [place] Allergies, Adverse Reactions, Alerts Allergy Allergy Status Severity Reaction(s) Onset Inactive Treating Comm ents Source Name Type Date Date Clinician NO KNOWN Drug Active Univers ALLERGIE Class ity of S [facility] NO KNOWN Allergy Active [facility] Acetamin drug Active Headache [facility] ophen allergy Physici TABS ans No Known No Known Active Memori a Medicati Medicati l on on [place] jansen s Family History Family Member Diagnosis Comments [...] [facility] Physicians Family Member cerebrovascular accident (CVA) Other Diabetes [facility] Social History Social Habit Start Date Stop Date Quantity Comments Source History SDOH [facility] Alcohol Frequency History SDOH [facility] Alcohol Std Drinks History SDOH [facility] Alcohol Binge [facility] Gender identity [facility] Cigarettes smoked 2023-04-23 2023-04-23 [facility] current (pack per 00:00:00 00:00:00 day) - Reported Cigarette 2023-04-23 2023-04-23 [facility] pack-years 00:00:00 00:00:00 History of Social 2023-01-07 2023-01-[address] function 00:00:00 00:00:00 Hospital Tobacco use and 2023-01-06 2023-01-06 Smokeless tobacco Me thodist exposure 00:00:00 00:00:00 non-user Hospital Alcohol intake 2023-01-06 2023-01-06 Current non-drinker M ethodist 00:00:00 00:00:00 of alcohol Hospital (finding) Tobacco Comment 2022-11-14 2022-11-14 Pt quit few years [facility] 00:00:00 00:00:00 ago Medical Center Exposure to 2022-09-18 2022-09-28 Not sure [facility] SARS-CoV-2 (event) 00:00:00 14:46:00 Alcohol Comment 2021-10-18 2021-10-18 Ocassionally [facility] 00:00:00 00:00:00 History of tobacco 1994-10-02 2021-02-03 Snuff User [facility] use 00:00:00 00:00:00 Social History 2018-07-08 2018-07-08 [facility] 18:40:37 18:40:37 Sex Ass[birth year] At [birth year] [facility] 00:00:00 00:00:00 Medical Center Smoking Status Start Date Stop Date Source Tobacco smoking [facility] consumption unknown Medical Bran ch Ex-smoker 2023-04-23 00:00:00 2023-04-23 [facility] 00:00:00 Current Smoker 2022-06-22 00:00:00 [facility] Ce nter Medications Ordered Filled Start Stop Current Ordering Indication Dosage Frequency Signature Comments Components Source Medication Medication Date Date Medication? Clinician (SIG) Name Name losartan Yes 25mg QD Take 25 mg UT (Cozaar) 25 9-12 by mouth 1 He alth MG tablet 14:32: (one) time 06 each day. losartan 2023-0 Yes 25mg QD Take 25 mg UT (Cozaar) 25 9-12 by mouth 1 He alth MG tablet 14:32: (one) time 06 each day. Rimegepant 2023-0 Yes [id number] 75mg Take 75 mg UT Sulfate 9-12 by mouth Health (Nurtec) 75 00:00: continuous MG tablet 00 ly if dispersible needed (migraines ). Rimegepant 2023-0 Yes [id number] 75mg Take 75 mg UT Sulfate 75 9-12 by mouth Healt h MG tablet 00:00: if needed dispersible 00 (migraines ). Rimegepant 2023-0 Yes [id number] 75mg Take 75 mg UT Sulfate 9-12 by mouth Health (Nurtec) 75 00:00: continuous MG tablet 00 ly if dispersible needed (migraines ). Rimegepant 2023-0 Yes [id number] 75mg Take 75 mg UT Sulfate 75 9-12 by mouth Healt h MG tablet 00:00: if needed dispersible 00 (migraines ). ondansetron 2022-0 Yes 4mg Take 4 mg U T ODT 9-05 by mouth Health (Zofran-ODT 00:00: every 8 ) 4 MG 00 (eight) disintegrat hours if ing tablet needed. sucralfate 2022-0 Yes 1g Q.5D Take 1 g UT (Carafate) 8-31 by mouth Healt h 1 g tablet 00:00: in the 00 morning and 1 g before bedtime. dicyclomine 2022-0 Yes 20mg Take 20 mg UT (Bentyl) 20 8-31 by mouth Heal th MG tablet 00:00: every 8 00 (eight) hours if needed. HYDROcodone 2022-0 2022- No 1{tbl} 1 tablet, Univers -acetaminop 03-27 Oral, ity of hen (NORCO) 01:30: 00:52 [place] 10[place]325 mg 00 :00 dose, On Medica l tablet 1 Tue Branch tablet 03/26/23 at 2030, DAKSHA iopamidol 2022-0 2022- No [id number] 100mL 100 mL, Univers (ISOVUE 03-27 Intravenou [...] Indication s: acute pain ciprofloxac 2022- Yes [id number] 10[drp] Q.5D Administer UT in-dexameth 03-13 [id number] 10 drops He alth asone 00:00: 04:59 into the (Ciprodex) 00 :00 left ear otic in the suspension morning and 10 drops in the evening. Do all this for 7 days. acetaminoph 2022- Yes [id number] 1{tbl} Q6H Take 1 UT en-codeine 03-13 tablet by [facility] (Tylenol w/ 00:00: 04:59 mouth Codeine #3) 00 :00 every 6 300-30 MG (six) tablet hours if needed for severe pain for up to 5 days. amLODIPine 0 Yes 5mg QD Take 5 mg UT (Norvasc) 5 7-11 by mouth 1 He alth MG tablet 00:00: (one) time 00 each day. amLODIPine 2022- No 5mg QD Take 5 mg U T (Norvasc) 5 7-11 09-12 by mouth 1 H ealth MG tablet 00:00: 00:00 (one) time 00 :00 each day. lisinopriL 2022-0 Yes 40mg QD Take 1 Metho di (PRINIVIL) 5-30 tablet (40 st 40 mg 18:25: mg total) Hospita tablet 02 by mouth l daily. traMADoL 2022-0 Yes [id number] 50mg Q24H Take 1 Method i (ULTRAM) [...] by mouth l daily. traMADoL 2023-0 Yes [id number] 50mg Q24H Take 1 Method i (ULTRAM) [...] by mouth l daily. traMADoL 2023-0 Yes [id number] 50mg Q24H Take 1 Method i (ULTRAM) [...] by mouth l daily. traMADoL 2023-0 Yes [id number] 50mg Q24H Take 1 Method i (ULTRAM) [...] by mouth l daily. traMADoL 2023-0 Yes [id number] 50mg Q24H Take 1 Method i (ULTRAM) [...] by mouth l daily. traMADoL 2023-0 Yes [id number] 50mg Q24H Take 1 Method i (ULTRAM) [...] by mouth l daily. traMADoL 2023-0 Yes [id number] 50mg Q24H Take 1 Method i (ULTRAM) [...] by mouth l daily. traMADoL 2023-0 Yes [id number] 50mg Q24H Take 1 Method i (ULTRAM) [...] by mouth l daily. traMADoL 2023-0 Yes [id number] 50mg Q24H Take 1 Method i (ULTRAM) [...] mouth l daily for 30 days. amLODIPine 2022- No 5mg QD Take 1 Meth aubree (NORVASC) 5 5-30 -30 tablet (5 st mg tablet 00:00: 04:59 mg total) Ho spita 00 :00 by mouth l daily for 30 days. amLODIPine 2022- No 5mg QD Take 1 Meth aubree (NORVASC) 5 30 -30 tablet (5 st mg tablet 00:00: 04:59 mg total) Ho spita 00 :00 by mouth l daily for 30 days. amLODIPine 2022- No 5mg QD Take 1 Meth aubree (NORVASC) 5 -30 -30 tablet (5 st mg tablet 00:00: 04:59 mg total) Ho spita 00 :00 by mouth l daily for 30 days. amLODIPine 2022- No 5mg QD Take 1 Meth aubree (NORVASC) 5 30 -30 tablet (5 st mg tablet 00:00: 04:59 mg total) Ho spita 00 :00 by mouth l daily for 30 days. amLODIPine 2022- No 5mg QD Take 1 Meth aubree (NORVASC) 5 30 -30 tablet (5 st mg tablet 00:00: 04:59 mg total) Ho spita 00 :00 by mouth l daily for 30 days. ciprofloxac 2022- No 500mg Q.5D Take 1 Me thodi in (Cipro) 01-[address] 500 MG 00:00: 04:59 (500 mg Hospita tablet 00 :00 total) by l mouth 2 (two) times a day for 5 days. metroNIDAZO 2022- No 500mg Q.[id number] Take 1 Methodi LE (FlagyL) 01-07- [id number] tablet st 500 MG 00:00: 04:59 3D [...] 5 days. metroNIDAZO 2023-0 2023- No 500mg Q.[id number] Take 1 Methodi LE (FlagyL) 01-[id number] 500 MG 00:00: 04:59 3D [...] 5 days. metroNIDAZO 2023-0 2023- No 500mg Q.24291985 Take 1 Methodi LE (FlagyL) 01-[id number] 500 MG 00:00: 04:59 3D [...] 5 days. metroNIDAZO 2023-0 2023- No 500mg Q.[id number] Take 1 Methodi LE (FlagyL) 01-[id number] 500 MG 00:00: 04:59 3D (500 mg Hospita tablet 00 :00 total) by l mouth 3 (three) times a day for 5 days. ciprofloxac 2023-0 2023- No 500mg Q.5D Take 1 Me thodi in (Cipro) 01-07- tablet st 500 MG 00:00: 04:59 (500 mg Hospita tablet 00 :00 total) by l mouth 2 (two) times a day for 5 days. metroNIDAZO 2023-0 2023- No 500mg Q.[id number] Take 1 Methodi LE (FlagyL) 01-07- [id number] tablet st 500 MG 00:00: 04:59 3D [...] 5 days. metroNIDAZO 2023-0 2023- No 500mg Q.[id number] Take 1 Methodi LE (FlagyL) 01-[id number] 500 MG 00:00: 04:59 3D [...] 5 days. metroNIDAZO 2023-0 2023- No 500mg Q.[id number] Take 1 Methodi LE (FlagyL) 01-[id number] 500 MG 00:00: 04:59 3D [...] 5 days. metroNIDAZO 2023-0 2023- No 500mg Q.[id number] Take 1 Methodi LE (FlagyL) 01-[id number] 500 MG 00:00: 04:59 3D (500 mg Hospita tablet 00 :00 total) by l mouth 3 (three) times a day for 5 days. ciprofloxac 2022- No 500mg Q.5D Take 1 Me thodi in (Cipro) 01-[address] 500 MG 00:00: 04:59 (500 mg Hospita tablet 00 :00 total) by l mouth 2 (two) times a day for 5 days. metroNIDAZO 2022- No 500mg Q.76127149 Take 1 Methodi LE (FlagyL) 01-[id number] 500 MG 00:00: 04:59 3D (500 mg Hospita tablet 00 :00 total) by l mouth 3 (three) times a day for 5 days. butalbital- 2022- No 1{tbl} Q6H Take 1 M ethodi acetaminoph 01-07 tablet by [facility] 00:00: 04:59 mouth Hospita (FIORICET) 00 :00 every 6 l 50-325-40 (six) mg per hours as tablet needed for headaches for up to 2 days. butalbital- 2022- No 1{tbl} Q6H Take 1 M ethodi acetaminoph 01-07 [facility]: 04:59 mouth Hospita (FIORICET) 00 :00 [...] 1 M ethodi acetaminoph 01-07 [facility]: 04:59 mouth Hospita (FIORICET) 00 :00 every 6 l 50-325-40 (six) mg per hours as tablet needed for headaches for up to 2 days. butalbital- 2022- No 1{tbl} Q6H Take 1 M ethodi acetaminoph 5-29 06- tablet by [facility] 00:00: 04:59 mouth Hospita (FIORICET) 00 :00 every 6 l 50-325-40 (six) mg per hours as tablet needed for headaches for up to 2 days. butalbital- 2022- No 1{tbl} Q6H Take 1 M ethodi acetaminoph 5-29 06- tablet by [facility] 00:00: 04:59 mouth Hospita (FIORICET) 00 :00 every 6 l 50-325-40 (six) mg per hours as tablet needed for headaches for up to 2 days. butalbital- 2022- No 1{tbl} Q6H Take 1 M ethodi acetaminoph 5-29 06- tablet by [facility] 00:00: 04:59 mouth Hospita (FIORICET) 00 :00 every 6 l 50-325-40 (six) mg per hours as tablet needed for headaches for up to 2 days. butalbital- 2022- No 1{tbl} Q6H Take 1 M ethodi acetaminoph 5-29 06- tablet by [facility] 00:00: 04:59 mouth Hospita (FIORICET) 00 :00 every 6 l 50-325-40 (six) mg per hours as tablet needed for headaches for up to 2 days. butalbital- 2022- No 1{tbl} Q6H Take 1 M ethodi acetaminoph 5-29 06- tablet by [facility] 00:00: 04:59 mouth Hospita (FIORICET) 00 :00 every 6 l 50-325-40 (six) mg per hours as tablet needed for headaches for up to 2 days. ondansetron 0 Yes [address] (Zofran) 8 4-06 as needed Luke s MG tablet 16:50: [address] ondansetron 2022-0 Yes [address] (Zofran) 8 4-06 as needed Luke s MG tablet 16:50: [address] ondansetron 2022-0 Yes [address] (Zofran) 8 4-06 as needed Luke s MG tablet 16:50: [address] ondansetron 2022-0 Yes [address] (Zofran) 8 4-06 as needed Luke s MG tablet 16:50: [address] ondansetron 2022-0 Yes [address] (Zofran) 8 4-06 as needed Luke s MG tablet 16:50: [address] ondansetron 0 Yes [address] (Zofran) 8 4-06 as needed Luke s MG tablet 16:50: [address] ondansetron 2022-0 Yes [address] (Zofran) 8 4-06 as needed Luke s MG tablet 16:50: [address] ondansetron 0 Yes [address] (Zofran) 8 4-06 as needed Luke s MG tablet 16:50: [address] ondansetron 0 Yes [address] (Zofran) 8 4-06 as needed Luke s MG tablet 16:50: [address] ondansetron 0 Yes [address] [facility] [address] [facility] (Zofran) 8 4-06 as needed Luke s MG tablet 16:50: [address] ondansetron 0 Yes [address] (Zofran) 8 4-06 as needed Luke s MG tablet 16:50: [address] traMADol 2022-0 2022- No [id number] 50mg Q6H Take 1 [facility] (Ultram) 50 [...] mouth in the morning. omeprazole 3-0 Yes [facility] (PriLOSEC) 2-[address] 00:00: capsule 00 losartan-hy 3-0 Yes [facility] droCHLOROth 2-16 Health iazide 00:00: (Hyzaar) 00 100-25 MG tablet omeprazole 3-0 Yes [facility] (PriLOSEC) 2-[address] 00:00: capsule 00 losartan-hy 3-0 Yes [facility] droCHLOROth 2-16 Health iazide 00:00: (Hyzaar) 00 100-25 MG tablet omeprazole 3-0 Yes 1 capsule [facility] [...] capsule 00 morning Center meal omeprazole 2022-0 3- No [facility] (PriLOSEC) 2-16 09-[address] 00:00: 00:00 capsule 00 :00 losartan-hy 2022-0 2022- No [facility] droCHLOROth 2-16 09-12 Health iazide 00:00: 00:00 (Hyzaar) 00 :00 100-25 MG tablet ondansetron 2022- No 105 4mg [facility] (Zofran) 09-18 Health tablet 4 mg 16:42: 16:41 42 :42 traMADol 2022- No [id number] 50mg Q6H Take 1 [facility] (Ultram) 50 [...] in the morning. ciprofloxac 2022-0 2022- No [id number] 10[drp] Q.5D Administer UT in-dexameth 09-07 61630 10 drops He alth asone 00:00: 05:59 into each (Ciprodex) 00 :00 ear in the otic morning suspension and 10 drops in the evening. Do all this for 10 days. Lisinopril Lisinopril 2021-08 No 1{table QD Lisinopril 40 MG 40 MG -11 t} 40 MG 00:00: 00 Ondansetron Ondansetron 2021-08 No 1{table Ondansetro 4 MG 4 MG -11 t_on_ n 4 MG 00:00: e_tongu 00 [...] 1{table Ondansetro 4 MG 4 MG -11 t_on_ n 4 MG 00:00: e_tongu 00 e_and_a llow_to _dissol ve} docusate 2021-08 Yes 100 mg = 1 Mem oria sodium 100 0-08 cap, PO, l mg oral 14:59: Q12H, # 14 Herm faina capsule 00 cap, 0 Refill(s), Pharmacy: [facility] #[id number], 190.5, cm, 05/16/22 23:38:00 CDT, Height, 159.001, kg, 05/16/22 23:38:00 CDT, Weight senna 8.6 2021-08 Yes 8.6 mg = 1 Me moria mg oral 0-08 tab, PO, l tablet 14:59: Q12H, X 7 Sadi n 00 day, # 14 tab, 0 Refill(s), [id number], 190.5, cm, 05/16/22 23:38:00 CDT, Height, 159.001, kg, 05/16/22 23:38:00 CDT, Weight polyethylen 2021-08 Yes 17 gm, PO, Memoria e glycol 0-08 BID, X 14 l 3350 oral 14:59: day, # 255 He rmann powder for 00 gm, 0 reconstitut Refill(s), ion Pharmacy: [facility] #[id number], 190.5, cm, 05/16/22 23:38:00 CDT, Height, 159.001, kg, 05/16/22 23:38:00 CDT, Weight celecoxib 2021-08 Yes 200 mg = 1 Me moria 200 mg oral 0-08 cap, PO, l capsule 13:50: BID, # 28 Kelly nn 00 cap, 0 Refill(s), Pharmacy: [facility] #[id number], 190.5, cm, 05/16/22 23:38:00 CDT, Height, 159.001, kg, 05/16/22 23:38:00 CDT, Weight Omnipaque 2021-08 No 100 mL, Memor ia 350 mg/mL 0-08 Route: l 02:52: IVP, Drug [place] 00 Form: SOLN, Dosing Weight 159.001, kg, [...] Duration: 30 day, Stop date: 06/17/22 16:00:00 [employer] CONSULTANT, 0 hydrOXYzine 2021-08 No Notes: David katarzyna 0-07 (Same as: l 22:45: Vistaril) [place] Omnipaque 2021-08 No Notes: Memori a 350 [...] 0-07 not exceed l 17:20: 4 gm/day. [place] 00 (Same as: Tylenol) tramadol 50 2021-08 No Notes: Not Memoria mg oral 0-07 to exceed l tablet 16:55: 400mg/day. Kelly nn 00 (Same As: Ultram) tramadol 50 2021-08 Yes 50 mg = 1 M emoria mg oral 0-07 tab, PO, l tablet 12:42: Q6H, PRN [place] 00 Pain, not to exceed 400 mg/day, X 5 day, # 20 tab, 0 Refill(s), Pharmacy: [id number], 190.5, cm, 05/16/22 23:38:00 CDT, Height, 159.001, kg, 05/16/22 23:38:00 CDT, Weight lisinopril 2021-08 No Notes: Memor ia 0-06 (Same as: l 17:27: Prinivil, [place] Zestril) docusate 2021-08 No Notes: Memoria 0-06 (Same as: l 14:00: Colace) [place] (Do Not Crush) senna 2021-08 No Notes: Memoria 0-06 (Same as: l 14:00: Senokot) [place] ofloxacin 2021-08 No Notes: Memori a otic 0.3% 0-06 (Same as: l solution 14:00: Floxin [place] 00 Otic) pantoprazol 2021-08 No Notes: David katarzyna e 0-06 Tablet l 14:00: should not [place] 00 be chewed or crushed. (Same as: Protonix) topiramate 2021-08 No Notes: Memor ia 0-06 (Same As: l 14:00: Topamax) [place] 00 "Do Not Crush" [facility] [...] 0.9% 0-06 (Same as: l 02:00: BD [place] 00 Posiflush) Keppra 500 2021-08 No Notes: Memor ia mg oral 0-06 (Same l tablet 02:00: as:Keppra) Kelly nn 00 sucralfate 2021-08 No Notes: May M emoria 0-06 interfere l 02:00: w/enteral [place] [...] Rate: 75 l 0.9% IV 00:53: ml/hr, [place] 1,000 mL 00 Infuse over: 13.3 hr, [...] 0-06 TABLET BY l oral 00:52: MOUTH [place] enteric 00 EVERY DAY coated tablet sucralfate 2021-08 Yes 1 gm = 1 Mem oria 1 g oral 0-06 tab, PO, l tablet 00:52: Before [place] 00 Meals & Bedtime, # 120 tab, 3 Refill(s) amoxicillin 2021-08 No 1 tab, PO, Memoria -clavulanat 0-06 BID, # 20 l e 875 00:52: tab, 0 [place] mg-125 mg 00 Refill(s) oral tablet metoclopram [...] tab, PO, l tablet 00:52: Q6H, PRN [place] 00 Pain, # 40 tab, 0 Refill(s) [...] tab, PO, l tablet 00:52: Daily, # [place] 00 30 tab, 3 Refill(s) ofloxacin 2021-08 [...] 0-06 mL, Route: l 00:45: IVP, Drug [place] 00 form: INJ, Q15Min, Dosing Weight 159.091, kg, PRN Hypertensi on, Start date: 05/16/22 19:45:00 CDT, Duration: 3 doses or times, Stop date: Limited # of times, 0 hydrALAZINE 2021-08 No Notes: David katarzyna 0-06 (Same as: l 00:45: Apresoline [place] 00 ) Push over 5 minutes ondansetron 2021-08 No Notes: David katarzyna 0-06 (Same as: l 00:45: Zofran) [place] MEDICATION WASTE Product Size: 4 mg Product Wasted: ___ mg [place] 2021-08 No Notes: Do Memoria 10/325 oral 0-06 not exceed l tablet 00:45: 4gm/day of Kelly acetaminop hen. (Same as: [place] 325/10) Dilaudid 2021-08 No 0.5 mg, Memori a 0-06 0.25 mL, l 00:45: Route: [place] IVP, Drug form: SOLN, Q3H, Dosing Weight 159.091, kg, PRN Pain Score 7-10, Start date: 05/16/22 19:45:00 CDT, Duration: 30 day, Stop date: 06/15/22 19:44:00 CDT, 0 Benadryl 2021-08 No Notes: Memoria 0-06 (Same as: l 00:45: Benadryl) Chlorasepti 2021-08 No Notes: David katarzyna c 1.4% 0-06 Chlorasept l spray 00:45: ic [place] (Same as: Chlorasept ic, Sore Throat [place]) WASTE: F/P - Black; E - Municipal [...] ia 0-05 Route: PO, l 23:44: ONCE, [place] 00 Dosing Weight 159.091, kg, Start date: 05/16/22 18:44:00 CDT, Stop date: 05/16/22 18:44:00 CDT Lactated 2021-08 No 1,000 mL, David katarzyna Ringers 0-05 Infuse l (Bolus) IV 23:44: Over: 1 Herm faina 00 hr, Route: IV, ONCE, Priority: STAT, Dosing Weight 159.091 kg, Start date: 05/16/22 18:44:00 CDT, Stop date: 05/16/22 18:44:00 CDT No known 2021-08 No No known UT medications 0-05 medication He alth 15:32: s 45 amoxicillin 2021-08 Yes 1{tbl} Q12H Take 1 UT -clavulanat 0-03 tablet by [facility] e 00:00: mouth (Augmentin) 00 every 12 875-125 MG (twelve) tablet hours. FOR 7 DAYS topiramate 2021-08 Yes TAKE 1 UT (Topamax) 0-03 TABLET BY [facility]alt [facility] 25 MG 00:00: MOUTH tablet 00 EVERY 12 HOURS FOR 10 DAYS amoxicillin 2021-08 Yes 1{tbl} Q12H Take 1 UT -clavulanat 0-03 tablet by [facility] e 00:00: mouth (Augmentin) 00 every 12 [...] Take 1 UT -clavulanat 0-03 tablet by [facility] e 00:00: mouth (Augmentin) 00 every 12 875-125 MG (twelve) tablet hours. FOR 7 DAYS topiramate 2021-08 Yes TAKE 1 UT (Topamax) 0-03 TABLET BY [facility]alt [facility] 25 MG 00:00: MOUTH tablet 00 EVERY 12 HOURS FOR 10 DAYS amoxicillin 2021-08- No 1{tbl} Q12H Take 1 U T -clavulanat 0-03 09-12 tablet by He alth e 00:00: 00:00 mouth (Augmentin) 00 :00 every 12 875-125 MG (twelve) tablet hours. FOR 7 DAYS topiramate 2021-08 No TAKE 1 UT (Topamax) 0-03 09-12 TABLET BY Heal th 25 MG 00:00: 00:00 MOUTH tablet 00 :00 EVERY 12 HOURS FOR 10 DAYS Augmentin [...] (Bolus) IV 01:19: Over: 1 Herm faina hr, Route: IV, ONCE, Priority: STAT, Dosing [...] Memoria Sulfate 0-01 (Same l 15:19: as:MORPhin [place] e Sulfate) Benadryl 2021-08 No 25 mg, Memoria 0-01 Route: l 14:48: IVP, ONCE, Dosing Weight 145.455, kg, Priority: STAT, Start date: 05/12/22 9:48:00 CDT, Stop date: 05/12/22 9:48:00 CDT Isolyte S 2021-08 No 500 mL, Memor ia PH-7.4 0-01 Infuse l (Bolus) IV 14:48: Over: 1 Herm faina hr, Route: IV, Drug form: INJ, ONCE, [...] CDT, Stop date: 05/12/22 8:26:00 CDT morphine 2021- No 4 mg, Memoria Sulfate 0-01 Route: l 13:23: IVP, ONCE, Dosing Weight 145.455, kg, Priority: STAT, Start date: 05/12/22 8:23:00 CDT, Stop date: 05/12/22 8:23:00 CDT ketOROLAC 2021- No 4 days Memor ia 0-01 l 10:21: MEDICATION WASTE Product Size: 30 mg Product Wasted: ___ mg lisinopril 2-0 Yes 20mg QD Take 20 mg U [...] (one) time 00 each day. lisinopril 2022-0 2023- No 20mg QD Take 20 mg UT 20 MG 8-16 09-12 by mouth 1 Health tablet 00:00: 00:00 (one) time 00 :00 each day. lisinopril 2022-0 2023- No 20mg QD Take 20 mg UT 20 MG 8-16 09-12 by mouth 1 Health tablet 00:00: 00:00 (one) time 00 :00 each day. ofloxacin 2021-0 Yes INSTILL 4 [...] solution 00 TWICE A DAY ofloxacin 0 3- No INSTILL 4 UT (Floxin) 6-15 09-12 DROPS INTO Heal [facility] 0.3 % otic 00:00: 00:00 LEFT EAR solution 00 :00 TWICE A DAY No known No No known UT medications 3-11 medication He alth 13:38: s 44 Cefazolin No Notes: Memori a 10-10 (Same As: l 04:00: [place] Kefzocooper) MEDICATION WASTE Product Size: 1000 mg Product Wasted: ___ mg Cefazolin No Notes: Memori a 10-10 (Same As: l 04:00: [place] Kefzol) MEDICATION WASTE Product Size: 1000 mg Product Wasted: ___ mg Oxycodone No 10 mg, Memori a 10-09 Route: PO, l 21:36: Drug form: [place] 00 TAB, ONCE, Dosing Weight 156, kg, PRN Pain Score 7-10, Start date: 10/09/21 15:36:00 [employer]ANT Oxycodone 0 No 10 mg, Memori a 10-09 Route: PO, l 21:36: Drug form: [place] 00 TAB, ONCE, Dosing Weight 156, kg, PRN Pain Score 7-10, Start date: 10/09/21 15:36:00 [employer] CONSULTANT Ofirmev 0 No or = 50 Memori a - kg, Start l 21:19: date: 10/09/21 15:19:00 [employer] CONSULTANT Ofirmev 2021-0 No or = 50 Memori a - kg, Start l 21:19: date: 10/09/21 15:19:00 [employer]ANT sugammadex 0 No Route: IV, M emoria (ANES) 10-09 Drug form: l 21:05: SOLN, [place] 00 ONCE, Stop date: 10/09/21 15:05:00 [employer]ANT sugammadex 2021-0 No Route: IV, M emoria (ANES) 10-09 Drug form: l 21:05: SOLN, [place] 00 ONCE, Stop date: 10/09/21 15:05:00 [employer]ANT Hydromorpho 2021-0 No Notes: David katarzyna ne - Same as l 21:02: Dilaudid Flumazenil 0 No Notes: Memor ia 10-09 (Same as: l 21:02: Romazicon) Naloxone 0 No Notes: Memoria 10-09 Same as l 21:02: Narcan Ondansetron 0 No 4 mg, Memor ia 10-09 Route: l 21:02: IVP, ONCE, [place] 00 Dosing Weight 156, kg, PRN Nausea & Vomiting, Start date: 10/09/21 15:02:00 [employer] CONS[employer]ANT Hydromorpho 2021-0 No Notes: David katarzyna ne - Same as l 21:02: Dilaudid Flumazenil 0 No Notes: Memor ia - (Same as: l 21:02: Romazicon) Naloxone 2021-0 No Notes: Memoria 10-09 Same as l 21:02: Narcan Ondansetron 2021-0 No 4 mg, Memor ia 10-09 Route: l 21:02: IVP, ONCE, [place] 00 Dosing Weight 156, kg, PRN Nausea & Vomiting, Start date: 10/09/21 15:02:00 [employer]ANT ondansetron 2021-0 No Route: IV, Memoria (ANES) 10-09 Drug form: l 21:00: INJ, ONCE, [place] 00 Stop date: 10/09/21 15:00:00 [employer]ANT ondansetron 2021-0 No Route: IV, Memoria (ANES) 10-09 Drug form: l 21:00: INJ, ONCE, [place] 00 Stop date: 10/09/21 15:00:00 [employer] CONSULTANT ceFAZolin 2021-0 No Route: IV, Me moria (ANES) 2- Drug form: l 20:38: INJ, ONCE, Stop date: 10/09/21 14:38:00 [employer] CONSULTANT ceFAZolin 2021-0 No Route: IV, Me moria (ANES) - Drug form: l 20:38: INJ, ONCE, Stop date: 10/09/21 14:38:00 [employer] CONSULTANT propofol 2021-0 No Route: IV, Mem oria (ANES) 10-09 Drug form: l 20:33: INJ, ONCE, Stop date: 10/09/21 14:33:00 [employer]ANT rocuronium 2021-0 No Route: IV, M emoria (ANES) - Drug form: l 20:33: INJ, ONCE, Stop date: 10/09/21 14:33:00 [employer] CONSULTANT fentaNYL 2021-0 No Route: IV, Mem oria (ANES) 10-09 Drug form: l 20:33: INJ, ONCE, Stop date: 10/09/21 14:33:00 [employer] CONSULTANT dexamethaso 2021-0 No Route: IV, Memoria ne (ANES) 10-09 Drug form: l 20:33: INJ, ONCE, Stop date: 10/09/21 14:33:00 [employer] CONSULTANT propofol 2021-0 No Route: IV, Mem oria (ANES) - Drug form: l 20:33: INJ, ONCE, Stop date: 10/09/21 14:33:00 [employer] CONSULTANT rocuronium 2021-0 No Route: IV, M emoria (ANES) - Drug form: l 20:33: INJ, ONCE, Stop date: 10/09/21 14:33:00 [employer] CONSULTANT fentaNYL 2021-0 No Route: IV, Mem oria (ANES) 2- Drug form: l 20:33: INJ, ONCE, Stop date: 10/09/21 14:33:00 [employer] CONSULTANT dexamethaso 2021-0 No Route: IV, Memoria ne (ANES) - Drug form: l 20:33: INJ, ONCE, Stop date: 10/09/21 14:33:00 [employer] CONSULTANT lidocaine 2021-0 No Route: IV, Me moria (ANES) - Drug form: l 20:28: INJ, ONCE, [place] 00 Stop date: 10/09/21 14:28:00 [employer]ANT lidocaine No Route: IV, Me moria (ANES) - Drug form: l 20:28: INJ, ONCE, [place] 00 Stop date: 10/09/21 14:28:00 [employer] CONSULTANT Isolyte S No Route: IV, Me moria PH 7.4 2- Total l (ANES) 1000 19:29: Volume: Her jones mL 00 1,000, Start date: 10/09/21 13:29:00 [employer] CONSULTANT, Stop date: 10/09/21 14:29:00 [employer]MENT CONSULTANT Isolyte S 2021- No Route: IV, Me moria PH 7.4 2- Total l (ANES) 1000 19:29: Volume: Her jones mL 00 1,000, Start date: 10/09/21 13:29:00 [employer] CONSULTANT, Stop date: 10/09/21 14:29:00 [employer] CONSULTANT Epinephrine Yes Notes: David katarzyna 0.01 MG/ML [...] Drug form: FILM, Start date: 10/09/21 9:00:00 [employer] CONS[employer]ANT, Duration: 30 day, Stop date: 11/07/21 9:00:00 CDT, 0 Levetiracet No 500 mg, 1 M emoria am 500 MG 10-09 tab, l Oral Tablet 15:00: Route: PO, [place] [Keppra] 00 Drug form: TAB, Q12H, Dosing Weight 156, kg, Start date: 10/09/21 9:00:00 [employer] CONS[employer]ANT, Duration: 30 day, Stop date: 11/07/21 21:00:00 CDT, 0 Lidocaine 2021-0 No 1 patch, David katarzyna 0.05 MG/MG 10-09 Route: l Transdermal 15:00: TOP, Sadi n Patch 00 Daily, Drug form: FILM, Start date: 10/09/21 9:00:00 [employer] CONSULTANT, Duration: 30 day, Stop date: 11/07/21 9:00:00 CDT, 0 Levetiracet No 500 mg, 1 M emoria am 500 MG 2-28 tab, l Oral Tablet 15:00: Route: PO, [place] [Keppra] 00 Drug form: TAB, Q12H, Dosing Weight 156, kg, Start date: 10/09/21 9:00:00 [employer] CONSULTANT, Duration: 30 day, Stop date: 11/07/21 21:00:00 CDT, 0 Hydromorpho 0 No Notes: David katarzyna ne 2- Same as l 13:57: Dilaudid [place] Hydromorpho 0 No Notes: David katarzyna ne 2-28 Same as l 13:57: Dilaudid [place] 00 Reglan 0 No Notes: Memoria 2-28 (Same as: l 08:15: Reglan) [place] Dilaudid 2021-0 No Notes: Memoria 2-28 Same as l 08:15: Dilaudid [place] Reglan 2021-0 No Notes: Memoria 2-28 (Same as: l 08:15: Reglan) [place] Dilaudid 2021-0 No Notes: Memoria 2-28 Same as l 08:15: Dilaudid [place] Sodium 0 No 1,000 mL, Memori a Chloride - Rate: 75 l 0.9% IV 06:49: ml/hr, [place] 1,000 mL 00 Infuse over: 13.3 hr, Route: IV, Dosing Weight 156 kg, Total Volume: 1,000, Start date: 10/09/21 0:49:00 [employer] CONS[employer]ANT, Duration: 30 day, Stop date: 11/08/21 0:48:00 CDT, BSA: 2.9 m2, 0 Sodium 2021- No 1,000 mL, Memori a Chloride 2-28 Rate: 75 l 0.9% IV 06:49: ml/hr, [place] 1,000 mL 00 Infuse over: 13.3 hr, Route: IV, Dosing Weight 156 kg, Total Volume: 1,000, Start date: 10/09/21 0:49:00 [employer] CONS[employer]ANT, Duration: 30 day, Stop date: 11/08/21 0:48:00 CDT, BSA: 2.9 m2, 0 Docusate No Notes: Memoria 2-28 (Same as: l 03:00: Colace) [place] 00 (Do Not Crush) Docusate No Notes: Memoria 2-28 (Same as: l 03:00: Colace) [place] 00 (Do Not Crush) sennosides, No Notes: David katarzyna MCC 2-28 (Same as: l 03:00: Senokot) [place] 00 Saline No Notes: Memoria Flush 0.9% 2-28 (Same as: l 03:00: BD [place] 00 Posiflush) sennosides, No Notes: David katarzyna MCC 2-28 (Same as: l 03:00: Senokot) [place] 00 Saline No Notes: Memoria Flush 0.9% 2-28 (Same as: l 03:00: BD [place] 00 Posiflush) Sodium No 1,000 mL, Memori a Chloride 2-28 Rate: 50 l 0.9% IV 01:57: ml/hr, [place] 1,000 mL 00 Infuse over: 20 hr, Route: IV, Dosing Weight 156 kg, Total Volume: 1,000, Start date: 10/08/21 19:57:00 [employer] CONSULTANT, Duration: 30 day, Stop date: 11/07/21 19:56:00 CDT, BSA: 2.9 m2, 0 Acetaminoph No Notes: Do M emoria en 2-28 not exceed l 01:57: 4 gm/day. [place] 00 (Same as: Tylenol) Acetaminoph No Notes: David katarzyna en 325 MG / 2-28 (Same as: l Hydrocodone 01:57: [place] Kelly nn Bitartrate 00 325/5) Do 5 MG Oral not exceed Tablet 4gm/day of acetaminop hen. Morphine No Notes: Memoria 2-28 (Same l 01:57: as:MORPhin [place] 00 e Sulfate) Bisacodyl No Notes: Memori a 2-28 (Same As: l 01:57: Dulcolax, [place] 00 Bisco-Lax) Ondansetron No Notes: David katarzyna 2- (Same as: l 01:57: Zofran) MEDICATION WASTE Product Size: 4 mg Product Wasted: ___ mg Hydralazine No Notes: David katarzyna 2- (Same as: l 01:57: Apresoline [place] 00 ) Push over 5 minutes Labetalol No 10 mg, 2 David katarzyna 2-28 mL, Route: l 01:57: IVP, Drug form: INJ, Q15Min, Dosing Weight 156, kg, PRN Hypertensi on, Start date: 10/08/21 19:57:00 [employer] CONSULTANT, Duration: 3 doses or times, Stop date: Limited # of times, 0 Saline No Notes: Memoria Flush 0.9% 10-09 (Same as: l 01:57: BD [place] 00 Posiflush) Insulin No Notes: Memoria regular - (Same as: l 01:57: Humulin R) Roll in palms of hands gently; Do not shake vigorously . WASTE: F/P - Black; E - [employer] Trash Bin Stable for 31 days at room temperatur e Expires in days from ____Date Sodium No 1,000 mL, Memori a Chloride - Rate: 50 l 0.9% IV 01:57: ml/hr, [place] 1,000 mL 00 Infuse over: 20 hr, Route: IV, Dosing Weight 156 kg, Total Volume: 1,000, Start date: 10/08/21 19:57:00 [employer] CONSULTANT, Duration: 30 day, Stop date: 11/07/21 19:56:00 CDT, BSA: 2.9 m2, 0 Acetaminoph No Notes: Do M emoria en - not exceed l 01:57: 4 gm/day. [place] 00 (Same as: Tylenol) Acetaminoph No Notes: David katarzyna en 325 MG / 2- (Same as: l Hydrocodone 01:57: Marion Kelly nn Bitartrate 00 325/5) Do 5 MG Oral not exceed Tablet 4gm/day of acetaminop hen. Morphine No Notes: Memoria - (Same l 01:57: as:MORPhin [place] 00 e Sulfate) Bisacodyl No Notes: Memori a - (Same As: l :57: Dulcolax, Bisco-Lax) Ondansetron No Notes: David katarzyna - (Same as: l 01:57: Zofran) MEDICATION WASTE Product Size: 4 mg Product Wasted: ___ mg Hydralazine No Notes: David aktarzyna - (Same as: l 01:57: Apresoline ) Push over 5 minutes Labetalol No 10 mg, 2 David katarzyna 2-28 mL, Route: l :57: IVP, Drug form: INJ, Q15Min, Dosing Weight 156, kg, PRN Hypertensi on, Start date: 10/08/21 19:57:00 [employer] CONSULTANT, Duration: 3 doses or times, Stop date: [...] l 01:30: Dilaudid Dilaudid No Notes: Memoria 10-09 Same as l 01:30: Dilaudid Levetiracet Yes 500 mg = 1 Memoria am 500 MG 2-24 tab, PO, l Oral Tablet 13:52: Q12H, # 60 [place] [Keppra] 00 tab, 0 Refill(s), Pharmacy: [id number], 190.5, cm, 10/03/21 6:40:00 [employer] CONSULTANT, Height, 159.3, kg, 10/03/21 6:40:00 [employer] CONSULTANT, Weight docusate Yes 2 cap, PO, Mem oria sodium 50 2-24 QPM, X 10 l MG / 13:52: day, # 20 [place] sennosides, 00 cap, 0 MCC 8.6 MG Refill(s), Oral Pharmacy: [facility] #[id number], 190.5, cm, 10/03/21 6:40:00 [employer]MENT CONSULTANT, Height, 159.3, kg, 10/03/21 6:40:00 [employer]MENT CONSULTANT, Weight magnesium Yes 8.725 gm = Me moria citrate 2-24 150 ml, l 58.2 MG/ML 13:52: PO, ONCE, He rmann Oral 00 if no Solution bowel movement in couple days, # 300 ml, 0 Refill(s), Pharmacy: [facility] #[id number], 190.5, cm, 10/03/21 6:40:00 [employer]MENT CONSULTANT, Height, 159.3, kg, 10/03/21 6:40:00 [employer] DE[employer]MENT CONSULTANT, Weight POLYETHYLEN Yes 17 gm, PO, Memoria E GLYCOL 2-24 Daily, X l 3350 142 13:52: 10 day, # Herm faina MG/ML Oral 00 170 gm, 0 Solution Refill(s), [Miralax] Pharmacy: [facility] #[id number], 190.5, cm, 10/03/21 6:40:00 [employer] DE[employer]MENT CONSULTANT, Height, 159.3, kg, 10/03/21 6:40:00 [employer]MENT CONSULTANT, Weight Ondansetron No 4 mg = 1 Me moria 4 MG Oral 2-24 tab, PO, l Tablet 13:52: Q8H, PRN [place] [Zofran] 00 Nausea/vom iting, X 3 day, # 10 tab, 0 Refill(s), Pharmacy: [id number], 190.5, cm, 10/03/21 6:40:00 [employer] DEPL[employer]MENT CONSULTANT, Height, 159.3, kg, 10/03/21 6:40:00 [employer] DE[employer]MENT CONSULTANT, Weight Acetaminoph 0 Yes 1 tab, PO, Memoria en 325 MG / 2-24 Q4-6H, PRN l Hydrocodone 13:52: Pain Score [place] Bitartrate 00 4-6, X 5 5 MG Oral day, # 30 Tablet tab, 0 [[place] Refill(s), 5/325] other Levetiracet Yes 500 mg = 1 Memoria am 500 MG 2-24 tab, PO, l Oral Tablet 13:52: Q12H, # 60 [place] [Keppra] 00 tab, 0 Refill(s), Pharmacy: [facility] #[id number], 190.5, cm, 10/03/21 6:40:00 [employer], Height, 159.3, kg, 10/03/21 6:40:00 [employer], Weight docusate Yes 2 cap, PO, Mem oria sodium 50 2-24 QPM, X 10 l MG / 13:52: day, # 20 [place] sennosides, 00 cap, 0 MCC 8.6 MG Refill(s), Oral Pharmacy: [id number], 190.5, cm, 10/03/21 6:40:00 [employer], Height, 159.3, kg, 10/03/21 6:40:00 [employer], Weight magnesium Yes 8.725 gm = Me moria citrate 2-24 150 ml, l 58.2 MG/ML 13:52: PO, ONCE, He rmann Oral 00 if no Solution bowel movement in couple days, # 300 ml, 0 Refill(s), Pharmacy: [facility] #[id number], 190.5, cm, 10/03/21 6:40:00 [employer], Height, 159.3, kg, 10/03/21 6:40:00 [employer], Weight POLYETHYLEN 2022-0 Yes 17 gm, PO, Memoria E GLYCOL 2-24 Daily, X l 3350 142 13:52: 10 day, # Herm faina MG/ML Oral 00 170 gm, 0 Solution Refill(s), [Miralax] Pharmacy: [facility] #[id number], 190.5, cm, 10/03/21 6:40:00 [employer], Height, 159.3, kg, 10/03/21 6:40:00 [employer], Weight Ondansetron No 4 mg = 1 Me moria 4 MG Oral 2-24 tab, PO, l Tablet 13:52: Q8H, PRN [place] [Zofran] 00 Nausea/vom iting, X 3 day, # 10 tab, 0 Refill(s), Pharmacy: [facility] #[id number], 190.5, cm, 10/03/21 6:40:00 [employer], Height, 159.3, kg, 10/03/21 6:40:00 [employer], Weight Acetaminoph Yes 1 tab, PO, Memoria en 325 MG / 2-24 Q4-6H, PRN l Hydrocodone 13:52: Pain Score [place] Bitartrate 00 4-6, X 5 5 MG Oral day, # 30 Tablet tab, 0 [[place] Refill(s), 5/325] other heparin No Notes: Memoria [...] 0.9% 2-23 Same as: l 03:00: BD [place] 00 Posiflush Sterile Levetiracet No Notes: David katarzyna am 500 MG 2-23 (Same l Oral Tablet 03:00: as:Keppra) [place] [Keppra] Cefazolin No Notes: Memori a 2-23 (Same as l 02:00: Ancef) Cefazolin No Notes: Memori a 2-23 (Same as l 02:00: Ancef) Docusate No Notes: Memoria 2-22 (Same as: l 23:00: Colace) (Do Not Crush) sennosides, No Notes: David katarzyna MCC 2-22 (Same as: l 23:00: Senokot) Famotidine No Notes: Memor ia 20 MG Oral 10-03 (Same as: l Tablet 23:00: Pepcid) Docusate No Notes: Memoria 2-22 (Same as: l 23:00: Colace) (Do Not Crush) sennosides, No Notes: David katarzyna MCC 2-22 (Same as: l 23:00: Senokot) Famotidine No Notes: Memor ia 20 MG Oral 10-03 (Same as: l Tablet 23:00: Pepcid) Hydromorpho No 0.5 mg, Mem oria ne 10-03 Route: l 20:05: IVP, ONCE, Dosing Weight 159.3, kg, Priority: STAT, Start date: 10/03/21 14:05:00 [employer], Stop date: 10/03/21 14:05:00 [employer] Hydromorpho No 0.5 mg, Mem oria ne 10-03 Route: l 20:05: IVP, ONCE, Dosing Weight 159.3, kg, Priority: STAT, Start date: 10/03/21 14:05:00 [employer], Stop date: 10/03/21 14:05:00 [employer] metoprolol No Route: IV, M emoria (ANES) 10-03 Drug form: l 19:20: INJ, ONCE, Stop date: 10/03/21 13:20:00 [employer] CONS[employer]ANT metoprolol No Route: IV, M emoria (ANES) - Drug form: l 19:20: INJ, ONCE, [place] 00 Stop date: 10/03/21 13:20:00 [employer] CONSULTANT Oxycodone 2-0 No 10 mg, Memori a Hydrochlori 10-03 Route: PO, l de 5 MG 19:16: Drug form: Herm faina Oral Tablet 00 TAB, Q4H, Dosing Weight 159.3, kg, PRN Pain Score 7-10, Start date: 10/03/21 13:16:00 [employer] CONSULTANT, Duration: 30 day, Stop date: 11/02/21 13:15:00 CDT Oxycodone 2021-0 No 10 mg, Memori a Hydrochlori 10-03 Route: PO, l de 5 MG 19:16: Drug form: Herm faina Oral Tablet 00 TAB, Q4H, Dosing Weight 159.3, kg, PRN Pain Score 7-10, Start date: 10/03/21 13:16:00 [employer] CONSULTANT, Duration: 30 day, Stop date: 11/02/21 13:15:00 CDT sugammadex 2021-0 No Route: IV, M emoria (ANES) - Drug form: l 18:37: SOLN, [place] 00 ONCE, Stop date: 10/03/21 12:37:00 [employer] CONSULTANT sugammadex 2-0 No Route: IV, M emoria (ANES) - Drug form: l 18:37: SOLN, [place] 00 ONCE, Stop date: 10/03/21 12:37:00 [employer]MENT CONSULTANT ondansetron 2021-0 No Route: IV, Memoria (ANES) - Drug form: l 18:22: INJ, ONCE, [place] 00 Stop date: 10/03/21 12:22:00 [employer]MENT CONSULTANT ondansetron 2-0 No Route: IV, Memoria (ANES) 2- Drug form: l 18:22: INJ, ONCE, [place] 00 Stop date: 10/03/21 12:22:00 [employer]MENT CONSULTANT Dexamethaso 2-0 No Notes: David katarzyna ne - Give with l 18:00: food. [place] 00 (Same As: Decadron) Dexamethaso 2021-0 No Notes: David katarzyna ne -22 Give with l 18:00: food. (Same As: [...] 10 MG Oral hen. (Same Tablet as: [place] [Marion 325/10) 10/325] Dilaudid No Notes: Memoria 2-22 Same as l 17:50: Dilaudid Benadryl No Notes: Memoria 2-22 (Same as: l 17:50: Benadryl) phenol No Notes: Memoria 2-22 Chlorasept l 17:50: ic [place] (Same as: Chlorasept ic, Sore Throat [place]) WASTE: F/P - Black; E - Municipal Trash Bin Bisacodyl No Notes: Memori a 2-22 (Same As: l 17:50: Dulcolax, Bisco-Lax) Robaxin No Notes: Memoria 2-22 (Same l 17:50: as:Robaxin ) Melatonin 3 No Notes: David katarzyna MG Extended 2-22 (Same as: l Release 17:50: Melatonin) faina Tablet 00 Tylenol No Notes: Do [...] Rate: 100 l 0.9% IV 17:50: ml/hr, [place] 1,000 mL 00 Infuse over: 10 hr, Route: IV, Dosing Weight 159.3 kg, Total Volume: 1,000, Start date: 10/03/21 11:50:00 [employer] CONSULTANT, Duration: 30 day, Stop date: 11/02/21 11:49:00 CDT, BSA: 2.93 m2, 0 Labetalol No 10 mg, 2 David katarzyna 2-22 mL, Route: l 17:50: IVP, Drug form: INJ, Q15Min, Dosing Weight 159.3, kg, PRN Hypertensi on, Start date: 10/03/21 11:50:00 [employer] CONSULTANT, Duration: 3 doses or times, Stop date: 10/04/21 0:00:00 [employer]MENT CONSULTANT, 0 Hydralazine No Notes: David katarzyna 2-22 [...] 10 MG Oral hen. (Same Tablet as: [place] [Marion 325/10) 10/325] Dilaudid No Notes: Memoria 2-22 Same as l 17:50: Dilaudid Benadryl No Notes: Memoria 2-22 (Same as: l 17:50: Benadryl) 00 phenol No Notes: Memoria 2-22 Chlorasept l 17:50: ic [place] (Same as: Chlorasept ic, Sore Throat [place]) WASTE: F/P - Black; E - Municipal Trash Bin Bisacodyl No Notes: Memori a 2-22 (Same As: l 17:50: Dulcolax, Bisco-Lax) Robaxin No Notes: Memoria 2-22 (Same l 17:50: as:Robaxin ) Melatonin 3 No Notes: David katarzyna MG Extended - (Same as: l Release 17:50: Melatonin) Herm faina Tablet 00 Tylenol No Notes: Do Memor ia 2- not exceed l 17:50: 4 gm/day. [place] (Same as: Tylenol) Reglan No Notes: Memoria [...] Total Volume: 1,000, Start date: 10/03/21 11:50:00 [employer] CONSULTANT, Duration: 30 day, Stop date: 11/02/21 11:49:00 CDT, BSA: 2.93 m2, 0 Labetalol No 10 mg, 2 David katarzyna 2-22 mL, Route: l 17:50: IVP, Drug form: INJ, Q15Min, Dosing Weight 159.3, kg, PRN Hypertensi on, Start date: 10/03/21 11:50:00 [employer] CONSULTANT, Duration: 3 doses or times, Stop date: 10/04/21 0:00:00 [employer]MENT CONSULTANT, 0 lidocaine No Route: IV, Me moria (ANES) 10-03 Drug form: l 16:45: INJ, ONCE, Stop date: 10/03/21 10:45:00 [employer] CONSULTANT rocuronium 2021-0 No Route: IV, M emoria (ANES) 2- Drug form: l 16:45: INJ, ONCE, Stop date: 10/03/21 10:45:00 [employer] CONSULTANT dexamethaso 2021-0 No Route: IV, Memoria ne (ANES) 2- Drug form: l 16:45: INJ, ONCE, Stop date: 10/03/21 10:45:00 [employer]MENT CONSULTANT lidocaine 2021-0 No Route: IV, Me moria (ANES) - Drug form: l 16:45: INJ, ONCE, Stop date: 10/03/21 10:45:00 [employer]MENT CONSULTANT rocuronium 2021-0 No Route: IV, M emoria (ANES) 2- Drug form: l 16:45: INJ, ONCE, Stop date: 10/03/21 10:45:00 [employer]MENT CONSULTANT dexamethaso 2021-0 No Route: IV, Memoria ne (ANES) 2- Drug form: l 16:45: INJ, ONCE, Stop date: 10/03/21 10:45:00 [employer]MENT CONSULTANT phenylephri 2021-0 No Route: IV, Memoria ne (ANES) 2- Drug form: l 16:40: INJ, ONCE, Stop date: 10/03/21 10:40:00 [employer]MENT CONSULTANT phenylephri 2021-0 No Route: IV, Memoria ne (ANES) 2- Drug form: l 16:40: INJ, ONCE, Stop date: 10/03/21 10:40:00 [employer] CONSULTANT Hydralazine 2021-0 No Notes: David katarzyna 2-22 (Same as: l 16:37: Apresoline ) Push over 5 minutes Labetalol 2021-0 No 10 mg, 2 David katarzyna 2-22 mL, Route: l 16:37: IVP, Drug form: INJ, Q5Min, Dosing Weight 159.3, kg, PRN Elevated BP, Start date: 10/03/21 10:37:00 [employer] CONSULTANT, Duration: 5 doses or times, Stop date: 10/04/21 0:00:00 [employer]MENT CONSULTANT, 0 Oxycodone No Notes: Memori a Hydrochlori [...] katarzyna 2-22 (Same as: l 16:37: Apresoline [place] ) Push over 5 minutes Labetalol No 10 mg, 2 David katarzyna 2-22 mL, Route: l 16:37: IVP, Drug form: INJ, Q5Min, Dosing Weight 159.3, kg, PRN Elevated BP, Start date: 10/03/21 10:37:00 [employer]MENT CONSULTANT, Duration: 5 doses or times, Stop date: 10/04/21 0:00:00 [employer]MENT CONSULTANT, 0 Oxycodone No Notes: Memori a Hydrochlori [...] katarzyna 2-22 (Same as: l 16:37: Zofran) [place] 00 MEDICATION WASTE Product Size: 4 mg Product Wasted: ___ mg propofol 2022-0 No Route: IV, Mem oria (ANES) 2-22 Drug form: l 16:35: INJ, ONCE, Stop date: 10/03/21 10:35:00 [employer]MENT CONSULTANT fentaNYL 2021-0 No Route: IV, Mem oria (ANES) 2-22 Drug form: l 16:35: INJ, ONCE, Stop date: 10/03/21 10:35:00 [employer]MENT CONSULTANT propofol 2021-0 No Route: IV, Mem oria (ANES) 2-22 Drug form: l 16:35: INJ, ONCE, Stop date: 10/03/21 10:35:00 [employer]MENT CONSULTANT fentaNYL 2021-0 No Route: IV, Mem oria (ANES) 2- Drug form: l 16:35: INJ, ONCE, Stop date: 10/03/21 10:35:00 [employer]MENT CONSULTANT midazolam 2021-0 No Route: IV, Me moria (ANES) 2- Drug form: l 16:24: SOLN, ONCE, Stop date: 10/03/21 10:24:00 [employer]MENT CONSULTANT ceFAZolin 2021-0 No Route: IV, Me moria (ANES) 2-22 Drug form: l 16:24: INJ, ONCE, Stop date: 10/03/21 10:24:00 [employer]MENT CONSULTANT midazolam 2021-0 No Route: IV, Me moria (ANES) 2-22 Drug form: l 16:24: SOLN, ONCE, Stop date: 10/03/21 10:24:00 [employer]MENT CONSULTANT ceFAZolin 2021-0 No Route: IV, Me moria (ANES) 2-22 Drug form: l 16:24: INJ, ONCE, Stop date: 10/03/21 10:24:00 [employer]MENT CONSULTANT levETIRAcet 2021-0 No Route: IV, Memoria am (ANES) 2-22 Drug form: l 100 mg 16:20: INJ, Start [place] date: 10/03/21 10:20:00 [employer]MENT CONSULTANT, Stop date: 10/03/21 11:20:00 [employer]MENT CONSULTANT levETIRAcet 2021-0 No Route: IV, Memoria am (ANES) 2- Drug form: l 100 mg 16:20: INJ, Start [place] date: 10/03/21 10:20:00 [employer]MENT CONSULTANT, Stop date: 10/03/21 11:20:00 [employer]MENT CONSULTANT propofol No Route: IV, Mem oria (ANES) 10 10-03 Drug form: l mg 15:26: INJ, Start [place] date: 10/03/21 9:26:00 [employer]MENT CONSULTANT, Stop date: 10/03/21 10:26:00 [employer]MENT CONSULTANT propofol No Route: IV, Mem oria (ANES) 10 10-03 Drug form: l mg 15:26: INJ, Start [place] 00 date: 10/03/21 9:26:00 [employer]MENT CONSULTANT, Stop date: 10/03/21 10:26:00 [employer]MENT CONSULTANT Isolyte S No Route: IV, Me moria PH 7.4 - Total l (ANES) 1000 14:26: Volume: Her jones mL 00 1,000, Start date: 10/03/21 8:26:00 [employer]MENT CONSULTANT, Stop date: 10/03/21 9:26:00 [employer] DE[employer]MENT CONSULTANT Isolyte S No Route: IV, Me moria PH 7.4 10-03 Total l (ANES) 1000 14:26: Volume: Her jones mL 00 1,000, Start date: 10/03/21 8:26:00 [employer] DE[employer]MENT CONSULTANT, Stop date: 10/03/21 9:26:00 [employer]MENT CONSULTANT Isolyte S No Notes: Memori a PH 7.4 - (Same as: l 1,000 mL 12:35: Isolyte S Herm faina 00 PH7.4, Normosol-R PH 7.4, Plasma-Lyt e A ) Acetaminoph No 1,000 mg, M emoria en 10-03 Route: PO, l 12:35: Drug form: [place] 00 TAB, PRE OP, Dosing Weight 160.3, kg, Priority: NOW, Start date: 10/03/21 6:35:00 [employer] CONSULTANT, Duration: 1 doses or times Isolyte S No Notes: Memori a PH 7.4 - (Same as: l 1,000 mL 12:35: Isolyte S Herm faina 00 PH7.4, Normosol-R PH 7.4, Plasma-Lyt e A ) Acetaminoph No 1,000 mg, M maria inesria en 2- Route: PO, l 12:35: Drug form: [place] 00 TAB, PRE OP, Dosing Weight 160.3, kg, Priority: NOW, Start date: 10/03/21 6:35:00 [employer] CONSULTANT, Duration: 1 doses or times NS + [...] 2-21 Refill(s) l 18:02: [place] 00 Sodium 2022-0 No 250 mL, Memoria Chloride 2-21 Rate: To l 0.9% 17:06: prime line [place] (titrate) 00 and flush 250 mL remaining blood products., Dosing Weight 160.3, kg, Route: IV, Total Volume: 250, Start Date: 10/02/21 11:06:00 [employer] CONSULTANT, Duration: 1 day, Stop date: 10/03/21 11:05:00 [employer]MENT CONSULTANT, Replace Every: 24 hr, 0 Sodium 2022-0 No 250 mL, Memoria Chloride 2-21 Rate: To l 0.9% 17:06: prime line [place] (titrate) 00 and flush 250 mL remaining blood products., Dosing Weight 160.3, kg, Route: IV, Total Volume: 250, Start Date: 10/02/21 11:06:00 [employer]MENT CONSULTANT, Duration: 1 day, Stop date: 10/03/21 11:05:00 [employer]MENT CONSULTANT, Replace Every: 24 hr, 0 Acetaminoph 2021-0 No 1 tab, David katarzyna en 325 MG / 05-11 Route: PO, l Hydrocodone 12:17: Drug Form: [place] Bitartrate 00 TAB, 5 MG Oral Dosing Tablet Weight 139.409, kg, ONCE, STAT, Start date: 05/11/21 7:17:00 CDT, Stop date: 05/11/21 7:17:00 CDT Acetaminoph 2021-0 No 1 tab, David katarzyna en 325 MG / 05-11 Route: PO, l Hydrocodone 12:17: Drug Form: [place] Bitartrate 00 TAB, 5 MG Oral Dosing Tablet Weight 139.409, kg, ONCE, STAT, Start date: 05/11/21 7:17:00 CDT, Stop date: 05/11/21 7:17:00 CDT Acetaminoph 2021-0 No 1,000 mg, M emoria en 05-11 Route: PO, l 07:46: ONCE, [place] Dosing Weight 139.409, kg, Start date: 05/11/21 [...] 00:00: eded} e 300-30 00 MG levoFLOXaci 2020-0 Yes TAKE 1 Univ ers n 750 mg 8-02 TABLET BY ity of tablet 00:00: MOUTH 00 EVERY DAY Medical FOR 10 Branch DAYS levoFLOXaci 2020-0 Yes TAKE 1 Univ ers n 750 mg 8-02 TABLET BY ity of tablet 00:00: MOUTH [place] 00 EVERY DAY Medical FOR 10 Branch DAYS CIPRODEX 2020-0 Yes INSTILL 4 Univ ers 0.3-0.1 % 7-20 DROPS IN ity of otic drops 00:00: LEFT EAR [place] as 00 TWICE A Medical DAY FOR 10 Branch DAYS CIPRODEX 2020-0 Yes INSTILL 4 Univ ers 0.3-0.1 % 7-20 DROPS IN ity of otic drops 00:00: LEFT EAR [place] as 00 TWICE A Medical DAY FOR 10 Branch DAYS ofloxacin 2020-0 Yes INSTILL 10 Un janette 0.3 % [...] BY ity of tablet 00:00: MOUTH AT [place] 00 ONSET OF Medical MIGRAINE. Branch MAY [...] tablet HOURS FOR Branch 10 DAYS amoxicillin 2021-0 Yes TAKE 1 Univ ers -clavulanat 5-24 TABLET BY ity of e 875-125 00:00: MOUTH [place] mg per 00 EVERY 12 Medical tablet HOURS FOR Branch 10 DAYS Kenalog Kenalog 2019- No 40mg Common (Triamcinol (Triamcinol 0-12 S pirit one) one) 00:00: - [facility] 00 [facility] Kenalog Kenalog 2019- No 40mg Common (Triamcinol (Triamcinol 0-12 S pirit one) one) 00:00: - [facility] 00 [facility] Kenalog Kenalog 2019- No 40mg Common (Triamcinol (Triamcinol 0-12 S pirit one) one) 00:00[facility] Common (Triamcinol (Triamcinol 0-12 S pirit one) one) 00:00: [facility] 40mg Common (Triamcinol (Triamcinol 0-12 S pirit one) one) 00:00: - [facility] 00 [facility] Amoxicillin Amoxicillin 2019-08 2020- No 1{table BID Amoxicilli -Pot -Pot 0-12 10-22 t} n-Pot Clavulanate Clavulanate 00:00: 00:00 Clavulanat 875-125 MG 875-125 MG 00 :00 e 875-125 MG Promethazin Promethazin 2020-0 2020- No Norah 1 tablet Common e HCl e HCl 4-28 05-03 [place] as needed Spirit 00:00: 00:00 for n/v - [facility] 00 :00 [facility] Bupivicaine Bupivicaine 2020-0 No 4mL Common [place] K[place] 4-06 Spirit 00:00: - [facility] 00 [facility] Kenalog Kenalog 2019-0 No 40mg Common (Triamcinol (Triamcinol 4-06 S pirit one) one) 00:00: - [facility] 00 [facility] Bupivicaine Bupivicaine 2020-0 No 4mL Common [place] 4-06 Spirit 00:00: - [facility] 00 [facility] Kenalog Kenalog 2019-0 No 40mg Common (Triamcinol (Triamcinol 4-06 S pirit one) one) 00:00: - [facility] 00 [facility] Bupivicaine Bupivicaine 2020-0 No 4mL Common [place] 4-06 Spirit 00:00: - [facility] 00 [facility] Kenalog Kenalog 2020-0 No 40mg Common (Triamcinol (Triamcinol 4-06 S pirit one) one) 00:00: - [facility] Bupivicaine Bupivicaine 2020-0 No 4mL Common [place] 4-06 Spirit 00:00: - [facility] 00 [facility] Kenalog Kenalog 2020-0 No 40mg Common (Triamcinol (Triamcinol 4-06 S pirit one) one) 00:00: - [facility] 00 [facility] Bupivicaine Bupivicaine 2020-0 No 4mL Common [place] 4-06 Spirit 00:00: - [facility] Kenalog Kenalog 2020-0 No 40mg Common (Triamcinol (Triamcinol 4-06 S pirit one) one) 00:00: - [facility] 00 [facility] ondansetron 2020-0 Yes [id number] 4mg Take 1 Univers (ZOFRAN 3-11 tablet by ity of ODT) 4 mg 00:00: mouth [place] disintegrat 00 every 8 Medic al ing tablet (eight) Branch hours as needed for Nausea and Vomiting (N/V). benzonatate 2020-0 Yes [id number] 200mg Take 1 Univers 200 mg 3-11 capsule by ity of capsule 00:00: mouth 3 [place] 00 (three) Medical times Branch daily as needed for Cough for up to 20 doses. ibuprofen 2020-0 Yes [id number] 600mg Take 1 U nivers 600 mg 3-11 tablet by ity of tablet 00:00: mouth [place] 00 every 6 Medical (six) Branch hours as needed for Pain (scale 4-6). ondansetron 2020-0 Yes [id number] 4mg Take 1 Univers (ZOFRAN 3-11 tablet by ity of ODT) 4 mg 00:00: mouth [place] disintegrat 00 every 8 Medic al ing tablet (eight) Branch hours as needed for Nausea and Vomiting (N/V). benzonatate 2020-0 Yes [id number] 200mg Take 1 [facility] 200 mg 3-11 capsule by ity of capsule 00:00: mouth 3 [place] 00 (three) Medical times Branch daily as needed for Cough for up to 20 doses. ibuprofen Yes [id number] 600mg Take 1 U nivers 600 mg [...] Pain Score 4-6, Start date: 07/09/18 16:24:00 [employer] CONSULTANT Oxycodone 2017-08 No 5 mg, Memoria Hydrochlori 09-08 Route: PO, l de 5 MG 22:24: Drug form: Herm faina Oral Tablet 00 TAB, ONCE, Dosing Weight 139.409, kg, PRN Pain Score 4-6, Start date: 07/09/18 16:24:00 [employer] CONSULTANT Promethazin 2017-08 No Notes: Do M emoria [...] Memori a 09-08 final l 21:26: concentrat [place] 00 ion 5 mg/mL Acetaminoph 2017-08 No [...] PRN Elevated BP, Start date: 07/09/18 15:26:00 [employer] CONSULTANT, Duration: 5 doses or times, Stop date: [...] Memoria 09-08 (Same as: l 21:26: Sublimaze) [place] 00 Preservati ve free. Hydralazine 2017-08 No Notes: David katarzyna 09-08 (Same as: l 21:26: Apresoline ) Push over 5 minutes Labetalol 2017-08 No 10 mg, 2 David katarzyna 09-08 mL, Route: l 21:26: IVP, Drug form: INJ, Q5Min, Dosing Weight 139.409, kg, PRN Elevated BP, Start date: 07/09/18 15:26:00 [employer]MENT CONSULTANT, Duration: 5 doses or times, Stop date: [...] 21:19: INJ, ONCE, Stop date: 07/09/18 15:19:00 [employer] CONSULTANT ondansetron 2017-08 No Route: IV, Memoria (ANES) 09-08 Drug form: l 21:19: INJ, ONCE, Stop date: 07/09/18 15:19:00 [employer]MENT CONSULTANT ceFAZolin 2017-08 No Route: IV, Me moria (ANES) 09-08 Drug form: l 20:43: INJ, ONCE, Stop date: 07/09/18 14:43:00 [employer]MENT CONSULTANT lidocaine 2017-08 No Route: IV, Me moria (ANES) 09-08 Drug form: l 20:43: INJ, ONCE, Stop date: 07/09/18 14:43:00 [employer] DE[employer]MENT CONSULTANT propofol 2017-08 No Route: IV, Mem oria (ANES) 09-08 Drug form: l 20:43: INJ, ONCE, Stop date: 07/09/18 14:43:00 [employer] DE[employer]MENT CONSULTANT fentaNYL 2017-08 No Route: IV, Mem oria (ANES) 09-08 Drug form: l 20:43: INJ, ONCE, Stop date: 07/09/18 14:43:00 [employer] DEPL[employer]MENT CONSULTANT ceFAZolin 2017-08 No Route: IV, Me moria (ANES) 09-08 Drug form: l 20:43: INJ, ONCE, Stop date: 07/09/18 14:43:00 [employer] DEPL[employer]MENT CONSULTANT lidocaine 2017-08 No Route: IV, Me moria (ANES) 09-08 Drug form: l 20:43: INJ, ONCE, Stop date: 07/09/18 14:43:00 [employer] DEPL[employer]MENT CONSULTANT propofol 2017-08 No Route: IV, Mem oria (ANES) 09-08 Drug form: l 20:43: INJ, ONCE, Stop date: 07/09/18 14:43:00 [employer] DEPL[employer]MENT CONSULTANT fentaNYL 2017-08 No Route: IV, Mem oria (ANES) 09-08 Drug form: l 20:43: INJ, ONCE, Stop date: 07/09/18 14:43:00 [employer]MENT CONSULTANT metoclopram 2017-08 No Route: IV, Memoria debbie (ANES) 09-08 Drug form: l 20:38: INJ, ONCE, Stop date: 07/09/18 14:38:00 [employer]MENT CONSULTANT famotidine 2017-08 No Route: IV, M emoria (ANES) 09-08 Drug form: l 20:38: INJ, ONCE, Stop date: 07/09/18 14:38:00 [employer]MENT CONSULTANT dexamethaso 2017-08 No Route: IV, Memoria ne (ANES) 09-08 Drug form: l 20:38: INJ, ONCE, [place] 00 Stop date: 07/09/18 14:38:00 [employer]MENT CONSULTANT midazolam 2017-08 No Route: IV, Me moria (ANES) 09-08 Drug form: l 20:38: SOLN, [place] ONCE, Stop date: 07/09/18 14:38:00 [employer] DEPL[employer]MENT CONSULTANT metoclopram 2017-08 No Route: IV, Memoria debbie (ANES) 09-08 Drug form: l 20:38: INJ, ONCE, [place] 00 Stop date: 07/09/18 14:38:00 [employer]MENT CONSULTANT famotidine 2017-08 No Route: IV, M emoria (ANES) 09-08 Drug form: l 20:38: INJ, ONCE, Stop date: 07/09/18 14:38:00 LE[employer] DEPL[employer]MENT CONSULTANT dexamethaso 2017-08 No Route: IV, Memoria ne (ANES) 09-08 Drug form: l 20:38: INJ, ONCE, Stop date: 07/09/18 14:38:00 [employer] DEPL[employer]MENT CONSULTANT midazolam 2017-08 No Route: IV, Me moria (ANES) 09-08 Drug form: l 20:38: SOLN, [place] ONCE, Stop date: 07/09/18 14:38:00 [employer] DEPL[employer]MENT CONSULTANT Lactated 2017-08 No Route: IV, Mem oria [place] 09-08 Total l Injection 19:45: Volume: Kelly nn IV (ANES) 00 1,000, 1000 mL Start date: 07/09/18 13:45:00 [employer] DE[employer]MENT CONSULTANT, Stop date: 07/09/18 14:45:00 LE[employer] DEPL[employer]MENT CONSULTANT Lactated 2017-08 No Route: IV, Mem oria [place] 09-08 Total l Injection 19:45: Volume: Kelly nn IV (ANES) 00 1,000, 1000 mL Start date: 07/09/18 13:45:00 [employer] DEPL[employer]MENT CONSULTANT, Stop date: 07/09/18 14:45:00 [employer] DEPL[employer]MENT CONSULTANT Famotidine 2017-08 No Notes: Memor ia 40 MG Oral 09-08 (Same as: l Tablet 19:37: Pepcid) [place] [Pepcid] 00 Famotidine 2017-08 No Notes: Memor ia 40 MG Oral 09-08 (Same as: l Tablet 19:37: Pepcid) [place] [Pepcid] 00 Celebrex 2017-08 No 200 mg, Memori a 09-08 Route: PO, l 19:00: Drug form: [place] 00 MARITZA CALIXTO, Dosing Weight 140.909, kg, Start date: 07/09/18 13:00:00 [employer] CONSULTANT, Duration: 30 day, Stop date: 08/08/18 12:59:00 [employer] DEPL[employer]MENT CONSULTANT Lidocaine 2017-08 No Notes: Memori a Hydrochlori [...] Weight 140.909, kg, Start date: 07/09/18 13:00:00 [employer]MENT CONSULTANT, Duration: 30 day, Stop date: 08/08/18 12:59:00 [employer] DEPL[employer]MENT CONSULTANT Lidocaine 2017-08 No Notes: Memori a Hydrochlori 09-08 Preservati l de 10 MG/ML 19:00: ve free. He rmann Injectable 00 (Same as: Solution Xylocaine MPF) Famotidine 2017-08 No Notes: Memor ia 09-08 (Same as: l 19:00: Pepcid) [place] 00 Can be dilute in 5-10cc NS IVP: Slow IV push over at least 2 minutes. Zofran 2017-08 No 4 mg, Memoria 09-08 Route: l 18:53: IVP, Drug [place] 00 form: INJ, ONCE, Dosing Weight 139.409, kg, Priority: STAT, Start date: 07/09/18 12:53:00 [employer]MENT CONSULTANT, Stop date: 07/09/18 12:53:00 [employer]MENT CONSULTANT Zofran 2017-08 No 4 mg, Memoria 09-08 Route: l 18:53: IVP, Drug [place] 00 form: INJ, ONCE, Dosing Weight 139.409, kg, Priority: STAT, Start date: 07/09/18 12:53:00 [employer]MENT CONSULTANT, Stop date: 07/09/18 12:53:00 [employer] DEPL[employer]MENT CONSULTANT Tylenol 2017-08 No 1,000 mg, Memor ia 09-08 Route: PO, l 18:20: ONCE, [place] Dosing Weight 140.909, kg, Priority: STAT, Start date: 07/09/18 12:20:00 [employer] DE[employer]MENT CONSULTANT, Stop date: 07/09/18 12:20:00 [employer] DEPL[employer]MENT CONSULTANT Tylenol 2017-08 No 1,000 mg, Memor ia 09-08 Route: PO, l 18:20: ONCE, [place] Dosing Weight 140.909, kg, Priority: STAT, Start date: 07/09/18 12:20:00 [employer] DEPL[employer]MENT CONSULTANT, Stop date: 07/09/18 12:20:00 [employer] DEPL[employer]MENT CONSULTANT Insulin 2017-08 No Notes: Memoria Lispro 09-08 (Same as: l 18:18: Humalog ) [place] 00 Roll in palms of hands gently; [...] Lactate date: 0.028 07/09/18 MEQ/ML 12:18:00 Injectable [employer], Solution Duration: 30 day, Stop date: 08/08/18 12:17:00 [employer]ANT, 2.75, m2 Insulin 2017-08 No Notes: [facility] Lispro 09-08 (Same as: l 18:18: Humalog ) [place] 00 Roll in palms of hands gently; Do not shake `vigorousl y. "Single Patient Use Only " WASTE: F/P - Black; E - Municipal Trash Bin Stable for 28 days at room temperatur e. Expires in days from ____Date Calcium 2017-08 No 1,000 mL, Memor ia Chloride 09-08 Rate: 25 l 0.0014 18:18: ml/hr, [place] MEQ/ML / 00 Infuse Potassium over: 40 Chloride hr, Route: 0.004 IV, Dosing MEQ/ML / Weight Sodium 140.909 Chloride kg, Total 0.103 Volume: MEQ/ML / 1,000, Sodium Start Lactate date: 0.028 07/09/18 MEQ/ML 12:18:00 Injectable [employer], Solution Duration: 30 day, Stop date: 08/08/18 12:17:00 [employer] CONS[employer]ANT, 2.75, m2 ceFAZolin + 2017-08 No Notes: David katarzyna sterile 09-08 (Same As: l water 30 mL 12:00: Ancef, Herm faina Kefzol) MEDICATION WASTE Product Size: 1000 mg Product Wasted: ___ mg Lactated 2017-08 No 1,000 mL, David katarzyna Ringers 09-08 Rate: KVO l Injection 12:00: rate, [place] IV 1,000 mL 00 Route: IV, Dosing Weight 140.909 kg, Total Volume: 1,000, Start date: 07/09/18 6:00:00 [employer]ANT, Duration: 30 day, Stop date: 08/08/18 5:59:00 [employer] CONS[employer]ANT, 2.75, m2 ceFAZolin + 2017-08 No Notes: David katarzyna sterile 09-08 (Same As: l water 30 mL 12:00: Ancef, Herm faina 00 Kefzol) MEDICATION WASTE Product Size: 1000 mg Product Wasted: ___ mg Lactated 2017-08 No 1,000 mL, David katarzyna Ringers 09-08 Rate: KVO l Injection 12:00: rate, [place] IV 1,000 mL 00 Route: IV, Dosing Weight 140.909 kg, Total Volume: 1,000, Start date: 07/09/18 6:00:00 [employer]ANT, Duration: 30 day, Stop date: 08/08/18 5:59:00 [employer]ANT, 2.75, m2 Norvasc 2017-08 Yes See Memoria 09-07 Instructio l 18:43: ns, PO [place] 00 Daily, 0 Refill(s) Norvasc 2017-08 Yes See Memoria 09-07 Instructio l 18:43: ns, PO [place] 00 Daily, 0 Refill(s) Amlodipine 2017-08 Yes See Memoria 09-07 Instructio l 18:42: ns, PO [place] 00 Daily, 0 Refill(s) Amlodipine 2017-08 Yes See Memoria 09-07 Instructio l 18:42: ns, PO [place] 00 Daily, 0 Refill(s) amLODIPine amLODIPine 2017-08 [...] CDT, Stop date: 05/16/18 6:01:00 CDT Dexamethaso 2017-08 No 8 mg, Memor ia ne 0-05 Route: IM, l 11:01: ONCE, Dosing Weight 144.091, kg, Priority: STAT, Start date: 05/16/18 6:01:00 CDT, Stop date: 05/16/18 6:01:00 CDT Zofran ODT 2017-08 No 4 mg, Memori a 0-05 Route: PO, l 11:01: Drug form: [place] TABDIS, ONCE, Dosing Weight 144.091, kg, Priority: STAT, Start date: 05/16/18 6:01:00 CDT, Stop date: 05/16/18 6:01:00 CDT Morphine 2017-08 No 8 mg, Memoria 0-05 Route: IM, l 11:01: ONCE, Dosing Weight 144.091, kg, Priority: STAT, Start date: 05/16/18 6:01:00 CDT, Stop date: 05/16/18 6:01:00 CDT Zofran Zofran Yes Norah 1 tablet Commo n [place] as needed [facility] Losartan Losartan Yes Norah 1 tablet C ommon Potassium-H Potassium-H [place] [facility] Hydrocodone Hydrocodone Yes Norah 1 tablet Common -Acetaminop -Acetaminop [place] as needed [facility] Adderall XR Adderall XR Yes Norah 1 capsule Common [place] in the [facility] Omeprazole Omeprazole Yes Norah 1 capsule Common [place] 30 minutes [facility] before [facility] Dicyclomine Dicyclomine Yes Norah 1 tablet Common HCl HCl [place] [facility] Omeprazole Omeprazole No QD Omeprazole 40 [...] Omeprazole 40 MG 40 MG 40 MG No known No [facility] Zofran 8 MG Zofran 8 MG No [...] Zofran 8 t_as_ne MG eded} Immunizations Ordered Filled Date Status Comments Source Immunization Name Immunization Name influenza virus 2022-05-19 Completed [facility] vaccine, 15:57:00 inactivated Influenza, 2022-05-19 [facility]pleted [facility] injectable, 00:00:00 quadrivalent (afluria, fluzone) Influenza, 2022-05-19 Completed [facility]able, 00:00:00 quadrivalent (afluria, fluzone) Influenza, 2022-05-19 Completed [facility]able, 00:00:00 quadrivalent (afluria, fluzone) Influenza, 2022-05-19 Completed [facility]able, 00:00:00 quadrivalent (afluria, fluzone) Influenza, 2022-05-19 Completed [facility], 00:00:00 quadrivalent (afluria, fluzone) COVID-19 [facility] 2021-05-06 [facility]00 COVID-19 [facility] 2021-05-06 [facility] 00:00:00 (PURPLE-DILUTE) COVID-19 [facility] 2021-05-06 [facility] 00:00:00 (PURPLE-DILUTE) COVID-19 [facility] 2021-05-06 [facility] 00:00:00 (PURPLE-DILUTE) COVID-19 [facility] 2021-05-06 [facility] 00:00:00 (PURPLE-DILUTE) COVID-19 [facility] 2021-05-06 [facility] 00:00:00 (PURPLE-DILUTE) COVID-19 Pfizer 2021-05-06 Completed [facility] 00:00:00 (PURPLE-DILUTE) COVID-19 Pfizer 2021-05-06 [facility] 00:00:00 (PURPLE-DILUTE) COVID-19 Pfizer 2021-04-15 Completed [facility] 00:00:00 COVID-19 Pfizer 2021-04-15 [facility] 00:00:00 (PURPLE-DILUTE) COVID-19 Pfizer 2021-04-15 [facility] 00:00:00 (PURPLE-DILUTE) COVID-19 Pfizer 2021-04-15 [facility] 00:00:00 (PURPLE-DILUTE) COVID-19 Pfizer 2021-04-15 [facility]pleted [facility] 00:00:00 (PURPLE-DILUTE) COVID-19 Pfizer 2021-04-15 [facility]pleted [facility] 00:00:00 (PURPLE-DILUTE) COVID-19 Pfizer 2021-04-15 [facility] 00:00:00 (PURPLE-DILUTE) COVID-19 Pfizer 2021-04-15 [facility] 00:00:00 (PURPLE-DILUTE) Jaci Beatty 2020-05-23 Completed [facility] - (Triamcinolone) (Triamcinolone) 11:35:00 [facility] Jaci Beatty 2020-05-23 Completed [facility] - (Triamcinolone) (Triamcinolone) 11:35:00 [facility] Jaci Beatty 2020-05-23 Completed [facility] - (Triamcinolone) (Triamcinolone) 11:35:00 [facility] Jaci Beatty 2020-05-23 Completed [facility] - (Triamcinolone) (Triamcinolone) 11:35:00 [facility] Jaci Beatty 2020-05-23 Completed [facility] - (Triamcinolone) (Triamcinolone) 11:35:00 [facility] Kenalog Kenalog 2020-05-23 Completed [facility] - (Triamcinolone) (Triamcinolone) 11:35:00 [facility] Kenalog Kenalog 2020-05-23 Completed [facility] - (Triamcinolone) (Triamcinolone) 11:35:00 [facility] Bupivicaine [place] Bupivicaine [place] 2019-11-16 Completed [facility] - 11:23:00 [facility] Bupivicaine [place] Bupivicaine [place] 2019-11-16 Completed [facility] - 11:23:00 [facility] Bupivicaine [place] Bupivicaine [place] 2019-11-16 Completed [facility] - 11::00 [facility] Bupivicaine [place] Bupivicaine [place] 2019-11-16 Completed [facility] - 11:23:00 [facility] Bupivicaine [place] Bupivicaine [place] 2019-11-16 Completed [facility] - 11::00 [facility] Bupivicaine [place] Bupivicaine [place] 2019-11-16 Completed [facility] - 11::00 [facility] Bupivicaine [place] Bupivicaine [place] 2019-11-16 Completed [facility] - 11::00 [facility] Kenalog Kenalog 2019-11-16 Completed [facility] - (Triamcinolone) (Triamcinolone) 11::00 [facility] Kenalog Kenalog 2019-11-16 Completed [facility] - (Triamcinolone) (Triamcinolone) 11:22:00 [facility] Kenalog Kenalog 2019-11-16 Completed [facility] - (Triamcinolone) (Triamcinolone) 11:22:00 [facility] Kenalog Kenalog 2019-11-16 Completed [facility] - (Triamcinolone) (Triamcinolone) 11:22:00 [facility] Kenalog Kenalog 2019-11-16 Completed [facility] - (Triamcinolone) (Triamcinolone) 11:22:00 [facility] Kenalog Kenalog 2019-11-16 Completed [facility] - (Triamcinolone) (Triamcinolone) 11:22:00 [facility] Kenalog Kenalog 2019-11-16 Completed [facility] - (Triamcinolone) (Triamcinolone) 11:22:00 [facility] Fluzone 2018-06-03 [facility]pleted [facility] Quadrivalent 0.5 ML 14:35:00 Intramuscular Suspension COVID-19 Pfizer 12 Unknown Completed [facility] (PURPLE-DILUTE) COVID-19 Pfizer 12 Unknown Completed [facility] (PURPLE-DILUTE) Influenza, Unknown Completed [facility] injectable, quadrivalent (afluria, fluzone) Vital Signs Vital Name Observation Time Observation Value Comments Source Body height 2023-04-23 190.5 cm [facility] 20:33:00 Body weight 2023-04-23 106.595 kg [facility] 20:33:00 BMI 2023-04-23 29.37 kg/m2 [facility] 20:33:00 Systolic blood 2023-04-23 129 mm[Hg] [facility] pressure 19:30:00 Diastolic blood 2023-04-23 88 mm[Hg] [facility] pressure 19:30:00 Heart rate 2023-04-23 92 /min [facility] 19:30:00 Body temperature 2023-04-23 36.28 Chrissie [facility] 19:30:00 Respiratory rate 2023-04-23 18 /min [facility] 19:30:00 Body height 2023-04-23 190.5 cm [facility] 19:30:00 Body weight 2023-04-23 153.588 kg [facility] 19:30:00 BMI 2023-04-23 42.32 kg/m2 [facility] 19:30:00 Oxygen saturation 2023-04-23 98 /min [facility] in Arterial blood 19:30:00 by Pulse oximetry Systolic blood 2023-03-27 178 mm[Hg] [place] of pressure 01:00:00 [facility] Diastolic blood 2023-03-27 111 mm[Hg] [facility] pressure 01:00:00 [facility] Heart rate 2023-03-27 74 /min [facility] 01:00:00 [facility] Body temperature 2023-03-27 36.67 Chrissie [facility] 01:00:00 [facility] Oxygen saturation 2023-03-27 99 /min [facility] in Arterial blood 01:00:00 [facility] Respiratory rate 2023-03-26 18 /min [facility] 21:22:00 [facility] Body height 2023-03-26 190.5 cm [facility] 21:22:00 [facility] Body weight 2023-03-26 150.141 kg [facility] 21:22:00 [facility] BMI 2023-03-26 41.37 kg/m2 [facility] 21:22:00 [facility] Body height 2023-03-13 190.5 cm [facility] 18:23:00 Body weight 2023-03-13 158 [facility] 18:23:00 BMI 2023-03-13 43.54 kg/m2 [facility] 18:23:00 HEIGHT 2022-11-14 184.2 cm 14:00:00 WEIGHT 2022-11-14 165.518 kg 14:00:00 HEIGHT 2022-11-14 184.2 cm 14:00:00 WEIGHT 2022-11-14 165.518 kg 14:00:00 Body height 2022-09-28 160 cm [facility] 21:52:00 Body weight 2022-09-28 158.759 kg [facility] 21:52:00 BMI 2022-09-28 62.00 kg/m2 [facility] 21:52:00 Body height 2022-09-20 190.5 cm [facility] 14:46:00 Body weight 2022-09-20 158.759 kg [facility] 14:46:00 BMI 2022-09-20 43.75 kg/m2 [facility] 14:46:00 Body height 2022-07-27 190.5 cm [facility] 14:41:00 Body weight 2022-07-27 158.305 kg [facility] 14:41:00 BMI 2022-07-27 43.62 kg/m2 [facility] 14:41:00 height 2022-06-22 72 [in_i] [facility] - 11:20:00 [facility] weight 2022-06-22 343 [lb_av] [facility] - 11:20:00 [facility] temperature 2022-06-22 96.5 [degF] [facility] - 11:20:00 [facility] bmi 2022-06-22 46.51 kg/m2 [facility] - 11:20:00 [facility] oximetry 2022-06-22 97 % [facility] - 11:20:00 [facility] respiratory rate 2022-06-22 18 /min [facility] - 11:20:00 [facility] blood pressure 2022-06-22 141 mm[Hg] [facility] - systolic 11:20:00 [facility] blood pressure 2022-06-22 74 mm[Hg] [facility] - diastolic 11:20:00 [facility] Systolic blood 2022-05-16 110 mm[Hg] [facility] pressure 20:28:00 Diastolic blood 2022-05-16 72 mm[Hg] [facility] pressure 20:28:00 Heart rate 2022-05-16 60 /min [facility] 20:28:00 Body temperature 2022-05-16 36.11 Chrissie [facility] 20:17:00 Body height 2022-05-16 190.5 cm [facility] 20:17:00 Body weight 2022-05-16 158.305 kg [facility] 20:17:00 BMI 2022-05-16 43.62 kg/m2 [facility] 20:17:00 height 2021-04-06 72 [in_i] [facility] - 14:30:00 [facility] weight 2021-04-06 319 [lb_av] [facility] - 14:30:00 [facility] temperature 2021-04-06 98 [degF] [facility] - 14:30:00 [facility] bmi 2021-04-06 43.26 kg/m2 [facility] - 14:30:00 [facility] blood pressure 2021-04-06 121 mm[Hg] [facility] - systolic 14:30:00 [facility] blood pressure 2021-04-06 76 mm[Hg] [facility] - diastolic 14:30:00 [facility] height 2020-07-12 72 [in_i] [facility] - 16:30:00 [facility] weight 2020-07-12 318.3 [lb_av] [facility] - 16:30:00 [facility] temperature 2020-07-12 97.5 [degF] [facility] - 16:30:00 [facility] bmi 2020-07-12 43.16 kg/m2 [facility] - 16:30:00 [facility] oximetry 2020-07-12 97 % [facility] - 16:30:00 [facility] respiratory rate 2020-07-12 18 /min [facility] - 16:30:00 [facility] blood pressure 2020-07-12 129 mm[Hg] [facility] - systolic 16:30:00 [facility] blood pressure 2020-07-12 64 mm[Hg] [facility] - diastolic 16:30:00 [facility] respiratory rate 2020-05-23 18 /min [facility] - 11:20:00 [facility] blood pressure 2020-05-23 140 mm[Hg] [facility] - systolic 11:20:00 [facility] blood pressure 2020-05-23 74 mm[Hg] [facility] - diastolic 11:20:00 [facility] height 2020-05-23 72 [in_i] [facility] - 11:20:00 [facility] weight 2020-05-23 314.4 [lb_av] [facility] - 11:20:00 [facility] temperature 2020-05-23 97.2 [degF] [facility] - 11:20:00 [facility] bmi 2020-05-23 42.64 kg/m2 [facility] - 11:20:00 [facility] oximetry 2020-05-23 98 % [facility] - 11:20:00 [facility] Systolic blood 2023-01-07 167 mm[Hg] [facility] 21:28:57 Hospital Diastolic blood 2023-01-07 79 mm[Hg] [facility] pressure 21:28:57 Hospital Heart rate 2023-01-07 104 /min [facility] 21:28:57 [facility] Body temperature 2023-01-07 35.67 Chrissie [facility] 21:28:57 Hospital Respiratory rate 2023-01-07 16 /min [facility] 21:28:57 Hospital Oxygen saturation 2023-01-07 96 /min [facility] in Arterial blood 21:28:57 Hospital by Pulse oximetry Body height 2023-01-07 190.5 cm [facility] 03:49:11 Hospital Body weight 2023-01-07 162.751 kg [facility] 03:49:11 Hospital BMI 2023-01-07 44.85 kg/m2 [facility] 03:49:11 [facility] Systolic blood 2022-11-14 149 mm[Hg] [facility] pressure 14:13:00 [facility] Diastolic blood 2022-11-14 93 mm[Hg] [facility] pressure 14:13:00 [facility] Heart rate 2022-11-14 73 /min [facility] 14:13:00 [facility] Body temperature 2022-11-[address] [facility] 14[facility] Body height 2022-11-[address] [facility] 14:00:00 Medical Center Body weight 2022-11-[address] [facility] 14:00:00 [facility] BMI 2022-11-14 48.81 kg/m2 [facility] 14:00:00 [facility] Respitory Rate 2022-05-19 [facility] Herm faina 14:30:00 Respitory Rate 2022-05-19 [facility] Herm faina 14:00:00 Systolic (mm Hg) 2022-05-19 [facility] rmann 14:00:00 Diastolic (mm Hg) 2022-05-19 [facility] ermann 14:00:00 Respitory Rate 2022-05-19 [facility] Herm faina 13:00:00 Systolic (mm Hg) 2022-05-19 [facility] rmann 13:00:00 Diastolic (mm Hg) 2022-05-19 [facility] ermann 13:00:00 Temperature Oral 2022-05-19 98.3 F [facility] rmann (F) 12:36:32 Systolic (mm Hg) 2022-05-19 [facility] rmann 12:00:00 Diastolic (mm Hg) 2022-05-19 [facility] ermann 12:00:00 Temperature Oral 2022-05-19 97.4 F [facility] rmann (F) 08:24:17 Temperature Oral 2022-05-19 98.5 F [facility] rmann (F) 03:59:28 Height 2022-05-17 [facility]5 [facility] 04:[facility]00 Weight 2022[facility]05-17 [facility] 04:38:00 BMI Calculated 2022-05-17 [facility] Herm faina 04:38:00 Heart Rate 2022-05-17 [facility] 04:04:00 Height 2022-05-16 190.5 cm [facility] [...] 10:20:37 Temperature Oral 2021-10-10 98.1 F [facility] (F) 10:19:31 Respitory Rate 2021-10-10 [facility] 05:19:58 Systolic (mm Hg) 2021-10-10 [facility] 05:19:44 Diastolic (mm Hg) 2021-10-10 [facility] 05:19:44 Temperature Oral 2021-10-10 98.7 F [facility] (F) 05:18:56 Respitory Rate 2021-10-10 [...] n 09:21:01 Temperature Oral 2021-10-09 98.4 F [facility] Harpreet rmann (F) 09:20:59 Systolic (mm Hg) [...] 13:47:41 Temperature Oral 2021-10-05 99.2 F [facility] (F) 13:47:17 Heart Rate 2021-10-05 [facility] 09:39:43 Respitory Rate 2021-10-05 [facility]a 09:39:43 Systolic (mm Hg) 2021-10-05 [facility] 09:39:35 Diastolic (mm Hg) 2021-10-05 [facility] H ermann 09:39:35 Temperature Oral 2021-10-05 98.4 F [facility] (F) 09:38:41 Respitory Rate 2021-10-05 [facility] faina 06:44:26 Systolic (mm Hg) 2021-10-05 [facility] 06:44:17 Diastolic (mm Hg) 2021-10-05 [facility] 06:44:17 Temperature Oral 2021-10-05 98.7 F [facility] He rmann (F) 06:42:51 Height 2021-10-03 190.5 [...] ermann 13:50:00 Temperature Oral 2021-05-11 98.5 F [facility] He rmann (F) 13:50:00 Systolic (mm Hg) 2021-05-11 [facility] He rmann 12:22:00 Diastolic (mm Hg) 2021-05-11 [facility] H ermann 12:22:00 Systolic (mm Hg) 2021-05-11 [facility] He rmann 11:21:00 Diastolic (mm Hg) 2021-05-11 [facility] 11:21:00 Respitory Rate 2021-05-11 [facility]a 11:21:00 Respitory Rate 2021-05-11 [facility]a 10:42:00 Respitory Rate 2021-05-11 [facility] faina 09:02:00 Temperature Oral 2021-05-11 98.4 F [facility] rmann (F) 08:30:00 Heart Rate 2021-05-11 [facility] 06:50:00 Heart Rate 2021-05-11 [facility] 06:18:00 Heart Rate 2021-05-11 [facility] Sadi n 00:55:00 Temperature Oral 2021-05-11 98.2 F [facility] rmann (F) 00:55:00 BP Systolic 2018-10-02 155 mm[Hg] Location: [place]; [facility] 15:26:00 Position: Sitting BP Diastolic 2018-10-02 88 mm[Hg] Location: [place]; [facility] 15:26:00 Position: Sitting Height 2018-10-02 75 [in_us] [facility] 15:26:00 Weight 2018-10-02 302 [lb_av] [facility] 15:26:00 Body Mass Index 2018-10-02 37.75 kg/m2 [facility] Calculated 15:26:00 Temperature 2018-10-02 98 [degF] Method: Oral [facility] 15:26:00 Heart Rate 2018-10-02 63 /min Location: [facility] 15:26:00 Apical; BP Systolic 2018-09-25 154 mm[Hg] Location: [place]; [facility] 10:26:00 Position: Sitting BP Diastolic 2018-09-25 98 mm[Hg] Location: [place]; [facility] 10:26:00 Position: Sitting Heart Rate 2018-09-25 70 /min Quality: Normal [facility] 10:26:00 BP Systolic 2018-09-25 169 mm[Hg] Location: [place]; [facility] 10:25:00 Position: Sitting BP Diastolic 2018-09-25 65 mm[Hg] Location: [facility]; [facility] 10:25:00 Position: Sitting Heart Rate 2018-09-25 [...] BP Systolic 2018-06-03 136 mm[Hg] Location: [facility]; [facility] 14:09:00 Position: Sitting BP Diastolic 2018-06-03 75 mm[Hg] Location: [facility]; [facility] 14:09:00 Position: Sitting Height 2018-06-03 75 [...] H ermann 11:50:00 Heart Rate 2018-05-16 [facility] 11:50:00 Respitory Rate 2018-05-16 [facility]a 11:50:00 Temperature Oral 2018-05-16 98.8 F [facility] (F) 10:56:00 Weight 2018-05-16 [facility] 10:56:00 Procedures Procedure Date / Time Performing Clinician Source Performed COMP. METABOLIC PANEL 2023-03-26 22:04:00 Magnolia Montes De Oca [facility] ([id number]) Medical Branch SEDIMENTATION RATE 2023-03-26 22:04:00 Magnolia Montes De Oca [facility] CBC WITH DIFF 2023-03-26 22:04:00 Magnolia Montes De Oca [facility] ASSIGNMENT OF BENEFITS 2023-03-26 21:41:01 Doctor Unassigned, Un [facility] CONSENT/REFUSAL FOR 2023-03-26 20:58:29 Doctor Unassigned, [facility] DIAGNOSIS AND TREATMENT [facility] CBC WITH PLATELET AND 2023-01-07 09:31[facility]00 [facility]FFER[facility] COMPREHENSIVE METABOLIC 2023-01-07 09:31:00 [facility] PANEL ESTIMATED GFR 2023-01-07 09:31:00 [facility] BLOOD CULTURE, AEROBIC & 2023-01-07 05:36:[address] [facility] ANAEROBIC BLOOD CULTURE, AEROBIC & 2023-01-07 05:34:[address] [facility] ANAEROBIC CT HEAD WO CONTRAST 2023-01-07 03:33:37 Karen Mendoza [facility] URINE CULTURE 2023-01-07 01:58:[address] [facility] [place] URINALYSIS SCREEN AND 2023-01-07 01:58:00 Karen Mendoza [facility] MICROSCOPY, WITH REFLEX TO CULTURE ABO AND RH CONFIRMATION BY 2023-01-07 00:55:[address] [facility] [place] PROTOCOL CTA ABD/PEL FOR BLEEDING 2023-01-07 00:48:[address] [facility] [place] CBC WITH PLATELET AND 2023-01-06 23:02:00 Karen Mendoza [facility] DIFFERENTIAL PROTHROMBIN TIME WITH INR 2023-01-06 23:02:[address] [facility] PARTIAL THROMBOPLASTIN 2023-01-06 23:02:00 Karen Mendoza [facility] TIME (PTT) COMPREHENSIVE METABOLIC 2023-01-06 23:02:00 Karen Mendoza [facility] PANEL AMYLASE LEVEL 2023-01-06 23:02:[address] [facility] [place] LIPASE LEVEL 2023-01-06 23:02:[address] [facility] TYPE AND SCREEN 2023-01-06 23:02:00 [place], [facility] ESTIMATED GFR 2023-01-06 23:02:00 [facility] Injection, epidural, of 2022-05-18 17:43:21 David Cedeño blood or clot patch REFERRAL- REQUEST/RESPONSE 2021-03-30 05:01:00 Doctor Unassigned , [facility] Myringotomy 2020-10-10 00:00:00 [facility] jones [U] XRAY KNEE 4 OR MORE 2018-07-24 00:00:00 [facility] VWS RIGHT [id number] Emg/Ncv 2018-06-20 00:00:00 [facility] Sleep Lab - Sleep 2018-06-03 00:00:00 [facility] Study Split Night Ulnar nerve decompression 2017-08-12 00:00:00 N[place] morial [facility] Ulnar nerve decompression 2015-08-12 00:00:00 N[place] morial [facility] Extraction of wisdom tooth Memor ial [place] Appendectomy [facility] History of Cubital tunnel [facility] [...] Cessation Counseling and Screening (12+)] Future Scheduled 2023-05-25 Pneumococcal Vaccine: [facility] Test 00:12:04 Pediatrics (0 to 5 Years) and At-Risk Patients (6 to 64 Years) (1 - PCV) [code = Pneumococcal Vaccine: Pediatrics (0 to 5 Years) and At-Risk Patients (6 to 64 Years) (1 - PCV)] Future Scheduled 2023-05-25 Hepatitis C screening [facility] Test 00:12:04 (procedure) [code = 642567554] Future Scheduled 2023-05-25 COVID-19 VACCINE (3 - [facility] Test 00:12:04 season) [code = COVID-19 VACCINE (3 - season)] Future Scheduled 2023-05-25 INFLUENZA VACCINE (#1) [facility] Test 00:12:04 [code = INFLUENZA VACCINE (#1)] Future Scheduled 2023-05-25 RSV VACCINES > 60 YR (1 [facility] Test 00:12:04 - 1-dose 60+ series) [code = RSV VACCINES > 60 YR (1 - 1-dose 60+ series)] Future Scheduled 2023-04-12 Influenza Vaccine (#1) C [...] Vaccine (#1)] Future Scheduled 2023-04-07 Pneumococcal Vaccine: [facility] Test 01:15:51 Pediatrics (0 to 5 Years) and At-Risk Patients (6 to 64 Years) (1 - PCV) [code = Pneumococcal Vaccine: Pediatrics (0 to 5 Years) and At-Risk Patients (6 to 64 Years) (1 - PCV)] Future Scheduled 2023-04-07 Hepatitis C screening [facility] Test 01:15:51 (procedure) [code = 477227779] Future Scheduled 2023-04-07 COVID-19 VACCINE (3 - [facility] Test 01:15:51 Pfizer series) [code = COVID-19 VACCINE (3 - Pfizer series)] Future Scheduled 2023-04-07 [facility] 01:15:51 [code = INFLUENZA VACCINE (#1)] Future Scheduled 2023-04-07 [facility] 01:15:51 Pediatrics (0 to 5 Years) and At-Risk Patients (6 to 64 Years) (1 - PCV) [code = Pneumococcal Vaccine: Pediatrics (0 to 5 Years) and At-Risk Patients (6 to 64 Years) (1 - PCV)] Future Scheduled 2023-04-07 Hepatitis C screening [facility] Test 01:15:51 (procedure) [code = 434010177] Future Scheduled 2023-04-07 COVID-19 VACCINE (3 - [facility] Test 01:15:51 Pfizer series) [code = COVID-19 VACCINE (3 - Pfizer series)] Future Scheduled 2023-04-07 INFLUENZA VACCINE (#1) [facility] Test 01:15:51 [code = INFLUENZA VACCINE (#1)] Future Scheduled 2023-04-07 Pneumococcal Vaccine: [facility] Test 01:15:51 Pediatrics (0 to 5 Years) and At-Risk Patients (6 to 64 Years) (1 - PCV) [code = Pneumococcal Vaccine: Pediatrics (0 to 5 Years) and At-Risk Patients (6 to 64 Years) (1 - PCV)] Future Scheduled 2023-04-07 Hepatitis C screening [facility] Test 01:15:51 (procedure) [code = 611630319] Future Scheduled 2023-04-07 COVID-19 VACCINE (3 - [facility] Test 01:15:51 Pfizer series) [code = COVID-19 VACCINE (3 - Pfizer series)] Future Scheduled 2023-04-07 INFLUENZA VACCINE (#1) [facility] Test 01:15:51 [code = INFLUENZA VACCINE (#1)] Future Scheduled 2023-03-16 Pneumococcal Vaccine: [facility] Test 12:35:05 Pediatrics (0 to 5 Years) and At-Risk Patients (6 to 64 Years) (1 - PCV) [code = Pneumococcal Vaccine: Pediatrics (0 to 5 Years) and At-Risk Patients (6 to 64 Years) (1 - PCV)] Future Scheduled 2023-03-16 Hepatitis C screening [facility] Test 12:35:05 (procedure) [code = 979512615] Future Scheduled 2023-03-16 COVID-19 VACCINE (3 - [facility] Test 12:35:05 Pfizer series) [code = COVID-19 VACCINE (3 - Pfizer series)] Future Scheduled 2023-03-16 INFLUENZA VACCINE [code [facility] Test 12:35:05 = INFLUENZA VACCINE] Future Scheduled 2023-03-08 COVID-19 VACCINE (3 - [facility] Test 14:34:41 Pfizer series) [code = COVID-19 VACCINE (3 - Pfizer series)] Future Scheduled 2023-03-08 INFLUENZA VACCINE [code [facility] Test 14:34:41 = INFLUENZA VACCINE] Future Scheduled 2023-03-08 Pneumococcal Vaccine: [facility] Test 14:34:41 Pediatrics (0 to 5 Years) and At-Risk Patients (6 to 64 Years) (1 - PCV) [code = Pneumococcal Vaccine: Pediatrics (0 to 5 Years) and At-Risk Patients (6 to 64 Years) (1 - PCV)] Future Scheduled 2023-03-08 Hepatitis C screening [facility] Test 14:34:41 (procedure) [code = 811374762] Future Scheduled 2023-03-04 Pneumococcal Vaccine: [facility] Test 12:22:41 Pediatrics (0 to 5 Years) and At-Risk Patients (6 to 64 Years) (1 - PCV) [code = Pneumococcal Vaccine: Pediatrics (0 to 5 Years) and At-Risk Patients (6 to 64 Years) (1 - PCV)] Future Scheduled 2023-03-04 Hepatitis C screening [facility] Test 12:22:41 (procedure) [code = 963629072] Future Scheduled 2023-03-04 COVID-19 VACCINE (3 - [facility] Test 12:22:41 Pfizer series) [code = COVID-19 VACCINE (3 - Pfizer series)] Future Scheduled 2023-03-04 INFLUENZA VACCINE [code [facility] Test 12:22:41 = INFLUENZA VACCINE] Future Scheduled 2023-02-11 Pneumococcal Vaccine: [facility] Test 11:22:44 Pediatrics (0 to 5 Years) and At-Risk Patients (6 to 64 Years) (1 - PCV) [code = Pneumococcal Vaccine: Pediatrics (0 to 5 Years) and At-Risk Patients (6 to 64 Years) (1 - PCV)] Future Scheduled 2023-02-11 Hepatitis C screening [facility] Test 11:22:44 (procedure) [code = 688080807] Future Scheduled 2023-02-11 COVID-19 VACCINE ([facility] 11:22:44 Pfizer series) [code = COVID-19 VACCINE (3 - Pfizer series)] Future Scheduled 2023-02-11 INFLUENZA VACCINE [code [facility] Test 11:22:44 = INFLUENZA VACCINE] Future Scheduled 2023-01-26 [facility] 16:56:13 Pediatrics (0 to 5 Years) and At-Risk Patients (6 to 64 Years) (1 - PCV) [code = Pneumococcal Vaccine: Pediatrics (0 to 5 Years) and At-Risk Patients (6 to 64 Years) (1 - PCV)] Future Scheduled 2023-01-26 [facility] 16:56:13 (procedure) [code = 606317856] Future Scheduled 2023-01-26 COVID-19 VACCINE (3 - [facility] 16:56:13 Pfizer series) [code = COVID-19 VACCINE (3 - Pfizer series)] Future Scheduled 2023-01-26 INFLUENZA VACCINE [code [facility] Test 16:56:13 = INFLUENZA VACCINE] Future Scheduled 2022-12-12 COVID-19 VACCINE (#1) [facility] 13:32:14 [code = COVID-19 VACCINE (#1)] Future Scheduled 2022-12-12 INFLUENZA VACCINE [code [facility] Test 13:32:14 = INFLUENZA VACCINE] Future Scheduled 2022-12-12 COVID-19 VACCINE (#1) [facility] 13:32:14 [code = COVID-19 VACCINE (#1)] Future Scheduled 2022-12-12 INFLUENZA VACCINE [code [facility] Test 13:32:14 = INFLUENZA VACCINE] Future Scheduled 2022-09-18 COVID-19 VACCINE (#1) [facility] 11:55:25 [code = COVID-19 VACCINE (#1)] Future Scheduled 2022-09-18 INFLUENZA VACCINE [code [facility] Test 11:55:25 = INFLUENZA VACCINE] Future Scheduled 2022-09-18 COVID-19 VACCINE (#1) [facility] 11:55:25 [code = COVID-19 VACCINE (#1)] Future Scheduled 2022-09-18 INFLUENZA VACCINE [code [facility] Test 11:55:25 = INFLUENZA VACCINE] Future Scheduled 2022-09-07 COVID-19 VACCINE (#1) [facility] Test 19:13:43 [code = COVID-19 VACCINE (#1)] Future Scheduled 2022-09-07 INFLUENZA VACCINE [code [facility] Test 19:13:43 = INFLUENZA VACCINE] Future [...] (12+)] Future Scheduled 2022-07-28 COVID-19 VACCINE (#1) [facility] Test 16:56:35 [code = COVID-19 VACCINE (#1)] Future Scheduled 2022-07-28 INFLUENZA VACCINE [code [facility] Test 16:56:35 = INFLUENZA VACCINE] Future Scheduled 2022-07-28 COVID-19 VACCINE (#1) [facility] Test 16:56:35 [code = COVID-19 VACCINE (#1)] Future Scheduled 2022-07-28 INFLUENZA VACCINE [code [facility] Test 16:56:35 = INFLUENZA VACCINE] Future Scheduled 2022-04-13 HEPATITIS B VACCINES (1 [facility] Test 21:38:54 of 3 - 3-dose series) [code = HEPATITIS B VACCINES (1 of 3 - 3-dose series)] Future Scheduled 2022-04-13 COVID-19 VACCINE (#1) [facility] Test 21:38:54 [code = COVID-19 VACCINE (#1)] Future Scheduled 2022-04-13 INFLUENZA VACCINE [code [facility] Test 21:38:54 = INFLUENZA VACCINE] Future Scheduled 2022-04-13 HEPATITIS B VACCINES (1 [facility] Test 21:38:54 of 3 - 3-dose series) [code = HEPATITIS B VACCINES (1 of 3 - 3-dose series)] Future Scheduled 2022-04-13 COVID-19 VACCINE (#1) [facility] Test 21:38:54 [code = COVID-19 VACCINE (#1)] Future Scheduled 2022-04-13 INFLUENZA VACCINE [code [facility] Test 21:38:54 = INFLUENZA VACCINE] Future Scheduled 2022-04-13 HEPATITIS B VACCINES (1 [facility] Test 21:38:54 of 3 - 3-dose series) [code = HEPATITIS B VACCINES (1 of 3 - 3-dose series)] Future Scheduled 2022-04-13 COVID-19 VACCINE (#1) [facility] Test 21:38:54 [code = COVID-19 VACCINE (#1)] Future Scheduled 2022-04-13 INFLUENZA VACCINE [code [facility] Test 21:38:54 = INFLUENZA VACCINE] Future Scheduled 2022-04-13 HEPATITIS B VACCINES (1 [facility] Test 21:38:54 of 3 - 3-dose series) [code = HEPATITIS B VACCINES (1 of 3 - 3-dose series)] Future Scheduled 2022-04-13 COVID-19 VACCINE (#1) [facility] Test 21:38:54 [code = COVID-19 VACCINE (#1)] Future Scheduled 2022-04-13 INFLUENZA VACCINE [code [facility] Test 21:38:54 = INFLUENZA VACCINE] Future Scheduled 2022-04-13 HEPATITIS B VACCINES (1 [facility] Test 21:38:54 of 3 - 3-dose series) [code = HEPATITIS B VACCINES (1 of 3 - 3-dose series)] Future Scheduled 2022-04-13 COVID-19 VACCINE (#1) [facility] Test 21:38:54 [code = COVID-19 VACCINE (#1)] Future Scheduled 2022-04-13 INFLUENZA VACCINE [code [facility] Test 21:38:54 = INFLUENZA VACCINE] Future Scheduled 2022-04-13 HEPATITIS B VACCINES (1 [facility] Test 21:38:54 of 3 - 3-dose series) [code = HEPATITIS B VACCINES (1 of 3 - 3-dose series)] Future Scheduled 2022-04-13 COVID-19 VACCINE (#1) [facility] Test 21:38:54 [code = COVID-19 VACCINE (#1)] Future Scheduled 2022-04-13 INFLUENZA VACCINE [code [facility] Test 21:38:54 = INFLUENZA VACCINE] Future [...] [facility] Test 00:00:00 [code = 64095576] [facility] Future Scheduled 2015 Lipid panel (procedure) [facility] Test 00:00:00 [code = 22753611] Medical Ce nter Future Scheduled 2015 Lipid panel (procedure) [facility] Test 00:00:00 [code = 38552476] Medical Ce nter Future Scheduled 2015 Lipid panel (procedure) [facility] Test 00:00:00 [code = 99619347] Medical Ce nter Future Scheduled 2015 Lipid panel (procedure) [facility] Test 00:00:00 [code = 43828393] Medical Ce nter Future Scheduled 2015 Lipid panel (procedure) [facility] Test 00:00:00 [code = 98906292] Medical Ce nter Future Scheduled 2015 Lipid panel (procedure) [facility] Test 00:00:00 [code = 87825623] Medical Ce nter Future Scheduled 2015 Lipid panel (procedure) [facility] Test 00:00:00 [code = 24463512] Medical Ce nter Future Scheduled 2015 Lipid panel (procedure) [facility] Test 00:00:00 [code = 16876547] Medical Ce nter Future Scheduled 2015 Lipid panel (procedure) [facility] Test 00:00:00 [code = 51680093] Medical Ce nter Future Scheduled 2015 Lipid panel (procedure) [facility] Test 00:00:00 [code = 47550903] Medical Ce nter Future Scheduled 1999 DTAP/TDAP/TD [...] [facility] [code = 300116566] Future Scheduled [address] [facility]procedure) [code = 004481408] Future Scheduled [address] Human [facility] 00:00:00 [facility]procedure) [code = 100337532] Future Scheduled [address] Human [facility] 00:00:00 [facility]procedure) [code = 957909084] Future Scheduled [address] [facility] 00:00:00 [facility]procedure) [code = 526315242] Future Scheduled [address] Human [facility] 00:00:00 [facility]procedure) [code = 852012328] Future Scheduled [address] Human [facility] 00:00:00 virus screening [facility] (procedure) [code = 989558774] Future Scheduled COVID-19 VACCINE (1) [facility] Test [code = COVID-19 VACCINE (1)] Future Scheduled Hepatitis C screening [facility] Test (procedure) [code = 612841538] Future Scheduled INFLUENZA VACCINE [code [facility] Test = INFLUENZA VACCINE] Encounters Start End Encounter Admission Attending Care Care Encounter Source Date/Time Date/Time Type Type Clinicians Facility Department ID 2023-03-27 Outpatient Vazquez, STKATHERINELC STLC [id number] Common 08:24:00 [facility] [address] [facility] 2023-02-[address] [facility] [id number] [place] 08:16:07 [id number] [facility] 2023-02-[address] [facility] [id number] [place] 07:32:15 [id number] [facility] 2023-02-[address] [facility] [id number] [place] 16:00:55 [id number] [facility] 2023-01-[address] [facility] [id number] [place] 10:29:46 [id number] [facility] 2022-12-21 Outpatient Vazquez, STKATHERINELC STLC [id number] Common 09:37:00 [facility] [address] [facility] 2022-09-[address] [facility] [id number] [place] 15:49:39 [id number] [facility] 2022-09-25 Outpatient Vazquez, STLMLC STLC [id number] Common 10:35:01 [facility] [address] [facility] 2022-09-[address] [facility] [id number] [place] 09:01:19 [id number] [facility] 2022-09-[address] [facility] [id number] [place] 13:05:14 [id number] [facility] 2022-09-[address] [facility] [id number] [place] 09:48:26 [id number] [facility] 2022-09-[address] [facility] [id number] [place] 10:22:47 [id number] [facility] 2022-08-[address] [facility] [id number] [place] 08:54:00 [id number] [facility] 2022-07-[address] [facility] [id number] [place] 09:03:26 [id number] [facility] 2022-07-[address] [facility] [id number] [place] 09:39:00 [id number] [facility] 2022-06-22 Outpatient Vazquez, STLMLC STLC [id number] Common 11:03:01 [facility] [address] [facility] 2022-06-[address] [facility] [id number] [place] 15:53:00 [id number] [facility] 2022-06-20 Outpatient Vazquez, STLMLC STLMLC [id number] Common 09:33:01 John [facility] 2022-06-[address] [facility] [id number] [place] 15:00:31 [id number] [facility] 2022-06-[address] [facility] [id number] [place] 09:35:34 [id number] [facility] 2022-05-[address] [facility] [id number] [place] 13:39:31 [id number] [facility] 2021-10-25 Outpatient MIGUEL ANGEL, [facility] ANAY 7506 [facility] 11:23:00 WICHITA 2021-09-28 Outpatient DAY, NOAH [facility] [id number] [place] 16:10:44 [facility] 2021-09-06 Outpatient Vazquez, STLMLC STLMLC [id number] Common 12:12:10 John [address] [facility] 2021-09-06 Outpatient Vazquez, STLMLC STLMLC [id number] Common 12:10:54 John [address] [facility] 2021-09-06 Outpatient Vazquez, STLMLC STLMLC [id number] Common 12:09:52 John [address] [facility] 2021-09-06 Outpatient Vazquez, STLMLC STLMLC [id number] Common 11:54:05 John [address] [facility] 2021-09-06 Outpatient Vazquez, STLMLC STLMLC [id number] Common 11:06:57 John [address] [facility] 2021-09-06 Outpatient Vazquez, STLMLC STLMLC [id number] Common 11:06:47 John [address] [facility] 2021-04-18 Outpatient PATKI, [facility] [id number] [place] 14:45:53 JUNIOR [facility] 2023-10-22 2023-10-22 Outpatient YUKSEL, [facility] [id number] [place] 15:00:00 15:00:00 [facility] 2023-10-22 2023-10-22 Outpatient SLEDGEthan, [facility] [id number] [place] 14:30:00 14:30:00 DAVID Heal 2023-08-13 2023-08-13 Outpatient JOHAN HONEYCUTT [facility] [id number] [place] 16:00:00 16:00:00 Health 2023-05-29 2023-05-29 Outpatient DAY, NOAH [facility] [id number] [place] 15:45:00 15:45:00 Health 2023-04-23 2023-04-23 Office Alyse, UTP 6400 1.2.840.114 [id number] [place] 15:15:00 15:48:[address] [id number] Health 9.2.7.2.686 [id number] 5 2023-04-23 2023-04-23 Office Johan Honeycutt UTP 6410 1.2.840.114 [id number] [place] 14:00:00 15:16:[address] 350.1.13.58 Health 9.2.7.2.686 [id number] 2023-04-08 2023-04-08 Outpatient SFA SFA [id number] [place] 14:50:30 14:50:30 0828 [place] 2023-03-26 2023-03-26 Emergency X MONTES DE OCA, RUST ERT [id number] Univers 16:24:00 20:05:00 MAGNOLIA busch of [facility] 2023-03-26 2023-03-26 Emergency Montes De Oca, RUST 1.2.840.114 [id number] Univers 16:24:00 20:05:00 Magnoliaethan YANG 350.1.13.10 i [facility] 4.2.7.2.686 [facility] [id number] [address] 2023-03-13 2023-03-13 Office Alyse, UTP 6400 1.2.840.114 [id number] [place] 13:00:00 13:52:[address] 350.1.13.58 Health 9.2.7.2.686 [id number] 5 2023-03-07 2023-03-07 Outpatient ALYSE, [facility] [id number] [place] 14:15:00 14:15:00 [facility] 2023-02-14 2023-02-19 Inpatient ALYSE, [facility] [address] [facility] 09:24:00 17:51:00 [facility] 2023-02-14 2023-02-14 Outpatient ALYSE, [facility] [id number] [place] 12:00:00 12:00:00 [facility] 2023-01-10 2023-01-10 Outpatient CORCORAN [facility] [id number] [place] 13:00:00 13:00:00 Karthik WILHELM 2023-01-06 2023-01-07 Emergency Heidy Mendozaelmer K. 1.2.840.1 [id number] Methodi 17:24:00 18:25:00 Julian Sexton [address]293.1.[address] [facility] 3.430.2.7 Hospita .3.264645 l .8 2023-01-06 2023-01-07 Emergency Jeet Mendozaso K. 1.2.840.1 [id number] Methodi 17:24:00 18:25:00 Julian Sexton 68835.1.[address] [facility], [place] 3.430.2.7 Hospita .3.007838 l .8 2023-01-06 2023-01-06 Travel 1.2.840.1 1.2.137.379 [id number] Methodi 00:00:00 00:00:[address] 3.430.2.7 0.2.7.3.698 Ho spita .3.938944 084.8 l .8 2023-01-06 2023-01-06 Travel 1.2.840.1 1.2.269.982 0614 [id number] Methodi 00:00:00 00:00:[address] 3.430.2.7 0.2.7.3.698 spita .3.061518 084.8 l .8 2022-11-14 2022-11-14 Office CAROLYN Jacob [facility] [id number] 14:30:00 15:33:[address] [facility] 2022-11-14 2022-11-14 Office Cecil [facility] [id number] 14:30:00 15:33:[address] [facility] 2022-09-28 2022-09-28 Office Alyse [facility] 6400 1.2.840.114 [id number] [place] 15:00:00 16:43:[address] 350.1.13.58 Health 9.2.7.2.686 [id number] 5 2022-09-26 2022-09-26 Outpatient ALYSE, [facility] [id number] [place] 13:15:00 13:15:00 [facility] 2022-09-20 2022-09-21 [facility] [id number] Memoria 19:41:00 05:59:00 Services Outpatient 03 l Tree Cedeño 2022-09-20 2022-09-20 Office EUNICE CULLEN 6400 1.2.840.114 [id number] [place] 08:45:00 08:45:[address] 350.1.13.58 Health 9.2.7.2.686 [id number] 5 2022-08-16 2022-08-16 Outpatient CAITLIN, [facility] [id number] [place] 14:30:00 14:30:00 [employer] 2022-08-01 2022-08-01 Outpatient CAITLIN, [facility] [id number] [place] 11:00:00 11:00:00 [facility] 2022-07-27 2022-07-27 Office EUNICE Cullen 6400 1.2.840.114 [id number] [place] 08:30:00 09:48:[address] 350.1.13.58 Health 9.2.7.2.686 [id number] 5 2022-07-25 2022-07-25 (TEL) STLMLC STLMLC [id number] Co mmon 00:00:00 00:00:00 [facility] 2022-06-22 2022-06-22 (TEL) STLMLC STLMLC [id number] Co mmon 00:00:00 00:00:00 [facility] 2022-06-22 2022-06-22 OFFICE STLMLC STLMLC [id number] Co mmon 00:00:00 00:00:00 VISIT [facility] 4 [facility] 2022-06-20 2022-06-20 Outpatient DAY, NOAH [facility] [id number] [place] 14:00:00 14:00:00 Health 2022-06-13 2022-06-13 Outpatient DAY, NOAH [facility] [id number] [place] 13:15:00 13:15:00 [facility] 2022-06-06 2022-06-06 (TEL) STLMLC STLMLC [id number] Co mmon 00:00:00 00:00:00 [facility] 2022-06-06 2022-06-06 (TEL) STLMLC STLMLC [id number] Co mmon 00:00:00 00:00:00 [facility] 2022-05-16 2022-05-19 [id number] [facility] 16:40:[address] 2022-05-17 2022-05-19 Outpatient E DAY, NOAH [facility] 750 [address] [facility] 10:13:00 11:40:00 2022-05-16 2022-05-16 Office DAY, NOAH [facility] 6400 1.2.840.114 1 [id number] [place] 15:45:00 15:45:00 Visit CHRISTINE JOYCE 350.1.13.58 Health 9.2.7.2.686 [id number] 0 2022-05-12 2022-05-13 Emergency nullFlavo [facility] [id number] Memoria 09:35:00 02:21:00 [facility] 74 l [facility] 2022-05-12 2022-05-12 Emergency E ROBERTS, [facility] [address] [facility] 03:16:00 21:21:00 SONIA 2022-03-21 2022-03-21 Outpatient DAY, NOAH [facility] [id number] [place] 15:00:00 15:00:00 Health 2022-03-14 2022-03-14 Telephone Patki, UTP 6400 1.2.840.114 [id number] [place] 00:00:00 00:00:[address] 350.1.13.58 Health 9.2.7.2.686 [id number] 3 2022-03-14 2022-03-14 Telephone Day, Noah UTP 6400 1.2.840.114 [id number] [place] 00:00:00 00:00:[address] 350.1.13.58 Health 9.2.7.2.686 [id number] 0 2022-03-14 2022-03-14 Telephone Day, Noah UTP 6400 1.2.840.114 [id number] [place] 00:00:00 00:00:[address] [place] [address] 350.1.13.58 Health 9.2.7.2.686 [id number] 0 2022-03-13 2022-03-13 Telephone Day, Noah UTP 6400 1.2.840.114 [id number] [place] 00:00:00 00:00:[address] 350.1.13.58 Health 9.2.7.2.686 [id number] 0 2022-01-01 2022-01-01 Telephone Day, Noah UTP 6400 1.2.840.114 [id number] [place] 00:00:00 00:00:[address] 350.1.13.58 Health 9.2.7.2.686 [id number] 0 2021-12-28 2021-12-28 Telephone Day, Noah UTP 6400 1.2.840.114 [id number] [place] 00:00:00 00:00:[address] [place] [address] 350.1.13.58 Health 9.2.7.2.686 [id number] 0 2021-12-06 2021-12-06 Telephone Day, Noah UTP 6400 1.2.840.114 [id number] [place] 00:00:00 00:00:[address] [place] [address] 350.1.13.58 Health 9.2.7.2.686 [id number] 0 2021-11-27 2021-11-27 Telephone Day, Noah UTP 6400 1.2.840.114 [id number] [place] 00:00:00 00:00:[address] 350.1.13.58 Health 9.2.7.2.686 [id number] 0 2021-11-01 2021-11-01 Telephone Day, Noah UTP 6400 1.2.840.114 [id number] [place] 00:00:00 00:00:[address] 350.1.13.58 Health 9.2.7.2.686 [id number] 0 2021-10-30 2021-10-30 Telephone Rae Naranjo UTP 1.2.840 .114 [id number] [place] 00:00:00 00:00:00 Rae NaranjoDELFINO 350.1.13.58 Health MEDICAL 9.2.7.2.686 [facility] [id number] 1 2021-10-27 2021-10-27 Telephone Day, Noah UTP 6410 1.2.840.114 [id number] [place] 00:00:00 00:00:[address] [place] [address] 350.1.13.58 Health 9.2.7.2.686 [id number] 8 2021-10-25 2021-10-26 Outpt Diag nullFlavo [facility] [id number] [facility] 18:11:00 04:59:00 Services r [place] [address] cooper Cedeño [place] 2021-10-24 2021-10-24 Telephone Layne Sánchez UTP 6400 1.2.840.1 14 [id number] [place] 00:00:00 00:00:00 Gonzalo, Layne [address] [facility] 350.1.13.58 Health 9.2.7.2.686 [id number] 3 2021-10-24 2021-10-24 Telephone Day, Noah DAWSON 6400 1.2.840.114 [id number] [place] 00:00:00 00:00:[address] [place] [address] 350.1.13.58 Health 9.2.7.2.686 [id number] 0 2021-10-20 2021-10-20 Office Miguel Angel, EUNICE 1.2.840.114 [id number] [place] 13:30:00 14:18:52 Visit Geronimo MENCHACA 350.1.13.[address] [facility] MEDICAL 9.2.7.2.686 [facility] [id number] 1 2021-10-18 2021-10-19 Outpt Diag nullFlavo [facility] [id number] [facility] 17:43:00 05:59:00 Services r Outpatient 00 l Imaging Davidson Cedeño 2021-10-18 2021-10-18 Office Day, Noah DAWSON 6400 1.2.840.114 [id number] [place] 10:00:00 10:15:00 [place] [address] [id number] Health 9.2.7.2.686 [id number] 0 2021-10-18 2021-10-18 Telephone Day, Noah DAWSON 6400 1.2.840.114 [id number] [place] 00:00:00 00:00:[address] [id number] Health 9.2.7.2.686 [id number] 0 2021-10-18 2021-10-18 Telephone Day, Noah UTP 6400 1.2.840.114 [id number] [place] 00:00:00 00:00:[address] [place] [address] [id number] Health 9.2.7.2.686 [id number] 2021-10-17 2021-10-17 Telephone Day, Noah UTP 6400 1.2.840.114 [id number] [place] 00:00:00 00:00:[address] [id number] Health 9.2.7.2.686 [id number] 0 2021-10-13 2021-10-13 Telephone Day, Noah UTP 6400 1.2.840.114 [id number] [place] 00:00:00 00:00:[address] [id number] Health 9.2.7.2.686 [id number] 2021-10-08 2021-10-10 Inpatient [facility] [id number] [place] 23:43:00 15:48:[address] 2021-10-08 2021-10-10 Inpatient E DAY, NOAH [facility] [address] [facility] 19:58:00 09:48:00 2021-10-03 2021-10-05 Inpatient [facility] [id number] Memoria 11:15:00 16:21:[address] 2021-10-03 2021-10-05 Inpatient DAY, NOAH [facility] [address] [facility] 05:15:00 10:21:00 2021-10-04 2021-10-04 Telephone Day, Noah UTP 6400 1.2.840.114 [id number] [place] 00:00:00 00:00:[address] [place] [address] [id number] Health 9.2.7.2.686 [id number] 0 2021-09-28 2021-09-28 Telephone Day, Noah UTP 6400 1.2.840.114 [id number] [place] 00:00:00 00:00:[address] [id number] Health 9.2.7.2.686 [id number] 0 2021-09-28 2021-09-28 Telephone Dorothea Delgadillo UTP 6400 1.2.84 0.114 [id number] [place] 00:00:00 00:00:[address] 350.1.13.58 Health 9.2.7.2.686 [id number] 3 2021-09-22 2021-09-22 Telephone Day, Noah UTP 6400 1.2.840.114 [id number] [place] 00:00:00 00:00:[address] 350.1.13.58 Health 9.2.7.2.686 [id number] 0 2021-09-20 2021-09-20 Telephone Noah Osorio UTP 6400 1.2.840.114 [id number] [place] 00:00:00 00:00:[address] 350.1.13.58 Health 9.2.7.2.686 [id number] 7 2021-09-18 2021-09-18 Telephone Amelia Cameron UTP 6400 1.2.840.11 [id number] [place] 00:00:00 00:00:[address] 350.1.13.58 Health 9.2.7.2.686 [id number] 5 2021-09-07 2021-09-07 Office Evelynekenji EUNICE 6400 1.2.840.114 [id number] [place] 13:30:00 14:35:[address] 350.1.13.58 Health 9.2.7.2.686 [id number] 3 2021-09-07 2021-09-07 Telephone Evelynekenji, EUNICE 6400 1.2.840.114 [id number] [place] 00:00:00 00:00:[address] 350.1.13.58 Health 9.2.7.2.686 [id number] 3 2021-09-05 2021-09-05 Telephone Evelynekenji, UTP 6400 1.2.840.114 134 [id number] [place] 00:00:00 00:00:[address] 350.1.13.58 Health 9.2.7.2.686 [id number] 3 2021-09-03 2021-09-03 Telephone Stacy, UTP 6400 1.2.840.114 [id number] [place] 00:00:00 00:00:[address] 350.1.13.58 Health 9.2.7.2.686 [id number] 3 2021-08-02 2021-08-02 Telephone Patkenji, UTP 6400 1.2.840.114 133 [id number] [place] 00:00:00 00:00:[address] 350.1.13.58 Health 9.2.7.2.686 [id number] 3 2021-05-18 2021-05-18 Orders Brii Howard UTP 6400 1.2.840.114 [id number] [place] 00:00:00 00:00:[address] 350.1.13.58 Health 9.2.7.2.686 [id number] 3 2021-05-18 2021-05-18 Orders Stacy, UTP 6400 1.2.840.114 [id number] [place] 00:00:00 00:00:[address] 350.1.13.58 Health 9.2.7.2.686 [id number] 3 2021-05-15 2021-05-15 Telephone Patkenji, UTP 6400 1.2.840.114 127 [id number] [place] 00:00:00 00:00:[address] 350.1.13.58 Health 9.2.7.2.686 [id number] 3 2021-05-11 2021-05-11 [facility] [id number] [facility] 00:42:19 14:08:[address] 2021-05-11 2021-05-11 (TEL) [facility] [id number] Co mmon 00:00:00 00:00:00 [facility] 2021-05-09 2021-05-09 Telephone Patkenji, UTP 6400 1.2.840.114 127 [id number] [place] 00:00:00 00:00:[address] 350.1.13.58 Health 9.2.7.2.686 [id number] 3 2021-05-08 2021-05-08 Telephone Patkenji, UTP 6400 1.2.840.114 127 [id number] [place] 00:00:00 00:00:[address] 350.1.13.58 Health 9.2.7.2.686 [id number] 3 2021-05-08 2021-05-08 Telephone Patkenji, UTP 6400 1.2.840.114 127 [id number] [place] 00:00:00 00:00:[address] 350.1.13.58 Health 9.2.7.2.686 [id number] 3 2021-05-08 2021-05-08 Telephone Patkenji, UTP 6400 1.2.840.114 127 [id number] [place] 00:00:00 00:00:00 Junior JOYCE 350.1.13.58 Health 9.2.7.2.686 [id number] 3 2021-05-03 2021-05-03 Office Patkenji, UTP 6400 1.2.840.114 [id number] [place] 13:38:06 14:42:[address] 350.1.13.58 Health 9.2.7.2.686 [id number] 3 2021-05-03 2021-05-03 Office Patkenji, UTP 6400 1.2.840.114 [id number] [place] 13:38:06 14:42:[address] 350.1.13.58 Health 9.2.7.2.686 [id number] 3 2021-04-18 2021-04-18 Office Patkenji, UTP 6400 1.2.840.114 [id number] [place] 13:09:45 14:44:[address] 350.1.13.58 Health 9.2.7.2.686 [id number] 3 2021-04-18 2021-04-18 Office Patkenji, UTP 6400 1.2.840.114 [id number] [place] 13:09:45 14:44:[address] 350.1.13.58 Health 9.2.7.2.686 [id number] 3 2021-04-06 2021-04-[facility] [id number] Co mmon 00:00:00 00:00:00 VISIT EST Spir it PT LEVEL 3 - [facility] 2021-04-06 2021-04-06 (TEL) STLMLC STLC [id number] Co mmon 00:00:00 00:00:00 [facility] 2021-03-31 2021-03-31 (TEL) STLC STLC [id number] Co mmon 00:00:00 00:00:00 [facility] 2021-03-30 2021-03-30 Orders Doctor AICHA 1.2.840.114 [id number] 00:00:00 00:00:00 Only Unassigned, ABDULKADIR 350.1.13.10 St[facility] 4.2.7.2.686 [id number] 2021-03-30 2021-03-30 Orders Doctor AICHA 1.2.840.114 [id number] [facility] 00:00:00 00:00:00 Only Unassigned, ABDULKADIR 350.1.13.10 ity of [facility] 4.2.7.2.686 Norberto as [id number] [address] 2021-03-21 2021-03-21 Ancillary 1, Gal UNIVERSIT 1.2.840.114 [id number] 14:21:34 15:15:15 Visit Audio Sound Y 350.1.13.10 [address] 4.2.7.2.686 BANK [id number] BLDG. 141 2021-03-21 2021-03-21 Outpatient R RENZO [facility] [id number] Univers 13:45:00 13:45:00 FABY it[facility] 2021-01-17 2021-01-17 Emergency X BARBARA RUST ERT [id number] Univers 19:28:00 19:28:00 LAURENCE ity [facility] 2020-11-21 2020-11-21 Emergency X RUST ERT [id number] Univers 15:51:00 15:51:00 ity [facility] 2020-07-20 2020-07-20 (TEL) STLMLC STLMLC [id number] Co mmon 00:00:00 00:00:00 Spirit - [facility] 2020-07-12 2020-07-12 OFFICE STLMLC STLMLC [id number] Co mmon 00:00:00 00:00:00 VISIT EST Spir it PT LEVEL 3 - [facility] 2020-05-23 2020-05-23 OFFICE STLMLC STLMLC [id number] Co mmon 00:00:00 00:00:00 VISIT EST Spir it PT LEVEL 3 - [facility] 2020-02-24 2020-02-24 [facility] [id number] Common 14:42:00 14:42:[address] Spir it [address] [facility] 2020-02-22 2020-02-22 [facility] [id number] Common 13:51:00 13:51:[address] [facility] 2019-12-10 2019-12-10 [facility] 30 [id number] Common 15:39:00 15:39:[address] [facility] 2019-12-08 2019-12-08 [facility] 30 [id number] Common 13:40:00 13:40:[address] [facility] 2019-12-07 2019-12-07 [facility] 30 [id number] Common 12:05:00 12:05:[address] [facility] 2019-11-16 2019-11-16 [facility] [id number] Common 11:00:00 11:00:00 t Bone Bone and Spiri t and Joint [facility] - [facility] 2019-10-21 2019-10-21 Emergency X Blaire PADRON RUST ERT [id number] Univers 11:24:16 14:51:00 ity of [facility] 2019-09-29 2019-09-29 [facility] 29 [id number] Common 09:21:00 09:21:00 t Bone Bone and Spiri t and Joint Joint - [facility] 2019-09-21 2019-09-21 [facility] 29 [id number] Common 14:00:00 14:00:00 t Bone Bone and Spiri t and Joint Joint - [facility] 2019-03-13 2019-03-13 [facility] [id number] [place] 09:00:00 09:00:00 t; Lesa RODRIGUEZ Ph savannah Roberto M.D. 2018-10-02 2018-10-02 [facility] [id number] [place] 15:00:00 15:00:00 t; Asher JONES i, M.D. ans POURAN, M.D. 2018-09-25 2018-09-25 Appointritu CEJA [facility] [id number] [place] 10:30:00 10:30:00 t; BRANT CEJA NP Health and Valery GUO NP Wellness [facility] 2018-09-22 2018-09-22 Appointritu YOUSIF [facility] [id number] [place] 15:30:00 15:30:00 t; Asher JONES i, M.D. ans POURAN, M.D. 2018-08-22 2018-08-22 [facility] [id number] [place] 09:30:00 09:30:00 t; Lesa BRYANT Ph savannah Rios M.D. 2018-07-29 2018-07-29 Verito MUNOZ [facility] [id number] [place] 14:30:00 14:30:00 t; Lesa BRYANT Ph savannah Rios M.D. 2018-07-25 2018-07-25 Verito SCHMITT [facility] Orthopedics [id number] [place] 10:30:00 10:30:00 t; Lesa BRITT [facility] savannah Monk M.D. 2018-07-22 2018-07-22 Verito MUNOZ [facility] [id number] [place] 11:15:00 11:15:00 t; Lesa BRYANT [facility] Valery MUNOZ, Orthopedics savannah BRYANT M.D. 2018-07-15 2018-07-15 [facility] [id number] [place] 10:30:00 10:30:00 t; Lesa BRYANT [facility] Valery MUNOZ, Orthopedics savannah BRYANT M.D. 2018-07-09 2018-07-10 Day nullFlavo [facility] [id number] Memoria 18:05:00 00:00:00 Surgery r [place] 03 l Belmond Kelly 2018-07-09 2018-07-09 [facility] [id number] [place] 13:00:00 13:00:00 t; Lesa BRYANT savannah Rios M.D. 2018-06-30 2018-06-30 [facility] [id number] [place] 10:15:00 10:15:00 t; Lesa BRYANT [facility] Valery MUNOZ, Orthopedics savannah BRYANT M.D. 2018-06-24 2018-06-24 [facility] [id number] Memoria 00:15:00 05:59:00 r [place] 02 l Belmond Kelly 2018-06-20 2018-06-20 [facility] [id number] [place] 13:40:00 13:40:00 t; SHANE MONROE [facility] hyci GONZALEZ, Orthopedics a SHANE MONROE 2018-06-19 2018-06-19 [facility] [id number] [place] 08:15:00 08:15:00 t; GEOVANNA FOLEY D.O. Physici KERRY, ans D.O. 2018-06-17 2018-06-17 [facility] [id number] [place] 15:45:00 15:45:00 t; Lesa BRYANT [facility] Valery MUNOZ, Orthopedics savannah BRYANT M.D. 2018-06-03 2018-06-03 [facility] [id number] [place] 13:45:00 13:45:00 t; GEOVANNA FOLEY D.O. [facility] Physici savannah BASSETT D.O. 2018-05-16 2018-05-16 [facility] [id number] Memoria 10:52:00 13:34:00 r [place] 01 l Belmond Kelly nn Results Test Description Test Time Test Comments Results Result Comments Source SEDIMENTATION RATE 2023-03-26 23:40:46 Test Item Value Reference Range Interpretation Comme nts ESR (test code = 80848-3) 8 See_Comment [ Automated message] The system which generated this result transmitted ref erence range: 0 - 10 mm/HR. The r eference range was not used to int erpret this result as normal/abnor mal. Lab Interpretation (test code = Normal 94413-1) [facility]. METABOLIC PANEL ([id number])2023-03-26 23:32:47 Test Item Value Reference Range Interpretation Comments NA (test code = 141 mmol/L 135-145 1232660086) K (test code = 4.0 mmol/L 3.5-5.0 6337539546) CL (test code = 108 mmol/L 98-108 0599388939) CO2 TOTAL (test code 25 mmol/L 23-31 = 3034650414) AGAP (test code = 8 2-16 2799113184) BUN (test code = 10 mg/dL 7-23 8842662882) GLUCOSE (test code = 101 mg/dL 70-110 0510414265) CREATININE (test code 1.04 mg/dL 0.60-1.25 = 0542549201) TOTAL BILI (test code 0.4 mg/dL 0.1-1.1 = 3873813787) CALCIUM (test code = 9.1 mg/dL 8.6-10.6 0965251583) T PROTEIN (test code 7.5 g/dL 6.3-8.2 = 3446688881) ALBUMIN (test code = 4.2 g/dL 3.5-5.0 4360356279) ALK PHOS (test code = 113 U/L 34-122 5716247351) ALTv (test code = 42 U/L 5-50 1742-6) AST(SGOT) (test code 27 U/L 13-40 = 7115066666) eGFR (test code = 78.3 mL/min/1.73m2 6588348601) RYNE (test code = RYNE) Association of [...] or urine or abnormalities in imaging tests). [facility] WITH [id number] 22:51:22 Test Item Value Reference Range Interpretation Comments WBC (test code = 6.03 See_Comment [Automated 2350-2) message] The sy stem which generated this result transmitted reference range : 4.20 - 10.70 10*3/?L. The reference range was not used to interpret this result as normal/abnormal . RBC (test code = 4.87 See_Comment [Automated 192-6) message] The sy stem which generated this [...] RDW-SD (test code = 47.2 fL 38.5-51.6 01257-6) RDW-CV (test code = 14.6 % 12.1-15.4 788-0) PLT (test code = 189 See_Comment [Automated 777-3) message] The sy stem which generated this result transmitted reference range : 150 - 328 10*3/ ?L. The reference r caleb was not used to interpret this result as normal/abnormal . MPV (test code = 11.1 fL 9.8-13.0 32160-4) NRBC/100 WBC (test 0.0 See_Comment [Automat ed code = 8127131533) message] The system which generated this result transmitted reference range : 0.0 - 10.0 /100 WBCs. The refer ence range was not u sed to interpret th is result as normal/abnormal . NRBC x10^3 (test code See_Comment [Auto mated = 8918351100) message] The s ystem which generated this result transmitted reference range : 10*3/?L. The reference range was not used to interpret this result as normal/abnormal . GRAN MAT (NEUT) % 43.5 % (test code = 770-8) IMM GRAN % (test code 0.20 % = 9020658966) LYMPH % (test code = 36.7 % 736-9) MONO % (test code = 6.1 % 5905-5) EOS % (test code = 12.8 % 713-8) BASO % (test code = 0.7 % 706-2) GRAN MAT x10^3(ANC) 2.63 10*3/uL 1.99-6.95 (test code = 0408836025) IMM GRAN x10^3 (test 0.00-0.06 code = 1766482656) LYMPH x10^3 (test code 2.21 10*3/uL 1.09-3.23 = 731-0) MONO x10^3 (test code 0.37 10*3/uL 0.36-1.02 = 742-7) EOS x10^3 (test code = 0.77 10*3/uL 0.06-0.53 H 711-2) BASO x10^3 (test code 0.04 10*3/uL 0.01-0.09 = 704-7) Lab Interpretation Abnormal (test code = 15653-9) [facility]2023-05-29 02:15:00 Test Item Value Reference Range Interpretation Comments Urine culture (test SEE COMMENT Bacteriu katarzyna screen code = 1389390) negative. [facility]2023-05-29 02:15:00 Test Item Value Reference Range Interpretation Comments Urine culture (test SEE COMMENT Bacteriu katarzyna screen code = 6575176) negative. [facility]2023-05-29 02:15:00 Test Item Value Reference Range Interpretation Comments Urine culture (test SEE COMMENT Bacteriu katarzyna screen code = 9515890) negative. [facility]2023-05-29 02:15:00 Test Item Value Reference Range Interpretation Comments Urine culture (test SEE COMMENT Bacteriu katarzyna screen code = 9582979) negative. [facility]2023-05-29 02:15:00 Test Item Value Reference Range Interpretation Comments Urine culture (test SEE COMMENT Bacteriu katarzyna screen code = 7413441) negative. [place] [id number] 02:15:00 Test Item Value Reference Range Interpretation Comments Urine culture (test SEE COMMENT Bacteriu katarzyna screen code = 2616469) negative. [place] 940833-05-29 02:15:00 Test Item Value Reference Range Interpretation Comments Urine culture (test SEE COMMENT Bacteriu katarzyna screen code = 9922425) negative. [place] 05224-05-29 02:15:00 Test Item Value Reference Range Interpretation Comments Urine culture (test SEE COMMENT Bacteriu katarzyna screen code = 7566361) negative. [facility]2023-05-29 02:15:00 Test Item Value Reference Range Interpretation Comments Urine culture (test SEE COMMENT Bacteriu katarzyna screen code = 8590993) negative. [place] [id number] 21:10:35 Test Item Value Reference Range Interpretation [...] mastoideum, similar to prior CT temporal bone. [facility] BRISSA [id number] 06:16:00 Test Item Value Reference Range Interpretation Comments UA Color (test code = Yellow *NA*(05/19/22 UA Color) 1:16 AM) [facility] AND [id number] 06:16:00 Test Item Value Reference Range Interpretation Comments UA Turbidity (test code = Clear (05/19/22 1:16 UA Turbidity) AM) [facility] AND [id number] 06:16:00 Test Item Value Reference Range Interpretation Comments UA Spec Grav (test code = UA Spec 1.010 1 Grav) [facility] AND [id number] 06:16:00 Test Item Value Reference Range Interpretation Comments UA pH (test code = UA pH) 6.0 1 5.0-8.0 [facility] AND [id number] 06:16:00 Test Item Value Reference Range Interpretation Comments UA Protein (test code = UA Negative mg/dL Protein) [facility] AND [id number] 06:16:00 Test Item Value Reference Range Interpretation Comments UA Glucose (test code = UA Negative mg/dL Glucose) [facility] AND [id number] 06:16:00 Test Item Value Reference Range Interpretation Comments UA Ketones (test code = UA Negative mg/dL Ketones) [facility] AND [id number] 06:16:00 Test Item Value Reference Range Interpretation Comments UA Bili (test code = Negative *NA*(05/19/22 UA Bili) 1:16 AM) [facility] AND [id number] 06:16:00 Test Item Value Reference Range Interpretation Comments UA Blood (test code = Negative (05/19/22 1:16 UA Blood) AM) [facility] AND [id number] 06:16:00 Test Item Value Reference Range Interpretation Comments UA Urobilinogen (test code = UA 0.2 0.1-1.0 Urobilinogen) [facility] AND [id number] 06:16:00 Test Item Value Reference Range Interpretation Comments UA Nitrite (test code Negative (05/19/22 1:16 = UA Nitrite) AM) [facility] AND [id number] 06:16:00 Test Item Value Reference Range Interpretation Comments UA Leuk Est (test Negative (05/19/22 1:16 code = UA Leuk Est) AM) [facility] [id number] 06:16:00 Test Item Value Reference Range Interpretation Comments UA Sq Epi (test code = UA Sq Epi) Rare /LPF [facility] [id number] 06:16:00 Test Item Value Reference Range Interpretation Comments UA WBC (test code = no gt See_Comment [Automa leydi message] The UA WBC) system which ge nerated this result transmit leydi reference range : <=5. The reference range was not used to interpr et this result as krishna l/abnormal. [facility] [id number] 06:16:00 Test Item Value Reference Range Interpretation Comments UA RBC (test code = 1 See_Comment [Automa leydi message] The UA RBC) system which ge nerated this result transmit leydi reference range : <=2. The reference range was not used to interpr et this result as krishna l/abnormal. [facility] [employer] [id number] 03:27:00 Test Item Value Reference Range Interpretation Comments HS Troponin I Baseline (test code = HS 48 Troponin I Baseline) [facility] [id number] 03:18:00 Test Item Value Reference Range Interpretation Comments HS Troponin I (test code = HS Troponin 59 I) [facility] [employer] [id number] 03:18:00 Test Item Value Reference Range Interpretation Comments Phosphorus (test code = Phosphorus) 2.7 2.5-4.5 [facility] [employer]CHE[facility] [id number] 03:18:00 Test Item Value Reference Range Interpretation Comments Magnesium Lvl (test code = Magnesium 2.2 1.8-2.4 Lvl) [facility]PARATHYROID [id number] 03:18:00 Test Item Value Reference Range Interpretation Comments Ca Ion WB (test code = Ca Ion WB) 1.07 1.05-1.25 [facility]PARATHYROID [id number] 03:18:00 Test Item Value Reference Range Interpretation Comments Ca Ion at pH 7.4 WB (test code = Ca Ion 1.09 1.05-1.25 at pH 7.4 WB) [facility] [id number] 01:30:00 Test Item Value Reference Range Interpretation Comments HS Troponin I 1 Hr (test code = HS 41 Troponin I 1 Hr) [facility] [id number] 01:30:00 Test Item Value Reference Range Interpretation Comments HS Troponin I 0 to 1 xxxxxxx (05/18/22 8:30 Hour Delta (test code = PM) HS Troponin I 0 to 1 Hour Delta) [facility] [id number] 01:30:00 Test Item Value Reference Range Interpretation Comments Glucose Lvl (test code = Glucose Lvl) 107 70-99 [facility]2022-10-08 01:30:00 Test Item Value Reference Range Interpretation Comments BUN (test code = BUN) 18 7-22 [facility]2022-10-08 01:30:00 Test Item Value Reference Range Interpretation Comments Creatinine Lvl (test code = Creatinine 1.37 0.50-1.40 Lvl) [facility]2022-10-08 01:30:00 Test Item Value Reference Range Interpretation Comments Sodium Lvl (test code = Sodium Lvl) 137 135-145 [facility]2022-10-08 01:30:00 Test Item Value Reference Range Interpretation Comments Potassium Lvl (test code = Potassium 3.8 3.5-5.1 Lvl) [facility]2022-10-08 01:30:00 Test Item Value Reference Range Interpretation Comments Chloride Lvl (test code = Chloride Lvl) 107 95-109 [facility]2022-10-08 01:30:00 Test Item Value Reference Range Interpretation Comments CO2 (test code = CO2) 25 24-32 [place] [id number] 01:30:00 Test Item Value Reference Range Interpretation Comments Calcium Lvl (test code = Calcium Lvl) 9.7 8.5-10.5 [facility]2022-10-08 01:30:00 Test Item Value Reference Range Interpretation Comments Total Protein (test code = Total 7.6 6.4-8.4 Protein) [place] [id number] 01:30:00 Test Item Value Reference Range Interpretation Comments Albumin Lvl (test code = Albumin Lvl) 3.8 3.5-5.0 [facility]2022-10-08 01:30:00 Test Item Value Reference Range Interpretation Comments ALT (test code = ALT) 38 See_Comment [Auto mated message] The system which ge nerated this result transmit leydi reference range : <=65. The reference range was not used to interpr et this result as krishna l/abnormal. [facility] [employer] [id number] 01:30:00 Test Item Value Reference Range Interpretation Comments AST (test code = AST) 15 See_Comment [Auto mated message] The system which ge nerated this result transmit leydi reference range : <=37. The reference range was not used to interpr et this result as krishna l/abnormal. [facility] [employer] [id number] 01:30:00 Test Item Value Reference Range Interpretation Comments Alk Phos (test code = Alk Phos) 119 39-136 [facility] [employer] [id number] 01:30:00 Test Item Value Reference Range Interpretation Comments Bili Total (test code = Bili Total) 0.6 0.2-1.3 [facility] [employer] [id number] 01:30:00 Test Item Value Reference Range Interpretation Comments AGAP (test code = AGAP) 8.8 10.0-20.0 [facility] [employer] [id number] 01:30:00 Test Item Value Reference Range Interpretation Comments B/C Ratio (test code = B/C Ratio) 13 1 6-25 [facility] [employer] [id number] 01:30:00 Test Item Value Reference Range Interpretation Comments Globulin (test code = Globulin) 3.8 2.7-4.2 [facility] [employer] [id number] 01:30:00 Test Item Value Reference Range Interpretation Comments A/G Ratio (test code = A/G Ratio) 1.0 1 0.7-1.6 [facility] [employer] [id number] 01:30:00 Test Item Value Reference Range Interpretation Comments eGFR (test code = eGFR) 66 [facility] [employer] [id number] 01:30:00 Test Item Value Reference Range Interpretation Comments Lipase Lvl (test code = Lipase Lvl) 75 73-393 [facility] [employer]CARDIAC [id number] 20:19:00 Test Item Value Reference Range Interpretation Comments HS Troponin I (test code = HS Troponin 7 I) [facility] Hospital[facility] [id number] 20:19:00 Test Item Value Reference Range Interpretation Comments Glucose Lvl (test code = Glucose Lvl) 101 70-99 [place] [id number] 20:19:00 Test Item Value Reference Range Interpretation Comments BUN (test code = BUN) 17 7-22 [place] [id number] 20:19:00 Test Item Value Reference Range Interpretation Comments Creatinine Lvl (test code = Creatinine 1.36 0.50-1.40 Lvl) [place] [id number] 20:19:00 Test Item Value Reference Range Interpretation Comments Sodium Lvl (test code = Sodium Lvl) 139 135-145 [place] 261672-10-07 20:19:00 Test Item Value Reference Range Interpretation Comments Potassium Lvl (test code = Potassium 3.6 3.5-5.1 Lvl) [facility]2022-10-07 20:19:00 Test Item Value Reference Range Interpretation Comments Chloride Lvl (test code = Chloride Lvl) 106 95-109 [place] [id number] 20:19:00 Test Item Value Reference Range Interpretation Comments CO2 (test code = CO2) 25 24-32 [place] [id number] 20:19:00 Test Item Value Reference Range Interpretation Comments Calcium Lvl (test code = Calcium Lvl) 9.9 8.5-10.5 [facility]2022-10-07 20:19:00 Test Item Value Reference Range Interpretation Comments AGAP (test code = AGAP) 11.6 10.0-20.0 [place] 261672-10-07 20:19:00 Test Item Value Reference Range Interpretation Comments eGFR (test code = eGFR) 67 [facility]2022-10-07 20:19:00 Test Item Value Reference Range Interpretation Comments Lactic Acid Lvl (test code = Lactic 1.1 0.5-2.2 Acid Lvl) [facility] CenterLuofcecIEBQCMMZUM1900-[facility] 20:19:00 Test Item Value Reference Range Interpretation Comments WBC (test code = WBC) 8.3 3.7-10.4 [place] 970652-10-07 20:19:00 Test Item Value Reference Range Interpretation Comments RBC (test code = RBC) 5.68 4.70-6.10 [place] 970652-10-07 20:19:00 Test Item Value Reference Range Interpretation Comments Hgb (test code = Hgb) 15.6 14.0-18.0 [facility] CenterBlpaqbrOPPELCEWBL8330-83-32 20:19:00 Test Item Value Reference Range Interpretation Comments Hct (test code = Hct) 48.0 42.0-54.0 [facility] CenterDyuuvugKQNLEQGOHC8747-53-59 20:19:00 Test Item Value Reference Range Interpretation Comments MCV (test code = MCV) 84.5 80.0-94.0 [facility] CenterUttjdueGQUXNGUIEC2402-85-85 20:19:00 Test Item Value Reference Range Interpretation Comments MCH (test code = MCH) 27.4 pg 27.0-31.0 [facility] CenterBpfpuoxWOCWGNUKEU2963-87-52 20:19:00 Test Item Value Reference Range Interpretation Comments MCHC (test code = MCHC) 32.4 32.0-36.0 [facility] CenterQloqyroGXWZWOXQPJ6386-21-21 20:19:00 Test Item Value Reference Range Interpretation Comments RDW (test code = RDW) 14.8 11.5-14.5 [facility] CenterTcfksvrHWXCVGWVNU4646-33-45 20:19:00 Test Item Value Reference Range Interpretation Comments Platelet (test code = Platelet) 207 133-450 [facility] CenterGmynryhIUXQZHKPMV0079-54-91 20:19:00 Test Item Value Reference Range Interpretation Comments MPV (test code = MPV) 9.5 7.4-10.4 [facility] CenterFreyclwDPRCRRIUIU0749-25-70 20:19:00 Test Item Value Reference Range Interpretation Comments PT (test code = PT) 12.0 s 12.0-14.7 [facility] CenterXgpeumwSYOAMHRXLL9166-56-65 20:19:00 Test Item Value Reference Range Interpretation Comments INR (test code = INR) 0.89 1 0.85-1.17 [place] 970652-10-07 20:19:00 Test Item Value Reference Range Interpretation Comments PTT (test code = PTT) 27.2 s 22.9-35.8 [facility] CenterCfvpxdaVXIEUNRAGS1742-18-40 20:19:00 Test Item Value Reference Range Interpretation Comments Segs (test code = Segs) 51.5 45.0-75.0 [facility] CenterVbooucaQXRDFVNRQV0292-27-19 20:19:00 Test Item Value Reference Range Interpretation Comments Lymphocytes (test code = Lymphocytes) 38.1 20.0-40.0 [facility] CenterIaunljbHRPLJSCGBE5656-87-03 20:19:00 Test Item Value Reference Range Interpretation Comments Monocytes (test code = Monocytes) 6.0 2.0-12.0 [facility] CenterJumgbrhJYJUKFTHNT1453-98-33 20:19:00 Test Item Value Reference Range Interpretation Comments Eosinophils (test code = 3.9 See_Comment [A utomated message] The Eosinophils) system which ge nerated this result tra nsmitted reference range : <=4.0. The reference r caleb was not used to int erpret this result as normal/abnormal . [facility] CenterYnfzbofWPNDPRIZHA7917-67-28 20:19:00 Test Item Value Reference Range Interpretation Comments Basophils (test code = 0.5 See_Comment [Aut omated message] The Basophils) system which ge nerated this result tra nsmitted reference range : <=1.0. The reference r caleb was not used to int erpret this result as normal/abnormal . [facility] CenterRqcfzdrVYIHWEXXTU3256-34-63 20:19:00 Test Item Value Reference Range Interpretation Comments Neutrophils # (test code = Neutrophils 4.3 1.5-8.1 #) [facility] CenterEowvdqcPJUQVBRRGZ3113-89-99 20:19:00 Test Item Value Reference Range Interpretation Comments Lymphocytes # (test code = Lymphocytes 3.2 1.0-5.5 #) [facility] CenterIqbupwtEYWKQHLPSG8170-98-10 20:19:00 Test Item Value Reference Range Interpretation Comments Monocytes # (test code 0.5 See_Comment [Aut omated message] The = Monocytes #) system which generated this result tra nsmitted reference range : <=0.8. The reference r caleb was not used to int erpret this result as normal/abnormal . [facility] CenterLimlnqfVOGQPMDWYG3568-19-08 20:19:00 Test Item Value Reference Range Interpretation Comments Eosinophils # (test code 0.3 See_Comment [A utomated message] The = Eosinophils #) system whic h generated this result tra nsmitted reference range : <=0.5. The reference r caleb was not used to int erpret this result as normal/abnormal . [facility] JYJGYTR6567-79-49 05:26:00 Test Item Value Reference Range Interpretation Comments ABO/Rh (test code = ABO/Rh) O POS [facility] YMJLUPY5089-04-04 05:26:00 Test Item Value Reference Range Interpretation Comments Antibody Scrn (test Negative (05/17/22 code = Antibody Scrn) 12:26 AM) [facility]2022-10-06 05:26:00 Test Item Value Reference Range Interpretation Comments Glucose Lvl (test code = Glucose Lvl) 94 70-99 [facility]2022-10-06 05:26:00 Test Item Value Reference Range Interpretation Comments BUN (test code = BUN) 17 - [facility]2022-10-06 05:26:00 Test Item Value Reference Range Interpretation Comments Creatinine Lvl (test code = Creatinine 1.32 0.50-1.40 Lvl) [facility]2022-10-06 05:26:00 Test Item Value Reference Range Interpretation Comments Sodium Lvl (test code = Sodium Lvl) 140 135-145 [facility]2022-10-06 05:26:00 Test Item Value Reference Range Interpretation Comments Potassium Lvl (test code = Potassium 3.9 3.5-5.1 Lvl) [facility]2022-10-06 05:26:00 Test Item Value Reference Range Interpretation Comments Chloride Lvl (test code = Chloride Lvl) 108 95-109 [facility]2022-10-06 05:26:00 Test Item Value Reference Range Interpretation Comments CO2 (test code = CO2) 28 24-32 [facility]2022-10-06 05:26:00 Test Item Value Reference Range Interpretation Comments Calcium Lvl (test code = Calcium Lvl) 9.3 8.5-10.5 [facility]2022-10-06 05:26:00 Test Item Value Reference Range Interpretation Comments AGAP (test code = AGAP) 7.9 10.0-20.0 [facility]2022-10-06 05:26:00 Test Item Value Reference Range Interpretation Comments eGFR (test code = eGFR) 69 [facility] CenterLjltbuqYSKXAMQHLA8382-88-64 05:26:00 Test Item Value Reference Range Interpretation Comments Segs (test code = Segs) 46.4 45.0-75.0 [facility] CenterLysgfphZYAJKFWEQD8322-03-83 05:26:00 Test Item Value Reference Range Interpretation Comments Lymphocytes (test code = Lymphocytes) 43.4 20.0-40.0 [place] 970652-10-06 05:26:00 Test Item Value Reference Range Interpretation Comments Monocytes (test code = Monocytes) 7.2 2.0-12.0 [place] 970652-10-06 05:26:00 Test Item Value Reference Range Interpretation Comments Eosinophils (test code = 2.1 See_Comment [A utomated message] The Eosinophils) system which ge nerated this result tra nsmitted reference range : <=4.0. The reference r caleb was not used to int erpret this result as normal/abnormal . [facility] CenterYjhhpnnNSMIDWSHTN4074-18-08 05:26:00 Test Item Value Reference Range Interpretation Comments Basophils (test code = 0.9 See_Comment [Aut omated message] The Basophils) system which ge nerated this result tra nsmitted reference range : <=1.0. The reference r caleb was not used to int erpret this result as normal/abnormal . [facility] CenterFnkgrrvTDYRPLKFRD3267-87-69 05:26:00 Test Item Value Reference Range Interpretation Comments Neutrophils # (test code = Neutrophils 3.9 1.5-8.1 #) [facility] CenterBhdcokfGSRCLIQRIP7444-72-32 05:26:00 Test Item Value Reference Range Interpretation Comments Lymphocytes # (test code = Lymphocytes 3.7 1.0-5.5 #) [facility] CenterUzpglxsLMRUVFOKHM1951-59-48 05:26:00 Test Item Value Reference Range Interpretation Comments Monocytes # (test code 0.6 See_Comment [Aut omated message] The = Monocytes #) system which generated this result tra nsmitted reference range : <=0.8. The reference r caleb was not used to int erpret this result as normal/abnormal . [facility] CenterKdgkhuaISPEHCBRQH9145-10-19 05:26:00 Test Item Value Reference Range Interpretation Comments Eosinophils # (test code 0.2 See_Comment [A utomated message] The = Eosinophils #) system whic h generated this result tra nsmitted reference range : <=0.5. The reference r caleb was not used to int erpret this result as normal/abnormal . [facility] CenterUsscdctSCPVEBRMNH2833-92-73 05:26:00 Test Item Value Reference Range Interpretation Comments Basophils # (test code 0.1 See_Comment [Aut omated message] The = Basophils #) system which generated this result tra nsmitted reference range : <=0.2. The reference r caleb was not used to int erpret this result as normal/abnormal . [facility] CenterCqgyapfLGMMKFKVVI4486-84-19 05:26:00 Test Item Value Reference Range Interpretation Comments WBC (test code = WBC) 8.4 3.7-10.4 [facility] CenterWdgwnqjTYKBJJYBSH1116-56-48 05:26:00 Test Item Value Reference Range Interpretation Comments RBC (test code = RBC) 4.95 4.70-6.10 [facility] CenterDyjdakzYFNDKWIZRV0881-60-90 05:26:00 Test Item Value Reference Range Interpretation Comments Hgb (test code = Hgb) 13.7 14.0-18.0 [facility] CenterIyycvvvGZANWXLGAI3104-51-17 05:26:00 Test Item Value Reference Range Interpretation Comments Hct (test code = Hct) 41.5 42.0-54.0 [facility] CenterPfwaplkMOFNSKDKPG8739-24-79 05:26:00 Test Item Value Reference Range Interpretation Comments MCV (test code = MCV) 83.7 80.0-94.0 [facility] CenterStdwmlgAONYBCXJKQ4087-37-30 05:26:00 Test Item Value Reference Range Interpretation Comments MCH (test code = MCH) 27.6 pg 27.0-31.0 [facility] CenterGztituoJUOWHVVNCF1792-32-19 05:26:00 Test Item Value Reference Range Interpretation Comments MCHC (test code = MCHC) 33.0 32.0-36.0 [facility] CenterIcnkvlwNFRSGLVCIH9571-12-27 05:26:00 Test Item Value Reference Range Interpretation Comments RDW (test code = RDW) 14.6 11.5-14.5 [facility] CenterYczjnjwWQMNBCLKPQ0066-17-87 05:26:00 Test Item Value Reference Range Interpretation Comments Platelet (test code = Platelet) 187 133-450 [facility] CenterWxcbkevDTRMIGBOSY3329-73-71 05:26:00 Test Item Value Reference Range Interpretation Comments MPV (test code = MPV) 9.7 7.4-10.4 [facility] CenterJbzenoiNEZJTFCUKP9066-31-04 05:26:00 Test Item Value Reference Range Interpretation Comments PTT (test code = PTT) 25.7 s 22.9-35.8 [place] 970652-10-06 05:26:00 Test Item Value Reference Range Interpretation Comments PT (test code = PT) 11.9 s 12.0-14.7 [place] [address]-10-06 05:26:00 Test Item Value Reference Range Interpretation Comments INR (test code = INR) 0.88 1 0.85-1.17 [place] [address]-10-06 05:26:00 Test Item Value Reference Range Interpretation Comments TEG Interp (test Thromboelastograph results code = TEG show shortened value of R. Interp) This finding is suggestive of enzymatic hypercoagulation. CPT:[id number] [facility] CenterKssfxsyDFLRXGETXL2270-95-64 05:26:00 Test Item Value Reference Range Interpretation Comments R-time (test code = R-time) 4.5 min 5.0-10.0 [place] [address]-10-06 05:26:00 Test Item Value Reference Range Interpretation Comments K-time (test code = K-time) 1.2 min 1.0-3.0 [place] 970652-10-06 05:26:00 Test Item Value Reference Range Interpretation Comments Angle (test code = Angle) 71.2 degrees 53.0-72.0 [place] [address]-10-06 05:26:00 Test Item Value Reference Range Interpretation Comments Max Amp (test code = Max Amp) 61.8 mm 50.0-70.0 [place] [address]-10-06 05:26:00 Test Item Value Reference Range Interpretation Comments G-value (test code = G-value) 8.1 4.5-11.0 [place] 970652-10-06 05:26:00 Test Item Value Reference Range Interpretation Comments Ly30 (test code = 0.3 See_Comment [Automate d message] The Ly30) system which ge nerated this result transmit leydi reference range : <=7.5. The reference range was not used to interpr et this result as krishna l/abnormal. [place] [address]-10-06 05:26:00 Test Item Value Reference Range Interpretation Comments Coag Index (test code 1.8 1 See_Comment [Auto mated message] The = Coag Index) system which g enerated this result transmit leydi reference range : <=3.0. The reference range was not used to interpr et this result as krishna l/abnormal. [facility] CenterUfoooxtTCFLOVGKXT7829-31-21 05:26:00 Test Item Value Reference Range Interpretation Comments TEG Data (test code = See Note (05/17/22 12:26 TEG Data) AM) [facility]pfxnYMKSXCPRDU7595-83-57 03:56:00 Test Item Value Reference Range Interpretation Comments Coronavirus (COVID-19) Not Detected (05/16/22 LIZBETH (test code = 10:56 PM) Coronavirus (COVID-19) LIZBETH) [facility] CenterLlvjevoMBKNFCTIOW8948-71-64 23:51:55 Test Item Value Reference Range Interpretation Comments WBC X 10x3 (test code = WBC X 10x3) 9.1 3.7-10.4 [facility] CenterCmjaxqyEFBPDURHXL8632-57-38 23:51:55 Test Item Value Reference Range Interpretation Comments RBC X 10x6 (test code = RBC X 10x6) 4.96 4.70-6.10 [facility] CenterSpijcheJPIPSTLIZY6498-31-44 23:51:55 Test Item Value Reference Range Interpretation Comments Hgb (test code = Hgb) 13.7 14.0-18.0 [facility] CenterDbiajfyEOSLIQOSST9006-53-33 23:51:55 Test Item Value Reference Range Interpretation Comments Hct (test code = Hct) 42.3 42.0-54.0 [facility] CenterVuurgvdDLDXUCPRWZ8013-26-01 23:51:55 Test Item Value Reference Range Interpretation Comments MCV (test code = MCV) 85.3 80.0-94.0 [facility] CenterKthpkcrPUGCZXNANI1492-26-90 23:51:55 Test Item Value Reference Range Interpretation Comments MCH (test code = MCH) 27.6 pg 27.0-31.0 [facility] CenterMumsalrMQOQJAETXZ5909-15-19 23:51:55 Test Item Value Reference Range Interpretation Comments MCHC (test code = MCHC) 32.4 32.0-36.0 [facility] CenterRtxwyucTJOFKDWNSB9316-57-87 23:51:55 Test Item Value Reference Range Interpretation Comments RDW (test code = RDW) 14.7 11.5-14.5 [facility]kobsxpTGHTCSLXCN2502-[facility] 23:51:55 Test Item Value Reference Range Interpretation Comments Platelet (test code = Platelet) 183 133-[address]10-05 23:51:55 Test Item Value Reference Range Interpretation Comments MPV (test code = MPV) 9.2 7.4-10.[address]10-05 23:51:55 Test Item Value Reference Range Interpretation Comments Segs (test code = Segs) 56.1 45.0-75.0 [address]10-05 23:51:55 Test Item Value Reference Range Interpretation Comments Lymphocytes (test code = Lymphocytes) 35.0 20.0-40.0 [address]10-05 23:51:55 Test Item Value Reference Range Interpretation Comments Monocytes (test code = Monocytes) 6.5 2.0-12.0 [address]10-05 23:51:55 Test Item Value Reference Range Interpretation Comments Eosinophils (test code = 1.8 See_Comment [A utomated message] The Eosinophils) system which ge nerated this result tra nsmitted reference range : <=4.0. The reference r caleb was not used to int erpret this result as normal/abnormal . [address]10-05 23:51:55 Test Item Value Reference Range Interpretation Comments Basophils (test code = 0.6 See_Comment [Aut omated message] The Basophils) system which ge nerated this result tra nsmitted reference range : <=1.0. The reference r caleb was not used to int erpret this result as normal/abnormal . [place] [address]-10-05 23:51:55 Test Item Value Reference Range Interpretation Comments Neutrophils # (test code = Neutrophils 5.1 1.5-8.1 #) [address]10-05 23:51:55 Test Item Value Reference Range Interpretation Comments Lymphocytes # (test code = Lymphocytes 3.2 1.0-5.5 #) [address]10-05 23:51:55 Test Item Value Reference Range Interpretation Comments Monocytes # (test code 0.6 See_Comment [Aut omated message] The = Monocytes #) system which generated this result tra nsmitted reference range : <=0.8. The reference r caleb was not used to int erpret this result as normal/abnormal . [address]10-05 23:51:55 Test Item Value Reference Range Interpretation Comments Eosinophils # (test code 0.2 See_Comment [A utomated message] The = Eosinophils #) system whic h generated this result tra nsmitted reference range : <=0.5. The reference r caleb was not used to int erpret this result as normal/abnormal . [facility] CenterBACTERIAL - [id number] 17:30:00 Test Item Value Reference Range Interpretation Comments Source Strep (test code Cerebral Spinal Fluid = Source Strep) [facility] CenterBACT[facility] - [id number] 17:30:00 Test Item Value Reference Range Interpretation Comments Strep pneumoniae Ag Negative (05/12/22 (test code = Strep 12:30 PM) pneumoniae Ag) [facility] [id number] 17:30:00 Test Item Value Reference Range Interpretation Comments Tube Num CSF (test code = Tube Num CSF) 1 1 [facility] AMGIZT0916-24-07 17:30:00 Test Item Value Reference Range Interpretation Comments Color CSF (test code Colorless (05/12/22 12:30 = Color CSF) PM) [facility] [id number] 17:30:00 Test Item Value Reference Range Interpretation Comments Clarity CSF (test code = Clear (05/12/22 12:30 Clarity CSF) PM) [facility] [id number] 17:30:00 Test Item Value Reference Range Interpretation Comments Supernat CSF (test Colorless (05/12/22 code = Supernat CSF) 12:30 PM) [facility] [id number] 17:30:00 Test Item Value Reference Range Interpretation Comments Nucleated Cells CSF 4 See_Comment [Automa leydi message] The (test code = Nucleated syste m which generated Cells CSF) this result tra nsmitted reference range : <=53. The reference r caleb was not used to int erpret this result as normal/abnormal . [facility] [id number] 17:30:00 Test Item Value Reference Range Interpretation Comments RBC CSF (test code = 1 See_Comment [Autom ated message] The RBC CSF) system which ge nerated this result transmit leydi reference range : <=03. The reference range was not used to interpr et this result as krishna l/abnormal. [facility] [id number] 17:30:00 Test Item Value Reference Range Interpretation Comments Comment CSF (test Differential not code = Comment CSF) performed on WBC count of less than 5. [facility] [id number] 17:30:00 Test Item Value Reference Range Interpretation Comments Glucose CSF (test code = Glucose CSF) 71 45-80 [facility] [id number] 17:30:00 Test Item Value Reference Range Interpretation Comments Protein CSF (test code = Protein CSF) 195 15-45 [facility] CenterGram Stain Bejwsy8483-04-43 17:30:00 Test Item Value Reference Range Interpretation Comments Gram Stain Report Gram Stain Performed By: (test code = Gram [facility] Stain Report) [facility] w/Gram [id number] 17:30:00 Test Item Value Reference Range Interpretation Comments Culture: CSF w/Gram 48 Hour Report - No Stain (test code = Growth, Holding Culture: CSF w/Gram Stain) [facility] [employer] [id number] 10:41:00 Test Item Value Reference Range Interpretation Comments Glucose Lvl (test code = Glucose Lvl) 149 70-99 [facility] [employer] [id number] 10:41:00 Test Item Value Reference Range Interpretation Comments BUN (test code = BUN) 12 7-22 [facility] [employer] [id number] 10:41:00 Test Item Value Reference Range Interpretation Comments Creatinine Lvl (test code = Creatinine 1.37 0.50-1.40 Lvl) [facility] [employer] [id number] 10:41:00 Test Item Value Reference Range Interpretation Comments Sodium Lvl (test code = Sodium Lvl) 142 135-145 [facility] [employer] [id number] 10:41:00 Test Item Value Reference Range Interpretation Comments Potassium Lvl (test code = Potassium 3.9 3.5-5.1 Lvl) [facility] [id number] 10:41:00 Test Item Value Reference Range Interpretation Comments Chloride Lvl (test code = Chloride Lvl) 110 95-109 [facility] [employer] [id number] 10:41:00 Test Item Value Reference Range Interpretation Comments CO2 (test code = CO2) 26 24-32 [facility] [id number] 10:41:00 Test Item Value Reference Range Interpretation Comments Calcium Lvl (test code = Calcium Lvl) 9.3 8.5-10.5 [place] 261672-10-01 10:41:00 Test Item Value Reference Range Interpretation Comments AGAP (test code = AGAP) 9.9 10.0-20.0 [place] 261672-10-01 10:41:00 Test Item Value Reference Range Interpretation Comments eGFR (test code = eGFR) 66 [place] 261672-10-01 10:41:00 Test Item Value Reference Range Interpretation Comments Total Protein (test code = Total 7.2 6.4-8.4 Protein) [place] 261672-10-01 10:41:00 Test Item Value Reference Range Interpretation Comments Albumin Lvl (test code = Albumin Lvl) 3.5 3.5-5.0 [place] 261672-10-01 10:41:00 Test Item Value Reference Range Interpretation Comments Globulin (test code = Globulin) 3.7 2.7-4.2 [place] 261672-10-01 10:41:00 Test Item Value Reference Range Interpretation Comments A/G Ratio (test code = A/G Ratio) 0.9 1 0.7-1.6 [place] [address]-10-01 10:41:00 Test Item Value Reference Range Interpretation Comments ALANINE AMINOTRANSFERASE 32 See_Comment [A utomated message] (test code = ALANINE The sys tem which AMINOTRANSFERASE) generated this result transmitted ref erence range: <=65. Th e reference range was not used to int erpret this result as normal/abnormal . [place] 261672-10-01 10:41:00 Test Item Value Reference Range Interpretation Comments AST (test code = AST) 14 See_Comment [Auto mated message] The system which ge nerated this result transmit leydi reference range : <=37. The reference range was not used to interpr et this result as krishna l/abnormal. [place] 261672-10-01 10:41:00 Test Item Value Reference Range Interpretation Comments Alk Phos (test code = Alk Phos) 110 39-136 [place] 261672-10-01 10:41:00 Test Item Value Reference Range Interpretation Comments Bili Total (test code = Bili Total) 0.3 0.2-1.3 [facility]2022-10-01 10:41:00 Test Item Value Reference Range Interpretation Comments Bili Direct (test code no gt See_Comment [Aut omated message] The = Bili Direct) system which generated this result tra nsmitted reference range : <=0.3. The reference r caleb was not used to int erpret this result as krishna l/abnormal. [facility]2022-10-01 10:41:00 Test Item Value Reference Range Interpretation Comments Bili Indirect Unable to See_Comment [Automated (test code = Bili Calculate message] T he system Indirect) which generated this result transmitted reference range : <=1.0. The reference range was not used to interpret this result as normal/abnormal . [place] 970652-10-01 10:41:00 Test Item Value Reference Range Interpretation Comments WBC X 10x3 (test code = WBC X 10x3) 13.2 3.7-10.4 [place] 970652-10-01 10:41:00 Test Item Value Reference Range Interpretation Comments RBC X 10x6 (test code = RBC X 10x6) 4.65 4.70-6.10 [place] [address]-10-01 10:41:00 Test Item Value Reference Range Interpretation Comments Hgb (test code = Hgb) 12.7 14.0-18.0 [place] 970652-10-01 10:41:00 Test Item Value Reference Range Interpretation Comments Hct (test code = Hct) 39.8 42.0-54.0 [place] 970652-10-01 10:41:00 Test Item Value Reference Range Interpretation Comments MCV (test code = MCV) 85.5 80.0-94.0 [place] [address]-10-01 10:41:00 Test Item Value Reference Range Interpretation Comments MCH (test code = MCH) 27.4 pg 27.0-31.0 [place] 970652-10-01 10:41:00 Test Item Value Reference Range Interpretation Comments MCHC (test code = MCHC) 32.0 32.0-36.0 [place] [address]-10-01 10:41:00 Test Item Value Reference Range Interpretation Comments RDW (test code = RDW) 14.6 11.5-14.5 [place] 970652-10-01 10:41:00 Test Item Value Reference Range Interpretation Comments Platelet (test code = Platelet) 217 133-450 [place] 970652-10-01 10:41:00 Test Item Value Reference Range Interpretation Comments MPV (test code = MPV) 9.4 7.4-10.4 [place] 970652-10-01 10:41:00 Test Item Value Reference Range Interpretation Comments PT (test code = PT) 12.4 s 12.0-14.7 [place] [address]-10-01 10:41:00 Test Item Value Reference Range Interpretation Comments INR (test code = INR) 0.93 1 0.85-1.17 [place] [address]-10-01 10:41:00 Test Item Value Reference Range Interpretation Comments PTT (test code = PTT) 27.5 s 22.9-35.8 [place] [address]-10-01 10:41:00 Test Item Value Reference Range Interpretation Comments Segs (test code = Segs) 80.2 45.0-75.0 [place] 970652-10-01 10:41:00 Test Item Value Reference Range Interpretation Comments Lymphocytes (test code = Lymphocytes) 14.3 20.0-40.0 [facility]DuatnhcGCZIZQUCKV5906-11-73 10:41:00 Test Item Value Reference Range Interpretation Comments Monocytes (test code = Monocytes) 4.8 2.0-12.0 [place] 970652-10-01 10:41:00 Test Item Value Reference Range Interpretation Comments Eosinophils (test code = 0.4 See_Comment [A utomated message] The Eosinophils) system which ge nerated this result tra nsmitted reference range : <=4.0. The reference r caleb was not used to int erpret this result as normal/abnormal . [place] 970652-10-01 10:41:00 Test Item Value Reference Range Interpretation Comments Basophils (test code = 0.3 See_Comment [Aut omated message] The Basophils) system which ge nerated this result tra nsmitted reference range : <=1.0. The reference r caleb was not used to int erpret this result as normal/abnormal . [place] 970652-10-01 10:41:00 Test Item Value Reference Range Interpretation Comments Neutrophils # (test code = Neutrophils 10.6 1.5-8.1 #) [facility] CenterHycakmwBXLWNMFYBL5554-51-44 10:41:00 Test Item Value Reference Range Interpretation Comments Lymphocytes # (test code = Lymphocytes 1.9 1.0-5.5 #) [facility] CenterNvaozjeEEUMCUVPAX8983-92-88 10:41:00 Test Item Value Reference Range Interpretation Comments Monocytes # (test code 0.6 See_Comment [Aut omated message] The = Monocytes #) system which generated this result tra nsmitted reference range : <=0.8. The reference r caleb was not used to int erpret this result as normal/abnormal . [facility] CenterBqirfcuCBKATKGMZZ7074-40-50 10:41:00 Test Item Value Reference Range Interpretation Comments Eosinophils # (test code 0.1 See_Comment [A utomated message] The = Eosinophils #) system whic h generated this result tra nsmitted reference range : <=0.5. The reference r caleb was not used to int erpret this result as normal/abnormal . [facility]HS[facility]62[facility] 10:41:00 Test Item Value Reference Range Interpretation Comments Hep C Ab (test code = Hep C Ab) NON-REACTIVE [place] [address]-10-01 10:41:00 Test Item Value Reference Range Interpretation Comments Hep Signal to Cut-Off (test code = Hep 0.07 1 Signal to Cut-Off) [facility]qjglgJAZVUTNAIF5815-67-83 10:41:00 Test Item Value Reference Range Interpretation Comments [facility] HIV 4th GEN (test Negative *NA*(05/12/22 code = CDC HIV 4th 5:41 AM) GEN) [facility] CenterPfxiopsMBRIIVKGWS3868-53-25 21:33:00 Test Item Value Reference Range Interpretation Comments Neutrophils # (test code = Neutrophils 4.4 1.5-8.1 #) [facility] CenterGjwrndwPFYQKWGTYK2153-16-15 21:33:00 Test Item Value Reference Range Interpretation Comments Lymphocytes # (test code = Lymphocytes 1.1 1.0-5.5 #) [facility] CenterEmvksahDRXRQLZCWU8203-14-24 21:33:00 Test Item Value Reference Range Interpretation Comments Monocytes # (test code 0.2 See_Comment [Aut omated message] The = Monocytes #) system which generated this result tra nsmitted reference range : <=0.8. The reference r caleb was not used to int erpret this result as normal/abnormal . [facility] CenterJmzrukwZMZDBGZLRG8937-95-84 21:33:00 Test Item Value Reference Range Interpretation Comments Eosinophils # (test code 0.2 See_Comment [A utomated message] The = Eosinophils #) system whic h generated this result tra nsmitted reference range : <=0.5. The reference r caleb was not used to int erpret this result as normal/abnormal . [place] 261672-02-28 21:33:00 Test Item Value Reference Range Interpretation Comments Glucose Lvl (test code = Glucose Lvl) 114 70-99 [place] 261672-02-28 21:33:00 Test Item Value Reference Range Interpretation Comments BUN (test code = BUN) 14 7-22 [place] 261672-02-28 21:33:00 Test Item Value Reference Range Interpretation Comments Creatinine Lvl (test code = Creatinine 1.36 0.50-1.40 Lvl) [place] 261672-02-28 21:33:00 Test Item Value Reference Range Interpretation Comments Sodium Lvl (test code = Sodium Lvl) 139 135-145 [place] 261672-02-28 21:33:00 Test Item Value Reference Range Interpretation Comments Potassium Lvl (test code = Potassium 4.6 3.5-5.1 Lvl) [place] 261672-02-28 21:33:00 Test Item Value Reference Range Interpretation Comments Chloride Lvl (test code = Chloride Lvl) 104 95-109 [place] 261672-02-28 21:33:00 Test Item Value Reference Range Interpretation Comments CO2 (test code = CO2) 29 24-32 [place] 261672-02-28 21:33:00 Test Item Value Reference Range Interpretation Comments Calcium Lvl (test code = Calcium Lvl) 9.3 8.5-10.5 [place] 261672-02-28 21:33:00 Test Item Value Reference Range Interpretation Comments AGAP (test code = AGAP) 10.6 10.0-20.0 [place] 261672-02-28 21:33:00 Test Item Value Reference Range Interpretation Comments eGFR (test code = eGFR) 64 [facility] CenterNqoisbeFEJBYIIDMQ2371-79-29 21:33:00 Test Item Value Reference Range Interpretation Comments WBC (test code = WBC) 5.9 3.7-10.4 [facility] CenterReovwgrJCJNUBSIWK2508-88-74 21:33:00 Test Item Value Reference Range Interpretation Comments RBC (test code = RBC) 4.85 4.70-6.10 [place] 970652-02-28 21:33:00 Test Item Value Reference Range Interpretation Comments Hgb (test code = Hgb) 13.7 14.0-18.0 [place] 970652-02-28 21:33:00 Test Item Value Reference Range Interpretation Comments Hct (test code = Hct) 41.5 42.0-54.0 [place] 970652-02-28 21:33:00 Test Item Value Reference Range Interpretation Comments MCV (test code = MCV) 85.4 80.0-94.0 [place] 970652-02-28 21:33:00 Test Item Value Reference Range Interpretation Comments MCH (test code = MCH) 28.2 pg 27.0-31.0 [facility] CenterSirhvyjXAGVBHUPFT9546-57-84 21:33:00 Test Item Value Reference Range Interpretation Comments MCHC (test code = MCHC) 33.0 32.0-36.0 [facility] CenterBhkqgxfCIJBXSJGKS4691-74-86 21:33:00 Test Item Value Reference Range Interpretation Comments RDW (test code = RDW) 14.0 11.5-14.5 [facility] CenterEcshdjmOSWNNKTWKA1951-82-74 21:33:00 Test Item Value Reference Range Interpretation Comments Platelet (test code = Platelet) 186 133-450 [facility] CenterZeooaipEFNXIQTCYD1718-56-43 21:33:00 Test Item Value Reference Range Interpretation Comments MPV (test code = MPV) 9.1 7.4-10.4 [place] 970652-02-28 21:33:00 Test Item Value Reference Range Interpretation Comments PT (test code = PT) 12.4 s 12.0-14.7 [place] 970652-02-28 21:33:00 Test Item Value Reference Range Interpretation Comments INR (test code = INR) 0.93 1 0.85-1.17 [place] 970652-02-28 21:33:00 Test Item Value Reference Range Interpretation Comments PTT (test code = PTT) 27.8 s 22.9-35.8 [place] [address]-02-28 21:33:00 Test Item Value Reference Range Interpretation Comments Segs (test code = Segs) 73.9 45.0-75.0 [place] [address]-02-28 21:33:00 Test Item Value Reference Range Interpretation Comments Lymphocytes (test code = Lymphocytes) 18.2 20.0-40.0 [place] 970652-02-28 21:33:00 Test Item Value Reference Range Interpretation Comments Monocytes (test code = Monocytes) 3.4 2.0-12.0 [place] [address]-02-28 21:33:00 Test Item Value Reference Range Interpretation Comments Eosinophils (test code = 4.2 See_Comment [A utomated message] The Eosinophils) system which ge nerated this result tra nsmitted reference range : <=4.0. The reference r caleb was not used to int erpret this result as normal/abnormal . [place] [address]-02-28 21:33:00 Test Item Value Reference Range Interpretation Comments Basophils (test code = 0.3 See_Comment [Aut omated message] The Basophils) system which ge nerated this result tra nsmitted reference range : <=1.0. The reference r caleb was not used to int erpret this result as normal/abnormal . [place] 970652-02-28 21:33:00 Test Item Value Reference Range Interpretation Comments Neutrophils # (test code = Neutrophils 4.4 1.5-8.1 #) [place] 970652-02-28 21:33:00 Test Item Value Reference Range Interpretation Comments Lymphocytes # (test code = Lymphocytes 1.1 1.0-5.5 #) [place] [address]-02-28 21:33:00 Test Item Value Reference Range Interpretation Comments Monocytes # (test code 0.2 See_Comment [Aut omated message] The = Monocytes #) system which generated this result tra nsmitted reference range : <=0.8. The reference r caleb was not used to int erpret this result as normal/abnormal . [place] 970652-02-28 21:33:00 Test Item Value Reference Range Interpretation Comments Eosinophils # (test code 0.2 See_Comment [A utomated message] The = Eosinophils #) system [employer] h generated this result tra nsmitted reference range : <=0.5. The reference r caleb was not used to int erpret this result as normal/abnormal . [place] 261672-02-28 21:33:00 Test Item Value Reference Range Interpretation Comments Glucose Lvl (test code = Glucose Lvl) 114 70-99 [place] 261672-02-28 21:33:00 Test Item Value Reference Range Interpretation Comments BUN (test code = BUN) 14 7-22 [place] 261672-02-28 21:33:00 Test Item Value Reference Range Interpretation Comments Creatinine Lvl (test code = Creatinine 1.36 0.50-1.40 Lvl) [place] 261672-02-28 21:33:00 Test Item Value Reference Range Interpretation Comments Sodium Lvl (test code = Sodium Lvl) 139 135-145 [place] 261672-02-28 21:33:00 Test Item Value Reference Range Interpretation Comments Potassium Lvl (test code = Potassium 4.6 3.5-5.1 Lvl) [place] 261672-02-28 21:33:00 Test Item Value Reference Range Interpretation Comments Chloride Lvl (test code = Chloride Lvl) 104 95-109 [place] 261672-02-28 21:33:00 Test Item Value Reference Range Interpretation Comments CO2 (test code = CO2) 29 24-32 [place] 261672-02-28 21:33:00 Test Item Value Reference Range Interpretation Comments Calcium Lvl (test code = Calcium Lvl) 9.3 8.5-10.5 [place] 261672-02-28 21:33:00 Test Item Value Reference Range Interpretation Comments AGAP (test code = AGAP) 10.6 10.0-20.0 [place] 261672-02-28 21:33:00 Test Item Value Reference Range Interpretation Comments eGFR (test code = eGFR) 64 [place] 970652-02-28 21:33:00 Test Item Value Reference Range Interpretation Comments WBC (test code = WBC) 5.9 3.7-10.4 [place] [address]-02-28 21:33:00 Test Item Value Reference Range Interpretation Comments RBC (test code = RBC) 4.85 4.70-6.10 [place] [address]-02-28 21:33:00 Test Item Value Reference Range Interpretation Comments Hgb (test code = Hgb) 13.7 14.0-18.0 [place] [address]-02-28 21:33:00 Test Item Value Reference Range Interpretation Comments Hct (test code = Hct) 41.5 42.0-54.0 [place] 970652-02-28 21:33:00 Test Item Value Reference Range Interpretation Comments MCV (test code = MCV) 85.4 80.0-94.0 [place] [address]-02-28 21:33:00 Test Item Value Reference Range Interpretation Comments MCH (test code = MCH) 28.2 pg 27.0-31.0 [place] [address]-02-28 21:33:00 Test Item Value Reference Range Interpretation Comments MCHC (test code = MCHC) 33.0 32.0-36.0 [place] 970652-02-28 21:33:00 Test Item Value Reference Range Interpretation Comments RDW (test code = RDW) 14.0 11.5-14.5 [place] [address]-02-28 21:33:00 Test Item Value Reference Range Interpretation Comments Platelet (test code = Platelet) 186 133-450 [place] 970652-02-28 21:33:00 Test Item Value Reference Range Interpretation Comments MPV (test code = MPV) 9.1 7.4-10.4 [place] 970652-02-28 21:33:00 Test Item Value Reference Range Interpretation Comments PT (test code = PT) 12.4 s 12.0-14.7 [place] [address]-02-28 21:33:00 Test Item Value Reference Range Interpretation Comments INR (test code = INR) 0.93 1 0.85-1.17 [place] [address]-02-28 21:33:00 Test Item Value Reference Range Interpretation Comments PTT (test code = PTT) 27.8 s 22.9-35.8 [place] 970652-02-28 21:33:00 Test Item Value Reference Range Interpretation Comments Segs (test code = Segs) 73.9 45.0-75.0 [place] 970652-02-28 21:33:00 Test Item Value Reference Range Interpretation Comments Lymphocytes (test code = Lymphocytes) 18.2 20.0-40.0 [place] 970652-02-28 21:33:00 Test Item Value Reference Range Interpretation Comments Monocytes (test code = Monocytes) 3.4 2.0-12.0 [place] 970652-02-28 21:33:00 Test Item Value Reference Range Interpretation Comments Eosinophils (test code = 4.2 See_Comment [A utomated message] The Eosinophils) system which ge nerated this result tra nsmitted reference range : <=4.0. The reference r caleb was not used to int erpret this result as normal/abnormal . [place] 970652-02-28 21:33:00 Test Item Value Reference Range Interpretation Comments Basophils (test code = 0.3 See_Comment [Aut omated message] The Basophils) system which ge nerated this result tra nsmitted reference range : <=1.0. The reference r caleb was not used to int erpret this result as normal/abnormal . [facility]2022-02-28 20:31:00 Test Item Value Reference Range Interpretation Comments Glucose CSF (test code = Glucose CSF) 77 45-80 [place] 817722-02-28 20:31:00 Test Item Value Reference Range Interpretation Comments Protein CSF (test code = Protein CSF) 33 15-45 [place] 817722-02-28 20:31:00 Test Item Value Reference Range Interpretation Comments Tube Num CSF (test xxxxxxx (10/09/21 2:31 code = Tube Num CSF) PM) [facility]2022-02-28 20:31:00 Test Item Value Reference Range Interpretation Comments Color CSF (test code Colorless (10/09/21 2:31 = Color CSF) PM) [facility]2022-02-28 20:31:00 Test Item Value Reference Range Interpretation Comments Clarity CSF (test code = Clear (10/09/21 2:31 Clarity CSF) PM) [place] 817722-02-28 20:31:00 Test Item Value Reference Range Interpretation Comments Supernat CSF (test Colorless (10/09/21 2:31 code = Supernat CSF) PM) [facility]2022-02-28 20:31:00 Test Item Value Reference Range Interpretation Comments Nucleated Cells CSF 9 See_Comment [Automa leydi message] The (test code = Nucleated syste m which generated Cells CSF) this result tra nsmitted reference range : <=53. The reference r caleb was not used to int erpret this result as normal/abnormal . [facility]2022-02-28 20:31:00 Test Item Value Reference Range Interpretation Comments RBC CSF (test code = 280 See_Comment [Autom ated message] The RBC CSF) system which ge nerated this result transmit leydi reference range : <=03. The reference range was not used to interpr et this result as krishna l/abnormal. [facility]2022-02-28 20:31:00 Test Item Value Reference Range Interpretation Comments Neutrophils CSF (test 64 See_Comment [Auto mated message] The code = Neutrophils CSF) syst em which generated this result tra nsmitted reference range : <=6. The reference r caleb was not used to int erpret this result as normal/abnormal . [facility]2022-02-28 20:31:00 Test Item Value Reference Range Interpretation Comments Lymph CSF (test code = Lymph CSF) 30 40-80 [facility]2022-02-28 20:31:00 Test Item Value Reference Range Interpretation Comments Monocyte CSF (test code = Monocyte CSF) 6 15-45 [facility] Jlhbypbay0875-75-23 20:31:00 Test Item Value Reference Range Interpretation Comments Culture: Anaerobic No Anaerobes Isolated (test code = Culture: After 3 Days Anaerobic) [facility] CenterG[facility] Stain Bgzhfq2701-49-31 20:31:00 Test Item Value Reference Range Interpretation Comments Gram Stain Report Few Wbc'S; No Organisms (test code = Gram Seen Stain Report) [facility] w/Gram [id number] 20:31:00 Test Item Value Reference Range Interpretation Comments Culture: CSF w/Gram 72 Hour Report - No Stain (test code = Growth, Holding Culture: CSF w/Gram Stain) [facility]2022-02-28 20:31:00 Test Item Value Reference Range Interpretation Comments Glucose CSF (test code = Glucose CSF) 77 45-80 [facility]2022-02-28 20:31:00 Test Item Value Reference Range Interpretation Comments Protein CSF (test code = Protein CSF) 33 15-45 [facility]2022-02-28 20:31:00 Test Item Value Reference Range Interpretation Comments Tube Num CSF (test xxxxxxx (10/09/21 2:31 code = Tube Num CSF) PM) [facility]2022-02-28 20:31:00 Test Item Value Reference Range Interpretation Comments Color CSF (test code Colorless (10/09/21 2:31 = Color CSF) PM) [facility]2022-02-28 20:31:00 Test Item Value Reference Range Interpretation Comments Clarity CSF (test code = Clear (10/09/21 2:31 Clarity CSF) PM) [facility]2022-02-28 20:31:00 Test Item Value Reference Range Interpretation Comments Supernat CSF (test Colorless (10/09/21 2:31 code = Supernat CSF) PM) [facility]2022-02-28 20:31:00 Test Item Value Reference Range Interpretation Comments Nucleated Cells CSF 9 See_Comment [Automa leydi message] The (test code = Nucleated syste m which generated Cells CSF) this result tra nsmitted reference range : <=53. The reference r caleb was not used to int erpret this result as normal/abnormal . [facility]2022-02-28 20:31:00 Test Item Value Reference Range Interpretation Comments RBC CSF (test code = 280 See_Comment [Autom ated message] The RBC CSF) system which ge nerated this result transmit leydi reference range : <=03. The reference range was not used to interpr et this result as krishna l/abnormal. [facility]2022-02-28 20:31:00 Test Item Value Reference Range Interpretation Comments Neutrophils CSF (test 64 See_Comment [Auto mated message] The code = Neutrophils CSF) syst em which generated this result tra nsmitted reference range : <=6. The reference r caleb was not used to int erpret this result as normal/abnormal . [facility]2022-02-28 20:31:00 Test Item Value Reference Range Interpretation Comments Lymph CSF (test code = Lymph CSF) 30 40-80 [facility]2022-02-28 20:31:00 Test Item Value Reference Range Interpretation Comments Monocyte CSF (test code = Monocyte CSF) 6 15-45 [facility]: Pduwwfjjx3703-17-75 20:31:00 Test Item Value Reference Range Interpretation Comments Culture: Anaerobic No Anaerobes Isolated (test code = Culture: After 3 Days Anaerobic) [facility] CenterGram Stain [id number] 20:31:00 Test Item Value Reference Range Interpretation Comments Gram Stain Report Few Wbc'S; No Organisms (test code = Gram Seen Stain Report) [facility]: CSF w/Gram [id number] 20:31:00 Test Item Value Reference Range Interpretation Comments Culture: CSF w/Gram 72 Hour Report - No Stain (test code = Growth, Holding Culture: CSF w/Gram Stain) [facility]2022-02-28 08:57:00 Test Item Value Reference Range Interpretation Comments Glucose Lvl (test code = Glucose Lvl) 109 70-99 [facility]2022-02-28 08:57:00 Test Item Value Reference Range Interpretation Comments BUN (test code = BUN) 17 03-02 [facility]2022-02-28 08:57:00 Test Item Value Reference Range Interpretation Comments Creatinine Lvl (test code = Creatinine 1.28 0.50-1.40 Lvl) [facility]2022-02-28 08:57:00 Test Item Value Reference Range Interpretation Comments Sodium Lvl (test code = Sodium Lvl) 140 135-145 [facility]2022-02-28 08:57:00 Test Item Value Reference Range Interpretation Comments Potassium Lvl (test code = Potassium 3.9 3.5-5.1 Lvl) [facility]2022-02-28 08:57:00 Test Item Value Reference Range Interpretation Comments Chloride Lvl (test code = Chloride Lvl) 108 95-109 [facility]2022-02-28 08:57:00 Test Item Value Reference Range Interpretation Comments CO2 (test code = CO2) -32 [facility]2022-02-28 08:57:00 Test Item Value Reference Range Interpretation Comments Calcium Lvl (test code = Calcium Lvl) 9.5 8.5-10.5 [facility]2022-02-28 08:57:00 Test Item Value Reference Range Interpretation Comments AGAP (test code = AGAP) 8.9 10.0-20.0 [facility] CenterCHEM MVCUT8627-27-40 08:57:00 Test Item Value Reference Range Interpretation Comments eGFR (test code = eGFR) 69 [facility] CenterBsxkfufWOWVVASKTC8812-31-88 08:57:00 Test Item Value Reference Range Interpretation Comments WBC (test code = WBC) 8.5 3.7-10.4 [place] 970652-02-28 08:57:00 Test Item Value Reference Range Interpretation Comments RBC (test code = RBC) 4.69 4.70-6.10 [place] 970652-02-28 08:57:00 Test Item Value Reference Range Interpretation Comments Hgb (test code = Hgb) 13.3 14.0-18.0 [place] 970652-02-28 08:57:00 Test Item Value Reference Range Interpretation Comments Hct (test code = Hct) 40.4 42.0-54.0 [place] 970652-02-28 08:57:00 Test Item Value Reference Range Interpretation Comments MCV (test code = MCV) 86.1 80.0-94.0 [place] 970652-02-28 08:57:00 Test Item Value Reference Range Interpretation Comments MCH (test code = MCH) 28.3 pg 27.0-31.0 [place] 970652-02-28 08:57:00 Test Item Value Reference Range Interpretation Comments MCHC (test code = MCHC) 32.9 32.0-36.0 [place] 970652-02-28 08:57:00 Test Item Value Reference Range Interpretation Comments RDW (test code = RDW) 14.1 11.5-14.5 [place] 970652-02-28 08:57:00 Test Item Value Reference Range Interpretation Comments Platelet (test code = Platelet) 192 133-450 [facility] CenterTpetbxiAKYYZDQXMB9554-96-78 08:57:00 Test Item Value Reference Range Interpretation Comments MPV (test code = MPV) 9.2 7.4-10.4 [place] 970652-02-28 08:57:00 Test Item Value Reference Range Interpretation Comments R-time (test code = R-time) 6.0 min 5.0-10.0 [place] [address]-02-28 08:57:00 Test Item Value Reference Range Interpretation Comments K-time (test code = K-time) 1.4 min 1.0-3.0 [place] 970652-02-28 08:57:00 Test Item Value Reference Range Interpretation Comments Angle (test code = Angle) 69.7 degrees 53.0-72.0 [place] 970652-02-28 08:57:00 Test Item Value Reference Range Interpretation Comments Max Amp (test code = Max Amp) 66.3 mm 50.0-70.0 [place] 970652-02-28 08:57:00 Test Item Value Reference Range Interpretation Comments G-value (test code = G-value) 9.8 4.5-11.0 [place] [address]-02-28 08:57:00 Test Item Value Reference Range Interpretation Comments Ly30 (test code = 0.6 See_Comment [Automate d message] The Ly30) system which ge nerated this result transmit leydi reference range : <=7.5. The reference range was not used to interpr et this result as krishna l/abnormal. [place] [address]-02-28 08:57:00 Test Item Value Reference Range Interpretation Comments Coag Index (test code 1.2 1 See_Comment [Auto mated message] The = Coag Index) system which g enerated this result transmit leydi reference range : <=3.0. The reference range was not used to interpr et this result as krishna l/abnormal. [place] 970652-02-28 08:57:00 Test Item Value Reference Range Interpretation Comments TEG Data (test code = See Note (10/09/21 2:57 TEG Data) AM) [place] [address]-02-28 08:57:00 Test Item Value Reference Range Interpretation Comments PT (test code = PT) 12.1 s 12.0-14.7 [place] 970652-02-28 08:57:00 Test Item Value Reference Range Interpretation Comments INR (test code = INR) 0.90 1 0.85-1.17 [place] 970652-02-28 08:57:00 Test Item Value Reference Range Interpretation Comments PTT (test code = PTT) 27.6 s 22.9-35.8 [place] [address]-02-28 08:57:00 Test Item Value Reference Range Interpretation Comments Segs (test code = Segs) 52.0 45.0-75.0 [place] [address]-02-28 08:57:00 Test Item Value Reference Range Interpretation Comments Lymphocytes (test code = Lymphocytes) 33.8 20.0-40.0 [place] [address]-02-28 08:57:00 Test Item Value Reference Range Interpretation Comments Monocytes (test code = Monocytes) 8.0 2.0-12.0 [place] [address]-02-28 08:57:00 Test Item Value Reference Range Interpretation Comments Eosinophils (test code = 5.8 See_Comment [A utomated message] The Eosinophils) system which ge nerated this result tra nsmitted reference range : <=4.0. The reference r caleb was not used to int erpret this result as normal/abnormal . [place] [address]-02-28 08:57:00 Test Item Value Reference Range Interpretation Comments Basophils (test code = 0.4 See_Comment [Aut omated message] The Basophils) system which ge nerated this result tra nsmitted reference range : <=1.0. The reference r caleb was not used to int erpret this result as normal/abnormal . [place] [address]-02-28 08:57:00 Test Item Value Reference Range Interpretation Comments Neutrophils # (test code = Neutrophils 4.4 1.5-8.1 #) [place] [address]-02-28 08:57:00 Test Item Value Reference Range Interpretation Comments Lymphocytes # (test code = Lymphocytes 2.9 1.0-5.5 #) [place] [address]-02-28 08:57:00 Test Item Value Reference Range Interpretation Comments Monocytes # (test code 0.7 See_Comment [Aut omated message] The = Monocytes #) system which generated this result tra nsmitted reference range : <=0.8. The reference r caleb was not used to int erpret this result as normal/abnormal . [place] [address]-02-28 08:57:00 Test Item Value Reference Range Interpretation Comments Eosinophils # (test code 0.5 See_Comment [A utomated message] The = Eosinophils #) system whic h generated this result tra nsmitted reference range : <=0.5. The reference r caleb was not used to int erpret this result as normal/abnormal . [facility]00 Test Item Value Reference Range Interpretation Comments TEG Interp (test Thrombelastograph results code = TEG are within reference ranges. Interp) Note that TEG does not show effect of NSAIDs or P2Y12 inhibitors. CPT:61145 [facility]2022-02-28 08:57:00 Test Item Value Reference Range Interpretation Comments Glucose Lvl (test code = Glucose Lvl) 109 70-99 [place] 261672-02-28 08:57:00 Test Item Value Reference Range Interpretation Comments BUN (test code = BUN) 17 7-22 [place] 261672-02-28 08:57:00 Test Item Value Reference Range Interpretation Comments Creatinine Lvl (test code = Creatinine 1.28 0.50-1.40 Lvl) [place] 261672-02-28 08:57:00 Test Item Value Reference Range Interpretation Comments Sodium Lvl (test code = Sodium Lvl) 140 135-145 [place] 261672-02-28 08:57:00 Test Item Value Reference Range Interpretation Comments Potassium Lvl (test code = Potassium 3.9 3.5-5.1 Lvl) [place] 261672-02-28 08:57:00 Test Item Value Reference Range Interpretation Comments Chloride Lvl (test code = Chloride Lvl) 108 95-109 [place] 261672-02-28 08:57:00 Test Item Value Reference Range Interpretation Comments CO2 (test code = CO2) 27 24-32 [place] 261672-02-28 08:57:00 Test Item Value Reference Range Interpretation Comments Calcium Lvl (test code = Calcium Lvl) 9.5 8.5-10.5 [place] 261672-02-28 08:57:00 Test Item Value Reference Range Interpretation Comments AGAP (test code = AGAP) 8.9 10.0-20.0 [place] 261672-02-28 08:57:00 Test Item Value Reference Range Interpretation Comments eGFR (test code = eGFR) 69 [facility]LuyrqrxZFRZXHJNKV7947-38-22 08:57:00 Test Item Value Reference Range Interpretation Comments WBC (test code = WBC) 8.5 3.7-10.4 [place] 970652-02-28 08:57:00 Test Item Value Reference Range Interpretation Comments RBC (test code = RBC) 4.69 4.70-6.10 [place] 970652-02-28 08:57:00 Test Item Value Reference Range Interpretation Comments Hgb (test code = Hgb) 13.3 14.0-18.0 [place] 970652-02-28 08:57:00 Test Item Value Reference Range Interpretation Comments Hct (test code = Hct) 40.4 42.0-54.0 [place] 970652-02-28 08:57:00 Test Item Value Reference Range Interpretation Comments MCV (test code = MCV) 86.1 80.0-94.0 [place] 970652-02-28 08:57:00 Test Item Value Reference Range Interpretation Comments MCH (test code = MCH) 28.3 pg 27.0-31.0 [place] 970652-02-28 08:57:00 Test Item Value Reference Range Interpretation Comments MCHC (test code = MCHC) 32.9 32.0-36.0 [facility] CenterUjoeiqfWKFRJKCDGZ7756-17-36 08:57:00 Test Item Value Reference Range Interpretation Comments RDW (test code = RDW) 14.1 11.5-14.5 [place] 970652-02-28 08:57:00 Test Item Value Reference Range Interpretation Comments Platelet (test code = Platelet) 192 133-450 [facility] CenterPkptxzlTJMJUKEFYX2174-74-17 08:57:00 Test Item Value Reference Range Interpretation Comments MPV (test code = MPV) 9.2 7.4-10.4 [place] [address]-02-28 08:57:00 Test Item Value Reference Range Interpretation Comments R-time (test code = R-time) 6.0 min 5.0-10.0 [place] 970652-02-28 08:57:00 Test Item Value Reference Range Interpretation Comments K-time (test code = K-time) 1.4 min 1.0-3.0 [address]02-28 08:57:00 Test Item Value Reference Range Interpretation Comments Angle (test code = Angle) 69.7 degrees 53.0-72.0 [facility] CenterIbbswwnMYREALHQAC0272-97-88 08:57:00 Test Item Value Reference Range Interpretation Comments Max Amp (test code = Max Amp) 66.3 mm 50.0-70.0 [place] 970652-02-28 08:57:00 Test Item Value Reference Range Interpretation Comments G-value (test code = G-value) 9.8 4.5-11.0 [place] 970652-02-28 08:57:00 Test Item Value Reference Range Interpretation Comments Ly30 (test code = 0.6 See_Comment [Automate d message] The Ly30) system which ge nerated this result transmit leydi reference range : <=7.5. The reference range was not used to interpr et this result as krishna l/abnormal. [place] 970652-02-28 08:57:00 Test Item Value Reference Range Interpretation Comments Coag Index (test code 1.2 1 See_Comment [Auto mated message] The = Coag Index) system which g enerated this result transmit leydi reference range : <=3.0. The reference range was not used to interpr et this result as krishna l/abnormal. [place] 970652-02-28 08:57:00 Test Item Value Reference Range Interpretation Comments TEG Data (test code = See Note (10/09/21 2:57 TEG Data) AM) [place] 970652-02-28 08:57:00 Test Item Value Reference Range Interpretation Comments PT (test code = PT) 12.1 s 12.0-14.7 [place] 970652-02-28 08:57:00 Test Item Value Reference Range Interpretation Comments INR (test code = INR) 0.90 1 0.85-1.17 [place] [address]-02-28 08:57:00 Test Item Value Reference Range Interpretation Comments PTT (test code = PTT) 27.6 s 22.9-35.8 [place] 970652-02-28 08:57:00 Test Item Value Reference Range Interpretation Comments Segs (test code = Segs) 52.0 45.0-75.0 [place] 970652-02-28 08:57:00 Test Item Value Reference Range Interpretation Comments Lymphocytes (test code = Lymphocytes) 33.8 20.0-40.0 [place] 970652-02-28 08:57:00 Test Item Value Reference Range Interpretation Comments Monocytes (test code = Monocytes) 8.0 2.0-12.0 [place] [address]-02-28 08:57:00 Test Item Value Reference Range Interpretation Comments Eosinophils (test code = 5.8 See_Comment [A utomated message] The Eosinophils) system which ge nerated this result tra nsmitted reference range : <=4.0. The reference r caleb was not used to int erpret this result as normal/abnormal . [place] [address]-02-28 08:57:00 Test Item Value Reference Range Interpretation Comments Basophils (test code = 0.4 See_Comment [Aut omated message] The Basophils) system which ge nerated this result tra nsmitted reference range : <=1.0. The reference r caleb was not used to int erpret this result as normal/abnormal . [facility] CenterOubwcyrCEOOQMGRZD4501-73-96 08:57:00 Test Item Value Reference Range Interpretation Comments Neutrophils # (test code = Neutrophils 4.4 1.5-8.1 #) [place]70652-02-28 08:57:00 Test Item Value Reference Range Interpretation Comments Lymphocytes # (test code = Lymphocytes 2.9 1.0-5.5 #) [place] 970652-02-28 08:57:00 Test Item Value Reference Range Interpretation Comments Monocytes # (test code 0.7 See_Comment [Aut omated message] The = Monocytes #) system which generated this result tra nsmitted reference range : <=0.8. The reference r caleb was not used to int erpret this result as normal/abnormal . [place] [address]-02-28 08:57:00 Test Item Value Reference Range Interpretation Comments Eosinophils # (test code 0.5 See_Comment [A utomated message] The = Eosinophils #) system whic h generated this result tra nsmitted reference range : <=0.5. The reference r caleb was not used to int erpret this result as normal/abnormal . [place] 970652-02-28 08:57:00 Test Item Value Reference Range Interpretation Comments TEG Interp (test Thrombelastograph results code = TEG are within reference ranges. Interp) Note that TEG does not show effect of NSAIDs or P2Y12 inhibitors. CPT:[id number] [facility]2022-02-28 02:07:26 Test Item Value Reference Range Interpretation Comments Glucose Lvl (test code = Glucose Lvl) 95 70-99 [place] 261672-02-28 02:07:26 Test Item Value Reference Range Interpretation Comments BUN (test code = BUN) 13 7-22 [place] 261672-02-28 02:07:26 Test Item Value Reference Range Interpretation Comments Creatinine Lvl (test code = Creatinine 1.24 0.50-1.40 Lvl) [place] 261672-02-28 02:07:26 Test Item Value Reference Range Interpretation Comments Sodium Lvl (test code = Sodium Lvl) 140 135-145 [place] 261672-02-28 02:07:26 Test Item Value Reference Range Interpretation Comments Potassium Lvl (test code = Potassium 3.7 3.5-5.1 Lvl) [place] 261672-02-28 02:07:26 Test Item Value Reference Range Interpretation Comments Chloride Lvl (test code = Chloride Lvl) 106 95-109 [place] 261672-02-28 02:07:26 Test Item Value Reference Range Interpretation Comments CO2 (test code = CO2) 30 24-32 [place] 261672-02-28 02:07:26 Test Item Value Reference Range Interpretation Comments Calcium Lvl (test code = Calcium Lvl) 9.5 8.5-10.5 [place] 261672-02-28 02:07:26 Test Item Value Reference Range Interpretation Comments AGAP (test code = AGAP) 7.7 10.0-20.0 [place] 261672-02-28 02:07:26 Test Item Value Reference Range Interpretation Comments eGFR (test code = eGFR) 72 [place] 970652-02-28 02:07:26 Test Item Value Reference Range Interpretation Comments WBC X 10x3 (test code = WBC X 10x3) 7.4 3.7-10.4 [place] 970652-02-28 02:07:26 Test Item Value Reference Range Interpretation Comments RBC X 10x6 (test code = RBC X 10x6) 5.06 4.70-6.10 [place] 970652-02-28 02:07:26 Test Item Value Reference Range Interpretation Comments Hgb (test code = Hgb) 14.0 14.0-18.0 [place] 970652-02-28 02:07:26 Test Item Value Reference Range Interpretation Comments Hct (test code = Hct) 43.5 42.0-54.0 [place] 970652-02-28 02:07:26 Test Item Value Reference Range Interpretation Comments MCV (test code = MCV) 85.9 80.0-94.0 [place] [address]-02-28 02:07:26 Test Item Value Reference Range Interpretation Comments MCH (test code = MCH) 27.7 pg 27.0-31.0 [place] 970652-02-28 02:07:26 Test Item Value Reference Range Interpretation Comments MCHC (test code = MCHC) 32.3 32.0-36.0 [place] 970652-02-28 02:07:26 Test Item Value Reference Range Interpretation Comments RDW (test code = RDW) 13.9 11.5-14.5 [place] 970652-02-28 02:07:26 Test Item Value Reference Range Interpretation Comments Platelet (test code = Platelet) 192 133-450 [place] 970652-02-28 02:07:26 Test Item Value Reference Range Interpretation Comments MPV (test code = MPV) 9.1 7.4-10.4 [place] 970652-02-28 02:07:26 Test Item Value Reference Range Interpretation Comments ACT (TEG) Rapid (test code = ACT (TEG) 128 s 86-118 Rapid) [place] 970652-02-28 02:07:26 Test Item Value Reference Range Interpretation Comments Split Point Rapid (test code = Split 0.7 min Point Rapid) [place] 970652-02-28 02:07:26 Test Item Value Reference Range Interpretation Comments R-time Rapid (test code = R-time 0.8 min 0.4-0.7 Rapid) [place]70652-02-28 02:07:26 Test Item Value Reference Range Interpretation Comments K-time Rapid (test code = K-time 1.1 min 0.6-2.3 Rapid) [place]70652-02-28 02:07:26 Test Item Value Reference Range Interpretation Comments Angle Rapid (test code = Angle 76 degrees 64-80 Rapid) [place] [address]-02-28 02:07:26 Test Item Value Reference Range Interpretation Comments Max Amplitude Rapid (test code = Max 71 mm 52-71 Amplitude Rapid) [place] [address]-02-28 02:07:26 Test Item Value Reference Range Interpretation Comments G-value Rapid (test code = G-value 12.1 5.0-11.6 Rapid) [place] [address]-02-28 02:07:26 Test Item Value Reference Range Interpretation Comments Estimated % Lysis Rapid 0.8 See_Comment [Au tomated message] The (test code = Estimated syste m which generated % Lysis Rapid) this result t ransmitted reference range : <=7.5. The reference r caleb was not used to int erpret this result as normal/abnormal . [facility] CenterEpupgoxGGKCTZQHJM3725-34-10 02:07:26 Test Item Value Reference Range Interpretation Comments PT (test code = PT) 12.5 s 12.0-14.7 [place] [address]-02-28 02:07:26 Test Item Value Reference Range Interpretation Comments INR (test code = INR) 0.94 1 0.85-1.17 [place] [address]-02-28 02:07:26 Test Item Value Reference Range Interpretation Comments PTT (test code = PTT) 29.6 s 22.9-35.8 [place] [address]-02-28 02:07:26 Test Item Value Reference Range Interpretation Comments Segs (test code = Segs) 57.2 45.0-75.0 [place] [address]-02-28 02:07:26 Test Item Value Reference Range Interpretation Comments Lymphocytes (test code = Lymphocytes) 30.9 20.0-40.0 [place] [address]-02-28 02:07:26 Test Item Value Reference Range Interpretation Comments Monocytes (test code = Monocytes) 5.6 2.0-12.0 [place] [address]-02-28 02:07:26 Test Item Value Reference Range Interpretation Comments Eosinophils (test code = 5.6 See_Comment [A utomated message] The Eosinophils) system which ge nerated this result tra nsmitted reference range : <=4.0. The reference r caleb was not used to int erpret this result as normal/abnormal . [facility] CenterViohbrtQTQNCQSVSP9500-80-47 02:07:26 Test Item Value Reference Range Interpretation Comments Basophils (test code = 0.7 See_Comment [Aut omated message] The Basophils) system which ge nerated this result tra nsmitted reference range : <=1.0. The reference r caleb was not used to int erpret this result as normal/abnormal . [facility] CenterOsouxlpRXKJKFCQCP5819-09-93 02:07:26 Test Item Value Reference Range Interpretation Comments Neutrophils # (test code = Neutrophils 4.3 1.5-8.1 #) [facility] CenterMbxztgjLTATSPCPHD2328-13-60 02:07:26 Test Item Value Reference Range Interpretation Comments Lymphocytes # (test code = Lymphocytes 2.3 1.0-5.5 #) [facility] CenterHpkckdpEOQFALJNTD8901-76-38 02:07:26 Test Item Value Reference Range Interpretation Comments Monocytes # (test code 0.4 See_Comment [Aut omated message] The = Monocytes #) system which generated this result tra nsmitted reference range : <=0.8. The reference r caleb was not used to int erpret this result as normal/abnormal . [facility] CenterCybhrjeXJBORQNCQE8318-59-32 02:07:26 Test Item Value Reference Range Interpretation Comments Eosinophils # (test code 0.4 See_Comment [A utomated message] The = Eosinophils #) system whic h generated this result tra nsmitted reference range : <=0.5. The reference r caleb was not used to int erpret this result as normal/abnormal . [facility] CenterQhxulswMMPUAHUKRB7229-13-93 02:07:26 Test Item Value Reference Range Interpretation Comments Coronavirus (COVID-19) Not Detected (10/08/21 LIZBETH (test code = 8:07 PM) Coronavirus (COVID-19) LIZBETH) [facility]2022-02-28 02:07:26 Test Item Value Reference Range Interpretation Comments Glucose Lvl (test code = Glucose Lvl) 95 70-99 [place] 261672-02-28 02:07:26 Test Item Value Reference Range Interpretation Comments BUN (test code = BUN) 13 7-22 [place] 261672-02-28 02:07:26 Test Item Value Reference Range Interpretation Comments Creatinine Lvl (test code = Creatinine 1.24 0.50-1.40 Lvl) [place] 261672-02-28 02:07:26 Test Item Value Reference Range Interpretation Comments Sodium Lvl (test code = Sodium Lvl) 140 135-145 [place] 261672-02-28 02:07:26 Test Item Value Reference Range Interpretation Comments Potassium Lvl (test code = Potassium 3.7 3.5-5.1 Lvl) [place] 261672-02-28 02:07:26 Test Item Value Reference Range Interpretation Comments Chloride Lvl (test code = Chloride Lvl) 106 95-109 [place] 261672-02-28 02:07:26 Test Item Value Reference Range Interpretation Comments CO2 (test code = CO2) 30 24-32 [place] 261672-02-28 02:07:26 Test Item Value Reference Range Interpretation Comments Calcium Lvl (test code = Calcium Lvl) 9.5 8.5-10.5 [place] 261672-02-28 02:07:26 Test Item Value Reference Range Interpretation Comments AGAP (test code = AGAP) 7.7 10.0-20.0 [place] 261672-02-28 02:07:26 Test Item Value Reference Range Interpretation Comments eGFR (test code = eGFR) 72 [place] 970652-02-28 02:07:26 Test Item Value Reference Range Interpretation Comments WBC X 10x3 (test code = WBC X 10x3) 7.4 3.7-10.4 [place] [address]-02-28 02:07:26 Test Item Value Reference Range Interpretation Comments RBC X 10x6 (test code = RBC X 10x6) 5.06 4.70-6.10 [place] 970652-02-28 02:07:26 Test Item Value Reference Range Interpretation Comments Hgb (test code = Hgb) 14.0 14.0-18.0 [place] [address]-02-28 02:07:26 Test Item Value Reference Range Interpretation Comments Hct (test code = Hct) 43.5 42.0-54.0 [place] [address]-02-28 02:07:26 Test Item Value Reference Range Interpretation Comments MCV (test code = MCV) 85.9 80.0-94.0 [place] 970652-02-28 02:07:26 Test Item Value Reference Range Interpretation Comments MCH (test code = MCH) 27.7 pg 27.0-31.0 [place] 970652-02-28 02:07:26 Test Item Value Reference Range Interpretation Comments MCHC (test code = MCHC) 32.3 32.0-36.0 [place] [address]-02-28 02:07:26 Test Item Value Reference Range Interpretation Comments RDW (test code = RDW) 13.9 11.5-14.5 [address]02-28 02:07:26 Test Item Value Reference Range Interpretation Comments Platelet (test code = Platelet) 192 133-450 [place] 970652-02-28 02:07:26 Test Item Value Reference Range Interpretation Comments MPV (test code = MPV) 9.1 7.4-10.4 [place] 970652-02-28 02:07:26 Test Item Value Reference Range Interpretation Comments ACT (TEG) Rapid (test code = ACT (TEG) 128 s 86-118 Rapid) [place]70652-02-28 02:07:26 Test Item Value Reference Range Interpretation Comments Split Point Rapid (test code = Split 0.7 min Point Rapid) [place] [address]-02-28 02:07:26 Test Item Value Reference Range Interpretation Comments R-time Rapid (test code = R-time 0.8 min 0.4-0.7 Rapid) [place] [address]-02-28 02:07:26 Test Item Value Reference Range Interpretation Comments K-time Rapid (test code = K-time 1.1 min 0.6-2.3 Rapid) [place] [address]-02-28 02:07:26 Test Item Value Reference Range Interpretation Comments Angle Rapid (test code = Angle 76 degrees 64-80 Rapid) [place] [address]-02-28 02:07:26 Test Item Value Reference Range Interpretation Comments Max Amplitude Rapid (test code = Max 71 mm 52-71 Amplitude Rapid) [place] [address]-02-28 02:07:26 Test Item Value Reference Range Interpretation Comments G-value Rapid (test code = G-value 12.1 5.0-11.6 Rapid) [place] [address]-02-28 02:07:26 Test Item Value Reference Range Interpretation Comments Estimated % Lysis Rapid 0.8 See_Comment [Au tomated message] The (test code = Estimated syste m which generated % Lysis Rapid) this result t ransmitted reference range : <=7.5. The reference r caleb was not used to int erpret this result as normal/abnormal . [address]02-28 02:07:26 Test Item Value Reference Range Interpretation Comments PT (test code = PT) 12.5 s 12.0-14.7 [place] [address]-02-28 02:07:26 Test Item Value Reference Range Interpretation Comments INR (test code = INR) 0.94 1 0.85-1.17 [place] [address]-02-28 02:07:26 Test Item Value Reference Range Interpretation Comments PTT (test code = PTT) 29.6 s 22.9-35.8 [place] [address]-02-28 02:07:26 Test Item Value Reference Range Interpretation Comments Segs (test code = Segs) 57.2 45.0-75.0 [place] [address]-02-28 02:07:26 Test Item Value Reference Range Interpretation Comments Lymphocytes (test code = Lymphocytes) 30.9 20.0-40.0 [place] 970652-02-28 02:07:26 Test Item Value Reference Range Interpretation Comments Monocytes (test code = Monocytes) 5.6 2.0-12.0 [place] [address]-02-28 02:07:26 Test Item Value Reference Range Interpretation Comments Eosinophils (test code = 5.6 See_Comment [A utomated message] The Eosinophils) system which ge nerated this result tra nsmitted reference range : <=4.0. The reference r caleb was not used to int erpret this result as normal/abnormal . [place] 970652-02-28 02:07:26 Test Item Value Reference Range Interpretation Comments Basophils (test code = 0.7 See_Comment [Aut omated message] The Basophils) system which ge nerated this result tra nsmitted reference range : <=1.0. The reference r caleb was not used to int erpret this result as normal/abnormal . [facility] CenterKrnvuswPWGKAHJGQN6898-95-47 02:07:26 Test Item Value Reference Range Interpretation Comments Neutrophils # (test code = Neutrophils 4.3 1.5-8.1 #) [facility] CenterNzrzhkcMUXPGJIDVL4153-79-22 02:07:26 Test Item Value Reference Range Interpretation Comments Lymphocytes # (test code = Lymphocytes 2.3 1.0-5.5 #) [facility] CenterXnybskxXKMPEPQJBA3796-28-91 02:07:26 Test Item Value Reference Range Interpretation Comments Monocytes # (test code 0.4 See_Comment [Aut omated message] The = Monocytes #) system which generated this result tra nsmitted reference range : <=0.8. The reference r caleb was not used to int erpret this result as normal/abnormal . [facility] CenterBauxhauFRHPCXQAXC2667-36-13 02:07:26 Test Item Value Reference Range Interpretation Comments Eosinophils # (test code 0.4 See_Comment [A utomated message] The = Eosinophils #) system whic h generated this result tra nsmitted reference range : <=0.5. The reference r caleb was not used to int erpret this result as normal/abnormal . [facility] CenterSezntotMZSJTPFQJU1930-52-24 02:07:26 Test Item Value Reference Range Interpretation Comments Coronavirus (COVID-19) Not Detected (10/08/21 LIZBETH (test code = 8:07 PM) Coronavirus (COVID-19) LIZBETH) [facility] [id number] 01:55:00 Test Item Value Reference Range Interpretation Comments ABO/Rh (test code = ABO/Rh) O POS [facility] [id number] 01:55:00 Test Item Value Reference Range Interpretation Comments Antibody Scrn (test Negative (10/08/21 7:55 code = Antibody Scrn) PM) [id number] 01:55:00 Test Item Value Reference Range Interpretation Comments ABO/Rh (test code = ABO/Rh) O POS [facility] [id number] 01:55:00 Test Item Value Reference Range Interpretation Comments Antibody Scrn (test Negative (10/08/21 7:55 code = Antibody Scrn) PM) [place] 261672-02-22 19:46:00 Test Item Value Reference Range Interpretation Comments Glucose Lvl (test code = Glucose Lvl) 133 70-99 [place] 261672-02-22 19:46:00 Test Item Value Reference Range Interpretation Comments BUN (test code = BUN) 14 -22 [place] 261672-02-22 19:46:00 Test Item Value Reference Range Interpretation Comments Creatinine Lvl (test code = Creatinine 1.22 0.50-1.40 Lvl) [place] 261672-02-22 19:46:00 Test Item Value Reference Range Interpretation Comments Sodium Lvl (test code = Sodium Lvl) 138 135-145 [place] 261672-02-22 19:46:00 Test Item Value Reference Range Interpretation Comments Potassium Lvl (test code = Potassium 4.1 3.5-5.1 Lvl) [place] 261672-02-22 19:46:00 Test Item Value Reference Range Interpretation Comments Chloride Lvl (test code = Chloride Lvl) 108 95-109 [place] 261672-02-22 19:46:00 Test Item Value Reference Range Interpretation Comments CO2 (test code = CO2) 26 -32 [place] 261672-02-22 19:46:00 Test Item Value Reference Range Interpretation Comments Calcium Lvl (test code = Calcium Lvl) 8.6 8.5-10.5 [place] 261672-02-22 19:46:00 Test Item Value Reference Range Interpretation Comments AGAP (test code = AGAP) 8.1 10.0-20.0 [place] 261672-02-22 19:46:00 Test Item Value Reference Range Interpretation Comments eGFR (test code = eGFR) 73 [facility]RzxpxseREPIZSVTGZ9486-19-51 19:46:00 Test Item Value Reference Range Interpretation Comments WBC (test code = WBC) 6.2 3.7-10.4 [place] 970652-02-22 19:46:00 Test Item Value Reference Range Interpretation Comments RBC (test code = RBC) 4.91 4.70-6.10 [place] 970652-02-22 19:46:00 Test Item Value Reference Range Interpretation Comments Hgb (test code = Hgb) 13.7 14.0-18.0 [place] 970652-02-22 19:46:00 Test Item Value Reference Range Interpretation Comments Hct (test code = Hct) 42.1 42.0-54.0 [place] 970652-02-22 19:46:00 Test Item Value Reference Range Interpretation Comments MCV (test code = MCV) 85.8 80.0-94.0 [place] 970652-02-22 19:46:00 Test Item Value Reference Range Interpretation Comments MCH (test code = MCH) 27.9 pg 27.0-31.0 [place] 970652-02-22 19:46:00 Test Item Value Reference Range Interpretation Comments MCHC (test code = MCHC) 32.6 32.0-36.0 [place] 970652-02-22 19:46:00 Test Item Value Reference Range Interpretation Comments RDW (test code = RDW) 14.3 11.5-14.5 [place] 970652-02-22 19:46:00 Test Item Value Reference Range Interpretation Comments Platelet (test code = Platelet) 153 133-450 [place] 970652-02-22 19:46:00 Test Item Value Reference Range Interpretation Comments MPV (test code = MPV) 9.5 7.4-10.4 [place] 970652-02-22 19:46:00 Test Item Value Reference Range Interpretation Comments PT (test code = PT) 12.2 s 12.0-14.7 [place] 970652-02-22 19:46:00 Test Item Value Reference Range Interpretation Comments INR (test code = INR) 0.91 1 0.85-1.17 [place] 970652-02-22 19:46:00 Test Item Value Reference Range Interpretation Comments PTT (test code = PTT) 27.1 s 22.9-35.8 [place] 970652-02-22 19:46:00 Test Item Value Reference Range Interpretation Comments Plt Morph (test code = Normal (10/03/21 1:46 Plt Morph) PM) [place] 970652-02-22 19:46:00 Test Item Value Reference Range Interpretation Comments Segs (test code = Segs) 83.7 45.0-75.0 [place] 970652-02-22 19:46:00 Test Item Value Reference Range Interpretation Comments Lymphocytes (test code = Lymphocytes) 12.3 20.0-40.0 [place] 970652-02-22 19:46:00 Test Item Value Reference Range Interpretation Comments Monocytes (test code = Monocytes) 1.6 2.0-12.0 [place] 970652-02-22 19:46:00 Test Item Value Reference Range Interpretation Comments Eosinophils (test code = 2.0 See_Comment [A utomated message] The Eosinophils) system which ge nerated this result tra nsmitted reference range : <=4.0. The reference r caleb was not used to int erpret this result as normal/abnormal . [place] 970652-02-22 19:46:00 Test Item Value Reference Range Interpretation Comments Basophils (test code = 0.4 See_Comment [Aut omated message] The Basophils) system which ge nerated this result tra nsmitted reference range : <=1.0. The reference r caleb was not used to int erpret this result as normal/abnormal . [place] 970652-02-22 19:46:00 Test Item Value Reference Range Interpretation Comments Neutrophils # (test code = Neutrophils 5.2 1.5-8.1 #) [place] 970652-02-22 19:46:00 Test Item Value Reference Range Interpretation Comments Lymphocytes # (test code = Lymphocytes 0.8 1.0-5.5 #) [place] 970652-02-22 19:46:00 Test Item Value Reference Range Interpretation Comments Monocytes # (test code 0.1 See_Comment [Aut omated message] The = Monocytes #) system which generated this result tra nsmitted reference range : <=0.8. The reference r caleb was not used to int erpret this result as normal/abnormal . [place] 970652-02-22 19:46:00 Test Item Value Reference Range Interpretation Comments Eosinophils # (test code 0.1 See_Comment [A utomated message] The = Eosinophils #) system ic h generated this result tra nsmitted reference range : <=0.5. The reference r caleb was not used to int erpret this result as normal/abnormal . [place] 261672-02-22 19:46:00 Test Item Value Reference Range Interpretation Comments Glucose Lvl (test code = Glucose Lvl) 133 70-99 [place] 261672-02-22 19:46:00 Test Item Value Reference Range Interpretation Comments BUN (test code = BUN) 14 7-22 [place] 261672-02-22 19:46:00 Test Item Value Reference Range Interpretation Comments Creatinine Lvl (test code = Creatinine 1.22 0.50-1.40 Lvl) [place] 261672-02-22 19:46:00 Test Item Value Reference Range Interpretation Comments Sodium Lvl (test code = Sodium Lvl) 138 135-145 [place] 261672-02-22 19:46:00 Test Item Value Reference Range Interpretation Comments Potassium Lvl (test code = Potassium 4.1 3.5-5.1 Lvl) [place] 261672-02-22 19:46:00 Test Item Value Reference Range Interpretation Comments Chloride Lvl (test code = Chloride Lvl) 108 95-109 [place] 261672-02-22 19:46:00 Test Item Value Reference Range Interpretation Comments CO2 (test code = CO2) 26 24-32 [place] 261672-02-22 19:46:00 Test Item Value Reference Range Interpretation Comments Calcium Lvl (test code = Calcium Lvl) 8.6 8.5-10.5 [place] 261672-02-22 19:46:00 Test Item Value Reference Range Interpretation Comments AGAP (test code = AGAP) 8.1 10.0-20.0 [place] 261672-02-22 19:46:00 Test Item Value Reference Range Interpretation Comments eGFR (test code = eGFR) 73 [place] 970652-02-22 19:46:00 Test Item Value Reference Range Interpretation Comments WBC (test code = WBC) 6.2 3.7-10.4 [place] 970652-02-22 19:46:00 Test Item Value Reference Range Interpretation Comments RBC (test code = RBC) 4.91 4.70-6.10 [place] 970652-02-22 19:46:00 Test Item Value Reference Range Interpretation Comments Hgb (test code = Hgb) 13.7 14.0-18.0 [facility] CenterAkxitejSBTMXGTENT2899-81-50 19:46:00 Test Item Value Reference Range Interpretation Comments Hct (test code = Hct) 42.1 42.0-54.0 [place] 970652-02-22 19:46:00 Test Item Value Reference Range Interpretation Comments MCV (test code = MCV) 85.8 80.0-94.0 [place] 970652-02-22 19:46:00 Test Item Value Reference Range Interpretation Comments MCH (test code = MCH) 27.9 pg 27.0-31.0 [facility] CenterFizhydiUUDYVCTIOW2841-54-60 19:46:00 Test Item Value Reference Range Interpretation Comments MCHC (test code = MCHC) 32.6 32.0-36.0 [facility] CenterLfwmkapFIXPIBVKSY0012-72-55 19:46:00 Test Item Value Reference Range Interpretation Comments RDW (test code = RDW) 14.3 11.5-14.5 [place] 970652-02-22 19:46:00 Test Item Value Reference Range Interpretation Comments Platelet (test code = Platelet) 153 133-450 [facility] CenterBymqouvLUWFOTMCIQ9121-23-46 19:46:00 Test Item Value Reference Range Interpretation Comments MPV (test code = MPV) 9.5 7.4-10.4 [place] 970652-02-22 19:46:00 Test Item Value Reference Range Interpretation Comments PT (test code = PT) 12.2 s 12.0-14.7 [place] 970652-02-22 19:46:00 Test Item Value Reference Range Interpretation Comments INR (test code = INR) 0.91 1 0.85-1.17 [place] 970652-02-22 19:46:00 Test Item Value Reference Range Interpretation Comments PTT (test code = PTT) 27.1 s 22.9-35.8 [place] 970652-02-22 19:46:00 Test Item Value Reference Range Interpretation Comments Plt Morph (test code = Normal (10/03/21 1:46 Plt Morph) PM) [place] 970652-02-22 19:46:00 Test Item Value Reference Range Interpretation Comments Segs (test code = Segs) 83.7 45.0-75.0 [place] 970652-02-22 19:46:00 Test Item Value Reference Range Interpretation Comments Lymphocytes (test code = Lymphocytes) 12.3 20.0-40.0 [place] 970652-02-22 19:46:00 Test Item Value Reference Range Interpretation Comments Monocytes (test code = Monocytes) 1.6 2.0-12.0 [place] [address]-02-22 19:46:00 Test Item Value Reference Range Interpretation Comments Eosinophils (test code = 2.0 See_Comment [A utomated message] The Eosinophils) system which ge nerated this result tra nsmitted reference range : <=4.0. The reference r caleb was not used to int erpret this result as normal/abnormal . [address]02-22 19:46:00 Test Item Value Reference Range Interpretation Comments Basophils (test code = 0.4 See_Comment [Aut omated message] The Basophils) system which ge nerated this result tra nsmitted reference range : <=1.0. The reference r caleb was not used to int erpret this result as normal/abnormal . [place] 970652-02-22 19:46:00 Test Item Value Reference Range Interpretation Comments Neutrophils # (test code = Neutrophils 5.2 1.5-8.1 #) [place] 970652-02-22 19:46:00 Test Item Value Reference Range Interpretation Comments Lymphocytes # (test code = Lymphocytes 0.8 1.0-5.5 #) [place] 970652-02-22 19:46:00 Test Item Value Reference Range Interpretation Comments Monocytes # (test code 0.1 See_Comment [Aut omated message] The = Monocytes #) system which generated this result tra nsmitted reference range : <=0.8. The reference r caleb was not used to int erpret this result as normal/abnormal . [place] 970652-02-22 19:46:00 Test Item Value Reference Range Interpretation Comments Eosinophils # (test code 0.1 See_Comment [A utomated message] The = Eosinophils #) system whic h generated this result tra nsmitted reference range : <=0.5. The reference r caleb was not used to int erpret this result as normal/abnormal . [facility] [id number] 17:31:00 Test Item Value Reference Range Interpretation Comments ABO/Rh (test code = ABO/Rh) O POS [facility] [id number] 17:31:00 Test Item Value Reference Range Interpretation Comments Antibody Scrn (test Negative (10/02/21 code = Antibody Scrn) 11:31 AM) [facility]2022-02-21 17:31:00 Test Item Value Reference Range Interpretation Comments Glucose Lvl (test code = Glucose Lvl) 92 70-99 [facility]2022-02-21 17:31:00 Test Item Value Reference Range Interpretation Comments BUN (test code = BUN) 17 - [facility]2022-02-21 17:31:00 Test Item Value Reference Range Interpretation Comments Creatinine Lvl (test code = Creatinine 1.21 0.50-1.40 Lvl) [facility]2022-02-21 17:31:00 Test Item Value Reference Range Interpretation Comments Sodium Lvl (test code = Sodium Lvl) 140 135-145 [facility] [id number] 17:31:00 Test Item Value Reference Range Interpretation Comments Potassium Lvl (test code = Potassium 4.2 3.5-5.1 Lvl) [facility]2022-02-21 17:31:00 Test Item Value Reference Range Interpretation Comments Chloride Lvl (test code = Chloride Lvl) 108 95-109 [facility]2022-02-21 17:31:00 Test Item Value Reference Range Interpretation Comments CO2 (test code = CO2) 26 24-32 [facility]2022-02-21 17:31:00 Test Item Value Reference Range Interpretation Comments Calcium Lvl (test code = Calcium Lvl) 9.4 8.5-10.5 [facility]2022-02-21 17:31:00 Test Item Value Reference Range Interpretation Comments AGAP (test code = AGAP) 10.2 10.0-20.0 [facility]2022-02-21 17:31:00 Test Item Value Reference Range Interpretation Comments eGFR (test code = eGFR) 74 [facility] CenterCkxacpiGGWKQKTXGO3169-13-60 17:31:00 Test Item Value Reference Range Interpretation Comments PTT (test code = PTT) 28.1 s 22.9-35.8 [place] 970652-02-21 17:31:00 Test Item Value Reference Range Interpretation Comments PT (test code = PT) 11.8 s 12.0-14.7 [place] 970652-02-21 17:31:00 Test Item Value Reference Range Interpretation Comments INR (test code = INR) 0.87 1 0.85-1.17 [place] 970652-02-21 17:31:00 Test Item Value Reference Range Interpretation Comments WBC (test code = WBC) 5.4 3.7-10.4 [place] 970652-02-21 17:31:00 Test Item Value Reference Range Interpretation Comments RBC (test code = RBC) 4.90 4.70-6.10 [place] 970652-02-21 17:31:00 Test Item Value Reference Range Interpretation Comments Hgb (test code = Hgb) 13.7 14.0-18.0 [place] 970652-02-21 17:31:00 Test Item Value Reference Range Interpretation Comments Hct (test code = Hct) 42.0 42.0-54.0 [place] 970652-02-21 17:31:00 Test Item Value Reference Range Interpretation Comments MCV (test code = MCV) 85.6 80.0-94.0 [place] 970652-02-21 17:31:00 Test Item Value Reference Range Interpretation Comments MCH (test code = MCH) 27.9 pg 27.0-31.0 [place] 970652-02-21 17:31:00 Test Item Value Reference Range Interpretation Comments MCHC (test code = MCHC) 32.6 32.0-36.0 [place] 970652-02-21 17:31:00 Test Item Value Reference Range Interpretation Comments RDW (test code = RDW) 14.1 11.5-14.5 [place] 970652-02-21 17:31:00 Test Item Value Reference Range Interpretation Comments Platelet (test code = Platelet) 173 133-450 [facility] CenterGwduuxsTOGJOCPAOX7921-82-46 17:31:00 Test Item Value Reference Range Interpretation Comments MPV (test code = MPV) 10.1 7.4-10.4 [place] 970652-02-21 17:31:00 Test Item Value Reference Range Interpretation Comments Segs (test code = Segs) 54.1 45.0-75.0 [place] 970652-02-21 17:31:00 Test Item Value Reference Range Interpretation Comments Lymphocytes (test code = Lymphocytes) 30.9 20.0-40.0 [place] 970652-02-21 17:31:00 Test Item Value Reference Range Interpretation Comments Monocytes (test code = Monocytes) 6.7 2.0-12.0 [place] 970652-02-21 17:31:00 Test Item Value Reference Range Interpretation Comments Eosinophils (test code = 7.7 See_Comment [A utomated message] The Eosinophils) system which ge nerated this result tra nsmitted reference range : <=4.0. The reference r caleb was not used to int erpret this result as normal/abnormal . [place] 970652-02-21 17:31:00 Test Item Value Reference Range Interpretation Comments Basophils (test code = 0.6 See_Comment [Aut omated message] The Basophils) system which ge nerated this result tra nsmitted reference range : <=1.0. The reference r caleb was not used to int erpret this result as normal/abnormal . [place] 970652-02-21 17:31:00 Test Item Value Reference Range Interpretation Comments Neutrophils # (test code = Neutrophils 2.9 1.5-8.1 #) [place] 970652-02-21 17:31:00 Test Item Value Reference Range Interpretation Comments Lymphocytes # (test code = Lymphocytes 1.7 1.0-5.5 #) [place] [address]-02-21 17:31:00 Test Item Value Reference Range Interpretation Comments Monocytes # (test code 0.4 See_Comment [Aut omated message] The = Monocytes #) system which generated this result tra nsmitted reference range : <=0.8. The reference r caleb was not used to int erpret this result as normal/abnormal . [place] [address]-02-21 17:31:00 Test Item Value Reference Range Interpretation Comments Eosinophils # (test code 0.4 See_Comment [A utomated message] The = Eosinophils #) system whic h generated this result tra nsmitted reference range : <=0.5. The reference r caleb was not used to int erpret this result as normal/abnormal . [facility] KmeaeujVVAQZMKCSP8389-43-69 17:31:00 Test Item Value Reference Range Interpretation Comments Coronavirus (COVID-19) Not Detected (10/02/21 LIZBETH (test code = 11:31 AM) Coronavirus (COVID-19) LIZBETH) [facility] [id number] 17:31:00 Test Item Value Reference Range Interpretation Comments Hgb A1C (test code = Hgb A1C) 5.7 [facility] [id number] 17:31:00 Test Item Value Reference Range Interpretation Comments ABO/Rh (test code = ABO/Rh) O POS [facility] [id number] 17:31:00 Test Item Value Reference Range Interpretation Comments Antibody Scrn (test Negative (10/02/21 code = Antibody Scrn) 11:31 AM) [facility] [id number] 17:31:00 Test Item Value Reference Range Interpretation Comments Glucose Lvl (test code = Glucose Lvl) 92 70-99 [facility] Six32022-02-21 17:31:00 Test Item Value Reference Range Interpretation Comments BUN (test code = BUN) 17 - [facility] [id number] 17:31:00 Test Item Value Reference Range Interpretation Comments Creatinine Lvl (test code = Creatinine 1.21 0.50-1.40 Lvl) [facility] [id number] 17:31:00 Test Item Value Reference Range Interpretation Comments Sodium Lvl (test code = Sodium Lvl) 140 135-145 [facility] Six32022-02-21 17:31:00 Test Item Value Reference Range Interpretation Comments Potassium Lvl (test code = Potassium 4.2 3.5-5.1 Lvl) [facility]2022-02-21 17:31:00 Test Item Value Reference Range Interpretation Comments Chloride Lvl (test code = Chloride Lvl) 108 95-109 [facility] Six32022-02-21 17:31:00 Test Item Value Reference Range Interpretation Comments CO2 (test code = CO2) -32 [place] 261672-02-21 17:31:00 Test Item Value Reference Range Interpretation Comments Calcium Lvl (test code = Calcium Lvl) 9.4 8.5-10.5 [place] 261672-02-21 17:31:00 Test Item Value Reference Range Interpretation Comments AGAP (test code = AGAP) 10.2 10.0-20.0 [place] 261672-02-21 17:31:00 Test Item Value Reference Range Interpretation Comments eGFR (test code = eGFR) 74 [place] 970652-02-21 17:31:00 Test Item Value Reference Range Interpretation Comments PTT (test code = PTT) 28.1 s 22.9-35.8 [place] [address]-02-21 17:31:00 Test Item Value Reference Range Interpretation Comments PT (test code = PT) 11.8 s 12.0-14.7 [place] 970652-02-21 17:31:00 Test Item Value Reference Range Interpretation Comments INR (test code = INR) 0.87 1 0.85-1.17 [place] 970652-02-21 17:31:00 Test Item Value Reference Range Interpretation Comments WBC (test code = WBC) 5.4 3.7-10.4 [place] [address]-02-21 17:31:00 Test Item Value Reference Range Interpretation Comments RBC (test code = RBC) 4.90 4.70-6.10 [place] [address]-02-21 17:31:00 Test Item Value Reference Range Interpretation Comments Hgb (test code = Hgb) 13.7 14.0-18.0 [place] [address]-02-21 17:31:00 Test Item Value Reference Range Interpretation Comments Hct (test code = Hct) 42.0 42.0-54.0 [place] [address]-02-21 17:31:00 Test Item Value Reference Range Interpretation Comments MCV (test code = MCV) 85.6 80.0-94.0 [place] [address]-02-21 17:31:00 Test Item Value Reference Range Interpretation Comments MCH (test code = MCH) 27.9 pg 27.0-31.0 [place] 970652-02-21 17:31:00 Test Item Value Reference Range Interpretation Comments MCHC (test code = MCHC) 32.6 32.0-36.0 [place] 970652-02-21 17:31:00 Test Item Value Reference Range Interpretation Comments RDW (test code = RDW) 14.1 11.5-14.5 [place] 970652-02-21 17:31:00 Test Item Value Reference Range Interpretation Comments Platelet (test code = Platelet) 173 133-450 [place] 970652-02-21 17:31:00 Test Item Value Reference Range Interpretation Comments MPV (test code = MPV) 10.1 7.4-10.4 [place] 970652-02-21 17:31:00 Test Item Value Reference Range Interpretation Comments Segs (test code = Segs) 54.1 45.0-75.0 [place] 970652-02-21 17:31:00 Test Item Value Reference Range Interpretation Comments Lymphocytes (test code = Lymphocytes) 30.9 20.0-40.0 [place] 970652-02-21 17:31:00 Test Item Value Reference Range Interpretation Comments Monocytes (test code = Monocytes) 6.7 2.0-12.0 [place] 970652-02-21 17:31:00 Test Item Value Reference Range Interpretation Comments Eosinophils (test code = 7.7 See_Comment [A utomated message] The Eosinophils) system which ge nerated this result tra nsmitted reference range : <=4.0. The reference r caleb was not used to int erpret this result as normal/abnormal . [facility] CenterWaofgeaDNKBWUYZBO3246-98-91 17:31:00 Test Item Value Reference Range Interpretation Comments Basophils (test code = 0.6 See_Comment [Aut omated message] The Basophils) system which ge nerated this result tra nsmitted reference range : <=1.0. The reference r caleb was not used to int erpret this result as normal/abnormal . [place] 970652-02-21 17:31:00 Test Item Value Reference Range Interpretation Comments Neutrophils # (test code = Neutrophils 2.9 1.5-8.1 #) [place] 970652-02-21 17:31:00 Test Item Value Reference Range Interpretation Comments Lymphocytes # (test code = Lymphocytes 1.7 1.0-5.5 #) [facility] CenterDapvzrwCZJOGKQHIY0928-37-65 17:31:00 Test Item Value Reference Range Interpretation Comments Monocytes # (test code 0.4 See_Comment [Aut omated message] The = Monocytes #) system which generated this result tra nsmitted reference range : <=0.8. The reference r caleb was not used to int erpret this result as normal/abnormal . [facility] CenterGwnzjqnPGNKQFHRXQ9435-32-94 17:31:00 Test Item Value Reference Range Interpretation Comments Eosinophils # (test code 0.4 See_Comment [A utomated message] The = Eosinophils #) system whic h generated this result tra nsmitted reference range : <=0.5. The reference r caleb was not used to int erpret this result as normal/abnormal . [facility]xrZGJZAZMHDA7822-35-64 17:31:00 Test Item Value Reference Range Interpretation Comments Coronavirus (COVID-19) Not Detected (10/02/21 ILZBETH (test code = 11:31 AM) Coronavirus (COVID-19) LIZBETH) [facility] [id number] 17:31:00 Test Item Value Reference Range Interpretation Comments Hgb A1C (test code = Hgb A1C) 5.7 [facility] CenterPkaeqwlINRNWCFDPI8758-10-15 07:37:00 Test Item Value Reference Range Interpretation Comments Sed Rate (test code = 2 See_Comment [Auto mated message] The Sed Rate) system which ge nerated this result transmit leydi reference range : <=15. The reference range was not used to interpr et this result as krishna l/abnormal. [facility] CenterJemcdwvYQWYUIXXFL8081-63-26 07:37:00 Test Item Value Reference Range Interpretation Comments C-REACTIVE PROTEIN (test code = 8.4 C-REACTIVE PROTEIN) [place] 970651-09-30 07:37:00 Test Item Value Reference Range Interpretation Comments Sed Rate (test code = 2 See_Comment [Auto mated message] The Sed Rate) system which ge nerated this result transmit leydi reference range : <=15. The reference range was not used to interpr et this result as krishna l/abnormal. [place] 410491-09-30 07:37:00 Test Item Value Reference Range Interpretation Comments C-REACTIVE PROTEIN (test code = 8.4 C-REACTIVE PROTEIN) [place] [id number] 01:10:00 Test Item Value Reference Range Interpretation Comments Glucose Lvl (test code = Glucose Lvl) 115 70-99 [place] 261671-09-30 01:10:00 Test Item Value Reference Range Interpretation Comments BUN (test code = BUN) 13 7-22 [place] 261671-09-30 01:10:00 Test Item Value Reference Range Interpretation Comments Creatinine Lvl (test code = Creatinine 1.21 0.50-1.40 Lvl) [place] 261671-09-30 01:10:00 Test Item Value Reference Range Interpretation Comments Sodium Lvl (test code = Sodium Lvl) 141 135-145 [place] 261671-09-30 01:10:00 Test Item Value Reference Range Interpretation Comments Potassium Lvl (test code = Potassium 3.8 3.5-5.1 Lvl) [place] 261671-09-30 01:10:00 Test Item Value Reference Range Interpretation Comments Chloride Lvl (test code = Chloride Lvl) 110 95-109 [place] 261671-09-30 01:10:00 Test Item Value Reference Range Interpretation Comments CO2 (test code = CO2) 25 24-32 [place] 261671-09-30 01:10:00 Test Item Value Reference Range Interpretation Comments Calcium Lvl (test code = Calcium Lvl) 9.1 8.5-10.5 [place] 261671-09-30 01:10:00 Test Item Value Reference Range Interpretation Comments AGAP (test code = AGAP) 9.8 10.0-20.0 [place] 261671-09-30 01:10:00 Test Item Value Reference Range Interpretation Comments eGFR (test code = eGFR) 74 [place] 970651-09-30 01:10:00 Test Item Value Reference Range Interpretation Comments WBC X 10x3 (test code = WBC X 10x3) 5.9 3.7-10.4 [place] 970651-09-30 01:10:00 Test Item Value Reference Range Interpretation Comments RBC X 10x6 (test code = RBC X 10x6) 4.92 4.70-6.10 [place] 970651-09-30 01:10:00 Test Item Value Reference Range Interpretation Comments Hgb (test code = Hgb) 13.8 14.0-18.0 [facility]IE[facility]AY[facility]NA8909[facility]36-22 01:10:00 Test Item Value Reference Range Interpretation Comments Hct (test code = Hct) 41.8 42.0-54.0 [place] 970651-09-30 01:10:00 Test Item Value Reference Range Interpretation Comments MCV (test code = MCV) 84.9 80.0-94.0 [facility] CenterLwdookqHWQUAHDFBV4989-09-78 01:10:00 Test Item Value Reference Range Interpretation Comments MCH (test code = MCH) 28.0 pg 27.0-31.0 [facility] CenterZkhdtyjICQSYFPSMA7370-83-73 01:10:00 Test Item Value Reference Range Interpretation Comments MCHC (test code = MCHC) 33.0 32.0-36.0 [facility] CenterEojuqvlQFGZEWQJNX7636-94-94 01:10:00 Test Item Value Reference Range Interpretation Comments RDW (test code = RDW) 14.0 11.5-14.5 [facility] CenterSecxmuiHQUDPAJGHS6736-53-70 01:10:00 Test Item Value Reference Range Interpretation Comments Platelet (test code = Platelet) 171 133-450 [facility] CenterVbibjkaZOEPPGFKBJ2329-34-51 01:10:00 Test Item Value Reference Range Interpretation Comments MPV (test code = MPV) 8.8 7.4-10.4 [place] 970651-09-30 01:10:00 Test Item Value Reference Range Interpretation Comments Segs (test code = Segs) 42.2 45.0-75.0 [facility] CenterLjjkgkqIMCFYQFDUC7691-66-96 01:10:00 Test Item Value Reference Range Interpretation Comments Lymphocytes (test code = Lymphocytes) 37.9 20.0-40.0 [place] 970651-09-30 01:10:00 Test Item Value Reference Range Interpretation Comments Monocytes (test code = Monocytes) 7.0 2.0-12.0 [facility] CenterRaxczzlFQBAGIQHEG4083-27-43 01:10:00 Test Item Value Reference Range Interpretation Comments Eosinophils (test code = 11.6 See_Comment [A utomated message] The Eosinophils) system which ge nerated this result tra nsmitted reference range : <=4.0. The reference r caleb was not used to int erpret this result as normal/abnormal . [place] 970651-09-30 01:10:00 Test Item Value Reference Range Interpretation Comments Basophils (test code = 1.3 See_Comment [Aut omated message] The Basophils) system which ge nerated this result tra nsmitted reference range : <=1.0. The reference r caleb was not used to int erpret this result as normal/abnormal . [place] 970651-09-30 01:10:00 Test Item Value Reference Range Interpretation Comments Neutrophils # (test code = Neutrophils 2.5 1.5-8.1 #) [place] 970651-09-30 01:10:00 Test Item Value Reference Range Interpretation Comments Lymphocytes # (test code = Lymphocytes 2.2 1.0-5.5 #) [place] 970651-09-30 01:10:00 Test Item Value Reference Range Interpretation Comments Monocytes # (test code 0.4 See_Comment [Aut omated message] The = Monocytes #) system which generated this result tra nsmitted reference range : <=0.8. The reference r caleb was not used to int erpret this result as normal/abnormal . [place] 970651-09-30 01:10:00 Test Item Value Reference Range Interpretation Comments Eosinophils # (test code 0.7 See_Comment [A utomated message] The = Eosinophils #) system whic h generated this result tra nsmitted reference range : <=0.5. The reference r caleb was not used to int erpret this result as normal/abnormal . [place] 970651-09-30 01:10:00 Test Item Value Reference Range Interpretation Comments Basophils # (test code 0.1 See_Comment [Aut omated message] The = Basophils #) system which generated this result tra nsmitted reference range : <=0.2. The reference r caleb was not used to int erpret this result as normal/abnormal . [place] 261671-09-30 01:10:00 Test Item Value Reference Range Interpretation Comments Glucose Lvl (test code = Glucose Lvl) 115 70-99 [place] 261671-09-30 01:10:00 Test Item Value Reference Range Interpretation Comments BUN (test code = BUN) 13 7-22 [place] 261671-09-30 01:10:00 Test Item Value Reference Range Interpretation Comments Creatinine Lvl (test code = Creatinine 1.21 0.50-1.40 Lvl) [place] 261671-09-30 01:10:00 Test Item Value Reference Range Interpretation Comments Sodium Lvl (test code = Sodium Lvl) 141 135-145 [place] 261671-09-30 01:10:00 Test Item Value Reference Range Interpretation Comments Potassium Lvl (test code = Potassium 3.8 3.5-5.1 Lvl) [place] 261671-09-30 01:10:00 Test Item Value Reference Range Interpretation Comments Chloride Lvl (test code = Chloride Lvl) 110 95-109 [place] 261671-09-30 01:10:00 Test Item Value Reference Range Interpretation Comments CO2 (test code = CO2) 25 24-32 [place] 261671-09-30 01:10:00 Test Item Value Reference Range Interpretation Comments Calcium Lvl (test code = Calcium Lvl) 9.1 8.5-10.5 [place] 261671-09-30 01:10:00 Test Item Value Reference Range Interpretation Comments AGAP (test code = AGAP) 9.8 10.0-20.0 [place] 261671-09-30 01:10:00 Test Item Value Reference Range Interpretation Comments eGFR (test code = eGFR) 74 [place] 970651-09-30 01:10:00 Test Item Value Reference Range Interpretation Comments WBC X 10x3 (test code = WBC X 10x3) 5.9 3.7-10.4 [place] 970651-09-30 01:10:00 Test Item Value Reference Range Interpretation Comments RBC X 10x6 (test code = RBC X 10x6) 4.92 4.70-6.10 [place] 970651-09-30 01:10:00 Test Item Value Reference Range Interpretation Comments Hgb (test code = Hgb) 13.8 14.0-18.0 [place] 970651-09-30 01:10:00 Test Item Value Reference Range Interpretation Comments Hct (test code = Hct) 41.8 42.0-54.0 [place] 970651-09-30 01:10:00 Test Item Value Reference Range Interpretation Comments MCV (test code = MCV) 84.9 80.0-94.0 [place] 970651-09-30 01:10:00 Test Item Value Reference Range Interpretation Comments MCH (test code = MCH) 28.0 pg 27.0-31.0 [place] 970651-09-30 01:10:00 Test Item Value Reference Range Interpretation Comments MCHC (test code = MCHC) 33.0 32.0-36.0 [facility] CenterOhlhzpoICCWNGHSNQ5244-13-53 01:10:00 Test Item Value Reference Range Interpretation Comments RDW (test code = RDW) 14.0 11.5-14.5 [place] 970651-09-30 01:10:00 Test Item Value Reference Range Interpretation Comments Platelet (test code = Platelet) 171 133-450 [facility] CenterIyenbgcIUOJSTHHON6527-29-25 01:10:00 Test Item Value Reference Range Interpretation Comments MPV (test code = MPV) 8.8 7.4-10.4 [place] 970651-09-30 01:10:00 Test Item Value Reference Range Interpretation Comments Segs (test code = Segs) 42.2 45.0-75.0 [facility] CenterBurgtbmDJOMAWVBRG0407-34-93 01:10:00 Test Item Value Reference Range Interpretation Comments Lymphocytes (test code = Lymphocytes) 37.9 20.0-40.0 [place] 970651-09-30 01:10:00 Test Item Value Reference Range Interpretation Comments Monocytes (test code = Monocytes) 7.0 2.0-12.0 [place] 970651-09-30 01:10:00 Test Item Value Reference Range Interpretation Comments Eosinophils (test code = 11.6 See_Comment [A utomated message] The Eosinophils) system which ge nerated this result tra nsmitted reference range : <=4.0. The reference r caleb was not used to int erpret this result as normal/abnormal . [facility] CenterQiapkakPUPVVRWPTB3289-35-54 01:10:00 Test Item Value Reference Range Interpretation Comments Basophils (test code = 1.3 See_Comment [Aut omated message] The Basophils) system which ge nerated this result tra nsmitted reference range : <=1.0. The reference r caleb was not used to int erpret this result as normal/abnormal . [facility] CenterSnnkjsqEIYCXQUGBE2016-27-91 01:10:00 Test Item Value Reference Range Interpretation Comments Neutrophils # (test code = Neutrophils 2.5 1.5-8.1 #) [facility] CenterJfprnbmWVTAOBCNEI0239-13-23 01:10:00 Test Item Value Reference Range Interpretation Comments Lymphocytes # (test code = Lymphocytes 2.2 1.0-5.5 #) [place] 970651-09-30 01:10:00 Test Item Value Reference Range Interpretation Comments Monocytes # (test code 0.4 See_Comment [Aut omated message] The = Monocytes #) system which generated this result tra nsmitted reference range : <=0.8. The reference r caleb was not used to int erpret this result as normal/abnormal . [place] 970651-09-30 01:10:00 Test Item Value Reference Range Interpretation Comments Eosinophils # (test code 0.7 See_Comment [A utomated message] The = Eosinophils #) system whic h generated this result tra nsmitted reference range : <=0.5. The reference r caleb was not used to int erpret this result as normal/abnormal . [facility] CenterItandumQMUJGSJZSS9536-64-28 01:10:00 Test Item Value Reference Range Interpretation Comments Basophils # (test code 0.1 See_Comment [Aut omated message] The = Basophils #) system which generated this result tra nsmitted reference range : <=0.2. The reference r caleb was not used to int erpret this result as normal/abnormal . [facility]2018-11-27 18:20:00 Test Item Value Reference Range Interpretation Comments eGFR (test code = eGFR) 90 [facility]2018-11-27 18:20:00 Test Item Value Reference Range Interpretation Comments AGAP (test code = AGAP) 4.2 10.0-20.0 [facility]2018-11-27 18:20:00 Test Item Value Reference Range Interpretation Comments Calcium Lvl (test code = Calcium Lvl) 8.6 8.5-10.5 [facility]2018-11-27 18:20:00 Test Item Value Reference Range Interpretation Comments CO2 (test code = CO2) 30 24-32 [id number] 18:20:00 Test Item Value Reference Range Interpretation Comments Chloride Lvl (test code = Chloride Lvl) 109 95-109 [facility]2018-11-27 18:20:00 Test Item Value Reference Range Interpretation Comments Potassium Lvl (test code = Potassium 4.2 3.5-5.1 Lvl) [facility]2018-11-27 18:20:00 Test Item Value Reference Range Interpretation Comments Sodium Lvl (test code = Sodium Lvl) 139 135-145 [facility]2018-11-27 18:20:00 Test Item Value Reference Range Interpretation Comments Glucose Lvl (test code = Glucose Lvl) 111 70-99 [facility]2018-11-27 18:20:00 Test Item Value Reference Range Interpretation Comments BUN (test code = BUN) 18 7-22 [facility]2018-11-27 18:20:00 Test Item Value Reference Range Interpretation Comments Creatinine Lvl (test code = Creatinine 1.18 0.50-1.40 Lvl) [facility]2018-11-27 18:20:00 Test Item Value Reference Range Interpretation Comments eGFR (test code = eGFR) 90 [facility]2018-11-27 18:20:00 Test Item Value Reference Range Interpretation Comments AGAP (test code = AGAP) 4.2 10.0-20.0 [facility]2018-11-27 18:20:00 Test Item Value Reference Range Interpretation Comments Calcium Lvl (test code = Calcium Lvl) 8.6 8.5-10.5 [facility]2018-11-27 18:20:00 Test Item Value Reference Range Interpretation Comments CO2 (test code = CO2) 30 24-32 [facility]2018-11-27 18:20:00 Test Item Value Reference Range Interpretation Comments Chloride Lvl (test code = Chloride Lvl) 109 95-109 [facility]2018-11-27 18:20:00 Test Item Value Reference Range Interpretation Comments Potassium Lvl (test code = Potassium 4.2 3.5-5.1 Lvl) [facility]2018-11-27 18:20:00 Test Item Value Reference Range Interpretation Comments Sodium Lvl (test code = Sodium Lvl) 139 135-145 [place] 490068-11-27 18:20:00 Test Item Value Reference Range Interpretation Comments Glucose Lvl (test code = Glucose Lvl) 111 70-99 [facility]2018-11-27 18:20:00 Test Item Value Reference Range Interpretation Comments BUN (test code = BUN) 18 7-22 [facility]2018-11-27 18:20:00 Test Item Value Reference Range Interpretation Comments Creatinine Lvl (test code = Creatinine 1.18 0.50-1.40 Lvl) [facility][U] XRAY ELBOW 2 VWS RIGHT [id number] 15:57:00Images acquired, not reported on this accession number.[facility][U] XRAY WRIST MIN 3 VWS RIGHT [id number] 15:57:00Images acquired, not reported on this accession number.[facility]
--- NOTE | 2023-05-31 22:41 | ER ---
Nurse's Notes [facility] Name: Terry Akins Sr Age: 42 yrs Sex: Male : 1980 Arrival Date: 05/31/2023 Time: 22:22 Bed IW1 Private MD: Diagnosis: Dental caries, unspecified;Acute pain, not elsewhere classified Presentation: 05/31 22:26 Chief complaint: Patient states: "I've been having left tooth pain for the past few mb9 days. I've taken Amoxicillin, Ibuprofen, Tylenol, and gabapentin for it. I have a dentist appointment at the end of next week.". Coronavirus screen: Vaccine status: Patient reports receiving the 2nd dose of the covid vaccine. Ebola Screen: No symptoms or risks identified at this time. Initial Sepsis Screen: Does the patient meet any 2 criteria? No. Patient's initial sepsis screen is negative. Does the patient have a suspected source of infection? No. Patient's initial sepsis screen is negative. Risk Assessment: Do you want to hurt yourself or someone else? Patient reports no desire to harm self or others. Onset of symptoms was May 31, 2023. 22:26 Method Of Arrival: Ambulatory mb9 22:26 Acuity: SARITHA 4 mb9 Triage Assessment: 22:29 General: Appears uncomfortable, Behavior is cooperative. Pain: Complains of pain in mb9 tooth Pain currently is 101 out of 10 on a pain scale. Quality of pain is described as throbbing. EENT: Poor dentition noted. EENT: Reports pain in tooth. Neuro: Navarro Agitation-Sedation Scale (RASS): 0 - Alert and Calm Level of Consciousness is awake, alert, obeys commands, Oriented to person, place, time, situation, Appropriate for age. Cardiovascular: Patient's skin is warm and dry. Respiratory: Airway is patent Respiratory effort is even, unlabored, Respiratory pattern is regular, symmetrical. GI: No signs and/or symptoms were reported involving the gastrointestinal system. : No signs and/or symptoms were reported regarding the genitourinary system. Derm: Skin is pink, warm \\T\\ dry. Musculoskeletal: Range of motion: intact in all extremities. Historical: - Allergies: 22:28 No Known Allergies; mb9 - Home Meds: 22:28 gabapentin oral [Active]; mb9 - PMHx: 22:28 Hypertensive disorder; Migraine; mb9 - PSHx: 22:28 Appendectomy; carpal tunnel right; hernia; left hand tendonitis; Mastoid surgery; Nerve mb9 transplantion; shunt; - Immunization history:: Adult Immunizations up to date. - Social history:: Smoking status: Patient denies any tobacco usage or history of. Screenin:31 [facility] ED Fall Risk Assessment (Adult) History of falling in the last 3 months, mb9 including since admission No falls in past 3 months (0 pts) Confusion or Disorientation No (0 pts) Intoxicated or Sedated No (0 pts) Impaired Gait No (0 pts) Mobility Assist Device Used No (0 pt) Altered Elimination No (0 pt) Score/Fall Risk Level 0 - 2 = Low Risk Oriented to surroundings, Maintained a safe environment, Educated pt \\T\\ family on fall prevention, incl call for assistance when getting out of bed. Abuse screen: Denies threats or abuse. Nutritional screening: No deficits noted. Tuberculosis screening: No symptoms or risk factors identified. Assessment: 22:30 Reassessment: see triage assessment. mb9 Vital Signs: 22:26 BP 164 / 91; Pulse 81; Resp 18; Temp 98.2(T); Pulse Ox 100% on R/A; Weight 145.15 kg; mb9 Height 6 ft. 3 in. ; Pain 10/10; 22:26 Body Mass Index 40.00 (145.15 kg, 190.5 cm) mb9 22:26 Pain Scale: Adult mb9 ED Course: 22:25 Patient arrived in ED. ag3 22:26 Jenn Obregon FNP-C [facility] snw 22:26 Leo Smith MD is Attending Physician. snw 22:28 Triage completed. mb9 22:28 Arm band placed on. mb9 22:31 Patient has correct armband on for positive identification. mb9 22:40 Ghislaine Arredondo RN is Primary Nurse. mb9 22:47 No provider procedures requiring assistance completed. Patient did not have IV access mb9 during this emergency room visit. Administered Medications: 22:40 Drug: HYDROcodone-acetaminophen PO 5 mg-325 mg 1 tabs PO once Route: PO; mb9 22:47 Follow up: Response: No adverse reaction mb9 22:40 Drug: Cyclobenzaprine PO 10 mg PO once Route: PO; mb9 22:47 Follow up: Response: No adverse reaction mb9 Medication: 22:31 VIS not applicable for this client. mb9 Outcome: 22:41 Discharge ordered by . joby 22:47 Discharged to home ambulatory, with family, mb9 22:47 Condition: stable 22:47 Discharge instructions given to patient, family, Instructed on discharge instructions, follow up and referral plans. Demonstrated understanding of instructions, follow-up care, medications, Prescriptions given X 2, 22:47 Patient left the ED. mb9 Signatures: Jenn Obregon, ASBESTOS COVERER-C ASBESTOS COVERER-Csnw Candice Sanchez3 Ghislaine Arredondo RN RN mb9 Corrections: (The following items were deleted from the chart) 22:32 22:26 Pulse 81bpm; Resp 18bpm; Pulse Ox 100% RA; Temp 98.2F; 145.15 kg; Height 6 ft. 3 mb9 in.; BMI: 40.0; Pain 10/10, Adult; mb9
--- NOTE | 2023-05-31 22:42 | EDPHYS ---
Physician Documentation [facility] Name: Terry Akins Sr Age: 42 yrs Sex: Male : 1980 Arrival Date: 05/31/2023 Time: 22:22 Bed IW1 Private MD: ED Physician Leo Smith HPI: 05/31 22:45 This 42 yrs old Black Male presents to ER via Ambulatory with complaints of Toothache. snw 22:45 The patient presents with broken tooth/teeth. Onset: The symptoms/episode snw began/occurred gradually, 3 week(s) ago, and became persistent. Duration: The symptoms are continuous. Severity of symptoms: At their worst the symptoms were moderate, severe. The patient has experienced similar episodes in the past. pt states he is taking amoxil BID x 3 days, motrin 600mg BID, gabapentin, and tylenol.. Historical: - Allergies: 22:28 No Known Allergies; mb9 - Home Meds: 22:28 gabapentin oral [Active]; mb9 - PMHx: 22:28 Hypertensive disorder; Migraine; mb9 - PSHx: 22:28 Appendectomy; carpal tunnel right; hernia; left hand tendonitis; Mastoid surgery; Nerve mb9 transplantion; shunt; - Immunization history:: Adult Immunizations up to date. - Social history:: Smoking status: Patient denies any tobacco usage or history of. ROS: 22:44 Constitutional: Negative for fever, chills, and weight loss, Eyes: Negative for injury, snw pain, redness, and discharge, Neck: Negative for injury, pain, and swelling, Cardiovascular: Negative for chest pain, palpitations, and edema, Respiratory: Negative for shortness of breath, cough, wheezing, and pleuritic chest pain, Abdomen/GI: Negative for abdominal pain, nausea, vomiting, diarrhea, and constipation, Back: Negative for injury and pain, : Negative for injury, bleeding, discharge, and swelling, MS/Extremity: Negative for injury and deformity, Skin: Negative for injury, rash, and discoloration, 22:44 ENT: Positive for Teeth pain Exam: 22:43 Constitutional: This is a well developed, well nourished patient who is awake, alert, snw and in no acute distress. Head/Face: Normocephalic, atraumatic. Eyes: Pupils equal round and reactive to light, extra-ocular motions intact. Lids and lashes normal. Conjunctiva and sclera are non-icteric and not injected. Cornea within normal limits. Periorbital areas with no swelling, redness, or edema. Neck: Trachea midline, no thyromegaly or masses palpated, and no cervical lymphadenopathy. Supple, full range of motion without nuchal rigidity, or vertebral point tenderness. No Meningismus. Chest/axilla: Normal chest wall appearance and motion. Nontender with no deformity. No lesions are appreciated. Cardiovascular: Regular rate and rhythm with a normal S1 and S2. No gallops, murmurs, or rubs. Normal PMI, no JVD. No pulse deficits. Respiratory: Lungs have equal breath sounds bilaterally, clear to auscultation and percussion. No rales, rhonchi or wheezes noted. No increased work of breathing, no retractions or nasal flaring. Abdomen/GI: Soft, non-tender, with normal bowel sounds. No distension or tympany. No guarding or rebound. No evidence of tenderness throughout. Back: No spinal tenderness. No costovertebral tenderness. Full range of motion. Skin: Warm, dry with normal turgor. Normal color with no rashes, no lesions, and no evidence of cellulitis. MS/ Extremity: Pulses equal, no cyanosis. Neurovascular intact. Full, normal range of motion. Neuro: Awake and alert, GCS 15, oriented to person, place, time, and situation. Cranial nerves II-XII grossly intact. Motor strength 5/5 in all extremities. Sensory grossly intact. Cerebellar exam normal. Normal gait. Psych: Awake, alert, with orientation to person, place and time. Behavior, mood, and affect are within normal limits. 22:43 ENT: External ear(s): are unremarkable, Nose: is normal, Mouth: is normal, Dental exam: fractured teeth are noted, specifically the lower left second molar (#18), pt states he has put OTC filling in it for the past three weeks., missing teeth, Vital Signs: 22:26 BP 164 / 91; Pulse 81; Resp 18; Temp 98.2(T); Pulse Ox 100% on R/A; Weight 145.15 kg; mb9 Height 6 ft. 3 in. ; Pain 10/10; 22:26 Body Mass Index 40.00 (145.15 kg, 190.5 cm) mb9 22:26 Pain Scale: Adult mb9 MDM: 22:31 Patient medically screened. snw 22:45 Differential diagnosis: dental caries, gingivitis, dental abscess. Data reviewed: vital snw signs, nurses notes. I considered the following discharge prescriptions or medication management in the emergency department Medications were administered in the Emergency Department. See MAR. Counseling: I had a detailed discussion with the patient and/or guardian regarding the historical points, exam findings, and any diagnostic results supporting the discharge/admit diagnosis, the need for outpatient follow up, for definitive care, a dentist. Special discussion: I have referred the patient to see his PCP for further evaluation of high blood pressure. Based on the history and exam findings, there is no indication for further emergent testing or inpatient evaluation. I discussed with the patient/guardian the need to see a dentist for further evaluation of the symptoms. Administered Medications: 22:40 Drug: HYDROcodone-acetaminophen PO 5 mg-325 mg 1 tabs PO once Route: PO; mb9 22:47 Follow up: Response: No adverse reaction mb9 22:40 Drug: Cyclobenzaprine PO 10 mg PO once Route: PO; mb9 22:47 Follow up: Response: No adverse reaction mb9 Disposition Summary: 05/31/23 22:41 Discharge Ordered Notes: Location: Home snw Condition: Stable snw Diagnosis - Dental caries, unspecified snw - Acute pain, not elsewhere classified snw Followup: snw - With: Emergency Department - When: As needed - Reason: Worsening of condition Followup: snw - With: Private Physician - When: 2 - 3 days - Reason: Recheck today's complaints, Continuance of care, Re-evaluation by your physician Discharge Instructions: - Discharge Summary Sheet snw - Dental Caries, Adult snw - Dental Extraction snw - Dental Pain snw - Diet and Dental Disease snw - Dental Extraction, Care After snw Forms: - Medication Reconciliation Form snw - Thank You Letter snw - Antibiotic Education snw - Prescription Opioid Use snw - Patient Portal Instructions snw - Leadership Thank You Letter snw Prescriptions: - chlorhexidine gluconate 0.12 % subgingival-local Mouthwash - swish 15 milliliter ORAL route 2 times per day; 480 milliliter; Refills: 0, snw Product Selection Permitted - Diclofenac Sodium 75 mg Oral Tablet Sustained Release - take 1 tablet ORAL route 2 times per day; 30 tablet; Refills: 0, Product snw Selection Permitted Addendum: 06/03/2023 08:05 Co-signature as Attending Physician, Leo Smith MD. e c2 Signatures: Jenn Obregon, RN ENDOCRINOLOGY-C RN ENDOCRINOLOGY-Csnw Ghislaine Arredondo RN RN mb9 Leo Smith MD MD ec2
[2023-05-31 22:51] VITALS: BP 164/91; TEMP 98.2; O2SAT 100
[2023-05-31] MEDS ORDERED: HYDROCODONE/APAP 5/325 MG TAB ONE (22:55)
[2023-05-31] MEDS ORDERED: CYCLOBENZAPRINE 10 MG TAB ONE (22:55)
== END 2023-05-31 22:47 | disposition home or self-care (01) ==
LOC: ER 22:22
DX: K02.9 Dental caries, unspecified (principal); R52 Pain, unspecified
CPT/HCPCS: 99283

== ENCOUNTER 2023-06-01 17:52 | Emergency (ER) | payer SELFPAY ==
--- NOTE | 2023-06-01 18:03 | EDPHYS ---
Physician Documentation [facility] Name: Terry Akins Sr Age: 42 yrs Sex: Male : 1980 Arrival Date: 06/01/2023 Time: 17:52 Bed 12 Private MD: ED Physician Stephane Rizvi HPI: 06/01 18:03 This 42 yrs old Black Male presents to ER via Ambulatory with complaints of Mouth jh7 Problem. 18:03 The patient presents with broken tooth/teeth, pain. The problem is located in the Left jh7 lower molar pain. Onset: The symptoms/episode began/occurred 1 week(s) ago. Patient presents for left lower molar pain. He reports he has an appointment with his dentist on . Seen yesterday in the ER for the same issue.. Historical: - Allergies: 18:03 No Known Allergies; hb - Home Meds: 18:03 gabapentin oral [Active]; hb - PMHx: 18:03 Hypertensive disorder; Migraine; hb - PSHx: 18:03 Appendectomy; carpal tunnel right; hernia; left hand tendonitis; Mastoid surgery; Nerve hb transplantion; shunt; - Immunization history:: Adult Immunizations up to date. - Social history:: Smoking status: Patient reports the use of cigarette tobacco products, smokes one-half pack cigarettes per day. ROS: 18:03 Constitutional: Negative for fever, chills, and weight loss, Eyes: Negative for injury, jh7 pain, redness, and discharge, Neck: Negative for injury, pain, and swelling, Cardiovascular: Negative for chest pain, palpitations, and edema, Respiratory: Negative for shortness of breath, cough, wheezing, and pleuritic chest pain, Abdomen/GI: Negative for abdominal pain, nausea, vomiting, diarrhea, and constipation, MS/Extremity: Negative for injury and deformity, Skin: Negative for injury, rash, and discoloration, Neuro: Negative for headache, weakness, numbness, tingling, and seizure, 18:03 ENT: Positive for dental pain, 18:03 All other systems are negative, Exam: 18:03 Constitutional: This is a well developed, well nourished patient who is awake, alert, jh7 and in no acute distress. Cardiovascular: Regular rate and rhythm with a normal S1 and S2. No gallops, murmurs, or rubs. Normal PMI, no JVD. No pulse deficits. Respiratory: Lungs have equal breath sounds bilaterally, clear to auscultation and percussion. No rales, rhonchi or wheezes noted. No increased work of breathing, no retractions or nasal flaring. Back: No spinal tenderness. No costovertebral tenderness. Full range of motion. Skin: Warm, dry with normal turgor. Normal color with no rashes, no lesions, and no evidence of cellulitis. MS/ Extremity: Pulses equal, no cyanosis. Neurovascular intact. Full, normal range of motion. Neuro: Awake and alert, GCS 15, oriented to person, place, time, and situation. Motor strength 5/5 in all extremities. Sensory grossly intact. Normal gait. 18:03 ENT: Dental exam: dental caries, that is moderate, fractured teeth are noted, specifically the lower left third molar (#17), pain, that is moderate, No cellulitis or swelling noted, Vital Signs: 18:02 BP 184 / 94; Pulse 82; Resp 18; Temp 98.7; Pulse Ox 100% on R/A; Pain 10/10; hb 18:02 Pain Scale: Adult hb MDM: 17:59 Patient medically screened. jh7 18:04 Differential diagnosis: dental caries, gingivitis, dental abscess. Data reviewed: vital [facility] signs, nurses notes. I considered the following discharge prescriptions or medication management in the emergency department Medications were administered in the Emergency Department. See MAR. Counseling: I had a detailed discussion with the patient and/or guardian regarding the historical points, exam findings, and any diagnostic results supporting the discharge/admit diagnosis, the need for outpatient follow up, a dentist, to return to the emergency department if symptoms worsen or persist or if there are any questions or concerns that arise at home. Administered Medications: 18:11 Drug: Ketorolac IM 60 mg IM once Route: IM; Site: right gluteus; ap3 18:54 Follow up: Response: No adverse reaction; Pain is decreased ap3 18:11 Drug: Cyclobenzaprine PO 10 mg PO once Route: PO; ap3 18:54 Follow up: Response: No adverse reaction; Pain is decreased ap3 Disposition Summary: 06/01/23 18:02 Discharge Ordered Notes: Location: Home [facility] Problem: new jh7 Symptoms: are unchanged [facility] Condition: Stable [facility] Diagnosis - Dental caries, unspecified [facility] Followup: [facility] - With: Private Physician - When: 2 - 3 days - Reason: Recheck today's complaints Discharge Instructions: - Discharge Summary Sheet [facility] - Dental Caries, Adult [facility] - Dental Pain [facility] Forms: - Medication Reconciliation Form [facility] - Thank You Letter [facility] - Patient Portal Instructions [facility] - Leadership Thank You Letter [facility] Prescriptions: - Cyclobenzaprine 5 mg Oral Tablet - take 1 tablet ORAL route 3 times per day As needed; 15 tablet; Refills: 0, jh7 Product Selection Permitted Signatures: Sophie Garcia, RN RN Lisa Fuller RN RN ap3 Dorothy Oconnor, CUSTOMS EXAMINER CUSTOMS EXAMINER [facility]
--- OUTSIDE RECORDS SUMMARY | 2023-06-01 18:04 | XMS REPORT | Continuity of Care Document ---
:1980 Author Organization [facility] t Address [address] [facility] [address] [place] [address] Care Team Providers Name Role Phone Geovanna [...] Unavailable Kelly LOJA, Karen Trent Attending Clinician Julian Sexton MD Attending Clinician César LOJA, Aidan Attending Clinician Cecil LOJA, Jimmy Amato Attending Clinician [phone] ANU ORTIZ Attending Clinician Unavailable NOAH OSORIO Attending Clinician Unavailable SONIA ROBERTS Attending Clinician Unavailable Marcella CLEMENTE, Rae Attending Clinician Unavailable Layne Sánchez MA Attending Clinician Unavailable Geronimo Michelle MD Attending Clinician Dorothea Delgadillo MA Attending Clinician Unavailable Amelia Cameron MA Attending Clinician Unavailable Brii Howard MA Attending Clinician Unavailable Doctor Unassigned, Gila Attending Clinician Unavailable 1, [employer] [...] Date Expiration Date S ource [facility] MEDICAID [id number] 2019 STAR 00:00:00 [facility] [id number] 2019 HEALTH CHOICE 00:00:00 [place] ST[place] [facility] [id number] 2018 [facility] HE[facility] 00:00:00 [facility] [id number] 2018 [facility] HEALTH CHOICE 00:00:00 [facility] [id number] 2018 [facility] HEALTH CHOICE 00:00:00 [facility] [id number] 2018 [facility] HEALTH CHOICE 00:00:00 [facility] [id number] 2018 [facility] HEALTH CHOICE 00:00:00 [facility] [id number] 2018 [facility] HEALTH CHOICE 00:00:00 [facility] [id number] 2018 [facility] HEALTH CHOICE 00:00:00 [facility] Problems Condition Condition Condition Status Onset Resolution Last Treating Co mments Source Name Details Category Date Date Treatment Clinician Date CRANIAL CRANIAL Diagnosis Active 2023-02-04 Memoria CEREBROSPI CEREBROSPI 02-01 13:10:00 l NAL FLUID NAL FLUID 00:00: Herm faina LEAK, LEAK, 00 SPONTA SPONTA Active 02/01/2023 [facility] Intractabl Intractabl Disease Active M ethodi e vomiting e vomiting 5-28 st with with 00:00: Hospita nausea nausea 00 l Hematemesi Hematemesi Disease Active M ethodi s with s with 5-28 st nausea nausea 00:00: Hospita 00 l Hypertensi Hypertensi Disease Active M ethodi ve urgency ve urgency 5-28 st 00:00: Hospita 00 l Acute Acute Disease Active Methodi intractabl intractabl 5-28 st e headache e headache 00:00: Ho spita 00 l SPINAL SPINAL Diagnosis Active 2021-082022-05-18 Me moria HEADACHE HEADACHE 0-05 08:44:00 l Active 12:00: [place] 05/16/2022 00 [facility] SENY BY SENY BY Diagnosis Active 2021-082022-05-16 Memoria PHYISICIAN PHYISICIAN 0-05 19:45:00 l Active 12:00: [place] 05/16/2022 00 [facility] L L Diagnosis Active 2021-082022-05-12 Mem oria MASTOIDITI MASTOIDITI 0- 05:56:00 l S S Active 00:00: [place] 05/12/2022 00 [facility] UNSPECIFIE UNSPECIFI Diagnosis Active 2021-10-26 Memoria D ED 3-15 18:20:00 l ABDOMINAL ABDOMINAL 00:00: Herm faina PAIN PAIN 00 Active 10/24/2021 [facility] DISPLACED DISPLACED Diagnosis Active 2021-10-08 Memoria ALUMINUM POLISHER SHUNT ALUMINUM POLISHER SHUNT 10-08 19:39:00 l Active 00:00: [place] 10/08/2021 [facility] [place] ALUMINUM POLISHER SHUNT ALUMINUM POLISHER SHUNT Diagnosis Active 2021-10-26 Memoria MALF MALF 10-08 18:20:00 l Active 00:00: [place] 10/08/2021 00 [facility] G96.00 G96.00 Diagnosis Active 2021-10-26 Me moria Active 09-28 18:20:00 l 09/28/2021 00:00: Sadi n [address] MD LOJA Diagnosis Active 2021-05-10 Mem oria REFERRAL/ REFERRAL/ 05-10 20:33:00 l FLUIDS FLUIDS 00:00: [place] LEAKING LEAKING 00 FROM EAR FROM EAR Active 05/10/2021 [facility] CSF CSF Disease Active [facility] otorrhea otorrhea 05-09 Health 00:00: 00 Syncope Syncope Disease Active 2017-08 [facility] [address] 00:00: Hospita 00 l [id number] Non-season Problem Com mon al Spirit allergic - [facility] rhinitis, [facility] un[facility]ifie [facility] [id number] Mild Problem Common intermitte Spirit nt asthma - [facility] with [facility] allergic [facility] rhinitis, Medical unspecifie Center d whether complicate d [id number] Depression Problem Co mmon with Spirit anxiety - [facility] [id number] Migraine Problem Comm on without Spirit aura and - [facility] without St status [facility] migrainosu Medica l s, not Center intractabl e [id number] Attention Problem Comm on deficit Spirit hyperactiv - [facility]I ity [facility] disorder [facility] (ADHD), Medical combined Center type [id number] Primary Problem Comm on osteoarthr Spirit itis of - CHI right knee [facility] [id number] Pain in Problem Common right knee Spirit - [facility] Body mass Body mass Problem Com mon index 40+ index Spirit - severely [BMI] - CHI obese 45.0-49.9, [facility] [id number] Morbid Problem Commo n 9104 (severe) Spirit obesity - CHI due to [facility] [id number] Left Problem Common maxillary Spirit sinusitis - [facility] [id number] Hypertensi Problem Com mon on, Spirit unspecifie - CHI d type [facility] [id number] GERD Problem Common without Spirit esophagiti - [facility] s [facility] [id number] Tobacco Problem Commo n use Spirit disorder - CH[facility] [id number] Other Problem Common chronic Spirit pain - [facility] [id number] Mixed Problem Common hyperlipid Spirit emia - [facility] [id number] Decreased Problem Com mon hearing of Spirit left ear - [facility] [id number] Loss of Problem Common taste Spirit - [facility] Lesion of Lesion of Problem 2019-01-26 Memoria ulnar ulnar 15:19:24 l nerve, nerve, [place] right right upper limb upper limb 01/26/2019 [facility] Unspecifie Unspecifi Problem 2019-01-26 Memoria d ed 15:19:24 l osteoarthr osteoarthr He jose alfredo itis, itis, unspecifie unspecifie d site d site 01/26/2019 [facility] Sleep Sleep Problem 2019-01-26 Memor ia apnea, apnea, 15:19:24 l unspecifie unspecifie He jose alfredo gage d 01/26/2019 MH [facility] Unspecifie Unspecifi Problem 2019-01-26 Memoria d asthma, ed asthma, 15:19:24 l uncomplica uncomplica He jose alfredo holley leydi 01/26/2019 [facility] Anxiety Anxiety Problem 2019-01-26 Me moria disorder, disorder, 15:19:24 l unspecifie unspecifie Harpreet gage d 01/26/2019 [facility] Gastro-eso Gastro-es Problem 2019-01-26 Memoria phageal ophageal 15:19:24 l reflux reflux [place] disease disease without without esophagiti esophagiti s s 01/26/2019 [facility] Essential Essential Problem 2019-01-26 Memoria (primary) (primary) 15:19:24 l hypertensi hypertensi He rmann on on 01/26/2019 [facility] Personal Personal Problem 2019-01-26 Memoria history of history of 15:19:24 l nicotine nicotine Sadi n dependence dependence 01/26/2019 [facility] Allergy Allergy Problem 2019-01-26 Me moria status to status to 15:19:24 l analgesic analgesic Herm faina agent agent status status 01/26/2019 [facility] [employer]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 2019-01-26 Memoria (current) (current) 15:19:24 l use of use of [place] non-steroi non-steroi siddharth siddharth anti-infla anti-infla mmatories mmatories (NSAID) (NSAID) 01/26/2019 [facility] Dependence Dependenc Problem 2019-01-26 Memoria on other e on other 15:19:24 l enabling enabling Sadi n machines machines and and devices devices 01/26/2019 [facility] Arthrodesi Arthrodes Problem 2019-01-26 Memoria s status is status 15:19:24 l 01/26/2019 Sadi gresham [facility] Cerebrospi Cerebrosp Problem Active 2022-09-23 Memoria nal fluid inal fluid 07:26:44 l leak leak [place] (disorder) (disorder) Active Problem 09/23/2022 [facility], RHODA Cedeño, Thomas Renteria [facility] Chest pain Chest Problem Active 2022-09-23 Thomas donnelly (finding) pain 07:26:44 l (finding) Dvaidson Active Problem 09/23/2022 [facility], RHODA Cedeño, Thomas Renteria [facility] Morbid Morbid Problem Active 2022-09-23 David katarzyna obesity obesity 07:26:44 l (disorder) (disorder) He rmann Active Problem 09/23/2022 [facility], RHODA Cedeño, Thomas Renteria [facility] Rhabdomyol Rhabdomyo Problem Active 2022-09-23 Memoria ysis lysis 07:26:44 l (disorder) (disorder) He rmann Active Problem 09/23/2022 [facility], RHODA Cedeño, RHODA Burr,M [facility],[facility] Smoker Smoker Problem Active 2022-09-23 David katarzyna (finding) (finding) 07:26:44 l Active [place] Problem 09/23/2022 [facility], RHODA Cedeño, RHODA Burr,M [facility] MECH COMPL MECH Diagnosis Active 2021-10-26 Memoria OF COMPL OF 18:20:00 l VENTRICULA VENTRICULA He rmann R R INTRACRANI INTRACRANI AL S AL S Active [facility] R10.30 - R10.30 - Diagnosis Active 2021-10-26 Memoria LOWER LOWER 18:20:00 l ABDOMINAL ABDOMINAL Herm faina PAIN, PAIN, UNSPECIF UNSPECIF Active RHODA Cedeño R10.84 - R10.84 - Diagnosis Active 2022-01-10 Memoria GENERALIZE GENERALIZE 14:35:00 l D D [place] ABDOMINAL ABDOMINAL PAIN PAIN Active RHODA Burr Headache Headache Problem Active 2022-09-23 Memoria (finding) (finding) 07:26:44 l Active [place] Problem 09/23/2022 [facility] 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 (finding) (finding) Active Problem 09/23/2022 [facility] OTHER OTHER Diagnosis Active 2022-05-18 Mem oria REACTION REACTION 08:44:00 l TO SPINAL TO SPINAL Herm faina AND LUMBAR AND LUMBAR PUNC PUNC Active [facility] G96.01 - G96.01 - Diagnosis Active 2022-09-20 Memoria CRANIAL CRANIAL 13:51:00 l CEREBROSPI CEREBROSPI He rmann NAL FLUID NAL FLUID LE LE Active [facility] Cubital Cubital Problem Active [facility] tunnel tunnel [...] rs active active ity of problems problems [facility] Sprain of Sprain Problem Resolve 2011-2022-05-21 2022-05-21 Memoria ligament of d - 21:55:10 21:55:10 l of finger ligament 00:00: Kelly nn (disorder) of finger 00 (disorder) Resolved 12/23/2011 Problem 05/21/2022 [facility], RHODA Cedeño, RHODA Burr,M [facility] History of Past Illness Condition Condition Condition Status Onset Resolution Last Treating Co mments Source Name Details Category Date Date Treatment Clinician Date Headache, Headache, Problem 2021-082022-05-14 2022-05-14 Memoria unspecifie unspecifie 0-02 23:16:23 23:16:23 l d d 02:01: [place] 05/13/2022 00 05/14/2022 [facility] Presence Presence Problem 2021-082022-05-14 2022-05-14 Memoria of of 0-02 23:16:23 23:16:23 l cerebrospi cerebrospi 02:01: Harpreet veliz nal fluid nal fluid 00 drainage drainage device device 05/13/2022 05/14/2022 [facility] Carpal Carpal Problem 2017-082019-01-26 2019-01-26 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:19:24 15:19:24 l syndrome, syndrome, 04:59: Herm faina right right 41 upper limb upper limb 07/17/2018 01/26/2019 MH [facility] Obstructiv Obstructi Problem 2017-082019-01-11 2019-01-11 Mike bhakta sleep ve sleep 08-28 11:08:48 11:08:48 l apnea apnea 05:23: [place] (adult) (adult) 17 (pediatric (pediatric ) ) 06/28/2018 01/11/2019 MH [facility] Unspecifie Unspecifi Problem 2017-082018-12-03 2018-12-03 Mike d ed 0-11 14:53:30 14:53:30 l mononeurop mononeurop 04:28: Harpreet pink of athy of 42 right right upper limb upper limb 05/22/2018 9 MH [facility] Pain in Pain in Problem 2017-082018-12-03 2018-12-03 Mike arm, arm, 0-05 14:53:30 14:53:30 l unspecifie unspecifie 05:00: He jose alfredo d d 00 05/16/2018 9 MH [facility] Allergies, Adverse Reactions, Alerts Allergy Allergy Status Severity Reaction(s) Onset Inactive Treating Comm ents Source Name Type Date Date Clinician No Known No Known Active Memori a Medicati Medicati l on on [place] Aquino Allergorion s s Acetamin drug Active Headache [facility] ophen allergy Physici TABS ans NO KNOWN Drug Active [facility] ALLERGIE Class ity of S [facility] NO KNOWN Allergy Active [facility] Family History Family Member Diagnosis Comments Start Date Stop Date Source Other Diabetes [facility] natural son Family history of [...] Stop Date Quantity Comments Source History SDOH [facility] Alcohol Frequency History SDOH [facility] Alcohol Std Drinks History [facility] Alcohol Binge Sexual orientation [facility] Gender identity [facility] Cigarettes smoked 2023-04-23 2023-04-23 [facility] current (pack per 00:00:00 00:00:00 day) - Reported Cigarette 2023-04-23 2023-04-23 [facility] pack-years 00:00:00 00:00:00 History of Social 2023-01-07 2023-01-[address] function 00:00:00 00:00:00 Hospital Tobacco use and 2023-01-06 2023-01-06 Smokeless tobacco Me thodist exposure 00:00:00 00:00:00 non-user Hospital Alcohol intake 2023-01-06 2023-01-06 Current non-drinker M ethodist 00:00:00 00:00:00 of alcohol Hospital (finding) Tobacco Comment 2022-11-14 2022-11-14 Pt quit few years [facility] 00:00:00 00:00:00 ago Medical Boody Exposure to 2022-09-18 2022-09-28 Not sure [facility] SARS-CoV-2 (event) 00:00:00 14:46:00 Alcohol Comment 2021-10-18 2021-10-18 [facility]assionally [facility] 00:[facility] 00:00:00 History of tobacco 1994-10-02 2021-02-03 Snuff User PA He lt use 00:00:00 00:00:00 Social History 2018-07-08 2018-07-08 [facility] 18:40:37 18:40:37 Sex Assigned At [address] 00:00:00 [facility]00 [facility] Center Smoking Status Start Date Stop Date Source Tobacco smoking [facility] [place] consumption unknown Medical Bran ch Ex-smoker 2023-04-23 00:00:00 2023-04-23 [facility] 00:00:00 Never Smoker [facility]ter Current Smoker 2022-06-22 00:00:00 [facility] nter Medications Ordered Filled Start Stop Current Ordering Indication Dosage Frequency Signature Comments Components Source Medication Medication Date Date Medication? Clinician (SIG) Name Name losartan 2023-0 Yes 25mg QD Take 25 mg [facility] (Cozaar) 25 9-12 by mouth 1 He alth MG tablet 14:32: (one) time 06 each day. losartan 2023-0 Yes 25mg QD Take 25 mg [facility] (Cozaar) 25 9-12 by mouth 1 He alth MG tablet 14:32: (one) time 06 each day. Rimegepant 2023-0 Yes [id number] 75mg Take 75 mg UT Sulfate 9-12 by mouth Health (Nurtec) 75 00:00: continuous MG tablet 00 ly if dispersible needed (migraines ). Rimegepant 2023-0 Yes [id number] 75mg Take 75 mg [facility] Sulfate 75 9-12 by mouth Healt h MG tablet 00:00: if needed dispersible 00 (migraines ). Rimegepant 2023-0 Yes [id number] 75mg Take 75 mg UT Sulfate 9-12 by mouth Health (Nurtec) 75 00:00: continuous MG tablet 00 ly if dispersible needed (migraines ). Rimegepant 3-0 Yes [id number] 75mg Take 75 mg [facility] Sulfate 75 [...] 2022- No 1{tbl} 1 tablet, Univers -acetaminop 03-2716 Oral, ity of hen (NORCO) 01:30: 00:52 [place] 10[place]325 mg 00 :00 dose, On Medica l tablet 1 Tue Branch tablet 03/26/23 at 2030, DAKSHA iopamidol 2022- No [id number] 100mL 100 mL, Univers (ISOVUE 03-27 Intravenou ity o f 370-500 mL) 00:30: 00:30 s, ONCE, 1 [place] injection 00 :00 dose, On Medica l 100 mL Tue Branch 03/26/23 at 1930, Routine amLODIPine amLODIPine No 1{table QD amLODIPine Besylate 5 Besylate 5 8-16 t} Besylate 5 MG MG 00:00: MG 00 amLODIPine amLODIPine 0 No 1{table QD amLODIPine Besylate 5 Besylate 5 8-16 t} Besylate 5 MG MG 00:00: MG 00 acetaminoph 2022- Yes [id number] 1{tbl} Take 1 U nivers en-codeine 03-26 tablet by ity of 300-30 mg 00:00: 04:59 mouth [place] tablet 00 :00 every 6 Medical (six) Branch hours as needed for Pain (scale 7-10) for up to 7 days. Indication s: acute pain amLODIPine amLODIPine No 1{table QD amLODIPine Besylate 5 Besylate 5 8-14 t} Besylate 5 MG MG 00:00: MG 00 amLODIPine amLODIPine No 1{table QD amLODIPine Besylate 5 Besylate 5 8-14 t} Besylate 5 MG MG 00:00: MG 00 ciprofloxac 2022- Yes [id number] 10[drp] Q.5D Administer UT in-dexameth 03-13 [id number] 10 drops He alth asone 00:00: 04:59 into the (Ciprodex) 00 :00 left ear otic in the suspension morning and 10 drops in the evening. Do all this for 7 days. acetaminoph 2022- Yes [id number] 1{tbl} Q6H Take 1 UT en-codeine 03-13 tablet by [facility] (Tylenol w/ 00:00: 04:59 mouth Codeine #3) 00 :00 every 6 300-30 MG (six) tablet hours if needed for severe pain for up to 5 days. amLODIPine Yes 5mg QD Take 5 mg UT (Norvasc) 5 7-11 by mouth 1 He alth MG tablet 00:00: (one) time 00 each day. amLODIPine 2022-0 2022- No 5mg QD Take 5 mg U T (Norvasc) 5 02-19 0912 by mouth 1 H ealth MG tablet 00:00: 00:00 (one) time 00 :00 each day. Ondansetron Ondansetron 2022-0 No 1{table Ondansetro HCl 8 MG HCl 8 MG 6-26 t_as_ne n HCl 8 MG 00:00: eded} 00 Ondansetron Ondansetron 2022-0 No 1{table Ondansetro HCl 8 MG HCl 8 MG 6-26 t_as_ne n HCl 8 MG 00:00: eded} 00 lisinopriL 3-0 Yes 40mg QD Take 1 Metho di (PRINIVIL) 5-30 tablet (40 st 40 mg 18:25: mg total) Hospita tablet 02 by mouth l daily. traMADoL 2022-0 Yes [id number] 50mg Q24H Take 1 Method i (ULTRAM) 50 5-30 tablet (50 st mg tablet 18:25: mg total) Hos yumiko 02 by mouth l daily as needed for moderate pain .acute pain. omeprazole 3-0 Yes 40mg QD Take 1 Metho di (PriLOSEC) 5-[address] 40 MG 18:25: (40 mg Hospita capsule 02 total) by l mouth daily. dicyclomine 3-0 Yes 20mg QD Take 1 Meth aubree (BENTYL) 20 5-30 tablet (20 st mg tablet 18:25: mg total) Hos yumiko 02 by mouth l daily. ondansetron 3-0 Yes 4mg Q8H Take 1 Meth aubree [...] tablet 02 by mouth l daily. traMADoL 3-0 Yes [id number] 50mg Q24H Take 1 Method i (ULTRAM) [...] by mouth l daily. traMADoL 2023-0 Yes [id number] 50mg Q24H Take 1 Method i (ULTRAM) [...] by mouth l daily. traMADoL 2023-0 Yes [id number] 50mg Q24H Take 1 Method i (ULTRAM) [...] by mouth l daily. traMADoL 2023-0 Yes [id number] 50mg Q24H Take 1 Method i (ULTRAM) [...] by mouth l daily. traMADoL 2023-0 Yes [id number] 50mg Q24H Take 1 Method i (ULTRAM) [...] by mouth l daily. traMADoL 2023-0 Yes [id number] 50mg Q24H Take 1 Method i (ULTRAM) [...] by mouth l daily. traMADoL 2023-0 Yes [id number] 50mg Q24H Take 1 Method i (ULTRAM) [...] by mouth l daily. traMADoL 2023-0 Yes [id number] 50mg Q24H Take 1 Method i (ULTRAM) [...] tablet 02 by mouth l daily. traMADoL 3-0 Yes [id number] 50mg Q24H Take 1 Method i (ULTRAM) 50 5-30 tablet (50 st mg tablet 18:25: mg total) Hos yumiko 02 by mouth l daily as needed for moderate pain .acute pain. omeprazole 3-0 Yes 40mg QD Take 1 Metho di (PriLOSEC) 5-[address] 40 MG 18:25: (40 mg Hospita capsule 02 total) by l mouth daily. dicyclomine 3-0 Yes 20mg QD Take 1 Meth aubree (BENTYL) 20 5-30 tablet (20 st mg tablet 18:25: mg total) Hos yumiko 02 by mouth l daily. ondansetron 3-0 Yes 4mg Q8H Take 1 Meth aubree ODT 5-30 tablet (4 st (ZOFRAN-ODT 18:25: mg total) H ospita ) 4 MG 02 by mouth l disintegrat every 8 ing tablet (eight) hours as needed for nausea or vomiting. amLODIPine 3-0 2023- No 5mg QD Take 1 Meth [...] l daily for 30 days. amLODIPine 2022-0 3- No 5mg QD Take 1 Meth aubree (NORVASC) 5 5-30 06-30 tablet (5 st mg tablet 00:00: 04:59 mg total) Ho spita 00 :00 by mouth l daily for 30 days. amLODIPine 2022-0 3- No 5mg QD Take 1 Meth aubree [...] l daily for 30 days. amLODIPine 2022-0 3- No 5mg QD Take 1 Meth aubree (NORVASC) 5 5-30 06-30 tablet (5 st mg tablet 00:00: 04:59 mg total) Ho spita 00 :00 by mouth l daily for 30 days. ciprofloxac 2022-0 2022- No 500mg Q.5D Take 1 Me thodi in (Cipro) 01-07 06-[address] 500 MG 00:00: 04:59 (500 mg Hospita tablet 00 :00 total) by l mouth 2 (two) times a day for 5 days. metroNIDAZO 2022-0 3- No 500mg Q.[id number] Take 1 Methodi LE (FlagyL) 01-07- [id number] tablet st 500 MG 00:00: 04:59 3D [...] 5 days. metroNIDAZO 2023-0 2023- No 500mg Q.[id number] Take 1 Methodi LE (FlagyL) 01-[id number] 500 MG 00:00: 04:59 3D [...] 5 days. metroNIDAZO 2023-0 2023- No 500mg Q.[id number] Take 1 Methodi LE (FlagyL) 01-[id number] 500 MG 00:00: 04:59 3D [...] 5 days. metroNIDAZO 2023-0 2023- No 500mg Q.[id number] Take 1 Methodi LE (FlagyL) 01-07- [id number] tablet st 500 MG 00:00: 04:59 3D [...] 5 days. metroNIDAZO 2023-0 2023- No 500mg Q.[id number] Take 1 Methodi LE (FlagyL) 01-07- [id number] tablet st 500 MG 00:00: 04:59 3D [...] 5 days. metroNIDAZO 2023-0 2023- No 500mg Q.[id number] Take 1 Methodi LE (FlagyL) 01-[id number] 500 MG 00:00: 04:59 3D [...] 5 days. metroNIDAZO 2023-0 2023- No 500mg Q.[id number] Take 1 Methodi LE (FlagyL) 01-07- [id number] tablet st 500 MG 00:00: 04:59 3D [...] 5 days. metroNIDAZO 2023-0 2023- No 500mg Q.[id number] Take 1 Methodi LE (FlagyL) 01-[id number] 500 MG 00:00: 04:59 3D [...] 5 days. metroNIDAZO 2023-0 2023- No 500mg Q.[id number] Take 1 Methodi LE (FlagyL) 01-[id number] 500 MG 00:00: 04:59 3D [...] 5 days. metroNIDAZO 2023-0 2023- No 500mg Q.[id number] Take 1 Methodi LE (FlagyL) 01-[id number] 500 MG 00:00: 04:59 3D (500 mg Hospita tablet 00 :00 total) by l mouth 3 (three) times a day for 5 days. butalbital- 2022-0 202- No 1{tbl} Q6H Take 1 M ethodi acetaminoph 01-[address] en-caff 00:00: 04:59 mouth Hospita (FIORICET) 00 :00 every 6 l 50-325-40 (six) mg per hours as tablet needed for headaches for up to 2 days. butalbital- 202-0 2023- No 1{tbl} Q6H Take 1 M ethodi acetaminoph 01-07-[address] [facility] 00:00: 04:59 mouth Hospita (FIORICET) 00 :00 every 6 l 50-325-40 (six) mg per hours as tablet needed for headaches for up to 2 days. butalbital- 2022- No 1{tbl} Q6H Take 1 M ethodi acetaminoph 5-29 06-[address] [facility] 00:00: 04:59 mouth Hospita (FIORICET) 00 :00 every 6 l 50-325-40 (six) mg per hours as tablet needed for headaches for up to 2 days. butalbital- 2022- No 1{tbl} Q6H Take 1 M ethodi acetaminoph 5-29 06-[address] [facility] 00:00: 04:59 mouth Hospita (FIORICET) 00 :00 every 6 l 50-325-40 (six) mg per hours as tablet needed for headaches for up to 2 days. butalbital- 2022- No 1{tbl} Q6H Take 1 M ethodi acetaminoph 5-29 06-[address] [facility] 00:00: 04:59 mouth Hospita (FIORICET) 00 :00 every 6 l 50-325-40 (six) mg per hours as tablet needed for headaches for up to 2 days. butalbital- 2022- No 1{tbl} Q6H Take 1 M ethodi acetaminoph 5-29 06-[address] [facility] 00:00: 04:59 mouth Hospita (FIORICET) 00 :00 every 6 l 50-325-40 (six) mg per hours as tablet needed for headaches for up to 2 days. butalbital- 2022- No 1{tbl} Q6H Take 1 M ethodi acetaminoph 5-29 06-[address] [facility] 00:00: 04:59 mouth Hospita (FIORICET) [...] headaches for up to 2 days. butalbital- 2022-2022- No 1{tbl} Q6H Take [...] as needed Luke s MG tablet 16:50: [address] ondansetron 2022-0 Yes [address] (Zofran) 8 4-06 as needed Luke s MG tablet 16:50: [address] ondansetron 2022-0 Yes [address] (Zofran) 8 4-06 as needed Luke s MG tablet 16:50: [address] ondansetron 2022-0 Yes [address] (Zofran) 8 4-06 as needed Luke s MG tablet 16:50: [address] ondansetron 2022-0 Yes [address] (Zofran) 8 4-06 as needed Luke s MG tablet 16:50: [address] ondansetron 2022-0 Yes 1 tablet [facility] (Zofran[facility] 8 4-06 as needed Luke s MG tablet 16:50: [address] ondansetron 2022-0 Yes [address] [facility] [address] [facility] (Zofran) 8 4-06 as needed Luke s MG tablet 16:50: [address] ondansetron 2023-0 Yes [address] [facility] [address] [facility] (Zofran) 8 4-06 as needed Luke s MG tablet 16:50: [address] ondansetron 0 Yes [address] [facility] [address] [facility] (Zofran) 8 4-06 as needed Luke s MG tablet 16:50: [address] ondansetron 0 Yes [address] [facility] [address] [facility] (Zofran) 8 4-06 as needed Luke s MG tablet 16:50: [address] ondansetron 0 Yes [address] [facility] [address] [facility] (Zofran) 8 4-06 as needed Luke s MG tablet 16:50: [address] ondansetron Yes [address] [facility] [address] [facility] (Zofran) 8 4-06 as needed Luke s MG tablet 16:50: [address] traMADol 2022- No [id number] 50mg Q6H Take 1 [facility] (Ultram) 50 09-2806 tablet (50 H ealth MG tablet 00:00: 05:59 mg total) 00 :00 by mouth every 6 (six) hours if needed for severe pain for up to 5 days. omeprazole 0 Yes [address] [facility] [address] [facility] (PriLOSEC) 2-16 30 minutes Ariel es 40 MG 00:00: before Medical capsule 00 morning Center meal losartan Yes 100mg QD Take [address] [facility] [...] 00:00: (Hyzaar) 00 100-25 MG tablet losartan 2023-0 Yes 100mg QD Take 1 [...] total) by Center mouth in the morning. Kenalog Kenalog 2022-0 No 40mg Common (Triamcinol (Triamcinol 2-16 S pirit one) one) 00:00: - [facility] Kenalog Kenalog 2022-0 No 40mg Common (Triamcinol (Triamcinol 2-16 S pirit one) one) 00:00: - [facility] omeprazole 2022-0 2023- No [facility] (PriLOSEC) 2-16 09-[address] 00:00: 00:00 capsule 00 :00 losartan-hy 2022-0 2022- No UT droCHLOROth 09-27 Health iazide 00:00: 00:00 (Hyzaar) 00 :00 100-25 MG tablet ondansetron 2022- No 105 4mg [facility] (Zofran) 09-18 Health tablet 4 mg 16:42: 16:41 42 :42 traMADol 2022- No [id number] 50mg Q6H Take 1 [facility] (Ultram) 50 [...] by mouth Center in the morning. ciprofloxac 2022-2022- No [id number] 10[drp] Q.5D Administer UT in-dexameth 09-07 46013 10 drops He alth asone 00:00: 05:59 [...] 1{table Ondansetro 4 MG 4 MG 11 t_onth n 4 MG 00:00: e_tongu 00 e_and_a llow_to _dissol ve} Pantoprazol Pantoprazol 2021-08 No 1{table QD Pantoprazo e Sodium 40 e Sodium 40 08-22 t} le Sodium MG MG 00:00: 40 MG 00 Lisinopril Lisinopril 2021-08 No 1{table QD Lisinopril 40 MG 40 MG 11 t} 40 MG 00:00: 00 Ondansetron Ondansetron 2021-08 No 1{table Ondansetro 4 MG 4 MG 11 t_on n 4 MG 00:00: e_tongu 00 [...] faina capsule 00 cap, 0 Refill(s), Pharmacy: [facility] #[id number], 190.5, cm, 05/16/22 23:38:00 CDT, Height, 159.001, kg, 05/16/22 23:38:00 CDT, Weight senna 8.6 2021-08 Yes 8.6 mg = 1 Me moria mg oral 0-08 tab, PO, l tablet 14:59: Q12H, X 7 Sadi n 00 day, # 14 tab, 0 Refill(s), Pharmacy: [facility] #[id number], 190.5, cm, 05/16/22 23:38:00 CDT, Height, 159.001, kg, 05/16/22 23:38:00 CDT, Weight polyethylen 2021-08 Yes 17 gm, PO, Memoria e glycol 0-08 BID, X 14 l 3350 oral 14:59: day, # 255 He rmann powder for 00 gm, 0 reconstitut Refill(s), ion Pharmacy: [facility] #[id number], 190.5, cm, 05/16/22 23:38:00 CDT, Height, 159.001, kg, 05/16/22 23:38:00 CDT, Weight celecoxib 2021-08 Yes 200 mg = 1 Me moria 200 mg oral 0-08 cap, PO, l capsule 13:50: BID, # 28 Kelly nn 00 cap, 0 Refill(s), Pharmacy: [facility] #[id number], 190.5, cm, 05/16/22 23:38:00 CDT, Height, 159.001, kg, 05/16/22 23:38:00 CDT, Weight Omnipaque 2021-08 No 100 mL, Memor ia 350 mg/mL 0-08 Route: l 02:52: IVP, Drug [place] 00 Form: SOLN, Dosing Weight 159.001, kg, [...] Duration: 30 day, Stop date: 06/17/22 16:00:00 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, 0 hydrOXYzine 2021-08 No Notes: David katarzyna 0-07 (Same as: l 22:45: Vistaril) [place] 00 Omnipaque 2021-08 No Notes: Memori a 350 mg/mL 0-07 (same l 21:28: as:Omnipaq [place] 00 ue 350). WASTE: F/P - Black; [...] tab, PO, l tablet 12:42: Q6H, PRN [place] 00 Pain, not to exceed 400 mg/day, X 5 day, # 20 tab, 0 Refill(s), Pharmacy: [id number], 190.5, cm, 05/16/22 23:38:00 CDT, [...] e 0-06 Tablet l 14:00: should not [place] 00 be chewed or crushed. (Same as: Protonix) topiramate 2021-08 No Notes: Memor ia 0-06 (Same As: l 14:00: Topamax) [place] 00 "Do Not Crush" Hazardous Drug Group 3:Reproduc tive risk Hazardous Drug -- Refer to safe handling procedure PPE Matrix ceFAZolin 2021-08 No Notes: Memori a (SCIP) 0-06 (Same as l 05:00: Ancef) [place] 00 Adult 2021-08 No 650 mg = [...] 0.9% 0-06 (Same as: l 02:00: BD [place] 00 Posiflush) Keppra 500 2021-08 No Notes: Memor ia mg oral 0-06 (Same l tablet 02:00: as:Keppra) Kelly nn 00 sucralfate 2021-08 No Notes: May M emoria 0-06 interfere l 02:00: w/enteral [place] 00 feeds - Take 1 hr before or 2 hr after antacids, dairy pdt, meals & minerals - On empty stomach. For patients unable to swallow tablet, dissolve in 10mL - 30mL of water or juice and stir before giving. (Same As: Carafate) Sodium 2021-08 No 1,000 mL, Memori a Chloride 0-06 Rate: 75 l 0.9% IV 00:53: ml/hr, [place] 1,000 mL 00 Infuse over: 13.3 hr, [...] 0-06 tab, PO, l tablet 00:52: Before [place] 00 Meals & Bedtime, # 120 tab, 3 Refill(s) amoxicillin 2021-08 No 1 tab, PO, Memoria -clavulanat 0-06 BID, # 20 l e 875 00:52: tab, 0 [place] mg-125 mg 00 Refill(s) oral tablet metoclopram [...] tab, PO, l tablet 00:52: Q6H, PRN [place] 00 Pain, # 40 tab, 0 Refill(s) [...] l oral tablet 00:52: Daily, # 5 [place] 00 tab, 0 Refill(s) ondansetron 2021-08 No 4 mg = 1 Me moria 4 mg oral 0-06 tab, PO, l tablet, 00:52: TID, PRN Sadi n disintegrat 00 Nausea / ing Vomiting, Dissolve tab under tongue, # 10 tab, 0 Refill(s) predniSONE 2021-08 No 10 mg = 1 Me moria 10 mg oral 0-06 tab, PO, l tablet 00:52: Daily, # [place] 00 30 tab, 3 Refill(s) ofloxacin 2021-08 [...] 0-06 mL, Route: l 00:45: IVP, Drug [place] 00 form: INJ, Q15Min, Dosing Weight 159.091, kg, PRN Hypertensi on, Start date: 05/16/22 19:45:00 CDT, Duration: 3 doses or times, Stop date: Limited # of times, 0 hydrALAZINE 2021-08 No Notes: David katarzyna 0-06 (Same as: l 00:45: Apresoline [place] ) Push over 5 minutes ondansetron 2021-08 No Notes: David katarzyna 0-06 (Same as: l 00:45: Zofran) MEDICATION WASTE Product Size: 4 mg Product Wasted: ___ mg [place] 2021-08 No Notes: Do Memoria 10/325 oral 0-06 not exceed l tablet 00:45: 4gm/day of Kelly acetaminop hen. (Same as: [place] 325/10) Dilaudid 2021-08 No 0.5 mg, Memori [...] 1.4% 0-06 Chlorasept l spray 00:45: ic [place] (Same as: Chlorasept ic, Sore Throat [place]) WASTE: F/P - Black; E - Municipal [...] ia 0-05 Route: PO, l 23:44: ONCE, [place] 00 Dosing Weight 159.091, kg, Start date: [...] Take 1 UT -clavulanat 0-03 tablet by [facility] e 00:00: mouth (Augmentin) 00 every 12 875-125 MG (twelve) tablet hours. FOR 7 DAYS topiramate 2021-08 Yes TAKE 1 UT (Topamax) 0-03 TABLET BY Healt h 25 MG 00:00: MOUTH tablet 00 EVERY 12 HOURS FOR 10 DAYS amoxicillin 2021-08 Yes 1{tbl} Q12H Take 1 UT -clavulanat 0-03 tablet by [facility] e 00:00: mouth (Augmentin) 00 every 12 875-125 MG (twelve) tablet hours. FOR 7 DAYS topiramate 2021-08 Yes TAKE 1 UT (Topamax) 0-03 TABLET BY Healt h 25 MG 00:00: MOUTH tablet 00 EVERY 12 HOURS FOR 10 DAYS amoxicillin 2021-08 Yes 1{tbl} Q12H Take 1 UT -clavulanat 0-03 tablet by [facility] e 00:00: mouth (Augmentin) 00 every 12 [...] (twelve) tablet hours. FOR 7 DAYS topiramate 2021-08- No TAKE 1 UT (Topamax) 0-03 09-12 [...] tab, PO, l tablet 02:03: Q6H, PRN [place] 00 nausea and vomiting, X 5 day, # 20 tab, 0 Refill(s) ketOROLAC 2021-08 No 15 mg, Memori a 0-02 Route: l 01:29: IVP, Drug form: INJ, ONCE, Dosing Weight 145.455, kg, Priority: STAT, Start date: 05/12/22 20:29:00 CDT, Stop date: 05/12/22 20:29:00 CDT acetaminoph 2021-08 Yes Notes: Do M emoria en 0-02 not exceed l 01:19: 4 gm/day. [place] 00 (Same as: Tylenol) ibuprofen 2021-08 No [...] Memoria Sulfate 0-01 (Same l 22:33: as:MORPhin [place] 00 e Sulfate) fentaNYL 2021-08 No Notes: [...] Take 20 mg UT 20 MG 8-16 -12 by mouth 1 Health tablet 00:00: 00:00 (one) time 00 :00 each day. lisinopril 2022-0 2023- No 20mg QD Take 20 mg UT 20 MG 8-16 -12 by mouth 1 Health tablet 00:00: 00:00 (one) time 00 :00 each day. ofloxacin 0 Yes INSTILL 4 [...] solution 00 TWICE A DAY ofloxacin 0 2022- No INSTILL 4 UT (Floxin) 6-15 09-12 [...] 1000 mg Product Wasted: ___ mg Oxycodone 0 No 10 mg, Memori a 10-09 Route: PO, l 21:36: Drug form: [place] 00 TAB, ONCE, Dosing Weight 156, kg, PRN Pain Score 7-10, Start date: 10/09/21 15:36:00 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 Oxycodone 2021-0 No 10 mg, Memori a 10-09 Route: PO, l 21:36: Drug form: [place] 00 TAB, ONCE, Dosing Weight 156, kg, PRN Pain Score 7-10, Start date: 10/09/21 15:36:00 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 Ofirmev 0 No or = 50 Memori a 2-28 kg, Start l 21:19: date: 10/09/21 15:19:00 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 Ofirmev 2021-0 No or = 50 Memori a 2-28 kg, Start l 21:19: date: 10/09/21 15:19:00 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 sugammadex 2021-0 No Route: IV, M emoria (ANES) 2- Drug form: l 21:05: SOLN, [place] 00 ONCE, Stop date: 10/09/21 15:05:00 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 sugammadex 2021-0 No Route: IV, M emoria (ANES) 2- Drug form: l 21:05: SOLN, [place] 00 ONCE, Stop date: 10/09/21 15:05:00 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 Hydromorpho 2021-0 No Notes: David katarzyna ne 2-28 Same as l 21:02: Dilaudid Flumazenil 2021-0 No Notes: Memor ia 2-28 (Same as: l 21:02: Romazicon) [place] 00 Naloxone 2021-0 No Notes: Memoria 2-28 Same as l 21:02: Narcan Ondansetron 2021-0 No 4 mg, Memor ia 2-28 Route: l 21:02: IVP, ONCE, [place] Dosing Weight 156, kg, PRN Nausea & Vomiting, Start date: 10/09/21 15:02:00 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 Hydromorpho 2021-0 No Notes: David katarzyna ne 2-28 Same as l 21:02: Dilaudid Flumazenil 2021-0 No Notes: Memor ia 2-28 (Same as: l 21:02: Romazicon) [place] 00 Naloxone 2021-0 No Notes: Memoria 2-28 Same as l 21:02: Narcan Ondansetron 2021-0 No 4 mg, Memor ia 2-28 Route: l 21:02: IVP, ONCE, [place] Dosing Weight 156, kg, PRN Nausea & Vomiting, Start date: 10/09/21 15:02:00 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 ondansetron 2021-0 No Route: IV, Memoria (ANES) 2-28 Drug form: l 21:00: INJ, ONCE, [place] 00 Stop date: 10/09/21 15:00:00 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 ondansetron No Route: IV, Memoria (ANES) - Drug form: l 21:00: INJ, ONCE, Stop date: 10/09/21 15:00:00 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 ceFAZolin 2021-0 No Route: IV, Me moria (ANES) 10-09 Drug form: l 20:38: INJ, ONCE, Stop date: 10/09/21 14:38:00 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 ceFAZolin 2021-0 No Route: IV, Me moria (ANES) 2 Drug form: l 20:38: INJ, ONCE, Stop date: 10/09/21 14:38:00 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 propofol 2021-0 No Route: IV, Mem oria (ANES) 10-09 Drug form: l 20:33: INJ, ONCE, Stop date: 10/09/21 14:33:00 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 rocuronium 2021-0 No Route: IV, M emoria (ANES) 10-09 Drug form: l 20:33: INJ, ONCE, Stop date: 10/09/21 14:33:00 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 fentaNYL 2021-0 No Route: IV, Mem oria (ANES) - Drug form: l 20:33: INJ, ONCE, Stop date: 10/09/21 14:33:00 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 dexamethaso 0 No Route: IV, Memoria ne (ANES) 10-09 Drug form: l 20:33: INJ, ONCE, Stop date: 10/09/21 14:33:00 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 propofol 2021-0 No Route: IV, Mem oria (ANES) 2- Drug form: l 20:33: INJ, ONCE, Stop date: 10/09/21 14:33:00 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 rocuronium 2021-0 No Route: IV, M emoria (ANES) 2- Drug form: l 20:33: INJ, ONCE, Stop date: 10/09/21 14:33:00 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 fentaNYL 2021-0 No Route: IV, Mem oria (ANES) 2 Drug form: l 20:33: INJ, ONCE, Stop date: 10/09/21 14:33:00 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 dexamethaso No Route: IV, Memoria ne (ANES) - Drug form: l 20:33: INJ, ONCE, Stop date: 10/09/21 14:33:00 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 lidocaine No Route: IV, Me moria (ANES) 2- Drug form: l 20:28: INJ, ONCE, Stop date: 10/09/21 14:28:00 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 lidocaine 2021-0 No Route: IV, Me moria (ANES) 2- Drug form: l 20:28: INJ, ONCE, Stop date: 10/09/21 14:28:00 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 Isolyte S 2021-0 No Route: IV, Me moria PH 7.4 2- Total l (ANES) 1000 19:29: Volume: Her jones mL 00 1,000, Start date: 10/09/21 13:29:00 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, Stop date: 10/09/21 14:29:00 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 Isolyte S 2021-0 No Route: IV, Me moria PH 7.4 2-28 Total l (ANES) 1000 19:29: Volume: Her jones mL 00 1,000, Start date: 10/09/21 13:29:00 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, Stop date: 10/09/21 14:29:00 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 Epinephrine Yes Notes: David katarzyna 0.01 MG/ML 2-28 (Same as: l / Lidocaine 18:26: Xylocaine H ermann Hydrochlori 00 w/Epinephr de 10 MG/ML ine) Injectable Solution Epinephrine Yes Notes: David katarzyna 0.01 MG/ML 2-28 (Same as: l / Lidocaine 18:26: Xylocaine H ermann Hydrochlori 00 w/Epinephr de 10 MG/ML ine) Injectable Solution Lidocaine No 1 patch, David katarzyna 0.05 MG/MG 10-09 Route: l Transdermal 15:00: TOP, Sadi n Patch 00 Daily, Drug form: FILM, Start date: 10/09/21 9:00:00 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, Duration: 30 day, Stop date: 11/07/21 9:00:00 CDT, 0 Levetiracet 2021-0 No 500 mg, 1 M emoria am 500 MG 2-28 tab, l Oral Tablet 15:00: Route: PO, [place] [Keppra] 00 Drug form: TAB, Q12H, Dosing Weight 156, kg, Start date: 10/09/21 9:00:00 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, Duration: 30 day, Stop date: 11/07/21 21:00:00 CDT, 0 Lidocaine 2021-0 No 1 patch, David katarzyna 0.05 MG/MG 10-09 Route: l Transdermal 15:00: TOP, Sadi n Patch 00 Daily, Drug form: FILM, Start date: 10/09/21 9:00:00 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, Duration: 30 day, Stop date: 11/07/21 9:00:00 CDT, 0 Levetiracet 2021-0 No 500 mg, 1 M emoria am 500 MG 2-28 tab, l Oral Tablet 15:00: Route: PO, [place] [Keppra] Drug form: TAB, Q12H, Dosing Weight 156, kg, Start date: 10/09/21 9:00:00 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, Duration: 30 day, Stop date: 11/07/21 21:00:00 CDT, 0 Hydromorpho 2021-0 No Notes: David katarzyna ne - Same as l 13:57: Dilaudid [place] Hydromorpho No Notes: David katarzyna ne 2-28 Same as l 13:57: Dilaudid [place] 00 Reglan No Notes: Memoria 2-28 (Same as: l 08:15: Reglan) [place] 00 Dilaudid 2021-0 No Notes: Memoria 2-28 Same as l 08:15: Dilaudid [place] 00 Reglan 2021-0 No Notes: Memoria 2-28 (Same as: l 08:15: Reglan) [place] Dilaudid 2021-0 No Notes: Memoria 2-28 Same as l 08:15: Dilaudid [place] 00 Sodium 0 No 1,000 mL, Memori a Chloride 10-09 Rate: 75 l 0.9% IV 06:49: ml/hr, [place] 1,000 mL 00 Infuse over: 13.3 hr, Route: IV, Dosing Weight 156 kg, Total Volume: 1,000, Start date: 10/09/21 0:49:00 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, Duration: 30 day, Stop date: 11/08/21 0:48:00 CDT, BSA: 2.9 m2, 0 Sodium No 1,000 mL, Memori a Chloride 2-28 Rate: 75 l 0.9% IV 06:49: ml/hr, [place] 1,000 mL 00 Infuse over: 13.3 hr, Route: IV, Dosing Weight 156 kg, Total Volume: 1,000, Start date: 10/09/21 0:49:00 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, Duration: 30 day, Stop date: 11/08/21 0:48:00 CDT, BSA: 2.9 m2, 0 Docusate No Notes: Memoria 2-28 (Same as: l 03:00: Colace) [place] 00 (Do Not Crush) Docusate No Notes: Memoria 2-28 (Same as: l 03:00: Colace) [place] 00 (Do Not Crush) sennosides, No Notes: David katarzyna CARE HOME 2-28 (Same as: l 03:00: Senokot) [place] 00 Saline No Notes: Memoria Flush 0.9% 2-28 (Same as: l 03:00: BD [place] 00 Posiflush) sennosides, No Notes: David katarzyna CARE HOME 2-28 (Same as: l 03:00: Senokot) [place] 00 Saline No Notes: Memoria Flush 0.9% 2-28 (Same as: l 03:00: BD [place] 00 Posiflush) Sodium No 1,000 mL, Memori a Chloride 2-28 Rate: 50 l 0.9% IV 01:57: ml/hr, [place] 1,000 mL 00 Infuse over: 20 hr, Route: IV, Dosing Weight 156 kg, Total Volume: 1,000, Start date: 10/08/21 19:57:00 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, Duration: 30 day, Stop date: 11/07/21 19:56:00 CDT, BSA: 2.9 m2, 0 Acetaminoph No Notes: Do M emoria en -28 not exceed l 01:57: 4 gm/day. [place] (Same as: Tylenol) Acetaminoph No Notes: David katarzyna en 325 MG / 2-28 (Same as: l Hydrocodone 01:57: [place] Kelly nn Bitartrate 00 325/5) Do 5 MG Oral not exceed Tablet 4gm/day of acetaminop hen. Morphine No Notes: Memoria 2- (Same l 01:57: as:MORPhin e Sulfate) Bisacodyl No Notes: Memori a 2- (Same As: l 01:57: Dulcolax, Bisco-Lax) Ondansetron No Notes: David katarzyna -28 [...] PRN Hypertensi on, Start date: 10/08/21 19:57:00 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, Duration: 3 doses or times, Stop date: [...] Total Volume: 1,000, Start date: 10/08/21 19:57:00 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, Duration: 30 day, Stop date: 11/07/21 19:56:00 CDT, BSA: 2.9 m2, 0 Acetaminoph No Notes: Do M emoria en 2-28 not exceed l 01:57: 4 gm/day. [place] 00 (Same as: Tylenol) Acetaminoph No Notes: David katarzyna en 325 MG / 2-28 (Same as: l Hydrocodone 01:57: [place] Kelly nn Bitartrate 00 325/5) Do 5 MG Oral not exceed Tablet 4gm/day of acetaminop hen. Morphine No Notes: Memoria 2-28 (Same l 01:57: as:MORPhin [place] 00 e Sulfate) Bisacodyl No Notes: Memori a 2-28 (Same As: l 01:57: Dulcolax, [place] Bisco-Lax) Ondansetron No Notes: David katarzyna 2-28 (Same as: l 01:57: Zofran) [place] 00 MEDICATION WASTE Product Size: 4 mg Product Wasted: ___ mg Hydralazine No Notes: David katarzyna 2-28 (Same as: l 01:57: Apresoline [place] 00 ) Push over 5 minutes Labetalol No 10 mg, 2 David katarzyna 2-28 mL, Route: l :57: IVP, Drug form: INJ, Q15Min, Dosing Weight 156, kg, PRN Hypertensi on, Start date: 10/08/21 19:57:00 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, Duration: 3 doses or times, Stop date: Limited # of times, 0 Saline No Notes: Memoria Flush 0.9% - (Same as: l 01:57: BD [place] 00 Posiflush) Insulin No Notes: Memoria regular -28 (Same as: l 01:57: Humulin R) [place] 00 Roll in palms of hands gently; Do not shake vigorously . WASTE: F/P - Black; E - Municipal Trash Bin Stable for 31 days at room temperatur e Expires in days from ____Date Dilaudid No Notes: Memoria 2-28 Same as l 01:30: Dilaudid [place] 00 Dilaudid No Notes: Memoria 2- Same as l 01:30: Dilaudid [place] 00 Levetiracet Yes 500 mg = 1 Memoria am 500 MG 2-24 tab, PO, l Oral Tablet 13:52: Q12H, # 60 [place] [Keppra] 00 tab, 0 Refill(s), Pharmacy: [id number], 190.5, cm, 10/03/21 6:40:00 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, Height, 159.3, kg, 10/03/21 6:40:00 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, Weight docusate Yes 2 cap, PO, Mem oria sodium 50 2-24 QPM, X 10 l MG / 13:52: day, # 20 [place] sennosides, 00 cap, 0 CARE HOME 8.6 MG Refill(s), Oral Pharmacy: [id number], 190.5, cm, 10/03/21 6:40:00 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, Height, 159.3, kg, 10/03/21 6:40:00 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, Weight magnesium Yes 8.725 gm = Me moria citrate 2-24 150 ml, l 58.2 MG/ML 13:52: PO, ONCE, He rmann Oral 00 if no Solution bowel movement in couple days, # 300 ml, 0 Refill(s), Pharmacy: [facility] #[id number], 190.5, cm, 10/03/21 6:40:00 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, Height, 159.3, kg, 10/03/21 6:40:00 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, Weight POLYETHYLEN Yes 17 gm, PO, Memoria E GLYCOL 2-24 Daily, X l 3350 142 13:52: 10 day, # Herm faina MG/ML Oral 00 170 gm, 0 Solution Refill(s), [Miralax] Pharmacy: [id number], 190.5, cm, 10/03/21 6:40:00 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, Height, 159.3, kg, 10/03/21 6:40:00 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, Weight Ondansetron No 4 mg = 1 Me moria 4 MG Oral 2-24 tab, PO, l Tablet 13:52: Q8H, PRN [place] [Zofran] 00 Nausea/vom iting, X 3 day, # 10 tab, 0 Refill(s), Pharmacy: [facility] #[id number], 190.5, cm, 10/03/21 6:40:00 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, Height, 159.3, kg, 10/03/21 6:40:00 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, Weight Acetaminoph Yes 1 tab, PO, Memoria en 325 MG / 2-24 Q4-6H, PRN l Hydrocodone 13:52: Pain Score [place] Bitartrate 00 4-6, X 5 5 MG Oral day, # 30 Tablet tab, 0 [[place] Refill(s), 5/325] other Levetiracet Yes 500 mg = 1 Memoria am 500 MG 2-24 tab, PO, l Oral Tablet 13:52: Q12H, # 60 [place] [Keppra] 00 tab, 0 Refill(s), Pharmacy: [facility] #[id number], 190.5, cm, 10/03/21 6:40:00 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, Height, 159.3, kg, 10/03/21 6:40:00 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, Weight docusate Yes 2 cap, PO, Mem oria sodium 50 2-24 QPM, X 10 l MG / 13:52: day, # 20 [place] sennosides, 00 cap, 0 CARE HOME 8.6 MG Refill(s), Oral Pharmacy: [id number], 190.5, cm, 10/03/21 6:40:00 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, Height, 159.3, kg, 10/03/21 6:40:00 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, Weight magnesium Yes 8.725 gm = Me moria citrate 2-24 150 ml, l 58.2 MG/ML 13:52: PO, ONCE, He rmann Oral 00 if no Solution bowel movement in couple days, # 300 ml, 0 Refill(s), Pharmacy: [facility] #[id number], 190.5, cm, 10/03/21 6:40:00 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, Height, 159.3, kg, 10/03/21 6:40:00 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, Weight POLYETHYLEN Yes 17 gm, PO, Memoria E GLYCOL 2-24 Daily, X l 3350 142 13:52: 10 day, # Herm faina MG/ML Oral 00 170 gm, 0 Solution Refill(s), [Miralax] Pharmacy: [facility] #[id number], 190.5, cm, 10/03/21 6:40:00 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, Height, 159.3, kg, 10/03/21 6:40:00 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, Weight Ondansetron No 4 mg = 1 Me moria 4 MG Oral 2-24 tab, PO, l Tablet 13:52: Q8H, PRN [place] [Zofran] 00 Nausea/vom iting, X 3 day, # 10 tab, 0 Refill(s), Pharmacy: [facility] #[id number], 190.5, cm, 10/03/21 6:40:00 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, Height, 159.3, kg, 10/03/21 6:40:00 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, Weight Acetaminoph Yes 1 tab, PO, Memoria en 325 MG / 2-24 Q4-6H, PRN l Hydrocodone 13:52: Pain Score [place] Bitartrate 00 4-6, X 5 5 MG Oral day, # 30 Tablet tab, 0 [[place] Refill(s), 5/325] other heparin No Notes: Memoria [...] kg, Priority: STAT, Start date: 10/03/21 14:05:00 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, Stop date: 10/03/21 14:05:00 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 Hydromorpho No 0.5 mg, Mem oria ne -22 Route: l 20:05: IVP, ONCE, Dosing Weight 159.3, kg, Priority: STAT, Start date: 10/03/21 14:05:00 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, Stop date: 10/03/21 14:05:00 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 metoprolol 2-0 No Route: IV, M emoria (ANES) - Drug form: l 19:20: INJ, ONCE, [place] Stop date: 10/03/21 13:20:00 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 metoprolol 2022-0 No Route: IV, M emoria (ANES) - Drug form: l 19:20: INJ, ONCE, [place] 00 Stop date: 10/03/21 13:20:00 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 Oxycodone 2-0 No 10 mg, Memori a Hydrochlori - Route: PO, l de 5 MG 19:16: Drug form: Herm faina Oral Tablet 00 TAB, Q4H, Dosing Weight 159.3, kg, PRN Pain Score 7-10, Start date: 10/03/21 13:16:00 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, Duration: 30 day, Stop date: 11/02/21 13:15:00 CDT Oxycodone 2-0 No 10 mg, Memori a Hydrochlori 10-03 Route: PO, l de 5 MG 19:16: Drug form: Herm faina Oral Tablet 00 TAB, Q4H, Dosing Weight 159.3, kg, PRN Pain Score 7-10, Start date: 10/03/21 13:16:00 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, Duration: 30 day, Stop date: 11/02/21 13:15:00 CDT sugammadex 2021-0 No Route: IV, M emoria (ANES) - Drug form: l 18:37: SOLN, [place] 00 ONCE, Stop date: 10/03/21 12:37:00 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 sugammadex 2-0 No Route: IV, M emoria (ANES) - Drug form: l 18:37: SOLN, [place] 00 ONCE, Stop date: 10/03/21 12:37:00 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 ondansetron 2-0 No Route: IV, Memoria (ANES) - Drug form: l 18:22: INJ, ONCE, [place] Stop date: 10/03/21 12:22:00 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 ondansetron 2-0 No Route: IV, Memoria (ANES) - Drug form: l 18:22: INJ, ONCE, [place] 00 Stop date: 10/03/21 12:22:00 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 Dexamethaso No Notes: David katarzyna ne 2-22 [...] 10 MG Oral hen. (Same Tablet as: [place] [[place] 325/10) 10/325] Dilaudid No Notes: Memoria 2-22 Same as l 17:50: Dilaudid Benadryl No Notes: Memoria 2-22 (Same as: l 17:50: Benadryl) phenol No Notes: Memoria 2-22 Chlorasept l 17:50: ic [place] (Same as: Chlorasept ic, Sore Throat [place]) WASTE: F/P - Black; E - [employer] Trash Bin Bisacodyl No Notes: Memori a 2-22 (Same As: l 17:50: Dulcolax, Bisco-Lax) Robaxin No Notes: Memoria 2-22 (Same l 17:50: as:Robaxin ) Melatonin 3 No Notes: David katarzyna MG Extended 2- (Same as: l Release 17:50: Melatonin) faina Tablet Tylenol No Notes: Do Memor ia 2-22 not exceed l 17:50: 4 gm/day. (Same as: Tylenol) Reglan No Notes: Memoria 2-22 (Same as: l 17:50: Reglan) [place] 00 Phenergan No Notes: Do Mem oria 2-22 not give l 17:50: IV push. [place] 00 (Same as: Phenergan) Saline No Notes: Memoria Flush 0.9% 2- Same as: l 17:50: BD [place] 00 Posiflush Sterile Sodium No 1,000 mL, Memori a Chloride 10-03 Rate: 100 l 0.9% IV 17:50: ml/hr, [place] 1,000 mL 00 Infuse over: 10 hr, Route: IV, Dosing Weight 159.3 kg, Total Volume: 1,000, Start date: 10/03/21 11:50:00 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, Duration: 30 day, Stop date: 11/02/21 11:49:00 CDT, BSA: 2.93 m2, 0 Labetalol No 10 mg, 2 David katarzyna 2-22 mL, Route: l 17:50: IVP, Drug form: INJ, Q15Min, Dosing Weight 159.3, kg, PRN Hypertensi on, Start date: 10/03/21 11:50:00 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, Duration: 3 doses or times, Stop date: 10/04/21 0:00:00 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, 0 Hydralazine No Notes: David katarzyna 2-22 (Same as: l 17:50: Apresoline ) Push over 5 minutes Ondansetron No Notes: David katarzyna 2-22 (Same as: l 17:50: Zofran) MEDICATION WASTE Product Size: 4 mg Product Wasted: ___ mg Acetaminoph No Notes: Do M emoria en 325 MG / - not exceed l Hydrocodone 17:50: 4gm/day of [place] Bitartrate 00 acetaminop 10 MG Oral hen. (Same Tablet as: [place] [[place] 325/10) 10/325] Dilaudid No Notes: Memoria 2-22 Same as l 17:50: Dilaudid [place] 00 Benadryl No Notes: Memoria 2-22 (Same as: l 17:50: Benadryl) [place] phenol No Notes: Memoria 2-22 Chlorasept l 17:50: ic [place] (Same as: Chlorasept ic, Sore Throat [place]) WASTE: F/P - Black; E - Municipal Trash Bin Bisacodyl No Notes: Memori a 2-22 (Same As: l 17:50: Dulcolax, Bisco-Lax) Robaxin No Notes: Memoria 2-22 (Same l 17:50: as:Robaxin ) Melatonin 3 No Notes: David katarzyna MG Extended 2- (Same as: l Release 17:50: Melatonin) Herm Tylenol No Notes: Do Memor ia 2-22 [...] Rate: 100 l 0.9% IV 17:50: ml/hr, [place] 1,000 mL 00 Infuse over: 10 hr, Route: IV, Dosing Weight 159.3 kg, Total Volume: 1,000, Start date: 10/03/21 11:50:00 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, Duration: 30 day, Stop date: 11/02/21 11:49:00 CDT, BSA: 2.93 m2, 0 Labetalol No 10 mg, 2 David katarzyna 2-22 mL, Route: l 17:50: IVP, Drug form: INJ, Q15Min, Dosing Weight 159.3, kg, PRN Hypertensi on, Start date: 10/03/21 11:50:00 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, Duration: 3 doses or times, Stop date: 10/04/21 0:00:00 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, 0 lidocaine 2021-0 No Route: IV, Me moria (ANES) 2- Drug form: l 16:45: INJ, ONCE, Stop date: 10/03/21 10:45:00 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 rocuronium 2021-0 No Route: IV, M emoria (ANES) 2- Drug form: l 16:45: INJ, ONCE, Stop date: 10/03/21 10:45:00 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 dexamethaso 2021-0 No Route: IV, Memoria ne (ANES) 2- Drug form: l 16:45: INJ, ONCE, Stop date: 10/03/21 10:45:00 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 lidocaine 2021-0 No Route: IV, Me moria (ANES) 2- Drug form: l 16:45: INJ, ONCE, Stop date: 10/03/21 10:45:00 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 rocuronium 2021-0 No Route: IV, M emoria (ANES) 2- Drug form: l 16:45: INJ, ONCE, Stop date: 10/03/21 10:45:00 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 dexamethaso 2021-0 No Route: IV, Memoria ne (ANES) 2- Drug form: l 16:45: INJ, ONCE, Stop date: 10/03/21 10:45:00 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 phenylephri 2021-0 No Route: IV, Memoria ne (ANES) 2- Drug form: l 16:40: INJ, ONCE, Stop date: 10/03/21 10:40:00 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 phenylephri 2021-0 No Route: IV, Memoria ne (ANES) 2- Drug form: l 16:40: INJ, ONCE, Stop date: 10/03/21 10:40:00 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 Hydralazine 2021-0 No Notes: David katarzyna 2-22 (Same as: l 16:37: Apresoline ) Push over 5 minutes Labetalol 2021-0 No 10 mg, 2 David katarzyna 2-22 mL, Route: l 16:37: IVP, Drug form: INJ, Q5Min, Dosing Weight 159.3, kg, PRN Elevated BP, Start date: 10/03/21 10:37:00 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, Duration: 5 doses or times, Stop date: 10/04/21 0:00:00 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, 0 Oxycodone No Notes: Memori a Hydrochlori 2-22 (Same as: l de 5 MG 16:37: Roxicodone Herm faina Oral Tablet ) Hydromorpho No Notes: David katarzyna ne 2-22 Same as l 16:37: Dilaudid [place] 00 Flumazenil No Notes: Memor ia 2-22 (Same as: l 16:37: Romazicon) [place] 00 Naloxone No Notes: Memoria 2-22 Same as [...] PRN Elevated BP, Start date: 10/03/21 10:37:00 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, Duration: 5 doses or times, Stop date: 10/04/21 0:00:00 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, 0 Oxycodone No Notes: Memori a Hydrochlori 2-22 (Same as: l de 5 MG 16:37: Roxicodone Herm faina Oral Tablet ) Hydromorpho No Notes: David katarzyna ne 2-22 Same as l 16:37: Dilaudid [place] 00 Flumazenil No Notes: Memor ia 2-22 (Same as: l 16:37: Romazicon) [place] 00 Naloxone No Notes: Memoria 2-22 Same as l 16:37: Narcan Ondansetron No Notes: David katarzyna - (Same as: l 16:37: Zofran) MEDICATION WASTE Product Size: 4 mg Product Wasted: ___ mg propofol No Route: IV, Mem oria (ANES) 2- Drug form: l 16:35: INJ, ONCE, Stop date: 10/03/21 10:35:00 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 fentaNYL 2021-0 No Route: IV, Mem oria (ANES) 2- Drug form: l 16:35: INJ, ONCE, Stop date: 10/03/21 10:35:00 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 propofol 0 No Route: IV, Mem oria (ANES) 2- Drug form: l 16:35: INJ, ONCE, Stop date: 10/03/21 10:35:00 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 fentaNYL 2021-0 No Route: IV, Mem oria (ANES) 2- Drug form: l 16:35: INJ, ONCE, Stop date: 10/03/21 10:35:00 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 midazolam 2021-0 No Route: IV, Me moria (ANES) 2- Drug form: l 16:24: SOLN, [place] ONCE, Stop date: 10/03/21 10:24:00 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 ceFAZolin 2021-0 No Route: IV, Me moria (ANES) 2-22 Drug form: l 16:24: INJ, ONCE, Stop date: 10/03/21 10:24:00 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 midazolam 2021-0 No Route: IV, Me moria (ANES) 2-22 Drug form: l 16:24: SOLN, [place] ONCE, Stop date: 10/03/21 10:24:00 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 ceFAZolin 2021-0 No Route: IV, Me moria (ANES) 2-22 Drug form: l 16:24: INJ, ONCE, Stop date: 10/03/21 10:24:00 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 levETIRAcet No Route: IV, Memoria am (ANES) 2- Drug form: l 100 mg 16:20: INJ, Start date: 10/03/21 10:20:00 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, Stop date: 10/03/21 11:20:00 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 levETIRAcet No Route: IV, Memoria am (ANES) 10-03 Drug form: l 100 mg 16:20: INJ, Start Kelly date: 10/03/21 10:20:00 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, Stop date: 10/03/21 11:20:00 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 propofol No Route: IV, Mem oria (ANES) 10 10-03 Drug form: l mg 15:26: INJ, Start date: 10/03/21 9:26:00 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, Stop date: 10/03/21 10:26:00 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 propofol No Route: IV, Mem oria (ANES) 10 10-03 Drug form: l mg 15:26: INJ, Start date: 10/03/21 9:26:00 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, Stop date: 10/03/21 10:26:00 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 Isolyte S No Route: IV, Me moria PH 7.4 10-03 Total l (ANES) 1000 14:26: Volume: Her jones mL 00 1,000, Start date: 10/03/21 8:26:00 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, Stop date: 10/03/21 9:26:00 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 Isolyte S No Route: IV, Me moria PH 7.4 10-03 Total l (ANES) 1000 14:26: Volume: Her jones mL 00 1,000, Start date: 10/03/21 8:26:00 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, Stop date: 10/03/21 9:26:00 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 Isolyte S No Notes: Memori a PH 7.4 10-03 (Same as: l 1,000 mL 12:35: Isolyte S Herm faina 00 PH7.4, Normosol-R PH 7.4, Plasma-Lyt e A ) Acetaminoph No 1,000 mg, M emoria en 10-03 Route: PO, l 12:35: Drug form: [place] 00 TAB, PRE OP, Dosing Weight 160.3, kg, Priority: NOW, Start date: 10/03/21 6:35:00 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, Duration: 1 doses or times Isolyte S No Notes: Memori a PH 7.4 2-22 (Same as: l 1,000 mL 12:35: Isolyte S Herm faina 00 PH7.4, Normosol-R PH 7.4, Plasma-Lyt e A ) Acetaminoph No 1,000 mg, M emoria en 2-22 Route: PO, l 12:35: Drug form: [place] 00 TAB, PRE OP, Dosing Weight 160.3, kg, Priority: NOW, Start date: 10/03/21 6:35:00 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, Duration: 1 doses or times NS + [...] IV l 1000ml 12:00: - Do Not [place] (Premix) 00 Alter 1,000 mL WASTE: F/P [...] PRN, 0 Memoria 2-21 Refill(s) l 18:02: [place] 00 Acetaminoph 2022-0 No 1 tab, PO, Memoria en 300 MG / 2-21 PRN, PRN l Codeine 18:02: Headache Sadi n Phosphate 00 1-5, 0 30 MG Oral Refill(s) Tablet [Tylenol with Codeine #3] Zofran 2021-0 No PRN, 0 Memoria 2-21 Refill(s) l 18:02: [place] 00 Sodium 2021-0 No 250 mL, Memoria Chloride 2- Rate: To l 0.9% 17:06: prime line [place] (titrate) 00 and flush 250 mL remaining blood products., Dosing Weight 160.3, kg, Route: IV, Total Volume: 250, Start Date: 10/02/21 11:06:00 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, Duration: 1 day, Stop date: 10/03/21 11:05:00 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, Replace Every: 24 hr, 0 Sodium 2021-0 No 250 mL, Memoria Chloride - Rate: To l 0.9% 17:06: prime line [place] (titrate) 00 and flush 250 mL remaining blood products., Dosing Weight 160.3, kg, Route: IV, Total Volume: 250, Start Date: 10/02/21 11:06:00 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, Duration: 1 day, Stop date: 10/03/21 11:05:00 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, Replace Every: 24 hr, 0 Acetaminoph 2020-0 [...] en 05-11 Route: PO, l 07:46: ONCE, [place] 00 Dosing Weight 139.409, kg, Start date: 05/11/21 2:46:00 CDT, Stop date: 05/11/21 2:46:00 CDT Acetaminoph 2021-0 No 1,000 mg, M havena en 05-11 Route: PO, l 07:46: ONCE, [place] 00 Dosing Weight 139.409, kg, Start date: 05/11/21 2:46:00 CDT, Stop date: 05/11/21 2:46:00 CDT Iohexol 1-0 No 100 mL, Memoria 05-11 Route: l 07:23: IVP, Drug Form: SOLN, Dosing Weight 139.409, kg, ONCALL, STAT, Start date: 05/11/21 2:23:00 CDT, Duration: 1 doses or times, Dose = 2.2ml/kg, Max dose = 100ml -- "To be infused by Radiology Staff ONLY" Iohexol 1-0 No 100 mL, Memoria 05-11 [...] DAY Medical FOR 10 Branch DAYS levoFLOXaci Yes TAKE 1 Univ ers n [...] tablet HOURS FOR Branch 10 DAYS amoxicillin Yes TAKE 1 Univ ers -clavulanat 5-24 TABLET BY ity of e 875-125 00:00: MOUTH [place] mg per 00 EVERY 12 Medical tablet HOURS FOR Branch 10 DAYS Kenalog Kenalog 2019-08 No 40mg Common (Triamcinol (Triamcinol 0-12 S pirit one) one) 00:00: - [facility] 00 [facility] Kenalog Kenalog 2019- No 40mg Common (Triamcinol (Triamcinol 0-12 S pirit one) one) 00:00: - [facility] 00 [facility] Kenalog Kenalog 2019- No 40mg Common (Triamcinol (Triamcinol 0-12 S pirit one) one) 00:00: - [facility] 00 [facility] Kenalog Kenalog 2019- No 40mg Common (Triamcinol (Triamcinol 0-12 S pirit one) one) 00:00: - [facility] 00 [facility] Kenalog Kenalog 2019- No 40mg Common (Triamcinol (Triamcinol 0-12 S pirit one) one) 00:00: - [facility] 00 [facility] Kenalog Kenalog 2019- No 40mg Common (Triamcinol (Triamcinol 0-12 S pirit one) one) 00:00: - [facility] Kenalog Kenalog 2020-1 No 40mg Common (Triamcinol (Triamcinol 0-12 S pirit one) one) 00:00: - [facility] 00 [facility] Amoxicillin Amoxicillin 2019-1 2020- No 1{table BID Amoxicilli -Pot -Pot 0-12 10-22 t} n-Pot Clavulanate Clavulanate 00:00: 00:00 Clavulanat 875-125 MG 875-125 MG 00 :00 e 875-125 MG Promethazin Promethazin 2020-0 2020- No Norah 1 tablet Common e HCl e HCl 12-07 05-03 [place] as needed Spirit 00:00: 00:00 for n/v - [facility] 00 :00 [facility] Bupivicaine Bupivicaine 2020-0 No 4mL Common [place] Cedar 4-06 Spirit 00:00: - [facility] 00 [facility] Kenalog Kenalog 2020-0 No 40mg Common (Triamcinol (Triamcinol 4-06 S pirit one) one) 00:00: - [facility] 00 [facility] Bupivicaine Bupivicaine 2020-0 No 4mL Common [place] C[place] 4-06 Spirit 00:00: - [facility] 00 [facility] Kenalog Kenalog 2020-0 No 40mg Common (Triamcinol (Triamcinol 4-06 S pirit one) one) 00:00: - [facility] 00 [facility] Bupivicaine Bupivicaine 2020-0 No 4mL Common [place] 4-06 Spirit 00:00: - [facility] 00 [facility] Kenalog Kenalog 2020-0 No 40mg Common (Triamcinol (Triamcinol 4-06 S pirit one) one) 00:00: - [facility] 00 [facility] Bupivicaine Bupivicaine 2020-0 No 4mL Common [place] 4-06 Spirit 00:00: - [facility] 00 [facility] Kenalog Kenalog 2020-0 No 40mg Common (Triamcinol (Triamcinol 4-06 S pirit one) one) 00:00: - [facility] 00 [facility] Bupivicaine Bupivicaine 2020-0 No 4mL Common [place] 4-06 Spirit 00:00: - [facility] 00 [facility] Kenalog Kenalog 2020-0 No 40mg Common (Triamcinol (Triamcinol 4-06 S pirit one) one) 00:00: - [facility] 00 [facility] Bupivicaine Bupivicaine 2020-0 No 4mL Common [place] 4-06 Spirit 00:00: - [facility] 00 [facility] Kenalog Kenalog 2020-0 No 40mg Common (Triamcinol (Triamcinol 4-06 S pirit one) one) 00:00: - [facility] 00 [facility] Bupivicaine Bupivicaine 2020-0 No 4mL Common [place] 4-06 Spirit 00:00: - [facility] 00 [facility] Kenalog Kenalog 2020-0 No 40mg Common (Triamcinol (Triamcinol 4-06 S pirit one) one) 00:00: - [facility] 00 [facility] ondansetron 2020-0 Yes [id number] 4mg Take 1 Univers (ZOFRAN 3-11 tablet by ity of ODT) 4 mg 00:00: mouth [place] disintegrat 00 every 8 Medic al ing tablet (eight) Branch hours as needed for Nausea and Vomiting (N/V). benzonatate 2020-0 Yes [id number] 200mg Take 1 Univers 200 mg 3-11 capsule by ity of capsule 00:00: mouth 3 [place] 00 (three) Medical times Branch daily as needed for Cough for up to 20 doses. ibuprofen 2020-0 Yes [id number] 600mg Take 1 U nivers 600 mg 3-11 tablet by ity of tablet 00:00: mouth [place] 00 every 6 Medical (six) Branch hours as needed for Pain (scale 4-6). ondansetron 2020-0 Yes [id number] 4mg Take 1 Univers (ZOFRAN 3-11 tablet by ity of ODT) 4 mg 00:00: mouth [place] disintegrat 00 every 8 Medic al ing tablet (eight) Branch hours as needed for Nausea and Vomiting (N/V). benzonatate 2020-0 Yes [id number] 200mg Take 1 Univers 200 mg 3-11 capsule by ity of capsule 00:00: mouth 3 [place] 00 (three) Medical times Branch daily as needed for Cough for up to 20 doses. ibuprofen 2020-0 Yes [id number] 600mg Take 1 U nivers 600 mg [...] Pain Score 4-6, Start date: 07/09/18 16:24:00 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 Oxycodone 2017-08 No 5 mg, Memoria Hydrochlori 09-08 Route: PO, l de 5 MG 22:24: Drug form: Herm faina Oral Tablet 00 TAB, ONCE, Dosing Weight 139.409, kg, PRN Pain Score 4-6, Start date: 07/09/18 16:24:00 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 Promethazin 2017-08 No Notes: Do M emoria [...] Memori a 09-08 final l 21:26: concentrat [place] 00 ion 5 mg/mL Acetaminoph 2017-08 No Notes: Max Memoria en 09-08 acetaminop l 21:26: hen 4000 [place] 00 mg/day (4 gm/day). (Same as: Tylenol Extra Strength) Fentanyl 2017-08 No Notes: Memoria 09-08 (Same as: l 21:26: Sublimaze) [place] 00 Preservati ve free. Hydralazine 2017-08 No Notes: David katarzyna 09-08 (Same as: l 21:26: Apresoline ) Push over 5 minutes Labetalol 2017-08 No 10 mg, 2 David katarzyna -28 mL, Route: l 21:26: IVP, Drug form: INJ, Q5Min, Dosing Weight 139.409, kg, PRN Elevated BP, Start date: 07/09/18 15:26:00 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, Duration: 5 doses or times, Stop date: [...] en 09-08 acetaminop l 21:26: hen 4000 [place] 00 mg/day (4 gm/day). (Same as: Tylenol [...] PRN Elevated BP, Start date: 07/09/18 15:26:00 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, Duration: 5 doses or times, Stop date: [...] 21:19: INJ, ONCE, Stop date: 07/09/18 15:19:00 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 ondansetron 2017-08 No Route: IV, Memoria (ANES) 09-08 Drug form: l 21:19: INJ, ONCE, Stop date: 07/09/18 15:19:00 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 ceFAZolin 2017-08 No Route: IV, Me moria (ANES) 09-08 Drug form: l 20:43: INJ, ONCE, Stop date: 07/09/18 14:43:00 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 lidocaine 2017-08 No Route: IV, Me moria (ANES) 09-08 Drug form: l 20:43: INJ, ONCE, Stop date: 07/09/18 14:43:00 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 propofol 2017-08 No Route: IV, Mem oria (ANES) 09-08 Drug form: l 20:43: INJ, ONCE, Stop date: 07/09/18 14:43:00 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 fentaNYL 2017-08 No Route: IV, Mem oria (ANES) 09-08 Drug form: l 20:43: INJ, ONCE, Stop date: 07/09/18 14:43:00 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 ceFAZolin 2017-08 No Route: IV, Me moria (ANES) 09-08 Drug form: l 20:43: INJ, ONCE, Stop date: 07/09/18 14:43:00 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 lidocaine 2017-08 No Route: IV, Me moria (ANES) 09-08 Drug form: l 20:43: INJ, ONCE, Stop date: 07/09/18 14:43:00 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 propofol 2017-08 No Route: IV, Mem oria (ANES) 09-08 Drug form: l 20:43: INJ, ONCE, Stop date: 07/09/18 14:43:00 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 fentaNYL 2017-08 No Route: IV, Mem oria (ANES) 09-08 Drug form: l 20:43: INJ, ONCE, Stop date: 07/09/18 14:43:00 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 metoclopram 2017-08 No Route: IV, Memoria debbie (ANES) 09-08 Drug form: l 20:38: INJ, ONCE, Stop date: 07/09/18 14:38:00 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 famotidine 2017-08 No Route: IV, M emoria (ANES) 09-08 Drug form: l 20:38: INJ, ONCE, Stop date: 07/09/18 14:38:00 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 dexamethaso 2017-08 No Route: IV, Memoria ne (ANES) 09-08 Drug form: l 20:38: INJ, ONCE, Stop date: 07/09/18 14:38:00 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 midazolam 2017-08 No Route: IV, Me moria (ANES) 09-08 Drug form: l 20:38: SOLN, [place] 00 ONCE, Stop date: 07/09/18 14:38:00 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 metoclopram 2017-08 No Route: IV, Memoria debbie (ANES) 09-08 Drug form: l 20:38: INJ, ONCE, [place] 00 Stop date: 07/09/18 14:38:00 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 famotidine 2017-08 No Route: IV, M emoria (ANES) 09-08 Drug form: l 20:38: INJ, ONCE, [place] 00 Stop date: 07/09/18 14:38:00 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 dexamethaso 2017-08 No Route: IV, Memoria ne (ANES) 09-08 Drug form: l 20:38: INJ, ONCE, [place] 00 Stop date: 07/09/18 14:38:00 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 midazolam 2017-08 No Route: IV, Me moria (ANES) 09-08 Drug form: l 20:38: SOLN, [place] 00 ONCE, Stop date: 07/09/18 14:38:00 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 Lactated 2017-08 No Route: IV, Mem oria Ringers 09-08 Total l Injection 19:45: Volume: Kelly nn IV (ANES) 00 1,000, 1000 mL Start date: 07/09/18 13:45:00 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, Stop date: 07/09/18 14:45:00 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 Lactated 2017-08 No Route: IV, Mem oria Ringers 09-08 Total l Injection 19:45: Volume: Kelly nn IV (ANES) 00 1,000, 1000 mL Start date: 07/09/18 13:45:00 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, Stop date: 07/09/18 14:45:00 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 Famotidine 2017-08 No Notes: Memor ia 40 MG Oral 09-08 (Same as: l Tablet 19:37: Pepcid) [place] [Pepcid] Famotidine 2017-08 No Notes: Memor ia 40 MG Oral 09-08 (Same as: l Tablet 19:37: Pepcid) [place] [Pepcid] Celebrex 2017-08 No 200 mg, Memori a 09-08 Route: PO, l 19:00: Drug form: [place] 00 CAP, ONCALL, Dosing Weight 140.909, kg, Start date: 07/09/18 13:00:00 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, Duration: 30 day, Stop date: 08/08/18 12:59:00 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 Lidocaine 2017-08 No Notes: Memori a Hydrochlori [...] Weight 140.909, kg, Start date: 07/09/18 13:00:00 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, Duration: 30 day, Stop date: 08/08/18 12:59:00 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 Lidocaine 2017-08 No Notes: Memori a Hydrochlori -28 Preservati l de 10 MG/ML 19:00: ve free. He rmann Injectable 00 (Same as: Solution Xylocaine MPF) Famotidine 2017-08 No Notes: Memor ia 09-08 (Same as: l 19:00: Pepcid) [place] 00 Can be dilute in 5-10cc NS IVP: Slow IV push over at least 2 minutes. Zofran 2017-08 No 4 mg, Memoria 09-08 Route: l 18:53: IVP, Drug [place] 00 form: INJ, ONCE, Dosing Weight 139.409, kg, Priority: STAT, Start date: 07/09/18 12:53:00 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, Stop date: 07/09/18 12:53:00 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 Zofran 2017-08 No 4 mg, Memoria 09-08 Route: l 18:53: IVP, Drug [place] 00 form: INJ, ONCE, Dosing Weight 139.409, kg, Priority: STAT, Start date: 07/09/18 12:53:00 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, Stop date: 07/09/18 12:53:00 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 Tylenol 2017-08 No 1,000 mg, Memor ia 09-08 Route: PO, l 18:20: ONCE, [place] 00 Dosing Weight 140.909, kg, Priority: STAT, Start date: 07/09/18 12:20:00 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, Stop date: 07/09/18 12:20:00 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 Tylenol 2017-08 No 1,000 mg, Memor ia 09-08 Route: PO, l 18:20: ONCE, [place] 00 Dosing Weight 140.909, kg, Priority: STAT, Start date: 07/09/18 12:20:00 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, Stop date: 07/09/18 12:20:00 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 Insulin 2017-08 No Notes: Memoria Lispro 09-08 (Same as: l 18:18: Humalog ) [place] Roll in palms of hands gently; Do not shake `vigorousl y. "Single Patient Use Only " WASTE: F/P - Black; E - Municipal Trash Bin Stable for 28 days at room temperatur e. Expires in days from ____Date Calcium 2017-08 No 1,000 mL, Memor ia Chloride 09-08 Rate: 25 l 0.0014 18:18: ml/hr, [place] MEQ/ML / 00 Infuse Potassium over: 40 Chloride hr, Route: 0.004 IV, Dosing MEQ/ML / Weight Sodium 140.909 Chloride kg, Total 0.103 Volume: MEQ/ML / 1,000, Sodium Start Lactate date: 0.028 07/09/18 MEQ/ML 12:18:00 Injectable 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, Solution Duration: 30 day, Stop date: 08/08/18 12:17:00 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, 2.75, m2 Insulin 2017-08 No Notes: Memoria Lispro 09-08 (Same as: l 18:18: Humalog ) [place] 00 Roll in palms of hands gently; Do not shake `vigorousl y. "Single Patient Use Only " WASTE: F/P - Black; E - Municipal Trash Bin Stable for 28 days at room temperatur e. Expires in days from ____Date Calcium 2017-08 No 1,000 mL, Memor ia Chloride 09-08 Rate: 25 l 0.0014 18:18: ml/hr, [place] MEQ/ML / 00 Infuse Potassium over: 40 Chloride hr, Route: 0.004 IV, Dosing MEQ/ML / Weight Sodium 140.909 Chloride kg, Total 0.103 Volume: MEQ/ML / 1,000, Sodium Start Lactate date: 0.028 07/09/18 MEQ/ML 12:18:00 Injectable 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, Solution Duration: 30 day, Stop date: 08/08/18 12:17:00 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, 2.75, m2 ceFAZolin + 2017-08 No Notes: [...] Total Volume: 1,000, Start date: 07/09/18 6:00:00 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, Duration: 30 day, Stop date: 08/08/18 5:59:00 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, 2.75, m2 ceFAZolin + 2017-08 No Notes: David katarzyna sterile 09-08 (Same As: l water 30 mL 12:00: Ancef, Herm faina 00 Kefzol) MEDICATION WASTE Product Size: 1000 mg Product Wasted: ___ mg Lactated 2017-08 No 1,000 mL, David katarzyna Ringers 09-08 Rate: KVO l Injection 12:00: rate, [place] IV 1,000 mL 00 Route: IV, Dosing Weight 140.909 kg, Total Volume: 1,000, Start date: 07/09/18 6:00:00 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, Duration: 30 day, Stop date: 08/08/18 5:59:00 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, 2.75, m2 Norvasc 2017- Yes See Memoria 09-07 Instructio l 18:43: ns, PO [place] 00 Daily, 0 Refill(s) Norvasc 2017-08 Yes See Memoria 09-07 Instructio l 18:43: ns, PO [place] 00 Daily, 0 Refill(s) Amlodipine 2017-08 Yes See Memoria 09-07 Instructio l 18:42: ns, PO [place] 00 Daily, 0 Refill(s) Amlodipine 2017-08 Yes See Memoria 1-27 Instructio l 18:42: ns, PO [place] 00 Daily, 0 Refill(s) amLODIPine amLODIPine 2017-08 [...] 0-05 Route: PO, l 11:01: Drug form: [place] 00 TABDIS, ONCE, Dosing Weight 144.091, kg, Priority: STAT, Start date: 05/16/18 6:01:00 CDT, Stop date: 05/16/18 6:01:00 CDT Morphine 2018-1 No 8 mg, Memoria 0-05 Route: IM, l 11:01: ONCE, Dosing Weight 144.091, kg, Priority: STAT, Start date: 05/16/18 6:01:00 CDT, Stop date: 05/16/18 6:01:00 CDT Losartan Losartan No 1{table QD Losartan Potassium-H [...] No 1{table Zofran 8 t_as_ne MG eded} Zofran Zofran Yes Norah 1 tablet Commo n [place] as needed [facility] Losartan Losartan Yes Norah 1 tablet C ommon Potassium-H Potassium-H [place] [facility] CTZ [facility] Hydrocodone Hydrocodone Yes Norah 1 tablet Common -Acetaminop -Acetaminop [place] as needed [facility] Adderall XR Adderall XR Yes Nroah 1 capsule Common [place] in the [facility] Omeprazole Omeprazole Yes Norah 1 capsule Common [place] 30 minutes [facility] before [facility] Dicyclomine Dicyclomine Yes Norah 1 tablet Common HCl HCl [place] [facility] Omeprazole Omeprazole No QD Omeprazole [...] 5-325 eded} ophen MG MG 5-325 MG Pantoprazol Pantoprazol No Pantoprazo e Sodium 40 e Sodium 40 le Sodium MG MG 40 MG Losartan Losartan No Losartan Potassium Potassium Potassium 100 MG 100 MG 100 MG Topiramate Topiramate No 1{table QD Topiramate 25 MG 25 MG t} 25 MG Losartan Losartan No 1{table QD Losartan Potassium Potassium t} Potassium 100 MG 100 MG 100 MG Zofran 8 MG Zofran 8 MG No 1{table Zofran 8 t_as_ne MG eded} Omeprazole Omeprazole No QD Omeprazole 40 MG 40 MG 40 MG Ondansetron Ondansetron No Ondansetro HCl 4 MG HCl 4 MG n HCl 4 MG traMADol traMADol No QD traMADol HCl 50 MG HCl 50 MG HCl 50 MG Pantoprazol Pantoprazol No Pantoprazo e Sodium 40 e Sodium 40 le Sodium MG MG 40 MG Losartan Losartan No Losartan Potassium Potassium Potassium 100 MG 100 MG 100 MG Topiramate Topiramate No 1{table QD Topiramate 25 MG 25 MG t} 25 MG Losartan Losartan No 1{table QD Losartan Potassium Potassium t} Potassium 100 MG 100 MG 100 MG Zofran 8 MG Zofran 8 MG No 1{table Zofran 8 t_as_ne MG eded} Omeprazole Omeprazole No QD Omeprazole 40 MG 40 MG 40 MG Ondansetron Ondansetron No Ondansetro HCl 4 MG HCl 4 MG n HCl 4 MG traMADol traMADol No QD traMADol HCl 50 MG HCl 50 MG HCl 50 MG Losartan Losartan No 1{table QD Losartan [...] 5-325 eded} ophen MG MG 5-325 MG No known No [facility] Ordered Filled Immunization Date Status Comments [facility] e Immunization Name Name influenza virus 2022-05-19 [facility]pleted [facility], 15:57:00 [place] inactivated Influenza, 2022-05-19 Completed [facility] injectable, 00:00:00 quadrivalent (afluria, fluzone) Influenza, 2022-05-19 Completed [facility] injectable, 00:00:00 quadrivalent (afluria, fluzone) Influenza, 2022-05-19 Completed [facility] injectable, 00:00:00 quadrivalent (afluria, fluzone) Influenza, 2022-05-19 [facility]pleted [facility] injectable, 00:00:00 quadrivalent (afluria, fluzone) Influenza, 2022-05-19 Completed [facility] injectable, 00:00:00 quadrivalent (afluria, fluzone) COVID-19 Pfizer 2021-05-06 [facility]00 COVID-19 Pfizer 2021-05-06 [facility] Vaccination 00:00:00 (PURPLE-DILUTE) Kenmichel Kenalog 2020-05-23 Completed [facility] - (Triamcinolone) (Triamcinolone) 11:35:00 [facility] Kenalog Kenalog 2020-05-23 Completed [facility] - (Triamcinolone) (Triamcinolone) 11:35:00 [facility] Kenmichel Kenalog 2020-05-23 Completed [facility] - (Triamcinolone) (Triamcinolone) 11:35:00 [facility] Kenmichel Kenalog 2020-05-23 Completed [facility] - (Triamcinolone) (Triamcinolone) 11:35:00 [facility] Kenmichel Kenalog 2020-05-23 Completed [facility] - (Triamcinolone) (Triamcinolone) 11:35:00 [facility] Jaci Beatty 2020-05-23 Completed [facility] - (Triamcinolone) (Triamcinolone) 11:35:00 [facility] Kenmichel Kenalog 2020-05-23 Completed [facility] - (Triamcinolone) (Triamcinolone) 11:35:00 [facility] Bupivicaine Cedar Bupivicaine Cedar 2019-11-16 Completed [facility] - 11:23:00 [facility] Bupivicaine Cedar Bupivicaine Cedar 2019-11-16 Completed [facility] - 11:23:00 [facility] Bupivicaine Cedar Bupivicaine Cedar 2019-11-16 Completed [facility] - 11:23:00 [facility] Bupivicaine Cedar Bupivicaine Cedar 2019-11-16 Completed [facility] - 11:23:00 [facility] Bupivicaine Cedar Bupivicaine Cedar 2019-11-16 Completed [facility] - 11:23:00 [facility] Bupivicaine Cedar Bupivicaine Cedar 2019-11-16 Completed [facility] - 11:23:00 [facility] Bupivicaine Cedar Bupivicaine Cedar 2019-11-16 Completed [facility] - 11:23:00 [facility] Kenalog Kenalog 2019-11-16 Completed [facility] - (Triamcinolone) (Triamcinolone) 11:22:00 [facility] Kenalog Kenalog 2019-11-16 Completed [facility] - (Triamcinolone) (Triamcinolone) 11:22:00 [facility] Kenalog Kenalog 2019-11-16 Completed [facility] - (Triamcinolone) (Triamcinolone) 11:22:00 [facility]16 Com[facility] - (Triamcinolone) (Triamcinolone) 11:22:00 [facility] 2019-11-16 Completed [facility] - (Triamcinolone) (Triamcinolone) 11::00 [facility] Kenalog Kenalog 2019-11-16 Completed [facility] - (Triamcinolone) (Triamcinolone) 11:22:00 [facility] Kenalog Kenalog 2019-11-16 Completed [facility] - (Triamcinolone) (Triamcinolone) 11:22:00 [facility] Fluzone 2018-06-03 Completed [facility] Quadrivalent 0.5 ML 14:35:00 Intramuscular Suspension Meningococcal Group Meningococcal Group Unknown Completed [facility] Pneumovax (PPSV23) Pneumovax (PPSV23) Unknown Completed [facility] Meningococcal Group Meningococcal Group Unknown Completed [facility] Pneumovax (PPSV23) Pneumovax (PPSV23) Unknown Completed [facility] COVID-19 Pfizer 12 Unknown [facility]pleted [facility] (PURPLE-DILUTE) COVID-19 Pfizer 12 Unknown Completed [facility] (PURPLE-DILUTE) Influenza, Unknown Com[facility] injectable, quadrivalent (afluria, fluzone) Vital Signs Vital Name Observation Time Observation Value Comments Source Body height 2023-04-23 190.5 cm [facility] 20:33:00 Body weight 2023-04-23 106.595 kg [facility] 20:33:00 BMI 2023-04-23 29.37 kg/m2 [facility] 20:33:00 Systolic blood 2023-04-23 129 mm[Hg] [facility] pressure 19:30:00 Diastolic blood 2023-04-23 88 mm[Hg] [facility] pressure 19:30:00 Heart rate 2023-04-23 92 /min [facility] 19:30:00 Body temperature 2023-04-23 36.28 Chrissie [facility] 19:30:00 Respiratory rate 2023-04-23 18 /min [facility] 19:30:00 Body height 2023-04-23 190.5 cm [facility] 19:30:00 Body weight 2023-04-23 153.588 kg [facility] 19:30:00 BMI 2023-04-23 42.32 kg/m2 [facility] 19:30:00 Oxygen saturation 2023-04-23 98 /min [facility] in Arterial blood 19:30:00 by Pulse oximetry Systolic blood 2023-03-27 178 mm[Hg] [place] of pressure 01:00:00 [facility] Diastolic blood 2023-03-27 111 mm[Hg] [place] [facility] f pressure 01:00:00 [facility] Heart rate 2023-03-27 74 /min [facility] 01:00:00 [facility] Body temperature 2023-03-27 36.67 Chrissie [facility] 01:00:00 [facility] Oxygen saturation 2023-03-27 99 /min [facility] in Arterial blood 01:00:00 [facility] by Pulse oximetry [place] Respiratory rate 2023-03-26 18 /min [facility] 21:22:00 [facility] Body height 2023-03-26 190.5 cm [facility] 21:22:00 [facility] Body weight 2023-03-26 150.141 kg [facility] 21:22:00 [facility] BMI 2023-03-26 41.37 kg/m2 [facility] 21:22:00 [facility] Body height 2023-03-13 190.5 cm [facility] 18:23:00 Body weight 2023-03-13 158 kg [facility] 18:23:00 BMI 2023-03-13 43.54 kg/m2 [facility] 18:23:00 HEIGHT 2022-11-14 184.2 cm 14:00:00 WEIGHT 2022-11-14 165.518 kg 14:00:00 HEIGHT 2022-11-14 184.2 cm 14:00:00 WEIGHT 2022-11-14 165.518 kg 14:00:00 Body height 2022-09-28 160 cm [facility] 21:52:00 Body weight 2022-09-28 158.759 kg [facility] 21:52:00 BMI 2022-09-28 62.00 kg/m2 [facility] 21:52:00 height 2022-09-27 72 [in_i] [facility] - 14:20:00 [facility] weight 2022-09-27 360.1 [lb_av] [facility] - 14:20:00 [facility] temperature 2022-09-27 97.3 [degF] [facility] - 14:20:00 [facility] bmi 2022-09-27 48.83 kg/m2 [facility] - 14:20:00 [facility] oximetry 2022-09-27 99 % [facility] - 14:20:00 [facility] respiratory rate 2022-09-27 18 /min [facility] - 14:20:00 [facility] blood pressure 2022-09-27 138 mm[Hg] [facility] - systolic 14:20:00 [facility] blood pressure 2022-09-27 75 mm[Hg] [facility] - diastolic 14:20:00 [facility] Body height 2022-09-20 190.5 cm [facility] 14:46:00 Body weight 2022-09-20 158.759 kg [facility] 14:46:00 BMI 2022-09-20 43.75 kg/m2 [facility] 14:46:00 Body height 2022-07-27 190.5 cm [facility] 14:41:00 Body weight 2022-07-27 158.305 kg [facility] 14:41:00 BMI 2022-07-27 43.62 kg/m2 [facility] 14:41:00 height 2022-06-22 72 [in_i] [facility] - 11:20:00 [facility] weight 2022-06-22 343 [lb_av] [facility] - 11:20:00 [facility] temperature 2022-06-22 96.5 [degF] [facility] - 11:20:00 [facility] bmi 2022-06-22 46.51 kg/m2 [facility] - 11:20:00 [facility] oximetry 2022-06-22 97 % [facility] - 11:20:00 [facility] respiratory rate 2022-06-22 18 /min [facility] - 11:20:00 [facility] blood pressure 2022-06-22 141 mm[Hg] [facility] - systolic 11:20:00 [facility] blood pressure 2022-06-22 74 mm[Hg] [facility] - diastolic 11:20:00 [facility] Systolic blood 2022-05-16 110 mm[Hg] [...] 2021-04-06 72 [in_i] [facility] - 14:30:00 [facility] weight 2021-04-06 319 [lb_av] [facility] - 14:30:00 [facility] temperature 2021-04-06 98 [degF] [facility] - 14:30:00 [facility] bmi 2021-04-06 43.26 kg/m2 [facility] - 14:30:00 [facility] blood pressure 2021-04-06 121 mm[Hg] [facility] - systolic 14:30:00 [facility] blood pressure 2021-04-06 76 mm[Hg] [facility] - diastolic 14:30:00 [facility] height 2020-07-12 72 [in_i] [facility] - 16:30:00 [facility] weight 2020-07-12 318.3 [lb_av] [facility] - 16:30:00 [facility] temperature 2020-07-12 97.5 [degF] [facility] - 16:30:00 [facility] bmi 2020-07-12 43.16 kg/m2 [facility] - 16:30:00 [facility] oximetry 2020-07-12 97 % [facility] - 16:30:00 [facility] respiratory rate 2020-07-12 18 /min [facility] - 16:30:00 [facility] blood pressure 2020-07-12 129 mm[Hg] [facility] - systolic 16:30:00 [facility] blood pressure 2020-07-12 64 mm[Hg] [facility] - diastolic 16:30:00 [facility] height 2020-05-23 72 [in_i] [facility] - 11:20:00 [facility] weight 2020-05-23 314.4 [lb_av] [facility] - 11:20:00 [facility] temperature 2020-05-23 97.2 [degF] [facility] - 11:20:00 [facility] bmi 2020-05-23 42.64 kg/m2 [facility] - 11:20:00 [facility] oximetry 2020-05-23 98 % [facility] - 11:20:00 [facility] respiratory rate 2020-05-23 18 /min [facility] - 11:20:00 [facility] blood pressure 2020-05-23 140 mm[Hg] [facility] - systolic 11:20:00 [facility] blood pressure 2020-05-23 74 mm[Hg] [facility] - diastolic 11:20:00 [facility] Systolic blood 2023-01-07 167 mm[Hg] [facility] 21:28:57 Hospital Diastolic blood 2023-01-07 79 mm[Hg] [facility] 21:28:57 Hospital Heart rate 2023-01-07 104 /min [facility] 21:28:57 [facility] Body temperature 2023-01-07 35.67 Chrissie [facility] 21:28:57 Hospital Respiratory rate 2023-01-07 16 /min [facility] 21:28:57 Hospital Oxygen saturation 2023-01-07 96 /min [facility] in Arterial blood 21:28:57 Hospital by Pulse oximetry Body height 2023-01-07 190.5 cm [facility] 03:49:11 Hospital Body weight 2023-01-07 162.751 kg [facility] 03:49:11 [facility] BMI 2023-01-07 44.85 kg/m2 [facility] 03:49:11 [facility] Systolic blood 2022-11-14 149 mm[Hg] [facility] pressure 14:13:00 [facility] Center Diastolic blood 2022-11-14 93 mm[Hg] [facility] pressure 14:13:00 [facility] Heart rate 2022-11-14 73 /min [facility] 14:13:00 [facility] Center Body temperature 2022-11-[address] [facility] 14[facility]:00 [facility] Body height 2022-11-[address] [facility] 14:00:00 [facility] Body weight 2022-11-[address] [facility] 14:00:00 [facility] BMI 2022-11-14 48.81 kg/m2 [facility] 14:00:00 [facility] Respitory Rate 2022-05-19 [facility] faina 14:30:00 Respitory Rate 2022-05-19 [facility] faina 14:00:00 Systolic (mm Hg) 2022-05-19 [facility] rmann 14:00:00 Diastolic (mm Hg) 2022-05-19 [facility] ermann 14:00:00 Respitory Rate 2022-05-19 [facility] faina 13:00:00 Systolic (mm Hg) 2022-05-19 [facility] rmann 13:00:00 Diastolic (mm Hg) 2022-05-19 [facility] ermann 13:00:00 Temperature Oral 2022-05-19 98.3 F [facility] rmann (F) 12:36:32 Systolic (mm Hg) 2022-05-19 [facility] rmann 12:00:00 Diastolic (mm Hg) 2022-05-19 [facility] ermann 12:00:00 Temperature Oral 2022-05-19 97.4 F [facility] rmann (F) 08:24:17 Temperature Oral 2022-05-19 98.5 F [facility] rmann (F) 03:59:28 Height 2022-05-17 [facility]5 [facility] 04[facility]38[facility]22-05-17 [facility] n 23:44:00 Temperature Oral 2021-10-08 98.6 F [facility] rmann (F) 23:44:00 Heart Rate 2021-10-05 [facility] 13:48:13 Respitory Rate 2021-10-05 [facility] 13:48:13 Systolic (mm Hg) 2021-10-05 [facility] 13:47:41 Diastolic (mm Hg) 2021-10-05 [facility] 13:47:41 Heart Rate 2021-10-05 [facility] 13:47:41 Temperature Oral 2021-10-05 99.2 F [facility] rmann (F) 13:47:17 Heart Rate 2021-10-05 [facility] 09:39:43 Respitory Rate 2021-10-05 [facility] 09:39:43 Systolic (mm Hg) 2021-10-05 [facility] 09:39:35 Diastolic (mm Hg) 2021-10-05 [facility] 09:39:35 Temperature Oral 2021-10-05 98.4 F [facility] rmann (F) 09:38:41 Respitory Rate 2021-10-05 [facility] 06:44:26 Systolic (mm Hg) 2021-10-05 [facility] 06:44:17 Diastolic (mm Hg) 2021-10-05 [facility] 06:44:17 Temperature Oral 2021-10-05 98.7 F [facility] He rmann (F) 06:42:51 Height 2021-10-03 190.5 cm [facility] 12:40:00 Weight 2021-10-03 [facility] 12:40:00 BMI Calculated 2021-10-03 [facility] 12:40:00 Height 2021-10-02 190.5 cm [facility] 16:30:00 Weight 2021-10-02 [facility] 16:30:00 BMI Calculated 2021-10-02 [facility] 16:30:00 Systolic (mm Hg) 2021-05-11 [facility] 13:50:00 Diastolic (mm Hg) 2021-05-11 [facility] ermann 13:50:00 Temperature Oral 2021-05-11 98.5 F [facility] rmann (F) 13:50:00 Systolic (mm Hg) 2021-05-11 [facility] He rmann 12:22:00 Diastolic (mm Hg) 2021-05-11 [facility] ermann 12:22:00 Systolic (mm Hg) 2021-05-11 [facility] He rmann 11:21:00 Diastolic (mm Hg) 2021-05-11 [facility] H ermann 11:21:00 Respitory Rate 2021-05-11 [facility] 11:21:00 Respitory Rate 2021-05-11 [facility] 10:42:00 Respitory Rate 2021-05-11 [facility] 09:02:00 Temperature Oral 2021-05-11 98.4 F [facility] rmann (F) 08:30:00 Heart Rate 2021-05-11 [facility] Sadi n 06:50:00 Heart Rate 2021-05-11 [facility] Sadi n 06:18:00 Heart Rate 2021-05-11 [facility] Sadi n 00:55:00 Temperature Oral 2021-05-11 98.2 F [facility] rmann (F) 00:55:00 BP Systolic 2018-10-02 155 mm[Hg] Location: [place]; [facility] 15:26:00 Position: Sitting BP Diastolic 2018-10-02 88 mm[Hg] Location: [place]; [facility] 15:26:00 Position: Sitting Height 2018-10-02 75 [in_us] [facility] 15:26:00 Weight 2018-10-02 302 [lb_av] [facility] 15:26:00 Body Mass Index 2018-10-02 37.75 kg/m2 [facility] Calculated 15:26:00 Temperature 2018-10-02 98 [degF] Method: Oral [facility] 15:26:00 Heart Rate 2018-10-02 63 /min Location: [facility] 15:26:00 Apical; BP Systolic 2018-09-25 154 [...] [facility] 14:09:00 Weight 2018-06-03 317 [lb_av] [facility] 14:09:00 Body Mass Index 2018-06-03 39.62 kg/m2 [facility] Calculated 14:09:00 Temperature 2018-06-03 97.9 [degF] Method: Oral [facility] 14:09:00 Heart Rate 2018-06-03 74 /min [facility] 14:09:00 Respitory Rate 2018-05-16 [facility] [...] 11:50:00 Temperature Oral 2018-05-16 98.8 F [facility] (F) 10:56:00 Weight 2018-05-16 [facility] 10:[facility]:00 Procedures Procedure Date / Time Performing Clinician Source Performed COMP. METABOLIC PANEL 2023-03-26 22:04:00 Magnolia Montes De Oca [facility] ([id number]) Medical Branch SEDIMENTATION RATE 2023-03-26 22:04:00 Magnolia Montes De Oca [facility] CBC WITH DIFF 2023-03-26 22:04:00 Magnolia Montes De Oca [facility] ASSIGNMENT OF BENEFITS 2023-03-26 21:41:01 Doctor Unassigned, [facility] CONSENT/REFUSAL FOR 2023-03-26 20:58:29 Doctor Unassigned, [facility] DIAGNOSIS AND TREATMENT [facility] CBC WITH PLATELET AND 2023-01-07 09:31[facility]00 [facility] DIFFERENTIAL COMPREHENSIVE METABOLIC 2023-01-07 09:31:00 [facility] PANEL ESTIMATED GFR 2023-01-07 09:31:00 [facility] BLOOD CULTURE, AEROBIC & 2023-01-07 05:36:00 [facility] ANAEROBIC BLOOD CULTURE, AEROBIC & 2023-01-07 05:34:00 [facility] ANAEROBIC CT HEAD WO CONTRAST 2023-01-07 03:33:37 Karen Mendoza [facility] URINE CULTURE 2023-01-07 01:58:00 Karen Mendoza [facility] URINALYSIS SCREEN AND 2023-01-07 01:58:00 Karen Mendoza [facility] MICROSCOPY, WITH REFLEX TO CULTURE ABO AND RH CONFIRMATION BY 2023-01-07 00:55:00 Karen Mendoza [facility] PROTOCOL CTA ABD/PEL FOR BLEEDING 2023-01-07 00:48:48 Karen Mendoza [facility] CBC WITH PLATELET AND 2023-01-06 23:02:00 Karen Mendoza [facility] DIFFERENTIAL PROTHROMBIN TIME WITH INR 2023-01-06 23:02:00 Karen Mendoza [facility] PARTIAL THROMBOPLASTIN 2023-01-06 23:02:00 Karen Mendoza [facility] TIME (PTT) COMPREHENSIVE METABOLIC 2023-01-06 23:02:[address] [facility] PANEL AMYLASE LEVEL 2023-01-06 23:02:00 Karen Mendoza [facility] LIPASE LEVEL 2023-01-06 23:[facility] TYPE AND SCREEN 2023-01-06 23:02[facility]00 [facility] ESTIMATED GFR 2023-01-06 23:02:00 [facility] Injection, epidural, of 2022-05-18 17:43:21 David Cedeño blood or clot patch REFERRAL- REQUEST/RESPONSE 2021-03-30 05:01:00 Doctor Unassigned , [facility] Myringotomy 2020-10-10 00:00:00 [facility] Her jones [U] XRAY KNEE 4 OR MORE 2018-07-24 00:00:00 [facility] hysicisav[facility] VWS RIGHT [id number] Emg/Ncv 2018-06-20 00:00:00 [facility] Sleep Lab - Sleep 2018-06-03 00:00:00 [facility] Study Split Night Ulnar nerve decompression 2017-08-12 00:00:00 De morial [facility] Ulnar nerve decompression 2015-08-12 00:00:00 De morial [place] [facility] Extraction of wisdom tooth [facility]ital [facility] repair History of [facility]rist [facility] Plan of Care Planned Activity Planned Date Details Comments Source Future Scheduled 2023-11-[address] [facility] Test 00:00:00 [facility] (12+) [code = Tobacco Cessation Counseling and Screening (12+)] Future Scheduled 2023-11-[address] [facility] Test 00:00:00 [facility]ing [facility] Screening [facility] (12+) [code = Tobacco Cessation Counseling and Screening (12+)] Future Scheduled 2023-11-[address] [facility] Test 00:00:00 Counseling and Screening [facility] Center (12+) [code = Tobacco Cessation Counseling and Screening (12+)] Future Scheduled 2023-11-[address] [facility] Test 00:00:00 Counseling and Screening [facility] (12+) [code = Tobacco Cessation Counseling [...] Screening (12+)] Future Scheduled 2023-05-25 Pneumococcal Vaccine: [facility] Test 00:12:04 Pediatrics (0 to 5 Years) and At-Risk Patients (6 to 64 Years) (1 - PCV) [code = Pneumococcal Vaccine: Pediatrics (0 to 5 Years) and At-Risk Patients (6 to 64 Years) (1 - PCV)] Future Scheduled 2023-05-25 Hepatitis C screening [facility] Test 00:12:04 (procedure) [code = 200037147] Future Scheduled 2023-05-25 COVID-19 VACCINE (3 - [facility] Test 00:12:04 ) [code = COVID-19 VACCINE (3 - season)] Future Scheduled 2023-05-25 INFLUENZA VACCINE (#1) [facility] Test 00:12:04 [code = INFLUENZA VACCINE (#1)] Future Scheduled 2023-05-25 RSV VACCINES > 60 YR (1 [facility] Test 00:12:04 - 1-dose 60+ series) [code = RSV VACCINES > 60 YR (1 - 1-dose 60+ series)] Future Scheduled 2023-05-25 Pneumococcal Vaccine: [facility] Test 00:12:04 Pediatrics (0 to 5 Years) and At-Risk Patients (6 to 64 Years) (1 - PCV) [code = Pneumococcal Vaccine: Pediatrics (0 to 5 Years) and At-Risk Patients (6 to 64 Years) (1 - PCV)] Future Scheduled 2023-05-25 Hepatitis C screening [facility] Test 00:12:04 (procedure) [code = [id number]] Future Scheduled 2023-05-25 COVID-19 VACCINE (3 - [facility] Test 00:12:04 season) [code = COVID-19 VACCINE ( - season)] Future Scheduled 2023-05-25 INFLUENZA VACCINE (#1) [facility] Test 00:12:04 [code = INFLUENZA VACCINE (#1)] Future Scheduled 2023-05-25 RSV VACCINES > 60 YR (1 [facility] Test 00:12:04 - 1-dose 60+ series) [...] Vaccine (#1)] Future Scheduled 2023-04-07 Pneumococcal Vaccine: [facility] Test 01:15:51 Pediatrics (0 to 5 Years) and At-Risk Patients (6 to 64 Years) (1 - PCV) [code = Pneumococcal Vaccine: Pediatrics (0 to 5 Years) and At-Risk Patients (6 to 64 Years) (1 - PCV)] Future Scheduled 2023-04-07 Hepatitis C screening [facility] Test 01:15:51 (procedure) [code = [id number]] Future Scheduled 2023-04-07 COVID-19 VACCINE (3 - [facility] Test 01:15:51 Pfizer series) [code = COVID-19 VACCINE (3 - Pfizer series)] Future Scheduled 2023-04-07 [facility] (#[facility] 01:15:51 [code = INFLUENZA VACCINE (#1)] Future Scheduled 2023-04-07 Pneumococcal Vaccine: [facility] Test 01:15:51 Pediatrics (0 to 5 Years) and At-Risk Patients (6 to 64 Years) (1 - PCV) [code = Pneumococcal Vaccine: Pediatrics (0 to 5 Years) and At-Risk Patients (6 to 64 Years) (1 - PCV)] Future Scheduled 2023-04-07 Hepatitis C screening [facility] Test 01:15:51 (procedure) [code = [id number]] Future Scheduled 2023-04-07 COVID-19 VACCINE (3 - [facility] Test 01:15:51 Pfizer series) [code = COVID-19 VACCINE (3 - Pfizer series)] Future Scheduled 2023-04-07 INFLUENZA VACCINE (#1) [facility] Test 01:15:51 [code = INFLUENZA VACCINE (#1)] Future Scheduled 2023-04-07 Pneumococcal Vaccine: [facility] Test 01:15:51 Pediatrics (0 to 5 Years) and At-Risk Patients (6 to 64 Years) (1 - PCV) [code = Pneumococcal Vaccine: Pediatrics (0 to 5 Years) and At-Risk Patients (6 to 64 Years) (1 - PCV)] Future Scheduled 2023-04-07 Hepatitis C screening [facility] Test 01:15:51 (procedure) [code = [id number]] Future Scheduled 2023-04-07 COVID-19 VACCINE (3 - [facility] Test 01:15:51 Pfizer series) [code = COVID-19 VACCINE (3 - Pfizer series)] Future Scheduled 2023-04-07 INFLUENZA VACCINE (#1) [facility] Test 01:15:51 [code = INFLUENZA VACCINE (#1)] Future Scheduled 2023-03-16 Pneumococcal Vaccine: [facility] Test 12:35:05 Pediatrics (0 to 5 Years) and At-Risk Patients (6 to 64 Years) (1 - PCV) [code = Pneumococcal Vaccine: Pediatrics (0 to 5 Years) and At-Risk Patients (6 to 64 Years) (1 - PCV)] Future Scheduled 2023-03-16 Hepatitis C screening [facility] Test 12:35:05 (procedure) [code = 396483638] Future Scheduled 2023-03-16 COVID-19 VACCINE (3 - [facility] Test 12:35:05 Pfizer series) [code = COVID-19 VACCINE (3 - Pfizer series)] Future Scheduled 2023-03-16 INFLUENZA VACCINE [code [facility] Test 12:35:05 = INFLUENZA VACCINE] Future Scheduled 2023-03-08 Pneumococcal Vaccine: [facility] Test 14:34:41 Pediatrics (0 to 5 Years) and At-Risk Patients (6 to 64 Years) (1 - PCV) [code = Pneumococcal Vaccine: Pediatrics (0 to 5 Years) and At-Risk Patients (6 to 64 Years) (1 - PCV)] Future Scheduled 2023-03-08 Hepatitis C screening [facility] Test 14:34:41 (procedure) [code = 730725606] Future Scheduled 2023-03-08 COVID-19 VACCINE (3 - [facility] Test 14:34:41 Pfizer series) [code = COVID-19 VACCINE (3 - Pfizer series)] Future Scheduled 2023-03-08 INFLUENZA VACCINE [code [facility] Test 14:34:41 = INFLUENZA VACCINE] Future Scheduled 2023-03-04 Pneumococcal Vaccine: [facility] Test 12:22:41 Pediatrics (0 to 5 Years) and At-Risk Patients (6 to 64 Years) (1 - PCV) [code = Pneumococcal Vaccine: Pediatrics (0 to 5 Years) and At-Risk Patients (6 to 64 Years) (1 - PCV)] Future Scheduled 2023-03-04 Hepatitis C screening [facility] Test 12:22:41 (procedure) [code = [id number]] Future Scheduled 2023-03-04 COVID-19 VACCINE (3 - [facility] Test 12:22:41 Pfizer series) [code = COVID-19 VACCINE (3 - Pfizer series)] Future Scheduled 2023-03-04 INFLUENZA VACCINE [code [facility] Test 12:22:41 = INFLUENZA VACCINE] Future Scheduled 2023-02-11 Pneumococcal Vaccine: [facility] Test 11:22:44 Pediatrics (0 to 5 Years) and At-Risk Patients (6 to 64 Years) (1 - PCV) [code = Pneumococcal Vaccine: Pediatrics (0 to 5 Years) and At-Risk Patients (6 to 64 Years) (1 - PCV)] Future Scheduled 2023-02-11 Hepatitis C screening [facility] Test 11:22:44 (procedure) [code = 151661544] Future Scheduled 2023-02-11 COVID-19 VACCINE (3 - [facility] Test 11:22:44 Pfizer series) [code = COVID-19 VACCINE (3 - Pfizer series)] Future Scheduled 2023-02-11 INFLUENZA VACCINE [code [facility] Test 11:22:44 = INFLUENZA VACCINE] Future Scheduled 2023-01-26 Pneumococcal Vaccine: [facility] Test 16:56:13 Pediatrics (0 to 5 Years) and At-Risk Patients (6 to 64 Years) (1 - PCV) [code = Pneumococcal Vaccine: Pediatrics (0 to 5 Years) and At-Risk Patients (6 to 64 Years) (1 - PCV)] Future Scheduled 2023-01-26 Hepatitis C screening [facility] Test 16:56:13 (procedure) [code = [id number]] Future Scheduled 2023-01-26 COVID-19 VACCINE (3 - [facility] Test 16:56:13 Pfizer series) [code = COVID-19 VACCINE (3 - Pfizer series)] Future Scheduled 2023-01-26 INFLUENZA VACCINE [code [facility] Test 16:56:13 = INFLUENZA VACCINE] Future Scheduled 2022-12-12 COVID-19 VACCINE (#1) [facility] Test 13:32:14 [code = COVID-19 VACCINE (#1)] Future Scheduled 2022-12-12 INFLUENZA VACCINE [code [facility] Test 13:32:14 = INFLUENZA VACCINE] Future Scheduled 2022-12-12 COVID-19 VACCINE (#1) [facility] Test 13:32:14 [code = COVID-19 VACCINE (#1)] Future Scheduled 2022-12-12 INFLUENZA VACCINE [code [facility] Test 13:32:14 = INFLUENZA VACCINE] Future Scheduled 2022-09-18 COVID-19 VACCINE (#1) [facility] Test 11:55:25 [code = COVID-19 VACCINE (#1)] Future Scheduled 2022-09-18 INFLUENZA VACCINE [code [facility] Test 11:55:25 = INFLUENZA VACCINE] Future Scheduled 2022-09-18 COVID-19 VACCINE (#1) [facility] Test 11:55:25 [code = COVID-19 VACCINE (#1)] Future Scheduled 2022-09-18 INFLUENZA VACCINE [code [facility] Test 11:55:25 = INFLUENZA VACCINE] Future Scheduled 2022-09-07 COVID-19 VACCINE (#1) [facility] Test 19:13:43 [code = COVID-19 VACCINE (#1)] Future Scheduled 2022-09-07 INFLUENZA VACCINE [code [facility] Test 19:13:43 = INFLUENZA VACCINE] Future Scheduled 2022-08-[address] [facility] Test 00:00:00 (12+) [code = DEPRESSION Med [...] (12+)] Future Scheduled 2022-07-28 COVID-19 VACCINE (#1) [facility] Test 16:56:35 [code = COVID-19 VACCINE (#1)] Future Scheduled 2022-07-28 INFLUENZA VACCINE [code [facility] Test 16:56:35 = INFLUENZA VACCINE] Future Scheduled 2022-07-28 COVID-19 VACCINE (#1) [facility] Test 16:56:35 [code = COVID-19 VACCINE (#1)] Future Scheduled 2022-07-28 INFLUENZA VACCINE [code [facility] Test 16:56:35 = INFLUENZA VACCINE] Future Scheduled 2022-04-13 HEPATITIS B VACCINES (1 [facility] Test 21:38:54 of 3 - 3-dose series) [code = HEPATITIS B VACCINES (1 of 3 - 3-dose series)] Future Scheduled 2022-04-13 COVID-19 VACCINE (#1) [facility] Test 21:38:54 [code = COVID-19 VACCINE (#1)] Future Scheduled 2022-04-13 INFLUENZA VACCINE [code [facility] Test 21:38:54 = INFLUENZA VACCINE] Future Scheduled 2022-04-13 HEPATITIS B VACCINES (1 [facility] Test 21:38:54 of 3 - 3-dose series) [code = HEPATITIS B VACCINES (1 of 3 - 3-dose series)] Future Scheduled 2022-04-13 COVID-19 VACCINE (#1) [facility] Test 21:38:54 [code = COVID-19 VACCINE (#1)] Future Scheduled 2022-04-13 INFLUENZA VACCINE [code [facility] Test 21:38:54 = INFLUENZA VACCINE] Future Scheduled 2022-04-13 HEPATITIS B VACCINES (1 [facility] Test 21:38:54 of 3 - 3-dose series) [code = HEPATITIS B VACCINES (1 of 3 - 3-dose series)] Future Scheduled 2022-04-13 COVID-19 VACCINE (#1) [facility] Test 21:38:54 [code = COVID-19 VACCINE (#1)] Future Scheduled 2022-04-13 INFLUENZA VACCINE [code [facility] Test 21:38:54 = INFLUENZA VACCINE] Future Scheduled 2022-04-13 HEPATITIS B VACCINES (1 [facility] Test 21:38:54 of 3 - 3-dose series) [code = HEPATITIS B VACCINES (1 of 3 - 3-dose series)] Future Scheduled 2022-04-13 COVID-19 VACCINE (#1) [facility] Test 21:38:54 [code = COVID-19 VACCINE (#1)] Future Scheduled 2022-04-13 INFLUENZA VACCINE [code [facility] Test 21:38:54 = INFLUENZA VACCINE] Future Scheduled 2022-04-13 HEPATITIS B VACCINES (1 [facility] Test 21:38:54 of 3 - 3-dose series) [code = HEPATITIS B VACCINES (1 of 3 - 3-dose series)] Future Scheduled 2022-04-13 COVID-19 VACCINE (#1) [facility] Test 21:38:54 [code = COVID-19 VACCINE (#1)] Future Scheduled 2022-04-13 INFLUENZA VACCINE [code [facility] Test 21:38:54 = INFLUENZA VACCINE] Future Scheduled 2022-04-13 HEPATITIS B VACCINES (1 [facility] Test 21:38:54 of 3 - 3-dose series) [code = HEPATITIS B VACCINES (1 of 3 - 3-dose series)] Future Scheduled 2022-04-13 COVID-19 VACCINE (#1) [facility] Test 21:38:54 [code = COVID-19 VACCINE (#1)] Future Scheduled 2022-04-13 INFLUENZA VACCINE [code [facility] Test 21:38:54 = INFLUENZA VACCINE] Future [...] [facility] Test 00:00:00 [code = 82691407] Medical Ce nter Future Scheduled 2015 Lipid panel (procedure) [facility] Test 00:00:00 [code = 85527963] Medical Ce nter Future Scheduled 2015 Lipid panel (procedure) [facility] Test 00:00:00 [code = 39238731] Medical Ce nter Future Scheduled 2015 Lipid panel (procedure) [facility] Test 00:00:00 [code = 21657428] Medical Ce nter Future Scheduled 2015 Lipid panel (procedure) [facility] Test 00:00:00 [code = 36027088] Medical Ce nter Future Scheduled 2015 Lipid panel (procedure) [facility] Test 00:00:00 [code = 98609210] Medical Ce nter Future Scheduled 2015 Lipid panel (procedure) [facility] Test 00:00:00 [code = 23735145] Medical Ce nter Future Scheduled 2015 Lipid panel (procedure) [facility] Test 00:00:00 [code = 18307925] Medical Ce nter Future Scheduled 2015 Lipid panel (procedure) [facility] Test 00:00:00 [code = 49226477] Medical Ce nter Future Scheduled 2015 Lipid panel (procedure) [facility] Test 00:00:00 [code = 59475578] Medical Ce nter Future Scheduled 2015 Lipid panel (procedure) [facility] Test 00:00:00 [code = 99469649] Medical Ce nter Future Scheduled 2015 Lipid panel (procedure) [facility] Test 00:00:00 [code = 50403546] Medical Ce nter Future Scheduled 1999 DTAP/TDAP/TD [...] [facility]procedure[facility] [code = 143837053] Future Scheduled [address] [facility] 00:[facility]00 virus screening [facility] (procedure) [code = 856023170] Future Scheduled [address] Human immunodeficiency [facility] Test 00:00:00 virus screening [facility] (procedure) [code = 369798765] Future Scheduled [address] Human immunodeficiency [facility] Test 00:00:00 [facility] screening [facility] (procedure) [code = 990822286] Future Scheduled [address] [facility] [address] [facility] Test 00:00:00 [facility] screening [facility] (procedure) [code = 910967776] Future Scheduled [address] Human [facility] Test 00:00:00 [facility] screening [facility]procedure) [code = 865139044] Future Scheduled [address] [facility] Test 00:00:00 [facility] screening [facility] (procedure) [code = 158618000] Future Scheduled [address] Human [facility] Test 00:00:00 virus screening [facility] (procedure) [code = 642489812] Future Scheduled COVID-19 VACCINE (1) [facility] Test [code = COVID-19 VACCINE (1)] Future Scheduled Hepatitis C screening [facility] Test (procedure) [code = 064589267] Future Scheduled INFLUENZA VACCINE [code [facility] Test = INFLUENZA VACCINE] Encounters Start End Encounter Admission Attending Care Care Encounter Source Date/Time Date/Time Type Type Clinicians Facility Department ID 2023-03-27 Outpatient [facility] [id number] Common 08:24:00 [facility] [address] [facility] 2023-02-19 Outpatient [facility] [id number] [place] 08:16:07 [id number] [facility] 2023-02-18 Outpatient [facility] [id number] [place] 07:32:15 [id number] [facility] 2023-02-04 Outpatient [facility] [id number] [place] 16:00:55 [id number] [facility] 2023-01-04 Outpatient [facility] [id number] [place] 10:29:46 [id number] [facility] 2022-12-21 Outpatient VazquezZOLTAN frausto [facility] [id number] Common 09:37:00 [facility] [address] [facility] 2022-09-27 Outpatient [facility] [id number] [place] 15:49:39 [id number] [facility] 2022-09-25 [facility] [id number] Common 10:35:01 [facility] [address] [facility] 2022-09-20 Outpatient [facility] [id number] [place] 09:01:19 [id number] [facility] 2022-09-18 Outpatient [facility] [id number] [place] 13:05:14 [id number] [facility] 2022-09-04 Outpatient [facility] [id number] [place] 09:48:26 [id number] [facility] 2022-09-03 Outpatient [facility] [id number] [place] 10:22:47 [id number] [facility] 2022-08-15 Outpatient [facility] [id number] [place] 08:54:00 [id number] [facility] 2022-07-30 Outpatient [facility] [id number] [place] 09:03:26 [id number] [facility] 2022-07-27 Outpatient [facility] [id number] [place] 09:39:00 [id number] [facility] 2022-06-22 Outpatient Vazquez, STLMLC STLMLC [id number] Common 11:03:01 [facility] 2022-06-20 Outpatient [facility] [id number] [place] 15:53:00 [id number] [facility] 2022-06-20 Outpatient Vazquez, STLMLC STLMLC [id number] Common 09:33:01 [facility] 2022-06-19 Outpatient [facility] [id number] [place] 15:00:31 [id number] [facility] 2022-06-12 Outpatient [facility] [id number] [place] 09:35:34 [id number] [facility] 2022-05-25 Outpatient [facility] [id number] [place] 13:39:31 [id number] [facility] 2021-10-25 Outpatient MIGUEL ANGEL, [facility] ANAY 7506 [facility] 11:23:00 PELSOR 2021-09-28 Outpatient DAY, NOAH [facility] [id number] [place] 16:10:44 [facility] 2021-09-06 Outpatient Vazquez, STLMLC STLMLC [id number] Common 12:12:10 [facility] [address] [facility] 2021-09-06 Outpatient Vazquez, STLMLC STLMLC [id number] Common 12:10:54 John [address] [facility] 2021-09-06 Outpatient Vazquez, STLMLC STLMLC [id number] Common 12:09:52 John [address] [facility] 2021-09-06 Outpatient Vazquez, STLMLC STLMLC [id number] Common 11:54:05 [facility] [address] [facility] 2021-09-06 Outpatient Vazquez, STLMLC [facility] [id number] Common 11:06:57 [facility] [address] [facility] 2021-09-06 Outpatient Vazquez, STLMLC [facility] [id number] Common 11:06:47 [facility] [address] [facility] 2021-04-18 Outpatient PATKI, [facility] [id number] [place] 14:45:53 [facility] 2023-10-22 2023-10-22 Outpatient YUREINIEREL, [facility] [id number] [place] 15:00:00 15:00:00 [facility] 2023-10-22 2023-10-22 Outpatient SLEDGE, [facility] [id number] [place] 14:30:00 14:30:00 DAVID [facility] 2023-08-13 2023-08-13 Outpatient YINKAJOHAN [facility] [id number] [place] 16:00:00 16:00:00 [facility] 2023-05-29 2023-05-29 Outpatient DAY, NOAH [facility] [id number] [place] 15:45:00 15:45:00 [facility] 2023-04-23 2023-04-23 Office Alyse UTP 6400 1.2.840.114 [id number] [place] 15:15:00 15:48:[address] 350.1.13.58 Health 9.2.7.2.686 [id number] 5 2023-04-23 2023-04-23 Office Johan Honeycutt UTP 6410 1.2.840.114 [id number] [place] 14:00:00 15:16:[address] 350.1.13.58 Health 9.2.7.2.686 [id number] 8 2023-04-08 2023-04-08 Outpatient SFA ALBIN [id number] [place] 14:50:30 14:50:30 0828 F Serge 2023-03-26 2023-03-26 Emergency X JACOBO, [facility] ERT [id number] Univers 16:24:00 20:05:00 MAGNOLIA busch [facility] 2023-03-26 2023-03-26 Emergency [facility], [facility] 1.2.840.114 [id number] [facility] 16:24:00 20:05:00 Magnolia YANG 350.1.13.10 i ty of [place] 4.2.7.2.686 [facility] [id number] [facility] 084 [address] 2023-03-13 2023-03-13 Office Alyse [facility] 6400 1.2.840.114 [id number] [place] 13:00:00 13:52:59 Visit [facility] 350.1.13.58 Health 9.2.7.2.686 [id number] 5 2023-03-07 2023-03-07 Outpatient LISA, [facility] [id number] [place] 14:15:00 14:15:00 [facility] 2023-02-14 2023-02-19 Inpatient [facility] [id number] [facility] 09:24:00 17:51:00 [facility] 2023-02-14 2023-02-14 Outpatient [facility] [id number] [place] 12:00:00 12:00:00 [facility] 2023-01-10 2023-01-10 Outpatient CORCORAN [facility] [id number] [place] 13:00:00 13:00:00 Karthik WILHELM 2023-01-06 2023-01-07 Emergency Karen Mendoza K. 1.2.840.1 [id number] Methodi 17:24:00 18:25:00 Julian Sexton 13892.1.1 567 [facility] 3.430.2.7 Hospita .3.892044 l .8 2023-01-06 2023-01-07 Emergency Karen Mendoza K. 1.2.840.1 [id number] Methodi 17:24:00 18:25:00 Julian Sexton 85413.1.1 567 [facility] 3.430.2.7 Hospita .3.177638 l .8 2023-01-06 2023-01-06 Travel 1.2.840.1 1.2.142.781 [id number] Methodi 00:00:00 00:00:[address] 3.430.2.7 0.2.7.3.698 Ho spita .3.371222 084.8 l .8 2023-01-06 2023-01-06 Travel 1.2.840.1 1.2.971.937 [id number] Methodi 00:00:00 00:00:[address] 3.430.2.7 0.2.7.3.698 Ho spita .3.910669 084.8 l .8 2022-11-14 2022-11-[address] [facility] [id number] 14:30:00 15:33:44 Visit [facility] 2022-11-14 2022-11-[address] [facility] [id number] 14:30:00 15:33:44 Visit [facility] 2022-09-28 2022-09-28 Office Alyse [facility] 6400 1.2.840.114 [id number] [place] 15:00:00 16:43:35 Visit Manasa KING 350.1.13.58 Health 9.2.7.2.686 [id number] 5 2022-09-27 2022-09-27 (TEL) [facility] [id number] Co mmon 00:00:00 00:00:00 [facility] 2022-09-27 2022-09-27 PREV VISIT STLMLC STLC [id number] Common 00:00:00 00:00:00 EST AGE [facility] 40-64 - [facility] 2022-09-26 2022-09-26 Outpatient ALYSE [facility] [id number] [place] 13:15:00 13:15:00 [facility] 2022-09-20 2022-09-21 Outpt Diag IE [facility] [id number] Memoria 19:41:00 05:59:00 Services Outpatient 03 cooper Cedeño 2022-09-20 2022-09-20 Office EUNICE CULLEN 6400 1.2.840.114 [id number] [place] 08:45:00 08:45:[address] 350.1.13.58 Health 9.2.7.2.686 [id number] 5 2022-08-16 2022-08-16 Outpatient TUCKER, [facility] [id number] [place] 14:30:00 14:30:00 [facility] 2022-08-01 2022-08-01 Outpatient CAITLIN, [facility] [id number] [place] 11:00:00 11:00:00 [facility] 2022-07-27 2022-07-27 Office EUNICE Cullen 6400 1.2.840.114 [id number] [place] 08:30:00 09:48:[address] 350.1.13.58 Health 9.2.7.2.686 [id number] 5 2022-07-25 2022-07-25 (TEL) STLMLC STLMLC [id number] Co mmon 00:00:00 00:00:00 [facility] 2022-06-22 2022-06-22 (TEL) STLMLC STLMLC [id number] Co mmon 00:00:00 00:00:00 [facility] 2022-06-22 2022-06-22 OFFICE STLMLC STLMLC [id number] Co mmon 00:00:00 00:00:00 VISIT [facility] LEVEL 4 [facility] 2022-06-20 2022-06-20 Outpatient DAY, NOAH [facility] [id number] [place] 14:00:00 14:00:00 Health 2022-06-13 2022-06-13 Outpatient DAY, NOAH [facility] [id number] [place] 13:15:00 13:15:00 Health 2022-06-06 2022-06-06 (TEL) STLMLC STLMLC [id number] Co mmon 00:00:00 00:00:00 [facility] 2022-06-06 2022-06-06 (TEL) STLMLC STLMLC [id number] Co mmon 00:00:00 00:00:00 [facility] 2022-05-16 2022-05-19 Observatio nullFlavo [facility] [id number] Memoria 21:39:42 16:40:00 n [facility] 07 l [facility] 2022-05-17 2022-05-19 Outpatient E DAY, NOAH [facility] [id number] [facility] 10:13:00 11:40:00 2022-05-16 2022-05-16 Office DAY, NOAH [facility] 6400 1.2.840.114 [id number] [place] 15:45:00 15:45:[address] 350.1.13.58 Health 9.2.7.2.686 [id number] 0 2022-05-12 2022-05-13 Emergency [facility] [id number] Memoria 09:35:00 02:21:00 [facility] 74 l [facility] 2022-05-12 2022-05-12 Emergency E ROBERTS, [facility] 2274 [facility] 03:16:00 21:21:00 SONIA 2022-03-21 2022-03-21 Outpatient DAY, NOAH [facility] [id number] [place] 15:00:00 15:00:00 Health 2022-03-14 2022-03-14 Telephone Day, Noah [facility]TP 6400 1.2.840.114 [id number] [place] 00:00:00 00:00:[address] 350.1.13.58 Health 9.2.7.2.686 [id number] 0 2022-03-14 2022-03-14 Telephone Day, Noah [facility]TP 6400 1.2.840.114 [id number] [place] 00:00:00 00:00:[address] 350.1.13.58 Health 9.2.7.2.686 [id number] 0 2022-03-14 2022-03-14 Telephone Patki, UTP 6400 1.2.840.114 [id number] [place] 00:00:00 00:00:[address] 350.1.13.58 Health 9.2.7.2.686 [id number] 3 2022-03-13 2022-03-13 Telephone Day, Noah [facility]TP 6400 1.2.840.114 [id number] [place] 00:00:00 00:00:[address] 350.1.13.58 Health 9.2.7.2.686 [id number] 0 2022-01-01 2022-01-01 Telephone Day, Noah [facility]TP 6400 1.2.840.114 [id number] [place] 00:00:00 00:00:[address] 350.1.13.58 Health 9.2.7.2.686 [id number] 0 2021-12-28 2021-12-28 Telephone Day, Noah [facility]TP 6400 1.2.840.114 [id number] [place] 00:00:00 00:00:[address] 350.1.13.58 Health 9.2.7.2.686 [id number] 0 2021-12-06 2021-12-06 Telephone Day, Noah UTP 6400 1.2.840.114 [id number] [place] 00:00:00 00:00:[address] 350.1.13.58 Health 9.2.7.2.686 [id number] 0 2021-11-27 2021-11-27 Telephone Day, Noah [facility]TP 6400 1.2.840.114 [id number] [place] 00:00:00 00:00:[address] 350.1.13.58 Health 9.2.7.2.686 [id number] 0 2021-11-01 2021-11-01 Telephone Day, Noah [facility]TP 6400 1.2.840.114 [id number] [place] 00:00:00 00:00:[address] 350.1.13.58 Health 9.2.7.2.686 [id number] 0 2021-10-30 2021-10-30 Telephone Rae Naranjo UTP 1.2.840 .114 [id number] [place] 00:00:00 00:00:00 Rae Naranjo 350.1.13.58 Health MEDICAL 9.2.7.2.686 BUILDING [id number] 1 2021-10-27 2021-10-27 Telephone Day, Noah UTP 6410 1.2.840.114 [id number] [place] 00:00:00 00:00:[address] 350.1.13.58 Health 9.2.7.2.686 [id number] 8 2021-10-25 2021-10-26 Outpt Diag nullFlavo [facility] [id number] Memoria 18:11:00 04:59:00 Services r Outpatient 01 l Imaging [facility] 2021-10-24 2021-10-24 Telephone Layne Sánchez UTP 6400 1.2.840.1 14 [id number] [place] 00:00:00 00:00:[address] ST [id number] Health [id number] [id number] 2021-10-24 2021-10-24 Telephone Day, Noah UTP 6400 1.2.840.114 [id number] [place] 00:00:00 00:00:[address] [id number] Health [id number] 2021-10-20 2021-10-20 Office Miguel Angel, EUNICE 1.2.840.114 [id number] [place] 13:30:00 14:18:52 Visit Geronimo MENCHACA 350.1.13.58 H [facility] MEDICAL 9.2.7.2.686 [facility] [id number] 2021-10-18 2021-10-19 Outpt Diag nullFlavo [facility] [id number] Memoria 17:43:00 05:59:00 Services r Outpatient 00 l Imaging Davidson Cedeño 2021-10-18 2021-10-18 Office Day, Noah UTP 6400 1.2.840.114 1 [id number] [place] 10:00:00 10:15:[address] [place] [id number] Health 9.2.7.2.686 [id number] 2021-10-18 2021-10-18 Telephone Day, Noah UTP 6400 1.2.840.114 [id number] [place] 00:00:00 00:00:[address] [id number] Health 9.2.7.2.686 [id number] 2021-10-18 2021-10-18 Telephone Day, Noah UTP 6400 1.2.840.114 [id number] [place] 00:00:00 00:00:[address] 350.1.13.58 Health 9.2.7.2.686 [id number] 0 2021-10-17 2021-10-17 Telephone Day, Noah UTP 6400 1.2.840.114 [id number] [place] 00:00:00 00:00:[address] 350.1.13.58 Health 9.2.7.2.686 [id number] 0 2021-10-13 2021-10-13 Telephone Day, Noah UTP 6400 1.2.840.114 [id number] PA 00:00:00 00:00:[address] 350.1.13.58 Health 9.2.7.2.686 [id number] 0 2021-10-08 2021-10-10 Inpatient [facility] [id number] Memoria 23:43:00 15:48:00 [facility] 58 [facility] 2021-10-08 2021-10-10 Inpatient E DAY, [facility] 2057 [facility] 19:58:00 09:48:00 2021-10-03 2021-10-05 Inpatient [facility] [id number] Memoria 11:15:00 16:21:00 [facility] 05 [facility] 2021-10-03 2021-10-05 Inpatient DAY, NO[facility] 7505 [facility] 05:15:00 10:21:00 2021-10-04 2021-10-04 Telephone Day, Noah DAWSON 6400 1.2.840.114 [id number] [place] 00:00:00 00:00:[address] 350.1.13.58 Health 9.2.7.2.686 [id number] 0 2021-09-28 2021-09-28 Telephone Day, Noah UTP 6400 1.2.840.114 [id number] UT 00:00:00 00:00:[address] 350.1.13.58 Health 9.2.7.2.686 [id number] 0 2021-09-28 2021-09-28 Telephone Dorothea Delgadillo UTP 6400 1.2.84 0.114 [id number] [place] 00:00:00 00:00:[address] 350.1.13.58 Health 9.2.7.2.686 [id number] 3 2021-09-22 2021-09-22 Telephone Day, Noah UTP 6400 1.2.840.114 [id number] PA 00:00:00 00:00:[address] 350.1.13.58 Health 9.2.7.2.686 [id number] 0 2021-09-20 2021-09-20 Telephone Day, Noah UTP 6400 1.2.840.114 [id number] PA 00:00:00 00:00:[address] 350.1.13.58 Health 9.2.7.2.686 [id number] 7 2021-09-18 2021-09-18 Telephone Amelia Cameron UTP 6400 1.2.840.11 4 [id number] PA 00:00:00 00:00:[address] 350.1.13.58 Health 9.2.7.2.686 [id number] 5 2021-09-07 2021-09-07 Office Evelynekenji UTP 6400 1.2.840.114 [id number] [place] 13:30:00 14:35:[address] 350.1.13.58 Health 9.2.7.2.686 [id number] 3 2021-09-07 2021-09-07 Telephone Patki, UTP 6400 1.2.840.114 [id number] [place] 00:00:00 00:00:[address] 350.1.13.58 Health 9.2.7.2.686 [id number] 3 2021-09-05 2021-09-05 Telephone Patki, UTP 6400 1.2.840.114 134 [id number] UT 00:00:00 00:00:[address] 350.1.13.58 Health 9.2.7.2.686 [id number] 3 2021-09-03 2021-09-03 Telephone Patki, UTP 6400 1.2.840.114 133 [id number] [place] 00:00:00 00:00:[address] 350.1.13.58 Health 9.2.7.2.686 [id number] 3 2021-08-02 2021-08-02 Telephone Patki, UTP 6400 1.2.840.114 [id number] [place] 00:00:00 00:00:[address] 350.1.13.58 Health 9.2.7.2.686 [id number] 3 2021-05-18 2021-05-18 Orders Brii Howard UTP 6400 1.2.840.114 [id number] [place] 00:00:00 00:00:[address] 350.1.13.58 Health 9.2.7.2.686 [id number] 3 2021-05-18 2021-05-18 Yolanda Kumar, UTP 6400 1.2.840.114 [id number] UT 00:00:00 00:00:[address] 350.1.13.58 Health 9.2.7.2.686 [id number] 3 2021-05-15 2021-05-15 Telephone Patki, UTP 6400 1.2.840.114 127 [id number] UT 00:00:00 00:00:[address] 350.1.13.58 Health 9.2.7.2.686 [id number] 3 2021-05-11 2021-05-11 [facility] [id number] [facility] 00:42:19 14:08:[address] 2021-05-11 2021-05-11 (TEL) STLMLC STLMLC [id number] Co mmon 00:00:00 00:00:00 [facility] 2021-05-09 2021-05-09 Telephone Patki, UTP 6400 1.2.840.114 [id number] UT 00:00:00 00:00:[address] 350.1.13.58 Health 9.2.7.2.686 [id number] 3 2021-05-08 2021-05-08 Telephone Patki, UTP 6400 1.2.840.114 127 [id number] [place] 00:00:00 00:00:[address] 350.1.13.58 Health 9.2.7.2.686 [id number] 3 2021-05-08 2021-05-08 Telephone Patki, UTP 6400 1.2.840.114 127 [id number] UT 00:00:00 00:00:[address] 350.1.13.58 Health 9.2.7.2.686 [id number] 3 2021-05-08 2021-05-08 Telephone Patki, UTP 6400 1.2.840.114 127 [id number] UT 00:00:00 00:00:[address] 350.1.13.58 Health 9.2.7.2.686 [id number] 3 2021-05-03 2021-05-03 Office Patki, UTP 6400 1.2.840.114 [id number] PA 13:38:06 14:42:[address] 350.1.13.58 Health 9.2.7.2.686 [id number] 3 2021-05-03 2021-05-03 Office Patki, UTP 6400 1.2.840.114 [id number] UT 13:38:06 14:42:46 Visit Junior JOYCE 350.1.13.58 Health 9.2.7.2.686 [id number] 3 2021-04-18 2021-04-18 Office Stacy, EUNICE 6400 1.2.840.114 [id number] UT 13:09:45 14:44:18 Visit Junior JOYCE 350.1.13.58 Health 9.2.7.2.686 [id number] 3 2021-04-18 2021-04-18 Office Stacy, EUNICE 6400 1.2.840.114 [id number] UT 13:09:45 14:44:18 Visit Junior JOYCE 350.1.13.58 Health 9.2.7.2.686 [id number] 3 2021-04-06 2021-04-06 OFFICE STLMLC STLMLC [id number] Co mmon 00:00:00 00:00:00 VISIT EST Spir it PT LEVEL 3 [facility] 2021-04-06 2021-04-06 (TEL) STLMLC STLMLC [id number] Co mmon 00:00:00 00:00:00 [facility] 2021-03-31 2021-03-31 (TEL) STLMLC STLMLC [id number] Co mmon 00:00:00 00:00:00 [facility] 2021-03-30 2021-03-30 Orders Doctor AICHA 1.2.840.114 [id number] 00:00:00 00:00:00 Only Unassigned, ABDULKADIR 350.1.13.10 [facility] 4.2.7.2.686 [id number] 2021-03-30 2021-03-30 Orders Doctor AICHA 1.2.840.114 [id number] Univers 00:00:00 00:00:00 Only Unassigned, ABDULKADIR 350.1.13.10 ity of [facility] 4.2.7.2.686 Norberto as [id number] [address] 2021-03-21 2021-03-21 Ancillary 1, Gal UN[facility]ERS[facility] 1.2.840.114 [id number] 14:21:34 15:15:15 Visit [employer] Y 350.1.13.10 [address] 4.2.7.2.686 [facility] [id number] BLDG. 141 2021-03-21 2021-03-21 [facility] [id number] Univers 13:45:00 13:45:00 FABY [facility] 2021-01-17 2021-01-17 Emergency X BARBARA, [facility] ERT [id number] Univers 19:28:00 19:28:00 LAURENCE [facility] 2020-11-21 2020-11-21 Emergency X [facility] ERT [id number] Univers 15:51:00 15:51:00 [facility] 2020-07-20 2020-07-20 (TEL) STLMLC STLMLC [id number] Co mmon 00:00:00 00:00:00 Spirit [facility] 2020-07-12 2020-07-12 OFFICE STLMLC STLMLC [id number] Co mmon 00:00:00 00:00:00 VISIT EST Spir it PT LEVEL 3 [facility] 2020-05-23 2020-05-23 OFFICE STLMLC STLMLC [id number] Co mmon 00:00:00 00:00:00 VISIT EST Spir it PT LEVEL 3 [facility] 2020-02-24 2020-02-24 [facility] [id number] Common 14:42:00 14:42:00 t [employer] [address] [facility] 2020-02-22 2020-02-22 [facility] 31 [id number] Common 13:51:00 13:51:00 t [facility] [address] [facility] 2019-12-10 2019-12-10 [facility] [id number] Common 15:39:00 15:39:00 t [facility] [address] [facility] 2019-12-08 2019-12-08 [facility] 30 [id number] Common 13:40:00 13:40:00 t [facility] [address] [facility] 2019-12-07 2019-12-07 [facility] 30 [id number] Common 12:05:00 12:05:00 t [facility] [address] [facility] 2019-11-16 2019-11-16 [facility] 29 [id number] Common 11:00:00 11:00:00 t [facility] 2019-10-21 2019-10-21 Emergency X NEREIDA, Blaire [facility] ERT [id number] Univers 11:24:16 14:51:00 ity [facility] 2019-09-29 2019-09-29 [facility] 29 [id number] Common 09:21:00 09:21:00 t Bone Bone [facility] Spiri t and Joint [facility] - [facility] 2019-09-21 2019-09-21 [facility] 29 [id number] Common 14:00:00 14:00:00 t [facility] Bone [facility] Sp[facility] t [facility] 2019-03-13 2019-03-13 EUNICE Diaz [facility] [id number] [place] 09:00:00 09:00:00 t; Lesa RODRIGUEZ savannah Roberto M.D. 2018-10-02 2018-10-02 AppointEUNICE Ibrahim [facility] [place] [id number] [place] 15:00:00 15:00:00 t; Asher JONES i, M.D. ans POURAN, M.D. 2018-09-25 2018-09-25 AppointEUNICE Jeong [facility] [id number] [place] 10:30:00 10:30:00 t; BRANT CEJA NP Health and Valery GUO NP Wellness [facility] 2018-09-22 2018-09-22 AppointEUNICE Ibrahim [facility] [place] [id number] UT 15:30:00 15:30:00 t; Asher JONES i, M.D. ans POURAN, M.D. 2018-08-22 2018-08-22 [facility] [id number] [place] 09:30:00 09:30:00 t; Lesa BRYANT Ph savannah Rios M.D. 2018-07-29 2018-07-29 [facility] [id number] [place] 14:30:00 14:30:00 t; Lesa BRYANT Ph savannah Malcolm M.D. 2018-07-25 2018-07-25 [facility] [id number] UT 10:30:00 10:30:00 t; Lesa BRITT [facility] savannah SCHMITT M.D. 2018-07-22 2018-07-22 [facility] [id number] [place] 11:15:00 11:15:00 t; [facility] Orthopedics savannah BRYANT M.D. 2018-07-15 2018-07-15 [facility] [id number] [place] 10:30:00 10:30:00 t; Lesa [facility], Orthopedics savannah BRYANT M.D. 2018-07-09 2018-07-10 [facility] [id number] Memoria 18:05:00 00:00:00 Surgery r [place] 03 l [facility] 2018-07-09 2018-07-09 [facility] [id number] [place] 13:00:00 13:00:00 t; [facility] 2018-06-30 2018-06-30 [facility] [id number] [place] 10:15:00 10:15:00 t; Lesa [facility]ANT [facility], Orthopedics savannah BRYANT M.D. 2018-06-24 2018-06-24 Outpatient [facility] [id number] Memoria 00:15:00 05:59:00 r [place] 02 l [place] Kelly nn 2018-06-20 2018-06-[facility] [id number] [place] 13:40:00 13:40:00 t; SHANE MONROE [place] [facility] hybeatriz ROTH, Orthopedics a boyd MONROE NP 2018-06-19 2018-06-19 [facility] [id number] [place] 08:15:00 08:15:00 t; GEOVANNA FOLEY D.O. Physici KERRY, ans D.O. 2018-06-17 2018-06-17 [facility] [id number] [place] 15:45:00 15:45:00 t; Lesa BRYANT [facility] Valery MUNOZ, Orthopedics savannah BRYANT M.D. 2018-06-03 2018-06-03 [facility] [id number] [place] 13:45:00 13:45:00 t; GEOVANNA FOLEY D.O. [facility] savannah Vora.Judson 2018-05-16 2018-05-16 Emergency [facility] [id number] Memoria 10:52:00 13:34:00 r [place] 01 l [place] Kelly Results Test Description Test Time Test Comments Results Result Comments Source SEDIMENTATION RATE 2023-03-26 23:40:46 Test Item Value Reference Range Interpretation Comme nts ESR (test code = 43671-1) 8 See_Comment [ Automated message] The system which generated this result transmitted ref erence range: 0 - 10 mm/HR. The r eference range was not used to int erpret this result as normal/abnor mal. Lab Interpretation (test code = Normal 05945-5) [facility]. METABOLIC PANEL (84093)2023-03-26 23:32:47 Test Item Value Reference Range Interpretation Comments NA (test code = 141 mmol/L 135-145 6229391315) K (test code = 4.0 mmol/L 3.5-5.0 4354436024) CL (test code = 108 mmol/L 98-108 8411909565) CO2 TOTAL (test code 25 mmol/L 23-31 = 3241354014) AGAP (test code = 8 2-16 8755180259) BUN (test code = 10 mg/dL 7-23 6080155270) GLUCOSE (test code = 101 mg/dL 70-110 3468022531) CREATININE (test code 1.04 mg/dL 0.60-1.25 = 1719981539) TOTAL BILI (test code 0.4 mg/dL 0.1-1.1 = 1954824903) CALCIUM (test code = 9.1 mg/dL 8.6-10.6 2228818139) T PROTEIN (test code 7.5 g/dL 6.3-8.2 = 5368118117) ALBUMIN (test code = 4.2 g/dL 3.5-5.0 1461777302) ALK PHOS (test code = 113 U/L 34-122 5285355224) ALTv (test code = 42 U/L 5-50 1742-6) AST(SGOT) (test code 27 U/L 13-40 = 4788796244) eGFR (test code = 78.3 mL/min/1.73m2 0969687311) RYNE (test code = RYNE) Association of [...] or urine or abnormalities in imaging tests). [facility] WITH [id number] 22:51:22 Test Item Value Reference Range Interpretation Comments WBC (test code = 6.03 See_Comment [Automated 5590-2) message] The sy stem which generated this result transmitted reference range : 4.20 - 10.70 10*3/?L. The reference range was not used to interpret this result as normal/abnormal . RBC (test code = 4.87 See_Comment [Automated 789-8) message] The sy stem which generated this [...] RDW-SD (test code = 47.2 fL 38.5-51.6 15516-0) RDW-CV (test code = 14.6 % 12.1-15.4 788-0) PLT (test code = 189 See_Comment [Automated 777-3) message] The sy stem which generated this result transmitted reference range : 150 - 328 10*3/ ?L. The reference r caleb was not used to interpret this result as normal/abnormal . MPV (test code = 11.1 fL 9.8-13.0 38746-6) NRBC/100 WBC (test 0.0 See_Comment [Automat ed code = 6932183369) message] The system which generated this result transmitted reference range : 0.0 - 10.0 /100 WBCs. The refer ence range was not u sed to interpret th is result as normal/abnormal . NRBC x10^3 (test code See_Comment [Auto mated = 4953397638) message] The s ystem which generated this result transmitted reference range : 10*3/?L. The reference range was not used to interpret this result as normal/abnormal . GRAN MAT (NEUT) % 43.5 % (test code = 770-8) IMM GRAN % (test code 0.20 % = 7806332363) LYMPH % (test code = 36.7 % 736-9) MONO % (test code = 6.1 % 5905-5) EOS % (test code = 12.8 % 713-8) BASO % (test code = 0.7 % 706-2) GRAN MAT x10^3(ANC) 2.63 10*3/uL 1.99-6.95 (test code = 6409452058) IMM GRAN x10^3 (test 0.00-0.06 code = 6181459420) LYMPH x10^3 (test code 2.21 10*3/uL 1.09-3.23 = 731-0) MONO x10^3 (test code 0.37 10*3/uL 0.36-1.02 = 742-7) EOS x10^3 (test code = 0.77 10*3/uL 0.06-0.53 H 711-2) BASO x10^3 (test code 0.04 10*3/uL 0.01-0.09 = 704-7) Lab Interpretation Abnormal (test code = 02966-0) [facility] [id number] 02:15:00 Test Item Value Reference Range Interpretation Comments Urine culture (test SEE COMMENT Bacteriu katarzyna screen code = 4940937) negative. [facility]2023-05-29 02:15:00 Test Item Value Reference Range Interpretation Comments Urine culture (test SEE COMMENT Bacteriu katarzyna screen code = 7159110) negative. [facility]2023-05-29 02:15:00 Test Item Value Reference Range Interpretation Comments Urine culture (test SEE COMMENT Bacteriu katarzyna screen code = 7811331) negative. [facility]2023-05-29 02:15:00 Test Item Value Reference Range Interpretation Comments Urine culture (test SEE COMMENT Bacteriu katarzyna screen code = 7669597) negative. [facility] [id number] 02:15:00 Test Item Value Reference Range Interpretation Comments Urine culture (test SEE COMMENT Bacteriu katarzyna screen code = 0836173) negative. [facility] [id number] 02:15:00 Test Item Value Reference Range Interpretation Comments Urine culture (test SEE COMMENT Bacteriu katarzyna screen code = 3658990) negative. [facility] [id number] 02:15:00 Test Item Value Reference Range Interpretation Comments Urine culture (test SEE COMMENT Bacteriu katarzyna screen code = 2875189) negative. [facility] [id number] 02:15:00 Test Item Value Reference Range Interpretation Comments Urine culture (test SEE COMMENT Bacteriu katarzyna screen code = 4779513) negative. [facility]2023-05-29 02:15:00 Test Item Value Reference Range Interpretation Comments Urine culture (test SEE COMMENT Bacteriu katarzyna screen code = 3290760) negative. [facility]2023-05-29 02:15:00 Test Item Value Reference Range Interpretation Comments Urine culture (test SEE COMMENT Bacteriu katarzyna screen code = 7645630) negative. [facility] W/AUTO [id number] 00:00:00 Test Item Value Reference Range Interpretation Comments NUCLEATED RBCS (test 0.0 /100 WBC'S See_Comment [Aut omated message] code = 62290-1) The system [facility] generated this result transmit leydi reference range : 0.0 /100 WBC'S. The reference range was not used to interpret this result as normal/abnormal . ABSOLUTE EOSINOPHILS 0.56 K/UL See_Comment H [Autom ated message] (test code = The system [employer] 01577-9) generated this result transmit leydi reference range : 0.00-0.50 K/UL. The reference range was not used to interpret this result as normal/abnormal . ABSOLUTE LYMPHOCYTES 1.71 K/UL See_Comment [Autom ated message] (test code = The system [employer] 57513-1) generated this result transmit leydi reference range : 1.00-4.00 K/UL. The reference range was not used to interpret this result as normal/abnormal . ABSOLUTE MONOCYTES 0.34 K/UL See_Comment [Automat ed message] (test code = The system [facility] 52993-9) generated this result transmit leydi reference range : 0.20-1.00 K/UL. The reference range was not used to interpret this result as normal/abnormal . ABSOLUTE NEUTROPHILS 3.05 K/UL See_Comment [Autom ated message] (test code = The system [facility] 84571-8) generated this result transmit leydi reference range : 1.50-7.50 K/UL. The reference range was not used to interpret this result as normal/abnormal . BASOPHILS (test code 0.5 % = 91028-4) EOSINOPHILS (test 9.8 % code = 07755-0) HEMATOCRIT (test 42.9 % See_Comment [Automated message] code = 81832-6) The system [facility] generated this result transmit leydi reference range : 40.0-51.0 %. Th e reference range was not used to interpret this result as normal/abnormal . HEMOGLOBIN (test 13.9 G/DL See_Comment [Automated message] code = 718-7) The system [facility] generated this result transmit leydi reference range : 13.5-17.0 G/DL. The reference range was not used to interpret this result as normal/abnormal . LYMPHOCYTES (test 29.9 % code = 52122-3) MCH (test code = 27.4 PG See_Comment [Automated message] 16328-5) The system [facility] generated this result transmit leydi reference range : 25.0-33.0 PG. T he reference range was not used to interpret this result as normal/abnormal . MCHC (test code = 32.4 G/DL See_Comment [Automate d message] 33332-1) The system [facility] generated this result transmit leydi reference range : 31.0-36.0 G/DL. The reference range was not used to interpret this result as normal/abnormal . MCV (test code = 84.6 fL See_Comment [Automated message] 49909-0) The system [facility] generated this result transmit leydi reference range : 80.0-99.0 fL. T he reference range was not used to interpret this result as normal/abnormal . MONOCYTES (test code 5.9 % = 12682-6) NEUTROPHILS (test 53.4 % code = 34462-5) PLATELET COUNT (test 202 K/UL See_Comment [Autom ated message] code = 11224-8) The system [employer] generated this result transmit leydi reference range : 130-400 K/UL. T he reference range was not used to interpret this result as normal/abnormal . RBC (test code = 5.07 M/UL See_Comment [Automated message] 93247-9) The system [employer] generated this result transmit leydi reference range : 4.50-6.10 M/UL. The reference range was not used to interpret this result as normal/abnormal . RDW (test code = 13.5 % See_Comment [Automated message] 33320-9) The system [employer] generated this result transmit leydi reference range : 11.5-15.0 %. Th e reference range was not used to interpret this result as normal/abnormal . WBC (test code = 5.7 K/UL See_Comment [Automated message] 53342-5) The system [employer] generated this result transmit leydi reference range : 3.5-11.0 K/UL. The reference range was not used to interpret this result as normal/abnormal . HEMOGLOBIN [id number] 00:00:00 Test Item Value Reference Range Interpretation Comments HEMOGLOBIN A1c (test 6.2 % See_Comment H [Autom ated message] The code = 4548-4) system which generated this result tra nsmitted reference range : 4.2-5.6 %. The referenc e range was not used to interpret this result as normal/abnormal . TSH REFLEX TO FREE [id number] 00:00:00 Test Item Value Reference Range Interpretation Comments TSH REFLEX TO FREE 1.480 UIU/ML See_Comment [Automat ed message] T4 (test code = The system w [facility] 40479-0) generated this result transmitted ref erence range: 0.400-4. 100 UIU/ML. The ref erence range was not u sed to interpret this result as normal/abnor mal. URINALYSIS (CULTURE IF INDICATED)2022-12-17 00:00:00 Test Item Value Reference Range Interpretation Comments APPEARANCE (test code = CLEAR CLEAR 5767-9) BACTERIA (test code = NONE SEEN NONE SEEN 61844-3) BILIRUBIN (test code = NEGATIVE NEGATIVE 1270-3) CASTS, HYALINE (test NONE SEEN NONE-TRACE code = 89583-9) COLOR (test code = YELLOW YELLOW-STRAW 5778-6) EPITHELIAL CELLS (test 0-5 /HPF See_Comment [Aut omated message] code = 95413-5) The system [employer] generated this result transmitted ref erence range: 0-5 /HPF . The reference range was not used to int erpret this result as normal/abnormal . GLUCOSE (test code = NEGATIVE NEGATIVE 5792-7) KETONES (test code = NEGATIVE NEGATIVE 5797-6) LEUKOCYTE ESTERASE NEGATIVE NEGATIVE (test code = 5799-2) NITRITE (test code = NEGATIVE NEGATIVE 5802-4) OCCULT BLOOD (test code NEGATIVE NEGATIVE = 18774-1) pH (test code = 5803-2) 5.0 5.0-9.0 PROTEIN (test code = NEGATIVE NEGATIVE 36638-8) RED BLOOD CELLS (test 0-2 /HPF See_Comment [Auto mated message] code = 00444-8) The system [employer] generated this result transmitted ref erence range: 0-2 /HPF . The reference range was not used to int erpret this result as normal/abnormal . SPECIFIC GRAVITY (test 1.017 1.005-1.035 code = 5811-5) UROBILINOGEN (test code 0.2 MG/DL See_Comment [Au tomated message] = 98935-0) The system [employer] generated this result transmitted ref erence range: <=2.0 MG /DL. The reference r caleb was not used to interpret this result as normal/abnor mal. WHITE BLOOD CELLS (test 0-5 /HPF See_Comment [Au tomated message] code = 69603-7) The system [employer] generated this result transmitted ref erence range: 0-5 /HPF . The reference range was not used to int erpret this result as normal/abnormal . LIPID PANEL WITH REFLEX DIRECT [id number] 00:00:00 Test Item Value Reference Range Interpretation Comments CALC LDL CHOL (test 118 MG/DL See_Comment H [Automa leydi message] code = 82379-2) The system [employer] generated this result transmit leydi reference range : <100 MG/DL. The reference range was not used to interpret this result as normal/abnormal . CHOLESTEROL (test code 193 MG/DL See_Comment [Aut omated message] = 2092-3) The system [employer] generated this result transmit leydi reference range : <200 MG/DL. The reference range was not used to interpret this result as normal/abnormal . HDL CHOLESTEROL (test 50 MG/DL See_Comment [Auto mated message] code = 2085-9) The system [employer] generated this result transmit leydi reference range : >39 MG/DL. The refe rence range was not u sed to interpret th is result as normal/abnormal . RISK RATIO LDL/HDL 2.36 RATIO See_Comment [Automat ed message] (test code = 55095-2) The sy stem which generated this result transmit leydi reference range : <3.55 RATIO. Th e reference range was not used to interpret this result as normal/abnormal . TRIGLYCERIDES (test 133 MG/DL See_Comment [Automa leydi message] code = 2571-8) The system [employer] generated this result transmit leydi reference range : <150 MG/DL. The reference range was not used to interpret this result as normal/abnormal . COMPREHENSIVE METABOLIC [id number] 00:00:00 Test Item Value Reference Range Interpretation Comments ALBUMIN (test code = 4.3 G/DL See_Comment [Autom ated message] 1751-7) The system [employer] generated this result transmit leydi reference range : 3.5-5.2 G/DL. T he reference range was not used to interpret this result as normal/abnormal . ALKALINE PHOSPHATASE 129 U/L See_Comment H [Autom ated message] (test code = 6768-6) The sys tem which generated this result transmit leydi reference range : 40-119 U/L. The reference range was not used to interpret this result as normal/abnormal . BILIRUBIN, TOTAL 0.3 MG/DL See_Comment [Automated message] (test code = 1975-2) The sys tem which generated this result transmit leydi reference range : <=1.2 MG/DL. Th e reference range was not used to interpret this result as normal/abnormal . BUN (test code = 16 MG/DL See_Comment [Automated message] 3094-0) The system [employer] generated this result transmit leydi reference range : 6-20 MG/DL. The reference range was not used to interpret this result as normal/abnormal . CALCIUM (test code = 9.8 MG/DL See_Comment [Autom ated message] 77774-1) The system [facility] generated this result transmit leydi reference range : 8.5-10.5 MG/DL. The reference range was not used to interpret this result as normal/abnormal . CALC A/G RATIO (test 1.6 RATIO See_Comment [Autom ated message] code = 1759-0) The system [facility] generated this result transmit leydi reference range : 1.0-2.6 RATIO. The reference range was not used to interpret this result as normal/abnormal . CALC BUN/CREAT (test 13 RATIO See_Comment [Autom ated message] code = 3097-3) The system [facility] generated this result transmit leydi reference range : 6-28 RATIO. The reference range was not used to interpret this result as normal/abnormal . CALC GLOBULIN (test 2.7 G/DL See_Comment [Automa leydi message] code = 81931-6) The system [facility] generated this result transmit leydi reference range : 1.9-3.7 G/DL. T he reference range was not used to interpret this result as normal/abnormal . CARBON DIOXIDE (test 25 MEQ/L See_Comment [Autom ated message] code = 1963-8) The system [facility] generated this result transmit leydi reference range : 19-31 MEQ/L. Th e reference range was not used to interpret this result as normal/abnormal . CHLORIDE (test code 107 MEQ/L See_Comment [Automa leydi message] = 2074-0) The system [facility] generated this result transmit leydi reference range : 95-107 MEQ/L. T he reference range was not used to interpret this result as normal/abnormal . CREATININE (test 1.22 MG/DL See_Comment [Automated message] code = 2160-0) The system [facility] generated this result transmit leydi reference range : 0.80-1.40 MG/DL . The reference range was not used to interpret this result as normal/abnormal . eGFR (2020 CKD-EPI) 76 ML/MIN/1.73 See_Comment [Auto mated message] (test code = The system [facility] 36356-5) generated this result transmit leydi reference range : >60 ML/MIN/1.73. Th e reference range was not used to interpret this result as normal/abnormal . GLUCOSE (test code = 107 MG/DL See_Comment H [Autom ated message] 1558-6) The system [facility] generated this result transmit leydi reference range : 70-99 MG/DL. Th e reference range was not used to interpret this result as normal/abnormal . POTASSIUM (test code 4.6 MEQ/L See_Comment [Autom ated message] = 6353-3) The system [employer] generated this result transmit leydi reference range : 3.5-5.4 MEQ/L. The reference range was not used to interpret this result as normal/abnormal . PROTEIN, TOTAL (test 7.0 G/DL See_Comment [Autom ated message] code = 2885-2) The system [employer] [facility] generated this result transmit leydi reference range : 6.1-8.3 G/DL. T he reference range was not used to interpret this result as normal/abnormal . AST (test code = 17 U/L See_Comment [Automated message] 1920-8) The system [employer] generated this result transmit leydi reference range : 9-50 U/L. The reference range was not used to interpret this result as normal/abnormal . ALT (test code = 21 U/L See_Comment [Automated message] 1062-6) The system [employer] generated this result transmit leydi reference range : 5-50 U/L. The reference range was not used to interpret this result as normal/abnormal . SODIUM (test code = 141 MEQ/L See_Comment [Automa leydi message] 3661-2) The system [employer] generated this result transmit leydi reference range : 133-146 MEQ/L. The reference range was not used to interpret this result as normal/abnormal . [id number] 21:10:35 Test Item Value Reference Range Interpretation [...] mastoideum, similar to prior CT temporal bone. [facility] AND [id number] 06:16:00 Test Item Value Reference Range Interpretation Comments UA Color (test code = Yellow *NA*(05/19/22 UA Color) 1:16 AM) [facility] AND [id number] 06:16:00 Test Item Value Reference Range Interpretation Comments UA Turbidity (test code = Clear (05/19/22 1:16 UA Turbidity) AM) [facility] AND [id number] 06:16:00 Test Item Value Reference Range Interpretation Comments UA Spec Grav (test code = UA Spec 1.010 1 Grav) [facility] AND [id number] 06:16:00 Test Item Value Reference Range Interpretation Comments UA pH (test code = UA pH) 6.0 1 5.0-8.0 [facility] [place] [id number] 06:16:00 Test Item Value Reference Range Interpretation Comments UA Protein (test code = UA Negative mg/dL Protein) [facility] AND [id number] 06:16:00 Test Item Value Reference Range Interpretation Comments UA Glucose (test code = UA Negative mg/dL Glucose) [facility] AND [id number] 06:16:00 Test Item Value Reference Range Interpretation Comments UA Ketones (test code = UA Negative mg/dL Ketones) [facility] AND [id number] 06:16:00 Test Item Value Reference Range Interpretation Comments UA Bili (test code = Negative *NA*(05/19/22 UA Bili) 1:16 AM) [facility] AND [id number] 06:16:00 Test Item Value Reference Range Interpretation Comments UA Blood (test code = Negative (05/19/22 1:16 UA Blood) AM) [facility] AND [id number] 06:16:00 Test Item Value Reference Range Interpretation Comments UA Urobilinogen (test code = UA 0.2 0.1-1.0 Urobilinogen) [facility] AND [id number] 06:16:00 Test Item Value Reference Range Interpretation Comments UA Nitrite (test code Negative (05/19/22 1:16 = UA Nitrite) AM) [facility] AND [id number] 06:16:00 Test Item Value Reference Range Interpretation Comments UA Leuk Est (test Negative (05/19/22 1:16 code = UA Leuk Est) AM) [facility] AND [id number] 06:16:00 Test Item Value Reference Range Interpretation Comments UA Sq Epi (test code = UA Sq Epi) Rare /LPF [facility] AND [id number] 06:16:00 Test Item Value Reference Range Interpretation Comments UA WBC (test code = no gt See_Comment [Automa leydi message] The UA WBC) system which ge nerated this result transmit leydi reference range : <=5. The reference range was not used to interpr et this result as krishna l/abnormal. [facility] AND [id number] 06:16:00 Test Item Value Reference Range Interpretation Comments UA RBC (test code = 1 See_Comment [Automa leydi message] The UA RBC) system which ge nerated this result transmit leydi reference range : <=2. The reference range was not used to interpr et this result as krishna l/abnormal. [facility] [email or web address] [id number] 03:27:00 Test Item Value Reference Range Interpretation Comments HS Troponin I Baseline (test code = HS 48 Troponin I Baseline) [facility] [email or web address] [id number] 03:18:00 Test Item Value Reference Range Interpretation Comments HS Troponin I (test code = HS Troponin 59 I) [facility] [employer] [id number] 03:18:00 Test Item Value Reference Range Interpretation Comments Phosphorus (test code = Phosphorus) 2.7 2.5-4.5 [facility] [employer] [id number] 03:18:00 Test Item Value Reference Range Interpretation Comments Magnesium Lvl (test code = Magnesium 2.2 1.8-2.4 Lvl) [facility] youcalcPARATHYROID [id number] 03:18:00 Test Item Value Reference Range Interpretation Comments Ca Ion WB (test code = Ca Ion WB) 1.07 1.05-1.25 [facility] [employer] [id number] 03:18:00 Test Item Value Reference Range Interpretation Comments Ca Ion at pH 7.4 WB (test code = Ca Ion 1.09 1.05-1.25 at pH 7.4 WB) [facility] [email or web address] [id number] 01:30:00 Test Item Value Reference Range Interpretation Comments HS Troponin I 1 Hr (test code = HS 41 Troponin I 1 Hr) [facility] [employer]2022-10-08 01:30:00 Test Item Value Reference Range Interpretation Comments HS Troponin I 0 to 1 xxxxxxx (05/18/22 8:30 Hour Delta (test code = PM) HS Troponin I 0 to 1 Hour Delta) [facility] [employer] [id number] 01:30:00 Test Item Value Reference Range Interpretation Comments Glucose Lvl (test code = Glucose Lvl) 107 70-99 [facility] [employer] [id number] 01:30:00 Test Item Value Reference Range Interpretation Comments BUN (test code = BUN) 18 7-22 [facility] [employer] [id number] 01:30:00 Test Item Value Reference Range Interpretation Comments Creatinine Lvl (test code = Creatinine 1.37 0.50-1.40 Lvl) [facility]2022-10-08 01:30:00 Test Item Value Reference Range Interpretation Comments Sodium Lvl (test code = Sodium Lvl) 137 135-145 [place] 195202-10-08 01:30:00 Test Item Value Reference Range Interpretation Comments Potassium Lvl (test code = Potassium 3.8 3.5-5.1 Lvl) [place] 195202-10-08 01:30:00 Test Item Value Reference Range Interpretation Comments Chloride Lvl (test code = Chloride Lvl) 107 95-109 [place] 195202-10-08 01:30:00 Test Item Value Reference Range Interpretation Comments CO2 (test code = CO2) 25 24-32 [place] 195202-10-08 01:30:00 Test Item Value Reference Range Interpretation Comments Calcium Lvl (test code = Calcium Lvl) 9.7 8.5-10.5 [place] 195202-10-08 01:30:00 Test Item Value Reference Range Interpretation Comments Total Protein (test code = Total 7.6 6.4-8.4 Protein) [place] 195202-10-08 01:30:00 Test Item Value Reference Range Interpretation Comments Albumin Lvl (test code = Albumin Lvl) 3.8 3.5-5.0 [place] 195202-10-08 01:30:00 Test Item Value Reference Range Interpretation Comments ALT (test code = ALT) 38 See_Comment [Auto mated message] The system which ge nerated this result transmit leydi reference range : <=65. The reference range was not used to interpr et this result as krishna l/abnormal. [place] 195202-10-08 01:30:00 Test Item Value Reference Range Interpretation Comments AST (test code = AST) 15 See_Comment [Auto mated message] The system which ge nerated this result transmit leydi reference range : <=37. The reference range was not used to interpr et this result as krishna l/abnormal. [place] [address]-10-08 01:30:00 Test Item Value Reference Range Interpretation Comments Alk Phos (test code = Alk Phos) 119 39-136 [place] 195202-10-08 01:30:00 Test Item Value Reference Range Interpretation Comments Bili Total (test code = Bili Total) 0.6 0.2-1.3 [facility]2022-10-08 01:30:00 Test Item Value Reference Range Interpretation Comments AGAP (test code = AGAP) 8.8 10.0-20.0 [facility] [id number] 01:30:00 Test Item Value Reference Range Interpretation Comments B/C Ratio (test code = B/C Ratio) 13 1 6-25 [facility]2022-10-08 01:30:00 Test Item Value Reference Range Interpretation Comments Globulin (test code = Globulin) 3.8 2.7-4.2 [facility]2022-10-08 01:30:00 Test Item Value Reference Range Interpretation Comments A/G Ratio (test code = A/G Ratio) 1.0 1 0.7-1.6 [facility]2022-10-08 01:30:00 Test Item Value Reference Range Interpretation Comments eGFR (test code = eGFR) 66 [facility]2022-10-08 01:30:00 Test Item Value Reference Range Interpretation Comments Lipase Lvl (test code = Lipase Lvl) 75 73-393 [facility]CARD[facility] [id number] 20:19:00 Test Item Value Reference Range Interpretation Comments HS Troponin I (test code = HS Troponin 7 I) [facility]2022-10-07 20:19:00 Test Item Value Reference Range Interpretation Comments Glucose Lvl (test code = Glucose Lvl) 101 70-99 [facility] [id number] 20:19:00 Test Item Value Reference Range Interpretation Comments BUN (test code = BUN) 17 7-22 [facility]2022-10-07 20:19:00 Test Item Value Reference Range Interpretation Comments Creatinine Lvl (test code = Creatinine 1.36 0.50-1.40 Lvl) [facility] [id number] 20:19:00 Test Item Value Reference Range Interpretation Comments Sodium Lvl (test code = Sodium Lvl) 139 135-145 [facility] [id number] 20:19:00 Test Item Value Reference Range Interpretation Comments Potassium Lvl (test code = Potassium 3.6 3.5-5.1 Lvl) [place] 195202-10-07 20:19:00 Test Item Value Reference Range Interpretation Comments Chloride Lvl (test code = Chloride Lvl) 106 95-109 [place] 195202-10-07 20:19:00 Test Item Value Reference Range Interpretation Comments CO2 (test code = CO2) 25 24-32 [place] 195202-10-07 20:19:00 Test Item Value Reference Range Interpretation Comments Calcium Lvl (test code = Calcium Lvl) 9.9 8.5-10.5 [place] 195202-10-07 20:19:00 Test Item Value Reference Range Interpretation Comments AGAP (test code = AGAP) 11.6 10.0-20.0 [place] 195202-10-07 20:19:00 Test Item Value Reference Range Interpretation Comments eGFR (test code = eGFR) 67 [place] 195202-10-07 20:19:00 Test Item Value Reference Range Interpretation Comments Lactic Acid Lvl (test code = Lactic 1.1 0.5-2.2 Acid Lvl) [place] 592332-10-07 20:19:00 Test Item Value Reference Range Interpretation Comments WBC (test code = WBC) 8.3 3.7-10.4 [place] 592332-10-07 20:19:00 Test Item Value Reference Range Interpretation Comments RBC (test code = RBC) 5.68 4.70-6.10 [place] 592332-10-07 20:19:00 Test Item Value Reference Range Interpretation Comments Hgb (test code = Hgb) 15.6 14.0-18.0 [place] [address]-10-07 20:19:00 Test Item Value Reference Range Interpretation Comments Hct (test code = Hct) 48.0 42.0-54.0 [place] [address]-10-07 20:19:00 Test Item Value Reference Range Interpretation Comments MCV (test code = MCV) 84.5 80.0-94.0 [place] [address]-10-07 20:19:00 Test Item Value Reference Range Interpretation Comments MCH (test code = MCH) 27.4 pg 27.0-31.0 [place] [address]-10-07 20:19:00 Test Item Value Reference Range Interpretation Comments MCHC (test code = MCHC) 32.4 32.0-36.0 [place] 592332-10-07 20:19:00 Test Item Value Reference Range Interpretation Comments RDW (test code = RDW) 14.8 11.5-14.5 [place] 592332-10-07 20:19:00 Test Item Value Reference Range Interpretation Comments Platelet (test code = Platelet) 207 133-450 [id number] 20:19:00 Test Item Value Reference Range Interpretation Comments MPV (test code = MPV) 9.5 7.4-10.4 [place] 592332-10-07 20:19:00 Test Item Value Reference Range Interpretation Comments PT (test code = PT) 12.0 s 12.0-14.7 [facility] McKinneyFdukalySRQBTXEBZB5832-20-23 20:19:00 Test Item Value Reference Range Interpretation Comments INR (test code = INR) 0.89 1 0.85-1.17 [facility] McKinneyGaiejkyISKXAOEPOQ3920-97-84 20:19:00 Test Item Value Reference Range Interpretation Comments PTT (test code = PTT) 27.2 s 22.9-35.8 [place] 592332-10-07 20:19:00 Test Item Value Reference Range Interpretation Comments Segs (test code = Segs) 51.5 45.0-75.0 [facility] McK[id number] 20:19:00 Test Item Value Reference Range Interpretation Comments Lymphocytes (test code = Lymphocytes) 38.1 20.0-40.0 [facility] McKinneyKwgnufiCYHMRDXKER4219-99-22 20:19:00 Test Item Value Reference Range Interpretation Comments Monocytes (test code = Monocytes) 6.0 2.0-12.0 [place] [address]-10-07 20:19:00 Test Item Value Reference Range Interpretation Comments Eosinophils (test code = 3.9 See_Comment [A utomated message] The Eosinophils) system which ge nerated this result tra nsmitted reference range : <=4.0. The reference r caleb was not used to int erpret this result as normal/abnormal . [place] 592332-10-07 20:19:00 Test Item Value Reference Range Interpretation Comments Basophils (test code = 0.5 See_Comment [Aut omated message] The Basophils) system which ge nerated this result tra nsmitted reference range : <=1.0. The reference r caleb was not used to int erpret this result as normal/abnormal . [facility] Mc[id number] 20:19:00 Test Item Value Reference Range Interpretation Comments Neutrophils # (test code = Neutrophils 4.3 1.5-8.1 #) [facility] McKinneyDfqtdsqLBTZFLQECC1092-95-93 20:19:00 Test Item Value Reference Range Interpretation Comments Lymphocytes # (test code = Lymphocytes 3.2 1.0-5.5 #) [facility] McKinneyVgqpbsvXGWCFEECZZ3105-93-02 20:19:00 Test Item Value Reference Range Interpretation Comments Monocytes # (test code 0.5 See_Comment [Aut omated message] The = Monocytes #) system which generated this result tra nsmitted reference range : <=0.8. The reference r caleb was not used to int erpret this result as normal/abnormal . [facility] McKinneyJxthrhtYAWXJCFRWS8704-55-15 20:19:00 Test Item Value Reference Range Interpretation Comments Eosinophils # (test code 0.3 See_Comment [A utomated message] The = Eosinophils #) system whic h generated this result tra nsmitted reference range : <=0.5. The reference r caleb was not used to int erpret this result as normal/abnormal . [facility] Campus[facility] [id number] 05:26:00 Test Item Value Reference Range Interpretation Comments ABO/Rh (test code = ABO/Rh) O POS [facility] [employer] [facility] [id number] 05:26:00 Test Item Value Reference Range Interpretation Comments Antibody Scrn (test Negative (05/17/22 code = Antibody Scrn) 12:26 AM) [facility] CampusSong[facility] [id number] 05:26:00 Test Item Value Reference Range Interpretation Comments Glucose Lvl (test code = Glucose Lvl) 94 70-99 [facility] [id number] 05:26:00 Test Item Value Reference Range Interpretation Comments BUN (test code = BUN) 17 7-22 [facility] Campus[facility] [id number] 05:26:00 Test Item Value Reference Range Interpretation Comments Creatinine Lvl (test code = Creatinine 1.32 0.50-1.40 Lvl) [place] 195202-10-06 05:26:00 Test Item Value Reference Range Interpretation Comments Sodium Lvl (test code = Sodium Lvl) 140 135-145 [place] 195202-10-06 05:26:00 Test Item Value Reference Range Interpretation Comments Potassium Lvl (test code = Potassium 3.9 3.5-5.1 Lvl) [place] 195202-10-06 05:26:00 Test Item Value Reference Range Interpretation Comments Chloride Lvl (test code = Chloride Lvl) 108 95-109 [place] 195202-10-06 05:26:00 Test Item Value Reference Range Interpretation Comments CO2 (test code = CO2) 28 24-32 [place] 195202-10-06 05:26:00 Test Item Value Reference Range Interpretation Comments Calcium Lvl (test code = Calcium Lvl) 9.3 8.5-10.5 [place] 195202-10-06 05:26:00 Test Item Value Reference Range Interpretation Comments AGAP (test code = AGAP) 7.9 10.0-20.0 [place] 195202-10-06 05:26:00 Test Item Value Reference Range Interpretation Comments eGFR (test code = eGFR) 69 [place] 592332-10-06 05:26:00 Test Item Value Reference Range Interpretation Comments Segs (test code = Segs) 46.4 45.0-75.0 [place] 592332-10-06 05:26:00 Test Item Value Reference Range Interpretation Comments Lymphocytes (test code = Lymphocytes) 43.4 20.0-40.0 [place] 592332-10-06 05:26:00 Test Item Value Reference Range Interpretation Comments Monocytes (test code = Monocytes) 7.2 2.0-12.0 [place] [address]-10-06 05:26:00 Test Item Value Reference Range Interpretation Comments Eosinophils (test code = 2.1 See_Comment [A utomated message] The Eosinophils) system which ge nerated this result tra nsmitted reference range : <=4.0. The reference r caleb was not used to int erpret this result as normal/abnormal . [place] 592332-10-06 05:26:00 Test Item Value Reference Range Interpretation Comments Basophils (test code = 0.9 See_Comment [Aut omated message] The Basophils) system which ge nerated this result tra nsmitted reference range : <=1.0. The reference r caleb was not used to int erpret this result as normal/abnormal . [facility] McKinneyMorapksSLLSMOGFDN3271-26-62 05:26:00 Test Item Value Reference Range Interpretation Comments Neutrophils # (test code = Neutrophils 3.9 1.5-8.1 #) [facility] McK[id number] 05:26:00 Test Item Value Reference Range Interpretation Comments Lymphocytes # (test code = Lymphocytes 3.7 1.0-5.5 #) [facility] McKinneyVmgobcbZLRMLGIDMG4752-33-77 05:26:00 Test Item Value Reference Range Interpretation Comments Monocytes # (test code 0.6 See_Comment [Aut omated message] The = Monocytes #) system which generated this result tra nsmitted reference range : <=0.8. The reference r caleb was not used to int erpret this result as normal/abnormal . [facility] McKinneyIndrrgbCAGNBWOPYH7549-29-28 05:26:00 Test Item Value Reference Range Interpretation Comments Eosinophils # (test code 0.2 See_Comment [A utomated message] The = Eosinophils #) system whic h generated this result tra nsmitted reference range : <=0.5. The reference r caleb was not used to int erpret this result as normal/abnormal . [facility] McKinneyNlyucfiZRVJINGCSN3853-88-28 05:26:00 Test Item Value Reference Range Interpretation Comments Basophils # (test code 0.1 See_Comment [Aut omated message] The = Basophils #) system which generated this result tra nsmitted reference range : <=0.2. The reference r caleb was not used to int erpret this result as normal/abnormal . [facility] McKinneyRprmyoiYPKKNGHBLP7379-45-37 05:26:00 Test Item Value Reference Range Interpretation Comments WBC (test code = WBC) 8.4 3.7-10.4 [place] 592332-10-06 05:26:00 Test Item Value Reference Range Interpretation Comments RBC (test code = RBC) 4.95 4.70-6.10 [place] 592332-10-06 05:26:00 Test Item Value Reference Range Interpretation Comments Hgb (test code = Hgb) 13.7 14.0-18.0 [place] 592332-10-06 05:26:00 Test Item Value Reference Range Interpretation Comments Hct (test code = Hct) 41.5 42.0-54.0 [place] 592332-10-06 05:26:00 Test Item Value Reference Range Interpretation Comments MCV (test code = MCV) 83.7 80.0-94.0 [place] 592332-10-06 05:26:00 Test Item Value Reference Range Interpretation Comments MCH (test code = MCH) 27.6 pg 27.0-31.0 [facility]neyExowxklOOZPLVIZAM2303-25-83 05:26:00 Test Item Value Reference Range Interpretation Comments MCHC (test code = MCHC) 33.0 32.0-36.0 [facility] McKinneyYzzbujsLRVSLDRNEJ9420-53-55 05:26:00 Test Item Value Reference Range Interpretation Comments RDW (test code = RDW) 14.6 11.5-14.5 [place] 592332-10-06 05:26:00 Test Item Value Reference Range Interpretation Comments Platelet (test code = Platelet) 187 133-450 [facility] McKinneyKcacausUEHCFRHGFS5662-96-45 05:26:00 Test Item Value Reference Range Interpretation Comments MPV (test code = MPV) 9.7 7.4-10.4 [place] 592332-10-06 05:26:00 Test Item Value Reference Range Interpretation Comments PTT (test code = PTT) 25.7 s 22.9-35.8 [place] 592332-10-06 05:26:00 Test Item Value Reference Range Interpretation Comments PT (test code = PT) 11.9 s 12.0-14.7 [place] [address]-10-06 05:26:00 Test Item Value Reference Range Interpretation Comments INR (test code = INR) 0.88 1 0.85-1.17 [place] [address]-10-06 05:26:00 Test Item Value Reference Range Interpretation Comments TEG Interp (test Thromboelastograph results code = TEG show shortened value of R. Interp) This finding is suggestive of enzymatic hypercoagulation. CPT:22131 [facility] McKinneyTiqmeipPYTRNUPXFX3384-47-71 05:26:00 Test Item Value Reference Range Interpretation Comments R-time (test code = R-time) 4.5 min 5.0-10.0 [place] 592332-10-06 05:26:00 Test Item Value Reference Range Interpretation Comments K-time (test code = K-time) 1.2 min 1.0-3.0 [place] 592332-10-06 05:26:00 Test Item Value Reference Range Interpretation Comments Angle (test code = Angle) 71.2 degrees 53.0-72.0 [facility] McKinneyLzeejxqLFXBWEBJBS5173-79-34 05:26:00 Test Item Value Reference Range Interpretation Comments Max Amp (test code = Max Amp) 61.8 mm 50.0-70.0 [facility] McKinneyUmdteoyKJRXFKTEBG5583-88-89 05:26:00 Test Item Value Reference Range Interpretation Comments G-value (test code = G-value) 8.1 4.5-11.0 [place] 592332-10-06 05:26:00 Test Item Value Reference Range Interpretation Comments Ly30 (test code = 0.3 See_Comment [Automate d message] The Ly30) system which ge nerated this result transmit leydi reference range : <=7.5. The reference range was not used to interpr et this result as krishna l/abnormal. [facility] McKinneyLogqjhaCIRIJMWTBO6594-84-63 05:26:00 Test Item Value Reference Range Interpretation Comments Coag Index (test code 1.8 1 See_Comment [Auto mated message] The = Coag Index) system which g enerated this result transmit leydi reference range : <=3.0. The reference range was not used to interpr et this result as krishna l/abnormal. [facility] McKinneyEudkbgbNWWZNPKLSJ8550-28-21 05:26:00 Test Item Value Reference Range Interpretation Comments TEG Data (test code = See Note (05/17/22 12:26 TEG Data) AM) [facility] CampusWjtywmbORADNRYKWB7930-38-31 03:56:00 Test Item Value Reference Range Interpretation Comments Coronavirus (COVID-19) Not Detected (05/16/22 LIZBETH (test code = 10:56 PM) Coronavirus (COVID-19) LIZBETH) [facility] McKinneyYdpxtqsOLTAFCOUVQ1686-93-19 23:51:55 Test Item Value Reference Range Interpretation Comments WBC X 10x3 (test code = WBC X 10x3) 9.1 3.7-10.4 [facility] McKinneyWqdnnbyNSNSDBFGKB5363-62-74 23:51:55 Test Item Value Reference Range Interpretation Comments RBC X 10x6 (test code = RBC X 10x6) 4.96 4.70-6.10 [facility] McKinneyCjyqnflJSVLFFBYNS4626-60-82 23:51:55 Test Item Value Reference Range Interpretation Comments Hgb (test code = Hgb) 13.7 14.0-18.0 [facility] McKinneyPjgdffhNNTDOOMLEO6880-16-53 23:51:55 Test Item Value Reference Range Interpretation Comments Hct (test code = Hct) 42.3 42.0-54.0 [facility] McKinneyHonxuwnPFISUGFJRT8747-87-33 23:51:55 Test Item Value Reference Range Interpretation Comments MCV (test code = MCV) 85.3 80.0-94.0 [facility] McKinneyQcmcpqkMDUNWUIOAQ6206-08-81 23:51:55 Test Item Value Reference Range Interpretation Comments MCH (test code = MCH) 27.6 pg 27.0-31.0 [facility] McKinneyKoerraiPNOORZEQKO4610-53-28 23:51:55 Test Item Value Reference Range Interpretation Comments MCHC (test code = MCHC) 32.4 32.0-36.0 [facility] McKinneyCqalgemDLALRNPNTR9911-25-79 23:51:55 Test Item Value Reference Range Interpretation Comments RDW (test code = RDW) 14.7 11.5-14.5 [facility] McKinneyJxhplfaDLIRERBYVR8107-94-30 23:51:55 Test Item Value Reference Range Interpretation Comments Platelet (test code = Platelet) 183 133-450 [facility] McKinneyPcakqvbJLUYNQHHWH6815-30-95 23:51:55 Test Item Value Reference Range Interpretation Comments MPV (test code = MPV) 9.2 7.4-10.4 [facility] McKinneyXigrqifPLNKONXLBY9036-40-97 23:51:55 Test Item Value Reference Range Interpretation Comments Segs (test code = Segs) 56.1 45.0-75.0 [facility] McKinneyTvkfqnyILRSXEFMRX4816-82-08 23:51:55 Test Item Value Reference Range Interpretation Comments Lymphocytes (test code = Lymphocytes) 35.0 20.0-40.0 [facility] McKinneyWqrmkuuNWJBUEBYMQ1246-06-36 23:51:55 Test Item Value Reference Range Interpretation Comments Monocytes (test code = Monocytes) 6.5 2.0-12.0 [facility] McKinneyTkawsmmDFOBUMOGWK9085-78-01 23:51:55 Test Item Value Reference Range Interpretation Comments Eosinophils (test code = 1.8 See_Comment [A utomated message] The Eosinophils) system which ge nerated this result tra nsmitted reference range : <=4.0. The reference r caleb was not used to int erpret this result as normal/abnormal . [facility] McKinneyQodjuxlXAXILTYFSV4528-79-22 23:51:55 Test Item Value Reference Range Interpretation Comments Basophils (test code = 0.6 See_Comment [Aut omated message] The Basophils) system which ge nerated this result tra nsmitted reference range : <=1.0. The reference r caleb was not used to int erpret this result as normal/abnormal . [facility] McKinneyPggpuamRNEVWQNSYZ7873-22-84 23:51:55 Test Item Value Reference Range Interpretation Comments Neutrophils # (test code = Neutrophils 5.1 1.5-8.1 #) [facility] McKinneyDnhauyxERTVGXHMPS0821-13-65 23:51:55 Test Item Value Reference Range Interpretation Comments Lymphocytes # (test code = Lymphocytes 3.2 1.0-5.5 #) [facility] McKinneySecxengFZKXDTJDZF9478-97-59 23:51:55 Test Item Value Reference Range Interpretation Comments Monocytes # (test code 0.6 See_Comment [Aut omated message] The = Monocytes #) system which generated this result tra nsmitted reference range : <=0.8. The reference r caleb was not used to int erpret this result as normal/abnormal . [facility] McKinneyMsjisciBFTPYQGTVW0750-84-93 23:51:55 Test Item Value Reference Range Interpretation Comments Eosinophils # (test code 0.2 See_Comment [A utomated message] The = Eosinophils #) system whic h generated this result tra nsmitted reference range : <=0.5. The reference r caleb was not used to int erpret this result as normal/abnormal . [facility] CampusBACTERIAL - [id number] 17:30:00 Test Item Value Reference Range Interpretation Comments Source Strep (test code Cerebral Spinal Fluid = Source Strep) [facility] CampusBACTERIAL - [id number] 17:30:00 Test Item Value Reference Range Interpretation Comments Strep pneumoniae Ag Negative (05/12/22 (test code = Strep 12:30 PM) pneumoniae Ag) [facility]2022-10-01 17:30:00 Test Item Value Reference Range Interpretation Comments Tube Num CSF (test code = Tube Num CSF) 1 1 [facility] [id number] 17:30:00 Test Item Value Reference Range Interpretation Comments Color CSF (test code Colorless (05/12/22 12:30 = Color CSF) PM) [facility] [id number] 17:30:00 Test Item Value Reference Range Interpretation Comments Clarity CSF (test code = Clear (05/12/22 12:30 Clarity CSF) PM) [facility] [id number] 17:30:00 Test Item Value Reference Range Interpretation Comments Supernat CSF (test Colorless (05/12/22 code = Supernat CSF) 12:30 PM) [facility] [id number] 17:30:00 Test Item Value Reference Range Interpretation Comments Nucleated Cells CSF 4 See_Comment [Automa leydi message] The (test code = Nucleated syste m which generated Cells CSF) this result tra nsmitted reference range : <=53. The reference r caleb was not used to int erpret this result as normal/abnormal . [facility] CampusUSGI MedicalLYRFUL3830-62-48 17:30:00 Test Item Value Reference Range Interpretation Comments RBC CSF (test code = 1 See_Comment [Autom ated message] The RBC CSF) system which ge nerated this result transmit leydi reference range : <=03. The reference range was not used to interpr et this result as krishna l/abnormal. [facility] CampusUSGI MedicalOTMZSD6313-41-35 17:30:00 Test Item Value Reference Range Interpretation Comments Comment CSF (test Differential not code = Comment CSF) performed on WBC count of less than 5. [facility] CampusUSGI MedicalJGOQQQ8770-70-97 17:30:00 Test Item Value Reference Range Interpretation Comments Glucose CSF (test code = Glucose CSF) 71 45-80 [facility] CampusUSGI MedicalIOTQSL6048-49-36 17:30:00 Test Item Value Reference Range Interpretation Comments Protein CSF (test code = Protein CSF) 195 15-45 [facility] CampusGram Stain Ippchb1253-14-05 17:30:00 Test Item Value Reference Range Interpretation Comments Gram Stain Report Gram Stain Performed By: (test code = Gram [facility] Stain Report) [facility] [id number] 17:30:00 Test Item Value Reference Range Interpretation Comments Culture: CSF w/Gram 48 Hour Report - No Stain (test code = Growth, Holding Culture: CSF w/Gram Stain) [place]202-10-01 10:41:00 Test Item Value Reference Range Interpretation Comments Glucose Lvl (test code = Glucose Lvl) 149 70-99 [place] 195202-10-01 10:41:00 Test Item Value Reference Range Interpretation Comments BUN (test code = BUN) 12 7-22 [place] 195202-10-01 10:41:00 Test Item Value Reference Range Interpretation Comments Creatinine Lvl (test code = Creatinine 1.37 0.50-1.40 Lvl) [facility]2022-10-01 10:41:00 Test Item Value Reference Range Interpretation Comments Sodium Lvl (test code = Sodium Lvl) 142 135-145 [facility]2022-10-01 10:41:00 Test Item Value Reference Range Interpretation Comments Potassium Lvl (test code = Potassium 3.9 3.5-5.1 Lvl) [facility]2022-10-01 10:41:00 Test Item Value Reference Range Interpretation Comments Chloride Lvl (test code = Chloride Lvl) 110 95-109 [facility]2022-10-01 10:41:00 Test Item Value Reference Range Interpretation Comments CO2 (test code = CO2) 26 24-32 [facility]2022-10-01 10:41:00 Test Item Value Reference Range Interpretation Comments Calcium Lvl (test code = Calcium Lvl) 9.3 8.5-10.5 [facility]2022-10-01 10:41:00 Test Item Value Reference Range Interpretation Comments AGAP (test code = AGAP) 9.9 10.0-20.0 [facility]2022-10-01 10:41:00 Test Item Value Reference Range Interpretation Comments eGFR (test code = eGFR) 66 [facility]2022-10-01 10:41:00 Test Item Value Reference Range Interpretation Comments Total Protein (test code = Total 7.2 6.4-8.4 Protein) [facility]2022-10-01 10:41:00 Test Item Value Reference Range Interpretation Comments Albumin Lvl (test code = Albumin Lvl) 3.5 3.5-5.0 [place] 195202-10-01 10:41:00 Test Item Value Reference Range Interpretation Comments Globulin (test code = Globulin) 3.7 2.7-4.2 [place] 195202-10-01 10:41:00 Test Item Value Reference Range Interpretation Comments A/G Ratio (test code = A/G Ratio) 0.9 1 0.7-1.6 [place] 195202-10-01 10:41:00 Test Item Value Reference Range Interpretation Comments ALANINE AMINOTRANSFERASE 32 See_Comment [A utomated message] (test code = ALANINE The sys tem which AMINOTRANSFERASE) generated this result transmitted ref erence range: <=65. Th e reference range was not used to int erpret this result as normal/abnormal . [place] 195202-10-01 10:41:00 Test Item Value Reference Range Interpretation Comments AST (test code = AST) 14 See_Comment [Auto mated message] The system which ge nerated this result transmit leydi reference range : <=37. The reference range was not used to interpr et this result as krishna l/abnormal. [place] 195202-10-01 10:41:00 Test Item Value Reference Range Interpretation Comments Alk Phos (test code = Alk Phos) 110 39-136 [place] 195202-10-01 10:41:00 Test Item Value Reference Range Interpretation Comments Bili Total (test code = Bili Total) 0.3 0.2-1.3 [place] 195202-10-01 10:41:00 Test Item Value Reference Range Interpretation Comments Bili Direct (test code no gt See_Comment [Aut omated message] The = Bili Direct) system which generated this result tra nsmitted reference range : <=0.3. The reference r caleb was not used to int erpret this result as krishna l/abnormal. [place] 195202-10-01 10:41:00 Test Item Value Reference Range Interpretation Comments Bili Indirect Unable to See_Comment [Automated (test code = Bili Calculate message] T he system Indirect) which generated this result transmitted reference range : <=1.0. The reference range was not used to interpret this result as normal/abnormal . [place] 592332-10-01 10:41:00 Test Item Value Reference Range Interpretation Comments WBC X 10x3 (test code = WBC X 10x3) 13.2 3.7-10.4 [facility] McKinneyNcqaznjAVWXYKOBRN0835-81-49 10:41:00 Test Item Value Reference Range Interpretation Comments RBC X 10x6 (test code = RBC X 10x6) 4.65 4.70-6.10 [facility] McKinneyNisewqbUBHZRZYMOB9261-14-14 10:41:00 Test Item Value Reference Range Interpretation Comments Hgb (test code = Hgb) 12.7 14.0-18.0 [place] [address]-10-01 10:41:00 Test Item Value Reference Range Interpretation Comments Hct (test code = Hct) 39.8 42.0-54.0 [place] 592332-10-01 10:41:00 Test Item Value Reference Range Interpretation Comments MCV (test code = MCV) 85.5 80.0-94.0 [place] 592332-10-01 10:41:00 Test Item Value Reference Range Interpretation Comments MCH (test code = MCH) 27.4 pg 27.0-31.0 [facility] McKinneyVxpdbhkIPNXBNHFTW0717-09-77 10:41:00 Test Item Value Reference Range Interpretation Comments MCHC (test code = MCHC) 32.0 32.0-36.0 [facility] McKinneyWqozucdGJONDSHXNC2069-28-83 10:41:00 Test Item Value Reference Range Interpretation Comments RDW (test code = RDW) 14.6 11.5-14.5 [facility] McKinneyDifcjybUMYICAPDHE4285-38-10 10:41:00 Test Item Value Reference Range Interpretation Comments Platelet (test code = Platelet) 217 133-450 [facility] McKinneyDjnqmhcLKYYCLCGAR9627-88-32 10:41:00 Test Item Value Reference Range Interpretation Comments MPV (test code = MPV) 9.4 7.4-10.4 [facility] McKinneyCuqzvtrGMTMRYDHPM6570-19-34 10:41:00 Test Item Value Reference Range Interpretation Comments PT (test code = PT) 12.4 s 12.0-14.7 [facility] McKinneyVzoilhjTWATHDDIBI1395-92-62 10:41:00 Test Item Value Reference Range Interpretation Comments INR (test code = INR) 0.93 1 0.85-1.17 [place] 592332-10-01 10:41:00 Test Item Value Reference Range Interpretation Comments PTT (test code = PTT) 27.5 s 22.9-35.8 [place] 592332-10-01 10:41:00 Test Item Value Reference Range Interpretation Comments Segs (test code = Segs) 80.2 45.0-75.0 [place] 592332-10-01 10:41:00 Test Item Value Reference Range Interpretation Comments Lymphocytes (test code = Lymphocytes) 14.3 20.0-40.0 [place] 592332-10-01 10:41:00 Test Item Value Reference Range Interpretation Comments Monocytes (test code = Monocytes) 4.8 2.0-12.0 [place] [address]-10-01 10:41:00 Test Item Value Reference Range Interpretation Comments Eosinophils (test code = 0.4 See_Comment [A utomated message] The Eosinophils) system which ge nerated this result tra nsmitted reference range : <=4.0. The reference r caleb was not used to int erpret this result as normal/abnormal . [facility] McKinneyAoucuoyURPIJDVWFN0516-19-44 10:41:00 Test Item Value Reference Range Interpretation Comments Basophils (test code = 0.3 See_Comment [Aut omated message] The Basophils) system which ge nerated this result tra nsmitted reference range : <=1.0. The reference r caleb was not used to int erpret this result as normal/abnormal . [facility] McKinneyIqvgrnnPNPKFTBZHB7290-88-28 10:41:00 Test Item Value Reference Range Interpretation Comments Neutrophils # (test code = Neutrophils 10.6 1.5-8.1 #) [place] 592332-10-01 10:41:00 Test Item Value Reference Range Interpretation Comments Lymphocytes # (test code = Lymphocytes 1.9 1.0-5.5 #) [place] [address]-10-01 10:41:00 Test Item Value Reference Range Interpretation Comments Monocytes # (test code 0.6 See_Comment [Aut omated message] The = Monocytes #) system which generated this result tra nsmitted reference range : <=0.8. The reference r caleb was not used to int erpret this result as normal/abnormal . [place] [address]-10-01 10:41:00 Test Item Value Reference Range Interpretation Comments Eosinophils # (test code 0.1 See_Comment [A utomated message] The = Eosinophils #) system [facility] JEDI MIND generated this result tra nsmitted reference range : <=0.5. The reference r caleb was not used to int erpret this result as normal/abnormal . [place] 238422-10-01 10:41:00 Test Item Value Reference Range Interpretation Comments Hep C Ab (test code = Hep C Ab) NON-REACTIVE [facility]KwrcdwfSDVFKBUKHF6919-88-89 10:41:00 Test Item Value Reference Range Interpretation Comments Hep Signal to Cut-Off (test code = Hep 0.07 1 Signal to Cut-Off) [place] 238422-10-01 10:41:00 Test Item Value Reference Range Interpretation Comments [facility] HIV 4th GEN (test Negative *NA*(05/12/22 code = CDC HIV 4th 5:41 AM) GEN) [place] 592332-02-28 21:33:00 Test Item Value Reference Range Interpretation Comments Neutrophils # (test code = Neutrophils 4.4 1.5-8.1 #) [facility] McKinneyBbjmojuTYEHZJGUQL7136-26-16 21:33:00 Test Item Value Reference Range Interpretation Comments Lymphocytes # (test code = Lymphocytes 1.1 1.0-5.5 #) [facility] McKinneyOqktamnJCMYQQQRYP2113-53-85 21:33:00 Test Item Value Reference Range Interpretation Comments Monocytes # (test code 0.2 See_Comment [Aut omated message] The = Monocytes #) system which generated this result tra nsmitted reference range : <=0.8. The reference r caleb was not used to int erpret this result as normal/abnormal . [facility] CampusVyixduqSSKDOYKFPA4592-70-15 21:33:00 Test Item Value Reference Range Interpretation Comments Eosinophils # (test code 0.2 See_Comment [A utomated message] The = Eosinophils #) system [facility] JEDI MIND generated this result tra nsmitted reference range : <=0.5. The reference r caleb was not used to int erpret this result as normal/abnormal . [facility] CampusSongFlame [id number] 21:33:00 Test Item Value Reference Range Interpretation Comments Glucose Lvl (test code = Glucose Lvl) 114 70-99 [facility] CampusSongFlame [id number] 21:33:00 Test Item Value Reference Range Interpretation Comments BUN (test code = BUN) 14 7-22 [place] 195202-02-28 21:33:00 Test Item Value Reference Range Interpretation Comments Creatinine Lvl (test code = Creatinine 1.36 0.50-1.40 Lvl) [place] 195202-02-28 21:33:00 Test Item Value Reference Range Interpretation Comments Sodium Lvl (test code = Sodium Lvl) 139 135-145 [place] 195202-02-28 21:33:00 Test Item Value Reference Range Interpretation Comments Potassium Lvl (test code = Potassium 4.6 3.5-5.1 Lvl) [place] 195202-02-28 21:33:00 Test Item Value Reference Range Interpretation Comments Chloride Lvl (test code = Chloride Lvl) 104 95-109 [place] 195202-02-28 21:33:00 Test Item Value Reference Range Interpretation Comments CO2 (test code = CO2) 29 24-32 [place] 195202-02-28 21:33:00 Test Item Value Reference Range Interpretation Comments Calcium Lvl (test code = Calcium Lvl) 9.3 8.5-10.5 [place] 195202-02-28 21:33:00 Test Item Value Reference Range Interpretation Comments AGAP (test code = AGAP) 10.6 10.0-20.0 [place] 195202-02-28 21:33:00 Test Item Value Reference Range Interpretation Comments eGFR (test code = eGFR) 64 [place] 592332-02-28 21:33:00 Test Item Value Reference Range Interpretation Comments WBC (test code = WBC) 5.9 3.7-10.4 [place] 592332-02-28 21:33:00 Test Item Value Reference Range Interpretation Comments RBC (test code = RBC) 4.85 4.70-6.10 [place] 592332-02-28 21:33:00 Test Item Value Reference Range Interpretation Comments Hgb (test code = Hgb) 13.7 14.0-18.0 [place] 592332-02-28 21:33:00 Test Item Value Reference Range Interpretation Comments Hct (test code = Hct) 41.5 42.0-54.0 [place] [address]-02-28 21:33:00 Test Item Value Reference Range Interpretation Comments MCV (test code = MCV) 85.4 80.0-94.0 [place] [address]-02-28 21:33:00 Test Item Value Reference Range Interpretation Comments MCH (test code = MCH) 28.2 pg 27.0-31.0 [place] [address]-02-28 21:33:00 Test Item Value Reference Range Interpretation Comments MCHC (test code = MCHC) 33.0 32.0-36.0 [place] 592332-02-28 21:33:00 Test Item Value Reference Range Interpretation Comments RDW (test code = RDW) 14.0 11.5-14.5 [place] [address]-02-28 21:33:00 Test Item Value Reference Range Interpretation Comments Platelet (test code = Platelet) 186 133-450 [place] 592332-02-28 21:33:00 Test Item Value Reference Range Interpretation Comments MPV (test code = MPV) 9.1 7.4-10.4 [place] 592332-02-28 21:33:00 Test Item Value Reference Range Interpretation Comments PT (test code = PT) 12.4 s 12.0-14.7 [place] 592332-02-28 21:33:00 Test Item Value Reference Range Interpretation Comments INR (test code = INR) 0.93 1 0.85-1.17 [place] 592332-02-28 21:33:00 Test Item Value Reference Range Interpretation Comments PTT (test code = PTT) 27.8 s 22.9-35.8 [place] 592332-02-28 21:33:00 Test Item Value Reference Range Interpretation Comments Segs (test code = Segs) 73.9 45.0-75.0 [place] [address]-02-28 21:33:00 Test Item Value Reference Range Interpretation Comments Lymphocytes (test code = Lymphocytes) 18.2 20.0-40.0 [place] 592332-02-28 21:33:00 Test Item Value Reference Range Interpretation Comments Monocytes (test code = Monocytes) 3.4 2.0-12.0 [place] 592332-02-28 21:33:00 Test Item Value Reference Range Interpretation Comments Eosinophils (test code = 4.2 See_Comment [A utomated message] The Eosinophils) system which ge nerated this result tra nsmitted reference range : <=4.0. The reference r caleb was not used to int erpret this result as normal/abnormal . [place] 592332-02-28 21:33:00 Test Item Value Reference Range Interpretation Comments Basophils (test code = 0.3 See_Comment [Aut omated message] The Basophils) system which ge nerated this result tra nsmitted reference range : <=1.0. The reference r caleb was not used to int erpret this result as normal/abnormal . [place] 592332-02-28 21:33:00 Test Item Value Reference Range Interpretation Comments Neutrophils # (test code = Neutrophils 4.4 1.5-8.1 #) [place] 592332-02-28 21:33:00 Test Item Value Reference Range Interpretation Comments Lymphocytes # (test code = Lymphocytes 1.1 1.0-5.5 #) [place] 592332-02-28 21:33:00 Test Item Value Reference Range Interpretation Comments Monocytes # (test code 0.2 See_Comment [Aut omated message] The = Monocytes #) system which generated this result tra nsmitted reference range : <=0.8. The reference r caleb was not used to int erpret this result as normal/abnormal . [place] 592332-02-28 21:33:00 Test Item Value Reference Range Interpretation Comments Eosinophils # (test code 0.2 See_Comment [A utomated message] The = Eosinophils #) system whic h generated this result tra nsmitted reference range : <=0.5. The reference r caleb was not used to int erpret this result as normal/abnormal . [place] 195202-02-28 21:33:00 Test Item Value Reference Range Interpretation Comments Glucose Lvl (test code = Glucose Lvl) 114 70-99 [place] 195202-02-28 21:33:00 Test Item Value Reference Range Interpretation Comments BUN (test code = BUN) 14 7-22 [place] 195202-02-28 21:33:00 Test Item Value Reference Range Interpretation Comments Creatinine Lvl (test code = Creatinine 1.36 0.50-1.40 Lvl) [place] 195202-02-28 21:33:00 Test Item Value Reference Range Interpretation Comments Sodium Lvl (test code = Sodium Lvl) 139 135-145 [place] 195202-02-28 21:33:00 Test Item Value Reference Range Interpretation Comments Potassium Lvl (test code = Potassium 4.6 3.5-5.1 Lvl) [place] 195202-02-28 21:33:00 Test Item Value Reference Range Interpretation Comments Chloride Lvl (test code = Chloride Lvl) 104 95-109 [place] 195202-02-28 21:33:00 Test Item Value Reference Range Interpretation Comments CO2 (test code = CO2) 29 24-32 [place] 195202-02-28 21:33:00 Test Item Value Reference Range Interpretation Comments Calcium Lvl (test code = Calcium Lvl) 9.3 8.5-10.5 [place] 195202-02-28 21:33:00 Test Item Value Reference Range Interpretation Comments AGAP (test code = AGAP) 10.6 10.0-20.0 [place] 195202-02-28 21:33:00 Test Item Value Reference Range Interpretation Comments eGFR (test code = eGFR) 64 [place] 592332-02-28 21:33:00 Test Item Value Reference Range Interpretation Comments WBC (test code = WBC) 5.9 3.7-10.4 [place] 592332-02-28 21:33:00 Test Item Value Reference Range Interpretation Comments RBC (test code = RBC) 4.85 4.70-6.10 [place] [address]-02-28 21:33:00 Test Item Value Reference Range Interpretation Comments Hgb (test code = Hgb) 13.7 14.0-18.0 [place] [address]-02-28 21:33:00 Test Item Value Reference Range Interpretation Comments Hct (test code = Hct) 41.5 42.0-54.0 [place] [address]-02-28 21:33:00 Test Item Value Reference Range Interpretation Comments MCV (test code = MCV) 85.4 80.0-94.0 [place] [address]-02-28 21:33:00 Test Item Value Reference Range Interpretation Comments MCH (test code = MCH) 28.2 pg 27.0-31.0 [place] 592332-02-28 21:33:00 Test Item Value Reference Range Interpretation Comments MCHC (test code = MCHC) 33.0 32.0-36.0 [place] 592332-02-28 21:33:00 Test Item Value Reference Range Interpretation Comments RDW (test code = RDW) 14.0 11.5-14.5 [place] 592332-02-28 21:33:00 Test Item Value Reference Range Interpretation Comments Platelet (test code = Platelet) 186 133-450 [place] 592332-02-28 21:33:00 Test Item Value Reference Range Interpretation Comments MPV (test code = MPV) 9.1 7.4-10.4 [place] 592332-02-28 21:33:00 Test Item Value Reference Range Interpretation Comments PT (test code = PT) 12.4 s 12.0-14.7 [place] [address]-02-28 21:33:00 Test Item Value Reference Range Interpretation Comments INR (test code = INR) 0.93 1 0.85-1.17 [place] [address]-02-28 21:33:00 Test Item Value Reference Range Interpretation Comments PTT (test code = PTT) 27.8 s 22.9-35.8 [place] [address]-02-28 21:33:00 Test Item Value Reference Range Interpretation Comments Segs (test code = Segs) 73.9 45.0-75.0 [place] 592332-02-28 21:33:00 Test Item Value Reference Range Interpretation Comments Lymphocytes (test code = Lymphocytes) 18.2 20.0-40.0 [place] 592332-02-28 21:33:00 Test Item Value Reference Range Interpretation Comments Monocytes (test code = Monocytes) 3.4 2.0-12.0 [place] 592332-02-28 21:33:00 Test Item Value Reference Range Interpretation Comments Eosinophils (test code = 4.2 See_Comment [A utomated message] The Eosinophils) system which ge nerated this result tra nsmitted reference range : <=4.0. The reference r caleb was not used to int erpret this result as normal/abnormal . [facility] [id number] 21:33:00 Test Item Value Reference Range Interpretation Comments Basophils (test code = 0.3 See_Comment [Aut omated message] The Basophils) system which ge nerated this result tra nsmitted reference range : <=1.0. The reference r caleb was not used to int erpret this result as normal/abnormal . [facility]2022-02-28 20:31:00 Test Item Value Reference Range Interpretation Comments Glucose CSF (test code = Glucose CSF) 77 45-80 [facility]2022-02-28 20:31:00 Test Item Value Reference Range Interpretation Comments Protein CSF (test code = Protein CSF) 33 15-45 [facility]2022-02-28 20:31:00 Test Item Value Reference Range Interpretation Comments Tube Num CSF (test xxxxxxx (10/09/21 2:31 code = Tube Num CSF) PM) [facility]2022-02-28 20:31:00 Test Item Value Reference Range Interpretation Comments Color CSF (test code Colorless (10/09/21 2:31 = Color CSF) PM) [facility]2022-02-28 20:31:00 Test Item Value Reference Range Interpretation Comments Clarity CSF (test code = Clear (10/09/21 2:31 Clarity CSF) PM) [place]88792-02-28 20:31:00 Test Item Value Reference Range Interpretation Comments Supernat CSF (test Colorless (10/09/21 2:31 code = Supernat CSF) PM) [place] 088792-02-28 20:31:00 Test Item Value Reference Range Interpretation Comments Nucleated Cells CSF 9 See_Comment [Automa leydi message] The (test code = Nucleated syste m which generated Cells CSF) this result tra nsmitted reference range : <=53. The reference r caleb was not used to int erpret this result as normal/abnormal . [facility]2022-02-28 20:31:00 Test Item Value Reference Range Interpretation Comments RBC CSF (test code = 280 See_Comment [Autom ated message] The RBC CSF) system which ge nerated this result transmit leydi reference range : <=03. The reference range was not used to interpr et this result as krishna l/abnormal. [facility]2022-02-28 20:31:00 Test Item Value Reference Range Interpretation Comments Neutrophils CSF (test 64 See_Comment [Auto mated message] The code = Neutrophils CSF) syst em which generated this result tra nsmitted reference range : <=6. The reference r caleb was not used to int erpret this result as normal/abnormal . [facility] [id number] 20:31:00 Test Item Value Reference Range Interpretation Comments Lymph CSF (test code = Lymph CSF) 30 40-80 [facility]2022-02-28 20:31:00 Test Item Value Reference Range Interpretation Comments Monocyte CSF (test code = Monocyte CSF) 6 15-45 [facility] CampusCulture: [id number] 20:31:00 Test Item Value Reference Range Interpretation Comments Culture: Anaerobic No Anaerobes Isolated (test code = Culture: After 3 Days Anaerobic) [facility] CampusGram Stain [id number] 20:31:00 Test Item Value Reference Range Interpretation Comments Gram Stain Report Few Wbc'S; No Organisms (test code = Gram Seen Stain Report) [facility] CampusCulture: CSF w/Gram [id number] 20:31:00 Test Item Value Reference Range Interpretation Comments Culture: CSF w/Gram 72 Hour Report - No Stain (test code = Growth, Holding Culture: CSF w/Gram Stain) [facility]2022-02-28 20:31:00 Test Item Value Reference Range Interpretation Comments Glucose CSF (test code = Glucose CSF) 77 45-80 [facility]2022-02-28 20:31:00 Test Item Value Reference Range Interpretation Comments Protein CSF (test code = Protein CSF) 33 15-45 [facility]2022-02-28 20:31:00 Test Item Value Reference Range Interpretation Comments Tube Num CSF (test xxxxxxx (10/09/21 2:31 code = Tube Num CSF) PM) [facility]2022-02-28 20:31:00 Test Item Value Reference Range Interpretation Comments Color CSF (test code Colorless (10/09/21 2:31 = Color CSF) PM) [facility]2022-02-28 20:31:00 Test Item Value Reference Range Interpretation Comments Clarity CSF (test code = Clear (10/09/21 2:31 Clarity CSF) PM) [facility]2022-02-28 20:31:00 Test Item Value Reference Range Interpretation Comments Supernat CSF (test Colorless (10/09/21 2:31 code = Supernat CSF) PM) [facility]2022-02-28 20:31:00 Test Item Value Reference Range Interpretation Comments Nucleated Cells CSF 9 See_Comment [Automa leydi message] The (test code = Nucleated syste m which generated Cells CSF) this result tra nsmitted reference range : <=53. The reference r caleb was not used to int erpret this result as normal/abnormal . [facility]2022-02-28 20:31:00 Test Item Value Reference Range Interpretation Comments RBC CSF (test code = 280 See_Comment [Autom ated message] The RBC CSF) system which ge nerated this result transmit leydi reference range : <=03. The reference range was not used to interpr et this result as krishna l/abnormal. [facility]2022-02-28 20:31:00 Test Item Value Reference Range Interpretation Comments Neutrophils CSF (test 64 See_Comment [Auto mated message] The code = Neutrophils CSF) syst em which generated this result tra nsmitted reference range : <=6. The reference r caleb was not used to int erpret this result as normal/abnormal . [facility]2022-02-28 20:31:00 Test Item Value Reference Range Interpretation Comments Lymph CSF (test code = Lymph CSF) 30 40-80 [facility]2022-02-28 20:31:00 Test Item Value Reference Range Interpretation Comments Monocyte CSF (test code = Monocyte CSF) 6 15-45 [facility] CampusCulture: [id number] 20:31:00 Test Item Value Reference Range Interpretation Comments Culture: Anaerobic No Anaerobes Isolated (test code = Culture: After 3 Days Anaerobic) [facility] CampusGram Stain [id number] 20:31:00 Test Item Value Reference Range Interpretation Comments Gram Stain Report Few Wbc'S; No Organisms (test code = Gram Seen Stain Report) [facility] CampusCulture: CSF w/Gram [id number] 20:31:00 Test Item Value Reference Range Interpretation Comments Culture: CSF w/Gram 72 Hour Report - No Stain (test code = Growth, Holding Culture: CSF w/Gram Stain) [place]202-02-28 08:57:00 Test Item Value Reference Range Interpretation Comments Glucose Lvl (test code = Glucose Lvl) 109 70-99 [place] 195202-02-28 08:57:00 Test Item Value Reference Range Interpretation Comments BUN (test code = BUN) 17 7-22 [place] 195202-02-28 08:57:00 Test Item Value Reference Range Interpretation Comments Creatinine Lvl (test code = Creatinine 1.28 0.50-1.40 Lvl) [place] 195202-02-28 08:57:00 Test Item Value Reference Range Interpretation Comments Sodium Lvl (test code = Sodium Lvl) 140 135-145 [place] 195202-02-28 08:57:00 Test Item Value Reference Range Interpretation Comments Potassium Lvl (test code = Potassium 3.9 3.5-5.1 Lvl) [place] 195202-02-28 08:57:00 Test Item Value Reference Range Interpretation Comments Chloride Lvl (test code = Chloride Lvl) 108 95-109 [place] 195202-02-28 08:57:00 Test Item Value Reference Range Interpretation Comments CO2 (test code = CO2) 27 24-32 [place] 195202-02-28 08:57:00 Test Item Value Reference Range Interpretation Comments Calcium Lvl (test code = Calcium Lvl) 9.5 8.5-10.5 [place] 195202-02-28 08:57:00 Test Item Value Reference Range Interpretation Comments AGAP (test code = AGAP) 8.9 10.0-20.0 [place] 195202-02-28 08:57:00 Test Item Value Reference Range Interpretation Comments eGFR (test code = eGFR) 69 [place] [address]-02-28 08:57:00 Test Item Value Reference Range Interpretation Comments WBC (test code = WBC) 8.5 3.7-10.4 [place] [address]-02-28 08:57:00 Test Item Value Reference Range Interpretation Comments RBC (test code = RBC) 4.69 4.70-6.10 [place] [address]-02-28 08:57:00 Test Item Value Reference Range Interpretation Comments Hgb (test code = Hgb) 13.3 14.0-18.0 [id number] 08:57:00 Test Item Value Reference Range Interpretation Comments Hct (test code = Hct) 40.4 42.0-54.0 [facility] [id number] 08:57:00 Test Item Value Reference Range Interpretation Comments MCV (test code = MCV) 86.1 80.0-94.0 [place]2332-02-28 08:57:00 Test Item Value Reference Range Interpretation Comments MCH (test code = MCH) 28.3 pg 27.0-31.0 [facility] M[id number] 08:57:00 Test Item Value Reference Range Interpretation Comments MCHC (test code = MCHC) 32.9 32.0-36.0 [facility] M[id number] 08:57:00 Test Item Value Reference Range Interpretation Comments RDW (test code = RDW) 14.1 11.5-14.5 [place]2332-02-28 08:57:00 Test Item Value Reference Range Interpretation Comments Platelet (test code = Platelet) 192 133-450 [facility] M[id number] 08:57:00 Test Item Value Reference Range Interpretation Comments MPV (test code = MPV) 9.2 7.4-10.4 [place]2332-02-28 08:57:00 Test Item Value Reference Range Interpretation Comments R-time (test code = R-time) 6.0 min 5.0-10.0 [place]2332-02-28 08:57:00 Test Item Value Reference Range Interpretation Comments K-time (test code = K-time) 1.4 min 1.0-3.0 [place]2332-02-28 08:57:00 Test Item Value Reference Range Interpretation Comments Angle (test code = Angle) 69.7 degrees 53.0-72.0 [place] 592332-02-28 08:57:00 Test Item Value Reference Range Interpretation Comments Max Amp (test code = Max Amp) 66.3 mm 50.0-70.0 [place] 592332-02-28 08:57:00 Test Item Value Reference Range Interpretation Comments G-value (test code = G-value) 9.8 4.5-11.0 [place] 592332-02-28 08:57:00 Test Item Value Reference Range Interpretation Comments Ly30 (test code = 0.6 See_Comment [Automate d message] The Ly30) system which ge nerated this result transmit leydi reference range : <=7.5. The reference range was not used to interpr et this result as krishna l/abnormal. [place] [address]-02-28 08:57:00 Test Item Value Reference Range Interpretation Comments Coag Index (test code 1.2 1 See_Comment [Auto mated message] The = Coag Index) system which g enerated this result transmit leydi reference range : <=3.0. The reference range was not used to interpr et this result as krishna l/abnormal. [place]2332-02-28 08:57:00 Test Item Value Reference Range Interpretation Comments TEG Data (test code = See Note (10/09/21 2:57 TEG Data) AM) [place] [address]-02-28 08:57:00 Test Item Value Reference Range Interpretation Comments PT (test code = PT) 12.1 s 12.0-14.7 [place] [address]-02-28 08:57:00 Test Item Value Reference Range Interpretation Comments INR (test code = INR) 0.90 1 0.85-1.17 [place] [address]-02-28 08:57:00 Test Item Value Reference Range Interpretation Comments PTT (test code = PTT) 27.6 s 22.9-35.8 [place] [address]-02-28 08:57:00 Test Item Value Reference Range Interpretation Comments Segs (test code = Segs) 52.0 45.0-75.0 [place] [address]-02-28 08:57:00 Test Item Value Reference Range Interpretation Comments Lymphocytes (test code = Lymphocytes) 33.8 20.0-40.0 [place] [address]-02-28 08:57:00 Test Item Value Reference Range Interpretation Comments Monocytes (test code = Monocytes) 8.0 2.0-12.0 [place] [address]-02-28 08:57:00 Test Item Value Reference Range Interpretation Comments Eosinophils (test code = 5.8 See_Comment [A utomated message] The Eosinophils) system which ge nerated this result tra nsmitted reference range : <=4.0. The reference r caleb was not used to int erpret this result as normal/abnormal . [facility] [id number] 08:57:00 Test Item Value Reference Range Interpretation Comments Basophils (test code = 0.4 See_Comment [Aut omated message] The Basophils) system which ge nerated this result tra nsmitted reference range : <=1.0. The reference r caleb was not used to int erpret this result as normal/abnormal . [facility] M[id number] 08:57:00 Test Item Value Reference Range Interpretation Comments Neutrophils # (test code = Neutrophils 4.4 1.5-8.1 #) [place]2332-02-28 08:57:00 Test Item Value Reference Range Interpretation Comments Lymphocytes # (test code = Lymphocytes 2.9 1.0-5.5 #) [place] 592332-02-28 08:57:00 Test Item Value Reference Range Interpretation Comments Monocytes # (test code 0.7 See_Comment [Aut omated message] The = Monocytes #) system which generated this result tra nsmitted reference range : <=0.8. The reference r caleb was not used to int erpret this result as normal/abnormal . [facility] M[id number] 08:57:00 Test Item Value Reference Range Interpretation Comments Eosinophils # (test code 0.5 See_Comment [A utomated message] The = Eosinophils #) system whic h generated this result tra nsmitted reference range : <=0.5. The reference r caleb was not used to int erpret this result as normal/abnormal . [facility] M[id number] 08:57:00 Test Item Value Reference Range Interpretation Comments TEG Interp (test Thrombelastograph results code = TEG are within reference ranges. Interp) Note that TEG does not show effect of NSAIDs or P2Y12 inhibitors. CPT:34487 [place] 195202-02-28 08:57:00 Test Item Value Reference Range Interpretation Comments Glucose Lvl (test code = Glucose Lvl) 109 70-99 [facility] CampusWirelessGate [id number] 08:57:00 Test Item Value Reference Range Interpretation Comments BUN (test code = BUN) 17 7-22 [place] 195202-02-28 08:57:00 Test Item Value Reference Range Interpretation Comments Creatinine Lvl (test code = Creatinine 1.28 0.50-1.40 Lvl) [place] 195202-02-28 08:57:00 Test Item Value Reference Range Interpretation Comments Sodium Lvl (test code = Sodium Lvl) 140 135-145 [place] 195202-02-28 08:57:00 Test Item Value Reference Range Interpretation Comments Potassium Lvl (test code = Potassium 3.9 3.5-5.1 Lvl) [place] 195202-02-28 08:57:00 Test Item Value Reference Range Interpretation Comments Chloride Lvl (test code = Chloride Lvl) 108 95-109 [place] 195202-02-28 08:57:00 Test Item Value Reference Range Interpretation Comments CO2 (test code = CO2) 27 24-32 [place] 195202-02-28 08:57:00 Test Item Value Reference Range Interpretation Comments Calcium Lvl (test code = Calcium Lvl) 9.5 8.5-10.5 [place] 195202-02-28 08:57:00 Test Item Value Reference Range Interpretation Comments AGAP (test code = AGAP) 8.9 10.0-20.0 [place] 195202-02-28 08:57:00 Test Item Value Reference Range Interpretation Comments eGFR (test code = eGFR) 69 [place]2332-02-28 08:57:00 Test Item Value Reference Range Interpretation Comments WBC (test code = WBC) 8.5 3.7-10.4 [place] [address]-02-28 08:57:00 Test Item Value Reference Range Interpretation Comments RBC (test code = RBC) 4.69 4.70-6.10 [place] [address]-02-28 08:57:00 Test Item Value Reference Range Interpretation Comments Hgb (test code = Hgb) 13.3 14.0-18.0 [place] [address]-02-28 08:57:00 Test Item Value Reference Range Interpretation Comments Hct (test code = Hct) 40.4 42.0-54.0 [address]02-28 08:57:00 Test Item Value Reference Range Interpretation Comments MCV (test code = MCV) 86.1 80.0-94.0 [place]2332-02-28 08:57:00 Test Item Value Reference Range Interpretation Comments MCH (test code = MCH) 28.3 pg 27.0-31.0 [place] 592332-02-28 08:57:00 Test Item Value Reference Range Interpretation Comments MCHC (test code = MCHC) 32.9 32.0-36.0 [place] 592332-02-28 08:57:00 Test Item Value Reference Range Interpretation Comments RDW (test code = RDW) 14.1 11.5-14.5 [place] 592332-02-28 08:57:00 Test Item Value Reference Range Interpretation Comments Platelet (test code = Platelet) 192 133-450 [place] 592332-02-28 08:57:00 Test Item Value Reference Range Interpretation Comments MPV (test code = MPV) 9.2 7.4-10.4 [place] 592332-02-28 08:57:00 Test Item Value Reference Range Interpretation Comments R-time (test code = R-time) 6.0 min 5.0-10.0 [place] [address]-02-28 08:57:00 Test Item Value Reference Range Interpretation Comments K-time (test code = K-time) 1.4 min 1.0-3.0 [place] 592332-02-28 08:57:00 Test Item Value Reference Range Interpretation Comments Angle (test code = Angle) 69.7 degrees 53.0-72.0 [place] 592332-02-28 08:57:00 Test Item Value Reference Range Interpretation Comments Max Amp (test code = Max Amp) 66.3 mm 50.0-70.0 [place] 592332-02-28 08:57:00 Test Item Value Reference Range Interpretation Comments G-value (test code = G-value) 9.8 4.5-11.0 [place] 592332-02-28 08:57:00 Test Item Value Reference Range Interpretation Comments Ly30 (test code = 0.6 See_Comment [Automate d message] The Ly30) system which ge nerated this result transmit leydi reference range : <=7.5. The reference range was not used to interpr et this result as krishna l/abnormal. [place]2332-02-28 08:57:00 Test Item Value Reference Range Interpretation Comments Coag Index (test code 1.2 1 See_Comment [Auto mated message] The = Coag Index) system which g enerated this result transmit leydi reference range : <=3.0. The reference range was not used to interpr et this result as krishna l/abnormal. [place] 592332-02-28 08:57:00 Test Item Value Reference Range Interpretation Comments TEG Data (test code = See Note (10/09/21 2:57 TEG Data) AM) [place] [address]-02-28 08:57:00 Test Item Value Reference Range Interpretation Comments PT (test code = PT) 12.1 s 12.0-14.7 [place] [address]-02-28 08:57:00 Test Item Value Reference Range Interpretation Comments INR (test code = INR) 0.90 1 0.85-1.17 [place] [address]-02-28 08:57:00 Test Item Value Reference Range Interpretation Comments PTT (test code = PTT) 27.6 s 22.9-35.8 [place] [address]-02-28 08:57:00 Test Item Value Reference Range Interpretation Comments Segs (test code = Segs) 52.0 45.0-75.0 [place] [address]-02-28 08:57:00 Test Item Value Reference Range Interpretation Comments Lymphocytes (test code = Lymphocytes) 33.8 20.0-40.0 [place] [address]-02-28 08:57:00 Test Item Value Reference Range Interpretation Comments Monocytes (test code = Monocytes) 8.0 2.0-12.0 [place] [address]-02-28 08:57:00 Test Item Value Reference Range Interpretation Comments Eosinophils (test code = 5.8 See_Comment [A utomated message] The Eosinophils) system which ge nerated this result tra nsmitted reference range : <=4.0. The reference r claeb was not used to int erpret this result as normal/abnormal . [place] 592332-02-28 08:57:00 Test Item Value Reference Range Interpretation Comments Basophils (test code = 0.4 See_Comment [Aut omated message] The Basophils) system which ge nerated this result tra nsmitted reference range : <=1.0. The reference r caleb was not used to int erpret this result as normal/abnormal . [place] 592332-02-28 08:57:00 Test Item Value Reference Range Interpretation Comments Neutrophils # (test code = Neutrophils 4.4 1.5-8.1 #) [place] 592332-02-28 08:57:00 Test Item Value Reference Range Interpretation Comments Lymphocytes # (test code = Lymphocytes 2.9 1.0-5.5 #) [place] [address]-02-28 08:57:00 Test Item Value Reference Range Interpretation Comments Monocytes # (test code 0.7 See_Comment [Aut omated message] The = Monocytes #) system which generated this result tra nsmitted reference range : <=0.8. The reference r caleb was not used to int erpret this result as normal/abnormal . [place] 592332-02-28 08:57:00 Test Item Value Reference Range Interpretation Comments Eosinophils # (test code 0.5 See_Comment [A utomated message] The = Eosinophils #) system whic h generated this result tra nsmitted reference range : <=0.5. The reference r caleb was not used to int erpret this result as normal/abnormal . [place] 592332-02-28 08:57:00 Test Item Value Reference Range Interpretation Comments TEG Interp (test Thrombelastograph results code = TEG are within reference ranges. Interp) Note that TEG does not show effect of NSAIDs or P2Y12 inhibitors. CPT:[id number] [facility]2022-02-28 02:07:26 Test Item Value Reference Range Interpretation Comments Glucose Lvl (test code = Glucose Lvl) 95 70-99 [place] 195202-02-28 02:07:26 Test Item Value Reference Range Interpretation Comments BUN (test code = BUN) 13 7-22 [place] 195202-02-28 02:07:26 Test Item Value Reference Range Interpretation Comments Creatinine Lvl (test code = Creatinine 1.24 0.50-1.40 Lvl) [place] 195202-02-28 02:07:26 Test Item Value Reference Range Interpretation Comments Sodium Lvl (test code = Sodium Lvl) 140 135-145 [place] 195202-02-28 02:07:26 Test Item Value Reference Range Interpretation Comments Potassium Lvl (test code = Potassium 3.7 3.5-5.1 Lvl) [place] 195202-02-28 02:07:26 Test Item Value Reference Range Interpretation Comments Chloride Lvl (test code = Chloride Lvl) 106 95-109 [place] 195202-02-28 02:07:26 Test Item Value Reference Range Interpretation Comments CO2 (test code = CO2) 30 24-32 [place] 195202-02-28 02:07:26 Test Item Value Reference Range Interpretation Comments Calcium Lvl (test code = Calcium Lvl) 9.5 8.5-10.5 [place] 195202-02-28 02:07:26 Test Item Value Reference Range Interpretation Comments AGAP (test code = AGAP) 7.7 10.0-20.0 [place] 195202-02-28 02:07:26 Test Item Value Reference Range Interpretation Comments eGFR (test code = eGFR) 72 [place] 592332-02-28 02:07:26 Test Item Value Reference Range Interpretation Comments WBC X 10x3 (test code = WBC X 10x3) 7.4 3.7-10.4 [place] 592332-02-28 02:07:26 Test Item Value Reference Range Interpretation Comments RBC X 10x6 (test code = RBC X 10x6) 5.06 4.70-6.10 [place] [address]-02-28 02:07:26 Test Item Value Reference Range Interpretation Comments Hgb (test code = Hgb) 14.0 14.0-18.0 [place] [address]-02-28 02:07:26 Test Item Value Reference Range Interpretation Comments Hct (test code = Hct) 43.5 42.0-54.0 [place] [address]-02-28 02:07:26 Test Item Value Reference Range Interpretation Comments MCV (test code = MCV) 85.9 80.0-94.0 [place] [address]-02-28 02:07:26 Test Item Value Reference Range Interpretation Comments MCH (test code = MCH) 27.7 pg 27.0-31.0 [place] 592332-02-28 02:07:26 Test Item Value Reference Range Interpretation Comments MCHC (test code = MCHC) 32.3 32.0-36.0 [place] 592332-02-28 02:07:26 Test Item Value Reference Range Interpretation Comments RDW (test code = RDW) 13.9 11.5-14.5 [place] 592332-02-28 02:07:26 Test Item Value Reference Range Interpretation Comments Platelet (test code = Platelet) 192 133-450 [place] 592332-02-28 02:07:26 Test Item Value Reference Range Interpretation Comments MPV (test code = MPV) 9.1 7.4-10.4 [place] 592332-02-28 02:07:26 Test Item Value Reference Range Interpretation Comments ACT (TEG) Rapid (test code = ACT (TEG) 128 s 86-118 Rapid) [place] 592332-02-28 02:07:26 Test Item Value Reference Range Interpretation Comments Split Point Rapid (test code = Split 0.7 min Point Rapid) [place] 592332-02-28 02:07:26 Test Item Value Reference Range Interpretation Comments R-time Rapid (test code = R-time 0.8 min 0.4-0.7 Rapid) [place] 592332-02-28 02:07:26 Test Item Value Reference Range Interpretation Comments K-time Rapid (test code = K-time 1.1 min 0.6-2.3 Rapid) [place] 592332-02-28 02:07:26 Test Item Value Reference Range Interpretation Comments Angle Rapid (test code = Angle 76 degrees 64-80 Rapid) [place] 592332-02-28 02:07:26 Test Item Value Reference Range Interpretation Comments Max Amplitude Rapid (test code = Max 71 mm 52-71 Amplitude Rapid) [place] 592332-02-28 02:07:26 Test Item Value Reference Range Interpretation Comments G-value Rapid (test code = G-value 12.1 5.0-11.6 Rapid) [place] 592332-02-28 02:07:26 Test Item Value Reference Range Interpretation Comments Estimated % Lysis Rapid 0.8 See_Comment [Au tomated message] The (test code = Estimated syste m which generated % Lysis Rapid) this result t ransmitted reference range : <=7.5. The reference r caleb was not used to int erpret this result as normal/abnormal . [id number] 02:07:26 Test Item Value Reference Range Interpretation Comments PT (test code = PT) 12.5 s 12.0-14.7 [place] 592332-02-28 02:07:26 Test Item Value Reference Range Interpretation Comments INR (test code = INR) 0.94 1 0.85-1.17 [place] 592332-02-28 02:07:26 Test Item Value Reference Range Interpretation Comments PTT (test code = PTT) 29.6 s 22.9-35.8 [place] 592332-02-28 02:07:26 Test Item Value Reference Range Interpretation Comments Segs (test code = Segs) 57.2 45.0-75.0 [place] 592332-02-28 02:07:26 Test Item Value Reference Range Interpretation Comments Lymphocytes (test code = Lymphocytes) 30.9 20.0-40.0 [place] 592332-02-28 02:07:26 Test Item Value Reference Range Interpretation Comments Monocytes (test code = Monocytes) 5.6 2.0-12.0 [facility]cdrdorJCMDDEWYUV4753-61-58 02:07:26 Test Item Value Reference Range Interpretation Comments Eosinophils (test code = 5.6 See_Comment [A utomated message] The Eosinophils) system which ge nerated this result tra nsmitted reference range : <=4.0. The reference r caleb was not used to int erpret this result as normal/abnormal . [place] [address]-02-28 02:07:26 Test Item Value Reference Range Interpretation Comments Basophils (test code = 0.7 See_Comment [Aut omated message] The Basophils) system which ge nerated this result tra nsmitted reference range : <=1.0. The reference r caleb was not used to int erpret this result as normal/abnormal . [place] 592332-02-28 02:07:26 Test Item Value Reference Range Interpretation Comments Neutrophils # (test code = Neutrophils 4.3 1.5-8.1 #) [place] 592332-02-28 02:07:26 Test Item Value Reference Range Interpretation Comments Lymphocytes # (test code = Lymphocytes 2.3 1.0-5.5 #) [place] [address]-02-28 02:07:26 Test Item Value Reference Range Interpretation Comments Monocytes # (test code 0.4 See_Comment [Aut omated message] The = Monocytes #) system which generated this result tra nsmitted reference range : <=0.8. The reference r caleb was not used to int erpret this result as normal/abnormal . [place] [address]-02-28 02:07:26 Test Item Value Reference Range Interpretation Comments Eosinophils # (test code 0.4 See_Comment [A utomated message] The = Eosinophils #) system whic h generated this result tra nsmitted reference range : <=0.5. The reference r caleb was not used to int erpret this result as normal/abnormal . [facility]fqkxyxZIBRHRZDYN2986-60-86 02:07:26 Test Item Value Reference Range Interpretation Comments Coronavirus (COVID-19) Not Detected (10/08/21 LIZBETH (test code = 8:07 PM) Coronavirus (COVID-19) LIZBETH) [place] 195202-02-28 02:07:26 Test Item Value Reference Range Interpretation Comments Glucose Lvl (test code = Glucose Lvl) 95 70-99 [place] 195202-02-28 02:07:26 Test Item Value Reference Range Interpretation Comments BUN (test code = BUN) 13 7-22 [place] 195202-02-28 02:07:26 Test Item Value Reference Range Interpretation Comments Creatinine Lvl (test code = Creatinine 1.24 0.50-1.40 Lvl) [place] 195202-02-28 02:07:26 Test Item Value Reference Range Interpretation Comments Sodium Lvl (test code = Sodium Lvl) 140 135-145 [place] 195202-02-28 02:07:26 Test Item Value Reference Range Interpretation Comments Potassium Lvl (test code = Potassium 3.7 3.5-5.1 Lvl) [place] 195202-02-28 02:07:26 Test Item Value Reference Range Interpretation Comments Chloride Lvl (test code = Chloride Lvl) 106 95-109 [place] 195202-02-28 02:07:26 Test Item Value Reference Range Interpretation Comments CO2 (test code = CO2) 30 24-32 [place] 195202-02-28 02:07:26 Test Item Value Reference Range Interpretation Comments Calcium Lvl (test code = Calcium Lvl) 9.5 8.5-10.5 [place] 195202-02-28 02:07:26 Test Item Value Reference Range Interpretation Comments AGAP (test code = AGAP) 7.7 10.0-20.0 [place] 195202-02-28 02:07:26 Test Item Value Reference Range Interpretation Comments eGFR (test code = eGFR) 72 [place] 592332-02-28 02:07:26 Test Item Value Reference Range Interpretation Comments WBC X 10x3 (test code = WBC X 10x3) 7.4 3.7-10.4 [place] 592332-02-28 02:07:26 Test Item Value Reference Range Interpretation Comments RBC X 10x6 (test code = RBC X 10x6) 5.06 4.70-6.10 [place] 592332-02-28 02:07:26 Test Item Value Reference Range Interpretation Comments Hgb (test code = Hgb) 14.0 14.0-18.0 [place] 592332-02-28 02:07:26 Test Item Value Reference Range Interpretation Comments Hct (test code = Hct) 43.5 42.0-54.0 [place] 592332-02-28 02:07:26 Test Item Value Reference Range Interpretation Comments MCV (test code = MCV) 85.9 80.0-94.0 [place] [address]-02-28 02:07:26 Test Item Value Reference Range Interpretation Comments MCH (test code = MCH) 27.7 pg 27.0-31.0 [place] 592332-02-28 02:07:26 Test Item Value Reference Range Interpretation Comments MCHC (test code = MCHC) 32.3 32.0-36.0 [place] [address]-02-28 02:07:26 Test Item Value Reference Range Interpretation Comments RDW (test code = RDW) 13.9 11.5-14.5 [place] 592332-02-28 02:07:26 Test Item Value Reference Range Interpretation Comments Platelet (test code = Platelet) 192 133-450 [place] 592332-02-28 02:07:26 Test Item Value Reference Range Interpretation Comments MPV (test code = MPV) 9.1 7.4-10.4 [place] [address]-02-28 02:07:26 Test Item Value Reference Range Interpretation Comments ACT (TEG) Rapid (test code = ACT (TEG) 128 s 86-118 Rapid) [place] 592332-02-28 02:07:26 Test Item Value Reference Range Interpretation Comments Split Point Rapid (test code = Split 0.7 min Point Rapid) [place] 592332-02-28 02:07:26 Test Item Value Reference Range Interpretation Comments R-time Rapid (test code = R-time 0.8 min 0.4-0.7 Rapid) [place] 592332-02-28 02:07:26 Test Item Value Reference Range Interpretation Comments K-time Rapid (test code = K-time 1.1 min 0.6-2.3 Rapid) [place] 592332-02-28 02:07:26 Test Item Value Reference Range Interpretation Comments Angle Rapid (test code = Angle 76 degrees 64-80 Rapid) [place] 592332-02-28 02:07:26 Test Item Value Reference Range Interpretation Comments Max Amplitude Rapid (test code = Max 71 mm 52-71 Amplitude Rapid) [place] 592332-02-28 02:07:26 Test Item Value Reference Range Interpretation Comments G-value Rapid (test code = G-value 12.1 5.0-11.6 Rapid) [place] 592332-02-28 02:07:26 Test Item Value Reference Range Interpretation Comments Estimated % Lysis Rapid 0.8 See_Comment [Au tomated message] The (test code = Estimated syste m which generated % Lysis Rapid) this result t ransmitted reference range : <=7.5. The reference r caleb was not used to int erpret this result as normal/abnormal . [place] 592332-02-28 02:07:26 Test Item Value Reference Range Interpretation Comments PT (test code = PT) 12.5 s 12.0-14.7 [place] 592332-02-28 02:07:26 Test Item Value Reference Range Interpretation Comments INR (test code = INR) 0.94 1 0.85-1.17 [place] 592332-02-28 02:07:26 Test Item Value Reference Range Interpretation Comments PTT (test code = PTT) 29.6 s 22.9-35.8 [place] [address]-02-28 02:07:26 Test Item Value Reference Range Interpretation Comments Segs (test code = Segs) 57.2 45.0-75.0 [place] 592332-02-28 02:07:26 Test Item Value Reference Range Interpretation Comments Lymphocytes (test code = Lymphocytes) 30.9 20.0-40.0 [place] 592332-02-28 02:07:26 Test Item Value Reference Range Interpretation Comments Monocytes (test code = Monocytes) 5.6 2.0-12.0 [place] 592332-02-28 02:07:26 Test Item Value Reference Range Interpretation Comments Eosinophils (test code = 5.6 See_Comment [A utomated message] The Eosinophils) system which ge nerated this result tra nsmitted reference range : <=4.0. The reference r caleb was not used to int erpret this result as normal/abnormal . [place] 592332-02-28 02:07:26 Test Item Value Reference Range Interpretation Comments Basophils (test code = 0.7 See_Comment [Aut omated message] The Basophils) system which ge nerated this result tra nsmitted reference range : <=1.0. The reference r caleb was not used to int erpret this result as normal/abnormal . [place] 592332-02-28 02:07:26 Test Item Value Reference Range Interpretation Comments Neutrophils # (test code = Neutrophils 4.3 1.5-8.1 #) [place] 592332-02-28 02:07:26 Test Item Value Reference Range Interpretation Comments Lymphocytes # (test code = Lymphocytes 2.3 1.0-5.5 #) [place] 592332-02-28 02:07:26 Test Item Value Reference Range Interpretation Comments Monocytes # (test code 0.4 See_Comment [Aut omated message] The = Monocytes #) system which generated this result tra nsmitted reference range : <=0.8. The reference r caleb was not used to int erpret this result as normal/abnormal . [facility] CampusZserwotAPIQXWRQAN2470-35-76 02:07:26 Test Item Value Reference Range Interpretation Comments Eosinophils # (test code 0.4 See_Comment [A utomated message] The = Eosinophils #) system whic h generated this result tra nsmitted reference range : <=0.5. The reference r caleb was not used to int erpret this result as normal/abnormal . [facility]hrmzfzRCABFPZHXT1292-32-22 02:07:26 Test Item Value Reference Range Interpretation Comments Coronavirus (COVID-19) Not Detected (10/08/21 LIZBETH (test code = 8:07 PM) Coronavirus (COVID-19) LIZBETH) [facility] [employer] [id number] 01:55:00 Test Item Value Reference Range Interpretation Comments ABO/Rh (test code = ABO/Rh) O POS [facility] [id number] 01:55:00 Test Item Value Reference Range Interpretation Comments Antibody Scrn (test Negative (10/08/21 7:55 code = Antibody Scrn) PM) [facility] [employer] [id number] 01:55:00 Test Item Value Reference Range Interpretation Comments ABO/Rh (test code = ABO/Rh) O POS [facility] [id number] 01:55:00 Test Item Value Reference Range Interpretation Comments Antibody Scrn (test Negative (10/08/21 7:55 code = Antibody Scrn) PM) [facility]2022-02-22 19:46:00 Test Item Value Reference Range Interpretation Comments Glucose Lvl (test code = Glucose Lvl) 133 70-99 [facility] [address]2022-02-22 19:46:00 Test Item Value Reference Range Interpretation Comments BUN (test code = BUN) 14 7-22 [facility] [address]2022-02-22 19:46:00 Test Item Value Reference Range Interpretation Comments Creatinine Lvl (test code = Creatinine 1.22 0.50-1.40 Lvl) [facility] [address]2022-02-22 19:46:00 Test Item Value Reference Range Interpretation Comments Sodium Lvl (test code = Sodium Lvl) 138 135-145 [place] 195202-02-22 19:46:00 Test Item Value Reference Range Interpretation Comments Potassium Lvl (test code = Potassium 4.1 3.5-5.1 Lvl) [place] 195202-02-22 19:46:00 Test Item Value Reference Range Interpretation Comments Chloride Lvl (test code = Chloride Lvl) 108 95-109 [place] 195202-02-22 19:46:00 Test Item Value Reference Range Interpretation Comments CO2 (test code = CO2) 26 24-32 [place] 195202-02-22 19:46:00 Test Item Value Reference Range Interpretation Comments Calcium Lvl (test code = Calcium Lvl) 8.6 8.5-10.5 [place] 195202-02-22 19:46:00 Test Item Value Reference Range Interpretation Comments AGAP (test code = AGAP) 8.1 10.0-20.0 [place] 195202-02-22 19:46:00 Test Item Value Reference Range Interpretation Comments eGFR (test code = eGFR) 73 [place] 592332-02-22 19:46:00 Test Item Value Reference Range Interpretation Comments WBC (test code = WBC) 6.2 3.7-10.4 [place] 592332-02-22 19:46:00 Test Item Value Reference Range Interpretation Comments RBC (test code = RBC) 4.91 4.70-6.10 [place] 592332-02-22 19:46:00 Test Item Value Reference Range Interpretation Comments Hgb (test code = Hgb) 13.7 14.0-18.0 [place] [address]-02-22 19:46:00 Test Item Value Reference Range Interpretation Comments Hct (test code = Hct) 42.1 42.0-54.0 [place] 592332-02-22 19:46:00 Test Item Value Reference Range Interpretation Comments MCV (test code = MCV) 85.8 80.0-94.0 [place] [address]-02-22 19:46:00 Test Item Value Reference Range Interpretation Comments MCH (test code = MCH) 27.9 pg 27.0-31.0 [place] [address]-02-22 19:46:00 Test Item Value Reference Range Interpretation Comments MCHC (test code = MCHC) 32.6 32.0-36.0 [place] 592332-02-22 19:46:00 Test Item Value Reference Range Interpretation Comments RDW (test code = RDW) 14.3 11.5-14.5 [place] 592332-02-22 19:46:00 Test Item Value Reference Range Interpretation Comments Platelet (test code = Platelet) 153 133-450 [place] 592332-02-22 19:46:00 Test Item Value Reference Range Interpretation Comments MPV (test code = MPV) 9.5 7.4-10.4 [place] 592332-02-22 19:46:00 Test Item Value Reference Range Interpretation Comments PT (test code = PT) 12.2 s 12.0-14.7 [place] 592332-02-22 19:46:00 Test Item Value Reference Range Interpretation Comments INR (test code = INR) 0.91 1 0.85-1.17 [place] 592332-02-22 19:46:00 Test Item Value Reference Range Interpretation Comments PTT (test code = PTT) 27.1 s 22.9-35.8 [place] 592332-02-22 19:46:00 Test Item Value Reference Range Interpretation Comments Plt Morph (test code = Normal (10/03/21 1:46 Plt Morph) PM) [place] 592332-02-22 19:46:00 Test Item Value Reference Range Interpretation Comments Segs (test code = Segs) 83.7 45.0-75.0 [place] 592332-02-22 19:46:00 Test Item Value Reference Range Interpretation Comments Lymphocytes (test code = Lymphocytes) 12.3 20.0-40.0 [place] 592332-02-22 19:46:00 Test Item Value Reference Range Interpretation Comments Monocytes (test code = Monocytes) 1.6 2.0-12.0 [place] 592332-02-22 19:46:00 Test Item Value Reference Range Interpretation Comments Eosinophils (test code = 2.0 See_Comment [A utomated message] The Eosinophils) system which ge nerated this result tra nsmitted reference range : <=4.0. The reference r caleb was not used to int erpret this result as normal/abnormal . [place] 592332-02-22 19:46:00 Test Item Value Reference Range Interpretation Comments Basophils (test code = 0.4 See_Comment [Aut omated message] The Basophils) system which ge nerated this result tra nsmitted reference range : <=1.0. The reference r caleb was not used to int erpret this result as normal/abnormal . [place] 592332-02-22 19:46:00 Test Item Value Reference Range Interpretation Comments Neutrophils # (test code = Neutrophils 5.2 1.5-8.1 #) [place] 592332-02-22 19:46:00 Test Item Value Reference Range Interpretation Comments Lymphocytes # (test code = Lymphocytes 0.8 1.0-5.5 #) [place] 592332-02-22 19:46:00 Test Item Value Reference Range Interpretation Comments Monocytes # (test code 0.1 See_Comment [Aut omated message] The = Monocytes #) system which generated this result tra nsmitted reference range : <=0.8. The reference r caleb was not used to int erpret this result as normal/abnormal . [place] 592332-02-22 19:46:00 Test Item Value Reference Range Interpretation Comments Eosinophils # (test code 0.1 See_Comment [A utomated message] The = Eosinophils #) system whic h generated this result tra nsmitted reference range : <=0.5. The reference r caleb was not used to int erpret this result as normal/abnormal . [facility]2022-02-22 19:46:00 Test Item Value Reference Range Interpretation Comments Glucose Lvl (test code = Glucose Lvl) 133 70-99 [place] 195202-02-22 19:46:00 Test Item Value Reference Range Interpretation Comments BUN (test code = BUN) 14 7-22 [place] 195202-02-22 19:46:00 Test Item Value Reference Range Interpretation Comments Creatinine Lvl (test code = Creatinine 1.22 0.50-1.40 Lvl) [place] 195202-02-22 19:46:00 Test Item Value Reference Range Interpretation Comments Sodium Lvl (test code = Sodium Lvl) 138 135-145 [place] 195202-02-22 19:46:00 Test Item Value Reference Range Interpretation Comments Potassium Lvl (test code = Potassium 4.1 3.5-5.1 Lvl) [place] 195202-02-22 19:46:00 Test Item Value Reference Range Interpretation Comments Chloride Lvl (test code = Chloride Lvl) 108 95-109 [place] 195202-02-22 19:46:00 Test Item Value Reference Range Interpretation Comments CO2 (test code = CO2) 26 24-32 [place] 195202-02-22 19:46:00 Test Item Value Reference Range Interpretation Comments Calcium Lvl (test code = Calcium Lvl) 8.6 8.5-10.5 [place] 195202-02-22 19:46:00 Test Item Value Reference Range Interpretation Comments AGAP (test code = AGAP) 8.1 10.0-20.0 [place] 195202-02-22 19:46:00 Test Item Value Reference Range Interpretation Comments eGFR (test code = eGFR) 73 [place] 592332-02-22 19:46:00 Test Item Value Reference Range Interpretation Comments WBC (test code = WBC) 6.2 3.7-10.4 [place] 592332-02-22 19:46:00 Test Item Value Reference Range Interpretation Comments RBC (test code = RBC) 4.91 4.70-6.10 [place] 592332-02-22 19:46:00 Test Item Value Reference Range Interpretation Comments Hgb (test code = Hgb) 13.7 14.0-18.0 [place] [address]-02-22 19:46:00 Test Item Value Reference Range Interpretation Comments Hct (test code = Hct) 42.1 42.0-54.0 [place] [address]-02-22 19:46:00 Test Item Value Reference Range Interpretation Comments MCV (test code = MCV) 85.8 80.0-94.0 [place] [address]-02-22 19:46:00 Test Item Value Reference Range Interpretation Comments MCH (test code = MCH) 27.9 pg 27.0-31.0 [place] 592332-02-22 19:46:00 Test Item Value Reference Range Interpretation Comments MCHC (test code = MCHC) 32.6 32.0-36.0 [place] 592332-02-22 19:46:00 Test Item Value Reference Range Interpretation Comments RDW (test code = RDW) 14.3 11.5-14.5 [place]2332-02-22 19:46:00 Test Item Value Reference Range Interpretation Comments Platelet (test code = Platelet) 153 133-450 [facility]wqeplvDAKNNOPBJT8119-04-51 19:46:00 Test Item Value Reference Range Interpretation Comments MPV (test code = MPV) 9.5 7.4-10.4 [place] 592332-02-22 19:46:00 Test Item Value Reference Range Interpretation Comments PT (test code = PT) 12.2 s 12.0-14.7 [place]2332-02-22 19:46:00 Test Item Value Reference Range Interpretation Comments INR (test code = INR) 0.91 1 0.85-1.17 [place] 592332-02-22 19:46:00 Test Item Value Reference Range Interpretation Comments PTT (test code = PTT) 27.1 s 22.9-35.8 [place] 592332-02-22 19:46:00 Test Item Value Reference Range Interpretation Comments Plt Morph (test code = Normal (10/03/21 1:46 Plt Morph) PM) [place] 592332-02-22 19:46:00 Test Item Value Reference Range Interpretation Comments Segs (test code = Segs) 83.7 45.0-75.0 [place] 592332-02-22 19:46:00 Test Item Value Reference Range Interpretation Comments Lymphocytes (test code = Lymphocytes) 12.3 20.0-40.0 [place] 592332-02-22 19:46:00 Test Item Value Reference Range Interpretation Comments Monocytes (test code = Monocytes) 1.6 2.0-12.0 [place] 592332-02-22 19:46:00 Test Item Value Reference Range Interpretation Comments Eosinophils (test code = 2.0 See_Comment [A utomated message] The Eosinophils) system which ge nerated this result tra nsmitted reference range : <=4.0. The reference r caleb was not used to int erpret this result as normal/abnormal . [facility]MmxhdgxRSHUYWQLHO8760-21-14 19:46:00 Test Item Value Reference Range Interpretation Comments Basophils (test code = 0.4 See_Comment [Aut omated message] The Basophils) system which ge nerated this result tra nsmitted reference range : <=1.0. The reference r caleb was not used to int erpret this result as normal/abnormal . [facility]neyDvltmsoDABAUVKRAW3442-41-43 19:46:00 Test Item Value Reference Range Interpretation Comments Neutrophils # (test code = Neutrophils 5.2 1.5-8.1 #) [facility] McKinneyGjpdolwCPAXLJXKHZ1803-38-59 19:46:00 Test Item Value Reference Range Interpretation Comments Lymphocytes # (test code = Lymphocytes 0.8 1.0-5.5 #) [facility]neyAaosxyeJALHMZNVAD7376-17-85 19:46:00 Test Item Value Reference Range Interpretation Comments Monocytes # (test code 0.1 See_Comment [Aut omated message] The = Monocytes #) system which generated this result tra nsmitted reference range : <=0.8. The reference r caleb was not used to int erpret this result as normal/abnormal . [facility] McKinneyNiejvxnPRHNGGCZRT4354-64-63 19:46:00 Test Item Value Reference Range Interpretation Comments Eosinophils # (test code 0.1 See_Comment [A utomated message] The = Eosinophils #) system whic h generated this result tra nsmitted reference range : <=0.5. The reference r caleb was not used to int erpret this result as normal/abnormal . [facility] [employer] [id number] 17:31:00 Test Item Value Reference Range Interpretation Comments ABO/Rh (test code = ABO/Rh) O POS [facility] [place] [id number] 17:31:00 Test Item Value Reference Range Interpretation Comments Antibody Scrn (test Negative (10/02/21 code = Antibody Scrn) 11:31 AM) [facility] CampusSongFlame [id number] 17:31:00 Test Item Value Reference Range Interpretation Comments Glucose Lvl (test code = Glucose Lvl) 92 70-99 [facility] CampusAsset InternationalHQJBW3902-23-98 17:31:00 Test Item Value Reference Range Interpretation Comments BUN (test code = BUN) 17 - [place] 195202-02-21 17:31:00 Test Item Value Reference Range Interpretation Comments Creatinine Lvl (test code = Creatinine 1.21 0.50-1.40 Lvl) [place] 195202-02-21 17:31:00 Test Item Value Reference Range Interpretation Comments Sodium Lvl (test code = Sodium Lvl) 140 135-145 [place] 195202-02-21 17:31:00 Test Item Value Reference Range Interpretation Comments Potassium Lvl (test code = Potassium 4.2 3.5-5.1 Lvl) [place] 195202-02-21 17:31:00 Test Item Value Reference Range Interpretation Comments Chloride Lvl (test code = Chloride Lvl) 108 95-109 [place] 195202-02-21 17:31:00 Test Item Value Reference Range Interpretation Comments CO2 (test code = CO2) -32 [place] 195202-02-21 17:31:00 Test Item Value Reference Range Interpretation Comments Calcium Lvl (test code = Calcium Lvl) 9.4 8.5-10.5 [place] 195202-02-21 17:31:00 Test Item Value Reference Range Interpretation Comments AGAP (test code = AGAP) 10.2 10.0-20.0 [place] 195202-02-21 17:31:00 Test Item Value Reference Range Interpretation Comments eGFR (test code = eGFR) 74 [place]2332-02-21 17:31:00 Test Item Value Reference Range Interpretation Comments PTT (test code = PTT) 28.1 s 22.9-35.8 [place] [address]-02-21 17:31:00 Test Item Value Reference Range Interpretation Comments PT (test code = PT) 11.8 s 12.0-14.7 [place] [address]-02-21 17:31:00 Test Item Value Reference Range Interpretation Comments INR (test code = INR) 0.87 1 0.85-1.17 [place] [address]-02-21 17:31:00 Test Item Value Reference Range Interpretation Comments WBC (test code = WBC) 5.4 3.7-10.4 [place] 592332-02-21 17:31:00 Test Item Value Reference Range Interpretation Comments RBC (test code = RBC) 4.90 4.70-6.10 [place] 592332-02-21 17:31:00 Test Item Value Reference Range Interpretation Comments Hgb (test code = Hgb) 13.7 14.0-18.0 [place] 592332-02-21 17:31:00 Test Item Value Reference Range Interpretation Comments Hct (test code = Hct) 42.0 42.0-54.0 [place] 592332-02-21 17:31:00 Test Item Value Reference Range Interpretation Comments MCV (test code = MCV) 85.6 80.0-94.0 [place]2332-02-21 17:31:00 Test Item Value Reference Range Interpretation Comments MCH (test code = MCH) 27.9 pg 27.0-31.0 [place] 592332-02-21 17:31:00 Test Item Value Reference Range Interpretation Comments MCHC (test code = MCHC) 32.6 32.0-36.0 [place]2332-02-21 17:31:00 Test Item Value Reference Range Interpretation Comments RDW (test code = RDW) 14.1 11.5-14.5 [place]2332-02-21 17:31:00 Test Item Value Reference Range Interpretation Comments Platelet (test code = Platelet) 173 133-450 [place] 592332-02-21 17:31:00 Test Item Value Reference Range Interpretation Comments MPV (test code = MPV) 10.1 7.4-10.4 [place] [address]-02-21 17:31:00 Test Item Value Reference Range Interpretation Comments Segs (test code = Segs) 54.1 45.0-75.0 [place]2332-02-21 17:31:00 Test Item Value Reference Range Interpretation Comments Lymphocytes (test code = Lymphocytes) 30.9 20.0-40.0 [place] [address]-02-21 17:31:00 Test Item Value Reference Range Interpretation Comments Monocytes (test code = Monocytes) 6.7 2.0-12.0 [place] [address]-02-21 17:31:00 Test Item Value Reference Range Interpretation Comments Eosinophils (test code = 7.7 See_Comment [A utomated message] The Eosinophils) system which ge nerated this result tra nsmitted reference range : <=4.0. The reference r caleb was not used to int erpret this result as normal/abnormal . [facility]bAQFPKIGYVI5861-69-07 17:31:00 Test Item Value Reference Range Interpretation Comments Basophils (test code = 0.6 See_Comment [Aut omated message] The Basophils) system which ge nerated this result tra nsmitted reference range : <=1.0. The reference r caleb was not used to int erpret this result as normal/abnormal . [facility] SystemDljrbaaHYZDRGTAUA3161-93-78 17:31:00 Test Item Value Reference Range Interpretation Comments Neutrophils # (test code = Neutrophils 2.9 1.5-8.1 #) [facility] McKinneyUectngyWCRVJZCWDE2605-82-63 17:31:00 Test Item Value Reference Range Interpretation Comments Lymphocytes # (test code = Lymphocytes 1.7 1.0-5.5 #) [facility] McKinneyGxlvzcaEKPPXMRTQX9116-29-30 17:31:00 Test Item Value Reference Range Interpretation Comments Monocytes # (test code 0.4 See_Comment [Aut omated message] The = Monocytes #) system which generated this result tra nsmitted reference range : <=0.8. The reference r caleb was not used to int erpret this result as normal/abnormal . [facility] SystemQcgsnbxSGPMEFSPCN4045-69-01 17:31:00 Test Item Value Reference Range Interpretation Comments Eosinophils # (test code 0.4 See_Comment [A utomated message] The = Eosinophils #) system whic h generated this result tra nsmitted reference range : <=0.5. The reference r caleb was not used to int erpret this result as normal/abnormal . [facility] CampusEolonuzSFLPUWEKSV7112-89-24 17:31:00 Test Item Value Reference Range Interpretation Comments Coronavirus (COVID-19) Not Detected (10/02/21 LIZBETH (test code = 11:31 AM) Coronavirus (COVID-19) LIZBETH) [facility] [id number] 17:31:00 Test Item Value Reference Range Interpretation Comments Hgb A1C (test code = Hgb A1C) 5.7 [facility] [id number] 17:31:00 Test Item Value Reference Range Interpretation Comments ABO/Rh (test code = ABO/Rh) O POS [facility] [id number] 17:31:00 Test Item Value Reference Range Interpretation Comments Antibody Scrn (test Negative (10/02/21 code = Antibody Scrn) 11:31 AM) [facility]2022-02-21 17:31:00 Test Item Value Reference Range Interpretation Comments Glucose Lvl (test code = Glucose Lvl) 92 70-99 [facility]2022-02-21 17:31:00 Test Item Value Reference Range Interpretation Comments BUN (test code = BUN) 17 - [facility]2022-02-21 17:31:00 Test Item Value Reference Range Interpretation Comments Creatinine Lvl (test code = Creatinine 1.21 0.50-1.40 Lvl) [facility]2022-02-21 17:31:00 Test Item Value Reference Range Interpretation Comments Sodium Lvl (test code = Sodium Lvl) 140 135-145 [facility]2022-02-21 17:31:00 Test Item Value Reference Range Interpretation Comments Potassium Lvl (test code = Potassium 4.2 3.5-5.1 Lvl) [facility]2022-02-21 17:31:00 Test Item Value Reference Range Interpretation Comments Chloride Lvl (test code = Chloride Lvl) 108 95-109 [facility]2022-02-21 17:31:00 Test Item Value Reference Range Interpretation Comments CO2 (test code = CO2) 26 24-32 [place] 195202-02-21 17:31:00 Test Item Value Reference Range Interpretation Comments Calcium Lvl (test code = Calcium Lvl) 9.4 8.5-10.5 [facility]2022-02-21 17:31:00 Test Item Value Reference Range Interpretation Comments AGAP (test code = AGAP) 10.2 10.0-20.0 [place] 195202-02-21 17:31:00 Test Item Value Reference Range Interpretation Comments eGFR (test code = eGFR) 74 [facility] McKinneyXueesahEWANUYLIRP3322-70-96 17:31:00 Test Item Value Reference Range Interpretation Comments PTT (test code = PTT) 28.1 s 22.9-35.8 [facility] McKinneyTrplappIJBKLBOWOR4770-09-45 17:31:00 Test Item Value Reference Range Interpretation Comments PT (test code = PT) 11.8 s 12.0-14.7 [facility] McKinneyJumkzlkDHGQLKCXAJ9810-34-46 17:31:00 Test Item Value Reference Range Interpretation Comments INR (test code = INR) 0.87 1 0.85-1.17 [facility] McKinneyHrmrckkEAOMGVOYUM5284-01-69 17:31:00 Test Item Value Reference Range Interpretation Comments WBC (test code = WBC) 5.4 3.7-10.4 [facility] McKinneyOphztocWTJBWTBNYC7345-45-28 17:31:00 Test Item Value Reference Range Interpretation Comments RBC (test code = RBC) 4.90 4.70-6.10 [facility] McKinneyYssootrDKUENWPAJY3150-44-76 17:31:00 Test Item Value Reference Range Interpretation Comments Hgb (test code = Hgb) 13.7 14.0-18.0 [facility] McKinneyLtqbvqaSSRUKFHKWG4725-38-53 17:31:00 Test Item Value Reference Range Interpretation Comments Hct (test code = Hct) 42.0 42.0-54.0 [facility] McKinneyBrtjcgyZEVGIMGTCI1376-06-94 17:31:00 Test Item Value Reference Range Interpretation Comments MCV (test code = MCV) 85.6 80.0-94.0 [facility] McKinneyRrwblysUVVOKNYUBY2214-32-67 17:31:00 Test Item Value Reference Range Interpretation Comments MCH (test code = MCH) 27.9 pg 27.0-31.0 [facility] McKinneyNmophqsPPSRSMFWQG3146-85-16 17:31:00 Test Item Value Reference Range Interpretation Comments MCHC (test code = MCHC) 32.6 32.0-36.0 [facility] McKinneyVrmqzbfSPICHXFAKJ1093-82-19 17:31:00 Test Item Value Reference Range Interpretation Comments RDW (test code = RDW) 14.1 11.5-14.5 [place]2332-02-21 17:31:00 Test Item Value Reference Range Interpretation Comments Platelet (test code = Platelet) 173 133-450 [facility] McKinneyIuvupqtMQKXKCEZOT8199-31-39 17:31:00 Test Item Value Reference Range Interpretation Comments MPV (test code = MPV) 10.1 7.4-10.4 [facility] McKinneyMfpyhngYULIFHRUHR6315-71-33 17:31:00 Test Item Value Reference Range Interpretation Comments Segs (test code = Segs) 54.1 45.0-75.0 [place]2332-02-21 17:31:00 Test Item Value Reference Range Interpretation Comments Lymphocytes (test code = Lymphocytes) 30.9 20.0-40.0 [place]2332-02-21 17:31:00 Test Item Value Reference Range Interpretation Comments Monocytes (test code = Monocytes) 6.7 2.0-12.0 [place] [address]-02-21 17:31:00 Test Item Value Reference Range Interpretation Comments Eosinophils (test code = 7.7 See_Comment [A utomated message] The Eosinophils) system which ge nerated this result tra nsmitted reference range : <=4.0. The reference r caleb was not used to int erpret this result as normal/abnormal . [address]02-21 17:31:00 Test Item Value Reference Range Interpretation Comments Basophils (test code = 0.6 See_Comment [Aut omated message] The Basophils) system which ge nerated this result tra nsmitted reference range : <=1.0. The reference r caleb was not used to int erpret this result as normal/abnormal . [place]2332-02-21 17:31:00 Test Item Value Reference Range Interpretation Comments Neutrophils # (test code = Neutrophils 2.9 1.5-8.1 #) [place] [address]-02-21 17:31:00 Test Item Value Reference Range Interpretation Comments Lymphocytes # (test code = Lymphocytes 1.7 1.0-5.5 #) [place] [address]-02-21 17:31:00 Test Item Value Reference Range Interpretation Comments Monocytes # (test code 0.4 See_Comment [Aut omated message] The = Monocytes #) system which generated this result tra nsmitted reference range : <=0.8. The reference r caleb was not used to int erpret this result as normal/abnormal . [place] [address]-02-21 17:31:00 Test Item Value Reference Range Interpretation Comments Eosinophils # (test code 0.4 See_Comment [A utomated message] The = Eosinophils #) system [facility] h generated this result tra nsmitted reference range : <=0.5. The reference r caleb was not used to int erpret this result as normal/abnormal . [facility] CampusCfkxqesMHLGPSPZQZ6201-50-55 17:31:00 Test Item Value Reference Range Interpretation Comments Coronavirus (COVID-19) Not Detected (10/02/21 LIZBETH (test code = 11:31 AM) Coronavirus (COVID-19) LIZBETH) [facility] [id number] 17:31:00 Test Item Value Reference Range Interpretation Comments Hgb A1C (test code = Hgb A1C) 5.7 [facility] McKinneyIiqlrhdFZKDKPCMFV9324-65-65 07:37:00 Test Item Value Reference Range Interpretation Comments Sed Rate (test code = 2 See_Comment [Auto mated message] The Sed Rate) system which ge nerated this result transmit leydi reference range : <=15. The reference range was not used to interpr et this result as krishna l/abnormal. [facility]DxufxxdUVETJLVQKT4527-07-86 07:37:00 Test Item Value Reference Range Interpretation Comments C-REACTIVE PROTEIN (test code = 8.4 C-REACTIVE PROTEIN) [facility] McKinneyMrdzqdpIUFEFBQXUQ0718-85-07 07:37:00 Test Item Value Reference Range Interpretation Comments Sed Rate (test code = 2 See_Comment [Auto mated message] The Sed Rate) system which ge nerated this result transmit leydi reference range : <=15. The reference range was not used to interpr et this result as krishna l/abnormal. [facility] TexasTmcgetxLKWPXJYDZI7719-16-89 07:37:00 Test Item Value Reference Range Interpretation Comments C-REACTIVE PROTEIN (test code = 8.4 C-REACTIVE PROTEIN) [facility]2021-09-30 01:10:00 Test Item Value Reference Range Interpretation Comments Glucose Lvl (test code = Glucose Lvl) 115 70-99 [facility]2021-09-30 01:10:00 Test Item Value Reference Range Interpretation Comments BUN (test code = BUN) 13 7-22 [facility]2021-09-30 01:10:00 Test Item Value Reference Range Interpretation Comments Creatinine Lvl (test code = Creatinine 1.21 0.50-1.40 Lvl) [facility]2021-09-30 01:10:00 Test Item Value Reference Range Interpretation Comments Sodium Lvl (test code = Sodium Lvl) 141 135-145 [facility]2021-09-30 01:10:00 Test Item Value Reference Range Interpretation Comments Potassium Lvl (test code = Potassium 3.8 3.5-5.1 Lvl) [place]201-09-30 01:10:00 Test Item Value Reference Range Interpretation Comments Chloride Lvl (test code = Chloride Lvl) 110 95-109 [place] 195201-09-30 01:10:00 Test Item Value Reference Range Interpretation Comments CO2 (test code = CO2) 25 24-32 [place] 195201-09-30 01:10:00 Test Item Value Reference Range Interpretation Comments Calcium Lvl (test code = Calcium Lvl) 9.1 8.5-10.5 [place]201-09-30 01:10:00 Test Item Value Reference Range Interpretation Comments AGAP (test code = AGAP) 9.8 10.0-20.0 [place]201-09-30 01:10:00 Test Item Value Reference Range Interpretation Comments eGFR (test code = eGFR) 74 [place]2331-09-30 01:10:00 Test Item Value Reference Range Interpretation Comments WBC X 10x3 (test code = WBC X 10x3) 5.9 3.7-10.4 [place]2331-09-30 01:10:00 Test Item Value Reference Range Interpretation Comments RBC X 10x6 (test code = RBC X 10x6) 4.92 4.70-6.10 [place]2331-09-30 01:10:00 Test Item Value Reference Range Interpretation Comments Hgb (test code = Hgb) 13.8 14.0-18.0 [place]2331-09-30 01:10:00 Test Item Value Reference Range Interpretation Comments Hct (test code = Hct) 41.8 42.0-54.0 [place]2331-09-30 01:10:00 Test Item Value Reference Range Interpretation Comments MCV (test code = MCV) 84.9 80.0-94.0 [place]2331-09-30 01:10:00 Test Item Value Reference Range Interpretation Comments MCH (test code = MCH) 28.0 pg 27.0-31.0 [place]2331-09-30 01:10:00 Test Item Value Reference Range Interpretation Comments MCHC (test code = MCHC) 33.0 32.0-36.0 [place]2331-09-30 01:10:00 Test Item Value Reference Range Interpretation Comments RDW (test code = RDW) 14.0 11.5-14.5 [place]2331-09-30 01:10:00 Test Item Value Reference Range Interpretation Comments Platelet (test code = Platelet) 171 133-450 [place]2331-09-30 01:10:00 Test Item Value Reference Range Interpretation Comments MPV (test code = MPV) 8.8 7.4-10.4 [place]2331-09-30 01:10:00 Test Item Value Reference Range Interpretation Comments Segs (test code = Segs) 42.2 45.0-75.0 [place]2331-09-30 01:10:00 Test Item Value Reference Range Interpretation Comments Lymphocytes (test code = Lymphocytes) 37.9 20.0-40.0 [place]2331-09-30 01:10:00 Test Item Value Reference Range Interpretation Comments Monocytes (test code = Monocytes) 7.0 2.0-12.0 [facility] McKinneyLwgbbkzTDLOCFMBMC0031-62-25 01:10:00 Test Item Value Reference Range Interpretation Comments Eosinophils (test code = 11.6 See_Comment [A utomated message] The Eosinophils) system which ge nerated this result tra nsmitted reference range : <=4.0. The reference r caleb was not used to int erpret this result as normal/abnormal . [facility] McKinneyKtwhqtlXUVUBXTZES2375-52-19 01:10:00 Test Item Value Reference Range Interpretation Comments Basophils (test code = 1.3 See_Comment [Aut omated message] The Basophils) system which ge nerated this result tra nsmitted reference range : <=1.0. The reference r caleb was not used to int erpret this result as normal/abnormal . [place]23[place]-09-30 01:10:00 Test Item Value Reference Range Interpretation Comments Neutrophils # (test code = Neutrophils 2.5 1.5-8.1 #) [place]2331-09-30 01:10:00 Test Item Value Reference Range Interpretation Comments Lymphocytes # (test code = Lymphocytes 2.2 1.0-5.5 #) [place]2331-09-30 01:10:00 Test Item Value Reference Range Interpretation Comments Monocytes # (test code 0.4 See_Comment [Aut omated message] The = Monocytes #) system which generated this result tra nsmitted reference range : <=0.8. The reference r caleb was not used to int erpret this result as normal/abnormal . [place]2331-09-30 01:10:00 Test Item Value Reference Range Interpretation Comments Eosinophils # (test code 0.7 See_Comment [A utomated message] The = Eosinophils #) system whic h generated this result tra nsmitted reference range : <=0.5. The reference r caleb was not used to int erpret this result as normal/abnormal . [place]2331-09-30 01:10:00 Test Item Value Reference Range Interpretation Comments Basophils # (test code 0.1 See_Comment [Aut omated message] The = Basophils #) system which generated this result tra nsmitted reference range : <=0.2. The reference r caleb was not used to int erpret this result as normal/abnormal . [place]201-09-30 01:10:00 Test Item Value Reference Range Interpretation Comments Glucose Lvl (test code = Glucose Lvl) 115 70-99 [place] 195201-09-30 01:10:00 Test Item Value Reference Range Interpretation Comments BUN (test code = BUN) 13 7-22 [place] 195201-09-30 01:10:00 Test Item Value Reference Range Interpretation Comments Creatinine Lvl (test code = Creatinine 1.21 0.50-1.40 Lvl) [place]201-09-30 01:10:00 Test Item Value Reference Range Interpretation Comments Sodium Lvl (test code = Sodium Lvl) 141 135-145 [place] 195201-09-30 01:10:00 Test Item Value Reference Range Interpretation Comments Potassium Lvl (test code = Potassium 3.8 3.5-5.1 Lvl) [place]201-09-30 01:10:00 Test Item Value Reference Range Interpretation Comments Chloride Lvl (test code = Chloride Lvl) 110 95-109 [place] 195201-09-30 01:10:00 Test Item Value Reference Range Interpretation Comments CO2 (test code = CO2) 25 24-32 [facility]2021-09-30 01:10:00 Test Item Value Reference Range Interpretation Comments Calcium Lvl (test code = Calcium Lvl) 9.1 8.5-10.5 [place]201-09-30 01:10:00 Test Item Value Reference Range Interpretation Comments AGAP (test code = AGAP) 9.8 10.0-20.0 [place]201-09-30 01:10:00 Test Item Value Reference Range Interpretation Comments eGFR (test code = eGFR) 74 [facility] McKinneyEkcudeuMOEAVWDPFR8938-38-37 01:10:00 Test Item Value Reference Range Interpretation Comments WBC X 10x3 (test code = WBC X 10x3) 5.9 3.7-10.4 [place]2331-09-30 01:10:00 Test Item Value Reference Range Interpretation Comments RBC X 10x6 (test code = RBC X 10x6) 4.92 4.70-6.10 [place]2331-09-30 01:10:00 Test Item Value Reference Range Interpretation Comments Hgb (test code = Hgb) 13.8 14.0-18.0 [facility] McKinneyRlzujsqEQJJTDUSWB5189-69-86 01:10:00 Test Item Value Reference Range Interpretation Comments Hct (test code = Hct) 41.8 42.0-54.0 [place]2331-09-30 01:10:00 Test Item Value Reference Range Interpretation Comments MCV (test code = MCV) 84.9 80.0-94.0 [place]2331-09-30 01:10:00 Test Item Value Reference Range Interpretation Comments MCH (test code = MCH) 28.0 pg 27.0-31.0 [facility] McKinneyOyamhyiPSMOHZJKBY1292-65-44 01:10:00 Test Item Value Reference Range Interpretation Comments MCHC (test code = MCHC) 33.0 32.0-36.0 [id number] 01:10:00 Test Item Value Reference Range Interpretation Comments RDW (test code = RDW) 14.0 11.5-14.5 [place] 592331-09-30 01:10:00 Test Item Value Reference Range Interpretation Comments Platelet (test code = Platelet) 171 133-450 [place] 592331-09-30 01:10:00 Test Item Value Reference Range Interpretation Comments MPV (test code = MPV) 8.8 7.4-10.4 [id number] 01:10:00 Test Item Value Reference Range Interpretation Comments Segs (test code = Segs) 42.2 45.0-75.0 [place] 592331-09-30 01:10:00 Test Item Value Reference Range Interpretation Comments Lymphocytes (test code = Lymphocytes) 37.9 20.0-40.0 [place] 592331-09-30 01:10:00 Test Item Value Reference Range Interpretation Comments Monocytes (test code = Monocytes) 7.0 2.0-12.0 [place] 592331-09-30 01:10:00 Test Item Value Reference Range Interpretation Comments Eosinophils (test code = 11.6 See_Comment [A utomated message] The Eosinophils) system which ge nerated this result tra nsmitted reference range : <=4.0. The reference r caleb was not used to int erpret this result as normal/abnormal . [id number] 01:10:00 Test Item Value Reference Range Interpretation Comments Basophils (test code = 1.3 See_Comment [Aut omated message] The Basophils) system which ge nerated this result tra nsmitted reference range : <=1.0. The reference r caleb was not used to int erpret this result as normal/abnormal . [id number] 01:10:00 Test Item Value Reference Range Interpretation Comments Neutrophils # (test code = Neutrophils 2.5 1.5-8.1 #) [place] 592331-09-30 01:10:00 Test Item Value Reference Range Interpretation Comments Lymphocytes # (test code = Lymphocytes 2.2 1.0-5.5 #) [place] 592331-09-30 01:10:00 Test Item Value Reference Range Interpretation Comments Monocytes # (test code 0.4 See_Comment [Aut omated message] The = Monocytes #) system which generated this result tra nsmitted reference range : <=0.8. The reference r caleb was not used to int erpret this result as normal/abnormal . [facility] [id number] 01:10:00 Test Item Value Reference Range Interpretation Comments Eosinophils # (test code 0.7 See_Comment [A utomated message] The = Eosinophils #) system whic h generated this result tra nsmitted reference range : <=0.5. The reference r caleb was not used to int erpret this result as normal/abnormal . [id number] 01:10:00 Test Item Value Reference Range Interpretation Comments Basophils # (test code 0.1 See_Comment [Aut omated message] The = Basophils #) system which generated this result tra nsmitted reference range : <=0.2. The reference r caleb was not used to int erpret this result as normal/abnormal . [facility] CampusWirelessGate [id number] 18:20:00 Test Item Value Reference Range Interpretation Comments eGFR (test code = eGFR) 90 [facility]2018-11-27 18:20:00 Test Item Value Reference Range Interpretation Comments AGAP (test code = AGAP) 4.2 10.0-20.0 [facility]2018-11-27 18:20:00 Test Item Value Reference Range Interpretation Comments Calcium Lvl (test code = Calcium Lvl) 8.6 8.5-10.5 [facility]2018-11-27 18:20:00 Test Item Value Reference Range Interpretation Comments CO2 (test code = CO2) 30 24-32 [facility]2018-11-27 18:20:00 Test Item Value Reference Range Interpretation Comments Chloride Lvl (test code = Chloride Lvl) 109 95-109 [facility]2018-11-27 18:20:00 Test Item Value Reference Range Interpretation Comments Potassium Lvl (test code = Potassium 4.2 3.5-5.1 Lvl) [facility]2018-11-27 18:20:00 Test Item Value Reference Range Interpretation Comments Sodium Lvl (test code = Sodium Lvl) 139 135-145 [facility]2018-11-27 18:20:00 Test Item Value Reference Range Interpretation Comments Glucose Lvl (test code = Glucose Lvl) 111 70-99 [facility]2018-11-27 18:20:00 Test Item Value Reference Range Interpretation Comments BUN (test code = BUN) 18 7- [facility]2018-11-27 18:20:00 Test Item Value Reference Range Interpretation Comments Creatinine Lvl (test code = Creatinine 1.18 0.50-1.40 Lvl) [facility]2018-11-27 18:20:00 Test Item Value Reference Range Interpretation Comments eGFR (test code = eGFR) 90 [facility]2018-11-27 18:20:00 Test Item Value Reference Range Interpretation Comments AGAP (test code = AGAP) 4.2 10.0-20.0 [facility]2018-11-27 18:20:00 Test Item Value Reference Range Interpretation Comments Calcium Lvl (test code = Calcium Lvl) 8.6 8.5-10.5 [facility]2018-11-27 18:20:00 Test Item Value Reference Range Interpretation Comments CO2 (test code = CO2) 30 24-32 [facility]2018-11-27 18:20:00 Test Item Value Reference Range Interpretation Comments Chloride Lvl (test code = Chloride Lvl) 109 95-109 [facility]2018-11-27 18:20:00 Test Item Value Reference Range Interpretation Comments Potassium Lvl (test code = Potassium 4.2 3.5-5.1 Lvl) [facility]2018-11-27 18:20:00 Test Item Value Reference Range Interpretation Comments Sodium Lvl (test code = Sodium Lvl) 139 135-145 [facility]2018-11-27 18:20:00 Test Item Value Reference Range Interpretation Comments Glucose Lvl (test code = Glucose Lvl) 111 70-99 [facility]2018-11-27 18:20:00 Test Item Value Reference Range Interpretation Comments BUN (test code = BUN) 18 - [facility]2018-11-27 18:20:00 Test Item Value Reference Range Interpretation Comments Creatinine Lvl (test code = Creatinine 1.18 0.50-1.40 Lvl) [facility][U] XRAY ELBOW 2 VWS RIGHT [id number] 15:57:00Images acquired, not reported on this accession number.[facility][U] XRAY WRIST MIN 3 VWS RIGHT [id number] 15:57:00Images acquired, not reported on this accession number.[facility]
[2023-06-01] MEDS ORDERED: CYCLOBENZAPRINE 10 MG TAB ONE (18:20)
[2023-06-01] MEDS ORDERED: KETOROLAC 30 MG/ML INJ ONE (18:20)
--- NOTE | 2023-06-01 18:55 | ER ---
Nurse's Notes [facility] Name: Terry Akins Sr Age: 42 yrs Sex: Male : 1980 Arrival Date: 06/01/2023 Time: 17:52 Bed 12 Private MD: Diagnosis: Dental caries, unspecified Presentation: 06/01 18:02 Chief complaint: Seen in ED yesterday for left lower molar pain, reports pain today is hb 1010. Coronavirus screen: At this time, the client does not indicate any symptoms associated with coronavirus-19. Ebola Screen: No symptoms or risks identified at this time. Initial Sepsis Screen: Does the patient meet any 2 criteria? No. Patient's initial sepsis screen is negative. Does the patient have a suspected source of infection? No. Patient's initial sepsis screen is negative. Risk Assessment: Do you want to hurt yourself or someone else? Patient reports no desire to harm self or others. Onset of symptoms was May 31, 2023. 18:02 Method Of Arrival: Ambulatory hb 18:02 Acuity: SARITHA 4 hb Triage Assessment: 18:04 General: Appears in no apparent distress. uncomfortable, Behavior is cooperative, hb anxious. Pain: Pain currently is 10 out of 10 on a pain scale. EENT: Reports pain since left lower molar. Neuro: Level of Consciousness is awake, alert, obeys commands, Oriented to person, place, time, situation. Cardiovascular: Patient's skin is warm and dry. Respiratory: Respiratory effort is even, unlabored, Respiratory pattern is regular, symmetrical. GI: No signs and/or symptoms were reported involving the gastrointestinal system. : No signs and/or symptoms were reported regarding the genitourinary system. Derm: Skin is pink, warm \T\ dry. Musculoskeletal: No signs and/or symptoms reported regarding the musculoskeletal system. Historical: - Allergies: 18:03 No Known Allergies; hb - Home Meds: 18:03 gabapentin oral [Active]; hb - PMHx: 18:03 Hypertensive disorder; Migraine; hb - PSHx: 18:03 Appendectomy; carpal tunnel right; hernia; left hand tendonitis; Mastoid surgery; Nerve hb transplantion; shunt; - Immunization history:: Adult Immunizations up to date. - Social history:: Smoking status: Patient reports the use of cigarette tobacco products, smokes one-half pack cigarettes per day. Screenin:04 [facility] ED Fall Risk Assessment (Adult) Score/Fall Risk Level 0 - 2 = Low Risk hb Oriented to surroundings, Maintained a safe environment. Abuse screen: Denies threats or abuse. Denies injuries from another. Nutritional screening: No deficits noted. Tuberculosis screening: No symptoms or risk factors identified. Assessment: 18:05 General: See triage assessment . hb Vital Signs: 18:02 BP 184 / 94; Pulse 82; Resp 18; Temp 98.7; Pulse Ox 100% on R/A; Pain 10/10; hb 18:02 Pain Scale: Adult hb ED Course: 17:56 Patient arrived in ED. ts1 17:58 Dorothy Oconnor FNP is [facility] 17:59 Stephane Rizvi MD is Attending Physician. [facility] 18:03 Lisa Fuller, RN is Primary Nurse. ap3 18:03 Triage completed. hb 18:04 Arm band placed on. hb 18:05 Patient has correct armband on for positive identification. Provided Education on: . hb 18:05 No provider procedures requiring assistance completed. Patient did not have IV access hb during this emergency room visit. Administered Medications: 18:11 Drug: Ketorolac IM 60 mg IM once Route: IM; Site: right gluteus; ap3 18:54 Follow up: Response: No adverse reaction; Pain is decreased ap3 18:11 Drug: Cyclobenzaprine PO 10 mg PO once Route: PO; ap3 18:54 Follow up: Response: No adverse reaction; Pain is decreased ap3 Medication: 18:04 VIS not applicable for this client. hb Outcome: 18:02 Discharge ordered by . [facility] 18:05 Discharged to home ambulatory, hb 18:05 Condition: stable 18:05 Discharge instructions given to patient, Instructed on discharge instructions, follow up and referral plans. medication usage, Demonstrated understanding of instructions, follow-up care, medications, Prescriptions given X 1, 18:54 Patient left the ED. ap3 Signatures: Sophie Garcia RN RN Lisa Fuller RN RN ap3 Dorothy Oconnor FNP FNP [facility] Angelica Portillo PAS [facility] ts1
== END 2023-06-01 18:54 | disposition home or self-care (01) ==
LOC: ER 17:52
DX: K02.9 Dental caries, unspecified (principal)
CPT/HCPCS: 96372; 99284

== ENCOUNTER 2023-07-08 22:43 | Emergency (ER) | payer SELFPAY ==
--- OUTSIDE RECORDS SUMMARY | 2023-07-08 23:03 | XMS REPORT | Continuity of Care Document ---
:1980 Author Organization [facility] t Address [address] [place] [address] Care Team Providers Name Role Phone Geovanna Foley DO Primary Care Physician Vazquez, John M Attending Clinician Unavailable GERONIMO MICHELLE Attending Clinician Unavailable NOAH OSORIO Attending Clinician Unavailable JUNIOR MELO Attending Clinician Unavailable MANASA CULLEN Attending Clinician Unavailable DAVID RAGLAND Attending Clinician Unavailable JOHAN HONEYCUTT Attending Clinician Unavailable MAGNOLIA MONTES DE OCA Attending Clinician Unavailable Magnolia Nguyen Attending Clinician Manasa Cullen Attending Clinician MANASA CULLEN Attending Clinician Unavailable CRIS JAIMES Attending Clinician Unavailable Kelly LOJA, Karen Trent Attending Clinician Darshan LOJA, Julian Attending Clinician César LOJA, Aidan Attending Clinician Cecil LOJA, Jimmy Amato Attending Clinician [phone] ANU TUCKER Attending Clinician Unavailable NOAH OSORIO Attending Clinician Unavailable Noah Osorio Attending Clinician Sonia Treviño Attending Clinician SONIA TREVIÑO Attending Clinician Unavailable Rae Naranjo RN Attending Clinician Unavailable Geronimo Michelle Attending Clinician Layne Sánchez MA Attending Clinician Unavailable Geronimo Michelle MD Attending Clinician Dorothea Delgadillo MA Attending Clinician Unavailable Amelia Cameron MA Attending Clinician Unavailable Brii Howard MA Attending Clinician Unavailable Kasi Fried Attending Clinician Doctor Unassigned, [place] Attending Clinician Unavailable 1, [employer] [...] Attending Clinician Unavailable Jose Crenshaw Attending Clinician MAGNOLIA MONTES DE OCA Admitting Clinician Unavailable Manasa Cullen Admitting Clinician MANASA CULLEN Admitting Clinician Unavailable MANASA CULLEN Admitting Clinician Unavailable JULIAN SEXTON Admitting Clinician Unavailable NOAH OSORIO Admitting Clinician Unavailable Mala, Noah Ziegler Admitting Clinician Blaire PADRON Admitting Clinician Unavailable Migue Valle Admitting Clinician Geovanna Foley Admitting Clinician Payers Payer Name Policy Type Policy Number Effective Date Expiration Date Vidal rueda [facility] MED[facility] [id number] 2019 [place] 00:00:00 [facility] [id number] 2019 HEALTH CHOICE 00:00:00 [facility] [id number] 2018 [facility] 00:00:00 [facility] [id number] 2018 [facility] HEALTH CHOICE 00:00:00 [facility] [id number] 2018 [facility] HEALTH CHOICE 00:00:00 [facility] [id number] 2018 [facility] HEALTH CHOICE 00:00:00 [facility] [id number] 2018 [facility] HEALTH CHOICE 00:00:00 [facility] [id number] 2018 [facility] HEALTH CHOICE 00:00:00 [facility] [id number] 2018 [facility] HEALTH CHOICE 00:00:00 [facility] Problems Condition Condition Condition Status Onset Resolution Last Treating Co mments Source Name Details Category Date Date Treatment Clinician Date CRANIAL CRANIAL Diagnosis Active 2023-06-17 Memoria CEREBROSPI CEREBROSPI 02-01 08:45:00 l NAL FLUID NAL FLUID 00:00: Herm faina LEAK, LEAK, 00 SPONTA SPONTA Active 02/01/2023 [facility] Intractabl Intractabl Disease Active 2023-0 M ethodi e vomiting e vomiting 5- st with with 00:00: Hospita nausea nausea 00 l Hematemesi Hematemesi Disease Active 2022- M ethodi s with s with 5-28 [...] Active 12:00: [place] 05/16/2022 00 [facility] SENY BY SENY BY Diagnosis Active 2021-082022-05-16 Memoria PHYISICIAN PHYISICIAN 0-05 19:45:00 l Active 12:00: [place] 05/16/2022 00 [facility] L L Diagnosis Active 2021-082022-05-12 Mem oria MASTOIDITI MASTOIDITI 0-01 05:56:00 l S S Active 00:00: [place] 05/12/2022 00 [facility] UNSPECIFIE UNSPECIFI Diagnosis Active 2021-10-26 Memoria D ED 3-15 18:20:00 l ABDOMINAL ABDOMINAL 00:00: Herm faina PAIN PAIN 00 Active 10/24/2021 [facility] DISPLACED DISPLACED Diagnosis Active 2021-10-08 Memoria 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 10-08 19:39:00 l Active 00:00: [place] 10/08/2021 00 [facility] 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 Diagnosis Active 2021-10-26 Memoria MALF MALF 10-08 18:20:00 l Active 00:00: [place] 10/08/2021 00 [facility] G96.00 G96.00 Diagnosis Active 2021-10-26 M emoria Active 09-28 18:20:00 l 09/28/2021 00:00: Sadi gresham [address] MD LOJA Diagnosis Active 2021-05-10 Mem oria REFERRAL/ REFERRAL/ 05-10 20:33:00 l FLUIDS FLUIDS 00:00: [place] LEAKING LEAKING 00 FROM EAR FROM EAR Active 05/10/2021 [facility] CSF CSF Disease Active 2020- [place] otorrhea otorrhea 05-09 Health 00:00: 00 Syncope Syncope Disease Active 2017-08 [facility] 0-14 [facility] 00:00: Hospita 00 l [id number] Non-season Problem Com mon al [facility], [facility] [id number] Mild Problem Common intermitte Spirit nt asthma - [facility] with allergic [facility] rhinitis, [facility] unspecifie Center d whether complicate d [id number] Depression Problem Co mmon with Spirit anxiety - [facility] [id number] Migraine Problem Comm on without [facility] aura and - CHI without [facility] migrainosu Medica l s, not Center intractabl e [id number] Attention Problem Comm on deficit Spirit hyperactiv - [facility] ity [facility] (ADHD), Medical combined Center type [id number] Primary Problem Comm on osteoarthr Spirit itis of - CHI right knee [facility] [id number] Pain in Problem Common right knee Spirit - [facility] Body mass Body mass Problem Com mon index 40+ index Spirit - severely [BMI] - CHI obese 45.0-49.9, [facility] [id number] Morbid Problem Commo n 9104 (severe) Spirit obesity - CHI due to [facility] [id number] Left Problem Common maxillary Spirit sinusitis - [facility] [id number] Hypertensi Problem Com mon on, Spirit unspecifie - CHI d type [facility] [id number] GERD Problem Common without Spirit esophagiti - CHI s [facility] [id number] Tobacco Problem Commo n use Spirit disorder - [facility] [id number] Other Problem Common chronic Spirit pain - [facility] [id number] Mixed Problem Common hyperlipid Spirit emia - [facility] [id number] Decreased Problem Com mon hearing of Spirit left ear - [facility] [id number] Loss of Problem Common taste [facility] - [facility] Lesion of Lesion of Problem 2019-01-26 Memoria ulnar ulnar 15:19:24 l nerve, nerve, [place] right right upper limb upper limb 9 [place] Unspecifie Unspecifi Problem 2019-01-26 Memoria d ed 15:19:24 l osteoarthr osteoarthr He rmfaina itis, itis, unspecifie unspecifie d site d site 01/26/2019 [place] Sleep Sleep Problem 2019-01-26 Memor ia apnea, apnea, 15:19:24 l unspecifie unspecifie He rmann d d 01/26/2019 [place] Unspecifie Unspecifi Problem 2019-01-26 Memoria d asthma, ed asthma, 15:19:24 l uncomplica uncomplica He rmann leydi leydi 01/26/2019 [place] Anxiety Anxiety Problem 2019-01-26 Me moria disorder, disorder, 15:19:24 l unspecifie unspecifie He rmann d d 01/26/2019 [place] Gastro-eso Problem 2019-01-26 M emoria phageal Gastro-eso 15:19:24 l reflux phageal [place] disease reflux without disease esophagiti without s esophagiti s 01/26/2019 [place] Essential Essential Problem 2019-01-26 Memoria (primary) (primary) 15:19:24 l hypertensi hypertensi He rmann on on 01/26/2019 [place] Personal Personal Problem 2019-01-26 Memoria history of history of 15:19:24 l nicotine nicotine Sadi n dependence dependence 9 [place] Allergy Allergy Problem 2019-01-26 Me moria status to status to 15:19:24 l analgesic analgesic Herm faina agent agent status status 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/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-01-26 Me moria (current) term 15:19:24 l use of (current) [place] non-steroi use of siddharth non-steroi anti-infla siddharth mmatories anti-infla (NSAID) mmatories (NSAID) 01/26/2019 [place] Dependence Problem 2019-01-26 M emoria on other Dependence 15:19:24 l enabling on other Sadi n machines enabling and machines devices and devices 01/26/2019 [place] Arthrodesi Arthrodes Problem 2019-01-26 Memoria s status is status 15:19:24 l 01/26/2019 Sadi n [place] MECH COMPL MECH Diagnosis Active 2021-10-26 Memoria OF COMPL OF 18:20:00 l VENTRICULA VENTRICULA He jose alfredo R R INTRACRANI INTRACRANI AL S AL S Active [facility] R10.30 - R10.30 - Diagnosis Active 2021-10-26 Memoria LOWER LOWER 18:20:00 l ABDOMINAL ABDOMINAL Herm faina PAIN, PAIN, UNSPECIF UNSPECIF Active RHODA Cedeño R10.84 - R10.84 - Diagnosis Active 2022-01-10 Memoria GENERALIZE GENERALIZE 14:35:00 l D D [place] ABDOMINAL ABDOMINAL PAIN PAIN Active RHODA Burr OTHER OTHER Diagnosis Active 2022-05-18 Mem oria REACTION REACTION 08:44:00 l TO SPINAL TO SPINAL Herm faina AND LUMBAR AND LUMBAR PUNC PUNC Active [facility] No known No known Disease Unive rs active active ity of problems problems [facility] Cerebrospi Cerebrosp Problem Active 2023-02-22 Memoria nal fluid inal fluid 04:30:20 l leak leak [place] (disorder) (disorder) Active Problem 02/22/2023 [facility], RHODA Cedeño, [facility] Chest pain Chest Problem Active 2023-02-22 M emoria (finding) pain 04:30:20 l (finding) [place] Active Problem 02/22/2023 [facility], RHODA Cedeño, RHODA Burr,[facility] Headache Headache Problem Active 2023-02-22 Memoria (finding) (finding) 04:30:20 l Active [place] Problem 02/22/2023 [facility] Morbid Morbid Problem Active 2023-02-22 David katarzyna obesity obesity 04:30:20 l (disorder) (disorder) He rmann Active Problem 02/22/2023 [facility], RHODA Cedeño,[facility] Rhabdomyol Rhabdomyo Problem Active 2023-02-22 Memoria ysis lysis 04:30:20 l (disorder) (disorder) He rmann Active Problem 02/22/2023 [facility], RHODA Cedeño, RHODA Burr,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 (finding) (finding) Active Problem 02/22/2023 [facility] G96.01 - G96.01 - Diagnosis Active 2023-02-13 Memoria CRANIAL CRANIAL 14:36:00 l CEREBROSPI CEREBROSPI He rmann NAL FLUID NAL FLUID LE LE Active [facility] Cubital Cubital Problem Active [facility] tunnel tunnel [...] Active [facility] vomiting vomiting Physic i ans Sprain of Sprain of Problem Resolve 2022-05-21 2022-05-21 Memoria ligament ligament d 5-13 21:55:10 21:55:10 l of finger of finger 00:00: Herm faina (disorder) (disorder) 00 Resolved 12/23/2011 Problem 05/21/2022 [facility], RHODA Cedeño, Thomas Renteria [place] History of Past Illness Condition Condition Condition Status Onset Resolution Last Treating Co mments Source Name Details Category Date Date Treatment Clinician Date Headache, Headache, Problem 2021-082022-05-14 2022-05-14 Memoria unspecifie unspecifie 0-02 23:16:23 23:16:23 l d d 02:01: [place] 05/13/2022 00 05/14/2022 [facility] Presence Presence Problem 2021-082022-05-14 2022-05-14 Memoria of of 0-02 23:16:23 23:16:23 l cerebrospi cerebrospi 02:01: Harpreet veliz nal fluid nal fluid 00 drainage drainage device device 05/13/2022 [facility] Carpal Carpal Problem 2017-082019-01-26 2019-01-26 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:19:24 15:19:24 l syndrome, syndrome, 04:59: Anya eisenberg right right 41 upper limb upper limb 8 01/26/2019 [place] Obstructiv Obstructi Problem 2017-082019-01-11 2019-01-11 Mike e sleep ve sleep 08-28 11:08:48 11:08:48 l apnea apnea 05:23: [place] (adult) (adult) 17 (pediatric (pediatric ) ) 06/28/2018 01/11/2019 [place] Unspecifie Unspecifi Problem 2017-082018-12-03 2018-12-03 Mike d ed 0-11 14:53:30 14:53:30 l mononeurop mononeurop 04:28: Harpreet veliz athy of athy of 42 right right upper limb upper limb 05/22/2018 12/03/2018 [place] Pain in Pain in Problem 2017-082018-12-03 2018-12-03 Mike arm, arm, 0-05 14:53:30 14:53:30 l unspecifie unspecifie 05:00: Harpreet veliz d d 00 05/16/2018 12/03/2018 [place] Allergies, Adverse Reactions, Alerts Allergy Allergy Status Severity Reaction(s) Onset Inactive Treating Comm ents Source Name Type Date Date Clinician NO KNOWN Drug Active [facility] ALLERGIE Class ity of S [facility] NO KNOWN Allergy Active [facility] No Known No Known Active Memori a Medicati Medicati l on on [place] [facility] Acetamin drug Active Headache [facility] ophen allergy Physici TABS ans Family History Family Member Diagnosis Comments Start Date Stop Date Source Other Diabetes [facility] natural son Family history of [place] [...] Date Stop Date Quantity Comments Source [facility] Alcohol Frequency History [facility] Health Alcohol Std Drinks History [facility] Alcohol Binge Gender identity [facility] Sexual orientation [facility] Cigarettes smoked 2023-04-23 2023-04-23 [facility] current (pack per 00:00:00 00:00:00 day) - Reported Cigarette 2023-04-23 2023-04-23 [facility] pack-years 00:00:00 00:00:00 Tobacco use and 2023-01-06 2023-01-06 Smokeless tobacco Me thodist exposure 00:00:00 00:00:00 non-user Hospital Alcohol intake 2023-01-06 2023-01-06 Current non-drinker M ethodist 00:00:00 00:00:00 of alcohol Hospital (finding) History of Social 2022-11-19 2022-11-19 [facility] function 00:00:00 00:00:00 Medical Center Tobacco Comment 2022-11-14 2022-11-14 Pt quit few years [facility] 00:00[facility]00 00[facility]:00 ago [facility] Exposure to 2022-09-18 2022-09-28 Not sure [facility] SARS-CoV-2 (event) 00:00:00 14:46:00 Alcohol Comment 2021-10-18 2021-10-18 Ocassionally [facility] 00:00:00 00:00:00 Social History 2021-10-02 2021-10-[address] [facility] Richa brownfaina 17:59:17 17:59:17 History of tobacco 1994-10-02 2021-02-03 Snuff User [facility] use 00:00:00 00:00:00 Sex Assigned At [address] [facility] 00[facility] Smoking Status Start Date Stop Date Source Tobacco smoking [facility] xa consumption unknown Medical Bran ch Never Smoker [facility] Medical Ce nter Current Smoker 2022-06-22 00:00:00 [facility] Tobacco smoking status 2022-05-17 04:42:15 2022-05-17 Memor mague Cedeño 04:42:15 Medications Ordered Filled Start Stop Current Ordering Indication Dosage Frequency Signature Comments Components Source Medication Medication Date Date Medication? Clinician (SIG) Name Name losartan Yes 25mg QD Take 25 mg UT (Cozaar) 25 9-12 by mouth 1 He alth MG tablet 14:32: (one) time 06 each day. losartan Yes 25mg QD Take 25 mg UT (Cozaar) 25 9-12 by mouth 1 He alth MG tablet 14:32: (one) time 06 each day. Rimegepant Yes [id number] 75mg Take 75 mg UT Sulfate 9-12 by mouth Health (Nurtec) 75 00:00: continuous MG tablet 00 ly if dispersible needed (migraines ). Rimegepant 0 Yes [id number] 75mg Take 75 mg UT Sulfate 75 9-12 by mouth Healt h MG tablet 00:00: if needed dispersible 00 (migraines ). Rimegepant 2022-0 Yes [id number] 75mg Take 75 mg UT Sulfate 9-12 by mouth Health (Nurtec) 75 00:00: continuous MG tablet 00 ly if dispersible needed (migraines ). Rimegepant 2022-0 Yes [id number] 75mg Take 75 mg UT Sulfate 75 9-12 by mouth Healt h MG tablet 00:00: if needed dispersible 00 (migraines ). ondansetron Yes 4mg Take 4 mg U T ODT 9-05 by mouth Health (Zofran-ODT 00:00: every 8 ) 4 MG 00 (eight) disintegrat hours if ing tablet needed. sucralfate 0 Yes 1g Q.5D Take 1 g UT (Carafate) 8-31 by mouth Healt h 1 g tablet 00:00: in the 00 morning and 1 g before bedtime. dicyclomine Yes 20mg Take 20 mg UT (Bentyl) 20 8-31 by mouth Heal th MG tablet 00:00: every 8 00 (eight) hours if needed. HYDROcodone 2022- No 1{tbl} 1 tablet, Univers -acetaminop 03-27 Oral, ity of hen (NORCO) 01:30: 00:52 [place] 10[place]325 mg 00 :00 dose, On Medica l tablet 1 Tue Branch tablet 03/26/23 at 2030, DAKSHA iopamidol 2022- No [id number] 100mL 100 mL, Univers (ISOVUE 03-27 Intravenou ity o f 370-500 mL) 00:30: 00:30 s, ONCE, 1 [place] injection 00 :00 dose, On Medica l 100 mL Tue Branch 03/26/23 at 1930, Routine amLODIPine amLODIPine 0 No 1{table QD amLODIPine Besylate 5 Besylate 5 8-16 t} Besylate 5 MG MG 00:00: MG 00 amLODIPine amLODIPine 2022-0 No 1{table QD amLODIPine Besylate 5 Besylate 5 8-16 t} Besylate 5 MG MG 00:00: MG 00 amLODIPine amLODIPine 2022-0 No 1{table QD amLODIPine Besylate 5 Besylate 5 8-16 t} Besylate 5 MG MG 00:00: MG 00 amLODIPine amLODIPine 2022-0 No 1{table QD amLODIPine Besylate 5 Besylate 5 8-16 t} Besylate 5 MG MG 00:00: MG 00 amLODIPine amLODIPine 2022-0 No 1{table QD amLODIPine Besylate 5 Besylate 5 8-16 t} Besylate 5 MG MG 00:00: MG 00 amLODIPine amLODIPine 2022-0 No 1{table QD amLODIPine Besylate 5 Besylate 5 8-16 t} Besylate 5 MG MG 00:00: MG 00 amLODIPine amLODIPine 2022-0 No 1{table QD amLODIPine Besylate 5 Besylate 5 8-16 t} Besylate 5 MG MG 00:00: MG 00 amLODIPine amLODIPine 2022-0 No 1{table QD amLODIPine Besylate 5 Besylate 5 8-16 t} Besylate 5 MG MG 00:00: MG 00 acetaminoph 2022-0 2022- No [id number] 1{tbl} Take 1 U nivers en-codeine 03-26 tablet by ity of 300-30 mg 00:00: 04:59 mouth [place] tablet 00 :00 every 6 Medical (six) Branch hours as needed for Pain (scale 7-10) for up to 7 days. Indication s: acute pain amLODIPine amLODIPine 2022-0 No 1{table QD amLODIPine Besylate 5 Besylate 5 8-14 t} Besylate 5 MG MG 00:00: MG 00 amLODIPine amLODIPine 2022-0 No 1{table QD amLODIPine Besylate 5 Besylate 5 8-14 t} Besylate 5 MG MG 00:00: MG 00 amLODIPine amLODIPine 2022-0 No 1{table QD amLODIPine Besylate 5 Besylate 5 8-14 t} Besylate 5 MG MG 00:00: MG 00 amLODIPine amLODIPine 2022-0 No 1{table QD amLODIPine Besylate 5 Besylate 5 8-14 t} Besylate 5 MG MG 00:00: MG 00 amLODIPine amLODIPine 2022-0 No 1{table QD amLODIPine Besylate 5 Besylate 5 8-14 t} Besylate 5 MG MG 00:00: MG 00 amLODIPine amLODIPine 2022-0 No 1{table QD amLODIPine Besylate 5 Besylate 5 8-14 t} Besylate 5 MG MG 00:00: MG 00 amLODIPine amLODIPine 2022-0 No 1{table QD amLODIPine Besylate 5 Besylate 5 8-14 t} Besylate 5 MG MG 00:00: MG 00 amLODIPine amLODIPine 2022-0 No 1{table QD amLODIPine Besylate 5 Besylate 5 8-14 t} Besylate 5 MG MG 00:00: MG 00 ciprofloxac 2022-0 3- No [id number] 10[drp] Q.5D Administer UT in-dexameth 03-13 [id number] 10 drops He alth asone 00:00: 04:59 into the (Ciprodex) 00 :00 left ear otic in the suspension morning and 10 drops in the evening. Do all this for 7 days. acetaminoph 2022- No [id number] 1{tbl} Q6H Take 1 UT en-codeine 8-02 08-08 tablet by Lucila [facility] (Tylenol w/ 00:00: 04:59 mouth Codeine #3) 00 :00 every 6 300-30 MG (six) tablet hours if needed for severe pain for up to 5 days. acetaminoph Yes 2 tab, PO, Memoria en/butalbit 7-11 Q4Hnow, X l al/caffeine 19:39: 7 day, # He rmann 325 mg-50 00 84 tab, 1 mg-40 mg Refill(s), oral tablet Pharmacy: [facility] #[id number], 190.5, cm, 02/14/23 11:02:00 CDT, Height, 157.6, kg, 02/14/23 11:02:00 CDT, Weight naproxen Yes 500 mg = 1 Mem oria 500 mg oral 7-11 tab, PO, l tablet 19:39: Q12H, X 14 Kelly nn day, # 28 tab, 1 Refill(s), Pharmacy: [facility] #[id number], 190.5, cm, 02/14/23 11:02:00 CDT, Height, 157.6, kg, 02/14/23 11:02:00 CDT, Weight gabapentin Yes 600 mg = 2 M emoria 300 mg oral 7-11 cap, PO, l capsule 19:38: Q8H-06, # Kelly nn 00 84 cap, 1 Refill(s), Pharmacy: [facility] #[id number], 190.5, cm, 02/14/23 11:02:00 CDT, Height, 157.6, kg, 02/14/23 11:02:00 CDT, Weight methocarbam Yes 750 mg = 1 Memoria ol 750 mg 7-11 tab, PO, l oral tablet 19:38: Q8H, X 14 H ermann 00 day, # 42 tab, 1 Refill(s), Pharmacy: [facility] #[id number], 190.5, cm, 02/14/23 11:02:00 CDT, Height, 157.6, kg, 02/14/23 11:02:00 CDT, Weight oxyCODONE 5 2022-0 Yes 5 mg = 1 Me moria mg oral 7-11 tab, PO, l tablet, 18:06: Q6H, PRN Sadi n immediate 00 Pain, Take release one tablet by mouth every six hours as needed for severe pain for seven days., X 7 day, # 28 tab, 0 Refill(s), Pharmacy: [facility] #[id number], 190.5, cm, 02/14/23 11:02:00 CDT, Height, 157.6, kg, 02/14/23 11:02:00 C... amLODIPine 2022-0 Yes 5 mg = 1 Mem oria 5 mg oral 7-11 tab, PO, l tablet 15:24: Daily, # [place] 00 30 tab, 0 Refill(s), Pharmacy: [facility] #[id number], 190.5, cm, 02/14/23 11:02:00 CDT, Height, 157.6, kg, 02/14/23 11:02:00 CDT, Weight losartan 50 2022-0 Yes 100 mg = 2 Memoria mg oral 7-11 tab, PO, l tablet 15:24: Daily, # [place] 00 60 tab, 0 Refill(s), Pharmacy: [facility] #[id number], 190.5, cm, 02/14/23 11:02:00 CDT, Height, 157.6, kg, 02/14/23 11:02:00 CDT, Weight amLODIPine 3-0 Yes 5mg QD Take 5 mg UT (Norvasc) 02-19 by mouth 1 He alth MG tablet 00:00: (one) time 00 each day. amLODIPine 3-0 2023- No 5mg QD Take 5 mg U T (Norvasc) 5 7- 09-12 by mouth 1 H ealth MG tablet 00:00: 00:00 (one) time 00 :00 each day. Tylenol 3-0 Yes 500 mg, Memoria 7-06 PO, PRN, 0 l 16:15: Refill(s) [place] 00 ibuprofen 2022-0 Yes 600 mg, Memor ia 7-06 PRN, 0 l 16:14: Refill(s) [place] Ondansetron Ondansetron 2022-0 No 1{table Ondansetro HCl 8 MG HCl 8 MG 6-26 t_as_ne n HCl 8 MG 00:00: eded} 00 Ondansetron Ondansetron 2022-0 No 1{table Ondansetro HCl 8 MG HCl 8 MG 6-26 t_as_ne n HCl 8 MG 00:00: eded} 00 Ondansetron Ondansetron 3-0 No 1{table Ondansetro HCl 8 MG HCl 8 MG 6-26 t_as_ne n HCl 8 MG 00:00: eded} 00 Ondansetron Ondansetron 2022-0 No 1{table Ondansetro HCl 8 MG HCl 8 MG 6-26 t_as_ne n HCl 8 MG 00:00: eded} 00 Ondansetron Ondansetron 2022-0 No 1{table Ondansetro HCl 8 MG HCl 8 MG 6-26 t_as_ne n HCl 8 MG 00:00: eded} 00 Ondansetron Ondansetron 3-0 No 1{table Ondansetro HCl 8 MG HCl 8 MG 6-26 t_as_ne n HCl 8 MG 00:00: eded} 00 Ondansetron Ondansetron 3-0 No 1{table Ondansetro HCl 8 MG HCl 8 MG 6-26 t_as_ne n HCl 8 MG 00:00: eded} 00 Ondansetron Ondansetron 3-0 No 1{table Ondansetro HCl 8 MG HCl 8 MG 6-26 t_as_ne n HCl 8 MG 00:00: eded} 00 lisinopriL 2022-0 Yes 40mg QD Take 1 Metho di (PRINIVIL) 5-30 tablet (40 st 40 mg 18:25: mg total) Hospita tablet 02 by mouth l daily. traMADoL 2022-0 Yes [id number] 50mg Q24H Take 1 Method i (ULTRAM) [...] by mouth l daily. traMADoL 2023-0 Yes [id number] 50mg Q24H Take 1 Method i (ULTRAM) [...] by mouth l daily. traMADoL 2023-0 Yes [id number] 50mg Q24H Take 1 Method i (ULTRAM) [...] by mouth l daily. traMADoL 2023-0 Yes [id number] 50mg Q24H Take 1 Method i (ULTRAM) [...] by mouth l daily. traMADoL 2023-0 Yes [id number] 50mg Q24H Take 1 Method i (ULTRAM) [...] by mouth l daily. traMADoL 2023-0 Yes [id number] 50mg Q24H Take 1 Method i (ULTRAM) [...] by mouth l daily. traMADoL 2023-0 Yes [id number] 50mg Q24H Take 1 Method i (ULTRAM) [...] by mouth l daily. traMADoL 2023-0 Yes [id number] 50mg Q24H Take 1 Method i (ULTRAM) [...] by mouth l daily. traMADoL 2023-0 Yes [id number] 50mg Q24H Take 1 Method i (ULTRAM) [...] by mouth l daily. traMADoL 2023-0 Yes [id number] 50mg Q24H Take 1 [facility] (ULTRAM) [...] 2023-0 Yes 20mg QD Take 1 Meth uabree (BENTYL) 20 5-30 tablet (20 st mg [...] by mouth l daily. traMADoL 2023-0 Yes 95044 50mg Q24H Take 1 [facility] (ULTRAM) [...] by mouth l daily. traMADoL 2023-0 Yes [id number] 50mg Q24H Take 1 [facility] i (ULTRAM) [...] yumiko 02 by mouth l daily. ondansetron 2022-0 Yes 4mg Q8H Take 1 Meth aubree ODT 5-30 tablet (4 st (ZOFRAN-ODT 18:25: mg total) H [facility]spita ) 4 MG 02 by mouth l disintegrat every 8 ing tablet (eight) hours as needed for nausea or vomiting. amLODIPine 2022-0 3- No 5mg QD Take [...] times a day for 5 days. metroNIDAZO 2022-2022- No 500mg Q.89251981 Take 1 [facility] (FlagyL) 01-07- [id number] tablet st 500 MG 00:00: 04:59 3D (500 mg [facility] tablet 00 :00 total) by l mouth 3 (three) times a day for 5 days. ciprofloxac 0 2022- No 500mg Q.5D Take 1 Me thodi in (Cipro) 01-[address] 500 MG 00:00: 04:59 (500 mg [facility]osp[facility] tablet 00 :00 total) by l mouth 2 (two) times a day for 5 days. metroNIDAZO 2023-0 2023- No 500mg Q.40060024 Take 1 [facility] (FlagyL) 01-[id number] 500 MG 00:00: 04:59 3D [...] 5 days. metroNIDAZO 2023-0 2023- No 500mg Q.57707136 Take 1 [facility] (FlagyL) 01-[id number] 500 MG 00:00: 04:59 3D [...] 5 days. metroNIDAZO 2023-0 2023- No 500mg Q.13039107 Take 1 [facility] (FlagyL) 01-[id number] 500 MG 00:00: 04:59 3D [...] 5 days. metroNIDAZO 2023-0 2023- No 500mg Q.47339837 Take 1 [facility] (FlagyL) 01-07- [id number] tablet st 500 MG 00:00: 04:59 3D [...] 5 days. metroNIDAZO 2023-0 2023- No 500mg Q.06565203 Take 1 [facility] (FlagyL) 01-07- [id number] tablet st 500 MG 00:00: 04:59 3D [...] 5 days. metroNIDAZO 2023-0 2023- No 500mg Q.03054144 Take 1 [facility] (FlagyL) 01-[id number] 500 MG 00:00: 04:59 3D [...] 5 days. metroNIDAZO 2023-0 2023- No 500mg Q.31599499 Take 1 [facility] (FlagyL) 01-07- [id number] tablet st 500 MG 00:00: 04:59 3D [...] 5 days. metroNIDAZO 2023-0 2023- No 500mg Q.07745024 Take 1 [facility] (FlagyL) 01-07- [id number] tablet st 500 MG 00:00: 04:59 3D [...] 5 days. metroNIDAZO 2023-0 2023- No 500mg Q.[id number] Take 1 [facility] (FlagyL) 01-[id number] 500 MG 00:00: 04:59 3D [...] 5 days. metroNIDAZO 2023-0 2023- No 500mg Q.[id number] Take 1 [facility] (FlagyL) 01-07- [id number] tablet st 500 MG 00:00: 04:59 3D [...] for 5 days. metroNIDAZO 2022- No 500mg Q.80051476 Take 1 [facility] (FlagyL) 01-[id number] 500 MG 00:00: 04:59 3D (500 mg Hosp[facility] tablet 00 :00 total) by l mouth 3 (three) times a day for 5 days. butalbital- 2022- No 1{tbl} Q6H Take 1 M ethodi acetaminoph -07 02- tablet by [facility] 00:00: 04:59 mouth Hospita (FIORICET) 00 :00 every 6 l 50-325-40 (six) mg per hours as tablet needed for headaches for up to 2 days. butalbital- 2022- No 1{tbl} Q6H Take 1 M ethodi acetaminoph -07 02- tablet by [facility] 00:00: 04:59 mouth Hospita (FIORICET) 00 :00 every 6 l 50-325-40 (six) mg per hours as tablet needed for headaches for up to 2 days. butalbital- 2022- No 1{tbl} Q6H Take 1 M ethodi acetaminoph 01-07 tablet by [facility] 00:00: 04:59 mouth [facility]ospita (FIORICET) 00 :00 every 6 l 50-325-40 (six) mg per hours as tablet needed for headaches for up to 2 days. butalbital- 2022- No 1{tbl} Q6H Take 1 M ethodi acetaminoph 01-07- tablet by [facility] 00:00: 04:59 mouth [facility]ospita (FIORICET) 00 :00 every 6 l 50-325-40 (six) mg per hours as tablet needed for headaches for up to 2 days. butalbital- 2022- No 1{tbl} Q6H Take 1 M ethodi acetaminoph -07 02- tablet by [facility] 00:00: 04:59 mouth [facility]ospita (FIORICET) 00 :00 every 6 l 50-325-40 (six) mg per hours as tablet needed for headaches for up to 2 days. butalbital- 2022- No 1{tbl} Q6H Take 1 M ethodi acetaminoph 5-29 06-01 tablet by [facility] 00:00: 04:59 mouth [facility]ospita (FIORICET) 00 :00 every 6 l 50-325-40 (six) mg per hours as tablet needed for headaches for up to 2 days. butalbital- 2022- No 1{tbl} Q6H Take 1 M ethodi acetaminoph 5-29 06-01 tablet by [facility] 00:00: 04:59 mouth [facility]ospita (FIORICET) 00 :00 every 6 l 50-325-40 (six) mg per hours as tablet needed for headaches for up to 2 days. butalbital- 2022- No 1{tbl} Q6H Take 1 M ethodi acetaminoph 5-29 06-01 tablet by [facility] 00:00: 04:59 mouth [facility]ospita (FIORICET) 00 :00 every 6 l 50-325-40 (six) mg per hours as tablet needed for headaches for up to 2 days. butalbital- 2022- No 1{tbl} Q6H Take 1 M ethodi acetaminoph 5-29 06-01 tablet by [facility] 00:00: 04:59 mouth [facility]ospita (FIORICET) 00 :00 every 6 l 50-325-40 (six) mg per hours as tablet needed for headaches for up to 2 days. butalbital- 2022- No 1{tbl} Q6H Take 1 M ethodi acetaminoph 5-29 06-01 tablet by [facility] 00:00: 04:59 mouth [facility]ospita (FIORICET) 00 :00 every 6 l 50-325-40 (six) mg per hours as tablet needed for headaches for up to 2 days. butalbital- 2022- No 1{tbl} Q6H Take 1 M ethodi acetaminoph 5-29 06-01 tablet by [facility] 00:00: 04:59 mouth [facility]ospita (FIORICET) 00 :00 every 6 l 50-325-40 (six) mg per hours as tablet needed for headaches for up to 2 days. butalbital- 2022-0 2022- No 1{tbl} Q6H Take 1 M ethodi acetaminoph 01-07 tablet by [facility] 00:00: 04:59 mouth Hospita (FIORICET) 00 :00 every 6 l 50-325-40 (six) mg per hours as tablet needed for headaches for up to 2 days. ondansetron 0 Yes [address] [facility] [address] (Zofran) 8 4-06 as needed [facility] tablet 16:50: [address] ondansetron 2022-0 Yes [address] [facility] [address] (Zofran) 8 4-06 as needed [facility] tablet 16:50: [address] ondansetron 0 Yes [address] (Zofran) 8 4-06 as needed [facility] tablet 16:50: [address] ondansetron 0 Yes [address] (Zofran) 8 4-06 as needed [facility] tablet 16:50: [address] ondansetron 0 Yes [address] (Zofran) 8 4-06 as needed [facility] tablet 16:50: [address] ondansetron 0 Yes [address] (Zofran) 8 4-06 as needed [facility] tablet 16:50: [address] ondansetron 2022-0 Yes [address] (Zofran) 8 4-06 as needed [facility] tablet 16:50: [address] ondansetron 2022-0 Yes [address] (Zofran) 8 4-06 as needed [facility] tablet 16:50: [address] ondansetron 2022-0 Yes [address] (Zofran) 8 4-06 as needed [facility] tablet 16:50: [address] ondansetron 2022-0 Yes [address] (Zofran) 8 4-06 as needed [facility] tablet 16:50: [address] ondansetron 2022-0 Yes [address] (Zofran) 8 4-06 as needed [facility] tablet 16:50: [address] ondansetron 0 Yes [address] (Zofran) 8 4-06 as needed [facility] tablet 16:50: [address] ondansetron 2022-0 Yes [address] (Zofran) 8 4-06 as needed [facility] tablet 16:50: [address] ondansetron 2022-0 Yes [address] (Zofran) 8 4-06 as needed [facility] tablet 16:50: [address] traMADol 0 2022- No [id number] 50mg Q6H Take 1 [facility] (Ultram) 50 09-28 9106 tablet (50 H ealth MG tablet 00:00: 05:59 mg total) 00 :00 by mouth every 6 (six) hours if needed for severe pain for up to 5 days. omeprazole 2022-0 Yes 1 capsule [facility] [...] 2-16 S pirit one) one) 00:00: - [facility] Kenalog Kenalog 3-0 No 40mg Common (Triamcinol (Triamcinol 2-16 S pirit one) one) 00:00: - [facility] Kenalog Kenalog 3-0 No 40mg Common (Triamcinol (Triamcinol 2-16 S pirit one) one) 00:00: - [facility] Jaci Beatty 2022-0 No 40mg Common (Triamcinol (Triamcinol 2-16 S pirit one) one) 00:00: - [facility] Jaci Beatty 2022-0 No 40mg Common (Triamcinol (Triamcinol 2-16 S pirit one) one) 00:00: - [facility] Jaci Beatty 2022-0 No 40mg Common (Triamcinol (Triamcinol 2-16 S pirit one) one) 00:00: - [facility] Jaci Beatty 2022-0 No 40mg Common (Triamcinol (Triamcinol 2-16 S pirit one) one) 00:00: - [facility] Jaci Beatty 2022-0 No 40mg Common (Triamcinol (Triamcinol 2-16 S pirit one) one) 00:00: - [facility] omeprazole 0 Yes [facility] (PriLOSEC) 2-[address] 00:00: capsule 00 losartan-hy 0 Yes [facility] droCHLOROth -16 Health iazide 00:00: (Hyzaar) 00 100-25 MG tablet omeprazole 2022-0 Yes [facility] (PriLOSEC) -[address] 00:00: capsule 00 losartan-hy 2022-0 Yes [facility] droCHLOROth 16 Health iazide 00:00: (Hyzaar) 00 100-25 MG tablet omeprazole 2022-0 2022- No [facility] (PriLOSEC) 09-[address] 00:00: 00:00 capsule 00 :00 losartan-hy 2022-0 3- No [facility] droCHLOROth 09-27 Health iazide 00:00: 00:00 (Hyzaar) 00 :00 100-25 MG tablet ondansetron 2022-0 2022- No 105 4mg [facility] (Zofran) 09-18 Health tablet 4 mg 16:42: 16:41 42 :42 traMADol 2022-0 2022- No [id number] 50mg Q6H Take 1 [facility] (Ultram) 50 [...] Center in the morning. ciprofloxac 2022-2022- No [id number] 10[drp] Q.5D Administer [facility] in-dexameth 09-07 10013 10 drops He alth asone 00:00: 05:59 [...] faina capsule 00 cap, 0 Refill(s), Pharmacy: [facility] #[id number], 190.5, cm, 05/16/22 23:38:00 CDT, Height, 159.001, kg, 05/16/22 23:38:00 CDT, Weight senna 8.6 2021-08 Yes 8.6 mg = 1 Me moria mg oral 0-08 tab, PO, l tablet 14:59: Q12H, X 7 Sadi n 00 day, # 14 tab, 0 Refill(s), Pharmacy: [facility] #[id number], 190.5, cm, 05/16/22 23:38:00 CDT, Height, 159.001, kg, 05/16/22 23:38:00 CDT, Weight polyethylen 2021-08 Yes 17 gm, PO, Memoria e glycol 0-08 BID, X 14 l 3350 oral 14:59: day, # 255 He rmann powder for 00 gm, 0 reconstitut Refill(s), ion Pharmacy: [facility] #[id number], 190.5, cm, 05/16/22 23:38:00 CDT, Height, 159.001, kg, 05/16/22 23:38:00 CDT, Weight docusate 2021-08 Yes 100 mg = 1 Mem oria sodium 100 0-08 cap, PO, l mg oral 14:59: Q12H, # 14 Herm faina capsule 00 cap, 0 Refill(s), Pharmacy: [facility] #[id number], 190.5, cm, 05/16/22 23:38:00 CDT, Height, 159.001, kg, 05/16/22 23:38:00 CDT, Weight senna 8.6 2021-08 Yes 8.6 mg = 1 Me moria mg oral 0-08 tab, PO, l tablet 14:59: Q12H, X 7 Sadi n 00 day, # 14 tab, 0 Refill(s), Pharmacy: [facility] #[id number], 190.5, cm, 05/16/22 23:38:00 CDT, Height, 159.001, kg, 05/16/22 23:38:00 CDT, Weight polyethylen 2021-08 Yes 17 gm, PO, Memoria e glycol 0-08 BID, X 14 l 3350 oral 14:59: day, # 255 He rmann powder for 00 gm, 0 reconstitut Refill(s), ion Pharmacy: [facility] #[id number], 190.5, cm, 05/16/22 23:38:00 CDT, Height, 159.001, kg, 05/16/22 23:38:00 CDT, Weight celecoxib 2021-08 Yes 200 mg = 1 Me moria 200 mg oral 0-08 cap, PO, l capsule 13:50: BID, # 28 Kelly nn 00 cap, 0 Refill(s), Pharmacy: [facility] #[id number], 190.5, cm, 05/16/22 23:38:00 CDT, Height, 159.001, kg, 05/16/22 23:38:00 CDT, Weight celecoxib 2021-08 Yes 200 mg = 1 Me moria 200 mg oral 0-08 cap, PO, l capsule 13:50: BID, # 28 Kelly nn 00 cap, 0 Refill(s), Pharmacy: [facility] #[id number], 190.5, cm, 05/16/22 23:38:00 CDT, Height, 159.001, kg, 05/16/22 23:38:00 CDT, Weight Omnipaque 2021-08 No 100 mL, Memor ia 350 mg/mL 0-08 Route: l 02:52: IVP, Drug [place] Form: SOLN, Dosing Weight 159.001, kg, ONCALL, STAT, Start date: 05/18/22 21:52:00 CDT, Duration: 1 doses or times, Dose = 2.2ml/kg, Max dose = 100ml -- "To be infused by Radiology Staff ONLY" Omnipaque 2021-08 No 100 mL, Memor ia 350 mg/mL 0-08 Route: l 02:52: IVP, Drug [place] Form: SOLN, Dosing Weight 159.001, kg, ONCALL, STAT, Start date: 05/18/22 21:52:00 CDT, Duration: 1 doses or times, Dose = 2.2ml/kg, Max dose = 100ml -- "To be infused by Radiology Staff ONLY" ketOROLAC 2021-08 No 4 days. David katarzyna 15 mg/mL 0-08 l injectable 01:23: [place] solution 00 ketOROLAC 2021-08 No 4 days. David katarzyna 15 mg/mL 0-08 l injectable 01:23: [place] solution 00 heparin 2021-08 No 5,000 Memoria 5000 0-08 unit, 1 l units/mL 01:00: mL, Route: Her jones injectable 00 SUB-Q, solution Drug form: INJ, Q8H, Dosing Weight 159.001, kg, Start date: 05/18/22 20:00:00 CDT, Duration: 30 day, Stop date: 06/17/22 16:00:00 [employer], 0 heparin 2021-08 No 5,000 Memoria 5000 0-08 unit, 1 l units/mL 01:00: mL, Route: Her jones injectable 00 SUB-Q, solution Drug form: INJ, Q8H, Dosing Weight 159.001, kg, Start date: 05/18/22 20:00:00 CDT, Duration: 30 day, Stop date: 06/17/22 16:00:00 [employer] 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 WASTE: F/P - Black; E - Municipal Trash Bin Omnipaque 2021-08 No Notes: Memori a 350 mg/mL 0-07 (same l 21:28: as:Omnipaq [place] 00 ue 350). WASTE: F/P - Black; E - Municipal Trash Bin heparin 2021-08 No Notes: Memoria 5000 0-07 porcine l units/mL 21:00: heparin Sadi n injectable 00 solution heparin 2021-08 No Notes: Memoria 5000 0-07 porcine l units/mL 21:00: heparin Sadi n injectable 00 solution tramadol 50 2021-08 No Notes: Not Memoria mg oral 0-07 to exceed l tablet 17:20: 400mg/day. Kelly nn 00 (Same As: Ultram) Tylenol 2021-08 No Notes: Do Memor ia 0-07 not exceed l 17:20: 4 gm/day. [place] (Same as: Tylenol) tramadol 50 2021-08 No Notes: Not Memoria mg oral 0-07 to exceed l tablet 17:20: 400mg/day. Kelly nn 00 (Same As: Ultram) Tylenol 2021-08 No Notes: Do Memor ia 0-07 not exceed l 17:20: 4 gm/day. [place] 00 (Same as: Tylenol) tramadol 50 2021-08 No Notes: Not Memoria mg oral 0-07 to exceed l tablet 16:55: 400mg/day. Kelly nn (Same As: Ultram) tramadol 50 2021-08 No Notes: Not Memoria mg oral 0-07 to exceed l tablet 16:55: 400mg/day. Kelly nn (Same As: Ultram) tramadol 50 2021-08 Yes 50 mg = 1 M emoria mg oral 0-07 tab, PO, l tablet 12:42: Q6H, PRN [place] 00 Pain, not to exceed 400 mg/day, X 5 day, # 20 tab, 0 Refill(s), Pharmacy: [facility] #[id number], 190.5, cm, 05/16/22 23:38:00 CDT, Height, 159.001, kg, 05/16/22 23:38:00 CDT, Weight tramadol 50 2021-08 Yes 50 mg = 1 M emoria mg oral 0-07 tab, PO, l tablet 12:42: Q6H, PRN [place] 00 Pain, not to exceed 400 mg/day, X 5 day, # 20 tab, 0 Refill(s), Pharmacy: [facility] #[id number], 190.5, cm, 05/16/22 23:38:00 CDT, Height, 159.001, kg, 05/16/22 23:38:00 CDT, Weight lisinopril 2021-08 No Notes: Memor ia 0-06 (Same as: l 17:27: Prinivil, [place] Zestril) lisinopril 2021-08 No Notes: Memor ia 0-06 (Same as: l 17:27: Prinivil, [place] 00 Zestril) docusate 2021-08 No Notes: Memoria 0-06 (Same as: l 14:00: Colace) [place] 00 (Do Not Crush) senna 2021-08 No Notes: Memoria 0-06 (Same as: l 14:00: Senokot) [place] 00 ofloxacin 2021-08 No Notes: Memori a otic 0.3% 0-06 (Same as: l solution 14:00: Floxin [place] 00 Otic) pantoprazol 2021-08 No Notes: David katarzyna e 0-06 Tablet l 14:00: should not [place] 00 be chewed or crushed. (Same as: Protonix) topiramate 2021-08 No Notes: Memor ia 0-06 (Same As: l 14:00: Topamax) [place] 00 "Do Not Crush" [facility] 3:Reproduc tive risk Hazardous Drug -- Refer to safe handling procedure PPE [facility] docusate 2021-08 No Notes: Memoria 0-06 (Same as: l 14:00: Colace) [place] 00 (Do Not Crush) senna 2021-08 No Notes: Memoria 0-06 (Same as: l 14:00: Senokot) [place] 00 ofloxacin 2021-08 No Notes: Memori a otic 0.3% 0-06 (Same as: l solution 14:00: Floxin [place] 00 Otic) pantoprazol 2021-08 No Notes: David [...] (Same as l 05:00: Ancef) [place] 00 ceFAZolin 2021-08 No Notes: Memori a (SCIP) 0-06 (Same as l 05:00: Ancef) [place] 00 Adult 2021-08 No 650 mg = 2 Memori a Aspirin 325 0-06 tab, PO, l mg oral 04:57: Q4H, 0 [place] tablet 00 Refill(s) Adult 2021-08 No 650 mg = 2 Memori a Aspirin 325 0-06 tab, PO, l mg oral 04:57: Q4H, 0 [place] tablet 00 Refill(s) Aspercreme 2021-08 Yes 1 patch, Mem oria Odor Free 0-06 TOP, l Max 04:56: Daily, 0 [place] Strength 00 Refill(s) Lidocaine Patches X-Large 4% topical film Aspercreme 2021-08 Yes 1 patch, Mem oria Odor Free 0-06 TOP, l Max 04:56: Daily, 0 [place] Strength 00 Refill(s) Lidocaine Patches X-Large 4% topical film Saline 2021-08 No Notes: Memoria Flush 0.9% 0-06 (Same as: l 02:00: BD [place] 00 Posiflush) Keppra 500 2021-08 No Notes: [...] and stir before giving. (Same As: Carafate) Saline 2021-08 No Notes: Memoria Flush 0.9% [...] Rate: 75 l 0.9% IV 00:53: ml/hr, [place] 1,000 mL 00 Infuse over: 13.3 hr, Route: IV, Dosing Weight 159.091 kg, Total Volume: 1,000, Start date: 05/16/22 19:53:00 CDT, Duration: 30 day, Stop date: 06/15/22 19:52:00 CDT, BSA: 2.93 m2, 0 Sodium 2021-08 No 1,000 mL, Memori a [...] 0-06 tab, PO, l tablet 00:52: Before [place] 00 Meals & Bedtime, # 120 tab, [...] tab, PO, l tablet 00:52: Q6H, PRN [place] 00 Pain, # 40 tab, 0 Refill(s) [...] l oral tablet 00:52: Daily, # 5 [place] 00 tab, 0 Refill(s) ondansetron 2021-08 No [...] 5 Kelly nn 00 mL, 0 Refill(s) amoxicillin 2021-08 No 1 tab, PO, [...] tab, PO, l tablet 00:52: Daily, # [place] 00 30 tab, 3 Refill(s) ofloxacin 2021-08 No 5 drp, Memori a otic 0.3% 0-06 BOTH EARS, l solution 00:52: BID, # 5 Kelly nn 00 mL, 0 Refill(s) topiramate 2021-08 Yes 25 mg = 1 Me moria 25 mg oral 0-06 tab, PO, l tablet 00:52: BID, # 120 Kelly nn 00 tab, 1 Refill(s) lisinopril 2021-08 Yes 20 mg = 1 Me moria 20 mg oral 0-06 tab, PO, l tablet 00:52: Daily, # [place] 00 30 tab, 0 Refill(s) pantoprazol 2021-08 Yes TAKE 1 David katarzyna e 40 mg 0-06 TABLET BY l oral 00:52: MOUTH [place] [facility] 00 EVERY DAY coated tablet sucralfate 2021-08 Yes 1 gm = 1 Mem oria 1 g oral 0-06 tab, PO, l tablet 00:52: Before [place] 00 Meals & Bedtime, # 120 tab, 3 Refill(s) Sodium 2021-08 No 1,000 mL, Memori [...] Size: 4 mg Product Wasted: ___ mg [place] 2021-08 No Notes: Do Memoria 10/325 oral 0-06 not exceed l tablet 00:45: 4gm/day of Kelly acetaminop hen. (Same as: [place] 325/10) Dilaudid 2021-08 No 0.5 mg, Memori [...] 1.4% 0-06 Chlorasept l spray 00:45: ic [place] (Same as: Chlorasept ic, Sore Throat [place]) WASTE: F/P - Black; E - Municipal Trash Bin bisacodyl 2021-08 No Notes: Memori a 0-06 (Same As: l 00:45: Dulcolax, Bisco-Lax) Saline 2021-08 No Notes: Memoria Flush 0.9% 0-06 (Same as: l 00:45: BD Posiflush) Sodium 2021-08 No 1,000 mL, Memori a Chloride 0-06 Rate: 50 l 0.9% IV 00:45: ml/hr, [place] 1,000 mL 00 Infuse over: 20 hr, [...] Size: 4 mg Product Wasted: ___ mg [place] 2021-08 No Notes: Do Memoria 10/325 oral 0-06 not exceed l tablet 00:45: 4gm/day of Kelly acetaminop hen. (Same as: [place] 325/10) Dilaudid 2021-08 No 0.5 mg, Memori [...] 1.4% 0-06 Chlorasept l spray 00:45: ic [place] (Same as: Chlorasept ic, Sore Throat [place]) WASTE: F/P - Black; E - Municipal Trash Bin bisacodyl 2021-08 No Notes: Memori a 0-06 (Same As: l 00:45: Dulcolax, Bisco-Lax) Saline 2021-08 No Notes: Memoria Flush 0.9% 0-06 (Same as: l 00:45: BD Posiflush) caffeine 2021-08 No Notes: Memoria 200 mg oral 0-05 Same as: l tablet 23:56: No Doz) caffeine 2021-08 No Notes: Memoria 200 mg oral 0-05 Same as: l tablet 23:56: No Doz) morphine 2021-08 No 4 mg, Memoria Sulfate 0-05 Route: l 23:45: IVP, ONCE, Dosing Weight 159.091, kg, Priority: STAT, Start date: 05/16/22 18:45:00 CDT, Stop date: 05/16/22 18:45:00 CDT morphine 2021-08 No 4 mg, Memoria [...] 18:44:00 CDT, Stop date: 05/16/22 18:44:00 CDT metoclopram 2021-08 No 10 mg, David [...] Take 1 UT -clavulanat 0-03 tablet by [facility] e 00:00: mouth (Augmentin) 00 every 12 875-125 MG (twelve) tablet hours. FOR 7 DAYS topiramate 2021-08 Yes TAKE 1 UT (Topamax) 0-03 TABLET BY [facility]alt [facility] 25 MG 00:00: MOUTH tablet 00 EVERY 12 HOURS FOR 10 DAYS amoxicillin 2021-08 Yes 1{tbl} Q12H Take 1 UT -clavulanat 0-03 tablet by [facility] e 00:00: mouth (Augmentin) 00 every 12 875-125 MG (twelve) tablet hours. FOR 7 DAYS topiramate 2021-08 Yes TAKE 1 UT (Topamax) 0-03 TABLET BY [facility]alt [facility] 25 MG 00:00: MOUTH tablet 00 EVERY 12 HOURS FOR 10 DAYS amoxicillin 2021-08 Yes 1{tbl} Q12H Take 1 UT -clavulanat 0-03 tablet by [facility] e 00:00: mouth (Augmentin) 00 [...] tab, PO, l tablet 02:03: Q6H, PRN [place] 00 nausea and vomiting, X 5 day, # 20 tab, 0 Refill(s) Augmentin 2021-08 Yes 875 mg = 1 Me moria 875 mg oral 0-02 tab, PO, l tablet 02:03: Q12H, X 7 Sadi n 00 day, # 14 tab, 0 Refill(s) Reglan 10 2021-08 Yes 10 mg = 1 Mem oria mg oral 0-02 tab, PO, l tablet 02:03: Q6H, PRN [place] 00 nausea and vomiting, X 5 day, # 20 tab, 0 Refill(s) ketOROLAC 2021-08 No 15 mg, Memori a 0-02 Route: l 01:29: IVP, Drug form: INJ, ONCE, Dosing Weight 145.455, kg, Priority: STAT, Start date: 05/12/22 20:29:00 CDT, Stop date: 05/12/22 20:29:00 CDT ketOROLAC 2021-08 No 15 mg, Memori a 0-02 Route: l 01:29: IVP, Drug form: INJ, ONCE, Dosing Weight 145.455, kg, Priority: STAT, Start date: 05/12/22 20:29:00 CDT, Stop date: 05/12/22 20:29:00 CDT acetaminoph 2021-08 Yes Notes: Do M emoria en 0-02 not exceed l 01:19: 4 gm/day. [place] 00 (Same as: Tylenol) ibuprofen 2021-08 No [...] 20:19:00 CDT, Stop date: 05/12/22 20:19:00 CDT acetaminoph 2021-08 Yes Notes: Do M maria inesria en 0-02 not exceed l 01:19: 4 gm/day. [place] 00 (Same as: Tylenol) ibuprofen 2021-08 No 600 mg, Memor ia 0-02 Route: PO, l 01:19: ONCE, [place] 00 Dosing Weight 145.455, kg, Priority: STAT, [...] 20:18:00 CDT, Stop date: 05/12/22 20:18:00 CDT metoclopram 2021-08 No 10 mg, David ktaarzyna debbie 0-02 Route: l 01:18: IVP, Drug [place] 00 form: INJ, ONCE, Dosing Weight 145.455, kg, Priority: STAT, Start date: 05/12/22 20:18:00 CDT, Stop date: 05/12/22 20:18:00 CDT morphine 2021-08 No Notes: Memoria Sulfate 0-01 (Same l 22:33: as:MORPhin [place] e Sulfate) morphine 2021-08 No Notes: [facility]oria Sulfate 0-01 (Same l 22:33: as:MORPhin [place] e Sulfate) fentaNYL 2021-08 No Notes: Memoria 0-01 (Same as: l 17:14: Sublimaze) Preservati ve free. fentaNYL 2021-08 No Notes: Memoria 0-01 (Same as: l 17:14: Sublimaze) Preservati ve free. lidocaine 2021-08 No Notes: Memori a 1% 0-01 (Same as: l 15:19: Xylocaine) morphine 2021-08 No Notes: [facility] Sulfate 0-01 (Same l 15:19: as:MORPhin e Sulfate) lidocaine 2021-08 No Notes: Memori a 1% 0-01 (Same as: l 15:19: Xylocaine) morphine 2021-08 No Notes: [facility] Sulfate 0-01 (Same l 15:19: as:MORPhin e Sulfate) Benadryl 2021-08 No 25 mg, [...] Stop date: 05/12/22 9:48:00 CDT, Bolus Dose Benadryl 2021-08 No 25 mg, Memoria 0-01 [...] 9:47:00 CDT, Stop date: 05/12/22 9:47:00 CDT Compazine 2021-08 No 10 mg, Memori a 0-01 Route: l 14:47: IVPB, Drug form: INJ, ONCE, Dosing Weight 145.455, kg, Priority: STAT, Start date: 05/12/22 9:47:00 CDT, Stop date: 05/12/22 9:47:00 CDT fentaNYL 2021-08 No 50 Memoria 0-01 microgram, l 13:26: Route: IVP, ONCE, Dosing Weight 145.455, kg, Priority: STAT, Start date: 05/12/22 8:26:00 CDT, Stop date: 05/12/22 8:26:00 CDT fentaNYL 2021-08 No 50 Memoria 0-01 microgram, l 13:26: Route: IVP, ONCE, Dosing Weight 145.455, kg, Priority: STAT, Start date: 05/12/22 8:26:00 CDT, Stop date: 05/12/22 8:26:00 CDT morphine 2021-08 No 4 mg, [facility] Sulfate 0-01 Route: l 13:23: IVP, ONCE, Dosing Weight 145.455, kg, Priority: STAT, Start date: 05/12/22 8:23:00 CDT, Stop date: 05/12/22 8:23:00 CDT morphine 2021-08 No 4 mg, [facility] Sulfate 0-01 Route: l 13:23: IVP, ONCE, Dosing Weight 145.455, kg, Priority: STAT, Start date: 05/12/22 8:23:00 CDT, Stop date: 05/12/22 8:23:00 CDT ketOROLAC 2021-08 No 4 days Memor ia 0-01 l 10:21: MEDICATION WASTE Product Size: 30 mg Product Wasted: ___ mg ketOROLAC 2-1 No 4 days Mem[facility] ia 0-01 l 10:21: MEDICATION [place] 00 WASTE Product Size: 30 mg Product Wasted: [...] 00:00: (one) time 00 each day. lisinopril 2-0 2023- No 20mg QD Take 20 mg UT 20 MG 8-16 09-12 by mouth 1 Health tablet 00:00: 00:00 (one) time 00 :00 each day. lisinopril 2-0 2023- No 20mg QD Take 20 mg [...] solution 00 TWICE A DAY ofloxacin 2-0 2023- No INSTILL 4 UT (Floxin) 6-15 09-12 DROPS INTO [facility] th 0.3 % otic 00:00: 00:00 LEFT EAR solution 00 :00 TWICE A DAY No known 2021-0 No No known UT medications 3-11 medication He alth 13:38: s 44 Cefazolin 2022-0 No Notes: Memori a 10-10 (Same As: l 04:00: Ancef, [place] 00 Kefzol) MEDICATION WASTE Product Size: 1000 mg Product Wasted: ___ mg Cefazolin 2022-0 No Notes: Memori a 10-10 (Same As: l 04:00: Ancef, [place] 00 Kefzol) MEDICATION WASTE Product Size: 1000 mg Product Wasted: ___ mg Cefazolin 2022-0 No Notes: Memori a 10-10 (Same As: l 04:00: Ancef, [place] 00 Kefzol) MEDICATION WASTE Product Size: 1000 mg Product Wasted: ___ mg Oxycodone 202-0 No 10 mg, Memori a 10-09 Route: PO, l 21:36: Drug form: [place] 00 TAB, ONCE, Dosing Weight 156, kg, PRN Pain Score 7-10, Start date: 10/09/21 15:36:00 [employer] Oxycodone 2022-0 No 10 mg, Memori a 10-09 Route: PO, l 21:36: Drug form: [place] 00 TAB, ONCE, Dosing Weight 156, kg, PRN Pain Score 7-10, Start date: 10/09/21 15:36:00 [employer] Oxycodone 2022-0 No 10 mg, Memori a 10-09 Route: PO, l 21:36: Drug form: [place] 00 TAB, ONCE, Dosing Weight 156, kg, PRN Pain Score 7-10, Start date: 10/09/21 15:36:00 [employer] ENGINEER Ofirmev 202-0 No or = 50 Memori a 2-28 kg, Start l 21:19: date: 10/09/21 15:19:00 [employer] SUPPORT ENGINEER Ofirmev 2022-0 No or = 50 Memori a 2-28 kg, Start l 21:19: date: 10/09/21 15:19:00 [employer] SU[employer] ENGINEER Ofirmev 202-0 No or = 50 Memori a 2-28 kg, Start l 21:19: date: 10/09/21 15:19:00 [employer]INEER sugammadex 2022-0 No Route: IV, M emoria (ANES) - Drug form: l 21:05: SOLN, [place] 00 ONCE, Stop date: 10/09/21 15:05:00 [employer]ER sugammadex 2021-0 No Route: IV, M emoria (ANES) - Drug form: l 21:05: SOLN, [place] 00 ONCE, Stop date: 10/09/21 15:05:00 [employer]INEER sugammadex 2021-0 No Route: IV, M emoria (ANES) - Drug form: l 21:05: SOLN, [place] 00 ONCE, Stop date: 10/09/21 15:05:00 [employer]INEER Hydromorpho 2021-0 No Notes: David katarzyna ne 2-28 Same as l 21:02: Dilaudid [place] Flumazenil No Notes: Memor ia 2-28 (Same as: l 21:02: Romazicon) [place] Naloxone 2021-0 No Notes: Memoria 2-28 Same as l 21:02: Narcan Ondansetron 2021-0 No 4 mg, Memor ia 2-28 Route: l 21:02: IVP, ONCE, [place] 00 Dosing Weight 156, kg, PRN Nausea & Vomiting, Start date: 10/09/21 15:02:00 [employer] Hydromorpho 2021-0 No Notes: David katarzyna ne 2-28 Same as l 21:02: Dilaudid [place] Flumazenil 2021-0 No Notes: Memor ia 2-28 (Same as: l 21:02: Romazicon) [place] Naloxone 2021-0 No Notes: Memoria 2-28 Same as l 21:02: Narcan [place] Ondansetron 2021-0 No 4 mg, Memor ia 2-28 Route: l 21:02: IVP, ONCE, [place] 00 Dosing Weight 156, kg, PRN Nausea & Vomiting, Start date: 10/09/21 15:02:00 [employer]ER Hydromorpho 2021-0 No Notes: David katarzyna ne 2-28 Same as l 21:02: Dilaudid [place] Flumazenil 2021-0 No Notes: Memor ia 2-28 (Same as: l 21:02: Romazicon) Naloxone 2021-0 No Notes: Memoria - Same as l 21:02: Narcan Ondansetron 2021-0 No 4 mg, Memor ia 10-09 Route: l 21:02: IVP, ONCE, Dosing Weight 156, kg, PRN Nausea & Vomiting, Start date: 10/09/21 15:02:00 [employer] ondansetron 2021-0 No Route: IV, Memoria (ANES) - Drug form: l 21:00: INJ, ONCE, Stop date: 10/09/21 15:00:00 [employer] ondansetron 2021-0 No Route: IV, Memoria (ANES) - Drug form: l 21:00: INJ, ONCE, Stop date: 10/09/21 15:00:00 [employer]INEER ondansetron 2021-0 No Route: IV, Memoria (ANES) - Drug form: l 21:00: INJ, ONCE, Stop date: 10/09/21 15:00:00 [employer] ceFAZolin 2021-0 No Route: IV, Me moria (ANES) - Drug form: l 20:38: INJ, ONCE, Stop date: 10/09/21 14:38:00 [employer]INE[employer] ceFAZolin 2021-0 No Route: IV, Me moria (ANES) - Drug form: l 20:38: INJ, ONCE, Stop date: 10/09/21 14:38:00 [employer]INE[employer] ceFAZolin 2021-0 No Route: IV, Me moria (ANES) - Drug form: l 20:38: INJ, ONCE, Stop date: 10/09/21 14:38:00 [employer]INEER propofol 2021-0 No Route: IV, Mem oria (ANES) - Drug form: l 20:33: INJ, ONCE, Stop date: 10/09/21 14:33:00 [employer]INEER rocuronium 2021-0 No Route: IV, M emoria (ANES) - Drug form: l 20:33: INJ, ONCE, Stop date: 10/09/21 14:33:00 [employer]INEER fentaNYL 2021-0 No Route: IV, Mem oria (ANES) - Drug form: l 20:33: INJ, ONCE, Stop date: 10/09/21 14:33:00 [employer]INEER dexamethaso 2021-0 No Route: IV, Memoria ne (ANES) - Drug form: l 20:33: INJ, ONCE, Stop date: 10/09/21 14:33:00 [employer]INEER propofol 2021-0 No Route: IV, Mem oria (ANES) 10-09 Drug form: l 20:33: INJ, ONCE, Stop date: 10/09/21 14:33:00 [employer]INEER rocuronium 2021-0 No Route: IV, M emoria (ANES) - Drug form: l 20:33: INJ, ONCE, Stop date: 10/09/21 14:33:00 [employer]INEER fentaNYL 2021-0 No Route: IV, Mem oria (ANES) - Drug form: l 20:33: INJ, ONCE, Stop date: 10/09/21 14:33:00 [employer]INEER dexamethaso 2021-0 No Route: IV, Memoria ne (ANES) - Drug form: l 20:33: INJ, ONCE, Stop date: 10/09/21 14:33:00 [employer]INEER propofol 2021-0 No Route: IV, Mem oria (ANES) - Drug form: l 20:33: INJ, ONCE, Stop date: 10/09/21 14:33:00 [employer] ENGINEER rocuronium 2021-0 No Route: IV, M emoria (ANES) - Drug form: l 20:33: INJ, ONCE, Stop date: 10/09/21 14:33:00 [employer] SU[employer] ENGINEER fentaNYL 2021-0 No Route: IV, Mem oria (ANES) 2- Drug form: l 20:33: INJ, ONCE, Stop date: 10/09/21 14:33:00 [employer]ER dexamethaso 2021-0 No Route: IV, Memoria ne (ANES) 2- Drug form: l 20:33: INJ, ONCE, Stop date: 10/09/21 14:33:00 [employer] lidocaine 2021-0 No Route: IV, Me moria (ANES) 2-28 Drug form: l 20:28: INJ, ONCE, Stop date: 10/09/21 14:28:00 [employer] lidocaine 2021-0 No Route: IV, Me moria (ANES) 2-28 Drug form: l 20:28: INJ, ONCE, Stop date: 10/09/21 14:28:00 [employer]ER lidocaine 2021-0 No Route: IV, Me moria (ANES) 2-28 Drug form: l 20:28: INJ, ONCE, Stop date: 10/09/21 14:28:00 [employer]ER Isolyte S 2021-0 No Route: IV, Me moria PH 7.4 2-28 Total l (ANES) 1000 19:29: Volume: Her jones mL 00 1,000, Start date: 10/09/21 13:29:00 [employer]ER, Stop date: 10/09/21 14:29:00 [employer] ENGINEER Isolyte S 2021-0 No Route: IV, Me moria PH 7.4 2-28 Total l (ANES) 1000 19:29: Volume: Her jones mL 00 1,000, Start date: 10/09/21 13:29:00 [employer]ER, Stop date: 10/09/21 14:29:00 [employer] SUPPORT ENGINEER Isolyte S 2021-0 No Route: IV, Me moria PH 7.4 2-28 Total l (ANES) 1000 19:29: Volume: Her jones mL 00 1,000, Start date: 10/09/21 13:29:00 [employer]ER, Stop date: 10/09/21 14:29:00 [employer]INEER Epinephrine 2021-0 Yes Notes: David katarzyna 0.01 [...] de 10 MG/ML ine) Injectable Solution Lidocaine 2022-0 No 1 patch, David katarzyna 0.05 MG/MG 2-28 Route: l Transdermal 15:00: TOP, Sadi n Patch 00 Daily, Drug form: FILM, Start date: 10/09/21 9:00:00 [employer], Duration: 30 day, Stop date: 11/07/21 9:00:00 CDT, 0 Levetiracet 2022-0 No 500 mg, 1 M emoria am 500 MG 2-28 tab, l Oral Tablet 15:00: Route: PO, [place] [Keppra] Drug form: TAB, Q12H, Dosing Weight 156, kg, Start date: 10/09/21 9:00:00 [employer]ER, Duration: 30 day, Stop date: 11/07/21 21:00:00 CDT, 0 Lidocaine 2022-0 No 1 patch, David katarzyna 0.05 MG/MG 2-28 Route: l Transdermal 15:00: TOP, Sadi n Patch 00 Daily, Drug form: FILM, Start date: 10/09/21 9:00:00 [employer], Duration: 30 day, Stop date: 11/07/21 9:00:00 CDT, 0 Levetiracet 2022-0 No 500 mg, 1 M emoria am 500 MG 2-28 tab, l Oral Tablet 15:00: Route: PO, [place] [Keppra] Drug form: TAB, Q12H, Dosing Weight 156, kg, Start date: 10/09/21 9:00:00 [employer]ER, Duration: 30 day, Stop date: 11/07/21 21:00:00 CDT, 0 Lidocaine 2022-0 No 1 patch, David katarzyna 0.05 MG/MG 2-28 Route: l Transdermal 15:00: TOP, Sadi n Patch 00 Daily, Drug form: FILM, Start date: 10/09/21 9:00:00 [employer]ER, Duration: 30 day, Stop date: 11/07/21 9:00:00 CDT, 0 Levetiracet 2022-0 No 500 mg, 1 M emoria am 500 MG 2-28 tab, l Oral Tablet 15:00: Route: PO, [place] [Keppra] 00 Drug form: TAB, Q12H, Dosing Weight 156, kg, Start date: 10/09/21 9:00:00 [employer]INEER, Duration: 30 day, Stop date: 11/07/21 21:00:00 CDT, 0 Hydromorpho No Notes: David katarzyna ne 2-28 Same as l 13:57: Dilaudid [place] Hydromorpho No Notes: David katarzyna ne 2-28 Same as l 13:57: Dilaudid [place] Hydromorpho No Notes: David katarzyna ne 2-28 Same as l 13:57: Dilaudid [place] 00 Reglan No Notes: Memoria 2-28 (Same as: l 08:15: Reglan) [place] Dilaudid No Notes: Memoria 2-28 Same as l 08:15: Dilaudid [place] 00 Reglan No Notes: Memoria 2-28 (Same as: l 08:15: Reglan) [place] Dilaudid No Notes: Memoria 2-28 Same as l 08:15: Dilaudid [place] 00 Reglan No Notes: Memoria 2-28 (Same as: l 08:15: Reglan) [place] Dilaudid No Notes: Memoria 2-28 Same as l 08:15: Dilaudid [place] 00 Sodium No 1,000 mL, Memori a Chloride 2- Rate: 75 l 0.9% IV 06:49: ml/hr, [place] 1,000 mL 00 Infuse over: 13.3 hr, Route: IV, Dosing Weight 156 kg, Total Volume: 1,000, Start date: 10/09/21 0:49:00 [employer], Duration: 30 day, Stop date: 11/08/21 0:48:00 CDT, BSA: 2.9 m2, 0 Sodium No 1,000 mL, Memori a Chloride 2-28 Rate: 75 l 0.9% IV 06:49: ml/hr, [place] 1,000 mL 00 Infuse over: 13.3 hr, Route: IV, Dosing Weight 156 kg, Total Volume: 1,000, Start date: 10/09/21 0:49:00 [employer]ER, Duration: 30 day, Stop date: 11/08/21 0:48:00 CDT, BSA: 2.9 m2, 0 Sodium No 1,000 mL, Memori a Chloride 2-28 Rate: 75 l 0.9% IV 06:49: ml/hr, [place] 1,000 mL 00 Infuse over: 13.3 hr, Route: IV, Dosing Weight 156 kg, Total Volume: 1,000, Start date: 10/09/21 0:49:00 [employer], Duration: 30 day, Stop date: 11/08/21 0:48:00 CDT, BSA: 2.9 m2, 0 Docusate No Notes: Memoria 2-28 (Same as: l 03:00: Colace) [place] 00 (Do Not Crush) Docusate No Notes: Memoria 2-28 (Same as: l 03:00: Colace) [place] (Do Not Crush) sennosides, No Notes: David katarzyna [facility] 2-28 (Same as: l 03:00: Senokot) [place] 00 Saline No Notes: Memoria Flush 0.9% 2-28 (Same as: l 03:00: BD [place] 00 Posiflush) sennosides, No Notes: David katarzyna [facility] 2-28 (Same as: l 03:00: Senokot) [place] 00 Saline No Notes: Memoria Flush 0.9% 2-28 (Same as: l 03:00: BD [place] 00 Posiflush) Docusate No Notes: Memoria 2-28 (Same as: l 03:00: Colace) [place] 00 (Do Not Crush) sennosides, No Notes: David katarzyna [facility] 2-28 (Same as: l 03:00: Senokot) [place] 00 Saline No Notes: Memoria Flush 0.9% 2-28 (Same as: l 03:00: BD [place] 00 Posiflush) Sodium No 1,000 mL, Memori a Chloride 2-28 Rate: 50 l 0.9% IV 01:57: ml/hr, [place] 1,000 mL 00 Infuse over: 20 hr, Route: IV, Dosing Weight 156 kg, Total Volume: 1,000, Start date: 10/08/21 19:57:00 [employer]ER, Duration: 30 day, Stop date: 11/07/21 19:56:00 CDT, BSA: 2.9 m2, 0 Acetaminoph No Notes: Do M emoria en 2- not exceed l 01:57: 4 gm/day. [place] 00 (Same as: Tylenol) Acetaminoph No Notes: David katarzyna en 325 MG / - (Same as: l Hydrocodone 01:57: [place] Kelly nn Bitartrate 00 325/5) Do 5 MG Oral not exceed Tablet 4gm/day of acetaminop hen. Morphine No Notes: Memoria 2- (Same l 01:57: as:MORPhin [place] 00 e Sulfate) Bisacodyl No Notes: Memori a 2-28 (Same As: l 01:57: Dulcolax, [place] Bisco-Lax) Ondansetron No Notes: David katarzyna 2-28 [...] PRN Hypertensi on, Start date: 10/08/21 19:57:00 [employer]INEER, Duration: 3 doses or times, Stop [...] Sodium No 1,000 mL, Memori a Chloride 2- Rate: 50 l 0.9% IV 01:57: ml/hr, [place] 1,000 mL 00 Infuse over: 20 hr, Route: IV, Dosing Weight 156 kg, Total Volume: 1,000, Start date: 10/08/21 19:57:00 [employer]INEER, Duration: 30 day, Stop date: 11/07/21 19:56:00 CDT, BSA: 2.9 m2, 0 Acetaminoph No Notes: Do M emoria en 2- not exceed l 01:57: 4 gm/day. (Same as: Tylenol) Acetaminoph No Notes: David katarzyna en 325 MG / 2- (Same as: l Hydrocodone 01:57: [place] Kelly nn Bitartrate 00 325/5) Do 5 [...] PRN Hypertensi on, Start date: 10/08/21 19:57:00 [employer]INEER, Duration: 3 doses or times, Stop date: Limited # of times, 0 Saline No Notes: Memoria Flush 0.9% - (Same as: l 01:57: BD [place] 00 Posiflush) Insulin No Notes: Memoria regular - (Same as: l 01:57: Humulin R) [place] 00 Roll in palms of hands gently; Do not shake vigorously . WASTE: F/P - Black; E - Municipal Trash Bin Stable for 31 days at room temperatur e Expires in days from ____Date Sodium No 1,000 mL, Memori a Chloride 10-09 Rate: 50 l 0.9% IV 01:57: ml/hr, [place] 1,000 mL 00 Infuse over: 20 hr, Route: IV, Dosing Weight 156 kg, Total Volume: 1,000, Start date: 10/08/21 19:57:00 [employer] ENGINEER, Duration: 30 day, Stop date: 11/07/21 19:56:00 CDT, BSA: 2.9 m2, 0 Acetaminoph No Notes: Do M emoria en - not exceed l 01:57: 4 gm/day. [place] (Same as: Tylenol) Acetaminoph No Notes: David katarzyna en 325 MG / 10-09 (Same as: l Hydrocodone 01:57: [place] Kelly nn Bitartrate 00 325/5) Do 5 MG Oral not exceed Tablet 4gm/day of acetaminop hen. Morphine No Notes: Memoria 2- (Same l 01:57: as:MORPhin [place] 00 e Sulfate) Bisacodyl No Notes: Memori a 2- (Same As: l 01:57: Dulcolax, [place] 00 Bisco-Lax) Ondansetron No Notes: David katarzyna - (Same as: l 01:57: Zofran) [place] 00 MEDICATION WASTE Product Size: 4 mg Product Wasted: ___ mg Hydralazine No Notes: David katarzyna 2-28 (Same as: l :57: Apresoline ) Push over 5 minutes Labetalol No 10 mg, 2 David katarzyna 2-28 mL, Route: l 01:57: IVP, Drug form: INJ, Q15Min, Dosing Weight 156, kg, PRN Hypertensi on, Start date: 10/08/21 19:57:00 [employer]ER, Duration: 3 doses or times, Stop date: Limited # of times, 0 Saline No Notes: Memoria Flush 0.9% 10-09 (Same as: l :57: BD Posiflush) Insulin No Notes: Memoria regular -28 (Same as: l :57: Humulin R) Roll [...] [place] [Keppra] 00 tab, 0 Refill(s), Pharmacy: [facility] #[id number], 190.5, cm, 10/03/21 6:40:00 [employer], Height, 159.3, kg, 10/03/21 6:40:00 [employer] ENGINEER, Weight docusate Yes 2 cap, PO, Mem oria sodium 50 2-24 QPM, X 10 l MG / 13:52: day, # 20 [place] sennosides, 00 cap, 0 [facility] 8.6 MG Refill(s), Oral Pharmacy: [facility] #[id number], 190.5, cm, 10/03/21 6:40:00 [employer] ENGINEER, Height, 159.3, kg, 10/03/21 6:40:00 [employer] SU[employer] ENGINEER, Weight magnesium 2021-0 Yes 8.725 gm = Me moria citrate 2-24 150 ml, l 58.2 MG/ML 13:52: PO, ONCE, He rmann Oral 00 if no Solution bowel movement in couple days, # 300 ml, 0 Refill(s), Pharmacy: [facility] #[id number], 190.5, cm, 10/03/21 6:40:00 [employer]ER, Height, 159.3, kg, 10/03/21 6:40:00 [employer]KTOP SUPPORT ENGINEER, Weight POLYETHYLEN Yes 17 gm, PO, Memoria E GLYCOL 2-24 Daily, X l 3350 142 13:52: 10 day, # Herm faina MG/ML Oral 00 170 gm, 0 Solution Refill(s), [Miralax] Pharmacy: [facility] #[id number], 190.5, cm, 10/03/21 6:40:00 [employer] ENGINEER, Height, 159.3, kg, 10/03/21 6:40:00 [employer] SU[employer] ENGINEER, Weight Ondansetron No 4 mg = 1 Me moria 4 MG Oral 2-24 tab, PO, l Tablet 13:52: Q8H, PRN [place] [Zofran] 00 Nausea/vom iting, X 3 day, # 10 tab, 0 Refill(s), Pharmacy: [facility] #[id number], 190.5, cm, 10/03/21 6:40:00 [employer] ENGINEER, Height, 159.3, kg, 10/03/21 6:40:00 [employer] SU[employer] ENGINEER, Weight Acetaminoph 2021-0 Yes 1 tab, PO, Memoria en 325 MG / 2-24 Q4-6H, PRN l Hydrocodone 13:52: Pain Score [place] Bitartrate 00 4-6, X 5 5 MG Oral day, # 30 Tablet tab, 0 [[place] Refill(s), 5/325] other Levetiracet Yes 500 mg = 1 Memoria am 500 MG 2-24 tab, PO, l Oral Tablet 13:52: Q12H, # 60 [place] [Keppra] 00 tab, 0 Refill(s), Pharmacy: [facility] #[id number], 190.5, cm, 10/03/21 6:40:00 [employer] ENGINEER, Height, 159.3, kg, 10/03/21 6:40:00 [employer] SU[employer] ENGINEER, Weight docusate 0 Yes 2 cap, PO, Mem oria sodium 50 2-24 QPM, X 10 l MG / 13:52: day, # 20 [place] sennosides, 00 cap, 0 [facility] 8.6 MG Refill(s), Oral Pharmacy: [facility] #[id number], 190.5, cm, 10/03/21 6:40:00 [employer] SU[employer] ENGINEER, Height, 159.3, kg, 10/03/21 6:40:00 [employer] SUPPORT ENGINEER, Weight magnesium Yes 8.725 gm = Me moria citrate 2-24 150 ml, l 58.2 MG/ML 13:52: PO, ONCE, He rmann Oral 00 if no Solution bowel movement in couple days, # 300 ml, 0 Refill(s), Pharmacy: [facility] #[id number], 190.5, cm, 10/03/21 6:40:00 [employer] ENGINEER, Height, 159.3, kg, 10/03/21 6:40:00 [employer] SU[employer] ENGINEER, Weight POLYETHYLEN Yes 17 gm, PO, Memoria E GLYCOL 2-24 Daily, X l 3350 142 13:52: 10 day, # Herm faina MG/ML Oral 00 170 gm, 0 Solution Refill(s), [Miralax] Pharmacy: [facility] #[id number], 190.5, cm, 10/03/21 6:40:00 [employer] SUPPORT ENGINEER, Height, 159.3, kg, 10/03/21 6:40:00 [employer] SU[employer] ENGINEER, Weight Ondansetron 2021-0 No 4 mg = 1 Me moria 4 MG Oral 2-24 tab, PO, l Tablet 13:52: Q8H, PRN [place] [Zofran] 00 Nausea/vom iting, X 3 day, # 10 tab, 0 Refill(s), Pharmacy: [facility] #[id number], 190.5, cm, 10/03/21 6:40:00 [employer] SUPPORT ENGINEER, Height, 159.3, kg, 10/03/21 6:40:00 [employer]KTOP SUPPORT ENGINEER, Weight Acetaminoph 0 Yes 1 tab, PO, Memoria en 325 MG / 2-24 Q4-6H, PRN l Hydrocodone 13:52: Pain Score [place] Bitartrate 00 4-6, X 5 5 MG Oral day, # 30 Tablet tab, 0 [[place] Refill(s), 5/325] other Levetiracet Yes 500 mg = 1 Memoria am 500 MG 2-24 tab, PO, l Oral Tablet 13:52: Q12H, # 60 [place] [Keppra] 00 tab, 0 Refill(s), Pharmacy: [facility] #[id number], 190.5, cm, 10/03/21 6:40:00 [employer] SUPPORT ENGINEER, Height, 159.3, kg, 10/03/21 6:40:00 [employer] SUPPORT ENGINEER, Weight docusate Yes 2 cap, PO, Mem oria sodium 50 2-24 QPM, X 10 l MG / 13:52: day, # 20 [place] sennosides, 00 cap, 0 [facility] 8.6 MG Refill(s), Oral Pharmacy: [facility] #[id number], 190.5, cm, 10/03/21 6:40:00 [employer]KTOP SUPPORT ENGINEER, Height, 159.3, kg, 10/03/21 6:40:00 [employer]KTOP SUPPORT ENGINEER, Weight magnesium Yes 8.725 gm = Me moria citrate 2-24 150 ml, l 58.2 MG/ML 13:52: PO, ONCE, He rmann Oral 00 if no Solution bowel movement in couple days, # 300 ml, 0 Refill(s), Pharmacy: [facility] #[id number], 190.5, cm, 10/03/21 6:40:00 [employer]KTOP SUPPORT ENGINEER, Height, 159.3, kg, 10/03/21 6:40:00 [employer]KTOP SUPPORT ENGINEER, Weight POLYETHYLEN 2021-0 Yes 17 gm, PO, Memoria E GLYCOL 2-24 Daily, X l 3350 142 13:52: 10 day, # Herm faina MG/ML Oral 00 170 gm, 0 Solution Refill(s), [Miralax] Pharmacy: [facility] #[id number], 190.5, cm, 10/03/21 6:40:00 [employer] SUPPORT ENGINEER, Height, 159.3, kg, 10/03/21 6:40:00 [employer]KTOP SUPPORT ENGINEER, Weight Ondansetron No 4 mg = 1 Me moria 4 MG Oral 2-24 tab, PO, l Tablet 13:52: Q8H, PRN [place] [Zofran] Nausea/vom iting, X 3 day, # 10 tab, 0 Refill(s), Pharmacy: [facility] #[id number], 190.5, cm, 10/03/21 6:40:00 [employer] SUPPORT ENGINEER, Height, 159.3, kg, 10/03/21 6:40:00 [employer] SUPPORT ENGINEER, Weight Acetaminoph Yes 1 tab, PO, Memoria en 325 MG / 2-24 Q4-6H, PRN l Hydrocodone 13:52: Pain Score [place] Bitartrate 00 4-6, X 5 5 MG Oral day, # 30 Tablet tab, 0 [[place] Refill(s), 5/325] other heparin No Notes: Memoria 5000 2-23 porcine l units/mL 22:00: heparin Sadi n injectable 00 solution heparin No Notes: Memoria 5000 2-23 porcine l units/mL 22:00: heparin Sadi n injectable 00 solution heparin No Notes: Memoria 5000 2-23 porcine l units/mL 22:00: heparin Sadi n injectable 00 solution Saline No Notes: Memoria Flush 0.9% 2-23 Same as: l 03:00: BD [place] 00 Posiflush Sterile Levetiracet No Notes: David katarzyna am 500 MG 2-23 (Same l Oral Tablet 03:00: as:Keppra) [place] [Keppra] 00 Saline No Notes: Memoria Flush 0.9% 2-23 Same as: l 03:00: BD [place] 00 Posiflush Sterile Levetiracet No Notes: David katarzyna am 500 MG 2-23 (Same l Oral Tablet 03:00: as:Keppra) [place] [Keppra] 00 Saline No Notes: Memoria Flush 0.9% 2-23 Same as: l 03:00: BD [place] 00 Posiflush Sterile Levetiracet No Notes: David [...] Not Crush) sennosides, No Notes: David katarzyna [facility] 2-22 (Same as: l 23:00: Senokot) Famotidine No Notes: Memor ia 20 MG Oral 2-22 (Same as: l Tablet 23:00: Pepcid) Docusate No Notes: Memoria 2-22 (Same as: l 23:00: Colace) (Do Not Crush) sennosides, No Notes: David katarzyna [facility] 2-22 (Same as: l 23:00: Senokot) Famotidine No Notes: Memor ia 20 MG Oral 2-22 (Same as: l Tablet 23:00: Pepcid) Docusate No Notes: Memoria 2-22 (Same as: l 23:00: Colace) (Do Not Crush) sennosides, No Notes: David katarzyna [facility] 2-22 (Same as: l 23:00: Senokot) Famotidine No Notes: Memor ia 20 MG Oral 2-22 (Same as: l Tablet 23:00: Pepcid) Hydromorpho No 0.5 mg, Mem oria ne 2-22 Route: l 20:05: IVP, ONCE, Dosing Weight 159.3, kg, Priority: STAT, Start date: 10/03/21 14:05:00 [employer], Stop date: 10/03/21 14:05:00 [employer] Hydromorpho 2021-0 No 0.5 mg, Mem oria ne 10-03 Route: l 20:05: IVP, ONCE, Dosing Weight 159.3, kg, Priority: STAT, Start date: 10/03/21 14:05:00 [employer], Stop date: 10/03/21 14:05:00 [employer] Hydromorpho 2021-0 No 0.5 mg, Mem oria ne 10-03 Route: l 20:05: IVP, ONCE, Dosing Weight 159.3, kg, Priority: STAT, Start date: 10/03/21 14:05:00 [employer], Stop date: 10/03/21 14:05:00 [employer] metoprolol 2021-0 No Route: IV, M emoria (ANES) 10-03 Drug form: l 19:20: INJ, ONCE, Stop date: 10/03/21 13:20:00 [employer] metoprolol 2021-0 No Route: IV, M emoria (ANES) 10-03 Drug form: l 19:20: INJ, ONCE, Stop date: 10/03/21 13:20:00 [employer] metoprolol 2021-0 No Route: IV, M emoria (ANES) 10-03 Drug form: l 19:20: INJ, ONCE, Stop date: 10/03/21 13:20:00 [employer] Oxycodone 2021-0 No 10 mg, Memori a Hydrochlori 10-03 Route: PO, l de 5 MG 19:16: Drug form: Herm faina Oral Tablet 00 TAB, Q4H, Dosing Weight 159.3, kg, PRN Pain Score 7-10, Start date: 10/03/21 13:16:00 [employer], Duration: 30 day, Stop date: 11/02/21 13:15:00 CDT Oxycodone 2-0 No 10 mg, Memori a Hydrochlori 10-03 Route: PO, l de 5 MG 19:16: Drug form: Herm faina Oral Tablet 00 TAB, Q4H, Dosing Weight 159.3, kg, PRN Pain Score 7-10, Start date: 10/03/21 13:16:00 [employer], Duration: 30 day, Stop date: 11/02/21 13:15:00 CDT Oxycodone 2021-0 No 10 mg, Memori a Hydrochlori 10-03 Route: PO, l de 5 MG 19:16: Drug form: Herm faina Oral Tablet 00 TAB, Q4H, Dosing Weight 159.3, kg, PRN Pain Score 7-10, Start date: 10/03/21 13:16:00 [employer], Duration: 30 day, Stop date: 11/02/21 13:15:00 CDT sugammadex 2021-0 No Route: IV, M emoria (ANES) - Drug form: l 18:37: SOLN, [place] 00 ONCE, Stop date: 10/03/21 12:37:00 [employer] sugammadex 2021-0 No Route: IV, M emoria (ANES) - Drug form: l 18:37: SOLN, [place] 00 ONCE, Stop date: 10/03/21 12:37:00 [employer] sugammadex 2021-0 No Route: IV, M emoria (ANES) - Drug form: l 18:37: SOLN, [place] 00 ONCE, Stop date: 10/03/21 12:37:00 [employer] ondansetron 2021-0 No Route: IV, Memoria (ANES) - Drug form: l 18:22: INJ, ONCE, [place] 00 Stop date: 10/03/21 12:22:00 [employer] ondansetron 2021-0 No Route: IV, Memoria (ANES) 2- Drug form: l 18:22: INJ, ONCE, [place] 00 Stop date: 10/03/21 12:22:00 [employer] ondansetron 2021-0 No Route: IV, Memoria (ANES) 2- Drug form: l 18:22: INJ, ONCE, [place] 00 Stop date: 10/03/21 12:22:00 [employer] Dexamethaso 2021-0 No Notes: David katarzyna ne - Give with l 18:00: food. [place] 00 (Same As: Decadron) Dexamethaso 2021-0 No Notes: David katarzyna ne - Give [...] 10 MG Oral hen. (Same Tablet as: [place] [[place] 325/10) 10/325] Dilaudid No Notes: Memoria 2-22 Same as l 17:50: Dilaudid Benadryl No Notes: Memoria 2-22 (Same as: l 17:50: Benadryl) phenol No Notes: Memoria 2-22 Chlorasept l 17:50: ic [place] (Same as: Chlorasept ic, Sore Throat [place]) WASTE: F/P - Black; E - Municipal [...] 0.9% 10-03 Same as: l 17:50: BD [place] 00 Posiflush Sterile Sodium No 1,000 mL, Memori a Chloride 10-03 Rate: 100 l 0.9% IV 17:50: ml/hr, [place] 1,000 mL 00 Infuse over: 10 hr, Route: IV, Dosing Weight 159.3 kg, Total Volume: 1,000, Start date: 10/03/21 11:50:00 [employer] ENGINEER, Duration: 30 day, Stop date: 11/02/21 11:49:00 CDT, BSA: 2.93 m2, 0 Labetalol No 10 mg, 2 David katarzyna 2-22 mL, Route: l 17:50: IVP, Drug form: INJ, Q15Min, Dosing Weight 159.3, kg, PRN Hypertensi on, Start date: 10/03/21 11:50:00 [employer] ENGINEER, Duration: 3 doses or times, Stop date: 10/04/21 0:00:00 [employer] SUPPORT ENGINEER, 0 Hydralazine No Notes: David katarzyna 2-22 (Same as: l 17:50: Apresoline ) Push over 5 minutes Ondansetron No Notes: David katarzyna 2-22 (Same as: l 17:50: Zofran) MEDICATION WASTE Product Size: 4 mg Product Wasted: ___ mg Acetaminoph No Notes: Do M emoria en 325 MG / - not exceed l Hydrocodone 17:50: 4gm/day of [place] Bitartrate 00 acetaminop 10 MG Oral hen. (Same Tablet as: [place] [[place] 325/10) 10/325] Dilaudid No Notes: Memoria 2-22 Same as l 17:50: Dilaudid Benadryl No Notes: Memoria 2-22 (Same as: l 17:50: Benadryl) phenol No Notes: Memoria 2-22 Chlorasept l 17:50: ic [place] (Same as: Chlorasept ic, Sore Throat [place]) WASTE: F/P - Black; E - Municipal [...] Total Volume: 1,000, Start date: 10/03/21 11:50:00 [employer] SU[employer] ENGINEER, Duration: 30 day, Stop date: 11/02/21 11:49:00 CDT, BSA: 2.93 m2, 0 Labetalol No 10 mg, 2 David katarzyna 2-22 mL, Route: l 17:50: IVP, Drug form: INJ, Q15Min, Dosing Weight 159.3, kg, PRN Hypertensi on, Start date: 10/03/21 11:50:00 [employer] SU[employer] ENGINEER, Duration: 3 doses or times, Stop date: 10/04/21 0:00:00 [employer]KTOP SUPPORT ENGINEER, 0 Sodium No 1,000 mL, Memori a Chloride 2-22 Rate: 100 l 0.9% IV 17:50: ml/hr, [place] 1,000 mL 00 Infuse over: 10 hr, Route: IV, Dosing Weight 159.3 kg, Total Volume: 1,000, Start date: 10/03/21 11:50:00 [employer] SU[employer] ENGINEER, Duration: 30 day, Stop date: 11/02/21 11:49:00 CDT, BSA: 2.93 m2, 0 Labetalol No 10 mg, 2 David katarzyna 2-22 mL, Route: l 17:50: IVP, Drug form: INJ, Q15Min, Dosing Weight 159.3, kg, PRN Hypertensi on, Start date: 10/03/21 11:50:00 [employer] SU[employer] ENGINEER, Duration: 3 doses or times, Stop date: 10/04/21 0:00:00 [employer]KTOP SUPPORT ENGINEER, 0 Hydralazine No Notes: David katarzyna 2-22 (Same as: l 17:50: Apresoline ) Push over 5 minutes Ondansetron No Notes: David katarzyna 2-22 (Same as: l 17:50: Zofran) MEDICATION WASTE Product Size: 4 mg Product Wasted: ___ mg Acetaminoph No Notes: Do M emoria en 325 MG / 2- not exceed l Hydrocodone 17:50: 4gm/day of [place] Bitartrate 00 acetaminop 10 MG Oral hen. (Same Tablet as: [place] [[place] 325/10) 10/325] Dilaudid No Notes: Memoria 2-22 Same as l 17:50: Dilaudid Benadryl No Notes: Memoria 2-22 (Same as: l 17:50: Benadryl) phenol No Notes: Memoria 2-22 Chlorasept l 17:50: ic [place] (Same as: Chlorasept ic, Sore Throat [place]) WASTE: F/P - Black; E - Municipal Trash Bin Bisacodyl No Notes: Memori a 2-22 (Same As: l 17:50: Dulcolax, Bisco-Lax) Robaxin No Notes: Memoria 2- (Same l 17:50: as:Robaxin ) Melatonin 3 No Notes: David katarzyna MG Extended - (Same as: l Release 17:50: Melatonin) Herm Tylenol No Notes: Do Memor ia 2- [...] 16:45: INJ, ONCE, Stop date: 10/03/21 10:45:00 [employer] ENGINEER rocuronium No Route: IV, M emoria (ANES) 10-03 Drug form: l 16:45: INJ, ONCE, Stop date: 10/03/21 10:45:00 [employer] SU[employer] ENGINEER dexamethaso No Route: IV, Memoria ne (ANES) 10-03 Drug form: l 16:45: INJ, ONCE, Stop date: 10/03/21 10:45:00 [employer] SU[employer] ENGINEER lidocaine No Route: IV, Me moria (ANES) 10-03 Drug form: l 16:45: INJ, ONCE, Stop date: 10/03/21 10:45:00 [employer]KTOP SUPPORT ENGINEER rocuronium No Route: IV, M emoria (ANES) - Drug form: l 16:45: INJ, ONCE, Stop date: 10/03/21 10:45:00 [employer]KTOP SUPPORT ENGINEER dexamethaso No Route: IV, Memoria ne (ANES) 10-03 Drug form: l 16:45: INJ, ONCE, Stop date: 10/03/21 10:45:00 [employer]KTOP SUPPORT ENGINEER lidocaine 0 No Route: IV, Me moria (ANES) - Drug form: l 16:45: INJ, ONCE, Stop date: 10/03/21 10:45:00 [employer]KTOP SUPPORT ENGINEER rocuronium No Route: IV, M emoria (ANES) 10-03 Drug form: l 16:45: INJ, ONCE, Stop date: 10/03/21 10:45:00 DESKTOP SUPPORT ENGINEER dexamethaso No Route: IV, Memoria ne (ANES) 10-03 Drug form: l 16:45: INJ, ONCE, Stop date: 10/03/21 10:45:00 [employer] SU[employer] ENGINEER phenylephri 0 No Route: IV, Memoria ne (ANES) 10-03 Drug form: l 16:40: INJ, ONCE, Stop date: 10/03/21 10:40:00 [employer] SU[employer] ENGINEER phenylephri 0 No Route: IV, Memoria ne (ANES) 10-03 Drug form: l 16:40: INJ, ONCE, Stop date: 10/03/21 10:40:00 [employer]KTOP SU[employer] ENGINEER phenylephri 0 No Route: IV, Memoria ne (ANES) 10-03 Drug form: l 16:40: INJ, ONCE, Stop date: 10/03/21 10:40:00 [employer] SU[employer] ENGINEER Hydralazine 0 No Notes: David katarzyna 2-22 (Same as: l 16:37: Apresoline ) Push over 5 minutes Labetalol No 10 mg, 2 David katarzyna 2-22 mL, Route: l 16:37: IVP, Drug form: INJ, Q5Min, Dosing Weight 159.3, kg, PRN Elevated BP, Start date: 10/03/21 10:37:00 [employer] SU[employer] ENGINEER, Duration: 5 doses or times, Stop date: 10/04/21 0:00:00 DESKTOP SUPPORT ENGINEER, 0 Oxycodone No Notes: Memori a Hydrochlori - (Same as: l de 5 MG 16:37: Roxicodone Herm faina Oral Tablet ) Hydromorpho No Notes: David katarzyna ne 2-22 Same as l 16:37: Dilaudid [place] Flumazenil No Notes: Memor ia 2-22 (Same as: l 16:37: Romazicon) Naloxone No Notes: Memoria 2-22 Same as l 16:37: Narcan Ondansetron No Notes: David katarzyna 2-22 (Same as: l 16:37: Zofran) [place] 00 MEDICATION WASTE Product Size: 4 mg Product Wasted: ___ mg Hydralazine No Notes: David katarzyna 2-22 (Same as: l 16:37: Apresoline [place] ) Push over 5 minutes Labetalol No 10 mg, 2 David katarzyna 2-22 mL, Route: l 16:37: IVP, Drug form: INJ, Q5Min, Dosing Weight 159.3, kg, PRN Elevated BP, Start date: 10/03/21 10:37:00 [employer] SUPPORT ENGINEER, Duration: 5 doses or times, Stop date: 10/04/21 0:00:00 DESKTOP SUPPORT ENGINEER, 0 Oxycodone No Notes: Memori a [...] katarzyna 2-22 (Same as: l 16:37: Zofran) [place] 00 MEDICATION WASTE Product Size: 4 mg Product Wasted: ___ mg Hydralazine No Notes: David katarzyna 2-22 (Same as: l 16:37: Apresoline [place] ) Push over 5 minutes Labetalol No 10 mg, 2 David katarzyna 2-22 mL, Route: l 16:37: IVP, Drug form: INJ, Q5Min, Dosing Weight 159.3, kg, PRN Elevated BP, Start date: 10/03/21 10:37:00 [employer] SUPPORT ENGINEER, Duration: 5 doses or times, Stop date: 10/04/21 0:00:00 DESKTOP SUPPORT ENGINEER, 0 Oxycodone No Notes: Memori a [...] 16:35: INJ, ONCE, Stop date: 10/03/21 10:35:00 [employer] SU[employer] ENGINEER fentaNYL No Route: IV, Mem oria (ANES) 2-22 Drug form: l 16:35: INJ, ONCE, Stop date: 10/03/21 10:35:00 [employer]KTOP SU[employer] ENGINEER propofol No Route: IV, Mem oria (ANES) 2-22 Drug form: l 16:35: INJ, ONCE, Stop date: 10/03/21 10:35:00 [employer]KTOP SUPPORT ENGINEER fentaNYL No Route: IV, Mem oria (ANES) 2-22 Drug form: l 16:35: INJ, ONCE, Stop date: 10/03/21 10:35:00 [employer] SU[employer] ENGINEER propofol No Route: IV, Mem oria (ANES) 2-22 Drug form: l 16:35: INJ, ONCE, Stop date: 10/03/21 10:35:00 [employer]TOP SUPPORT ENGINEER fentaNYL 2021-0 No Route: IV, Mem oria (ANES) 2- Drug form: l 16:35: INJ, ONCE, [place] 00 Stop date: 10/03/21 10:35:00 [employer] SU[employer] ENGINEER midazolam 2021-0 No Route: IV, Me moria (ANES) 2- Drug form: l 16:24: SOLN, [place] ONCE, Stop date: 10/03/21 10:24:00 [employer] SU[employer] ENGINEER ceFAZolin 2021-0 No Route: IV, Me moria (ANES) 2- Drug form: l 16:24: INJ, ONCE, [place] 00 Stop date: 10/03/21 10:24:00 [employer] SU[employer] ENGINEER midazolam 2021-0 No Route: IV, Me moria (ANES) 2- Drug form: l 16:24: SOLN, [place] ONCE, Stop date: 10/03/21 10:24:00 DESKTOP SUPPORT ENGINEER ceFAZolin 2021-0 No Route: IV, Me moria (ANES) 2- Drug form: l 16:24: INJ, ONCE, Stop date: 10/03/21 10:24:00 [employer]KTOP SUPPORT ENGINEER midazolam 2021-0 No Route: IV, Me moria (ANES) 2- Drug form: l 16:24: SOLN, [place] ONCE, Stop date: 10/03/21 10:24:00 DESKTOP SUPPORT ENGINEER ceFAZolin 2021-0 No Route: IV, Me moria (ANES) 2- Drug form: l 16:24: INJ, ONCE, [place] 00 Stop date: 10/03/21 10:24:00 [employer]KTOP SUPPORT ENGINEER levETIRAcet 2021-0 No Route: IV, Memoria am (ANES) 2- Drug form: l 100 mg 16:20: INJ, Start Kelly date: 10/03/21 10:20:00 DESKTOP SUPPORT ENGINEER, Stop date: 10/03/21 11:20:00 DESKTOP SUPPORT ENGINEER levETIRAcet 2021-0 No Route: IV, Memoria am (ANES) 2- Drug form: l 100 mg 16:20: INJ, Start Kelly date: 10/03/21 10:20:00 DESKTOP SUPPORT ENGINEER, Stop date: 10/03/21 11:20:00 DESKTOP SUPPORT ENGINEER levETIRAcet No Route: IV, Memoria am (ANES) 10-03 Drug form: l 100 mg 16:20: INJ, Start date: 10/03/21 10:20:00 DESKTOP SUPPORT ENGINEER, Stop date: 10/03/21 11:20:00 DESKTOP SUPPORT ENGINEER propofol No Route: IV, Mem oria (ANES) 10 10-03 Drug form: l mg 15:26: INJ, date: 10/03/21 9:26:00 [employer]KTOP SUPPORT ENGINEER, Stop date: 10/03/21 10:26:00 DESKTOP SUPPORT ENGINEER propofol No Route: IV, Mem oria (ANES) 10 10-03 Drug form: l mg 15:26: INJ, date: 10/03/21 9:26:00 DESKTOP SUPPORT ENGINEER, Stop date: 10/03/21 10:26:00 DESKTOP SUPPORT ENGINEER propofol No Route: IV, Mem oria (ANES) 10 10-03 Drug form: l mg 15:26: INJ, Start date: 10/03/21 9:26:00 [employer]KTOP SUPPORT ENGINEER, Stop date: 10/03/21 10:26:00 DESKTOP SUPPORT ENGINEER Isolyte S No Route: IV, Me moria PH 7.4 2-22 Total l (ANES) 1000 14:26: Volume: Her jones mL 00 1,000, Start date: 10/03/21 8:26:00 DESKTOP SUPPORT ENGINEER, Stop date: 10/03/21 9:26:00 DESKTOP SUPPORT ENGINEER Isolyte S No Route: IV, Me moria PH 7.4 2- Total l (ANES) 1000 14:26: Volume: Her jones mL 00 1,000, Start date: 10/03/21 8:26:00 DESKTOP SUPPORT ENGINEER, Stop date: 10/03/21 9:26:00 DESKTOP SUPPORT ENGINEER Isolyte S No Route: IV, Me moria PH 7.4 2-22 Total l (ANES) 1000 14:26: Volume: Her jones mL 00 1,000, Start date: 10/03/21 8:26:00 DESKTOP SUPPORT ENGINEER, Stop date: 10/03/21 9:26:00 DESKTOP SUPPORT ENGINEER Isolyte S No Notes: Memori a PH 7.4 2-22 (Same as: l 1,000 mL 12:35: Isolyte S Herm faina 00 PH7.4, Normosol-R PH 7.4, Plasma-Lyt e A ) Acetaminoph No 1,000 mg, M emoria en 10-03 Route: PO, l 12:35: Drug form: [place] 00 TAB, PRE OP, Dosing Weight 160.3, kg, Priority: NOW, Start date: 10/03/21 6:35:00 [employer]KTOP SUPPORT ENGINEER, Duration: 1 doses or times Isolyte S No Notes: Memori a PH 7.4 10-03 (Same as: l 1,000 mL 12:35: Isolyte S Herm faina 00 PH7.4, Normosol-R PH 7.4, Plasma-Lyt e A ) Acetaminoph No 1,000 mg, M emoria en 10-03 Route: PO, l 12:35: Drug form: [place] 00 TAB, PRE OP, Dosing Weight 160.3, kg, Priority: NOW, Start date: 10/03/21 6:35:00 [employer] SUPPORT ENGINEER, Duration: 1 doses or times Isolyte S No Notes: Memori a PH 7.4 10-03 (Same as: l 1,000 mL 12:35: Isolyte S Herm faina 00 PH7.4, Normosol-R PH 7.4, Plasma-Lyt e A ) Acetaminoph No 1,000 mg, M emoria en 10-03 Route: PO, l 12:35: Drug form: [place] 00 TAB, PRE OP, Dosing Weight 160.3, kg, Priority: NOW, Start date: 10/03/21 6:35:00 [employer]KTOP SUPPORT ENGINEER, Duration: 1 doses or times NS [...] IV l 1000ml 12:00: - Do Not [place] (Premix) 00 Alter 1,000 mL WASTE: F/P [...] 0 Memoria 2-21 Refill(s) l 18:02: [place] Acetaminoph 0 No 1 tab, PO, Memoria en 300 MG / 2-21 PRN, PRN l Codeine 18:02: Headache Sadi n Phosphate 00 1-5, 0 30 MG Oral Refill(s) Tablet [Tylenol with Codeine #3] Zofran No PRN, 0 Memoria 2-21 Refill(s) l 18:02: [place] Acetaminoph 0 No 1 tab, PO, Memoria en 300 MG / 2-21 PRN, PRN l Codeine 18:02: Headache Sadi n Phosphate 00 1-5, 0 30 MG Oral Refill(s) Tablet [Tylenol with Codeine #3] Zofran 2021-0 No PRN, 0 Memoria 2-21 Refill(s) l 18:02: [place] 00 Sodium 2-0 No 250 mL, Memoria Chloride 2-21 Rate: To l 0.9% 17:06: prime line [place] (titrate) 00 and flush 250 mL remaining blood products., Dosing Weight 160.3, kg, Route: IV, Total Volume: 250, Start Date: 10/02/21 11:06:00 [employer] SUPPORT ENGINEER, Duration: 1 day, Stop date: 10/03/21 11:05:00 DESKTOP SUPPORT ENGINEER, Replace Every: 24 hr, 0 Sodium 2022-0 No 250 mL, Memoria Chloride 2-21 Rate: To l 0.9% 17:06: prime line [place] (titrate) 00 and flush 250 mL remaining blood products., Dosing Weight 160.3, kg, Route: IV, Total Volume: 250, Start Date: 10/02/21 11:06:00 DESKTOP SUPPORT ENGINEER, Duration: 1 day, Stop date: 10/03/21 11:05:00 DESKTOP SUPPORT ENGINEER, Replace Every: 24 hr, 0 Sodium 2-0 No 250 mL, Memoria Chloride 2-21 Rate: To l 0.9% 17:06: prime line [place] (titrate) 00 and flush 250 mL remaining blood products., Dosing Weight 160.3, kg, Route: IV, Total Volume: 250, Start Date: 10/02/21 11:06:00 DESKTOP SUPPORT ENGINEER, Duration: 1 day, Stop date: 10/03/21 11:05:00 DESKTOP SUPPORT ENGINEER, Replace Every: 24 hr, 0 Acetaminoph 2020-0 No 1 tab, David katarzyna en 325 MG / 30 Route: PO, l Hydrocodone 12:17: Drug Form: [place] Bitartrate 00 TAB, 5 MG Oral Dosing Tablet Weight 139.409, kg, ONCE, STAT, Start date: 05/11/21 7:17:00 CDT, Stop date: 05/11/21 7:17:00 CDT Acetaminoph 2021-0 No 1 tab, David katarzyna en 325 MG / -30 Route: PO, l Hydrocodone 12:17: Drug Form: [...] en 05-11 Route: PO, l 07:46: ONCE, [place] Dosing Weight 139.409, kg, Start date: 05/11/21 2:46:00 CDT, Stop date: 05/11/21 2:46:00 CDT Acetaminoph 1-0 No 1,000 mg, M emoria en 05-11 Route: PO, l 07:46: ONCE, [place] Dosing Weight 139.409, kg, Start date: 05/11/21 2:46:00 CDT, Stop date: 05/11/21 2:46:00 CDT Iohexol 2020-0 No 100 mL, Memoria 05-11 Route: l 07:23: IVP, Drug [place] 00 Form: SOLN, Dosing Weight 139.409, kg, [...] Staff ONLY" Iohexol No 100 mL, Memoria 930 Route: l 07:23: IVP, Drug [place] Form: [...] one) one) 00:00: - [facility] 00 [facility] Kenalog Kenalog 2019- No 40mg Common (Triamcinol (Triamcinol 0-12 S pirit one) one) 00:00: - [facility] 00 [facility] Kenalog Kenalog 2019-08 No 40mg Common (Triamcinol (Triamcinol 0-12 S pirit one) one) 00:00: - [facility] 00 [facility] Ken[facility] 2019- No 40mg Common (Triamcinol (Triamcinol 0-12 S pirit one) one) 00:00: - [facility] 00 [facility] Kenalog 2019- No 40mg Common (Triamcinol (Triamcinol 0-12 S pirit one) one) 00:00: - [facility] 00 [facility] Kenalog 2019- No 40mg Common (Triamcinol (Triamcinol 0-12 S pirit one) one) 00:00: - [facility] 00 [facility] Kenalog 2019- No 40mg Common (Triamcinol (Triamcinol 0-12 S pirit one) one) 00:00: - [facility] 00 [facility] Kenalog 2019- No 40mg Common (Triamcinol (Triamcinol 0-12 S pirit one) one) 00:00: - [facility] 00 [facility] Kenalog 2019- No 40mg Common (Triamcinol (Triamcinol 0-12 S pirit one) one) 00:00: - [facility] 00 [facility] Kenalog 2019- No 40mg Common (Triamcinol (Triamcinol 0-12 S pirit one) one) 00:00: - [facility] 00 [facility] Kenalog 2019- No 40mg Common (Triamcinol (Triamcinol 0-12 S pirit one) one) 00:00: - [facility] 00 [facility] Kenalog Kenalog 2019- No 40mg Common (Triamcinol (Triamcinol 0-12 S pirit one) one) 00:00: - [facility] 00 [facility] Kenalog Kenalog 2019- No 40mg Common (Triamcinol (Triamcinol 0-12 S pirit one) one) 00:00: - [facility] 00 [facility] Amoxicillin Amoxicillin 2019- 2020- No 1{table BID Amoxicilli -Pot -Pot 0-12 10-22 t} n-Pot Clavulanate Clavulanate 00:00: 00:00 Clavulanat 875-125 MG 875-125 MG 00 :00 e 875-125 MG Promethazin Promethazin 2020-0 2020- No Norah 1 tablet Common e HCl e HCl [id number] [place] as needed Spirit 00:00: 00:00 for n/v - CHI 00 :00 [facility] Kenalog Kenalog 2020-0 No 40mg Common (Triamcinol (Triamcinol 4-06 S pirit one) one) 00:00: - [facility] 00 [facility] Bupivicaine Bupivicaine 2020-0 No 4mL Common [place] 4-06 Spirit 00:00: - [facility] 00 [facility] Kenalog Kenalog 2020-0 No 40mg Common (Triamcinol (Triamcinol 4-06 S pirit one) one) 00:00: - [facility] 00 [facility] Bupivicaine Bupivicaine 2020-0 No 4mL Common [place] 4-06 Spirit 00:00: - [facility] 00 [facility] Kenalog Kenalog 2020-0 No 40mg Common (Triamcinol (Triamcinol 4-06 S pirit one) one) 00:00: - [facility] 00 [facility] Bupivicaine Bupivicaine 2020-0 No 4mL Common [place] 4-06 Spirit 00:00: - [facility] 00 [facility] Kenalog Kenalog 2020-0 No 40mg Common (Triamcinol (Triamcinol 4-06 S pirit one) one) 00:00: - [facility] 00 [facility] Bupivicaine Bupivicaine 2020-0 No 4mL Common [place] 4-06 Spirit 00:00: - [facility] 00 [facility] Kenalog Kenalog 2020-0 No 40mg Common (Triamcinol (Triamcinol 4-06 S pirit one) one) 00:00: - [facility] 00 [facility] Bupivicaine Bupivicaine 2020-0 No 4mL Common [place] 4-06 Spirit 00:00: - [facility] 00 [facility] Kenalog Kenalog 2020-0 No 40mg Common (Triamcinol (Triamcinol 4-06 S pirit one) one) 00:00: - [facility]I 00 [facility] Bupivicaine Bupivicaine 2020-0 No 4mL Common [place] 4-06 Spirit 00:00: - [facility]I 00 [facility] Kenalog Kenalog 2020-0 No 40mg Common (Triamcinol (Triamcinol 4-06 S pirit one) one) 00:00: - [facility]I 00 [facility] Bupivicaine Bupivicaine 2020-0 No 4mL Common [place] 4-06 Spirit 00:00: - [facility] 00 [facility] Kenalog Kenalog 2020-0 No 40mg Common (Triamcinol (Triamcinol 4-06 S pirit one) one) 00:00: - [facility] 00 [facility] Bupivicaine Bupivicaine 2020-0 No 4mL Common [place] 4-06 Spirit 00:00: - [facility] 00 [facility] Kenalog Kenalog 2020-0 No 40mg Common (Triamcinol (Triamcinol 4-06 S pirit one) one) 00:00: - [facility] 00 [facility] Bupivicaine Bupivicaine 2020-0 No 4mL Common [place] 4-06 Spirit 00:00: - [facility]I 00 [facility] Kenalog Kenalog 2020-0 No 40mg Common (Triamcinol (Triamcinol 4-06 S pirit one) one) 00:00: - [facility] 00 [facility] Bupivicaine Bupivicaine 2020-0 No 4mL Common [place] 4-06 Spirit 00:00: - [facility] 00 [facility] Kenalog Kenalog 2020-0 No 40mg Common (Triamcinol (Triamcinol 4-06 S pirit one) one) 00:00: - [facility] 00 [facility] Bupivicaine Bupivicaine 2020-0 No 4mL Common [place] 4-06 Spirit 00:00: - [facility]I 00 [facility] Kenalog Kenalog 2020-0 No 40mg Common (Triamcinol (Triamcinol 4-06 S pirit one) one) 00:00: - [facility]I 00 [facility] Bupivicaine Bupivicaine 2020-0 No 4mL Common [place] 4-06 Spirit 00:00: - [facility] 00 [facility] Kenalog Kenalog 2020-0 No 40mg Common (Triamcinol (Triamcinol 4-06 S pirit one) one) 00:00: - [facility]I 00 [facility] Bupivicaine Bupivicaine 2019-0 No 4mL Common [place] 4-06 Spirit 00:00: - [facility] 00 [facility] ondansetron 2020-0 Yes [id number] 4mg Take 1 [facility] (ZOFRAN 3-11 tablet by ity of ODT) 4 mg 00:00: mouth [place] disintegrat 00 every 8 Medic al ing tablet (eight) Branch hours as needed for Nausea and Vomiting (N/V). benzonatate 2020-0 Yes [id number] 200mg Take 1 [facility] 200 mg 3-11 capsule by ity of capsule 00:00: mouth 3 [place] 00 (three) Medical times Branch daily as needed for Cough for up to 20 doses. ibuprofen 2020-0 Yes [id number] 600mg Take 1 U nivers 600 mg 3-11 tablet by ity of tablet 00:00: mouth [place] 00 every 6 Medical (six) Branch hours as needed for Pain (scale 4-6). ondansetron 2019-0 Yes [id number] 4mg Take 1 [facility] (ZOFRAN 3-11 tablet by ity of ODT) 4 mg 00:00: mouth [place] disintegrat 00 every 8 Medic al ing tablet (eight) Branch hours as needed for Nausea and Vomiting (N/V). benzonatate 2020-0 Yes [id number] 200mg Take 1 [facility] 200 mg 3-11 capsule by ity of capsule 00:00: mouth 3 [place] 00 (three) Medical times Branch daily as needed for Cough for up to 20 doses. ibuprofen 2020-0 Yes [id number] 600mg Take 1 U nivers 600 mg [...] prn for nausea Omeprazole Omeprazole 2017-08 Yes BRANT 1 QD TAKE 1 UT 40 MG Oral 40 MG Oral 2-04 [employer] Capsule Capsule 00:00: DAILY ans Delayed Delayed 00 Release Release Oxycodone 2017-08 No 5 mg, Memoria Hydrochlori 09-08 Route: PO, l de 5 MG 22:24: Drug form: Herm faina Oral Tablet 00 TAB, ONCE, Dosing Weight 139.409, kg, PRN Pain Score 4-6, Start date: 07/09/18 16:24:00 [employer]INEER Oxycodone 2017-08 No 5 mg, Memoria Hydrochlori 09-08 Route: PO, l de 5 MG 22:24: Drug form: Herm faina Oral Tablet 00 TAB, ONCE, Dosing Weight 139.409, kg, PRN Pain Score 4-6, Start date: 07/09/18 16:24:00 [employer] SU[employer] ENGINEER Oxycodone 2017-08 No 5 mg, Memoria Hydrochlori 09-08 Route: PO, l de 5 MG 22:24: Drug form: Herm faina Oral Tablet 00 TAB, ONCE, Dosing Weight 139.409, kg, PRN Pain Score 4-6, Start date: 07/09/18 16:24:00 [employer]TOP [employer] ENGINEER Promethazin 2017-08 No Notes: Do M [...] mine 09-08 (Same as: l 21:26: Benadryl) [place] 00 Ondansetron 2017-08 No Notes: David katarzyna 09-08 [...] a 09-08 final l 21:26: concentrat [place] ion 5 mg/mL Acetaminoph 2017-08 No Notes: [...] PRN Elevated BP, Start date: 07/09/18 15:26:00 [employer]KTOP SUPPORT ENGINEER, Duration: 5 doses or times, Stop [...] katarzyna 09-08 (Same as: l 21:26: Apresoline [place] 00 ) Push over 5 minutes Labetalol 2017-08 No 10 mg, 2 David katarzyna -28 mL, Route: l 21:26: IVP, Drug form: INJ, Q5Min, Dosing Weight 139.409, kg, PRN Elevated BP, Start date: 07/09/18 15:26:00 DESKTOP SUPPORT ENGINEER, Duration: 5 doses or times, Stop [...] mine 09-08 (Same as: l 21:26: Benadryl) [place] 00 Ondansetron 2017-08 No Notes: David katarzyna 09-08 (Same as: l 21:26: Zofran) MEDICATION WASTE Product Size: 4 mg Product Wasted: __0_ mg Meperidine 2017-08 No Notes: Memor ia 09-08 (Same as: l 21:26: Demerol) "Use Precaution in Elderly, Seizure disorders, and Renal impairment " Hydromorpho 2017-08 No Notes: David katarzyna ne 09-08 Same as: l 21:26: Dilaudid [place] 00 Naloxone 2017-08 No Notes: Memoria 09-08 Same as l 21:26: Narcan Ephedrine 2017-08 No Notes: Memori a 09-08 final l 21:26: concentrat [place] ion 5 mg/mL Acetaminoph 2017-08 No Notes: Max Memoria en 09-08 acetaminop l 21:26: hen 4000 [place] 00 mg/day (4 gm/day). (Same as: Tylenol Extra Strength) Fentanyl 2017-08 No Notes: Memoria 09-08 (Same as: l 21:26: Sublimaze) [place] 00 Preservati ve free. Hydralazine 2017-08 No Notes: David katarzyna 09-08 (Same as: l 21:26: Apresoline [place] 00 ) Push over 5 minutes Labetalol 2017-08 No 10 mg, 2 David katarzyna - mL, Route: l 21:26: IVP, Drug form: INJ, Q5Min, Dosing Weight 139.409, kg, PRN Elevated BP, Start date: 07/09/18 15:26:00 [employer], Duration: 5 doses or times, Stop [...] 21:19: INJ, ONCE, Stop date: 07/09/18 15:19:00 [employer] ondansetron 2017-08 No Route: IV, Memoria (ANES) 09-08 Drug form: l 21:19: INJ, ONCE, Stop date: 07/09/18 15:19:00 [employer] ondansetron 2017-08 No Route: IV, Memoria (ANES) 09-08 Drug form: l 21:19: INJ, ONCE, Stop date: 07/09/18 15:19:00 [employer] ceFAZolin 2017-08 No Route: IV, Me moria (ANES) 09-08 Drug form: l 20:43: INJ, ONCE, Stop date: 07/09/18 14:43:00 [employer] lidocaine 2017-08 No Route: IV, Me moria (ANES) 09-08 Drug form: l 20:43: INJ, ONCE, Stop date: 07/09/18 14:43:00 [employer] propofol 2017-08 No Route: IV, Mem oria (ANES) 09-08 Drug form: l 20:43: INJ, ONCE, Stop date: 07/09/18 14:43:00 [employer] fentaNYL 2017-08 No Route: IV, Mem oria (ANES) 09-08 Drug form: l 20:43: INJ, ONCE, Stop date: 07/09/18 14:43:00 [employer] ceFAZolin 2017-08 No Route: IV, Me moria (ANES) 09-08 Drug form: l 20:43: INJ, ONCE, Stop date: 07/09/18 14:43:00 [employer] lidocaine 2017-08 No Route: IV, Me moria (ANES) 09-08 Drug form: l 20:43: INJ, ONCE, Stop date: 07/09/18 14:43:00 [employer] propofol 2017-08 No Route: IV, Mem oria (ANES) 09-08 Drug form: l 20:43: INJ, ONCE, Stop date: 07/09/18 14:43:00 [employer] fentaNYL 2017-08 No Route: IV, Mem oria (ANES) 09-08 Drug form: l 20:43: INJ, ONCE, Stop date: 07/09/18 14:43:00 [employer] ceFAZolin 2017-08 No Route: IV, Me moria (ANES) 09-08 Drug form: l 20:43: INJ, ONCE, Stop date: 07/09/18 14:43:00 [employer] lidocaine 2017-08 No Route: IV, Me moria (ANES) 09-08 Drug form: l 20:43: INJ, ONCE, Stop date: 07/09/18 14:43:00 [employer] propofol 2017-08 No Route: IV, Mem oria (ANES) 09-08 Drug form: l 20:43: INJ, ONCE, Stop date: 07/09/18 14:43:00 [employer] SU[employer] ENGINEER fentaNYL 2017-08 No Route: IV, Mem oria (ANES) 09-08 Drug form: l 20:43: INJ, ONCE, Stop date: 07/09/18 14:43:00 [employer] metoclopram 2017-08 No Route: IV, Memoria debbie (ANES) 09-08 Drug form: l 20:38: INJ, ONCE, Stop date: 07/09/18 14:38:00 [employer]INE[employer] famotidine 2017-08 No Route: IV, M emoria (ANES) 09-08 Drug form: l 20:38: INJ, ONCE, Stop date: 07/09/18 14:38:00 [employer] dexamethaso 2017-08 No Route: IV, Memoria ne (ANES) 09-08 Drug form: l 20:38: INJ, ONCE, Stop date: 07/09/18 14:38:00 [employer]INE[employer] midazolam 2017-08 No Route: IV, Me moria (ANES) 09-08 Drug form: l 20:38: SOLN, ONCE, Stop date: 07/09/18 14:38:00 [employer] ENGINEER metoclopram 2017-08 No Route: IV, Memoria debbie (ANES) 09-08 Drug form: l 20:38: INJ, ONCE, [place] 00 Stop date: 07/09/18 14:38:00 [employer]INEER famotidine 2017-08 No Route: IV, Thomas emoria (ANES) 09-08 Drug form: l 20:38: INJ, ONCE, [place] 00 Stop date: 07/09/18 14:38:00 [employer] ENGINEER dexamethaso 2017-08 No Route: IV, Memoria ne (ANES) 09-08 Drug form: l 20:38: INJ, ONCE, [place] 00 Stop date: 07/09/18 14:38:00 [employer] ENGINEER midazolam 2017-08 No Route: IV, Me moria (ANES) 09-08 Drug form: l 20:38: SOLN, [place] ONCE, Stop date: 07/09/18 14:38:00 [employer] ENGINEER metoclopram 2017-08 No Route: IV, Memoria debbie (ANES) 09-08 Drug form: l 20:38: INJ, ONCE, [place] 00 Stop date: 07/09/18 14:38:00 [employer]INEER famotidine 2017-08 No Route: IV, Thomas emoria (ANES) 09-08 Drug form: l 20:38: INJ, ONCE, Stop date: 07/09/18 14:38:00 [employer] dexamethaso 2017-08 No Route: IV, Memoria ne (ANES) 09-08 Drug form: l 20:38: INJ, ONCE, [place] 00 Stop date: 07/09/18 14:38:00 [employer]INEER midazolam 2017-08 No Route: IV, moria (ANES) 09-08 Drug form: l 20:38: SOLN, [place] 00 ONCE, Stop date: 07/09/18 14:38:00 [employer]ER Lactated 2017-08 No Route: IV, Mem oria Ringers 09-08 Total l Injection 19:45: Volume: Kelly nn IV (ANES) 00 1,000, 1000 mL Start date: 07/09/18 13:45:00 [employer]ER, Stop date: 07/09/18 14:45:00 [employer] ENGINEER Lactated 2017-08 No Route: IV, Mem oria Ringers 09-08 Total l Injection 19:45: Volume: Kelly nn IV (ANES) 00 1,000, 1000 mL Start date: 07/09/18 13:45:00 [employer] ENGINEER, Stop date: 07/09/18 14:45:00 [employer]INEER Lactated 2017-08 No Route: IV, Mem oria Ringers -28 Total l Injection 19:45: Volume: Kelly nn IV (ANES) 00 1,000, 1000 mL Start date: 07/09/18 13:45:00 [employer] ENGINEER, Stop date: 07/09/18 14:45:00 [employer]INEER Famotidine 2017-08 No Notes: Memor ia 40 MG Oral -28 (Same as: l Tablet 19:37: Pepcid) [place] [Pepcid] 00 Famotidine 2017-08 No Notes: Memor ia 40 MG Oral 1-28 (Same as: l Tablet 19:37: Pepcid) [place] [Pepcid] 00 Famotidine 2017-08 No Notes: Memor ia 40 MG Oral -28 (Same as: l Tablet 19:37: Pepcid) [place] [Pepcid] 00 Celebrex 2017-08 No 200 mg, Memori a - Route: PO, l 19:00: Drug form: [place] MARITZA Brown CAP, Dosing Weight 140.909, kg, Start date: 07/09/18 13:00:00 [employer], Duration: 30 day, Stop date: 08/08/18 12:59:00 [employer]INEER Lidocaine 2017-08 No Notes: Memori a Hydrochlori -28 Preservati l de 10 MG/ML 19:00: ve free. He rmann Injectable 00 (Same as: Solution Xylocaine MPF) Famotidine 2017-08 No Notes: Memor ia -28 (Same as: l 19:00: Pepcid) [place] 00 Can be dilute in 5-10cc NS IVP: Slow IV push over at least 2 minutes. Celebrex 2017-08 No 200 mg, Memori a -28 Route: PO, l 19:00: Drug form: [place] MARITZA Brown CAP, Dosing Weight 140.909, kg, Start date: 07/09/18 13:00:00 [employer], Duration: 30 day, Stop date: 08/08/18 12:59:00 [employer]INEER Lidocaine 2017-08 No Notes: Memori a Hydrochlori 1-28 Preservati l de 10 MG/ML 19:00: ve free. He rmann Injectable 00 (Same as: Solution Xylocaine MPF) Famotidine 2017-08 No Notes: Memor ia 09-08 (Same as: l 19:00: Pepcid) [place] 00 Can be dilute in 5-10cc NS IVP: Slow IV push over at least 2 minutes. Celebrex 2017-08 No 200 mg, Memori a 09-08 Route: PO, l 19:00: Drug form: [place] 00 BRONWYN CALIXTOALL, Dosing Weight 140.909, kg, Start date: 07/09/18 13:00:00 [employer] ENGINEER, Duration: 30 day, Stop date: 08/08/18 12:59:00 [employer]TOP SUPPORT ENGINEER Lidocaine 2017-08 No Notes: Memori a Hydrochlori 09-08 Preservati l de 10 MG/ML 19:00: ve free. He rmann Injectable 00 (Same as: Solution Xylocaine MPF) Famotidine 2017-08 No Notes: Memor ia 09-08 (Same as: l 19:00: Pepcid) [place] 00 Can be dilute in 5-10cc NS IVP: Slow IV push over at least 2 minutes. Zofran 2017-08 No 4 mg, Memoria 09-08 Route: l 18:53: IVP, Drug [place] 00 form: INJ, ONCE, Dosing Weight 139.409, kg, Priority: STAT, Start date: 07/09/18 12:53:00 [employer]INEER, Stop date: 07/09/18 12:53:00 [employer]KTOP SUPPORT ENGINEER Zofran 2017-08 No 4 mg, Memoria 09-08 Route: l 18:53: IVP, Drug [place] 00 form: INJ, ONCE, Dosing Weight 139.409, kg, Priority: STAT, Start date: 07/09/18 12:53:00 [employer] ENGINEER, Stop date: 07/09/18 12:53:00 [employer] SU[employer] ENGINEER Zofran 2017-08 No 4 mg, Memoria 09-08 Route: l 18:53: IVP, Drug [place] 00 form: INJ, ONCE, Dosing Weight 139.409, kg, Priority: STAT, Start date: 07/09/18 12:53:00 [employer] ENGINEER, Stop date: 07/09/18 12:53:00 [employer]TOP [employer] ENGINEER Tylenol 2017-08 No 1,000 mg, Memor ia 09-08 Route: PO, l 18:20: ONCE, [place] Dosing Weight 140.909, kg, Priority: STAT, Start date: 07/09/18 12:20:00 [employer] ENGINEER, Stop date: 07/09/18 12:20:00 [employer]TOP [employer] ENGINEER Tylenol 2017-08 No 1,000 mg, Memor ia 09-08 Route: PO, l 18:20: ONCE, [place] Dosing Weight 140.909, kg, Priority: STAT, Start date: 07/09/18 12:20:00 DESKTOP SUPPORT ENGINEER, Stop date: 07/09/18 12:20:00 DESKTOP SUPPORT ENGINEER Tylenol 2017-08 No 1,000 mg, Memor ia 09-08 Route: PO, l 18:20: ONCE, [place] Dosing Weight 140.909, kg, Priority: STAT, Start date: 07/09/18 12:20:00 [employer]KTOP SU[employer] ENGINEER, Stop date: 07/09/18 12:20:00 [employer]KTOP SU[employer] ENGINEER Insulin 2017-08 No Notes: Memoria Lispro 09-08 (Same as: l 18:18: Humalog ) [place] 00 Roll in palms of hands gently; [...] Lactate date: 0.028 07/09/18 MEQ/ML 12:18:00 Injectable [employer]INEER, Solution Duration: 30 day, Stop date: 08/08/18 12:17:00 [employer]KTOP SU[employer] ENGINEER, 2.75, m2 Insulin 2017-08 No Notes: Memoria [...] 09-08 Rate: 25 l 0.0014 18:18: ml/hr, [place] MEQ/ML / 00 Infuse Potassium over: 40 Chloride hr, Route: 0.004 IV, Dosing MEQ/ML / Weight Sodium 140.909 Chloride kg, Total 0.103 Volume: MEQ/ML / 1,000, Sodium Start Lactate date: 0.028 07/09/18 MEQ/ML 12:18:00 Injectable [employer], Solution Duration: 30 day, Stop date: 08/08/18 12:17:00 DESKTOP SUPPORT ENGINEER, 2.75, m2 Insulin 2017-08 No Notes: Memoria [...] Lactate date: 0.028 07/09/18 MEQ/ML 12:18:00 Injectable [employer]INEER, Solution Duration: 30 day, Stop date: 08/08/18 12:17:00 [employer]KTOP SUPPORT ENGINEER, 2.75, m2 ceFAZolin + 2017-08 No Notes: David katarzyna sterile 09-08 (Same As: l water 30 mL 12:00: Ancef, Herm faina 00 Kefzol) MEDICATION WASTE Product Size: 1000 mg Product Wasted: ___ mg Lactated 2017-08 No 1,000 mL, David katarzyna Ringers 09-08 Rate: KVO l Injection 12:00: rate, [place] IV 1,000 mL 00 Route: IV, Dosing Weight 140.909 kg, Total Volume: 1,000, Start date: 07/09/18 6:00:00 DESKTOP SU[employer] ENGINEER, Duration: 30 day, Stop date: 08/08/18 5:59:00 DESKTOP SUPPORT ENGINEER, 2.75, m2 ceFAZolin + 2017-08 No [...] Total Volume: 1,000, Start date: 07/09/18 6:00:00 DESKTOP SUPPORT ENGINEER, Duration: 30 day, Stop date: 08/08/18 5:59:00 DESKTOP SUPPORT ENGINEER, 2.75, m2 ceFAZolin + 2017-08 No [...] Total Volume: 1,000, Start date: 07/09/18 6:00:00 DESKTOP SUPPORT ENGINEER, Duration: 30 day, Stop date: 08/08/18 5:59:00 DESKTOP SUPPORT ENGINEER, 2.75, m2 Norvasc 2017-08 Yes See Memoria 09-07 Instructio l 18:43: ns, PO [place] 00 Daily, 0 Refill(s) Norvasc 2017-08 Yes [...] Notes: Memoria 0-05 (Same l 11:34: as:MORPhin [place] 00 e Sulfate) Morphine 2017-08 No Notes: [...] CDT, Stop date: 05/16/18 6:01:00 CDT Dexamethaso 2018-1 No 8 mg, Memor ia ne 0-05 Route: IM, l 11:01: ONCE, Dosing Weight 144.091, kg, Priority: STAT, Start date: 05/16/18 6:01:00 CDT, Stop date: 05/16/18 6:01:00 CDT Zofran ODT 2018-1 No 4 mg, Memori a 0-05 Route: PO, l 11:01: Drug form: [place] 00 TABDIS, ONCE, Dosing Weight 144.091, kg, Priority: STAT, Start date: 05/16/18 6:01:00 CDT, Stop date: 05/16/18 6:01:00 CDT Morphine 2018-1 No 8 mg, Memoria 0-05 Route: IM, l 11:01: ONCE, Dosing Weight 144.091, kg, Priority: STAT, Start date: 05/16/18 6:01:00 CDT, Stop date: 05/16/18 6:01:00 CDT Dexamethaso 2018-1 No 8 mg, Memor ia ne 0-05 [...] 0-05 Route: IM, l 11:01: ONCE, [place] Dosing Weight 144.091, kg, Priority: STAT, Start date: 05/16/18 6:01:00 CDT, Stop date: 05/16/18 6:01:00 CDT Zofran Zofran Yes Norah 1 tablet Commo n [place] as needed [facility] Losartan Losartan Yes Norah 1 tablet C ommon Potassium-H [facility]-H [place] [facility] Hydrocodone Yes Norah 1 tablet Common -Acetaminop -Acetaminop [place] as needed [facility] Adderall XR Adderall XR Yes Norah 1 capsule Common [place] in the [facility] Omeprazole Omeprazole Yes Norah 1 capsule Common [place] 30 minutes [facility] before [facility] Dicyclomine Dicyclomine Yes Norah 1 tablet Common HCl HCl [place] [facility] Omeprazole Omeprazole No QD Omeprazole 40 [...] CTZ 50-12.5 HCTZ MG MG 50-12.5 MG Pantoprazol Pantoprazol No Pantoprazo e Sodium 40 e Sodium 40 le Sodium MG MG 40 MG Losartan Losartan No Losartan Potassium Potassium Potassium 100 MG 100 MG 100 MG Topiramate Topiramate No 1{table QD Topiramate 25 MG 25 MG t} 25 MG Losartan Losartan No 1{table QD Losartan Potassium Potassium t} Potassium 100 MG 100 MG 100 MG Adderall XR Adderall XR No 1{capsu QD Adderall 20 MG 20 MG le_in_t XR 20 MG he_morn ing} Zofran 8 MG Zofran 8 MG No 1{table Zofran 8 t_as_ne MG eded} Omeprazole Omeprazole No QD Omeprazole 40 MG 40 MG 40 MG Ondansetron Ondansetron No Ondansetro HCl 4 MG HCl 4 MG n HCl 4 MG traMADol traMADol No QD traMADol HCl 50 MG HCl 50 MG HCl 50 MG Hydrocodone Hydrocodone No 1{table Hydrocodon -Acetaminop -Acetaminop [...] Potassium 100 MG 100 MG 100 MG Omeprazole Omeprazole No QD Omeprazole 40 [...] MG HCl 50 MG HCl 50 MG Zofran 8 MG Zofran 8 MG No 1{table Zofran 8 t_as_ne MG eded} Pantoprazol Pantoprazol No Pantoprazo e Sodium 40 [...] MG HCl 50 MG HCl 50 MG Dicyclomine Dicyclomine No 1{table Dicyclomin HCl 20 MG HCl 20 MG t} e HCl 20 MG Pantoprazol Pantoprazol No Pantoprazo e Sodium [...] MG eded} No known No Methodi medications [facility] l Immunizations Ordered Filled Immunization Date Status Comments [facility] e Immunization Name Name influenza virus 2022-05-19 Completed [facility], 15:57:00 [place] inactivated Influenza, 2022-05-19 Completed [facility] injectable, 00:00:00 quadrivalent (afluria, fluzone) Influenza, 2022-05-19 Completed [facility] injectable, 00:00:00 quadrivalent (afluria, fluzone) Influenza, 2022-05-19 Completed [facility] injectable, 00:00:00 quadrivalent (afluria, fluzone) Influenza, 2022-05-19 Completed [facility] injectable, 00:00:00 quadrivalent (afluria, fluzone) Influenza, 2022-05-19 Completed [facility] injectable, 00:00:00 quadrivalent (afluria, fluzone) COVID-19 Pfizer 12 2021-05-06 [facility] Kenalog Kenalog 2020-05-23 Completed [facility] - (Triamcinolone) (Triamcinolone) 11:35:00 [facility] Kenalog Kenalog 2020-05-23 Completed [facility] - (Triamcinolone) (Triamcinolone) 11:35:00 [facility] Kenalog Kenalog 2020-05-23 Completed [facility] - (Triamcinolone) (Triamcinolone) 11:35:00 [facility] Kenalog Kenalog 2020-05-23 Completed [facility] - (Triamcinolone) (Triamcinolone) 11:35:00 [facility] Kenalog Kenalog 2020-05-23 Completed [facility] - (Triamcinolone) (Triamcinolone) 11:35:00 [facility] Kenalog Kenalog 2020-05-23 Completed [facility] - (Triamcinolone) (Triamcinolone) 11:35:00 [facility] Kenalog Kenalog 2020-05-23 Completed [facility] - (Triamcinolone) (Triamcinolone) 11:35:00 [facility] Bupivicaine [place]annah Bupivicaine [place] 2019-11-16 Completed [facility] - 11:23:00 [facility] Bupivicaine [place] Bupivicaine [place] 2019-11-16 Completed [facility] - 11:23:00 [facility] Bupivicaine [place] Bupivicaine [place] 2019-11-16 Completed [facility] - 11:23:00 [facility] Bupivicaine [place] Bupivicaine [place] 2019-11-16 Completed [facility] - 11:23:00 [facility] Bupivicaine [place] Bupivicaine [place] 2019-11-16 Completed [facility] - 11:23:00 [facility] Bupivicaine [place] Bupivicaine [place] 2019-11-16 Completed [facility] - 11:23:00 [facility] Bupivicaine [place] Bupivicaine [place] 2019-11-16 Completed [facility] - 11:23:00 [facility] Kenalog Kenalog 2019-11-16 Completed [facility] - (Triamcinolone) (Triamcinolone) 11:22:00 [facility] Kenalog Kenalog 2019-11-16 Completed [facility] - (Triamcinolone) (Triamcinolone) 11:22:00 [facility] 2019[facility]-16 [facility] - (Triamcinolone) (Triamcinolone) 11:22:00 [facility] 2019-[facility]16 Com[facility] - (Triamcinolone) (Triamcinolone) 11:22:00 [facility] 2019-11-16 Completed [facility] - (Triamcinolone) (Triamcinolone) 11:22:00 [facility] 2019-11-16 Completed [facility] - (Triamcinolone) (Triamcinolone) 11:22:00 [facility] 2019-11-16 Completed [facility] - (Triamcinolone) (Triamcinolone) 11:22:00 [facility] Fluzone 2018-06-03 Completed [facility] Quadrivalent 0.5 ML 14:35:00 Intramuscular Suspension COVID-19 Pfizer 12 Unknown Completed [facility] (PURPLE-DILUTE) COVID-19 Pfizer 12 Unknown Completed [facility] ([facility]-DIL[facility]) Influenza, Unknown Completed [facility] injectable, quadrivalent (afluria, fluzone) Meningococcal Group Meningococcal Group Unknown Completed [facility] Pneumovax (PPSV23) Pneumovax (PPSV23) Unknown Completed [facility] Meningococcal Group Meningococcal Group Unknown Completed [facility] Pneumovax (PPSV23) Pneumovax (PPSV23) Unknown Completed [facility] Meningococcal Group Meningococcal Group Unknown Completed [facility] Pneumovax (PPSV23) Pneumovax (PPSV23) Unknown Completed [facility] Meningococcal Group Meningococcal Group Unknown Completed [facility] Pneumovax (PPSV23) Pneumovax (PPSV23) Unknown Completed [facility] Meningococcal Group Meningococcal Group Unknown Completed [facility] Pneumovax (PPSV23) Pneumovax (PPSV23) Unknown Completed [facility] Meningococcal Group Meningococcal Group Unknown Completed [facility] Pneumovax (PPSV23) Pneumovax (PPSV23) Unknown Completed [facility] Meningococcal Group Meningococcal Group Unknown Completed [facility] Pneumovax (PPSV23) Pneumovax (PPSV23) Unknown Completed [facility] Meningococcal Group Meningococcal Group Unknown Completed [facility] Pneumovax (PPSV23) Pneumovax (PPSV23) Unknown Completed [facility] influenza virus Unknown Completed [facility] vaccine, [place] inactivated Vital Signs Vital Name Observation Time Observation Value Comments Source Body height 2023-04-23 190.5 cm [facility] 20:33:00 Body weight 2023-04-23 106.595 kg [facility] 20:33:00 BMI 2023-04-23 29.37 kg/m2 [facility] 20:33:00 Systolic blood 2023-04-23 129 mm[Hg] [facility] pressure 19:30:00 Diastolic blood 2023-04-23 88 mm[Hg] [facility] pressure 19:30:00 Heart rate 2023-04-23 92 /min [facility] 19:30:00 Body temperature 2023-04-23 36.28 Chrissie [facility] 19:30:00 Respiratory rate 2023-04-23 18 /min [facility] 19:30:00 Body height 2023-04-23 190.5 cm [facility] 19:30:00 Body weight 2023-04-23 153.588 kg [facility] 19:30:00 BMI 2023-04-23 42.32 kg/m2 [facility] 19:30:00 Oxygen saturation 2023-04-23 98 /min [facility] in Arterial blood 19:30:00 by Pulse oximetry Systolic blood 2023-03-27 178 mm[Hg] [facility] pressure 01:00:00 [facility] Diastolic blood 2023-03-27 111 mm[Hg] [facility] pressure 01:00:00 [facility] Heart rate 2023-03-27 74 /min [facility] 01:00:00 [facility] Body temperature 2023-03-27 36.67 Chrissie [facility] 01:00:00 [facility] Oxygen saturation 2023-03-27 99 /min [facility] in Arterial blood 01:00:00 [facility] by Pulse oximetry [place] Respiratory rate 2023-03-26 18 /min [facility] 21:22:00 [facility] Body height 2023-03-26 190.5 cm [facility] 21:22:00 [facility] Body weight 2023-03-26 150.141 kg [facility] 21:22:00 [facility] BMI 2023-03-26 41.37 kg/m2 [facility] 21:22:00 [facility] Body height 2023-03-13 190.5 cm [facility] 18:23:00 Body weight 2023-03-13 158 kg [facility] 18:23:00 BMI 2023-03-13 43.54 kg/m2 [facility] 18:23:00 HEIGHT 2022-11-14 184.2 cm 14:00:00 WEIGHT 2022-11-14 165.518 kg 14:00:00 HEIGHT 2022-11-14 184.2 cm 14:00:00 WEIGHT 2022-11-14 165.518 kg 14:00:00 Body height 2022-09-28 160 cm [facility] 21:52:00 Body weight 2022-09-28 158.759 kg [facility] 21:52:00 BMI 2022-09-28 62.00 kg/m2 [facility] 21:52:00 height 2022-09-27 72 [in_i] [facility] - 14:20:00 [facility] weight 2022-09-27 360.1 [lb_av] [facility] - 14:20:00 [facility] temperature 2022-09-27 97.3 [degF] [facility] - 14:20:00 [facility] bmi 2022-09-27 48.83 kg/m2 [facility] - 14:20:00 [facility] oximetry 2022-09-27 99 % [facility] - 14:20:00 [facility] respiratory rate 2022-09-27 18 /min [facility] - 14:20:00 [facility] blood pressure 2022-09-27 138 mm[Hg] [facility] - systolic 14:20:00 [facility] blood pressure 2022-09-27 75 mm[Hg] [facility] - diastolic 14:20:00 [facility] Body height 2022-09-20 190.5 cm [facility] 14:46:00 Body weight 2022-09-20 158.759 kg [facility] 14:46:00 BMI 2022-09-20 43.75 kg/m2 [facility] 14:46:00 Body height 2022-07-27 190.5 cm [facility] 14:41:00 Body weight 2022-07-27 158.305 kg [facility] 14:41:00 BMI 2022-07-27 43.62 kg/m2 [facility] 14:41:00 height 2022-06-22 72 [in_i] [facility] - 11:20:00 [facility] weight 2022-06-22 343 [lb_av] [facility] - 11:20:00 [facility] temperature 2022-06-22 96.5 [degF] [facility] - 11:20:00 [facility] bmi 2022-06-22 46.51 kg/m2 [facility] - 11:20:00 [facility] oximetry 2022-06-22 97 % [facility] - 11:20:00 [facility] respiratory rate 2022-06-22 18 /min [facility] - 11:20:00 [facility] blood pressure 2022-06-22 141 mm[Hg] [facility] - systolic 11:20:00 [facility] blood pressure 2022-06-22 74 mm[Hg] [facility] - diastolic 11:20:00 [facility] Systolic blood 2022-05-16 110 mm[Hg] [facility] pressure 20:28:00 Diastolic blood 2022-05-16 72 mm[Hg] [facility] pressure 20:28:00 Heart rate 2022-05-16 60 /min [facility] 20:28:00 Body temperature 2022-05-16 36.11 Chrissie [facility] 20:17:00 Body height 2022-05-16 190.5 cm [facility] 20:17:00 Body weight 2022-05-16 158.305 kg [facility] 20:17:00 BMI 2022-05-16 43.62 kg/m2 [facility] 20:17:00 height 2021-04-06 72 [in_i] [facility] - 14:30:00 [facility] weight 2021-04-06 319 [lb_av] [facility] - 14:30:00 [facility] temperature 2021-04-06 98 [degF] [facility] - 14:30:00 [facility] bmi 2021-04-06 43.26 kg/m2 [facility] - 14:30:00 [facility] blood pressure 2021-04-06 121 mm[Hg] [facility] - systolic 14:30:00 [facility] blood pressure 2021-04-06 76 mm[Hg] [facility] - diastolic 14:30:00 [facility] height 2020-07-12 72 [in_i] [facility] - 16:30:00 [facility] weight 2020-07-12 318.3 [lb_av] [facility] - 16:30:00 [facility] temperature 2020-07-12 97.5 [degF] [facility] - 16:30:00 [facility] bmi 2020-07-12 43.16 kg/m2 [facility] - 16:30:00 [facility] oximetry 2020-07-12 97 % [facility] - 16:30:00 [facility] respiratory rate 2020-07-12 18 /min [facility] - 16:30:00 [facility] blood pressure 2020-07-12 129 mm[Hg] [facility] - systolic 16:30:00 [facility] blood pressure 2020-07-12 64 mm[Hg] [facility] - diastolic 16:30:00 [facility] height 2020-05-23 72 [in_i] [facility] - 11:20:00 [facility] weight 2020-05-23 314.4 [lb_av] [facility] - 11:20:00 [facility] temperature 2020-05-23 97.2 [degF] [facility] - 11:20:00 [facility] bmi 2020-05-23 42.64 kg/m2 [facility] - 11:20:00 [facility] oximetry 2020-05-23 98 % [facility] - 11:20:00 [facility] respiratory rate 2020-05-23 18 /min [facility] - 11:20: [facility] blood pressure 2020-05-23 140 mm[Hg] [facility] - systolic 11:20:00 [facility] blood pressure 2020-05-23 74 mm[Hg] [facility] - diastolic 11:20:00 [facility] Systolic (mm Hg) 2023-02-19 [facility] rmann 22:00:00 Diastolic (mm Hg) 2023-02-19 [facility] ermann 22:00:00 Temperature Oral 2023-02-19 97.9 F [facility] rmann (F) 12:16:00 Temperature Oral 2023-02-18 97.9 F [facility] rmann (F) 21:30:00 [facility] 2023-02-14 6 [ft_i] [facility] Sadi n 16:02:00 [facility] Calculated 2023-02-[address] [facility] Anya faina 16:02:00 [facility] Systolic blood 2023-01-07 167 mm[Hg] [facility] pressure 21:28:57 Hospital Diastolic blood 2023-01-07 79 mm[Hg] [facility] pressure 21:28:57 Hospital Heart rate 2023-01-07 104 /min [facility] 21:28:57 Hospital Body temperature 2023-01-07 35.67 Chrissie [facility] 21:28:57 [facility] Respiratory rate 2023-01-07 16 /min [facility] 21:28:57 Hospital Oxygen saturation 2023-01-07 96 /min [facility] in Arterial blood 21:28:57 Hospital by Pulse oximetry Body height 2023-01-07 190.5 cm [facility] 03:49:11 Hospital Body weight 2023-01-07 162.751 kg [facility] 03:49:11 Hospital BMI 2023-01-07 44.85 kg/m2 [facility] 03:49:11 Hospital Systolic blood 2022-11-14 149 mm[Hg] [facility] pressure 14:13:00 [facility] Diastolic blood 2022-11-14 93 mm[Hg] [facility] pressure 14:13:00 [facility] Heart rate 2022-11-14 73 /min [facility] 14:13:00 [facility] Body temperature 2022-11-14 36.28 Chriss[address] [facility] Body height 2022-11-14 184.2 cm [facility]00 [facility] Body weight 2022-11-14 165.518 kg [facility] 14:00:00 [facility] BMI 2022-11-14 48.81 kg/m2 [facility] 14:00:00 [facility] Respitory Rate 2022-05-19 [facility] 14:30:00 Respitory Rate 2022-05-19 [facility] 14:00:00 Systolic (mm Hg) 2022-05-[address] [facility] 14:00:00 Diastolic (mm Hg) 2022-05-19 [facility] ermann 14:00:00 Respitory Rate 2022-05-19 [facility] 13:00:00 Systolic (mm Hg) 2022-05-19 [facility] rmann 13:00:00 Diastolic (mm Hg) 2022-05-19 [facility] ermann 13:00:00 Temperature Oral 2022-05-19 98.3 F [facility] rmann (F) 12:36:32 Systolic (mm Hg) 2022-05-19 [facility] rmann 12:00:00 Diastolic (mm Hg) 2022-05-19 [facility] ermann 12:00:00 Temperature Oral 2022-05-19 97.4 F [facility] rmann (F) 08:24:17 Temperature Oral 2022-05-19 98.5 F [facility] rmann (F) 03:59:28 Height 2022-05-17 190.5 cm [facility] 04[facility] Weight 2022-05-17 [facility] 04:[facility]00 BMI Calculated 2022-05-17 [facility] 04:38:00 Heart Rate 2022-05-17 [facility] 04:04:00 Height 2022-05-16 190.5 cm [facility] 22:05:00 BMI Calculated 2022-05-16 [facility] 22:05:00 Weight 2022-05-16 [facility] 22:05:00 Heart Rate 2022-05-16 [facility] 22:05:00 Systolic (mm Hg) 2022-05-[address] [facility] 00:29:00 Diastolic (mm Hg) 2022-05-13 [facility] ermann 00:29:00 Respitory Rate 2022-05-13 [facility] [...] n 09:38:00 Temperature Oral 2022-05-12 [address] [facility] (F) 09:38:00 Heart Rate 2021-10-10 [facility] 14:08:15 Systolic (mm Hg) 2021-10-10 [facility] 14:07:42 Diastolic (mm Hg) 2021-10-[address] [facility] ermann 14:07:42 Heart Rate 2021-10-10 [facility] [...] n 13:47:41 Temperature Oral 2021-10-05 [address] [facility] Harpreet rmann (F) 13:47:17 Heart Rate 2021-10-05 [facility] 09:39:43 Respitory Rate 2021-10-05 [facility] 09:39:43 Systolic (mm Hg) 2021-10-05 [facility] 09:39:35 Diastolic (mm Hg) 2021-10-05 [facility] 09:39:35 Temperature Oral 2021-10-05 [address] [facility] Harpreet rmann (F) 09:38:41 Respitory Rate 2021-10-05 [facility] 06:44:26 Systolic (mm Hg) 2021-10-05 [facility] 06:44:17 Diastolic (mm Hg) 2021-10-05 [facility] ermann 06:44:17 Temperature Oral 2021-10-05 [address] [facility] Harpreet rmann (F) 06:42:51 Height 2021-10-03 190.5 cm [facility] 12:40:00 Weight 2021-10-03 [facility] 12:40:00 BMI Calculated 2021-10-03 [facility] 12:40:00 Height 2021-10-02 190.5 cm [facility] 16:30:00 Weight 2021-10-02 [facility] 16[facility]30:00 BMI Calculated 2021-10-02 [facility] 16:30:00 Systolic (mm Hg) 2021-05-11 [facility] rmann 13:50:00 Diastolic (mm Hg) 2021-05-11 [facility] ermann 13:50:00 Temperature Oral 2021-05-11 [address] [facility] Harpreet rmann (F) 13:50:00 Systolic (mm Hg) 2021-05-11 [facility] 12:22:00 Diastolic (mm Hg) 2021-05-11 [facility] ermann 12:22:00 Systolic (mm Hg) 2021-05-[address] [facility] 11:21:00 Diastolic (mm Hg) 2021-05-11 [facility] ermann 11:21:00 Respitory Rate 2021-05-11 [facility] 11:21:00 Respitory Rate 2021-05-11 [facility] 10:42:00 Respitory Rate 2021-05-11 [facility] 09:02:00 Temperature Oral 2021-05-11 98.4 F Magdalene Mullins rmann (F) 08:30:00 Heart Rate 2021-05-11 [facility] 06:50:00 Heart Rate 2021-05-11 [facility] 06:18:00 Heart Rate 2021-05-11 [facility] 00:55:00 Temperature Oral 2021-05-11 [address] [facility] Harpreet rmann (F) 00:55:00 BP Systolic 2018-10-02 155 mm[Hg] Location: LUE; [facility] 15:26:00 Position: Sitting BP Diastolic 2018-10-02 88 mm[Hg] Location: LUE; [facility] 15:26:00 Position: Sitting Height 2018-10-02 75 [in_us] [facility] 15:26:00 Weight 2018-10-02 302 [lb_av] [facility] 15:26:00 Body Mass Index 2018-10-02 37.75 kg/m2 [facility] Calculated 15:26:00 Temperature 2018-10-02 98 [degF] Method: Oral [facility] 15:26:00 Heart Rate 2018-10-02 63 /min Location: [facility] 15:26:00 Apical; BP Systolic 2018-09-25 154 mm[Hg] Location: LUE; [facility] 10:26:00 Position: Sitting BP Diastolic 2018-09-25 98 mm[Hg] Location: LUE; [facility] 10:26:00 Position: Sitting Heart Rate 2018-09-25 70 /min Quality: Normal [facility] 10:26:00 BP Systolic 2018-09-25 169 mm[Hg] Location: LUE; [facility] 10:25:00 Position: Sitting BP Diastolic 2018-09-25 65 mm[Hg] Location: LUE; [facility] 10:25:00 Position: Sitting Heart Rate 2018-09-25 67 /min Quality: Normal [facility] 10:25:00 Height 2018-09-25 75 [in_us] [...] BP Systolic 2018-06-03 136 mm[Hg] Location: [place]; [facility] 14:09:00 Position: Sitting BP Diastolic 2018-06-03 75 mm[Hg] Location: [place]; [facility] 14:09:00 Position: Sitting Height 2018-06-03 75 [in_us] [facility] 14:09:00 Weight 2018-06-03 317 [lb_av] [facility] 14:09:00 Body Mass Index 2018-06-03 39.62 kg/m2 [facility] Cal[facility] 14:09:00 Temperature 2018-06-03 97.9 [degF] Method: Oral [facility] 14:09:00 Heart Rate 2018-06-03 74 /min [...] PANEL 2023-03-26 22:04:00 Magnolia Montes De Oca [facility] ([id number]) [facility] SEDIMENTATION RATE 2023-03-26 22:04:00 Magnolia Montes De Oca [facility] CBC WITH DIFF 2023-03-26 22:04:00 Magnolia Montes De Oca [facility] ASSIGNMENT OF BENEFITS 2023-03-26 21:41:01 Doctor Unassigned, [facility] [place] [facility] CONSENT/REFUSAL FOR 2023-03-26 20:58:29 Doctor Unassmargaux, [facility] DIAGNOSIS AND TREATMENT [place] [facility] Secondary repair of dura 2023-02-15 03:17:00 Mem orial [place] for cerebrospinal fluid leak, anterior, middle or posterior cranial fossa following surgery of the skull base; by free tissue graft (eg, pericranium, fascia, tensor fascia adriano, adipose tissue, homologous or synthetic grafts) CBC WITH PLATELET AND 2023-01-07 09:31[facility] COMPREHENSIVE METABOLIC 2023-01-07 09:31:00 [facility] PANEL ESTIMATED GFR 2023-01-07 09:31:00 [facility] BLOOD CULTURE, AEROBIC & 2023-01-07 05:36:00 [facility] ANAEROBIC BLOOD CULTURE, AEROBIC & 2023-01-07 05:34:[address] [facility] [address] HEAD WO CONTRAST 2023-01-07 03:33:37 Karen Mendoza [facility] URINE CULTURE 2023-01-07 01:58:00 Karen Mendoza [facility] URINALYSIS SCREEN AND 2023-01-07 01:58:00 Karen Mendoza [facility] MICROSCOPY, WITH REFLEX TO CULTURE ABO AND RH CONFIRMATION BY 2023-01-07 00:55:00 Karen Mendoza [facility] PROTOCOL CTA ABD/PEL FOR BLEEDING 2023-01-07 00:48:48 Karen Mendoza [facility] CBC WITH PLATELET AND 2023-01-06 23:02:00 Karen Mendoza [facility] DIFFERENTIAL PROTHROMBIN TIME WITH INR 2023-01-06 23:02:00 Karen Mendoza [facility] PARTIAL THROMBOPLASTIN 2023-01-06 23:02:00 Karen Mendoza [facility] TIME (PTT) COMPREHENSIVE METABOLIC 2023-01-06 23:02:00 Karen Mendoza [facility] PANEL AMYLASE LEVEL 2023-01-06 23:02:00 Karen Mendoza [facility] LIPASE LEVEL 2023-01-06 23:02:00 Karen Mendoza [facility] TYPE AND SCREEN 2023-01-06 23:02:00 Karen alfaro [facility] ESTIMATED GFR 2023-01-06 23:02:00 [facility], [facility] 2022-05-18 17:43:21 David chris Cedeño blood or clot patch REFERRAL- REQUEST/RESPONSE 2021-03-30 05:01:00 Doctor Unassigned , [facility] [place] [facility] Myringotomy 2020-10-10 00:00:[address] [facility] Her jones [U] XRAY KNEE 4 OR MORE 2018-07-24 00:00:00 [facility] V[facility] RIGHT [id number] Emg/Ncv 2018-06-20 00:00:00 [facility] Sleep Lab - Sleep 2018-06-03 00:00:00 [facility] Study Split Night Ulnar nerve decompression 2017-08-12 00:00:00 Sd morial [place] Ulnar nerve decompression 2015-08-12 00:00:00 Sd morial [place] Operation [facility] Hemorrhoidectomy [facility] n Extraction of wisdom tooth Memor ial [place] Appendectomy [facility] History of Cubital tunnel [facility] [...] Cessation Counseling and Screening (12+)] Future Scheduled 2023-06-07 Pneumococcal Vaccine: [facility] Test 20:57:28 Pediatrics (0 to 5 Years) and At-Risk Patients (6 to 64 Years) (1 - PCV) [code = Pneumococcal Vaccine: Pediatrics (0 to 5 Years) and At-Risk Patients (6 to 64 Years) (1 - PCV)] Future Scheduled 2023-06-07 Hepatitis C screening [facility] Test 20:57:28 (procedure) [code = [id number]] Future Scheduled 2023-06-07 COVID-19 VACCINE (3 - [facility] Test 20:57:28 ) [code = COVID-19 VACCINE (3 - 3-24 season)] Future Scheduled 2023-06-07 INFLUENZA VACCINE (#1) [facility] Test 20:57:28 [code = INFLUENZA VACCINE (#1)] Future Scheduled 2023-06-07 Pneumococcal Vaccine: [facility] Test 20:57:28 Pediatrics (0 to 5 Years) and At-Risk Patients (6 to 64 Years) (1 - PCV) [code = Pneumococcal Vaccine: Pediatrics (0 to 5 Years) and At-Risk Patients (6 to 64 Years) (1 - PCV)] Future Scheduled 2023-06-07 Hepatitis C screening [facility] Test 20:57:28 (procedure) [code = [id number]] Future Scheduled 2023-06-07 COVID-19 VACCINE (3 - [facility] Test 20:57:28 season) [code = COVID-19 VACCINE ()] Future Scheduled 2023-06-07 INFLUENZA VACCINE (#1) [facility] Test 20:57:28 [code = INFLUENZA VACCINE (#1)] Future Scheduled 2023-05-25 Pneumococcal Vaccine: [facility] Test 00:12:04 Pediatrics (0 to 5 Years) and At-Risk Patients (6 to 64 Years) (1 - PCV) [code = Pneumococcal Vaccine: Pediatrics (0 to 5 Years) and At-Risk Patients (6 to 64 Years) (1 - PCV)] Future Scheduled 2023-05-25 Hepatitis C screening [facility] Test 00:12:04 (procedure) [code = [id number]] Future Scheduled 2023-05-25 COVID-19 VACCINE (3 - [facility] Test 00:12:04 season) [code = COVID-19 VACCINE ( season)] Future Scheduled 2023-05-25 INFLUENZA VACCINE (#1) [facility] Test 00:12:04 [code = INFLUENZA VACCINE (#1)] Future Scheduled 2023-05-25 RSV VACCINES > 60 YR (1 [facility] Test 00:12:04 - 1-dose 60+ series) [code = RSV VACCINES > 60 YR (1 - 1-dose 60+ series)] Future Scheduled 2023-05-25 Pneumococcal Vaccine: [facility] Test 00:12:04 Pediatrics (0 to 5 Years) and At-Risk Patients (6 to 64 Years) (1 - PCV) [code = Pneumococcal Vaccine: Pediatrics (0 to 5 Years) and At-Risk Patients (6 to 64 Years) (1 - PCV)] Future Scheduled 2023-05-25 Hepatitis C screening [facility] Test 00:12:04 (procedure) [code = [id number]] Future Scheduled 2023-05-25 COVID-19 VACCINE (3 - [facility] Test 00:12:04 season) [code = COVID-19 VACCINE (3 - season)] Future Scheduled 2023-05-25 INFLUENZA VACCINE (#1) [facility] Test 00:12:04 [code = INFLUENZA VACCINE (#1)] Future Scheduled 2023-05-25 RSV VACCINES > 60 YR (1 [facility] Test 00:12:04 - 1-dose 60+ series) [...] Vaccine (#1)] Future Scheduled 2023-04-07 Pneumococcal Vaccine: [facility] Test 01:15:51 Pediatrics (0 to 5 Years) and At-Risk Patients (6 to 64 Years) (1 - PCV) [code = Pneumococcal Vaccine: Pediatrics (0 to 5 Years) and At-Risk Patients (6 to 64 Years) (1 - PCV)] Future Scheduled 2023-04-07 Hepatitis C screening [facility] Test 01:15:51 (procedure) [code = [id number]] Future Scheduled 2023-04-07 COVID-19 VACCINE (3 - [facility] Test 01:15:51 Pfizer series) [code = COVID-19 VACCINE (3 - Pfizer series)] Future Scheduled 2023-04-07 INFLUENZA VACCINE (#1) [facility] Test 01:15:51 [code = INFLUENZA VACCINE (#1)] Future Scheduled 2023-04-07 Pneumococcal Vaccine: [facility] Test 01:15:51 Pediatrics (0 to 5 Years) and At-Risk Patients (6 to 64 Years) (1 - PCV) [code = Pneumococcal Vaccine: Pediatrics (0 to 5 Years) and At-Risk Patients (6 to 64 Years) (1 - PCV)] Future Scheduled 2023-04-07 Hepatitis C screening [facility] Test 01:15:51 (procedure) [code = [id number]] Future Scheduled 2023-04-07 COVID-19 VACCINE (3 - [facility] Test 01:15:51 Pfizer series) [code = COVID-19 VACCINE (3 - Pfizer series)] Future Scheduled 2023-04-07 INFLUENZA VACCINE (#1) [facility] Test 01:15:51 [code = INFLUENZA VACCINE (#1)] Future Scheduled 2023-04-07 Pneumococcal Vaccine: [facility] Test 01:15:51 Pediatrics (0 to 5 Years) and At-Risk Patients (6 to 64 Years) (1 - PCV) [code = Pneumococcal Vaccine: Pediatrics (0 to 5 Years) and At-Risk Patients (6 to 64 Years) (1 - PCV)] Future Scheduled 2023-04-07 Hepatitis C screening [facility] Test 01:15:51 (procedure) [code = [id number]] Future Scheduled 2023-04-07 COVID-19 VACCINE (3 - [facility] Test 01:15:51 Pfizer series) [code = COVID-19 VACCINE (3 - Pfizer series)] Future Scheduled 2023-04-07 INFLUENZA VACCINE (#1) [facility] Test 01:15:51 [code = INFLUENZA VACCINE (#1)] Future Scheduled 2023-03-16 Pneumococcal Vaccine: [facility] Test 12:35:05 Pediatrics (0 to 5 Years) and At-Risk Patients (6 to 64 Years) (1 - PCV) [code = Pneumococcal Vaccine: Pediatrics (0 to 5 Years) and At-Risk Patients (6 to 64 Years) (1 - PCV)] Future Scheduled 2023-03-16 Hepatitis C screening [facility] Test 12:35:05 (procedure) [code = [id number]] Future Scheduled 2023-03-16 COVID-19 VACCINE (3 - [facility] Test 12:35:05 Pfizer series) [code = COVID-19 VACCINE (3 - Pfizer series)] Future Scheduled 2023-03-16 INFLUENZA VACCINE [code [facility] Test 12:35:05 = INFLUENZA VACCINE] Future Scheduled 2023-03-08 Pneumococcal Vaccine: [facility] Test 14:34:41 Pediatrics (0 to 5 Years) and At-Risk Patients (6 to 64 Years) (1 - PCV) [code = Pneumococcal Vaccine: Pediatrics (0 to 5 Years) and At-Risk Patients (6 to 64 Years) (1 - PCV)] Future Scheduled 2023-03-08 Hepatitis C screening [facility] Test 14:34:41 (procedure) [code = [id number]] Future Scheduled 2023-03-08 COVID-19 VACCINE (3 - [facility] Test 14:34:41 Pfizer series) [code = COVID-19 VACCINE (3 - Pfizer series)] Future Scheduled 2023-03-08 INFLUENZA VACCINE [code [facility] Test 14:34:41 = INFLUENZA VACCINE] Future Scheduled 2023-03-04 Pneumococcal Vaccine: [facility] Test 12:22:41 Pediatrics (0 to 5 Years) and At-Risk Patients (6 to 64 Years) (1 - PCV) [code = Pneumococcal Vaccine: Pediatrics (0 to 5 Years) and At-Risk Patients (6 to 64 Years) (1 - PCV)] Future Scheduled 2023-03-04 Hepatitis C screening [facility] Test 12:22:41 (procedure) [code = [id number]] Future Scheduled 2023-03-04 COVID-19 VACCINE (3 - [facility] Test 12:22:41 Pfizer series) [code = COVID-19 VACCINE (3 - Pfizer series)] Future Scheduled 2023-03-04 INFLUENZA VACCINE [code [facility] Test 12:22:41 = INFLUENZA VACCINE] Future Scheduled 2023-02-11 Pneumococcal Vaccine: [facility] Test 11:22:44 Pediatrics (0 to 5 Years) and At-Risk Patients (6 to 64 Years) (1 - PCV) [code = Pneumococcal Vaccine: Pediatrics (0 to 5 Years) and At-Risk Patients (6 to 64 Years) (1 - PCV)] Future Scheduled 2023-02-11 Hepatitis C screening [facility] Test 11:22:44 (procedure) [code = [id number]] Future Scheduled 2023-02-11 COVID-19 VACCINE (3 - [facility] Test 11:22:44 Pfizer series) [code = COVID-19 VACCINE (3 - Pfizer series)] Future Scheduled 2023-02-11 INFLUENZA VACCINE [code [facility] Test 11:22:44 = INFLUENZA VACCINE] Future Scheduled 2023-01-26 Pneumococcal Vaccine: [facility] Test 16:56:13 Pediatrics (0 to 5 Years) and At-Risk Patients (6 to 64 Years) (1 - PCV) [code = Pneumococcal Vaccine: Pediatrics (0 to 5 Years) and At-Risk Patients (6 to 64 Years) (1 - PCV)] Future Scheduled 2023-01-26 [facility] Test 16:56:13 (procedure) [code = [id number]] Future Scheduled 2023-01-26 COVID-19 VACCINE (3 - [facility] Test 16:56:13 Pfizer series) [code = COVID-19 VACCINE (3 - Pfizer series)] Future Scheduled 2023-01-26 INFLUENZA VACCINE [code [facility] Test 16:56:13 = INFLUENZA VACCINE] Future Scheduled 2022-12-12 [facility] Test 13:32:14 [code = COVID-19 VACCINE (#1)] Future Scheduled 2022-12-12 INFLUENZA VACCINE [code [facility] Test 13:32:14 = INFLUENZA VACCINE] Future Scheduled 2022-12-12 COVID-19 VACCINE (#[facility]) [facility] 13:32:14 [code = COVID-19 VACCINE (#1)] Future Scheduled 2022-12-12 INFLUENZA VACCINE [code [facility] Test 13:32:14 = INFLUENZA VACCINE] Future Scheduled 2022-09-18 COVID-19 [facility]ACCINE (#[facility]) [facility] Test 11:55:25 [code = COVID-19 VACCINE (#1)] Future Scheduled 2022-09-18 INFLUENZA VACCINE [code [facility] Test 11:55:25 = INFLUENZA VACCINE] Future Scheduled 2022-09-18 COVID-19 VACCINE (#1) [facility] Test 11:55:25 [code = COVID-19 VACCINE (#1)] Future Scheduled 2022-09-18 INFLUENZA VACCINE [code [facility] Test 11:55:25 = INFLUENZA VACCINE] Future Scheduled 2022-09-07 COVID-19 [facility]ACCINE (#[facility]) [facility] Test 19:13:43 [code = COVID-19 VACCINE (#1)] Future Scheduled 2022-09-07 INFLUENZA VACCINE [code [facility] Test 19:13:43 = INFLUENZA VACCINE] Future [...] (12+)] Future Scheduled 2022-07-28 COVID-19 VACCINE (#1) [facility] Test 16:56:35 [code = COVID-19 VACCINE (#1)] Future Scheduled 2022-07-28 INFLUENZA VACCINE [code [facility] Test 16:56:35 = INFLUENZA VACCINE] Future Scheduled 2022-07-28 [facility] 16:56:35 [code = COVID-19 VACCINE (#1)] Future Scheduled 2022-07-28 INFLUENZA VACCINE [code [facility] Test 16:56:35 = INFLUENZA VACCINE] Future Scheduled 2022-04-13 HEPATITIS B VACCINES (1 [facility] Test 21:38:54 of 3 - 3-dose series) [code = HEPATITIS B VACCINES (1 of 3 - 3-dose series)] Future Scheduled 2022-04-13 COVID-19 VACCINE (#[facility]) [facility] Test 21:38:54 [code = COVID-19 VACCINE (#1)] Future Scheduled 2022-04-13 INFLUENZA VACCINE [code [facility] Test 21:38:54 = INFLUENZA VACCINE] Future Scheduled 2022-04-13 HEPATITIS B VACCINES (1 [facility] Test 21:38:54 of 3 - 3-dose series) [code = HEPATITIS B VACCINES (1 of 3 - 3-dose series)] Future Scheduled 2022-04-13 [facility] 21:38:54 [code = COVID-19 VACCINE (#1)] Future Scheduled 2022-04-13 INFLUENZA VACCINE [code [facility] Test 21:38:54 = INFLUENZA VACCINE] Future Scheduled 2022-04-13 HEPATITIS B VACCINES (1 [facility] Test 21:38:54 of 3 - 3-dose series) [code = HEPATITIS B VACCINES (1 of 3 - 3-dose series)] Future Scheduled 2022-04-13 COVID[facility]19 [facility] 21:38:54 [code = COVID-19 VACCINE (#1)] Future Scheduled 2022-04-13 INFLUENZA VACCINE [code [facility] Test 21:38:54 = INFLUENZA VACCINE] Future Scheduled 2022-04-13 HEPATITIS B VACCINES (1 [facility] Test 21:38:54 of 3 - 3-dose series) [code = HEPATITIS B VACCINES (1 of 3 - 3-dose series)] Future Scheduled 2022-04-13 COVID-19 VACCINE (#1) [facility] Test 21:38:54 [code = COVID-19 VACCINE (#1)] Future Scheduled 2022-04-13 INFLUENZA VACCINE [code [facility] Test 21:38:54 = INFLUENZA VACCINE] Future Scheduled 2022-04-13 HEPATITIS B VACCINES (1 [facility] Test 21:38:54 of 3 - 3-dose series) [code = HEPATITIS B VACCINES (1 of 3 - 3-dose series)] Future Scheduled 2022-04-13 COVID-19 VACCINE (#1) [facility] Test 21:38:54 [code = COVID-19 VACCINE (#1)] Future Scheduled 2022-04-13 INFLUENZA VACCINE [code [facility] Test 21:38:54 = INFLUENZA VACCINE] Future Scheduled 2022-04-13 HEPATITIS B VACCINES (1 [facility] Test 21:38:54 of 3 - 3-dose series) [code = HEPATITIS B VACCINES (1 of 3 - 3-dose series)] Future Scheduled 2022-04-13 COVID-19 VACCINE (#1) [facility] Test 21:38:54 [code = COVID-19 VACCINE (#1)] Future Scheduled 2022-04-13 INFLUENZA VACCINE [code [facility] Test 21:38:54 = INFLUENZA VACCINE] Future Scheduled 2021-07-01 COVID-19 VACCINE (3 - [facility] 00[facility]00 Pfizer series) [code = [facility] COVID-19 VACCINE (3 - Pfizer series)] Future Scheduled 2021-07-01 COVID-19 VACCINE [...] [facility] Test 00:00:00 [code = [id number]] Medical Ce [facility]ter Future Scheduled 2015 Lipid panel (procedure) [facility] Test 00:00:00 [code = 83633065] Medical Ce [facility]ter Future Scheduled 2015 Lipid panel (procedure) [facility] Test 00:00:00 [code = 80280263] Medical Ce [facility]ter Future Scheduled 2015 Lipid panel (procedure) [facility] Test 00:00:00 [code = 92654555] Medical Ce nter Future Scheduled 2015 Lipid panel (procedure) [facility] Test 00:00:00 [code = 51028197] Medical Ce nter Future Scheduled 2015 Lipid panel (procedure) [facility] Test 00:00:00 [code = 37655075] Medical Ce nter Future Scheduled 2015 Lipid panel (procedure) [facility] Test 00:00:00 [code = 99060218] Medical Ce nter Future Scheduled 2015 Lipid panel (procedure) [facility] Test 00:00:00 [code = 91820726] Medical Ce nter Future Scheduled 2015 Lipid panel (procedure) [facility] 00:00:00 [code = 33717139] Medical Ce nter Future Scheduled 2015 Lipid panel (procedure) [facility] 00:00:00 [code = 28169959] Medical Ce nter Future Scheduled 2015 Lipid panel (procedure) [facility] 00:00:00 [code = 80873231] Medical Ce nter Future Scheduled 2015 Lipid panel (procedure) [facility] 00:00:00 [code = 58605495] Medical Ce nter Future Scheduled 2015 Lipid panel (procedure) [facility] 00:00:00 [code = 52322438] Medical Ce nter Future Scheduled 2015 Lipid panel (procedure) [facility] Test 00:00:00 [code = 47482613] Medical Ce nter Future Scheduled 1999 DTAP/TDAP/TD [...] [facility]procedure[facility] [code = 130111621] Future Scheduled [address] [facility]00 [facility] screening [facility] (procedure) [code = 497999816] Future Scheduled [address] Human immunodeficiency [facility] 00:[facility]00 [facility] screening [facility] (procedure) [code = 810478064] Future Scheduled [address] Human immunodeficiency [facility] 00:00:00 [facility] screening [facility] (procedure) [code = 469084727] Future Scheduled 1995 [facility] immunodeficiency [facility] [code = 086430221] Future Scheduled [address] [facility]procedure[facility] [code = 428076387] Future Scheduled [address] [facility]procedure[facility] [code = 373891589] Future Scheduled [address] [facility]procedure[facility] [code = 063938448] Future Scheduled [address] [facility]procedure) [code = 840683233] Future Scheduled [address] [facility]procedure) [code = 877973506] Future Scheduled COVID-19 VACCINE (1) [facility] Test [code = COVID-19 VACCINE (1)] Future Scheduled Hepatitis C screening [facility] Test (procedure) [code = 984513110] Future Scheduled INFLUENZA VACCINE [code [facility] Test = INFLUENZA VACCINE] Procedure 2023-08-12 [facility] with [facility] 04:17:00 mastoidectomy (including canalplasty, middle ear surgery, tympanic membrane repair); radical or complete, without ossicular chain reconstruction Encounters Start End Encounter Admission Attending Care Care Encounter Source Date/Time Date/Time Type Type Clinicians Facility Department ID 2023-03-27 Outpatient VazquezZOLTAN frausto [facility] [id number] Common 08:24:00 Formerly [facility] [id number] [facility] 2023-02-19 Outpatient [facility] [id number] [place] 08:16:07 [id number] [facility] 2023-02-18 Outpatient [facility] [id number] [place] 07:32:15 [id number] [facility] 2023-02-04 Outpatient [facility] [id number] [place] 16:00:55 [id number] [facility] 2023-01-04 Outpatient [facility] [id number] [place] 10:29:46 [id number] [facility] 2022-12-21 Outpatient VazquezZOLTAN frausto [facility] [id number] Common 09:37:00 Formerly [facility] [id number] [facility] 2022-09-27 Outpatient [facility] [id number] [place] 15:49:39 [id number] [facility] 2022-09-25 Outpatient VazquezZOLTAN frausto [facility] [id number] Common 10:35:01 [facility]ly [facility] [id number] [facility] 2022-09-20 Outpatient [facility] [id number] [place] 09:01:19 [id number] [facility] 2022-09-18 Outpatient [facility] [id number] [place] 13:05:14 [id number] [facility] 2022-09-04 Outpatient [facility] [id number] [place] 09:48:26 [id number] [facility] 2022-09-03 Outpatient [facility] [id number] [place] 10:22:47 [id number] [facility] 2022-08-15 Outpatient [facility] [id number] [place] 08:54:00 [id number] [facility] 2022-07-30 Outpatient [facility] [id number] [place] 09:03:26 [id number] [facility] 2022-07-27 Outpatient [facility] [id number] [place] 09:39:00 [id number] [facility] 2022-06-22 Outpatient Vazquez, STLMLC STLMLC [id number] Common 11:03:01 [facility] 2022-06-20 Outpatient [facility] [id number] [place] 15:53:00 [id number] [facility] 2022-06-20 Outpatient Vazquez, STLMLC STLMLC [id number] Common 09:33:01 [facility]ly [facility] 2022-06-19 Outpatient [facility] [id number] [place] 15:00:31 [id number] [facility] 2022-06-12 Outpatient [facility] [id number] [place] 09:35:34 [id number] [facility] 2022-05-25 Outpatient [facility] [id number] [place] 13:39:31 [id number] [facility] 2021-10-25 Outpatient MIGUEL ANGEL, [facility] ANAY [address] [facility] 11:23:00 NEHAWKA 2021-09-28 Outpatient DAY, NOAH [facility] [id number] [place] 16:10:44 [facility] 2021-09-06 Outpatient Vazquez, STLMLC STLMLC [id number] Common 12:12:10 [facility] [address]97 [facility] 2021-09-06 Outpatient Vazquez, STLMLC STLMLC [id number] Common 12:10:54 [facility]ly [facility] [address] [facility] 2021-09-06 Outpatient Vazquez, STLMLC STLMLC [id number] Common 12:09:52 John [id number] [facility] 2021-09-06 Outpatient Vazquez, STLMLC STLMLC [id number] Common 11:54:05 [facility]ly [facility] [address]98 [facility] 2021-09-06 Outpatient Vazquez, STLMLC STLMLC [id number] Common 11:06:57 [facility]ly [facility] [address]56 [facility] 2021-09-06 Outpatient Vazquez, STLMLC [facility] [id number] Common 11:06:47 [facility] [id number] [facility] 2021-04-18 Outpatient STACY, [facility] [id number] [place] 14:45:53 [facility] 2023-10-22 2023-10-22 Outpatient YUHARMEET, [facility] [id number] [place] 15:00:00 15:00:00 [facility] 2023-10-22 2023-10-22 Outpatient SLEDGEthan, [facility] [id number] [place] 14:30:00 14:30:00 DAVID [facility] 2023-08-13 2023-08-13 Outpatient JOHAN HONEYCUTT [facility] [id number] [place] 16:00:00 16:00:00 [facility] 2023-05-29 2023-05-29 Outpatient DAY, NOAH [facility] [id number] [place] 15:45:00 15:45:00 [facility] 2023-04-23 2023-04-23 Office Alyse UTP 6400 1.2.840.114 [id number] [place] 15:15:00 15:48:[address] 350.1.13.58 Health 9.2.7.2.686 [id number] 5 2023-04-23 2023-04-23 Office Johan Honeycutt UTP 6410 1.2.840.114 1 [id number] [place] 14:00:00 15:16:[address] 350.1.13.58 Health 9.2.7.2.686 [id number] 8 2023-04-08 2023-04-08 Outpatient SFA SFA [id number] [place] 14:50:30 14:50:30 0828 F Serge 2023-03-26 2023-03-26 Emergency X TAVON, [facility] ERT [id number] Univers 16:24:00 20:05:00 MAGNOLIA busch [facility] 2023-03-26 2023-03-26 Emergency Tavon, [facility] 1.2.840.114 [id number] [place] [facility] 16:24:00 20:05:00 Magnolia YANG 350.1.13.10 i ty of ALEPPO 4.2.7.2.686 [facility] [id number] [facility] [address] 2023-03-13 2023-03-13 Office EUNICE Cullen 6400 1.2.840.114 [id number] [place] 13:00:00 13:52:[address] 350.1.13.58 [facility] 9.2.7.2.686 [id number] 5 2023-03-07 2023-03-07 Outpatient ALYSE, [facility] [id number] [place] 14:15:00 14:15:00 [facility] 2023-02-14 2023-02-19 Inpatient [facility] [id number] [facility] 14:24:00 22:51:[address] 2023-02-14 2023-02-19 Outpatient Lisa, [facility] [id number] 09:24:00 17:51:00 [facility] 08 2023-02-14 2023-02-19 Inpatient YUREINIEREL, [facility] 7508 [facility] 09:24:00 17:51:00 [facility] 2023-02-14 2023-02-19 Inpatient YUREINIEREL, [facility] [id number] [facility] 09:24:00 17:51:00 [facility] 08 2023-02-14 2023-02-14 Outpatient ALYSE, [facility] [id number] [place] 12:00:00 12:00:00 [facility] 2023-01-10 2023-01-10 Outpatient CORCORAN [facility] [id number] [place] 13:00:00 13:00:00 Karthik WILHELM 2023-01-06 2023-01-07 Emergency Karen Mendoza 1.2.840.1 [id number] Methodi 17:24:00 18:25:00 Julian Sexton 16412.1.1 [address] 3.430.2.7 Hospita .3.826269 l .8 2023-01-06 2023-01-07 Emergency Karen Mendoza. 1.2.840.1 [id number] Methodi 17:24:00 18:25:00 Julian Sexton [address]213.1.[address] [facility] 3.430.2.7 Hospita .3.971342 l .8 2023-01-06 2023-01-06 Travel 1.2.840.1 1.2.751.493 [id number] Methodi 00:00:00 00:00:[address] 3.430.2.7 0.2.7.3.698 Ho spita .3.158986 084.8 l .8 2023-01-06 2023-01-06 Travel 1.2.840.1 1.2.941.636 [id number] Methodi 00:00:00 00:00:[address] 3.430.2.7 0.2.7.3.698 Ho spita .3.920597 084.8 l .8 2022-12-25 2022-12-25 (TEL) STLMLC STLMLC [id number] Co mmon 00:00:00 00:00:00 [facility] 2022-12-25 2022-12-25 (TEL) STLMLC STLMLC [id number] Co mmon 00:00:00 00:00:00 [facility] 2022-11-14 2022-11-[address] [facility] [id number] 14:30:00 15:33:44 Visit [facility] 2022-11-14 2022-11-[address] [facility] [id number] 14:30:00 15:33:44 Visit [facility] 2022-11-14 2022-11-14 (TEL) STLMLC STLC [id number] Co mmon 00:00:00 00:00:00 [facility] 2022-10-24 2022-10-24 (TEL) STLMLC STLMLC [id number] Co mmon 00:00:00 00:00:00 [facility] 2022-10-08 2022-10-08 (TEL) STLMLC STLMLC [id number] Co mmon 00:00:00 00:00:00 [facility] 2022-10-08 2022-10-08 (INJ) STLMLC STLMLC [id number] Co mmon 00:00:00 00:00:00 Injection Spir it [facility] 2022-09-28 2022-09-28 Office EUNICE Cullen 6400 1.2.840.114 [id number] [place] 15:00:00 16:43:35 Visit [facility] CHRISTINE 350.1.13.58 [facility] 9.2.7.2.686 [id number] 5 2022-09-27 2022-09-27 (TEL) STLMLC STLMLC [id number] Co mmon 00:00:00 00:00:00 [facility] 2022-09-27 2022-09-27 PREV VISIT STLMLC STLMLC [id number] Common 00:00:00 00:00:00 EST AGE [facility] 40-64 [facility] 2022-09-26 2022-09-26 Outpatient LISA [facility] [id number] [place] 13:15:00 13:15:00 [facility] 2022-09-20 2022-09-21 Outpt Diag MHIE [facility] [id number] Memoria 19:41:00 05:59:00 Services Outpatient 03 l Imaging [facility] 2022-09-20 2022-09-21 Outpt Diag IE [facility] [id number] Memoria 19:41:00 05:59:00 Services Outpatient 03 l Imaging [facility] 2022-09-20 2022-09-20 Outpatient harmeet [facility] [id number] 13:41:00 23:59:00 [place] [id number] 2022-09-20 2022-09-20 Office ALYSE UTP 6400 1.2.840.114 [id number] [place] 08:45:00 08:45:00 Visit MANASA JOYCE 350.1.13.58 Health 9.2.7.2.686 [id number] 5 2022-08-16 2022-08-16 Outpatient TUCKER, [facility] [id number] [place] 14:30:00 14:30:00 [facility] 2022-08-01 2022-08-01 Outpatient TUCKER, [facility] [id number] [place] 11:00:00 11:00:00 [facility] 2022-07-27 2022-07-27 Office EUNICE Cullen 6400 1.2.840.114 [id number] [place] 08:30:00 09:48:28 Visit Manasa JOYCE 350.1.13.58 Health 9.2.7.2.686 [id number] 5 2022-07-25 2022-07-25 (TEL) STLMLC STLMLC [id number] Co mmon 00:00:00 00:00:00 [facility] 2022-06-22 2022-06-22 (TEL) STLMLC STLMLC [id number] Co mmon 00:00:00 00:00:00 [facility] 2022-06-22 2022-06-22 OFFICE STLMLC STLMLC [id number] Co mmon 00:00:00 00:00:00 VISIT [facility] LEVEL 4 [facility] 2022-06-20 2022-06-20 Outpatient DAY, NOAH [facility] [id number] [place] 14:00:00 14:00:00 Health 2022-06-13 2022-06-13 Outpatient DAY, NOAH [facility] [id number] [place] 13:15:00 13:15:00 Health 2022-06-06 2022-06-06 (TEL) STLMLC STLMLC [id number] Co mmon 00:00:00 00:00:00 [facility] 2022-06-06 2022-06-06 (TEL) STLMLC STLMLC [id number] Co mmon 00:00:00 00:00:00 [facility] 2022-05-16 2022-05-19 Observatio nullFlavo [facility] 4547 [id number] Memoria 21:39:42 16:40:00 n r [address] 2022-05-16 2022-05-19 Observatio nullFlavo [facility] 4547 [id number] Memoria 21:39:42 16:40:[address] n [address]ace [address] 2022-05-17 2022-05-19 Outpatient E DAY, NOAH [facility] 750 7 [facility] 10:13:00 11:40:00 2022-05-16 2022-05-19 Outpatient Day, Noah [facility] [id number] 16:39:42 11:40:00 L 2022-05-16 2022-05-19 Outpatient Day, Noah [facility] [id number] 16:39:42 11:40:00 L 2022-05-16 2022-05-16 Office DAY, NOAH [facility] 6400 1.2.840.114 1 [id number] [place] 15:45:00 15:45:[address] 350.1.13.58 [facility] 9.2.7.2.686 [id number] 0 2022-05-12 2022-05-13 Emergency nullFlavo [facility] 57336 [id number] Memoria 09:35:00 02:21:[address] 2022-05-12 2022-05-13 [facility] [id number] Memoria 09:35:00 02:21:[address] 2022-05-12 2022-05-12 Outpatient Treviño, [facility] [id number] 04:35:00 21:21:00 Sonia Vazquez 2022-05-12 2022-05-12 Emergency E TREVIÑO, [facility] 2274 [facility] 03:16:00 21:21:00 SONIA 2022-03-21 2022-03-21 Outpatient DAY, NOAH [facility] [id number] [place] 15:00:00 15:00:00 Health 2022-03-14 2022-03-14 Telephone Day, Noah UTP 6400 1.2.840.114 [id number] [place] 00:00:00 00:00:[address] 350.1.13.58 Health 9.2.7.2.686 [id number] 0 2022-03-14 2022-03-14 Telephone Patki, UTP 6400 1.2.840.114 [id number] [place] 00:00:00 00:00:[address] 350.1.13.58 Health 9.2.7.2.686 [id number] 3 2022-03-14 2022-03-14 Telephone Day, Noah UTP 6400 1.2.840.114 [id number] [place] 00:00:00 00:00:[address] 350.1.13.58 Health 9.2.7.2.686 [id number] 0 2022-03-13 2022-03-13 Telephone Day, Noah UTP 6400 1.2.840.114 [id number] [place] 00:00:00 00:00:[address] 350.1.13.58 Health 9.2.7.2.686 [id number] 0 2022-01-01 2022-01-01 Telephone Day, Noah UTP 6400 1.2.840.114 [id number] [place] 00:00:00 00:00:[address] 350.1.13.58 Health 9.2.7.2.686 [id number] 0 2021-12-28 2021-12-28 Telephone Day, Noah UTP 6400 1.2.840.114 [id number] [place] 00:00:00 00:00:[address] 350.1.13.58 Health 9.2.7.2.686 [id number] 0 2021-12-06 2021-12-06 Telephone Day, Noah UTP 6400 1.2.840.114 [id number] [place] 00:00:00 00:00:[address] 350.1.13.58 Health 9.2.7.2.686 [id number] 0 2021-11-27 2021-11-27 Telephone Day, Noah UTP 6400 1.2.840.114 [id number] [place] 00:00:00 00:00:[address] 350.1.13.58 Health 9.2.7.2.686 [id number] 0 2021-11-01 2021-11-01 Telephone Day, Noah UTP 6400 1.2.840.114 [id number] [place] 00:00:00 00:00:[address] 350.1.13.58 Health 9.2.7.2.686 [id number] 0 2021-10-30 2021-10-30 Telephone Rae Naranjo UTP 1.2.840 .114 [id number] [place] 00:00:00 00:00:00 Rae Naranjo 350.1.13.58 Health MEDICAL 9.2.7.2.686 [facility] [id number] 1 2021-10-27 2021-10-27 Telephone Day, Noah UTP 6410 1.2.840.114 [id number] [place] 00:00:00 00:00:[address] 350.1.13.58 Health 9.2.7.2.686 [id number] 8 2021-10-25 2021-10-26 Outpt Diag nullFlavo [facility] [id number] Memoria 18:11:00 04:59:00 Services r Outpatient 01 l [facility] 2021-10-25 2021-10-26 Outpt Diag nullFlavo [facility] [id number] Memoria 18:11:00 04:59:00 Services r Outpatient 01 l [facility] 2021-10-25 2021-10-25 Outpatient [facility]HA [facility] [id number] 13:11:00 23:59:00 Geronimo D 2021-10-24 2021-10-24 Telephone GonzaloLayne UTP 6400 1.2.840.1 14 [id number] [place] 00:00:00 00:00:[address]ánchezN ST 350.1.13.58 Health 9.2.7.2.686 [id number] 3 2021-10-24 2021-10-24 Telephone Day, Noah UTP 6400 1.2.840.114 [id number] [place] 00:00:00 00:00:[address] 350.1.13.58 Health 9.2.7.2.686 [id number] 0 2021-10-20 2021-10-20 Office Miguel Angel, EUNICE 1.2.840.114 [id number] [place] 13:30:00 14:18:52 Visit Geronimo MENCHACA 350.1.13.58 [facility] MEDICAL 9.2.7.2.686 [facility] [id number] 1 2021-10-18 2021-10-19 Outpt Diag nullFlavo [facility] 73100 83161 [facility] 17:43:00 05:59:00 Services r Outpatient 00 l Imaging [facility] 2021-10-18 2021-10-19 Outpt Diag nullFlavo [facility] 92559 38245 [facility] 17:43:00 05:59:00 Services r Outpatient 00 l Imaging [facility] 2021-10-18 2021-10-18 Outpatient Day, Noah [facility] [id number] 11:43:00 23:59:00 L 00 2021-10-18 2021-10-18 Office Day, Noah UTP 6400 1.2.840.114 1 [id number] UT 10:00:00 10:15:[address] 350.1.13.58 Health 9.2.7.2.686 [id number] 0 2021-10-18 2021-10-18 Telephone Day, Noah UTP 6400 1.2.840.114 [id number] [place] 00:00:00 00:00:[address] 350.1.13.58 Health 9.2.7.2.686 [id number] 0 2021-10-18 2021-10-18 Telephone Day, Noah UTP 6400 1.2.840.114 [id number] [place] 00:00:00 00:00:[address] 350.1.13.58 Health 9.2.7.2.686 [id number] 0 2021-10-17 2021-10-17 Telephone Day, Noah UTP 6400 1.2.840.114 [id number] [place] 00:00:00 00:00:[address] 350.1.13.58 Health 9.2.7.2.686 [id number] 0 2021-10-13 2021-10-13 Telephone Day, Noah UTP 6400 1.2.840.114 [id number] [place] 00:00:00 00:00:[address] 350.1.13.58 Health 9.2.7.2.686 [id number] 0 2021-10-08 2021-10-10 Inpatient nullFlavo [facility] 45901 [id number] Memoria 23:43:00 15:48:[address] 2021-10-08 2021-10-10 [facility] 8[address] 61300 Memoria 23:43:00 15:48:[address] 2021-10-08 2021-10-10 Inpatient E DAY, NOAH [facility] 2057 [facility] 19:58:00 09:48:00 2021-10-08 2021-10-10 Outpatient Day, Noah [facility] [id number] 17:43:00 09:48:00 [facility] 2021-10-08 2021-10-08 Outpatient Day, Noah [facility] [id number] 17:43:00 17:43:00 [facility] 2021-10-03 2021-10-05 [facility] [id number] Memoria 11:15:00 16:21:[address] 2021-10-03 2021-10-05 [facility] 40371 [id number] Memoria 11:15:00 16:21:[address] 2021-10-03 2021-10-05 Outpatient Day, Noah [facility] [id number] 05:15:00 10:21:00 [facility] 2021-10-03 2021-10-05 Outpatient Day, Noah [facility] [id number] 05:15:00 10:21:00 L 05 2021-10-03 2021-10-05 Inpatient DAY, NOAH [facility] 7505 [facility] 05:15:00 10:21:00 2021-10-04 2021-10-04 Telephone Day, Noah UTP 6400 1.2.840.114 [id number] [place] 00:00:00 00:00:[address] 350.1.13.58 Health 9.2.7.2.686 [id number] 0 2021-09-28 2021-09-28 Telephone Day, Noah UTP 6400 1.2.840.114 [id number] [place] 00:00:00 00:00:[address] 350.1.13.58 Health 9.2.7.2.686 [id number] 0 2021-09-28 2021-09-28 Telephone Dorothea Delgadillo UTP 6400 1.2.84 0.114 [id number] [place] 00:00:00 00:00:[address] 350.1.13.58 Health 9.2.7.2.686 [id number] 3 2021-09-22 2021-09-22 Telephone Day, Noah UTP 6400 1.2.840.114 [id number] [place] 00:00:00 00:00:[address] 350.1.13.58 Health 9.2.7.2.686 [id number] 0 2021-09-20 2021-09-20 Telephone Day, Noah UTP 6400 1.2.840.114 [id number] [place] 00:00:00 00:00:[address] 350.1.13.58 Health 9.2.7.2.686 [id number] 7 2021-09-18 2021-09-18 Telephone Amelia Cameron UTP 6400 1.2.840.11 4 [id number] [place] 00:00:00 00:00:[address] 350.1.13.58 Health 9.2.7.2.686 [id number] 5 2021-09-07 2021-09-07 Office Patkenji, UTP 6400 1.2.840.114 [id number] [place] 13:30:00 14:35:02 Visit Junior JOYCE 350.1.13.58 Health 9.2.7.2.686 [id number] 3 2021-09-07 2021-09-07 Telephone Patki, UTP 6400 1.2.840.114 [id number] [place] 00:00:00 00:00:[address] 350.1.13.58 Health 9.2.7.2.686 [id number] 3 2021-09-05 2021-09-05 Telephone Patkenji, UTP 6400 1.2.840.114 [id number] [place] 00:00:00 00:00:[address] 350.1.13.58 Health 9.2.7.2.686 [id number] 3 2021-09-03 2021-09-03 Telephone Patki, UTP 6400 1.2.840.114 [id number] [place] 00:00:00 00:00:[address] 350.1.13.58 Health 9.2.7.2.686 [id number] 3 2021-08-02 2021-08-02 Telephone Patki, UTP 6400 1.2.840.114 133 [id number] [place] 00:00:00 00:00:[address] 350.1.13.58 Health 9.2.7.2.686 [id number] 3 2021-05-18 2021-05-18 Orders Brii Howard UTP 6400 1.2.840.114 [id number] [place] 00:00:00 00:00:[address] 350.1.13.58 Health 9.2.7.2.686 [id number] 3 2021-05-18 2021-05-18 Orders Stacy, UTP 6400 1.2.840.114 [id number] UT 00:00:00 00:00:[address] 350.1.13.58 Health 9.2.7.2.686 [id number] 3 2021-05-15 2021-05-15 Telephone Patki, UTP 6400 1.2.840.114 127 [id number] [place] 00:00:00 00:00:[address] 350.1.13.58 Health 9.2.7.2.686 [id number] 3 2021-05-11 2021-05-11 Emergency [facility] [id number] Memoria 00:42:19 14:08:[address] 2021-05-11 2021-05-11 Emergency [facility] [id number] Memoria 00:42:19 14:08:[address] 2021-05-10 2021-05-11 [id number] 19:42:19 09:08:00 Kasibrittany Galeah 2021-05-11 2021-05-11 (TEL) STLMLC STLC [id number] Co mmon 00:00:00 00:00:00 [facility] 2021-05-09 2021-05-09 Telephone Patki, UTP 6400 1.2.840.114 127 [id number] UT 00:00:00 00:00:[address] 350.1.13.58 Health 9.2.7.2.686 [id number] 3 2021-05-08 2021-05-08 Telephone Patki, UTP 6400 1.2.840.114 127 [id number] UT 00:00:00 00:00:[address] 350.1.13.58 Health 9.2.7.2.686 [id number] 3 2021-05-08 2021-05-08 Telephone Patki, UTP 6400 1.2.840.114 127 [id number] [place] 00:00:00 00:00:[address] 350.1.13.58 Health 9.2.7.2.686 [id number] 3 2021-05-08 2021-05-08 Telephone Patkenji, EUNICE 6400 1.2.840.114 127 [id number] UT 00:00:00 00:00:00 Junior RUVALCABA.1.13.58 Health 9.2.7.2.686 [id number] 3 2021-05-03 2021-05-03 Office Stacy, EUNICE 6400 1.2.840.114 [id number] UT 13:38:06 14:42:46 Visit Junior RUVALCABA.1.13.58 Health 9.2.7.2.686 [id number] 3 2021-05-03 2021-05-03 Office Stacy, UTP 6400 1.2.840.114 [id number] UT 13:38:06 14:42:46 Visit Junior RUVALCABA.1.13.58 Health 9.2.7.2.686 [id number] 3 2021-04-18 2021-04-18 Office Stacy, UTP 6400 1.2.840.114 [id number] UT 13:09:45 14:44:18 Visit Junior RUVALCABA.1.13.58 Health 9.2.7.2.686 [id number] 3 2021-04-18 2021-04-18 Office Stacy, UTP 6400 1.2.840.114 [id number] UT 13:09:45 14:44:18 Visit Junior RUVALCABA.1.13.58 Health 9.2.7.2.686 [id number] 3 2021-04-06 2021-04-06 OFFICE STLC STLMLC [id number] Co mmon 00:00:00 00:00:00 VISIT EST Spir it PT LEVEL 3 - [facility] 2021-04-06 2021-04-06 (TEL) STLMLC STLMLC [id number] Co mmon 00:00:00 00:00:00 [facility] 2021-03-31 2021-03-31 (TEL) STLMLC STLMLC [id number] Co mmon 00:00:00 00:00:00 [facility] 2021-03-30 2021-03-30 Orders Doctor AICHA 1.2.840.114 [id number] 00:00:00 00:00:00 Only Unassigned, ABDULKADIR 350.1.13.10 [facility] 4.2.7.2.686 [id number] 2021-03-30 2021-03-30 Orders Doctor AICHA 1.2.840.114 [id number] Univers 00:00:00 00:00:00 Only Unassigned, ABDULKADIR [id number] ity of [place] [facility] [id number] Norberto as [phone] [address] 2021-03-21 2021-03-21 Ancillary 1, Gal UNIVERSIT [id number] 14:21:34 15:15:15 Visit Audio Sound Y [id number] [facility] [id number] BANK [phone] BLDG. 141 2021-03-21 2021-03-21 [id number] Univers 13:45:00 13:45:00 FABY ity [facility] 2021-01-17 2021-01-17 Emergency X [facility] ERT [id number] Univers 19:28:00 19:28:00 LAURENCE ity [facility] 2020-11-21 2020-11-21 Emergency [facility] ERT [id number] Univers 15:51:00 15:51:00 ity [facility] 2020-07-20 2020-07-20 (TEL) STLMLC STLMLC [id number] Co mmon 00:00:00 00:00:00 [facility] 2020-07-12 2020-07-12 OFFICE STLMLC STLMLC [id number] Co mmon 00:00:00 00:00:00 VISIT EST Spir it PT LEVEL 3 - [facility] 2020-05-23 2020-05-23 OFFICE STLMLC STLMLC [id number] Co mmon 00:00:00 00:00:00 VISIT EST Spir it PT LEVEL 3 - [facility] 2020-02-24 2020-02-24 [facility] [id number] Common 14:42:00 14:42:[address] [facility] 2020-02-22 2020-02-22 [facility] [id number] Common 13:51:00 13:51:[address] [facility] 2019-12-10 2019-12-10 [facility] [id number] Common 15:39:00 15:39:[address] [facility] 2019-12-08 2019-12-08 [facility] [id number] Common 13:40:00 13:40:[address] [facility] 2019-12-07 2019-12-07 [facility] [id number] Common 12:05:00 12:05:[address] [facility] 2019-11-16 2019-11-16 [facility] [id number] Common 11:00:00 11:00:00 t Bone Bone and Spiri t and Joint Joint - [facility] 2019-10-21 2019-10-21 Emergency X Blaire [facility] ERT [id number] Univers 11:24:16 14:51:00 ity of [facility] 2019-09-29 2019-09-29 [facility] [id number] Common 09:21:00 09:21:00 t Bone Bone and Spiri t and Joint Joint - [facility] 2019-09-21 2019-09-21 [facility] [id number] Common 14:00:00 14:00:00 t Bone Bone and Spiri t and Joint Joint - [facility] 2019-03-13 2019-03-13 AppointEUNICE Serra [id number] [place] 09:00:00 09:00:00 t; Lesa RODRIGUEZ Ph savannah Roberto M.D. 2018-10-02 2018-10-02 [facility] [id number] [place] 15:00:00 15:00:00 t; Asher JONES i, M.D. ans POURAN, M.D. 2018-09-25 2018-09-25 [facility] [id number] [place] 10:30:00 10:30:00 t; BRANT CEJA, SHANE Health and Valery GUO, SHANE [facility] 2018-09-22 2018-09-22 [facility] BENJANYU [facility] [id number] [place] 15:30:00 15:30:00 t; Asher JONES i, M.D. ans POURAN, M.D. 2018-08-22 2018-08-22 [facility] [id number] [place] 09:30:00 09:30:00 t; [facility] 2018-07-29 2018-07-29 [facility] [id number] [place] 14:30:00 14:30:00 t; [facility] 2018-07-25 2018-07-25 [facility] KESHIA [facility] Orthopedics [id number] [place] 10:30:00 10:30:00 t; Lesa BRITT [facility] savannah SCHMITT M.D. 2018-07-22 2018-07-22 [facility] [id number] [place] 11:15:00 11:15:00 t; Lesa BRYANT [facility] Valery VALLE, Orthopedics savannah BRYANT M.D. 2018-07-15 2018-07-15 [facility] [id number] [place] 10:30:00 10:30:00 t; Lesa BRYANT [facility] Valery VALLE, Orthopedics savannah BRYANT M.D. 2018-07-09 2018-07-10 [facility] [id number] Memoria 18:05:00 00:00:00 Surgery r [place] [address] [place] 2018-07-09 2018-07-10 [facility] [id number] Memoria 18:05:00 00:00:00 Surgery r [place] 03 [place] 2018-07-09 2018-07-09 Outpatient MARCIA ValleSL [facility] [id number] 12:05:00 18:00:00 Migue Campos 2018-07-09 2018-07-09 [facility] TAMMY, [facility] [id number] [place] 13:00:00 13:00:00 t; Lesa BRYANT [facility] savannah VALLE M.D. 2018-06-30 2018-06-30 [facility] TAMMY, [facility] [id number] [place] 10:15:00 10:15:00 t; Lesa BRYANT [facility] Valery VALLE, Orthopedics savannah BRYANT M.D. 2018-06-24 2018-06-24 [facility] [id number] Memoria 00:15:00 05:59:00 r [place] [address] [place] 2018-06-24 2018-06-24 [facility] [id number] Memoria 00:15:00 05:59:00 r [place] [address] [place] 2018-06-23 2018-06-23 Outpatient MARCIA FoleySL [facility] [id number] 18:15:00 23:59:00 Geovanna Colunga 2018-06-20 2018-06-20 [facility] GONZALEZ, [facility] [id number] [place] 13:40:00 13:40:00 t; SHANE MONROE hysigeovanni ROTH, Orthopedics a boyd MONROE NP 2018-06-19 2018-06-19 [facility] BRADLEY, [facility] [id number] [place] 08:15:00 08:15:00 t; GEOVANNA FOLEY D.O. Physici KERRY, ans D.OClemente 2018-06-17 2018-06-17 [facility] [id number] [place] 15:45:00 15:45:00 t; Lesa BRYANT [facility] Valery VALLE Orthopedics savannah BRYANT M.D. 2018-06-03 2018-06-03 Appointmen EUNICE FOLEY [id number] [place] 13:45:00 13:45:00 t; GEOVANNA FOLEY D.O. [facility] savannah Vora D.O. 2018-05-16 2018-05-16 [facility] [id number] Memoria 10:52:00 13:34:00 r [place] [address] [place] 2018-05-16 2018-05-16 [facility] [id number] Memoria 10:52:00 13:34:00 r [place] 01 [place] 2018-05-16 2018-05-16 Outpatient Jose Crenshaw SL S [id number] 05:52:00 08:34:00 01 Results Test Description Test Time Test Comments Results Result Comments Source SEDIMENTATION RATE 2023-03-26 23:40:46 Test Item Value Reference Range Interpretation Comme nts ESR (test code = 95963-5) 8 See_Comment [ Automated message] The system which generated this result transmitted ref erence range: 0 - 10 mm/HR. The r eference range was not used to int erpret this result as normal/abnor mal. Lab Interpretation (test code = Normal 68999-0) [facility] METABOLIC PANEL (12558)2023-03-26 23:32:47 Test Item Value Reference Range Interpretation Comments NA (test code = 141 mmol/L 135-145 4211882380) K (test code = 4.0 mmol/L 3.5-5.0 8207438908) CL (test code = 108 mmol/L 98-108 3606865081) CO2 TOTAL (test code 25 mmol/L 23-31 = 4054350596) AGAP (test code = 8 2-16 1883912456) BUN (test code = 10 mg/dL 7-23 4732412149) GLUCOSE (test code = 101 mg/dL 70-110 8214096681) CREATININE (test code 1.04 mg/dL 0.60-1.25 = 4414305158) TOTAL BILI (test code 0.4 mg/dL 0.1-1.1 = 0863665751) CALCIUM (test code = 9.1 mg/dL 8.6-10.6 2476490123) T PROTEIN (test code 7.5 g/dL 6.3-8.2 = 2585518305) ALBUMIN (test code = 4.2 g/dL 3.5-5.0 0611553821) ALK PHOS (test code = 113 U/L 34-122 0386907397) ALTv (test code = 42 U/L 5-50 1742-6) AST(SGOT) (test code 27 U/L 13-40 = 7454415905) eGFR (test code = 78.3 mL/min/1.73m2 3266239315) RYNE (test code = RYNE) Association of [...] or urine or abnormalities in imaging tests). [facility] WITH [id number] 22:51:22 Test Item Value Reference Range Interpretation Comments WBC (test code = 6.03 See_Comment [Automated 6690-2) message] The sy stem which generated this [...] RDW-SD (test code = 47.2 fL 38.5-51.6 19632-2) RDW-CV (test code = 14.6 % 12.1-15.4 788-0) PLT (test code = 189 See_Comment [Automated 777-3) message] The sy stem which generated this result transmitted reference range : 150 - 328 10*3/ ?L. The reference r caleb was not used to interpret this result as normal/abnormal . MPV (test code = 11.1 fL 9.8-13.0 69708-2) NRBC/100 WBC (test 0.0 See_Comment [Automat ed code = 9056305559) message] The system which generated this result transmitted reference range : 0.0 - 10.0 /100 WBCs. The refer ence range was not u sed to interpret th is result as normal/abnormal . NRBC x10^3 (test code See_Comment [Auto mated = 0696519744) message] The s ystem which generated this result transmitted reference range : 10*3/?L. The reference range was not used to interpret this result as normal/abnormal . GRAN MAT (NEUT) % 43.5 % (test code = 770-8) IMM GRAN % (test code 0.20 % = 1210924122) LYMPH % (test code = 36.7 % 736-9) MONO % (test code = 6.1 % 5905-5) EOS % (test code = 12.8 % 713-8) BASO % (test code = 0.7 % 706-2) GRAN MAT x10^3(ANC) 2.63 10*3/uL 1.99-6.95 (test code = 4872382673) IMM GRAN x10^3 (test 0.00-0.06 code = 7175582897) LYMPH x10^3 (test code 2.21 10*3/uL 1.09-3.23 = 731-0) MONO x10^3 (test code 0.37 10*3/uL 0.36-1.02 = 742-7) EOS x10^3 (test code = 0.77 10*3/uL 0.06-0.53 H 711-2) BASO x10^3 (test code 0.04 10*3/uL 0.01-0.09 = 704-7) Lab Interpretation Abnormal (test code = 81130-7) [facility] 05:23:00 Test Item Value Reference Range Interpretation Comments Glucose Lvl (test code = Glucose Lvl) 96 70-99 [facility]Uap[facility]idAXTFQWSPD4331-87-73 05:23:00 Test Item Value Reference Range Interpretation Comments BUN (test code = BUN) 18 7-22 [facility] HospitalDelgzoeOIAUWQLQM1212-09-71 05:23:00 Test Item Value Reference Range Interpretation Comments Creatinine Lvl (test code = Creatinine 1.22 0.50-1.40 Lvl) [facility] HospitalTjmuktvJHQOHKNEV9251-24-31 05:23:00 Test Item Value Reference Range Interpretation Comments Sodium Lvl (test code = Sodium Lvl) 141 135-145 [facility] HospitalNugknvmATHGZLQAO8112-48-77 05:23:00 Test Item Value Reference Range Interpretation Comments Potassium Lvl (test code = Potassium 4.0 3.5-5.1 Lvl) [facility] HospitalNltixdrNRMFIJKIU8071-20-73 05:23:00 Test Item Value Reference Range Interpretation Comments Chloride Lvl (test code = Chloride Lvl) 107 95-109 [facility] HospitalXsirhqeWDOMGMVPF7224-63-53 05:23:00 Test Item Value Reference Range Interpretation Comments CO2 (test code = CO2) 26 24-32 [facility] HospitalYngzyhsDYYKDJFFD6071-92-72 05:23:00 Test Item Value Reference Range Interpretation Comments Calcium Lvl (test code = Calcium Lvl) 9.4 8.5-10.5 [facility] HospitalVubwkcbXQLAMOYUZ1569-40-31 05:23:00 Test Item Value Reference Range Interpretation Comments AGAP (test code = AGAP) 12.0 10.0-20.0 [facility] HospitalXvmsxjwSLPJKDZMK5154-75-29 05:23:00 Test Item Value Reference Range Interpretation Comments eGFR (test code = eGFR) 76 [facility]XuhwbfeQRNFLAZHTG7499-27-59 05:23:00 Test Item Value Reference Range Interpretation Comments WBC (test code = WBC) 5.1 3.7-10.4 [facility] HospitalOphmvitOXYBNOJDAN2936-01-67 05:23:00 Test Item Value Reference Range Interpretation Comments RBC (test code = RBC) 4.60 4.70-6.10 [facility] HospitalIvythcjVXEPPICIHT1414-87-18 05:23:00 Test Item Value Reference Range Interpretation Comments Hgb (test code = Hgb) 12.8 14.0-18.0 [facility] HospitalYjljmwzKLDNGURDLY8233-08-57 05:23:00 Test Item Value Reference Range Interpretation Comments Hct (test code = Hct) 39.5 42.0-54.0 [facility] HospitalZzqomnmZHLAWAONOW9572-78-68 05:23:00 Test Item Value Reference Range Interpretation Comments MCV (test code = MCV) 86.0 80.0-94.0 [facility] HospitalTxrzrxsFSZVQKVTSL5707-02-81 05:23:00 Test Item Value Reference Range Interpretation Comments MCH (test code = MCH) 27.9 pg 27.0-31.0 [facility] HospitalMbvbpruNJASNHCGQH2750-64-29 05:23:00 Test Item Value Reference Range Interpretation Comments MCHC (test code = MCHC) 32.4 32.0-36.0 [facility] HospitalZjdeeeqBLXPJUDVJO7652-04-20 05:23:00 Test Item Value Reference Range Interpretation Comments RDW (test code = RDW) 14.9 11.5-14.5 [facility] HospitalMkkzocrWYJFCLZSMO4885-17-47 05:23:00 Test Item Value Reference Range Interpretation Comments Platelet (test code = Platelet) 164 133-450 [facility] HospitalFxlttmlNMCNZTPUSS2694-72-31 05:23:00 Test Item Value Reference Range Interpretation Comments MPV (test code = MPV) 9.1 7.4-10.4 [facility] HospitalKqqzkzfEVOKXWVPJJ8667-44-18 05:23:00 Test Item Value Reference Range Interpretation Comments Segs (test code = Segs) 41.1 45.0-75.0 [facility] HospitalVfrwvmkYUXUOOARTR4349-18-19 05:23:00 Test Item Value Reference Range Interpretation Comments Lymphocytes (test code = Lymphocytes) 45.2 20.0-40.0 [facility] HospitalEqscxvnHLRRWNTDSJ9429-73-04 05:23:00 Test Item Value Reference Range Interpretation Comments Monocytes (test code = Monocytes) 5.7 2.0-12.0 [facility] HospitalLxbavgaALDCBKXSXO2204-93-97 05:23:00 Test Item Value Reference Range Interpretation Comments Eosinophils (test code = Eosinophils) 7.4 <=4.0 [facility] HospitalWnhjyzfWYQLNNSBLE2232-71-11 05:23:00 Test Item Value Reference Range Interpretation Comments Basophils (test code = Basophils) 0.6 <=1.0 [facility] HospitalZbfdignCOIHQCCQPB7713-81-26 05:23:00 Test Item Value Reference Range Interpretation Comments Neutrophils # (test code = Neutrophils 2.1 1.5-8.1 #) [facility] HospitalHumippaXCDGGAGZOQ6831-49-49 05:23:00 Test Item Value Reference Range Interpretation Comments Lymphocytes # (test code = Lymphocytes 2.3 1.0-5.5 #) [facility] HospitalAmsorppVGVZGERYTC9205-08-99 05:23:00 Test Item Value Reference Range Interpretation Comments Monocytes # (test code = Monocytes #) 0.3 <=0.8 [facility] HospitalAkrzjbeKJANDMMZPT9736-58-21 05:23:00 Test Item Value Reference Range Interpretation Comments Eosinophils # (test code = Eosinophils 0.4 <=0.5 #) [facility] HospitalEjirlbxCMFXDQKVUG5180-00-04 05:42:00 Test Item Value Reference Range Interpretation Comments Basophils # (test code = Basophils #) 0.1 <=0.2 [facility] CenterRjvlccjHKWOGV7188-58-76 17:14:29 Test Item Value Reference Range Interpretation Comments RADRPT (test code = EXAM: CT BRAIN WITHOUT RADRPT) CONTRASTDATE: 02/16/2023INDICATION: - new onset double/blurry vision, CSF leak repair.COMPARISON: Comparison was performed with prior CT dated 02/15/2023.TECHNIQUE: Axial CT images of the brain were obtained. Sagittal and coronal reformats.IV contrast: NoneDLP: Refer to CT protocol formFINDINGS: No gross significant changes noted as compared with prior study.Status post left-sided wall up mastoidectomy, with packing material and locules of gas in the mastoidectomy surgical bed.Unchanged position of right frontoparietal approach [employer] shunt catheter with its tip ending adjacent to foramen of Monro.Unchanged partial collapse of the lateral ventricles. Otherwise, no structural abnormalities noted in the cerebral hemispheres, basal ganglia, brainstem or cerebellum.Negative for acute intracranial territorial infarct, hemorrhage or midline shift.IMPRESSION:No gross significant changes noted as compared with prior study.* Status post left-sided wall up mastoidectomy, as detailed above.* Unchanged position of right frontoparietal [employer] shunt with persistent partial collapse of the lateral ventricles. * Otherwise, negative for acute intracranial territorial infarct, hemorrhage or midline shift. [facility]2023-07-08 11:07:00 Test Item Value Reference Range Interpretation Comments Glucose POC (test code = Glucose POC) 124 70-99 [facility] HospitalTofmpenWHOAKPFSQ1704-99-81 06:05:00 Test Item Value Reference Range Interpretation Comments Ca Ion WB (test code = Ca Ion WB) 1.17 1.05-1.25 [facility] HospitalKfmamysVUFBGZNYY4017-04-59 06:05:00 Test Item Value Reference Range Interpretation Comments Ca Ion at pH 7.4 WB (test code = Ca Ion 1.13 1.05-1.25 at pH 7.4 WB) [place] 55740023-07-07 19:25:18 Test Item Value Reference Range Interpretation Comments RADRPT (test code EXAM: CT TEMPORAL BONE = RADRPT) WITHOUT CONTRASTDATE: 02/15/2023 9:15INDICATION: 42 years old Male patient with history of - eval post op, CSF leak.COMPARISON: None.TECHNIQUE: Axial noncontrast CT images of the temporal bone, with coronal and sagittal reformatsFINDINGS:LEFT TEMPORAL BONE:Interval postoperative changes of the left-sided canal wall up mastoidectomy. Diffuse opacification of the residual mastoid air cells, left external auditory canal and middle ear cavity. Evaluation of the auditory ossicles is limited due to adjacent soft tissue density. The inner ear structures appear unremarkable. The vestibulocochlear apparatuses are unremarkable. The semicircular canals are covered. The course of the left 7th nerve appears to be intact. Mild degenerative change of the left temporomandibular joint.RIGHT TEMPORAL BONE: The pinna and external auditory canal are normal in appearance. No bony or membranous atresia is identified. The tympanic membrane is not abnormally thickened. There is normal pneumatization and aeration of the mastoid air cells. Tegmen tympani and mastoideum are intact. There is normal aeration of the middle ear cavity. The ossicular chain is intact. The scutum is sharp. There is normal aeration of the facial recess and sinus tympani. The cochlea has a normal number of turns. The vestibule is normally formed. The semicircular canals show no abnormalities. The facial nerve can be traced throughout its intratemporal course without interruption. The internal auditory canal is of normal caliber. The cochlear aqueduct and the vestibular aqueduct are normal in appearance. Mild to moderate degenerative changes of the right temporomandibular joint.IMPRESSION: 1. Interval postoperative changes of the canal wall of the left-sided mastoidectomy, as detailed above. [facility] AmericaWlnqdkwNLMWSL4693-58-82 19:20:21 Test Item Value Reference Range Interpretation Comments RADRPT (test code EXAM: CT HEAD WITHOUT = RADRPT) CONTRASTDATE: 02/15/2023 9:15INDICATION: 42 years old Male patient with - eval post op, CSF leak.TECHNIQUE: Multiple axial images were obtained through the head from vertex to the skull base. Axial bone algorithm reconstruction images are provided. COMPARISON: CT head 05/18/2022FINDINGS:Interval postoperative changes of the left-sided wall up mastoidectomy. Diffuse opacification of the resection bed, left middle ear cavity and left external auditory canal. No acute intracranial hemorrhage is identified.Right frontal approach ventricular shunt catheter is unchanged in position. The ventricles are slitlike, unchanged. No parenchymal mass, cervical midline shift is present. The abdi-white matter differentiation is maintained.The remaining paranasal sinuses are clear. Right mastoid air cells are clear.IMPRESSION:1. No acute intracranial hemorrhage. Interval postoperative changes of the left-sided mastoidectomy, as detailed above. [facility] GdrpdstBCYAAQ4225-52-36 16:10:38 Test Item Value Reference Range Interpretation Comments RADRPT (test code EXAM: XR CHEST 1 VIEWDATE: = RADRPT) February 15, 2023, 11:00.Age: 42 years y/o MaleINDICATION: hypoxia - hypoxiaCOMPARISON: May 19, 2022.TECHNIQUE: AP chest.IMPRESSION: Lines/tubes: Redemonstration of a partially visualized [employer] shunt coursing along the right chest wall.Heart and mediastinum: The cardiomediastinal silhouette is stable.Lungs: Scattered subsegmental atelectasis are present.Pleura: The costophrenic sulci are sharp without evidence of pleural effusion. No pneumothorax is identified on this portable radiograph.Musculoskeletal: The regional skeleton is unchanged. [facility] AmericaAnnexonMHXOXE9044-23-06 12:46:00 Test Item Value Reference Range Interpretation Comments Tube Num CSF (test xxxxxxx (02/15/23 7:46 AM) code = Tube Num CSF) [facility] KQQEKV8982-38-13 12:46:00 Test Item Value Reference Range Interpretation Comments Color CSF (test code = Color CSF) Slight Joyce [facility] AmericaAnnexonQAYZXP0424-81-82 12:46:00 Test Item Value Reference Range Interpretation Comments Clarity CSF (test code Slight *ABN*(02/15/23 = Clarity CSF) 7:46 AM) [facility] AmericaAnnexonSOEYBH8391-96-83 12:46:00 Test Item Value Reference Range Interpretation Comments Supernat CSF (test Colorless (02/15/23 7:46 code = Supernat CSF) AM) [facility] AmericaAnnexonLICKNR1534-43-85 12:46:00 Test Item Value Reference Range Interpretation Comments Nucleated Cells CSF (test code = 4 <=5 Nucleated Cells CSF) [facility] AmericaAnnexonMBFZLM7774-52-99 12:46:00 Test Item Value Reference Range Interpretation Comments RBC CSF (test code = RBC CSF) 2290 <=0 [facility] AmericaAnnexonFCIGZZ9004-76-58 12:46:00 Test Item Value Reference Range Interpretation Comments Comment CSF (test Differential not code = Comment CSF) performed on WBC count of less than 5. [facility]2023-07-07 12:46:00 Test Item Value Reference Range Interpretation Comments Glucose CSF (test code = Glucose CSF) 85 45-80 [facility]2023-07-07 12:46:00 Test Item Value Reference Range Interpretation Comments Protein CSF (test code = Protein CSF) 176 15-45 [facility]2023-07-07 12:46:00 Test Item Value Reference Range Interpretation Comments Lactic Acid CSF (test code = Lactic 2.6 0.6-2.2 Acid CSF) [facility]2023-07-07 12:46:00 Test Item Value Reference Range Interpretation Comments Source HSV (test code = Cerebral Spinal Fluid Source HSV) [facility]2023-07-07 12:46:00 Test Item Value Reference Range Interpretation Comments HSV 1 by PCR (test Negative (02/15/23 7:46 code = HSV 1 by PCR) AM) [facility]2023-07-07 12:46:00 Test Item Value Reference Range Interpretation Comments HSV 2 by PCR (test Negative 2(02/15/23 7:46 code = HSV 2 by PCR) AM) [facility]2023-07-07 12:46:00 Test Item Value Reference Range Interpretation Comments E. coli K1 LIZBETH CSF Not Detected *NA*(02/15/23 (test code = E. coli 7:46 AM) K1 LIZBETH CSF) [facility]2023-07-07 12:46:00 Test Item Value Reference Range Interpretation Comments H. influenzae LIZBETH CSF Not Detected (test code = H. *NA*(02/15/23 7:46 AM) influenzae LIZBETH CSF) [facility]2023-07-07 12:46:00 Test Item Value Reference Range Interpretation Comments L. monocytogenes LIZBETH CSF Not Detected (test code = L. *NA*(02/15/23 7:46 AM) monocytogenes LIZBETH CSF) [facility]2023-07-07 12:46:00 Test Item Value Reference Range Interpretation Comments N. meningitides LIZBETH CSF Not Detected (test code = N. *NA*(02/15/23 7:46 AM) meningitides LIZBETH CSF) [facility]2023-07-07 12:46:00 Test Item Value Reference Range Interpretation Comments S. agalactiae LIZBETH CSF Not Detected (test code = S. *NA*(02/15/23 7:46 AM) agalactiae LIZBETH CSF) [facility] DVHNVUSMLU0280-75-24 12:46:00 Test Item Value Reference Range Interpretation Comments S. pneumoniae LIZBETH CSF Not Detected (test code = S. *NA*(02/15/23 7:46 AM) pneumoniae LIZBETH CSF) [facility] TMFILOWFVC4231-93-11 12:46:00 Test Item Value Reference Range Interpretation Comments CMV LIZBETH CSF (test Not Detected *NA*(02/15/23 code = CMV LIZBETH CSF) 7:46 AM) [facility]2023-07-07 12:46:00 Test Item Value Reference Range Interpretation Comments Enterovirus LIZBETH CSF Not Detected (test code = Enterovirus *NA*(02/15/23 7:46 AM) [facility]) [facility] 12:46:00 Test Item Value Reference Range Interpretation Comments HSV 1 LIZBETH CSF (test Not Detected *NA*(02/15/23 code = HSV 1 LIZBETH CSF) 7:46 AM) [facility] [id number] 12:46:00 Test Item Value Reference Range Interpretation Comments HSV 2 LIZBETH CSF (test Not Detected *NA*(02/15/23 code = HSV 2 LIZBETH CSF) 7:46 AM) [facility] [id number] 12:46:00 Test Item Value Reference Range Interpretation Comments HPeV LIZBETH CSF (test Not Detected *NA*(02/15/23 code = HPeV LIZBETH CSF) 7:46 AM) [facility] [id number] 12:46:00 Test Item Value Reference Range Interpretation Comments VZV LIZBETH CSF (test Not Detected *NA*(02/15/23 code = VZV LIZBETH CSF) 7:46 AM) [facility] [id number] 12:46:00 Test Item Value Reference Range Interpretation Comments Tanya Ink Report No Encapsulated Budding (test code = Tanya Yeast Seen Ink Report) [facility] Otedt1952-04-53 12:46:00 Test Item Value Reference Range Interpretation Comments Gram Stain (test code No Wbc'S; Moderate RBC's = Gram Stain) No [facility]isms [facility]en [facility] Aesszl8790-92-74 12:46:00 Test Item Value Reference Range Interpretation Comments Gram Stain Report Gram Stain Performed By: (test code = Gram [facility] [place] Stain Report) [facility] [id number] 12:46:00 Test Item Value Reference Range Interpretation Comments Culture: CSF w/Gram Stain (test No Growth code = Culture: CSF w/Gram Stain) [facility] Hpymbf8715-34-39 12:46:00 Test Item Value Reference Range Interpretation Comments Tanya Ink Report Testing Performed At: (test code = [facility] Ink Report) [facility] w/Tanya [id number] 12:46:00 Test Item Value Reference Range Interpretation Comments Culture: Fungal CSF Culture In Progress w/Tanya Ink (test code = Culture: Fungal CSF w/Tanya Ink) [facility]2023-07-07 12:36:00 Test Item Value Reference Range Interpretation Comments Gluc POC Comment 1 (test code Notified RN/MD = Gluc POC Comment 1) [facility] 05:57:00 Test Item Value Reference Range Interpretation Comments Phosphorus (test code = Phosphorus) 2.0 2.5-4.5 [facility]Qkg[facility]iftHEAOMFXUF4414-61-60 05:57:00 Test Item Value Reference Range Interpretation Comments Magnesium Lvl (test code = Magnesium 2.0 1.8-2.4 Lvl) [facility]AmbffcsLSBBAAMJX4019-77-97 05:57:00 Test Item Value Reference Range Interpretation Comments Total Protein (test code = Total 6.4 6.4-8.4 Protein) [facility]GmwpnneJRPDWIIAB1354-24-27 05:57:00 Test Item Value Reference Range Interpretation Comments Albumin Lvl (test code = Albumin Lvl) 3.2 3.5-5.0 [facility] HospitalDplfyjlKCTPJQVJQ9998-67-11 05:57:00 Test Item Value Reference Range Interpretation Comments ALT (test code = ALT) 35 <=65 [place] 814993-07-07 05:57:00 Test Item Value Reference Range Interpretation Comments AST (test code = AST) 14 <=37 [place] 814993-07-07 05:57:00 Test Item Value Reference Range Interpretation Comments Alk Phos (test code = Alk Phos) 85 39-136 [facility]PuykzxxLIRFCIFZE4337-83-81 05:57:00 Test Item Value Reference Range Interpretation Comments Bili Total (test code = Bili Total) 0.6 0.2-1.3 [facility] CenterZrdlemdVYZOGVDJH9038-89-07 05:57:00 Test Item Value Reference Range Interpretation Comments Bili Direct (test code = Bili Direct) 0.1 <=0.3 [facility] CenterHjnauazIGJSEWRYH4848-53-62 05:57:00 Test Item Value Reference Range Interpretation Comments Bili Indirect (test code = Bili 0.5 <=1.0 Indirect) [facility] CenterQetabafVBJPEWZBD4545-23-13 05:57:00 Test Item Value Reference Range Interpretation Comments Globulin (test code = Globulin) 3.2 2.7-4.2 [facility] CenterQszslxrWTGEJZXWN8900-08-22 05:57:00 Test Item Value Reference Range Interpretation Comments A/G Ratio (test code = A/G Ratio) 1.0 1 0.7-1.6 [facility]uecrxgVRMYINQLHX4816-29-94 04:39:00 Test Item Value Reference Range Interpretation Comments PT (test code = PT) 12.8 s 12.0-14.7 [facility] CenterCiglyrjYHBZGENVDC5440-32-22 04:39:00 Test Item Value Reference Range Interpretation Comments INR (test code = INR) 0.96 1 0.85-1.17 [facility]XuydhoqOIBHYPYKGK5635-29-36 04:39:00 Test Item Value Reference Range Interpretation Comments PTT (test code = PTT) 23.4 s 22.9-35.8 [facility] Wo Urueyfha5130-29-18 03:58:53EXAMINATION: CT HEAD WO CONTRAST CLINICAL HISTORY: ADAMSON HTN [employer] shunt COMPARISON: CT 05/25/2018. MRI . TECHNIQUE: Noncontrast images of the brain were obtained from the skull base to the vertex.Both soft tissue and bone reconstruction algorithms were performed. CT scans are performed using radiation dose reduction techniques (iterative reconstruction and/or automated exposure control). Technical factors are evaluated and adjusted to ensure appropriate moderation of exposure. Automated dose management technology is applied to adjust radiation exposure while achieving a diagnostic quality image. FINDINGS: Residual intravascular enhancement. Right frontal approach ventriculoperitoneal shunt catheter terminates near the foramen of Monro. Slitlike appearance of the lateral ventricles. The brain parenchyma is unremarkable. The abdi-white matter differentiation is preserved. No evidence of acute intra or extra-axial hemorrhage, mass, mass effect or acute territorial infarction. There is no acute hydrocephalus. Basal cisterns are patent. No acute soft tissue hematoma or laceration. No skull fractures or aggressive bony lesions. Paranasal sinuses and mastoid air cells are clear. Orbits are normal. IMPRESSION: 1. Right frontal approach ventriculoperitoneal shunt catheter present. Slitlike appearance of the lateral ventricles, possibly due to over shunting. Recommend correlation. 2. No other acute intracranial abnormality identified. [id number] Urine tepychq2130-60-58 02:15:00 Test Item Value Reference Range Interpretation Comments Urine culture (test SEE COMMENT Bacteriu katarzyna screen code = 4303875) negative. [facility]2023-05-29 02:15:00 Test Item Value Reference Range Interpretation Comments Urine culture (test SEE COMMENT Bacteriu katarzyna screen code = 2392055) negative. [facility]2023-05-29 02:15:00 Test Item Value Reference Range Interpretation Comments Urine culture (test SEE COMMENT Bacteriu katarzyna screen code = 3803086) negative. [facility]2023-05-29 02:15:00 Test Item Value Reference Range Interpretation Comments Urine culture (test SEE COMMENT Bacteriu katarzyna screen code = 5166566) negative. [address]05-29 02:15:00 Test Item Value Reference Range Interpretation Comments Urine culture (test SEE COMMENT Bacteriu katarzyna screen code = 8403554) negative. [address]05-29 02:15:00 Test Item Value Reference Range Interpretation Comments Urine culture (test SEE COMMENT Bacteriu katarzyna screen code = 7155500) negative. [address]05-29 02:15:00 Test Item Value Reference Range Interpretation Comments Urine culture (test SEE COMMENT Bacteriu katarzyna screen code = 9822737) negative. [address]05-29 02:15:00 Test Item Value Reference Range Interpretation Comments Urine culture (test SEE COMMENT Bacteriu katarzyna screen code = 3224143) negative. [address]05-29 02:15:00 Test Item Value Reference Range Interpretation Comments Urine culture (test SEE COMMENT Bacteriu katarzyna screen code = 2090572) negative. [facility] kfzjoxq2743-18-38 02:15:00 Test Item Value Reference Range Interpretation Comments Urine culture (test SEE COMMENT Bacteriu katarzyna screen code = 9230134) negative. [facility] ebqjiuy9942-11-56 02:15:00 Test Item Value Reference Range Interpretation Comments Urine culture (test SEE COMMENT Bacteriu katarzyna screen code = 3170117) negative. [facility] mghupyp1326-86-63 02:15:00 Test Item Value Reference Range Interpretation Comments Urine culture (test SEE COMMENT Bacteriu katarzyna screen code = 2054348) negative. [facility] for LLWZIAKP5552-59-31 01:07:29EXAMINATION: CTA ABD PEL FOR BLEEDING CLINICAL HISTORY: hematemesis TECHNIQUE: Multiple CT angiographic images of the abdomen and pelvis were obtained during intravenous administration of iodinated contrast. Multiple computerized reformatted images as well as 3-D volume rendered images were also obtained. Precontrast images of the abdomen were also obtained. Delayed phase imaging was also obtained. CT imaging was performed with iterative reconstruction technique and/or automated exposure control to reduce radiation dose. COMPARISON: None. FINDINGS: CTA: Aorta: No aortic aneurysm, dissection, or pseudoaneurysm. Minimal calcified plaque in the abdominal aorta. Celiac artery: Celiac artery and major branches are unremarkable. Superior mesenteric artery: Superior mesenteric artery and major branches are unremarkable. Inferior mesenteric artery: Inferior mesenteric artery and major branches are unremarkable. Renal arteries: Bilateral renal arteries are normal. Right common iliac artery and external iliac artery: No significant atherosclerotic disease or stenosis. Mild atheromatous plaque in the common femoral artery. Left common iliac artery and external iliac artery: No significant atherosclerotic disease or stenosis. Portal venous and venous vasculature: Portal venous and venous vasculature areunremarkable. ABDOMEN/PELVIS: LOWER THORAX: Prominent but morphologically normal right cardiophreniclymph node. LIVER: Subcentimeter hypoattenuating lesion in segment 8, too small to characterize. BILIARY: Normal. SPLEEN: Normal. PANCREAS: Normal. GI: Diffuse gastric wall thickening. The small bowelare unremarkable. Diffuse liquid stool in the colon with mild colonic wall thickening in the rectosigmoid colon. Scattered colonic diverticulosis without acute diverticulitis. Appendix is not seen. No obstruction. No active hemorrhage in the stomach, small, or large bowel. ADRENALS: Normal. 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 Symmetric renal enhancement. No collecting system calculi, hydronephrosis, hydroureter. Urinary Bladder: Urinary bladder is unremarkable.Reproductive Organs: Mildly enlarged prostate gland. Seminal vesicles are unremarkable. PERITONEUM/RETROPERITONEUM: No free fluid. No free air. [employer] MANA[employer] shunt coursing in the anterior right chest and abdominal wall enters the right upper quadrant were it terminates just inferior to the liver. LYMPH NODES: No enlarged lymph nodes in the abdomen or pelvis. BONES: No acute osseous abnormality. Mild spinal degenerative changes. SOFT TISSUES: Small bilateral fat-containing inguinal tristian ias without acute complication. Postsurgical changes in the abdominal wall. Focal fatty atrophy is seen in the right internal oblique muscle. IMPRESSION: 1.No acute hemorrhage is identified in the abdomen or pelvis.2.Findings suggestive of gastritis and proctocolitis. Liquid stool throughout the colon, correlate with diarrheal state.3.Uncomplicated colonic diverticulosis.4.Ancillary findings as described. [id number] CBC W/AUTO [id number] 00:00:00 Test Item Value Reference Range Interpretation Comments NUCLEATED RBCS (test 0.0 /100 WBC'S See_Comment [Aut omated message] code = 88845-3) The system [facility] generated this result transmit leydi reference range : 0.0 /100 WBC'S. The reference range was not used to interpret this result as normal/abnormal . ABSOLUTE EOSINOPHILS 0.56 K/UL See_Comment H [Autom ated message] (test code = The system [employer] 08998-3) generated this result transmit leydi reference range : 0.00-0.50 K/UL. The reference range was not used to interpret this result as normal/abnormal . ABSOLUTE LYMPHOCYTES 1.71 K/UL See_Comment [Autom ated message] (test code = The system [employer] 35646-0) generated this result transmit leydi reference range : 1.00-4.00 K/UL. The reference range was not used to interpret this result as normal/abnormal . ABSOLUTE MONOCYTES 0.34 K/UL See_Comment [Automat ed message] (test code = The system [employer] 81588-2) generated this result transmit leydi reference range : 0.20-1.00 K/UL. The reference range was not used to interpret this result as normal/abnormal . ABSOLUTE NEUTROPHILS 3.05 K/UL See_Comment [Autom ated message] (test code = The system [employer] 63858-3) generated this result transmit leydi reference range : 1.50-7.50 K/UL. The reference range was not used to interpret this result as normal/abnormal . BASOPHILS (test code 0.5 % = 60984-1) EOSINOPHILS (test 9.8 % code = 46248-1) HEMATOCRIT (test 42.9 % See_Comment [Automated message] code = 23578-2) The system [employer] generated this result transmit leydi reference range : 40.0-51.0 %. Th e reference range was not used to interpret this result as normal/abnormal . HEMOGLOBIN (test 13.9 G/DL See_Comment [Automated message] code = 718-7) The system [employer] generated this result transmit leydi reference range : 13.5-17.0 G/DL. The reference range was not used to interpret this result as normal/abnormal . LYMPHOCYTES (test 29.9 % code = 86277-6) MCH (test code = 27.4 PG See_Comment [Automated message] 75841-8) The system [employer] generated this result transmit leydi reference range : 25.0-33.0 PG. T he reference range was not used to interpret this result as normal/abnormal . MCHC (test code = 32.4 G/DL See_Comment [Automate d message] 10985-3) The system [employer] generated this result transmit leydi reference range : 31.0-36.0 G/DL. The reference range was not used to interpret this result as normal/abnormal . MCV (test code = 84.6 fL See_Comment [Automated message] 16738-5) The system [employer] generated this result transmit leydi reference range : 80.0-99.0 fL. T he reference range was not used to interpret this result as normal/abnormal . MONOCYTES (test code 5.9 % = 40823-2) NEUTROPHILS (test 53.4 % code = 45396-9) PLATELET COUNT (test 202 K/UL See_Comment [Autom ated message] code = 67798-6) The system [employer] generated this result transmit leydi reference range : 130-400 K/UL. T he reference range was not used to interpret this result as normal/abnormal . RBC (test code = 5.07 M/UL See_Comment [Automated message] 45905-8) The system [employer] generated this result transmit leydi reference range : 4.50-6.10 M/UL. The reference range was not used to interpret this result as normal/abnormal . RDW (test code = 13.5 % See_Comment [Automated message] 45986-4) The system [employer] generated this result transmit leydi reference range : 11.5-15.0 %. Th e reference range was not used to interpret this result as normal/abnormal . WBC (test code = 5.7 K/UL See_Comment [Automated message] 78301-2) The system [employer] generated this result transmit leydi reference range : 3.5-11.0 K/UL. The reference range was not used to interpret this result as normal/abnormal . HEMOGLOBIN [id number] 00:00:00 Test Item Value Reference Range Interpretation Comments HEMOGLOBIN A1c (test 6.2 % See_Comment H [Autom ated message] The code = 4548-4) system which generated this result tra nsmitted reference range : 4.2-5.6 %. The referenc e range was not used to interpret this result as normal/abnormal . TSH REFLEX TO FREE [id number] 00:00:00 Test Item Value Reference Range Interpretation Comments TSH REFLEX TO FREE 1.480 UIU/ML See_Comment [Automat ed message] T4 (test code = The system [facility] 25036-2) generated this result transmitted ref erence range: 0.400-4. 100 UIU/ML. The ref erence range was not u sed to interpret this result as normal/abnor mal. URINALYSIS (CULTURE IF INDICATED)2022-12-17 00:00:00 Test Item Value Reference Range Interpretation Comments APPEARANCE (test code = CLEAR CLEAR 5767-9) BACTERIA (test code = NONE SEEN NONE SEEN 47970-3) BILIRUBIN (test code = NEGATIVE NEGATIVE 1770-3) CASTS, HYALINE (test NONE SEEN NONE-TRACE code = 49601-4) COLOR (test code = YELLOW YELLOW-STRAW 1778-6) EPITHELIAL CELLS (test 0-5 /HPF See_Comment [Aut omated message] code = 33869-0) The system [employer] generated this result transmitted ref erence range: 0-5 /HPF . The reference range was not used to int erpret this result as normal/abnormal . GLUCOSE (test code = NEGATIVE NEGATIVE 5792-7) KETONES (test code = NEGATIVE NEGATIVE 5797-6) LEUKOCYTE ESTERASE NEGATIVE NEGATIVE (test code = 5799-2) NITRITE (test code = NEGATIVE NEGATIVE 5802-4) OCCULT BLOOD (test code NEGATIVE NEGATIVE = 79739-9) pH (test code = 5803-2) 5.0 5.0-9.0 PROTEIN (test code = NEGATIVE NEGATIVE 66685-8) RED BLOOD CELLS (test 0-2 /HPF See_Comment [Auto mated message] code = 87213-2) The system [employer] generated this result transmitted ref erence range: 0-2 /HPF . The reference range was not used to int erpret this result as normal/abnormal . SPECIFIC GRAVITY (test 1.017 1.005-1.035 code = 5811-5) UROBILINOGEN (test code 0.2 MG/DL See_Comment [Au tomated message] = 97698-2) The system [employer] generated this result transmitted ref erence range: <=2.0 MG /DL. The reference r caleb was not used to interpret this result as normal/abnor mal. WHITE BLOOD CELLS (test 0-5 /HPF See_Comment [Au tomated message] code = 07646-9) The system [employer] generated this result transmitted ref erence range: 0-5 /HPF . The reference range was not used to int erpret this result as normal/abnormal . LIPID PANEL WITH REFLEX DIRECT [id number] 00:00:00 Test Item Value Reference Range Interpretation Comments CALC LDL CHOL (test 118 MG/DL See_Comment H [Automa leydi message] code = 72588-5) The system [employer] generated this result transmit leydi reference range : <100 MG/DL. The reference range was not used to interpret this result as normal/abnormal . CHOLESTEROL (test code 193 MG/DL See_Comment [Aut omated message] = 2093-3) The system [employer] generated this result transmit leydi reference range : <200 MG/DL. The reference range was not used to interpret this result as normal/abnormal . HDL CHOLESTEROL (test 50 MG/DL See_Comment [Auto mated message] code = 2085-9) The system [employer] generated this result transmit leydi reference range : >39 MG/DL. The refe rence range was not u sed to interpret th is result as normal/abnormal . RISK RATIO LDL/HDL 2.36 RATIO See_Comment [Automat ed message] (test code = 95990-3) The sy stem which generated this result transmit leydi reference range : <3.55 RATIO. Th e reference range was not used to interpret this result as normal/abnormal . TRIGLYCERIDES (test 133 MG/DL See_Comment [Automa leydi message] code = 2571-8) The system [employer] generated this result transmit leydi reference range : <150 MG/DL. The reference range was not used to interpret this result as normal/abnormal . COMPREHENSIVE METABOLIC [id number] 00:00:00 Test Item Value Reference Range Interpretation Comments ALBUMIN (test code = 4.3 G/DL See_Comment [Autom ated message] 1751-7) The system [employer] generated this result transmit leydi reference range [...] MG/DL See_Comment [Automated message] 3094-0) The system [employer] generated this result transmit leydi reference range : 6-20 MG/DL. The reference range was not used to interpret this result as normal/abnormal . CALCIUM (test code = 9.8 MG/DL See_Comment [Autom ated message] 53799-2) The system [employer] generated this result transmit leydi reference range : 8.5-10.5 MG/DL. The reference range was not used to interpret this result as normal/abnormal . CALC A/G RATIO (test 1.6 RATIO See_Comment [Autom ated message] code = 1759-0) The system [facility] generated this result transmit leydi reference range : 1.0-2.6 RATIO. The reference range was not used to interpret this result as normal/abnormal . CALC BUN/CREAT (test 13 RATIO See_Comment [Autom ated message] code = 3097-3) The system [facility] generated this result transmit leydi reference range : 6-28 RATIO. The reference range was not used to interpret this result as normal/abnormal . CALC GLOBULIN (test 2.7 G/DL See_Comment [Automa leydi message] code = 07280-7) The system [facility] generated this result transmit leydi reference range : 1.9-3.7 G/DL. T he reference range was not used to interpret this result as normal/abnormal . CARBON DIOXIDE (test 25 MEQ/L See_Comment [Autom ated message] code = 1963-8) The system [facility] generated this result transmit leydi reference range : 19-31 MEQ/L. Th e reference range was not used to interpret this result as normal/abnormal . CHLORIDE (test code 107 MEQ/L See_Comment [Automa leydi message] = 5-0) The system [facility] generated this result transmit leydi reference range : 95-107 MEQ/L. T he reference range was not used to interpret this result as normal/abnormal . CREATININE (test 1.22 MG/DL See_Comment [Automated message] code = 2160-0) The system [facility] generated this result transmit leydi reference range : 0.80-1.40 MG/DL . The reference range was not used to interpret this result as normal/abnormal . eGFR (2020 CKD-EPI) 76 ML/MIN/1.73 See_Comment [Auto mated message] (test code = The system [facility] 69366-3) generated this result transmit leydi reference range : >60 ML/MIN/1.73. Th e reference range was not used to interpret this result as normal/abnormal . GLUCOSE (test code = 107 MG/DL See_Comment H [Autom ated message] 1558-6) The system [facility] generated this result transmit leydi reference range : 70-99 MG/DL. Th e reference range was not used to interpret this result as normal/abnormal . POTASSIUM (test code 4.6 MEQ/L See_Comment [Autom ated message] = 2343-3) The system [employer] generated this result transmit leydi reference range : 3.5-5.4 MEQ/L. The reference range was not used to interpret this result as normal/abnormal . PROTEIN, TOTAL (test 7.0 G/DL See_Comment [Autom ated message] code = 2885-2) The system [employer] generated this result transmit leydi reference range : 6.1-8.3 G/DL. T he reference range was not used to interpret this result as normal/abnormal . AST (test code = 17 U/L See_Comment [Automated message] 1920-8) The system [employer] generated this result transmit leydi reference range : 9-50 U/L. The reference range was not used to interpret this result as normal/abnormal . ALT (test code = 21 U/L See_Comment [Automated message] 1742-6) The system [employer] generated this result transmit leydi reference range : 5-50 U/L. The reference range was not used to interpret this result as normal/abnormal . SODIUM (test code = 141 MEQ/L See_Comment [Automa leydi message] 2951-2) The system [employer] generated this result transmit leydi reference range : 133-146 MEQ/L. The reference range was not used to interpret this result as normal/abnormal . [id number] 21:10:35 Test Item Value Reference Range Interpretation [...] mastoideum, similar to prior CT temporal bone. [facility] America[facility]agaweiJKWKRL7377-51-06 21:10:35 Test Item Value Reference Range Interpretation [...] mastoideum, similar to prior CT temporal bone. [facility] AND [id number] 06:16:00 Test Item Value Reference Range Interpretation Comments UA Color (test code = Yellow *NA*(05/19/22 UA Color) 1:16 AM) [facility] AND [id number] 06:16:00 Test Item Value Reference Range Interpretation Comments UA Turbidity (test code = Clear (05/19/22 1:16 UA Turbidity) AM) [facility] AND [id number] 06:16:00 Test Item Value Reference Range Interpretation Comments UA Spec Grav (test code = UA Spec 1.010 1 Grav) [facility] AND [id number] 06:16:00 Test Item Value Reference Range Interpretation Comments UA pH (test code = UA pH) 6.0 1 5.0-8.0 [facility] AND [id number] 06:16:00 Test Item Value Reference Range Interpretation Comments UA Protein (test code = UA Negative mg/dL Protein) [facility] AND [id number] 06:16:00 Test Item Value Reference Range Interpretation Comments UA Glucose (test code = UA Negative mg/dL Glucose) [facility] AND [id number] 06:16:00 Test Item Value Reference Range Interpretation Comments UA Ketones (test code = UA Negative mg/dL Ketones) [facility] AND [id number] 06:16:00 Test Item Value Reference Range Interpretation Comments UA Bili (test code = Negative *NA*(05/19/22 UA Bili) 1:16 AM) [facility] AND [id number] 06:16:00 Test Item Value Reference Range Interpretation Comments UA Blood (test code = Negative (05/19/22 1:16 UA Blood) AM) [facility] AND [id number] 06:16:00 Test Item Value Reference Range Interpretation Comments UA Urobilinogen (test code = UA 0.2 0.1-1.0 Urobilinogen) [facility] AND [id number] 06:16:00 Test Item Value Reference Range Interpretation Comments UA Nitrite (test code Negative (05/19/22 1:16 = UA Nitrite) AM) [facility] AND [id number] 06:16:00 Test Item Value Reference Range Interpretation Comments UA Leuk Est (test Negative (05/19/22 1:16 code = UA Leuk Est) AM) [facility] AND [id number] 06:16:00 Test Item Value Reference Range Interpretation Comments UA Sq Epi (test code = UA Sq Epi) Rare /LPF [facility] AND [id number] 06:16:00 Test Item Value Reference Range Interpretation Comments UA WBC (test code = no gt See_Comment [Automa leydi message] The UA WBC) system which ge nerated this result transmit leydi reference range : <=5. The reference range was not used to interpr et this result as krishna l/abnormal. [facility] AND [id number] 06:16:00 Test Item Value Reference Range Interpretation Comments UA RBC (test code = 1 See_Comment [Automa leydi message] The UA RBC) system which ge nerated this result transmit leydi reference range : <=2. The reference range was not used to interpr et this result as krishna l/abnormal. [facility] AND [id number] 06:16:00 Test Item Value Reference Range Interpretation Comments UA Color (test code = Yellow *NA*(05/19/22 UA Color) 1:16 AM) [facility] AND [id number] 06:16:00 Test Item Value Reference Range Interpretation Comments UA Turbidity (test code = Clear (05/19/22 1:16 UA Turbidity) AM) [facility] AND [id number] 06:16:00 Test Item Value Reference Range Interpretation Comments UA Spec Grav (test code = UA Spec 1.010 1 Grav) [facility] AND [id number] 06:16:00 Test Item Value Reference Range Interpretation Comments UA pH (test code = UA pH) 6.0 1 5.0-8.0 [facility] AND [id number] 06:16:00 Test Item Value Reference Range Interpretation Comments UA Protein (test code = UA Negative mg/dL Protein) [facility] AND [id number] 06:16:00 Test Item Value Reference Range Interpretation Comments UA Glucose (test code = UA Negative mg/dL Glucose) [facility] AND [id number] 06:16:00 Test Item Value Reference Range Interpretation Comments UA Ketones (test code = UA Negative mg/dL Ketones) [facility] AND [id number] 06:16:00 Test Item Value Reference Range Interpretation Comments UA Bili (test code = Negative *NA*(05/19/22 UA Bili) 1:16 AM) [facility] AND [id number] 06:16:00 Test Item Value Reference Range Interpretation Comments UA Blood (test code = Negative (05/19/22 1:16 UA Blood) AM) [facility] AND [id number] 06:16:00 Test Item Value Reference Range Interpretation Comments UA Urobilinogen (test code = UA 0.2 0.1-1.0 Urobilinogen) [facility] AND [id number] 06:16:00 Test Item Value Reference Range Interpretation Comments UA Nitrite (test code Negative (05/19/22 1:16 = UA Nitrite) AM) [facility] AND [id number] 06:16:00 Test Item Value Reference Range Interpretation Comments UA Leuk Est (test Negative (10/8/22 1:16 code = UA Leuk Est) AM) [facility] [id number] 06:16:00 Test Item Value Reference Range Interpretation Comments UA Sq Epi (test code = UA Sq Epi) Rare /LPF [facility] [id number] 06:16:00 Test Item Value Reference Range Interpretation Comments UA WBC (test code = UA WBC) no gt <=5 [facility] [id number] 06:16:00 Test Item Value Reference Range Interpretation Comments UA RBC (test code = UA RBC) 1 <=2 [facility] [id number] 03:27:00 Test Item Value Reference Range Interpretation Comments HS Troponin I Baseline (test code = HS 48 Troponin I Baseline) [facility] [id number] 03:27:00 Test Item Value Reference Range Interpretation Comments HS Troponin I Baseline (test code = HS 48 Troponin I Baseline) [facility] [id number] 03:18:00 Test Item Value Reference Range Interpretation Comments HS Troponin I (test code = HS Troponin 59 I) [facility] [id number] 03:18:00 Test Item Value Reference Range Interpretation Comments Phosphorus (test code = Phosphorus) 2.7 2.5-4.5 [facility] [id number] 03:18:00 Test Item Value Reference Range Interpretation Comments Magnesium Lvl (test code = Magnesium 2.2 1.8-2.4 Lvl) [facility] [id number] 03:18:00 Test Item Value Reference Range Interpretation Comments Ca Ion WB (test code = Ca Ion WB) 1.07 1.05-1.25 [facility]ATHYRO[facility] [id number] 03:18:00 Test Item Value Reference Range Interpretation Comments Ca Ion at pH 7.4 WB (test code = Ca Ion 1.09 1.05-1.25 at pH 7.4 WB) [facility] [id number] 03:18:00 Test Item Value Reference Range Interpretation Comments HS Troponin I (test code = HS Troponin 59 I) [facility] [employer] [id number] 03:18:00 Test Item Value Reference Range Interpretation Comments Phosphorus (test code = Phosphorus) 2.7 2.5-4.5 [facility] [employer] [id number] 03:18:00 Test Item Value Reference Range Interpretation Comments Magnesium Lvl (test code = Magnesium 2.2 1.8-2.4 Lvl) [facility] [id number] 03:18:00 Test Item Value Reference Range Interpretation Comments Ca Ion WB (test code = Ca Ion WB) 1.07 1.05-1.25 [facility] [id number] 03:18:00 Test Item Value Reference Range Interpretation Comments Ca Ion at pH 7.4 WB (test code = Ca Ion 1.09 1.05-1.25 at pH 7.4 WB) [facility] CenterBeroomersCARGray Routes Innovative DistributionAC [id number] 01:30:00 Test Item Value Reference Range Interpretation Comments HS Troponin I 1 Hr (test code = HS 41 Troponin I 1 Hr) [facility] America[facility] [id number] 01:30:00 Test Item Value Reference Range Interpretation Comments HS Troponin I 0 to 1 xxxxxxx (05/18/22 8:30 Hour Delta (test code = PM) HS Troponin I 0 to 1 Hour Delta) [facility] Centerzhouwu [id number] 01:30:00 Test Item Value Reference Range Interpretation Comments Glucose Lvl (test code = Glucose Lvl) 107 70-99 [facility] [id number] 01:30:00 Test Item Value Reference Range Interpretation Comments BUN (test code = BUN) 03-02 [facility] [id number] 01:30:00 Test Item Value Reference Range Interpretation Comments Creatinine Lvl (test code = Creatinine 1.37 0.50-1.40 Lvl) [facility] [id number] 01:30:00 Test Item Value Reference Range Interpretation Comments Sodium Lvl (test code = Sodium Lvl) 137 135-145 [facility] [id number] 01:30:00 Test Item Value Reference Range Interpretation Comments Potassium Lvl (test code = Potassium 3.8 3.5-5.1 Lvl) [facility] [id number] 01:30:00 Test Item Value Reference Range Interpretation Comments Chloride Lvl (test code = Chloride Lvl) 107 95-109 [facility] [id number] 01:30:00 Test Item Value Reference Range Interpretation Comments CO2 (test code = CO2) 25 24-32 [facility] [id number] 01:30:00 Test Item Value Reference Range Interpretation Comments Calcium Lvl (test code = Calcium Lvl) 9.7 8.5-10.5 [facility] [id number] 01:30:00 Test Item Value Reference Range Interpretation Comments Total Protein (test code = Total 7.6 6.4-8.4 Protein) [facility] [id number] 01:30:00 Test Item Value Reference Range Interpretation Comments Albumin Lvl (test code = Albumin Lvl) 3.8 3.5-5.[address] [facility] [employer] [id number] 01:30:00 Test Item Value Reference Range Interpretation Comments ALT (test code = ALT) 38 See_Comment [Auto mated message] The system which ge nerated this result transmit leydi reference range : <=65. The reference range was not used to interpr et this result as krishna l/abnormal. [facility] [employer] [id number] 01:30:00 Test Item Value Reference Range Interpretation Comments AST (test code = AST) 15 See_Comment [Auto mated message] The system which ge nerated this result transmit leydi reference range : <=37. The reference range was not used to interpr et this result as krishna l/abnormal. [facility] [employer] [id number] 01:30:00 Test Item Value Reference Range Interpretation Comments Alk Phos (test code = Alk Phos) 119 39-[address] [facility] [employer] [id number] 01:30:00 Test Item Value Reference Range Interpretation Comments Bili Total (test code = Bili Total) 0.6 0.2-1.[address] [facility] [employer] [id number] 01:30:00 Test Item Value Reference Range Interpretation Comments AGAP (test code = AGAP) 8.8 10.0-20.[address] [facility] [employer] [id number] 01:30:00 Test Item Value Reference Range Interpretation Comments B/C Ratio (test code = B/C Ratio) 13 1 6-[address] [facility] [employer] [id number] 01:30:00 Test Item Value Reference Range Interpretation Comments Globulin (test code = Globulin) 3.8 2.7-4.[address] [facility]2022-10-08 01:30:00 Test Item Value Reference Range Interpretation Comments A/G Ratio (test code = A/G Ratio) 1.0 1 0.7-1.6 [place] [id number] 01:30:00 Test Item Value Reference Range Interpretation Comments eGFR (test code = eGFR) 66 [place] 999032-10-08 01:30:00 Test Item Value Reference Range Interpretation Comments Lipase Lvl (test code = Lipase Lvl) 75 73-393 [facility] [id number] 01:30:00 Test Item Value Reference Range Interpretation Comments HS Troponin I 1 Hr (test code = HS 41 Troponin I 1 Hr) [facility] [id number] 01:30:00 Test Item Value Reference Range Interpretation Comments HS Troponin I 0 to 1 xxxxxxx (05/18/22 8:30 Hour Delta (test code = PM) HS Troponin I 0 to 1 Hour Delta) [facility]2022-10-08 01:30:00 Test Item Value Reference Range Interpretation Comments Glucose Lvl (test code = Glucose Lvl) 107 70-[address] [facility]2022-10-08 01:30:00 Test Item Value Reference Range Interpretation Comments BUN (test code = BUN) 18 7-[address] [facility]2022-10-08 01:30:00 Test Item Value Reference Range Interpretation Comments Creatinine Lvl (test code = Creatinine 1.37 0.50-1.40 Lvl) [facility]2022-10-08 01:30:00 Test Item Value Reference Range Interpretation Comments Sodium Lvl (test code = Sodium Lvl) 137 135-145 [place] 999032-10-08 01:30:00 Test Item Value Reference Range Interpretation Comments Potassium Lvl (test code = Potassium 3.8 3.5-5.1 Lvl) [place] 999032-10-08 01:30:00 Test Item Value Reference Range Interpretation Comments Chloride Lvl (test code = Chloride Lvl) 107 95-[address] [facility]2022-10-08 01:30:00 Test Item Value Reference Range Interpretation Comments CO2 (test code = CO2) 25 24-32 [place] 999032-10-08 01:30:00 Test Item Value Reference Range Interpretation Comments Calcium Lvl (test code = Calcium Lvl) 9.7 8.5-10.5 [place] 999032-10-08 01:30:00 Test Item Value Reference Range Interpretation Comments Total Protein (test code = Total 7.6 6.4-8.4 Protein) [place] 999032-10-08 01:30:00 Test Item Value Reference Range Interpretation Comments Albumin Lvl (test code = Albumin Lvl) 3.8 3.5-5.0 [place] 999032-10-08 01:30:00 Test Item Value Reference Range Interpretation Comments ALT (test code = ALT) 38 <=65 [place] 999032-10-08 01:30:00 Test Item Value Reference Range Interpretation Comments AST (test code = AST) 15 <=37 [place] 999032-10-08 01:30:00 Test Item Value Reference Range Interpretation Comments Alk Phos (test code = Alk Phos) 119 39-136 [place] 999032-10-08 01:30:00 Test Item Value Reference Range Interpretation Comments Bili Total (test code = Bili Total) 0.6 0.2-1.[address] [facility]2022-10-08 01:30:00 Test Item Value Reference Range Interpretation Comments AGAP (test code = AGAP) 8.8 10.0-20.0 [place] 999032-10-08 01:30:00 Test Item Value Reference Range Interpretation Comments B/C Ratio (test code = B/C Ratio) 13 1 6-25 [place] 999032-10-08 01:30:00 Test Item Value Reference Range Interpretation Comments Globulin (test code = Globulin) 3.8 2.7-4.2 [place] 999032-10-08 01:30:00 Test Item Value Reference Range Interpretation Comments A/G Ratio (test code = A/G Ratio) 1.0 1 0.7-1.6 [place] 999032-10-08 01:30:00 Test Item Value Reference Range Interpretation Comments eGFR (test code = eGFR) 66 [place] 999032-10-08 01:30:00 Test Item Value Reference Range Interpretation Comments Lipase Lvl (test code = Lipase Lvl) 75 73-393 [facility] [id number] 20:19:00 Test Item Value Reference Range Interpretation Comments HS Troponin I (test code = HS Troponin [address] I) [facility]2022-10-07 20:19:00 Test Item Value Reference Range Interpretation Comments Glucose Lvl (test code = Glucose Lvl) 101 70-99 [place] 999032-10-07 20:19:00 Test Item Value Reference Range Interpretation Comments BUN (test code = BUN) 17 7-[address] [facility]2022-10-07 20:19:00 Test Item Value Reference Range Interpretation Comments Creatinine Lvl (test code = Creatinine 1.36 0.50-1.40 Lvl) [facility]2022-10-07 20:19:00 Test Item Value Reference Range Interpretation Comments Sodium Lvl (test code = Sodium Lvl) 139 135-[address] [facility]2022-10-07 20:19:00 Test Item Value Reference Range Interpretation Comments Potassium Lvl (test code = Potassium 3.6 3.5-5.1 Lvl) [facility]2022-10-07 20:19:00 Test Item Value Reference Range Interpretation Comments Chloride Lvl (test code = Chloride Lvl) 106 95-[address] [facility]2022-10-07 20:19:00 Test Item Value Reference Range Interpretation Comments CO2 (test code = CO2) 25 24-[address] [facility]2022-10-07 20:19:00 Test Item Value Reference Range Interpretation Comments Calcium Lvl (test code = Calcium Lvl) 9.9 8.5-10.[address] [facility]2022-10-07 20:19:00 Test Item Value Reference Range Interpretation Comments AGAP (test code = AGAP) 11.6 10.0-20.0 [place] 999032-10-07 20:19:00 Test Item Value Reference Range Interpretation Comments eGFR (test code = eGFR) [address] [facility]2022-10-07 20:19:00 Test Item Value Reference Range Interpretation Comments Lactic Acid Lvl (test code = Lactic 1.1 0.5-2.2 Acid Lvl) [facility] [id number] 20:19:00 Test Item Value Reference Range Interpretation Comments WBC (test code = WBC) 8.3 3.7-10.4 [id number] 20:19:00 Test Item Value Reference Range Interpretation Comments RBC (test code = RBC) 5.68 4.70-6.10 [facility] Hos[id number] 20:19:00 Test Item Value Reference Range Interpretation Comments Hgb (test code = Hgb) 15.6 14.0-18.0 [facility] HospitalBlvhiicDWTCXAZPFG9776-09-56 20:19:00 Test Item Value Reference Range Interpretation Comments Hct (test code = Hct) 48.0 42.0-54.0 [facility] Ho[id number] 20:19:00 Test Item Value Reference Range Interpretation Comments MCV (test code = MCV) 84.5 80.0-94.0 [facility] Hos[id number] 20:19:00 Test Item Value Reference Range Interpretation Comments MCH (test code = MCH) 27.4 pg 27.0-31.0 [place] 714272-10-07 20:19:00 Test Item Value Reference Range Interpretation Comments MCHC (test code = MCHC) 32.4 32.0-36.0 [facility] HospitalQpcigplDNBKBKZBTW6009-68-07 20:19:00 Test Item Value Reference Range Interpretation Comments RDW (test code = RDW) 14.8 11.5-14.5 [place] 714272-10-07 20:19:00 Test Item Value Reference Range Interpretation Comments Platelet (test code = Platelet) 207 133-450 [facility] Ho[id number] 20:19:00 Test Item Value Reference Range Interpretation Comments MPV (test code = MPV) 9.5 7.4-10.4 [place] 714272-10-07 20:19:00 Test Item Value Reference Range Interpretation Comments PT (test code = PT) 12.0 s 12.0-14.7 [facility] HospitalCvxshlbDBFPCPIHOE7391-70-86 20:19:00 Test Item Value Reference Range Interpretation Comments INR (test code = INR) 0.89 1 0.85-1.17 [place] 714272-10-07 20:19:00 Test Item Value Reference Range Interpretation Comments PTT (test code = PTT) 27.2 s 22.9-35.8 [place] 714272-10-07 20:19:00 Test Item Value Reference Range Interpretation Comments Segs (test code = Segs) 51.5 45.0-75.0 [facility] HospitalWpbauwxTWXIEAROOG8873-72-19 20:19:00 Test Item Value Reference Range Interpretation Comments Lymphocytes (test code = Lymphocytes) 38.1 20.0-40.0 [place] 714272-10-07 20:19:00 Test Item Value Reference Range Interpretation Comments Monocytes (test code = Monocytes) 6.0 2.0-12.0 [place] 714272-10-07 20:19:00 Test Item Value Reference Range Interpretation Comments Eosinophils (test code = 3.9 See_Comment [A utomated message] The Eosinophils) system which ge nerated this result tra nsmitted reference range : <=4.0. The reference r caleb was not used to int erpret this result as normal/abnormal . [place] 714272-10-07 20:19:00 Test Item Value Reference Range Interpretation Comments Basophils (test code = 0.5 See_Comment [Aut omated message] The Basophils) system which ge nerated this result tra nsmitted reference range : <=1.0. The reference r caleb was not used to int erpret this result as normal/abnormal . [facility] HospitalSqfnwuhOMFNBIYIQB8210-06-01 20:19:00 Test Item Value Reference Range Interpretation Comments Neutrophils # (test code = Neutrophils 4.3 1.5-8.1 #) [place] 714272-10-07 20:19:00 Test Item Value Reference Range Interpretation Comments Lymphocytes # (test code = Lymphocytes 3.2 1.0-5.5 #) [place] [address]-10-07 20:19:00 Test Item Value Reference Range Interpretation Comments Monocytes # (test code 0.5 See_Comment [Aut omated message] The = Monocytes #) system which generated this result tra nsmitted reference range : <=0.8. The reference r caleb was not used to int erpret this result as normal/abnormal . [facility] HospitalTquljhsDKNPSHQCQT0984-30-94 20:19:00 Test Item Value Reference Range Interpretation Comments Eosinophils # (test code 0.3 See_Comment [A utomated message] The = Eosinophils #) system whic h generated this result tra nsmitted reference range : <=0.5. The reference r caleb was not used to int erpret this result as normal/abnormal . [facility] America[facility] [id number] 20:19:00 Test Item Value Reference Range Interpretation Comments HS Troponin I (test code = HS Troponin 7 I) [facility] [id number] 20:19:00 Test Item Value Reference Range Interpretation Comments Glucose Lvl (test code = Glucose Lvl) 101 70-[address] [facility]2022-10-07 20:19:00 Test Item Value Reference Range Interpretation Comments BUN (test code = BUN) 17 7-[address] [facility]2022-10-07 20:19:00 Test Item Value Reference Range Interpretation Comments Creatinine Lvl (test code = Creatinine 1.36 0.50-1.40 Lvl) [facility]2022-10-07 20:19:00 Test Item Value Reference Range Interpretation Comments Sodium Lvl (test code = Sodium Lvl) 139 135-[address] [facility]2022-10-07 20:19:00 Test Item Value Reference Range Interpretation Comments Potassium Lvl (test code = Potassium 3.6 3.5-5.1 Lvl) [facility]2022-10-07 20:19:00 Test Item Value Reference Range Interpretation Comments Chloride Lvl (test code = Chloride Lvl) 106 95-[address] [facility]2022-10-07 20:19:00 Test Item Value Reference Range Interpretation Comments CO2 (test code = CO2) 25 24-[address] [facility]2022-10-07 20:19:00 Test Item Value Reference Range Interpretation Comments Calcium Lvl (test code = Calcium Lvl) 9.9 8.5-10.[address] [facility]2022-10-07 20:19:00 Test Item Value Reference Range Interpretation Comments AGAP (test code = AGAP) 11.6 10.0-20.[address] [facility]2022-10-07 20:19:00 Test Item Value Reference Range Interpretation Comments eGFR (test code = eGFR) [address] [facility]2022-10-07 20:19:00 Test Item Value Reference Range Interpretation Comments Lactic Acid Lvl (test code = Lactic 1.1 0.5-2.2 Acid Lvl) [facility] HospitalMcotfbeDRNJSOLRYF5766-84-67 20:19:00 Test Item Value Reference Range Interpretation Comments WBC (test code = WBC) 8.3 3.7-10.4 [facility] HospitalEsozgqhBTTUNGAUIT8726-10-04 20:19:00 Test Item Value Reference Range Interpretation Comments RBC (test code = RBC) 5.68 4.70-6.10 [facility] HospitalNieciezMLCXZTTTKQ5271-12-56 20:19:00 Test Item Value Reference Range Interpretation Comments Hgb (test code = Hgb) 15.6 14.0-18.0 [facility] HospitalUvpypjxPZCZCRIGGD2821-92-04 20:19:00 Test Item Value Reference Range Interpretation Comments Hct (test code = Hct) 48.0 42.0-54.0 [facility] HospitalEwqyialETEPHOJUNZ5751-87-59 20:19:00 Test Item Value Reference Range Interpretation Comments MCV (test code = MCV) 84.5 80.0-94.0 [facility] HospitalWekdryvTHFPKJAYXT4471-88-09 20:19:00 Test Item Value Reference Range Interpretation Comments MCH (test code = MCH) 27.4 pg 27.0-31.0 [facility] HospitalYxearzeLIOFBULZDM9364-44-53 20:19:00 Test Item Value Reference Range Interpretation Comments MCHC (test code = MCHC) 32.4 32.0-36.0 [facility] HospitalLrulbxlDCNBBCIAUP3676-50-83 20:19:00 Test Item Value Reference Range Interpretation Comments RDW (test code = RDW) 14.8 11.5-14.5 [facility] HospitalSompsniFCOCJHOBTL2078-13-66 20:19:00 Test Item Value Reference Range Interpretation Comments Platelet (test code = Platelet) 207 133-450 [facility] HospitalOnvsvhtLKTLGSASCP7816-98-04 20:19:00 Test Item Value Reference Range Interpretation Comments MPV (test code = MPV) 9.5 7.4-10.4 [facility] HospitalAxajivbBITCLXOXMI8291-60-82 20:19:00 Test Item Value Reference Range Interpretation Comments PT (test code = PT) 12.0 s 12.0-14.7 [facility] HospitalQokdijuPMHOXLXPPI4444-63-99 20:19:00 Test Item Value Reference Range Interpretation Comments INR (test code = INR) 0.89 1 0.85-1.17 [facility]ErnikynRZYKHSWVWW4977-70-31 20:19:00 Test Item Value Reference Range Interpretation Comments PTT (test code = PTT) 27.2 s 22.9-35.8 [facility] HospitalFiiqmkqFWMKOZDMBG5604-52-88 20:19:00 Test Item Value Reference Range Interpretation Comments Segs (test code = Segs) 51.5 45.0-75.0 [facility] HospitalUbgednxQUQRFUCIZC3766-44-93 20:19:00 Test Item Value Reference Range Interpretation Comments Lymphocytes (test code = Lymphocytes) 38.1 20.0-40.0 [facility] HospitalUgfbnfmHDJGSHDXVE1256-89-02 20:19:00 Test Item Value Reference Range Interpretation Comments Monocytes (test code = Monocytes) 6.0 2.0-12.0 [facility] HospitalLoscyfsCWOEGHCSRF8966-94-68 20:19:00 Test Item Value Reference Range Interpretation Comments Eosinophils (test code = Eosinophils) 3.9 <=4.0 [facility] HospitalCdsixvfMSSJUCUHKH9522-48-03 20:19:00 Test Item Value Reference Range Interpretation Comments Basophils (test code = Basophils) 0.5 <=1.0 [facility] HospitalWekoogeJXEUTNQLRZ1277-53-75 20:19:00 Test Item Value Reference Range Interpretation Comments Neutrophils # (test code = Neutrophils 4.3 1.5-8.1 #) [facility] HospitalUztnmwqHVZWNSKIIO2741-79-61 20:19:00 Test Item Value Reference Range Interpretation Comments Lymphocytes # (test code = Lymphocytes 3.2 1.0-5.5 #) [facility] HospitalLvovdxjEXXVIPMBOG3993-34-49 20:19:00 Test Item Value Reference Range Interpretation Comments Monocytes # (test code = Monocytes #) 0.5 <=0.8 [facility] HospitalRefelcmZXGUKSVFBT2299-53-31 20:19:00 Test Item Value Reference Range Interpretation Comments Eosinophils # (test code = Eosinophils 0.3 <=0.5 #) [facility] [id number] 05:26:00 Test Item Value Reference Range Interpretation Comments ABO/Rh (test code = ABO/Rh) O POS [facility] [id number] 05:26:00 Test Item Value Reference Range Interpretation Comments Antibody Scrn (test Negative (05/17/22 code = Antibody Scrn) 12:26 AM) [facility] [id number] 05:26:00 Test Item Value Reference Range Interpretation Comments Glucose Lvl (test code = Glucose Lvl) 94 70-99 [place] 999032-10-06 05:26:00 Test Item Value Reference Range Interpretation Comments BUN (test code = BUN) 17 7-22 [place] 999032-10-06 05:26:00 Test Item Value Reference Range Interpretation Comments Creatinine Lvl (test code = Creatinine 1.32 0.50-1.40 Lvl) [place] 999032-10-06 05:26:00 Test Item Value Reference Range Interpretation Comments Sodium Lvl (test code = Sodium Lvl) 140 135-145 [place] 999032-10-06 05:26:00 Test Item Value Reference Range Interpretation Comments Potassium Lvl (test code = Potassium 3.9 3.5-5.1 Lvl) [place] 999032-10-06 05:26:00 Test Item Value Reference Range Interpretation Comments Chloride Lvl (test code = Chloride Lvl) 108 95-109 [place] 999032-10-06 05:26:00 Test Item Value Reference Range Interpretation Comments CO2 (test code = CO2) 28 24-32 [place] 999032-10-06 05:26:00 Test Item Value Reference Range Interpretation Comments Calcium Lvl (test code = Calcium Lvl) 9.3 8.5-10.[address] [facility]2022-10-06 05:26:00 Test Item Value Reference Range Interpretation Comments AGAP (test code = AGAP) 7.9 10.0-20.0 [place] 999032-10-06 05:26:00 Test Item Value Reference Range Interpretation Comments eGFR (test code = eGFR) 69 [place] 714272-10-06 05:26:00 Test Item Value Reference Range Interpretation Comments Segs (test code = Segs) 46.4 45.0-75.0 [place] 714272-10-06 05:26:00 Test Item Value Reference Range Interpretation Comments Lymphocytes (test code = Lymphocytes) 43.4 20.0-40.0 [place] 714272-10-06 05:26:00 Test Item Value Reference Range Interpretation Comments Monocytes (test code = Monocytes) 7.2 2.0-12.0 [place] 714272-10-06 05:26:00 Test Item Value Reference Range Interpretation Comments Eosinophils (test code = 2.1 See_Comment [A utomated message] The Eosinophils) system which ge nerated this result tra nsmitted reference range : <=4.0. The reference r caleb was not used to int erpret this result as normal/abnormal . [place] 714272-10-06 05:26:00 Test Item Value Reference Range Interpretation Comments Basophils (test code = 0.9 See_Comment [Aut omated message] The Basophils) system which ge nerated this result tra nsmitted reference range : <=1.0. The reference r caleb was not used to int erpret this result as normal/abnormal . [place] 714272-10-06 05:26:00 Test Item Value Reference Range Interpretation Comments Neutrophils # (test code = Neutrophils 3.9 1.5-8.1 #) [place] 714272-10-06 05:26:00 Test Item Value Reference Range Interpretation Comments Lymphocytes # (test code = Lymphocytes 3.7 1.0-5.5 #) [place] [address]-10-06 05:26:00 Test Item Value Reference Range Interpretation Comments Monocytes # (test code 0.6 See_Comment [Aut omated message] The = Monocytes #) system which generated this result tra nsmitted reference range : <=0.8. The reference r claeb was not used to int erpret this result as normal/abnormal . [place] 714272-10-06 05:26:00 Test Item Value Reference Range Interpretation Comments Eosinophils # (test code 0.2 See_Comment [A utomated message] The = Eosinophils #) system [facility] h generated this result tra nsmitted reference range : <=0.5. The reference r caleb was not used to int erpret this result as normal/abnormal . [place] 714272-10-06 05:26:00 Test Item Value Reference Range Interpretation Comments Basophils # (test code 0.1 See_Comment [Aut omated message] The = Basophils #) system which generated this result tra nsmitted reference range : <=0.2. The reference r caleb was not used to int erpret this result as normal/abnormal . [place] 714272-10-06 05:26:00 Test Item Value Reference Range Interpretation Comments WBC (test code = WBC) 8.4 3.7-10.4 [facility] HospitalJyixqguRXYNULGRCY4178-07-00 05:26:00 Test Item Value Reference Range Interpretation Comments RBC (test code = RBC) 4.95 4.70-6.10 [place] 714272-10-06 05:26:00 Test Item Value Reference Range Interpretation Comments Hgb (test code = Hgb) 13.7 14.0-18.0 [place] 714272-10-06 05:26:00 Test Item Value Reference Range Interpretation Comments Hct (test code = Hct) 41.5 42.0-54.0 [place] 714272-10-06 05:26:00 Test Item Value Reference Range Interpretation Comments MCV (test code = MCV) 83.7 80.0-94.0 [place] 714272-10-06 05:26:00 Test Item Value Reference Range Interpretation Comments MCH (test code = MCH) 27.6 pg 27.0-31.0 [facility] HospitalZcqvmlzZUNZUSXMZC4279-83-35 05:26:00 Test Item Value Reference Range Interpretation Comments MCHC (test code = MCHC) 33.0 32.0-36.0 [facility] HospitalCktsbljCBODILAYUH5554-29-82 05:26:00 Test Item Value Reference Range Interpretation Comments RDW (test code = RDW) 14.6 11.5-14.5 [facility] HospitalWdjxkacQARLOOQYUO1232-97-67 05:26:00 Test Item Value Reference Range Interpretation Comments Platelet (test code = Platelet) 187 133-450 [facility] HospitalBapitebMJWCIRICHL4179-94-81 05:26:00 Test Item Value Reference Range Interpretation Comments MPV (test code = MPV) 9.7 7.4-10.4 [facility] HospitalSydllobJYIHOGQFPR3380-18-03 05:26:00 Test Item Value Reference Range Interpretation Comments PTT (test code = PTT) 25.7 s 22.9-35.8 [facility] HospitalDxuqswiNXWXBMLYAY1632-20-80 05:26:00 Test Item Value Reference Range Interpretation Comments PT (test code = PT) 11.9 s 12.0-14.7 [place] 714272-10-06 05:26:00 Test Item Value Reference Range Interpretation Comments INR (test code = INR) 0.88 1 0.85-1.17 [place] [address]-10-06 05:26:00 Test Item Value Reference Range Interpretation Comments TEG Interp (test Thromboelastograph results code = TEG show shortened value of R. Interp) This finding is suggestive of enzymatic hypercoagulation. CPT:04248 [place] [address]-10-06 05:26:00 Test Item Value Reference Range Interpretation Comments R-time (test code = R-time) 4.5 min 5.0-10.0 [place] 714272-10-06 05:26:00 Test Item Value Reference Range Interpretation Comments K-time (test code = K-time) 1.2 min 1.0-3.0 [place] [address]-10-06 05:26:00 Test Item Value Reference Range Interpretation Comments Angle (test code = Angle) 71.2 degrees 53.0-72.0 [place] [address]-10-06 05:26:00 Test Item Value Reference Range Interpretation Comments Max Amp (test code = Max Amp) 61.8 mm 50.0-70.0 [place] [address]-10-06 05:26:00 Test Item Value Reference Range Interpretation Comments G-value (test code = G-value) 8.1 4.5-11.0 [place] [address]-10-06 05:26:00 Test Item Value Reference Range Interpretation Comments Ly30 (test code = 0.3 See_Comment [Automate d message] The Ly30) system which ge nerated this result transmit leydi reference range : <=7.5. The reference range was not used to interpr et this result as krishna l/abnormal. [place] [address]-10-06 05:26:00 Test Item Value Reference Range Interpretation Comments Coag Index (test code 1.8 1 See_Comment [Auto mated message] The = Coag Index) system which g enerated this result transmit leydi reference range : <=3.0. The reference range was not used to interpr et this result as krishna l/abnormal. [place] [address]-10-06 05:26:00 Test Item Value Reference Range Interpretation Comments TEG Data (test code = See Note (05/17/22 12:26 TEG Data) AM) [facility] LXBDPMF3214-44-26 05:26:00 Test Item Value Reference Range Interpretation Comments ABO/Rh (test code = ABO/Rh) O POS [facility] MBIJQUW6996-13-92 05:26:00 Test Item Value Reference Range Interpretation Comments Antibody Scrn (test Negative (05/17/22 code = Antibody Scrn) 12:26 AM) [facility] [id number] 05:26:00 Test Item Value Reference Range Interpretation Comments Glucose Lvl (test code = Glucose Lvl) 94 70-[address] [facility]2022-10-06 05:26:00 Test Item Value Reference Range Interpretation Comments BUN (test code = BUN) 17 7-[address] [facility]2022-10-06 05:26:00 Test Item Value Reference Range Interpretation Comments Creatinine Lvl (test code = Creatinine 1.32 0.50-1.40 Lvl) [facility] AZEEC2414-02-78 05:26:00 Test Item Value Reference Range Interpretation Comments Sodium Lvl (test code = Sodium Lvl) 140 135-145 [facility] BJCAY6907-62-94 05:26:00 Test Item Value Reference Range Interpretation Comments Potassium Lvl (test code = Potassium 3.9 3.5-5.1 Lvl) [facility] XINVV4852-74-89 05:26:00 Test Item Value Reference Range Interpretation Comments Chloride Lvl (test code = Chloride Lvl) 108 95-109 [facility] HUFNH9368-01-86 05:26:00 Test Item Value Reference Range Interpretation Comments CO2 (test code = CO2) 28 24-32 [facility] LBXBF0303-57-86 05:26:00 Test Item Value Reference Range Interpretation Comments Calcium Lvl (test code = Calcium Lvl) 9.3 8.5-10.5 [facility] OWTWE2046-73-61 05:26:00 Test Item Value Reference Range Interpretation Comments AGAP (test code = AGAP) 7.9 10.0-20.0 [facility] APXPX9752-74-24 05:26:00 Test Item Value Reference Range Interpretation Comments eGFR (test code = eGFR) 69 [facility] HospitalPfkazzoFQXCSVKOLV2699-80-71 05:26:00 Test Item Value Reference Range Interpretation Comments Segs (test code = Segs) 46.4 45.0-75.0 [facility] HospitalQxrfwwsBOTLBCYCCO6599-64-13 05:26:00 Test Item Value Reference Range Interpretation Comments Lymphocytes (test code = Lymphocytes) 43.4 20.0-40.0 [facility] HospitalFegusgcUPDSLNZETB3220-90-79 05:26:00 Test Item Value Reference Range Interpretation Comments Monocytes (test code = Monocytes) 7.2 2.0-12.0 [facility] HospitalJyigqgvFHLFMHRUOV5830-09-33 05:26:00 Test Item Value Reference Range Interpretation Comments Eosinophils (test code = Eosinophils) 2.1 <=4.0 [facility] HospitalBniqfhrPOAYIDZTZC8032-88-03 05:26:00 Test Item Value Reference Range Interpretation Comments Basophils (test code = Basophils) 0.9 <=1.0 [facility] HospitalQuuvkegINSEYWLTSA0479-60-01 05:26:00 Test Item Value Reference Range Interpretation Comments Neutrophils # (test code = Neutrophils 3.9 1.5-8.1 #) [facility] HospitalNglrhdgOSQRMKBAZZ3931-40-82 05:26:00 Test Item Value Reference Range Interpretation Comments Lymphocytes # (test code = Lymphocytes 3.7 1.0-5.5 #) [facility] HospitalCebdonpNEZCOUVHHT6661-26-91 05:26:00 Test Item Value Reference Range Interpretation Comments Monocytes # (test code = Monocytes #) 0.6 <=0.8 [facility] HospitalMvtywltYNDOGILFUL4017-57-55 05:26:00 Test Item Value Reference Range Interpretation Comments Eosinophils # (test code = Eosinophils 0.2 <=0.5 #) [facility] HospitalVtlixdqTNHUQESQLX3727-76-04 05:26:00 Test Item Value Reference Range Interpretation Comments Basophils # (test code = Basophils #) 0.1 <=0.2 [place] 714272-10-06 05:26:00 Test Item Value Reference Range Interpretation Comments WBC (test code = WBC) 8.4 3.7-10.4 [place] 714272-10-06 05:26:00 Test Item Value Reference Range Interpretation Comments RBC (test code = RBC) 4.95 4.70-6.10 [facility] HospitalMvnqhvkSBVMLCMCFW7356-48-58 05:26:00 Test Item Value Reference Range Interpretation Comments Hgb (test code = Hgb) 13.7 14.0-18.0 [place] 714272-10-06 05:26:00 Test Item Value Reference Range Interpretation Comments Hct (test code = Hct) 41.5 42.0-54.0 [place] 714272-10-06 05:26:00 Test Item Value Reference Range Interpretation Comments MCV (test code = MCV) 83.7 80.0-94.0 [place] 714272-10-06 05:26:00 Test Item Value Reference Range Interpretation Comments MCH (test code = MCH) 27.6 pg 27.0-31.0 [facility] HospitalShaoqtbNGJJJVDPLG9877-38-21 05:26:00 Test Item Value Reference Range Interpretation Comments MCHC (test code = MCHC) 33.0 32.0-36.0 [facility] HospitalGlzeinvUQPAQGHLYO4360-05-67 05:26:00 Test Item Value Reference Range Interpretation Comments RDW (test code = RDW) 14.6 11.5-14.5 [place] 714272-10-06 05:26:00 Test Item Value Reference Range Interpretation Comments Platelet (test code = Platelet) 187 133-450 [facility] HospitalAwsqqrqTWTERIZWCJ4078-38-51 05:26:00 Test Item Value Reference Range Interpretation Comments MPV (test code = MPV) 9.7 7.4-10.4 [place] [address]-10-06 05:26:00 Test Item Value Reference Range Interpretation Comments PTT (test code = PTT) 25.7 s 22.9-35.8 [place] 714272-10-06 05:26:00 Test Item Value Reference Range Interpretation Comments PT (test code = PT) 11.9 s 12.0-14.7 [place] 714272-10-06 05:26:00 Test Item Value Reference Range Interpretation Comments INR (test code = INR) 0.88 1 0.85-1.17 [place] [address]-10-06 05:26:00 Test Item Value Reference Range Interpretation Comments TEG Interp (test Thromboelastograph results code = TEG show shortened value of R. Interp) This finding is suggestive of enzymatic hypercoagulation. CPT:14770 [facility] HospitalUalthizZPRILLWTTW1134-18-49 05:26:00 Test Item Value Reference Range Interpretation Comments R-time (test code = R-time) 4.5 min 5.0-10.0 [facility] HospitalSvdjlpqUPEHTBQOZW6367-69-34 05:26:00 Test Item Value Reference Range Interpretation Comments K-time (test code = K-time) 1.2 min 1.0-3.0 [facility] HospitalMmwddfvFEVAPGNJLW0686-62-11 05:26:00 Test Item Value Reference Range Interpretation Comments Angle (test code = Angle) 71.2 degrees 53.0-72.0 [facility] HospitalFatkasbKHLWEAXBBW7490-83-22 05:26:00 Test Item Value Reference Range Interpretation Comments Max Amp (test code = Max Amp) 61.8 mm 50.0-70.0 [facility] HospitalDtqidbhWKWYEIUIFD3448-92-87 05:26:00 Test Item Value Reference Range Interpretation Comments G-value (test code = G-value) 8.1 4.5-11.0 [facility] HospitalBkxfovtWLLGMMYRDU6929-22-44 05:26:00 Test Item Value Reference Range Interpretation Comments Ly30 (test code = Ly30) 0.3 <=7.5 [place] 714272-10-06 05:26:00 Test Item Value Reference Range Interpretation Comments Coag Index (test code = Coag Index) 1.8 1 <=3.0 [place] 714272-10-06 05:26:00 Test Item Value Reference Range Interpretation Comments TEG Data (test code = See Note (05/17/22 12:26 TEG Data) AM) [facility]vgjtmyZRIDIMNSDJ7287-95-20 03:56:00 Test Item Value Reference Range Interpretation Comments Coronavirus (COVID-19) Not Detected (05/16/22 LIZBETH (test code = 10:56 PM) Coronavirus (COVID-19) LIZBETH) [facility] CenterMluojkoHSBEDJZFAR0592-78-91 03:56:00 Test Item Value Reference Range Interpretation Comments Coronavirus (COVID-19) Not Detected (05/16/22 LIZBETH (test code = 10:56 PM) Coronavirus (COVID-19) LIZBETH) [facility] HospitalHafhwzcSQWMWRAIMQ1190-11-27 23:51:55 Test Item Value Reference Range Interpretation Comments WBC X 10x3 (test code = WBC X 10x3) 9.1 3.7-10.4 [facility] HospitalLmgzvhlMGAIPDZXHE4511-21-25 23:51:55 Test Item Value Reference Range Interpretation Comments RBC X 10x6 (test code = RBC X 10x6) 4.96 4.70-6.10 [place] 714272-10-05 23:51:55 Test Item Value Reference Range Interpretation Comments Hgb (test code = Hgb) 13.7 14.0-18.0 [place] 714272-10-05 23:51:55 Test Item Value Reference Range Interpretation Comments Hct (test code = Hct) 42.3 42.0-54.0 [facility] HospitalXkitcjwPYQNROKTDU7863-59-47 23:51:55 Test Item Value Reference Range Interpretation Comments MCV (test code = MCV) 85.3 80.0-94.0 [facility] HospitalHrwgbwpREQWQVDAKV8210-79-58 23:51:55 Test Item Value Reference Range Interpretation Comments MCH (test code = MCH) 27.6 pg 27.0-31.0 [place] 714272-10-05 23:51:55 Test Item Value Reference Range Interpretation Comments MCHC (test code = MCHC) 32.4 32.0-36.0 [place] 714272-10-05 23:51:55 Test Item Value Reference Range Interpretation Comments RDW (test code = RDW) 14.7 11.5-14.5 [place] 714272-10-05 23:51:55 Test Item Value Reference Range Interpretation Comments Platelet (test code = Platelet) 183 133-450 [facility] HospitalSannzsiKPBFMBCYZS0858-54-76 23:51:55 Test Item Value Reference Range Interpretation Comments MPV (test code = MPV) 9.2 7.4-10.4 [place] 714272-10-05 23:51:55 Test Item Value Reference Range Interpretation Comments Segs (test code = Segs) 56.1 45.0-75.0 [place] 714272-10-05 23:51:55 Test Item Value Reference Range Interpretation Comments Lymphocytes (test code = Lymphocytes) 35.0 20.0-40.0 [place] [address]-10-05 23:51:55 Test Item Value Reference Range Interpretation Comments Monocytes (test code = Monocytes) 6.5 2.0-12.0 [place] 714272-10-05 23:51:55 Test Item Value Reference Range Interpretation Comments Eosinophils (test code = 1.8 See_Comment [A utomated message] The Eosinophils) system which ge nerated this result tra nsmitted reference range : <=4.0. The reference r caleb was not used to int erpret this result as normal/abnormal . [facility] HospitalQhmbdgsWRHCORQXCI9051-53-90 23:51:55 Test Item Value Reference Range Interpretation Comments Basophils (test code = 0.6 See_Comment [Aut omated message] The Basophils) system which ge nerated this result tra nsmitted reference range : <=1.0. The reference r caleb was not used to int erpret this result as normal/abnormal . [facility] HospitalWjfvjmlHKBDZNPDKU5447-54-37 23:51:55 Test Item Value Reference Range Interpretation Comments Neutrophils # (test code = Neutrophils 5.1 1.5-8.1 #) [facility] HospitalSejpwwlCGUZXBUPMJ9318-65-28 23:51:55 Test Item Value Reference Range Interpretation Comments Lymphocytes # (test code = Lymphocytes 3.2 1.0-5.5 #) [place] 714272-10-05 23:51:55 Test Item Value Reference Range Interpretation Comments Monocytes # (test code 0.6 See_Comment [Aut omated message] The = Monocytes #) system which generated this result tra nsmitted reference range : <=0.8. The reference r caleb was not used to int erpret this result as normal/abnormal . [facility] HospitalOirbdqnETZPRQVDKN5630-43-04 23:51:55 Test Item Value Reference Range Interpretation Comments Eosinophils # (test code 0.2 See_Comment [A utomated message] The = Eosinophils #) system ic h generated this result tra nsmitted reference range : <=0.5. The reference r caleb was not used to int erpret this result as normal/abnormal . [facility] HospitalZtexyjbIVRVIYZYXO5058-34-47 23:51:55 Test Item Value Reference Range Interpretation Comments WBC X 10x3 (test code = WBC X 10x3) 9.1 3.7-10.4 [place] 714272-10-05 23:51:55 Test Item Value Reference Range Interpretation Comments RBC X 10x6 (test code = RBC X 10x6) 4.96 4.70-6.10 [facility] HospitalClimtblRQJWQEPSIZ9900-90-21 23:51:55 Test Item Value Reference Range Interpretation Comments Hgb (test code = Hgb) 13.7 14.0-18.0 [facility] HospitalTznrehdDENRNYYFFE0878-13-44 23:51:55 Test Item Value Reference Range Interpretation Comments Hct (test code = Hct) 42.3 42.0-54.0 [facility] HospitalNefemmhMVYQFPRTOL6063-05-14 23:51:55 Test Item Value Reference Range Interpretation Comments MCV (test code = MCV) 85.3 80.0-94.0 [place] 714272-10-05 23:51:55 Test Item Value Reference Range Interpretation Comments MCH (test code = MCH) 27.6 pg 27.0-31.0 [facility] HospitalBpdyxfuSDLDIUXHHE7540-65-21 23:51:55 Test Item Value Reference Range Interpretation Comments MCHC (test code = MCHC) 32.4 32.0-36.0 [facility] HospitalInfveuwJURTZJFTTL8191-10-12 23:51:55 Test Item Value Reference Range Interpretation Comments RDW (test code = RDW) 14.7 11.5-14.5 [facility] HospitalYrpdkmwWCGPKGJWDI3897-75-60 23:51:55 Test Item Value Reference Range Interpretation Comments Platelet (test code = Platelet) 183 133-450 [facility] HospitalWdicalqFOHYGIFBKR3015-27-46 23:51:55 Test Item Value Reference Range Interpretation Comments MPV (test code = MPV) 9.2 7.4-10.4 [facility] HospitalMsqgznmNDDJTSFFIM5399-33-91 23:51:55 Test Item Value Reference Range Interpretation Comments Segs (test code = Segs) 56.1 45.0-75.0 [facility] HospitalOhawpgvAQVKCTBWPZ5710-18-29 23:51:55 Test Item Value Reference Range Interpretation Comments Lymphocytes (test code = Lymphocytes) 35.0 20.0-40.0 [place] [address]-10-05 23:51:55 Test Item Value Reference Range Interpretation Comments Monocytes (test code = Monocytes) 6.5 2.0-12.0 [place] 714272-10-05 23:51:55 Test Item Value Reference Range Interpretation Comments Eosinophils (test code = Eosinophils) 1.8 <=4.0 [place] 714272-10-05 23:51:55 Test Item Value Reference Range Interpretation Comments Basophils (test code = Basophils) 0.6 <=1.0 [place] 714272-10-05 23:51:55 Test Item Value Reference Range Interpretation Comments Neutrophils # (test code = Neutrophils 5.1 1.5-8.1 #) [facility] HospitalHgyaecrPVKDKZTBHS0989-18-68 23:51:55 Test Item Value Reference Range Interpretation Comments Lymphocytes # (test code = Lymphocytes 3.2 1.0-5.5 #) [facility] HospitalWaiavgzWBEQQLQBJS0099-33-17 23:51:55 Test Item Value Reference Range Interpretation Comments Monocytes # (test code = Monocytes #) 0.6 <=0.8 [place] 714272-10-05 23:51:55 Test Item Value Reference Range Interpretation Comments Eosinophils # (test code = Eosinophils 0.2 <=0.5 #) [facility] NUJYFHIW4910-12-24 17:30:00 Test Item Value Reference Range Interpretation Comments Source Strep (test code Cerebral Spinal Fluid = Source Strep) [facility]ENTERJKKVTPUH6726-72-86 17:30:00 Test Item Value Reference Range Interpretation Comments Strep pneumoniae Ag Negative (05/12/22 (test code = Strep 12:30 PM) pneumoniae Ag) [facility]2022-10-01 17:30:00 Test Item Value Reference Range Interpretation Comments Tube Num CSF (test code = Tube Num CSF) 1 1 [facility]2022-10-01 17:30:00 Test Item Value Reference Range Interpretation Comments Color CSF (test code Colorless (05/12/22 12:30 = Color CSF) PM) [facility] [facility]2022-10-01 17:30:00 Test Item Value Reference Range Interpretation Comments Clarity CSF (test code = Clear (05/12/22 12:30 Clarity CSF) PM) [facility]2022-10-01 17:30:00 Test Item Value Reference Range Interpretation Comments Supernat CSF (test Colorless (05/12/22 code = Supernat CSF) 12:30 PM) [facility]2022-10-01 17:30:00 Test Item Value Reference Range Interpretation Comments Nucleated Cells CSF 4 See_Comment [Automa leydi message] The (test code = Nucleated syste m which generated Cells CSF) this result tra nsmitted reference range : <=53. The reference r caleb was not used to int erpret this result as normal/abnormal . [facility]2022-10-01 17:30:00 Test Item Value Reference Range Interpretation Comments RBC CSF (test code = 1 See_Comment [Autom ated message] The RBC CSF) system which ge nerated this result transmit leydi reference range : <=03. The reference range was not used to interpr et this result as krishna l/abnormal. [facility] [id number] 17:30:00 Test Item Value Reference Range Interpretation Comments Comment CSF (test Differential not code = Comment CSF) performed on WBC count of less than 5. [facility] [id number] 17:30:00 Test Item Value Reference Range Interpretation Comments Glucose CSF (test code = Glucose CSF) 71 45-80 [facility] [id number] 17:30:00 Test Item Value Reference Range Interpretation Comments Protein CSF (test code = Protein CSF) 195 15-45 [facility] [id number] 17:30:00 Test Item Value Reference Range Interpretation Comments Gram Stain Report Gram Stain Performed By: (test code = [facility] w/Gram [id number] 17:30:00 Test Item Value Reference Range Interpretation Comments Culture: CSF w/Gram 48 Hour Report - No Stain (test code = Growth, Holding Culture: CSF w/Gram Stain) [facility] America[facility] - [id number] 17:30:00 Test Item Value Reference Range Interpretation Comments Source Strep (test code Cerebral Spinal Fluid = Source Strep) [facility] - [id number] 17:30:00 Test Item Value Reference Range Interpretation Comments Strep pneumoniae Ag Negative (05/12/22 (test code = Strep 12:30 PM) pneumoniae Ag) [facility] [id number] 17:30:00 Test Item Value Reference Range Interpretation Comments Tube Num CSF (test code = Tube Num CSF) 1 1 [facility] [id number] 17:30:00 Test Item Value Reference Range Interpretation Comments Color CSF (test code Colorless (05/12/22 12:30 = Color CSF) PM) [facility] [id number] 17:30:00 Test Item Value Reference Range Interpretation Comments Clarity CSF (test code = Clear (05/12/22 12:30 Clarity CSF) PM) [facility] [id number] 17:30:00 Test Item Value Reference Range Interpretation Comments Supernat CSF (test Colorless (05/12/22 code = Supernat CSF) 12:30 PM) [facility] [id number] 17:30:00 Test Item Value Reference Range Interpretation Comments Nucleated Cells CSF (test code = 4 <=53 Nucleated Cells CSF) [facility] America[facility] [place] [id number] 17:30:00 Test Item Value Reference Range Interpretation Comments RBC CSF (test code = RBC CSF) 1 <=03 [facility] CenterWyzeTalkVUXUHJ6868-27-25 17:30:00 Test Item Value Reference Range Interpretation Comments Comment CSF (test Differential not code = Comment CSF) performed on WBC count of less than 5. [facility] [id number] 17:30:00 Test Item Value Reference Range Interpretation Comments Glucose CSF (test code = Glucose CSF) 71 45-80 [facility] [place] [id number] 17:30:00 Test Item Value Reference Range Interpretation Comments Protein CSF (test code = Protein CSF) 195 15-45 [facility] [id number] 17:30:00 Test Item Value Reference Range Interpretation Comments Gram Stain Report Gram Stain Performed By: (test code = [facility]) [facility] CSF w/Gram [id number] 17:30:00 Test Item Value Reference Range Interpretation Comments Culture: CSF w/Gram 48 Hour Report - No Stain (test code = Growth, Holding Culture: CSF w/Gram Stain) [facility] [employer] [id number] 10:41:00 Test Item Value Reference Range Interpretation Comments Glucose Lvl (test code = Glucose Lvl) 149 70-[address] [facility] [employer] [id number] 10:41:00 Test Item Value Reference Range Interpretation Comments BUN (test code = BUN) 12 7-[address] [facility] [employer] [id number] 10:41:00 Test Item Value Reference Range Interpretation Comments Creatinine Lvl (test code = Creatinine 1.37 0.50-1.40 Lvl) [facility] [employer] [id number] 10:41:00 Test Item Value Reference Range Interpretation Comments Sodium Lvl (test code = Sodium Lvl) 142 135-[address] [facility] [employer] [id number] 10:41:00 Test Item Value Reference Range Interpretation Comments Potassium Lvl (test code = Potassium 3.9 3.5-5.1 Lvl) [facility]2022-10-01 10:41:00 Test Item Value Reference Range Interpretation Comments Chloride Lvl (test code = Chloride Lvl) 110 95-[address] [facility]2022-10-01 10:41:00 Test Item Value Reference Range Interpretation Comments CO2 (test code = CO2) 26 24-[address] [facility]2022-10-01 10:41:00 Test Item Value Reference Range Interpretation Comments Calcium Lvl (test code = Calcium Lvl) 9.3 8.5-10.[address] [facility]2022-10-01 10:41:00 Test Item Value Reference Range Interpretation Comments AGAP (test code = AGAP) 9.9 10.0-20.[address] [facility]2022-10-01 10:41:00 Test Item Value Reference Range Interpretation Comments eGFR (test code = eGFR) [address] [facility]2022-10-01 10:41:00 Test Item Value Reference Range Interpretation Comments Total Protein (test code = Total 7.2 6.4-8.4 Protein) [facility]2022-10-01 10:41:00 Test Item Value Reference Range Interpretation Comments Albumin Lvl (test code = Albumin Lvl) 3.5 3.5-5.[address] [facility]2022-10-01 10:41:00 Test Item Value Reference Range Interpretation Comments Globulin (test code = Globulin) 3.7 2.7-4.[address] [facility]2022-10-01 10:41:00 Test Item Value Reference Range Interpretation Comments A/G Ratio (test code = A/G Ratio) 0.9 1 0.7-1.[address] [facility]2022-10-01 10:41:00 Test Item Value Reference Range Interpretation Comments ALANINE AMINOTRANSFERASE 32 See_Comment [A utomated message] (test code = ALANINE The sys tem which AMINOTRANSFERASE) generated this result transmitted ref erence range: <=65. Th e reference range was not used to int erpret this result as normal/abnormal . [facility]2022-10-01 10:41:00 Test Item Value Reference Range Interpretation Comments AST (test code = AST) 14 See_Comment [Auto mated message] The system which ge nerated this result transmit leydi reference range : <=37. The reference range was not used to interpr et this result as krishna l/abnormal. [facility]2022-10-01 10:41:00 Test Item Value Reference Range Interpretation Comments Alk Phos (test code = Alk Phos) 110 39-136 [place] 999032-10-01 10:41:00 Test Item Value Reference Range Interpretation Comments Bili Total (test code = Bili Total) 0.3 0.2-1.3 [place] [address]-10-01 10:41:00 Test Item Value Reference Range Interpretation Comments Bili Direct (test code no gt See_Comment [Aut omated message] The = Bili Direct) system which generated this result tra nsmitted reference range : <=0.3. The reference r caleb was not used to int erpret this result as krishna l/abnormal. [facility]2022-10-01 10:41:00 Test Item Value Reference Range Interpretation Comments Bili Indirect Unable to See_Comment [Automated (test code = Bili Calculate message] T he system Indirect) which generated this result transmitted reference range : <=1.0. The reference range was not used to interpret this result as normal/abnormal . [facility]Xd[facility]xwfOIYZLZDILQ7137-12-[facility] 10:41:00 Test Item Value Reference Range Interpretation Comments WBC X 10x3 (test code = WBC X 10x3) 13.2 3.7-10.4 [place] [address]-10-01 10:41:00 Test Item Value Reference Range Interpretation Comments RBC X 10x6 (test code = RBC X 10x6) 4.65 4.70-6.10 [place] [address]-10-01 10:41:00 Test Item Value Reference Range Interpretation Comments Hgb (test code = Hgb) 12.7 14.0-18.0 [place] [address]-10-01 10:41:00 Test Item Value Reference Range Interpretation Comments Hct (test code = Hct) 39.8 42.0-54.0 [place] [address]-10-01 10:41:00 Test Item Value Reference Range Interpretation Comments MCV (test code = MCV) 85.5 80.0-94.0 [place] 714272-10-01 10:41:00 Test Item Value Reference Range Interpretation Comments MCH (test code = MCH) 27.4 pg 27.0-31.0 [facility] H[id number] 10:41:00 Test Item Value Reference Range Interpretation Comments MCHC (test code = MCHC) 32.0 32.0-36.0 [facility] Hos[id number] 10:41:00 Test Item Value Reference Range Interpretation Comments RDW (test code = RDW) 14.6 11.5-14.5 [place] 714272-10-01 10:41:00 Test Item Value Reference Range Interpretation Comments Platelet (test code = Platelet) 217 133-450 [facility] HospitalImbwcmqYFTIWCYLPZ3263-82-13 10:41:00 Test Item Value Reference Range Interpretation Comments MPV (test code = MPV) 9.4 7.4-10.4 [place] 714272-10-01 10:41:00 Test Item Value Reference Range Interpretation Comments PT (test code = PT) 12.4 s 12.0-14.7 [place] 714272-10-01 10:41:00 Test Item Value Reference Range Interpretation Comments INR (test code = INR) 0.93 1 0.85-1.17 [place] 714272-10-01 10:41:00 Test Item Value Reference Range Interpretation Comments PTT (test code = PTT) 27.5 s 22.9-35.8 [place] 714272-10-01 10:41:00 Test Item Value Reference Range Interpretation Comments Segs (test code = Segs) 80.2 45.0-75.0 [place] 714272-10-01 10:41:00 Test Item Value Reference Range Interpretation Comments Lymphocytes (test code = Lymphocytes) 14.3 20.0-40.0 [place] 714272-10-01 10:41:00 Test Item Value Reference Range Interpretation Comments Monocytes (test code = Monocytes) 4.8 2.0-12.0 [place] 714272-10-01 10:41:00 Test Item Value Reference Range Interpretation Comments Eosinophils (test code = 0.4 See_Comment [A utomated message] The Eosinophils) system which ge nerated this result tra nsmitted reference range : <=4.0. The reference r caleb was not used to int erpret this result as normal/abnormal . [facility] Hos[id number] 10:41:00 Test Item Value Reference Range Interpretation Comments Basophils (test code = 0.3 See_Comment [Aut omated message] The Basophils) system which ge nerated this result tra nsmitted reference range : <=1.0. The reference r caleb was not used to int erpret this result as normal/abnormal . [facility] HospitalVvwnmesYAYUFFQAGP7375-69-91 10:41:00 Test Item Value Reference Range Interpretation Comments Neutrophils # (test code = Neutrophils 10.6 1.5-8.1 #) [facility] HospitalSjchzevFGNUUFWLQG8624-65-55 10:41:00 Test Item Value Reference Range Interpretation Comments Lymphocytes # (test code = Lymphocytes 1.9 1.0-5.5 #) [facility] HospitalAnvoupnQYVIOTKMKT7647-12-43 10:41:00 Test Item Value Reference Range Interpretation Comments Monocytes # (test code 0.6 See_Comment [Aut omated message] The = Monocytes #) system which generated this result tra nsmitted reference range : <=0.8. The reference r caleb was not used to int erpret this result as normal/abnormal . [facility] HospitalWkmotizXVIRDULOIA1943-06-75 10:41:00 Test Item Value Reference Range Interpretation Comments Eosinophils # (test code 0.1 See_Comment [A utomated message] The = Eosinophils #) system whic h generated this result tra nsmitted reference range : <=0.5. The reference r caleb was not used to int erpret this result as normal/abnormal . [facility] AmericaPnwrsiuUOWMAIWFEP0138-53-57 10:41:00 Test Item Value Reference Range Interpretation Comments Hep C Ab (test code = Hep C Ab) NON-REACTIVE [facility] AmericaTcrqjumAKCYUJIUEA9591-66-50 10:41:00 Test Item Value Reference Range Interpretation Comments Hep Signal to Cut-Off (test code = Hep 0.07 1 Signal to Cut-Off) [facility] AmericaWljlohjXKHHMONJNX0464-31-25 10:41:00 Test Item Value Reference Range Interpretation Comments FORMERLY NAMED [facility] HIV 4th GEN (test Negative *NA*(05/12/22 code = CDC HIV 4th 5:41 AM) GEN) [facility]2022-10-01 10:41:00 Test Item Value Reference Range Interpretation Comments Glucose Lvl (test code = Glucose Lvl) 149 70-[address] [facility]2022-10-01 10:41:00 Test Item Value Reference Range Interpretation Comments BUN (test code = BUN) 12 7-22 [place] 999032-10-01 10:41:00 Test Item Value Reference Range Interpretation Comments Creatinine Lvl (test code = Creatinine 1.37 0.50-1.40 Lvl) [facility]2022-10-01 10:41:00 Test Item Value Reference Range Interpretation Comments Sodium Lvl (test code = Sodium Lvl) 142 135-145 [place] 999032-10-01 10:41:00 Test Item Value Reference Range Interpretation Comments Potassium Lvl (test code = Potassium 3.9 3.5-5.1 Lvl) [facility]2022-10-01 10:41:00 Test Item Value Reference Range Interpretation Comments Chloride Lvl (test code = Chloride Lvl) 110 95-[address] [facility]2022-10-01 10:41:00 Test Item Value Reference Range Interpretation Comments CO2 (test code = CO2) 26 24-[address] [facility]2022-10-01 10:41:00 Test Item Value Reference Range Interpretation Comments Calcium Lvl (test code = Calcium Lvl) 9.3 8.5-10.[address] [facility]2022-10-01 10:41:00 Test Item Value Reference Range Interpretation Comments AGAP (test code = AGAP) 9.9 10.0-20.[address] [facility]2022-10-01 10:41:00 Test Item Value Reference Range Interpretation Comments eGFR (test code = eGFR) [address] [facility]2022-10-01 10:41:00 Test Item Value Reference Range Interpretation Comments Total Protein (test code = Total 7.2 6.4-8.4 Protein) [facility]2022-10-01 10:41:00 Test Item Value Reference Range Interpretation Comments Albumin Lvl (test code = Albumin Lvl) 3.5 3.5-5.0 [place] 999032-10-01 10:41:00 Test Item Value Reference Range Interpretation Comments Globulin (test code = Globulin) 3.7 2.7-4.2 [place] 999032-10-01 10:41:00 Test Item Value Reference Range Interpretation Comments A/G Ratio (test code = A/G Ratio) 0.9 1 0.7-1.6 [place] [address]-10-01 10:41:00 Test Item Value Reference Range Interpretation Comments ALANINE AMINOTRANSFERASE (test code = 32 <=65 ALANINE AMINOTRANSFERASE) [place] 999032-10-01 10:41:00 Test Item Value Reference Range Interpretation Comments AST (test code = AST) 14 <=37 [place] [address]-10-01 10:41:00 Test Item Value Reference Range Interpretation Comments Alk Phos (test code = Alk Phos) 110 39-136 [place] 999032-10-01 10:41:00 Test Item Value Reference Range Interpretation Comments Bili Total (test code = Bili Total) 0.3 0.2-1.[address]10-01 10:41:00 Test Item Value Reference Range Interpretation Comments Bili Direct (test code = Bili Direct) no gt <=0.3 [place] 999032-10-01 10:41:00 Test Item Value Reference Range Interpretation Comments Bili Indirect (test code Unable to Calculate <=1.0 = Bili Indirect) [place] [address]-10-01 10:41:00 Test Item Value Reference Range Interpretation Comments WBC X 10x3 (test code = WBC X 10x3) 13.2 3.7-10.4 [place] [address]-10-01 10:41:00 Test Item Value Reference Range Interpretation Comments RBC X 10x6 (test code = RBC X 10x6) 4.65 4.70-6.10 [place] [address]-10-01 10:41:00 Test Item Value Reference Range Interpretation Comments Hgb (test code = Hgb) 12.7 14.0-18.0 [place] [address]-10-01 10:41:00 Test Item Value Reference Range Interpretation Comments Hct (test code = Hct) 39.8 42.0-54.0 [place] [address]-10-01 10:41:00 Test Item Value Reference Range Interpretation Comments MCV (test code = MCV) 85.5 80.0-94.0 [place] 714272-10-01 10:41:00 Test Item Value Reference Range Interpretation Comments MCH (test code = MCH) 27.4 pg 27.0-31.0 [facility] HospitalJvkrvllQWFSTEIFRJ0184-45-92 10:41:00 Test Item Value Reference Range Interpretation Comments MCHC (test code = MCHC) 32.0 32.0-36.0 [facility] HospitalIqbttfdEHHZARYHQY6254-42-53 10:41:00 Test Item Value Reference Range Interpretation Comments RDW (test code = RDW) 14.6 11.5-14.5 [place] 714272-10-01 10:41:00 Test Item Value Reference Range Interpretation Comments Platelet (test code = Platelet) 217 133-450 [facility] HospitalHcfghscBPKIZDAGJU4681-32-75 10:41:00 Test Item Value Reference Range Interpretation Comments MPV (test code = MPV) 9.4 7.4-10.4 [place] 714272-10-01 10:41:00 Test Item Value Reference Range Interpretation Comments PT (test code = PT) 12.4 s 12.0-14.7 [place] 714272-10-01 10:41:00 Test Item Value Reference Range Interpretation Comments INR (test code = INR) 0.93 1 0.85-1.17 [facility] HospitalFyhvevdNBCAPDBCWU5185-42-48 10:41:00 Test Item Value Reference Range Interpretation Comments PTT (test code = PTT) 27.5 s 22.9-35.8 [place] 714272-10-01 10:41:00 Test Item Value Reference Range Interpretation Comments Segs (test code = Segs) 80.2 45.0-75.0 [place] 714272-10-01 10:41:00 Test Item Value Reference Range Interpretation Comments Lymphocytes (test code = Lymphocytes) 14.3 20.0-40.0 [place] 714272-10-01 10:41:00 Test Item Value Reference Range Interpretation Comments Monocytes (test code = Monocytes) 4.8 2.0-12.0 [place] 714272-10-01 10:41:00 Test Item Value Reference Range Interpretation Comments Eosinophils (test code = Eosinophils) 0.4 <=4.0 [place] 714272-10-01 10:41:00 Test Item Value Reference Range Interpretation Comments Basophils (test code = Basophils) 0.3 <=1.0 [place] [address]-10-01 10:41:00 Test Item Value Reference Range Interpretation Comments Neutrophils # (test code = Neutrophils 10.6 1.5-8.1 #) [facility] HospitalNpuysxrQTAAEZLHXE5494-54-13 10:41:00 Test Item Value Reference Range Interpretation Comments Lymphocytes # (test code = Lymphocytes 1.9 1.0-5.5 #) [place] [address]-10-01 10:41:00 Test Item Value Reference Range Interpretation Comments Monocytes # (test code = Monocytes #) 0.6 <=0.8 [place] [address]-10-01 10:41:00 Test Item Value Reference Range Interpretation Comments Eosinophils # (test code = Eosinophils 0.1 <=0.5 #) [facility]AB[facility]AM[facility]166[facility] 10:41:00 Test Item Value Reference Range Interpretation Comments Hep C Ab (test code = Hep C Ab) NON-REACTIVE [place] [address]-10-01 10:41:00 Test Item Value Reference Range Interpretation Comments Hep Signal to Cut-Off (test code = Hep 0.07 1 Signal to Cut-Off) [facility] CenterCnkftzxEKWGZZGJGZ4132-90-09 10:41:00 Test Item Value Reference Range Interpretation Comments FORMERLY NAMED [facility] HIV 4th GEN (test Negative *NA*(05/12/22 code = FORMERLY NAMED [facility] HIV 4th 5:41 AM) GEN) [place] 714272-02-28 21:33:00 Test Item Value Reference Range Interpretation Comments Neutrophils # (test code = Neutrophils 4.4 1.5-8.1 #) [place] 714272-02-28 21:33:00 Test Item Value Reference Range Interpretation Comments Lymphocytes # (test code = Lymphocytes 1.1 1.0-5.5 #) [place] [address]-02-28 21:33:00 Test Item Value Reference Range Interpretation Comments Monocytes # (test code 0.2 See_Comment [Aut omated message] The = Monocytes #) system which generated this result tra nsmitted reference range : <=0.8. The reference r caleb was not used to int erpret this result as normal/abnormal . [place] 714272-02-28 21:33:00 Test Item Value Reference Range Interpretation Comments Eosinophils # (test code 0.2 See_Comment [A utomated message] The = Eosinophils #) system [employer] h generated this result tra nsmitted reference range : <=0.5. The reference r caleb was not used to int erpret this result as normal/abnormal . [facility]2022-02-28 21:33:00 Test Item Value Reference Range Interpretation Comments Glucose Lvl (test code = Glucose Lvl) 114 70-99 [place] 999032-02-28 21:33:00 Test Item Value Reference Range Interpretation Comments BUN (test code = BUN) 14 7-22 [place] 999032-02-28 21:33:00 Test Item Value Reference Range Interpretation Comments Creatinine Lvl (test code = Creatinine 1.36 0.50-1.40 Lvl) [place] 999032-02-28 21:33:00 Test Item Value Reference Range Interpretation Comments Sodium Lvl (test code = Sodium Lvl) 139 135-145 [place] 999032-02-28 21:33:00 Test Item Value Reference Range Interpretation Comments Potassium Lvl (test code = Potassium 4.6 3.5-5.1 Lvl) [place] 999032-02-28 21:33:00 Test Item Value Reference Range Interpretation Comments Chloride Lvl (test code = Chloride Lvl) 104 95-109 [place] 999032-02-28 21:33:00 Test Item Value Reference Range Interpretation Comments CO2 (test code = CO2) 29 24-32 [place] 999032-02-28 21:33:00 Test Item Value Reference Range Interpretation Comments Calcium Lvl (test code = Calcium Lvl) 9.3 8.5-10.5 [place] 999032-02-28 21:33:00 Test Item Value Reference Range Interpretation Comments AGAP (test code = AGAP) 10.6 10.0-20.0 [place] 999032-02-28 21:33:00 Test Item Value Reference Range Interpretation Comments eGFR (test code = eGFR) 64 [place] 714272-02-28 21:33:00 Test Item Value Reference Range Interpretation Comments WBC (test code = WBC) 5.9 3.7-10.4 [place] [address]-02-28 21:33:00 Test Item Value Reference Range Interpretation Comments RBC (test code = RBC) 4.85 4.70-6.10 [place] [address]-02-28 21:33:00 Test Item Value Reference Range Interpretation Comments Hgb (test code = Hgb) 13.7 14.0-18.0 [place] [address]-02-28 21:33:00 Test Item Value Reference Range Interpretation Comments Hct (test code = Hct) 41.5 42.0-54.0 [place] [address]-02-28 21:33:00 Test Item Value Reference Range Interpretation Comments MCV (test code = MCV) 85.4 80.0-94.0 [place] [address]-02-28 21:33:00 Test Item Value Reference Range Interpretation Comments MCH (test code = MCH) 28.2 pg 27.0-31.0 [place] 714272-02-28 21:33:00 Test Item Value Reference Range Interpretation Comments MCHC (test code = MCHC) 33.0 32.0-36.0 [place] [address]-02-28 21:33:00 Test Item Value Reference Range Interpretation Comments RDW (test code = RDW) 14.0 11.5-14.5 [place] [address]-02-28 21:33:00 Test Item Value Reference Range Interpretation Comments Platelet (test code = Platelet) 186 133-450 [place] 714272-02-28 21:33:00 Test Item Value Reference Range Interpretation Comments MPV (test code = MPV) 9.1 7.4-10.4 [place] [address]-02-28 21:33:00 Test Item Value Reference Range Interpretation Comments PT (test code = PT) 12.4 s 12.0-14.7 [place] [address]-02-28 21:33:00 Test Item Value Reference Range Interpretation Comments INR (test code = INR) 0.93 1 0.85-1.17 [place] [address]-02-28 21:33:00 Test Item Value Reference Range Interpretation Comments PTT (test code = PTT) 27.8 s 22.9-35.8 [place] 714272-02-28 21:33:00 Test Item Value Reference Range Interpretation Comments Segs (test code = Segs) 73.9 45.0-75.0 [place] 714272-02-28 21:33:00 Test Item Value Reference Range Interpretation Comments Lymphocytes (test code = Lymphocytes) 18.2 20.0-40.0 [place] 714272-02-28 21:33:00 Test Item Value Reference Range Interpretation Comments Monocytes (test code = Monocytes) 3.4 2.0-12.0 [place] 714272-02-28 21:33:00 Test Item Value Reference Range Interpretation Comments Eosinophils (test code = 4.2 See_Comment [A utomated message] The Eosinophils) system which ge nerated this result tra nsmitted reference range : <=4.0. The reference r caleb was not used to int erpret this result as normal/abnormal . [place] [address]-02-28 21:33:00 Test Item Value Reference Range Interpretation Comments Basophils (test code = 0.3 See_Comment [Aut omated message] The Basophils) system which ge nerated this result tra nsmitted reference range : <=1.0. The reference r caleb was not used to int erpret this result as normal/abnormal . [place] 714272-02-28 21:33:00 Test Item Value Reference Range Interpretation Comments Neutrophils # (test code = Neutrophils 4.4 1.5-8.1 #) [place] [address]-02-28 21:33:00 Test Item Value Reference Range Interpretation Comments Lymphocytes # (test code = Lymphocytes 1.1 1.0-5.5 #) [place] [address]-02-28 21:33:00 Test Item Value Reference Range Interpretation Comments Monocytes # (test code 0.2 See_Comment [Aut omated message] The = Monocytes #) system which generated this result tra nsmitted reference range : <=0.8. The reference r caleb was not used to int erpret this result as normal/abnormal . [place] 714272-02-28 21:33:00 Test Item Value Reference Range Interpretation Comments Eosinophils # (test code 0.2 See_Comment [A utomated message] The = Eosinophils #) system [facility] h generated this result tra nsmitted reference range : <=0.5. The reference r caleb was not used to int erpret this result as normal/abnormal . [place] 999032-02-28 21:33:00 Test Item Value Reference Range Interpretation Comments Glucose Lvl (test code = Glucose Lvl) 114 70-99 [place] 999032-02-28 21:33:00 Test Item Value Reference Range Interpretation Comments BUN (test code = BUN) 14 7-22 [place] 999032-02-28 21:33:00 Test Item Value Reference Range Interpretation Comments Creatinine Lvl (test code = Creatinine 1.36 0.50-1.40 Lvl) [place] [address]-02-28 21:33:00 Test Item Value Reference Range Interpretation Comments Sodium Lvl (test code = Sodium Lvl) 139 135-145 [place] 999032-02-28 21:33:00 Test Item Value Reference Range Interpretation Comments Potassium Lvl (test code = Potassium 4.6 3.5-5.1 Lvl) [place] 999032-02-28 21:33:00 Test Item Value Reference Range Interpretation Comments Chloride Lvl (test code = Chloride Lvl) 104 95-109 [place] 999032-02-28 21:33:00 Test Item Value Reference Range Interpretation Comments CO2 (test code = CO2) 29 24-32 [place] 999032-02-28 21:33:00 Test Item Value Reference Range Interpretation Comments Calcium Lvl (test code = Calcium Lvl) 9.3 8.5-10.5 [place] 999032-02-28 21:33:00 Test Item Value Reference Range Interpretation Comments AGAP (test code = AGAP) 10.6 10.0-20.0 [place] 999032-02-28 21:33:00 Test Item Value Reference Range Interpretation Comments eGFR (test code = eGFR) 64 [place] 714272-02-28 21:33:00 Test Item Value Reference Range Interpretation Comments WBC (test code = WBC) 5.9 3.7-10.4 [place] [address]-02-28 21:33:00 Test Item Value Reference Range Interpretation Comments RBC (test code = RBC) 4.85 4.70-6.10 [place] 714272-02-28 21:33:00 Test Item Value Reference Range Interpretation Comments Hgb (test code = Hgb) 13.7 14.0-18.0 [place] 714272-02-28 21:33:00 Test Item Value Reference Range Interpretation Comments Hct (test code = Hct) 41.5 42.0-54.0 [place] 714272-02-28 21:33:00 Test Item Value Reference Range Interpretation Comments MCV (test code = MCV) 85.4 80.0-94.0 [place] 714272-02-28 21:33:00 Test Item Value Reference Range Interpretation Comments MCH (test code = MCH) 28.2 pg 27.0-31.0 [place] 714272-02-28 21:33:00 Test Item Value Reference Range Interpretation Comments MCHC (test code = MCHC) 33.0 32.0-36.0 [place] 714272-02-28 21:33:00 Test Item Value Reference Range Interpretation Comments RDW (test code = RDW) 14.0 11.5-14.5 [place] 714272-02-28 21:33:00 Test Item Value Reference Range Interpretation Comments Platelet (test code = Platelet) 186 133-450 [facility] 21:33:00 Test Item Value Reference Range Interpretation Comments MPV (test code = MPV) 9.1 7.4-10.4 [place] 714272-02-28 21:33:00 Test Item Value Reference Range Interpretation Comments PT (test code = PT) 12.4 s 12.0-14.7 [place] 714272-02-28 21:33:00 Test Item Value Reference Range Interpretation Comments INR (test code = INR) 0.93 1 0.85-1.17 [place] 714272-02-28 21:33:00 Test Item Value Reference Range Interpretation Comments PTT (test code = PTT) 27.8 s 22.9-35.8 [place] 714272-02-28 21:33:00 Test Item Value Reference Range Interpretation Comments Segs (test code = Segs) 73.9 45.0-75.0 [place] 714272-02-28 21:33:00 Test Item Value Reference Range Interpretation Comments Lymphocytes (test code = Lymphocytes) 18.2 20.0-40.0 [place] 714272-02-28 21:33:00 Test Item Value Reference Range Interpretation Comments Monocytes (test code = Monocytes) 3.4 2.0-12.0 [place] 714272-02-28 21:33:00 Test Item Value Reference Range Interpretation Comments Eosinophils (test code = 4.2 See_Comment [A utomated message] The Eosinophils) system which ge nerated this result tra nsmitted reference range : <=4.0. The reference r caleb was not used to int erpret this result as normal/abnormal . [place] [address]-02-28 21:33:00 Test Item Value Reference Range Interpretation Comments Basophils (test code = 0.3 See_Comment [Aut omated message] The Basophils) system which ge nerated this result tra nsmitted reference range : <=1.0. The reference r caleb was not used to int erpret this result as normal/abnormal . [place] 999032-02-28 21:33:00 Test Item Value Reference Range Interpretation Comments Glucose Lvl (test code = Glucose Lvl) 114 70-99 [place] 999032-02-28 21:33:00 Test Item Value Reference Range Interpretation Comments BUN (test code = BUN) 14 7-22 [place] 999032-02-28 21:33:00 Test Item Value Reference Range Interpretation Comments Creatinine Lvl (test code = Creatinine 1.36 0.50-1.40 Lvl) [place] 999032-02-28 21:33:00 Test Item Value Reference Range Interpretation Comments Sodium Lvl (test code = Sodium Lvl) 139 135-145 [place] 999032-02-28 21:33:00 Test Item Value Reference Range Interpretation Comments Potassium Lvl (test code = Potassium 4.6 3.5-5.1 Lvl) [place] 999032-02-28 21:33:00 Test Item Value Reference Range Interpretation Comments Chloride Lvl (test code = Chloride Lvl) 104 95-109 [place] 999032-02-28 21:33:00 Test Item Value Reference Range Interpretation Comments CO2 (test code = CO2) 29 24-32 [place] 999032-02-28 21:33:00 Test Item Value Reference Range Interpretation Comments Calcium Lvl (test code = Calcium Lvl) 9.3 8.5-10.[address] [facility]2022-02-28 21:33:00 Test Item Value Reference Range Interpretation Comments AGAP (test code = AGAP) 10.6 10.0-20.[address] [facility]2022-02-28 21:33:00 Test Item Value Reference Range Interpretation Comments eGFR (test code = eGFR) 64 [facility]hfbgwyVRCQMJNOAC2451-14-74 21:33:00 Test Item Value Reference Range Interpretation Comments WBC (test code = WBC) 5.9 3.7-10.4 [place] 714272-02-28 21:33:00 Test Item Value Reference Range Interpretation Comments RBC (test code = RBC) 4.85 4.70-6.10 [place] 714272-02-28 21:33:00 Test Item Value Reference Range Interpretation Comments Hgb (test code = Hgb) 13.7 14.0-18.0 [place] 714272-02-28 21:33:00 Test Item Value Reference Range Interpretation Comments Hct (test code = Hct) 41.5 42.0-54.0 [place] 714272-02-28 21:33:00 Test Item Value Reference Range Interpretation Comments MCV (test code = MCV) 85.4 80.0-94.0 [place] 714272-02-28 21:33:00 Test Item Value Reference Range Interpretation Comments MCH (test code = MCH) 28.2 pg 27.0-31.0 [place] 714272-02-28 21:33:00 Test Item Value Reference Range Interpretation Comments MCHC (test code = MCHC) 33.0 32.0-36.0 [place] [address]-02-28 21:33:00 Test Item Value Reference Range Interpretation Comments RDW (test code = RDW) 14.0 11.5-14.5 [place] 714272-02-28 21:33:00 Test Item Value Reference Range Interpretation Comments Platelet (test code = Platelet) 186 133-450 [place] 714272-02-28 21:33:00 Test Item Value Reference Range Interpretation Comments MPV (test code = MPV) 9.1 7.4-10.4 [facility]XfkevcdLYUTAJTMDL3403-43-84 21:33:00 Test Item Value Reference Range Interpretation Comments PT (test code = PT) 12.4 s 12.0-14.7 [facility]JoimiiwDFPYEDYKHV8701-92-17 21:33:00 Test Item Value Reference Range Interpretation Comments INR (test code = INR) 0.93 1 0.85-1.17 [facility]ImzmqxgSFCHZPBRDE4349-74-65 21:33:00 Test Item Value Reference Range Interpretation Comments PTT (test code = PTT) 27.8 s 22.9-35.8 [place] 714272-02-28 21:33:00 Test Item Value Reference Range Interpretation Comments Segs (test code = Segs) 73.9 45.0-75.0 [facility] HospitalNbonytdTRTQQDHARJ2716-81-20 21:33:00 Test Item Value Reference Range Interpretation Comments Lymphocytes (test code = Lymphocytes) 18.2 20.0-40.0 [facility] HospitalFhrvvxhQTJJPPZXGK3684-20-47 21:33:00 Test Item Value Reference Range Interpretation Comments Monocytes (test code = Monocytes) 3.4 2.0-12.0 [facility] HospitalMwhuzqwXTTFFYNZDQ5857-85-92 21:33:00 Test Item Value Reference Range Interpretation Comments Eosinophils (test code = Eosinophils) 4.2 <=4.0 [facility] HospitalXhfsgelLIONLEGBBH4540-42-17 21:33:00 Test Item Value Reference Range Interpretation Comments Basophils (test code = Basophils) 0.3 <=1.0 [facility] HospitalGkldazhAULLECCJKF7921-38-03 21:33:00 Test Item Value Reference Range Interpretation Comments Neutrophils # (test code = Neutrophils 4.4 1.5-8.1 #) [facility] HospitalWyuvyufLZQFCYPMNN8833-66-42 21:33:00 Test Item Value Reference Range Interpretation Comments Lymphocytes # (test code = Lymphocytes 1.1 1.0-5.5 #) [facility] HospitalDmhmvgqOTIRIBNKUL6229-60-07 21:33:00 Test Item Value Reference Range Interpretation Comments Monocytes # (test code = Monocytes #) 0.2 <=0.8 [facility] HospitalJfgzhtfTNYBNYHAIS2789-26-49 21:33:00 Test Item Value Reference Range Interpretation Comments Eosinophils # (test code = Eosinophils 0.2 <=0.5 #) [facility]2022-02-28 20:31:00 Test Item Value Reference Range Interpretation Comments Glucose CSF (test code = Glucose CSF) 77 45-80 [facility]2022-02-28 20:31:00 Test Item Value Reference Range Interpretation Comments Protein CSF (test code = Protein CSF) 33 15-45 [facility]2022-02-28 20:31:00 Test Item Value Reference Range Interpretation Comments Tube Num CSF (test xxxxxxx (10/09/21 2:31 code = Tube Num CSF) PM) [facility]2022-02-28 20:31:00 Test Item Value Reference Range Interpretation Comments Color CSF (test code Colorless (10/09/21 2:31 = Color CSF) PM) [facility]2022-02-28 20:31:00 Test Item Value Reference Range Interpretation Comments Clarity CSF (test code = Clear (10/09/21 2:31 Clarity CSF) PM) [facility]2022-02-28 20:31:00 Test Item Value Reference Range Interpretation Comments Supernat CSF (test Colorless (10/09/21 2:31 code = Supernat CSF) PM) [facility]2022-02-28 20:31:00 Test Item Value Reference Range Interpretation Comments Nucleated Cells CSF 9 See_Comment [Automa leydi message] The (test code = Nucleated syste m which generated Cells CSF) this result tra nsmitted reference range : <=53. The reference r caleb was not used to int erpret this result as normal/abnormal . [facility]2022-02-28 20:31:00 Test Item Value Reference Range Interpretation Comments RBC CSF (test code = 280 See_Comment [Autom ated message] The RBC CSF) system which ge nerated this result transmit leydi reference range : <=03. The reference range was not used to interpr et this result as krishna l/abnormal. [facility]2022-02-28 20:31:00 Test Item Value Reference Range Interpretation Comments Neutrophils CSF (test 64 See_Comment [Auto mated message] The code = Neutrophils CSF) syst em which generated this result tra nsmitted reference range : <=6. The reference r caleb was not used to int erpret this result as normal/abnormal . [facility] [id number] 20:31:00 Test Item Value Reference Range Interpretation Comments Lymph CSF (test code = Lymph CSF) 30 40-80 [facility] [id number] 20:31:00 Test Item Value Reference Range Interpretation Comments Monocyte CSF (test code = Monocyte CSF) 6 15-45 [facility]: Paoddzzfm0848-89-24 20:31:00 Test Item Value Reference Range Interpretation Comments Culture: Anaerobic No Anaerobes Isolated (test code = Culture: After 3 Days Anaerobic) [facility] AmericaGram Stain [id number] 20:31:00 Test Item Value Reference Range Interpretation Comments Gram Stain Report Few Wbc'S; No Organisms (test code = Gram Seen Stain Report) [facility] America[facility]: CSF w/Gram [id number] 20:31:00 Test Item Value Reference Range Interpretation Comments Culture: CSF w/Gram 72 Hour Report - No Stain (test code = Growth, Holding Culture: CSF w/Gram Stain) [facility]2022-02-28 20:31:00 Test Item Value Reference Range Interpretation Comments Glucose CSF (test code = Glucose CSF) 77 45-80 [facility]2022-02-28 20:31:00 Test Item Value Reference Range Interpretation Comments Protein CSF (test code = Protein CSF) 33 15-45 [facility]2022-02-28 20:31:00 Test Item Value Reference Range Interpretation Comments Tube Num CSF (test xxxxxxx (10/09/21 2:31 code = Tube Num CSF) PM) [facility]2022-02-28 20:31:00 Test Item Value Reference Range Interpretation Comments Color CSF (test code Colorless (10/09/21 2:31 = Color CSF) PM) [facility]2022-02-28 20:31:00 Test Item Value Reference Range Interpretation Comments Clarity CSF (test code = Clear (10/09/21 2:31 Clarity CSF) PM) [facility]2022-02-28 20:31:00 Test Item Value Reference Range Interpretation Comments Supernat CSF (test Colorless (10/09/21 2:31 code = Supernat CSF) PM) [facility]2022-02-28 20:31:00 Test Item Value Reference Range Interpretation Comments Nucleated Cells CSF 9 See_Comment [Automa leydi message] The (test code = Nucleated syste m which generated Cells CSF) this result tra nsmitted reference range : <=53. The reference r caleb was not used to int erpret this result as normal/abnormal . [facility] [id number] 20:31:00 Test Item Value Reference Range Interpretation Comments RBC CSF (test code = 280 See_Comment [Autom ated message] The RBC CSF) system which ge nerated this result transmit leydi reference range : <=03. The reference range was not used to interpr et this result as krishna l/abnormal. [facility] [id number] 20:31:00 Test Item Value Reference Range Interpretation Comments Neutrophils CSF (test 64 See_Comment [Auto mated message] The code = Neutrophils CSF) syst em which generated this result tra nsmitted reference range : <=6. The reference r caleb was not used to int erpret this result as normal/abnormal . [facility] [id number] 20:31:00 Test Item Value Reference Range Interpretation Comments Lymph CSF (test code = Lymph CSF) 30 40-80 [facility]2022-02-28 20:31:00 Test Item Value Reference Range Interpretation Comments Monocyte CSF (test code = Monocyte CSF) 6 15-45 [facility] America[facility]: Sovzogkml2605-33-16 20:31:00 Test Item Value Reference Range Interpretation Comments Culture: Anaerobic No Anaerobes Isolated (test code = Culture: After 3 Days Anaerobic) [facility] AmericaGram Stain [id number] 20:31:00 Test Item Value Reference Range Interpretation Comments Gram Stain Report Few Wbc'S; No Organisms (test code = Gram Seen Stain Report) [facility]: CSF w/Gram [id number] 20:31:00 Test Item Value Reference Range Interpretation Comments Culture: CSF w/Gram 72 Hour Report - No Stain (test code = Growth, Holding Culture: CSF w/Gram Stain) [facility] [id number] 20:31:00 Test Item Value Reference Range Interpretation Comments Glucose CSF (test code = Glucose CSF) 77 45-80 [facility] [id number] 20:31:00 Test Item Value Reference Range Interpretation Comments Protein CSF (test code = Protein CSF) 33 15-45 [facility] [id number] 20:31:00 Test Item Value Reference Range Interpretation Comments Tube Num CSF (test xxxxxxx (10/09/21 2:31 code = Tube Num CSF) PM) [facility] [id number] 20:31:00 Test Item Value Reference Range Interpretation Comments Color CSF (test code Colorless (10/09/21 2:31 = Color CSF) PM) [facility] [id number] 20:31:00 Test Item Value Reference Range Interpretation Comments Clarity CSF (test code = Clear (10/09/21 2:31 Clarity CSF) PM) [facility] [id number] 20:31:00 Test Item Value Reference Range Interpretation Comments Supernat CSF (test Colorless (10/09/21 2:31 code = Supernat CSF) PM) [facility]2022-02-28 20:31:00 Test Item Value Reference Range Interpretation Comments Nucleated Cells CSF (test code = 9 <=53 Nucleated Cells CSF) [facility]2022-02-28 20:31:00 Test Item Value Reference Range Interpretation Comments RBC CSF (test code = RBC CSF) 280 <=03 [facility] [id number] 20:31:00 Test Item Value Reference Range Interpretation Comments Neutrophils CSF (test code = 64 <=6 Neutrophils CSF) [facility]2022-02-28 20:31:00 Test Item Value Reference Range Interpretation Comments Lymph CSF (test code = Lymph CSF) 30 40-80 [facility] [id number] 20:31:00 Test Item Value Reference Range Interpretation Comments Monocyte CSF (test code = Monocyte CSF) 6 15-45 [facility] America[facility]: Ulmbkykfi9195-62-31 20:31:00 Test Item Value Reference Range Interpretation Comments Culture: Anaerobic No Anaerobes Isolated (test code = Culture: After 3 Days Anaerobic) [facility] AmericaGram Stain [id number] 20:31:00 Test Item Value Reference Range Interpretation Comments Gram Stain Report Few Wbc'S; No Organisms (test code = Gram Seen Stain Report) [facility] America[facility]: CSF w/Gram [id number] 20:31:00 Test Item Value Reference Range Interpretation Comments Culture: CSF w/Gram 72 Hour Report - No Stain (test code = Growth, Holding Culture: CSF w/Gram Stain) [facility] [id number] 08:57:00 Test Item Value Reference Range Interpretation Comments Glucose Lvl (test code = Glucose Lvl) 109 70-99 [place] 999032-02-28 08:57:00 Test Item Value Reference Range Interpretation Comments BUN (test code = BUN) 17 7-22 [place] 999032-02-28 08:57:00 Test Item Value Reference Range Interpretation Comments Creatinine Lvl (test code = Creatinine 1.28 0.50-1.40 Lvl) [place] 999032-02-28 08:57:00 Test Item Value Reference Range Interpretation Comments Sodium Lvl (test code = Sodium Lvl) 140 135-145 [place] 999032-02-28 08:57:00 Test Item Value Reference Range Interpretation Comments Potassium Lvl (test code = Potassium 3.9 3.5-5.1 Lvl) [place] 999032-02-28 08:57:00 Test Item Value Reference Range Interpretation Comments Chloride Lvl (test code = Chloride Lvl) 108 95-109 [place] 999032-02-28 08:57:00 Test Item Value Reference Range Interpretation Comments CO2 (test code = CO2) 27 24-32 [place] 999032-02-28 08:57:00 Test Item Value Reference Range Interpretation Comments Calcium Lvl (test code = Calcium Lvl) 9.5 8.5-10.5 [place] 999032-02-28 08:57:00 Test Item Value Reference Range Interpretation Comments AGAP (test code = AGAP) 8.9 10.0-20.0 [place] 999032-02-28 08:57:00 Test Item Value Reference Range Interpretation Comments eGFR (test code = eGFR) 69 [place] [address]-02-28 08:57:00 Test Item Value Reference Range Interpretation Comments WBC (test code = WBC) 8.5 3.7-10.4 [place] [address]-02-28 08:57:00 Test Item Value Reference Range Interpretation Comments RBC (test code = RBC) 4.69 4.70-6.10 [address]02-28 08:57:00 Test Item Value Reference Range Interpretation Comments Hgb (test code = Hgb) 13.3 14.0-18.0 [place] [address]-02-28 08:57:00 Test Item Value Reference Range Interpretation Comments Hct (test code = Hct) 40.4 42.0-54.0 [facility]GknhsizCPLEIJEJYC0180-69-67 08:57:00 Test Item Value Reference Range Interpretation Comments MCV (test code = MCV) 86.1 80.0-94.0 [facility] HospitalIrmjmevYUOOSUCAHU5332-51-42 08:57:00 Test Item Value Reference Range Interpretation Comments MCH (test code = MCH) 28.3 pg 27.0-31.0 [facility] HospitalQofbrhvKHZJVIUIGM8726-51-86 08:57:00 Test Item Value Reference Range Interpretation Comments MCHC (test code = MCHC) 32.9 32.0-36.0 [facility] HospitalXxyxcurHWUOZIIVIP1844-82-09 08:57:00 Test Item Value Reference Range Interpretation Comments RDW (test code = RDW) 14.1 11.5-14.5 [facility] HospitalLpihtyaKSGBIJYMQJ2890-84-57 08:57:00 Test Item Value Reference Range Interpretation Comments Platelet (test code = Platelet) 192 133-450 [facility] HospitalCnnlsmzGVYGVJQWJS3396-63-08 08:57:00 Test Item Value Reference Range Interpretation Comments MPV (test code = MPV) 9.2 7.4-10.4 [place] 714272-02-28 08:57:00 Test Item Value Reference Range Interpretation Comments R-time (test code = R-time) 6.0 min 5.0-10.0 [facility] HospitalUqefzvlLWRSASGQMJ6388-01-62 08:57:00 Test Item Value Reference Range Interpretation Comments K-time (test code = K-time) 1.4 min 1.0-3.0 [facility] HospitalBfdofuwHJUIDQZEFU1786-25-41 08:57:00 Test Item Value Reference Range Interpretation Comments Angle (test code = Angle) 69.7 degrees 53.0-72.0 [place] 714272-02-28 08:57:00 Test Item Value Reference Range Interpretation Comments Max Amp (test code = Max Amp) 66.3 mm 50.0-70.0 [place] 714272-02-28 08:57:00 Test Item Value Reference Range Interpretation Comments G-value (test code = G-value) 9.8 4.5-11.0 [place] 714272-02-28 08:57:00 Test Item Value Reference Range Interpretation Comments Ly30 (test code = 0.6 See_Comment [Automate d message] The Ly30) system which ge nerated this result transmit leydi reference range : <=7.5. The reference range was not used to interpr et this result as krishna l/abnormal. [place] 714272-02-28 08:57:00 Test Item Value Reference Range Interpretation Comments Coag Index (test code 1.2 1 See_Comment [Auto mated message] The = Coag Index) system which g enerated this result transmit leydi reference range : <=3.0. The reference range was not used to interpr et this result as krishna l/abnormal. [place] 714272-02-28 08:57:00 Test Item Value Reference Range Interpretation Comments TEG Data (test code = See Note (10/09/21 2:57 TEG Data) AM) [place] 714272-02-28 08:57:00 Test Item Value Reference Range Interpretation Comments PT (test code = PT) 12.1 s 12.0-14.7 [place] [place]14272-[place]-28 08:57:00 Test Item Value Reference Range Interpretation Comments INR (test code = INR) 0.90 1 0.85-1.17 [place] 714272-02-28 08:57:00 Test Item Value Reference Range Interpretation Comments PTT (test code = PTT) 27.6 s 22.9-35.8 [place] [address]-02-28 08:57:00 Test Item Value Reference Range Interpretation Comments Segs (test code = Segs) 52.0 45.0-75.0 [place] 714272-02-28 08:57:00 Test Item Value Reference Range Interpretation Comments Lymphocytes (test code = Lymphocytes) 33.8 20.0-40.0 [place] [address]-02-28 08:57:00 Test Item Value Reference Range Interpretation Comments Monocytes (test code = Monocytes) 8.0 2.0-12.0 [place] [address]-02-28 08:57:00 Test Item Value Reference Range Interpretation Comments Eosinophils (test code = 5.8 See_Comment [A utomated message] The Eosinophils) system which ge nerated this result tra nsmitted reference range : <=4.0. The reference r caleb was not used to int erpret this result as normal/abnormal . [place] 714272-02-28 08:57:00 Test Item Value Reference Range Interpretation Comments Basophils (test code = 0.4 See_Comment [Aut omated message] The Basophils) system which ge nerated this result tra nsmitted reference range : <=1.0. The reference r caleb was not used to int erpret this result as normal/abnormal . [place] 714272-02-28 08:57:00 Test Item Value Reference Range Interpretation Comments Neutrophils # (test code = Neutrophils 4.4 1.5-8.1 #) [place] 714272-02-28 08:57:00 Test Item Value Reference Range Interpretation Comments Lymphocytes # (test code = Lymphocytes 2.9 1.0-5.5 #) [place] 714272-02-28 08:57:00 Test Item Value Reference Range Interpretation Comments Monocytes # (test code 0.7 See_Comment [Aut omated message] The = Monocytes #) system which generated this result tra nsmitted reference range : <=0.8. The reference r caleb was not used to int erpret this result as normal/abnormal . [place] 714272-02-28 08:57:00 Test Item Value Reference Range Interpretation Comments Eosinophils # (test code 0.5 See_Comment [A utomated message] The = Eosinophils #) system whic h generated this result tra nsmitted reference range : <=0.5. The reference r caleb was not used to int erpret this result as normal/abnormal . [place] 714272-02-28 08:57:00 Test Item Value Reference Range Interpretation Comments TEG Interp (test Thrombelastograph results code = TEG are within reference ranges. Interp) Note that TEG does not show effect of NSAIDs or P2Y12 inhibitors. CPT:11973 [place] 999032-02-28 08:57:00 Test Item Value Reference Range Interpretation Comments Glucose Lvl (test code = Glucose Lvl) 109 70-99 [place] 999032-02-28 08:57:00 Test Item Value Reference Range Interpretation Comments BUN (test code = BUN) 17 7-22 [place] 999032-02-28 08:57:00 Test Item Value Reference Range Interpretation Comments Creatinine Lvl (test code = Creatinine 1.28 0.50-1.40 Lvl) [place] 999032-02-28 08:57:00 Test Item Value Reference Range Interpretation Comments Sodium Lvl (test code = Sodium Lvl) 140 135-145 [place] [address]-02-28 08:57:00 Test Item Value Reference Range Interpretation Comments Potassium Lvl (test code = Potassium 3.9 3.5-5.1 Lvl) [place] 999032-02-28 08:57:00 Test Item Value Reference Range Interpretation Comments Chloride Lvl (test code = Chloride Lvl) 108 95-109 [place] [address]-02-28 08:57:00 Test Item Value Reference Range Interpretation Comments CO2 (test code = CO2) 27 24-32 [address]02-28 08:57:00 Test Item Value Reference Range Interpretation Comments Calcium Lvl (test code = Calcium Lvl) 9.5 8.5-10.5 [place] 999032-02-28 08:57:00 Test Item Value Reference Range Interpretation Comments AGAP (test code = AGAP) 8.9 10.0-20.0 [address]02-28 08:57:00 Test Item Value Reference Range Interpretation Comments eGFR (test code = eGFR) 69 [address]02-28 08:57:00 Test Item Value Reference Range Interpretation Comments WBC (test code = WBC) 8.5 3.7-10.4 [address]02-28 08:57:00 Test Item Value Reference Range Interpretation Comments RBC (test code = RBC) 4.69 4.70-6.10 [address]02-28 08:57:00 Test Item Value Reference Range Interpretation Comments Hgb (test code = Hgb) 13.3 14.0-18.0 [place] [address]-02-28 08:57:00 Test Item Value Reference Range Interpretation Comments Hct (test code = Hct) 40.4 42.0-54.0 [address]02-28 08:57:00 Test Item Value Reference Range Interpretation Comments MCV (test code = MCV) 86.1 80.0-94.0 [facility]108[facility] 08:57:00 Test Item Value Reference Range Interpretation Comments MCH (test code = MCH) 28.3 pg 27.0-31.0 [facility]cvqkygMSZVAQKRHS0057-72-49 08:57:00 Test Item Value Reference Range Interpretation Comments MCHC (test code = MCHC) 32.9 32.0-36.0 [facility] HospitalJjnekinCSWBZVUGXF2198-33-82 08:57:00 Test Item Value Reference Range Interpretation Comments RDW (test code = RDW) 14.1 11.5-14.5 [place] 714272-02-28 08:57:00 Test Item Value Reference Range Interpretation Comments Platelet (test code = Platelet) 192 133-450 [facility] HospitalYdcbasbEEVPACJBYX1793-96-04 08:57:00 Test Item Value Reference Range Interpretation Comments MPV (test code = MPV) 9.2 7.4-10.4 [place] 714272-02-28 08:57:00 Test Item Value Reference Range Interpretation Comments R-time (test code = R-time) 6.0 min 5.0-10.0 [place] 714272-02-28 08:57:00 Test Item Value Reference Range Interpretation Comments K-time (test code = K-time) 1.4 min 1.0-3.0 [place] 714272-02-28 08:57:00 Test Item Value Reference Range Interpretation Comments Angle (test code = Angle) 69.7 degrees 53.0-72.0 [place] 714272-02-28 08:57:00 Test Item Value Reference Range Interpretation Comments Max Amp (test code = Max Amp) 66.3 mm 50.0-70.0 [place] 714272-02-28 08:57:00 Test Item Value Reference Range Interpretation Comments G-value (test code = G-value) 9.8 4.5-11.0 [place] 714272-02-28 08:57:00 Test Item Value Reference Range Interpretation Comments Ly30 (test code = 0.6 See_Comment [Automate d message] The Ly30) system which ge nerated this result transmit leydi reference range : <=7.5. The reference range was not used to interpr et this result as krishna l/abnormal. [place] 714272-02-28 08:57:00 Test Item Value Reference Range Interpretation Comments Coag Index (test code 1.2 1 See_Comment [Auto mated message] The = Coag Index) system which g enerated this result transmit leydi reference range : <=3.0. The reference range was not used to interpr et this result as krishna l/abnormal. [place] 714272-02-28 08:57:00 Test Item Value Reference Range Interpretation Comments TEG Data (test code = See Note (10/09/21 2:57 TEG Data) AM) [place] 714272-02-28 08:57:00 Test Item Value Reference Range Interpretation Comments PT (test code = PT) 12.1 s 12.0-14.7 [place] [address]-02-28 08:57:00 Test Item Value Reference Range Interpretation Comments INR (test code = INR) 0.90 1 0.85-1.17 [place] [address]-02-28 08:57:00 Test Item Value Reference Range Interpretation Comments PTT (test code = PTT) 27.6 s 22.9-35.8 [place] [address]-02-28 08:57:00 Test Item Value Reference Range Interpretation Comments Segs (test code = Segs) 52.0 45.0-75.0 [place] [address]-02-28 08:57:00 Test Item Value Reference Range Interpretation Comments Lymphocytes (test code = Lymphocytes) 33.8 20.0-40.0 [place] [address]-02-28 08:57:00 Test Item Value Reference Range Interpretation Comments Monocytes (test code = Monocytes) 8.0 2.0-12.0 [place] [address]-02-28 08:57:00 Test Item Value Reference Range Interpretation Comments Eosinophils (test code = 5.8 See_Comment [A utomated message] The Eosinophils) system which ge nerated this result tra nsmitted reference range : <=4.0. The reference r caleb was not used to int erpret this result as normal/abnormal . [place]14[place]-02-28 08:57:00 Test Item Value Reference Range Interpretation Comments Basophils (test code = 0.4 See_Comment [Aut omated message] The Basophils) system which ge nerated this result tra nsmitted reference range : <=1.0. The reference r caleb was not used to int erpret this result as normal/abnormal . [place] 714272-02-28 08:57:00 Test Item Value Reference Range Interpretation Comments Neutrophils # (test code = Neutrophils 4.4 1.5-8.1 #) [place] [address]-02-28 08:57:00 Test Item Value Reference Range Interpretation Comments Lymphocytes # (test code = Lymphocytes 2.9 1.0-5.5 #) [address]02-28 08:57:00 Test Item Value Reference Range Interpretation Comments Monocytes # (test code 0.7 See_Comment [Aut omated message] The = Monocytes #) system which generated this result tra nsmitted reference range : <=0.8. The reference r caleb was not used to int erpret this result as normal/abnormal . [place] [address]-02-28 08:57:00 Test Item Value Reference Range Interpretation Comments Eosinophils # (test code 0.5 See_Comment [A utomated message] The = Eosinophils #) system whic h generated this result tra nsmitted reference range : <=0.5. The reference r caleb was not used to int erpret this result as normal/abnormal . [place] 714272-02-28 08:57:00 Test Item Value Reference Range Interpretation Comments TEG Interp (test Thrombelastograph results code = TEG are within reference ranges. Interp) Note that TEG does not show effect of NSAIDs or P2Y12 inhibitors. CPT:[address] [facility]2022-02-28 08:57:00 Test Item Value Reference Range Interpretation Comments Glucose Lvl (test code = Glucose Lvl) 109 70-99 [place] 999032-02-28 08:57:00 Test Item Value Reference Range Interpretation Comments BUN (test code = BUN) 17 7-22 [place] 999032-02-28 08:57:00 Test Item Value Reference Range Interpretation Comments Creatinine Lvl (test code = Creatinine 1.28 0.50-1.40 Lvl) [place] 999032-02-28 08:57:00 Test Item Value Reference Range Interpretation Comments Sodium Lvl (test code = Sodium Lvl) 140 135-145 [place] 999032-02-28 08:57:00 Test Item Value Reference Range Interpretation Comments Potassium Lvl (test code = Potassium 3.9 3.5-5.1 Lvl) [place] 999032-02-28 08:57:00 Test Item Value Reference Range Interpretation Comments Chloride Lvl (test code = Chloride Lvl) 108 95-109 [place] 999032-02-28 08:57:00 Test Item Value Reference Range Interpretation Comments CO2 (test code = CO2) 27 24-32 [place] 999032-02-28 08:57:00 Test Item Value Reference Range Interpretation Comments Calcium Lvl (test code = Calcium Lvl) 9.5 8.5-10.5 [place] 999032-02-28 08:57:00 Test Item Value Reference Range Interpretation Comments AGAP (test code = AGAP) 8.9 10.0-20.0 [place] 999032-02-28 08:57:00 Test Item Value Reference Range Interpretation Comments eGFR (test code = eGFR) 69 [place] [address]-02-28 08:57:00 Test Item Value Reference Range Interpretation Comments WBC (test code = WBC) 8.5 3.7-10.4 [place] [address]-02-28 08:57:00 Test Item Value Reference Range Interpretation Comments RBC (test code = RBC) 4.69 4.70-6.10 [place] 714272-02-28 08:57:00 Test Item Value Reference Range Interpretation Comments Hgb (test code = Hgb) 13.3 14.0-18.0 [place] [address]-02-28 08:57:00 Test Item Value Reference Range Interpretation Comments Hct (test code = Hct) 40.4 42.0-54.0 [place] [address]-02-28 08:57:00 Test Item Value Reference Range Interpretation Comments MCV (test code = MCV) 86.1 80.0-94.0 [address]02-28 08:57:00 Test Item Value Reference Range Interpretation Comments MCH (test code = MCH) 28.3 pg 27.0-31.0 [place] [address]-02-28 08:57:00 Test Item Value Reference Range Interpretation Comments MCHC (test code = MCHC) 32.9 32.0-36.0 [facility]IpzynbnPJXQNYIVQI1834-71-93 08:57:00 Test Item Value Reference Range Interpretation Comments RDW (test code = RDW) 14.1 11.5-14.5 [facility] HospitalNfmztbbBQIHASPNVT6406-36-46 08:57:00 Test Item Value Reference Range Interpretation Comments Platelet (test code = Platelet) 192 133-450 [facility] HospitalBvxfmoqSQNNKQKVYP0776-40-80 08:57:00 Test Item Value Reference Range Interpretation Comments MPV (test code = MPV) 9.2 7.4-10.4 [facility] HospitalEznxjjpKMQNOTBWZS5335-32-09 08:57:00 Test Item Value Reference Range Interpretation Comments R-time (test code = R-time) 6.0 min 5.0-10.0 [facility] HospitalXmczgrwDQRZTMLBXC8820-86-98 08:57:00 Test Item Value Reference Range Interpretation Comments K-time (test code = K-time) 1.4 min 1.0-3.0 [facility] HospitalKkhpeggUOGFOACAUO4494-19-21 08:57:00 Test Item Value Reference Range Interpretation Comments Angle (test code = Angle) 69.7 degrees 53.0-72.0 [facility] HospitalHvgfgxfXDMMEIYSWD6104-91-09 08:57:00 Test Item Value Reference Range Interpretation Comments Max Amp (test code = Max Amp) 66.3 mm 50.0-70.0 [facility] HospitalIloppbzSSPGEUTMQM3183-56-79 08:57:00 Test Item Value Reference Range Interpretation Comments G-value (test code = G-value) 9.8 4.5-11.0 [facility] HospitalRzhsngxOWWHEYWYJE5838-60-92 08:57:00 Test Item Value Reference Range Interpretation Comments Ly30 (test code = Ly30) 0.6 <=7.5 [facility] HospitalOpurnlfJOWCOHSNIN4109-24-56 08:57:00 Test Item Value Reference Range Interpretation Comments Coag Index (test code = Coag Index) 1.2 1 <=3.0 [facility] HospitalHndvjhkQWYICSBLPN8542-29-04 08:57:00 Test Item Value Reference Range Interpretation Comments TEG Data (test code = See Note (10/09/21 2:57 TEG Data) AM) [place] 714272-02-28 08:57:00 Test Item Value Reference Range Interpretation Comments PT (test code = PT) 12.1 s 12.0-14.7 [place] [address]-02-28 08:57:00 Test Item Value Reference Range Interpretation Comments INR (test code = INR) 0.90 1 0.85-1.17 [address]02-28 08:57:00 Test Item Value Reference Range Interpretation Comments PTT (test code = PTT) 27.6 s 22.9-35.8 [address]02-28 08:57:00 Test Item Value Reference Range Interpretation Comments Segs (test code = Segs) 52.0 45.0-75.0 [address]02-28 08:57:00 Test Item Value Reference Range Interpretation Comments Lymphocytes (test code = Lymphocytes) 33.8 20.0-40.0 [address]02-28 08:57:00 Test Item Value Reference Range Interpretation Comments Monocytes (test code = Monocytes) 8.0 2.0-12.0 [place] [address]-02-28 08:57:00 Test Item Value Reference Range Interpretation Comments Eosinophils (test code = Eosinophils) 5.8 <=4.0 [place] [address]-02-28 08:57:00 Test Item Value Reference Range Interpretation Comments Basophils (test code = Basophils) 0.4 <=1.0 [address]02-28 08:57:00 Test Item Value Reference Range Interpretation Comments Neutrophils # (test code = Neutrophils 4.4 1.5-8.1 #) [place] 714272-02-28 08:57:00 Test Item Value Reference Range Interpretation Comments Lymphocytes # (test code = Lymphocytes 2.9 1.0-5.5 #) [address]02-28 08:57:00 Test Item Value Reference Range Interpretation Comments Monocytes # (test code = Monocytes #) 0.7 <=0.8 [address]02-28 08:57:00 Test Item Value Reference Range Interpretation Comments Eosinophils # (test code = Eosinophils 0.5 <=0.5 #) [place] [address]-02-28 08:57:00 Test Item Value Reference Range Interpretation Comments TEG Interp (test Thrombelastograph results code = TEG are within reference ranges. Interp) Note that TEG does not show effect of NSAIDs or P2Y12 inhibitors. CPT:82737 [place] 999032-02-28 02:07:26 Test Item Value Reference Range Interpretation Comments Glucose Lvl (test code = Glucose Lvl) 95 70-99 [place] [address]-02-28 02:07:26 Test Item Value Reference Range Interpretation Comments BUN (test code = BUN) 13 7-22 [place] 999032-02-28 02:07:26 Test Item Value Reference Range Interpretation Comments Creatinine Lvl (test code = Creatinine 1.24 0.50-1.40 Lvl) [place] [address]-02-28 02:07:26 Test Item Value Reference Range Interpretation Comments Sodium Lvl (test code = Sodium Lvl) 140 135-145 [place] 999032-02-28 02:07:26 Test Item Value Reference Range Interpretation Comments Potassium Lvl (test code = Potassium 3.7 3.5-5.1 Lvl) [place] 999032-02-28 02:07:26 Test Item Value Reference Range Interpretation Comments Chloride Lvl (test code = Chloride Lvl) 106 95-109 [place] 999032-02-28 02:07:26 Test Item Value Reference Range Interpretation Comments CO2 (test code = CO2) 30 24-32 [place] 999032-02-28 02:07:26 Test Item Value Reference Range Interpretation Comments Calcium Lvl (test code = Calcium Lvl) 9.5 8.5-10.5 [place] 999032-02-28 02:07:26 Test Item Value Reference Range Interpretation Comments AGAP (test code = AGAP) 7.7 10.0-20.0 [place] [address]-02-28 02:07:26 Test Item Value Reference Range Interpretation Comments eGFR (test code = eGFR) 72 [place] 714272-02-28 02:07:26 Test Item Value Reference Range Interpretation Comments WBC X 10x3 (test code = WBC X 10x3) 7.4 3.7-10.4 [place]14272-02-28 02:07:26 Test Item Value Reference Range Interpretation Comments RBC X 10x6 (test code = RBC X 10x6) 5.06 4.70-6.10 [place] 714272-02-28 02:07:26 Test Item Value Reference Range Interpretation Comments Hgb (test code = Hgb) 14.0 14.0-18.0 [place] [address]-02-28 02:07:26 Test Item Value Reference Range Interpretation Comments Hct (test code = Hct) 43.5 42.0-54.0 [place] 714272-02-28 02:07:26 Test Item Value Reference Range Interpretation Comments MCV (test code = MCV) 85.9 80.0-94.0 [place] [address]-02-28 02:07:26 Test Item Value Reference Range Interpretation Comments MCH (test code = MCH) 27.7 pg 27.0-31.0 [place] 714272-02-28 02:07:26 Test Item Value Reference Range Interpretation Comments MCHC (test code = MCHC) 32.3 32.0-36.0 [place] 714272-02-28 02:07:26 Test Item Value Reference Range Interpretation Comments RDW (test code = RDW) 13.9 11.5-14.5 [place]14272-02-28 02:07:26 Test Item Value Reference Range Interpretation Comments Platelet (test code = Platelet) 192 133-450 [place]14272-02-28 02:07:26 Test Item Value Reference Range Interpretation Comments MPV (test code = MPV) 9.1 7.4-10.4 [place] [address]-02-28 02:07:26 Test Item Value Reference Range Interpretation Comments ACT (TEG) Rapid (test code = ACT (TEG) 128 s 86-118 Rapid) [place]14272-02-28 02:07:26 Test Item Value Reference Range Interpretation Comments Split Point Rapid (test code = Split 0.7 min Point Rapid) [place]14272-02-28 02:07:26 Test Item Value Reference Range Interpretation Comments R-time Rapid (test code = R-time 0.8 min 0.4-0.7 Rapid) [place]14272-02-28 02:07:26 Test Item Value Reference Range Interpretation Comments K-time Rapid (test code = K-time 1.1 min 0.6-2.3 Rapid) [address]02-28 02:07:26 Test Item Value Reference Range Interpretation Comments Angle Rapid (test code = Angle 76 degrees 64-80 Rapid) [place] [address]-02-28 02:07:26 Test Item Value Reference Range Interpretation Comments Max Amplitude Rapid (test code = Max 71 mm 52-71 Amplitude Rapid) [address]02-28 02:07:26 Test Item Value Reference Range Interpretation Comments G-value Rapid (test code = G-value 12.1 5.0-11.6 Rapid) [address]02-28 02:07:26 Test Item Value Reference Range Interpretation Comments Estimated % Lysis Rapid 0.8 See_Comment [Au tomated message] The (test code = Estimated syste m which generated % Lysis Rapid) this result t ransmitted reference range : <=7.5. The reference r caleb was not used to int erpret this result as normal/abnormal . [place]14[place]-02-28 02:07:26 Test Item Value Reference Range Interpretation Comments PT (test code = PT) 12.5 s 12.0-14.7 [address]02-28 02:07:26 Test Item Value Reference Range Interpretation Comments INR (test code = INR) 0.94 1 0.85-1.17 [address]02-28 02:07:26 Test Item Value Reference Range Interpretation Comments PTT (test code = PTT) 29.6 s 22.9-35.8 [place] [address]-02-28 02:07:26 Test Item Value Reference Range Interpretation Comments Segs (test code = Segs) 57.2 45.0-75.0 [place] [address]-02-28 02:07:26 Test Item Value Reference Range Interpretation Comments Lymphocytes (test code = Lymphocytes) 30.9 20.0-40.0 [place] [address]-02-28 02:07:26 Test Item Value Reference Range Interpretation Comments Monocytes (test code = Monocytes) 5.6 2.0-12.0 [address]02-28 02:07:26 Test Item Value Reference Range Interpretation Comments Eosinophils (test code = 5.6 See_Comment [A utomated message] The Eosinophils) system which ge nerated this result tra nsmitted reference range : <=4.0. The reference r caleb was not used to int erpret this result as normal/abnormal . [facility]OyltvapCLUGNLROII1716-89-98 02:07:26 Test Item Value Reference Range Interpretation Comments Basophils (test code = 0.7 See_Comment [Aut omated message] The Basophils) system which ge nerated this result tra nsmitted reference range : <=1.0. The reference r caleb was not used to int erpret this result as normal/abnormal . [facility] HospitalCeyshruUIQEZAOMLO9571-18-31 02:07:26 Test Item Value Reference Range Interpretation Comments Neutrophils # (test code = Neutrophils 4.3 1.5-8.1 #) [facility] HospitalYbwrfxiGYKQBKFXUS3225-68-92 02:07:26 Test Item Value Reference Range Interpretation Comments Lymphocytes # (test code = Lymphocytes 2.3 1.0-5.5 #) [place]14[place]-02-28 02:07:26 Test Item Value Reference Range Interpretation Comments Monocytes # (test code 0.4 See_Comment [Aut omated message] The = Monocytes #) system which generated this result tra nsmitted reference range : <=0.8. The reference r caleb was not used to int erpret this result as normal/abnormal . [facility] HospitalGaznzkvDOCNUGXONM2732-75-70 02:07:26 Test Item Value Reference Range Interpretation Comments Eosinophils # (test code 0.4 See_Comment [A utomated message] The = Eosinophils #) system whic h generated this result tra nsmitted reference range : <=0.5. The reference r caleb was not used to int erpret this result as normal/abnormal . [facility] AmericaJihdixyVYVBTAVWEM8776-18-98 02:07:26 Test Item Value Reference Range Interpretation Comments Coronavirus (COVID-19) Not Detected (10/08/21 LIZBETH (test code = 8:07 PM) Coronavirus (COVID-19) LIZBETH) [facility] AmericaZ[facility]ie BLSBV9947-91-82 02:07:26 Test Item Value Reference Range Interpretation Comments Glucose Lvl (test code = Glucose Lvl) 95 70-99 [facility] BUJDL6926-15-70 02:07:26 Test Item Value Reference Range Interpretation Comments BUN (test code = BUN) 13 7-22 [place] 999032-02-28 02:07:26 Test Item Value Reference Range Interpretation Comments Creatinine Lvl (test code = Creatinine 1.24 0.50-1.40 Lvl) [place] 999032-02-28 02:07:26 Test Item Value Reference Range Interpretation Comments Sodium Lvl (test code = Sodium Lvl) 140 135-145 [place] 999032-02-28 02:07:26 Test Item Value Reference Range Interpretation Comments Potassium Lvl (test code = Potassium 3.7 3.5-5.1 Lvl) [place] 999032-02-28 02:07:26 Test Item Value Reference Range Interpretation Comments Chloride Lvl (test code = Chloride Lvl) 106 95-109 [place] 999032-02-28 02:07:26 Test Item Value Reference Range Interpretation Comments CO2 (test code = CO2) 30 24-32 [place] 999032-02-28 02:07:26 Test Item Value Reference Range Interpretation Comments Calcium Lvl (test code = Calcium Lvl) 9.5 8.5-10.5 [place] 999032-02-28 02:07:26 Test Item Value Reference Range Interpretation Comments AGAP (test code = AGAP) 7.7 10.0-20.0 [place] 999032-02-28 02:07:26 Test Item Value Reference Range Interpretation Comments eGFR (test code = eGFR) 72 [place] 714272-02-28 02:07:26 Test Item Value Reference Range Interpretation Comments WBC X 10x3 (test code = WBC X 10x3) 7.4 3.7-10.4 [place] 714272-02-28 02:07:26 Test Item Value Reference Range Interpretation Comments RBC X 10x6 (test code = RBC X 10x6) 5.06 4.70-6.10 [place] 714272-02-28 02:07:26 Test Item Value Reference Range Interpretation Comments Hgb (test code = Hgb) 14.0 14.0-18.0 [place] [address]-02-28 02:07:26 Test Item Value Reference Range Interpretation Comments Hct (test code = Hct) 43.5 42.0-54.0 [place] 714272-02-28 02:07:26 Test Item Value Reference Range Interpretation Comments MCV (test code = MCV) 85.9 80.0-94.0 [place] 714272-02-28 02:07:26 Test Item Value Reference Range Interpretation Comments MCH (test code = MCH) 27.7 pg 27.0-31.0 [facility]E3874[facility]47-60 02:07:26 Test Item Value Reference Range Interpretation Comments MCHC (test code = MCHC) 32.3 32.0-36.0 [place] 714272-02-28 02:07:26 Test Item Value Reference Range Interpretation Comments RDW (test code = RDW) 13.9 11.5-14.5 [place] 714272-02-28 02:07:26 Test Item Value Reference Range Interpretation Comments Platelet (test code = Platelet) 192 133-450 [facility]YkcmelqXXTWOMEPWP2516-97-75 02:07:26 Test Item Value Reference Range Interpretation Comments MPV (test code = MPV) 9.1 7.4-10.4 [place] 714272-02-28 02:07:26 Test Item Value Reference Range Interpretation Comments ACT (TEG) Rapid (test code = ACT (TEG) 128 s 86-118 Rapid) [place] 714272-02-28 02:07:26 Test Item Value Reference Range Interpretation Comments Split Point Rapid (test code = Split 0.7 min Point Rapid) [place] 714272-02-28 02:07:26 Test Item Value Reference Range Interpretation Comments R-time Rapid (test code = R-time 0.8 min 0.4-0.7 Rapid) [place] 714272-02-28 02:07:26 Test Item Value Reference Range Interpretation Comments K-time Rapid (test code = K-time 1.1 min 0.6-2.3 Rapid) [place] 714272-02-28 02:07:26 Test Item Value Reference Range Interpretation Comments Angle Rapid (test code = Angle 76 degrees 64-80 Rapid) [place] 714272-02-28 02:07:26 Test Item Value Reference Range Interpretation Comments Max Amplitude Rapid (test code = Max 71 mm 52-71 Amplitude Rapid) [place] 714272-02-28 02:07:26 Test Item Value Reference Range Interpretation Comments G-value Rapid (test code = G-value 12.1 5.0-11.6 Rapid) [place] 714272-02-28 02:07:26 Test Item Value Reference Range Interpretation Comments Estimated % Lysis Rapid 0.8 See_Comment [Au tomated message] The (test code = Estimated syste m which generated % Lysis Rapid) this result t ransmitted reference range : <=7.5. The reference r caleb was not used to int erpret this result as normal/abnormal . [place] 714272-02-28 02:07:26 Test Item Value Reference Range Interpretation Comments PT (test code = PT) 12.5 s 12.0-14.7 [place] 714272-02-28 02:07:26 Test Item Value Reference Range Interpretation Comments INR (test code = INR) 0.94 1 0.85-1.17 [place] 714272-02-28 02:07:26 Test Item Value Reference Range Interpretation Comments PTT (test code = PTT) 29.6 s 22.9-35.8 [place] 714272-02-28 02:07:26 Test Item Value Reference Range Interpretation Comments Segs (test code = Segs) 57.2 45.0-75.0 [place] 714272-02-28 02:07:26 Test Item Value Reference Range Interpretation Comments Lymphocytes (test code = Lymphocytes) 30.9 20.0-40.0 [place] 714272-02-28 02:07:26 Test Item Value Reference Range Interpretation Comments Monocytes (test code = Monocytes) 5.6 2.0-12.0 [place] [address]-02-28 02:07:26 Test Item Value Reference Range Interpretation Comments Eosinophils (test code = 5.6 See_Comment [A utomated message] The Eosinophils) system which ge nerated this result tra nsmitted reference range : <=4.0. The reference r caleb was not used to int erpret this result as normal/abnormal . [place] 714272-02-28 02:07:26 Test Item Value Reference Range Interpretation Comments Basophils (test code = 0.7 See_Comment [Aut omated message] The Basophils) system which ge nerated this result tra nsmitted reference range : <=1.0. The reference r caleb was not used to int erpret this result as normal/abnormal . [place] 714272-02-28 02:07:26 Test Item Value Reference Range Interpretation Comments Neutrophils # (test code = Neutrophils 4.3 1.5-8.1 #) [place] 714272-02-28 02:07:26 Test Item Value Reference Range Interpretation Comments Lymphocytes # (test code = Lymphocytes 2.3 1.0-5.5 #) [place] [address]-02-28 02:07:26 Test Item Value Reference Range Interpretation Comments Monocytes # (test code 0.4 See_Comment [Aut omated message] The = Monocytes #) system which generated this result tra nsmitted reference range : <=0.8. The reference r caleb was not used to int erpret this result as normal/abnormal . [place] [address]-02-28 02:07:26 Test Item Value Reference Range Interpretation Comments Eosinophils # (test code 0.4 See_Comment [A utomated message] The = Eosinophils #) system whic h generated this result tra nsmitted reference range : <=0.5. The reference r caleb was not used to int erpret this result as normal/abnormal . [facility] AmericaCpsdvntQTRRMEYGHT0981-86-54 02:07:26 Test Item Value Reference Range Interpretation Comments Coronavirus (COVID-19) Not Detected (10/08/21 LIZBETH (test code = 8:07 PM) Coronavirus (COVID-19) LIZBETH) [place] 999032-02-28 02:07:26 Test Item Value Reference Range Interpretation Comments Glucose Lvl (test code = Glucose Lvl) 95 70-99 [place] 999032-02-28 02:07:26 Test Item Value Reference Range Interpretation Comments BUN (test code = BUN) 13 7-22 [place] 999032-02-28 02:07:26 Test Item Value Reference Range Interpretation Comments Creatinine Lvl (test code = Creatinine 1.24 0.50-1.40 Lvl) [place] 999032-02-28 02:07:26 Test Item Value Reference Range Interpretation Comments Sodium Lvl (test code = Sodium Lvl) 140 135-145 [place] 999032-02-28 02:07:26 Test Item Value Reference Range Interpretation Comments Potassium Lvl (test code = Potassium 3.7 3.5-5.1 Lvl) [place] 999032-02-28 02:07:26 Test Item Value Reference Range Interpretation Comments Chloride Lvl (test code = Chloride Lvl) 106 95-109 [place] 999032-02-28 02:07:26 Test Item Value Reference Range Interpretation Comments CO2 (test code = CO2) 30 24-32 [place] 999032-02-28 02:07:26 Test Item Value Reference Range Interpretation Comments Calcium Lvl (test code = Calcium Lvl) 9.5 8.5-10.5 [place] 999032-02-28 02:07:26 Test Item Value Reference Range Interpretation Comments AGAP (test code = AGAP) 7.7 10.0-20.0 [place] 999032-02-28 02:07:26 Test Item Value Reference Range Interpretation Comments eGFR (test code = eGFR) 72 [place] 714272-02-28 02:07:26 Test Item Value Reference Range Interpretation Comments WBC X 10x3 (test code = WBC X 10x3) 7.4 3.7-10.4 [place] 714272-02-28 02:07:26 Test Item Value Reference Range Interpretation Comments RBC X 10x6 (test code = RBC X 10x6) 5.06 4.70-6.10 [place] 714272-02-28 02:07:26 Test Item Value Reference Range Interpretation Comments Hgb (test code = Hgb) 14.0 14.0-18.0 [place] [address]-02-28 02:07:26 Test Item Value Reference Range Interpretation Comments Hct (test code = Hct) 43.5 42.0-54.0 [place] [address]-02-28 02:07:26 Test Item Value Reference Range Interpretation Comments MCV (test code = MCV) 85.9 80.0-94.0 [place] [address]-02-28 02:07:26 Test Item Value Reference Range Interpretation Comments MCH (test code = MCH) 27.7 pg 27.0-31.0 [place] 714272-02-28 02:07:26 Test Item Value Reference Range Interpretation Comments MCHC (test code = MCHC) 32.3 32.0-36.0 [place] 714272-02-28 02:07:26 Test Item Value Reference Range Interpretation Comments RDW (test code = RDW) 13.9 11.5-14.5 [place] 714272-02-28 02:07:26 Test Item Value Reference Range Interpretation Comments Platelet (test code = Platelet) 192 133-450 [place] 714272-02-28 02:07:26 Test Item Value Reference Range Interpretation Comments MPV (test code = MPV) 9.1 7.4-10.4 [place] [address]-02-28 02:07:26 Test Item Value Reference Range Interpretation Comments ACT (TEG) Rapid (test code = ACT (TEG) 128 s 86-118 Rapid) [place] 714272-02-28 02:07:26 Test Item Value Reference Range Interpretation Comments Split Point Rapid (test code = Split 0.7 min Point Rapid) [place] 714272-02-28 02:07:26 Test Item Value Reference Range Interpretation Comments R-time Rapid (test code = R-time 0.8 min 0.4-0.7 Rapid) [place] [address]-02-28 02:07:26 Test Item Value Reference Range Interpretation Comments K-time Rapid (test code = K-time 1.1 min 0.6-2.3 Rapid) [place] 714272-02-28 02:07:26 Test Item Value Reference Range Interpretation Comments Angle Rapid (test code = Angle 76 degrees 64-80 Rapid) [place] 714272-02-28 02:07:26 Test Item Value Reference Range Interpretation Comments Max Amplitude Rapid (test code = Max 71 mm 52-71 Amplitude Rapid) [place] 714272-02-28 02:07:26 Test Item Value Reference Range Interpretation Comments G-value Rapid (test code = G-value 12.1 5.0-11.6 Rapid) [place] 714272-02-28 02:07:26 Test Item Value Reference Range Interpretation Comments Estimated % Lysis Rapid (test code = 0.8 <=7.5 Estimated % Lysis Rapid) [place] 714272-02-28 02:07:26 Test Item Value Reference Range Interpretation Comments PT (test code = PT) 12.5 s 12.0-14.7 [place] 714272-02-28 02:07:26 Test Item Value Reference Range Interpretation Comments INR (test code = INR) 0.94 1 0.85-1.17 [place] 714272-02-28 02:07:26 Test Item Value Reference Range Interpretation Comments PTT (test code = PTT) 29.6 s 22.9-35.8 [place] 714272-02-28 02:07:26 Test Item Value Reference Range Interpretation Comments Segs (test code = Segs) 57.2 45.0-75.0 [place] [address]-02-28 02:07:26 Test Item Value Reference Range Interpretation Comments Lymphocytes (test code = Lymphocytes) 30.9 20.0-40.0 [place] 714272-02-28 02:07:26 Test Item Value Reference Range Interpretation Comments Monocytes (test code = Monocytes) 5.6 2.0-12.0 [place] 714272-02-28 02:07:26 Test Item Value Reference Range Interpretation Comments Eosinophils (test code = Eosinophils) 5.6 <=4.0 [place] 714272-02-28 02:07:26 Test Item Value Reference Range Interpretation Comments Basophils (test code = Basophils) 0.7 <=1.0 [place] [address]-02-28 02:07:26 Test Item Value Reference Range Interpretation Comments Neutrophils # (test code = Neutrophils 4.3 1.5-8.1 #) [place] 714272-02-28 02:07:26 Test Item Value Reference Range Interpretation Comments Lymphocytes # (test code = Lymphocytes 2.3 1.0-5.5 #) [place] [address]-02-28 02:07:26 Test Item Value Reference Range Interpretation Comments Monocytes # (test code = Monocytes #) 0.4 <=0.8 [place] 714272-02-28 02:07:26 Test Item Value Reference Range Interpretation Comments Eosinophils # (test code = Eosinophils 0.4 <=0.5 #) [facility] AmericaFzecdjjEKRFMAMIJO7440-27-80 02:07:26 Test Item Value Reference Range Interpretation Comments Coronavirus (COVID-19) Not Detected (10/08/21 LIZBETH (test code = 8:07 PM) Coronavirus (COVID-19) LIZBETH) [facility] [id number] 01:55:00 Test Item Value Reference Range Interpretation Comments ABO/Rh (test code = ABO/Rh) O POS [facility] [id number] 01:55:00 Test Item Value Reference Range Interpretation Comments Antibody Scrn (test Negative (10/08/21 7:55 code = Antibody Scrn) PM) [facility] [id number] 01:55:00 Test Item Value Reference Range Interpretation Comments ABO/Rh (test code = ABO/Rh) O POS [facility] [id number] 01:55:00 Test Item Value Reference Range Interpretation Comments Antibody Scrn (test Negative (10/08/21 7:55 code = Antibody Scrn) PM) [facility] [id number] 01:55:00 Test Item Value Reference Range Interpretation Comments ABO/Rh (test code = ABO/Rh) O POS [facility] [id number] 01:55:00 Test Item Value Reference Range Interpretation Comments Antibody Scrn (test Negative (10/08/21 7:55 code = Antibody Scrn) PM) [facility]2022-02-22 19:46:00 Test Item Value Reference Range Interpretation Comments Glucose Lvl (test code = Glucose Lvl) 133 70-99 [facility]2022-02-22 19:46:00 Test Item Value Reference Range Interpretation Comments BUN (test code = BUN) 14 7-22 [facility]2022-02-22 19:46:00 Test Item Value Reference Range Interpretation Comments Creatinine Lvl (test code = Creatinine 1.22 0.50-1.40 Lvl) [facility]2022-02-22 19:46:00 Test Item Value Reference Range Interpretation Comments Sodium Lvl (test code = Sodium Lvl) 138 135-145 [facility]2022-02-22 19:46:00 Test Item Value Reference Range Interpretation Comments Potassium Lvl (test code = Potassium 4.1 3.5-5.1 Lvl) [facility]2022-02-22 19:46:00 Test Item Value Reference Range Interpretation Comments Chloride Lvl (test code = Chloride Lvl) 108 95-109 [place] 999032-02-22 19:46:00 Test Item Value Reference Range Interpretation Comments CO2 (test code = CO2) 26 24-32 [place] 999032-02-22 19:46:00 Test Item Value Reference Range Interpretation Comments Calcium Lvl (test code = Calcium Lvl) 8.6 8.5-10.5 [place] 999032-02-22 19:46:00 Test Item Value Reference Range Interpretation Comments AGAP (test code = AGAP) 8.1 10.0-20.0 [place] 999032-02-22 19:46:00 Test Item Value Reference Range Interpretation Comments eGFR (test code = eGFR) 73 [place] 714272-02-22 19:46:00 Test Item Value Reference Range Interpretation Comments WBC (test code = WBC) 6.2 3.7-10.4 [place] 714272-02-22 19:46:00 Test Item Value Reference Range Interpretation Comments RBC (test code = RBC) 4.91 4.70-6.10 [place] 714272-02-22 19:46:00 Test Item Value Reference Range Interpretation Comments Hgb (test code = Hgb) 13.7 14.0-18.0 [place] [address]-02-22 19:46:00 Test Item Value Reference Range Interpretation Comments Hct (test code = Hct) 42.1 42.0-54.0 [place] 714272-02-22 19:46:00 Test Item Value Reference Range Interpretation Comments MCV (test code = MCV) 85.8 80.0-94.0 [place] [address]-02-22 19:46:00 Test Item Value Reference Range Interpretation Comments MCH (test code = MCH) 27.9 pg 27.0-31.0 [place] [address]-02-22 19:46:00 Test Item Value Reference Range Interpretation Comments MCHC (test code = MCHC) 32.6 32.0-36.0 [place] 714272-02-22 19:46:00 Test Item Value Reference Range Interpretation Comments RDW (test code = RDW) 14.3 11.5-14.5 [place] 714272-02-22 19:46:00 Test Item Value Reference Range Interpretation Comments Platelet (test code = Platelet) 153 133-450 [place] 714272-02-22 19:46:00 Test Item Value Reference Range Interpretation Comments MPV (test code = MPV) 9.5 7.4-10.4 [place] 714272-02-22 19:46:00 Test Item Value Reference Range Interpretation Comments PT (test code = PT) 12.2 s 12.0-14.7 [place] [address]-02-22 19:46:00 Test Item Value Reference Range Interpretation Comments INR (test code = INR) 0.91 1 0.85-1.17 [place] [address]-02-22 19:46:00 Test Item Value Reference Range Interpretation Comments PTT (test code = PTT) 27.1 s 22.9-35.8 [place] 714272-02-22 19:46:00 Test Item Value Reference Range Interpretation Comments Plt Morph (test code = Normal (10/03/21 1:46 Plt Morph) PM) [place] 714272-02-22 19:46:00 Test Item Value Reference Range Interpretation Comments Segs (test code = Segs) 83.7 45.0-75.0 [place] 714272-02-22 19:46:00 Test Item Value Reference Range Interpretation Comments Lymphocytes (test code = Lymphocytes) 12.3 20.0-40.0 [place] 714272-02-22 19:46:00 Test Item Value Reference Range Interpretation Comments Monocytes (test code = Monocytes) 1.6 2.0-12.0 [place] [address]-02-22 19:46:00 Test Item Value Reference Range Interpretation Comments Eosinophils (test code = 2.0 See_Comment [A utomated message] The Eosinophils) system which ge nerated this result tra nsmitted reference range : <=4.0. The reference r caleb was not used to int erpret this result as normal/abnormal . [place] 714272-02-22 19:46:00 Test Item Value Reference Range Interpretation Comments Basophils (test code = 0.4 See_Comment [Aut omated message] The Basophils) system which ge nerated this result tra nsmitted reference range : <=1.0. The reference r caleb was not used to int erpret this result as normal/abnormal . [place] 714272-02-22 19:46:00 Test Item Value Reference Range Interpretation Comments Neutrophils # (test code = Neutrophils 5.2 1.5-8.1 #) [place] 714272-02-22 19:46:00 Test Item Value Reference Range Interpretation Comments Lymphocytes # (test code = Lymphocytes 0.8 1.0-5.5 #) [place] 714272-02-22 19:46:00 Test Item Value Reference Range Interpretation Comments Monocytes # (test code 0.1 See_Comment [Aut omated message] The = Monocytes #) system which generated this result tra nsmitted reference range : <=0.8. The reference r caleb was not used to int erpret this result as normal/abnormal . [place] 714272-02-22 19:46:00 Test Item Value Reference Range Interpretation Comments Eosinophils # (test code 0.1 See_Comment [A utomated message] The = Eosinophils #) system whic h generated this result tra nsmitted reference range : <=0.5. The reference r caleb was not used to int erpret this result as normal/abnormal . [facility]2022-02-22 19:46:00 Test Item Value Reference Range Interpretation Comments Glucose Lvl (test code = Glucose Lvl) 133 70-99 [place] 999032-02-22 19:46:00 Test Item Value Reference Range Interpretation Comments BUN (test code = BUN) 14 7-22 [place] 999032-02-22 19:46:00 Test Item Value Reference Range Interpretation Comments Creatinine Lvl (test code = Creatinine 1.22 0.50-1.40 Lvl) [place] 999032-02-22 19:46:00 Test Item Value Reference Range Interpretation Comments Sodium Lvl (test code = Sodium Lvl) 138 135-145 [place] 999032-02-22 19:46:00 Test Item Value Reference Range Interpretation Comments Potassium Lvl (test code = Potassium 4.1 3.5-5.1 Lvl) [place] 999032-02-22 19:46:00 Test Item Value Reference Range Interpretation Comments Chloride Lvl (test code = Chloride Lvl) 108 95-109 [place] 999032-02-22 19:46:00 Test Item Value Reference Range Interpretation Comments CO2 (test code = CO2) 26 24-32 [place] 999032-02-22 19:46:00 Test Item Value Reference Range Interpretation Comments Calcium Lvl (test code = Calcium Lvl) 8.6 8.5-10.[address] [facility]2022-02-22 19:46:00 Test Item Value Reference Range Interpretation Comments AGAP (test code = AGAP) 8.1 10.0-20.[address] [facility]2022-02-22 19:46:00 Test Item Value Reference Range Interpretation Comments eGFR (test code = eGFR) 73 [facility]iEQYTIWHNBH9513-81-14 19:46:00 Test Item Value Reference Range Interpretation Comments WBC (test code = WBC) 6.2 3.7-10.4 [place] 714272-02-22 19:46:00 Test Item Value Reference Range Interpretation Comments RBC (test code = RBC) 4.91 4.70-6.10 [facility]GubjcnnJANJNEGGFP8099-73-44 19:46:00 Test Item Value Reference Range Interpretation Comments Hgb (test code = Hgb) 13.7 14.0-18.0 [facility] HospitalUvaoveoLVMMPYLRAQ3680-74-34 19:46:00 Test Item Value Reference Range Interpretation Comments Hct (test code = Hct) 42.1 42.0-54.0 [place] 714272-02-22 19:46:00 Test Item Value Reference Range Interpretation Comments MCV (test code = MCV) 85.8 80.0-94.0 [place] 714272-02-22 19:46:00 Test Item Value Reference Range Interpretation Comments MCH (test code = MCH) 27.9 pg 27.0-31.0 [place] 714272-02-22 19:46:00 Test Item Value Reference Range Interpretation Comments MCHC (test code = MCHC) 32.6 32.0-36.0 [place] 714272-02-22 19:46:00 Test Item Value Reference Range Interpretation Comments RDW (test code = RDW) 14.3 11.5-14.5 [place] 714272-02-22 19:46:00 Test Item Value Reference Range Interpretation Comments Platelet (test code = Platelet) 153 133-450 [place] 714272-02-22 19:46:00 Test Item Value Reference Range Interpretation Comments MPV (test code = MPV) 9.5 7.4-10.4 [place] 714272-02-22 19:46:00 Test Item Value Reference Range Interpretation Comments PT (test code = PT) 12.2 s 12.0-14.7 [place] [address]-02-22 19:46:00 Test Item Value Reference Range Interpretation Comments INR (test code = INR) 0.91 1 0.85-1.17 [place] [address]-02-22 19:46:00 Test Item Value Reference Range Interpretation Comments PTT (test code = PTT) 27.1 s 22.9-35.8 [address]02-22 19:46:00 Test Item Value Reference Range Interpretation Comments Plt Morph (test code = Normal (10/03/21 1:46 Plt Morph) PM) [place] [address]-02-22 19:46:00 Test Item Value Reference Range Interpretation Comments Segs (test code = Segs) 83.7 45.0-75.0 [place] 714272-02-22 19:46:00 Test Item Value Reference Range Interpretation Comments Lymphocytes (test code = Lymphocytes) 12.3 20.0-40.0 [place] 714272-02-22 19:46:00 Test Item Value Reference Range Interpretation Comments Monocytes (test code = Monocytes) 1.6 2.0-12.0 [place] [address]-02-22 19:46:00 Test Item Value Reference Range Interpretation Comments Eosinophils (test code = 2.0 See_Comment [A utomated message] The Eosinophils) system which ge nerated this result tra nsmitted reference range : <=4.0. The reference r caleb was not used to int erpret this result as normal/abnormal . [place] 714272-02-22 19:46:00 Test Item Value Reference Range Interpretation Comments Basophils (test code = 0.4 See_Comment [Aut omated message] The Basophils) system which ge nerated this result tra nsmitted reference range : <=1.0. The reference r caleb was not used to int erpret this result as normal/abnormal . [place] 714272-02-22 19:46:00 Test Item Value Reference Range Interpretation Comments Neutrophils # (test code = Neutrophils 5.2 1.5-8.1 #) [place] 714272-02-22 19:46:00 Test Item Value Reference Range Interpretation Comments Lymphocytes # (test code = Lymphocytes 0.8 1.0-5.5 #) [place] 714272-02-22 19:46:00 Test Item Value Reference Range Interpretation Comments Monocytes # (test code 0.1 See_Comment [Aut omated message] The = Monocytes #) system which generated this result tra nsmitted reference range : <=0.8. The reference r caleb was not used to int erpret this result as normal/abnormal . [place] 714272-02-22 19:46:00 Test Item Value Reference Range Interpretation Comments Eosinophils # (test code 0.1 See_Comment [A utomated message] The = Eosinophils #) system whic h generated this result tra nsmitted reference range : <=0.5. The reference r caleb was not used to int erpret this result as normal/abnormal . [facility]2022-02-22 19:46:00 Test Item Value Reference Range Interpretation Comments Glucose Lvl (test code = Glucose Lvl) 133 70-99 [place] 999032-02-22 19:46:00 Test Item Value Reference Range Interpretation Comments BUN (test code = BUN) 14 7-22 [place] 999032-02-22 19:46:00 Test Item Value Reference Range Interpretation Comments Creatinine Lvl (test code = Creatinine 1.22 0.50-1.40 Lvl) [place] 999032-02-22 19:46:00 Test Item Value Reference Range Interpretation Comments Sodium Lvl (test code = Sodium Lvl) 138 135-145 [place] 999032-02-22 19:46:00 Test Item Value Reference Range Interpretation Comments Potassium Lvl (test code = Potassium 4.1 3.5-5.1 Lvl) [place] 999032-02-22 19:46:00 Test Item Value Reference Range Interpretation Comments Chloride Lvl (test code = Chloride Lvl) 108 95-[address] [facility]2022-02-22 19:46:00 Test Item Value Reference Range Interpretation Comments CO2 (test code = CO2) 26 24-32 [place] 999032-02-22 19:46:00 Test Item Value Reference Range Interpretation Comments Calcium Lvl (test code = Calcium Lvl) 8.6 8.5-10.5 [place] 999032-02-22 19:46:00 Test Item Value Reference Range Interpretation Comments AGAP (test code = AGAP) 8.1 10.0-20.[address] [facility]2022-02-22 19:46:00 Test Item Value Reference Range Interpretation Comments eGFR (test code = eGFR) 73 [facility]ge[facility]ZBNTWMVGX5783-73-31 19:46:00 Test Item Value Reference Range Interpretation Comments WBC (test code = WBC) 6.2 3.7-10.4 [place] 714272-02-22 19:46:00 Test Item Value Reference Range Interpretation Comments RBC (test code = RBC) 4.91 4.70-6.10 [place] 714272-02-22 19:46:00 Test Item Value Reference Range Interpretation Comments Hgb (test code = Hgb) 13.7 14.0-18.0 [place] 714272-02-22 19:46:00 Test Item Value Reference Range Interpretation Comments Hct (test code = Hct) 42.1 42.0-54.0 [place] 714272-02-22 19:46:00 Test Item Value Reference Range Interpretation Comments MCV (test code = MCV) 85.8 80.0-94.0 [place] 714272-02-22 19:46:00 Test Item Value Reference Range Interpretation Comments MCH (test code = MCH) 27.9 pg 27.0-31.0 [place] 714272-02-22 19:46:00 Test Item Value Reference Range Interpretation Comments MCHC (test code = MCHC) 32.6 32.0-36.0 [place] 714272-02-22 19:46:00 Test Item Value Reference Range Interpretation Comments RDW (test code = RDW) 14.3 11.5-14.5 [place] 714272-02-22 19:46:00 Test Item Value Reference Range Interpretation Comments Platelet (test code = Platelet) 153 133-450 [place] 714272-02-22 19:46:00 Test Item Value Reference Range Interpretation Comments MPV (test code = MPV) 9.5 7.4-10.4 [place] 714272-02-22 19:46:00 Test Item Value Reference Range Interpretation Comments PT (test code = PT) 12.2 s 12.0-14.7 [place] 714272-02-22 19:46:00 Test Item Value Reference Range Interpretation Comments INR (test code = INR) 0.91 1 0.85-1.17 [place] 714272-02-22 19:46:00 Test Item Value Reference Range Interpretation Comments PTT (test code = PTT) 27.1 s 22.9-35.8 [place] 714272-02-22 19:46:00 Test Item Value Reference Range Interpretation Comments Plt Morph (test code = Normal (10/03/21 1:46 Plt Morph) PM) [id number] 19:46:00 Test Item Value Reference Range Interpretation Comments Segs (test code = Segs) 83.7 45.0-75.0 [facility]AwxljsdTWXSEHAFNI4367-39-81 19:46:00 Test Item Value Reference Range Interpretation Comments Lymphocytes (test code = Lymphocytes) 12.3 20.0-40.0 [place] 714272-02-22 19:46:00 Test Item Value Reference Range Interpretation Comments Monocytes (test code = Monocytes) 1.6 2.0-12.0 [place] [address]-02-22 19:46:00 Test Item Value Reference Range Interpretation Comments Eosinophils (test code = Eosinophils) 2.0 <=4.0 [place] 714272-02-22 19:46:00 Test Item Value Reference Range Interpretation Comments Basophils (test code = Basophils) 0.4 <=1.0 [place] 714272-02-22 19:46:00 Test Item Value Reference Range Interpretation Comments Neutrophils # (test code = Neutrophils 5.2 1.5-8.1 #) [facility] HospitalVnjhqqqBCTBCASQMB2711-28-93 19:46:00 Test Item Value Reference Range Interpretation Comments Lymphocytes # (test code = Lymphocytes 0.8 1.0-5.5 #) [facility] AmericaNumhrbaETVAVFWKEB6994-14-13 19:46:00 Test Item Value Reference Range Interpretation Comments Monocytes # (test code = Monocytes #) 0.1 <=0.8 [facility]ApxjfayWMXOEOHMXH0845-94-97 19:46:00 Test Item Value Reference Range Interpretation Comments Eosinophils # (test code = Eosinophils 0.1 <=0.5 #) [facility] America[facility] [id number] 17:31:00 Test Item Value Reference Range Interpretation Comments ABO/Rh (test code = ABO/Rh) O POS [facility]ain[facility] [id number] 17:31:00 Test Item Value Reference Range Interpretation Comments Antibody Scrn (test Negative (10/02/21 code = Antibody Scrn) 11:31 AM) [facility] AmericaZ[facility]ie [id number] 17:31:00 Test Item Value Reference Range Interpretation Comments Glucose Lvl (test code = Glucose Lvl) 92 70-99 [facility] America[facility] [id number] 17:31:00 Test Item Value Reference Range Interpretation Comments BUN (test code = BUN) 03-02 [facility] [id number] 17:31:00 Test Item Value Reference Range Interpretation Comments Creatinine Lvl (test code = Creatinine 1.21 0.50-1.40 Lvl) [facility] America[facility] [id number] 17:31:00 Test Item Value Reference Range Interpretation Comments Sodium Lvl (test code = Sodium Lvl) 140 135-145 [facility] [id number] 17:31:00 Test Item Value Reference Range Interpretation Comments Potassium Lvl (test code = Potassium 4.2 3.5-5.1 Lvl) [facility] [id number] 17:31:00 Test Item Value Reference Range Interpretation Comments Chloride Lvl (test code = Chloride Lvl) 108 95-109 [facility] [id number] 17:31:00 Test Item Value Reference Range Interpretation Comments CO2 (test code = CO2) - [facility] America[facility] [id number] 17:31:00 Test Item Value Reference Range Interpretation Comments Calcium Lvl (test code = Calcium Lvl) 9.4 8.5-10.[address] [facility]2022-02-21 17:31:00 Test Item Value Reference Range Interpretation Comments AGAP (test code = AGAP) 10.2 10.0-20.0 [facility] [id number] 17:31:00 Test Item Value Reference Range Interpretation Comments eGFR (test code = eGFR) 74 [place] 714272-02-21 17:31:00 Test Item Value Reference Range Interpretation Comments PTT (test code = PTT) 28.1 s 22.9-35.8 [place] 714272-02-21 17:31:00 Test Item Value Reference Range Interpretation Comments PT (test code = PT) 11.8 s 12.0-14.7 [place] 714272-02-21 17:31:00 Test Item Value Reference Range Interpretation Comments INR (test code = INR) 0.87 1 0.85-1.17 [place] 714272-02-21 17:31:00 Test Item Value Reference Range Interpretation Comments WBC (test code = WBC) 5.4 3.7-10.4 [place] 714272-02-21 17:31:00 Test Item Value Reference Range Interpretation Comments RBC (test code = RBC) 4.90 4.70-6.10 [place] 714272-02-21 17:31:00 Test Item Value Reference Range Interpretation Comments Hgb (test code = Hgb) 13.7 14.0-18.0 [place] [address]-02-21 17:31:00 Test Item Value Reference Range Interpretation Comments Hct (test code = Hct) 42.0 42.0-54.0 [place] [address]-02-21 17:31:00 Test Item Value Reference Range Interpretation Comments MCV (test code = MCV) 85.6 80.0-94.0 [place] [address]-02-21 17:31:00 Test Item Value Reference Range Interpretation Comments MCH (test code = MCH) 27.9 pg 27.0-31.0 [place] 714272-02-21 17:31:00 Test Item Value Reference Range Interpretation Comments MCHC (test code = MCHC) 32.6 32.0-36.0 [place] 714272-02-21 17:31:00 Test Item Value Reference Range Interpretation Comments RDW (test code = RDW) 14.1 11.5-14.5 [place] 714272-02-21 17:31:00 Test Item Value Reference Range Interpretation Comments Platelet (test code = Platelet) 173 133-450 [place] 714272-02-21 17:31:00 Test Item Value Reference Range Interpretation Comments MPV (test code = MPV) 10.1 7.4-10.4 [place] 714272-02-21 17:31:00 Test Item Value Reference Range Interpretation Comments Segs (test code = Segs) 54.1 45.0-75.0 [place] 714272-02-21 17:31:00 Test Item Value Reference Range Interpretation Comments Lymphocytes (test code = Lymphocytes) 30.9 20.0-40.0 [place] 714272-02-21 17:31:00 Test Item Value Reference Range Interpretation Comments Monocytes (test code = Monocytes) 6.7 2.0-12.0 [place] 714272-02-21 17:31:00 Test Item Value Reference Range Interpretation Comments Eosinophils (test code = 7.7 See_Comment [A utomated message] The Eosinophils) system which ge nerated this result tra nsmitted reference range : <=4.0. The reference r caleb was not used to int erpret this result as normal/abnormal . [place] 714272-02-21 17:31:00 Test Item Value Reference Range Interpretation Comments Basophils (test code = 0.6 See_Comment [Aut omated message] The Basophils) system which ge nerated this result tra nsmitted reference range : <=1.0. The reference r caleb was not used to int erpret this result as normal/abnormal . [place] 714272-02-21 17:31:00 Test Item Value Reference Range Interpretation Comments Neutrophils # (test code = Neutrophils 2.9 1.5-8.1 #) [place] 714272-02-21 17:31:00 Test Item Value Reference Range Interpretation Comments Lymphocytes # (test code = Lymphocytes 1.7 1.0-5.5 #) [place] 714272-02-21 17:31:00 Test Item Value Reference Range Interpretation Comments Monocytes # (test code 0.4 See_Comment [Aut omated message] The = Monocytes #) system which generated this result tra nsmitted reference range : <=0.8. The reference r caleb was not used to int erpret this result as normal/abnormal . [facility] AmericaPeysnjeSUDYEXMLWV4166-10-07 17:31:00 Test Item Value Reference Range Interpretation Comments Eosinophils # (test code 0.4 See_Comment [A utomated message] The = Eosinophils #) system whic h generated this result tra nsmitted reference range : <=0.5. The reference r caleb was not used to int erpret this result as normal/abnormal . [facility] H[id number] 17:31:00 Test Item Value Reference Range Interpretation Comments Coronavirus (COVID-19) Not Detected (10/02/21 LIZBETH (test code = 11:31 AM) Coronavirus (COVID-19) LIZBETH) [facility] [id number] 17:31:00 Test Item Value Reference Range Interpretation Comments Hgb A1C (test code = Hgb A1C) 5.[address] [facility] [employer] [id number] 17:31:00 Test Item Value Reference Range Interpretation Comments ABO/Rh (test code = ABO/Rh) O POS [facility] [employer] [id number] 17:31:00 Test Item Value Reference Range Interpretation Comments Antibody Scrn (test Negative (10/02/21 code = Antibody Scrn) 11:31 AM) [facility] [employer]2022-02-21 17:31:00 Test Item Value Reference Range Interpretation Comments Glucose Lvl (test code = Glucose Lvl) 92 70-[address] [facility] [employer]2022-02-21 17:31:00 Test Item Value Reference Range Interpretation Comments BUN (test code = BUN) 17 - [employer]2022-02-21 17:31:00 Test Item Value Reference Range Interpretation Comments Creatinine Lvl (test code = Creatinine 1.21 0.50-1.40 Lvl) [employer]2022-02-21 17:31:00 Test Item Value Reference Range Interpretation Comments Sodium Lvl (test code = Sodium Lvl) 140 135-[address] [facility] [employer]2022-02-21 17:31:00 Test Item Value Reference Range Interpretation Comments Potassium Lvl (test code = Potassium 4.2 3.5-5.1 Lvl) [place] 999032-02-21 17:31:00 Test Item Value Reference Range Interpretation Comments Chloride Lvl (test code = Chloride Lvl) 108 95-109 [place] 999032-02-21 17:31:00 Test Item Value Reference Range Interpretation Comments CO2 (test code = CO2) 26 24-32 [address]02-21 17:31:00 Test Item Value Reference Range Interpretation Comments Calcium Lvl (test code = Calcium Lvl) 9.4 8.5-10.5 [place] 999032-02-21 17:31:00 Test Item Value Reference Range Interpretation Comments AGAP (test code = AGAP) 10.2 10.0-20.0 [place] 999032-02-21 17:31:00 Test Item Value Reference Range Interpretation Comments eGFR (test code = eGFR) 74 [place] 714272-02-21 17:31:00 Test Item Value Reference Range Interpretation Comments PTT (test code = PTT) 28.1 s 22.9-35.8 [place] [address]-02-21 17:31:00 Test Item Value Reference Range Interpretation Comments PT (test code = PT) 11.8 s 12.0-14.7 [place] [address]-02-21 17:31:00 Test Item Value Reference Range Interpretation Comments INR (test code = INR) 0.87 1 0.85-1.17 [place] [address]-02-21 17:31:00 Test Item Value Reference Range Interpretation Comments WBC (test code = WBC) 5.4 3.7-10.4 [place] [address]-02-21 17:31:00 Test Item Value Reference Range Interpretation Comments RBC (test code = RBC) 4.90 4.70-6.10 [place] [address]-02-21 17:31:00 Test Item Value Reference Range Interpretation Comments Hgb (test code = Hgb) 13.7 14.0-18.0 [address]02-21 17:31:00 Test Item Value Reference Range Interpretation Comments Hct (test code = Hct) 42.0 42.0-54.0 [place] [address]-02-21 17:31:00 Test Item Value Reference Range Interpretation Comments MCV (test code = MCV) 85.6 80.0-94.0 [place] 714272-02-21 17:31:00 Test Item Value Reference Range Interpretation Comments MCH (test code = MCH) 27.9 pg 27.0-31.0 [place] 714272-02-21 17:31:00 Test Item Value Reference Range Interpretation Comments MCHC (test code = MCHC) 32.6 32.0-36.0 [place] 714272-02-21 17:31:00 Test Item Value Reference Range Interpretation Comments RDW (test code = RDW) 14.1 11.5-14.5 [place] 714272-02-21 17:31:00 Test Item Value Reference Range Interpretation Comments Platelet (test code = Platelet) 173 133-450 [place] 714272-02-21 17:31:00 Test Item Value Reference Range Interpretation Comments MPV (test code = MPV) 10.1 7.4-10.4 [place] 714272-02-21 17:31:00 Test Item Value Reference Range Interpretation Comments Segs (test code = Segs) 54.1 45.0-75.0 [place] 714272-02-21 17:31:00 Test Item Value Reference Range Interpretation Comments Lymphocytes (test code = Lymphocytes) 30.9 20.0-40.0 [place] 714272-02-21 17:31:00 Test Item Value Reference Range Interpretation Comments Monocytes (test code = Monocytes) 6.7 2.0-12.0 [place] [address]-02-21 17:31:00 Test Item Value Reference Range Interpretation Comments Eosinophils (test code = 7.7 See_Comment [A utomated message] The Eosinophils) system which ge nerated this result tra nsmitted reference range : <=4.0. The reference r caleb was not used to int erpret this result as normal/abnormal . [place] 714272-02-21 17:31:00 Test Item Value Reference Range Interpretation Comments Basophils (test code = 0.6 See_Comment [Aut omated message] The Basophils) system which ge nerated this result tra nsmitted reference range : <=1.0. The reference r caleb was not used to int erpret this result as normal/abnormal . [facility] CenterFkbrlroNNFYZFSHIX9461-30-61 17:31:00 Test Item Value Reference Range Interpretation Comments Neutrophils # (test code = Neutrophils 2.9 1.5-8.1 #) [facility] AmericaXfgsyulGLYPALBODQ5772-25-83 17:31:00 Test Item Value Reference Range Interpretation Comments Lymphocytes # (test code = Lymphocytes 1.7 1.0-5.5 #) [facility] AmericaDuxzhxmOIZPMZFYLX8839-85-72 17:31:00 Test Item Value Reference Range Interpretation Comments Monocytes # (test code 0.4 See_Comment [Aut omated message] The = Monocytes #) system which generated this result tra nsmitted reference range : <=0.8. The reference r caleb was not used to int erpret this result as normal/abnormal . [facility] AmericaUhnwrzgJZIWKORTSS4036-78-93 17:31:00 Test Item Value Reference Range Interpretation Comments Eosinophils # (test code 0.4 See_Comment [A utomated message] The = Eosinophils #) system whic h generated this result tra nsmitted reference range : <=0.5. The reference r calbe was not used to int erpret this result as normal/abnormal . [facility] CenterVtuqqsySRAHWGXYDB9307-37-78 17:31:00 Test Item Value Reference Range Interpretation Comments Coronavirus (COVID-19) Not Detected (10/02/21 LIZBETH (test code = 11:31 AM) Coronavirus (COVID-19) LIZBETH) [facility] [id number] 17:31:00 Test Item Value Reference Range Interpretation Comments Hgb A1C (test code = Hgb A1C) 5.[address] [facility] [employer] [id number] 17:31:00 Test Item Value Reference Range Interpretation Comments ABO/Rh (test code = ABO/Rh) O POS [facility] [employer] [id number] 17:31:00 Test Item Value Reference Range Interpretation Comments Antibody Scrn (test Negative (10/02/21 code = Antibody Scrn) 11:31 AM) [facility] [employer] [id number] 17:31:00 Test Item Value Reference Range Interpretation Comments Glucose Lvl (test code = Glucose Lvl) 92 70-[address] [facility] [employer] [id number] 17:31:00 Test Item Value Reference Range Interpretation Comments BUN (test code = BUN) 17 7-22 [place] 999032-02-21 17:31:00 Test Item Value Reference Range Interpretation Comments Creatinine Lvl (test code = Creatinine 1.21 0.50-1.40 Lvl) [place] 999032-02-21 17:31:00 Test Item Value Reference Range Interpretation Comments Sodium Lvl (test code = Sodium Lvl) 140 135-145 [place] 999032-02-21 17:31:00 Test Item Value Reference Range Interpretation Comments Potassium Lvl (test code = Potassium 4.2 3.5-5.1 Lvl) [place] 999032-02-21 17:31:00 Test Item Value Reference Range Interpretation Comments Chloride Lvl (test code = Chloride Lvl) 108 95-109 [place] 999032-02-21 17:31:00 Test Item Value Reference Range Interpretation Comments CO2 (test code = CO2) 26 24-32 [place] 999032-02-21 17:31:00 Test Item Value Reference Range Interpretation Comments Calcium Lvl (test code = Calcium Lvl) 9.4 8.5-10.5 [place] 999032-02-21 17:31:00 Test Item Value Reference Range Interpretation Comments AGAP (test code = AGAP) 10.2 10.0-20.0 [place] 999032-02-21 17:31:00 Test Item Value Reference Range Interpretation Comments eGFR (test code = eGFR) 74 [place] 714272-02-21 17:31:00 Test Item Value Reference Range Interpretation Comments PTT (test code = PTT) 28.1 s 22.9-35.8 [place] 714272-02-21 17:31:00 Test Item Value Reference Range Interpretation Comments PT (test code = PT) 11.8 s 12.0-14.7 [place] [address]-02-21 17:31:00 Test Item Value Reference Range Interpretation Comments INR (test code = INR) 0.87 1 0.85-1.17 [place] 714272-02-21 17:31:00 Test Item Value Reference Range Interpretation Comments WBC (test code = WBC) 5.4 3.7-10.4 [place] 714272-02-21 17:31:00 Test Item Value Reference Range Interpretation Comments RBC (test code = RBC) 4.90 4.70-6.10 [place] 714272-02-21 17:31:00 Test Item Value Reference Range Interpretation Comments Hgb (test code = Hgb) 13.7 14.0-18.0 [place] [address]-02-21 17:31:00 Test Item Value Reference Range Interpretation Comments Hct (test code = Hct) 42.0 42.0-54.0 [place] 714272-02-21 17:31:00 Test Item Value Reference Range Interpretation Comments MCV (test code = MCV) 85.6 80.0-94.0 [place] 714272-02-21 17:31:00 Test Item Value Reference Range Interpretation Comments MCH (test code = MCH) 27.9 pg 27.0-31.0 [place] 714272-02-21 17:31:00 Test Item Value Reference Range Interpretation Comments MCHC (test code = MCHC) 32.6 32.0-36.0 [place] 714272-02-21 17:31:00 Test Item Value Reference Range Interpretation Comments RDW (test code = RDW) 14.1 11.5-14.5 [place] 714272-02-21 17:31:00 Test Item Value Reference Range Interpretation Comments Platelet (test code = Platelet) 173 133-450 [place] 714272-02-21 17:31:00 Test Item Value Reference Range Interpretation Comments MPV (test code = MPV) 10.1 7.4-10.4 [place] [address]-02-21 17:31:00 Test Item Value Reference Range Interpretation Comments Segs (test code = Segs) 54.1 45.0-75.0 [place] [address]-02-21 17:31:00 Test Item Value Reference Range Interpretation Comments Lymphocytes (test code = Lymphocytes) 30.9 20.0-40.0 [place] 714272-02-21 17:31:00 Test Item Value Reference Range Interpretation Comments Monocytes (test code = Monocytes) 6.7 2.0-12.0 [place] 714272-02-21 17:31:00 Test Item Value Reference Range Interpretation Comments Eosinophils (test code = Eosinophils) 7.7 <=4.0 [facility]VettwtfPZKQLICKTY1614-81-96 17:31:00 Test Item Value Reference Range Interpretation Comments Basophils (test code = Basophils) 0.6 <=1.0 [facility]KnzkvbfQKJJDQLHFP4380-30-58 17:31:00 Test Item Value Reference Range Interpretation Comments Neutrophils # (test code = Neutrophils 2.9 1.5-8.1 #) [facility] MichiganZtvmibiVPWNIBWCBQ2153-61-21 17:31:00 Test Item Value Reference Range Interpretation Comments Lymphocytes # (test code = Lymphocytes 1.7 1.0-5.5 #) [facility] HospitalNloxlumRMKXTZVGJX5817-79-58 17:31:00 Test Item Value Reference Range Interpretation Comments Monocytes # (test code = Monocytes #) 0.4 <=0.8 [facility] HospitalPvdfniuUNYYFZDAQU7094-60-87 17:31:00 Test Item Value Reference Range Interpretation Comments Eosinophils # (test code = Eosinophils 0.4 <=0.5 #) [facility]AvkqbodRPJXPCSXDM8451-24-59 17:31:00 Test Item Value Reference Range Interpretation Comments Coronavirus (COVID-19) Not Detected (10/02/21 LIZBETH (test code = 11:31 AM) Coronavirus (COVID-19) LIZBETH) [facility]2022-02-21 17:31:00 Test Item Value Reference Range Interpretation Comments Hgb A1C (test code = Hgb A1C) 5.7 [facility] HospitalWmworltEFIPPEUGTE4613-70-39 07:37:00 Test Item Value Reference Range Interpretation Comments Sed Rate (test code = 2 See_Comment [Auto mated message] The Sed Rate) system which ge nerated this result transmit leydi reference range : <=15. The reference range was not used to interpr et this result as krishna l/abnormal. [facility] CenterSxmbedkOLAHVTVMNG1753-62-80 07:37:00 Test Item Value Reference Range Interpretation Comments C-REACTIVE PROTEIN (test code = 8.4 C-REACTIVE PROTEIN) [facility] HospitalUcuewbqBOOPSLVJOD9295-59-96 07:37:00 Test Item Value Reference Range Interpretation Comments Sed Rate (test code = 2 See_Comment [Auto mated message] The Sed Rate) system which ge nerated this result transmit leydi reference range : <=15. The reference range was not used to interpr et this result as krishna l/abnormal. [place] 639311-09-30 07:37:00 Test Item Value Reference Range Interpretation Comments C-REACTIVE PROTEIN (test code = 8.4 C-REACTIVE PROTEIN) [place] 714271-09-30 07:37:00 Test Item Value Reference Range Interpretation Comments Sed Rate (test code = Sed Rate) 2 <=15 [place] [address]-09-30 07:37:00 Test Item Value Reference Range Interpretation Comments C-REACTIVE PROTEIN (test code = 8.4 C-REACTIVE PROTEIN) [place] 999031-09-30 01:10:00 Test Item Value Reference Range Interpretation Comments Glucose Lvl (test code = Glucose Lvl) 115 70-99 [place] 999031-09-30 01:10:00 Test Item Value Reference Range Interpretation Comments BUN (test code = BUN) 13 7-22 [place] 999031-09-30 01:10:00 Test Item Value Reference Range Interpretation Comments Creatinine Lvl (test code = Creatinine 1.21 0.50-1.40 Lvl) [place] 999031-09-30 01:10:00 Test Item Value Reference Range Interpretation Comments Sodium Lvl (test code = Sodium Lvl) 141 135-145 [place] 999031-09-30 01:10:00 Test Item Value Reference Range Interpretation Comments Potassium Lvl (test code = Potassium 3.8 3.5-5.1 Lvl) [place] 999031-09-30 01:10:00 Test Item Value Reference Range Interpretation Comments Chloride Lvl (test code = Chloride Lvl) 110 95-109 [place] 999031-09-30 01:10:00 Test Item Value Reference Range Interpretation Comments CO2 (test code = CO2) 25 24-32 [place] 999031-09-30 01:10:00 Test Item Value Reference Range Interpretation Comments Calcium Lvl (test code = Calcium Lvl) 9.1 8.5-10.5 [place] 999031-09-30 01:10:00 Test Item Value Reference Range Interpretation Comments AGAP (test code = AGAP) 9.8 10.0-20.0 [place] 999031-09-30 01:10:00 Test Item Value Reference Range Interpretation Comments eGFR (test code = eGFR) 74 [facility] HospitalZuadpoqYFEDWXNSPS9665-50-35 01:10:00 Test Item Value Reference Range Interpretation Comments WBC X 10x3 (test code = WBC X 10x3) 5.9 3.7-10.4 [place] 714271-09-30 01:10:00 Test Item Value Reference Range Interpretation Comments RBC X 10x6 (test code = RBC X 10x6) 4.92 4.70-6.10 [place] 714271-09-30 01:10:00 Test Item Value Reference Range Interpretation Comments Hgb (test code = Hgb) 13.8 14.0-18.0 [place] 714271-09-30 01:10:00 Test Item Value Reference Range Interpretation Comments Hct (test code = Hct) 41.8 42.0-54.0 [place] 714271-09-30 01:10:00 Test Item Value Reference Range Interpretation Comments MCV (test code = MCV) 84.9 80.0-94.0 [place] 714271-09-30 01:10:00 Test Item Value Reference Range Interpretation Comments MCH (test code = MCH) 28.0 pg 27.0-31.0 [place] 714271-09-30 01:10:00 Test Item Value Reference Range Interpretation Comments MCHC (test code = MCHC) 33.0 32.0-36.0 [place] 714271-09-30 01:10:00 Test Item Value Reference Range Interpretation Comments RDW (test code = RDW) 14.0 11.5-14.5 [place] 714271-09-30 01:10:00 Test Item Value Reference Range Interpretation Comments Platelet (test code = Platelet) 171 133-450 [facility] HospitalDphxmmpFPDBWKXMQN0472-20-98 01:10:00 Test Item Value Reference Range Interpretation Comments MPV (test code = MPV) 8.8 7.4-10.4 [place] 714271-09-30 01:10:00 Test Item Value Reference Range Interpretation Comments Segs (test code = Segs) 42.2 45.0-75.0 [place] 714271-09-30 01:10:00 Test Item Value Reference Range Interpretation Comments Lymphocytes (test code = Lymphocytes) 37.9 20.0-40.0 [place] 714271-09-30 01:10:00 Test Item Value Reference Range Interpretation Comments Monocytes (test code = Monocytes) 7.0 2.0-12.0 [place] 714271-09-30 01:10:00 Test Item Value Reference Range Interpretation Comments Eosinophils (test code = 11.6 See_Comment [A utomated message] The Eosinophils) system which ge nerated this result tra nsmitted reference range : <=4.0. The reference r caleb was not used to int erpret this result as normal/abnormal . [place] 714271-09-30 01:10:00 Test Item Value Reference Range Interpretation Comments Basophils (test code = 1.3 See_Comment [Aut omated message] The Basophils) system which ge nerated this result tra nsmitted reference range : <=1.0. The reference r caleb was not used to int erpret this result as normal/abnormal . [place] 714271-09-30 01:10:00 Test Item Value Reference Range Interpretation Comments Neutrophils # (test code = Neutrophils 2.5 1.5-8.1 #) [facility]JRBPQSVVJK5534-80-99 01:10:00 Test Item Value Reference Range Interpretation Comments Lymphocytes # (test code = Lymphocytes 2.2 1.0-5.5 #) [facility] HospitalAmeyoyiSSSIJLQLER8528-23-27 01:10:00 Test Item Value Reference Range Interpretation Comments Monocytes # (test code 0.4 See_Comment [Aut omated message] The = Monocytes #) system which generated this result tra nsmitted reference range : <=0.8. The reference r caleb was not used to int erpret this result as normal/abnormal . [place] 714271-09-30 01:10:00 Test Item Value Reference Range Interpretation Comments Eosinophils # (test code 0.7 See_Comment [A utomated message] The = Eosinophils #) system whic h generated this result tra nsmitted reference range : <=0.5. The reference r caleb was not used to int erpret this result as normal/abnormal . [place] 714271-09-30 01:10:00 Test Item Value Reference Range Interpretation Comments Basophils # (test code 0.1 See_Comment [Aut omated message] The = Basophils #) system which generated this result tra nsmitted reference range : <=0.2. The reference r caleb was not used to int erpret this result as normal/abnormal . [place] 999031-09-30 01:10:00 Test Item Value Reference Range Interpretation Comments Glucose Lvl (test code = Glucose Lvl) 115 70-99 [place] 999031-09-30 01:10:00 Test Item Value Reference Range Interpretation Comments BUN (test code = BUN) 13 7-22 [place] 999031-09-30 01:10:00 Test Item Value Reference Range Interpretation Comments Creatinine Lvl (test code = Creatinine 1.21 0.50-1.40 Lvl) [place] 999031-09-30 01:10:00 Test Item Value Reference Range Interpretation Comments Sodium Lvl (test code = Sodium Lvl) 141 135-145 [place] 999031-09-30 01:10:00 Test Item Value Reference Range Interpretation Comments Potassium Lvl (test code = Potassium 3.8 3.5-5.1 Lvl) [place] 999031-09-30 01:10:00 Test Item Value Reference Range Interpretation Comments Chloride Lvl (test code = Chloride Lvl) 110 95-109 [place] 999031-09-30 01:10:00 Test Item Value Reference Range Interpretation Comments CO2 (test code = CO2) 25 24-32 [place] 999031-09-30 01:10:00 Test Item Value Reference Range Interpretation Comments Calcium Lvl (test code = Calcium Lvl) 9.1 8.5-10.5 [place] 999031-09-30 01:10:00 Test Item Value Reference Range Interpretation Comments AGAP (test code = AGAP) 9.8 10.0-20.0 [place] 999031-09-30 01:10:00 Test Item Value Reference Range Interpretation Comments eGFR (test code = eGFR) 74 [place] 714271-09-30 01:10:00 Test Item Value Reference Range Interpretation Comments WBC X 10x3 (test code = WBC X 10x3) 5.9 3.7-10.4 [place] 714271-09-30 01:10:00 Test Item Value Reference Range Interpretation Comments RBC X 10x6 (test code = RBC X 10x6) 4.92 4.70-6.10 [facility] HospitalBlmovgdCVMWZLLEYQ5385-78-63 01:10:00 Test Item Value Reference Range Interpretation Comments Hgb (test code = Hgb) 13.8 14.0-18.0 [facility] HospitalTcawgqcOSWYDXREXT5370-74-20 01:10:00 Test Item Value Reference Range Interpretation Comments Hct (test code = Hct) 41.8 42.0-54.0 [facility] HospitalWhuswbdATEJWJLVAK3845-25-77 01:10:00 Test Item Value Reference Range Interpretation Comments MCV (test code = MCV) 84.9 80.0-94.0 [facility] HospitalBeymxbnLVEONZRNFL8397-12-06 01:10:00 Test Item Value Reference Range Interpretation Comments MCH (test code = MCH) 28.0 pg 27.0-31.0 [facility] HospitalTpngnakKBOYWBIWVV9795-99-50 01:10:00 Test Item Value Reference Range Interpretation Comments MCHC (test code = MCHC) 33.0 32.0-36.0 [facility] HospitalEbzlevsNNOIBRHSRB6633-36-07 01:10:00 Test Item Value Reference Range Interpretation Comments RDW (test code = RDW) 14.0 11.5-14.5 [facility] HospitalDqqvawpOECNWBJZWT5900-14-39 01:10:00 Test Item Value Reference Range Interpretation Comments Platelet (test code = Platelet) 171 133-450 [facility] HospitalUxljpgrNANWYFZHCY0435-11-52 01:10:00 Test Item Value Reference Range Interpretation Comments MPV (test code = MPV) 8.8 7.4-10.4 [place] 714271-09-30 01:10:00 Test Item Value Reference Range Interpretation Comments Segs (test code = Segs) 42.2 45.0-75.0 [facility] HospitalLuouamuNWEPVLKVIK7013-25-26 01:10:00 Test Item Value Reference Range Interpretation Comments Lymphocytes (test code = Lymphocytes) 37.9 20.0-40.0 [place] 714271-09-30 01:10:00 Test Item Value Reference Range Interpretation Comments Monocytes (test code = Monocytes) 7.0 2.0-12.0 [place] 714271-09-30 01:10:00 Test Item Value Reference Range Interpretation Comments Eosinophils (test code = 11.6 See_Comment [A utomated message] The Eosinophils) system which ge nerated this result tra nsmitted reference range : <=4.0. The reference r caleb was not used to int erpret this result as normal/abnormal . [place] 714271-09-30 01:10:00 Test Item Value Reference Range Interpretation Comments Basophils (test code = 1.3 See_Comment [Aut omated message] The Basophils) system which ge nerated this result tra nsmitted reference range : <=1.0. The reference r caleb was not used to int erpret this result as normal/abnormal . [place] 714271-09-30 01:10:00 Test Item Value Reference Range Interpretation Comments Neutrophils # (test code = Neutrophils 2.5 1.5-8.1 #) [place] 714271-09-30 01:10:00 Test Item Value Reference Range Interpretation Comments Lymphocytes # (test code = Lymphocytes 2.2 1.0-5.5 #) [place] 714271-09-30 01:10:00 Test Item Value Reference Range Interpretation Comments Monocytes # (test code 0.4 See_Comment [Aut omated message] The = Monocytes #) system which generated this result tra nsmitted reference range : <=0.8. The reference r caleb was not used to int erpret this result as normal/abnormal . [place] 714271-09-30 01:10:00 Test Item Value Reference Range Interpretation Comments Eosinophils # (test code 0.7 See_Comment [A utomated message] The = Eosinophils #) system whic h generated this result tra nsmitted reference range : <=0.5. The reference r caleb was not used to int erpret this result as normal/abnormal . [place] 714271-09-30 01:10:00 Test Item Value Reference Range Interpretation Comments Basophils # (test code 0.1 See_Comment [Aut omated message] The = Basophils #) system which generated this result tra nsmitted reference range : <=0.2. The reference r caleb was not used to int erpret this result as normal/abnormal . [place] 999031-09-30 01:10:00 Test Item Value Reference Range Interpretation Comments Glucose Lvl (test code = Glucose Lvl) 115 70-99 [place] 999031-09-30 01:10:00 Test Item Value Reference Range Interpretation Comments BUN (test code = BUN) 13 7-22 [place] 999031-09-30 01:10:00 Test Item Value Reference Range Interpretation Comments Creatinine Lvl (test code = Creatinine 1.21 0.50-1.40 Lvl) [place] 999031-09-30 01:10:00 Test Item Value Reference Range Interpretation Comments Sodium Lvl (test code = Sodium Lvl) 141 135-145 [place] 999031-09-30 01:10:00 Test Item Value Reference Range Interpretation Comments Potassium Lvl (test code = Potassium 3.8 3.5-5.1 Lvl) [place] 999031-09-30 01:10:00 Test Item Value Reference Range Interpretation Comments Chloride Lvl (test code = Chloride Lvl) 110 95-109 [place] 999031-09-30 01:10:00 Test Item Value Reference Range Interpretation Comments CO2 (test code = CO2) 25 24-32 [place] 999031-09-30 01:10:00 Test Item Value Reference Range Interpretation Comments Calcium Lvl (test code = Calcium Lvl) 9.1 8.5-10.5 [place] 999031-09-30 01:10:00 Test Item Value Reference Range Interpretation Comments AGAP (test code = AGAP) 9.8 10.0-20.0 [place] 999031-09-30 01:10:00 Test Item Value Reference Range Interpretation Comments eGFR (test code = eGFR) 74 [place] 714271-09-30 01:10:00 Test Item Value Reference Range Interpretation Comments WBC X 10x3 (test code = WBC X 10x3) 5.9 3.7-10.4 [place] 714271-09-30 01:10:00 Test Item Value Reference Range Interpretation Comments RBC X 10x6 (test code = RBC X 10x6) 4.92 4.70-6.10 [place] 714271-09-30 01:10:00 Test Item Value Reference Range Interpretation Comments Hgb (test code = Hgb) 13.8 14.0-18.0 [place] 714271-09-30 01:10:00 Test Item Value Reference Range Interpretation Comments Hct (test code = Hct) 41.8 42.0-54.0 [facility] HospitalHlrlocvMZOJEICFGD0886-23-23 01:10:00 Test Item Value Reference Range Interpretation Comments MCV (test code = MCV) 84.9 80.0-94.0 [facility] HospitalKtinwwzJBHRBQDEEP9393-94-92 01:10:00 Test Item Value Reference Range Interpretation Comments MCH (test code = MCH) 28.0 pg 27.0-31.0 [facility] HospitalNabvnnzMNUMOIHFVV8156-02-62 01:10:00 Test Item Value Reference Range Interpretation Comments MCHC (test code = MCHC) 33.0 32.0-36.0 [facility] HospitalKucolixVKOABGQGHC1175-33-44 01:10:00 Test Item Value Reference Range Interpretation Comments RDW (test code = RDW) 14.0 11.5-14.5 [facility] HospitalOznzqecYPSUOIHVIH3906-56-91 01:10:00 Test Item Value Reference Range Interpretation Comments Platelet (test code = Platelet) 171 133-450 [facility] HospitalQkoqhdvRJIACORAHU2173-01-78 01:10:00 Test Item Value Reference Range Interpretation Comments MPV (test code = MPV) 8.8 7.4-10.4 [facility] HospitalVsevbncCGAEVIBYLJ0478-66-49 01:10:00 Test Item Value Reference Range Interpretation Comments Segs (test code = Segs) 42.2 45.0-75.0 [facility] HospitalZcsogyuLQJJXUQQDV6801-14-57 01:10:00 Test Item Value Reference Range Interpretation Comments Lymphocytes (test code = Lymphocytes) 37.9 20.0-40.0 [facility] HospitalCnqgbjiNWLCDQDFYM4132-03-62 01:10:00 Test Item Value Reference Range Interpretation Comments Monocytes (test code = Monocytes) 7.0 2.0-12.0 [facility] HospitalGumtvlwQPGANNJJDQ3671-86-56 01:10:00 Test Item Value Reference Range Interpretation Comments Eosinophils (test code = Eosinophils) 11.6 <=4.0 [facility] HospitalUcolcubUAKLDBPRWS1708-27-48 01:10:00 Test Item Value Reference Range Interpretation Comments Basophils (test code = Basophils) 1.3 <=1.0 [facility] HospitalTofyktmWSXSUGVTSQ6153-48-40 01:10:00 Test Item Value Reference Range Interpretation Comments Neutrophils # (test code = Neutrophils 2.5 1.5-8.1 #) [facility] HospitalRdiqdndPHYQWXKTFD4280-35-58 01:10:00 Test Item Value Reference Range Interpretation Comments Lymphocytes # (test code = Lymphocytes 2.2 1.0-5.5 #) [facility] HospitalUbxurevTTGKGJFYPI0516-83-77 01:10:00 Test Item Value Reference Range Interpretation Comments Monocytes # (test code = Monocytes #) 0.4 <=0.8 [place] 714271-09-30 01:10:00 Test Item Value Reference Range Interpretation Comments Eosinophils # (test code = Eosinophils 0.7 <=0.5 #) [facility] HospitalIpyyjowMRVSGHLYQO5867-93-90 01:10:00 Test Item Value Reference Range Interpretation Comments Basophils # (test code = Basophils #) 0.[address] [facility]2018-11-27 18:20:00 Test Item Value Reference Range Interpretation Comments eGFR (test code = eGFR) [address] [facility]2018-11-27 18:20:00 Test Item Value Reference Range Interpretation Comments AGAP (test code = AGAP) 4.2 10.0-20.[address] [facility]2018-11-27 18:20:00 Test Item Value Reference Range Interpretation Comments Calcium Lvl (test code = Calcium Lvl) 8.6 8.5-10.[address] [facility]2018-11-27 18:20:00 Test Item Value Reference Range Interpretation Comments CO2 (test code = CO2) 30 24-[address] [facility]2018-11-27 18:20:00 Test Item Value Reference Range Interpretation Comments Chloride Lvl (test code = Chloride Lvl) 109 95-[address] [facility]2018-11-27 18:20:00 Test Item Value Reference Range Interpretation Comments Potassium Lvl (test code = Potassium 4.2 3.5-5.1 Lvl) [facility]2018-11-27 18:20:00 Test Item Value Reference Range Interpretation Comments Sodium Lvl (test code = Sodium Lvl) 139 135-[address] [facility]2018-11-27 18:20:00 Test Item Value Reference Range Interpretation Comments Glucose Lvl (test code = Glucose Lvl) 111 70-[address] [facility]2018-11-27 18:20:00 Test Item Value Reference Range Interpretation Comments BUN (test code = BUN) 18 7- [facility]2018-11-27 18:20:00 Test Item Value Reference Range Interpretation Comments Creatinine Lvl (test code = Creatinine 1.18 0.50-1.40 Lvl) [facility]2018-11-27 18:20:00 Test Item Value Reference Range Interpretation Comments eGFR (test code = eGFR) [address] [facility]2018-11-27 18:20:00 Test Item Value Reference Range Interpretation Comments AGAP (test code = AGAP) 4.2 10.0-20.[address] [facility]2018-11-27 18:20:00 Test Item Value Reference Range Interpretation Comments Calcium Lvl (test code = Calcium Lvl) 8.6 8.5-10.[address] [facility]2018-11-27 18:20:00 Test Item Value Reference Range Interpretation Comments CO2 (test code = CO2) 30 24-[address] [facility]2018-11-27 18:20:00 Test Item Value Reference Range Interpretation Comments Chloride Lvl (test code = Chloride Lvl) 109 95-[address] [facility]2018-11-27 18:20:00 Test Item Value Reference Range Interpretation Comments Potassium Lvl (test code = Potassium 4.2 3.5-5.1 Lvl) [facility]2018-11-27 18:20:00 Test Item Value Reference Range Interpretation Comments Sodium Lvl (test code = Sodium Lvl) 139 135-[address] [facility]2018-11-27 18:20:00 Test Item Value Reference Range Interpretation Comments Glucose Lvl (test code = Glucose Lvl) 111 70-[address] [facility]2018-11-27 18:20:00 Test Item Value Reference Range Interpretation Comments BUN (test code = BUN) 18 - [facility]2018-11-27 18:20:00 Test Item Value Reference Range Interpretation Comments Creatinine Lvl (test code = Creatinine 1.18 0.50-1.40 Lvl) [facility]2018-11-27 18:20:00 Test Item Value Reference Range Interpretation Comments eGFR (test code = eGFR) [address] [facility]2018-11-27 18:20:00 Test Item Value Reference Range Interpretation Comments AGAP (test code = AGAP) 4.2 10.0-20.[address] [facility]2018-11-27 18:20:00 Test Item Value Reference Range Interpretation Comments Calcium Lvl (test code = Calcium Lvl) 8.6 8.5-10.[address] [facility]2018-11-27 18:20:00 Test Item Value Reference Range Interpretation Comments CO2 (test code = CO2) 30 24-[address] [facility]2018-11-27 18:20:00 Test Item Value Reference Range Interpretation Comments Chloride Lvl (test code = Chloride Lvl) 109 95-[address] [facility]2018-11-27 18:20:00 Test Item Value Reference Range Interpretation Comments Potassium Lvl (test code = Potassium 4.2 3.5-5.1 Lvl) [facility]2018-11-27 18:20:00 Test Item Value Reference Range Interpretation Comments Sodium Lvl (test code = Sodium Lvl) 139 135-[address] [facility]2018-11-27 18:20:00 Test Item Value Reference Range Interpretation Comments Glucose Lvl (test code = Glucose Lvl) 111 70-[address] [facility]2018-11-27 18:20:00 Test Item Value Reference Range Interpretation Comments BUN (test code = BUN) 18 7-[address] [facility]2018-11-27 18:20:00 Test Item Value Reference Range Interpretation Comments Creatinine Lvl (test code = Creatinine 1.18 0.50-1.40 Lvl) [facility][U] XRAY ELBOW 2 VWS RIGHT [id number] 15:57:00Images acquired, not reported on this accession number.[facility][U] XRAY WRIST MIN 3 VWS RIGHT [id number] 15:57:00Images acquired, not reported on this accession number.[facility] Notes Date/Time Note Provider Source 2023-03-26 20:00:00 [id number]:00:00Formatting Julissa Tucker RN [facility] - [facility] of this note might be different from the original.Pt given printed and verbal discharge instructions regarding chronic pain and facial pain Prescriptions providedDiscussed Tylenol # 3 side affects and to avoid driving/operating machinery/or engaging in activities requiring alertness while taking.Pt verbalized understanding of instructions, pt awake alert oriented, resp reg unlabored, skin w/d, color appropriate for race, moves all ext well,pt encouraged to follow up with pcpAdvised to seek medical attention for new/prolonged/worsening of symptomsNo adverse reaction to meds given in ER noted upon dischargePIV d'cd, dressing to site, catheter in tact.Awake, alert oriented, resp reg unlabored, skin w/d, pt leaving amb with steady gait, in no apparent distress [id number] department HvgiDD2424-77-82L17:32:15[facility] [id number] .2.7.2.242788|[id number] lable for patient [id number] jolly Tucker RN[address]vdGalvestonGalvestonTXTX[address] [id number]20 03-04-15T21:32:151.2.840.62704 0.1.72.3.15|1.2.840.395686.1.1 3.104.2.7.2.727879_[id number] 2023-03-26 16:21:28 5261-74-18L23:21:28Formatting Rakesh Clarke [facility] of this note might be Sylvia CLEMENTE different from the original.Patient had surgery with drain for mastoiditis. Tube was removed on 02/14/2023. Patient followed up with surgeon last week and was referred to pain management but can't be seen until next month. Patient told to go to ED if pain is severe and needs help with his pain. T3 has helped and oxycodone. 30285-5Yocvibdhp department Triage kkpnMW2830-37-88O04:24:03Emerg [facility] Triage noteTXT1.2.840.028818.1.13.104 .2.7.2.860017|[id number] [facility] for patient uimw33961-2Oofcsgiut department [id number] Tricia Ward RN[address] HuwzKggzugjmaOzkmypsvcWIGS3792 [id number] 03-04-156:24:031.2.840.95068 0.1.72.3.15|1.2.840.339180.1.1 [id number] 2022-09-20 13:55:00 8977-02-88K52:55:00EXAM: CT [facility] RHODA Joynerann TEMPORAL BONE WITHOUT CONTRASTDATE: 09/20/2022INDICATION: - G96.01 Cranial cerebrospinal [...] and mastoideum, similar to prior CT temporal bone.[id number] ReportsLNDiagnostic ReportsTXTAVAvailable for patient [facility] OPI Qndoshl9088-83-86U25:51:00 2022-05-19 00:44:00 6491-81-37V30:44:00EXAM: XR [facility] CHEST 1 VIEWDATE: 05/19/2022 Cent er 0:00INDICATION: - inc O2 requriementsCOMPARISON: Chest x-ray dated 05/18/2022TECHNIQUE: AP chest, portable radiographIMPRESSION:1. Cardiomediastinal silhouette is normal in size and contour.2. Lung volumes are low compared to prior study. No parenchymal consolidation. No pleural effusion. No perceptible pneumothorax.3. No acute osseous abnormality.4. Right side [employer] shunt tube superimposing over the right side of the neck and chest.[id number] ReportsLNDiagnostic ReportsTXTAVAvailable for patient [facility]2022-10-08T10:55:00 2022-05-18 21:20:00 [id number]:20:00EXAM: [facility] WITH CONTRASTDATE: Center 05/18/2022 20:21INDICATION: diaphoresis, tahcycardia,COMPARISON: NoneTECHNIQUE: Volumetric CT of the chest is acquired during pulmonary arterial phase following intravenous administration of contrast. Axial, sagittal, coronal, and oblique MIP reconstructions are created at the acquisition workstation. FINDINGS: Shell Molder: Noncontributory.Lines and tubes: [employer] shunt courses along the anterior right hemithorax soft tissues, extending into the abdomen and below the field of view.Lower neck: Unremarkable.Axilla: Clear.Airway: Clear.Lungs and pleura: Gas along the right lung apex (series 5 images 30 through 41) is felt to be extrapleural subcutaneous emphysema and not pneumothorax.Mediastinum, sho and intrathoracic lymph nodes: Normal.Heart, pericardium and great vessels: Pulmonary emboli: No pulmonary embolus is identified to the subsegmental level.Pulmonary trunk: Upper limits of normal, measuring 3.1 cmAscending aorta: 3.1 cm, normalHeart: Normal. No right heart strain. RV:LV ratio is Normal Pericardium: No pericardial fluid.Upper abdomen: Unremarkable.Bones: Gas noted within the canal throughout the thoracic spine.Soft tissues: Normal.IMPRESSION: 1. No pulmonary embolus is identified to the subsegmental level.2. No evidence of pneumonia.3. Gas throughout the thoracic canal likely from recent epidural blood patch.UT SECTION: [id number] ReportsLNDiagnostic ReportsTXTAVAvailable for patient careCH[facility]2022-10-08T09:18:00 2022-05-18 21:20:00 [id number]:20:00EXAM: CT [facility] ABDOMEN AND PELVIS WITH Center CONTRASTDATE: 05/18/2022 20:21 INDICATION: - right epigrastric pain, left lower quadrant pain, diaphorees ADDITIONAL INFORMATION: None.COMPARISON: CT abdomen pelvis 10/25/2021TECHNIQUE: Volumetric CT acquisition of the abdomen and pelvis after the intravenous administration contrast. Axial, coronal and sagittal reconstructions.IV CONTRAST: 100 mL of Omnipaque 350 ORAL CONTRAST: None RADIATION DOSE: Total DLP: See MAR mGy*cm Estimated effective dose: DLP x 0.015 mSv COMPLICATIONS: NoneFINDINGS: Lines and tubes: [employer] shunt catheter extends to the right upper abdomen and enters the peritoneal cavity within the right upper quadrant with tip near the right mid lateral paracolic gutter. No CSF-navneet.Lower thorax: See concurrent chest CT report for more details of thoracic findings.Liver: Too small to characterize hepatic hypodensity within segment 8 of the liver. No enhancing hepatic lesions.Biliary tree: No intra- or extrahepatic biliary ductal dilation.Gallbladder: No radiopaque gallstones. No wall thickening or pericholecystic fluid. Pancreas: No ductal dilatation.Spleen: No splenomegaly or focal lesions. Splenule.Adrenals: No nodules. 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 No dense radiopaque stones.Reproductive organs: No CT abnormality.Gastrointestinal tract: Stomach: No outlet obstruction. .Small intestines:No obstruction. Colon: No obstruction. Moderate stool. Scattered colonic diverticulosis without diverticulitis. 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 No fluid collections.Peritoneum and retroperitoneum: No organized collections.No free air.No CSF-navneet at the tip of the [employer] shunt catheter.Lymph nodes: Reactive periportal lymph node measures 0.9 cm likely reactive. Subcentimeter retroperitoneal and pelvic lymph nodes not enlarged in size.Vasculature: Aorta and branches: Normal caliber. Scattered vascular calcifications.IVC and branches: Normal caliber. Portal system: PatentBones: Age associated degenerative changes.Sclerotic focus at the T12 vertebral body unchanged.Soft tissues: Thinning of the linea alba with tiny fat-containing medical hernia.IMPRESSION: 1. No bowel obstruction. Moderate stool burden.2. Scattered colonic diverticulosis without diverticulitis.3. No intraperitoneal collections. No CSFoma at [employer] shunt tip. 4. Too small to characterize hepatic hypodensity.5. Malrotated right kidney with extrarenal pelvis.6. Please see concurrent chest CT report for more details of thoracic findings.[id number] ReportsLNDiagnostic ReportsTXTAVAvailable for patient careIEMemorial Herm[facility]2022-10-08T09:02:00 2022-05-18 21:20:00 [id number]:20:00EXAM: [facility] WITHOUT CONTRASTDATE: Berylethan chace 05/18/2022 20:21INDICATION: 41 years old Male patient with - headache.TECHNIQUE: Multiple axial images were obtained through the head from vertex to the skull base. Axial bone algorithm reconstruction images are provided. COMPARISON: CT head 05/11/2022FINDINGS:No acute intracranial hemorrhage is identified. Right frontal approach shunt catheter terminating near the foramen Monro. The ventricles are unchanged in size.The abdi-white matter differentiation is maintained. No midline shift shift is identified. No pathologic extra axial fluid is identified.The paranasal sinuses are clear. No mastoid effusion is identified. IMPRESSION:1. No CT evidence of acute intracranial abnormality.[id number] ReportsLNDiagnostic ReportsTXTAVAvailable for patient [facility]2022-10-07T22:36:00 2022-05-18 15:45:01 [id number]:45:01EXAM: XR [facility] CHEST 1 VIEWDATE: 05/18/2022 Cent er 15:19INDICATION: - SOBCOMPARISON: Chest x-ray dated 10/18/2021TECHNIQUE: AP chest, portable radiographIMPRESSION:1. Cardiomediastinal silhouette is normal in size and contour.2. Lung volumes are low compared to prior study. No parenchymal consolidation. No pleural effusion. No perceptible pneumothorax.3. No acute osseous abnormality.4. Right chest wall the patient superimposing over the right side of the neck and chest.[id number] ReportsLNDiagnostic ReportsTXTAVAvailable for patient [facility]2022-10-07T15:45:00 2022-05-18 12:03:37 [id number]:03:37EXAM: [facility] THERAPEUTIC EPIDURAL BLOOD Cente r PATCH WITH FLUOROSCOPIC GUIDANCEDATE: 05/18/2022 14:36INDICATION: '-blood patch for spinal csf leak'.COMPARISON: Blood patch performed yesterday.TECHNIQUE AND FINDINGS:Consent: Informed written and verbal consent were obtained from the patient. The benefits, risks, and alternatives to the procedure were explained and all questions were answered. Procedure setup: A sterile peripheral venous line was placed. The patient was then brought to the fluoroscopy room, placed on the fluoroscopy table, and a time out procedure was performed. The appropriate level was localized using fluoroscopic guidance. The lower back was prepped and draped in the usual sterile fashion. Procedure: Under fluoroscopic guidance the needle was advanced into the epidural space using loss of resistance technique and confirmed with a small volume of epidural contrast injection. The patient's own blood was drawn from the venous line using sterile technique and subsequently injected into the epidural space. The needle was removed and a bandage was applied.Procedure details:- Level: L2-L3 interlaminar space- Needle gauge: 20- Needle length: 6 in- Volume of contrast: 3 mL - Volume of blood: 20 mL - Patient position: ProneRoy MD Armand was present for the procedure.Fluoroscopy time: 4 secSkin dose: 86.6 mGyIMPRESSION: Successful fluoroscopically guided epidural blood patch.[id number] ReportsLNDiagnostic ReportsTXTAVAvailable for patient careCHRISTUS [facility]2022-10-07T16:39:00 2022-05-17 09:00:00 [id number]:00:00EXAM: [facility] THERAPEUTIC EPIDURAL BLOOD Cente r PATCH WITH FLUOROSCOPIC GUIDANCEDATE: 05/17/2022 16:48INDICATION: 'Other- See Reason for Consult - blood patch needed for spinal csf leak'.COMPARISON: NoneTECHNIQUE AND FINDINGS:Consent: Informed written and verbal consent were obtained from the patient. The benefits, risks, and alternatives to the procedure were explained and all questions were answered. Procedure setup: A sterile peripheral venous line was placed. The patient was then brought to the fluoroscopy room, placed on the fluoroscopy table, and a time out procedure was performed. The appropriate level was localized using fluoroscopic guidance. The lower back was prepped and draped in the usual sterile fashion. Procedure: Under fluoroscopic guidance the needle was advanced into the epidural space using loss of resistance technique. Contrast was then injected and seen projecting over the midline on the AP view over the expected epidural space. The patient's own blood was drawn from the venous line using sterile technique and subsequently injected, approximately 15 cc. The needle was then removed and upon retrieval only 6 cm fragment of the needle was obtained. Repeat radiograph demonstrated residual needle fragment overlying the posterior paraspinous soft tissue and the overlying subcutaneous tissue with its superficial margin closer to the radiographic skin margin. Interventional radiology (Dr. Jenn Chapman, IR faculty and Dr Lamb, IR fellow) was consulted for assistance with retained 9 cm needle fragment removal, who then performed the procedure. Initial attempt to retrieve retained fragment from the initial needle skin entry site was unsuccessful by them given the distance from initial skin entry site. Next, 2 small skin incisions cephalad to the initial skin entry site were made, and the retained needle fragment was retrieved completely under fluoroscopic guidance. Postprocedure imaging demonstrated no radiopaque residual needle fragment.The initial skin entry site was closed with single suture. Dermabond was applied to the 2 additional skin incision site cephalad to initial entry site.Procedure details:- Level: L4-L5 interlaminar space- Needle gauge: 20- Needle length: 6 inches- Volume of contrast: 3 mL - Volume of blood: 15 mL - Patient position: ProneRegulo Miller MD was present for the procedure.Fluoroscopy time: 2 minutes 14 secondsSkin dose: 408.1 mGyIMPRESSION: Fluoroscopically guided epidural blood patch as above.Intraprocedural needle break, with retained needle fragment in posterior paraspinous soft tissue and subcutaneous soft tissue, that was successfully retrieved by interventional radiology service, and confirmed with postprocedural imaging.The findings of procedure were discussed by Dr. Jamal Stephenson with neurosurgery nurse practitioner utility division project manager pager, and with neurosurgery resident Dr. Morales, following the procedure. Additionally, the findings of procedure were discussed by Dr. Regulo Miller with Dr. Morales on 05/17/2022 at 1245 hours. The procedural details were discussed with patient as well as his spouse.Patient reported improvement in headache following the procedure as well as 6 hours following the procedure, with no new complaint.[id number] ReportsLNDiagnostic ReportsTXTAVAvailable for patient careIEMemorial Hermann [facility]2022-10-07T20:14:00 2022-05-12 05:56:00 [id number]:56:00EXAM: [facility]22INDICATION: - headache. Outside brain magnetic resonance imaging submitted for 2nd opinion. COMPARISON: Head CTs dated from 05/10/2021 to 05/01/2022 TECHNIQUE: Brain magnetic resonance imaging performed at [facility] on 05/11/2022.IV contrast: None.FINDINGS:Artifact along the right frontoparietal region is observed secondary to extracranial FOREST LOGISTICS MANAGER shunt system.Redemonstrated right frontal approach ventriculostomy catheter with distal tip in the right frontal horn adjacent to the foramen of Monro. The ventricles are decompressed and is slightly smaller compared to CTs from September 2021.The basal brain parenchyma demonstrates restricted diffusion to suggest acute ischemia.No brain parenchymal signal abnormalities, mass effect, midline shift or downward herniations.The basal cisterns are patent.The intracranial arterial and venous structures demonstrate normal flow voids.There is effusion in the left mastoid air cells. The paranasal sinuses are clear.IMPRESSION: 1. Decompressed supratentorial ventricular system suggestive of slit ventricles.2. Unchanged position of a right frontal approach ventriculostomy catheter.3. No other intracranial abnormality.4. Left mastoid air cells effusion.[id number] ReportsLNDiagnostic ReportsTXTAVAvailable for patient careCHRISTUS Saint [facility] Hospital2022-10-01T12:09:00 2021-10-25 14:16:11 [id number]:16:11Radiation RHODA Martin Dose CTDIVOL = 0 (mGy): DLP = 1199.84 (mGy-cm)PROCEDURE INFORMATION: Exam: CT Abdomen And Pelvis With [...] kV adjustment per patient size (includes targeted exams where dose is matched to clinical indication); or iterative reconstruction. Contrast material: OMNI 300; Contrast volume: 100 ml; Contrast route: INTRAVENOUS (IV); Other contrast: Oral, omni/water, 900; COMPARISON: OT ABDOMEN/PELVIS W IV CONTRAST CT 10/08/2021 8:06 PM RADIATION DOSE METRICS: Total DLP (mGy-cm): 1199.84 FINDINGS: Lungs: Clear lung bases. Liver: Unenhanced liver grossly normal. Gallbladder and bile ducts: Gallbladder and biliary system normal. Pancreas: Pancreas normal. Spleen: Spleen normal. Adrenal glands: Adrenals normal. Kidneys and ureters: Incompletely rotated right kidney. No renal mass, calculus, hydronephrosis or perinephric stranding. Stomach and bowel: No intestinal lesion or mesenteric inflammatory change. Appendix: Appendix not visualized. Intraperitoneal space: No ascites. Vasculature: Unremarkable. Lymph nodes: No adenopathy. Urinary bladder: Urinary bladder empty. Reproductive: Prostate not remarkable. Bones/joints: Minor spondylosis. Soft tissues: Tiny fat containing umbilical hernia. Approximate 5.3 x 6.3 cm subcutaneous fluid collection upper right abdomen adjacent to shunt tubing, slightly decreased in size and and more circumscribed, likely seroma. Shunt tubing terminates in the anterior upper abdomen. IMPRESSION: 1. Right subcutaneous fluid collection adjacent to the shunt tubing as described, likely seroma. 2. Shunt tubing terminates in the upper anterior abdomen. Kelvin Pate MD On 10/26/2021 18:10:05; [id number] c ReportsLNDiagnostic ReportsTXTAVAvailable for patient [facility] OPID [id number]:14:00 2021-10-18 11:56:35 [id number]:56:35EXAM: XR [facility] ABDOMEN 4 VIEWSDATE: 10/18/2021 11:55 DESKTOP SUPPORT ENGINEER INDICATION: - R10.30 Lower abdominal pain, unspecified ADDITIONAL INFORMATION: None.COMPARISON: CT the abdomen and pelvis of 10/08/2021 TECHNIQUE: Supine and upright AP views of the abdomen as well as bilateral lateral decubitus viewsFINDINGS: Lines and tubes: Ventriculoperitoneal shunt catheter is partially visualized coursing into the right upper quadrant and looping upon itself and terminating in the left upper quadrant.Lower thorax: No lung parenchymal or pleural abnormalities are seen. Cardiac mediastinal silhouette, hilar, and pulmonary vascular structures are normal in appearance. A portion of a right-sided FOREST LOGISTICS MANAGER shunt catheter is visualizedBowel: Nonobstructive bowel gas pattern. No pneumatosis is seen. Free air: NoneSolid organs: No abnormal mass or organomegaly seen. No abnormal intra-abdominal calcifications are seen.Bones: No acute abnormalities. IMPRESSION: 1. Right-sided FOREST LOGISTICS MANAGER shunt catheter in place looped upon itself in the right upper quadrant and terminating in the left upper quadrant.2. Bowel gas pattern is nonobstructive. No free air is seen.[id number] ReportsLNDiagnostic ReportsTXTAVAvailable for patient [facility] OPID [id number]:31:00 2021-10-08 20:09:19 [id number]:09:19EXAM: CT [facility] ABDOMEN AND PELVIS WITH Center CONTRASTDATE: 10/08/2021 20:06 DESKTOP SUPPORT ENGINEER INDICATION: - outside films/FOREST LOGISTICS MANAGER shunt displacement ADDITIONAL INFORMATION: None.COMPARISON: None.TECHNIQUE: Volumetric CT of the abdomen and pelvis acquired following the intravenous administration of contrast. Axial, coronal and sagittal images are provided. IV contrast: Refer to MAR/electroneurodiagnostic technologist documentationEnteric contrast: None.DLP (mGy-cm): Refer to MAR/electroneurodiagnostic technologist documentation FINDINGS:Shell Molder: Noncontributory.Lines, tubes and hardware: Right sided FOREST LOGISTICS MANAGER shunt with the distal tip terminating in the subcutaneous soft tissues of the right upper ventral abdomen with associated fluid collection.Lower thorax: Minimal left basilar dependent subsegmental atelectasis..Liver: Normal.Biliary tree: No intra- or extrahepatic bile duct dilation.Gallbladder: Normal.Pancreas: Normal.Spleen: Normal.Adrenals: Normal.Kidneys and ureters: Malrotated right kidney with mild pelviectasis. No hydronephrosis or nephrolithiasis bilaterally. Facing anteriorly. No hydroureteronephrosis. No obstructive calculi. Bladder: Decompressed or not fully distended.Reproductive organs: Prostate and seminal vesicles are unremarkable.Gastrointestinal tract:Lower esophagus: Normal.Stomach: Normal.Small bowel: Normal.Colon: Normal.Appendix: Not seen. No inflammation.Peritoneum, mesentery and retroperitoneum: No free air, ascites or loculated fluid.Lymph nodes: Normal.Vasculature: Aorta and branches: Normal.IVC and veins: Normal.Portal and mesenteric vasculature: Normal.Bones: No acute abnormality. Anterior vertebral body osteophyte formation most significantly at T11-T12 vertebral bodies.Soft tissues: Small fat-containing umbilical hernia. Fat stranding noted in the region of the distal, malpositioned FOREST LOGISTICS MANAGER shunt in the right lower quadrant abdominal soft tissues with associated fluid collection measuring approximately 8.2 x 5.4 x 3.9 cm (transverse, AP, CC).IMPRESSION: Malpositioned FOREST LOGISTICS MANAGER catheter with the distal tip in the right upper quadrant ventral abdominal soft tissues with associated fluid collection.[id number] ReportsLNDiagnostic ReportsTXTAVAvailable for patient careIEMemorial Hermann [facility]2022-02-28T13:36:00 2021-10-08 20:09:12 [id number]:09:12Critical [facility] finding of new left frontal Cent er lobe hypoattenuation along the right frontal shunt catheter possibly telesales representative of an infectious process was communicated to and acknowledged by Trenton Mcfadden at 10/08/2021 21:26 DESKTOP SUPPORT ENGINEER by Armond Sultana MD. EXAM: CT BRAIN WITHOUT CONTRASTDATE: 10/08/2021 20:07 CSTINDICATION: - outside films/FOREST LOGISTICS MANAGER shunt displacementCOMPARISON: CT brain 10/04/2021.TECHNIQUE: Axial CT images of the brain were obtained. Sagittal and coronal reformats.IV contrast: None.DLP: Refer to CT protocol formFINDINGS: Unchanged positioning of right frontal approach ventricular peritoneal shunt terminating at the third ventricle.There is interval mild vasogenic edema in the parenchyma around the shunt catheter close to the cerebral cortex. This could represent a superadded infection.There is no intracranial bleed. There is no intracranial mass effect. There is no chronic abnormality.There is no fracture of the skull, skull base, or visible facial bones. Residual foci of subcutaneous air present within the soft tissues overlying the right parietal region is appropriate (series 301 image 18, series 303 image 51) in setting of recent ventricular peritoneal shunt placement.IMPRESSION:Mild edema is noted in the brain parenchyma around the right frontal shunt catheter close to the cerebral cortex. This is new compared to the prior noncontrast head CT done on 10/04/2021 and could represent infection. There is no ventriculomegaly.A pre and postcontrast brain MRI is recommended for further evaluation.[id number] ReportsLNDiagnostic ReportsTXTAVAvailable for patient careCHRISTUS Saint [facility] Hospital2022-02-27T21:37:00 2021-10-04 08:34:12 [id number]:34:12EXAM: CT [facility] BRAIN WITHOUT CONTRASTDATE: Cent er 10/04/2021INDICATION: ' - evalshunt'ADDITIONAL INFORMATION: NoneCOMPARISON: Head CT 10/03/2021TECHNIQUE: Noncontrast axial CT images were acquired through the brain. 5 mm axial, sagittal, and coronal images were reviewed.IV contrast: NoneDLP: Refer to CT protocol formFINDINGS: New right transfrontal shunt catheter. No change in ventricular caliber. Expected droplets of intraventricular and right frontal convexity air.No large intracranial hemorrhage. No new parenchymal density abnormality.The ventricles are unchanged in caliber and configuration.IMPRESSION: New right transfrontal shunt catheter.[id number] ReportsLNDiagnostic ReportsTXTAVAvailable for patient careCHRISTUS Saint [facility] Hospital2022-02-23T09:53:00 2021-10-03 21:24:18 [id number]:24:18Exam: Shunt [facility] series.DATE: Center 10/03/2021.INDICATION: Evaluate shunt.COMPARISON: CT brain 10/04/2021, 10/03/2021TECHNIQUE: AP and lateral radiographs of the skull, chest and abdomen were obtained.FINDINGS: Placement of a right-sided approach ventriculostomy catheter with intracranial limb terminating near the midline. The shunt tubing courses along the superficial soft tissues of the right scalp, neck and anterior chest/abdominal wall and terminates in the right upper quadrant of the abdomen. No evidence of discontinuity or kinking. Suboptimal image of the calvarium for assessment of the shunt setting. Pneumocephalus and air along the right scalp related to recent shunt placement.IMPRESSION:Right-mena ed approach ventriculoperitoneal catheter the tip of the abdominal limb in the right upper quadrant. No catheter discontinuity or kinking.[id number] ReportsLNDiagnostic ReportsTXTAVAvailable for patient careCHRISTUS Saint [facility]2022-02-23T15:59:00 2021-10-03 08:36:56 [id number]:36:56EXAM: CT [facility] BRAIN WITHOUT CONTRASTDATE: Cent er 10/03/2021 0840 hoursINDICATION: - preop planningCOMPARISON: CT brain without contrast May 10, 2021TECHNIQUE: Noncontrast axial imaging of the brain was acquired from the vertex to the skull base at 1 mm thickness as per standard Ste[facility] protocol. Coronal and sagittal reformatted images were generated.FINDINGS: Limited evaluation due to streak artifact resulted from stereotactic frame.No evidence of acute intracranial hemorrhage, mass effect or midline shift.Calvarium and skull base are intact. Imaged portions of the paranasal sinuses and mastoid air cells are clear.A myringotomy tube is noted in the left tympanic membrane. The previously seen opacification of the left mastoid air cells and middle ear has resolved.IMPRESSION: 1. Stealth protocol for treatment planning. 2. Images are adequate for localization purpose.3. No evidence of intracranial abnormality.4. Note is made of a myringotomy tube in the left tympanic membrane. The previously seen opacification of the left mastoid air cells and middle ear has resolved.[id number] ReportsLNDiagnostic ReportsTXTAVAvailable for patient careIEMemorial Hermann [facility]2022-02-22T09:53:00 2021-05-11 02:14:01 [id number]:14:01EXAM: CT [facility] TEMPORAL BONE WITH Center CONTRASTDATE: 05/11/2021 INDICATION: - Pt with L ear effusion, draining x1 year, headache, neck stiffnessCOMPARISON: Head CT 05/10/2021TECHNIQUE: Axial noncontrast images of the temporal bone, with coronal reformatted images. Short and long axis reformatted images also generated.IV contrast: None.FINDINGS:RIGHT:Mastoid air cells are well developed andCompletely opacified.External auditory canal has soft tissue thickening.The middle ear cavity is well pneumatized and partially opacified. The scutum is intact. Ossicular chain is normal. Tegmen tympani and mastoideum are intact. Cochlea, vestibule and semicircular canals appear normal. The roof of the superior semicircular canal is intact. Normal course and caliber of the internal auditory and facial nerve canals. Vestibular aqueduct is not enlarged. Carotid canal and jugular bulb are unremarkable.LEFT:Mastoid air cells are well developed and aerated.External auditory canal is patent and normal caliber.The middle ear cavity is well pneumatized and clear. The scutum is intact. Ossicular chain is normal. Tegmen tympani and mastoideum are intact. Cochlea, vestibule and semicircular canals appear normal. The roof of the superior semicircular canal is intact. Normal course and caliber of the internal auditory and facial nerve canals. Vestibular aqueduct is not enlarged. Carotid canal and jugular bulb are unremarkable.IMPRESSION: Near complete opacification of the left mastoid air cells with minimal soft tissue thickening involving the middle ear cavity. No evidence of erosive changes of the mastoid air cell bony septa. No periosteal abscess or venous thrombosis.[id number] ReportsLNDiagnostic ReportsTXTAVAvailable for patient careCHRISTUS Saint [facility]2021-09-30T08:08:00 2021-05-10 22:34:45 [id number]:34:45EXAM: CT [facility] BRAIN WITHOUT CONTRASTDATE: [facility] 05/10/2021 22:24 CDTINDICATION: 40-year-old male patient with Daily headacheCOMPARISON: CT facial bone dated February 12, 2012.TECHNIQUE: Axial CT images of the brain were obtained. Sagittal and coronal reformats.IV contrast: None.DLP: Refer to CT protocol formFINDINGS: There is no edema, hemorrhage, mass lesion or other acute intracranial abnormality. There is no chronic abnormality. Benign calcification along the falx cerebri.Opacification of the left mastoid air cells.There is no acute fracture of the skull, skull base, or visible facial bones. Chronic fracture of the right nasal bone, new from prior examination.IMPRESSION: 1. No acute intracranial abnormality.2. Near complete left mastoid effusion.3. Chronic fracture of the right nasal bone, new from prior examination.[id number] ReportsLNDiagnostic ReportsTXTAVAvailable for patient careCHRISTUS [facility]2021-09-29T23:09:00
[2023-07-08] MEDS ORDERED: AMOX/K CLAV 875 MG TAB ONE (23:52)
[2023-07-08] MEDS ORDERED: HYDROCODONE/APAP 10/325 TAB ONE (23:52)
[2023-07-09] MEDS ORDERED: cloNIDine HCL 0.1 MG TAB ONE (00:38)
[2023-07-09] MEDS ORDERED: MORPHINE 4 MG/ML SYR ONE (01:55)
--- NOTE | 2023-07-09 02:52 | ER ---
Nurse's Notes [facility] Name: Teryr Akins Sr Age: 43 yrs Sex: Male : 1980 Arrival Date: 07/08/2023 Time: 22:43 Bed 13 Private MD: Diagnosis: Disorder of teeth and supporting structures, unspecified;Hypertensive heart disease without heart failure;Headache Presentation: 07/08 23:30 Chief complaint: Patient states: left jaw pain began yesterday reports broken tooth. Coronavirus screen: Vaccine status: Patient reports receiving the 2nd dose of the covid vaccine. Ebola Screen: Patient denies exposure to infectious person. Initial Sepsis Screen: Does the patient meet any 2 criteria? No. Patient's initial sepsis screen is negative. Does the patient have a suspected source of infection? No. Patient's initial sepsis screen is negative. Risk Assessment: Do you want to hurt yourself or someone else? Patient reports no desire to harm self or others. 23:30 Method Of Arrival: Ambulatory 23:30 Acuity: SARITHA 4 07/09 03:52 Onset of symptoms was July 07, 2023. as6 Triage Assessment: 07/08 23:33 General: Appears distressed, uncomfortable, Behavior is cooperative, anxious. Pain: Complains of pain in left jaw Pain currently is 10 out of 10 on a pain scale. EENT: Reports pain in left jaw. Historical: - Allergies: 23:31 No Known Allergies; kl - Home Meds: 23:31 gabapentin oral [Active]; losartan oral [Active]; Norvasc Oral [Active]; kl - PMHx: 23:31 Hypertensive disorder; Migraine; kl - PSHx: 23:31 Appendectomy; carpal tunnel right; hernia; left hand tendonitis; Mastoid surgery; Nerve kl transplantion; shunt; - Immunization history:: Adult Immunizations up to date. - Social history:: Smoking status: Patient denies any tobacco usage or history of. Screenin/28 03:04 [facility] ED Fall Risk Assessment (Adult) History of falling in the last 3 months, bp including since admission No falls in past 3 months (0 pts). Abuse screen: Denies threats or abuse. Denies injuries from another. Nutritional screening: No deficits noted. Tuberculosis screening: No symptoms or risk factors identified. Vital Signs: 07/08 23:30 BP 201 / 101; Pulse 84; Resp 18; Temp 98.4(TE); Pulse Ox 100% on R/A; Weight 131.54 kg; kl Height 6 ft. 3 in. ; Pain 05/21; 07/09 01:16 BP 180 / 124; Pulse 83; Resp 16; Pulse Ox 100% ; bp 03:52 BP 148 / 87; Pulse 84; Resp 18 S; Pulse Ox 98% on R/A; as6 07/08 23:30 Body Mass Index 36.25 (131.54 kg, 190.5 cm) 07/08 23:30 Pain Scale: Adult ED Course: 07/08 22:44 Patient arrived in ED. ag3 22:53 Talon Lakhani PA is PHCP. cp 22:53 Demarcus Stone MD is Attending Physician. cp 23:31 Triage completed. 07/09 03:04 Patient has correct armband on for positive identification. bp 03:04 No provider procedures requiring assistance completed. Patient did not have IV access bp during this emergency room visit. 03:51 Provided Education on: follow up. as6 03:52 Arm band placed on. as6 Administered Medications: 07/08 23:40 Drug: [place] PO 10 mg-325 mg 1 tabs PO once Route: PO; hb 07/09 03:50 Follow up: Response: No adverse reaction as6 07/08 23:40 Drug: Amoxicillin-Clavulanate PO 875 mg PO once Route: PO; hb 07/09 03:50 Follow up: Response: No adverse reaction as6 00:30 Drug: cloNIDine PO 0.2 mg PO once; if systolic pressure >180 Route: PO; bp 03:49 Follow up: Response: No adverse reaction as6 01:46 Drug: morphine IM 6 mg IM once Route: IM; Site: right deltoid; bp 03:49 Follow up: Response: No adverse reaction as6 03:35 Drug: Bupivacaine-Epinephrine Infiltration (0.5 %) 10 ml Infiltration once; to bedside as6 {Note: administered by provider .} Route: Infiltration; 03:49 Follow up: Response: No adverse reaction as6 03:46 Drug: Ketorolac IM 60 mg IM once Route: IM; Site: right ventrogluteal; as6 03:49 Follow up: Response: No adverse reaction as6 03:46 Drug: HYDROcodone-acetaminophen PO 5 mg-325 mg 1 tabs PO once Route: PO; as6 03:49 Follow up: Response: No adverse reaction as6 03:46 Drug: Promethazine PO 25 mg PO once Route: PO; as6 03:49 Follow up: Response: No adverse reaction as6 Medication: 03:52 VIS not applicable for this client. as6 Outcome: 03:04 Eloped from waiting room, after seeing physician Time discovered patient gone: June bp 2022 at 03:05 03:04 Condition: stable 03:06 Patient left the ED. bp 03:38 Discharge ordered by MD. as6 03:53 Patient left the ED. as6 Signatures: Shanthi Badillo, RN RN Talon Juarez PA PA cp Baxter, Heather, RN Milind Zafar RN RN bp Gomez, Alice ag3 Slawson, Ashby, RN RN as6
--- NOTE | 2023-07-09 02:52 | EDPHYS ---
Physician Documentation [facility] Name: Terry Akins Sr Age: 43 yrs Sex: Male : 1980 Arrival Date: 07/08/2023 Time: 22:43 Bed 13 Private MD: ED Physician Demarcus Stone HPI: 07/08 23:25 This 43 yrs old Black Male presents to ER via Ambulatory with complaints of Toothache. cp 23:25 The patient presents with pain. The problem is located in the left lower molar. cp 23:25 Onset: The symptoms/episode began/occurred yesterday. cp 23:25 Duration: The symptoms are continuous, and are steadily getting worse. Associated signs cp and symptoms: Pertinent positives: left side jaw pain, headache, Pertinent negatives: fever. Severity of symptoms: in the emergency department the symptoms are unchanged, despite home interventions. Historical: - Allergies: 23:31 No Known Allergies; kl - Home Meds: 23:31 gabapentin oral [Active]; losartan oral [Active]; Norvasc Oral [Active]; kl - PMHx: 23:31 Hypertensive disorder; Migraine; kl - PSHx: 23:31 Appendectomy; carpal tunnel right; hernia; left hand tendonitis; Mastoid surgery; Nerve kl transplantion; shunt; - Immunization history:: Adult Immunizations up to date. - Social history:: Smoking status: Patient denies any tobacco usage or history of. ROS: 23:30 Constitutional: Negative for body aches, chills, fever, poor PO intake, cp 23:30 Eyes: Negative for injury, pain, redness, and discharge, cp 23:30 ENT: Positive for dental pain, left lower jaw pain, Negative for sore throat, difficulty swallowing, difficulty handling secretions, 23:30 Cardiovascular: Negative for chest pain, edema, palpitations, 23:30 Respiratory: Negative for cough, shortness of breath, wheezing, 23:30 Abdomen/GI: Negative for abdominal pain, vomiting, diarrhea, constipation, 23:30 Neuro: Positive for headache, Negative for altered mental status, numbness, weakness, 23:30 All other systems are negative, Exam: 23:35 Constitutional: The patient appears in no acute distress, alert, awake, cp non-diaphoretic, non-toxic, well developed, well nourished, obese, uncomfortable, 23:35 Head/Face: Normocephalic, atraumatic. cp 23:35 Eyes: Periorbital structures: appear normal, Conjunctiva: normal, no exudate, no injection, Sclera: no appreciated abnormality, Lids and lashes: appear normal, bilaterally, 23:35 ENT: External ear(s): are unremarkable, Nose: is normal, Mouth: Lips: moist, Oral mucosa: pink and intact, moist, Tongue: is normal, abscess, is not appreciated, Posterior pharynx: Airway: no evidence of obstruction, patent, swelling, is not appreciated, erythema, is not appreciated, Dental exam: abscess, is not appreciated, dental caries, that is moderate, diffusely, gum swelling, not appreciated, missing teeth, diffusely, pain, that is severe, specifically in the lower left second molar (#18), 23:35 Neck: ROM/movement: is normal, is supple, without pain, no range of motions limitations, no meningismus, no nuchal rigidity, 23:35 Chest/axilla: Inspection: normal, 23:35 Cardiovascular: Rate: normal, 23:35 Respiratory: the patient does not display signs of respiratory distress, Respirations: normal, no use of accessory muscles, no retractions, labored breathing, is not present, Breath sounds: are clear throughout, no decreased breath sounds, 23:35 Neuro: Orientation: to person, place \T\ time. Mentation: is normal, Motor: moves all fours, strength is normal, Gait: is steady, at a normal pace, without difficulty, Vital Signs: 23:30 BP 201 / 101; Pulse 84; Resp 18; Temp 98.4(TE); Pulse Ox 100% on R/A; Weight 131.54 kg; kl Height 6 ft. 3 in. ; Pain 05/21; 07/09 01:16 BP 180 / 124; Pulse 83; Resp 16; Pulse Ox 100% ; bp 03:52 BP 148 / 87; Pulse 84; Resp 18 S; Pulse Ox 98% on R/A; as6 07/08 23:30 Body Mass Index 36.25 (131.54 kg, 190.5 cm) 07/08 23:30 Pain Scale: Adult MDM: 07/08 23:43 Patient medically screened. cp 07/09 00:00 Differential diagnosis: dental caries, gingivitis, dental abscess, pericoronitis, acute cp necrotizing ulcerative gingivitis, gingivostomatitis, hypertensive urgency, intracranial bleed. 02:38 Data reviewed: vital signs, nurses notes. cp 03:31 ED course: Patient has returned and we have performed dental block with bupivacaine sp4 with complete resolution of pain. . 07/09 00:57 Order name: Blood Pressure Recheck; Complete Time: 01:46 cp Administered Medications: 07/08 23:40 Drug: [place] PO 10 mg-325 mg 1 tabs PO once Route: PO; hb 07/09 03:50 Follow up: Response: No adverse reaction as6 07/08 23:40 Drug: Amoxicillin-Clavulanate PO 875 mg PO once Route: PO; hb 07/09 03:50 Follow up: Response: No adverse reaction as6 00:30 Drug: cloNIDine PO 0.2 mg PO once; if systolic pressure >180 Route: PO; bp 03:49 Follow up: Response: No adverse reaction as6 01:46 Drug: morphine IM 6 mg IM once Route: IM; Site: right deltoid; bp 03:49 Follow up: Response: No adverse reaction as6 03:35 Drug: Bupivacaine-Epinephrine Infiltration (0.5 %) 10 ml Infiltration once; to bedside as6 {Note: administered by provider .} Route: Infiltration; 03:49 Follow up: Response: No adverse reaction as6 03:46 Drug: Ketorolac IM 60 mg IM once Route: IM; Site: right ventrogluteal; as6 03:49 Follow up: Response: No adverse reaction as6 03:46 Drug: HYDROcodone-acetaminophen PO 5 mg-325 mg 1 tabs PO once Route: PO; as6 03:49 Follow up: Response: No adverse reaction as6 03:46 Drug: Promethazine PO 25 mg PO once Route: PO; as6 03:49 Follow up: Response: No adverse reaction as6 Disposition: 02:57 Co-signature as Attending Physician, Demarcus Stone MD I agree with the assessment sp4 and plan of care. I reviewed the patient's care provided by Advanced Practice Provider \T\ agree w/ the diagnosis \T\ care plan. I personally saw the pt \T\ performed a substantive portion of the visit, incldng all aspects of the (History/Exam/Medical Decision Making). Disposition Summary: 07/09/23 03:38 Discharge Ordered Notes: Please see Dentist DAKSHA for dental extraction tooth # 18 Location: Home as6 Condition: Fair(07/09/23 03:38) as6 Diagnosis - Disorder of teeth and supporting structures, unspecified(07/09/23 03:38) as6 - Hypertensive heart disease without heart failure(07/09/23 03:38) as6 - Headache(07/09/23 03:38) as6 Followup: as6 - With: Private Physician - When: 1 - 2 days - Reason: Recheck today's complaints Discharge Instructions: - Discharge Summary Sheet as6 Forms: - Work release form as6 - Medication Reconciliation Form as6 - Thank You Letter as6 - Antibiotic Education as6 - Prescription Opioid Use as6 - Patient Portal Instructions as6 - Leadership Thank You Letter as6 Signatures: Dispatcher [employer] EDShanthi Landaverde RN RN Talon Juarez PA PA cp Baxter, Heather, RN RN hb Peltier, Brian, RN RN bp Slawson, Ashby, RN RN as6 Demarcus Stone MD MD sp4 Corrections: (The following items were deleted from the chart) 03:19 01:15 Head Brain Wo Cont+CT.RAD.BRZ ordered. EDMS EDMS 03:36 02:51 after being seen by provider cp as6 03:36 02:51 unknown cp as6 03:36 02:51 Fair cp as6 03:36 02:51 Disorder of teeth and supporting structures, unspecified cp as6 03:36 02:51 Hypertensive heart disease without heart failure cp as6 03:36 02:51 Headache cp as6
[2023-07-09 03:11] VITALS: TEMP 98.4
[2023-07-09] MEDS ORDERED: BUPIVACAINE 0.5% PF 10 ML VIAL ONE (03:32)
[2023-07-09] MEDS ORDERED: HYDROCODONE/APAP 5/325 MG TAB ONE (03:54)
[2023-07-09] MEDS ORDERED: PROMETHAZINE 25 MG TABLET ONE (03:54)
[2023-07-09] MEDS ORDERED: KETOROLAC 30 MG/ML INJ ONE (03:55)
[2023-07-09 04:02] VITALS: BP 148/87; O2SAT 98
== END 2023-07-09 03:53 | disposition home or self-care (01) ==
LOC: ER 22:43
DX: K08.89 Other specified disorders of teeth and supporting structures (principal); R51.9 Headache, unspecified; I11.9 Hypertensive heart disease without heart failure
CPT/HCPCS: 96372; 99284; Q0169

== ENCOUNTER → 2023-08-05 | Emergency (ER) | payer OTHER, SELFPAY ==
[~2023-08-05] MED LIST: CYCLOBENZAPRINE 10 MG TAB ONE; FENTANYL CITR 100 MCG/2 ML ONE; MORPHINE 4 MG/ML SYR ONE
--- NOTE | 2023-08-05 17:37 | RAD REPORT ---
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 Multiplanar reformats were generated and reviewed. All CT scans are performed using dose optimization technique as appropriate and may include automated exposure control or mA/KV adjustment according to patient size. FINDINGS: No intracranial hemorrhage, mass, or edema. Midline structures are unremarkable. Unchanged position of the right ventral and. Normal ventricular caliber is stable with effacement of the right lateral ventricle. Albert-white matter differentiation is preserved, without evidence of acute infarct. No abnormal extra- axial fluid collections. Left canal wall up mastoidectomy again seen. Visualized portions of the paranasal sinuses are clear. No acute bony findings. IMPRESSION: No evidence of an acute intracranial process. Stable ventricular caliber.
--- NOTE | 2023-08-05 17:39 | RAD REPORT ---
EXAM DESCRIPTION: CT - Spine Lumbar Wo Con - 08/05/2023 5:02 pm CLINICAL HISTORY: LOWER BACK PAIN COMPARISON: No comparisons TECHNIQUE: Axial noncontrast CT imaging of the lumbar spine was performed with coronal and sagittal re-formatted images. All CT scans are performed using dose optimization technique as appropriate and may include automated exposure control or mA/KV adjustment according to patient size. FINDINGS: No acute lumbar spine fracture seen. No aggressive marrow pattern or malalignment. Paraspinal tissues are normal in thickness. No paraspinal abscess or hematoma seen. Intervertebral disc disease assessment is inherently limited by CT. Within these limitations, no high -grade canal stenosis suspected. IMPRESSION: No acute lumbar spine fracture or subluxation. No other acute findings. Please consider MRI follow-up for assessment of disc disease if there is cli nical concern for neural involvement.
--- NOTE | 2023-08-05 17:49 | RAD REPORT ---
EXAM DESCRIPTION: Shuntogram - 08/05/2023 5:23 pm CLINICAL HISTORY: PAIN COMPARISON: Abdomen Exam Limited dated 04/11/2023; Shuntogram dated 09/22/2022 TECHNIQUE: AP and lateral views head, neck, chest and upper abdomen. FINDINGS: Right frontal approach ventricular shunt catheter in place. Shunt reservoir overlies the r ight parietal bone. Shunt catheter courses along the right lateral neck and right anterior chest to t he level of the right upper quadrant. The caudal tip of the shunt catheter is not well visualized. No evidence of kinking or discontinuity. IMPRESSION: Right frontal approach ventriculoperitoneal shunt as above
[2023-08-05 18:17] LABS: Absolute Lymphocytes (CBC) 2.7 K/uL (0.7-4.9); Lymphocytes % 33.4 % (15.3-44.8); MCV 83.5 fL (80-100); MPV 8.6 fL (7.6-11.3); Platelets 199 thou/uL (152-406); RBC Red Blood Cell Count 5.14 M/uL (4.33-5.43)
[2023-08-05 18:32] LABS: Albumin 3.7 g/dL (3.4-5.0); Bilirubin Total 0.8 mg/dL (0.2-1.0); Potassium 3.7 mEq/L (3.5-5.1); Protein, Total 7.9 g/dL (6.4-8.2)
[2023-08-05 19:42] LABS: Specific Gravity 1.021 (1.005-1.030); Urine Bacteria None Seen /HPF (<20); Urine Bilirubin NEGATIVE (Negative); Urine Blood Negative (Negative); Urine Clarity Turbid (Clear); Urine Color Light-Yellow (Yellow); Urine Glucose NEGATIVE (Negative); Urine Mucus Slight /HPF (None Seen); Urine Protein NEGATIVE (Negative); Urine RBC <5 /HPF (None Seen); Urine Urobilinogen Normal (Normal); Urine pH 5.5 (5.0-7.0)
--- NOTE | 2023-08-05 20:49 | EDPHYS ---
Physician Documentation [facility] Name: Terry Akins Sr Age: 43 yrs Sex: Male : 1980 Arrival Date: 08/05/2023 Time: 14:06 Bed 7 Private MD: ED Physician Tiera Keen HPI: 08/05 18:04 This 43 yrs old Black Male presents to ER via Ambulatory with complaints of Back Pain, ci Tube in stomach pain. 18:04 Patient is a 43-year-old male with PMH hypertension, migraine, PUBLIC RELATIONS shunt who presents to ci the ED with chief complaint of right lower back pain that began about a week ago. Patient reports he was sleeping on the ground and developed right lower back pain. Pain is sharp, radiates into the right leg. She is associated numbness/tingling. He denies bowel/bladder dysfunction, fever, IVDU, saddle anesthesia. Patient reports he tried massager, ibuprofen. He accidentally moved his PUBLIC [employer] shunt with the massage and, now has abdominal pain as a result.. Historical: - Allergies: 14:33 No Known Allergies; bp - PMHx: 14:33 Hypertensive disorder; Migraine; bp - PSHx: 14:33 Appendectomy; carpal tunnel right; hernia; left hand tendonitis; Mastoid surgery; Nerve bp transplantion; shunt; - Immunization history:: Adult Immunizations up to date. - Social history:: Smoking status: unknown. ROS: 18:04 Constitutional: Negative for fever, chills, and weight loss, ci 18:04 Abdomen/GI: Positive for abdominal pain, 18:04 Back: Positive for pain with movement, of the right low back, Exam: 18:04 Constitutional: This is a well developed, well nourished patient who is awake, alert, ci and in no acute distress. Head/Face: Normocephalic, atraumatic. Eyes: Pupils equal round and reactive to light, extra-ocular motions intact. Lids and lashes normal. Conjunctiva and sclera are non-icteric and not injected. Cornea within normal limits. Periorbital areas with no swelling, redness, or edema. ENT: Nares patent. No nasal discharge, no septal abnormalities noted. Tympanic membranes are normal and external auditory canals are clear. Oropharynx with no redness, swelling, or masses, exudates, or evidence of obstruction, uvula midline. Mucous membranes moist. Neck: Trachea midline, no thyromegaly or masses palpated, and no cervical lymphadenopathy. Supple, full range of motion without nuchal rigidity, or vertebral point tenderness. No Meningismus. Chest/axilla: Normal chest wall appearance and motion. Nontender with no deformity. No lesions are appreciated. Cardiovascular: Regular rate and rhythm with a normal S1 and S2. No gallops, murmurs, or rubs. Normal PMI, no JVD. No pulse deficits. Respiratory: Lungs have equal breath sounds bilaterally, clear to auscultation and percussion. No rales, rhonchi or wheezes noted. No increased work of breathing, no retractions or nasal flaring. Abdomen/GI: Soft, non-tender, with normal bowel sounds. No distension or tympany. No guarding or rebound. No evidence of tenderness throughout. Back: No spinal tenderness. No costovertebral tenderness. Full range of motion. Skin: Warm, dry with normal turgor. Normal color with no rashes, no lesions, and no evidence of cellulitis. MS/ Extremity: Pulses equal, no cyanosis. Neurovascular intact. Full, normal range of motion. Neuro: Awake and alert, GCS 15, oriented to person, place, time, and situation. Cranial nerves II-XII grossly intact. Motor strength 5/5 in all extremities. Sensory grossly intact. Cerebellar exam normal. Normal gait. Psych: Awake, alert, with orientation to person, place and time. Behavior, mood, and affect are within normal limits. Vital Signs: 14:33 BP 179 / 108; Pulse 91; Resp 16; Temp 98; Pulse Ox 100% ; bp 19:15 BP 148 / 103; Pulse 75; Resp 16; Pulse Ox 98% ; jj7 20:15 BP 164 / 84; Pulse 85; Resp 16; Pulse Ox 98% ; jj7 20:56 BP 163 / 95; Pulse 75; Resp 16; Pulse Ox 99% ; jj7 21:14 BP 158 / 85; Pulse 64; Resp 17; Pulse Ox 99% ; jj7 MDM: 15:49 Patient medically screened. ci 18:04 Differential diagnosis: arthritis, Fracture Joint Injury Ligament Injury spinal injury, ci sprain, Abdominal pain, shunt malfunction. Data reviewed: vital signs, nurses notes, old medical records, lab test result(s), radiologic studies. Test considered but Not performed: CT: CT abdomen/pelvis was considered but not warranted at this time as patient's abdomen is soft, nontender, nondistended, no peritoneal signs. Reports he moved his shunt and wanted to make sure his shunt was still in place. Back is atraumatic, no midline spinal tenderness. Red flag symptoms reviewed with patient, denies. Will obtain imaging to confirm shunt placement, CT lumbar and administer pain meds.. Care significantly affected by the following chronic conditions: Hypertension. 08/05 16:24 Order name: CBC with Diff; Complete Time: 18:41 ci 08/05 16:24 Order name: CMP; Complete Time: 18:41 ci 08/05 18:41 Interpretation: CRE 1.33. ci 08/05 16:24 Order name: Lipase; Complete Time: 18:41 ci 08/05 16:24 Order name: Urinalysis w/ reflexes; Complete Time: 20:46 ci 08/05 16:24 Order name: Shuntogram XRAY; Complete Time: 18:04 ci 08/05 18:42 Interpretation: Per Radiologist's finding(s): IMPRESSION: Right frontal approach ci ventriculoperitoneal shunt as above. 08/05 16:24 Order name: CT Head Brain wo Cont; Complete Time: 17:39 ci 08/05 18:41 Interpretation: Per Radiologist's finding(s): IMPRESSION: No evidence of an acute ci intracranial process. Stable ventricular caliber. 08/05 16:24 Order name: CT Lumbar Spine Wo Con; Complete Time: 18:04 ci 08/05 18:42 Interpretation: Per Radiologist's finding(s): IMPRESSION: No acute lumbar spine ci fracture or subluxation. 08/05 16:24 Order name: IV Saline Lock; Complete Time: 18:07 ci 08/05 16:24 Order name: Labs collected and sent; Complete Time: 18:07 ci Administered Medications: 18:07 Drug: morphine IVP or IV 4 mg IVP once over 4 mins Route: IVP; Infused Over: 4 mins; ll1 Site: left antecubital; 19:07 Follow up: Response: No adverse reaction; Pain is decreased me1 18:55 Drug: Cyclobenzaprine PO 10 mg PO once Route: PO; ld1 19:07 Follow up: Response: No adverse reaction me1 20:54 Drug: fentaNYL (PF) IVP 50 mcg IVP once Route: IVP; Site: left antecubital; jj7 21:13 Follow up: Response: Marked relief of symptoms jj7 Disposition Summary: 08/05/23 20:48 Discharge Ordered Notes: Location: Home ci Condition: Stable ci Diagnosis - Low back pain ci - Lumbago with sciatica, right side ci Followup: ci - With: Private Physician - When: 1 - 2 days - Reason: Recheck today's complaints, Re-evaluation by your physician Discharge Instructions: - Discharge Summary Sheet ci - Acute Back Pain, Adult ci - Sciatica ci - Sciatica, [id number] ci - Back Exercises, [id number] ci Forms: - Medication Reconciliation Form ci - Thank You Letter ci - Antibiotic Education ci - Prescription Opioid Use ci - Patient Portal Instructions ci - Leadership Thank You Letter ci Prescriptions: - lidocaine 4 % adhesive patch, medicated - apply 1 patch TOPICAL route every 12 hours as needed for pain; 30 patch; ci Refills: 0, Product Selection Permitted - Cyclobenzaprine 10 mg Oral tablet - take 1 tablet ORAL route every 8 hours As needed; 15 tablet; Refills: 0, ci Product Selection Permitted - Medrol (Elpidio) 4 mg Oral Tablets, Dose Pack - take 1 tablet ORAL route as directed - follow package instructions; 1 packet; ci Refills: 0, Product Selection Permitted Signatures: Dispatcher [employer] Milind Pierce RN RN bp Lewis, Lynsay, RN RN ll1 Chelsey Orellana RN RN ld1 Keily Davila RN RN jj7 Tiera Keen Cinthia Lou RN me1
--- NOTE | 2023-08-05 20:49 | ER ---
Nurse's Notes [facility] Name: Terry Akins Sr Age: 43 yrs Sex: Male : 1980 Arrival Date: 08/05/2023 Time: 14:06 Bed 7 Private MD: Diagnosis: Low back pain;Lumbago with sciatica, right side Presentation: 08/05 14:33 Chief complaint: Patient states: BACK AND RIGHT SCIATIC PATTERN PAIN x1.5 WK AFTER bp SLEEPING ON FLOOR. Coronavirus screen: At this time, the client does not indicate any symptoms associated with coronavirus-19. Ebola Screen: No symptoms or risks identified at this time. Initial Sepsis Screen: Does the patient meet any 2 criteria? No. Patient's initial sepsis screen is negative. Does the patient have a suspected source of infection? No. Patient's initial sepsis screen is negative. Risk Assessment: Do you want to hurt yourself or someone else? Patient reports no desire to harm self or others. Onset of symptoms is unknown. 14:33 Method Of Arrival: Ambulatory bp 14:33 Acuity: SARITHA 4 bp Triage Assessment: 14:33 General: Appears distressed, uncomfortable, Behavior is calm, cooperative, appropriate bp for age. Pain: Complains of pain in back. Musculoskeletal: Circulation, motion, and sensation intact. Historical: - Allergies: 14:33 No Known Allergies; bp - PMHx: 14:33 Hypertensive disorder; Migraine; bp - PSHx: 14:33 Appendectomy; carpal tunnel right; hernia; left hand tendonitis; Mastoid surgery; Nerve bp transplantion; shunt; - Immunization history:: Adult Immunizations up to date. - Social history:: Smoking status: unknown. Screenin:15 [facility] ED Fall Risk Assessment (Adult) History of falling in the last 3 months, jj7 including since admission No falls in past 3 months (0 pts) Confusion or Disorientation No (0 pts) Intoxicated or Sedated No (0 pts) Impaired Gait No (0 pts) Mobility Assist Device Used No (0 pt) Altered Elimination No (0 pt) Score/Fall Risk Level 0 - 2 = Low Risk Oriented to surroundings, Maintained a safe environment, Educated pt \T\ family on fall prevention, incl call for assistance when getting out of bed. Abuse screen: Denies threats or abuse. Nutritional screening: No deficits noted. Tuberculosis screening: No symptoms or risk factors identified. Assessment: 16:20 Reassessment: No changes from previously documented assessment. Patient and/or family ll1 updated on plan of care and expected duration. Pain level reassessed. 18:07 Reassessment: No changes from previously documented assessment. Patient and/or family ll1 updated on plan of care and expected duration. Pain level reassessed. 19:15 Reassessment: Patient is alert, oriented x 3, equal unlabored respirations, skin jj7 warm/dry/pink. Pain: Complains of pain in back. Neuro: No deficits noted. Vital Signs: 14:33 BP 179 / 108; Pulse 91; Resp 16; Temp 98; Pulse Ox 100% ; bp 19:15 BP 148 / 103; Pulse 75; Resp 16; Pulse Ox 98% ; jj7 20:15 BP 164 / 84; Pulse 85; Resp 16; Pulse Ox 98% ; jj7 20:56 BP 163 / 95; Pulse 75; Resp 16; Pulse Ox 99% ; jj7 21:14 BP 158 / 85; Pulse 64; Resp 17; Pulse Ox 99% ; jj7 ED Course: 14:08 Patient arrived in ED. ts1 14:34 Triage completed. bp 14:34 Arm band placed on. bp 15:15 Tiera Keen is Attending Physician. ci 17:03 CT Head Brain wo Cont In Process Unspecified. EDMS 17:04 CT Lumbar Spine Wo Con In Process Unspecified. EDMS 17:19 Shuntogram XRAY In Process Unspecified. EDMS 17:58 Missed attempt(s): 22 gauge in right antecubital area. Bleeding controlled, band aid ll1 applied, catheter tip intact. 18:00 Inserted saline lock: 22 gauge in left antecubital area, using aseptic technique. Blood ll1 collected. 18:24 Patient placed in an exam room, on a stretcher. ll1 19:15 Patient has correct armband on for positive identification. Bed in low position. Call jj7 light in reach. Side rails up X 1. 19:15 No provider procedures requiring assistance completed. jj7 21:15 IV discontinued, intact, bleeding controlled, No redness/swelling at site. Pressure jj7 dressing applied. Administered Medications: 18:07 Drug: morphine IVP or IV 4 mg IVP once over 4 mins Route: IVP; Infused Over: 4 mins; ll1 Site: left antecubital; 19:07 Follow up: Response: No adverse reaction; Pain is decreased me1 18:55 Drug: Cyclobenzaprine PO 10 mg PO once Route: PO; ld1 19:07 Follow up: Response: No adverse reaction me1 20:54 Drug: fentaNYL (PF) IVP 50 mcg IVP once Route: IVP; Site: left antecubital; jj7 21:13 Follow up: Response: Marked relief of symptoms jj7 Medication: 19:15 VIS not applicable for this client. jj7 Outcome: 20:48 Discharge ordered by . ci 21:14 Discharged to home ambulatory, with family, mayela 21:14 Condition: improved 21:14 Discharge instructions given to patient, Instructed on discharge instructions, medication usage, Demonstrated understanding of instructions, medications, Prescriptions given X 3, 21:15 Patient left the ED. jj7 Signatures: Dispatcher [employer] EDMilind Reed RN RN bp Lewis, Lynsay, RN RN ll1 Chelsey Orellana RN RN ld1 Keily Davila RN RN jj7 Angelica Portillo, ARSALAN PAS 1 Cinthia Lou RN RN wv1 Tiera Keen Corrections: (The following items were deleted from the chart) 18:25 16:40 Patient placed in an exam room, on a stretcher, ll1 ll1
[2023-08-05 21:31] VITALS: TEMP 98
[2023-08-05 21:45] VITALS: BP 158/85; O2SAT 99
== END ==
LOC: ER 14:06
DX: M54.41 Lumbago with sciatica, right side (principal)
CPT/HCPCS: 36415; 49427; 70450; 72131; 75809; 80053; 81001; 83690; 85025; 96374; 96375; 99284; J3010

== ENCOUNTER → 2023-08-27 | Emergency (ER) | payer OTHER ==
[~2023-08-27] MED LIST changes: -CYCLOBENZAPRINE 10 MG TAB ONE; +DIPHENHYDRAMINE 50 MG/ML VIAL ONE; -FENTANYL CITR 100 MCG/2 ML ONE; +KETOROLAC 30 MG/ML INJ ONE; +METOCLOPRAMIDE 10 MG/2mL INJ ONE; -MORPHINE 4 MG/ML SYR ONE; +Magnesium Sulfate 2gm IVPB 2 G/50 ML BAG IV ONE; +NA CHLORIDE 0.9% 1,000 ML ONE
[2023-08-27 19:41] LABS: Hematocrit 44.8 % (39.6-49.0); Lymphocytes % 33.9 % (15.3-44.8); MCV 83.6 fL (80-100); MPV 8.8 fL (7.6-11.3); Platelets 197 thou/uL (152-406); RBC Red Blood Cell Count 5.36 M/uL (4.33-5.43)
--- NOTE | 2023-08-27 19:54 | RAD REPORT ---
[facility] CLINICAL HISTORY: dyspn;Dyspnea COMPARISON: Chest Single View dated 03/08/2023; Chest Pa And Lat (2 Views) dated 02/08/2023; Abdomen 1 View (KUB) dated 05/11/2022; Chest Single View dated 03/26/2022 TECHNIQUE: Portable AP view of the chest. FINDINGS: The lungs are clear. No pneumothorax or effusion. The cardiomediastinal contours are unre markable. IMPRESSION: No acute cardiopulmonary process.
[2023-08-27 20:06] LABS: ALT/SGPT 51 U/L (16-61); Albumin 3.6 g/dL (3.4-5.0); Alkaline Phosphatase 126 U/L (45-117); BUN Blood Urea Nitrogen 9 mg/dL (7-18); Bicarbonate 28 mEq/L (21-32); Bilirubin Total 0.7 mg/dL (0.2-1.0); Glomerular Filtration Rate 68 ml/min (=/>90); Glucose Level 98 mg/dL (74-106); NT PRO-BNP 273 pg/mL (<125); Sodium Level 141 mEq/L (136-145); Troponin High Sensitivity 14.7 pg/mL (<58.9)
[2023-08-27 20:07] LABS: AST/SGOT 25 U/L (15-37); Bilirubin Direct < 0.1 mg/dL (0-0.2); Bilirubin Indirect, Calculated ND mg/dL (0.2-0.8); Potassium 3.7 mEq/L (3.5-5.1)
--- NOTE | 2023-08-27 20:25 | RAD REPORT ---
EXAM DESCRIPTION: CT - Head Brain Wo Cont - 08/27/2023 8:01 pm CLINICAL HISTORY: HEADACHE COMPARISON: Head Brain Wo Cont dated 08/05/2023; Head Brain Wo Cont dated 04/11/2023 TECHNIQUE: Noncontrast head CT images were obtained without IV contrast. Multiplanar reformats were generated and reviewed. All CT scans are performed using dose optimization technique as appropriate and may include automated exposure control or mA/KV adjustment according to patient size. FINDINGS: No intracranial hemorrhage, mass, or edema. Midline structures are unremarkable. Stable ventricular caliber. Stable right anterior approach ventriculostomy catheter. Albert-white matter differentiation is preserved, without evidence of acute infarct. No abnormal extra- axial fluid collections. Sequelae of left canal wall up mastoidectomy again seen. Visualized portions of the paranasal sinuses are clear. No acute bony findings. IMPRESSION: No evidence of an acute intracranial process.
--- NOTE | 2023-08-27 21:07 | ER ---
Nurse's Notes [facility] Name: Terry Akins Sr Age: 43 yrs Sex: Male : 1980 Arrival Date: 08/27/2023 Time: 18:05 Bed 14 Private MD: Diagnosis: Headache Presentation: 08/27 18:19 Chief complaint: Patient states: he has had a bad headache since he woke up this ap3 morning. patient states he has been taking tylenol throughout the day with no relief. Patient also reports nausea, vomiting and shortness of breath. Coronavirus screen: At this time, the client does not indicate any symptoms associated with coronavirus-19. Ebola Screen: No symptoms or risks identified at this time. Initial Sepsis Screen: Does the patient meet any 2 criteria? HR > 90 bpm. Does the patient have a suspected source of infection? No. Patient's initial sepsis screen is negative. Risk Assessment: Do you want to hurt yourself or someone else? Patient reports no desire to harm self or others. Onset of symptoms was August 27, 2023. 18:19 Method Of Arrival: Wheelchair ap3 18:27 Acuity: SARITHA 2 ap3 Triage Assessment: 18:21 Headache History: The patient has had previous headaches. General: Appears ap3 uncomfortable, Behavior is cooperative, restless. Pain: Complains of pain in face Pain currently is 10 out of 10 on a pain scale. Pain began when he woke up this morning at approx 0800 Also complains of nausea. Neuro: Level of Consciousness is awake, alert, obeys commands, Oriented to person, place, time, situation, Appropriate for age. Neuro: Reports headache. Cardiovascular: Patient's skin is warm and dry. Respiratory: Airway is patent Respiratory effort is even, unlabored, Respiratory pattern is regular, symmetrical. Historical: - Allergies: 18:21 No Known Allergies; ap3 - PMHx: 18:21 Hypertensive disorder; Migraine; ap3 - PSHx: 18:21 Appendectomy; carpal tunnel right; hernia; left hand tendonitis; Mastoid surgery; Nerve ap3 transplantion; shunt; - Immunization history:: Adult Immunizations. - Social history:: Smoking status: Patient denies any tobacco usage or history of. - Family history:: not pertinent. Screenin:23 Abuse screen: Denies threats or abuse. Nutritional screening: No deficits noted. ap3 Tuberculosis screening: No symptoms or risk factors identified. 19:50 [facility] ED Fall Risk Assessment (Adult) History of falling in the last 3 months, la4 including since admission No falls in past 3 months (0 pts) Confusion or Disorientation No (0 pts) Intoxicated or Sedated No (0 pts) Impaired Gait No (0 pts) Mobility Assist Device Used No (0 pt) Altered Elimination No (0 pt) Score/Fall Risk Level 0 - 2 = Low Risk Oriented to surroundings, Hourly rounding (assess needs \T\ fall precautionary measures) done. Assessment: 19:50 Reassessment: Patient and/or family updated on plan of care and expected duration. Pain la4 level reassessed. Pt c/o headache with sensitivity to light. IV medications administered, lights turned out, placed on classroom monitor. No active vomiting at this time. Will continue to monitor. Pain: Complains of pain in top of head, forehead, right buddhism, left buddhism, left frontal area, left side of the back of head, left temporal area, left occipital area, left base of the skull, right frontal area, right side of the back of head, right temporal area, right side of forehead, right occipital area and right base of the skull Pain does not radiate. Pain currently is 20 out of 10 on a pain scale. Quality of pain is described as squeezing, Pain began 1 day ago. Is continuous, Alleviated by nothing. Aggravated by Light. Neuro: No deficits noted. Navarro Agitation-Sedation Scale (RASS): +1 Restless Level of Consciousness is awake, alert, obeys commands, Oriented to person, place, time, situation, Appropriate for age Reports headache in entire parietal area, frontal area, occipital area. Cardiovascular: No deficits noted. Denies chest pain, Heart tones S1 S2 Capillary refill < 3 seconds is brisk Patient's skin is warm and dry. Pulses are all present. Rhythm is sinus rhythm. Respiratory: No deficits noted. Airway is patent Respiratory effort is even, unlabored, Respiratory pattern is regular, symmetrical, Breath sounds are clear bilaterally. GI: No deficits noted. No signs and/or symptoms were reported involving the gastrointestinal system. : No deficits noted. No signs and/or symptoms were reported regarding the genitourinary system. EENT: No deficits noted. No signs and/or symptoms were reported regarding the EENT system. EENT:. Derm: No deficits noted. No signs and/or symptoms reported regarding the dermatologic system. Musculoskeletal: No deficits noted. No signs and/or symptoms reported regarding the musculoskeletal system. Vital Signs: 18:19 BP 134 / 95; Pulse 111; Resp 17; Temp 97.8; Pulse Ox 100% ; Weight 145.15 kg; Pain ap3 10/10; 19:50 BP 157 / 101; Pulse 71; Resp 16; Pulse Ox 99% ; Pain 10/10; la4 20:00 BP 174 / 87; Pulse 62; Pulse Ox 100% ; la4 20:30 BP 194 / 87; Pulse 56; Pulse Ox 97% ; la4 21:00 BP 174 / 81; Pulse 60; Pulse Ox 100% ; Pain 0/10; la4 18:19 Pain Scale: Adult ap3 19:50 Pain Scale: Adult la4 21:00 Pain Scale: Adult la4 19:50 headache la4 Vitals: 19:50 Cardiac Rhythm Assessment Regular. la4 Omar Coma Score: 19:50 Eye Response: spontaneous(4). Motor Response: obeys commands(6). Verbal Response: la4 oriented(5). Total: 15. 21:00 Eye Response: spontaneous(4). Motor Response: obeys commands(6). Verbal Response: la4 oriented(5). Total: 15. ED Course: 18:06 Patient arrived in ED. rg4 18:10 Rain Stevens FNP-C is [facility]. kb 18:10 Kobi Martines MD is Attending Physician. kb 18:21 Triage completed. ap3 18:23 Arm band placed on right wrist. ap3 18:57 Kobi Martines MD is Attending Physician. rt 19:11 Patrick Dyer RN is Primary Nurse. la4 19:11 Report received from Ghislaine Hammond RN care assumed at this time. Orders pending completion. la4 19:24 NT PRO-BNP Sent. la4 19:24 Troponin HS Sent. la4 19:24 Magnesium Sent. la4 19:24 LFT's Sent. la4 19:24 CBC with Diff Sent. la4 19:24 Basic Metabolic Panel Sent. la4 19:33 XRAY Chest (1 view) In Process Unspecified. EDMS 19:50 Patient has correct armband on for positive identification. Placed in gown. Bed in low la4 position. Call light in reach. Side rails up X2. Provided Education on: Plan of care. Client placed on continuous cardiac and pulse oximetry monitoring. NIBP monitoring applied. 19:50 Inserted saline lock: 20 gauge in right antecubital area, using aseptic technique. la4 Blood collected. 20:01 CT Head Brain wo Cont In Process Unspecified. EDMS 20:06 Attending Physician role handed off by Kobi Martines MD ec2 20:06 Leo Smith MD is Attending Physician. ec2 21:00 No provider procedures requiring assistance completed. IV discontinued, intact, la4 bleeding controlled, No redness/swelling at site. Pressure dressing applied. Administered Medications: 19:49 Drug: metoCLOPramide IVP 10 mg IVP once; over 1 to 2 minutes Route: IVP; Site: right la4 antecubital; 19:49 Drug: diphenhydrAMINE IVP 25 mg IVP once Route: IVP; Site: right antecubital; la4 19:49 Drug: Ketorolac IVP 15 mg IVP once Route: IVP; Site: right antecubital; la4 19:50 Drug: NS 0.9% IV 1000 ml IV at 1 bolus Per protocol; 1000 mL bolus Route: IV; Rate: 1 la4 bolus; Site: right antecubital; 19:50 Drug: Magnesium Sulfate IVPB 2 grams IVPB once over 2 hrs Route: IVPB; Infused Over: 2 la4 hrs; Site: right antecubital; Medication: 19:50 VIS not applicable for this client. la4 Outcome: 21:00 Discharged to home ambulatory, la4 21:00 Condition: improved 21:00 Discharge instructions given to patient, Instructed on discharge instructions, follow up and referral plans. Demonstrated understanding of instructions, follow-up care, 21:06 Discharge ordered by . ec2 21:22 Patient left the ED. la4 Signatures: Dispatcher [employer] EDMS Rain Stevens, REESE RITCHIEP-Diane Bryan4 Lisa Fuller RN RN ap3 Kobi Martines MD MD rt Leo Smith MD MD ec2 Patrick Dyer RN RN la4 Corrections: (The following items were deleted from the chart) 18: 18:19 Acuity: SARITHA 3 ap3 ap3 20:02 19:50 No provider procedures requiring assistance completed. la4 la4 20:02 19:50 Inserted saline lock: 20 gauge in right antecubital area, using aseptic la4 technique. la4
--- NOTE | 2023-08-27 21:07 | EDPHYS ---
Physician Documentation [facility] Name: Terry Akins Sr Age: 43 yrs Sex: Male : 1980 Arrival Date: 08/27/2023 Time: 18:05 Bed 14 Private MD: ED Physician Leo Smith HPI: 08/27 19:48 This 43 yrs old Black Male presents to ER via Wheelchair with complaints of Pain All rt Over, Headache. 19:48 Patient presents to the ED with a headache. He does have chronic headaches, recovery rt states this is worse headache that he has had. It is generalized. He has associated shortness of breath, nausea. Denies photophobia, phonophobia. Patient does report having a [employer]ARY[employer] TE[employer]ER shunt in place that was reportedly over shunting. Physical complaints this time, symptoms are moderate severity, no other aggravating elevating factors.. Historical: - Allergies: 18:21 No Known Allergies; ap3 - PMHx: 18:21 Hypertensive disorder; Migraine; ap3 - PSHx: 18:21 Appendectomy; carpal tunnel right; hernia; left hand tendonitis; Mastoid surgery; Nerve ap3 transplantion; shunt; - Immunization history:: Adult Immunizations. - Social history:: Smoking status: Patient denies any tobacco usage or history of. - Family history:: not pertinent. ROS: 19:48 Constitutional: Negative for fever, chills, and weight loss, Cardiovascular: Negative rt for chest pain, palpitations, and edema, MS/Extremity: Negative for injury and deformity, Skin: Negative for injury, rash, and discoloration, Psych: Negative for depression, anxiety, suicide ideation, homicidal ideation, and hallucinations, 19:48 Respiratory: Positive for shortness of breath, Negative for cough, 19:48 Abdomen/GI: Positive for nausea, Negative for abdominal pain, 19:48 Neuro: Positive for headache, Negative for altered mental status, Exam: 19:48 Constitutional: This is a well developed, well nourished patient who is awake, alert, rt and in no acute distress. Head/Face: Normocephalic, atraumatic. Chest/axilla: Normal chest wall appearance and motion. Nontender with no deformity. No lesions are appreciated. Cardiovascular: Regular rate and rhythm with a normal S1 and S2. No gallops, murmurs, or rubs. Normal PMI, no JVD. No pulse deficits. Respiratory: Lungs have equal breath sounds bilaterally, clear to auscultation and percussion. No rales, rhonchi or wheezes noted. No increased work of breathing, no retractions or nasal flaring. Abdomen/GI: Soft, non-tender, with normal bowel sounds. No distension or tympany. No guarding or rebound. No evidence of tenderness throughout. Skin: Warm, dry with normal turgor. Normal color with no rashes, no lesions, and no evidence of cellulitis. MS/ Extremity: Pulses equal, no cyanosis. Neurovascular intact. Full, normal range of motion. Neuro: Awake and alert, GCS 15, oriented to person, place, time, and situation. Cranial nerves II-XII grossly intact. Motor strength 5/5 in all extremities. Sensory grossly intact. Cerebellar exam normal. Normal gait. Psych: Awake, alert, with orientation to person, place and time. Behavior, mood, and affect are within normal limits. Vital Signs: 18:19 BP 134 / 95; Pulse 111; Resp 17; Temp 97.8; Pulse Ox 100% ; Weight 145.15 kg; Pain ap3 10/10; 19:50 BP 157 / 101; Pulse 71; Resp 16; Pulse Ox 99% ; Pain 10/10; la4 20:00 BP 174 / 87; Pulse 62; Pulse Ox 100% ; la4 20:30 BP 194 / 87; Pulse 56; Pulse Ox 97% ; la4 21:00 BP 174 / 81; Pulse 60; Pulse Ox 100% ; Pain 0/10; la4 18:19 Pain Scale: Adult ap3 19:50 Pain Scale: Adult la4 21:00 Pain Scale: Adult la4 19:50 headache la4 Omar Coma Score: 19:50 Eye Response: spontaneous(4). Motor Response: obeys commands(6). Verbal Response: la4 oriented(5). Total: 15. 21:00 Eye Response: spontaneous(4). Motor Response: obeys commands(6). Verbal Response: la4 oriented(5). Total: 15. MDM: 18:10 Patient medically screened. kb 20:10 Data reviewed: vital signs. ED course: Patient signed out to me by previous physician, silke in brief patient arrives today due to concern for headache with history of [employer] shunt. Lab work was obtained, shows reassuring metabolic profile, reassuring CBC, BNP that is minimally elevated, troponin within normal ranges, reassuring chest x-ray. Plan is to follow-up CT scan of the head.. 21:05 ED course: CT scan of the head shows no acute intracranial abnormality. Will discharge ec2 home, patient with improving symptoms. Return precautions given.. 08/27 19:06 Order name: Basic Metabolic Panel; Complete Time: 20:10 rt 08/27 19:06 Order name: CBC with Diff; Complete Time: 20:10 rt 08/27 19:06 Order name: LFT's; Complete Time: 20:10 rt 08/27 19:06 Order name: Magnesium; Complete Time: 20:10 rt 08/27 19:06 Order name: NT PRO-BNP; Complete Time: 20:10 rt 08/27 19:06 Order name: Troponin HS; Complete Time: 20:10 rt 08/27 19:06 Order name: XRAY Chest (1 view); Complete Time: 20:10 rt 08/27 19:06 Order name: CT Head Brain wo Cont; Complete Time: 21:03 rt 08/27 19:06 Order name: EKG; Complete Time: 19:07 rt 08/27 19:06 Order name: Cardiac monitoring; Complete Time: 19:24 rt 08/27 19:06 Order name: EKG - Nurse/Tech; Complete Time: 19:24 rt 08/27 19:06 Order name: IV Saline Lock; Complete Time: 19:24 rt 08/27 19:06 Order name: Labs collected and sent; Complete Time: 19:24 rt 08/27 19:06 Order name: O2 Per Protocol; Complete Time: 19:24 rt 08/27 19:06 Order name: O2 Sat Monitoring; Complete Time: 19:24 rt Administered Medications: 19:49 Drug: metoCLOPramide IVP 10 mg IVP once; over 1 to 2 minutes Route: IVP; Site: right la4 antecubital; 19:49 Drug: diphenhydrAMINE IVP 25 mg IVP once Route: IVP; Site: right antecubital; la4 19:49 Drug: Ketorolac IVP 15 mg IVP once Route: IVP; Site: right antecubital; la4 19:50 Drug: NS 0.9% IV 1000 ml IV at 1 bolus Per protocol; 1000 mL bolus Route: IV; Rate: 1 la4 bolus; Site: right antecubital; 19:50 Drug: Magnesium Sulfate IVPB 2 grams IVPB once over 2 hrs Route: IVPB; Infused Over: 2 la4 hrs; Site: right antecubital; Disposition Summary: 08/27/23 21:06 Discharge Ordered Notes: Location: Home ec2 Condition: Stable ec2 Diagnosis - Headache ec2 Followup: ec2 - With: Private Physician - When: - Reason: Recheck today's complaints Discharge Instructions: - Discharge Summary Sheet ec2 - General Headache Without Cause ec2 Forms: - Medication Reconciliation Form ec2 - Thank You Letter ec2 - Antibiotic Education ec2 - Prescription Opioid Use ec2 - Patient Portal Instructions ec2 - Leadership Thank You Letter ec2 Signatures: Dispatcher [employer] Rain Chaparro FNP-C FNP-Lisa Gomez RN RN ap3 Kobi Martines MD MD rt Leo Smith MD MD ec2 Patrick Dyer RN RN la4
[2023-08-27 22:47] VITALS: TEMP 97.8
[2023-08-27 23:00] VITALS: BP 174/81; O2SAT 100
== END ==
LOC: ER 18:05
DX: R51.9 Headache, unspecified (principal); Z98.2 Presence of cerebrospinal fluid drainage device; I10 Essential (primary) hypertension
CPT/HCPCS: 85025; 80048; 36415; 83735; 80076; 84484; 83880; 70450; 71045; J3475; J2765; J1200; J7030; 93005

== ENCOUNTER → 2023-09-05 | Emergency (ER) | payer OTHER ==
[~2023-09-05] MED LIST changes: +FAMOTIDINE 20 MG/2 ML VIAL IV ONE; +MORPHINE 4 MG/ML SYR ONE; -Magnesium Sulfate 2gm IVPB 2 G/50 ML BAG IV ONE; +ONDANSETRON 4 MG/2 ML VIAL ONE
[2023-09-05 23:23] LABS: Hematocrit 45.2 % (39.6-49.0); Lymphocytes % 8.9 % (15.3-44.8); MCV 84.3 fL (80-100); MPV 8.7 fL (7.6-11.3); Platelets 209 thou/uL (152-406); RBC Red Blood Cell Count 5.36 M/uL (4.33-5.43)
[2023-09-05 23:51] LABS: Albumin 3.5 g/dL (3.4-5.0); Bilirubin Total 0.5 mg/dL (0.2-1.0); Protein, Total 7.6 g/dL (6.4-8.2)
[2023-09-05 23:53] LABS: Potassium 4.2 mEq/L (3.5-5.1)
[2023-09-06 02:19] LABS: Specific Gravity 1.027 (1.005-1.030); Urine Bilirubin NEGATIVE (Negative); Urine Blood Negative (Negative); Urine Clarity Clear (Clear); Urine Color Light-Yellow (Yellow); Urine Glucose NEGATIVE (Negative); Urine Protein NEGATIVE (Negative); Urine Urobilinogen Normal (Normal); Urine pH 5.5 (5.0-7.0)
--- NOTE | 2023-09-06 03:35 | ER ---
Nurse's Notes [facility] Name: Terry Akins Sr Age: 43 yrs Sex: Male : 1980 Arrival Date: 09/05/2023 Time: 22:03 Bed 15 Private MD: Diagnosis: Chest pain, unspecified;Abdominal pain, unspecified;Nausea with vomiting, unspecified Presentation: 09/05 22:14 Chief complaint:. Chief complaint: Chief complaint: EMS states: toned out for sudden me1 onset of N/V/D that started about an hour ago. c/o RUQ and LUQ abdominal pain. Per patient emesis has dark and bright red blood in it. Stool is watery and dark colored. 20g R hand established and zofran 4 mg IV administered, effective. Coronavirus screen: Vaccine status: Patient reports receiving the 2nd dose of the covid vaccine. Ebola Screen: No symptoms or risks identified at this time. Initial Sepsis Screen: Does the patient meet any 2 criteria? No. Patient's initial sepsis screen is negative. Does the patient have a suspected source of infection? No. Patient's initial sepsis screen is negative. Risk Assessment: Do you want to hurt yourself or someone else? Patient reports no desire to harm self or others. Onset of symptoms was September 05, 2023 at 21:00. 22:14 Method Of Arrival: EMS nm1 22:14 Acuity: SARITHA 4 me1 Triage Assessment: 22:20 General: Appears uncomfortable, ill, obese, well groomed, well developed, Behavior is me1 cooperative, appropriate for age, anxious, Reports feeling ill for sudden onset of N/V/D that started about an hour ago. Per patient emesis has dark and bright red blood in it. Stool is watery and dark colored. 20g R hand established and zofran 4 mg IV administered, effective. Pain: Complains of pain in right upper quadrant and left upper quadrant Pain does not radiate. Pain currently is 8 out of 10 on a pain scale. Quality of pain is described as crampy, Pain began suddenly, 1 hour ago. Is continuous. Neuro: Level of Consciousness is awake, alert, obeys commands, Oriented to person, place, time, situation, Appropriate for age. Cardiovascular: Capillary refill < 3 seconds Patient's skin is warm and dry. Respiratory: Airway is patent Trachea midline Respiratory effort is even, unlabored, Respiratory pattern is regular, symmetrical. GI: Reports upper abdominal pain, cramping, diarrhea, nausea, vomiting, since one hour ago. Historical: - Allergies: 22:20 No Known Allergies; me1 - PMHx: 22:20 Hypertensive disorder; Migraine; me1 - PSHx: 22:20 Appendectomy; carpal tunnel right; hernia; Mastoid surgery; left hand tendonitis; Nerve me1 transplantion; shunt; - Immunization history:: Adult Immunizations unknown. - Social history:: Smoking status: Reported history of juuling and/or vaping. Screenin:[address] [facility] ED Fall Risk Assessment (Adult) History of falling in the last 3 months, nw1 including since admission No falls in past 3 months (0 pts) Confusion or Disorientation No (0 pts) Intoxicated or Sedated No (0 pts) Impaired Gait No (0 pts) Mobility Assist Device Used No (0 pt) Altered Elimination No (0 pt) Score/Fall Risk Level 0 - 2 = Low Risk Oriented to surroundings, Maintained a safe environment, Educated pt \T\ family on fall prevention, incl call for assistance when getting out of bed, Assessed \T\ reinforced patient's understanding of fall precautions, Provided non-skid footwear, Hourly rounding (assess needs \T\ fall precautionary measures) done. Abuse screen: Denies threats or abuse. Denies injuries from another. Nutritional screening: Obese. Tuberculosis screening: No symptoms or risk factors identified. Assessment: 22:10 Reassessment: Report received from BRYN Vicente. Assumed care at this time. Pt noted in nw1 bed. Gown given for patient to change into. Call light at bedside .Pt endorses nausea and vomiting. Will return to assess. 22:30 General: Appears uncomfortable, obese, Behavior is cooperative, fussy. nw1 22:30 Reassessment: Pt states that he has a shunt placed in his head that has gotten loose in nw1 abdomen. Pt states he has gastroparesis and ate a lot of meat which causes him pain. Pain: Complains of pain in abdomen. Cardiovascular: No deficits noted. Denies chest pain, palpitations, shortness of breath. GI: Abdomen is obese, Bowel sounds present X 4 quads. Abd is soft and non tender X 4 quads. Reports diarrhea, nausea, vomiting. Derm: Skin is intact, is healthy with good turgor, Skin is dry, Skin is pink, warm \T\ dry. normal. Musculoskeletal:. Vital Signs: 00:15 BP 145 / 79; Pulse 84; Pulse Ox 98% on R/A; nw1 22:14 BP 154 / 89; Pulse 81; Resp 20; Temp 98.2(O); Pulse Ox 98% on R/A; Weight 145.15 kg; me1 Height 6 ft. 3 in. ; Pain 8/10; 22:15 BP 152 / 82; Pulse 86; Pulse Ox 98% on R/A; nw1 22:30 BP 150 / 90; Pulse 95; Resp 16; Pulse Ox 100% on R/A; nw1 23:00 BP 121 / 94; Pulse 84; Pulse Ox 100% on R/A; nw1 23:30 BP 166 / 89; Pulse 80; Pulse Ox 100% on R/A; nw1 09/06 00:00 BP 162 / 79; Pulse 79; Pulse Ox 98% ; nw1 00:30 BP 158 / 84; Pulse 96; Pulse Ox 99% on R/A; nw1 01:30 BP 170 / 98; Pulse 98; Pulse Ox 99% on R/A; nw1 02:00 BP 133 / 85; Pulse 98; Pulse Ox 99% on R/A; nw1 02:30 BP 163 / 89; Pulse 78; Pulse Ox 97% on R/A; nw1 03:51 BP 142 / 79; Pulse 82; Resp 17; Pulse Ox 98% ; nw1 09/05 22:14 Body Mass Index 40.00 (145.15 kg, 190.5 cm) me1 22:14 Pain Scale: Adult me1 [place] Coma Score: 09/05 22:30 Eye Response: spontaneous(4). Motor Response: obeys commands(6). Verbal Response: nw1 oriented(5). Total: 15. ED Course: 22:10 Inserted Maintain EMS IV. Dressing intact. Good blood return noted. Site clean \T\ dry. nw1 Gauge \T\ site: 20 right hand. 22:14 Patient arrived in ED. me1 22:14 [facility] cp 22:14 Stephane Rizvi MD is Attending Physician. cp 22:20 Triage completed. me1 22:20 Arm band placed on Patient placed in an exam room. me1 22:30 Patient has correct armband on for positive identification. Placed in gown. Bed in low nw1 position. Call light in reach. Side rails up X2. Provided Education on: POC. . Client placed on continuous cardiac and pulse oximetry monitoring. NIBP monitoring applied. quality assurance monitor final on. Pulse ox on. NIBP on. Door closed. Warm blanket given. 22:30 No provider procedures requiring assistance completed. Inserted saline lock: 20 gauge nw1 in right antecubital area, using aseptic technique. Blood collected. 23:14 CBC with Diff Sent. nw1 23:14 CMP Sent. nw1 23:14 Lipase Sent. nw1 23:14 Urinalysis w/ reflexes Sent. nw1 23:14 Influenza Screen (a \T\ B) Sent. nw1 23:14 COVID-19 SARS RT PCR Sent. nw1 23:16 Martha Hernadez, RN is Primary Nurse. nw1 23:36 XRAY Chest (1 view) In Process Unspecified. EDMS 09/06 01:11 CT Chest, Abdomen, Pelvis - W/Contrast In Process Unspecified. EDMS 03:51 IV discontinued, intact, bleeding controlled, No redness/swelling at site. Pressure nw1 dressing applied. Administered Medications: 09/05 23:12 Drug: Ondansetron IVP 4 mg IVP once; over 2 minutes Route: IVP; Site: right antecubital;nw1 23:12 Drug: Famotidine IVP 20 mg IVP once; dilute with 10 mL 0.9% NaCl; give over 2 minutes nw1 Route: IVP; Site: right antecubital; 23:57 Drug: morphine IVP or IV 4 mg IVP once over 4 mins Route: IVP; Infused Over: 4 mins; nw1 Site: right antecubital; 09/06 01:09 Drug: Ketorolac IVP 30 mg IVP once Route: IVP; Site: right antecubital; nw1 01:40 Drug: NS 0.9% IV 1000 ml IV at 1 bolus Per protocol; 1000 mL bolus Route: IV; Rate: 1 nw1 bolus; Site: right antecubital; 01:40 Drug: metoCLOPramide IVP 10 mg IVP once; over 1 to 2 minutes Route: IVP; Site: right nw1 antecubital; 01:40 Drug: diphenhydrAMINE IVP 25 mg IVP once Route: IVP; Site: right antecubital; nw1 01:40 Drug: Ondansetron IVP 4 mg IVP once; over 2 minutes Route: IVP; Site: right antecubital;nw1 Medication: 09/05 22:30 VIS not applicable for this client. nw1 Outcome: 09/06 03:34 Discharge ordered by . sunil 03:51 Discharged to home ambulatory, nw1 03:51 Condition: stable 03:51 Discharge instructions given to patient, 04:49 Patient left the ED. nw1 Signatures: Dispatcher [employer] EDMS Talon Lakhani PA PA cp Eddleman, Michelle, RN RN nm1 Martha Hernadez RN RN nw1
--- NOTE | 2023-09-06 03:35 | EDPHYS ---
Physician Documentation [facility] Name: Terry Akins Sr Age: 43 yrs Sex: Male : 1980 Arrival Date: 09/05/2023 Time: 22:03 Bed 15 Private MD: ED Physician Stephane Rizvi HPI: 09/05 23:00 This 43 yrs old Black Male presents to ER via EMS with complaints of cp Nausea/Vomiting/Diarrhea. 23:00 The patient presents to the emergency department with nausea, that is moderate, cp vomiting, that is intermittent, described as blood streaked, diarrhea, abdominal pain, of the right upper quadrant and left upper quadrant, described as constant. Onset: The symptoms/episode began/occurred suddenly, just prior to arrival. Possible causes: history of PHOTO INTERN shunt placement. Associated signs and symptoms: Pertinent negatives: constipation, fever. Severity of symptoms: in the emergency department the symptoms are unchanged despite EMS interventions. 23:00 The patient has experienced similar episodes in the past, multiple times. cp Historical: - Allergies: 22:20 No Known Allergies; me1 - PMHx: 22:20 Hypertensive disorder; Migraine; me1 - PSHx: 22:20 Appendectomy; carpal tunnel right; hernia; Mastoid surgery; left hand tendonitis; Nerve me1 transplantion; shunt; - Immunization history:: Adult Immunizations unknown. - Social history:: Smoking status: Reported history of juuling and/or vaping. ROS: 23:05 Constitutional: Negative for fever, cp 23:05 Cardiovascular: Positive for chest pain, of the right lower chest, Negative for edema, cp palpitations, 23:05 Respiratory: Negative for cough, shortness of breath, wheezing, 23:05 Abdomen/GI: Positive for abdominal pain, nausea, vomiting, 23:05 Neuro: Positive for headache, 23:05 Eyes: Positive for photophobia, cp 23:05 ENT: Negative for drainage from ear(s), ear pain, sore throat, difficulty swallowing, cp difficulty handling secretions, 23:05 Neck: Negative for stiffness, bony tenderness, 23:05 Back: Negative for pain at rest, pain with movement, 23:05 : Negative for urinary symptoms, 23:05 All other systems are negative, cp Exam: 23:10 Constitutional: The patient appears in no acute distress, alert, awake, cp non-diaphoretic, non-toxic, well developed, well nourished, obese, uncomfortable, 23:10 Head/Face: Normocephalic, atraumatic. cp 23:10 Eyes: Periorbital structures: appear normal, Conjunctiva: normal, no exudate, no injection, Sclera: no appreciated abnormality, Lids and lashes: appear normal, bilaterally, 23:10 ENT: External ear(s): are unremarkable, Nose: is normal, Mouth: Lips: moist, Oral mucosa: pink and intact, moist, Posterior pharynx: is normal, airway is patent, no erythema, no exudate, 23:10 Neck: External neck: swelling, is not appreciated, tenderness, is not appreciated, 23:10 Chest/axilla: Inspection: normal, Palpation: is normal, no crepitus, no tenderness, 23:10 Cardiovascular: Rate: normal, Rhythm: regular, Edema: is not appreciated, JVD: is not appreciated, 23:10 Respiratory: the patient does not display signs of respiratory distress, Respirations: cp normal, no use of accessory muscles, no retractions, labored breathing, is not present, Breath sounds: are clear throughout, no decreased breath sounds, no stridor, no wheezing, 23:10 Abdomen/GI: Inspection: obese Bowel sounds: active, all quadrants, Palpation: soft, in all quadrants, moderate abdominal tenderness, in the right upper quadrant and left upper quadrant, rebound tenderness, is not appreciated, involuntary guarding, is not appreciated, 23:10 Back: pain, is absent, ROM is normal, 23:10 Neuro: Orientation: to person, place \T\ time. Mentation: is normal, Vital Signs: 00:15 BP 145 / 79; Pulse 84; Pulse Ox 98% on R/A; nw1 22:14 BP 154 / 89; Pulse 81; Resp 20; Temp 98.2(O); Pulse Ox 98% on R/A; Weight 145.15 kg; me1 Height 6 ft. 3 in. ; Pain 8/10; 22:15 BP 152 / 82; Pulse 86; Pulse Ox 98% on R/A; nw1 22:30 BP 150 / 90; Pulse 95; Resp 16; Pulse Ox 100% on R/A; nw1 23:00 BP 121 / 94; Pulse 84; Pulse Ox 100% on R/A; nw1 23:30 BP 166 / 89; Pulse 80; Pulse Ox 100% on R/A; nw09/06 00:00 BP 162 / 79; Pulse 79; Pulse Ox 98% ; nw1 00:30 BP 158 / 84; Pulse 96; Pulse Ox 99% on R/A; nw1 01:30 BP 170 / 98; Pulse 98; Pulse Ox 99% on R/A; nw1 02:00 BP 133 / 85; Pulse 98; Pulse Ox 99% on R/A; nw1 02:30 BP 163 / 89; Pulse 78; Pulse Ox 97% on R/A; nw1 03:51 BP 142 / 79; Pulse 82; Resp 17; Pulse Ox 98% ; nw1 09/05 22:14 Body Mass Index 40.00 (145.15 kg, 190.5 cm) [facility] 22:14 Pain Scale: Adult me1 [place] Coma Score: 09/05 22:30 Eye Response: spontaneous(4). Motor Response: obeys commands(6). Verbal Response: nw1 oriented(5). Total: 15. MDM: 22:14 Patient medically screened. 09/06 03:33 Data reviewed: vital signs, nurses notes, lab test result(s), radiologic studies, CT cp scan, plain films. 03:33 Differential diagnosis: gastritis, cholecystitis, pancreatitis, viral gastroenteritis, cp gastroenteritis. Consideration of Admission/Observation Escalation of care including admission/observation considered. I considered the following discharge prescriptions or medication management in the emergency department Medications were administered in the Emergency Department. See MAR. Care significantly affected by the following chronic conditions: Hypertension. Counseling: I had a detailed discussion with the patient and/or guardian regarding the historical points, exam findings, and any diagnostic results supporting the discharge/admit diagnosis, lab results, radiology results, the need for outpatient follow up, for definitive care, a neurosurgeon. Response to treatment: the patient's symptoms have markedly improved after treatment, and as a result, I will discharge patient. 09/05 22:57 Order name: CBC with Diff; Complete Time: 23:42 cp 09/05 23:42 Interpretation: Normal except: WBC 11.00; RDW 15.9; SKIP% 83.0; LYM% 8.9; NEUT A 9.2. cp 09/05 22:57 Order name: CMP; Complete Time: 00:58 09/06 02:20 Interpretation: Normal except: GFR 71; ALK 140; GLOB 4.1; A/G 0.9. 09/05 22:57 Order name: Lipase; Complete Time: 00:58 cp 09/06 02:20 Interpretation: Reviewed. 09/05 22:57 Order name: Urinalysis w/ reflexes; Complete Time: 02:20 09/06 02:20 Interpretation: Reviewed. 09/05 22:57 Order name: COVID-19 SARS RT PCR; Complete Time: 00:58 cp 09/06 02:20 Interpretation: Reviewed. 09/05 22:57 Order name: Influenza Screen (a \T\ B); Complete Time: 00:58 09/05 23:13 Order name: XRAY Chest (1 view) 09/05 23:43 Order name: CT Chest, Abdomen, Pelvis - W/Contrast 09/05 22:57 Order name: IV Saline Lock; Complete Time: 23:14 09/05 22:57 Order name: Labs collected and sent; Complete Time: 23:14 09/06 03:06 Order name: PO challenge; Complete Time: 03:11 cp Administered Medications: 09/05 23:12 Drug: Ondansetron IVP 4 mg IVP once; over 2 minutes Route: IVP; Site: right antecubital;nw1 23:12 Drug: Famotidine IVP 20 mg IVP once; dilute with 10 mL 0.9% NaCl; give over 2 minutes nw1 Route: IVP; Site: right antecubital; 23:57 Drug: morphine IVP or IV 4 mg IVP once over 4 mins Route: IVP; Infused Over: 4 mins; nw1 Site: right antecubital; 09/06 01:09 Drug: Ketorolac IVP 30 mg IVP once Route: IVP; Site: right antecubital; nw1 01:40 Drug: NS 0.9% IV 1000 ml IV at 1 bolus Per protocol; 1000 mL bolus Route: IV; Rate: 1 nw1 bolus; Site: right antecubital; 01:40 Drug: metoCLOPramide IVP 10 mg IVP once; over 1 to 2 minutes Route: IVP; Site: right nw1 antecubital; 01:40 Drug: diphenhydrAMINE IVP 25 mg IVP once Route: IVP; Site: right antecubital; nw1 01:40 Drug: Ondansetron IVP 4 mg IVP once; over 2 minutes Route: IVP; Site: right antecubital;nw1 Disposition: 04:54 Co-signature as Attending Physician, Stephane Rizvi MD I agree with the assessment and kdr plan of care. Disposition Summary: 09/06/23 03:34 Discharge Ordered Notes: Location: Home cp Problem: an acute exacerbation cp Symptoms: have improved cp Condition: Stable cp Diagnosis - Chest pain, unspecified cp - Abdominal pain, unspecified cp - Nausea with vomiting, unspecified cp Followup: cp - With: Private Physician - When: 2 - 3 days - Reason: Recheck today's complaints Discharge Instructions: - Discharge Summary Sheet cp - Abdominal Pain, Adult cp - Nonspecific Chest Pain, Adult cp - Nausea and Vomiting, Adult cp Forms: - Medication Reconciliation Form cp - Thank You Letter cp - Antibiotic Education cp - Prescription Opioid Use cp - Patient Portal Instructions cp - Leadership Thank You Letter cp Prescriptions: - Protonix 40 mg Oral Tablet - take 1 tablet ORAL route once daily; 30 tablet; Refills: 0, Product Selection cp Permitted - Zofran 4 mg Oral Tablet - take 1 tablet ORAL route every 12 hours As needed; 20 tablet; Refills: 0, cp Product Selection Permitted Signatures: Dispatcher [employer] Stephane Bryan MD MD kdr Talon Lakhani PA PA cp Cinthia Lou RN RN me1 Martha Hernadez RN RN nw1 Corrections: (The following items were deleted from the chart) 09/07 02:28 09/05 23:05 All other systems are negative, cp cp
[2023-09-06 05:04] VITALS: TEMP 98.2; O2SAT 98
[2023-09-06 05:30] VITALS: BP 142/79
--- NOTE | 2023-09-06 15:50 | RAD REPORT ---
EXAM DESCRIPTION: CT - Chest Abdomen Pelvis W Cont - 09/06/2023 6:36 am ADDENDUM #1 ADDENDUM: 2. UNINTERRUPTED MARKETING AND PROMOTIONS MANAGER shunt catheter terminating in the left upper abdomen. ADDENDUM: THIS REPORT CONTAINS FINDINGS THAT MAY BE CRITICAL TO PATIENT'S CARE: The findings were verbally discussed via telephone conference with CLAY Lakhani by Dr. Moreno on 2:31 AM CAPACITY MANAGER. The results were acknowledged and understood. Electronically signed by: Anam Moreno DO 09/06/2023 02:31 AM CAPACITY MANAGER End of Addendum EXAM DESCRIPTION: CT Chest, Abdomen and Pelvis With Intravenous Contrast CLINICAL HISTORY: The patient is 43 years old and is Male; chest and abdomen pain TECHNIQUE: Axial computed tomography images of the chest, abdomen and pelvis with intravenous contra st. Sagittal and coronal reformatted images were created and reviewed. This CT exam was performed using one or more of the following dose reduction techniques: automated exposure control, adjustme nt of the mA and/or kV according to patient size, and/or use of iterative reconstruction technique. DLP: 3766 mGy*cm COMPARISON: Chest radiograph of the same day. FINDINGS: CHEST: LUNGS: Unremarkable. No mass. No consolidation. PLEURAL SPACE: Unremarkable. No significant effusion. No pneumothorax. HEART: Unremarkable. No cardiomegaly. No significant pericardial effusion. No significant cor onary artery calcifications. ABDOMEN: LIVER: Steatosis. No mass. GALLBLADDER AND BILE DUCTS: Unremarkable. No calcified stones. No ductal dilation. PANCREAS: Unremarkable. No ductal dilation. No mass. SPLEEN: Unremarkable. No splenomegaly. ADRENALS: Unremarkable. No mass. KIDNEYS AND URETERS: Unremarkable. No hydronephrosis. No solid mass. STOMACH AND BOWEL: Mild scattered colonic diverticulosis. No acute diverticulitis. No obstruction. PELVIS: APPENDIX: No findings to suggest acute appendicitis. BLADDER: Unremarkable. No mass. REPRODUCTIVE: Unremarkable as visualized. CHEST, ABDOMEN and PELVIS: INTRAPERITONEAL SPACE: Unremarkable. No significant fluid collection. No free air. BONES/JOINTS: Unremarkable. No acute fracture. No dislocation. SOFT TISSUES: Asymmetric right gynecomastia. VASCULATURE: Unremarkable. No aortic aneurysm. LYMPH NODES: Unremarkable. No enlarged lymph nodes. TUBES, LINES AND DEVICES: Interrupted MARKETING AND PROMOTIONS MANAGER shunt catheter terminating in the left upper abdomen. IMPRESSION: 1. No acute intrathoracic, abdominal or pelvic abnormality. 2. Interrupted MARKETING AND PROMOTIONS MANAGER shunt catheter terminating in the left upper abdomen. 3. Asymmetric right gynecomastia. 4. Mild scattered colonic diverticulosis. No acute diverticulitis. 5. Hepatic steatosis. Electronically signed by: Anam Moreno DO 09/06/2023 01:28 AM CAPACITY MANAGER Due to temporary technical issues with the PACS/Fluency reporting system, reports are being signed by the in house radiologists without review as a courtesy to insure prompt reporting. The interpreting radiologist is fully responsible for the content of the report.
--- NOTE | 2023-09-06 19:43 | RAD REPORT ---
EXAM DESCRIPTION: RAD - Chest Single View - 09/05/2023 11:34 pm CLINICAL HISTORY: The patient is 43 years old and is Male; CHEST PAIN TECHNIQUE: Frontal view of the chest. COMPARISON: No relevant prior studies available. FINDINGS: LUNGS: There are low lung volumes. There is no lobar consolidation. PLEURAL SPACE: Unremarkable. No pneumothorax. HEART: Unremarkable. No cardiomegaly. MEDIASTINUM: Unremarkable. Normal mediastinal contour. BONES/JOINTS: Unremarkable. No acute fracture. TUBES, LINES AND DEVICES: Partially visualized right ventriculoperitoneal shunt is noted. UPPER ABDOMEN: Unremarkable as visualized. IMPRESSION: Low lung volumes without acute findings. Electronically signed by: Melanie Syed MD 09/05/2023 11:43 PM SECURITY INSTALLATION SALES TECHNICIAN Due to temporary technical issues with the PACS/Fluency reporting system, reports are being signed by the in house radiologists without review as a courtesy to insure prompt reporting. The interpreting radiologist is fully responsible for the content of the report.
== END ==
LOC: ER 22:03
DX: R11.2 Nausea with vomiting, unspecified (principal); R07.9 Chest pain, unspecified; R10.9 Unspecified abdominal pain; I10 Essential (primary) hypertension; Z87.891 Personal history of nicotine dependence; Z11.52 Encounter for screening for COVID-19
CPT/HCPCS: 85025; 36415; 81003; 83690; 80053; 87635; 87804 ×2; 71260; 74177; 71045; 96375; 96374; 99285; Q9967; J2405

== ENCOUNTER → 2023-09-09 | Emergency (ER) | payer OTHER ==
[~2023-09-09] MED LIST changes: +CYCLOBENZAPRINE 10 MG TAB ONE; -DIPHENHYDRAMINE 50 MG/ML VIAL ONE; -FAMOTIDINE 20 MG/2 ML VIAL IV ONE; +FENTANYL CITR 100 MCG/2 ML ONE; +HYDROCODONE/APAP 10/325 TAB ONE; -METOCLOPRAMIDE 10 MG/2mL INJ ONE; -MORPHINE 4 MG/ML SYR ONE; -NA CHLORIDE 0.9% 1,000 ML ONE; -ONDANSETRON 4 MG/2 ML VIAL ONE
--- NOTE | 2023-09-09 08:30 | RAD REPORT ---
EXAM DESCRIPTION: RAD - Hip Left 2 View - 09/09/2023 8:19 am CLINICAL HISTORY: Left hip pain status post injury FINDINGS: No fracture or dislocation is seen. If the patient continues to have symptoms to suggest an occult fracture MRI would be recommended
--- NOTE | 2023-09-09 08:46 | ER ---
Nurse's Notes [facility] Name: Terry Akins Sr Age: 43 yrs Sex: Male : 1980 Arrival Date: 09/09/2023 Time: 07:08 Bed 12 Private MD: Diagnosis: Contusion of left buttocks Presentation: 09/09 07:23 Chief complaint: Patient states: he fell approx 10minutes [employer], denies hitting his head. ap3 patient states that he has pain to his "left butt cheek, and it has a knot the size of my fist". Patient complains of pain from his left hip down into his leg. Patient states his pain is beyond 10 on the pain scale at this time. Coronavirus screen: At this time, the client does not indicate any symptoms associated with coronavirus-19. Ebola Screen: No symptoms or risks identified at this time. Initial Sepsis Screen: Does the patient meet any 2 criteria? No. Patient's initial sepsis screen is negative. Does the patient have a suspected source of infection? No. Patient's initial sepsis screen is negative. Risk Assessment: Do you want to hurt yourself or someone else? Patient reports no desire to harm self or others. Onset of symptoms was September 09, 2023 at 06:45. 07:23 Method Of Arrival: Wheelchair ap3 07:23 Acuity: SARITHA 4 ap3 Triage Assessment: 07:26 General: Appears uncomfortable, Behavior is cooperative, appropriate for age. Pain: ap3 Complains of pain in left gluteus dulce Pain radiates to left leg Pain currently is 10 out of 10 on a pain scale. Pain began suddenly. Neuro: Level of Consciousness is awake, alert, obeys commands, Oriented to person, place, time, situation, Appropriate for age. Cardiovascular: Patient's skin is warm and dry. Respiratory: Airway is patent Respiratory effort is even, unlabored, Respiratory pattern is regular, symmetrical. Historical: - Allergies: 07:26 Morphine; ap3 - PMHx: 07:26 Hypertensive disorder; Migraine; ap3 - PSHx: 07:26 Appendectomy; carpal tunnel right; hernia; left hand tendonitis; Mastoid surgery; Nerve ap3 transplantion; shunt; - Immunization history:: Adult Immunizations unknown. - Social history:: Smoking status: Reported history of juuling and/or vaping. - Family history:: not pertinent. Screenin:26 [facility] ED Fall Risk Assessment (Adult) History of falling in the last 3 months, ap3 including since admission Yes- single mechanical fall (1 pt) Confusion or Disorientation No (0 pts) Intoxicated or Sedated No (0 pts). Abuse screen: Denies threats or abuse. Nutritional screening: No deficits noted. Tuberculosis screening: No symptoms or risk factors identified. Assessment: 08:54 Reassessment: Patient appears in no apparent distress at this time. Patient and/or nj1 family updated on plan of care and expected duration. Pain level reassessed. Patient is alert, oriented x 3, equal unlabored respirations, skin warm/dry/pink. Vital Signs: 07:23 Pulse 80; Resp 18; Pulse Ox 100% ; Weight 145.15 kg; Height 6 ft. 3 in. ; Pain 10/10; ap3 08:54 BP 161 / 91; Pulse 80; Resp 18; Pulse Ox 100% ; Pain 10/10; nj1 07:23 Body Mass Index 40.00 (145.15 kg, 190.5 cm) ap3 07:23 Pain Scale: Adult ap3 08:54 Pain Scale: Adult nj1 ED Course: 07:11 Patient arrived in ED. im 07:26 Triage completed. ap3 07:27 Arm band placed on left wrist. ap3 07:35 Kobi Martines MD is Attending Physician. rt 08:20 Hip Left 2 View XRAY In Process Unspecified. EDMS 08:42 Osiris Cisneros, RN is Primary Nurse. nj1 08:53 Notified ED physician of other pt requesting muscle relaxer pill prior to departure. nj1 08:54 No provider procedures requiring assistance completed. Patient did not have IV access nj during this emergency room visit. 08:55 Patient has correct armband on for positive identification. Bed in low position. Call nj1 light in reach. Provided Education on: discharge instructions. Administered Medications: 08:01 Drug: Ketorolac IM 15 mg IM once Route: IM; Site: right deltoid; ap3 08:59 Follow up: Response: No adverse reaction; Pain is decreased nj1 08:02 Drug: Logan PO 10 mg-325 mg 1 tabs PO once Route: PO; ap3 09:00 Follow up: Response: No adverse reaction; Pain is decreased nj1 08:58 Drug: Cyclobenzaprine PO 10 mg PO once Route: PO; nj1 Medication: 08:55 VIS not applicable for this client. nj1 Outcome: 08:46 Discharge ordered by . rt 08:54 Discharged to home ambulatory, nj1 08:54 Condition: stable 08:54 Discharge instructions given to patient, Instructed on discharge instructions, follow up and referral plans. medication usage, safety practices, Demonstrated understanding of instructions, follow-up care, medications, Prescriptions given X 1, 09:00 Patient left the ED. nj1 Signatures: Dispatcher [employer] EDMS Lisa Fuller RN RN ap3 Kobi Martines MD MD rt Osiris Cisneros RN RN nj1 Keyana Villalba
--- NOTE | 2023-09-09 08:47 | EDPHYS ---
Physician Documentation [facility] Name: Terry Akins Sr Age: 43 yrs Sex: Male : 1980 Arrival Date: 09/09/2023 Time: 07:08 Bed 12 Private MD: ED Physician Kobi Martines HPI: 09/09 08:07 This 43 yrs old Black Male presents to ER via Wheelchair with complaints of Fall Injury.rt 08:07 Patient presents to the ED with fall, left hip pain. The patient states that he rt slipped, falling onto his left buttocks onto concrete. Reports a bruise to that area. Denies hitting his head, losing consciousness, other injuries. Pain is aching nature, radiates posteriorly, is moderate in severity, no other aggravating or elevating factors. Patient was able to ambulate following the fall.. Historical: - Allergies: 07:26 Morphine; ap3 - PMHx: 07:26 Hypertensive disorder; Migraine; ap3 - PSHx: 07:26 Appendectomy; carpal tunnel right; hernia; left hand tendonitis; Mastoid surgery; Nerve ap3 transplantion; shunt; - Immunization history:: Adult Immunizations unknown. - Social history:: Smoking status: Reported history of juuling and/or vaping. - Family history:: not pertinent. ROS: 08:07 Constitutional: Negative for fever, chills, and weight loss, Cardiovascular: Negative rt for chest pain, palpitations, and edema, Respiratory: Negative for shortness of breath, cough, wheezing, and pleuritic chest pain, Abdomen/GI: Negative for abdominal pain, nausea, vomiting, diarrhea, and constipation, MS/Extremity: Negative for injury and deformity, Skin: Negative for injury, rash, and discoloration, Neuro: Negative for headache, weakness, numbness, tingling, and seizure, 08:07 MS/extremity: Positive for contusion, pain, Exam: 08:07 Constitutional: This is a well developed, well nourished patient who is awake, alert, rt and in no acute distress. Head/Face: Normocephalic, atraumatic. Chest/axilla: Normal chest wall appearance and motion. Nontender with no deformity. No lesions are appreciated. Cardiovascular: Regular rate and rhythm with a normal S1 and S2. No gallops, murmurs, or rubs. Normal PMI, no JVD. No pulse deficits. Respiratory: Lungs have equal breath sounds bilaterally, clear to auscultation and percussion. No rales, rhonchi or wheezes noted. No increased work of breathing, no retractions or nasal flaring. Abdomen/GI: Soft, non-tender, with normal bowel sounds. No distension or tympany. No guarding or rebound. No evidence of tenderness throughout. Skin: Warm, dry with normal turgor. Normal color with no rashes, no lesions, and no evidence of cellulitis. Neuro: Awake and alert, GCS 15, oriented to person, place, time, and situation. Cranial nerves II-XII grossly intact. Motor strength 5/5 in all extremities. Sensory grossly intact. Cerebellar exam normal. Normal gait. Psych: Awake, alert, with orientation to person, place and time. Behavior, mood, and affect are within normal limits. 08:07 Musculoskeletal/extremity: Contusion with tenderness to left buttock, no deformities noted, no other focal areas of tenderness.. Vital Signs: 07:23 Pulse 80; Resp 18; Pulse Ox 100% ; Weight 145.15 kg; Height 6 ft. 3 in. ; Pain 10/10; ap3 08:54 BP 161 / 91; Pulse 80; Resp 18; Pulse Ox 100% ; Pain 10/10; nj1 07:23 Body Mass Index 40.00 (145.15 kg, 190.5 cm) ap3 07:23 Pain Scale: Adult ap3 08:54 Pain Scale: Adult nj1 MDM: 07:37 Patient medically screened. rt 09:55 Differential diagnosis: Fracture, contusion. Data reviewed: vital signs, nurses notes, rt radiologic studies. Independent interpretation of the following test(s) in the Emergency Department X-Ray: My interpretation is No fracture seen on interpretation of x-ray images. Test considered but Not performed: CT: Denies head trauma, CT scan not indicated. Counseling: I had a detailed discussion with the patient and/or guardian regarding the historical points, exam findings, and any diagnostic results supporting the discharge/admit diagnosis, radiology results, the need for outpatient follow up. Response to treatment: the patient's symptoms have markedly improved after treatment. 09/09 07:41 Order name: Hip Left 2 View XRAY; Complete Time: 08:32 rt Administered Medications: 08:01 Drug: Ketorolac IM 15 mg IM once Route: IM; Site: right deltoid; ap3 08:59 Follow up: Response: No adverse reaction; Pain is decreased nj1 08:02 Drug: Olton PO 10 mg-325 mg 1 tabs PO once Route: PO; ap3 09:00 Follow up: Response: No adverse reaction; Pain is decreased nj1 08:58 Drug: Cyclobenzaprine PO 10 mg PO once Route: PO; nj1 Disposition Summary: 09/09/23 08:46 Discharge Ordered Notes: Location: Home rt Problem: new rt Symptoms: have improved rt Condition: Stable rt Diagnosis - Contusion of left buttocks rt Followup: rt - With: Private Physician - When: 5 - 6 days - Reason: Discharge Instructions: - Discharge Summary Sheet rt - Contusion rt Forms: - Medication Reconciliation Form rt - Thank You Letter rt - Antibiotic Education rt - Prescription Opioid Use rt - Patient Portal Instructions rt - Leadership Thank You Letter rt Prescriptions: - Cyclobenzaprine 10 mg Oral tablet - take 1 tablet ORAL route every 8 hours As needed; 15 tablet; Refills: 0, rt Product Selection Permitted Signatures: Dispatcher [employer] Lisa Ramey RN RN ap3 Kobi Martines MD MD rt Osiris Cisneros RN RN nj1
[2023-09-09 09:19] VITALS: BP 161/91; O2SAT 100
== END ==
LOC: ER 07:08
DX: S30.0XXA Contusion of lower back and pelvis, initial encounter (principal); Z88.5 Allergy status to narcotic agent
CPT/HCPCS: 73502; J3010

== ENCOUNTER → 2023-09-09 | Emergency (ER) | payer OTHER ==
--- NOTE | 2023-09-09 18:52 | RAD REPORT ---
EXAM DESCRIPTION: CT - Pelvis Wo Cont - 09/09/2023 6:18 pm CLINICAL HISTORY: hematoma COMPARISON: Chest Abdomen Pelvis W Cont dated 09/06/2023 TECHNIQUE: Thin cut axial CT imaging of the pelvis was performed without IV contrast. Multiplanar re formats were generated and reviewed. All CT scans are performed using dose optimization technique as appropriate and may include automated exposure control or mA/KV adjustment according to patient size. FINDINGS: Large left gluteal region lobulated and relatively hyperdense collection, with adjacent ceballos bcutaneous soft tissue edema and overlying skin thickening, measuring 11.5 x 4.5 cm in greatest axial dimensions. No deeper components within the gluteus medius and dulce muscles. No acute fracture or other suspicious osseous abnormality. No dilated bowel loops or bowel wall thickening. No free air, free fluid or inflammatory stranding. N o hernia, mass or bulky lymphadenopathy. The urinary bladder is decompressed limiting evaluation. No suspicious bony findings. IMPRESSION: Large left gluteal region hyperdense collection within the subcutaneous soft tissues up to 11.5 cm in greatest dimension, with adjacent swelling, most compatible with a hematoma. No acute osseous abnormality or other acute findings.
[2023-09-09 19:31] LABS: Hematocrit 39.7 % (39.6-49.0); MCV 84.2 fL (80-100); MPV 8.5 fL (7.6-11.3); Platelets 198 thou/uL (152-406); RBC Red Blood Cell Count 4.71 M/uL (4.33-5.43)
--- NOTE | 2023-09-09 20:16 | ER ---
Nurse's Notes [facility] Name: Terry Akins Sr Age: 43 yrs Sex: Male : 1980 Arrival Date: 09/09/2023 Time: 16:13 Bed 11 Private MD: Diagnosis: Buttock hematoma;Fall on same level, unspecified Presentation: 09/09 16:30 Chief complaint: EMS states: EMS reports pt called for pain. Pt reportedly was at this tl4 ED this morning for pain after a fall. Pt states he is in too much pain to talk and to check his chart from earlier. Coronavirus screen: Vaccine status: Patient reports receiving the 2nd dose of the covid vaccine. Ebola Screen: Patient negative for fever greater than or equal to 101.5 degrees Fahrenheit, and additional compatible Ebola Virus Disease symptoms Patient denies exposure to infectious person. Patient denies travel to an Ebola-affected area in the 21 days before illness onset. No symptoms or risks identified at this time. Initial Sepsis Screen: Does the patient meet any 2 criteria? No. Patient's initial sepsis screen is negative. Does the patient have a suspected source of infection? No. Patient's initial sepsis screen is negative. Risk Assessment: Do you want to hurt yourself or someone else? Patient reports no desire to harm self or others. Onset of symptoms was September 08, 2023. 16:30 Method Of Arrival: Wheelchair tl4 16:30 Acuity: SARITHA 3 tl4 Triage Assessment: 16:34 General: Appears uncomfortable, Behavior is cooperative, fussy. Pain: Complains of pain tl4 in back. EENT: No deficits noted. No signs and/or symptoms were reported regarding the EENT system. Neuro: No deficits noted. Cardiovascular: No deficits noted. Respiratory: No deficits noted. GI: No deficits noted. No signs and/or symptoms were reported involving the gastrointestinal system. : No deficits noted. No signs and/or symptoms were reported regarding the genitourinary system. Historical: - Allergies: 16:33 Morphine; tl4 - Home Meds: 16:33 gabapentin oral [Active]; losartan oral [Active]; Norvasc Oral [Active]; tl4 - PMHx: 16:33 Hypertensive disorder; Migraine; tl4 - PSHx: 16:33 Appendectomy; carpal tunnel right; hernia; left hand tendonitis; Mastoid surgery; Nerve tl4 transplantion; shunt; - Immunization history:: Adult Immunizations unknown. - Social history:: Smoking status: Patient denies any tobacco usage or history of. Screenin:45 [facility] ED Fall Risk Assessment (Adult) Score/Fall Risk Level 0 - 2 = Low Risk [facility] Oriented to surroundings, Maintained a safe environment, Hourly rounding (assess needs \T\ fall precautionary measures) done. Abuse screen: Denies threats or abuse. Denies injuries from another. Nutritional screening: No deficits noted. Tuberculosis screening: No symptoms or risk factors identified. Assessment: 17:45 Reassessment: See triage assessment. nj1 18:34 Reassessment: Patient appears in no apparent distress at this time. Patient and/or tn1 family updated on plan of care and expected duration. Pain level reassessed. Patient is alert, oriented x 3, equal unlabored respirations, skin warm/dry/pink. Pain: Complains of pain in left gluteus dulce Pain currently is 10 out of 10 on a pain scale. 19:15 Reassessment: Patient appears in no apparent distress at this time. No changes from [facility] previously documented assessment. Patient and/or family updated on plan of care and expected duration. Pain level reassessed. Patient is alert, oriented x 3, equal unlabored respirations, skin warm/dry/pink. 19:15 Reassessment: ED physician aware of pain level and patient request for pain medication. nj1 Pain: Complains of pain in left gluteus dulce Pain currently is 10 out of 10 on a pain scale. 20:31 Reassessment: Patient appears in no apparent distress at this time. No changes from [facility] previously documented assessment. Patient is alert, oriented x 3, equal unlabored respirations, skin warm/dry/pink. Pain: Complains of pain in left gluteus dulce Pain currently is 10 out of 10 on a pain scale. Vital Signs: 16:30 BP 166 / 96; Pulse 94; Resp 18; Temp 98.3(O); Pulse Ox 100% on R/A; Weight 145.15 kg; tl4 Height 6 ft. 3 in. ; Pain 10/10; 20:31 BP 172 / 110; Pulse 85; Resp 18; Temp 98.2(TE); Pulse Ox 98% on R/A; Pain 10/10; nj1 16:30 Body Mass Index 40.00 (145.15 kg, 190.5 cm) tl4 16:30 Pain Scale: Adult tl4 20:31 Pain Scale: Adult nj1 ED Course: 16:16 Patient arrived in ED. im 16:21 Kobi Martines MD is Attending Physician. rt 16:33 Triage completed. tl4 16:35 Arm band placed on left wrist. tl4 17:45 Patient has correct armband on for positive identification. Bed in low position. Call nj1 light in reach. Provided Education on: call light, fall precautions. 18:02 Osiris Cisneros, BRYN is Primary Nurse. nj1 18:20 CT Pelvis wo Cont In Process Unspecified. EDMS 18:53 Attending Physician role handed off by Kobi Martines MD ms3 18:53 Mathieu Orellana DO is Attending Physician. ms3 19:00 Wound care: to Hematoma to left buttock was Chadwick wrap x3 applied around buttocks as nj1 instructed by Dr Orellana. 20:15 Ilan Mckay MD is Referral Physician. ms3 20:31 No provider procedures requiring assistance completed. Patient did not have IV access nj1 during this emergency room visit. Administered Medications: 16:54 Drug: fentaNYL (PF) IM 100 mcg IM once Route: IM; Site: right ventrogluteal; tl4 18:00 Follow up: Response: No adverse reaction; Pain is unchanged, physician notified nj1 Medication: 20:32 VIS not applicable for this client. nj1 Outcome: 20:15 Discharge ordered by . ms3 20:32 Discharged to home ambulatory, nj1 20:32 Condition: stable 20:32 Discharge instructions given to patient, Instructed on discharge instructions, follow up and referral plans. medication usage, wound care, Demonstrated understanding of instructions, follow-up care, medications, wound care, Prescriptions given X 1, 20:33 Patient left the ED. nj1 Signatures: Dispatcher [employer] EDMS Mathieu Orellana DO DO ms3 Kobi Martines MD MD rt Osiris Cisneros, BRYN RN nj1 Keyana Villalba im [place], Steve tl4
--- NOTE | 2023-09-09 20:16 | EDPHYS ---
Physician Documentation [facility] Name: Terry Akins Sr Age: 43 yrs Sex: Male : 1980 Arrival Date: 09/09/2023 Time: 16:13 Bed 11 Private MD: ED Physician Mathieu Orellana HPI: 09/09 17:54 This 43 yrs old Black Male presents to ER via Wheelchair with complaints of Pain All rt Over. 17:54 Patient presents to the ED with continued pain to the left buttocks. Patient was seen rt in the ED earlier today, had a fall. States that when he went home, the pain has worsened. Denies other injury, other acute complaints, symptoms are moderate severity, aching nature, nonradiating, no other aggravating or elevating factors.. Historical: - Allergies: 16:33 Morphine; tl4 - Home Meds: 16:33 gabapentin oral [Active]; losartan oral [Active]; Norvasc Oral [Active]; tl4 - PMHx: 16:33 Hypertensive disorder; Migraine; tl4 - PSHx: 16:33 Appendectomy; carpal tunnel right; hernia; left hand tendonitis; Mastoid surgery; Nerve tl4 transplantion; shunt; - Immunization history:: Adult Immunizations unknown. - Social history:: Smoking status: Patient denies any tobacco usage or history of. ROS: 17:54 Constitutional: Negative for fever, chills, and weight loss, Cardiovascular: Negative rt for chest pain, palpitations, and edema, Respiratory: Negative for shortness of breath, cough, wheezing, and pleuritic chest pain, Abdomen/GI: Negative for abdominal pain, nausea, vomiting, diarrhea, and constipation, Skin: Negative for injury, rash, and discoloration, Neuro: Negative for headache, weakness, numbness, tingling, and seizure, 17:54 MS/extremity: Positive for Pain to left buttocks, Exam: 17:54 Constitutional: This is a well developed, well nourished patient who is awake, alert, rt and in no acute distress. Head/Face: Normocephalic, atraumatic. Chest/axilla: Normal chest wall appearance and motion. Nontender with no deformity. No lesions are appreciated. Cardiovascular: Regular rate and rhythm with a normal S1 and S2. No gallops, murmurs, or rubs. Normal PMI, no JVD. No pulse deficits. Respiratory: Lungs have equal breath sounds bilaterally, clear to auscultation and percussion. No rales, rhonchi or wheezes noted. No increased work of breathing, no retractions or nasal flaring. Abdomen/GI: Soft, non-tender, with normal bowel sounds. No distension or tympany. No guarding or rebound. No evidence of tenderness throughout. Skin: Warm, dry with normal turgor. Normal color with no rashes, no lesions, and no evidence of cellulitis. Neuro: Awake and alert, GCS 15, oriented to person, place, time, and situation. Cranial nerves II-XII grossly intact. Motor strength 5/5 in all extremities. Sensory grossly intact. Cerebellar exam normal. Normal gait. Psych: Awake, alert, with orientation to person, place and time. Behavior, mood, and affect are within normal limits. 17:54 Musculoskeletal/extremity: Contusion to left buttock increasing in size compared to prior exam. Vital Signs: 16:30 BP 166 / 96; Pulse 94; Resp 18; Temp 98.3(O); Pulse Ox 100% on R/A; Weight 145.15 kg; tl4 Height 6 ft. 3 in. ; Pain 10/10; 20:31 BP 172 / 110; Pulse 85; Resp 18; Temp 98.2(TE); Pulse Ox 98% on R/A; Pain 10/10; nj1 16:30 Body Mass Index 40.00 (145.15 kg, 190.5 cm) tl4 16:30 Pain Scale: Adult tl4 20:31 Pain Scale: Adult nj1 MDM: 16:33 Patient medically screened. rt 18:56 Management of patient was discussed with the following: Chicken Catcher: Dr Mckay- obtain ms3 hemaglobin. If baseline patient can follow up. 20:12 Differential Diagnosis Hematoma vs Fx vs strain. Data reviewed: vital signs, nurses ms3 notes, lab test result(s), radiologic studies, and as a result, I will discharge patient. I considered the following discharge prescriptions or medication management in the emergency department Medications were administered in the Emergency Department. See MAR. Independent interpretation of the following test(s) in the Emergency Department CT Scan: My interpretation is CT pelvis without contrast reviewed shows left gluteal hematoma. Historians other than the Patient: EMS: [facility]. Care significantly affected by the following chronic conditions: Hypertension. Counseling: I had a detailed discussion with the patient and/or guardian regarding the historical points, exam findings, and any diagnostic results supporting the discharge/admit diagnosis, lab results, radiology results, the need for outpatient follow up, to return to the emergency department if symptoms worsen or persist or if there are any questions or concerns that arise at home. Special discussion: I discussed with the patient/guardian in detail that at this point there is no indication for admission to the hospital. It is understood, however, that if the symptoms persist or worsen the patient needs to return immediately for re-evaluation. ED course: Discussed labs and imaging with patient. Discussed with patient necessity to follow up with Dr. Mckay in 2 to 3 days. Patient understands agrees with plan. All questions were answered. Return precautions discussed include worsening symptoms, or any other concerns. On reevaluation patient alert and orient x 4, no apparent distress, nontoxic-appearing.. 20:16 ED course: Unable to review PDMP at this time. ms3 09/09 18:56 Order name: CBC w/o diff; Complete Time: 20:04 ms3 09/09 16:33 Order name: CT Pelvis wo Cont; Complete Time: 18:53 rt Administered Medications: 16:54 Drug: fentaNYL (PF) IM 100 mcg IM once Route: IM; Site: right ventrogluteal; tl4 18:00 Follow up: Response: No adverse reaction; Pain is unchanged, physician notified nj1 Disposition Summary: 09/09/23 20:15 Discharge Ordered Notes: Location: Home ms3 Condition: Stable ms3 Diagnosis - Buttock hematoma ms3 - Fall on same level, unspecified ms3 Followup: ms3 - With: Ilan Mckay MD - When: 2 - 3 days - Reason: Recheck today's complaints Discharge Instructions: - Discharge Summary Sheet ms3 - Hematoma ms3 Forms: - Medication Reconciliation Form ms3 - Thank You Letter ms3 - Antibiotic Education ms3 - Prescription Opioid Use ms3 - Patient Portal Instructions ms3 - Leadership Thank You Letter ms3 Prescriptions: - acetaminophen-codeine 300-30 mg Oral tablet - take 1 tablet ORAL route every 4 hours; 18 tablet; Refills: 0, Product ms3 Selection Permitted Signatures: Dispatcher [employer] Mathieu Orellana DO DO ms3 Kobi Martines MD MD rt Steve Sanchez tl4 Osiris Cisneros RN nj1
[2023-09-10 00:19] VITALS: BP 172/110; TEMP 98.2; O2SAT 98
== END ==
LOC: ER 16:13
DX: S30.0XXA Contusion of lower back and pelvis, initial encounter (principal)
CPT/HCPCS: 36415; 72192; 85027

== ENCOUNTER 2023-11-21 02:31 | Emergency (ER) | payer SELFPAY ==
[2023-11-21] MEDS ORDERED: FLUORESCEIN SODIUM 1 MG/WRAP ONE (03:16)
[2023-11-21] MEDS ORDERED: KETOROLAC 30 MG/ML INJ ONE (03:16)
[2023-11-21] MEDS ORDERED: TETRACAINE HCL 0.5% 4ML OPTH ONE (03:17)
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
[2023-11-21] MEDS ORDERED: TRAMADOL HCL 50 MG TAB ONE (04:18)
[2023-11-21 08:21] VITALS: BP 150/79; TEMP 98; O2SAT 100
== END 2023-11-21 04:26 | disposition home or self-care (01) ==
LOC: ER 02:31
DX: S05.11XA Contusion of eyeball and orbital tissues, right eye, initial encounter (principal); H10.31 Unspecified acute conjunctivitis, right eye; Z88.5 Allergy status to narcotic agent
CPT/HCPCS: 96372; 99284

== ENCOUNTER 2023-12-10 09:02 | Emergency (ER) | payer OTHER, SELFPAY ==
[2023-12-10] MEDS ORDERED: ONDANSETRON 4 MG/2 ML VIAL ONE (09:56)
[2023-12-10] MEDS ORDERED: NA CHLORIDE 0.9% 1,000 ML ONE (09:56)
[2023-12-10] MEDS ORDERED: MORPHINE 4 MG/ML SYR ONE (09:56)
--- NOTE | 2023-12-10 09:56 | RAD REPORT ---
EXAM DESCRIPTION: USExtrem Venous W Compress Bil12/10/2023 9:38 am CLINICAL HISTORY: Leg pain COMPARISON: none FINDINGS: The common femoral, superficial femoral, greater saphenous, popliteal and posterior tibial veins bilaterally are compressible and demonstrate augmentation. Doppler demonstrates good flow. Grayscale, color and spectral analysis performed on all vessels IMPRESSION: No evidence of deep venous thrombosis involving either lower extremity.
[2023-12-10 10:01] LABS: Absolute Basophils 0.1 K/uL (0-0.5); Absolute Eosinophils 0.6 K/uL (0-0.5); Absolute Lymphocytes (CBC) 2.4 K/uL (0.7-4.9); Absolute Monocytes 0.5 K/uL (0.1-1.3); Absolute Neutrophil 3.9 K/uL (1.8-8.0); Basophils % 0.9 % (0-1.3); Eosinophils % 8.1 % (0-4.4); Hematocrit 40.4 % (39.6-49.0); Lymphocytes % 31.7 % (15.3-44.8); MCH 27.3 pg (27.0-35.0); MCHC 32.3 g/dL (32.0-36.0); MCV 84.6 fL (80-100); Monocytes % 6.6 % (3.3-12.3); Neutrophils % 52.7 % (41.7-73.7); Platelets 199 thou/uL (152-406); RBC Red Blood Cell Count 4.78 M/uL (4.33-5.43); Red Cell Distribution Width 14.4 % (12.1-15.2)
[2023-12-10 10:04] LABS: PT Prothrombin Time 10.7 SECONDS (9.5-12.5); Protime INR 0.97
[2023-12-10] MEDS ORDERED: HYDROMORPHONE HCL 1 MG/ML INJ ONE (10:09)
[2023-12-10] MEDS ORDERED: NA CHLORIDE 0.9% 500 ML ONE (10:09)
[2023-12-10 10:22] LABS: Albumin 3.5 g/dL (3.4-5.0); Albumin/Globulin Ratio 1.1 (1.1-1.8); Anion Gap 4.6 mEq/L (5.0-15.0); Bilirubin Direct 0.1 mg/dL (0-0.2); Bilirubin Indirect, Calculated 0.4 mg/dL (0.2-0.8); Bilirubin Total 0.5 mg/dL (0.2-1.0); C-Reactive Protein 15.2 mg/L (<3.00); Globulin 3.3 g/dL (2.3-3.5); Magnesium 1.9 mg/dL (1.6-2.4); Potassium 3.6 mEq/L (3.5-5.1); Protein, Total 6.8 g/dL (6.4-8.2); Troponin High Sensitivity 14.2 pg/mL (<58.9); Uric Acid 6.2 mg/dL (3.5-7.2)
--- NOTE | 2023-12-10 10:44 | RAD REPORT ---
EXAM DESCRIPTION: Audie Single View12/10/2023 10:34 am CLINICAL HISTORY: Cough COMPARISON: August 2023 FINDINGS: The lungs appear clear of acute infiltrate. The heart is normal size. [employer] shunt in place IMPRESSION: No acute abnormalities displayed
--- NOTE | 2023-12-10 10:47 | ER ---
Nurse's Notes [facility] Name: Terry Akins Sr Age: 43 yrs Sex: Male : 1980 Arrival Date: 12/10/2023 Time: 09:02 Bed 19 Private MD: Diagnosis: Edema, unspecified;Pain in right knee Presentation: 12/09 09:15 Chief complaint: Patient states: right leg pain and swelling X 2 days , started with iw foot swelling and now my knee is hurting and swollen too, cannot put weight on it. Coronavirus screen: At this time, the client does not indicate any symptoms associated with coronavirus-19. Ebola Screen: Patient negative for fever greater than or equal to 101.5 degrees Fahrenheit, and additional compatible Ebola Virus Disease symptoms Patient denies exposure to infectious person. Patient denies travel to an Ebola-affected area in the 21 days before illness onset. No symptoms or risks identified at this time. Initial Sepsis Screen: Does the patient meet any 2 criteria? No. Patient's initial sepsis screen is negative. Does the patient have a suspected source of infection? No. Patient's initial sepsis screen is negative. Risk Assessment: Do you want to hurt yourself or someone else? Patient reports no desire to harm self or others. Onset of symptoms was December 08, 2023. 09:15 Method Of Arrival: Ambulatory iw 09:15 Acuity: SARITHA 3 iw Triage Assessment: 09:18 General: Appears in no apparent distress. Behavior is calm, cooperative. Pain: iw Complains of pain in right leg. Historical: - Allergies: 09:16 Morphine; iw - PMHx: 09:16 Hypertensive disorder; Migraine; iw - PSHx: 09:16 Appendectomy; carpal tunnel right; hernia; left hand tendonitis; Mastoid surgery; Nerve iw transplantion; shunt; - Immunization history:: Adult Immunizations Client reports receiving the 2nd dose of the Covid vaccine, Flu vaccine is up to date. - Infectious Disease History:: Denies. - Social history:: Smoking status: Patient reports the use of cigarette tobacco products, denies chronic smoking, but will smoke occasionally, Smoking status: Reported history of juuling and/or vaping. Screenin:20 [facility] ED Fall Risk Assessment (Adult) History of falling in the last 3 months, rs5 including since admission No falls in past 3 months (0 pts) Confusion or Disorientation No (0 pts) Intoxicated or Sedated No (0 pts) Impaired Gait Yes (1 pt) Mobility Assist Device Used Yes (1 pt) Altered Elimination No (0 pt) Score/Fall Risk Level 3 or more points = High Risk Oriented to surroundings, Maintained a safe environment, Hourly rounding (assess needs \\T\\ fall precautionary measures) done. 09:20 Abuse screen: Denies threats or abuse. Nutritional screening: No deficits noted. rs5 Tuberculosis screening: No symptoms or risk factors identified. Assessment: 09:39 Reassessment: Pt arrived in room . rs5 09:40 General: Appears in no apparent distress. uncomfortable, Behavior is calm, cooperative. rs5 Pain: Complains of pain in right knee Pain currently is 8 out of 10 on a pain scale. Quality of pain is described as aching, Is continuous. Neuro: Level of Consciousness is awake, alert, obeys commands, Oriented to person, place, time, situation. Cardiovascular: Patient's skin is warm and dry. Rhythm is regular. Respiratory: Airway is patent Respiratory effort is even, unlabored, Respiratory pattern is regular, symmetrical. GI: Abdomen is round non-distended, Abd is soft and non tender X 4 quads. 09:40 : No signs and/or symptoms were reported regarding the genitourinary system. EENT: No rs5 signs and/or symptoms were reported regarding the EENT system. Derm: Skin is intact, Skin is pink, warm \\T\\ dry. Musculoskeletal: Range of motion: limited in right leg. 09:50 Reassessment: Pt states "I don't need an EKG, my heart is fine, i know it. I don't want rs5 to do the EKG" provider notified. 11:01 Reassessment: Patient and/or family updated on plan of care and expected duration. Pain rs5 level reassessed. Patient is alert, oriented x 3, equal unlabored respirations, skin warm/dry/pink. Patient states feeling better. Patient states symptoms have improved. Vital Signs: 09:15 BP 177 / 110; Pulse 81; Resp 19; Temp 98.2; Pulse Ox 97% ; Weight 167.83 kg; Height 6 iw ft. 2 in. ; Pain 10/10; 10:10 BP 163 / 88; Pulse 76; Resp 18; Pulse Ox 99% on R/A; rs5 11:00 BP 160 / 91; Pulse 77; Resp 18; Pulse Ox 99% on R/A; rs5 09:15 Body Mass Index 47.50 (167.83 kg, 187.96 cm) iw 09:15 Pain Scale: Adult iw [place] Coma Score: 10:43 Eye Response: spontaneous(4). Motor Response: obeys commands(6). Verbal Response: sin oriented(5). Total: 15. ED Course: 09:04 Patient arrived in ED. rg4 09:06 Talon Whitt MD is Attending Physician. sin 09:16 Triage completed. iw 09:16 Arm band placed on. iw 09:20 Patient has correct armband on for positive identification. Placed in gown. Bed in low rs5 position. Call light in reach. Side rails up X2. 09:20 No provider procedures requiring assistance completed. rs5 09:34 US Extremity Venous W Compression Michael In Process Unspecified. EDMS 09:41 Tristan De Guzman, BRYN is Primary Nurse. rs5 10:36 XRAY Chest (1 view) In Process Unspecified. EDMS 10:36 Knee Right 3 View XRAY In Process Unspecified. EDMS 10:46 Michel Rao MD is Referral Physician. sin 11:12 IV discontinued, intact, bleeding controlled, No redness/swelling at site. Pressure rs5 dressing applied. Administered Medications: 10:01 Not Given (Duplicate Order): morphineor iv 4 mg IVP once over 2 mins sin 10:07 Drug: NS 0.9% IV 500 ml IV at bolus once Route: IV; Rate: bolus; Site: left antecubital;rs5 10:30 Follow up: Response: No adverse reaction rs5 10:07 Drug: NS 0.9% IV 1000 ml IV at 125 ml/hr continuous Route: IV; Rate: 125 ml/hr; Site: rs5 left antecubital; 10:15 Follow up: Response: No adverse reaction rs5 10:07 Drug: Ondansetron IVP 4 mg IVP once; over 2 minutes Route: IVP; Site: left antecubital; rs5 10:30 Follow up: Response: No adverse reaction rs5 10:07 Drug: HYDROmorphone IVP 1 mg IVP once Route: IVP; Site: left antecubital; rs5 10:30 Follow up: Response: No adverse reaction; Pain is decreased rs5 Medication: 10:20 VIS not applicable for this client. rs5 Outcome: 10:47 Discharge ordered by . sin 11:12 Discharged to home with crutches, rs5 11:12 Condition: stable 11:12 Discharge instructions given to patient, family, Instructed on discharge instructions, follow up and referral plans. Demonstrated understanding of instructions, follow-up care, medications, Prescriptions given X 2, 11:15 Patient left the ED. rs5 Signatures: Dispatcher [employer] [facility] Talon Whitt MD MD cha Williams, Irene, RN RN iw Garcia, Rubi 4 Tristan De Guzman RN RN rs5 Corrections: (The following items were deleted from the chart) 09:17 09:16 Social history: Smoking status: [facility] 13:24 11:21 Patient left the ED. rs5 rs5
--- NOTE | 2023-12-10 10:47 | EDPHYS ---
Physician Documentation [facility] Name: Terry Akins Sr Age: 43 yrs Sex: Male : 1980 Arrival Date: 12/10/2023 Time: 09:02 Bed 19 Private MD: NIKOLAS Physician Talon Whitt HPI: 12/09 10:41 This 43 yrs old Black Male presents to ER via Ambulatory with complaints of Leg sin Swelling. 10:41 The patient presents with decreased range of motion, pain, swelling. The complaints sin affect the right leg and left leg. Context: The problem was sustained at an unknown site, resulted from an unknown cause. Onset: The symptoms/episode began/occurred 2 day(s) ago. Modifying factors: The symptoms are alleviated by elevating leg, remaining still, the symptoms are aggravated by movement, bending knee. Associated signs and symptoms: The patient has no apparent associated signs or symptoms. Treatment prior to arrival includes: no previous treatment. Severity of symptoms: At their worst the symptoms were moderate, in the emergency department the symptoms are unchanged. The patient has not experienced similar symptoms in the past. Historical: - Allergies: 09:16 Morphine; iw - PMHx: 09:16 Hypertensive disorder; Migraine; iw - PSHx: 09:16 Appendectomy; carpal tunnel right; hernia; left hand tendonitis; Mastoid surgery; Nerve iw transplantion; shunt; - Immunization history:: Adult Immunizations Client reports receiving the 2nd dose of the Covid vaccine, Flu vaccine is up to date. - Infectious Disease History:: Denies. - Social history:: Smoking status: Patient reports the use of cigarette tobacco products, denies chronic smoking, but will smoke occasionally, Smoking status: Reported history of juuling and/or vaping. ROS: 10:43 Constitutional: Negative for fever, chills, and weight loss, Eyes: Negative for injury, sin pain, redness, and discharge, ENT: Negative for injury, pain, and discharge, Neck: Negative for injury, pain, and swelling, Cardiovascular: Negative for chest pain, palpitations, and edema, Respiratory: Negative for shortness of breath, cough, wheezing, and pleuritic chest pain, Abdomen/GI: Negative for abdominal pain, nausea, vomiting, diarrhea, and constipation, Back: Negative for injury and pain, : Negative for injury, bleeding, discharge, and swelling, Skin: Negative for injury, rash, and discoloration, Neuro: Negative for headache, weakness, numbness, tingling, and seizure, Psych: Negative for depression, anxiety, suicide ideation, homicidal ideation, and hallucinations, Allergy/Immunology: Negative for hives, rash, and allergies, Endocrine: Negative for neck swelling, polydipsia, polyuria, polyphagia, and marked weight changes, Hematologic/Lymphatic: Negative for swollen nodes, abnormal bleeding, and unusual bruising, 10:43 MS/extremity: Positive for decreased range of motion, pain, swelling, of the right leg and left leg, Exam: 10:43 Constitutional: This is a well developed, well nourished patient who is awake, alert, sin and in no acute distress. Head/Face: Normocephalic, atraumatic. Eyes: Pupils equal round and reactive to light, extra-ocular motions intact. Lids and lashes normal. Conjunctiva and sclera are non-icteric and not injected. Cornea within normal limits. Periorbital areas with no swelling, redness, or edema. ENT: Nares patent. No nasal discharge, no septal abnormalities noted. Tympanic membranes are normal and external auditory canals are clear. Oropharynx with no redness, swelling, or masses, exudates, or evidence of obstruction, uvula midline. Mucous membranes moist. Neck: Trachea midline, no thyromegaly or masses palpated, and no cervical lymphadenopathy. Supple, full range of motion without nuchal rigidity, or vertebral point tenderness. No Meningismus. Chest/axilla: Normal chest wall appearance and motion. Nontender with no deformity. No lesions are appreciated. Cardiovascular: Regular rate and rhythm with a normal S1 and S2. No gallops, murmurs, or rubs. Normal PMI, no JVD. No pulse deficits. Respiratory: Lungs have equal breath sounds bilaterally, clear to auscultation and percussion. No rales, rhonchi or wheezes noted. No increased work of breathing, no retractions or nasal flaring. Abdomen/GI: Soft, non-tender, with normal bowel sounds. No distension or tympany. No guarding or rebound. No evidence of tenderness throughout. Back: No spinal tenderness. No costovertebral tenderness. Full range of motion. Male : Normal genitalia with no discharge or lesions. Skin: Warm, dry with normal turgor. Normal color with no rashes, no lesions, and no evidence of cellulitis. Neuro: Awake and alert, GCS 15, oriented to person, place, time, and situation. Cranial nerves II-XII grossly intact. Motor strength 5/5 in all extremities. Sensory grossly intact. Cerebellar exam normal. Normal gait. Psych: Awake, alert, with orientation to person, place and time. Behavior, mood, and affect are within normal limits. 10:43 Musculoskeletal/extremity: ROM: full active range of motion, full passive range of motion, limited active range of motion due to pain, limited passive range of motion due to pain, Circulation is intact in all extremities. Sensation intact. Compartment Syndrome exam of affected extremity: is normal. Weight bearing: able to fully bear weight, DVT Exam: negative Homans' sign noted on exam, no appreciated bluish discoloration, no erythema, no increased warmth, pain, swelling, tenderness, Vital Signs: 09:15 BP 177 / 110; Pulse 81; Resp 19; Temp 98.2; Pulse Ox 97% ; Weight 167.83 kg; Height 6 iw ft. 2 in. ; Pain 10/10; 10:10 BP 163 / 88; Pulse 76; Resp 18; Pulse Ox 99% on R/A; rs5 11:00 BP 160 / 91; Pulse 77; Resp 18; Pulse Ox 99% on R/A; rs5 09:15 Body Mass Index 47.50 (167.83 kg, 187.96 cm) iw 09:15 Pain Scale: Adult iw [place] Coma Score: 10:43 Eye Response: spontaneous(4). Motor Response: obeys commands(6). Verbal Response: sin oriented(5). Total: 15. MDM: 09:07 Patient medically screened. sin 10:44 Differential diagnosis: contusion, tendonitis. Data reviewed: vital signs, nurses [place] notes, lab test result(s), EKG, radiologic studies, doppler, plain films. Consideration of Admission/Observation Escalation of care including admission/observation considered. I considered the following discharge prescriptions or medication management in the emergency department Medications were administered in the Emergency Department. See MAR. Test considered but Not performed: CT: no ct angio. Care significantly affected by the following chronic conditions: Hypertension, Obesity, migraine. 12/09 09:15 Order name: Basic Metabolic Panel; Complete Time: 10:37 12/09 09:15 Order name: CBC with Diff; Complete Time: 10:04 12/09 09:15 Order name: LFT's; Complete Time: 10:37 12/09 09:15 Order name: Magnesium; Complete Time: 10:37 12/09 09:15 Order name: NT PRO-BNP; Complete Time: 10:37 12/09 09:15 Order name: PT-INR; Complete Time: 10:37 12/09 09:15 Order name: Troponin HS; Complete Time: 10:37 12/09 09:15 Order name: Uric Acid; Complete Time: 10:37 12/09 09:15 Order name: CRP; Complete Time: 10:37 12/09 09:15 Order name: Urinalysis w/ reflexes; Complete Time: 11:10 12/09 09:15 Order name: XRAY Chest (1 view); Complete Time: 11:10 12/09 09:15 Order name: Knee Right 3 View XRAY; Complete Time: 11:10 12/09 09:15 Order name: US Extremity Venous W Compression Michael; Complete Time: 10:04 12/09 09:15 Order name: Cardiac monitoring; Complete Time: 13:27 12/09 09:15 Order name: IV Saline Lock; Complete Time: 13:12/09 09:15 Order name: Labs collected and sent; Complete Time: 13:12/09 09:15 Order name: O2 Per Protocol; Complete Time: 13:12/09 09:15 Order name: O2 Sat Monitoring; Complete Time: 13:12/09 10:48 Order name: Crutches; Complete Time: 13:29 [place] Administered Medications: 10:01 Not Given (Duplicate Order): morphineor iv 4 mg IVP once over 2 mins sin 10:07 Drug: NS 0.9% IV 500 ml IV at bolus once Route: IV; Rate: bolus; Site: left antecubital;rs5 10:30 Follow up: Response: No adverse reaction rs5 10:07 Drug: NS 0.9% IV 1000 ml IV at 125 ml/hr continuous Route: IV; Rate: 125 ml/hr; Site: rs5 left antecubital; 10:15 Follow up: Response: No adverse reaction rs5 10:07 Drug: Ondansetron IVP 4 mg IVP once; over 2 minutes Route: IVP; Site: left antecubital; rs5 10:30 Follow up: Response: No adverse reaction rs5 10:07 Drug: HYDROmorphone IVP 1 mg IVP once Route: IVP; Site: left antecubital; rs5 10:30 Follow up: Response: No adverse reaction; Pain is decreased rs5 Disposition Summary: 12/10/23 10:47 Discharge Ordered Notes: Location: Home [place] Problem: new sin Symptoms: have improved sin Condition: Stable sin Diagnosis - Edema, unspecified sin - Pain in right knee sin Followup: sin - With: Private Physician - When: 2 - 3 days - Reason: Recheck today's complaints, Continuance of care, Re-evaluation by your physician Followup: sin - With: Michel Rao MD - When: 2 - 3 days - Reason: Recheck today's complaints, Re-evaluation by your physician Discharge Instructions: - Discharge Summary Sheet sin - Joint Pain sin - Arthritis sin - Musculoskeletal Pain sin - Edema, [id number] sin - Arthritis, [id number] sin - How to Use Cold Therapy sin - Acute Knee Pain, Adult, [id number] [place] Forms: - Medication Reconciliation Form [place] - Antibiotic Education [place] - Prescription Opioid Use [place] - Patient Portal Instructions [place] - Leadership Thank You Letter [place] Prescriptions: - Diclofenac Sodium 75 mg Oral tablet, delayed release (enteric coated) - take 1 tablet ORAL route 2 times per day; 20 tablet; Refills: 0, Product [place] Selection Permitted - Tramadol 50 mg Oral tablet - take 1 tablet ORAL route every 6-8 hours as needed; 24 tablet; Refills: 0, [place] Product Selection Permitted Signatures: Dispatcher [employer] EDTalon Coker MD MD cha Williams, Irene RN Kwame Solis MD MD rn Sotelo, Ricky, RN RN rs5 Corrections: (The following items were deleted from the chart) 09:16 09:15 BASIC METABOLIC PANEL+C.LAB.BRZ ordered. EDMS EDMS 09:16 09:15 CBC+H.LAB.BRZ ordered. EDMS EDMS 09:16 09:15 HEPATIC FUNCTION+C.LAB.BRZ ordered. EDMS EDMS 09:16 09:15 MAGNESIUM+C.LAB.BRZ ordered. EDMS EDMS 09:16 09:15 PROBNP+C.LAB.BRZ ordered. EDMS EDMS 09:16 09:15 PROTIME (+INR)+COAG.LAB.BRZ ordered. EDMS EDMS 09:16 09:15 Troponin High Sensitivity+C.LAB.BRZ ordered. EDMS EDMS 09:16 09:15 URIC ACID+C.LAB.BRZ ordered. EDMS EDMS 09:16 09:15 C-REACTIVE PROTEIN+C.LAB.BRZ ordered. EDMS EDMS 09:17 09:16 Social history: Smoking status: iw iw
[2023-12-10 10:51] LABS: Specific Gravity > 1.030 (1.005-1.030); Sqamous Epithelial <5 /HPF (None Seen); Urine Bacteria None Seen /HPF (<20); Urine Bilirubin NEGATIVE (Negative); Urine Blood Negative (Negative); Urine Clarity Clear (Clear); Urine Color Yellow (Yellow); Urine Culture Reflex Order NOT NEEDED; Urine Glucose NEGATIVE (Negative); Urine Ketones NEGATIVE (Negative); Urine Microscopic Reflex YN ORDER UMIC; Urine Mucus Slight /HPF (None Seen); Urine Nitrite NEGATIVE (Negative); Urine Protein 1+ (Negative); Urine RBC <5 /HPF (None Seen); Urine Urobilinogen 1+ (Normal); Urine WBC <5 /HPF (<5)
--- NOTE | 2023-12-10 10:52 | RAD REPORT ---
EXAM DESCRIPTION: RAD - Knee Right 3 View - 12/10/2023 10:34 am CLINICAL HISTORY: Right knee pain FINDINGS: No fracture or dislocation is seen. Edema is present within the subcutaneous tissues. Large spur extends off of the superior aspect of the patella
[2023-12-10 11:53] VITALS: BP 177/110; TEMP 98.2; O2SAT 97
== END 2023-12-10 11:21 | disposition home or self-care (01) ==
LOC: ER 09:02
DX: R60.9 Edema, unspecified (principal); M25.561 Pain in right knee; I10 Essential (primary) hypertension; F17.210 Nicotine dependence, cigarettes, uncomplicated; Z88.5 Allergy status to narcotic agent
CPT/HCPCS: 85025; 81001; 80048; 36415; 83735; 85610; 80076; 84550; 84484; 83880; 86140; 71045; 73562; 93970; 96375; 96374; 99284; J1170; J2405; J7040; J7030

== ENCOUNTER 2023-12-23 01:25 | Emergency (ER) | payer OTHER ==
[2023-12-23] MEDS ORDERED: DIPHENHYDRAMINE 50 MG/ML VIAL ONE (02:23)
[2023-12-23] MEDS ORDERED: KETOROLAC 30 MG/ML INJ ONE (02:23)
[2023-12-23 02:34] LABS: Absolute Eosinophils 0.6 K/uL (0-0.5); Absolute Monocytes 0.4 K/uL (0.1-1.3); Absolute Neutrophil 3.3 K/uL (1.8-8.0); Basophils % 0.7 % (0-1.3); Eosinophils % 8.9 % (0-4.4); Hematocrit 41.8 % (39.6-49.0); Hemoglobin 13.6 g/dL (13.6-17.9); Lymphocytes % 31.9 % (15.3-44.8); MCH 27.3 pg (27.0-35.0); MCHC 32.6 g/dL (32.0-36.0); MCV 83.8 fL (80-100); MPV 9.1 fL (7.6-11.3); Neutrophils % 52.5 % (41.7-73.7); Nucleated Red Blood Cells % 0.1 % (0-0); Platelets 184 thou/uL (152-406); RBC Red Blood Cell Count 4.99 M/uL (4.33-5.43); Red Cell Distribution Width 14.4 % (12.1-15.2)
[2023-12-23 02:38] LABS: PT Prothrombin Time 11.5 SECONDS (9.5-12.5); Protime INR 1.05
[2023-12-23 02:50] LABS: ALT/SGPT 26 U/L (16-61); AST/SGOT 14 U/L (15-37); Albumin 3.7 g/dL (3.4-5.0); Alkaline Phosphatase 118 U/L (45-117); Anion Gap 7.5 mEq/L (5.0-15.0); BUN Blood Urea Nitrogen 12 mg/dL (7-18); Bicarbonate 27 mEq/L (21-32); Bilirubin Total 0.6 mg/dL (0.2-1.0); Globulin 3.7 g/dL (2.3-3.5); Glomerular Filtration Rate 72 ml/min (=/>90); Glucose Level 125 mg/dL (74-106); NT PRO-BNP 133 pg/mL (<125); Potassium 3.5 mEq/L (3.5-5.1); Protein, Total 7.4 g/dL (6.4-8.2); Sodium Level 139 mEq/L (136-145); Troponin High Sensitivity 11.8 pg/mL (<58.9)
[2023-12-23 02:55] LABS: Bilirubin Direct < 0.2 mg/dL (0-0.2); Bilirubin Indirect, Calculated 0.4 mg/dL (0.2-0.8)
[2023-12-23] MEDS ORDERED: ONDANSETRON 4 MG/2 ML VIAL ONE (03:28)
[2023-12-23] MEDS ORDERED: FENTANYL CITR 100 MCG/2 ML ONE (03:29)
--- NOTE | 2023-12-23 04:30 | EDPHYS ---
Physician Documentation [facility] Name: Terry Akins Sr Age: 43 yrs Sex: Male : 1980 Arrival Date: 12/23/2023 Time: : Bed 2 Private MD: Hao Wilson ED Physician Demarcus Stone HPI: 12/22 02:08 This 43 yrs old Black Male presents to ER via Wheelchair with complaints of Leg Pain. sp4 04:32 33-year-old male presents with moderate right knee pain and swelling starting several sp4 weeks ago. . 04:33 Patient was here on 12/10/2023 for the same problem and had unremarkable workup. . sp4 Historical: - Allergies: 01:58 Morphine; jb4 - PMHx: 01:58 Migraine; Hypertensive disorder; jb4 - PSHx: 01:58 Appendectomy; carpal tunnel right; hernia; left hand tendonitis; Mastoid surgery; Nerve jb4 transplantion; shunt; - Immunization history:: Adult Immunizations up to date. - Infectious Disease History:: Denies. - Social history:: Smoking status: Reported history of juuling and/or vaping. - Family history:: not pertinent. ROS: 04:33 Constitutional: Negative for fever, chills, and weight loss, positive right knee pain sp4 and swelling 04:33 All other systems are negative, Exam: 04:33 Constitutional: This is a well developed, well nourished patient who is awake, alert, sp4 and in no acute distress. Head/Face: Normocephalic, atraumatic. Eyes: Pupils equal round and reactive to light, extra-ocular motions intact. Lids and lashes normal. Conjunctiva and sclera are not injected. Cornea within normal limits. Periorbital areas with no swelling, redness, or edema. ENT: Nares patent. No nasal discharge, no septal abnormalities noted. Tympanic membranes are normal and external auditory canals are clear. Oropharynx with no redness, swelling, or masses, exudates, or evidence of obstruction, uvula midline. Mucous membranes moist. Neck: Trachea midline, no thyromegaly or masses palpated, and no cervical lymphadenopathy. Supple, full range of motion without nuchal rigidity, or vertebral point tenderness. Chest/axilla: Normal chest wall appearance and motion. Nontender with no deformity. No lesions are appreciated. Cardiovascular: Regular rate and rhythm with a normal S1 and S2. No gallops, murmurs, or rubs. Normal PMI, no JVD. No pulse deficits. Respiratory: Lungs have equal breath sounds bilaterally, clear to auscultation and percussion. No rales, rhonchi or wheezes noted. No increased work of breathing, no retractions or nasal flaring. Abdomen/GI: Soft, with normal bowel sounds. No distension or tympany. No guarding or rebound. No evidence of tenderness throughout. Back: No spinal tenderness. No costovertebral tenderness. Skin: Warm, dry with normal turgor. Normal color with no rashes, no lesions, and no evidence of cellulitis. MS/ Extremity: Pulses equal, no cyanosis. Neurovascular intact. Mild right knee effusion noted on exam with decreased range of motion of the right knee. Unremarkable peripheral pulses. No sign of redness or heat indicative of septic knee. Neuro: Awake and alert, GCS 15, oriented to person, place, time, and situation. Cranial nerves II-XII grossly intact. Motor strength 5/5 in all extremities. Sensory grossly intact. Psych: Awake, alert, with orientation to person, place and time. Behavior, mood, and affect are within normal limits 05:21 ECG was reviewed by the Attending Physician. 02:16 EKG time 216 sinus rhythm at 77, sp4 LVH Vital Signs: 01:51 BP 174 / 97; Pulse 84; Resp 16; Temp 98(TE); Pulse Ox 99% on R/A; Weight 158.76 kg (R); jb4 Height 6 ft. 3 in. (R); Pain 10/10; 03:04 BP 132 / 87; Pulse 70; Resp 17; Pulse Ox 96% on R/A; rv 04:00 BP 150 / 84; Pulse 71; Resp 18; Pulse Ox 99% on R/A; cm10 01:51 Body Mass Index 43.75 (158.76 kg, 190.5 cm) jb4 01:51 Pain Scale: Adult jb4 [place] Coma Score: 04:33 Eye Response: spontaneous(4). Motor Response: obeys commands(6). Verbal Response: sp4 oriented(5). Total: 15. MDM: 02:01 Patient medically screened. sp4 04:27 ED course: EXAM DESCRIPTION: Extremity Venous Uni Ltd CLINICAL HISTORY: Right leg sp4 swelling COMPARISON: None. TECHNIQUE: Grayscale, color Doppler, and spectral Doppler imaging of the right lower extremity venous system. FINDINGS: Normal compressibility and flow identified in the right common femoral, superficial femoral, popliteal, and visualized calf veins. No echogenic thrombus identified. No soft tissue abnormalities. Respiratory phasicity in the common femoral veins. IMPRESSION: No evidence of right lower extremity DVT. Electronically signed by: Kiran Simon DO 12/23/2023 03:22 AM CDT. ED course: CLINICAL HISTORY: right knee pain COMPARISON: None. TECHNIQUE: XR KNEE 1-2 VIEWS RIGHT 12/23/2023 2:07 AM CDT FINDINGS: There is no fracture. Joint spaces are preserved. Soft tissues are unremarkable. IMPRESSION: No acute osseous findings. Electronically signed by: Mendoza Peterson MD 12/23/2023 03:03 AM CDT. 04:31 Differential diagnosis: closed fracture, contusion, abrasion, tendonitis. Data sp4 reviewed: vital signs, nurses notes, lab test result(s), EKG, radiologic studies, doppler, plain films. Consideration of Admission/Observation Escalation of care including admission/observation considered. ED course: Patient was advised to see orthopedist for follow-up for further testing on the right knee. . 12/22 02:06 Order name: Basic Metabolic Panel; Complete Time: 04:20 4 12/22 02:06 Order name: CBC with Diff; Complete Time: 04:20 12/22 02:06 Order name: LFT's; Complete Time: 04:20 4 12/22 02:06 Order name: Magnesium; Complete Time: 04:20 12/22 02:06 Order name: NT PRO-BNP; Complete Time: 04:20 12/22 02:06 Order name: PT-INR; Complete Time: 04:20 12/22 02:06 Order name: Troponin HS; Complete Time: 04:20 12/22 02:06 Order name: Extremity Venous Uni Ltd 4 12/22 02:07 Order name: Knee Right 2 View XRAY 4 12/22 02:06 Order name: EKG; Complete Time: 02:06 4 05/13 02:06 Order name: Cardiac monitoring; Complete Time: 02: sp4 12/22 02:06 Order name: EKG - Nurse/Tech; Complete Time: 02: sp4 12/22 02:06 Order name: IV Saline Lock; Complete Time: 02: sp4 12/22 02:06 Order name: Labs collected and sent; Complete Time: 02: sp4 12/22 02:06 Order name: O2 Per Protocol; Complete Time: : sp4 12/22 02:06 Order name: O2 Sat Monitoring; Complete Time: : sp4 EC: Rate is 77 beats/min. Rhythm is regular, Normal Sinus Rhythm. QRS [place] is Normal. NV sp4 interval is prolonged. QRS interval is normal. QT interval is normal. No Q waves. T waves are Normal. No ST changes noted. Clinical impression: No evidence of ischemia. Interpreted by me. Reviewed by me. Administered Medications: 02:30 Drug: diphenhydrAMINE IVP 25 mg IVP once Route: IVP; Site: right antecubital; rv 03:05 Follow up: Response: No adverse reaction; Marked relief of symptoms rv 02:30 Drug: Ketorolac IVP 30 mg IVP once Route: IVP; Site: right antecubital; rv 03:05 Follow up: Response: No adverse reaction; Marked relief of symptoms rv 03:45 Drug: Ondansetron IVP 4 mg IVP once; over 2 minutes Route: IVP; Site: right antecubital;rv 04:38 Follow up: Response: No adverse reaction cm10 03:46 Drug: fentaNYL (PF) IVP 100 mcg IVP once Route: IVP; Site: right antecubital; rv 04:38 Follow up: Response: No adverse reaction cm10 Disposition Summary: 12/23/23 04:29 Discharge Ordered Notes: Location: Home sp4 Problem: new sp4 Symptoms: have improved sp4 Condition: Stable sp4 Diagnosis - Pain in right knee sp4 - Right knee effusion sp4 Followup: sp4 - With: Michel Rao MD - When: 7 - 10 days - Reason: Recheck today's complaints Discharge Instructions: - Discharge Summary Sheet sp4 - Acute Knee Pain, Adult sp4 Forms: - Patient Portal Instructions sp4 Prescriptions: - Ibuprofen 800 mg Oral Tablet - take 1 tablet ORAL route every 8 hours As needed take with food; 30 tablet; sp4 Refills: 0, Product Selection Permitted - Tramadol 50 mg Oral tablet - take 1 tablet ORAL route every 8 hours as needed; 20 tablet; Refills: 0, sp4 Product Selection Permitted - methocarbamol 750 mg Oral tablet - take 2 tablet ORAL route every 8 hours for 2 days PRN muscle soreness; 30 sp4 tablet; Refills: 0, Product Selection Permitted Signatures: Dispatcher [employer] George Gonzalez RN RN jb4 Sacha Lieberman RN RN rv Potepalov, Sergey, MD MD sp4 Roxanne Cage RN cm10
--- NOTE | 2023-12-23 04:30 | ER ---
Nurse's Notes [facility] Name: Terry Akins Sr Age: 43 yrs Sex: Male : 1980 Arrival Date: 12/23/2023 Time: 01:25 Bed 2 Private MD: Hao Wilson Diagnosis: Pain in right knee;Right knee effusion Presentation: 12/22 01:51 Chief complaint: Patient states: I was here recently due to pain in my knee. I was jb4 given 3 pain medications, and a muscle relaxer. None of it is helping. I now have swelling on top of my right knee and a knot behind it. I have limited range of motion in my knee to the point its getting difficult to even drive. Coronavirus screen: At this time, the client does not indicate any symptoms associated with coronavirus-19. Ebola Screen: No symptoms or risks identified at this time. Initial Sepsis Screen: Does the patient meet any 2 criteria? No. Patient's initial sepsis screen is negative. Does the patient have a suspected source of infection? No. Patient's initial sepsis screen is negative. Risk Assessment: Do you want to hurt yourself or someone else? Patient reports no desire to harm self or others. Onset of symptoms was December 16, 2023. Transition of care: patient was not received from another setting of care. 01:51 Method Of Arrival: Wheelchair jb4 01:51 Acuity: SARITHA 3 jb4 Triage Assessment: 02:28 General: Appears in no apparent distress. comfortable, Behavior is calm, cooperative. cm10 Pain: Complains of pain in right leg. Neuro: No deficits noted. Level of Consciousness is awake, alert, obeys commands, Oriented to person, place, time, situation, Appropriate for age. Respiratory: No deficits noted. Airway is patent Respiratory effort is even, unlabored, Respiratory pattern is regular, symmetrical. Musculoskeletal: Swelling present in right leg Reports pain in right leg. Historical: - Allergies: :58 Morphine; jb4 - PMHx: :58 Migraine; Hypertensive disorder; jb4 - PSHx: 01:58 Appendectomy; carpal tunnel right; hernia; left hand tendonitis; Mastoid surgery; Nerve jb4 transplantion; shunt; - Immunization history:: Adult Immunizations up to date. - Infectious Disease History:: Denies. - Social history:: Smoking status: Reported history of juuling and/or vaping. - Family history:: not pertinent. Screenin:29 [facility] ED Fall Risk Assessment (Adult) History of falling in the last 3 months, cm10 including since admission No falls in past 3 months (0 pts) Confusion or Disorientation No (0 pts) Intoxicated or Sedated No (0 pts) Impaired Gait No (0 pts) Mobility Assist Device Used No (0 pt) Altered Elimination No (0 pt) Score/Fall Risk Level 0 - 2 = Low Risk Oriented to surroundings, Maintained a safe environment, Hourly rounding (assess needs \T\ fall precautionary measures) done. Abuse screen: Denies threats or abuse. Denies injuries from another. Nutritional screening: No deficits noted. Tuberculosis screening: No symptoms or risk factors identified. Assessment: 03:03 Reassessment: Patient and/or family updated on plan of care and expected duration. Pain rv level reassessed. Patient is alert, oriented x 3, equal unlabored respirations, skin warm/dry/pink. General: Appears comfortable, Behavior is calm, cooperative. Neuro: Level of Consciousness is awake, alert, obeys commands, Oriented to person, place, time, situation. Cardiovascular: Capillary refill < 3 seconds Patient's skin is warm and dry. Respiratory: Airway is patent Respiratory effort is even, unlabored. Vital Signs: 01:51 BP 174 / 97; Pulse 84; Resp 16; Temp 98(TE); Pulse Ox 99% on R/A; Weight 158.76 kg (R); jb4 Height 6 ft. 3 in. (R); Pain 10/10; 03:04 BP 132 / 87; Pulse 70; Resp 17; Pulse Ox 96% on R/A; rv 04:00 BP 150 / 84; Pulse 71; Resp 18; Pulse Ox 99% on R/A; cm10 01:51 Body Mass Index 43.75 (158.76 kg, 190.5 cm) jb4 01:51 Pain Scale: Adult jb4 Pelham Coma Score: 04:33 Eye Response: spontaneous(4). Motor Response: obeys commands(6). Verbal Response: sp4 oriented(5). Total: 15. ED Course: 01:28 Patient arrived in ED. gm2 01:28 Hao Wilson DO is Private Physician. gm2 01:36 Demarcus Stone MD is Attending Physician. sp4 01:58 Triage completed. jb4 01:58 Arm band placed on right wrist. jb4 02:11 Sacha Lieberman, BRYN is Primary Nurse. rv 02:24 Initial lab(s) drawn, by me, sent to lab. EKG done, by ED staff, reviewed by Demarcus Stone MD. Inserted saline lock: 20 gauge in right antecubital area, using aseptic technique. Blood collected. Missed attempt(s): 20 gauge in left antecubital area. Bleeding controlled, band aid applied, catheter tip intact. 02:29 Patient has correct armband on for positive identification. Bed in low position. Call cm10 light in reach. Side rails up X2. Provided Education on: ER process and procedures. 02:34 Knee Right 2 View XRAY In Process Unspecified. EDMS 02:47 Extremity Venous Uni Ltd US In Process Unspecified. EDMS 04:28 Michel Rao MD is Referral Physician. sp4 04:37 Chadwick wrap to right knee. cm10 04:37 No provider procedures requiring assistance completed. IV discontinued, intact, cm10 bleeding controlled, No redness/swelling at site. Pressure dressing applied. Administered Medications: 02:30 Drug: diphenhydrAMINE IVP 25 mg IVP once Route: IVP; Site: right antecubital; rv 03:05 Follow up: Response: No adverse reaction; Marked relief of symptoms rv 02:30 Drug: Ketorolac IVP 30 mg IVP once Route: IVP; Site: right antecubital; rv 03:05 Follow up: Response: No adverse reaction; Marked relief of symptoms rv 03:45 Drug: Ondansetron IVP 4 mg IVP once; over 2 minutes Route: IVP; Site: right antecubital;rv 04:38 Follow up: Response: No adverse reaction cm10 03:46 Drug: fentaNYL (PF) IVP 100 mcg IVP once Route: IVP; Site: right antecubital; rv 04:38 Follow up: Response: No adverse reaction cm10 Medication: 02:29 VIS not applicable for this client. cm10 Outcome: 04:29 Discharge ordered by . sp4 04:38 Discharged to home ambulatory, rv 04:38 Condition: good 04:38 Discharge instructions given to patient, Instructed on discharge instructions, follow up and referral plans. medication usage, Demonstrated understanding of instructions, follow-up care, medications, Prescriptions given X 3, 04:39 Patient left the ED. rv Signatures: Dispatcher [employer] EDMS George Kim RN RN jb4 Sacha Lieberman RN RN rv Demarcus Stone MD MD sp4 Roxanne Cage RN RN cm10 Radha Huston [facility]
[2023-12-23 04:51] VITALS: BP 150/84; TEMP 98; O2SAT 99
--- NOTE | 2023-12-23 13:17 | EKG ---
Test Date: 2023-12-23 Test Time: 02:16:01 Senior Data Developer: RV MEASUREMENT RESULTS: Intervals: Rate: 77 MS: 228 QRSD: 86 QT: 362 QTc: 409 [place]: P: 61 MS: 228 QRS: -16 T: 133 INTERPRETIVE STATEMENTS: Sinus rhythm with 1st degree AV block Left ventricular hypertrophy with repolarization abnormality Cannot rule out Septal infarct, age undetermined Abnormal ECG Compared to ECG 08/27/2023 20:08:29 Myocardial infarct finding now present Ventricular premature complex(es) no longer present Electronically Signed On 12-23-23 13:16:44 CDT by Nick Esteban
--- NOTE | 2023-12-23 14:09 | RAD REPORT ---
EXAM DESCRIPTION: US - Extremity Venous Uni Ltd - 12/23/2023 2:45 am CLINICAL HISTORY: Right leg swelling COMPARISON: None. TECHNIQUE: Grayscale, color Doppler, and spectral Doppler imaging of the right lower extremity venou s system. FINDINGS: Normal compressibility and flow identified in the right common femoral, superficial femora l, popliteal, and visualized calf veins. No echogenic thrombus identified. No soft tissue abnormaliti es. Respiratory phasicity in the common femoral veins. IMPRESSION: No evidence of right lower extremity DVT. Electronically signed by: Kiran Simon DO 12/23/2023 03:22 AM CDT M Due to temporary technical issues with the PACS/Fluency reporting system, reports are being signed by the in house radiologist without review as a courtesy to ensure prompt reporting. The interpreting r adiologist is fully responsible for the content of the report.
--- NOTE | 2023-12-23 14:10 | RAD REPORT ---
EXAM DESCRIPTION: RAD - Knee Right 2 View - 12/23/2023 2:32 am CLINICAL HISTORY: Right knee pain COMPARISON: None. TECHNIQUE: XR KNEE 1-2 VIEWS RIGHT 12/23/2023 2:07 AM CDT FINDINGS: There is no fracture. Joint spaces are preserved. Soft tissues are unremarkable. IMPRESSION: No acute osseous findings. Electronically signed by: Mendoza Peterson MD 12/23/2023 03:03 AM CDT Due to temporary technical issues with the PACS/Fluency reporting system, reports are being signed by the in house radiologist without review as a courtesy to ensure prompt reporting. The interpreting r adiologist is fully responsible for the content of the report.
== END 2023-12-23 04:39 | disposition home or self-care (01) ==
LOC: ER 01:25
DX: M25.461 Effusion, right knee (principal); Z88.5 Allergy status to narcotic agent
CPT/HCPCS: 93005; 85025; 80048; 36415; 83735; 85610; 80076; 84484; 83880; 73560; 93971; 96375; 96374; 99284; J1200; J3010; J2405

== ENCOUNTER 2024-01-04 14:26 | Emergency (ER) | payer OTHER ==
[2024-01-04] MEDS ORDERED: KETOROLAC 30 MG/ML INJ ONE (15:13)
[2024-01-04] MEDS ORDERED: DIPHENHYDRAMINE 50 MG/ML VIAL ONE (15:13)
[2024-01-04] MEDS ORDERED: METOCLOPRAMIDE 10 MG/2mL INJ ONE (15:14)
--- NOTE | 2024-01-04 16:06 | EDPHYS ---
Physician Documentation [facility] Name: Terry Akins Sr Age: 43 yrs Sex: Male : 1980 Arrival Date: 01/04/2024 Time: 14:26 Bed 8 Private MD: ED Physician Talon Whitt HPI: 01/03 16:03 This 43 yrs old Black Male presents to ER via Ambulatory with complaints of Headache, jr8 Nausea. 16:03 Onset: The symptoms/episode began/occurred acutely, today. Associated signs and jr8 symptoms: Pertinent positives: Photophobia. Severity of symptoms: At its worst the pain was moderate, in the emergency department the pain is unchanged. Headache History: The patient has had previous headaches and this one is similar to previous episodes. The patient has experienced similar episodes in the past, a few times. The patient has not recently seen a physician. Historical: - Allergies: 14:45 Morphine; aa5 - PMHx: 14:45 Hypertensive disorder; Migraine; aa5 - PSHx: 14:45 Appendectomy; carpal tunnel right; hernia; left hand tendonitis; Mastoid surgery; Nerve aa5 transplantion; shunt; - Immunization history:: Adult Immunizations up to date. - Infectious Disease History:: Denies. - Social history:: Smoking status: Patient denies any tobacco usage or history of. ROS: 16:03 Eyes: Negative for injury, pain, redness, and discharge, ENT: Negative for injury, jr8 pain, and discharge, Neck: Negative for injury, pain, and swelling, Cardiovascular: Negative for chest pain, palpitations, and edema, Respiratory: Negative for shortness of breath, cough, wheezing, and pleuritic chest pain, Abdomen/GI: Negative for abdominal pain, nausea, vomiting, diarrhea, and constipation, Back: Negative for injury and pain, MS/Extremity: Negative for injury and deformity, Skin: Negative for injury, rash, and discoloration, 16:03 Neuro: Positive for headache, Exam: 16:03 Constitutional: This is a well developed, well nourished patient who is awake, alert. jr8 Obvious pain Head/Face: Normocephalic, atraumatic. Eyes: Pupils equal round and reactive to light, extra-ocular motions intact. Lids and lashes normal. Conjunctiva and sclera are non-icteric and not injected. Cornea within normal limits. Periorbital areas with no swelling, redness, or edema. Cardiovascular: Regular rate and rhythm with a normal S1 and S2. No gallops, murmurs, or rubs. Normal PMI, no JVD. No pulse deficits. Respiratory: Lungs have equal breath sounds bilaterally, clear to auscultation and percussion. No rales, rhonchi or wheezes noted. No increased work of breathing, no retractions or nasal flaring. Abdomen/GI: Soft, non-tender, with normal bowel sounds. No distension or tympany. No guarding or rebound. No evidence of tenderness throughout. Skin: Warm, dry with normal turgor. Normal color with no rashes, no lesions, and no evidence of cellulitis. MS/ Extremity: Pulses equal, no cyanosis. Neurovascular intact. Full, normal range of motion. Neuro: Awake and alert, GCS 15, oriented to person, place, time, and situation. Cranial nerves II-XII grossly intact. Motor strength 5/5 in all extremities. Sensory grossly intact. Cerebellar exam normal. Normal gait. Vital Signs: 14:45 BP 203 / 120; Pulse 76; Resp 20 S; Temp 98.6(O); Pulse Ox 99% on R/A; Weight 158.76 kg aa5 (R); Height 6 ft. 2 in. (R); 15:19 BP 162 / 99; Pulse 66; Resp 18; Pulse Ox 99% on R/A; Pain 9/10; ld1 15:54 BP 172 / 111; Pulse 78; Resp 18; Pulse Ox 95% on R/A; ld1 14:45 Body Mass Index 44.94 (158.76 kg, 187.96 cm) aa5 15:19 Pain Scale: Adult ld1 MDM: 14:43 Patient medically screened. jr8 16:03 Data reviewed: vital signs, nurses notes, and as a result, I will discharge patient. I jr8 considered the following discharge prescriptions or medication management in the emergency department Medications were administered in the Emergency Department. See MAR. Counseling: I had a detailed discussion with the patient and/or guardian regarding the historical points, exam findings, and any diagnostic results supporting the discharge/admit diagnosis, the need for outpatient follow up, a family practitioner, to return to the emergency department if symptoms worsen or persist or if there are any questions or concerns that arise at home. Response to treatment: the patient's symptoms have resolved after treatment, the patient's pain is gone. ED course: Patient pain-free at this point feeling much better. Will discharge home to follow-up with his family practice. If he were to have a change or worsening condition to come back to the emergency room for reevaluation. Patient felt good at this time with plan and will follow-up and/or come back.. 01/03 14:49 Order name: Saline Lock; Complete Time: 15:35 jr8 Administered Medications: 15:33 Drug: diphenhydrAMINE IVP 25 mg IVP once Route: IVP; Site: left antecubital; nj1 15:34 Drug: Ketorolac IVP 10 mg 10 mg IVP once Route: IVP; Site: left antecubital; nj1 15:35 Drug: metoCLOPramide IVP 10 mg IVP once; over 1 to 2 minutes Route: IVP; Site: left nj1 antecubital; Disposition Summary: 01/04/24 16:06 Discharge Ordered Notes: Location: Home jr8 Problem: new jr8 Symptoms: are resolved jr8 Condition: Stable jr8 Diagnosis - Migraine without aura, intractable jr8 Followup: jr8 - With: Private Physician - When: 2 - 3 days - Reason: Recheck today's complaints, Continuance of care, Re-evaluation by your physician Discharge Instructions: - Discharge Summary Sheet jr8 - Migraine Headache jr8 Forms: - Medication Reconciliation Form jr8 - Antibiotic Education jr8 - Prescription Opioid Use jr8 - Patient Portal Instructions jr8 - Leadership Thank You Letter jr8 Signatures: Rain Mann, RN RN aa5 Pedro Luis Espinosa PA PA jr8 Chelsey Orellana RN RN ld1 Osiris Cisneros RN RN nj1
--- NOTE | 2024-01-04 16:06 | ER ---
Nurse's Notes [facility] Name: Terry Akins Sr Age: 43 yrs Sex: Male : 1980 Arrival Date: 01/04/2024 Time: 14:26 Bed 8 Private MD: Diagnosis: Migraine without aura, intractable Presentation: 01/03 14:45 Chief complaint: Patient states: migraine since this morning. Coronavirus screen: aa5 nausea. Ebola Screen: Patient denies travel to an Ebola-affected area in the 21 days before illness onset. Initial Sepsis Screen: Does the patient meet any 2 criteria? No. Patient's initial sepsis screen is negative. Does the patient have a suspected source of infection? No. Patient's initial sepsis screen is negative. Risk Assessment: Do you want to hurt yourself or someone else? Patient reports no desire to harm self or others. Onset of symptoms was 2023. 14:45 Method Of Arrival: Ambulatory aa5 14:45 Acuity: SARITHA 2 aa5 Triage Assessment: 17:01 Headache History: The patient has had previous headaches and this one is similar to ld1 previous episodes. General: Appears in no apparent distress. comfortable, Behavior is calm, cooperative, appropriate for age. Pain: Complains of pain in face Pain does not radiate. Pain currently is 8 out of 10 on a pain scale. Quality of pain is described as throbbing. EENT: No signs and/or symptoms were reported regarding the EENT system. Neuro: Level of Consciousness is awake, alert, obeys commands, Oriented to person, place, time, situation. Cardiovascular: Capillary refill < 3 seconds Patient's skin is warm and dry. Respiratory: Airway is patent Respiratory effort is even, unlabored. Historical: - Allergies: 14:45 Morphine; aa5 - PMHx: 14:45 Hypertensive disorder; Migraine; aa5 - PSHx: 14:45 Appendectomy; carpal tunnel right; hernia; left hand tendonitis; Mastoid surgery; Nerve aa5 transplantion; shunt; - Immunization history:: Adult Immunizations up to date. - Infectious Disease History:: Denies. - Social history:: Smoking status: Patient denies any tobacco usage or history of. Screenin:19 [facility] ED Fall Risk Assessment (Adult) History of falling in the last 3 months, ld1 including since admission No falls in past 3 months (0 pts). Abuse screen: Denies threats or abuse. Denies injuries from another. Nutritional screening: No deficits noted. Tuberculosis screening: No symptoms or risk factors identified. Assessment: 15:19 General: Appears in no apparent distress. comfortable, Behavior is cooperative, ld1 appropriate for age, anxious. Pain: Complains of pain in face Pain does not radiate. Pain currently is 9 out of 10 on a pain scale. Quality of pain is described as throbbing, Pain began gradually, Is continuous. Neuro: Level of Consciousness is awake, alert, obeys commands, Oriented to person, place, time, situation. Cardiovascular: Capillary refill < 3 seconds Patient's skin is warm and dry. Respiratory: Airway is patent Respiratory effort is even, unlabored. GI: Abdomen is round non-distended. : No signs and/or symptoms were reported regarding the genitourinary system. EENT: No signs and/or symptoms were reported regarding the EENT system. Derm: No signs and/or symptoms reported regarding the dermatologic system. Musculoskeletal: No signs and/or symptoms reported regarding the musculoskeletal system. 15:54 Reassessment: Patient appears in no apparent distress at this time. No changes from ld1 previously documented assessment. Patient and/or family updated on plan of care and expected duration. Pain level reassessed. 16:57 Reassessment: Patient appears in no apparent distress at this time. No changes from ld1 previously documented assessment. Patient and/or family updated on plan of care and expected duration. Pain level reassessed. Vital Signs: 14:45 BP 203 / 120; Pulse 76; Resp 20 S; Temp 98.6(O); Pulse Ox 99% on R/A; Weight 158.76 kg aa5 (R); Height 6 ft. 2 in. (R); 15:19 BP 162 / 99; Pulse 66; Resp 18; Pulse Ox 99% on R/A; Pain 9/10; ld1 15:54 BP 172 / 111; Pulse 78; Resp 18; Pulse Ox 95% on R/A; ld1 14:45 Body Mass Index 44.94 (158.76 kg, 187.96 cm) aa5 15:19 Pain Scale: Adult ld1 ED Course: 14:28 Patient arrived in ED. mg5 14:37 Pedro Luis Espinosa PA is PHCP. jr8 14:37 Talon Whitt MD is Attending Physician. jr8 14:45 Arm band placed on. aa5 14:46 Triage completed. aa5 15:19 Patient has correct armband on for positive identification. Placed in gown. Bed in low ld1 position. Call light in reach. Side rails up X2. counselor dormitory on. Pulse ox on. NIBP on. Door closed. Noise minimized. Warm blanket given. 15:19 No provider procedures requiring assistance completed. ld1 15:21 Chelsey Orellana, RN is Primary Nurse. ld1 15:35 Inserted saline lock: 20 gauge in right antecubital area, using aseptic technique. jr12 Blood collected. 16:37 Client placed on continuous cardiac and pulse oximetry monitoring. NIBP monitoring hb applied. counselor dormitory on. Pulse ox on. NIBP on. 17:01 IV discontinued, intact, bleeding controlled, No redness/swelling at site. ld1 Administered Medications: 15:33 Drug: diphenhydrAMINE IVP 25 mg IVP once Route: IVP; Site: left antecubital; nj1 15:34 Drug: Ketorolac IVP 10 mg 10 mg IVP once Route: IVP; Site: left antecubital; nj1 15:35 Drug: metoCLOPramide IVP 10 mg IVP once; over 1 to 2 minutes Route: IVP; Site: left nj1 antecubital; Medication: 15:19 VIS not applicable for this client. ld1 Outcome: 16:06 Discharge ordered by . jr8 17:00 Discharged to home ambulatory, ld1 17:00 Condition: stable 17:00 Discharge instructions given to patient, Instructed on discharge instructions, follow up and referral plans. Demonstrated understanding of instructions, follow-up care, 17:02 Patient left the ED. ld1 Signatures: Rain Mann RN RN aa5 Pedro Luis Espinosa PA PA jr8 Sophie Garcia RN RN Chelsey Orellana RN RN ld1 Osiris Cisneros RN RN nj1 Mary Jones 5 Latoya Solano jr12 Corrections: (The following items were deleted from the chart) 14:49 14:45 Chief complaint: Patient states: migraine aa5 aa5 14:49 14:45 Acuity: SARITHA 3 aa5 aa5 14:49 14:45 Pulse 76bpm; Resp 20bpm; Spontaneous; Pulse Ox 99% RA; Temp 98.6F Oral; 158.76 kg aa5 Reported; Height 6 ft. 2 in. Reported; BMI: 44.9; aa5
[2024-01-04 17:15] VITALS: TEMP 98.6
[2024-01-04 17:33] VITALS: BP 172/111; O2SAT 95
== END 2024-01-04 17:02 | disposition home or self-care (01) ==
LOC: ER 14:26
DX: G43.019 Migraine without aura, intractable, without status migrainosus (principal); I10 Essential (primary) hypertension; Z88.5 Allergy status to narcotic agent
CPT/HCPCS: 96375; 96374; 99285; J2765; J1200

== ENCOUNTER 2024-02-07 18:51 | Emergency (ER) | payer OTHER ==
[2024-02-07 19:44] LABS: Absolute Basophils 0.1 K/uL (0-0.5); Absolute Eosinophils 0.5 K/uL (0-0.5); Absolute Lymphocytes (CBC) 1.4 K/uL (0.7-4.9); Absolute Monocytes 0.5 K/uL (0.1-1.3); Absolute Neutrophil 5.7 K/uL (1.8-8.0); Basophils % 0.7 % (0-1.3); Hematocrit 44.2 % (39.6-49.0); Hemoglobin 14.4 g/dL (13.6-17.9); Lymphocytes % 17.2 % (15.3-44.8); MCH 27.3 pg (27.0-35.0); MCHC 32.7 g/dL (32.0-36.0); MCV 83.5 fL (80-100); MPV 8.6 fL (7.6-11.3); Monocytes % 5.7 % (3.3-12.3); Neutrophils % 70.4 % (41.7-73.7); Nucleated Red Blood Cells % 0.5 % (0-0); Platelets 219 thou/uL (152-406); RBC Red Blood Cell Count 5.29 M/uL (4.33-5.43); Red Cell Distribution Width 15.1 % (12.1-15.2)
[2024-02-07] MEDS ORDERED: METOCLOPRAMIDE 10 MG/2mL INJ ONE (20:02)
[2024-02-07] MEDS ORDERED: PANTOPRAZOLE 40 MG INJ ONE (20:02)
[2024-02-07] MEDS ORDERED: HYDROMORPHONE HCL 1 MG/ML INJ ONE ×2 (20:02→22:30)
[2024-02-07 20:18] LABS: Albumin 3.5 g/dL (3.4-5.0); Albumin/Globulin Ratio 0.9 (1.1-1.8); Anion Gap 7.9 mEq/L (5.0-15.0); Bilirubin Direct 0.2 mg/dL (0-0.2); Bilirubin Indirect, Calculated 0.6 mg/dL (0.2-0.8); Bilirubin Total 0.8 mg/dL (0.2-1.0); Globulin 3.7 g/dL (2.3-3.5); Magnesium 1.9 mg/dL (1.6-2.4); Potassium 3.9 mEq/L (3.5-5.1); Protein, Total 7.2 g/dL (6.4-8.2); Troponin High Sensitivity 10.9 pg/mL (<58.9)
[2024-02-07] MEDS ORDERED: ONDANSETRON 4 MG/2 ML VIAL ONE (20:20)
[2024-02-07 20:23] LABS: PT Prothrombin Time 10.6 SECONDS (9.4-12.5); Protime INR 0.96
--- NOTE | 2024-02-07 22:12 | RAD REPORT ---
EXAM DESCRIPTION: CT - Abdomen Pelvis W Contrast - 02/07/2024 9:55 pm CLINICAL HISTORY: Abdominal pain COMPARISON: 2022 TECHNIQUE: Computed axial tomography of the abdomen pelvis was obtained. 100 cc Isovue-300 was admin istered intravenously. Oral contrast was not requested which limits evaluation of bowel and appendix All CT scans are performed using dose optimization technique as appropriate and may include automated exposure control or mA/KV adjustment according to patient size. FINDINGS: Tiny hepatic cyst. Spleen, pancreas, adrenal and left kidney unremarkable. Mild malrotation right kidney There is no evidence of diverticulitis. A NETWORK SYSTEMS INTEGRATOR shunt tube being has its tip in the upper left upper quadrant between the stomach and liver Small umbilical hernia IMPRESSION: No acute abnormality is displayed.
--- NOTE | 2024-02-07 22:14 | RAD REPORT ---
EXAM DESCRIPTION: Audie Single View02/07/2024 9:22 pm CLINICAL HISTORY: Chest pain/vomiting COMPARISON: December 2023 FINDINGS: The lungs appear clear of acute infiltrate. The heart is normal size. Shunting courses th e right chest IMPRESSION: No acute abnormalities displayed
--- NOTE | 2024-02-07 23:37 | EDPHYS ---
Physician Documentation [facility] Name: Terry Akins Sr Age: 43 yrs Sex: Male : 1980 Arrival Date: 02/07/2024 Time: 18:51 Bed 19 Private MD: ED Physician Kobi Martines HPI: 02/06 19:35 This 43 yrs old Black Male presents to ER via Ambulatory with complaints of Vomiting - cp blood. 19:35 The patient presents to the emergency department with nausea, with "dry heaves", cp vomiting, that is continuous, described as bilious, bright red blood, diarrhea, that is continuous, abdominal pain, of the abdomen diffusely. Onset: The symptoms/episode began/occurred 4 day(s) ago, and became worse this morning. Possible causes: flare up of bowel problem, gastroparesis. Associated signs and symptoms: Pertinent negatives: constipation, fever. Severity of symptoms: in the emergency department the symptoms are unchanged despite home interventions. Historical: - Allergies: 19:12 Morphine; aa5 - PMHx: 19:12 Hypertensive disorder; Migraine; aa5 - PSHx: 19:12 Appendectomy; carpal tunnel right; hernia; left hand tendonitis; Mastoid surgery; Nerve aa5 transplantion; shunt; - Immunization history:: Adult Immunizations unknown. - Infectious Disease History:: Denies. - Social history:: Smoking status: Reported history of juuling and/or vaping. ROS: 19:40 Constitutional: Positive for poor PO intake, Negative for body aches, chills, fever, cp 19:40 Eyes: Negative for injury, pain, redness, and discharge, cp 19:40 Cardiovascular: Negative for chest pain, edema, palpitations, 19:40 Respiratory: Negative for cough, shortness of breath, wheezing, 19:40 Abdomen/GI: Positive for abdominal pain, nausea and vomiting, diarrhea, hematemesis, Negative for constipation, black/tarry stool, rectal bleeding, 19:40 Neuro: Negative for altered mental status, 19:40 All other systems are negative, Exam: 19:27 ECG was reviewed by the Attending Physician. cp 19:45 Constitutional: The patient appears in no acute distress, alert, awake, cp non-diaphoretic, non-toxic, well developed, well nourished, obese, uncomfortable, 19:45 Head/Face: Normocephalic, atraumatic. cp 19:45 Eyes: Periorbital structures: appear normal, Conjunctiva: normal, no exudate, no injection, Sclera: no appreciated abnormality, Lids and lashes: appear normal, bilaterally, 19:45 ENT: External ear(s): are unremarkable, Nose: is normal, Mouth: Lips: moist, Oral mucosa: pink and intact, moist, Posterior pharynx: Airway: no evidence of obstruction, patent, 19:45 Chest/axilla: Inspection: normal, Palpation: is normal, no crepitus, no tenderness, 19:45 Cardiovascular: Rate: normal, Rhythm: regular, Edema: ankle edema, that is moderate, 19:45 Respiratory: the patient does not display signs of respiratory distress, Respirations: normal, no use of accessory muscles, no retractions, labored breathing, is not present, Breath sounds: are clear throughout, no decreased breath sounds, 19:45 Abdomen/GI: Inspection: obese Bowel sounds: active, all quadrants, Palpation: soft, in all quadrants, severe abdominal tenderness, in all quadrants, rebound tenderness, is not appreciated, involuntary guarding, is not appreciated, 19:45 Back: CVA tenderness, is absent, 19:45 Neuro: Orientation: to person, place \\T\\ time. Mentation: is normal, Vital Signs: 19:11 BP 208 / 108; Pulse 85; Resp 19 S; Temp 97.8(TE); Pulse Ox 100% on R/A; Weight 172.37 aa5 kg (R); Height 6 ft. 2 in. (R); 20:16 BP 174 / 105; Pulse 92; Resp 16; Pulse Ox 98% on R/A; nj1 21:30 BP 137 / 86; Pulse 80; Resp 17 S; Pulse Ox 95% on R/A; ha1 22:00 BP 144 / 104; Pulse 74; Resp 17 S; Pulse Ox 99% on R/A; ha1 23:00 BP 149 / 83; Pulse 70; Resp 17 S; Pulse Ox 98% on R/A; ha1 19:11 Body Mass Index 48.79 (172.37 kg, 187.96 cm) aa5 MDM: 19:15 Patient medically screened. cp 20:00 Differential diagnosis: Nonspecific abd pain, gastritis, pancreatitis, diverticulitis, cp gastroenteritis, bowel obstruction. 23:36 Data reviewed: vital signs, nurses notes, lab test result(s), EKG, radiologic studies, cp CT scan, plain films. 23:36 I considered the following discharge prescriptions or medication management in the emergency department Medications were administered in the Emergency Department. See MAR. Independent interpretation of the following test(s) in the Emergency Department EKG: See my EKG interpretation above. Care significantly affected by the following chronic conditions: Hypertension, Obesity. Counseling: I had a detailed discussion with the patient and/or guardian regarding the historical points, exam findings, and any diagnostic results supporting the discharge/admit diagnosis, lab results, radiology results. Response to treatment: the patient's symptoms have markedly improved after treatment, and as a result, I will discharge patient. ED course: VSS. Pain and nausea markedly improved. Will discharge to home for continued monitoring. 02/06 19:29 Order name: Basic Metabolic Panel; Complete Time: 21:10 02/06 21:10 Interpretation: Normal except: CL 111; GFR 77. 02/06 19:29 Order name: CBC with Diff; Complete Time: 21:10 02/06 19:29 Order name: LFT's; Complete Time: 21:10 02/06 19:29 Order name: Magnesium; Complete Time: 21:10 02/06 19:29 Order name: NT PRO-BNP; Complete Time: 21:10 02/06 19:29 Order name: PT-INR; Complete Time: 21:10 02/06 19:29 Order name: Troponin HS; Complete Time: 21:10 02/06 19:44 Order name: Lipase; Complete Time: 21:10 02/06 19:29 Order name: XRAY Chest (1 view); Complete Time: 22:16 02/06 22:16 Interpretation: Report review. 02/06 21:11 Order name: CT Abd/Pelvis - IV Contrast Only; Complete Time: 22:16 02/06 22:17 Interpretation: Report reviewed. 02/06 19:29 Order name: Cardiac monitoring; Complete Time: 19:32 02/06 19:29 Order name: EKG - Nurse/Tech; Complete Time: 19:32 02/06 19:29 Order name: IV Saline Lock; Complete Time: 19:32 02/06 19:29 Order name: Labs collected and sent; Complete Time: :32 cp 02/06 19:29 Order name: O2 Per Protocol; Complete Time: :32 cp 02/06 19:29 Order name: O2 Sat Monitoring; Complete Time: :32 cp 02/06 22:17 Order name: PO challenge; Complete Time: 22:34 cp EC: Rate is 71 beats/min. Rhythm is regular. WV interval is prolonged at 218 msec. QRS cp interval is normal. QT interval is normal. T waves are Inverted in leads I, II, aVL, V4, V5, V6. Interpreted by me. Reviewed by me. Administered Medications: 20:00 Drug: HYDROmorphone IVP 1 mg IVP once Route: IVP; Site: right antecubital; 2 21:00 Follow up: Response: No adverse reaction; Marked relief of symptoms; Pain is decreased; ha1 RASS: Alert and Calm (0) 20:03 Drug: Pantoprazole IVP 40 mg IVP once Route: IVP; Site: right antecubital; 2 21:00 Follow up: Response: No adverse reaction; Marked relief of symptoms ha1 20:05 Drug: metoCLOPramide IVP 10 mg IVP once; over 1 to 2 minutes Route: IVP; Site: right [facility] antecubital; 21:00 Follow up: Response: No adverse reaction; Marked relief of symptoms ha1 20:37 Drug: Ondansetron IVP 4 mg IVP once; over 2 minutes Route: IVP; Site: right antecubital;2 21:00 Follow up: Response: No adverse reaction; Marked relief of symptoms ha1 22:34 Drug: HYDROmorphone IVP 1 mg IVP once Route: IVP; Site: right antecubital; ha1 23:00 Follow up: Response: No adverse reaction; Pain is decreased; RASS: Alert and Calm (0) ha1 Disposition: 02/07 19:01 Co-signature as Attending Physician, Kobi Martines MD I reviewed the patient's care rt provided by the Advanced Practice Provider and agree with the diagnosis and treatment plan. Disposition Summary: 02/07/24 23:37 Discharge Ordered Notes: Location: Home cp Problem: an acute exacerbation cp Symptoms: have improved cp Condition: Stable cp Diagnosis - Abdominal pain, unspecified cp - Nausea with vomiting, unspecified cp Followup: cp - With: Sukhi Toledo MD - When: 2 - 3 days - Reason: Recheck today's complaints Discharge Instructions: - Discharge Summary Sheet cp - Abdominal Pain, Adult cp - Nausea and Vomiting, Adult cp Forms: - Medication Reconciliation Form cp - Antibiotic Education cp - Prescription Opioid Use cp - Patient Portal Instructions cp - Leadership Thank You Letter cp Prescriptions: - Carafate 1 gram Oral tablet - take 1 tablet ORAL route 4 times per day take on an empty stomach, beginning on cp waking and last dose at bedtime. dissolve tablet in small amount warm water prior to ingestion; 100 tablet; Refills: 0, Product Selection Permitted - Protonix 40 mg Oral Tablet - take 1 tablet ORAL route once daily; 30 tablet; Refills: 0, Product Selection cp Permitted - ondansetron 8 mg Oral Tablet,disintegrating - take 1 tablet ORAL route every 12 hours; 20 tablet; Refills: 0, Product cp Selection Permitted Signatures: Dispatcher [employer] EDMS Rain Mann, RN RN aa5 Talon Lakhani PA PA cp Anne Donovan, RN RN ha1 Kobi Martines MD MD rt Osiris Cisneros RN RN nj1 Pauly Hadley, RN RN kj2 Corrections: (The following items were deleted from the chart) 02/06 19:29 19:29 BASIC METABOLIC PANEL+C.LAB.BRZ ordered. EDMS EDMS 19:29 19:29 CBC+H.LAB.BRZ ordered. EDMS EDMS 19:29 19:29 HEPATIC FUNCTION+C.LAB.BRZ ordered. EDMS EDMS 19:29 19:29 MAGNESIUM+C.LAB.BRZ ordered. EDMS EDMS 19:29 19:29 PROBNP+C.LAB.BRZ ordered. EDMS EDMS 19:29 19:29 PROTIME (+INR)+COAG.LAB.BRZ ordered. EDMS EDMS 19:29 19:29 Troponin High Sensitivity+C.LAB.BRZ ordered. EDMS EDMS 19:29 19:29 Chest Single View+RAD.RAD.BRZ ordered. EDMS EDMS 21:11 21:11 Abdomen Pelvis W Con+CT.RAD.BRZ ordered. EDMS EDMS
--- NOTE | 2024-02-07 23:37 | ER ---
Nurse's Notes [facility] Name: Terry Akins Sr Age: 43 yrs Sex: Male : 1980 Arrival Date: 02/07/2024 Time: 18:51 Bed 19 Private MD: Diagnosis: Abdominal pain, unspecified;Nausea with vomiting, unspecified Presentation: 02/06 19:11 Chief complaint: Patient states: vomiting bright red blood since this morning. Reports aa5 abdominal cramping, and diarrhea since Saturday. Coronavirus screen: diarrhea, vomiting. Ebola Screen: Patient denies travel to an Ebola-affected area in the 21 days before illness onset. Initial Sepsis Screen: Does the patient meet any 2 criteria? No. Patient's initial sepsis screen is negative. Does the patient have a suspected source of infection? No. Patient's initial sepsis screen is negative. Risk Assessment: Do you want to hurt yourself or someone else? Patient reports no desire to harm self or others. Onset of symptoms was February 07, 2024. 19:11 Method Of Arrival: Ambulatory aa5 19:11 Acuity: SARITHA 2 aa5 Historical: - Allergies: 19:12 Morphine; aa5 - PMHx: 19:12 Hypertensive disorder; Migraine; aa5 - PSHx: 19:12 Appendectomy; carpal tunnel right; hernia; left hand tendonitis; Mastoid surgery; Nerve aa5 transplantion; shunt; - Immunization history:: Adult Immunizations unknown. - Infectious Disease History:: Denies. - Social history:: Smoking status: Reported history of juuling and/or vaping. Screenin:30 [facility] ED Fall Risk Assessment (Adult) History of falling in the last 3 months, nj1 including since admission No falls in past 3 months (0 pts) Confusion or Disorientation No (0 pts) Intoxicated or Sedated No (0 pts) Impaired Gait No (0 pts) Mobility Assist Device Used No (0 pt) Altered Elimination No (0 pt) Score/Fall Risk Level 0 - 2 = Low Risk Oriented to surroundings, Maintained a safe environment, Hourly rounding (assess needs \T\ fall precautionary measures) done. Abuse screen: Denies threats or abuse. Denies injuries from another. Nutritional screening: No deficits noted. Tuberculosis screening: No symptoms or risk factors identified. Assessment: 19:29 General: Appears in no apparent distress. uncomfortable, Behavior is calm, cooperative, nj1 appropriate for age. Neuro: Level of Consciousness is awake, alert, obeys commands, Oriented to person, place, time, situation. Cardiovascular: Patient's skin is warm and dry. Respiratory: Airway is patent Respiratory effort is even, unlabored. GI: Reports diarrhea, nausea, vomiting. 19:30 Pain: Complains of pain in abdomen. nj1 20:16 GI: Pt is actively vomiting. nj1 21:15 Reassessment: Patient and/or family updated on plan of care and expected duration. Pain ha1 level reassessed. Patient is alert, oriented x 3, equal unlabored respirations, skin warm/dry/pink. 22:12 Reassessment: Patient and/or family updated on plan of care and expected duration. Pain ha1 level reassessed. Patient is alert, oriented x 3, equal unlabored respirations, skin warm/dry/pink. 23:14 Reassessment: Patient and/or family updated on plan of care and expected duration. Pain ha1 level reassessed. Patient is alert, oriented x 3, equal unlabored respirations, skin warm/dry/pink. Patient states feeling better. Patient states symptoms have improved. 23:50 Reassessment: Patient and/or family updated on plan of care and expected duration. Pain ha1 level reassessed. Patient is alert, oriented x 3, equal unlabored respirations, skin warm/dry/pink. Patient denies pain at this time. Patient states feeling better. Patient states symptoms have improved. Vital Signs: 19:11 BP 208 / 108; Pulse 85; Resp 19 S; Temp 97.8(TE); Pulse Ox 100% on R/A; Weight 172.37 aa5 kg (R); Height 6 ft. 2 in. (R); 20:16 BP 174 / 105; Pulse 92; Resp 16; Pulse Ox 98% on R/A; nj1 21:30 BP 137 / 86; Pulse 80; Resp 17 S; Pulse Ox 95% on R/A; ha1 22:00 BP 144 / 104; Pulse 74; Resp 17 S; Pulse Ox 99% on R/A; ha1 23:00 BP 149 / 83; Pulse 70; Resp 17 S; Pulse Ox 98% on R/A; ha1 19:11 Body Mass Index 48.79 (172.37 kg, 187.96 cm) aa5 ED Course: 18:53 Patient arrived in ED. ra3 19:01 [facility] cp 19:01 Kobi Martines MD is Attending Physician. cp 19:12 Triage completed. aa5 19:12 Arm band placed on. aa5 19:28 Osiris Cisneros, BRYN is Primary Nurse. nj1 19:28 Inserted saline lock: 20 gauge in right antecubital area, using aseptic technique. nj1 Blood collected. Initiated by Anne CLEMENTE. 19:31 Patient has correct armband on for positive identification. Bed in low position. Call nj1 light in reach. Provided Education on: call light, fall precautions. 20:18 Client placed on continuous cardiac and pulse oximetry monitoring. NIBP monitoring kj2 applied. auto adjudication specialist on. 20:18 EKG done, by ED staff, reviewed by Talon WILLIAMSON. kj2 21:05 Report given to Anne CLEMENTE. nj1 21:24 XRAY Chest (1 view) In Process Unspecified. EDMS 21:57 CT Abd/Pelvis - IV Contrast Only In Process Unspecified. EDMS 23:36 Sukhi Toledo MD is Referral Physician. cp 23:55 No provider procedures requiring assistance completed. IV discontinued, intact, ha1 bleeding controlled, No redness/swelling at site. Pressure dressing applied. Administered Medications: 20:00 Drug: HYDROmorphone IVP 1 mg IVP once Route: IVP; Site: right antecubital; kj2 21:00 Follow up: Response: No adverse reaction; Marked relief of symptoms; Pain is decreased; ha1 RASS: Alert and Calm (0) 20:03 Drug: Pantoprazole IVP 40 mg IVP once Route: IVP; Site: right antecubital; kj2 21:00 Follow up: Response: No adverse reaction; Marked relief of symptoms ha1 20:05 Drug: metoCLOPramide IVP 10 mg IVP once; over 1 to 2 minutes Route: IVP; Site: right kj2 antecubital; 21:00 Follow up: Response: No adverse reaction; Marked relief of symptoms ha1 20:37 Drug: Ondansetron IVP 4 mg IVP once; over 2 minutes Route: IVP; Site: right antecubital;kj2 21:00 Follow up: Response: No adverse reaction; Marked relief of symptoms ha1 22:34 Drug: HYDROmorphone IVP 1 mg IVP once Route: IVP; Site: right antecubital; ha1 23:00 Follow up: Response: No adverse reaction; Pain is decreased; RASS: Alert and Calm (0) ha1 Medication: 23:56 VIS not applicable for this client. ha1 Outcome: 23:37 Discharge ordered by MD. 23:55 Discharged to home ambulatory, ha1 23:55 Condition: stable 23:55 Condition: stable 23:55 Discharge instructions given to patient, Instructed on discharge instructions, follow up and referral plans. medication usage, Demonstrated understanding of instructions, follow-up care, medications, Prescriptions given X 3, 23:56 Patient left the ED. ha1 Signatures: Dispatcher [employer] EDMS Rain Mann, RN RN aa5 Talon Lakhani PA PA cp Ayala, Heidy RN RN ha1 Osiris Cisneros RN RN nj1 Denisha Villafana 3 Pauly Hadley RN RN kj2 Corrections: (The following items were deleted from the chart) 19:13 19:11 Acuity: SARITHA 3 aa5 aa5 19:30 19:29 GI: Reports nausea, vomiting, nj1 nj1
[2024-02-08 00:44] VITALS: BP 149/83; TEMP 97.8; O2SAT 98
--- NOTE | 2024-02-10 14:21 | EKG ---
Test Date: 2024-02-07 Test Time: 19:22:23 Associate Entertainment Editor: TURNER MEASUREMENT RESULTS: Intervals: Rate: 71 WV: 218 QRSD: 92 QT: 390 QTc: 423 Melber: P: 30 WV: 218 QRS: 3 T: 163 INTERPRETIVE STATEMENTS: Sinus rhythm with 1st degree AV block Left ventricular hypertrophy with repolarization abnormality Abnormal ECG Compared to ECG 01/01/2024 22:13:35 Myocardial infarct finding no longer present Electronically Signed On 02-10-24 14:16:11 CDT by Nick Esteban
== END 2024-02-07 23:56 | disposition home or self-care (01) ==
LOC: ER 18:51
DX: R10.9 Unspecified abdominal pain (principal); R11.2 Nausea with vomiting, unspecified
CPT/HCPCS: 85025; 80048; 36415; 83735; 85610; 80076; 84484; 83690; 83880; 74177; 71045; 96375; 96374; 99285; Q9967; J2765; C9113; J1170 ×2; J2405; 93005

== ENCOUNTER 2024-02-13 21:11 | Emergency (ER) | payer OTHER ==
[2024-02-13] MEDS ORDERED: PROMETHAZINE INJ 25 MG/ML AMP ONE (21:49)
[2024-02-13] MEDS ORDERED: KETOROLAC 30 MG/ML INJ ONE (21:49)
[2024-02-13] MEDS ORDERED: HYDROMORPHONE HCL 2 MG/ML inj ONE (21:50)
--- NOTE | 2024-02-13 22:29 | ER ---
Nurse's Notes [facility] Name: Terry Akins Sr Age: 43 yrs Sex: Male : 1980 Arrival Date: 02/13/2024 Time: 21:11 Bed 19 Private MD: Diagnosis: Fractured dental restorative material;Pain, unspecified Presentation: 02/12 21:14 Chief complaint: Patient states: patient c/o toothache L lower back side starting about al5 1-2 hours. took 2 meloxicam, 3 gabapentin, washed mouth with hemp oil, peroxide, and salt water and nothing has worked. Coronavirus screen: At this time, the client does not indicate any symptoms associated with coronavirus-19. Ebola Screen: No symptoms or risks identified at this time. Initial Sepsis Screen: Does the patient meet any 2 criteria? No. Patient's initial sepsis screen is negative. Does the patient have a suspected source of infection? No. Patient's initial sepsis screen is negative. Risk Assessment: Do you want to hurt yourself or someone else? Patient reports no desire to harm self or others. Onset of symptoms was February 13, 2024. 21:14 Method Of Arrival: Ambulatory al5 21:14 Acuity: SARITHA 4 al5 Triage Assessment: 21:22 General: Appears uncomfortable, Behavior is cooperative, in pain. Pain: Complains of al5 pain in L lower side of jaw, tooth Pain currently is 10 out of 10 on a pain scale. Quality of pain is described as pressure, stabbing, throbbing, Pain began 2 hours ago. Is continuous. EENT: pain in L lower jaw. Reports pain in left jaw. Neuro: No deficits noted. Level of Consciousness is awake, alert, obeys commands, Oriented to person, place, time, situation. Cardiovascular: No deficits noted. Capillary refill < 3 seconds Patient's skin is warm and dry. Respiratory: No deficits noted. Airway is patent Trachea midline Respiratory effort is even, unlabored, Respiratory pattern is regular, symmetrical. GI: No deficits noted. No signs and/or symptoms were reported involving the gastrointestinal system. : No deficits noted. No signs and/or symptoms were reported regarding the genitourinary system. Derm: No deficits noted. No signs and/or symptoms reported regarding the dermatologic system. Skin is intact, Skin is pink, warm \T\ dry. normal, Skin temperature is warm. Musculoskeletal: No deficits noted. No signs and/or symptoms reported regarding the musculoskeletal system. Historical: - Allergies: 21:21 Morphine; al5 - Home Meds: 21:21 gabapentin oral [Active]; Norvasc Oral [Active]; al5 - PMHx: 21:21 Hypertensive disorder; Migraine; al5 - Immunization history:: Adult Immunizations up to date. - Infectious Disease History:: Denies. - Social history:: Smoking status: Reported history of juuling and/or vaping. Screenin:37 [facility] ED Fall Risk Assessment (Adult) History of falling in the last 3 months, rg5 including since admission No falls in past 3 months (0 pts) Confusion or Disorientation No (0 pts) Intoxicated or Sedated No (0 pts) Impaired Gait No (0 pts) Mobility Assist Device Used No (0 pt) Altered Elimination No (0 pt) Score/Fall Risk Level 0 - 2 = Low Risk Oriented to surroundings, Maintained a safe environment, Educated pt \T\ family on fall prevention, incl call for assistance when getting out of bed, Hourly rounding (assess needs \T\ fall precautionary measures) done. Abuse screen: Denies threats or abuse. Denies injuries from another. Nutritional screening: No deficits noted. Tuberculosis screening: No symptoms or risk factors identified. Assessment: 21:24 General: Appears uncomfortable, Behavior is cooperative. Pain: Complains of pain in rg5 left jaw Pain does not radiate. Pain currently is 10 out of 10 on a pain scale. Neuro: Level of Consciousness is awake, alert, obeys commands, Oriented to person, place, time, situation. Cardiovascular: Capillary refill < 3 seconds Patient's skin is warm and dry. Respiratory: Airway is patent Respiratory effort is even, unlabored, Respiratory pattern is regular, symmetrical. Derm: Skin is pink, warm \T\ dry. 22:21 Reassessment: Patient and/or family updated on plan of care and expected duration. Pain rg5 level reassessed. Patient is alert, oriented x 3, equal unlabored respirations, skin warm/dry/pink. pain 6/10 Patient states feeling better. Patient states symptoms have improved. Vital Signs: 21:14 BP 226 / 127; Pulse 83; Resp 18; Temp 97.8(TE); Pulse Ox 98% on R/A; Weight 172.37 kg; al5 Height 6 ft. 3 in. ; Pain 10/10; 22:00 BP 160 / 93; Pulse 74; Resp 17; Temp 98.3; Pulse Ox 100% ; Pain 6/10; rg5 21:14 Body Mass Index 47.50 (172.37 kg, 190.5 cm) al5 21:14 Pain Scale: Adult al5 22:00 Pain Scale: Adult rg5 [place] Coma Score: 22:00 Eye Response: spontaneous(4). Motor Response: obeys commands(6). Verbal Response: rg5 oriented(5). Total: 15. ED Course: 21:12 Patient arrived in ED. mr 21:21 Triage completed. al5 21:24 Arm band placed on left wrist. Patient placed in an exam room, on a stretcher. al5 21:24 Patient has correct armband on for positive identification. Placed in gown. Bed in low rg5 position. Call light in reach. Side rails up X 1. 21:35 Juan M Acuña, BRYN is Primary Nurse. rg5 21:41 Rupert Andres MD is Attending Physician. bo1 22:27 Jozef Garrett DDS is Referral Physician. bo1 22:33 No provider procedures requiring assistance completed. rg5 22:34 Provided Education on: POST ER CARE. rg5 22:34 Patient did not have IV access during this emergency room visit. rg5 Administered Medications: 22:01 Drug: Ketorolac IM 60 mg IM once Route: IM; Site: right deltoid; rg5 22:33 Follow up: Response: Pain is decreased rg5 22:01 Drug: HYDROmorphone IM 2 mg IM once Route: IM; Site: right deltoid; rg5 22:33 Follow up: Response: Pain is decreased rg5 22:01 Drug: Promethazine IM 25 mg IM once Route: IM; Site: right deltoid; rg5 22:32 Follow up: Response: No adverse reaction rg5 22:42 Drug: Lidocaine Infiltration (2 %) 100 mg 5 ml Infiltration once; to bedside {Note: rg5 ADMINISTERED BY PROVIDER.} Volume: 5 ml; Route: Infiltration; 22:43 Follow up: Response: Pain is decreased rg5 Medication: 21:37 VIS not applicable for this client. rg5 Outcome: 22:29 Discharge ordered by . bo1 22:34 Discharged to home ambulatory, rg5 22:34 Condition: stable 22:34 Discharge instructions given to patient, Instructed on discharge instructions, follow up and referral plans. medication usage, Demonstrated understanding of instructions, follow-up care, medications, 22:44 Patient left the ED. rg5 Signatures: Barry Ghislaine, Reg Reg mr Rupert Andres MD MD bo1 Juan M Acuña RN RN rg5 Lisa Hare RN RN al5 Corrections: (The following items were deleted from the chart) 21:22 21:21 PSHx: carpal tunnel right; al5 al5 21:22 21:21 PSHx: left hand tendonitis; al5 al5 21:22 21:21 PSHx: Appendectomy; al5 al5 21:22 21:21 PSHx: hernia; al5 al5 21:22 21:21 PSHx: Nerve transplantion; al5 al5 21:22 21:21 PSHx: shunt; al5 al5 21:22 21:21 PSHx: Mastoid surgery; al5 al5
--- NOTE | 2024-02-13 22:29 | EDPHYS ---
Physician Documentation [facility] Name: Terry Akins Sr Age: 43 yrs Sex: Male : 1980 Arrival Date: 02/13/2024 Time: 21:11 Bed 19 Private MD: ED Physician Rupert Andres HPI: 02/12 22:46 This 43 yrs old Black Male presents to ER via Ambulatory with complaints of Toothache. 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 10/10 bo1 pain since. BP is elevated.. Onset: The symptoms/episode began/occurred acutely, just prior to arrival. BP goes up if in pain. Pt cannot take injectable morphine.. Historical: - Allergies: 21:21 Morphine; al5 - Home Meds: 21:21 gabapentin oral [Active]; Norvasc Oral [Active]; al5 - PMHx: 21:21 Hypertensive disorder; Migraine; al5 - Immunization history:: Adult Immunizations up to date. - Infectious Disease History:: Denies. - Social history:: Smoking status: Reported history of juuling and/or vaping. ROS: 22:24 ENT: Positive for Teeth pain bo1 22:24 Cardiovascular: Negative for chest pain, palpitations, bo1 22:25 Respiratory: Negative for shortness of breath, bo1 22:47 Neck: Negative for injury, pain, and swelling, bo1 Exam: 22:25 Constitutional: This is a well developed, well nourished patient who is awake, alert, bo1 and in acute distress. ENT: Nares patent. No nasal discharge, no septal abnormalities noted. Tympanic membranes are normal and external auditory canals are clear. Oropharynx with no redness, swelling, or masses, exudates, or evidence of obstruction, uvula midline. Mucous membranes moist. 22:25 ENT: Dental exam: pain, that is severe, Missing filling in the back molar of the left lower row of teeth., Vital Signs: 21:14 BP 226 / 127; Pulse 83; Resp 18; Temp 97.8(TE); Pulse Ox 98% on R/A; Weight 172.37 kg; al5 Height 6 ft. 3 in. ; Pain 10/10; 22:00 BP 160 / 93; Pulse 74; Resp 17; Temp 98.3; Pulse Ox 100% ; Pain 6/10; rg5 21:14 Body Mass Index 47.50 (172.37 kg, 190.5 cm) al5 21:14 Pain Scale: Adult al5 22:00 Pain Scale: Adult rg5 [place] Coma Score: 22:00 Eye Response: spontaneous(4). Motor Response: obeys commands(6). Verbal Response: rg5 oriented(5). Total: 15. Procedures: 22:45 Nerve block: (dental) of left inferior alveolar nerve, Medication: Lidocaine 2% without bo1 epinephrine, Amount: 5 mls were injected, Effect: the patient's symptoms are improved, Performed by Rupert Andres MD Patient tolerated well. MDM: 21:41 Patient medically screened. bo1 22:26 ED course: Pt is more comfortable. Talking with his spouse on the phone.. bo1 22:46 Data reviewed: vital signs, Elevated due to "pain.". bo1 Administered Medications: 22:01 Drug: Ketorolac IM 60 mg IM once Route: IM; Site: right deltoid; rg5 22:33 Follow up: Response: Pain is decreased rg5 22:01 Drug: HYDROmorphone IM 2 mg IM once Route: IM; Site: right deltoid; rg5 22:33 Follow up: Response: Pain is decreased rg5 22:01 Drug: Promethazine IM 25 mg IM once Route: IM; Site: right deltoid; rg5 22:32 Follow up: Response: No adverse reaction rg5 22:42 Drug: Lidocaine Infiltration (2 %) 100 mg 5 ml Infiltration once; to bedside {Note: rg5 ADMINISTERED BY PROVIDER.} Volume: 5 ml; Route: Infiltration; 22:43 Follow up: Response: Pain is decreased rg5 Disposition Summary: 02/13/24 22:29 Discharge Ordered Notes: Location: Home bo1 Problem: new bo1 Symptoms: are unchanged bo1 Condition: Stable bo1 Diagnosis - Fractured dental restorative material bo1 - Pain, unspecified bo1 Followup: bo1 - With: Jozef Garrett DDS - When: Tomorrow - Reason: Recheck today's complaints Discharge Instructions: - Discharge Summary Sheet bo1 - Dental Pain, [id number] bo1 Forms: - Medication Reconciliation Form bo1 - Antibiotic Education bo1 - Prescription Opioid Use bo1 - Patient Portal Instructions bo1 - Leadership Thank You Letter bo1 Prescriptions: - Hydrocodone-Acetaminophen 10-325 mg Oral Tablet - take 1 tablet ORAL route every 6 hours As needed; 12 tablet; Refills: 0, bo1 Product Selection Permitted Signatures: Rupert Andres MD MD bo1 Juan M Acuña, RN RN rg5 Lisa Hare RN RN al5 Corrections: (The following items were deleted from the chart) 21:22 21:21 PSHx: carpal tunnel right; al5 al5 21:22 21:21 PSHx: left hand tendonitis; al5 al5 21:22 21:21 PSHx: Appendectomy; al5 al5 21:22 21:21 PSHx: hernia; al5 al5 21:22 21:21 PSHx: Nerve transplantion; al5 al5 21:22 21:21 PSHx: shunt; al5 al5 21:22 21:21 PSHx: Mastoid surgery; al5 al5
[2024-02-13] MEDS ORDERED: LIDOCAINE 2% MPF 5 ML VIAL ONE (22:34)
[2024-02-13 23:01] VITALS: BP 160/93; TEMP 98.3; O2SAT 100
== END 2024-02-13 22:44 | disposition home or self-care (01) ==
LOC: ER 21:11
DX: K08.531 Fractured dental restorative material with loss of material (principal); Z88.5 Allergy status to narcotic agent
CPT/HCPCS: 96372; 99284; J2550; J2001; J1170

== ENCOUNTER 2024-02-14 08:56 | Emergency (ER) | payer OTHER ==
[2024-02-14] MEDS ORDERED: BUPIVACAINE 0.5% PF 10 ML VIAL ONE (09:31)
[2024-02-14] MEDS ORDERED: FENTANYL CITR 100 MCG/2 ML ONE (09:32)
--- NOTE | 2024-02-14 09:53 | ER ---
Nurse's Notes [facility] Name: Terry Akins Sr Age: 43 yrs Sex: Male : 1980 Arrival Date: 02/14/2024 Time: 08:56 Bed 17 Private MD: Diagnosis: Dental pain Presentation: 02/13 09:11 Chief complaint: Patient states: "I was seen here for a toothache last night, they gave rs5 me something for pain and told me to follow up with my dentist. My dentist isn't available and the pain meds you guys gave me aren't working". Coronavirus screen: At this time, the client does not indicate any symptoms associated with coronavirus-19. Ebola Screen: No symptoms or risks identified at this time. Initial Sepsis Screen: Does the patient meet any 2 criteria? No. Patient's initial sepsis screen is negative. Does the patient have a suspected source of infection? No. Patient's initial sepsis screen is negative. Risk Assessment: Do you want to hurt yourself or someone else? Patient reports no desire to harm self or others. Onset of symptoms was February 14, 2024. 09:11 Method Of Arrival: Ambulatory rs5 09:11 Acuity: SARITHA 3 rs5 Historical: - Allergies: 08:59 Morphine; ll1 - PMHx: 08:59 Hypertensive disorder; Migraine; ll1 - Immunization history:: Adult Immunizations up to date. - Infectious Disease History:: Denies. - Social history:: Smoking status: Patient denies any tobacco usage or history of. - Family history:: not pertinent. Screenin:00 [facility] ED Fall Risk Assessment (Adult) History of falling in the last 3 months, rs5 including since admission No falls in past 3 months (0 pts) Confusion or Disorientation No (0 pts) Intoxicated or Sedated No (0 pts) Impaired Gait No (0 pts) Mobility Assist Device Used No (0 pt) Altered Elimination No (0 pt) Score/Fall Risk Level 0 - 2 = Low Risk Oriented to surroundings, Maintained a safe environment. Abuse screen: Denies threats or abuse. Nutritional screening: No deficits noted. Tuberculosis screening: No symptoms or risk factors identified. Assessment: 08:59 General: Appears in no apparent distress. uncomfortable, Behavior is cooperative, rs5 anxious. Pain: Complains of pain in left side of jaw Pain currently is 10 out of 10 on a pain scale. Quality of pain is described as aching, Is continuous. Neuro: Level of Consciousness is awake, alert, obeys commands, Oriented to person, place, time, situation. Cardiovascular: Patient's skin is warm and dry. Respiratory: Airway is patent Respiratory effort is even, unlabored, Respiratory pattern is regular, symmetrical. GI: Abdomen is round non-distended, Abd is soft and non tender X 4 quads. : No signs and/or symptoms were reported regarding the genitourinary system. EENT: Reports pain in tooth on left lower jaw. 08:59 Derm: Skin is intact, Skin is dry, Skin is normal, Skin temperature is warm. rs5 Musculoskeletal: Range of motion: intact in all extremities. 09:30 Reassessment: provider at bedside. rs5 10:06 Reassessment: Patient is alert, oriented x 3, equal unlabored respirations, skin rs5 warm/dry/pink. Patient states feeling better. Vital Signs: 09:11 BP 204 / 107; Pulse 80; Resp 17; Temp 97.8(TE); Pulse Ox 99% on R/A; rs5 09:20 BP 170 / 88; Pulse 77; Resp 17; Pulse Ox 99% on R/A; rs5 09:50 BP 165 / 86; Pulse 73; Resp 17; Pulse Ox 99% on R/A; rs5 ED Course: 08:57 Patient arrived in ED. im 08:59 Kobi Martines MD is Attending Physician. rt 08:59 Arm band placed on Patient placed in an exam room, on a stretcher. ll1 09:00 Patient has correct armband on for positive identification. Placed in gown. Bed in low rs5 position. Call light in reach. Side rails up X2. 09:00 No provider procedures requiring assistance completed. rs5 09:11 Tristan De Guzman, BRYN is Primary Nurse. rs5 09:13 Triage completed. rs5 10:00 Patient did not have IV access during this emergency room visit. rs5 Administered Medications: 09:33 Drug: fentaNYL (PF) IM 100 mcg IM once Route: IM; Site: left deltoid; rs5 10:05 Follow up: Response: No adverse reaction; Pain is decreased rs5 09:59 Drug: Bupivacaine-Epinephrine Infiltration (0.5 %) 5 ml Infiltration once; to bedside rs5 Route: Infiltration; 10:05 Follow up: Response: No adverse reaction; Pain is decreased rs5 Medication: 09:22 VIS not applicable for this client. rs5 Outcome: 09:53 Discharge ordered by . rt 10:00 Discharged to home ambulatory, rs5 10:00 Condition: stable 10:00 Discharge instructions given to patient, family, Instructed on discharge instructions, follow up and referral plans. Demonstrated understanding of instructions, follow-up care, 10:10 Patient left the ED. rs5 Signatures: Anand Badillo RN RN ll1 Kobi Martines MD MD rt Tristan De Guzman RN RN rs5 Keyana Villalba Corrections: (The following items were deleted from the chart) 10:11 10:11 BP 166 / 86; Pulse 73bpm; Resp 17bpm; Pulse Ox 99% RA; rs5 rs5
--- NOTE | 2024-02-14 09:53 | EDPHYS ---
Physician Documentation [facility] Name: Terry Akins Sr Age: 43 yrs Sex: Male : 1980 Arrival Date: 02/14/2024 Time: 08:56 Bed 17 Private MD: ED Physician Kobi Martines HPI: 02/13 10:07 This 43 yrs old Black Male presents to ER via Ambulatory with complaints of Toothache. rt 10:07 Patient presents to the ED with dental pain starting last night. Patient was seen in rt the ED, nerve blocks performed. Patient was found to have a filling that came out on the left lower molar. Was able to get to the dentist today, states that the pain is worsened. Denies other acute complaints, symptoms are moderate in severity, no other aggravating or alleviating factors.. Historical: - Allergies: 08:59 Morphine; ll1 - PMHx: 08:59 Hypertensive disorder; Migraine; ll1 - Immunization history:: Adult Immunizations up to date. - Infectious Disease History:: Denies. - Social history:: Smoking status: Patient denies any tobacco usage or history of. - Family history:: not pertinent. ROS: 10:07 Constitutional: Negative for fever, chills, and weight loss, MS/Extremity: Negative for rt injury and deformity, Skin: Negative for injury, rash, and discoloration, Neuro: Negative for headache, weakness, numbness, tingling, and seizure, 10:07 ENT: Positive for dental pain, Exam: 10:07 Constitutional: This is a well developed, well nourished patient who is awake, alert, rt and in no acute distress. Skin: Warm, dry with normal turgor. Normal color with no rashes, no lesions, and no evidence of cellulitis. Neuro: Awake and alert, GCS 15, oriented to person, place, time, and situation. Cranial nerves II-XII grossly intact. Motor strength 5/5 in all extremities. Sensory grossly intact. Cerebellar exam normal. Normal gait. 10:07 ENT: Fractured lower molar on the left, no gingival, oropharyngeal swelling, pus noted. Vital Signs: 09:11 BP 204 / 107; Pulse 80; Resp 17; Temp 97.8(TE); Pulse Ox 99% on R/A; rs5 09:20 BP 170 / 88; Pulse 77; Resp 17; Pulse Ox 99% on R/A; rs5 09:50 BP 165 / 86; Pulse 73; Resp 17; Pulse Ox 99% on R/A; rs5 Procedures: 10:07 Performed Inferior alveolar nerve block. 0.5% Marcaine was injected at the area given rt failure alveolar nerve, good analgesia was obtained. No bleeding.. MDM: 09:25 Patient medically screened. rt 10:07 Differential diagnosis: Dental caries, dental fracture. Data reviewed: vital signs, rt nurses notes. I considered the following discharge prescriptions or medication management in the emergency department Medications were administered in the Emergency Department. See MAR. Test considered but Not performed: CT: No physical exam findings consistent with an abscess, CT scan is not indicated. Care significantly affected by the following chronic conditions: Hypertension. Counseling: I had a detailed discussion with the patient and/or guardian regarding the historical points, exam findings, and any diagnostic results supporting the discharge/admit diagnosis, the need for outpatient follow up. Response to treatment: the patient's symptoms have markedly improved after treatment. Administered Medications: 09:33 Drug: fentaNYL (PF) IM 100 mcg IM once Route: IM; Site: left deltoid; rs5 10:05 Follow up: Response: No adverse reaction; Pain is decreased rs5 09:59 Drug: Bupivacaine-Epinephrine Infiltration (0.5 %) 5 ml Infiltration once; to bedside rs5 Route: Infiltration; 10:05 Follow up: Response: No adverse reaction; Pain is decreased rs5 Disposition Summary: 02/14/24 09:53 Discharge Ordered Notes: Location: Home rt Problem: new rt Symptoms: have improved rt Condition: Stable rt Diagnosis - Dental pain rt Followup: rt - With: Private Physician - When: 2 - 3 days - Reason: Discharge Instructions: - Discharge Summary Sheet rt - Dental Pain rt Forms: - Medication Reconciliation Form rt - Antibiotic Education rt - Prescription Opioid Use rt - Patient Portal Instructions rt - Leadership Thank You Letter rt Prescriptions: - Ultram 50 mg Oral tablet - take 1 tablet ORAL route every 6 hours As needed; 9 tablet; Refills: 0, Product rt Selection Permitted Signatures: Anand Badillo RN RN ll1 Kobi Martines MD MD rt Tristan De Guzman RN RN rs5
[2024-02-14 10:27] VITALS: BP 204/107; TEMP 97.8; O2SAT 99
== END 2024-02-14 10:10 | disposition home or self-care (01) ==
LOC: ER 08:56
DX: K08.89 Other specified disorders of teeth and supporting structures (principal)
CPT/HCPCS: 96372; 99284; J3010

== ENCOUNTER 2024-06-03 07:25 | Emergency (ER) | payer OTHER ==
--- NOTE | 2024-06-03 07:56 | ER ---
Nurse's Notes [facility] Name: Terry Akins Sr Age: 43 yrs Sex: Male : 1980 Arrival Date: 06/03/2024 Time: 07:25 Bed 8 Private MD: Diagnosis: Headache-HIGH RAW SUGAR BOILER SHUNT MALFUNCTION Presentation: 06/03 07:49 Chief complaint: Patient states: RUQ pain since last night, feels like he can't take a iw deep breath in, has HIGH RAW SUGAR BOILER shunt and feels like it's inflamed. Coronavirus screen: At this time, the client does not indicate any symptoms associated with coronavirus-19. Ebola Screen: No symptoms or risks identified at this time. Initial Sepsis Screen: Does the patient meet any 2 criteria? No. Patient's initial sepsis screen is negative. Does the patient have a suspected source of infection? No. Patient's initial sepsis screen is negative. Risk Assessment: Do you want to hurt yourself or someone else? Patient reports no desire to harm self or others. Onset of symptoms was June 02, 2024. 07:49 Method Of Arrival: Ambulatory iw 07:49 Acuity: SARITHA 3 iw Historical: - Allergies: 07:50 Morphine; iw - PMHx: 07:50 Hypertensive disorder; Migraine; HIGH RAW SUGAR BOILER SHUNT; iw - Immunization history:: Adult Immunizations up to date. - Infectious Disease History:: Denies. - Social history:: Smoking status: Reported history of juuling and/or vaping. - Family history:: not pertinent. Screenin:15 [facility] ED Fall Risk Assessment (Adult) History of falling in the last 3 months, hb including since admission No falls in past 3 months (0 pts) Confusion or Disorientation No (0 pts) Intoxicated or Sedated No (0 pts) Impaired Gait No (0 pts) Mobility Assist Device Used No (0 pt) Altered Elimination No (0 pt) Score/Fall Risk Level 0 - 2 = Low Risk Oriented to surroundings, Maintained a safe environment, Educated pt \T\ family on fall prevention, incl call for assistance when getting out of bed. Abuse screen: Denies threats or abuse. Denies injuries from another. Nutritional screening: No deficits noted. Tuberculosis screening: No symptoms or risk factors identified. Assessment: 07:55 General: Appears in no apparent distress. Behavior is calm, cooperative. Pain: Pain hb currently is 10 out of 10 on a pain scale. Neuro: GCS 15. Reports headache. Cardiovascular: Patient's skin is warm and dry. Respiratory: Respiratory effort is even, unlabored, Respiratory pattern is regular, symmetrical. GI: Reports nausea. : No signs and/or symptoms were reported regarding the genitourinary system. EENT: No signs and/or symptoms were reported regarding the EENT system. Derm: Skin is pink, warm \T\ dry. Musculoskeletal: No signs and/or symptoms reported regarding the musculoskeletal system. 09:00 Reassessment: Patient appears in no apparent distress at this time. Patient and/or hb family updated on plan of care and expected duration. Pain level reassessed. Patient is alert, oriented x 3, equal unlabored respirations, skin warm/dry/pink. Vital Signs: 07:51 BP 158 / 113; Pulse 89; Resp 18; Temp 98.6; Pulse Ox 97% on R/A; Weight 158.76 kg; iw Height 6 ft. 3 in. ; 08:52 BP 147 / 81; Pulse 84; Resp 16; Pulse Ox 97% on R/A; Pain 8/10; hb 09:16 BP 151 / 88; Pulse 80; Resp 16; Pulse Ox 100% ; hb 07:51 Body Mass Index 43.75 (158.76 kg, 190.5 cm) iw 08:52 Pain Scale: Adult hb [place] Coma Score: 07:53 Eye Response: spontaneous(4). Motor Response: obeys commands(6). Verbal Response: sin oriented(5). Total: 15. ED Course: 07:29 Patient arrived in ED. im 07:42 Talon Whitt MD is Attending Physician. sin 07:50 Triage completed. iw 07:51 Arm band placed on. iw 07:55 initiated transfer to [facility]. bd 08:02 pt accepted in transfer to [facility] ER by dr Pang admin approval given by Betty Chamberlain. 08:11 Initial lab(s) drawn, by me, sent to lab. COVID swab sent to lab. Flu and/or RSV swab hb sent to lab. Inserted saline lock: 20 gauge in right antecubital area, using aseptic technique. Blood collected. Flushed with 10 mL NS. 08:12 Comprehensive Metabolic Panel Sent. hb 08:12 CBC with Diff Sent. hb 08:12 Flu Sent. hb 08:12 PT-INR Sent. hb 08:12 SARS RAPID Sent. hb 08:[address] via stretcher. hb 08:14 CT Head Brain wo Cont In Process Unspecified. EDMS 08:15 Patient has correct armband on for positive identification. Provided Education on: hb tests, result times. 08:26 Shuntogram XRAY In Process Unspecified. EDMS 08:48 Sophie Garcia, RN is Primary Nurse. hb 09:20 No provider procedures requiring assistance completed. Patient transferred, IV remains hb in place. Administered Medications: 08:12 Drug: NS 0.9% IV 500 ml 500 ml IV at 1 bolus once; to be given as a bolus over 30 hb minutes Volume: 500 ml; Route: IV; Rate: 1 bolus; Site: right antecubital; 09:21 Follow up: Response: No adverse reaction; IV Status: Completed infusion; IV Intake: hb 500ml 08:12 Drug: HYDROmorphone IVP 1 mg IVP once Route: IVP; Site: right antecubital; hb 08:40 Follow up: Response: No adverse reaction hb 08:12 Drug: Ondansetron IVP 4 mg IVP once; over 2 minutes Route: IVP; Site: right antecubital;hb 08:40 Follow up: Response: No adverse reaction hb 08:51 Drug: HYDROmorphone IVP 1 mg IVP once Route: IVP; Site: right antecubital; hb 09:21 Follow up: Response: No adverse reaction; Pain is decreased hb Medication: 09:19 VIS not applicable for this client. hb Intake: 09:21 IV: 500ml; Total: 500ml. hb Outcome: 07:56 ER care complete, transfer ordered by MD. vogt 09:20 Transferred by ground EMS to [facility], hb 09:20 Condition: stable 09:20 Instructed on the need for transfer, Demonstrated understanding of instructions, 09:30 Patient left the ED. hb Signatures: Dispatcher [employer] EDMS Tracie Olivia Corey, MD MD cha Williams, Irene, RN RN Sophie Garcia, BRYN RN Keyana Villalba
--- NOTE | 2024-06-03 07:56 | EDPHYS ---
Physician Documentation [facility] Name: Terry Akins Sr Age: 43 yrs Sex: Male : 1980 Arrival Date: 06/03/2024 Time: 07: Bed 8 Private MD: ED Physician Talon Whitt HPI: 06/03 07:51 This 43 yrs old Black Male presents to ER via Ambulatory with complaints of Pain All sin Over. 07:51 The patient complains of pain to the top of head, forehead, right eye, right christian, sin right frontal area, right side of the back of head, right occipital area and right base of the skull. The patient describes the headache as constant. Onset: The symptoms/episode began/occurred 1 day(s) ago. The patient presents with abdominal pain in the upper abdomen, abdominal distention in the upper abdomen, in the lower abdomen. Associated signs and symptoms: The patient has no apparent associated signs or symptoms. Severity of symptoms: At its worst the pain was moderate, in the emergency department the pain is unchanged. Headache History: The patient has had previous headaches and this one is similar to previous episodes. 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 - Infectious Disease History:: Denies. - Social history:: Smoking status: Reported history of juuling and/or vaping. - Family history:: not pertinent. ROS: 07:51 Constitutional: Negative for fever, chills, and weight loss, Eyes: Negative for injury, sin pain, redness, and discharge, ENT: Negative for injury, pain, and discharge, Neck: Negative for injury, pain, and swelling, Cardiovascular: Negative for chest pain, palpitations, and edema, Respiratory: Negative for shortness of breath, cough, wheezing, and pleuritic chest pain, Back: Negative for injury and pain, : Negative for injury, bleeding, discharge, and swelling, MS/Extremity: Negative for injury and deformity, Skin: Negative for injury, rash, and discoloration, Psych: Negative for depression, anxiety, suicide ideation, homicidal ideation, and hallucinations, Allergy/Immunology: Negative for hives, rash, and allergies, Endocrine: Negative for neck swelling, polydipsia, polyuria, polyphagia, and marked weight changes, Hematologic/Lymphatic: Negative for swollen nodes, abnormal bleeding, and unusual bruising, 07:51 Abdomen/GI: Positive for abdominal pain, Exam: 07:51 Constitutional: This is a well developed, well nourished patient who is awake, alert, sin and in no acute distress. Head/Face: Normocephalic, atraumatic. Eyes: Pupils equal round and reactive to light, extra-ocular motions intact. Lids and lashes normal. Conjunctiva and sclera are non-icteric and not injected. Cornea within normal limits. Periorbital areas with no swelling, redness, or edema. ENT: Nares patent. No nasal discharge, no septal abnormalities noted. Tympanic membranes are normal and external auditory canals are clear. Oropharynx with no redness, swelling, or masses, exudates, or evidence of obstruction, uvula midline. Mucous membranes moist. Neck: Trachea midline, no thyromegaly or masses palpated, and no cervical lymphadenopathy. Supple, full range of motion without nuchal rigidity, or vertebral point tenderness. No Meningismus. Chest/axilla: Normal chest wall appearance and motion. Nontender with no deformity. No lesions are appreciated. Cardiovascular: Regular rate and rhythm with a normal S1 and S2. No gallops, murmurs, or rubs. Normal PMI, no JVD. No pulse deficits. Respiratory: Lungs have equal breath sounds bilaterally, clear to auscultation and percussion. No rales, rhonchi or wheezes noted. No increased work of breathing, no retractions or nasal flaring. Abdomen/GI: Soft, non-tender, with normal bowel sounds. No distension or tympany. No guarding or rebound. No evidence of tenderness throughout. Back: No spinal tenderness. No costovertebral tenderness. Full range of motion. Male : Normal genitalia with no discharge or lesions. Skin: Warm, dry with normal turgor. Normal color with no rashes, no lesions, and no evidence of cellulitis. MS/ Extremity: Pulses equal, no cyanosis. Neurovascular intact. Full, normal range of motion. Neuro: Awake and alert, GCS 15, oriented to person, place, time, and situation. Cranial nerves II-XII grossly intact. Motor strength 5/5 in all extremities. Sensory grossly intact. Cerebellar exam normal. Normal gait. Psych: Awake, alert, with orientation to person, place and time. Behavior, mood, and affect are within normal limits. Vital Signs: 07:51 BP 158 / 113; Pulse 89; Resp 18; Temp 98.6; Pulse Ox 97% on R/A; Weight 158.76 kg; iw Height 6 ft. 3 in. ; 08:52 BP 147 / 81; Pulse 84; Resp 16; Pulse Ox 97% on R/A; Pain 8/10; hb 09:16 BP 151 / 88; Pulse 80; Resp 16; Pulse Ox 100% ; hb 07:51 Body Mass Index 43.75 (158.76 kg, 190.5 cm) iw 08:52 Pain Scale: Adult hb Omar Coma Score: 07:53 Eye Response: spontaneous(4). Motor Response: obeys commands(6). Verbal Response: sin oriented(5). Total: 15. MDM: 07:42 Medical Screening Exam initiated sin 07:53 Differential diagnosis: cerebral abscess, cluster headache, epidural hematoma, sin glaucoma, hypertensive headache, meningitis, migraine, sinusitis, tension headache, bowel obstruction. Data reviewed: vital signs, nurses notes, lab test result(s), radiologic studies, CT scan, plain films. Consideration of Admission/Observation Escalation of care including admission/observation considered. I considered the following discharge prescriptions or medication management in the emergency department Medications were administered in the Emergency Department. See MAR. Historians other than the Patient: EMS: ems well informed. 06/03 07:44 Order name: CBC with Diff; Complete Time: 08:36 [facility] 06/03 07:44 Order name: Comprehensive Metabolic Panel [facility] 06/03 07:56 Order name: PT-INR; Complete Time: 08:36 [facility] 06/03 07:56 Order name: Flu; Complete Time: 09:09 [facility] 06/03 07:56 Order name: SARS RAPID; Complete Time: 09:09 [facility] 06/03 07:44 Order name: CT Head Brain wo Cont; Complete Time: 08:36 [facility] 06/03 07:44 Order name: Shuntogram XRAY sin 06/03 08:22 Order name: Labs - recollect needed: recollect green top; Complete Time: 08:48 bd Administered Medications: 08:12 Drug: NS 0.9% IV 500 ml 500 ml IV at 1 bolus once; to be given as a bolus over 30 hb minutes Volume: 500 ml; Route: IV; Rate: 1 bolus; Site: right antecubital; 09:21 Follow up: Response: No adverse reaction; IV Status: Completed infusion; IV Intake: hb 500ml 08:12 Drug: HYDROmorphone IVP 1 mg IVP once Route: IVP; Site: right antecubital; hb 08:40 Follow up: Response: No adverse reaction hb 08:12 Drug: Ondansetron IVP 4 mg IVP once; over 2 minutes Route: IVP; Site: right antecubital;hb 08:40 Follow up: Response: No adverse reaction hb 08:51 Drug: HYDROmorphone IVP 1 mg IVP once Route: IVP; Site: right antecubital; hb 09:21 Follow up: Response: No adverse reaction; Pain is decreased hb Disposition Summary: 06/03/24 07:56 Transfer Ordered Notes: Transfer Location: [facility] Reason: Higher level of care sin Condition: Stable sin Problem: new sin Symptoms: have improved sin Accepting Physician: to [facility](06/03/24 09:30) hb Diagnosis - Headache - 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 EDMS EDMS 09:30 07:56 to [facility] sin hb
[2024-06-03] MEDS ORDERED: NA CHLORIDE 0.9% 1,000 ML ONE (07:57)
[2024-06-03] MEDS ORDERED: HYDROMORPHONE HCL 1 MG/ML INJ ONE ×2 (07:57→08:49)
[2024-06-03] MEDS ORDERED: ONDANSETRON 4 MG/2 ML VIAL ONE (07:57)
[2024-06-03 08:16] LABS: Absolute Basophils 0.1 K/uL (0-0.5); Absolute Eosinophils 0.6 K/uL (0-0.5); Absolute Lymphocytes (CBC) 2.3 K/uL (0.7-4.9); Absolute Monocytes 0.5 K/uL (0.1-1.3); Absolute Neutrophil 4.5 K/uL (1.8-8.0); Eosinophils % 7.9 % (0-4.4); Hematocrit 42.5 % (39.6-49.0); Hemoglobin 13.9 g/dL (13.6-17.9); Lymphocytes % 28.6 % (15.3-44.8); MCH 27.8 pg (27.0-35.0); MCHC 32.8 g/dL (32.0-36.0); MCV 84.6 fL (80-100); MPV 8.9 fL (7.6-11.3); Monocytes % 6.5 % (3.3-12.3); Nucleated Red Blood Cells % 0.1 % (0-0); Platelets 190 thou/uL (152-406); RBC Red Blood Cell Count 5.02 M/uL (4.33-5.43); Red Cell Distribution Width 14.9 % (12.1-15.2)
[2024-06-03 08:21] LABS: PT Prothrombin Time 10.4 SECONDS (9.4-12.5); Protime INR 0.93
--- NOTE | 2024-06-03 08:22 | RAD REPORT ---
EXAM: CT Head Brain Wo Cont HISTORY: HEADACHE COMPARISON: 03/04/2024 TECHNIQUE: Multiple contiguous axial images were obtained for a CT of the brain without contrast. Sag ittal and coronal reformats were performed. One or more of the following dose reduction techniques were used: Automated exposure control, adjus tment of the mA and kV according to patient size, and iterative reconstruction. Unless otherwise specified, incidental findings do not require dedicated imaging follow-up. FINDINGS: No evidence of hydrocephalus, intracranial hemorrhage, or extra-axial fluid collection. Stable positi oning of a right parietal approach ventriculostomy catheter, with tip terminating near the right foramen of Ruelas. Stable ventricular caliber. The brain is normal in morphology. The calvarium is intact. The visualized paranasal sinuses are well-aerated. Sequelae of left canal wa ll up mastoidectomy again seen. IMPRESSION: No evidence of acute intracranial abnormality. Stable findings as above.
[2024-06-03 08:53] LABS: SARS-CoV-2 Antigen CONTROL BLUE LINE VIS/BG OK; SARS-CoV-2 Antigen Rapid Res Negative (Negative)
[2024-06-03 09:13] LABS: Albumin 3.3 g/dL (3.4-5.0); Albumin/Globulin Ratio 0.9 (1.1-1.8); Anion Gap 7.8 mEq/L (5.0-15.0); Bilirubin Total 0.4 mg/dL (0.2-1.0); Globulin 3.6 g/dL (2.3-3.5); Potassium 3.8 mEq/L (3.5-5.1); Protein, Total 6.9 g/dL (6.4-8.2)
--- NOTE | 2024-06-03 10:57 | RAD REPORT ---
EXAM: X R Shuntogram CLINICAL INDICATION: [facility] MAIN PAIN Bed Name: 8 TECHNIQUE: 2 views of the skull and cervical spine. AP views of the chest and abdomen. COMPARISON: None FINDINGS: Right parietal approach ventricular shunt in place, with reservoir along the right parietal bone. Jayda nt catheter courses along the right neck, right anterior chest wall, and upper abdomen, terminating in the upper abdomen right of midline. No evidence of discontinuity or kinking. Calvarium and Skull base: No definite fracture. Other: None IMPRESSION: Normal shuntogram.
[2024-06-03 14:33] VITALS: TEMP 98.6
[2024-06-03 14:35] VITALS: BP 151/88; O2SAT 100
== END 2024-06-03 09:30 | disposition short-term general hospital (02) ==
LOC: ER 07:25
DX: T85.09XA Other mechanical complication of ventricular intracranial (communicating) shunt, initial encounter (principal); R10.10 Upper abdominal pain, unspecified; I10 Essential (primary) hypertension; Z11.52 Encounter for screening for COVID-19
CPT/HCPCS: 85025; 36415; 85610; 80053; 87804 ×2; 70450; 75809; 49427; 87811; J1170 ×2; J2405; J7030

== ENCOUNTER 2024-11-16 03:28 | Emergency (ER) | payer OTHER, SELFPAY ==
[2024-11-16] MEDS ORDERED: PANTOPRAZOLE 40 MG INJ ONE (03:56)
[2024-11-16] MEDS ORDERED: MORPHINE 4 MG/ML SYR ONE (03:57)
[2024-11-16] MEDS ORDERED: NA CHLORIDE 0.9% 1,000 ML ONE (03:57)
[2024-11-16] MEDS ORDERED: METOCLOPRAMIDE 10 MG/2mL INJ ONE (03:57)
[2024-11-16] MEDS ORDERED: MORPHINE 2 MG/ML SYR ONE (03:57)
[2024-11-16] MEDS ORDERED: NA CHLORIDE 0.9% 50 ML ONE (03:58)
[2024-11-16 04:04] LABS: PT Prothrombin Time 10.1 SECONDS (10-13.0); Protime INR 0.88
[2024-11-16 04:05] LABS: Absolute Basophils 0.1 K/uL (0-0.5); Absolute Eosinophils 0.6 K/uL (0-0.5); Absolute Lymphocytes (CBC) 3.2 K/uL (0.7-4.9); Absolute Monocytes 0.4 K/uL (0.1-1.3); Absolute Neutrophil 3.2 K/uL (1.8-8.0); Basophils % 1.3 % (0-1.3); Eosinophils % 8.5 % (0-4.4); Hematocrit 44.9 % (39.6-49.0); Hemoglobin 14.9 g/dL (13.6-17.9); Lymphocytes % 42.3 % (15.3-44.8); MCH 27.9 pg (27.0-35.0); MCHC 33.3 g/dL (32.0-36.0); MCV 83.8 fL (80-100); Monocytes % 5.2 % (3.3-12.3); Neutrophils % 42.7 % (41.7-73.7); Nucleated Red Blood Cells % 0.1 % (0-0); Platelets 198 thou/uL (152-406); RBC Red Blood Cell Count 5.36 M/uL (4.33-5.43); Red Cell Distribution Width 14.5 % (12.1-15.2)
[2024-11-16 04:19] LABS: ALT/SGPT 34 U/L (16-61); AST/SGOT 20 U/L (15-37); Albumin 3.6 g/dL (3.4-5.0); Alkaline Phosphatase 124 U/L (45-117); Anion Gap 8.8 mEq/L (5.0-15.0); BUN Blood Urea Nitrogen 14 mg/dL (7-18); Bicarbonate 28 mEq/L (21-32); Bilirubin Total 0.4 mg/dL (0.2-1.0); Globulin 3.7 g/dL (2.3-3.5); Glomerular Filtration Rate 72 ml/min (=/>90); Glucose Level 114 mg/dL (74-106); Lipase 25 U/L (13-75); Magnesium 2.2 mg/dL (1.6-2.4); NT PRO-BNP 72 pg/mL (<125); Potassium 3.8 mEq/L (3.5-5.1); Protein, Total 7.3 g/dL (6.4-8.2); Sodium Level 140 mEq/L (136-145)
[2024-11-16 04:31] LABS: Bilirubin Direct < 0.2 mg/dL (0-0.2); Bilirubin Indirect, Calculated 0.2 mg/dL (0.2-0.8)
[2024-11-16] MEDS ORDERED: ONDANSETRON 4 MG/2 ML VIAL ONE (05:42)
[2024-11-16] MEDS ORDERED: MAGNES/ALUMIN/SIMET 30ML UCUP ONE (05:42)
[2024-11-16] MEDS ORDERED: HYDROMORPHONE HCL 1 MG/ML INJ ONE (05:42)
[2024-11-16] MEDS ORDERED: LIDOCAINE VISCOUS 2% 10ML ORAL SOLN ONE (05:43)
--- NOTE | 2024-11-16 05:48 | RAD REPORT ---
EXAM: XR Chest, 1 View CLINICAL HISTORY: The patient is 44 years old and is Male; epigastric pain TECHNIQUE: Frontal view of the chest. COMPARISON: No relevant prior studies available. FINDINGS: Lungs: Unremarkable. No consolidation. Pleural space: Unremarkable. No pneumothorax. Heart: Unremarkable. Mediastinum: Unremarkable. Normal mediastinal contour. Bones/joints: No acute findings. Tubes, lines and devices: Catheter overlying the right chest. * A single impression for all exams can be found at the end of this report EXAM: CT Abdomen and Pelvis With Intravenous Contrast CLINICAL HISTORY: The patient is 44 years old and is Male; epigastric pain TECHNIQUE: Axial computed tomography images of the abdomen and pelvis with intravenous contrast. Sagittal and coronal reformatted images were created and reviewed. This CT exam was performed using one or more of the following dose reduction techniques: automated exposure control, adjustmen t of the mA and/or kV according to patient size, and/or use of iterative reconstruction technique. COMPARISON: No relevant prior studies available. FINDINGS: Lung bases: Unremarkable. No mass. No consolidation. ABDOMEN: Liver: Unremarkable. No mass. Gallbladder and bile ducts: Unremarkable. No calcified stones. No ductal dilation. Pancreas: Unremarkable. No mass. No ductal dilation. Spleen: Unremarkable. No splenomegaly. Adrenals: Unremarkable. No mass. Kidneys and ureters: Unremarkable. No solid mass. No hydronephrosis. Stomach and bowel: Unremarkable. No obstruction. No mucosal thickening. PELVIS: Appendix: No findings to suggest acute appendicitis. Bladder: Unremarkable. Reproductive: Unremarkable as visualized. ABDOMEN and PELVIS: Intraperitoneal space: Unremarkable. No free air. No significant fluid collection. Bones/joints: No acute fracture. No dislocation. Soft tissues: Unremarkable. Vasculature: Unremarkable. No abdominal aortic aneurysm. Lymph nodes: Unremarkable. No enlarged lymph nodes. 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 * A single impression for all exams can be found at the end of this report IMPRESSION: XR Chest, 1 View: No acute findings in the chest. CT Abdomen and Pelvis With Intravenous Contrast: No acute finding in the abdomen/pelvis. Electronically signed by: Dinesh Ly MD 11/16/2024 05:45 AM CDT RP 8 Due to temporary technical issues with the PACS/[employer] reporting system, reports are being arin d by the in-house radiologist without review as a courtesy to ensure prompt reporting the interpreting radiologist is fully responsible for the content of the report. Transcribed Date/Time: 11/16/2024 5:47 AM
--- NOTE | 2024-11-16 06:01 | RAD REPORT ---
EXAM: XR Chest, 1 View CLINICAL HISTORY: The patient is 44 years old and is Male; epigastric pain TECHNIQUE: Frontal view of the chest. COMPARISON: No relevant prior studies available. FINDINGS: Lungs: Unremarkable. No consolidation. Pleural space: Unremarkable. No pneumothorax. Heart: Unremarkable. Mediastinum: Unremarkable. Normal mediastinal contour. Bones/joints: No acute findings. Tubes, lines and devices: Catheter overlying the right chest. * A single impression for all exams can be found at the end of this report EXAM: CT Abdomen and Pelvis With Intravenous Contrast CLINICAL HISTORY: The patient is 44 years old and is Male; epigastric pain TECHNIQUE: Axial computed tomography images of the abdomen and pelvis with intravenous contrast. Sagittal and coronal reformatted images were created and reviewed. This CT exam was performed using one or more of the following dose reduction techniques: automated exposure control, adjustmen t of the mA and/or kV according to patient size, and/or use of iterative reconstruction technique. COMPARISON: No relevant prior studies available. FINDINGS: Lung bases: Unremarkable. No mass. No consolidation. ABDOMEN: Liver: Unremarkable. No mass. Gallbladder and bile ducts: Unremarkable. No calcified stones. No ductal dilation. Pancreas: Unremarkable. No mass. No ductal dilation. Spleen: Unremarkable. No splenomegaly. Adrenals: Unremarkable. No mass. Kidneys and ureters: Unremarkable. No solid mass. No hydronephrosis. Stomach and bowel: Unremarkable. No obstruction. No mucosal thickening. PELVIS: Appendix: No findings to suggest acute appendicitis. Bladder: Unremarkable. Reproductive: Unremarkable as visualized. ABDOMEN and PELVIS: Intraperitoneal space: Unremarkable. No free air. No significant fluid collection. Bones/joints: No acute fracture. No dislocation. Soft tissues: Unremarkable. Vasculature: Unremarkable. No abdominal aortic aneurysm. Lymph nodes: Unremarkable. No enlarged lymph nodes. 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 * A single impression for all exams can be found at the end of this report IMPRESSION: XR Chest, 1 View: No acute findings in the chest. CT Abdomen and Pelvis With Intravenous Contrast: No acute finding in the abdomen/pelvis. Electronically signed by: Dinesh Ly MD 11/16/2024 05:45 AM CDT RP 8 Due to temporary technical issues with the PACS/[employer] reporting system, reports are being arin d by the in-house radiologist without review as a courtesy to ensure prompt reporting the interpreting radiologist is fully responsible for the content of the report. Transcribed Date/Time: 11/16/2024 6:01 AM
--- NOTE | 2024-11-16 06:12 | EDPHYS ---
Physician Documentation [facility] Name: Terry Akins Sr Age: 44 yrs Sex: Male : 1980 Arrival Date: 11/16/2024 Time: 03:28 Bed 6 Private MD: ED Physician Talon Whitt HPI: 11/16 03:45 This 44 yrs old Black Male presents to ER via Ambulatory with complaints of Epigastric cp Pain, Nausea/Vomiting. 03:45 The patient presents with abdominal pain in the epigastric area. Onset: The cp symptoms/episode began/occurred 2 week(s) ago. The symptoms radiate to xiphoid area and substernal area. Associated signs and symptoms: Pertinent positives: nausea and vomiting, Pertinent negatives: vomiting blood. Severity of pain: in the emergency department the pain is unchanged despite home interventions. 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 - Infectious Disease History:: Denies. - Social history:: Smoking status: Reported history of juuling and/or vaping. Patient/guardian denies using alcohol, street drugs. ROS: 03:50 Constitutional: Negative for body aches, chills, fever, cp 03:50 Eyes: Negative for injury, pain, redness, and discharge, cp 03:50 ENT: Negative for drainage from ear(s), ear pain, sore throat, difficulty swallowing, difficulty handling secretions, 03:50 Cardiovascular: Negative for edema, palpitations, 03:50 Respiratory: Negative for cough, shortness of breath, wheezing, 03:50 Abdomen/GI: Positive for abdominal pain, nausea and vomiting, of the epigastric area, Negative for diarrhea, constipation, 03:50 Neuro: Negative for altered mental status, dizziness, weakness, 03:50 All other systems are negative, Exam: 03:55 Constitutional: The patient appears in no acute distress, alert, awake, cp non-diaphoretic, non-toxic, well developed, well nourished, obese, uncomfortable, 03:55 Head/Face: Normocephalic, atraumatic. cp 03:55 Eyes: Periorbital structures: appear normal, Conjunctiva: normal, no exudate, no injection, Sclera: no appreciated abnormality, Lids and lashes: appear normal, bilaterally, 03:55 ENT: External ear(s): are unremarkable, Nose: is normal, Mouth: Lips: moist, Oral mucosa: moist, Posterior pharynx: Airway: no evidence of obstruction, patent, 03:55 Chest/axilla: Inspection: normal, 03:55 Cardiovascular: Rate: tachycardic, Rhythm: regular, Edema: is not appreciated, JVD: is not appreciated, 03:55 Respiratory: the patient does not display signs of respiratory distress, Respirations: normal, no use of accessory muscles, no retractions, labored breathing, is not present, Breath sounds: are clear throughout, no decreased breath sounds, no stridor, no wheezing, 03:55 Abdomen/GI: Inspection: obese Bowel sounds: active, all quadrants, Palpation: soft, in all quadrants, moderate abdominal tenderness, in the epigastric area, rebound tenderness, is not appreciated, involuntary guarding, is not appreciated, 03:55 Neuro: Orientation: to person, place \T\ time. Mentation: is normal, Motor: moves all fours, strength is normal, 04:03 ECG was reviewed by the Attending Physician. cp 05:35 ECG was reviewed by the Attending Physician. sin Vital Signs: 03:30 BP 160 / 98; Pulse 103; Resp 17; Temp 97.3(TE); Pulse Ox 100% on R/A; Weight 158.76 kg; br2 Height 6 ft. 3 in. ; Pain 10/10; 04:00 BP 128 / 80; Pulse 88; Resp 12; Pulse Ox 99% ; vc1 04:45 BP 130 / 88; Pulse 78; Resp 15; Pulse Ox 94% ; vc1 05:30 BP 114 / 84; Pulse 76; Resp 14; Pulse Ox 99% ; vc1 03:30 Body Mass Index 43.75 (158.76 kg, 190.5 cm) br2 03:30 Pain Scale: Adult br2 NIH Stroke Scale Scores: 05:36 NIHSS Score: 0 sin MDM: 03:32 Medical Screening Exam initiated cp 04:55 Differential diagnosis: Nonspecific abd pain, gastritis, cholecystitis, pancreatitis, sin appendicitis, diverticulitis, viral gastroenteritis, gastroenteritis. Data reviewed: vital signs, nurses notes, lab test result(s), EKG, radiologic studies, plain films. Consideration of Admission/Observation Escalation of care including admission/observation considered. I considered the following discharge prescriptions or medication management in the emergency department Medications were administered in the Emergency Department. See MAR. Independent interpretation of the following test(s) in the Emergency Department EKG: See my EKG interpretation above. Test considered but Not performed: Ultrasound no us gb. Historians other than the Patient: pt well informed. Care significantly affected by the following chronic conditions: Hypertension, Obesity, vp sales shunt. Counseling: I had a detailed discussion with the patient and/or guardian regarding the historical points, exam findings, and any diagnostic results supporting the discharge/admit diagnosis, the presence of at least one elevated blood pressure reading (>120/80) during this emergency department visit, lab results, radiology results, the need for outpatient follow up, for definitive care, a family practitioner. 11/16 03:41 Order name: Basic Metabolic Panel; Complete Time: 04:34 cp 11/16 04:35 Interpretation: Normal except: GLUC 114; GFR 72. cp 11/16 03:41 Order name: CBC with Diff; Complete Time: 04:21 cp 11/16 04:21 Interpretation: Normal except: EOSINOPHIL % 8.5; EOSA 0.6. cp 11/16 03:41 Order name: LFT's; Complete Time: 04:34 cp 11/16 03:41 Order name: Magnesium; Complete Time: 04:34 cp 11/16 03:41 Order name: NT PRO-BNP; Complete Time: 04:34 cp 11/16 03:41 Order name: PT-INR; Complete Time: 04:21 cp 11/16 03:41 Order name: Troponin HS; Complete Time: 04:34 cp 11/16 03:41 Order name: Lipase; Complete Time: 04:34 cp 11/16 05:12 Order name: Troponin High Sensitivity; Complete Time: 06:11 sin 11/16 03:41 Order name: XRAY Chest (1 view) cp 11/16 04:35 Order name: CT Abd/Pelvis - IV Contrast Only cp 11/16 03:41 Order name: EKG; Complete Time: 03:42 cp 11/16 03:41 Order name: Cardiac monitoring; Complete Time: 04:00 cp 11/16 03:41 Order name: EKG - Nurse/Tech; Complete Time: 04:00 cp 11/16 03:41 Order name: IV Saline Lock; Complete Time: 04:00 cp 11/16 03:41 Order name: Labs collected and sent; Complete Time: 04: cp 11/16 03:41 Order name: O2 Per Protocol; Complete Time: : 11/16 03:41 Order name: O2 Sat Monitoring; Complete Time: 04:00 11/16 05:12 Order name: EKG - Nurse/Tech; Complete Time: 05:36 sin EC:03 Rate is 88 beats/min. Rhythm is regular. SC interval is prolonged at 220 msec. QRS cp interval is normal. QT interval is normal. T waves are Inverted in leads I, aVL, V5, V6. Interpreted by me. Reviewed by me. 05:35 Rate is 77 beats/min. Rhythm is regular. QRS [place] is Normal. SC interval is normal. QRS sin interval is normal. QT interval is normal. No Q waves. T waves are Normal. No ST changes noted. Clinical impression: Abnormal EKG without significant change, LVH, and No evidence of ischemia. Interpreted by me. Reviewed by me. Administered Medications: 04:05 Drug: Pantoprazole IVP 40 mg IVP once Route: IVP; Site: right antecubital; vc1 04:37 Follow up: Response: No adverse reaction vc1 04:05 Drug: metoCLOPramide IVP 10 mg IVP once; over 1 to 2 minutes Route: IVP; Site: right vc1 antecubital; 04:37 Follow up: Response: No adverse reaction vc1 04:05 Drug: morphine IVP or IV 6 mg IVP once over 4 mins Route: IVP; Infused Over: 4 mins; vc1 Site: right antecubital; 04:37 Follow up: Response: No adverse reaction vc1 04:05 Drug: NS 0.9% IV 1000 ml IV at 1000 ml once; to be given as a bolus over 60 minutes vc1 Route: IV; Rate: 1000 ml; Site: right antecubital; 05:00 Follow up: IV Status: Completed infusion; IV Intake: 1000ml vc1 05:50 Drug: HYDROmorphone IVP 1 mg IVP once Route: IVP; Site: right antecubital; al5 06:19 Follow up: Response: No adverse reaction; Marked relief of symptoms; Pain is decreased vc1 05:50 Drug: Ondansetron IVP 8 mg IVP once; over 2 minutes Route: IVP; Site: right antecubital;al5 06:19 Follow up: Response: No adverse reaction; Marked relief of symptoms vc1 05:51 Drug: GI Cocktail without - (Maalox PO 30 ml, Lidocaine Mucous Membrane 2 % 15 al5 ml) PO once Route: PO; 06:19 Follow up: Response: Marked relief of symptoms; Pain is decreased vc1 Disposition: 04:55 Co-signature as Attending Physician, Talon Whitt MD I agree with the assessment and [facility] plan of care. Disposition Summary: 11/16/24 06:11 Discharge Ordered Notes: Location: Home sin Problem: new sin Symptoms: have improved sin Condition: Stable sin Diagnosis - Epigastric pain sin - Nausea with vomiting, unspecified sin Followup: cp - With: Private Physician - When: 2 - 3 days - Reason: Recheck today's complaints Discharge Instructions: - Hypertension, Adult sin - Hypertension, Adult, [id number] sin - Discharge Summary Sheet cp - Abdominal Pain, Adult cp - Gastroesophageal Reflux Disease, Adult cp Forms: - Medication Reconciliation Form sin - Antibiotic Education sin - Prescription Opioid Use sin - Patient Portal Instructions [facility] - Leadership Thank You Letter [facility] Prescriptions: - Carafate 1 gram Oral Tablet - take 1 tablet ORAL route 4 times per day take on an empty stomach, beginning on sin waking and last dose at bedtime; 100 tablet; Refills: 0, Product Selection Permitted - Protonix 40 mg Oral Tablet - take 1 tablet ORAL route once daily; 30 tablet; Refills: 0, Product Selection cp Permitted - Reglan 10 mg Oral Tablet - take 1 tablet ORAL route every 6 hours take 30 minutes before meals and at bedtime; 20 tablet; Refills: 0, Product Selection Permitted NIH Stroke Scale - NIH Stroke Score Date: 11/16/2024 Time: 05:36 Total Score = 0 10. Dysarthria (speech clarity - read or repeat words) - 0(Normal) 11. Extinction and Inattention (visual/tactile/auditory/spatial/personal) - 0(No abnormality) 1a. Level of Consciousness (LOC) - 0(Alert) 1b. Level of Consciousness (LOC) (Month \T\ Age) - 0(Both) 1c. LOC Commands (Open \T\ Closes Eyes/[place] Clerk) - 0(Both) 2. Best Gaze (Lateral Gaze Paresis) - 0(Normal) 3. Visual Field Loss - 0(No visual loss) 4. Facial Palsy - 0(Normal) 5a. Left Arm: Motor (10-second hold) - 0(No drift) 5b. Right Arm: Motor (10-second hold) - 0(No drift) 6a. Left Leg: Motor (5-second hold - always test supine) - 0(No drift) 6b. Right Leg: Motor (5-second hold - always test supine) - 0(No drift) 7. Limb Ataxia (finger/nose \T\ heel/bowman - test with eyes open) - 0(Absent) 8. Sensory Loss (pinprick arms/legs/face) - 0(Normal) 9. Best Language: Aphasia (description/naming/reading) - 0(No aphasia) Initials: sin Signatures: Dispatcher [employer] EDMS Talon Whitt MD MD cha Page, Corey, CLAY PA Cristin Kumar, RN RN vc1 Lisa Hare RN RN al5 Judi Robles RN RN br2 Corrections: (The following items were deleted from the chart) 04:36 04:36 Abdomen Pelvis W Con+CT.RAD.BRZ ordered. EDMS EDMS 04:39 04:00 Allergies: Morphine; br2 br2
--- NOTE | 2024-11-16 06:12 | ER ---
Nurse's Notes [facility] Name: Terry Akins Sr Age: 44 yrs Sex: Male : 1980 Arrival Date: 11/16/2024 Time: 03:28 Bed 6 Private MD: Diagnosis: Epigastric pain;Nausea with vomiting, unspecified Presentation: 11/16 03:30 Chief complaint: Patient states: PT C/O EPIGASTRIC PAIN BURNING FOR THE LAST 2 WEEKS. br2 WORSE TONIGHT UNABLE TO SLEEP, PAIN IS CONSTANT...VOMITING. Coronavirus screen: Client denies travel out of the [place] in the last 14 days. Ebola Screen: Patient denies travel to an Ebola-affected area in the 21 days before illness onset. Initial Sepsis Screen: Does the patient meet any 2 criteria? HR > 90 bpm. Does the patient have a suspected source of infection? No. Patient's initial sepsis screen is negative. Risk Assessment: Do you want to hurt yourself or someone else? Patient reports no desire to harm self or others. Onset of symptoms was November 03, 2023. 03:30 Method Of Arrival: Ambulatory br2 03:30 Acuity: SARITHA 3 br2 Triage Assessment: 04:00 General: Appears uncomfortable, Behavior is anxious. Pain: Complains of pain in xiphoid br2 area Pain currently is 10 out of 10 on a pain scale. GI: Abdomen is round obese, Reports epigastric pain, indigestion, nausea, vomiting. 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 - Infectious Disease History:: Denies. - Social history:: Smoking status: Reported history of juuling and/or vaping. Patient/guardian denies using alcohol, street drugs. Screenin:02 [facility] ED Fall Risk Assessment (Adult) History of falling in the last 3 months, br2 including since admission No falls in past 3 months (0 pts) Confusion or Disorientation No (0 pts) Intoxicated or Sedated No (0 pts) Impaired Gait No (0 pts) Mobility Assist Device Used No (0 pt) Altered Elimination No (0 pt) Score/Fall Risk Level 0 - 2 = Low Risk Oriented to surroundings. Abuse screen: Denies threats or abuse. Denies injuries from another. Nutritional screening: No deficits noted. Tuberculosis screening: No symptoms or risk factors identified. Assessment: 04:34 Reassessment: Patient appears in no apparent distress at this time. No changes from vc1 previously documented assessment. Patient and/or family updated on plan of care and expected duration. Pain level reassessed. Patient is alert, oriented x 3, equal unlabored respirations, skin warm/dry/pink. 05:42 Reassessment: Patient appears in no apparent distress at this time. No changes from vc1 previously documented assessment. Patient and/or family updated on plan of care and expected duration. Pain level reassessed. Patient is alert, oriented x 3, equal unlabored respirations, skin warm/dry/pink. Vital Signs: 03:30 BP 160 / 98; Pulse 103; Resp 17; Temp 97.3(TE); Pulse Ox 100% on R/A; Weight 158.76 kg; br2 Height 6 ft. 3 in. ; Pain 10/10; 04:00 BP 128 / 80; Pulse 88; Resp 12; Pulse Ox 99% ; vc1 04:45 BP 130 / 88; Pulse 78; Resp 15; Pulse Ox 94% ; vc1 05:30 BP 114 / 84; Pulse 76; Resp 14; Pulse Ox 99% ; vc1 03:30 Body Mass Index 43.75 (158.76 kg, 190.5 cm) br2 03:30 Pain Scale: Adult br2 NIH Stroke Scale Scores: 05:36 NIHSS Score: 0 sin ED Course: 03:29 Patient arrived in ED. [id number] 03:32 Talon Lakhani PA is PHCP. cp 03:32 Talon Whitt MD is Attending Physician. cp 03:52 Cristin Storm, BRYN is Primary Nurse. vc1 04:00 Triage completed. br2 04:00 Arm band placed on right wrist. br2 04:01 Inserted saline lock: 20 gauge in right antecubital area, using aseptic technique. br2 Blood collected. Flushed with 10 mL NS. 04:02 Patient has correct armband on for positive identification. Bed in low position. Call br2 light in reach. Side rails up X 1. Provided Education on: PLAN OF CARE. 04:03 Basic Metabolic Panel Sent. br2 04:03 CBC with Diff Sent. br2 04:03 LFT's Sent. br2 04:03 Magnesium Sent. br2 04:03 NT PRO-BNP Sent. br2 04:03 PT-INR Sent. br2 04:03 Troponin HS Sent. br2 04:27 XRAY Chest (1 view) In Process Unspecified. EDMS 05:08 CT Abd/Pelvis - IV Contrast Only In Process Unspecified. EDMS 06:18 No provider procedures requiring assistance completed. IV discontinued, intact, vc1 bleeding controlled, No redness/swelling at site. Pressure dressing applied. Administered Medications: 04:05 Drug: Pantoprazole IVP 40 mg IVP once Route: IVP; Site: right antecubital; vc1 04:37 Follow up: Response: No adverse reaction vc1 04:05 Drug: metoCLOPramide IVP 10 mg IVP once; over 1 to 2 minutes Route: IVP; Site: right vc1 antecubital; 04:37 Follow up: Response: No adverse reaction vc1 04:05 Drug: morphine IVP or IV 6 mg IVP once over 4 mins Route: IVP; Infused Over: 4 mins; vc1 Site: right antecubital; 04:37 Follow up: Response: No adverse reaction vc1 04:05 Drug: NS 0.9% IV 1000 ml IV at 1000 ml once; to be given as a bolus over 60 minutes vc1 Route: IV; Rate: 1000 ml; Site: right antecubital; 05:00 Follow up: IV Status: Completed infusion; IV Intake: 1000ml vc1 05:50 Drug: HYDROmorphone IVP 1 mg IVP once Route: IVP; Site: right antecubital; al5 06:19 Follow up: Response: No adverse reaction; Marked relief of symptoms; Pain is decreased vc1 05:50 Drug: Ondansetron IVP 8 mg IVP once; over 2 minutes Route: IVP; Site: right antecubital;al5 06:19 Follow up: Response: No adverse reaction; Marked relief of symptoms vc1 05:51 Drug: GI Cocktail without - (Maalox PO 30 ml, Lidocaine Mucous Membrane 2 % 15 al5 ml) PO once Route: PO; 06:19 Follow up: Response: Marked relief of symptoms; Pain is decreased vc1 Medication: 04:34 VIS not applicable for this client. vc1 Intake: 05:00 IV: 1000ml; Total: 1000ml. vc1 Outcome: 06:11 Discharge ordered by . sin 06:18 Discharged to home ambulatory, vc1 06:18 Condition: stable 06:18 Discharge instructions given to patient, Instructed on discharge instructions, follow up and referral plans. medication usage, Demonstrated understanding of instructions, follow-up care, medications, Prescriptions given X 3, 06:18 Patient left the ED. vc1 NIH Stroke Scale - NIH Stroke Score Date: 11/16/2024 Time: 05:36 Total Score = 0 10. Dysarthria (speech clarity - read or repeat words) - 0(Normal) 11. Extinction and Inattention (visual/tactile/auditory/spatial/personal) - 0(No abnormality) 1a. Level of Consciousness (LOC) - 0(Alert) 1b. Level of Consciousness (LOC) (Month \T\ Age) - 0(Both) 1c. LOC Commands (Open \T\ Closes Eyes/Press Machine Feeder) - 0(Both) 2. Best Gaze (Lateral Gaze Paresis) - 0(Normal) 3. Visual Field Loss - 0(No visual loss) 4. Facial Palsy - 0(Normal) 5a. Left Arm: Motor (10-second hold) - 0(No drift) 5b. Right Arm: Motor (10-second hold) - 0(No drift) 6a. Left Leg: Motor (5-second hold - always test supine) - 0(No drift) 6b. Right Leg: Motor (5-second hold - always test supine) - 0(No drift) 7. Limb Ataxia (finger/nose \T\ heel/bowman - test with eyes open) - 0(Absent) 8. Sensory Loss (pinprick arms/legs/face) - 0(Normal) 9. Best Language: Aphasia (description/naming/reading) - 0(No aphasia) Initials: sin Signatures: Dispatcher [employer] EDMS Talon Whitt MD MD cha Page, Corey, PA PA cp Jeffries, Jennifer [id number] Cristin Storm RN RN vc1 Lisa Hare RN RN al5 Judi Robles RN RN br2 Corrections: (The following items were deleted from the chart) 04:39 04:00 Allergies: Morphine; br2 br2
[2024-11-16 06:41] VITALS: TEMP 97.3
[2024-11-16 06:45] VITALS: BP 114/84; O2SAT 99
--- NOTE | 2024-11-17 10:57 | EKG ---
Test Date: 2024-11-16 Test Time: 05:34:23 Medication Aide: ESTELA MEASUREMENT RESULTS: Intervals: Rate: 77 WV: 242 QRSD: 90 QT: 386 QTc: 436 [place]: P: 70 [place]: 242 QRS: 4 T: 173 INTERPRETIVE STATEMENTS: Sinus rhythm with 1st degree AV block Left ventricular hypertrophy with repolarization abnormality Cannot rule out Septal infarct, age undetermined Abnormal ECG Compared to ECG 11/16/2024 03:57:46 No significant changes Electronically Signed On 11-17-24 10:55:21 CDT by Garret Gutierrez
--- NOTE | 2024-11-17 10:57 | EKG ---
Test Date: 2024-11-16 Test Time: 03:57:46 [place]utter: ESTELA MEASUREMENT RESULTS: Intervals: Rate: 88 [place]: 220 QRSD: 90 QT: 360 QTc: 435 [place]: P: 71 [place]: 220 QRS: 1 T: 155 INTERPRETIVE STATEMENTS: Sinus rhythm with 1st degree AV block Left ventricular hypertrophy with repolarization abnormality Septal infarct, age undetermined Abnormal ECG Compared to ECG 03/04/2024 11:26:47 Myocardial infarct finding now present Electronically Signed On 11-17-24 10:55:22 CDT by Garret Gutierrez
== END 2024-11-16 06:18 | disposition home or self-care (01) ==
LOC: ER 03:28
DX: R10.13 Epigastric pain (principal); R11.2 Nausea with vomiting, unspecified; Z98.2 Presence of cerebrospinal fluid drainage device
CPT/HCPCS: 96361; 93005 ×2; 85025; 80048; 36415; 83735; 85610; 80076; 84484 ×2; 83690; 83880; 74177; 71045; 96375; 96374; 99284; Q9967; J2765; J2470; J2270; J1171; J2405; J7030

== ENCOUNTER 2024-12-10 12:06 | Emergency (ER) | payer OTHER ==
[2024-12-10 13:22] LABS: Absolute Eosinophils 0.4 K/uL (0-0.5); Absolute Lymphocytes (CBC) 1.4 K/uL (0.7-4.9); Absolute Monocytes 0.6 K/uL (0.1-1.3); Absolute Neutrophil 7.4 K/uL (1.8-8.0); Basophils % 0.4 % (0-1.3); Eosinophils % 3.6 % (0-4.4); Hematocrit 44.3 % (39.6-49.0); Hemoglobin 15.2 g/dL (13.6-17.9); Lymphocytes % 13.9 % (15.3-44.8); MCH 28.7 pg (27.0-35.0); MCHC 34.2 g/dL (32.0-36.0); MCV 83.8 fL (80-100); MPV 9.1 fL (7.6-11.3); Monocytes % 6.5 % (3.3-12.3); Neutrophils % 75.6 % (41.7-73.7); Nucleated Red Blood Cells % 0.1 % (0-0); Platelets 235 thou/uL (152-406); RBC Red Blood Cell Count 5.29 M/uL (4.33-5.43); Red Cell Distribution Width 14.6 % (12.1-15.2)
[2024-12-10 13:28] LABS: Albumin 3.8 g/dL (3.4-5.0); Albumin/Globulin Ratio 0.9 (1.1-1.8); Anion Gap 11.8 mEq/L (5.0-15.0); Bilirubin Total 1.1 mg/dL (0.2-1.0); Globulin 4.1 g/dL (2.3-3.5); Potassium 3.8 mEq/L (3.5-5.1); Protein, Total 7.9 g/dL (6.4-8.2)
--- NOTE | 2024-12-10 14:15 | RAD REPORT ---
EXAM: CT brain without contrast HISTORY: ABD PAIN COMPARISON: 10/12/2021 TECHNIQUE: Multiple contiguous axial images were obtained and a CT of the brain without contrast. Sag ittal and coronal reformats were performed. One or more of the following dose reduction techniques were used: Automated exposure control, adjust ment of the mA and/or kV according to patient size, and/or iterative reconstruction. FINDINGS: No evidence of hydrocephalus, intracranial hemorrhage, or extra-axial fluid collection. The brain is normal in morphology. Right frontal ventriculostomy tube, unchanged in position. No michael dence of midline shift or areas of brain edema. The calvarium is intact. Postsurgical changes are seen left mastoid with moderate left mastoid effusi on. EXAM: CT of the cervical spine without contrast HISTORY: Neck pain, injury ABD PAIN TECHNIQUE: Multiple contiguous axial images were obtained in a CT of the cervical spine without contr ast. Sagittal and coronal reformats were performed. FINDINGS: The vertebral bodies demonstrate normal height and alignment. No evidence of acute fracture or subluxation.. Mild lower cervical degenerative changes. No prevertebral soft tissue swelling is seen. The posterior facets are well aligned. Normal alignment of the skull base with the cervical spine is seen. The lung apices are unremarkable. COMBINED IMPRESSION: No evidence of acute intracranial abnormality. Left mastoid effusion with postsurgical defect noted. Suggest correlation for chronic mastoiditis. No evidence of acute osseous abnormality of the cervical spine.
--- NOTE | 2024-12-10 14:18 | RAD REPORT ---
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 A xial, sagittal and coronal reconstructions were obtained. One or more of the following dose reduction techniques were used: Automated exposure control, adjustment of the mA and/or kV according to patient size, and/or iterative reconstruction. Unless otherwise specified, incidental findings do not require dedicated imaging follow-up. Examination is limited by the lack of intravenous contrast material. COMPARISON: 04/05/2021, 11/16/2024 FINDINGS: LUNGS: No evidence of airspace or interstitial process. No nodules. PLEURA: No pleural effusion. No pneumothorax. MEDIASTINUM AND LYMPH NODES: No mediastinal mass or fluid collection. Normal size mediastinal, hilar, and axillary lymph nodes. OSSEOUS STRUCTURES AND CHEST WALL: Intact. LIVER: Normal in size and contour. No focal lesion or biliary dilatation. Grossly unremarkable gallbl adder. PANCREAS: No mass, ductal dilation, or maury-pancreatic fluid. SPLEEN: Normal size. No focal lesion. ADRENALS: Normal; no mass. KIDNEYS: Normal size and contour. No hydronephrosis. URINARY BLADDER: Normal contour. GASTROINTESTINAL TRACT: No bowel obstruction, free air, significant free fluid or abscess. APPENDIX: Appendix not visualized, but no inflammatory changes in region of appendix. LYMPH NODES: No lymphadenopathy. MUSCULOSKELETAL: No acute or suspicious osseous abnormality. OTHER: Ventriculostomy tube noted anterior upper abdomen. IMPRESSION: No acute abnormalities seen in the chest, abdomen or pelvis.
[2024-12-10] MEDS ORDERED: HYDROMORPHONE HCL 1 MG/ML INJ ONE ×2 (14:45→15:30)
[2024-12-10] MEDS ORDERED: MAGNES/ALUMIN/SIMET 30ML UCUP ONE (14:45)
[2024-12-10] MEDS ORDERED: ONDANSETRON 4 MG/2 ML VIAL ONE ×2 (14:45→14:47)
[2024-12-10] MEDS ORDERED: PROMETHAZINE INJ 25 MG/ML AMP ONE (14:46)
[2024-12-10] MEDS ORDERED: NA CHLORIDE 0.9% 1,000 ML ONE (14:46)
[2024-12-10] MEDS ORDERED: PANTOPRAZOLE 40 MG INJ ONE (14:46)
[2024-12-10] MEDS ORDERED: FAMOTIDINE 20 MG/2 ML VIAL IV ONE (14:46)
[2024-12-10] MEDS ORDERED: LIDOCAINE VISCOUS 2% 10ML ORAL SOLN ONE (14:46)
--- NOTE | 2024-12-10 15:49 | EDPHYS ---
Physician Documentation [facility] Name: Terry Akins Sr Age: 44 yrs Sex: Male : 1980 Arrival Date: 12/10/2024 Time: 12:06 Bed 13 Private MD: ED Physician Talon Whitt HPI: 12/10 14:35 This 44 yrs old Black Male presents to ER via Ambulatory with complaints of Vomiting. sin 14:35 The patient presents to the emergency department with nausea, vomiting, abdominal pain, sin of the epigastric area, right upper quadrant and left upper quadrant. Onset: The symptoms/episode began/occurred 1 day(s) ago. Possible causes: bad food exposure. The symptoms are aggravated by. Associated signs and symptoms: Pertinent positives: abdominal pain, nausea, vomiting. Severity of symptoms: At their worst the symptoms were moderate in the emergency department the symptoms are unchanged. The patient has experienced similar episodes in the past, several times. 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 - Infectious Disease History:: Denies. - Social history:: Smoking status: Patient denies any tobacco usage or history of. ROS: 14:36 Constitutional: Negative for fever, chills, and weight loss, Eyes: Negative for injury, sin pain, redness, and discharge, ENT: Negative for injury, pain, and discharge, Neck: Negative for injury, pain, and swelling, Cardiovascular: Negative for chest pain, palpitations, and edema, Respiratory: Negative for shortness of breath, cough, wheezing, and pleuritic chest pain, Back: Negative for injury and pain, : Negative for injury, bleeding, discharge, and swelling, MS/Extremity: Negative for injury and deformity, Skin: Negative for injury, rash, and discoloration, Neuro: Negative for headache, weakness, numbness, tingling, and seizure, Psych: Negative for depression, anxiety, suicide ideation, homicidal ideation, and hallucinations, Allergy/Immunology: Negative for hives, rash, and allergies, Endocrine: Negative for neck swelling, polydipsia, polyuria, polyphagia, and marked weight changes, Hematologic/Lymphatic: Negative for swollen nodes, abnormal bleeding, and unusual bruising, 14:36 Abdomen/GI: Positive for abdominal pain, nausea and vomiting, nausea, vomiting, abdominal cramps, Exam: 14:36 Constitutional: This is a well developed, well nourished patient who is awake, alert, sin and in no acute distress. Head/Face: Normocephalic, atraumatic. Eyes: Pupils equal round and reactive to light, extra-ocular motions intact. Lids and lashes normal. Conjunctiva and sclera are non-icteric and not injected. Cornea within normal limits. Periorbital areas with no swelling, redness, or edema. ENT: Nares patent. No nasal discharge, no septal abnormalities noted. Tympanic membranes are normal and external auditory canals are clear. Oropharynx with no redness, swelling, or masses, exudates, or evidence of obstruction, uvula midline. Mucous membranes moist. Neck: Trachea midline, no thyromegaly or masses palpated, and no cervical lymphadenopathy. Supple, full range of motion without nuchal rigidity, or vertebral point tenderness. No Meningismus. Chest/axilla: Normal chest wall appearance and motion. Nontender with no deformity. No lesions are appreciated. Cardiovascular: Regular rate and rhythm with a normal S1 and S2. No gallops, murmurs, or rubs. Normal PMI, no JVD. No pulse deficits. Respiratory: Lungs have equal breath sounds bilaterally, clear to auscultation and percussion. No rales, rhonchi or wheezes noted. No increased work of breathing, no retractions or nasal flaring. Back: No spinal tenderness. No costovertebral tenderness. Full range of motion. Male : Normal genitalia with no discharge or lesions. Skin: Warm, dry with normal turgor. Normal color with no rashes, no lesions, and no evidence of cellulitis. MS/ Extremity: Pulses equal, no cyanosis. Neurovascular intact. Full, normal range of motion., bilateral aka Neuro: Awake and alert, GCS 15, oriented to person, place, time, and situation. Cranial nerves II-XII grossly intact. Motor strength 5/5 in all extremities. Sensory grossly intact. Cerebellar exam normal. Normal gait. Psych: Awake, alert, with orientation to person, place and time. Behavior, mood, and affect are within normal limits. 14:36 ECG was reviewed by the Attending Physician. 14:36 Abdomen/GI: Inspection: abdomen appears normal, Bowel sounds: normal, Palpation: moderate abdominal tenderness, in the epigastric area, right upper quadrant and left upper quadrant, Liver: no appreciated palpable abnormalities, Hernia: not appreciated, 15:17 ECG was reviewed by the Attending Physician. [facility] Vital Signs: 12:35 BP 147 / 76; Pulse 101; Resp 17; Temp 98.3; Pulse Ox 100% ; Weight 163.29 kg; Height 6 jl7 ft. 3 in. ; Pain 10/10; 15:00 BP 123 / 68; Pulse 94; Resp 17; Pulse Ox 99% ; me1 15:15 Pain 4/10; me1 15:17 Pain 4/10; me1 15:51 BP 139 / 83; Pulse 77; Resp 18; Temp 98.4; Pulse Ox 94% on R/A; me1 12:35 Body Mass Index 45.00 (163.29 kg, 190.5 cm) jl7 12:35 Pain Scale: Adult jl7 15:15 Pain Scale: Adult me1 15:17 Pain Scale: Adult me1 MDM: 12:09 Medical Screening Exam initiated [facility] 12/10 12:10 Order name: CBC with Diff; Complete Time: 13:45 [facility] 12/10 12:10 Order name: CMP; Complete Time: 13:45 [facility] 12/10 12:10 Order name: Lipase; Complete Time: 13:45 [facility] 12/10 13:54 Order name: Chest Abd Pelvis Wo Con; Complete Time: 14:30 EDMS 12/10 13:55 Order name: Head C Spine Mpr Wo Con; Complete Time: 14:30 EDMS 12/10 12:10 Order name: EKG; Complete Time: 12:11 [facility] 12/10 12:10 Order name: IV Saline Lock; Complete Time: 13:02 [facility] 12/10 12:10 Order name: Labs collected and sent; Complete Time: 13:02 [facility] 12/10 12:10 Order name: EKG - Nurse/Tech; Complete Time: 15:00 [facility] EC:17 Rate is 88 beats/min. Rhythm is regular. QRS [place] is Normal. WA interval is prolonged [facility] at 232 msec. QRS interval is normal. QT interval is normal. No Q waves. T waves are Normal. No ST changes noted. Clinical impression: NSR w/ Non-specific ST/T Changes and No evidence of ischemia. Interpreted by me. Reviewed by me. Administered Medications: 14:50 Drug: Promethazine IM 25 mg IM once Route: IM; Site: right deltoid; db 15:17 Follow up: Response: No adverse reaction; Nausea is decreased me1 14:58 Drug: Pantoprazole IVP 40 mg IVP once Route: IVP; Site: left antecubital; me1 15:17 Follow up: Response: No adverse reaction me1 14:59 Drug: HYDROmorphone IVP 1 mg IVP once Route: IVP; Site: left antecubital; me1 15:17 Follow up: Pain 4/10 Adult; Response: No adverse reaction; Pain is decreased me1 14:59 Drug: Ondansetron IVP 8 mg IVP once; over 2 minutes Route: IVP; Site: left antecubital; me1 15:16 Follow up: Response: No adverse reaction; Nausea is decreased me1 14:59 Drug: GI Cocktail without - (Maalox PO 30 ml, Lidocaine Mucous Membrane 2 % 15 me1 ml) PO once Route: PO; 15:15 Follow up: Pain 4/10 Adult; Response: No adverse reaction; Pain is decreased me1 15:00 Drug: Famotidine IVP 20 mg IVP once; dilute with 10 mL 0.9% NaCl; give over 2 minutes me1 Route: IVP; Site: left antecubital; 15:18 Follow up: Response: No adverse reaction me1 15:00 Drug: NS 0.9% IV 1000 ml IV at 1 bolus Per protocol; to be given as a bolus over 60 me1 minutes Route: IV; Rate: 1 bolus; Site: left antecubital; 16:04 Follow up: Response: No adverse reaction; IV Status: Completed infusion; IV Intake: me1 1000ml 15:00 Drug: Ondansetron IVP 8 mg IVP once; over 2 minutes Route: IVP; Site: left antecubital; me1 15:16 Follow up: Response: No adverse reaction; Nausea is decreased me1 15:32 Drug: HYDROmorphone IVP 1 mg IVP once; if needed Route: IVP; Site: left antecubital; me1 15:48 Follow up: Response: No adverse reaction; Pain is decreased me1 Disposition Summary: 12/10/24 15:48 Discharge Ordered Notes: Location: Home [facility] Problem: new sin Symptoms: have improved sin Condition: Stable sin Diagnosis - Vomiting sin - Epigastric abdominal tenderness sin - Acute gastritis sin Followup: sin - With: Private Physician - When: 2 - 3 days - Reason: Recheck today's complaints, Continuance of care, Re-evaluation by your physician Followup: sin - With: Rehana Lieberman MD - When: 2 - 3 days - Reason: Recheck today's complaints, Continuance of care, Re-evaluation by your physician Discharge Instructions: - Discharge Summary Sheet sin - Abdominal Pain, Adult sin - Nausea and Vomiting, Adult sin - Abdominal Pain, Adult, [id number] sin - Vomiting, Adult sin Forms: - Medication Reconciliation Form sin - Antibiotic Education sin - Prescription Opioid Use sin - Patient Portal Instructions [facility] - Leadership Thank You Letter [facility] Prescriptions: - Protonix 40 mg Oral Tablet - take 1 tablet ORAL route once daily; 30 tablet; Refills: 0, Product Selection [facility] Permitted - promethazine 25 mg Oral tablet - take 1 tablet ORAL route every 6 hours As needed PRN INTRACTABLE N/V; 20 sin tablet; Refills: 0, Product Selection Permitted - dicyclomine 20 mg Oral tablet - take 1 tablet ORAL route 4 times per day; 28 tablet; Refills: 0, Product sin Selection Permitted - ondansetron 8 mg Oral Tablet,disintegrating - take 1 tablet ORAL route every 8 hours PRN; 20 tablet; Refills: 0, Product sin Selection Permitted Signatures: Dispatcher [employer] Talon Vargas MD MD cha Leal, Jahala RN RN jl7 Jaky Lara, BRYN RN db Cinthia Lou, BRYN RN me1 Corrections: (The following items were deleted from the chart) 13:55 12:11 Abdomen Pelvis W Con+[id number].BRZ ordered. TAYLER LESTER
--- NOTE | 2024-12-10 15:49 | ER ---
Nurse's Notes [facility] Name: Terry Akins Sr Age: 44 yrs Sex: Male : 1980 Arrival Date: 12/10/2024 Time: 12:06 Bed 13 Private MD: Diagnosis: Vomiting;Epigastric abdominal tenderness;Acute gastritis Presentation: 12/10 12:35 Chief complaint: Patient states: N/V since yesterday now having bright red blood in the me1 yellow vomit. 12:36 Coronavirus screen: Client presents with at least one sign or symptom that may indicate jl7 coronavirus-19. Ebola Screen: No symptoms or risks identified at this time. Initial Sepsis Screen: Does the patient meet any 2 criteria? No. Patient's initial sepsis screen is negative. Does the patient have a suspected source of infection? No. Patient's initial sepsis screen is negative. Risk Assessment: Do you want to hurt yourself or someone else? Patient reports no desire to harm self or others. Onset of symptoms was December 09, 2024. 12:36 Method Of Arrival: Ambulatory [facility] 12:36 Acuity: SARITHA 3 jl7 Triage Assessment: 12:46 General: Appears in no apparent distress. uncomfortable, ill, Behavior is calm, jl7 cooperative. Pain: Complains of pain in abdomen diffusely Pain currently is 10 out of 10 on a pain scale. GI: Reports nausea, vomiting. 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 - Infectious Disease History:: Denies. - Social history:: Smoking status: Patient denies any tobacco usage or history of. Screenin:12 [facility] ED Fall Risk Assessment (Adult) History of falling in the last 3 months, me1 including since admission No falls in past 3 months (0 pts) Confusion or Disorientation No (0 pts) Intoxicated or Sedated No (0 pts) Impaired Gait No (0 pts) Mobility Assist Device Used No (0 pt) Altered Elimination No (0 pt) Score/Fall Risk Level 0 - 2 = Low Risk Maintained a safe environment, Provided non-skid footwear, Hourly rounding (assess needs \T\ fall precautionary measures) done. Abuse screen: Denies threats or abuse. Nutritional screening: No deficits noted. Tuberculosis screening: No symptoms or risk factors identified. Assessment: 12:45 General: Appears uncomfortable, ill, obese, well groomed, well developed, Behavior is me1 calm, cooperative, appropriate for age, Reports N/V since yesterday now having bright red blood in the yellow vomit. Pain: Complains of pain in left upper quadrant and right upper quadrant and epigastric area and abdomen and abdomen diffusely Pain does not radiate. Pain currently is 10 out of 10 on a pain scale. Quality of pain is described as crampy, Pain began suddenly, Is continuous. 15:12 Neuro: Level of Consciousness is awake, alert, obeys commands, Oriented to person, me1 place, time, situation, Appropriate for age. Cardiovascular: Patient's skin is warm and dry. Respiratory: Airway is patent Respiratory effort is even, unlabored, Respiratory pattern is regular, symmetrical. GI: Abdomen is round Bowel sounds present X 4 quads. Reports lower abdominal pain, upper abdominal pain, nausea, vomiting, since 04:00. : No signs and/or symptoms were reported regarding the genitourinary system. EENT: No signs and/or symptoms were reported regarding the EENT system. Derm: Skin is intact, is healthy with good turgor, Skin is pink, warm \T\ dry. Musculoskeletal: No signs and/or symptoms reported regarding the musculoskeletal system. Vital Signs: 12:35 BP 147 / 76; Pulse 101; Resp 17; Temp 98.3; Pulse Ox 100% ; Weight 163.29 kg; Height 6 jl7 ft. 3 in. ; Pain 10/10; 15:00 BP 123 / 68; Pulse 94; Resp 17; Pulse Ox 99% ; me1 15:15 Pain 4/10; me1 15:17 Pain 4/10; me1 15:51 BP 139 / 83; Pulse 77; Resp 18; Temp 98.4; Pulse Ox 94% on R/A; me1 12:35 Body Mass Index 45.00 (163.29 kg, 190.5 cm) jl7 12:35 Pain Scale: Adult jl7 15:15 Pain Scale: Adult me1 15:17 Pain Scale: Adult me1 ED Course: 12:09 Patient arrived in ED. im 12:09 Talon Whitt MD is Attending Physician. sin 12:39 Triage completed. jl7 12:46 Arm band placed on right wrist. jl7 12:59 Inserted saline lock: 22 gauge in left antecubital area, using aseptic technique. Blood nh2 collected. Flushed with 10 mL NS. 13:02 CBC with Diff Sent. nh2 13:02 CMP Sent. nh2 13:02 Lipase Sent. nh2 13:03 Urinalysis w/ reflexes Sent. nh2 14:06 Chest Abd Pelvis Wo Con In Process Unspecified. EDMS 14:06 Head C Spine Mpr Wo Con In Process Unspecified. EDMS 14:42 Jaky Lara, RN is Primary Nurse. db 14:44 Cinthia Lou, RN is Primary Nurse. me1 14:56 EKG done, by ED staff, reviewed by Talon Whitt MD. nh2 15:12 Patient has correct armband on for positive identification. Bed in low position. Call me1 light in reach. Side rails up X2. Provided Education on: POC. Verbalized understanding. Client placed on continuous cardiac and pulse oximetry monitoring. NIBP monitoring applied. library monitor on. Pulse ox on. NIBP on. 15:12 No provider procedures requiring assistance completed. me1 15:48 Rehana Lieberman MD is Referral Physician. sin 16:03 IV discontinued, intact, bleeding controlled, No redness/swelling at site. Pressure me1 dressing applied. Administered Medications: 14:50 Drug: Promethazine IM 25 mg IM once Route: IM; Site: right deltoid; db 15:17 Follow up: Response: No adverse reaction; Nausea is decreased me1 14:58 Drug: Pantoprazole IVP 40 mg IVP once Route: IVP; Site: left antecubital; me1 15:17 Follow up: Response: No adverse reaction me1 14:59 Drug: HYDROmorphone IVP 1 mg IVP once Route: IVP; Site: left antecubital; me1 15:17 Follow up: Pain 4/10 Adult; Response: No adverse reaction; Pain is decreased me1 14:59 Drug: Ondansetron IVP 8 mg IVP once; over 2 minutes Route: IVP; Site: left antecubital; me1 15:16 Follow up: Response: No adverse reaction; Nausea is decreased me1 14:59 Drug: GI Cocktail without - (Maalox PO 30 ml, Lidocaine Mucous Membrane 2 % 15 me1 ml) PO once Route: PO; 15:15 Follow up: Pain 4/10 Adult; Response: No adverse reaction; Pain is decreased me1 15:00 Drug: Famotidine IVP 20 mg IVP once; dilute with 10 mL 0.9% NaCl; give over 2 minutes me1 Route: IVP; Site: left antecubital; 15:18 Follow up: Response: No adverse reaction me1 15:00 Drug: NS 0.9% IV 1000 ml IV at 1 bolus Per protocol; to be given as a bolus over 60 me1 minutes Route: IV; Rate: 1 bolus; Site: left antecubital; 16:04 Follow up: Response: No adverse reaction; IV Status: Completed infusion; IV Intake: me1 1000ml 15:00 Drug: Ondansetron IVP 8 mg IVP once; over 2 minutes Route: IVP; Site: left antecubital; me1 15:16 Follow up: Response: No adverse reaction; Nausea is decreased me1 15:32 Drug: HYDROmorphone IVP 1 mg IVP once; if needed Route: IVP; Site: left antecubital; me1 15:48 Follow up: Response: No adverse reaction; Pain is decreased me1 Medication: 15:12 VIS not applicable for this client. me1 Intake: 16:04 IV: 1000ml; Total: 1000ml. me1 Outcome: 15:48 Discharge ordered by . sin 16:03 Discharged to home ambulatory, with family, me1 16:03 Condition: stable 16:03 Discharge instructions given to patient, Instructed on discharge instructions, follow up and referral plans. medication usage, Demonstrated understanding of instructions, follow-up care, medications, Prescriptions given X 4, 16:04 Patient left the ED. me1 Signatures: Dispatcher [employer] EDMS Talon Whitt MD MD cha Leal, Jahala RN RN jl7 Jaky Lara, RN Keyana Lemons Michelle, RN RN me1 Juan F Quiñones, Sherif [facility] Corrections: (The following items were deleted from the chart) 12:39 12:36 Chief complaint: Patient states: Left sided abdominal pain since yesterday, jl7 denies N/V/D jl7 12:36 Coronavirus screen: At this time, the client does not indicate any symptoms jl7 associated with coronavirus-19. 7 46 12:36 BP 114 / 70; Pulse 70bpm; Resp 17bpm; Pulse Ox 98%; Temp 97.7F; 122.92 kg; Height jl7 5 ft. 2 in.; BMI: 49.5; Pain 8, Adult; 7 15:11 12:35 Chief complaint: Patient states: N/V since yesterday now having bright red blood me1 in the yellow vomit 7 15:14 12:45 Pain: Complains of pain in left upper quadrant and right upper quadrant and me1 epigastric area and abdomen and abdomen diffusely me1
[2024-12-10 16:23] VITALS: BP 139/83; TEMP 98.4; O2SAT 94
== END 2024-12-10 16:04 | disposition home or self-care (01) ==
LOC: ER 12:06
DX: K29.00 Acute gastritis without bleeding (principal); R10.816 Epigastric abdominal tenderness; I10 Essential (primary) hypertension; Z98.2 Presence of cerebrospinal fluid drainage device
CPT/HCPCS: 96361; 85025; 36415; 83690; 80053; 70450; 71250; 72125; 74176; 96375; 96372; 96374; 99285; J2550; J2470; J1171 ×2; J2405 ×2; J7030

== ENCOUNTER 2024-12-27 23:44 | Emergency (ER) | payer OTHER ==
[2024-12-28] MEDS ORDERED: droPERidol 5 MG/2 ML VIAL ONE (00:34)
[2024-12-28] MEDS ORDERED: FAMOTIDINE 20 MG/2 ML VIAL IV ONE (00:34)
[2024-12-28] MEDS ORDERED: NA CHLORIDE 0.9% 1,000 ML ONE (00:34)
[2024-12-28] MEDS ORDERED: DIPHENHYDRAMINE 50 MG/ML VIAL ONE (00:36)
[2024-12-28] MEDS ORDERED: NA CHLORIDE 0.9% 50 ML ONE (00:36)
[2024-12-28] MEDS ORDERED: METOCLOPRAMIDE 10 MG/2mL INJ ONE (00:36)
[2024-12-28 01:18] LABS: ALT/SGPT 28 U/L (16-61); Albumin 3.4 g/dL (3.4-5.0); Albumin/Globulin Ratio 0.9 (1.1-1.8); Alkaline Phosphatase 125 U/L (45-117); Anion Gap 9.6 mEq/L (5.0-15.0); BUN Blood Urea Nitrogen 12 mg/dL (7-18); Bicarbonate 24 mEq/L (21-32); Bilirubin Total 0.8 mg/dL (0.2-1.0); Globulin 3.7 g/dL (2.3-3.5); Glomerular Filtration Rate 69 ml/min (=/>90); Glucose Level 88 mg/dL (74-106); Lipase 15 U/L (13-75); Potassium 3.6 mEq/L (3.5-5.1); Protein, Total 7.1 g/dL (6.4-8.2); Sodium Level 140 mEq/L (136-145)
[2024-12-28 01:24] LABS: SARS-CoV-2 Antigen Rapid Res Negative (Negative)
[2024-12-28 01:25] LABS: AST/SGOT < 10 U/L (15-37)
[2024-12-28 01:36] LABS: Hematocrit 41.6 % (39.6-49.0); Lymphocytes % 31.2 % (15.3-44.8); MCH 28.3 pg (27.0-35.0); MCHC 33.7 g/dL (32.0-36.0); MPV 9.4 fL (7.6-11.3); Neutrophils % 52.6 % (41.7-73.7); Platelets 211 thou/uL (152-406); RBC Red Blood Cell Count 4.96 M/uL (4.33-5.43); Red Cell Distribution Width 14.8 % (12.1-15.2)
--- NOTE | 2024-12-28 01:36 | RAD REPORT ---
EXAM: XR Chest, 1 View CLINICAL HISTORY: vomiting TECHNIQUE: Frontal view of the chest. COMPARISON: No relevant prior studies available. FINDINGS: Lungs: Unremarkable. No consolidation. Pleural space: Unremarkable. No pneumothorax. Heart: Unremarkable. No cardiomegaly. Mediastinum: Unremarkable. Normal mediastinal contour. Bones/joints: Unremarkable. No acute fracture. 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 IMPRESSION: No acute disease. Electronically signed by: Palma Last MD 12/28/2024 01:26 AM CDT Transcribed Date/Time: 12/28/2024 1:36 AM
[2024-12-28 01:37] LABS: Absolute Eosinophils 0.7 K/uL (0-0.5); Absolute Lymphocytes (CBC) 2.5 K/uL (0.7-4.9); Absolute Monocytes 0.6 K/uL (0.1-1.3); Absolute Neutrophil 4.3 K/uL (1.8-8.0); Basophils % 0.5 % (0-1.3); Eosinophils % 8.5 % (0-4.4); Monocytes % 7.2 % (3.3-12.3); Nucleated Red Blood Cells % 0.1 % (0-0)
[2024-12-28 01:38] LABS: CDIFF INTERNAL NEG CONTROL White Background (WHITE BKGD); STOOL CONSISTENCY Liquid/Semi-Solid
[2024-12-28 01:39] LABS: C.diff Antigen/Toxin Ag neg : Tox neg (NEG : NEG)
--- NOTE | 2024-12-28 01:43 | ER ---
Nurse's Notes [facility] Name: Terry Akins Sr Age: 44 yrs Sex: Male : 1980 Arrival Date: 12/27/2024 Time: 23:44 Bed 18 Private MD: Diagnosis: Nausea with vomiting, unspecified;Diarrhea, unspecified Presentation: 12/27 23:55 Chief complaint: Patient states: sick since , burping that causes me to vomit vc1 and diarrhea. Coronavirus screen: Client denies travel out of the [place] in the last 14 days. At this time, the client does not indicate any symptoms associated with coronavirus-19. Ebola Screen: Patient negative for fever greater than or equal to 101.5 degrees Fahrenheit, and additional compatible Ebola Virus Disease symptoms Patient denies exposure to infectious person. Patient denies travel to an Ebola-affected area in the 21 days before illness onset. No symptoms or risks identified at this time. Initial Sepsis Screen: Does the patient meet any 2 criteria? No. Patient's initial sepsis screen is negative. Does the patient have a suspected source of infection? No. Patient's initial sepsis screen is negative. Risk Assessment: Do you want to hurt yourself or someone else? Patient reports no desire to harm self or others. Onset of symptoms was December 24, 2024. Care prior to arrival: None. Activity prior to arrival: vomiting. Mechanism of Injury: No Mechanism of Injury. Transition of care: patient was not received from another setting of care. 23:55 Method Of Arrival: Ambulatory vc1 23:55 Acuity: SARITHA 3 vc1 Triage Assessment: 12/28 00:15 General: Appears in no apparent distress. uncomfortable, obese, well groomed, well vc1 developed, Behavior is calm, cooperative, appropriate for age. Pain: Complains of pain in epigastric area Pain does not radiate. Pain currently is 10 out of 10 on a pain scale. Quality of pain is described as pressure, sharp, Pain began Also complains of nausea, V/D. EENT: No deficits noted. No signs and/or symptoms were reported regarding the EENT system. Neuro: Level of Consciousness is awake, alert, obeys commands, Oriented to person, place, time, situation, Appropriate for age. Cardiovascular: Heart tones S1 S2 present Capillary refill < 3 seconds Patient's skin is warm and dry. Respiratory: Airway is patent Respiratory effort is even, unlabored, Respiratory pattern is regular, symmetrical, Breath sounds are clear bilaterally. GI: Abdomen is round non-distended, Reports bloating, diarrhea, epigastric pain, gaseousness, intolerance of fluids, intolerance of food, nausea, vomiting. : No deficits noted. No signs and/or symptoms were reported regarding the genitourinary system. Derm: Skin is intact, is healthy with good turgor, Skin is dry, Skin is normal, Skin temperature is warm. Musculoskeletal: Circulation, motion, and sensation intact. Range of motion: intact in all extremities. 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 - Infectious Disease History:: Denies. - Social history:: Smoking status: Reported history of juuling and/or vaping. Screenin:14 [facility] ED Fall Risk Assessment (Adult) History of falling in the last 3 months, vc1 including since admission No falls in past 3 months (0 pts) Confusion or Disorientation No (0 pts) Intoxicated or Sedated No (0 pts) Impaired Gait No (0 pts) Mobility Assist Device Used No (0 pt) Altered Elimination Yes (1 pt) Score/Fall Risk Level 0 - 2 = Low Risk Oriented to surroundings, Maintained a safe environment, Educated pt \T\ family on fall prevention, incl call for assistance when getting out of bed, Hourly rounding (assess needs \T\ fall precautionary measures) done. Abuse screen: Denies threats or abuse. Nutritional screening: Has had N/V for 3 or more days. Tuberculosis screening: No symptoms or risk factors identified. Assessment: 00:17 Reassessment: See triage assessment. vc1 00:17 GI: Bowel sounds present X 4 quads. Abd is soft Abdomen is tender to palpation. vc1 01:52 Reassessment: Patient appears in no apparent distress at this time. No changes from vc1 previously documented assessment. Patient and/or family updated on plan of care and expected duration. Pain level reassessed. Patient is alert, oriented x 3, equal unlabored respirations, skin warm/dry/pink. Vital Signs: 12/27 23:55 BP 133 / 81; Pulse 76; Resp 17; Temp 99.1; Pulse Ox 100% ; Weight 158.76 kg; Height 6 vc1 ft. 3 in. ; Pain 10/10; 12/28 01:52 BP 148 / 88; Pulse 78; Resp 17; Pulse Ox 99% ; vc1 12/27 23:55 Body Mass Index 43.75 (158.76 kg, 190.5 cm) vc1 12/27 23:55 Pain Scale: Adult vc1 ED Course: 12/27 23:46 Patient arrived in ED. mr 23:48 Talon Lakhani PA is PHCP. cp 23:48 Kobi Martines MD is Attending Physician. cp 12/28 00:13 Triage completed. vc1 00:14 Arm band placed on left wrist. vc1 00:15 Patient has correct armband on for positive identification. Bed in low position. Call vc1 light in reach. Provided Education on: Plan of care. Pulse ox on. NIBP on. 00:46 SARS RAPID Sent. kmf 00:46 Stool Culture Sent. kmf 00:46 Rotavirus Antigen Sent. kmf 00:47 Cristin Storm, RN is Primary Nurse. vc1 00:47 Ova And Parasites Sent. kmf 00:47 Fecal Leukocyte Stain Sent. kmf 00:47 CBC with Diff Sent. kmf 00:47 CMP Sent. kmf 00:47 Lipase Sent. kmf 00:54 XRAY Chest (1 view) In Process Unspecified. EDMS 01:44 Removal of peripheral IV. Catheter intact, dressing applied. td1 01:52 No provider procedures requiring assistance completed. IV discontinued, intact, vc1 bleeding controlled, No redness/swelling at site. Pressure dressing applied. Administered Medications: 00:53 Drug: diphenhydrAMINE IVP 25 mg IVP once Route: IVP; Site: right antecubital; vc1 00:53 Drug: Droperidol IVP 1.25 mg IVP once Route: IVP; Site: right antecubital; vc1 00:54 Drug: Famotidine IVP 20 mg IVP once; dilute with 10 mL 0.9% NaCl; give over 2 minutes vc1 Route: IVP; Site: right antecubital; 00:54 Drug: NS 0.9% IV 1000 ml IV at 1 bolus Per protocol; to be given as a bolus over 60 vc1 minutes Route: IV; Rate: 1 bolus; Site: right antecubital; 00:54 Drug: metoCLOPramide IVP 10 mg IVP once; over 1 to 2 minutes Route: IVP; Site: right vc1 antecubital; Medication: 00:17 VIS not applicable for this client. vc1 Outcome: 01:43 Discharge ordered by . cp 01:52 Discharged to home ambulatory, vc1 01:52 Condition: stable 01:52 Discharge instructions given to patient, Instructed on discharge instructions, follow up and referral plans. medication usage, Demonstrated understanding of instructions, follow-up care, medications, Prescriptions given X 2, 01:54 Patient left the ED. vc1 Signatures: Dispatcher [employer] EDMS Ghislaine Reddy, Salvador Reg mr Talon Lakhani PA PA cp Calcote, Vanessa, RN RN vc1 Talisha Yarbrough [facility] Brian Myles td1 Corrections: (The following items were deleted from the chart) 00:14 00:13 Allergies: No Known Allergies; vc1 vc1
--- NOTE | 2024-12-28 01:43 | EDPHYS ---
Physician Documentation [facility] Name: Terry Akins Sr Age: 44 yrs Sex: Male : 1980 Arrival Date: 12/27/2024 Time: 23:44 Bed 18 Private MD: ED Physician Kobi Martines HPI: 12/28 00:05 This 44 yrs old Black Male presents to ER via Ambulatory with complaints of Abdominal cp Pain, Vomiting/Diarrhea. 00:05 The patient presents with abdominal pain that is diffuse. Onset: The symptoms/episode cp began/occurred this past . Associated signs and symptoms: Pertinent positives: nausea and vomiting, diarrhea, Pertinent negatives: blood in stools, chest pain, fever, shortness of breath, testicular pain, vomiting blood. The symptoms are described as burning. Severity of pain: in the emergency department the pain is unchanged despite home interventions. 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 - Infectious Disease History:: Denies. - Social history:: Smoking status: Reported history of juuling and/or vaping. ROS: 00:10 Constitutional: Negative for body aches, chills, fever, cp 00:10 Eyes: Negative for injury, pain, redness, and discharge, cp 00:10 ENT: Negative for drainage from ear(s), ear pain, sore throat, difficulty swallowing, difficulty handling secretions, 00:10 Cardiovascular: Negative for chest pain, edema, palpitations, 00:10 Respiratory: Negative for cough, shortness of breath, wheezing, 00:10 Abdomen/GI: Positive for abdominal pain, nausea and vomiting, diarrhea, Negative for constipation, hematemesis, black/tarry stool, rectal bleeding, 00:10 Back: Negative for pain at rest, pain with movement, 00:10 Neuro: Negative for altered mental status, dizziness, headache, numbness, syncope, weakness, 00:10 All other systems are negative, Exam: 00:15 Head/Face: Normocephalic, atraumatic. cp 00:15 Constitutional: The patient appears in no acute distress, alert, awake, non-diaphoretic, non-toxic, well developed, well nourished, obese, uncomfortable, 00:15 Eyes: Periorbital structures: appear normal, Conjunctiva: normal, no exudate, no injection, Sclera: no appreciated abnormality, Lids and lashes: appear normal, bilaterally, 00:15 ENT: External ear(s): are unremarkable, Nose: is normal, Mouth: Lips: moist, Oral cp mucosa: moist, Posterior pharynx: Airway: no evidence of obstruction, patent, 00:15 Chest/axilla: Inspection: normal, 00:15 Cardiovascular: Rate: normal, Rhythm: regular, 00:15 Respiratory: the patient does not display signs of respiratory distress, Respirations: normal, no use of accessory muscles, no retractions, labored breathing, is not present, Breath sounds: are clear throughout, no decreased breath sounds, no stridor, no wheezing, 00:15 Abdomen/GI: Inspection: obese Bowel sounds: active, all quadrants, Palpation: soft, in all quadrants, moderate abdominal tenderness, in the epigastric area, right upper quadrant and left upper quadrant, rebound tenderness, is not appreciated, involuntary guarding, is not appreciated, 00:15 Neuro: Orientation: to person, place \T\ time. Mentation: is normal, Vital Signs: 12/27 23:55 BP 133 / 81; Pulse 76; Resp 17; Temp 99.1; Pulse Ox 100% ; Weight 158.76 kg; Height 6 vc1 ft. 3 in. ; Pain 10/10; 12/28 01:52 BP 148 / 88; Pulse 78; Resp 17; Pulse Ox 99% ; vc1 12/27 23:55 Body Mass Index 43.75 (158.76 kg, 190.5 cm) vc1 12/27 23:55 Pain Scale: Adult vc1 MDM: 12/27 23:57 Medical Screening Exam initiated cp 12/28 01:42 Data reviewed: vital signs, nurses notes, lab test result(s), radiologic studies, plain cp films, and as a result, I will discharge patient. 01:42 Differential diagnosis: cholecystitis, Cholelithiasis, gastritis, gastroesophageal cp reflux disease, GI Bleed, pancreatitis, Peptic Ulcer Disease, Perf. Duodenal Ulcer, Perf. Gastric Ulcer. I considered the following discharge prescriptions or medication management in the emergency department Medications were administered in the Emergency Department. See MAR. Care significantly affected by the following chronic conditions: Hypertension. Counseling: I had a detailed discussion with the patient and/or guardian regarding the historical points, exam findings, and any diagnostic results supporting the discharge/admit diagnosis, lab results, radiology results, to return to the emergency department if symptoms worsen or persist or if there are any questions or concerns that arise at home. Response to treatment: the patient's symptoms have markedly improved after treatment, and as a result, I will discharge patient. Special discussion: Based on the patient's Hx, exam, and Dx evaluation, there is no indication for emergent surgery or inpatient Tx. It is understood by the patient/guardian that if the Sx's persist or worsen they need to return immediately for re-evaluation. ED course: VSS. Pain and vomiting resolved, nausea markedly improved. Patient refused CT abdomen/pelvis. Will discharge to home for continued monitoring. 12/28 00:31 Order name: CBC with Diff; Complete Time: : cp 12/28 01:38 Interpretation: Normal except: EOSINOPHIL % 8.5; EOSA 0.7. cp 12/28 00:31 Order name: CMP; Complete Time: : cp 12/28 01:38 Interpretation: Normal except: CL 110; GFR 69; AST < 10; ALK 125; GLOB 3.7; A/G 0.9. cp 12/28 00:31 Order name: Lipase; Complete Time: 01:38 cp 12/28 00:31 Order name: SARS RAPID; Complete Time: : cp 12/28 00:31 Order name: CDIFF cp 12/28 00:31 Order name: Lactate w/ 2H reflex if indic.; Complete Time: :38 cp 12/28 00:31 Order name: XRAY Chest (1 view); Complete Time: 01:38 cp 12/28 00:31 Order name: IV Saline Lock; Complete Time: 00:54 cp 12/28 00:31 Order name: Labs collected and sent; Complete Time: 00:54 cp Administered Medications: 00:53 Drug: diphenhydrAMINE IVP 25 mg IVP once Route: IVP; Site: right antecubital; vc1 00:53 Drug: Droperidol IVP 1.25 mg IVP once Route: IVP; Site: right antecubital; vc1 00:54 Drug: Famotidine IVP 20 mg IVP once; dilute with 10 mL 0.9% NaCl; give over 2 minutes vc1 Route: IVP; Site: right antecubital; 00:54 Drug: NS 0.9% IV 1000 ml IV at 1 bolus Per protocol; to be given as a bolus over 60 vc1 minutes Route: IV; Rate: 1 bolus; Site: right antecubital; 00:54 Drug: metoCLOPramide IVP 10 mg IVP once; over 1 to 2 minutes Route: IVP; Site: right vc1 antecubital; Disposition Summary: 12/28/24 01:43 Discharge Ordered Notes: Location: Home cp Condition: Stable cp Diagnosis - Nausea with vomiting, unspecified cp - Diarrhea, unspecified cp Followup: cp - With: Private Physician - When: 2 - 3 days - Reason: Worsening of condition Discharge Instructions: - Discharge Summary Sheet cp - Food Choices to Help Relieve Diarrhea, Adult cp - Diarrhea, Adult cp - Nausea and Vomiting, Adult cp Forms: - Medication Reconciliation Form cp - Antibiotic Education cp - Prescription Opioid Use cp - Patient Portal Instructions cp - Leadership Thank You Letter cp Prescriptions: - promethazine 25 mg Oral Tablet - take 1 tablet ORAL route every 6 hours As needed; 20 tablet; Refills: 0, cp Product Selection Permitted - dicyclomine 20 mg Oral tablet - take 1 tablet ORAL route 4 times per day; 30 tablet; Refills: 0, Product cp Selection Permitted Addendum: 12/30/2024 09:57 Co-signature as Attending Physician, Kobi Martines MD I reviewed the patient's care r t provided by the Advanced Practice Provider and agree with the diagnosis and treatment plan. Signatures: Dispatcher [employer] EDMS Talon Lakhani PA PA cp Cristin Storm RN RN vc1 Kobi Martines MD MD rt Corrections: (The following items were deleted from the chart) 12/28 00:14 00:13 Allergies: No Known Allergies; vc1 vc1 00:31 00:31 CBC+H.LAB.BRZ ordered. EDMS EDMS 00:31 00:31 COMPREHENSIVE METABOLIC PANEL+C.LAB.BRZ ordered. EDMS EDMS 00:31 00:31 LIPASE+C.LAB.BRZ ordered. EDMS EDMS 00:31 00:31 SARS-COV-2 Antigen Rapid+I.LAB.BRZ ordered. EDMS EDMS 00:31 Fecal Leukocyte Stain+BA.LAB.BRZ ordered. EDMS EDMS 00:31 Ova and Parasites+MR.LAB.BRZ ordered. EDMS EDMS 00:31 Rotavirus Antigen+BA.LAB.BRZ ordered. EDMS EDMS 00:31 Stool Culture+BA.LAB.BRZ ordered. EDMS EDMS 00:31 C.difficile GDH Ag \T\ Toxin AB+LAB.BRZ ordered. EDMS EDMS 00:31 LACTATE+C.LAB.BRZ ordered. EDMS EDMS
[2024-12-28 01:58] VITALS: TEMP 99.1
[2024-12-28 01:59] VITALS: BP 148/88; O2SAT 99
== END 2024-12-28 01:54 | disposition home or self-care (01) ==
LOC: ER 23:44
DX: R11.2 Nausea with vomiting, unspecified (principal); R19.7 Diarrhea, unspecified; Z98.2 Presence of cerebrospinal fluid drainage device; Z11.52 Encounter for screening for COVID-19
CPT/HCPCS: 85025; 36415; 83605; 87324; 83690; 80053; 71045; 96375; 96374; 99284; 87426; J2765; J1200; J1790; J7030

== ENCOUNTER 2025-03-27 20:30 | Emergency (ER) | payer OTHER ==
[2025-03-27] MEDS ORDERED: HYDROCODONE/APAP 5/325 MG TAB ONE (20:47)
--- NOTE | 2025-03-27 22:16 | RAD REPORT ---
Exam:Shoulder Right 2+ Views History: Right shoulder pain Findings: No fracture or dislocation seen Mild osteoarthritis AC joint
--- NOTE | 2025-03-27 22:23 | ER ---
Nurse's Notes [facility] Name: Terry Akins Sr Age: 44 yrs Sex: Male : 1980 Arrival Date: 03/27/2025 Time: 20:30 Bed 19 Private MD: Diagnosis: Pain in right shoulder;Essential (primary) hypertension Presentation: 03/27 20:42 Chief complaint: Patient states: RT SHOULDER PAIN STARTED 3 DAYS AGO PT REPORTS HE dd2 FEELS LIKE HE SLEPT WRONG, PAIN WORSENED EACH DAY. Coronavirus screen: At this time, the client does not indicate any symptoms associated with coronavirus-19. Ebola Screen: No symptoms or risks identified at this time. Initial Sepsis Screen: Does the patient meet any 2 criteria? No. Patient's initial sepsis screen is negative. Does the patient have a suspected source of infection? No. Patient's initial sepsis screen is negative. Risk Assessment: Do you want to hurt yourself or someone else? Patient reports no desire to harm self or others. Onset of symptoms was March 24, 2025. 20:42 Method Of Arrival: Ambulatory dd2 20:42 Acuity: SARITHA 4 dd2 Triage Assessment: 20:45 General: Appears in no apparent distress. uncomfortable, Behavior is calm, cooperative, dd2 appropriate for age. Pain: Complains of pain in anterior aspect of right shoulder Pain currently is 9 out of 10 on a pain scale. EENT: No deficits noted. No signs and/or symptoms were reported regarding the EENT system. Neuro: No deficits noted. Cardiovascular: No deficits noted. Respiratory: No deficits noted. GI: No deficits noted. No signs and/or symptoms were reported involving the gastrointestinal system. : No deficits noted. No signs and/or symptoms were reported regarding the genitourinary system. Derm: No deficits noted. No signs and/or symptoms reported regarding the dermatologic system. Musculoskeletal: Circulation, motion, and sensation intact. Range of motion: intact in all extremities, Reports pain in anterior aspect of right shoulder Pain is 9 out of 10 on a pain scale. 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 - Infectious Disease History:: Denies. - Social history:: Smoking status: Reported history of juuling and/or vaping. Screenin:47 [facility] ED Fall Risk Assessment (Adult) History of falling in the last 3 months, dd2 including since admission No falls in past 3 months (0 pts) Confusion or Disorientation No (0 pts) Intoxicated or Sedated No (0 pts) Impaired Gait No (0 pts) Mobility Assist Device Used No (0 pt) Altered Elimination No (0 pt) Score/Fall Risk Level 0 - 2 = Low Risk Oriented to surroundings, Maintained a safe environment, Educated pt \T\ family on fall prevention, incl call for assistance when getting out of bed, Assessed \T\ reinforced patient's understanding of fall precautions, Hourly rounding (assess needs \T\ fall precautionary measures) done. Abuse screen: Denies threats or abuse. Denies injuries from another. Nutritional screening: No deficits noted. Tuberculosis screening: No symptoms or risk factors identified. Assessment: 20:47 Reassessment: SEE TRIAGE ASSESSMENT FOR FULL ASSESSMENT. dd2 21:26 Reassessment: Patient appears in no apparent distress at this time. Patient and/or bm8 family updated on plan of care and expected duration. Pain level reassessed. Patient is alert, oriented x 3, equal unlabored respirations, skin warm/dry/pink. pt's right placed in sling for comfort Patient states feeling better. Patient states symptoms have improved. 22:45 Reassessment: Patient appears in no apparent distress at this time. No changes from zm previously documented assessment. Patient and/or family updated on plan of care and expected duration. Pain level reassessed. Patient is alert, oriented x 3, equal unlabored respirations, skin warm/dry/pink. Patient states feeling better. Patient states symptoms have improved. Vital Signs: 20:42 BP 163 / 97; Pulse 83; Resp 17; Temp 97.6; Pulse Ox 99% ; Weight 158.76 kg; Height 6 dd2 ft. 3 in. ; Pain 9/10; 20:52 BP 154 / 86; Pulse 84; Resp 17; Temp 97.6; Pulse Ox 99% ; Pain 5/10; bm8 21:26 BP 161 / 77; Pulse 84; Resp 17; Temp 97.6; Pulse Ox 99% ; Pain 0/10; bm8 22:45 BP 165 / 72; Pulse 86; Resp 16; Temp 98; Pulse Ox 100% on R/A; Pain 0/10; zm 20:42 Body Mass Index 43.75 (158.76 kg, 190.5 cm) dd2 20:42 Pain Scale: Adult dd2 20:52 Pain Scale: Adult bm8 21:26 Pain Scale: Adult bm8 22:45 Pain Scale: Adult zm Omar Coma Score: 20:47 Eye Response: spontaneous(4). Motor Response: obeys commands(6). Verbal Response: dd2 oriented(5). Total: 15. 21:26 Eye Response: to voice(3). Motor Response: obeys commands(6). Verbal Response: bm8 oriented(5). Total: 14. 22:45 Eye Response: spontaneous(4). Motor Response: obeys commands(6). Verbal Response: zm oriented(5). Total: 15. ED Course: 20:31 Patient arrived in ED. im 20:35 Mathieu Orellana DO is Attending Physician. ms3 20:45 Triage completed. dd2 20:45 Arm band placed on right wrist. dd2 20:47 Patient has correct armband on for positive identification. dd2 20:47 No provider procedures requiring assistance completed. dd2 21:26 Joaquin Tamayo, RN is Primary Nurse. bm8 21:26 Shoulder immobilizer applied on right shoulder. bm8 22:00 Shoulder Right (2 View) XRAY In Process Unspecified. EDMS 22:22 Michel Rao MD is Referral Physician. ms3 22:47 Provided Education on: POST ER CARE. zm 22:47 Patient did not have IV access during this emergency room visit. zm Administered Medications: 20:51 Drug: HYDROcodone-acetaminophen PO 5 mg-325 mg 1 tabs PO once Route: PO; bm8 21:28 Follow up: Response: No adverse reaction bm8 Medication: 20:47 VIS not applicable for this client. dd2 Outcome: 22:23 Discharge ordered by . ms3 22:47 Discharged to home ambulatory, zm 22:47 Condition: stable 22:47 Discharge instructions given to patient, Instructed on discharge instructions, follow up and referral plans. safety practices, Demonstrated understanding of instructions, follow-up care, 22:49 Patient left the ED. zm Signatures: Dispatcher [employer] EDPA Mathieu Orellana DO DO ms3 Katherine Cage, RN RN Keyana Villalba Brad, RN RN bm8 AUDREY AKINS RN RN dd2 Corrections: (The following items were deleted from the chart) 21:27 21:26 Reassessment: Patient appears in no apparent distress at this time. Patient bm8 and/or family updated on plan of care and expected duration. Pain level reassessed. Patient is alert, oriented x 3, equal unlabored respirations, skin warm/dry/pink. Patient states feeling better. Patient states symptoms have improved. bm8
--- NOTE | 2025-03-27 22:23 | EDPHYS ---
Physician Documentation [facility] Name: Terry Akins Sr Age: 44 yrs Sex: Male : 1980 Arrival Date: 03/27/2025 Time: 20:30 Bed 19 Private MD: ED Physician Mathieu Orellana HPI: 03/27 22:23 This 44 yrs old Black Male presents to ER via Ambulatory with complaints of Shoulder ms3 Pain - right. 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 Patient states the pain is worse with abduction. He rates the pain an 8/10. Patient states he has tried [place] balm, meloxicam, Motrin, Tylenol without relief.. 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 - Infectious Disease History:: Denies. - Social history:: Smoking status: Reported history of juuling and/or vaping. ROS: 22:23 Constitutional: Negative for fever, and chills. Cardiovascular: Negative for chest ms3 pain, and palpitations. Respiratory: Negative for shortness of breath, cough, wheezing, and pleuritic chest pain, Abdomen/GI: Negative for abdominal pain, nausea, vomiting, diarrhea, and constipation, 22:23 MS/extremity: Positive for pain, of the anterior aspect of right shoulder, Exam: 22:23 Constitutional: This is a well developed, well nourished patient who is awake, alert, ms3 and in no acute distress. Cardiovascular: Regular rate and rhythm with a normal S1 and S2. No gallops, murmurs, or rubs. Normal PMI, no JVD. No pulse deficits. Respiratory: Lungs have equal breath sounds bilaterally, clear to auscultation and percussion. No rales, rhonchi or wheezes noted. No increased work of breathing, no retractions or nasal flaring. Abdomen/GI: Soft, non-tender, with normal bowel sounds. No distension or tympany. No guarding or rebound. No evidence of tenderness throughout. Skin: Warm, dry with normal turgor. Normal color with no rashes, no lesions, and no evidence of cellulitis. 22:23 Musculoskeletal/extremity: Extremities: noted in the Right shoulder: Anterior shoulder tenderness, range of motion limited secondary to pain., Vital Signs: 20:42 BP 163 / 97; Pulse 83; Resp 17; Temp 97.6; Pulse Ox 99% ; Weight 158.76 kg; Height 6 dd2 ft. 3 in. ; Pain 9/10; 20:52 BP 154 / 86; Pulse 84; Resp 17; Temp 97.6; Pulse Ox 99% ; Pain 5/10; bm8 21:26 BP 161 / 77; Pulse 84; Resp 17; Temp 97.6; Pulse Ox 99% ; Pain 0/10; bm8 22:45 BP 165 / 72; Pulse 86; Resp 16; Temp 98; Pulse Ox 100% on R/A; Pain 0/10; zm 20:42 Body Mass Index 43.75 (158.76 kg, 190.5 cm) dd2 20:42 Pain Scale: Adult dd2 20:52 Pain Scale: Adult bm8 21:26 Pain Scale: Adult bm8 22:45 Pain Scale: Adult zm Omar Coma Score: 20:47 Eye Response: spontaneous(4). Motor Response: obeys commands(6). Verbal Response: dd2 oriented(5). Total: 15. 21:26 Eye Response: to voice(3). Motor Response: obeys commands(6). Verbal Response: bm8 oriented(5). Total: 14. 22:45 Eye Response: spontaneous(4). Motor Response: obeys commands(6). Verbal Response: zm oriented(5). Total: 15. MDM: 20:35 Medical Screening Exam initiated ms3 22:23 Differential diagnosis: DJD, tendonitis. Data reviewed: vital signs, nurses notes, ms3 radiologic studies, and as a result, I will discharge patient. I considered the following discharge prescriptions or medication management in the emergency department Medications were administered in the Emergency Department. See MAR. Independent interpretation of the following test(s) in the Emergency Department X-Ray: My interpretation is Right shoulder x-ray images reviewed by me did not reveal fracture. Counseling: I had a detailed discussion with the patient and/or guardian regarding the historical points, exam findings, and any diagnostic results supporting the discharge/admit diagnosis, radiology results, the need for outpatient follow up, to return to the emergency department if symptoms worsen or persist or if there are any questions or concerns that arise at home. Special discussion: I discussed with the patient/guardian in detail that at this point there is no indication for admission to the hospital. It is understood, however, that if the symptoms persist or worsen the patient needs to return immediately for re-evaluation. ED course: On reevaluation patient symptoms improved, patient alert and oriented x 4, no apparent distress, nontoxic-appearing, speaking full sentences. Right shoulder is not erythematous or hot to suggest infection. Patient to follow-up with Dr. Rao in 2 to 3 days. Patient understands agrees with plan. All questions were answered. Return precautions discussed include fevers, chills, worsening symptoms, or any other concerns.. 03/27 20:35 Order name: Shoulder Right (2 View) XRAY; Complete Time: 22:22 ms3 03/27 20:39 Order name: Sling; Complete Time: 20:51 ms3 Administered Medications: 20:51 Drug: HYDROcodone-acetaminophen PO 5 mg-325 mg 1 tabs PO once Route: PO; bm8 21:28 Follow up: Response: No adverse reaction bm8 Disposition Summary: 03/27/25 22:23 Discharge Ordered Notes: Location: Home ms3 Condition: Stable ms3 Diagnosis - Pain in right shoulder ms3 - Essential (primary) hypertension ms3 Followup: ms3 - With: Michel Rao MD - When: 2 - 3 days - Reason: Recheck today's complaints Discharge Instructions: - Discharge Summary Sheet ms3 - Hypertension, Adult ms3 - Shoulder Pain ms3 - Shoulder Pain, [id number] ms3 - DASH Eating Plan ms3 Forms: - Medication Reconciliation Form ms3 - Antibiotic Education ms3 - Prescription Opioid Use ms3 - Patient Portal Instructions ms3 - Leadership Thank You Letter ms3 - Work release form zm Signatures: Dispatcher [employer] Mathieu Bird DO DO ms3 Joaquin Tamayo RN RN bm8 AUDREY AKINS RN RN dd2
[2025-03-28 06:28] VITALS: O2SAT 100
[2025-03-28 06:37] VITALS: BP 157/93; TEMP 97.9
== END 2025-03-27 22:49 | disposition home or self-care (01) ==
LOC: ER 20:30
DX: M25.511 Pain in right shoulder (principal); I10 Essential (primary) hypertension
CPT/HCPCS: 99284

== ENCOUNTER 2025-05-05 16:12 | Emergency (ER) | payer BC, OTHER ==
--- NOTE | 2025-05-05 17:27 | RAD REPORT ---
EXAMINATION: ONE VIEW CHEST XR CLINICAL INDICATION: Male, 44 years old.,CHEST PAIN TECHNIQUE: Frontal chest projection is submitted. Examination is limited by patient positioning and t echnique. COMPARISON: 12/28/2024 FINDINGS: The lungs are grossly clear although suboptimal inspiratory effort somewhat limits evaluation. No pn eumothorax or sizable effusion. The heart is normal in size. Mediastinal contours are unremarkable. IMPRESSION: No acute intrathoracic abnormalities.
[2025-05-05 17:38] LABS: Absolute Lymphocytes (CBC) 1.9 K/uL (0.7-4.9); Hematocrit 39.8 % (39.6-49.0); Hemoglobin 13.3 g/dL (13.6-17.9); MCH 27.8 pg (27.0-35.0); MCHC 33.4 g/dL (32.0-36.0); MCV 83.2 fL (80-100); MPV 8.4 fL (7.6-11.3); Nucleated RBC Absolute Count 0.0 (0-0); Nucleated Red Blood Cells % 0.1 % (0-0); RBC Red Blood Cell Count 4.79 M/uL (4.33-5.43); White Blood Count 7.40 thou/uL (4.3-10.9)
[2025-05-05 17:44] LABS: PT Prothrombin Time 11.5 SECONDS (10-13.0); Protime INR 1.02
[2025-05-05 17:58] LABS: ALT/SGPT 40 U/L (16-61); AST/SGOT 26 U/L (15-37); Albumin 3.5 g/dL (3.4-5.0); Albumin/Globulin Ratio 0.9 (1.1-1.8); Alkaline Phosphatase 109 U/L (45-117); Anion Gap 9.9 mEq/L (5.0-15.0); BUN Blood Urea Nitrogen 13 mg/dL (7-18); Globulin 3.7 g/dL (2.3-3.5); Glucose Level 132 mg/dL (74-106); Lipase 18 U/L (13-75); Magnesium 2.0 mg/dL (1.6-2.4); NT PRO-BNP 122 pg/mL (<125); Potassium 3.9 mEq/L (3.5-5.1); Troponin High Sensitivity 19.6 pg/mL (<58.9)
[2025-05-05 18:00] LABS: Bilirubin Indirect, Calculated 0.2 mg/dL (0.2-0.8)
--- NOTE | 2025-05-05 18:57 | ER ---
Nurse's Notes [facility] Name: Terry Akins Sr Age: 44 yrs Sex: Male : 1980 Arrival Date: 05/05/2025 Time: 16:12 Bed DX5 Private MD: Diagnosis: Chest pain, unspecified-NON CARDIAC;Pain in left arm Presentation: 05/05 16:49 Chief complaint: Patient states: HE WAS AT WORK AND NOTICED LT ARM SWELLING AND ll1 PAINFUL. PT REPORTS THAT WHEN HE ATTEMPTS TO STRAIGHTEN LT ARM, IT PULLS AND TIGHTENS IN HIS CHEST. PT ALSO REPORTS NUMBNESS RT 2ND AND 3RD TOES FOR 2 - 3 DAYS. Coronavirus screen: At this time, the client does not indicate any symptoms associated with coronavirus-19. Ebola Screen: No symptoms or risks identified at this time. Initial Sepsis Screen: Does the patient meet any 2 criteria? No. Patient's initial sepsis screen is negative. Does the patient have a suspected source of infection? No. Patient's initial sepsis screen is negative. Risk Assessment: Do you want to hurt yourself or someone else? Patient reports no desire to harm self or others. Onset of symptoms was May 03, 2025. 16:49 Method Of Arrival: Ambulatory ll1 16:49 Acuity: SARITHA 3 ll1 Triage Assessment: 16:52 General: Appears in no apparent distress. uncomfortable, Behavior is calm, cooperative, ll1 appropriate for age. Pain: Complains of pain in left arm Pain radiates to anterior aspect of left upper chest. Cardiovascular: Reports chest pain, WHEN HE STRAIGHTENS LT ARM. Musculoskeletal: Reports numbness in right second toe and right third toe. 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 Screenin:14 [facility] ED Fall Risk Assessment (Adult) History of falling in the last 3 months, vc1 including since admission No falls in past 3 months (0 pts) Confusion or Disorientation No (0 pts) Intoxicated or Sedated No (0 pts) Impaired Gait No (0 pts) Mobility Assist Device Used No (0 pt) Altered Elimination No (0 pt) Score/Fall Risk Level 0 - 2 = Low Risk Oriented to surroundings, Maintained a safe environment, Educated pt \T\ family on fall prevention, incl call for assistance when getting out of bed, Assessed \T\ reinforced patient's understanding of fall precautions, Hourly rounding (assess needs \T\ fall precautionary measures) done. Abuse screen: Denies threats or abuse. Nutritional screening: No deficits noted. Tuberculosis screening: No symptoms or risk factors identified. Vital Signs: 16:49 BP 170 / 97; Pulse 84; Resp 16; Temp 98.3; Pulse Ox 98% ; Weight 162.39 kg; Height 6 ll1 ft. 3 in. ; Pain 8/10; 20:14 BP 177 / 96; Pulse 76; Resp 20; Pulse Ox 96% ; vc1 16:49 Body Mass Index 44.75 (162.39 kg, 190.5 cm) ll1 16:49 Pain Scale: Adult ll1 ED Course: 16:15 Patient arrived in ED. cj3 16:32 Talon Whitt MD is Attending Physician. sin 16:52 Triage completed. ll1 16:52 Arm band placed on right wrist. ll1 17:14 XRAY Chest (1 view) In Process Unspecified. EDMS 17:20 EKG done, by quality control technician. reviewed by Talon Whitt MD. ts3 17:33 Lipase Sent. bc6 17:33 Basic Metabolic Panel Sent. bc6 17:33 CBC with Diff Sent. bc6 17:33 LFT's Sent. bc6 17:33 Magnesium Sent. bc6 17:33 NT PRO-BNP Sent. bc6 17:33 PT-INR Sent. bc6 17:33 Troponin HS Sent. bc6 17:34 Initial lab(s) drawn, by nj, sent to lab. Inserted saline lock: 20 gauge in right hand, bc6 using aseptic technique. Blood collected. Flushed with 10 mL NS. 18:55 UPPER EXTREMITY VENOUS UNILATE In Process Unspecified. EDMS 18:57 Juice Paige MD is Referral Physician. sin 20:15 No provider procedures requiring assistance completed. IV discontinued, intact, vc1 bleeding controlled, No redness/swelling at site. Pressure dressing applied. Administered Medications: 19:45 CANCELLED (Physician Discretion): ns 0.9% 1000 ml IV at 1000 ml once; to be given as a vc1 bolus over 60 minutes 20:05 Drug: Famotidine IVP 20 mg IVP once; dilute with 10 mL 0.9% NaCl; give over 2 minutes vc1 Route: IVP; Site: right wrist; 20:05 Drug: HYDROmorphone IVP 1 mg IVP once Route: IVP; Site: right wrist; vc1 20:05 Drug: Ondansetron IVP 8 mg IVP once; over 2 minutes Route: IVP; Site: right wrist; vc1 20:06 Drug: Aspirin PO Chewable Tablet 324 mg PO once; 81 mg tablets x 4 Route: PO; vc1 Medication: 20:16 VIS not applicable for this client. vc1 Outcome: 18:57 Discharge ordered by . sin 20:15 Discharged to home ambulatory, with significant other, vc1 20:15 Condition: stable 20:15 Discharge instructions given to patient, Instructed on discharge instructions, follow up and referral plans. medication usage, Demonstrated understanding of instructions, follow-up care, medications, Prescriptions given X 2, 20:16 Patient left the ED. vc1 Signatures: Dispatcher [employer] EDMS Talon Whitt MD MD cha Lewis, Lynsay, RN RN ll1 Cristin Storm RN RN vc1 Fadia Padilla bc6 Laquita Davila cj3 Crystal Stephenson3
--- NOTE | 2025-05-05 18:57 | EDPHYS ---
Physician Documentation [facility] Name: Terry Akins Sr Age: 44 yrs Sex: Male : 1980 Arrival Date: 05/05/2025 Time: 16:12 Bed DX5 Private MD: ED Physician Talon Whitt HPI: 05/05 17:54 This 44 yrs old Black Male presents to ER via Ambulatory with complaints of Chest Pain, sin Arm Pain, Dizziness, Finger Tingling. 17:54 The patient or guardian reports chest pain that is located primarily in the anterior sin chest wall, left. Onset: 2 day(s) ago. The pain does not radiate. 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 ROS: 17:54 Constitutional: Negative for fever, chills, and weight loss, Eyes: Negative for injury, sin pain, redness, and discharge, ENT: Negative for injury, pain, and discharge, Neck: Negative for injury, pain, and swelling, Cardiovascular: Negative for chest pain, palpitations, and edema, Respiratory: Negative for shortness of breath, cough, wheezing, and pleuritic chest pain, Abdomen/GI: Negative for abdominal pain, nausea, vomiting, diarrhea, and constipation, Back: Negative for injury and pain, : Negative for injury, bleeding, discharge, and swelling, Skin: Negative for injury, rash, and discoloration, Neuro: Negative for headache, weakness, numbness, tingling, and seizure, Psych: Negative for depression, anxiety, suicide ideation, homicidal ideation, and hallucinations, Allergy/Immunology: Negative for hives, rash, and allergies, Endocrine: Negative for neck swelling, polydipsia, polyuria, polyphagia, and marked weight changes, Hematologic/Lymphatic: Negative for swollen nodes, abnormal bleeding, and unusual bruising, 17:54 MS/extremity: Positive for pain, tenderness, of the left arm, Exam: 17:54 Constitutional: This is a well developed, well nourished patient who is awake, alert, sin and in no acute distress. Head/Face: Normocephalic, atraumatic. Eyes: Pupils equal round and reactive to light, extra-ocular motions intact. Lids and lashes normal. Conjunctiva and sclera are non-icteric and not injected. Cornea within normal limits. Periorbital areas with no swelling, redness, or edema. ENT: Nares patent. No nasal discharge, no septal abnormalities noted. Tympanic membranes are normal and external auditory canals are clear. Oropharynx with no redness, swelling, or masses, exudates, or evidence of obstruction, uvula midline. Mucous membranes moist. Neck: Trachea midline, no thyromegaly or masses palpated, and no cervical lymphadenopathy. Supple, full range of motion without nuchal rigidity, or vertebral point tenderness. No Meningismus. Chest/axilla: Normal chest wall appearance and motion. Nontender with no deformity. No lesions are appreciated. Cardiovascular: Regular rate and rhythm with a normal S1 and S2. No gallops, murmurs, or rubs. Normal PMI, no JVD. No pulse deficits. Respiratory: Lungs have equal breath sounds bilaterally, clear to auscultation and percussion. No rales, rhonchi or wheezes noted. No increased work of breathing, no retractions or nasal flaring. Abdomen/GI: Soft, non-tender, with normal bowel sounds. No distension or tympany. No guarding or rebound. No evidence of tenderness throughout. Back: No spinal tenderness. No costovertebral tenderness. Full range of motion. Male : Normal genitalia with no discharge or lesions. Skin: Warm, dry with normal turgor. Normal color with no rashes, no lesions, and no evidence of cellulitis. Neuro: Awake and alert, GCS 15, oriented to person, place, time, and situation. Cranial nerves II-XII grossly intact. Motor strength 5/5 in all extremities. Sensory grossly intact. Cerebellar exam normal. Normal gait. Psych: Awake, alert, with orientation to person, place and time. Behavior, mood, and affect are within normal limits. 17:54 ECG was reviewed by the Attending Physician. 17:54 Musculoskeletal/extremity: Extremities: grossly normal except: noted in the left arm: pain, DVT Exam: negative Homans' sign noted on exam, no appreciated bluish discoloration, no erythema, no increased warmth, pain, swelling, tenderness, Vital Signs: 16:49 BP 170 / 97; Pulse 84; Resp 16; Temp 98.3; Pulse Ox 98% ; Weight 162.39 kg; Height 6 ll1 ft. 3 in. ; Pain 8/10; 20:14 BP 177 / 96; Pulse 76; Resp 20; Pulse Ox 96% ; vc1 16:49 Body Mass Index 44.75 (162.39 kg, 190.5 cm) ll1 16:49 Pain Scale: Adult ll1 MDM: 16:32 Medical Screening Exam initiated sin 18:53 Differential diagnosis: contusion, abrasion, tendonitis, abnormal EKG, acute myocardial sin infarction, acute pericarditis, anxiety, chest wall pain, pancreatitis, pneumonia, pneumothorax, pulmonary embolus, stable angina, thoracic aortic disection, unstable angina. HEART Score: History: Slightly Suspicious (0), ECG: Non specific repolarization disturbance / LBTB / PM (1), Age: < or = 45 years (0), Risk Factors: > or = 3 Risk factors for atherosclerotic disease (2), [Hypertension] [+ Family HX] [Obesity] Troponin: < or = 1 x Normal Limit (0). The patient was given aspirin in the Emergency Department. DESTINEY Risk Score: 1 - Three or more CAD risk factors, TOTAL SCORE = 1. Data reviewed: vital signs, nurses notes, lab test result(s), EKG, radiologic studies, plain films. Consideration of Admission/Observation Escalation of care including admission/observation considered. I considered the following discharge prescriptions or medication management in the emergency department Medications were administered in the Emergency Department. See MAR. Independent interpretation of the following test(s) in the Emergency Department EKG: See my EKG interpretation above. Test considered but Not performed: Ultrasound NO 2 D ECHO. Historians other than the Patient: Family Member: FAMILY WELL INFORMED. PT WELL INFORMED. 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 05/05 16:32 Order name: Basic Metabolic Panel; Complete Time: 18:52 [facility] 05/05 16:32 Order name: CBC with Diff; Complete Time: 18:52 [facility] 05/05 16:32 Order name: LFT's; Complete Time: 18:52 [facility] 05/05 16:32 Order name: Magnesium; Complete Time: 18:52 [facility] 05/05 16:32 Order name: NT PRO-BNP; Complete Time: 18:52 [facility] 05/05 16:32 Order name: PT-INR; Complete Time: 18:52 [facility] 05/05 16:32 Order name: Troponin HS; Complete Time: 18:52 [facility] 05/05 16:32 Order name: Lipase; Complete Time: 18:52 [facility] 05/05 16:32 Order name: XRAY Chest (1 view); Complete Time: 18:52 [facility] 05/05 18:17 Order name: UPPER EXTREMITY VENOUS UNILATE EDMS 05/05 16:32 Order name: EKG - Nurse/Tech; Complete Time: 17:20 [facility] 05/05 16:32 Order name: IV Saline Lock; Complete Time: 17:33 [facility] 05/05 16:32 Order name: Labs collected and sent; Complete Time: 17:33 [facility] 05/05 17:54 Order name: Sling; Complete Time: 17:57 [facility] EC:54 Rate is 81 beats/min. Rhythm is regular. QRS [place] is Normal. MS interval is normal. QRS sin interval is normal. QT interval is normal. No Q waves. T waves are Normal. No ST changes noted. Clinical impression: NSR w/ Non-specific ST/T Changes, LVH, and No evidence of ischemia. Interpreted by me. Reviewed by me. Administered Medications: 19:45 CANCELLED (Physician Discretion): ns 0.9% 1000 ml IV at 1000 ml once; to be given as a vc1 bolus over 60 minutes 20:05 Drug: Famotidine IVP 20 mg IVP once; dilute with 10 mL 0.9% NaCl; give over 2 minutes vc1 Route: IVP; Site: right wrist; 20:05 Drug: HYDROmorphone IVP 1 mg IVP once Route: IVP; Site: right wrist; vc1 20:05 Drug: Ondansetron IVP 8 mg IVP once; over 2 minutes Route: IVP; Site: right wrist; vc1 20:06 Drug: Aspirin PO Chewable Tablet 324 mg PO once; 81 mg tablets x 4 Route: PO; vc1 Disposition Summary: 05/05/25 18:57 Discharge Ordered Notes: Location: Home sin Problem: new sin Symptoms: have improved sin Condition: Stable sin Diagnosis - Chest pain, unspecified - NON CARDIAC sin - Pain in left arm sin Followup: sin - With: Private Physician - When: 2 - 3 days - Reason: Recheck today's complaints, Continuance of care, Re-evaluation by your physician Followup: sin - With: Juice Paige MD - When: 2 - 3 days - Reason: Recheck today's complaints, Re-evaluation by your physician Discharge Instructions: - Discharge Summary Sheet sin - Nonspecific Chest Pain, Adult sin - Nonspecific Chest Pain, Adult, [id number] sin - Aspirin and Your Heart sin Forms: - Medication Reconciliation Form sin - Antibiotic Education sin - Prescription Opioid Use sin - Patient Portal Instructions sin - Leadership Thank You Letter sin - Family Work Release vc1 Prescriptions: - diclofenac sodium 25 mg Oral tablet, delayed release (enteric coated) - take 1 tablet ORAL route 3 times per day; 21 tablet; Refills: 0, Product [facility] Selection Permitted - Tylenol-Codeine #3 300mg-30mg Oral tablet - take 2 tablets ORAL route every 6 hours As needed; 20 tablet; Refills: 0, sin Product Selection Permitted Signatures: Dispatcher [employer] EDMS Talon Whitt MD MD cha Lewis, Lynsay RN RN ll1 Cristin Storm RN RN vc1 Corrections: (The following items were deleted from the chart) 16:33 16:33 BASIC METABOLIC PANEL+C.LAB.BRZ ordered. EDMS EDMS 16:33 16:33 CBC+H.LAB.BRZ ordered. EDMS EDMS 16:33 16:33 HEPATIC FUNCTION+C.LAB.BRZ ordered. EDMS EDMS 16:33 16:33 MAGNESIUM+C.LAB.BRZ ordered. EDMS EDMS 16:33 16:33 PROBNP+C.LAB.BRZ ordered. EDMS EDMS 16:33 16:33 PROTIME (+INR)+COAG.LAB.BRZ ordered. EDMS EDMS 16:33 16:33 Troponin High Sensitivity+C.LAB.BRZ ordered. EDMS EDMS 16:33 16:33 LIPASE+C.LAB.BRZ ordered. EDMS EDMS 16:33 16:33 Chest Single View+RAD.RAD.BRZ ordered. EDMS EDMS 18:17 17:53 Extremity Venous Uni Ltd+US.RAD.BRZ ordered. EDMS EDMS 19:45 16:32 NS 0.9% IV 1000 ml IV at 1000 ml once; to be given as a bolus over 60 minutes vc1 ordered. sin
--- NOTE | 2025-05-05 19:34 | RAD REPORT ---
EXAMINATION: UPPER EXTREMITY VENOUS UNILATE CLINICAL INDICATION: Male, 44 years old. [facility] MAIN PAIN Bed Name: [facility] TECHNIQUE: Complete venous duplex sonography of the left upper extremity was performed. The examinati on included compression for vein patency, color Doppler imaging and flow augmentation in response to distal compression of the internal jugular, brachiocephalic, subclavian, axillary, brachial, radia l, ulnar, cephalic and basilic veins. COMPARISON: No prior exam. FINDINGS: Duplex sonography testing of the veins of the left upper extremity is completed. Color flow imaging s hows all veins to be compressible with appropriate color filling. Pulsatile and phasic flow is present within the upper extremity deep and superficial veins examined. IMPRESSION: There is no deep vein or superficial vein thrombosis.
[2025-05-05] MEDS ORDERED: HYDROMORPHONE HCL 1 MG/ML INJ ONE (19:49)
[2025-05-05] MEDS ORDERED: ONDANSETRON 4 MG/2 ML VIAL ONE (19:49)
[2025-05-05] MEDS ORDERED: FAMOTIDINE 20 MG/2 ML VIAL IV ONE (19:50)
[2025-05-05] MEDS ORDERED: ASPIRIN 81 MG CHEWABLE TABLET ONE (19:50)
[2025-05-05 20:53] VITALS: TEMP 98.3
[2025-05-05 20:56] VITALS: BP 177/96; O2SAT 96
== END 2025-05-05 20:16 | disposition home or self-care (01) ==
LOC: ER 16:12
DX: R07.89 Other chest pain (principal); I10 Essential (primary) hypertension
CPT/HCPCS: 93005; 85025; 80048; 36415; 83735; 85610; 80076; 84484; 83690; 83880; 71045; 93971; 96375; 96374; 99284; J1171; J2405